=== PATIENT | male | born 1970 | race African-American/Black ===

== ENCOUNTER 2020-06-04 10:17 | Emergency (ER) | payer SELFPAY ==
[2020-06-04] MEDS ORDERED: MORPHINE 4 MG/ML SYR ONE (10:54)
[2020-06-04] MEDS ORDERED: ONDANSETRON 4 MG/2 ML VIAL ONE (10:54)
[2020-06-04 10:56] LABS: Basophils % 0.5 % (0-1.3); Hematocrit 46.5 % (39.6-49.0); Lymphocytes % 36.6 % (15.3-44.8); MPV 8.5 fL (7.6-11.3); RBC Red Blood Cell Count 5.41 M/uL (4.33-5.43)
--- NOTE | 2020-06-04 11:06 | RAD REPORT ---
EXAM DESCRIPTION: CT - Stone Protocol - 06/04/2020 10:55 am CLINICAL HISTORY: Flank pain. right flank/low back pain COMPARISON: No comparisons TECHNIQUE: Axial images were obtained without oral or IV contrast. Lack of contrast limits solid org an and vascular assessment. The [id number] spans the entirety of the system partially obscuring uppermost abdomen and lung bases. Coronal reformatted images were obtained and reviewed. All CT scans are performed using dose optimization technique as appropriate and may include automated exposure control or mA/KV adjustment according to patient size. FINDINGS: The lower lung leach are clear. Imaged portions of the liver and spleen show no suspicious findings on non-contrast imaging. The panc reas and adrenal glands are normal. No pathologic lymphadenopathy in the abdomen or pelvis. No urinary tract stones or obstructive uropathy. No bowel obstruction, free air, free fluid or abscess. Normal appendix noted. No significant bony abnormality. Small umbilical and left inguinal hernia containing fat. IMPRESSION: No urinary tract stones or obstructive uropathy.
[2020-06-04 11:12] LABS: Albumin 4.1 g/dL (3.4-5.0); Bilirubin Direct 0.2 mg/dL (0-0.2); Bilirubin Total 0.7 mg/dL (0.2-1.0); Potassium 4.2 mmol/L (3.5-5.1); Protein, Total 9.5 g/dL (6.4-8.2)
[2020-06-04 11:13] LABS: Urine Blood NEGATIVE (NEG); Urine Glucose NEGATIVE (NEG); Urine Protein 2+ (NEG); Urine Specific Gravity >1.030 (1.005-1.030); Urine pH 5.5 (5.0-7.0)
[2020-06-04 11:16] LABS: Urine Bacteria <20 /HPF (NONE SEEN); Urine Culture Reflex Order NOT NEEDED; Urine Mucus 3+ /HPF (NONE SEEN); Urine RBC <5 /HPF (NONE SEEN)
--- NOTE | 2020-06-04 11:27 | ER ---
Nurse's Notes [facility] Name: Noah Putnam Age: 49 yrs Sex: Male : 1970 Arrival Date: 06/04/2020 Time: 10:19 Bed 14 Private MD: Diagnosis: Low back pain;Muscle spasm of back Presentation: 06/04 10:30 Chief complaint: Patient states: right low back pain started this morning around 7 am, iw also had dark/orange colored urine, denies abd pain or n/v. Coronavirus screen: At this time, the client does not indicate any symptoms associated with coronavirus-19. Ebola Screen: Patient negative for fever greater than or equal to 101.5 degrees Fahrenheit, and additional compatible Ebola Virus Disease symptoms Patient denies exposure to infectious person. Patient denies travel to an Ebola-affected area in the 21 days before illness onset. No symptoms or risks identified at this time. Initial Sepsis Screen: Does the patient meet any 2 criteria? No. Patient's initial sepsis screen is negative. Does the patient have a suspected source of infection? No. Patient's initial sepsis screen is negative. Risk Assessment: Do you want to hurt yourself or someone else? Patient reports no desire to harm self or others. Onset of symptoms was June 04, 2020. 10:30 Method Of Arrival: Ambulatory iw 10:30 Acuity: BREEZY 3 iw Historical: - Allergies: 10:32 No Known Allergies; iw - Home Meds: 10:32 lisinopril 10 mg Oral tab 1 tab once daily [Active]; amlodipine 10 mg tab 1 tab once iw daily [Active]; - PMHx: 10:32 Hypertension; herniated disc; iw - PSHx: 10:32 wrist; iw - Immunization history:: Adult Immunizations up to date. - Social history:: Smoking status: . - Family history:: not pertinent. - Hospitalizations: : No recent hospitalization is reported. Screenin:39 Abuse screen: Denies threats or abuse. Denies injuries from another. Nutritional iw screening: No deficits noted. Tuberculosis screening: No symptoms or risk factors identified. Fall Risk None identified. Assessment: 10:30 General: Appears in no apparent distress. uncomfortable, Behavior is calm, cooperative, jl7 appropriate for age. Pain: Complains of pain in right low back Pain does not radiate. Pain currently is 10 out of 10 on a pain scale. Pain began suddenly, Is continuous. Neuro: Level of Consciousness is awake, alert, obeys commands, Oriented to person, place, time, situation. Cardiovascular: Patient's skin is warm and dry. Respiratory: Airway is patent Respiratory effort is even, unlabored, Respiratory pattern is regular, symmetrical. GI: Abdomen is non-distended. : No signs and/or symptoms were reported regarding the genitourinary system. Denies burning with urination, pain with urination. Derm: Skin is pink, warm \T\ dry. Musculoskeletal: Range of motion: intact in all extremities. 11:30 Reassessment: Patient appears in no apparent distress at this time. Patient and/or jl7 family updated on plan of care and expected duration. Pain level reassessed. Patient is alert, oriented x 3, equal unlabored respirations, skin warm/dry/pink. Patient states feeling better. Patient states symptoms have improved. 11:31 Reassessment: pt will be discharged after fluids are done infusing. jl7 Vital Signs: 10:30 BP 136 / 100; Pulse 126; Resp 15; Pulse Ox 100% ; Height 6 ft. 5 in. (195.58 cm) (R); jl7 Pain 10/10; 11:31 BP 121 / 83; Pulse 87; Resp 15; Pulse Ox 100% ; Pain 0/10; jl7 ED Course: 10:19 Patient arrived in ED. ds1 10:24 Davy Abebe MD is Attending Physician. rn 10:27 Taras Beverly RN is Primary Nurse. jl7 10:31 Triage completed. iw 10:32 Arm band placed on. iw 10:35 Patient has correct armband on for positive identification. Bed in low position. Call jl7 light in reach. Side rails up X 1. Pulse ox on. NIBP on. 10:54 Urine Microscopic Only Sent. dh3 10:55 CT Stone Protocol In Process Unspecified. EDMS 12:38 No provider procedures requiring assistance completed. IV discontinued, intact, iw bleeding controlled, No redness/swelling at site. Pressure dressing applied. Administered Medications: 10:43 Drug: Zofran (Ondansetron) 4 mg Route: IVP; Site: right antecubital; jl7 11:10 Follow up: Response: No adverse reaction jl7 10:45 Drug: morphine 4 mg Route: IVP; Site: right antecubital; jl7 11:00 Follow up: Response: No adverse reaction; Pain is decreased jl7 11:20 Drug: Decadron - Dexamethasone 10 mg Route: IVP; Site: right antecubital; jl7 11:50 Follow up: Response: No adverse reaction; Pain is decreased jl7 11:20 Drug: NS 0.9% 500 ml Route: IV; Rate: bolus; Site: right antecubital; jl7 11:50 Follow up: Response: No adverse reaction; IV Status: Completed infusion; IV Intake: jl7 500ml 11:23 Drug: TORadol - Ketorolac 15 mg Route: IVP; Site: right antecubital; jl7 11:45 Follow up: Response: No adverse reaction; Pain is decreased jl7 Outcome: 11:27 Discharge ordered by . rn 12:38 Discharged to home ambulatory. iw 12:38 Condition: good 12:38 Discharge instructions given to patient, Instructed on discharge instructions, follow up and referral plans. medication usage, Demonstrated understanding of instructions, follow-up care, medications, Prescriptions given X 3. 12:39 Patient left the ED. iw Signatures: Dispatcher [employer] EDAK Deedee Tyler ds1 Brook Siddiqui RN RN iw Nieto, Roman, MD MD rn Leal, Jahala, RN RN jl7 Stephany Membreno 3
--- NOTE | 2020-06-04 11:27 | EDPHYS ---
Physician Documentation [facility] Name: Noah Putnam Age: 49 yrs Sex: Male : 1970 Arrival Date: 06/04/2020 Time: 10:19 Bed 14 Private MD: ED Physician Davy Abebe HPI: 06/04 10:35 This 49 yrs old Black Male presents to ER via Ambulatory with complaints of Kidney rn Pain/back pain. 10:35 The patient complains of pain in the right low back. Onset: The symptoms/episode rn began/occurred this morning. Modifying factors: The symptoms are alleviated by nothing. the symptoms are aggravated by movement, palpation/percussion. Severity of pain: At its worst the pain was moderate in the emergency department the pain is unchanged. The patient has not experienced similar symptoms in the past. The patient has not recently seen a physician. Denies injury or heavy lifting. + sudden onset right lower back pain that began this morning, non-radiating, did notice urine looked "off". . Historical: - Allergies: 10:32 No Known Allergies; iw - Home Meds: 10:32 lisinopril 10 mg Oral tab 1 tab once daily [Active]; amlodipine 10 mg tab 1 tab once iw daily [Active]; - PMHx: 10:32 Hypertension; herniated disc; iw - PSHx: 10:32 wrist; iw - Immunization history:: Adult Immunizations up to date. - Social history:: Smoking status: . - Family history:: not pertinent. - Hospitalizations: : No recent hospitalization is reported. ROS: 10:35 Constitutional: Negative for fever, chills, and weight loss, Eyes: Negative for injury, rn pain, redness, and discharge, Cardiovascular: Negative for chest pain, palpitations, and edema, Respiratory: Negative for shortness of breath, cough, wheezing, and pleuritic chest pain, Abdomen/GI: Negative for abdominal pain, nausea, vomiting, diarrhea, and constipation, Back: + right lower back pain : Negative for injury, bleeding, discharge, and swelling, MS/Extremity: Negative for injury and deformity, Skin: Negative for injury, rash, and discoloration, Neuro: Negative for headache, weakness, numbness, tingling, and seizure. Exam: 10:35 Constitutional: This is a well developed, well nourished patient who is awake, alert, rn and in no acute distress. Head/Face: Normocephalic, atraumatic. Cardiovascular: Tachycardic, regular Respiratory: Speaking full sentences. No increased work of breathing, no retractions or nasal flaring. Abdomen/GI: soft, non-tender Back: No spinal tenderness. No costovertebral tenderness. Full range of motion. Skin: Warm, dry with normal turgor. Normal color with no rashes, no lesions, and no evidence of cellulitis. MS/ Extremity: Pulses equal, no cyanosis. Neurovascular intact. Full, normal range of motion. Equal circumference. Neuro: Awake and alert, GCS 15, oriented to person, place, time, and situation. Cranial nerves II-XII grossly intact. Motor strength 5/5 in all extremities. Sensory grossly intact. Cerebellar exam normal. Normal gait. Vital Signs: 10:30 BP 136 / 100; Pulse 126; Resp 15; Pulse Ox 100% ; Height 6 ft. 5 in. (195.58 cm) (R); jl7 Pain 10/10; 11:31 BP 121 / 83; Pulse 87; Resp 15; Pulse Ox 100% ; Pain 0/10; jl7 MDM: 10:24 Patient medically screened. rn 11:25 Differential diagnosis: nephrolithiasis, UTI, muscle strain, radiculopathy. Data rn reviewed: vital signs, nurses notes, lab test result(s), radiologic studies, CT scan, and as a result, I will discharge patient. Counseling: I had a detailed discussion with the patient and/or guardian regarding: the historical points, exam findings, and any diagnostic results supporting the discharge/admit diagnosis, lab results, radiology results, the need for outpatient follow up, to return to the emergency department if symptoms worsen or persist or if there are any questions or concerns that arise at home. Response to treatment: the patient's symptoms have mildly improved after treatment, and as a result, I will discharge patient. Special discussion: I discussed with the patient/guardian in detail that at this point there is no indication for admission to the hospital. It is understood, however, that if the symptoms persist or worsen the patient needs to return immediately for re-evaluation. ED course: CT stone protocol neg for acute finding, will dc home with pcp f/u, steroids and muscle relaxer. . 06/04 10:34 Order name: Basic Metabolic Panel; Complete Time: 11:25 rn 06/04 10:34 Order name: CBC with Diff; Complete Time: 11:11 rn 06/04 10:34 Order name: Hepatic Function; Complete Time: 11:25 rn 06/04 10:34 Order name: Lipase; Complete Time: 11:25 rn 06/04 10:34 Order name: Urine Microscopic Only; Complete Time: 11:25 rn 06/04 10:58 Order name: Urine Dipstick--Ancillary (enter results); Complete Time: 11:25 bd 06/04 10:34 Order name: IV Saline Lock; Complete Time: 10:50 rn 06/04 10:34 Order name: Labs collected and sent; Complete Time: 10:50 rn 06/04 10:34 Order name: CT Stone Protocol; Complete Time: 11: rn 06/04 10:34 Order name: Urine Dipstick-Ancillary (obtain specimen); Complete Time: 10:40 rn Administered Medications: 10:43 Drug: Zofran (Ondansetron) 4 mg Route: IVP; Site: right antecubital; jl7 11:10 Follow up: Response: No adverse reaction jl7 10:45 Drug: morphine 4 mg Route: IVP; Site: right antecubital; jl7 11:00 Follow up: Response: No adverse reaction; Pain is decreased jl7 11:20 Drug: Decadron - Dexamethasone 10 mg Route: IVP; Site: right antecubital; jl7 11:50 Follow up: Response: No adverse reaction; Pain is decreased jl7 11:20 Drug: NS 0.9% 500 ml Route: IV; Rate: bolus; Site: right antecubital; jl7 11:50 Follow up: Response: No adverse reaction; IV Status: Completed infusion; IV Intake: jl7 500ml 11:23 Drug: TORadol - Ketorolac 15 mg Route: IVP; Site: right antecubital; jl7 11:45 Follow up: Response: No adverse reaction; Pain is decreased jl7 Disposition: 06/04/20 11:27 Discharged to Home. Impression: Low back pain, Muscle spasm of back. - Condition is Stable. - Discharge Instructions: Back Pain, Adult, Muscle Cramps and Spasms, Musculoskeletal Pain, Back Exercises, [id number]. - Prescriptions for Ultram 50 mg Oral Tablet - take 1 tablet by ORAL route every 6 hours As needed; 12 tablet. Cyclobenzaprine 10 mg Oral Tablet - take 1 tablet by ORAL route every 8 hours As needed; 15 tablet. Medrol (Soto) 4 mg Oral Tablets, Dose Pack - take 1 tablet by ORAL route as directed - follow package instructions; 1 packet. - Work release form, Medication Reconciliation Form, Thank You Letter, Antibiotic Education, Prescription Opioid Use form. - Follow up: Private Physician; When: As needed; Reason: Recheck today's complaints, Re-evaluation by your physician. - Problem is new. - Symptoms have improved. Signatures: Dispatcher [employer] EDBrook Farris RN RN iw Nieto, Roman, MD MD rn Leal, Jahala, RN RN jl7 Corrections: (The following items were deleted from the chart) 12:39 11:27 06/04/2020 11:27 Discharged to Home. Impression: Low back pain; Muscle spasm of iw back. Condition is Stable. Forms are Medication Reconciliation Form, Thank You Letter, Antibiotic Education, Prescription Opioid Use. Follow up: Private Physician; When: As needed; Reason: Recheck today's complaints, Re-evaluation by your physician. Problem is new. Symptoms have improved. rn
[2020-06-04] MEDS ORDERED: KETOROLAC 30 MG/ML INJ ONE (11:33)
[2020-06-04] MEDS ORDERED: dexAMETHasone 10 MG/ML VIAL ONE (11:33)
[2020-06-04] MEDS ORDERED: NA CHLORIDE 0.9% 500 ML ONE (11:34)
[2020-06-04 12:44] VITALS: O2SAT 100
[2020-06-04 12:45] VITALS: BP 121/83
== END 2020-06-04 12:39 | disposition home or self-care (01) ==
LOC: ER 10:17
DX: M54.5 Low back pain (principal); M62.830 Muscle spasm of back; I10 Essential (primary) hypertension
CPT/HCPCS: 36415; 74176; 76377; 80048; 80076; 81003; 81015; 83690; 85025; 96374; 96375; 99284; J1100; J2405; J7040

== ENCOUNTER 2021-04-03 17:02 | Emergency (ER) | payer SELFPAY ==
--- OUTSIDE RECORDS SUMMARY | 2021-04-03 17:04 | XMS REPORT | Continuity of Care Document ---
:1970 Author Organization [facility] t Address [address] [place] [address] Care Team Providers Name Role Phone Harvinder WALDROP Attending Clinician Pcp, Does Not Have A Attending Clinician Isabela BARRIGA, T Attending Clinician Unavailable Edith Bustillo Attending Clinician Ember Siddiqui DO Attending Clinician Doctor Unassigned, Name Attending Clinician Unavailable Yenifer Valdivia Attending Clinician Problems This patient has no known problems. Allergies, Adverse Reactions, Alerts This patient has no known allergies or adverse reactions. Medications This patient has no known medications. Procedures This patient has no known procedures. Encounters Start End Encounter Admission Attending Care Care Encounter Source Date/Time Date/Time Type Type Clinicians Facility Department ID 2021-04-01 2021-04-01 Emergency [facility] [id number] 20:06:00 21:56:00 Kate Krueger [id number] [place] [id number] [place] [id number] 2021-03-17 2021-03-17 Emergency [facility] [id number] 20:09:00 22:19:00 Kate Krueger [id number] [place] [id number] [place] [id number] 2020-11-15 2020-11-15 Telephone Pcp[facility] [id number] 00:00:00 00:00:00 Patient EVE [id number] Does Not HOSPITAL [id number] Have A [id number] 2020-11-15 2020-11-15 Letter KARL Mar [id number] 00:00:00 00:00:00 (Out) Mirna PRADO [id number] [place] [id number] 2020-11-14 2020-11-14 Emergency [facility] [id number] 21:29:00 22:55:00 Stacey Krueger [id number] [place] [id number] [place] [id number] 2020-09-30 2020-09-30 Emergency [facility] [id number] 08:03:00 10:45:00 Jessy Krueger [id number] [place] [id number] 2020-09-30 2020-09-30 Orders Doctor KARL [id number] 00:00:00 00:00:00 Only Unassigned, EVE [id number] [place] [facility] [id number] 2020-07-01 2020-07-01 Emergency [facility] [id number] 21:58:00 23:54:00 Felipe Krueger [id number] [place] [id number] [place] [id number] Results This patient has no known results.
--- NOTE | 2021-04-03 19:16 | ER ---
Nurse's Notes [facility] Name: Noah Putnam Age: 50 yrs Sex: Male : 1970 Arrival Date: 04/03/2021 Time: 17:06 Bed 12 Private MD: Diagnosis: Acute sinusitis, unspecified Presentation: 04/03 17:13 Chief complaint: Patient states: Sinus congestion, cough x 8 days. Denies fever. Was at [address] on 04/01/2021, was tested negative for Strep, Flu and Covid. I am just having severe sinus infection and drainage. Denies fever. Coronavirus screen: The client reports previous COVID testing was negative. Date of collection: April 01, 2021. Ebola Screen: Patient negative for fever greater than or equal to 101.5 degrees Fahrenheit, and additional compatible Ebola Virus Disease symptoms Patient denies exposure to infectious person. Patient denies travel to an Ebola-affected area in the 21 days before illness onset. No symptoms or risks identified at this time. Initial Sepsis Screen: Does the patient meet any 2 criteria? No. Patient's initial sepsis screen is negative. Does the patient have a suspected source of infection? No. Patient's initial sepsis screen is negative. Risk Assessment: Do you want to hurt yourself or someone else? Patient reports no desire to harm self or others. Onset of symptoms was April 03, 2021. 17:13 Method Of Arrival: Ambulatory ca1 17:13 Acuity: BREEZY 4 ca1 Historical: - Allergies: 17:17 No Known Allergies; ca1 - Home Meds: 17:17 amlodipine 10 mg tab 1 tab once daily [Active]; lisinopril 10 mg Oral tab 1 tab once ca1 daily [Active]; - PMHx: 17:17 Herniated disc; Hypertension; ca1 - Immunization history:: Client reports having NOT received the Covid vaccine. Flu vaccine is up to date. - Social history:: Smoking status: Patient denies any tobacco usage or history of. Screenin:00 Abuse screen: Denies threats or abuse. Denies injuries from another. Nutritional ca1 screening: No deficits noted. Tuberculosis screening: No symptoms or risk factors identified. Fall Risk None identified. Assessment: 17:13 Reassessment: PT refused swabs at this time. ca1 19:00 General: Appears in no apparent distress. comfortable, Behavior is calm, cooperative, ca1 appropriate for age. Pain: Denies pain. Neuro: Level of Consciousness is awake, alert, obeys commands, Oriented to person, place, time, situation. Cardiovascular: Capillary refill < 3 seconds Patient's skin is warm and dry. Respiratory: Airway is patent Respiratory effort is even, unlabored, Respiratory pattern is regular, symmetrical, Breath sounds are clear bilaterally. EENT: Reports nasal congestion nasal discharge. Derm: Skin is intact, is healthy with good turgor, Skin is pink, warm \T\ dry. Musculoskeletal: Circulation, motion, and sensation intact. Capillary refill < 3 seconds. 19:58 Reassessment: Patient appears in no apparent distress at this time. Patient is alert, ca1 oriented x 3, equal unlabored respirations, skin warm/dry/pink. Vital Signs: 17:13 BP 102 / 58; Pulse 79; Resp 16 S; Temp 97.6(TE); Pulse Ox 99% on R/A; Weight 126.1 kg ca1 (R); Height 6 ft. 5 in. (195.58 cm) (R); Pain 6/10; 19:00 BP 111 / 68; Pulse 86; Resp 16 S; Pulse Ox 99% on R/A; ca1 17:13 Body Mass Index 32.97 (126.10 kg, 195.58 cm) ca1 ED Course: 17:06 Patient arrived in ED. ds1 17:16 Triage completed. ca1 17:17 Arm band placed on right wrist. ca1 18:58 Mary Kingston, LINUS is Primary Nurse. ca1 18:59 Jimbo Galvan PA is PHCP. cp 18:59 Davy Abebe MD is Attending Physician. cp 19:00 Patient has correct armband on for positive identification. Bed in low position. Call ca1 light in reach. 19:58 No provider procedures requiring assistance completed. Patient did not have IV access ca1 during this emergency room visit. Administered Medications: No medications were administered Outcome: 19:16 Discharge ordered by . cp 19:58 Discharged to home ambulatory. ca1 19:58 Condition: stable 19:58 Discharge instructions given to patient, Instructed on discharge instructions, follow up and referral plans. medication usage, Demonstrated understanding of instructions, follow-up care, medications, Prescriptions given X 3. 19:58 Patient left the ED. ca1 Signatures: Deedee Tyler ds1 Jimbo Galvan, PA PA cp Acob, Mary, RN RN ca1
--- NOTE | 2021-04-03 19:16 | EDPHYS ---
Physician Documentation [facility] Name: Noah Putnam Age: 50 yrs Sex: Male : 1970 Arrival Date: 04/03/2021 Time: 17:06 Bed 12 Private MD: ED Physician Davy Abebe HPI: 04/03 19:10 This 50 yrs old Black Male presents to ER via Ambulatory with complaints of Congestion, cp Cough, Sinus Congestion. 19:11 The patient or guardian reports sinus pressure/congestion. Onset: The symptoms/episode cp began/occurred 8 day(s) ago. Associated signs and symptoms: Pertinent positives: rhinorrhea, sore throat, productive cough, Pertinent negatives: diarrhea, ear ache, fever, vomiting. Severity of symptoms: in the emergency department the symptoms are unchanged despite home interventions. Historical: - Allergies: 17:17 No Known Allergies; ca1 - Home Meds: 17:17 amlodipine 10 mg tab 1 tab once daily [Active]; lisinopril 10 mg Oral tab 1 tab once ca1 daily [Active]; - PMHx: 17:17 Herniated disc; Hypertension; ca1 - Immunization history:: Client reports having NOT received the Covid vaccine. Flu vaccine is up to date. - Social history:: Smoking status: Patient denies any tobacco usage or history of. ROS: 19:12 Eyes: Negative for injury, pain, redness, and discharge. cp 19:12 Constitutional: Negative for body aches, chills, fever, poor PO intake. 19:12 ENT: Positive for rhinorrhea, sinus congestion, sinus pain, sore throat. 19:12 Respiratory: Positive for cough, "sounds productive", Negative for shortness of breath, wheezing. 19:12 Abdomen/GI: Negative for abdominal pain, vomiting, diarrhea, constipation. 19:12 Skin: Negative for rash. 19:12 All other systems are negative. Exam: 19:13 Constitutional: The patient appears in no acute distress, alert, awake, non-toxic, well cp developed, well nourished. 19:13 Head/face: Sinus tenderness, that is moderate, is located over the right frontal sinus, left frontal sinus, right maxillary sinus and left maxillary sinus. 19:13 Eyes: Periorbital structures: appear normal, Conjunctiva: normal, no exudate, no injection, Sclera: no appreciated abnormality, Lids and lashes: appear normal, bilaterally. 19:13 ENT: External ear(s): are unremarkable, Ear canal(s): are normal, clear, TM's: dullness, bilaterally, Nose: is normal, Mouth: Lips: moist, Oral mucosa: moist, Posterior pharynx: Airway: no evidence of obstruction, patent. 19:13 Neck: ROM/movement: is normal, is supple, no meningismus, no nuchal rigidity, Lymph nodes: no appreciated lymphadenopathy. 19:13 Chest/axilla: Inspection: normal. 19:13 Cardiovascular: Rate: normal. 19:13 Respiratory: the patient does not display signs of respiratory distress, Respirations: normal, no use of accessory muscles, no retractions, labored breathing, is not present, Breath sounds: decreased breath sounds, are not appreciated, stridor, is not appreciated, + upper airway congestion. wheezing: is not appreciated. Vital Signs: 17:13 BP 102 / 58; Pulse 79; Resp 16 S; Temp 97.6(TE); Pulse Ox 99% on R/A; Weight 126.1 kg ca1 (R); Height 6 ft. 5 in. (195.58 cm) (R); Pain 6/10; 19:00 BP 111 / 68; Pulse 86; Resp 16 S; Pulse Ox 99% on R/A; ca1 17:13 Body Mass Index 32.97 (126.10 kg, 195.58 cm) ca1 MDM: 19:10 Patient medically screened. cp 19:14 Differential diagnosis: bronchitis, flu, URI, sinusitis, bronchitis, pneumonia. Data cp reviewed: vital signs, nurses notes, and as a result, I will discharge patient. Counseling: I had a detailed discussion with the patient and/or guardian regarding: the historical points, exam findings, and any diagnostic results supporting the discharge/admit diagnosis, to return to the emergency department if symptoms worsen or persist or if there are any questions or concerns that arise at home. Administered Medications: No medications were administered Disposition: 19:20 Chart complete. cp 23:17 Co-signature as Attending Physician, Davy Abebe MD. rn Disposition Summary: 04/03/21 19:16 Discharge Ordered Location: Home cp Problem: new cp Symptoms: are unchanged cp Condition: Stable cp Diagnosis - Acute sinusitis, unspecified cp Followup: cp - With: Private Physician - When: 2 - 3 days - Reason: Worsening of condition Discharge Instructions: - Discharge Summary Sheet cp - Sinusitis, Adult cp Forms: - Medication Reconciliation Form cp - Thank You Letter cp - Antibiotic Education cp - Prescription Opioid Use cp Prescriptions: - Flonase Allergy Relief 50 mcg/actuation Nasal spray,suspension - spray 1 spray by INTRANASAL route once daily; 1 Applicator; Refills: 0, Product cp Selection Permitted - Augmentin 875-125 mg Oral Tablet - take 1 tablet by ORAL route every 12 hours for 10 days; 20 tablet; Refills: 0, cp Product Selection Permitted - Tessalon Perles 100 mg Oral Capsule - take 2 capsule by ORAL route every 8 hours As needed; 30 capsule; Refills: 0, cp Product Selection Permitted Signatures: Dvay Abebe MD MD rn Jimbo Galvan PA PA cp Acob, Cheryl RN RN ca1
[2021-04-03 20:03] VITALS: TEMP 97.6; O2SAT 99
[2021-04-03 20:04] VITALS: BP 111/68
== END 2021-04-03 19:58 | disposition home or self-care (01) ==
LOC: ER 17:02
DX: J01.90 Acute sinusitis, unspecified (principal); I10 Essential (primary) hypertension
CPT/HCPCS: 99282

== ENCOUNTER 2021-07-14 18:47 | Emergency (ER) | payer OTHER, SELFPAY ==
--- NOTE | 2021-07-14 20:48 | RAD REPORT ---
EXAM DESCRIPTION: RAD - Lumbar Spine 3 Views - 07/14/2021 8:20 pm CLINICAL HISTORY: Back pain FINDINGS: The alignment of the lumbar spine is satisfactory. No fracture or dislocation is seen. Mild to moderate disc space narrowing L5-S1 with mild subchondral sclerosis and osteophytes.
[2021-07-14] MEDS ORDERED: KETOROLAC 30 MG/ML INJ ONE (21:10)
--- NOTE | 2021-07-14 21:52 | EDPHYS ---
Physician Documentation [facility] Name: Noah Putnam Age: 50 yrs Sex: Male : 1970 Arrival Date: 07/14/2021 Time: 18:51 Bed 6 Private MD: ED Physician Anders Roman HPI: 07/14 20:06 This 50 yrs old Black Male presents to ER via Ambulatory with complaints of Back Pain, sp3 Leg Pain. 20:06 -year-old male with history of hypertension and prior lumbar disc herniation and left sp3 wrist fracture secondary to a fall in 2017 now presents with left lower leg radiculopathy and lumbar pain. Patient has not had any issues with this since 2017. Over the last 48 hours his pain is increased secondary to a mechanical fall he suffered 3 days ago after slipping on the floor. He denies changes in bowel or bladder patterns or any other secondary injury. There is no saddle paresthesia or lower extremity paresthesias. Patient is still able to ambulate though it is painful. On ROS patient denies headache, neck pain, chest pain, shortness breath, abdominal pain, nausea, vomiting, diarrhea, syncope, loss of pain or temperature, memory loss, any other neurological symptoms. He also denies fever and or URI symptoms, known sick contacts, or travel history. Patient is from [place] and has no local physician.. Historical: - Allergies: 19:11 No Known Allergies; lp1 - Home Meds: 19:11 amlodipine 10 mg tab 1 tab once daily [Active]; lisinopril 10 mg Oral tab 1 tab once lp1 daily [Active]; - PMHx: 19:11 Herniated disc; Hypertension; lp1 - PSHx: 19:11 Left arm surgery; lp1 - Immunization history:: Adult Immunizations up to date, Client reports receiving the 1st dose of the Covid vaccine. - Social history:: Smoking status: Patient denies any tobacco usage or history of. ROS: 20:11 Constitutional: Negative for fever, chills, and weight loss, Eyes: Negative for injury, sp3 pain, redness, and discharge, ENT: Negative for injury, pain, and discharge, Neck: Negative for injury, pain, and swelling, Cardiovascular: Negative for chest pain, palpitations, and edema, Respiratory: Negative for shortness of breath, cough, wheezing, and pleuritic chest pain, Abdomen/GI: Negative for abdominal pain, nausea, vomiting, diarrhea, and constipation, Skin: Negative for injury, rash, and discoloration, Allergy/Immunology: Negative for hives, rash, and allergies, Endocrine: Negative for neck swelling, polydipsia, polyuria, polyphagia, and marked weight changes, Hematologic/Lymphatic: Negative for swollen nodes, abnormal bleeding, and unusual bruising. 20:11 All other systems are negative. Exam: 20:12 Constitutional: This is a well developed, well nourished patient who is awake, alert, sp3 and in no acute distress. Head/Face: Normocephalic, atraumatic. Chest/axilla: Normal chest wall appearance and motion. Nontender with no deformity. No lesions are appreciated. Cardiovascular: Regular rate and rhythm with a normal S1 and S2. No gallops, murmurs, or rubs. Normal PMI, no JVD. No pulse deficits. Respiratory: Lungs have equal breath sounds bilaterally, clear to auscultation and percussion. No rales, rhonchi or wheezes noted. No increased work of breathing, no retractions or nasal flaring. Abdomen/GI: Soft, non-tender, with normal bowel sounds. No distension or tympany. No guarding or rebound. No evidence of tenderness throughout. Skin: Warm, dry with normal turgor. Normal color with no rashes, no lesions, and no evidence of cellulitis. MS/ Extremity: Pulses equal, no cyanosis. Neurovascular intact. Pain on straight leg raise on the left side at 25 degrees. Reflexes are normal as is Babinski's bilaterally. Neuro: Awake and alert, GCS 15, oriented to person, place, time, and situation. Cranial nerves II-XII grossly intact. Motor strength 5/5 in all extremities. Sensory grossly intact. Cerebellar exam normal. Antalgic gait secondary to pain. Psych: Awake, alert, with orientation to person, place and time. Behavior, mood, and affect are within normal limits. Vital Signs: 19:12 BP 131 / 85; Pulse 90; Resp 18; Temp 97.7(TE); Pulse Ox 97% on R/A; Weight 127.01 kg lp1 (R); Height 6 ft. 5 in. (195.58 cm); Pain 8/10; 20:39 BP 130 / 93; Pulse 81; Resp 18; Pulse Ox 98% on R/A; lh3 22:07 BP 126 / 72; Pulse 78; Resp 18; Pulse Ox 98% on R/A; lh3 19:12 Body Mass Index 33.20 (127.01 kg, 195.58 cm) lp1 MDM: 20:04 Patient medically screened. sp3 20:13 Data reviewed: vital signs, nurses notes. ED course: Patient will need lumbar x-rays sp3 secondary to his fall. MRI is not currently available and/or indicated emergently. Will need outpatient MRI to assess his discs. Will treat with ketorolac 60 mg intramuscularly and discharged on diclofenac and p.o. steroids. Will refer to local orthopedics for continued follow-up. Patient understands signs symptoms to look for to return including loss of bowel or bladder and inability to ambulate. We will also give patient light duty work note as he may continue to go to work.. 21:51 ED course: Lumbar x-rays are normal. Will discharge patient home on diclofenac and sp3 steroids orally.. 07/14 20:05 Order name: Lumbar Spine (3 Views) XRAY; Complete Time: 21:51 sp3 Administered Medications: 20:31 Drug: Ketorolac 60 mg Route: IM; Site: right deltoid; lh3 22:07 Follow up: Response: No adverse reaction lh3 Disposition Summary: 07/14/21 21:52 Discharge Ordered Location: Home sp3 Condition: Stable sp3 Diagnosis - Radiculopathy, lumbar region sp3 Followup: sp3 - With: Kennedy Dozier MD - When: Upon discharge from the Emergency Department - Reason: Recheck today's complaints Discharge Instructions: - Discharge Summary Sheet sp3 - Lumbosacral Radiculopathy sp3 - Radicular Pain sp3 - Form - Excuse from Work, School, or Physical Activity lh3 Forms: - Medication Reconciliation Form sp3 - Thank You Letter sp3 - Antibiotic Education sp3 - Prescription Opioid Use sp3 Prescriptions: - Diclofenac Sodium 75 mg Oral Tablet Sustained Release - take 1 tablet by ORAL route 2 times per day; 30 tablet; Refills: 0, Product sp3 Selection Permitted - Medrol (Soto) 4 mg Oral Tablets, Dose Pack - take 1 tablet by ORAL route as directed - follow package instructions; 1 sp3 packet; Refills: 0, Product Selection Permitted Signatures: Dispatcher [employer] Darlin Stark RN RN lp1 Anders Roman MD MD sp3 Renee Nassar RN RN lh3
--- NOTE | 2021-07-14 21:52 | ER ---
Nurse's Notes [facility] Name: Noah Putnam Age: 50 yrs Sex: Male : 1970 Arrival Date: 07/14/2021 Time: 18:51 Bed 6 Private MD: Diagnosis: Radiculopathy, lumbar region Presentation: 07/14 19:10 Chief complaint: Patient states: Low back pain x 2 days, reports today, pain radiating lp1 down left leg, tingling, shooting pain; Hx of old L7 injury with herniated discs; Denies any recent injury. Coronavirus screen: At this time, the client does not indicate any symptoms associated with coronavirus-19. Ebola Screen: No symptoms or risks identified at this time. Risk Assessment: Do you want to hurt yourself or someone else? Patient reports no desire to harm self or others. Onset of symptoms was July 14, 2021. 19:10 Method Of Arrival: Ambulatory lp1 19:10 Acuity: BREEZY 3 lp1 19:12 Initial Sepsis Screen: Does the patient meet any 2 criteria? No. Patient's initial lp1 sepsis screen is negative. Does the patient have a suspected source of infection? No. Patient's initial sepsis screen is negative. Triage Assessment: 22:08 General: Appears. lh3 Historical: - Allergies: 19:11 No Known Allergies; lp1 - Home Meds: 19:11 amlodipine 10 mg tab 1 tab once daily [Active]; lisinopril 10 mg Oral tab 1 tab once lp1 daily [Active]; - PMHx: 19:11 Herniated disc; Hypertension; lp1 - PSHx: 19:11 Left arm surgery; lp1 - Immunization history:: Adult Immunizations up to date, Client reports receiving the 1st dose of the Covid vaccine. - Social history:: Smoking status: Patient denies any tobacco usage or history of. Screenin:31 Abuse screen: Denies threats or abuse. Denies injuries from another. Nutritional lh3 screening: No deficits noted. Tuberculosis screening: No symptoms or risk factors identified. Fall Risk None identified. Assessment: 20:31 Pain: Complains of pain in low back area Pain radiates to left leg Pain level that lh3 patient reports is acceptable is 8 out of 10 on a pain scale. Neuro: Level of Consciousness is awake, alert, obeys commands. Vital Signs: 19:12 BP 131 / 85; Pulse 90; Resp 18; Temp 97.7(TE); Pulse Ox 97% on R/A; Weight 127.01 kg lp1 (R); Height 6 ft. 5 in. (195.58 cm); Pain 8/10; 20:39 BP 130 / 93; Pulse 81; Resp 18; Pulse Ox 98% on R/A; lh3 22:07 BP 126 / 72; Pulse 78; Resp 18; Pulse Ox 98% on R/A; lh3 19:12 Body Mass Index 33.20 (127.01 kg, 195.58 cm) lp1 ED Course: 18:51 Patient arrived in ED. as 19:11 Triage completed. lp1 19:11 Arm band placed on left wrist. lp1 19:44 Anders Roman MD is Attending Physician. sp3 20:00 Marybel Cerna, RN is Primary Nurse. bs2 20:20 Lumbar Spine (3 Views) XRAY In Process Unspecified. EDMS 20:31 Patient has correct armband on for positive identification. Bed in low position. Call lh3 light in reach. 20:31 No provider procedures requiring assistance completed. Patient did not have IV access lh3 during this emergency room visit. 21:52 Kennedy Dozier MD is Referral Physician. sp3 Administered Medications: 20:31 Drug: Ketorolac 60 mg Route: IM; Site: right deltoid; 3 22:07 Follow up: Response: No adverse reaction 3 Outcome: 21:52 Discharge ordered by . sp3 22:08 Discharged to home ambulatory. lh3 22:08 Condition: good 22:08 Discharge instructions given to patient, Instructed on discharge instructions, follow up and referral plans. Demonstrated understanding of instructions, follow-up care, medications, Prescriptions given X 2. 22:09 Patient left the ED. 3 Signatures: Dispatcher [employer] EDMS Nataly Petersen Laura, RN RN lp1 Anders Roman MD MD sp3 Marybel Cerna, RN RN bs2 Renee Nassar RN RN lh3 Corrections: (The following items were deleted from the chart) 19:15 19:12 Pulse 90bpm; Resp 18bpm; Pulse Ox 97% RA; Temp 97.7F Temporal; 127.01 kg lp1 Reported; Height 6 ft. 5 in.; BMI: 33.2; Pain 8/10; lp1
[2021-07-14 22:43] VITALS: TEMP 97.7
[2021-07-14 22:45] VITALS: O2SAT 98
[2021-07-14 22:46] VITALS: BP 126/72
== END 2021-07-14 22:09 | disposition home or self-care (01) ==
LOC: ER 18:47
DX: M54.12 Radiculopathy, cervical region (principal); I10 Essential (primary) hypertension
CPT/HCPCS: 72100; 96372; 99283

== ENCOUNTER 2021-08-19 22:05 | Emergency (ER) | payer OTHER ==
--- OUTSIDE RECORDS SUMMARY | 2021-08-19 22:10 | XMS REPORT | Continuity of Care Document ---
:1970 Author Organization [facility] t Address [address] [place] [address] Care Team Providers Name Role Phone Pcp, Does Not Have A Primary Care Physician Shannon WALDROP, B Attending Clinician Yenifer ORTEGA Attending Clinician Unavailable Elliot HICKS, G Attending Clinician Nurse, Pob Immunization Attending Clinician Unavailable Christopher Clarke DO Attending Clinician Elías WALDROP Attending Clinician ELÍAS Attending Clinician Unavailable Pcp, Does Not Have A Attending Clinician Isabela BARRIGA T Attending Clinician Unavailable Aleida BUSTAMANTE R Attending Clinician Ember Siddiqui DO Attending Clinician Doctor Unassigned, Name Attending Clinician Unavailable Payers Payer Name Policy Type Policy Number Effective Date Expiration Date S ource Problems Condition Condition Condition Status Onset Resolution Last Treating Co mments Source Name Details Category Date Date Treatment Clinician Date No known No known Disease Unive rs active active ity of problems problems [facility] Allergies, Adverse Reactions, Alerts Allergy Allergy Status Severity Reaction(s) Onset Inactive Treating Comm ents Source Name Type Date Date Clinician NO KNOWN Drug Active Univers ALLERGIE Class ity of S [facility] Social History Social Habit Start Date Stop Date Quantity Comments Source Exposure to Not sure [facility] SARS-CoV-2 (event) Medica l Branch Sex Ass[birth year] At [birth year] [facility] 00:00:00 00:00:00 Medical Branch Smoking Status Start Date Stop Date Source Unknown if ever smoked [facility] Medical Branch Medications Ordered Filled Start Stop Current Ordering Indication Dosage Frequency Signature Comments Components Source Medication Medication Date Date Medication? Clinician (SIG) Name Name NaCl 0.9% 2020-0 2020- No 1000mL at 999 Uni vers (NS) bolus 9-10 09-10 mL/hr, ity of infusion 03:45: 05:00 1,000 mL, Jim as 1,000 mL 00 :00 IV Medical Piggyback, Branch ONCE, 1 dose, Carrie 05/23/21 at 2245, STAT NaCl 0.9% 2020-0 2020- No 1000mL at 999 Uni vers (NS) bolus 9-10 09-10 mL/hr, ity of infusion 03:45: 05:00 1,000 mL, Jim as 1,000 mL 00 :00 IV Medical Piggyback, Branch ONCE, 1 dose, Carrie 05/23/21 at 2245, STAT NaCl 0.9% 2020-0 2020- No 1000mL at 999 Uni vers (NS) bolus 9-10 09-10 mL/hr, ity of infusion 03:00: 03:00 1,000 mL, Jim as 1,000 mL 00 :00 IV Medical Piggyback, Branch ONCE, 1 dose, Carrie 05/23/21 at 2200, STAT NaCl 0.9% 2020-0 2020- No 1000mL at 999 Uni vers (NS) bolus 9-10 09-10 mL/hr, ity of infusion 03:00: 03:00 1,000 mL, Jim as 1,000 mL 00 :00 IV Medical Piggyback, Branch ONCE, 1 dose, Carrie 05/23/21 at 2200, STAT NaCl 0.9% 2020-0 2020- Yes 500mL at 999 Univ ers (NS) bolus 9-09 09-09 mL/hr, 500 it y of infusion 03:15: 15:14 mL, IV [place] 500 mL 00 :00 Piggyback, Medical ONCE, 1 Branch dose, 05/22/21 at 2215, STAT NaCl 0.9% 2020- Yes 500mL at 999 Univ ers (NS) bolus 05-23- mL/hr, 500 it y of infusion 03:15: 15:14 mL, IV [place] 500 mL 00 :00 Piggyback, Medical ONCE, 1 Branch dose, 05/22/21 at 2215, STAT dexamethaso 2020- No 10mg 10 mg, Uni vers ne 04-02 Intramuscu ity of (DECADRON 03:30: 02:47 lar, ONCE, [place] PHOSPHATE) 00 :00 1 dose, Medica l injection Mon Branch 10 mg 04/01/21 at 2230, STAT ketorolac 2020- No 60mg 60 mg, Unive rs (TORADOL) 03-18 Intramuscu ity of injection 04:00: 02:56 lar, ONCE, [place] 60 mg 00 :00 1 dose, Medical 03/17/21 Branch at 2300, VASILIY
Fa culty member approving Restricted medication : EMERGENCY ROOM, ibuprofen Yes [id number] 800mg Take 1 Univers 800 mg 7-04 tablet by ity of tablet 00:00: mouth [place] 00 every 8 Medical (eight) Branch hours as needed for Pain (scale 4-6). ibuprofen Yes [id number] 800mg Take 1 Univers 800 mg 7-04 tablet by ity of tablet 00:00: mouth [place] 00 every 8 Medical (eight) Branch hours as needed for Pain (scale 4-6). ibuprofen Yes [id number] 800mg Take 1 Univers 800 mg 7-04 tablet by ity of tablet 00:00: mouth [place] 00 every 8 Medical (eight) Branch hours as needed for Pain (scale 4-6). ibuprofen Yes [id number] 800mg Take 1 Univers 800 mg 7-04 tablet by ity of tablet 00:00: mouth [place] 00 every 8 Medical (eight) Branch hours as needed for Pain (scale 4-6). ibuprofen 0 Yes [id number] 800mg Take 1 Univers 800 mg 7-04 tablet by ity of tablet 00:00: mouth [place] 00 every 8 Medical (eight) Branch hours as needed for Pain (scale 4-6). ibuprofen Yes [id number] 800mg Take 1 Univers 800 mg 7-04 tablet by ity of tablet 00:00: mouth [place] 00 every 8 Medical (eight) Branch hours as needed for Pain (scale 4-6). ibuprofen 2020- No [id number] 800mg Take 1 Univers 800 mg 7-12 21- tablet by ity of tablet 00:00: 00:00 mouth [place] 00 :00 every 8 Medical (eight) Branch hours as needed for Pain (scale 4-6). ibuprofen 2020- No [id number] 800mg Take 1 Univers 800 mg -12 21- tablet by ity of tablet 00:00: 00:00 mouth [place] 00 :00 every 8 Medical (eight) Branch hours as needed for Pain (scale 4-6). acetaminoph 2020- No 4647 1{tbl} Take 1 U nivers en-codeine -12 19-12 tablet by ity of 300-30 mg 00:00: 04:59 mouth [place] tablet 00 :00 every 6 Medical (six) Branch hours as needed for Pain (scale 7-10) for up to 7 days. Indication s: acute pain benzonatate 2020- No 200mg 200 mg, U nivers (TESSALON 3-04 03-04 Oral, ity of PERLES) 05:00: 04:51 ONCE, 1 [place] capsule 200 00 :00 dose, Wed Med ical mg 11/14/20 at Branch 2300, Routine benzonatate Yes [id number] 100mg Take 1 Univers 100 mg 3-03 capsule by ity of capsule 00:00: mouth 3 00 (three) Medical times Branch daily as needed for Cough. benzonatate Yes [id number] 100mg Take 1 Univers 100 mg 3-03 capsule by ity of capsule 00:00: mouth 3 [place] 00 (three) Medical times Branch daily as needed for Cough. benzonatate 2020-0 Yes [id number] 100mg Take 1 Univers 100 mg 3-03 capsule by ity of capsule 00:00: mouth 3 [place] 00 (three) Medical times Branch daily as needed for Cough. benzonatate 0 Yes [id number] 100mg Take 1 Univers 100 mg 3-03 capsule by ity of capsule 00:00: mouth 3 [place] 00 (three) Medical times Branch daily as needed for Cough. benzonatate Yes [id number] 100mg Take 1 Univers 100 mg 3-03 capsule by ity of capsule 00:00: mouth 3 [place] 00 (three) Medical times Branch daily as needed for Cough. benzonatate Yes [id number] 100mg Take 1 Univers 100 mg 3-03 capsule by ity of capsule 00:00: mouth 3 [place] 00 (three) Medical times Branch daily as needed for Cough. benzonatate 2020- No [id number] 100mg Take 1 Univers 100 mg 3-03 09-09 capsule by ity of capsule 00:00: 00:00 mouth 3 [place] 00 :00 (three) Medical times Branch daily as needed for Cough. benzonatate 2020- No [id number] 100mg Take 1 Univers 100 mg 3-03 09-09 capsule by ity of capsule 00:00: 00:00 mouth 3 [place] 00 :00 (three) Medical times Branch daily as needed for Cough. diphenhydrA 2020- No 25mg 25 mg, Uni vers MINE 09-30 Slow IV ity of (BENADRYL) 16:00: 15:17 Push, [place] injection 00 :00 ONCE, 1 Medical 25 mg dose, [place] Branch 09/30/20 at 1000, STAT metoclopram 2020- No 10mg 10 mg, Uni vers jerilyn HCl 09-30 Slow IV ity of (REGLAN) 16:00: 15:17 Push, [place] injection 00 :00 ONCE, 1 Medical 10 mg dose, [place] Branch 09/30/20 at 1000, VASILIY NaCl 0.9% 2020- No 1000mL at 999 Uni vers (NS) bolus 09-30 mL/hr, ity of infusion 15:00: 16:45 1,000 mL, Jim as 1,000 mL 00 :00 IV Medical Infusion, Branch ONCE, 1 dose, [place] 09/30/20 at 0900, VASILIY lisinopriL Yes [id number] 10mg Take 1 Univers 10 mg 1-17 tablet by ity of tablet 00:00: mouth at [place] 00 bedtime. Medical Branch amLODIPine Yes [id number] 10mg Take 1 Univers (NORVASC) 1-17 tablet by ity o f 10 mg 00:00: mouth [place] tablet 00 daily. Medical Branch lisinopriL Yes [id number] 10mg Take 1 Univers 10 mg 1-17 tablet by ity of tablet 00:00: mouth at [place] 00 bedtime. Medical Branch amLODIPine Yes [id number] 10mg Take 1 Univers (NORVASC) 1-17 tablet by ity o f 10 mg 00:00: mouth [place] tablet 00 daily. Medical Branch lisinopriL Yes [id number] 10mg Take 1 Univers 10 mg 1-17 tablet by ity of tablet 00:00: mouth at [place] 00 bedtime. Medical Branch amLODIPine Yes [id number] 10mg Take 1 Univers (NORVASC) 1-17 tablet by ity o f 10 mg 00:00: mouth [place] tablet 00 daily. Medical Branch lisinopriL Yes [id number] 10mg Take 1 Univers 10 mg 1-17 tablet by ity of tablet 00:00: mouth at [place] 00 bedtime. Medical Branch amLODIPine Yes [id number] 10mg Take 1 Univers (NORVASC) 1-17 tablet by ity o f 10 mg 00:00: mouth [place] tablet 00 daily. Medical Branch lisinopriL Yes [id number] 10mg Take 1 Univers 10 mg 1-17 tablet by ity of tablet 00:00: mouth at [place] 00 bedtime. Medical Branch amLODIPine Yes [id number] 10mg Take 1 Univers (NORVASC) 1-17 tablet by ity o f 10 mg 00:00: mouth [place] tablet 00 daily. Medical Branch lisinopriL Yes [id number] 10mg Take 1 Univers 10 mg 1-17 tablet by ity of tablet 00:00: mouth at [place] 00 bedtime. Medical Branch amLODIPine Yes [id number] 10mg Take 1 Univers (NORVASC) 1-17 tablet by ity o f 10 mg 00:00: mouth [place] tablet 00 daily. Medical Branch lisinopriL Yes [id number] 10mg Take 1 Univers 10 mg 1-17 tablet by ity of tablet 00:00: mouth at [place] 00 bedtime. Medical Branch amLODIPine 2021-0 Yes [id number] 10mg Take 1 Univers (NORVASC) 1-17 tablet by ity o f 10 mg 00:00: mouth [place] tablet 00 daily. Medical Branch lisinopriL 2020-0 Yes [id number] 10mg Take 1 Univers 10 mg 1-17 tablet by ity of tablet 00:00: mouth at [place] 00 bedtime. Medical Branch amLODIPine 0 Yes [id number] 10mg Take 1 Univers (NORVASC) 1-17 tablet by ity o f 10 mg 00:00: mouth [place] tablet 00 daily. Medical Branch lisinopriL 0 Yes [id number] 10mg Take 1 Univers 10 mg 1-17 tablet by ity of tablet 00:00: mouth at [place] 00 bedtime. Medical Branch amLODIPine 0 Yes [id number] 10mg Take 1 Univers (NORVASC) 1-17 tablet by ity o f 10 mg 00:00: mouth [place] tablet 00 daily. Medical Branch lisinopriL 0 Yes [id number] 10mg Take 1 Univers 10 mg 1-17 tablet by ity of tablet 00:00: mouth at [place] 00 bedtime. Medical Branch amLODIPine 0 Yes [id number] 10mg Take 1 Univers (NORVASC) 1-17 tablet by ity o f 10 mg 00:00: mouth [place] tablet 00 daily. Medical Branch lisinopriL 0 Yes [id number] 10mg Take 1 Univers 10 mg 1-17 tablet by ity of tablet 00:00: mouth at [place] 00 bedtime. Medical Branch amLODIPine 0 Yes [id number] 10mg Take 1 Univers (NORVASC) 1-17 tablet by ity o f 10 mg 00:00: mouth [place] tablet 00 daily. Medical Branch lisinopriL 0 Yes [id number] 10mg Take 1 Univers 10 mg 1-17 tablet by ity of tablet 00:00: mouth at [place] 00 bedtime. Medical Branch amLODIPine 0 Yes [id number] 10mg Take 1 Univers (NORVASC) 1-17 tablet by ity o f 10 mg 00:00: mouth [place] tablet 00 daily. Medical Branch maalox:diph 2020-1 2020- No 15mL 15 mL, Uni vers enhydrAMINE 0-19 10-19 Oral, ity of :lidocaine 03:30: 03:30 ONCE, 1 [place] 2 % viscous 00 :00 dose, Sun Med ical 1:1:1 07/01/20 Branch ([facility] 2230[facility] VASILIY oral suspension 15 mL sodium 2019-09 Yes 5mL 5 mL, Univers chloride 0-19 Intravenou ity o f (NS) 03:00: s, PRN, [place] injection 5 48 Starting [facility] 07/01/20 at 2200, Until Discontinu ed, Routine, IV line flushing sucralfate 2019-09 2020- No [id number] 1g Take 1 Univers 1 gram 0-18 11-02 tablet by ity of tablet 00:00: 05:59 mouth [place] 00 :00 before Medical meals and Branch at bedtime for 14 days. No known No Univers medications ity [facility] Immunizations Ordered Filled Immunization Date Status Comments [facility] e Immunization Name Name SARS-COV-2 COVID-19 2021-05-07 Completed Unive rsity of PFIZER VACCINE 00:00:00 [facility] SARS-COV-2 COVID-19 2021-05-07 Completed Unive rsity of PFIZER VACCINE 00:00:00 [facility] SARS-COV-2 COVID-19 2021-05-07 Completed Unive rsity of PFIZER VACCINE 00:00:00 [facility] SARS-COV-2 COVID-19 2021-05-07 Completed Unive rsity of PFIZER VACCINE 00:00:00 [facility] SARS-COV-2 COVID-19 2021-05-07 Completed Unive rsity of PFIZER VACCINE 00:00:00 [facility] Vital Signs Vital Name Observation Time Observation Value Comments Source Systolic blood 2021-05-24 06:00:00 135 mm[Hg] Univer sity of pressure [facility] Diastolic blood 2021-05-24 06:00:00 97 mm[Hg] Unive rsity of pressure [facility] Heart rate 2021-05-24 06:00:00 88 /[facility] Respiratory rate 2021-05-24 06:00:00 21 /min [facility] [place] [facility] in 2021-05-24 06:00:00 94 /min [facility] Arterial blood by [facility] Pulse oximetry Branch Body temperature 2021-05-24 01:47:00 37.28 Cindi Univ ersity [facility] [place] [facility] Body height 2021-05-24 01:47:00 195.6 cm Universi ty of [place] [facility] Body weight 2021-05-24 01:47:00 127.461 kg Universi ty of [place] [facility] BMI 2021-05-24 01:47:00 33.32 kg/m2 [facility]i ty [facility] [place] [facility] Systolic blood 2021-05-22 23:36:00 154 mm[Hg] Univer sity of pressure [place] [facility] Diastolic blood 2021-05-22 23:36:00 112 mm[Hg] Unive rsity of pressure [place] [facility] Heart rate 2021-05-22 23:36:00 97 /min Universi ty [facility] [place] [facility] Body temperature 2021-05-22 23:36:00 36 Cindi Univ ers[facility] [place] [facility] Respiratory rate 2021-05-22 23:36:00 19 /min Univ ersity of [place] [facility] Body height 2021-05-22 23:36:00 195.6 cm [facility]i ty [facility] [place] [facility] Body weight 2021-05-22 23:36:00 127.007 kg Universi ty of [place] [facility] BMI 2021-05-22 23:36:00 33.20 kg/m2 Universi ty [facility] [place] [facility] Oxygen saturation in 2021-05-22 23:36:00 96 /min University of Arterial blood by [facility] Pulse oximetry Branch Systolic blood 2021-05-02 00:01:00 157 mm[Hg] Univer sity of pressure [place] [facility] Diastolic blood 2021-05-02 00:01:00 93 mm[Hg] Unive rsity of pressure [place] [facility] Heart rate 2021-05-02 00:01:00 84 /min Universi ty of [place] [facility] Body temperature 2021-05-02 00:01:00 36.56 Cindi Univ ersity of [place] [facility] Respiratory rate 2021-05-02 00:01:00 18 /min Univ ersity of [place] [facility] Body weight 2021-05-02 00:01:00 126.554 kg Universi ty [facility] [place] [facility] BMI 2021-05-02 00:01:00 33.08 kg/m2 Universi ty [facility] [place] [facility] Oxygen saturation in 2021-05-02 00:01:00 97 /min University of Arterial blood by [place] Medi amy Pulse oximetry Branch Systolic blood 2021-04-02 01:01:00 144 mm[Hg] Univer sity of pressure [place] [facility] Diastolic blood 2021-04-02 01:01:00 94 mm[Hg] Unive rsity of pressure [place] [facility] Heart rate 2021-04-02 01:01:00 89 /min Universi ty of [place] [facility] Body temperature 2021-04-02 01:01:00 37.06 Cindi Univ ersity of [place] [facility] Respiratory rate 2021-04-02 01:01:00 18 /min Univ ersity of [place] [facility] Body weight 2021-04-02 01:01:00 129.729 kg Universi ty [facility] [place] [facility] BMI 2021-04-02 01:01:00 33.91 kg/m2 Universi ty [facility] [place] [facility] Oxygen saturation in 2021-04-02 01:01:00 100 /min University of Arterial blood by [facility] Pulse oximetry Branch Systolic blood 2021-04-02 01:01:00 144 mm[Hg] Univer sity of pressure [place] [facility] Diastolic blood 2021-04-02 01:01:00 94 mm[Hg] Unive rsity of pressure [place] [facility] Heart rate 2021-04-02 01:01:00 89 /min Universi ty of [place] [facility] Body temperature 2021-04-02 01:01:00 37.06 Cindi Univ ersity of [place] [facility] Respiratory rate 2021-04-02 01:01:00 18 /min Univ ersity of [place] [facility] Body weight 2021-04-02 01:01:00 129.729 kg Universi ty of [place] [facility] BMI 2021-04-02 01:01:00 33.91 kg/m2 Universi ty of [place] [facility] Oxygen saturation in 2021-04-02 01:01:00 100 /min University of Arterial blood by [facility] amy Pulse oximetry Branch Systolic blood 2021-03-18 03:16:13 140 mm[Hg] Univer sity of pressure [place] [facility] Diastolic blood 2021-03-18 03:16:13 80 mm[Hg] Unive rsity of pressure [place] [facility] Heart rate 2021-03-18 03:16:13 80 /min Universi ty of [place] [facility] Body temperature 2021-03-18 03:16:13 36.67 Cindi Univ ersity of [place] [facility] Respiratory rate 2021-03-18 03:16:13 19 /min Univ ersity of [place] [facility] Oxygen saturation in 2021-03-18 03:16:13 99 /min University of Arterial blood by [facility] Pulse oximetry Branch Body weight 2021-03-18 01:02:00 129.729 kg Universi ty of [place] [facility] BMI 2021-03-18 01:02:00 33.91 kg/m2 [facility]i ty [facility] [place] [facility] Systolic blood 2021-03-18 03:16:13 140 mm[Hg] Univer sity of pressure [place] [facility] Diastolic blood 2021-03-18 03:16:13 80 mm[Hg] Unive rsity of pressure [place] [facility] Heart rate 2021-03-18 03:16:13 80 /min [facility]i ty [facility] [place] [facility] Body temperature 2021-03-18 03:16:13 36.67 Cindi Univ ers[facility] [place] [facility] Respiratory rate 2021-03-18 03:16:13 19 /min Univ ersity of [place] [facility] Oxygen saturation in 2021-03-18 03:16:13 99 /min University of Arterial blood by [facility] Pulse oximetry Branch Body weight 2021-03-18 01:02:00 129.729 kg Universi ty [facility] [place] [facility] BMI 2021-03-18 01:02:00 33.91 kg/m2 Universi ty [facility] [place] [facility] Oxygen saturation in 2020-11-15 04:31:00 97 /min University of Arterial blood by [facility] Pulse oximetry Branch Systolic blood 2020-11-15 03:25:00 173 mm[Hg] Univer sity of pressure [place] [facility] Diastolic blood 2020-11-15 03:25:00 97 mm[Hg] Unive rsity of pressure [place] [facility] Heart rate 2020-11-15 03:25:00 84 /min Universi ty [facility] [place] [facility] Body temperature 2020-11-15 03:25:00 36.67 Cindi Univ ersity [facility] [place] [facility] Respiratory rate 2020-11-15 03:25:00 20 /min Univ ersity of [place] [facility] Body weight 2020-11-15 03:25:00 132.45 kg Universi ty of [place] [facility] BMI 2020-11-15 03:25:00 34.63 kg/m2 Universi ty of [place] [facility] Oxygen saturation in 2020-11-15 04:31:00 97 /min University of Arterial blood by [facility] Pulse oximetry Branch Systolic blood 2020-11-15 03:25:00 173 mm[Hg] Univer sity of pressure [place] [facility] Diastolic blood 2020-11-15 03:25:00 97 mm[Hg] Unive rsity of pressure [place] [facility] Heart rate 2020-11-15 03:25:00 84 /min Universi ty of [place] [facility] Body temperature 2020-11-15 03:25:00 36.67 Cindi Univ ers[facility] [place] [facility] Respiratory rate 2020-11-15 03:25:00 20 /min Univ ersity [facility] [place] [facility] Body weight 2020-11-15 03:25:00 132.45 kg [facility]i ty [facility] [place] [facility] BMI 2020-11-15 03:25:00 34.63 kg/m2 [facility] [place] [facility] Systolic blood 2020-09-30 16:30:00 121 mm[Hg] Univer sity of pressure [place] [facility] Diastolic blood 2020-09-30 16:30:00 66 mm[Hg] Unive rsity of pressure [place] [facility] Heart rate 2020-09-30 16:30:00 72 /min Universi ty of [place] [facility] Respiratory rate 2020-09-30 16:30:00 19 /min Univ ersity of [place] [facility] Oxygen saturation in 2020-09-30 16:30:00 94 /min University of Arterial blood by [facility] Pulse oximetry Branch Body weight 2020-09-30 14:20:00 136.079 kg Universi ty [facility] [place] [facility] BMI 2020-09-30 14:20:00 35.57 kg/m2 [facility]i ty [facility] [place] [facility] Body temperature 2020-09-30 14:10:00 37.06 Cindi Univ ersity [facility] [place] [facility] Systolic blood 2020-09-30 16:30:00 121 mm[Hg] Univer sity of pressure [place] [facility] Diastolic blood 2020-09-30 16:30:00 66 mm[Hg] Unive rsity of pressure [place] [facility] Heart rate 2020-09-30 16:30:00 72 /min Universi ty [facility] [place] [facility] Respiratory rate 2020-09-30 16:30:00 19 /min Univ ersity of [place] [facility] Oxygen saturation in 2020-09-30 16:30:00 94 /min University of Arterial blood by [place] [employer] amy Pulse oximetry Branch Body weight 2020-09-30 14:20:00 136.079 kg [facility]i ty [facility] [place] [facility] BMI 2020-09-30 14:20:00 35.57 kg/m2 [facility] [place] [facility] Body temperature 2020-09-30 14:10:00 37.06 Cindi Univ ers[facility] [place] [facility] Systolic blood 2020-07-02 04:00:00 132 mm[Hg] Univer sity of pressure [place] [facility] Diastolic blood 2020-07-02 04:00:00 84 mm[Hg] Unive rsity of pressure [place] [facility] Heart rate 2020-07-02 04:00:00 89 /min Universi ty [facility] [place] [facility] Oxygen saturation in 2020-07-02 04:00:00 95 /min University of Arterial blood by [facility] Pulse oximetry Branch Body temperature 2020-07-02 02:53:00 36.94 Cindi Univ ers[facility] [place] [facility] Respiratory rate 2020-07-02 02:53:00 18 /min Univ ersity [facility] [place] [facility] Body height 2020-07-02 02:53:00 195.6 cm [facility] [place] [facility] Body weight 2020-07-02 02:53:00 136.079 kg [facility] [place] [facility] BMI 2020-07-02 02:53:00 35.57 kg/m2 [facility] [place] [facility] Systolic blood 2020-07-02 04:00:00 132 mm[Hg] Univer sity of pressure [place] [facility] Diastolic blood 2020-07-02 04:00:00 84 mm[Hg] Unive rsity of pressure [place] [facility] Heart rate 2020-07-02 04:00:00 89 /min [facility]i ty [facility] [place] [facility] Oxygen saturation in 2020-07-02 04:00:00 95 /min University of Arterial blood by [facility] Pulse oximetry Branch Body temperature 2020-07-02 02:53:00 36.94 Cindi Univ [facility] [place] [facility] Respiratory rate 2020-07-02 02:53:00 18 /min [facility] Body height 2020-07-02 02:53:00 195.6 cm [facility] Body weight 2020-07-02 02:53:00 136.079 kg [facility] BMI 2020-07-02 02:53:00 35.57 kg/m2 [facility] Procedures Procedure Date / Time Performed Performing Clinician Meir e CREATINE KINASE 2021-05-24 04:40:00 Felipe Ortega [facility] BASIC METABOLIC PANEL 2021-05-24 04:40:00 Felipe Ortega [facility] (NA, K, CL, CO2, Medical Branch GLUCOSE, BUN, CREATININE, CA) URINALYSIS 2021-05-24 02:14:00 Felipe Ortega [facility] CREATINE KINASE 2021-05-24 01:53:00 Felipe Ortega [facility] TROPONIN I 2021-05-24 01:53:00 Felipe Ortega [facility] COMP. METABOLIC PANEL 2021-05-24 01:53:00 Felipe Ortega [facility] ([id number]) [facility] CBC WITH DIFF 2021-05-24 01:53:00 Felipe Ortega [facility] N-TERMINAL PRO-BNP 2021-05-24 01:53:00 Felipe Ortega [facility] ASSIGNMENT OF BENEFITS 2021-05-23 00:46:04 Doctor Unassigned, No [facility] Name [facility] Branch CONSENT/REFUSAL FOR 2021-05-22 23:31:57 Doctor Unassigned, No Un [facility] [place] DIAGNOSIS AND Name [facility] TREATMENT SARS-COV-2 COVID-19 2021-05-07 16:12:40 [facility],IM Name [facility] (PFIZER) RAPID STREP SCREEN FOR 2021-05-02 00:07:00 Julian Matos [facility] [place] [facility] GROUP A Medical Branch COVID-19 (ID NOW RAPID 2021-05-02 00:07:00 Julian Matos [facility] [place] [facility] TESTING) Medical Branch CONSENT/REFUSAL FOR 2021-05-01 23:56:07 Doctor Unassigned, No Un [facility] [place] DIAGNOSIS AND Name Medical Branch TREATMENT RAPID STREP SCREEN FOR 2021-04-02 01:05:00 Nikhil Mckinley [facility] GROUP A Medical Branch COVID-19 (ID NOW RAPID 2021-04-02 01:05:00 Nikhil Mckinley [facility] TESTING) Medical Branch NOTICE OF PRIVACY 2021-04-02 00:56:18 Doctor Unassigned, No [facility] PRACTICES Name Medical Branch CONSENT/REFUSAL FOR 2021-04-02 00:49:05 Doctor Unassigned, No [facility] [place] DIAGNOSIS AND Name Medical Branch TREATMENT XR WRIST 3+ VW LEFT 2021-03-18 01:19:[address] [facility] URINALYSIS 2021-03-18 01:12:00 Nikhil Mckinley [facility] CONSENT/REFUSAL FOR 2021-03-18 00:56:01 Doctor Unassigned, No [facility] [place] DIAGNOSIS AND Name Medical Branch TREATMENT XR CHEST 1 VW 2020-11-15 03:48:28 Darnell Hsu [facility] CONSENT/REFUSAL FOR 2020-11-15 03:11:27 Doctor Unassigned, No [facility] [place] DIAGNOSIS AND Name Medical [place] TREATMENT CT HEAD WO CONTRAST 2020-09-30 15:00:43 Jessy Siddiqui [facility] XR CHEST 1 VW 2020-09-30 14:37:13 Jessy Siddiqui [facility] LIPASE 2020-09-30 14:25:00 Jessy Siddiqui [facility] TROPONIN I 2020-09-30 14:25:00 Jessy Siddiqui [facility] COMP. METABOLIC PANEL 2020-09-30 14:25:00 Jessy Siddiqui [facility] ([id number]) [facility] CBC WITH DIFF 2020-09-30 14:25:00 Jessy Siddiqui [facility] N-TERMINAL PRO-BNP 2020-09-30 14:25:00 Jessy Siddiqui [facility] NOTICE OF PRIVACY 2020-09-30 13:57:13 Doctor Unassigned, No [facility] Name Medical Branch CONSENT/REFUSAL FOR 2020-09-30 13:55:57 Doctor Unassigned, No [facility] [place] DIAGNOSIS AND Name Medical Branch TREATMENT EKG-12 LEAD 2020-07-02 03:20:42 Felipe Ortega [facility] LIPASE 2020-07-02 03:05:00 Juan Orantes [facility] TROPONIN I 2020-07-02 03:05:00 Felipe Ortega [facility] COMP. METABOLIC PANEL 2020-07-02 03:05:00 Juan Orantes [facility] ([id number]) [facility] CBC WITH DIFF 2020-07-02 03:05:00 Juan Orantes [facility] NOTICE OF PRIVACY 2020-07-02 02:48:43 Doctor Unassigned, No [facility] CONSENT/REFUSAL FOR 2020-07-02 02:46:14 Doctor Unassigned, No [facility] [place] DIAGNOSIS AND Name [facility] Branch TREATMENT Encounters Start End Encounter Admission Attending Care Care Encounter Source Date/Time Date/Time Type Type Clinicians Facility Department ID 2021-07-14 Emergency X [facility] [id number] Univers 03:01:33 ity [facility] 2021-05-23 2021-05-24 Emergency [facility] [id number] Univers 20:42:00 01:42:00 Felipe Krueger [id number] i ty [facility] 4.2.7.2.686 [facility] [phone] [facility] 084 Branch 2021-05-23 2021-05-23 Emergency X SHANNON, [facility] ERT [id number] Univers 20:42:00 20:42:00 [facility] 2021-05-22 [facility] [id number] Univers 18:37:00 21:40:00 Gabriella Krueger 350.1.13.10 ity [facility] 4.2.7.2.686 [facility] [id number] [address] 2021-05-22 2021-05-22 Emergency X [facility] ERT [id number] Univers 18:31:00 18:31:00 ity [facility] 2021-05-07 2021-05-07 Imm/Inj Nurse, Adc Pob Immunization [facility] 1.2.840.114 [id number] Univers 11:11:35 11:11:42 Visit David Clarke 350.1.13 .10 ity [facility] 4.2.7[address] [place], [place] [address]essio [id number] [place] [address] 2021-05-01 2021-05-01 Emergency Mckinley, [facility] 1.2.840.114 [id number] Univers 19:09:00 20:46:00 Nikhil Krueger [id number] i ty of [place] 4.[address] [place] [id number] 2021-05-01 2021-05-01 Emergency X [facility] ERT [id number] Univers 18:53:00 18:53:00 ity [facility] 2021-04-01 2021-04-01 Emergency Mckinley, [facility] 1.2.840.114 [id number] 20:06:00 21:56:00 Nikhilberhane Krueger 350.1.13.10 [place] 4.2.7.2.686 [place] [id number] [facility] 2021-04-01 2021-04-01 Emergency Mckinley, [facility] 1.2.840.114 [id number] Univers 20:06:00 21:56:00 Nikhil [place] [id number] i ty of [place] [address] [place] [id number] 2021-04-01 2021-04-01 Emergency X MCKINLEY, [facility] ERT [id number] Univers 20:06:00 20:06:00 NIKHIL ity [facility] 2021-03-17 2021-03-17 Emergency Mckinley, [facility] 1.2.840.114 [id number] 20:09:00 22:19:00 Nikhil Krueger 350.1.13.10 [place] 4.2.7.2.686 [place] [id number] 084 2021-03-17 2021-03-17 Emergency [facility] 1.2.840.114 [id number] Univers 20:09:00 22:19:00 Nikhil Krueger 350.1.13.10 i ty of [place] 4.2.7.2.686 [facility] [id number] [facility] 084 Branch 2021-03-17 2021-03-17 Emergency X [facility] ERT [id number] Univers 19:56:00 19:56:00 ity of [facility] 2020-11-15 2020-11-15 Telephone PcpKARL [id number] 00:00:00 00:00:00 Patient EVE 350.1.13.10 Does [facility] 4.2.7.2.686 Have A [id number] 019 2020-11-15 2020-11-15 Letter KARL Mar 1.2.840.114 [id number] 00:00:00 00:00:00 (Out) Mirna PRADO 350.1.13.10 HOSPITAL 42.7.2.686 [id number] 2020-11-15 2020-11-15 Letter KARL Mar 1.2.840.114 [id number] Univers 00:00:00 00:00:00 (Out) Mirna HERNANDEZY 350.1.13.10 it y of HOSPITAL 4.2.7.2.686 [place] as [id number] [place] [address] Branch 2020-11-15 2020-11-15 Telephone PcpKARL 1.2.923.116 [id number] Univers 00:00:00 00:00:00 Patient EVE 350.1.13.10 it y of Does [facility] [place]2.[place] Have A [id number] [facility] 019 Branch 2020-11-14 2020-11-14 Emergency [facility] 1.2.500.841 [id number] 21:29:00 22:55:00 Darnell Krueger 350.1.13.10 [place] 4.2.7.2.686 [place] [phone] [facility] 2020-11-14 2020-11-14 Emergency [facility] 1.2.584.096 [id number] Univers 21:29:00 22:55:00 Darnell Krueger 350.1.13.10 i ty of [place] 4.2.7.2.686 [facility] [id number] [place] [address]78394 [place] 2020-09-30 2020-09-30 Emergency [facility] 1.2.840.114 [id number] Univers 08:03:00 10:45:00 Jessy Krueger 350.1.13.10 ity of [place] 4.2.7.2.686 [facility] [id number] [address] 2020-09-30 2020-09-30 Emergency [facility] 1.2.840.114 [id number] 08:03:00 10:45:00 Jessy Krueger 350.1.13.10 [place] 4.2.7.2.686 [place] [id number] [facility] 2020-09-30 2020-09-30 Emergency X [facility] ERT [id number] Univers 07:58:00 07:58:00 ity of [facility] 2020-09-30 2020-09-30 Orders Doctor BARAJAS 1.2.840.114 [id number] Univers 00:00:00 00:00:00 Only UnassignedEVE 350.1.13.10 ity of [place] [facility] 4.2.7.2.686 [place] [phone] [place] [address] Branch 2020-09-30 2020-09-30 Orders Doctor BARAJAS 1.2.840.114 [id number] 00:00:00 00:00:00 Only UnassignedEVE 350.1.13.10 [place] [facility] 4.2.7.2.686 [id number] 2020-07-01 2020-07-01 Emergency [facility] 1.2.840.114 [id number] Univers 21:58:00 23:54:00 Felipe Krueger 350.1.13.10 i ty of [place] 4.2.7.2.686 [facility] [id number] [place] [address] Branch 2020-07-01 2020-07-01 Emergency [facility] 1.2.840.114 [id number] 21:58:00 23:54:00 Felipe Krueger 350.1.13.10 [place] 4.2.7.2.686 [place] [id number] [facility] 2020-07-01 2020-07-01 Emergency X [facility] ERT [id number] Univers 21:58:00 21:58:00 FELIPE hester [facility] Results Test Description Test Time Test Comments Results Result Comments Source CREATINE KINASE 2021-05-24 05:55:54 Test Item Value Reference Range Interpretation Comme nts CK (test code = 2077039664) 3682 U/L 33-194 H Lab Interpretation (test code = 85242-9) Abnormal [facility] [id number] 05:55:54 Test Item Value Reference Range Interpretation Comments CK (test code = 7640612883) 3682 U/L 33-194 H Lab Interpretation (test code = Abnormal 23354-4) [facility]OLIC PANEL (NA, K, CL, CO2, GLUCOSE, BUN, CREATININE, CA)2021-05-24 05:02:27 Test Item Value Reference Range Interpretation Comments NA (test code = 137 mmol/L 135-145 4211340077) K (test code = 3.6 mmol/L 3.5-5.0 6796616944) CL (test code = 105 mmol/L 98-108 6552912731) CO2 TOTAL (test code = 23 mmol/L 23-31 7535955037) AGAP (test code = 2-16 0605349423) BUN (test code = 26 mg/dL 7-23 H 9088053443) GLUCOSE (test code = 95 mg/dL 70-110 5256737828) CREATININE (test code = 1.31 mg/dL 0.60-1.25 H 0642030707) CALCIUM (test code = 8.6 mg/dL 8.6-10.6 8791880175) eGFR (test code = mL/min/1.73m2 8343914708) KRYSTLE (test code = KRYSTLE) Association of Glomerular Filtration Rate (GFR) and Staging of Kidney Disease* + --+ --+ ------+| GFR (mL/min/1.73 m2) ?| With Kidney Damage ?| ?Without Kidney Damage+ --------+ --------+ +| ?>90 ?| ?Stage one ?| ? Normal ?+ ---+ ---+ -------+| ?60-89 ?| ?Stage two ?| ? Decreased GFR ? + --+ --+ ------+| ?30-59 ?| ?Stage three ?| ? Stage three ? + --+ --+ ------+| ?15-29 ?| ?Stage four ? | ? Stage four ?+ ---+ ---+ -------+| ?<15 (or dialysis) ? ?| ?Stage five ? | ? Stage five ?+ ---+ ---+ -------+ *Each stage assumes the associated GFR level has been in effect for at least three months. ?Stages 1 to 5, with or without kidney disease, indicate chronic kidney disease. Notes: Determination of stages one and two (with eGFR >59mL/min/1.73 m2) requires estimation of kidney damage for at least three months as defined by structural or functional abnormalities of the kidney, manifested by either:Pathological abnormalities or Markers of kidney damage (including abnormalities in the composition of the blood or urine or abnormalities in imaging tests). Lab Interpretation Abnormal (test code = 28698-5) [facility] METABOLIC PANEL (NA, K, CL, CO2, GLUCOSE, BUN, CREATININE, CA)2021-05-24 05:02:27 Test Item Value Reference Range Interpretation Comments NA (test code = 137 mmol/L 135-145 5523658977) K (test code = 3.6 mmol/L 3.5-5.0 7093520729) CL (test code = 105 mmol/L 98-108 0610369398) CO2 TOTAL (test code = 23 mmol/L 23-31 3284866201) AGAP (test code = 2-16 4254381146) BUN (test code = 26 mg/dL 7-23 H 7468923177) GLUCOSE (test code = 95 mg/dL 70-110 3496947498) CREATININE (test code = 1.31 mg/dL 0.60-1.25 H 4577043328) CALCIUM (test code = 8.6 mg/dL 8.6-10.6 4672339395) eGFR (test code = mL/min/1.73m2 9370536703) KRYSTLE (test code = KRYSTLE) Association of Glomerular Filtration Rate (GFR) and Staging of Kidney Disease* + --+ --+ ------+| GFR (mL/min/1.73 m2) ?| With Kidney Damage ?| ?Without Kidney Damage+ --------+ --------+ +| ?>90 ?| ?Stage one ?| ? Normal ?+ ---+ ---+ -------+| ?60-89 ?| ?Stage two ?| ? Decreased GFR ? + --+ --+ ------+| ?30-59 ?| ?Stage three ?| ? Stage three ? + --+ --+ ------+| ?15-29 ?| ?Stage four ? | ? Stage four ?+ ---+ ---+ -------+| ?<15 (or dialysis) ? ?| ?Stage five ? | ? Stage five ?+ ---+ ---+ -------+ *Each stage assumes the associated GFR level has been in effect for at least three months. ?Stages 1 to 5, with or without kidney disease, indicate chronic kidney disease. Notes: Determination of stages one and two (with eGFR >59mL/min/1.73 m2) requires estimation of kidney damage for at least three months as defined by structural or functional abnormalities of the kidney, manifested by either:Pathological abnormalities or Markers of kidney damage (including abnormalities in the composition of the blood or urine or abnormalities in imaging tests). Lab Interpretation Abnormal (test code = 78884-7) [facility] [id number] 02:56:10 Test Item Value Reference Interpretation Comments Range TROPONIN I (test 0.004 ng/mL See_Comment [Automated code = 1568515805) message] The system which generated this result transmitted reference range : <=0.034. The reference range was not used to interpret this result as normal/abnormal . KRYSTLE (test code = Reference (Normal) KRYSTLE) Range (defined by the 99th percentile reference limit): <= 0.034 ng/mL Note: Cardiac troponin begins to rise 3-4 hours after the onset of ischemia. Repeat in 4-6 hours if the sample was drawn within 3-4 hours of the onset of the symptom and found normal. Diagnosis of myocardial injury is made with acute changes in cTn concentrations with at least one serial sample above the 99th percentile upper reference limit (URL), taken together with the patient's clinical presentation. Biotin has been reported to cause a negative bias, interpret results relative to patient's use of biotin. Lab Interpretation Normal (test code = 83229-3) [facility] [id number] 02:56:10 Test Item Value Reference Interpretation Comments Range TROPONIN I (test 0.004 ng/mL See_Comment [Automated code = 3527986639) message] The system which generated this result transmitted reference range : <=0.034. The reference range was not used to interpret this result as normal/abnormal . KRYSTLE (test code = Reference (Normal) KRYSTLE) Range (defined by the 99th percentile reference limit): <= 0.034 ng/mL Note: Cardiac troponin begins to rise 3-4 hours after the onset of ischemia. Repeat in 4-6 hours if the sample was drawn within 3-4 hours of the onset of the symptom and found normal. Diagnosis of myocardial injury is made with acute changes in cTn concentrations with at least one serial sample above the 99th percentile upper reference limit (URL), taken together with the patient's clinical presentation. Biotin has been reported to cause a negative bias, interpret results relative to patient's use of biotin. Lab Interpretation Normal (test code = 06459-5) [facility] [id number] 02:41:54 Test Item Value Reference Range Interpretation Comments CK (test code = 1331810003) 4607 U/L 33-194 H Lab Interpretation (test code = Abnormal 67635-7) [id number] 02:41:54 Test Item Value Reference Range Interpretation Comments CK (test code = 4542902389) 4607 U/L 33-194 H Lab Interpretation (test code = Abnormal 19657-7) [facility] [id number] 02:33:28 Test Item Value Reference Range Interpretation Comments NT-proBNP (test code 14 pg/mL See_Comment [Autom ated = 8388842536) message] The system which generated this result transmitted reference range : <=125. The reference range was not used to interpret this result as normal/abnormal . KRYSTLE (test code = KRYSTLE) Biotin has been reported to cause a negative bias, interpret results relative to patient's use of biotin. Lab Interpretation Normal (test code = 76881-7) [facility] [id number] 02:33:28 Test Item Value Reference Range Interpretation Comments NT-proBNP (test code 14 pg/mL See_Comment [Autom ated = 5548307985) message] The system which generated this result transmitted reference range : <=125. The reference range was not used to interpret this result as normal/abnormal . KRYSTLE (test code = KRYSTLE) Biotin has been reported to cause a negative bias, interpret results relative to patient's use of biotin. Lab Interpretation Normal (test code = 92819-8) [facility]2021-09-10 02:29:35 Test Item Value Reference Range Interpretation Comments APPEARANCE (test code = Clear Clear 5740040257) COLOR (test code = Yellow Yellow 1274675611) PH (test code = 4.8-8.0 0394954205) SP GRAVITY (test code = 1.003-1.030 3795150388) GLU U QUAL (test code = Normal Normal 6312656037) BLOOD (test code = Negative Negative 6659961834) KETONES (test code = Negative Negative 6924529642) PROTEIN (test code = Negative Negative 2887-8) UROBILIN (test code = 2.0 mg/dL Normal A 6855057991) BILIRUBIN (test code = Negative Negative 9818816757) NITRITE (test code = Negative Negative 1451788882) LEUK MO (test code = Negative Negative 2313876226) RBC/HPF (test code = See_Comment [Autom ated message] 5409844461) The system [employer] generated this result transmit delvin reference range : 0 - 3 HPF. The refe rence range was not u sed to interpret th is result as normal/abnormal . WBC/HPF (test code = See_Comment [Autom ated message] 2796402591) The system [employer] generated this result transmit delvin reference range : 0 - 5 HPF. The refe rence range was not u sed to interpret th is result as normal/abnormal . BACTERIA (test code = Negative Negative 1652606158) MUCOUS (test code = Slight Negative LPF A 9791750797) SQ EPITH (test code = <1 HPF 4731893066) Lab Interpretation (test Abnormal code = 03957-0) [facility]2021-09-10 02:29:35 Test Item Value Reference Range Interpretation Comments APPEARANCE (test code = Clear Clear 3815736562) COLOR (test code = Yellow Yellow 6317636288) PH (test code = 4.8-8.0 0197144275) SP GRAVITY (test code = 1.003-1.030 4225035116) GLU U QUAL (test code = Normal Normal 0303149649) BLOOD (test code = Negative Negative 7576036435) KETONES (test code = Negative Negative 1329672532) PROTEIN (test code = Negative Negative 2887-8) UROBILIN (test code = 2.0 mg/dL Normal A 3885012421) BILIRUBIN (test code = Negative Negative 6942128088) NITRITE (test code = Negative Negative 4402032033) LEUK MO (test code = Negative Negative 0241728237) RBC/HPF (test code = See_Comment [Autom ated message] 0338031824) The system [employer] generated this result transmit delvin reference range : 0 - 3 HPF. The refe rence range was not u sed to interpret th is result as normal/abnormal . WBC/HPF (test code = See_Comment [Autom ated message] 2253088362) The system [employer] generated this result transmit delvin reference range : 0 - 5 HPF. The refe rence range was not u sed to interpret th is result as normal/abnormal . BACTERIA (test code = Negative Negative 7241064730) MUCOUS (test code = Slight Negative LPF A 9786730029) SQ EPITH (test code = <1 HPF 9270485496) Lab Interpretation (test Abnormal code = 25151-8) [facility]OLIC PANEL ([id number])2021-05-24 02:25:07 Test Item Value Reference Range Interpretation Comments NA (test code = 137 mmol/L 135-145 7489480415) K (test code = 3.1 mmol/L 3.5-5.0 L 5681234378) CL (test code = 102 mmol/L 98-108 6051467396) CO2 TOTAL (test code = 22 mmol/L 23-31 L 0772253173) AGAP (test code = 2-16 4623955879) BUN (test code = 28 mg/dL 7-23 H 1356724517) GLUCOSE (test code = 132 mg/dL 70-110 H 5941289731) CREATININE (test code = 1.77 mg/dL 0.60-1.25 H 5595336217) TOTAL BILI (test code = 1.0 mg/dL 0.1-1.1 8411808631) CALCIUM (test code = 9.4 mg/dL 8.6-10.6 6562482702) T PROTEIN (test code = 9.4 g/dL 6.3-8.2 H 4938966111) ALBUMIN (test code = 5.0 g/dL 3.5-5.0 0737162412) ALK PHOS (test code = 79 U/L 34-122 3125204426) ALTv (test code = 112 U/L 5-50 H 1742-6) AST(SGOT) (test code = 152 U/L 13-40 H 1181036982) eGFR (test code = mL/min/1.73m2 5365648834) KRYSTLE (test code = KRYSTLE) Association of Glomerular Filtration Rate (GFR) and Staging of Kidney Disease* + --+ --+ ------+| GFR (mL/min/1.73 m2) ?| With Kidney Damage ?| ?Without Kidney Damage+ --------+ --------+ +| ?>90 ?| ?Stage one ?| ? Normal ?+ ---+ ---+ -------+| ?60-89 ?| ?Stage two ?| ? Decreased GFR ? + --+ --+ ------+| ?30-59 ?| ?Stage three ?| ? Stage three ? + --+ --+ ------+| ?15-29 ?| ?Stage four ? | ? Stage four ?+ ---+ ---+ -------+| ?<15 (or dialysis) ? ?| ?Stage five ? | ? Stage five ?+ ---+ ---+ -------+ *Each stage assumes the associated GFR level has been in effect for at least three months. ?Stages 1 to 5, with or without kidney disease, indicate chronic kidney disease. Notes: Determination of stages one and two (with eGFR >59mL/min/1.73 m2) requires estimation of kidney damage for at least three months as defined by structural or functional abnormalities of the kidney, manifested by either:Pathological abnormalities or Markers of kidney damage (including abnormalities in the composition of the blood or urine or abnormalities in imaging tests). Lab Interpretation Abnormal (test code = 65342-4) [facility]. METABOLIC PANEL (29038)2021-05-24 02:25:07 Test Item Value Reference Range Interpretation Comments NA (test code = 137 mmol/L 135-145 4741473088) K (test code = 3.1 mmol/L 3.5-5.0 L 6158358765) CL (test code = 102 mmol/L 98-108 9849854876) CO2 TOTAL (test code = 22 mmol/L 23-31 L 9345581777) AGAP (test code = 2-16 8032229855) BUN (test code = 28 mg/dL 7-23 H 3335423716) GLUCOSE (test code = 132 mg/dL 70-110 H 5352681993) CREATININE (test code = 1.77 mg/dL 0.60-1.25 H 8027777296) TOTAL BILI (test code = 1.0 mg/dL 0.1-1.7 9647616563) CALCIUM (test code = 9.4 mg/dL 8.6-10.6 0859619180) T PROTEIN (test code = 9.4 g/dL 6.3-8.2 H 9450715851) ALBUMIN (test code = 5.0 g/dL 3.5-5.0 7231600698) ALK PHOS (test code = 79 U/L 34-122 4344987747) ALTv (test code = 112 U/L 5-50 H 1742-6) AST(SGOT) (test code = 152 U/L 13-40 H 1832380352) eGFR (test code = mL/min/1.73m2 1356012169) KRYSTLE (test code = KRYSTLE) Association of Glomerular Filtration Rate (GFR) and Staging of Kidney Disease* + --+ --+ ------+| GFR (mL/min/1.73 m2) ?| With Kidney Damage ?| ?Without Kidney Damage+ --------+ --------+ +| ?>90 ?| ?Stage one ?| ? Normal ?+ ---+ ---+ -------+| ?60-89 ?| ?Stage two ?| ? Decreased GFR ? + --+ --+ ------+| ?30-59 ?| ?Stage three ?| ? Stage three ? + --+ --+ ------+| ?15-29 ?| ?Stage four ? | ? Stage four ?+ ---+ ---+ -------+| ?<15 (or dialysis) ? ?| ?Stage five ? | ? Stage five ?+ ---+ ---+ -------+ *Each stage assumes the associated GFR level has been in effect for at least three months. ?Stages 1 to 5, with or without kidney disease, indicate chronic kidney disease. Notes: Determination of stages one and two (with eGFR >59mL/min/1.73 m2) requires estimation of kidney damage for at least three months as defined by structural or functional abnormalities of the kidney, manifested by either:Pathological abnormalities or Markers of kidney damage (including abnormalities in the composition of the blood or urine or abnormalities in imaging tests). Lab Interpretation Abnormal (test code = 87169-0) [facility] WITH [id number] 02:03:22 Test Item Value Reference Range Interpretation Comments WBC (test code = See_Comment [Automated 4616-2) message] The sy stem which generated this result transmitted reference range : 4.20 - 10.70 10*3/?L. The reference range was not used to interpret this result as normal/abnormal . RBC (test code = See_Comment [Automated 453-8) message] The sy stem which generated this result transmitted reference range : 4.26 - 5.52 10*6/?L. The reference range was not used to interpret this result as normal/abnormal . HGB (test code = 15.6 g/dL 12.2-16.4 718-7) HCT (test code = 43.7 % 38.4-49.3 4544-3) MCV (test code = 84.7 fL 81.7-95.6 787-2) MCH (test code = 30.2 pg 26.1-32.7 785-6) MCHC (test code = 35.7 g/dL 31.2-35.0 H 786-4) RDW-SD (test code = 39.7 fL 38.5-51.6 76648-9) RDW-CV (test code = 12.7 % 12.1-15.4 788-0) PLT (test code = See_Comment [Automated 777-3) message] The sy stem which generated this result transmitted reference range : 150 - 328 10*3/ ?L. The reference r andrea was not used to interpret this result as normal/abnormal . MPV (test code = 9.7 fL 9.8-13.0 L 34191-1) NRBC/100 WBC (test See_Comment [Automat ed code = 9985441872) message] The system which generated this result transmitted reference range : 0.0 - 10.0 /100 WBCs. The refer ence range was not u sed to interpret th is result as normal/abnormal . NRBC x10^3 (test code <0.01 See_Comment [Auto mated = 2629969757) message] The s ystem which generated this result transmitted reference range : 10*3/?L. The reference range was not used to interpret this result as normal/abnormal . GRAN MAT (NEUT) % 45.9 % (test code = 770-8) IMM GRAN % (test code 0.20 % = 0296523646) LYMPH % (test code = 41.7 % 736-9) MONO % (test code = 11.6 % 5905-5) EOS % (test code = 0.3 % 713-8) BASO % (test code = 0.3 % 706-2) GRAN MAT x10^3(ANC) 3.95 10*3/uL 1.99-6.95 (test code = 9413270992) IMM GRAN x10^3 (test <0.03 0.00-0.06 code = 1338493049) LYMPH x10^3 (test code 3.60 10*3/uL 1.09-3.23 H = 731-0) MONO x10^3 (test code 1.00 10*3/uL 0.36-1.02 = 742-7) EOS x10^3 (test code = 0.03 10*3/uL 0.06-0.53 L 711-2) BASO x10^3 (test code 0.03 10*3/uL 0.01-0.09 = 704-7) Lab Interpretation Abnormal (test code = 73552-7) [facility] WITH [id number] 02:03:22 Test Item Value Reference Range Interpretation Comments WBC (test code = See_Comment [Automated 6690-2) message] The sy stem which generated this result transmitted reference range : 4.20 - 10.70 10*3/?L. The reference range was not used to interpret this result as normal/abnormal . RBC (test code = See_Comment [Automated 789-8) message] The sy stem which generated this result transmitted reference range : 4.26 - 5.52 10*6/?L. The reference range was not used to interpret this result as normal/abnormal . HGB (test code = 15.6 g/dL 12.2-16.4 718-7) HCT (test code = 43.7 % 38.4-49.3 4544-3) MCV (test code = 84.7 fL 81.7-95.6 787-2) MCH (test code = 30.2 pg 26.1-32.7 785-6) MCHC (test code = 35.7 g/dL 31.2-35.0 H 786-4) RDW-SD (test code = 39.7 fL 38.5-51.6 62125-8) RDW-CV (test code = 12.7 % 12.1-15.4 788-0) PLT (test code = See_Comment [Automated 777-3) message] The sy stem which generated this result transmitted reference range : 150 - 328 10*3/ ?L. The reference r andrea was not used to interpret this result as normal/abnormal . MPV (test code = 9.7 fL 9.8-13.0 L 49341-0) NRBC/100 WBC (test See_Comment [Automat ed code = 1417325466) message] The system which generated this result transmitted reference range : 0.0 - 10.0 /100 WBCs. The refer ence range was not u sed to interpret th is result as normal/abnormal . NRBC x10^3 (test code <0.01 See_Comment [Auto mated = 2372557886) message] The s ystem which generated this result transmitted reference range : 10*3/?L. The reference range was not used to interpret this result as normal/abnormal . GRAN MAT (NEUT) % 45.9 % (test code = 770-8) IMM GRAN % (test code 0.20 % = 2740487352) LYMPH % (test code = 41.7 % 736-9) MONO % (test code = 11.6 % 5905-5) EOS % (test code = 0.3 % 713-8) BASO % (test code = 0.3 % 706-2) GRAN MAT x10^3(ANC) 3.95 10*3/uL 1.99-6.95 (test code = 7261527986) IMM GRAN x10^3 (test <0.03 0.00-0.06 code = 3016438689) LYMPH x10^3 (test code 3.60 10*3/uL 1.09-3.23 H = 731-0) MONO x10^3 (test code 1.00 10*3/uL 0.36-1.02 = 742-7) EOS x10^3 (test code = 0.03 10*3/uL 0.06-0.53 L 711-2) BASO x10^3 (test code 0.03 10*3/uL 0.01-0.09 = 704-7) Lab Interpretation Abnormal (test code = 92044-7) [facility]APID [facility]2021-05-02 00:31:00 Test Item Value Reference Range Interpretation Comments SARS-CoV-2 Rapid ID NOW Not Detected Not Detected (test code = 23978-1) KRYSTLE (test code = KRYSTLE) ID NOW COVID-19 Assay is an isothermal nucleic acid amplification test intended for the qualitative detection of nucleic acid from SARS-CoV-2 viral RNA in nasopharyngeal (COMMUNITY ORGANIZATION DIRECTOR) specimens. It is used under Emergency Use Authorization (EUA) by FDA. The limit of detection (LOD) of the assay is 125 Genome Equivalents/mL. A positive result is indicative of the presence of SARS-CoV-2 RNA. ?Clinical correlation with patient history and other diagnostic information is necessary to determine patient infection status. A negative (Not Detected) result does not preclude SARS-CoV-2 infection. In patients with clinical symptoms and other tests that are consistent with SARS-CoV-2 infection, negative results should be treated as presumptive negative and a new specimen should be tested with alternative PCR molecular test. Invalid: Please collect a new specimen for repeat patient testing if clinically indicated. Lab Interpretation Normal (test code = 15655-3) [facility] STREP SCREEN FOR GROUP [id number] 00:25:45 Test Item Value Reference Range Interpretation Comments Streptococcus pyogenes (group A) Negative Negative antigen (test code = 24104-8) Lab Interpretation (test code = Normal 72262-7) [facility] RAPID TESTING[facility]2021-04-02 01:41:42 Test Item Value Reference Range Interpretation Comments SARS-CoV-2 Rapid ID NOW Not Detected Not Detected (test code = 25058-1) KRYSTLE (test code = KRYSTLE) ID NOW COVID-19 Assay is an isothermal nucleic acid amplification test intended for the qualitative detection of nucleic acid from SARS-CoV-2 viral RNA in nasopharyngeal (COMMUNITY ORGANIZATION DIRECTOR) specimens. It is used under Emergency Use Authorization (EUA) by FDA. The limit of detection (LOD) of the assay is 125 Genome Equivalents/mL. A positive result is indicative of the presence of SARS-CoV-2 RNA. ?Clinical correlation with patient history and other diagnostic information is necessary to determine patient infection status. A negative (Not Detected) result does not preclude SARS-CoV-2 infection. In patients with clinical symptoms and other tests that are consistent with SARS-CoV-2 infection, negative results should be treated as presumptive negative and a new specimen should be tested with alternative PCR molecular test. Invalid: Please collect a new specimen for repeat patient testing if clinically indicated. Lab Interpretation Normal (test code = 68667-7) [facility] STREP SCREEN FOR GROUP [id number] 01:39:31 Test Item Value Reference Range Interpretation Comments Streptococcus pyogenes (group A) Negative Negative antigen (test code = 30654-8) Lab Interpretation (test code = Normal 83546-3) [facility] VW [id number] 02:41:03 Impression: No acute osseous abnormality. AFC: [id number] of Report Exam: XR WRIST 3+ VW LEFT, 03/17/2021 8:15 PM. Ordering Physician: NIKHIL MCKINLEY. History: Wrist pain, felt pop 6/29 . Technique: XR WRIST 3+ VW LEFT Comparison: None. Findings: No acute fracture or dislocation. Chronic fracture deformities of the fifthmetacarpal and the distal radius. There are 3 intact K wires overlappingthe distal radius. No dislocation. Mild diffuse soft tissue edema. [facility], Radiant Results Inft User - 03/17/2021 9:42 PM CDT Exam: XR WRIST 3+ VW LEFT, 03/17/2021 8:15 PM.Ordering Physician: NIKHIL MCKINLEY.History: Wrist pain, felt pop 6/29 .Technique: XR WRIST 3+ VW LEFTComparison: None.Findings: No acute fracture or dislocation. Chronic fracture deformities of the fifthmetacarpal and the distal radius. There are 3 intact K wires overlappingthe distal radius.No dislocation. Mild diffuse soft tissue edema.IMPRESSIONImpression: No acute osseous abnormality.AFC: [id number] of Report [facility]ysis[facility] 01:32:01 Test Item Value Reference Range Interpretation Comments APPEARANCE (test code = Clear Clear 2869318951) COLOR (test code = Yellow Yellow 6612235490) PH (test code = 4.8-8.0 3238305757) SP GRAVITY (test code = 1.003-1.030 3546767883) GLU U QUAL (test code = Normal Normal 7850954543) BLOOD (test code = Negative Negative 2596999963) KETONES (test code = Negative Negative 4508182656) PROTEIN (test code = Negative Negative 2887-8) UROBILIN (test code = 2.0 mg/dL Normal A 1269577242) BILIRUBIN (test code = Negative Negative 2769163347) NITRITE (test code = Negative Negative 4572950690) LEUK MO (test code = Negative Negative 2076499545) RBC/HPF (test code = See_Comment [Autom ated message] 1270036947) The system [employer] generated this result transmit delvin reference range : 0 - 3 HPF. The refe rence range was not u sed to interpret th is result as normal/abnormal . WBC/HPF (test code = See_Comment [Autom ated message] 8268945710) The system [employer] generated this result transmit delvin reference range : 0 - 5 HPF. The refe rence range was not u sed to interpret th is result as normal/abnormal . BACTERIA (test code = Few Negative A 6064542118) MUCOUS (test code = Slight Negative LPF A 4700334031) SQ EPITH (test code = <1 HPF 2395431253) Lab Interpretation (test Abnormal code = 30007-4) [facility] [id number] 04:09:05Impression: Mild thickening of the sol of the central airways, possibly reflectinginfectious or inflammatory bronchitis. RL: 460 AFC: [id number] Ordering physician: DARNELL HSU Indication: Cough and congestion Comparison: None Fin dings: Single AP view of the chest. The cardiopericardial silhouette iswithin normal limits. There is mild thickening of the sol of the centralairways. The visualized bony thorax is intact. [facility], Radiant Results Inft User - 11/14/2020 10:10 PM CSTOrdering physician: DARNELL GUERRERONAIndication: Cough and congestionComparison: NoneFindings: Single AP view of the chest. The cardiopericardial silhouette iswithin normal limits. There is mild thickening of the sol of the centralairways. The visualized bony thorax is intact.IMPRESSIONImpression:Mild thickening of the sol of the central airways, possibly reflectinginfectious or inflammatory bronchitis.RL: 460AFC: [id number] signed by MD Man, PhD at 11/14/2020 10:09 PM [facility]cosN-TERMINAL [id number] 15:43:00 Test Item Value Reference Range Interpretation Comments NT-proBNP (test code <11 See_Comment [Autom ated = 5017725455) message] The system which generated this result transmitted reference range : <=125 pg/mL. Th e reference range was not used to interpret this result as normal/abnormal . KRYSTLE (test code = KRYSTLE) Biotin has been reported to cause a negative bias, interpret results relative to patient's use of biotin. Lab Interpretation Normal (test code = 00814-3) [facility] WITH [id number] 15:27:00 Test Item Value Reference Range Interpretation Comments WBC (test code = See_Comment [Automated 1690-2) message] The sy stem which generated this result transmitted reference range : 4.20 - 10.70 10*3/?L. The reference range was not used to interpret this result as normal/abnormal . RBC (test code = See_Comment [Automated 789-8) message] The sy stem which generated this result transmitted reference range : 4.26 - 5.52 10*6/?L. The reference range was not used to interpret this result as normal/abnormal . HGB (test code = 15.9 g/dL 12.2-16.4 718-7) HCT (test code = 45.1 % 38.4-49.3 4544-3) MCV (test code = 86.2 fL 81.7-95.6 787-2) MCH (test code = 30.4 pg 26.1-32.7 785-6) MCHC (test code = 35.3 g/dL 31.2-35 H 786-4) RDW-SD (test code = 37.3 fL 38.5-51.6 L 17856-7) RDW-CV (test code = 11.9 % 12.1-15.4 L 788-0) PLT (test code = See_Comment [Automated 777-3) message] The sy stem which generated this result transmitted reference range : 150 - 328 10*3/ ?L. The reference r andrea was not used to interpret this result as normal/abnormal . MPV (test code = 9.7 fL 9.8-13 L 56549-6) NRBC/100 WBC (test See_Comment [Automat ed code = 2832653725) message] The system which generated this result transmitted reference range : 0.0 - 10.0 /100 WBCs. The refer ence range was not u sed to interpret th is result as normal/abnormal . NRBC x10^3 (test code <0.01 See_Comment [Auto mated = 7689607480) message] The s ystem which generated this result transmitted reference range : 10*3/?L. The reference range was not used to interpret this result as normal/abnormal . GRAN MAT (NEUT) % 29.2 % (test code = 770-8) IMM GRAN % (test code 0.20 % = 7044059727) LYMPH % (test code = 59.0 % 736-9) MONO % (test code = 10.1 % 5905-5) EOS % (test code = 1.1 % 713-8) BASO % (test code = 0.4 % 706-2) GRAN MAT x10^3(ANC) 1.57 10*3/uL 1.99-6.95 L (test code = 4504811800) IMM GRAN x10^3 (test <0.03 0-0.06 code = 3969584437) LYMPH x10^3 (test code 3.17 10*3/uL 1.09-3.23 = 731-0) MONO x10^3 (test code 0.54 10*3/uL 0.36-1.02 = 742-7) EOS x10^3 (test code = 0.06 10*3/uL 0.06-0.53 711-2) BASO x10^3 (test code <0.03 0.01-0.09 = 704-7) Lab Interpretation Abnormal (test code = 20967-0) [facility] [id number] 15:13:32 No acute cardiopulmonary process. Preliminary Report Dictated by Resident: Efraín Alcaraz MD., have reviewed this study and agree withthe above report.PROCEDURE: XR CHEST 1 VW CLINICAL INDICATION: dizzy TECHNIQUE: Frontal chest radiograph was obtained. COMPARISON: None FINDINGS: The lungs are clear. No pleural effusion or pneumothorax is seen. The heart is normal in siz e. No acute bony abnormality is noted. [facility], Radiant Results Inft User - 09/30/2020 9:14 AM CSTPROCEDURE: XR CHEST 1 VWCLINICAL INDICATION: dizzy TECHNIQUE: Frontal chest radiograph was obtained.COMPARISON: NoneFINDINGS:The lungs are clear. No pleural effusion or pneumothorax is seen. The heart is nor mal in size.No acute bony abnormality is noted.IMPRESSIONNo acute cardiopulmonary process.Preliminary Report Dictated by Resident: Luiz Ruiz MD., have reviewed this study and agree withthe above report.[facility]cosTROPONIN [id number] 14:59:00 Test Item Value Reference Range Interpretation Comments TROPONIN I (test <0.012 See_Comment [Automated code = 9006823734) message] The system which generated this result transmitted reference range : <=0.034 ng/mL. The reference range was not used to interpr et this result as normal/abnormal . KRYSTLE (test code = Equal or Less than KRYSTLE) 0.034 ng/ml---Normal ?Note: Cardiac troponin begins to rise 3-4 hours after the onset of ischemia. Repeat in 4-6 hours if the sample was drawn within 3-4 hours of the onset of the symptom and found normal. Between 0.035 and 0.120 ng/mL--- Borderline. Questionable myocardial injury or necrosis ? ?Note: Serial measurement may be necessary to confirm or exclude the diagnosis of myocardial injury or necrosis; Clinical correlation (symptoms, EKGs, imaging studies, and others) required; Repeat in 4-6 hours if clinically indicated. ? Equal or Higher than 0.121 ng/mL---Abnormal. Myocardial Injury or Necrosis Likely ? Biotin has been reported to cause a negative bias, interpret results relative to patient's use of biotin. ? Lab Interpretation Normal (test code = 14641-6) [facility]COMP. METABOLIC PANEL ([id number])2020-09-30 14:59:00 Test Item Value Reference Range Interpretation Comments NA (test code = 139 mmol/L 135-145 1030831073) K (test code = 3.8 mmol/L 3.5-5 6188838687) CL (test code = 103 mmol/L 98-108 4544329049) CO2 TOTAL (test code = 26 mmol/L 23-31 0827108822) AGAP (test code = 2-16 8733081521) BUN (test code = 11 mg/dL 7-23 4329219557) GLUCOSE (test code = 163 mg/dL 70-110 H 2491103963) CREATININE (test code = 0.85 mg/dL 0.6-1.25 3633752507) TOTAL BILI (test code = 0.6 mg/dL 0.1-1.0 9880847768) CALCIUM (test code = 9.0 mg/dL 8.6-10.6 3305808212) T PROTEIN (test code = 8.0 g/dL 6.3-8.2 2369131842) ALBUMIN (test code = 4.4 g/dL 3.5-5 6235460182) ALK PHOS (test code = 75 U/L 34-122 8825413099) ALTv (test code = 61 U/L 5-50 H 1742-6) AST(SGOT) (test code = 54 U/L 13-40 H 3601710900) eGFR Calculation mL/min/1.73m2 (Non-) (test code = 5112820749) eGFR Calculation mL/min/1.73m2 () (test code = 2232690263) KRYSTLE (test code = KRYSTLE) Association of Glomerular Filtration Rate (GFR) and Staging of Kidney Disease* + --+ --+ ------+| GFR (mL/min/1.73 m2) ?| With Kidney Damage ?| ?Without Kidney Damage+ --------+ --------+ +| ?>90 ?| ?Stage one ?| ? Normal ?+ ---+ ---+ -------+| ?60-89 ?| ?Stage two ?| ? Decreased GFR ? + --+ --+ ------+| ?30-59 ?| ?Stage three ?| ? Stage three ? + --+ --+ ------+| ?15-29 ?| ?Stage four ? | ? Stage four ?+ ---+ ---+ -------+| ?<15 (or dialysis) ? ?| ?Stage five ? | ? Stage five ?+ ---+ ---+ -------+ *Each stage assumes the associated GFR level has been in effect for at least three months. ?Stages 1 to 5, with or without kidney disease, indicate chronic kidney disease. Notes: Determination of stages one and two (with eGFR >59mL/min/1.73 m2) requires estimation of kidney damage for at least three months as defined by structural or functional abnormalities of the kidney, manifested by either:Pathological abnormalities or Markers of kidney damage (including abnormalities in the composition of the blood or urine or abnormalities in imaging tests). Lab Interpretation Abnormal (test code = 04311-7) [facility]cosLIPASE, [id number] 14:59:00 Test Item Value Reference Range Interpretation Comments LIPASE (test code = 1190460830) 116 U/L 0-220 Lab Interpretation (test code = Normal 19642-6) [facility]cosTroponin [id number] 04:30:00 Test Item Value Reference Range Interpretation Comments TROPONIN I (test <0.012 See_Comment [Automated code = 3599057170) message] The system which generated this result transmitted reference range : <=0.034 ng/mL. The reference range was not used to interpr et this result as normal/abnormal . KRYSTLE (test code = Equal or Less than KRYSTLE) 0.034 ng/ml---Normal ?Note: Cardiac troponin begins to rise 3-4 hours after the onset of ischemia. Repeat in 4-6 hours if the sample was drawn within 3-4 hours of the onset of the symptom and found normal. Between 0.035 and 0.120 ng/mL--- Borderline. Questionable myocardial injury or necrosis ? ?Note: Serial measurement may be necessary to confirm or exclude the diagnosis of myocardial injury or necrosis; Clinical correlation (symptoms, EKGs, imaging studies, and others) required; Repeat in 4-6 hours if clinically indicated. ? Equal or Higher than 0.121 ng/mL---Abnormal. Myocardial Injury or Necrosis Likely ? Biotin has been reported to cause a negative bias, interpret results relative to patient's use of biotin. ? Lab Interpretation Normal (test code = 73349-8) [facility]cosComplete Metabolic [id number] 03:24:00 Test Item Value Reference Range Interpretation Comments NA (test code = 137 mmol/L 135-145 8968910466) K (test code = 4.7 mmol/L 3.5-5 2063030154) CL (test code = 101 mmol/L 98-108 2141393351) CO2 TOTAL (test code = 27 mmol/L 23-31 2496790275) AGAP (test code = 2-16 3878653101) BUN (test code = 16 mg/dL 7-23 5847212230) GLUCOSE (test code = 226 mg/dL 70-110 H 5766328722) CREATININE (test code = 1.13 mg/dL 0.6-1.25 5119992539) TOTAL BILI (test code = 0.7 mg/dL 0.1-1.8 8564723092) CALCIUM (test code = 9.3 mg/dL 8.6-10.6 0286437576) T PROTEIN (test code = 7.8 g/dL 6.3-8.2 3915796622) ALBUMIN (test code = 3.9 g/dL 3.5-5 7490097497) ALK PHOS (test code = 79 U/L 34-122 6064149979) ALTv (test code = 62 U/L 5-50 H 1742-6) AST(SGOT) (test code = 49 U/L 13-40 H 4134438734) eGFR Calculation mL/min/1.73m2 (Non-) (test code = 5264970279) eGFR Calculation mL/min/1.73m2 () (test code = 9631868444) KRYSTLE (test code = KRYSTLE) Association of Glomerular Filtration Rate (GFR) and Staging of Kidney Disease* + --+ --+ ------+| GFR (mL/min/1.73 m2) ?| With Kidney Damage ?| ?Without Kidney Damage+ --------+ --------+ +| ?>90 ?| ?Stage one ?| ? Normal ?+ ---+ ---+ -------+| ?60-89 ?| ?Stage two ?| ? Decreased GFR ? + --+ --+ ------+| ?30-59 ?| ?Stage three ?| ? Stage three ? + --+ --+ ------+| ?15-29 ?| ?Stage four ? | ? Stage four ?+ ---+ ---+ -------+| ?<15 (or dialysis) ? ?| ?Stage five ? | ? Stage five ?+ ---+ ---+ -------+ *Each stage assumes the associated GFR level has been in effect for at least three months. ?Stages 1 to 5, with or without kidney disease, indicate chronic kidney disease. Notes: Determination of stages one and two (with eGFR >59mL/min/1.73 m2) requires estimation of kidney damage for at least three months as defined by structural or functional abnormalities of the kidney, manifested by either:Pathological abnormalities or Markers of kidney damage (including abnormalities in the composition of the blood or urine or abnormalities in imaging tests). Lab Interpretation Abnormal (test code = 09468-8) [facility]cosLip[facility], [id number] 03:23:00 Test Item Value Reference Range Interpretation Comments LIPASE (test code = 9645098718) 317 U/L 0-220 H Lab Interpretation (test code = Abnormal 37825-4) [facility]cosCB with [id number] 03:21:00 Test Item Value Reference Range Interpretation Comments WBC (test code = See_Comment [Automated 7725-2) message] The sy stem which generated this result transmitted reference range : 4.20 - 10.70 10*3/?L. The reference range was not used to interpret this result as normal/abnormal . RBC (test code = See_Comment [Automated 672-4) message] The sy stem which generated this result transmitted reference range : 4.26 - 5.52 10*6/?L. The reference range was not used to interpret this result as normal/abnormal . HGB (test code = 15.3 g/dL 12.2-16.4 718-7) HCT (test code = 42.9 % 38.4-49.3 4544-3) MCV (test code = 84.8 fL 81.7-95.6 787-2) MCH (test code = 30.2 pg 26.1-32.7 785-6) MCHC (test code = 35.7 g/dL 31.2-35 H 786-4) RDW-SD (test code = 37.9 fL 38.5-51.6 L 30902-2) RDW-CV (test code = 12.4 % 12.1-15.4 788-0) PLT (test code = See_Comment [Automated 777-3) message] The sy stem which generated this result transmitted reference range : 150 - 328 10*3/ ?L. The reference r andrea was not used to interpret this result as normal/abnormal . MPV (test code = 9.7 fL 9.8-13 L 55897-2) NRBC/100 WBC (test See_Comment [Automat ed code = 3348026352) message] The system which generated this result transmitted reference range : 0.0 - 10.0 /100 WBCs. The refer ence range was not u sed to interpret th is result as normal/abnormal . NRBC x10^3 (test code <0.01 See_Comment [Auto mated = 1227557183) message] The s ystem which generated this result transmitted reference range : 10*3/?L. The reference range was not used to interpret this result as normal/abnormal . GRAN MAT (NEUT) % 36.7 % (test code = 770-8) IMM GRAN % (test code 0.10 % = 7928685309) LYMPH % (test code = 50.9 % 736-9) MONO % (test code = 11.1 % 5905-5) EOS % (test code = 0.8 % 713-8) BASO % (test code = 0.4 % 706-2) GRAN MAT x10^3(ANC) 2.59 10*3/uL 1.99-6.95 (test code = 1842634448) IMM GRAN x10^3 (test <0.03 0-0.06 code = 4653895520) LYMPH x10^3 (test code 3.61 10*3/uL 1.09-3.23 H = 731-0) MONO x10^3 (test code 0.79 10*3/uL 0.36-1.02 = 742-7) EOS x10^3 (test code = 0.06 10*3/uL 0.06-0.53 711-2) BASO x10^3 (test code 0.03 10*3/uL 0.01-0.09 = 704-7) Lab Interpretation Abnormal (test code = 87912-3) [facility]"
[2021-08-19] MEDS ORDERED: NA CHLORIDE 0.9% 500 ML ONE (22:54)
[2021-08-19 23:01] LABS: Absolute Lymphocytes (CBC) 3.4 K/uL (0.7-4.9); Basophils % 0.5 % (0-1.3); Hematocrit 43.2 % (39.6-49.0); Lymphocytes % 52.7 % (15.3-44.8); MPV 7.5 fL (7.6-11.3); RBC Red Blood Cell Count 4.93 M/uL (4.33-5.43)
[2021-08-19 23:04] LABS: Protime INR 1.07
[2021-08-19 23:22] LABS: ALT/SGPT 61 U/L (12-78); AST/SGOT 33 U/L (15-37); Albumin 3.4 g/dL (3.4-5.0); Alkaline Phosphatase 63 U/L (45-117); BUN Blood Urea Nitrogen 8 mg/dL (7-18); Bicarbonate 28 mmol/L (21-32); Bilirubin Direct 0.1 mg/dL (0-0.2); Bilirubin Total 0.5 mg/dL (0.2-1.0); Glucose Level 127 mg/dL (74-106); Magnesium 1.9 mg/dL (1.8-2.4); NT PRO-BNP 10 pg/mL (<125); Potassium 3.5 mmol/L (3.5-5.1); Protein, Total 7.7 g/dL (6.4-8.2); Sodium Level 143 mmol/L (136-145); Troponin (Emerg Dept Use Only) < 0.02 ng/mL (0.0-0.045)
[2021-08-19 23:39] LABS: SARS-COV-2 RT PCR NEGATIVE (NEGATIVE)
[2021-08-19 23:41] LABS: Blood Morphology Comment NOT SEEN (NOT SEEN); Platelet Estimate ADEQ
--- NOTE | 2021-08-20 01:23 | EDPHYS ---
Physician Documentation [facility] Name: Noah Putnam Age: 50 yrs Sex: Male : 1970 Arrival Date: 08/19/2021 Time: 22:07 Bed 20 Private MD: ED Physician Parish Falk HPI: 08/19 22:35 This 50 yrs old Black Male presents to ER via Ambulatory with complaints of Cough, pkl Weakness, Chest Pain, Back Pain. 22:35 The patient or guardian reports chest pain that is located primarily in the substernal pkl area. Onset: 3 day(s) ago. The pain does not radiate. Associated signs and symptoms: Pertinent positives: cough, body aches , sorethroat. The chest pain is described as dull. - Immunization history:: Client reports receiving the 1st dose of the Covid vaccine. ROS: 22:35 Eyes: Negative for injury, pain, redness, and discharge. pkl 22:35 ENT: Positive for sore throat. 22:35 Neck: Negative for stiffness. 22:35 Cardiovascular: Positive for chest pain. 22:35 Respiratory: Positive for cough, with clear sputum. 22:35 Abdomen/GI: Negative for abdominal pain, nausea, vomiting, and diarrhea. 22:35 Back: Negative for acute changes. 22:35 : Negative for urinary symptoms. 22:35 MS/extremity: Negative for acute changes. 22:35 Skin: Negative for rash. 22:35 Neuro: Negative for altered mental status, loss of consciousness. Exam: 22:35 Head/Face: Normocephalic, atraumatic. Eyes: Pupils equal round and reactive to light, pkl extra-ocular motions intact. Lids and lashes normal. Conjunctiva and sclera are non-icteric and not injected. Cornea within normal limits. Periorbital areas with no swelling, redness, or edema. 22:35 ENT: Posterior pharynx: erythema, that is mild. 22:35 Neck: Exam negative for nuchal rigidity. 22:35 Chest/axilla: Exam negative for acute changes. 22:35 Cardiovascular: Rate: normal, Rhythm: regular. 22:35 Respiratory: the patient does not display signs of respiratory distress, Respirations: normal, Breath sounds: are clear throughout. 22:35 Abdomen/GI: Bowel sounds: normal, Palpation: abdomen is soft and non-tender, in all quadrants. 22:35 Back: Exam negative for acute changes. 22:35 : Exam negative for acute changes. 22:35 Musculoskeletal/extremity: Exam is negative for acute changes. 22:35 Skin: Exam negative for rash. 22:35 Neuro: Orientation: is normal, Mentation: is normal, Cranial nerves: grossly normal, Motor: is normal. Vital Signs: 22:12 BP 132 / 77; Pulse 79; Resp 20; Temp 97.8; Pulse Ox 98% on R/A; Weight 126.55 kg; da3 Height 6 ft. 5 in. (195.58 cm); 23:19 BP 110 / 68; Pulse 72; Resp 14 S; Pulse Ox 98% on R/A; as6 08/20 00:12 BP 129 / 84; Pulse 67; Resp 21 S; Pulse Ox 98% on R/A; as6 01:14 BP 112 / 72; Pulse 71; Resp 17 S; Pulse Ox 96% on R/A; as6 08/19 22:12 Body Mass Index 33.08 (126.55 kg, 195.58 cm) da3 MDM: 08/19 22:26 Patient medically screened. pkl 08/20 01:19 Data reviewed: vital signs, nurses notes, lab test result(s), EKG, radiologic studies, pkl plain films. ED course: Patient feeling better. Advised to follow up with Triage Licensed Practical Nurse in 2 to 3 days for further evaluations. To return if necessary. Patient understood instructions. 08/19 22:32 Order name: Basic Metabolic Panel; Complete Time: 23:23 pkl 08/19 22:32 Order name: CBC with Diff pkl 08/19 22:32 Order name: LFT's; Complete Time: 23:23 pkl 08/19 22:32 Order name: Magnesium; Complete Time: 23:23 pkl 08/19 22:32 Order name: NT PRO-BNP; Complete Time: 23:23 pkl 08/19 22:32 Order name: PT-INR; Complete Time: 23:23 pkl 08/19 22:32 Order name: Troponin (emerg Dept Use Only); Complete Time: 23:23 pkl 08/19 22:32 Order name: XRAY Chest (1 view) pkl 08/19 22:34 Order name: COVID-19/FLU A+B (Document "Date of Onset" if Symptomatic); Complete Time: pkl 23:40 08/19 22:34 Order name: Strep; Complete Time: 00:42 pkl 08/19 23:05 Order name: Manual Differential EDMS 08/19 23:42 Order name: Slides for Pathologist Review EDMS 08/19 23:57 Order name: Troponin (emerg Dept Use Only); Complete Time: 01:19 pkl 08/20 00:42 Order name: Throat Culture EDMS 08/19 22:32 Order name: EKG; Complete Time: 22:33 pkl 08/19 22:32 Order name: Cardiac monitoring; Complete Time: 23:03 pkl 08/19 22:32 Order name: EKG - Nurse/Tech; Complete Time: 23:03 pkl 08/19 22:32 Order name: IV Saline Lock; Complete Time: 23:03 pkl 08/19 22:32 Order name: Labs collected and sent; Complete Time: 23:03 pkl 08/19 22:32 Order name: O2 Per Protocol; Complete Time: 23:03 pkl 08/19 22:32 Order name: O2 Sat Monitoring; Complete Time: 23:03 pkl 08/19 23:57 Order name: EKG; Complete Time: 23:58 pkl Administered Medications: 08/19 23:02 Drug: NS 0.9% 1000 ml Route: IV; Rate: 125 ml/hr; Site: right antecubital; as6 07 01:32 Follow up: Response: No adverse reaction; IV Status: Completed infusion; IV Intake: as6 500ml Disposition Summary: 08/20/21 01:22 Discharge Ordered Location: Home pkl Problem: new pkl Symptoms: have improved pkl Condition: Stable pkl Diagnosis - Chest pain pkl - Chest pain. Upper respiratory infection pkl Followup: pkl - With: Fidel Villalta MD - When: 2 - 3 days - Reason: Re-evaluation by your physician Discharge Instructions: - Discharge Summary Sheet pkl Forms: - Work release form pkl - Medication Reconciliation Form pkl - Thank You Letter pkl - Antibiotic Education pkl - Prescription Opioid Use pkl Signatures: Dispatcher [employer] EDParish Solis MD MD pkl Hoang Ballesteros RN RN da3 [place], [place], RN RN as6
--- NOTE | 2021-08-20 01:23 | ER ---
Nurse's Notes [facility] Name: Noah Putnam Age: 50 yrs Sex: Male : 1970 Arrival Date: 08/19/2021 Time: 22:07 Bed 20 Private MD: Diagnosis: Chest pain;Chest pain. Upper respiratory infection Presentation: 08/19 22:12 Chief complaint: Patient states: Body pain , cough weakness. Coronavirus screen: da3 Vaccine status: Patient reports receiving the 1st dose of the Covid vaccine. Ebola Screen: No symptoms or risks identified at this time. Risk Assessment: Do you want to hurt yourself or someone else? Patient reports no desire to harm self or others. Onset of symptoms was August 19, 2021 at 17:00. 22:12 Method Of Arrival: Ambulatory da3 22:12 Acuity: BREEZY 4 da3 23:23 Initial Sepsis Screen: Does the patient meet any 2 criteria? No. Patient's initial as6 sepsis screen is negative. Does the patient have a suspected source of infection? No. Patient's initial sepsis screen is negative. Triage Assessment: 22:17 The onset of the patients symptoms was less than three hours ago. General: Appears in da3 no apparent distress. Behavior is calm, cooperative, appropriate for age. - Immunization history:: Client reports receiving the 1st dose of the Covid vaccine. Screenin:23 Abuse screen: Denies threats or abuse. Nutritional screening: No deficits noted. as6 Tuberculosis screening: No symptoms or risk factors identified. Fall Risk None identified. Assessment: 22:40 General: Appears in no apparent distress. Behavior is calm, cooperative. Pain: as6 Complains of pain in throat. Neuro: Level of Consciousness is awake, alert, obeys commands, Oriented to person, place, time, situation, Reports headache. Cardiovascular: Denies chest pain, Capillary refill < 3 seconds Patient's skin is warm and dry. Respiratory: Reports cough that is Airway is patent Trachea midline Respiratory effort is even, unlabored, Respiratory pattern is regular, symmetrical. EENT: Throat is reddened Reports sore throat . Derm: Skin is intact, is healthy with good turgor. Vital Signs: 22:12 BP 132 / 77; Pulse 79; Resp 20; Temp 97.8; Pulse Ox 98% on R/A; Weight 126.55 kg; da3 Height 6 ft. 5 in. (195.58 cm); 23:19 BP 110 / 68; Pulse 72; Resp 14 S; Pulse Ox 98% on R/A; as6 1207 00:12 BP 129 / 84; Pulse 67; Resp 21 S; Pulse Ox 98% on R/A; as6 01:14 BP 112 / 72; Pulse 71; Resp 17 S; Pulse Ox 96% on R/A; as6 08/19 22:12 Body Mass Index 33.08 (126.55 kg, 195.58 cm) da3 ED Course: 08/19 22:07 Patient arrived in ED. as 22:16 Triage completed. da3 22:26 Parish Falk MD is Attending Physician. pkl 22:36 Reza Muir, LINUS is Primary Nurse. as6 22:36 Arm band placed on. as6 22:57 XRAY Chest (1 view) In Process Unspecified. EDMS 23:23 Placed in gown. Bed in low position. Call light in reach. Side rails up X2. Cardiac as6 monitor on. Pulse ox on. NIBP on. Warm blanket given. 08/20 01:21 Fidel Villalta MD is Referral Physician. pkl 01:32 No provider procedures requiring assistance completed. IV discontinued, intact, as6 bleeding controlled, No redness/swelling at site. Pressure dressing applied. Administered Medications: 08/19 23:02 Drug: NS 0.9% 1000 ml Route: IV; Rate: 125 ml/hr; Site: right antecubital; as6 12 01:32 Follow up: Response: No adverse reaction; IV Status: Completed infusion; IV Intake: as6 500ml Intake: 01:32 IV: 500ml; Total: 500ml. as6 Outcome: 01:22 Discharge ordered by . pkl 01:32 Discharged to home ambulatory. as6 01:32 Condition: stable 01:32 Discharge instructions given to patient, Instructed on discharge instructions, follow up and referral plans. Demonstrated understanding of instructions, follow-up care. 01:33 Patient left the ED. as6 Signatures: Dispatcher [employer] EDMS Parish Falk MD MD pkNataly Mccullough David RN RN da3 Reza Muir, LINUS RN as6
[2021-08-20 01:38] VITALS: TEMP 97.8
[2021-08-20 01:42] VITALS: BP 112/72; O2SAT 96
--- NOTE | 2021-08-20 08:29 | RAD REPORT ---
EXAM DESCRIPTION: RAD - Chest Single View - 08/19/2021 10:56 pm CLINICAL HISTORY: Cough;Chest pain COMPARISON: No comparisons FINDINGS: Lines: None. Lungs: No evidence of edema or pneumonia. Pleural: No significant pleural effusions or pneumothorax. Cardiac: The heart size is within normal limits. Bones: No acute fractures. Other: IMPRESSION: No acute cardiopulmonary disease.
--- NOTE | 2021-08-20 13:03 | EKG ---
Test Date: 2021-08-19 Test Time: 22:58:43 Data Base Administrator: MEASUREMENT RESULTS: Intervals: Rate: 70 NC: 178 QRSD: 80 QT: 396 QTc: 427 [place]: P: 50 NC: 178 QRS: 24 T: 12 INTERPRETIVE STATEMENTS: Normal sinus rhythm Normal ECG No previous ECG available for comparison Electronically Signed On 08-20-21 13:02:29 CHIEF ENGINEER'S HELPER by Fidel Villalta
--- NOTE | 2021-08-20 13:03 | EKG ---
Test Date: 2021-08-20 Test Time: 00:38:55 Exchange Clerk: MEASUREMENT RESULTS: Intervals: Rate: 66 NE: 166 QRSD: 82 QT: 406 QTc: 425 [place]: P: 17 NE: 166 QRS: 30 T: 14 INTERPRETIVE STATEMENTS: Normal sinus rhythm Normal ECG Compared to ECG 08/19/2021 22:58:43 No significant changes Electronically Signed On 08-20-21 13:02:28 MILLWRIGHT INSTRUCTOR by Fidel Villalta
== END 2021-08-20 01:33 | disposition home or self-care (01) ==
LOC: ER 22:05
DX: J06.9 Acute upper respiratory infection, unspecified (principal); Z20.822 Contact with and (suspected) exposure to COVID-19
CPT/HCPCS: 96361; 93005 ×2; 87070; 85025; 80048; 36415; 83735; 85610; 80076; 87081; 84484 ×2; 83880; 0240U; 71045; 96360; 99284; J7040

== ENCOUNTER 2021-10-08 08:29 | Emergency (ER) | payer OTHER ==
--- OUTSIDE RECORDS SUMMARY | 2021-10-08 08:34 | XMS REPORT | Continuity of Care Document ---
:1970 Author Organization [facility] t Address [address] [place] [address] Care Team Providers Name Role Phone Pcp, [...] rs active active ity of problems problems [facility] Allergies, Adverse Reactions, Alerts Allergy Allergy Status Severity Reaction(s) Onset Inactive Treating Comm ents Source Name Type Date Date Clinician NO KNOWN Drug Active Univers ALLERGIE Class ity of S [facility] Social History Social Habit Start Date Stop Date Quantity Comments Source Exposure to Not sure [facility] SARS-CoV-2 (event) Medica l Branch Sex Ass[birth year] At [birth year] [facility] 00:00:00 00:00:00 Medical Branch Smoking Status Start Date Stop Date Source Unknown if ever smoked [facility] Medical Branch Medications Ordered Filled Start Stop Current Ordering Indication Dosage Frequency Signature Comments Components Source Medication Medication Date Date Medication? Clinician (SIG) Name Name NaCl 0.9% 2021-0 2021- No 1000mL at 999 Uni vers (NS) bolus 9-10 09-10 mL/hr, ity of infusion 03:45: 05:00 1,000 mL, Jim as 1,000 mL 00 :00 IV Medical Piggyback, Branch ONCE, 1 dose, Carrie 05/23/21 at 2245, STAT NaCl 0.9% 1-0 2021- No 1000mL at 999 Uni vers (NS) bolus 9-10 09-10 mL/hr, ity of infusion 03:45: 05:00 1,000 mL, Jim as 1,000 mL 00 :00 IV Medical Piggyback, Branch ONCE, 1 dose, Carrie 05/23/21 at 2245, STAT NaCl 0.9% 1-0 2021- No 1000mL at 999 Uni vers (NS) bolus 9-10 09-10 mL/hr, ity of infusion 03:00: 03:00 1,000 mL, Jim as 1,000 mL 00 :00 IV Medical Piggyback, Branch ONCE, 1 dose, Carrie 05/23/21 at 2200, STAT NaCl 0.9% 1-0 2021- No 1000mL at 999 Uni vers (NS) bolus 9-10 09-10 mL/hr, ity of infusion 03:00: 03:00 1,000 mL, Jim as 1,000 mL 00 :00 IV Medical Piggyback, Branch ONCE, 1 dose, Carrie 05/23/21 at 2200, STAT NaCl 0.9% 2020-0 2021- No 500mL at 999 Univ ers (NS) bolus 9-09 09-09 mL/hr, 500 it y of infusion 03:15: 15:14 mL, IV [place] 500 mL 00 :00 Piggyback, Medical ONCE, 1 Branch dose, 05/22/21 at 2215, STAT NaCl 0.9% 2021-0 2021- No 500mL at 999 Univ ers (NS) bolus [...] Restricted medication : EMERGENCY ROOM, ibuprofen Yes [id number] 800mg Take 1 Univers 800 mg 7-04 tablet by ity of tablet 00:00: mouth [place] 00 every 8 Medical (eight) Branch hours as needed for Pain (scale 4-6). ibuprofen Yes [id number] 800mg Take 1 Univers 800 mg 7-04 tablet by ity of tablet 00:00: mouth [place] 00 every 8 Medical (eight) Branch hours as needed for Pain (scale 4-6). ibuprofen Yes [id number] 800mg Take 1 Univers 800 mg 7-04 tablet by ity of tablet 00:00: mouth [place] 00 every 8 Medical (eight) Branch hours as needed for Pain (scale 4-6). ibuprofen Yes [id number] 800mg Take 1 Univers 800 mg 7-04 tablet by ity of tablet 00:00: mouth [place] 00 every 8 Medical (eight) Branch hours as needed for Pain (scale 4-6). ibuprofen Yes [id number] 800mg Take 1 Univers 800 mg 7-04 tablet by ity of tablet 00:00: mouth [place] 00 every 8 Medical (eight) Branch hours as needed for Pain (scale 4-6). ibuprofen Yes [id number] 800mg Take 1 Univers 800 mg 7-04 tablet by ity of tablet 00:00: mouth [place] 00 every 8 Medical (eight) Branch hours as needed for Pain (scale 4-6). ibuprofen 2020- No [id number] 800mg Take 1 Univers 800 mg 7-12 21- tablet by ity of tablet 00:00: 00:00 mouth [place] 00 :00 every 8 Medical (eight) Branch hours as needed for Pain (scale 4-6). ibuprofen 2020- No [id number] 800mg Take 1 Univers 800 mg -12 [...] 11/14/20 at Branch 2300, Routine benzonatate Yes [id number] 100mg Take 1 Univers 100 mg 3-03 capsule by ity of capsule 00:00: mouth 3 00 (three) Medical times Branch daily as needed for Cough. benzonatate Yes [id number] 100mg Take 1 Univers 100 mg 3-03 capsule by ity of capsule 00:00: mouth 3 [place] 00 (three) Medical times Branch daily as needed for Cough. benzonatate 2020-0 Yes [id number] 100mg Take 1 Univers 100 mg 3-03 capsule by ity of capsule 00:00: mouth 3 [place] 00 (three) Medical times Branch daily as needed for Cough. benzonatate 0 Yes [id number] 100mg Take 1 Univers 100 mg 3-03 capsule by ity of capsule 00:00: mouth 3 [place] 00 (three) Medical times Branch daily as needed for Cough. benzonatate Yes [id number] 100mg Take 1 Univers 100 mg 3-03 capsule by ity of capsule 00:00: mouth 3 [place] 00 (three) Medical times Branch daily as needed for Cough. benzonatate Yes [id number] 100mg Take 1 Univers 100 mg 3-03 capsule by ity of capsule 00:00: mouth 3 [place] 00 (three) Medical times Branch daily as needed for Cough. benzonatate 2020- No [id number] 100mg Take 1 Univers 100 mg 3-03 09-09 capsule by ity of capsule 00:00: 00:00 mouth 3 [place] 00 :00 (three) Medical times Branch daily as needed for Cough. benzonatate 2020- No [id number] 100mg Take 1 Univers 100 mg 3-03 09-09 capsule by ity of capsule 00:00: 00:00 mouth 3 [place] 00 :00 (three) Medical times Branch daily as needed for Cough. diphenhydrA 2020- No 25mg 25 mg, Uni vers MINE 09-30 Slow IV ity of (BENADRYL) 16:00: 15:17 Push, [place] injection 00 :00 ONCE, 1 Medical 25 mg dose, [place] Branch 09/30/20 at 1000, STAT metoclopram 2020- No 10mg 10 mg, Uni vers jerilyn HCl 09-30 Slow IV ity of (REGLAN) 16:00: 15:17 Push, [place] injection 00 :00 ONCE, 1 Medical 10 mg dose, [place] Branch 09/30/20 at 1000, VASILIY NaCl 0.9% 2020- No 1000mL at 999 Uni vers (NS) bolus 09-30 mL/hr, ity of infusion 15:00: 16:45 1,000 mL, Jim as 1,000 mL 00 :00 IV Medical Infusion, Branch ONCE, 1 dose, [place] 09/30/20 at 0900, VASILIY lisinopriL Yes [id number] 10mg Take 1 Univers 10 mg 1-17 tablet by ity of tablet 00:00: mouth at [place] 00 bedtime. Medical Branch amLODIPine Yes [id number] 10mg Take 1 Univers (NORVASC) 1-17 tablet by ity o f 10 mg 00:00: mouth [place] tablet 00 daily. Medical Branch lisinopriL Yes [id number] 10mg Take 1 Univers 10 mg 1-17 tablet by ity of tablet 00:00: mouth at [place] 00 bedtime. Medical Branch amLODIPine Yes [id number] 10mg Take 1 Univers (NORVASC) 1-17 tablet by ity o f 10 mg 00:00: mouth [place] tablet 00 daily. Medical Branch lisinopriL Yes [id number] 10mg Take 1 Univers 10 mg 1-17 tablet by ity of tablet 00:00: mouth at [place] 00 bedtime. Medical Branch amLODIPine Yes [id number] 10mg Take 1 Univers (NORVASC) 1-17 tablet by ity o f 10 mg 00:00: mouth [place] tablet 00 daily. Medical Branch lisinopriL Yes [id number] 10mg Take 1 Univers 10 mg 1-17 tablet by ity of tablet 00:00: mouth at [place] 00 bedtime. Medical Branch amLODIPine Yes [id number] 10mg Take 1 Univers (NORVASC) 1-17 tablet by ity o f 10 mg 00:00: mouth [place] tablet 00 daily. Medical Branch lisinopriL Yes [id number] 10mg Take 1 Univers 10 mg 1-17 tablet by ity of tablet 00:00: mouth at [place] 00 bedtime. Medical Branch amLODIPine Yes [id number] 10mg Take 1 Univers (NORVASC) 1-17 tablet by ity o f 10 mg 00:00: mouth [place] tablet 00 daily. Medical Branch lisinopriL Yes [id number] 10mg Take 1 Univers 10 mg 1-17 tablet by ity of tablet 00:00: mouth at [place] 00 bedtime. Medical Branch amLODIPine Yes [id number] 10mg Take 1 Univers (NORVASC) 1-17 tablet by ity o f 10 mg 00:00: mouth [place] tablet 00 daily. Medical Branch lisinopriL Yes [id number] 10mg Take 1 Univers 10 mg 1-17 tablet by ity of tablet 00:00: mouth at [place] 00 bedtime. Medical Branch amLODIPine 2021-0 Yes [id number] 10mg Take 1 Univers (NORVASC) 1-17 tablet by ity o f 10 mg 00:00: mouth [place] tablet 00 daily. Medical Branch lisinopriL 2020-0 Yes [id number] 10mg Take 1 Univers 10 mg 1-17 tablet by ity of tablet 00:00: mouth at [place] 00 bedtime. Medical Branch amLODIPine 0 Yes [id number] 10mg Take 1 Univers (NORVASC) 1-17 tablet by ity o f 10 mg 00:00: mouth [place] tablet 00 daily. Medical Branch lisinopriL 0 Yes [id number] 10mg Take 1 Univers 10 mg 1-17 tablet by ity of tablet 00:00: mouth at [place] 00 bedtime. Medical Branch amLODIPine 0 Yes [id number] 10mg Take 1 Univers (NORVASC) 1-17 tablet by ity o f 10 mg 00:00: mouth [place] tablet 00 daily. Medical Branch lisinopriL 0 Yes [id number] 10mg Take 1 Univers 10 mg 1-17 tablet by ity of tablet 00:00: mouth at [place] 00 bedtime. Medical Branch amLODIPine 0 Yes [id number] 10mg Take 1 Univers (NORVASC) 1-17 tablet by ity o f 10 mg 00:00: mouth [place] tablet 00 daily. Medical Branch lisinopriL 0 Yes [id number] 10mg Take 1 Univers 10 mg 1-17 tablet by ity of tablet 00:00: mouth at [place] 00 bedtime. Medical Branch amLODIPine 0 Yes [id number] 10mg Take 1 Univers (NORVASC) 1-17 tablet by ity o f 10 mg 00:00: mouth [place] tablet 00 daily. Medical Branch lisinopriL 0 Yes [id number] 10mg Take 1 Univers 10 mg 1-17 tablet by ity of tablet 00:00: mouth at [place] 00 bedtime. Medical Branch amLODIPine 0 Yes [id number] 10mg Take 1 Univers (NORVASC) 1-17 tablet by ity o f 10 mg 00:00: mouth [place] tablet 00 daily. Medical Branch maalox:diph 2020-1 2020- No 15mL 15 mL, Uni vers enhydrAMINE 0-19 10-19 Oral, ity of :lidocaine 03:30: 03:30 ONCE, 1 Jim as 2 % viscous 00 :00 dose, [place] Med ical 1:1:1 07/01/20 Branch ([facility] at 2230[facility] VASILIY oral suspension 15 mL sodium 2019-09 Yes 5mL 5 mL, Univers chloride 0-19 Intravenou ity o f (NS) 03:00: s, PRN, [place] injection 5 48 Starting [facility] 07/01/20 at 2200, Until Discontinu ed, Routine, IV line flushing sucralfate 2019-09 2020- No [id number] 1g Take 1 Univers 1 gram 0-18 11-02 tablet by ity of tablet 00:00: 05:59 mouth [place] 00 :00 before Medical meals and Branch at bedtime for 14 days. No known No Univers medications ity [facility] [place] [facility] Immunizations Ordered Filled Immunization Date Status Comments [facility] e Immunization Name Name SARS-COV-2 COVID-19 2021-05-07 Completed Unive rsity of PFIZER VACCINE 00:00:00 [facility] SARS-COV-2 COVID-19 2021-05-07 Completed Unive rsity of PFIZER VACCINE 00:00:00 [facility] SARS-COV-2 COVID-19 2021-05-07 Completed Unive rsity of PFIZER VACCINE 00:00:00 [facility] SARS-COV-2 COVID-19 2021-05-07 Completed Unive rsity of PFIZER VACCINE 00:00:00 [facility] SARS-COV-2 COVID-19 2021-05-07 Completed Unive rsity of PFIZER VACCINE 00:00:00 [facility] Vital Signs Vital Name Observation Time Observation Value Comments Source Systolic blood 2021-05-24 06:00:00 135 mm[Hg] Univer sity of pressure [facility] Diastolic blood 2021-05-24 06:00:00 97 mm[Hg] Unive rsity of pressure [facility] Heart rate 2021-05-24 06:00:00 88 /[facility] [place] [facility] Respiratory rate 2021-05-24 06:00:00 21 /min [facility] Oxygen saturation in 2021-05-24 06:00:00 94 /min [facility] Arterial blood by [facility] Pulse oximetry Branch Body temperature 2021-05-24 01:47:00 37.28 Cindi Univ ersity of [place] [facility] Body height 2021-05-24 01:47:00 195.6 cm Universi ty of [place] [facility] Body weight 2021-05-24 01:47:00 127.461 kg Universi ty of [place] [facility] BMI 2021-05-24 01:47:00 33.32 kg/m2 Universi ty of [place] [facility] Systolic blood 2021-05-22 23:36:00 154 mm[Hg] Univer sity of pressure [place] [facility] Diastolic blood 2021-05-22 23:36:00 112 mm[Hg] Unive rsity of pressure [place] [facility] Heart rate 2021-05-22 23:36:00 97 /min Universi ty [facility] [place] [facility] Body temperature 2021-05-22 23:36:00 36 Cindi Univ ersity of [place] [facility] Respiratory rate 2021-05-22 23:36:00 19 /min Univ ersity of [place] [facility] Body height 2021-05-22 23:36:00 195.6 cm Universi ty [facility] [place] [facility] Body weight 2021-05-22 23:36:00 127.007 kg Universi ty of [place] [facility] BMI 2021-05-22 23:36:00 33.20 kg/m2 Universi ty of [place] [facility] Oxygen saturation in 2021-05-22 23:36:00 96 /min University of Arterial blood by [facility] Pulse oximetry Branch Systolic blood 2021-05-02 00:01:00 157 mm[Hg] Univer sity of pressure [place] [facility] Diastolic blood 2021-05-02 00:01:00 93 mm[Hg] Unive rsity of pressure [place] [facility] Heart rate 2021-05-02 00:01:00 84 /min Universi ty of [place] [facility] Body temperature 2021-05-02 00:01:00 36.56 Cindi Univ ersity of [place] [facility] Respiratory rate 2021-05-02 00:01:00 18 /min Univ ersity of [place] [facility] Body weight 2021-05-02 00:01:00 126.554 kg Universi ty of [place] [facility] BMI 2021-05-02 00:01:00 33.08 kg/m2 Universi ty of [place] [facility] Oxygen saturation in 2021-05-02 00:01:00 97 /min University of Arterial blood by [place] Medi amy Pulse oximetry Branch Systolic blood 2021-04-02 01:01:00 144 mm[Hg] Univer sity of pressure [place] [facility] Diastolic blood 2021-04-02 01:01:00 94 mm[Hg] Unive rsity of pressure [place] [facility] Heart rate 2021-04-02 01:01:00 89 /min Universi ty of [place] [facility] Body temperature 2021-04-02 01:01:00 37.06 Cindi Univ ersity of [place] [facility] Respiratory rate 2021-04-02 01:01:00 18 /min Univ ersity of [place] [facility] Body weight 2021-04-02 01:01:00 129.729 kg Universi ty of [place] [facility] BMI 2021-04-02 01:01:00 33.91 kg/m2 Universi ty of [place] [facility] Oxygen saturation in 2021-04-02 01:01:00 100 /min University of Arterial blood by [facility] Pulse oximetry Branch Systolic blood 2021-04-02 01:01:00 144 mm[Hg] Univer sity of pressure [place] [facility] Diastolic blood 2021-04-02 01:01:00 94 mm[Hg] Unive rsity of pressure [place] [facility] Heart rate 2021-04-02 01:01:00 89 /min Universi ty of [place] [facility] Body temperature 2021-04-02 01:01:00 37.06 Cindi Univ ersity of [place] [facility] Respiratory rate 2021-04-02 01:01:00 18 /min Univ ersity of [place] [facility] Body weight 2021-04-02 01:01:00 129.729 kg Universi ty of [place] [facility] BMI 2021-04-02 01:01:00 33.91 kg/m2 Universi ty of [place] [facility] Oxygen saturation in 2021-04-02 01:01:00 100 /min University of Arterial blood by [place] [facility] amy Pulse oximetry Branch Systolic blood 2021-03-18 03:16:13 140 mm[Hg] Univer sity of pressure [place] [facility] Diastolic blood 2021-03-18 03:16:13 80 mm[Hg] Unive rsity of pressure [place] [facility] Heart rate 2021-03-18 03:16:13 80 /min Universi ty of [place] [facility] Body temperature 2021-03-18 03:16:13 36.67 Cindi Univ ersity of [place] [facility] Respiratory rate 2021-03-18 03:16:13 19 /min Univ ersity of [place] [facility] Oxygen saturation in 2021-03-18 03:16:13 99 /min University of Arterial blood by [facility] Pulse oximetry Branch Body weight 2021-03-18 01:02:00 129.729 kg Universi ty of [place] [facility] BMI 2021-03-18 01:02:00 33.91 kg/m2 Universi ty of [place] [facility] Systolic blood 2021-03-18 03:16:13 140 mm[Hg] Univer sity of pressure [place] [facility] Diastolic blood 2021-03-18 03:16:13 80 mm[Hg] Unive rsity of pressure [place] [facility] Heart rate 2021-03-18 03:16:13 80 /min Universi ty of [place] [facility] Body temperature 2021-03-18 03:16:13 36.67 Cindi Univ ersity of [place] [facility] Respiratory rate 2021-03-18 03:16:13 19 /min Univ ersity of [place] [facility] Oxygen saturation in 2021-03-18 03:16:13 99 /min University of Arterial blood by [facility] Pulse oximetry Branch Body weight 2021-03-18 01:02:00 129.729 kg Universi ty of [place] [facility] BMI 2021-03-18 01:02:00 33.91 kg/m2 Universi ty of [place] [facility] Oxygen saturation in 2020-11-15 04:31:00 97 /min University of Arterial blood by [facility] Pulse oximetry Branch Systolic blood 2020-11-15 03:25:00 173 mm[Hg] Univer sity of pressure [place] [facility] Diastolic blood 2020-11-15 03:25:00 97 mm[Hg] Unive rsity of pressure [place] [facility] Heart rate 2020-11-15 03:25:00 84 /min Universi ty of [place] [facility] Body temperature 2020-11-15 03:25:00 36.67 Cindi Univ ersity of [place] [facility] Respiratory rate 2020-11-15 03:25:00 20 /min Univ ersity of [place] [facility] Body weight 2020-11-15 03:25:00 132.45 kg Universi ty of [place] [facility] BMI 2020-11-15 03:25:00 34.63 kg/m2 Universi ty of [place] [facility] Oxygen saturation in 2020-11-15 04:31:00 97 /min University of Arterial blood by [facility] Pulse oximetry Branch Systolic blood 2020-11-15 03:25:00 173 mm[Hg] Univer sity of pressure [place] [facility] Diastolic blood 2020-11-15 03:25:00 97 mm[Hg] Unive rsity of pressure [place] [facility] Heart rate 2020-11-15 03:25:00 84 /min Universi ty of [place] [facility] Body temperature 2020-11-15 03:25:00 36.67 Cindi Univ ersity of [place] [facility] Respiratory rate 2020-11-15 03:25:00 20 /min Univ ersity of [place] [facility] Body weight 2020-11-15 03:25:00 132.45 kg Universi ty [facility] [place] [facility] BMI 2020-11-15 03:25:00 34.63 kg/m2 [facility]i ty [facility] [place] [facility] Systolic blood 2020-09-30 16:30:00 121 mm[Hg] Univer sity of pressure [place] [facility] Diastolic blood 2020-09-30 16:30:00 66 mm[Hg] Unive rsity of pressure [place] [facility] Heart rate 2020-09-30 16:30:00 72 /min Universi ty of [place] [facility] Respiratory rate 2020-09-30 16:30:00 19 /min Univ ersity of [place] [facility] Oxygen saturation in 2020-09-30 16:30:00 94 /min University of Arterial blood by [facility] Pulse oximetry Branch Body weight 2020-09-30 14:20:00 136.079 kg Universi ty of [place] [facility] BMI 2020-09-30 14:20:00 35.57 kg/m2 Universi ty [facility] [place] [facility] Body temperature 2020-09-30 14:10:00 37.06 Cindi Univ ersity of [place] [facility] Systolic blood 2020-09-30 16:30:00 121 mm[Hg] Univer sity of pressure [place] [facility] Diastolic blood 2020-09-30 16:30:00 66 mm[Hg] Unive rsity of pressure [place] [facility] Heart rate 2020-09-30 16:30:00 72 /min Universi ty of [place] [facility] Respiratory rate 2020-09-30 16:30:00 19 /min Univ ersity of [place] [facility] Oxygen saturation in 2020-09-30 16:30:00 94 /min University of Arterial blood by [place] [facility] amy Pulse oximetry Branch Body weight 2020-09-30 14:20:00 136.079 kg Universi ty of [place] [facility] BMI 2020-09-30 14:20:00 35.57 kg/m2 [facility]i ty [facility] [place] [facility] Body temperature 2020-09-30 14:10:00 37.06 Cindi Univ ers[facility] [place] [facility] Systolic blood 2020-07-02 04:00:00 132 mm[Hg] Univer sity of pressure [place] [facility] Diastolic blood 2020-07-02 04:00:00 84 mm[Hg] Unive rsity of pressure [place] [facility] Heart rate 2020-07-02 04:00:00 89 /min Universi ty of [place] [facility] Oxygen saturation in 2020-07-02 04:00:00 95 /min University of Arterial blood by [facility] Pulse oximetry Branch Body temperature 2020-07-02 02:53:00 36.94 Cindi Univ ers[facility] [place] [facility] Respiratory rate 2020-07-02 02:53:00 18 /min Univ ersity of [place] [facility] Body height 2020-07-02 02:53:00 195.6 cm [facility]i ty [facility] [place] [facility] Body weight 2020-07-02 02:53:00 136.079 kg [facility]i ty [facility] [place] [facility] BMI 2020-07-02 02:53:00 35.57 kg/m2 [facility]i ty [facility] [place] [facility] Systolic blood 2020-07-02 04:00:00 132 mm[Hg] Univer sity of pressure [place] [facility] Diastolic blood 2020-07-02 04:00:00 84 mm[Hg] Unive rsity of pressure [place] [facility] Heart rate 2020-07-02 04:00:00 89 /min [facility]i ty [facility] [place] [facility] Oxygen saturation in 2020-07-02 04:00:00 95 /min University of Arterial blood by [facility] Pulse oximetry Branch Body temperature 2020-07-02 02:53:00 36.94 Cindi Univ ers[facility] [place] [facility] Respiratory rate 2020-07-02 02:53:00 18 /min [facility] Body height 2020-07-02 02:53:00 195.6 cm [facility] Body weight 2020-07-02 02:53:00 136.079 kg [facility] BMI 2020-07-02 02:53:00 35.57 kg/m2 [facility] Procedures Procedure Date / Time Performed Performing Clinician Meir e CREATINE KINASE 2021-05-24 04:40:00 Felipe Ortega [facility] BASIC METABOLIC PANEL 2021-05-24 04:40:00 Felipe Ortega [facility] (NA, K, CL, CO2, Medical Branch GLUCOSE, BUN, CREATININE, CA) URINALYSIS 2021-05-24 02:14:00 Felipe Ortega [facility] CREATINE KINASE 2021-05-24 01:53:00 Felipe Ortega [facility] TROPONIN I 2021-05-24 01:53:00 Felipe Ortega [facility] COMP. METABOLIC PANEL 2021-05-24 01:53:00 Felipe Ortega [facility] ([id number]) [facility] CBC WITH DIFF 2021-05-24 01:53:00 Felipe Ortega [facility] N-TERMINAL PRO-BNP 2021-05-24 01:53:00 Felipe Ortega [facility] ASSIGNMENT OF BENEFITS 2021-05-23 00:46:04 Doctor Unassigned, No [facility] Name [facility] Branch CONSENT/REFUSAL FOR 2021-05-22 23:31:57 Doctor Unassigned, No Un [facility] [place] DIAGNOSIS AND Name [facility] TREATMENT SARS-COV-2 COVID-19 2021-05-07 16:12:40 [facility] Name [facility] (PFIZER) RAPID STREP SCREEN FOR 2021-05-02 00:07:00 [facility] GROUP A Medical Branch COVID-19 (ID NOW RAPID 2021-05-02 00:07:00 [facility] TESTING) Medical Branch CONSENT/REFUSAL FOR 2021-05-01 23:56:07 Doctor Unassigned, No [facility] [place] DIAGNOSIS AND Name Medical Branch TREATMENT RAPID STREP SCREEN FOR 2021-04-02 01:05:00 Nikhil Mckinley [facility] GROUP A Medical Branch COVID-19 (ID NOW RAPID 2021-04-02 01:05:00 Nikhil Mckinley [facility] TESTING) Medical Branch NOTICE OF PRIVACY 2021-04-02 00:56:18 Doctor Unassigned, No [facility] PRACTICES Name Medical Branch CONSENT/REFUSAL FOR 2021-04-02 00:49:05 Doctor Unassigned, No Un [facility] [place] DIAGNOSIS AND Name Medical Branch TREATMENT XR WRIST 3+ VW LEFT 2021-03-18 01:19:59 Nikhil Mckinley [facility] URINALYSIS 2021-03-18 01:12:00 Nikhil Mckinley [facility] CONSENT/REFUSAL FOR 2021-03-18 00:56:01 Doctor Unassigned, No Un [facility] [place] DIAGNOSIS AND Name Medical Branch TREATMENT XR CHEST 1 VW 2020-11-15 03:48:28 Darnell Hsu [facility] CONSENT/REFUSAL FOR 2020-11-15 03:11:27 Doctor Unassigned, No Un [facility] [place] DIAGNOSIS AND Name Medical [place] TREATMENT CT HEAD WO CONTRAST 2020-09-30 15:00:[address] [facility] XR CHEST 1 VW 2020-09-30 14:37:13 Jessy Siddiqui [facility] LIPASE 2020-09-30 14:25:00 Jessy Siddiqui [facility] TROPONIN I 2020-09-30 14:25:00 Jessy Siddiqui [facility] COMP. METABOLIC PANEL 2020-09-30 14:25:00 Jessy Siddiqui [facility] ([id number]) [facility] CBC WITH DIFF 2020-09-30 14:25:00 Jessy Siddiqui [facility] N-TERMINAL PRO-BNP 2020-09-30 14:25:00 Jessy Siddiqui [facility] NOTICE OF PRIVACY 2020-09-30 13:57:13 Doctor Unassigned, No [facility] Branch CONSENT/REFUSAL FOR 2020-09-30 13:55:57 Doctor Unassigned, No [facility] [place] DIAGNOSIS AND Name Medical Branch TREATMENT EKG-12 LEAD 2020-07-02 03:20:42 Felipe Ortega [facility] LIPASE 2020-07-02 03:05:00 Juan Orantes [facility] TROPONIN I 2020-07-02 03:05:00 Felipe Ortega [facility] COMP. METABOLIC PANEL 2020-07-02 03:05:00 Juan Orantes [facility] ([id number]) [facility] CBC WITH DIFF 2020-07-02 03:05:00 Jaun Orantes [facility] NOTICE OF PRIVACY 2020-07-02 02:48:43 Doctor Unassigned, No [facility] CONSENT/REFUSAL FOR 2020-07-02 02:46:14 Doctor Unassigned, No [facility] [place] [facility] AND Name [facility] TREATMENT Encounters Start End Encounter Admission Attending Care Care Encounter Source Date/Time Date/Time Type Type Clinicians Facility Department ID 2021-07-14 Emergency X [facility] [id number] Univers 03:01:33 ity [facility] 2021-05-23 2021-05-24 Emergency [facility] 1.2.840.114 [id number] Univers 20:42:00 01:42:00 Felipe Krueger 350.1.13.10 i ty [facility] 4.2.7.2.686 [facility] [id number] [facility] 084 Branch 2021-05-23 2021-05-23 Emergency X SHANNON, [facility] ERT [id number] Univers 20:42:00 20:42:00 [facility]-05-22 2021-05-22 [facility] [id number] Univers 18:37:00 21:40:00 Gabriella Krueger 350.1.13.10 ity [facility] 4.2.7.2.686 [facility] [id number] [address] 2021-05-22 2021-05-22 Emergency X [facility] ERT [id number] Univers 18:31:00 18:31:00 ity [facility] 2021-05-07 2021-05-07 Imm/Inj Nurse, Adc Pob Immunization [facility] 1.2.840.114 [id number] Univers 11:11:35 11:11:42 Visit David Clarke 350.1.13 .10 ity [facility] 4.2.7.[address] [place], [place] [address]essio [phone] De dical [address] 2021-05-01 2021-05-01 Emergency Mckinley, [facility] 1.2.840.114 [id number] Univers 19:09:00 20:46:00 Nikhil Krueger 350.1.13.10 i ty of [place] 4.[address] [place] [phone] 2021-05-01 2021-05-01 Emergency X [facility] ERT [id number] Univers 18:53:00 18:53:00 ity [facility] 2021-04-01 2021-04-01 Emergency Mckinley, [facility] 1.2.840.114 [id number] 20:06:00 21:56:00 Nikhilberhane Krueger 350.1.13.10 [place] 4.2.7.2.686 [place] [id number] [facility] 2021-04-01 2021-04-01 Emergency Mckinley, [facility] 1.2.840.114 [id number] Univers 20:06:00 21:56:00 Nikhil [place] 350.1.13.10 i ty of [place] 4.[address] [place] [id number] 2021-04-01 2021-04-01 Emergency X MCKINLEY, [facility] ERT [id number] Univers 20:06:00 20:06:00 NIKHIL ity [facility] 2021-03-17 2021-03-17 Emergency Mckin[place], [facility] 1.2.840.114 [id number] 20:09:00 22:19:00 Nikhil Krueger 350.1.13.10 [place] 4.2.7.2.686 [place] [id number] 084 2021-03-17 2021-03-17 Emergency [facility] 1.2.840.114 [id number] Univers 20:09:00 22:19:00 Nikhil Krueger 350.1.13.10 i ty of [place] 4.2.7.2.686 [facility] [phone] [facility] 084 Branch 2021-03-17 2021-03-17 Emergency X [facility] ERT [id number] Univers 19:56:00 19:56:00 ity of [facility] 2020-11-15 2020-11-15 Telephone PcpKARL [id number] 00:00:00 00:00:00 Patient EVE 350.1.13.10 Does [facility] 4.2.7.2.686 Have A [id number] 019 2020-11-15 2020-11-15 Letter KARL Mar 1.2.840.114 [id number] 00:00:00 00:00:00 (Out) Mirna PRADO 350.1.13.10 HOSPITAL 42.7.2.686 [id number] 019 2020-11-15 2020-11-15 Letter KARL Mar 1.2.840.114 [id number] Univers 00:00:00 00:00:00 (Out) Mirna HERNANDEZY 350.1.13.10 it y of HOSPITAL 4.2.7.2.686 Jim as [id number] [place] [address] Branch 2020-11-15 2020-11-15 Telephone PcpKARL [id number] [id number] Univers 00:00:00 00:00:00 Patient EVE 350.1.13.10 it y of Does [facility] [place] Have A [id number] [facility] 019 Branch 2020-11-14 2020-11-14 Emergency [facility] 1.2.927.124 [id number] 21:29:00 22:55:00 Darnell Krueger 350.1.13.10 [place] 4.2.7.2.686 [place] [phone] [facility] 2020-11-14 2020-11-14 Emergency [facility] 1.2.021.871 [id number] Univers 21:29:00 22:55:00 Darnell Krueger 350.1.13.10 i ty of [place] 4.2.7.2.686 [facility] [id number] [place] 832834 [place] 2020-09-30 2020-09-30 Emergency [facility] 1.2.840.114 [id number] Univers 08:03:00 10:45:00 Jessy Krueger 350.1.13.10 ity of [place] 4.2.7.2.686 [facility] [phone] [address] 2020-09-30 2020-09-30 Emergency [facility] 1.2.840.114 [id number] 08:03:00 10:45:00 Jessy Krueger 350.1.13.10 [place] 4.2.7.2.686 [place] [id number] [facility] 2020-09-30 2020-09-30 Emergency X [facility] ERT [id number] Univers 07:58:00 07:58:00 ity of [facility] 2020-09-30 2020-09-30 Orders Doctor BARAJAS 1.2.840.114 [id number] Univers 00:00:00 00:00:00 Only UnassignedEVE 350.1.13.10 ity of [place] [facility] 4.2.7.2.686 Jim [phone] [place] [address] Branch 2020-09-30 2020-09-30 Orders Doctor BARAJAS 1.2.840.114 [id number] 00:00:00 00:00:00 Only UnassignedEVE 350.1.13.10 [place] [facility] 4.2.7.2.686 [id number] 009 2020-07-01 2020-07-01 Emergency [facility] 1.2.840.114 [id number] Univers 21:58:00 23:54:00 Felipe Krueger 350.1.13.10 i ty of [place] 4.2.7.2.686 [facility] [id number] [place] [address] Branch 2020-07-01 2020-07-01 Emergency [facility] 1.2.840.114 [id number] 21:58:00 23:54:00 Felipe Krueger 350.1.13.10 [place] 4.2.7.2.686 [place] [id number] [facility] 2020-07-01 2020-07-01 Emergency X [facility] ERT [id number] Univers 21:58:00 21:58:00 FELIPE hester [facility] Results Test Description Test Time Test Comments Results Result Comments Source CREATINE KINASE 2021-05-24 05:55:54 Test Item Value Reference Range Interpretation Comme nts CK (test code = 5753248642) 3682 U/L 33-194 H Lab Interpretation (test code = 97748-7) [facility]normal [facility] [id number] 05:55:54 Test Item Value Reference Range Interpretation Comments CK (test code = 2408446478) 3682 U/L 33-194 H Lab Interpretation (test code = Abnormal 05982-4) [facility] (NA, K, CL, CO2, GLUCOSE, BUN, CREATININE, CA)2021-05-24 05:02:27 Test Item Value Reference Range Interpretation Comments NA (test code = 137 mmol/L 135-145 6854922033) K (test code = 3.6 mmol/L 3.5-5.0 3904259012) CL (test code = 105 mmol/L 98-108 4562490437) CO2 TOTAL (test code = 23 mmol/L 23-31 9617916658) AGAP (test code = 2-16 3623746537) BUN (test code = 26 mg/dL 7-23 H 4519376651) GLUCOSE (test code = 95 mg/dL 70-110 5122832958) CREATININE (test code = 1.31 mg/dL 0.60-1.25 H 1675663276) CALCIUM (test code = 8.6 mg/dL 8.6-10.6 6832931624) eGFR (test code = mL/min/1.73m2 1755067647) KRYSTLE (test code = KRYSTLE) Association of [...] tests). Lab Interpretation Abnormal (test code = 68033-5) [facility] METABOLIC PANEL (NA, K, CL, CO2, GLUCOSE, BUN, CREATININE, CA)2021-05-24 05:02:27 Test Item Value Reference Range Interpretation Comments NA (test code = 137 mmol/L 135-145 3768137656) K (test code = 3.6 mmol/L 3.5-5.0 8504726398) CL (test code = 105 mmol/L 98-108 5928013335) CO2 TOTAL (test code = 23 mmol/L 23-31 5473563272) AGAP (test code = 2-16 3294705092) BUN (test code = 26 mg/dL 7-23 H 6981259847) GLUCOSE (test code = 95 mg/dL 70-110 7767435495) CREATININE (test code = 1.31 mg/dL 0.60-1.25 H 8924770154) CALCIUM (test code = 8.6 mg/dL 8.6-10.6 1062192253) eGFR (test code = mL/min/1.73m2 7579596560) KRYSTLE (test code = KRYSTLE) Association of [...] tests). Lab Interpretation Abnormal (test code = 57809-8) [facility] CenterM[facility]ISSA [id number] 02:56:10 Test Item Value Reference Interpretation Comments Range TROPONIN I (test 0.004 ng/mL See_Comment [Automated code = 7282629360) message] The system which generated this result [...] biotin. Lab Interpretation Normal (test code = 71636-9) [facility] [id number] 02:56:10 Test Item Value Reference Interpretation Comments Range TROPONIN I (test 0.004 ng/mL See_Comment [Automated code = 9296829746) message] The system which generated this result [...] biotin. Lab Interpretation Normal (test code = 62101-6) [facility] [id number] 02:41:54 Test Item Value Reference Range Interpretation Comments CK (test code = 4521949183) 4607 U/L 33-194 H Lab Interpretation (test code = Abnormal 78598-1) [id number] 02:41:54 Test Item Value Reference Range Interpretation Comments CK (test code = 8088755844) 4607 U/L 33-194 H Lab Interpretation (test code = Abnormal 37011-0) [facility]AL [id number] 02:33:28 Test Item Value Reference Range Interpretation Comments NT-proBNP (test code 14 pg/mL See_Comment [Autom ated = 6756487352) message] The system which generated this result transmitted reference range : <=125. The reference range was not used to interpret this result as normal/abnormal . KRYSTLE (test code = KRYSTLE) Biotin has been reported to cause a negative bias, interpret results relative to patient's use of biotin. Lab Interpretation Normal (test code = 30095-9) [facility] [id number] 02:33:28 Test Item Value Reference Range Interpretation Comments NT-proBNP (test code 14 pg/mL See_Comment [Autom ated = 7160864014) message] The system which generated this result transmitted reference range : <=125. The reference range was not used to interpret this result as normal/abnormal . KRYSTLE (test code = KRYSTLE) Biotin has been reported to cause a negative bias, interpret results relative to patient's use of biotin. Lab Interpretation Normal (test code = 77654-9) [facility]IS2021-09-10 02:29:35 Test Item Value Reference Range Interpretation Comments APPEARANCE (test code = Clear Clear 9743550799) COLOR (test code = Yellow Yellow 3925363270) PH (test code = 4.8-8.0 4814768862) SP GRAVITY (test code = 1.003-1.030 0319386110) GLU U QUAL (test code = Normal Normal 8483460320) BLOOD (test code = Negative Negative 9154295681) KETONES (test code = Negative Negative 1113843120) PROTEIN (test code = Negative Negative 2887-8) UROBILIN (test code = 2.0 mg/dL Normal A 1732035468) BILIRUBIN (test code = Negative Negative 3616913053) NITRITE (test code = Negative Negative 3613387147) LEUK MO (test code = Negative Negative 3301840619) RBC/HPF (test code = See_Comment [Autom ated message] 2716152278) The system [employer] generated this result transmit delvin reference range : 0 - 3 HPF. The refe rence range was not u sed to interpret th is result as normal/abnormal . WBC/HPF (test code = See_Comment [Autom ated message] 7938664222) The system [employer] generated this result transmit delvin reference range : 0 - 5 HPF. The refe rence range was not u sed to interpret th is result as normal/abnormal . BACTERIA (test code = Negative Negative 9317770569) MUCOUS (test code = Slight Negative LPF A 9198015993) SQ EPITH (test code = <1 HPF 2171787069) Lab Interpretation (test Abnormal code = 57958-1) [facility]2021-[facility]-10 02:29:35 Test Item Value Reference Range Interpretation Comments APPEARANCE (test code = Clear Clear 9613635824) COLOR (test code = Yellow Yellow 6588505659) PH (test code = 4.8-8.0 4256768927) SP GRAVITY (test code = 1.003-1.030 3193885427) GLU U QUAL (test code = Normal Normal 4491282450) BLOOD (test code = Negative Negative 9772586020) KETONES (test code = Negative Negative 1429256016) PROTEIN (test code = Negative Negative 2887-8) UROBILIN (test code = 2.0 mg/dL Normal A 2889485747) BILIRUBIN (test code = Negative Negative 7675294981) NITRITE (test code = Negative Negative 9409572160) LEUK MO (test code = Negative Negative 9228326487) RBC/HPF (test code = See_Comment [Autom ated message] 8679125487) The system [employer] generated this result transmit delvin reference range : 0 - 3 HPF. The refe rence range was not u sed to interpret th is result as normal/abnormal . WBC/HPF (test code = See_Comment [Autom ated message] 3234851656) The system [employer] generated this result transmit delvin reference range : 0 - 5 HPF. The refe rence range was not u sed to interpret th is result as normal/abnormal . BACTERIA (test code = Negative Negative 5741980556) MUCOUS (test code = Slight Negative LPF A 4018198369) SQ EPITH (test code = <1 HPF 4124128719) Lab Interpretation (test Abnormal code = 26807-1) [facility] (25122)2021-05-24 02:25:07 Test Item Value Reference Range Interpretation Comments NA (test code = 137 mmol/L 135-145 6150443040) K (test code = 3.1 mmol/L 3.5-5.0 L 2151921926) CL (test code = 102 mmol/L 98-108 7366385863) CO2 TOTAL (test code = 22 mmol/L 23-31 L 4207502181) AGAP (test code = 2-16 8481507547) BUN (test code = 28 mg/dL 7-23 H 0485324705) GLUCOSE (test code = 132 mg/dL 70-110 H 0074800912) CREATININE (test code = 1.77 mg/dL 0.60-1.25 H 3528819057) TOTAL BILI (test code = 1.0 mg/dL 0.1-1.5 7640650882) CALCIUM (test code = 9.4 mg/dL 8.6-10.6 3317083075) T PROTEIN (test code = 9.4 g/dL 6.3-8.2 H 6181137001) ALBUMIN (test code = 5.0 g/dL 3.5-5.0 5962429908) ALK PHOS (test code = 79 U/L 34-122 0611240381) ALTv (test code = 112 U/L 5-50 H 1742-6) AST(SGOT) (test code = 152 U/L 13-40 H 3948953644) eGFR (test code = mL/min/1.73m2 4836951780) KRYSTLE (test code = KRYSTLE) Association of [...] tests). Lab Interpretation Abnormal (test code = 82179-8) [facility]. METABOLIC PANEL (81122)2021-05-24 02:25:07 Test Item Value Reference Range Interpretation Comments NA (test code = 137 mmol/L 135-145 5031777112) K (test code = 3.1 mmol/L 3.5-5.0 L 4638130086) CL (test code = 102 mmol/L 98-108 3454835009) CO2 TOTAL (test code = 22 mmol/L 23-31 L 1476976131) AGAP (test code = 2-16 5054211766) BUN (test code = 28 mg/dL 7-23 H 5059124954) GLUCOSE (test code = 132 mg/dL 70-110 H 7317233029) CREATININE (test code = 1.77 mg/dL 0.60-1.25 H 8507901478) TOTAL BILI (test code = 1.0 mg/dL 0.1-1.3 5130712661) CALCIUM (test code = 9.4 mg/dL 8.6-10.6 1568582876) T PROTEIN (test code = 9.4 g/dL 6.3-8.2 H 0330347475) ALBUMIN (test code = 5.0 g/dL 3.5-5.0 9945209492) ALK PHOS (test code = 79 U/L 34-122 3188105966) ALTv (test code = 112 U/L 5-50 H 1742-6) AST(SGOT) (test code = 152 U/L 13-40 H 3560682396) eGFR (test code = mL/min/1.73m2 1519196715) KRYSTLE (test code = KRYSTLE) Association of [...] tests). Lab Interpretation Abnormal (test code = 42427-5) [facility] WITH [id number] 02:03:22 Test Item Value Reference Range Interpretation Comments WBC (test code = See_Comment [Automated 5330-2) message] The sy stem which generated this result transmitted reference range : 4.20 - 10.70 10*3/?L. The reference range was not used to interpret this result as normal/abnormal . RBC (test code = See_Comment [Automated 397-8) message] The sy stem which generated this [...] RDW-SD (test code = 39.7 fL 38.5-51.6 28417-7) RDW-CV (test code = 12.7 % 12.1-15.4 788-0) PLT (test code = See_Comment [Automated 777-3) message] The sy stem which generated this result transmitted reference range : 150 - 328 10*3/ ?L. The reference r andrea was not used to interpret this result as normal/abnormal . MPV (test code = 9.7 fL 9.8-13.0 L 93936-0) NRBC/100 WBC (test See_Comment [Automat ed code = 6296427009) message] The system which generated this result transmitted reference range : 0.0 - 10.0 /100 WBCs. The refer ence range was not u sed to interpret th is result as normal/abnormal . NRBC x10^3 (test code <0.01 See_Comment [Auto mated = 7862563678) message] The s ystem which generated this result transmitted reference range : 10*3/?L. The reference range was not used to interpret this result as normal/abnormal . GRAN MAT (NEUT) % 45.9 % (test code = 770-8) IMM GRAN % (test code 0.20 % = 4547913505) LYMPH % (test code = 41.7 % 736-9) MONO % (test code = 11.6 % 5905-5) EOS % (test code = 0.3 % 713-8) BASO % (test code = 0.3 % 706-2) GRAN MAT x10^3(ANC) 3.95 10*3/uL 1.99-6.95 (test code = 3747965159) IMM GRAN x10^3 (test <0.03 0.00-0.06 code = 6672708640) LYMPH x10^3 (test code 3.60 10*3/uL 1.09-3.23 H = 731-0) MONO x10^3 (test code 1.00 10*3/uL 0.36-1.02 = 742-7) EOS x10^3 (test code = 0.03 10*3/uL 0.06-0.53 L 711-2) BASO x10^3 (test code 0.03 10*3/uL 0.01-0.09 = 704-7) Lab Interpretation Abnormal (test code = 71954-9) [facility] WITH [id number] 02:03:22 Test Item Value Reference Range Interpretation [...] RDW-SD (test code = 39.7 fL 38.5-51.6 74476-5) RDW-CV (test code = 12.7 % 12.1-15.4 788-0) PLT (test code = See_Comment [Automated 777-3) message] The sy stem which generated this result transmitted reference range : 150 - 328 10*3/ ?L. The reference r andrea was not used to interpret this result as normal/abnormal . MPV (test code = 9.7 fL 9.8-13.0 L 48530-0) NRBC/100 WBC (test See_Comment [Automat ed code = 1853874935) message] The system which generated this result transmitted reference range : 0.0 - 10.0 /100 WBCs. The refer ence range was not u sed to interpret th is result as normal/abnormal . NRBC x10^3 (test code <0.01 See_Comment [Auto mated = 7987569928) message] The s ystem which generated this result transmitted reference range : 10*3/?L. The reference range was not used to interpret this result as normal/abnormal . GRAN MAT (NEUT) % 45.9 % (test code = 770-8) IMM GRAN % (test code 0.20 % = 7646596684) LYMPH % (test code = 41.7 % 736-9) MONO % (test code = 11.6 % 5905-5) EOS % (test code = 0.3 % 713-8) BASO % (test code = 0.3 % 706-2) GRAN MAT x10^3(ANC) 3.95 10*3/uL 1.99-6.95 (test code = 9797408357) IMM GRAN x10^3 (test <0.03 0.00-0.06 code = 4816933898) LYMPH x10^3 (test code 3.60 10*3/uL 1.09-3.23 H = 731-0) MONO x10^3 (test code 1.00 10*3/uL 0.36-1.02 = 742-7) EOS x10^3 (test code = 0.03 10*3/uL 0.06-0.53 L 711-2) BASO x10^3 (test code 0.03 10*3/uL 0.01-0.09 = 704-7) Lab Interpretation Abnormal (test code = 99462-6) [facility]ID [facility])2021-05-02 00:31:00 Test Item Value Reference Range Interpretation Comments SARS-CoV-2 Rapid ID NOW Not Detected Not Detected (test code = 45634-5) KRYSTLE (test code = KRYSTLE) ID NOW COVID-19 Assay is an isothermal nucleic acid amplification test intended for the qualitative detection of nucleic acid from SARS-CoV-2 viral RNA in nasopharyngeal (CLINICAL ASSISTANT PROFESSOR) specimens. It is used under Emergency Use [...] indicated. Lab Interpretation Normal (test code = 93952-7) [facility] STREP SCREEN FOR GROUP [id number] 00:25:45 Test Item Value Reference Range Interpretation Comments Streptococcus pyogenes (group A) Negative Negative antigen (test code = 59685-1) Lab Interpretation (test code = Normal 69877-3) [facility] NOW RAPID TESTING)2021-04-02 01:41:42 Test Item Value Reference Range Interpretation Comments SARS-CoV-2 Rapid ID NOW Not Detected Not Detected (test code = 05647-0) KRYSTLE (test code = KRYSTLE) ID NOW COVID-19 Assay is an isothermal nucleic acid amplification test intended for the qualitative detection of nucleic acid from SARS-CoV-2 viral RNA in nasopharyngeal (CLINICAL ASSISTANT PROFESSOR) specimens. It is used under Emergency Use [...] indicated. Lab Interpretation Normal (test code = 79941-9) [facility] STREP SCREEN FOR GROUP [id number] 01:39:31 Test Item Value Reference Range Interpretation Comments Streptococcus pyogenes (group A) Negative Negative antigen (test code = 63146-7) Lab Interpretation (test code = Normal 68358-1) [facility] 3+ VW [id number] 02:41:03 Impression: No acute osseous abnormality. AFC: [id number] of Report Exam: XR WRIST 3+ [...] soft tissue edema.IMPRESSIONImpression: No acute osseous abnormality.AFC: [id number] of Report [facility]ysis[facility] 01:32:01 Test Item Value Reference Range Interpretation Comments APPEARANCE (test code = Clear Clear 6749722355) COLOR (test code = Yellow Yellow 3290635578) PH (test code = 4.8-8.0 4688390389) SP GRAVITY (test code = 1.003-1.030 0171520265) GLU U QUAL (test code = Normal Normal 1988769203) BLOOD (test code = Negative Negative 5683235371) KETONES (test code = Negative Negative 9061638467) PROTEIN (test code = Negative Negative 2887-8) UROBILIN (test code = 2.0 mg/dL Normal A 6818804136) BILIRUBIN (test code = Negative Negative 0804324326) NITRITE (test code = Negative Negative 1087825890) LEUK MO (test code = Negative Negative 3134830712) RBC/HPF (test code = See_Comment [Autom ated message] 6393961915) The system [employer] generated this result transmit delvin reference range : 0 - 3 HPF. The refe rence range was not u sed to interpret th is result as normal/abnormal . WBC/HPF (test code = See_Comment [Autom ated message] 5718017984) The system [employer] generated this result transmit delvin reference range : 0 - 5 HPF. The refe rence range was not u sed to interpret th is result as normal/abnormal . BACTERIA (test code = Few Negative A 9468612259) MUCOUS (test code = Slight Negative LPF A 5770488018) SQ EPITH (test code = <1 HPF 4174046242) Lab Interpretation (test Abnormal code = 65561-7) [facility] 1 [id number] 04:09:05Impression: Mild thickening of the sol of the central airways, possibly reflectinginfectious or inflammatory bronchitis. RL: 460 AFC: [id number] Ordering physician: DARNELL SHU Indication: Cough and congestion Comparison: None Fin [...] airways, possibly reflectinginfectious or inflammatory bronchitis.RL: 460AFC: [id number] signed by MD Man, PhD at 11/14/2020 10:09 PM [facility]AL [id number] 15:43:00 Test Item Value Reference Range Interpretation Comments NT-proBNP (test code <11 See_Comment [Autom ated = 9465743388) message] The system which generated this result transmitted reference range : <=125 pg/mL. Th e reference range was not used to interpret this result as normal/abnormal . KRYSTLE (test code = KRYSTLE) Biotin has been reported to cause a negative bias, interpret results relative to patient's use of biotin. Lab Interpretation Normal (test code = 40255-9) [facility] WITH [id number] 15:27:00 Test Item Value Reference Range Interpretation Comments WBC (test code = See_Comment [Automated 3090-2) message] The sy stem which generated this [...] (test code = 37.3 fL 38.5-51.6 L 31570-0) RDW-CV (test code = 11.9 % 12.1-15.4 L 788-0) PLT (test code = See_Comment [Automated 777-3) message] The sy stem which generated this result transmitted reference range : 150 - 328 10*3/ ?L. The reference r andrea was not used to interpret this result as normal/abnormal . MPV (test code = 9.7 fL 9.8-13 L 01297-2) NRBC/100 WBC (test See_Comment [Automat ed code = 2774788096) message] The system which generated this result transmitted reference range : 0.0 - 10.0 /100 WBCs. The refer ence range was not u sed to interpret th is result as normal/abnormal . NRBC x10^3 (test code <0.01 See_Comment [Auto mated = 8080819179) message] The s ystem which generated this result transmitted reference range : 10*3/?L. The reference range was not used to interpret this result as normal/abnormal . GRAN MAT (NEUT) % 29.2 % (test code = 770-8) IMM GRAN % (test code 0.20 % = 7098378640) LYMPH % (test code = 59.0 % 736-9) MONO % (test code = 10.1 % 5905-5) EOS % (test code = 1.1 % 713-8) BASO % (test code = 0.4 % 706-2) GRAN MAT x10^3(ANC) 1.57 10*3/uL 1.99-6.95 L (test code = 7519783643) IMM GRAN x10^3 (test <0.03 0-0.06 code = 6176608415) LYMPH x10^3 (test code 3.17 10*3/uL 1.09-3.23 = 731-0) MONO x10^3 (test code 0.54 10*3/uL 0.36-1.02 = 742-7) EOS x10^3 (test code = 0.06 10*3/uL 0.06-0.53 711-2) BASO x10^3 (test code <0.03 0.01-0.09 = 704-7) Lab Interpretation Abnormal (test code = 35369-2) [facility] [id number] 15:13:32 No acute cardiopulmonary process. Preliminary Report [...] reviewed this study and agree withthe above report.[facility] [id number] 14:59:00 Test Item Value Reference Range Interpretation Comments TROPONIN I (test <0.012 See_Comment [Automated code = 8009005299) message] The system which generated this result [...] ? Lab Interpretation Normal (test code = 66505-1) [facility]OL[facility] PAN[facility] ([id number])2020-09-30 14:59:00 Test Item Value Reference Range Interpretation Comments NA (test code = 139 mmol/L 135-145 0839628526) K (test code = 3.8 mmol/L 3.5-5 5502724610) CL (test code = 103 mmol/L 98-108 7801007998) CO2 TOTAL (test code = 26 mmol/L 23-31 6961149512) AGAP (test code = 2-16 9628670846) BUN (test code = 11 mg/dL 7-23 0781261299) GLUCOSE (test code = 163 mg/dL 70-110 H 2955591964) CREATININE (test code = 0.85 mg/dL 0.6-1.25 6664025421) TOTAL BILI (test code = 0.6 mg/dL 0.1-1.4 4081858136) CALCIUM (test code = 9.0 mg/dL 8.6-10.6 2497041074) T PROTEIN (test code = 8.0 g/dL 6.3-8.2 7113446539) ALBUMIN (test code = 4.4 g/dL 3.5-5 2915220067) ALK PHOS (test code = 75 U/L 34-122 3325824541) ALTv (test code = 61 U/L 5-50 H 1742-6) AST(SGOT) (test code = 54 U/L 13-40 H 9232240261) eGFR Calculation mL/min/1.73m2 (Non-) (test code = 3464252486) eGFR Calculation mL/min/1.73m2 () (test code = 5616947607) KRYSTLE (test code = KRYSLTE) Association of Glomerular Filtration Rate (GFR) and [...] tests). Lab Interpretation Abnormal (test code = 12894-6) [facility] CenterLIP[facility], [id number] 14:59:00 Test Item Value Reference Range Interpretation Comments LIPASE (test code = 2149252164) 116 U/L 0-220 Lab Interpretation (test code = Normal 15203-5) [facility] CenterTroponin [id number] 04:30:00 Test Item Value Reference Range Interpretation Comments TROPONIN I (test <0.012 See_Comment [Automated code = 6280440983) message] The system which generated this result [...] ? Lab Interpretation Normal (test code = 80501-9) [facility] CenterComplete Metabolic [id number] 03:24:00 Test Item Value Reference Range Interpretation Comments NA (test code = 137 mmol/L 135-145 3473627096) K (test code = 4.7 mmol/L 3.5-5 5606998140) CL (test code = 101 mmol/L 98-108 5107160693) CO2 TOTAL (test code = 27 mmol/L 23-31 5132122513) AGAP (test code = 2-16 1118920889) BUN (test code = 16 mg/dL 7-23 6661359148) GLUCOSE (test code = 226 mg/dL 70-110 H 3047687009) CREATININE (test code = 1.13 mg/dL 0.6-1.25 1499468741) TOTAL BILI (test code = 0.7 mg/dL 0.1-1.9 2119168845) CALCIUM (test code = 9.3 mg/dL 8.6-10.6 0179024181) T PROTEIN (test code = 7.8 g/dL 6.3-8.2 0745007578) ALBUMIN (test code = 3.9 g/dL 3.5-5 2774946657) ALK PHOS (test code = 79 U/L 34-122 3710775569) ALTv (test code = 62 U/L 5-50 H 1742-6) AST(SGOT) (test code = 49 U/L 13-40 H 4431565743) eGFR Calculation mL/min/1.73m2 (Non-) (test code = 6673381932) eGFR Calculation mL/min/1.73m2 () (test code = 9382476399) KRYSTLE (test code = KRYSTLE) Association of [...] tests). Lab Interpretation Abnormal (test code = 06229-9) [facility] CenterLipase, [id number] 03:23:00 Test Item Value Reference Range Interpretation Comments LIPASE (test code = 3427706097) 317 U/L 0-220 H Lab Interpretation (test code = Abnormal 51609-4) [facility] CenterCB with [id number] 03:21:00 Test Item Value Reference Range Interpretation Comments WBC (test code = See_Comment [Automated 0245-2) message] The sy stem which generated this result transmitted reference range : 4.20 - 10.70 10*3/?L. The reference range was not used to interpret this result as normal/abnormal . RBC (test code = See_Comment [Automated 268-4) message] The sy stem which generated this [...] (test code = 37.9 fL 38.5-51.6 L 78458-1) RDW-CV (test code = 12.4 % 12.1-15.4 788-0) PLT (test code = See_Comment [Automated 777-3) message] The sy stem which generated this result transmitted reference range : 150 - 328 10*3/ ?L. The reference r andrea was not used to interpret this result as normal/abnormal . MPV (test code = 9.7 fL 9.8-13 L 26944-8) NRBC/100 WBC (test See_Comment [Automat ed code = 5411747220) message] The system which generated this result transmitted reference range : 0.0 - 10.0 /100 WBCs. The refer ence range was not u sed to interpret th is result as normal/abnormal . NRBC x10^3 (test code <0.01 See_Comment [Auto mated = 7297491346) message] The s ystem which generated this result transmitted reference range : 10*3/?L. The reference range was not used to interpret this result as normal/abnormal . GRAN MAT (NEUT) % 36.7 % (test code = 770-8) IMM GRAN % (test code 0.10 % = 7186379264) LYMPH % (test code = 50.9 % 736-9) MONO % (test code = 11.1 % 5905-5) EOS % (test code = 0.8 % 713-8) BASO % (test code = 0.4 % 706-2) GRAN MAT x10^3(ANC) 2.59 10*3/uL 1.99-6.95 (test code = 6088653232) IMM GRAN x10^3 (test <0.03 0-0.06 code = 9816583444) LYMPH x10^3 (test code 3.61 10*3/uL 1.09-3.23 H = 731-0) MONO x10^3 (test code 0.79 10*3/uL 0.36-1.02 = 742-7) EOS x10^3 (test code = 0.06 10*3/uL 0.06-0.53 711-2) BASO x10^3 (test code 0.03 10*3/uL 0.01-0.09 = 704-7) Lab Interpretation Abnormal (test code = 62207-9) [facility]"
[2021-10-08] MEDS ORDERED: KETOROLAC 30 MG/ML INJ ONE (09:14)
--- NOTE | 2021-10-08 09:37 | RAD REPORT ---
EXAM DESCRIPTION: RAD - Chest Single View - 10/08/2021 9:27 am CLINICAL HISTORY: TRAUMA, heavy object contacting left shoulder and neck region COMPARISON: Portable 08/19/2021 TECHNIQUE: AP portable chest image was obtained 10/08/2021 9:27 am . FINDINGS: Lungs are clear. Heart and vasculature are normal. No measurable pleural effusion and no p neumothorax. No acute bone finding identified. Clavicle is intact. Left-side SC and AC joints are nor mal. Left shoulder is mostly obscured but is reported separately. No acute aortic findings suspected. IMPRESSION: No acute cardiopulmonary process.
--- NOTE | 2021-10-08 09:38 | RAD REPORT ---
EXAM DESCRIPTION: RAD - Shoulder Left 2 View - 10/08/2021 9:27 am CLINICAL HISTORY: SMASH INJURY, blunt force trauma to the left shoulder region COMPARISON: No comparisons TECHNIQUE: Internal and external rotation views of the left shoulder were obtained. FINDINGS: There is no fracture or dislocation. AC joint is normal in appearance except for very mini mal degenerative spurring superior margin of the acromion at the AC joint. Acromial humeral joint spa ce is normal. No soft tissue calcifications. Ribs and parenchyma of the left chest unremarkable as we ll. . No acute or suspicious findings. IMPRESSION: Negative two-view left shoulder examination for acute findings.
[2021-10-08 10:09] LABS: SARS-COV-2 RT PCR NEGATIVE (NEGATIVE)
--- NOTE | 2021-10-08 10:25 | ER ---
Nurse's Notes [facility] Name: Noah Putnam Age: 50 yrs Sex: Male : 1970 Arrival Date: 10/08/2021 Time: 08:33 Bed 27 Private MD: Diagnosis: Injury of other muscles, fascia and tendons at shoulder and upper arm level Presentation: 10/08 08:40 Chief complaint: Patient states: 3 days ago a "super sack" fell onto his head/L ll1 shoulder area. Pain since. Exposed to covid and now has congestion, no appetite, fatigue for 2 days. Coronavirus screen: Vaccine status: Patient reports receiving the 1st dose of the Covid vaccine. Client denies travel out of the [place] in the last 14 days. congestion, fatigue, headache, Client presents with at least one sign or symptom that may indicate coronavirus-19. Standard/surgical mask placed on the client. Ebola Screen: Patient denies travel to an Ebola-affected area in the 21 days before illness onset. Acute neurological deficit: none identified. Initial Sepsis Screen: Does the patient meet any 2 criteria? No. Patient's initial sepsis screen is negative. Does the patient have a suspected source of infection? Yes: Productive cough/pneumonia. Risk Assessment: Do you want to hurt yourself or someone else? Patient reports no desire to harm self or others. Onset of symptoms was October 06, 2021. 08:40 Method Of Arrival: Ambulatory ll1 08:40 Acuity: BREEZY 4 ll1 Triage Assessment: 08:42 General: Appears uncomfortable, Behavior is calm, cooperative, appropriate for age. ll1 Pain: Complains of pain in L neck.shoulder Quality of pain is described as aching. EENT: Reports nasal congestion. Musculoskeletal: Reports pain in L neck/shoulder. Historical: - Allergies: 08:40 No Known Allergies; ll1 - PMHx: 08:40 Herniated disc; Hypertension; chronic kidney disease; ll1 - PSHx: 08:40 left arm surgery; ll1 - Immunization history:: Client reports receiving the 1st dose of the Covid vaccine. - Social history:: Smoking status: Patient denies any tobacco usage or history of. Screenin:58 Abuse screen: Denies threats or abuse. Denies injuries from another. Nutritional eo2 screening: No deficits noted. Tuberculosis screening: No symptoms or risk factors identified. Fall Risk None identified. Assessment: 08:58 General: Appears in no apparent distress. Behavior is calm, cooperative. Pain: eo2 Complains of pain in left neck/shoulder/arm. Neuro: Level of Consciousness is awake, alert, obeys commands, Oriented to person, place, time, situation, Reports headache x2days. Cardiovascular: Reports chest pain, with deep breathing x 2 days Denies shortness of breath, Heart tones S1 S2 Capillary refill < 3 seconds. Respiratory: Airway is patent Breath sounds are clear bilaterally. Denies shortness of breath. GI: Abdomen is non-distended, Bowel sounds present X 4 quads. Reports diarrhea, nausea, vomiting. GI: pt reports +COVID-19 exposure at work, GI symptoms onset 2 days ago. Musculoskeletal: Reports pain in left neck, arm, and shoulder, s/p "800lb super pack" that fell on pt while at work. Vital Signs: 08:40 Weight 127.01 kg; Height 6 ft. 5 in. (195.58 cm); Pain 6/10; ll1 08:43 BP 155 / 94; Pulse 72; Resp 17; Temp 99.2; Pulse Ox 96% ; Pain 6/10; eo2 10:21 Pain 5/10; eo2 10:30 BP 144 / 95; Pulse 64; Resp 15; Pulse Ox 100% ; Pain 4/10; eo2 08:40 Body Mass Index 33.20 (127.01 kg, 195.58 cm) ll1 ED Course: 08:33 Patient arrived in ED. ds1 08:40 Anders Roman MD is Attending Physician. sp3 08:40 Arm band placed on Patient placed in an exam room, on a stretcher. ll1 08:42 Triage completed. ll1 08:54 Shanita Correa, LINUS is Primary Nurse. eo2 08:58 Patient has correct armband on for positive identification. eo2 08:58 No provider procedures requiring assistance completed. eo2 09:17 COVID-19/FLU A+B (Document "Date of Onset" if Symptomatic) Sent. eo2 09:27 Shoulder Left (2 View) XRAY In Process Unspecified. EDMS 09:27 CXR XRAY In Process Unspecified. EDMS 11:02 IV discontinued, intact. eo2 Administered Medications: 09:21 Drug: Ketorolac 60 mg Route: IM; Site: left deltoid; eo2 10:21 Follow up: Pain 01/21 Adult; Response: No adverse reaction; Pain is decreased eo2 Outcome: 10:24 Discharge ordered by . jorge 11:02 Discharged to home ambulatory. eo2 11:02 Condition: stable 11:02 Discharge instructions given to patient, Instructed on discharge instructions, follow up and referral plans. medication usage, Demonstrated understanding of instructions, follow-up care, medications, Prescriptions given X 1. 11:03 Patient left the ED. eo2 Signatures: Dispatcher [employer] EDIL Deedee Tyler ds1 Lonnie Mukherjee RN RN ll1 Anders Roman MD MD sp3 Shanita Correa RN RN eo2
--- NOTE | 2021-10-08 10:25 | EDPHYS ---
Physician Documentation [facility] Name: Noah Putnam Age: 50 yrs Sex: Male : 1970 Arrival Date: 10/08/2021 Time: 08:33 Bed 27 Private MD: ED Physician Anders Roman HPI: 10/08 09:08 This 50 yrs old Black Male presents to ER via Ambulatory with complaints of Doesn't sp3 Feel Right, Neck Pain, >24Hrs Old. 09:08 50-year-old male with history of hyper tension, chronic kidney disease, prior herniated sp3 disc presents to the ED for left shoulder and trapezius area pain secondary to a "super sac" which is a heavy cycle fell off a forklift by a coworker and landed on his left shoulder after which she "fell to the ground". Patient contacted his HR and Worker's Comp. folks and they referred him to the ED for evaluation. Patient also states that he had positive COVID-19 exposure 1 to 2 days ago and now today is having generalized body aches and mild GI symptoms including diarrhea. Patient denies cough, congestion, fever, loss of taste or smell, or any other routine COVID-19 symptoms. On ROS, patient denies headache, pain on movement of the neck, chest pain, back pain, loss of bowel or bladder, numbness or tingling/neuro symptoms, or any other symptoms at this time.. Historical: - Allergies: 08:40 No Known Allergies; ll1 - PMHx: 08:40 Herniated disc; Hypertension; chronic kidney disease; ll1 - PSHx: 08:40 left arm surgery; ll1 - Immunization history:: Client reports receiving the 1st dose of the Covid vaccine. - Social history:: Smoking status: Patient denies any tobacco usage or history of. ROS: 09:09 Constitutional: Negative for fever, chills, and weight loss, Eyes: Negative for injury, sp3 pain, redness, and discharge, ENT: Negative for injury, pain, and discharge, Neck: Negative for injury, pain, and swelling, Cardiovascular: Negative for chest pain, palpitations, and edema, Respiratory: Negative for shortness of breath, cough, wheezing, and pleuritic chest pain, Skin: Negative for injury, rash, and discoloration, Neuro: Negative for headache, weakness, numbness, tingling, and seizure, Psych: Negative for depression, anxiety, suicide ideation, homicidal ideation, and hallucinations. 09:09 All other systems are negative. Exam: 09:10 Constitutional: This is a well developed, well nourished patient who is awake, alert, sp3 and in no acute distress. Head/Face: Normocephalic, atraumatic. Eyes: Pupils equal round and reactive to light, extra-ocular motions intact. Lids and lashes normal. Conjunctiva and sclera are non-icteric and not injected. Cornea within normal limits. Periorbital areas with no swelling, redness, or edema. ENT: Nares patent. No nasal discharge, no septal abnormalities noted. External auditory canals are clear. Oropharynx with no redness, swelling, or masses, exudates, or evidence of obstruction, uvula midline. Mucous membranes moist. Neck: Trachea midline, no thyromegaly or masses palpated, and no cervical lymphadenopathy. Supple, full range of motion without nuchal rigidity, or vertebral point tenderness. No Meningismus. Chest/axilla: Normal chest wall appearance and motion. Nontender with no deformity. No lesions are appreciated. Cardiovascular: Regular rate and rhythm with a normal S1 and S2. No gallops, murmurs, or rubs. Normal PMI, no JVD. No pulse deficits. Respiratory: Lungs have equal breath sounds bilaterally, clear to auscultation and percussion. No rales, rhonchi or wheezes noted. No increased work of breathing, no retractions or nasal flaring. Abdomen/GI: Soft, non-tender, with normal bowel sounds. No distension or tympany. No guarding or rebound. No evidence of tenderness throughout. Back: No spinal tenderness. No costovertebral tenderness. Full range of motion. Skin: Warm, dry with normal turgor. Normal color with no rashes, no lesions, and no evidence of cellulitis. Neuro: Awake and alert, GCS 15, oriented to person, place, time, and situation. Cranial nerves II-XII grossly intact. Motor strength 5/5 in all extremities. Sensory grossly intact. Cerebellar exam normal. Normal gait. Psych: Awake, alert, with orientation to person, place and time. Behavior, mood, and affect are within normal limits. 09:10 Musculoskeletal/extremity: Patient has pain to palpation to the left trapezius muscle extending into the lateral clavicle area. Nexus criteria negative on his neck including pain on axial load, pain on flexion and extension, midline tenderness, or any other symptoms at this time. Cardiovascular and pulmonary exams are normal. Distal exam of pulses and neurovascular exam including sensory, motor, pain and temperature, proprioception, capillary refill are all normal.. Vital Signs: 08:40 Weight 127.01 kg; Height 6 ft. 5 in. (195.58 cm); Pain 6/10; ll1 08:43 BP 155 / 94; Pulse 72; Resp 17; Temp 99.2; Pulse Ox 96% ; Pain 6/10; eo2 10:21 Pain 5/10; eo2 10:30 BP 144 / 95; Pulse 64; Resp 15; Pulse Ox 100% ; Pain 4/10; eo2 08:40 Body Mass Index 33.20 (127.01 kg, 195.58 cm) ll1 MDM: 08:40 Patient medically screened. sp3 09:12 Data reviewed: vital signs, nurses notes. ED course: 50-year-old male with Worker's sp3 Comp. related left shoulder area injury. Will get x-rays of the left shoulder and chest. Will also obtain Covid test secondary to his exposure and/or mild symptoms. At this time I do not believe patient has a fracture likely does not have a herniated disc of his cervical area. Pain is likely musculoskeletal in etiology and we will treat with anti-inflammatory and simple x-rays. If symptoms do not improve, I will defer to the Worker's Comp. physician to evaluate for possible MRI.. 10:23 ED course: X-rays are negative and Covid and flu are negative as well. Will discharge sp3 patient on diclofenac and have him follow-up with his Worker's Comp. team.. 10/08 09:06 Order name: COVID-19/FLU A+B (Document "Date of Onset" if Symptomatic); Complete Time: sp3 10:10/08 09:06 Order name: Shoulder Left (2 View) XRAY; Complete Time: : sp3 10/08 09:06 Order name: CXR XRAY; Complete Time: : sp3 Administered Medications: 09: Drug: Ketorolac 60 mg Route: IM; Site: left deltoid; eo2 10:21 Follow up: Pain / Adult; Response: No adverse reaction; Pain is decreased eo2 Disposition Summary: 10/08/21 10:24 Discharge Ordered Location: Home sp3 Condition: Stable sp3 Diagnosis - Injury of other muscles, fascia and tendons at shoulder and upper arm level sp3 Followup: sp3 - With: Private Physician - When: Upon discharge from the Emergency Department - Reason: Recheck today's complaints Discharge Instructions: - Discharge Summary Sheet sp3 - Muscle Strain sp3 Forms: - Medication Reconciliation Form sp3 - Work release form iw - School release form iw - Thank You Letter sp3 - Antibiotic Education sp3 - Prescription Opioid Use sp3 Prescriptions: - Diclofenac Sodium 75 mg Oral Tablet Sustained Release - take 1 tablet by ORAL route 2 times per day; 30 tablet; Refills: 0, Product sp3 Selection Permitted Signatures: Dispatcher [employer] EDLonnie Tipton RN RN ll1 Anders Roman MD MD sp3 Shanita Correa RN RN eo2 Corrections: (The following items were deleted from the chart) 09:12 09:10 Musculoskeletal/extremity: Patient has pain to palpation to the left trapezius sp3 muscle extending into the lateral clavicle area. Nexus criteria negative on his neck including pain on axial load, pain on flexion and extension, midline tenderness, or any other symptoms at this time. Cardiovascular and pulmonary exams are normal.. sp3
[2021-10-08 11:28] VITALS: TEMP 99.2
[2021-10-08 11:31] VITALS: BP 144/95; O2SAT 100
== END 2021-10-08 11:03 | disposition home or self-care (01) ==
LOC: ER 08:29
DX: S46.892A Other injury of other muscles, fascia and tendons at shoulder and upper arm level, left arm, initial encounter (principal); W20.8XXA Other cause of strike by thrown, projected or falling object, initial encounter; Y92.89 Other specified places as the place of occurrence of the external cause; Y99.8 Other external cause status; Z20.822 Contact with and (suspected) exposure to COVID-19; I10 Essential (primary) hypertension
CPT/HCPCS: 0240U; 71045; 73030; 96372; 99284

== ENCOUNTER 2022-01-03 08:00 | Emergency (ER) | payer OTHER, SELFPAY ==
--- OUTSIDE RECORDS SUMMARY | 2022-01-03 08:06 | XMS REPORT | Continuity of Care Document ---
:1970 Author Organization [facility] t Address [address] [place] [address] Care Team Providers Name Role Phone PCP, DOES NOT HAVE A Primary Care Physician Unavailable Carly BARRIGA, M Attending Clinician JULIÁN Attending Clinician Unavailable Coco FRENCHP, F Attending Clinician Julián HEREDIA Attending Clinician Doctor Unassigned, Name Attending Clinician Unavailable Shannon WALDROP, B Attending Clinician Yenifer ORTEGA Attending Clinician Unavailable Elliot MANAGER AUTOMOTIVE, G Attending Clinician Nurse, Pob Immunization Attending Clinician Unavailable Christopher Clarke DO Attending Clinician Elías WALDROP Attending Clinician ELÍAS Attending Clinician Unavailable Isabela BARRIGA, T Attending Clinician Unavailable Pcp, Does Not Have A Attending Clinician Aleida BUSTAMANTE R Attending Clinician Ember Siddiqui DO Attending Clinician JULIÁN Admitting Clinician Unavailable Julián HEREDIA Admitting Clinician Payers Payer Name Policy Type Policy Number Effective Date Expiration Date S ource Problems Condition Condition Condition Status Onset Resolution Last Treating Co mments Source Name Details Category Date Date Treatment Clinician Date SBO (small SBO (small Disease Active U nivers bowel bowel 2-16 ity of obstructio obstructio 00:00: [facility] n) n) 00 [facility] Obesity Obesity Disease Active Univers (BMI (BMI 2-16 ity of 30-39.9) 30-39.9) 00:00: [address] No known No known Disease Unive rs active active ity of problems problems [facility] Allergies, Adverse Reactions, Alerts Allergy Allergy Status Severity Reaction(s) Onset Inactive Treating Comm ents Source Name Type Date Date Clinician BEE DRUG Active Swelling Univers VENOM INGREDI 2-16 ity of PROTEIN 00:00: [place] (HONEY 00 Medical BEE) Branch Bee Propensi Active Swelling Univer s Venom ty to 2-16 ity of Protein adverse 00:00: [place] (Honey reaction 00 Medical Bee) s Branch NO KNOWN Drug Active Univers ALLERGIE Class ity of [facility] Social History Social Habit Start Date Stop Date Quantity Comments Source Exposure to Not sure [facility] SARS-CoV-2 [facility] (event) [place] Alcohol intake 2021-10-31 2021-10-31 Ex-drinker [facility] 00:00:00 00:00:00 (finding) [facility] Tobacco use and 2021-10-30 2021-10-30 Never used Universit y of exposure 00:00:00 00:00:[address] [facility] Sex Assigned At [address] [facility] [facility] Smoking Status Start Date Stop Date Source Never smoker [facility] Unknown if ever smoked [facility] Medications Ordered Filled Start Stop Current Ordering Indication Dosage Frequency Signature Comments Components Source Medication Medication Date Date Medication? Clinician (SIG) Name Name lisinopriL Yes 20mg 20 mg, Unive rs (PRINIVIL,Z 2-18 Oral, QHS, it y of E[place]) 03:00[place] tablet 20 00 (after Medical mg last Branch modificati on) on [place] 10/31/21 at 2100, Until Discontinu ed, Routine lisinopriL 2021- Yes [id number] 20mg Take 1 Univers 20 mg 2-18 03-21 tablet by ity of tablet 00:00: 04:59 mouth at [place] 00 :00 bedtime Medical for 30 Branch days. lisinopriL 2021- Yes [id number] 20mg Take 1 Univers 20 mg 18 03-21 tablet by ity of tablet 00:00: 04:59 mouth at [place] 00 :00 bedtime Medical for 30 Branch days. lactated 0 Yes 1000mL at 75 Univer s ringers IV 2-17 mL/hr, ity of infusion 19:00: 1,000 mL, [place] 1,000 mL 00 IV Medical Infusion, Branch CONTINUOUS , Starting on Thu10/31/21 at 1300, Until Discontinu ed, Routine amLODIPine 0 Yes 10mg 10 mg, Unive rs (NORVASC) 2-17 Oral, ity of tablet 10 15:00: DAILY, [place] mg 00 First dose Medical on Thu10/31/21 at 0900, Until Discontinu ed, Routine enoxaparin Yes 40mg 40 mg, Unive rs (LOVENOX) 2-17 Subcutaneo ity of injection 15:00: [place], [place]ILY, [place] 40 mg 00 First dose Medical on Thu [place] 10/31/21 at 0900, Until Discontinu ed, Routine lactated 2021- No 1000mL at 150 Univ ers ringers IV 10-31 02-17 mL/hr, ity of infusion 07:00: 18:45 1,000 mL, [place] 1,000 mL 00 :24 IV Medical Infusion, Branch CONTINUOUS , Starting on Thu10/31/21 at 0100, Until Thu10/31/21 at 1245, Routine lactated 0 2021- No 1000mL at 75 Unive rs ringers IV -17 02-17 mL/hr, ity of infusion 01:00: 06:52 1,000 mL, [place] 1,000 mL 00 :16 IV Medical Infusion, Branch CONTINUOUS , Starting on Thu10/30/21 at 1900, Until Thu10/31/21 at 0052, Routine morpHINE 2021- No 4mg 4 mg, Slow Un veronica injection 4 10-31-18 IV Push, ity of mg 00:43: 00:42 Q4HPRN, [place] 35 :35 Starting Medical on Thu10/30/21 at 1843, Until [place] 10/31/21 at 1842, Routine, Pain (scale 7-10) HYDROcodone 2021- Yes 1{tbl} 1 tablet, Univers -acetaminop 10-31 Oral, ity of hen (NORCO 00:43: 00:42 Q6HPRN, [place] 5) 5-325 mg 32 :32 Starting Medi amy tablet 1 on Thu Branch tablet 10/30/21 at 1843, Until 11/01/21 at 1842, Routine, Pain (scale 4-6) acetaminoph Yes 650mg 650 mg, Un veronica en 10-31 Oral, ity of (TYLENOL) 00:43: Q6HPRN, [place] tablet 650 22 Starting Medic al mg on Thu Branch 10/30/21 at 1843, Until Discontinu ed, Routine, Pain (scale 1-3) ondansetron 2021- No 4mg 4 mg, Slow Univers (ZOFRAN 10-30 IV Push, ity of (PF)) 21:15: 20:28 ONCE, 1 [place] injection 4 00 :00 dose, On Medi amy mg Thu Branch 10/30/21 at 1515, VASILIY morpHINE 2021- No 4mg 4 mg, Slow Un veronica injection 4 10-30 IV Push, ity of mg 21:15: 20:29 ONCE, 1 [place] 00 :00 dose, On Medical [facility] Branch 10/30/21 at 1515, STAT NaCl 0.9% 2021- No 1000mL at 999 Uni vers (NS) bolus 10-30 mL/hr, ity of infusion 21:15: 20:29 1,000 mL, [place] 1,000 mL 00 :00 IV Medical Infusion, Branch ONCE, 1 dose, On 10/30/21 at 1515, VASILIY iopamidol 2021- No [id number] 100mL 100 mL, Univers (ISOVUE 10-30 Intravenou ity o f 370-500 mL) 20:37: 20:35 s, ONCE, 1 [place] injection 00 :00 dose, On Medica l 100 mL [facility] Branch 2/16/22 at 1445, Routine NaCl 0.9% 2021-0 2021- No 1000mL at 999 Uni vers (NS) bolus 9-10 09-10 mL/hr, ity of infusion 03:45: 05:00 1,000 mL, [place] 1,000 mL 00 :00 IV Medical Piggyback, Branch ONCE, 1 dose, [place] 05/23/21 at 2245, STAT NaCl 0.9% 2021-0 2021- No 1000mL at [...] 500mL at 999 Univ ers (NS) bolus 05-23-09 mL/hr, 500 it y of infusion 03:15: 15:14 mL, IV [place] 500 mL 00 :00 Piggyback, Medical ONCE, 1 Branch dose, 05/22/21 at 2215, STAT NaCl 0.9% 1-0 2021- No 500mL at 999 Univ ers (NS) bolus 9- 09-09 mL/hr, 500 it y of infusion 03:15: 15:14 mL, IV [place] 500 mL 00 :00 Piggyback, Medical ONCE, 1 Branch dose, 05/22/21 at 2215, STAT dexamethaso 2020-0 2020- No 10mg 10 mg, Uni vers ne 7- 07-20 Intramuscu ity of (DECADRON 03:30: 02:47 lar, ONCE, [place] PHOSPHATE) 00 :00 1 dose, Medica l injection Mon Branch 10 mg 04/01/21 at 2230, STAT ketorolac 2020- No 60mg 60 mg, Unive rs (TORADOL) 03-18 07 Intramuscu ity of injection 04:00: 02:56 lar, ONCE, [place] 60 mg 00 :00 1 dose, Medical 03/17/21 Branch at 2300, VASILIY
Fa culty member approving Restricted medication : EMERGENCY ROOM, ibuprofen Yes [id number] 800mg Take 1 Univers 800 mg 7-04 tablet by ity of tablet 00:00: mouth [place] 00 every 8 Medical (eight) Branch hours as needed for Pain (scale 4-6). ibuprofen Yes [id number] 800mg Take 1 Univers 800 mg 7-04 tablet by ity of tablet 00:00: mouth [place] 00 every 8 Medical (eight) Branch hours as needed for Pain (scale 4-6). ibuprofen Yes [id number] 800mg Take 1 Univers 800 mg 7-04 tablet by ity of tablet 00:00: mouth [place] 00 every 8 Medical (eight) Branch hours as needed for Pain (scale 4-6). ibuprofen 0 Yes [id number] 800mg Take 1 Univers 800 mg 7-04 tablet by ity of tablet 00:00: mouth [place] 00 every 8 Medical (eight) Branch hours as needed for Pain (scale 4-6). ibuprofen 0 Yes [id number] 800mg Take 1 Univers 800 mg 7-04 tablet by ity of tablet 00:00: mouth [place] 00 every 8 Medical (eight) Branch hours as needed for Pain (scale 4-6). ibuprofen 0 Yes [id number] 800mg Take 1 Univers 800 mg 7-04 tablet by ity of tablet 00:00: mouth [place] 00 every 8 Medical (eight) Branch hours as needed for Pain (scale 4-6). ibuprofen 0 202- No [id number] 800mg Take 1 Univers 800 mg 7-04 09-09 tablet by ity of tablet 00:00: 00:00 mouth [place] 00 :00 every 8 Medical (eight) Branch hours as needed for Pain (scale 4-6). ibuprofen 2020- No [id number] 800mg Take 1 Univers 800 mg 03-17 09-09 tablet by ity of tablet 00:00: 00:00 mouth [place] 00 :00 every 8 Medical (eight) Branch hours as needed for Pain (scale 4-6). acetaminoph 2020- No [id number] 1{tbl} Take 1 U nivers en-codeine 03-17-12 tablet by ity of 300-30 mg 00:00: 04:59 mouth [place] tablet 00 :00 every 6 Medical (six) Branch hours as needed for Pain (scale 7-10) for up to 7 days. Indication s: acute pain benzonatate 2020- No 200mg 200 mg, U nivers (TESSALON 11-15 03-04 Oral, ity of [place]) 05:00: 04:51 ONCE, 1 [place] capsule 200 00 :00 dose, Wed Med ical mg 11/14/20 at Branch 2300, Routine benzonatate 0 Yes [id number] 100mg Take 1 Univers 100 mg 3-03 capsule by ity of capsule 00:00: mouth 3 00 (three) Medical times Branch daily as needed for Cough. benzonatate 2020-0 Yes [id number] 100mg Take 1 Univers 100 mg 3-03 capsule by ity of capsule 00:00: mouth 3 00 (three) Medical times Branch daily as needed for Cough. benzonatate 2020-0 Yes [id number] 100mg Take 1 Univers 100 mg 3-03 capsule by ity of capsule 00:00: mouth 3 (three) Medical times Branch daily as needed for Cough. benzonatate 0 Yes [id number] 100mg Take 1 Univers 100 mg 3-03 capsule by ity of capsule 00:00: mouth 3 00 (three) Medical times Branch daily as needed for Cough. benzonatate 2020-0 Yes [id number] 100mg Take 1 Univers 100 mg 3-03 capsule by ity of capsule 00:00: mouth 3 00 (three) Medical times Branch daily as needed for Cough. benzonatate 2020-0 Yes [id number] 100mg Take 1 Univers 100 mg 3-03 capsule by ity of capsule 00:00: mouth 3 00 (three) Medical times Branch daily as needed for Cough. benzonatate 2020- No [id number] 100mg Take 1 Univers 100 mg 305-23 capsule by ity of capsule 00:00: 00:00 mouth 3 [place] 00 :00 (three) Medical times Branch daily as needed for Cough. benzonatate 0 2020- No [id number] 100mg Take 1 Univers 100 mg 3-11 20- capsule by ity of capsule 00:00: 00:00 mouth 3 [place] 00 :00 (three) Medical times Branch daily as needed for Cough. diphenhydrA 2020- No 25mg 25 mg, Uni vers MINE 09-30 Slow IV ity of (BENADRYL) 16:00: 15:17 Push, [place] injection 00 :00 ONCE, 1 Medical 25 mg dose, [place] Branch 09/30/20 at 1000, STAT metoclopram 2020- No 10mg 10 mg, Uni vers jerilyn HCl 09-30 Slow IV ity of (REGLAN) 16:00: 15:17 Push, [place] injection 00 :00 ONCE, 1 Medical 10 mg dose, [place] Branch 09/30/20 at 1000, VASILIY NaCl 0.9% 2020- No 1000mL at 999 Uni vers (NS) bolus 09-30 mL/hr, ity of infusion 15:00: 16:45 1,000 mL, [place] 1,000 mL 00 :00 IV Medical Infusion, Branch ONCE, 1 dose, [place] 09/30/20 at 0900, VASILIY lisinopriL Yes [id number] 10mg Take 1 Univers 10 mg 1-17 tablet by ity of tablet 00:00: mouth at [place] 00 bedtime. Medical Branch amLODIPine Yes [id number] 10mg Take 1 Univers (NORVASC) 1-17 tablet by ity o f 10 mg 00:00: mouth [place] tablet 00 daily. Medical Branch lisinopriL Yes [id number] 10mg Take 1 Univers 10 mg 1-17 tablet by ity of tablet 00:00: mouth at [place] 00 bedtime. Medical Branch amLODIPine Yes [id number] 10mg Take 1 Univers (NORVASC) 1-17 tablet by ity o f 10 mg 00:00: mouth [place] tablet 00 daily. Medical Branch lisinopriL Yes [id number] 10mg Take 1 Univers 10 mg 1-17 tablet by ity of tablet 00:00: mouth at [place] 00 bedtime. Medical Branch amLODIPine Yes [id number] 10mg Take 1 Univers (NORVASC) 1-17 tablet by ity o f 10 mg 00:00: mouth [place] tablet 00 daily. Medical Branch lisinopriL Yes [id number] 10mg Take 1 Univers 10 mg 1-17 tablet by ity of tablet 00:00: mouth at [place] 00 bedtime. Medical Branch amLODIPine Yes [id number] 10mg Take 1 Univers (NORVASC) 1-17 tablet by ity o f 10 mg 00:00: mouth [place] tablet 00 daily. Medical Branch lisinopriL Yes [id number] 10mg Take 1 Univers 10 mg 1-17 tablet by ity of tablet 00:00: mouth at [place] 00 bedtime. Medical Branch amLODIPine Yes [id number] 10mg Take 1 Univers (NORVASC) 1-17 tablet by ity o f 10 mg 00:00: mouth [place] tablet 00 daily. Medical Branch lisinopriL Yes [id number] 10mg Take 1 Univers 10 mg 1-17 tablet by ity of tablet 00:00: mouth at [place] 00 bedtime. Medical Branch amLODIPine Yes [id number] 10mg Take 1 Univers (NORVASC) 1-17 tablet by ity o f 10 mg 00:00: mouth [place] tablet 00 daily. Medical Branch lisinopriL Yes [id number] 10mg Take 1 Univers 10 mg 1-17 tablet by ity of tablet 00:00: mouth at [place] 00 bedtime. Medical Branch amLODIPine Yes [id number] 10mg Take 1 Univers (NORVASC) 1-17 tablet by ity o f 10 mg 00:00: mouth [place] tablet 00 daily. Medical Branch lisinopriL Yes [id number] 10mg Take 1 Univers 10 mg 1-17 tablet by ity of tablet 00:00: mouth at [place] 00 bedtime. Medical Branch amLODIPine 2021-0 Yes [id number] 10mg Take 1 Univers (NORVASC) 1-17 tablet by ity o f 10 mg 00:00: mouth [place] tablet 00 daily. Medical Branch lisinopriL 2020-0 Yes [id number] 10mg Take 1 Univers 10 mg 1-17 tablet by ity of tablet 00:00: mouth at [place] 00 bedtime. Medical Branch amLODIPine 0 Yes [id number] 10mg Take 1 Univers (NORVASC) 1-17 tablet by ity o f 10 mg 00:00: mouth [place] tablet 00 daily. Medical Branch lisinopriL 0 Yes [id number] 10mg Take 1 Univers 10 mg 1-17 tablet by ity of tablet 00:00: mouth at [place] 00 bedtime. Medical Branch amLODIPine 0 Yes [id number] 10mg Take 1 Univers (NORVASC) 1-17 tablet by ity o f 10 mg 00:00: mouth [place] tablet 00 daily. Medical Branch amLODIPine 0 Yes [id number] 10mg Take 1 Univers (NORVASC) 1-17 tablet by ity o f 10 mg 00:00: mouth [place] tablet 00 daily. Medical Branch amLODIPine Yes [id number] 10mg Take 1 Univers (NORVASC) 1-17 tablet by ity o f 10 mg 00:00: mouth [place] tablet 00 daily. Medical Branch lisinopriL 0 Yes [id number] 10mg Take 1 Univers 10 mg 1-17 tablet by ity of tablet 00:00: mouth at [place] 00 bedtime. Medical Branch amLODIPine 0 Yes [id number] 10mg Take 1 Univers (NORVASC) 1-17 tablet by ity o f 10 mg 00:00: mouth [place] tablet 00 daily. Medical Branch lisinopriL 0 Yes [id number] 10mg Take 1 Univers 10 mg 1-17 tablet by ity of tablet 00:00: mouth at [place] 00 bedtime. Medical Branch amLODIPine 2020-0 Yes [id number] 10mg Take 1 Univers (NORVASC) 1-17 tablet by ity o f 10 mg 00:00: mouth [place] tablet 00 daily. Medical Branch lisinopriL 2020-0 Yes [id number] 10mg Take 1 Univers 10 mg 1-17 tablet by ity of tablet 00:00: mouth at [place] 00 bedtime. Medical Branch amLODIPine Yes [id number] 10mg Take 1 Univers (NORVASC) 1-17 tablet by ity o f 10 mg 00:00: mouth [place] tablet 00 daily. Medical Branch lisinopriL 0 2021- No [id number] 10mg Take 1 Univers 10 mg 1-17 02-18 tablet by ity of tablet 00:00: 00:00 mouth at [place] 00 :00 bedtime. Medical Branch maalox:diph 2019-09- No 15mL 15 mL, Uni vers enhydrAMINE 0-19 - Oral, ity of :lidocaine 03:30: 03:30 ONCE, 1 [place] 2 % viscous 00 :00 dose, [place] Med ical 1:1:1 07/01/20 [place] (FIRST-MOUT at 2230, HWASH BLM) VASILIY oral suspension 15 mL sodium 2019-09 Yes 5mL 5 mL, Univers chloride 0-19 Intravenou ity o f (NS) 03:00: s, PRN, [place] injection 5 48 Starting Medi [facility] 07/01/20 at 2200, Until Discontinu ed, Routine, IV line flushing sucralfate 2019-09 2020- No [id number] 1g Take 1 Univers 1 gram 0-18 -02 tablet by ity of tablet 00:00: 05:59 mouth [place] 00 :00 before Medical meals and Branch at bedtime for 14 days. No known No Univers medications ity of [facility] Immunizations Ordered Filled Immunization Date Status Comments [facility] e Immunization Name Name SARS-COV-2 COVID-19 2021-05-07 Completed Unive rsity of PFIZER VACCINE 00:00:00 [facility] SARS-COV-2 COVID-19 2021-05-07 Completed Unive rsity of PFIZER VACCINE 00:00:00 [facility] SARS-COV-2 COVID-19 2021-05-07 Completed Unive rsity of PFIZER VACCINE 00:00:00 [facility] SARS-COV-2 COVID-19 2021-05-07 Completed Unive rsity of PFIZER VACCINE 00:00:00 [facility] SARS-COV-2 COVID-19 2021-05-07 Completed Unive rsity of PFIZER VACCINE 00:00:00 [facility] SARS-COV-2 COVID-19 2021-05-07 Completed Unive rsity of PFIZER VACCINE 00:00:00 [facility] SARS-COV-2 COVID-19 2021-05-07 Completed Unive rsity of PFIZER VACCINE 00:00:00 [facility] SARS-COV-2 COVID-19 2021-05-07 Completed Unive rsity of PFIZER VACCINE 00:00:00 [facility] Vital Signs Vital Name Observation Time Observation Value Comments Source Systolic blood 2021-11-01 17:12:00 152 mm[Hg] Univer sity of pressure [facility] Diastolic blood 2021-11-01 17:12:00 89 mm[Hg] Unive rsity of pressure [facility] Heart rate 2021-11-01 17:12:00 72 /min Universi ty [facility] [place] [facility] Body temperature 2021-11-01 17:12:00 36.17 Cindi Univ ersity of [facility] Branch Respiratory rate 2021-11-01 17:12:00 18 /min Univ ersity of [facility] Branch Oxygen saturation in 2021-11-01 17:12:00 94 /min University of Arterial blood by [facility] Pulse oximetry Branch Body height 2021-10-30 23:19:00 195.6 cm Universi ty [facility] [place] [facility] Body weight 2021-10-30 23:19:00 116.983 kg [facility] BMI 2021-10-30 23:19:00 30.58 kg/m2 [facility] ty [facility] [place] [facility] Systolic blood 2021-05-24 06:00:00 135 mm[Hg] Univer sity of pressure [facility] Branch Diastolic blood 2021-05-24 06:00:00 97 mm[Hg] Unive rsity of pressure [facility] Heart rate 2021-05-24 06:00:00 88 /min Universi ty of [facility] Branch Respiratory rate 2021-05-24 06:00:00 21 /min Univ ersity of [place] [facility] Oxygen saturation in 2021-05-24 06:00:00 94 /min University of Arterial blood by [facility] Pulse oximetry Branch Body temperature 2021-05-24 01:47:00 37.28 Cindi Univ ersity of [place] [facility] Body height 2021-05-24 01:47:00 195.6 cm Universi ty of [place] [facility] Body weight 2021-05-24 01:47:00 127.461 kg Universi ty of [place] [facility] BMI 2021-05-24 01:47:00 33.32 kg/m2 Universi ty of [place] [facility] Systolic blood 2021-05-22 23:36:00 154 mm[Hg] Univer sity of pressure [place] [facility] Diastolic blood 2021-05-22 23:36:00 112 mm[Hg] Unive rsity of pressure [place] [facility] Heart rate 2021-05-22 23:36:00 97 /min Universi ty of [place] [facility] Body temperature 2021-05-22 23:36:00 36 Cindi Univ ersity of [place] [facility] Respiratory rate 2021-05-22 23:36:00 19 /min Univ ersity of [place] [facility] Body height 2021-05-22 23:36:00 195.6 cm Universi ty of [place] [facility] Body weight 2021-05-22 23:36:00 127.007 kg Universi ty of [place] [facility] BMI 2021-05-22 23:36:00 33.20 kg/m2 Universi ty of [place] [facility] Oxygen saturation in 2021-05-22 23:36:00 96 /min University of Arterial blood by [employer] [facility] Pulse oximetry Branch Systolic blood 2021-05-02 00:01:00 157 mm[Hg] Univer sity of pressure [place] [facility] Diastolic blood 2021-05-02 00:01:00 93 mm[Hg] Unive rsity of pressure [place] [facility] Heart rate 2021-05-02 00:01:00 84 /min Universi ty of [place] [facility] Body temperature 2021-05-02 00:01:00 36.56 Cindi Univ ersity of [place] [facility] Respiratory rate 2021-05-02 00:01:00 18 /min Univ ersity of [place] [facility] Body weight 2021-05-02 00:01:00 126.554 kg Universi ty of [place] [facility] BMI 2021-05-02 00:01:00 33.08 kg/m2 Universi ty of [place] [facility] Oxygen saturation in 2021-05-02 00:01:00 97 /min University of Arterial blood by [employer] [facility] Pulse oximetry Branch Systolic blood 2021-04-02 01:01:00 144 mm[Hg] Univer sity of pressure [place] [facility] Diastolic blood 2021-04-02 01:01:00 94 mm[Hg] Unive rsity of pressure [place] [facility] Heart rate 2021-04-02 01:01:00 89 /min Universi ty of [place] [facility] Body temperature 2021-04-02 01:01:00 37.06 Cindi Univ ersity of [place] [facility] Respiratory rate 2021-04-02 01:01:00 18 /min Univ ersity of [place] [facility] Body weight 2021-04-02 01:01:00 129.729 kg Universi ty of [place] [facility] BMI 2021-04-02 01:01:00 33.91 kg/m2 Universi ty of [place] [facility] Oxygen saturation in 2021-04-02 01:01:00 100 /min University of Arterial blood by [facility] amy Pulse oximetry Branch Systolic blood 2021-04-02 01:01:00 144 mm[Hg] Univer sity of pressure [place] [facility] Diastolic blood 2021-04-02 01:01:00 94 mm[Hg] Unive rsity of pressure [place] [facility] Heart rate 2021-04-02 01:01:00 89 /min Universi ty of [place] [facility] Body temperature 2021-04-02 01:01:00 37.06 Cindi Univ ersity of [place] [facility] Respiratory rate 2021-04-02 01:01:00 18 /min Univ ersity of [place] [facility] Body weight 2021-04-02 01:01:00 129.729 kg Universi ty of [place] [facility] BMI 2021-04-02 01:01:00 33.91 kg/m2 Universi ty of [place] [facility] Oxygen saturation in 2021-04-02 01:01:00 100 /min University of Arterial blood by [facility] amy Pulse oximetry Branch Systolic blood 2021-03-18 03:16:13 140 mm[Hg] Univer sity of pressure [place] [facility] Diastolic blood 2021-03-18 03:16:13 80 mm[Hg] Unive rsity of pressure [place] [facility] Heart rate 2021-03-18 03:16:13 80 /min Universi ty of [place] [facility] Body temperature 2021-03-18 03:16:13 36.67 Cindi Univ ersity of [place] [facility] Respiratory rate 2021-03-18 03:16:13 19 /min Univ ersity of [place] [facility] Oxygen saturation in 2021-03-18 03:16:13 99 /min University of Arterial blood by [facility] Pulse oximetry Branch Body weight 2021-03-18 01:02:00 129.729 kg Universi ty of [place] [facility] BMI 2021-03-18 01:02:00 33.91 kg/m2 Universi ty of [place] [facility] Systolic blood 2021-03-18 03:16:13 140 mm[Hg] Univer sity of pressure [place] [facility] Diastolic blood 2021-03-18 03:16:13 80 mm[Hg] Unive rsity of pressure [place] [facility] Heart rate 2021-03-18 03:16:13 80 /min Universi ty of [place] [facility] Body temperature 2021-03-18 03:16:13 36.67 Cindi Univ ersity of [place] [facility] Respiratory rate 2021-03-18 03:16:13 19 /min Univ ersity of [place] [facility] Oxygen saturation in 2021-03-18 03:16:13 99 /min University of Arterial blood by [facility] Pulse oximetry Branch Body weight 2021-03-18 01:02:00 129.729 kg Universi ty of [place] [facility] BMI 2021-03-18 01:02:00 33.91 kg/m2 Universi ty of [place] [facility] Oxygen saturation in 2020-11-15 04:31:00 97 /min University of Arterial blood by [facility] Pulse oximetry Branch Systolic blood 2020-11-15 03:25:00 173 mm[Hg] Univer sity of pressure [place] [facility] Diastolic blood 2020-11-15 03:25:00 97 mm[Hg] Unive rsity of pressure [place] [facility] Heart rate 2020-11-15 03:25:00 84 /min Universi ty of [place] [facility] Body temperature 2020-11-15 03:25:00 36.67 Cindi Univ ersity of [place] [facility] Respiratory rate 2020-11-15 03:25:00 20 /min Univ ersity of [place] [facility] Body weight 2020-11-15 03:25:00 132.45 kg Universi ty of [place] [facility] BMI 2020-11-15 03:25:00 34.63 kg/m2 Universi ty of [place] [facility] Oxygen saturation in 2020-11-15 04:31:00 97 /min University of Arterial blood by [facility] amy Pulse oximetry Branch Systolic blood 2020-11-15 03:25:00 173 mm[Hg] Univer sity of pressure [place] [facility] Diastolic blood 2020-11-15 03:25:00 97 mm[Hg] Unive rsity of pressure [place] [facility] Heart rate 2020-11-15 03:25:00 84 /min Universi ty of [place] [facility] Body temperature 2020-11-15 03:25:00 36.67 Cindi [facility] Respiratory rate 2020-11-15 03:25:00 20 /min [facility] Body weight 2020-11-15 03:25:00 132.45 kg [facility] BMI 2020-11-15 03:25:00 34.63 kg/m2 [facility] Systolic blood 2020-09-30 16:30:00 121 mm[Hg] [facility] Diastolic blood 2020-09-30 16:30:00 66 mm[Hg] [facility] Heart rate 2020-09-30 16:30:00 72 /min [facility] Respiratory rate 2020-09-30 16:30:00 19 /min [facility] Oxygen saturation in 2020-09-30 16:30:00 94 /min [facility] Arterial blood by [facility] Pulse oximetry Branch Body weight 2020-09-30 14:20:00 136.079 kg [facility] BMI 2020-09-30 14:20:00 35.57 kg/m2 [facility] Body temperature 2020-09-30 14:10:00 37.06 Cindi [facility] Systolic blood 2020-09-30 16:30:00 121 mm[Hg] [facility] Diastolic blood 2020-09-30 16:30:00 66 mm[Hg] [facility] Heart rate 2020-09-30 16:30:00 72 /min [facility] Respiratory rate 2020-09-30 16:30:00 19 /min [facility] Oxygen saturation in 2020-09-30 16:30:00 94 /min [facility] Arterial blood by [facility] amy Pulse oximetry Branch Body weight 2020-09-30 14:20:00 136.079 kg [facility] BMI 2020-09-30 14:20:00 35.57 kg/m2 [facility] Body temperature 2020-09-30 14:10:00 37.06 Cindi [facility] Systolic blood 2020-07-02 04:00:00 132 mm[Hg] [facility] Diastolic blood 2020-07-02 04:00:00 84 mm[Hg] [facility] Heart rate 2020-07-02 04:00:00 89 /min [facility] Oxygen saturation in 2020-07-02 04:00:00 95 /min [facility] Arterial blood by [facility] Pulse oximetry Branch Body temperature 2020-07-02 02:53:00 36.94 Cindi [facility] Respiratory rate 2020-07-02 02:53:00 18 /min [facility] Body height 2020-07-02 02:53:00 195.6 cm [facility] Body weight 2020-07-02 02:53:00 136.079 kg [facility] BMI 2020-07-02 02:53:00 35.57 kg/m2 [facility] Systolic blood 2020-07-02 04:00:00 132 mm[Hg] [facility] Diastolic blood 2020-07-02 04:00:00 84 mm[Hg] [facility] Heart rate 2020-07-02 04:00:00 89 /min [facility] Oxygen saturation in 2020-07-02 04:00:00 95 /min [facility] Arterial blood by [facility] amy Pulse oximetry Branch Body temperature 2020-07-02 02:53:00 36.94 Cindi [facility] Respiratory rate 2020-07-02 02:53:00 18 /min [facility] Body height 2020-07-02 02:53:00 195.6 cm [facility] Body weight 2020-07-02 02:53:00 136.079 kg [facility] BMI 2020-07-02 02:53:00 35.57 kg/m2 [facility] Procedures Procedure Date / Time Performing Clinician Source Performed PHOSPHORUS 2021-11-01 09:55:00 Darshan [facility] MAGNESIUM 2021-11-01 09:55:00 Darshan [facility] BASIC METABOLIC PANEL 2021-11-01 09:55:00 Darshan [facility] (NA, K, CL, CO2, GLUCOSE, Medica l Branch BUN, CREATININE, CA) CBC WITH DIFF 2021-11-01 09:55:00 Darshan [facility] PHOSPHORUS 2021-10-31 08:45:00 [facility] CREATINE KINASE 2021-10-31 08:45:00 [facility] MAGNESIUM 2021-10-31 08:45:00 Julián [facility] TROPONIN I 2021-10-31 08:45:00 [facility] COMP. METABOLIC PANEL 2021-10-31 08:45:00 Leela greg [facility] ([id number]) [facility] CBC WITH DIFF 2021-10-31 08:45:00 Julián [facility] PROTHROMBIN TIME / INR 2021-10-31 08:45:00 Roxanne Swenson [facility] N-TERMINAL PRO-BNP 2021-10-31 08:45:00 Roxanne Swenson [facility] LACTIC ACID WHOLE BLOOD 2021-10-31 08:45:00 Roxanne Swenson [facility] FECES CULTURE 2021-10-30 22:27:00 Monica Hernandez [facility] OCCULT (GUAIAC) BLOOD 2021-10-30 22:27:00 Monica Hernandez [facility] CLOSTRIDIUM DIFFICILE 2021-10-30 22:27:00 Monica Hernandez [facility] COVID-19 (ID NOW RAPID 2021-10-30 21:24:00 [facility] Branch LAB ONLY COVID 2021-10-30 21:24:00 Madison Sepulveda [facility] INTERPRETATION [facility] CT ABDOMEN PELVIS W 2021-10-30 20:44:09 Madison Sepulveda [facility] CONTRAST Medical Branch LIPASE 2021-10-30 20:25:00 Madison Sepulveda [facility] TROPONIN I 2021-10-30 20:25:00 Roxanne Swenson [facility] COMP. METABOLIC PANEL 2021-10-30 20:25:00 Madison Sepulveda [facility] ([id number]) [facility] CBC WITH DIFF 2021-10-30 20:25:00 Madison Sepulveda [facility] URINALYSIS 2021-10-30 20:25:00 Madison Sepulevda [facility] N-TERMINAL PRO-BNP 2021-10-30 20:25:00 Roxanne Swenson [facility] CONSENT/REFUSAL FOR 2021-10-30 19:24:05 Doctor Unassigned, [facility] DIAGNOSIS AND TREATMENT [facility] CREATINE KINASE 2021-05-24 04:40:00 Felipe Ortega [facility] BASIC METABOLIC PANEL 2021-05-24 04:40:00 Felipe Ortega [facility] (NA, K, CL, CO2, GLUCOSE, Medica l Branch BUN, CREATININE, CA) URINALYSIS 2021-05-24 02:14:00 Felipe Ortega [facility] CREATINE KINASE 2021-05-24 01:53:00 Felipe Ortega [facility] TROPONIN I 2021-05-24 01:53:00 Felipe Ortega [facility] COMP. METABOLIC PANEL 2021-05-24 01:53:00 Felipe Ortega [facility] ([id number]) Medical Branch CBC WITH DIFF 2021-05-24 01:53:00 Felipe Ortega [facility] N-TERMINAL PRO-BNP 2021-05-24 01:53:00 Felipe Ortega [facility] Medical Branch ASSIGNMENT OF BENEFITS 2021-05-23 00:46:04 [facility] CONSENT/REFUSAL FOR 2021-05-22 23:31:57 Doctor Andrea, [facility] DIAGNOSIS AND TREATMENT [facility] SARS-COV-2 COVID-19 2021-05-07 16:12:40 Doctor Andrea [facility] VACCINE,0.3ML,IM (PFIZER) [facility] RAPID STREP SCREEN FOR 2021-05-02 00:07:00 Julian Matos [facility] GROUP A Medical Branch COVID-19 (ID NOW RAPID 2021-05-02 00:07:00 Julian Matos [facility] TESTING) Medical Branch CONSENT/REFUSAL FOR 2021-05-01 23:56:07 Doctor Andrea [facility] DIAGNOSIS AND TREATMENT [place] [place] RAPID STREP SCREEN FOR 2021-04-02 01:05:00 Nikhil Mckinley [facility] GROUP A Medical Branch COVID-19 (ID NOW RAPID 2021-04-02 01:05:00 Nikhil Mckinley [facility] TESTING) Medical Branch NOTICE OF PRIVACY 2021-04-02 00:56:18 Doctor Andrea [facility] PRACTICES [facility] CONSENT/REFUSAL FOR 2021-04-02 00:49:05 Doctor Andrea [facility] DIAGNOSIS AND TREATMENT [facility] XR WRIST 3+ VW LEFT 2021-03-18 01:19:59 Nikhil Mckinley [facility] URINALYSIS 2021-03-18 01:12:00 Nikhil Mckinley [facility] CONSENT/REFUSAL FOR 2021-03-18 00:56:01 Doctor Andrea [facility] DIAGNOSIS AND TREATMENT [facility] XR CHEST 1 VW 2020-11-15 03:48:28 Darnell Hsu [facility] CONSENT/REFUSAL FOR 2020-11-15 03:11:27 Doctor Andrea [facility] DIAGNOSIS AND TREATMENT [place] [facility] CT HEAD WO CONTRAST 2020-09-30 15:00:43 Jessy Siddiqui [facility] XR CHEST 1 VW 2020-09-30 14:37:13 Jessy Siddiqui [facility] LIPASE 2020-09-30 14:25:00 Jessy Siddiqui [facility] TROPONIN I 2020-09-30 14:25:00 Jessy Siddiqui [facility] COMP. METABOLIC PANEL 2020-09-30 14:25:00 Jessy Siddiqui [facility] ([id number]) [facility] CBC WITH DIFF 2020-09-30 14:25:00 Jessy Siddiqui [facility] N-TERMINAL PRO-BNP 2020-09-30 14:25:00 Jessy Siddiqui [facility] NOTICE OF PRIVACY 2020-09-30 13:57:13 Doctor Andrea, [facility] PRACTICES [place] [facility] CONSENT/REFUSAL FOR 2020-09-30 13:55:57 Doctor Mendez [facility] 2020-07-02 03:20:42 Felipe Ortega [facility] LIPASE 2020-07-02 03:05:00 Juan Orantes [facility] TROPONIN I 2020-07-02 03:05:00 Felipe Ortega [facility] COMP. METABOLIC PANEL 2020-07-02 03:05:00 Juan Orantes [facility] ([id number]) [facility] CBC WITH DIFF 2020-07-02 03:05:00 Juan Orantes [facility] NOTICE OF PRIVACY 2020-07-02 02:48:43 Doctor Andrea [facility] PRACTICES [place] [facility] CONSENT/REFUSAL FOR 2020-07-02 02:46:14 Doctor Mendez [facility]IS [facility] Encounters Start End Encounter Admission Attending Care Care Encounter Source Date/Time Date/Time Type Type Clinicians Facility Department ID 2021-07-14 Emergency X [facility] [id number] Univers 03:01:[address] [facility] 2021-11-04 2021-11-04 Transition Carly BRUNOChayo 1.2.840.114 [id number] Univers 00:00:00 00:00:00 of Care Ellen MOORE [id number] i [place] [id number] [facility] 403 Branch 2021-10-30 2021-11-01 Inpatient X JULIÁN [facility] MARTI [id number] Univers 13:39:00 13:45:[address] [facility] 2021-10-30 2021-11-01 [facility] Coco Madison Tripathi [facility] 1.2.8 40.114 [id number] Univers 13:39:00 13:45:00 Encounter Emelia Huizar [id number] [id number] [id number] [facility] 081 Branch 2021-10-30 2021-10-30 Orders Doctor KARL 1.2.840.114 [id number] Univers 00:00:00 00:00:00 Only Unassigned, EVE [id number] ity of [place] [facility] 4.2.7.2.686 [place] [id number] [facility] 009 Branch 2021-05-23 2021-05-24 Emergency [facility] 1.2.840.114 [id number] Univers 20:42:00 01:42:00 Felipe Krueger [id number] [place] [id number] [facility] 084 Branch 2021-05-23 2021-05-23 Emergency X [facility] ERT [id number] Univers 20:42:00 20:42:[address] [facility] 2021-05-22 2021-05-22 [facility] [id number] Univers 18:37:00 21:40:00 Gabriella Krueger [id number] ity of [place] 4.2.7.2.686 [facility] [id number] [address] 2021-05-22 2021-05-22 Emergency X [facility] ERT [id number] Univers 18:31:00 18:31:00 ity [facility] 2021-05-07 2021-05-07 Imm/Inj Nurse, Adc Pob Immunization [facility] 1.2.840.114 [id number] Univers 11:11:35 11:11:42 Visit David Clarke 350.1.13 .10 ity of [place] [address] [place] [address] Professio [id number] Ga dical [address] 2021-05-01 2021-05-01 Emergency Mckinley, [facility] 1.2.840.114 [id number] Univers 19:09:00 20:46:00 Nikhilberhane Krueger [id number] i ty of [place] 4.[address].7.[address] [place] [id number] 2021-05-01 2021-05-01 Emergency X [facility] ERT [id number] Univers 18:53:00 18:53:00 ity [facility] 2021-04-01 2021-04-01 Emergency Mckinley, [facility] 1.2.840.114 [id number] 20:06:00 21:56:00 Nikhil Pati [id number] [place] 4.2.7.2.686 [place] [id number] [facility] 2021-04-01 2021-04-01 Emergency Mckinley, [facility] 1.2.840.114 [id number] Univers 20:06:00 21:56:00 Nikhil [place] 350.1.13.10 i ty of [place] [address] [place] [id number] 2021-04-01 2021-04-01 Emergency X MCKINLEY, [facility] ERT [id number] Univers 20:06:00 20:06:00 NIKHIL ity [facility] 2021-03-17 2021-03-17 Emergency Mckinley, [facility] 1.2.840.114 [id number] 20:09:00 22:19:00 Nikhil Krueger 350.1.13.10 [place] 4.2.7.2.686 [place] [id number] 084 2021-03-17 2021-03-17 Emergency [facility] 1.2.840.114 [id number] Univers 20:09:00 22:19:00 Nikhil Krueger 350.1.13.10 i ty of [place] 4.2.7.2.686 [facility] [id number] [place] 554894 Branch 2021-03-17 2021-03-17 Emergency X [facility] ERT [id number] Univers 19:56:00 19:56:[address] [facility] 2020-11-15 2020-11-15 Letter KARL Mar 1.2.840.114 [id number] Univers 00:00:00 00:00:00 (Out) Mirna PRADO 350.1.13.10 it y of HOSPITAL 4.2.7.2.686 [place] [id number] [address] 2020-11-15 2020-11-15 Telephone KARL Laurent.[id number] Univers 00:00:00 00:00:00 Patient EVE 350.1.13.10 it y of [place] Not HOSP[place] [id number] [address] 2020-11-15 2020-11-15 Telephone KARL Laurent 1.2.814.042 [id number] 00:00:00 00:00:00 Patient EVE 350.1.13.10 Does Not HOSPITAL 4.2.7.2.686 Have A [id number] 2020-11-15 2020-11-15 KARL Vega 1.2.840.114 [id number] 00:00:00 00:00:00 (Out) Mirna PRADO 350.1.13.10 HOSPITAL 4.2.7.2.686 [id number] [id number] 2020-11-14 2020-11-14 Emergency [facility] 1.2.305.165 [id number] Univers 21:29:00 22:55:00 Darnell Krueger 350.1.13.10 i ty of [place] 4.2.7.2.686 [facility] [id number] [facility] 084 [place] 2020-11-14 2020-11-14 Emergency [facility] 1.2.465.509 [id number] 21:29:00 22:55:00 Darnell Krueger 350.1.13.10 [place] 4.2.7.2.686 [place] [id number] 2020-09-30 2020-09-30 Emergency [facility] 1.2.840.[id number] [facility] 08:03:00 10:45:00 Jessy Krueger 350.1.13.10 ity of [place] 4.2.7.2.686 [facility] [id number] [address] 2020-09-30 2020-09-30 Emergency [facility] 1.2.840.114 [id number] 08:03:00 10:45:00 Jessy Krueger 350.1.13.[address] [place] [address] [place] [address] [id number] [facility] 2020-09-30 2020-09-30 Emergency X [facility] ERT [id number] Univers 07:58:00 07:58:[address] [facility] 2020-09-30 2020-09-30 Orders Doctor BARAJAS 1.2.840.114 [id number] Univers 00:00:00 00:00:00 Only Unassigned, EVE 350.1.13.10 ity of [place] [facility] 4.2.7.2.686 [facility] [id number] [place] [address] Branch 2020-09-30 2020-09-30 Orders Doctor BARAJAS 1.2.840.114 [id number] 00:00:00 00:00:00 Only UnassignedEVE 350.1.13.10 [place] [facility] 4.2.7.2.686 [id number] 2020-07-01 2020-07-01 Emergency [facility] 1.2.840.[id number] [facility] 21:58:00 23:54:00 Felipechanda Krueger 350.1.13.10 i ty of [place] 4.2.7.2.686 [facility] [id number] [address] 2020-07-01 2020-07-01 Emergency Shannon, [facility] 1.2.840.114 [id number] 21:58:00 23:54:00 Felipe Krueger 350.1.13.10 [place] 4.2.7.2.686 [place] [id number] [facility] 2020-07-01 2020-07-01 Emergency X SHANNON, [facility] ERT [id number] Univers 21:58:00 21:58:00 FELIPE ity [facility] Results Test Description Test Time Test Comments Results Result Comments Source BASIC METABOLIC PANEL (NA, K, CL, CO2, GLUCOSE, BUN, 2021-10 10:40:12 CREATININE, CA) Test Item Value Reference Range Interpretation Comme nts NA (test code = 8567376683) 136 mmol/L 135-145 K (test code = 2630751126) 4.2 mmol/L 3.5-5.0 CL (test code = 0663901768) 104 mmol/L 98-108 CO2 TOTAL (test code = 0711905474) 31 mmol/L 23-31 AGAP (test code = 9432119921) 2-16 L BUN (test code = 3689913611) 15 mg/dL 7-23 GLUCOSE (test code = 7274122238) 91 mg/dL 70-110 CREATININE (test code = 0.96 mg/dL 0.60-1.25 1412745688) CALCIUM (test code = 9505103687) 8.5 mg/dL 8.6-10.6 L eGFR (test code = 7510089657) mL/min/1.73m2 KRYSTLE (test code = KRYSTLE) Association of Glomerular Filtration Rate (GFR) and Staging of Kidney Disease* + +-------- + ------+| GFR (mL/min/1.73 m2) ?| With Kidney Damage ?| ?Without Kidney Damage+ +-- + +| ?>90 ?| ?Stage one ?| ? Normal ?+ +------- + -------+| ?60-89 ?| ?Stage two ?| ? Decreased GFR ? + +-------- + ------+| ?30-59 ?| ?Stage three ?| ? Stage three ? + +-------- + ------+| ?15-29 ?| ?Stage four ? | ? Stage four ?+ +------- + -------+| ?<15 (or dialysis) ? ?| ?Stage five ? | ? Stage five ?+ +------- + -------+ *Each stage assumes the associated GFR [...] or abnormalities in imaging tests). Lab Interpretation (test code = Abnormal 47951-0) [facility] 10:40:12 Test Item Value Reference Range Interpretation Comments MAGNESIUM (test code = 0864986293) 1.7 mg/dL 1.7-2.4 Lab Interpretation (test code = Normal 56926-3) [facility] 10:39:52 Test Item Value Reference Range Interpretation Comments PHOSPHORUS (test code = 6446798333) 4.4 mg/dL 2.5-5.0 Lab Interpretation (test code = Normal 42048-4) [facility] [id number] 10:25:11 Test Item Value Reference Range Interpretation Comments WBC (test code = See_Comment [Automated 2890-2) message] The sy stem which generated this result transmitted reference range : 4.20 - 10.70 10*3/?L. The reference range was not used to interpret this result as normal/abnormal . RBC (test code = See_Comment [Automated 257-8) message] The sy stem which generated this result transmitted reference range : 4.26 - 5.52 10*6/?L. The reference range was not used to interpret this result as normal/abnormal . HGB (test code = 14.8 g/dL 12.2-16.4 718-7) HCT (test code = 43.1 % 38.4-49.3 4544-3) MCV (test code = 86.0 fL 81.7-95.6 787-2) MCH (test code = 29.5 pg 26.1-32.7 785-6) MCHC (test code = 34.3 g/dL 31.2-35.0 786-4) RDW-SD (test code = 38.5 fL 38.5-51.6 50214-1) RDW-CV (test code = 12.3 % 12.1-15.4 788-0) PLT (test code = See_Comment [Automated 777-3) message] The sy stem which generated this result transmitted reference range : 150 - 328 10*3/ ?L. The reference r andrea was not used to interpret this result as normal/abnormal . MPV (test code = 9.6 fL 9.8-13.0 L 42128-6) NRBC/100 WBC (test See_Comment [Automat ed code = 3410154912) message] The system which generated this result transmitted reference range : 0.0 - 10.0 /100 WBCs. The refer ence range was not u sed to interpret th is result as normal/abnormal . NRBC x10^3 (test code <0.01 See_Comment [Auto mated = 6443222378) message] The s ystem which generated this result transmitted reference range : 10*3/?L. The reference range was not used to interpret this result as normal/abnormal . GRAN MAT (NEUT) % 49.5 % (test code = 770-8) IMM GRAN % (test code 0.30 % = 2633520612) LYMPH % (test code = 39.4 % 736-9) MONO % (test code = 9.7 % 5905-5) EOS % (test code = 0.8 % 713-8) BASO % (test code = 0.3 % 706-2) GRAN MAT x10^3(ANC) 3.13 10*3/uL 1.99-6.95 (test code = 8932952941) IMM GRAN x10^3 (test <0.03 0.00-0.06 code = 8227825139) LYMPH x10^3 (test code 2.49 10*3/uL 1.09-3.23 = 731-0) MONO x10^3 (test code 0.61 10*3/uL 0.36-1.02 = 742-7) EOS x10^3 (test code = 0.05 10*3/uL 0.06-0.53 L 711-2) BASO x10^3 (test code <0.03 0.01-0.09 = 704-7) Lab Interpretation Abnormal (test code = 28848-4) [facility] [id number] 17:32:56 Test Item Value Reference Range Interpretation Comments NT-proBNP (test code 13 pg/mL See_Comment [Autom ated = 3823725851) message] The system which generated this result transmitted reference range : <=125. The reference range was not used to interpret this result as normal/abnormal . KRYSTLE (test code = KRYSTLE) Biotin has been reported to cause a negative bias, interpret results relative to patient's use of biotin. Lab Interpretation Normal (test code = 07926-2) [facility] [id number] 10:50:49 Test Item Value Reference Range Interpretation Comments NT-proBNP (test code <11 See_Comment [Autom ated = 3793661377) message] The system which generated this result transmitted reference range : <=125 pg/mL. Th e reference range was not used to interpret this result as normal/abnormal . KRYSTLE (test code = KRYSTLE) Biotin has been reported to cause a negative bias, interpret results relative to patient's use of biotin. Lab Interpretation Normal (test code = 87038-1) [facility] [id number] 10:36:56 Test Item Value Reference Interpretation Comments Range TROPONIN I (test 0.004 ng/mL See_Comment [Automated code = 0196601554) message] The system which generated this result [...] biotin. Lab Interpretation Normal (test code = 61876-9) [facility]. METABOLIC PANEL (38887)2021-10-31 10:33:50 Test Item Value Reference Range Interpretation Comments NA (test code = 139 mmol/L 135-145 0467115002) K (test code = 4.0 mmol/L 3.5-5.0 4810781177) CL (test code = 109 mmol/L 98-108 H 2106325500) CO2 TOTAL (test code = 27 mmol/L 23-31 7165357168) AGAP (test code = 2-16 0198041088) BUN (test code = 16 mg/dL 7-23 3832323247) GLUCOSE (test code = 97 mg/dL 70-110 6923201305) CREATININE (test code = 1.00 mg/dL 0.60-1.25 5601276251) TOTAL BILI (test code = 1.0 mg/dL 0.1-1.7 5196573167) CALCIUM (test code = 8.7 mg/dL 8.6-10.6 4175818386) T PROTEIN (test code = 7.9 g/dL 6.3-8.2 5485228243) ALBUMIN (test code = 4.4 g/dL 3.5-5.0 4344847317) ALK PHOS (test code = 60 U/L 34-122 0624000629) ALTv (test code = 56 U/L 5-50 H 1742-6) AST(SGOT) (test code = 49 U/L 13-40 H 1592597666) eGFR (test code = mL/min/1.73m2 1997401371) KRYSTLE (test code = KRYSTLE) Association of [...] tests). Lab Interpretation Abnormal (test code = 46687-2) [facility] Worth[facility] [id number] 10:25:32 Test Item Value Reference Range Interpretation Comments MAGNESIUM (test code = 1041546000) 1.8 mg/dL 1.7-2.4 Lab Interpretation (test code = Normal 77202-7) [facility]17 10:25:12 Test Item Value Reference Range Interpretation Comments PHOSPHORUS (test code = 2454328693) 3.9 mg/dL 2.5-5.0 Lab Interpretation (test code = Normal 46397-3) [facility] [id number] 10:24:52 Test Item Value Reference Range Interpretation Comments CK (test code = 1425671701) 215 U/L 33-194 H Lab Interpretation (test code = Abnormal 03870-2) [facility] [facility] [id number] 10:18:09 Test Item Value Reference Range Interpretation Comments [...] as normal/abnormal . HGB (test code = 15.4 g/dL 12.2-16.4 718-7) HCT (test code = 45.4 % 38.4-49.3 4544-3) MCV (test code = 87.5 fL 81.7-95.6 787-2) MCH (test code = 29.7 pg 26.1-32.7 785-6) MCHC (test code = 33.9 g/dL 31.2-35.0 786-4) RDW-SD (test code = 41.3 fL 38.5-51.6 06515-2) RDW-CV (test code = 13.0 % 12.1-15.4 788-0) PLT (test code = See_Comment [Automated 777-3) message] The sy stem which generated this result transmitted reference range : 150 - 328 10*3/ ?L. The reference r andrea was not used to interpret this result as normal/abnormal . MPV (test code = 10.0 fL 9.8-13.0 06103-6) NRBC/100 WBC (test See_Comment [Automat ed code = 0406673432) message] The system which generated this result transmitted reference range : 0.0 - 10.0 /100 WBCs. The refer ence range was not u sed to interpret th is result as normal/abnormal . NRBC x10^3 (test code <0.01 See_Comment [Auto mated = 3633442872) message] The s ystem which generated this result transmitted reference range : 10*3/?L. The reference range was not used to interpret this result as normal/abnormal . GRAN MAT (NEUT) % 46.4 % (test code = 770-8) IMM GRAN % (test code 0.20 % = 8677319179) LYMPH % (test code = 44.0 % 736-9) MONO % (test code = 8.3 % 5905-5) EOS % (test code = 0.7 % 713-8) BASO % (test code = 0.4 % 706-2) GRAN MAT x10^3(ANC) 3.73 10*3/uL 1.99-6.95 (test code = 8250172647) IMM GRAN x10^3 (test <0.03 0.00-0.06 code = 5060390366) LYMPH x10^3 (test code 3.55 10*3/uL 1.09-3.23 H = 731-0) MONO x10^3 (test code 0.67 10*3/uL 0.36-1.02 = 742-7) EOS x10^3 (test code = 0.06 10*3/uL 0.06-0.53 711-2) BASO x10^3 (test code 0.03 10*3/uL 0.01-0.09 = 704-7) Lab Interpretation Abnormal (test code = 55089-4) [facility] / [id number] 10:18:09 Test Item Value Reference Range Interpretation Comments PROTIME PATIENT (test See_Comment [Auto mated message] code = 5964-2) The system wh ich generated this result transmitted ref erence range: 12.0 - 1 4.7 Seconds. The re ference range was not u sed to interpret this result as normal/abnor mal. INR (test code = 6301-6) Nor mal INR <1.1; Warfarin Therap eutic range 2.0 to 3. 0 or 2.5 to 3.5, dep ending upon the indica tions. Lab Interpretation (test Normal code = 48880-7) [facility] Worth[facility] [id number] 07:43:50 Test Item Value Reference Interpretation Comments Range TROPONIN I (test 0.005 ng/mL See_Comment [Automated code = 6801971674) message] The system which generated this result [...] biotin. Lab Interpretation Normal (test code = 43054-8) [facility]. METABOLIC PANEL (17992)2021-10-30 20:56:25 Test Item Value Reference Range Interpretation Comments NA (test code = 139 mmol/L 135-145 4280060338) K (test code = 4.8 mmol/L 3.5-5.0 3177289283) CL (test code = 105 mmol/L 98-108 0615689106) CO2 TOTAL (test code = 26 mmol/L 23-31 4315227467) AGAP (test code = 2-16 7183326174) BUN (test code = 18 mg/dL 7-23 2423627144) GLUCOSE (test code = 135 mg/dL 70-110 H 8823128331) CREATININE (test code = 0.98 mg/dL 0.60-1.25 6010666892) TOTAL BILI (test code = 0.8 mg/dL 0.1-1.7 2589617709) CALCIUM (test code = 10.0 mg/dL 8.6-10.6 7374532321) T PROTEIN (test code = 10.3 g/dL 6.3-8.2 H 5488080368) ALBUMIN (test code = 5.5 g/dL 3.5-5.0 H 8947265588) ALK PHOS (test code = 74 U/L 34-122 6266629855) ALTv (test code = 69 U/L 5-50 H 1742-6) AST(SGOT) (test code = 59 U/L 13-40 H 9493183841) eGFR (test code = mL/min/1.73m2 1934476763) KRYSTLE (test code = KRYTSLE) Association of Glomerular Filtration Rate (GFR) and [...] tests). Lab Interpretation Abnormal (test code = 47119-2) [facility] Worth[facility]IPASE2022-02-16 20:56:05 Test Item Value Reference Range Interpretation Comments LIPASE (test code = 8215923591) 70 U/L 0-220 Lab Interpretation (test code = Normal 16357-9) [facility] WITH [id number] 20:34:20 Test Item Value Reference Range Interpretation Comments WBC (test code = See_Comment H [Automated 3890-2) message] The sy stem which generated this result transmitted reference range : 4.20 - 10.70 10*3/?L. The reference range was not used to interpret this result as normal/abnormal . RBC (test code = See_Comment H [Automated 399-8) message] The sy stem which generated this result transmitted reference range : 4.26 - 5.52 10*6/?L. The reference range was not used to interpret this result as normal/abnormal . HGB (test code = 18.2 g/dL 12.2-16.4 H 718-7) HCT (test code = 53.0 % 38.4-49.3 H 4544-3) MCV (test code = 86.7 fL 81.7-95.6 787-2) MCH (test code = 29.8 pg 26.1-32.7 785-6) MCHC (test code = 34.3 g/dL 31.2-35.0 786-4) RDW-SD (test code = 40.6 fL 38.5-51.6 07446-0) RDW-CV (test code = 12.8 % 12.1-15.4 788-0) PLT (test code = See_Comment [Automated 777-3) message] The sy stem which generated this result transmitted reference range : 150 - 328 10*3/ ?L. The reference r andrea was not used to interpret this result as normal/abnormal . MPV (test code = 9.2 fL 9.8-13.0 L 80388-8) NRBC/100 WBC (test See_Comment [Automat ed code = 9082518213) message] The system which generated this result transmitted reference range : 0.0 - 10.0 /100 WBCs. The refer ence range was not u sed to interpret th is result as normal/abnormal . NRBC x10^3 (test code <0.01 See_Comment [Auto mated = 7194618900) message] The s ystem which generated this result transmitted reference range : 10*3/?L. The reference range was not used to interpret this result as normal/abnormal . GRAN MAT (NEUT) % 67.1 % (test code = 770-8) IMM GRAN % (test code 0.40 % = 5944372906) LYMPH % (test code = 24.5 % 736-9) MONO % (test code = 7.6 % 5905-5) EOS % (test code = 0.1 % 713-8) BASO % (test code = 0.3 % 706-2) GRAN MAT x10^3(ANC) 7.34 10*3/uL 1.99-6.95 H (test code = 9050657376) IMM GRAN x10^3 (test 0.04 10*3/uL 0.00-0.06 code = 4411398702) LYMPH x10^3 (test code 2.67 10*3/uL 1.09-3.23 = 731-0) MONO x10^3 (test code 0.83 10*3/uL 0.36-1.02 = 742-7) EOS x10^3 (test code = <0.03 0.06-0.53 L 711-2) BASO x10^3 (test code 0.03 10*3/uL 0.01-0.09 = 704-7) Lab Interpretation Abnormal (test code = 70479-6) [facility] [id number] 05:55:54 Test Item Value Reference Range Interpretation Comments CK (test code = 9416585191) 3682 U/L 33-194 H Lab Interpretation (test code = Abnormal 20109-1) [facility] [id number] 05:55:54 Test Item Value Reference Range Interpretation Comments CK (test code = 4315459818) 3682 U/L 33-194 H Lab Interpretation (test code = Abnormal 78151-6) [facility] (NA, K, CL, CO2, GLUCOSE, BUN, CREATININE, CA)2021-05-24 05:02:27 Test Item Value Reference Range Interpretation Comments NA (test code = 137 mmol/L 135-145 8397936362) K (test code = 3.6 mmol/L 3.5-5.0 9423345156) CL (test code = 105 mmol/L 98-108 1470512008) CO2 TOTAL (test code = 23 mmol/L 23-31 3178624666) AGAP (test code = 2-16 1710512232) BUN (test code = 26 mg/dL 7-23 H 0022136751) GLUCOSE (test code = 95 mg/dL 70-110 2814553697) CREATININE (test code = 1.31 mg/dL 0.60-1.25 H 3195679380) CALCIUM (test code = 8.6 mg/dL 8.6-10.6 1707029071) eGFR (test code = mL/min/1.73m2 0900640450) KRYSTLE (test code = KRYSTLE) Association of [...] tests). Lab Interpretation Abnormal (test code = 95802-8) [facility] METABOLIC PANEL (NA, K, CL, CO2, GLUCOSE, BUN, CREATININE, CA)2021-05-24 05:02:27 Test Item Value Reference Range Interpretation Comments NA (test code = 137 mmol/L 135-145 7160765771) K (test code = 3.6 mmol/L 3.5-5.0 4934698778) CL (test code = 105 mmol/L 98-108 1340179033) CO2 TOTAL (test code = 23 mmol/L 23-31 5207048021) AGAP (test code = 2-16 4484540817) BUN (test code = 26 mg/dL 7-23 H 8671245828) GLUCOSE (test code = 95 mg/dL 70-110 9261840791) CREATININE (test code = 1.31 mg/dL 0.60-1.25 H 0374121200) CALCIUM (test code = 8.6 mg/dL 8.6-10.6 9013066731) eGFR (test code = mL/min/1.73m2 9662052239) KRYSTLE (test code = KRYSTLE) Association of [...] tests). Lab Interpretation Abnormal (test code = 48379-5) [facility] WorthMELISSA [id number] 02:56:10 Test Item Value Reference Interpretation Comments Range TROPONIN I (test 0.004 ng/mL See_Comment [Automated code = 9010534237) message] The system which generated this result [...] biotin. Lab Interpretation Normal (test code = 89540-6) [facility] WorthTROPONIN [id number] 02:56:10 Test Item Value Reference Interpretation Comments Range TROPONIN I (test 0.004 ng/mL See_Comment [Automated code = 6242272931) message] The system which generated this result [...] biotin. Lab Interpretation Normal (test code = 66089-6) [facility] WorthCREATINE [id number] 02:41:54 Test Item Value Reference Range Interpretation Comments CK (test code = 9459899813) 4607 U/L 33-194 H Lab Interpretation (test code = Abnormal 97378-3) [facility] WorthCREATINE [id number] 02:41:54 Test Item Value Reference Range Interpretation Comments CK (test code = 5728892919) 4607 U/L 33-194 H Lab Interpretation (test code = Abnormal 45415-1) [facility] WorthN-TERMINAL [id number] 02:33:28 Test Item Value Reference Range Interpretation Comments NT-proBNP (test code 14 pg/mL See_Comment [Autom ated = 1344552003) message] The system which generated this result transmitted reference range : <=125. The reference range was not used to interpret this result as normal/abnormal . KRYSTLE (test code = KRYSTLE) Biotin has been reported to cause a negative bias, interpret results relative to patient's use of biotin. Lab Interpretation Normal (test code = 56364-8) [facility] [id number] 02:33:28 Test Item Value Reference Range Interpretation Comments NT-proBNP (test code 14 pg/mL See_Comment [Autom ated = 0597865521) message] The system which generated this result transmitted reference range : <=125. The reference range was not used to interpret this result as normal/abnormal . KRYSTLE (test code = KRYSTLE) Biotin has been reported to cause a negative bias, interpret results relative to patient's use of biotin. Lab Interpretation Normal (test code = 55898-1) [facility] WorthURINALYSIS2021-09-10 02:29:35 Test Item Value Reference Range Interpretation Comments APPEARANCE (test code = Clear Clear 9837736685) COLOR (test code = Yellow Yellow 5622947112) PH (test code = 4.8-8.0 3632341748) SP GRAVITY (test code = 1.003-1.030 6790757700) GLU U QUAL (test code = Normal Normal 1752729250) BLOOD (test code = Negative Negative 9057262923) KETONES (test code = Negative Negative 8327115391) PROTEIN (test code = Negative Negative 2887-8) UROBILIN (test code = 2.0 mg/dL Normal A 4251116758) BILIRUBIN (test code = Negative Negative 1043799272) NITRITE (test code = Negative Negative 6551471103) LEUK MO (test code = Negative Negative 1233335925) RBC/HPF (test code = See_Comment [Autom ated message] 8934960224) The system [employer] generated this result transmit delvin reference range : 0 - 3 HPF. The refe rence range was not u sed to interpret th is result as normal/abnormal . WBC/HPF (test code = See_Comment [Autom ated message] 7951791061) The system [employer] generated this result transmit delvin reference range : 0 - 5 HPF. The refe rence range was not u sed to interpret th is result as normal/abnormal . BACTERIA (test code = Negative Negative 3846560380) MUCOUS (test code = Slight Negative LPF A 6099548889) SQ EPITH (test code = <1 HPF 5920057492) Lab Interpretation (test Abnormal code = 59805-3) [facility] Worth[facility]INALYSIS2021-09-10 02:29:35 Test Item Value Reference Range Interpretation Comments APPEARANCE (test code = Clear Clear 5431887624) COLOR (test code = Yellow Yellow 4681236407) PH (test code = 4.8-8.0 8640542313) SP GRAVITY (test code = 1.003-1.030 6108763967) GLU U QUAL (test code = Normal Normal 8144274590) BLOOD (test code = Negative Negative 5240397148) KETONES (test code = Negative Negative 9405891554) PROTEIN (test code = Negative Negative 2887-8) UROBILIN (test code = 2.0 mg/dL Normal A 6645628009) BILIRUBIN (test code = Negative Negative 8240218095) NITRITE (test code = Negative Negative 3440598920) LEUK MO (test code = Negative Negative 0196670858) RBC/HPF (test code = See_Comment [Autom ated message] 8228206184) The system [employer] generated this result transmit delvin reference range : 0 - 3 HPF. The refe rence range was not u sed to interpret th is result as normal/abnormal . WBC/HPF (test code = See_Comment [Autom ated message] 3237910500) The system [employer] generated this result transmit delvin reference range : 0 - 5 HPF. The refe rence range was not u sed to interpret th is result as normal/abnormal . BACTERIA (test code = Negative Negative 0747250095) MUCOUS (test code = Slight Negative LPF A 5548535831) SQ EPITH (test code = <1 HPF 7042308534) Lab Interpretation (test Abnormal code = 63125-7) [facility] Worth[facility] METABOLIC PANEL (66612)2021-05-24 02:25:07 Test Item Value Reference Range Interpretation Comments NA (test code = 137 mmol/L 135-145 4162656844) K (test code = 3.1 mmol/L 3.5-5.0 L 0734395032) CL (test code = 102 mmol/L 98-108 3612414788) CO2 TOTAL (test code = 22 mmol/L 23-31 L 3245929596) AGAP (test code = 2-16 0941343206) BUN (test code = 28 mg/dL 7-23 H 1464300103) GLUCOSE (test code = 132 mg/dL 70-110 H 8129392609) CREATININE (test code = 1.77 mg/dL 0.60-1.25 H 0275171169) TOTAL BILI (test code = 1.0 mg/dL 0.1-1.3 7178346951) CALCIUM (test code = 9.4 mg/dL 8.6-10.6 5936499219) T PROTEIN (test code = 9.4 g/dL 6.3-8.2 H 8592408883) ALBUMIN (test code = 5.0 g/dL 3.5-5.0 6806123144) ALK PHOS (test code = 79 U/L 34-122 6649152543) ALTv (test code = 112 U/L 5-50 H 1742-6) AST(SGOT) (test code = 152 U/L 13-40 H 0530263326) eGFR (test code = mL/min/1.73m2 3602745733) KRYSTLE (test code = KRYSTLE) Association of [...] tests). Lab Interpretation Abnormal (test code = 01668-8) [facility]. METABOLIC PANEL (01422)2021-05-24 02:25:07 Test Item Value Reference Range Interpretation Comments NA (test code = 137 mmol/L 135-145 1867575411) K (test code = 3.1 mmol/L 3.5-5.0 L 5398440828) CL (test code = 102 mmol/L 98-108 2881882940) CO2 TOTAL (test code = 22 mmol/L 23-31 L 4879264894) AGAP (test code = 2-16 2469288291) BUN (test code = 28 mg/dL 7-23 H 4347490435) GLUCOSE (test code = 132 mg/dL 70-110 H 2275618804) CREATININE (test code = 1.77 mg/dL 0.60-1.25 H 6862753261) TOTAL BILI (test code = 1.0 mg/dL 0.1-1.6 3887711187) CALCIUM (test code = 9.4 mg/dL 8.6-10.6 8575298613) T PROTEIN (test code = 9.4 g/dL 6.3-8.2 H 7463371946) ALBUMIN (test code = 5.0 g/dL 3.5-5.0 1921124829) ALK PHOS (test code = 79 U/L 34-122 6207364598) ALTv (test code = 112 U/L 5-50 H 1742-6) AST(SGOT) (test code = 152 U/L 13-40 H 7720767388) eGFR (test code = mL/min/1.73m2 7894553085) KRYSTLE (test code = KRYSTLE) Association of [...] tests). Lab Interpretation Abnormal (test code = 27363-5) [facility] WITH [id number] 02:03:22 Test Item Value Reference Range Interpretation Comments WBC (test code = See_Comment [Automated 3088-2) message] The sy stem which generated this result transmitted reference range : 4.20 - 10.70 10*3/?L. The reference range was not used to interpret this result as normal/abnormal . RBC (test code = See_Comment [Automated 960-8) message] The sy stem which generated this [...] RDW-SD (test code = 39.7 fL 38.5-51.6 65531-2) RDW-CV (test code = 12.7 % 12.1-15.4 788-0) PLT (test code = See_Comment [Automated 777-3) message] The sy stem which generated this result transmitted reference range : 150 - 328 10*3/ ?L. The reference r andrea was not used to interpret this result as normal/abnormal . MPV (test code = 9.7 fL 9.8-13.0 L 46144-6) NRBC/100 WBC (test See_Comment [Automat ed code = 4524456959) message] The system which generated this result transmitted reference range : 0.0 - 10.0 /100 WBCs. The refer ence range was not u sed to interpret th is result as normal/abnormal . NRBC x10^3 (test code <0.01 See_Comment [Auto mated = 4570030623) message] The s ystem which generated this result transmitted reference range : 10*3/?L. The reference range was not used to interpret this result as normal/abnormal . GRAN MAT (NEUT) % 45.9 % (test code = 770-8) IMM GRAN % (test code 0.20 % = 2772423255) LYMPH % (test code = 41.7 % 736-9) MONO % (test code = 11.6 % 5905-5) EOS % (test code = 0.3 % 713-8) BASO % (test code = 0.3 % 706-2) GRAN MAT x10^3(ANC) 3.95 10*3/uL 1.99-6.95 (test code = 3094113879) IMM GRAN x10^3 (test <0.03 0.00-0.06 code = 9137895492) LYMPH x10^3 (test code 3.60 10*3/uL 1.09-3.23 H = 731-0) MONO x10^3 (test code 1.00 10*3/uL 0.36-1.02 = 742-7) EOS x10^3 (test code = 0.03 10*3/uL 0.06-0.53 L 711-2) BASO x10^3 (test code 0.03 10*3/uL 0.01-0.09 = 704-7) Lab Interpretation Abnormal (test code = 36103-4) [facility] WITH [id number] 02:03:22 Test Item Value Reference Range Interpretation [...] RDW-SD (test code = 39.7 fL 38.5-51.6 17429-5) RDW-CV (test code = 12.7 % 12.1-15.4 788-0) PLT (test code = See_Comment [Automated 777-3) message] The sy stem which generated this result transmitted reference range : 150 - 328 10*3/ ?L. The reference r andrea was not used to interpret this result as normal/abnormal . MPV (test code = 9.7 fL 9.8-13.0 L 85233-3) NRBC/100 WBC (test See_Comment [Automat ed code = 7717484116) message] The system which generated this result transmitted reference range : 0.0 - 10.0 /100 WBCs. The refer ence range was not u sed to interpret th is result as normal/abnormal . NRBC x10^3 (test code <0.01 See_Comment [Auto mated = 6947215819) message] The s ystem which generated this result transmitted reference range : 10*3/?L. The reference range was not used to interpret this result as normal/abnormal . GRAN MAT (NEUT) % 45.9 % (test code = 770-8) IMM GRAN % (test code 0.20 % = 3420705873) LYMPH % (test code = 41.7 % 736-9) MONO % (test code = 11.6 % 5905-5) EOS % (test code = 0.3 % 713-8) BASO % (test code = 0.3 % 706-2) GRAN MAT x10^3(ANC) 3.95 10*3/uL 1.99-6.95 (test code = 3659027442) IMM GRAN x10^3 (test <0.03 0.00-0.06 code = 9856118105) LYMPH x10^3 (test code 3.60 10*3/uL 1.09-3.23 H = 731-0) MONO x10^3 (test code 1.00 10*3/uL 0.36-1.02 = 742-7) EOS x10^3 (test code = 0.03 10*3/uL 0.06-0.53 L 711-2) BASO x10^3 (test code 0.03 10*3/uL 0.01-0.09 = 704-7) Lab Interpretation Abnormal (test code = 74060-8) [facility] (ID NOW RAPID TESTING)2021-05-02 00:31:00 Test Item Value Reference Range Interpretation Comments SARS-CoV-2 Rapid ID NOW Not Detected Not Detected (test code = 17127-6) KRYSTLE (test code = KRYSTLE) ID NOW COVID-19 Assay is an isothermal nucleic acid amplification test intended for the qualitative detection of nucleic acid from SARS-CoV-2 viral RNA in nasopharyngeal (MANAGER [employer]) specimens. It is used under Emergency Use [...] indicated. Lab Interpretation Normal (test code = 02208-0) [facility] STREP SCREEN FOR GROUP [id number] 00:25:45 Test Item Value Reference Range Interpretation Comments Streptococcus pyogenes (group A) Negative Negative antigen (test code = 85844-6) Lab Interpretation (test code = Normal 55423-1) [facility] (ID NOW RAPID TESTING)2021-04-02 01:41:42 Test Item Value Reference Range Interpretation Comments SARS-CoV-2 Rapid ID NOW Not Detected Not Detected (test code = 47800-0) KRYSTLE (test code = KRYSTLE) ID NOW COVID-19 Assay is an isothermal nucleic acid amplification test intended for the qualitative detection of nucleic acid from SARS-CoV-2 viral RNA in nasopharyngeal (MANAGER AUTOMOTIVE) specimens. It is used under Emergency Use [...] indicated. Lab Interpretation Normal (test code = 26666-7) [facility] STREP SCREEN FOR GROUP [id number] 01:39:31 Test Item Value Reference Range Interpretation Comments Streptococcus pyogenes (group A) Negative Negative antigen (test code = 81774-1) Lab Interpretation (test code = Normal 42320-8) [facility] WorthXR WRIST 3+ VW [id number] 02:41:03 Impression: No acute osseous abnormality. AFC: [id number] of Report Exam: XR WRIST 3+ [...] soft tissue edema.IMPRESSIONImpression: No acute osseous abnormality.AFC: [id number] 460End of Report [facility]vineUrinalysis2021-07-05 01:32:01 Test Item Value Reference Range Interpretation Comments APPEARANCE (test code = Clear Clear 3819035692) COLOR (test code = Yellow Yellow 5423995262) PH (test code = 4.8-8.0 5794044951) SP GRAVITY (test code = 1.003-1.030 2965374553) GLU U QUAL (test code = Normal Normal 9139792730) BLOOD (test code = Negative Negative 2545193259) KETONES (test code = Negative Negative 2598375219) PROTEIN (test code = Negative Negative 2887-8) UROBILIN (test code = 2.0 mg/dL Normal A 2311780152) BILIRUBIN (test code = Negative Negative 8746200045) NITRITE (test code = Negative Negative 2634008470) LEUK MO (test code = Negative Negative 6919657450) RBC/HPF (test code = See_Comment [Autom ated message] 1472217137) The system [employer] generated this result transmit delvin reference range : 0 - 3 HPF. The refe rence range was not u sed to interpret th is result as normal/abnormal . WBC/HPF (test code = See_Comment [Autom ated message] 2065511677) The system [employer] generated this result transmit delvin reference range : 0 - 5 HPF. The refe rence range was not u sed to interpret th is result as normal/abnormal . BACTERIA (test code = Few Negative A 2036540803) MUCOUS (test code = Slight Negative LPF A 1779611408) SQ EPITH (test code = <1 HPF 6839213836) Lab Interpretation (test Abnormal code = 24200-0) [facility] Worth[facility] CHEST 1 [id number] 04:09:05Impression: Mild thickening of the sol of the central airways, possibly reflectinginfectious or inflammatory bronchitis. RL: 460 AFC: [id number] Ordering physician: DARNELL HSU Indication: Cough and [...] airways, possibly reflectinginfectious or inflammatory bronchitis.RL: 460AFC: [id number] signed by MD Man, PhD at 11/14/2020 10:09 PM [facility] WorthN-TERMINAL [id number] 15:43:00 Test Item Value Reference Range Interpretation Comments NT-proBNP (test code <11 See_Comment [Autom ated = 3086017083) message] The system which generated this result transmitted reference range : <=125 pg/mL. Th e reference range was not used to interpret this result as normal/abnormal . KRYSTLE (test code = KRYSTLE) Biotin has been reported to cause a negative bias, interpret results relative to patient's use of biotin. Lab Interpretation Normal (test code = 53161-9) [facility] WITH [id number] 15:27:00 Test Item Value Reference Range Interpretation Comments WBC (test code = See_Comment [Automated 8890-2) message] The sy stem which generated this [...] (test code = 37.3 fL 38.5-51.6 L 77400-6) RDW-CV (test code = 11.9 % 12.1-15.4 L 788-0) PLT (test code = See_Comment [Automated 777-3) message] The sy stem which generated this result transmitted reference range : 150 - 328 10*3/ ?L. The reference r andrea was not used to interpret this result as normal/abnormal . MPV (test code = 9.7 fL 9.8-13 L 09438-9) NRBC/100 WBC (test See_Comment [Automat ed code = 4331474264) message] The system which generated this result transmitted reference range : 0.0 - 10.0 /100 WBCs. The refer ence range was not u sed to interpret th is result as normal/abnormal . NRBC x10^3 (test code <0.01 See_Comment [Auto mated = 4394328678) message] The s ystem which generated this result transmitted reference range : 10*3/?L. The reference range was not used to interpret this result as normal/abnormal . GRAN MAT (NEUT) % 29.2 % (test code = 770-8) IMM GRAN % (test code 0.20 % = 9779712677) LYMPH % (test code = 59.0 % 736-9) MONO % (test code = 10.1 % 5905-5) EOS % (test code = 1.1 % 713-8) BASO % (test code = 0.4 % 706-2) GRAN MAT x10^3(ANC) 1.57 10*3/uL 1.99-6.95 L (test code = 4060903901) IMM GRAN x10^3 (test <0.03 0-0.06 code = 3786873372) LYMPH x10^3 (test code 3.17 10*3/uL 1.09-3.23 = 731-0) MONO x10^3 (test code 0.54 10*3/uL 0.36-1.02 = 742-7) EOS x10^3 (test code = 0.06 10*3/uL 0.06-0.53 711-2) BASO x10^3 (test code <0.03 0.01-0.09 = 704-7) Lab Interpretation Abnormal (test code = 46891-6) [facility] 1 [id number] 15:13:32 No acute cardiopulmonary process. Preliminary Report Dictated by Resident: Luiz Alcaraz?MD. Shubham, have reviewed this study and agree withthe [...] reviewed this study and agree withthe above report.[facility] Worth[facility]OPONIN [id number] 14:59:00 Test Item Value Reference Range Interpretation Comments TROPONIN I (test <0.012 See_Comment [Automated code = 2100137035) message] The system which generated this result [...] ? Lab Interpretation Normal (test code = 08731-5) [facility] METABOLIC PANEL ([id number])2020-09-30 14:59:00 Test Item Value Reference Range Interpretation Comments NA (test code = 139 mmol/L 135-145 2215604686) K (test code = 3.8 mmol/L 3.5-5 6611289061) CL (test code = 103 mmol/L 98-108 4007117567) CO2 TOTAL (test code = 26 mmol/L 23-31 4154491374) AGAP (test code = 2-16 7847849930) BUN (test code = 11 mg/dL 7-23 8436677478) GLUCOSE (test code = 163 mg/dL 70-110 H 4435343449) CREATININE (test code = 0.85 mg/dL 0.6-1.25 0910113459) TOTAL BILI (test code = 0.6 mg/dL 0.1-1.1 9039969896) CALCIUM (test code = 9.0 mg/dL 8.6-10.6 1415178829) T PROTEIN (test code = 8.0 g/dL 6.3-8.2 1935096293) ALBUMIN (test code = 4.4 g/dL 3.5-5 2854193282) ALK PHOS (test code = 75 U/L 34-122 8140819013) ALTv (test code = 61 U/L 5-50 H 1742-6) AST(SGOT) (test code = 54 U/L 13-40 H 3837344819) eGFR Calculation mL/min/1.73m2 (Non-) (test code = 7083356910) eGFR Calculation mL/min/1.73m2 () (test code = 9029964333) KRYSTLE (test code = KRYSTLE) Association of [...] tests). Lab Interpretation Abnormal (test code = 96655-2) [facility] Worth[facility]IP[facility], [id number] 14:59:00 Test Item Value Reference Range Interpretation Comments LIPASE (test code = 4327522192) 116 U/L 0-220 Lab Interpretation (test code = Normal 11464-6) [facility] WorthTroponin [id number] 04:30:00 Test Item Value Reference Range Interpretation Comments TROPONIN I (test <0.012 See_Comment [Automated code = 0054141382) message] The system which generated this result [...] ? Lab Interpretation Normal (test code = 02245-9) [facility] Worth[facility] Metabolic [id number] 03:24:00 Test Item Value Reference Range Interpretation Comments NA (test code = 137 mmol/L 135-145 0298528144) K (test code = 4.7 mmol/L 3.5-5 5327891325) CL (test code = 101 mmol/L 98-108 5276385213) CO2 TOTAL (test code = 27 mmol/L 23-31 5374827061) AGAP (test code = 2-16 5937178747) BUN (test code = 16 mg/dL 7-23 3646916542) GLUCOSE (test code = 226 mg/dL 70-110 H 4577321471) CREATININE (test code = 1.13 mg/dL 0.6-1.25 4153337938) TOTAL BILI (test code = 0.7 mg/dL 0.1-1.8 6908111284) CALCIUM (test code = 9.3 mg/dL 8.6-10.6 4827952302) T PROTEIN (test code = 7.8 g/dL 6.3-8.2 4405330467) ALBUMIN (test code = 3.9 g/dL 3.5-5 7260204484) ALK PHOS (test code = 79 U/L 34-122 2945559905) ALTv (test code = 62 U/L 5-50 H 1742-6) AST(SGOT) (test code = 49 U/L 13-40 H 9534640645) eGFR Calculation mL/min/1.73m2 (Non-) (test code = 6152560143) eGFR Calculation mL/min/1.73m2 () (test code = 6988047951) KRYSTLE (test code = KRYSTLE) Association of [...] tests). Lab Interpretation Abnormal (test code = 01733-9) [facility] WorthLipase, [id number] 03:23:00 Test Item Value Reference Range Interpretation Comments LIPASE (test code = 9298905925) 317 U/L 0-220 H Lab Interpretation (test code = Abnormal 32555-0) [facility] WorthCB with [id number] 03:21:00 Test Item Value Reference Range Interpretation Comments WBC (test code = See_Comment [Automated 5521-2) message] The sy stem which generated this result transmitted reference range : 4.20 - 10.70 10*3/?L. The reference range was not used to interpret this result as normal/abnormal . RBC (test code = See_Comment [Automated 728-5) message] The sy stem which generated this [...] (test code = 37.9 fL 38.5-51.6 L 42644-0) RDW-CV (test code = 12.4 % 12.1-15.4 788-0) PLT (test code = See_Comment [Automated 777-3) message] The sy stem which generated this result transmitted reference range : 150 - 328 10*3/ ?L. The reference r andrea was not used to interpret this result as normal/abnormal . MPV (test code = 9.7 fL 9.8-13 L 88109-9) NRBC/100 WBC (test See_Comment [Automat ed code = 6008013542) message] The system which generated this result transmitted reference range : 0.0 - 10.0 /100 WBCs. The refer ence range was not u sed to interpret th is result as normal/abnormal . NRBC x10^3 (test code <0.01 See_Comment [Auto mated = 6583328456) message] The s ystem which generated this result transmitted reference range : 10*3/?L. The reference range was not used to interpret this result as normal/abnormal . GRAN MAT (NEUT) % 36.7 % (test code = 770-8) IMM GRAN % (test code 0.10 % = 0224478525) LYMPH % (test code = 50.9 % 736-9) MONO % (test code = 11.1 % 5905-5) EOS % (test code = 0.8 % 713-8) BASO % (test code = 0.4 % 706-2) GRAN MAT x10^3(ANC) 2.59 10*3/uL 1.99-6.95 (test code = 1874472557) IMM GRAN x10^3 (test <0.03 0-0.06 code = 9659437363) LYMPH x10^3 (test code 3.61 10*3/uL 1.09-3.23 H = 731-0) MONO x10^3 (test code 0.79 10*3/uL 0.36-1.02 = 742-7) EOS x10^3 (test code = 0.06 10*3/uL 0.06-0.53 711-2) BASO x10^3 (test code 0.03 10*3/uL 0.01-0.09 = 704-7) Lab Interpretation Abnormal (test code = 34571-1) [facility]"
[2022-01-03 08:23] LABS: Urine Blood Negative (Negative); Urine Glucose Negative (Negative); Urine Protein Negative (Negative); Urine Specific Gravity >=1.030 (1.005-1.030); Urine pH 5.5 (5.0-7.0)
[2022-01-03] MEDS ORDERED: NA CHLORIDE 0.9% 1,000 ML ONE (08:44)
[2022-01-03 09:06] LABS: Absolute Lymphocytes (CBC) 3.2 K/uL (0.7-4.9); Hematocrit 44.5 % (39.6-49.0); Lymphocytes % 46.8 % (15.3-44.8); MPV 7.4 fL (7.6-11.3); RBC Red Blood Cell Count 5.25 M/uL (4.33-5.43)
[2022-01-03 09:10] LABS: Protime INR 1.11
[2022-01-03 09:29] LABS: ALT/SGPT 37 U/L (12-78); AST/SGOT 33 U/L (15-37); Albumin 3.9 g/dL (3.4-5.0); Alkaline Phosphatase 57 U/L (45-117); BUN Blood Urea Nitrogen 16 mg/dL (7-18); Bicarbonate 25 mmol/L (21-32); Bilirubin Direct 0.3 mg/dL (0-0.2); Bilirubin Total 1.2 mg/dL (0.2-1.0); Glucose Level 107 mg/dL (74-106); Lipase 397 U/L (73-393); Magnesium 2.2 mg/dL (1.8-2.4); Potassium 3.5 mmol/L (3.5-5.1); Protein, Total 8.3 g/dL (6.4-8.2); Sodium Level 136 mmol/L (136-145); Troponin High Sensitivity 3.2 pg/mL (<58.9)
[2022-01-03 09:31] LABS: NT PRO-BNP < 5 pg/mL (<125)
--- NOTE | 2022-01-03 10:00 | RAD REPORT ---
EXAM DESCRIPTION: RAD - Chest Single View - 01/03/2022 9:10 am CLINICAL HISTORY: COUGH COMPARISON: Portable 10/14/2021 TECHNIQUE: AP portable chest image was obtained 01/03/2022 9:10 am . FINDINGS: Lungs are clear. Heart and vasculature are normal. No measurable pleural effusion and no p neumothorax. No acute bony abnormality seen. No acute aortic findings suspected. IMPRESSION: No acute cardiopulmonary process. No significant change from comparison study.
--- NOTE | 2022-01-03 10:14 | RAD REPORT ---
EXAM DESCRIPTION: CT - Abdomen Pelvis W Contrast - 01/03/2022 9:52 am CLINICAL HISTORY: Abdominal pain, acute, nonlocalized COMPARISON: No comparisons TECHNIQUE: Biphasic, helical CT imaging of the abdomen and pelvis was performed following 100 ml non -ionic IV contrast. No oral contrast administered. All CT scans are performed using dose optimization technique as appropriate and may include automated exposure control or mA/KV adjustment according to patient size. FINDINGS: No suspicious findings in the lung bases. The liver, spleen, gallbladder and biliary tree show no suspicious findings. There is a generalized f ullness to the pancreatic head and uncinate process. This pancreatic tissue shows homogeneous attenua tion and enhancement that matches the remainder of the pancreatic parenchyma. This is believed to be normal variant and not a mass. There is no peripancreatic stranding, edema or lymphadenopathy. Symmetric renal function is seen with no hydronephrosis or suspicious renal mass. No pyelonephritis o r acute parenchymal process. At the base of the urinary bladder there is a 17 millimeter mass slightl y more dense than the prostate gland. This could be a true bladder base mass or prostate origin mass or hypertrophy. The remainder of the mostly contracted bladder shows no suspicious finding. Overall p rostate gland size is not enlarged. No adrenal abnormalities. No dilated bowel loops or bowel wall thickening. The appendix is 8 mm in maximum diameter. There is a ir present in the lumen of the appendix base an the appendix tapers down to 3 mm at the tip. No wall thickening or edema seen. No periappendiceal inflammatory stranding or edema. A few small 12 mm or le ss sized mesenteric lymph nodes are present. Small sub centimeter periaortic lymph nodes are present. No free air, free fluid or inflammatory stranding. No significant hernia, large mass or bulky lymph adenopathy. Patient has a very minimal fat only umbilical hernia. Disc and bone degenerative changes are present at L5-S1 advanced for age. This does not appear to cau se canal or significant foramen stenosis. IMPRESSION: No appendicitis, obstruction or other emergent CT abdomen or pelvis finding. There is a 17 millimeter mass of the base of the urinary bladder that could be bladder in origin or c ould represent mass or hypertrophy of the prostate gland. Correlation is needed with any UA abnormal ities. Follow-up outpatient urology consultation may be needed.
--- NOTE | 2022-01-03 10:42 | EDPHYS ---
Physician Documentation [facility] Name: Noah Putnam Age: 51 yrs Sex: Male : 1970 Arrival Date: 01/03/2022 Time: 08:05 Bed 6 Private MD: DINA Physician Jimbo Rivera HPI: 01/03 08:35 This 51 yrs old Black Male presents to ER via Ambulatory with complaints of Back Pain, abe Dizziness. 08:35 The patient presents with pain that is acute, with no known mechanism of injury. The abe symptoms are located in the low back. Onset: The symptoms/episode began/occurred 3 day(s) ago. The pain does not radiate. Associated signs and symptoms: The patient has no apparent associated signs or symptoms. The problem was sustained from unknown cause. Severity of symptoms: At their worst the symptoms were mild, in the emergency department the symptoms are unchanged. The patient has not experienced similar symptoms in the past. Historical: - Allergies: 08:21 Bee Venom; iw - Home Meds: 08:21 amlodipine 10 mg tab 1 tab once daily [Active]; lisinopril 10 mg Oral tab 1 tab once iw daily [Active]; - PMHx: 08:21 chronic kidney disease; Herniated disc; Hypertension; iw - PSHx: 08:21 left arm surgery; iw ROS: 08:36 Constitutional: Negative for fever, chills, and weight loss, Eyes: Negative for injury, abe pain, redness, and discharge, ENT: Negative for injury, pain, and discharge, Neck: Negative for injury, pain, and swelling, Cardiovascular: Negative for chest pain, palpitations, and edema, Respiratory: Negative for shortness of breath, cough, wheezing, and pleuritic chest pain, Back: Negative for injury and pain, : Negative for injury, bleeding, discharge, and swelling, MS/Extremity: Negative for injury and deformity, Skin: Negative for injury, rash, and discoloration, Neuro: Negative for headache, weakness, numbness, tingling, and seizure, Psych: Negative for depression, anxiety, suicide ideation, homicidal ideation, and hallucinations, Allergy/Immunology: Negative for hives, rash, and allergies, Endocrine: Negative for neck swelling, polydipsia, polyuria, polyphagia, and marked weight changes, Hematologic/Lymphatic: Negative for swollen nodes, abnormal bleeding, and unusual bruising. 08:36 Abdomen/GI: Positive for abdominal pain, nausea, constipation, of the right lower quadrant and left lower quadrant. Exam: 08:36 Constitutional: This is a well developed, well nourished patient who is awake, alert, abe and in no acute distress. Head/Face: Normocephalic, atraumatic. Eyes: Pupils equal round and reactive to light, extra-ocular motions intact. Lids and lashes normal. Conjunctiva and sclera are non-icteric and not injected. Cornea within normal limits. Periorbital areas with no swelling, redness, or edema. ENT: Nares patent. No nasal discharge, no septal abnormalities noted. Tympanic membranes are normal and external auditory canals are clear. Oropharynx with no redness, swelling, or masses, exudates, or evidence of obstruction, uvula midline. Mucous membranes moist. Neck: Trachea midline, no thyromegaly or masses palpated, and no cervical lymphadenopathy. Supple, full range of motion without nuchal rigidity, or vertebral point tenderness. No Meningismus. Chest/axilla: Normal chest wall appearance and motion. Nontender with no deformity. No lesions are appreciated. Cardiovascular: Regular rate and rhythm with a normal S1 and S2. No gallops, murmurs, or rubs. Normal PMI, no JVD. No pulse deficits. Respiratory: Lungs have equal breath sounds bilaterally, clear to auscultation and percussion. No rales, rhonchi or wheezes noted. No increased work of breathing, no retractions or nasal flaring. Back: No spinal tenderness. No costovertebral tenderness. Full range of motion. Male : Normal genitalia with no discharge or lesions. Skin: Warm, dry with normal turgor. Normal color with no rashes, no lesions, and no evidence of cellulitis. MS/ Extremity: Pulses equal, no cyanosis. Neurovascular intact. Full, normal range of motion. Neuro: Awake and alert, GCS 15, oriented to person, place, time, and situation. Cranial nerves II-XII grossly intact. Motor strength 5/5 in all extremities. Sensory grossly intact. Cerebellar exam normal. Normal gait. Psych: Awake, alert, with orientation to person, place and time. Behavior, mood, and affect are within normal limits. 08:36 Abdomen/GI: Inspection: distension, that is mild, Bowel sounds: normal, Palpation: mild abdominal tenderness, in the right lower quadrant and left lower quadrant, Liver: no appreciated palpable abnormalities, Hernia: not appreciated. 09:14 ECG was reviewed by the Attending Physician. abe Vital Signs: 08:22 BP 141 / 93; Pulse 85; Resp 16; Temp 97.3; Pulse Ox 95% on R/A; Weight 127.01 kg; iw Height 6 ft. 5 in. (195.58 cm); 09:01 BP 135 / 92; Pulse 75; Resp 15; Pulse Ox 100% on R/A; vg1 09:30 BP 145 / 94; Pulse 62; Resp 15; Pulse Ox 100% on R/A; vg1 10:30 BP 137 / 67; Pulse 60; Resp 16; Pulse Ox 99% on R/A; vg1 08:22 Body Mass Index 33.20 (127.01 kg, 195.58 cm) iw MDM: 08:22 Patient medically screened. abe 08:38 Differential diagnosis: chronic back pain, Fatigue Hydronephrosis Osteoporosis. Data abe reviewed: vital signs, nurses notes, lab test result(s), EKG, radiologic studies, CT scan, plain films. Data interpreted: monitor tech: rate is 85 beats/min, rhythm is regular, Pulse oximetry: on room air is 95 %. Test interpretation: by ED physician or midlevel provider: ECG, plain radiologic studies. Counseling: I had a detailed discussion with the patient and/or guardian regarding: the historical points, exam findings, and any diagnostic results supporting the discharge/admit diagnosis, lab results, radiology results, the need for outpatient follow up, for definitive care, a family practitioner, a franchise business consultant. 01/03 08:23 Order name: Urine Dipstick-Ancillary; Complete Time: 09:47 EDMS 01/03 08:33 Order name: Basic Metabolic Panel; Complete Time: 09:47 abe 01/03 08:33 Order name: CBC with Diff; Complete Time: 09:47 abe 01/03 08:33 Order name: LFT's; Complete Time: 09:47 abe 01/03 08:33 Order name: Magnesium; Complete Time: 09:47 abe 01/03 08:33 Order name: NT PRO-BNP; Complete Time: 09:47 abe 01/03 08:33 Order name: PT-INR; Complete Time: 09:47 [facility] 01/03 08:33 Order name: Troponin HS; Complete Time: 09:47 [facility] 01/03 08:33 Order name: XRAY Chest (1 view); Complete Time: 10:08 [facility] 01/03 08:33 Order name: EKG; Complete Time: 08:34 [facility] 01/03 08:33 Order name: Lipase; Complete Time: 09:47 [facility] 01/03 08:33 Order name: SARS-COV-2 RT PCR (Document "Date of Onset" if Symptomatic); Complete Time: [facility] 10:41 01/03 08:33 Order name: CT Abd/Pelvis - IV Contrast Only; Complete Time: 10:41 [facility] 01/03 08:33 Order name: Cardiac monitoring; Complete Time: 09:00 [facility] 01/03 08:33 Order name: EKG - Nurse/Tech; Complete Time: 09:00 [facility] 01/03 08:33 Order name: IV Saline Lock; Complete Time: 09:00 [facility] 01/03 08:33 Order name: Labs collected and sent; Complete Time: 09:01 [facility] 01/03 08:33 Order name: O2 Per Protocol; Complete Time: 09:01 [facility] 01/03 08:33 Order name: O2 Sat Monitoring; Complete Time: 09:01 [facility] EC:14 Rate is 69 beats/min. Rhythm is regular. QRS [place] is Normal. NH interval is normal. QRS abe interval is normal. QT interval is normal. No Q waves. T waves are Normal. No ST changes noted. Clinical impression: NSR w/ Non-specific ST/T Changes and No evidence of ischemia. Interpreted by me. Reviewed by me. Administered Medications: 08:56 Drug: NS 0.9% 1000 ml Route: IV; Rate: 1 bolus; Site: right antecubital; vg1 10:54 Follow up: IV Status: Completed infusion; IV Intake: 1000ml vg1 Disposition Summary: 01/03/22 10:42 Discharge Ordered Location: Home abe Problem: new aeb Symptoms: have improved abe Condition: Stable abe Diagnosis - Abdominal pain, Generalized abe - Constipation abe Followup: abe - With: Private Physician - When: 2 - 3 days - Reason: Recheck today's complaints, Re-evaluation by your physician Followup: abe - With: - When: 2 - 3 days - Reason: Recheck today's complaints, Re-evaluation by your physician Followup: abe - With: Jose Luis Lagunas MD - When: 5 - 6 days - Reason: Recheck today's complaints, Re-evaluation by your physician Discharge Instructions: - Discharge Summary Sheet abe - Abdominal Pain, Adult abe - Abdominal Pain, Adult, [id number] abe - Constipation, Adult abe - Constipation, Adult, [id number] [facility] Forms: - Medication Reconciliation Form [facility] - Thank You Letter abe - Antibiotic Education abe - Prescription Opioid Use [facility] Prescriptions: - Pepcid 20 mg Oral Tablet - take 1 tablet by ORAL route every 12 hours for 10 days; 20 tablet; Refills: 0, [facility] Product Selection Permitted - Zofran 4 mg Oral Tablet - take 1 tablet by ORAL route every 12 hours As needed; 20 tablet; Refills: 0, [facility] Product Selection Permitted - Lactulose 10 gram/15 mL Oral Solution - take 30 milliliters by ORAL route once daily; 300 milliliter; Refills: 0, [facility] Product Selection Permitted Signatures: Dispatcher [employer] Jimbo Fontenot MD MD cha Williams, Irene, RN Sherley Reid RN RN vg1
--- NOTE | 2022-01-03 10:42 | ER ---
Nurse's Notes [facility] Name: Noah Putnam Age: 51 yrs Sex: Male : 1970 Arrival Date: 01/03/2022 Time: 08:05 Bed 6 Private MD: Diagnosis: Abdominal pain, Generalized;Constipation Presentation: 01/03 08:16 Chief complaint: Patient states: for past week has been feeling bad , has had low abd iw pain and back pain , also his throat was feeling like it was closing up yesterday and he also felt dizzy, and he had not had a BM since Thursday but had one today which is not normal for him, he usually goes every day, also his muscles feel like they are locking up and his urine is not normal, he feels urgency but when he tries to go nothing comes out , denies pain with urination , also wants a COVID test in case someone at work gave it to him, you never know, that's how he got it last time. Coronavirus screen: At this time, the client does not indicate any symptoms associated with coronavirus-19. Ebola Screen: Patient negative for fever greater than or equal to 101.5 degrees Fahrenheit, and additional compatible Ebola Virus Disease symptoms Patient denies exposure to infectious person. Patient denies travel to an Ebola-affected area in the 21 days before illness onset. No symptoms or risks identified at this time. Initial Sepsis Screen: Does the patient meet any 2 criteria? No. Patient's initial sepsis screen is negative. Does the patient have a suspected source of infection? No. Patient's initial sepsis screen is negative. Risk Assessment: Do you want to hurt yourself or someone else? Patient reports no desire to harm self or others. Onset of symptoms was December 27, 2021. 08:16 Method Of Arrival: Ambulatory iw 08:16 Acuity: BREEZY 3 iw Historical: - Allergies: 08:21 Bee Venom; iw - Home Meds: 08:21 amlodipine 10 mg tab 1 tab once daily [Active]; lisinopril 10 mg Oral tab 1 tab once iw daily [Active]; - PMHx: 08:21 chronic kidney disease; Herniated disc; Hypertension; iw - PSHx: 08:21 left arm surgery; iw Screenin: Abuse screen: Denies threats or abuse. Nutritional screening: No deficits noted. vg1 Tuberculosis screening: No symptoms or risk factors identified. Fall Risk No fall in past 12 months (0 pts). No secondary diagnosis (0 pts). IV access (20 points). Ambulatory Aid- None/Bed Rest/Nurse Assist (0 pts). Gait- Normal/Bed Rest/Wheelchair (0 pts) Mental Status- Oriented to own ability (0 pts). Total Del Valle Fall Scale indicates No Risk (0-24 pts). Assessment: 08:20 General: Appears in no apparent distress. uncomfortable, Behavior is calm, cooperative. vg1 Pain: Complains of pain in back and pelvis Pain currently is 8 out of 10 on a pain scale. Pain began x 1 week; states 'has been getting worse for the past couple of days'. Neuro: Level of Consciousness is awake, alert, obeys commands, Oriented to person, place, time, situation. Cardiovascular: Patient's skin is warm and dry. Respiratory: Airway is patent Respiratory effort is even, unlabored. GI: Abdomen is round non-distended, Last BM was January 03, 2022. Reports constipation, nausea. : Reports urgency, Denies burning with urination. EENT: No signs and/or symptoms were reported regarding the EENT system. Derm: Skin is intact, is healthy with good turgor. Musculoskeletal: Circulation, motion, and sensation intact. 09:30 Reassessment: Patient appears in no apparent distress at this time. No changes from vg1 previously documented assessment. Patient and/or family updated on plan of care and expected duration. Pain level reassessed. Patient is alert, oriented x 3, equal unlabored respirations, skin warm/dry/pink. 10:30 Reassessment: Patient appears in no apparent distress at this time. Patient and/or vg1 family updated on plan of care and expected duration. Pain level reassessed. Patient is alert, oriented x 3, equal unlabored respirations, skin warm/dry/pink. Patient states feeling better. Vital Signs: 08:22 BP 141 / 93; Pulse 85; Resp 16; Temp 97.3; Pulse Ox 95% on R/A; Weight 127.01 kg; iw Height 6 ft. 5 in. (195.58 cm); 09:01 BP 135 / 92; Pulse 75; Resp 15; Pulse Ox 100% on R/A; vg1 09:30 BP 145 / 94; Pulse 62; Resp 15; Pulse Ox 100% on R/A; vg1 10:30 BP 137 / 67; Pulse 60; Resp 16; Pulse Ox 99% on R/A; vg1 08:22 Body Mass Index 33.20 (127.01 kg, 195.58 cm) ED Course: 08:05 Patient arrived in ED. ds1 08:08 Sherley Hogan, RN is Primary Nurse. vg1 08:21 Triage completed. iw 08:22 Jimbo Rivera MD is Attending Physician. [facility] 08:22 Arm band placed on. iw 08:22 Patient has correct armband on for positive identification. Bed in low position. Call vg1 light in reach. Side rails up X 1. 09:01 Initial lab(s) drawn, by me, sent to lab. EKG done, COVID swab sent to lab. Inserted vg1 saline lock: 20 gauge in right antecubital area, using aseptic technique. Blood collected. 09:12 XRAY Chest (1 view) In Process Unspecified. EDMS 09:54 CT Abd/Pelvis - IV Contrast Only In Process Unspecified. EDMS 10:41 Albina Patrick MD is Referral Physician. abe 10:42 Jose Luis Lagunas MD is Referral Physician. abe 10:53 No provider procedures requiring assistance completed. IV discontinued, intact, vg1 bleeding controlled, No redness/swelling at site. Pressure dressing applied. Administered Medications: 08:56 Drug: NS 0.9% 1000 ml Route: IV; Rate: 1 bolus; Site: right antecubital; vg1 10:54 Follow up: IV Status: Completed infusion; IV Intake: 1000ml vg1 Intake: 10:54 IV: 1000ml; Total: 1000ml. vg1 Outcome: 10:42 Discharge ordered by . abe 10:54 Discharged to home ambulatory. vg1 10:54 Condition: good 10:54 Discharge instructions given to patient, Instructed on discharge instructions, follow up and referral plans. medication usage, Demonstrated understanding of instructions, follow-up care, medications, Prescriptions given X 3. 10:54 Patient left the ED. vg1 Signatures: Dispatcher [employer] EDAL Jimbo Rivera MD MD cha Sanford, Demi ds1 Brook Siddiqui RN RN Edison, Sherley, RN RN vg1 Corrections: (The following items were deleted from the chart) :31 09:30 BP 145 / 94; Pulse 16bpm; Resp 15bpm; Pulse Ox 100% RA; vg1 vg1
[2022-01-03 11:09] VITALS: TEMP 97.3
[2022-01-03 11:14] VITALS: BP 137/67; O2SAT 99
== END 2022-01-03 10:54 | disposition home or self-care (01) ==
LOC: ER 08:00
DX: K59.00 Constipation, unspecified (principal); M54.50 Low back pain, unspecified; I12.9 Hypertensive chronic kidney disease with stage 1 through stage 4 chronic kidney disease, or unspecified chronic kidney disease; N18.9 Chronic kidney disease, unspecified; Z20.822 Contact with and (suspected) exposure to COVID-19; Z91.030 Bee allergy status
CPT/HCPCS: 36415; 71045; 74177; 80048; 80076; 81003; 83690; 83735; 83880; 84484; 85025; 85610; 93005; 96360; 96361; 99284; J7030; Q9967; U0003

== ENCOUNTER 2022-03-05 12:36 | Emergency (ER) | payer BC ==
--- OUTSIDE RECORDS SUMMARY | 2022-03-05 12:42 | XMS REPORT | Continuity of Care Document ---
:1970 Author Organization [facility] t Address [address] [place] [address] Care Team Providers Name Role Phone PCP, DOES NOT HAVE A Primary Care Physician Unavailable Carly BARRIGA, M Attending Clinician JULIÁN Attending Clinician Unavailable Coco BAKED GOODS STOCK CLERK, F Attending Clinician Julián HEREDIA Attending Clinician Doctor Unassigned, Name Attending Clinician Unavailable Shannon FRENCHP, B Attending Clinician Yenifer ORTEGA Attending Clinician Unavailable Elliot MANAGER ANALYTICAL, G Attending Clinician Nurse, Pob Immunization Attending Clinician Unavailable Christopher Clarke DO Attending Clinician Elías FRENCHP Attending Clinician ELÍAS Attending Clinician Unavailable Isabela [...] bowel 2-16 ity of obstructio obstructio 00:00: Krishna lema n) n) Medical [place] Obesity Obesity Disease Active Univers (BMI (BMI 2-16 ity of 30-39.9) 30-39.9) 00:00: [place] [address] Medical Branch No known No known Disease Unive rs active active ity of problems problems [facility] Allergies, Adverse Reactions, Alerts Allergy Allergy Status Severity Reaction(s) Onset Inactive Treating Comm ents Source Name Type Date Date Clinician BEE DRUG Active Swelling Univers VENOM INGREDI 2-16 ity of PROTEIN 00:00: [place] (HONEY 00 Medical BEE) Branch Bee Propensi Active Swelling Univer s Venom ty to 2-16 ity of Protein adverse 00:00: [place] (Honey reaction 00 Medical Bee) s Branch NO KNOWN Drug Active Univers ALLERGIE Class ity of S [facility] Social History Social Habit Start Date Stop Date Quantity Comments Source Exposure to Not sure [facility] SARS-CoV-2 [facility] (event) [place] Alcohol intake 2021-10-31 2021-10-31 Ex-drinker [facility] 00:00:00 00:00:00 (finding) [facility] Tobacco use and 2021-10-30 2021-10-30 Never used Universit y of exposure 00:00:00 00:00:00 [facility] Sex Ass[birth year] At [birth year] Universit y of 00:00:00 00:00:00 [facility] Smoking Status Start Date Stop Date Source Never smoker [facility] Unknown if ever smoked [facility] y [facility] Medications Ordered Filled Start Stop Current Ordering [...] 2100, Until Discontinu ed, Routine lisinopriL 2021- No [id number] 20mg Take 1 Univers 20 mg 2-18 03-21 tablet by ity of tablet 00:00: 04:59 mouth at [place] 00 :00 bedtime Medical for 30 Branch days. lisinopriL 2021- No [id number] 20mg Take 1 Univers 20 mg 11-01-21 tablet by ity of tablet 00:00: 04:59 mouth at [place] 00 :00 bedtime Medical for 30 Branch [...] [place] mg 00 First dose [facility] 10/31/21 at 0900, Until Discontinu ed, Routine enoxaparin Yes 40mg 40 mg, Unive rs (LOVENOX) 2-17 Subcutaneo ity of injection 15:00: [place], [place] 40 mg 00 First dose [facility] 10/31/21 at 0900, Until Discontinu ed, Routine lactated 2021- No 1000mL at 150 Univ ers ringers IV 10-31 02-17 mL/hr, ity of infusion 07:00: 18:45 1,000 mL, [place] 1,000 mL 00 :24 IV Medical Infusion, Branch CONTINUOUS , Starting on Thu10/31/21 at 0100, Until Thu10/31/21 at 1245, Routine lactated 0 2021- No 1000mL at 75 Unive rs ringers IV 10-31 02-17 mL/hr, ity of infusion 01:00: 06:52 1,000 mL, [place] 1,000 mL 00 :16 IV Medical Infusion, Branch CONTINUOUS , Starting on Thu10/30/21 at 1900, Until Thu10/31/21 at 0052, Routine morpHINE 2021-0 2021- No 4mg 4 mg, Slow Un veronica injection 4 10-31-18 IV Push, ity of mg 00:43: 00:42 Q4HPRN, [place] 35 :35 Starting Medical on Thu Branch 10/30/21 at 1843, Until [place] 10/31/21 at 1842, Routine, Pain (scale 7-10) HYDROcodone 0 2021- No 1{tbl} 1 tablet, Univers -acetaminop 10-31 Oral, [...] 1 [place] 00 :00 dose, On Medical Thu Branch 10/30/21 at 1515, STAT NaCl 0.9% 2021- No 1000mL at 999 Uni vers (NS) bolus 10-30 mL/hr, ity of infusion 21:15: 20:29 1,000 mL, [place] 1,000 mL 00 :00 IV Medical Infusion, Branch ONCE, 1 dose, On Thu10/30/21 at 1515, VASILIY iopamidol 2021- No [id number] 100mL 100 mL, Univers (ISOVUE 10-30 Intravenou ity o f 370-500 mL) 20:37: 20:35 s, ONCE, 1 [place] injection 00 :00 dose, On Medica l 100 mL [facility] Branch 10/30/21 at 1445, Routine NaCl 0.9% 2020-0 2021- No 1000mL at 999 Uni vers (NS) bolus 9-10 09-10 mL/hr, ity of infusion 03:45: 05:00 1,000 mL, [place] 1,000 mL 00 :00 IV Medical Piggyback, Branch ONCE, 1 dose, [place] 05/23/21 at 2245, STAT NaCl 0.9% 2020-0 2021- No 1000mL at 999 Uni vers (NS) bolus 9-10 09-10 mL/hr, ity of infusion 03:45: 05:00 1,000 mL, [place] 1,000 mL 00 :00 IV Medical Piggyback, Branch ONCE, 1 dose, [place] 05/23/21 at 2245, STAT NaCl 0.9% 2020-0 202- No 1000mL at 999 Uni vers (NS) bolus 9-10 09-10 mL/hr, ity of infusion 03:00: 03:00 1,000 mL, [place] 1,000 mL 00 :00 IV Medical Piggyback, Branch ONCE, 1 dose, [place] 05/23/21 at 2200, STAT NaCl 0.9% 2020-0 2021- No 1000mL at 999 Uni vers (NS) bolus 9-10 09-10 mL/hr, ity of infusion 03:00: 03:00 1,000 mL, [place] 1,000 mL 00 :00 IV Medical Piggyback, Branch ONCE, 1 dose, [place] 05/23/21 at 2200, STAT NaCl 0.9% 2020-0 2020- No 500mL at 999 Univ ers (NS) bolus 9- 09-09 mL/hr, 500 it y of infusion 03:15: 15:14 mL, IV [place] 500 mL 00 :00 Piggyback, Medical ONCE, 1 Branch dose, 05/22/21 at 2215, STAT NaCl 0.9% 2020-0 1- No 500mL at 999 Univ ers (NS) bolus 9- 09-09 mL/hr, 500 it y of infusion 03:15: 15:14 mL, IV [place] 500 mL 00 :00 Piggyback, Medical ONCE, 1 Branch dose, 05/22/21 at 2215, STAT dexamethaso 2020- No 10mg 10 mg, Uni vers ne 04-02 07- Intramuscu ity of (DECADRON 03:30: 02:47 lar, [...] Restricted medication : EMERGENCY ROOM, ibuprofen Yes [id number] 800mg Take 1 Univers 800 mg 7-04 tablet by ity of tablet 00:00: mouth [place] 00 every 8 Medical (eight) Branch hours as needed for Pain (scale 4-6). ibuprofen Yes [id number] 800mg Take 1 Univers 800 mg 7-04 tablet by ity of tablet 00:00: mouth [place] 00 every 8 Medical (eight) Branch hours as needed for Pain (scale 4-6). ibuprofen Yes [id number] 800mg Take 1 Univers 800 mg 7-04 tablet by ity of tablet 00:00: mouth [place] 00 every 8 Medical (eight) Branch hours as needed for Pain (scale 4-6). ibuprofen Yes [id number] 800mg Take 1 Univers 800 mg 7-04 tablet by ity of tablet 00:00: mouth [place] 00 every 8 Medical (eight) Branch hours as needed for Pain (scale 4-6). ibuprofen Yes [id number] 800mg Take 1 Univers 800 mg 7-04 tablet by ity of tablet 00:00: mouth [place] 00 every 8 Medical (eight) Branch hours as needed for Pain (scale 4-6). ibuprofen 0 Yes [id number] 800mg Take 1 Univers 800 mg 7-04 tablet by ity of tablet 00:00: mouth [place] 00 every 8 Medical (eight) Branch hours as needed for Pain (scale 4-6). ibuprofen 2020- No [id number] 800mg Take 1 Univers 800 mg 7-04 09-09 tablet by ity of tablet 00:00: 00:00 mouth [place] 00 :00 every 8 Medical (eight) Branch hours as needed for Pain (scale 4-6). ibuprofen 2020- No [id number] 800mg Take 1 Univers 800 mg 03-17 tablet by ity of tablet 00:00: 00:00 [...] No 200mg 200 mg, U nivers (TESSALON 3- 03-04 Oral, ity of PERLES) 05:00: 04:51 ONCE, 1 [place] capsule 200 00 :00 dose, Wed Med ical mg 11/14/20 at Branch 2300, Routine benzonatate 0 Yes [id number] 100mg Take 1 Univers 100 mg 3-03 capsule by ity of capsule 00:00: mouth 3 (three) Medical times Branch daily as needed for Cough. benzonatate Yes [id number] 100mg Take 1 Univers 100 mg 3-03 capsule by ity of capsule 00:00: mouth 3 00 (three) Medical times Branch daily as needed for Cough. benzonatate 2020-0 Yes [id number] 100mg Take 1 Univers 100 mg 3-03 capsule by ity of capsule 00:00: mouth 3 00 (three) Medical times Branch daily as needed for Cough. benzonatate 2020-0 Yes [id number] 100mg Take 1 Univers 100 mg 3-03 capsule by ity of capsule 00:00: mouth 3 00 (three) Medical times Branch daily as needed for Cough. benzonatate 2020-0 Yes [id number] 100mg Take 1 Univers 100 mg 3-03 capsule by ity of capsule 00:00: mouth 3 [place] 00 (three) Medical times Branch daily as needed for Cough. benzonatate 2020-0 Yes [id number] 100mg Take 1 Univers 100 mg 3-03 capsule by ity of capsule 00:00: mouth 3 [place] 00 (three) Medical times [place] daily as needed for Cough. benzonatate 2020- No [id number] 100mg Take 1 Univers 100 mg 11-14 capsule by ity of capsule 00:00: 00:00 mouth 3 [place] 00 :00 (three) Medical times [place] daily as needed for Cough. benzonatate 2020- No [id number] 100mg Take 1 Univers 100 mg 11-14 capsule by ity of capsule 00:00: 00:00 mouth 3 [place] 00 :00 (three) Medical times [place] daily as needed for Cough. diphenhydrA 2020- No 25mg 25 mg, Uni vers MINE 09-30 Slow IV ity of (BENADRYL) 16:00: 15:17 Push, [place] injection 00 :00 ONCE, 1 Medical 25 mg dose, [place] Branch 09/30/20 at 1000, STAT metoclopram 2020- No 10mg 10 mg, Uni vers jerilyn HCl 09-30 Slow IV ity of (REGLAN) 16:00: 15:17 Push, [place] injection 00 :00 ONCE, 1 Medical 10 mg dose, [place] Branch 09/30/20 at 1000, VASILIY NaCl 0.9% 2020- No 1000mL at 999 Uni vers (NS) bolus 09-30 mL/hr, ity of infusion 15:00: 16:45 1,000 mL, [place] 1,000 mL 00 :00 IV Medical Infusion, Branch ONCE, 1 dose, [place] 09/30/20 at 0900, VASILIY lisinopriL Yes [id number] 10mg Take 1 Univers 10 mg 1-17 tablet by ity of tablet 00:00: mouth at [place] [address] bedtime. Medical Branch amLODIPine Yes [id number] 10mg Take 1 Univers (NORVASC) 1-17 tablet by ity o f 10 mg 00:00: mouth [place] tablet 00 daily. Medical Branch lisinopriL Yes [id number] 10mg Take 1 Univers 10 mg 1-17 tablet by ity of tablet 00:00: mouth at [place] 00 bedtime. Medical Branch amLODIPine Yes [id number] 10mg Take 1 Univers (NORVASC) 1-17 tablet by ity o f 10 mg 00:00: mouth [place] tablet 00 daily. Medical Branch lisinopriL Yes [id number] 10mg Take 1 Univers 10 mg 1-17 tablet by ity of tablet 00:00: mouth at [place] 00 bedtime. Medical Branch amLODIPine Yes [id number] 10mg Take 1 Univers (NORVASC) 1-17 tablet by ity o f 10 mg 00:00: mouth [place] tablet 00 daily. Medical Branch lisinopriL Yes [id number] 10mg Take 1 Univers 10 mg 1-17 tablet by ity of tablet 00:00: mouth at [place] 00 bedtime. Medical Branch amLODIPine Yes [id number] 10mg Take 1 Univers (NORVASC) 1-17 tablet by ity o f 10 mg 00:00: mouth [place] tablet 00 daily. Medical Branch lisinopriL Yes [id number] 10mg Take 1 Univers 10 mg 1-17 tablet by ity of tablet 00:00: mouth at [place] 00 bedtime. Medical Branch amLODIPine Yes [id number] 10mg Take 1 Univers (NORVASC) 1-17 tablet by ity o f 10 mg 00:00: mouth [place] tablet 00 daily. Medical Branch lisinopriL Yes [id number] 10mg Take 1 Univers 10 mg 1-17 tablet by ity of tablet 00:00: mouth at [place] 00 bedtime. Medical Branch amLODIPine Yes [id number] 10mg Take 1 Univers (NORVASC) 1-17 tablet by ity o f 10 mg 00:00: mouth [place] tablet 00 daily. Medical Branch lisinopriL Yes [id number] 10mg Take 1 Univers 10 mg 1-17 tablet by ity of tablet 00:00: mouth at [place] 00 bedtime. Medical Branch amLODIPine Yes [id number] 10mg Take 1 Univers (NORVASC) 1-17 tablet by ity o f 10 mg 00:00: mouth [place] tablet 00 daily. Medical Branch lisinopriL Yes [id number] 10mg Take 1 Univers 10 mg 1-17 tablet by ity of tablet 00:00: mouth at [place] 00 bedtime. Medical Branch amLODIPine Yes [id number] 10mg Take 1 Univers (NORVASC) 1-17 tablet by ity o f 10 mg 00:00: mouth [place] tablet 00 daily. Medical Branch lisinopriL Yes [id number] 10mg Take 1 Univers 10 mg 1-17 tablet by ity of tablet 00:00: mouth at [place] 00 bedtime. Medical Branch amLODIPine Yes [id number] 10mg Take 1 Univers (NORVASC) 1-17 tablet by ity o f 10 mg 00:00: mouth [place] tablet 00 daily. Medical Branch lisinopriL Yes [id number] 10mg Take 1 Univers 10 mg 1-17 tablet by ity of tablet 00:00: mouth at [place] 00 bedtime. Medical Branch amLODIPine Yes [id number] 10mg Take 1 Univers (NORVASC) 1-17 tablet by ity o f 10 mg 00:00: mouth [place] tablet 00 daily. Medical Branch amLODIPine Yes [id number] 10mg Take 1 Univers (NORVASC) 1-17 tablet by ity o f 10 mg 00:00: mouth [place] tablet 00 daily. Medical Branch amLODIPine Yes [id number] 10mg Take 1 Univers (NORVASC) 1-17 tablet by ity o f 10 mg 00:00: mouth [place] tablet 00 daily. Medical Branch lisinopriL Yes [id number] 10mg Take 1 Univers 10 mg 1-17 tablet by ity of tablet 00:00: mouth at [place] 00 bedtime. Medical Branch amLODIPine Yes [id number] 10mg Take 1 Univers (NORVASC) 1-17 tablet by ity o f 10 mg 00:00: mouth [place] tablet 00 daily. Medical Branch lisinopriL Yes [id number] 10mg Take 1 Univers 10 mg 1-17 tablet by ity of tablet 00:00: mouth at [place] 00 bedtime. Medical Branch amLODIPine Yes [id number] 10mg Take 1 Univers (NORVASC) 1-17 tablet by ity o f 10 mg 00:00: mouth [place] tablet 00 daily. Medical Branch lisinopriL Yes [id number] 10mg Take 1 Univers 10 mg 1-17 tablet by ity of tablet 00:00: mouth at [place] 00 bedtime. Medical Branch amLODIPine Yes [id number] 10mg Take 1 Univers (NORVASC) 1-17 tablet by ity o f 10 mg 00:00: mouth [place] tablet 00 daily. Medical Branch lisinopriL 2021- No [id number] 10mg Take 1 Univers 10 mg 1-17 02-18 tablet by ity of tablet 00:00: 00:00 mouth at [place] 00 :00 bedtime. Medical Branch maalox:diph 2019-09 2020- No 15mL 15 mL, Uni vers enhydrAMINE 0-19 -19 Oral, ity of :lidocaine 03:30: 03:30 ONCE, 1 [place] 2 % viscous 00 :00 dose, [place] Med ical 1:1:1 07/01/20 Branch [facility] 2230[facility] VASILIY oral suspension 15 mL sodium 2019-09 Yes 5mL 5 mL, Univers chloride 0-19 Intravenou ity o f (NS) 03:00: s, PRN, [place] injection 5 48 Starting Medi amy mL [facility] 07/01/20 at 2200, Until Discontinu ed, Routine, IV line flushing sucralfate 2019-09 2020- No [id number] 1g Take 1 Univers 1 gram 0-18 -02 tablet by ity of tablet 00:00: 05:59 mouth [place] 00 :00 before Medical meals and Branch at bedtime for 14 days. No known No Univers medications ity of [facility] Immunizations Ordered Filled Immunization Date Status Comments Sour e Immunization Name Name SARS-COV-2 COVID-19 2021-05-07 Completed Unive rsity of PFIZER VACCINE 00:00:00 [facility] [place] SARS-COV-2 COVID-19 2021-05-07 Completed Unive rsity of PFIZER VACCINE 00:00:00 [facility] [place] SARS-COV-2 COVID-19 2021-05-07 Completed Unive rsity of PFIZER VACCINE 00:00:00 [facility] [place] SARS-COV-2 COVID-19 2021-05-07 Completed Unive rsity of PFIZER VACCINE 00:00:00 [facility] [place] SARS-COV-2 COVID-19 2021-05-07 Completed Unive rsity of PFIZER VACCINE 00:00:00 [facility] [place] SARS-COV-2 COVID-19 2021-05-07 Completed Unive rsity of PFIZER VACCINE 00:00:00 [facility] [place] SARS-COV-2 COVID-19 2021-05-07 Completed Unive rsity of PFIZER VACCINE 00:00:00 [facility] [place] SARS-COV-2 COVID-19 2021-05-07 Completed Unive rsity of PFIZER VACCINE 00:00:00 [facility] [place] Vital Signs Vital Name Observation Time Observation Value Comments Source Systolic blood 2021-11-01 17:12:00 152 mm[Hg] Univer sity of pressure [facility] Diastolic blood 2021-11-01 17:12:00 89 mm[Hg] Unive rsity of pressure [facility] Heart rate 2021-11-01 17:12:00 72 /min Universi ty [facility] Body temperature 2021-11-01 17:12:00 36.17 Cindi Univ ersity of [facility] Respiratory rate 2021-11-01 17:12:00 18 /min Univ ersity of [facility] Oxygen saturation in 2021-11-01 17:12:00 94 /min University of Arterial blood by [facility] [place] Pulse oximetry Branch Body height 2021-10-30 23:19:00 195.6 cm Universi ty [facility] Body weight 2021-10-30 23:19:00 116.983 kg [facility] BMI 2021-10-30 23:19:00 30.58 kg/m2 Univers ty [facility] Systolic blood 2021-05-24 06:00:00 135 mm[Hg] Univer sity of pressure [facility] Diastolic blood 2021-05-24 06:00:00 97 mm[Hg] Unive rsity of pressure [facility] Heart rate 2021-05-24 06:00:00 88 /min Universi ty of [facility] Respiratory rate 2021-05-24 06:00:00 21 /min Univ ersity of [facility] Branch Oxygen saturation in 2021-05-24 06:00:00 94 /min University of Arterial blood by [facility] [place] Pulse oximetry Branch Body temperature 2021-05-24 01:47:00 37.28 Cindi Univ ersity of [facility] Body height 2021-05-24 01:47:00 195.6 cm Universi ty of [place] [facility] Body weight 2021-05-24 01:47:00 127.461 kg Universi ty of [place] [facility] BMI 2021-05-24 01:47:00 33.32 kg/m2 Universi ty of [place] [facility] Systolic blood 2021-05-22 23:36:00 154 mm[Hg] Univer sity of pressure [place] [facility] Diastolic blood 2021-05-22 23:36:00 112 mm[Hg] Unive rsity of pressure [place] [facility] Heart rate 2021-05-22 23:36:00 97 /min Universi ty of [place] [facility] Body temperature 2021-05-22 23:36:00 36 Cindi Univ ersity of [place] [facility] Respiratory rate 2021-05-22 23:36:00 19 /min Univ ersity of [place] [facility] Body height 2021-05-22 23:36:00 195.6 cm Universi ty of [place] [facility] Body weight 2021-05-22 23:36:00 127.007 kg Universi ty of [place] [facility] BMI 2021-05-22 23:36:00 33.20 kg/m2 Universi ty of [place] [facility] Oxygen saturation in 2021-05-22 23:36:00 96 /min University of Arterial blood by [employer] Pulse oximetry Branch Systolic blood 2021-05-02 00:01:00 157 mm[Hg] Univer sity of pressure [place] [facility] Diastolic blood 2021-05-02 00:01:00 93 mm[Hg] Unive rsity of pressure [place] [facility] Heart rate 2021-05-02 00:01:00 84 /min Universi ty of [place] [facility] Body temperature 2021-05-02 00:01:00 36.56 Cindi Univ ersity of [place] [facility] Respiratory rate 2021-05-02 00:01:00 18 /min Univ ersity of [place] [facility] Body weight 2021-05-02 00:01:00 126.554 kg Universi ty of [place] [facility] BMI 2021-05-02 00:01:00 33.08 kg/m2 Universi ty of [place] [facility] Oxygen saturation in 2021-05-02 00:01:00 97 /min University of Arterial blood by [employer] Pulse oximetry Branch Systolic blood 2021-04-02 01:01:00 144 mm[Hg] Univer sity of pressure [place] [facility] Diastolic blood 2021-04-02 01:01:00 94 mm[Hg] Unive rsity of pressure [place] [facility] Heart rate 2021-04-02 01:01:00 89 /min Universi ty of [place] [facility] Body temperature 2021-04-02 01:01:00 37.06 Cindi Univ ersity of [place] [facility] Respiratory rate 2021-04-02 01:01:00 18 /min Univ ersity of [place] [facility] Body weight 2021-04-02 01:01:00 129.729 kg Universi ty of [place] [facility] BMI 2021-04-02 01:01:00 33.91 kg/m2 Universi ty of [place] [facility] Oxygen saturation in 2021-04-02 01:01:00 100 /min University of Arterial blood by [facility] amy Pulse oximetry Branch Systolic blood 2021-04-02 01:01:00 144 mm[Hg] Univer sity of pressure [place] [facility] Diastolic blood 2021-04-02 01:01:00 94 mm[Hg] Unive rsity of pressure [place] [facility] Heart rate 2021-04-02 01:01:00 89 /min Universi ty of [place] [facility] Body temperature 2021-04-02 01:01:00 37.06 Cindi Univ ersity of [place] [facility] Respiratory rate 2021-04-02 01:01:00 18 /min Univ ersity of [place] [facility] Body weight 2021-04-02 01:01:00 129.729 kg Universi ty of [place] [facility] BMI 2021-04-02 01:01:00 33.91 kg/m2 Universi ty of [place] [facility] Oxygen saturation in 2021-04-02 01:01:00 100 /min University of Arterial blood by [place] Medi amy Pulse oximetry Branch Systolic blood 2021-03-18 03:16:13 140 mm[Hg] Univer sity of pressure [place] [facility] Diastolic blood 2021-03-18 03:16:13 80 mm[Hg] Unive rsity of pressure [place] [facility] Heart rate 2021-03-18 03:16:13 80 /min Universi ty of [place] [facility] Body temperature 2021-03-18 03:16:13 36.67 Cindi Univ ersity of [place] [facility] Respiratory rate 2021-03-18 03:16:13 19 /min Univ ersity of [place] [facility] Oxygen saturation in 2021-03-18 03:16:13 99 /min University of Arterial blood by [facility] [place] Pulse oximetry Branch Body weight 2021-03-18 01:02:00 129.729 kg Universi ty of [place] [facility] BMI 2021-03-18 01:02:00 33.91 kg/m2 Universi ty of [place] [facility] Systolic blood 2021-03-18 03:16:13 140 mm[Hg] Univer sity of pressure [place] [facility] Diastolic blood 2021-03-18 03:16:13 80 mm[Hg] Unive rsity of pressure [place] [facility] Heart rate 2021-03-18 03:16:13 80 /min Universi ty of [place] [facility] Body temperature 2021-03-18 03:16:13 36.67 Cindi Univ ersity of [place] [facility] Respiratory rate 2021-03-18 03:16:13 19 /min Univ ersity of [place] [facility] Oxygen saturation in 2021-03-18 03:16:13 99 /min University of Arterial blood by [facility] [place] Pulse oximetry Branch Body weight 2021-03-18 01:02:00 129.729 kg Universi ty of [place] [facility] BMI 2021-03-18 01:02:00 33.91 kg/m2 Universi ty of [place] [facility] Oxygen saturation in 2020-11-15 04:31:00 97 /min University of Arterial blood by [facility] [place] Pulse oximetry Branch Systolic blood 2020-11-15 03:25:00 173 mm[Hg] Univer sity of pressure [place] [facility] Diastolic blood 2020-11-15 03:25:00 97 mm[Hg] Unive rsity of pressure [place] [facility] Heart rate 2020-11-15 03:25:00 84 /min Universi ty of [place] [facility] Body temperature 2020-11-15 03:25:00 36.67 Cindi Univ ersity of [place] [facility] Respiratory rate 2020-11-15 03:25:00 20 /min Univ ersity of [place] [facility] Body weight 2020-11-15 03:25:00 132.45 kg Universi ty of [place] [facility] BMI 2020-11-15 03:25:00 34.63 kg/m2 Universi ty of [place] [facility] Oxygen saturation in 2020-11-15 04:31:00 97 /min University of Arterial blood by [facility] amy Pulse oximetry Branch Systolic blood 2020-11-15 03:25:00 173 mm[Hg] Univer sity of pressure [place] [facility] Diastolic blood 2020-11-15 03:25:00 97 mm[Hg] Unive rsity of pressure [place] [facility] Heart rate 2020-11-15 03:25:00 84 /min Universi ty of [place] [facility] Body temperature 2020-11-15 03:25:00 36.67 Cindi Univ ersity of [place] [facility] Respiratory rate 2020-11-15 03:25:00 20 /min Univ ersity of [place] [facility] Body weight 2020-11-15 03:25:00 132.45 kg Universi ty of [place] [facility] BMI 2020-11-15 03:25:00 34.63 kg/m2 Universi ty of [place] [facility] Systolic blood 2020-09-30 16:30:00 121 mm[Hg] Univer sity of pressure [place] [facility] Diastolic blood 2020-09-30 16:30:00 66 mm[Hg] Unive rsity of pressure [place] [facility] Heart rate 2020-09-30 16:30:00 72 /min Universi ty of [place] [facility] Respiratory rate 2020-09-30 16:30:00 19 /min Univ ersity of [place] [facility] Oxygen saturation in 2020-09-30 16:30:00 94 /min University of Arterial blood by [facility] [place] Pulse oximetry Branch Body weight 2020-09-30 14:20:00 136.079 kg Universi ty of [place] [facility] BMI 2020-09-30 14:20:00 35.57 kg/m2 Universi ty of [place] [facility] Body temperature 2020-09-30 14:10:00 37.06 Cindi Univ ersity of [place] [facility] Systolic blood 2020-09-30 16:30:00 121 mm[Hg] Univer sity of pressure [place] [facility] Diastolic blood 2020-09-30 16:30:00 66 mm[Hg] Unive rsity of pressure [place] [facility] Heart rate 2020-09-30 16:30:00 72 /min Universi ty of [place] [facility] Respiratory rate 2020-09-30 16:30:00 19 /min Univ ersity of [place] Medical Branch Oxygen saturation in 2020-09-30 16:30:00 94 /min [facility] Arterial blood by [facility] Pulse oximetry Branch Body weight 2020-09-30 14:20:00 136.079 kg [facility] [place] [facility] BMI 2020-09-30 14:20:00 35.57 kg/m2 [facility] [place] [facility] Body temperature 2020-09-30 14:10:00 37.06 Cindi [facility] [place] [facility] Systolic blood 2020-07-02 04:00:00 132 mm[Hg] [facility] [place] [facility] Diastolic blood 2020-07-02 04:00:00 84 mm[Hg] [facility] [place] [facility] Heart rate 2020-07-02 04:00:00 89 /min [facility] [place] [facility] Oxygen saturation in 2020-07-02 04:00:00 95 /min [facility] Arterial blood by [facility] Pulse oximetry Branch Body temperature 2020-07-02 02:53:00 36.94 Cindi [facility] [place] [facility] Respiratory rate 2020-07-02 02:53:00 18 /min [facility] [place] [facility] Body height 2020-07-02 02:53:00 195.6 cm [facility] [place] [facility] Body weight 2020-07-02 02:53:00 136.079 kg [facility] [place] [facility] BMI 2020-07-02 02:53:00 35.57 kg/m2 [facility] [place] [facility] Systolic blood 2020-07-02 04:00:00 132 mm[Hg] [facility] [place] [facility] Diastolic blood 2020-07-02 04:00:00 84 mm[Hg] [facility] [place] [facility] Heart rate 2020-07-02 04:00:00 89 /min [facility] [place] [facility] Oxygen saturation in 2020-07-02 04:00:00 95 /min [facility] Arterial blood by [facility] Pulse oximetry Branch Body temperature 2020-07-02 02:53:00 36.94 Cindi [facility] [place] [facility] Respiratory rate 2020-07-02 02:53:00 18 /min [facility] [place] [facility] Body height 2020-07-02 02:53:00 195.6 cm [facility] Body weight 2020-07-02 02:53:00 136.079 kg [facility] BMI 2020-07-02 02:53:00 35.57 kg/m2 [facility] Procedures Procedure Date / Time Performing Clinician Source Performed PHOSPHORUS 2021-11-01 09:55:00 Darshan [facility] MAGNESIUM 2021-11-01 09:55:00 Darshan [facility] BASIC METABOLIC PANEL 2021-11-01 09:55:00 [facility] [place] (NA, K, CL, CO2, GLUCOSE, Medica l Branch BUN, CREATININE, CA) CBC WITH DIFF 2021-11-01 09:55:00 Darshan [facility] PHOSPHORUS 2021-10-31 08:45:00 Leela [facility] CREATINE KINASE 2021-10-31 08:45:00 Leela [facility] MAGNESIUM 2021-10-31 08:45:00 Julián [facility] TROPONIN I 2021-10-31 08:45:00 Leela [facility] COMP. METABOLIC PANEL 2021-10-31 08:45:00 Leela greg [facility] ([id number]) [facility] CBC WITH DIFF 2021-10-31 08:45:00 Julián [facility] PROTHROMBIN TIME / INR 2021-10-31 08:45:00 [facility] N-TERMINAL PRO-BNP 2021-10-31 08:45:00 Roxanne Swenson [facility] LACTIC ACID WHOLE BLOOD 2021-10-31 08:45:00 Roxanne Swenson [facility] FECES CULTURE 2021-10-30 22:27:00 Monica Hernandez [facility] OCCULT (GUAIAC) BLOOD 2021-10-30 22:27:00 [facility] CLOSTRIDIUM DIFFICILE 2021-10-30 22:27:00 Monica Hernandez [facility] TOXIN [facility] COVID-19 (ID NOW RAPID 2021-10-30 21:24:00 [facility] LAB ONLY COVID 2021-10-30 21:24:00 Madison Sepulveda [facility] INTERPRETATION [facility] CT ABDOMEN PELVIS W 2021-10-30 20:44:09 Madison Sepulveda [facility] CONTRAST [facility] Branch LIPASE 2021-10-30 20:25:00 Madison Sepulveda [facility] TROPONIN I 2021-10-30 20:25:00 Roxanne Swenson [facility] COMP. METABOLIC PANEL 2021-10-30 20:25:00 Madison Sepulveda [facility] ([id number]) [facility] CBC WITH DIFF 2021-10-30 20:25:00 Madison Sepulveda [facility] URINALYSIS 2021-10-30 20:25:00 Madison Sepulveda [facility] N-TERMINAL PRO-BNP 2021-10-30 20:25:00 Roxanne Swenson [facility] CONSENT/REFUSAL FOR 2021-10-30 19:24:05 Doctor Unassigned, [facility] DIAGNOSIS AND TREATMENT [place] [facility] CREATINE KINASE 2021-05-24 04:40:00 Felipe Ortega [facility] BASIC METABOLIC PANEL 2021-05-24 04:40:00 Felipe Ortega [facility] (NA, K, CL, CO2, GLUCOSE, Medica l Branch BUN, CREATININE, CA) URINALYSIS 2021-05-24 02:14:00 Felipe Ortega [facility] CREATINE KINASE 2021-05-24 01:53:00 Felipe Ortega [facility] TROPONIN I 2021-05-24 01:53:00 Felipe Ortega [facility] COMP. METABOLIC PANEL 2021-05-24 01:53:00 Felipe Ortega [facility] ([id number]) Medical Branch CBC WITH DIFF 2021-05-24 01:53:00 Felipe Ortega [facility] N-TERMINAL PRO-BNP 2021-05-24 01:53:00 Felipe Ortega [facility] Medical Branch ASSIGNMENT OF BENEFITS 2021-05-23 00:46:04 Doctor Unassigned, [facility] [place] [facility] CONSENT/REFUSAL FOR 2021-05-22 23:31:57 Doctor Andrea [facility] DIAGNOSIS AND TREATMENT [place] [facility] SARS-COV-2 COVID-19 2021-05-07 16:12:40 Doctor Andrea [facility] VACCINE,0.3ML,IM (PFIZER) [place] [facility] RAPID STREP SCREEN FOR 2021-05-02 00:07:00 Julian Matos [facility] GROUP A Medical Branch COVID-19 (ID NOW RAPID 2021-05-02 00:07:00 Julian Matos [facility] TESTING) Medical Branch CONSENT/REFUSAL FOR 2021-05-01 23:56:07 Doctor Andrea [facility] RAPID STREP SCREEN FOR 2021-04-02 01:05:00 Nikhil Mckinley [facility] GROUP A Medical Branch COVID-19 (ID NOW RAPID 2021-04-02 01:05:00 Nikhil Mckinley [facility] TESTING) Medical Branch NOTICE OF PRIVACY 2021-04-02 00:56:18 Doctor Andrea [facility] PRACTICES [place] [facility] CONSENT/REFUSAL FOR 2021-04-02 00:49:05 Doctor Andrea [facility] DIAGNOSIS AND TREATMENT [place] [facility] XR WRIST 3+ VW LEFT 2021-03-18 01:19:59 Nikhil Mckinley [facility] Medical Branch URINALYSIS 2021-03-18 01:12:00 Nikhil Mckinley [facility] CONSENT/REFUSAL FOR 2021-03-18 00:56:01 Doctor Andrea [facility] DIAGNOSIS AND TREATMENT [place] [facility] XR CHEST 1 VW 2020-11-15 03:48:28 Darnell Hsu [place] [facility] CONSENT/REFUSAL FOR 2020-11-15 03:11:27 Doctor Andrea [facility] DIAGNOSIS AND TREATMENT [place] [facility] [place] [facility] HEAD WO CONTRAST 2020-09-30 15:00:43 Jessy Siddiqui [facility] XR CHEST 1 VW 2020-09-30 14:37:13 Jessy Siddiqui [facility] LIPASE 2020-09-30 14:25:00 Jessy Siddiqui [facility] TROPONIN I 2020-09-30 14:25:00 Jessy Siddiqui [facility] COMP. METABOLIC PANEL 2020-09-30 14:25:00 Jessy Siddiqui [facility] ([id number]) [facility] CBC WITH DIFF 2020-09-30 14:25:00 Jessy Siddiqui [facility] N-TERMINAL PRO-BNP 2020-09-30 14:25:00 Jessy Siddiqui [facility] NOTICE OF PRIVACY 2020-09-30 13:57:13 Doctor Andrea, [facility] PRACTICES [place] [facility] CONSENT/REFUSAL FOR 2020-09-30 13:55:57 Doctor Andrea [facility] DIAGNOSIS AND TREATMENT [facility] EKG-12 LEAD 2020-07-02 03:20:42 Felipe Ortega [facility] LIPASE 2020-07-02 03:05:00 Juan Orantes [facility] TROPONIN I 2020-07-02 03:05:00 Felipe Ortega [facility] COMP. METABOLIC PANEL 2020-07-02 03:05:00 Juan Orantes [facility] ([id number]) [facility] CBC WITH DIFF 2020-07-02 03:05:00 Juan Orantes [facility] NOTICE OF PRIVACY 2020-07-02 02:48:43 Doctor Andrea, [facility] PRACTICES [place] [facility] [place] CONSENT/REFUSAL FOR 2020-07-02 02:46:14 Doctor Andrea [facility] DIAGNOSIS AND TREATMENT [place] [facility] [place] Encounters Start End Encounter Admission Attending Care Care Encounter Source Date/Time Date/Time Type Type Clinicians Facility Department ID 2021-07-14 Emergency X [facility] [id number] Univers 03:01:33 ity of [facility] 2021-11-04 2021-11-04 Transition CarrollBRUNOChayo 1.2.840.114 [id number] Univers 00:00:00 00:00:00 of Care Ellen MARTINEZY [id number] [place] [id number] [facility] 403 Branch 2021-10-30 2021-11-01 Inpatient X JULIÁN [facility] MARTI [id number] Univers 13:39:00 13:45:00 EMELIA ity of [facility] 2021-10-30 2021-11-01 [facility] Madison Sepulveda [facility] 1.2.8 40.114 [id number] Univers 13:39:00 13:45:00 Encounter Emelia Huizar [id number] [place] [id number] [facility] 081 Branch 2021-10-30 2021-10-30 Orders Doctor KARL 1.2.840.114 [id number] Univers 00:00:00 00:00:00 Only Unassigned, EVE [id number] ity of [place] [facility] 4.2.7.2.686 Jim as [id number] [facility] 009 Branch 2021-05-23 2021-05-24 Emergency [place], [facility] 1.2.840.114 [id number] Univers 20:42:00 01:42:00 Felipe Yenifer Krueger [id number] i ty [place] [id number] [facility] 084 Branch 2021-05-23 2021-05-23 Emergency [facility] E[facility] [id number] Univers 20:42:00 20:42:00 FELIPE ity of [facility] 2021-05-22 2021-05-22 Emergency Elliot [facility] 1.2.068.069 [id number] Univers 18:37:00 21:40:00 Gabriella Richard Pati [id number] ity of [place] 4.2.7.2.686 [facility] [id number] [address] 2021-05-22 2021-05-22 Emergency X [facility] ERT [id number] Univers 18:31:00 18:31:00 ity of [facility] 2021-05-07 2021-05-07 Imm/Inj Nurse, Adc Pob Immunization [facility] 1.2.840.114 [id number] Univers 11:11:35 11:11:42 Visit David Clarke 350.1.13 .10 ity of [place] 4.[address] [place] [address] Professio [id number] Mo dical [address] 2021-05-01 2021-05-01 Emergency Mckinley, [facility] 1.2.840.114 [id number] Univers 19:09:00 20:46:00 Nikhil Pati [id number] i ty of [place] [address] [place] [id number] 2021-05-01 2021-05-01 Emergency X [facility] ERT [id number] Univers 18:53:00 18:53:00 ity [facility] 2021-04-01 2021-04-01 Emergency Mckinley, [facility] 1.2.840.114 [id number] 20:06:00 21:56:00 Nikhil Pati 350.1.13.10 [place] [address] [place] [address] [phone] [facility] 2021-04-01 2021-04-01 Emergency Mckinley, [facility] 1.2.840.114 [id number] Univers 20:06:00 21:56:00 Nikhil Pati 350.1.13.10 i ty of [place] [address] [place] [id number] 2021-04-01 2021-04-01 Emergency X MCKINLEY, [facility] ERT [id number] Univers 20:06:00 20:06:00 NIKHIL ity [facility] 2021-03-17 2021-03-17 Emergency Mckinley, [facility] 1.2.840.114 [id number] 20:09:00 22:19:00 Nikhil Krueger 350.1.13.10 [place] 4.2.7.2.686 [place] [id number] 084 2021-03-17 2021-03-17 Emergency Mckinley, [facility] 1.2.840.114 [id number] Univers 20:09:00 22:19:00 Nikhil Krueger 350.1.13.10 i ty [place] [id number] [address] 2021-03-17 2021-03-17 Emergency X [facility] ERT [id number] Univers 19:56:00 19:56:00 ity [facility] 2020-11-15 2020-11-15 KARL Vega 1.2.840.114 [id number] Univers 00:00:00 00:00:00 (Out) Mirna PRADO 350.1.13.10 it y of HOSPITAL 4.2.7.2.686 [place] [id number] [address] 2020-11-15 2020-11-15 Telephone KARL Laurent2.287.815 [id number] Univers 00:00:00 00:00:00 Patient EVE 350.1.13.10 it y of [place] [id number] [address] 2020-11-15 2020-11-15 Telephone KARL Laurent2.974.669 [id number] 00:00:00 00:00:00 Patient EVE 350.1.13.10 Does Not HOSPITAL 4.2.7.2.686 Have A [id number] 2020-11-15 2020-11-15 KARL Vega 1Balta2.840.114 [id number] 00:00:00 00:00:00 (Out) Mirna PRADO 350.1.13.10 HOSPITAL 4.2.7.2.686 [id number] 2020-11-14 2020-11-14 Emergency [facility] 1.2.659.532 [id number] Univers 21:29:00 22:55:00 Darnlel Krueegr 350.1.13.10 i ty of [place] 4.2.7.2.686 [facility] [id number] [place] [address] [place] 2020-11-14 2020-11-14 Emergency [facility] 1.2.289.486 [id number] 21:29:00 22:55:00 Darnell Krueger 350.1.13.10 [place] 4.2.7.2.686 [place] [id number] 2020-09-30 2020-09-30 Emergency [facility] 1.2.840.114 [id number] [facility] 08:03:00 10:45:00 Jessy Krueger 350.1.13.10 ity of [place] 4.2.7.2.686 [facility] [id number] [address] 2020-09-30 2020-09-30 [facility] 1.2.840.114 [id number] 08:03:00 10:45:00 Jessy Krueger 350.1.13.10 [place] 4.2.7.2.686 [place] [id number] 2020-09-30 2020-09-30 Emergency X [facility] ERT [id number] Univers 07:58:00 07:58:00 ity of [facility] 2020-09-30 2020-09-30 Orders Doctor BARAJAS 1.2.840.114 [id number] Univers 00:00:00 00:00:00 Only Unassigned, EVE 350.1.13.10 ity of [place] [facility] 4.2.7.2.686 Jim [id number] [place] [address] Branch 2020-09-30 2020-09-30 Orders Doctor BARAJAS 1.2.840.114 [id number] 00:00:00 00:00:00 Only Unassigned, EVE 350.1.13.10 [place] [facility] 4.2.7.2.686 [id number] 2020-07-01 2020-07-01 Emergency [facility] 1.2.840.114 [id number] [facility] 21:58:00 23:54:00 Felipechanda Krueger 350.1.13.10 i ty of [place] 4.2.7.2.686 [facility] [id number] [place] [address] Branch 2020-07-01 2020-07-01 Emergency [place], [facility] 1.2.840.114 [id number] 21:58:00 23:54:00 Felipe Krueger 350.1.13.10 [place] 4.2.7.2.686 [place] [id number] [facility] 2020-07-01 2020-07-01 Emergency X P[place], [facility] ERT [id number] Univers 21:58:00 21:58:00 FELIPE ity [facility] Results Test Description Test Time Test Comments Results Result Comments Source BASIC METABOLIC PANEL (NA, K, CL, CO2, GLUCOSE, BUN, 2021-10 10:40:12 CREATININE, CA) Test Item Value Reference Range Interpretation Comme nts NA (test code = 9521149104) 136 mmol/L 135-145 K (test code = 5549862193) 4.2 mmol/L 3.5-5.0 CL (test code = 9307310344) 104 mmol/L 98-108 CO2 TOTAL (test code = 5811013642) 31 mmol/L 23-31 AGAP (test code = 8082817190) 2-16 L BUN (test code = 5668825222) 15 mg/dL 7-23 GLUCOSE (test code = 4360047133) 91 mg/dL 70-110 CREATININE (test code = 0.96 mg/dL 0.60-1.25 5295262460) CALCIUM (test code = 1539465736) 8.5 mg/dL 8.6-10.6 L eGFR (test code = 4509475566) mL/min/1.73m2 KRYSTLE (test code = KRYSTLE) Association [...] tests). Lab Interpretation (test code = Abnormal 47532-6) [facility]22-[facility] 10:40:12 Test Item Value Reference Range Interpretation Comments MAGNESIUM (test code = 2350548491) 1.7 mg/dL 1.7-2.4 Lab Interpretation (test code = Normal 72776-6) [facility]2022-02-18 10:39:52 Test Item Value Reference Range Interpretation Comments PHOSPHORUS (test code = 4191991583) 4.4 mg/dL 2.5-5.0 Lab Interpretation (test code = Normal 52722-2) [facility] WITH [id number] 10:25:11 Test Item Value Reference Range Interpretation Comments WBC (test code = See_Comment [Automated 2275-2) message] The sy stem which generated this result transmitted reference range : 4.20 - 10.70 10*3/?L. The reference range was not used to interpret this result as normal/abnormal . RBC (test code = See_Comment [Automated 986-8) message] The sy stem which generated this [...] RDW-SD (test code = 38.5 fL 38.5-51.6 55881-1) RDW-CV (test code = 12.3 % 12.1-15.4 788-0) PLT (test code = See_Comment [Automated 777-3) message] The sy stem which generated this result transmitted reference range : 150 - 328 10*3/ ?L. The reference r andrea was not used to interpret this result as normal/abnormal . MPV (test code = 9.6 fL 9.8-13.0 L 38922-7) NRBC/100 WBC (test See_Comment [Automat ed code = 7510622632) message] The system which generated this result transmitted reference range : 0.0 - 10.0 /100 WBCs. The refer ence range was not u sed to interpret th is result as normal/abnormal . NRBC x10^3 (test code <0.01 See_Comment [Auto mated = 7733986952) message] The s ystem which generated this result transmitted reference range : 10*3/?L. The reference range was not used to interpret this result as normal/abnormal . GRAN MAT (NEUT) % 49.5 % (test code = 770-8) IMM GRAN % (test code 0.30 % = 0275207173) LYMPH % (test code = 39.4 % 736-9) MONO % (test code = 9.7 % 5905-5) EOS % (test code = 0.8 % 713-8) BASO % (test code = 0.3 % 706-2) GRAN MAT x10^3(ANC) 3.13 10*3/uL 1.99-6.95 (test code = 4537691872) IMM GRAN x10^3 (test <0.03 0.00-0.06 code = 5191629892) LYMPH x10^3 (test code 2.49 10*3/uL 1.09-3.23 = 731-0) MONO x10^3 (test code 0.61 10*3/uL 0.36-1.02 = 742-7) EOS x10^3 (test code = 0.05 10*3/uL 0.06-0.53 L 711-2) BASO x10^3 (test code <0.03 0.01-0.09 = 704-7) Lab Interpretation Abnormal (test code = 38825-4) [facility] [id number] 17:32:56 Test Item Value Reference Range Interpretation Comments NT-proBNP (test code 13 pg/mL See_Comment [Autom ated = 5893500771) message] The system which generated this result transmitted reference range : <=125. The reference range was not used to interpret this result as normal/abnormal . KRYSTLE (test code = KRYSTLE) Biotin has been reported to cause a negative bias, interpret results relative to patient's use of biotin. Lab Interpretation Normal (test code = 52080-4) [facility] [id number] 10:50:49 Test Item Value Reference Range Interpretation Comments NT-proBNP (test code <11 See_Comment [Autom ated = 0214868971) message] The system which generated this result transmitted reference range : <=125 pg/mL. Th e reference range was not used to interpret this result as normal/abnormal . KRYSTLE (test code = KRYSTLE) Biotin has been reported to cause a negative bias, interpret results relative to patient's use of biotin. Lab Interpretation Normal (test code = 38924-4) [facility] [id number] 10:36:56 Test Item Value Reference Interpretation Comments Range TROPONIN I (test 0.004 ng/mL See_Comment [Automated code = 5082229331) message] The system which generated this result [...] biotin. Lab Interpretation Normal (test code = 14906-7) [facility]. METABOLIC PANEL (28581)2021-10-31 10:33:50 Test Item Value Reference Range Interpretation Comments NA (test code = 139 mmol/L 135-145 5166766307) K (test code = 4.0 mmol/L 3.5-5.0 8032368310) CL (test code = 109 mmol/L 98-108 H 4126626534) CO2 TOTAL (test code = 27 mmol/L 23-31 5216271876) AGAP (test code = 2-16 5873598887) BUN (test code = 16 mg/dL 7-23 0436840754) GLUCOSE (test code = 97 mg/dL 70-110 4400293708) CREATININE (test code = 1.00 mg/dL 0.60-1.25 6982370933) TOTAL BILI (test code = 1.0 mg/dL 0.1-1.3 1090843722) CALCIUM (test code = 8.7 mg/dL 8.6-10.6 6073611799) T PROTEIN (test code = 7.9 g/dL 6.3-8.2 7970240518) ALBUMIN (test code = 4.4 g/dL 3.5-5.0 8940189999) ALK PHOS (test code = 60 U/L 34-122 9878354156) ALTv (test code = 56 U/L 5-50 H 1742-6) AST(SGOT) (test code = 49 U/L 13-40 H 0362403345) eGFR (test code = mL/min/1.73m2 5050502267) KRYSTLE (test code = KRYSTLE) Association of [...] tests). Lab Interpretation Abnormal (test code = 76650-6) [facility]ney[facility] [id number] 10:25:32 Test Item Value Reference Range Interpretation Comments MAGNESIUM (test code = 7933505681) 1.8 mg/dL 1.7-2.4 Lab Interpretation (test code = Normal 00315-1) [facility]2022-02-17 10:25:12 Test Item Value Reference Range Interpretation Comments PHOSPHORUS (test code = 8923833394) 3.9 mg/dL 2.5-5.0 Lab Interpretation (test code = Normal 63973-4) [facility]ney[facility] [id number] 10:24:52 Test Item Value Reference Range Interpretation Comments CK (test code = 5997096910) 215 U/L 33-194 H Lab Interpretation (test code = Abnormal 09757-7) [facility] with [id number] 10:18:09 Test Item Value Reference Range Interpretation [...] RDW-SD (test code = 41.3 fL 38.5-51.6 82806-9) RDW-CV (test code = 13.0 % 12.1-15.4 788-0) PLT (test code = See_Comment [Automated 777-3) message] The sy stem which generated this result transmitted reference range : 150 - 328 10*3/ ?L. The reference r andrea was not used to interpret this result as normal/abnormal . MPV (test code = 10.0 fL 9.8-13.0 04828-9) NRBC/100 WBC (test See_Comment [Automat ed code = 2505967421) message] The system which generated this result transmitted reference range : 0.0 - 10.0 /100 WBCs. The refer ence range was not u sed to interpret th is result as normal/abnormal . NRBC x10^3 (test code <0.01 See_Comment [Auto mated = 1465756065) message] The s ystem which generated this result transmitted reference range : 10*3/?L. The reference range was not used to interpret this result as normal/abnormal . GRAN MAT (NEUT) % 46.4 % (test code = 770-8) IMM GRAN % (test code 0.20 % = 3164188581) LYMPH % (test code = 44.0 % 736-9) MONO % (test code = 8.3 % 5905-5) EOS % (test code = 0.7 % 713-8) BASO % (test code = 0.4 % 706-2) GRAN MAT x10^3(ANC) 3.73 10*3/uL 1.99-6.95 (test code = 7581011736) IMM GRAN x10^3 (test <0.03 0.00-0.06 code = 4108443620) LYMPH x10^3 (test code 3.55 10*3/uL 1.09-3.23 H = 731-0) MONO x10^3 (test code 0.67 10*3/uL 0.36-1.02 = 742-7) EOS x10^3 (test code = 0.06 10*3/uL 0.06-0.53 711-2) BASO x10^3 (test code 0.03 10*3/uL 0.01-0.09 = 704-7) Lab Interpretation Abnormal (test code = 87374-2) [facility]neyPROTHROMBIN TIME / [id number] 10:18:09 Test Item Value Reference Range Interpretation [...] tions. Lab Interpretation (test Normal code = 64257-8) [facility]neyTR[facility] [id number] 07:43:50 Test Item Value Reference Interpretation Comments Range TROPONIN I (test 0.005 ng/mL See_Comment [Automated code = 7634991662) message] The system which generated this result [...] biotin. Lab Interpretation Normal (test code = 90693-1) [facility] [place]. METABOLIC PANEL ([id number])2021-10-30 20:56:25 Test Item Value Reference Range Interpretation Comments NA (test code = 139 mmol/L 135-145 8217682896) K (test code = 4.8 mmol/L 3.5-5.0 3256896411) CL (test code = 105 mmol/L 98-108 9628478201) CO2 TOTAL (test code = 26 mmol/L 23-31 4166326464) AGAP (test code = 2-16 2959710279) BUN (test code = 18 mg/dL 7-23 2673719077) GLUCOSE (test code = 135 mg/dL 70-110 H 6362206738) CREATININE (test code = 0.98 mg/dL 0.60-1.25 3478845687) TOTAL BILI (test code = 0.8 mg/dL 0.1-1.3 0357352225) CALCIUM (test code = 10.0 mg/dL 8.6-10.6 7932056538) T PROTEIN (test code = 10.3 g/dL 6.3-8.2 H 5309985156) ALBUMIN (test code = 5.5 g/dL 3.5-5.0 H 1835734195) ALK PHOS (test code = 74 U/L 34-122 8742293544) ALTv (test code = 69 U/L 5-50 H 1742-6) AST(SGOT) (test code = 59 U/L 13-40 H 3915041358) eGFR (test code = mL/min/1.73m2 0274568546) KRYSTLE (test code = KRYSTLE) Association of [...] tests). Lab Interpretation Abnormal (test code = 89248-2) [facility] 20[facility]56:05 Test Item Value Reference Range Interpretation Comments LIPASE (test code = 5970595751) 70 U/L 0-220 Lab Interpretation (test code = Normal 27859-5) [facility] WITH [id number] 20:34:20 Test Item Value Reference Range Interpretation Comments WBC (test code = See_Comment H [Automated 9490-2) message] The sy stem which generated this result transmitted reference range : 4.20 - 10.70 10*3/?L. The reference range was not used to interpret this result as normal/abnormal . RBC (test code = See_Comment H [Automated 729-8) message] The sy stem which generated this [...] RDW-SD (test code = 40.6 fL 38.5-51.6 11195-4) RDW-CV (test code = 12.8 % 12.1-15.4 788-0) PLT (test code = See_Comment [Automated 777-3) message] The sy stem which generated this result transmitted reference range : 150 - 328 10*3/ ?L. The reference r andrea was not used to interpret this result as normal/abnormal . MPV (test code = 9.2 fL 9.8-13.0 L 96656-4) NRBC/100 WBC (test See_Comment [Automat ed code = 0085265421) message] The system which generated this result transmitted reference range : 0.0 - 10.0 /100 WBCs. The refer ence range was not u sed to interpret th is result as normal/abnormal . NRBC x10^3 (test code <0.01 See_Comment [Auto mated = 7303359981) message] The s ystem which generated this result transmitted reference range : 10*3/?L. The reference range was not used to interpret this result as normal/abnormal . GRAN MAT (NEUT) % 67.1 % (test code = 770-8) IMM GRAN % (test code 0.40 % = 2160139616) LYMPH % (test code = 24.5 % 736-9) MONO % (test code = 7.6 % 5905-5) EOS % (test code = 0.1 % 713-8) BASO % (test code = 0.3 % 706-2) GRAN MAT x10^3(ANC) 7.34 10*3/uL 1.99-6.95 H (test code = 8996789352) IMM GRAN x10^3 (test 0.04 10*3/uL 0.00-0.06 code = 7024980306) LYMPH x10^3 (test code 2.67 10*3/uL 1.09-3.23 = 731-0) MONO x10^3 (test code 0.83 10*3/uL 0.36-1.02 = 742-7) EOS x10^3 (test code = <0.03 0.06-0.53 L 711-2) BASO x10^3 (test code 0.03 10*3/uL 0.01-0.09 = 704-7) Lab Interpretation Abnormal (test code = 64593-9) [facility] [id number] 05:55:54 Test Item Value Reference Range Interpretation Comments CK (test code = 4083503378) 3682 U/L 33-194 H Lab Interpretation (test code = Abnormal 37412-6) [facility] [id number] 05:55:54 Test Item Value Reference Range Interpretation Comments CK (test code = 4283613591) 3682 U/L 33-194 H Lab Interpretation (test code = Abnormal 78969-0) [facility] (NA, K, CL, CO2, GLUCOSE, BUN, CREATININE, CA)2021-05-24 05:02:27 Test Item Value Reference Range Interpretation Comments NA (test code = 137 mmol/L 135-145 6469478764) K (test code = 3.6 mmol/L 3.5-5.0 9719470691) CL (test code = 105 mmol/L 98-108 5713388185) CO2 TOTAL (test code = 23 mmol/L 23-31 2038716274) AGAP (test code = 2-16 3638510335) BUN (test code = 26 mg/dL 7-23 H 7428765077) GLUCOSE (test code = 95 mg/dL 70-110 0676552355) CREATININE (test code = 1.31 mg/dL 0.60-1.25 H 5534059641) CALCIUM (test code = 8.6 mg/dL 8.6-10.6 4617479871) eGFR (test code = mL/min/1.73m2 5907400869) KRYSTLE (test code = KRYSTLE) Association of [...] tests). Lab Interpretation Abnormal (test code = 31384-1) [facility] METABOLIC PANEL (NA, K, CL, CO2, GLUCOSE, BUN, CREATININE, CA)2021-05-24 05:02:27 Test Item Value Reference Range Interpretation Comments NA (test code = 137 mmol/L 135-145 3154815613) K (test code = 3.6 mmol/L 3.5-5.0 1684498923) CL (test code = 105 mmol/L 98-108 2090973428) CO2 TOTAL (test code = 23 mmol/L 23-31 2293718082) AGAP (test code = 2-16 4708113039) BUN (test code = 26 mg/dL 7-23 H 9472827626) GLUCOSE (test code = 95 mg/dL 70-110 2939618214) CREATININE (test code = 1.31 mg/dL 0.60-1.25 H 0664206702) CALCIUM (test code = 8.6 mg/dL 8.6-10.6 1852131298) eGFR (test code = mL/min/1.73m2 8011428848) KRYSTLE (test code = KRYSTLE) Association of [...] tests). Lab Interpretation Abnormal (test code = 04118-6) [facility]neyTRLYNETTE [id number] 02:56:10 Test Item Value Reference Interpretation Comments Range TROPONIN I (test 0.004 ng/mL See_Comment [Automated code = 2814285505) message] The system which generated this result [...] biotin. Lab Interpretation Normal (test code = 57597-6) [facility] [id number] 02:56:10 Test Item Value Reference Interpretation Comments Range TROPONIN I (test 0.004 ng/mL See_Comment [Automated code = 8789721458) message] The system which generated this result [...] biotin. Lab Interpretation Normal (test code = 72539-9) [facility] [id number] 02:41:54 Test Item Value Reference Range Interpretation Comments CK (test code = 7445685751) 4607 U/L 33-194 H Lab Interpretation (test code = Abnormal 24717-8) [facility] [id number] 02:41:54 Test Item Value Reference Range Interpretation Comments CK (test code = 4573346858) 4607 U/L 33-194 H Lab Interpretation (test code = Abnormal 45205-5) [facility] [id number] 02:33:28 Test Item Value Reference Range Interpretation Comments NT-proBNP (test code 14 pg/mL See_Comment [Autom ated = 8287978046) message] The system which generated this result transmitted reference range : <=125. The reference range was not used to interpret this result as normal/abnormal . KRYSTLE (test code = KRYSTLE) Biotin has been reported to cause a negative bias, interpret results relative to patient's use of biotin. Lab Interpretation Normal (test code = 32229-4) [facility] [id number] 02:33:28 Test Item Value Reference Range Interpretation Comments NT-proBNP (test code 14 pg/mL See_Comment [Autom ated = 3730759597) message] The system which generated this result transmitted reference range : <=125. The reference range was not used to interpret this result as normal/abnormal . KRYSTLE (test code = KRYSTLE) Biotin has been reported to cause a negative bias, interpret results relative to patient's use of biotin. Lab Interpretation Normal (test code = 79526-7) [facility]ney[facility]2021-09-10 02:29:35 Test Item Value Reference Range Interpretation Comments APPEARANCE (test code = Clear Clear 4528057790) COLOR (test code = Yellow Yellow 3326221545) PH (test code = 4.8-8.0 2322212406) SP GRAVITY (test code = 1.003-1.030 9032564585) GLU U QUAL (test code = Normal Normal 2675682958) BLOOD (test code = Negative Negative 1723168882) KETONES (test code = Negative Negative 4890973591) PROTEIN (test code = Negative Negative 2887-8) UROBILIN (test code = 2.0 mg/dL Normal A 7127719622) BILIRUBIN (test code = Negative Negative 3885952850) NITRITE (test code = Negative Negative 3600407450) LEUK MO (test code = Negative Negative 5259229560) RBC/HPF (test code = See_Comment [Autom ated message] 3092984032) The system [employer] generated this result transmit delvin reference range : 0 - 3 HPF. The refe rence range was not u sed to interpret th is result as normal/abnormal . WBC/HPF (test code = See_Comment [Autom ated message] 7344321422) The system [employer] generated this result transmit delvin reference range : 0 - 5 HPF. The refe rence range was not u sed to interpret th is result as normal/abnormal . BACTERIA (test code = Negative Negative 0312740389) MUCOUS (test code = Slight Negative LPF A 2276292223) SQ EPITH (test code = <1 HPF 1193782659) Lab Interpretation (test Abnormal code = 21138-0) [facility]2021-09-10 02:29:35 Test Item Value Reference Range Interpretation Comments APPEARANCE (test code = Clear Clear 9152779636) COLOR (test code = Yellow Yellow 9297747362) PH (test code = 4.8-8.0 2666549500) SP GRAVITY (test code = 1.003-1.030 4558515879) GLU U QUAL (test code = Normal Normal 8217186088) BLOOD (test code = Negative Negative 4428820144) KETONES (test code = Negative Negative 8396310972) PROTEIN (test code = Negative Negative 2887-8) UROBILIN (test code = 2.0 mg/dL Normal A 8223665268) BILIRUBIN (test code = Negative Negative 2272965389) NITRITE (test code = Negative Negative 5295809622) LEUK MO (test code = Negative Negative 9379433609) RBC/HPF (test code = See_Comment [Autom ated message] 5784167804) The system [employer] generated this result transmit delvin reference range : 0 - 3 HPF. The refe rence range was not u sed to interpret th is result as normal/abnormal . WBC/HPF (test code = See_Comment [Autom ated message] 1843892777) The system [employer] generated this result transmit delvin reference range : 0 - 5 HPF. The refe rence range was not u sed to interpret th is result as normal/abnormal . BACTERIA (test code = Negative Negative 2939910621) MUCOUS (test code = Slight Negative LPF A 7481791287) SQ EPITH (test code = <1 HPF 8692671549) Lab Interpretation (test Abnormal code = 72976-4) [facility] METABOLIC PANEL (31972)2021-05-24 02:25:07 Test Item Value Reference Range Interpretation Comments NA (test code = 137 mmol/L 135-145 1252754020) K (test code = 3.1 mmol/L 3.5-5.0 L 7178147204) CL (test code = 102 mmol/L 98-108 0016914797) CO2 TOTAL (test code = 22 mmol/L 23-31 L 9462637547) AGAP (test code = 2-16 9553674953) BUN (test code = 28 mg/dL 7-23 H 2150834675) GLUCOSE (test code = 132 mg/dL 70-110 H 6578262691) CREATININE (test code = 1.77 mg/dL 0.60-1.25 H 4757691748) TOTAL BILI (test code = 1.0 mg/dL 0.1-1.8 8684183429) CALCIUM (test code = 9.4 mg/dL 8.6-10.6 4798686144) T PROTEIN (test code = 9.4 g/dL 6.3-8.2 H 6754182628) ALBUMIN (test code = 5.0 g/dL 3.5-5.0 8208736694) ALK PHOS (test code = 79 U/L 34-122 0839458531) ALTv (test code = 112 U/L 5-50 H 1742-6) AST(SGOT) (test code = 152 U/L 13-40 H 4086330884) eGFR (test code = mL/min/1.73m2 9726404456) KRYSTLE (test code = KRYSTLE) Association of [...] tests). Lab Interpretation Abnormal (test code = 21401-1) [facility]. METABOLIC PANEL (02630)2021-05-24 02:25:07 Test Item Value Reference Range Interpretation Comments NA (test code = 137 mmol/L 135-145 0919568727) K (test code = 3.1 mmol/L 3.5-5.0 L 9032038943) CL (test code = 102 mmol/L 98-108 7141241147) CO2 TOTAL (test code = 22 mmol/L 23-31 L 2344717017) AGAP (test code = 2-16 1463651552) BUN (test code = 28 mg/dL 7-23 H 8835725475) GLUCOSE (test code = 132 mg/dL 70-110 H 3206757170) CREATININE (test code = 1.77 mg/dL 0.60-1.25 H 3816108184) TOTAL BILI (test code = 1.0 mg/dL 0.1-1.0 9394394861) CALCIUM (test code = 9.4 mg/dL 8.6-10.6 2831912146) T PROTEIN (test code = 9.4 g/dL 6.3-8.2 H 6237973206) ALBUMIN (test code = 5.0 g/dL 3.5-5.0 7843534984) ALK PHOS (test code = 79 U/L 34-122 0530894669) ALTv (test code = 112 U/L 5-50 H 1742-6) AST(SGOT) (test code = 152 U/L 13-40 H 0035280626) eGFR (test code = mL/min/1.73m2 9050542813) KRYSTLE (test code = KRYSTLE) Association of [...] tests). Lab Interpretation Abnormal (test code = 59196-5) [facility] WITH [id number] 02:03:22 Test Item Value Reference Range Interpretation Comments WBC (test code = See_Comment [Automated 0262-2) message] The sy stem which generated this result transmitted reference range : 4.20 - 10.70 10*3/?L. The reference range was not used to interpret this result as normal/abnormal . RBC (test code = See_Comment [Automated 974-8) message] The sy stem which generated this [...] RDW-SD (test code = 39.7 fL 38.5-51.6 08630-7) RDW-CV (test code = 12.7 % 12.1-15.4 788-0) PLT (test code = See_Comment [Automated 777-3) message] The sy stem which generated this result transmitted reference range : 150 - 328 10*3/ ?L. The reference r andrea was not used to interpret this result as normal/abnormal . MPV (test code = 9.7 fL 9.8-13.0 L 75444-5) NRBC/100 WBC (test See_Comment [Automat ed code = 4833602988) message] The system which generated this result transmitted reference range : 0.0 - 10.0 /100 WBCs. The refer ence range was not u sed to interpret th is result as normal/abnormal . NRBC x10^3 (test code <0.01 See_Comment [Auto mated = 5611415321) message] The s ystem which generated this result transmitted reference range : 10*3/?L. The reference range was not used to interpret this result as normal/abnormal . GRAN MAT (NEUT) % 45.9 % (test code = 770-8) IMM GRAN % (test code 0.20 % = 6428568240) LYMPH % (test code = 41.7 % 736-9) MONO % (test code = 11.6 % 5905-5) EOS % (test code = 0.3 % 713-8) BASO % (test code = 0.3 % 706-2) GRAN MAT x10^3(ANC) 3.95 10*3/uL 1.99-6.95 (test code = 1947268986) IMM GRAN x10^3 (test <0.03 0.00-0.06 code = 9209281369) LYMPH x10^3 (test code 3.60 10*3/uL 1.09-3.23 H = 731-0) MONO x10^3 (test code 1.00 10*3/uL 0.36-1.02 = 742-7) EOS x10^3 (test code = 0.03 10*3/uL 0.06-0.53 L 711-2) BASO x10^3 (test code 0.03 10*3/uL 0.01-0.09 = 704-7) Lab Interpretation Abnormal (test code = 71307-1) [facility] WITH [id number] 02:03:22 Test Item Value Reference Range Interpretation [...] RDW-SD (test code = 39.7 fL 38.5-51.6 47219-7) RDW-CV (test code = 12.7 % 12.1-15.4 788-0) PLT (test code = See_Comment [Automated 777-3) message] The sy stem which generated this result transmitted reference range : 150 - 328 10*3/ ?L. The reference r andrea was not used to interpret this result as normal/abnormal . MPV (test code = 9.7 fL 9.8-13.0 L 25253-6) NRBC/100 WBC (test See_Comment [Automat ed code = 6793511185) message] The system which generated this result transmitted reference range : 0.0 - 10.0 /100 WBCs. The refer ence range was not u sed to interpret th is result as normal/abnormal . NRBC x10^3 (test code <0.01 See_Comment [Auto mated = 7819192748) message] The s ystem which generated this result transmitted reference range : 10*3/?L. The reference range was not used to interpret this result as normal/abnormal . GRAN MAT (NEUT) % 45.9 % (test code = 770-8) IMM GRAN % (test code 0.20 % = 3149160901) LYMPH % (test code = 41.7 % 736-9) MONO % (test code = 11.6 % 5905-5) EOS % (test code = 0.3 % 713-8) BASO % (test code = 0.3 % 706-2) GRAN MAT x10^3(ANC) 3.95 10*3/uL 1.99-6.95 (test code = 4733987164) IMM GRAN x10^3 (test <0.03 0.00-0.06 code = 9594874574) LYMPH x10^3 (test code 3.60 10*3/uL 1.09-3.23 H = 731-0) MONO x10^3 (test code 1.00 10*3/uL 0.36-1.02 = 742-7) EOS x10^3 (test code = 0.03 10*3/uL 0.06-0.53 L 711-2) BASO x10^3 (test code 0.03 10*3/uL 0.01-0.09 = 704-7) Lab Interpretation Abnormal (test code = 00858-6) [facility] (ID NOW RAPID TESTING)2021-05-02 00:31:00 Test Item Value Reference Range Interpretation Comments SARS-CoV-2 Rapid ID NOW Not Detected Not Detected (test code = 14869-4) KRYSTLE (test code = KRYSTLE) ID NOW COVID-19 Assay is an isothermal nucleic acid amplification test intended for the qualitative detection of nucleic acid from SARS-CoV-2 viral RNA in nasopharyngeal (MANAGER ANALYTICAL) specimens. It is used under Emergency Use [...] indicated. Lab Interpretation Normal (test code = 39361-6) [facility] STREP SCREEN FOR GROUP [id number] 00:25:45 Test Item Value Reference Range Interpretation Comments Streptococcus pyogenes (group A) Negative Negative antigen (test code = 38598-9) Lab Interpretation (test code = Normal 38165-9) [facility] (ID NOW RAPID TESTING)2021-04-02 01:41:42 Test Item Value Reference Range Interpretation Comments SARS-CoV-2 Rapid ID NOW Not Detected Not Detected (test code = 49985-1) KRYSTLE (test code = KRYSTLE) ID NOW COVID-19 Assay is an isothermal nucleic acid amplification test intended for the qualitative detection of nucleic acid from SARS-CoV-2 viral RNA in nasopharyngeal (MANAGER ANALYTICAL) specimens. It is used under Emergency Use [...] indicated. Lab Interpretation Normal (test code = 40587-4) [facility] STREP SCREEN FOR GROUP [id number] 01:39:31 Test Item Value Reference Range Interpretation Comments Streptococcus pyogenes (group A) Negative Negative antigen (test code = 44354-7) Lab Interpretation (test code = Normal 05952-3) [facility] 3+ VW [id number] 02:41:03 Impression: No acute osseous abnormality. AFC: [id number] of Report Exam: XR WRIST 3+ [...] soft tissue edema.IMPRESSIONImpression: No acute osseous abnormality.AFC: [id number] of Report [facility] 01:32:01 Test Item Value Reference Range Interpretation Comments APPEARANCE (test code = Clear Clear 6164617443) COLOR (test code = Yellow Yellow 1206388934) PH (test code = 4.8-8.0 5999191541) SP GRAVITY (test code = 1.003-1.030 4654039442) GLU U QUAL (test code = Normal Normal 2558023643) BLOOD (test code = Negative Negative 9204653181) KETONES (test code = Negative Negative 7952506009) PROTEIN (test code = Negative Negative 2887-8) UROBILIN (test code = 2.0 mg/dL Normal A 7596804701) BILIRUBIN (test code = Negative Negative 2433941128) NITRITE (test code = Negative Negative 8778562767) LEUK MO (test code = Negative Negative 8072562128) RBC/HPF (test code = See_Comment [Autom ated message] 8335137674) The system [employer] generated this result transmit delvin reference range : 0 - 3 HPF. The refe rence range was not u sed to interpret th is result as normal/abnormal . WBC/HPF (test code = See_Comment [Autom ated message] 4898263714) The system [employer] generated this result transmit delvin reference range : 0 - 5 HPF. The refe rence range was not u sed to interpret th is result as normal/abnormal . BACTERIA (test code = Few Negative A 6523770553) MUCOUS (test code = Slight Negative LPF A 6580399403) SQ EPITH (test code = <1 HPF 2786759073) Lab Interpretation (test Abnormal code = 21786-2) [facility] 1 [id number] 04:09:05Impression: Mild thickening of the sol of the central airways, possibly reflectinginfectious or inflammatory bronchitis. RL: 460 AFC: [id number] Ordering physician: DARNELL HSU Indication: Cough and [...] airways, possibly reflectinginfectious or inflammatory bronchitis.RL: 460AFC: [id number] signed by MD Man, PhD at 11/14/2020 10:09 PM [facility] [id number] 15:43:00 Test Item Value Reference Range Interpretation Comments NT-proBNP (test code <11 See_Comment [Autom ated = 2069849108) message] The system which generated this result transmitted reference range : <=125 pg/mL. Th e reference range was not used to interpret this result as normal/abnormal . KRYSTLE (test code = KRYSTLE) Biotin has been reported to cause a negative bias, interpret results relative to patient's use of biotin. Lab Interpretation Normal (test code = 30201-9) [facility] WITH [id number] 15:27:00 Test Item Value Reference Range Interpretation [...] (test code = 37.3 fL 38.5-51.6 L 09510-7) RDW-CV (test code = 11.9 % 12.1-15.4 L 788-0) PLT (test code = See_Comment [Automated 777-3) message] The sy stem which generated this result transmitted reference range : 150 - 328 10*3/ ?L. The reference r andrea was not used to interpret this result as normal/abnormal . MPV (test code = 9.7 fL 9.8-13 L 63588-1) NRBC/100 WBC (test See_Comment [Automat ed code = 3948458529) message] The system which generated this result transmitted reference range : 0.0 - 10.0 /100 WBCs. The refer ence range was not u sed to interpret th is result as normal/abnormal . NRBC x10^3 (test code <0.01 See_Comment [Auto mated = 3116152504) message] The s ystem which generated this result transmitted reference range : 10*3/?L. The reference range was not used to interpret this result as normal/abnormal . GRAN MAT (NEUT) % 29.2 % (test code = 770-8) IMM GRAN % (test code 0.20 % = 0706889935) LYMPH % (test code = 59.0 % 736-9) MONO % (test code = 10.1 % 5905-5) EOS % (test code = 1.1 % 713-8) BASO % (test code = 0.4 % 706-2) GRAN MAT x10^3(ANC) 1.57 10*3/uL 1.99-6.95 L (test code = 5604224191) IMM GRAN x10^3 (test <0.03 0-0.06 code = 2388350569) LYMPH x10^3 (test code 3.17 10*3/uL 1.09-3.23 = 731-0) MONO x10^3 (test code 0.54 10*3/uL 0.36-1.02 = 742-7) EOS x10^3 (test code = 0.06 10*3/uL 0.06-0.53 711-2) BASO x10^3 (test code <0.03 0.01-0.09 = 704-7) Lab Interpretation Abnormal (test code = 60168-2) [facility] [id number] 15:13:32 No acute cardiopulmonary process. Preliminary Report Dictated by Resident: Luiz Alcaraz?MD Shubham., have reviewed this study and agree withthe above report.PROCEDURE: XR CHEST 1 VW CLINICAL INDICATION: dizzy TECHNIQUE: Frontal chest radiograph was obtained. COMPARISON: None FINDINGS: The lungs are clear. No pleural effusion or pneumothorax is seen. The heart is normal in siz e. No acute bony abnormality is noted. [facility], Radiant Results Inft - 09/30/2020 9:14 AM CSTPROCEDURE: XR CHEST 1 VWCLINICAL INDICATION: dizzy TECHNIQUE: Frontal chest radiograph was obtained.COMPARISON: NoneFINDINGS:The lungs are clear. No pleural effusion or pneumothorax is seen. The heart is nor mal in size.No acute bony abnormality is noted.IMPRESSIONNo acute cardiopulmonary process.Preliminary Report Dictated by Resident: Luiz Ruiz MD., have reviewed this study and agree withthe above report.[facility]ney[facility]OP[facility] [id number] 14:59:00 Test Item Value Reference Range Interpretation Comments TROPONIN I (test <0.012 See_Comment [Automated code = 3160504806) message] The system which generated this result [...] ? Lab Interpretation Normal (test code = 59986-8) [facility] [place]. METABOLIC PANEL (27872)2020-09-30 14:59:00 Test Item Value Reference Range Interpretation Comments NA (test code = 139 mmol/L 135-145 2973534788) K (test code = 3.8 mmol/L 3.5-5 6632028084) CL (test code = 103 mmol/L 98-108 9049453202) CO2 TOTAL (test code = 26 mmol/L 23-31 3452088864) AGAP (test code = 2-16 1218380032) BUN (test code = 11 mg/dL 7-23 4536107298) GLUCOSE (test code = 163 mg/dL 70-110 H 3270739527) CREATININE (test code = 0.85 mg/dL 0.6-1.25 4494036698) TOTAL BILI (test code = 0.6 mg/dL 0.1-1.3 8634585474) CALCIUM (test code = 9.0 mg/dL 8.6-10.6 3808047669) T PROTEIN (test code = 8.0 g/dL 6.3-8.2 4370070438) ALBUMIN (test code = 4.4 g/dL 3.5-5 1674224401) ALK PHOS (test code = 75 U/L 34-122 7890299696) ALTv (test code = 61 U/L 5-50 H 1742-6) AST(SGOT) (test code = 54 U/L 13-40 H 2137794582) eGFR Calculation mL/min/1.73m2 (Non-) (test code = 8947691768) eGFR Calculation mL/min/1.73m2 () (test code = 5026141986) KRYSTLE (test code = KRYSTLE) Association of [...] tests). Lab Interpretation Abnormal (test code = 05765-4) [facility], [id number] 14:59:00 Test Item Value Reference Range Interpretation Comments LIPASE (test code = [id number]) 116 U/L 0-220 Lab Interpretation (test code = Normal 30647-5) [facility] [id number] 04:30:00 Test Item Value Reference Range Interpretation Comments TROPONIN I (test <0.012 See_Comment [Automated code = 7761110213) message] The system which generated this result [...] ? Lab Interpretation Normal (test code = 26704-4) [facility] Metabolic [id number] 03:24:00 Test Item Value Reference Range Interpretation Comments NA (test code = 137 mmol/L 135-145 9460613123) K (test code = 4.7 mmol/L 3.5-5 0608741264) CL (test code = 101 mmol/L 98-108 9216866204) CO2 TOTAL (test code = 27 mmol/L 23-31 1214535468) AGAP (test code = 2-16 0029586512) BUN (test code = 16 mg/dL 7-23 7847308857) GLUCOSE (test code = 226 mg/dL 70-110 H 1435714681) CREATININE (test code = 1.13 mg/dL 0.6-1.25 0695933954) TOTAL BILI (test code = 0.7 mg/dL 0.1-1.7 5566807674) CALCIUM (test code = 9.3 mg/dL 8.6-10.6 0806034558) T PROTEIN (test code = 7.8 g/dL 6.3-8.2 5925156239) ALBUMIN (test code = 3.9 g/dL 3.5-5 8149762264) ALK PHOS (test code = 79 U/L 34-122 8576809638) ALTv (test code = 62 U/L 5-50 H 1742-6) AST(SGOT) (test code = 49 U/L 13-40 H 3026779015) eGFR Calculation mL/min/1.73m2 (Non-) (test code = 1895542699) eGFR Calculation mL/min/1.73m2 () (test code = 0909714002) KRYSTLE (test code = KRYSTLE) Association of [...] tests). Lab Interpretation Abnormal (test code = 34116-6) [facility], [id number] 03:23:00 Test Item Value Reference Range Interpretation Comments LIPASE (test code = 6022505730) 317 U/L 0-220 H Lab Interpretation (test code = Abnormal 69439-7) [facility]CB with [id number] 03:21:00 Test Item Value Reference Range Interpretation Comments WBC (test code = See_Comment [Automated 6904-2) message] The sy stem which generated this result transmitted reference range : 4.20 - 10.70 10*3/?L. The reference range was not used to interpret this result as normal/abnormal . RBC (test code = See_Comment [Automated 663-4) message] The sy stem which generated this [...] (test code = 37.9 fL 38.5-51.6 L 31582-1) RDW-CV (test code = 12.4 % 12.1-15.4 788-0) PLT (test code = See_Comment [Automated 777-3) message] The sy stem which generated this result transmitted reference range : 150 - 328 10*3/ ?L. The reference r andrea was not used to interpret this result as normal/abnormal . MPV (test code = 9.7 fL 9.8-13 L 06006-2) NRBC/100 WBC (test See_Comment [Automat ed code = 3475957688) message] The system which generated this result transmitted reference range : 0.0 - 10.0 /100 WBCs. The refer ence range was not u sed to interpret th is result as normal/abnormal . NRBC x10^3 (test code <0.01 See_Comment [Auto mated = 4683202876) message] The s ystem which generated this result transmitted reference range : 10*3/?L. The reference range was not used to interpret this result as normal/abnormal . GRAN MAT (NEUT) % 36.7 % (test code = 770-8) IMM GRAN % (test code 0.10 % = 9949478244) LYMPH % (test code = 50.9 % 736-9) MONO % (test code = 11.1 % 5905-5) EOS % (test code = 0.8 % 713-8) BASO % (test code = 0.4 % 706-2) GRAN MAT x10^3(ANC) 2.59 10*3/uL 1.99-6.95 (test code = 9431574978) IMM GRAN x10^3 (test <0.03 0-0.06 code = 7213723871) LYMPH x10^3 (test code 3.61 10*3/uL 1.09-3.23 H = 731-0) MONO x10^3 (test code 0.79 10*3/uL 0.36-1.02 = 742-7) EOS x10^3 (test code = 0.06 10*3/uL 0.06-0.53 711-2) BASO x10^3 (test code 0.03 10*3/uL 0.01-0.09 = 704-7) Lab Interpretation Abnormal (test code = 92966-6) [facility]"
[2022-03-05] MEDS ORDERED: NA CHLORIDE 0.9% 1,000 ML ONE ×2 (13:48→15:10)
[2022-03-05] MEDS ORDERED: ACETAMINOPHEN 500 MG TAB ONE (13:48)
[2022-03-05 13:49] LABS: Urine Blood Negative (Negative); Urine Glucose Negative (Negative); Urine Protein Negative (Negative); Urine Specific Gravity >=1.030 (1.005-1.030); Urine pH 5.5 (5.0-7.0)
--- NOTE | 2022-03-05 14:07 | RAD REPORT ---
EXAM DESCRIPTION: CT - Head Brain Wo Cont - 03/05/2022 1:51 pm CLINICAL HISTORY: Headache COMPARISON: Head angio dated 10/14/2021; Ct Stroke Brain Wo Cont dated 10/14/2021 TECHNIQUE: All CT scans are performed using dose optimization technique as appropriate and may inclu de automated exposure control or mA/KV adjustment according to patient size. FINDINGS: No intracranial hemorrhage, hydrocephalus or extra-axial fluid collection.No areas of brai n edema or evidence of midline shift. The paranasal sinuses and mastoids are clear. The calvarium is intact. IMPRESSION: No acute intracranial abnormality.
[2022-03-05 14:10] LABS: Absolute Lymphocytes (CBC) 3.2 K/uL (0.7-4.9); Hematocrit 46.1 % (39.6-49.0); Lymphocytes % 44.3 % (15.3-44.8); MPV 7.4 fL (7.6-11.3); RBC Red Blood Cell Count 5.35 M/uL (4.33-5.43)
[2022-03-05 14:25] LABS: Albumin 4.1 g/dL (3.4-5.0); Bilirubin Total 0.4 mg/dL (0.2-1.0); Potassium 3.8 mmol/L (3.5-5.1); Protein, Total 8.5 g/dL (6.4-8.2)
--- NOTE | 2022-03-05 16:22 | ER ---
Nurse's Notes [facility] Name: Noah Putnam Age: 51 yrs Sex: Male : 1970 Arrival Date: 03/05/2022 Time: 12:38 Bed 26 Private MD: Diagnosis: Dehydration;Rhabdomyolysis Presentation: 03/05 12:50 Chief complaint:. Chief complaint: Patient states: Headache that began 4 days ago with ss dizziness. Pt states, "I think it's from the heat, but I'm not sure.". Coronavirus screen: Client denies travel out of the [place] in the last 14 days. Ebola Screen: Patient denies exposure to infectious person. Patient denies travel to an Ebola-affected area in the 21 days before illness onset. Initial Sepsis Screen: Does the patient meet any 2 criteria? No. Patient's initial sepsis screen is negative. Does the patient have a suspected source of infection? No. Patient's initial sepsis screen is negative. Risk Assessment: Do you want to hurt yourself or someone else? Patient reports no desire to harm self or others. Note Pt states he has had an episode similar in the past and it was a heat related issue. Onset of symptoms was March 01, 2022. 12:50 Method Of Arrival: Ambulatory ss 12:50 Acuity: BREEZY 3 ss Triage Assessment: 16:31 General: Appears in no apparent distress. distressed, Behavior is calm, cooperative, bh1 appropriate for age. 16:31 Headache History: Denies prior headaches. Pain: Also complains of. Pain: Pain currently bh1 is 5 out of 10 on a pain scale. Pain began suddenly. Historical: - Allergies: 12:52 Bee Venom; ss - Home Meds: 12:52 amlodipine 10 mg tab 1 tab once daily [Active]; lisinopril 10 mg Oral tab 1 tab once ss daily [Active]; - PMHx: 12:52 chronic kidney disease; Herniated disc; Hypertension; ss - PSHx: 12:52 left arm surgery; ss - Immunization history:: Adult Immunizations up to date. - Social history:: Smoking status: Patient denies any tobacco usage or history of. Screenin:59 Abuse screen: Denies threats or abuse. Nutritional screening: No deficits noted. bh1 Tuberculosis screening: No symptoms or risk factors identified. Fall Risk None identified. Assessment: 12:59 Pain: Complains of pain in face. Neuro: No deficits noted. [facility] Vital Signs: 12:50 BP 133 / 84; Pulse 84; Resp 16; Temp 97.6(TE); Pulse Ox 100% on R/A; Weight 127.01 kg; ss Height 6 ft. 5 in. (195.58 cm); Pain 8/10; 12:59 BP 129 / 88; Pulse 78; Resp 18; Pulse Ox 96% on R/A; bh1 14:07 BP 163 / 99; Pulse 92; Resp 18; Pulse Ox 96% on R/A; bh1 14:40 BP 169 / 97 LA Supine (auto/lg); Pulse 75; bh1 14:45 BP 157 / 100 LA Sitting (auto/lg); Pulse 75; bh1 14:50 BP 176 / 95 LA Standing (auto/lg); Pulse 79; bh1 14:50 BP 146 / 91; Pulse 79; Resp 18; Pulse Ox 98% on R/A; bh1 15:37 BP 153 / 95; Pulse 88; Resp 18; Pulse Ox 96% on R/A; bh1 16:30 BP 158 / 92; Pulse 68; Resp 18; Temp 98.3(O); Pulse Ox 100% on R/A; bh1 12:50 Body Mass Index 33.20 (127.01 kg, 195.58 cm) ED Course: 12:38 Patient arrived in ED. mr 12:52 Triage completed. 12:52 Arm band placed on right wrist. 12:59 Gisela Garcia, RN is Primary Nurse. 1 12:59 No apparent distress. Awaiting ED provider evaluation. 1 12:59 Patient has correct armband on for positive identification. Bed in low position. Call 1 light in reach. Pulse ox on. NIBP on. 12:59 No provider procedures requiring assistance completed. Patient did not have IV access [facility] during this emergency room visit. 13:06 Owen Driscoll NP is PHCP. pm1 13:06 Davy Abebe MD is Attending Physician. pm1 13:[address] via wheelchair. bh1 13:53 CT Head Brain wo Cont In Process Unspecified. EDMS 14:07 Inserted saline lock: 20 gauge in right antecubital area, using aseptic technique. bh1 Blood collected. 15:38 No apparent distress. Awaiting lab results, Awaiting re-evaluation by ER provider. [facility] 16:30 IV discontinued, intact, bleeding controlled, No redness/swelling at site. [facility] Administered Medications: 14:00 Drug: NS 0.9% 1000 ml Route: IV; Rate: 1000 ml; Site: right antecubital; [facility] 15:05 Follow up: IV Status: Completed infusion; IV Intake: 1000ml [facility] 14:06 Drug: Tylenol 1000 mg Route: PO; [facility] 14:06 Follow up: Response: No adverse reaction [facility] 15:03 Drug: NS 0.9% 1000 ml Route: IV; Rate: 1000 ml; Site: right antecubital; [facility] 16:19 Follow up: IV Status: Completed infusion; IV Intake: 1000ml [facility] Medication: 12:59 VIS not applicable for this client. [facility] Intake: 15:05 IV: 1000ml; Total: 1000ml. [facility] 16:19 IV: 1000ml; Total: 2000ml. [facility] Outcome: 16:21 Discharge ordered by MD. 1 16:30 Discharged to home ambulatory. [facility] 16:30 Condition: good 16:30 Discharge instructions given to patient, Instructed on discharge instructions, follow up and referral plans. Demonstrated understanding of instructions, follow-up care. 16:32 Patient left the ED. [facility] Signatures: Dispatcher [employer] EDE BirdLona Shelby, RN RN ss Owen Driscoll, LINK TRAINER MAINTENANCE MAN LINK TRAINER MAINTENANCE MAN pm1 Gisela Garcia RN RN [facility] Corrections: (The following items were deleted from the chart) 12:53 12:50 Acuity: BREEZY 4 ss ss
--- NOTE | 2022-03-05 16:22 | EDPHYS ---
Physician Documentation [facility] Name: Noah Putnam Age: 51 yrs Sex: Male : 1970 Arrival Date: 03/05/2022 Time: 12:38 Bed 26 Private MD: ED Physician Davy Abebe HPI: 03/05 13:29 This 51 yrs old Black Male presents to ER via Ambulatory with complaints of Headache. pm1 13:29 The patient complains of pain to the forehead. The patient describes the headache as pm1 aching. Onset: The symptoms/episode began/occurred 4 day(s) ago. Associated signs and symptoms: Pertinent positives: generalized weakness. Severity of symptoms: in the emergency department the pain is actually worse. Headache History: Other similar to prior headache many years ago when he was dehydrated. The symptoms are alleviated by nothing. the symptoms are aggravated by bright environment, in the sun, and heat while working. The patient has experienced a previous episode, many years ago, and the symptoms today are exactly the same, dehydration. The patient has not recently seen a physician. Historical: - Allergies: 12:52 Bee Venom; ss - Home Meds: 12:52 amlodipine 10 mg tab 1 tab once daily [Active]; lisinopril 10 mg Oral tab 1 tab once ss daily [Active]; - PMHx: 12:52 chronic kidney disease; Herniated disc; Hypertension; ss - PSHx: 12:52 left arm surgery; ss - Immunization history:: Adult Immunizations up to date. - Social history:: Smoking status: Patient denies any tobacco usage or history of. ROS: 13:29 Constitutional: Negative for fever, chills, and weight loss, Cardiovascular: Negative pm1 for chest pain, palpitations, and edema, Respiratory: Negative for shortness of breath, cough, wheezing, and pleuritic chest pain. 13:29 ENT: Negative for injury, pain, and discharge, Abdomen/GI: Negative for abdominal pain, nausea, vomiting, diarrhea, and constipation. 13:29 Skin: Negative for injury, rash, and discoloration. 13:29 Eyes: Positive for photophobia, Negative for blurry vision, pain. 13:29 Neuro: Positive for headache, weakness, Negative for numbness, tingling. 13:29 All other systems are negative. Exam: 13:29 Constitutional: This is a well developed, well nourished patient who is awake, alert, pm1 and in no acute distress. Head/Face: Normocephalic, atraumatic. 13:29 Back: No spinal tenderness. No costovertebral tenderness. Full range of motion. Skin: Warm, dry with normal turgor. Normal color with no rashes, no lesions, and no evidence of cellulitis. MS/ Extremity: Pulses equal, no cyanosis. Neurovascular intact. Full, normal range of motion. 13:29 Eyes: Exam is negative for acute changes, Periorbital structures: no acute changes, Extraocular movements: no acute changes, Conjunctiva: no acute changes, no injection. 13:29 ENT: Exam is negative for acute changes, Mouth: is normal, Lips: normal, moist, Oral mucosa: normal, pink and intact, moist. 13:29 Cardiovascular: Exam negative for acute changes, Rate: normal, Rhythm: regular, Pulses: no pulse deficits are appreciated, Heart sounds: normal. 13:29 Respiratory: Exam negative for acute changes, respiratory distress, shortness of breath, Breath sounds: are clear throughout. 13:29 Abdomen/GI: Inspection: abdomen appears normal, Palpation: abdomen is soft and non-tender, in all quadrants. 13:29 Neuro: Exam negative for acute changes, Orientation: is normal, Mentation: is normal, Motor: is normal, moves all fours. Vital Signs: 12:50 BP 133 / 84; Pulse 84; Resp 16; Temp 97.6(TE); Pulse Ox 100% on R/A; Weight 127.01 kg; ss Height 6 ft. 5 in. (195.58 cm); Pain 8/10; 12:59 BP 129 / 88; Pulse 78; Resp 18; Pulse Ox 96% on R/A; bh1 14:07 BP 163 / 99; Pulse 92; Resp 18; Pulse Ox 96% on R/A; bh1 14:40 BP 169 / 97 LA Supine (auto/lg); Pulse 75; bh1 14:45 BP 157 / 100 LA Sitting (auto/lg); Pulse 75; bh1 14:50 BP 176 / 95 LA Standing (auto/lg); Pulse 79; bh1 14:50 BP 146 / 91; Pulse 79; Resp 18; Pulse Ox 98% on R/A; 1 15:37 BP 153 / 95; Pulse 88; Resp 18; Pulse Ox 96% on R/A; bh1 16:30 BP 158 / 92; Pulse 68; Resp 18; Temp 98.3(O); Pulse Ox 100% on R/A; bh1 12:50 Body Mass Index 33.20 (127.01 kg, 195.58 cm) ss MDM: 13:06 Patient medically screened. pm1 15:00 Data reviewed: vital signs. Data interpreted: Pulse oximetry: on room air is 96 %. pm1 Interpretation: normal. 15:52 Counseling: I had a detailed discussion with the patient and/or guardian regarding: the pm1 historical points, exam findings, and any diagnostic results supporting the discharge/admit diagnosis, lab results, radiology results. 16:25 ED course: Discussed diagnosis with patient. Dehydration with mild case of pm1 rhabdomyolysis. Patient reports feeling better after fluids administered and refused a third bag of fluid because he is feeling better and wants to go home. Educated on rehydration and instructed to stay out of the heat. 03/05 13:28 Order name: CBC with Diff; Complete Time: 14:25 pm1 03/05 13:28 Order name: CMP; Complete Time: 14:26 pm1 03/05 13:28 Order name: CT Head Brain wo Cont; Complete Time: 14:08 pm1 03/05 13:28 Order name: CPK; Complete Time: 14:26 pm1 03/05 13:50 Order name: Urine Dipstick-Ancillary; Complete Time: 14:02 EDWA 03/05 13:28 Order name: Orthostatic Blood Pressure; Complete Time: 14:51 pm1 03/05 13:28 Order name: Urine Dipstick-Ancillary (obtain specimen); Complete Time: 13:48 pm1 Administered Medications: 14:00 Drug: NS 0.9% 1000 ml Route: IV; Rate: 1000 ml; Site: right antecubital; [facility] 15:05 Follow up: IV Status: Completed infusion; IV Intake: 1000ml [facility] 14:06 Drug: Tylenol 1000 mg Route: PO; [facility] 14:06 Follow up: Response: No adverse reaction [facility] 15:03 Drug: NS 0.9% 1000 ml Route: IV; Rate: 1000 ml; Site: right antecubital; [facility] 16:19 Follow up: IV Status: Completed infusion; IV Intake: 1000ml bh1 Disposition: 18:28 Co-signature as Attending Physician, Davy Abebe MD. rn Disposition Summary: 03/05/22 16:21 Discharge Ordered Location: Home pm1 Problem: new pm1 Symptoms: have improved pm1 Condition: Stable pm1 Diagnosis - Dehydration pm1 - Rhabdomyolysis pm1 Followup: pm1 - With: Emergency Department - When: As needed - Reason: Worsening of condition Followup: pm1 - With: Private Physician - When: 2 - 3 days - Reason: Recheck today's complaints, Continuance of care, Re-evaluation by your physician Discharge Instructions: - Discharge Summary Sheet pm1 - Dehydration, Adult pm1 - Rhabdomyolysis pm1 - Rehydration, Adult pm1 Forms: - Medication Reconciliation Form pm1 - Work release form pm1 - Thank You Letter pm1 - Antibiotic Education pm1 - Prescription Opioid Use pm1 Signatures: Dispatcher [employer] EDDavy Genao MD MD rn Smirch, Shelby, RN RN Owen Driscoll NP DISTRIBUTOR SALES CONSULTANT pm1 Gisela Garcia, LINUS RN [facility]
[2022-03-05 16:54] VITALS: BP 158/92; TEMP 98.3; O2SAT 100
== END 2022-03-05 16:32 | disposition home or self-care (01) ==
LOC: ER 12:36
DX: E86.0 Dehydration (principal); M62.82 Rhabdomyolysis; I12.9 Hypertensive chronic kidney disease with stage 1 through stage 4 chronic kidney disease, or unspecified chronic kidney disease; N18.9 Chronic kidney disease, unspecified; Z91.030 Bee allergy status
CPT/HCPCS: 96361; 85025; 36415; 82550; 81003; 80053; 70450; 96360; 99284; J7030 ×2

== ENCOUNTER 2022-03-24 12:38 | Emergency (ER) | payer BC ==
--- NOTE | 2022-03-24 13:54 | RAD REPORT ---
EXAM DESCRIPTION: RAD - Chest Single View - 03/24/2022 1:25 pm CLINICAL HISTORY: fever, cough COMPARISON: Chief TECHNIQUE: AP portable chest image was obtained 03/24/2022 1:25 pm . FINDINGS: No focal mass or consolidation. Interstitial pattern is mildly prominent, similar or less pronounced than on prior imaging. Heart and vasculature are normal. No measurable pleural effusion an d no pneumothorax. No acute bony abnormality seen. No acute aortic findings suspected. IMPRESSION: No acute cardiopulmonary process.
--- NOTE | 2022-03-24 16:33 | EDPHYS ---
Physician Documentation [facility] Name: Noah Putnam Age: 51 yrs Sex: Male : 1970 Arrival Date: 03/24/2022 Time: 12:40 Bed 9 Private MD: ED Physician Davy Abebe HPI: 03/24 13:04 This 51 yrs old Black Male presents to ER via Ambulatory with complaints of Headache, jmm neck pain, Breathing Difficulty. 13:04 The patient complains of pain to the right ear. Onset: The symptoms/episode jmm began/occurred gradually, last night. Associated signs and symptoms: Pertinent positives: fever. This is a 51 year old male with a history of ckd, htn that presents to the ED with complaints of sore throat, cough, fever, body aches beginning last night. Also complains of productive cough. . 13:04 Headache History: The patient has had previous headaches and this one is similar to jmm previous episodes. 13:04 The symptoms are alleviated by nothing. It is unknown whether or not the patient has jmm had similar symptoms in the past. Historical: - Allergies: 13:04 Bee Venom; ap3 - Home Meds: 13:04 amlodipine 10 mg tab 1 tab once daily [Active]; lisinopril 10 mg Oral tab 1 tab once ap3 daily [Active]; - PMHx: 13:04 chronic kidney disease; Herniated disc; Hypertension; ap3 - PSHx: 13:04 left arm surgery; ap3 - Immunization history:: Client reports receiving the 1st dose of the Covid vaccine. - Social history:: Smoking status: Patient denies any tobacco usage or history of. ROS: 13:04 Constitutional: Negative for fever, chills, and weight loss. jmm 13:04 Cardiovascular: Negative for chest pain, palpitations, and edema. 13:04 ENT: Positive for ear pain, sore throat. 13:04 Respiratory: Positive for cough, "sounds productive". 13:04 Neuro: Positive for headache. 13:04 All other systems are negative. Exam: 13:04 Head/Face: atraumatic. Eyes: EOMI, no conjunctival erythema appreciated jmm 13:04 Neck: Trachea midline, Supple Chest/axilla: Normal chest wall appearance and motion. Cardiovascular: Regular rate and rhythm. No edema appreciated Respiratory: Normal respirations, no respiratory distress appreciated Abdomen/GI: Non distended Back: Normal ROM 13:04 Skin: General appearance color normal MS/ Extremity: Moves all extremities, no obvious deformities appreciated, no edema noted to the lower extremities Neuro: Awake and alert Psych: Behavior is normal, Mood is normal, Patient is cooperative and pleasant 13:04 Constitutional: The patient appears in no acute distress, alert, awake. 13:04 ENT: TM's: erythema, that is moderate, on the right. 13:04 ENT: Posterior pharynx: erythema, that is mild. Vital Signs: 13:01 BP 137 / 85; Pulse 96; Resp 17; Temp 98.6; Pulse Ox 100% ; Weight 127.01 kg; Height 6 ap3 ft. 5 in. (195.58 cm); 13:01 Body Mass Index 33.20 (127.01 kg, 195.58 cm) ap3 MDM: 13:08 Patient medically screened. [facility] 16:30 Data reviewed: vital signs, nurses notes. Counseling: I had a detailed discussion with mohinder the patient and/or guardian regarding: the historical points, exam findings, and any diagnostic results supporting the discharge/admit diagnosis, lab results, the need for outpatient follow up, to return to the emergency department if symptoms worsen or persist or if there are any questions or concerns that arise at home. ED course: Patient is alert and non toxic in appearance in the ED. Neck is supple. Patient advised to follow up with pcp and otherwise given strict return precautions. Patient understood and agrees with the plan of care. . 03/24 13:03 Order name: SARS-COV-2 RT PCR (Document "Date of Onset" if Symptomatic); Complete Time: [facility] 14:43 03/24 13:03 Order name: Influenza Screen (a \\T\\ B); Complete Time: 14:26 [facility] 03/24 13:03 Order name: Strep; Complete Time: 14:13 [facility] 03/24 13:04 Order name: Chest Single View XRAY; Complete Time: 13:57 [facility] 03/24 14:14 Order name: Throat Culture EDMS Administered Medications: No medications were administered Disposition: 17:44 Co-signature as Attending Physician, Davy Abebe MD. rn Disposition Summary: 03/24/22 16:32 Discharge Ordered Location: Home [facility] Condition: Stable jmm Diagnosis - Headache jmm - Acute pharyngitis, unspecified jmm Followup: m - With: Private Physician - When: 2 - 3 days - Reason: Recheck today's complaints, Continuance of care, Re-evaluation by your physician Discharge Instructions: - Discharge Summary Sheet jmm - Pharyngitis jmm - Sore Throat jmm Forms: - Medication Reconciliation Form jm - Thank You Letter jm - Antibiotic Education jmm - Prescription Opioid Use [facility] Prescriptions: - Augmentin 875-125 mg Oral Tablet - take 1 tablet by ORAL route every 12 hours for 10 days; 20 tablet; Refills: 0, jm Product Selection Permitted Signatures: Dispatcher [employer] EDMS Aly Prasad PA PA m Davy Abebe MD MD rn Carol Barfield RN RN ap3 Corrections: (The following items were deleted from the chart) 16:29 13:04 This is a 51 year old male with a history of ckd, htn that presents to the ED jm with complaints of . jmm
--- NOTE | 2022-03-24 16:33 | ER ---
Nurse's Notes [facility] Name: Noah Putnam Age: 51 yrs Sex: Male : 1970 Arrival Date: 03/24/2022 Time: 12:40 Bed 9 Private MD: Diagnosis: Headache;Acute pharyngitis, unspecified Presentation: 03/24 13:01 Chief complaint: Patient states: he was seen a few weeks ago for headache and was told ap3 that if he felt that way again to come back. Patient states he currently has a headache with his right ear ache, his neck hurts, he has a cough, he feels like he is "breathing like darth saulo" and is having a hard time breathing. Patient states this has been going on for approx three days now. Coronavirus screen: Client presents with at least one sign or symptom that may indicate coronavirus-19. Ebola Screen: No symptoms or risks identified at this time. Initial Sepsis Screen: Does the patient meet any 2 criteria? No. Patient's initial sepsis screen is negative. Does the patient have a suspected source of infection? No. Patient's initial sepsis screen is negative. Risk Assessment: Do you want to hurt yourself or someone else? Patient reports no desire to harm self or others. Onset of symptoms was March 21, 2022. 13:01 Method Of Arrival: Ambulatory ap3 13:01 Acuity: BREEZY 3 ap3 Triage Assessment: 13:05 Headache History: The patient has had previous headaches and this one is similar to ap3 previous episodes. General: Appears uncomfortable, Behavior is calm, cooperative, appropriate for age. Pain: Complains of pain in head, right ear, neck Pain currently is 4 out of 10 on a pain scale. Pain began gradually, 2-3 days ago. Also complains of shortness of breath. Neuro: Level of Consciousness is awake, alert, obeys commands, Oriented to person, place, time, situation. Cardiovascular: Patient's skin is warm and dry. Respiratory: Airway is patent Respiratory effort is even, unlabored, Respiratory pattern is regular, symmetrical. Historical: - Allergies: 13:04 Bee Venom; ap3 - Home Meds: 13:04 amlodipine 10 mg tab 1 tab once daily [Active]; lisinopril 10 mg Oral tab 1 tab once ap3 daily [Active]; - PMHx: 13:04 chronic kidney disease; Herniated disc; Hypertension; ap3 - PSHx: 13:04 left arm surgery; ap3 - Immunization history:: Client reports receiving the 1st dose of the Covid vaccine. - Social history:: Smoking status: Patient denies any tobacco usage or history of. Screenin:06 Abuse screen: Denies threats or abuse. Nutritional screening: No deficits noted. ap3 Tuberculosis screening: No symptoms or risk factors identified. 16:49 Fall Risk None identified. ss Assessment: 16:49 General: Appears in no apparent distress. comfortable, Behavior is calm, cooperative. ss Pain:. Neuro: Level of Consciousness is awake, alert, obeys commands, Oriented to person, place, time, situation. Cardiovascular: Capillary refill < 3 seconds is brisk in bilateral fingers. Respiratory: Airway is patent Respiratory effort is even, unlabored, Respiratory pattern is regular, symmetrical, Denies cough, shortness of breath. Derm: Skin is intact, is healthy with good turgor, Skin is dry, Skin is pink, warm \\T\\ dry. normal. Musculoskeletal: Circulation, motion, and sensation intact. Range of motion: intact in all extremities, Swelling absent. Vital Signs: 13:01 BP 137 / 85; Pulse 96; Resp 17; Temp 98.6; Pulse Ox 100% ; Weight 127.01 kg; Height 6 ap3 ft. 5 in. (195.58 cm); 13:01 Body Mass Index 33.20 (127.01 kg, 195.58 cm) ap3 ED Course: 12:40 Patient arrived in ED. mr 13:02 Aly Prasad PA is PHCP. jmm 13:02 aDvy Abebe MD is Attending Physician. jmm 13:04 Triage completed. ap3 13:06 Arm band placed on right wrist. ap3 13:26 Chest Single View XRAY In Process Unspecified. EDMS 15:56 Lawanda Sampson, LINUS is Primary Nurse. ss 16:49 Patient has correct armband on for positive identification. Bed in low position. ss 16:49 No provider procedures requiring assistance completed. Patient did not have IV access ss during this emergency room visit. Administered Medications: No medications were administered Medication: 16:49 VIS not applicable for this client. ss Outcome: 16:32 Discharge ordered by . jmm 16:49 Discharged to home ambulatory. 16:49 Condition: good 16:49 Discharge instructions given to patient, Instructed on discharge instructions, follow up and referral plans. medication usage, Demonstrated understanding of instructions, follow-up care, medications, Prescriptions given X 1. 16:51 Patient left the ED. Signatures: Dispatcher [employer] EDMS Aly Prasad PA PA jmm Rivera, Mary mr Lawanda Sampson RN RN Carol Barfield RN RN ap3
[2022-03-24 17:01] VITALS: BP 137/85; TEMP 98.6; O2SAT 100
== END 2022-03-24 16:51 | disposition home or self-care (01) ==
LOC: ER 12:38
DX: R51.9 Headache, unspecified (principal); J02.9 Acute pharyngitis, unspecified; I12.9 Hypertensive chronic kidney disease with stage 1 through stage 4 chronic kidney disease, or unspecified chronic kidney disease; N18.9 Chronic kidney disease, unspecified; Z20.822 Contact with and (suspected) exposure to COVID-19; Z91.030 Bee allergy status
CPT/HCPCS: 87070; 87081; 87804 ×2; 71045; 99283; U0003

== ENCOUNTER 2022-10-20 13:32 | Emergency (ER) | payer OTHER ==
--- OUTSIDE RECORDS SUMMARY | 2022-10-20 13:43 | XMS REPORT | Continuity of Care Document ---
:1970 Author Organization [facility] t Address [address] [place] [address] Care Team Providers Name Role Phone Emily Gaines Primary Care Physician [phone] Mayuri James Attending Clinician Unavailable MARK HERNANDEZ Attending Clinician Unavailable Julian Matos MD Attending Clinician Mark Hernandez MD Attending Clinician ABRAHAM ORANTES Attending Clinician Unavailable Abraham Orantes MD Attending Clinician Doctor Unassigned, [place] Attending Clinician Unavailable Trevor PERKINS Attending Clinician Unavailable Trevor Worley Attending Clinician SOHAM PATTERSON Attending Clinician Unavailable Soham Patterson MD Attending Clinician Carly BARRIGA, Ellen Kilpatrick Attending Clinician EMELIA GALLEGO Attending Clinician Unavailable Madison Akers Attending Clinician Emelia Gallego DO Attending Clinician Felipe Valdivia Attending Clinician FELIPE ORTEGA Attending Clinician Unavailable Elliot HICKS, Gabriella Richard Attending Clinician Nurse, Adc Pob Immunization Attending Clinician Unavailable David Clarke DO Attending Clinician Harvinder WALDROP, Nikhil Attending Clinician NIKHIL BLANTON Attending Clinician Unavailable Pcp, Patient Does Not Have A Attending Clinician [phone] Isabela BARRIGA, Mirna Topete Attending Clinician Unavailable Darnell Bustillo Attending Clinician DARNELL HSU Attending Clinician Unavailable Jessy Siddiqui DO Attending Clinician MARK HERNANDEZ Admitting Clinician Unavailable Mark Hernandez MD Admitting Clinician ABRAHAM ORANTES Admitting Clinician Unavailable Trevor PERKINS Admitting Clinician Unavailable SOHAM PATTERSON Admitting Clinician Unavailable EMELIA GALLEGO Admitting Clinician Unavailable Emelia Gallego DO Admitting Clinician DARNELL HSU Admitting Clinician Unavailable Payers Payer Name Policy Type Policy Number Effective Date Expiration Date Birgit sr [employer] COMM[employer]CIAL [id number] 2022 OUT OF NETWORK 00:00:00 CIGNA GENERIC [id number] 2021 00:00:00 [employer] Blue 6 [id number] [facility] Problems Condition Condition Condition Status Onset Resolution Last Treating Co mments Source Name Details Category Date Date Treatment Clinician Date Epigastric Epigastric Disease Active 2022- U nivers pain pain 1-28 ity of 00:00: [address] SBO (small SBO (small Disease Active U nivers bowel bowel 2-16 [place] obstruct[place] [address] [place] [id number] Branch Obesity Obesity Disease Active Univers (BMI (BMI 2-16 ity of 30-39.9) 30-39.9) 00:00: [address] Branch [id number] Bladder Problem Commo n mass Spirit - [facility] [id number] Microscopi Problem Co mmon c Spirit hematuria - [facility] [id number] Suprapubic Problem Co mmon pain [facility] [id number] Lower Problem Common urinary Spirit tract - [facility] symptoms [facility] No known No known Disease Unive rs active active ity of problems problems [facility] Allergies, Adverse Reactions, Alerts Allergy Allergy Status Severity Reaction(s) Onset Inactive Treating Comm ents Source Name Type Date Date Clinician BEE DRUG Active Swelling Univers VENOM INGREDI 2-16 ity of PROTEIN 00:00: [place] (HONEY 00 Medical BEE) Branch Bee Propensi Active Swelling Univer s Venom ty to 2-16 ity of Protein adverse 00:00: [place] (Honey reaction 00 Medical Bee) s Branch NO KNOWN Drug Active Univers ALLERGIE Class ity of S [facility] Social History Social Habit Start Date Stop Date Quantity Comments Source History of Common Spirit - Tobacco Use [facility] Sex Assigned At Common Sp avinash - [facility] Exposure to 2022-10-01 2022-10-11 Not sure [facility] SARS-CoV-2 00:00:00 11:49:00 [facility] [place] (event) Jet Tobacco use and 2022-10-11 2022-10-11 Smokeless tobacco Un iversity of exposure 00:00:00 00:00:00 non-user [facility] Alcohol intake 2022-10-11 2022-10-11 Ex-drinker [facility] 00:00:00 00:00:00 (finding) [facility] Smoking Status Start Date Stop Date Source Never smoked tobacco [facility] Former Smoker 2022-07-11 00:00:00 2022-07-11 00:00:00 Common S pirit - [facility] Ce nter Unknown if ever smoked [facility] Medications Ordered Filled Start Stop Current Ordering Indication Dosage Frequency Signature Comments Components Source Medication Medication Date Date Medication? Clinician (SIG) Name Name lipase-prot Yes 2{capsu 2 capsule, Univers ease-amylas 1-29 le} Oral, TID ity of e (CREON) 23:00: MEALS, [place] 12,000-38,0 00 First dose Me dical 00 -60,000 on [place] Branch unit 10/12/22 at capsule 2 1700, capsule Until Discontinu ed, Routine lisinopriL Yes 10mg Take 10 mg U nivers 10 mg 10-12 by mouth ity of tablet 17:56: in the [place] 15 morning. Medical Branch meloxicam Yes 7.5mg 7.5 mg, Univ ers (MOBIC) 10-12 Oral, ity of tablet 7.5 17:15: DAILY, [place] mg 00 First dose Medical on [place] Branch 10/12/22 at 1115, Until Discontinu ed, Routine omeprazole Yes 20mg 20 mg, Unive rs (PRILOSEC) 10-12 Oral, ity of capsule 20 15:00: DAILY, [place] mg 00 First dose Medical on [place] Branch 10/12/22 at 0900, Until Discontinu ed, Routine pantoprazol 2022- Yes [id number] 40mg Take 1 Univers e 40 mg EC 10-12 tablet by ity of tablet 00:00: 04:59 mouth in [place] 00 :00 the Medical morning Branch for 90 days. lipase-prot 2022- Yes [id number] 2{capsu Take 2 Univers ease-amylas 10-12 le} capsules ity of e 00:00: 04:59 by mouth [place] 12,000-38,0 00 :[facility] Branch unit and 2 capsule capsules at noon and 2 capsules in the evening. Take with meals. Do all this for 90 days. Do not crush or chew. meloxicam 2022- Yes [id number] 7.5mg Take 1 Univers 7.5 mg 10-12 02-13 tablet by ity of tablet 00:00: 05:59 mouth [place] 00 :00 daily as Medical needed for Branch Pain (scale 7-10) for up to 14 days. HYDROcodone 2022- Yes [id number] 1{tbl} Take 1 U nivers -acetaminop 10-12 02-06 tablet by it y of hen 5-325 00:00: 05:59 mouth [place] mg tablet 00 :00 every 6 Medical (six) Branch hours as needed for Pain (scale 4-6) for up to 7 days. Indication s: acute pain amLODIPine Yes 10mg 10 mg, Unive rs (NORVASC) 10-11 Oral, ity of tablet 10 20:00: DAILY, [place] mg 00 First dose Medical on Sat Branch 10/11/22 at 1400, Until Discontinu ed, Routine lactated 2022- No 1000mL at 125 Univ ers ringers IV 10-11 mL/hr, ity of infusion 20:00: 14:03 1,000 mL, [place] 1,000 mL 00 :28 IV Medical Infusion, Branch CONTINUOUS , Starting on 10/11/22 at 1400, Until 10/12/22 at 0803, Routine HYDROcodone 2022- Yes 1{tbl} 1 tablet, Univers -acetaminop 10-11 Oral, ity of hen (NORCO 19:35: 19:34 Q6HPRN, [place] 5) 5-325 mg 19 :19 Starting Medi amy tablet 1 on Sat Branch tablet 10/11/22 at 1335, Until 10/13/22 at 1334, Routine, Pain (scale 4-6) acetaminoph Yes 650mg 650 mg, Un veronica en 10-11 Oral, ity of (TYLENOL) 19:35: Q6HPRN, [place] tablet 650 16 Starting Medic al mg on Sat Branch 10/11/22 at 1335, Until Discontinu ed, Routine, Pain (scale 1-3) NaCl 0.9% 2022- No 1000mL at 999 Uni vers (NS) bolus 10-11 mL/hr, ity of infusion 16:45: 16:02 1,000 mL, [place] 1,000 mL 00 :00 Intravenou Medic al s, ONCE, 1 Branch dose, On 10/11/22 at 1045, STAT ondansetron 2022- No 4mg 4 mg, Slow Univers (ZOFRAN 10-11 IV Push, ity of (PF)) 16:15: 16:15 ONCE, 1 [place] injection 4 00 :00 dose, On Medi amy mg Sat Branch 10/11/22 at 1015, VASILIY morpHINE (4 2023-0 2023- No 4mg 4 mg, Slow Univers mg/mL) 10-11 IV Push, ity of injection 4 16:15: 16:14 ONCE, 1 [place] mg 00 :00 dose, On Medical Sat Branch 10/11/22 at 1015, STAT iopamidol 2022- No [id number] 120mL 120 mL, Univers (ISOVUE 10-11 Intravenou ity o f 370-500 mL) 15:45: 14:43 s, ONCE, 1 [place] injection 00 :00 dose, On Medica l 120 mL Sat Branch 10/11/22 at 0945, Routine FENTanyl PF 2022- No 50ug 50 mcg, Un veronica (SUBLIMAZE 10-09 Slow IV ity o f (PF)) 08:30: 07:23 Push, [place] injection 00 :00 ONCE, 1 Medical 50 mcg dose, On Branch [place] 10/09/22 at 0230, Routine iopamidol 2022- No [id number] 100mL 100 mL, Univers (ISOVUE 10-09 Intravenou ity o f 370-500 mL) 07:15: 07:15 s, ONCE, 1 [place] injection 00 :00 dose, On Medica l 100 mL [place] Branch 10/09/22 at 0115, Routine ketorolac 2022- No 30mg 30 mg, Unive rs (TORADOL) 10-09 Slow IV ity of injection 06:15: 05:25 Push, [place] 30 mg 00 :00 ONCE, 1 Medical dose, On Branch [place] 10/09/22 at 0015, Routine ondansetron Yes [id number] 4mg Take 1 Univers (ZOFRAN) 4 1-26 tablet by ity of mg tablet 00:00: mouth [place] 00 every 8 Medical (eight) Branch hours as needed for Nausea and Vomiting (N/V). traMADoL Yes [id number] 50mg Take 1 Univers (ULTRAM) 50 1-26 tablet by ity of mg tablet 00:00: mouth [place] 00 every 6 Medical (six) Branch hours as needed for Pain (scale 7-10). Indication s: acute pain ondansetron 2022- No [id number] 4mg Take 1 Univers (ZOFRAN) 4 10-09 tablet by ity of mg tablet 00:00: 00:00 mouth [place] 00 :00 every 8 Medical (eight) Branch hours as needed for Nausea and Vomiting (N/V). traMADoL 2022- No [id number] 50mg Take 1 Univer s (ULTRAM) 50 10-09 tablet by it y of mg tablet 00:00: 00:00 mouth [place] 00 :00 every 6 Medical (six) Branch hours as needed for Pain (scale 7-10). Indication s: acute pain ketorolac 2021-09- No 30mg 30 mg, Unive rs (TORADOL) 10-21 12 Intramuscu ity of injection 17:15: 16:35 lar, ONCE, [place] 30 mg 00 :00 1 dose, On [facility] Branch 08/20/22 at 1115, VASILIY TAKE 1 2021-09 No TABLET 0-26 DAILY. 00:00: 00 morpHINE (4 No 4mg 4 mg, Slow Univers mg/mL) 06-09 IV Push, ity of injection 4 13:15: 12:54 ONCE, 1 [place] mg 00 :00 dose, On [facility] Branch 06/09/22 at 0815, VASILIY ketorolac 2021- No 30mg 30 mg, Unive rs (TORADOL) 06-09 Slow IV ity of injection 13:15: 12:55 Push, [place] 30 mg 00 :00 ONCE, 1 Medical dose, On Branch [facility] 06/09/22 at 0815, VASILIY iopamidol 2021- No [id number] 60mL 60 mL, Univers (ISOVUE 06-09 Intravenou ity o f 370-500 mL) 13:07: 13:08 s, ONCE, 1 [place] injection 00 :00 dose, On Medica l 60 mL [facility] Branch 06/09/22 at 0815, Routine ondansetron 2021- No 4mg 4 mg, Slow Univers (ZOFRAN 06-09 IV Push, ity of (PF)) 12:30: 12:54 ONCE, 1 [place] injection 4 00 :00 dose, On Medi amy mg Mon Branch 06/09/22 at 0730, VASILIY dexamethaso 2021-2021- No 10mg 10 mg, Uni vers ne sod phos 06-09 Slow IV ity of PF 12:30: 12:55 Push, [place] injection 00 :00 ONCE, 1 Medical 10 mg dose, On Branch 06/09/22 at 0730, 1 mL traMADoL 50 2021-0 Yes [id number] 50mg Take 1 Univ ers mg tablet 9-26 tablet by ity o f 00:00: mouth [place] 00 every 6 Medical (six) Branch hours as needed (pain). Indication s: acute pain lidocaine 5 2021-0 Yes [id number] Apply one Univers % (700 9-26 patch to ity of mg/patch) 00:00: most [place] patch 00 painful Medical area up to Branch 12 hours a day as needed for pain. PHARMACIST : dispense one box traMADoL 50 2021-0 Yes [id number] 50mg Take 1 Univ ers mg tablet 9-26 tablet by ity o f 00:00: mouth [place] 00 every 6 Medical (six) Branch hours as needed (pain). Indication s: acute pain lidocaine 5 2021-0 Yes [id number] Apply one Univers % (700 9-26 patch to ity of mg/patch) 00:00: most [place] patch 00 painful Medical area up to Branch 12 hours a day as needed for pain. PHARMACIST : dispense one box traMADoL 50 2021-0 Yes [id number] 50mg Take 1 Univ ers mg tablet 9-26 tablet by ity o f 00:00: mouth [place] 00 every 6 Medical (six) Branch hours as needed (pain). Indication s: acute pain lidocaine 5 2021-0 Yes [id number] Apply one Univers % (700 9-26 patch to ity of mg/patch) 00:00: most [place] patch 00 painful Medical area up to Branch 12 hours a day as needed for pain. PHARMACIST : dispense one box traMADoL 50 2021-0 Yes [id number] 50mg Take 1 Univ ers mg tablet 9-26 tablet by ity o f 00:00: mouth [place] 00 every 6 Medical (six) Branch hours as needed (pain). Indication s: acute pain lidocaine 5 2021-0 Yes [id number] Apply one Univers % (700 9-26 patch to ity of mg/patch) 00:00: most [place] patch 00 painful Medical area up to Branch 12 hours a day as needed for pain. PHARMACIST : dispense one box traMADoL 50 2022- No [id number] 50mg Take 1 Uni vers mg tablet 06-09 tablet by ity of 00:00: 00:00 mouth [place] 00 :00 every 6 Medical (six) Branch hours as needed (pain). Indication s: acute pain lidocaine 5 2022- No [id number] Apply one Univers % (700 06-09 patch to ity of mg/patch) 00:00: 00:00 most [place] patch 00 :00 painful Medical area up to Branch 12 hours a day as needed for pain. PHARMACIST : dispense one box predniSONE 2021- No [id number] 40mg Take 2 Univers 20 mg 06-09 tablets by ity of tablet 00:00: 04:59 mouth in [place] 00 :00 the Medical morning Branch for 7 days. Dose 0 No Unknown - 00:00: 00 Dose 2021-0 No Unknown -23 00:00: 00 lisinopriL 0 Yes 20mg 20 mg, Unive rs (PRINIVIL,Z 2-18 Oral, QHS, it y of ESTRIL) 03:00: First dose [place] tablet 20 00 (after Medical mg last Branch modificati on) on [place] 10/31/21 at 2100, Until Discontinu ed, Routine lisinopriL 2021-0 2021- No [id number] 20mg Take 1 Univers 20 mg 2-18 -21 tablet by ity of tablet 00:00: 04:59 mouth at [place] 00 :00 bedtime Medical for 30 Branch days. lisinopriL 2021-0 2- No [id number] 20mg Take 1 Univers 20 mg 2-18 03-21 tablet by ity of tablet 00:00: 04:59 mouth at [place] 00 :00 bedtime Medical for 30 Branch days. lactated 2021-0 Yes 1000mL at 75 Univer s ringers IV 2-17 mL/hr, ity of infusion 19:00: 1,000 mL, [place] 1,000 mL 00 IV Medical Infusion, Branch CONTINUOUS , Starting on [place] 10/31/21 at 1300, Until Discontinu ed, Routine amLODIPine Yes 10mg 10 mg, Unive rs (NORVASC) 2-17 Oral, ity of tablet 10 15:00: DAILY, [place] mg 00 First dose Medical on [place] Branch 10/31/21 at 0900, Until Discontinu ed, Routine enoxaparin Yes 40mg 40 mg, Unive rs (LOVENOX) 217 Subcutaneo ity of injection 15:00: us, DAILY, [place] 40 mg 00 First dose Medical on [place] Branch 10/31/21 at 0900, Until Discontinu ed, Routine lactated 2021- No 1000mL at 150 Univ ers ringers IV 10-31-17 mL/hr, ity of infusion 07:00: 18:45 1,000 mL, [place] 1,000 mL 00 :24 IV Medical Infusion, Branch CONTINUOUS , Starting on Thu10/31/21 at 0100, Until [place] 10/31/21 at 1245, Routine lactated No 1000mL at 75 Unive rs ringers IV 10-31 mL/hr, ity of infusion 01:00: 06:52 1,000 mL, [place] 1,000 mL 00 :16 IV Medical Infusion, Branch CONTINUOUS , Starting on Thu10/30/21 at 1900, Until Thu10/31/21 at 0052, Routine morpHINE No 4mg 4 mg, Slow Un veronica injection 4 10-3118 IV Push, ity of mg 00:43: 00:42 Q4HPRN, [place] 35 :35 Starting Medical on Thu Branch 10/30/21 at 1843, Until Thu10/31/21 at 1842, Routine, Pain (scale 7-10) HYDROcodone 2021- No 1{tbl} 1 tablet, Univers -acetaminop 10-31 Oral, ity of hen (NORCO 00:43: 00:42 Q6HPRN, [place] 5) 5-325 mg 32 :32 Starting Medi amy tablet 1 on Thu Branch tablet 10/30/21 at 1843, Until Thu11/01/21 at 1842, Routine, Pain (scale 4-6) acetaminoph 2022-0 Yes 650mg 650 mg, Un veronica en 2-17 Oral, ity of (TYLENOL) 00:43: Q6HPRN, [place] [...] Thu10/30/21 at 1515, VASILIY iopamidol 2021- No [id number] 100mL 100 mL, Univers (ISOVUE 10-30 Intravenou ity o f 370-500 mL) 20:37: 20:35 s, ONCE, 1 [place] injection 00 :00 dose, On Medica l 100 mL Thu Branch 10/30/21 at 1445, Routine lisinopril No 1mg 10 mg 2-03 tablet 00:00: 00 amlodipine 2021-0 No 1mg 10 mg 2-03 tablet 00:00: 00 lisinopril 2020-1 No 1mg 10 mg 0-13 tablet 00:00: 00 amlodipine 2020-1 No 1mg 10 mg 0-13 tablet 00:00: 00 NaCl 0.9% 0 2020- No 1000mL at 999 Uni vers [...] 05/22/21 at 2215, STAT NaCl 0.9% 2020-0 2020- No 500mL at 999 Univ ers (NS) bolus 9- 09-09 mL/hr, 500 it y of infusion 03:15: 15:14 mL, IV [place] 500 mL 00 :00 Piggyback, Medical ONCE, 1 Branch dose, 05/22/21 at 2215, STAT dexamethaso 2020-0 2020- No 10mg 10 mg, Uni vers ne 04-0220 Intramuscu ity of (DECADRON 03:30: 02:47 lar, ONCE, [place] PHOSPHATE) 00 :00 1 dose, Medica l injection Mon Branch 10 mg 7/19/21 at 2230, STAT ketorolac 2020- No 60mg 60 mg, Unive rs (TORADOL) 03-18 07-05 Intramuscu ity of injection 04:00: 02:56 lar, ONCE, [place] 60 mg 00 :00 1 dose, Medical 03/17/21 Branch at 2300, VASILIY
[facility] Restricted medication : EMERGENCY ROOM, ibuprofen 2020-0 Yes [id number] 800mg Take 1 Univers 800 mg 7-04 tablet by ity of tablet 00:00: mouth [place] 00 every 8 Medical (eight) Branch hours as needed for Pain (scale 4-6). ibuprofen 2020-0 Yes [id number] 800mg Take 1 Univers 800 mg 7-04 tablet by ity of tablet 00:00: mouth [place] 00 every 8 Medical (eight) Branch hours as needed for Pain (scale 4-6). ibuprofen 2020-0 Yes [id number] 800mg Take 1 Univers 800 mg 7-04 tablet by ity of tablet 00:00: mouth [place] 00 every 8 Medical (eight) Branch hours as needed for Pain (scale 4-6). ibuprofen 0 Yes [id number] 800mg Take 1 Univers 800 mg 7-04 tablet by ity of tablet 00:00: mouth [place] 00 every 8 Medical (eight) Branch hours as needed for Pain (scale 4-6). ibuprofen 2020-0 Yes [id number] 800mg Take 1 Univers 800 mg 7-04 tablet by ity of tablet 00:00: mouth [place] 00 every 8 Medical (eight) Branch hours as needed for Pain (scale 4-6). ibuprofen 2020-0 Yes [id number] 800mg Take 1 Univers 800 mg 7-04 tablet by ity of tablet 00:00: mouth [place] 00 every 8 Medical (eight) Branch hours as needed for Pain (scale 4-6). ibuprofen 2020-0 202- No [id number] 800mg Take 1 Univers 800 mg 7-04 09-09 tablet by ity of tablet 00:00: 00:00 mouth [place] 00 :00 every 8 Medical (eight) Branch hours as needed for Pain (scale 4-6). ibuprofen 2020-0 202- No [id number] 800mg Take 1 Univers 800 mg 7-04 [...] 11/14/20 at Branch 2300, Routine benzonatate Yes [id number] 100mg Take 1 Univers 100 mg 3-03 capsule by ity of capsule 00:00: mouth 3 (three) Medical times Branch daily as needed for Cough. benzonatate Yes [id number] 100mg Take 1 Univers 100 mg 3-03 capsule by ity of capsule 00:00: mouth (three) Medical times Branch daily as needed for Cough. benzonatate Yes [id number] 100mg Take 1 Univers 100 mg 3-03 capsule by ity of capsule 00:00: mouth 3 (three) Medical times Branch daily as needed for Cough. benzonatate 0 Yes [id number] 100mg Take 1 Univers 100 mg 3-03 capsule by ity of capsule 00:00: mouth 3 (three) Medical times Branch daily as needed for Cough. benzonatate 0 Yes [id number] 100mg Take 1 Univers 100 mg 3-03 capsule by ity of capsule 00:00: mouth 3 (three) Medical times Branch daily as needed for Cough. benzonatate 0 Yes [id number] 100mg Take 1 Univers 100 mg 3-03 capsule by ity of capsule 00:00: mouth 3 (three) Medical times Branch daily as needed for Cough. Dose 2020-0 No Unknown 3-03 00:00: 00 Dose 2020-0 No Unknown 3-03 00:00: 00 Dose 2020-0 No Unknown 3-03 00:00: 00 Dose 2020-0 No Unknown 11-14 00:00: 00 benzonatate 2020-0 2020- No [id number] 100mg Take 1 Univers 100 mg 11-14 capsule by ity of capsule 00:00: 00:00 mouth 3 [place] 00 :00 (three) Medical times Branch daily as needed for Cough. benzonatate 2020-0 2020- No [id number] 100mg Take 1 Univers 100 mg 11-14 capsule by ity of capsule 00:00: 00:00 mouth 3 [place] 00 :00 (three) Medical times Branch daily as needed for Cough. diphenhydrA 0 2020- No 25mg 25 mg, Uni vers MINE 09-30 Slow IV ity of (BENADRYL) 16:00: 15:17 Push, [place] injection 00 :00 ONCE, 1 Medical 25 mg dose, [place] Branch 09/30/20 at 1000, STAT metoclopram 2020- No 10mg 10 mg, Uni vers jerilyn HCl 09-30 Slow IV ity of (REGLAN) 16:00: 15:17 Push, [place] injection 00 :00 ONCE, 1 Medical 10 mg dose, [facility] 09/30/20 at 1000, VASILIY NaCl 0.9% 2020- No 1000mL at 999 Uni vers (NS) bolus 09-30 mL/hr, ity of infusion 15:00: 16:45 1,000 mL, [place] 1,000 mL 00 :00 IV Medical Infusion, Branch ONCE, 1 dose, [place] 09/30/20 at 0900, VASILIY lisinopriL Yes [id number] 10mg Take 1 Univers 10 mg 1-17 tablet by ity of tablet 00:00: mouth at [place] 00 bedtime. Medical Branch amLODIPine Yes [id number] 10mg Take 1 Univers (NORVASC) 1-17 tablet by ity o f 10 mg 00:00: mouth [place] tablet 00 daily. Medical Branch lisinopriL Yes [id number] 10mg Take 1 Univers 10 mg 1-17 tablet by ity of tablet 00:00: mouth at [place] 00 bedtime. Medical Branch amLODIPine Yes [id number] 10mg Take 1 Univers (NORVASC) 1-17 tablet by ity o f 10 mg 00:00: mouth [place] tablet 00 daily. Medical Branch lisinopriL 0 Yes [id number] 10mg Take 1 Univers 10 mg 1-17 tablet by ity of tablet 00:00: mouth at [place] 00 bedtime. Medical Branch amLODIPine Yes [id number] 10mg Take 1 Univers (NORVASC) 1-17 tablet by ity o f 10 mg 00:00: mouth [place] tablet 00 daily. Medical Branch lisinopriL Yes [id number] 10mg Take 1 Univers 10 mg 1-17 tablet by ity of tablet 00:00: mouth at [place] 00 bedtime. Medical Branch amLODIPine Yes [id number] 10mg Take 1 Univers (NORVASC) 1-17 tablet by ity o f 10 mg 00:00: mouth [place] tablet 00 daily. Medical Branch lisinopriL Yes [id number] 10mg Take 1 Univers 10 mg 1-17 tablet by ity of tablet 00:00: mouth at [place] 00 bedtime. Medical Branch amLODIPine Yes [id number] 10mg Take 1 Univers (NORVASC) 1-17 tablet by ity o f 10 mg 00:00: mouth [place] tablet 00 daily. Medical Branch lisinopriL Yes [id number] 10mg Take 1 Univers 10 mg 1-17 tablet by ity of tablet 00:00: mouth at [place] 00 bedtime. Medical Branch amLODIPine Yes [id number] 10mg Take 1 Univers (NORVASC) 1-17 tablet by ity o f 10 mg 00:00: mouth [place] tablet 00 daily. Medical Branch lisinopriL 0 Yes [id number] 10mg Take 1 Univers 10 mg 1-17 tablet by ity of tablet 00:00: mouth at [place] 00 bedtime. Medical Branch amLODIPine 0 Yes [id number] 10mg Take 1 Univers (NORVASC) 1-17 tablet by ity o f 10 mg 00:00: mouth [place] tablet 00 daily. Medical Branch lisinopriL Yes [id number] 10mg Take 1 Univers 10 mg 1-17 tablet by ity of tablet 00:00: mouth at [place] 00 bedtime. Medical Branch amLODIPine Yes [id number] 10mg Take 1 Univers (NORVASC) 1-17 tablet by ity o f 10 mg 00:00: mouth [place] tablet 00 daily. Medical Branch lisinopriL Yes [id number] 10mg Take 1 Univers 10 mg 1-17 tablet by ity of tablet 00:00: mouth at [place] 00 bedtime. Medical Branch amLODIPine Yes [id number] 10mg Take 1 Univers (NORVASC) 1-17 tablet by ity o f 10 mg 00:00: mouth [place] tablet 00 daily. Medical Branch lisinopriL Yes [id number] 10mg Take 1 Univers 10 mg 1-17 tablet by ity of tablet 00:00: mouth at [place] 00 bedtime. Medical Branch amLODIPine Yes [id number] 10mg Take 1 Univers (NORVASC) 1-17 tablet by ity o f 10 mg 00:00: mouth [place] tablet 00 daily. Medical Branch amLODIPine Yes [id number] 10mg Take 1 Univers (NORVASC) 1-17 tablet by ity o f 10 mg 00:00: mouth [place] tablet 00 daily. Medical Branch amLODIPine Yes [id number] 10mg Take 1 Univers (NORVASC) 1-17 tablet by ity o f 10 mg 00:00: mouth [place] tablet 00 daily. Medical Branch amLODIPine Yes [id number] 10mg Take 1 Univers (NORVASC) 1-17 tablet by ity o f 10 mg 00:00: mouth [place] tablet 00 daily. Medical Branch lisinopriL Yes [id number] 10mg Take 1 Univers 10 mg 1-17 tablet by ity of tablet 00:00: mouth at [place] 00 bedtime. Medical Branch amLODIPine Yes [id number] 10mg Take 1 Univers (NORVASC) 1-17 tablet by ity o f 10 mg 00:00: mouth [place] tablet 00 daily. Medical Branch amLODIPine Yes [id number] 10mg Take 1 Univers (NORVASC) 1-17 tablet by ity o f 10 mg 00:00: mouth [place] tablet 00 daily. Medical Branch amLODIPine Yes [id number] 10mg Take 1 Univers (NORVASC) 1-17 tablet by ity o f 10 mg 00:00: mouth [place] tablet 00 daily. Medical Branch amLODIPine Yes [id number] 10mg Take 1 Univers (NORVASC) 1-17 tablet by ity o f 10 mg 00:00: mouth [place] tablet 00 daily. Medical Branch amLODIPine Yes [id number] 10mg Take 1 Univers (NORVASC) 1-17 tablet by ity o f 10 mg 00:00: mouth [place] tablet 00 daily. Medical Branch amLODIPine Yes [id number] 10mg Take 1 Univers (NORVASC) 1-17 tablet by ity o f 10 mg 00:00: mouth [place] tablet 00 daily. Medical Branch lisinopriL Yes [id number] 10mg Take 1 Univers 10 mg 1-17 tablet by ity of tablet 00:00: mouth at [place] 00 bedtime. Medical Branch amLODIPine Yes [id number] 10mg Take 1 Univers (NORVASC) 1-17 tablet by ity o f 10 mg 00:00: mouth [place] tablet 00 daily. Medical Branch lisinopriL Yes [id number] 10mg Take 1 Univers 10 mg 1-17 tablet by ity of tablet 00:00: mouth at [place] 00 bedtime. Medical Branch amLODIPine Yes [id number] 10mg Take 1 Univers (NORVASC) 1-17 tablet by ity o f 10 mg 00:00: mouth [place] tablet 00 daily. Medical Branch lisinopriL 2021- No [id number] 10mg Take 1 Univers 10 mg 1-17 02-18 tablet by ity of tablet 00:00: 00:00 mouth at [place] 00 :00 bedtime. Medical Branch Dose 2019-09 No Unknown 0-30 00:00: 00 Dose 2019-1 No Unknown 0-30 00:00: 00 maalox:diph 2019- 2020- No 15mL 15 mL, Uni vers enhydrAMINE 0-19 07-02 Oral, ity of :lidocaine 03:30: 03:30 ONCE, 1 Jim as 2 % viscous 00 :00 dose, [facility] 1:1:1 07/01/20 Branch ([facility]OUT at 2230, [facility]) VASILIY oral suspension 15 mL sodium 2019-09 Yes 5mL 5 mL, Univers chloride 0-19 Intravenou ity o f (NS) 03:00: s, PRN, [place] injection 5 48 Starting [facility] 07/01/20 at 2200, Until Discontinu ed, Routine, IV line flushing sucralfate 2020-1 2020- No [id number] 1g Take 1 Univers 1 gram 0-18 11-02 tablet by ity of tablet 00:00: 05:59 mouth [place] 00 :00 before Medical meals and Branch at bedtime for 14 days. lisinopril 2020-0 No 1mg 10 mg 7-30 tablet 00:00: 00 amlodipine 2020-0 No 1mg 10 mg 7-30 tablet 00:00: 00 lisinopril 2020-0 No 1mg 10 mg 7-30 tablet 00:00: 00 amlodipine 2020-0 No 1mg 10 mg 7-30 tablet 00:00: 00 No known No Univers medications ity of [facility] Immunizations Ordered Filled Immunization Date Status Comments [facility] e Immunization Name Name SARS-COV-2 COVID-19 2021-05-07 Completed Unive rsity of PFIZER VACCINE 00:00:00 [facility] SARS-COV-2 COVID-19 2021-05-07 Completed Unive rsity of PFIZER VACCINE 00:00:00 [facility] SARS-COV-2 COVID-19 2021-05-07 Completed Unive rsity of PFIZER VACCINE 00:00:00 [facility] SARS-COV-2 COVID-19 2021-05-07 Completed Unive rsity of PFIZER VACCINE 00:00:00 [facility] SARS-COV-2 COVID-19 2021-05-07 Completed Unive rsity of PFIZER VACCINE 00:00:00 [facility] SARS-COV-2 COVID-19 2021-05-07 Completed Unive rsity of PFIZER VACCINE 00:00:00 [facility] SARS-COV-2 COVID-19 2021-05-07 Completed Unive rsity of PFIZER VACCINE 00:00:00 [facility] SARS-COV-2 COVID-19 2021-05-07 Completed Unive rsity of PFIZER VACCINE 00:00:00 [facility] SARS-COV-2 COVID-19 2021-05-07 Completed Unive rsity of PFIZER VACCINE 00:00:00 [facility] SARS-COV-2 COVID-19 2021-05-07 Completed Unive rsity of PFIZER VACCINE 00:00:00 [facility] SARS-COV-2 COVID-19 2021-05-07 Completed Unive rsity of PFIZER VACCINE 00:00:00 [facility] SARS-COV-2 COVID-19 2021-05-07 Completed Unive rsity of PFIZER VACCINE 00:00:00 [facility] SARS-COV-2 COVID-19 2021-05-07 Completed Unive rsity of PFIZER VACCINE 00:00:00 [facility] SARS-COV-2 COVID-19 2021-05-07 Completed Unive rsity of PFIZER VACCINE 00:00:00 [facility] Vital Signs Vital Name Observation Time Observation Value Comments Source Systolic blood 2022-10-12 21:48:00 152 mm[Hg] Univer sity of pressure [facility] Diastolic blood 2022-10-12 21:48:00 82 mm[Hg] Unive rsity of pressure [facility] Heart rate 2022-10-12 21:48:00 70 /min [facility] Body temperature 2022-10-12 21:48:00 36.89 Cindi [facility] ersity of [facility] Respiratory rate 2022-10-12 21:48:00 18 /min [facility] Oxygen saturation in 2022-10-12 21:48:00 94 /min [place] [facility] Arterial blood by [facility] Pulse oximetry Branch Body height 2022-10-11 17:50:00 193 cm [facility] Body weight 2022-10-11 17:50:00 113.399 kg [facility] BMI 2022-10-11 17:50:00 30.43 kg/m2 [facility] Systolic blood 2022-10-09 07:25:23 138 mm[Hg] Univer sity of pressure [facility] Diastolic blood 2022-10-09 07:25:23 86 mm[Hg] Unive rsity of pressure [facility] Heart rate 2022-10-09 07:25:23 73 /[facility] 2022-10-09 07:25:23 20 /min Univ ersity of [facility] Oxygen saturation in 2022-10-09 07:25:23 98 /min University of Arterial blood by [place] [facility] Pulse oximetry Jet Body temperature 2022-10-09 04:12:00 37.28 Cindi [facility] ersity of [facility] Body height 2022-10-09 04:12:00 193 cm Universi ty of [facility] Body weight 2022-10-09 04:12:00 113.399 kg Universi ty of [facility] BMI 2022-10-09 04:12:00 30.43 kg/m2 Universi ty of [facility] Systolic blood 2022-08-20 14:40:00 147 mm[Hg] Univer sity of pressure [facility] Diastolic blood 2022-08-20 14:40:00 95 mm[Hg] Unive rsity of [facility] Heart rate 2022-08-20 14:40:00 75 /min Universi ty of [facility] Body temperature 2022-08-20 14:40:00 36.89 Cindi [facility] ersity of [facility] Respiratory rate 2022-08-20 14:40:00 20 /min [facility] ersity of [facility] Body height 2022-08-20 14:40:00 190.5 cm Universi ty of [facility] Body weight 2022-08-20 14:40:00 115.667 kg Universi ty of [facility] BMI 2022-08-20 14:40:00 31.87 kg/m2 Universi ty of [facility] Oxygen saturation in 2022-08-20 14:40:00 98 /min University of Arterial blood by [facility] Pulse oximetry Branch height 2022-07-11 09:30:00 77 [in_i] Common [facility] weight 2022-07-11 09:30:00 253.6 [lb_av] Common [facility] temperature 2022-07-11 09:30:00 98.3 [degF] [facility] bmi 2022-07-11 09:30:00 30.07 kg/m2 [facility] oximetry 2022-07-11 09:30:00 99 % [facility] respiratory rate 2022-07-11 09:30:00 18 /min [facility] blood pressure 2022-07-11 09:30:00 135 mm[Hg] [facility] systolic [facility] blood pressure 2022-07-11 09:30:00 81 mm[Hg] [facility] diastolic [facility] Systolic blood 2022-06-09 15:00:00 141 mm[Hg] Univer sity of pressure [facility] Diastolic blood 2022-06-09 15:00:00 94 mm[Hg] Unive rsity of pressure [place] [facility] Heart rate 2022-06-09 15:00:00 59 /min Universi ty of [place] [facility] Respiratory rate 2022-06-09 15:00:00 16 /min Univ ersity of [place] [facility] Oxygen saturation in 2022-06-09 15:00:00 97 /min University of Arterial blood by [employer] [facility] Pulse oximetry Branch Body temperature 2022-06-09 11:56:00 36.17 Cindi Univ ersity of [place] [facility] Body height 2022-06-09 11:56:00 195.6 cm Universi ty of [place] [facility] Body weight 2022-06-09 11:56:00 127.007 kg Universi ty of [place] [facility] BMI 2022-06-09 11:56:00 33.20 kg/m2 Universi ty of [place] [facility] Systolic blood 2021-11-01 17:12:00 152 mm[Hg] Univer sity of pressure [place] [facility] Diastolic blood 2021-11-01 17:12:00 89 mm[Hg] Unive rsity of pressure [place] [facility] Heart rate 2021-11-01 17:12:00 72 /min Universi ty of [place] [facility] Body temperature 2021-11-01 17:12:00 36.17 Cindi Univ ersity of [place] [facility] Respiratory rate 2021-11-01 17:12:00 18 /min Univ ersity of [place] [facility] Oxygen saturation in 2021-11-01 17:12:00 94 /min University of Arterial blood by [employer] [facility] Pulse oximetry Branch Body height 2021-10-30 23:19:00 195.6 cm Universi ty of [place] [facility] Body weight 2021-10-30 23:19:00 116.983 kg Universi ty of [place] [facility] BMI 2021-10-30 23:19:00 30.58 kg/m2 Universi ty of [place] [facility] Systolic blood 2021-05-24 06:00:00 135 mm[Hg] Univer sity of pressure [place] [facility] Diastolic blood 2021-05-24 06:00:00 97 mm[Hg] Unive rsity of pressure [place] [facility] Heart rate 2021-05-24 06:00:00 88 /min Universi ty of [place] [facility] Respiratory rate 2021-05-24 06:00:00 21 /min Univ ersity of [place] [facility] Oxygen saturation in 2021-05-24 06:00:00 94 /min University of Arterial blood by [place] [facility] amy Pulse oximetry Branch Body temperature 2021-05-24 01:47:00 37.28 Cindi Univ ersity of [place] [facility] Body height 2021-05-24 01:47:00 195.6 cm Universi ty of [place] [facility] Body weight 2021-05-24 01:47:00 127.461 kg Universi ty of [place] [facility] BMI 2021-05-24 01:47:00 33.32 kg/m2 Universi ty of [place] [facility] Systolic blood 2021-05-22 23:36:00 154 mm[Hg] Univer sity of pressure [place] [facility] Diastolic blood 2021-05-22 23:36:00 112 mm[Hg] Unive rsity of pressure [place] [facility] Heart rate 2021-05-22 23:36:00 97 /min Universi ty of [place] [facility] Body temperature 2021-05-22 23:36:00 36 Cindi Univ ersity of [place] [facility] Respiratory rate 2021-05-22 23:36:00 19 /min Univ ersity of [place] [facility] Body height 2021-05-22 23:36:00 195.6 cm Universi ty of [place] [facility] Body weight 2021-05-22 23:36:00 127.007 kg Universi ty of [place] [facility] BMI 2021-05-22 23:36:00 33.20 kg/m2 Universi ty of [place] [facility] Oxygen saturation in 2021-05-22 23:36:00 96 /min University of Arterial blood by [employer] [facility] Pulse oximetry Branch Systolic blood 2021-05-02 00:01:00 157 mm[Hg] Univer sity of pressure [place] [facility] Diastolic blood 2021-05-02 00:01:00 93 mm[Hg] Unive rsity of pressure [place] [facility] Heart rate 2021-05-02 00:01:00 84 /min Universi ty of [place] [facility] Body temperature 2021-05-02 00:01:00 36.56 Cindi Univ ersity of [place] [facility] Respiratory rate 2021-05-02 00:01:00 18 /min Univ ersity of [place] [facility] Body weight 2021-05-02 00:01:00 126.554 kg Universi ty of [place] [facility] BMI 2021-05-02 00:01:00 33.08 kg/m2 Universi ty of [place] [facility] Oxygen saturation in 2021-05-02 00:01:00 97 /min University of Arterial blood by [facility] amy Pulse oximetry Branch Systolic blood 2021-04-02 01:01:00 144 mm[Hg] Univer sity of pressure [place] [facility] Diastolic blood 2021-04-02 01:01:00 94 mm[Hg] Unive rsity of pressure [place] [facility] Heart rate 2021-04-02 01:01:00 89 /min Universi ty of [place] [facility] Body temperature 2021-04-02 01:01:00 37.06 Cindi Univ ersity of [place] [facility] Respiratory rate 2021-04-02 01:01:00 18 /min Univ ersity of [place] [facility] Body weight 2021-04-02 01:01:00 129.729 kg Universi ty of [place] [facility] BMI 2021-04-02 01:01:00 33.91 kg/m2 Universi ty of [place] [facility] Oxygen saturation in 2021-04-02 01:01:00 100 /min University of Arterial blood by [facility] amy Pulse oximetry Branch Systolic blood 2021-04-02 01:01:00 144 mm[Hg] Univer sity of pressure [place] [facility] Diastolic blood 2021-04-02 01:01:00 94 mm[Hg] Unive rsity of pressure [place] [facility] Heart rate 2021-04-02 01:01:00 89 /min Universi ty of [place] [facility] Body temperature 2021-04-02 01:01:00 37.06 Cindi Univ ersity of [place] [facility] Respiratory rate 2021-04-02 01:01:00 18 /min Univ ersity of [place] [facility] Body weight 2021-04-02 01:01:00 129.729 kg Universi ty of [place] [facility] BMI 2021-04-02 01:01:00 33.91 kg/m2 Universi ty of [place] [facility] Oxygen saturation in 2021-04-02 01:01:00 100 /min University of Arterial blood by [facility] Pulse oximetry Branch Systolic blood 2021-03-18 03:16:13 [...] 99 /min University of Arterial blood by [facility] Pulse oximetry Branch Body weight 2021-03-18 01:02:00 129.729 kg Universi ty of [place] [facility] BMI 2021-03-18 01:02:00 33.91 kg/m2 Universi ty of [place] [facility] Systolic blood 2021-03-18 03:16:13 140 [...] 99 /min University of Arterial blood by [facility] Pulse oximetry Branch Body weight 2021-03-18 01:02:00 129.729 kg Universi ty of [place] [facility] BMI 2021-03-18 01:02:00 33.91 kg/m2 Universi ty of [place] [facility] Oxygen saturation in 2020-11-15 04:31:00 97 /min University of Arterial blood by [facility] amy Pulse oximetry Branch Systolic blood 2020-11-15 [...] /min [facility] of Arterial blood by [place] [facility] Pulse oximetry Branch Systolic blood 2020-11-15 03:25:00 [...] 2020-09-30 16:30:00 19 /min Univ ersity of [place] [facility] Oxygen saturation in 2020-09-30 16:30:00 94 /min University of Arterial blood by [place] [facility]y Pulse oximetry Branch Body weight 2020-09-30 14:20:00 136.079 kg Universi ty of [place] [facility] BMI 2020-09-30 14:20:00 35.57 kg/m2 Universi ty of [place] [facility] Body temperature 2020-09-30 14:10:00 37.06 Cindi Univ ersity of [place] [facility] Systolic blood 2020-09-30 16:30:00 121 mm[Hg] Univer sity of pressure [place] [facility] Diastolic blood 2020-09-30 16:30:00 66 mm[Hg] Unive rsity of pressure [place] [facility] Heart rate 2020-09-30 16:30:00 72 /min Universi ty of [place] [facility] Respiratory rate 2020-09-30 16:30:00 19 /min Univ ersity of [place] [facility] Oxygen saturation in 2020-09-30 16:30:00 94 /min [facility] of Arterial blood by [place] [facility] Pulse oximetry Branch Body weight 2020-09-30 14:20:00 136.079 kg Universi ty of [place] [facility] BMI 2020-09-30 14:20:00 35.57 kg/m2 Universi ty of [place] [facility] Body temperature 2020-09-30 14:10:00 37.06 Cindi Univ ersity of [place] [facility] Systolic blood 2020-07-02 04:00:00 132 mm[Hg] Univer sity of pressure [place] [facility] Diastolic blood 2020-07-02 04:00:00 84 mm[Hg] Unive rsity of pressure [place] [facility] Heart rate 2020-07-02 04:00:00 89 /min Universi ty of [place] [facility] Oxygen saturation in 2020-07-02 04:00:00 95 /min University of Arterial blood by [facility] amy Pulse oximetry Branch Body temperature 2020-07-02 02:53:00 36.94 Cindi Univ ersity of [place] [facility] Respiratory rate 2020-07-02 02:53:00 18 /min Univ ersity of [place] [facility] Body height 2020-07-02 02:53:00 195.6 cm Universi ty of [place] [facility] Body weight 2020-07-02 02:53:00 136.079 kg Universi ty of [place] [facility] BMI 2020-07-02 02:53:00 35.57 kg/m2 Universi ty [facility] Systolic blood 2020-07-02 04:00:00 132 mm[Hg] Univer sity of pressure [facility] Diastolic blood 2020-07-02 04:00:00 84 mm[Hg] Unive rsity of pressure [facility] Heart rate 2020-07-02 04:00:00 89 /min Universi [facility] Oxygen saturation in 2020-07-02 04:00:00 95 /min [facility] Arterial blood by [place] [facility] Pulse oximetry Branch Body temperature 2020-07-02 02:53:00 36.94 Cindi [facility] 2020-07-02 02:53:00 18 /min [facility] Body height 2020-07-02 02:53:00 195.6 cm Universi ty [facility] Body weight 2020-07-02 02:53:00 136.079 kg Universi [facility] BMI 2020-07-02 02:53:00 35.57 kg/m2 [facility] BP Systolic 2022-07-09 10:22:00 158 mm[Hg] BP Diastolic 2022-07-09 10:22:00 95 mm[Hg] Weight Measured 2022-07-09 10:22:00 261.40 pounds Height Measured 2022-07-09 10:22:00 77.00 inches Body Temperature 2022-07-09 10:22:00 98.00 degrees Heart Rate 2022-07-09 10:22:00 60.00 /min Respiratory Rate 2022-07-09 10:22:00 16.00 /min BP Systolic 2021-11-20 17:16:00 144 mm[Hg] BP Diastolic 2021-11-20 17:16:00 89 mm[Hg] Weight Measured 2021-11-20 17:16:00 276.40 pounds Height Measured 2021-11-20 17:16:00 77.00 inches Body Temperature 2021-11-20 17:16:00 98.30 degrees Heart Rate 2021-11-20 17:16:00 86.00 /min Respiratory Rate 2021-11-20 17:16:00 17.00 /min BP Systolic 2021-10-17 16:20:00 157 mm[Hg] BP Diastolic 2021-10-17 16:20:00 97 mm[Hg] Weight Measured 2021-10-17 16:20:00 266.80 pounds Height Measured 2021-10-17 16:20:00 77.00 inches Body Temperature 2021-10-17 16:20:00 98.70 degrees Heart Rate 2021-10-17 16:20:00 92.00 /min Respiratory Rate 2021-10-17 16:20:00 BP Systolic 2021-03-20 11:57:00 136 mm[Hg] BP Diastolic 2021-03-20 11:57:00 83 mm[Hg] Weight Measured 2021-03-20 11:57:00 280.40 pounds Height Measured 2021-03-20 11:57:00 77.00 inches Body Temperature 2021-03-20 11:57:00 97.70 degrees Heart Rate 2021-03-20 11:57:00 79.00 /min Respiratory Rate 2021-03-20 11:57:00 16.00 /min BP Systolic 2020-11-14 11:12:00 134 mm[Hg] BP Diastolic 2020-11-14 11:12:00 86 mm[Hg] Weight Measured 2020-11-14 11:12:00 292.20 pounds Height Measured 2020-11-14 11:12:00 77.00 inches Body Temperature 2020-11-14 11:12:00 98.50 degrees Heart Rate 2020-11-14 11:12:00 79.00 /min Respiratory Rate 2020-11-14 11:12:00 16.00 /min Height Measured 2020-04-12 16:15:00 77.00 inches Body Temperature 2020-04-12 16:15:00 97.80 degrees Heart Rate 2020-04-12 16:15:00 91.00 /min Respiratory Rate 2020-04-12 16:15:00 17.00 /min BP Systolic 2020-04-12 16:15:00 130 mm[Hg] BP Diastolic 2020-04-12 16:15:00 91 mm[Hg] Weight Measured 2020-04-12 16:15:00 293.20 pounds BP Systolic 2020-04-12 15:39:00 130 mm[Hg] BP Diastolic 2020-04-12 15:39:00 91 mm[Hg] Weight Measured 2020-04-12 15:39:00 293.20 pounds Height Measured 2020-04-12 15:39:00 77.00 inches Body Temperature 2020-04-12 15:39:00 97.80 degrees Heart Rate 2020-04-12 15:39:00 91.00 /min Respiratory Rate 2020-04-12 15:39:00 17.00 /min Procedures Procedure Date / Time Performing Clinician Source Performed CBC WITH DIFF 2022-10-12 21:26:00 Jana [facility] PROSTATIC SPECIFIC 2022-10-12 10:48:00 Jonh Roman Merged with [facility] HEPATIC FUNCTION PANEL 2022-10-12 10:48:00 Jana [facility] ([id number]) (ALB,T.PRO,[facility] Medical Branch T,BU/BC,ALT,AST,ALK PHOS) BASIC METABOLIC PANEL 2022-10-12 10:48:00 Jana [facility] (NA, K, CL, CO2, GLUCOSE, Medica l Branch BUN, CREATININE, CA) CBC WITH DIFF 2022-10-12 10:48[facility]11 [id number] Medical Branch T,BU/BC,ALT,AST,ALK PHOS) BASIC METABOLIC PANEL 2022-10-11 23:53:00 Jana [facility] (NA, K, CL, CO2, GLUCOSE, Medica l Branch BUN, CREATININE, CA) US GALL BLADDER 2022-10-11 22:28:[facility] (LAB 2022-10-11 21:24:00 Lb [facility] ONLY) Medical Jet URINALYSIS 2022-10-11 21:23:00 Jana [facility] HB ABO GROUPING 2022-10-11 20:41[facility] CBC WITH DIFF 2022-10-11 20:35:00 Jana [facility] CT ANGIOGRAM 2022-10-11 14:52:00 Julian Matos [facility] ABDOMEN/PELVIS [facility] HB ECG ROUTINE & RHYTHM 2022-10-11 13:48:04 Julian Matos [facility] STRIP [facility] Branch LIPASE 2022-10-11 13:42:[address] [facility] TROPONIN I 2022-10-11 13:42:[address] [facility] COMP. METABOLIC PANEL 2022-10-11 13:42:00 Julian Matos [facility] ([id number]) [facility] LIPID PANEL ([id number])(TOTAL 2022-10-11 13:42:00 Jana [facility] CHOLESTEROL, [facility] TRIGLYCERIDES, HDL) CBC WITH DIFF 2022-10-11 13:42:[address] [facility] PROTHROMBIN TIME / INR 2022-10-11 13:42:00 Julian Matos [facility] ACTIVATED PARTIAL 2022-10-11 13:42:00 Julian Matos [facility] THRMPLAS TAE [facility] N-TERMINAL PRO-BNP 2022-10-11 13:42:00 Julian Matos [facility] URINE DRUG (IMMUNOASSAY) 2022-10-11 13:42:00 Julian Matos [facility] DRUG Medical [facility] SCREEN W/O REFLEX CONSENT/REFUSAL FOR 2022-10-11 12:24:48 Doctor Unassigned, [facility] DIAGNOSIS AND TREATMENT [facility] ABDOMEN PELVIS W 2022-10-09 06:30:25 Abraham Orantes [facility] CONTRAST [facility] LIPASE 2022-10-09 05:24:00 Abraham Orantes [facility] COMP. METABOLIC PANEL 2022-10-09 05:24:00 [facility] ([id number]) [facility] CBC WITH DIFF 2022-10-09 05:24:00 Abraham Oratnes [facility] URINALYSIS 2022-10-09 05:24:00 Abraham Orantes [facility] CONSENT/REFUSAL FOR 2022-10-09 03:56:57 Doctor Andrea [facility] DIAGNOSIS AND TREATMENT [facility] COMP. METABOLIC PANEL 2022-08-20 15:11:00 Trevor Perkins [facility] ([id number]) Medical Branch CBC WITH DIFF 2022-08-20 15:11:[address] [facility] URINALYSIS 2022-08-20 15:11:00 Trevor Perkins [facility] CONSENT/REFUSAL FOR 2022-08-20 14:32:58 Doctor Andrea [facility]EL[facility] W 2022-06-09 13:12:35 Tricia [facility] CONTRAST Medical Branch LIPASE 2022-06-09 12:48:00 Soham Patterson [facility] COMP. METABOLIC PANEL 2022-06-09 12:48:00 Soham Patterson [facility] ([id number]) [facility] CBC WITH DIFF 2022-06-09 12:48:00 Soham Patterson [facility] URINALYSIS 2022-06-09 12:48:00 Soham Patterson [facility] NOTICE OF PRIVACY 2022-06-09 11:47:39 Doctor Andrea, [facility] PRACTICES [facility] CONSENT/REFUSAL FOR 2022-06-09 11:47:18 Doctor Andrea [facility] DIAGNOSIS AND TREATMENT [facility] PHOSPHORUS 2021-11-01 09:55:00 Darshan [facility] MAGNESIUM 2021-11-01 09:55:00 Darshan [facility] BASIC METABOLIC PANEL 2021-11-01 09:55:00 Darshan [facility] (NA, K, CL, CO2, GLUCOSE, Medica l Branch BUN, CREATININE, CA) CBC WITH DIFF 2021-11-01 09:55:00 Darshan [facility] PHOSPHORUS 2021-10-31 08:45:[address] [facility] CREATINE KINASE 2021-10-31 08:45:[address] [facility] [facility] MAGNESIUM 2021-10-31 08:45:00 Julián [facility] TROPONIN I 2021-10-31 08:45:[address] [facility] COMP. METABOLIC PANEL 2021-10-31 08:45:00 Roxanne Swenson [facility] ([id number]) [facility] CBC WITH DIFF 2021-10-31 08:45:00 Julián [facility] PROTHROMBIN TIME / INR 2021-10-31 08:45:00 [facility] N-TERMINAL PRO-BNP 2021-10-31 08:45:00 Roxanne Swenson [facility] LACTIC ACID WHOLE BLOOD 2021-10-31 08:45:00 Leela greg [facility] FECES CULTURE 2021-10-30 22:27:00 Monica Hernandez [facility] OCCULT (GUAIAC) BLOOD 2021-10-30 22:27:00 [facility] CLOSTRIDIUM DIFFICILE 2021-10-30 22:27:00 Monica Hernandez [facility] TOXIN [facility] COVID-19 (ID NOW RAPID 2021-10-30 21:24:00 Madison Sepulveda [facility] TESTING) Medical Branch LAB ONLY COVID 2021-10-30 21:24:00 Madison Sepulveda [facility] INTERPRETATION [facility] CT ABDOMEN PELVIS W 2021-10-30 20:44:09 Madison Sepulveda [facility] CONTRAST [facility] Branch LIPASE 2021-10-30 20:25:00 Madison Sepulveda [facility] Medical Jet TROPONIN I 2021-10-30 20:25:[address] [facility] COMP. METABOLIC PANEL 2021-10-30 20:25:00 Madison Sepulveda [facility] ([id number]) Medical Branch CBC WITH DIFF 2021-10-30 20:25:00 Madison Sepulveda [facility] URINALYSIS 2021-10-30 20:25:00 Madison Sepulveda [facility] N-TERMINAL PRO-BNP 2021-10-30 20:25:00 Roxanne Swenson [facility] CONSENT/REFUSAL FOR 2021-10-30 19:24:05 Doctor Unasschava, Solange [facility] DIAGNOSIS AND TREATMENT [facility] CREATINE KINASE 2021-05-24 04:40:00 Felipe Ortega [facility] BASIC METABOLIC PANEL 2021-05-24 04:40:00 Felipe [facility] (NA, K, CL, CO2, GLUCOSE, Medica l Branch BUN, CREATININE, CA) URINALYSIS 2021-05-24 02:14:00 Felipe Ortega [facility] CREATINE KINASE 2021-05-24 01:53:00 Felipe Ortega [facility] TROPONIN I 2021-05-24 01:53:00 Felipe Ortega [facility] COMP. METABOLIC PANEL 2021-05-24 01:53:00 Felipe Ortega [facility] ([id number]) [facility] CBC WITH DIFF 2021-05-24 01:53:00 Felipe Ortega [facility] N-TERMINAL PRO-BNP 2021-05-24 01:53:00 Felipe Ortega [facility] ASSIGNMENT OF BENEFITS 2021-05-23 00:46:04 [facility] CONSENT/REFUSAL FOR 2021-05-22 23:31:57 Doctor Solange Mendez [facility] DIAGNOSIS AND TREATMENT [facility] SARS-COV-2 COVID-19 2021-05-07 16:12:40 Doctor Andrea, [facility] VACCINE,0.3ML,IM (PFIZER) [facility] RAPID STREP SCREEN FOR 2021-05-02 00:07:00 Julian [facility] A Medical Branch COVID-19 (ID NOW RAPID 2021-05-02 00:07:00 Julian Matos [facility] TESTING) Medical Branch CONSENT/REFUSAL FOR 2021-05-01 23:56:07 Doctor [facility] DIAGNOSIS AND TREATMENT [place] [facility] RAPID STREP SCREEN FOR 2021-04-02 01:05:00 Nikhil [facility] GROUP A Medical Branch COVID-19 (ID NOW RAPID 2021-04-02 01:05:00 Nikhil Blanton [facility] TESTING) Medical Branch NOTICE OF PRIVACY 2021-04-02 00:56:18 Doctor Andrea [facility] PRACTICES [facility] CONSENT/REFUSAL FOR 2021-04-02 00:49:05 Doctor [facility] DIAGNOSIS AND TREATMENT [facility] XR WRIST 3+ VW LEFT 2021-03-18 01:19:59 Nikhil Blanton [facility] URINALYSIS 2021-03-18 01:12:00 Nikhil Blanton [facility] CONSENT/REFUSAL FOR 2021-03-18 00:56:01 Doctor Mendez [facility] DIAGNOSIS AND TREATMENT [facility] XR CHEST 1 VW 2020-11-15 03:48:28 Darnell Hsu [facility] CONSENT/REFUSAL FOR 2020-11-15 03:11:27 Doctor Mendez [facility] DIAGNOSIS AND TREATMENT [facility] HEAD WO CONTRAST 2020-09-30 15:00:43 Jessy Siddiqui [facility] XR CHEST 1 VW 2020-09-30 14:37:13 Jessy Siddiqui [facility] LIPASE 2020-09-30 14:25:00 Jessy Siddiqui [facility] TROPONIN I 2020-09-30 14:25:00 Jessy Siddiqui [facility] COMP. METABOLIC PANEL 2020-09-30 14:25:00 Jessy Siddiqui [facility] ([id number]) Medical Branch CBC WITH DIFF 2020-09-30 14:25:00 Jessy Siddiqui [facility] N-TERMINAL PRO-BNP 2020-09-30 14:25:00 Jessy Siddiqui [facility] NOTICE OF PRIVACY 2020-09-30 13:57:13 Doctor Unablessing, [facility] Name [facility] CONSENT/REFUSAL FOR 2020-09-30 13:55:57 Doctor Andrea [facility] 2020-07-02 03:20:42 Felipe Ortega [facility] LIPASE 2020-07-02 03:05:00 Abraham Orantes [facility] TROPONIN I 2020-07-02 03:05:00 Felipe Ortega [facility] COMP. METABOLIC PANEL 2020-07-02 03:05:00 Abraham Orantes [facility] ([id number]) [facility] CBC WITH DIFF 2020-07-02 03:05:00 Abraham Orantes [facility] NOTICE OF PRIVACY 2020-07-02 02:48:43 Doctor Andrea, [facility] CONSENT/REFUSAL FOR 2020-07-02 02:46:14 Doctor Andrea [facility] DIAGNOSIS AND TREATMENT [facility] Plan of Care Planned Activity Planned Date Details Comments Source Goal Plan of Care Note [code = 32493-4] Goal Plan of Care Note [code = 73469-2] Goal Plan of Care Note [code = 82305-3] Goal Plan of Care Note [code = 06851-3] Goal Plan of Care Note [code = 76913-2] Goal Plan of Care Note [code = 63060-8] Goal Plan of Care Note [code = 32123-9] Goal Plan of Care Note [code = 07188-2] Goal Plan of Care Note [code = 16259-3] Goal Plan of Care Note [code = 05173-2] Goal Plan of Care Note [code = 98226-5] Goal Plan of Care Note [code = 28729-8] Goal Plan of Care Note [code = 58958-5] Goal Plan of Care Note [code = 26547-6] Goal Plan of Care Note [code = 69918-8] Encounters Start End Encounter Admission Attending Care Care Encounter Source Date/Time Date/Time Type Type Clinicians Facility Department ID 2022-07-29 Outpatient ANAM James [facility] [id number] Common 14:17:02 Mayuri [id number] [facility] 2022-07-11 Outpatient ANAM James [facility] [id number] Common 08:20:03 Mayuri [id number] [facility] 2022-10-11 2022-10-12 Outpatient X DAVID [facility] MARTI [id number] Univers 06:41:00 17:56:00 MARK ity [facility] 2022-10-11 2022-10-12 Emergency Carlo Julian OROURKENIE 1.2.840. 114 [id number] Univers 06:41:00 17:56:00 Mark Hernandez 350.1.13.10 ity of [facility] 4.2.7.2.686 Jim as [id number] [facility] 093 Branch 2022-10-08 2022-10-09 Emergency X [facility] ERT [id number] Univers 22:15:00 01:39:00 HIKILI ity [facility] 2022-10-08 2022-10-09 [facility] 1.2.652.656 [id number] Univers 22:15:00 01:39:00 Abraham RODRIGUEZ 350.1.13.10 ity of [place] 4.2.7.2.686 [facility] [id number] [facility] 084 Branch 2022-10-08 2022-10-08 Orders Doctor KARL 1.2.840.114 [id number] Univers 00:00:00 00:00:00 Only Unassigned, EVE 350.1.13.10 ity of [place] [facility] 4.2.7.2.686 Jim as [id number] [facility] 009 Branch 2022-08-20 2022-08-20 Emergency X Trevor PERKINS [facility] ERT [id number] Univers 08:42:00 12:19:00 ity of [facility] 2022-08-20 2022-08-20 Emergency Trevor Perkins [facility] 1.2.840.114 [id number] Univers 08:42:00 12:19:00 Tiffanie SIMMONSCHINA 350.1.13.10 i ty of [facility] 4.2.7.2.[place] [id number] [place] [id number] Branch 2022-07-11 2022-07-11 OFFICE [facility] [id number] Co mmon 00:00:00 00:00:00 VISIT [facility] PT LEVEL 3 - [facility] 2022-07-09 2022-07-09 Outpatient [facility] [id number] Dewey 10:07:22 10:07:22 1026 F Kris 2022-07-09 2022-07-09 Outpatient [id number] 00:00:00 00:00:00 Visit [id number] 2022-06-09 2022-06-09 Emergency X [facility] ERT [id number] Univers 06:57:00 10:27:00 SOHAM hester of [facility] 2022-06-09 2022-06-09 Emergency [facility] [id number] Univers 06:57:00 10:27:00 [place]deep RODRIGUEZ 350.1.13.10 ity of [facility] 4.2.7.2.686 [facility] [id number] [address] 2022-06-09 2022-06-09 Orders Doctor KARL 1.2.840.114 [id number] Univers 00:00:00 00:00:00 Only Unassigned, EVE 350.1.13.10 ity of [place] [facility] 4.2.7.2.686 Jim as [id number] [facility] 009 Branch 2021-11-04 2021-11-04 Transition KAMLA Carroll 1.2.840.114 [id number] Univers 00:00:00 00:00:00 of Care Ellen MOORE 350.1.13.10 i ty of [place] [id number] [facility] 403 Branch 2021-10-30 2021-11-01 Inpatient X JULIÁN [facility] MARTI [id number] Univers 13:39:00 13:45:00 EMELIA ity of [facility] 2021-10-30 2021-11-01 Hospital Madison Sepulveda [facility] 1.2.8 40.114 [id number] Univers 13:39:00 13:45:00 Encounter Emelia Gallego MICHAEL 350.1.13.10 ity of [place] 4.2.7.2.686 [facility] [id number] [facility] 081 Branch 2021-10-30 2021-10-30 Orders Doctor KARL 1.2.840.114 [id number] Univers 00:00:00 00:00:00 Only Unassigned, EVE 350.1.13.10 ity of [place] [facility] 4.2.7.2.686 Jim [id number] [facility] 009 Branch 2021-05-23 2021-05-24 Emergency [facility] 1.2.840.114 [id number] Univers 20:42:00 01:42:00 Felipechanda Rodriguez 350.1.13.10 i ty of [place] 4.2.7.2.686 [facility] [id number] [facility] 084 Branch 2021-05-23 2021-05-23 Emergency X [place], [facility] ERT [id number] Univers 20:42:00 20:42:00 FELIPE ity of [facility] 2021-05-22 2021-05-22 Emergency [facility] 1.2.469.748 [id number] Univers 18:37:00 21:40:00 Gabriella Rodriguez 350.1.13.10 ity of [place] 4.2.7.2.686 [facility] [id number] [facility] 084 Branch 2021-05-22 2021-05-22 Emergency X [facility] ERT [id number] Univers 18:31:00 18:31:00 ity of [facility] 2021-05-07 2021-05-07 Imm/Inj Nurse, Adc Pob Immunization [facility] 1.2.840.114 [id number] Univers 11:11:35 11:11:42 Visit David Clarke Michael 350.1.13 .10 ity of [place] 4.2.7.2.[address] [place], [place] [address]essio [phone] Sd dic[address] 2021-05-01 2021-05-01 Emergency [place], [facility] 1.2.840.114 [id number] Univers 19:09:00 20:46:00 Nikhil [place] 350.1.13.10 i ty of [place] 4.2.7.2.[address] [place] [id number] 2021-05-01 2021-05-01 Emergency X [facility] ERT [id number] Univers 18:53:00 [facility]53[facility] 2021-04-01 2021-04-01 Emergency [place], [facility] 1.2.840.114 [id number] 20:06:00 21:56:00 Nikhil [place] 350.1.13.10 [place] [address] [place] [address] [id number] [facility] 2021-04-01 2021-04-01 Emergency [place], [facility] 1.2.840.114 [id number] Univers 20:06:00 21:56:00 Nikhil [place] 350.1.13.10 i ty of [place] 4.2.7.2.[address] [place] [id number] 2021-04-01 2021-04-01 Emergency X [place], [facility] ERT [id number] Univers 20:06:00 20:06:00 NIKHIL ity [facility] 2021-03-17 2021-03-17 Emergency [place], [facility] 1.2.840.114 [id number] 20:09:00 22:19:00 Nikhil [place] 350.1.13.10 [place] [address] [place] [address] [id number] 084 2021-03-17 2021-03-17 Emergency [place], [facility] 1.2.840.114 [id number] Univers 20:09:00 22:19:00 Nikhil [place] 350.1.13.10 i ty of [place] 4.2.7.2.686 [facility] [phone] [place] 080[address] Branch 2021-03-17 2021-03-17 Emergency X [facility] ERT [id number] Univers 19:56:00 19:56:00 ity of [facility] 2020-11-15 2020-11-15 Telephone PcpKARL [id number] 00:00:00 00:00:00 Patient EVE 350.1.13.10 Does Not HOSPITAL 4.2.7.2.686 Have A [id number] 019 2020-11-15 2020-11-15 Letter KARL Mar 1.2.840.114 [id number] 00:00:00 00:00:00 (Out) Mirna Topete EVE 350.1.13.10 [facility] 4.2.7.2.686 [id number] 019 2020-11-15 2020-11-15 Letter KARL Mar 1.2.840.114 [id number] Univers 00:00:00 00:00:00 (Out) Mirna Topete EVE 350.1.13.10 it y of HOSPITAL 4.2.7.2.686 [place] as [id number] [address] 2020-11-15 2020-11-15 Telephone PcpKARL 1.2.712.308 [id number] Univers 00:00:00 00:00:00 Patient EVE 350.1.13.10 it y of Does [facility] [place].2.[place] [id number] [place] [address] Branch 2020-11-14 2020-11-14 Emergency [facility] 1.2.058.516 [id number] 21:29:00 22:55:00 Darnell Rodriguez 350.1.13.10 [place] 4.2.7.2.686 [place] [id number] 084 2020-11-14 2020-11-14 Emergency [facility] 1.2.652.900 [id number] Univers 21:29:00 22:55:00 Darnell Rodriguez 350.1.13.10 i ty of [place] 4.2.7.2.686 [facility] [id number] [address] 2020-11-14 2020-11-14 Emergency X [facility] ERT [id number] Univers 21:29:00 22:55:00 DARNELL ity [facility] 2020-09-30 2020-09-[address] [facility] 1.2.840.114 [id number] 08:03:00 10:45:00 Jessy Rodriguez 350.1.13.10 [place] 4.2.7.2.686 [place] [id number] [facility] 2020-09-30 2020-09-30 Emergency [facility] 1.2.840.114 [id number] Univers 08:03:00 10:45:00 Jessy Rodriguez 350.1.13.10 ity [facility] 4.2.7.2.686 [facility] [id number] [address] 2020-09-30 2020-09-30 Emergency X [facility] ERT [id number] Univers 07:58:00 07:58:00 ity [facility] 2020-09-30 2020-09-30 Orders Doctor BARAJAS 1.2.840.114 [id number] 00:00:00 00:00:00 Only Unassigned, EVE 350.1.13.10 [place] [facility] 4.2.7.2.686 [id number] 009 2020-09-30 2020-09-30 Orders Doctor KARL 1.2.840.114 [id number] Univers 00:00:00 00:00:00 Only Unassigned, EVE 350.1.13.10 ity of [place] HOSPITAL 4.2.7.2.686 Jim [id number] [address] 2020-07-01 2020-07-01 Emergency [facility] 1.2.840.114 [id number] 21:58:00 23:54:00 Felipe Rodriguez 350.1.13.10 [place] 4.2.7.2.686 [place] [id number] [facility] 2020-07-01 2020-07-01 Emergency [facility] 1.2.840.114 [id number] Univers 21:58:00 23:54:00 Felipe Yenifer Rodriguez 350.1.13.10 i ty rosalee Estrada 4.2.7.2.686 [facility] [id number] [facility] 084 Branch 2020-07-01 2020-07-01 Emergency X SHANNON [facility] ERT [id number] Univers 21:58:00 21:58:00 FELIPE ity of [facility] Results Test Description Test Time Test Comments Results Result Comments Source CBC with Differential 2022-10-12 22:09:52 Test Item Value Reference Range Interpretation Comme nts WBC (test code = 6690-2) See_Comment [A utomated message] The system which ge nerated this result transmit delvin reference range: 4.20 - 1 0.70 10*3/?L. The reference r andrea was not used to interpr et this result as normal/abnor mal. RBC (test code = 789-8) See_Comment [Au tomated message] The system which ge nerated this result transmit delvin reference range: 4.26 - 5 .52 10*6/?L. The reference r andrea was not used to interpr et this result as normal/abnor mal. HGB (test code = 718-7) 13.9 g/dL 12.2-16.4 HCT (test code = 4544-3) 39.2 % 38.4-49.3 MCV (test code = 787-2) 84.3 fL 81.7-95.6 MCH (test code = 785-6) 29.9 pg 26.1-32.7 MCHC (test code = 786-4) 35.5 g/dL 31.2-35.0 H RDW-SD (test code = 57683-8) 39.2 fL 38.5-51.6 RDW-CV (test code = 788-0) 12.9 % 12.1-15.4 PLT (test code = 777-3) See_Comment [Au tomated message] The system which ge nerated this result transmit delvin reference range: 150 - 32 8 10*3/?L. The reference range was not used to interpret th is result as normal/abnormal . MPV (test code = 57224-2) 9.0 fL 9.8-13.0 L NRBC/100 WBC (test code = See_Comment [ Automated message] The 7782135279) system which [employer] nerated this result transmit delvin reference range: 0.0 - 10 .0 /100 WBCs. The reference r andrea was not used to interpr et this result as normal/abnor mal. NRBC x10^3 (test code = See_Comment [Au tomated message] The 9942239370) system which [employer] nerated this result transmit delvin reference range: 10*3/?L. The reference range was not u sed to interpret this result as normal/abnormal . GRAN MAT (NEUT) % (test code 35.3 % = 770-8) IMM GRAN % (test code = 0.00 % 3025639622) LYMPH % (test code = 736-9) 56.0 % MONO % (test code = 5905-5) 7.9 % EOS % (test code = 713-8) 0.4 % BASO % (test code = 706-2) 0.4 % GRAN MAT x10^3(ANC) (test 1.87 10*3/uL 1.99-6.95 L code = 1540881163) IMM GRAN x10^3 (test code = 0.00-0.06 0564841234) LYMPH x10^3 (test code = 2.97 10*3/uL 1.09-3.23 731-0) MONO x10^3 (test code = 0.42 10*3/uL 0.36-1.02 742-7) EOS x10^3 (test code = 0.06-0.53 L 711-2) BASO x10^3 (test code = 0.01-0.09 704-7) Lab Interpretation (test Abnormal code = 42517-2) [facility] METABOLIC PANEL (NA, K, CL, CO2, GLUCOSE, BUN, CREATININE, CA)2022-10-12 00:25:13 Test Item Value Reference Range Interpretation Comments NA (test code = 136 mmol/L 135-145 0691742575) K (test code = 3.5 mmol/L 3.5-5.0 1508878861) CL (test code = 103 mmol/L 98-108 4416639319) CO2 TOTAL (test code = 26 mmol/L 23-31 9863869861) AGAP (test code = 2-16 4027918884) BUN (test code = 14 mg/dL 7-23 6564801520) GLUCOSE (test code = 157 mg/dL 70-110 H 0760389664) CREATININE (test code = 0.80 mg/dL 0.60-1.25 1238834059) CALCIUM (test code = 8.4 mg/dL 8.6-10.6 L 2184617634) eGFR (test code = mL/min/1.73m2 3810334342) KRYSTLE (test code = KRYSTLE) Association of [...] tests). Lab Interpretation Abnormal (test code = 38096-3) [facility]43758[facility] (ALB,T.PRO,BILI T,BU/BC,ALT,AST,ALK PHOS)2022-10-12 00:25:13 Test Item Value Reference Range Interpretation Comments TOTAL BILI (test code = 2464268890) 1.2 mg/dL 0.1-1.1 H BILI UNCON (test code = 2005777612) 1.0 mg/dL 0.1-1.1 BILI CONJ (test code = 0814098313) 0.0 mg/dL 0.0-0.3 T PROTEIN (test code = 3345243095) 7.1 g/dL 6.3-8.2 ALBUMIN (test code = 0677490309) 4.0 g/dL 3.5-5.0 ALK PHOS (test code = 5253637840) 59 U/L 34-122 ALTv (test code = 1742-6) 38 U/L 5-50 AST(SGOT) (test code = 2850193561) 61 U/L 13-40 H Lab Interpretation (test code = Abnormal 55450-1) [facility] Conf[facility] (Lab Only)2022-10-11 21:35:47 Test Item Value Reference Range Interpretation Comments ABO & RH (test code O Positive Performe d at [facility] = 20) [facility] [place] [address] s [id number] Free: [phone] A No. [id number] [facility] Irving[facility] and Screen - ONCE [id number] 21:25:51 Test Item Value Reference Range Interpretation Comments ABO & RH (test code O POSITIVE Performe d at [place] = 20) [facility] [place] [address] s [id number] Free: [phone] A No. [id number] IAT (test code = Negative Performed a t [place] 1185) [facility] [place] [address] s [id number] Free: [phone] A No. [id number] [facility] WITH [id number] 20:47:43 Test Item Value Reference Range Interpretation Comments [...] as normal/abnormal . HGB (test code = 14.3 g/dL 12.2-16.4 718-7) HCT (test code = 40.7 % 38.4-49.3 4544-3) MCV (test code = 85.5 fL 81.7-95.6 787-2) MCH (test code = 30.0 pg 26.1-32.7 785-6) MCHC (test code = 35.1 g/dL 31.2-35.0 H 786-4) RDW-SD (test code = 41.1 fL 38.5-51.6 41840-1) RDW-CV (test code = 13.2 % 12.1-15.4 788-0) PLT (test code = See_Comment [Automated 777-3) message] The sy stem which generated this result transmitted reference range : 150 - 328 10*3/ ?L. The reference r andrea was not used to interpret this result as normal/abnormal . MPV (test code = 9.5 fL 9.8-13.0 L 71272-0) NRBC/100 WBC (test See_Comment [Automat ed code = 0508531901) message] The system which generated this result transmitted reference range : 0.0 - 10.0 /100 WBCs. The refer ence range was not u sed to interpret th is result as normal/abnormal . NRBC x10^3 (test code See_Comment [Auto mated = 7961529449) message] The s ystem which generated this result transmitted reference range : 10*3/?L. The reference range was not used to interpret this result as normal/abnormal . GRAN MAT (NEUT) % 38.2 % (test code = 770-8) IMM GRAN % (test code 0.00 % = 7893882409) LYMPH % (test code = 53.7 % 736-9) MONO % (test code = 7.5 % 5905-5) EOS % (test code = 0.3 % 713-8) BASO % (test code = 0.3 % 706-2) GRAN MAT x10^3(ANC) 2.46 10*3/uL 1.99-6.95 (test code = 4628357146) IMM GRAN x10^3 (test 0.00-0.06 code = 2490526437) LYMPH x10^3 (test code 3.46 10*3/uL 1.09-3.23 H = 731-0) MONO x10^3 (test code 0.48 10*3/uL 0.36-1.02 = 742-7) EOS x10^3 (test code = 0.06-0.53 L 711-2) BASO x10^3 (test code 0.01-0.09 = 704-7) Lab Interpretation Abnormal (test code = 97482-4) [facility] (98740)(TOTAL CHOLESTEROL, TRIGLYCERIDES, HDL)2022-10-11 20:32:44 Test Item Value Reference Range Interpretation Comments CHOL (test code = 195 mg/dL 120-200 6538644041) HDL (test code = 36 mg/dL See_Comment L [Automated message] 8886385945) The system [employer] generated this result transmit delvin reference range : >=40. The refer ence range was not u sed to interpret th is result as normal/abnormal . HDLC RATIO (test code = See_Comment H [Au tomated message] [id number]) The system [employer] generated this result transmit delvin reference range : <=5.0. The refe rence range was not u sed to interpret th is result as normal/abnormal . TRIG (test code = 84 mg/dL 30-170 [id number]) LDL CHOL (test code = 142 mg/dL See_Comment [Auto mated message] 72130-2) The system [employer] generated this result transmit delvin reference range : <=160. The refe rence range was not u sed to interpret th is result as normal/abnormal . VLDL (test code = 17 mg/dL 5-60 [id number]) Lab Interpretation (test Abnormal code = 93478-0) [facility]-[id number] 14:23:55 Test Item Value Reference Range Interpretation Comments NT-proBNP (test code See_Comment [Autom ated = [id number]) message] The system which generated this result transmitted reference range : <=125. The reference range was not used to interpret this result as normal/abnormal . KRYSTLE (test code = KRYSTLE) Biotin has been reported to cause a negative bias, interpret results relative to patient's use of biotin. Lab Interpretation Normal (test code = 26459-6) [facility] THRMPLAS [id number] 14:23:25 Test Item Value Reference Range Interpretation Comments APTT Patient (test See_Comment [Automat ed code = 3173-2) message] The system which generated this result transmitted reference range : 23 - 38 Seconds . The reference range was not used to interpr et this result as normal/abnormal . KRYSTLE (test code = KRYSTLE) The [facility] patient population mean normal value for aPTT is 30 seconds. Lab Interpretation Normal (test code = 06124-9) [facility] 14:23:05 Test Item Value Reference Range Interpretation Comments LIPASE (test code = 5270748044) 502 U/L 0-220 H Lab Interpretation (test code = Abnormal 74839-1) [id number] 14:23:05 Test Item Value Reference Range Interpretation Comments NA (test code = 139 mmol/L 135-145 1209882498) K (test code = 5.0 mmol/L 3.5-5.0 Slight 8768133395) hemolysis CL (test code = 103 mmol/L 98-108 2703809473) CO2 TOTAL (test code 28 mmol/L 23-31 = 3463244155) AGAP (test code = 2-16 1795477846) BUN (test code = 17 mg/dL 7-23 Slight 2114813055) hemolysis GLUCOSE (test code = 103 mg/dL 70-110 9615227868) CREATININE (test code 0.80 mg/dL 0.60-1.25 = 9912677582) TOTAL BILI (test code 1.6 mg/dL 0.1-1.1 H = 6681434935) CALCIUM (test code = 9.0 mg/dL 8.6-10.6 6559404033) T PROTEIN (test code 8.4 g/dL 6.3-8.2 H = 7639649971) ALBUMIN (test code = 4.8 g/dL 3.5-5.0 3737139672) ALK PHOS (test code = 57 U/L 34-122 Slight 4108671142) hemolysis ALTv (test code = 49 U/L 5-50 1742-6) AST(SGOT) (test code 77 U/L 13-40 H Slight = 7948442781) hemolysis eGFR (test code = mL/min/1.73m2 2332357391) KRYSTLE (test code = KRYSTLE) Association of Glomerular Filtration Rate (GFR) and Staging of Kidney Disease* + -----+ --------+ +| GFR (mL/min/1.73 m2) ?| With Kidney Damage ?| ?Without Kidney Damage+ +------- +---- --+| ?>90 ?| ?Stage one ?| ? Normal ?+ ------+ ---------+--------- +| ?60-89 ?| ?Stage two ?| ? Decreased GFR ? + -----+ --------+ +| ?30-59 ?| ?Stage three ?| ? Stage three ? + -----+ --------+ +| ?15-29 ?| ?Stage four ? | ? Stage four ?+ ------+ ---------+--------- +| ?<15 (or dialysis) ? ?| ?Stage five ? | ? Stage five ?+ ------+ ---------+--------- + *Each stage assumes the associated GFR level [...] tests). Lab Interpretation Abnormal (test code = 12447-1) [facility] IrvingMELISSA [id number] 14:23:05 Test Item Value Reference Interpretation Comments Range TROPONIN I (test 0.018 ng/mL See_Comment [Automated code = 7753217597) message] The system which generated this result [...] biotin. Lab Interpretation Normal (test code = 24809-8) [facility] IrvingPROTHROMBIN TIME / [id number] 14:20:24 Test Item Value Reference Range Interpretation Comments [...] tions. Lab Interpretation (test Normal code = 93223-6) [facility] WITH [id number] 13:55:05 Test Item Value Reference Range Interpretation Comments WBC (test code = See_Comment [Automated 7990-2) message] The sy stem which generated this result transmitted reference range : 4.20 - 10.70 10*3/?L. The reference range was not used to interpret this result as normal/abnormal . RBC (test code = See_Comment [Automated 149-8) message] The sy stem which generated this result transmitted reference range : 4.26 - 5.52 10*6/?L. The reference range was not used to interpret this result as normal/abnormal . HGB (test code = 15.7 g/dL 12.2-16.4 718-7) HCT (test code = 45.0 % 38.4-49.3 4544-3) MCV (test code = 85.2 fL 81.7-95.6 787-2) MCH (test code = 29.7 pg 26.1-32.7 785-6) MCHC (test code = 34.9 g/dL 31.2-35.0 786-4) RDW-SD (test code = 40.4 fL 38.5-51.6 35209-5) RDW-CV (test code = 13.0 % 12.1-15.4 788-0) PLT (test code = See_Comment [Automated 777-3) message] The sy stem which generated this result transmitted reference range : 150 - 328 10*3/ ?L. The reference r andrea was not used to interpret this result as normal/abnormal . MPV (test code = 9.1 fL 9.8-13.0 L 23278-4) NRBC/100 WBC (test See_Comment [Automat ed code = 0947868993) message] The system which generated this result transmitted reference range : 0.0 - 10.0 /100 WBCs. The refer ence range was not u sed to interpret th is result as normal/abnormal . NRBC x10^3 (test code See_Comment [Auto mated = 7272331362) message] The s ystem which generated this result transmitted reference range : 10*3/?L. The reference range was not used to interpret this result as normal/abnormal . GRAN MAT (NEUT) % 53.2 % (test code = 770-8) IMM GRAN % (test code 0.10 % = 8632907904) LYMPH % (test code = 36.6 % 736-9) MONO % (test code = 9.3 % 5905-5) EOS % (test code = 0.5 % 713-8) BASO % (test code = 0.3 % 706-2) GRAN MAT x10^3(ANC) 4.25 10*3/uL 1.99-6.95 (test code = 5677972120) IMM GRAN x10^3 (test 0.00-0.06 code = 5770441969) LYMPH x10^3 (test code 2.92 10*3/uL 1.09-3.23 = 731-0) MONO x10^3 (test code 0.74 10*3/uL 0.36-1.02 = 742-7) EOS x10^3 (test code = 0.04 10*3/uL 0.06-0.53 L 711-2) BASO x10^3 (test code 0.01-0.09 = 704-7) Lab Interpretation Abnormal (test code = 75011-5) [facility] METABOLIC PANEL ([id number])2022-06-09 13:23:22 Test Item Value Reference Range Interpretation Comments NA (test code = 138 mmol/L 135-145 3544173519) K (test code = 4.5 mmol/L 3.5-5 0280152091) CL (test code = 106 mmol/L 98-108 3055278286) CO2 TOTAL (test code 24 mmol/L 23-31 = 5564117258) AGAP (test code = 2-16 4988250165) BUN (test code = 18 mg/dL 7-23 3419229232) GLUCOSE (test code = 97 mg/dL 70-110 9931460616) CREATININE (test code 0.98 mg/dL 0.6-1.25 = 0358347347) TOTAL BILI (test code 0.5 mg/dL 0.1-1.1 = 7816796599) CALCIUM (test code = 9.3 mg/dL 8.6-10.6 3021774427) T PROTEIN (test code 7.3 g/dL 6.3-8.2 = 3912559667) ALBUMIN (test code = 4.5 g/dL 3.5-5 4550564310) ALK PHOS (test code = 65 U/L 34-122 6646373486) ALTv (test code = 27 U/L 5-50 1742-6) AST(SGOT) (test code 33 U/L 13-40 = 2701445981) eGFR (test code = mL/min/1.73m2 7722322359) KRYSTLE (test code = KRYSTLE) Association of Glomerular Filtration Rate (GFR) and Staging of Kidney Disease* + + +- +| GFR (mL/min/1.73 m2) ?| With Kidney Damage ?| ?Without Kidney Damage+ ------+ ----+ ------+| ?>90 ?| ?Stage one ?| ? Normal ?+ -+ + -+| ?60-89 ?| ?Stage two ?| ? Decreased GFR ? + + +- +| ?30-59 ?| ?Stage three ?| ? Stage three ? + + +- +| ?15-29 ?| ?Stage four ? | ? Stage four ?+ -+ + -+| ?<15 (or dialysis) ? ?| ?Stage five ? | ? Stage five ?+ -+ + -+ *Each stage assumes the associated GFR level [...] or urine or abnormalities in imaging tests). [facility] 13:23:01 Test Item Value Reference Range Interpretation Comments LIPASE (test code = 6346805966) 596 U/L 0-220 H Lab Interpretation (test code = Abnormal 69977-7) [facility] WITH [id number] 13:09:00 Test Item Value Reference Range Interpretation Comments WBC (test code = See_Comment [Automated 1621-2) message] The sy stem which generated this result transmitted reference range : 4.20 - 10.70 10*3/?L. The reference range was not used to interpret this result as normal/abnormal . RBC (test code = See_Comment [Automated 177-4) message] The sy stem which generated this result transmitted reference range : 4.26 - 5.52 10*6/?L. The reference range was not used to interpret this result as normal/abnormal . HGB (test code = 15.0 g/dL 12.2-16.4 228-7) HCT (test code = 42.1 % 38.4-49.3 4544-3) MCV (test code = 85.4 fL 81.7-95.6 787-2) MCH (test code = 30.4 pg 26.1-32.7 785-6) MCHC (test code = 35.6 g/dL 31.2-35 H 786-4) RDW-SD (test code = 38.3 fL 38.5-51.6 L 52234-7) RDW-CV (test code = 12.3 % 12.1-15.4 788-0) PLT (test code = See_Comment [Automated 777-3) message] The sy stem which generated this result transmitted reference range : 150 - 328 10*3/ ?L. The reference r andrea was not used to interpret this result as normal/abnormal . MPV (test code = 9.2 fL 9.8-13 L 07328-0) NRBC/100 WBC (test See_Comment [Automat ed code = 8802707556) message] The system which generated this result transmitted reference range : 0.0 - 10.0 /100 WBCs. The refer ence range was not u sed to interpret th is result as normal/abnormal . NRBC x10^3 (test code See_Comment [Auto mated = 6361576329) message] The s ystem which generated this result transmitted reference range : 10*3/?L. The reference range was not used to interpret this result as normal/abnormal . GRAN MAT (NEUT) % 47.3 % (test code = 770-8) IMM GRAN % (test code 0.30 % = 9272363999) LYMPH % (test code = 43.8 % 736-9) MONO % (test code = 7.8 % 5905-5) EOS % (test code = 0.5 % 713-8) BASO % (test code = 0.3 % 706-2) GRAN MAT x10^3(ANC) 3.04 10*3/uL 1.99-6.95 (test code = 3811490661) IMM GRAN x10^3 (test 0-0.06 code = 3801294224) LYMPH x10^3 (test code 2.81 10*3/uL 1.09-3.23 = 731-0) MONO x10^3 (test code 0.50 10*3/uL 0.36-1.02 = 742-7) EOS x10^3 (test code = 0.03 10*3/uL 0.06-0.53 L 711-2) BASO x10^3 (test code 0.01-0.09 = 704-7) Lab Interpretation Abnormal (test code = 18215-0) [facility] METABOLIC PANEL (NA, K, CL, CO2, GLUCOSE, BUN, CREATININE, CA)2021-11-01 10:40:12 Test Item Value Reference Range Interpretation Comments NA (test code = 136 mmol/L 135-145 1663530027) K (test code = 4.2 mmol/L 3.5-5.0 0852950417) CL (test code = 104 mmol/L 98-108 5813543598) CO2 TOTAL (test code = 31 mmol/L 23-31 0293159280) AGAP (test code = 2-16 L 9987093287) BUN (test code = 15 mg/dL 7-23 4337720605) GLUCOSE (test code = 91 mg/dL 70-110 8299494455) CREATININE (test code = 0.96 mg/dL 0.60-1.25 0001630210) CALCIUM (test code = 8.5 mg/dL 8.6-10.6 L 2440591532) eGFR (test code = mL/min/1.73m2 9463553064) KRYSTLE (test code = KRYSTLE) Association of [...] tests). Lab Interpretation Abnormal (test code = 36211-4) [facility]IUM2022-02-18 10:40:12 Test Item Value Reference Range Interpretation Comments MAGNESIUM (test code = 8633193637) 1.7 mg/dL 1.7-2.4 Lab Interpretation (test code = Normal 01588-5) [facility] IrvingPHOSPHORUS2022-02-18 10:39:52 Test Item Value Reference Range Interpretation Comments PHOSPHORUS (test code = 7690122896) 4.4 mg/dL 2.5-5.0 Lab Interpretation (test code = Normal 38926-8) [facility] WITH [id number] 10:25:11 Test Item Value Reference Range Interpretation Comments WBC (test code = See_Comment [Automated 7616-2) message] The sy stem which generated this result transmitted reference range : 4.20 - 10.70 10*3/?L. The reference range was not used to interpret this result as normal/abnormal . RBC (test code = See_Comment [Automated 429-8) message] The sy stem which generated this [...] RDW-SD (test code = 38.5 fL 38.5-51.6 16038-7) RDW-CV (test code = 12.3 % 12.1-15.4 788-0) PLT (test code = See_Comment [Automated 777-3) message] The sy stem which generated this result transmitted reference range : 150 - 328 10*3/ ?L. The reference r andrea was not used to interpret this result as normal/abnormal . MPV (test code = 9.6 fL 9.8-13.0 L 85473-3) NRBC/100 WBC (test See_Comment [Automat ed code = 1514787208) message] The system which generated this result transmitted reference range : 0.0 - 10.0 /100 WBCs. The refer ence range was not u sed to interpret th is result as normal/abnormal . NRBC x10^3 (test code <0.01 See_Comment [Auto mated = 4601964904) message] The s ystem which generated this result transmitted reference range : 10*3/?L. The reference range was not used to interpret this result as normal/abnormal . GRAN MAT (NEUT) % 49.5 % (test code = 770-8) IMM GRAN % (test code 0.30 % = 9211957288) LYMPH % (test code = 39.4 % 736-9) MONO % (test code = 9.7 % 5905-5) EOS % (test code = 0.8 % 713-8) BASO % (test code = 0.3 % 706-2) GRAN MAT x10^3(ANC) 3.13 10*3/uL 1.99-6.95 (test code = 1022365707) IMM GRAN x10^3 (test <0.03 0.00-0.06 code = 5485358538) LYMPH x10^3 (test code 2.49 10*3/uL 1.09-3.23 = 731-0) MONO x10^3 (test code 0.61 10*3/uL 0.36-1.02 = 742-7) EOS x10^3 (test code = 0.05 10*3/uL 0.06-0.53 L 711-2) BASO x10^3 (test code <0.03 0.01-0.09 = 704-7) Lab Interpretation Abnormal (test code = 95092-6) [facility] IrvingN-TERMINAL [id number] 17:32:56 Test Item Value Reference Range Interpretation Comments NT-proBNP (test code 13 pg/mL See_Comment [Autom ated = 0638990818) message] The system which generated this result transmitted reference range : <=125. The reference range was not used to interpret this result as normal/abnormal . KRYSTLE (test code = KRYSTLE) Biotin has been reported to cause a negative bias, interpret results relative to patient's use of biotin. Lab Interpretation Normal (test code = 73753-5) [facility] IrvingN-TERMINAL [id number] 10:50:49 Test Item Value Reference Range Interpretation Comments NT-proBNP (test code <11 See_Comment [Autom ated = 0360876356) message] The system which generated this result transmitted reference range : <=125 pg/mL. Th e reference range was not used to interpret this result as normal/abnormal . KRYSTLE (test code = KRYSTLE) Biotin has been reported to cause a negative bias, interpret results relative to patient's use of biotin. Lab Interpretation Normal (test code = 22647-5) [facility] IrvingTRVIMALALYSHAN [id number] 10:36:56 Test Item Value Reference Interpretation Comments Range TROPONIN I (test 0.004 ng/mL See_Comment [Automated code = 2896396853) message] The system which generated this result [...] biotin. Lab Interpretation Normal (test code = 66017-6) [facility]. METABOLIC PANEL ([id number])2021-10-31 10:33:50 Test Item Value Reference Range Interpretation Comments NA (test code = 139 mmol/L 135-145 6877483976) K (test code = 4.0 mmol/L 3.5-5.0 0302645957) CL (test code = 109 mmol/L 98-108 H 5029308525) CO2 TOTAL (test code = 27 mmol/L 23-31 8925510168) AGAP (test code = 2-16 4739025356) BUN (test code = 16 mg/dL 7-23 8031516093) GLUCOSE (test code = 97 mg/dL 70-110 6397636250) CREATININE (test code = 1.00 mg/dL 0.60-1.25 6107415123) TOTAL BILI (test code = 1.0 mg/dL 0.1-1.3 3007492090) CALCIUM (test code = 8.7 mg/dL 8.6-10.6 2194716970) T PROTEIN (test code = 7.9 g/dL 6.3-8.2 5321955586) ALBUMIN (test code = 4.4 g/dL 3.5-5.0 1527884899) ALK PHOS (test code = 60 U/L 34-122 1491631390) ALTv (test code = 56 U/L 5-50 H 1742-6) AST(SGOT) (test code = 49 U/L 13-40 H 2323305094) eGFR (test code = mL/min/1.73m2 5500167449) KRYSTLE (test code = KRYSTLE) Association of [...] tests). Lab Interpretation Abnormal (test code = 96768-8) [facility] IrvingMagnesium [id number] 10:25:32 Test Item Value Reference Range Interpretation Comments MAGNESIUM (test code = 1985047998) 1.8 mg/dL 1.7-2.4 Lab Interpretation (test code = Normal 17563-9) [facility] IrvingPHOSPHORUS2022-02-17 10:25:12 Test Item Value Reference Range Interpretation Comments PHOSPHORUS (test code = 9094295383) 3.9 mg/dL 2.5-5.0 Lab Interpretation (test code = Normal 30815-2) [facility] IrvingCREATINE [id number] 10:24:52 Test Item Value Reference Range Interpretation Comments CK (test code = 4180473552) 215 U/L 33-194 H Lab Interpretation (test code = Abnormal 49341-0) [facility] Irving[facility] with [id number] 10:18:09 Test Item Value Reference Range Interpretation Comments WBC (test code = See_Comment [Automated 8842-2) message] The sy stem which generated this result transmitted reference range : 4.20 - 10.70 10*3/?L. The reference range was not used to interpret this result as normal/abnormal . RBC (test code = See_Comment [Automated 982-8) message] The sy stem which generated this [...] RDW-SD (test code = 41.3 fL 38.5-51.6 87409-9) RDW-CV (test code = 13.0 % 12.1-15.4 788-0) PLT (test code = See_Comment [Automated 777-3) message] The sy stem which generated this result transmitted reference range : 150 - 328 10*3/ ?L. The reference r andrea was not used to interpret this result as normal/abnormal . MPV (test code = 10.0 fL 9.8-13.0 91578-9) NRBC/100 WBC (test See_Comment [Automat ed code = 5053622724) message] The system which generated this result transmitted reference range : 0.0 - 10.0 /100 WBCs. The refer ence range was not u sed to interpret th is result as normal/abnormal . NRBC x10^3 (test code <0.01 See_Comment [Auto mated = 1685913797) message] The s ystem which generated this result transmitted reference range : 10*3/?L. The reference range was not used to interpret this result as normal/abnormal . GRAN MAT (NEUT) % 46.4 % (test code = 770-8) IMM GRAN % (test code 0.20 % = 2948664880) LYMPH % (test code = 44.0 % 736-9) MONO % (test code = 8.3 % 5905-5) EOS % (test code = 0.7 % 713-8) BASO % (test code = 0.4 % 706-2) GRAN MAT x10^3(ANC) 3.73 10*3/uL 1.99-6.95 (test code = 9819551740) IMM GRAN x10^3 (test <0.03 0.00-0.06 code = 9092837238) LYMPH x10^3 (test code 3.55 10*3/uL 1.09-3.23 H = 731-0) MONO x10^3 (test code 0.67 10*3/uL 0.36-1.02 = 742-7) EOS x10^3 (test code = 0.06 10*3/uL 0.06-0.53 711-2) BASO x10^3 (test code 0.03 10*3/uL 0.01-0.09 = 704-7) Lab Interpretation Abnormal (test code = 04912-2) [facility] IrvingPROTHROMBIN TIME / [id number] 10:18:09 Test Item Value Reference Range Interpretation [...] tions. Lab Interpretation (test Normal code = 96016-3) [facility] IrvingTROPONIN [id number] 07:43:50 Test Item Value Reference Interpretation Comments Range TROPONIN I (test 0.005 ng/mL See_Comment [Automated code = 7762975400) message] The system which generated this result [...] biotin. Lab Interpretation Normal (test code = 38416-3) [facility]. METABOLIC PANEL ([id number])2021-10-30 20:56:25 Test Item Value Reference Range Interpretation Comments NA (test code = 139 mmol/L 135-145 6665602440) K (test code = 4.8 mmol/L 3.5-5.0 1995556431) CL (test code = 105 mmol/L 98-108 9423649366) CO2 TOTAL (test code = 26 mmol/L 23-31 6481305585) AGAP (test code = 2-16 9196201090) BUN (test code = 18 mg/dL 7-23 6528282268) GLUCOSE (test code = 135 mg/dL 70-110 H 1192216977) CREATININE (test code = 0.98 mg/dL 0.60-1.25 8940346553) TOTAL BILI (test code = 0.8 mg/dL 0.1-1.3 9393294382) CALCIUM (test code = 10.0 mg/dL 8.6-10.6 8631324632) T PROTEIN (test code = 10.3 g/dL 6.3-8.2 H 1521603498) ALBUMIN (test code = 5.5 g/dL 3.5-5.0 H 3537395885) ALK PHOS (test code = 74 U/L 34-122 6675822309) ALTv (test code = 69 U/L 5-50 H 1742-6) AST(SGOT) (test code = 59 U/L 13-40 H 6829401210) eGFR (test code = mL/min/1.73m2 7309959101) KRYSTLE (test code = KRYSTLE) Association of [...] tests). Lab Interpretation Abnormal (test code = 87964-7) [facility] IrvingL[facility]ASE[facility]16 20:56:05 Test Item Value Reference Range Interpretation Comments LIPASE (test code = 2524590104) 70 U/L 0-220 Lab Interpretation (test code = Normal 24192-9) [facility] WITH [id number] 20:34:20 Test Item Value Reference Range Interpretation Comments WBC (test code = See_Comment H [Automated 6690-2) message] The sy stem which generated this result transmitted reference range : 4.20 - 10.70 10*3/?L. The reference range was not used to interpret this result as normal/abnormal . RBC (test code = See_Comment H [Automated 789-8) message] The sy stem which [...] RDW-SD (test code = 40.6 fL 38.5-51.6 26500-8) RDW-CV (test code = 12.8 % 12.1-15.4 788-0) PLT (test code = See_Comment [Automated 777-3) message] The sy stem which generated this result transmitted reference range : 150 - 328 10*3/ ?L. The reference r andrea was not used to interpret this result as normal/abnormal . MPV (test code = 9.2 fL 9.8-13.0 L 22836-2) NRBC/100 WBC (test See_Comment [Automat ed code = 6881429853) message] The system which generated this result transmitted reference range : 0.0 - 10.0 /100 WBCs. The refer ence range was not u sed to interpret th is result as normal/abnormal . NRBC x10^3 (test code <0.01 See_Comment [Auto mated = 2360714718) message] The s ystem which generated this result transmitted reference range : 10*3/?L. The reference range was not used to interpret this result as normal/abnormal . GRAN MAT (NEUT) % 67.1 % (test code = 770-8) IMM GRAN % (test code 0.40 % = 8560074173) LYMPH % (test code = 24.5 % 736-9) MONO % (test code = 7.6 % 5905-5) EOS % (test code = 0.1 % 713-8) BASO % (test code = 0.3 % 706-2) GRAN MAT x10^3(ANC) 7.34 10*3/uL 1.99-6.95 H (test code = 7773082983) IMM GRAN x10^3 (test 0.04 10*3/uL 0.00-0.06 code = 0391274896) LYMPH x10^3 (test code 2.67 10*3/uL 1.09-3.23 = 731-0) MONO x10^3 (test code 0.83 10*3/uL 0.36-1.02 = 742-7) EOS x10^3 (test code = <0.03 0.06-0.53 L 711-2) BASO x10^3 (test code 0.03 10*3/uL 0.01-0.09 = 704-7) Lab Interpretation Abnormal (test code = 42938-2) [facility] IrvingCREATINE [id number] 05:55:54 Test Item Value Reference Range Interpretation Comments CK (test code = 1934737963) 3682 U/L 33-194 H Lab Interpretation (test code = Abnormal 40424-9) [facility] IrvingCREATINE [id number] 05:55:54 Test Item Value Reference Range Interpretation Comments CK (test code = 4184280371) 3682 U/L 33-194 H Lab Interpretation (test code = Abnormal 00920-6) [facility] METABOLIC PANEL (NA, K, CL, CO2, GLUCOSE, BUN, CREATININE, CA)2021-05-24 05:02:27 Test Item Value Reference Range Interpretation Comments NA (test code = 137 mmol/L 135-145 7337812063) K (test code = 3.6 mmol/L 3.5-5.0 5461136784) CL (test code = 105 mmol/L 98-108 4681339749) CO2 TOTAL (test code = 23 mmol/L 23-31 3838367672) AGAP (test code = 2-16 5397050953) BUN (test code = 26 mg/dL 7-23 H 7342751263) GLUCOSE (test code = 95 mg/dL 70-110 6854855255) CREATININE (test code = 1.31 mg/dL 0.60-1.25 H 0484314848) CALCIUM (test code = 8.6 mg/dL 8.6-10.6 4536921282) eGFR (test code = mL/min/1.73m2 0160481850) KRYSTLE (test code = KRYSTLE) Association of [...] tests). Lab Interpretation Abnormal (test code = 17932-7) [facility] METABOLIC PANEL (NA, K, CL, CO2, GLUCOSE, BUN, CREATININE, CA)2021-05-24 05:02:27 Test Item Value Reference Range Interpretation Comments NA (test code = 137 mmol/L 135-145 6621589466) K (test code = 3.6 mmol/L 3.5-5.0 8533908785) CL (test code = 105 mmol/L 98-108 7920204515) CO2 TOTAL (test code = 23 mmol/L 23-31 1812582340) AGAP (test code = 2-16 0086762616) BUN (test code = 26 mg/dL 7-23 H 5761692264) GLUCOSE (test code = 95 mg/dL 70-110 8270769227) CREATININE (test code = 1.31 mg/dL 0.60-1.25 H 6731663831) CALCIUM (test code = 8.6 mg/dL 8.6-10.6 5966231816) eGFR (test code = mL/min/1.73m2 2075404434) KRYSTLE (test code = KRYSTLE) Association of [...] tests). Lab Interpretation Abnormal (test code = 91549-0) [facility] [id number] 02:56:10 Test Item Value Reference Interpretation Comments Range TROPONIN I (test 0.004 ng/mL See_Comment [Automated code = [id number]) message] The system which generated this result [...] biotin. Lab Interpretation Normal (test code = 95991-8) [facility] [id number] 02:56:10 Test Item Value Reference Interpretation Comments Range TROPONIN I (test 0.004 ng/mL See_Comment [Automated code = [id number]) message] The system which generated this result [...] biotin. Lab Interpretation Normal (test code = 53907-4) [facility]CREAT[facility] [id number] 02:41:54 Test Item Value Reference Range Interpretation Comments CK (test code = [id number]) 4607 U/L 33-194 H Lab Interpretation (test code = Abnormal 88692-0) [facility] [id number] 02:41:54 Test Item Value Reference Range Interpretation Comments CK (test code = 0053115059) 4607 U/L 33-194 H Lab Interpretation (test code = Abnormal 42793-4) [facility] [id number] 02:33:28 Test Item Value Reference Range Interpretation Comments NT-proBNP (test code 14 pg/mL See_Comment [Autom ated = 7305991870) message] The system which generated this result transmitted reference range : <=125. The reference range was not used to interpret this result as normal/abnormal . KRYSTLE (test code = KRYSTLE) Biotin has been reported to cause a negative bias, interpret results relative to patient's use of biotin. Lab Interpretation Normal (test code = 45579-4) [facility] [id number] 02:33:28 Test Item Value Reference Range Interpretation Comments NT-proBNP (test code 14 pg/mL See_Comment [Autom ated = 8567653166) message] The system which generated this result transmitted reference range : <=125. The reference range was not used to interpret this result as normal/abnormal . KRYSTLE (test code = KRYSTLE) Biotin has been reported to cause a negative bias, interpret results relative to patient's use of biotin. Lab Interpretation Normal (test code = 41454-7) [facility]21-[facility]-10 02:29:35 Test Item Value Reference Range Interpretation Comments APPEARANCE (test code = Clear Clear 7727869814) COLOR (test code = Yellow Yellow 1458187547) PH (test code = 4.8-8.0 9507887307) SP GRAVITY (test code = 1.003-1.030 3251843230) GLU U QUAL (test code = Normal Normal 3238160861) BLOOD (test code = Negative Negative 3790865205) KETONES (test code = Negative Negative 7466367052) PROTEIN (test code = Negative Negative 2887-8) UROBILIN (test code = 2.0 mg/dL Normal A 6217285535) BILIRUBIN (test code = Negative Negative 0177466855) NITRITE (test code = Negative Negative 7483907464) LEUK MO (test code = Negative Negative 6952510886) RBC/HPF (test code = See_Comment [Autom ated message] 4219765502) The system [employer] generated this result transmit delvin reference range : 0 - 3 HPF. The refe rence range was not u sed to interpret th is result as normal/abnormal . WBC/HPF (test code = See_Comment [Autom ated message] 2144175898) The system [employer] generated this result transmit delvin reference range : 0 - 5 HPF. The refe rence range was not u sed to interpret th is result as normal/abnormal . BACTERIA (test code = Negative Negative 7021578750) MUCOUS (test code = Slight Negative LPF A 7707898611) SQ EPITH (test code = <1 HPF 7150621743) Lab Interpretation (test Abnormal code = 41286-9) [facility] 02:29:35 Test Item Value Reference Range Interpretation Comments APPEARANCE (test code = Clear Clear 9175791601) COLOR (test code = Yellow Yellow 6582536032) PH (test code = 4.8-8.0 8875361717) SP GRAVITY (test code = 1.003-1.030 0986080501) GLU U QUAL (test code = Normal Normal 0351309669) BLOOD (test code = Negative Negative 6244645079) KETONES (test code = Negative Negative 9130952878) PROTEIN (test code = Negative Negative 2887-8) UROBILIN (test code = 2.0 mg/dL Normal A 0715194451) BILIRUBIN (test code = Negative Negative 1834602753) NITRITE (test code = Negative Negative 9638626796) LEUK MO (test code = Negative Negative 5188815501) RBC/HPF (test code = See_Comment [Autom ated message] 6962547572) The system [employer] generated this result transmit delvin reference range : 0 - 3 HPF. The refe rence range was not u sed to interpret th is result as normal/abnormal . WBC/HPF (test code = See_Comment [Autom ated message] 4386159840) The system [employer] generated this result transmit delvin reference range : 0 - 5 HPF. The refe rence range was not u sed to interpret th is result as normal/abnormal . BACTERIA (test code = Negative Negative 5420182171) MUCOUS (test code = Slight Negative LPF A 2403946415) SQ EPITH (test code = <1 HPF 9897169675) Lab Interpretation (test Abnormal code = 75423-3) [facility]. METABOLIC PANEL ([id number])2021-05-24 02:25:07 Test Item Value Reference Range Interpretation Comments NA (test code = 137 mmol/L 135-145 1884088320) K (test code = 3.1 mmol/L 3.5-5.0 L 7269807928) CL (test code = 102 mmol/L 98-108 8928312360) CO2 TOTAL (test code = 22 mmol/L 23-31 L 0767534497) AGAP (test code = 2-16 1553090385) BUN (test code = 28 mg/dL 7-23 H 8257181805) GLUCOSE (test code = 132 mg/dL 70-110 H 6695219598) CREATININE (test code = 1.77 mg/dL 0.60-1.25 H 9850239177) TOTAL BILI (test code = 1.0 mg/dL 0.1-1.8 8513238826) CALCIUM (test code = 9.4 mg/dL 8.6-10.6 2318534970) T PROTEIN (test code = 9.4 g/dL 6.3-8.2 H 7640900477) ALBUMIN (test code = 5.0 g/dL 3.5-5.0 3489493581) ALK PHOS (test code = 79 U/L 34-122 2801201531) ALTv (test code = 112 U/L 5-50 H 1742-6) AST(SGOT) (test code = 152 U/L 13-40 H 6591383060) eGFR (test code = mL/min/1.73m2 0539178540) KRYSTLE (test code = KRYSTLE) Association of [...] tests). Lab Interpretation Abnormal (test code = 03684-6) [facility]. METABOLIC PANEL (23942)2021-05-24 02:25:07 Test Item Value Reference Range Interpretation Comments NA (test code = 137 mmol/L 135-145 4871826138) K (test code = 3.1 mmol/L 3.5-5.0 L 4058502771) CL (test code = 102 mmol/L 98-108 2694421375) CO2 TOTAL (test code = 22 mmol/L 23-31 L 9691460587) AGAP (test code = 2-16 6675078341) BUN (test code = 28 mg/dL 7-23 H 8410571945) GLUCOSE (test code = 132 mg/dL 70-110 H 1957182702) CREATININE (test code = 1.77 mg/dL 0.60-1.25 H 1485623278) TOTAL BILI (test code = 1.0 mg/dL 0.1-1.3 3553938695) CALCIUM (test code = 9.4 mg/dL 8.6-10.6 2847666038) T PROTEIN (test code = 9.4 g/dL 6.3-8.2 H 2533568322) ALBUMIN (test code = 5.0 g/dL 3.5-5.0 7910222071) ALK PHOS (test code = 79 U/L 34-122 2105874877) ALTv (test code = 112 U/L 5-50 H 1742-6) AST(SGOT) (test code = 152 U/L 13-40 H 8805933611) eGFR (test code = mL/min/1.73m2 7957812308) KRYSTLE (test code = KRYSTLE) Association of [...] tests). Lab Interpretation Abnormal (test code = 23299-7) [facility] WITH [id number] 02:03:22 Test Item Value Reference Range Interpretation Comments WBC (test code = See_Comment [Automated 9858-2) message] The sy stem which generated this result transmitted reference range : 4.20 - 10.70 10*3/?L. The reference range was not used to interpret this result as normal/abnormal . RBC (test code = See_Comment [Automated 033-8) message] The sy stem which generated this [...] RDW-SD (test code = 39.7 fL 38.5-51.6 44763-0) RDW-CV (test code = 12.7 % 12.1-15.4 788-0) PLT (test code = See_Comment [Automated 777-3) message] The sy stem which generated this result transmitted reference range : 150 - 328 10*3/ ?L. The reference r andrea was not used to interpret this result as normal/abnormal . MPV (test code = 9.7 fL 9.8-13.0 L 40592-3) NRBC/100 WBC (test See_Comment [Automat ed code = 2257703432) message] The system which generated this result transmitted reference range : 0.0 - 10.0 /100 WBCs. The refer ence range was not u sed to interpret th is result as normal/abnormal . NRBC x10^3 (test code <0.01 See_Comment [Auto mated = 9468072249) message] The s ystem which generated this result transmitted reference range : 10*3/?L. The reference range was not used to interpret this result as normal/abnormal . GRAN MAT (NEUT) % 45.9 % (test code = 770-8) IMM GRAN % (test code 0.20 % = 4388118775) LYMPH % (test code = 41.7 % 736-9) MONO % (test code = 11.6 % 5905-5) EOS % (test code = 0.3 % 713-8) BASO % (test code = 0.3 % 706-2) GRAN MAT x10^3(ANC) 3.95 10*3/uL 1.99-6.95 (test code = 8443020722) IMM GRAN x10^3 (test <0.03 0.00-0.06 code = 5240246145) LYMPH x10^3 (test code 3.60 10*3/uL 1.09-3.23 H = 731-0) MONO x10^3 (test code 1.00 10*3/uL 0.36-1.02 = 742-7) EOS x10^3 (test code = 0.03 10*3/uL 0.06-0.53 L 711-2) BASO x10^3 (test code 0.03 10*3/uL 0.01-0.09 = 704-7) Lab Interpretation Abnormal (test code = 95311-5) [facility] WITH [id number] 02:03:22 Test Item Value Reference Range Interpretation [...] RDW-SD (test code = 39.7 fL 38.5-51.6 36871-3) RDW-CV (test code = 12.7 % 12.1-15.4 788-0) PLT (test code = See_Comment [Automated 777-3) message] The sy stem which generated this result transmitted reference range : 150 - 328 10*3/ ?L. The reference r andrea was not used to interpret this result as normal/abnormal . MPV (test code = 9.7 fL 9.8-13.0 L 23973-4) NRBC/100 WBC (test See_Comment [Automat ed code = 9057630901) message] The system which generated this result transmitted reference range : 0.0 - 10.0 /100 WBCs. The refer ence range was not u sed to interpret th is result as normal/abnormal . NRBC x10^3 (test code <0.01 See_Comment [Auto mated = 8475231074) message] The s ystem which generated this result transmitted reference range : 10*3/?L. The reference range was not used to interpret this result as normal/abnormal . GRAN MAT (NEUT) % 45.9 % (test code = 770-8) IMM GRAN % (test code 0.20 % = 1272625043) LYMPH % (test code = 41.7 % 736-9) MONO % (test code = 11.6 % 5905-5) EOS % (test code = 0.3 % 713-8) BASO % (test code = 0.3 % 706-2) GRAN MAT x10^3(ANC) 3.95 10*3/uL 1.99-6.95 (test code = 6341196178) IMM GRAN x10^3 (test <0.03 0.00-0.06 code = 1806129779) LYMPH x10^3 (test code 3.60 10*3/uL 1.09-3.23 H = 731-0) MONO x10^3 (test code 1.00 10*3/uL 0.36-1.02 = 742-7) EOS x10^3 (test code = 0.03 10*3/uL 0.06-0.53 L 711-2) BASO x10^3 (test code 0.03 10*3/uL 0.01-0.09 = 704-7) Lab Interpretation Abnormal (test code = 02126-8) [facility] NOW RAPID TESTING)2021-05-02 00:31:00 Test Item Value Reference Range Interpretation Comments SARS-CoV-2 Rapid ID NOW Not Detected Not Detected (test code = 15020-7) KRYSTLE (test code = KRYSTLE) ID NOW COVID-19 Assay is an isothermal nucleic acid amplification test intended for the qualitative detection of nucleic acid from SARS-CoV-2 viral RNA in nasopharyngeal ([employer]) specimens. It is used under Emergency Use [...] indicated. Lab Interpretation Normal (test code = 72591-0) [facility] STREP SCREEN FOR GROUP [id number] 00:25:45 Test Item Value Reference Range Interpretation Comments Streptococcus pyogenes (group A) Negative Negative antigen (test code = 57264-5) Lab Interpretation (test code = Normal 72113-3) [facility] (ID NOW RAPID TESTING)2021-04-02 01:41:42 Test Item Value Reference Range Interpretation Comments SARS-CoV-2 Rapid ID NOW Not Detected Not Detected (test code = 25089-4) KRYSTLE (test code = KRYSTLE) ID NOW COVID-19 Assay is an isothermal nucleic acid amplification test intended for the qualitative detection of nucleic acid from SARS-CoV-2 viral RNA in nasopharyngeal ([employer]) specimens. It is used under Emergency Use [...] indicated. Lab Interpretation Normal (test code = 90508-7) [facility] STREP SCREEN FOR GROUP [id number] 01:39:31 Test Item Value Reference Range Interpretation Comments Streptococcus pyogenes (group A) Negative Negative antigen (test code = 25170-2) Lab Interpretation (test code = Normal 75814-4) [facility]+ VW [id number] 02:41:03 Impression: No acute osseous abnormality. AFC: [id number] of Report Exam: XR WRIST 3+ VW LEFT, 03/17/2021 8:15 PM. Ordering Physician: NIKHIL BLANTON. History: Wrist pain, felt pop 6/29 . [...] VW LEFT, 03/17/2021 8:15 PM.Ordering Physician: NIKHIL BLANTON.History: Wrist pain, felt pop 03/12 .Technique: XR WRIST 3+ VW LEFTComparison: None.Findings: No acute fracture or dislocation. Chronic fracture deformities of the fifthmetacarpal and the distal radius. There are 3 intact K wires overlappingthe distal radius.No dislocation. Mild diffuse soft tissue edema.IMPRESSIONImpression: No acute osseous abnormality.AF: [id number] of Report [facility]:01 Test Item Value Reference Range Interpretation Comments APPEARANCE (test code = Clear Clear 8574012944) COLOR (test code = Yellow Yellow 1621925135) PH (test code = 4.8-8.0 5200460481) SP GRAVITY (test code = 1.003-1.030 7986864001) GLU U QUAL (test code = Normal Normal 2696209595) BLOOD (test code = Negative Negative 8285759676) KETONES (test code = Negative Negative 4553684342) PROTEIN (test code = Negative Negative 2887-8) UROBILIN (test code = 2.0 mg/dL Normal A 0305455416) BILIRUBIN (test code = Negative Negative 4095458236) NITRITE (test code = Negative Negative 5992959346) LEUK MO (test code = Negative Negative 8613802011) RBC/HPF (test code = See_Comment [Autom ated message] 9780522494) The system [employer] generated this result transmit delvin reference range : 0 - 3 HPF. The refe rence range was not u sed to interpret th is result as normal/abnormal . WBC/HPF (test code = See_Comment [Autom ated message] 3296096565) The system [employer] generated this result transmit delvin reference range : 0 - 5 HPF. The refe rence range was not u sed to interpret th is result as normal/abnormal . BACTERIA (test code = Few Negative A 4169292498) MUCOUS (test code = Slight Negative LPF A 3339384063) SQ EPITH (test code = <1 HPF 4569915236) Lab Interpretation (test Abnormal code = 08262-3) [facility]ST 1 [id number] 04:09:05Impression: Mild thickening of the sol of the central airways, possibly reflectinginfectious or inflammatory bronchitis. RL: 460 AFC: [id number] Ordering physician: DARNELL HSU Indication: Cough and congestion Comparison: None Find ings: Single AP view of the chest. The cardiopericardial silhouette iswithin normal limits. There ismild thickening of the sol of the centralairways. [...] airways, possibly reflectinginfectious or inflammatory bronchitis.RL: 460AFC: [id number] signed by Marisol Manzo MD, PhD at 11/14/2020 10:09 PM [facility] IrvingCOMPREHENSIVE METABOLIC [id number] 00:00:00 Test Item Value Reference Range Interpretation Comments GLUCOSE (test code = 2217) 101 MG/DL BUN (test code = 2208) 11 MG/DL CREATININE (test code = 2214) 0.88 MG/DL eGFR AMER. (test code 118 ML/MIN/1.73 = 12722) eGFR NON- AMER. (test 102 ML/MIN/1.73 code = 44018) CALC BUN/CREAT (test code = 13 RATIO 2235) SODIUM (test code = 2231) 143 MEQ/L POTASSIUM (test code = 2228) 4.5 MEQ/L CHLORIDE (test code = 2215) 106 MEQ/L CARBON DIOXIDE (test code = 23 MEQ/L 2206) CALCIUM (test code = 2209) 9.5 MG/DL PROTEIN, TOTAL (test code = 8.2 G/DL 2229) ALBUMIN (test code = 2201) 4.5 G/DL CALC GLOBULIN (test code = 3.7 G/DL 2240) CALC A/G RATIO (test code = 1.2 RATIO 2234) BILIRUBIN, TOTAL (test code = 0.6 MG/DL 2206) ALKALINE PHOSPHATASE (test 69 U/L code = 2204) AST (test code = 2218) 54 U/L ALT (test code = 2219) 88 U/L COMPREHENSIVE METABOLIC [id number] 00:00:00 Test Item Value Reference Range Interpretation Comments GLUCOSE (test code = 2217) 101 MG/DL BUN (test code = 2208) 11 MG/DL CREATININE (test code = 2214) 0.88 MG/DL eGFR AMER. (test code 118 ML/MIN/1.73 = 52918) eGFR NON- AMER. (test 102 ML/MIN/1.73 code = 07777) CALC BUN/CREAT (test code = 13 RATIO 2235) SODIUM (test code = 2231) 143 MEQ/L POTASSIUM (test code = 2228) 4.5 MEQ/L CHLORIDE (test code = 2215) 106 MEQ/L CARBON DIOXIDE (test code = 23 MEQ/L 220) CALCIUM (test code = 2209) 9.5 MG/DL PROTEIN, TOTAL (test code = 8.2 G/DL 2229) ALBUMIN (test code = 2201) 4.5 G/DL CALC GLOBULIN (test code = 3.7 G/DL 2240) CALC A/G RATIO (test code = 1.2 RATIO 2234) BILIRUBIN, TOTAL (test code = 0.6 MG/DL 7) ALKALINE PHOSPHATASE (test 69 U/L code = 2204) AST (test code = 2218) 54 U/L ALT (test code = 2219) 88 U/L N-TERMINAL [id number] 15:43:00 Test Item Value Reference Range Interpretation Comments NT-proBNP (test code <11 See_Comment [Autom ated = 3292355886) message] The system which generated this result transmitted reference range : <=125 pg/mL. Th e reference range was not used to interpret this result as normal/abnormal . KRYSTLE (test code = KRYSTLE) Biotin has been reported to cause a negative bias, interpret results relative to patient's use of biotin. Lab Interpretation Normal (test code = 39375-7) [facility] WITH [id number] 15:27:00 Test Item Value Reference Range Interpretation [...] (test code = 37.3 fL 38.5-51.6 L 15600-8) RDW-CV (test code = 11.9 % 12.1-15.4 L 788-0) PLT (test code = See_Comment [Automated 777-3) message] The sy stem which generated this result transmitted reference range : 150 - 328 10*3/ ?L. The reference r andrea was not used to interpret this result as normal/abnormal . MPV (test code = 9.7 fL 9.8-13 L 21517-7) NRBC/100 WBC (test See_Comment [Automat ed code = 2024990214) message] The system which generated this result transmitted reference range : 0.0 - 10.0 /100 WBCs. The refer ence range was not u sed to interpret th is result as normal/abnormal . NRBC x10^3 (test code <0.01 See_Comment [Auto mated = 0583169061) message] The s ystem which generated this result transmitted reference range : 10*3/?L. The reference range was not used to interpret this result as normal/abnormal . GRAN MAT (NEUT) % 29.2 % (test code = 770-8) IMM GRAN % (test code 0.20 % = 9836474446) LYMPH % (test code = 59.0 % 736-9) MONO % (test code = 10.1 % 5905-5) EOS % (test code = 1.1 % 713-8) BASO % (test code = 0.4 % 706-2) GRAN MAT x10^3(ANC) 1.57 10*3/uL 1.99-6.95 L (test code = 1461359273) IMM GRAN x10^3 (test <0.03 0-0.06 code = 3388433706) LYMPH x10^3 (test code 3.17 10*3/uL 1.09-3.23 = 731-0) MONO x10^3 (test code 0.54 10*3/uL 0.36-1.02 = 742-7) EOS x10^3 (test code = 0.06 10*3/uL 0.06-0.53 711-2) BASO x10^3 (test code <0.03 0.01-0.09 = 704-7) Lab Interpretation Abnormal (test code = 45550-9) [facility] [id number] 15:13:32 No acute cardiopulmonary process. Preliminary Report Dictated by Resident: Efraín Alcaraz MD., have reviewed this study and agree withthe above report.PROCEDURE: XR CHEST 1 VW CLINICAL INDICATION: dizzy TECHNIQUE: Frontal chest radiograph was obtained. COMPARISON: None FINDINGS: The lungs are clear. No pleural effusion or pneumothorax is seen. The heart is normal in size. No acute bony abnormality is noted. [facility], Radiant Results Inft - 09/30/2020 9:14 AM CSTPROCEDURE: XR CHEST 1 VWCLINICAL INDICATION: dizzy TECHNIQUE: Frontal chest radiograph was obtained.COMPARISON: NoneFINDINGS:The lungs are clear. No pleural effusion or pneumothorax is seen. The heart is normal in size.No acute bony abnormality is noted.IMPRESSIONNo acute cardiopulmonary process.Preliminary Report Dictated by Resident: Luiz Ruiz MD., have reviewed this study and agree withthe above report.[facility] [id number] 14:59:00 Test Item Value Reference Range Interpretation Comments TROPONIN I (test <0.012 See_Comment [Automated code = 9980424531) message] The system which generated this result [...] ? Lab Interpretation Normal (test code = 83218-7) [facility]. METABOLIC PANEL ([id number])2020-09-30 14:59:00 Test Item Value Reference Range Interpretation Comments NA (test code = 139 mmol/L 135-145 7209844289) K (test code = 3.8 mmol/L 3.5-5 9869545973) CL (test code = 103 mmol/L 98-108 3600554022) CO2 TOTAL (test code = 26 mmol/L 23-31 2145586337) AGAP (test code = 2-16 8983353874) BUN (test code = 11 mg/dL 7-23 7914997463) GLUCOSE (test code = 163 mg/dL 70-110 H 1667601704) CREATININE (test code = 0.85 mg/dL 0.6-1.25 4132902991) TOTAL BILI (test code = 0.6 mg/dL 0.1-1.8 4608911142) CALCIUM (test code = 9.0 mg/dL 8.6-10.6 1584341450) T PROTEIN (test code = 8.0 g/dL 6.3-8.2 4567743218) ALBUMIN (test code = 4.4 g/dL 3.5-5 4268555377) ALK PHOS (test code = 75 U/L 34-122 5657663267) ALTv (test code = 61 U/L 5-50 H 1742-6) AST(SGOT) (test code = 54 U/L 13-40 H 7902230620) eGFR Calculation mL/min/1.73m2 (Non-) (test code = 9068285878) eGFR Calculation mL/min/1.73m2 () (test code = 5526397321) KRYSTLE (test code = KRYSTLE) Association of [...] tests). Lab Interpretation Abnormal (test code = 95578-1) [facility] IrvingLIPASE, [id number] 14:59:00 Test Item Value Reference Range Interpretation Comments LIPASE (test code = 0448622020) 116 U/L 0-220 Lab Interpretation (test code = Normal 87903-3) [facility] IrvingTroponin [id number] 04:30:00 Test Item Value Reference Range Interpretation Comments TROPONIN I (test <0.012 See_Comment [Automated code = 2551774989) message] The system which generated this result [...] ? Lab Interpretation Normal (test code = 39106-3) [facility] IrvingComplete Metabolic [id number] 03:24:00 Test Item Value Reference Range Interpretation Comments NA (test code = 137 mmol/L 135-145 9617860586) K (test code = 4.7 mmol/L 3.5-5 6902570678) CL (test code = 101 mmol/L 98-108 0834674255) CO2 TOTAL (test code = 27 mmol/L 23-31 2335277695) AGAP (test code = 2-16 1583072891) BUN (test code = 16 mg/dL 7-23 0548046526) GLUCOSE (test code = 226 mg/dL 70-110 H 1038919126) CREATININE (test code = 1.13 mg/dL 0.6-1.25 2827743965) TOTAL BILI (test code = 0.7 mg/dL 0.1-1.7 3376685321) CALCIUM (test code = 9.3 mg/dL 8.6-10.6 5361835397) T PROTEIN (test code = 7.8 g/dL 6.3-8.2 0589939775) ALBUMIN (test code = 3.9 g/dL 3.5-5 3983783502) ALK PHOS (test code = 79 U/L 34-122 2260582901) ALTv (test code = 62 U/L 5-50 H 1742-6) AST(SGOT) (test code = 49 U/L 13-40 H 5896400874) eGFR Calculation mL/min/1.73m2 (Non-) (test code = 9315378724) eGFR Calculation mL/min/1.73m2 () (test code = 5440664967) KRYSTLE (test code = KRYSTLE) Association of [...] tests). Lab Interpretation Abnormal (test code = 12563-5) [facility] IrvingLipase, [id number] 03:23:00 Test Item Value Reference Range Interpretation Comments LIPASE (test code = 2907787378) 317 U/L 0-220 H Lab Interpretation (test code = Abnormal 40063-6) [facility] IrvingCB with [id number] 03:21:00 Test Item Value Reference Range Interpretation Comments WBC (test code = See_Comment [Automated 4096-2) message] The sy stem which generated this result transmitted reference range : 4.20 - 10.70 10*3/?L. The reference range was not used to interpret this result as normal/abnormal . RBC (test code = See_Comment [Automated 624-9) message] The sy stem which generated this [...] (test code = 37.9 fL 38.5-51.6 L 12222-3) RDW-CV (test code = 12.4 % 12.1-15.4 788-0) PLT (test code = See_Comment [Automated 777-3) message] The sy stem which generated this result transmitted reference range : 150 - 328 10*3/ ?L. The reference r andrea was not used to interpret this result as normal/abnormal . MPV (test code = 9.7 fL 9.8-13 L 15301-8) NRBC/100 WBC (test See_Comment [Automat ed code = 9801594455) message] The system which generated this result transmitted reference range : 0.0 - 10.0 /100 WBCs. The refer ence range was not u sed to interpret th is result as normal/abnormal . NRBC x10^3 (test code <0.01 See_Comment [Auto mated = 3855337415) message] The s ystem which generated this result transmitted reference range : 10*3/?L. The reference range was not used to interpret this result as normal/abnormal . GRAN MAT (NEUT) % 36.7 % (test code = 770-8) IMM GRAN % (test code 0.10 % = 9400783784) LYMPH % (test code = 50.9 % 736-9) MONO % (test code = 11.1 % 5905-5) EOS % (test code = 0.8 % 713-8) BASO % (test code = 0.4 % 706-2) GRAN MAT x10^3(ANC) 2.59 10*3/uL 1.99-6.95 (test code = 3763365748) IMM GRAN x10^3 (test <0.03 0-0.06 code = 2492935349) LYMPH x10^3 (test code 3.61 10*3/uL 1.09-3.23 H = 731-0) MONO x10^3 (test code 0.79 10*3/uL 0.36-1.02 = 742-7) EOS x10^3 (test code = 0.06 10*3/uL 0.06-0.53 711-2) BASO x10^3 (test code 0.03 10*3/uL 0.01-0.09 = 704-7) Lab Interpretation Abnormal (test code = 35156-7) [facility]"
[2022-10-20 14:44] LABS: Hematocrit 43.4 % (39.6-49.0); Lymphocytes % 31.6 % (15.3-44.8); MCV 86.5 fL (80-100); MPV 7.6 fL (7.6-11.3); RBC Red Blood Cell Count 5.01 M/uL (4.33-5.43)
--- NOTE | 2022-10-20 15:03 | RAD REPORT ---
EXAM DESCRIPTION: Tana Single View10/20/2022 2:47 pm CLINICAL HISTORY: Chest pain COMPARISON: 2021 FINDINGS: The lungs appear clear of acute infiltrate. The heart is normal size IMPRESSION: No acute abnormalities displayed
[2022-10-20 15:06] LABS: Troponin High Sensitivity 4.9 pg/mL (<58.9)
[2022-10-20 15:07] LABS: Potassium 3.7 mmol/L (3.5-5.1)
[2022-10-20] MEDS ORDERED: NA CHLORIDE 0.9% 1,000 ML ONE (15:29)
--- NOTE | 2022-10-20 16:32 | EDPHYS ---
Physician Documentation [facility] Name: Noah Putnam Age: 52 yrs Sex: Male : 1970 Arrival Date: 10/20/2022 Time: 13:36 Bed DIS1 Private MD: ED Physician Pj Chambers HPI: 10/20 14:41 This 52 yrs old Black Male presents to ER via Wheelchair with complaints of Passed Out bs3 Prior To Arrival, Chest Pain, Shortness Of Breath. 14:41 52-year-old male history of chronic pancreatitis, CKD, hypertension presents with an bs3 episode of syncope today while at work he notes that he woke up and just did not feel himself he went to work at approximately 5 AM and had been on his feet since then he at 1 point in time prior to arrival felt lightheaded sweaty and then reportedly passed out he was found slumped over but did not hit his head he had no previous syncopal headache chest pain or shortness of breath but he did feel short of breath after the incident he denies leg swelling or current shortness of breath he notes being admitted to an outside hospital for chronic pancreatitis recently no current fevers or chills no presyncopal abdominal pain or back pain he notes another episode of syncope in the past and was told that it was related to his vagal nerve. Historical: - Allergies: 13:49 Bee Venom; ss - Home Meds: 13:49 amlodipine 10 mg tab 1 tab once daily [Active]; lisinopril 10 mg Oral tab 1 tab once ss daily [Active]; - PMHx: 13:49 chronic kidney disease; Herniated disc; Hypertension; ss 14:04 chronic pancreatitis; ss - PSHx: 13:49 left arm surgery; ss - Immunization history:: Client reports receiving the 2nd dose of the Covid vaccine. - Social history:: Smoking status: Patient denies any tobacco usage or history of. ROS: 14:41 Constitutional: Negative for fever, chills bs3 14:41 All other systems are negative. Exam: 14:41 Constitutional: This is a well developed, well nourished patient who is awake, alert, bs3 and in no acute distress. Head/Face: Normocephalic, atraumatic. Eyes: Pupils equal round and reactive to light, extra-ocular motions intact. Lids and lashes normal. ENT: mmm, no posterior phyarngeal erythema Neck: Trachea midline, no thyromegaly, no neck stiffness Chest/axilla: Normal chest wall appearance and motion. Nontender with no deformity. No lesions are appreciated. Cardiovascular: Regular rate and rhythm with a normal S1 and S2. symmetric pulses in upper extremities Respiratory: Lungs have equal breath sounds bilaterally, clear to auscultation, no respiratory distress Abdomen/GI: Soft, non-tender, no rebound or guarding Skin: Warm, dry with normal turgor. Normal color with no rashes, no lesions, and no evidence of cellulitis. MS/ Extremity: Pulses equal, no cyanosis. Neurovascular intact. Full, normal range of motion. Neuro: Awake and alert, GCS 15, oriented to person, place, time, and situation. Cranial nerves II-XII grossly intact. Motor strength 5/5 in all extremities. Sensory grossly intact. Psych: Awake, alert, with orientation to person, place and time. Behavior, mood, and affect are within normal limits. 14:41 EKG normal sinus rhythm at [address] elevations or depressions QTc 416 normal intervals bs3 no WPW no Brugada no hocm as interpreted by myself Vital Signs: 13:47 BP 128 / 77; Pulse 64; Resp 16; Temp 98.2(TE); Pulse Ox 99% on R/A; Weight 122.47 kg; ss Height 6 ft. 4 in. (193.04 cm); Pain 4/10; 13:47 Body Mass Index 32.87 (122.47 kg, 193.04 cm) MDM: 14:01 Patient medically screened. 3 14:41 Differential Diagnosis: cardiac arrhythmia, cerebrovascular accident, emotional bs3 response, idiopathic syncope, vasovagal episode. Data reviewed: vital signs, nurses notes. ED course: Possible multifactorial given his general malaise will evaluate for electrolyte abnormality will do serial exams and reassess. 15:45 ED course: Labs normal on reassessment he is feeling well in no acute distress he did bs3 complain of some congestion he may be be developing a viral illness patient counseled at length return precautions given. 15:47 I considered the following discharge prescriptions or medication management in the 3 emergency department Medications were administered in the Emergency Department. See MAR. Independent interpretation of the following test(s) in the Emergency Department EKG: See my EKG interpretation above. ED course: Patient reassessed feeling much better however does note that he is coughing more counseled on viral syndrome return precautions given. 10/20 14:08 Order name: Basic Metabolic Panel; Complete Time: 15:45 bs3 10/20 14:08 Order name: CBC with Diff; Complete Time: 15:45 bs3 10/20 13:49 Order name: EKG; Complete Time: 13:49 snw 10/20 14:08 Order name: Troponin HS; Complete Time: 15:45 bs3 10/20 14:08 Order name: XRAY Chest (1 view); Complete Time: 15:45 bs3 10/20 13:49 Order name: EKG - Nurse/Tech; Complete Time: 14:05 snw 10/20 14:08 Order name: IV Saline Lock; Complete Time: 15:36 bs3 10/20 14:08 Order name: Labs collected and sent; Complete Time: 14:37 bs3 10/20 14:08 Order name: O2 Per Protocol; Complete Time: 15:36 bs3 10/20 14:08 Order name: O2 Sat Monitoring; Complete Time: 15:36 bs3 Administered Medications: 15:36 Drug: NS 0.9% 1000 ml Route: IV; Rate: 1000 ml; Site: left hand; 16:30 Follow up: IV Status: Completed infusion ss Disposition Summary: 10/20/22 16:32 Discharge Ordered Location: Home bs3 Problem: new bs3 Symptoms: are resolved bs3 Condition: Stable bs3 Diagnosis - Syncope Near bs3 - Viral infection, unspecified bs3 Followup: bs3 - With: Private Physician - When: - Reason: Re-evaluation by your physician Discharge Instructions: - Discharge Summary Sheet eh3 Forms: - Work release form eh3 - Medication Reconciliation Form bs3 - Thank You Letter bs3 - Antibiotic Education bs3 - Prescription Opioid Use bs3 Signatures: Dispatcher [employer] Donna Choudhury FNP-C FNP-Lawanda Nance RN RN ss Pj Chambers MD MD bs3
--- NOTE | 2022-10-20 16:32 | ER ---
Nurse's Notes [facility] Name: Noah Putnam Age: 52 yrs Sex: Male : 1970 Arrival Date: 10/20/2022 Time: 13:36 Bed DIS1 Private MD: Diagnosis: Syncope Near;Viral infection, unspecified Presentation: 10/20 13:47 Chief complaint: Patient states: "I feel like I'm dying. I started feeling funny in my ss sleep early this morning, like 3 or 4 in the morning. I noticed the whites of my eyes turned red. I've been feeling weak and my breathing was bothering me. I passed out at work and a co worker picked me up off of the ground.". Coronavirus screen: Client denies travel out of the [place] in the last 14 days. Ebola Screen: Patient denies exposure to infectious person. Patient denies travel to an Ebola-affected area in the 21 days before illness onset. Initial Sepsis Screen: Does the patient meet any 2 criteria? No. Patient's initial sepsis screen is negative. Does the patient have a suspected source of infection? No. Patient's initial sepsis screen is negative. Risk Assessment: Do you want to hurt yourself or someone else? Patient reports no desire to harm self or others. Onset of symptoms was October 20, 2022. 13:47 Method Of Arrival: Wheelchair ss 13:47 Acuity: BREEZY 3 ss Triage Assessment: 14:04 General: Appears in no apparent distress. comfortable, Behavior is calm, cooperative. ss Neuro: Level of Consciousness is awake, alert, obeys commands. Respiratory: Airway is patent Respiratory effort is even, unlabored, Respiratory pattern is regular, symmetrical. Historical: - Allergies: 13:49 Bee Venom; ss - Home Meds: 13:49 amlodipine 10 mg tab 1 tab once daily [Active]; lisinopril 10 mg Oral tab 1 tab once ss daily [Active]; - PMHx: 13:49 chronic kidney disease; Herniated disc; Hypertension; ss 14:04 chronic pancreatitis; ss - PSHx: 13:49 left arm surgery; ss - Immunization history:: Client reports receiving the 2nd dose of the Covid vaccine. - Social history:: Smoking status: Patient denies any tobacco usage or history of. Screenin:05 [facility] ED Fall Risk Assessment (Adult) History of falling in the last 3 months, ss including since admission Yes- physiologic fall (2 pts). Abuse screen: Denies threats or abuse. Denies injuries from another. Nutritional screening: No deficits noted. Tuberculosis screening: Never had TB. Assessment: 14:04 Reassessment: EKG completed, shown to Dr. Chambers. ss 14:05 General: Appears in no apparent distress. comfortable, Behavior is calm, cooperative, ss Reports fatigue for that began this morning while at work. Denies fever, feeling ill. Pain:. Neuro: Level of Consciousness is awake, alert, obeys commands, Oriented to person, place, time, situation, Speech is normal, Facial symmetry appears normal. Respiratory: Airway is patent Respiratory effort is even, unlabored, Respiratory pattern is regular, symmetrical. GI: Patient currently denies diarrhea, nausea, vomiting. Derm: Skin is pink, warm \\T\\ dry. normal. Musculoskeletal: Circulation, motion, and sensation intact. Range of motion: intact in all extremities, Swelling absent. Vital Signs: 13:47 BP 128 / 77; Pulse 64; Resp 16; Temp 98.2(TE); Pulse Ox 99% on R/A; Weight 122.47 kg; ss Height 6 ft. 4 in. (193.04 cm); Pain 4/10; 13:47 Body Mass Index 32.87 (122.47 kg, 193.04 cm) ss ED Course: 13:36 Patient arrived in ED. rg4 13:49 Triage completed. ss 13:49 Arm band placed on right wrist. ss 14:01 Pj Chambers MD is Attending Physician. bs3 14:05 Patient has correct armband on for positive identification. ss 14:37 Basic Metabolic Panel Sent. bc6 14:37 CBC with Diff Sent. bc6 14:37 Troponin HS Sent. bc6 14:46 XRAY Chest (1 view) In Process Unspecified. EDMS 14:49 Missed attempt(s): 20 gauge in right antecubital area. bc6 15:36 Lawanda Sampson, LINUS is Primary Nurse. ss 15:36 Inserted saline lock: 22 gauge in left hand, using aseptic technique. Patient maintains ss SpO2 saturation greater than 95% on room air. 16:50 No provider procedures requiring assistance completed. IV discontinued, intact, ss bleeding controlled, No redness/swelling at site. Pressure dressing applied. Administered Medications: 15:36 Drug: NS 0.9% 1000 ml Route: IV; Rate: 1000 ml; Site: left hand; 16:30 Follow up: IV Status: Completed infusion Medication: 14:05 VIS not applicable for this client. Outcome: 16:32 Discharge ordered by bs3 16:50 Discharged to home 16:50 Condition: good 16:50 Discharge instructions given to patient, Instructed on discharge instructions, follow up and referral plans. medication usage, Demonstrated understanding of instructions, follow-up care, medications. 16:51 Patient left the ED. Signatures: Dispatcher [employer] EDMS Lawanda Smapson RN RN Gabriella Marshall rg4 Pj Chambers MD MD bs3 Meera Douglas bc6
[2022-10-20 17:14] VITALS: BP 128/77; TEMP 98.2; O2SAT 99
== END 2022-10-20 16:51 | disposition home or self-care (01) ==
LOC: ER 13:32
DX: R55 Syncope and collapse (principal); B34.9 Viral infection, unspecified; I12.9 Hypertensive chronic kidney disease with stage 1 through stage 4 chronic kidney disease, or unspecified chronic kidney disease; N18.9 Chronic kidney disease, unspecified; Z91.030 Bee allergy status
CPT/HCPCS: 93005; 85025; 80048; 36415; 84484; 71045; 96360; 99284; J7030

== ENCOUNTER 2023-07-20 04:36 | Emergency (ER) | payer SELFPAY ==
--- OUTSIDE RECORDS SUMMARY | 2023-07-20 04:45 | XMS REPORT | Continuity of Care Document ---
:1970 Author Organization [facility] t Address [address] [place] [place] [address] Care Team Providers Name Role Phone Deidra Emily WALDROP Primary Care Physician [phone] Mayuri James Attending Clinician Unavailable NANCY BRENNAN Attending Clinician Unavailable STEPHIE DUNCAN Attending Clinician Unavailable GRETEL HIDALGO Attending Clinician Unavailable Doctor Unassigned, [address] Attending Clinician Unavailable KIARA RICHARDSON Attending Clinician Unavailable MIRIAM LUDWIG Attending Clinician Unavailable MIRIAM LUDWIG Attending Clinician Unavailable Haresh Santamaria MD Attending Clinician [phone] Kristian Gleason Attending Clinician Unavailable Dieudonne Vallejo Attending Clinician Unavailable LAB56 Attending Clinician Unavailable MANFRED LANE Attending Clinician Unavailable AYDIN MATOS Attending Clinician Unavailable Aydin Matos MD Attending Clinician NATALI ALEXANDER Attending Clinician Unavailable Abraham Orantes MD Attending Clinician Natali Alexander DO Attending Clinician ADELAIDE GOOWDIN Attending Clinician Unavailable Christa ALLEN, Adelaide Attending Clinician HEMALATHA MORA Attending Clinician Unavailable Morgan TELEVISION SCRIPT WRITER, Hemalatha Attending Clinician JESSICA GONZALES Attending Clinician Unavailable Christian PAC, Jessica S Attending Clinician SOHAM CLARKE Attending Clinician Unavailable Tricia ALLEN, Soham Sethi Attending Clinician Azam FRENCHP, Lion Attending Clinician MARK HERNANDEZ Attending Clinician Unavailable Mark Hernandez MD Attending Clinician ABRAHAM ORANTES Attending Clinician Unavailable Trevor TAYLOR Attending Clinician Unavailable Trevor Worley Attending Clinician Ellen Carroll RN Attending Clinician EMELIA GALLEGO Attending Clinician Unavailable Coco WALDROP, Madison Tripathi Attending Clinician Emelia Gallego DO Attending Clinician Felipe Valdivia Attending Clinician FELIPE ORTEGA Attending Clinician Unavailable Elliot HICKS, Gabriella Richard Attending Clinician Nurse, Adc Pob Immunization Attending Clinician Unavailable David Clarke DO Attending Clinician Nikhil Trevizo Attending Clinician NIKHIL BLANTON Attending Clinician Unavailable Pcp, Patient Does Not Have A Attending Clinician [phone] Isabela BARRIGA, Mirna Topete Attending Clinician Unavailable Darnell Bustillo Attending Clinician DARNELL HSU Attending Clinician Unavailable Jessy Siddiqui DO Attending Clinician STEPHIE DUNCAN Admitting Clinician Unavailable HARESH SANTAMARIA Admitting Clinician Unavailable Dieudonne Vallejo Admitting Clinician Unavailable MANFRED LANE Admitting Clinician Unavailable NATALI ALEXANDER Admitting Clinician Unavailable ADELAIDE GOODWIN Admitting Clinician Unavailable HEMALATHA MORA Admitting Clinician Unavailable SOHAM CLARKE Admitting Clinician Unavailable LION RODRIGUEZ Admitting Clinician Unavailable MARK HERNANDEZ Admitting Clinician Unavailable Mark Hernandez MD Admitting Clinician ABRAHAM ORANTES Admitting Clinician Unavailable Trevor TAYLOR Admitting Clinician Unavailable EMELIA GALLEGO Admitting Clinician Unavailable Emelia Gallego DO Admitting Clinician DARNELL HSU Admitting Clinician Unavailable Payers Payer Name Policy Type Policy Number Effective Date Expiration Date S remberto AETNA MP CVS 9 [id number] 2022 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 Problems Condition Condition Condition Status Onset Resolution Last Treating Co mments Source Name Details Category Date Date Treatment Clinician Date Epigastric Epigastric Disease Active U nivers pain pain 1-28 ity of 00:00: [address] SBO (small SBO (small Disease Active U nivers bowel bowel 2-16 [place] obstruct[place] n[place] [address] [place] [address] Obesity Obesity Disease Active Univers (BMI (BMI 2-16 ity of 30-39.9) 30-39.9) 00:00: [address] No known No known Disease Unive rs active active ity of problems problems [facility] [id number] Bladder Problem Commo n mass [facility] [id number] Microscopi Problem Co mmon c Spirit hematuria [facility] [id number] Suprapubic Problem Co mmon pain [facility] [id number] Lower Problem Common urinary Spirit tract - [facility] symptoms [facility] Allergies, Adverse Reactions, Alerts Allergy Allergy Status Severity Reaction(s) Onset Inactive Treating Comm ents Source Name Type Date Date Clinician BEE DRUG Active Swelling Univers VENOM INGREDI 216 ity of PROTEIN 00:00: [place] (HONEY 00 Medical BEE) Branch Bee Propensi Active Swelling Luz Maria Venom ty to 16 Seybold adverse 00:00: - reaction 00 Externa s l No Known DA Active U [facility] Allergie 04-19 Corpus s 00:00: [address] NO KNOWN Drug Active Univers ALLERGIE Class ity of S [facility] Social History Social Habit Start Date Stop Date Quantity Comments Source Gender identity Luz Maria faith - External Sexual orientation Luz Maria Ng - External History of tobacco Cigarette Smoker Luz Maria Ng - use External Alcohol intake 2023-07-08 2023-07-08 Lifetime Luz Maria Garg bold - 00:00:00 00:00:00 non-drinker External (finding) History of Social 2023-06-01 2023-06-01 Luz Maria Ng - function 00:00:00 00:00:00 External Exposure to 2022-11-28 2022-12-08 Not sure University SARS-CoV-2 (event) 00:00:00 23:50:00 [facility] Tobacco use and 2022-10-11 2022-10-11 Smokeless Universit y of exposure 00:00:00 00:00:00 tobacco non-user [facility] Sex Ass[birth year] At [birth year] Luz Maria bentleyold - 00:00:00 00:00:00 External Smoking Status Start Date Stop Date Source Occasional tobacco 2023-05-20 00:00:00 Luz Maria bentleyfarooq - smoker External Never smoked tobacco [facility] Former Smoker 2022-07-11 00:00:00 2022-07-11 Common Spiri t [facility]00 [facility] nter Unknown if ever smoked [facility] Medications Ordered Filled Start Stop Current Ordering Indication Dosage Frequency Signature Comments Components Source Medication Medication Date Date Medication? Clinician (SIG) Name Name ketorolac 2022-09- No 15mg 15 mg, Unive rs (TORADOL) 007-12 Slow IV ity of injection 03:15: 02:32 Push, [place] 15 mg 00 :00 ONCE, 1 Medical dose, On Branch 07/11/23 at 2215, Routine methocarbam 2022-09- No 1000mg 1,000 mg, Univers oL 007-12 Oral, ity of (ROBAXIN) 02:30: 02:32 ONCE, 1 [place] tablet 00 :00 dose, On Medical 1,000 mg Sat Branch 07/11/23 at 2130, VASILIY famotidine 2022-09- No 20mg 20 mg, Univ ers (PEPCID 07-12 Slow IV ity of (PF)) 02:30: 02:32 Push, [place] injection 00 :00 ONCE, 1 Medical 20 mg dose, On Branch 07/11/23 at 2130, VASILIY aspirin 2022-09- No 324mg 324 mg, Unive rs chewable 07-12 Oral, ity of tablet 324 02:15: 02:31 ONCE, 1 [place] mg 00 :00 dose, On Medical Sat Branch 07/11/23 at 2115, STAT HYDROcodone 2022-09- Yes [id number] 1{tbl} Take 1 U nivers -acetaminop 0-28 - tablet by it y of hen 5-325 00:00: 04:59 mouth [place] mg tablet 00 :00 every 4 Medical (four) Branch hours as needed for Pain (scale 7-10) for up to 3 days. Indication s: acute pain omeprazole 2022-09 Yes [id number] 40mg Take 1 U nivers 40 mg 0-27 capsule by ity of capsule 00:00: mouth in [place] 00 the Medical morning Branch and 1 capsule in the evening. peg-electro 2022-09 Yes [id number] Take as Univers lyte soln 0-27 directed ity of 236-22.74-6 00:00: [place] .74 -5.86 00 colonoscop Medi amy gram y Branch solution omeprazole 2022-09 Yes [id number] 40mg Take 1 U nivers 40 mg 0-27 capsule by ity of capsule 00:00: mouth in [place] 00 the Medical morning Branch and 1 capsule in the evening. peg-electro 2022-09 Yes [id number] Take as Univers lyte soln 0-27 directed ity of 236-22.74-6 00:00: [place] .74 -5.86 00 colonoscop [facility] y Branch solution omeprazole 2022-09 Yes [id number] 40mg Take 1 U nivers 40 mg 0-27 capsule by ity of capsule 00:00: mouth in [place] 00 the Medical morning Branch and 1 capsule in the evening. peg-electro 2022-09 Yes [id number] Take as Univers lyte soln 0-27 directed ity of 236-22.74-6 00:00: [place] .74 -5.86 00 colonoscop [facility] y Branch solution omeprazole 2022-09 Yes [id number] 40mg Take 1 U nivers 40 mg 0-27 capsule by ity of capsule 00:00: mouth in [place] 00 the Medical morning Branch and 1 capsule in the evening. peg-electro 2022-09 Yes [id number] Take as Univers lyte soln 0-27 directed ity of 236-22.74-6 00:00: [place] .74 -5.86 00 colonoscop [facility] y Branch solution omeprazole 2022-09 Yes [id number] 40mg Take 1 U nivers 40 mg 0-27 capsule by ity of capsule 00:00: mouth in [place] 00 the Medical morning Branch and 1 capsule in the evening. peg-electro 2022-09 Yes [id number] Take as Univers lyte soln 0-27 directed ity of 236-22.74-6 00:00: [place] .74 -5.86 00 colonoscop [facility] y Branch solution Lisinopril 2022-09 Yes 10mg Take 1 Kelse y 10 MG oral 0-25 tablet (10 Sey bold Tablet 08:45: mg total) - 58 by mouth Externa daily. l Tamsulosin 2022-09 Yes .4mg Take 1 Kelse y HCl 0.4 MG 0-25 capsule Seybol d oral 00:00: (0.4 mg - Capsule 00 total) by Externa mouth l every night at bedtime. morpHINE (4 2022-09- No 4mg 4 mg, Slow Univers mg/mL) 0-20 10-20 IV Push, ity of injection 4 13:45: 12:49 ONCE, 1 [place] mg 00 :00 dose, On Medical Fri Branch 07/03/23 at 0845, VASILIY famotidine 2022-09- No 20mg 20 mg, Univ ers (PEPCID 0-20 10-20 Slow IV ity of (PF)) 13:00: 12:49 Push, [place] injection 00 :00 ONCE, 1 Medical 20 mg dose, On Branch 07/03/23 at 0800, VASILIY iohexol 2022-09- No [id number] 80mL 80 mL, Uni vers (OMNIPAQUE 0-20 10-20 Intravenou it y of 350 10:40: 10:40 s, ONCE, 1 [place] BULK-100 00 :00 dose, On Medical mL) Fri Branch injection 07/03/23 80 mL at 0545, Routine ondansetron 2022-09- No 4mg 4 mg, Slow Univers (ZOFRAN 0-20 10-20 IV Push, ity of (PF)) 10:15: 10:20 ONCE, 1 [place] injection 4 00 :00 dose, On Medi amy mg Fri Branch 07/03/23 at 0515, VASILIY morpHINE (4 2022-09- No 4mg 4 mg, Slow Univers mg/mL) 0-20 10-20 IV Push, ity of injection 4 10:15: 10:20 ONCE, 1 [place] mg 00 :00 dose, On Medical Fri Branch 07/03/23 at 0515, STAT Pantoprazol 2022-09 Yes 20mg Take 1 Kelsi ey e Sodium 20 0-20 tablet (20 Se ybold MG oral 00:00: mg total) - Tablet 00 by mouth Externa Delayed every l Response morning. HYDROcodone 2022-09 Yes TAKE 1 Kelsi ey -Acetaminop 0-20 TABLET BY Britany mac (NORCO) 00:00: MOUTH - 5-325 MG 00 EVERY 4 Externa oral Tablet HOURS l NEEDED FOR PAIN (SCALE 4-6) HYDROcodone 2022-09 Yes [id number] 1{tbl} Take 1 Un veronica -acetaminop 0-20 tablet by ity rosalee mac 5-325 00:00: mouth [place] mg tablet 00 every 4 Medical (four) Branch hours as needed for Pain (scale 4-6) for up to 10 doses. Indication s: acute pain famotidine 2022-09 Yes [id number] 20mg Take 1 Univers (PEPCID) 20 0-20 tablet by ity of mg tablet 00:00: [place] 00 the Medical morning Branch and 1 tablet in the evening. pantoprazol 2022-09 Yes [id number] 20mg Take 1 Univers e 0-20 tablet by ity of (PROTONIX) 00:00: mouth in [place] 20 mg EC 00 the Medical tablet morning. Branch HYDROcodone 2022-09 Yes [id number] 1{tbl} Take 1 Un veronica -acetaminop 0-20 tablet by ity of hen 5-325 00:00: mouth [place] mg tablet 00 every 4 Medical (four) Branch hours as needed for Pain (scale 4-6) for up to 10 doses. Indication s: acute pain HYDROcodone 2022-09 Yes [id number] 1{tbl} Take 1 Un veronica -acetaminop 0-20 tablet by ity of hen 5-325 00:00: mouth [place] mg tablet 00 every 4 Medical (four) Branch hours as needed for Pain (scale 4-6) for up to 10 doses. Indication s: acute pain HYDROcodone 2022-09 Yes [id number] 1{tbl} Take 1 Un veronica -acetaminop 0-20 tablet by ity of hen 5-325 00:00: mouth [place] mg tablet 00 every 4 Medical (four) Branch hours as needed for Pain (scale 4-6) for up to 10 doses. Indication s: acute pain HYDROcodone 2022-09 Yes [id number] 1{tbl} Take 1 Un veronica -acetaminop 0-20 tablet by ity of hen 5-325 00:00: mouth [place] mg tablet 00 every 4 Medical (four) Branch hours as needed for Pain (scale 4-6) for up to 10 doses. Indication s: acute pain HYDROcodone 2022-09 Yes [id number] 1{tbl} Take 1 Un veronica -acetaminop 0-20 tablet by ity of hen 5-325 00:00: mouth [place] mg tablet 00 every 4 Medical (four) Branch hours as needed for Pain (scale 4-6) for up to 10 doses. Indication s: acute pain famotidine 2022-09 No [id number] 20mg Take 1 Univers (PEPCID) 20 0-20 10-27 tablet by it y of mg tablet 00:00: 00:00 mouth in [place] 00 :00 the Medical morning Branch and 1 tablet in the evening. pantoprazol 2022-09- No [id number] 20mg Take 1 Univers e 0-20 10-27 tablet by ity of (PROTONIX) 00:00: 00:00 mouth in [place] 20 mg EC 00 :00 the Medical tablet morning. Branch famotidine 2022-09- No [id number] 20mg Take 1 Univers (PEPCID) 20 0-20 10-27 tablet by it y of mg tablet 00:00: 00:00 mouth in [place] 00 :00 the Medical morning Branch and 1 tablet in the evening. pantoprazol 2022-09- No [id number] 20mg Take 1 Univers e 0-20 10-27 tablet by ity of (PROTONIX) 00:00: 00:00 mouth in [place] 20 mg EC 00 :00 the Medical tablet morning. Branch famotidine 2022-09- No [id number] 20mg Take 1 Univers (PEPCID) 20 0-20 10-27 tablet by it y of mg tablet 00:00: 00:00 mouth in [place] 00 :00 the Medical morning Branch and 1 tablet in the evening. pantoprazol 2022-09- No [id number] 20mg Take 1 Univers e 0-20 10-27 tablet by ity of (PROTONIX) 00:00: 00:00 mouth in [place] 20 mg EC 00 :00 the Medical tablet morning. Branch Lisinopril 2022-0 Yes 10mg Take 1 Kelse y 10 MG oral 9-06 tablet (10 Sey bold Tablet 15:08: mg total) - 12 by mouth Externa daily. l Tamsulosin 3-0 Yes .4mg Take 1 Kelse y HCl 0.4 MG 9-06 capsule Seybol d oral 00:00: (0.4 mg - Capsule 00 total) by Externa mouth l every night at bedtime. Tamsulosin 3-0 3- No .4mg Take 1 Kelsi ey HCl 0.4 MG 9-06 10-25 capsule Seybo ld oral 00:00: 00:00 (0.4 mg - Capsule 00 :00 total) by Externa mouth l every night at bedtime. iopamidol 2022- No [id number] 80mL 80 mL, Univers (ISOVUE 05-08 Intravenou ity o f 370-500 mL) 03:15: 02:12 s, ONCE, 1 [place] injection 00 :00 dose, On Medica l 80 mL [place] Branch 05/07/23 at 2215, Routine morpHINE (4 2022- No 4mg 4 mg, Slow Univers mg/mL) 05-08 IV Push, ity of injection 4 01:00: 01:38 ONCE, 1 [place] mg 00 :00 dose, On Medical [place] Branch 05/07/23 at 1999, VASILIY NaCl 0.9% 2022- No 1000mL at 999 Uni vers (NS) bolus 05-08 mL/hr, ity of infusion 01:00: 04:22 1,000 mL, [place] 1,000 mL 00 :00 IV Medical Infusion, Branch ONCE, 1 dose, On [place] 05/07/23 at 1999, VASILIY NaCl 0.9% 2022- No 1000mL at 999 Uni vers (NS) bolus 05-02 mL/hr, ity of infusion 05:15: 05:29 1,000 mL, [place] 1,000 mL 00 :00 IV Medical Infusion, Branch ONCE, 1 dose, On 05/02/23 at 0015, STAT famotidine No 20mg 20 mg, Univ ers (PEPCID 05-02 Slow IV ity of (PF)) 04:15: 04:21 Push, [place] injection 00 :00 ONCE, 1 Medical 20 mg dose, On Branch 05/01/23 at 2315, VASILIY maalox:diph 2022- No 15mL 15 mL, Uni vers enhydrAMINE 05-02 Oral, ity of :lidocaine 04:15: 04:21 ONCE, 1 [place] 2 % viscous 00 :00 dose, On Medi amy 1:1:1 Fri Branch ([facility]OUT 05/01/23 at [facility]) 2315, VASILIY oral suspension 15 mL ondansetron 0 2022- No 4mg 4 mg, Slow Univers (ZOFRAN 05-02 IV Push, ity of (PF)) 04:15: 03:18 ONCE, 1 [place] injection 4 00 :00 dose, On Medi amy mg Fri Branch 05/01/23 at 2315, VASILIY NaCl 0.9% 0 2022- No 1000mL at 999 Uni vers (NS) bolus 05-02 mL/hr, ity of infusion 04:15: 04:15 1,000 mL, [place] 1,000 mL 00 :00 IV Medical Infusion, Branch ONCE, 1 dose, On 05/01/23 at 2315, STAT metoclopram 3-0 Yes [id number] 10mg Take 1 Univers jerilyn HCl 10 8-18 tablet by ity of mg tablet 00:00: mouth [place] 00 every 6 Medical (six) Branch hours. pantoprazol 2023-0 Yes [id number] 20mg Take 1 Univers e 8-18 tablet by ity of (PROTONIX) 00:00: mouth in [place] 20 mg EC 00 the Medical tablet morning. Branch metoclopram 3-0 Yes [id number] 10mg Take 1 Univers jerilyn HCl 10 8-18 tablet by ity of mg tablet 00:00: mouth [place] 00 every 6 Medical (six) Branch hours. pantoprazol 2023-0 Yes [id number] 20mg Take 1 Univers e 8-18 tablet by ity of (PROTONIX) 00:00: mouth in [place] 20 mg EC 00 the Medical tablet morning. Branch metoclopram 2023-0 Yes [id number] 10mg Take 1 Univers jerilyn HCl 10 8-18 tablet by ity of mg tablet 00:00: mouth [place] 00 every 6 Medical (six) Branch hours. metoclopram 2023-0 Yes [id number] 10mg Take 1 Univers jerilyn HCl 10 8-18 tablet by ity of mg tablet 00:00: mouth [place] 00 every 6 Medical (six) Branch hours. metoclopram 2023-0 Yes [id number] 10mg Take 1 Univers jerilyn HCl 10 8-18 tablet by ity of mg tablet 00:00: mouth [place] 00 every 6 Medical (six) Branch hours. metoclopram 2023-0 Yes [id number] 10mg Take 1 Univers jerilyn HCl 10 8-18 tablet by ity of mg tablet 00:00: mouth [place] 00 every 6 Medical (six) Branch hours. metoclopram 2022-0 Yes [id number] 10mg Take 1 Univers jerilyn HCl 10 8-18 tablet by ity of mg tablet 00:00: mouth [place] 00 every 6 Medical (six) Branch hours. metoclopram 3-0 Yes [id number] 10mg Take 1 Univers jerilyn HCl 10 8-18 tablet by ity of mg tablet 00:00: mouth [place] 00 every 6 Medical (six) Branch hours. pantoprazol 2022-0 2022- No [id number] 20mg Take 1 Univers e 8-18 10-20 tablet by ity of (PROTONIX) 00:00: 00:00 mouth in [place] 20 mg EC 00 :00 the Medical tablet morning. Branch iopamidol 2022- No [id number] 70mL 70 mL, U nivers (ISOVUE 04-22 Intravenou ity o f 370-500 mL) 16:21: 16:21 s, ONCE, 1 [place] injection 00 :00 dose, On Medica l [address] [facility] 04/22/23 Branch at 1145, Routine haloperidol 2022- No 2.5mg 2.5 mg, U nivers lactate 04-22 Intravenou ity o f (HALDOL) 16:00: 16:01 s, ONCE, 1 [place] injection 00 :00 dose, On Medica l 2.5 mg Thu04/22/23 Branch at 1100, STAT NaCl 0.9% 2022- No 500mL at 999 Univ ers (NS) bolus 04-22 mL/hr, 500 it y of infusion 14:45: 15:30 mL, IV [place] 500 mL 00 :00 Infusion, Medical ONCE, 1 Branch dose, On Thu04/22/23 at 0945, STAT maalox:diph 2022- No 15mL 15 mL, Uni vers enhydrAMINE 04-22 Oral, ity of :lidocaine 13:00: 12:55 ONCE, 1 [place] 2 % viscous 00 :00 dose, On Medi amy 1:1:1 Thu04/22/23 Branch (FIRST-MOUT at 0800, [facility]) Routine oral suspension 15 mL NaCl 0.9% 2022-0 Yes 1000mL at 999 Univ ers (NS) IV 8-09 mL/hr, ity of infusion 12:45: Intravenou [place] 1,000 mL 00 s, Medical CONTINUOUS Branch , Starting on Thu04/22/23 at 0745, Until Discontinu ed, Routine NaCl 0.9% 3-0 2022- No 1000mL at 999 Uni vers (NS) bolus 04-22- mL/hr, ity of infusion 10:30: 11:30 1,000 mL, [place] 1,000 mL 00 :00 IV Medical Infusion, Branch ONCE, 1 dose, On Thu04/22/23 at 0530, STAT ketorolac 2022-0 2022- No 30mg 30 mg, Unive rs (TORADOL) 04-22- Slow IV ity of injection 10:30: 09:21 Push, [place] 30 mg 00 :00 ONCE, 1 Medical dose, On Branch Thu04/22/23 at 0530, Routine diphenhydrA 2022-0 2022- No 25mg 25 mg, Uni vers MINE 04-22- Slow IV ity of (BENADRYL) 09:30: 09:21 Push, [place] injection 00 :00 ONCE, 1 Medical 25 mg dose, On Branch Thu04/22/23 at 0430, STAT metoclopram 2022-0 2022- No 10mg 10 mg, Uni vers jerilyn HCl 04-22 Slow IV ity of (REGLAN) 09:30: 09:21 Push, [place] injection 00 :00 ONCE, 1 Medical 10 mg dose, On Branch Thu04/22/23 at 0430, VASILIY NaCl 0.9% 2022-0 202- No 1000mL at 999 Uni vers (NS) bolus 04-22- mL/hr, ity of infusion 09:15: 10:28 1,000 mL, [place] 1,000 mL 00 :00 IV Medical Infusion, Branch ONCE, 1 dose, On Thu04/22/23 at 0415, STAT Promethazin 3-0 Yes 25mg Q.25D Take 1 Manoj sey e HCl 04-22 tablet (25 Seybold (PHENERGAN) 00:00: mg total) - 25 MG oral 00 by mouth Exter na Tablet every 6 l hours as needed. Tramadol 2022-0 Yes 50mg Q.25D Take 1 Luz Maria HCl 8-09 tablet (50 Seybold (ULTRAM) 50 00:00: mg total) - MG oral 00 by mouth Externa Tablet every 6 l hours as needed FOR PAIN. Ondansetron 2022-0 Yes TAKE 1 Kelsi ey HCl 4 MG 8-09 TABLET BY Seybol d oral Tablet 00:00: MOUTH - 00 EVERY 8 Externa HOURS l NEEDED FOR NAUSEA AND VOMITING Promethazin 2022-0 Yes 25mg Q.25D Take 1 Manoj sey e HCl 8-09 tablet (25 Seybold (PHENERGAN) 00:00: mg total) - 25 MG oral 00 by mouth Exter na Tablet every 6 l hours as needed. Tramadol 2022-0 Yes 50mg Q.25D Take 1 Luz Maria HCl 8-09 tablet (50 Seybold (ULTRAM) 50 00:00: mg total) - MG oral 00 by mouth Externa Tablet every 6 l hours as needed FOR PAIN. Ondansetron 0 Yes TAKE 1 Kelsi ey HCl 4 MG 8-09 TABLET BY Seybol d oral Tablet 00:00: MOUTH - 00 EVERY 8 Externa HOURS l NEEDED FOR NAUSEA AND VOMITING ondansetron 2022-0 Yes [id number] 4mg Take 1 Univers (ZOFRAN) 4 8-09 05 tablet by ity of mg tablet 00:00: mouth [place] 00 every 8 Medical (eight) Branch hours as needed for Nausea and Vomiting (N/V). proMETHazin 2022-0 Yes [id number] 25mg Take 1 Univers e 25 mg 8-09 tablet by ity of tablet 00:00: mouth [place] 00 every 6 Medical (six) Branch hours as needed for Nausea and Vomiting (N/V) or N/V unresponsi ve to Ondansetro n. ondansetron 2022-0 Yes [id number] 4mg Take 1 Univers (ZOFRAN) 4 8-09 05 tablet by ity of mg tablet 00:00: mouth [place] 00 every 8 Medical (eight) Branch hours as needed for Nausea and Vomiting (N/V). proMETHazin 2022-0 Yes [id number] 25mg Take 1 Univers e 25 mg 8-09 tablet by ity of tablet 00:00: mouth [place] 00 every 6 Medical (six) Branch hours as needed for Nausea and Vomiting (N/V) or N/V unresponsi ve to Ondansetro n. ondansetron 3-0 Yes [id number] 4mg Take 1 Univers (ZOFRAN) 4 8-09 05 tablet by ity of mg tablet 00:00: mouth [place] 00 every 8 Medical (eight) Branch hours as needed for Nausea and Vomiting (N/V). proMETHazin 2022-0 Yes [id number] 25mg Take 1 Univers e 25 mg 8-09 tablet by ity of tablet 00:00: mouth [place] 00 every 6 Medical (six) Branch hours as needed for Nausea and Vomiting (N/V) or N/V unresponsi ve to Ondansetro n. ondansetron 2022-0 Yes [id number] 4mg Take 1 Univers (ZOFRAN) 4 8-09 05 tablet by ity of mg tablet 00:00: mouth [place] 00 every 8 Medical (eight) Branch hours as needed for Nausea and Vomiting (N/V). proMETHazin 2022-0 Yes [id number] 25mg Take 1 Univers e 25 mg 8-09 tablet by ity of tablet 00:00: mouth [place] 00 every 6 Medical (six) Branch hours as needed for Nausea and Vomiting (N/V) or N/V unresponsi ve to Ondansetro n. ondansetron 2022-0 Yes [id number] 4mg Take 1 Univers (ZOFRAN) 4 8-09 05 tablet by ity of mg tablet 00:00: mouth [place] 00 every 8 Medical (eight) Branch hours as needed for Nausea and Vomiting (N/V). proMETHazin 3-0 Yes [id number] 25mg Take 1 Univers e 25 mg 8-09 tablet by ity of tablet 00:00: mouth [place] 00 every 6 Medical (six) Branch hours as needed for Nausea and Vomiting (N/V) or N/V unresponsi ve to Ondansetro n. ondansetron 2022-0 Yes [id number] 4mg Take 1 Univers (ZOFRAN) 4 8-09 05 tablet by ity of mg tablet 00:00: mouth [place] 00 every 8 Medical (eight) Branch hours as needed for Nausea and Vomiting (N/V). proMETHazin 2022-0 Yes [id number] 25mg Take 1 Univers e 25 mg 8-09 tablet by ity of tablet 00:00: mouth [place] 00 every 6 Medical (six) Branch hours as needed for Nausea and Vomiting (N/V) or N/V unresponsi ve to Ondansetro n. ondansetron 0 Yes [id number] 4mg Take 1 Univers (ZOFRAN) 4 8-09 05 tablet by ity of mg tablet 00:00: mouth [place] 00 every 8 Medical (eight) Branch hours as needed for Nausea and Vomiting (N/V). proMETHazin 0 Yes [id number] 25mg Take 1 Univers e 25 mg 8-09 tablet by ity of tablet 00:00: mouth [place] 00 every 6 Medical (six) Branch hours as needed for Nausea and Vomiting (N/V) or N/V unresponsi ve to Ondansetro n. ondansetron 2022-0 Yes [id number] 4mg Take 1 Univers (ZOFRAN) 4 8- 05 tablet by ity of mg tablet 00:00: mouth [place] 00 every 8 Medical (eight) Branch hours as needed for Nausea and Vomiting (N/V). proMETHazin 2022-0 Yes [id number] 25mg Take 1 Univers e 25 mg 8-09 tablet by ity of tablet 00:00: mouth [place] 00 every 6 Medical (six) Branch hours as needed for Nausea and Vomiting (N/V) or N/V unresponsi ve to Ondansetro n. ondansetron 0 Yes [id number] 4mg Take 1 [facility] (ZOFRAN) 4 8- 05 tablet by ity of mg tablet 00:00: mouth [place] 00 every 8 Medical (eight) Branch hours as needed for Nausea and Vomiting (N/V). proMETHazin 2022-0 Yes [id number] 25mg Take 1 [facility] e 25 mg 8-09 tablet by ity of tablet 00:00: mouth [place] 00 every 6 Medical (six) Branch hours as needed for Nausea and Vomiting (N/V) or N/V unresponsi ve to Ondansetro n. traMADoL 50 2022-0 2022- Yes [id number] 50mg Take 1 Uni vers mg tablet 04-22-17 tablet by ity of 00:00: 04:59 mouth [place] 00 :00 every 6 Medical (six) Branch hours as needed for Pain (scale 7-10) for up to 7 days. Indication s: acute pain lipase-prot 2022-0 Yes 2{capsu 2 capsule, [facility] ease-amylas 8-03 le} Oral, ity of e (CREON) 14:15: ONCE, 1 [place] 12,000-38,0 00 dose, On Medi amy 00 -60,000 [place] 04/16/23 [facility] at 0915, capsule 2 Routine capsule lipase-prot 2022-0 Yes 2{capsu 2 capsule, [facility] ease-amylas 8-03 le} Oral, ity of e (CREON) 14:15: ONCE, 1 [place] 12,000-38,0 00 dose, On Medi amy 00 -60,000 [place] 04/16/23 [facility] at 0915, capsule 2 Routine capsule famotidine 2022- No 20mg 20 mg, [facility] ers (PEPCID 04-16 Slow IV ity of (PF)) 13:30: 12:33 Push, ONCE [place] injection 00 :00 NOW, 1 Medical 20 mg dose, On Branch [place] 04/16/23 at 0830, VASILIY dicyclomine 2022-2022- No 20mg 20 mg, Uni vers (BENTYL) 04-16 Intramuscu ity of injection 13:30: 12:34 lar, ONCE [place] 20 mg 00 :00 NOW, 1 Medical dose, On Branch [place] 04/16/23 at 0830, Routine famotidine 2022-0 202- No 20mg 20 mg, [facility] ers (PEPCID 04-16 Slow IV ity of (PF)) 13:30: 12:33 Push, ONCE [place] injection 00 :00 NOW, 1 Medical 20 mg dose, On Branch [place] 04/16/23 at 0830, VASILIY dicyclomine 2022-0 202- No 20mg 20 mg, Uni vers (BENTYL) 04-16 Intramuscu ity of injection 13:30: 12:34 lar, ONCE [place] 20 mg 00 :00 NOW, 1 Medical dose, On Branch [place] 04/16/23 at 0830, Routine enalaprilat 2022-2022- No 1.25mg 1.25 mg, [facility] (VASOTEC 04-16 Slow IV ity of I.V.) 13:15: 13:17 Push, [place] injection 00 :00 ONCE, 1 Medical 1.25 mg dose, On Branch [facility] 04/16/23 at 0815, STAT lactulose 2022-0 2022- No 45mL 45 mL, Unive rs (CEPHULAC) 04-16 Oral, ity of solution 45 13:15: 13:18 ONCE, 1 [place] mL 00 :00 dose, On [facility] 04/16/23 Branch at 0815, VASILIY ketorolac 2022- No 30mg 30 mg, Unive rs (TORADOL) 04-16 Slow IV ity of injection 13:15: 12:32 Push, ONCE [place] 30 mg 00 :00 NOW, 1 Medical dose, On Branch [facility] 04/16/23 at 0815, VASILIY NaCl 0.9% 2022- No 1000mL at 999 Uni vers (NS) bolus 04-16 mL/hr, ity of infusion 13:15: 13:54 1,000 mL, [place] 1,000 mL 00 :00 IV Medical Piggyback, [place] ONCE, 1 dose, On [facility] 04/16/23 at 0815, STAT enalaprilat 2022- No 1.25mg 1.25 mg, [facility] (VASOTEC 04-16 Slow IV ity of I.V.) 13:15: 13:17 Push, [place] injection 00 :00 ONCE, 1 Medical 1.25 mg dose, On Branch [facility] 04/16/23 at 0815, STAT lactulose 2022-0 2022- No 45mL 45 mL, Unive rs (CEPHULAC) 04-16 Oral, ity of solution 45 13:15: 13:18 ONCE, 1 [place] mL 00 :00 dose, On [facility] 04/16/23 Branch at 0815, VASILIY ketorolac 2022-0 2022- No 30mg 30 mg, Unive rs (TORADOL) 04-16 Slow IV ity of injection 13:15: 12:32 Push, ONCE [place] 30 mg 00 :00 NOW, 1 Medical dose, On Branch [place] 04/16/23 at 0815, VASILIY NaCl 0.9% 2023-0 2023- No 1000mL at 999 Uni vers (NS) bolus 04-16 08-03 mL/hr, ity of infusion 13:15: 13:54 1,000 mL, [place] 1,000 mL 00 :00 IV Medical Piggyback, Branch ONCE, 1 dose, On [place] 04/16/23 at 0815, STAT Famotidine 2023-0 Yes 20mg Take 1 [facility] (PEPCID) 20 8-03 tablet (20 [facility] MG oral 00:00: mg total) - tablet 00 by mouth 2 Externa times l daily. Bisacodyl 2023-0 Yes 5mg QD Take 1 [facility] (DULCOLAX) 8-03 tablet (5 Seyb old 5 MG oral 00:00: mg total) - Tablet 00 by mouth Externa Delayed daily as l Response needed. Famotidine 2023-0 Yes 20mg Take 1 [facility] (PEPCID) 20 8- tablet (20 [facility] MG oral 00:00: mg total) - tablet 00 by mouth 2 Externa times l daily. Bisacodyl 2023-0 Yes 5mg QD Take 1 [facility] (DULCOLAX) 8-03 tablet (5 Seyb old 5 MG oral 00:00: mg total) - Tablet 00 by mouth Externa Delayed daily as l Response needed. lipase-prot 2023-0 Yes [id number] 3000U Take 1 [facility] ease-amylas 8-03 capsule by it y of e (CREON) 00:00: [place] 3,000-9,500 00 the Medical - 15,000 morning Branch unit and 1 capsule capsule at noon and 1 capsule in the evening. Take with meals. hyoscyamine 2023-[id number] 2 [facility] sulfate 8-03 tablets ity of (LEVSIN/SL) 00:00: under the [place] 0.125 mg 00 tongue Medical sublingual every 6 Branch tablet (six) hours as needed (Abdominal pain or cramping). famotidine 2023-0 Yes [id number] 20mg Take 1 [facility] (PEPCID) 20 8-03 tablet by ity of mg tablet 00:00: mouth [place] 00 the Medical morning Branch and 1 tablet in the evening. bisacodyL 5 2022-0 Yes [id number] 5mg Take 1 [facility] mg EC 8-03 tablet by ity of tablet 00:00: mouth once [place] 00 daily as Medical needed for Branch Constipati on. lipase-prot 2022-0 Yes [id number] 3000U Take 1 [facility] ease-amylas 8-03 capsule by it y of e (CREON) 00:00: mouth [place] 3,000-9,500 00 the Medical - 15,000 morning Branch unit and 1 capsule capsule at noon and 1 capsule in the evening. Take with meals. hyoscyamine 2022-[id number] 2 [facility] sulfate 8-03 tablets ity of (LEVSIN/SL) 00:00: under the [place] 0.125 mg 00 tongue Medical sublingual every 6 Branch tablet (six) hours as needed (Abdominal pain or cramping). famotidine 2022-0 Yes [id number] 20mg Take 1 [facility] (PEPCID) 20 8-03 tablet by ity of mg tablet 00:00: mouth [place] 00 the Medical morning Branch and 1 tablet in the evening. bisacodyL 5 2022-0 Yes [id number] 5mg Take 1 [facility] mg EC 8-03 tablet by ity of tablet 00:00: mouth once [place] 00 daily as Medical needed for Branch Constipati on. lipase-prot 2022-0 Yes [id number] 3000U Take 1 [facility] ease-amylas 8-03 capsule by it y of e (CREON) 00:00: mouth in [facility] s 3,000-9,500 00 the Medical - 15,000 morning Branch unit and 1 capsule capsule at noon and 1 capsule in the evening. Take with meals. hyoscyamine 2022-[id number] 2 [facility] sulfate 8-03 tablets ity of (LEVSIN/SL) 00:00: under the [place] 0.125 mg 00 tongue Medical sublingual every 6 Branch tablet (six) hours as needed (Abdominal pain or cramping). bisacodyL 5 2022-0 Yes [id number] 5mg Take 1 [facility] mg EC 8-03 tablet by ity of tablet 00:00: mouth once [place] 00 daily as Medical needed for Branch Constipati on. lipase-prot 3-0 Yes [id number] 3000U Take 1 [facility] ease-amylas 8-03 capsule by it y of e (CREON) 00:00: mouth [place] 3,000-9,500 00 the Medical - 15,000 morning Branch unit and 1 capsule capsule at noon and 1 capsule in the evening. Take with meals. hyoscyamine 2023-[id number] 2 [facility] sulfate 8-03 tablets ity of (LEVSIN/SL) 00:00: under the [place] 0.125 mg 00 tongue Medical sublingual every 6 Branch tablet (six) hours as needed (Abdominal pain or cramping). bisacodyL 5 2022-0 Yes [id number] 5mg Take 1 [facility] mg EC 8-03 tablet by ity of tablet 00:00: mouth once [place] 00 daily as Medical needed for Branch Constipati on. lipase-prot 2022-0 Yes [id number] 3000U Take 1 [facility] ease-amylas 8-03 capsule by it y of e (CREON) 00:00: [facility] 3,000-9,500 00 the Medical - 15,000 morning Branch unit and 1 capsule capsule at noon and 1 capsule in the evening. Take with meals. hyoscyamine 3-[id number] 2 [facility] sulfate 8-03 tablets ity of (LEVSIN/SL) 00:00: under the [place] 0.125 mg 00 tongue Medical sublingual every 6 Branch tablet (six) hours as needed (Abdominal pain or cramping). bisacodyL 5 2022-0 Yes [id number] 5mg Take 1 [facility] mg EC 8-03 tablet by ity of tablet 00:00: mouth once [place] 00 daily as Medical needed for Branch Constipati on. lipase-prot 3-0 Yes [id number] 3000U Take 1 [facility] ease-amylas 8-03 capsule by it y of e (CREON) 00:00: mouth [place] 3,000-9,500 00 the Medical - 15,000 morning Branch unit and 1 capsule capsule at noon and 1 capsule in the evening. Take with meals. hyoscyamine 2023-[id number] 2 [facility] sulfate 8-03 tablets ity of (LEVSIN/SL) 00:00: under the [place] 0.125 mg 00 tongue Medical sublingual every 6 Branch tablet (six) hours as needed (Abdominal pain or cramping). bisacodyL 5 2022-0 Yes [id number] 5mg Take 1 [facility] mg EC 8-03 tablet by ity of tablet 00:00: mouth once [place] 00 daily as Medical needed for Branch Constipati on. lipase-prot 2022-0 Yes [id number] 3000U Take 1 [facility] ease-amylas 8-03 capsule by it y of e (CREON) 00:00: mouth [place] 3,000-9,500 00 the Medical - 15,000 morning Branch unit and 1 capsule capsule at noon and 1 capsule in the evening. Take with meals. hyoscyamine 2022-[id number] 2 [facility] sulfate 8-03 tablets ity of (LEVSIN/SL) 00:00: under the [place] 0.125 mg 00 tongue Medical sublingual every 6 Branch tablet (six) hours as needed (Abdominal pain or cramping). bisacodyL 5 2022-0 Yes [id number] 5mg Take 1 [facility] mg EC 8-03 tablet by ity of tablet 00:00: mouth once [place] 00 daily as Medical needed for Branch Constipati on. lipase-prot 2022-0 Yes [id number] 3000U Take 1 [facility] ease-amylas 8-03 capsule by it y of e (CREON) 00:00: [facility] 3,[facility]-9,500 [facility] the Medical - 15,000 morning Branch unit and 1 capsule capsule at noon and 1 capsule in the evening. Take with meals. hyoscyamine 2022-[id number] 2 [facility] sulfate 8-03 tablets ity of (LEVSIN/SL) 00:00: under the [place] 0.125 mg 00 tongue Medical sublingual every 6 Branch tablet (six) hours as needed (Abdominal pain or cramping). bisacodyL 5 2022-0 Yes [id number] 5mg Take 1 [facility] mg EC 8-03 tablet by ity of tablet 00:00: mouth once [place] 00 daily as Medical needed for Branch Constipati on. lipase-prot 2023-0 Yes [id number] 3000U Take 1 [facility] ease-amylas 8-03 capsule by it y of e (CREON) 00:00: mouth [place] 3,000-9,500 00 the Medical - 15,000 morning Branch unit and 1 capsule capsule at noon and 1 capsule in the evening. Take with meals. hyoscyamine 2022-[id number] 2 [facility] sulfate 8-03 tablets ity of (LEVSIN/SL) 00:00: under the [place] 0.125 mg 00 tongue Medical sublingual every 6 Branch tablet (six) hours as needed (Abdominal pain or cramping). famotidine 2022-0 Yes [id number] 20mg Take 1 [facility] (PEPCID) 20 8-03 tablet by ity of mg tablet 00:00: mouth [place] 00 the Medical morning Branch and 1 tablet in the evening. bisacodyL 5 2022-0 Yes [id number] 5mg Take 1 [facility] mg EC 8-03 tablet by ity of tablet 00:00: mouth once [place] 00 daily as Medical needed for Branch Constipati on. lipase-prot 2022-0 Yes [id number] 3000U Take 1 [facility] ease-amylas 8-03 capsule by it y of e (CREON) 00:00: mouth [place] 3,000-9,500 00 the Medical - 15,000 morning Branch unit and 1 capsule capsule at noon and 1 capsule in the evening. Take with meals. hyoscyamine 2022-[id number] 2 [facility] sulfate 8-03 tablets ity of (LEVSIN/SL) 00:00: under the [place] 0.125 mg 00 tongue Medical sublingual every 6 Branch tablet (six) hours as needed (Abdominal pain or cramping). famotidine 2022-0 Yes [id number] 20mg Take 1 [facility] (PEPCID) 20 8-03 tablet by ity of mg tablet 00:00: mouth [place] 00 the Medical morning Branch and 1 tablet in the evening. bisacodyL 5 2022-0 Yes [id number] 5mg Take 1 [facility] mg EC 8-03 tablet by ity of tablet 00:00: mouth once [place] 00 daily as Medical needed for Branch Constipati on. lipase-prot 2023-0 Yes [id number] 3000U Take 1 [facility] ease-amylas 8-03 capsule by it y of e (CREON) 00:00: mouth [place] 3,000-9,500 00 the Medical - 15,000 morning Branch unit and 1 capsule capsule at noon and 1 capsule in the evening. Take with meals. hyoscyamine [id number] 2 [facility] sulfate 8-03 tablets ity of (LEVSIN/SL) 00:00: under the [place] 0.125 mg 00 tongue Medical sublingual every 6 Branch tablet (six) hours as needed (Abdominal pain or cramping). famotidine 0 Yes [id number] 20mg Take 1 [facility] (PEPCID) 20 8-03 tablet by ity of mg tablet 00:00: mouth [place] 00 the Medical morning Branch and 1 tablet in the evening. bisacodyL 5 2022-0 Yes [id number] 5mg Take 1 [facility] mg EC 8-03 tablet by ity of tablet 00:00: mouth once [place] 00 daily as Medical needed for Branch Constipati on. famotidine 2022- No [id number] 20mg Take 1 [facility] (PEPCID) 20 8-03 10-20 tablet by it y of mg tablet 00:00: 00:00 mouth in [place] 00 :00 the Medical morning Branch and 1 tablet in the evening. Lorazepam 1 0 Yes 1mg Q.[id number] Take 1 [facility] MG oral 7-23 [id number] tablet (1 [facility] Tablet 00:00: 3D mg total) - 00 by mouth Externa every 8 l hours as needed. Lorazepam 1 0 Yes 1mg Q.[id number] Take 1 [facility] MG oral 7-23 [id number] tablet (1 S [facility] Tablet 00:00: 3D mg total) - 00 by mouth Externa every 8 l hours as needed. iopamidol 2022- No [id number] 100mL 100 mL, [facility] (ISOVUE 04-01 Intravenou ity o f 370-500 mL) 07:45: 06:58 s, ONCE, 1 [place] injection 00 :00 dose, On Medica l 100 mL Wed Branch 04/01/23 at 0245, Routine famotidine 2022- No 20mg 20 mg, [facility] ers (PEPCID 04-01 Slow IV ity of (PF)) 05:45: 06:09 Push, [place] injection 00 :00 ONCE, 1 Medical 20 mg dose, On Branch Thu04/01/23 at 0045, VASILIY FENTanyl PF 2022- No 50ug 50 mcg, Un veronica (SUBLIMAZE 04-01 Slow IV ity o f (PF)) 05:38: 06:10 Push, [place] injection 00 :00 ONCE, 1 Medical 50 mcg dose, On Thu04/01/23 at 0045, VASILIY NaCl 0.9% 2022- No 1000mL at 999 Uni vers (NS) IV 04-01 mL/hr, ity of infusion 05:05: 06:30 Intravenou [place] 1,000 mL 00 :00 s, ONCE, 1 Medic al dose, On Thu04/01/23 at 0015, VASILIY ondansetron 2022- No 4mg 4 mg, Slow [facility] (ZOFRAN 04-01 IV Push, ity of (PF)) 05:05: 05:08 ONCE, 1 [place] injection 4 00 :00 dose, On Medi amy mg Thu04/01/23 at 0015, VASILIY sodium 2022-0 Yes 5mL 5 mL, Univers chloride 04-01 Intravenou ity o f (NS) 05:04: s, PRN, [place] injection 5 36 Starting Medi amy mL on Thu04/01/23 at 0004, Until Discontinu ed, Routine, IV line flushing ondansetron 3-0 Yes [id number] 4mg Take 1 [facility] 4 mg 7-19 tablet by ity of disintegrat 00:00: mouth [place] ing tablet 00 every 8 Medica l (eight) Branch hours as needed for Nausea and Vomiting (N/V). ondansetron 2023-0 Yes [id number] 4mg Take 1 [facility] 4 mg 7-19 tablet by ity of disintegrat 00:00: mouth [place] ing tablet 00 every 8 Medica l (eight) Branch hours as needed for Nausea and Vomiting (N/V). ondansetron 2023-0 Yes [id number] 4mg Take 1 [facility] 4 mg 7-19 tablet by ity of disintegrat 00:00: mouth [place] ing tablet 00 every 8 Medica l (eight) Branch hours as needed for Nausea and Vomiting (N/V). ondansetron 2023-0 Yes [id number] 4mg Take 1 [facility] 4 mg 7-19 tablet by ity of disintegrat 00:00: mouth [place] ing tablet 00 every 8 Medica l (eight) Branch hours as needed for Nausea and Vomiting (N/V). ondansetron 2023-0 Yes [id number] 4mg Take 1 [facility] 4 mg 7-19 tablet by ity of disintegrat 00:00: mouth [place] ing tablet 00 every 8 Medica l (eight) Branch hours as needed for Nausea and Vomiting (N/V). ondansetron 2023-0 Yes [id number] 4mg Take 1 [facility] 4 mg 7-19 tablet by ity of disintegrat 00:00: mouth [place] ing tablet 00 every 8 Medica l (eight) Branch hours as needed for Nausea and Vomiting (N/V). ondansetron 2023-0 Yes [id number] 4mg Take 1 [facility] 4 mg 7-19 tablet by ity of disintegrat 00:00: mouth [place] ing tablet 00 every 8 Medica l (eight) Branch hours as needed for Nausea and Vomiting (N/V). ondansetron 2023-0 Yes [id number] 4mg Take 1 [facility] 4 mg 7-19 tablet by ity of disintegrat 00:00: mouth [place] ing tablet 00 every 8 Medica l (eight) Branch hours as needed for Nausea and Vomiting (N/V). ondansetron 2023-0 Yes [id number] 4mg Take 1 [facility] 4 mg 7-19 tablet by ity of disintegrat 00:00: mouth [place] ing tablet 00 every 8 Medica l (eight) Branch hours as needed for Nausea and Vomiting (N/V). ondansetron 2023-0 Yes [id number] 4mg Take 1 [facility] 4 mg 7-19 tablet by ity of disintegrat 00:00: mouth [place] ing tablet 00 every 8 Medica l (eight) Branch hours as needed for Nausea and Vomiting (N/V). ondansetron 2023-0 Yes [id number] 4mg Take 1 [facility] 4 mg 7-19 tablet by ity of disintegrat 00:00: mouth [place] ing tablet 00 every 8 Medica l (eight) Branch hours as needed for Nausea and Vomiting (N/V). ondansetron Yes [id number] 4mg Take 1 [facility] 4 mg 7-19 tablet by ity of disintegrat 00:00: mouth [place] ing tablet 00 every 8 Medica l (eight) Branch hours as needed for Nausea and Vomiting (N/V). traMADoL 50 2022- No [id number] 50mg Take 1 Uni vers mg tablet 04-01 tablet by ity of 00:00: 04:59 mouth [place] 00 :00 every 8 Medical (eight) Branch hours as needed for Pain (scale 4-6) for up to 7 days. Indication s: acute pain predniSONE 2022- No 40mg 40 mg, Univ ers (DELTASONE) 12-09 Oral, ity of tablet 40 07:15: 06:33 ONCE, 1 [place] mg 00 :00 dose, On Medical [facility] Branch 12/09/22 at 0215, VASILIY traMADoL 2022- No 50mg 50 mg, Univer s (ULTRAM) 12-09 Oral, ity of tablet 50 07:15: 06:33 ONCE, 1 [place] mg 00 :00 dose, On Medical [facility] Branch 12/09/22 at 0215, VASILIY iopamidol 2022- No [id number] 100mL 100 mL, Univers (ISOVUE 12-09 Intravenou ity o f 370-500 mL) 06:15: 06:15 s, ONCE, 1 [place] injection 00 :00 dose, On Medica l 100 mL [facility] Branch 12/09/22 at 0115, Routine ketorolac 2022- No 30mg 30 mg, Unive rs (TORADOL) 12-09 Slow IV ity of injection 06:15: 05:30 Push, [place] 30 mg 00 :00 ONCE, 1 Medical dose, On Branch [facility] 12/09/22 at 0115, VASILIY morpHINE (4 2022- No 4mg 4 mg, Slow Univers mg/mL) 12-09 IV Push, ity of injection 4 06:15: 05:30 ONCE, 1 [place] mg 00 :00 dose, On Medical Thu Branch 12/09/22 at 0115, VASILIY NaCl 0.9% 2022- No 1000mL at 999 Uni vers (NS) bolus 12-09 mL/hr, ity of infusion 06:15: 06:33 1,000 mL, [place] 1,000 mL 00 :00 IV Medical Infusion, Branch ONCE, 1 dose, On e 12/09/22 at 0115, VASILIY ondansetron 2022- No 8mg 8 mg, Slow [facility] (ZOFRAN 12-09 IV Push, ity of (PF)) 05:30: 05:30 ONCE, 1 [place] injection 8 00 :00 dose, On Medi amy mg Thu Branch 12/09/22 at 0030, VASILIY traMADoL 50 2022-0 Yes [id number] 50mg Take 1 Univ ers mg tablet 3-28 tablet by ity o f 00:00: mouth [place] 00 every 6 Medical (six) Branch hours as needed (pain). Indication s: acute pain ondansetron 2022-0 Yes [id number] 1-2 Un veronica 4 mg tablet 3-28 tablets ity o f 00:00: every 8 [place] 00 hours as Medical needed for Branch nausea traMADoL 50 2022-0 Yes [id number] 50mg Take 1 Univ ers mg tablet 3-28 tablet by ity o f 00:00: mouth [place] 00 every 6 Medical (six) Branch hours as needed (pain). Indication s: acute pain ondansetron 2022-0 Yes [id number] 1-2 Un veronica 4 mg tablet 3-28 tablets ity o f 00:00: every 8 [place] 00 hours as Medical needed for Branch nausea traMADoL 50 2022-0 Yes [id number] 50mg Take 1 Univ ers mg tablet 3-28 tablet by ity o f 00:00: mouth [place] 00 every 6 Medical (six) Branch hours as needed (pain). Indication s: acute pain ondansetron 2022-0 Yes [id number] 1-2 Un veronica 4 mg tablet 3-28 tablets ity o f 00:00: every 8 [place] 00 hours as Medical needed for Branch nausea traMADoL 50 2022-0 Yes [id number] 50mg Take 1 Univ ers mg tablet 3-28 tablet by ity o f 00:00: mouth [place] 00 every 6 Medical (six) Branch hours as needed (pain). Indication s: acute pain ondansetron 2023-0 Yes [id number] 1-2 Un veronica 4 mg tablet 3-28 tablets ity o f 00:00: every 8 [place] 00 hours as Medical needed for Branch nausea traMADoL 50 3-0 Yes [id number] 50mg Take 1 Univ ers mg tablet 3-28 tablet by ity o f 00:00: mouth [place] 00 every 6 Medical (six) Branch hours as needed (pain). Indication s: acute pain ondansetron 3-0 Yes [id number] 1-2 Un veronica 4 mg tablet 3-28 tablets ity o f 00:00: every 8 [place] 00 hours as Medical needed for Branch nausea traMADoL 50 3-0 Yes [id number] 50mg Take 1 Univ ers mg tablet 3-28 tablet by ity o f 00:00: mouth [place] 00 every 6 Medical (six) Branch hours as needed (pain). Indication s: acute pain ondansetron 3-0 Yes [id number] 1-2 Un veronica 4 mg tablet 3-28 tablets ity o f 00:00: every 8 [place] 00 hours as Medical needed for Branch nausea traMADoL 50 3-0 Yes [id number] 50mg Take 1 Univ ers mg tablet 3-28 tablet by ity o f 00:00: mouth [place] 00 every 6 Medical (six) Branch hours as needed (pain). Indication s: acute pain ondansetron 3-0 Yes [id number] 1-2 Un veronica 4 mg tablet 3-28 tablets ity o f 00:00: every 8 [place] 00 hours as Medical needed for Branch nausea traMADoL 50 3-0 Yes [id number] 50mg Take 1 Univ ers mg tablet 3-28 tablet by ity o f 00:00: mouth [place] 00 every 6 Medical (six) Branch hours as needed (pain). Indication s: acute pain ondansetron 2023-0 Yes [id number] 1-2 Un veronica 4 mg tablet 3-28 tablets ity o f 00:00: every 8 [place] 00 hours as Medical needed for Branch nausea traMADoL 50 3-0 Yes [id number] 50mg Take 1 Univ ers mg tablet 3-28 tablet by ity o f 00:00: mouth [place] 00 every 6 Medical (six) Branch hours as needed (pain). Indication s: acute pain ondansetron 2023-0 Yes [id number] 1-2 Un veronica 4 mg tablet 3-28 tablets ity o f 00:00: every 8 [place] 00 hours as Medical needed for Branch nausea traMADoL 50 3-0 Yes [id number] 50mg Take 1 Univ ers mg tablet 3-28 tablet by ity o f 00:00: mouth [place] 00 every 6 Medical (six) Branch hours as needed (pain). Indication s: acute pain ondansetron 2023-0 Yes [id number] 1-2 Un veronica 4 mg tablet 3-28 tablets ity o f 00:00: every 8 [place] 00 hours as Medical needed for Branch nausea traMADoL 50 3-0 Yes [id number] 50mg Take 1 Univ ers mg tablet 3-28 tablet by ity o f 00:00: mouth [place] 00 every 6 Medical (six) Branch hours as needed (pain). Indication s: acute pain ondansetron 3-0 Yes [id number] 1-2 Un veronica 4 mg tablet 3-28 tablets ity o f 00:00: every 8 [place] 00 hours as Medical needed for Branch nausea traMADoL 50 3-0 Yes [id number] 50mg Take 1 Univ ers mg tablet 3-28 tablet by ity o f 00:00: mouth [place] 00 every 6 Medical (six) Branch hours as needed (pain). Indication s: acute pain ondansetron 2023-0 Yes [id number] 1-2 Un veronica 4 mg tablet 3-28 tablets ity o f 00:00: every 8 [place] 00 hours as Medical needed for Branch nausea traMADoL 50 3-0 Yes [id number] 50mg Take 1 Univ ers mg tablet 3-28 tablet by ity o f 00:00: mouth [place] 00 every 6 Medical (six) Branch hours as needed (pain). Indication s: acute pain ondansetron 2023-0 Yes [id number] 1-2 Un veronica 4 mg tablet 3-28 tablets ity o f 00:00: every 8 [place] 00 hours as Medical needed for Branch nausea traMADoL 50 3-0 Yes [id number] 50mg Take 1 Univ ers mg tablet 3-28 tablet by ity o f 00:00: mouth [place] 00 every 6 Medical (six) Branch hours as needed (pain). Indication s: acute pain ondansetron 2022-0 Yes [id number] 1-2 Un veronica 4 mg tablet 3-28 tablets ity o f 00:00: every 8 [place] 00 hours as Medical needed for Branch nausea traMADoL 50 2022-0 Yes [id number] 50mg Take 1 Univ ers mg tablet 3-28 tablet by ity o f 00:00: mouth [place] 00 every 6 Medical (six) Branch hours as needed (pain). Indication s: acute pain ondansetron 2022-0 Yes [id number] 1-2 Un veronica 4 mg tablet 3-28 tablets ity o f 00:00: every 8 [place] 00 hours as Medical needed for Branch nausea predniSONE 2022-0 2022- No [id number] 40mg Take 2 [facility] 20 mg 3-28 04-05 tablets by ity of tablet 00:00: 04:59 mouth in [place] 00 :00 the Medical morning Branch for 7 days. iopamidol 2022- No [id number] 100mL 100 mL, [facility] (ISOVUE 11-25 Intravenou ity o f 370-500 mL) 06:15: 06:15 s, ONCE, 1 [place] injection 00 :00 dose, On Medica l 100 mL [facility] 11/25/22 at 0115, Routine NaCl 0.9% No 1000mL at 999 Uni vers (NS) bolus 11-25 mL/hr, ity of infusion 06:00: 07:00 1,000 mL, [place] 1,000 mL 00 :00 IV Medical Infusion, Branch ONCE, 1 dose, On Thu11/25/22 at 0100, STAT FENTanyl PF No 50ug 50 mcg, Un veronica (SUBLIMAZE 11-25 Slow IV ity o f (PF)) 05:45: 05:03 Push, [place] injection 00 :00 ONCE, 1 Medical 50 mcg dose, On Branch Thu11/25/22 at 0045, Routine ondansetron 2022- No 4mg 4 mg, Slow [facility] (ZOFRAN 11-25 IV Push, ity of (PF)) 05:00: 05:04 ONCE, 1 [place] injection 4 00 :00 dose, On Medi amy mg 11/25/22 at 0000, VASILIY Pancrelipas Yes Luz Maria e, 1-30 [facility] Lip-Prot-Am 00:00: - yl, (Creon) 00 Externa [id number] l units oral Cap DR Particles Pancrelipas Yes Luz Maria e, 1-30 [facility] Lip-Prot-Am 00:00: - yl, (Creon) 00 Externa [id number] l units oral Cap DR Particles lipase-prot 2022- No [id number] 1{capsu Take 1 [facility] ease-amylas 1-30 05-01 le} capsule by i ty of e (CREON) 00:00: 04:59 mouth in [place] 12,000-38,0 00 :00 the Medical 00 -60,000 morning Branch unit and 1 capsule capsule at noon and 1 capsule in the evening. Take with meals. Do all this for 90 days. lipase-prot 2022- No [id number] 1{capsu Take 1 [facility] ease-amylas 1-30 05-01 le} capsule by i ty of e (CREON) 00:00: 04:59 mouth in [place] 12,000-38,0 00 :00 the Medical 00 -60,000 morning Branch unit and 1 capsule capsule at noon and 1 capsule in the evening. Take with meals. Do all this for 90 days. lipase-prot 2022- No [id number] 1{capsu Take 1 [facility] ease-amylas 1-30 05-01 le} capsule by i ty of e (CREON) 00:00: 04:59 mouth in [place] 12,000-38,0 00 :00 the Medical 00 -60,000 morning Branch unit and 1 capsule capsule at noon and 1 capsule in the evening. Take with meals. Do all this for 90 days. lipase-prot 2022- No [id number] 1{capsu Take 1 [facility] ease-amylas 1-30 05-01 le} capsule by i ty of e (CREON) 00:00: 04:59 mouth in [place] 12,000-38,0 00 :00 the Medical 00 -60,000 morning Branch unit and 1 capsule capsule at noon and 1 capsule in the evening. Take with meals. Do all this for 90 days. lipase-prot 2023-0 Yes 2{capsu 2 capsule, [facility] ease-amylas 1-29 le} Oral, TID ity of e (CREON) 23:00: MEALS, [place] 12,000-38,0 00 First dose Me dical 00 -60,000 on [place] Branch unit 10/12/22 at capsule 2 1700, capsule Until Discontinu ed, Routine lisinopriL 2023-0 Yes 10mg Take 10 mg U nivers 10 mg 1-29 by mouth ity of tablet 17:56: in the [place] [address] morning. Medical Branch lisinopriL 2023-0 Yes 10mg Take 10 mg U nivers 10 mg 1-29 by mouth ity of tablet 17:56: in the [place] [address] morning. Medical Branch lisinopriL 2023-0 Yes 10mg Take 10 mg U nivers 10 mg 1-29 by mouth ity of tablet 17:56: in the [place] [address] morning. Medical Branch lisinopriL 2023-0 Yes 10mg Take 10 mg U nivers 10 mg 1-29 by mouth ity of tablet 17:56: in the [place] [address] morning. Medical Branch lisinopriL 2023-0 Yes 10mg Take 10 mg U nivers 10 mg 1-29 by mouth ity of tablet 17:56: in the [place] [address] morning. Medical Branch lisinopriL 2023-0 Yes 10mg Take 10 mg U nivers 10 mg 1-29 by mouth ity of tablet 17:56: in the [place] [address] morning. Medical Branch lisinopriL 2023-0 Yes 10mg Take 10 mg U nivers 10 mg 1-29 by mouth ity of tablet 17:56: in the [place] [address] morning. Medical Branch lisinopriL 2023-0 Yes 10mg Take 10 mg U nivers 10 mg 1-29 by mouth ity of tablet 17:56: in the [place] [address] morning. Medical Branch lisinopriL 2023-0 Yes 10mg Take 10 mg U nivers 10 mg 1-29 by mouth ity of tablet 17:56: in the [place] [address] morning. Medical Branch lisinopriL 2023-0 Yes 10mg Take 10 mg U nivers 10 mg 1-29 by mouth ity of tablet 17:56: in the [place] [address] morning. Medical Branch lisinopriL 2023-0 Yes 10mg Take 10 mg U nivers 10 mg 1-29 by mouth ity of tablet 17:56: in the [place] 15 morning. Medical Branch lisinopriL 2023-0 Yes 10mg Take 10 mg U nivers 10 mg 1-29 by mouth ity of tablet 17:56: in the [place] 15 morning. Medical Branch lisinopriL 2023-0 Yes 10mg Take 10 mg U nivers 10 mg 1-29 by mouth ity of tablet 17:56: in the [place] 15 morning. Medical Branch lisinopriL 2023-0 Yes 10mg Take 10 mg U nivers 10 mg 1-29 by mouth ity of tablet 17:56: in the [place] 15 morning. Medical Branch lisinopriL 2023-0 Yes 10mg Take 10 mg U nivers 10 mg 1-29 by mouth ity of tablet 17:56: in the [place] 15 morning. Medical Branch lisinopriL 3-0 Yes 10mg Take 10 mg U nivers 10 mg 1-29 by mouth ity of tablet 17:56: in the [place] 15 morning. Medical Branch lisinopriL 3-0 Yes 10mg Take 10 mg U nivers 10 mg 1-29 by mouth ity of tablet 17:56: in the [place] 15 morning. Medical Branch lisinopriL 3-0 Yes 10mg Take 10 mg U nivers 10 mg 1-29 by mouth ity of tablet 17:56: in the [place] 15 morning. Medical Branch lisinopriL 3-0 Yes 10mg Take 10 mg U nivers 10 mg 1-29 by mouth ity of tablet 17:56: in the [place] 15 morning. Medical Branch meloxicam 2022-0 Yes 7.5mg 7.5 mg, Univ ers (MOBIC) 10-12 Oral, ity of tablet 7.5 17:15: DAILY, [place] mg 00 First dose Medical on [facility] 10/12/22 at 1115, Until Discontinu ed, Routine omeprazole 3-0 Yes 20mg 20 mg, Unive rs (PRILOSEC) 10-12 Oral, ity of capsule 20 15:00: DAILY, [place] mg 00 First dose Medical on [facility] 10/12/22 at 0900, Until Discontinu ed, Routine Pantoprazol 2022-0 Yes Luz Maria e Sodium 40 10-12 [facility] MG oral 00:00: - Tablet 00 Externa Delayed l Response Pantoprazol Yes Luz Maria e Sodium 40 10-12 [facility] MG oral 00:00: - Tablet 00 Externa Delayed l Response pantoprazol 2022- No [id number] 40mg Take 1 Univers e 40 mg EC 10-12 tablet by ity of tablet 00:00: 04:59 mouth in [place] 00 :00 [facility] for 90 days. lipase-prot No [id number] 2{capsu Take 2 [facility] ease-amylas 10-12 le} capsules ity of e 00:00: 04:59 by mouth [place] 12,000-38,0 00 :00 in the Medica l 00 -60,000 [facility] Branch unit and 2 capsule capsules at noon and 2 capsules in the evening. Take with meals. Do all this for 90 days. Do not crush or chew. pantoprazol 2022- No [id number] 40mg Take 1 Univers e 40 mg EC 10-12 tablet by ity of tablet 00:00: 04:59 mouth in [place] 00 :00 [facility] for 90 days. pantoprazol No [id number] 40mg Take 1 Univers e 40 mg EC 10-12 tablet by ity of tablet 00:00: 04:59 mouth in [place] 00 :00 [facility] for 90 days. pantoprazol 2022- No [id number] 40mg Take 1 Univers e 40 mg EC 10-12 tablet by ity of tablet 00:00: 04:59 mouth in [place] 00 :00 [facility] for 90 days. pantoprazol No [id number] 40mg Take 1 Univers e 40 mg EC 10-12 tablet by ity of tablet 00:00: 04:59 mouth in [place] 00 :00 [facility] for 90 days. meloxicam 2022- No [id number] 7.5mg Take 1 Univers 7.5 mg 10-12 02-13 tablet by ity of tablet 00:00: 05:59 mouth [place] 00 :00 daily as Medical needed for Branch Pain (scale 7-10) for up to 14 days. meloxicam 2022- No [id number] 7.5mg Take 1 [facility] 7.5 mg 10-12 tablet by ity of tablet 00:00: 05:59 mouth [place] 00 :00 daily as Medical needed for Branch Pain (scale 7-10) for up to 14 days. HYDROcodone 2022- No [id number] 1{tbl} Take 1 U nivers -acetaminop 10-1206 tablet by it y of hen 5-325 [...] Until 10/12/22 at 0803, Routine HYDROcodone 2022- No 1{tbl} 1 tablet, Univers -acetaminop 10-11 Oral, [...] 1000mL at 999 Uni vers (NS) bolus 1-28 01-28 mL/hr, ity of infusion 16:45: 16:02 1,000 [...] Branch 10/11/22 at 1015, VASILIY morpHINE (4 2022- No 4mg 4 mg, Slow Univers mg/mL) 10-11 IV Push, ity of injection 4 16:15: 16:14 ONCE, 1 [place] mg 00 :00 dose, On Medical Sat Branch 10/11/22 at 1015, STAT iopamidol 2022- No [id number] 120mL 120 mL, Univers (ISOVUE 10-11 Intravenou ity o f 370-500 mL) 15:45: 14:43 s, ONCE, 1 [place] injection 00 :00 dose, On Medica l 120 mL Sat Branch 10/11/22 at 0945, Routine FENTanyl PF No 50ug 50 mcg, Un veronica (SUBLIMAZE 10-09 Slow IV ity o f (PF)) 08:30: 07:23 Push, [place] injection 00 :00 ONCE, 1 Medical 50 mcg dose, On Branch [facility] 10/09/22 at 0230, Routine iopamidol 2022- No [id number] 100mL 100 mL, Univers (ISOVUE 10-09 Intravenou ity o f 370-500 mL) 07:15: 07:15 s, ONCE, 1 [place] injection 00 :00 dose, On Medica l 100 mL [place] Branch 10/09/22 at 0115, Routine ketorolac No 30mg 30 mg, Unive rs (TORADOL) 10-09 Slow IV ity of injection 06:15: 05:25 Push, [place] 30 mg 00 :00 ONCE, 1 Medical dose, On Branch [facility] 10/09/22 at 0015, Routine ondansetron Yes [id number] 4mg Take 1 Univers (ZOFRAN) 4 -26 tablet by ity of mg tablet 00:00: mouth [place] 00 every 8 Medical (eight) Branch hours as needed for Nausea and Vomiting (N/V). traMADoL Yes [id number] 50mg Take 1 Univers (ULTRAM) 50 1-26 tablet by ity of mg tablet 00:00: mouth [place] 00 every 6 Medical (six) Branch hours as needed for Pain (scale 7-10). Indication s: acute pain ondansetron 2022- No [id number] 4mg Take 1 Univers (ZOFRAN) 4 10-09 [...] 30mg 30 mg, Unive rs (TORADOL) 10-21 Intramuscu ity of injection 17:15: 16:35 lar, ONCE, [place] 30 mg 00 :00 1 dose, On [facility] Wed Branch 08/20/22 at 1115, VASILIY TAKE 1 2021-09 No TABLET 0-26 DAILY. 00:00: 00 Amlodipine 2021-09 Yes Luz Maria Besylate 10 0-26 [facility] MG oral 00:00: - Tablet 00 Externa l Amlodipine 2021-09 Yes Luz Maria Besylate 10 0-26 [facility] MG oral 00:00: - Tablet 00 Externa l morpHINE (4 2021- No 4mg 4 mg, Slow Univers mg/mL) 06-09 IV Push, ity of injection 4 13:15: 12:54 ONCE, 1 [place] mg 00 :00 dose, On [facility] Mon Branch 06/09/22 at 0815, VASILIY ketorolac 2021- No 30mg 30 mg, Unive rs (TORADOL) 06-09 Slow IV ity of injection 13:15: 12:55 Push, [place] 30 mg 00 :00 ONCE, 1 Medical dose, On Branch 06/09/22 at 0815, VASILIY iopamidol 2021- No [id number] 60mL 60 mL, Univers (ISOVUE 06-09 Intravenou ity o f 370-500 mL) 13:07: 13:08 s, ONCE, 1 [place] injection 00 :00 dose, On Medica l 60 mL Mon Branch 06/09/22 at 0815, Routine ondansetron 2021- No 4mg 4 mg, Slow Univers (ZOFRAN 06-09 IV Push, ity of (PF)) 12:30: 12:54 ONCE, 1 [place] injection 4 00 :00 dose, On Medi amy mg Mon Branch 06/09/22 at 0730, VASILIY dexamethaso 2021- No 10mg 10 mg, Uni vers ne sod phos 06-09 Slow IV ity of PF 12:30: 12:55 Push, [place] injection 00 :00 ONCE, 1 Medical 10 mg dose, On Branch 06/09/22 at 0730, 1 mL traMADoL 50 0 Yes [id number] 50mg Take 1 Univ ers mg tablet 9-26 tablet by ity o f 00:00: mouth [place] 00 every 6 Medical (six) Branch hours as needed (pain). Indication s: acute pain lidocaine 5 Yes [id number] Apply one Univers % (700 9-26 patch [...] s: acute pain lidocaine 5 2021-0 Yes [id number] Apply one Univers % (700 9-26 patch [...] s: acute pain lidocaine 5 2021-0 Yes [id number] Apply one Univers % (700 9-26 patch [...] (pain). Indication s: acute pain lidocaine 5 0 Yes [id number] Apply one [facility] % (700 9-26 patch to ity of mg/patch) 00:00: most [place] patch 00 painful Medical area up to Branch 12 hours a day as needed for pain. PHARMACIST : dispense one box traMADoL 50 2021-0 2022- No [id number] 50mg Take 1 Uni vers mg tablet 06-09- tablet by ity of 00:00: 00:00 mouth [place] 00 :00 every 6 Medical (six) Branch hours as needed (pain). Indication s: acute pain lidocaine 5 2021-0 2022- No [id number] Apply one Univers % (700 9-26 - patch to ity of mg/patch) 00:00: 00:00 most [place] patch 00 :00 painful Medical area up to Branch 12 hours a day as needed for pain. PHARMACIST : dispense one box predniSONE 2021-0 2021- No [id number] 40mg Take 2 Univers 20 mg - 10-04 tablets by ity of tablet 00:00: 04:59 mouth in [place] 00 :00 the Medical morning Branch for 7 days. Dose 2021-0 No Unknown 02-03 00:00: 00 Dose 2021-0 No Unknown - 00:00: 00 lisinopriL 2021-0 Yes 20mg 20 mg, Unive rs (PRINIVIL,Z 2-18 Oral, QHS, it y of ESTRIL) 03:00: First dose [place] tablet 20 00 (after Medical mg last Branch modificati on) on [place] 10/31/21 at 2100, Until Discontinu ed, Routine lisinopriL 2021-0 2021- No [id number] 20mg Take 1 Univers 20 mg 2-18 -21 tablet by ity of tablet 00:00: 04:59 mouth at [place] 00 :00 bedtime Medical for 30 Branch days. lisinopriL 2021-0 2021- No [id number] 20mg Take 1 Univers 20 mg 2-18 -21 tablet by ity of tablet 00:00: 04:59 mouth at [place] 00 :00 bedtime Medical for 30 Branch days. lactated 2021-0 Yes 1000mL at 75 Univer s ringers IV 2-17 mL/hr, ity of infusion 19:00: 1,000 mL, [place] 1,000 mL 00 IV Medical Infusion, Branch CONTINUOUS , Starting on [facility] 10/31/21 at 1300, Until Discontinu ed, Routine amLODIPine 0 Yes 10mg 10 mg, Unive rs (NORVASC) 2-17 Oral, ity of tablet 10 15:00: DAILY, [place] mg 00 First dose Medical on [place] 10/31/21 at 0900, Until Discontinu ed, Routine enoxaparin 0 Yes 40mg 40 mg, Unive rs (LOVENOX) 2-17 Subcutaneo ity of injection 15:00: us, DAILY, [place] 40 mg 00 First dose Medical on [facility] 10/31/21 at 0900, Until Discontinu ed, Routine lactated 2021-0 2021- No 1000mL at 150 Univ ers ringers IV -17 02-17 mL/hr, ity of infusion 07:00: 18:45 1,000 mL, [place] 1,000 mL 00 :24 IV Medical Infusion, Branch CONTINUOUS , Starting on [place] 10/31/21 at 0100, Until [place] 10/31/21 at 1245, Routine lactated 2021-0 202- No 1000mL at 75 Unive rs ringers IV 2-17 02-17 mL/hr, ity of infusion 01:00: 06:52 1,000 mL, [place] 1,000 mL 00 :16 IV Medical Infusion, Branch CONTINUOUS , Starting on [facility] 10/30/21 at 1900, Until [place] 10/31/21 at 0052, Routine morpHINE 2021- No 4mg 4 mg, Slow Un veronica injection 4 10-31 IV Push, ity of mg 00:43: 00:42 Q4HPRN, [place] 35 :35 Starting Medical on Wed Branch 10/30/21 at 1843, Until [place] 10/31/21 [...] ity of (PF)) 21:15: 20:28 ONCE, 1 [place] injection 4 00 :00 dose, On Medi amy mg Thu Branch 10/30/21 at 1515, VASILIY morpHINE 2021- No 4mg 4 mg, Slow Un veronica injection 4 10-30 IV Push, ity of mg 21:15: 20:29 ONCE, 1 [place] 00 :00 dose, On Medical Thu Branch 10/30/21 at 1515, STAT NaCl 0.9% 2021- No 1000mL at 999 Uni vers (NS) bolus 10-30 mL/hr, ity of infusion 21:15: 20:29 1,000 mL, [place] 1,000 mL 00 :00 IV Medical Infusion, Branch ONCE, 1 dose, On 10/30/21 at 1515, VASILIY iopamidol 0 2021- No [id number] 100mL 100 mL, Univers (ISOVUE 10-30 Intravenou ity o f 370-500 mL) 20:37: 20:35 s, ONCE, 1 [place] injection 00 :00 dose, On Medica l 100 mL Wed Branch 10/30/21 at 1445, Routine lisinopril 2021-0 No 1mg 10 mg 2-03 tablet 00:00: 00 amlodipine 2021-0 No 1mg 10 mg 2-03 tablet 00:00: 00 lisinopril 2020-1 No 1mg 10 mg 0-13 tablet 00:00: 00 amlodipine 2020-1 No 1mg 10 mg 0-13 tablet 00:00: 00 NaCl 0.9% 2021-0 2021- No 1000mL at [...] [place] 05/23/21 at 2200, STAT NaCl 0.9% 2021-0 2021- No 1000mL at 999 Uni vers (NS) bolus 9-10 09-10 mL/hr, ity of infusion 03:00: 03:00 1,000 mL, [place] 1,000 mL 00 :00 IV Medical Piggyback, Branch ONCE, 1 dose, [place] 05/23/21 at 2200, STAT NaCl 0.9% 2021-0 2021- No 500mL at 999 Univ ers (NS) bolus 9- 09-09 mL/hr, 500 it y of infusion 03:15: 15:14 mL, IV [place] 500 mL 00 :00 Piggyback, Medical ONCE, 1 Branch dose, 05/22/21 at 2215, STAT NaCl 0.9% 2020- No 500mL at 999 Univ ers (NS) bolus 05-23 09-09 mL/hr, 500 it y of infusion 03:15: 15:14 mL, IV [place] 500 mL 00 :00 Piggyback, Medical ONCE, 1 Branch dose, 05/22/21 at 2215, STAT dexamethaso 2020- No 10mg 10 mg, Uni vers ne 04-02- Intramuscu ity of (DECADRON 03:30: 02:47 lar, [...] Restricted medication : EMERGENCY ROOM, ibuprofen Yes [id number] 800mg Take 1 Univers 800 mg 7-04 tablet by ity of tablet 00:00: mouth [place] 00 every 8 Medical (eight) Branch hours as needed for Pain (scale 4-6). ibuprofen Yes [id number] 800mg Take 1 Univers 800 mg 7-04 tablet by ity of tablet 00:00: mouth [place] 00 every 8 Medical (eight) Branch hours as needed for Pain (scale 4-6). ibuprofen 0 Yes [id number] 800mg Take 1 Univers 800 mg 7-04 tablet by ity of tablet 00:00: mouth [place] 00 every 8 Medical (eight) Branch hours as needed for Pain (scale 4-6). ibuprofen 2020-0 Yes [id number] 800mg Take 1 Univers 800 mg 7-04 tablet by ity of tablet 00:00: mouth [place] 00 every 8 Medical (eight) Branch hours as needed for Pain (scale 4-6). ibuprofen 0 Yes [id number] 800mg Take 1 Univers 800 mg 7-04 tablet by ity of tablet 00:00: mouth [place] 00 every 8 Medical (eight) Branch hours as needed for Pain (scale 4-6). ibuprofen Yes [id number] 800mg Take 1 Univers 800 mg 7-04 tablet by ity of tablet 00:00: mouth [place] 00 every 8 Medical (eight) Branch hours as needed for Pain (scale 4-6). ibuprofen 2020- No [id number] 800mg Take 1 Univers 800 mg 7-12 21-09 tablet by ity of tablet 00:00: 00:00 mouth [place] 00 :00 every 8 Medical (eight) Branch hours as needed for Pain (scale 4-6). ibuprofen 2020- No [id number] 800mg Take 1 Univers 800 mg 7-12 21- tablet by ity of tablet 00:00: 00:00 mouth [place] 00 :00 every 8 Medical (eight) Branch hours as needed for Pain (scale 4-6). acetaminoph 2020- No [id number] 1{tbl} Take 1 U nivers en-codeine 7-12 19-12 tablet by ity of 300-30 mg [...] ical mg 11/14/20 at Branch 2300, Routine Dose 0 No Unknown 3-03 00:00: 00 Dose 2020-0 No Unknown 3-03 00:00: 00 Dose 2020-0 No Unknown 3-03 00:00: 00 Dose 2020-0 No Unknown 3-03 00:00: 00 benzonatate 2020-0 Yes [id number] 100mg Take 1 Univers 100 mg 3-03 capsule by ity of capsule 00:00: mouth 3 [place] 00 (three) Medical times Branch daily as needed for Cough. benzonatate 2020-0 Yes [id number] 100mg Take 1 Univers 100 mg 3-03 capsule by ity of capsule 00:00: mouth 3 [place] 00 (three) Medical times Branch daily as needed for Cough. benzonatate Yes [id number] 100mg Take 1 Univers 100 mg 3-03 capsule by ity of capsule 00:00: mouth 3 [place] 00 (three) Medical times Branch daily as needed for Cough. benzonatate Yes [id number] 100mg Take 1 Univers 100 mg 3-03 capsule by ity of capsule 00:00: mouth 3 [place] 00 (three) Medical times Branch daily as needed for Cough. benzonatate Yes [id number] 100mg Take 1 [facility] 100 mg 3-03 capsule by ity of capsule 00:00: mouth 3 [place] 00 (three) Medical times Branch daily as needed for Cough. benzonatate Yes [id number] 100mg Take 1 [facility] 100 mg 3-03 capsule by ity of capsule 00:00: mouth 3 [place] 00 (three) Medical times Branch daily as needed for Cough. benzonatate 2020- No [id number] 100mg Take 1 [facility] 100 mg 3-03 09-09 capsule by ity of capsule 00:00: 00:00 mouth 3 [place] 00 :00 (three) Medical times Branch daily as needed for Cough. benzonatate 2020- No [id number] 100mg Take 1 Univers 100 mg 3-03 09-09 capsule by ity of capsule 00:00: 00:00 mouth 3 [place] 00 :00 (three) Medical times Branch daily as needed for Cough. diphenhydrA 2020- No 25mg 25 mg, Uni vers MINE 09-30 Slow IV ity of (BENADRYL) 16:00: 15:17 Push, [place] injection 00 :00 ONCE, 1 Medical 25 mg dose, [place] Branch 09/30/20 at 1000, STAT metoclopram 2020- No 10mg 10 mg, Uni vers jerilyn HCl 09-30 Slow IV ity of (REGLAN) 16:00: 15:17 Push, [place] injection 00 :00 ONCE, 1 Medical 10 mg dose, [place] Branch 09/30/20 at 1000, VASILIY NaCl 0.9% 2020- No 1000mL at 999 Uni vers (NS) bolus 09-30 mL/hr, ity of infusion 15:00: 16:45 1,000 mL, [place] 1,000 mL 00 :00 IV Medical Infusion, Branch ONCE, 1 dose, 09/30/20 at 0900, VASILIY amLODIPine 2020-0 Yes [id number] 10mg Take 1 Univers (NORVASC) 1-17 tablet by ity o f 10 mg 00:00: mouth [place] tablet 00 daily. Medical Branch amLODIPine 2020-0 Yes [id number] 10mg Take 1 Univers (NORVASC) 1-17 tablet by ity o f 10 mg 00:00: mouth [place] tablet 00 daily. Medical Branch lisinopriL 2020-0 Yes [id number] 10mg Take 1 Univers 10 mg 1-17 tablet by ity of tablet 00:00: mouth at [place] 00 bedtime. Medical Branch amLODIPine 2020-0 Yes [id number] 10mg Take 1 Univers (NORVASC) 1-17 tablet by ity o f 10 mg 00:00: mouth [place] tablet 00 daily. Medical Branch lisinopriL 2020-0 Yes [id number] 10mg Take 1 Univers 10 mg 1-17 tablet by ity of tablet 00:00: mouth at [place] 00 bedtime. Medical Branch amLODIPine 2020-0 Yes [id number] 10mg Take 1 Univers (NORVASC) 1-17 tablet by ity o f 10 mg 00:00: mouth [place] tablet 00 daily. Medical Branch lisinopriL 2020-0 Yes [id number] 10mg Take 1 Univers 10 mg 1-17 tablet by ity of tablet 00:00: mouth at [place] 00 bedtime. Medical Branch amLODIPine 2020-0 Yes [id number] 10mg Take 1 Univers (NORVASC) 1-17 tablet by ity o f 10 mg 00:00: mouth [place] tablet 00 daily. Medical Branch lisinopriL 2020-0 Yes [id number] 10mg Take 1 Univers 10 mg 1-17 tablet by ity of tablet 00:00: mouth at [place] 00 bedtime. Medical Branch amLODIPine 2020-0 Yes [id number] 10mg Take 1 Univers (NORVASC) 1-17 tablet by ity o f 10 mg 00:00: mouth [place] tablet 00 daily. Medical Branch lisinopriL 2020-0 Yes [id number] 10mg Take 1 Univers 10 mg 1-17 tablet by ity of tablet 00:00: mouth at [place] 00 bedtime. Medical Branch amLODIPine Yes [id number] 10mg Take 1 Univers (NORVASC) 1-17 tablet by ity o f 10 mg 00:00: mouth [place] tablet 00 daily. Medical Branch lisinopriL 0 Yes [id number] 10mg Take 1 Univers 10 mg 1-17 tablet by ity of tablet 00:00: mouth at [place] 00 bedtime. Medical Branch amLODIPine 0 Yes [id number] 10mg Take 1 Univers (NORVASC) 1-17 tablet by ity o f 10 mg 00:00: mouth [place] tablet 00 daily. Medical Branch lisinopriL Yes [id number] 10mg Take 1 Univers 10 mg 1-17 tablet by ity of tablet 00:00: mouth at [place] 00 bedtime. Medical Branch amLODIPine Yes [id number] 10mg Take 1 Univers (NORVASC) 1-17 tablet by ity o f 10 mg 00:00: mouth [place] tablet 00 daily. Medical Branch lisinopriL Yes [id number] 10mg Take 1 Univers 10 mg 1-17 tablet by ity of tablet 00:00: mouth at [place] 00 bedtime. Medical Branch amLODIPine Yes [id number] 10mg Take 1 Univers (NORVASC) 1-17 tablet by ity o f 10 mg 00:00: mouth [place] tablet 00 daily. Medical Branch lisinopriL Yes [id number] 10mg Take 1 Univers 10 mg 1-17 tablet by ity of tablet 00:00: mouth at [place] 00 bedtime. Medical Branch amLODIPine Yes [id number] 10mg Take 1 Univers (NORVASC) 1-17 tablet by ity o f 10 mg 00:00: mouth [place] tablet 00 daily. Medical Branch lisinopriL 0 Yes [id number] 10mg Take 1 Univers 10 mg 1-17 tablet by ity of tablet 00:00: mouth at [place] 00 bedtime. Medical Branch amLODIPine Yes [id number] 10mg Take 1 Univers (NORVASC) 1-17 tablet by ity o f 10 mg 00:00: mouth [place] tablet 00 daily. Medical Branch amLODIPine Yes [id number] 10mg Take 1 Univers (NORVASC) 1-17 tablet by ity o f 10 mg 00:00: mouth [place] tablet 00 daily. Medical Branch amLODIPine Yes [id number] 10mg Take 1 Univers (NORVASC) 1-17 tablet by ity o f 10 mg 00:00: mouth [place] tablet 00 daily. Medical Branch amLODIPine Yes [id number] 10mg Take 1 Univers (NORVASC) 1-17 tablet by ity o f 10 mg 00:00: mouth [place] tablet 00 daily. Medical Branch lisinopriL Yes [id number] 10mg Take 1 [facility] 10 mg 1-17 tablet by ity of tablet 00:00: mouth at [place] 00 bedtime. Medical Branch amLODIPine Yes [id number] 10mg Take 1 Univers (NORVASC) 1-17 tablet by ity o f 10 mg 00:00: mouth [place] tablet 00 daily. Medical Branch amLODIPine Yes [id number] 10mg Take 1 Univers (NORVASC) 1-17 tablet by ity o f 10 mg 00:00: mouth [place] tablet 00 daily. Medical Branch amLODIPine Yes [id number] 10mg Take 1 Univers (NORVASC) 1-17 tablet by ity o f 10 mg 00:00: mouth [place] tablet 00 daily. Medical Branch amLODIPine Yes [id number] 10mg Take 1 Univers (NORVASC) 1-17 tablet by ity o f 10 mg 00:00: mouth [place] tablet 00 daily. Medical Branch amLODIPine Yes [id number] 10mg Take 1 Univers (NORVASC) 1-17 tablet by ity o f 10 mg 00:00: mouth [place] tablet 00 daily. Medical Branch amLODIPine Yes [id number] 10mg Take 1 Univers (NORVASC) 1-17 tablet by ity o f 10 mg 00:00: mouth [place] tablet 00 daily. Medical Branch lisinopriL Yes [id number] 10mg Take 1 Univers 10 mg 1-17 tablet by ity of tablet 00:00: mouth at [place] 00 bedtime. Medical Branch amLODIPine Yes [id number] 10mg Take 1 Univers (NORVASC) 1-17 tablet by ity o f 10 mg 00:00: mouth [place] tablet 00 daily. Medical Branch amLODIPine Yes [id number] 10mg Take 1 Univers (NORVASC) 1-17 tablet by ity o f 10 mg 00:00: mouth [place] tablet 00 daily. Medical Branch amLODIPine Yes [id number] 10mg Take 1 Univers (NORVASC) 1-17 tablet by ity o f 10 mg 00:00: mouth [place] tablet 00 daily. Medical Branch amLODIPine Yes [id number] 10mg Take 1 Univers (NORVASC) 1-17 tablet by ity o f 10 mg 00:00: mouth [place] tablet 00 daily. Medical Branch amLODIPine Yes [id number] 10mg Take 1 Univers (NORVASC) 1-17 tablet by ity o f 10 mg 00:00: mouth [place] tablet 00 daily. Medical Branch amLODIPine Yes [id number] 10mg Take 1 Univers (NORVASC) 1-17 tablet by ity o f 10 mg 00:00: mouth [place] tablet 00 daily. Medical Branch amLODIPine Yes [id number] 10mg Take 1 Univers (NORVASC) 1-17 tablet by ity o f 10 mg 00:00: mouth [place] tablet 00 daily. Medical Branch amLODIPine Yes [id number] 10mg Take 1 Univers (NORVASC) 1-17 tablet by ity o f 10 mg 00:00: mouth [place] tablet 00 daily. Medical Branch amLODIPine Yes [id number] 10mg Take 1 Univers (NORVASC) 1-17 tablet by ity o f 10 mg 00:00: mouth [place] tablet 00 daily. Medical Branch lisinopriL Yes [id number] 10mg Take 1 Univers 10 mg 1-17 tablet by ity of tablet 00:00: mouth at [place] 00 bedtime. [facility] amLODIPine Yes [id number] 10mg Take 1 Univers (NORVASC) 1-17 tablet by ity o f 10 mg 00:00: mouth [place] tablet 00 daily. [facility] amLODIPine Yes [id number] 10mg Take 1 Univers (NORVASC) 1-17 tablet by ity o f 10 mg 00:00: mouth [place] tablet 00 daily. [facility] amLODIPine Yes [id number] 10mg Take 1 Univers (NORVASC) 1-17 tablet by ity o f 10 mg 00:00: mouth [place] tablet 00 daily. [facility] amLODIPine Yes [id number] 10mg Take 1 Univers (NORVASC) 1-17 tablet by ity o f 10 mg 00:00: mouth [place] tablet 00 daily. [facility] amLODIPine Yes [id number] 10mg Take 1 Univers (NORVASC) 1-17 tablet by ity o f 10 mg 00:00: mouth [place] tablet 00 daily. [facility] amLODIPine Yes [id number] 10mg Take 1 Univers (NORVASC) 1-17 tablet by ity o f 10 mg 00:00: mouth [place] tablet 00 daily. [facility] amLODIPine Yes [id number] 10mg Take 1 Univers (NORVASC) 1-17 tablet by ity o f 10 mg 00:00: mouth [place] tablet 00 daily. [facility] amLODIPine Yes [id number] 10mg Take 1 Univers (NORVASC) 1-17 tablet by ity o f 10 mg 00:00: mouth [place] tablet 00 daily. [facility] amLODIPine Yes [id number] 10mg Take 1 Univers (NORVASC) 1-17 tablet by ity o f 10 mg 00:00: mouth [place] tablet 00 daily. [facility] lisinopriL 2021- No [id number] 10mg Take 1 Univers 10 mg 1-17 02-18 tablet by ity of tablet 00:00: 00:00 mouth at [place] 00 :00 bedtime. [facility] Dose 2019-09 No Unknown 0-30 00:00: 00 Dose 2019-09 No Unknown 0-30 00:00: 00 maalox:diph 2019-09 2020- No 15mL 15 mL, Uni vers enhydrAMINE 0-19 10-19 Oral, ity of :lidocaine 03:30: 03:30 ONCE, 1 Jim as 2 % viscous 00 :00 dose, [facility] 1:1:1 07/01/20 Branch ([facility] at 2230, [facility]) VASILIY oral suspension 15 mL sodium 2019-09 Yes 5mL 5 mL, Univers chloride 0-19 Intravenou ity o f (NS) 03:00: s, PRN, [place] injection 5 48 Starting [facility] 07/01/20 at 2200, Until Discontinu ed, Routine, IV line flushing sucralfate 2020-1 2020- No [id number] 1g Take 1 Univers 1 gram 0-18 07-16 tablet by ity of tablet 00:00: 05:59 [...] No known No Univers medications ity of [facility] Immunizations Ordered Filled Date Status Comments Source Immunization Name Immunization Name SARS-COV-2 COVID-19 2021-05-07 Completed Unive rsity of PFIZER VACCINE 00:00:00 [facility] SARS-COV-2 COVID-19 2021-05-07 Completed Unive rsity of PFIZER VACCINE 00:00:00 [facility] SARS-COV-2 COVID-19 2021-05-07 Completed Unive rsity of PFIZER VACCINE 00:00:00 [facility] SARS-COV-2 COVID-19 2021-05-07 Completed Unive rsity of PFIZER VACCINE 00:00:00 [facility] SARS-COV-2 COVID-19 2021-05-07 Completed Unive rsity of PFIZER VACCINE 00:00:00 [facility] SARS-COV-2 COVID-19 2021-05-07 Completed Unive rsity of PFIZER VACCINE 00:00:00 [facility] SARS-COV-2 COVID-19 2021-05-07 Completed Unive rsity of PFIZER VACCINE 00:00:00 [facility] SARS-COV-2 COVID-19 2021-05-07 Completed Unive rsity of PFIZER VACCINE 00:00:00 [facility] SARS-COV-2 COVID-19 2021-05-07 Completed Unive rsity of PFIZER VACCINE 00:00:00 [facility] SARS-COV-2 COVID-19 2021-05-07 Completed Unive rsity of PFIZER VACCINE 00:00:00 [facility] SARS-COV-2 COVID-19 2021-05-07 Completed Unive rsity of PFIZER VACCINE 00:00:00 [facility] SARS-COV-2 COVID-19 2021-05-07 Completed Unive rsity of PFIZER VACCINE 00:00:00 [facility] SARS-COV-2 COVID-19 2021-05-07 Completed Unive rsity of PFIZER VACCINE 00:00:00 [facility] SARS-COV-2 COVID-19 2021-05-07 Completed Unive rsity of PFIZER VACCINE 00:00:00 [facility] SARS-COV-2 COVID-19 2021-05-07 Completed Unive rsity of PFIZER VACCINE 00:00:00 [facility] SARS-COV-2 COVID-19 2021-05-07 Completed Unive rsity of PFIZER VACCINE 00:00:00 [facility] SARS-COV-2 COVID-19 2021-05-07 Completed Unive rsity of PFIZER VACCINE 00:00:00 [facility] SARS-COV-2 COVID-19 2021-05-07 Completed Unive rsity of PFIZER VACCINE 00:00:00 [facility] SARS-COV-2 COVID-19 2021-05-07 Completed Unive rsity of PFIZER VACCINE 00:00:00 [facility] SARS-COV-2 COVID-19 2021-05-07 Completed Unive rsity of PFIZER VACCINE 00:00:00 [facility] SARS-COV-2 COVID-19 2021-05-07 Completed Unive rsity of PFIZER VACCINE 00:00:00 [facility] SARS-COV-2 COVID-19 2021-05-07 Completed Unive rsity of PFIZER VACCINE 00:00:00 [facility] SARS-COV-2 COVID-19 2021-05-07 Completed Unive rsity of PFIZER VACCINE 00:00:00 [facility] SARS-COV-2 COVID-19 2021-05-07 Completed Unive rsity of PFIZER VACCINE 00:00:00 [facility] SARS-COV-2 COVID-19 2021-05-07 Completed Unive rsity of PFIZER VACCINE 00:00:00 [facility] SARS-COV-2 COVID-19 Unknown Completed Unive rsity of PFIZER VACCINE [facility] SARS-COV-2 COVID-19 Unknown Completed Unive rsity of PFIZER VACCINE [facility] SARS-COV-2 COVID-19 Unknown Completed Unive rsity of PFIZER VACCINE [facility] SARS-COV-2 COVID-19 Unknown Completed Unive rsity of PFIZER VACCINE [facility] SARS-COV-2 COVID-19 Unknown Completed Unive rsity of PFIZER VACCINE [facility] SARS-COV-2 COVID-19 Unknown Completed Unive rsity of PFIZER VACCINE [facility] SARS-COV-2 COVID-19 Unknown Completed Unive rsity of PFIZER VACCINE [facility] Vital Signs Vital Name Observation Time Observation Value Comments Source Systolic blood 2023-07-12 03:30:00 156 mm[Hg] Univer sity of pressure [facility] Diastolic blood 2023-07-12 03:30:00 101 mm[Hg] Unive rsity of [facility] Heart rate 2023-07-12 03:30:00 90 /min [facility] Respiratory rate 2023-07-12 03:30:00 20 /min [facility] O[facility] in 2023-07-12 03:30:00 94 /min [facility] Arterial blood by [facility] Pulse oximetry [place] Body temperature 2023-07-12 01:57:00 36.67 Cindi [facility] Body weight 2023-07-12 01:57:00 115.667 kg [facility] BMI 2023-07-12 01:57:00 30.24 kg/m2 [facility] Systolic blood 2023-07-10 13:34:00 140 mm[Hg] Univer sity of [facility] Diastolic blood 2023-07-10 13:34:00 95 mm[Hg] Unive rsity of pressure [facility] Heart rate 2023-07-10 13:34:00 76 /min [facility] Body temperature 2023-07-10 13:34:00 35.94 Cindi [facility] Body height 2023-07-10 13:34:00 195.6 cm [facility] Body weight 2023-07-10 13:34:00 118.298 kg [facility] [place] [facility] BMI 2023-07-10 13:34:00 30.93 kg/m2 [facility] [place] [facility] Oxygen saturation in 2023-07-10 13:34:00 97 /min University of Arterial blood by [facility] Pulse oximetry Branch Systolic blood 2023-07-08 13:43:00 140 mm[Hg] Luz Maria Seybold - pressure External Diastolic blood 2023-07-08 13:43:00 100 mm[Hg] Sallie y Seybold - pressure External Heart rate 2023-07-08 13:43:00 68 /min Luz Maria S eybold - External Body temperature 2023-07-08 13:43:00 36.67 Cindi Kelsi hampton Seybold - External Respiratory rate 2023-07-08 13:43:00 16 /min Kelsi hampton Seybold - External Body height 2023-07-08 13:43:00 195.6 cm Luz Maria S eybold - External Body weight 2023-07-08 13:43:00 116.121 kg Luz Maria S eybold - External BMI 2023-07-08 13:43:00 30.36 kg/m2 Luz Maria S eybold - External Systolic blood 2023-07-03 12:45:10 149 mm[Hg] Univer [facility]ity of [facility] [place] Diastolic blood 2023-07-03 12:45:10 88 mm[Hg] Unive rsity of pressure [facility] [place] Heart rate 2023-07-03 12:45:10 88 /min [facility]i ty [facility] [place] [facility] [place] Respiratory rate 2023-07-03 12:45:10 16 /min Univ ersity [facility] [place] [facility] Oxygen saturation in 2023-07-03 12:45:10 97 /min University of Arterial blood by [facility] Pulse oximetry Branch Body temperature 2023-07-03 09:47:00 36.78 Cindi Univ ersity [facility] [place] [facility] Body height 2023-07-03 09:47:00 195.6 cm [facility] [place] [facility] Body weight 2023-07-03 09:47:00 113.853 kg [facility] [place] [facility] BMI 2023-07-03 09:47:00 29.76 kg/m2 [facility] [place] [facility] Systolic blood 2023-05-20 20:08:00 132 mm[Hg] Luz Maria Ng - pressure External Diastolic blood 2023-05-20 20:08:00 84 mm[Hg] Sallie Ng - pressure External Heart rate 2023-05-20 20:08:00 76 /min Luz Maria hamptonbold - External Body temperature 2023-05-20 20:08:00 37 Cindi Kelsi hampton Seybfarooq - External Respiratory rate 2023-05-20 20:08:00 16 /min Kelsi Ng - External Body height 2023-05-20 20:08:00 195.6 cm Luz Maria hamptonbold - External Body weight 2023-05-20 20:08:00 116.121 kg Luz Maria hamptonbowin - External BMI 2023-05-20 20:08:00 30.36 kg/m2 Luz Maria hamptonbold - External Systolic blood 2023-05-08 03:30:00 133 mm[Hg] Univer sity of pressure [place] [facility] Diastolic blood 2023-05-08 03:30:00 87 mm[Hg] Unive rsity of pressure [facility] Heart rate 2023-05-08 03:30:00 70 /min [facility] [place] [facility] Respiratory rate 2023-05-08 03:30:00 18 /min Univ ersity [facility] [place] [facility] Oxygen saturation in 2023-05-08 03:30:00 97 /min University of Arterial blood by [facility] Pulse oximetry Branch Body temperature 2023-05-07 22:36:00 36.72 Cindi Univ ersity [facility] [place] [facility] Body weight 2023-05-07 22:36:00 113.853 kg [facility] [place] [facility] BMI 2023-05-07 22:36:00 30.55 kg/m2 [facility] [place] [facility] Systolic blood 2023-05-02 05:00:00 134 mm[Hg] Univer sity of pressure [facility] Diastolic blood 2023-05-02 05:00:00 85 mm[Hg] Unive rsity of pressure [facility] Heart rate 2023-05-02 05:00:00 72 /min [facility] [place] [facility] Oxygen saturation in 2023-05-02 05:00:00 98 /min [facility] Arterial blood by [place] [facility] Pulse oximetry Branch Body temperature 2023-05-02 02:28:00 37.28 Cindi Univ ersity of [place] [facility] Respiratory rate 2023-05-02 02:28:00 20 /min Univ ersity [facility] [place] [facility] Body height 2023-05-02 02:28:00 193 cm [facility] [place] [facility] Body weight 2023-05-02 02:28:00 113.399 kg [facility] [place] [facility] BMI 2023-05-02 02:28:00 30.43 kg/m2 [facility] [place] [facility] Systolic blood 2023-04-22 18:02:36 130 mm[Hg] Univer sity of pressure [facility] Diastolic blood 2023-04-22 18:02:36 80 mm[Hg] Unive rsity of pressure [facility] Heart rate 2023-04-22 18:02:36 68 /min [facility] [place] [facility] Body temperature 2023-04-22 18:02:36 36.78 Cindi Univ ersity [facility] [place] [facility] Respiratory rate 2023-04-22 18:02:36 17 /min Univ ersity of [place] [facility] Oxygen saturation in 2023-04-22 18:02:36 96 /min [facility] of Arterial blood by [facility] Pulse oximetry Branch Body height 2023-04-22 08:58:00 195.6 cm [facility] [place] [facility] Body weight 2023-04-22 08:58:00 113.944 kg [facility] [place] [facility] BMI 2023-04-22 08:58:00 29.79 kg/m2 [facility] [place] [facility] Systolic blood 2023-04-16 13:30:00 142 mm[Hg] Univer sity of pressure [facility] Diastolic blood 2023-04-16 13:30:00 98 mm[Hg] Unive rsity of pressure [facility] Heart rate 2023-04-16 13:30:00 65 /min [facility] [place] [facility] Respiratory rate 2023-04-16 13:30:00 17 /min Univ ersity of [place] [facility] Oxygen saturation in 2023-04-16 13:30:00 98 /min [facility] of Arterial blood by [facility] Pulse oximetry Branch Systolic blood 2023-04-16 12:32:00 155 mm[Hg] Univer sity of pressure [facility] Diastolic blood 2023-04-16 12:32:00 108 mm[Hg] Unive rsity of pressure [place] [facility] Heart rate 2023-04-16 12:32:00 61 /min [facility] [place] [facility] Respiratory rate 2023-04-16 12:32:00 18 /min Univ ersity of [place] [facility] Oxygen saturation in 2023-04-16 12:32:00 97 /min [facility] of Arterial blood by [facility] Pulse oximetry Branch Body temperature 2023-04-16 12:09:00 36.72 Cindi Univ ersity [facility] [place] [facility] Body weight 2023-04-16 12:09:00 118.842 kg [facility] [place] [facility] BMI 2023-04-16 12:09:00 31.89 kg/m2 [facility] [place] [facility] Systolic blood 2023-04-01 08:00:00 130 mm[Hg] Univer sity of pressure [place] [facility] Diastolic blood 2023-04-01 08:00:00 75 mm[Hg] Unive rsity of pressure [place] [facility] Heart rate 2023-04-01 08:00:00 75 /min [facility] [place] [facility] Respiratory rate 2023-04-01 08:00:00 19 /min Univ ersity of [place] [facility] Oxygen saturation in 2023-04-01 08:00:00 96 /min [facility] of Arterial blood by [facility] Pulse oximetry Branch Body temperature 2023-04-01 05:02:00 36.28 Cindi Univ ersity of [place] [facility] Body height 2023-04-01 05:02:00 193 cm [facility] [place] [facility] Body weight 2023-04-01 05:02:00 111.585 kg [facility] [place] [facility] BMI 2023-04-01 05:02:00 29.94 kg/m2 [facility] [place] [facility] Systolic blood 2023-02-13 21:00:00 157 mm[Hg] Univer sity of pressure [place] [facility] Diastolic blood 2023-02-13 21:00:00 89 mm[Hg] Unive rsity of pressure [facility] Heart rate 2023-02-13 21:00:00 102 /min [facility] [place] [facility] Body temperature 2023-02-13 21:00:00 37.89 Cidni Univ ersity of [place] [facility] Respiratory rate 2023-02-13 21:00:00 16 /min Univ ersity of [place] [facility] Body weight 2023-02-13 21:00:00 124.286 kg [facility] [place] [facility] BMI 2023-02-13 21:00:00 33.35 kg/m2 [facility] [place] [facility] Oxygen saturation in 2023-02-13 21:00:00 97 /min [facility] of Arterial blood by [facility] amy Pulse oximetry Branch Systolic blood 2022-12-09 06:33:00 152 mm[Hg] Univer sity of pressure [place] [facility] Diastolic blood 2022-12-09 06:33:00 96 mm[Hg] Unive rsity of pressure [facility] Heart rate 2022-12-09 06:33:00 60 /min [facility] [place] [facility] Respiratory rate 2022-12-09 06:33:00 11 /min Univ ersity of [place] [facility] Oxygen saturation in 2022-12-09 06:33:00 96 /min [facility] of Arterial blood by [facility] Pulse oximetry Branch Body temperature 2022-12-09 04:51:00 37 Icndi Univ ersity of [place] [facility] Body height 2022-12-09 04:51:00 193 cm [facility] [place] [facility] Body weight 2022-12-09 04:51:00 116.121 kg [facility] [place] [facility] BMI 2022-12-09 04:51:00 31.16 kg/m2 [facility] [place] [facility] Systolic blood 2022-11-25 04:51:00 148 mm[Hg] Univer sity of pressure [facility] Diastolic blood 2022-11-25 04:51:00 96 mm[Hg] Unive rsity of pressure [facility] Heart rate 2022-11-25 04:51:00 71 /min [facility] [place] [facility] Body temperature 2022-11-25 04:51:00 37 Cindi Univ ersity [facility] [place] [facility] Respiratory rate 2022-11-25 04:51:00 16 /min Univ ersity of [place] [facility] Body height 2022-11-25 04:51:00 193 cm [facility] [place] [facility] Body weight 2022-11-25 04:51:00 113.399 kg [facility] [place] [facility] BMI 2022-11-25 04:51:00 30.43 kg/m2 [facility] [place] [facility] Oxygen saturation in 2022-11-25 04:51:00 97 /min University of Arterial blood by [facility] Pulse oximetry Branch Systolic blood 2022-10-12 21:48:00 152 mm[Hg] Univer sity of pressure [facility] Diastolic blood 2022-10-12 21:48:00 82 mm[Hg] Unive rsity of pressure [facility] Heart rate 2022-10-12 21:48:00 70 /min [facility] [place] [facility] Body temperature 2022-10-12 21:48:00 36.89 Cindi Univ ersity [facility] [place] [facility] Respiratory rate 2022-10-12 21:48:00 18 /min Univ ersity of [place] [facility] Oxygen saturation in 2022-10-12 21:48:00 94 /min [facility] of Arterial blood by [facility] Pulse oximetry Branch Body height 2022-10-11 17:50:00 193 cm [facility] [place] [facility] Body weight 2022-10-11 17:50:00 113.399 kg [facility] [place] [facility] BMI 2022-10-11 17:50:00 30.43 kg/m2 [facility] [place] [facility] Systolic blood 2022-10-09 07:25:23 138 mm[Hg] Univer sity of pressure [facility] Diastolic blood 2022-10-09 07:25:23 86 mm[Hg] Unive rsity of pressure [facility] Heart rate 2022-10-09 07:25:23 73 /min [facility] [place] [facility] Respiratory rate 2022-10-09 07:25:23 20 /min Univ ersity of [place] [facility] Oxygen saturation in 2022-10-09 07:25:23 98 /min [facility] of Arterial blood by [facility] Pulse oximetry Branch Body temperature 2022-10-09 04:12:00 37.28 Cindi Univ ersity [facility] [place] [facility] Body height 2022-10-09 04:12:00 193 cm [facility] [place] [facility] Body weight 2022-10-09 04:12:00 113.399 kg [facility] [place] [facility] BMI 2022-10-09 04:12:00 30.43 kg/m2 [facility] [place] [facility] Systolic blood 2022-08-20 14:40:00 147 mm[Hg] Univer sity of pressure [facility] Diastolic blood 2022-08-20 14:40:00 95 mm[Hg] Unive rsity of [facility] Heart rate 2022-08-20 14:40:00 75 /min Universi ty of [facility] Body temperature 2022-08-20 14:40:00 36.89 Cindi Univ ersity of [facility] Respiratory rate 2022-08-20 14:40:00 20 /min [facility] Body height 2022-08-20 14:40:00 190.5 cm Universi ty of [facility] Body weight 2022-08-20 14:40:00 115.667 kg Universi ty [facility] BMI 2022-08-20 14:40:00 31.87 kg/m2 [facility] Oxygen saturation in 2022-08-20 14:40:00 98 /min [facility] Arterial blood by [facility] Pulse oximetry Branch height 2022-07-11 09:30:00 77 [in_i] [facility] weight 2022-07-11 09:30:00 253.6 [lb_av] Common [facility] temperature 2022-07-11 09:30:00 98.3 [degF] [facility] bmi 2022-07-11 09:30:00 30.07 kg/m2 [facility] oximetry 2022-07-11 09:30:00 99 % [facility] respiratory rate 2022-07-11 09:30:00 18 /min Comm on [facility] blood pressure 2022-07-11 09:30:00 135 mm[Hg] Common [facility] - systolic [facility] blood pressure 2022-07-11 09:30:00 81 mm[Hg] Common [facility] - diastolic [facility] Systolic blood 2022-06-09 15:00:00 141 mm[Hg] Univer sity of [facility] Diastolic blood 2022-06-09 15:00:00 94 mm[Hg] Unive rsity of [facility] Heart rate 2022-06-09 15:00:00 59 /min [facility] [place] [facility] Respiratory rate 2022-06-09 15:00:00 16 /min Univ ersity [facility] [place] [facility] Oxygen saturation in 2022-06-09 15:00:00 97 /min [facility] of Arterial blood by [facility] Pulse oximetry Branch Body temperature 2022-06-09 11:56:00 36.17 Cindi Univ ersity [facility] [place] [facility] Body height 2022-06-09 11:56:00 195.6 cm [facility] [place] [facility] Body weight 2022-06-09 11:56:00 127.007 kg [facility] [place] [facility] BMI 2022-06-09 11:56:00 33.20 kg/m2 [facility] [place] [facility] Systolic blood 2021-11-01 17:12:00 152 mm[Hg] Univer sity of pressure [facility] Diastolic blood 2021-11-01 17:12:00 89 mm[Hg] Unive rsity of pressure [facility] Heart rate 2021-11-01 17:12:00 72 /min [facility] [place] [facility] Body temperature 2021-11-01 17:12:00 36.17 Cindi Univ [facility]ity [facility] [place] [facility] Respiratory rate 2021-11-01 17:12:00 18 /min Univ ersity [facility] [place] [facility] Oxygen saturation in 2021-11-01 17:12:00 94 /min [facility] of Arterial blood by [facility] Pulse oximetry Branch Body height 2021-10-30 23:19:00 195.6 cm [facility] [place] [facility] Body weight 2021-10-30 23:19:00 116.983 kg [facility] [place] [facility] BMI 2021-10-30 23:19:00 30.58 kg/m2 [facility] Systolic blood 2021-05-24 06:00:00 135 mm[Hg] Univer sity of pressure [facility] Diastolic blood 2021-05-24 06:00:00 97 mm[Hg] Unive rsity of pressure [facility] Heart rate 2021-05-24 06:00:00 88 /min [facility] Respiratory rate 2021-05-24 06:00:00 21 /min Univ ersity [facility] [place] [facility] Oxygen saturation in 2021-05-24 06:00:00 94 /min [facility] of Arterial blood by [facility] Pulse oximetry Branch Body temperature 2021-05-24 01:47:00 37.28 Cindi Univ [facility]ity [facility] Body height 2021-05-24 01:47:00 195.6 cm [facility] Body weight 2021-05-24 01:47:00 127.461 kg [facility] BMI 2021-05-24 01:47:00 33.32 kg/m2 [facility] Systolic blood 2021-05-22 23:36:00 154 mm[Hg] Univer sity of pressure [facility] Diastolic blood 2021-05-22 23:36:00 112 mm[Hg] Unive rsity of pressure [facility] Heart rate 2021-05-22 23:36:00 97 /min [facility] Body temperature 2021-05-22 23:36:00 36 Cindi Univ [facility]ity [facility] Respiratory rate 2021-05-22 23:36:00 19 /min Univ ersity [facility] Body height 2021-05-22 23:36:00 195.6 cm [facility] Body weight 2021-05-22 23:36:00 127.007 kg [facility] [place] [facility] BMI 2021-05-22 23:36:00 33.20 kg/m2 [facility] Oxygen saturation in 2021-05-22 23:36:00 96 /min [facility] of Arterial blood by [facility] Pulse oximetry Branch Systolic blood 2021-05-02 00:01:00 157 mm[Hg] Univer sity of pressure [facility] Diastolic blood 2021-05-02 00:01:00 93 mm[Hg] Unive rsity of pressure [facility] Heart rate 2021-05-02 00:01:00 84 /min [facility] Body temperature 2021-05-02 00:01:00 36.56 Cindi Univ [facility] Respiratory rate 2021-05-02 00:01:00 18 /min Univ ersity [facility] Body weight 2021-05-02 00:01:00 126.554 kg [facility] BMI 2021-05-02 00:01:00 33.08 kg/m2 [facility] Oxygen saturation in 2021-05-02 00:01:00 97 /min [facility] Arterial blood by [place] [facility] Pulse oximetry [facility] Systolic blood 2021-04-02 01:01:00 144 mm[Hg] Univer sity of pressure [facility] Diastolic blood 2021-04-02 01:01:00 94 mm[Hg] Unive rsity of pressure [facility] Heart rate 2021-04-02 01:01:00 89 /min [facility] Body temperature 2021-04-02 01:01:00 37.06 Cindi Univ [facility] Respiratory rate 2021-04-02 01:01:00 18 /min Univ ersity [facility] Body weight 2021-04-02 01:01:00 129.729 kg [facility] BMI 2021-04-02 01:01:00 33.91 kg/m2 [facility] Oxygen saturation in 2021-04-02 01:01:00 100 /min [facility] Arterial blood by [facility] amy [facility] Systolic blood 2021-04-02 01:01:00 144 mm[Hg] [facility] Diastolic blood 2021-04-02 01:01:00 94 mm[Hg] [facility] Heart rate 2021-04-02 01:01:00 89 /min [facility] Body temperature 2021-04-02 01:01:00 37.06 Cindi [facility] Respiratory rate 2021-04-02 01:01:00 18 /min [facility] Body weight 2021-04-02 01:01:00 129.729 kg [facility] BMI 2021-04-02 01:01:00 33.91 kg/m2 [facility] Oxygen saturation in 2021-04-02 01:01:00 100 /min [facility] blood by [place] [facility] Systolic blood 2021-03-18 03:16:13 140 mm[Hg] [facility] Diastolic blood 2021-03-18 03:16:13 80 mm[Hg] [facility] Heart rate 2021-03-18 03:16:13 80 /min [facility] Body temperature 2021-03-18 03:16:13 36.67 Cindi [facility] Respiratory rate 2021-03-18 03:16:13 19 /min [facility] Oxygen saturation in 2021-03-18 03:16:13 99 /min [facility] Arterial blood by [facility] Pulse oxim[facility] Body weight 2021-03-18 01:02:00 129.729 kg [facility] BMI 2021-03-18 01:02:00 33.91 kg/m2 [facility] Systolic blood 2021-03-18 03:16:13 140 mm[Hg] [facility] Diastolic blood 2021-03-18 03:16:13 80 mm[Hg] [facility] Heart rate 2021-03-18 03:16:13 80 /min [facility] Body temperature 2021-03-18 03:16:13 36.67 Cindi [facility] Respiratory rate 2021-03-18 03:16:13 19 /min [facility] Oxygen saturation in 2021-03-18 03:16:13 99 /min [facility] Arterial blood by [facility] P[facility] o[facility] Body weight 2021-03-18 01:02:00 129.729 kg [facility] BMI 2021-03-18 01:02:00 33.91 kg/m2 [facility] Oxygen saturation in 2020-11-15 04:31:00 97 /min [facility] Arterial blood by [facility] Systolic blood 2020-11-15 03:25:00 173 mm[Hg] [facility] Diastolic blood 2020-11-15 03:25:00 97 mm[Hg] [facility] Heart rate 2020-11-15 03:25:00 84 /min [facility] Body temperature 2020-11-15 03:25:00 36.67 Cindi [facility] Respiratory rate 2020-11-15 03:25:00 20 /min [facility] Body weight 2020-11-15 03:25:00 132.45 kg [facility] BMI 2020-11-15 03:25:00 34.63 kg/m2 [facility] Oxygen saturation in 2020-11-15 04:31:00 97 /min [facility] blood by [place] [facility] Systolic blood 2020-11-15 03:25:00 173 mm[Hg] [facility] Diastolic blood 2020-11-15 03:25:00 97 mm[Hg] [facility] Heart rate 2020-11-15 03:25:00 84 /min [facility] Body temperature 2020-11-15 03:25:00 36.67 Cindi [facility] Respiratory rate 2020-11-15 03:25:00 20 /min [facility] Body weight 2020-11-15 03:25:00 132.45 kg [facility] BMI 2020-11-15 03:25:00 34.63 kg/m2 [facility] Systolic blood 2020-09-30 16:30:00 121 mm[Hg] [facility] Diastolic blood 2020-09-30 16:30:00 66 mm[Hg] [facility] Heart rate 2020-09-30 16:30:00 72 /min [facility] Respiratory rate 2020-09-30 16:30:00 19 /min [facility] Oxygen saturation in 2020-09-30 16:30:00 94 /min [facility] by [place] [facility] Body weight 2020-09-30 14:20:00 136.079 kg [facility] BMI 2020-09-30 14:20:00 35.57 kg/m2 [facility] Body temperature 2020-09-30 14:10:00 37.06 Cindi [facility] Systolic blood 2020-09-30 16:30:00 121 mm[Hg] [facility] Diastolic blood 2020-09-30 16:30:00 66 mm[Hg] [facility] Heart rate 2020-09-30 16:30:00 72 /min [facility] Respiratory rate 2020-09-30 16:30:00 19 /min [facility] Oxygen saturation in 2020-09-30 16:30:00 94 /min [facility] by [place] [facility] Body weight 2020-09-30 14:20:00 136.079 kg [facility] BMI 2020-09-30 14:20:00 35.57 kg/m2 [facility] Body temperature 2020-09-30 14:10:00 37.06 Cindi [facility] Systolic blood 2020-07-02 04:00:00 132 mm[Hg] [facility] Diastolic blood 2020-07-02 04:00:00 84 mm[Hg] [facility] Heart rate 2020-07-02 04:00:00 89 /min [facility] Oxygen saturation in 2020-07-02 04:00:00 95 /min [facility] blood by [place] [facility] [facility] Body temperature 2020-07-02 02:53:00 36.94 Cindi [facility] Respiratory rate 2020-07-02 02:53:00 18 /min [facility] Body height 2020-07-02 02:53:00 195.6 cm [facility] Body weight 2020-07-02 02:53:00 136.079 kg [facility] BMI 2020-07-02 02:53:00 35.57 kg/m2 [facility] Systolic blood 2020-07-02 04:00:00 132 mm[Hg] [facility] Diastolic blood 2020-07-02 04:00:00 84 mm[Hg] [facility] Heart rate 2020-07-02 04:00:00 89 /min [facility] Oxygen saturation in 2020-07-02 04:00:00 95 /min [facility] blood by [place] [facility] [facility] Body temperature 2020-07-02 02:53:00 36.94 Cindi [facility] Respiratory rate 2020-07-02 02:53:00 18 /min [facility] Body height 2020-07-02 02:53:00 195.6 cm [facility] Body weight 2020-07-02 02:53:00 136.079 kg [facility] BMI 2020-07-02 02:53:00 35.57 kg/m2 [facility] BP Systolic 2022-07-09 10:22:00 158 mm[Hg] BP [...] /min Respiratory Rate 2020-11-14 11:12:00 16.00 /min BP Systolic 2020-04-12 16:15:00 130 mm[Hg] BP Diastolic 2020-04-12 16:15:00 91 mm[Hg] Weight Measured 2020-04-12 16:15:00 293.20 pounds Height Measured 2020-04-12 16:15:00 77.00 inches Body Temperature 2020-04-12 16:15:00 97.80 degrees Heart Rate 2020-04-12 16:15:00 91.00 /min Respiratory Rate 2020-04-12 16:15:00 17.00 /min BP Systolic 2020-04-12 15:39:00 130 mm[Hg] BP Diastolic 2020-04-12 15:39:00 91 mm[Hg] Weight Measured 2020-04-12 15:39:00 293.20 pounds Height Measured 2020-04-12 15:39:00 77.00 inches Body Temperature 2020-04-12 15:39:00 97.80 degrees Heart Rate 2020-04-12 15:39:00 91.00 /min Respiratory Rate 2020-04-12 15:39:00 17.00 /min Procedures Procedure Date / Time Performing Clinician Source Performed XR CHEST 2 VW 2023-07-12 03:54:00 Asan Sathya, Stephie [facility] D-DIMER 2023-07-12 02:31:00 Debbie Suarez [facility] TROPONIN I 2023-07-12 02:14:00 Norm Saleh [facility] COMP. METABOLIC PANEL 2023-07-12 02:14:00 Norm Saleh [facility] ([id number]) [facility] CBC WITH DIFF 2023-07-12 02:14:00 Norm Saleh [facility] COVID-19 (ID NOW RAPID 2023-07-12 02:14:00 Norm Saleh [facility] TESTING) Medical Branch CONSENT/REFUSAL FOR 2023-07-12 01:47:09 Doctor Unablessing, [facility] DIAGNOSIS AND TREATMENT [address] Medical Branch CONSENT FOR MEDICAL 2023-07-10 05:01:00 Doctor Andrea [facility] TREATMENT OF A MINOR [address] Medical [facility] CT ABDOMEN PELVIS W 2023-07-03 10:43:57 Hina [facility] URINALYSIS 2023-07-03 10:23:00 Hina [facility] LIPASE 2023-07-03 10:11:00 Hina [facility] COMP. METABOLIC PANEL 2023-07-03 10:11:00 Hina [facility] ([id number]) [facility] CBC WITH DIFF 2023-07-03 10:11:00 Hina [facility] CONSENT/REFUSAL FOR 2023-07-03 09:36:41 Doctor Andrea [facility] DIAGNOSIS AND TREATMENT [address] [facility] [place] CT ABDOMEN PELVIS W 2023-05-08 02:15:59 Riya Joseph [facility] CONTRAST [facility] HB ABO GROUPING 2023-05-08 01:25:00 Riya Joseph [facility] LIPASE 2023-05-08 01:19:00 Riya Joseph [facility] COMP. METABOLIC PANEL 2023-05-08 01:19:00 Riya Joseph [facility] ([id number]) [facility] CBC WITH DIFF 2023-05-08 01:19:00 Riya Joseph [facility] COVID-19 (ID NOW RAPID 2023-05-08 01:19:00 Riya Joseph [facility] TESTING) [facility] CONSENT/REFUSAL FOR 2023-05-07 22:22:14 Doctor Unassigned, [facility] DIAGNOSIS AND TREATMENT [address] Medical Branch LIPASE 2023-05-02 03:01:00 Carlo [facility] COMP. METABOLIC PANEL 2023-05-02 03:01:00 Aydin Matos [facility] ([id number]) Medical Branch ETHANOL 2023-05-02 03:01:00 Carlo [facility] CBC WITH DIFF 2023-05-02 03:01:00 Carlo [facility] URINALYSIS 2023-05-02 03:01:00 Carlo [facility] URINE DRUG (IMMUNOASSAY) 2023-05-02 03:01:00 Aydin Matos [facility] DRUG Medical [facility] nch SCREEN W/O REFLEX CONSENT/REFUSAL FOR 2023-05-02 02:28:20 Doctor Unasschava, [facility] DIAGNOSIS AND TREATMENT [address] [facility] [place] BASIC METABOLIC PANEL 2023-04-22 16:47:00 Natali Alexander [facility] (NA, K, CL, CO2, GLUCOSE, Medica l Branch BUN, CREATININE, CA) LIPASE 2023-04-22 12:58:00 Natali Alexander [facility] BASIC METABOLIC PANEL 2023-04-22 12:58:00 Natali Alexander [facility] (NA, K, CL, CO2, GLUCOSE, Medica l Branch BUN, CREATININE, CA) URINALYSIS 2023-04-22 11:44:00 Abraham Orantes [facility] CREATINE KINASE 2023-04-22 09:06:00 Natali Alexander [facility] [place] LIPASE 2023-04-22 09:06:00 Natali Alexander [facility] COMP. METABOLIC PANEL 2023-04-22 09:06:00 Abraham Orantes [facility] ([id number]) [facility] Branch CBC WITH DIFF 2023-04-22 09:06:00 Abraham Orantes [facility] CONSENT/REFUSAL FOR 2023-04-22 08:52:58 Doctor Andrea [facility] DIAGNOSIS AND TREATMENT [address] Medical Branch LIPASE 2023-04-16 12:30:00 Christa [facility] TROPONIN I 2023-04-16 12:30:00 Christa [facility] COMP. METABOLIC PANEL 2023-04-16 12:30:00 Adelaide Goodwin [facility] ([id number]) [facility] CBC WITH DIFF 2023-04-16 12:30:00 Christa [facility] CONSENT/REFUSAL FOR 2023-04-16 11:48:23 Doctor Andrea [facility] DIAGNOSIS AND TREATMENT [facility] LIPASE 2023-04-01 05:08:00 Morgan [facility] TROPONIN I 2023-04-01 05:08:00 Morgan [facility] COMP. METABOLIC PANEL 2023-04-01 05:08:00 Hemalatha Mora [facility] ([id number]) [facility] CBC WITH DIFF 2023-04-01 05:08:00 Morgan [facility] URINALYSIS 2023-04-01 05:08:00 Morgan [facility] CONSENT/REFUSAL FOR 2023-04-01 04:51:45 Doctor Andrea [facility] DIAGNOSIS AND TREATMENT [facility] ASSIGNMENT OF BENEFITS 2023-02-13 21:19:49 [facility]AUT[facility] 2023-02-13 21:00:00 Jessica Gonzales [facility] CONSENT/REFUSAL FOR 2023-02-13 20:50:30 Doctor Andrea [facility] DIAGNOSIS AND TREATMENT [facility] REFERRAL- 2023-01-05 05:01:00 Doctor Andrea [facility] REQUEST/RESPONSE [address] Medical Branch LIPASE 2022-12-09 05:03:00 Soham Clarke [facility] COMP. METABOLIC PANEL 2022-12-09 05:03:00 Soham Clarke [facility] ([id number]) Medical Branch CBC WITH DIFF 2022-12-09 05:03:00 Soham Clarke [facility] URINALYSIS 2022-12-09 05:03:00 Soham Clarke [facility] NOTICE OF PRIVACY 2022-12-09 04:46:36 Doctor Andrea, [facility] PRACTICES [address] [facility] [place] CONSENT/REFUSAL FOR 2022-12-09 04:46:16 Doctor Andrea, [facility] DIAGNOSIS AND TREATMENT [address] [facility] CT ABDOMEN PELVIS W 2022-11-25 05:38:20 Azam [facility] CONTRAST Medical Branch LIPASE 2022-11-25 05:06:00 Azam [facility] HEPATIC FUNCTION PANEL 2022-11-25 05:06:00 [id number] (ALB,T.PRO,BILI Medical Branch T,BU/BC,ALT,AST,ALK PHOS) BASIC METABOLIC PANEL 2022-11-25 05:06:00 Azam [facility] (NA, K, CL, CO2, GLUCOSE, Medica l Branch BUN, CREATININE, CA) CBC WITH DIFF 2022-11-25 05:06:00 Azam [facility] URINALYSIS 2022-11-25 05:06[facility] 2022-11-25 04:35:51 Doctor Andrea [facility] DIAGNOSIS AND TREATMENT [address] [facility] [place] EXTERNAL PROVIDER RECORDS 2022-10-23 06:01:00 Doctor Andrea [facility] Name Medical Branch CBC WITH DIFF 2022-10-12 21:26:00 Lb Bates [facility] PROSTATIC SPECIFIC 2022-10-12 10:48:00 Jonh Roman [facility] ANTIGEN [facility] HEPATIC FUNCTION PANEL 2022-10-12 10:48:00 [facility] ([id number] (ALB,T.PRO,BIL Medical Branch T,BU/BC,ALT,AST,ALK PHOS) BASIC METABOLIC PANEL 2022-10-12 10:48:00 [facility] (NA, K, CL, CO2, GLUCOSE, Medica l Branch BUN, CREATININE, CA) CBC WITH DIFF 2022-10-12 10:48:00 [facility] 2022-10-11 23:53:00 [facility] ([id number]) (ALB,T.PRO,[facility] Medical Branch T,BU/BC,ALT,AST,ALK PHOS) BASIC METABOLIC PANEL 2022-10-11 23:53:00 [facility] (NA, K, CL, CO2, GLUCOSE, Medica l Branch BUN, CREATININE, CA) US GALL BLADDER 2022-10-11 22:28:58 [facility]LAB 2022-10-11 21:24:00 Lb Bates [facility] ONLY) [facility] URINALYSIS 2022-10-11 21:23:00 Jana [facility] HB ABO GROUPING 2022-10-11 20:41:[facility] CBC WITH DIFF 2022-10-11 20:35[facility] [facility]GIOGRAM 2022-10-11 14:52:00 Aydin Matos [facility] ABDOMEN/PELVIS [facility] HB ECG ROUTINE & RHYTHM 2022-10-11 13:48:04 Carlo Aydin [facility] STRIP [facility] LIPASE 2022-10-11 13:42:00 Carlo [facility] TROPONIN I 2022-10-11 13:42:00 Carlo [facility] COMP. METABOLIC PANEL 2022-10-11 13:42:00 Aydin Matos [facility] ([id number] LIPID PANEL ([id number])(TOTAL 2022-10-11 13:42:00 Lb [facility] CHOLESTEROL, [facility] TRIGLYCERIDES, HDL) CBC WITH DIFF 2022-10-11 13:42:00 Aydin Matos [place] [facility] PROTHROMBIN TIME / INR 2022-10-11 13:42:00 Aydin Matos [facility] ACTIVATED PARTIAL 2022-10-11 13:42:00 Aydin [facility]os [facility] THRMPLAS [facility] N-TERMINAL PRO-BNP 2022-10-11 13:42:00 Aydin Matos [facility] URINE DRUG (IMMUNOASSAY) 2022-10-11 13:42:00 Aydin Matos [facility] nch SCREEN W/O REFLEX CONSENT/REFUSAL FOR 2022-10-11 12:24:48 Doctor Andrea [facility] DIAGNOSIS AND TREATMENT [address] [facility] CT ABDOMEN PELVIS W 2022-10-09 06:30:25 Abraham Orantes [facility] CONTRAST [facility] LIPASE 2022-10-09 05:24:00 Abraham Orantes [facility] COMP. METABOLIC PANEL 2022-10-09 05:24:00 Abraham Orantes [facility] ([id number]) [facility] CBC WITH DIFF 2022-10-09 05:24:00 Abraham Orantes [facility] URINALYSIS 2022-10-09 05:24:00 Abraham Orantes [facility] CONSENT/REFUSAL FOR 2022-10-09 03:56:57 Doctor Andrea [facility]IC [facility] 2022-08-20 15:11:00 Trevor Taylor [facility] ([id number]) [facility] CBC WITH DIFF 2022-08-20 15:11:00 Trevor Taylor [facility] URINALYSIS 2022-08-20 15:11:00 Trevor Taylor [facility] CONSENT/REFUSAL FOR 2022-08-20 14:32:58 Doctor Unassigned, [facility] DIAGNOSIS AND TREATMENT [address] [facility] [place] CT ABDOMEN PELVIS W 2022-06-09 13:12:35 Tricia [facility] CONTRAST Medical Branch LIPASE 2022-06-09 12:48:00 Tricia [facility] COMP. METABOLIC PANEL 2022-06-09 12:48:00 Tricia [facility] ([id number]) [place] CBC WITH DIFF 2022-06-09 12:48:00 Tricia [facility] URINALYSIS 2022-06-09 12:48:00 Tricia [facility] NOTICE OF PRIVACY 2022-06-09 11:47:39 Doctor Unassigned, [facility] PRACTICES [address] [facility] [place] CONSENT/REFUSAL FOR 2022-06-09 11:47:18 Doctor Unasschava, [facility] DIAGNOSIS AND TREATMENT [address] [facility] [place] PHOSPHORUS 2021-11-01 09:55:00 Darshan [facility] MAGNESIUM 2021-11-01 09:55:00 Darshan [facility] BASIC METABOLIC PANEL 2021-11-01 09:55[facility] ([facility], K, CL, CO2, GLUCOSE, Medica l Branch BUN, CREATININE, CA) CBC WITH DIFF 2021-11-01 09:55:00 Darshan [facility] PHOSPHORUS 2021-10-31 08:45:00 Leela greg [facility] CREATINE KINASE 2021-10-31 08:45:00 Leela [facility] MAGNESIUM 2021-10-31 08:45:00 Emelia Gallego [facility] TROPONIN I 2021-10-31 08:45:00 Leela greg [facility] COMP. METABOLIC PANEL 2021-10-31 08:45:00 Roxanne Swenson [facility] ([id number]) Medical Branch CBC WITH DIFF 2021-10-31 08:45:00 Emelia Gallego [facility] PROTHROMBIN TIME / INR 2021-10-31 08:45:00 Roxanne Swenson [facility] N-TERMINAL PRO-BNP 2021-10-31 08:45:00 Roxanne Swenson [facility] LACTIC ACID WHOLE BLOOD 2021-10-31 08:45:00 Roxanne Swenson [facility] FECES CULTURE 2021-10-30 22:27:00 Monica Hernandez [facility] OCCULT (GUAIAC) BLOOD 2021-10-30 22:27:00 [facility] CLOSTRIDIUM DIFFICILE 2021-10-30 22:27:00 Monica Hernandez [facility] TOXIN [facility] COVID-19 (ID NOW RAPID 2021-10-30 21:24:00 Madison Sepulveda [facility] TESTING) [facility] LAB ONLY COVID 2021-10-30 21:24:00 Madison Sepulveda [facility] INTERPRETATION [facility] CT ABDOMEN PELVIS W 2021-10-30 20:44:09 Madison Sepulveda [facility] CONTRAST [facility] LIPASE 2021-10-30 20:25:00 Madison Sepulveda [facility] TROPONIN I 2021-10-30 20:25:00 Roxanne Swenson [facility] COMP. METABOLIC PANEL 2021-10-30 20:25:00 Madison Sepulveda [facility] ([id number]) [facility] CBC WITH DIFF 2021-10-30 20:25:00 Madison Sepulveda [facility] URINALYSIS 2021-10-30 20:25:00 Madison Sepulveda [facility] N-TERMINAL PRO-BNP 2021-10-30 20:25:00 Roxanne Swenson [facility] CONSENT/REFUSAL FOR 2021-10-30 19:24:05 Doctor Unassigned, [facility] DIAGNOSIS AND TREATMENT [address] Medical Branch CREATINE KINASE 2021-05-24 04:40:00 Felipe Ortega [facility] BASIC METABOLIC PANEL 2021-05-24 04:40:00 Felipe Ortega [facility] (NA, K, CL, CO2, GLUCOSE, Medica l Branch BUN, CREATININE, CA) URINALYSIS 2021-05-24 02:14:00 Felipe Ortega [facility] CREATINE KINASE 2021-05-24 01:53:00 Felipe Ortega [facility] TROPONIN I 2021-05-24 01:53:00 Felipe Ortega [facility] COMP. METABOLIC PANEL 2021-05-24 01:53:00 Felipe Ortega [facility] ([id number]) Medical Branch CBC WITH DIFF 2021-05-24 01:53:00 Felipe Ortega [facility] N-TERMINAL PRO-BNP 2021-05-24 01:53:00 Felipe Ortega [facility] [place] ASSIGNMENT OF BENEFITS 2021-05-23 00:46:04 Doctor Unassigned, [facility] [address] Medical Branch CONSENT/REFUSAL FOR 2021-05-22 23:31:57 Doctor Andrea, [facility] DIAGNOSIS AND TREATMENT [address] [facility] [place] SARS-COV-2 COVID-19 2021-05-07 16:12:40 Doctor Andrea, [facility] VACCINE,0.3ML,IM (PFIZER) [address] [facility] RAPID STREP SCREEN FOR 2021-05-02 00:07:00 Aydin Matos [facility] GROUP A Medical Branch COVID-19 (ID NOW RAPID 2021-05-02 00:07:00 Aydin Matos [facility] TESTING) Medical Branch CONSENT/REFUSAL FOR 2021-05-01 23:56:07 Doctor Andrea, [facility] DIAGNOSIS AND TREATMENT [address] [facility] [place] RAPID STREP SCREEN FOR 2021-04-02 01:05:00 Harvinder Nikhil [facility] GROUP A Medical Branch COVID-19 (ID NOW RAPID 2021-04-02 01:05:00 Blanton Nikhil [facility] TESTING) Medical Branch NOTICE OF PRIVACY 2021-04-02 00:56:18 Doctor Andrea, [facility] [address] [facility] [place] CONSENT/REFUSAL FOR 2021-04-02 00:49:05 Doctor [facility] DIAGNOSIS AND TREATMENT [address] [facility] [place] XR WRIST 3+ VW LEFT 2021-03-18 01:19:59 Nikhil Blanton [facility] URINALYSIS 2021-03-18 01:12:00 Nikhil Blanton [facility] CONSENT/REFUSAL FOR 2021-03-18 00:56:01 Doctor Andrea [facility] DIAGNOSIS AND TREATMENT [address] [facility] [place] XR CHEST 1 VW 2020-11-15 03:48:28 Darnell Hsu [facility] CONSENT/REFUSAL FOR 2020-11-15 03:11:27 Doctor Andrea [facility] DIAGNOSIS AND TREATMENT [address] [facility] [place] CT HEAD WO CONTRAST 2020-09-30 15:00:43 Jessy Siddiqui [facility] XR CHEST 1 VW 2020-09-30 14:37:13 Jessy Siddiqui [facility] LIPASE 2020-09-30 14:25:00 Jessy Siddiqui [facility] TROPONIN I 2020-09-30 14:25:00 Jessy Siddiqui [facility] COMP. METABOLIC PANEL 2020-09-30 14:25:00 Jessy Siddiqui [facility] ([id number]) [facility] CBC WITH DIFF 2020-09-30 14:25:00 Jessy Siddiqui [facility] N-TERMINAL PRO-BNP 2020-09-30 14:25:00 Jessy Siddiqui [facility] NOTICE OF PRIVACY 2020-09-30 13:57:13 Doctor Andrea [facility] PRACTICES [address] [facility] [place] CONSENT/REFUSAL FOR 2020-09-30 13:55:57 Doctor [facility] DIAGNOSIS AND TREATMENT [address] [facility] [place] EKG-12 LEAD 2020-07-02 03:20:42 Felipe Ortega [facility] LIPASE 2020-07-02 03:05:00 Abraham Orantes [facility] TROPONIN I 2020-07-02 03:05:00 Felipe Ortega [facility] COMP. METABOLIC PANEL 2020-07-02 03:05:00 Abraham Orantes [facility] ([id number]) [facility] CBC WITH DIFF 2020-07-02 03:05:00 Abraham Orantes [facility] NOTICE OF PRIVACY 2020-07-02 02:48:43 Doctor Unassigned, [facility] PRACTICES [address] [facility] CONSENT/REFUSAL FOR 2020-07-02 02:46:14 Doctor Unassigned, [facility] DIAGNOSIS AND TREATMENT [address] [facility] Plan of Care Planned Activity Planned Date Details Comments Source Goal Plan of Care Note [code = 15998-1] Goal Plan of Care Note [code = 66452-2] Goal Plan of Care Note [code = 71200-3] Goal Plan of Care Note [code = 03317-7] Goal Plan of Care Note [code = 20309-1] Goal Plan of Care Note [code = 85356-0] Goal Plan of Care Note [code = 80388-8] Goal Plan of Care Note [code = 94009-4] Goal Plan of Care Note [code = 03148-3] Goal Plan of Care Note [code = 80833-9] Goal Plan of Care Note [code = 73830-5] Goal Plan of Care Note [code = 85789-1] Goal Plan of Care Note [code = 77975-0] Goal Plan of Care Note [code = 78225-7] Goal Plan of Care Note [code = 48060-6] Encounters Start End Encounter Admission Attending Care Care Encounter Source Date/Time Date/Time Type Type Clinicians Facility Department ID 2022-07-29 Outpatient ANAM James [facility] [id number] 2 Common 14:17:02 Mayuri [facility] 2022-07-11 Outpatient ANAM James [facility] [id number] 2 Common 08:20:03 Mayuri [facility] 2023-07-17 2023-07-17 Outpatient LUZ MARIA BRENNAN [id number] Luz Maria 13:45:00 13:45:00 NANCY purdy 2023-07-11 2023-07-11 Emergency X DEBBIE SUAREZ, [facility] ERT [id number] Univers 20:53:00 23:38:00 STEPHIE ity of [facility] 2023-07-11 2023-07-11 Emergency Asamyra Suarez, TRAUMA 1.2.840.114 [id number] Univers 20:53:00 23:38:00 Stephie CENTER 350.1.13.10 [place] [id number] [facility] [address] [place] 2023-07-10 2023-07-10 Outpatient R ROCKY [facility] [id number] Univers 08:45:00 12:03:37 ADEL ity of [facility] 2023-07-10 2023-07-10 Office [facility] 1.2.840.114 [id number] Univers 08:45:00 12:03:37 Visit Taylor SPECIALTY 350.1.13.10 it[place] [phone] Hi remingotn ANTOINE 2 [facility] 2023-07-10 2023-07-10 Orders Doctor KARL 1.2.840.114 [id number] Univers 00:00:00 00:00:00 Only Unassigned, EVE 350.1.13.[address] [facility] 4.2.7.2.686 Jim as [id number] [facility] [address] [place] 2023-07-08 2023-07-08 Outpatient LUZ MARIA RICHARDSON [id number] Luz Maria 09:15:00 09:15:00 KIARA faith 2023-07-03 2023-07-03 Emergency X MIRIAM LUDWIG [facility] ERT [id number] Univers 04:49:00 09:47:00 MIRIAM LUDWIG ity of [facility] 2023-07-03 2023-07-03 Emergency AudickHaresh Darlin TRAUMA 1.2.840.114 [id number] Univers 04:49:00 09:47:00 Miriam Ludwig CENTER 350.1.13.10 [place] [id number] [address] 2023-07-01 2023-07-02 Emergency EM Rosibel, [facility] ER [id number] [facility] 22:56:00 01:00:00 Kristian blake [facility] 2023-05-20 2023-05-20 Outpatient LAB56 LUZ MARIA HOLLIDAY [id number] Luz Maria 15:50:00 15:50:00 Seelisa d 2023-05-20 2023-05-20 Outpatient LUZ MARIA RICHARDSON [id number] Luz Maria 15:15:00 15:15:00 KIARA faith 2023-05-07 2023-05-07 Emergency X STILGENBAUE [facility] ERT [id number] Univers 17:37:00 23:23:00 Edith [facility] 2023-05-07 2023-05-07 Emergency Stilgenbaue TRAUMA 1.2.840.114 [id number] Univers 17:37:00 23:23:00 edith [facility] 350.1.13.10 i ty of 4.2.7.2.686 [facility] [id number] [address] 2023-05-01 2023-05-02 Emergency X [facility] ERT [id number] Univers 21:39:00 00:35:00 AYDIN [facility] 2023-05-01 2023-05-02 Emergency [facility] 1.2.850.278 [id number] Univers 21:39:00 00:35:00 Aydin RODRIGUEZ 350.1.13.10 i ty [facility] 4.2.7.2.686 [facility] [id number] [address] 2023-04-22 2023-04-22 Emergency [facility] ERT [id number] Univers 03:51:00 13:11:00 NATALI hester [facility] 2023-04-22 2023-04-22 Emergency Abraham Orantes S [facility] 1.2.840 .114 [id number] Univers 03:51:00 13:11:00 Natali Alexander 350.1.13.1 [address] [facility] 4.2.7.2.686 [facility] [id number] [facility] [address] 2023-04-16 2023-04-16 Emergency X CHRISTA, [facility] ERT [id number] Univers 07:09:00 09:00:00 ADELAIDE ity of [facility] 2023-04-16 2023-04-16 Emergency Christa, TRAUMA 1.2.840.114 [id number] Univers 07:09:00 09:00:00 [facility] 350.1.13.10 it y of 4.2.7.2.686 [facility] [id number] [facility] [address] 2023-03-31 2023-04-01 Emergency [facility] [id number] Univers 23:59:00 03:24:00 SHINTA ity [facility] 2023-03-31 2023-04-01 Emergency [facility] 1.2.840.114 [id number] Univers 23:59:00 03:24:00 Hemalatha RODRIGUEZ 350.1.13.10 i ty of [place] 4.2.7.2.686 [facility] [phone] [place] [address] [place] 2023-02-13 2023-02-13 Emergency [facility] ERT [id number] Univers 16:02:00 17:25:00 JESSICA ity [facility] 2023-02-13 2023-02-13 Emergency [facility] 1.2.208.998 [id number] Univers 16:02:00 17:25:00 Jessica RODRIGUEZ 350.1.13.10 i ty of [place] 4.2.7.2.686 [facility] [id number] [facility] [address] 2023-01-05 2023-01-05 Orders Doctor KARL 1.2.840.114 [id number] Univers 00:00:00 00:00:00 Only Unassigned, EVE 350.1.13.[address] [facility] 4.2.7.2.686 Jim [id number] [facility] [address] 2022-12-29 2022-12-29 Outpatient SFA [facility] [id number] Dewey 17:25:40 17:25:40 0417 F Kris 2022-12-09 2022-12-09 Emergency [facility] [id number] Univers 00:01:00 01:39:00 SOHAM hester [facility] 2022-12-09 2022-12-09 Emergency [facility] 1.2.667.858 [id number] Univers 00:01:00 01:39:00 Soham RODRIGUEZ 350.1.13.10 ity of [place] 4.2.7.2.686 [facility] [id number] [place] [address] [place] 2022-11-24 2022-11-25 Emergency X [facility] ERT [id number] Univers 23:44:00 02:56:00 AYDIN [facility] 2022-11-24 2022-11-25 Emergency [facility] 1.2.693.674 [id number] Univers 23:44:00 02:56:00 Lion RODRIGUEZ 350.1.13.10 i ty of [place] 4.2.7.2.686 [facility] [id number] [facility] [address] [place] 2022-10-25 2022-10-25 Patient Doctor KARL 1.2.840.114 [id number] Univers 00:00:00 00:00:00 Secure Msg Unassigned, EVE 350.1.13.[address] [facility] 4.2.7.2.686 [place] [id number] [facility] [address] 2022-10-23 2022-10-23 Orders Doctor KARL 1.2.840.114 [id number] Univers 00:00:00 00:00:00 Only Unassigned, EVE 350.1.13.[address] HOSPITAL 4.2.7.2.686 [place] [id number] [facility] [address] 2022-10-11 2022-10-12 Outpatient X DAVID [facility] MARTI [id number] Univers 06:41:00 17:56:00 MARK hester [facility] 2022-10-11 2022-10-12 Emergency Aydin Matos 1.2.840. 114 [id number] Univers 06:41:00 17:56:00 David Mark Kilpatrick EVE 350.1.13.10 ity of [facility] 4.2.7.2.686 [place] [id number] [facility] [address] 2022-10-08 2022-10-09 Emergency X [facility] ERT [id number] Univers 22:15:00 01:39:00 WAKILI ity of [facility] 2022-10-08 2022-10-09 Emergency [facility] 1.2.288.317 [id number] Univers 22:15:00 01:39:00 Abraham RODRIGUEZ 350.1.13.10 ity of [place] 4.2.7.2.686 [facility] [id number] [address] 2022-10-08 2022-10-08 Orders Doctor KARL 1.2.840.114 [id number] Univers 00:00:00 00:00:00 Only Unassigned, EVE 350.1.13.[address] [facility] 4.2.7.2.686 [place] [id number] [facility] [address] 2022-08-20 2022-08-20 Emergency X MADDIE K [facility] ERT [id number] Univers 08:42:00 12:19:00 ity of [facility] 2022-08-20 2022-08-20 Emergency Trevor Taylor [facility] 1.2.840.114 [id number] Univers 08:42:00 12:19:00 Tiffanie RODRIGUEZ 350.1.13.10 i ty of [place] 4.2.7.2.686 [facility] [id number] [address] 2022-07-11 2022-07-11 OFFICE [facility] [id number] mmon 00:00:00 00:00:00 VISIT NEW Spir it PT LEVEL 3 - [facility] 2022-07-09 2022-07-09 Outpatient SFA SFA [id number] [place] 10:07:22 10:07:22 1026 F Kris 2022-07-09 2022-07-09 Outpatient 42781ttt- [id number] 159eeb-c 00:00:00 00:00:00 Visit [id number] 2022-06-09 2022-06-09 Emergency X TRICIA [facility] ERT [id number] Univers 06:57:00 10:27:00 SOHAM hester [facility] 2022-06-09 2022-06-09 Emergency [facility] 1.2.141.564 [id number] Univers 06:57:00 10:27:00 Soham RODRIGUEZ 350.1.13.10 ity [place] [id number] [facility] [address] 2022-06-09 2022-06-09 Orders Doctor AKRL 1.2.840.114 [id number] Univers 00:00:00 00:00:00 Only Unassigned, EVE 350.1.13.[address] [facility] 4.2.7.2.686 [place] [id number] [facility] [address] 2021-11-04 2021-11-04 Transition KAMLA Carroll 1.2.840.114 [id number] Univers 00:00:00 00:00:00 of Care Ellen MOORE 350.1.13.10 i ty of [place] [id number] [facility] [address] 2021-10-30 2021-11-01 Inpatient X JULIÁN [facility] MARTI [id number] Univers 13:39:00 13:45:00 EMELIA [facility] 2021-10-30 2021-11-01 [facility] Madison Sepulveda [facility] 1.2.8 40.114 [id number] Univers 13:39:00 13:45:00 Encounter Emelia Gallego 350.1.13.10 ity [facility] [place].2.7.2.[place] [id number] [facility] [address] 2021-10-30 2021-10-30 Orders Doctor BARAJAS 1.2.840.114 [id number] Univers 00:00:00 00:00:00 Only Unassigned, EVE 350.1.13.10 ity of [facility] 4.2.7.2.686 [place] [id number] [facility] [address] 2021-05-23 2021-05-24 Emergency [place], [facility] 1.2.840.114 [id number] Univers 20:42:00 01:42:00 Felipe Yenifer Rodriguez 350.1.13.10 i ty of [place] 4.2.7.2.686 [facility] [id number] [place] [address] [place] 2021-05-23 2021-05-23 Emergency X FREMONT, [facility] ERT [id number] Univers 20:42:00 20:42:00 FELIPE ity [facility] 2021-05-22 2021-05-22 Emergency [facility] 1.2.343.284 [id number] Univers 18:37:00 21:40:00 Gabriella Rodriguez 350.1.13.10 ity of [place] 4.2.7.2.686 [facility] [id number] [address] 2021-05-22 2021-05-22 Emergency X [facility] ERT [id number] Univers 18:31:00 18:31:00 ity of [facility] 2021-05-07 2021-05-07 Imm/Inj Nurse, Adc Pob Immunization [facility] 1.2.840.114 [id number] Univers 11:11:35 11:11:42 Visit David Clarke 350.1.13 .10 ity of [place] 4.2.7.2.686 [facility] Professio [id number] Hi dical [address] 2021-05-01 2021-05-01 Emergency [place], [facility] 1.2.840.114 [id number] Univers 19:09:00 20:46:00 Nikhil Rodriguez 350.1.13.10 i ty of [place] 4.2.7.2.686 [facility] [id number] [address] 2021-05-01 2021-05-01 Emergency X [facility] ERT [id number] Univers 18:53:00 18:53:00 ity of [facility] 2021-04-01 2021-04-01 Emergency [place], [facility] 1.2.840.114 [id number] Univers 20:06:00 21:56:00 Nikhil Rodriguez 350.1.13.10 i ty of [place] 4.2.7.2.686 [facility] [id number] [address] 2021-04-01 2021-04-01 Emergency [place], [facility] 1.2.840.114 [id number] 20:06:00 21:56:00 Nikhilberhane Rodriguez 350.1.13.10 [place] 4.2.7.2.686 [place] [id number] 084 2021-04-01 2021-04-01 Emergency X [place], [facility] ERT [id number] Univers 20:06:00 20:06:00 NIKHIL itchanda [facility] 2021-03-17 2021-03-17 Emergency [place], [facility] 1.2.840.114 [id number] Univers 20:09:00 22:19:00 Nikhilberhane Rodriguez 350.1.13.10 i ty of [place] 4.2.7.2.686 [facility] [id number] [address] 2021-03-17 2021-03-17 Emergency [place], [facility] 1.2.840.114 [id number] 20:09:00 22:19:00 Nikhil Rodriguez 350.1.13.10 [place] 4.2.7.2.686 [place] [id number] 084 2021-03-17 2021-03-17 Emergency X [facility] ERT [id number] Univers 19:56:00 19:56:00 ity [facility] 2020-11-15 2020-11-15 Telephone KARL Laurent 1.2.420.427 [id number] 00:00:00 00:00:00 Patient EVE 350.1.13.10 Does [facility] 4.2.7.2.686 Have A [id number] 019 2020-11-15 2020-11-15 Letter KARL Mar 1.2.840.114 [id number] 00:00:00 00:00:00 (Out) Mirna PRADO 350.1.13.10 HOSPITAL 4.2.7.2.686 [id number] 019 2020-11-15 2020-11-15 Letter KARL Mar 1.2.840.114 [id number] Univers 00:00:00 00:00:00 (Out) Mirna PRADO 350.1.13.10 it y of HOSPITAL 4.2.7.2.686 [place] [id number] [place] [address] [place] 2020-11-15 2020-11-15 Telephone PcpKARL 1.2.017.900 [id number] Univers 00:00:00 00:00:00 Patient EVE 350.1.13.10 it y of Does Not HOSPITAL [place].2.[place] [id number] [place] [address] [place] 2020-11-14 2020-11-14 Emergency [facility] 1.2.513.177 [id number] 21:29:00 22:55:00 Darnell Rodriguez 350.1.13.10 [place] 4.2.7.2.686 [place] [id number] 08 2020-11-14 2020-11-14 Emergency [facility] 1.2.161.556 [id number] [id number] Univers 21:29:00 22:55:00 Darnell Rodriguez 350.1.13.10 i ty [place] [id number] [place] [address] Branch 2020-11-14 2020-11-14 Emergency X [facility] ERT [id number] Univers 21:29:00 22:55:00 DARNELL mir of [facility] 2020-09-30 2020-09-30 Emergency [facility] 1.2.840.114 [id number] 08:03:00 10:45:00 Jessy Rodriguez 350.1.13.10 [place] 4.2.7.2.686 [place] [id number] 084 2020-09-30 2020-09-30 Emergency [facility] 1.2.840.114 [id number] Univers 08:03:00 10:45:00 Jessy Rodriguez 350.1.13.10 ity of [place] 4.2.7.2.686 [facility] [id number] [address] 2020-09-30 2020-09-30 Emergency X [facility] ERT [id number] Univers 07:58:00 07:58:00 ity [facility] 2020-09-30 2020-09-30 Orders Doctor KARL 1.2.840.114 [id number] 00:00:00 00:00:00 Only Unassigned, EVE 350.1.13.[address] [facility] 4.2.7.2.686 [id number] 009 2020-09-30 2020-09-30 Orders Doctor KARL 1.2.840.114 [id number] Univers 00:00:00 00:00:00 Only Unassigned, EVE 350.1.13.[address] [facility] 4.2.7.2.686 [facility] [id number] [address] 2020-07-01 2020-07-01 Emergency [facility] 1.2.840.114 [id number] 21:58:00 23:54:00 Felipe Yenifer CrockettJemison 350.1.13.10 [place] 4.2.7.2.686 [place] [id number] [facility] 2020-07-01 2020-07-01 Emergency [facility] 1.2.840.114 [id number] Univers 21:58:00 23:54:00 Felipe Yenifer CrockettJemison 350.1.13.10 i ty of [place] 4.2.7.2.686 [facility] [id number] [address] 2020-07-01 2020-07-01 Emergency X [place], [facility] ERT [id number] Univers 21:58:00 21:58:00 [facility] Test Description Test Time Test Comments Results Result Comments Source Troponin I 2023-07-12 02:46:51 Test Item Value Reference Range Interpretation Comme nts TROPONIN I (test code = 7088068168) 0.017 ng/mL <=0.034 KRYSTLE (test code = KRYSTLE) Reference (Normal) Range (defined by the 99th percentile reference [...] to patient's use of biotin. Lab Interpretation (test code = Normal 77993-6) [facility] 02[facility]35[facility]28 Test Item Value Reference Range Interpretation Comments NA (test code = 138 mmol/L 135-145 6573803607) K (test code = 3.7 mmol/L 3.5-5.0 3212417160) CL (test code = 106 mmol/L 98-108 5109480113) CO2 TOTAL (test code = 24 mmol/L 23-31 6032562296) AGAP (test code = 8 2-16 6596075856) BUN (test code = 11 mg/dL 7-23 3482412251) GLUCOSE (test code = 165 mg/dL 70-110 H 4213056191) CREATININE (test code = 0.89 mg/dL 0.60-1.25 3896083812) TOTAL BILI (test code = 0.2 mg/dL 0.1-1.7 7336018996) CALCIUM (test code = 9.3 mg/dL 8.6-10.6 6948855214) T PROTEIN (test code = 7.0 g/dL 6.3-8.2 5872737151) ALBUMIN (test code = 4.0 g/dL 3.5-5.0 9760132689) ALK PHOS (test code = 59 U/L 34-122 8093448227) ALTv (test code = 23 U/L 5-50 1742-6) AST(SGOT) (test code = 27 U/L 13-40 8084722871) eGFR (test code = 90.5 mL/min/1.73m2 3284004306) KRYSTLE (test code = KRYSTLE) Association of [...] tests). Lab Interpretation Abnormal (test code = 00422-8) [facility] with [id number] 02:26:10 Test Item Value Reference Range Interpretation Comments WBC (test code = 5.78 See_Comment [Automated 8966-2) message] The sy stem which generated this result transmitted reference range : 4.20 - 10.70 10*3/?L. The reference range was not used to interpret this result as normal/abnormal . RBC (test code = 4.59 See_Comment [Automated 206-6) message] The sy stem which generated this result transmitted reference range : 4.26 - 5.52 10*6/?L. The reference range was not used to interpret this result as normal/abnormal . HGB (test code = 13.8 g/dL 12.2-16.4 718-7) HCT (test code = 39.0 % 38.4-49.3 4544-3) MCV (test code = 85.0 fL 81.7-95.6 787-2) MCH (test code = 30.1 pg 26.1-32.7 785-6) MCHC (test code = 35.4 g/dL 31.2-35.0 H 786-4) RDW-SD (test code = 38.6 fL 38.5-51.6 46977-1) RDW-CV (test code = 12.6 % 12.1-15.4 788-0) PLT (test code = 200 See_Comment [Automated 777-3) message] The sy stem which generated this result transmitted reference range : 150 - 328 10*3/ ?L. The reference r andrea was not used to interpret this result as normal/abnormal . MPV (test code = 9.6 fL 9.8-13.0 L 16561-7) NRBC/100 WBC (test 0.0 See_Comment [Automat ed code = 9494136716) message] The system which generated this result transmitted reference range : 0.0 - 10.0 /100 WBCs. The refer ence range was not u sed to interpret th is result as normal/abnormal . NRBC x10^3 (test code See_Comment [Auto mated = 8687074483) message] The s ystem which generated this result transmitted reference range : 10*3/?L. The reference range was not used to interpret this result as normal/abnormal . GRAN MAT (NEUT) % 36.8 % (test code = 770-8) IMM GRAN % (test code 0.20 % = 0618598946) LYMPH % (test code = 54.7 % 736-9) MONO % (test code = 7.1 % 5905-5) EOS % (test code = 0.9 % 713-8) BASO % (test code = 0.3 % 706-2) GRAN MAT x10^3(ANC) 2.13 10*3/uL 1.99-6.95 (test code = 5882291371) IMM GRAN x10^3 (test 0.00-0.06 code = 2135803884) LYMPH x10^3 (test code 3.16 10*3/uL 1.09-3.23 = 731-0) MONO x10^3 (test code 0.41 10*3/uL 0.36-1.02 = 742-7) EOS x10^3 (test code = 0.05 10*3/uL 0.06-0.53 L 711-2) BASO x10^3 (test code 0.01-0.09 = 704-7) Lab Interpretation Abnormal (test code = 22393-3) [facility]. METABOLIC PANEL (81447)2023-07-03 10:47:01 Test Item Value Reference Range Interpretation Comments NA (test code = 138 mmol/L 135-145 1916352080) K (test code = 4.5 mmol/L 3.5-5.0 Slight 3887472829) hemolysis CL (test code = 103 mmol/L 98-108 0706139169) CO2 TOTAL (test code 23 mmol/L 23-31 = 6166127371) AGAP (test code = 12 2-16 8827712705) BUN (test code = 16 mg/dL 7-23 Slight 2653363378) hemolysis GLUCOSE (test code = 142 mg/dL 70-110 H 0082178641) CREATININE (test code 0.99 mg/dL 0.60-1.25 = 3463548319) TOTAL BILI (test code 1.2 mg/dL 0.1-1.1 H = 1244379995) CALCIUM (test code = 9.6 mg/dL 8.6-10.6 6327827143) T PROTEIN (test code 8.1 g/dL 6.3-8.2 = 3540169309) ALBUMIN (test code = 4.6 g/dL 3.5-5.0 4334999052) ALK PHOS (test code = 51 U/L 34-122 Slight 5940851096) hemolysis ALTv (test code = 26 U/L 5-50 1742-6) AST(SGOT) (test code 32 U/L 13-40 Slight = [id number]) hemolysis eGFR (test code = 80.0 mL/min/1.73m2 [id number]) KRYSTLE (test code = KRYSTLE) Association of [...] tests). Lab Interpretation Abnormal (test code = 24810-8) [facility] Test Item Value Reference Range Interpretation Comments LIPASE (test code = 7680702492) 955 U/L 0-220 H Lab Interpretation (test code = Abnormal 85308-4) [facility] [id number] 10:27:34 Test Item Value Reference Range Interpretation Comments WBC (test code = 6.60 See_Comment [Automated 0072-2) message] The sy stem which generated this result transmitted reference range : 4.20 - 10.70 10*3/?L. The reference range was not used to interpret this result as normal/abnormal . RBC (test code = 5.32 See_Comment [Automated 773-7) message] The sy stem which generated this result transmitted reference range : 4.26 - 5.52 10*6/?L. The reference range was not used to interpret this result as normal/abnormal . HGB (test code = 16.0 g/dL 12.2-16.4 638-7) HCT (test code = 46.4 % 38.4-49.3 4544-3) MCV (test code = 87.2 fL 81.7-95.6 787-2) MCH (test code = 30.1 pg 26.1-32.7 785-6) MCHC (test code = 34.5 g/dL 31.2-35.0 786-4) RDW-SD (test code = 39.4 fL 38.5-51.6 33190-1) RDW-CV (test code = 12.3 % 12.1-15.4 788-0) PLT (test code = 226 See_Comment [Automated 777-3) message] The sy stem which generated this result transmitted reference range : 150 - 328 10*3/ ?L. The reference r andrea was not used to interpret this result as normal/abnormal . MPV (test code = 9.6 fL 9.8-13.0 L 43805-4) NRBC/100 WBC (test 0.0 See_Comment [Automat ed code = [id number]) message] The system which generated this result transmitted reference range : 0.0 - 10.0 /100 WBCs. The refer ence range was not u sed to interpret th is result as normal/abnormal . NRBC x10^3 (test code See_Comment [Auto mated = [id number]) message] The s ystem which generated this result transmitted reference range : 10*3/?L. The reference range was not used to interpret this result as normal/abnormal . GRAN MAT (NEUT) % 54.9 % (test code = 770-8) IMM GRAN % (test code 0.20 % = 7147197886) LYMPH % (test code = 36.2 % 736-9) MONO % (test code = 7.9 % 5905-5) EOS % (test code = 0.5 % 713-8) BASO % (test code = 0.3 % 706-2) GRAN MAT x10^3(ANC) 3.63 10*3/uL 1.99-6.95 (test code = 3273020679) IMM GRAN x10^3 (test 0.00-0.06 code = 0466080538) LYMPH x10^3 (test code 2.39 10*3/uL 1.09-3.23 = 731-0) MONO x10^3 (test code 0.52 10*3/uL 0.36-1.02 = 742-7) EOS x10^3 (test code = 0.03 10*3/uL 0.06-0.53 L 711-2) BASO x10^3 (test code 0.01-0.09 = 704-7) Lab Interpretation Abnormal (test code = 38593-1) [facility] [id number] [facility]:06[facility] 1970 Sex: M Patient Name: MARTHA LOW Unit No: [id number] EXAMS: CPT CODE: [id number] CT ABD PELVIS W/CONT 09815 Reason: diffuse abd pain CT Scan of the Abdomen and Pelvis With Contrast Location Code M12 History: diffuse abd pain Technique: Axial and reconstructed coronal scans were performed on a helical scannerpost IV contrast. Unless stated otherwise, there are no suspicious findings in any incidental incompletely characterized cystic lesion based on the ACR White Papers that would require further follow up per consensus recommendations. However, follow up may be indicated to completely characterize thesecystic lesions based on patient risk factors. One or more of the following dose reduction techniqueswere used: Automated exposure control, adjustment of the mA and/or kV according to patient size, and/or utilization of iterative reconstruction technique. Findings: LIVER: Liver is hypodense consistentwith steatosis. There is a too small to characterize hypodense lesion in the anterior segment of theright hepatic lobe. GALLBLADDER/BILIARY: No significant findings. PANCREAS: No significant findings.SPLEEN: No significant findings. ADRENALS: No significant findings. KIDNEYS: No hydronephrosis. BLADDER: There is no bladder wall thickening. Prostate gland is mildly enlarged. There is a nodular component from the prostate gland measuring 1.7 cm protruding into the bladder base. GASTROINTESTINAL: No significant findings. The appendix is unremarkable. IMPRESSION: No acute findings in the abdomen or pelvis. Mildly enlarged prostate with a nodular component protruding into the bladder base. Correlation with PSA is recommended. at 0006 Reported and signed by: Jennifer Bass MD CC: Kristian Gleason DO; [facility] Technologist: Cory Romero CT Trscrpt Dt/ (000)[id number] Orig Print D/T: S: 07/02/2023 (0009) CTDI: DLP: [place] FSED NAME: MARTHA LOW [address] [place] [address] PHYS: MANOLO.[email or web address] - Kristian Gleason [address] : 1970 AGE: 52 SEX: M [place], [place] [address] LOC: D.PER PHONE #: [phone] EXAM DATE: 07/01/2023 STATUS: REG ER FAX #: RAD NO: DC Dt: PAGE 1 Signed ReportTROP-I HIGH [id number] 23:55:00 Test Item Value Reference Range Interpretation Comments TROP-I HIGH 5 ng/L < 76 Results above 51 for SENSITIVITY (test code femal es and 76 for males = TROPIHS) are consistent with IFCC Committee recom mendations to use the 99th percentile of a normal population as a reference decision-limit. - The use of serial sampl ing and testing protoco l is a recommended pra ctive.- An elevated high sensitiveity tr oponin level alone is often not sufficient for diagnosis of myocardial infarction.- In order to distinguish acu te elevations of h igh sensitivity tro ponin from other clinical conditions, the Fourth [place] Defin ition of Myocardial Infa rction stresses clinic al assessment and demonstration o f a rise and/or fall in serial troponin result s above the upper refer ence limit.Results o f this assay method ma y be falsely depress ed orelevated if p atient is taking high dos es of Biotin. BASIC METABOLIC [id number] 23:55:00 Test Item Value Reference Range Interpretation Comments SODIUM (test code = 136 MMOL/L 133-145 N NA) POTASSIUM (test code 3.3 MMOL/L 3.6-5.2 L = K) CHLORIDE (test code 100 MMOL/L 100-108 N = CL) CARBON DIOXIDE (test 23 MMOL/L 22-32 N code = CO2) GLUCOSE (test code = 167 MG/DL 65-99 H Results of this assay GLU) method may be f alsely depressed orele vated if patient is taki ng sulfasalazine. BLOOD UREA NITROGEN 14 MG/DL 6-20 N (test code = BUN) GLOMERULAR 80 56-130 N The Glomerular FILTRATION RATE Filtration R ate is a (test code = GFR) calculated parameterbased on serum Creatinine, pat ient age and sex. GFR va luesless than 60 mL/min/ 1.73 square meters a re indicative ofCh ronic Kidney Disease. Values less than 15 mL/min/1.73squa re meters indicate Kidney failure. The calculation for GFR is based on the CK D-EPI (2020) calculat ion. This formulais race indifferent and is the recommended for cosmo for GFRby the Natio nal Kidney Foundati on for Adults.The GFR will not calculate if th e sex is unknown or if thepatient's ag e is <18 years. CREATININE (test 1.12 MG/DL 0.60-1.00 H code = CREAT) CALCIUM (test code = 9.3 MG/DL 8.7-10.5 N CA) HEPATIC FUNCTION [id number] 23:55:00 Test Item Value Reference Range Interpretation Comments TOTAL PROTEIN (test 8.2 G/DL 6.4-8.2 N code = PROT) ALBUMIN (test code = 4.2 G/DL 3.4-5.0 N ALB) GLOBULIN (test code = 4.0 G/DL 1.5-3.8 H GLOB) ALBUMIN/GLOBULIN RATIO 1.1 1.1-2.2 N (test code = A/G) BILIRUBIN TOTAL (test 1.0 MG/DL 0.0-1.0 N code = BILT) BILIRUBIN DIRECT (test 0.2 MG/DL 0.0-0.3 N code = BILD) BILIRUBIN INDIRECT 0.8 MG/DL 0.0-0.7 H (test code = BILIND) SGOT/AST (test code = 18 Units/L 15-37 N Result s of this assay AST) method may be f alsely depressed orele vated if patient is t aking sulfasalazine. SGPT/ALT (test code = 25 Units/L 30-65 L Result s of this assay ALT) method may be f alsely depressed orele vated if patient is t aking sulfasalazine. ALKALINE PHOSPHATASE 60 Units/L 50-136 N TOTAL (test code = ALKP) [id number] 23:55:00 Test Item Value Reference Range Interpretation Comments LIPASE (test code = 259 U/L 16-77 H New R eference Ranges LIP) of 16-77 U/L pl ease review revised from 73-393 U/L on 06/30/2023 CBC W/AUTO [id number] 23:24:00 Test Item Value Reference Range Interpretation Comments WHITE BLOOD CELL (test code = 9.01 x10 3/uL 4.80-10.80 N WBC) RED BLOOD CELL (test code = 5.38 x10 6/uL 4.7-6.1 N RBC) HEMOGLOBIN (test code = HGB) 16.0 G/DL 14.0-17.0 N HEMATOCRIT (test code = HCT) 45.9 % 42-52 N MEAN CELL VOLUME (test code = 85.3 FL 80-94 N MCV) MEAN CELL HGB (test code = MCH) 29.7 PG 27-31 N MEAN CELL HGB CONCENTRATION 34.9 G/DL 33-37 N (test code = MCHC) RED CELL DISTRIBUTION WIDTH 12.7 % 11.5-14.5 N (test code = RDW) PLATELET COUNT (test code = 232 x10 3/uL 150-450 N PLT) MEAN PLATELET VOLUME (test code 9.3 FL 7.4-10.4 N = MPV) NEUTROPHIL % (test code = NT%) 51.0 % 42-86 N LYMPHOCYTE % (test code = LY%) 41.1 % 24-44 N MONOCYTE % (test code = MO%) 7.4 % 0.0-4.0 H EOSINOPHIL % (test code = EO%) 0.3 % 0.0-2.7 N BASOPHIL % (test code = BA%) 0.2 % 0.0-0.5 N NEUTROPHIL # (test code = NT#) 4.59 x10 3/uL 1.8-7.7 N LYMPHOCYTE # (test code = LY#) 3.70 x10 3/uL 1.0-4.8 N MONOCYTE # (test code = MO#) 0.67 x10 3/uL 0.0-0.8 N EOSINOPHIL # (test code = EO#) 0.03 x10 3/uL 0.0-0.5 N BASOPHIL # (test code = BA#) 0.02 x10 3/uL 0.0-0.2 N [id number] 12:29:00 Test Item Value Reference Range Interpretation Comments LIPASE (test code = LIP) 73 Units/L 73-393 N [id number] 17:24:56 Test Item Value Reference Range Interpretation Comments LIPASE (test code = 4213025603) 283 U/L 0-220 H Lab Interpretation (test code = Abnormal 90646-9) [facility] METABOLIC PANEL (NA, K, CL, CO2, GLUCOSE, BUN, CREATININE, CA)2023-04-22 17:24:35 Test Item Value Reference Range Interpretation Comments NA (test code = 139 mmol/L 135-145 2792048539) K (test code = 4.0 mmol/L 3.5-5.0 2010650774) CL (test code = 106 mmol/L 98-108 1413976265) CO2 TOTAL (test code = 25 mmol/L 23-31 3785039678) AGAP (test code = 8 2-16 9758843863) BUN (test code = 21 mg/dL 7-23 6661949911) GLUCOSE (test code = 110 mg/dL 70-110 0496681365) CREATININE (test code = 1.06 mg/dL 0.60-1.25 6178531806) CALCIUM (test code = 8.1 mg/dL 8.6-10.6 L 2451762053) eGFR (test code = 74.0 mL/min/1.73m2 0000310059) KRYSTLE (test code = KRYSTLE) Association of [...] tests). Lab Interpretation Abnormal (test code = 42131-8) [facility] [id number] 13:57:28 Test Item Value Reference Range Interpretation Comments CK (test code = 6845914081) 635 U/L 33-194 H Lab Interpretation (test code = Abnormal 48870-4) [facility] (NA, K, CL, CO2, GLUCOSE, BUN, CREATININE, CA)2023-04-22 13:23:02 Test Item Value Reference Range Interpretation Comments NA (test code = 141 mmol/L 135-145 1686113762) K (test code = 4.0 mmol/L 3.5-5.0 3991268825) CL (test code = 107 mmol/L 98-108 1348075964) CO2 TOTAL (test code = 27 mmol/L 23-31 6871930192) AGAP (test code = 7 2-16 0567782680) BUN (test code = 22 mg/dL 7-23 5879686006) GLUCOSE (test code = 94 mg/dL 70-110 0131120852) CREATININE (test code = 1.26 mg/dL 0.60-1.25 H 5528596055) CALCIUM (test code = 8.3 mg/dL 8.6-10.6 L 0144353135) eGFR (test code = 60.6 mL/min/1.73m2 4223973703) KRYSTLE (test code = KRYSTLE) Association of [...] tests). Lab Interpretation Abnormal (test code = 68901-8) [facility] 13:22:41 Test Item Value Reference Range Interpretation Comments LIPASE (test code = 7751892244) 897 U/L 0-220 H Lab Interpretation (test code = Abnormal 40063-7) [facility] PAN[facility] (09238)2023-04-22 09:43:42 Test Item Value Reference Range Interpretation Comments NA (test code = 140 mmol/L 135-145 8903225070) K (test code = 3.7 mmol/L 3.5-5.0 1086417629) CL (test code = 103 mmol/L 98-108 7031313216) CO2 TOTAL (test code = 24 mmol/L 23-31 8357186124) AGAP (test code = 13 2-16 7470124932) BUN (test code = 24 mg/dL 7-23 H 8992695159) GLUCOSE (test code = 114 mg/dL 70-110 H 3350560490) CREATININE (test code = 1.42 mg/dL 0.60-1.25 H 0041750883) TOTAL BILI (test code = 0.9 mg/dL 0.1-1.7 2190481055) CALCIUM (test code = 9.5 mg/dL 8.6-10.6 8991087350) T PROTEIN (test code = 9.2 g/dL 6.3-8.2 H 0768612229) ALBUMIN (test code = 4.9 g/dL 3.5-5.0 2346369331) ALK PHOS (test code = 66 U/L 34-122 2358586325) ALTv (test code = 25 U/L 5-50 1742-6) AST(SGOT) (test code = 37 U/L 13-40 6858672351) eGFR (test code = 52.8 mL/min/1.73m2 2739199093) KRYSTLE (test code = KRYSTLE) Association of [...] tests). Lab Interpretation Abnormal (test code = 31195-5) [facility] WITH [id number] 09:33:37 Test Item Value Reference Range Interpretation Comments WBC (test code = 8.53 See_Comment [Automated 4901-2) message] The sy stem which generated this result transmitted reference range : 4.20 - 10.70 10*3/?L. The reference range was not used to interpret this result as normal/abnormal . RBC (test code = 5.60 See_Comment H [Automated 034-8) message] The sy stem which generated this result transmitted reference range : 4.26 - 5.52 10*6/?L. The reference range was not used to interpret this result as normal/abnormal . HGB (test code = 17.2 g/dL 12.2-16.4 H 718-7) HCT (test code = 48.0 % 38.4-49.3 4544-3) MCV (test code = 85.7 fL 81.7-95.6 787-2) MCH (test code = 30.7 pg 26.1-32.7 785-6) MCHC (test code = 35.8 g/dL 31.2-35.0 H 786-4) RDW-SD (test code = 40.1 fL 38.5-51.6 69540-9) RDW-CV (test code = 13.0 % 12.1-15.4 788-0) PLT (test code = 267 See_Comment [Automated 304-3) message] The sy stem which generated this result transmitted reference range : 150 - 328 10*3/ ?L. The reference r andrea was not used to interpret this result as normal/abnormal . MPV (test code = 9.6 fL 9.8-13.0 L 72768-3) NRBC/100 WBC (test 0.0 See_Comment [Automat ed code = 4581683877) message] The system which generated this result transmitted reference range : 0.0 - 10.0 /100 WBCs. The refer ence range was not u sed to interpret th is result as normal/abnormal . NRBC x10^3 (test code See_Comment [Auto mated = 4055145658) message] The s ystem which generated this result transmitted reference range : 10*3/?L. The reference range was not used to interpret this result as normal/abnormal . GRAN MAT (NEUT) % 44.5 % (test code = 770-8) IMM GRAN % (test code 0.20 % = 7699334622) LYMPH % (test code = 43.4 % 736-9) MONO % (test code = 10.7 % 5905-5) EOS % (test code = 0.8 % 713-8) BASO % (test code = 0.4 % 706-2) GRAN MAT x10^3(ANC) 3.80 10*3/uL 1.99-6.95 (test code = 6459210139) IMM GRAN x10^3 (test 0.00-0.06 code = 2627718663) LYMPH x10^3 (test code 3.70 10*3/uL 1.09-3.23 H = 731-0) MONO x10^3 (test code 0.91 10*3/uL 0.36-1.02 = 742-7) EOS x10^3 (test code = 0.07 10*3/uL 0.06-0.53 711-2) BASO x10^3 (test code 0.03 10*3/uL 0.01-0.09 = 704-7) Lab Interpretation Abnormal (test code = 16381-1) [facility]ISSA [id number] 13:23:31 Test Item Value Reference Range Interpretation Comments TROPONIN I (test code = 0.020 ng/mL <=0.034 8637254127) KRYSTLE (test code = KRYSTLE) Reference (Normal) Range (defined by the 99th percentile reference [...] biotin. Lab Interpretation Normal (test code = 53726-1) [id number] 13:23[facility]31 Test Item Value Reference Range Interpretation Comments TROPONIN I (test code = 0.020 ng/mL <=0.034 5641567256) KRYSTLE (test code = KRYSTLE) Reference (Normal) Range (defined by the 99th percentile reference [...] biotin. Lab Interpretation Normal (test code = 86959-8) [facility] MET[facility]OLIC PANEL (42664)2023-04-16 12:58:04 Test Item Value Reference Range Interpretation Comments NA (test code = 142 mmol/L 135-145 0480160469) K (test code = 4.0 mmol/L 3.5-5.0 4782286325) CL (test code = 105 mmol/L 98-108 8837958249) CO2 TOTAL (test code = 28 mmol/L 23-31 9729028923) AGAP (test code = 9 2-16 7053743932) BUN (test code = 11 mg/dL 7-23 6042223174) GLUCOSE (test code = 115 mg/dL 70-110 H 4256098789) CREATININE (test code = 0.85 mg/dL 0.60-1.25 7321705570) TOTAL BILI (test code = 0.4 mg/dL 0.1-1.2 8516974008) CALCIUM (test code = 9.2 mg/dL 8.6-10.6 0954783816) T PROTEIN (test code = 7.6 g/dL 6.3-8.2 7581520869) ALBUMIN (test code = 4.4 g/dL 3.5-5.0 9281168146) ALK PHOS (test code = 52 U/L 34-122 2866609956) ALTv (test code = 23 U/L 5-50 2-6) AST(SGOT) (test code = 33 U/L 13-40 2226673265) eGFR (test code = 95.4 mL/min/1.73m2 3029232781) KRYSTLE (test code = KRYSTLE) Association of [...] tests). Lab Interpretation Abnormal (test code = 33862-4) [facility] 12:58:04 Test Item Value Reference Range Interpretation Comments LIPASE (test code = 3536455462) 492 U/L 0-220 H Lab Interpretation (test code = Abnormal 69800-8) [facility]OLIC PANEL (44908)2023-04-16 12:58:04 Test Item Value Reference Range Interpretation Comments NA (test code = 142 mmol/L 135-145 6812838543) K (test code = 4.0 mmol/L 3.5-5.0 0263122348) CL (test code = 105 mmol/L 98-108 6256753046) CO2 TOTAL (test code = 28 mmol/L 23-31 0096930909) AGAP (test code = 9 2-16 2381732596) BUN (test code = 11 mg/dL 7-23 0195514686) GLUCOSE (test code = 115 mg/dL 70-110 H 1768816016) CREATININE (test code = 0.85 mg/dL 0.60-1.25 3745343553) TOTAL BILI (test code = 0.4 mg/dL 0.1-1.5 8763606469) CALCIUM (test code = 9.2 mg/dL 8.6-10.6 8458769135) T PROTEIN (test code = 7.6 g/dL 6.3-8.2 7410143290) ALBUMIN (test code = 4.4 g/dL 3.5-5.0 3687813289) ALK PHOS (test code = 52 U/L 34-122 0719193118) ALTv (test code = 23 U/L 5-50 1742-6) AST(SGOT) (test code = 33 U/L 13-40 3149300089) eGFR (test code = 95.4 mL/min/1.73m2 8757810350) KRYSTLE (test code = KRYSTLE) Association of [...] tests). Lab Interpretation Abnormal (test code = 72304-9) [facility] 12:58:04 Test Item Value Reference Range Interpretation Comments LIPASE (test code = 0479807051) 492 U/L 0-220 H Lab Interpretation (test code = Abnormal 51459-2) [facility] WITH [id number] 12:50:01 Test Item Value Reference Range Interpretation Comments WBC (test code = 6.75 See_Comment [Automated 1581-2) message] The sy stem which generated this result transmitted reference range : 4.20 - 10.70 10*3/?L. The reference range was not used to interpret this result as normal/abnormal . RBC (test code = 5.08 See_Comment [Automated 706-0) message] The sy stem which generated this result transmitted reference range : 4.26 - 5.52 10*6/?L. The reference range was not used to interpret this result as normal/abnormal . HGB (test code = 15.2 g/dL 12.2-16.4 718-7) HCT (test code = 43.6 % 38.4-49.3 4544-3) MCV (test code = 85.8 fL 81.7-95.6 787-2) MCH (test code = 29.9 pg 26.1-32.7 785-6) MCHC (test code = 34.9 g/dL 31.2-35.0 786-4) RDW-SD (test code = 41.4 fL 38.5-51.6 16169-8) RDW-CV (test code = 13.2 % 12.1-15.4 788-0) PLT (test code = 219 See_Comment [Automated 777-3) message] The sy stem which generated this result transmitted reference range : 150 - 328 10*3/ ?L. The reference r andrea was not used to interpret this result as normal/abnormal . MPV (test code = 9.5 fL 9.8-13.0 L 14154-5) NRBC/100 WBC (test 0.0 See_Comment [Automat ed code = 3540863970) message] The system which generated this result transmitted reference range : 0.0 - 10.0 /100 WBCs. The refer ence range was not u sed to interpret th is result as normal/abnormal . NRBC x10^3 (test code See_Comment [Auto mated = 0517514898) message] The s ystem which generated this result transmitted reference range : 10*3/?L. The reference range was not used to interpret this result as normal/abnormal . GRAN MAT (NEUT) % 46.9 % (test code = 770-8) IMM GRAN % (test code 0.10 % = 8389474819) LYMPH % (test code = 43.4 % 736-9) MONO % (test code = 8.4 % 5905-5) EOS % (test code = 0.9 % 713-8) BASO % (test code = 0.3 % 706-2) GRAN MAT x10^3(ANC) 3.16 10*3/uL 1.99-6.95 (test code = 6218377214) IMM GRAN x10^3 (test 0.00-0.06 code = 6690709197) LYMPH x10^3 (test code 2.93 10*3/uL 1.09-3.23 = 731-0) MONO x10^3 (test code 0.57 10*3/uL 0.36-1.02 = 742-7) EOS x10^3 (test code = 0.06 10*3/uL 0.06-0.53 711-2) BASO x10^3 (test code 0.01-0.09 = 704-7) Lab Interpretation Abnormal (test code = 63790-4) [facility] WITH [id number] 12:50:01 Test Item Value Reference Range Interpretation Comments WBC (test code = 6.75 See_Comment [Automated 6690-2) message] The sy stem which generated this result transmitted reference range : 4.20 - 10.70 10*3/?L. The reference range was not used to interpret this result as normal/abnormal . RBC (test code = 5.08 See_Comment [Automated 789-8) message] The sy stem which generated this result transmitted reference range : 4.26 - 5.52 10*6/?L. The reference range was not used to interpret this result as normal/abnormal . HGB (test code = 15.2 g/dL 12.2-16.4 718-7) HCT (test code = 43.6 % 38.4-49.3 4544-3) MCV (test code = 85.8 fL 81.7-95.6 787-2) MCH (test code = 29.9 pg 26.1-32.7 785-6) MCHC (test code = 34.9 g/dL 31.2-35.0 786-4) RDW-SD (test code = 41.4 fL 38.5-51.6 45714-5) RDW-CV (test code = 13.2 % 12.1-15.4 788-0) PLT (test code = 219 See_Comment [Automated 777-3) message] The sy stem which generated this result transmitted reference range : 150 - 328 10*3/ ?L. The reference r andrea was not used to interpret this result as normal/abnormal . MPV (test code = 9.5 fL 9.8-13.0 L 21833-5) NRBC/100 WBC (test 0.0 See_Comment [Automat ed code = 0902493452) message] The system which generated this result transmitted reference range : 0.0 - 10.0 /100 WBCs. The refer ence range was not u sed to interpret th is result as normal/abnormal . NRBC x10^3 (test code See_Comment [Auto mated = 6602610259) message] The s ystem which generated this result transmitted reference range : 10*3/?L. The reference range was not used to interpret this result as normal/abnormal . GRAN MAT (NEUT) % 46.9 % (test code = 770-8) IMM GRAN % (test code 0.10 % = 0307267510) LYMPH % (test code = 43.4 % 736-9) MONO % (test code = 8.4 % 5905-5) EOS % (test code = 0.9 % 713-8) BASO % (test code = 0.3 % 706-2) GRAN MAT x10^3(ANC) 3.16 10*3/uL 1.99-6.95 (test code = 3917389591) IMM GRAN x10^3 (test 0.00-0.06 code = 8905400532) LYMPH x10^3 (test code 2.93 10*3/uL 1.09-3.23 = 731-0) MONO x10^3 (test code 0.57 10*3/uL 0.36-1.02 = 742-7) EOS x10^3 (test code = 0.06 10*3/uL 0.06-0.53 711-2) BASO x10^3 (test code 0.01-0.09 = 704-7) Lab Interpretation Abnormal (test code = 66742-0) [facility]ATED[facility]2023-02-13 21:02:35 Test Item Value Reference Range Interpretation Comments POCT GLU (test code = 1914043183) 118 mg/dL 70-110 H Lab Interpretation (test code = Abnormal 71440-4) [facility] WITH [id number] 05:51:48 Test Item Value Reference Range Interpretation Comments WBC (test code = 7.64 See_Comment [Automated 6690-2) message] The sy stem which generated this result transmitted reference range : 4.20 - 10.70 10*3/?L. The reference range was not used to interpret this result as normal/abnormal . RBC (test code = 5.07 See_Comment [Automated 789-8) message] The sy stem which generated this result transmitted reference range : 4.26 - 5.52 10*6/?L. The reference range was not used to interpret this result as normal/abnormal . HGB (test code = 14.9 g/dL 12.2-16.4 718-7) HCT (test code = 43.3 % 38.4-49.3 4544-3) MCV (test code = 85.4 fL 81.7-95.6 787-2) MCH (test code = 29.4 pg 26.1-32.7 785-6) MCHC (test code = 34.4 g/dL 31.2-35.0 786-4) RDW-SD (test code = 38.5 fL 38.5-51.6 26679-3) RDW-CV (test code = 12.5 % 12.1-15.4 788-0) PLT (test code = 216 See_Comment [Automated 777-3) message] The sy stem which generated this result transmitted reference range : 150 - 328 10*3/ ?L. The reference r andrea was not used to interpret this result as normal/abnormal . MPV (test code = 10.0 fL 9.8-13.0 84863-6) NRBC/100 WBC (test 0.0 See_Comment [Automat ed code = 9140261276) message] The system which generated this result transmitted reference range : 0.0 - 10.0 /100 WBCs. The refer ence range was not u sed to interpret th is result as normal/abnormal . NRBC x10^3 (test code See_Comment [Auto mated = 2283727665) message] The s ystem which generated this result transmitted reference range : 10*3/?L. The reference range was not used to interpret this result as normal/abnormal . SEG % (test code = 36 % 33-76 28142-6) LYMPH % (test code = 48 % 14-54 87057-3) MONO % (test code = 13 % 0-4 H 31257-2) EOS % (test code = 3 % 0-3 45832-0) ANC (test code = 2.75 10*3/uL 1.99-6.95 753-4) Lab Interpretation Abnormal (test code = 18010-8) [facility]. METABOLIC PANEL (87324)2022-12-09 05:24:19 Test Item Value Reference Range Interpretation Comments NA (test code = 139 mmol/L 135-145 7668484280) K (test code = 3.8 mmol/L 3.5-5.0 3416301585) CL (test code = 105 mmol/L 98-108 9235570238) CO2 TOTAL (test code = 24 mmol/L 23-31 5928102673) AGAP (test code = 10 2-16 4642708431) BUN (test code = 11 mg/dL 7-23 9854859937) GLUCOSE (test code = 115 mg/dL 70-110 H 4767602205) CREATININE (test code = 0.93 mg/dL 0.60-1.25 4004957369) TOTAL BILI (test code = 0.8 mg/dL 0.1-1.9 1354021729) CALCIUM (test code = 9.3 mg/dL 8.6-10.6 7668996123) T PROTEIN (test code = 8.0 g/dL 6.3-8.2 5560278448) ALBUMIN (test code = 4.5 g/dL 3.5-5.0 4152066596) ALK PHOS (test code = 50 U/L 34-122 2375414888) ALTv (test code = 22 U/L 5-50 1742-6) AST(SGOT) (test code = 36 U/L 13-40 1996517375) eGFR (test code = 86.0 mL/min/1.73m2 1081591191) KRYSTLE (test code = KRYSTLE) Association of [...] tests). Lab Interpretation Abnormal (test code = 92144-8) [facility] Test Item Value Reference Range Interpretation Comments LIPASE (test code = 1412615850) 271 U/L 0-220 H Lab Interpretation (test code = Abnormal 51588-4) [facility] with Vfebcldaxvaz5184-27-40 22:09:52 Test Item Value Reference Range Interpretation Comments WBC (test code = See_Comment [Automated 9566-2) message] The sy stem which generated this result transmitted reference range : 4.20 - 10.70 10*3/?L. The reference range was not used to interpret this result as normal/abnormal . RBC (test code = See_Comment [Automated 929-2) message] The sy stem which generated this result transmitted reference range : 4.26 - 5.52 10*6/?L. The reference range was not used to interpret this result as normal/abnormal . HGB (test code = 13.9 g/dL 12.2-16.4 718-7) HCT (test code = 39.2 % 38.4-49.3 4544-3) MCV (test code = 84.3 fL 81.7-95.6 787-2) MCH (test code = 29.9 pg 26.1-32.7 785-6) MCHC (test code = 35.5 g/dL 31.2-35.0 H 786-4) RDW-SD (test code = 39.2 fL 38.5-51.6 74473-8) RDW-CV (test code = 12.9 % 12.1-15.4 788-0) PLT (test code = See_Comment [Automated 777-3) message] The sy stem which generated this result transmitted reference range : 150 - 328 10*3/ ?L. The reference r andrea was not used to interpret this result as normal/abnormal . MPV (test code = 9.0 fL 9.8-13.0 L 09212-2) NRBC/100 WBC (test See_Comment [Automat ed code = 5591975371) message] The system which generated this result transmitted reference range : 0.0 - 10.0 /100 WBCs. The refer ence range was not u sed to interpret th is result as normal/abnormal . NRBC x10^3 (test code See_Comment [Auto mated = 2057510684) message] The s ystem which generated this result transmitted reference range : 10*3/?L. The reference range was not used to interpret this result as normal/abnormal . GRAN MAT (NEUT) % 35.3 % (test code = 770-8) IMM GRAN % (test code 0.00 % = 9559640910) LYMPH % (test code = 56.0 % 736-9) MONO % (test code = 7.9 % 5905-5) EOS % (test code = 0.4 % 713-8) BASO % (test code = 0.4 % 706-2) GRAN MAT x10^3(ANC) 1.87 10*3/uL 1.99-6.95 L (test code = 8206149712) IMM GRAN x10^3 (test 0.00-0.06 code = 4225647801) LYMPH x10^3 (test code 2.97 10*3/uL 1.09-3.23 = 731-0) MONO x10^3 (test code 0.42 10*3/uL 0.36-1.02 = 742-7) EOS x10^3 (test code = 0.06-0.53 L 711-2) BASO x10^3 (test code 0.01-0.09 = 704-7) Lab Interpretation Abnormal (test code = 25576-6) [facility] METABOLIC PANEL (NA, K, CL, CO2, GLUCOSE, BUN, CREATININE, CA)2022-10-12 00:25:13 Test Item Value Reference Range Interpretation Comments NA (test code = 136 mmol/L 135-145 8225914728) K (test code = 3.5 mmol/L 3.5-5.0 6729660698) CL (test code = 103 mmol/L 98-108 0361641220) CO2 TOTAL (test code = 26 mmol/L 23-31 5898346641) AGAP (test code = 2-16 8580510552) BUN (test code = 14 mg/dL 7-23 4618006678) GLUCOSE (test code = 157 mg/dL 70-110 H 4262467762) CREATININE (test code = 0.80 mg/dL 0.60-1.25 2606788175) CALCIUM (test code = 8.4 mg/dL 8.6-10.6 L 2825281219) eGFR (test code = mL/min/1.73m2 5536424817) KRYSTLE (test code = KRYSTLE) Association of [...] tests). Lab Interpretation Abnormal (test code = 11444-4) [facility] (79305[facility] (ALB,T.PRO,BILI T,BU/BC,ALT,AST,ALK PHOS)2022-10-12 00:25:13 Test Item Value Reference Range Interpretation Comments TOTAL BILI (test code = 1746700644) 1.2 mg/dL 0.1-1.1 H BILI UNCON (test code = 2462209054) 1.0 mg/dL 0.1-1.1 BILI CONJ (test code = 9445142234) 0.0 mg/dL 0.0-0.3 T PROTEIN (test code = 0304084172) 7.1 g/dL 6.3-8.2 ALBUMIN (test code = 9875298401) 4.0 g/dL 3.5-5.0 ALK PHOS (test code = 5076890316) 59 U/L 34-122 ALTv (test code = 1742-6) 38 U/L 5-50 AST(SGOT) (test code = 9507337734) 61 U/L 13-40 H Lab Interpretation (test code = Abnormal 89359-6) [facility] Rock[facility] Confirmation (Lab Only)2022-10-11 21:35:47 Test Item Value Reference Range Interpretation Comments ABO & RH (test code O Positive Performe d at [facility] = 20) Laboratory Serv [facility] s [id number] Free: [phone] A No. [id number] [facility] RockType and Screen - ONCE [id number] 21:25:51 Test Item Value Reference Range Interpretation Comments ABO & RH (test code O POSITIVE Performe d at [facility] = 20) Laboratory Serv [facility] s [address]Xhsg Free: [phone] A No. [id number] IAT (test code = Negative Performed a t [facility] 1185) Laboratory Serv [facility] [address] [place] [address] [place] [id number] Free: [phone] A No. [id number] [facility] WITH [id number] 20:47:43 Test Item Value Reference Range Interpretation [...] RDW-SD (test code = 41.1 fL 38.5-51.6 82319-7) RDW-CV (test code = 13.2 % 12.1-15.4 788-0) PLT (test code = See_Comment [Automated 777-3) message] The sy stem which generated this result transmitted reference range : 150 - 328 10*3/ ?L. The reference r andrea was not used to interpret this result as normal/abnormal . MPV (test code = 9.5 fL 9.8-13.0 L 37288-1) NRBC/100 WBC (test See_Comment [Automat ed code = 8863283983) message] The system which generated this result transmitted reference range : 0.0 - 10.0 /100 WBCs. The refer ence range was not u sed to interpret th is result as normal/abnormal . NRBC x10^3 (test code See_Comment [Auto mated = 6392738344) message] The s [employer] which generated this result transmitted reference range : 10*3/?L. The reference range was not used to interpret this result as normal/abnormal . GRAN MAT (NEUT) % 38.2 % (test code = 770-8) IMM GRAN % (test code 0.00 % = 8130062775) LYMPH % (test code = 53.7 % 736-9) MONO % (test code = 7.5 % 5905-5) EOS % (test code = 0.3 % 713-8) BASO % (test code = 0.3 % 706-2) GRAN MAT x10^3(ANC) 2.46 10*3/uL 1.99-6.95 (test code = 7078396014) IMM GRAN x10^3 (test 0.00-0.06 code = 3746318025) LYMPH x10^3 (test code 3.46 10*3/uL 1.09-3.23 H = 731-0) MONO x10^3 (test code 0.48 10*3/uL 0.36-1.02 = 742-7) EOS x10^3 (test code = 0.06-0.53 L 711-2) BASO x10^3 (test code 0.01-0.09 = 704-7) Lab Interpretation Abnormal (test code = 59951-0) [facility] RockLIPID PANEL (67530)(TOTAL CHOLESTEROL, TRIGLYCERIDES, HDL)2022-10-11 20:32:44 Test Item Value Reference Range Interpretation Comments CHOL (test code = 195 mg/dL 120-200 2067973790) HDL (test code = 36 mg/dL See_Comment L [Automated message] 4795242654) The system [employer] generated this result transmit delvin reference range : >=40. The refer ence range was not u sed to interpret th is result as normal/abnormal . HDLC RATIO (test code = See_Comment H [Au tomated message] 2536359957) The system [employer] generated this result transmit delvin reference range : <=5.0. The refe rence range was not u sed to interpret th is result as normal/abnormal . TRIG (test code = 84 mg/dL 30-170 0084011889) LDL CHOL (test code = 142 mg/dL See_Comment [Auto mated message] 70624-6) The system whic h generated this result transmit delvin reference range : <=160. The refe rence range was not u sed to interpret th is result as normal/abnormal . VLDL (test code = 17 mg/dL 5-60 2539384691) Lab Interpretation (test Abnormal code = 03753-3) [facility] RockN-TERMINAL [id number] 14:23:55 Test Item Value Reference Range Interpretation Comments NT-proBNP (test code See_Comment [Autom ated = 5046983530) message] The system which generated this result transmitted reference range : <=125. The reference range was not used to interpret this result as normal/abnormal . KRYSTLE (test code = KRYSTLE) Biotin has been reported to cause a negative bias, interpret results relative to patient's use of biotin. Lab Interpretation Normal (test code = 40766-2) [facility] RockACTIVATED PARTIAL THRMPLAS [id number] 14:23:25 Test Item Value Reference Range Interpretation Comments APTT Patient (test See_Comment [Automat ed code = 3173-2) message] The system which generated this result transmitted reference range : 23 - 38 Seconds . The reference range was not used to interpr et this result as normal/abnormal . KRYSTLE (test code = KRYSTLE) The [facility] patient population mean normal value for aPTT is 30 seconds. Lab Interpretation Normal (test code = 46808-0) [facility] RockLIPASE2023-01-28 14:23:05 Test Item Value Reference Range Interpretation Comments LIPASE (test code = 0992917347) 502 U/L 0-220 H Lab Interpretation (test code = Abnormal 94823-7[facility]55923[facility]11 14:23:05 Test Item Value Reference Range Interpretation Comments NA (test code = 139 mmol/L 135-145 9996413098) K (test code = 5.0 mmol/L 3.5-5.0 Slight 6708270885) hemolysis CL (test code = 103 mmol/L 98-108 0619355871) CO2 TOTAL (test code 28 mmol/L 23-31 = 1944926152) AGAP (test code = 2-16 5878737950) BUN (test code = 17 mg/dL 7-23 Slight 8105391379) hemolysis GLUCOSE (test code = 103 mg/dL 70-110 8864941576) CREATININE (test code 0.80 mg/dL 0.60-1.25 = 7668871329) TOTAL BILI (test code 1.6 mg/dL 0.1-1.1 H = 9997687743) CALCIUM (test code = 9.0 mg/dL 8.6-10.6 1273632643) T PROTEIN (test code 8.4 g/dL 6.3-8.2 H = 5270805742) ALBUMIN (test code = 4.8 g/dL 3.5-5.0 7186956395) ALK PHOS (test code = 57 U/L 34-122 Slight 8270340403) hemolysis ALTv (test code = 49 U/L 5-50 1742-6) AST(SGOT) (test code 77 U/L 13-40 H Slight = 4319763418) hemolysis eGFR (test code = mL/min/1.73m2 6808436130) KRYSTLE (test code = KRYSTLE) Association of [...] tests). Lab Interpretation Abnormal (test code = 48709-6) [facility] RockTROPONIN [id number] 14:23:05 Test Item Value Reference Interpretation Comments Range TROPONIN I (test 0.018 ng/mL See_Comment [Automated code = 4820434842) message] The system which generated this result [...] biotin. Lab Interpretation Normal (test code = 75416-2) [facility] RockPROTHROMBIN TIME / [id number] 14:20:24 Test Item Value Reference Range Interpretation [...] tions. Lab Interpretation (test Normal code = 00304-6) [facility] RockCB WITH [id number] 13:55:05 Test Item Value Reference Range Interpretation [...] RDW-SD (test code = 40.4 fL 38.5-51.6 79035-7) RDW-CV (test code = 13.0 % 12.1-15.4 788-0) PLT (test code = See_Comment [Automated 777-3) message] The sy stem which generated this result transmitted reference range : 150 - 328 10*3/ ?L. The reference r andrea was not used to interpret this result as normal/abnormal . MPV (test code = 9.1 fL 9.8-13.0 L 90392-5) NRBC/100 WBC (test See_Comment [Automat ed code = 9641338389) message] The system which generated this result transmitted reference range : 0.0 - 10.0 /100 WBCs. The refer ence range was not u sed to interpret th is result as normal/abnormal . NRBC x10^3 (test code See_Comment [Auto mated = 9063102751) message] The s ystem which generated this result transmitted reference range : 10*3/?L. The reference range was not used to interpret this result as normal/abnormal . GRAN MAT (NEUT) % 53.2 % (test code = 770-8) IMM GRAN % (test code 0.10 % = 8548675329) LYMPH % (test code = 36.6 % 736-9) MONO % (test code = 9.3 % 5905-5) EOS % (test code = 0.5 % 713-8) BASO % (test code = 0.3 % 706-2) GRAN MAT x10^3(ANC) 4.25 10*3/uL 1.99-6.95 (test code = 3960265436) IMM GRAN x10^3 (test 0.00-0.06 code = 9778295985) LYMPH x10^3 (test code 2.92 10*3/uL 1.09-3.23 = 731-0) MONO x10^3 (test code 0.74 10*3/uL 0.36-1.02 = 742-7) EOS x10^3 (test code = 0.04 10*3/uL 0.06-0.53 L 711-2) BASO x10^3 (test code 0.01-0.09 = 704-7) Lab Interpretation Abnormal (test code = 36488-1) [facility] RockCOMP. METABOLIC PANEL (63036)2022-06-09 13:23:22 Test Item Value Reference Range Interpretation Comments NA (test code = 138 mmol/L 135-145 0608616402) K (test code = 4.5 mmol/L 3.5-5 3108089878) CL (test code = 106 mmol/L 98-108 1212074965) CO2 TOTAL (test code 24 mmol/L 23-31 = 5930223346) AGAP (test code = 2-16 1637629709) BUN (test code = 18 mg/dL 7-23 9812763471) GLUCOSE (test code = 97 mg/dL 70-110 6894351551) CREATININE (test code 0.98 mg/dL 0.6-1.25 = 2647830266) TOTAL BILI (test code 0.5 mg/dL 0.1-1.1 = 3613696608) CALCIUM (test code = 9.3 mg/dL 8.6-10.6 4208834204) T PROTEIN (test code 7.3 g/dL 6.3-8.2 = 5102196579) ALBUMIN (test code = 4.5 g/dL 3.5-5 0659430083) ALK PHOS (test code = 65 U/L 34-122 3789783225) ALTv (test code = 27 U/L 5-50 1742-6) AST(SGOT) (test code 33 U/L 13-40 = 1793860394) eGFR (test code = mL/min/1.73m2 8992716512) KRYSTLE (test code = KRYSTLE) Association of [...] [facility] RockL[facility]2022[facility] 13:23:01 Test Item Value Reference Range Interpretation Comments LIPASE (test code = 2996311170) 596 U/L 0-220 H Lab Interpretation (test code = Abnormal 47449-2) [facility] RockCB WITH [id number] 13:09:00 Test Item Value Reference Range Interpretation [...] HGB (test code = 15.0 g/dL 12.2-16.4 718-7) HCT (test code = 42.1 % 38.4-49.3 4544-3) MCV (test code = 85.4 fL 81.7-95.6 787-2) MCH (test code = 30.4 pg 26.1-32.7 785-6) MCHC (test code = 35.6 g/dL 31.2-35 H 786-4) RDW-SD (test code = 38.3 fL 38.5-51.6 L 74657-0) RDW-CV (test code = 12.3 % 12.1-15.4 788-0) PLT (test code = See_Comment [Automated 777-3) message] The sy stem which generated this result transmitted reference range : 150 - 328 10*3/ ?L. The reference r andrea was not used to interpret this result as normal/abnormal . MPV (test code = 9.2 fL 9.8-13 L 46273-6) NRBC/100 WBC (test See_Comment [Automat ed code = 5290257249) message] The system which generated this result transmitted reference range : 0.0 - 10.0 /100 WBCs. The refer ence range was not u sed to interpret th is result as normal/abnormal . NRBC x10^3 (test code See_Comment [Auto mated = 3470638553) message] The s ystem which generated this result transmitted reference range : 10*3/?L. The reference range was not used to interpret this result as normal/abnormal . GRAN MAT (NEUT) % 47.3 % (test code = 770-8) IMM GRAN % (test code 0.30 % = 1671803358) LYMPH % (test code = 43.8 % 736-9) MONO % (test code = 7.8 % 5905-5) EOS % (test code = 0.5 % 713-8) BASO % (test code = 0.3 % 706-2) GRAN MAT x10^3(ANC) 3.04 10*3/uL 1.99-6.95 (test code = 4306604604) IMM GRAN x10^3 (test 0-0.06 code = 8096469045) LYMPH x10^3 (test code 2.81 10*3/uL 1.09-3.23 = 731-0) MONO x10^3 (test code 0.50 10*3/uL 0.36-1.02 = 742-7) EOS x10^3 (test code = 0.03 10*3/uL 0.06-0.53 L 711-2) BASO x10^3 (test code 0.01-0.09 = 704-7) Lab Interpretation Abnormal (test code = 96258-3) [facility] METABOLIC PANEL (NA, K, CL, CO2, GLUCOSE, BUN, CREATININE, CA)2021-11-01 10:40:12 Test Item Value Reference Range Interpretation Comments NA (test code = 136 mmol/L 135-145 0436908482) K (test code = 4.2 mmol/L 3.5-5.0 3156944718) CL (test code = 104 mmol/L 98-108 5014135723) CO2 TOTAL (test code = 31 mmol/L 23-31 3233795226) AGAP (test code = 2-16 L 0351080999) BUN (test code = 15 mg/dL 7-23 6795452570) GLUCOSE (test code = 91 mg/dL 70-110 7591057459) CREATININE (test code = 0.96 mg/dL 0.60-1.25 5248846734) CALCIUM (test code = 8.5 mg/dL 8.6-10.6 L 3768675064) eGFR (test code = mL/min/1.73m2 9359905178) KRYSTLE (test code = KRYSTLE) Association of [...] tests). Lab Interpretation Abnormal (test code = 51916-3) [facility] RockMAGNESIUM2022-02-18 10:40:12 Test Item Value Reference Range Interpretation Comments MAGNESIUM (test code = 0563287767) 1.7 mg/dL 1.7-2.4 Lab Interpretation (test code = Normal 07516-6) [facility] RockPHOSPHORUS2022-02-18 10:39:52 Test Item Value Reference Range Interpretation Comments PHOSPHORUS (test code = 4252047444) 4.4 mg/dL 2.5-5.0 Lab Interpretation (test code = Normal 12473-5) [facility] RockCB WITH [id number] 10:25:11 Test Item Value Reference Range Interpretation Comments WBC (test code = See_Comment [Automated 2821-2) message] The sy stem which generated this [...] RDW-SD (test code = 38.5 fL 38.5-51.6 26353-6) RDW-CV (test code = 12.3 % 12.1-15.4 788-0) PLT (test code = See_Comment [Automated 777-3) message] The sy stem which generated this result transmitted reference range : 150 - 328 10*3/ ?L. The reference r andrea was not used to interpret this result as normal/abnormal . MPV (test code = 9.6 fL 9.8-13.0 L 57988-0) NRBC/100 WBC (test See_Comment [Automat ed code = 4978946635) message] The system which generated this result transmitted reference range : 0.0 - 10.0 /100 WBCs. The refer ence range was not u sed to interpret th is result as normal/abnormal . NRBC x10^3 (test code <0.01 See_Comment [Auto mated = 7333149985) message] The s ystem which generated this result transmitted reference range : 10*3/?L. The reference range was not used to interpret this result as normal/abnormal . GRAN MAT (NEUT) % 49.5 % (test code = 770-8) IMM GRAN % (test code 0.30 % = 0501871043) LYMPH % (test code = 39.4 % 736-9) MONO % (test code = 9.7 % 5905-5) EOS % (test code = 0.8 % 713-8) BASO % (test code = 0.3 % 706-2) GRAN MAT x10^3(ANC) 3.13 10*3/uL 1.99-6.95 (test code = 1147664614) IMM GRAN x10^3 (test <0.03 0.00-0.06 code = 0832350512) LYMPH x10^3 (test code 2.49 10*3/uL 1.09-3.23 = 731-0) MONO x10^3 (test code 0.61 10*3/uL 0.36-1.02 = 742-7) EOS x10^3 (test code = 0.05 10*3/uL 0.06-0.53 L 711-2) BASO x10^3 (test code <0.03 0.01-0.09 = 704-7) Lab Interpretation Abnormal (test code = 44656-0) [facility] RockN-TERMINAL [id number] 17:32:56 Test Item Value Reference Range Interpretation Comments NT-proBNP (test code 13 pg/mL See_Comment [Autom ated = 4530895701) message] The system which generated this result transmitted reference range : <=125. The reference range was not used to interpret this result as normal/abnormal . KRYSTLE (test code = KRYSTLE) Biotin has been reported to cause a negative bias, interpret results relative to patient's use of biotin. Lab Interpretation Normal (test code = 08713-3) [facility] RockN-TERMINAL [id number] 10:50:49 Test Item Value Reference Range Interpretation Comments NT-proBNP (test code <11 See_Comment [Autom ated = 2061669122) message] The system which generated this result transmitted reference range : <=125 pg/mL. Th e reference range was not used to interpret this result as normal/abnormal . KRYSTLE (test code = KRYSTLE) Biotin has been reported to cause a negative bias, interpret results relative to patient's use of biotin. Lab Interpretation Normal (test code = 33986-9) [facility] RockTROPONIN [id number] 10:36:56 Test Item Value Reference Interpretation Comments Range TROPONIN I (test 0.004 ng/mL See_Comment [Automated code = 4656808167) message] The system which generated this result [...] biotin. Lab Interpretation Normal (test code = 41034-6) [facility]. METABOLIC PANEL (00165)2021-10-31 10:33:50 Test Item Value Reference Range Interpretation Comments NA (test code = 139 mmol/L 135-145 3930720447) K (test code = 4.0 mmol/L 3.5-5.0 0500645980) CL (test code = 109 mmol/L 98-108 H 7453655280) CO2 TOTAL (test code = 27 mmol/L 23-31 1750065597) AGAP (test code = 2-16 7589274506) BUN (test code = 16 mg/dL 7-23 0340321511) GLUCOSE (test code = 97 mg/dL 70-110 7778512824) CREATININE (test code = 1.00 mg/dL 0.60-1.25 6245314488) TOTAL BILI (test code = 1.0 mg/dL 0.1-1.7 7155595552) CALCIUM (test code = 8.7 mg/dL 8.6-10.6 9383260947) T PROTEIN (test code = 7.9 g/dL 6.3-8.2 6992842096) ALBUMIN (test code = 4.4 g/dL 3.5-5.0 2560161337) ALK PHOS (test code = 60 U/L 34-122 8706317662) ALTv (test code = 56 U/L 5-50 H 1742-6) AST(SGOT) (test code = 49 U/L 13-40 H 2494316375) eGFR (test code = mL/min/1.73m2 1428937200) KRYSTLE (test code = KRYSTLE) Association of [...] tests). Lab Interpretation Abnormal (test code = 28738-7) [facility] RockMagnesium [id number] 10:25:32 Test Item Value Reference Range Interpretation Comments MAGNESIUM (test code = 4742633371) 1.8 mg/dL 1.7-2.4 Lab Interpretation (test code = Normal 68389-8) [facility] RockPHOSPHORUS2022-02-17 10:25:12 Test Item Value Reference Range Interpretation Comments PHOSPHORUS (test code = 1833840300) 3.9 mg/dL 2.5-5.0 Lab Interpretation (test code = Normal 53599-8) [facility] RockCREATINE [id number] 10:24:52 Test Item Value Reference Range Interpretation Comments CK (test code = 1993526814) 215 U/L 33-194 H Lab Interpretation (test code = Abnormal 65255-5) [facility] with [id number] 10:18:09 Test Item Value Reference Range Interpretation [...] RDW-SD (test code = 41.3 fL 38.5-51.6 61123-3) RDW-CV (test code = 13.0 % 12.1-15.4 788-0) PLT (test code = See_Comment [Automated 777-3) message] The sy stem which generated this result transmitted reference range : 150 - 328 10*3/ ?L. The reference r andrea was not used to interpret this result as normal/abnormal . MPV (test code = 10.0 fL 9.8-13.0 68759-9) NRBC/100 WBC (test See_Comment [Automat ed code = 8013662986) message] The system which generated this result transmitted reference range : 0.0 - 10.0 /100 WBCs. The refer ence range was not u sed to interpret th is result as normal/abnormal . NRBC x10^3 (test code <0.01 See_Comment [Auto mated = 1193941391) message] The s ystem which generated this result transmitted reference range : 10*3/?L. The reference range was not used to interpret this result as normal/abnormal . GRAN MAT (NEUT) % 46.4 % (test code = 770-8) IMM GRAN % (test code 0.20 % = 4405753535) LYMPH % (test code = 44.0 % 736-9) MONO % (test code = 8.3 % 5905-5) EOS % (test code = 0.7 % 713-8) BASO % (test code = 0.4 % 706-2) GRAN MAT x10^3(ANC) 3.73 10*3/uL 1.99-6.95 (test code = 7024659060) IMM GRAN x10^3 (test <0.03 0.00-0.06 code = 6645144326) LYMPH x10^3 (test code 3.55 10*3/uL 1.09-3.23 H = 731-0) MONO x10^3 (test code 0.67 10*3/uL 0.36-1.02 = 742-7) EOS x10^3 (test code = 0.06 10*3/uL 0.06-0.53 711-2) BASO x10^3 (test code 0.03 10*3/uL 0.01-0.09 = 704-7) Lab Interpretation Abnormal (test code = 26917-0) [facility] RockPROTHROMBIN TIME / [id number] 10:18:09 Test Item Value Reference Range Interpretation Comments PROTIME PATIENT (test See_Comment [Auto mated message] code = 5964-2) The system ich generated this result transmitted ref erence range: 12.0 - 1 4.7 Seconds. The re ference range was not u sed to interpret this result as normal/abnor mal. INR (test code = 6301-6) Nor mal INR <1.1; Warfarin Therap eutic range 2.0 to 3. 0 or 2.5 to 3.5, dep ending upon the indica tions. Lab Interpretation (test Normal code = 63663-1) [facility] RockTROPONIN [id number] 07:43:50 Test Item Value Reference Interpretation Comments Range TROPONIN I (test 0.005 ng/mL See_Comment [Automated code = [id number]) message] The system which generated this result [...] biotin. Lab Interpretation Normal (test code = 45749-3) [facility]. METABOLIC PANEL (21607)2021-10-30 20:56:25 Test Item Value Reference Range Interpretation Comments NA (test code = 139 mmol/L 135-145 [id number]) K (test code = 4.8 mmol/L 3.5-5.0 9431312927) CL (test code = 105 mmol/L 98-108 7710547200) CO2 TOTAL (test code = 26 mmol/L 23-31 4438581830) AGAP (test code = 2-16 8872785502) BUN (test code = 18 mg/dL 7-23 5208991944) GLUCOSE (test code = 135 mg/dL 70-110 H [id number]) CREATININE (test code = 0.98 mg/dL 0.60-1.25 0218858857) TOTAL BILI (test code = 0.8 mg/dL 0.1-1.2 4929256191) CALCIUM (test code = 10.0 mg/dL 8.6-10.6 6355048070) T PROTEIN (test code = 10.3 g/dL 6.3-8.2 H 1026686967) ALBUMIN (test code = 5.5 g/dL 3.5-5.0 H 1251787937) ALK PHOS (test code = 74 U/L 34-122 8222514172) ALTv (test code = 69 U/L 5-50 H 1742-6) AST(SGOT) (test code = 59 U/L 13-40 H 1488299092) eGFR (test code = mL/min/1.73m2 4728765055) KRYSTLE (test code = KRYSTLE) Association of [...] tests). Lab Interpretation Abnormal (test code = 25237-8) [facility] 20[facility]56:05 Test Item Value Reference Range Interpretation Comments LIPASE (test code = 5043575979) 70 U/L 0-220 Lab Interpretation (test code = Normal 51069-5) [facility] RockCB WITH [id number] 20:34:20 Test Item Value Reference Range Interpretation [...] RDW-SD (test code = 40.6 fL 38.5-51.6 44658-6) RDW-CV (test code = 12.8 % 12.1-15.4 788-0) PLT (test code = See_Comment [Automated 777-3) message] The sy stem which generated this result transmitted reference range : 150 - 328 10*3/ ?L. The reference r andrea was not used to interpret this result as normal/abnormal . MPV (test code = 9.2 fL 9.8-13.0 L 76579-8) NRBC/100 WBC (test See_Comment [Automat ed code = 9044674662) message] The system which generated this result transmitted reference range : 0.0 - 10.0 /100 WBCs. The refer ence range was not u sed to interpret th is result as normal/abnormal . NRBC x10^3 (test code <0.01 See_Comment [Auto mated = 2303256992) message] The s ystem which generated this result transmitted reference range : 10*3/?L. The reference range was not used to interpret this result as normal/abnormal . GRAN MAT (NEUT) % 67.1 % (test code = 770-8) IMM GRAN % (test code 0.40 % = 4236326851) LYMPH % (test code = 24.5 % 736-9) MONO % (test code = 7.6 % 5905-5) EOS % (test code = 0.1 % 713-8) BASO % (test code = 0.3 % 706-2) GRAN MAT x10^3(ANC) 7.34 10*3/uL 1.99-6.95 H (test code = 7123492906) IMM GRAN x10^3 (test 0.04 10*3/uL 0.00-0.06 code = 1215771533) LYMPH x10^3 (test code 2.67 10*3/uL 1.09-3.23 = 731-0) MONO x10^3 (test code 0.83 10*3/uL 0.36-1.02 = 742-7) EOS x10^3 (test code = <0.03 0.06-0.53 L 711-2) BASO x10^3 (test code 0.03 10*3/uL 0.01-0.09 = 704-7) Lab Interpretation Abnormal (test code = 71320-4) [facility] [id number] 05:55:54 Test Item Value Reference Range Interpretation Comments CK (test code = 2077749894) 3682 U/L 33-194 H Lab Interpretation (test code = Abnormal 66306-6) [facility] [id number] 05:55:54 Test Item Value Reference Range Interpretation Comments CK (test code = 7435442670) 3682 U/L 33-194 H Lab Interpretation (test code = Abnormal 38403-9) [facility] (NA, K, CL, CO2, GLUCOSE, BUN, CREATININE, CA)2021-05-24 05:02:27 Test Item Value Reference Range Interpretation Comments NA (test code = 137 mmol/L 135-145 4517516139) K (test code = 3.6 mmol/L 3.5-5.0 2127813390) CL (test code = 105 mmol/L 98-108 4963926142) CO2 TOTAL (test code = 23 mmol/L 23-31 1877844631) AGAP (test code = 2-16 9884599472) BUN (test code = 26 mg/dL 7-23 H 4466861349) GLUCOSE (test code = 95 mg/dL 70-110 7277163075) CREATININE (test code = 1.31 mg/dL 0.60-1.25 H 3757887495) CALCIUM (test code = 8.6 mg/dL 8.6-10.6 9074170622) eGFR (test code = mL/min/1.73m2 9618618242) KRYSTLE (test code = KRYSTLE) Association of [...] tests). Lab Interpretation Abnormal (test code = 41540-8) [facility] METABOLIC PANEL (NA, K, CL, CO2, GLUCOSE, BUN, CREATININE, CA)2021-05-24 05:02:27 Test Item Value Reference Range Interpretation Comments NA (test code = 137 mmol/L 135-145 6877298406) K (test code = 3.6 mmol/L 3.5-5.0 1290125342) CL (test code = 105 mmol/L 98-108 4333889207) CO2 TOTAL (test code = 23 mmol/L 23-31 9389223185) AGAP (test code = 2-16 7823602181) BUN (test code = 26 mg/dL 7-23 H 8763625920) GLUCOSE (test code = 95 mg/dL 70-110 9677626321) CREATININE (test code = 1.31 mg/dL 0.60-1.25 H 0782321023) CALCIUM (test code = 8.6 mg/dL 8.6-10.6 0493928500) eGFR (test code = mL/min/1.73m2 1086834275) KRYSTLE (test code = KRYSTLE) Association of [...] tests). Lab Interpretation Abnormal (test code = 59932-8) [facility] RockMELISSA [id number] 02:56:10 Test Item Value Reference Interpretation Comments Range TROPONIN I (test 0.004 ng/mL See_Comment [Automated code = 2770090924) message] The system which generated this result [...] biotin. Lab Interpretation Normal (test code = 79535-8) [id number] 02:56:10 Test Item Value Reference Interpretation Comments Range TROPONIN I (test 0.004 ng/mL See_Comment [Automated code = 7216803929) message] The system which generated this result [...] biotin. Lab Interpretation Normal (test code = 72276-6) [facility] RockCREAT[facility] [id number] 02:41:54 Test Item Value Reference Range Interpretation Comments CK (test code = 4820845634) 4607 U/L 33-194 H Lab Interpretation (test code = Abnormal 67848-4) [facility] [id number] 02:41:54 Test Item Value Reference Range Interpretation Comments CK (test code = 2595446500) 4607 U/L 33-194 H Lab Interpretation (test code = Abnormal 54396-3) [facility] RockN-TERMINAL [id number] 02:33:28 Test Item Value Reference Range Interpretation Comments NT-proBNP (test code 14 pg/mL See_Comment [Autom ated = 0377157997) message] The system which generated this result transmitted reference range : <=125. The reference range was not used to interpret this result as normal/abnormal . KRYSTLE (test code = KRYSTLE) Biotin has been reported to cause a negative bias, interpret results relative to patient's use of biotin. Lab Interpretation Normal (test code = 10464-8) [facility] Rock[facility] [id number] 02:33:28 Test Item Value Reference Range Interpretation Comments NT-proBNP (test code 14 pg/mL See_Comment [Autom ated = 4634163464) message] The system which generated this result transmitted reference range : <=125. The reference range was not used to interpret this result as normal/abnormal . KRYSTLE (test code = KRYSTLE) Biotin has been reported to cause a negative bias, interpret results relative to patient's use of biotin. Lab Interpretation Normal (test code = 23257-6) [facility]URINALYSIS2021-09-10 02:29:35 Test Item Value Reference Range Interpretation Comments APPEARANCE (test code = Clear Clear 1384257265) COLOR (test code = Yellow Yellow 8478146404) PH (test code = 4.8-8.0 9246848348) SP GRAVITY (test code = 1.003-1.030 9033281116) GLU U QUAL (test code = Normal Normal 6493564165) BLOOD (test code = Negative Negative 3466559452) KETONES (test code = Negative Negative 9553284150) PROTEIN (test code = Negative Negative 2887-8) UROBILIN (test code = 2.0 mg/dL Normal A 1400350859) BILIRUBIN (test code = Negative Negative 0975729573) NITRITE (test code = Negative Negative 4282624054) LEUK MO (test code = Negative Negative 7818797284) RBC/HPF (test code = See_Comment [Autom ated message] 9839152054) The system whic h generated this result transmit delvin reference range : 0 - 3 HPF. The refe rence range was not u sed to interpret th is result as normal/abnormal . WBC/HPF (test code = See_Comment [Autom ated message] 6085289965) The system [employer] generated this result transmit delvin reference range : 0 - 5 HPF. The refe rence range was not u sed to interpret th is result as normal/abnormal . BACTERIA (test code = Negative Negative 5788817394) MUCOUS (test code = Slight Negative LPF A 1698310042) SQ EPITH (test code = <1 HPF 2995985210) Lab Interpretation (test Abnormal code = 06096-1) [facility]2021-09-10 02:29:35 Test Item Value Reference Range Interpretation Comments APPEARANCE (test code = Clear Clear 0541529115) COLOR (test code = Yellow Yellow 4145985824) PH (test code = 4.8-8.0 8823762917) SP GRAVITY (test code = 1.003-1.030 1575258491) GLU U QUAL (test code = Normal Normal 3857045330) BLOOD (test code = Negative Negative 6259616819) KETONES (test code = Negative Negative 3340924398) PROTEIN (test code = Negative Negative 2887-8) UROBILIN (test code = 2.0 mg/dL Normal A 2963905189) BILIRUBIN (test code = Negative Negative 8522268821) NITRITE (test code = Negative Negative 5858871791) LEUK MO (test code = Negative Negative 7875634646) RBC/HPF (test code = See_Comment [Autom ated message] 2998203345) The system [employer] generated this result transmit delvin reference range : 0 - 3 HPF. The refe rence range was not u sed to interpret th is result as normal/abnormal . WBC/HPF (test code = See_Comment [Autom ated message] 2634304319) The system [employer] generated this result transmit delvin reference range : 0 - 5 HPF. The refe rence range was not u sed to interpret th is result as normal/abnormal . BACTERIA (test code = Negative Negative 9581198886) MUCOUS (test code = Slight Negative LPF A 2998134912) SQ EPITH (test code = <1 HPF 8767141357) Lab Interpretation (test Abnormal code = 65661-2) [facility]COM[facility] METABOLIC PANEL (12875)2021-05-24 02:25:07 Test Item Value Reference Range Interpretation Comments NA (test code = 137 mmol/L 135-145 4653101748) K (test code = 3.1 mmol/L 3.5-5.0 L 6176101172) CL (test code = 102 mmol/L 98-108 1635862312) CO2 TOTAL (test code = 22 mmol/L 23-31 L 9647904496) AGAP (test code = 2-16 0328147577) BUN (test code = 28 mg/dL 7-23 H 6271768741) GLUCOSE (test code = 132 mg/dL 70-110 H 5128456060) CREATININE (test code = 1.77 mg/dL 0.60-1.25 H 3438161987) TOTAL BILI (test code = 1.0 mg/dL 0.1-1.4 6699693202) CALCIUM (test code = 9.4 mg/dL 8.6-10.6 1756605404) T PROTEIN (test code = 9.4 g/dL 6.3-8.2 H 3463878355) ALBUMIN (test code = 5.0 g/dL 3.5-5.0 2167273278) ALK PHOS (test code = 79 U/L 34-122 6360270865) ALTv (test code = 112 U/L 5-50 H 1742-6) AST(SGOT) (test code = 152 U/L 13-40 H 9883352960) eGFR (test code = mL/min/1.73m2 7838167370) KRYSTLE (test code = KRYSTLE) Association of [...] tests). Lab Interpretation Abnormal (test code = 81936-3) [facility]. METABOLIC PANEL (55060)2021-05-24 02:25:07 Test Item Value Reference Range Interpretation Comments NA (test code = 137 mmol/L 135-145 6101091620) K (test code = 3.1 mmol/L 3.5-5.0 L 2481149149) CL (test code = 102 mmol/L 98-108 4632354892) CO2 TOTAL (test code = 22 mmol/L 23-31 L 3911348334) AGAP (test code = 2-16 1646600194) BUN (test code = 28 mg/dL 7-23 H 0332923473) GLUCOSE (test code = 132 mg/dL 70-110 H 8464633423) CREATININE (test code = 1.77 mg/dL 0.60-1.25 H 9751923860) TOTAL BILI (test code = 1.0 mg/dL 0.1-1.5 2097924563) CALCIUM (test code = 9.4 mg/dL 8.6-10.6 0962722311) T PROTEIN (test code = 9.4 g/dL 6.3-8.2 H 2373507543) ALBUMIN (test code = 5.0 g/dL 3.5-5.0 6362411233) ALK PHOS (test code = 79 U/L 34-122 0512772835) ALTv (test code = 112 U/L 5-50 H 1742-6) AST(SGOT) (test code = 152 U/L 13-40 H 2834615167) eGFR (test code = mL/min/1.73m2 3293368865) KRYSTLE (test code = KRYSTLE) Association of [...] tests). Lab Interpretation Abnormal (test code = 81905-0) [facility] WITH [id number] 02:03:22 Test Item Value Reference Range Interpretation Comments WBC (test code = See_Comment [Automated 1147-2) message] The sy stem which generated this result transmitted reference range : 4.20 - 10.70 10*3/?L. The reference range was not used to interpret this result as normal/abnormal . RBC (test code = See_Comment [Automated 018-0) message] The sy stem which generated this [...] RDW-SD (test code = 39.7 fL 38.5-51.6 51841-4) RDW-CV (test code = 12.7 % 12.1-15.4 788-0) PLT (test code = See_Comment [Automated 777-3) message] The sy stem which generated this result transmitted reference range : 150 - 328 10*3/ ?L. The reference r andrea was not used to interpret this result as normal/abnormal . MPV (test code = 9.7 fL 9.8-13.0 L 96068-6) NRBC/100 WBC (test See_Comment [Automat ed code = 6173945813) message] The system which generated this result transmitted reference range : 0.0 - 10.0 /100 WBCs. The refer ence range was not u sed to interpret th is result as normal/abnormal . NRBC x10^3 (test code <0.01 See_Comment [Auto mated = 2703675507) message] The s ystem which generated this result transmitted reference range : 10*3/?L. The reference range was not used to interpret this result as normal/abnormal . GRAN MAT (NEUT) % 45.9 % (test code = 770-8) IMM GRAN % (test code 0.20 % = 3263352970) LYMPH % (test code = 41.7 % 736-9) MONO % (test code = 11.6 % 5905-5) EOS % (test code = 0.3 % 713-8) BASO % (test code = 0.3 % 706-2) GRAN MAT x10^3(ANC) 3.95 10*3/uL 1.99-6.95 (test code = 2314310236) IMM GRAN x10^3 (test <0.03 0.00-0.06 code = 3214742946) LYMPH x10^3 (test code 3.60 10*3/uL 1.09-3.23 H = 731-0) MONO x10^3 (test code 1.00 10*3/uL 0.36-1.02 = 742-7) EOS x10^3 (test code = 0.03 10*3/uL 0.06-0.53 L 711-2) BASO x10^3 (test code 0.03 10*3/uL 0.01-0.09 = 704-7) Lab Interpretation Abnormal (test code = 99749-2) [facility] WITH [id number] 02:03:22 Test Item Value Reference Range Interpretation Comments WBC (test code = See_Comment [Automated 3027-2) message] The sy stem which generated this result transmitted reference range : 4.20 - 10.70 10*3/?L. The reference range was not used to interpret this result as normal/abnormal . RBC (test code = See_Comment [Automated 219-8) message] The sy stem which generated this [...] RDW-SD (test code = 39.7 fL 38.5-51.6 03885-3) RDW-CV (test code = 12.7 % 12.1-15.4 788-0) PLT (test code = See_Comment [Automated 007-3) message] The sy stem which generated this result transmitted reference range : 150 - 328 10*3/ ?L. The reference r andrea was not used to interpret this result as normal/abnormal . MPV (test code = 9.7 fL 9.8-13.0 L 13931-0) NRBC/100 WBC (test See_Comment [Automat ed code = 6962472339) message] The system which generated this result transmitted reference range : 0.0 - 10.0 /100 WBCs. The refer ence range was not u sed to interpret th is result as normal/abnormal . NRBC x10^3 (test code <0.01 See_Comment [Auto mated = 6041935397) message] The s ystem which generated this result transmitted reference range : 10*3/?L. The reference range was not used to interpret this result as normal/abnormal . GRAN MAT (NEUT) % 45.9 % (test code = 770-8) IMM GRAN % (test code 0.20 % = 3554789446) LYMPH % (test code = 41.7 % 736-9) MONO % (test code = 11.6 % 5905-5) EOS % (test code = 0.3 % 713-8) BASO % (test code = 0.3 % 706-2) GRAN MAT x10^3(ANC) 3.95 10*3/uL 1.99-6.95 (test code = 6801727067) IMM GRAN x10^3 (test <0.03 0.00-0.06 code = 7512919861) LYMPH x10^3 (test code 3.60 10*3/uL 1.09-3.23 H = 731-0) MONO x10^3 (test code 1.00 10*3/uL 0.36-1.02 = 742-7) EOS x10^3 (test code = 0.03 10*3/uL 0.06-0.53 L 711-2) BASO x10^3 (test code 0.03 10*3/uL 0.01-0.09 = 704-7) Lab Interpretation Abnormal (test code = 07126-9) [facility] NOW RAPID TESTING)2021-05-02 00:31:00 Test Item Value Reference Range Interpretation Comments SARS-CoV-2 Rapid ID NOW Not Detected Not Detected (test code = 11510-0) KRYSTLE (test code = KRYSTLE) ID NOW COVID-19 Assay is an isothermal nucleic acid amplification test intended for the qualitative detection of nucleic acid from SARS-CoV-2 viral RNA in nasopharyngeal (PERSONALIZED LIVING ASSISTANT) specimens. It is used under Emergency Use [...] indicated. Lab Interpretation Normal (test code = 75578-9) [facility] STREP SCREEN FOR GROUP [id number] 00:25:45 Test Item Value Reference Range Interpretation Comments Streptococcus pyogenes (group A) Negative Negative antigen (test code = 64305-0) Lab Interpretation (test code = Normal 43199-7) [facility] (ID NOW RAPID TESTING)2021-04-02 01:41:42 Test Item Value Reference Range Interpretation Comments SARS-CoV-2 Rapid ID NOW Not Detected Not Detected (test code = 37429-8) KRYSTLE (test code = KRYSTLE) ID NOW COVID-19 Assay is an isothermal nucleic acid amplification test intended for the qualitative detection of nucleic acid from SARS-CoV-2 viral RNA in nasopharyngeal (PERSONALIZED LIVING ASSISTANT) specimens. It is used under Emergency Use [...] indicated. Lab Interpretation Normal (test code = 91798-7) [facility] STREP SCREEN FOR GROUP [id number] 01:39:31 Test Item Value Reference Range Interpretation Comments Streptococcus pyogenes (group A) Negative Negative antigen (test code = 93336-6) Lab Interpretation (test code = Normal 04551-4) [facility] W[facility]ST 3+ VW [id number] 02:41:03 Impression: No acute osseous abnormality. AFC: [id number] of Report Exam: XR WRIST 3+ [...] Physician: NIKHIL BLANTON.History: Wrist pain, felt pop 6/29 .Technique: XR WRIST 3+ VW LEFTComparison: None.Findings: No acute fracture or dislocation. Chronic fracture deformities of the fifthmetacarpal and the distal radius. There are 3 intact K wires overlappingthe distal radius.No dislocation. Mild diffuse soft tissue edema.IMPRESSIONImpression: No acute osseous abnormality.AFC: [id number] of Report UnCH[facility]Urinalysis2021-07-05 01:32:01 Test Item Value Reference Range Interpretation Comments APPEARANCE (test code = Clear Clear 7244495434) COLOR (test code = Yellow Yellow 8720639983) PH (test code = 4.8-8.0 2281144428) SP GRAVITY (test code = 1.003-1.030 9525194426) GLU U QUAL (test code = Normal Normal 2164514453) BLOOD (test code = Negative Negative 4417220475) KETONES (test code = Negative Negative 2481919859) PROTEIN (test code = Negative Negative 2887-8) UROBILIN (test code = 2.0 mg/dL Normal A 6220122869) BILIRUBIN (test code = Negative Negative 3119839879) NITRITE (test code = Negative Negative 4740066301) LEUK MO (test code = Negative Negative 2362276688) RBC/HPF (test code = See_Comment [Autom ated message] 5868466163) The system [employer] generated this result transmit delvin reference range : 0 - 3 HPF. The refe rence range was not u sed to interpret th is result as normal/abnormal . WBC/HPF (test code = See_Comment [Autom ated message] 3579913527) The system [employer] generated this result transmit delvin reference range : 0 - 5 HPF. The refe rence range was not u sed to interpret th is result as normal/abnormal . BACTERIA (test code = Few Negative A 1590786139) MUCOUS (test code = Slight Negative LPF A 4603751172) SQ EPITH (test code = <1 HPF 6669901392) Lab Interpretation (test Abnormal code = 89712-4) [facility] CHEST 1 [id number] 04:09:05Impression: Mild thickening of the sol of the central airways, possibly reflectinginfectious or inflammatory bronchitis. RL: 460 AFC: [id number] Ordering physician: DARNELL HSU Indication: Cough and congestion Comparison: None Find ings: Single AP view of the chest. The cardiopericardial silhouette iswithin normal limits. There ismild thickening of the sol of the centralairways. The visualized bony thorax is intact. [facility], Radiant Results Inft User - 11/14/2020 10:10 PM CSTOrdering physician: DARNELL GUERRERONAIlaryication: Cough and congestionComparison: NoneFindings: Single AP view of the chest. The cardiopericardial silhouette iswithin normal limits. There is mild thickening of the sol of the centralairways. The visualized bony thorax is intact.IMPRESSIONImpression:Mild thickening of the sol of the central airways, possibly reflectinginfectious or inflammatory bronchitis.RL: 460AFC: [id number] signed by Marisol Manzo MD, PhD at 11/14/2020 10:09 PM [facility] RockCOMPREHENSIVE METABOLIC [id number] 00:00:00 Test Item Value Reference Range Interpretation Comments GLUCOSE (test code = 2217) 101 MG/DL BUN (test code = 2208) 11 MG/DL CREATININE (test code = 2214) 0.88 MG/DL eGFR AMER. (test code 118 ML/MIN/1.73 = 04768) eGFR NON- AMER. (test 102 ML/MIN/1.73 code = 97661) CALC BUN/CREAT (test code = 13 RATIO 2235) SODIUM (test code = 2231) 143 MEQ/L POTASSIUM (test code = 2228) 4.5 MEQ/L CHLORIDE (test code = 2215) 106 MEQ/L CARBON DIOXIDE (test code = 23 MEQ/L 2206) CALCIUM (test code = 2209) 9.5 MG/DL PROTEIN, TOTAL (test code = 8.2 G/DL 2228) ALBUMIN (test code = 2201) 4.5 G/DL CALC GLOBULIN (test code = 3.7 G/DL 2240) CALC A/G RATIO (test code = 1.2 RATIO 2234) BILIRUBIN, TOTAL (test code = 0.6 MG/DL 2206) ALKALINE PHOSPHATASE (test 69 U/L code = 2204) AST (test code = 2218) 54 U/L ALT (test code = 2219) 88 U/L COMPREHENSIVE METABOLIC [id number] 00:00:00 Test Item Value Reference Range Interpretation Comments GLUCOSE (test code = 2217) 101 MG/DL BUN (test code = 2208) 11 MG/DL CREATININE (test code = 2214) 0.88 MG/DL eGFR AMER. (test code 118 ML/MIN/1.73 = 22698) eGFR NON- AMER. (test 102 ML/MIN/1.73 code = 22010) CALC BUN/CREAT (test code = 13 RATIO 2235) SODIUM (test code = 2231) 143 MEQ/L POTASSIUM (test code = 2228) 4.5 MEQ/L CHLORIDE (test code = 2215) 106 MEQ/L CARBON DIOXIDE (test code = 23 MEQ/L 2206) CALCIUM (test code = 2209) 9.5 MG/DL PROTEIN, TOTAL (test code = 8.2 G/DL 2228) ALBUMIN (test code = 2201) 4.5 G/DL CALC GLOBULIN (test code = 3.7 G/DL 0) CALC A/G RATIO (test code = 1.2 RATIO 4) BILIRUBIN, TOTAL (test code = 0.6 MG/DL 2206) ALKALINE PHOSPHATASE (test 69 U/L code = 2204) AST (test code = 2218) 54 U/L ALT (test code = 2219) 88 U/L N-TERMINAL [id number] 15:43:00 Test Item Value Reference Range Interpretation Comments NT-proBNP (test code <11 See_Comment [Autom ated = 9745749804) message] The system which generated this result transmitted reference range : <=125 pg/mL. Th e reference range was not used to interpret this result as normal/abnormal . KRYSTLE (test code = KRYSTLE) Biotin has been reported to cause a negative bias, interpret results relative to patient's use of biotin. Lab Interpretation Normal (test code = 37563-2) [facility] WITH [id number] 15:27:00 Test Item Value Reference Range Interpretation Comments WBC (test code = See_Comment [Automated 8247-2) message] The sy stem which generated this result transmitted reference range : 4.20 - 10.70 10*3/?L. The reference range was not used to interpret this result as normal/abnormal . RBC (test code = See_Comment [Automated 081-8) message] The sy stem which generated this [...] (test code = 37.3 fL 38.5-51.6 L 23585-8) RDW-CV (test code = 11.9 % 12.1-15.4 L 788-0) PLT (test code = See_Comment [Automated 777-3) message] The sy stem which generated this result transmitted reference range : 150 - 328 10*3/ ?L. The reference r andrea was not used to interpret this result as normal/abnormal . MPV (test code = 9.7 fL 9.8-13 L 01633-2) NRBC/100 WBC (test See_Comment [Automat ed code = 4521511357) message] The system which generated this result transmitted reference range : 0.0 - 10.0 /100 WBCs. The refer ence range was not u sed to interpret th is result as normal/abnormal . NRBC x10^3 (test code <0.01 See_Comment [Auto mated = 5016393071) message] The s ystem which generated this result transmitted reference range : 10*3/?L. The reference range was not used to interpret this result as normal/abnormal . GRAN MAT (NEUT) % 29.2 % (test code = 770-8) IMM GRAN % (test code 0.20 % = 9888031726) LYMPH % (test code = 59.0 % 736-9) MONO % (test code = 10.1 % 5905-5) EOS % (test code = 1.1 % 713-8) BASO % (test code = 0.4 % 706-2) GRAN MAT x10^3(ANC) 1.57 10*3/uL 1.99-6.95 L (test code = 0363527997) IMM GRAN x10^3 (test <0.03 0-0.06 code = 8487425087) LYMPH x10^3 (test code 3.17 10*3/uL 1.09-3.23 = 731-0) MONO x10^3 (test code 0.54 10*3/uL 0.36-1.02 = 742-7) EOS x10^3 (test code = 0.06 10*3/uL 0.06-0.53 711-2) BASO x10^3 (test code <0.03 0.01-0.09 = 704-7) Lab Interpretation Abnormal (test code = 36559-9) [facility] [id number] 15:13:32 No acute cardiopulmonary process. Preliminary Report Dictated by Resident: Efraín Alcaraz MD., have reviewed this study and agree withthe above report.PROCEDURE: XR CHEST 1 VW CLINICAL INDICATION: dizzy TECHNIQUE: Frontal chest radiograph was obtained. COMPARISON: None FINDINGS: The lungs are clear. No pleural effusion or pneumothorax is seen. The heart is normal in size. No acute bony abnormality is noted. [facility], Radiant Results Inft User - 09/30/2020 9:14 [...] report.[facility] [id number] 14:59:00 Test Item Value Reference Range Interpretation Comments TROPONIN I (test <0.012 See_Comment [Automated code = 8326535889) message] The system which generated this result [...] ? Lab Interpretation Normal (test code = 77354-0) [facility]. METABOLIC PANEL (80818)2020-09-30 14:59:00 Test Item Value Reference Range Interpretation Comments NA (test code = 139 mmol/L 135-145 1172249570) K (test code = 3.8 mmol/L 3.5-5 8724227219) CL (test code = 103 mmol/L 98-108 9056198769) CO2 TOTAL (test code = 26 mmol/L 23-31 4865157558) AGAP (test code = 2-16 6420686758) BUN (test code = 11 mg/dL 7-23 3802652338) GLUCOSE (test code = 163 mg/dL 70-110 H 9431297304) CREATININE (test code = 0.85 mg/dL 0.6-1.25 2521970012) TOTAL BILI (test code = 0.6 mg/dL 0.1-1.0 8106559609) CALCIUM (test code = 9.0 mg/dL 8.6-10.6 0717759715) T PROTEIN (test code = 8.0 g/dL 6.3-8.2 6612578662) ALBUMIN (test code = 4.4 g/dL 3.5-5 5038423790) ALK PHOS (test code = 75 U/L 34-122 0954709647) ALTv (test code = 61 U/L 5-50 H 1742-6) AST(SGOT) (test code = 54 U/L 13-40 H 0654377869) eGFR Calculation mL/min/1.73m2 (Non-) (test code = 9205710078) eGFR Calculation mL/min/1.73m2 () (test code = 8110381393) KRYSTLE (test code = KRYSTLE) Association of [...] tests). Lab Interpretation Abnormal (test code = 48120-6) [facility] Rock[facility]IP[facility], [id number] 14:59:00 Test Item Value Reference Range Interpretation Comments LIPASE (test code = 4607113883) 116 U/L 0-220 Lab Interpretation (test code = Normal 74402-6) [facility] RockTroponin [id number] 04:30:00 Test Item Value Reference Range Interpretation Comments TROPONIN I (test <0.012 See_Comment [Automated code = 7567269130) message] The system which generated this result [...] ? Lab Interpretation Normal (test code = 10177-6) [facility] RockComplete Metabolic [id number] 03:24:00 Test Item Value Reference Range Interpretation Comments NA (test code = 137 mmol/L 135-145 2569731813) K (test code = 4.7 mmol/L 3.5-5 2208985061) CL (test code = 101 mmol/L 98-108 2848518937) CO2 TOTAL (test code = 27 mmol/L 23-31 1545056684) AGAP (test code = 2-16 1801147296) BUN (test code = 16 mg/dL 7-23 3381416163) GLUCOSE (test code = 226 mg/dL 70-110 H 7389917754) CREATININE (test code = 1.13 mg/dL 0.6-1.25 8998316023) TOTAL BILI (test code = 0.7 mg/dL 0.1-1.9 8247056901) CALCIUM (test code = 9.3 mg/dL 8.6-10.6 6160153109) T PROTEIN (test code = 7.8 g/dL 6.3-8.2 6072189664) ALBUMIN (test code = 3.9 g/dL 3.5-5 2679953505) ALK PHOS (test code = 79 U/L 34-122 0296317412) ALTv (test code = 62 U/L 5-50 H 1742-6) AST(SGOT) (test code = 49 U/L 13-40 H 5927788856) eGFR Calculation mL/min/1.73m2 (Non-) (test code = 1757155331) eGFR Calculation mL/min/1.73m2 () (test code = 6962732685) KRYSTLE (test code = KRYSTLE) Association of [...] tests). Lab Interpretation Abnormal (test code = 93725-3) [facility] RockLipase, [id number] 03:23:00 Test Item Value Reference Range Interpretation Comments LIPASE (test code = 6812577564) 317 U/L 0-220 H Lab Interpretation (test code = Abnormal 34486-9) [facility] RockCBC with [id number] 03:21:00 Test Item Value Reference Range Interpretation Comments WBC (test code = See_Comment [Automated 0990-2) message] The sy stem which generated this [...] (test code = 37.9 fL 38.5-51.6 L 26174-5) RDW-CV (test code = 12.4 % 12.1-15.4 788-0) PLT (test code = See_Comment [Automated 777-3) message] The sy stem which generated this result transmitted reference range : 150 - 328 10*3/ ?L. The reference r andrea was not used to interpret this result as normal/abnormal . MPV (test code = 9.7 fL 9.8-13 L 76691-8) NRBC/100 WBC (test See_Comment [Automat ed code = 4136045988) message] The system which generated this result transmitted reference range : 0.0 - 10.0 /100 WBCs. The refer ence range was not u sed to interpret th is result as normal/abnormal . NRBC x10^3 (test code <0.01 See_Comment [Auto mated = 7022113484) message] The s ystem which generated this result transmitted reference range : 10*3/?L. The reference range was not used to interpret this result as normal/abnormal . GRAN MAT (NEUT) % 36.7 % (test code = 770-8) IMM GRAN % (test code 0.10 % = 0510733404) LYMPH % (test code = 50.9 % 736-9) MONO % (test code = 11.1 % 5905-5) EOS % (test code = 0.8 % 713-8) BASO % (test code = 0.4 % 706-2) GRAN MAT x10^3(ANC) 2.59 10*3/uL 1.99-6.95 (test code = 9423428209) IMM GRAN x10^3 (test <0.03 0-0.06 code = 8077076408) LYMPH x10^3 (test code 3.61 10*3/uL 1.09-3.23 H = 731-0) MONO x10^3 (test code 0.79 10*3/uL 0.36-1.02 = 742-7) EOS x10^3 (test code = 0.06 10*3/uL 0.06-0.53 711-2) BASO x10^3 (test code 0.03 10*3/uL 0.01-0.09 = 704-7) Lab Interpretation Abnormal (test code = 49940-6) [facility]"
[2023-07-20] MEDS ORDERED: ONDANSETRON 4 MG/2 ML VIAL ONE (05:28)
[2023-07-20] MEDS ORDERED: FAMOTIDINE 20 MG/2 ML VIAL IV ONE (05:28)
[2023-07-20] MEDS ORDERED: NA CHLORIDE 0.9% 1,000 ML ONE (05:28)
[2023-07-20 05:31] LABS: Absolute Lymphocytes (CBC) 2.4 K/uL (0.7-4.9); Hematocrit 44.4 % (39.6-49.0); Lymphocytes % 40.6 % (15.3-44.8); MCV 87.2 fL (80-100); MPV 7.8 fL (7.6-11.3); Platelets 241 thou/uL (152-406); RBC Red Blood Cell Count 5.09 M/uL (4.33-5.43)
[2023-07-20] MEDS ORDERED: PANTOPRAZOLE 40 MG INJ ONE ×2 (05:39→05:42)
[2023-07-20 05:58] LABS: Albumin 3.9 g/dL (3.4-5.0); Bilirubin Total 0.6 mg/dL (0.2-1.0); Potassium 3.8 mEq/L (3.5-5.1); Protein, Total 7.9 g/dL (6.4-8.2)
[2023-07-20 06:12] LABS: Protime INR 1.06
[2023-07-20] MEDS ORDERED: MORPHINE 4 MG/ML SYR ONE (06:21)
--- NOTE | 2023-07-20 06:44 | ER ---
Nurse's Notes [facility] Name: Noah Putnam Age: 52 yrs Sex: Male : 1970 Arrival Date: 07/20/2023 Time: 04:36 Bed 17 Private MD: Diagnosis: Abdominal pain, Generalized;Nausea with vomiting, unspecified;Dark stools Presentation: 07/20 04:49 Chief complaint: Patient states: BLACK TARRY STOOL SINCE THURSDAY. TALKED TO HIS jj7 SPECIALIST AND THEY TOLD HIM TO COME TO THE ER. ABD PAIN. HX OF PANCREATITIS. Coronavirus screen: At this time, the client does not indicate any symptoms associated with coronavirus-19. Ebola Screen: No symptoms or risks identified at this time. Initial Sepsis Screen: Does the patient meet any 2 criteria? No. Patient's initial sepsis screen is negative. Does the patient have a suspected source of infection? No. Patient's initial sepsis screen is negative. Risk Assessment: Do you want to hurt yourself or someone else? Patient reports no desire to harm self or others. 04:49 Method Of Arrival: Ambulatory [facility] 04:49 Acuity: BREEZY 3 jj7 Triage Assessment: 04:55 General: Appears in no apparent distress. comfortable, Behavior is calm, cooperative, jj7 appropriate for age. Pain: Complains of pain in abdomen Pain radiates to back Pain currently is 8 out of 10 on a pain scale. GI: Reports lower abdominal pain, upper abdominal pain, intolerance of food, nausea, vomiting. Historical: - Allergies: 04:55 Bee Venom; jj7 - PMHx: 04:55 chronic kidney disease; Chronic Pancreatitis; Herniated disc; Hypertension; jj7 - PSHx: 04:55 left arm surgery; jj7 - Immunization history:: Adult Immunizations up to date. - Social history:: Smoking status: Patient denies any tobacco usage or history of. Patient/guardian denies using alcohol, street drugs. Screenin:55 [facility] ED Fall Risk Assessment (Adult) History of falling in the last 3 months, lg3 including since admission No falls in past 3 months (0 pts). Abuse screen: Denies threats or abuse. Denies injuries from another. Nutritional screening: No deficits noted. Tuberculosis screening: No symptoms or risk factors identified. Assessment: 04:55 General: Appears in no apparent distress. comfortable, Behavior is calm, cooperative. lg3 Pain: Complains of pain in back and abdomen. Neuro: No deficits noted. Maier Agitation-Sedation Scale (RASS): 0 - Alert and Calm Level of Consciousness is awake, alert, obeys commands, Oriented to person, place, time, situation. Cardiovascular: No deficits noted. Denies diaphoresis, shortness of breath, Capillary refill < 3 seconds Clubbing of nail beds is absent JVD is absent Patient's skin is warm and dry. Respiratory: No deficits noted. Airway is patent Respiratory effort is even, unlabored, Respiratory pattern is regular, symmetrical. GI: No deficits noted. Bowel sounds present X 4 quads. Abd is soft and non tender X 4 quads. Reports bloating, rectal bleeding, bloody stool, nausea. : No deficits noted. No signs and/or symptoms were reported regarding the genitourinary system. EENT: No deficits noted. No signs and/or symptoms were reported regarding the EENT system. Derm: No deficits noted. No signs and/or symptoms reported regarding the dermatologic system. Skin is intact, is healthy with good turgor, Skin is dry, Skin is normal, Skin temperature is warm. Musculoskeletal: No deficits noted. No signs and/or symptoms reported regarding the musculoskeletal system. Circulation, motion, and sensation intact. Range of motion: intact in all extremities. 06:38 Reassessment: Patient appears in no apparent distress at this time. No changes from lg3 previously documented assessment. Patient and/or family updated on plan of care and expected duration. Pain level reassessed. Patient is alert, oriented x 3, equal unlabored respirations, skin warm/dry/pink. Patient states feeling better. Patient states symptoms have improved. Vital Signs: 04:49 BP 148 / 95; Pulse 74; Resp 18; Temp 98.2; Pulse Ox 98% ; Weight 117.03 kg; Height 6 jj7 ft. 4 in. ; Pain 8/10; 05:22 BP 154 / 102; Pulse 73; Resp 12; Pulse Ox 97% on R/A; Height 6 ft. 5 in. ; kmf 06:54 BP 148 / 91; Pulse 71; Resp 14 S; Pulse Ox 99% on R/A; lg3 04:49 Body Mass Index 31.40 (117.03 kg, 195.58 cm) jj7 04:49 Pain Scale: Adult jj7 ED Course: 04:40 Patient arrived in ED. jj6 04:55 Triage completed. jj7 04:55 Arm band placed on right wrist. jj7 04:55 Patient has correct armband on for positive identification. Placed in gown. Bed in low lg3 position. Call light in reach. Side rails up X 1. Client placed on continuous cardiac and pulse oximetry monitoring. NIBP monitoring applied. alarm security or surveillance monitor on. Door closed. Noise minimized. Warm blanket given. 04:55 Patient maintains SpO2 saturation greater than 95% on room air. lg3 05:12 Faith Nugent, LINUS is Primary Nurse. lg3 05:21 Andrew Hernandez MD is Attending Physician. sp4 05:21 Inserted saline lock: 20 gauge in right forearm, using aseptic technique. Blood rv1 collected. 05:21 CBC with Diff Sent. rv1 05:21 CMP Sent. rv1 05:21 Lipase Sent. rv1 05:38 PT-INR Sent. lg3 05:38 Type And Screen Sent. lg3 05:39 CBC with Diff Sent. rv1 05:39 CMP Sent. rv1 05:39 Lipase Sent. rv1 05:50 CT Abd/Pelvis - Without Contrast In Process Unspecified. EDMS 06:54 No provider procedures requiring assistance completed. IV discontinued, intact, lg3 bleeding controlled, No redness/swelling at site. Pressure dressing applied. Administered Medications: 05:24 Drug: Famotidine IVP 20 mg IVP once; dilute with 10 mL 0.9% NaCl; give over 2 minutes lg3 Route: IVP; Site: right forearm; 06:53 Follow up: Response: No adverse reaction lg3 05:25 Drug: NS 0.9% IV 1000 ml IV at 1 bolus Per protocol; 1000 mL bolus Route: IV; Rate: 1 lg3 bolus; Site: right forearm; 05:25 Drug: Ondansetron IVP 4 mg IVP once; over 2 minutes Route: IVP; Site: right forearm; lg3 06:53 Follow up: Response: No adverse reaction lg3 05:37 Drug: Pantoprazole IVP 40 mg IVP once Route: IVP; Site: right forearm; lg3 06:53 Follow up: Response: No adverse reaction lg3 05:38 Drug: Pantoprazole IVP 40 mg IVP once Route: IVP; Site: right forearm; lg3 06:53 Follow up: Response: No adverse reaction lg3 06:14 Drug: morphine IVP or IV 8 mg IVP once over 4 mins Route: IVP; Infused Over: 4 mins; lg3 Site: right forearm; 06:39 Follow up: Response: No adverse reaction; Marked relief of symptoms lg3 Medication: 06:54 VIS not applicable for this client. lg3 Outcome: 06:44 Discharge ordered by . braden 06:54 Discharged to home ambulatory, lg3 06:54 Condition: stable 06:54 Discharge instructions given to patient, Instructed on discharge instructions, follow up and referral plans. medication usage, Demonstrated understanding of instructions, follow-up care, medications, Prescriptions given X 2, 06:55 Patient left the ED. lg3 Signatures: Dispatcher [employer] EDMS Faith Nugent RN RN lg3 [place] jj6 Godwin Ibarra RN RN jj7 Yaneth Wong Sergey, MD MD sp4 Luz Maria Jesus [facility]
--- NOTE | 2023-07-20 06:44 | EDPHYS ---
Physician Documentation [facility] Name: Noah Putnam Age: 52 yrs Sex: Male : 1970 Arrival Date: 07/20/2023 Time: 04:36 Bed 17 Private MD: ED Physician Andrew Hernandez HPI: 07/20 05:21 This 52 yrs old Black Male presents to ER via Ambulatory with complaints of Abdominal sp4 Pain, Black/Tarry Stools, Nausea/Vomiting. 05:22 PMH - Historical: Allergies: Bee Venom Home Meds: amlodipine 10 mg tab 1 tab once sp4 daily; lisinopril 10 mg Oral tab 1 tab once daily; PMHx: chronic kidney disease; Chronic Pancreatitis; Herniated disc; Hypertension PSHx: left arm surgery;. 06:40 Very pleasant 62-year-old male presents with complaint of dark tarry stools nausea sp4 vomiting abdominal burning starting this morning . . Historical: - Allergies: 04:55 Bee Venom; jj7 - PMHx: 04:55 chronic kidney disease; Chronic Pancreatitis; Herniated disc; Hypertension; jj7 - PSHx: 04:55 left arm surgery; jj7 - Immunization history:: Adult Immunizations up to date. - Social history:: Smoking status: Patient denies any tobacco usage or history of. Patient/guardian denies using alcohol, street drugs. ROS: 06:40 Constitutional: Negative for fever, chills, and weight loss, Abdomen/GI: Positive black sp4 stools, positive abdominal burning positive nausea vomiting 06:40 All other systems are negative, Exam: 06:40 Constitutional: This is a well developed, well nourished patient who is awake, alert, sp4 and in no acute distress. Head/Face: Normocephalic, atraumatic. Eyes: Pupils equal round and reactive to light, extra-ocular motions intact. Lids and lashes normal. Conjunctiva and sclera are not injected. Cornea within normal limits. Periorbital areas with no swelling, redness, or edema. ENT: Nares patent. No nasal discharge, no septal abnormalities noted. Tympanic membranes are normal and external auditory canals are clear. Oropharynx with no redness, swelling, or masses, exudates, or evidence of obstruction, uvula midline. Mucous membranes moist. Neck: Trachea midline, no thyromegaly or masses palpated, and no cervical lymphadenopathy. Supple, full range of motion without nuchal rigidity, or vertebral point tenderness. Chest/axilla: Normal chest wall appearance and motion. Nontender with no deformity. No lesions are appreciated. Cardiovascular: Regular rate and rhythm with a normal S1 and S2. No gallops, murmurs, or rubs. Normal PMI, no JVD. No pulse deficits. Respiratory: Lungs have equal breath sounds bilaterally, clear to auscultation and percussion. No rales, rhonchi or wheezes noted. No increased work of breathing, no retractions or nasal flaring. Abdomen/GI: Soft, non-tender, with normal bowel sounds. No distension or tympany. No guarding or rebound. No evidence of tenderness throughout. Back: No spinal tenderness. No costovertebral tenderness. Skin: Warm, dry with normal turgor. Normal color with no rashes, no lesions, and no evidence of cellulitis. MS/ Extremity: Pulses equal, no cyanosis. Neurovascular intact. Full, normal range of motion. Neuro: Awake and alert, GCS 15, oriented to person, place, time, and situation. Cranial nerves II-XII grossly intact. Motor strength 5/5 in all extremities. Sensory grossly intact. Psych: Awake, alert, with orientation to person, place and time. Behavior, mood, and affect are within normal limits 06:40 Abdomen/GI: Digital rectal exam reveals no melena, no bright red blood no maroon stool sp4 no fissures no fistulas no signs of gastrointestinal bleeding, normal stool on exam, Vital Signs: 04:49 BP 148 / 95; Pulse 74; Resp 18; Temp 98.2; Pulse Ox 98% ; Weight 117.03 kg; Height 6 jj7 ft. 4 in. ; Pain 8/10; 05:22 BP 154 / 102; Pulse 73; Resp 12; Pulse Ox 97% on R/A; Height 6 ft. 5 in. ; kmf 06:54 BP 148 / 91; Pulse 71; Resp 14 S; Pulse Ox 99% on R/A; lg3 04:49 Body Mass Index 31.40 (117.03 kg, 195.58 cm) [facility] 04:49 Pain Scale: Adult [facility] MDM: 05:31 Patient medically screened. sp4 06:33 ED course: CT report - FINDINGS: Lung bases: Lung bases are clear. The heart is normal sp4 in size. Liver:The liver is normal in size and configuration. No focal hepatic abnormalities are appreciated on this unenhanced scan. Liver attenuation is within normal limits. Spleen:The spleen is normal in size, configuration and attenuation. No focal splenic abnormalities are appreciated on this unenhanced scan. Gallbladder and bile duct: The gallbladder is well distended and unremarkable. There is no biliary ductal dilatation. Pancreas: The pancreas is grossly normal in size and configuration. Adrenal Glands:The adrenal glands are normal in size and configuration. Kidneys:The kidneys are normal in size and configuration. There is no evidence of hydronephrosis. There is no evidence of nephrolithiasis. No focal renal abnormalities are identified. Stomach:The stomach is grossly normal. There is no definite hiatal hernia. Bowel:The bowel gas pattern is non specific and non obstructive. Appendix: The appendix is normal. Free air:There is no evidence of free air. Free fluid: There is no evidence of free fluid. Vasculature: The aorta is normal in caliber and contour. The inferior vena cava is grossly unremarkable. Lymphadenopathy: No pathologic lymphadenopathy is identified. Bladder: The bladder is mildly distended and smooth in contour. Reproductive: The prostate gland is grossly within normal limits. Bones: No acute osseous abnormalities are identified. There has been mild progressive degenerative changes involving the L5-S1 disc space. Soft tissues: No acute soft tissue abnormalities are identified. There is a small fat-containing ventral umbilical hernia. There is a small fat-containing left inguinal hernia. IMPRESSION: 1. No evidence of acute intra-abdominal or intrapelvic pathology. 2. Small fat-containing ventral umbilical hernia and small fat-containing left inguinal hernia. 3. Mild progressive degenerative changes involving the L5-S1 disc space. Electronically signed by: Manju Crowder DO 07/20/2023 6:08 AM. 06:40 Differential diagnosis: Nonspecific abd pain, gastritis, pancreatitis, appendicitis, sp4 diverticulitis, viral gastroenteritis, gastroenteritis. Data reviewed: vital signs, nurses notes, old medical records, lab test result(s), CBC, electrolytes, hepatic panel, radiologic studies, CT scan. Consideration of Admission/Observation Escalation of care including admission/observation considered. 06:40 ED course: Based on patient's work-up there is no sign of acute gastrointestinal sp4 bleeding. 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 Will prescribe Phenergan and Bentyl for nausea and abdominal discomfort. . 07/20 05:09 Order name: CBC with Diff; Complete Time: 06:05 bp 07/20 05:09 Order name: CMP; Complete Time: 06:05 bp 07/20 05:09 Order name: Lipase; Complete Time: 06:05 bp 07/20 05:23 Order name: Type And Screen sp4 07/20 05:23 Order name: PT-INR; Complete Time: 06:20 sp4 07/20 05:09 Order name: CT Abd/Pelvis - Without Contrast bp 07/20 05:09 Order name: IV Saline Lock; Complete Time: 05:21 bp 07/20 05:09 Order name: Labs collected and sent; Complete Time: 05:21 bp Administered Medications: 05:24 Drug: Famotidine IVP 20 mg IVP once; dilute with 10 mL 0.9% NaCl; give over 2 minutes lg3 Route: IVP; Site: right forearm; 06:53 Follow up: Response: No adverse reaction lg3 05:25 Drug: NS 0.9% IV 1000 ml IV at 1 bolus Per protocol; 1000 mL bolus Route: IV; Rate: 1 lg3 bolus; Site: right forearm; 05:25 Drug: Ondansetron IVP 4 mg IVP once; over 2 minutes Route: IVP; Site: right forearm; lg3 06:53 Follow up: Response: No adverse reaction lg3 05:37 Drug: Pantoprazole IVP 40 mg IVP once Route: IVP; Site: right forearm; lg3 06:53 Follow up: Response: No adverse reaction lg3 05:38 Drug: Pantoprazole IVP 40 mg IVP once Route: IVP; Site: right forearm; lg3 06:53 Follow up: Response: No adverse reaction lg3 06:14 Drug: morphine IVP or IV 8 mg IVP once over 4 mins Route: IVP; Infused Over: 4 mins; lg3 Site: right forearm; 06:39 Follow up: Response: No adverse reaction; Marked relief of symptoms lg3 Disposition Summary: 07/20/23 06:44 Discharge Ordered Notes: We advise visit with your GI specialist in the next 7 days Location: Home sp4 Problem: new sp4 Symptoms: have improved sp4 Condition: Stable sp4 Diagnosis - Abdominal pain, Generalized sp4 - Nausea with vomiting, unspecified sp4 - Dark stools sp4 Followup: sp4 - With: Private Physician - When: 7 - 10 days - Reason: Recheck today's complaints Discharge Instructions: - Discharge Summary Sheet sp4 - Abdominal Pain, Adult sp4 Forms: - Patient Portal Instructions sp4 Prescriptions: - dicyclomine 20 mg Oral tablet - take 1 tablet ORAL route every 6 hours PRN abdominal pain; 30 tablet; Refills: sp4 0, Product Selection Permitted - promethazine 25 mg Oral tablet - take 1 tablet ORAL route every 6 hours As needed PRN nausea; 30 tablet; sp4 Refills: 0, Product Selection Permitted Signatures: Dispatcher [employer] Donn Ratliff, RN RN Faith Jacome RN RN lg3 Godwin Ibarra RN RN jj7 Andrew Hernandez MD MD sp4
[2023-07-20 07:07] VITALS: TEMP 98.2
[2023-07-20 07:23] VITALS: BP 148/91; O2SAT 99
--- NOTE | 2023-07-20 10:24 | RAD REPORT ---
EXAM DESCRIPTION: CT abdomen and pelvis without intravenous contrast CLINICAL HISTORY: 52 years Male ABD PAIN TECHNIQUE: Axial CT imaging of the abdomen and pelvis was performed without oral or intravenous cont rast. Sagittal and coronal reconstructed images were then performed. The CT study is performed acco rding to ALARA (as low as reasonably achievable) or ALARA/IMAGE GENTLY, with automatic adjustment of mA and/or kV according to patient size. Performed on: 07/20/2023 at 5:46 AM COMPARISON: CT abdomen and pelvis without contrast performed on 06/23/2022. FINDINGS: Lung bases: Lung bases are clear. The heart is normal in size. Liver: The liver is normal in size and configuration. No focal hepatic abnormalities are appreciated on this unenhanced scan. Liver attenuation is within normal limits. Spleen: The spleen is normal in size, configuration and attenuation. No focal splenic abnormalities a re appreciated on this unenhanced scan. Gallbladder and bile duct: The gallbladder is well distended and unremarkable. There is no biliary ductal dilatation. Pancreas: The pancreas is grossly normal in size and configuration. Adrenal Glands: The adrenal glands are normal in size and configuration. Kidneys: The kidneys are normal in size and configuration. There is no evidence of hydronephrosis. Th ere is no evidence of nephrolithiasis. No focal renal abnormalities are identified. Stomach: The stomach is grossly normal. There is no definite hiatal hernia. Bowel: The bowel gas pattern is non specific and non obstructive. Appendix: The appendix is normal. Free air: There is no evidence of free air. Free fluid: There is no evidence of free fluid. Vasculature: The aorta is normal in caliber and contour. The inferior vena cava is grossly unremarkab le. Lymphadenopathy: No pathologic lymphadenopathy is identified. Bladder: The bladder is mildly distended and smooth in contour. Reproductive: The prostate gland is grossly within normal limits. Bones: No acute osseous abnormalities are identified. There has been mild progressive degenerative ch anges involving the L5-S1 disc space. Soft tissues: No acute soft tissue abnormalities are identified. There is a small fat-containing vent ral umbilical hernia. There is a small fat-containing left inguinal hernia. IMPRESSION: 1. No evidence of acute intra-abdominal or intrapelvic pathology. 2. Small fat-containing ventral umbilical hernia and small fat-containing left inguinal hernia. 3. Mild progressive degenerative changes involving the L5-S1 disc space. Electronically signed by: Manju Crowder DO 07/20/2023 6:08 AM COPIER TECHNICIAN Due to temporary technical issues with the PACS/Fluency reporting system, reports are being signed by the in house radiologist without review as a courtesy to ensure prompt reporting. The interpreting r adiologist is fully responsible for the content of the report.
== END 2023-07-20 06:55 | disposition home or self-care (01) ==
LOC: ER 04:36
DX: R10.84 Generalized abdominal pain (principal); R11.2 Nausea with vomiting, unspecified; K92.1 Melena
CPT/HCPCS: 36415; 74176; 80053; 83690; 85025; 85610; 86850; 86900; 86901; 96374; 96375; 99285; C9113; J2405; J7030

== ENCOUNTER 2023-07-25 21:38 | Emergency (ER) | payer OTHER, SELFPAY ==
--- OUTSIDE RECORDS SUMMARY | 2023-07-25 21:49 | XMS REPORT | Continuity of Care Document ---
:1970 Author Organization [facility] t Address [address] [place] [place] [address] Care Team Providers Name Role Phone Deidra Emily WALDROP Primary Care Physician [phone] Mayuri James Attending Clinician Unavailable ADAN CHESTER Attending Clinician Unavailable Trevor TAYLOR Attending Clinician Unavailable Trevor Worley Attending Clinician JOHNATHAN AVILA Attending Clinician Unavailable Johnathan Avila MD Attending Clinician Kristian Paul Attending Clinician Unavailable Merlyn Glez Attending Clinician NANCY BRENNAN Attending Clinician Unavailable STEPHIE DUNCAN Attending Clinician Unavailable Doctor Unassigned, Dequincy Attending Clinician Unavailable KIARA RICHARDSON Attending Clinician Unavailable MIRIAM LUDWIG Attending Clinician Unavailable MIRIAM LUDWIG Attending Clinician Unavailable Haresh Santamaria MD Attending Clinician [phone] Kristian Gleason Attending Clinician Unavailable Dieudonne Vallejo Attending Clinician Unavailable LAB56 Attending Clinician Unavailable JESSICA LANE Attending Clinician Unavailable AYDIN MATOS Attending Clinician Unavailable Aydin Matos MD Attending Clinician NATALI ALEXANDER Attending Clinician Unavailable Abraham Orantes MD Attending Clinician Natali Alexander DO Attending Clinician ADELAIDE GOODWIN Attending Clinician Unavailable Adelaide Goodwin MD Attending Clinician HEMALATHA MORA Attending Clinician Unavailable Morgan MEAT INSPECTOR, Hemalatha Attending Clinician JESSICA GONZALES Attending Clinician Unavailable Jessica Pradhan Attending Clinician SOHAM CLARKE Attending Clinician Unavailable Soham Clarke MD Attending Clinician AzamLion Arrington Attending Clinician MARK HERNANDEZ Attending Clinician Unavailable Mark Hernandez MD Attending Clinician ABRAHAM ORANTES Attending Clinician Unavailable Ellen Carroll RN Attending Clinician EMELIA GALLEGO Attending Clinician Unavailable Madison Akers F Attending Clinician Emelia Gallego DO Attending Clinician Felipe Valdivia Attending Clinician FELIPE ORTEGA Attending Clinician Unavailable Gabriella Zarate NP Attending Clinician Nurse, Adc Pob Immunization Attending Clinician Unavailable David Clarke DO Attending Clinician Nikhil Trevizo Attending Clinician NIKHIL BLANTON Attending Clinician Unavailable Pcp, Patient Does Not Have A Attending Clinician [phone] Mirna Mar RN Attending Clinician Unavailable Darnell Bustillo Attending Clinician DARNELL HSU Attending Clinician Unavailable Jessy Siddiqui DO Attending Clinician UNDEFINED Admitting Clinician Unavailable STEPHIE DUNCAN Admitting Clinician Unavailable HARESH SANTAMARIA Admitting Clinician Unavailable Dieudonne Vallejo Admitting Clinician Unavailable JESSICA LANE Admitting Clinician Unavailable NATALI ALEXANDER Admitting [...] Number Effective Date Expiration Date S remberto [facility] 9 [id number] 2022 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 [id number] 2023 00:00:00 CIGNA GENERIC [id number] 2021 00:00:00 [employer] 6 [id number] Common Spiri t [facility] Problems Condition Condition Condition Status Onset Resolution Last Treating Co mments Source Name Details Category Date Date Treatment Clinician Date Epigastric Epigastric Disease Active 2022- U nivers pain pain 1-28 ity of 00:00: [address] SBO (small SBO (small Disease Active U nivers bowel bowel 2-16 ity of obstructio obstructio 00:00: [place]) n) [address] [place] [address] Obesity Obesity Disease Active Univers (BMI (BMI 2-16 ity of 30-39.9) 30-39.9) 00:00: [address] No known No known Disease Unive rs active active ity of problems problems [facility] [id number] Bladder Problem Commo n mass Spirit - [facility] [id number] Microscopi Problem Co mmon c Spirit hematuria - [facility] [id number] Suprapubic Problem Co mmon pain Spirit - [facility] [id number] Lower Problem Common urinary [facility] tract - [facility] symptoms [facility] Allergies, Adverse Reactions, Alerts Allergy Allergy Status Severity Reaction(s) Onset Inactive Treating Comm ents Source Name Type Date Date Clinician bee DA Active SV THROAT SWELL 2022-09 [facility] venom 09-22 [place] protein 00:00: [place] ([facility] Medical bee) [place] BEE DRUG Active Swelling Univers VENOM INGREDI 10-30 ity of PROTEIN 00:00: [place] ([facility] Medical BEE) [place] Bee Propensi Active Swelling Luz Maria Venom ty to 16 Seybold adverse 00:00: - reaction 00 Externa s l No Known DA Active U [facility] Allergie 04-19 West s 00:00: [address] NO KNOWN Drug Active Univers ALLERGIE Class ity of S [facility] Social History Social Habit Start Date Stop Date Quantity Comments Source Gender identity Luz Maria faith - External Sexual orientation Luz Maria Ng - External History of tobacco Cigarette Smoker Luz Maria Ng - use External Alcohol intake 2023-07-08 2023-07-08 Lifetime Luz Maria gooden - 00:00:00 00:00:00 non-drinker External (finding) History of Social 2023-06-01 2023-06-01 Luz Maria Ng - function 00:00:00 00:00:00 External Exposure to 2022-11-28 2022-12-08 Not sure University of SARS-CoV-2 (event) 00:00:00 23:50:00 [facility] Tobacco use and 2022-10-11 2022-10-11 Smokeless Universit y of exposure 00:00:00 00:00:00 tobacco non-user [facility] Sex Assigned At [birth year] Luz Maria faith - 00:00:00 00:00:00 External Smoking Status Start Date Stop Date Source Occasional tobacco 2023-05-20 00:00:00 Luz Maria ybold - smoker External Never smoked tobacco [facility] Former Smoker 2022-07-11 00:00:00 2022-07-11 Common Spiri t [facility] 00[facility]00 [facility] Ce nter Unknown if ever smoked [facility] Medications Ordered Filled Start Stop Current Ordering Indication Dosage Frequency Signature Comments Components Source Medication Medication Date Date Medication? Clinician (SIG) Name Name diphenhydrA 2022-09 No 25mg 25 mg, Uni vers MINE 09-24 Slow IV ity of (BENADRYL) 19:30: 18:34 Push, [place] injection 00 :00 ONCE, 1 Medical 25 mg dose, On Branch 07/25/23 at 1330, STAT metoclopram 2022-09 No 10mg 10 mg, Uni vers jerilyn HCl 09-24 Slow IV ity of (REGLAN) 19:30: 18:34 Push, [place] injection 00 :00 ONCE, 1 Medical 10 mg dose, On Branch 07/25/23 at 1330, VASILIY morpHINE (4 2022-09 No 4mg 4 mg, Slow Univers mg/mL) 09-24 IV Push, ity of injection 4 17:30: 16:43 ONCE, 1 [place] mg 00 :00 dose, On Medical Sat Branch 07/25/23 at 1130, STAT ondansetron 2022-09 No 4mg 4 mg, Slow Univers (ZOFRAN 09-24 IV Push, ity of (PF)) 17:15: 16:43 ONCE, 1 [place] injection 4 00 :00 dose, On Medi amy mg Sat Branch 07/25/23 at 1115, VASILIY NaCl 0.9% 2022-09- No 1000mL at 999 Uni vers (NS) bolus 09-24 mL/hr, ity of infusion 17:15: 18:54 1,000 mL, [place] 1,000 mL 00 :00 IV Medical Infusion, Branch ONCE, 1 dose, On 07/25/23 at 1115, STAT metoclopram 2022-09 Yes [id number] 10mg Take 1 Univers jerilyn HCl 10 09-24 tablet by ity of mg tablet 00:00: mouth [place] 00 every 6 Medical (six) Branch hours. sodium 2022-09 Yes 5mL 5 mL, Univers chloride 1-10 Intravenou ity o f (NS) 19:45: s, PRN, [place] injection 5 30 Starting Medi amy mL on Thu Branch 07/24/23 at 1345, Until Discontinu ed, Routine, IV line flushing dicyclomine 2022-09 Yes [id number] 20mg Take 1 Univers 20 mg 1-10 tablet by ity of tablet 00:00: mouth 4 [place] 00 (four) Medical times Branch daily as needed for Abdominal pain. dicyclomine 2022-09 Yes [id number] 20mg Take 1 Univers 20 mg 1-10 tablet by ity of tablet 00:00: mouth 4 [place] 00 (four) Medical times Branch daily as needed for Abdominal pain. ketorolac 2022-09- No 15mg 15 mg, Unive rs (TORADOL) 0- Slow IV ity of injection 03:15: 02:32 Push, [place] 15 mg 00 :00 ONCE, 1 Medical dose, On Branch 07/11/23 at 2215, Routine methocarbam 2022-09- No 1000mg 1,000 mg, Univers oL 0-12 07- Oral, ity of (ROBAXIN) 02:30: 02:32 ONCE, 1 [place] tablet 00 :00 dose, On Medical 1,000 mg Sat Branch 07/11/23 at 2130, VASILIY famotidine 2022-09- No 20mg 20 mg, Univ ers (PEPCID 0- Slow IV ity of (PF)) 02:30: 02:32 Push, [place] injection 00 :00 ONCE, 1 Medical 20 mg dose, On Branch 07/11/23 at 2130, VASILIY aspirin 2022-09- No 324mg 324 mg, Unive rs chewable 0- Oral, ity of tablet 324 02:15: 02:31 ONCE, 1 [place] mg 00 :00 dose, On Medical Sat Branch 07/11/23 at 2115, STAT HYDROcodone 2022-09- Yes [id number] 1{tbl} Take 1 U nivers -acetaminop 07-15 tablet by it y of hen 5-325 00:00: 04:59 mouth [place] mg tablet 00 :00 every 4 Medical (four) Branch hours as needed for Pain (scale 7-10) for up to 3 days. Indication s: acute pain omeprazole 2022-09 Yes [id number] 40mg Take 1 U nivers 40 mg 0-27 capsule by ity of capsule 00:00: mouth in [place] 00 the Medical morning Branch and 1 capsule in the evening. peg-electro 2022-09 Yes [id number] Take as Univers lyte soln 0-27 directed ity of 236-22.74-6 00:00: before [place] .74 -5.86 00 colonoscop Medi amy gram y Branch solution omeprazole 2022-09 Yes [id number] 40mg Take 1 U nivers 40 mg 0-27 capsule by ity of capsule 00:00: mouth in [place] 00 the Medical morning Branch and 1 capsule in the evening. peg-electro 2022-09 Yes [id number] Take as Univers lyte soln 0-27 directed ity of 236-22.74-6 00:00: before [place] .74 -5.86 00 colonoscop Medi amy gram y Branch solution omeprazole 2022-09 Yes [id number] 40mg Take 1 U nivers 40 mg 0-27 capsule by ity of capsule 00:00: mouth in [place] 00 the Medical morning Branch and 1 capsule in the evening. peg-electro 2022-09 Yes [id number] Take as Univers lyte soln 0-27 directed ity of 236-22.74-6 00:00: [place] .74 -5.86 00 colonoscop [facility] amy gram y Branch solution omeprazole 2022-09 Yes [id number] 40mg Take 1 U nivers 40 mg 0-27 capsule by ity of capsule 00:00: mouth in [place] 00 the Medical morning Branch and 1 capsule in the evening. peg-electro 2022-09 Yes [id number] Take as Univers lyte soln 0-27 directed ity of 236-22.74-6 00:00: [place] .74 -5.86 00 colonoscop Medi amy gram y Branch solution omeprazole 2022-09 Yes [id number] 40mg Take 1 U nivers 40 mg 0-27 capsule by ity of capsule 00:00: mouth in [place] 00 the Medical morning Branch and 1 capsule in the evening. peg-electro 2022-09 Yes [id number] Take as Univers lyte soln 0-27 directed ity of 236-22.74-6 00:00: before [place] .74 -5.86 00 colonoscop Medi amy gram y Branch solution omeprazole 2022-09 Yes [id number] 40mg Take 1 U nivers 40 mg 0-27 capsule by ity of capsule 00:00: mouth in [place] 00 the Medical morning Branch and 1 capsule in the evening. peg-electro 2022-09 Yes [id number] Take as Univers lyte soln 0-27 directed ity of 236-22.74-6 00:00: before [place] .74 -5.86 00 colonoscop Medi amy gram y Branch solution omeprazole 2022-09 Yes [id number] 40mg Take 1 U nivers 40 mg 0-27 capsule by ity of capsule 00:00: mouth in [place] 00 the Medical morning Branch and 1 capsule in the evening. peg-electro 2022-09 Yes [id number] Take as Univers lyte soln 0-27 directed ity of 236-22.74-6 00:00: [place] .74 -5.86 00 colonoscop Medi amy gram y Branch solution omeprazole 2022-09 Yes [id number] 40mg Take 1 U nivers 40 mg 0-27 capsule by ity of capsule 00:00: mouth in [place] 00 the Medical morning Branch and 1 capsule in the evening. peg-electro 2022-09 Yes [id number] Take as Univers lyte soln 0-27 directed ity of 236-22.74-6 00:00: before [place] .74 -5.86 00 colonoscop Medi amy gram y Branch solution omeprazole 2022-09 Yes [id number] 40mg Take 1 U nivers 40 mg 0-27 capsule by ity of capsule 00:00: mouth in [place] 00 the Medical morning Branch and 1 capsule in the evening. peg-electro 2022-09 Yes [id number] Take as Univers lyte soln 0-27 directed ity of 236-22.74-6 00:00: before [place] .74 -5.86 00 colonoscop Medi amy gram y Branch solution Lisinopril 2022-09 Yes 10mg [...] 07/03/23 at 0800, VASILIY iohexol 2022-09- No [id number] 80mL 80 mL, Uni vers (OMNIPAQUE 0-20 [...] Fri Branch 07/03/23 at 0515, VASILIY morpHINE (2022-09- No 4mg 4 mg, Slow Univers mg/mL) [...] Kelsi ey -Acetaminop 0-20 TABLET BY Britany bold hen (NORCO) 00:00: MOUTH - 5-325 MG 00 [...] Indication s: acute pain famotidine 2022-09 Yes [id number] 20mg Take 1 Univers (PEPCID) 20 0-20 tablet by ity of mg tablet 00:00: [place] 00 the Medical morning Branch and 1 tablet in the evening. pantoprazol 2022-09 Yes [id number] 20mg Take 1 Univers e 0-20 tablet [...] 10 doses. Indication s: acute pain famotidine 2022-09- No [id number] 20mg Take 1 Univers (PEPCID) 20 0-20 10-27 tablet by it y of mg tablet 00:00: 00:00 mouth in [place] 00 :00 the Medical morning Branch and 1 tablet in the evening. pantoprazol 2022-09- No [id number] 20mg Take 1 Univers e 0-20 10-27 tablet by ity of (PROTONIX) 00:00: 00:00 mouth in [place] 20 mg EC 00 :00 the Medical tablet morning. Branch famotidine 2022-09- No [id number] 20mg Take 1 Univers (PEPCID) 20 0-20 10-27 tablet by it y of mg tablet 00:00: 00:00 mouth in [place] 00 :00 the Medical morning Branch and 1 tablet in the evening. pantoprazol 2022-09- No [id number] 20mg Take 1 Univers e 0-20 10-27 tablet by ity of (PROTONIX) 00:00: 00:00 mouth in [place] 20 mg EC 00 :00 the Medical tablet morning. Branch famotidine 2022-09- No [id number] 20mg Take 1 Univers (PEPCID) 20 0-20 10-27 tablet by it y of mg tablet 00:00: 00:00 mouth in [place] 00 :00 the Medical morning Branch and 1 tablet in the evening. pantoprazol 2022-09- No [id number] 20mg Take 1 Univers e 0-20 10-27 tablet by ity of (PROTONIX) 00:00: 00:00 mouth in [place] 20 mg EC 00 :00 the Medical tablet morning. Branch Lisinopril Yes 10mg Take 1 Kelse y 10 MG oral 9-06 tablet (10 Sey bold Tablet 15:08: mg total) - 12 by mouth Externa daily. l Tamsulosin 0 Yes .4mg Take 1 Kelse y HCl 0.4 MG 9-06 capsule Seybol d oral 00:00: (0.4 mg - Capsule 00 total) by Externa mouth l every night at bedtime. Tamsulosin 2022- No .4mg Take 1 Kelsi ey HCl 0.4 MG 9-06 10-25 capsule Seybo ld oral 00:00: 00:00 (0.4 mg - Capsule 00 :00 total) by Externa mouth l every night at bedtime. iopamidol 2022- No [id number] 80mL 80 mL, Univers (ISOVUE 05-08 08-25 Intravenou ity o f 370-500 mL) 03:15: 02:12 s, ONCE, 1 [place] injection 00 :00 dose, On Medica l 80 mL [place] Branch 05/07/23 at 2215, Routine morpHINE (4 2022- No 4mg 4 mg, Slow Univers mg/mL) 05-08- IV Push, ity of injection 4 01:00: 01:38 ONCE, 1 [place] mg 00 :00 dose, On Medical [place] Branch 05/07/23 at 2000, VASILIY NaCl 0.9% 2022-0 2022- No 1000mL at 999 Uni vers (NS) bolus 05-08 08-25 mL/hr, ity of infusion 01:00: 04:22 1,000 mL, [place] 1,000 mL 00 :00 IV Medical Infusion, Branch ONCE, 1 dose, On [place] 05/07/23 at 2000, VASILIY NaCl 0.9% 0 2022- No 1000mL at 999 Uni vers (NS) bolus 05-02- mL/hr, ity of infusion 05:15: 05:29 1,000 mL, [place] 1,000 mL 00 :00 IV Medical Infusion, Branch ONCE, 1 dose, On 05/02/23 at 0015, STAT famotidine 2022- No 20mg 20 mg, Univ [...] amy 1:1:1 Fri Branch ([facility] 05/01/23 at [facility]) 2315, VASILIY oral suspension 15 mL ondansetron 0 2022- No 4mg 4 mg, Slow Univers (ZOFRAN 05-02 IV Push, ity of (PF)) 04:15: 03:18 ONCE, 1 [place] injection 4 00 :00 dose, On Medi amy mg Fri Branch 05/01/23 at 2315, VASILIY NaCl 0.9% 2022-0 2022- No 1000mL at 999 Uni vers (NS) bolus 05-02 mL/hr, ity of infusion 04:15: 04:15 1,000 mL, [place] 1,000 mL 00 :00 IV Medical Infusion, Branch ONCE, 1 dose, On Thu05/01/23 at 2315, STAT metoclopram 2023-0 Yes [id number] 10mg Take 1 Univers jerilyn HCl 10 8-18 tablet by ity of mg tablet 00:00: mouth [place] 00 every 6 Medical (six) Branch hours. pantoprazol 2023-0 Yes [id number] 20mg Take 1 Univers e 8-18 tablet by ity of (PROTONIX) 00:00: mouth in [place] 20 mg EC 00 the Medical tablet morning. Branch metoclopram 2023-0 Yes [id number] 10mg Take 1 Univers jerilyn HCl 10 8-18 tablet by ity of mg tablet 00:00: mouth [place] 00 every 6 Medical (six) Branch hours. pantoprazol 2023-0 Yes [id number] 20mg Take 1 Univers e 8-18 tablet by ity of (PROTONIX) 00:00: mouth in [place] 20 mg EC 00 the Medical tablet morning. Branch metoclopram 2023-0 Yes [id number] 10mg Take 1 Univers jerilyn HCl 10 8-18 tablet by ity of mg tablet 00:00: mouth [place] 00 every 6 Medical (six) Branch hours. metoclopram 2023-0 Yes [id number] 10mg Take 1 Univers jerilyn HCl 10 8-18 tablet by ity of mg tablet 00:00: mouth [place] 00 every 6 Medical (six) Branch hours. metoclopram 2023-0 Yes [id number] 10mg Take 1 Univers jerilyn HCl 10 8-18 tablet by ity of mg tablet 00:00: mouth [place] 00 every 6 Medical (six) Branch hours. metoclopram 2023-0 Yes [id number] 10mg Take 1 Univers jerilyn HCl 10 8-18 tablet by ity of mg tablet 00:00: mouth [place] 00 every 6 Medical (six) Branch hours. metoclopram 2023-0 Yes [id number] 10mg Take 1 Univers jerilyn HCl 10 8-18 tablet by ity of mg tablet 00:00: mouth [place] 00 every 6 Medical (six) Branch hours. metoclopram 2023-0 Yes [id number] 10mg Take 1 Univers jerilyn HCl 10 8-18 tablet by ity of mg tablet 00:00: mouth [place] 00 every 6 Medical (six) Branch hours. metoclopram 2023-0 Yes [id number] 10mg Take 1 Univers jerilyn HCl 10 8-18 tablet by ity of mg tablet 00:00: mouth [place] 00 every 6 Medical (six) Branch hours. metoclopram 2023-0 Yes [id number] 10mg Take 1 Univers jerilyn HCl 10 8-18 tablet by ity of mg tablet 00:00: mouth [place] 00 every 6 Medical (six) Branch hours. metoclopram 2023-0 Yes [id number] 10mg Take 1 Univers jerilyn HCl 10 8-18 tablet by ity of mg tablet 00:00: mouth [place] 00 every 6 Medical (six) Branch hours. metoclopram 2023-0 Yes [id number] 10mg Take 1 Univers jerilyn HCl 10 8-18 tablet by ity of mg tablet 00:00: mouth [place] 00 every 6 Medical (six) Branch hours. pantoprazol 2022-0 2022- No [id number] 20mg Take 1 Univers e 8-18 10-20 tablet by ity of (PROTONIX) 00:00: 00:00 mouth in [place] 20 mg EC 00 :00 the Medical tablet morning. Branch iopamidol 2022-0 2022- No [id number] 70mL 70 mL, U nivers (ISOVUE 04-22 Intravenou ity o f 370-500 mL) 16:21: 16:21 s, ONCE, 1 [place] injection 00 :00 dose, On Medica l 70 mL 04/22/23 Branch at 1145, Routine haloperidol 2022- No 2.5mg 2.5 mg, U nivers lactate 04-22 Intravenou ity o f (HALDOL) 16:00: 16:01 s, ONCE, 1 [place] injection 00 :00 dose, On Medica l 2.5 mg Thu04/22/23 Branch at 1100, STAT NaCl 0.9% 2022-2022- No 500mL at 999 Univ ers (NS) bolus 04-22 mL/hr, 500 it y of infusion 14:45: 15:30 mL, IV [place] 500 mL 00 :00 Infusion, Medical ONCE, 1 Branch dose, On Thu04/22/23 at 0945, STAT maalox:diph 2022-2022- No 15mL 15 mL, Uni vers enhydrAMINE 04-22 Oral, ity of :lidocaine 13:00: 12:55 ONCE, 1 [place] 2 % viscous 00 :00 dose, On Medi amy 1:1:1 Thu04/22/23 Branch (FIRST-MOUT at 0800, [facility]) Routine oral suspension 15 mL NaCl 0.9% 0 Yes 1000mL at 999 Univ ers (NS) IV 8-09 mL/hr, ity of infusion 12:45: Intravenou [place] 1,000 mL 00 s, Medical CONTINUOUS Branch , Starting on Thu04/22/23 at 0745, Until Discontinu ed, Routine NaCl 0.9% 2022-0 2022- No 1000mL at 999 Uni vers (NS) bolus 04-22 mL/hr, ity of infusion 10:30: 11:30 1,000 mL, [place] 1,000 mL 00 :00 IV Medical Infusion, Branch ONCE, 1 dose, On Thu04/22/23 at 0530, STAT ketorolac 0 2022- No 30mg 30 mg, Unive rs (TORADOL) 04-22 Slow IV ity of injection 10:30: 09:21 Push, [place] 30 mg 00 :00 ONCE, 1 Medical dose, On Branch Thu04/22/23 at 0530, Routine diphenhydrA 0 2022- No 25mg 25 mg, Uni vers MINE 04-22 Slow IV ity of (BENADRYL) 09:30: 09:21 Push, [place] injection 00 :00 ONCE, 1 Medical 25 mg dose, On Branch Thu04/22/23 at 0430, STAT metoclopram 2022-0 2022- No 10mg 10 mg, Uni vers jerilyn HCl 04-22 Slow IV ity of (REGLAN) 09:30: 09:21 Push, [place] injection 00 :00 ONCE, 1 Medical 10 mg dose, On Branch Thu04/22/23 at 0430, VASILIY NaCl 0.9% 2022-0 2022- No 1000mL at 999 Uni vers (NS) bolus 04-22- mL/hr, ity of infusion 09:15: 10:28 1,000 mL, [place] 1,000 mL 00 :00 IV Medical Infusion, Branch ONCE, 1 dose, On Thu04/22/23 at 0415, STAT Promethazin 2022-0 Yes 25mg Q.25D Take 1 Manoj sey e HCl 8-09 tablet (25 Seybold (PHENERGAN) 00:00: mg total) - 25 MG oral 00 by mouth Exter na Tablet every 6 l hours as needed. ondansetron 2022-0 Yes [id number] 4mg Take 1 Univers (ZOFRAN) 4 8-09 05 tablet by ity of mg tablet 00:00: mouth [place] 00 every 8 Medical (eight) Branch hours as needed for Nausea and Vomiting (N/V). proMETHazin 2022-0 Yes [id number] 25mg Take 1 Univers e 25 mg 8-09 tablet by ity of tablet 00:00: mouth [place] 00 every 6 Medical (six) Branch hours as needed for Nausea and Vomiting (N/V) or N/V unresponsi ve to Ondansetro n. ondansetron 2022-0 Yes [id number] 4mg Take 1 Univers (ZOFRAN) 4 8- 05 tablet by ity of mg tablet 00:00: mouth [place] 00 every 8 Medical (eight) Branch hours as needed for Nausea and Vomiting (N/V). proMETHazin 2022-0 Yes [id number] 25mg Take 1 Univers e 25 mg 8-09 tablet by ity of tablet 00:00: mouth [place] 00 every 6 Medical (six) Branch hours as needed for Nausea and Vomiting (N/V) or N/V unresponsi ve to Ondansetro n. ondansetron 2022-0 Yes [id number] 4mg Take 1 Univers (ZOFRAN) 4 8-09 05 tablet by ity of mg tablet 00:00: mouth [place] 00 every 8 Medical (eight) Branch hours as needed for Nausea and Vomiting (N/V). proMETHazin 3-0 Yes [id number] 25mg Take 1 Univers e 25 mg 8-09 tablet by ity of tablet 00:00: mouth [place] 00 every 6 Medical (six) Branch hours as needed for Nausea and Vomiting (N/V) or N/V unresponsi ve to Ondansetro n. ondansetron 2022-0 Yes [id number] 4mg Take 1 Univers (ZOFRAN) 4 8-09 05 tablet by ity of mg tablet 00:00: mouth [place] 00 every 8 Medical (eight) Branch hours as needed for Nausea and Vomiting (N/V). proMETHazin 3-0 Yes [id number] 25mg Take 1 Univers e 25 mg 8-09 tablet by ity of tablet 00:00: mouth [place] 00 every 6 Medical (six) Branch hours as needed for Nausea and Vomiting (N/V) or N/V unresponsi ve to Ondansetro n. ondansetron 2022-0 Yes [id number] 4mg Take 1 Univers (ZOFRAN) 4 8-09 05 tablet by ity of mg tablet 00:00: mouth [place] 00 every 8 Medical (eight) Branch hours as needed for Nausea and Vomiting (N/V). proMETHazin 2022-0 Yes [id number] 25mg Take 1 Univers e 25 mg 8-09 tablet by ity of tablet 00:00: mouth [place] 00 every 6 Medical (six) Branch hours as needed for Nausea and Vomiting (N/V) or N/V unresponsi ve to Ondansetro n. ondansetron 2022-0 Yes [id number] 4mg Take 1 Univers (ZOFRAN) 4 8-09 05 tablet by ity of mg tablet 00:00: mouth [place] 00 every 8 Medical (eight) Branch hours as needed for Nausea and Vomiting (N/V). proMETHazin 2022-0 Yes [id number] 25mg Take 1 Univers e 25 mg 8-09 tablet by ity of tablet 00:00: mouth [place] 00 every 6 Medical (six) Branch hours as needed for Nausea and Vomiting (N/V) or N/V unresponsi ve to Ondansetro n. ondansetron 2022-0 Yes [id number] 4mg Take 1 Univers (ZOFRAN) 4 8-09 05 tablet by ity of mg tablet 00:00: mouth [place] 00 every 8 Medical (eight) Branch hours as needed for Nausea and Vomiting (N/V). proMETHazin 2022-0 Yes [id number] 25mg Take 1 Univers e 25 mg 8-09 tablet by ity of tablet 00:00: mouth [place] 00 every 6 Medical (six) Branch hours as needed for Nausea and Vomiting (N/V) or N/V unresponsi ve to Ondansetro n. ondansetron 2023-0 Yes [id number] 4mg Take 1 Univers (ZOFRAN) 4 8-09 05 tablet by ity of mg tablet 00:00: mouth [place] 00 every 8 Medical (eight) Branch hours as needed for Nausea and Vomiting (N/V). proMETHazin 2022-0 Yes [id number] 25mg Take 1 Univers e 25 mg 8-09 tablet by ity of tablet 00:00: mouth [place] 00 every 6 Medical (six) Branch hours as needed for Nausea and Vomiting (N/V) or N/V unresponsi ve to Ondansetro n. ondansetron 2022-0 Yes [id number] 4mg Take 1 Univers (ZOFRAN) 4 8-09 05 tablet by ity of mg tablet 00:00: mouth [place] 00 every 8 Medical (eight) Branch hours as needed for Nausea and Vomiting (N/V). proMETHazin 2022-0 Yes [id number] 25mg Take 1 Univers e 25 mg 8-09 tablet by ity of tablet 00:00: mouth [place] 00 every 6 Medical (six) Branch hours as needed for Nausea and Vomiting (N/V) or N/V unresponsi ve to Ondansetro n. ondansetron 2022-0 Yes [id number] 4mg Take 1 [facility] (ZOFRAN) 4 8-09 05 tablet by ity of mg tablet 00:00: mouth [place] 00 every 8 Medical (eight) Branch hours as needed for Nausea and Vomiting (N/V). proMETHazin 2022-0 Yes [id number] 25mg Take 1 [facility] e 25 mg 8-09 tablet by ity of tablet 00:00: mouth [place] 00 every 6 Medical (six) Branch hours as needed for Nausea and Vomiting (N/V) or N/V unresponsi ve to Ondansetro n. ondansetron 2022-0 Yes [id number] 4mg Take 1 [facility] (ZOFRAN) 4 8-09 05 tablet by ity of mg tablet 00:00: mouth [place] 00 every 8 Medical (eight) Branch hours as needed for Nausea and Vomiting (N/V). proMETHazin 3-0 Yes [id number] 25mg Take 1 [facility] e 25 mg 8-09 tablet by ity of tablet 00:00: mouth [place] 00 every 6 Medical (six) Branch hours as needed for Nausea and Vomiting (N/V) or N/V unresponsi ve to Ondansetro n. ondansetron 3-0 Yes [id number] 4mg Take 1 [facility] (ZOFRAN) 4 8-09 05 tablet by ity of mg tablet 00:00: mouth [place] 00 every 8 Medical (eight) Branch hours as needed for Nausea and Vomiting (N/V). proMETHazin 2022-0 Yes [id number] 25mg Take 1 [facility] e 25 mg 8-09 tablet by ity of tablet 00:00: mouth [place] 00 every 6 Medical (six) Branch hours as needed for Nausea and Vomiting (N/V) or N/V unresponsi ve to Ondansetro n. ondansetron 2022-0 Yes [id number] 4mg Take 1 [facility] (ZOFRAN) 4 8-09 05 tablet by ity of mg tablet 00:00: mouth [place] 00 every 8 Medical (eight) Branch hours as needed for Nausea and Vomiting (N/V). Tramadol 2022-0 Yes 50mg Q.25D Take 1 [facility] HCl 8-09 tablet (50 [facility] (ULTRAM) 50 00:00: mg total) - MG oral 00 by mouth Externa Tablet every 6 l hours as needed FOR PAIN. proMETHazin 2022-0 Yes [id number] 25mg Take 1 [facility] e 25 mg 8-09 tablet by ity of tablet 00:00: mouth [place] 00 every 6 Medical (six) Branch hours as needed for Nausea and Vomiting (N/V) or N/V unresponsi ve to Ondansetro n. Ondansetron 2022-0 Yes TAKE 1 Kelsi ey [...] every 6 l hours as needed. Tramadol 3-0 Yes 50mg Q.25D Take 1 [facility] HCl 8-09 tablet (50 [facility] (ULTRAM) 50 00:00: mg total) - MG oral 00 by mouth Externa Tablet every 6 l hours as needed FOR PAIN. Ondansetron Yes TAKE 1 Kelsi ey HCl 4 MG 04-22 TABLET BY Seybol d oral Tablet 00:00: MOUTH - 00 EVERY 8 Externa HOURS l NEEDED FOR NAUSEA AND VOMITING traMADoL 50 2022- No [id number] 50mg Take 1 Uni vers mg tablet 04-22 tablet by ity of 00:00: 04:59 mouth [place] 00 :00 every 6 Medical (six) Branch hours as needed for Pain (scale 7-10) for up to 7 days. Indication s: acute pain lipase-prot Yes 2{capsu 2 capsule, [facility] ease-amylas 8-03 le} Oral, ity of e (CREON) 14:15: ONCE, 1 [place] 12,000-38,0 00 dose, On Medi amy 00 -60,000 [place] 04/16/23 [facility] at 0915, capsule 2 Routine capsule lipase-prot Yes 2{capsu 2 capsule, [facility] ease-amylas 04-16 le} Oral, ity of e (CREON) 14:15: ONCE, 1 [place] 12,000-38,0 00 dose, On Medi amy 00 -60,000 [place] 04/16/23 [facility] at 0915, capsule 2 Routine capsule famotidine 2022- No 20mg 20 mg, Univ ers (PEPCID 04-16 Slow IV ity of (PF)) 13:30: 12:33 Push, ONCE [place] injection 00 :00 NOW, 1 Medical 20 mg dose, On Branch [place] 04/16/23 at 0830, VASILIY dicyclomine 2022- No 20mg 20 mg, Uni vers (BENTYL) 04-16 Intramuscu ity of injection 13:30: 12:34 lar, ONCE [place] 20 mg 00 :00 NOW, 1 Medical dose, On Branch [place] 04/16/23 at 0830, Routine famotidine 2022- No 20mg 20 mg, Univ ers (PEPCID 04-16 Slow IV ity of (PF)) 13:30: 12:33 Push, ONCE [place] injection 00 :00 NOW, 1 Medical 20 mg dose, On Branch [place] 04/16/23 at 0830, VASILIY dicyclomine 2022- No 20mg 20 mg, Uni vers (BENTYL) 04-16 Intramuscu ity of injection 13:30: 12:34 lar, ONCE [place] 20 mg 00 :00 NOW, 1 Medical dose, On Branch [facility] 04/16/23 at 0830, Routine enalaprilat 2022-0 2022- No 1.25mg 1.25 mg, [facility] (VASOTEC 04-16 Slow IV ity of I.V.) 13:15: 13:17 Push, [place] injection 00 :00 ONCE, 1 Medical 1.25 mg dose, On [facility] 04/16/23 at 0815, STAT lactulose 2022- No 45mL 45 mL, Unive rs (CEPHULAC) 04-16 Oral, ity of solution 45 13:15: 13:18 ONCE, 1 [place] mL 00 :00 dose, On Medical [facility] 04/16/23 Branch at 0815, VASILIY ketorolac 2022- No 30mg 30 mg, Unive rs (TORADOL) 04-16 Slow IV ity of injection 13:15: 12:32 Push, ONCE [place] 30 mg 00 :00 NOW, 1 Medical dose, On [facility] 04/16/23 at 0815, VASILIY NaCl 0.9% 2022- No 1000mL at 999 Uni vers (NS) bolus 04-16 mL/hr, ity of infusion 13:15: 13:54 1,000 mL, [place] 1,000 mL 00 :00 IV Medical Piggyback, Branch ONCE, 1 dose, On [facility] 04/16/23 at 0815, STAT enalaprilat 2022- No 1.25mg 1.25 mg, [facility] (VASOTEC 04-16 Slow IV ity of I.V.) 13:15: 13:17 Push, [place] injection 00 :00 ONCE, 1 Medical 1.25 mg dose, On Branch [facility] 04/16/23 at 0815, STAT lactulose 2022-0 2022- No 45mL 45 mL, Unive rs (CEPHULAC) 04-16 Oral, ity of solution 45 13:15: 13:18 ONCE, 1 [place] mL 00 :00 dose, On Medical [place] 04/16/23 Branch at 0815, VASILIY ketorolac 2022-0 2022- No 30mg 30 mg, Unive rs (TORADOL) 04-16 Slow IV ity of injection 13:15: 12:32 Push, ONCE [place] 30 mg 00 :00 NOW, 1 Medical dose, On Branch [place] 04/16/23 at 0815, VASILIY NaCl 0.9% 2022-2022- No 1000mL at 999 Uni vers (NS) bolus 04-16 mL/hr, ity of infusion 13:15: 13:54 1,000 mL, [place] 1,000 mL 00 :00 IV Medical Piggyback, Branch ONCE, 1 dose, On [place] 04/16/23 at 0815, STAT Bisacodyl 2023-0 Yes 5mg QD Take 1 [facility] (DULCOLAX) 04-16 tablet (5 Seyb old 5 MG oral 00:00: mg total) - Tablet 00 by mouth Externa Delayed daily as l Response needed. Famotidine 3-0 Yes 20mg Take 1 [facility] (PEPCID) 20 - tablet (20 Se [facility]bold MG oral 00:00: mg total) - tablet 00 by mouth 2 Externa times l daily. Bisacodyl 2023-0 Yes 5mg QD Take 1 [facility] (DULCOLAX) -03 tablet (5 Seyb old 5 MG oral 00:00: mg total) - Tablet 00 by mouth Externa Delayed daily as l Response needed. lipase-prot 2023-0 Yes [id number] 3000U Take 1 [facility] ease-amylas - capsule by it y of e (CREON) 00:00: mouth [place] 3,000-9,500 00 the Medical - 15,000 morning Branch unit and 1 capsule capsule at noon and 1 capsule in the evening. Take with meals. hyoscyamine 2023-[id number] 2 [facility] sulfate 8- tablets ity of (LEVSIN/SL) 00:00: under the [place] 0.125 mg 00 tongue Medical sublingual every 6 Branch tablet (six) hours as needed (Abdominal pain or cramping). famotidine 2022-0 Yes [id number] 20mg Take 1 [facility] (PEPCID) 20 8-03 tablet by ity of mg tablet 00:00: mouth [place] 00 the Medical morning Branch and 1 tablet in the evening. bisacodyL 5 2022-0 Yes [id number] 5mg Take 1 [facility] mg EC 8-03 tablet by ity of tablet 00:00: mouth once [place] 00 daily as Medical needed for Branch Constipati on. lipase-prot 2022-0 Yes [id number] 3000U Take 1 [facility] ease-amylas 8-03 capsule by it y of e (CREON) 00:00: mouth [place] 3,000-9,500 00 the Medical - 15,000 morning Branch unit and 1 capsule capsule at noon and 1 capsule in the evening. Take with meals. hyoscyamine 2022-[id number] 2 [facility] sulfate 8-03 tablets ity of (LEVSIN/SL) 00:00: under the [place] 0.125 mg 00 tongue Medical sublingual every 6 Branch tablet (six) hours as needed (Abdominal pain or cramping). famotidine 2022-0 Yes [id number] 20mg Take 1 [facility] (PEPCID) 20 8-03 tablet by ity of mg tablet 00:00: mouth [place] 00 the Medical morning Branch and 1 tablet in the evening. bisacodyL 5 2022-0 Yes [id number] 5mg Take 1 [facility] mg EC 8-03 tablet by ity of tablet 00:00: mouth once [place] 00 daily as Medical needed for Branch Constipati on. lipase-prot 2022-0 Yes [id number] 3000U Take 1 [facility] ease-amylas 8-03 capsule by it y of e (CREON) 00:00: mouth [place] 3,000-9,500 00 the Medical - 15,000 morning Branch unit and 1 capsule capsule at noon and 1 capsule in the evening. Take with meals. hyoscyamine 2022-[id number] 2 [facility] sulfate 8-03 tablets ity of (LEVSIN/SL) 00:00: under the [place] 0.125 mg 00 tongue Medical sublingual every 6 Branch tablet (six) hours as needed (Abdominal pain or cramping). bisacodyL 5 2022-0 Yes [id number] 5mg Take 1 [facility] mg EC 8-03 tablet by ity of tablet 00:00: mouth once [place] 00 daily as Medical needed for Branch Constipati on. lipase-prot 2022-0 Yes [id number] 3000U Take 1 [facility] ease-amylas 8-03 capsule by it y of e (CREON) 00:00: mouth [place] 3,000-9,500 00 the Medical - 15, morning Branch unit and 1 capsule capsule at noon and 1 capsule in the evening. Take with meals. hyoscyamine 2022-[id number] 2 [facility] sulfate 8-03 tablets ity of (LEVSIN/SL) 00:00: under the [place] 0.125 mg 00 tongue Medical sublingual every 6 Branch tablet (six) hours as needed (Abdominal pain or cramping). bisacodyL 5 2022-0 Yes [id number] 5mg Take 1 [facility] mg EC 8-03 tablet by ity of tablet 00:00: mouth once [place] 00 daily as Medical needed for Branch Constipati on. lipase-prot 2022-0 Yes [id number] 3000U Take 1 [facility] ease-amylas 8-03 capsule by it y of e (CREON) 00:00: mouth in [facility] s 3,000-9,500 00 the Medical - , morning Branch unit and 1 capsule capsule at noon and 1 capsule in the evening. Take with meals. hyoscyamine 2022-[id number] 2 [facility] sulfate 8-03 tablets ity of (LEVSIN/SL) 00:00: under the [place] 0.125 mg 00 tongue Medical sublingual every 6 Branch tablet (six) hours as needed (Abdominal pain or cramping). bisacodyL 5 2022-0 Yes [id number] 5mg Take 1 [facility] mg EC 8-03 tablet by ity of tablet 00:00: mouth once [place] 00 daily as Medical needed for Branch Constipati on. lipase-prot 2022-0 Yes [id number] 3000U Take 1 [facility] ease-amylas 8-03 capsule by it y of e (CREON) 00:00: mouth in [facility] s 3,000-9,500 00 the Medical - 15,000 morning Branch unit and 1 capsule capsule at noon and 1 capsule in the evening. Take with meals. hyoscyamine 2023-[id number] 2 [facility] sulfate 8-03 tablets ity of (LEVSIN/SL) 00:00: under the [place] 0.125 mg 00 tongue Medical sublingual every 6 Branch tablet (six) hours as needed (Abdominal pain or cramping). bisacodyL 5 2022-0 Yes [id number] 5mg Take 1 [facility] mg EC 8-03 tablet by ity of tablet 00:00: mouth once [place] 00 daily as Medical needed for Branch Constipati on. lipase-prot 2022-0 Yes [id number] 3000U Take 1 [facility] ease-amylas 8-03 capsule by it y of e (CREON) 00:00: mouth [place] 3,000-9,500 00 the Medical - 15,000 morning Branch unit and 1 capsule capsule at noon and 1 capsule in the evening. Take with meals. hyoscyamine 3-[id number] 2 [facility] sulfate 8-03 tablets ity of (LEVSIN/SL) 00:00: under the [place] 0.125 mg 00 tongue Medical sublingual every 6 Branch tablet (six) hours as needed (Abdominal pain or cramping). bisacodyL 5 2022-0 Yes [id number] 5mg Take 1 [facility] mg EC 8-03 tablet by ity of tablet 00:00: mouth once [place] 00 daily as Medical needed for Branch Constipati on. lipase-prot 3-0 Yes [id number] 3000U Take 1 [facility] ease-amylas 8-03 capsule by it y of e (CREON) 00:00: mouth [place] 3,000-9,500 00 the Medical - 15,000 morning Branch unit and 1 capsule capsule at noon and 1 capsule in the evening. Take with meals. hyoscyamine 2023-[id number] 2 [facility] sulfate 8-03 tablets ity of (LEVSIN/SL) 00:00: under the [place] 0.125 mg 00 tongue Medical sublingual every 6 Branch tablet (six) hours as needed (Abdominal pain or cramping). bisacodyL 5 2023-0 Yes [id number] 5mg Take 1 [facility] mg EC 8-03 tablet by ity of tablet 00:00: mouth once [place] 00 daily as Medical needed for Branch Constipati on. lipase-prot 2022-0 Yes [id number] 3000U Take 1 [facility] ease-amylas 8-03 capsule by it y of e (CREON) 00:00: mouth [place] 3,000-9,500 00 the Medical - 15,000 morning Branch unit and 1 capsule capsule at noon and 1 capsule in the evening. Take with meals. hyoscyamine 2022-[id number] 2 [facility] sulfate 8-03 tablets ity of (LEVSIN/SL) 00:00: under the [place] 0.125 mg 00 tongue Medical sublingual every 6 Branch tablet (six) hours as needed (Abdominal pain or cramping). bisacodyL 5 2022-0 Yes [id number] 5mg Take 1 [facility] mg EC 8-03 tablet by ity of tablet 00:00: mouth once [place] 00 daily as Medical needed for Branch Constipati on. lipase-prot 2022-0 Yes [id number] 3000U Take 1 [facility] ease-amylas 8-03 capsule by it y of e (CREON) 00:00: mouth [place] 3,000-9,500 00 the Medical - 15,000 morning Branch unit and 1 capsule capsule at noon and 1 capsule in the evening. Take with meals. hyoscyamine 3-[id number] 2 [facility] sulfate 8-03 tablets ity of (LEVSIN/SL) 00:00: under the [place] 0.125 mg 00 tongue Medical sublingual every 6 Branch tablet (six) hours as needed (Abdominal pain or cramping). bisacodyL 5 2022-0 Yes [id number] 5mg Take 1 [facility] mg EC 8-03 tablet by ity of tablet 00:00: mouth once [place] 00 daily as Medical needed for Branch Constipati on. lipase-prot 2022-0 Yes [id number] 3000U Take 1 [facility] ease-amylas 8-03 capsule by it y of e (CREON) 00:00: mouth [place] 3,000-9,500 00 the Medical - 15,000 morning Branch unit and 1 capsule capsule at noon and 1 capsule in the evening. Take with meals. hyoscyamine 3-[id number] 2 [facility] sulfate 8-03 tablets ity of (LEVSIN/SL) 00:00: under the [place] 0.125 mg 00 tongue Medical sublingual every 6 Branch tablet (six) hours as needed (Abdominal pain or cramping). bisacodyL 5 2022-0 Yes [id number] 5mg Take 1 [facility] mg EC 8-03 tablet by ity of tablet 00:00: mouth once [place] 00 daily as Medical needed for Branch Constipati on. lipase-prot 3-0 Yes [id number] 3000U Take 1 [facility] ease-amylas 8-03 capsule by it y of e (CREON) 00:00: mouth [place] 3,000-9,500 00 the Medical - 15,000 morning Branch unit and 1 capsule capsule at noon and 1 capsule in the evening. Take with meals. hyoscyamine 2022-[id number] 2 [facility] sulfate 8-03 tablets ity of (LEVSIN/SL) 00:00: under the [place] 0.125 mg 00 tongue Medical sublingual every 6 Branch tablet (six) hours as needed (Abdominal pain or cramping). bisacodyL 5 2022-0 Yes [id number] 5mg Take 1 [facility] mg EC 8-03 tablet by ity of tablet 00:00: mouth once [place] 00 daily as Medical needed for Branch Constipati on. lipase-prot 3-0 Yes [id number] 3000U Take 1 [facility] ease-amylas 8-03 capsule by it y of e (CREON) 00:00: mouth [place] 3,000-9,500 00 the Medical - 15,000 morning Branch unit and 1 capsule capsule at noon and 1 capsule in the evening. Take with meals. hyoscyamine 3-[id number] 2 [facility] sulfate 8-03 tablets ity of (LEVSIN/SL) 00:00: under the [place] 0.125 mg 00 tongue Medical sublingual every 6 Branch tablet (six) hours as needed (Abdominal pain or cramping). famotidine 2022-0 Yes [id number] 20mg Take 1 [facility] (PEPCID) 20 8-03 tablet by ity of mg tablet 00:00: mouth [place] 00 the Medical morning Branch and 1 tablet in the evening. bisacodyL 5 2022-0 Yes [id number] 5mg Take 1 [facility] mg EC 8-03 tablet by ity of tablet 00:00: mouth once [place] 00 daily as Medical needed for Branch Constipati on. lipase-prot 2022-0 Yes [id number] 3000U Take 1 [facility] ease-amylas 8-03 capsule by it y of e (CREON) 00:00: mouth [place] 3,000-9,500 00 the Medical - 15,000 morning Branch unit and 1 capsule capsule at noon and 1 capsule in the evening. Take with meals. hyoscyamine 2022-[id number] 2 [facility] sulfate 8-03 tablets ity of (LEVSIN/SL) 00:00: under the [place] 0.125 mg 00 tongue Medical sublingual every 6 Branch tablet (six) hours as needed (Abdominal pain or cramping). famotidine 2022-0 Yes [id number] 20mg Take 1 [facility] (PEPCID) 20 8-03 tablet by ity of mg tablet 00:00: mouth [place] 00 the Medical morning Branch and 1 tablet in the evening. bisacodyL 5 2022-0 Yes [id number] 5mg Take 1 [facility] mg EC 8-03 tablet by ity of tablet 00:00: mouth once [place] 00 daily as Medical needed for Branch Constipati on. lipase-prot 2022-0 Yes [id number] 3000U Take 1 [facility] ease-amylas 8-03 capsule by it y of e (CREON) 00:00: mouth [place] 3,000-9,500 00 the Medical - 15,000 morning Branch unit and 1 capsule capsule at noon and 1 capsule in the evening. Take with meals. hyoscyamine 3-[id number] 2 [facility] sulfate 8-03 tablets ity of (LEVSIN/SL) 00:00: under the [place] 0.125 mg 00 tongue Medical sublingual every 6 Branch tablet (six) hours as needed (Abdominal pain or cramping). famotidine 2022-0 Yes [id number] 20mg Take 1 [facility] (PEPCID) 20 8-03 tablet by ity of mg tablet 00:00: mouth [place] 00 the Medical morning Branch and 1 tablet in the evening. bisacodyL 5 2022-0 Yes [id number] 5mg Take 1 [facility] mg EC 8- tablet by ity of tablet 00:00: mouth once [place] 00 daily as Medical needed for Branch Constipati on. Famotidine 2022-0 Yes 20mg Take 1 Kelse [facility] (PEPCID) 20 8-03 tablet (20 Se [facility]bold MG oral 00:00: mg total) - tablet 00 by mouth 2 Externa times l daily. famotidine 2022-0 2022- No [id number] 20mg Take 1 [facility] (PEPCID) 20 8- 10-20 tablet by it y of mg tablet 00:00: 00:00 mouth in [place] 00 :00 the Medical morning Branch and 1 tablet in the evening. Lorazepam 1 2022-0 Yes 1mg Q.[id number] Take 1 [facility] MG oral 7-23 [id number] tablet (1 S eybold Tablet 00:00: 3D mg total) - 00 by mouth Externa every 8 l hours as needed. Lorazepam 1 2022-0 Yes 1mg Q.[id number] Take 1 Luz Maria MG oral 7-23 [id number] tablet (1 S eybold Tablet 00:00: 3D mg total) - 00 by mouth Externa every 8 l hours as needed. iopamidol 2022- No [id number] 100mL 100 mL, Univers (ISOVUE 04-01 Intravenou ity o f 370-500 mL) 07:45: 06:58 s, ONCE, 1 [place] injection 00 :00 dose, On Medica l 100 mL Wed [place] 04/01/23 at 0245, Routine famotidine 2022- No 20mg 20 mg, Univ ers (PEPCID 04-01 Slow IV ity of (PF)) 05:45: 06:09 Push, [place] injection 00 :00 ONCE, 1 Medical 20 mg dose, On Branch 04/01/23 at 0045, VASILIY FENTanyl PF 2022- No 50ug 50 mcg, Un veronica (SUBLIMAZE 04-01 Slow IV ity o f (PF)) 05:38: 06:10 Push, [place] injection 00 :00 ONCE, 1 Medical 50 mcg dose, On Branch Thu04/01/23 at 0045, VASILIY NaCl 0.9% 2022-0 2022- No 1000mL at 999 Uni vers (NS) IV 04-01 mL/hr, ity of infusion 05:05: 06:30 Intravenou [place] 1,000 mL 00 :00 s, ONCE, 1 Medic al dose, On Thu04/01/23 at 0015, VASILIY ondansetron 2022-0 2022- No 4mg 4 mg, Slow Univers [...] Routine, IV line flushing ondansetron 3-0 Yes [id number] 4mg Take 1 [facility] 4 mg 7-19 tablet by ity of disintegrat 00:00: mouth [place] ing tablet 00 every 8 Medica l (eight) Branch hours as needed for Nausea and Vomiting (N/V). ondansetron 3-0 Yes [id number] 4mg Take 1 [facility] 4 mg 7-19 tablet by ity of disintegrat 00:00: mouth [place] ing tablet 00 every 8 Medica l (eight) Branch hours as needed for Nausea and Vomiting (N/V). ondansetron 2023-0 Yes [id number] 4mg Take 1 [facility] 4 mg 7-19 tablet by ity of disintegrat 00:00: mouth [place] ing tablet 00 every 8 Medica l (eight) Branch hours as needed for Nausea and Vomiting (N/V). ondansetron 2023-0 Yes [id number] 4mg Take 1 [facility] 4 mg 7-19 tablet by ity of disintegrat 00:00: mouth [place] ing tablet 00 every 8 Medica l (eight) Branch hours as needed for Nausea and Vomiting (N/V). ondansetron 2023-0 Yes [id number] 4mg Take 1 [facility] 4 mg 7-19 tablet by ity of disintegrat 00:00: mouth [place] ing tablet 00 every 8 Medica l (eight) Branch hours as needed for Nausea and Vomiting (N/V). ondansetron 2023-0 Yes [id number] 4mg Take 1 [facility] 4 mg 7-19 tablet by ity of disintegrat 00:00: mouth [place] ing tablet 00 every 8 Medica l (eight) Branch hours as needed for Nausea and Vomiting (N/V). ondansetron 3-0 Yes [id number] 4mg Take 1 [facility] 4 mg 7-19 tablet by ity of disintegrat 00:00: mouth [place] ing tablet 00 every 8 Medica l (eight) Branch hours as needed for Nausea and Vomiting (N/V). ondansetron 3-0 Yes [id number] 4mg Take 1 [facility] 4 mg 7-19 tablet by ity of disintegrat 00:00: mouth [place] ing tablet 00 every 8 Medica l (eight) Branch hours as needed for Nausea and Vomiting (N/V). ondansetron 3-0 Yes [id number] 4mg Take 1 [facility] 4 mg 7-19 tablet by ity of disintegrat 00:00: mouth [place] ing tablet 00 every 8 Medica l (eight) Branch hours as needed for Nausea and Vomiting (N/V). ondansetron 3-0 Yes [id number] 4mg Take 1 [facility] 4 mg 7-19 tablet by ity of disintegrat 00:00: mouth [place] ing tablet 00 every 8 Medica l (eight) Branch hours as needed for Nausea and Vomiting (N/V). ondansetron 3-0 Yes [id number] 4mg Take 1 [facility] 4 mg 7-19 tablet by ity of disintegrat 00:00: mouth [place] ing tablet 00 every 8 Medica l (eight) Branch hours as needed for Nausea and Vomiting (N/V). ondansetron 2023-0 Yes [id number] 4mg Take 1 [facility] 4 mg 7-19 tablet by ity of disintegrat 00:00: mouth [place] ing tablet 00 every 8 Medica l (eight) Branch hours as needed for Nausea and Vomiting (N/V). ondansetron 2023-0 Yes [id number] 4mg Take 1 [facility] 4 mg 7-19 tablet by ity of disintegrat 00:00: mouth [place] ing tablet 00 every 8 Medica l (eight) Branch hours as needed for Nausea and Vomiting (N/V). ondansetron Yes [id number] 4mg Take 1 [facility] 4 mg 7-19 tablet by ity of disintegrat 00:00: mouth [place] ing tablet 00 every 8 Medica l (eight) Branch hours as needed for Nausea and Vomiting (N/V). ondansetron Yes [id number] 4mg Take 1 [facility] 4 mg 7-19 tablet by ity of disintegrat 00:00: mouth [place] ing tablet 00 every 8 Medica l (eight) Branch hours as needed for Nausea and Vomiting (N/V). ondansetron Yes [id number] 4mg Take 1 [facility] 4 mg 7-19 [...] s mg 00 :00 dose, On Medical [facility] Branch 12/09/22 at 0215, VASILIY traMADoL 2022- No 50mg 50 mg, Univer s (ULTRAM) 12-09 Oral, ity of tablet 50 07:15: 06:33 ONCE, 1 [place] mg 00 :00 dose, On Medical [facility] Branch 12/09/22 at 0215, VASILIY iopamidol 2022- No [id number] 100mL 100 mL, Univers (ISOVUE 12-09 Intravenou ity o f 370-500 mL) 06:15: 06:15 s, ONCE, 1 [place] injection 00 :00 dose, On Medica l 100 mL Branch 12/09/22 at 0115, Routine ketorolac 2022- No 30mg 30 mg, Unive rs (TORADOL) 12-09 Slow IV ity of injection 06:15: 05:30 Push, [place] 30 mg 00 :00 ONCE, 1 Medical dose, On Branch 12/09/22 at 0115, VASILIY morpHINE (4 2022- No 4mg 4 mg, Slow Univers mg/mL) 12-09 IV Push, ity of injection 4 06:15: 05:30 ONCE, 1 [place] mg 00 :00 dose, On Medical [facility] Branch 12/09/22 at 0115, VASILIY NaCl 0.9% 2022- No 1000mL at 999 Uni vers (NS) bolus 12-09 mL/hr, ity of infusion 06:15: 06:33 1,000 mL, [place] 1,000 mL 00 :00 IV Medical Infusion, Branch ONCE, 1 dose, On Thu12/09/22 at 0115, VASILIY ondansetron 2022- No 8mg 8 mg, Slow [facility] (ZOFRAN 12-09 IV Push, ity of (PF)) 05:30: 05:30 ONCE, 1 [place] injection 8 00 :00 dose, On Medi amy mg Branch 12/09/22 at 0030, VASILIY traMADoL 50 2022-0 Yes [id number] 50mg Take 1 Univ ers mg tablet 3-28 tablet by ity o f 00:00: mouth [place] 00 every 6 Medical (six) Branch hours as needed (pain). Indication s: acute pain ondansetron 2022-0 Yes [id number] 1-2 Un veronica 4 mg tablet 3-28 tablets ity o f 00:00: every 8 [place] 00 hours as Medical needed for Branch nausea traMADoL 50 2022-0 Yes [id number] 50mg Take 1 Univ ers mg tablet 3-28 tablet by ity o f 00:00: mouth [place] 00 every 6 Medical (six) Branch hours as needed (pain). Indication s: acute pain ondansetron 2022-0 Yes [id number] 1-2 Un veronica 4 mg tablet 3-28 tablets ity o f 00:00: every 8 [place] 00 hours as Medical needed for Branch nausea traMADoL 50 3-0 Yes [id number] 50mg Take 1 Univ ers mg tablet 3-28 tablet by ity o f 00:00: mouth [place] 00 every 6 Medical (six) Branch hours as needed (pain). Indication s: acute pain ondansetron 3-0 Yes [id number] 1-2 Un veronica 4 mg tablet 3-28 tablets ity o f 00:00: every 8 [place] 00 hours as Medical needed for Branch nausea traMADoL 50 3-0 Yes [id number] 50mg Take 1 Univ ers mg tablet 3-28 tablet by ity o f 00:00: mouth [place] 00 every 6 Medical (six) Branch hours as needed (pain). Indication s: acute pain ondansetron 3-0 Yes [id number] 1-2 Un veronica 4 mg tablet 3-28 tablets ity o f 00:00: every 8 [place] 00 hours as Medical needed for Branch nausea traMADoL 50 3-0 Yes [id number] 50mg Take 1 Univ ers mg tablet 3-28 tablet by ity o f 00:00: mouth [place] 00 every 6 Medical (six) Branch hours as needed (pain). Indication s: acute pain ondansetron 3-0 Yes [id number] 1-2 Un veronica 4 mg tablet 3-28 tablets ity o f 00:00: every 8 [place] 00 hours as Medical needed for Branch nausea traMADoL 50 3-0 Yes [id number] 50mg Take 1 [facility] ers mg tablet 3-28 tablet by ity o f 00:00: mouth [place] 00 every 6 Medical (six) Branch hours as needed (pain). Indication s: acute pain ondansetron 3-0 Yes [id number] 1-2 Un veronica 4 mg tablet 3-28 tablets ity o f 00:00: every 8 [place] 00 hours as Medical needed for Branch nausea traMADoL 50 3-0 Yes [id number] 50mg Take 1 [facility] ers mg tablet 3-28 tablet by ity o f 00:00: mouth [place] 00 every 6 Medical (six) Branch hours as needed (pain). Indication s: acute pain ondansetron 3-0 Yes [id number] 1-2 Un [facility] 4 mg tablet 3-28 tablets ity o f 00:00: every 8 [place] 00 hours as Medical needed for Branch nausea traMADoL 50 2023-0 Yes [id number] 50mg Take 1 [facility] ers mg tablet 3-28 tablet by ity o f 00:00: mouth [place] 00 every 6 Medical (six) Branch hours as needed (pain). Indication s: acute pain ondansetron 3-0 Yes [id number] 1-2 Un [facility] 4 mg tablet 3-28 tablets ity o f 00:00: every 8 [place] 00 hours as Medical needed for Branch nausea traMADoL 50 2022-0 Yes [id number] 50mg Take 1 [facility] mg tablet 3-28 tablet by ity o f 00:00: mouth [place] 00 every 6 Medical (six) Branch hours as needed (pain). Indication s: acute pain ondansetron 3-0 Yes [id number] 1-2 [facility] 4 mg tablet 3-28 tablets ity o f 00:00: every 8 [place] 00 hours as Medical needed for Branch nausea traMADoL 50 3-0 Yes [id number] 50mg Take 1 [facility] mg tablet 3-28 tablet by ity o f 00:00: mouth [place] 00 every 6 Medical (six) Branch hours as needed (pain). Indication s: acute pain ondansetron 3-0 Yes [id number] 1-2 Un [facility] 4 mg tablet 3-28 tablets ity o f 00:00: every 8 [place] 00 hours as Medical needed for Branch nausea traMADoL 50 3-0 Yes [id number] 50mg Take 1 [facility] mg tablet 3-28 tablet by ity o f 00:00: mouth [place] 00 every 6 Medical (six) Branch hours as needed (pain). Indication s: acute pain ondansetron 3-0 Yes [id number] 1-2 Un [facility] 4 mg tablet 3-28 tablets ity o f 00:00: every 8 [place] 00 hours as Medical needed for Branch nausea traMADoL 50 3-0 Yes [id number] 50mg Take 1 [facility] mg tablet 3-28 tablet by ity o f 00:00: mouth [place] 00 every 6 Medical (six) Branch hours as needed (pain). Indication s: acute pain ondansetron 3-0 Yes [id number] 1-2 Un [facility] 4 mg tablet 3-28 tablets ity o f 00:00: every 8 [place] 00 hours as Medical needed for Branch nausea traMADoL 50 3-0 Yes [id number] 50mg Take 1 [facility] mg tablet 3-28 tablet by ity o f 00:00: mouth [place] 00 every 6 Medical (six) Branch hours as needed (pain). Indication s: acute pain ondansetron 3-0 Yes [id number] 1-2 [facility] 4 mg tablet 3-28 tablets ity o f 00:00: every 8 [place] 00 hours as Medical needed for Branch nausea traMADoL 50 3-0 Yes [id number] 50mg Take 1 [facility] mg tablet 3-28 tablet by ity o f 00:00: mouth [place] 00 every 6 Medical (six) Branch hours as needed (pain). Indication s: acute pain ondansetron 3-0 Yes [id number] 1-2 Un [facility] 4 mg tablet 3-28 tablets ity o f 00:00: every 8 [place] 00 hours as Medical needed for Branch nausea traMADoL 50 3-0 Yes [id number] 50mg Take 1 [facility] mg tablet 3-28 tablet by ity o f 00:00: mouth [place] 00 every 6 Medical (six) Branch hours as needed (pain). Indication s: acute pain ondansetron 3-0 Yes [id number] 1-2 Un [facility] 4 mg tablet 3-28 tablets ity o f 00:00: every 8 [place] 00 hours as Medical needed for Branch nausea traMADoL 50 3-0 Yes [id number] 50mg Take 1 [facility] mg tablet 3-28 tablet by ity o f 00:00: mouth [place] 00 every 6 Medical (six) Branch hours as needed (pain). Indication s: acute pain ondansetron 3-0 Yes [id number] 1-2 Un [facility] 4 mg tablet 3-28 tablets ity o f 00:00: every 8 [place] 00 hours as Medical needed for Branch nausea traMADoL 50 3-0 Yes [id number] 50mg Take 1 [facility] ers mg tablet 3-28 tablet by ity o f 00:00: mouth [place] 00 every 6 Medical (six) Branch hours as needed (pain). Indication s: acute pain ondansetron 2023-0 Yes [id number] 1-2 [facility] 4 mg tablet 3-28 tablets ity o f 00:00: every 8 [place] 00 hours as Medical needed for Branch nausea traMADoL 50 3-0 Yes [id number] 50mg Take 1 [facility] ers mg tablet 3-28 tablet by ity o f 00:00: mouth [place] 00 every 6 Medical (six) Branch hours as needed (pain). Indication s: acute pain ondansetron 2022-0 Yes [id number] 1-2 [facility] 4 mg tablet 3-28 tablets ity o f 00:00: every 8 [place] 00 hours as Medical needed for Branch nausea traMADoL 50 2022-0 Yes [id number] 50mg Take 1 [facility] ers mg tablet 3-28 tablet by ity o f 00:00: mouth [place] 00 every 6 Medical (six) Branch hours as needed (pain). Indication s: acute pain ondansetron 2022-0 Yes [id number] 1-2 [facility] 4 mg tablet 3-28 tablets ity o f 00:00: every 8 [place] 00 hours as Medical needed for Branch nausea predniSONE 2022-0 2022- No [id number] 40mg Take 2 [facility] 20 mg 3-28 04-05 tablets by ity of tablet 00:00: 04:59 mouth in [place] 00 :00 the Medical morning Branch for 7 days. iopamidol 2022- No [id number] 100mL 100 mL, [facility] (ISOVUE 11-25 Intravenou ity o f 370-500 mL) 06:15: 06:15 s, ONCE, 1 [place] injection 00 :00 dose, On Medica l 100 mL Thu11/25/22 at 0115, Routine NaCl 0.9% 2022- No 1000mL at 999 Uni vers (NS) bolus 11-25 mL/hr, ity of infusion 06:00: 07:00 1,000 mL, [place] 1,000 mL 00 :00 IV Medical Infusion, Branch ONCE, 1 dose, On Thu11/25/22 at 0100, STAT FENTanyl PF 2022- No 50ug 50 mcg, [...] 00 :00 dose, On Medi amy mg Tue Branch 11/25/22 at 0000, VASILIY Pancrelipas 2022-0 Yes Luz Maria e, 1-30 [facility] Lip-Prot-Am 00:00: - yl, (Creon) 00 Externa [id number] l units oral Cap DR Particles Pancrelipas 2022-0 Yes Luz Maria e, 1-30 [facility] Lip-Prot-Am 00:00: - yl, (Creon) 00 Externa [id number] l units oral Cap [address] Particles lipase-prot 2022- No [id number] 1{capsu Take 1 [facility] ease-amylas 1-30 05-01 le} capsule by i ty of e (CREON) 00:00: 04:59 mouth in [place] 12,000-38,0 00 :00 the Medical 00 -60,000 morning Branch unit and 1 capsule capsule at noon and 1 capsule in the evening. Take with meals. Do all this for 90 days. lipase-prot 2022- No [id number] 1{capsu Take 1 [facility] ease-amylas 1-30 05-01 le} capsule by i ty of e (CREON) 00:00: 04:59 mouth in [place] 12,000-38,0 00 :00 the Medical 00 -60,000 morning Branch unit and 1 capsule capsule at noon and 1 capsule in the evening. Take with meals. Do all this for 90 days. lipase-prot 2022- No [id number] 1{capsu Take 1 [facility] ease-amylas 1-30 05-01 le} capsule by i ty of e (CREON) 00:00: 04:59 mouth in [place] 12,000-38,0 00 :00 the Medical 00 -60,000 morning Branch unit and 1 capsule capsule at noon and 1 capsule in the evening. Take with meals. Do all this for 90 days. lipase-prot 2022- No [id number] 1{capsu Take 1 [facility] ease-amylas 1-30 05-01 le} capsule by i ty of e (CREON) 00:00: 04:59 mouth in [place] 12,000-38,0 00 :00 the Medical 00 -60,000 morning Branch unit and 1 capsule capsule at noon and 1 capsule in the evening. Take with meals. Do all this for 90 days. lipase-prot 2023-0 Yes 2{capsu 2 capsule, [facility] ease-amylas 1- le} Oral, TID ity of e (CREON) 23:00: MEALS, [place] 12,000-38,0 00 First dose Me dical 00 -60,000 on [place] [facility] unit 10/12/22 at capsule 2 1700, capsule Until Discontinu ed, Routine lisinopriL 2023-0 Yes 10mg Take 10 mg U nivers 10 mg 1-29 by mouth ity of tablet 17:56: in the [place] 15 morning. Medical Branch lisinopriL 2023-0 Yes 10mg Take 10 mg U nivers 10 mg 1-29 by mouth ity of tablet 17:56: in the [place] 15 morning. Medical Branch lisinopriL 2023-0 Yes 10mg Take 10 mg U nivers 10 mg 1-29 by mouth ity of tablet 17:56: in the [place] 15 morning. Medical Branch lisinopriL 2023-0 Yes 10mg Take 10 mg U nivers 10 mg 1-29 by mouth ity of tablet 17:56: in the [place] 15 morning. Medical Branch lisinopriL 2023-0 Yes 10mg Take 10 mg U nivers 10 mg 1-29 by mouth ity of tablet 17:56: in the [place] [address] morning. Medical Branch lisinopriL 2023-0 Yes 10mg Take 10 mg U nivers 10 mg 1-29 by mouth ity of tablet 17:56: in the [place] 15 morning. Medical Branch lisinopriL 2023-0 Yes 10mg Take 10 mg U nivers 10 mg 1-29 by mouth ity of tablet 17:56: in the [place] 15 morning. Medical Branch lisinopriL 2023-0 Yes 10mg Take 10 mg U nivers 10 mg 1-29 by mouth ity of tablet 17:56: in the [place] 15 morning. Medical Branch lisinopriL 2023-0 Yes 10mg Take 10 mg U nivers 10 mg 1-29 by mouth ity of tablet 17:56: in the [place] 15 morning. Medical Branch lisinopriL 2023-0 Yes 10mg Take 10 mg U nivers 10 mg 1-29 by mouth ity of tablet 17:56: in the [place] 15 morning. Medical Branch lisinopriL 2023-0 Yes 10mg Take 10 mg U nivers 10 mg 1-29 by mouth ity of tablet 17:56: in the [place] 15 morning. Medical Branch lisinopriL 2023-0 Yes 10mg Take 10 mg U nivers 10 mg 1-29 by mouth ity of tablet 17:56: in the [place] 15 morning. Medical Branch lisinopriL 2023-0 Yes 10mg Take 10 mg U nivers 10 mg 1-29 by mouth ity of tablet 17:56: in the [place] 15 morning. Medical Branch lisinopriL 2023-0 Yes 10mg Take 10 mg U nivers 10 mg 1-29 by mouth ity of tablet 17:56: in the [place] 15 morning. Medical Branch lisinopriL 2023-0 Yes 10mg Take 10 mg U nivers 10 mg 1-29 by mouth ity of tablet 17:56: in the [place] 15 morning. Medical Branch lisinopriL 2023-0 Yes 10mg Take 10 mg U nivers 10 mg 1-29 by mouth ity of tablet 17:56: in the [place] 15 morning. Medical Branch lisinopriL 2023-0 Yes 10mg Take 10 mg U nivers 10 mg 1-29 by mouth ity of tablet 17:56: in the [place] 15 morning. Medical Branch lisinopriL 2023-0 Yes 10mg Take 10 mg U nivers 10 mg 1-29 by mouth ity of tablet 17:56: in the [place] 15 morning. Medical Branch lisinopriL 2023-0 Yes 10mg Take 10 mg U nivers 10 mg 1-29 by mouth ity of tablet 17:56: in the [place] 15 morning. Medical Branch lisinopriL 2023-0 Yes 10mg Take 10 mg U nivers 10 mg 1-29 by mouth ity of tablet 17:56: in the [place] 15 morning. Medical Branch lisinopriL 2023-0 Yes 10mg Take 10 mg U nivers 10 mg 1-29 by mouth ity of tablet 17:56: in the [place] 15 morning. Medical Branch lisinopriL 2023-0 Yes 10mg Take 10 mg U nivers 10 mg 1-29 by mouth ity of tablet 17:56: in the [place] 15 morning. Medical Branch lisinopriL 2023-0 Yes 10mg Take 10 mg U nivers 10 mg 1-29 by mouth ity of tablet 17:56: in the [place] 15 morning. Medical Branch meloxicam Yes 7.5mg 7.5 mg, Univ ers (MOBIC) 10-12 Oral, ity of tablet 7.5 17:15: DAILY, [place] mg 00 First dose Medical on [place] Branch 10/12/22 at 1115, Until Discontinu ed, Routine omeprazole Yes 20mg 20 mg, Unive rs (PRILOSEC) 10-12 Oral, ity of capsule 20 15:00: DAILY, [place] mg 00 First dose Medical on [facility] 10/12/22 at 0900, Until Discontinu ed, Routine Pantoprazol Yes Luz Maria e Sodium 40 -29 [facility] MG oral 00:00: - Tablet 00 Externa Delayed l Response Pantoprazol Yes Luz Maria e Sodium 40 -29 [facility] MG oral 00:00: - Tablet 00 Externa Delayed l Response pantoprazol 2022- No [id number] 40mg Take 1 Univers e 40 mg EC 10-1230 tablet by ity of tablet 00:00: 04:59 mouth in [place] 00 :00 the [facility] for 90 days. lipase-prot 2022- No [id number] 2{capsu Take 2 Univers ease-amylas 10-12 le} capsules ity of e 00:00: 04:59 by mouth [place] 12,000-38,0 00 :00 in the Medica l 00 -60,000 morning Branch unit and 2 capsule capsules at noon and 2 capsules in the evening. Take with meals. Do all this for 90 days. Do not crush or chew. pantoprazol 2022- No [id number] 40mg Take 1 Univers e 40 mg EC 10-12-30 tablet by ity of tablet 00:00: 04:59 mouth in [place] 00 :00 the [facility] for 90 days. pantoprazol 0 2022- No [id number] 40mg Take 1 Univers e 40 mg EC 10-12-30 tablet by ity of tablet 00:00: 04:59 mouth in [place] 00 :00 the [facility] for 90 days. pantoprazol 2022- No [id number] 40mg Take 1 Univers e 40 mg EC 10-12 tablet by ity of tablet 00:00: 04:59 mouth in [place] 00 :00 the Medical morning Branch for 90 days. pantoprazol 2022- No [id number] 40mg Take 1 Univers e 40 mg EC 10-12 tablet by ity of tablet 00:00: 04:59 mouth in [place] 00 :00 the Medical morning Branch for 90 days. meloxicam 2022- No [id number] 7.5mg Take 1 [facility] 7.5 mg 10-12 tablet by ity of tablet 00:00: 05:59 mouth [place] 00 :00 daily as Medical needed for Branch Pain (scale 7-10) for up to 14 days. meloxicam 2022- No [id number] 7.5mg Take 1 Univers 7.5 mg 10-12 [...] 2022- No 1{tbl} 1 tablet, Univers -acetaminop 1-28 01-30 Oral, ity of hen (NORCO 19:35: 19:34 [...] 00 :00 dose, On Medi amy mg [facility] Branch 10/11/22 at 1015, VASILIY morpHINE (4 2022- No 4mg 4 mg, Slow Univers mg/mL) 10-11 IV Push, ity of injection 4 16:15: 16:14 ONCE, 1 [place] mg 00 :00 dose, On Medical [facility] Branch 10/11/22 at 1015, STAT iopamidol 2022- No [id number] 120mL 120 mL, Univers (ISOVUE 10-11 Intravenou ity o f 370-500 mL) 15:45: 14:43 s, ONCE, 1 [place] injection 00 :00 dose, On Medica l 120 mL [facility] Branch 10/11/22 at 0945, Routine FENTanyl PF 2022- No 50ug 50 mcg, Un veronica (SUBLIMAZE 10-09 Slow IV ity o f (PF)) 08:30: 07:23 Push, [place] injection 00 :00 ONCE, 1 Medical 50 mcg dose, On Branch [place] 10/09/22 at 0230, Routine iopamidol 2022- No [id number] 100mL 100 mL, Univers (ISOVUE 10-09 Intravenou [...] [place] 10/09/22 at 0015, Routine ondansetron Yes [id number] 4mg Take 1 [facility] (ZOFRAN) 4 10-09 tablet by ity of mg tablet 00:00: mouth [place] 00 every 8 Medical (eight) Branch hours as needed for Nausea and Vomiting (N/V). traMADoL Yes [id number] 50mg Take 1 [facility] (ULTRAM) 50 10-09 tablet by ity of mg tablet 00:00: mouth [place] 00 every 6 Medical (six) Branch hours as needed for Pain (scale 7-10). Indication s: acute pain ondansetron No [id number] 4mg Take 1 [facility] (ZOFRAN) 4 10-09 [...] (scale 7-10). Indication s: acute pain ketorolac 2021-09 No 30mg 30 mg, Unive rs (TORADOL) 10-21 Intramuscu ity of injection 17:15: 16:35 lar, ONCE, [place] 30 mg 00 :00 1 dose, On Medical Wed Branch 08/20/22 at 1115, VASLIIY Amlodipine 2021-09 Yes Luz Maria Besylate 10 0-26 [facility] MG oral 00:00: - Tablet 00 Externa l Amlodipine 2021-09 Yes Luz Maria Besylate 10 0-26 [facility] MG oral 00:00: - Tablet 00 Externa l TAKE 1 2021-09 No TABLET 0-26 DAILY. 00:00: 00 morpHINE (4 2021- No 4mg 4 mg, Slow Univers mg/mL) 06-09 IV Push, ity of injection 4 13:15: 12:54 ONCE, 1 [place] mg 00 :00 dose, On Medical [facility] Branch 06/09/22 at 0815, VASILIY ketorolac 2021- No 30mg 30 mg, Unive rs (TORADOL) 06-09 Slow IV ity of injection 13:15: 12:55 Push, [place] 30 mg 00 :00 ONCE, 1 Medical dose, On Branch [facility] 06/09/22 at 0815, VASILIY iopamidol 2021- No [id number] 60mL 60 mL, Univers (ISOVUE 06-09 Intravenou ity o f 370-500 mL) 13:07: 13:08 s, ONCE, 1 [place] injection 00 :00 dose, On Medica l 60 mL [facility] 06/09/22 at 0815, Routine ondansetron 2021- No 4mg 4 mg, Slow Univers (ZOFRAN 06-09 IV Push, ity of (PF)) 12:30: 12:54 ONCE, 1 [place] injection 4 00 :00 dose, On Medi amy mg [facility] 06/09/22 at 0730, VASILIY dexamethaso 2021- No 10mg 10 mg, Uni vers ne sod phos 06-09 Slow IV ity of PF 12:30: 12:55 Push, [place] injection 00 :00 ONCE, 1 Medical 10 mg dose, On Branch [facility] 06/09/22 at 0730, 1 mL traMADoL 50 Yes [id number] 50mg Take 1 Univ ers mg tablet 06-09 tablet by ity o f 00:00: mouth [place] 00 every 6 Medical (six) Branch hours as needed (pain). Indication s: acute pain lidocaine 5 0 Yes [id number] Apply one Univers % (700 9-26 patch [...] s: acute pain lidocaine 5 2021-0 Yes [id number] Apply one Univers % (700 9-26 patch [...] needed (pain). Indication s: acute pain lidocaine 0 Yes [id number] Apply one [facility] % (700 9-26 patch [...] s: acute pain lidocaine 5 2021-0 Yes [id number] Apply one Univers % (700 9-26 patch to ity of mg/patch) 00:00: most [place] patch 00 painful Medical area up to Branch 12 hours a day as needed for pain. PHARMACIST : dispense one box traMADoL 50 2021-0 3- No [id number] 50mg Take 1 Uni vers mg tablet 9-09 10-28 tablet by ity of 00:00: 00:00 mouth [place] 00 :00 every 6 Medical (six) Branch hours as needed (pain). Indication s: acute pain lidocaine 5 2021-0 2022- No [id number] Apply one Univers % (700 9-26 -28 patch to ity of mg/patch) 00:00: 00:00 most [place] patch 00 :00 painful Medical area up to Branch 12 hours a day as needed for pain. PHARMACIST : dispense one box predniSONE 2021-0 2021- No [id number] 40mg Take 2 Univers 20 mg 9-26 10-04 tablets by ity of tablet 00:00: 04:59 mouth in [place] 00 :00 the Medical morning Branch for 7 days. Dose 2021-0 No Unknown 5-23 00:00: 00 Dose 2021-0 No Unknown 5-23 00:00: 00 lisinopriL 2021-0 Yes 20mg 20 mg, Unive rs (PRINIVIL,Z 2-18 Oral, QHS, it y of ESTRIL) 03:00: First dose [place] tablet 20 00 (after Medical mg last Branch modificati on) on [facility] 10/31/21 at 2100, Until Discontinu ed, Routine lisinopriL 2021-2021- No [id number] 20mg Take 1 [facility] 20 mg 2-18 03-21 tablet by ity of tablet 00:00: 04:59 mouth at [place] 00 :00 bedtime Medical for 30 Branch days. lisinopriL 2021-2021- No [id number] 20mg Take 1 [facility] 20 mg 2-18 03-21 tablet by ity of tablet 00:00: 04:59 mouth at [place] 00 :00 bedtime Medical for 30 Branch days. lactated 2021-0 Yes 1000mL at 75 Univer s ringers IV 2-17 mL/hr, ity of infusion 19:00: 1,000 mL, [place] 1,000 mL 00 IV Medical Infusion, Branch CONTINUOUS , Starting on [facility] 10/31/21 at 1300, Until Discontinu ed, Routine amLODIPine 0 Yes 10mg 10 mg, Unive rs (NORVASC) 2-17 Oral, ity of tablet 10 15:00: DAILY, [place] mg 00 First dose Medical on [facility] Branch 10/31/21 at 0900, Until Discontinu ed, Routine enoxaparin 2021-0 Yes 40mg 40 mg, Unive rs (LOVENOX) 2-17 Subcutaneo ity of injection 15:00: us, DAILY, [place] 40 mg 00 First dose Medical on [facility] Branch 10/31/21 at 0900, Until Discontinu ed, Routine lactated 2021- No 1000mL at 150 Univ ers ringers IV 10-31-17 mL/hr, ity of infusion 07:00: 18:45 1,000 mL, [place] 1,000 mL 00 :24 IV Medical Infusion, Branch CONTINUOUS , Starting on [place] 10/31/21 at 0100, Until [place] 10/31/21 at 1245, Routine lactated No 1000mL at 75 Unive rs ringers IV 10-3117 mL/hr, ity of infusion 01:00: 06:52 1,000 mL, [place] 1,000 mL 00 :16 IV Medical Infusion, Branch CONTINUOUS , Starting on Thu10/30/21 at 1900, Until [place] 10/31/21 at 0052, Routine morpHINE 2021- No 4mg 4 mg, Slow Un veronica injection 4 10-31 IV Push, ity of mg 00:43: 00:42 Q4HPRN, [place] 35 :35 Starting Medical on Thu Branch 10/30/21 at 1843, Until [place] 10/31/21 at 1842, Routine, Pain (scale 7-10) HYDROcodone 2021- No 1{tbl} 1 tablet, Univers -acetaminop 10-3119 Oral, ity of hen (NORCO 00:43: 00:42 Q6HPRN, [place] 5) 5-325 mg 32 :32 Starting Medi amy tablet 1 on Thu Branch tablet 10/30/21 at 1843, Until Thu11/01/21 at 1842, Routine, Pain (scale 4-6) acetaminoph Yes 650mg 650 mg, Un veronica en 17 Oral, ity of (TYLENOL) 00:43: Q6HPRN, [place] tablet 650 22 Starting Medic al mg on Thu Branch 10/30/21 at 1843, Until Discontinu ed, Routine, Pain (scale 1-3) ondansetron 2021- No 4mg 4 mg, Slow Univers (ZOFRAN 10-30 IV Push, ity of (PF)) 21:15: 20:28 ONCE, 1 [place] injection 4 00 :00 dose, On Medi amy mg Thu Branch 10/30/21 at 1515, VASILIY morpHINE 2- No 4mg 4 mg, Slow Un veronica injection 4 10-30 IV Push, ity of mg 21:15: 20:29 ONCE, 1 [place] 00 :00 dose, On Medical Wed Branch 10/30/21 at 1515, STAT NaCl 0.9% 2021- No 1000mL at 999 Uni vers (NS) bolus 10-30 mL/hr, ity of infusion 21:15: 20:29 1,000 mL, [place] 1,000 mL 00 :00 IV Medical Infusion, Branch ONCE, 1 dose, On 10/30/21 at 1515, VASILIY iopamidol 2021-0 2021- No [id number] 100mL 100 mL, Univers (ISOVUE 10-30 Intravenou [...] mg 0-13 tablet 00:00: 00 NaCl 0.9% 2020-0 2020- No 1000mL at [...] [place] 05/23/21 at 2200, STAT NaCl 0.9% 2020- No 1000mL at 999 Uni vers (NS) bolus 05-24 09-10 mL/hr, ity of infusion 03:00: 03:00 1,000 mL, [place] 1,000 mL 00 :00 IV Medical Piggyback, Branch ONCE, 1 dose, [place] 05/23/21 at 2200, STAT NaCl 0.9% 2020- No 500mL at [...] 10mg 10 mg, Uni vers ne 04-02 07-20 Intramuscu ity of (DECADRON 03:30: 02:47 [...] Restricted medication : EMERGENCY ROOM, ibuprofen Yes [id number] 800mg Take 1 [facility] 800 mg 7-04 tablet by ity of tablet 00:00: mouth [place] 00 every 8 Medical (eight) Branch hours as needed for Pain (scale 4-6). ibuprofen 2021-0 Yes [id number] 800mg Take 1 [facility] 800 mg 7-04 tablet by ity of tablet 00:00: mouth [place] 00 every 8 Medical (eight) Branch hours as needed for Pain (scale 4-6). ibuprofen 2020-0 Yes [id number] 800mg Take 1 [facility] 800 mg 7-04 tablet by ity of tablet 00:00: mouth [place] 00 every 8 Medical (eight) Branch hours as needed for Pain (scale 4-6). ibuprofen 2020-0 Yes [id number] 800mg Take 1 [facility] 800 mg 7-04 tablet by ity of tablet 00:00: mouth [place] 00 every 8 Medical (eight) Branch hours as needed for Pain (scale 4-6). ibuprofen 2020-0 Yes [id number] 800mg Take 1 [facility] 800 mg 7-04 tablet by ity of tablet 00:00: mouth [place] 00 every 8 Medical (eight) Branch hours as needed for Pain (scale 4-6). ibuprofen 2020-0 Yes [id number] 800mg Take 1 [facility] 800 mg 7-04 tablet by ity of tablet 00:00: mouth [place] 00 every 8 Medical (eight) Branch hours as needed for Pain (scale 4-6). ibuprofen 2020-0 202- No [id number] 800mg Take 1 [facility] 800 mg 7-04 09-09 tablet by ity of tablet 00:00: 00:00 mouth [place] 00 :00 every 8 Medical (eight) Branch hours as needed for Pain (scale 4-6). ibuprofen 2020-0 2021- No [id number] 800mg Take 1 [facility] 800 mg 7-04 09-09 tablet by ity of tablet 00:00: 00:00 mouth [place] 00 :00 every 8 Medical (eight) Branch hours as needed for Pain (scale 4-6). acetaminoph 2020- No [id number] 1{tbl} Take 1 U nivers en-codeine - 07-12 tablet by ity of 300-30 mg 00:00: [...] 11/14/20 at Branch 2300, Routine benzonatate Yes [id number] 100mg Take 1 [facility] 100 mg 3-03 capsule by ity of capsule 00:00: mouth 3 00 (three) Medical times Branch daily as needed for Cough. benzonatate Yes [id number] 100mg Take 1 [facility] 100 mg 3-03 capsule by ity of capsule 00:00: mouth 3 (three) Medical times Branch daily as needed for Cough. benzonatate Yes [id number] 100mg Take 1 [facility] 100 mg 3-03 capsule by ity of capsule 00:00: mouth 3 (three) Medical times Branch daily as needed for Cough. benzonatate Yes [id number] 100mg Take 1 [facility] 100 mg 3-03 capsule by ity of capsule 00:00: mouth 3 00 (three) Medical times Branch daily as needed for Cough. benzonatate Yes [id number] 100mg Take 1 [facility] 100 mg 3-03 capsule by ity of capsule 00:00: mouth 3 00 (three) Medical times Branch daily as needed for Cough. benzonatate 0 Yes [id number] 100mg Take 1 [facility] 100 mg 3-03 capsule by ity of capsule 00:00: mouth 3 00 (three) Medical times Branch daily as needed for Cough. Dose 2020-0 No Unknown 3-03 00:00: 00 Dose 2020-0 No Unknown 3-03 00:00: 00 Dose 2020-0 No Unknown 3-03 00:00: 00 Dose 2020-0 No Unknown 3-03 00:00: 00 benzonatate 2020-0 2020- No [id number] 100mg Take 1 [facility] 100 mg 3-03 09-09 capsule by ity of capsule 00:00: 00:00 mouth 3 [place] 00 :00 (three) Medical times Branch daily as needed for Cough. benzonatate 2020-0 2020- No [id number] 100mg Take 1 [facility] 100 mg 3-03 09-09 capsule by ity of capsule 00:00: 00:00 mouth 3 [place] 00 :00 (three) Medical times Branch daily as needed for Cough. diphenhydrA 2020- No 25mg 25 mg, Uni vers MINE 09-30 Slow IV ity of (BENADRYL) 16:00: 15:17 Push, [place] injection 00 :00 ONCE, 1 Medical 25 mg dose, [place] [facility] 09/30/20 at 1000, STAT metoclopram 2020- No 10mg 10 mg, Uni vers jerilyn HCl 09-30 Slow IV ity of (REGLAN) 16:00: 15:17 Push, [place] injection 00 :00 ONCE, 1 Medical 10 mg dose, [place] [facility] 09/30/20 at 1000, VASILIY NaCl 0.9% 2020- No 1000mL at 999 Uni vers (NS) bolus 09-30 mL/hr, ity of infusion 15:00: 16:45 1,000 mL, [place] 1,000 mL 00 :00 IV Medical Infusion, Branch ONCE, 1 dose, [place] 09/30/20 at 0900, VASILIY amLODIPine Yes [id number] 10mg Take 1 Univers (NORVASC) 1-17 tablet by ity o f 10 mg 00:00: mouth [place] tablet 00 daily. Medical Branch amLODIPine Yes [id number] 10mg Take 1 Univers (NORVASC) 1-17 tablet by ity o f 10 mg 00:00: mouth [place] tablet 00 daily. Medical Branch amLODIPine Yes [id number] 10mg Take 1 [facility] (NORVASC) 1-17 tablet by ity o f 10 mg 00:00: mouth [place] tablet 00 daily. Medical Branch amLODIPine Yes [id number] 10mg Take 1 [facility] (NORVASC) 1-17 tablet by ity o f 10 mg 00:00: mouth [place] tablet 00 daily. [facility] amLODIPine Yes [id number] 10mg Take 1 Univers (NORVASC) 1-17 tablet by ity o f 10 mg 00:00: mouth [place] tablet 00 daily. [facility] amLODIPine Yes [id number] 10mg Take 1 [facility] (NORVASC) 1-17 tablet by ity o f 10 mg 00:00: mouth [place] tablet 00 daily. [facility] amLODIPine Yes [id number] 10mg Take 1 [facility] (NORVASC) 1-17 tablet by ity o f 10 mg 00:00: mouth [place] tablet 00 daily. [facility] amLODIPine Yes [id number] 10mg Take 1 [facility] (NORVASC) 1-17 tablet by ity o f 10 mg 00:00: mouth [place] tablet 00 daily. [facility] amLODIPine Yes [id number] 10mg Take 1 [facility] (NORVASC) 1-17 tablet by ity o f 10 mg 00:00: mouth [place] tablet 00 daily. [facility] amLODIPine Yes [id number] 10mg Take 1 [facility] (NORVASC) 1-17 tablet by ity o f 10 mg 00:00: mouth [place] tablet 00 daily. [facility] amLODIPine Yes [id number] 10mg Take 1 [facility] (NORVASC) 1-17 tablet by ity o f 10 mg 00:00: mouth [place] tablet 00 daily. [facility] amLODIPine Yes [id number] 10mg Take 1 [facility] (NORVASC) 1-17 tablet by ity o f 10 mg 00:00: mouth [place] tablet 00 daily. [facility] lisinopriL Yes [id number] 10mg Take 1 [facility] 10 mg 1-17 tablet by ity of tablet 00:00: mouth at [place] 00 bedtime. [facility] amLODIPine Yes [id number] 10mg Take 1 [facility] (NORVASC) 1-17 tablet by ity o f 10 mg 00:00: mouth [place] tablet 00 daily. [facility] lisinopriL Yes [id number] 10mg Take 1 [facility] 10 mg 1-17 tablet by ity of tablet 00:00: mouth at [place] 00 bedtime. [facility] amLODIPine Yes [id number] 10mg Take 1 [facility] (NORVASC) 1-17 tablet by ity o f 10 mg 00:00: mouth [place] tablet 00 daily. [facility] lisinopriL Yes [id number] 10mg Take 1 [facility] 10 mg 1-17 tablet by ity of tablet 00:00: mouth at [place] 00 bedtime. [facility] amLODIPine Yes [id number] 10mg Take 1 [facility] (NORVASC) 1-17 tablet by ity o f 10 mg 00:00: mouth [place] tablet 00 daily. [facility] lisinopriL 0 Yes [id number] 10mg Take 1 [facility] 10 mg 1-17 tablet by ity of tablet 00:00: mouth at [place] 00 bedtime. [facility] amLODIPine 0 Yes [id number] 10mg Take 1 [facility] (NORVASC) 1-17 tablet by ity o f 10 mg 00:00: mouth [place] tablet 00 daily. [facility] lisinopriL 0 Yes [id number] 10mg Take 1 [facility] 10 mg 1-17 tablet by ity of tablet 00:00: mouth at [place] 00 bedtime. [facility] amLODIPine Yes [id number] 10mg Take 1 [facility] (NORVASC) 1-17 tablet by ity o f 10 mg 00:00: mouth [place] tablet 00 daily. [facility] lisinopriL Yes [id number] 10mg Take 1 [facility] 10 mg 1-17 tablet by ity of tablet 00:00: mouth at [place] 00 bedtime. [facility] amLODIPine Yes [id number] 10mg Take 1 [facility] (NORVASC) 1-17 tablet by ity o f 10 mg 00:00: mouth [place] tablet 00 daily. [facility] lisinopriL Yes [id number] 10mg Take 1 [facility] 10 mg 1-17 tablet by ity of tablet 00:00: mouth at [place] 00 bedtime. [facility] amLODIPine Yes [id number] 10mg Take 1 [facility] (NORVASC) 1-17 tablet by ity o f 10 mg 00:00: mouth [place] tablet 00 daily. [facility] lisinopriL Yes [id number] 10mg Take 1 [facility] 10 mg 1-17 tablet by ity of tablet 00:00: mouth at [place] 00 bedtime. [facility] amLODIPine Yes [id number] 10mg Take 1 [facility] (NORVASC) 1-17 tablet by ity o f 10 mg 00:00: mouth [place] tablet 00 daily. [facility] lisinopriL 0 Yes [id number] 10mg Take 1 [facility] 10 mg 1-17 tablet by ity of tablet 00:00: mouth at [place] 00 bedtime. [facility] amLODIPine Yes [id number] 10mg Take 1 [facility] (NORVASC) 1-17 tablet by ity o f 10 mg 00:00: mouth [place] tablet 00 daily. [facility] lisinopriL Yes [id number] 10mg Take 1 [facility] 10 mg 1-17 tablet by ity of tablet 00:00: mouth at [place] 00 bedtime. [facility] amLODIPine Yes [id number] 10mg Take 1 [facility] (NORVASC) 1-17 tablet by ity o f 10 mg 00:00: mouth [place] tablet 00 daily. [facility] amLODIPine Yes [id number] 10mg Take 1 [facility] (NORVASC) 1-17 tablet by ity o f 10 mg 00:00: mouth [place] tablet 00 daily. [facility] amLODIPine Yes [id number] 10mg Take 1 [facility] (NORVASC) 1-17 tablet by ity o f 10 mg 00:00: mouth [place] tablet 00 daily. [facility] amLODIPine Yes [id number] 10mg Take 1 [facility] (NORVASC) 1-17 tablet by ity o f 10 mg 00:00: mouth [place] tablet 00 daily. [facility] lisinopriL Yes [id number] 10mg Take 1 [facility] 10 mg 1-17 tablet by ity of tablet 00:00: mouth at [place] 00 bedtime. [facility] amLODIPine Yes [id number] 10mg Take 1 [facility] (NORVASC) 1-17 tablet by ity o f 10 mg 00:00: mouth [place] tablet 00 daily. [facility] amLODIPine Yes [id number] 10mg Take 1 [facility] (NORVASC) 1-17 tablet by ity o f 10 mg 00:00: mouth [place] tablet 00 daily. [facility] amLODIPine Yes [id number] 10mg Take 1 [facility] (NORVASC) 1-17 tablet by ity o f 10 mg 00:00: mouth [place] tablet 00 daily. [facility] amLODIPine Yes [id number] 10mg Take 1 [facility] (NORVASC) 1-17 tablet by ity o f 10 mg 00:00: mouth [place] tablet 00 daily. [facility] amLODIPine Yes [id number] 10mg Take 1 [facility] (NORVASC) 1-17 tablet by ity o f 10 mg 00:00: mouth [place] tablet 00 daily. [facility] amLODIPine Yes [id number] 10mg Take 1 [facility] (NORVASC) 1-17 tablet by ity o f 10 mg 00:00: mouth [place] tablet 00 daily. [facility] lisinopriL Yes [id number] 10mg Take 1 [facility] 10 mg 1-17 tablet by ity of tablet 00:00: mouth at [place] 00 bedtime. [facility] amLODIPine Yes [id number] 10mg Take 1 [facility] (NORVASC) 1-17 tablet by ity o f 10 mg 00:00: mouth [place] tablet 00 daily. [facility] amLODIPine Yes [id number] 10mg Take 1 [facility] (NORVASC) 1-17 tablet by ity o f 10 mg 00:00: mouth [place] tablet 00 daily. [facility] amLODIPine Yes [id number] 10mg Take 1 [facility] (NORVASC) 1-17 tablet by ity o f 10 mg 00:00: mouth [place] tablet 00 daily. [facility] amLODIPine Yes [id number] 10mg Take 1 [facility] (NORVASC) 1-17 tablet by ity o f 10 mg 00:00: mouth [place] tablet 00 daily. [facility] amLODIPine Yes [id number] 10mg Take 1 [facility] (NORVASC) 1-17 tablet by ity o f 10 mg 00:00: mouth [place] tablet 00 daily. [facility] amLODIPine Yes [id number] 10mg Take 1 [facility] (NORVASC) 1-17 tablet by ity o f 10 mg 00:00: mouth [place] tablet 00 daily. [facility] amLODIPine Yes [id number] 10mg Take 1 [facility] (NORVASC) 1-17 tablet by ity o f 10 mg 00:00: mouth [place] tablet 00 daily. [facility] amLODIPine Yes [id number] 10mg Take 1 [facility] (NORVASC) 1-17 tablet by ity o f 10 mg 00:00: mouth [place] tablet 00 daily. [facility] amLODIPine Yes [id number] 10mg Take 1 [facility] (NORVASC) 1-17 tablet by ity o f 10 mg 00:00: mouth [place] tablet 00 daily. [facility] lisinopriL Yes [id number] 10mg Take 1 [facility] 10 mg 1-17 tablet by ity of tablet 00:00: mouth at [place] 00 bedtime. [facility] amLODIPine Yes [id number] 10mg Take 1 [facility] (NORVASC) 1-17 tablet by ity o f 10 mg 00:00: mouth [place] tablet 00 daily. [facility] amLODIPine Yes [id number] 10mg Take 1 [facility] (NORVASC) 1-17 tablet by ity o f 10 mg 00:00: mouth [place] tablet 00 daily. [facility] amLODIPine Yes [id number] 10mg Take 1 [facility] (NORVASC) 1-17 tablet by ity o f 10 mg 00:00: mouth [place] tablet 00 daily. [facility] Branch lisinopriL 0 202- No [id number] 10mg Take 1 Univers 10 mg 1-17 02-18 tablet by ity of tablet 00:00: 00:00 mouth at [place] 00 :00 bedtime. [facility] Branch Dose 2019- No Unknown 0-30 00:00: 00 Dose 2019- No Unknown 0-30 00:00: 00 maalox:diph 2019- 2020- No 15mL 15 mL, Uni vers enhydrAMINE 0-19 10-19 Oral, ity of :lidocaine 03:30: 03:30 ONCE, 1 [facility] as 2 % viscous 00 :00 dose, [place] [facility] 1:1:1 07/01/20 [place] ([facility] at 2230, [facility]) VASILIY oral suspension 15 mL sodium 2019- Yes 5mL 5 mL, Univers chloride 0-19 Intravenou ity o f (NS) 03:00: s, PRN, [place] injection 5 48 Starting Medi amy mL [facility] 07/01/20 at 2200, Until Discontinu ed, Routine, IV line flushing sucralfate 2019- 2020- No [id number] 1g Take 1 Univers 1 gram 0-18 11-02 tablet by ity of tablet 00:00: 05:59 mouth [place] 00 :00 before Medical meals and Branch at bedtime for 14 days. lisinopril 2019-0 No 1mg 10 mg 7-30 tablet 00:00: 00 amlodipine 2020-0 No 1mg 10 mg 7-30 tablet 00:00: 00 lisinopril 2020-0 No 1mg 10 mg 7-30 tablet 00:00: 00 amlodipine 2020-0 No 1mg 10 mg 7-30 tablet 00:00: 00 No known No Univers medications ity of [facility] Immunizations Ordered Filled Date Status Comments Source Immunization Name Immunization Name SARS-COV-2 COVID-19 2021-05-07 Completed Unive rsity of PFIZER VACCINE 00:00:00 [facility] SARS-COV-2 COVID-19 2021-05-07 Completed Unive rsity of PFIZER VACCINE 00:00:00 [facility] SARS-COV-2 COVID-19 2021-05-07 Completed Unive rsity of PFIZER VACCINE 00:00:00 [facility] SARS-COV-2 COVID-19 2021-05-07 Completed Unive rsity of PFIZER VACCINE 00:00:00 [facility] SARS-COV-2 COVID-19 2021-05-07 Completed Unive rsity of PFIZER VACCINE 00:00:00 [facility] SARS-COV-2 COVID-19 2021-05-07 Completed Unive rsity of PFIZER VACCINE 00:00:00 [facility] SARS-COV-2 COVID-19 2021-05-07 Completed Unive rsity of PFIZER VACCINE 00:00:00 [facility] SARS-COV-2 COVID-19 2021-05-07 Completed Unive rsity of PFIZER VACCINE 00:00:00 [facility] SARS-COV-2 COVID-19 2021-05-07 Completed Unive rsity of PFIZER VACCINE 00:00:00 [facility] SARS-COV-2 COVID-19 2021-05-07 Completed Unive rsity of PFIZER VACCINE 00:00:00 [facility] SARS-COV-2 COVID-19 2021-05-07 Completed Unive rsity of PFIZER VACCINE 00:00:00 [facility] SARS-COV-2 COVID-19 2021-05-07 Completed Unive rsity of PFIZER VACCINE 00:00:00 [facility] SARS-COV-2 COVID-19 2021-05-07 Completed Unive rsity of PFIZER VACCINE 00:00:00 [facility] SARS-COV-2 COVID-19 2021-05-07 Completed Unive rsity of PFIZER VACCINE 00:00:00 [facility] SARS-COV-2 COVID-19 2021-05-07 Completed Unive rsity of PFIZER VACCINE 00:00:00 [facility] Branch SARS-COV-2 COVID-19 2021-05-07 Completed Unive rsity of PFIZER VACCINE 00:00:00 [facility] SARS-COV-2 COVID-19 2021-05-07 Completed Unive rsity of PFIZER VACCINE 00:00:00 [facility] Branch SARS-COV-2 COVID-19 2021-05-07 Completed Unive rsity of PFIZER VACCINE 00:00:00 [facility] SARS-COV-2 COVID-19 2021-05-07 Completed Unive rsity of PFIZER VACCINE 00:00:00 [facility] Branch SARS-COV-2 COVID-19 2021-05-07 Completed Unive rsity of PFIZER VACCINE 00:00:00 [facility] Branch SARS-COV-2 COVID-19 2021-05-07 Completed Unive rsity of PFIZER VACCINE 00:00:00 [facility] Branch SARS-COV-2 COVID-19 2021-05-07 Completed Unive rsity of PFIZER VACCINE 00:00:00 [facility] Branch SARS-COV-2 COVID-19 2021-05-07 Completed Unive rsity of PFIZER VACCINE 00:00:00 [facility] Branch SARS-COV-2 COVID-19 2021-05-07 Completed Unive rsity of PFIZER VACCINE 00:00:00 [facility] Branch SARS-COV-2 COVID-19 2021-05-07 Completed Unive rsity of PFIZER VACCINE 00:00:00 [facility] Branch SARS-COV-2 COVID-19 Unknown Completed Unive rsity of PFIZER VACCINE [facility] Branch SARS-COV-2 COVID-19 Unknown Completed Unive rsity of PFIZER VACCINE [facility] Branch SARS-COV-2 COVID-19 Unknown Completed Unive rsity of PFIZER VACCINE [facility] Branch SARS-COV-2 COVID-19 Unknown Completed Unive rsity of PFIZER VACCINE [facility] SARS-COV-2 COVID-19 Unknown Completed Unive rsity of PFIZER VACCINE [facility] Branch SARS-COV-2 COVID-19 Unknown Completed Unive rsity of PFIZER VACCINE [facility] Branch SARS-COV-2 COVID-19 Unknown Completed Unive rsity of PFIZER VACCINE [facility] Branch SARS-COV-2 COVID-19 Unknown Completed Unive rsity of PFIZER VACCINE [facility] SARS-COV-2 COVID-19 Unknown Completed Unive rsity of PFIZER VACCINE [facility] SARS-COV-2 COVID-19 Unknown Completed Unive rsity of PFIZER VACCINE [facility] SARS-COV-2 COVID-19 Unknown Completed Unive rsity of PFIZER VACCINE [facility] Vital Signs Vital Name Observation Time Observation Value Comments Source Systolic blood 2023-07-25 18:00:00 146 mm[Hg] Univer sity of pressure [facility] Branch Diastolic blood 2023-07-25 18:00:00 90 mm[Hg] Unive rsity of pressure [facility] Heart rate 2023-07-25 18:00:00 75 /min Universi ty of [facility] Respiratory rate 2023-07-25 18:00:00 18 /min Univ ersity of [facility] Oxygen saturation in 2023-07-25 18:00:00 95 /min University of Arterial blood by [facility] Pulse oximetry Branch Body temperature 2023-07-25 15:57:00 37.61 Cindi Univ ersity of [place] [facility] Body height 2023-07-25 15:57:00 195.6 cm [facility]i ty [facility] [place] [facility] Body weight 2023-07-25 15:57:00 118.842 kg Universi ty of [facility] BMI 2023-07-25 15:57:00 31.07 kg/m2 Universi ty of [facility] Branch Systolic blood 2023-07-24 21:05:00 140 mm[Hg] Univer sity of pressure [facility] Branch Diastolic blood 2023-07-24 21:05:00 94 mm[Hg] Unive rsity of pressure [facility] Heart rate 2023-07-24 21:05:00 71 /min [facility] [place] [facility] Body temperature 2023-07-24 21:05:00 36.67 Cindi Univ ersity of [place] [facility] Respiratory rate 2023-07-24 21:05:00 18 /min Univ ersity of [place] [facility] Oxygen saturation in 2023-07-24 21:05:00 97 /min University of Arterial blood by [facility] Pulse oximetry Branch Body weight 2023-07-24 18:35:00 115.667 kg [facility]i ty [facility] [place] [facility] BMI 2023-07-24 18:35:00 30.24 kg/m2 [facility] [place] [facility] Systolic blood 2023-07-12 03:30:00 156 mm[Hg] Univer sity of pressure [place] [facility] Diastolic blood 2023-07-12 03:30:00 101 mm[Hg] Unive rsity of pressure [place] [facility] Heart rate 2023-07-12 03:30:00 90 /min [facility]i ty [facility] [place] [facility] Respiratory rate 2023-07-12 03:30:00 20 /min Univ ersity of [place] [facility] Oxygen saturation in 2023-07-12 03:30:00 94 /min University of Arterial blood by [facility] Pulse oximetry Branch Body temperature 2023-07-12 01:57:00 36.67 Cindi Univ ersity of [place] [facility] Body weight 2023-07-12 01:57:00 115.667 kg [facility]i [facility] [place] [facility] BMI 2023-07-12 01:57:00 30.24 kg/m2 [facility] [place] [facility] Systolic blood 2023-07-10 13:34:00 140 mm[Hg] Univer sity of pressure [place] [facility] Diastolic blood 2023-07-10 13:34:00 95 mm[Hg] Unive rsity of pressure [place] [facility] Heart rate 2023-07-10 13:34:00 76 /min [facility]i [facility] [place] [facility] Body temperature 2023-07-10 13:34:00 35.94 Cindi Univ ersity of [place] [facility] Body height 2023-07-10 13:34:00 195.6 cm [facility] [place] [facility] Body weight 2023-07-10 13:34:00 118.298 kg [facility] [place] [facility] BMI 2023-07-10 13:34:00 30.93 kg/m2 [facility] [place] [facility] Oxygen saturation in 2023-07-10 13:34:00 97 /min University of Arterial blood by [facility] Pulse oximetry Branch Systolic blood 2023-07-08 13:43:00 140 mm[Hg] Luz Maria Ng - pressure External Diastolic blood 2023-07-08 13:43:00 100 mm[Hg] Sallie Ng - pressure External Heart rate 2023-07-08 13:43:00 68 /min Luz Maria S eybold - External Body temperature 2023-07-08 13:43:00 36.67 Cindi Kelsi ey Seybold - External Respiratory rate 2023-07-08 13:43:00 16 /min Kelsi ey [facility]bold - External Body height 2023-07-08 13:43:00 195.6 cm Luz Maria Blake [facility]bold - External Body weight 2023-07-08 13:43:00 116.121 kg Luz Maria Blake [facility] - External BMI 2023-07-08 13:43:00 30.36 kg/m2 Luz Maria Blake [facility] - External Systolic blood 2023-07-03 12:45:10 149 mm[Hg] Univer sity of pressure [facility] Diastolic blood 2023-07-03 12:45:10 88 mm[Hg] Unive rsity of [facility] Heart rate 2023-07-03 12:45:10 88 /min [facility] Respiratory rate 2023-07-03 12:45:10 16 /min [facility] Oxygen saturation in 2023-07-03 12:45:10 97 /min [facility] Arterial blood by [facility] Pulse oximetry Branch Body temperature 2023-07-03 09:47:00 36.78 Cindi [facility] 2023-07-03 09:47:00 195.6 cm [facility] Body weight 2023-07-03 09:47:00 113.853 kg [facility] BMI 2023-07-03 09:47:00 29.76 kg/m2 [facility] Systolic blood 2023-05-20 20:08:00 132 mm[Hg] Luz Maria Seybold - pressure External Diastolic blood 2023-05-20 20:08:00 84 mm[Hg] Manojse y Seybold - pressure External Heart rate 2023-05-20 20:08:00 76 /min Luz Maria Blake [facility] - External Body temperature 2023-05-20 20:08:00 37 Cindi Kelsi ey [facility] - External Respiratory rate 2023-05-20 20:08:00 16 /min Kelsi ey Sey[facility] - External Body height 2023-05-20 20:08:00 195.6 cm Luz Maria hamptonbold - External Body weight 2023-05-20 20:08:00 116.121 kg Luz Maria Blake [facility] - External BMI 2023-05-20 20:08:00 30.36 kg/m2 Luz Maria hamptonbold - External Systolic blood 2023-05-08 03:30:00 133 mm[Hg] Univer sity of pressure [place] [facility] Diastolic blood 2023-05-08 03:30:00 87 mm[Hg] Unive rsity of pressure [place] [facility] Heart rate 2023-05-08 03:30:00 70 /min [facility] [place] [facility] Respiratory rate 2023-05-08 03:30:00 18 /min Univ ersity of [place] [facility] Oxygen saturation in 2023-05-08 03:30:00 97 /min University of Arterial blood by [place] [employer] amy Pulse oximetry Branch Body temperature 2023-05-07 22:36:00 36.72 Cindi Univ ersity [facility] [place] [facility] Body weight 2023-05-07 22:36:00 113.853 kg [facility] [place] [facility] BMI 2023-05-07 22:36:00 30.55 kg/m2 [facility] [place] [facility] Systolic blood 2023-05-02 05:00:00 134 mm[Hg] Univer sity of pressure [place] [facility] Diastolic blood 2023-05-02 05:00:00 85 mm[Hg] Unive rsity of pressure [place] [facility] Heart rate 2023-05-02 05:00:00 72 /min [facility] [place] [facility] Oxygen saturation in 2023-05-02 05:00:00 98 /min [facility] of Arterial blood by [place] [employer] amy Pulse oximetry Branch Body temperature 2023-05-02 02:28:00 37.28 Cindi [facility] [place] [facility] Respiratory rate 2023-05-02 02:28:00 20 /min Univ ersity of [place] [facility] Body height 2023-05-02 02:28:00 193 cm [facility] [place] [facility] Body weight 2023-05-02 02:28:00 113.399 kg [facility] [place] [facility] BMI 2023-05-02 02:28:00 30.43 kg/m2 [facility] [place] [facility] Systolic blood 2023-04-22 18:02:36 130 mm[Hg] Univer sity of pressure [place] [facility] Diastolic blood 2023-04-22 18:02:36 80 mm[Hg] Unive rsity of pressure [place] [facility] Heart rate 2023-04-22 18:02:36 68 /min [facility] [place] [facility] Body temperature 2023-04-22 18:02:36 36.78 Cindi [facility] [place] [facility] Respiratory rate 2023-04-22 18:02:36 17 /min Univ ersity of [place] [facility] Oxygen saturation in 2023-04-22 18:02:36 96 /min [facility] of Arterial blood by [place] [employer] amy Pulse oximetry Branch Body height 2023-04-22 08:58:00 195.6 cm [facility] [place] [facility] Body weight 2023-04-22 08:58:00 113.944 kg [facility] [place] [facility] BMI 2023-04-22 08:58:00 29.79 kg/m2 [facility] [place] [facility] Systolic blood 2023-04-16 13:30:00 142 mm[Hg] Univer sity of pressure [place] [facility] Diastolic blood 2023-04-16 13:30:00 98 mm[Hg] Unive rsity of pressure [place] [facility] Heart rate 2023-04-16 13:30:00 65 /min [facility]i [facility] [place] [facility] Respiratory rate 2023-04-16 13:30:00 17 /min Univ ersity of [place] [facility] Oxygen saturation in 2023-04-16 13:30:00 98 /min [facility] of Arterial blood by [place] [employer] amy Pulse oximetry Branch Systolic blood 2023-04-16 12:32:00 155 mm[Hg] Univer sity of pressure [place] [facility] Diastolic blood 2023-04-16 12:32:00 108 mm[Hg] Unive rsity of pressure [place] [facility] Heart rate 2023-04-16 12:32:00 61 /min [facility]i ty [facility] [place] [facility] Respiratory rate 2023-04-16 12:32:00 18 /min Univ ersity of [place] [facility] Oxygen saturation in 2023-04-16 12:32:00 97 /min [facility] of Arterial blood by [place] [employer] amy Pulse oximetry Branch Body temperature 2023-04-16 12:09:00 36.72 Cindi Univ ersity of [place] [facility] Body weight 2023-04-16 12:09:00 118.842 kg [facility]i ty [facility] [place] [facility] BMI 2023-04-16 12:09:00 31.89 kg/m2 [facility] [place] [facility] Systolic blood 2023-04-01 08:00:00 130 mm[Hg] Univer sity of pressure [place] [facility] Diastolic blood 2023-04-01 08:00:00 75 mm[Hg] Unive rsity of pressure [place] [facility] Heart rate 2023-04-01 08:00:00 75 /min [facility]i [facility] [place] [facility] Respiratory rate 2023-04-01 08:00:00 19 /min Univ ersity of [place] [facility] Oxygen saturation in 2023-04-01 08:00:00 96 /min [facility] of Arterial blood by [place] [employer] Pulse oximetry Branch Body temperature 2023-04-01 05:02:00 36.28 Cindi [facility] ers[facility] [place] [facility] Body height 2023-04-01 05:02:00 193 cm [facility] [place] [facility] Body weight 2023-04-01 05:02:00 111.585 kg [facility] [place] [facility] BMI 2023-04-01 05:02:00 29.94 kg/m2 [facility] [place] [facility] Systolic blood 2023-02-13 21:00:00 157 mm[Hg] Univer sity of pressure [place] [facility] Diastolic blood 2023-02-13 21:00:00 89 mm[Hg] Unive rsity of pressure [place] [facility] Heart rate 2023-02-13 21:00:00 102 /min [facility] [place] [facility] Body temperature 2023-02-13 21:00:00 37.89 Cindi [facility] [place] [facility] Respiratory rate 2023-02-13 21:00:00 16 /min Univ ersity [facility] [place] [facility] Body weight 2023-02-13 21:00:00 124.286 kg [facility] [place] [facility] BMI 2023-02-13 21:00:00 33.35 kg/m2 [facility] [place] [facility] Oxygen saturation in 2023-02-13 21:00:00 97 /min [facility] of Arterial blood by [employer] [facility] Pulse oximetry Branch Systolic blood 2022-12-09 06:33:00 152 mm[Hg] Univer sity of pressure [place] [facility] Diastolic blood 2022-12-09 06:33:00 96 mm[Hg] Unive rsity of pressure [place] [facility] Heart rate 2022-12-09 06:33:00 60 /min [facility] [place] [facility] Respiratory rate 2022-12-09 06:33:00 11 /min Univ ersity of [place] [facility] Oxygen saturation in 2022-12-09 06:33:00 96 /min [facility] of Arterial blood by [place] [employer] amy Pulse oximetry Branch Body temperature 2022-12-09 04:51:00 37 Cindi [facility] [place] [facility] Body height 2022-12-09 04:51:00 193 cm [facility] [place] [facility] Body weight 2022-12-09 04:51:00 116.121 kg [facility] [place] [facility] BMI 2022-12-09 04:51:00 31.16 kg/m2 [facility] [place] [facility] Systolic blood 2022-11-25 04:51:00 148 mm[Hg] Univer sity of pressure [place] [facility] Diastolic blood 2022-11-25 04:51:00 96 mm[Hg] Unive rsity of pressure [place] [facility] Heart rate 2022-11-25 04:51:00 71 /min [facility] [place] [facility] Body temperature 2022-11-25 04:51:00 37 Cindi Univ ersity [facility] [place] [facility] Respiratory rate 2022-11-25 04:51:00 16 /min Univ ersity [facility] [place] [facility] Body height 2022-11-25 04:51:00 193 cm [facility] Body weight 2022-11-25 04:51:00 113.399 kg [facility] BMI 2022-11-25 04:51:00 30.43 kg/m2 [facility] Oxygen saturation in 2022-11-25 04:51:00 97 /min [facility] [place] [employer] [facility] P[facility]xim[facility] Systolic blood 2022-10-12 21:48:00 152 mm[Hg] [facility] Diastolic blood 2022-10-12 21:48:00 82 mm[Hg] [facility] Heart rate 2022-10-12 21:48:00 70 /min [facility] Body temperature 2022-10-12 21:48:00 36.89 Cindi [facility] Respiratory rate 2022-10-12 21:48:00 18 /min [facility] Oxygen saturation in 2022-10-12 21:48:00 94 /min [facility] Pulse oxim[facility] Branch Body height 2022-10-11 17:50:00 193 cm [facility] Body weight 2022-10-11 17:50:00 113.399 kg [facility] BMI 2022-10-11 17:50:00 30.43 kg/m2 [facility] Systolic blood 2022-10-09 07:25:23 138 mm[Hg] [facility] Diastolic blood 2022-10-09 07:25:23 86 mm[Hg] [facility] Heart rate 2022-10-09 07:25:23 73 /min [facility] Respiratory rate 2022-10-09 07:25:23 20 /min [facility] Oxygen saturation in 2022-10-09 07:25:23 98 /min [facility] Pulse oxim[facility] Body temperature 2022-10-09 04:12:00 37.28 Cindi [facility] Body height 2022-10-09 04:12:00 193 cm [facility] Body weight 2022-10-09 04:12:00 113.399 kg [facility] BMI 2022-10-09 04:12:00 30.43 kg/m2 [facility] Systolic blood 2022-08-20 14:40:00 147 mm[Hg] [facility] Diastolic blood 2022-08-20 14:40:00 95 mm[Hg] [facility] Heart rate 2022-08-20 14:40:00 75 /min [facility] Body temperature 2022-08-20 14:40:00 36.89 Cindi [facility] Respiratory rate 2022-08-20 14:40:00 20 /min [facility] Body height 2022-08-20 14:40:00 190.5 cm [facility] Body weight 2022-08-20 14:40:00 115.667 kg [facility] of [facility] BMI 2022-08-20 14:40:00 31.87 kg/m2 [facility] Oxygen saturation in 2022-08-20 14:40:00 98 /min [facility] Pulse oximetry Branch height 2022-07-11 09:30:00 77 [in_i] [facility] weight 2022-07-11 09:30:00 253.6 [lb_av] [facility] temperature 2022-07-11 09:30:00 98.3 [degF] [facility] bmi 2022-07-11 09:30:00 30.07 kg/m2 [facility] oximetry 2022-07-11 09:30:00 99 % [facility] respiratory rate 2022-07-11 09:30:00 18 /min [facility] on [facility] blood pressure 2022-07-11 09:30:00 135 mm[Hg] [facility] - systolic [facility] blood pressure 2022-07-11 09:30:00 81 mm[Hg] [facility] diastolic [facility] Systolic blood 2022-06-09 15:00:00 141 mm[Hg] Univer sity of pressure [facility] Diastolic blood 2022-06-09 15:00:00 94 mm[Hg] [facility]ive [facility]ity of [facility] Heart rate 2022-06-09 15:00:00 59 /min [facility] of [facility] Respiratory rate 2022-06-09 15:00:00 16 /min Univ ersity [facility] Oxygen saturation in 2022-06-09 15:00:00 97 /min [facility] Pulse oximetry Branch Body temperature 2022-06-09 11:56:00 36.17 Cindi [facility] Body height 2022-06-09 11:56:00 195.6 cm [facility] Body weight 2022-06-09 11:56:00 127.007 kg [facility] BMI 2022-06-09 11:56:00 33.20 kg/m2 [facility] Systolic blood 2021-11-01 17:12:00 152 mm[Hg] [facility] Diastolic blood 2021-11-01 17:12:00 89 mm[Hg] [facility] Heart rate 2021-11-01 17:12:00 72 /min [facility] Body temperature 2021-11-01 17:12:00 36.17 Cindi [facility] Respiratory rate 2021-11-01 17:12:00 18 /min [facility] Oxygen saturation in 2021-11-01 17:12:00 94 /min [facility] [place] [employer] [facility] Body height 2021-10-30 23:19:00 195.6 cm [facility] Body weight 2021-10-30 23:19:00 116.983 kg [facility] BMI 2021-10-30 23:19:00 30.58 kg/m2 [facility] Systolic blood 2021-05-24 06:00:00 135 mm[Hg] [facility] Diastolic blood 2021-05-24 06:00:00 97 mm[Hg] [facility] Heart rate 2021-05-24 06:00:00 88 /min [facility] Respiratory rate 2021-05-24 06:00:00 21 /min [facility] Oxygen saturation in 2021-05-24 06:00:00 94 /min [facility] [place] [facility] Body temperature 2021-05-24 01:47:00 37.28 Cindi [facility] Body height 2021-05-24 01:47:00 195.6 cm [facility] Body weight 2021-05-24 01:47:00 127.461 kg [facility] BMI 2021-05-24 01:47:00 33.32 kg/m2 [facility] Systolic blood 2021-05-22 23:36:00 154 mm[Hg] [facility] Diastolic blood 2021-05-22 23:36:00 112 mm[Hg] [facility] Heart rate 2021-05-22 23:36:00 97 /min [facility] Body temperature 2021-05-22 23:36:00 36 Cindi [facility] Respiratory rate 2021-05-22 23:36:00 19 /min [facility] Body height 2021-05-22 23:36:00 195.6 cm [facility] Body weight 2021-05-22 23:36:00 127.007 kg [facility] BMI 2021-05-22 23:36:00 33.20 kg/m2 [facility] Oxygen saturation in 2021-05-22 23:36:00 96 /min [facility] [place] [employer] [facility] Systolic blood 2021-05-02 00:01:00 157 mm[Hg] [facility] Diastolic blood 2021-05-02 00:01:00 93 mm[Hg] [facility] Heart rate 2021-05-02 00:01:00 84 /min [facility] Body temperature 2021-05-02 00:01:00 36.56 Cindi [facility] Respiratory rate 2021-05-02 00:01:00 18 /min [facility] Body weight 2021-05-02 00:01:00 126.554 kg [facility] BMI 2021-05-02 00:01:00 33.08 kg/m2 [facility] Oxygen saturation in 2021-05-02 00:01:00 97 /min [facility] [place] [employer] [facility] Systolic blood 2021-04-02 01:01:00 144 mm[Hg] [facility] Diastolic blood 2021-04-02 01:01:00 94 mm[Hg] [facility] Heart rate 2021-04-02 01:01:00 89 /min [facility] Body temperature 2021-04-02 01:01:00 37.06 Cindi [facility] Respiratory rate 2021-04-02 01:01:00 18 /min [facility] Body weight 2021-04-02 01:01:00 129.729 kg [facility] BMI 2021-04-02 01:01:00 33.91 kg/m2 [facility] Oxygen saturation in 2021-04-02 01:01:00 100 /min [facility] Pulse o[facility] Branch Systolic blood 2021-04-02 01:01:00 144 mm[Hg] [facility] Diastolic blood 2021-04-02 01:01:00 94 mm[Hg] [facility] Heart rate 2021-04-02 01:01:00 89 /min [facility] Body temperature 2021-04-02 01:01:00 37.06 Cindi [facility] Respiratory rate 2021-04-02 01:01:00 18 /min [facility] Body weight 2021-04-02 01:01:00 129.729 kg [facility] BMI 2021-04-02 01:01:00 33.91 kg/m2 [facility] Oxygen saturation in 2021-04-02 01:01:00 100 /min [facility] Pulse oxim[facility] Branch Systolic blood 2021-03-18 03:16:13 140 mm[Hg] [facility] Diastolic blood 2021-03-18 03:16:13 80 mm[Hg] [facility] Heart rate 2021-03-18 03:16:13 80 /min [facility] Body temperature 2021-03-18 03:16:13 36.67 Cindi [facility] Respiratory rate 2021-03-18 03:16:13 19 /min [facility] Oxygen saturation in 2021-03-18 03:16:13 99 /min [facility] P[facility] Branch Body weight 2021-03-18 01:02:00 129.729 kg [facility] BMI 2021-03-18 01:02:00 33.91 kg/m2 [facility] Systolic blood 2021-03-18 03:16:13 140 mm[Hg] [facility] Diastolic blood 2021-03-18 03:16:13 80 mm[Hg] [facility] Heart rate 2021-03-18 03:16:13 80 /min [facility] Body temperature 2021-03-18 03:16:13 36.67 Cindi [facility] Respiratory rate 2021-03-18 03:16:13 19 /min [facility] Oxygen saturation in 2021-03-18 03:16:13 99 /min [facility] [place] [employer] [facility] Body weight 2021-03-18 01:02:00 129.729 kg [facility] BMI 2021-03-18 01:02:00 33.91 kg/m2 [facility] Oxygen saturation in 2020-11-15 04:31:00 97 /min [facility] [place] [employer] [facility] Systolic blood 2020-11-15 03:25:00 173 mm[Hg] [facility] Diastolic blood 2020-11-15 03:25:00 97 mm[Hg] [facility] Heart rate 2020-11-15 03:25:00 84 /min [facility] Body temperature 2020-11-15 03:25:00 36.67 Cindi [facility] Respiratory rate 2020-11-15 03:25:00 20 /min [facility] Body weight 2020-11-15 03:25:00 132.45 kg [facility] BMI 2020-11-15 03:25:00 34.63 kg/m2 [facility] Oxygen saturation in 2020-11-15 04:31:00 97 /min [facility] [place] [employer] [facility] Systolic blood 2020-11-15 03:25:00 173 mm[Hg] [facility] Diastolic blood 2020-11-15 03:25:00 97 mm[Hg] [facility] Heart rate 2020-11-15 03:25:00 84 /min [facility] Body temperature 2020-11-15 03:25:00 36.67 Cindi [facility] Respiratory rate 2020-11-15 03:25:00 20 /min [facility] Body weight 2020-11-15 03:25:00 132.45 kg [facility] BMI 2020-11-15 03:25:00 34.63 kg/m2 [facility] Systolic blood 2020-09-30 16:30:00 121 mm[Hg] [facility] Diastolic blood 2020-09-30 16:30:00 66 mm[Hg] [facility] Heart rate 2020-09-30 16:30:00 72 /min [facility] Respiratory rate 2020-09-30 16:30:00 19 /min [facility] Oxygen saturation in 2020-09-30 16:30:00 94 /min [facility] [place] [employer] [facility] Body weight 2020-09-30 14:20:00 136.079 kg [facility] BMI 2020-09-30 14:20:00 35.57 kg/m2 [facility] Body temperature 2020-09-30 14:10:00 37.06 Cindi [facility] Systolic blood 2020-09-30 16:30:00 121 mm[Hg] [facility] Diastolic blood 2020-09-30 16:30:00 66 mm[Hg] [facility] Heart rate 2020-09-30 16:30:00 72 /min [facility] Respiratory rate 2020-09-30 16:30:00 19 /min [facility] Oxygen saturation in 2020-09-30 16:30:00 94 /min [facility] [employer] [facility] Body weight 2020-09-30 14:20:00 136.079 kg [facility] BMI 2020-09-30 14:20:00 35.57 kg/m2 [facility] Body temperature 2020-09-30 14:10:00 37.06 Cindi [facility] Systolic blood 2020-07-02 04:00:00 132 mm[Hg] [facility] Diastolic blood 2020-07-02 04:00:00 84 mm[Hg] [facility] Heart rate 2020-07-02 04:00:00 89 /min [facility] Oxygen saturation in 2020-07-02 04:00:00 95 /min [facility] [place] [employer] [facility] Body temperature 2020-07-02 02:53:00 36.94 Cindi [facility] Respiratory rate 2020-07-02 02:53:00 18 /min [facility] Body height 2020-07-02 02:53:00 195.6 cm [facility] Body weight 2020-07-02 02:53:00 136.079 kg [facility] BMI 2020-07-02 02:53:00 35.57 kg/m2 [facility] Systolic blood 2020-07-02 04:00:00 132 mm[Hg] [facility] Diastolic blood 2020-07-02 04:00:00 84 mm[Hg] [facility] Heart rate 2020-07-02 04:00:00 89 /min [facility] Oxygen saturation in 2020-07-02 04:00:00 95 /min [facility] [place] [facility] Body temperature 2020-07-02 02:53:00 36.94 Cindi [facility] Respiratory rate 2020-07-02 02:53:00 18 /min [facility] Body height 2020-07-02 02:53:00 195.6 cm [facility] Body weight 2020-07-02 02:53:00 136.079 kg [facility] BMI 2020-07-02 02:53:00 35.57 kg/m2 [facility] BP Systolic 2022-07-09 10:22:00 158 mm[Hg] BP [...] Date / Time Performing Clinician Source Performed LIPASE 2023-07-25 16:37:00 Trevor Taylor [facility] MAGNESIUM 2023-07-25 16:37:00 Trevor Taylor [facility] TROPONIN I 2023-07-25 16:37:00 Trevor Taylor Tiffanie [facility] COMP. METABOLIC PANEL 2023-07-25 16:37:00 Trevor Taylor [facility] ([id number]) [facility] CBC WITH DIFF 2023-07-25 16:37:00 Trevor Taylor [facility] URINALYSIS 2023-07-25 16:37:00 Trevor Taylor [facility] o f [facility] CONSENT/REFUSAL FOR 2023-07-25 15:41:41 Doctor Unablessing [facility] DIAGNOSIS AND TREATMENT [facility] US GALL BLADDER 2023-07-24 22:46:02 Johnathan Avila [facility] URINALYSIS 2023-07-24 20:10:00 Johnathan Avila [facility] EXTRA TUBE URINE CULTURE 2023-07-24 20:10:00 Johnathan Avila [facility] LIPASE 2023-07-24 20:09:00 Johnathan Avila [facility] COMP. METABOLIC PANEL 2023-07-24 20:09:00 Johnathan Avila [facility] ([id number]) Medical Branch LIPID PANEL ([id number])(TOTAL 2023-07-24 20:09:00 Johnathan Avila [facility] CHOLESTEROL, [facility] TRIGLYCERIDES, HDL) CBC WITH DIFF 2023-07-24 20:09:00 Johnathan Avila [facility] CONSENT/REFUSAL FOR 2023-07-24 18:31:11 Doctor Unablessing [facility] DIAGNOSIS AND TREATMENT [facility] XR CHEST 2 VW 2023-07-12 03:54:00 Debbie Suarez [facility] D-DIMER 2023-07-12 02:31:00 Debbie Suarez [facility] TROPONIN I 2023-07-12 02:14:00 Norm Saleh [facility] COMP. METABOLIC PANEL 2023-07-12 02:14:00 Norm Saleh [facility] ([id number]) Medical Branch CBC WITH DIFF 2023-07-12 02:14:00 Norm Saleh [facility] COVID-19 (ID NOW RAPID 2023-07-12 02:14:00 Norm Saleh [facility] TESTING) Medical Branch CONSENT/REFUSAL FOR 2023-07-12 01:47:09 Doctor Unablessing [facility] DIAGNOSIS AND TREATMENT [facility] CONSENT FOR MEDICAL 2023-07-10 05:01:00 Doctor Andrea, [facility] TREATMENT OF A MINOR [facility] ABDOMEN PELVIS W 2023-07-03 10:43:57 [facility] CONTRAST [facility] URINALYSIS 2023-07-03 10:23:00 [facility] LIPASE 2023-07-03 10:11:00 Hina [facility] COMP. METABOLIC PANEL 2023-07-03 10:11[id number] CBC WITH DIFF 2023-07-03 [facility] 2023-07-03 09:36:41 Doctor Andrea [facility] DIAGNOSIS AND TREATMENT [facility] CT ABDOMEN PELVIS W 2023-05-08 02:15:59 Riya Joseph [facility] CONTRAST [facility] HB ABO GROUPING 2023-05-08 01:25:00 Jake [facility] LIPASE 2023-05-08 01:19:00 Jake [facility] COMP. METABOLIC PANEL 2023-05-08 01:19:00 Riya Joseph [facility] ([id number]) [facility] CBC WITH DIFF 2023-05-08 01:19:00 Jake [facility] COVID-19 (ID NOW RAPID 2023-05-08 01:19:00 [facility] CONSENT/REFUSAL FOR 2023-05-07 22:22:14 Doctor Andrea [facility] DIAGNOSIS AND TREATMENT [facility] LIPASE 2023-05-02 03:01:00 Carlo Aydin [facility] COMP. METABOLIC PANEL 2023-05-02 03:01:00 Carlo Aydin [facility] ([id number]) Medical Branch ETHANOL 2023-05-02 03:01:00 Carlo Aydin [facility] CBC WITH DIFF 2023-05-02 03:01:00 Aydin [facility] URINALYSIS 2023-05-02 03:01:00 Carlo Aydin [facility] URINE DRUG (IMMUNOASSAY) 2023-05-02 03:01:00 Aydin Matos [facility] - COMPREHENSIVE DRUG Medical [facility] SCREEN W/O REFLEX CONSENT/REFUSAL FOR 2023-05-02 02:28:20 Doctor Unablessing, [facility] DIAGNOSIS AND TREATMENT [facility] BASIC METABOLIC PANEL 2023-04-22 16:47:00 Natali Alexander [facility] (NA, K, CL, CO2, GLUCOSE, Medica l Branch BUN, CREATININE, CA) LIPASE 2023-04-22 12:58:00 Benjamin [facility] BASIC METABOLIC PANEL 2023-04-22 12:58:00 Natali Alexander [facility] (NA, K, CL, CO2, GLUCOSE, Medica l Branch BUN, CREATININE, CA) URINALYSIS 2023-04-22 11:44:00 Abraham Orantes [facility] CREATINE KINASE 2023-04-22 09:06:00 Benjamin [facility] LIPASE 2023-04-22 09:06:00 Benjamin [facility] COMP. METABOLIC PANEL 2023-04-22 09:06:00 Abraham Orantes [facility] ([id number]) [facility] CBC WITH DIFF 2023-04-22 09:06:00 Abraham Orantes [facility] CONSENT/REFUSAL FOR 2023-04-22 08:52:58 Doctor Unablessing [facility] DIAGNOSIS AND TREATMENT [facility] LIPASE 2023-04-16 12:30:00 Adelaide Goodwin [facility] TROPONIN I 2023-04-16 12:30:00 Adelaide Goodwin [facility] COMP. METABOLIC PANEL 2023-04-16 12:30:00 Adelaide Goodwin [facility] ([id number]) [facility] CBC WITH DIFF 2023-04-16 12:30:00 Adelaide Goodwin [facility] CONSENT/REFUSAL FOR 2023-04-16 11:48:23 Doctor Unasschava, [facility] DIAGNOSIS AND TREATMENT [facility] LIPASE 2023-04-01 05:08:00 Morgan [facility] TROPONIN I 2023-04-01 05:08:00 Morgan [facility] COMP. METABOLIC PANEL 2023-04-01 05:08:00 Hemalatha Mora [facility] ([id number]) Medical Branch CBC WITH DIFF 2023-04-01 05:08:00 Morgan [facility] URINALYSIS 2023-04-01 05:08:00 Morgan [facility] CONSENT/REFUSAL FOR 2023-04-01 04:51:45 Doctor Andrea, [facility] DIAGNOSIS AND TREATMENT [facility] ASSIGNMENT OF BENEFITS 2023-02-13 21:19:49 Doctor Andrea, [facility] POCT GLUCOSE (AUTOMATED) 2023-02-13 21:00:00 Jessica Gonzales [facility] CONSENT/REFUSAL FOR 2023-02-13 20:50:30 Doctor Andrea, [facility] DIAGNOSIS AND TREATMENT [facility] REFERRAL- 2023-01-05 05:01:00 Doctor Andrea, [facility] REQUEST/RESPONSE [facility] LIPASE 2022-12-09 05:03:00 Soham Clarke [facility] COMP. METABOLIC PANEL 2022-12-09 05:03:00 Soham Clarke [facility] ([id number]) [facility] CBC WITH DIFF 2022-12-09 05:03:00 Soham Clarke [facility] URINALYSIS 2022-12-09 05:03:00 Soham Clarke [facility] NOTICE OF PRIVACY 2022-12-09 04:46:36 Doctor Andrea, [facility] PRACTICES [facility] CONSENT/REFUSAL FOR 2022-12-09 04:46:16 Doctor Andrea [facility] DIAGNOSIS AND TREATMENT [facility] ABDOMEN PELVIS W 2022-11-25 05:38:20 Lion Rodriguez [facility] CONTRAST Medical Branch LIPASE 2022-11-25 05:06:00 Azam [facility] HEPATIC FUNCTION PANEL 2022-11-25 05:06:00 Azam [facility] ([id number]) (ALB,T.PRO,BILI Medical Branch T,BU/BC,ALT,AST,ALK PHOS) BASIC METABOLIC PANEL 2022-11-25 05:06:00 Azam [facility] (NA, K, CL, CO2, GLUCOSE, Medica l Branch BUN, CREATININE, CA) CBC WITH DIFF 2022-11-25 05:06:00 Azam [facility] URINALYSIS 2022-11-25 [facility]:06[facility] FOR 2022-11-25 04:35:51 Doctor Unassigned, [facility] DIAGNOSIS AND TREATMENT [facility] EXTERNAL PROVIDER RECORDS 2022-10-23 06:01:00 Doctor Unassigned, [facility] CBC WITH DIFF 2022-10-12 21:26:00 Jana [facility] PROSTATIC SPECIFIC 2022-10-12 10:48:00 Jonh Roman [facility] HEPATIC FUNCTION PANEL 2022-10-12 10:48:00 Jana [facility] ([id number]) ([facility] T,BU/BC,ALT,AST,ALK PHOS) BASIC METABOLIC PANEL 2022-10-12 10:48:00 Emy [facility] (NA, K, CL, CO2, GLUCOSE, Medica l Branch BUN, CREATININE, CA) CBC WITH DIFF 2022-10-12 10:48:00 Jana [facility] HEPATIC FUNCTION PANEL 2022-10-11 23:53:00 [id number] (ALB,T.PRO,BILI Medical Branch T,BU/BC,ALT,AST,ALK PHOS) BASIC METABOLIC PANEL 2022-10-11 23:53:00 aJna [facility] (NA, K, CL, CO2, GLUCOSE, Medica l Branch BUN, CREATININE, CA) US GALL BLADDER 2022-10-11 22:28:58 Jana [facility] ABORH CONFIRMATION (LAB 2022-10-11 21:24:00 Lb Bates [facility] ONLY) Medical Branch URINALYSIS 2022-10-11 21:23:00 Jana [facility] HB ABO GROUPING 2022-10-11 20:41:00 Jana [facility] CBC WITH DIFF 2022-10-11 20:35[facility] [facility] 2022-10-11 14:52:00 Aydin Matos [facility] ABDOMEN/PELVIS [facility] HB ECG ROUTINE & RHYTHM 2022-10-11 13:48:04 Aydin Matos [facility] STRIP [facility] Branch LIPASE 2022-10-11 13:42:00 Aydin Matos [facility] TROPONIN I 2022-10-11 13:42:00 Carlo Aydin [facility] COMP. METABOLIC PANEL 2022-10-11 13:42:00 Aydin Matos [facility] ([id number]) [facility] LIPID PANEL (23017)(TOTAL 2022-10-11 13:42:00 [facility] CHOLE[facility], [facility] TRIGLYCERIDES, HDL) CBC WITH DIFF 2022-10-11 13:42:00 Aydin Matos [facility] PROTHROMBIN TIME / INR 2022-10-11 13:42:00 Aydin Matos [facility] ACTIVATED PARTIAL 2022-10-11 13:42:00 Carlo [facility] THRMPLAS TAE [facility] N-TERMINAL PRO-BNP 2022-10-11 13:42:00 Aydin Matos [facility] URINE DRUG (IMMUNOASSAY) 2022-10-11 13:42:00 Aydin Matos [facility] Medical [facility] nch SCREEN W/O REFLEX CONSENT/REFUSAL FOR 2022-10-11 12:24:48 Doctor Unassigned, [facility] DIAGNOSIS AND TREATMENT [facility] ABDOMEN PELVIS W 2022-10-09 06:30:25 Abraham Orantes [facility] CONTRAST Medical Branch LIPASE 2022-10-09 05:24:00 Abraham Orantes [facility] COMP. METABOLIC PANEL 2022-10-09 05:24:00 Abraham Orantes [facility] ([id number]) Medical Branch CBC WITH DIFF 2022-10-09 05:24:00 Abraham Orantes [facility] URINALYSIS 2022-10-09 05:24:00 Lamberto Mdromie [facility] CONSENT/REFUSAL FOR 2022-10-09 03:56:57 Doctor Andrea [facility] COMP. METABOLIC PANEL 2022-08-20 15:11:00 Claudia, [facility] ([id number]) Medical Branch CBC WITH DIFF 2022-08-20 15:11:00 [facility] URINALYSIS 2022-08-20 15:11:00 [facility] CONSENT/REFUSAL FOR 2022-08-20 14:32:58 Doctor Andrea [facility] ABDOMEN PELVIS W 2022-06-09 13:12:35 Tricia [facility] Branch LIPASE 2022-06-09 12:48:00 Soham Clarke [facility] COMP. METABOLIC PANEL 2022-06-09 12:48:00 Soham Clarke [facility] ([id number]) Medical Branch CBC WITH DIFF 2022-06-09 12:48:00 Tricia [facility] URINALYSIS 2022-06-09 12:48:00 Soham Clarke [facility] NOTICE OF PRIVACY 2022-06-09 11:47:39 Doctor Mendez [facility] PRACTICES [facility] CONSENT/REFUSAL FOR 2022-06-09 11:47:18 Doctor Andrea [facility] DIAGNOSIS AND TREATMENT [facility] PHOSPHORUS 2021-11-01 09:55:00 Darshan [facility] MAGNESIUM 2021-11-01 09:55:00 Darshan [facility] BASIC METABOLIC PANEL 2021-11-01 09:55:00 Darshan [facility] (NA, K, CL, CO2, GLUCOSE, Medica l Branch BUN, CREATININE, CA) CBC WITH DIFF 2021-11-01 09:55:00 Darshan [facility] PHOSPHORUS 2021-10-31 08:45:00 [facility] CREATINE KINASE 2021-10-31 08:45:00 [facility] MAGNESIUM 2021-10-31 08:45:00 Julián [facility] TROPONIN I 2021-10-31 08:45:00 [facility] COMP. METABOLIC PANEL 2021-10-31 08:45:00 Leela [facility] ([id number]) [facility] CBC WITH DIFF 2021-10-31 08:45:00 Emelia Gallego [facility] PROTHROMBIN TIME / INR 2021-10-31 08:45:00 Leela greg [facility] N-TERMINAL PRO-BNP 2021-10-31 08:45:00 Roxanne Swenson [facility] LACTIC ACID WHOLE BLOOD 2021-10-31 08:45:00 Roxanne Swenson [facility] FECES CULTURE 2021-10-30 22:27:00 Monica Hernandez [facility] OCCULT (GUAIAC) BLOOD 2021-10-30 22:27:00 Monica Hernandez [facility] CLOSTRIDIUM DIFFICILE 2021-10-30 22:27:00 Monica Hernandez [facility] TOXIN [facility] COVID-19 (ID NOW RAPID 2021-10-30 21:24:00 Madison Sepulveda [facility] TESTING) [facility] Branch LAB ONLY COVID 2021-10-30 21:24:00 Madison Sepulveda [facility] INTERPRETATION [facility] CT ABDOMEN PELVIS W 2021-10-30 20:44:09 Madison Sepulveda [facility] CONTRAST Medical Branch LIPASE 2021-10-30 20:25:00 Madison Sepulveda [facility] TROPONIN I 2021-10-30 20:25:00 Roxanne Swenson [facility] COMP. METABOLIC PANEL 2021-10-30 20:25:00 Madison Sepulveda [facility] ([id number]) [facility] CBC WITH DIFF 2021-10-30 20:25:00 Madison Sepulveda [facility] URINALYSIS 2021-10-30 20:25:00 Madison Sepulveda [facility] N-TERMINAL PRO-BNP 2021-10-30 20:25:00 Roxanne Swenson [facility] CONSENT/REFUSAL FOR 2021-10-30 19:24:05 Doctor Unassigned, [facility] DIAGNOSIS AND TREATMENT [facility] CREATINE KINASE 2021-05-24 04:40:00 Felipe Ortega [facility] BASIC METABOLIC PANEL 2021-05-24 04:40:00 Felipe Ortega [facility] (NA, K, CL, CO2, GLUCOSE, Medica l Branch BUN, CREATININE, CA) URINALYSIS 2021-05-24 02:14:00 Felipe Ortega [facility] CREATINE KINASE 2021-05-24 01:53:00 Felipe Ortega [facility] TROPONIN I 2021-05-24 01:53:00 Felipe Ortega [facility] COMP. METABOLIC PANEL 2021-05-24 01:53:00 Felipe Ortega [facility] ([id number]) [facility] CBC WITH DIFF 2021-05-24 01:53:00 Felipe Ortega [facility] N-TERMINAL PRO-BNP 2021-05-24 01:53:00 Felipe Ortega [facility] Medical Branch ASSIGNMENT OF BENEFITS 2021-05-23 00:46:04 Doctor Unassigned, [facility] CONSENT/REFUSAL FOR 2021-05-22 23:31:57 Doctor Unasschava, [facility] DIAGNOSIS AND TREATMENT [facility] SARS-COV-2 COVID-19 2021-05-07 16:12:40 Doctor Andrea [facility] VACCINE,0.3ML,IM (PFIZER) [facility] RAPID STREP SCREEN FOR 2021-05-02 00:07:00 Aydin Matos [facility] GROUP A Medical Branch COVID-19 (ID NOW RAPID 2021-05-02 00:07:00 Aydin Matos [facility] TESTING) Medical Branch CONSENT/REFUSAL FOR 2021-05-01 23:56:07 Doctor Andrea [facility] DIAGNOSIS AND TREATMENT [facility] RAPID STREP SCREEN FOR 2021-04-02 01:05:00 Nikhil Blanton [facility] GROUP A Medical Branch COVID-19 (ID NOW RAPID 2021-04-02 01:05:00 Nikhil Blanton [facility] TESTING) Medical Branch NOTICE OF PRIVACY 2021-04-02 00:56:18 Doctor Andrea [facility] PRACTICES [facility] CONSENT/REFUSAL FOR 2021-04-02 00:49:05 Doctor Andrea [facility] DIAGNOSIS AND TREATMENT [facility] XR WRIST 3+ VW LEFT 2021-03-18 01:19:59 Nikhil Blanton [facility] Medical Branch URINALYSIS 2021-03-18 01:12:00 Nikhil Blanton [facility] Medical Branch CONSENT/REFUSAL FOR 2021-03-18 00:56:01 Doctor Andrea [facility] DIAGNOSIS AND TREATMENT [facility] XR CHEST 1 VW 2020-11-15 03:48:28 Darnell Hsu [facility] o [facility] Medical Branch CONSENT/REFUSAL FOR 2020-11-15 03:11:27 Doctor Unasschava [facility] DIAGNOSIS AND TREATMENT [facility] HEAD WO CONTRAST 2020-09-30 15:00:43 Jessy Siddiqui [facility] XR CHEST 1 VW 2020-09-30 14:37:13 Jessy Siddiqui [facility] LIPASE 2020-09-30 14:25:00 Jessy Siddiqui [facility] TROPONIN I 2020-09-30 14:25:00 Jessy Siddiqui [facility] COMP. METABOLIC PANEL 2020-09-30 14:25:00 Jessy Siddiqui [id number] CBC WITH DIFF 2020-09-30 14:25:00 Jessy Siddiqui [facility] N-TERMINAL PRO-BNP 2020-09-30 14:25:00 Jessy Siddiqui [facility] NOTICE OF PRIVACY 2020-09-30 13:57:13 Doctor Andrea, [facility]ACTICES [facility] CONSENT/REFUSAL FOR 2020-09-30 13:55:57 Doctor Andrea [facility]NOSIS [facility] EKG-12 LEAD 2020-07-02 03:20:42 Felipe Ortega [facility] LIPASE 2020-07-02 03:05:00 Abraham Orantes [facility] TROPONIN I 2020-07-02 03:05:00 Felipe Ortega [facility] COMP. METABOLIC PANEL 2020-07-02 03:05:00 Abraham Orantes [facility] ([id number]) [facility] CBC WITH DIFF 2020-07-02 03:05:00 Abraham Orantes [facility] NOTICE OF PRIVACY 2020-07-02 02:48:43 Doctor Andrea, [facility] CONSENT/REFUSAL FOR 2020-07-02 02:46:14 Doctor Andrea [facility]NOSIS [facility] Plan of Care Planned Activity Planned Date Details Comments Source Goal Plan of Care Note [code = 19766-9] Goal Plan of Care Note [code = 26596-0] Goal Plan of Care Note [code = 22165-6] Goal Plan of Care Note [code = 03994-0] Goal Plan of Care Note [code = 02195-4] Goal Plan of Care Note [code = 07687-5] Goal Plan of Care Note [code = 46090-5] Goal Plan of Care Note [code = 52875-4] Goal Plan of Care Note [code = 22216-4] Goal Plan of Care Note [code = 20936-5] Goal Plan of Care Note [code = 34468-8] Goal Plan of Care Note [code = 86247-5] Goal Plan of Care Note [code = 16124-2] Goal Plan of Care Note [code = 03922-4] Goal Plan of Care Note [code = 96524-3] Encounters Start End Encounter Admission Attending Care Care Encounter Source Date/Time Date/Time Type Type Clinicians Facility Department ID 2022-07-29 [facility] [id number] 2 Common 14:17:02 [facility] [address] [facility] 2022-07-11 Outpatient ANAM James [facility] [id number] 2 Common 08:20:03 [facility] 10253 [facility] 2023-08-11 2023-08-11 Outpatient ANABELT LUZ MARIA HOLLIDAY [id number] Luz Maria 16:15:00 16:15:00 , Alden ARELLAON 2023-07-25 2023-07-25 Emergency X Trevor TAYLOR [facility] ERT [id number] Univers 09:58:00 12:56:00 [facility] 2023-07-25 2023-07-25 Emergency Trevor Taylor [facility] 1.2.840.114 [id number] Univers 09:58:00 12:56:00 Tiffanie RODRIGUEZ 350.1.13.10 i Day [facility] 4.2.7.2.686 [facility] [id number] [place] [address] Branch 2023-07-24 2023-07-24 Emergency X MARGARITA [facility] ERT [id number] Univers 12:36:00 17:49:[address] [facility] 2023-07-24 2023-07-24 Emergency Margarita [facility] [id number] Univers 12:36:00 17:49:00 [facility] 350.1.13.10 it y of [place]leg[place] ALBERT[place] [facility] [id number] [address] ([facility]) 2023-07-24 2023-07-24 Outpatient HENRIK HOLLIDAY [id number] Luz Maria 14:30:00 14:30:00 Alden 2023-07-23 2023-07-23 Emergency EM SANTOSH PaulWU [facility] [id number] [facility] 05:22:00 10:02:[address] [facility] 2023-07-22 2023-07-22 Telephone [facility] [id number] Univers 00:00:00 00:00:00 Leroy SPECIALTY 350.1.13.10 it[place] AT [id number] Ia remington [address] 2023-07-20 2023-07-20 [facility]phone [email or web address] [id number] Univers 00:00:00 00:00:00 [place] SPECIALTY 350.1.13.10 it[place] C[place] AT [id number] Ia harjit[address] 2023-07-17 2023-07-17 Outpatient LUZ MRAIA BRENNAN [id number] Luz Maria 13:45:00 13:45:00 NANCY purdy 2023-07-11 2023-07-11 Emergency X DEBBIE SUAREZ, [facility] ERT [id number] Univers 20:53:00 23:38:00 STEPHIE ity of [facility] 2023-07-11 2023-07-11 Emergency Asan Sathya, TRAUMA 1.2.840.114 [id number] Univers 20:53:00 23:38:00 [facility] 350.1.13.10 [id number] [address] 2023-07-10 2023-07-10 Outpatient [facility] [id number] Univers 08:45:00 12:03:37 ADEL ity of [facility] 2023-07-10 2023-07-10 Office Rocky [facility] 1.2.840.114 [id number] Univers 08:45:00 12:03:37 Visit Leroy SPECIALTY 350.1.13.10 it[place].2.[place] AT [id number] Ia remington ANTOINE 072 Branch [facility] 2023-07-10 2023-07-10 Orders Doctor KARL 1.2.840.114 [id number] Univers 00:00:00 00:00:00 Only Unassigned, EVE 350.1.13.10 ity of [facility] 4.2.7.2.686 Jim as [id number] [facility] 009 Branch 2023-07-08 2023-07-08 Outpatient LUZ MARIA RICHARDSON [id number] Luz Maria 09:15:00 09:15:00 KIARA Ingram farooq 2023-07-03 2023-07-03 Emergency X MIRIAM LUDWIG [facility] ERT [id number] Univers 04:49:00 09:47:[address] [facility] 2023-07-03 2023-07-03 Emergency Aufderhejerilyn, Haresh Saeed TRAU[place] 1.2.840.114 [id number] Univers 04:49:00 09:47:00 Miriam Ludwig CAR[place] 350.1.13.10 it[place] [id number] [facility] 014 Branch 2023-07-01 2023-07-02 Emergency EM Dancel, [facility] ER [id number] [facility] 22:56:00 01:00:00 Kristian blake [facility] 2023-05-20 2023-05-20 Outpatient LAB56 LUZ MARIA HOLLIDAY [id number] Luz Maria 15:50:00 15:50:00 Seybol d 2023-05-20 2023-05-20 Outpatient LUZ MARIA RICHARDSON [id number] Luz Maria 15:15:00 15:15:00 KIARA faith 2023-05-07 2023-05-07 Emergency X STILGENBAUE [facility] ERT [id number] Univers 17:37:00 23:23:00 Edith JESSICA faridachanda o f [facility] 2023-05-07 2023-05-07 Emergency Stilgenbaue TRAUMA 1.2.840.114 [id number] Univers 17:37:00 23:23:00 Jessica hensley [place] 350.1.13.10 [place] [id number] [address] 2023-05-01 2023-05-02 Emergency [facility] ERT [id number] Univers 21:39:00 00:35:00 AYDIN hester [facility] 2023-05-01 2023-05-02 Emergency [facility] [id number] [id number] Univers 21:39:00 00:35:00 Aydin RODRIGUEZ 350.1.13.10 i ty of [place] 4.2.7.2.686 [facility] [id number] [address] 2023-04-22 2023-04-22 Emergency [facility] ERT [id number] Univers 03:51:00 13:11:00 NATALI iqbaly [facility] 2023-04-22 2023-04-22 Emergency YohanariAman zuletali S [facility] 1.2.840 .114 [id number] Univers 03:51:00 13:11:00 Natali Alexander 350.1.13.1 0 ity [facility] 4.2.7.2.686 [facility] [id number] [address] 2023-04-16 2023-04-16 Emergency X CHRISTA, [facility] ERT [id number] Univers 07:09:00 09:00:00 ADELAIDE hester [facility] 2023-04-16 2023-04-16 Emergency Christa, TRAUMA 1.2.840.114 [id number] Univers 07:09:00 09:00:00 Adelaide CARSON 350.1.13.10 it [place]2.7.2.686 [place] [id number] [address] 2023-03-31 2023-04-01 Emergency X MORGAN [facility] ERT [id number] Univers 23:59:00 03:24:00 SHINTA ity [facility] 2023-03-31 2023-04-01 Emergency [facility] 1.2.840.114 [id number] Univers 23:59:00 03:24:00 Hemalatha RODRIGUEZ 350.1.13.10 i ty of [place] 4.2.7.2.686 [facility] [id number] [address] 2023-02-13 2023-02-13 Emergency [facility] ERT [id number] Univers 16:02:00 17:25:00 JESSICA ity [facility] 2023-02-13 2023-02-13 Emergency [facility] 1.2.259.920 [id number] Univers 16:02:00 17:25:00 Jessica RODRIGUEZ 350.1.13.10 i ty of [place] 4.2.7.2.686 [facility] [id number] [address] 2023-01-05 2023-01-05 Orders Doctor KARL 1.2.840.114 [id number] Univers 00:00:00 00:00:00 Only Unassigned, EVE 350.1.13.10 ity of [place] [facility] 4.2.7.2.686 Jim [id number] [facility] 009 Branch 2022-12-29 2022-12-29 Outpatient SFA [facility] [id number] Dewey 17:25:40 17:25:40 0417 F Kris 2022-12-09 2022-12-09 Emergency [facility] ERT [id number] Univers 00:01:00 01:39:00 SOHAM hester [facility] 2022-12-09 2022-12-09 Emergency [facility] 1.2.588.353 [id number] Univers 00:01:00 01:39:00 Soham RODRIGUEZ 350.1.13.10 ity of [place] 4.2.7.2.686 [facility] [id number] [address] 2022-11-24 2022-11-25 Emergency X CARLO [facility] ERT [id number] Univers 23:44:00 02:56:00 AYDIN faridachanda [facility] 2022-11-24 2022-11-25 Emergency Azam, [facility] 1.2.826.654 [id number] Univers 23:44:00 02:56:00 Lion RODRIGUEZ 350.1.13.10 i ty [facility] 4.2.7.2.686 [place] [facility] [id number] [facility] 084 Branch 2022-10-25 2022-10-25 Patient Doctor KARL 1.2.840.114 [id number] Univers 00:00:00 00:00:00 Secure Msg Unassigned, EVE 350.1.13.10 ity of [place] [facility] 4.2.7.2.686 Jim as [id number] [facility] 019 Branch 2022-10-23 2022-10-23 Orders Doctor KARL 1.2.840.114 [id number] Univers 00:00:00 00:00:00 Only Unassigned, EVE 350.1.13.10 ity of [place] [facility] 4.2.7.2.686 Jim as [id number] [facility] 009 Branch 2022-10-11 2022-10-12 Outpatient X DAVID [facility] MARTI [id number] Univers 06:41:00 17:56:00 MARK hester [facility] 2022-10-11 2022-10-12 Emergency Aydin Matos 1.2.840. 114 [id number] Univers 06:41:00 17:56:00 Mark Hernandez 350.1.13.10 ity of [facility] 4.2.7.2.686 Jmi as [id number] [facility] 093 Branch 2022-10-08 2022-10-09 Emergency X [facility] ERT [id number] Univers 22:15:00 01:39:00 ABRAHAM hester [facility] 2022-10-08 2022-10-09 Emergency [facility] 1.2.439.576 [id number] Univers 22:15:00 01:39:00 Abraham RODRIGUEZ 350.1.13.10 ity of [place] 4.2.7.2.686 [facility] [id number] [place] [id number] [place] 2022-10-08 2022-10-08 Orders Doctor KARL 1.2.840.114 [id number] Univers 00:00:00 00:00:00 Only Unassigned, EVE 350.1.13.10 ity of [place] [facility] 4.2.7.2.686 Jim [id number] [place] [address] Branch 2022-08-20 2022-08-20 Emergency X Trevor TAYLOR [facility] ERT [id number] Univers 08:42:00 12:19:00 ity of [facility] 2022-08-20 2022-08-20 Emergency Claudia, K [facility] 1.2.840.114 [id number] Univers 08:42:00 12:19:00 Tiffanie RODRIGUEZ 350.1.13.10 i ty of [place] 4.2.7.2.686 [facility] [id number] [address] 2022-07-11 2022-07-11 OFFICE [facility] [id number] Co mmon 00:00:00 00:00:00 VISIT [facility] it PT LEVEL 3 - [facility] 2022-07-09 2022-07-09 Outpatient [facility] SFA [id number] Dewey 10:07:22 10:07:22 1026 F Kris 2022-07-09 2022-07-09 Outpatient [id number] 00:00:00 00:00:00 Visit [id number] 2022-06-09 2022-06-09 Emergency [facility] ERT [id number] Univers 06:57:00 10:27:00 SOHAM hester of [facility] 2022-06-09 2022-06-09 Emergency Tricia [facility] 1.2.957.496 [id number] Univers 06:57:00 10:27:00 Soham RODRIGUEZ 350.1.13.10 ity [facility] 4.2.7.2.686 [facility] [id number] [facility] 084 Branch 2022-06-09 2022-06-09 Orders Doctor KARL 1.2.840.114 [id number] Univers 00:00:00 00:00:00 Only Unassigned, EVE 350.1.13.10 ity of [place] [facility] 4.2.7.2.686 Jim as [id number] [facility] 009 Branch 2021-11-04 2021-11-04 Transition KAMLA Carroll 1.2.840.114 [id number] Univers 00:00:00 00:00:00 of Care Ellen MOORE 350.1.13.10 i ty of [place] 4.2.7.2.686 [place] [id number] [facility] 403 Branch 2021-10-30 2021-11-01 Inpatient X JULIÁN [facility] [id number] Univers 13:39:00 13:45:00 EMELIA hester [facility] 2021-10-30 2021-11-01 [facility] Madison Sepulveda [facility] 1.2.8 40.114 [id number] Univers 13:39:00 13:45:00 Encounter Emelia Gallego [id number] ity of [place] 4.2.7.2.686 [facility] [phone] [place] [id number] [place] 2021-10-30 2021-10-30 Orders Doctor KARL [id number] Univers 00:00:00 00:00:00 Only Unassigned, EVE 350.1.13.10 ity of [place] [facility] 4.2.7.2.686 Jim as [id number] [facility] [address] 2021-05-23 2021-05-24 [facility] 1.2.840.114 [id number] Univers 20:42:00 01:42:00 Felipe Rodriguez 350.1.13.10 i ty of [place] 4.2.7.2.686 [facility] [id number] [facility] [address] 2021-05-23 2021-05-23 Emergency X SHANNON [facility] ERT [id number] Univers 20:42:00 20:42:00 FELIPE ity of [facility] 2021-05-22 2021-05-22 Emergency Drever, [facility] [id number] Univers 18:37:00 21:40:00 Gabriella Richard Pati 350.1.13.10 ity of [place] 4.2.7.2.[address] [place] [phone] 2021-05-22 2021-05-22 Emergency X [facility] ERT [id number] Univers 18:31:00 18:31:00 ity of [facility] 2021-05-07 2021-05-07 Imm/Inj Nurse, Adc Pob Immunization [facility] 1.2.840.114 [id number] Univers 11:11:35 11:11:42 Visit David Clarke 350.1.13 .10 ity of [place] 4.2.7..[address] [place] [address] Professio [phone] Ia dical nal [address] [place] [address] 2021-05-01 2021-05-01 Emergency [place], [facility] 1.2.840.114 [id number] Univers 19:09:00 20:46:00 Nikhil Rodriguez 350.1.13.10 i ty of [place] 4.2.7.2.[address] [place] [id number] 2021-05-01 2021-05-01 Emergency X [facility] ERT [id number] Univers 18:53:00 18:53:00 ity of [facility] 2021-04-01 2021-04-01 Emergency [place], [facility] 1.2.840.114 [id number] Univers 20:06:00 21:56:00 Nikhilberhane Rodriguez 350.1.13.10 i ty of [place] 4.2.7.2.[address] [place] [id number] 2021-04-01 2021-04-01 Emergency [place], [facility] 1.2.840.114 [id number] 20:06:00 21:56:00 Nikhil Rodriguez 350.1.13.10 [place] 4.2.7.2.686 Jane Lew [id number] 084 2021-04-01 2021-04-01 Emergency X BLANTON, [facility] ERT [id number] Univers 20:06:00 20:06:00 NIKHIL ity [facility] 2021-03-17 2021-03-17 Emergency [place], [facility] 1.2.840.114 [id number] 20:09:00 22:19:00 Nikhil Rodriguez 350.1.13.10 [place] 42.7.2.686 Jane Lew [id number] 084 2021-03-17 2021-03-17 Emergency [place], [facility] 1.2.840.114 [id number] Univers 20:09:00 22:19:00 Nikhil Rodriguez 350.1.13.10 i ty [address]7.2.686 [facility] Jane Lew [phone] [address] 2021-03-17 2021-03-17 Emergency X [facility] ERT [id number] Univers 19:56:00 19:56:00 ity [facility] 2020-11-15 2020-11-15 Telephone KARL Laurent.2.608.827 [id number] 00:00:00 00:00:00 Patient EVE 350.1.13.10 Does Not HOSPITAL [facility].7.2.686 Have A [id number] 019 2020-11-15 2020-11-15 Letter KARL Mar.2.840.114 [id number] 00:00:00 00:00:00 (Out) Mirna Topete EVE 350.1.13.10 HOSPITAL 2.7.2.68 [id number] 019 2020-11-15 2020-11-15 Letter KARL Mar.2.840.114 [id number] Univers 00:00:00 00:00:00 (Out) Mirna Topete EVE 350.1.13.10 it y of [facility] 42.7.2.686 Jim as [phone] [address] 2020-11-15 2020-11-15 Telephone PcpKARL2.126.142 [id number] 2267 Univers 00:00:00 00:00:00 Patient EVE 350.1.13.10 it y of [facility] [place] A [id number] [facility] [address] 2020-11-14 2020-11-14 Emergency [facility] 1.2.493.854 [id number] 21:29:00 22:55:00 Darnell Crock[place] 350.1.13.10 [place] 4.2.7.2.686 Jane Lew [id number] [id number] 2020-11-14 2020-11-14 Emergency [facility] 1.2.981.639 [id number] Univers 21:29:00 22:55:00 Darnell Edith [place] 350.1.13.10 i ty of [place] 4.2.7.2.686 [facility] [phone] [address] 2020-11-14 2020-11-14 Emergency X [facility] ERT [id number] Univers 21:29:00 22:55:00 DARNELL ity [facility] 2020-09-30 2020-09-30 Emergency [facility] 1.2.840.114 [id number] 08:03:00 10:45:00 Jessy Rodriguez 350.1.13.10 [place] 4.2.7.2.686 Jane Lew [id number] [facility] 2020-09-30 2020-09-30 Emergency [facility] 1.2.840.114 [id number] Univers 08:03:00 10:45:00 Jessy Rodriguez 350.1.13.10 ity [facility] 4.2.7.2.686 [facility] [phone] [address] 2020-09-30 2020-09-30 Emergency X [facility] ERT [id number] Univers 07:58:00 07:58:00 ity [facility] 2020-09-30 2020-09-30 Orders Doctor BARAJAS 1.2.840.114 [id number] 00:00:00 00:00:00 Only Unassigned, EVE 350.1.13.10 Dequincy [facility] 4.2.7.2.686 [id number] 009 2020-09-30 2020-09-30 Orders Doctor KARL 1.2.840.114 [id number] Univers 00:00:00 00:00:00 Only Unassigned, EVE 350.1.13.10 ity of [place] [facility] 4.2.7.2.686 Jim [id number] [address] 2020-07-01 2020-07-01 [facility] 1.2.840.114 [id number] 21:58:00 23:54:00 Felipe [place] 350.1.13.10 [place] 4.2.7.2.686 Jane Lew [id number] [facility] 2020-07-01 2020-07-[address] [facility] 1.2.840.114 [id number] Univers 21:58:00 23:54:00 Felipe B [place] 350.1.13.10 i ty of [place] 4.2.7.2.686 [facility] [phone] [address] 2020-07-01 2020-07-01 Emergency X HEISKELL, [facility] ERT [id number] Univers 21:58:00 21:58:00 [facility] Results Test Description Test Time Test Comments Results Result Comments Source TROPONIN I 2023-07-25 17:24:34 Test Item Value Reference Range Interpretation Comme nts TROPONIN I (test code = 1147559584) 0.018 ng/mL <=0.034 KRYSTLE (test code = KRYSTLE) [...] biotin. Lab Interpretation (test code = Normal 37152-9) [facility] 17:13:15 Test Item Value Reference Range Interpretation Comments MAGNESIUM (test code = 4431051435) 1.9 mg/dL 1.7-2.4 Lab Interpretation (test code = Normal 74704-7) [facility] METABOLIC PANEL (21342)2023-07-25 17:12:55 Test Item Value Reference Range Interpretation Comments NA (test code = 141 mmol/L 135-145 6585936179) K (test code = 3.8 mmol/L 3.5-5.0 4463139417) CL (test code = 106 mmol/L 98-108 1267596836) CO2 TOTAL (test code = 27 mmol/L 23-31 3158501958) AGAP (test code = 8 2-16 5157959300) BUN (test code = 14 mg/dL 7-23 1874135570) GLUCOSE (test code = 124 mg/dL 70-110 H 0183894876) CREATININE (test code = 0.93 mg/dL 0.60-1.25 2945836963) TOTAL BILI (test code = 0.8 mg/dL 0.1-1.6 0094351349) CALCIUM (test code = 9.3 mg/dL 8.6-10.6 1952337471) T PROTEIN (test code = 8.2 g/dL 6.3-8.2 9937046927) ALBUMIN (test code = 4.4 g/dL 3.5-5.0 6738470746) ALK PHOS (test code = 49 U/L 34-122 6934559532) ALTv (test code = 20 U/L 5-50 1742-6) AST(SGOT) (test code = 28 U/L 13-40 1663781880) eGFR (test code = 100.0 mL/min/1.73m2 CKD-EPI e GFR 77119-7) (2020). Assumin g creatinine has been stable day-to-d ay for at least th ree months, the eGF R indicates Categ ory G1 (>= 90 mL/min/1.73 m2) Lab Interpretation (test Abnormal code = 76748-1) [facility]2023-[facility]-11 17:12:35 Test Item Value Reference Range Interpretation Comments LIPASE (test code = 5276181608) 109 U/L 0-220 Lab Interpretation (test code = Normal 92557-7) [facility] WITH [id number] 16:59:59 Test Item Value Reference Range Interpretation Comments WBC (test code = 5.17 See_Comment [Automated 6690-2) message] The sy stem which generated this result transmitted reference range : 4.20 - 10.70 10*3/?L. The reference range was not used to interpret this result as normal/abnormal . RBC (test code = 5.04 See_Comment [Automated 789-8) message] The sy stem which generated this result transmitted reference range : 4.26 - 5.52 10*6/?L. The reference range was not used to interpret this result as normal/abnormal . HGB (test code = 15.6 g/dL 12.2-16.4 718-7) HCT (test code = 43.6 % 38.4-49.3 4544-3) MCV (test code = 86.5 fL 81.7-95.6 787-2) MCH (test code = 31.0 pg 26.1-32.7 785-6) MCHC (test code = 35.8 g/dL 31.2-35.0 H 786-4) RDW-SD (test code = 39.2 fL 38.5-51.6 90399-1) RDW-CV (test code = 12.5 % 12.1-15.4 788-0) PLT (test code = 207 See_Comment [Automated 777-3) message] The sy stem which generated this result transmitted reference range : 150 - 328 10*3/ ?L. The reference r andrea was not used to interpret this result as normal/abnormal . MPV (test code = 10.0 fL 9.8-13.0 27342-9) NRBC/100 WBC (test 0.0 See_Comment [Automat ed code = 3748348776) message] The system which generated this result transmitted reference range : 0.0 - 10.0 /100 WBCs. The refer ence range was not u sed to interpret th is result as normal/abnormal . NRBC x10^3 (test code See_Comment [Auto mated = 8202316169) message] The s ystem which generated this result transmitted reference range : 10*3/?L. The reference range was not used to interpret this result as normal/abnormal . GRAN MAT (NEUT) % 45.8 % (test code = 770-8) IMM GRAN % (test code 0.20 % = 1345861919) LYMPH % (test code = 42.9 % 736-9) MONO % (test code = 9.9 % 5905-5) EOS % (test code = 0.8 % 713-8) BASO % (test code = 0.4 % 706-2) GRAN MAT x10^3(ANC) 2.37 10*3/uL 1.99-6.95 (test code = 4438162062) IMM GRAN x10^3 (test 0.00-0.06 code = 4527799772) LYMPH x10^3 (test code 2.22 10*3/uL 1.09-3.23 = 731-0) MONO x10^3 (test code 0.51 10*3/uL 0.36-1.02 = 742-7) EOS x10^3 (test code = 0.04 10*3/uL 0.06-0.53 L 711-2) BASO x10^3 (test code 0.01-0.09 = 704-7) Lab Interpretation Abnormal (test code = 22463-4) [facility]IP[facility] PAN[facility] (43221)(TOTAL CHOLESTEROL, TRIGLYCERIDES, HDL)2023-07-24 21:48:18 Test Item Value Reference Range Interpretation Comments CHOL (test code = 3020565869) 220 mg/dL 120-200 H HDL (test code = 0117366637) 31 mg/dL >=40 L HDLC RATIO (test code = 1938736757) 7.1 <=5.0 H TRIG (test code = 0342768151) 134 mg/dL 30-170 LDL CHOL (test code = 59901-0) 162 mg/dL <=160 H VLDL (test code = 5904962077) 27 mg/dL 5-60 Lab Interpretation (test code = Abnormal 86459-4) [facility] Metabolic [id number] 20:48:07 Test Item Value Reference Range Interpretation Comments NA (test code = 141 mmol/L 135-145 9404400987) K (test code = 3.8 mmol/L 3.5-5.0 5382127108) CL (test code = 103 mmol/L 98-108 2971245288) CO2 TOTAL (test code = 29 mmol/L 23-31 9777323457) AGAP (test code = 9 2-16 2098766835) BUN (test code = 14 mg/dL 7-23 3245209300) GLUCOSE (test code = 102 mg/dL 70-110 3156216162) CREATININE (test code = 0.85 mg/dL 0.60-1.25 5233836359) TOTAL BILI (test code = 1.2 mg/dL 0.1-1.1 H 2776241968) CALCIUM (test code = 10.0 mg/dL 8.6-10.6 5062375621) T PROTEIN (test code = 8.9 g/dL 6.3-8.2 H 3056139432) ALBUMIN (test code = 5.0 g/dL 3.5-5.0 9071229665) ALK PHOS (test code = 52 U/L 34-122 3320987750) ALTv (test code = 22 U/L 5-50 1742-6) AST(SGOT) (test code = 45 U/L 13-40 H 1878153759) eGFR (test code = 105.9 mL/min/1.73m2 CKD-EPI e GFR 79530-0) (2020). Assumin g creatinine has been stable day-to-d ay for at least th ree months, the eGF R indicates Categ ory G1 (>= 90 mL/min/1.73 m2) Lab Interpretation (test Abnormal code = 60798-0) [facility], [id number] 20:48:07 Test Item Value Reference Range Interpretation Comments LIPASE (test code = 1146031617) 134 U/L 0-220 Lab Interpretation (test code = Normal 85162-4) [facility] with [id number] 20:20:02 Test Item Value Reference Range Interpretation Comments WBC (test code = 6.91 See_Comment [Automated 7951-2) message] The sy stem which generated this result transmitted reference range : 4.20 - 10.70 10*3/?L. The reference range was not used to interpret this result as normal/abnormal . RBC (test code = 5.49 See_Comment [Automated 789-8) message] The sy stem which generated this result transmitted reference range : 4.26 - 5.52 10*6/?L. The reference range was not used to interpret this result as normal/abnormal . HGB (test code = 16.5 g/dL 12.2-16.4 H 718-7) HCT (test code = 47.5 % 38.4-49.3 4544-3) MCV (test code = 86.5 fL 81.7-95.6 787-2) MCH (test code = 30.1 pg 26.1-32.7 785-6) MCHC (test code = 34.7 g/dL 31.2-35.0 786-4) RDW-SD (test code = 40.0 fL 38.5-51.6 23795-4) RDW-CV (test code = 12.7 % 12.1-15.4 788-0) PLT (test code = 228 See_Comment [Automated 777-3) message] The sy stem which generated this result transmitted reference range : 150 - 328 10*3/ ?L. The reference r andrea was not used to interpret this result as normal/abnormal . MPV (test code = 9.5 fL 9.8-13.0 L 25116-3) NRBC/100 WBC (test 0.0 See_Comment [Automat ed code = 5305512840) message] The system which generated this result transmitted reference range : 0.0 - 10.0 /100 WBCs. The refer ence range was not u sed to interpret th is result as normal/abnormal . NRBC x10^3 (test code See_Comment [Auto mated = 4830255586) message] The s ystem which generated this result transmitted reference range : 10*3/?L. The reference range was not used to interpret this result as normal/abnormal . GRAN MAT (NEUT) % 46.9 % (test code = 770-8) IMM GRAN % (test code 0.30 % = 0961005583) LYMPH % (test code = 42.3 % 736-9) MONO % (test code = 9.8 % 5905-5) EOS % (test code = 0.4 % 713-8) BASO % (test code = 0.3 % 706-2) GRAN MAT x10^3(ANC) 3.24 10*3/uL 1.99-6.95 (test code = 5335018568) IMM GRAN x10^3 (test 0.00-0.06 code = 3262245382) LYMPH x10^3 (test code 2.92 10*3/uL 1.09-3.23 = 731-0) MONO x10^3 (test code 0.68 10*3/uL 0.36-1.02 = 742-7) EOS x10^3 (test code = 0.03 10*3/uL 0.06-0.53 L 711-2) BASO x10^3 (test code 0.01-0.09 = 704-7) Lab Interpretation Abnormal (test code = 67467-6) [facility] W/[id number] 08:28:00 [facility] : 1970 Sex: M Patient Name: MARTHA PUTNAM Unit No: [id number] EXAMS: CPT CODE: [id number] CT ABD PELVIS W/CONT 10194 EXAM: - CT ABD PELVIS W/CONT INDICATION: pancreatitis Location code:C3 TECHNIQUE: No oral contrast was given Axial CT images of the abdomen and pelvis were obtained after the use of intravenous contrast. No delayed phase images were obtained. Reconstructions - coronal and sagittal planes Automated exposure reduction (Auto mA/Smart mA) was utilized in compliance with ACR Image Wisely. Unless otherwise specified, incidental findings do not require dedicated imaging follow-up. COMPARISON: 09/14/2010 FINDINGS: Statements: None. Thoracic: Included images of the lower chest demonstrate no abnormalities. Hepatobiliary: Simple cyst less than 1 cm in size in the right hepatic lobe is similar. The gallbladder is normal. No biliary dilation. Pancreas: Normal. Spleen: Normal. Adrenals: Normal. Genitourinary: The kidneys are normal. No evidence of hydronephrosis. Evaluation of the bladder is limited, but no obvious bladder abnormality is present. Gastrointestinal: No bowel obstruction or perienteric inflammation. The appendix is normal. Vascular: No evidence of aneurysm or dissection. Lymphatics: No enlarged lymphnodes by CT size criteria. Bones/Soft Tissues: No acute osseous findings. No ventral hernias. Peritoneum/Other: No extraluminal fluid. IMPRESSION: 1. No acute abnormality. [facility] Ji NAME: MARTHA PUTNAM PHYS: [place] [address] : 1970 AGE: 52 SEX: MACCT NO: [id number] LOC: [place] PHONE #: [phone] EXAM DATE: 07/23/2023 STATUS: REG ER FAX #: [phone] RAD #: D/C DT PAGE 1 Signed Report (CONTINUED) Patient Name: MARTHA PUTNAM Unit No: [id number] EXAMS: CPT CODE: [id number] CT ABD PELVIS W/CONT 42222 (Continued) at 0828 Reported and signed by: Kiara Meza MD CC: Kristian Paul MD Technologist: Jovanni GREEN CTDI: DLP: Trnscrpt: 07/23/2023 (0828) [email or web address] [facility] NAME: MARTHA PUTNAM PHYS: [place] [address] : 1970 AGE: 52 SEX: M LOC: [place] PHONE #: [phone] EXAM DATE: 07/23/2023 STATUS: REG ER FAX #: [phone] RAD #: D/C DT PAGE 2 Signed Report Patient Name: MARTHA PUTNAM Unit No: [id number] EXAMS: CPT CODE: [id number] CT ABD PELVIS W/CONT 83500 (Continued) Orig Print D/T: S: 07/23/2023 (0831) [facility] NAME: MARTHA PUTNAM [address] PHYS: [place] [address] : 1970 AGE: 52 SEX: M LOC: [place] PHONE #: [phone] EXAM DATE: 07/23/2023 STATUS: REG ER FAX #: [phone] RAD #: D/C DT PAGE 3 Signed ReportURINALYSIS [id number] 06:32:00 Test Item Value Reference Range Interpretation Comments UA COLOR (test code = COLU) YELLOW YELLOW UA APPEARANCE (test code = CLEAR CLEAR APPU) UA GLUCOSE DIPSTICK (test code NORMAL MG/DL NORMAL = DGLUU) UA BILIRUBIN DIPSTICK (test NEGATIVE MG/DL NEGATIVE code = BILU) UA KETONE DIPSTICK (test code 5 MG/DL NEGATIVE = KETU) UA SPECIFIC GRAVITY (test code 1.025 1.003-1.030 N = SGU) UA BLOOD DIPSTICK (test code = 10 Lc/mm3 NEGATIVE A MAMIE) UA PH DIPSTICK (test code = 6.0 5.0-9.0 N MARYJANE) UA PROTEIN DIPSTICK (test code 30 MG/DL NEGATIVE A = PROU) UA UROBILINIOGEN DIPSTICK 4 MG/DL NORMAL A (test code = URO) UA NITRITE DIPSTICK (test code NEGATIVE NEGATIVE = MODESTO) UA LEUKOCYTE ESTERASE DIPSTICK NEGATIVE /mm3 NEGATIVE (test code = LEUU) SOURCE OF URINE: CLEAN CATCHUA [id number] 06:32:00 Test Item Value Reference Range Interpretation Comments UA RBC (test code = RBCU) 3-5 RBC/HPF 0-3 A UA WBC (test code = XWBCU) 0-3 WBC/HPF 0-5 UA EPITHELIAL CELLS (test code RARE EPI/HPF FEW = EPIU) UA BACTERIA (test code = FEW NONE XBACU) UA MUCUS (test code = MUCU) MODERATE #/LPF NONE A SOURCE OF URINE: CLEAN CATCHBASIC METABOLIC [id number] 06:31:00 Test Item Value Reference Range Interpretation Comments SODIUM (test code = 141 MMOL/L 137-145 N NA) POTASSIUM (test code 3.6 MMOL/L 3.5-5.1 N = K) CHLORIDE (test code 106 MMOL/L 98-107 N = CL) CARBON DIOXIDE (test 24 MMOL/L 22-30 N code = CO2) GLUCOSE (test code = 111 MG/DL 74-106 H GLU) BLOOD UREA NITROGEN 15 MG/DL 9-20 N (test code = BUN) GLOMERULAR > 60 The Glomerular FILTRATION RATE Filtration R ate [...] ag e is <18 years. CREATININE (test 1.20 MG/DL 0.66-1.25 N code = CREAT) CALCIUM (test code = 9.5 MG/DL 8.4-10.2 N CA) HEPATIC FUNCTION [id number] 06:31:00 Test Item Value Reference Range Interpretation Comments TOTAL PROTEIN 9.0 G/DL 6.2-7.6 H [facility] Clinical Diagnostic (test code = has made us casey re of PROT) newinformation regarding the potential i nterference ofEltrombopag ( a bone marrow stimulan t used to treatthrombocyt onmenia and aplastic anemia ) with specific assays on the Vitros 5600 of which Total Protein is one of thoseassays per formed in our lab.Interfe rence testing perform ed at Ortho determined that Eltrombopag does interfere with Vitros Total Protein asfollowsEltrom bopag Interference fo r Vitros Product Total Protein:======= Eltrombopag Max Observed Av g. BiasConcentrati on Concentration Concentration== ==== 2.5 mg/dl 6.0 g/dl +0.41 +0.34 3.5 mg/dl 6.0 g /dl +0.50 +0.45 5 mg/dl 6 .0 g/dl +0.73 +0.65 2.5 mg/dl 8.0 g/dl +0.44 +0.4 1 3.5 mg/dl 8.0 g/dl +0.55 +0.52 5 mg/dl 8.0 g/dl +0.86 +0.77 ALBUMIN (test 4.8 G/DL 3.5-5.0 N code = ALB) BILIRUBIN TOTAL 0.9 MG/DL 0.2-1.3 N Eltrombopag Interference (test code = for Vitros Prod uct TBil, BILT) BuBc: Assa y Eltrombopag Mikaela lyte/ Max Observed Avg. B ias Concentration C oncentration Concentration== ====TBil 7mg/dl TBil/ 1. 2mg/dl +0.23mg.dl +0.2 0mg/dlBuBc 3.5mg/dl Bu/0.8 mg/dl +0.25mg/dl +0.2 4mg/dlBuBc 7 mg/dl Bu/14.2mg /dl +0.38mg/dl +0.2 5mg/dlBuBc 5mg/dl Bc/0mg/d l +0.25mg/dl +0.15mg/dlBuBc 3.5mg/dl Bc/2.8mg/dl +0. 25mg/dl +0.23mg/dl BILIRUBIN DIRECT 0.0 MG/DL 0.0-0.3 N Eltrombopag Interference (test code = for Vitros Prod uct TBil, BILD) BuBc: Assa y Eltrombopag Mikaela lyte/ Max Observed Avg. B ias Concentration C oncentration Concentration== ====TBil 7mg/dl TBil/ 1. 2mg/dl +0.23mg.dl +0.2 0mg/dlBuBc 3.5mg/dl Bu/0.8 mg/dl +0.25mg/dl +0.2 4mg/dlBuBc 7 mg/dl Bu/14.2mg /dl +0.38mg/dl +0.2 5mg/dlBuBc 5mg/dl Bc/0mg/d l +0.25mg/dl +0.15mg/dlBuBc 3.5mg/dl Bc/2.8mg/dl +0. 25mg/dl +0.23mg/dl SGOT/AST (test 29 UNITS/L 17-59 N code = AST) SGPT/ALT (test 23 UNITS/L 0-49 N code = ALT) ALKALINE 57 UNITS/L 38-126 N PHOSPHATASE (test code = ALKP) [id number] 06:31:00 Test Item Value Reference Range Interpretation Comments LIPASE (test code = LIP) 94 UNITS/L 23-300 N [id number] 06:31:00 Test Item Value Reference Range Interpretation Comments TROPONIN-I (test code = TROPI) 0.019 NG/ML 0.012-0.033 N PROTHROMBIN [id number] 06:07:00 Test Item Value Reference Range Interpretation Comments PROTHROMBIN TIME 12.5 SECONDS 10.1-12.6 N PATIENT (test code = PTP) INTERNATIONAL NORMAL 1.1 0.86-1.14 N The INR is to be RATIO (test code = used only for INR) monitoring oral anticoagulantth erap y. INDICATION INR VALUE ---- ---- ---- -------1. Prophylaxis, de ep venous thrombos is, including high risk surgery. 2.0 - 3.0 2. Prophylaxis , deep venous thrombosis, hip surgery, treatm ent for deep venous thrombosis or pulmonary prevention of systemic emboli sm in patients wit h valvular heart disease, atrial fibrillation, tissue heart va lve, or acute myocar dial infarction. 2.0 - 3.0 3. Wastewater Design Engineer al prosthesis hear t valves, recurre nt systemic emboli sm. 3.0 - 4.5 CBC W/O [id number] 06:00:00 Test Item Value Reference Range Interpretation Comments WHITE BLOOD CELL (test code = 6.3 K/MM3 3.8-9.8 N WBC) RED BLOOD CELL (test code = 5.30 M/MM3 3.95-5.67 N RBC) HEMOGLOBIN (test code = HGB) 16.0 G/DL 12.4-16.7 N HEMATOCRIT (test code = HCT) 45.7 % 35.9-49.5 N MEAN CELL VOLUME (test code = 86 fL 81.7-96.1 N MCV) MEAN CELL HGB (test code = MCH) 30.2 pg 27.6-33.2 N MEAN CELL HGB CONCETRATION 35.0 % 32.9-35.5 N (test code = MCHC) RED CELL DISTRIBUTION WIDTH 12.9 % 12.1-15.2 N (test code = RDW) PLATELET COUNT (test code = 233 K/MM3 129-368 N PLT) NEUTROPHIL # (test code = NT#) 2.90 K/mm3 2.0-7.6 N IMMATURE GRANULOCYTE # (test 0.02 x10 3/uL 0-0.03 N code = IG#) LYMPHOCYTE # (test code = LY#) 2.61 K/mm3 1.0-3.8 N MONOCYTE # (test code = MO#) 0.68 K/mm3 0.1-0.8 N EOSINOPHIL # (test code = EO#) 0.04 K/mm3 0.0-0.2 N BASOPHIL # (test code = BA#) 0.02 K/mm3 0.0-0.2 N NUCLEATED RBC # (test code = 0.00 K/mm3 0.0-0.1 N NRBC#) Troponin [id number] 02:46:51 Test Item Value Reference Range Interpretation Comments TROPONIN I (test code = 0.017 ng/mL <=0.034 [id number]) KRYSTLE (test code = KRYSTLE) Reference (Normal) [...] biotin. Lab Interpretation Normal (test code = 67710-8) [id number] Test Item Value Reference Range Interpretation Comments NA (test code = 138 mmol/L 135-145 5348816830) K (test code = 3.7 mmol/L 3.5-5.0 2507740976) CL (test code = 106 mmol/L 98-108 1996483913) CO2 TOTAL (test code = 24 mmol/L 23-31 2942216145) AGAP (test code = 8 2-16 3621435149) BUN (test code = 11 mg/dL 7-23 7796139858) GLUCOSE (test code = 165 mg/dL 70-110 H 3987959023) CREATININE (test code = 0.89 mg/dL 0.60-1.25 7619652861) TOTAL BILI (test code = 0.2 mg/dL 0.1-1.1 9331212499) CALCIUM (test code = 9.3 mg/dL 8.6-10.6 4909506511) T PROTEIN (test code = 7.0 g/dL 6.3-8.2 5552026598) ALBUMIN (test code = 4.0 g/dL 3.5-5.0 5793157766) ALK PHOS (test code = 59 U/L 34-122 1636368234) ALTv (test code = 23 U/L 5-50 2-6) AST(SGOT) (test code = 27 U/L 13-40 5598949802) eGFR (test code = 90.5 mL/min/1.73m2 7423412091) KRYSTLE (test code = KRYSTLE) Association of [...] tests). Lab Interpretation Abnormal (test code = 94418-5) [facility] with [id number] 02:26:10 Test Item Value Reference Range Interpretation Comments WBC (test code = 5.78 See_Comment [Automated 6690-2) message] The sy stem which generated this result transmitted reference range : 4.20 - 10.70 10*3/?L. The reference range was not used to interpret this result as normal/abnormal . RBC (test code = 4.59 See_Comment [Automated 789-8) message] The sy stem [...] RDW-SD (test code = 38.6 fL 38.5-51.6 56048-3) RDW-CV (test code = 12.6 % 12.1-15.4 788-0) PLT (test code = 200 See_Comment [Automated 777-3) message] The sy stem which generated this result transmitted reference range : 150 - 328 10*3/ ?L. The reference r andrea was not used to interpret this result as normal/abnormal . MPV (test code = 9.6 fL 9.8-13.0 L 41891-6) NRBC/100 WBC (test 0.0 See_Comment [Automat ed code = 6316535476) message] The system which generated this result transmitted reference range : 0.0 - 10.0 /100 WBCs. The refer ence range was not u sed to interpret th is result as normal/abnormal . NRBC x10^3 (test code See_Comment [Auto mated = 8150367239) message] The s [place] which generated this result transmitted reference range : 10*3/?L. The reference range was not used to interpret this result as normal/abnormal . GRAN MAT (NEUT) % 36.8 % (test code = 770-8) IMM GRAN % (test code 0.20 % = 4747606367) LYMPH % (test code = 54.7 % 736-9) MONO % (test code = 7.1 % 5905-5) EOS % (test code = 0.9 % 713-8) BASO % (test code = 0.3 % 706-2) GRAN MAT x10^3(ANC) 2.13 10*3/uL 1.99-6.95 (test code = 8295411274) IMM GRAN x10^3 (test 0.00-0.06 code = 4950599856) LYMPH x10^3 (test code 3.16 10*3/uL 1.09-3.23 = 731-0) MONO x10^3 (test code 0.41 10*3/uL 0.36-1.02 = 742-7) EOS x10^3 (test code = 0.05 10*3/uL 0.06-0.53 L 711-2) BASO x10^3 (test code 0.01-0.09 = 704-7) Lab Interpretation Abnormal (test code = 35601-0) [facility]. METABOLIC PANEL ([id number])2023-07-03 10:47:01 Test Item Value Reference Range Interpretation Comments NA (test code = 138 mmol/L 135-145 4813669102) K (test code = 4.5 mmol/L 3.5-5.0 Slight 7963174704) hemolysis CL (test code = 103 mmol/L 98-108 4964555301) CO2 TOTAL (test code 23 mmol/L 23-31 = 1127024414) AGAP (test code = 12 2-16 3565088778) BUN (test code = 16 mg/dL 7-23 Slight 1089618491) hemolysis GLUCOSE (test code = 142 mg/dL 70-110 H 8601594629) CREATININE (test code 0.99 mg/dL 0.60-1.25 = 9986428002) TOTAL BILI (test code 1.2 mg/dL 0.1-1.1 H = 2850377363) CALCIUM (test code = 9.6 mg/dL 8.6-10.6 2690412647) T PROTEIN (test code 8.1 g/dL 6.3-8.2 = 0623584131) ALBUMIN (test code = 4.6 g/dL 3.5-5.0 2815692648) ALK PHOS (test code = 51 U/L 34-122 Slight 5849307384) hemolysis ALTv (test code = 26 U/L 5-50 1742-6) AST(SGOT) (test code 32 U/L 13-40 Slight = 3570237159) hemolysis eGFR (test code = 80.0 mL/min/1.73m2 3650704921) KRYSTLE (test code = KRYSTLE) Association of [...] tests). Lab Interpretation Abnormal (test code = 12405-0) [facility]01 Test Item Value Reference Range Interpretation Comments LIPASE (test code = 8046560787) 955 U/L 0-220 H Lab Interpretation (test code = Abnormal 77964-8) [facility] WITH [id number] 10:27:34 Test Item Value Reference Range Interpretation Comments WBC (test code = 6.60 See_Comment [Automated 6690-2) message] The sy stem which generated this result transmitted reference range : 4.20 - 10.70 10*3/?L. The reference range was not used to interpret this result as normal/abnormal . RBC (test code = 5.32 See_Comment [Automated 789-8) message] The sy stem which generated this result transmitted reference range : 4.26 - 5.52 10*6/?L. The reference range was not used to interpret this result as normal/abnormal . HGB (test code = 16.0 g/dL 12.2-16.4 718-7) HCT (test code = 46.4 % 38.4-49.3 4544-3) MCV (test code = 87.2 fL 81.7-95.6 787-2) MCH (test code = 30.1 pg 26.1-32.7 785-6) MCHC (test code = 34.5 g/dL 31.2-35.0 786-4) RDW-SD (test code = 39.4 fL 38.5-51.6 63777-7) RDW-CV (test code = 12.3 % 12.1-15.4 788-0) PLT (test code = 226 See_Comment [Automated 777-3) message] The sy stem which generated this result transmitted reference range : 150 - 328 10*3/ ?L. The reference r andrea was not used to interpret this result as normal/abnormal . MPV (test code = 9.6 fL 9.8-13.0 L 58955-2) NRBC/100 WBC (test 0.0 See_Comment [Automat ed code = 9812985694) message] The system which generated this result transmitted reference range : 0.0 - 10.0 /100 WBCs. The refer ence range was not u sed to interpret th is result as normal/abnormal . NRBC x10^3 (test code See_Comment [Auto mated = 9562709387) message] The s ystem which generated this result transmitted reference range : 10*3/?L. The reference range was not used to interpret this result as normal/abnormal . GRAN MAT (NEUT) % 54.9 % (test code = 770-8) IMM GRAN % (test code 0.20 % = 7924548885) LYMPH % (test code = 36.2 % 736-9) MONO % (test code = 7.9 % 5905-5) EOS % (test code = 0.5 % 713-8) BASO % (test code = 0.3 % 706-2) GRAN MAT x10^3(ANC) 3.63 10*3/uL 1.99-6.95 (test code = 0426744079) IMM GRAN x10^3 (test 0.00-0.06 code = 9917975458) LYMPH x10^3 (test code 2.39 10*3/uL 1.09-3.23 = 731-0) MONO x10^3 (test code 0.52 10*3/uL 0.36-1.02 = 742-7) EOS x10^3 (test code = 0.03 10*3/uL 0.06-0.53 L 711-2) BASO x10^3 (test code 0.01-0.09 = 704-7) Lab Interpretation Abnormal (test code = 55255-9) [facility] [id number] 00:06:00 [facility] 1970 Sex: M Patient Name: MARTHA PUTNAM Unit No: [id number] EXAMS: CPT CODE: [id number] CT ABD PELVIS W/CONT [id number] Reason: diffuse abd pain CT Scan of the Abdomen and Pelvis With Contrast Location Code M12 History: diffuse abd pain Technique: Axial and reconstructed coronal scans were performed on a helical scanner post IV contrast. Unless stated otherwise, there are no suspicious findings in any incidental incompletely characterized cystic lesion based on the ACR White Papers that would require further follow up per consensus recommendations. However, follow up may be indicated to completely characterize these cystic lesions based on patient risk factors. One or more of the following dose reduction techniques were used: Automated exposure control, adjustment of the mA and/or kV according to patient size, and/or utilization of iterative reconstruction technique. Findings: LIVER: Liver is hypodense consistent with steatosis. There is a too small to characterize hypodense lesion in the anterior segment of the right hepatic lobe. GALLBLADDER/BILIARY: No significant findings. PANCREAS: No significant findings. SPLEEN: No significant findings. ADRENALS: No significant findings. [...] Jennifer Bass MD CC: Kristian Gleason DO; [facility] Technologist: Cory SCHOFIELD Trscrpt Dt/ (000)[id number] Orig Print D/T: S: 07/02/2023 (0009)CTDI: DLP: [place] FSED NAME: MARTHA PUTNAM [address] [place] [address] PHYS: MANOLO. - Kristian Gleason [address] : 1970 AGE: 52 SEX: M [place], [place] [address] LOC: GayePER PHONE #: [phone] EXAM DATE: 07/01/2023 STATUS: REG ER FAX #: RAD NO: DC Dt: PAGE 1 Signed ReportTROP-I HIGH [id number] 23:55:00 Test Item Value Reference Range Interpretation [...] ponin from other clinical conditions, the Fourth [place] Defin ition of Myocardial Infa rction stresses clinic al assessment and demonstration o f a rise and/or fall in serial troponin result s above the upper refer ence limit.Results o f this assay method ma y be falsely depress ed orelevated if p atient is taking high dos es of Biotin. BASIC METABOLIC [id number] 23:55:00 Test Item Value Reference Range Interpretation [...] the recommended for cosmo for GFRby the [facility] on for Adults.The GFR will not calculate if th e sex is unknown or if thepatient's ag e is <18 years. CREATININE (test 1.12 MG/DL 0.60-1.00 H code = CREAT) CALCIUM (test code = 9.3 MG/DL 8.7-10.5 N CA) HEPATIC FUNCTION [id number] 23:55:00 Test Item Value Reference Range Interpretation [...] 50-136 N TOTAL (test code = ALKP) [id number] 23:55:00 Test Item Value Reference Range Interpretation Comments LIPASE (test code = 259 U/L 16-77 H New R eference Ranges LIP) of 16-77 U/L pl ease review revised from 73-393 U/L on 06/30/2023 CBC W/AUTO [id number] 23:24:00 Test Item Value Reference Range Interpretation [...] = BA#) 0.02 x10 3/uL 0.0-0.2 N [id number] 12:29:00 Test Item Value Reference Range Interpretation Comments LIPASE (test code = LIP) 73 Units/L 73-393 N [id number] 17:24:56 Test Item Value Reference Range Interpretation Comments LIPASE (test code = 5060702737) 283 U/L 0-220 H Lab Interpretation (test code = Abnormal 80305-4) [facility] (NA, K, CL, CO2, GLUCOSE, BUN, CREATININE, CA)2023-04-22 17:24:35 Test Item Value Reference Range Interpretation Comments NA (test code = 139 mmol/L 135-145 0680915309) K (test code = 4.0 mmol/L 3.5-5.0 2095645805) CL (test code = 106 mmol/L 98-108 0865246270) CO2 TOTAL (test code = 25 mmol/L 23-31 9672697866) AGAP (test code = 8 2-16 2084857865) BUN (test code = 21 mg/dL 7-23 9091344069) GLUCOSE (test code = 110 mg/dL 70-110 9142986631) CREATININE (test code = 1.06 mg/dL 0.60-1.25 4641875087) CALCIUM (test code = 8.1 mg/dL 8.6-10.6 L 3406066489) eGFR (test code = 74.0 mL/min/1.73m2 0209141320) KRYSTLE (test code = KRYSTLE) Association of [...] tests). Lab Interpretation Abnormal (test code = 48846-3) [facility] [id number] 13:57:28 Test Item Value Reference Range Interpretation Comments CK (test code = 9684497071) 635 U/L 33-194 H Lab Interpretation (test code = Abnormal 43539-8) [facility] (NA, K, CL, CO2, GLUCOSE, BUN, CREATININE, CA)2023-04-22 13:23:02 Test Item Value Reference Range Interpretation Comments NA (test code = 141 mmol/L 135-145 7789534713) K (test code = 4.0 mmol/L 3.5-5.0 3238510308) CL (test code = 107 mmol/L 98-108 6924501293) CO2 TOTAL (test code = 27 mmol/L 23-31 3689282236) AGAP (test code = 7 2-16 6620368928) BUN (test code = 22 mg/dL 7-23 1040978596) GLUCOSE (test code = 94 mg/dL 70-110 5009481262) CREATININE (test code = 1.26 mg/dL 0.60-1.25 H 6015845238) CALCIUM (test code = 8.3 mg/dL 8.6-10.6 L 8902054407) eGFR (test code = 60.6 mL/min/1.73m2 9931184029) KRYSTLE (test code = KRYSTLE) Association of [...] tests). Lab Interpretation Abnormal (test code = 93538-9) [facility]23-[facility]09 13:22:41 Test Item Value Reference Range Interpretation Comments LIPASE (test code = 2924196527) 897 U/L 0-220 H Lab Interpretation (test code = Abnormal 05683-6) [facility] MET[facility]OLIC PANEL (84381)2023-04-22 09:43:42 Test Item Value Reference Range Interpretation Comments NA (test code = 140 mmol/L 135-145 0479962997) K (test code = 3.7 mmol/L 3.5-5.0 0700640840) CL (test code = 103 mmol/L 98-108 6829574031) CO2 TOTAL (test code = 24 mmol/L 23-31 8974167537) AGAP (test code = 13 2-16 7006034285) BUN (test code = 24 mg/dL 7-23 H 5354497436) GLUCOSE (test code = 114 mg/dL 70-110 H 8933329935) CREATININE (test code = 1.42 mg/dL 0.60-1.25 H 0707811563) TOTAL BILI (test code = 0.9 mg/dL 0.1-1.6 5044182292) CALCIUM (test code = 9.5 mg/dL 8.6-10.6 5961999263) T PROTEIN (test code = 9.2 g/dL 6.3-8.2 H 7979590528) ALBUMIN (test code = 4.9 g/dL 3.5-5.0 8845760875) ALK PHOS (test code = 66 U/L 34-122 7086409598) ALTv (test code = 25 U/L 550 2-6) AST(SGOT) (test code = 37 U/L 13-40 6591047933) eGFR (test code = 52.8 mL/min/1.73m2 4385397813) KRYSTLE (test code = KRYSTLE) Association of [...] tests). Lab Interpretation Abnormal (test code = 48024-5) [facility] WITH [id number] 09:33:37 Test Item Value Reference Range Interpretation Comments WBC (test code = 8.53 See_Comment [Automated 7290-2) message] The sy stem which generated this result transmitted reference range : 4.20 - 10.70 10*3/?L. The reference range was not used to interpret this result as normal/abnormal . RBC (test code = 5.60 See_Comment H [Automated 789-8) message] The sy [...] RDW-SD (test code = 40.1 fL 38.5-51.6 10340-2) RDW-CV (test code = 13.0 % 12.1-15.4 788-0) PLT (test code = 267 See_Comment [Automated 777-3) message] The sy stem which generated this result transmitted reference range : 150 - 328 10*3/ ?L. The reference r andrea was not used to interpret this result as normal/abnormal . MPV (test code = 9.6 fL 9.8-13.0 L 95755-4) NRBC/100 WBC (test 0.0 See_Comment [Automat ed code = 5513392861) message] The system which generated this result transmitted reference range : 0.0 - 10.0 /100 WBCs. The refer ence range was not u sed to interpret th is result as normal/abnormal . NRBC x10^3 (test code See_Comment [Auto mated = 1269182180) message] The s ystem which generated this result transmitted reference range : 10*3/?L. The reference range was not used to interpret this result as normal/abnormal . GRAN MAT (NEUT) % 44.5 % (test code = 770-8) IMM GRAN % (test code 0.20 % = 1606730628) LYMPH % (test code = 43.4 % 736-9) MONO % (test code = 10.7 % 5905-5) EOS % (test code = 0.8 % 713-8) BASO % (test code = 0.4 % 706-2) GRAN MAT x10^3(ANC) 3.80 10*3/uL 1.99-6.95 (test code = 7264434714) IMM GRAN x10^3 (test 0.00-0.06 code = 0188469038) LYMPH x10^3 (test code 3.70 10*3/uL 1.09-3.23 H = 731-0) MONO x10^3 (test code 0.91 10*3/uL 0.36-1.02 = 742-7) EOS x10^3 (test code = 0.07 10*3/uL 0.06-0.53 711-2) BASO x10^3 (test code 0.03 10*3/uL 0.01-0.09 = 704-7) Lab Interpretation Abnormal (test code = 77076-8) [facility] [id number] 13:23:31 Test Item Value Reference Range Interpretation Comments TROPONIN I (test code = 0.020 ng/mL <=0.034 9609032874) KRYSTLE (test code = KRYSTLE) Reference (Normal) [...] biotin. Lab Interpretation Normal (test code = 75030-8) [facility] [id number] 13:23:31 Test Item Value Reference Range Interpretation Comments TROPONIN I (test code = 0.020 ng/mL <=0.034 4463368876) KRYSTLE (test code = KRYSTLE) Reference (Normal) [...] biotin. Lab Interpretation Normal (test code = 21462-0) [facility]. METABOLIC PANEL ([id number])2023-04-16 12:58:04 Test Item Value Reference Range Interpretation Comments NA (test code = 142 mmol/L 135-145 5256447293) K (test code = 4.0 mmol/L 3.5-5.0 3072758024) CL (test code = 105 mmol/L 98-108 4124750578) CO2 TOTAL (test code = 28 mmol/L 23-31 5777946037) AGAP (test code = 9 2-16 4584572187) BUN (test code = 11 mg/dL 7-23 6260997684) GLUCOSE (test code = 115 mg/dL 70-110 H 7721947615) CREATININE (test code = 0.85 mg/dL 0.60-1.25 1886860142) TOTAL BILI (test code = 0.4 mg/dL 0.1-1.2 3832615687) CALCIUM (test code = 9.2 mg/dL 8.6-10.6 8850648355) T PROTEIN (test code = 7.6 g/dL 6.3-8.2 1047267322) ALBUMIN (test code = 4.4 g/dL 3.5-5.0 5944964574) ALK PHOS (test code = 52 U/L 34-122 8207662632) ALTv (test code = 23 U/L 5-50 1742-6) AST(SGOT) (test code = 33 U/L 13-40 2179571453) eGFR (test code = 95.4 mL/min/1.73m2 9195946150) KRYSTLE (test code = KRYSTLE) Association of [...] tests). Lab Interpretation Abnormal (test code = 27056-4) [facility] 12:58:04 Test Item Value Reference Range Interpretation Comments LIPASE (test code = 3039261492) 492 U/L 0-220 H Lab Interpretation (test code = Abnormal 04094-5) [facility]OL[facility] (64406)2023-04-16 12:58:04 Test Item Value Reference Range Interpretation Comments NA (test code = 142 mmol/L 135-145 2238466069) K (test code = 4.0 mmol/L 3.5-5.0 4550535900) CL (test code = 105 mmol/L 98-108 5597299077) CO2 TOTAL (test code = 28 mmol/L 23-31 5943358260) AGAP (test code = 9 2-16 5071639364) BUN (test code = 11 mg/dL 7-23 9075763599) GLUCOSE (test code = 115 mg/dL 70-110 H 9920914890) CREATININE (test code = 0.85 mg/dL 0.60-1.25 1830927017) TOTAL BILI (test code = 0.4 mg/dL 0.1-1.7 0176992797) CALCIUM (test code = 9.2 mg/dL 8.6-10.6 3719233742) T PROTEIN (test code = 7.6 g/dL 6.3-8.2 1228198022) ALBUMIN (test code = 4.4 g/dL 3.5-5.0 0288609196) ALK PHOS (test code = 52 U/L 34-122 9590722501) ALTv (test code = 23 U/L 5-50 1742-6) AST(SGOT) (test code = 33 U/L 13-40 0407658984) eGFR (test code = 95.4 mL/min/1.73m2 6535211648) KRYSTLE (test code = KRYSTLE) Association of [...] tests). Lab Interpretation Abnormal (test code = 03375-9) [facility] 12:58:04 Test Item Value Reference Range Interpretation Comments LIPASE (test code = 2792808040) 492 U/L 0-220 H Lab Interpretation (test code = Abnormal 74641-7) [facility] [id number] 12:50:01 Test Item Value Reference Range Interpretation Comments WBC (test code = 6.75 See_Comment [Automated 5490-2) message] The sy stem which generated this result transmitted reference range : 4.20 - 10.70 10*3/?L. The reference range was not used to interpret this result as normal/abnormal . RBC (test code = 5.08 See_Comment [Automated 549-8) message] The sy stem which generated this [...] RDW-SD (test code = 41.4 fL 38.5-51.6 02725-2) RDW-CV (test code = 13.2 % 12.1-15.4 788-0) PLT (test code = 219 See_Comment [Automated 777-3) message] The sy stem which generated this result transmitted reference range : 150 - 328 10*3/ ?L. The reference r andrea was not used to interpret this result as normal/abnormal . MPV (test code = 9.5 fL 9.8-13.0 L 87405-1) NRBC/100 WBC (test 0.0 See_Comment [Automat ed code = 9707883933) message] The system which generated this result transmitted reference range : 0.0 - 10.0 /100 WBCs. The refer ence range was not u sed to interpret th is result as normal/abnormal . NRBC x10^3 (test code See_Comment [Auto mated = 9834156731) message] The s ystem which generated this result transmitted reference range : 10*3/?L. The reference range was not used to interpret this result as normal/abnormal . GRAN MAT (NEUT) % 46.9 % (test code = 770-8) IMM GRAN % (test code 0.10 % = 2202211280) LYMPH % (test code = 43.4 % 736-9) MONO % (test code = 8.4 % 5905-5) EOS % (test code = 0.9 % 713-8) BASO % (test code = 0.3 % 706-2) GRAN MAT x10^3(ANC) 3.16 10*3/uL 1.99-6.95 (test code = 2878897426) IMM GRAN x10^3 (test 0.00-0.06 code = 3667943724) LYMPH x10^3 (test code 2.93 10*3/uL 1.09-3.23 = 731-0) MONO x10^3 (test code 0.57 10*3/uL 0.36-1.02 = 742-7) EOS x10^3 (test code = 0.06 10*3/uL 0.06-0.53 711-2) BASO x10^3 (test code 0.01-0.09 = 704-7) Lab Interpretation Abnormal (test code = 74357-1) [facility] WITH [id number] 12:50:01 Test Item Value Reference Range Interpretation Comments WBC (test code = 6.75 See_Comment [Automated 7590-2) message] The sy stem which generated this result transmitted reference range : 4.20 - 10.70 10*3/?L. The reference range was not used to interpret this result as normal/abnormal . RBC (test code = 5.08 See_Comment [Automated 669-8) message] The sy stem which generated this [...] RDW-SD (test code = 41.4 fL 38.5-51.6 70726-8) RDW-CV (test code = 13.2 % 12.1-15.4 788-0) PLT (test code = 219 See_Comment [Automated 777-3) message] The sy stem which generated this result transmitted reference range : 150 - 328 10*3/ ?L. The reference r andrea was not used to interpret this result as normal/abnormal . MPV (test code = 9.5 fL 9.8-13.0 L 05613-4) NRBC/100 WBC (test 0.0 See_Comment [Automat ed code = 7497230831) message] The system which generated this result transmitted reference range : 0.0 - 10.0 /100 WBCs. The refer ence range was not u sed to interpret th is result as normal/abnormal . NRBC x10^3 (test code See_Comment [Auto mated = 7233026124) message] The s ystem which generated this result transmitted reference range : 10*3/?L. The reference range was not used to interpret this result as normal/abnormal . GRAN MAT (NEUT) % 46.9 % (test code = 770-8) IMM GRAN % (test code 0.10 % = 4252907191) LYMPH % (test code = 43.4 % 736-9) MONO % (test code = 8.4 % 5905-5) EOS % (test code = 0.9 % 713-8) BASO % (test code = 0.3 % 706-2) GRAN MAT x10^3(ANC) 3.16 10*3/uL 1.99-6.95 (test code = 3299181033) IMM GRAN x10^3 (test 0.00-0.06 code = 5205073820) LYMPH x10^3 (test code 2.93 10*3/uL 1.09-3.23 = 731-0) MONO x10^3 (test code 0.57 10*3/uL 0.36-1.02 = 742-7) EOS x10^3 (test code = 0.06 10*3/uL 0.06-0.53 711-2) BASO x10^3 (test code 0.01-0.09 = 704-7) Lab Interpretation Abnormal (test code = 98609-3) [facility]2023-02-13 21:02:35 Test Item Value Reference Range Interpretation Comments POCT GLU (test code = 4057785101) 118 mg/dL 70-110 H Lab Interpretation (test code = Abnormal 48908-3) [facility] WITH [id number] 05:51:48 Test Item Value Reference Range Interpretation Comments WBC (test code = 7.64 See_Comment [Automated 3689-2) message] The sy stem which generated this result transmitted reference range : 4.20 - 10.70 10*3/?L. The reference range was not used to interpret this result as normal/abnormal . RBC (test code = 5.07 See_Comment [Automated 835-8) message] The sy stem which generated this [...] RDW-SD (test code = 38.5 fL 38.5-51.6 30543-8) RDW-CV (test code = 12.5 % 12.1-15.4 788-0) PLT (test code = 216 See_Comment [Automated 332-3) message] The sy stem which generated this result transmitted reference range : 150 - 328 10*3/ ?L. The reference r andrea was not used to interpret this result as normal/abnormal . MPV (test code = 10.0 fL 9.8-13.0 88994-4) NRBC/100 WBC (test 0.0 See_Comment [Automat ed code = 4960321427) message] The system which generated this result transmitted reference range : 0.0 - 10.0 /100 WBCs. The refer ence range was not u sed to interpret th is result as normal/abnormal . NRBC x10^3 (test code See_Comment [Auto mated = 6125965554) message] The s ystem which generated this result transmitted reference range : 10*3/?L. The reference range was not used to interpret this result as normal/abnormal . SEG % (test code = 36 % 33-76 74638-9) LYMPH % (test code = 48 % 14-54 89417-7) MONO % (test code = 13 % 0-4 H 16602-3) EOS % (test code = 3 % 0-3 53575-9) ANC (test code = 2.75 10*3/uL 1.99-6.95 753-4) Lab Interpretation Abnormal (test code = 83456-2) [facility]. METABOLIC PANEL (91083)2022-12-09 05:24:19 Test Item Value Reference Range Interpretation Comments NA (test code = 139 mmol/L 135-145 7987584323) K (test code = 3.8 mmol/L 3.5-5.0 9354638824) CL (test code = 105 mmol/L 98-108 2805813964) CO2 TOTAL (test code = 24 mmol/L 23-31 0586230137) AGAP (test code = 10 2-16 3505923301) BUN (test code = 11 mg/dL 7-23 8009955519) GLUCOSE (test code = 115 mg/dL 70-110 H 1710001327) CREATININE (test code = 0.93 mg/dL 0.60-1.25 2087586889) TOTAL BILI (test code = 0.8 mg/dL 0.1-1.7 2225930619) CALCIUM (test code = 9.3 mg/dL 8.6-10.6 2310034016) T PROTEIN (test code = 8.0 g/dL 6.3-8.2 3997141059) ALBUMIN (test code = 4.5 g/dL 3.5-5.0 7818696714) ALK PHOS (test code = 50 U/L 34-122 1372503715) ALTv (test code = 22 U/L 5-50 1742-6) AST(SGOT) (test code = 36 U/L 13-40 3713722957) eGFR (test code = 86.0 mL/min/1.73m2 0590826749) KRYSTLE (test code = KRYSTLE) Association of [...] tests). Lab Interpretation Abnormal (test code = 69295-0) [facility] Test Item Value Reference Range Interpretation Comments LIPASE (test code = 5226901069) 271 U/L 0-220 H Lab Interpretation (test code = Abnormal 53312-9) [facility] with [id number] 22:09:52 Test Item Value Reference Range Interpretation [...] RDW-SD (test code = 39.2 fL 38.5-51.6 97980-6) RDW-CV (test code = 12.9 % 12.1-15.4 788-0) PLT (test code = See_Comment [Automated 777-3) message] The sy stem which generated this result transmitted reference range : 150 - 328 10*3/ ?L. The reference r andrea was not used to interpret this result as normal/abnormal . MPV (test code = 9.0 fL 9.8-13.0 L 12317-6) NRBC/100 WBC (test See_Comment [Automat ed code = [id number]) message] The system which generated this result transmitted reference range : 0.0 - 10.0 /100 WBCs. The refer ence range was not u sed to interpret th is result as normal/abnormal . NRBC x10^3 (test code See_Comment [Auto mated = [id number]) message] The s ystem which generated this result transmitted reference range : 10*3/?L. The reference range was not used to interpret this result as normal/abnormal . GRAN MAT (NEUT) % 35.3 % (test code = 770-8) IMM GRAN % (test code 0.00 % = 4502241689) LYMPH % (test code = 56.0 % 736-9) MONO % (test code = 7.9 % 5905-5) EOS % (test code = 0.4 % 713-8) BASO % (test code = 0.4 % 706-2) GRAN MAT x10^3(ANC) 1.87 10*3/uL 1.99-6.95 L (test code = 7738772411) IMM GRAN x10^3 (test 0.00-0.06 code = 9215490557) LYMPH x10^3 (test code 2.97 10*3/uL 1.09-3.23 = 731-0) MONO x10^3 (test code 0.42 10*3/uL 0.36-1.02 = 742-7) EOS x10^3 (test code = 0.06-0.53 L 711-2) BASO x10^3 (test code 0.01-0.09 = 704-7) Lab Interpretation Abnormal (test code = 84621-1) [facility] METABOLIC PANEL (NA, K, CL, CO2, GLUCOSE, BUN, CREATININE, CA)2022-10-12 00:25:13 Test Item Value Reference Range Interpretation Comments NA (test code = 136 mmol/L 135-145 3297139854) K (test code = 3.5 mmol/L 3.5-5.0 2379394941) CL (test code = 103 mmol/L 98-108 9406624944) CO2 TOTAL (test code = 26 mmol/L 23-31 0775248985) AGAP (test code = 2-16 7266742274) BUN (test code = 14 mg/dL 7-23 8556120612) GLUCOSE (test code = 157 mg/dL 70-110 H 2314171436) CREATININE (test code = 0.80 mg/dL 0.60-1.25 1636769515) CALCIUM (test code = 8.4 mg/dL 8.6-10.6 L 2679244998) eGFR (test code = mL/min/1.73m2 5265436169) KRYSTLE (test code = KRYSTLE) Association of [...] tests). Lab Interpretation Abnormal (test code = 55478-2) [facility]37961[facility] (ALB,T.PRO,BILI T,BU/BC,ALT,AST,ALK PHOS)2022-10-12 00:25:13 Test Item Value Reference Range Interpretation Comments TOTAL BILI (test code = 8331163972) 1.2 mg/dL 0.1-1.1 H BILI UNCON (test code = 4736143737) 1.0 mg/dL 0.1-1.1 BILI CONJ (test code = 3175964596) 0.0 mg/dL 0.0-0.3 T PROTEIN (test code = 6533818082) 7.1 g/dL 6.3-8.2 ALBUMIN (test code = 0553111621) 4.0 g/dL 3.5-5.0 ALK PHOS (test code = 3061713969) 59 U/L 34-122 ALTv (test code = 1742-6) 38 U/L 5-50 AST(SGOT) (test code = 3986816819) 61 U/L 13-40 H Lab Interpretation (test code = Abnormal 14355-7) [facility] Conf[facility] (Lab Only)2022-10-11 21:35:47 Test Item Value Reference Range Interpretation Comments ABO & RH (test code O Positive Performe d at [facility] = 20) Laboratory Serv [facility] [place] [address] s [id number] Free: [phone] A No. [id number] [facility]vineType and Screen - ONCE [id number] 21:25:51 Test Item Value Reference Range Interpretation Comments ABO & RH (test code O POSITIVE Performe d at [facility] = 20) Laboratory Serv [facility] [address] [place] [address] s 28688Wnkx Free: [phone] A No. [id number] IAT (test code = Negative Performed a t [facility] 1185) Laboratory Serv [facility] [address] [place] [address] s 14064Ggty Free: [phone] A No. [id number] [facility]CBC WITH [id number] 20:47:43 Test Item Value Reference Range Interpretation Comments WBC (test code = See_Comment [Automated 6724-2) message] The sy stem which generated this result transmitted reference range : 4.20 - 10.70 10*3/?L. The reference range was not used to interpret this result as normal/abnormal . RBC (test code = See_Comment [Automated 640-3) message] The sy stem which generated this [...] RDW-SD (test code = 41.1 fL 38.5-51.6 13055-1) RDW-CV (test code = 13.2 % 12.1-15.4 788-0) PLT (test code = See_Comment [Automated 777-3) message] The sy stem which generated this result transmitted reference range : 150 - 328 10*3/ ?L. The reference r andrea was not used to interpret this result as normal/abnormal . MPV (test code = 9.5 fL 9.8-13.0 L 12730-0) NRBC/100 WBC (test See_Comment [Automat ed code = 4567462422) message] The system which generated this result transmitted reference range : 0.0 - 10.0 /100 WBCs. The refer ence range was not u sed to interpret th is result as normal/abnormal . NRBC x10^3 (test code See_Comment [Auto mated = 7203820000) message] The s ystem which generated this result transmitted reference range : 10*3/?L. The reference range was not used to interpret this result as normal/abnormal . GRAN MAT (NEUT) % 38.2 % (test code = 770-8) IMM GRAN % (test code 0.00 % = 6395923929) LYMPH % (test code = 53.7 % 736-9) MONO % (test code = 7.5 % 5905-5) EOS % (test code = 0.3 % 713-8) BASO % (test code = 0.3 % 706-2) GRAN MAT x10^3(ANC) 2.46 10*3/uL 1.99-6.95 (test code = 1999851308) IMM GRAN x10^3 (test 0.00-0.06 code = 5112017907) LYMPH x10^3 (test code 3.46 10*3/uL 1.09-3.23 H = 731-0) MONO x10^3 (test code 0.48 10*3/uL 0.36-1.02 = 742-7) EOS x10^3 (test code = 0.06-0.53 L 711-2) BASO x10^3 (test code 0.01-0.09 = 704-7) Lab Interpretation Abnormal (test code = 16164-1) [facility]vineLIPID PANEL (05162)(TOTAL CHOLESTEROL, TRIGLYCERIDES, HDL)2022-10-11 20:32:44 Test Item Value Reference Range Interpretation Comments CHOL (test code = 195 mg/dL 120-200 3172160289) HDL (test code = 36 mg/dL See_Comment L [Automated message] 0899269455) The system NoteWagon generated this result transmit delvin reference range : >=40. The refer ence range was not u sed to interpret th is result as normal/abnormal . HDLC RATIO (test code = See_Comment H [Au tomated message] 1037656277) The system [employer] generated this result transmit delvin reference range : <=5.0. The refe rence range was not u sed to interpret th is result as normal/abnormal . TRIG (test code = 84 mg/dL 30-170 0818080490) LDL CHOL (test code = 142 mg/dL See_Comment [Auto mated message] 55988-0) The system [employer] generated this result transmit delvin reference range : <=160. The refe rence range was not u sed to interpret th is result as normal/abnormal . VLDL (test code = 17 mg/dL 5-60 6977651340) Lab Interpretation (test Abnormal code = 18534-8) [facility]vineN-TERMINAL [id number] 14:23:55 Test Item Value Reference Range Interpretation Comments NT-proBNP (test code See_Comment [Autom ated = 2366908393) message] The system which generated this result transmitted reference range : <=125. The reference range was not used to interpret this result as normal/abnormal . KRYSTLE (test code = KRYSTLE) Biotin has been reported to cause a negative bias, interpret results relative to patient's use of biotin. Lab Interpretation Normal (test code = 05218-6) [facility]vineACTIVATED PARTIAL THRMPLAS [id number] 14:23:25 Test Item Value Reference Range Interpretation Comments APTT Patient (test See_Comment [Automat ed code = 3173-2) message] The system which generated this result transmitted reference range : 23 - 38 Seconds . The reference range was not used to interpr et this result as normal/abnormal . KRYSTLE (test code = KRYSTLE) The [facility] patient population mean normal value for aPTT is 30 seconds. Lab Interpretation Normal (test code = 98517-5) [facility]vineLIPASE2023-01-28 14:23:05 Test Item Value Reference Range Interpretation Comments LIPASE (test code = 8792226883) 502 U/L 0-220 H Lab Interpretation (test code = Abnormal 85509-2) [facility]. METABOLIC PANEL (07949)2022-10-11 14:23:05 Test Item Value Reference Range Interpretation Comments NA (test code = 139 mmol/L 135-145 9984504749) K (test code = 5.0 mmol/L 3.5-5.0 Slight 5234819612) hemolysis CL (test code = 103 mmol/L 98-108 5103593004) CO2 TOTAL (test code 28 mmol/L 23-31 = 7888438256) AGAP (test code = 2-16 9112953425) BUN (test code = 17 mg/dL 7-23 Slight 4324557841) hemolysis GLUCOSE (test code = 103 mg/dL 70-110 9934414029) CREATININE (test code 0.80 mg/dL 0.60-1.25 = 6990902231) TOTAL BILI (test code 1.6 mg/dL 0.1-1.1 H = 2655154583) CALCIUM (test code = 9.0 mg/dL 8.6-10.6 4313552896) T PROTEIN (test code 8.4 g/dL 6.3-8.2 H = 0817325402) ALBUMIN (test code = 4.8 g/dL 3.5-5.0 4355916938) ALK PHOS (test code = 57 U/L 34-122 Slight 2672555514) hemolysis ALTv (test code = 49 U/L 5-50 1742-6) AST(SGOT) (test code 77 U/L 13-40 H Slight = 6275570297) hemolysis eGFR (test code = mL/min/1.73m2 8263339965) KRYSTLE (test code = KRYSTLE) Association of [...] tests). Lab Interpretation Abnormal (test code = 22244-5) [facility]vineMELISSA [id number] 14:23:05 Test Item Value Reference Interpretation Comments Range TROPONIN I (test 0.018 ng/mL See_Comment [Automated code = 7765371455) message] The system which generated this result [...] biotin. Lab Interpretation Normal (test code = 47723-3) [facility]vinePROTHROMBIN TIME / [id number] 14:20:24 Test Item Value Reference Range Interpretation [...] tions. Lab Interpretation (test Normal code = 93466-1) [facility]vineCB WITH [id number] 13:55:05 Test Item Value Reference Range Interpretation Comments WBC (test code = See_Comment [Automated 0790-2) message] The sy stem which generated this result transmitted reference range : 4.20 - 10.70 10*3/?L. The reference range was not used to interpret this result as normal/abnormal . RBC (test code = See_Comment [Automated 159-8) message] The sy stem which generated this [...] RDW-SD (test code = 40.4 fL 38.5-51.6 92197-0) RDW-CV (test code = 13.0 % 12.1-15.4 788-0) PLT (test code = See_Comment [Automated 777-3) message] The sy stem which generated this result transmitted reference range : 150 - 328 10*3/ ?L. The reference r andrea was not used to interpret this result as normal/abnormal . MPV (test code = 9.1 fL 9.8-13.0 L 02548-7) NRBC/100 WBC (test See_Comment [Automat ed code = 5764956622) message] The system which generated this result transmitted reference range : 0.0 - 10.0 /100 WBCs. The refer ence range was not u sed to interpret th is result as normal/abnormal . NRBC x10^3 (test code See_Comment [Auto mated = 0293333433) message] The s ystem which generated this result transmitted reference range : 10*3/?L. The reference range was not used to interpret this result as normal/abnormal . GRAN MAT (NEUT) % 53.2 % (test code = 770-8) IMM GRAN % (test code 0.10 % = 7669729799) LYMPH % (test code = 36.6 % 736-9) MONO % (test code = 9.3 % 5905-5) EOS % (test code = 0.5 % 713-8) BASO % (test code = 0.3 % 706-2) GRAN MAT x10^3(ANC) 4.25 10*3/uL 1.99-6.95 (test code = 2310572362) IMM GRAN x10^3 (test 0.00-0.06 code = 7230325560) LYMPH x10^3 (test code 2.92 10*3/uL 1.09-3.23 = 731-0) MONO x10^3 (test code 0.74 10*3/uL 0.36-1.02 = 742-7) EOS x10^3 (test code = 0.04 10*3/uL 0.06-0.53 L 711-2) BASO x10^3 (test code 0.01-0.09 = 704-7) Lab Interpretation Abnormal (test code = 28670-3) [facility]. METABOLIC PANEL (38706)2022-06-09 13:23:22 Test Item Value Reference Range Interpretation Comments NA (test code = 138 mmol/L 135-145 8194008710) K (test code = 4.5 mmol/L 3.5-5 5013816638) CL (test code = 106 mmol/L 98-108 2095792418) CO2 TOTAL (test code 24 mmol/L 23-31 = 5065876172) AGAP (test code = 2-16 0420209000) BUN (test code = 18 mg/dL 7-23 5713968060) GLUCOSE (test code = 97 mg/dL 70-110 9412043137) CREATININE (test code 0.98 mg/dL 0.6-1.25 = 2025744322) TOTAL BILI (test code 0.5 mg/dL 0.1-1.1 = 1485102326) CALCIUM (test code = 9.3 mg/dL 8.6-10.6 3430907632) T PROTEIN (test code 7.3 g/dL 6.3-8.2 = 5045974120) ALBUMIN (test code = 4.5 g/dL 3.5-5 1664784987) ALK PHOS (test code = 65 U/L 34-122 8187981964) ALTv (test code = 27 U/L 5-50 1742-6) AST(SGOT) (test code 33 U/L 13-40 = 5327441027) eGFR (test code = mL/min/1.73m2 1591960217) KRYSTLE (test code = KRYSTLE) Association of [...] [facility] 13:23:01 Test Item Value Reference Range Interpretation Comments LIPASE (test code = 4147990300) 596 U/L 0-220 H Lab Interpretation (test code = Abnormal 60135-5) [facility] WITH [id number] 13:09:00 Test Item Value Reference Range Interpretation Comments WBC (test code = See_Comment [Automated 0726-2) message] The sy stem which generated this result transmitted reference range : 4.20 - 10.70 10*3/?L. The reference range was not used to interpret this result as normal/abnormal . RBC (test code = See_Comment [Automated 103-8) message] The sy stem which generated this [...] (test code = 38.3 fL 38.5-51.6 L 43854-0) RDW-CV (test code = 12.3 % 12.1-15.4 788-0) PLT (test code = See_Comment [Automated 777-3) message] The sy stem which generated this result transmitted reference range : 150 - 328 10*3/ ?L. The reference r andrea was not used to interpret this result as normal/abnormal . MPV (test code = 9.2 fL 9.8-13 L 37559-0) NRBC/100 WBC (test See_Comment [Automat ed code = 9177550250) message] The system which generated this result transmitted reference range : 0.0 - 10.0 /100 WBCs. The refer ence range was not u sed to interpret th is result as normal/abnormal . NRBC x10^3 (test code See_Comment [Auto mated = 0555537383) message] The s ystem which generated this result transmitted reference range : 10*3/?L. The reference range was not used to interpret this result as normal/abnormal . GRAN MAT (NEUT) % 47.3 % (test code = 770-8) IMM GRAN % (test code 0.30 % = 5846674156) LYMPH % (test code = 43.8 % 736-9) MONO % (test code = 7.8 % 5905-5) EOS % (test code = 0.5 % 713-8) BASO % (test code = 0.3 % 706-2) GRAN MAT x10^3(ANC) 3.04 10*3/uL 1.99-6.95 (test code = 0418539729) IMM GRAN x10^3 (test 0-0.06 code = 3461370203) LYMPH x10^3 (test code 2.81 10*3/uL 1.09-3.23 = 731-0) MONO x10^3 (test code 0.50 10*3/uL 0.36-1.02 = 742-7) EOS x10^3 (test code = 0.03 10*3/uL 0.06-0.53 L 711-2) BASO x10^3 (test code 0.01-0.09 = 704-7) Lab Interpretation Abnormal (test code = 07041-6) [facility] METABOLIC PANEL (NA, K, CL, CO2, GLUCOSE, BUN, CREATININE, CA)2021-11-01 10:40:12 Test Item Value Reference Range Interpretation Comments NA (test code = 136 mmol/L 135-145 6967986833) K (test code = 4.2 mmol/L 3.5-5.0 7565153537) CL (test code = 104 mmol/L 98-108 8276353235) CO2 TOTAL (test code = 31 mmol/L 23-31 6230234598) AGAP (test code = 2-16 L 4220557042) BUN (test code = 15 mg/dL 7-23 2932455462) GLUCOSE (test code = 91 mg/dL 70-110 7145494764) CREATININE (test code = 0.96 mg/dL 0.60-1.25 7127686301) CALCIUM (test code = 8.5 mg/dL 8.6-10.6 L 5643102022) eGFR (test code = mL/min/1.73m2 3162436687) KRYSTLE (test code = KRYSTLE) Association of [...] tests). Lab Interpretation Abnormal (test code = 01665-1) [facility]vineMAGNESIUM2022-02-18 10:40:12 Test Item Value Reference Range Interpretation Comments MAGNESIUM (test code = 9325528389) 1.7 mg/dL 1.7-2.4 Lab Interpretation (test code = Normal 80393-9) [facility]vinePHOSPHORUS2022-02-18 10:39:52 Test Item Value Reference Range Interpretation Comments PHOSPHORUS (test code = 7574737596) 4.4 mg/dL 2.5-5.0 Lab Interpretation (test code = Normal 39566-8) [facility]vineCB WITH [id number] 10:25:11 Test Item Value Reference Range Interpretation Comments WBC (test code = See_Comment [Automated 7490-2) message] The sy stem which generated this result transmitted reference range : 4.20 - 10.70 10*3/?L. The reference range was not used to interpret this result as normal/abnormal . RBC (test code = See_Comment [Automated 731-8) message] The sy stem which generated this [...] RDW-SD (test code = 38.5 fL 38.5-51.6 15062-0) RDW-CV (test code = 12.3 % 12.1-15.4 788-0) PLT (test code = See_Comment [Automated 147-3) message] The sy stem which generated this result transmitted reference range : 150 - 328 10*3/ ?L. The reference r andrea was not used to interpret this result as normal/abnormal . MPV (test code = 9.6 fL 9.8-13.0 L 69140-7) NRBC/100 WBC (test See_Comment [Automat ed code = 6920800561) message] The system which generated this result transmitted reference range : 0.0 - 10.0 /100 WBCs. The refer ence range was not u sed to interpret th is result as normal/abnormal . NRBC x10^3 (test code <0.01 See_Comment [Auto mated = 2979741944) message] The s ystem which generated this result transmitted reference range : 10*3/?L. The reference range was not used to interpret this result as normal/abnormal . GRAN MAT (NEUT) % 49.5 % (test code = 770-8) IMM GRAN % (test code 0.30 % = 5263328167) LYMPH % (test code = 39.4 % 736-9) MONO % (test code = 9.7 % 5905-5) EOS % (test code = 0.8 % 713-8) BASO % (test code = 0.3 % 706-2) GRAN MAT x10^3(ANC) 3.13 10*3/uL 1.99-6.95 (test code = 0727193437) IMM GRAN x10^3 (test <0.03 0.00-0.06 code = 8777200911) LYMPH x10^3 (test code 2.49 10*3/uL 1.09-3.23 = 731-0) MONO x10^3 (test code 0.61 10*3/uL 0.36-1.02 = 742-7) EOS x10^3 (test code = 0.05 10*3/uL 0.06-0.53 L 711-2) BASO x10^3 (test code <0.03 0.01-0.09 = 704-7) Lab Interpretation Abnormal (test code = 58567-8) [facility]vineN-TERMINAL [id number] 17:32:56 Test Item Value Reference Range Interpretation Comments NT-proBNP (test code 13 pg/mL See_Comment [Autom ated = 9908244776) message] The system which generated this result transmitted reference range : <=125. The reference range was not used to interpret this result as normal/abnormal . KRYSTLE (test code = KRYSTLE) Biotin has been reported to cause a negative bias, interpret results relative to patient's use of biotin. Lab Interpretation Normal (test code = 44515-5) [facility]vineN-TERMINAL [id number] 10:50:49 Test Item Value Reference Range Interpretation Comments NT-proBNP (test code <11 See_Comment [Autom ated = 7558295310) message] The system which generated this result transmitted reference range : <=125 pg/mL. Th e reference range was not used to interpret this result as normal/abnormal . KRYSTLE (test code = KRYSTLE) Biotin has been reported to cause a negative bias, interpret results relative to patient's use of biotin. Lab Interpretation Normal (test code = 35644-0) [facility]vineTROPONIN [id number] 10:36:56 Test Item Value Reference Interpretation Comments Range TROPONIN I (test 0.004 ng/mL See_Comment [Automated code = 6654240854) message] The system which generated this result [...] biotin. Lab Interpretation Normal (test code = 63836-2) [facility]. METABOLIC PANEL (77729)2021-10-31 10:33:50 Test Item Value Reference Range Interpretation Comments NA (test code = 139 mmol/L 135-145 0284479127) K (test code = 4.0 mmol/L 3.5-5.0 5818800804) CL (test code = 109 mmol/L 98-108 H 3208871996) CO2 TOTAL (test code = 27 mmol/L 23-31 7817213973) AGAP (test code = 2-16 8511737240) BUN (test code = 16 mg/dL 7-23 5747169778) GLUCOSE (test code = 97 mg/dL 70-110 5318014660) CREATININE (test code = 1.00 mg/dL 0.60-1.25 9390027202) TOTAL BILI (test code = 1.0 mg/dL 0.1-1.3 1506353965) CALCIUM (test code = 8.7 mg/dL 8.6-10.6 6475082245) T PROTEIN (test code = 7.9 g/dL 6.3-8.2 2685545114) ALBUMIN (test code = 4.4 g/dL 3.5-5.0 0720641713) ALK PHOS (test code = 60 U/L 34-122 7621190158) ALTv (test code = 56 U/L 5-50 H 1742-6) AST(SGOT) (test code = 49 U/L 13-40 H 8595459165) eGFR (test code = mL/min/1.73m2 8590652928) KRYSTLE (test code = KRYSTLE) Association of [...] tests). Lab Interpretation Abnormal (test code = 47522-8) [facility] GrapevineMagnesium [id number] 10:25:32 Test Item Value Reference Range Interpretation Comments MAGNESIUM (test code = 6357765442) 1.8 mg/dL 1.7-2.4 Lab Interpretation (test code = Normal 87719-3) [facility]vinePHOSPHORUS2022-02-17 10:25:12 Test Item Value Reference Range Interpretation Comments PHOSPHORUS (test code = 3579501938) 3.9 mg/dL 2.5-5.0 Lab Interpretation (test code = Normal 17603-0) [facility]vineCREATINE [id number] 10:24:52 Test Item Value Reference Range Interpretation Comments CK (test code = 0742139094) 215 U/L 33-194 H Lab Interpretation (test code = Abnormal 14838-6) [facility] G[facility]vineCBC with [id number] 10:18:09 Test Item Value Reference Range Interpretation Comments WBC (test code = See_Comment [Automated 8399-2) message] The sy stem which generated this result transmitted reference range : 4.20 - 10.70 10*3/?L. The reference range was not used to interpret this result as normal/abnormal . RBC (test code = See_Comment [Automated 511-8) message] The sy stem which generated this [...] RDW-SD (test code = 41.3 fL 38.5-51.6 00503-7) RDW-CV (test code = 13.0 % 12.1-15.4 788-0) PLT (test code = See_Comment [Automated 777-3) message] The sy stem which generated this result transmitted reference range : 150 - 328 10*3/ ?L. The reference r andrea was not used to interpret this result as normal/abnormal . MPV (test code = 10.0 fL 9.8-13.0 79355-6) NRBC/100 WBC (test See_Comment [Automat ed code = 5103147341) message] The system which generated this result transmitted reference range : 0.0 - 10.0 /100 WBCs. The refer ence range was not u sed to interpret th is result as normal/abnormal . NRBC x10^3 (test code <0.01 See_Comment [Auto mated = 3104572097) message] The s ystem which generated this result transmitted reference range : 10*3/?L. The reference range was not used to interpret this result as normal/abnormal . GRAN MAT (NEUT) % 46.4 % (test code = 770-8) IMM GRAN % (test code 0.20 % = 8855728625) LYMPH % (test code = 44.0 % 736-9) MONO % (test code = 8.3 % 5905-5) EOS % (test code = 0.7 % 713-8) BASO % (test code = 0.4 % 706-2) GRAN MAT x10^3(ANC) 3.73 10*3/uL 1.99-6.95 (test code = 8182400044) IMM GRAN x10^3 (test <0.03 0.00-0.06 code = 7615669733) LYMPH x10^3 (test code 3.55 10*3/uL 1.09-3.23 H = 731-0) MONO x10^3 (test code 0.67 10*3/uL 0.36-1.02 = 742-7) EOS x10^3 (test code = 0.06 10*3/uL 0.06-0.53 711-2) BASO x10^3 (test code 0.03 10*3/uL 0.01-0.09 = 704-7) Lab Interpretation Abnormal (test code = 08458-5) [facility]rapevinePROTHROMBIN TIME / [id number] 10:18:09 Test Item Value Reference Range Interpretation [...] tions. Lab Interpretation (test Normal code = 74661-6) [facility]vineTROPONIN [id number] 07:43:50 Test Item Value Reference Interpretation Comments Range TROPONIN I (test 0.005 ng/mL See_Comment [Automated code = 7363378452) message] The system which generated this result [...] biotin. Lab Interpretation Normal (test code = 13218-5) [facility]vineCOMP. METABOLIC PANEL (13806)2021-10-30 20:56:25 Test Item Value Reference Range Interpretation Comments NA (test code = 139 mmol/L 135-145 9698566973) K (test code = 4.8 mmol/L 3.5-5.0 8936318329) CL (test code = 105 mmol/L 98-108 5916480938) CO2 TOTAL (test code = 26 mmol/L 23-31 0595852013) AGAP (test code = 2-16 3446054169) BUN (test code = 18 mg/dL 7-23 1154960446) GLUCOSE (test code = 135 mg/dL 70-110 H 8083858294) CREATININE (test code = 0.98 mg/dL 0.60-1.25 6834046678) TOTAL BILI (test code = 0.8 mg/dL 0.1-1.0 1089544199) CALCIUM (test code = 10.0 mg/dL 8.6-10.6 3520211372) T PROTEIN (test code = 10.3 g/dL 6.3-8.2 H 4152574797) ALBUMIN (test code = 5.5 g/dL 3.5-5.0 H 8096905379) ALK PHOS (test code = 74 U/L 34-122 0194322381) ALTv (test code = 69 U/L 5-50 H 1742-6) AST(SGOT) (test code = 59 U/L 13-40 H 2419768427) eGFR (test code = mL/min/1.73m2 4489367310) KRYSTLE (test code = KRYSTLE) Association of [...] tests). Lab Interpretation Abnormal (test code = 79436-7) [facility]05 Test Item Value Reference Range Interpretation Comments LIPASE (test code = 4165945441) 70 U/L 0-220 Lab Interpretation (test code = Normal 88242-5) [facility] [id number] 20:34:20 Test Item Value Reference Range Interpretation [...] RDW-SD (test code = 40.6 fL 38.5-51.6 19980-2) RDW-CV (test code = 12.8 % 12.1-15.4 788-0) PLT (test code = See_Comment [Automated 777-3) message] The sy stem which generated this result transmitted reference range : 150 - 328 10*3/ ?L. The reference r andrea was not used to interpret this result as normal/abnormal . MPV (test code = 9.2 fL 9.8-13.0 L 26784-6) NRBC/100 WBC (test See_Comment [Automat ed code = 7654213723) message] The system which generated this result transmitted reference range : 0.0 - 10.0 /100 WBCs. The refer ence range was not u sed to interpret th is result as normal/abnormal . NRBC x10^3 (test code <0.01 See_Comment [Auto mated = 8431145108) message] The s ystem which generated this result transmitted reference range : 10*3/?L. The reference range was not used to interpret this result as normal/abnormal . GRAN MAT (NEUT) % 67.1 % (test code = 770-8) IMM GRAN % (test code 0.40 % = 0644337626) LYMPH % (test code = 24.5 % 736-9) MONO % (test code = 7.6 % 5905-5) EOS % (test code = 0.1 % 713-8) BASO % (test code = 0.3 % 706-2) GRAN MAT x10^3(ANC) 7.34 10*3/uL 1.99-6.95 H (test code = 6363092496) IMM GRAN x10^3 (test 0.04 10*3/uL 0.00-0.06 code = 0365578058) LYMPH x10^3 (test code 2.67 10*3/uL 1.09-3.23 = 731-0) MONO x10^3 (test code 0.83 10*3/uL 0.36-1.02 = 742-7) EOS x10^3 (test code = <0.03 0.06-0.53 L 711-2) BASO x10^3 (test code 0.03 10*3/uL 0.01-0.09 = 704-7) Lab Interpretation Abnormal (test code = 49689-7) [facility] [id number] 05:55:54 Test Item Value Reference Range Interpretation Comments CK (test code = 2099021446) 3682 U/L 33-194 H Lab Interpretation (test code = Abnormal 95051-2) [facility] [id number] 05:55:54 Test Item Value Reference Range Interpretation Comments CK (test code = 8246018703) 3682 U/L 33-194 H Lab Interpretation (test code = Abnormal 70912-4) [facility] (NA, K, CL, CO2, GLUCOSE, BUN, CREATININE, CA)2021-05-24 05:02:27 Test Item Value Reference Range Interpretation Comments NA (test code = 137 mmol/L 135-145 9039530938) K (test code = 3.6 mmol/L 3.5-5.0 7342478266) CL (test code = 105 mmol/L 98-108 0426526708) CO2 TOTAL (test code = 23 mmol/L 23-31 7642999880) AGAP (test code = 2-16 0522848361) BUN (test code = 26 mg/dL 7-23 H 4809329635) GLUCOSE (test code = 95 mg/dL 70-110 7448722262) CREATININE (test code = 1.31 mg/dL 0.60-1.25 H 7951220254) CALCIUM (test code = 8.6 mg/dL 8.6-10.6 1791311597) eGFR (test code = mL/min/1.73m2 5213339873) KRYSTLE (test code = KRYSTLE) Association of [...] tests). Lab Interpretation Abnormal (test code = 05767-2) [facility] METABOLIC PANEL (NA, K, CL, CO2, GLUCOSE, BUN, CREATININE, CA)2021-05-24 05:02:27 Test Item Value Reference Range Interpretation Comments NA (test code = 137 mmol/L 135-145 1015676812) K (test code = 3.6 mmol/L 3.5-5.0 9389513549) CL (test code = 105 mmol/L 98-108 9883168996) CO2 TOTAL (test code = 23 mmol/L 23-31 6410434242) AGAP (test code = 2-16 6370567256) BUN (test code = 26 mg/dL 7-23 H 5392354112) GLUCOSE (test code = 95 mg/dL 70-110 6934975265) CREATININE (test code = 1.31 mg/dL 0.60-1.25 H 4817573072) CALCIUM (test code = 8.6 mg/dL 8.6-10.6 9296184252) eGFR (test code = mL/min/1.73m2 6887922725) KRYSTLE (test code = KRYSTLE) Association of [...] tests). Lab Interpretation Abnormal (test code = 88016-8) [facility] [id number] 02:56:10 Test Item Value Reference Interpretation Comments Range TROPONIN I (test 0.004 ng/mL See_Comment [Automated code = 5183670960) message] The system which generated this result [...] biotin. Lab Interpretation Normal (test code = 63450-0) [facility] [id number] 02:56:10 Test Item Value Reference Interpretation Comments Range TROPONIN I (test 0.004 ng/mL See_Comment [Automated code = 8382142639) message] The system which generated this result [...] biotin. Lab Interpretation Normal (test code = 11220-7) [facility] [id number] 02:41:54 Test Item Value Reference Range Interpretation Comments CK (test code = 4024377979) 4607 U/L 33-194 H Lab Interpretation (test code = Abnormal 95356-1) [facility] [id number] 02:41:54 Test Item Value Reference Range Interpretation Comments CK (test code = 8269238131) 4607 U/L 33-194 H Lab Interpretation (test code = Abnormal 79732-0) [facility] [id number] 02:33:28 Test Item Value Reference Range Interpretation Comments NT-proBNP (test code 14 pg/mL See_Comment [Autom ated = 3977435729) message] The system which generated this result transmitted reference range : <=125. The reference range was not used to interpret this result as normal/abnormal . KYRSTLE (test code = KRYSTLE) Biotin has been reported to cause a negative bias, interpret results relative to patient's use of biotin. Lab Interpretation Normal (test code = 86489-6) [facility] [id number] 02:33:28 Test Item Value Reference Range Interpretation Comments NT-proBNP (test code 14 pg/mL See_Comment [Autom ated = 2686246936) message] The system which generated this result transmitted reference range : <=125. The reference range was not used to interpret this result as normal/abnormal . KRYSTLE (test code = KRYSTLE) Biotin has been reported to cause a negative bias, interpret results relative to patient's use of biotin. Lab Interpretation Normal (test code = 47730-9) [facility]2021-09-10 02:29:35 Test Item Value Reference Range Interpretation Comments APPEARANCE (test code = Clear Clear 6009658674) COLOR (test code = Yellow Yellow 5841307744) PH (test code = 4.8-8.0 5765821621) SP GRAVITY (test code = 1.003-1.030 6249748690) GLU U QUAL (test code = Normal Normal 2256035559) BLOOD (test code = Negative Negative 8508908940) KETONES (test code = Negative Negative 8096471934) PROTEIN (test code = Negative Negative 2887-8) UROBILIN (test code = 2.0 mg/dL Normal A 6933331405) BILIRUBIN (test code = Negative Negative 5189946095) NITRITE (test code = Negative Negative 2373242243) LEUK MO (test code = Negative Negative 2320301590) RBC/HPF (test code = See_Comment [Autom ated message] 0503147449) The system NoteWagon generated this result transmit delvin reference range : 0 - 3 HPF. The refe rence range was not u sed to interpret th is result as normal/abnormal . WBC/HPF (test code = See_Comment [Autom ated message] 1433143361) The system NoteWagon generated this result transmit delvin reference range : 0 - 5 HPF. The refe rence range was not u sed to interpret th is result as normal/abnormal . BACTERIA (test code = Negative Negative 2282300399) MUCOUS (test code = Slight Negative LPF A 4073745668) SQ EPITH (test code = <1 HPF 7405004188) Lab Interpretation (test Abnormal code = 32756-8) [facility]2021-09-10 02:29:35 Test Item Value Reference Range Interpretation Comments APPEARANCE (test code = Clear Clear 9877729637) COLOR (test code = Yellow Yellow 9835357727) PH (test code = 4.8-8.0 4062619921) SP GRAVITY (test code = 1.003-1.030 7316414448) GLU U QUAL (test code = Normal Normal 1909784156) BLOOD (test code = Negative Negative 0623310984) KETONES (test code = Negative Negative 8564468701) PROTEIN (test code = Negative Negative 2887-8) UROBILIN (test code = 2.0 mg/dL Normal A 3067525013) BILIRUBIN (test code = Negative Negative 6501592598) NITRITE (test code = Negative Negative 7327226857) LEUK MO (test code = Negative Negative 2053801338) RBC/HPF (test code = See_Comment [Autom ated message] 7323215441) The system NoteWagon generated this result transmit delvin reference range : 0 - 3 HPF. The refe rence range was not u sed to interpret th is result as normal/abnormal . WBC/HPF (test code = See_Comment [Autom ated message] 1171501870) The system NoteWagon generated this result transmit delvin reference range : 0 - 5 HPF. The refe rence range was not u sed to interpret th is result as normal/abnormal . BACTERIA (test code = Negative Negative 4784180816) MUCOUS (test code = Slight Negative LPF A 4150014315) SQ EPITH (test code = <1 HPF 6728239010) Lab Interpretation (test Abnormal code = 18355-2) [facility]. METABOLIC PANEL (18105)2021-05-24 02:25:07 Test Item Value Reference Range Interpretation Comments NA (test code = 137 mmol/L 135-145 6928921563) K (test code = 3.1 mmol/L 3.5-5.0 L 9298462748) CL (test code = 102 mmol/L 98-108 0403967556) CO2 TOTAL (test code = 22 mmol/L 23-31 L 9959737715) AGAP (test code = 2-16 1717199223) BUN (test code = 28 mg/dL 7-23 H 5254684684) GLUCOSE (test code = 132 mg/dL 70-110 H 3518123201) CREATININE (test code = 1.77 mg/dL 0.60-1.25 H 7786068255) TOTAL BILI (test code = 1.0 mg/dL 0.1-1.6 0097904371) CALCIUM (test code = 9.4 mg/dL 8.6-10.6 0248166146) T PROTEIN (test code = 9.4 g/dL 6.3-8.2 H 7785589768) ALBUMIN (test code = 5.0 g/dL 3.5-5.0 7561809479) ALK PHOS (test code = 79 U/L 34-122 8325405674) ALTv (test code = 112 U/L 5-50 H 1742-6) AST(SGOT) (test code = 152 U/L 13-40 H 2379649743) eGFR (test code = mL/min/1.73m2 0891075562) KRYSTLE (test code = KRYSTLE) Association of [...] tests). Lab Interpretation Abnormal (test code = 57766-9) [facility]. METABOLIC PANEL (77640)2021-05-24 02:25:07 Test Item Value Reference Range Interpretation Comments NA (test code = 137 mmol/L 135-145 0349062154) K (test code = 3.1 mmol/L 3.5-5.0 L 5510540044) CL (test code = 102 mmol/L 98-108 3449386356) CO2 TOTAL (test code = 22 mmol/L 23-31 L 0912744076) AGAP (test code = 2-16 7506952196) BUN (test code = 28 mg/dL 7-23 H 6205852241) GLUCOSE (test code = 132 mg/dL 70-110 H 1790608454) CREATININE (test code = 1.77 mg/dL 0.60-1.25 H 5094147875) TOTAL BILI (test code = 1.0 mg/dL 0.1-1.1 4209917395) CALCIUM (test code = 9.4 mg/dL 8.6-10.6 1456782968) T PROTEIN (test code = 9.4 g/dL 6.3-8.2 H 9779038553) ALBUMIN (test code = 5.0 g/dL 3.5-5.0 0900450359) ALK PHOS (test code = 79 U/L 34-122 9962851732) ALTv (test code = 112 U/L 5-50 H 1742-6) AST(SGOT) (test code = 152 U/L 13-40 H 6715613214) eGFR (test code = mL/min/1.73m2 0217165156) KRYSTLE (test code = KRYSTLE) Association of [...] tests). Lab Interpretation Abnormal (test code = 65331-8) [facility] WITH [id number] 02:03:22 Test Item Value Reference Range Interpretation Comments WBC (test code = See_Comment [Automated 2690-2) message] The sy stem which generated this [...] RDW-SD (test code = 39.7 fL 38.5-51.6 81091-6) RDW-CV (test code = 12.7 % 12.1-15.4 788-0) PLT (test code = See_Comment [Automated 777-3) message] The sy stem which generated this result transmitted reference range : 150 - 328 10*3/ ?L. The reference r andrea was not used to interpret this result as normal/abnormal . MPV (test code = 9.7 fL 9.8-13.0 L 15632-9) NRBC/100 WBC (test See_Comment [Automat ed code = 4988769082) message] The system which generated this result transmitted reference range : 0.0 - 10.0 /100 WBCs. The refer ence range was not u sed to interpret th is result as normal/abnormal . NRBC x10^3 (test code <0.01 See_Comment [Auto mated = 6367869397) message] The s ystem which generated this result transmitted reference range : 10*3/?L. The reference range was not used to interpret this result as normal/abnormal . GRAN MAT (NEUT) % 45.9 % (test code = 770-8) IMM GRAN % (test code 0.20 % = 1273847377) LYMPH % (test code = 41.7 % 736-9) MONO % (test code = 11.6 % 5905-5) EOS % (test code = 0.3 % 713-8) BASO % (test code = 0.3 % 706-2) GRAN MAT x10^3(ANC) 3.95 10*3/uL 1.99-6.95 (test code = 0207252297) IMM GRAN x10^3 (test <0.03 0.00-0.06 code = 1556689233) LYMPH x10^3 (test code 3.60 10*3/uL 1.09-3.23 H = 731-0) MONO x10^3 (test code 1.00 10*3/uL 0.36-1.02 = 742-7) EOS x10^3 (test code = 0.03 10*3/uL 0.06-0.53 L 711-2) BASO x10^3 (test code 0.03 10*3/uL 0.01-0.09 = 704-7) Lab Interpretation Abnormal (test code = 33826-3) [facility] WITH [id number] 02:03:22 Test Item Value Reference Range Interpretation Comments WBC (test code = See_Comment [Automated 7390-2) message] The sy stem which generated this result transmitted reference range : 4.20 - 10.70 10*3/?L. The reference range was not used to interpret this result as normal/abnormal . RBC (test code = See_Comment [Automated 869-8) message] The sy stem which generated this [...] RDW-SD (test code = 39.7 fL 38.5-51.6 03989-9) RDW-CV (test code = 12.7 % 12.1-15.4 788-0) PLT (test code = See_Comment [Automated 777-3) message] The sy stem which generated this result transmitted reference range : 150 - 328 10*3/ ?L. The reference r andrea was not used to interpret this result as normal/abnormal . MPV (test code = 9.7 fL 9.8-13.0 L 60970-7) NRBC/100 WBC (test See_Comment [Automat ed code = 9685651853) message] The system which generated this result transmitted reference range : 0.0 - 10.0 /100 WBCs. The refer ence range was not u sed to interpret th is result as normal/abnormal . NRBC x10^3 (test code <0.01 See_Comment [Auto mated = 4696603913) message] The s ystem which generated this result transmitted reference range : 10*3/?L. The reference range was not used to interpret this result as normal/abnormal . GRAN MAT (NEUT) % 45.9 % (test code = 770-8) IMM GRAN % (test code 0.20 % = 5990867509) LYMPH % (test code = 41.7 % 736-9) MONO % (test code = 11.6 % 5905-5) EOS % (test code = 0.3 % 713-8) BASO % (test code = 0.3 % 706-2) GRAN MAT x10^3(ANC) 3.95 10*3/uL 1.99-6.95 (test code = 4963071109) IMM GRAN x10^3 (test <0.03 0.00-0.06 code = 4541341167) LYMPH x10^3 (test code 3.60 10*3/uL 1.09-3.23 H = 731-0) MONO x10^3 (test code 1.00 10*3/uL 0.36-1.02 = 742-7) EOS x10^3 (test code = 0.03 10*3/uL 0.06-0.53 L 711-2) BASO x10^3 (test code 0.03 10*3/uL 0.01-0.09 = 704-7) Lab Interpretation Abnormal (test code = 73600-6) [facility] (ID NOW RAPID TESTING)2021-05-02 00:31:00 Test Item Value Reference Range Interpretation Comments SARS-CoV-2 Rapid ID NOW Not Detected Not Detected (test code = 53846-3) KRYSTLE (test code = KRYSTLE) ID NOW COVID-19 Assay is an isothermal nucleic acid amplification test intended for the qualitative detection of nucleic acid from SARS-CoV-2 viral RNA in nasopharyngeal (MECHANICAL [employer]CE [employer]SEM[employer]ER) specimens. It is used under Emergency Use [...] indicated. Lab Interpretation Normal (test code = 14550-9) [facility] STREP SCREEN FOR GROUP [id number] 00:25:45 Test Item Value Reference Range Interpretation Comments Streptococcus pyogenes (group A) Negative Negative antigen (test code = 31377-3) Lab Interpretation (test code = Normal 68346-6) [facility] (ID NOW RAPID TESTING)2021-04-02 01:41:42 Test Item Value Reference Range Interpretation Comments SARS-CoV-2 Rapid ID NOW Not Detected Not Detected (test code = 00144-3) KRYSTLE (test code = KRYSTLE) ID NOW COVID-19 Assay is an isothermal nucleic acid amplification test intended for the qualitative detection of nucleic acid from SARS-CoV-2 viral RNA in nasopharyngeal (MECHANICAL ORDNANCE ASSEMBLER) specimens. It is used under Emergency Use [...] indicated. Lab Interpretation Normal (test code = 64828-4) [facility] [id number] 01:39:31 Test Item Value Reference Range Interpretation Comments Streptococcus pyogenes (group A) Negative Negative antigen (test code = 43860-4) Lab Interpretation (test code = Normal 54228-8) [facility]+ VW [id number] 02:41:03 Impression: No acute osseous abnormality. AFC: [id number] of Report Exam: XR WRIST 3+ VW LEFT, 03/17/2021 8:15 PM. Ordering Physician: NIKHIL BLANTON. History: Wrist pain, felt pop 03/12 . Technique: XR WRIST 3+ VW LEFT [...] soft tissue edema.IMPRESSIONImpression: No acute osseous abnormality.AFC: [id number] 460End of Report [facility] 01:32:01 Test Item Value Reference Range Interpretation Comments APPEARANCE (test code = Clear Clear 2559933910) COLOR (test code = Yellow Yellow 3642312665) PH (test code = 4.8-8.0 1377523144) SP GRAVITY (test code = 1.003-1.030 4053468938) GLU U QUAL (test code = Normal Normal 6092315541) BLOOD (test code = Negative Negative 8439755086) KETONES (test code = Negative Negative 7535020549) PROTEIN (test code = Negative Negative 2887-8) UROBILIN (test code = 2.0 mg/dL Normal A 3940608438) BILIRUBIN (test code = Negative Negative 5072702876) NITRITE (test code = Negative Negative 4618400361) LEUK MO (test code = Negative Negative 9973578986) RBC/HPF (test code = See_Comment [Autom ated message] 1793019925) The system NoteWagon generated this result transmit delvin reference range : 0 - 3 HPF. The refe rence range was not u sed to interpret th is result as normal/abnormal . WBC/HPF (test code = See_Comment [Autom ated message] 2580450439) The system NoteWagon generated this result transmit delvin reference range : 0 - 5 HPF. The refe rence range was not u sed to interpret th is result as normal/abnormal . BACTERIA (test code = Few Negative A 8123866256) MUCOUS (test code = Slight Negative LPF A 5272088048) SQ EPITH (test code = <1 HPF 0254718601) Lab Interpretation (test Abnormal code = 44315-8) [facility] CHEST 1 [id number] 04:09:05Impression: Mild thickening of the sol of the central airways, possibly reflectinginfectious or inflammatory bronchitis. RL: 460 AFC: [id number] Ordering physician: DARNELL HSU Indication: Cough and congestion Comparison: None Fin dings: Single AP view of the chest. The cardiopericardial silhouette iswithin normal limits. There is mild thickening of the sol of the centralairways. The visualized bony thorax is intact. [facility], Radiant Results Inft User - 11/14/2020 10:10 PM CSTOrdering physician: DARNELL MUNIZndication: Cough and congestionComparison: NoneFindings: Single AP view of the chest. The cardiopericardial silhouette iswithin normal limits. There is mild thickening of the sol of the centralairways. The visualized bony thorax is intact.IMPRESSIONImpression:Mild thickening of the sol of the central airways, possibly reflectinginfectious or inflammatory bronchitis.RL: 460AFC: [id number] signed by MD Man, PhD at 11/14/2020 10:09 PM [facility]vineCOMPREHENSIVE METABOLIC [id number] 00:00:00 Test Item Value Reference Range Interpretation Comments GLUCOSE (test code = 2217) 101 MG/DL BUN (test code = 2208) 11 MG/DL CREATININE (test code = 2214) 0.88 MG/DL eGFR AMER. (test code 118 ML/MIN/1.73 = 22258) eGFR NON- AMER. (test 102 ML/MIN/1.73 code = 01502) CALC BUN/CREAT (test code = 13 RATIO [...] BILIRUBIN, TOTAL (test code = 0.6 MG/DL 2207) ALKALINE PHOSPHATASE (test 69 U/L code = 2204) AST (test code = 2218) 54 U/L ALT (test code = 2219) 88 U/L COMPREHENSIVE METABOLIC [id number] 00:00:00 Test Item Value Reference Range Interpretation Comments GLUCOSE (test code = 2217) 101 MG/DL BUN (test code = 2208) 11 MG/DL CREATININE (test code = 2214) 0.88 MG/DL eGFR AMER. (test code 118 ML/MIN/1.73 = 23279) eGFR NON- AMER. (test 102 ML/MIN/1.73 code = 64570) CALC BUN/CREAT (test code = 13 RATIO [...] BILIRUBIN, TOTAL (test code = 0.6 MG/DL 2207) ALKALINE PHOSPHATASE (test 69 U/L code = 2204) AST (test code = 2218) 54 U/L ALT (test code = 2219) 88 U/L N-TERMINAL [id number] 15:43:00 Test Item Value Reference Range Interpretation Comments NT-proBNP (test code <11 See_Comment [Autom ated = 9570550979) message] The system which generated this result transmitted reference range : <=125 pg/mL. Th e reference range was not used to interpret this result as normal/abnormal . KRYSTLE (test code = KRYSTLE) Biotin has been reported to cause a negative bias, interpret results relative to patient's use of biotin. Lab Interpretation Normal (test code = 24844-2) [facility] WITH [id number] 15:27:00 Test Item Value Reference Range Interpretation [...] (test code = 37.3 fL 38.5-51.6 L 86407-2) RDW-CV (test code = 11.9 % 12.1-15.4 L 788-0) PLT (test code = See_Comment [Automated 777-3) message] The sy stem which generated this result transmitted reference range : 150 - 328 10*3/ ?L. The reference r andrea was not used to interpret this result as normal/abnormal . MPV (test code = 9.7 fL 9.8-13 L 85900-0) NRBC/100 WBC (test See_Comment [Automat ed code = 1926291033) message] The system which generated this result transmitted reference range : 0.0 - 10.0 /100 WBCs. The refer ence range was not u sed to interpret th is result as normal/abnormal . NRBC x10^3 (test code <0.01 See_Comment [Auto mated = 6484506935) message] The s ystem which generated this result transmitted reference range : 10*3/?L. The reference range was not used to interpret this result as normal/abnormal . GRAN MAT (NEUT) % 29.2 % (test code = 770-8) IMM GRAN % (test code 0.20 % = 9191159365) LYMPH % (test code = 59.0 % 736-9) MONO % (test code = 10.1 % 5905-5) EOS % (test code = 1.1 % 713-8) BASO % (test code = 0.4 % 706-2) GRAN MAT x10^3(ANC) 1.57 10*3/uL 1.99-6.95 L (test code = 2569567399) IMM GRAN x10^3 (test <0.03 0-0.06 code = 9874140476) LYMPH x10^3 (test code 3.17 10*3/uL 1.09-3.23 = 731-0) MONO x10^3 (test code 0.54 10*3/uL 0.36-1.02 = 742-7) EOS x10^3 (test code = 0.06 10*3/uL 0.06-0.53 711-2) BASO x10^3 (test code <0.03 0.01-0.09 = 704-7) Lab Interpretation Abnormal (test code = 99516-8) [facility] [id number] 15:13:32 No acute cardiopulmonary process. Preliminary Report Dictated by Resident: Efraín Alcaraz MD., have reviewed this study and agree withthe above report.PROCEDURE: XR CHEST 1 VW CLINICAL INDICATION: dizzy TECHNIQUE: Frontal chest radiograph was obtained. COMPARISON: None FINDINGS: The lungs are clear. No pleural effusion or pneumothorax is seen. The heart is normal in size. No acute bony abnormality is noted. [facility], Radiant Results Inft User - 09/30/2020 9:14 [...] report.[facility] [id number] 14:59:00 Test Item Value Reference Range Interpretation Comments TROPONIN I (test <0.012 See_Comment [Automated code = 9646965513) message] The system which generated this result [...] ? Lab Interpretation Normal (test code = 99497-8) [facility] METABOLIC PANEL (68010)2020-09-30 14:59:00 Test Item Value Reference Range Interpretation Comments NA (test code = 139 mmol/L 135-145 4140012318) K (test code = 3.8 mmol/L 3.5-5 2405075692) CL (test code = 103 mmol/L 98-108 8445041196) CO2 TOTAL (test code = 26 mmol/L 23-31 0678618391) AGAP (test code = 2-16 9159284774) BUN (test code = 11 mg/dL 7-23 4316317099) GLUCOSE (test code = 163 mg/dL 70-110 H 5724122139) CREATININE (test code = 0.85 mg/dL 0.6-1.25 2266088987) TOTAL BILI (test code = 0.6 mg/dL 0.1-1.0 9595201863) CALCIUM (test code = 9.0 mg/dL 8.6-10.6 1862240505) T PROTEIN (test code = 8.0 g/dL 6.3-8.2 4108638703) ALBUMIN (test code = 4.4 g/dL 3.5-5 6990468613) ALK PHOS (test code = 75 U/L 34-122 4680677200) ALTv (test code = 61 U/L 5-50 H 1742-6) AST(SGOT) (test code = 54 U/L 13-40 H 1380475200) eGFR Calculation mL/min/1.73m2 (Non-) (test code = 7096890762) eGFR Calculation mL/min/1.73m2 () (test code = 1464838602) KRYSTLE (test code = KRYSTLE) Association of [...] tests). Lab Interpretation Abnormal (test code = 07942-6) [facility]vineLIP[facility], [id number] 14:59:00 Test Item Value Reference Range Interpretation Comments LIPASE (test code = 5992974198) 116 U/L 0-220 Lab Interpretation (test code = Normal 92861-5) [facility]vineTroponin [id number] 04:30:00 Test Item Value Reference Range Interpretation Comments TROPONIN I (test <0.012 See_Comment [Automated code = 8468486921) message] The system which generated this result [...] ? Lab Interpretation Normal (test code = 46331-0) [facility] Met[facility] [id number] 03:24:00 Test Item Value Reference Range Interpretation Comments NA (test code = 137 mmol/L 135-145 3758824415) K (test code = 4.7 mmol/L 3.5-5 3798464646) CL (test code = 101 mmol/L 98-108 7620610650) CO2 TOTAL (test code = 27 mmol/L 23-31 4171427119) AGAP (test code = 2-16 6430585335) BUN (test code = 16 mg/dL 7-23 4505766390) GLUCOSE (test code = 226 mg/dL 70-110 H 3156871123) CREATININE (test code = 1.13 mg/dL 0.6-1.25 7707039710) TOTAL BILI (test code = 0.7 mg/dL 0.1-1.3 2242616190) CALCIUM (test code = 9.3 mg/dL 8.6-10.6 7620307123) T PROTEIN (test code = 7.8 g/dL 6.3-8.2 8726565876) ALBUMIN (test code = 3.9 g/dL 3.5-5 0626713560) ALK PHOS (test code = 79 U/L 34-122 2575372443) ALTv (test code = 62 U/L 5-50 H 1742-6) AST(SGOT) (test code = 49 U/L 13-40 H 6768957401) eGFR Calculation mL/min/1.73m2 (Non-) (test code = 5450483172) eGFR Calculation mL/min/1.73m2 () (test code = 5388475870) KRYSTLE (test code = KRYSTLE) Association of [...] tests). Lab Interpretation Abnormal (test code = 83276-3) [facility], [id number] 03:23:00 Test Item Value Reference Range Interpretation Comments LIPASE (test code = 0169198838) 317 U/L 0-220 H Lab Interpretation (test code = Abnormal 02304-0) [facility] with [id number] 03:21:00 Test Item Value Reference Range Interpretation Comments WBC (test code = See_Comment [Automated 8290-2) message] The sy stem which generated this result transmitted reference range : 4.20 - 10.70 10*3/?L. The reference range was not used to interpret this result as normal/abnormal . RBC (test code = See_Comment [Automated 629-8) message] The sy stem which generated this [...] (test code = 37.9 fL 38.5-51.6 L 97461-8) RDW-CV (test code = 12.4 % 12.1-15.4 788-0) PLT (test code = See_Comment [Automated 7-3) message] The sy stem which generated this result transmitted reference range : 150 - 328 10*3/ ?L. The reference r andrea was not used to interpret this result as normal/abnormal . MPV (test code = 9.7 fL 9.8-13 L 95480-7) NRBC/100 WBC (test See_Comment [Automat ed code = 4378577510) message] The system which generated this result transmitted reference range : 0.0 - 10.0 /100 WBCs. The refer ence range was not u sed to interpret th is result as normal/abnormal . NRBC x10^3 (test code <0.01 See_Comment [Auto mated = 4564879306) message] The s ystem which generated this result transmitted reference range : 10*3/?L. The reference range was not used to interpret this result as normal/abnormal . GRAN MAT (NEUT) % 36.7 % (test code = 770-8) IMM GRAN % (test code 0.10 % = 1606170389) LYMPH % (test code = 50.9 % 736-9) MONO % (test code = 11.1 % 5905-5) EOS % (test code = 0.8 % 713-8) BASO % (test code = 0.4 % 706-2) GRAN MAT x10^3(ANC) 2.59 10*3/uL 1.99-6.95 (test code = 4347264983) IMM GRAN x10^3 (test <0.03 0-0.06 code = 9376795427) LYMPH x10^3 (test code 3.61 10*3/uL 1.09-3.23 H = 731-0) MONO x10^3 (test code 0.79 10*3/uL 0.36-1.02 = 742-7) EOS x10^3 (test code = 0.06 10*3/uL 0.06-0.53 711-2) BASO x10^3 (test code 0.03 10*3/uL 0.01-0.09 = 704-7) Lab Interpretation Abnormal (test code = 42413-8) [facility]"
[2023-07-25] MEDS ORDERED: FAMOTIDINE 20 MG/2 ML VIAL IV ONE (22:27)
[2023-07-25] MEDS ORDERED: MORPHINE 4 MG/ML SYR ONE (22:27)
[2023-07-25] MEDS ORDERED: NA CHLORIDE 0.9% 1,000 ML ONE (22:27)
[2023-07-25 22:49] LABS: Absolute Lymphocytes (CBC) 3.6 K/uL (0.7-4.9); Hematocrit 42.2 % (39.6-49.0); Lymphocytes % 49.9 % (15.3-44.8); MCV 87.2 fL (80-100); MPV 8.2 fL (7.6-11.3); Platelets 203 thou/uL (152-406); RBC Red Blood Cell Count 4.84 M/uL (4.33-5.43)
[2023-07-25] MEDS ORDERED: PANTOPRAZOLE 40 MG INJ ONE (23:04)
[2023-07-25 23:08] LABS: Albumin 3.7 g/dL (3.4-5.0); Bilirubin Total 0.4 mg/dL (0.2-1.0); Potassium 3.6 mEq/L (3.5-5.1); Protein, Total 7.6 g/dL (6.4-8.2)
[2023-07-26] MEDS ORDERED: HYOSCYAMINE SULF 0.125 MG TAB ONE (00:15)
[2023-07-26] MEDS ORDERED: cloNIDine HCL 0.1 MG TAB ONE (00:37)
--- NOTE | 2023-07-26 02:18 | EDPHYS ---
Physician Documentation [facility] Name: Noah Putnam Age: 52 yrs Sex: Male : 1970 Arrival Date: 07/25/2023 Time: 21:38 Bed 14 Private MD: ED Physician Cullen Trejo HPI: 07/25 23:28 This 52 yrs old Black Male presents to ER via Ambulatory with complaints of Abdominal snw Pain. 23:28 The patient presents with abdominal pain in the epigastric area, in the upper abdomen. snw Onset: The symptoms/episode began/occurred gradually, 1 week(s) ago, and became worse today, and became persistent. The symptoms radiate to back. Associated signs and symptoms: Pertinent positives: nausea and vomiting. The symptoms are described as burning, stabbing. Severity of pain: At its worst the pain was incapacitating in the emergency department the pain is unchanged. The patient has experienced similar episodes in the past. The patient has been recently seen by a physician: The patient has been recently seen at the [facility] Emergency Department, last week. looking at cell phone in room, pt does have exquisite tenderness to LUQ. Historical: - Allergies: 21:55 Bee Venom; cm10 - PMHx: 21:55 chronic kidney disease; Chronic Pancreatitis; Herniated disc; Hypertension; cm10 - PSHx: 21:55 left arm surgery; cm10 - Immunization history:: Adult Immunizations unknown. - Social history:: Smoking status: Patient denies any tobacco usage or history of. ROS: 23:27 Eyes: Negative for injury, pain, redness, and discharge, ENT: Negative for injury, snw pain, and discharge, Neck: Negative for injury, pain, and swelling, Cardiovascular: Negative for chest pain, palpitations, and edema, Respiratory: Negative for shortness of breath, cough, wheezing, and pleuritic chest pain, Back: Negative for injury and pain, : Negative for injury, bleeding, discharge, and swelling, MS/Extremity: Negative for injury and deformity, Skin: Negative for injury, rash, and discoloration, Neuro: Negative for headache, weakness, numbness, tingling, and seizure, Psych: Negative for depression, anxiety, suicide ideation, homicidal ideation, and hallucinations, 23:27 Constitutional: Positive for "I feel like I'm dying", 23:27 Abdomen/GI: Positive for abdominal pain, nausea, vomiting, Exam: 23:16 Constitutional: This is a well developed, well nourished patient who is awake, alert, snw and in no acute distress. Head/Face: Normocephalic, atraumatic. Eyes: Pupils equal round and reactive to light, extra-ocular motions intact. Lids and lashes normal. Conjunctiva and sclera are non-icteric and not injected. Cornea within normal limits. Periorbital areas with no swelling, redness, or edema. ENT: Nares patent. No nasal discharge, no septal abnormalities noted. Tympanic membranes are normal and external auditory canals are clear. Oropharynx with no redness, swelling, or masses, exudates, or evidence of obstruction, uvula midline. Mucous membranes moist. Neck: Trachea midline, no thyromegaly or masses palpated, and no cervical lymphadenopathy. Supple, full range of motion without nuchal rigidity, or vertebral point tenderness. No Meningismus. Chest/axilla: Normal chest wall appearance and motion. Nontender with no deformity. No lesions are appreciated. Cardiovascular: Regular rate and rhythm with a normal S1 and S2. No gallops, murmurs, or rubs. Normal PMI, no JVD. No pulse deficits. Respiratory: Lungs have equal breath sounds bilaterally, clear to auscultation and percussion. No rales, rhonchi or wheezes noted. No increased work of breathing, no retractions or nasal flaring. Back: No spinal tenderness. No costovertebral tenderness. Full range of motion. Skin: Warm, dry with normal turgor. Normal color with no rashes, no lesions, and no evidence of cellulitis. MS/ Extremity: Pulses equal, no cyanosis. Neurovascular intact. Full, normal range of motion. Neuro: Awake and alert, GCS 15, oriented to person, place, time, and situation. Cranial nerves II-XII grossly intact. Motor strength 5/5 in all extremities. Sensory grossly intact. Cerebellar exam normal. Normal gait. Psych: Awake, alert, with orientation to person, place and time. Behavior, mood, and affect are within normal limits. 23:16 Abdomen/GI: Inspection: abdomen appears normal, Bowel sounds: normal, Palpation: moderate abdominal tenderness, in the right upper quadrant, severe abdominal tenderness, in the left upper quadrant, Vital Signs: 21:53 BP 160 / 105; Pulse 79; Resp 18 S; Temp 98.2; Pulse Ox 99% on R/A; Weight 118.84 kg; cm10 Height 6 ft. 5 in. ; Pain 06/23; 23:55 BP 144 / 97; Pulse 65; Resp 16; Pulse Ox 99% on R/A; jb4 07/26 01:30 BP 165 / 95; Pulse 69; Resp 16; Pulse Ox 99% on R/A; jb4 07/25 21:53 Body Mass Index 31.07 (118.84 kg, 195.58 cm) cm10 07/25 21:53 Pain Scale: Adult cm10 MDM: 07/25 22:10 Patient medically screened. snw 23:17 Differential diagnosis: cholecystitis, Cholelithiasis. Data reviewed: vital signs, snw nurses notes, lab test result(s). I considered the following discharge prescriptions or medication management in the emergency department Medications were administered in the Emergency Department. See NOV. 07/26 02:03 ED course: Pt and are very verbal about their frustration and displeasure of snw "non-diagnosis of whatever is going on". started visit with demand for transfer to somewhere with GI. I discussed with both that pt would have to meet criteria for transfer, that EDs are not for treatment of chronic issues. is angry that pt is not treated for "whatever the problem is in the ER, they always put a bandaid on it and send him home." Discussed that pt does have a GI specialist that he has not seen. Encouraged to follow up with GI. Labs within normal, CT negative, area to left upper abd/rib with lipoma like consistency noted, area tender so ultrasound was performed over this painful area. Negative for any findings. I did give pt morphine for pain, his blood was borderline high so also gave clonidine in an effort to relax his abdomen and Levsin. Pt extremely angry that I offered clonidine as he looked it up and stated it is given for narcotic bowel syndrome. Pt yelled at me that he would not be taking anything I ordered and asked me to leave his room. Encouraged to f/u GI and General surgery, will give list of both on discharge papers.. 07/25 22:11 Order name: CBC with Diff; Complete Time: 22:57 snw 07/25 22:11 Order name: CMP; Complete Time: 23:08 snw 07/25 22:11 Order name: Lipase; Complete Time: 23:08 snw 07/25 22:11 Order name: CT Abd/Pelvis - IV Contrast Only snw 07/26 01:36 Order name: Extremity Nonvascular Complete EDMS 07/25 22:11 Order name: IV Saline Lock; Complete Time: 22:12 snw 07/25 22:11 Order name: Labs collected and sent; Complete Time: 22:12 snw Administered Medications: 07/25 22:28 Drug: NS 0.9% IV 1000 ml IV at 1 bolus Per protocol; 1000 mL bolus Route: IV; Rate: 1 cm10 bolus; Site: right forearm; 22:28 Drug: Famotidine IVP 20 mg IVP once; dilute with 10 mL 0.9% NaCl; give over 2 minutes cm10 Route: IVP; Site: right forearm; 22:28 Drug: morphine IVP or IV 4 mg IVP once over 4 mins Route: IVP; Infused Over: 4 mins; cm10 Site: right forearm; 22:54 Drug: Pantoprazole IVP 40 mg IVP once Route: IVP; Site: right forearm; jb4 07/26 00:16 Drug: Hyoscyamine Sublingual 0.125 mg 0.125 mg Sublingual once Route: Sublingual; jb4 01:13 Not Given (Patient Refused): clonidine0.1 mg PO once jb4 Disposition: 07/25 23:59 I was immediately available on-site in the Emergency Department for consultation in the ok3 care of the patient. Disposition Summary: 07/26/23 02:17 Discharge Ordered Notes: Location: Home snw Condition: Stable snw Diagnosis - Upper abdominal pain, unspecified - left snw Followup: snw - With: Emergency Department - When: As needed - Reason: Worsening of condition Followup: snw - With: Private Physician - When: 2 - 3 days - Reason: Recheck today's complaints, Continuance of care, Re-evaluation by your physician Discharge Instructions: - Discharge Summary Sheet snw - Abdominal Pain, Adult snw - Colic snw - Upper Endoscopy, Adult snw - Rehydration, Adult snw Forms: - Medication Reconciliation Form snw - Thank You Letter snw - Antibiotic Education snw - Prescription Opioid Use snw - Patient Portal Instructions snw - Leadership Thank You Letter snw Prescriptions: - Carafate 1 gram Oral Tablet - take 2 tablets ORAL route every 12 hours take on an empty stomach, beginning on snw waking and last dose at bedtime; 100 tablet; Refills: 0, Product Selection Permitted Signatures: Dispatcher [employer] EDMS Donna Young, DIRECTOR PAID MEDIA-C DIRECTOR PAID MEDIA-Csnw Peter Gao, RN RN jb4 Cullen Trejo DO DO ms3 Josephine Petersen, RN RN cm10 Corrections: (The following items were deleted from the chart) 07/26 01:36 00:50 Extrmty Nonvasular Limited+US.RAD.BRZ ordered. EDMS EDMS
--- NOTE | 2023-07-26 02:18 | ER ---
Nurse's Notes [facility] Name: Noah Putnam Age: 52 yrs Sex: Male : 1970 Arrival Date: 07/25/2023 Time: 21:38 Bed 14 Private MD: Diagnosis: Upper abdominal pain, unspecified-left Presentation: 07/25 21:53 Chief complaint: Patient states: LUQ that started a few days ago and got worse today. cm10 Pt states that the pain is a sharp pain and he's been vomiting. Pt states that the pain radiates to his back between his shoulders. Coronavirus screen: Vaccine status: Patient reports receiving the 2nd dose of the covid vaccine. Client denies travel out of the [place] in the last 14 days. Ebola Screen: Patient denies travel to an Ebola-affected area in the 21 days before illness onset. No symptoms or risks identified at this time. Initial Sepsis Screen: Does the patient meet any 2 criteria? No. Patient's initial sepsis screen is negative. Does the patient have a suspected source of infection? No. Patient's initial sepsis screen is negative. Risk Assessment: Do you want to hurt yourself or someone else? Patient reports no desire to harm self or others. Onset of symptoms was July 25, 2023. 21:53 Method Of Arrival: Ambulatory cm10 21:53 Acuity: BREEZY 3 cm10 Historical: - Allergies: 21:55 Bee Venom; cm10 - PMHx: 21:55 chronic kidney disease; Chronic Pancreatitis; Herniated disc; Hypertension; cm10 - PSHx: 21:55 left arm surgery; cm10 - Immunization history:: Adult Immunizations unknown. - Social history:: Smoking status: Patient denies any tobacco usage or history of. Screenin/12 02:36 [facility] ED Fall Risk Assessment (Adult) History of falling in the last 3 months, jb4 including since admission No falls in past 3 months (0 pts) Confusion or Disorientation No (0 pts) Score/Fall Risk Level 0 - 2 = Low Risk Oriented to surroundings, Maintained a safe environment. Abuse screen: Denies threats or abuse. Nutritional screening: No deficits noted. Tuberculosis screening: No symptoms or risk factors identified. Assessment: 07/25 22:00 General: Appears in no apparent distress. uncomfortable, Behavior is calm, cooperative, jb4 appropriate for age. Pain: Complains of pain in Left lower chest wall. Pain does not radiate. Pain currently is 10 out of 10 on a pain scale. Quality of pain is described as tender. Neuro: Level of Consciousness is awake, alert, obeys commands, Oriented to person, place, time, situation. Cardiovascular: Patient's skin is warm and dry. Respiratory: Airway is patent Respiratory effort is even, unlabored, Respiratory pattern is regular, symmetrical. GI: Abdomen is flat, non-distended. : No signs and/or symptoms were reported regarding the genitourinary system. EENT: No signs and/or symptoms were reported regarding the EENT system. Derm: Skin is intact, Skin is pink, warm \\T\\ dry. Musculoskeletal: Circulation, motion, and sensation intact. Range of motion: intact in all extremities. 23:00 Reassessment: Patient appears in no apparent distress at this time. Patient and/or jb4 family updated on plan of care and expected duration. Pain level reassessed. Patient is alert, oriented x 3, equal unlabored respirations, skin warm/dry/pink. 07/26 00:45 Reassessment: Patient appears in no apparent distress at this time. Patient and/or jb4 family updated on plan of care and expected duration. Pain level reassessed. Patient is alert, oriented x 3, equal unlabored respirations, skin warm/dry/pink. Pt continues to report pain. Palpated pt's lower left chest, a soft firm lump is noted that is tender to the touch. The tenderness is noted to follow the rib to the back. Provider notified. Ultrasound ordered. Pt continues to report pain and is more frustrated, is refusing further pain medications. stating " I am not a dope fiend. I am not trying to mask the problem. I just want answers and to know why I am hurting so bad.". 02:08 Reassessment: Patient appears in no apparent distress at this time. Patient and/or jb4 family updated on plan of care and expected duration. Pain level reassessed. Patient is alert, oriented x 3, equal unlabored respirations, skin warm/dry/pink. 02:10 Reassessment: Pt disconnected from VS monitoring and IV d/c'ed per request. jb4 Vital Signs: 07/25 21:53 BP 160 / 105; Pulse 79; Resp 18 S; Temp 98.2; Pulse Ox 99% on R/A; Weight 118.84 kg; cm10 Height 6 ft. 5 in. ; Pain 06/23; 23:55 BP 144 / 97; Pulse 65; Resp 16; Pulse Ox 99% on R/A; jb4 07/26 01:30 BP 165 / 95; Pulse 69; Resp 16; Pulse Ox 99% on R/A; jb4 07/25 21:53 Body Mass Index 31.07 (118.84 kg, 195.58 cm) cm10 07/25 21:53 Pain Scale: Adult cm10 ED Course: 07/25 21:45 Patient arrived in ED. gm2 21:52 Donna Young FNP-C is PHCP. snw 21:52 Cullen Trejo DO is Attending Physician. snw 21:54 Triage completed. cm10 21:55 Arm band placed on Patient placed in an exam room, on a stretcher. cm10 22:06 Initial lab(s) drawn, by me, sent to lab. Inserted saline lock: 18 gauge in right cm10 forearm, using aseptic technique. Blood collected. 22:28 CBC with Diff Sent. cm10 22:28 CMP Sent. cm10 22:28 Lipase Sent. cm10 23:56 CT Abd/Pelvis - IV Contrast Only In Process Unspecified. EDMS 07/26 01:36 Extremity Nonvascular Complete In Process Unspecified. EDMS 02:10 IV discontinued, intact, bleeding controlled, No redness/swelling at site. Pressure jb4 dressing applied. 02:36 Patient has correct armband on for positive identification. Bed in low position. Call jb4 light in reach. Side rails up X 1. Client placed on continuous cardiac and pulse oximetry monitoring. NIBP monitoring applied. 02:36 No provider procedures requiring assistance completed. IV discontinued, intact, jb4 bleeding controlled, No redness/swelling at site. Pressure dressing applied. Administered Medications: 07/25 22:28 Drug: NS 0.9% IV 1000 ml IV at 1 bolus Per protocol; 1000 mL bolus Route: IV; Rate: 1 cm10 bolus; Site: right forearm; 22:28 Drug: Famotidine IVP 20 mg IVP once; dilute with 10 mL 0.9% NaCl; give over 2 minutes cm10 Route: IVP; Site: right forearm; 22:28 Drug: morphine IVP or IV 4 mg IVP once over 4 mins Route: IVP; Infused Over: 4 mins; cm10 Site: right forearm; 22:54 Drug: Pantoprazole IVP 40 mg IVP once Route: IVP; Site: right forearm; jb4 12 00:16 Drug: Hyoscyamine Sublingual 0.125 mg 0.125 mg Sublingual once Route: Sublingual; jb4 01:13 Not Given (Patient Refused): clonidine0.1 mg PO once jb4 Outcome: 02:17 Discharge ordered by MD. gutierrez 02:36 Discharged to home ambulatory, with family, jb4 02:36 Condition: stable 02:36 Discharge instructions given to patient, Instructed on discharge instructions, follow up and referral plans. medication usage, Demonstrated understanding of instructions, follow-up care, medications, Prescriptions given X 1, 02:39 Patient left the ED. jb4 Signatures: Dispatcher [employer] EDMS Donna Young, SIGN OUT CLERK-C SIGN OUT CLERK-Csnw Peter Gao RN RN jb4 Josephine Petersen RN RN cm10 Rafia Smith 2 Corrections: (The following items were deleted from the chart) 02:39 11 22:00 Pain: Complains of pain in abdomen Pain does not radiate. Pain currently is jb4 10 out of 10 on a pain scale. Quality of pain is described as crampy, jb4
[2023-07-26 02:57] VITALS: TEMP 98.2; O2SAT 99
[2023-07-26 03:04] VITALS: BP 165/95
--- NOTE | 2023-07-28 11:10 | RAD REPORT ---
EXAM DESCRIPTION: CT - Abdomen Pelvis W Contrast - 07/26/2023 6:50 am CLINICAL HISTORY: 52 years Male; LUQ PAIN; IV ONLY Bed Name: 14 TECHNIQUE: CT of the abdomen and pelvis with intravenous contrast. All CT scans at this facility use dose modulation, iterative reconstruction, and/or weight based dosi ng when appropriate to reduce radiation dose to as low as reasonably achievable. COMPARISON: CT abdomen pelvis 07/20/2023 FINDINGS: Lower thorax: Mild bibasilar atelectasis. Abdomen: Stomach: Within normal limits Liver: Subcentimeter hypodensity in the right hepatic lobe, too small to characterize. No intrahepati c ductal distention. Gallbladder: Nondistended Pancreas: Within normal limits Spleen: Within normal limits Right kidney: No hydronephrosis. No focal lesion. Left kidney: No hydronephrosis. No focal lesion. Adrenal glands: Within normal limits Vascular structures: Within normal limits Nodes: No lymphadenopathy by size criteria Pelvis: Small bowel: No significant distention. Appendix: Within normal limits Colon: No distention or acute pericolonic edema. Moderate stool burden. Peritoneum: No free intraperitoneal fluid or air. Bones: No acute bone findings. Bladder: Unchanged ill-defined nodular soft tissue along the posterior aspect of the bladder, likely secondary to prostate hypertrophy. Reproductive organs: No acute findings. Mild prostatomegaly. Soft tissues: Small fat-containing left inguinal hernia. Small fat-containing umbilical hernia. IMPRESSION: 1. No acute abdominopelvic findings. 2. Small fat-containing left inguinal hernia. 3. Mild prostatomegaly. Correlate with PSA. Unchanged ill-defined nodular soft tissue along the pos terior aspect of the bladder, likely exophytic extension from prostatic hypertrophy. If clinical conc samina for underlying bladder lesion exists, recommend direct inspection. 4. Moderate stool burden. Electronically signed by: Coreen Goldberg MD 07/26/2023 12:31 AM VIDEO GAME DEVELOPER Due to temporary technical issues with the PACS/Fluency reporting system, reports are being signed by the in house radiologist without review as a courtesy to ensure prompt reporting. The interpreting r adiologist is fully responsible for the content of the report.
--- NOTE | 2023-07-28 11:22 | RAD REPORT ---
EXAM DESCRIPTION: US - Extremity Nonvascular Complete - 07/26/2023 1:35 am CLINICAL HISTORY: 52 years, Male, Pain;Swelling COMPARISON: None. FINDINGS: Multiple grayscale images of the left lateral chest were performed. No significant masses in/or abnormal fluid collections are identified. No evidence for abscess. No ev idence for significant lymphadenopathy. IMPRESSION: Unremarkable sonographic appearance of the left chest. Electronically signed by: Edward Barone MD 07/26/2023 02:17 AM MANAGER LIGHTING Due to temporary technical issues with the PACS/Fluency reporting system, reports are being signed by the in house radiologist without review as a courtesy to ensure prompt reporting. The interpreting r adiologist is fully responsible for the content of the report.
== END 2023-07-26 02:39 | disposition home or self-care (01) ==
LOC: ER 21:38
DX: R10.12 Left upper quadrant pain (principal); R11.2 Nausea with vomiting, unspecified; I12.9 Hypertensive chronic kidney disease with stage 1 through stage 4 chronic kidney disease, or unspecified chronic kidney disease; N18.9 Chronic kidney disease, unspecified; Z91.030 Bee allergy status
CPT/HCPCS: 85025; 36415; 83690; 80053; 74177; 76881; 96375; 96374; 99284; Q9967; C9113; J7030

== ENCOUNTER 2023-08-20 21:44 | Emergency (ER) | payer OTHER, SELFPAY ==
--- OUTSIDE RECORDS SUMMARY | 2023-08-20 21:55 | XMS REPORT | Continuity of Care Document ---
Author Name Unknown Address [address] [facility] [address] [place] [address] [facility] thconnect Address [address] [facility] [address] [place] [address] Care Team Providers Care Sales Enablement Consultant Name Role Phone Emily Gaines Primary Care Physician Mayuri James Attending Clinician UnavailMERLYN Ohara Attending Clinician Unavailable ADAN CHESTER Attending Clinician ABRAHAM Reyes Attending Clinician Unavailable Abraham Orantes MD Attending Clinician [phone] KIARA RICHARDSON Attending Clinician Unava iljennifer Doctor Unassigned, [place] Attending Clinician U Trevor Carlin Attending Clinician Unavailable Claudia PAC, Trevor Moreno Attending Clinician [phone] JOHNATHAN AVILA Attending Clinician Unavail able Sandra ALLEN, Johnathan Melvin Attending Clinician [phone] Jessie Paul Attending Clinician Unavaila NANCY Mayfield Attending Clinician Unavailabl STEPHIE Cortes Attending Clinician Unavailab MIRIAM Cervantes Attending Clinician Unavailable MIRIAM LDUWIG Attending Clinician Unavailable Hina ALLEN, Haresh Saeed Attending Clinician + Jessie Gleason Attending Clinician Unavailab Dieudonne Winters Attending Clinician Unavailab atilio LABTonie Attending Clinician Unavailable MANFRED LANE Attending Clinician Unavaila AYDIN Miller Attending Clinician Unavailable Aydin Matos MD Attending Clinician + NATALI ALEXANDER Attending Clinician Unavailab Natali Glass DO Attending Clinician +[phone] ADELAIDE GOODWIN Attending Clinician Unavailable Christa ALLEN, Adelaide Attending Clinician [phone] HEMALATHA MORA Attending Clinician Unavailable Hemalatha Womack Attending Clinician + [phone] JESSICA GONZALES Attending Clinician Unavailable Christian SINCLAIR, Jessica S Attending Clinician [phone] SOHAM CLARKE Attending Clinician Unavaillupillo Clarke MD, Soham Sethi Attending Clinician +[phone] Lion Eckert Attending Clinician +[phone] MARK HERNANDEZ Attending Clinician Unavailable Mark Hernandez MD Attending Clinician [phone] Carly BARRIGA, Ellen Kilpatrick Attending Clinician [phone] EMELIA GALLEGO Attending Clinician Unavailable Madison Akers Attending Clinician [phone] Emelia Gallego DO Attending Clinician [phone] Felipe Valdivia B Attending Clinician [phone] FELIPE ORTEGA Attending Clinician Unavailable Elliot HICKS, Gabriella Richard Attending Clinician [phone] Nurse, Adc Pob Immunization Attending Clinician Unavailable David Clarke DO Attending Clinician Harvinder WALDROP, Nikihl Attending Clinician [phone] NIKHIL BLANTON Attending Clinician Unavailable Isabela BARRIGA, Mirna Topete Attending Clinician Unavailab le Pcp, Patient Does Not Have A Attending Clinician Darnell Bustillo Attending Clinician [phone] DARNELL HSU Attending Clinician Unavailable Jessy Siddiqui DO Attending Clinician [phone] ABRAHAM ORANTES Admitting Clinician Unavailable JOHNATHAN AVILA Admitting Clinician Unavail able UNDEFINED Admitting Clinician Unavailable STEPHIE HEWITT Admitting Clinician Unavailab HARESH Sharma Admitting Clinician Unav Dieudonne Cosby Admitting Clinician Unavailab MANFRED Elizabeth Admitting Clinician Unavaila NATALI Roe Admitting Clinician Unavailab ADELAIDE Rader Admitting Clinician Unavailable HEMALATHA MORA Admitting Clinician Unavailable SOHAM CLARKE Admitting Clinician Unavailabl LION Jo Admitting Clinician Unavailable MARK HERNANDEZ Admitting Clinician Unavailable Mark Hernandez MD Admitting Clinician [phone] Trevor TAYLOR Admitting Clinician Unavailable EMELIA GALLEGO Admitting Clinician Unavailable Emelia Gallego DO Admitting Clinician [phone] DARNELL HSU Admitting Clinician Unavailable Payers Payer Name Policy Type Policy Number Effective Date Expirati on Date Source [facility] INS PROGRAM 2 [id number] 2023 00:00:00 [employer] RULE [id number] 2023 00:00:00 [employer] MP [employer] 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 Problems Condition Name Condition Details Condition Category Status Onset Date Resolution Date Last Treatment Date Treating Clinician Comments Source Epigastric pain Epigastric pain Disease Active 10-11 00:00: 00 [facility] SBO (small bowel obstructio n) SBO (small bowel obstructio n) Disease Active 10-30 00:00: 00 [facility] Obesity (BMI 30-39.9) Obesity (BMI 30-39.9) Disease Active 10-30 00:00: 00 [facility] No known active problems No known active problems Disease [facility] [id number] Bladder mass Problem [facility] [id number] Microscopi c hematuria Problem [facility] [id number] Suprapubic pain Problem [facility] [id number] Lower urinary tract symptoms Problem [facility] Allergies, Adverse Reactions, Alerts Allergy Name Allergy Type Status Severity Reaction(s) Onset Date Inactive Date Treating Clinician Comments Source bee venom protein (honey bee) DA Active SV THROAT SWELL 2022-09 00:00: 00 [facility] BEE VENOM PROTEIN (HONEY BEE) DRUG INGREDI Active Swelling 10-30 00:00: 00 [facility] Bee Venom Propensi ty to adverse reaction s Active Swelling 10-30 00:00: 00 [facility] - Externa l No Known Allergie s DA Active U 04-19 00:00: 00 [facility] NO KNOWN ALLERGIE S Drug Class Active [facility] Social History Social Habit Start Date Stop Date Quantity Comments Source Gender identity Kelsi Ng - External Sexual orientation Trevor Ng - External History of tobacco use Cigarette Smoker [facility] trivedi - External Alcohol intake 2023-07-08 00:00:00 2023-07-08 00:00:00 Lifetime non-drinker (finding) [facility] Ng - External History of Social function 2023-06-01 00:00:00 2023-06-01 00:00:00 [facility] Ng - External Exposure to SARS-CoV-2 (event) 2022-11-28 00:00:00 2022-12-08 23:50:00 Not sure [facility] Tobacco use and exposure 2022-10-11 00:00:00 2022-10-11 00:00:00 Smokeless tobacco non-user [facility] Sex Assigned At 1970 00:00:00 1970 00:00:00 [facility] - External Smoking Status Start Date Stop Date Source Occasional tobacco smoker 2023-05-20 00:00:00 [facility] Ng - External Never smoked tobacco [facility] Former Smoker 2022-07-11 00:00:00 2022-07-11 00:00:00 [facility] Unknown if ever smoked [facility] Medications Ordered Medication Name Filled Medication Name Start Date Stop Date Current Medication? Ordering Clinician Indication Dosage Frequency Signature (SIG) Comments Components Source HYDROcodone -acetaminop hen (NORCO) 10-325 mg tablet 1 tablet 2022-09 06:45: 00 08-04 05:38 :00 No 1{tbl} 1 tablet, Oral, ONCE NOW, 1 dose, On Thu08/04/23 at 0045, [facility] methocarbam oL (ROBAXIN) tablet 1,000 mg 2022-09 05:45: 00 08-04 05:38 :00 No 1000mg 1,000 mg, Oral, ONCE, 1 dose, [facility]08/03/23 [facility] 2345[facility] F[facility] (SUBLIMAZE (PF)) injection 75 mcg 2022-09 05:00: 00 08-04 04:14 :00 No 75ug 75 mcg, Slow IV Push, ONCE, 1 dose, On Thu08/03/23 at 2300, Routine [facility] NaCl 0.9% (NS) IV infusion 1,000 mL 2022-09 04:45: 00 08-04 05:39 :00 No 1000mL at 999 mL/hr, Intravenou s, ONCE, 1 dose, On 08/03/23 at 2245, Routine [facility] methocarbam oL 500 mg tablet 2022-09 00:00: 00 Yes [id number] 500mg Take 1 tablet by mouth every 6 (six) hours as needed (MUSCLE SPASM). [facility] HYDROcodone -acetaminop hen (NORCO) 10-325 mg tablet 2022-09 00:00: 00 08-11 05:59 :00 Yes [id number] 1{tbl} Take 1 tablet by mouth every 6 (six) hours as needed for Pain (scale 7-10) for up to 7 days. Indication s: acute pain [facility] diphenhydrA MINE (BENADRYL) injection 25 mg 2022-09 19:30: 00 07-25 18:34 :00 No 25mg 25 mg, Slow IV Push, ONCE, 1 dose, On 07/25/23 at 1330, STAT [facility] metoclopram jerilyn HCl (REGLAN) injection 10 mg 2022-09 19:30: 00 07-25 18:34 :00 No 10mg 10 mg, Slow IV Push, ONCE, 1 dose, On 07/25/23 at 1330, VASILIY [facility] morpHINE (4 mg/mL) injection 4 mg 2022-09 17:30: 00 07-25 16:43 :00 No 4mg 4 mg, Slow IV Push, ONCE, 1 dose, On 07/25/23 at 1130, STAT [facility] ondansetron (ZOFRAN (PF)) injection 4 mg 2022-09 17:15: 00 07-25 16:43 :00 No 4mg 4 mg, Slow IV Push, ONCE, 1 dose, On 07/25/23 at 1115, VASILIY [facility] NaCl 0.9% (NS) bolus infusion 1,000 mL 2022-09 17:15: 00 07-25 18:54 :00 No 1000mL at 999 mL/hr, 1,000 mL, IV Infusion, ONCE, 1 dose, On 07/25/23 at 1115, STAT [facility] metoclopram jerilyn HCl 10 mg tablet 2022-09 00:00: 00 Yes [id number] 10mg Take 1 tablet by mouth every 6 (six) hours. [facility] metoclopram jerilyn HCl 10 mg tablet 2022-09 00:00: 00 Yes [id number] 10mg Take 1 tablet by mouth every 6 (six) hours. [facility] metoclopram jerilyn HCl 10 mg tablet 2022-09 00:00: 00 Yes [id number] 10mg Take 1 tablet by mouth every 6 (six) hours. [facility] sodium chloride (NS) injection 5 mL 2022-09 19:45: 30 Yes 5mL 5 mL, Intravenou s, PRN, Starting on Thu07/24/23 at 1345, Until Discontinu ed, Routine, IV line flushing [facility] dicyclomine 20 mg tablet 2022-09 00:00: 00 Yes [id number] 20mg Take 1 tablet by mouth 4 (four) times daily as needed for Abdominal pain. [facility] dicyclomine 20 mg tablet 2022-09 00:00: 00 Yes [id number] 20mg Take 1 tablet by mouth 4 (four) times daily as needed for Abdominal pain. [facility] dicyclomine 20 mg tablet 2022-09 00:00: 00 Yes [id number] 20mg Take 1 tablet by mouth 4 (four) times daily as needed for Abdominal pain. [facility] dicyclomine 20 mg tablet 2022-09 00:00: 00 Yes [id number] 20mg Take 1 tablet by mouth 4 (four) times daily as needed for Abdominal pain. [facility] ketorolac (TORADOL) injection 15 mg 2022-09 0-29 03:15: 00 07-12 02:32 :00 No 15mg 15 mg, Slow IV Push, ONCE, 1 dose, On 07/11/23 at 2215, Routine [facility] methocarbam oL (ROBAXIN) tablet 1,000 mg 2022-09 02:30: 00 07-12 02:32 :00 No 1000mg 1,000 mg, Oral, ONCE, 1 dose, On 07/11/23 at 2130, [facility] famotidine (PEPCID (PF)) injection 20 mg 2022-09 02:30: 00 07-12 02:32 :00 No 20mg 20 mg, Slow IV Push, ONCE, 1 dose, On 07/11/23 at 2130, VASILIY [facility] aspirin chewable tablet 324 mg 2022-09 02:15: 00 07-12 02:31 :00 No 324mg 324 mg, Oral, ONCE, 1 dose, On 07/11/23 at 2115, STAT [facility] HYDROcodone -acetaminop hen 5-325 mg tablet 2022-09 00:00: 00 07-15 04:59 :00 Yes [id number] 1{tbl} Take 1 tablet by mouth every 4 (four) hours as needed for Pain (scale 7-10) for up to 3 days. Indication s: acute pain [facility] omeprazole 40 mg capsule 2022-09 00:00: 00 Yes [id number] 40mg Take 1 capsule by mouth in the morning and 1 capsule in the evening. [facility] peg-electro lyte soln 236-22.74-6 .74 -5.86 gram solution 2022-09 00:00: 00 Yes [id number] Take as directed before colonoscop y [facility] omeprazole 40 mg capsule 2022-09 00:00: 00 Yes [id number] 40mg Take 1 capsule by mouth in the morning and 1 capsule in the evening. [facility] peg-electro lyte soln 236-22.74-6 .74 -5.86 gram solution 2022-09 00:00: 00 Yes [id number] Take as directed before colonoscop y [facility] omeprazole 40 mg capsule 2022-09 00:00: 00 Yes [id number] 40mg Take 1 capsule by mouth in the morning and 1 capsule in the evening. [facility] peg-electro lyte soln 236-22.74-6 .74 -5.86 gram solution 2022-09 0 00:00: 00 Yes [id number] Take as directed before colonoscop y [facility] omeprazole 40 mg capsule 2022-09 0 00:00: 00 Yes [id number] 40mg Take 1 capsule by mouth in the morning and 1 capsule in the evening. [facility] peg-electro lyte soln 236-22.74-6 .74 -5.86 gram solution 2022-09 0 00:00: 00 Yes [id number] Take as directed [facility] 20[facility]09 0 00:00: 00 Yes [id number] 40mg Take 1 capsule by mouth in the morning and 1 capsule in the evening. [facility] peg-electro lyte soln 236-22.74-6 .74 -5.86 gram solution 2022-09 0 00:00: 00 Yes [id number] Take as directed before colonoscop y [facility] omeprazole 40 mg capsule 2022-09 0 00:00: 00 Yes [id number] 40mg Take 1 capsule by mouth in the morning and 1 capsule in the evening. [facility] peg-electro lyte soln 236-22.74-6 .74 -5.86 gram solution 2022-09 0 00:00: 00 Yes [id number] Take as directed before colonoscop y [facility] omeprazole 40 mg capsule 2022-09 0 00:00: 00 Yes [id number] 40mg Take 1 capsule by mouth in the morning and 1 capsule in the evening. [facility] peg-electro lyte soln 236-22.74-6 .74 -5.86 gram solution 2022-09 0 00:00: 00 Yes [id number] Take as directed before colonoscop y [facility] omeprazole 40 mg capsule 2022- 0 00:00: 00 Yes [id number] 40mg Take 1 capsule by mouth in the morning and 1 capsule in the evening. [facility] peg-electro lyte soln 236-22.74-6 .74 -5.86 gram solution 2022-09 0- 00:00: 00 Yes [id number] Take as directed before colonoscop y [facility] omeprazole 40 mg capsule 2022-09 0 00:00: 00 Yes [id number] 40mg Take 1 capsule by mouth in the morning and 1 capsule in the evening. [facility] peg-electro lyte soln 236-22.74-6 .74 -5.86 gram solution 2022-09 0 00:00: 00 Yes [id number] Take as directed [facility]op [facility] 2022-09 0 00:00: 00 Yes [id number] 40mg Take 1 capsule by mouth in the morning and 1 capsule in the evening. [facility] peg-electro lyte soln 236-22.74-6 .74 -5.86 gram solution 2022-09 0 00:00: 00 Yes [id number] Take as directed before [facility]oscop y [facility] capsule 2022-09 0 00:00: 00 Yes [id number] 40mg Take 1 capsule by mouth in the morning and 1 capsule in the evening. [facility] peg-electro lyte soln 236-22.74-6 .74 -5.86 gram solution 2022-09 0 00:00: 00 Yes [id number] Take as directed before colonoscop y [facility] omeprazole 40 mg capsule 2022-09 0 00:00: 00 Yes [id number] 40mg Take 1 capsule by mouth in the morning and 1 capsule in the evening. [facility] peg-electro lyte soln 236-22.74-6 .74 -5.86 gram solution 2022-09 0 00:00: 00 Yes [id number] Take as directed before colonoscop y [facility] Lisinopril 10 MG oral Tablet 2022-09 0 08:45: 58 Yes 10mg Take 1 tablet (10 mg total) by mouth daily. [facility] Tamsulosin HCl 0.4 MG oral Capsule 2022-09 0- 00:00: 00 Yes .4mg Take 1 capsule (0.4 mg total) by mouth every night at bedtime. [facility] morpHINE (4 mg/mL) injection 4 mg 2022-09 13:45: 00 07-03 12:49 :00 No 4mg 4 mg, Slow IV Push, ONCE, 1 dose, On Thu07/03/23 at 0845, VASILIY [facility] famotidine (PEPCID (PF)) injection 20 mg 2022-09 13:00: 00 07-03 12:49 :00 No 20mg 20 mg, Slow IV Push, ONCE, 1 dose, On Thu07/03/23 at 0800, VASILIY [facility] iohexol (OMNIPAQUE 350 BULK-100 mL) injection 80 mL 2022-09 10:40: 00 07-03 10:40 :00 No [id number] 80mL 80 mL, Intravenou s, ONCE, 1 dose, On Thu07/03/23 at 0545, Routine [facility] ondansetron (ZOFRAN (PF)) injection 4 mg 2022-09 10:15: 00 07-03 10:20 :00 No 4mg 4 mg, Slow IV Push, ONCE, 1 dose, On Thu07/03/23 at 0515, VASILIY [facility] morpHINE (4 mg/mL) injection 4 mg 2022-09 10:15: 00 07-03 10:20 :00 No 4mg 4 mg, Slow IV Push, ONCE, 1 dose, On Thu07/03/23 at 0515, STAT [facility] Pantoprazol e Sodium 20 MG oral Tablet Delayed Response 2022-09 00:00: 00 Yes 20mg Take 1 tablet (20 mg total) by mouth every morning. [facility] HYDROcodone -Acetaminop hen (NORCO) 5-325 MG oral Tablet 2022-09 00:00: 00 Yes TAKE 1 TABLET BY MOUTH EVERY 4 HOURS NEEDED FOR PAIN (SCALE 4-6) [facility] HYDROcodone -acetaminop hen 5-325 mg tablet 2022-09 00:00: 00 Yes [id number] 1{tbl} Take 1 tablet by mouth every 4 (four) hours as needed for Pain (scale 4-6) for up to 10 doses. Indication s: acute pain [facility] famotidine (PEPCID) 20 mg tablet 2022-09 00:00: 00 Yes [id number] 20mg Take 1 tablet by mouth in the morning and 1 tablet in the evening. [facility] pantoprazol e (PROTONIX) 20 mg EC tablet 2022-09 00:00: 00 Yes [id number] 20mg Take 1 tablet by mouth in the morning. [facility] HYDROcodone -acetaminop hen 5-325 mg tablet 2022-09 00:00: 00 Yes [id number] 1{tbl} Take 1 tablet by mouth every 4 (four) hours as needed for Pain (scale 4-6) for up to 10 doses. Indication s: acute pain [facility] HYDROcodone -acetaminop hen 5-325 mg tablet 2022-09 00:00: 00 Yes [id number] 1{tbl} Take 1 tablet by mouth every 4 (four) hours as needed for Pain (scale 4-6) for up to 10 doses. Indication s: acute pain [facility] HYDROcodone -acetaminop hen 5-325 mg tablet 2022-09 00:00: 00 Yes [id number] 1{tbl} Take 1 tablet by mouth every 4 (four) hours as needed for Pain (scale 4-6) for up to 10 doses. Indication s: acute pain [facility] HYDROcodone -acetaminop hen 5-325 mg tablet 2022-09 0 00:00: 00 Yes [id number] 1{tbl} Take 1 tablet by mouth every 4 (four) hours as needed for Pain (scale 4-6) for up to 10 doses. Indication s: acute pain [facility] HYDROcodone -acetaminop hen 5-325 mg tablet 2022-09 0 00:00: 00 Yes [id number] 1{tbl} Take 1 tablet by mouth every 4 (four) hours as needed for Pain (scale 4-6) for up to 10 doses. Indication s: acute pain [facility] HYDROcodone -acetaminop hen 5-325 mg tablet 2022-09 0-20 00:00: 00 Yes [id number] 1{tbl} Take 1 tablet by mouth every 4 (four) hours as needed for Pain (scale 4-6) for up to 10 doses. Indication s: acute pain [facility] HYDROcodone -acetaminop hen 5-325 mg tablet 2022-09 0-20 00:00: 00 Yes [id number] 1{tbl} Take 1 tablet by mouth every 4 (four) hours as needed for Pain (scale 4-6) for up to 10 doses. Indication s: acute pain [facility] HYDROcodone -acetaminop hen 5-325 mg tablet 2022-09 0 00:00: 00 Yes [id number] 1{tbl} Take 1 tablet by mouth every 4 (four) hours as needed for Pain (scale 4-6) for up to 10 doses. Indication s: acute pain [facility] HYDROcodone -acetaminop hen 5-325 mg tablet 2022-09 0 00:00: 00 Yes [id number] 1{tbl} Take 1 tablet by mouth every 4 (four) hours as needed for Pain (scale 4-6) for up to 10 doses. Indication s: acute pain [facility] HYDROcodone -acetaminop hen 5-325 mg tablet 2022-09 0 00:00: 00 Yes [id number] 1{tbl} Take 1 tablet by mouth every 4 (four) hours as needed for Pain (scale 4-6) for up to 10 doses. Indication s: acute pain [facility] HYDROcodone -acetaminop hen 5-325 mg tablet 2022-09 0-20 00:00: 00 Yes [id number] 1{tbl} Take 1 tablet by mouth every 4 (four) hours as needed for Pain (scale 4-6) for up to 10 doses. Indication s: acute pain [facility] HYDROcodone -acetaminop hen 5-325 mg tablet 2022-09 0-20 00:00: 00 Yes [id number] 1{tbl} Take 1 tablet by mouth every 4 (four) hours as needed for Pain (scale 4-6) for up to 10 doses. Indication s: acute pain [facility] famotidine (PEPCID) 20 mg tablet 2022-09 0-20 00:00: 00 07-10 00:00 :00 No [id number] 20mg Take 1 tablet by mouth in the morning and 1 tablet in the evening. [facility] pantoprazol e (PROTONIX) 20 mg EC tablet 2022-09 0 00:00: 00 07-10 00:00 :00 No [id number] 20mg Take 1 tablet by mouth in the morning. [facility] famotidine (PEPCID) 20 mg tablet 2022-09 00:00: 00 07-10 00:00 :00 No [id number] 20mg Take 1 tablet by mouth in the morning and 1 tablet in the evening. [facility] pantoprazol e (PROTONIX) 20 mg EC tablet 2022-09 00:00: 00 07-10 00:00 :00 No [id number] 20mg Take 1 tablet by mouth in the morning. [facility] famotidine (PEPCID) 20 mg tablet 2022-09 0 00:00: 00 07-10 00:00 :00 No [id number] 20mg Take 1 tablet by mouth in the morning and 1 tablet in the evening. [facility] pantoprazol e (PROTONIX) 20 mg EC tablet 2022-09 0 00:00: 00 07-10 00:00 :00 No [id number] 20mg Take 1 tablet by mouth in the morning. [facility] Lisinopril 10 MG oral Tablet 05-20 15:08: 12 Yes 10mg Take 1 tablet (10 mg total) by mouth daily. [facility] Tamsulosin HCl 0.4 MG oral Capsule 05-20 00:00: 00 Yes .4mg Take 1 capsule (0.4 mg total) by mouth every night at bedtime. [facility] Tamsulosin HCl 0.4 MG oral Capsule 9-06 00:00: 00 07-08 00:00 :00 No .4mg Take 1 capsule (0.4 mg total) by mouth every night at bedtime. [facility] iopamidol (ISOVUE 370-500 mL) injection 80 mL 05-08 03:15: 00 05-08 02:12 :00 No [id number] 80mL 80 mL, Intravenou s, ONCE, 1 dose, On Carrie 05/07/23 at 2215, Routine [facility] morpHINE (4 mg/mL) injection 4 mg 05-08 01:00: 00 05-08 01:38 :00 No 4mg 4 mg, Slow IV Push, ONCE, 1 dose, On Carrie 05/07/23 at 2000, [facility] NaCl 0.9% (NS) bolus infusion 1,000 mL 05-08 01:00: 00 05-08 04:22 :00 No 1000mL at 999 mL/hr, 1,000 mL, IV Infusion, ONCE, 1 dose, On Carrie 05/07/23 at 2000, [facility] NaCl 0.9% (NS) bolus infusion 1,000 mL 05-02 05:15: 00 05-02 05:29 :00 No 1000mL at 999 mL/hr, 1,000 mL, IV Infusion, ONCE, 1 dose, On 05/02/23 at 0015, STAT [facility] famotidine (PEPCID (PF)) injection 20 mg 05-02 04:15: 00 05-02 04:21 :00 No 20mg 20 mg, Slow IV Push, ONCE, 1 dose, On Thu05/01/23 at 2315, [facility] maalox:diph enhydrAMINE :lidocaine 2 % viscous 1:1:1 ([facility]) oral suspension 15 mL 05-02 04:15: 00 05-02 04:21 :00 No 15mL 15 mL, Oral, ONCE, 1 dose, On Thu05/01/23 at 2315, VASILIY [facility] ondansetron (ZOFRAN (PF)) injection 4 mg 05-02 04:15: 00 05-02 03:18 :00 No 4mg 4 mg, Slow IV Push, ONCE, 1 dose, On Thu05/01/23 at 2315, VASILIY [facility] NaCl 0.9% (NS) bolus infusion 1,000 mL 05-02 04:15: 00 05-02 04:15 :00 No 1000mL at 999 mL/hr, 1,000 mL, IV Infusion, ONCE, 1 dose, On Thu05/01/23 at 2315, STAT [facility] metoclopram jerilyn HCl 10 mg tablet 05-01 00:00: 00 Yes [id number] 10mg Take 1 tablet by mouth every 6 (six) hours. [facility] pantoprazol e (PROTONIX) 20 mg EC tablet 05-01 00:00: 00 Yes [id number] 20mg Take 1 tablet by mouth in the morning. [facility] metoclopram jerilyn HCl 10 mg tablet 05-01 00:00: 00 Yes [id number] 10mg Take 1 tablet by mouth every 6 (six) hours. [facility] pantoprazol e (PROTONIX) 20 mg EC tablet 05-01 00:00: 00 Yes [id number] 20mg Take 1 tablet by mouth in the morning. [facility] metoclopram jerilyn HCl 10 mg tablet 05-01 00:00: 00 Yes [id number] 10mg Take 1 tablet by mouth every 6 (six) hours. [facility] metoclopram jerilyn HCl 10 mg tablet 05-01 00:00: 00 Yes [id number] 10mg Take 1 tablet by mouth every 6 (six) hours. [facility] metoclopram jerilyn HCl 10 mg tablet 05-01 00:00: 00 Yes [id number] 10mg Take 1 tablet by mouth every 6 (six) hours. [facility] metoclopram jerilyn HCl 10 mg tablet 3-0 8-18 00:00: 00 Yes [id number] 10mg Take 1 tablet by mouth every 6 (six) hours. [facility] metoclopram jerilyn HCl 10 mg tablet 3-0 8-18 00:00: 00 Yes [id number] 10mg Take 1 tablet by mouth every 6 (six) hours. [facility] metoclopram jerilyn HCl 10 mg tablet 3-0 8-18 00:00: 00 Yes [id number] 10mg Take 1 tablet by mouth every 6 (six) hours. [facility] metoclopram jerilyn HCl 10 mg tablet 3-0 8-18 00:00: 00 Yes [id number] 10mg Take 1 tablet by mouth every 6 (six) hours. [facility] metoclopram jerilyn HCl 10 mg tablet 3-0 8-18 00:00: 00 Yes [id number] 10mg Take 1 tablet by mouth every 6 (six) hours. [facility] metoclopram jerilyn HCl 10 mg tablet 2022-0 8-18 00:00: 00 Yes [id number] 10mg Take 1 tablet by mouth every 6 (six) hours. [facility] metoclopram jerilyn HCl 10 mg tablet 2022-0 8-18 00:00: 00 Yes [id number] 10mg Take 1 tablet by mouth every 6 (six) hours. [facility] metoclopram jerilyn HCl 10 mg tablet 3-0 8-18 00:00: 00 Yes [id number] 10mg Take 1 tablet by mouth every 6 (six) hours. [facility] metoclopram jerilyn HCl 10 mg tablet 3-0 8-18 00:00: 00 Yes [id number] 10mg Take 1 tablet by mouth every 6 (six) hours. [facility] metoclopram jerilyn HCl 10 mg tablet 3-0 8-18 00:00: 00 Yes [id number] 10mg Take 1 tablet by mouth every 6 (six) hours. [facility] pantoprazol e (PROTONIX) 20 mg EC tablet 3-0 8-18 00:00: 00 3- 10-20 00:00 :00 No [id number] 20mg Take 1 tablet by mouth in the morning. [facility] iopamidol (ISOVUE 370-500 mL) injection 70 mL 04-22 16:21: 00 04-22 16:21 :00 No [id number] 70mL 70 mL, Intravenou s, ONCE, 1 dose, On Thu04/22/23 at 1145, Routine [facility] haloperidol lactate (HALDOL) injection 2.5 mg 04-22 16:00: 00 04-22 16:01 :00 No 2.5mg 2.5 mg, Intravenou s, ONCE, 1 dose, On Thu04/22/23 at 1100, STAT [facility] NaCl 0.9% (NS) bolus infusion 500 mL 04-22 14:45: 00 04-22 15:30 :00 No 500mL at 999 mL/hr, 500 mL, IV Infusion, ONCE, 1 dose, On Thu04/22/23 at 0945, STAT [facility] maalox:diph enhydrAMINE :lidocaine 2 % viscous 1:1:1 ([facility]) oral suspension 15 mL 04-22 13:00: 00 04-22 12:55 :00 No 15mL 15 mL, Oral, ONCE, 1 dose, On Thu04/22/23 at 0800, Routine [facility] NaCl 0.9% (NS) IV infusion 1,000 mL 04-22 12:45: 00 Yes 1000mL at 999 mL/hr, Intravenou s, CONTINUOUS , Starting on Thu04/22/23 at 0745, Until Discontinu ed, Routine [facility] NaCl 0.9% (NS) bolus infusion 1,000 mL 04-22 10:30: 00 04-22 11:30 :00 No 1000mL at 999 mL/hr, 1,000 mL, IV Infusion, ONCE, 1 dose, On Thu04/22/23 at 0530, STAT [facility] ketorolac (TORADOL) injection 30 mg 04-22 10:30: 00 04-22 09:21 :00 No 30mg 30 mg, Slow IV Push, ONCE, 1 dose, On Thu04/22/23 at 0530, Routine [facility] diphenhydrA MINE (BENADRYL) injection 25 mg 04-22 09:30: 00 04-22 09:21 :00 No 25mg 25 mg, Slow IV Push, ONCE, 1 dose, On Thu04/22/23 at 0430, STAT [facility] metoclopram jerilyn HCl (REGLAN) injection 10 mg 04-22 09:30: 00 04-22 09:21 :00 No 10mg 10 mg, Slow IV Push, ONCE, 1 dose, On Thu04/22/23 at 0430, VASILIY [facility] NaCl 0.9% (NS) bolus infusion 1,000 mL 04-22 09:15: 00 04-22 10:28 :00 No 1000mL at 999 mL/hr, 1,000 mL, IV Infusion, ONCE, 1 dose, On Thu04/22/23 at 0415, STAT [facility] Promethazin e HCl (PHENERGAN) 25 MG oral Tablet 04-22 00:00: 00 Yes 25mg Q.25D Take 1 tablet (25 mg total) by mouth every 6 hours as needed. [facility] Tramadol HCl (ULTRAM) 50 MG oral Tablet 04-22 00:00: 00 Yes 50mg Q.25D Take 1 tablet (50 mg total) by mouth every 6 hours as needed FOR PAIN. [facility] ondansetron (ZOFRAN) 4 mg tablet 04-22 00:00: 00 Yes [id number] 05 4mg Take 1 tablet by mouth every 8 (eight) hours as needed for Nausea and Vomiting (N/V). [facility] proMETHazin e 25 mg tablet 04-22 00:00: 00 Yes [id number] 25mg Take 1 tablet by mouth every 6 (six) hours as needed for Nausea and Vomiting (N/V) or N/V unresponsi ve to Ondansetro n. [facility] ondansetron (ZOFRAN) 4 mg tablet 04-22 00:00: 00 Yes [id number] 05 4mg Take 1 tablet by mouth every 8 (eight) hours as needed for Nausea and Vomiting (N/V). [facility] proMETHazin e 25 mg tablet 04-22 00:00: 00 Yes [id number] 25mg Take 1 tablet by mouth every 6 (six) hours as needed for Nausea and Vomiting (N/V) or N/V unresponsi ve to Ondansetro n. [facility] ondansetron (ZOFRAN) 4 mg tablet 04-22 00:00: 00 Yes [id number] 05 4mg Take 1 tablet by mouth every 8 (eight) hours as needed for Nausea and Vomiting (N/V). [facility] proMETHazin e 25 mg tablet 04-22 00:00: 00 Yes [id number] 25mg Take 1 tablet by mouth every 6 (six) hours as needed for Nausea and Vomiting (N/V) or N/V unresponsi ve to Ondansetro n. [facility] ondansetron (ZOFRAN) 4 mg tablet 04-22 00:00: 00 Yes [id number] 05 4mg Take 1 tablet by mouth every 8 (eight) hours as needed for Nausea and Vomiting (N/V). [facility] proMETHazin e 25 mg tablet 04-22 00:00: 00 Yes [id number] 25mg Take 1 tablet by mouth every 6 (six) hours as needed for Nausea and Vomiting (N/V) or N/V unresponsi ve to Ondansetro n. [facility] ondansetron (ZOFRAN) 4 mg tablet 04-22 00:00: 00 Yes [id number] 05 4mg Take 1 tablet by mouth every 8 (eight) hours as needed for Nausea and Vomiting (N/V). [facility] proMETHazin e 25 mg tablet 04-22 00:00: 00 Yes [id number] 25mg Take 1 tablet by mouth every 6 (six) hours as needed for Nausea and Vomiting (N/V) or N/V unresponsi ve to Ondansetro n. [facility] ondansetron (ZOFRAN) 4 mg tablet 04-22 00:00: 00 Yes [id number] 05 4mg Take 1 tablet by mouth every 8 (eight) hours as needed for Nausea and Vomiting (N/V). [facility] proMETHazin e 25 mg tablet 04-22 00:00: 00 Yes [id number] 25mg Take 1 tablet by mouth every 6 (six) hours as needed for Nausea and Vomiting (N/V) or N/V unresponsi ve to Ondansetro n. [facility] ondansetron (ZOFRAN) 4 mg tablet 04-22 00:00: 00 Yes [id number] 05 4mg Take 1 tablet by mouth every 8 (eight) hours as needed for Nausea and Vomiting (N/V). [facility] proMETHazin e 25 mg tablet 04-22 00:00: 00 Yes [id number] 25mg Take 1 tablet by mouth every 6 (six) hours as needed for Nausea and Vomiting (N/V) or N/V unresponsi ve to Ondansetro n. [facility] Ondansetron HCl 4 MG oral Tablet 04-22 00:00: 00 Yes TAKE 1 TABLET BY MOUTH EVERY 8 HOURS NEEDED FOR NAUSEA AND VOMITING [facility] ondansetron (ZOFRAN) 4 mg tablet 04-22 00:00: 00 Yes [id number] 05 4mg Take 1 tablet by mouth every 8 (eight) hours as needed for Nausea and Vomiting (N/V). [facility] proMETHazin e 25 mg tablet 04-22 00:00: 00 Yes [id number] 25mg Take 1 tablet by mouth every 6 (six) hours as needed for Nausea and Vomiting (N/V) or N/V unresponsi ve to Ondansetro n. [facility] ondansetron (ZOFRAN) 4 mg tablet 04-22 00:00: 00 Yes [id number] 05 4mg Take 1 tablet by mouth every 8 (eight) hours as needed for Nausea and Vomiting (N/V). [facility] proMETHazin e 25 mg tablet 04-22 00:00: 00 Yes [id number] 25mg Take 1 tablet by mouth every 6 (six) hours as needed for Nausea and Vomiting (N/V) or N/V unresponsi ve to Ondansetro n. [facility] ondansetron (ZOFRAN) 4 mg tablet 04-22 00:00: 00 Yes [id number] 05 4mg Take 1 tablet by mouth every 8 (eight) hours as needed for Nausea and Vomiting (N/V). [facility] proMETHazin e 25 mg tablet 04-22 00:00: 00 Yes [id number] 25mg Take 1 tablet by mouth every 6 (six) hours as needed for Nausea and Vomiting (N/V) or N/V unresponsi ve to Ondansetro n. [facility] ondansetron (ZOFRAN) 4 mg tablet 04-22 00:00: 00 Yes [id number] 05 4mg Take 1 tablet by mouth every 8 (eight) hours as needed for Nausea and Vomiting (N/V). [facility] proMETHazin e 25 mg tablet 04-22 00:00: 00 Yes [id number] 25mg Take 1 tablet by mouth every 6 (six) hours as needed for Nausea and Vomiting (N/V) or N/V unresponsi ve to Ondansetro n. [facility] ondansetron (ZOFRAN) 4 mg tablet 04-22 00:00: 00 Yes [id number] 05 4mg Take 1 tablet by mouth every 8 (eight) hours as needed for Nausea and Vomiting (N/V). [facility] proMETHazin e 25 mg tablet 04-22 00:00: 00 Yes [id number] 25mg Take 1 tablet by mouth every 6 (six) hours as needed for Nausea and Vomiting (N/V) or N/V unresponsi ve to Ondansetro n. [facility] ondansetron (ZOFRAN) 4 mg tablet 2022-0 04-22 00:00: 00 Yes [id number] 05 4mg Take 1 tablet by mouth every 8 (eight) hours as needed for Nausea and Vomiting (N/V). [facility] proMETHazin e 25 mg tablet 04-22 00:00: 00 Yes [id number] 25mg Take 1 tablet by mouth every 6 (six) hours as needed for Nausea and Vomiting (N/V) or N/V unresponsi ve to Ondansetro n. [facility] ondansetron (ZOFRAN) 4 mg tablet 04-22 00:00: 00 Yes [id number] 05 4mg Take 1 tablet by mouth every 8 (eight) hours as needed for Nausea and Vomiting (N/V). [facility] proMETHazin e 25 mg tablet 04-22 00:00: 00 Yes [id number] 25mg Take 1 tablet by mouth every 6 (six) hours as needed for Nausea and Vomiting (N/V) or N/V unresponsi ve to Ondansetro n. [facility] ondansetron (ZOFRAN) 4 mg tablet 04-22 00:00: 00 Yes [id number] 05 4mg Take 1 tablet by mouth every 8 (eight) hours as needed for Nausea and Vomiting (N/V). [facility] proMETHazin e 25 mg tablet 04-22 00:00: 00 Yes [id number] 25mg Take 1 tablet by mouth every 6 (six) hours as needed for Nausea and Vomiting (N/V) or N/V unresponsi ve to Ondansetro n. [facility] ondansetron (ZOFRAN) 4 mg tablet 0 04-22 00:00: 00 Yes [id number] 05 4mg Take 1 tablet by mouth every 8 (eight) hours as needed for Nausea and Vomiting (N/V). [facility] proMETHazin e 25 mg tablet 04-22 00:00: 00 Yes [id number] 25mg Take 1 tablet by mouth every 6 (six) hours as needed for Nausea and Vomiting (N/V) or N/V unresponsi ve to Ondansetro n. [facility] Promethazin e HCl (PHENERGAN) 25 MG oral Tablet 04-22 00:00: 00 Yes 25mg Q.25D Take 1 tablet (25 mg total) by mouth every 6 hours as needed. [facility] Tramadol HCl (ULTRAM) 50 MG oral Tablet 04-22 00:00: 00 Yes 50mg Q.25D Take 1 tablet (50 mg total) by mouth every 6 hours as needed FOR PAIN. [facility] Ondansetron HCl 4 MG oral Tablet 04-22 00:00: 00 Yes TAKE 1 TABLET BY MOUTH EVERY 8 HOURS NEEDED FOR NAUSEA AND VOMITING [facility] traMADoL 50 mg tablet 04-22 00:00: 00 04-30 04:59 :00 No [id number] 50mg Take 1 tablet by mouth every 6 (six) hours as needed for Pain (scale 7-10) for up to 7 days. Indication s: acute pain [facility] lipase-prot ease-amylas e (CREON) 12,000-38,0 00 -60,000 unit capsule 2 capsule 04-16 14:15: 00 Yes 2{capsu le} 2 capsule, Oral, ONCE, 1 dose, On Carrie 04/16/23 at 0915, Routine [facility] lipase-prot ease-amylas e (CREON) 12,000-38,0 00 -60,000 unit capsule 2 capsule 04-16 14:15: 00 Yes 2{capsu le} 2 capsule, Oral, ONCE, 1 dose, On Carrie 04/16/23 at 0915, Routine [facility] famotidine (PEPCID (PF)) injection 20 mg 04-16 13:30: 00 04-16 12:33 :00 No 20mg 20 mg, Slow IV Push, ONCE NOW, 1 dose, On Carrie 04/16/23 at 0830, VASILIY [facility] dicyclomine (BENTYL) injection 20 mg 04-16 13:30: 00 04-16 12:34 :00 No 20mg 20 mg, Intramuscu lar, ONCE NOW, 1 dose, On Carrie 04/16/23 at 0830, Routine [facility] famotidine (PEPCID (PF)) injection 20 mg 04-16 13:30: 00 04-16 12:33 :00 No 20mg 20 mg, Slow IV Push, ONCE NOW, 1 dose, On Carrie 04/16/23 at 0830, VASILIY [facility] dicyclomine (BENTYL) injection 20 mg 04-16 13:30: 00 04-16 12:34 :00 No 20mg 20 mg, Intramuscu lar, ONCE NOW, 1 dose, On Carrie 04/16/23 at 0830, Routine [facility] enalaprilat (VASOTEC I.V.) injection 1.25 mg 04-16 13:15: 04-16 13:17 :00 No 1.25mg 1.25 mg, Slow IV Push, ONCE, 1 dose, On Carrie 04/16/23 at 0815, STAT [facility] lactulose (CEPHULAC) solution 45 mL 04-16 13:15: 00 04-16 13:18 :00 No 45mL 45 mL, Oral, ONCE, 1 dose, On [facility] 30 mg 04-16 13:15: 04-16 12:32 :00 No 30mg 30 mg, Slow IV Push, ONCE NOW, 1 dose, On [place] [facility]16/23 [facility] 0815[facility] 0.9% (NS) bolus infusion 1,000 mL 04-16 13:15: 00 04-16 13:54 :00 No 1000mL at 999 mL/hr, 1,000 mL, IV Piggyback, ONCE, 1 dose, On Carrie 04/16/23 at 0815, STAT [facility] enalaprilat (VASOTEC I.V.) injection 1.25 mg 04-16 13:15: 00 04-16 13:17 :00 No 1.25mg 1.25 mg, Slow IV Push, ONCE, 1 dose, On Carrie 04/16/23 at 0815, STAT [facility] lactulose (CEPHULAC) solution 45 mL 04-16 13:15: 00 04-16 13:18 :00 No 45mL 45 mL, Oral, ONCE, 1 dose, On Carrie 04/16/23 at 0815, VASILIY [facility] ketorolac (TORADOL) injection 30 mg 04-16 13:15: 04-16 12:32 :00 No 30mg 30 mg, Slow IV Push, ONCE NOW, 1 dose, On Carrie 04/16/23 at 0815, VASILIY [facility] NaCl 0.9% (NS) bolus infusion 1,000 mL 04-16 13:15: 04-16 13:54 :00 No 1000mL at 999 mL/hr, 1,000 mL, IV Piggyback, ONCE, 1 dose, On Carrie 04/16/23 at 0815, STAT [facility] Famotidine (PEPCID) 20 MG oral tablet 04-16 00:00: 00 Yes 20mg Take 1 tablet (20 mg total) by mouth 2 times daily. [facility] Bisacodyl (DULCOLAX) 5 MG oral Tablet Delayed Response 04-16 00:00: 00 Yes 5mg QD Take 1 tablet (5 mg total) by mouth daily as needed. [facility] lipase-prot ease-amylas e (CREON) 3,000-9,500 - 15,000 unit capsule 04-16 00:00: 00 Yes [id number] 3000U Take 1 capsule by mouth in the morning and 1 capsule at noon and 1 capsule in the evening. Take with meals. [facility] hyoscyamine sulfate (LEVSIN/SL) 0.125 mg sublingual tablet 04-16 00:00: [id number] 2 tablets under the tongue every 6 (six) hours as needed (Abdominal pain or cramping). [facility] famotidine (PEPCID) 20 mg tablet 04-16 00:00: 00 Yes [id number] 20mg Take 1 tablet by mouth in the morning and 1 tablet in the evening. [facility] bisacodyL 5 mg EC tablet 04-16 00:00: 00 Yes [id number] 5mg Take 1 tablet by mouth once daily as needed for Constipati on. [facility] lipase-prot ease-amylas e (CREON) 3,000-9,500 - 15,000 unit capsule 04-16 00:00: 00 Yes [id number] 3000U Take 1 capsule by mouth in the morning and 1 capsule at noon and 1 capsule in the evening. Take with meals. [facility] hyoscyamine sulfate (LEVSIN/SL) 0.125 mg sublingual tablet 04-16 00:00: [id number] 2 tablets under the tongue every 6 (six) hours as needed (Abdominal pain or cramping). [facility] famotidine (PEPCID) 20 mg tablet 04-16 00:00: 00 Yes [id number] 20mg Take 1 tablet by mouth in the morning and 1 tablet in the evening. [facility] bisacodyL 5 mg EC tablet 04-16 00:00: 00 Yes [id number] 5mg Take 1 tablet by mouth once daily as needed for Constipati on. [facility] lipase-prot ease-amylas e (CREON) 3,000-9,500 - 15,000 unit capsule 04-16 00:00: 00 Yes [id number] 3000U Take 1 capsule by mouth in the morning and 1 capsule at noon and 1 capsule in the evening. Take with meals. [facility] hyoscyamine sulfate (LEVSIN/SL) 0.125 mg sublingual tablet 04-16 00:00: [id number] 2 tablets under the tongue every 6 (six) hours as needed (Abdominal pain or cramping). [facility] bisacodyL 5 mg EC tablet 04-16 00:00: 00 Yes [id number] 5mg Take 1 tablet by mouth once daily as needed for Constipati on. [facility] lipase-prot ease-amylas e (CREON) 3,000-9,500 - 15,000 unit capsule 04-16 00:00: 00 Yes [id number] 3000U Take 1 capsule by mouth in the morning and 1 capsule at noon and 1 capsule in the evening. Take with meals. [facility] hyoscyamine sulfate (LEVSIN/SL) 0.125 mg sublingual tablet 04-16 00:00: [id number] 2 tablets under the tongue every 6 (six) hours as needed (Abdominal pain or cramping). [facility] bisacodyL 5 mg EC tablet 04-16 00:00: 00 Yes [id number] 5mg Take 1 tablet by mouth once daily as needed for Constipati on. [facility] lipase-prot ease-amylas e (CREON) 3,000-9,500 - 15,000 unit capsule 04-16 00:00: 00 Yes [id number] 3000U Take 1 capsule by mouth in the morning and 1 capsule at noon and 1 capsule in the evening. Take with meals. [facility] hyoscyamine sulfate (LEVSIN/SL) 0.125 mg sublingual tablet 04-16 00:00: [id number] 2 tablets under the tongue every 6 (six) hours as needed (Abdominal pain or cramping). [facility] bisacodyL 5 mg EC tablet 04-16 00:00: 00 Yes [id number] 5mg Take 1 tablet by mouth once daily as needed for Constipati on. [facility] lipase-prot ease-amylas e (CREON) 3,000-9,500 - 15,000 unit capsule 04-16 00:00: 00 Yes [id number] 3000U Take 1 capsule by mouth in the morning and 1 capsule at noon and 1 capsule in the evening. Take with meals. [facility] hyoscyamine sulfate (LEVSIN/SL) 0.125 mg sublingual tablet 04-16 00:00: [id number] 2 tablets under the tongue every 6 (six) hours as needed (Abdominal pain or cramping). [facility] bisacodyL 5 mg EC tablet 04-16 00:00: 00 Yes [id number] 5mg Take 1 tablet by mouth once daily as needed for Constipati on. [facility] lipase-prot ease-amylas e (CREON) 3,000-9,500 - 15,000 unit capsule 04-16 00:00: 00 Yes [id number] 3000U Take 1 capsule by mouth in the morning and 1 capsule at noon and 1 capsule in the evening. Take with meals. [facility] hyoscyamine sulfate (LEVSIN/SL) 0.125 mg sublingual tablet 04-16 00:00: [id number] 2 tablets under the tongue every 6 (six) hours as needed (Abdominal pain or cramping). [facility] bisacodyL 5 mg EC tablet 04-16 00:00: 00 Yes [id number] 5mg Take 1 tablet by mouth once daily as needed for Constipati on. [facility] lipase-prot ease-amylas e (CREON) 3,000-9,500 - 15,000 unit capsule 04-16 00:00: 00 Yes [id number] 3000U Take 1 capsule by mouth in the morning and 1 capsule at noon and 1 capsule in the evening. Take with meals. [facility] hyoscyamine sulfate (LEVSIN/SL) 0.125 mg sublingual tablet 04-16 00:00: [id number] 2 tablets under the tongue every 6 (six) hours as needed (Abdominal pain or cramping). [facility] bisacodyL 5 mg EC tablet 04-16 00:00: 00 Yes [id number] 5mg Take 1 tablet by mouth once daily as needed for Constipati on. [facility] lipase-prot ease-amylas e (CREON) 3,000-9,500 - 15,000 unit capsule 2022-04-16 00:00: 00 Yes [id number] 3000U Take 1 capsule by mouth in the morning and 1 capsule at noon and 1 capsule in the evening. Take with meals. [facility] hyoscyamine sulfate (LEVSIN/SL) 0.125 mg sublingual tablet 04-16 00:00: [id number] 2 tablets under the tongue every 6 (six) hours as needed (Abdominal pain or cramping). [facility] bisacodyL 5 mg EC tablet 04-16 00:00: 00 Yes [id number] 5mg Take 1 tablet by mouth once daily as needed for Constipati on. [facility] lipase-prot ease-amylas e (CREON) 3,000-9,500 - 15,000 unit capsule 2022-04-16 00:00: 00 Yes [id number] 3000U Take 1 capsule by mouth in the morning and 1 capsule at noon and 1 capsule in the evening. Take with meals. [facility] hyoscyamine sulfate (LEVSIN/SL) 0.125 mg sublingual tablet 04-16 00:00: [id number] 2 tablets under the tongue every 6 (six) hours as needed (Abdominal pain or cramping). [facility] bisacodyL 5 mg EC tablet 04-16 00:00: 00 Yes [id number] 5mg Take 1 tablet by mouth once daily as needed for Constipati on. [facility] lipase-prot ease-amylas e (CREON) 3,000-9,500 - 15,000 unit capsule 2022-04-16 00:00: 00 Yes [id number] 3000U Take 1 capsule by mouth in the morning and 1 capsule at noon and 1 capsule in the evening. Take with meals. [facility] hyoscyamine sulfate (LEVSIN/SL) 0.125 mg sublingual tablet 04-16 00:00: [id number] 2 tablets under the tongue every 6 (six) hours as needed (Abdominal pain or cramping). [facility] bisacodyL 5 mg EC tablet 04-16 00:00: 00 Yes [id number] 5mg Take 1 tablet by mouth once daily as needed for Constipati on. [facility] lipase-prot ease-amylas e (CREON) 3,000-9,500 - 15,000 unit capsule 2022-04-16 00:00: 00 Yes [id number] 3000U Take 1 capsule by mouth in the morning and 1 capsule at noon and 1 capsule in the evening. Take with meals. [facility] hyoscyamine sulfate (LEVSIN/SL) 0.125 mg sublingual tablet 04-16 00:00: [id number] 2 tablets under the tongue every 6 (six) hours as needed (Abdominal pain or cramping). [facility] bisacodyL 5 mg EC tablet 04-16 00:00: 00 Yes [id number] 5mg Take 1 tablet by mouth once daily as needed for Constipati on. [facility] lipase-prot ease-amylas e (CREON) 3,000-9,500 - 15,000 unit capsule 04-16 00:00: 00 Yes [id number] 3000U Take 1 capsule by mouth in the morning and 1 capsule at noon and 1 capsule in the evening. Take with meals. [facility] hyoscyamine sulfate (LEVSIN/SL) 0.125 mg sublingual tablet 04-16 00:00: [id number] 2 tablets under the tongue every 6 (six) hours as needed (Abdominal pain or cramping). [facility] bisacodyL 5 mg EC tablet 0 04-16 00:00: 00 Yes [id number] 5mg Take 1 tablet by mouth once daily as needed for Constipati on. [facility] lipase-prot ease-amylas e (CREON) 3,000-9,500 - 15,000 unit capsule 04-16 00:00: 00 Yes [id number] 3000U Take 1 capsule by mouth in the morning and 1 capsule at noon and 1 capsule in the evening. Take with meals. [facility] hyoscyamine sulfate (LEVSIN/SL) 0.125 mg sublingual tablet 04-16 00:00: [id number] 2 tablets under the tongue every 6 (six) hours as needed (Abdominal pain or cramping). [facility] bisacodyL 5 mg EC tablet 04-16 00:00: 00 Yes [id number] 5mg Take 1 tablet by mouth once daily as needed for Constipati on. [facility] lipase-prot ease-amylas e (CREON) 3,000-9,500 - 15,000 unit capsule 04-16 00:00: 00 Yes [id number] 3000U Take 1 capsule by mouth in the morning and 1 capsule at noon and 1 capsule in the evening. Take with meals. [facility] hyoscyamine sulfate (LEVSIN/SL) 0.125 mg sublingual tablet 04-16 00:00: [id number] 2 tablets under the tongue every 6 (six) hours as needed (Abdominal pain or cramping). [facility] bisacodyL 5 mg EC tablet 04-16 00:00: 00 Yes [id number] 5mg Take 1 tablet by mouth once daily as needed for Constipati on. [facility] Famotidine (PEPCID) 20 MG oral tablet 04-16 00:00: 00 Yes 20mg Take 1 tablet (20 mg total) by mouth 2 times daily. [facility] lipase-prot ease-amylas e (CREON) 3,000-9,500 - 15,000 unit capsule 04-16 00:00: 00 Yes [id number] 3000U Take 1 capsule by mouth in the morning and 1 capsule at noon and 1 capsule in the evening. Take with meals. [facility] hyoscyamine sulfate (LEVSIN/SL) 0.125 mg sublingual tablet 04-16 00:00: [id number] 2 tablets under the tongue every 6 (six) hours as needed (Abdominal pain or cramping). [facility] famotidine (PEPCID) 20 mg tablet 04-16 00:00: 00 Yes [id number] 20mg Take 1 tablet by mouth in the morning and 1 tablet in the evening. [facility] bisacodyL 5 mg EC tablet 04-16 00:00: 00 Yes [id number] 5mg Take 1 tablet by mouth once daily as needed for Constipati on. [facility] lipase-prot ease-amylas e (CREON) 3,000-9,500 - 15,000 unit capsule 04-16 00:00: 00 Yes [id number] 3000U Take 1 capsule by mouth in the morning and 1 capsule at noon and 1 capsule in the evening. Take with meals. [facility] hyoscyamine sulfate (LEVSIN/SL) 0.125 mg sublingual tablet 04-16 00:00: [id number] 2 tablets under the tongue every 6 (six) hours as needed (Abdominal pain or cramping). [facility] famotidine (PEPCID) 20 mg tablet 04-16 00:00: 00 Yes [id number] 20mg Take 1 tablet by mouth in the morning and 1 tablet in the evening. [facility] bisacodyL 5 mg EC tablet 04-16 00:00: 00 Yes [id number] 5mg Take 1 tablet by mouth once daily as needed for Constipati on. [facility] lipase-prot ease-amylas e (CREON) 3,000-9,500 - 15,000 unit capsule 04-16 00:00: 00 Yes [id number] 3000U Take 1 capsule by mouth in the morning and 1 capsule at noon and 1 capsule in the evening. Take with meals. [facility] hyoscyamine sulfate (LEVSIN/SL) 0.125 mg sublingual tablet 04-16 00:00: [id number] 2 tablets under the tongue every 6 (six) hours as needed (Abdominal pain or cramping). [facility] famotidine (PEPCID) 20 mg tablet 04-16 00:00: 00 Yes [id number] 20mg Take 1 tablet by mouth in the morning and 1 tablet in the evening. [facility] bisacodyL 5 mg EC tablet 04-16 00:00: 00 Yes [id number] 5mg Take 1 tablet by mouth once daily as needed for Constipati on. [facility] Bisacodyl (DULCOLAX) 5 MG oral Tablet Delayed Response 04-16 00:00: 00 Yes 5mg QD Take 1 tablet (5 mg total) by mouth daily as needed. [facility] famotidine (PEPCID) 20 mg tablet 04-16 00:00: 00 07-03 00:00 :00 No [id number] 20mg Take 1 tablet by mouth in the morning and 1 tablet in the evening. [facility] Lorazepam 1 MG oral Tablet 04-05 00:00: 00 Yes 1mg Q.[id number] 3D Take 1 tablet (1 mg total) by mouth every 8 hours as needed. [facility] Lorazepam 1 MG oral Tablet 04-05 00:00: 00 Yes 1mg Q.[id number] 3D Take 1 tablet (1 mg total) by mouth every 8 hours as needed. [facility] iopamidol (ISOVUE 370-500 mL) injection 100 mL 04-01 07:45: 00 04-01 06:58 :00 No [id number] 100mL 100 mL, Intravenou s, ONCE, 1 dose, On Thu04/01/23 at 0245, Routine [facility] famotidine (PEPCID (PF)) injection 20 mg 04-01 05:45: 00 04-01 06:09 :00 No 20mg 20 mg, Slow IV Push, ONCE, 1 dose, On Thu04/01/23 at 0045, [facility] FENTanyl PF (SUBLIMAZE (PF)) injection 50 mcg 04-01 05:38: 00 04-01 06:10 :00 No 50ug 50 mcg, Slow IV Push, ONCE, 1 dose, On Thu04/01/23 at 0045, [facility] NaCl 0.9% (NS) IV infusion 1,000 mL 04-01 05:05: 00 04-01 06:30 :00 No 1000mL at 999 mL/hr, Intravenou s, ONCE, 1 dose, On Thu04/01/23 at 0015, [facility] ondansetron (ZOFRAN (PF)) injection 4 mg 04-01 05:05: 00 04-01 05:08 :00 No 4mg 4 mg, Slow IV Push, ONCE, 1 dose, On Thu04/01/23 at 0015, [facility] sodium chloride (NS) injection 5 mL 04-01 05:04: 36 Yes 5mL 5 mL, Intravenou s, PRN, Starting on Thu04/01/23 at 0004, Until Discontinu ed, Routine, IV line flushing [facility] ondansetron 4 mg disintegrat ing tablet 04-01 00:00: 00 Yes [id number] 4mg Take 1 tablet by mouth every 8 (eight) hours as needed for Nausea and Vomiting (N/V). [facility] ondansetron 4 mg disintegrat ing tablet 04-01 00:00: 00 Yes [id number] 4mg Take 1 tablet by mouth every 8 (eight) hours as needed for Nausea and Vomiting (N/V). [facility] ondansetron 4 mg disintegrat ing tablet 04-01 00:00: 00 Yes [id number] 4mg Take 1 tablet by mouth every 8 (eight) hours as needed for Nausea and Vomiting (N/V). [facility] ondansetron 4 mg disintegrat ing tablet 04-01 00:00: 00 Yes [id number] 4mg Take 1 tablet by mouth every 8 (eight) hours as needed for Nausea and Vomiting (N/V). [facility] ondansetron 4 mg disintegrat ing tablet 04-01 00:00: 00 Yes [id number] 4mg Take 1 tablet by mouth every 8 (eight) hours as needed for Nausea and Vomiting (N/V). [facility] ondansetron 4 mg disintegrat ing tablet 04-01 00:00: 00 Yes [id number] 4mg Take 1 tablet by mouth every 8 (eight) hours as needed for Nausea and Vomiting (N/V). [facility] ondansetron 4 mg disintegrat ing tablet 04-01 00:00: 00 Yes [id number] 4mg Take 1 tablet by mouth every 8 (eight) hours as needed for Nausea and Vomiting (N/V). [facility] ondansetron 4 mg disintegrat ing tablet 04-01 00:00: 00 Yes [id number] 4mg Take 1 tablet by mouth every 8 (eight) hours as needed for Nausea and Vomiting (N/V). [facility] ondansetron 4 mg disintegrat ing tablet 04-01 00:00: 00 Yes [id number] 4mg Take 1 tablet by mouth every 8 (eight) hours as needed for Nausea and Vomiting (N/V). [facility] ondansetron 4 mg disintegrat ing tablet 04-01 00:00: 00 Yes [id number] 4mg Take 1 tablet by mouth every 8 (eight) hours as needed for Nausea and Vomiting (N/V). [facility] ondansetron 4 mg disintegrat ing tablet 04-01 00:00: 00 Yes [id number] 4mg Take 1 tablet by mouth every 8 (eight) hours as needed for Nausea and Vomiting (N/V). [facility] ondansetron 4 mg disintegrat ing tablet 04-01 00:00: 00 Yes [id number] 4mg Take 1 tablet by mouth every 8 (eight) hours as needed for Nausea and Vomiting (N/V). [facility] ondansetron 4 mg disintegrat ing tablet 04-01 00:00: 00 Yes [id number] 4mg Take 1 tablet by mouth every 8 (eight) hours as needed for Nausea and Vomiting (N/V). [facility] ondansetron 4 mg disintegrat ing tablet 04-01 00:00: 00 Yes [id number] 4mg Take 1 tablet by mouth every 8 (eight) hours as needed for Nausea and Vomiting (N/V). [facility] ondansetron 4 mg disintegrat ing tablet 04-01 00:00: 00 Yes [id number] 4mg Take 1 tablet by mouth every 8 (eight) hours as needed for Nausea and Vomiting (N/V). [facility] ondansetron 4 mg disintegrat ing tablet 04-01 00:00: 00 Yes [id number] 4mg Take 1 tablet by mouth every 8 (eight) hours as needed for Nausea and Vomiting (N/V). [facility] ondansetron 4 mg disintegrat ing tablet 04-01 00:00: 00 Yes [id number] 4mg Take 1 tablet by mouth every 8 (eight) hours as needed for Nausea and Vomiting (N/V). [facility] ondansetron 4 mg disintegrat ing tablet 04-01 00:00: 00 Yes [id number] 4mg Take 1 tablet by mouth every 8 (eight) hours as needed for Nausea and Vomiting (N/V). [facility] ondansetron 4 mg disintegrat ing tablet 04-01 00:00: 00 Yes [id number] 4mg Take 1 tablet by mouth every 8 (eight) hours as needed for Nausea and Vomiting (N/V). [facility] traMADoL 50 mg tablet 04-01 00:00: 00 04-09 04:59 :00 No [id number] 50mg Take 1 tablet by mouth every 8 (eight) hours as needed for Pain (scale 4-6) for up to 7 days. Indication s: acute pain [facility] predniSONE (DELTASONE) tablet 40 mg 12-09 07:15: 00 12-09 06:33 :00 No 40mg 40 mg, Oral, ONCE, 1 dose, On Thu12/09/22 at 0215, [facility] traMADoL (ULTRAM) tablet 50 mg 12-09 07:15: 12-09 06:33 :00 No 50mg 50 mg, Oral, ONCE, 1 dose, On Thu12/09/22 at 0215, [facility] iopamidol (ISOVUE 370-500 mL) injection 100 mL 12-09 06:15: 12-09 06:15 :00 No [id number] 100mL 100 mL, Intravenou s, ONCE, 1 dose, On Thu12/09/22 at 0115, Routine [facility] ketorolac (TORADOL) injection 30 mg 12-09 06:15: 12-09 05:30 :00 No 30mg 30 mg, Slow IV Push, ONCE, 1 dose, On Thu12/09/22 at 0115, [facility] morpHINE (4 mg/mL) injection 4 mg 12-09 06:15: 12-09 05:30 :00 No 4mg 4 mg, Slow IV Push, ONCE, 1 dose, On Thu12/09/22 at 0115, [facility] NaCl 0.9% (NS) bolus infusion 1,000 mL 12-09 06:15: 12-09 06:33 :00 No 1000mL at 999 mL/hr, 1,000 mL, IV Infusion, ONCE, 1 dose, On Thu12/09/22 at 0115, [facility] ondansetron (ZOFRAN (PF)) injection 8 mg 12-09 05:30: 00 12-09 05:30 :00 No 8mg 8 mg, Slow IV Push, ONCE, 1 dose, On Thu12/09/22 at 0030, [facility] traMADoL 50 mg tablet 2022-0 12-09 00:00: 00 Yes [id number] 50mg Take 1 tablet by mouth every 6 (six) hours as needed (pain). Indication s: acute pain [facility] ondansetron 4 mg tablet 0 12-09 00:00: 00 Yes [id number] 1-2 tablets every 8 hours as needed for nausea [facility] traMADoL 50 mg tablet 2022-0 12-09 00:00: 00 Yes [id number] 50mg Take 1 tablet by mouth every 6 (six) hours as needed (pain). Indication s: acute pain [facility] ondansetron 4 mg tablet 0 12-09 00:00: 00 Yes [id number] 1-2 tablets every 8 hours as needed for nausea [facility] traMADoL 50 mg tablet 2022-0 12-09 00:00: 00 Yes [id number] 50mg Take 1 tablet by mouth every 6 (six) hours as needed (pain). Indication s: acute pain [facility] ondansetron 4 mg tablet 2022-0 12-09 00:00: 00 Yes [id number] 1-2 tablets every 8 hours as needed for nausea [facility] traMADoL 50 mg tablet 2022-0 12-09 00:00: 00 Yes [id number] 50mg Take 1 tablet by mouth every 6 (six) hours as needed (pain). Indication s: acute pain [facility] ondansetron 4 mg tablet 0 12-09 00:00: 00 Yes [id number] 1-2 tablets every 8 hours as needed for nausea [facility] traMADoL 50 mg tablet 3-0 12-09 00:00: 00 Yes [id number] 50mg Take 1 tablet by mouth every 6 (six) hours as needed (pain). Indication s: acute pain [facility] ondansetron 4 mg tablet 2022-0 12-09 00:00: 00 Yes [id number] 1-2 tablets every 8 hours as needed for nausea [facility] traMADoL 50 mg tablet 3-0 12-09 00:00: 00 Yes [id number] 50mg Take 1 tablet by mouth every 6 (six) hours as needed (pain). Indication s: acute pain [facility] ondansetron 4 mg tablet 2022-0 12-09 00:00: 00 Yes [id number] 1-2 tablets every 8 hours as needed for nausea [facility] traMADoL 50 mg tablet 2022-0 12-09 00:00: 00 Yes [id number] 50mg Take 1 tablet by mouth every 6 (six) hours as needed (pain). Indication s: acute pain [facility] ondansetron 4 mg tablet 2022-0 12-09 00:00: 00 Yes [id number] 1-2 tablets every 8 hours as needed for nausea [facility] traMADoL 50 mg tablet 2022-0 12-09 00:00: 00 Yes [id number] 50mg Take 1 tablet by mouth every 6 (six) hours as needed (pain). Indication s: acute pain [facility] ondansetron 4 mg tablet 2022-0 12-09 00:00: 00 Yes [id number] 1-2 tablets every 8 hours as needed for nausea [facility] traMADoL 50 mg tablet 2022-0 12-09 00:00: 00 Yes [id number] 50mg Take 1 tablet by mouth every 6 (six) hours as needed (pain). Indication s: acute pain [facility] ondansetron 4 mg tablet 2022-0 12-09 00:00: 00 Yes [id number] 1-2 tablets every 8 hours as needed for nausea [facility] traMADoL 50 mg tablet 2022-0 12-09 00:00: 00 Yes [id number] 50mg Take 1 tablet by mouth every 6 (six) hours as needed (pain). Indication s: acute pain [facility] ondansetron 4 mg tablet 2022-0 12-09 00:00: 00 Yes [id number] 1-2 tablets every 8 hours as needed for nausea [facility] traMADoL 50 mg tablet 3-0 28 00:00: 00 Yes [id number] 50mg Take 1 tablet by mouth every 6 (six) hours as needed (pain). Indication s: acute pain [facility] ondansetron 4 mg tablet 2022-0 12-09 00:00: 00 Yes [id number] 1-2 tablets every 8 hours as needed for nausea [facility] traMADoL 50 mg tablet 2022-0 12-09 00:00: 00 Yes [id number] 50mg Take 1 tablet by mouth every 6 (six) hours as needed (pain). Indication s: acute pain [facility] ondansetron 4 mg tablet 2022-0 12-09 00:00: 00 Yes [id number] 1-2 tablets every 8 hours as needed for nausea [facility] traMADoL 50 mg tablet 2022-0 12-09 00:00: 00 Yes [id number] 50mg Take 1 tablet by mouth every 6 (six) hours as needed (pain). Indication s: acute pain [facility] ondansetron 4 mg tablet 2022-0 12-09 00:00: 00 Yes [id number] 1-2 tablets every 8 hours as needed for nausea [facility] traMADoL 50 mg tablet 2022-0 12-09 00:00: 00 Yes [id number] 50mg Take 1 tablet by mouth every 6 (six) hours as needed (pain). Indication s: acute pain [facility] ondansetron 4 mg tablet 2022-0 12-09 00:00: 00 Yes [id number] 1-2 tablets every 8 hours as needed for nausea [facility] traMADoL 50 mg tablet 2022-0 12-09 00:00: 00 Yes [id number] 50mg Take 1 tablet by mouth every 6 (six) hours as needed (pain). Indication s: acute pain [facility] ondansetron 4 mg tablet 2022-0 12-09 00:00: 00 Yes [id number] 1-2 tablets every 8 hours as needed for nausea [facility] traMADoL 50 mg tablet 3-0 28 00:00: 00 Yes [id number] 50mg Take 1 tablet by mouth every 6 (six) hours as needed (pain). Indication s: acute pain [facility] ondansetron 4 mg tablet 3-0 28 00:00: 00 Yes [id number] 1-2 tablets every 8 hours as needed for nausea [facility] traMADoL 50 mg tablet 2022-0 12-09 00:00: 00 Yes [id number] 50mg Take 1 tablet by mouth every 6 (six) hours as needed (pain). Indication s: acute pain [facility] ondansetron 4 mg tablet 0 12-09 00:00: 00 Yes [id number] 1-2 tablets every 8 hours as needed for nausea [facility] traMADoL 50 mg tablet 2022-0 12-09 00:00: 00 Yes [id number] 50mg Take 1 tablet by mouth every 6 (six) hours as needed (pain). Indication s: acute pain [facility] ondansetron 4 mg tablet 2022-0 12-09 00:00: 00 Yes [id number] 1-2 tablets every 8 hours as needed for nausea [facility] traMADoL 50 mg tablet 2022-0 12-09 00:00: 00 Yes [id number] 50mg Take 1 tablet by mouth every 6 (six) hours as needed (pain). Indication s: acute pain [facility] ondansetron 4 mg tablet 0 12-09 00:00: 00 Yes [id number] 1-2 tablets every 8 hours as needed for nausea [facility] traMADoL 50 mg tablet 2022-0 12-09 00:00: 00 Yes [id number] 50mg Take 1 tablet by mouth every 6 (six) hours as needed (pain). Indication s: acute pain [facility] ondansetron 4 mg tablet 2022-0 12-09 00:00: 00 Yes [id number] 1-2 tablets every 8 hours as needed for nausea [facility] traMADoL 50 mg tablet 2022-0 12-09 00:00: 00 Yes [id number] 50mg Take 1 tablet by mouth every 6 (six) hours as needed (pain). Indication s: acute pain [facility] ondansetron 4 mg tablet 2022-0 12-09 00:00: 00 Yes [id number] 1-2 tablets every 8 hours as needed for nausea [facility] traMADoL 50 mg tablet 3-0 28 00:00: 00 Yes [id number] 50mg Take 1 tablet by mouth every 6 (six) hours as needed (pain). Indication s: acute pain [facility] ondansetron 4 mg tablet 12-09 00:00: 00 Yes [id number] 1-2 tablets every 8 hours as needed for nausea [facility] predniSONE 20 mg tablet 12-09 00:00: 00 12-17 04:59 :00 No [id number] 40mg Take 2 tablets by mouth in the morning for 7 days. [facility] iopamidol (ISOVUE 370-500 mL) injection 100 mL 11-25 06:15: 00 11-25 06:15 :00 No [id number] 100mL 100 mL, Intravenou s, ONCE, 1 dose, On Thu11/25/22 at 0115, Routine [facility] NaCl 0.9% (NS) bolus infusion 1,000 mL 11-25 06:00: 00 11-25 07:00 :00 No 1000mL at 999 mL/hr, 1,000 mL, IV Infusion, ONCE, 1 dose, On Thu11/25/22 at 0100, STAT [facility] FENTanyl PF (SUBLIMAZE (PF)) injection 50 mcg 11-25 05:45: 00 11-25 05:03 :00 No 50ug 50 mcg, Slow IV Push, ONCE, 1 dose, On Thu11/25/22 at 0045, Routine [facility] ondansetron (ZOFRAN (PF)) injection 4 mg 11-25 05:00: 00 11-25 05:04 :00 No 4mg 4 mg, Slow IV Push, ONCE, 1 dose, On Thu11/25/22 at 0000, VASILIY [facility] Pancrelipas e, Lip-Prot-Am yl, (Creon) [address] units [address] Particles 10-13 00:00: 00 Yes [facility] Pancrelipas e, Lip-Prot-Am yl, (Creon) [address]30[address]-[address] Particles 10-13 00:00: 00 Yes [facility] Seybold - Externa l lipase-prot ease-amylas e (CREON) 12,000-38,0 00 -60,000 unit capsule 2022-30 00:00: 00 01-12 04:59 :00 No [id number] 1{capsu le} Take 1 capsule by mouth in the morning and 1 capsule at noon and 1 capsule in the evening. Take with meals. Do all this for 90 days. [facility] lipase-prot ease-amylas e (CREON) 12,000-38,0 00 -60,000 unit capsule 2022-0 30 00:00: 00 01-12 04:59 :00 No [id number] 1{capsu le} Take 1 capsule by mouth in the morning and 1 capsule at noon and 1 capsule in the evening. Take with meals. Do all this for 90 days. [facility] lipase-prot ease-amylas e (CREON) 12,000-38,0 00 -60,000 unit capsule 2022-10-13 00:00: 00 01-12 04:59 :00 No [id number] 1{capsu le} Take 1 capsule by mouth in the morning and 1 capsule at noon and 1 capsule in the evening. Take with meals. Do all this for 90 days. [facility] lipase-prot ease-amylas e (CREON) 12,000-38,0 00 -60,000 unit capsule 2022-10-13 00:00: 00 01-12 04:59 :00 No [id number] 1{capsu le} Take 1 capsule by mouth in the morning and 1 capsule at noon and 1 capsule in the evening. Take with meals. Do all this for 90 days. [facility] lipase-prot ease-amylas e (CREON) 12,000-38,0 00 -60,000 unit capsule 2 capsule 10-12 23:00: 00 Yes 2{capsu le} 2 capsule, Oral, TID MEALS, First dose on 10/12/22 at 1700, Until Discontinu ed, Routine [facility] lisinopriL 10 mg tablet 10-12 17:56: 15 Yes 10mg Take 10 mg by mouth in the morning. [facility] lisinopriL 10 mg tablet 0 10-12 17:56: 15 Yes 10mg Take 10 mg by mouth in the morning. [facility] lisinopriL 10 mg tablet 10-12 17:56: 15 Yes 10mg Take 10 mg by mouth in the morning. [facility] lisinopriL 10 mg tablet 10-12 17:56: 15 Yes 10mg Take 10 mg by mouth in the morning. [facility] lisinopriL 10 mg tablet 10-12 17:56: 15 Yes 10mg Take 10 mg by mouth in the morning. [facility] lisinopriL 10 mg tablet 10-12 17:56: 15 Yes 10mg Take 10 mg by mouth in the morning. [facility] lisinopriL 10 mg tablet 10-12 17:56: 15 Yes 10mg Take 10 mg by mouth in the morning. [facility] lisinopriL 10 mg tablet 10-12 17:56: 15 Yes 10mg Take 10 mg by mouth in the morning. [facility] lisinopriL 10 mg tablet 10-12 17:56: 15 Yes 10mg Take 10 mg by mouth in the morning. [facility] lisinopriL 10 mg tablet 10-12 17:56: 15 Yes 10mg Take 10 mg by mouth in the morning. [facility] lisinopriL 10 mg tablet 0 10-12 17:56: 15 Yes 10mg Take 10 mg by mouth in the morning. [facility] lisinopriL 10 mg tablet 0 10-12 17:56: 15 Yes 10mg Take 10 mg by mouth in the morning. [facility] lisinopriL 10 mg tablet 0 10-12 17:56: 15 Yes 10mg Take 10 mg by mouth in the morning. [facility] lisinopriL 10 mg tablet 0 10-12 17:56: 15 Yes 10mg Take 10 mg by mouth in the morning. [facility] lisinopriL 10 mg tablet 10-12 17:56: 15 Yes 10mg Take 10 mg by mouth in the morning. [facility] lisinopriL 10 mg tablet 10-12 17:56: 15 Yes 10mg Take 10 mg by mouth in the morning. [facility] lisinopriL 10 mg tablet 10-12 17:56: 15 Yes 10mg Take 10 mg by mouth in the morning. [facility] lisinopriL 10 mg tablet 10-12 17:56: 15 Yes 10mg Take 10 mg by mouth in the morning. [facility] lisinopriL 10 mg tablet 10-12 17:56: 15 Yes 10mg Take 10 mg by mouth in the morning. [facility] lisinopriL 10 mg tablet 10-12 17:56: 15 Yes 10mg Take 10 mg by mouth in the morning. [facility] lisinopriL 10 mg tablet 10-12 17:56: 15 Yes 10mg Take 10 mg by mouth in the morning. [facility] lisinopriL 10 mg tablet 10-12 17:56: 15 Yes 10mg Take 10 mg by mouth in the morning. [facility] lisinopriL 10 mg tablet 10-12 17:56: 15 Yes 10mg Take 10 mg by mouth in the morning. [facility] lisinopriL 10 mg tablet 10-12 17:56: 15 Yes 10mg Take 10 mg by mouth in the morning. [facility] lisinopriL 10 mg tablet 10-12 17:56: 15 Yes 10mg Take 10 mg by mouth in the morning. [facility] lisinopriL 10 mg tablet 10-12 17:56: 15 Yes 10mg Take 10 mg by mouth in the morning. [facility] meloxicam (MOBIC) tablet 7.5 mg 10-12 17:15: 00 Yes 7.5mg 7.5 mg, Oral, DAILY, First dose on 10/12/22 at 1115, Until Discontinu ed, Routine [facility] omeprazole (PRILOSEC) capsule 20 mg 10-12 15:00: 00 Yes 20mg 20 mg, Oral, DAILY, First dose on 10/12/22 at 0900, Until Discontinu ed, Routine [facility] Pantoprazol e Sodium 40 MG oral Tablet Delayed Response 10-12 00:00: 00 Yes Luz Maria rea Pantoprazol e Sodium 40 MG oral Tablet Delayed Response 10-12 00:00: 00 Yes Luz Maria rea pantoprazol e 40 mg EC tablet 10-12 00:00: 00 01-11 04:59 :00 No [id number] 40mg Take 1 tablet by mouth in the morning for 90 days. [facility] lipase-prot ease-amylas e 12,000-38,0 00 -60,000 unit capsule 10-12 00:00: 00 01-11 04:59 :00 No [id number] 2{capsu le} Take 2 capsules by mouth in the morning and 2 capsules at noon and 2 capsules in the evening. Take with meals. Do all this for 90 days. Do not crush or chew. [facility] pantoprazol e 40 mg EC tablet 10-12 00:00: 00 01-11 04:59 :00 No [id number] 40mg Take 1 tablet by mouth in the morning for 90 days. [facility] pantoprazol e 40 mg EC tablet 10-12 00:00: 00 01-11 04:59 :00 No [id number] 40mg Take 1 tablet by mouth in the morning for 90 days. [facility] pantoprazol e 40 mg EC tablet 10-12 00:00: 00 01-11 04:59 :00 No [id number] 40mg Take 1 tablet by mouth in the morning for 90 days. [facility] pantoprazol e 40 mg EC tablet 10-12 00:00: 00 01-11 04:59 :00 No [id number] 40mg Take 1 tablet by mouth in the morning for 90 days. [facility] meloxicam 7.5 mg tablet 10-12 00:00: 00 10-27 05:59 :00 No [id number] 7.5mg Take 1 tablet by mouth once daily as needed for Pain (scale 7-10) for up to 14 days. [facility] meloxicam 7.5 mg tablet 10-12 00:00: 00 10-27 05:59 :00 No [id number] 7.5mg Take 1 tablet by mouth once daily as needed for Pain (scale 7-10) for up to 14 days. [facility] HYDROcodone -acetaminop hen 5-325 mg tablet 10-12 00:00: 00 10-20 05:59 :00 No [id number] 1{tbl} Take 1 tablet by mouth every 6 (six) hours as needed for Pain (scale 4-6) for up to 7 days. Indication s: acute pain [facility] amLODIPine (NORVASC) tablet 10 mg 10-11 20:00: 00 Yes 10mg 10 mg, Oral, DAILY, First dose on 10/11/22 at 1400, Until Discontinu ed, Routine [facility] lactated ringers IV infusion 1,000 mL 10-11 20:00: 00 10-12 14:03 :28 No 1000mL at 125 mL/hr, 1,000 mL, IV Infusion, CONTINUOUS , Starting on 10/11/22 at 1400, Until 10/12/22 at 0803, Routine [facility] HYDROcodone -acetaminop hen (NORCO 5) 5-325 mg tablet 1 tablet 10-11 19:35: 19 10-13 19:34 :19 No 1{tbl} 1 tablet, Oral, Q6HPRN, Starting on 10/11/22 at 1335, Until 10/13/22 at 1334, Routine, Pain (scale 4-6) [facility] acetaminoph en (TYLENOL) tablet 650 mg 10-11 19:35: 16 Yes 650mg 650 mg, Oral, Q6HPRN, Starting on 10/11/22 at 1335, Until Discontinu ed, Routine, Pain (scale 1-3) [facility] NaCl 0.9% (NS) bolus infusion 1,000 mL 10-11 16:45: 00 10-11 16:02 :00 No 1000mL at 999 mL/hr, 1,000 mL, Intravenou s, ONCE, 1 dose, On 10/11/22 at 1045, STAT [facility] ondansetron (ZOFRAN (PF)) injection 4 mg 10-11 16:15: 00 10-11 16:15 :00 No 4mg 4 mg, Slow IV Push, ONCE, 1 dose, On 10/11/22 at 1015, VASILIY [facility] morpHINE (4 mg/mL) injection 4 mg 10-11 16:15: 00 10-11 16:14 :00 No 4mg 4 mg, Slow IV Push, ONCE, 1 dose, On 10/11/22 at 1015, STAT [facility] iopamidol (ISOVUE 370-500 mL) injection 120 mL 10-11 15:45: 00 10-11 14:43 :00 No [id number] 120mL 120 mL, Intravenou s, ONCE, 1 dose, On 10/11/22 at 0945, Routine [facility] FENTanyl PF (SUBLIMAZE (PF)) injection 50 mcg 10-09 08:30: 00 10-09 07:23 :00 No 50ug 50 mcg, Slow IV Push, ONCE, 1 dose, On Carrie 10/09/22 at 0230, Routine [facility] iopamidol (ISOVUE 370-500 mL) injection 100 mL 10-09 07:15: 00 10-09 07:15 :00 No [id number] 100mL 100 mL, Intravenou s, ONCE, 1 dose, On [place] 10/09/22 at 0115, Routine [facility] ketorolac (TORADOL) injection 30 mg 10-09 06:15: 00 10-09 05:25 :00 No 30mg 30 mg, Slow IV Push, ONCE, 1 dose, On Carrie 10/09/22 at 0015, Routine [facility] ondansetron (ZOFRAN) 4 mg tablet 10-09 00:00: 00 Yes [id number] 4mg Take 1 tablet by mouth every 8 (eight) hours as needed for Nausea and Vomiting (N/V). [facility] traMADoL (ULTRAM) 50 mg tablet 10-09 00:00: 00 Yes [id number] 50mg Take 1 tablet by mouth every 6 (six) hours as needed for Pain (scale 7-10). Indication s: acute pain [facility] ondansetron (ZOFRAN) 4 mg tablet 10-09 00:00: 00 10-11 00:00 :00 No [id number] 4mg Take 1 tablet by mouth every 8 (eight) hours as needed for Nausea and Vomiting (N/V). [facility] traMADoL (ULTRAM) 50 mg tablet 10-09 00:00: 00 10-11 00:00 :00 No [id number] 50mg Take 1 tablet by mouth every 6 (six) hours as needed for Pain (scale 7-10). Indication s: acute pain [facility] ketorolac (TORADOL) injection 30 mg 2021-09 17:15: 00 08-20 16:35 :00 No 30mg 30 mg, Intramuscu lar, ONCE, 1 dose, On Thu08/20/22 at 1115, VASILIY [facility] TAKE 1 TABLET DAILY. 2021-09 00:00: 00 No Amlodipine Besylate 10 MG oral Tablet 2021-09 00:00: 00 Yes Luz Maria rea Amlodipine Besylate 10 MG oral Tablet 2021-09 00:00: 00 Yes Luz Maria rea morpHINE (4 mg/mL) injection 4 mg 06-09 13:15: 00 06-09 12:54 :00 No 4mg 4 mg, Slow IV Push, ONCE, 1 dose, On Thu06/09/22 at 0815, [facility] ketorolac (TORADOL) injection 30 mg 06-09 13:15: 00 06-09 12:55 :00 No 30mg 30 mg, Slow IV Push, ONCE, 1 dose, On Thu06/09/22 at 0815, [facility] iopamidol (ISOVUE 370-500 mL) injection 60 mL 06-09 13:07: 00 06-09 13:08 :00 No [id number] 60mL 60 mL, Intravenou s, ONCE, 1 dose, On Thu06/09/22 at 0815, Routine [facility] ondansetron (ZOFRAN (PF)) injection 4 mg 06-09 12:30: 00 06-09 12:54 :00 No 4mg 4 mg, Slow IV Push, ONCE, 1 dose, On Thu06/09/22 at 0730, [facility] dexamethaso ne sod phos PF injection 10 mg 06-09 12:30: 00 06-09 12:55 :00 No 10mg 10 mg, Slow IV Push, ONCE, 1 dose, On Thu06/09/22 at 0730, 1 mL [facility] traMADoL 50 mg tablet 06-09 00:00: 00 Yes [id number] 50mg Take 1 tablet by mouth every 6 (six) hours as needed (pain). Indication s: acute pain [facility] lidocaine 5 % (700 mg/patch) patch 06-09 00:00: 00 Yes [id number] Apply one patch to most painful area up to 12 hours a day as needed for pain. PHARMACIST : dispense one box [facility] traMADoL 50 mg tablet 06-09 00:00: 00 Yes [id number] 50mg Take 1 tablet by mouth every 6 (six) hours as needed (pain). Indication s: acute pain [facility] lidocaine 5 % (700 mg/patch) patch 06-09 00:00: 00 Yes [id number] Apply one patch to most painful area up to 12 hours a day as needed for pain. PHARMACIST : dispense one box [facility] traMADoL 50 mg tablet 06-09 00:00: 00 Yes [id number] 50mg Take 1 tablet by mouth every 6 (six) hours as needed (pain). Indication s: acute pain [facility] lidocaine 5 % (700 mg/patch) patch 06-09 00:00: 00 Yes [id number] Apply one patch to most painful area up to 12 hours a day as needed for pain. PHARMACIST : [facility] tra[facility] mg tablet 06-09 00:00: 00 Yes [id number] 50mg Take 1 tablet by mouth every 6 (six) hours as needed (pain). Indication s: acute pain [facility] lidocaine 5 % (700 mg/patch) patch 06-09 00:00: 00 Yes [id number] Apply one patch to most painful area up to 12 hours a day as needed for pain. PHARMACIST : dispense one box [facility] traMADoL 50 mg tablet 06-09 00:00: 00 10-11 00:00 :00 No [id number] 50mg Take 1 tablet by mouth every 6 (six) hours as needed (pain). Indication s: acute pain [facility] lidocaine 5 % (700 mg/patch) patch 06-09 00:00: 00 10-11 00:00 :00 No [id number] Apply one patch to most painful area up to 12 hours a day as needed for pain. PHARMACIST : dispense one box [facility] predniSONE 20 mg tablet 06-09 00:00: 00 06-17 04:59 :00 No [id number] 40mg Take 2 tablets by mouth in the morning for 7 days. [facility] Dose Unknown 02-03 00:00: 00 No Dose Unknown 02-03 00:00: 00 No lisinopriL (PRINIVIL,Z ESTRIL) tablet 20 mg 11-01 03:00: 00 Yes 20mg 20 mg, Oral, QHS, First dose (after last modificati on) on Thu10/31/21 at 2100, Until Discontinu ed, Routine [facility] lisinopriL 20 mg tablet 11-01 00:00: 00 12-02 04:59 :00 No [id number] 20mg Take 1 tablet by mouth at bedtime for 30 days. [facility] lisinopriL 20 mg tablet 11-01 00:00: 00 12-02 04:59 :00 No [id number] 20mg Take 1 tablet by mouth at bedtime for 30 days. [facility] lactated ringers IV infusion 1,000 mL 10-31 19:00: 00 Yes 1000mL at 75 mL/hr, 1,000 mL, IV Infusion, CONTINUOUS , Starting on Thu10/31/21 at 1300, Until Discontinu ed, Routine [facility] amLODIPine (NORVASC) tablet 10 mg 10-31 15:00: 00 Yes 10mg 10 mg, Oral, DAILY, First dose on Thu10/31/21 at 0900, Until Discontinu ed, Routine [facility] enoxaparin (LOVENOX) injection 40 mg 10-31 15:00: 00 Yes 40mg 40 mg, Subcutaneo us, DAILY, First dose on Thu10/31/21 at 0900, Until Discontinu ed, Routine [facility] lactated ringers IV infusion 1,000 mL 10-31 07:00: 00 10-31 18:45 :24 No 1000mL at 150 mL/hr, 1,000 mL, IV Infusion, CONTINUOUS , Starting on Thu10/31/21 at 0100, Until Thu10/31/21 at 1245, Routine [facility] lactated ringers IV infusion 1,000 mL 10-31 01:00: 00 10-31 06:52 :16 No 1000mL at 75 mL/hr, 1,000 mL, IV Infusion, CONTINUOUS , Starting on Thu10/30/21 at 1900, Until Carrie 10/31/21 at 0052, Routine [facility] morpHINE injection 4 mg 10-31 00:43: 35 11-01 00:42 :35 No 4mg 4 mg, Slow IV Push, Q4HPRN, Starting on Thu10/30/21 at 1843, Until Carrie 10/31/21 at 1842, Routine, Pain (scale 7-10) [facility] HYDROcodone -acetaminop hen (NORCO 5) 5-325 mg tablet 1 tablet 10-31 00:43: 32 11-02 00:42 :32 No 1{tbl} 1 tablet, Oral, Q6HPRN, Starting on Thu10/30/21 at 1843, Until Thu11/01/21 at 1842, Routine, Pain (scale 4-6) [facility] acetaminoph en (TYLENOL) tablet 650 mg 10-31 00:43: 22 Yes 650mg 650 mg, Oral, Q6HPRN, Starting on Thu10/30/21 at 1843, Until Discontinu ed, Routine, Pain (scale 1-3) [facility] ondansetron (ZOFRAN (PF)) injection 4 mg 10-30 21:15: 00 10-30 20:28 :00 No 4mg 4 mg, Slow IV Push, ONCE, 1 dose, On Thu10/30/21 at 1515, VASILIY [facility] morpHINE injection 4 mg 10-30 21:15: 00 10-30 20:29 :00 No 4mg 4 mg, Slow IV Push, ONCE, 1 dose, On Thu10/30/21 at 1515, STAT [facility] NaCl 0.9% (NS) bolus infusion 1,000 mL 10-30 21:15: 00 10-30 20:29 :00 No 1000mL at 999 mL/hr, 1,000 mL, IV Infusion, ONCE, 1 dose, On Thu10/30/21 at 1515, VASILIY [facility] iopamidol (ISOVUE 370-500 mL) injection 100 mL 2-16 20:37: 00 10-30 20:35 :00 No [id number] 100mL 100 mL, Intravenou s, ONCE, 1 dose, On Thu10/30/21 at 1445, Routine [facility] lisinopril 10 mg tablet 2-03 00:00: 00 No 1mg amlodipine 10 mg tablet 2-03 00:00: 00 No 1mg lisinopril 10 mg tablet 2020-09 0-13 00:00: 00 No 1mg amlodipine 10 mg tablet 2020-09 0-13 00:00: 00 No 1mg NaCl 0.9% (NS) bolus infusion 1,000 mL 05-24 03:45: 00 05-24 05:00 :00 No 1000mL at 999 mL/hr, 1,000 mL, IV Piggyback, ONCE, 1 dose, [place] 05/23/21 at 2245, STAT [facility] NaCl 0.9% (NS) bolus infusion 1,000 mL 05-24 03:45: 00 05-24 05:00 :00 No 1000mL at 999 mL/hr, 1,000 mL, IV Piggyback, ONCE, 1 dose, [place] 05/23/21 at 2245, STAT [facility] NaCl 0.9% (NS) bolus infusion 1,000 mL 05-24 03:00: 00 05-24 03:00 :00 No 1000mL at 999 mL/hr, 1,000 mL, IV Piggyback, ONCE, 1 dose, Carrie 05/23/21 at 2200, [facility] NaCl 0.9% (NS) bolus infusion 1,000 mL 05-24 03:00: 00 05-24 03:00 :00 No 1000mL at 999 mL/hr, 1,000 mL, IV Piggyback, ONCE, 1 dose, Carrie 05/23/21 at 2200, [facility] NaCl 0.9% (NS) bolus infusion 500 mL 05-23 03:15: 00 05-23 15:14 :00 No 500mL at 999 mL/hr, 500 mL, IV Piggyback, ONCE, 1 dose, Thu05/22/21 at 2215, STAT [facility] NaCl 0.9% (NS) bolus infusion 500 mL 05-23 03:15: 00 05-23 15:14 :00 No 500mL at 999 mL/hr, 500 mL, IV Piggyback, ONCE, 1 dose, Thu05/22/21 at 2215, STAT [facility] dexamethaso ne (DECADRON PHOSPHATE) injection 10 mg 04-02 03:30: 00 04-02 02:47 :00 No 10mg 10 mg, Intramuscu lar, ONCE, 1 dose, Thu04/01/21 at 2230, STAT [facility] ketorolac (TORADOL) injection 60 mg 03-18 04:00: 00 03-18 02:56 :00 No 60mg 60 mg, Intramuscu lar, ONCE, 1 dose, [place] 03/17/21 at 2300, [facility] EMERGENCY ROOM, [facility] ibuprofen 800 mg tablet 03-17 00:00: 00 Yes [id number] 800mg Take 1 tablet by mouth every 8 (eight) hours as needed for Pain (scale 4-6). [facility] ibuprofen 800 mg tablet 03-17 00:00: 00 Yes [id number] 800mg Take 1 tablet by mouth every 8 (eight) hours as needed for Pain (scale 4-6). [facility] ibuprofen 800 mg tablet 03-17 00:00: 00 Yes [id number] 800mg Take 1 tablet by mouth every 8 (eight) hours as needed for Pain (scale 4-6). [facility] ibuprofen 800 mg tablet 03-17 00:00: 00 Yes [id number] 800mg Take 1 tablet by mouth every 8 (eight) hours as needed for Pain (scale 4-6). [facility] ibuprofen 800 mg tablet 03-17 00:00: 00 Yes [id number] 800mg Take 1 tablet by mouth every 8 (eight) hours as needed for Pain (scale 4-6). [facility] ibuprofen 800 mg tablet 03-17 00:00: 00 Yes [id number] 800mg Take 1 tablet by mouth every 8 (eight) hours as needed for Pain (scale 4-6). [facility] mg tablet 03-17 00:00: 00 05-23 00:00 :00 No [id number] 800mg Take 1 tablet by mouth every 8 (eight) hours as needed for Pain (scale 4-6). [facility] ibuprofen 800 mg tablet 03-17 00:00: 00 05-23 00:00 :00 No [id number] 800mg Take 1 tablet by mouth every 8 (eight) hours as needed for Pain (scale 4-6). [facility] acetaminoph en-codeine 300-30 mg tablet 03-17 00:00: 00 03-25 04:59 :00 No [id number] 1{tbl} Take 1 tablet by mouth every 6 (six) hours as needed for Pain (scale 7-10) for up to 7 days. Indication s: acute pain [facility] benzonatate (TESSALON PERLES) capsule 200 mg 11-15 05:00: 00 11-15 04:51 :00 No 200mg 200 mg, Oral, ONCE, 1 dose, Thu11/14/20 at 2300, Routine [facility] benzonatate 100 mg capsule 11-14 00:00: 00 Yes [id number] 100mg Take 1 capsule by mouth 3 (three) times daily as needed for Cough. [facility] benzonatate 100 mg capsule 3-03 00:00: 00 Yes [id number] 100mg Take 1 capsule by mouth 3 (three) times daily as needed for Cough. [facility] ben[facility] 100 mg capsule 3- 00:00: 00 Yes [id number] 100mg Take 1 capsule by mouth 3 (three) times daily as needed [facility] Cough. [facility] mg capsule 3-03 00:00: 00 Yes [id number] 100mg Take 1 capsule by mouth 3 (three) times daily as needed for Cough. [facility] benzonatate 100 mg capsule 3-03 00:00: 00 Yes [id number] 100mg Take 1 capsule by mouth 3 (three) times daily as needed for Cough. [facility] benzonatate 100 mg capsule 3-03 00:00: 00 Yes [id number] 100mg Take 1 capsule by mouth 3 (three) times daily as needed for Cough. [facility] Dose Unknown 3- 00:00: 00 No Dose Unknown 3- 00:00: 00 No Dose Unknown - 00:00: 00 No Dose Unknown 3- 00:00: 00 No benzonatate 100 mg capsule 3- 00:00: 00 05-23 00:00 :00 No [id number] 100mg Take 1 capsule by mouth 3 (three) times daily as needed for Cough. [facility] benzonatate 100 mg capsule 3- 00:00: 00 05-23 00:00 :00 No [id number] 100mg Take 1 capsule by mouth 3 (three) times daily as needed for Cough. [facility] diphenhydrA MINE (BENADRYL) injection 25 mg 09-30 16:00: 00 09-30 15:17 :00 No 25mg 25 mg, Slow IV Push, ONCE, 1 dose, 09/30/20 at 1000, STAT [facility] metoclopram jerilyn HCl (REGLAN) injection 10 mg 09-30 16:00: 00 09-30 15:17 :00 No 10mg 10 mg, Slow IV Push, ONCE, 1 dose, 09/30/20 at 1000, VASILIY [facility] NaCl 0.9% (NS) bolus infusion 1,000 mL 09-30 15:00: 00 09-30 16:45 :00 No 1000mL at 999 mL/hr, 1,000 mL, IV Infusion, ONCE, 1 dose, 09/30/20 at 0900, VASILIY [facility] amLODIPine (NORVASC) 10 mg tablet 09-30 00:00: 00 Yes [id number] 10mg Take 1 tablet by mouth daily. [facility] amLODIPine (NORVASC) 10 mg tablet 0 09-30 00:00: 00 Yes [id number] 10mg Take 1 tablet by mouth daily. [facility] amLODIPine (NORVASC) 10 mg tablet 09-30 00:00: 00 Yes [id number] 10mg Take 1 tablet by mouth daily. [facility] amLODIPine (NORVASC) 10 mg tablet 09-30 00:00: 00 Yes [id number] 10mg Take 1 tablet by mouth daily. [facility] amLODIPine (NORVASC) 10 mg tablet 09-30 00:00: 00 Yes [id number] 10mg Take 1 tablet by mouth daily. [facility] amLODIPine (NORVASC) 10 mg tablet 09-30 00:00: 00 Yes [id number] 10mg Take 1 tablet by mouth daily. [facility] amLODIPine (NORVASC) 10 mg tablet 09-30 00:00: 00 Yes [id number] 10mg Take 1 tablet by mouth daily. [facility] amLODIPine (NORVASC) 10 mg tablet 0 09-30 00:00: 00 Yes [id number] 10mg Take 1 tablet by mouth daily. [facility] amLODIPine (NORVASC) 10 mg tablet 0 09-30 00:00: 00 Yes [id number] 10mg Take 1 tablet by mouth daily. [facility] amLODIPine (NORVASC) 10 mg tablet 0 09-30 00:00: 00 Yes [id number] 10mg Take 1 tablet by mouth daily. [facility] amLODIPine (NORVASC) 10 mg tablet 2020-0 09-30 00:00: 00 Yes [id number] 10mg Take 1 tablet by mouth daily. [facility] amLODIPine (NORVASC) 10 mg tablet 09-30 00:00: 00 Yes [id number] 10mg Take 1 tablet by mouth daily. [facility] amLODIPine (NORVASC) 10 mg tablet 09-30 00:00: 00 Yes [id number] 10mg Take 1 tablet by mouth daily. [facility] amLODIPine (NORVASC) 10 mg tablet 09-30 00:00: 00 Yes [id number] 10mg Take 1 tablet by mouth daily. [facility] amLODIPine (NORVASC) 10 mg tablet 09-30 00:00: 00 Yes [id number] 10mg Take 1 tablet by mouth daily. [facility] lisinopriL 10 mg tablet 09-30 00:00: 00 Yes [id number] 10mg Take 1 tablet by mouth at bedtime. [facility] amLODIPine (NORVASC) 10 mg tablet 09-30 00:00: 00 Yes [id number] 10mg Take 1 tablet by mouth daily. [facility] lisinopriL 10 mg tablet 09-30 00:00: 00 Yes [id number] 10mg Take 1 tablet by mouth at bedtime. [facility] amLODIPine (NORVASC) 10 mg tablet 09-30 00:00: 00 Yes [id number] 10mg Take 1 tablet by mouth daily. [facility] lisinopriL 10 mg tablet 09-30 00:00: 00 Yes [id number] 10mg Take 1 tablet by mouth at bedtime. [facility] amLODIPine (NORVASC) 10 mg tablet 09-30 00:00: 00 Yes [id number] 10mg Take 1 tablet by mouth daily. [facility] lisinopriL 10 mg tablet 09-30 00:00: 00 Yes [id number] 10mg Take 1 tablet by mouth at bedtime. [facility] amLODIPine (NORVASC) 10 mg tablet 09-30 00:00: 00 Yes [id number] 10mg Take 1 tablet by mouth daily. [facility] lisinopriL 10 mg tablet 09-30 00:00: 00 Yes [id number] 10mg Take 1 tablet by mouth at bedtime. [facility] amLODIPine (NORVASC) 10 mg tablet 09-30 00:00: 00 Yes [id number] 10mg Take 1 tablet by mouth daily. [facility] lisinopriL 10 mg tablet 09-30 00:00: 00 Yes [id number] 10mg Take 1 tablet by mouth at bedtime. [facility] amLODIPine (NORVASC) 10 mg tablet 09-30 00:00: 00 Yes [id number] 10mg Take 1 tablet by mouth daily. [facility] lisinopriL 10 mg tablet 09-30 00:00: 00 Yes [id number] 10mg Take 1 tablet by mouth at bedtime. [facility] amLODIPine (NORVASC) 10 mg tablet 09-30 00:00: 00 Yes [id number] 10mg Take 1 tablet by mouth daily. [facility] lisinopriL 10 mg tablet 09-30 00:00: 00 Yes [id number] 10mg Take 1 tablet by mouth at bedtime. [facility] amLODIPine (NORVASC) 10 mg tablet 09-30 00:00: 00 Yes [id number] 10mg Take 1 tablet by mouth daily. [facility] lisinopriL 10 mg tablet 09-30 00:00: 00 Yes [id number] 10mg Take 1 tablet by mouth at bedtime. [facility] amLODIPine (NORVASC) 10 mg tablet 09-30 00:00: 00 Yes [id number] 10mg Take 1 tablet by mouth daily. [facility] lisinopriL 10 mg tablet 09-30 00:00: 00 Yes [id number] 10mg Take 1 tablet by mouth at bedtime. [facility] amLODIPine (NORVASC) 10 mg tablet 09-30 00:00: 00 Yes [id number] 10mg Take 1 tablet by mouth daily. [facility] amLODIPine (NORVASC) 10 mg tablet 09-30 00:00: 00 Yes [id number] 10mg Take 1 tablet by mouth daily. [facility] amLODIPine (NORVASC) 10 mg tablet 0 09-30 00:00: 00 Yes [id number] 10mg Take 1 tablet by mouth daily. [facility] amLODIPine (NORVASC) 10 mg tablet 09-30 00:00: 00 Yes [id number] 10mg Take 1 tablet by mouth daily. [facility] lisinopriL 10 mg tablet 09-30 00:00: 00 Yes [id number] 10mg Take 1 tablet by mouth at bedtime. [facility] amLODIPine (NORVASC) 10 mg tablet 09-30 00:00: 00 Yes [id number] 10mg Take 1 tablet by mouth daily. [facility] amLODIPine (NORVASC) 10 mg tablet 09-30 00:00: 00 Yes [id number] 10mg Take 1 tablet by mouth daily. [facility] amLODIPine (NORVASC) 10 mg tablet 09-30 00:00: 00 Yes [id number] 10mg Take 1 tablet by mouth daily. [facility] amLODIPine (NORVASC) 10 mg tablet 09-30 00:00: 00 Yes [id number] 10mg Take 1 tablet by mouth daily. [facility] amLODIPine (NORVASC) 10 mg tablet 09-30 00:00: 00 Yes [id number] 10mg Take 1 tablet by mouth daily. [facility] amLODIPine (NORVASC) 10 mg tablet 09-30 00:00: 00 Yes [id number] 10mg Take 1 tablet by mouth daily. [facility] lisinopriL 10 mg tablet 0 09-30 00:00: 00 Yes [id number] 10mg Take 1 tablet by mouth at bedtime. [facility] amLODIPine (NORVASC) 10 mg tablet 09-30 00:00: 00 Yes [id number] 10mg Take 1 tablet by mouth daily. [facility] [facility] amLODIPine (NORVASC) 10 mg tablet 09-30 00:00: 00 Yes [id number] 10mg Take 1 tablet by mouth daily. [facility] amLODIPine (NORVASC) 10 mg tablet 09-30 00:00: 00 Yes [id number] 10mg Take 1 tablet by mouth daily. [facility] amLODIPine (NORVASC) 10 mg tablet 09-30 00:00: 00 Yes [id number] 10mg Take 1 tablet by mouth daily. [facility] amLODIPine (NORVASC) 10 mg tablet 09-30 00:00: 00 Yes [id number] 10mg Take 1 tablet by mouth daily. [facility] amLODIPine (NORVASC) 10 mg tablet 09-30 00:00: 00 Yes [id number] 10mg Take 1 tablet by mouth daily. [facility] amLODIPine (NORVASC) 10 mg tablet 09-30 00:00: 00 Yes [id number] 10mg Take 1 tablet by mouth daily. [facility] amLODIPine (NORVASC) 10 mg tablet 09-30 00:00: 00 Yes [id number] 10mg Take 1 tablet by mouth daily. [facility] amLODIPine (NORVASC) 10 mg tablet 09-30 00:00: 00 Yes [id number] 10mg Take 1 tablet by mouth daily. [facility] lisinopriL 10 mg tablet 09-30 00:00: 00 Yes [id number] 10mg Take 1 tablet by mouth at bedtime. [facility] amLODIPine (NORVASC) 10 mg tablet 09-30 00:00: 00 Yes [id number] 10mg Take 1 tablet by mouth daily. [facility] amLODIPine (NORVASC) 10 mg tablet 09-30 00:00: 00 Yes [id number] 10mg Take 1 tablet by mouth daily. [facility] amLODIPine (NORVASC) 10 mg tablet 09-30 00:00: 00 Yes [id number] 10mg Take 1 tablet by mouth daily. [facility] lisinopriL 10 mg tablet 09-30 00:00: 00 11-01 00:00 :00 No [id number] 10mg Take 1 tablet by mouth at bedtime. [facility] Dose Unknown 2019-09 00:00: 00 No Dose Unknown 2019-09 00:00: 00 No maalox:diph enhydrAMINE :lidocaine 2 % viscous 1:1:1 (FIRST-MOUT HWASH BLM) oral suspension 15 mL 2019-09 03:30: 00 07-02 03:30 :00 No 15mL 15 mL, Oral, ONCE, 1 dose, 07/01/20 at 2230, VASILIY [facility] sodium chloride (NS) injection 5 mL 2019-09 03:00: 48 Yes 5mL 5 mL, Intravenou s, PRN, Starting 07/01/20 at 2200, Until Discontinu ed, Routine, IV line flushing [facility] sucralfate 1 gram tablet 2019-09 00:00: 00 07-16 05:59 :00 No [id number] 1g Take 1 tablet by mouth before meals and at bedtime for 14 days. [facility] lisinopril 10 mg tablet 04-12 00:00: 00 No 1mg amlodipine 10 mg tablet 04-12 00:00: 00 No 1mg lisinopril 10 mg tablet 04-12 00:00: 00 No 1mg amlodipine 10 mg tablet 04-12 00:00: 00 No 1mg No known medications No [facility] Immunizations Ordered Immunization Name Filled Immunization Name Date Status Comments Source SARS-COV-2 COVID-19 PFIZER VACCINE 2021-05-07 00:00:00 Completed [facility] SARS-COV-2 COVID-19 PFIZER VACCINE 2021-05-07 00:00:00 Completed [facility] SARS-COV-2 COVID-19 PFIZER VACCINE 2021-05-07 00:00:00 Completed [facility] SARS-COV-2 COVID-19 PFIZER VACCINE 2021-05-07 00:00:00 Completed [facility] SARS-COV-2 COVID-19 PFIZER VACCINE 2021-05-07 00:00:00 Completed [facility] SARS-COV-2 COVID-19 PFIZER VACCINE 2021-05-07 00:00:00 Completed [facility] SARS-COV-2 COVID-19 PFIZER VACCINE 2021-05-07 00:00:00 Completed [facility] SARS-COV-2 COVID-19 PFIZER VACCINE 2021-05-07 00:00:00 Completed [facility] SARS-COV-2 COVID-19 PFIZER VACCINE 2021-05-07 00:00:00 Completed [facility] SARS-COV-2 COVID-19 PFIZER VACCINE 2021-05-07 00:00:00 Completed [facility] SARS-COV-2 COVID-19 PFIZER VACCINE 2021-05-07 00:00:00 Completed [facility] SARS-COV-2 COVID-19 PFIZER VACCINE 2021-05-07 00:00:00 Completed [facility] SARS-COV-2 COVID-19 PFIZER VACCINE 2021-05-07 00:00:00 Completed [facility] SARS-COV-2 COVID-19 PFIZER VACCINE 2021-05-07 00:00:00 Completed [facility] SARS-COV-2 COVID-19 PFIZER VACCINE 2021-05-07 00:00:00 Completed [facility] SARS-COV-2 COVID-19 PFIZER VACCINE 2021-05-07 00:00:00 Completed [facility] SARS-COV-2 COVID-19 PFIZER VACCINE 2021-05-07 00:00:00 Completed [facility] SARS-COV-2 COVID-19 PFIZER VACCINE 2021-05-07 00:00:00 Completed [facility] SARS-COV-2 COVID-19 PFIZER VACCINE 2021-05-07 00:00:00 Completed [facility] SARS-COV-2 COVID-19 PFIZER VACCINE 2021-05-07 00:00:00 Completed [facility] SARS-COV-2 COVID-19 PFIZER VACCINE 2021-05-07 00:00:00 Completed [facility] SARS-COV-2 COVID-19 PFIZER VACCINE 2021-05-07 00:00:00 Completed [facility] SARS-COV-2 COVID-19 PFIZER VACCINE 2021-05-07 00:00:00 Completed [facility] SARS-COV-2 COVID-19 PFIZER VACCINE 2021-05-07 00:00:00 Completed [facility] SARS-COV-2 COVID-19 PFIZER VACCINE 2021-05-07 00:00:00 Completed [facility] SARS-COV-2 COVID-19 PFIZER VACCINE Unknown Completed [facility] SARS-COV-2 COVID-19 PFIZER VACCINE Unknown Completed [facility] SARS-COV-2 COVID-19 PFIZER VACCINE Unknown Completed [facility] SARS-COV-2 COVID-19 PFIZER VACCINE Unknown Completed [facility] SARS-COV-2 COVID-19 PFIZER VACCINE Unknown Completed [facility] SARS-COV-2 COVID-19 PFIZER VACCINE Unknown Completed [facility] SARS-COV-2 COVID-19 PFIZER VACCINE Unknown Completed [facility] SARS-COV-2 COVID-19 PFIZER VACCINE Unknown Completed [facility] SARS-COV-2 COVID-19 PFIZER VACCINE Unknown Completed [facility] SARS-COV-2 COVID-19 PFIZER VACCINE Unknown Completed [facility] SARS-COV-2 COVID-19 PFIZER VACCINE Unknown Completed [facility] SARS-COV-2 COVID-19 PFIZER VACCINE Unknown Completed [facility] SARS-COV-2 COVID-19 PFIZER VACCINE Unknown Completed [facility] SARS-COV-2 COVID-19 PFIZER VACCINE Unknown Completed [facility] Vital Signs Vital Name Observation Time Observation Value Comments S ource Systolic blood pressure 2023-08-04 05:38:00 164 mm[Hg] [facility] Diastolic blood pressure 2023-08-04 05:38:00 99 mm[Hg] [facility] Heart rate 2023-08-04 05:38:00 70 /min [facility] 2023-08-04 05:38:00 37 Cindi [facility] Respiratory rate 2023-08-04 05:38:00 18 /min [facility] Oxygen saturation in Arterial blood by Pulse oximetry 2023-08-04 05:38:00 98 /min [facility] Body height 2023-08-04 02:22:00 195.6 cm [facility] Body weight 2023-08-04 02:22:00 118.389 kg [facility] BMI 2023-08-04 02:22:00 30.95 kg/m2 [facility] Systolic blood pressure 2023-07-25 18:00:00 146 mm[Hg] [facility] Diastolic blood pressure 2023-07-25 18:00:00 90 mm[Hg] [facility] Heart rate 2023-07-25 18:00:00 75 /min Unive [facility] Respiratory rate 2023-07-25 18:00:00 18 /min [facility] Oxygen saturation in Arterial blood by Pulse oximetry 2023-07-25 18:00:00 95 /min [facility] Body temperature 2023-07-25 15:57:00 37.61 Cindi [facility] Body height 2023-07-25 15:57:00 195.6 cm [facility] Body weight 2023-07-25 15:57:00 118.842 kg [facility] BMI 2023-07-25 15:57:00 31.07 kg/m2 [facility] Systolic blood pressure 2023-07-24 21:05:00 140 mm[Hg] [facility] Diastolic blood pressure 2023-07-24 21:05:00 94 mm[Hg] [facility] Heart rate 2023-07-24 21:05:00 71 /min [facility] Body temperature 2023-07-24 21:05:00 36.67 Cindi [facility] Respiratory rate 2023-07-24 21:05:00 18 /min [facility] Oxygen saturation in Arterial blood by Pulse oximetry 2023-07-24 21:05:00 97 /min [facility] Body weight 2023-07-24 18:35:00 115.667 kg [facility] BMI 2023-07-24 18:35:00 30.24 kg/m2 [facility] Systolic blood pressure 2023-07-12 03:30:00 156 mm[Hg] [facility] Diastolic blood pressure 2023-07-12 03:30:00 101 mm[Hg] [facility] Heart rate 2023-07-12 03:30:00 90 /min [facility] Respiratory rate 2023-07-12 03:30:00 20 /min [facility] Oxygen saturation in Arterial blood by Pulse oximetry 2023-07-12 03:30:00 94 /min [facility] Body temperature 2023-07-12 01:57:00 36.67 Cindi [facility] Body weight 2023-07-12 01:57:00 115.667 kg [facility] BMI 2023-07-12 01:57:00 30.24 kg/m2 [facility] Systolic blood pressure 2023-07-10 13:34:00 140 mm[Hg] [facility] Diastolic blood pressure 2023-07-10 13:34:00 95 mm[Hg] [facility] Heart rate 2023-07-10 13:34:00 76 /min [facility] Body temperature 2023-07-10 13:34:00 35.94 Cindi [facility] Body height 2023-07-10 13:34:00 195.6 cm [facility] Body weight 2023-07-10 13:34:00 118.298 kg [facility] BMI 2023-07-10 13:34:00 30.93 kg/m2 [facility] Oxygen saturation in Arterial blood by Pulse oximetry 2023-07-10 13:34:00 97 /min [facility] Systolic blood pressure 2023-07-08 13:43:00 140 mm[Hg] [facility] - External Diastolic blood pressure 2023-07-08 13:43:00 100 mm[Hg] [facility] - External Heart rate 2023-07-08 13:43:00 68 /min [facility]else [facility] - External Body temperature 2023-07-08 13:43:00 36.67 Cindi [facility] - External Respiratory rate 2023-07-08 13:43:00 16 /min [facility] - External Body height 2023-07-08 13:43:00 195.6 cm Kelsi ey Seybold - External Body weight 2023-07-08 13:43:00 116.121 kg [facility] - External BMI 2023-07-08 13:43:00 30.36 kg/m2 [facility] - External Systolic blood pressure 2023-07-03 12:45:10 149 mm[Hg] [facility] Diastolic blood pressure 2023-07-03 12:45:10 88 mm[Hg] [facility] Heart rate 2023-07-03 12:45:10 88 /min [facility] Respiratory rate 2023-07-03 12:45:10 16 /min [facility] Oxygen saturation in Arterial blood by Pulse oximetry 2023-07-03 12:45:10 97 /min [facility] Body temperature 2023-07-03 09:47:00 36.78 Cindi [facility] Body height 2023-07-03 09:47:00 195.6 cm [facility] Body weight 2023-07-03 09:47:00 113.853 kg [facility] BMI 2023-07-03 09:47:00 29.76 kg/m2 [facility] Systolic blood pressure 2023-05-20 20:08:00 132 mm[Hg] [facility] - External Diastolic blood pressure 2023-05-20 20:08:00 84 mm[Hg] [facility] - External Heart rate 2023-05-20 20:08:00 76 /min [facility] - External Body temperature 2023-05-20 20:08:00 37 Cindi [facility] - External Respiratory rate 2023-05-20 20:08:00 16 /min [facility] - External Body height 2023-05-20 20:08:00 195.6 cm [facility]elsi [facility] - External Body weight 2023-05-20 20:08:00 116.121 kg [facility] - External BMI 2023-05-20 20:08:00 30.36 kg/m2 [facility] - External Systolic blood pressure 2023-05-08 03:30:00 133 mm[Hg] [facility] Diastolic blood pressure 2023-05-08 03:30:00 87 mm[Hg] [facility] Heart rate 2023-05-08 03:30:00 70 /min [facility] Respiratory rate 2023-05-08 03:30:00 18 /min [facility] Oxygen saturation in Arterial blood by Pulse oximetry 2023-05-08 03:30:00 97 /min [facility] Body temperature 2023-05-07 22:36:00 36.72 Cindi [facility] Body weight 2023-05-07 22:36:00 113.853 kg [facility] BMI 2023-05-07 22:36:00 30.55 kg/m2 [facility] Systolic blood pressure 2023-05-02 05:00:00 134 mm[Hg] [facility] Diastolic blood pressure 2023-05-02 05:00:00 85 mm[Hg] [facility] Heart rate 2023-05-02 05:00:00 72 /min [facility] Oxygen saturation in Arterial blood by Pulse oximetry 2023-05-02 05:00:00 98 /min [facility] Body temperature 2023-05-02 02:28:00 37.28 Cindi [facility] Respiratory rate 2023-05-02 02:28:00 20 /min [facility] Body height 2023-05-02 02:28:00 193 cm [facility] Body weight 2023-05-02 02:28:00 113.399 kg [facility] BMI 2023-05-02 02:28:00 30.43 kg/m2 [facility] Systolic blood pressure 2023-04-22 18:02:36 130 mm[Hg] [facility] Diastolic blood pressure 2023-04-22 18:02:36 80 mm[Hg] [facility] Heart rate 2023-04-22 18:02:36 68 /min [facility] Body temperature 2023-04-22 18:02:36 36.78 Cindi [facility] Respiratory rate 2023-04-22 18:02:36 17 /min [facility] Oxygen saturation in Arterial blood by Pulse oximetry 2023-04-22 18:02:36 96 /min [facility] Body height 2023-04-22 08:58:00 195.6 cm [facility] Body weight 2023-04-22 08:58:00 113.944 kg [facility] BMI 2023-04-22 08:58:00 29.79 kg/m2 [facility] Systolic blood pressure 2023-04-16 13:30:00 142 mm[Hg] [facility] Diastolic blood pressure 2023-04-16 13:30:00 98 mm[Hg] [facility] Heart rate 2023-04-16 13:30:00 65 /min [facility] Respiratory rate 2023-04-16 13:30:00 17 /min [facility] Oxygen saturation in Arterial blood by Pulse oximetry 2023-04-16 13:30:00 98 /min [facility] Systolic blood pressure 2023-04-16 12:32:00 155 mm[Hg] [facility] Diastolic blood pressure 2023-04-16 12:32:00 108 mm[Hg] [facility] Heart rate 2023-04-16 12:32:00 61 /min Unive [facility] Respiratory rate 2023-04-16 12:32:00 18 /min [facility] Oxygen saturation in Arterial blood by Pulse oximetry 2023-04-16 12:32:00 97 /min [facility] Body temperature 2023-04-16 12:09:00 36.72 Cindi [facility] Body weight 2023-04-16 12:09:00 118.842 kg [facility] BMI 2023-04-16 12:09:00 31.89 kg/m2 [facility] Systolic blood pressure 2023-04-01 08:00:00 130 mm[Hg] [facility] Diastolic blood pressure 2023-04-01 08:00:00 75 mm[Hg] [facility] Heart rate 2023-04-01 08:00:00 75 /min [facility] Respiratory rate 2023-04-01 08:00:00 19 /min [facility] Oxygen saturation in Arterial blood by Pulse oximetry 2023-04-01 08:00:00 96 /min [facility] Body temperature 2023-04-01 05:02:00 36.28 Cindi [facility] Body height 2023-04-01 05:02:00 193 cm [facility] Body weight 2023-04-01 05:02:00 111.585 kg [facility] BMI 2023-04-01 05:02:00 29.94 kg/m2 [facility] Systolic blood pressure 2023-02-13 21:00:00 157 mm[Hg] [facility] Diastolic blood pressure 2023-02-13 21:00:00 89 mm[Hg] [facility] Heart rate 2023-02-13 21:00:00 102 /min Unive [facility] Body temperature 2023-02-13 21:00:00 37.89 Cindi [facility] Respiratory rate 2023-02-13 21:00:00 16 /min [facility] Body weight 2023-02-13 21:00:00 124.286 kg [facility] BMI 2023-02-13 21:00:00 33.35 kg/m2 [facility] Oxygen saturation in Arterial blood by Pulse oximetry 2023-02-13 21:00:00 97 /min [facility] Systolic blood pressure 2022-12-09 06:33:00 152 mm[Hg] [facility] Diastolic blood pressure 2022-12-09 06:33:00 96 mm[Hg] [facility] Heart rate 2022-12-09 06:33:00 60 /min [facility] Respiratory rate 2022-12-09 06:33:00 11 /min [facility] Oxygen saturation in Arterial blood by Pulse oximetry 2022-12-09 06:33:00 96 /min [facility] Body temperature 2022-12-09 04:51:00 37 Cindi [facility] Body height 2022-12-09 04:51:00 193 cm [facility] Body weight 2022-12-09 04:51:00 116.121 kg [facility] BMI 2022-12-09 04:51:00 31.16 kg/m2 [facility] Systolic blood pressure 2022-11-25 04:51:00 148 mm[Hg] [facility] Diastolic blood pressure 2022-11-25 04:51:00 96 mm[Hg] [facility] Heart rate 2022-11-25 04:51:00 71 /min [facility] Body temperature 2022-11-25 04:51:00 37 [facility] Respiratory rate 2022-11-25 04:51:00 16 /min [facility] Body height 2022-11-25 04:51:00 193 cm [facility] Body weight 2022-11-25 04:51:00 113.399 kg [facility] BMI 2022-11-25 04:51:00 30.43 kg/m2 [facility] Oxygen saturation in Arterial blood by Pulse oximetry 2022-11-25 04:51:00 97 /min [facility] Systolic blood pressure 2022-10-12 21:48:00 152 mm[Hg] [facility] Diastolic blood pressure 2022-10-12 21:48:00 82 mm[Hg] [facility] Heart rate 2022-10-12 21:48:00 70 /min [facility] Body temperature 2022-10-12 21:48:00 36.89 Cindi [facility] Respiratory rate 2022-10-12 21:48:00 18 /min [facility] Oxygen saturation in Arterial blood by Pulse oximetry 2022-10-12 21:48:00 94 /min [facility] Body height 2022-10-11 17:50:00 193 cm [facility] Body weight 2022-10-11 17:50:00 113.399 kg [facility] BMI 2022-10-11 17:50:00 30.43 kg/m2 [facility] Systolic blood pressure 2022-10-09 07:25:23 138 mm[Hg] [facility] Diastolic blood pressure 2022-10-09 07:25:23 86 mm[Hg] [facility] Heart rate 2022-10-09 07:25:23 73 /min Un[facility] Respiratory rate 2022-10-09 07:25:23 20 /min [facility] Oxygen saturation in Arterial blood by Pulse oximetry 2022-10-09 07:25:23 98 /min [facility] Body temperature 2022-10-09 04:12:00 37.28 Cindi [facility] Body height 2022-10-09 04:12:00 193 cm [facility] Body weight 2022-10-09 04:12:00 113.399 kg [facility] BMI 2022-10-09 04:12:00 30.43 kg/m2 [facility] Systolic blood pressure 2022-08-20 14:40:00 147 mm[Hg] [facility] Diastolic blood pressure 2022-08-20 14:40:00 95 mm[Hg] [facility] Heart rate 2022-08-20 14:40:00 75 /min Unive [facility] Body temperature 2022-08-20 14:40:00 36.89 Cindi [facility] Respiratory rate 2022-08-20 14:40:00 20 /min [facility] Body height 2022-08-20 14:40:00 190.5 cm [facility] Body weight 2022-08-20 14:40:00 115.667 kg [facility] BMI 2022-08-20 14:40:00 31.87 kg/m2 [facility] Oxygen saturation in Arterial blood by Pulse oximetry 2022-08-20 14:40:00 98 /min [facility] height 2022-07-11 09:30:00 77 [in_i] Commo n [facility] weight 2022-07-11 09:30:00 253.6 [lb_av] Co mmon [facility] temperature 2022-07-11 09:30:00 98.3 [degF] Com mon [facility] bmi 2022-07-11 09:30:00 30.07 kg/m2 Comm on [facility] oximetry 2022-07-11 09:30:00 99 % Commo n [facility] respiratory rate 2022-07-11 09:30:00 18 /min [facility] blood pressure systolic 2022-07-11 09:30:00 135 mm[Hg] [facility] blood pressure diastolic 2022-07-11 09:30:00 81 mm[Hg] [facility] Systolic blood pressure 2022-06-09 15:00:00 141 mm[Hg] [facility] Diastolic blood pressure 2022-06-09 15:00:00 94 mm[Hg] [facility] Heart rate 2022-06-09 15:00:00 59 /min [facility] Respiratory rate 2022-06-09 15:00:00 16 /min [facility] Oxygen saturation in Arterial blood by Pulse oximetry 2022-06-09 15:00:00 97 /min [facility] Body temperature 2022-06-09 11:56:00 36.17 Cindi [facility] Body height 2022-06-09 11:56:00 195.6 cm [facility] Body weight 2022-06-09 11:56:00 127.007 kg [facility] BMI 2022-06-09 11:56:00 33.20 kg/m2 [facility] Systolic blood pressure 2021-11-01 17:12:00 152 mm[Hg] [facility] Diastolic blood pressure 2021-11-01 17:12:00 89 mm[Hg] [facility] Heart rate 2021-11-01 17:12:00 72 /min Unive [facility] Body temperature 2021-11-01 17:12:00 36.17 Cindi [facility] Respiratory rate 2021-11-01 17:12:00 18 /min [facility] Oxygen saturation in Arterial blood by Pulse oximetry 2021-11-01 17:12:00 94 /min [facility] Body height 2021-10-30 23:19:00 195.6 cm [facility] Body weight 2021-10-30 23:19:00 116.983 kg [facility] BMI 2021-10-30 23:19:00 30.58 kg/m2 [facility] Systolic blood pressure 2021-05-24 06:00:00 135 mm[Hg] [facility] Diastolic blood pressure 2021-05-24 06:00:00 97 mm[Hg] [facility] Heart rate 2021-05-24 06:00:00 88 /min Un[facility] Respiratory rate 2021-05-24 06:00:00 21 /min [facility] Oxygen saturation in Arterial blood by Pulse oximetry 2021-05-24 06:00:00 94 /min [facility] Body temperature 2021-05-24 01:47:00 37.28 Cindi [facility] Body height 2021-05-24 01:47:00 195.6 cm [facility] Body weight 2021-05-24 01:47:00 127.461 kg [facility] acute [facility] BMI 2021-05-24 01:47:00 33.32 kg/m2 [facility] Systolic blood pressure 2021-05-22 23:36:00 154 mm[Hg] [facility] Diastolic blood pressure 2021-05-22 23:36:00 112 mm[Hg] [facility] Heart rate 2021-05-22 23:36:00 97 /min Un[facility] Body temperature 2021-05-22 23:36:00 36 Cindi [facility] Respiratory rate 2021-05-22 23:36:00 19 /min [facility] Body height 2021-05-22 23:36:00 195.6 cm [facility] Body weight 2021-05-22 23:36:00 127.007 kg [facility] BMI 2021-05-22 23:36:00 33.20 kg/m2 [facility] Oxygen saturation in Arterial blood by Pulse oximetry 2021-05-22 23:36:00 96 /min [facility] Systolic blood pressure 2021-05-02 00:01:00 157 mm[Hg] [facility] Diastolic blood pressure 2021-05-02 00:01:00 93 mm[Hg] [facility] Heart rate 2021-05-02 00:01:00 84 /min Un[facility] Body temperature 2021-05-02 00:01:00 36.56 Cindi [facility] Respiratory rate 2021-05-02 00:01:00 18 /min [facility] Body weight 2021-05-02 00:01:00 126.554 kg [facility] acute hospital BMI 2021-05-02 00:01:00 33.08 kg/m2 [facility] Oxygen saturation in Arterial blood by Pulse oximetry 2021-05-02 00:01:00 97 /min [facility] Systolic blood pressure 2021-04-02 01:01:00 144 mm[Hg] [facility] Diastolic blood pressure 2021-04-02 01:01:00 94 mm[Hg] [facility] Heart rate 2021-04-02 01:01:00 89 /min [facility] Body temperature 2021-04-02 01:01:00 37.06 Cindi [facility] Respiratory rate 2021-04-02 01:01:00 18 /min [facility] Body weight 2021-04-02 01:01:00 129.729 kg [facility] acute hospital BMI 2021-04-02 01:01:00 33.91 kg/m2 [facility] Oxygen saturation in Arterial blood by Pulse oximetry 2021-04-02 01:01:00 100 /min [facility] Systolic blood pressure 2021-04-02 01:01:00 144 mm[Hg] [facility] Diastolic blood pressure 2021-04-02 01:01:00 94 mm[Hg] [facility] Heart rate 2021-04-02 01:01:00 89 /min Un[facility] Body temperature 2021-04-02 01:01:00 37.06 Cindi [facility] Respiratory rate 2021-04-02 01:01:00 18 /min [facility] Body weight 2021-04-02 01:01:00 129.729 kg [facility] acute [facility] BMI 2021-04-02 01:01:00 33.91 kg/m2 [facility] acute hospital Oxygen saturation in Arterial blood by Pulse oximetry 2021-04-02 01:01:00 100 /min [facility] Systolic blood pressure 2021-03-18 03:16:13 140 mm[Hg] [facility] Diastolic blood pressure 2021-03-18 03:16:13 80 mm[Hg] [facility] Heart rate 2021-03-18 03:16:13 80 /min [facility] Body temperature 2021-03-18 03:16:13 36.67 Cindi [facility] Respiratory rate 2021-03-18 03:16:13 19 /min [facility] Oxygen saturation in Arterial blood by Pulse oximetry 2021-03-18 03:16:13 99 /min [facility] Body weight 2021-03-18 01:02:00 129.729 kg [facility] acute hospital BMI 2021-03-18 01:02:00 33.91 kg/m2 [facility] acute [facility] Systolic blood pressure 2021-03-18 03:16:13 140 mm[Hg] [facility] Diastolic blood pressure 2021-03-18 03:16:13 80 mm[Hg] [facility] Heart rate 2021-03-18 03:16:13 80 /min [facility] Body temperature 2021-03-18 03:16:13 36.67 Cindi [facility] Respiratory rate 2021-03-18 03:16:13 19 /min [facility] Oxygen saturation in Arterial blood by Pulse oximetry 2021-03-18 03:16:13 99 /min [facility] Body weight 2021-03-18 01:02:00 129.729 kg [facility] BMI 2021-03-18 01:02:00 33.91 kg/m2 [facility] Oxygen saturation in Arterial blood by Pulse oximetry 2020-11-15 04:31:00 97 /min [facility] Systolic blood pressure 2020-11-15 03:25:00 173 mm[Hg] [facility] Diastolic blood pressure 2020-11-15 03:25:00 97 mm[Hg] [facility] Heart rate 2020-11-15 03:25:00 84 /min [facility] Body temperature 2020-11-15 03:25:00 36.67 Cindi [facility] Respiratory rate 2020-11-15 03:25:00 20 /min [facility] Body weight 2020-11-15 03:25:00 132.45 kg [facility] BMI 2020-11-15 03:25:00 34.63 kg/m2 [facility] acute hospital Oxygen saturation in Arterial blood by Pulse oximetry 2020-11-15 04:31:00 97 /min [facility] Systolic blood pressure 2020-11-15 03:25:00 173 mm[Hg] [facility] Diastolic blood pressure 2020-11-15 03:25:00 97 mm[Hg] [facility] Heart rate 2020-11-15 03:25:00 84 /min [facility] Body temperature 2020-11-15 03:25:00 36.67 Cindi [facility] Respiratory rate 2020-11-15 03:25:00 20 /min [facility] Body weight 2020-11-15 03:25:00 132.45 kg [facility] BMI 2020-11-15 03:25:00 34.63 kg/m2 [facility] Systolic blood pressure 2020-09-30 16:30:00 121 mm[Hg] [facility] Diastolic blood pressure 2020-09-30 16:30:00 66 mm[Hg] [facility] Heart rate 2020-09-30 16:30:00 72 /min [facility] Respiratory rate 2020-09-30 16:30:00 19 /min [facility] Oxygen saturation in Arterial blood by Pulse oximetry 2020-09-30 16:30:00 94 /min [facility] Body weight 2020-09-30 14:20:00 136.079 kg [facility] acute hospital BMI 2020-09-30 14:20:00 35.57 kg/m2 [facility] acute hospital Body temperature 2020-09-30 14:10:00 37.06 Cindi [facility] Systolic blood pressure 2020-09-30 16:30:00 121 mm[Hg] [facility] Diastolic blood pressure 2020-09-30 16:30:00 66 mm[Hg] [facility] Heart rate 2020-09-30 16:30:00 72 /min [facility] Respiratory rate 2020-09-30 16:30:00 19 /min [facility] Oxygen saturation in Arterial blood by Pulse oximetry 2020-09-30 16:30:00 94 /min [facility] Body weight 2020-09-30 14:20:00 136.079 kg [facility] acute hospital BMI 2020-09-30 14:20:00 35.57 kg/m2 [facility] acute hospital Body temperature 2020-09-30 14:10:00 37.06 Cindi [facility] Systolic blood pressure 2020-07-02 04:00:00 132 mm[Hg] [facility] Diastolic blood pressure 2020-07-02 04:00:00 84 mm[Hg] [facility] Heart rate 2020-07-02 04:00:00 89 /min [facility] Oxygen saturation in Arterial blood by Pulse oximetry 2020-07-02 04:00:00 95 /min [facility] Body temperature 2020-07-02 02:53:00 36.94 Cindi [facility] Respiratory rate 2020-07-02 02:53:00 18 /min [facility] Body height 2020-07-02 02:53:00 195.6 cm [facility] acute [facility] Body weight 2020-07-02 02:53:00 136.079 kg [facility] acute hospital BMI 2020-07-02 02:53:00 35.57 kg/m2 [facility] acute hospital Systolic blood pressure 2020-07-02 04:00:00 132 mm[Hg] [facility] Diastolic blood pressure 2020-07-02 04:00:00 84 mm[Hg] [facility] Heart rate 2020-07-02 04:00:00 89 /min [facility] Oxygen saturation in Arterial blood by Pulse oximetry 2020-07-02 04:00:00 95 /min [facility] Body temperature 2020-07-02 02:53:00 36.94 Cindi [facility] Respiratory rate 2020-07-02 02:53:00 18 /min [facility] Body height 2020-07-02 02:53:00 195.6 cm [facility] acute hospital Body weight 2020-07-02 02:53:00 136.079 kg [facility] acute hospital BMI 2020-07-02 02:53:00 35.57 kg/m2 [facility] acute hospital BP Systolic 2022-07-09 10:22:00 158 mm[Hg] BP [...] 17.00 /min Procedures Procedure Date / Time Performed Performing Clinician Source CT ABDOMEN PELVIS WO CONTRAST 2023-08-04 04:23:15 Abraham Orantes [facility] BASIC METABOLIC PANEL (NA, K, CL, CO2, GLUCOSE, BUN, CREATININE, CA) 2023-08-04 02:57:00 Abraham Orantes [facility] CBC WITH DIFF 2023-08-04 02:57:00 [facility] 2023-08-04 02:57:00 Abraham Orantes [facility] NOTICE OF PRIVACY PRACTICES 2023-08-04 02:16:09 Doctor Unassigned, [place] [facility] CONSENT/REFUSAL FOR DIAGNOSIS AND TREATMENT 2023-08-04 02:15:41 Doctor Unassigned, [place] [facility] LIPASE 2023-07-25 16:37:00 [facility] MAGNESIUM 2023-07-25 16:37:00 [facility] TROPONIN I 2023-07-25 16:37:00 [facility] COMP. METABOLIC PANEL ([id number]) 2023-07-25 16:37:00 Trevor Taylor [facility] CBC WITH DIFF 2023-07-25 16:37:00 Trevor Taylor [facility] URINALYSIS 2023-07-25 16:37:00 Trevor Taylor [facility] CONSENT/REFUSAL FOR DIAGNOSIS AND TREATMENT 2023-07-25 15:41:41 Doctor Unassigned, [place] [facility] US GALL BLADDER 2023-07-24 22:46:02 Johnathan Avila er [facility] URINALYSIS 2023-07-24 20:10:00 Johnathan Avila [facility] EXTRA TUBE URINE CULTURE 2023-07-24 20:10:00 Ember Avila [facility] LIPASE 2023-07-24 20:09:00 Johnathan Avila [facility] COMP. METABOLIC PANEL ([id number]) 2023-07-24 20:09:00 Johnathan Avila [facility] LIPID PANEL ([id number])(TOTAL CHOLESTEROL, TRIGLYCERIDES, HDL) 2023-07-24 20:09:00 Johnathan Avila [facility] CBC WITH DIFF 2023-07-24 20:09:00 Johnathan Avila [facility] CONSENT/REFUSAL FOR DIAGNOSIS AND TREATMENT 2023-07-24 18:31:11 Doctor Unassigned, [place] [facility] XR CHEST 2 VW 2023-07-12 03:54:00 [facility] 2023-07-12 02:31:00 [facility] 2023-07-12 02:14:00 Norm Saleh [facility] COMP. METABOLIC PANEL ([id number]) 2023-07-12 02:14:00 Norm Saleh [facility] CBC WITH DIFF 2023-07-12 02:14:00 Norm Saleh [facility] COVID-19 (ID NOW RAPID TESTING) 2023-07-12 02:14:00 Norm Saleh [facility] CONSENT/REFUSAL FOR DIAGNOSIS AND TREATMENT 2023-07-12 01:47:09 Doctor Unassigned, [place] [facility] CONSENT FOR MEDICAL TREATMENT OF A MINOR 2023-07-10 05:01:00 Doctor Unassigned, [place] [facility] CT ABDOMEN PELVIS W CONTRAST 2023-07-03 10:43:57 DeedeefderHaresh chan [facility] URINALYSIS 2023-07-03 10:23:00 DeedeefderHaresh chan [facility] LIPASE 2023-07-03 10:11:00 LubnaerHaresh chan [facility] COMP. METABOLIC PANEL ([id number]) 2023-07-03 10:11:00 DeedeefderHaresh chan [facility] CBC WITH DIFF 2023-07-03 10:11:00 Haresh Santamaria [facility] CONSENT/REFUSAL FOR DIAGNOSIS AND TREATMENT 2023-07-03 09:36:41 Doctor Unassigned, [place] [facility] CT ABDOMEN PELVIS W CONTRAST 2023-05-08 02:15:59 Riya Joseph Connie [facility] HB ABO GROUPING 2023-05-08 01:25:00 Elvin Joseph [facility] LIPASE 2023-05-08 01:19:00 Elvin Joseph Marie [facility] COMP. METABOLIC PANEL ([id number]) 2023-05-08 01:19:00 Riya Joseph [facility] CBC WITH DIFF 2023-05-08 01:19:00 Elvin Joseph Marie [facility] COVID-19 (ID NOW RAPID TESTING) 2023-05-08 01:19:00 Riya Joseph Connie [facility] CONSENT/REFUSAL FOR DIAGNOSIS AND TREATMENT 2023-05-07 22:22:14 Doctor Unassigned, [place] [facility] LIPASE 2023-05-02 03:01:00 Aydin Matos [facility] COMP. METABOLIC PANEL ([id number]) 2023-05-02 03:01:00 Aydin Matos [facility] ETHANOL 2023-05-02 03:01:00 Aydin Matos [facility] CBC WITH DIFF 2023-05-02 03:01:00 Aydin Matos [facility] URINALYSIS 2023-05-02 03:01:00 Aydin Matos [facility] URINE DRUG (IMMUNOASSAY) - COMPREHENSIVE DRUG SCREEN W/O REFLEX 2023-05-02 03:01:00 Aydin Matos [facility] CONSENT/REFUSAL FOR DIAGNOSIS AND TREATMENT 2023-05-02 02:28:20 Doctor Unassigned, [place] [facility] BASIC METABOLIC PANEL (NA, K, CL, CO2, GLUCOSE, BUN, CREATININE, CA) 2023-04-22 16:47:00 Natali Alexander [facility] LIPASE 2023-04-22 12:58:00 Natali Alexander [facility] BASIC METABOLIC PANEL (NA, K, CL, CO2, GLUCOSE, BUN, CREATININE, CA) 2023-04-22 12:58:00 Natali Alexander [facility] URINALYSIS 2023-04-22 11:44:00 Abraham Orantes [facility] CREATINE KINASE 2023-04-22 09:06:00 Natali Alexander [facility] LIPASE 2023-04-22 09:06:00 Natali Alexander [facility] COMP. METABOLIC PANEL ([id number]) 2023-04-22 09:06:00 Abraham Orantes [facility] CBC WITH DIFF 2023-04-22 09:06:00 Abraham Orantes [facility] CONSENT/REFUSAL FOR DIAGNOSIS AND TREATMENT 2023-04-22 08:52:58 Doctor Unassigned, [place] [facility] LIPASE 2023-04-16 12:30:00 Christa Adelaide [facility] TROPONIN I 2023-04-16 12:30:[address] [facility] COMP. METABOLIC PANEL ([id number]) 2023-04-16 12:30:00 Adelaide Goodwin [facility] CBC WITH DIFF 2023-04-16 12:30:00 Adelaide Goodwin [facility] CONSENT/REFUSAL FOR DIAGNOSIS AND TREATMENT 2023-04-16 11:48:23 Doctor Unassigned, [place] [facility] LIPASE 2023-04-01 05:08:00 [facility] TROPONIN I 2023-04-01 05:08:00 Hemalatha Mor[facility] COMP. METABOLIC PANEL ([id number]) 2023-04-01 05:08:00 Hemalatha Mora [facility] CBC WITH DIFF 2023-04-01 05:08:00 Hemalatha Mora [facility] URINALYSIS 2023-04-01 05:08:00 Hemalatha Mor[facility] CONSENT/REFUSAL FOR DIAGNOSIS AND TREATMENT 2023-04-01 04:51:45 Doctor Unassigned, [place] [facility] ASSIGNMENT OF BENEFITS 2023-02-13 21:19:49 Docto r Unassigned, [place] [facility] POCT GLUCOSE (AUTOMATED) 2023-02-13 21:00:00 Alan Gonzales [facility] CONSENT/REFUSAL FOR DIAGNOSIS AND TREATMENT 2023-02-13 20:50:30 Doctor Unassigned, [place] [facility] REFERRAL- REQUEST/RESPONSE 2023-01-05 05:01:00 Doctor Unassigned, [place] [facility] LIPASE 2022-12-09 05:03:00 Soham Clarke [facility] COMP. METABOLIC PANEL ([id number]) 2022-12-09 05:03:00 Soham Clarke [facility] CBC WITH DIFF 2022-12-09 05:03:00 [facility] 2022-12-09 05:03:00 Soham Clarke [facility] NOTICE OF PRIVACY PRACTICES 2022-12-09 04:46:36 Doctor Unassigned, [place] [facility] CONSENT/REFUSAL FOR DIAGNOSIS AND TREATMENT 2022-12-09 04:46:16 Doctor Unassigned, [place] [facility] CT ABDOMEN PELVIS W CONTRAST 2022-11-25 05:38:20 Lion Nascimento [facility] LIPASE 2022-11-25 05:06:00 Lion Nascimento [facility] HEPATIC FUNCTION PANEL ([id number]) (ALB,T.PRO,BILI T,BU/BC,ALT,AST,ALK PHOS) 2022-11-25 05:06:00 Lion Nascimento [facility] BASIC METABOLIC PANEL (NA, K, CL, CO2, GLUCOSE, BUN, CREATININE, CA) 2022-11-25 05:06:00 Lion Nascimento [facility] CBC WITH DIFF 2022-11-25 05:06:00 Lion Nascimento [facility] URINALYSIS 2022-11-25 05:06:00 Lion Nascimento [facility] CONSENT/REFUSAL FOR DIAGNOSIS AND TREATMENT 2022-11-25 04:35:51 Doctor Unassigned, [place] [facility] EXTERNAL PROVIDER RECORDS 2022-10-23 06:01:00 Do ctor Unassigned, [place] [facility] CBC WITH DIFF 2022-10-12 21:26:00 Lb Bates [facility] PROSTATIC SPECIFIC ANTIGEN 2022-10-12 10:48:00 Jonh Roman [facility] HEPATIC FUNCTION PANEL ([id number]) (ALB,T.PRO,BILI T,BU/BC,ALT,AST,ALK PHOS) 2022-10-12 10:48:00 Lb Bates [facility] BASIC METABOLIC PANEL (NA, K, CL, CO2, GLUCOSE, BUN, CREATININE, CA) 2022-10-12 10:48:00 Lb Bates [facility] CBC WITH DIFF 2022-10-12 10:48:00 Lb Bates [facility] HEPATIC FUNCTION PANEL ([id number]) (ALB,T.PRO,BILI T,BU/BC,ALT,AST,ALK PHOS) 2022-10-11 23:53:00 Lb Bates [facility] BASIC METABOLIC PANEL (NA, K, CL, CO2, GLUCOSE, BUN, CREATININE, CA) 2022-10-11 23:53:00 Lb Bates [facility] US GALL BLADDER 2022-10-11 22:28:58 J[facility] ABORH CONFIRMATION (LAB ONLY) 2022-10-11 21:24:00 Lb Bates [facility] URINALYSIS 2022-10-11 21:23:00 Lb Bates [facility] HB ABO GROUPING 2022-10-11 20:41:00 Lb Bates [facility] CBC WITH DIFF 2022-10-11 20:35:00 [facility]PELVIS 2022-10-11 14:52:00 Aydin Matos [facility] HB ECG ROUTINE & RHYTHM STRIP 2022-10-11 13:48:04 Aydin Matos [facility] LIPASE 2022-10-11 13:42:00 Aydin Matos [facility] TROPONIN I 2022-10-11 13:42:00 Aydin Matos [facility] COMP. METABOLIC PANEL ([id number]) 2022-10-11 13:42:00 Aydin Matos [facility] LIPID PANEL ([id number])(TOTAL CHOLESTEROL, TRIGLYCERIDES, HDL) 2022-10-11 13:42:00 Lb Bates [facility] CBC WITH DIFF 2022-10-11 13:42:00 Aydin Matos [facility] PROTHROMBIN TIME / INR 2022-10-11 13:42:00 Nicholas Matos [facility] ACTIVATED PARTIAL THRMPLAS TAE 2022-10-11 13:42:00 Aydin Matos [facility] N-TERMINAL PRO-BNP 2022-10-11 13:42:00 Aydin Matos [facility] URINE DRUG (IMMUNOASSAY) - COMPREHENSIVE DRUG SCREEN W/O REFLEX 2022-10-11 13:42:00 Aydin Matos [facility] CONSENT/REFUSAL FOR DIAGNOSIS AND TREATMENT 2022-10-11 12:24:48 Doctor Unassigned, [place] [facility] CT ABDOMEN PELVIS W CONTRAST 2022-10-09 06:30:25 Abraham Orantes [facility] LIPASE 2022-10-09 05:24:00 Abraham Orantes [facility] COMP. METABOLIC PANEL ([id number]) 2022-10-09 05:24:00 Abraham Orantes [facility] CBC WITH DIFF 2022-10-09 05:24:00 Abraham Orantes [facility] URINALYSIS 2022-10-09 05:24:00 Abraham Orantes [facility] CONSENT/REFUSAL FOR DIAGNOSIS AND TREATMENT 2022-10-09 03:56:57 Doctor Unassigned, [place] [facility] COMP. METABOLIC PANEL ([id number]) 2022-08-20 15:11:00 Trevor Taylor Tiffanie [facility] CBC WITH DIFF 2022-08-20 15:11:00 Trevor Taylor [facility] URINALYSIS 2022-08-20 15:11:00 Trevor Taylor [facility] CONSENT/REFUSAL FOR DIAGNOSIS AND TREATMENT 2022-08-20 14:32:58 Doctor Unassigned, [place] [facility] CT ABDOMEN PELVIS W CONTRAST 2022-06-09 13:12:35 Soham Clarke [facility] LIPASE 2022-06-09 12:48:00 Soham Clarke [facility] COMP. METABOLIC PANEL ([id number]) 2022-06-09 12:48:00 Soham Clarke [facility] CBC WITH DIFF 2022-06-09 12:48:00 [facility] 2022-06-09 12:48:00 Soham Clarke [facility] NOTICE OF PRIVACY PRACTICES 2022-06-09 11:47:39 Doctor Unassigned, [place] [facility] CONSENT/REFUSAL FOR DIAGNOSIS AND TREATMENT 2022-06-09 11:47:18 Doctor Unassigned, [place] [facility] PHOSPHORUS 2021-11-01 09:55:00 Jerrica Sexton [facility] MAGNESIUM 2021-11-01 09:55:00 Jerrica Sexton [facility] BASIC METABOLIC PANEL (NA, K, CL, CO2, GLUCOSE, BUN, CREATININE, CA) 2021-11-01 09:55:00 Darshan [facility] CBC WITH DIFF 2021-11-01 09:55:00 Jessi Sextonthia [facility] PHOSPHORUS 2021-10-31 08:45:00 Leela [facility] CREATINE KINASE 2021-10-31 08:45:00 Roxanne Swenson [facility] MAGNESIUM 2021-10-31 08:45:00 Emelia Gallego [facility] TROPONIN I 2021-10-31 08:45:00 Leela [facility] COMP. METABOLIC PANEL ([id number]) 2021-10-31 08:45:00 Leela rgeg [facility] CBC WITH DIFF 2021-10-31 08:45:00 Emelia Gallego [facility] PROTHROMBIN TIME / INR 2021-10-31 08:45:00 Leela [facility] N-TERMINAL PRO-BNP 2021-10-31 08:45:00 Roxanne Swenson [facility] LACTIC ACID WHOLE BLOOD 2021-10-31 08:45:00 Erwin Swenson [facility] FECES CULTURE 2021-10-30 22:27:00 Monica Hernandez [facility] OCCULT (GUAIAC) BLOOD 2021-10-30 22:27:00 Juany Hernandez [facility] CLOSTRIDIUM DIFFICILE TOXIN 2021-10-30 22:27:00 Monica Hernandez [facility] COVID-19 (ID NOW RAPID TESTING) 2021-10-30 21:24:00 Madison Sepulveda [facility] LAB ONLY COVID INTERPRETATION 2021-10-30 21:24:00 Madison Sepulveda [facility] CT ABDOMEN PELVIS W CONTRAST 2021-10-30 20:44:09 Madison Sepulveda [facility] LIPASE 2021-10-30 20:25:00 [facility] 2021-10-30 20:25:00 Roxanne Swenson [facility] COMP. METABOLIC PANEL ([id number]) 2021-10-30 20:25:00 Madison Sepulveda [facility] CBC WITH DIFF 2021-10-30 20:25:00 Madison Sepulveda [facility] URINALYSIS 2021-10-30 20:25:[address] [facility] N-TERMINAL PRO-BNP 2021-10-30 20:25:00 Roxanne Swenson [facility] CONSENT/REFUSAL FOR DIAGNOSIS AND TREATMENT 2021-10-30 19:24:05 Doctor Unassigned, [place] [facility] CREATINE KINASE 2021-05-24 04:40:[address] [facility] BASIC METABOLIC PANEL (NA, K, CL, CO2, GLUCOSE, BUN, CREATININE, CA) 2021-05-24 04:40:00 Felipe Ortega [facility] URINALYSIS 2021-05-24 02:14:00 Felipe Ortega [facility] CREATINE KINASE 2021-05-24 01:53:[address] [facility] TROPONIN I 2021-05-24 01:53:00 Felipe Ortega [facility] COMP. METABOLIC PANEL ([id number]) 2021-05-24 01:53:00 Felipe Ortega [facility] CBC WITH DIFF 2021-05-24 01:53:00 Felipe Ortega [facility] N-TERMINAL PRO-BNP 2021-05-24 01:53:00 Felipe Ortega [facility] ASSIGNMENT OF BENEFITS 2021-05-23 00:46:04 Docto r Unassigned, [place] [facility] CONSENT/REFUSAL FOR DIAGNOSIS AND TREATMENT 2021-05-22 23:31:57 Doctor Unassigned, [place] [facility] SARS-COV-2 COVID-19 VACCINE,0.3ML,IM (PFIZER) 2021-05-07 16:12:40 Doctor Unassigned, [place] [facility] RAPID STREP SCREEN FOR GROUP A 2021-05-02 00:07:00 Aydin Matos [facility] COVID-19 (ID NOW RAPID TESTING) 2021-05-02 00:07:00 Aydin Matos [facility] CONSENT/REFUSAL FOR DIAGNOSIS AND TREATMENT 2021-05-01 23:56:07 Doctor Unassigned, [place] [facility] RAPID STREP SCREEN FOR GROUP A 2021-04-02 01:05:00 Nikhil Blanton [facility] COVID-19 (ID NOW RAPID TESTING) 2021-04-02 01:05:00 Nikhil Blanton [facility] NOTICE OF PRIVACY PRACTICES 2021-04-02 00:56:18 Doctor Unassigned, [place] [facility] CONSENT/REFUSAL FOR DIAGNOSIS AND TREATMENT 2021-04-02 00:49:05 Doctor Unassigned, [place] [facility] XR WRIST 3+ VW LEFT 2021-03-18 01:19:59 Destini Blanton [facility] URINALYSIS 2021-03-18 01:12:00 Nikhil Blanton [facility] CONSENT/REFUSAL FOR DIAGNOSIS AND TREATMENT 2021-03-18 00:56:01 Doctor Unassigned, [place] [facility] XR CHEST 1 VW 2020-11-15 03:48:28 Darnell Hsu [facility] CONSENT/REFUSAL FOR DIAGNOSIS AND TREATMENT 2020-11-15 03:11:27 Doctor Unassigned, [place] [facility] CT HEAD WO CONTRAST 2020-09-30 15:00:43 Jessica Siddiqui ra [facility] XR CHEST 1 VW 2020-09-30 14:37:13 [facility] 2020-09-30 14:25:00 Jessy Siddiqui Un [facility] TROPONIN I 2020-09-30 14:25:00 Jessy Siddiqui [facility] COMP. METABOLIC PANEL ([id number]) 2020-09-30 14:25:00 Jessy Siddiqui [facility] CBC WITH DIFF 2020-09-30 14:25:00 Jessy Siddiqui [facility] N-TERMINAL PRO-BNP 2020-09-30 14:25:00 Solitario Siddiqui [facility] NOTICE OF PRIVACY PRACTICES 2020-09-30 13:57:13 Doctor Unassigned, [place] [facility] CONSENT/REFUSAL FOR DIAGNOSIS AND TREATMENT 2020-09-30 13:55:57 Doctor Unassigned, [place] [facility] EKG-12 LEAD 2020-07-02 03:20:42 Felipe Ortega [facility] LIPASE 2020-07-02 03:05:00 Abraham Orantes [facility] TROPONIN I 2020-07-02 03:05:00 Felipe Ortega [facility] COMP. METABOLIC PANEL ([id number]) 2020-07-02 03:05:00 Arbaham Orantes [facility] CBC WITH DIFF 2020-07-02 03:05:00 Abraham Orantes [facility] NOTICE OF PRIVACY PRACTICES 2020-07-02 02:48:43 Doctor Unassigned, [place] [facility] CONSENT/REFUSAL FOR DIAGNOSIS AND TREATMENT 2020-07-02 02:46:14 Doctor Unassigned, [place] [facility] Plan of Care Planned Activity Planned Date Details Comments Source Goal Plan of Care Note [code = 02349-9] Goal Plan of Care Note [code = 88519-4] Goal Plan of Care Note [code = 07679-8] Goal Plan of Care Note [code = 79686-4] Goal Plan of Care Note [code = 12680-4] Goal Plan of Care Note [code = 00425-4] Goal Plan of Care Note [code = 64922-9] Goal Plan of Care Note [code = 00858-2] Goal Plan of Care Note [code = 70893-8] Goal Plan of Care Note [code = 90408-4] Goal Plan of Care Note [code = 96069-9] Goal Plan of Care Note [code = 44939-5] Goal Plan of Care Note [code = 01430-8] Goal Plan of Care Note [code = 81937-1] Goal Plan of Care Note [code = 85748-7] Encounters Start Date/Time End Date/Time Encounter Type Admission Type Attending [facility] Care Facility Care Department Encounter ID Source 2022-07-29 14:17:02 Outpatient Mayuri James [facility] [facility] [id number] [facility] 2022-07-11 08:20:03 Outpatient Mayuri [facility] [id number] [facility] 2023-08-14 00:00:00 2023-08-14 00:00:00 Outpatient MERLYN [facility] [id number] [facility] 2023-08-11 16:15:00 2023-08-11 16:15:00 Outpatient HENRIK YOBANYMARJ HOLLIDAY [id number] Luz Maria marcell 2023-08-03 20:26:00 2023-08-04 00:05:00 Emergency X ABRAHAM ORANTES [facility] E[facility] [id number] [facility] 2023-08-03 20:26:00 2023-08-04 00:05:00 Emergency Yohanakadenmerlyn Sammieromie Genao [facility] 1..840.114 350.1.13.10 4.2.7.2.686 [id number] [facility] 2023-08-03 00:00:00 2023-08-03 00:00:00 Outpatient KIARA RICHARDSON [id number] Luz Maria [facility] 2023-08-03 00:00:00 2023-08-03 00:00:00 Orders Only Doctor Unassigned, [place] [facility] 1..840.114 350.1.13.10 4.2.7.2.686 [id number] [id number] [facility] 2023-07-25 09:58:00 2023-07-25 12:56:00 Emergency X Trevor TAYLOR [facility] ERT [id number] [facility] 2023-07-25 09:58:00 2023-07-25 12:56:00 Emergency Trevor Taylor [facility] 1.2840.114 350.1.13.10 4.2.7.2.686 [id number] [id number] [facility] 2023-07-24 12:36:00 2023-07-24 17:49:00 Emergency X JOHNATHAN AVILA [facility] ERT [id number] [facility] 2023-07-24 12:36:00 2023-07-24 17:49:00 Emergency Johnathan Avila Olegario [facility] 1.2840.114 350.1.13.10 4.2.7.2.686 [id number] [id number] [facility] 2023-07-24 14:30:00 2023-07-24 14:30:00 Outpatient ADAN CHESTER [id number] Luz Maria Ng 2023-07-24 00:00:00 2023-07-24 00:00:00 Telephone [facility] [place] [facility] 1.2840.114 350.1.13.10 4.2.7.2.686 [id number] [facility] 2023-07-23 05:22:00 2023-07-23 10:02:00 Emergency Jessie Lion [facility] [id number] [address] [place] [address] 2023-07-22 00:00:00 2023-07-22 00:00:00 Telephone [facility] [place] [facility] 1.2840.114 350.1.13.10 4.2.7.2.686 [id number] [id number] [facility] 2023-07-20 00:00:00 2023-07-20 00:00:00 Telephone [facility] [place] [facility] 1.2840.114 350.1.13.10 4.2.7.2.686 [id number] 072 [id number] [facility] 2023-07-17 13:45:00 2023-07-17 13:45:00 Outpatient NANCY BRENNAN [id number] Luz Maria marcell 2023-07-11 20:53:00 2023-07-11 23:38:00 Emergency X STEPHIE HEWITT [facility] ERT [id number] [facility] 2023-07-11 20:53:00 2023-07-11 23:38:00 Emergency Stephie Hew[facility] 1..840.114 350.1.13.10 4.2.7.2.686 [id number] [facility] 2023-07-10 08:45:00 2023-07-10 12:03:37 Outpatient R MERLYN [facility]IDALGO [facility] [id number] [facility] 2023-07-10 08:45:00 2023-07-10 12:03:37 Office Visit Merlyn Hidalgo [facility] 1..840.114 350.1.13.10 4.2.7.2.686 [id number] [id number] [facility] 2023-07-10 00:00:00 2023-07-10 00:00:00 Orders Only Doctor Unassigned, [place] [facility] 1..840.114 350.1.13.10 4.2.7.2.686 [id number] [facility] 2023-07-08 09:15:00 2023-07-08 09:15:00 Outpatient KIARA RICHARDSON [id number] Luz Maria mcfarooq 2023-07-03 04:49:00 2023-07-03 09:47:00 Emergency X MIRIAM LUDWIG DIETRICH [facility] ERT [id number] [facility] 2023-07-03 04:49:00 2023-07-03 09:47:00 Emergency Hina Paoloalvaro Ludwig [place] [facility] 1.2.840.114 350.1.13.10 4.2.7.2.686 [id number] [facility] 2023-07-01 22:56:00 2023-07-02 01:00:00 Emergency EM Jessie Gleason [facility] ER [id number] [facility] 2023-05-20 15:50:00 2023-05-20 15:50:00 Outpatient LAB56 LUZ MARIA HOLLIDAY [id number] Luz Maria [facility] 2023-05-20 15:15:00 2023-05-20 15:15:00 Outpatient KIARA RICHARDSON [id number] Luz Maria [facility] 2023-05-07 17:37:00 2023-05-07 23:23:00 Emergency X MANFRED KAN [facility] E[facility] [id number] [facility] 2023-05-07 17:37:00 2023-05-07 23:23:00 Emergency Kelsi sharma [facility] 1.2.840.114 350.1.13.10 4.2.7.2.686 [id number] 014 [id number] [facility] 2023-05-01 21:39:00 2023-05-02 00:35:00 Emergency X AYDIN MATOS [facility] ERT [id number] [facility] 2023-05-01 21:39:00 2023-05-02 00:35:00 Emergency Aydin Matos [facility] 1.2.840.114 350.1.13.10 4.2.7.2.686 [id number] [facility] 2023-04-22 03:51:00 2023-04-22 13:11:00 Emergency X NATALI ALEXANDER [facility] ERT [id number] [facility] 2023-04-22 03:51:00 2023-04-22 13:11:00 Emergency Abraham Orantes Whitney [facility] 1.2840.114 350.1.13.10 4.2.7.2.686 [id number] [id number] [facility] 2023-04-16 07:09:00 2023-04-16 09:00:00 Emergency X ADELAIDE GOODWIN [facility] ERT [id number] [facility] 2023-04-16 07:09:00 2023-04-16 09:00:00 Emergency Adelaide Goodwin [facility] 1.2840.114 350.1.13.10 4.2.7.2.686 [id number] [facility] 2023-03-31 23:59:00 2023-04-01 03:24:00 Emergency [facility] [id number] [facility] 2023-03-31 23:59:00 2023-04-01 03:24:00 Emergency Hemalatha Mora [facility] 1.2840.114 350.1.13.10 4.2.7.2.686 [id number] [id number] [facility] 2023-02-13 16:02:00 2023-02-13 17:25:00 Emergency X CHRISTIAN JESSICA [facility] ERT [id number] [facility] 2023-02-13 16:02:00 2023-02-13 17:25:00 Emergency Jessica Gonzales [facility] 1.2840.114 350.1.13.10 4.2.7.2.686 [id number] 084 [id number] [facility] 2023-01-05 00:00:00 2023-01-05 00:00:00 Orders Only Doctor Unassigned, [place] [facility] 1.2840.114 350.1.13.10 4.2.7.2.686 [id number] [id number] [facility] 2022-12-29 17:25:40 2022-12-29 17:25:40 Outpatient SFA [id number] 0417 Dewey Ponce 2022-12-09 00:01:00 2022-12-09 01:39:00 Emergency X SOHAM CLARKE [facility] ERT [id number] [facility] 2022-12-09 00:01:00 2022-12-09 01:39:00 Emergency Soham Clarke Lee [facility] 1.2.840.114 350.1.13.10 4.2.7.2.686 [id number] [id number] [facility] 2022-11-24 23:44:00 2022-11-25 02:56:00 Emergency X AYDIN MATOS [facility] ERT [id number] [facility] 2022-11-24 23:44:00 2022-11-25 02:56:00 Emergency AzamLion [facility] 1.2.840.114 350.1.13.10 4.2.7.2.686 [id number] [id number] [facility] 2022-10-25 00:00:00 2022-10-25 00:00:00 Patient Secure Msg Doctor Unassigned, [place] [facility] 1.2.840.114 350.1.13.10 4.2.7.2.686 [id number] [facility] 2022-10-23 00:00:00 2022-10-23 00:00:00 Orders Only Doctor Unassigned, [place] [facility] 1.2840.114 350.1.13.10 4.2.7.2.686 [id number] [facility] 2022-10-11 06:41:00 2022-10-12 17:56:00 Outpatient X MARK HERNANDEZ [facility] MARTI [id number] [facility] 2022-10-11 06:41:00 2022-10-12 17:56:00 Emergency Carlo Aydin Hernandez Mark Kilpatrick [facility] 1.2.840.114 350.1.13.10 4.2.7.2.686 [id number] [facility] 2022-10-08 22:15:00 2022-10-09 01:39:00 Emergency X ABRAHAM ORANTES [facility] ERT [id number] [facility] 2022-10-08 22:15:00 2022-10-09 01:39:00 Emergency Abraham Orantes [facility] 1.2.840.114 350.1.13.10 4.2.7.2.686 [id number] [id number] [facility] 2022-10-08 00:00:00 2022-10-08 00:00:00 Orders Only Doctor Unassigned, [place] [facility] 1.2.840.114 350.1.13.10 4.2.7.2.686 [id number] 009 [id number] [facility] 2022-08-20 08:42:00 2022-08-20 12:19:00 Emergency X CLAUDIA, K [facility] ERT [id number] [facility] 2022-08-20 08:42:00 2022-08-20 12:19:00 Emergency Trevor Taylor [facility] 1.2.840.114 350.1.13.10 4.2.7.2.686 [id number] [id number] [facility] 2022-07-11 00:00:00 2022-07-11 00:00:00 OFFICE VISIT NEW PT LEVEL 3 STLMLC STLMLC [id number] [facility] 2022-07-09 10:07:22 2022-07-09 10:07:22 Outpatient SFA [id number] 1026 Dewey Ponce 2022-07-09 00:00:00 2022-07-09 00:00:00 Outpatient Visit [id number] 2022-06-09 06:57:00 2022-06-09 10:27:00 Emergency SOHAM BOLANOS [facility] [id number] [facility] 2022-06-09 06:57:00 2022-06-09 10:27:00 Emergency Soham lCarke [facility] 1.0.114 350.1.13.10 4.2.7.2.686 [id number] [id number] [facility] 2022-06-09 00:00:00 2022-06-09 00:00:00 Orders Only Doctor Unassigned, [place] [facility] 1..114 350.1.13.10 4.2.7.2.686 [id number] [id number] [facility] 2021-11-04 00:00:00 2021-11-04 00:00:00 Transition of Care Ellen Carroll 1..114 350.1.13.10 4.2.7.2.686 [id number] [facility] 2021-10-30 13:39:00 2021-11-01 13:45:00 Inpatient X EMELIA GALLEGO [facility] [id number] [facility] 2021-10-30 13:39:00 2021-11-01 13:45:00 Hospital Encounter Madison Sepulveda David [facility] 1..114 350.1.13.10 4.2.7.2.686 [id number] [id number] [facility] 2021-10-30 00:00:00 2021-10-30 00:00:00 Orders Only Doctor Unassigned, [place] [facility] 1.2.840.114 350.1.13.10 4.2.7.2.686 [id number] [id number] [facility] 2021-05-23 20:42:00 2021-05-24 01:42:00 Emergency Felipe Ortega [facility] 1.2.840.114 350.1.13.10 4.2.7.2.686 [id number] 084 [id number] [facility] 2021-05-23 20:42:00 2021-05-23 20:42:00 Emergency X FELIPE ORTEGA [facility] ERT [id number] [facility] 2021-05-22 18:37:00 2021-05-22 21:40:00 Emergency Gabriella Zarate [facility] 1.2.840.114 350.1.13.10 4.2.7.2.686 [id number] 084 [id number] [facility] 2021-05-22 18:31:00 2021-05-22 18:31:00 Emergency X [facility] E[facility] [id number] [facility] 2021-05-07 11:11:35 2021-05-07 11:11:42 Imm/Inj Visit Nurse, Adc Pob ImmunizDavid Nam [facility] 1.2840.114 350.1.13.10 4.2.7.2.686 [id number] [facility] 2021-05-01 19:09:00 2021-05-01 20:46:00 Emergency Nikhil Blanton [facility] 1.2840.114 350.1.13.10 4.2.7.2.686 [id number] [id number] [facility] 2021-05-01 18:53:00 2021-05-01 18:53:00 Emergency X [facility] E[facility] [id number] [facility] 2021-04-01 20:06:00 2021-04-01 21:56:00 Emergency BlantonNikhil ambrocio [facility] 1.2.840.114 350.1.13.10 4.2.7.2.686 [id number] [id number] [facility] 2021-04-01 20:06:00 2021-04-01 21:56:00 Emergency BlantonNikhil ambrocio [facility] 1.2.840.114 350.1.13.10 4.2.7.2.686 [id number] 084 [id number] 2021-04-01 20:06:00 2021-04-01 20:06:00 Emergency X NIKHIL BLANTON [facility] ERT [id number] [facility] 2021-03-17 20:09:00 2021-03-17 22:19:00 Emergency Blanton, Nikhil [facility] 1.2840.114 350.1.13.10 4.2.7.2.686 [id number] [id number] [facility] 2021-03-17 20:09:00 2021-03-17 22:19:00 Emergency Blanton, Nikhil [facility] 1.2840.114 350.1.13.10 4.2.7.2.686 [id number] [id number] 2021-03-17 19:56:00 2021-03-17 19:56:00 Emergency X [facility] E[facility] [id number] [facility] 2020-11-15 00:00:00 2020-11-15 00:00:00 Letter (Out) Mirna Mar [facility] 1.2840.114 350.1.13.10 4.2.7.2.686 [id number] 019 [id number] [facility] 2020-11-15 00:00:00 2020-11-15 00:00:00 Telephone Pcp, Patient Does Not Have A [facility] 1.2840.114 350.1.13.10 4.2.7.2.686 [id number] 019 [id number] [facility] 2020-11-15 00:00:00 2020-11-15 00:00:00 Telephone Pcp, Patient Does Not Have A [facility] 1.2.840.114 350.1.13.10 4.2.7.2.686 [id number] 019 [id number] 2020-11-15 00:00:00 2020-11-15 00:00:00 Letter (Out) Mirna Mar [facility] 1.2.840.114 350.1.13.10 4.2.7.2.686 [id number] 2020-11-14 21:29:00 2020-11-14 22:55:00 Emergency Darnell Hsu [facility] 1.2.840.114 350.1.13.10 4.2.7.2.686 [id number] [id number] [facility] 2020-11-14 21:29:00 2020-11-14 22:55:00 Emergency X ARACELIS DARNELL [facility] ERT [id number] [facility] 2020-11-14 21:29:00 2020-11-14 22:55:00 Emergency Darnell Hsu [facility] 1.2.840.114 350.1.13.10 4.2.7.2.686 [id number] 084 [id number] 2020-09-30 08:03:00 2020-09-30 10:45:00 Emergency Jessy Siddiqui [facility] 1.2.840.114 350.1.13.10 4.2.7.2.686 [id number] 084 [id number] [facility] 2020-09-30 08:03:00 2020-09-30 10:45:00 Emergency Jessy Siddiqui [facility] 1.2.840.114 350.1.13.10 4.2.7.2.686 [id number] 2020-09-30 07:58:00 2020-09-30 07:58:00 Emergency X [facility] ERT [id number] [facility] 2020-09-30 00:00:00 2020-09-30 00:00:00 Orders Only Doctor Unassigned, [place] [facility] 1.2.840.114 350.1.13.10 4.2.7.2.686 [id number] [id number] [facility] 2020-09-30 00:00:00 2020-09-30 00:00:00 Orders Only Doctor Unassigned, [place] [facility] 1.2.840.114 350.1.13.10 4.2.7.2.686 [id number] [id number] 2020-07-01 21:58:00 2020-07-01 23:54:00 [facility] 1.2.840.114 350.1.13.10 4.2.7.2.686 [id number] 084 [id number] [facility] 2020-07-01 21:58:00 2020-07-01 23:54:00 Emergency Dyana [facility] 1.2.840.114 350.1.13.10 4.2.7.2.686 [id number] 084 [id number] 2020-07-01 21:58:00 2020-07-01 21:58:00 Emergency X FELIPE ORTEGA [facility] ERT [id number] [facility] Results Test Description Test Time Test Comments Results Result Co mments Source [facility] WITH [id number] 03:12:39* Test Item Value Reference Range Interpretation Comme nts WBC (test code = 6690-2) 6.98 See_Comment [Automated messa ge] The system which generated this result transmitted reference range: 4.20 - 10.70 10*3/?L. The reference range was not used to interpret this result as normal/abnormal. RBC (test code = 789-8) 5.27 See_Comment [Automated Huckletreea ge] The system which generated this result transmitted reference range: 4.26 - 5.52 10*6/?L. The reference range was not used to interpret this result as normal/abnormal. HGB (test code = 718-7) 16.0 g/dL 12.2-16.4 HCT (test code = 4544-3) 45.0 % 38.4-49.3 MCV (test code = 787-2) 85.4 fL 81.7-95.6 MCH (test code = 785-6) 30.4 pg 26.1-32.7 MCHC (test code = 786-4) 35.6 g/dL 31.2-35.0 H RDW-SD (test code = 68906-3) 38.1 fL 38.5-51.6 L RDW-CV (test code = 788-0) 12.3 % 12.1-15.4 PLT (test code = 777-3) 238 See_Comment [Automated Huckletreea ge] The system which generated this result transmitted reference range: 150 - 328 10*3/?L. The reference range was not used to interpret this result as normal/abnormal. MPV (test code = 58833-0) 9.8 fL 9.8-13.0 NRBC/100 WBC (test code = 5438826360) 0.0 See_Comment [Automated Biglion ssage] The system which generated this result transmitted reference range: 0.0 - 10.0 /100 WBCs. The reference range was not used to interpret this result as normal/abnormal. NRBC x10^3 (test code = 2320114263) See_Comment [Automated Huckletreea ge] The system which generated this result transmitted reference range: 10*3/?L. The reference range was not used to interpret this result as normal/abnormal. GRAN MAT (NEUT) % (test code = 770-8) 37.8 % IMM GRAN % (test code = 5600295295) 0.30 % LYMPH % (test code = 736-9) 52.7 % MONO % (test code = 5905-5) 7.7 % EOS % (test code = 713-8) 1.1 % BASO % (test code = 706-2) 0.4 % GRAN MAT x10^3(ANC) (test code = 4774047251) 2.63 10*3/uL 1.99-6.95 IMM GRAN x10^3 (test code = 5539883317) 0.00-0.06 LYMPH x10^3 (test code = 731-0) 3.68 10*3/uL 1.09-3.23 H MONO x10^3 (test code = 742-7) 0.54 10*3/uL 0.36-1.02 EOS x10^3 (test code = 711-2) 0.08 10*3/uL 0.06-0.53 BASO x10^3 (test code = 704-7) 0.03 10*3/uL 0.01-0.09 Lab Interpretation (test code = 17379-2) [id number] 17:24:34* Test Item Value Reference Range Interpretation Comme nts TROPONIN I (test code = 8584376495) 0.018 ng/mL <=0.034 KRYSTLE (test code = [...] of biotin. Lab Interpretation (test code = 77863-0) [facility] 17:13:15* Test Item Value Reference Range Interpretation Comme nts MAGNESIUM (test code = 7981380888) 1.9 mg/dL 1.7-2.4 Lab Interpretation (test cod e = 22346-8) [facility] (81316)2023-07-25 17:12:55* Test Item Value Reference Range Interpretation Comme nts NA (test code = 1461957814) 141 mmol/L 135-145 K (test code = 6177499166) 3.8 mmol/L 3.5-5.0 CL (test code = 3036483558) 106 mmol/L 98-108 CO2 TOTAL (test code = 1677902121) 27 mmol/L 23-31 AGAP (test code = 9622664488) 8 2-16 BUN (test code = 8019759716) 14 mg/dL 7-23 GLUCOSE (test code = 7401179331) 124 mg/dL 70-110 H CREATININE (test code = 4270931608) 0.93 mg/dL 0.60-1.25 TOTAL BILI (test code = 9542938675) 0.8 mg/dL 0.1-1.1 CALCIUM (test code = 7432177651) 9.3 mg/dL 8.6-10.6 T PROTEIN (test code = 7393602562) 8.2 g/dL 6.3-8.2 ALBUMIN (test code = 3443104004) 4.4 g/dL 3.5-5.0 ALK PHOS (test code = 3766833780) 49 U/L 34-122 ALTv (test code = 1742-6) 20 U/L 5-50 AST(SGOT) (test code = 2691674634) 28 U/L 13-40 eGFR (test code = 89182-2) 100.0 mL/min/1.73m2 CKD-EPI eGFR (2020). Assuming creatinine has been stable day-to-day for at least three months, the eGFR indicates Category G1 (>= 90 mL/min/1.73 m2) Lab Interpretation (test code = 08498-4) [facility] 17:12:35* Test Item Value Reference Range Interpretation Comme nts LIPASE (test code = 8802712754) 109 U/L 0-220 Lab Interpretation (test cod e = 65356-1) Normal [facility] [id number] 16:59:59* Test Item Value Reference Range Interpretation Comme nts WBC (test code = 6690-2) 5.17 See_Comment [Automated Huckletreea ge] The system which generated this result transmitted reference range: 4.20 - 10.70 10*3/?L. The reference range was not used to interpret this result as normal/abnormal. RBC (test code = 789-8) 5.04 See_Comment [Automated Huckletreea ge] The system which generated this result transmitted reference range: 4.26 - 5.52 10*6/?L. The reference range was not used to interpret this result as normal/abnormal. HGB (test code = 718-7) 15.6 g/dL 12.2-16.4 HCT (test code = 4544-3) 43.6 % 38.4-49.3 MCV (test code = 787-2) 86.5 fL 81.7-95.6 MCH (test code = 785-6) 31.0 pg 26.1-32.7 MCHC (test code = 786-4) 35.8 g/dL 31.2-35.0 H RDW-SD (test code = 25253-3) 39.2 fL 38.5-51.6 RDW-CV (test code = 788-0) 12.5 % 12.1-15.4 PLT (test code = 777-3) 207 See_Comment [Automated Huckletreea ge] The system which generated this result transmitted reference range: 150 - 328 10*3/?L. The reference range was not used to interpret this result as normal/abnormal. MPV (test code = 88393-9) 10.0 fL 9.8-13.0 NRBC/100 WBC (test code = 5005182906) 0.0 See_Comment [Automated Biglion ssage] The system which generated this result transmitted reference range: 0.0 - 10.0 /100 WBCs. The reference range was not used to interpret this result as normal/abnormal. NRBC x10^3 (test code = 2788027400) See_Comment [Automated Huckletreea ge] The system which generated this result transmitted reference range: 10*3/?L. The reference range was not used to interpret this result as normal/abnormal. GRAN MAT (NEUT) % (test code = 770-8) 45.8 % IMM GRAN % (test code = 3978538996) 0.20 % LYMPH % (test code = 736-9) 42.9 % MONO % (test code = 5905-5) 9.9 % EOS % (test code = 713-8) 0.8 % BASO % (test code = 706-2) 0.4 % GRAN MAT x10^3(ANC) (test code = 2897016192) 2.37 10*3/uL 1.99-6.95 IMM GRAN x10^3 (test code = 3655946958) 0.00-0.06 LYMPH x10^3 (test code = 731-0) 2.22 10*3/uL 1.09-3.23 MONO x10^3 (test code = 742-7) 0.51 10*3/uL 0.36-1.02 EOS x10^3 (test code = 711-2) 0.04 10*3/uL 0.06-0.53 L BASO x10^3 (test code = 704-7) 0.01-0.09 Lab Interpretation (test code = 53462-2) [facility]TOTAL CHOLESTEROL, TRIGLYCERIDES, HDL)2023-07-24 21:48:18* Test Item Value Reference Range Interpretation Comme nts CHOL (test code = 9765130021) 220 mg/dL 120-200 H HDL (test code = 9847661091) 31 mg/dL >=40 L HDLC RATIO (test code = 1363938247) 7.1 <=5.0 H TRIG (test code = 8123674065) 134 mg/dL 30-170 LDL CHOL (test code = 99239-6) 162 mg/dL <=160 H VLDL (test code = 3219076534) 27 mg/dL 5-60 Lab Interpretation (test cod e = 82530-5) [facility] [id number] 20:48:07* Test Item Value Reference Range Interpretation Comme nts NA (test code = 4831096593) 141 mmol/L 135-145 K (test code = 5098242829) 3.8 mmol/L 3.5-5.0 CL (test code = 3099201631) 103 mmol/L 98-108 CO2 TOTAL (test code = 8250287947) 29 mmol/L 23-31 AGAP (test code = 8581669908) 9 2-16 BUN (test code = 0665780965) 14 mg/dL 7-23 GLUCOSE (test code = 0468161314) 102 mg/dL 70-110 CREATININE (test code = 7127013018) 0.85 mg/dL 0.60-1.25 TOTAL BILI (test code = 0485984688) 1.2 mg/dL 0.1-1.1 H CALCIUM (test code = 6665093175) 10.0 mg/dL 8.6-10.6 T PROTEIN (test code = 1468199142) 8.9 g/dL 6.3-8.2 H ALBUMIN (test code = 7105247708) 5.0 g/dL 3.5-5.0 ALK PHOS (test code = 7163052082) 52 U/L 34-122 ALTv (test code = 1742-6) 22 U/L 5-50 AST(SGOT) (test code = 7196769699) 45 U/L 13-40 H eGFR (test code = 68682-7) 105.9 mL/min/1.73m2 CKD-EPI eGFR (2020). Assuming creatinine has been stable day-to-day for at least three months, the eGFR indicates Category G1 (>= 90 mL/min/1.73 m2) Lab Interpretation (test code = 86014-8) [facility], [id number] 20:48:07* Test Item Value Reference Range Interpretation Comme nts LIPASE (test code = 3761017878) 134 U/L 0-220 Lab Interpretation (test cod e = 17521-2) Normal [facility] with Csikwcbdavra9701-96-08 20:20:02* Test Item Value Reference Range Interpretation Comme nts WBC (test code = 6690-2) 6.91 See_Comment [Automated [employer]] The system which generated this result transmitted reference range: 4.20 - 10.70 10*3/?L. The reference range was not used to interpret this result as normal/abnormal. RBC (test code = 789-8) 5.49 See_Comment [Automated [employer]] The system which generated this result transmitted reference range: 4.26 - 5.52 10*6/?L. The reference range was not used to interpret this result as normal/abnormal. HGB (test code = 718-7) 16.5 g/dL 12.2-16.4 H HCT (test code = 4544-3) 47.5 % 38.4-49.3 MCV (test code = 787-2) 86.5 fL 81.7-95.6 MCH (test code = 785-6) 30.1 pg 26.1-32.7 MCHC (test code = 786-4) 34.7 g/dL 31.2-35.0 RDW-SD (test code = 84801-3) 40.0 fL 38.5-51.6 RDW-CV (test code = 788-0) 12.7 % 12.1-15.4 PLT (test code = 777-3) 228 See_Comment [Automated [employer]] The system which generated this result transmitted reference range: 150 - 328 10*3/?L. The reference range was not used to interpret this result as normal/abnormal. MPV (test code = 78864-2) 9.5 fL 9.8-13.0 L NRBC/100 WBC (test code = 1061065949) 0.0 See_Comment [Automated [employer]] The system which generated this result transmitted reference range: 0.0 - 10.0 /100 WBCs. The reference range was not used to interpret this result as normal/abnormal. NRBC x10^3 (test code = 2266798534) See_Comment [Automated [employer] ge] The system which generated this result transmitted reference range: 10*3/?L. The reference range was not used to interpret this result as normal/abnormal. GRAN MAT (NEUT) % (test code = 770-8) 46.9 % IMM GRAN % (test code = 1905375637) 0.30 % LYMPH % (test code = 736-9) 42.3 % MONO % (test code = 5905-5) 9.8 % EOS % (test code = 713-8) 0.4 % BASO % (test code = 706-2) 0.3 % GRAN MAT x10^3(ANC) (test code = 9156429852) 3.24 10*3/uL 1.99-6.95 IMM GRAN x10^3 (test code = 0318373051) 0.00-0.06 LYMPH x10^3 (test code = 731-0) 2.92 10*3/uL 1.09-3.23 MONO x10^3 (test code = 742-7) 0.68 10*3/uL 0.36-1.02 EOS x10^3 (test code = 711-2) 0.03 10*3/uL 0.06-0.53 L BASO x10^3 (test code = 704-7) 0.01-0.09 Lab Interpretation (test code = 49402-2) Abnormal [facility] [id number] 08:28:00 [facility] 1970 Sex: M PatientName: NOAH PUTNAM Unit No: [id number] EXAMS: CPT CODE: [id number] CT ABD PELVIS W/CONT 70171 EXAM: - CT ABD PELVIS W/CONT INDICATION: [...] images of the lower chest demonstrate no abnormalities.Hepatobiliary: Simple cyst less than 1 cm in size in the right hepatic lobe is similar. The gallbladder is normal. No biliary dilation. Pancreas: Normal. Spleen: Normal. Adrenals: Normal. Genitourinary: The kidneys are normal. No evidence of hydronephrosis. Evaluation of the bladder is limited, but no obvious bladder abnormality is present. Gastrointestinal: No bowel obstruction or perienteric in flammation. The appendix is normal. Vascular: No evidence of aneurysm or dissection. Lymphatics: No enlarged lymph nodes by CT size criteria. Bones/Soft Tissues: No acute osseous findings. No ventral hernias. Peritoneum/Other: No extraluminal fluid. IMPRESSION: 1. No acute abnormality. [facility] NAME: NOAH PUTNAM PHYS: [place] [address] : 1970 AGE: 52 SEX: M LOC: GOGETMi / ?.?? PHONE #: [phone] EXAM DATE: 07/23/2023 STATUS: REG ER FAX #: [phone] RAD #: D/C DT PAGE 1 Signed Report (CONTINUED) Patient Name: NOAH PUTNAM Unit No: [id number] EXAMS: CPT CODE: [id number] CT ABD PELVIS W/CONT 68655 (Continued) at 0828 Reported and signed by: Kiara Meza MD CC: Jessie Paul MD Technologist: Jovanni GREEN CTDI: DLP: Trnscrpt: 07/23/2023 (0828) t.SDR.CB5 [facility] NAME: NOAH PUTNAM PHYS: [place] [address] : 1970 AGE: 52 SEX: M LOC: GOGETMi / ?.?? PHONE #: [phone] EXAM DATE: 07/23/2023 STATUS: REG ER FAX #: [phone] RAD #: D/C DT PAGE 2 Signed Report Patient Name: NOAH PUTNAM Unit No: [id number] EXAMS: CPT CODE: [id number] CT ABD PELVIS W/CONT 61492 (Continued) Orig Print D/T: S: 07/23/2023 (0831) [facility] NAME: NOAH PUTNAM PHYS: [place] [address] : 1970 AGE: 52 SEX: M LOC: ABDELRAHMAN PHONE #: [phone] EXAM DATE: 07/23/2023 STATUS: REG ER FAX #: [phone] RAD #: D/C DT PAGE 3 Signed ReportURINALYSIS [id number] 06:32:00* Test Item Value Reference Range Interpretation Comme nts UA COLOR (test code = COLU) YELLOW YELLOW UA APPEARANCE (test code = APPU) CLEAR CLEAR UA GLUCOSE DIPSTICK (test co de = DGLUU) NORMAL MG/DL NORMAL UA BILIRUBIN DIPSTICK (test code = BILU) NEGATIVE MG/DL NEGATIVE UA KETONE DIPSTICK (test cod e = KETU) 5 MG/DL NEGATIVE UA SPECIFIC GRAVITY (test co de = SGU) 1.025 1.003-1.030 N UA BLOOD DIPSTICK (test code = MAMIE) 10 Lc/mm3 NEGATIVE A UA PH DIPSTICK (test code = MARYJANE) 6.0 5.0-9.0 N UA PROTEIN DIPSTICK (test co de = PROU) 30 MG/DL NEGATIVE A UA UROBILINIOGEN DIPSTICK (test code = URO) 4 MG/DL NORMAL A UA NITRITE DIPSTICK (test co de = MODESTO) NEGATIVE NEGATIVE UA LEUKOCYTE ESTERASE DIPSTI CK (test code = LEUU) NEGATIVE /mm3 NEGATIVE SOURCE OF URINE: CLEAN CATCHUA [id number] 06:32:00* Test Item Value Reference Range Interpretation Comme nts UA RBC (test code = RBCU) 3-5 RBC/HPF 0-3 A UA WBC (test code = XWBCU) 0-3 WBC/HPF 0-5 UA EPITHELIAL CELLS (test co de = EPIU) RARE EPI/HPF FEW UA BACTERIA (test code = XBACU) FEW NONE UA MUCUS (test code = MUCU) MODERATE #/LPF NONE A SOURCE OF URINE: CLEAN CATCHBASIC METABOLIC [id number] 06:31:00* Test Item Value Reference Range Interpretation Comme nts SODIUM (test code = NA) 141 MMOL/L 137-145 N POTASSIUM (test code = K) 3.6 MMOL/L 3.5-5.1 N CHLORIDE (test code = CL) 106 MMOL/L 98-107 N CARBON DIOXIDE (test code = CO2) 24 MMOL/L 22-30 N GLUCOSE (test code = GLU) 111 MG/DL 74-106 H BLOOD UREA NITROGEN (test code = BUN) 15 MG/DL 9-20 N GLOMERULAR FILTRATION RATE (test code = GFR) > 60 The Glomerular Filtration Rate is a calculated parameterbased on serum Creatinine, patient age and sex. GFR valuesless than 60 mL/min/1.73 square meters are indicative ofChronic Kidney Disease. Values less than 15 mL/min/1.73square meters indicate Kidney failure. The calculation forGFR is based on the CKD-EPI (202) calculation. This formulais race indifferent and is the recommended formula for GFRby the National Kidney Foundation for Adults.The GFR will not calculate if the sex is unknown or if thepatient's age is <18 years. CREATININE (test code = CREAT) 1.20 MG/DL 0.66-1.25 N CALCIUM (test code = CA) 9.5 MG/DL 8.4-10.2 N HEPATIC FUNCTION [id number] 06:31:00* Test Item Value Reference Range Interpretation Comme nts TOTAL PROTEIN (test code = PROT) 9.0 G/DL 6.2-7.6 H Ortho Clinical D iagnostic has made us aware of newinformation regarding the potential interference ofEltrombopag (a bone marrow stimulant used to treatthrombocytonmenia and aplastic anemia) with specific assayson the [employer] of which Total Protein is one of thoseassays performed in our lab.Interference testing performed at [place] determined thatEltrombopag does interfere with Vitros Total Protein asfollowsEltrombopag Interference for Vitros Product Total Protein: Eltrombopag Max Observed Avg. BiasConcentration Concentration Concentration 2.5 mg/dl 6.0 g/dl +0.41 +0.34 3.5 mg/dl 6.0 g/dl +0.50 +0.45 5 mg/dl 6.0 g/dl +0.73 +0.65 2.5 mg/dl 8.0 g/dl +0.44 +0.41 3.5 mg/dl 8.0 g/dl +0.55 +0.52 5 mg/dl 8.0 g/dl +0.86 +0.77 ALBUMIN (test code = ALB) 4.8 G/DL 3.5-5.0 N BILIRUBIN TOTAL (test code = BILT) 0.9 MG/DL 0.2-1.3 N Eltrombopag Inte rference for Vitros Product TBil, BuBc: Assay Eltrombopag Analyte/ Max Observed Avg. Bias Concentration Concentration Concentration TBil 7mg/dl TBil/ 1.2mg/dl +0.23mg.dl +0.20mg/dlBuBc 3.5mg/dl Bu/0.8mg/dl +0.25mg/dl +0.24mg/dlBuBc 7 mg/dl Bu/14.2mg/dl +0.38mg/dl +0.25mg/dlBuBc 5mg/dl Bc/0mg/dl +0.25mg/dl +0.15mg/dlBuBc 3.5mg/dl Bc/2.8mg/dl +0.25mg/dl +0.23mg/dl BILIRUBIN DIRECT (test code = BILD) 0.0 MG/DL 0.0-0.3 N Eltrombopag Inte rference for Vitros Product TBil, BuBc: Assay Eltrombopag Analyte/ Max Observed Avg. Bias Concentration Concentration Concentration TBil 7mg/dl TBil/ 1.2mg/dl +0.23mg.dl +0.20mg/dlBuBc 3.5mg/dl Bu/0.8mg/dl +0.25mg/dl +0.24mg/dlBuBc 7 mg/dl Bu/14.2mg/dl +0.38mg/dl +0.25mg/dlBuBc 5mg/dl Bc/0mg/dl +0.25mg/dl +0.15mg/dlBuBc 3.5mg/dl Bc/2.8mg/dl +0.25mg/dl +0.23mg/dl SGOT/AST (test code = AST) 29 UNITS/L 17-59 N SGPT/ALT (test code = ALT) 23 UNITS/L 0-49 N ALKALINE PHOSPHATASE (test code = ALKP) 57 UNITS/L 38-126 N [id number] 06:31:00* Test Item Value Reference Range Interpretation Comme nts LIPASE (test code = LIP) 94 UNITS/L 23-300 N [id number] 06:31:00* Test Item Value Reference Range Interpretation Comme nts TROPONIN-I (test code = TROPI) 0.019 NG/ML 0.012-0.033 N PROTHROMBIN [id number] 06:07:00* Test Item Value Reference Range Interpretation Comme nts PROTHROMBIN TIME PATIENT (test code = PTP) 12.5 SECONDS 10.1-12.6 N INTERNATIONAL NORMAL RATIO (test code = INR) 1.1 0.86-1.14 N The INR is to be used only for monitoring oral anticoagulanttherap y. INDICATION INR VALUE -------1. Prophylaxis, deep venous thrombosis, including high risk surgery. 2.0 - 3.0 2. Prophylaxis, deep venous thrombosis, hip surgery, treatment for deep venous thrombosis or pulmonary prevention of systemic embolism in patients with valvular heart disease, atrial fibrillation, tissue heart valve, or acute myocardial infarction. 2.0 - 3.0 3. Mechanical prosthesis heart valves, recurrent systemic embolism. 3.0 - 4.5 CBC W/O [id number] 06:00:00* Test Item Value Reference Range Interpretation Comme nts WHITE BLOOD CELL (test code = WBC) 6.3 K/MM3 3.8-9.8 N RED BLOOD CELL (test code = RBC) 5.30 M/MM3 3.95-5.67 N HEMOGLOBIN (test code = HGB) 16.0 G/DL 12.4-16.7 N HEMATOCRIT (test code = HCT) 45.7 % 35.9-49.5 N MEAN CELL VOLUME (test code = MCV) 86 fL 81.7-96.1 N MEAN CELL HGB (test code = MCH) 30.2 pg 27.6-33.2 N MEAN CELL HGB CONCETRATION (test code = MCHC) 35.0 % 32.9-35.5 N RED CELL DISTRIBUTION WIDTH (test code = RDW) 12.9 % 12.1-15.2 N PLATELET COUNT (test code = PLT) 233 K/MM3 129-368 N NEUTROPHIL # (test code = NT#) 2.90 K/mm3 2.0-7.6 N IMMATURE GRANULOCYTE # (test code = IG#) 0.02 x10 3/uL 0-0.03 N LYMPHOCYTE # (test code = LY#) 2.61 K/mm3 1.0-3.8 N MONOCYTE # (test code = MO#) 0.68 K/mm3 0.1-0.8 N EOSINOPHIL # (test code = EO#) 0.04 K/mm3 0.0-0.2 N BASOPHIL # (test code = BA#) 0.02 K/mm3 0.0-0.2 N NUCLEATED RBC # (test code = NRBC#) 0.00 K/mm3 0.0-0.1 N Troponin [id number] 02:46:51* Test Item Value Reference Range Interpretation Comme nts TROPONIN I (test code = 9720474367) 0.017 ng/mL <=0.034 KRYSTLE (test code = [...] of biotin. Lab Interpretation (test code = 15834-9) [facility] 02:35:28* Test Item Value Reference Range Interpretation Comme nts NA (test code = 6758005457) 138 mmol/L 135-145 K (test code = 2956684520) 3.7 mmol/L 3.5-5.0 CL (test code = 4051492942) 106 mmol/L 98-108 CO2 TOTAL (test code = 9647430887) 24 mmol/L 23-31 AGAP (test code = 9383801271) 8 2-16 BUN (test code = 0024845897) 11 mg/dL 7-23 GLUCOSE (test code = 4559193867) 165 mg/dL 70-110 H CREATININE (test code = 1778929088) 0.89 mg/dL 0.60-1.25 TOTAL BILI (test code = 1758382469) 0.2 mg/dL 0.1-1.1 CALCIUM (test code = 9813776379) 9.3 mg/dL 8.6-10.6 T PROTEIN (test code = 3071260677) 7.0 g/dL 6.3-8.2 ALBUMIN (test code = 2244107639) 4.0 g/dL 3.5-5.0 ALK PHOS (test code = 2688821328) 59 U/L 34-122 ALTv (test code = 1742-6) 23 U/L 5-50 AST(SGOT) (test code = 5384644332) 27 U/L 13-40 eGFR (test code = 8402491073) 90.5 mL/min/1.73m2 KRYSTLE (test code = KRYSTLE) Association [...] imaging tests). Lab Interpretation (test code = 27109-0) Abnormal [facility] with [id number] 02:26:10* Test Item Value Reference Range Interpretation Comme nts WBC (test code = 6690-2) 5.78 See_Comment [[employer]ated [employer]] The system which generated this result transmitted reference range: 4.20 - 10.70 10*3/?L. The reference range was not used to interpret this result as normal/abnormal. RBC (test code = 789-8) 4.59 See_Comment [Automated [employer]] The system which generated this result transmitted reference range: 4.26 - 5.52 10*6/?L. The reference range was not used to interpret this result as normal/abnormal. HGB (test code = 718-7) 13.8 g/dL 12.2-16.4 HCT (test code = 4544-3) 39.0 % 38.4-49.3 MCV (test code = 787-2) 85.0 fL 81.7-95.6 MCH (test code = 785-6) 30.1 pg 26.1-32.7 MCHC (test code = 786-4) 35.4 g/dL 31.2-35.0 H RDW-SD (test code = 89368-3) 38.6 fL 38.5-51.6 RDW-CV (test code = 788-0) 12.6 % 12.1-15.4 PLT (test code = 777-3) 200 See_Comment [Automated [employer] ge] The system which generated this result transmitted reference range: 150 - 328 10*3/?L. The reference range was not used to interpret this result as normal/abnormal. MPV (test code = 13304-3) 9.6 fL 9.8-13.0 L NRBC/100 WBC (test code = 5932822968) 0.0 See_Comment [Automated [employer]] The system which generated this result transmitted reference range: 0.0 - 10.0 /100 WBCs. The reference range was not used to interpret this result as normal/abnormal. NRBC x10^3 (test code = 3349303563) See_Comment [Automated mess[employer] ge] The system which generated this result transmitted reference range: 10*3/?L. The reference range was not used to interpret this result as normal/abnormal. GRAN MAT (NEUT) % (test code = 770-8) 36.8 % IMM GRAN % (test code = 6791269150) 0.20 % LYMPH % (test code = 736-9) 54.7 % MONO % (test code = 5905-5) 7.1 % EOS % (test code = 713-8) 0.9 % BASO % (test code = 706-2) 0.3 % GRAN MAT x10^3(ANC) (test code = 8079283851) 2.13 10*3/uL 1.99-6.95 IMM GRAN x10^3 (test code = 6418887681) 0.00-0.06 LYMPH x10^3 (test code = 731-0) 3.16 10*3/uL 1.09-3.23 MONO x10^3 (test code = 742-7) 0.41 10*3/uL 0.36-1.02 EOS x10^3 (test code = 711-2) 0.05 10*3/uL 0.06-0.53 L BASO x10^3 (test code = 704-7) 0.01-0.09 Lab Interpretation (test code = 50261-1) [facility] 10:47:01* Test Item Value Reference Range Interpretation Comme nts NA (test code = 0416115218) 138 mmol/L 135-145 K (test code = 8112831701) 4.5 mmol/L 3.5-5.0 Slight hemolysis CL (test code = 3498349622) 103 mmol/L 98-108 CO2 TOTAL (test code = 3085875958) 23 mmol/L 23-31 AGAP (test code = 8165191685) 12 2-16 BUN (test code = 7922251268) 16 mg/dL 7-23 Slight hemolysis GLUCOSE (test code = 0939224999) 142 mg/dL 70-110 H CREATININE (test code = 7457462285) 0.99 mg/dL 0.60-1.25 TOTAL BILI (test code = 3307634322) 1.2 mg/dL 0.1-1.1 H CALCIUM (test code = 7201445390) 9.6 mg/dL 8.6-10.6 T PROTEIN (test code = 6770938628) 8.1 g/dL 6.3-8.2 ALBUMIN (test code = 5622137429) 4.6 g/dL 3.5-5.0 ALK PHOS (test code = 7425668642) 51 U/L 34-122 Slight hemolysis ALTv (test code = 1742-6) 26 U/L 5-50 AST(SGOT) (test code = 6419168987) 32 U/L 13-40 Slight hemolysis eGFR (test code = 9981378124) 80.0 mL/min/1.73m2 KRYSTLE (test code = KRYSTLE) Association [...] imaging tests). Lab Interpretation (test code = 89306-2) [facility] 10:47:01* Test Item Value Reference Range Interpretation Comme nts LIPASE (test code = 4689493462) 955 U/L 0-220 H Lab Interpretation (test cod e = 48834-9) [facility]normal [facility] [id number] 10:27:34* Test Item Value Reference Range Interpretation Comme nts WBC (test code = 6690-2) 6.60 See_Comment [[employer]] The system which generated this result transmitted reference range: 4.20 - 10.70 10*3/?L. The reference range was not used to interpret this result as normal/abnormal. RBC (test code = 789-8) 5.32 See_Comment [Automated messa ge] The system which generated this result transmitted reference range: 4.26 - 5.52 10*6/?L. The reference range was not used to interpret this result as normal/abnormal. HGB (test code = 718-7) 16.0 g/dL 12.2-16.4 HCT (test code = 4544-3) 46.4 % 38.4-49.3 MCV (test code = 787-2) 87.2 fL 81.7-95.6 MCH (test code = 785-6) 30.1 pg 26.1-32.7 MCHC (test code = 786-4) 34.5 g/dL 31.2-35.0 RDW-SD (test code = 84252-1) 39.4 fL 38.5-51.6 RDW-CV (test code = 788-0) 12.3 % 12.1-15.4 PLT (test code = 777-3) 226 See_Comment [Automated [employer]] The system which generated this result transmitted reference range: 150 - 328 10*3/?L. The reference range was not used to interpret this result as normal/abnormal. MPV (test code = 46885-1) 9.6 fL 9.8-13.0 L NRBC/100 WBC (test code = 5919303528) 0.0 See_Comment [Automated [employer]] The system which generated this result transmitted reference range: 0.0 - 10.0 /100 WBCs. The reference range was not used to interpret this result as normal/abnormal. NRBC x10^3 (test code = 7770910249) See_Comment [Automated [employer]] The system which generated this result transmitted reference range: 10*3/?L. The reference range was not used to interpret this result as normal/abnormal. GRAN MAT (NEUT) % (test code = 770-8) 54.9 % IMM GRAN % (test code = 0777932444) 0.20 % LYMPH % (test code = 736-9) 36.2 % MONO % (test code = 5905-5) 7.9 % EOS % (test code = 713-8) 0.5 % BASO % (test code = 706-2) 0.3 % GRAN MAT x10^3(ANC) (test code = 0370327602) 3.63 10*3/uL 1.99-6.95 IMM GRAN x10^3 (test code = 5656140990) 0.00-0.06 LYMPH x10^3 (test code = 731-0) 2.39 10*3/uL 1.09-3.23 MONO x10^3 (test code = 742-7) 0.52 10*3/uL 0.36-1.02 EOS x10^3 (test code = 711-2) 0.03 10*3/uL 0.06-0.53 L BASO x10^3 (test code = 704-7) 0.01-0.09 Lab Interpretation (test code = 33852-1) Abnormal [facility]ELVIS W/[id number] 00:06:00 [facility] 1970 Sex: M Patient Name: NOAH PUTNAM Unit No: [id number] EXAMS: CPT CODE: [id number] CT ABD PELVIS W/CONT 78622 Reason: diffuse abd pain CT Scan of [...] lobe. GALLBLADDER/BILIARY: No significant findings. PANCREAS: No significantfindings. SPLEEN: No significant findings. ADRENALS: No significant [...] bladder base. Correlation with PSA is recommended. Electronically Signed by Jennifer Bass MD on 1 at 0006 Reported and signed by: Jennifer Bass MD CC: Jessie Gleason DO; [facility] Technologist: Cory Romero CT Trscrpt Dt/ (000)t.SDR.MA50 Orig Print D/T: S: 07/02/2023 (0009) CTDI: DLP[facility] [address] [place] [address] PHYS: MANOLO. - Jessie Gleason [address] : 1970 AGE: 52 SEX: M [place], [place] [address] LOC: D.PER PHONE #: [phone] EXAM DATE: 07/01/2023 STATUS: REG ER FAX #: RAD NO: DCDt: PAGE 1 Signed ReportTROP-I HIGH [id number] 23:55:00* Test Item Value Reference Range Interpretation Comme nts TROP-I HIGH SENSITIVITY (test code = TROPIHS) 5 ng/L < 76 Results above 51 for females and 76 for males are consistent with IFCC Committee recommendations to use the 99th percentile of a normal population as a reference decision-limit. - The use of serial sampling and testing protocol is a recommended practive.- An elevated high sensitiveity troponin level alone is often not sufficient for diagnosis of myocardial infarction.- In order to distinguish acute elevations of high sensitivity troponin from other clinical conditions, the Fourth Caspar Definition of Myocardial Infarction stresses clinical assessment and demonstration of a rise and/or fall in serial troponin results above the upper reference limit.Results of this assay method may be falsely depressed orelevated if patient is taking high doses of Biotin. BASIC METABOLIC [id number] 23:55:00* Test Item Value Reference Range Interpretation Comme nts SODIUM (test code = NA) 136 MMOL/L 133-145 N POTASSIUM (test code = K) 3.3 MMOL/L 3.6-5.2 L CHLORIDE (test code = CL) 100 MMOL/L 100-108 N CARBON DIOXIDE (test code = CO2) 23 MMOL/L 22-32 N GLUCOSE (test code = GLU) 167 MG/DL 65-99 H Results of this assay method may be falsely depressed orelevated if patient is taking sulfasalazine. BLOOD UREA NITROGEN (test code = BUN) 14 MG/DL 6-20 N GLOMERULAR FILTRATION RATE (test code = GFR) 80 56-130 N The Glomerular Filtration Rate is a calculated parameterbased on serum Creatinine, patient age and sex. GFR valuesless than 60 mL/min/1.73 square meters are indicative ofChronic Kidney Disease. Values less than 15 mL/min/1.73square meters indicate Kidney failure. The calculation forGFR is based on the CKD-EPI (202) calculation. This formulais race indifferent and is the recommended formula for GFRby the National Kidney Foundation for Adults.The GFR will not calculate if the sex is unknown or if thepatient's age is <18 years. CREATININE (test code = CREAT) 1.12 MG/DL 0.60-1.00 H CALCIUM (test code = CA) 9.3 MG/DL 8.7-10.5 N HEPATIC FUNCTION [id number] 23:55:00* Test Item Value Reference Range Interpretation Comme nts TOTAL PROTEIN (test code = PROT) 8.2 G/DL 6.4-8.2 N ALBUMIN (test code = ALB) 4.2 G/DL 3.4-5.0 N GLOBULIN (test code = GLOB) 4.0 G/DL 1.5-3.8 H ALBUMIN/GLOBULIN RATIO (test code = A/G) 1.1 1.1-2.2 N BILIRUBIN TOTAL (test code = BILT) 1.0 MG/DL 0.0-1.0 N BILIRUBIN DIRECT (test code = BILD) 0.2 MG/DL 0.0-0.3 N BILIRUBIN INDIRECT (test code = BILIND) 0.8 MG/DL 0.0-0.7 H SGOT/AST (test code = AST) 18 Units/L 15-37 N Results of this assay method may be falsely depressed orelevated if patient is taking sulfasalazine. SGPT/ALT (test code = ALT) 25 Units/L 30-65 L Results of this assay method may be falsely depressed orelevated if patient is taking sulfasalazine. ALKALINE PHOSPHATASE TOTAL (test code = ALKP) 60 Units/L 50-136 N [id number] 23:55:00* Test Item Value Reference Range Interpretation Comme nts LIPASE (test code = LIP) 259 U/L 16-77 H New Reference Ranges of 16-77 U/L please reviewrevised from 73-393 U/L on 06/30/2023 CBC W/AUTO [id number] 23:24:00* Test Item Value Reference Range Interpretation Comme nts WHITE BLOOD CELL (test code = WBC) 9.01 x10 3/uL 4.80-10.80 N RED BLOOD CELL (test code = RBC) 5.38 x10 6/uL 4.7-6.1 N HEMOGLOBIN (test code = HGB) 16.0 G/DL 14.0-17.0 N HEMATOCRIT (test code = HCT) 45.9 % 42-52 N MEAN CELL VOLUME (test code = MCV) 85.3 FL 80-94 N MEAN CELL HGB (test code = MCH) 29.7 PG 27-31 N MEAN CELL HGB CONCENTRATION (test code = MCHC) 34.9 G/DL 33-37 N RED CELL DISTRIBUTION WIDTH (test code = RDW) 12.7 % 11.5-14.5 N PLATELET COUNT (test code = PLT) 232 x10 3/uL 150-450 N MEAN PLATELET VOLUME (test c ode = MPV) 9.3 FL 7.4-10.4 N NEUTROPHIL % (test code = NT%) 51.0 [...] = BA#) 0.02 x10 3/uL 0.0-0.2 N [id number] 12:29:00* Test Item Value Reference Range Interpretation Comme [facility] LIPASE (test code = LIP) 73 Units/L 73-393 N [id number] 17:24:56* Test Item Value Reference Range Interpretation Comme [facility] LIPASE (test code = 4812227603) 283 U/L 0-220 H Lab Interpretation (test cod e = 28532-9) Abnormal [facility] METABOLIC PANEL (NA, K, CL, CO2, GLUCOSE, BUN, CREATININE, CA)2023-04-22 17:24:35* Test Item Value Reference Range Interpretation Comme [facility] NA (test code = 2235662407) 139 mmol/L 135-145 K (test code = 2145007625) 4.0 mmol/L 3.5-5.0 CL (test code = 3750616315) 106 mmol/L 98-108 CO2 TOTAL (test code = 6429364291) 25 mmol/L 23-31 AGAP (test code = 2943855305) 8 2-16 BUN (test code = 7689315712) 21 mg/dL 7-23 GLUCOSE (test code = 0654329033) 110 mg/dL 70-110 CREATININE (test code = 5805028274) 1.06 mg/dL 0.60-1.25 CALCIUM (test code = 7829511411) 8.1 mg/dL 8.6-10.6 L eGFR (test code = 2713453253) 74.0 mL/min/1.73m2 KRYSTLE (test code = KRYSTLE) Association [...] imaging tests). Lab Interpretation (test code = 62636-2) [id number] 13:57:28* Test Item Value Reference Range Interpretation Comme nts CK (test code = 5914518697) 635 U/L 33-194 H Lab Interpretation (test cod e = 88015-2) [facility] (NA, K, CL, CO2, GLUCOSE, BUN, CREATININE, CA)2023-04-22 13:23:02* Test Item Value Reference Range Interpretation Comme nts NA (test code = 2079344967) 141 mmol/L 135-145 K (test code = 0807587506) 4.0 mmol/L 3.5-5.0 CL (test code = 3246420062) 107 mmol/L 98-108 CO2 TOTAL (test code = 7934674528) 27 mmol/L 23-31 AGAP (test code = 6359999639) 7 2-16 BUN (test code = 1187741312) 22 mg/dL 7-23 GLUCOSE (test code = 5637988591) 94 mg/dL 70-110 CREATININE (test code = 1217883892) 1.26 mg/dL 0.60-1.25 H CALCIUM (test code = 9848171957) 8.3 mg/dL 8.6-10.6 L eGFR (test code = 8015948797) 60.6 mL/min/1.73m2 KRYSTLE (test code = KRYSTLE) Association [...] imaging tests). Lab Interpretation (test code = 99100-8) [facility]22:41* Test Item Value Reference Range Interpretation Comme nts LIPASE (test code = 9959644263) 897 U/L 0-220 H Lab Interpretation (test cod e = 72456-1) [facility]OLIC PAN[facility] (24659)2023-04-22 09:43:42* Test Item Value Reference Range Interpretation Comme nts NA (test code = 6706550227) 140 mmol/L 135-145 K (test code = 9502161063) 3.7 mmol/L 3.5-5.0 CL (test code = 2615186564) 103 mmol/L 98-108 CO2 TOTAL (test code = 0462536455) 24 mmol/L 23-31 AGAP (test code = 1168262348) 13 2-16 BUN (test code = 0539822388) 24 mg/dL 7-23 H GLUCOSE (test code = 9727233192) 114 mg/dL 70-110 H CREATININE (test code = 8587226022) 1.42 mg/dL 0.60-1.25 H TOTAL BILI (test code = 1264212608) 0.9 mg/dL 0.1-1.1 CALCIUM (test code = 9430489171) 9.5 mg/dL 8.6-10.6 T PROTEIN (test code = 4560050660) 9.2 g/dL 6.3-8.2 H ALBUMIN (test code = 7394760858) 4.9 g/dL 3.5-5.0 ALK PHOS (test code = 0123958468) 66 U/L 34-122 ALTv (test code = 1742-6) 25 U/L 5-50 AST(SGOT) (test code = 9154989061) 37 U/L 13-40 eGFR (test code = 2961035164) 52.8 mL/min/1.73m2 KRYSTLE (test code = KRYSTLE) Association [...] imaging tests). Lab Interpretation (test code = 52235-9) Abnormal [facility] WITH [id number] 09:33:37* Test Item Value Reference Range Interpretation Comme nts WBC (test code = 6690-2) 8.53 See_Comment [Automated Mobile [employer]] The system which generated this result transmitted reference range: 4.20 - 10.70 10*3/?L. The reference range was not used to interpret this result as normal/abnormal. RBC (test code = 789-8) 5.60 See_Comment H [Automated Mobile [employer]] The system which generated this result transmitted reference range: 4.26 - 5.52 10*6/?L. The reference range was not used to interpret this result as normal/abnormal. HGB (test code = 718-7) 17.2 g/dL 12.2-16.4 H HCT (test code = 4544-3) 48.0 % 38.4-49.3 MCV (test code = 787-2) 85.7 fL 81.7-95.6 MCH (test code = 785-6) 30.7 pg 26.1-32.7 MCHC (test code = 786-4) 35.8 g/dL 31.2-35.0 H RDW-SD (test code = 16499-3) 40.1 fL 38.5-51.6 RDW-CV (test code = 788-0) 13.0 % 12.1-15.4 PLT (test code = 777-3) 267 See_Comment [Automated messa ge] The system which generated this result transmitted reference range: 150 - 328 10*3/?L. The reference range was not used to interpret this result as normal/abnormal. MPV (test code = 93805-6) 9.6 fL 9.8-13.0 L NRBC/100 WBC (test code = 5842971714) 0.0 See_Comment [Automated Biglion ssage] The system which generated this result transmitted reference range: 0.0 - 10.0 /100 WBCs. The reference range was not used to interpret this result as normal/abnormal. NRBC x10^3 (test code = 9949816425) See_Comment [Automated messa ge] The system which generated this result transmitted reference range: 10*3/?L. The reference range was not used to interpret this result as normal/abnormal. GRAN MAT (NEUT) % (test code = 770-8) 44.5 % IMM GRAN % (test code = 3894609804) 0.20 % LYMPH % (test code = 736-9) 43.4 % MONO % (test code = 5905-5) 10.7 % EOS % (test code = 713-8) 0.8 % BASO % (test code = 706-2) 0.4 % GRAN MAT x10^3(ANC) (test code = 6885844524) 3.80 10*3/uL 1.99-6.95 IMM GRAN x10^3 (test code = 2386145950) 0.00-0.06 LYMPH x10^3 (test code = 731-0) 3.70 10*3/uL 1.09-3.23 H MONO x10^3 (test code = 742-7) 0.91 10*3/uL 0.36-1.02 EOS x10^3 (test code = 711-2) 0.07 10*3/uL 0.06-0.53 BASO x10^3 (test code = 704-7) 0.03 10*3/uL 0.01-0.09 Lab Interpretation (test code = 81386-5) Abnormal [facility] [id number] 13:23:31* Test Item Value Reference Range Interpretation Comme nts TROPONIN I (test code = 3007489904) 0.020 ng/mL <=0.034 KRYSTLE (test code = KRYSTLE) [...] of biotin. Lab Interpretation (test code = 72099-9) Normal [facility] [id number] 13:23:31* Test Item Value Reference Range Interpretation Comme nts TROPONIN I (test code = 2703261381) 0.020 ng/mL <=0.034 KRYSTLE (test code = KRYSTLE) [...] of biotin. Lab Interpretation (test code = 19768-0) Normal [facility]. METABOLIC PANEL (84848)2023-04-16 12:58:04* Test Item Value Reference Range Interpretation Comme nts NA (test code = 3377965481) 142 mmol/L 135-145 K (test code = 6069186592) 4.0 mmol/L 3.5-5.0 CL (test code = 5612530870) 105 mmol/L 98-108 CO2 TOTAL (test code = 2077118196) 28 mmol/L 23-31 AGAP (test code = 7660810900) 9 2-16 BUN (test code = 5506404075) 11 mg/dL 7-23 GLUCOSE (test code = 2205367190) 115 mg/dL 70-110 H CREATININE (test code = 2489203776) 0.85 mg/dL 0.60-1.25 TOTAL BILI (test code = 9674958339) 0.4 mg/dL 0.1-1.1 CALCIUM (test code = 7377605659) 9.2 mg/dL 8.6-10.6 T PROTEIN (test code = 1653928788) 7.6 g/dL 6.3-8.2 ALBUMIN (test code = 3228865756) 4.4 g/dL 3.5-5.0 ALK PHOS (test code = 7990569860) 52 U/L 34-122 ALTv (test code = 1742-6) 23 U/L 5-50 AST(SGOT) (test code = 8432920069) 33 U/L 13-40 eGFR (test code = 6028856224) 95.4 mL/min/1.73m2 KRYSTLE (test code = KRYSTLE) Association [...] imaging tests). Lab Interpretation (test code = 32044-5) [facility] 12:58:04* Test Item Value Reference Range Interpretation Comme nts LIPASE (test code = 8289568955) 492 U/L 0-220 H Lab Interpretation (test cod e = 76772-1) [facility] (91977)2023-04-16 12:58:04* Test Item Value Reference Range Interpretation Comme nts NA (test code = 1389888697) 142 mmol/L 135-145 K (test code = 3497112699) 4.0 mmol/L 3.5-5.0 CL (test code = 9020729692) 105 mmol/L 98-108 CO2 TOTAL (test code = 2613346012) 28 mmol/L 23-31 AGAP (test code = 6239521146) 9 2-16 BUN (test code = 7244366176) 11 mg/dL 7-23 GLUCOSE (test code = 1007341575) 115 mg/dL 70-110 H CREATININE (test code = 0593937305) 0.85 mg/dL 0.60-1.25 TOTAL BILI (test code = 2132879268) 0.4 mg/dL 0.1-1.1 CALCIUM (test code = 4144865589) 9.2 mg/dL 8.6-10.6 T PROTEIN (test code = 5671720888) 7.6 g/dL 6.3-8.2 ALBUMIN (test code = 0246487274) 4.4 g/dL 3.5-5.0 ALK PHOS (test code = 9628234573) 52 U/L 34-122 ALTv (test code = 1742-6) 23 U/L 5-50 AST(SGOT) (test code = 3334810154) 33 U/L 13-40 eGFR (test code = 1611138542) 95.4 mL/min/1.73m2 KRYSTLE (test code = KRYSTLE) Association [...] imaging tests). Lab Interpretation (test code = 15113-8) [facility] 12:58:04* Test Item Value Reference Range Interpretation Comme nts LIPASE (test code = 8119413369) 492 U/L 0-220 H Lab Interpretation (test cod e = 97274-7) [facility] [id number] 12:50:01* Test Item Value Reference Range Interpretation Comme nts WBC (test code = 6690-2) 6.75 See_Comment [Automated Mobile [employer]] The system which generated this result transmitted reference range: 4.20 - 10.70 10*3/?L. The reference range was not used to interpret this result as normal/abnormal. RBC (test code = 789-8) 5.08 See_Comment [Automated messa ge] The system which generated this result transmitted reference range: 4.26 - 5.52 10*6/?L. The reference range was not used to interpret this result as normal/abnormal. HGB (test code = 718-7) 15.2 g/dL 12.2-16.4 HCT (test code = 4544-3) 43.6 % 38.4-49.3 MCV (test code = 787-2) 85.8 fL 81.7-95.6 MCH (test code = 785-6) 29.9 pg 26.1-32.7 MCHC (test code = 786-4) 34.9 g/dL 31.2-35.0 RDW-SD (test code = 94709-7) 41.4 fL 38.5-51.6 RDW-CV (test code = 788-0) 13.2 % 12.1-15.4 PLT (test code = 777-3) 219 See_Comment [Automated messa ge] The system which generated this result transmitted reference range: 150 - 328 10*3/?L. The reference range was not used to interpret this result as normal/abnormal. MPV (test code = 59759-1) 9.5 fL 9.8-13.0 L NRBC/100 WBC (test code = 6154815022) 0.0 See_Comment [Automated Biglion ssage] The system which generated this result transmitted reference range: 0.0 - 10.0 /100 WBCs. The reference range was not used to interpret this result as normal/abnormal. NRBC x10^3 (test code = 7130595772) See_Comment [Automated messa ge] The system which generated this result transmitted reference range: 10*3/?L. The reference range was not used to interpret this result as normal/abnormal. GRAN MAT (NEUT) % (test code = 770-8) 46.9 % IMM GRAN % (test code = 3798315304) 0.10 % LYMPH % (test code = 736-9) 43.4 % MONO % (test code = 5905-5) 8.4 % EOS % (test code = 713-8) 0.9 % BASO % (test code = 706-2) 0.3 % GRAN MAT x10^3(ANC) (test code = 5350469593) 3.16 10*3/uL 1.99-6.95 IMM GRAN x10^3 (test code = 1580144472) 0.00-0.06 LYMPH x10^3 (test code = 731-0) 2.93 10*3/uL 1.09-3.23 MONO x10^3 (test code = 742-7) 0.57 10*3/uL 0.36-1.02 EOS x10^3 (test code = 711-2) 0.06 10*3/uL 0.06-0.53 BASO x10^3 (test code = 704-7) 0.01-0.09 Lab Interpretation (test code = 76528-9) Abnormal [facility] WITH [id number] 12:50:01* Test Item Value Reference Range Interpretation Comme nts WBC (test code = 6690-2) 6.75 See_Comment [Automated Huckletreea ge] The system which generated this result transmitted reference range: 4.20 - 10.70 10*3/?L. The reference range was not used to interpret this result as normal/abnormal. RBC (test code = 789-8) 5.08 See_Comment [Automated Huckletreea ge] The system which generated this result transmitted reference range: 4.26 - 5.52 10*6/?L. The reference range was not used to interpret this result as normal/abnormal. HGB (test code = 718-7) 15.2 g/dL 12.2-16.4 HCT (test code = 4544-3) 43.6 % 38.4-49.3 MCV (test code = 787-2) 85.8 fL 81.7-95.6 MCH (test code = 785-6) 29.9 pg 26.1-32.7 MCHC (test code = 786-4) 34.9 g/dL 31.2-35.0 RDW-SD (test code = 32152-5) 41.4 fL 38.5-51.6 RDW-CV (test code = 788-0) 13.2 % 12.1-15.4 PLT (test code = 777-3) 219 See_Comment [Automated messa ge] The system which generated this result transmitted reference range: 150 - 328 10*3/?L. The reference range was not used to interpret this result as normal/abnormal. MPV (test code = 91486-7) 9.5 fL 9.8-13.0 L NRBC/100 WBC (test code = 8047440794) 0.0 See_Comment [Automated me ssage] The system which generated this result transmitted reference range: 0.0 - 10.0 /100 WBCs. The reference range was not used to interpret this result as normal/abnormal. NRBC x10^3 (test code = 9174683800) See_Comment [Automated messa ge] The system which generated this result transmitted reference range: 10*3/?L. The reference range was not used to interpret this result as normal/abnormal. GRAN MAT (NEUT) % (test code = 770-8) 46.9 % IMM GRAN % (test code = 6501250735) 0.10 % LYMPH % (test code = 736-9) 43.4 % MONO % (test code = 5905-5) 8.4 % EOS % (test code = 713-8) 0.9 % BASO % (test code = 706-2) 0.3 % GRAN MAT x10^3(ANC) (test code = 2055043291) 3.16 10*3/uL 1.99-6.95 IMM GRAN x10^3 (test code = 7210130654) 0.00-0.06 LYMPH x10^3 (test code = 731-0) 2.93 10*3/uL 1.09-3.23 MONO x10^3 (test code = 742-7) 0.57 10*3/uL 0.36-1.02 EOS x10^3 (test code = 711-2) 0.06 10*3/uL 0.06-0.53 BASO x10^3 (test code = 704-7) 0.01-0.09 Lab Interpretation (test code = 27599-5) Abnormal [facility] GLUCOSE (AUTOMATED)2023-02-13 21:02:35* Test Item Value Reference Range Interpretation Comme nts POCT GLU (test code = 5813423652) 118 mg/dL 70-110 H Lab Interpretation (test cod e = 91425-0) Abnormal [facility] WITH [id number] 05:51:48* Test Item Value Reference Range Interpretation Comme nts WBC (test code = 6690-2) 7.64 See_Comment [Automated messa ge] The system which generated this result transmitted reference range: 4.20 - 10.70 10*3/?L. The reference range was not used to interpret this result as normal/abnormal. RBC (test code = 789-8) 5.07 See_Comment [Automated messa ge] The system which generated this result transmitted reference range: 4.26 - 5.52 10*6/?L. The reference range was not used to interpret this result as normal/abnormal. HGB (test code = 718-7) 14.9 g/dL 12.2-16.4 HCT (test code = 4544-3) 43.3 % 38.4-49.3 MCV (test code = 787-2) 85.4 fL 81.7-95.6 MCH (test code = 785-6) 29.4 pg 26.1-32.7 MCHC (test code = 786-4) 34.4 g/dL 31.2-35.0 RDW-SD (test code = 98280-0) 38.5 fL 38.5-51.6 RDW-CV (test code = 788-0) 12.5 % 12.1-15.4 PLT (test code = 777-3) 216 See_Comment [Automated messa ge] The system which generated this result transmitted reference range: 150 - 328 10*3/?L. The reference range was not used to interpret this result as normal/abnormal. MPV (test code = 68714-7) 10.0 fL 9.8-13.0 NRBC/100 WBC (test code = 6622353847) 0.0 See_Comment [Automated Biglion ssage] The system which generated this result transmitted reference range: 0.0 - 10.0 /100 WBCs. The reference range was not used to interpret this result as normal/abnormal. NRBC x10^3 (test code = 1214034937) See_Comment [Automated messa ge] The system which generated this result transmitted reference range: 10*3/?L. The reference range was not used to interpret this result as normal/abnormal. SEG % (test code = 76080-7) 36 % 33-76 LYMPH % (test code = 28838-2) 48 % 14-54 MONO % (test code = 62864-9) 13 % 0-4 H EOS % (test code = 87747-6) 3 % 0-3 ANC (test code = 753-4) 2.75 10*3/uL 1.99-6.95 Lab Interpretation (test code = 04469-6) Abnormal [facility]. METABOLIC PANEL (31254)2022-12-09 05:24:19* Test Item Value Reference Range Interpretation Comme nts NA (test code = 2374399126) 139 mmol/L 135-145 K (test code = 0394618290) 3.8 mmol/L 3.5-5.0 CL (test code = 3232424900) 105 mmol/L 98-108 CO2 TOTAL (test code = 9703519718) 24 mmol/L 23-31 AGAP (test code = 3396188487) 10 2-16 BUN (test code = 0421093206) 11 mg/dL 7-23 GLUCOSE (test code = 2557642419) 115 mg/dL 70-110 H CREATININE (test code = 3414868351) 0.93 mg/dL 0.60-1.25 TOTAL BILI (test code = 8339745289) 0.8 mg/dL 0.1-1.1 CALCIUM (test code = 2658083752) 9.3 mg/dL 8.6-10.6 T PROTEIN (test code = 5231291746) 8.0 g/dL 6.3-8.2 ALBUMIN (test code = 9848929326) 4.5 g/dL 3.5-5.0 ALK PHOS (test code = 9590881631) 50 U/L 34-122 ALTv (test code = 1742-6) 22 U/L 5-50 AST(SGOT) (test code = 1086473964) 36 U/L 13-40 eGFR (test code = 3558759425) 86.0 mL/min/1.73m2 KRYSTLE (test code = KRYSTLE) Association [...] imaging tests). Lab Interpretation (test code = 35056-9) [facility] 05:24:18* Test Item Value Reference Range Interpretation Comme nts LIPASE (test code = 9979216818) 271 U/L 0-220 H Lab Interpretation (test cod e = 77210-9) [facility] [id number] 22:09:52* Test Item Value Reference Range Interpretation Comme nts WBC (test code = 6690-2) See_Comment [Automated [employer]] The system which generated this result transmitted reference range: 4.20 - 10.70 10*3/?L. The reference range was not used to interpret this result as normal/abnormal. RBC (test code = 789-8) See_Comment [Automated [employer]] The system which generated this result transmitted reference range: 4.26 - 5.52 10*6/?L. The reference range was not used to interpret this result as normal/abnormal. HGB (test code = 718-7) 13.9 g/dL 12.2-16.4 HCT (test code = 4544-3) 39.2 % 38.4-49.3 MCV (test code = 787-2) 84.3 fL 81.7-95.6 MCH (test code = 785-6) 29.9 pg 26.1-32.7 MCHC (test code = 786-4) 35.5 g/dL 31.2-35.0 H RDW-SD (test code = 02186-0) 39.2 fL 38.5-51.6 RDW-CV (test code = 788-0) 12.9 % 12.1-15.4 PLT (test code = 777-3) See_Comment [Automated messa ge] The system which generated this result transmitted reference range: 150 - 328 10*3/?L. The reference range was not used to interpret this result as normal/abnormal. MPV (test code = 82714-5) 9.0 fL 9.8-13.0 L NRBC/100 WBC (test code = 8235913471) See_Comment [Automated Biglion ssage] The system which generated this result transmitted reference range: 0.0 - 10.0 /100 WBCs. The reference range was not used to interpret this result as normal/abnormal. NRBC x10^3 (test code = 0745006251) See_Comment [Automated messa ge] The system which generated this result transmitted reference range: 10*3/?L. The reference range was not used to interpret this result as normal/abnormal. GRAN MAT (NEUT) % (test code = 770-8) 35.3 % IMM GRAN % (test code = 2582591229) 0.00 % LYMPH % (test code = 736-9) 56.0 % MONO % (test code = 5905-5) 7.9 % EOS % (test code = 713-8) 0.4 % BASO % (test code = 706-2) 0.4 % GRAN MAT x10^3(ANC) (test code = 3627581985) 1.87 10*3/uL 1.99-6.95 L IMM GRAN x10^3 (test code = 5751877018) 0.00-0.06 LYMPH x10^3 (test code = 731-0) 2.97 10*3/uL 1.09-3.23 MONO x10^3 (test code = 742-7) 0.42 10*3/uL 0.36-1.02 EOS x10^3 (test code = 711-2) 0.06-0.53 L BASO x10^3 (test code = 704-7) 0.01-0.09 Lab Interpretation (test code = 95861-2) Abnormal [facility] METABOLIC PANEL (NA, K, CL, CO2, GLUCOSE, BUN, CREATININE, CA)2022-10-12 00:25:13* Test Item Value Reference Range Interpretation Comme nts NA (test code = 0464524485) 136 mmol/L 135-145 K (test code = 9876422861) 3.5 mmol/L 3.5-5.0 CL (test code = 7206442689) 103 mmol/L 98-108 CO2 TOTAL (test code = 2532731524) 26 mmol/L 23-31 AGAP (test code = 2432663094) 2-16 BUN (test code = 1200686765) 14 mg/dL 7-23 GLUCOSE (test code = 0768482105) 157 mg/dL 70-110 H CREATININE (test code = 9592339726) 0.80 mg/dL 0.60-1.25 CALCIUM (test code = 9617192870) 8.4 mg/dL 8.6-10.6 L eGFR (test code = 5211077570) mL/min/1.73m2 KRYSTLE (test code = KRYSTLE) Association [...] imaging tests). Lab Interpretation (test code = 42460-4) [facility]07643[facility] (ALB,T.PRO,BILI T,BU/BC,ALT,AST,ALK PHOS)2022-10-12 00:25:13* Test Item Value Reference Range Interpretation Comme nts TOTAL BILI (test code = 6684131403) 1.2 mg/dL 0.1-1.1 H BILI UNCON (test code = 0668437700) 1.0 mg/dL 0.1-1.1 BILI CONJ (test code = 9163137398) 0.0 mg/dL 0.0-0.3 T PROTEIN (test code = 4173688570) 7.1 g/dL 6.3-8.2 ALBUMIN (test code = 4466344457) 4.0 g/dL 3.5-5.0 ALK PHOS (test code = 9528987742) 59 U/L 34-122 ALTv (test code = 1742-6) 38 U/L 5-50 AST(SGOT) (test code = 5341440927) 61 U/L 13-40 H Lab Interpretation (test cod e = 89665-6) [facility] Only)2022-10-11 21:35:47* Test Item Value Reference Range Interpretation Comme nts ABO & RH (test code = 20) O Positive Performed at [facility] Laboratory Services - [facility] Blood [address] Free: [phone] No. [id number] [facility] - ONCE Smsjyly6781-35-11 21:25:51* Test Item Value Reference Range Interpretation Comme nts ABO & RH (test code = 20) O POSITIVE Performed at [facility] Laboratory Services - [facility] Blood [place] [address]Toll Free: [phone] No. [id number] IAT (test code = 1185) Negative Performed at [facility] Laboratory Services - [address] Free: [phone] No. [id number] [facility] WITH [id number] 20:47:43* Test Item Value Reference Range Interpretation Comme nts WBC (test code = 6690-2) See_Comment [Automated messa ge] The system which generated this result transmitted reference range: 4.20 - 10.70 10*3/?L. The reference range was not used to interpret this result as normal/abnormal. RBC (test code = 789-8) See_Comment [Automated messa ge] The system which generated this result transmitted reference range: 4.26 - 5.52 10*6/?L. The reference range was not used to interpret this result as normal/abnormal. HGB (test code = 718-7) 14.3 g/dL 12.2-16.4 HCT (test code = 4544-3) 40.7 % 38.4-49.3 MCV (test code = 787-2) 85.5 fL 81.7-95.6 MCH (test code = 785-6) 30.0 pg 26.1-32.7 MCHC (test code = 786-4) 35.1 g/dL 31.2-35.0 H RDW-SD (test code = 89647-6) 41.1 fL 38.5-51.6 RDW-CV (test code = 788-0) 13.2 % 12.1-15.4 PLT (test code = 777-3) See_Comment [Automated messa ge] The system which generated this result transmitted reference range: 150 - 328 10*3/?L. The reference range was not used to interpret this result as normal/abnormal. MPV (test code = 64503-0) 9.5 fL 9.8-13.0 L NRBC/100 WBC (test code = 1780575037) See_Comment [Automated me ssage] The system which generated this result transmitted reference range: 0.0 - 10.0 /100 WBCs. The reference range was not used to interpret this result as normal/abnormal. NRBC x10^3 (test code = 5842142298) See_Comment [Automated messa ge] The system which generated this result transmitted reference range: 10*3/?L. The reference range was not used to interpret this result as normal/abnormal. GRAN MAT (NEUT) % (test code = 770-8) 38.2 % IMM GRAN % (test code = 9631303745) 0.00 % LYMPH % (test code = 736-9) 53.7 % MONO % (test code = 5905-5) 7.5 % EOS % (test code = 713-8) 0.3 % BASO % (test code = 706-2) 0.3 % GRAN MAT x10^3(ANC) (test code = 6132808696) 2.46 10*3/uL 1.99-6.95 IMM GRAN x10^3 (test code = 5824513525) 0.00-0.06 LYMPH x10^3 (test code = 731-0) 3.46 10*3/uL 1.09-3.23 H MONO x10^3 (test code = 742-7) 0.48 10*3/uL 0.36-1.02 EOS x10^3 (test code = 711-2) 0.06-0.53 L BASO x10^3 (test code = 704-7) 0.01-0.09 Lab Interpretation (test code = 96862-0) [facility] (96837)(TOTAL CHOLESTEROL, TRIGLYCERIDES, HDL)2022-10-11 20:32:44* Test Item Value Reference Range Interpretation Comme nts CHOL (test code = 8884195548) 195 mg/dL 120-200 HDL (test code = 0597831356) 36 mg/dL See_Comment L [Automated messa ge] The system which generated this result transmitted reference range: >=40. The reference range was not used to interpret this result as normal/abnormal. HDLC RATIO (test code = 6397465788) See_Comment H [Automated messa ge] The system which generated this result transmitted reference range: <=5.0. The reference range was not used to interpret this result as normal/abnormal. TRIG (test code = 0949397151) 84 mg/dL 30-170 LDL CHOL (test code = 52982-4) 142 mg/dL See_Comment [Automated messa ge] The system which generated this result transmitted reference range: <=160. The reference range was not used to interpret this result as normal/abnormal. VLDL (test code = 0693027944) 17 mg/dL 5-60 Lab Interpretation (test code = 22981-6) [facility] [id number] 14:23:55* Test Item Value Reference Range Interpretation Comme [facility] NT-proBNP (test code = 9615105468) See_Comment [Automated message] The system which generated this result transmitted reference range: <=125. The reference range was not used to interpret this result as normal/abnormal. KRYSTLE (test code = KRYSTLE) Biotin has been reported to cause a negative bias, interpret results relative to patient's use of biotin. Lab Interpretation (test code = 65928-1) [facility] [id number] 14:23:25* Test Item Value Reference Range Interpretation Comme nts APTT Patient (test code = 3173-2) See_Comment [Automated message] The system which generated this result transmitted reference range: 23 - 38 Seconds. The reference range was not used to interpret this result as normal/abnormal. KRYSTLE (test code = KRYSTLE) The [facility] patient population mean normal value for aPTT is 30 seconds. Lab Interpretation (test code = 31432-9) [facility] 14:23:05* Test Item Value Reference Range Interpretation Comme [facility] LIPASE (test code = 2721544694) 502 U/L 0-220 H Lab Interpretation (test cod e = 19621-0) [facility] (83311)2022-10-11 14:23:05* Test Item Value Reference Range Interpretation Comme nts NA (test code = 1302783471) 139 mmol/L 135-145 K (test code = 2283173838) 5.0 mmol/L 3.5-5.0 Slight hemolysis CL (test code = 2838764351) 103 mmol/L 98-108 CO2 TOTAL (test code = 8183597095) 28 mmol/L 23-31 AGAP (test code = 2178263542) 2-16 BUN (test code = 3699066284) 17 mg/dL 7-23 Slight hemolysis GLUCOSE (test code = 6337097911) 103 mg/dL 70-110 CREATININE (test code = 3022141403) 0.80 mg/dL 0.60-1.25 TOTAL BILI (test code = 1149800285) 1.6 mg/dL 0.1-1.1 H CALCIUM (test code = 9564793723) 9.0 mg/dL 8.6-10.6 T PROTEIN (test code = 4155684357) 8.4 g/dL 6.3-8.2 H ALBUMIN (test code = 8399768681) 4.8 g/dL 3.5-5.0 ALK PHOS (test code = 8882835998) 57 U/L 34-122 Slight hemolysis ALTv (test code = 1742-6) 49 U/L 5-50 AST(SGOT) (test code = 6400898874) 77 U/L 13-40 H Slight hemolysis eGFR (test code = 1793022760) mL/min/1.73m2 KRYSTLE (test code = KRYSTLE) Association [...] imaging tests). Lab Interpretation (test code = 33317-0) [facility] [id number] 14:23:05* Test Item Value Reference Range Interpretation Comments TROPONIN I (test code = 1422168382) 0.018 ng/mL See_Comment [Automated message] The system which generated this result transmitted reference range: <=0.034. The reference range was not used to interpret this result as normal/abnormal. KRYSTLE (test code = KRYSTLE) Reference (Normal) [...] of biotin. Lab Interpretation (test code = 94494-8) [facility] / [id number] 14:20:24* Test Item Value Reference Range Interpretation Comme nts PROTIME PATIENT (test code = 5964-2) See_Comment [Automated Mobile [employer]ord] The system which generated this result transmitted reference range: 12.0 - 14.7 Seconds. The reference range was not used to interpret this result as normal/abnormal. INR (test code = 6301-6) Normal INR <1.1; Warfarin Therapeutic range 2.0 to 3.0 or 2.5 to 3.5, depending upon the indications. Lab Interpretation (test code = 71397-2) Normal [facility] WITH [id number] 13:55:05* Test Item Value Reference Range Interpretation Comme nts WBC (test code = 6690-2) See_Comment [Automated Huckletreea ge] The system which generated this result transmitted reference range: 4.20 - 10.70 10*3/?L. The reference range was not used to interpret this result as normal/abnormal. RBC (test code = 789-8) See_Comment [Automated Huckletreea ge] The system which generated this result transmitted reference range: 4.26 - 5.52 10*6/?L. The reference range was not used to interpret this result as normal/abnormal. HGB (test code = 718-7) 15.7 g/dL 12.2-16.4 HCT (test code = 4544-3) 45.0 % 38.4-49.3 MCV (test code = 787-2) 85.2 fL 81.7-95.6 MCH (test code = 785-6) 29.7 pg 26.1-32.7 MCHC (test code = 786-4) 34.9 g/dL 31.2-35.0 RDW-SD (test code = 32434-6) 40.4 fL 38.5-51.6 RDW-CV (test code = 788-0) 13.0 % 12.1-15.4 PLT (test code = 777-3) See_Comment [Automated Huckletreea ge] The system which generated this result transmitted reference range: 150 - 328 10*3/?L. The reference range was not used to interpret this result as normal/abnormal. MPV (test code = 08977-4) 9.1 fL 9.8-13.0 L NRBC/100 WBC (test code = 2709308465) See_Comment [Automated Biglion ssage] The system which generated this result transmitted reference range: 0.0 - 10.0 /100 WBCs. The reference range was not used to interpret this result as normal/abnormal. NRBC x10^3 (test code = 8112530143) See_Comment [Automated messa ge] The system which generated this result transmitted reference range: 10*3/?L. The reference range was not used to interpret this result as normal/abnormal. GRAN MAT (NEUT) % (test code = 770-8) 53.2 % IMM GRAN % (test code = 0852302212) 0.10 % LYMPH % (test code = 736-9) 36.6 % MONO % (test code = 5905-5) 9.3 % EOS % (test code = 713-8) 0.5 % BASO % (test code = 706-2) 0.3 % GRAN MAT x10^3(ANC) (test code = 4761023246) 4.25 10*3/uL 1.99-6.95 IMM GRAN x10^3 (test code = 9034419337) 0.00-0.06 LYMPH x10^3 (test code = 731-0) 2.92 10*3/uL 1.09-3.23 MONO x10^3 (test code = 742-7) 0.74 10*3/uL 0.36-1.02 EOS x10^3 (test code = 711-2) 0.04 10*3/uL 0.06-0.53 L BASO x10^3 (test code = 704-7) 0.01-0.09 Lab Interpretation (test code = 32727-4) Abnormal [facility]. METABOLIC PANEL (76670)2022-06-09 13:23:22* Test Item Value Reference Range Interpretation Comme nts NA (test code = 4795393539) 138 mmol/L 135-145 K (test code = 2053946560) 4.5 mmol/L 3.5-5 CL (test code = 0683467075) 106 mmol/L 98-108 CO2 TOTAL (test code = 3126206819) 24 mmol/L 23-31 AGAP (test code = 5490166121) 2-16 BUN (test code = 4297100262) 18 mg/dL 7-23 GLUCOSE (test code = 0762103927) 97 mg/dL 70-110 CREATININE (test code = 9358063530) 0.98 mg/dL 0.6-1.25 TOTAL BILI (test code = 7149114492) 0.5 mg/dL 0.1-1.1 CALCIUM (test code = 8685863481) 9.3 mg/dL 8.6-10.6 T PROTEIN (test code = 9006961421) 7.3 g/dL 6.3-8.2 ALBUMIN (test code = 0470012251) 4.5 g/dL 3.5-5 ALK PHOS (test code = 0009927133) 65 U/L 34-122 ALTv (test code = 1742-6) 27 U/L 5-50 AST(SGOT) (test code = 7784156202) 33 U/L 13-40 eGFR (test code = 3984252925) mL/min/1.73m2 KRYSTLE (test code = KRYSTLE) Association [...] or urine or abnormalities in imaging tests). [facility] 13:23:01* Test Item Value Reference Range Interpretation Comme nts LIPASE (test code = 2448957229) 596 U/L 0-220 H Lab Interpretation (test cod e = 58428-1) Abnormal [facility] WITH [id number] 13:09:00* Test Item Value Reference Range Interpretation Comme nts WBC (test code = 6690-2) See_Comment [Automated messa ge] The system which generated this result transmitted reference range: 4.20 - 10.70 10*3/?L. The reference range was not used to interpret this result as normal/abnormal. RBC (test code = 789-8) See_Comment [Automated messa ge] The system which generated this result transmitted reference range: 4.26 - 5.52 10*6/?L. The reference range was not used to interpret this result as normal/abnormal. HGB (test code = 718-7) 15.0 g/dL 12.2-16.4 HCT (test code = 4544-3) 42.1 % 38.4-49.3 MCV (test code = 787-2) 85.4 fL 81.7-95.6 MCH (test code = 785-6) 30.4 pg 26.1-32.7 MCHC (test code = 786-4) 35.6 g/dL 31.2-35 H RDW-SD (test code = 85871-3) 38.3 fL 38.5-51.6 L RDW-CV (test code = 788-0) 12.3 % 12.1-15.4 PLT (test code = 777-3) See_Comment [Automated messa ge] The system which generated this result transmitted reference range: 150 - 328 10*3/?L. The reference range was not used to interpret this result as normal/abnormal. MPV (test code = 78578-0) 9.2 fL 9.8-13 L NRBC/100 WBC (test code = 6589524194) See_Comment [Automated Biglion ssage] The system which generated this result transmitted reference range: 0.0 - 10.0 /100 WBCs. The reference range was not used to interpret this result as normal/abnormal. NRBC x10^3 (test code = 0295519754) See_Comment [Automated messa ge] The system which generated this result transmitted reference range: 10*3/?L. The reference range was not used to interpret this result as normal/abnormal. GRAN MAT (NEUT) % (test code = 770-8) 47.3 % IMM GRAN % (test code = 7001235874) 0.30 % LYMPH % (test code = 736-9) 43.8 % MONO % (test code = 5905-5) 7.8 % EOS % (test code = 713-8) 0.5 % BASO % (test code = 706-2) 0.3 % GRAN MAT x10^3(ANC) (test code = 3365241780) 3.04 10*3/uL 1.99-6.95 IMM GRAN x10^3 (test code = 6479267224) 0-0.06 LYMPH x10^3 (test code = 731-0) 2.81 10*3/uL 1.09-3.23 MONO x10^3 (test code = 742-7) 0.50 10*3/uL 0.36-1.02 EOS x10^3 (test code = 711-2) 0.03 10*3/uL 0.06-0.53 L BASO x10^3 (test code = 704-7) 0.01-0.09 Lab Interpretation (test code = 65056-5) Abnormal [facility] METABOLIC PANEL (NA, K, CL, CO2, GLUCOSE, BUN, CREATININE, CA)2021-11-01 10:40:12* Test Item Value Reference Range Interpretation Comme nts NA (test code = 4704359609) 136 mmol/L 135-145 K (test code = 7721146795) 4.2 mmol/L 3.5-5.0 CL (test code = 0647667204) 104 mmol/L 98-108 CO2 TOTAL (test code = 3416566792) 31 mmol/L 23-31 AGAP (test code = 1658111214) 2-16 L BUN (test code = 6188349068) 15 mg/dL 7-23 GLUCOSE (test code = 0529591257) 91 mg/dL 70-110 CREATININE (test code = 0028395619) 0.96 mg/dL 0.60-1.25 CALCIUM (test code = 2155877054) 8.5 mg/dL 8.6-10.6 L eGFR (test code = 7720713559) mL/min/1.73m2 KRYSTLE (test code = KRYSTLE) Association [...] imaging tests). Lab Interpretation (test code = 51389-0) [facility] 10:40:12* Test Item Value Reference Range Interpretation Comme nts MAGNESIUM (test code = 9211055497) 1.7 mg/dL 1.7-2.4 Lab Interpretation (test cod e = 44943-9) [facility]22[facility]18 10:39:52* Test Item Value Reference Range Interpretation Comme nts PHOSPHORUS (test code = 7908839901) 4.4 mg/dL 2.5-5.0 Lab Interpretation (test cod e = 73278-7) Normal [facility] WITH [id number] 10:25:11* Test Item Value Reference Range Interpretation Comme nts WBC (test code = 6690-2) See_Comment [Automated messa ge] The system which generated this result transmitted reference range: 4.20 - 10.70 10*3/?L. The reference range was not used to interpret this result as normal/abnormal. RBC (test code = 789-8) See_Comment [Automated messa ge] The system which generated this result transmitted reference range: 4.26 - 5.52 10*6/?L. The reference range was not used to interpret this result as normal/abnormal. HGB (test code = 718-7) 14.8 g/dL 12.2-16.4 HCT (test code = 4544-3) 43.1 % 38.4-49.3 MCV (test code = 787-2) 86.0 fL 81.7-95.6 MCH (test code = 785-6) 29.5 pg 26.1-32.7 MCHC (test code = 786-4) 34.3 g/dL 31.2-35.0 RDW-SD (test code = 83671-8) 38.5 fL 38.5-51.6 RDW-CV (test code = 788-0) 12.3 % 12.1-15.4 PLT (test code = 777-3) See_Comment [Automated messa ge] The system which generated this result transmitted reference range: 150 - 328 10*3/?L. The reference range was not used to interpret this result as normal/abnormal. MPV (test code = 99230-3) 9.6 fL 9.8-13.0 L NRBC/100 WBC (test code = 2831371188) See_Comment [Automated Biglion ssage] The system which generated this result transmitted reference range: 0.0 - 10.0 /100 WBCs. The reference range was not used to interpret this result as normal/abnormal. NRBC x10^3 (test code = 8902329422) <0.01 See_Comment [Automated messa ge] The system which generated this result transmitted reference range: 10*3/?L. The reference range was not used to interpret this result as normal/abnormal. GRAN MAT (NEUT) % (test code = 770-8) 49.5 % IMM GRAN % (test code = 0398133920) 0.30 % LYMPH % (test code = 736-9) 39.4 % MONO % (test code = 5905-5) 9.7 % EOS % (test code = 713-8) 0.8 % BASO % (test code = 706-2) 0.3 % GRAN MAT x10^3(ANC) (test code = 8512818719) 3.13 10*3/uL 1.99-6.95 IMM GRAN x10^3 (test code = 2914750348) <0.03 0.00-0.06 LYMPH x10^3 (test code = 731-0) 2.49 10*3/uL 1.09-3.23 MONO x10^3 (test code = 742-7) 0.61 10*3/uL 0.36-1.02 EOS x10^3 (test code = 711-2) 0.05 10*3/uL 0.06-0.53 L BASO x10^3 (test code = 704-7) <0.03 0.01-0.09 Lab Interpretation (test code = 77241-4) [facility]normal [facility] [id number] 17:32:56* Test Item Value Reference Range Interpretation Comme nts NT-proBNP (test code = 7923099698) 13 pg/mL See_Comment [Automated message] The system which generated this result transmitted reference range: <=125. The reference range was not used to interpret this result as normal/abnormal. KRYSTLE (test code = KRYSTLE) Biotin has been reported to cause a negative bias, interpret results relative to patient's use of biotin. Lab Interpretation (test code = 69586-1) [facility] [id number] 10:50:49* Test Item Value Reference Range Interpretation Comme nts NT-proBNP (test code = 2254343404) <11 See_Comment [Automated message] The system which generated this result transmitted reference range: <=125 pg/mL. The reference range was not used to interpret this result as normal/abnormal. KRYSTLE (test code = KRYSTLE) Biotin has been reported to cause a negative bias, interpret results relative to patient's use of biotin. Lab Interpretation (test code = 12345-1) [facility] [id number] 10:36:56* Test Item Value Reference Range Interpretation Comments TROPONIN I (test code = 0463327413) 0.004 ng/mL See_Comment [Automated message] The system which generated this result transmitted reference range: <=0.034. The reference range was not used to interpret this result as normal/abnormal. KRYSTLE (test code = KRYSTLE) Reference (Normal) [...] of biotin. Lab Interpretation (test code = 30593-9) [facility] METABOLIC PANEL (82432)2021-10-31 10:33:50* Test Item Value Reference Range Interpretation Comme nts NA (test code = 6630941063) 139 mmol/L 135-145 K (test code = 6596170350) 4.0 mmol/L 3.5-5.0 CL (test code = 4932733696) 109 mmol/L 98-108 H CO2 TOTAL (test code = 6767317329) 27 mmol/L 23-31 AGAP (test code = 9388449373) 2-16 BUN (test code = 4740309284) 16 mg/dL 7-23 GLUCOSE (test code = 2898207738) 97 mg/dL 70-110 CREATININE (test code = 0642358181) 1.00 mg/dL 0.60-1.25 TOTAL BILI (test code = 1052775914) 1.0 mg/dL 0.1-1.1 CALCIUM (test code = 9566326340) 8.7 mg/dL 8.6-10.6 T PROTEIN (test code = 3589953548) 7.9 g/dL 6.3-8.2 ALBUMIN (test code = 5776551621) 4.4 g/dL 3.5-5.0 ALK PHOS (test code = 1808084763) 60 U/L 34-122 ALTv (test code = 1742-6) 56 U/L 5-50 H AST(SGOT) (test code = 3465873215) 49 U/L 13-40 H eGFR (test code = 9332209639) mL/min/1.73m2 KRYSTLE (test code = KRYSTLE) Association [...] imaging tests). Lab Interpretation (test code = 96676-2) [facility]normal [facility] ArlingtonMagn[facility] [id number] 10:25:32* Test Item Value Reference Range Interpretation Comme nts MAGNESIUM (test code = 4714383679) 1.8 mg/dL 1.7-2.4 Lab Interpretation (test cod e = 53191-6) [facility]2022-[facility]-17 10:25:12* Test Item Value Reference Range Interpretation Comme nts PHOSPHORUS (test code = 4050682808) 3.9 mg/dL 2.5-5.0 Lab Interpretation (test cod e = 73573-9) [facility] [id number] 10:24:52* Test Item Value Reference Range Interpretation Comme nts CK (test code = 9353596627) 215 U/L 33-194 H Lab Interpretation (test cod e = 26807-2) [facility]normal [facility] Arlington[facility] with [id number] 10:18:09* Test Item Value Reference Range Interpretation Comme nts WBC (test code = 6690-2) See_Comment [Automated messa ge] The system which generated this result transmitted reference range: 4.20 - 10.70 10*3/?L. The reference range was not used to interpret this result as normal/abnormal. RBC (test code = 789-8) See_Comment [Automated messa ge] The system which generated this result transmitted reference range: 4.26 - 5.52 10*6/?L. The reference range was not used to interpret this result as normal/abnormal. HGB (test code = 718-7) 15.4 g/dL 12.2-16.4 HCT (test code = 4544-3) 45.4 % 38.4-49.3 MCV (test code = 787-2) 87.5 fL 81.7-95.6 MCH (test code = 785-6) 29.7 pg 26.1-32.7 MCHC (test code = 786-4) 33.9 g/dL 31.2-35.0 RDW-SD (test code = 91673-4) 41.3 fL 38.5-51.6 RDW-CV (test code = 788-0) 13.0 % 12.1-15.4 PLT (test code = 777-3) See_Comment [Automated messa ge] The system which generated this result transmitted reference range: 150 - 328 10*3/?L. The reference range was not used to interpret this result as normal/abnormal. MPV (test code = 89488-2) 10.0 fL 9.8-13.0 NRBC/100 WBC (test code = 4321403902) See_Comment [Automated Biglion ssage] The system which generated this result transmitted reference range: 0.0 - 10.0 /100 WBCs. The reference range was not used to interpret this result as normal/abnormal. NRBC x10^3 (test code = 8034436700) <0.01 See_Comment [Automated messa ge] The system which generated this result transmitted reference range: 10*3/?L. The reference range was not used to interpret this result as normal/abnormal. GRAN MAT (NEUT) % (test code = 770-8) 46.4 % IMM GRAN % (test code = 4202961474) 0.20 % LYMPH % (test code = 736-9) 44.0 % MONO % (test code = 5905-5) 8.3 % EOS % (test code = 713-8) 0.7 % BASO % (test code = 706-2) 0.4 % GRAN MAT x10^3(ANC) (test code = 8663305233) 3.73 10*3/uL 1.99-6.95 IMM GRAN x10^3 (test code = 7964323363) <0.03 0.00-0.06 LYMPH x10^3 (test code = 731-0) 3.55 10*3/uL 1.09-3.23 H MONO x10^3 (test code = 742-7) 0.67 10*3/uL 0.36-1.02 EOS x10^3 (test code = 711-2) 0.06 10*3/uL 0.06-0.53 BASO x10^3 (test code = 704-7) 0.03 10*3/uL 0.01-0.09 Lab Interpretation (test code = 92114-0) [facility]normal [facility] / [id number] 10:18:09* Test Item Value Reference Range Interpretation Comme nts PROTIME PATIENT (test code = 5964-2) See_Comment [Automated messa ge] The system which generated this result transmitted reference range: 12.0 - 14.7 Seconds. The reference range was not used to interpret this result as normal/abnormal. INR (test code = 6301-6) Normal INR <1.1; Warfarin Therapeutic range 2.0 to 3.0 or 2.5 to 3.5, depending upon the indications. Lab Interpretation (test code = 21819-4) Normal [facility] ArlingtonSTEPHANYN [id number] 07:43:50* Test Item Value Reference Range Interpretation Comments TROPONIN I (test code = 9198100453) 0.005 ng/mL See_Comment [Automated message] The system which generated this result transmitted reference range: <=0.034. The reference range was not used to interpret this result as normal/abnormal. KRYSTLE (test code = KRYSTLE) Reference (Normal) [...] of biotin. Lab Interpretation (test code = 26818-1) Normal [facility]. METABOLIC PANEL (15111)2021-10-30 20:56:25* Test Item Value Reference Range Interpretation Comme nts NA (test code = 0339211218) 139 mmol/L 135-145 K (test code = 1950062467) 4.8 mmol/L 3.5-5.0 CL (test code = 1733180972) 105 mmol/L 98-108 CO2 TOTAL (test code = 0294932137) 26 mmol/L 23-31 AGAP (test code = 2333139093) 2-16 BUN (test code = 9523677662) 18 mg/dL 7-23 GLUCOSE (test code = 8872788820) 135 mg/dL 70-110 H CREATININE (test code = 6799371477) 0.98 mg/dL 0.60-1.25 TOTAL BILI (test code = 3237249847) 0.8 mg/dL 0.1-1.1 CALCIUM (test code = 5730507910) 10.0 mg/dL 8.6-10.6 T PROTEIN (test code = 8664009894) 10.3 g/dL 6.3-8.2 H ALBUMIN (test code = 4538343983) 5.5 g/dL 3.5-5.0 H ALK PHOS (test code = 9494061657) 74 U/L 34-122 ALTv (test code = 1742-6) 69 U/L 5-50 H AST(SGOT) (test code = 0241648637) 59 U/L 13-40 H eGFR (test code = 5774204803) mL/min/1.73m2 KRYSTLE (test code = KRYSTLE) Association [...] imaging tests). Lab Interpretation (test code = 63095-3) [facility] 20:56:05* Test Item Value Reference Range Interpretation Comme nts LIPASE (test code = 3721350143) 70 U/L 0-220 Lab Interpretation (test cod e = 84495-8) Normal [facility] WITH [id number] 20:34:20* Test Item Value Reference Range Interpretation Comme nts WBC (test code = 6690-2) See_Comment H [Automated messa ge] The system which generated this result transmitted reference range: 4.20 - 10.70 10*3/?L. The reference range was not used to interpret this result as normal/abnormal. RBC (test code = 789-8) See_Comment H [Automated messa ge] The system which generated this result transmitted reference range: 4.26 - 5.52 10*6/?L. The reference range was not used to interpret this result as normal/abnormal. HGB (test code = 718-7) 18.2 g/dL 12.2-16.4 H HCT (test code = 4544-3) 53.0 % 38.4-49.3 H MCV (test code = 787-2) 86.7 fL 81.7-95.6 MCH (test code = 785-6) 29.8 pg 26.1-32.7 MCHC (test code = 786-4) 34.3 g/dL 31.2-35.0 RDW-SD (test code = 59126-0) 40.6 fL 38.5-51.6 RDW-CV (test code = 788-0) 12.8 % 12.1-15.4 PLT (test code = 777-3) See_Comment [Automated messa ge] The system which generated this result transmitted reference range: 150 - 328 10*3/?L. The reference range was not used to interpret this result as normal/abnormal. MPV (test code = 06948-3) 9.2 fL 9.8-13.0 L NRBC/100 WBC (test code = 4321221938) See_Comment [Automated Biglion ssage] The system which generated this result transmitted reference range: 0.0 - 10.0 /100 WBCs. The reference range was not used to interpret this result as normal/abnormal. NRBC x10^3 (test code = 3898172792) <0.01 See_Comment [Automated messa ge] The system which generated this result transmitted reference range: 10*3/?L. The reference range was not used to interpret this result as normal/abnormal. GRAN MAT (NEUT) % (test code = 770-8) 67.1 % IMM GRAN % (test code = 6267930068) 0.40 % LYMPH % (test code = 736-9) 24.5 % MONO % (test code = 5905-5) 7.6 % EOS % (test code = 713-8) 0.1 % BASO % (test code = 706-2) 0.3 % GRAN MAT x10^3(ANC) (test code = 1211057361) 7.34 10*3/uL 1.99-6.95 H IMM GRAN x10^3 (test code = 7851105514) 0.04 10*3/uL 0.00-0.06 LYMPH x10^3 (test code = 731-0) 2.67 10*3/uL 1.09-3.23 MONO x10^3 (test code = 742-7) 0.83 10*3/uL 0.36-1.02 EOS x10^3 (test code = 711-2) <0.03 0.06-0.53 L BASO x10^3 (test code = 704-7) 0.03 10*3/uL 0.01-0.09 Lab Interpretation (test code = 43050-1) [facility] [id number] 05:55:54* Test Item Value Reference Range Interpretation Comme nts CK (test code = 1150989479) 3682 U/L 33-194 H Lab Interpretation (test cod e = 81389-5) [facility] [id number] 05:55:54* Test Item Value Reference Range Interpretation Comme nts CK (test code = 1167202576) 3682 U/L 33-194 H Lab Interpretation (test cod e = 65932-2) [facility] (NA, K, CL, CO2, GLUCOSE, BUN, CREATININE, CA)2021-05-24 05:02:27* Test Item Value Reference Range Interpretation Comme nts NA (test code = 0036688343) 137 mmol/L 135-145 K (test code = 1819156956) 3.6 mmol/L 3.5-5.0 CL (test code = 0622312124) 105 mmol/L 98-108 CO2 TOTAL (test code = 9038687771) 23 mmol/L 23-31 AGAP (test code = 8032284135) 2-16 BUN (test code = 1023784903) 26 mg/dL 7-23 H GLUCOSE (test code = 7541605561) 95 mg/dL 70-110 CREATININE (test code = 2274280497) 1.31 mg/dL 0.60-1.25 H CALCIUM (test code = 8922678489) 8.6 mg/dL 8.6-10.6 eGFR (test code = 0859470083) mL/min/1.73m2 KRYSTLE (test code = KRYSTLE) Association [...] imaging tests). Lab Interpretation (test code = 25687-2) [facility] (NA, K, CL, CO2, GLUCOSE, BUN, CREATININE, CA)2021-05-24 05:02:27* Test Item Value Reference Range Interpretation Comme nts NA (test code = 8244523407) 137 mmol/L 135-145 K (test code = 6239513959) 3.6 mmol/L 3.5-5.0 CL (test code = 6822279134) 105 mmol/L 98-108 CO2 TOTAL (test code = 9802358522) 23 mmol/L 23-31 AGAP (test code = 8867436152) 2-16 BUN (test code = 2476363955) 26 mg/dL 7-23 H GLUCOSE (test code = 9349465841) 95 mg/dL 70-110 CREATININE (test code = 5194525196) 1.31 mg/dL 0.60-1.25 H CALCIUM (test code = 9564073346) 8.6 mg/dL 8.6-10.6 eGFR (test code = 6049806312) mL/min/1.73m2 KRYSTLE (test code = KRYSTLE) Association [...] imaging tests). Lab Interpretation (test code = 18582-7) Abnormal [facility] [id number] 02:56:10* Test Item Value Reference Range Interpretation Comments TROPONIN I (test code = 2141752346) 0.004 ng/mL See_Comment [Automated message] The system which generated this result transmitted reference range: <=0.034. The reference range was not used to interpret this result as normal/abnormal. KRYSTLE (test code = KRYSTLE) Reference (Normal) [...] of biotin. Lab Interpretation (test code = 88737-5) Normal [facility] Z8852-04-11 02:56:10* Test Item Value Reference Range Interpretation Comments TROPONIN I (test code = 7690421683) 0.004 ng/mL See_Comment [Automated message] The system which generated this result transmitted reference range: <=0.034. The reference range was not used to interpret this result as normal/abnormal. KRYSTLE (test code = KRYSTLE) Reference (Normal) [...] of biotin. Lab Interpretation (test code = 06690-1) [facility]O5719-02-33 02:41:54* Test Item Value Reference Range Interpretation Comme nts CK (test code = 9456281799) 4607 U/L 33-194 H Lab Interpretation (test cod e = 36221-5) Abnormal [facility]AT[facility] [id number] 02:41:54* Test Item Value Reference Range Interpretation Comme nts CK (test code = 4233077104) 4607 U/L 33-194 H Lab Interpretation (test cod e = 22954-3) [facility]normal [facility] [id number] 02:33:28* Test Item Value Reference Range Interpretation Comme nts NT-proBNP (test code = 4047518095) 14 pg/mL See_Comment [Automated message] The system which generated this result transmitted reference range: <=125. The reference range was not used to interpret this result as normal/abnormal. KRYSTLE (test code = KRYSTLE) Biotin has been reported to cause a negative bias, interpret results relative to patient's use of biotin. Lab Interpretation (test code = 86083-1) Normal [facility] [id number] 02:33:28* Test Item Value Reference Range Interpretation Comme nts NT-proBNP (test code = 4421139372) 14 pg/mL See_Comment [Automated message] The system which generated this result transmitted reference range: <=125. The reference range was not used to interpret this result as normal/abnormal. KRYSTLE (test code = KRYSTLE) Biotin has been reported to cause a negative bias, interpret results relative to patient's use of biotin. Lab Interpretation (test code = 25477-2) Normal [facility] 02:29:35* Test Item Value Reference Range Interpretation Comme nts APPEARANCE (test code = 1711753671) Clear Clear COLOR (test code = 8039220818) Yellow Yellow PH (test code = 1620123281) 4.8-8.0 SP GRAVITY (test code = 0861365284) 1.003-1.030 GLU U QUAL (test code = 4737860350) Normal Normal BLOOD (test code = 9546097770) Negative Negative KETONES (test code = 4609954915) Negative Negative PROTEIN (test code = 2887-8) Negative Negative UROBILIN (test code = 8882990161) 2.0 mg/dL Normal A BILIRUBIN (test code = 9830798767) Negative Negative NITRITE (test code = 1575375043) Negative Negative LEUK MO (test code = 7058639484) Negative Negative RBC/HPF (test code = 8962163133) See_Comment [Automated messa ge] The system which generated this result transmitted reference range: 0 - 3 HPF. The reference range was not used to interpret this result as normal/abnormal. WBC/HPF (test code = 9133703231) See_Comment [Automated messa ge] The system which generated this result transmitted reference range: 0 - 5 HPF. The reference range was not used to interpret this result as normal/abnormal. BACTERIA (test code = 2575595208) Negative Negative MUCOUS (test code = 6038736943) Slight Negative LPF A SQ EPITH (test code = 8977728235) <1 HPF Lab Interpretation (test code = 79944-6) [facility] 02:29:35* Test Item Value Reference Range Interpretation Comme nts APPEARANCE (test code = 5195036800) Clear Clear COLOR (test code = 3369232193) Yellow Yellow PH (test code = 8069038923) 4.8-8.0 SP GRAVITY (test code = 1365695799) 1.003-1.030 GLU U QUAL (test code = 2153318577) Normal Normal BLOOD (test code = 4318809406) Negative Negative KETONES (test code = 5000048979) Negative Negative PROTEIN (test code = 2887-8) Negative Negative UROBILIN (test code = 4539675021) 2.0 mg/dL Normal A BILIRUBIN (test code = 8601495711) Negative Negative NITRITE (test code = 5887537702) Negative Negative LEUK MO (test code = 8094999417) Negative Negative RBC/HPF (test code = 2329813759) See_Comment [Automated Huckletreea ge] The system which generated this result transmitted reference range: 0 - 3 HPF. The reference range was not used to interpret this result as normal/abnormal. WBC/HPF (test code = 1179200801) See_Comment [Automated messa ge] The system which generated this result transmitted reference range: 0 - 5 HPF. The reference range was not used to interpret this result as normal/abnormal. BACTERIA (test code = 3814028979) Negative Negative MUCOUS (test code = 7756647123) Slight Negative LPF A SQ EPITH (test code = 3801542724) <1 HPF Lab Interpretation (test code = 03307-0) Abnormal [facility]. METABOLIC PANEL (88696)2021-05-24 02:25:07* Test Item Value Reference Range Interpretation Comme nts NA (test code = 8083857618) 137 mmol/L 135-145 K (test code = 7703428468) 3.1 mmol/L 3.5-5.0 L CL (test code = 5330009456) 102 mmol/L 98-108 CO2 TOTAL (test code = 9947559869) 22 mmol/L 23-31 L AGAP (test code = 5801642629) 2-16 BUN (test code = 9383870732) 28 mg/dL 7-23 H GLUCOSE (test code = 7521068663) 132 mg/dL 70-110 H CREATININE (test code = 1701483596) 1.77 mg/dL 0.60-1.25 H TOTAL BILI (test code = 2666731330) 1.0 mg/dL 0.1-1.1 CALCIUM (test code = 9930550594) 9.4 mg/dL 8.6-10.6 T PROTEIN (test code = 2124337538) 9.4 g/dL 6.3-8.2 H ALBUMIN (test code = 6843750396) 5.0 g/dL 3.5-5.0 ALK PHOS (test code = 4300041733) 79 U/L 34-122 ALTv (test code = 1742-6) 112 U/L 5-50 H AST(SGOT) (test code = 8024764781) 152 U/L 13-40 H eGFR (test code = 9683795539) mL/min/1.73m2 KRYSTLE (test code = KRYSTLE) Association [...] imaging tests). Lab Interpretation (test code = 94271-9) Abnormal [facility]. METABOLIC PANEL (98167)2021-05-24 02:25:07* Test Item Value Reference Range Interpretation Comme nts NA (test code = 4896793464) 137 mmol/L 135-145 K (test code = 0017886735) 3.1 mmol/L 3.5-5.0 L CL (test code = 1515945710) 102 mmol/L 98-108 CO2 TOTAL (test code = 4190656821) 22 mmol/L 23-31 L AGAP (test code = 8887653788) 2-16 BUN (test code = 1496288904) 28 mg/dL 7-23 H GLUCOSE (test code = 9389627342) 132 mg/dL 70-110 H CREATININE (test code = 4559410747) 1.77 mg/dL 0.60-1.25 H TOTAL BILI (test code = 7383853296) 1.0 mg/dL 0.1-1.1 CALCIUM (test code = 2686084961) 9.4 mg/dL 8.6-10.6 T PROTEIN (test code = 5823764698) 9.4 g/dL 6.3-8.2 H ALBUMIN (test code = 3050349019) 5.0 g/dL 3.5-5.0 ALK PHOS (test code = 3085880311) 79 U/L 34-122 ALTv (test code = 1742-6) 112 U/L 5-50 H AST(SGOT) (test code = 5200332934) 152 U/L 13-40 H eGFR (test code = 7672191971) mL/min/1.73m2 KRYSTLE (test code = KRYSTLE) Association [...] imaging tests). Lab Interpretation (test code = 36836-5) Abnormal [facility] WITH [id number] 02:03:22* Test Item Value Reference Range Interpretation Comme nts WBC (test code = 6690-2) See_Comment [Automated Huckletreea ge] The system which generated this result transmitted reference range: 4.20 - 10.70 10*3/?L. The reference range was not used to interpret this result as normal/abnormal. RBC (test code = 789-8) See_Comment [Automated Huckletreea ge] The system which generated this result transmitted reference range: 4.26 - 5.52 10*6/?L. The reference range was not used to interpret this result as normal/abnormal. HGB (test code = 718-7) 15.6 g/dL 12.2-16.4 HCT (test code = 4544-3) 43.7 % 38.4-49.3 MCV (test code = 787-2) 84.7 fL 81.7-95.6 MCH (test code = 785-6) 30.2 pg 26.1-32.7 MCHC (test code = 786-4) 35.7 g/dL 31.2-35.0 H RDW-SD (test code = 34138-6) 39.7 fL 38.5-51.6 RDW-CV (test code = 788-0) 12.7 % 12.1-15.4 PLT (test code = 777-3) See_Comment [Automated Huckletreea ge] The system which generated this result transmitted reference range: 150 - 328 10*3/?L. The reference range was not used to interpret this result as normal/abnormal. MPV (test code = 59204-9) 9.7 fL 9.8-13.0 L NRBC/100 WBC (test code = 3447428518) See_Comment [Automated Biglion ssage] The system which generated this result transmitted reference range: 0.0 - 10.0 /100 WBCs. The reference range was not used to interpret this result as normal/abnormal. NRBC x10^3 (test code = 6170219567) <0.01 See_Comment [Automated Huckletreea ge] The system which generated this result transmitted reference range: 10*3/?L. The reference range was not used to interpret this result as normal/abnormal. GRAN MAT (NEUT) % (test code = 770-8) 45.9 % IMM GRAN % (test code = 6446434519) 0.20 % LYMPH % (test code = 736-9) 41.7 % MONO % (test code = 5905-5) 11.6 % EOS % (test code = 713-8) 0.3 % BASO % (test code = 706-2) 0.3 % GRAN MAT x10^3(ANC) (test code = 3772106152) 3.95 10*3/uL 1.99-6.95 IMM GRAN x10^3 (test code = 1940157064) <0.03 0.00-0.06 LYMPH x10^3 (test code = 731-0) 3.60 10*3/uL 1.09-3.23 H MONO x10^3 (test code = 742-7) 1.00 10*3/uL 0.36-1.02 EOS x10^3 (test code = 711-2) 0.03 10*3/uL 0.06-0.53 L BASO x10^3 (test code = 704-7) 0.03 10*3/uL 0.01-0.09 Lab Interpretation (test code = 65070-0) Abnormal [facility] WITH [id number] 02:03:22* Test Item Value Reference Range Interpretation Comme nts WBC (test code = 6690-2) See_Comment [Automated Huckletreea ge] The system which generated this result transmitted reference range: 4.20 - 10.70 10*3/?L. The reference range was not used to interpret this result as normal/abnormal. RBC (test code = 789-8) See_Comment [Automated Huckletreea ge] The system which generated this result transmitted reference range: 4.26 - 5.52 10*6/?L. The reference range was not used to interpret this result as normal/abnormal. HGB (test code = 718-7) 15.6 g/dL 12.2-16.4 HCT (test code = 4544-3) 43.7 % 38.4-49.3 MCV (test code = 787-2) 84.7 fL 81.7-95.6 MCH (test code = 785-6) 30.2 pg 26.1-32.7 MCHC (test code = 786-4) 35.7 g/dL 31.2-35.0 H RDW-SD (test code = 34367-2) 39.7 fL 38.5-51.6 RDW-CV (test code = 788-0) 12.7 % 12.1-15.4 PLT (test code = 777-3) See_Comment [Automated messa ge] The system which generated this result transmitted reference range: 150 - 328 10*3/?L. The reference range was not used to interpret this result as normal/abnormal. MPV (test code = 97196-5) 9.7 fL 9.8-13.0 L NRBC/100 WBC (test code = 9225095720) See_Comment [Automated Biglion ssage] The system which generated this result transmitted reference range: 0.0 - 10.0 /100 WBCs. The reference range was not used to interpret this result as normal/abnormal. NRBC x10^3 (test code = 3895310211) <0.01 See_Comment [Automated messa ge] The system which generated this result transmitted reference range: 10*3/?L. The reference range was not used to interpret this result as normal/abnormal. GRAN MAT (NEUT) % (test code = 770-8) 45.9 % IMM GRAN % (test code = 5266607299) 0.20 % LYMPH % (test code = 736-9) 41.7 % MONO % (test code = 5905-5) 11.6 % EOS % (test code = 713-8) 0.3 % BASO % (test code = 706-2) 0.3 % GRAN MAT x10^3(ANC) (test code = 1169578905) 3.95 10*3/uL 1.99-6.95 IMM GRAN x10^3 (test code = 7105373873) <0.03 0.00-0.06 LYMPH x10^3 (test code = 731-0) 3.60 10*3/uL 1.09-3.23 H MONO x10^3 (test code = 742-7) 1.00 10*3/uL 0.36-1.02 EOS x10^3 (test code = 711-2) 0.03 10*3/uL 0.06-0.53 L BASO x10^3 (test code = 704-7) 0.03 10*3/uL 0.01-0.09 Lab Interpretation (test code = 18848-6) Abnormal [facility]- (ID NOW RAPID TESTING)2021-05-02 00:31:00* Test Item Value Reference Range Interpretation Comme nts SARS-CoV-2 Rapid ID NOW (test code = 13823-1) Not Detected Not Detected KRYSTLE (test code = KRYSTLE) ID NOW COVID-19 As say is an isothermal nucleic acid amplification test intended for the qualitative detection of nucleic acid from SARS-CoV-2 viral RNA in nasopharyngeal (JUDGE) specimens. It is used under Emergency Use [...] patient testing if clinically indicated. Lab Interpretation (test code = 21817-0) Normal [facility] STREP SCREEN FOR GROUP [id number] 00:25:45* Test Item Value Reference Range Interpretation Comme nts Streptococcus pyogenes (grou p A) antigen (test code = 56344-7) Negative Negative Lab Interpretation (test cod e = 53756-5) Normal [facility]- (ID NOW RAPID TESTING)2021-04-02 01:41:42* Test Item Value Reference Range Interpretation Comme nts SARS-CoV-2 Rapid ID NOW (test code = 57661-0) Not Detected Not Detected KRYSTLE (test code = KRYSTLE) ID NOW COVID-19 As say is an isothermal nucleic acid amplification test intended for the qualitative detection of nucleic acid from SARS-CoV-2 viral RNA in nasopharyngeal (JUDGE) specimens. It is used under Emergency Use [...] patient testing if clinically indicated. Lab Interpretation (test code = 28978-6) [facility] FOR GROUP [id number] 01:39:31* Test Item Value Reference Range Interpretation Comme nts Streptococcus pyogenes (grou p A) antigen (test code = 94312-0) Negative Negative Lab Interpretation (test cod e = 63554-4) Normal [facility] 3+ VW [id number] 02:41:03 Impression: No acute osseous abnormality. AFC: [id number] of Report Exam: XR WRIST 3+ VW LEFT, 03/17/2021 8:15 PM. Ordering Physician: NIKHIL BLANTON. History: Wrist pain, felt pop 6/ . Technique: XR WRIST 3+ VW LEFT [...] soft tissue edema.IMPRESSIONImpression: No acute osseous abnormality.AFC: [id number] 460End of Report [facility]ysis[facility] 01:32:01* Test Item Value Reference Range Interpretation Comme nts APPEARANCE (test code = 4799263530) Clear Clear COLOR (test code = 2493286607) Yellow Yellow PH (test code = 2187330031) 4.8-8.0 SP GRAVITY (test code = 2416258657) 1.003-1.030 GLU U QUAL (test code = 9886334041) Normal Normal BLOOD (test code = 1936785748) Negative Negative KETONES (test code = 3918802808) Negative Negative PROTEIN (test code = 2887-8) Negative Negative UROBILIN (test code = 7260897074) 2.0 mg/dL Normal A BILIRUBIN (test code = 5472704391) Negative Negative NITRITE (test code = 2510305685) Negative Negative LEUK MO (test code = 2330535348) Negative Negative RBC/HPF (test code = 4607620244) See_Comment [Automated Huckletreea ge] The system which generated this result transmitted reference range: 0 - 3 HPF. The reference range was not used to interpret this result as normal/abnormal. WBC/HPF (test code = 0992577819) See_Comment [Automated Huckletreea ge] The system which generated this result transmitted reference range: 0 - 5 HPF. The reference range was not used to interpret this result as normal/abnormal. BACTERIA (test code = 9546305077) Few Negative A MUCOUS (test code = 4039236582) Slight Negative LPF A SQ EPITH (test code = 0812427734) <1 HPF Lab Interpretation (test code = 63706-4) [facility] 1 [id number] 04:09:05Impression: Mild thickening of the sol of the central airways, possibly reflectinginfectious or inflammatory bronchitis. RL: 460 AFC: [id number] Ordering physician: DARNELL HSU Indication: Cough and congestion Comparison: None F indings: Single AP view of the chest. The cardiopericardial silhouette iswithin normal limits. There is mild thickening of the sol of the centralairways. The visualized bony thorax is intact. [facility],Radiant Results Inft User - 11/14/2020 10:10 PM CSTOrdering physician: DARNELL Sharma MEDINAIndication: Cough and congestionComparison: NoneFindings: Single AP view of the chest. The cardiopericardial silhouette iswithin normal limits. There is mild thickening of the sol of the centralairways. The visualized bony thorax is intact.IMPRESSIONImpression:Mild thickening of the sol of the central airways, possibly reflectinginfectious or inflammatory bronchitis.RL: 460AFC: [id number] signed byMarisol Manzo MD, PhD at 11/14/2020 10:09 PM [facility]COMPREHENSIVE METABOLIC [id number] 00:00:00* Test Item Value Reference Range Interpretation Comme nts GLUCOSE (test code = 2217) 101 MG/DL BUN (test code = 2208) 11 MG/DL CREATININE (test code = 2214) 0.88 MG/DL eGFR AMER. (test cod e = 84295) 118 ML/MIN/1.73 eGFR NON- AMER. (test code = 12738) 102 ML/MIN/1.73 CALC BUN/CREAT (test code = 2235) 13 RATIO SODIUM (test code = 2231) 143 MEQ/L POTASSIUM (test code = 2228) 4.5 MEQ/L CHLORIDE (test code = 2215) 106 MEQ/L CARBON DIOXIDE (test code = 2206) 23 MEQ/L CALCIUM (test code = 2209) 9.5 MG/DL PROTEIN, TOTAL (test code = 2229) 8.2 G/DL ALBUMIN (test code = 2201) 4.5 G/DL CALC GLOBULIN (test code = 2240) 3.7 G/DL CALC A/G RATIO (test code = 2234) 1.2 RATIO BILIRUBIN, TOTAL (test code = 2207) 0.6 MG/DL ALKALINE PHOSPHATASE (test code = 2204) 69 U/L AST (test code = 2218) 54 U/L ALT (test code = 2219) 88 U/L COMPREHENSIVE METABOLIC [id number] 00:00:00* Test Item Value Reference Range Interpretation Comme nts GLUCOSE (test code = 2217) 101 MG/DL BUN (test code = 2208) 11 MG/DL CREATININE (test code = 2214) 0.88 MG/DL eGFR AMER. (test cod e = 49840) 118 ML/MIN/1.73 eGFR NON- AMER. (test code = 33251) 102 ML/MIN/1.73 CALC BUN/CREAT (test code = 2235) 13 RATIO SODIUM (test code = 2231) 143 MEQ/L POTASSIUM (test code = 2228) 4.5 MEQ/L CHLORIDE (test code = 2215) 106 MEQ/L CARBON DIOXIDE (test code = 2206) 23 MEQ/L CALCIUM (test code = 2209) 9.5 MG/DL PROTEIN, TOTAL (test code = 2229) 8.2 G/DL ALBUMIN (test code = 2201) 4.5 G/DL CALC GLOBULIN (test code = 2240) 3.7 G/DL CALC A/G RATIO (test code = 2234) 1.2 RATIO BILIRUBIN, TOTAL (test code = 2207) 0.6 MG/DL ALKALINE PHOSPHATASE (test code = 4) 69 U/L AST (test code = 2218) 54 U/L ALT (test code = 2219) 88 U/L N-TERMINAL [id number] 15:43:00* Test Item Value Reference Range Interpretation Comme nts NT-proBNP (test code = 2595986448) <11 See_Comment [Automated message] The system which generated this result transmitted reference range: <=125 pg/mL. The reference range was not used to interpret this result as normal/abnormal. KRYSTLE (test code = KRYSTLE) Biotin has been reported to cause a negative bias, interpret results relative to patient's use of biotin. Lab Interpretation (test code = 51984-0) Normal [facility] WITH [id number] 15:27:00* Test Item Value Reference Range Interpretation Comme nts WBC (test code = 6690-2) See_Comment [Automated messa ge] The system which generated this result transmitted reference range: 4.20 - 10.70 10*3/?L. The reference range was not used to interpret this result as normal/abnormal. RBC (test code = 789-8) See_Comment [Automated messa ge] The system which generated this result transmitted reference range: 4.26 - 5.52 10*6/?L. The reference range was not used to interpret this result as normal/abnormal. HGB (test code = 718-7) 15.9 g/dL 12.2-16.4 HCT (test code = 4544-3) 45.1 % 38.4-49.3 MCV (test code = 787-2) 86.2 fL 81.7-95.6 MCH (test code = 785-6) 30.4 pg 26.1-32.7 MCHC (test code = 786-4) 35.3 g/dL 31.2-35 H RDW-SD (test code = 82268-3) 37.3 fL 38.5-51.6 L RDW-CV (test code = 788-0) 11.9 % 12.1-15.4 L PLT (test code = 777-3) See_Comment [Automated messa ge] The system which generated this result transmitted reference range: 150 - 328 10*3/?L. The reference range was not used to interpret this result as normal/abnormal. MPV (test code = 87996-3) 9.7 fL 9.8-13 L NRBC/100 WBC (test code = 8126911800) See_Comment [Automated Biglion ssage] The system which generated this result transmitted reference range: 0.0 - 10.0 /100 WBCs. The reference range was not used to interpret this result as normal/abnormal. NRBC x10^3 (test code = 5561496460) <0.01 See_Comment [Automated Huckletreea ge] The system which generated this result transmitted reference range: 10*3/?L. The reference range was not used to interpret this result as normal/abnormal. GRAN MAT (NEUT) % (test code = 770-8) 29.2 % IMM GRAN % (test code = 0109886729) 0.20 % LYMPH % (test code = 736-9) 59.0 % MONO % (test code = 5905-5) 10.1 % EOS % (test code = 713-8) 1.1 % BASO % (test code = 706-2) 0.4 % GRAN MAT x10^3(ANC) (test code = 1723627089) 1.57 10*3/uL 1.99-6.95 L IMM GRAN x10^3 (test code = 6575355371) <0.03 0-0.06 LYMPH x10^3 (test code = 731-0) 3.17 10*3/uL 1.09-3.23 MONO x10^3 (test code = 742-7) 0.54 10*3/uL 0.36-1.02 EOS x10^3 (test code = 711-2) 0.06 10*3/uL 0.06-0.53 BASO x10^3 (test code = 704-7) <0.03 0.01-0.09 Lab Interpretation (test code = 07850-2) [facility] 1 [id number] 15:13:32No acute cardiopulmonary process. Preliminary Report Dictated by Resident: Efraín Alcaraz MD., have reviewed this study and agree withthe above report.PROCEDURE: XR CHEST1 VW CLINICAL INDICATION: dizzy TECHNIQUE: Frontal chest radiograph was obtained. COMPARISON: None FINDINGS: The lungs are clear. No pleural effusion or pneumothorax is seen. The heart is normal in size. No acute bony abnormality is noted. [facility], Radiant Results Inft User - 09/30/2020 9:14 AM CSTPROCEDURE: XR CHEST 1 VWCLINICAL INDICATION: dizzy TECHNIQUE: Frontal chest radiograph was obtained.COMPARISON: NoneFINDINGS:The lungs are clear. No pleural effusion or pneumothorax is seen. The heart isnormal in size.No acute bony abnormality is noted.IMPRESSIONNo acute cardiopulmonary process.Preliminary Report Dictated by Resident: uLiz Ruiz MD., have reviewed thisstudy and agree withthe above report.[facility] ArlingtonTROPONIN [id number] 14:59:00* Test Item Value Reference Range Interpretation Comme nts TROPONIN I (test code = 3738188654) <0.012 See_Comment [Automated message] The system which generated this result transmitted reference range: <=0.034 ng/mL. The reference range was not used to interpret this result as normal/abnormal. KRYSTLE (test code = KRYSTLE) Equal or Less than 0.034 ng/ml---Normal ?Note: Cardiac troponin begins to [...] patient's use of biotin. ? Lab Interpretation (test code = 15865-9) Normal [facility] METABOLIC PANEL (54767)2020-09-30 14:59:00* Test Item Value Reference Range Interpretation Comme nts NA (test code = 3090572636) 139 mmol/L 135-145 K (test code = 6670940072) 3.8 mmol/L 3.5-5 CL (test code = 7502660057) 103 mmol/L 98-108 CO2 TOTAL (test code = 9143862978) 26 mmol/L 23-31 AGAP (test code = 4766171422) 2-16 BUN (test code = 6289029232) 11 mg/dL 7-23 GLUCOSE (test code = 0449136681) 163 mg/dL 70-110 H CREATININE (test code = 5933920454) 0.85 mg/dL 0.6-1.25 TOTAL BILI (test code = 4295525192) 0.6 mg/dL 0.1-1.1 CALCIUM (test code = 1810462987) 9.0 mg/dL 8.6-10.6 T PROTEIN (test code = 5195226067) 8.0 g/dL 6.3-8.2 ALBUMIN (test code = 5618071657) 4.4 g/dL 3.5-5 ALK PHOS (test code = 0528150104) 75 U/L 34-122 ALTv (test code = 1742-6) 61 U/L 5-50 H AST(SGOT) (test code = 3552800912) 54 U/L 13-40 H eGFR Calculation (Non-) (test code = 8849820006) mL/min/1.73m2 eGFR Calculation () (test code = 0398696204) mL/min/1.73m2 KRYSTLE (test code = KRYSTLE) Association [...] imaging tests). Lab Interpretation (test code = 00990-9) Abnormal [facility]LIP[facility], [id number] 14:59:00* Test Item Value Reference Range Interpretation Comme nts LIPASE (test code = 6836261107) 116 U/L 0-220 Lab Interpretation (test cod e = 32326-9) Normal [facility] Arlington[facility]roponin [id number] 04:30:00* Test Item Value Reference Range Interpretation Comme nts TROPONIN I (test code = 9517852341) <0.012 See_Comment [Automated message] The system which generated this result transmitted reference range: <=0.034 ng/mL. The reference range was not used to interpret this result as normal/abnormal. KRYSTLE (test code = KRYSTLE) Equal or Less than 0.034 ng/ml---Normal ?Note: Cardiac troponin begins to [...] patient's use of biotin. ? Lab Interpretation (test code = 39507-6) Normal [facility] Metabolic [id number] 03:24:00* Test Item Value Reference Range Interpretation Comme nts NA (test code = 3427827783) 137 mmol/L 135-145 K (test code = 3620217410) 4.7 mmol/L 3.5-5 CL (test code = 1870448265) 101 mmol/L 98-108 CO2 TOTAL (test code = 7234553262) 27 mmol/L 23-31 AGAP (test code = 7451969716) 2-16 BUN (test code = 2470699254) 16 mg/dL 7-23 GLUCOSE (test code = 8254928254) 226 mg/dL 70-110 H CREATININE (test code = 3946838295) 1.13 mg/dL 0.6-1.25 TOTAL BILI (test code = 3492718475) 0.7 mg/dL 0.1-1.1 CALCIUM (test code = 6085829800) 9.3 mg/dL 8.6-10.6 T PROTEIN (test code = 6861838724) 7.8 g/dL 6.3-8.2 ALBUMIN (test code = 5475789087) 3.9 g/dL 3.5-5 ALK PHOS (test code = 4698959033) 79 U/L 34-122 ALTv (test code = 1742-6) 62 U/L 5-50 H AST(SGOT) (test code = 9268394653) 49 U/L 13-40 H eGFR Calculation (Non-) (test code = 8390945378) mL/min/1.73m2 eGFR Calculation () (test code = 8424174657) mL/min/1.73m2 KRYSTLE (test code = KRYSTLE) Association [...] imaging tests). Lab Interpretation (test code = 33496-4) [facility] [id number] 03:23:00* Test Item Value Reference Range Interpretation Comme nts LIPASE (test code = [id number]) 317 U/L 0-220 H Lab Interpretation (test cod e = 22167-5) Abnormal [facility] with Mqvakjuakneu5597-46-98 03:21:00* Test Item Value Reference Range Interpretation Comme nts WBC (test code = 6690-2) See_Comment [Automated messa ge] The system which generated this result transmitted reference range: 4.20 - 10.70 10*3/?L. The reference range was not used to interpret this result as normal/abnormal. RBC (test code = 789-8) See_Comment [Automated messa ge] The system which generated this result transmitted reference range: 4.26 - 5.52 10*6/?L. The reference range was not used to interpret this result as normal/abnormal. HGB (test code = 718-7) 15.3 g/dL 12.2-16.4 HCT (test code = 4544-3) 42.9 % 38.4-49.3 MCV (test code = 787-2) 84.8 fL 81.7-95.6 MCH (test code = 785-6) 30.2 pg 26.1-32.7 MCHC (test code = 786-4) 35.7 g/dL 31.2-35 H RDW-SD (test code = 16467-9) 37.9 fL 38.5-51.6 L RDW-CV (test code = 788-0) 12.4 % 12.1-15.4 PLT (test code = 777-3) See_Comment [Automated messa ge] The system which generated this result transmitted reference range: 150 - 328 10*3/?L. The reference range was not used to interpret this result as normal/abnormal. MPV (test code = 02251-2) 9.7 fL 9.8-13 L NRBC/100 WBC (test code = 5789853681) See_Comment [Automated Biglion ssage] The system which generated this result transmitted reference range: 0.0 - 10.0 /100 WBCs. The reference range was not used to interpret this result as normal/abnormal. NRBC x10^3 (test code = 9392864336) <0.01 See_Comment [Automated messa ge] The system which generated this result transmitted reference range: 10*3/?L. The reference range was not used to interpret this result as normal/abnormal. GRAN MAT (NEUT) % (test code = 770-8) 36.7 % IMM GRAN % (test code = 4515733654) 0.10 % LYMPH % (test code = 736-9) 50.9 % MONO % (test code = 5905-5) 11.1 % EOS % (test code = 713-8) 0.8 % BASO % (test code = 706-2) 0.4 % GRAN MAT x10^3(ANC) (test code = 1464168793) 2.59 10*3/uL 1.99-6.95 IMM GRAN x10^3 (test code = 6625031720) <0.03 0-0.06 LYMPH x10^3 (test code = 731-0) 3.61 10*3/uL 1.09-3.23 H MONO x10^3 (test code = 742-7) 0.79 10*3/uL 0.36-1.02 EOS x10^3 (test code = 711-2) 0.06 10*3/uL 0.06-0.53 BASO x10^3 (test code = 704-7) 0.03 10*3/uL 0.01-0.09 Lab Interpretation (test code = 06309-2) Abnormal [facility] Notes Date/Time Note Provider Source 2023-07-23 07:15:00 [id number]:15:00 [facility] ([facility])EMERGENCY PROVIDER REPORTREPORT#:[id number] REPORT STATUS: SignedDATE:07/23/23 TIME: 714 PATIENT: NOAH PUTNAM UNIT #: [id number]#: [id number] ROOM/BED:AGE: 52 SEX: M PCP PHYS: DOES_NOT KNOWSERVICE AUTHOR: Tracy Hall MD R1 LOCATION: [facility] * ALL edits or amendments must be made on the electronic/computer document * Tracy Hall 07/23/23 0715:HPI-Abd Pain M 40 and Over Free Text HPI NotesFree Text HPI Notes52 year old male with reported PMH of chronic pancreatitis and PUD presents to the ED with a complaint of diffuse epigastric pain and burning sensation, postprandial nausea and vomiting for the last 3 days. Chart review showed that the patient was seen in [place] ED on 07/[address] AP was negative for gallbladder, biliary, pancreatic and GI disease. Patient sees a GI doctor at [facility] and is in the process of getting a c-scope and EGD. Denies chest pain, SOB, hematemesis, melena and hematochezia. GeneralInitial Greet Date/Time 07/23/23 05 Provider in TriageHPI Chief Complaint Abdominal pain, Nausea/vomiting/diarrheaPE General/Const No acute distress Respiratory/Chest No respiratory distress PresentationChief Complaint Abdominal pain, NauseaSudden in Onset? No Risk-Abd Pain M 40 and Over)( Abdominal Aortic Aneurysm No risk factors Review of Systems ROS StatementsAll systems rev neg except as marked. Focused Review of SystemsGIReports: Abdominal pain, Nausea, Vomiting. Past Medical History - AdultStated Complaint ABD PAIN, N/VAllergiesCoded Allergies:bee venom protein (honey bee) (Severe, THROAT SWELL 07/23/23) Home MedicationsActive ScriptsoxyCODONE/APAP (PERCOCET 5/325 MG) 1 TAB PO Q6H PRN PRN PAIN SCALE 7-10, SECOND LINE oxyCODONE/APAP (PERCOCET 5/325 MG) 1 TAB PO Q6H PRN PRN PAIN SCALE 7-10, SECOND LINE #24 TABS Prov: 07/02/23 Reported Medications[NORVASC] [AMLODIPINE] Calculated Suicide Risk (nurs) No riskAdditional Medical HistoryChronic pancreatitis Peptic ulcer diseaseAdditional Surgical HistoryLeft wrist surgerySmoking status for patients 13 years old or older: Never Smoker Physical Exam Vital SignsVital SignsFirst Documented: Result Date Time Pulse Ox 97 07/23 529 B/P 158/111 07/23 529 B/P Mean 126 07/23 529 O2 Delivery Room air 07/23 529 Temp 98.7 07/23 529 Pulse 86 07/23 529 Resp 20 07/23 529 Last Documented: Result Date Time Pulse Ox 98 07/23 945 B/P 146/89 07/23 945 B/P Mean 108 07/23 945 O2 Delivery Room air 07/23 945 Temp 98.6 07/23 945 Pulse 84 07/23 945 Resp 18 07/23 945 Review of Vital Signs Reviewed, Vital signs abnormal (htn) Focused PEGeneral/Const General/Const Awake, Alert, Well appearing, Cooperative, Not toxic appearing Distress/Hydration Distress mild. MS Head Head NormocephalicEyes Eyes Atraumatic, PERRLEars/Nose/Throat Ears/Nose/Throat Airway patent, Mucous membranes moist, Pharynx NLResp/Chest Respiratory/Chest Breath sounds NL, Breath sounds = bilat, No respiratory distress, No rales, No rhonchi, No wheezingCardiovascular Cardiovascular Heart rate NL, Regular rhythm, Heart sounds NL, Peripheral circulation NLAbdomen/GI Abdomen/GI Atraumatic, BS normoactive, No distention, No hernia, No palpable mass, No pulsatile mass Tenderness/Guarding/Rebound Tender epigastric, Tender diffuse. MS Back Back Inspection NL, Non-tender, No CVA tendernessNeurologic Neurologic Oriented X3, Speech NL, No motor deficits, No sensory deficits Interpretation Diagnostics Lab Results InterpretationResultsLaboratory Tests 07/23/23535:[Embedded Image Not Available]Laboratory Tests: 07/23 536 Chemistry Sodium (137 - 145 MMOL/L) 141 Potassium (3.5 - 5.1 MMOL/L) 3.6 Chloride (98 - 107 MMOL/L) 106 Carbon Dioxide (22 - 30 MMOL/L) 24 BUN (9 - 20 MG/DL) 15 Creatinine (0.66 - 1.25 MG/DL) 1.20 Glomerular Filtr Rate > 60 Glucose (74 - 106 MG/DL) 111 H Calcium (8.4 - 10.2 MG/DL) 9.5 Total Bilirubin (0.2 - 1.3 MG/DL) 0.9 Direct Bilirubin (0.0 - 0.3 MG/DL) 0.0 AST (17 - 59 UNITS/L) 29 ALT (0 - 49 UNITS/L) 23 Total Alk Phosphatase (38 - 126 UNITS/L) 57 Troponin I (0.012 - 0.033 NG/ML) 0.019 Total Protein (6.2 - 7.6 G/DL) 9.0 H Albumin (3.5 - 5.0 G/DL) 4.8 Lipase (23 - 300 UNITS/L) 94 Coagulation INR (0.86 - 1.14) 1.1 PT Patient/Control Mix (10.1 - 12.6 SECONDS) 12.5 Hematology WBC (3.8 - 9.8 K/MM3) 6.3 RBC (3.95 - 5.67 M/MM3) 5.30 Hgb (12.4 - 16.7 G/DL) 16.0 Hct (35.9 - 49.5 %) 45.7 MCV (81.7 - 96.1 fL) 86 MCH (27.6 - 33.2 pg) 30.2 MCHC (32.9 - 35.5 %) 35.0 RDW (12.1 - 15.2 %) 12.9 Plt Count (129 - 368 K/MM3) 233 Neut # (Auto) (2.0 - 7.6 K/mm3) 2.90 Lymph # (Auto) (1.0 - 3.8 K/mm3) 2.61 Beaver # (Auto) (0.1 - 0.8 K/mm3) 0.68 Eos # (Auto) (0.0 - 0.2 K/mm3) 0.04 Baso # (Auto) (0.0 - 0.2 K/mm3) 0.02 Nucleated RBCs # (Man) (0.0 - 0.1 K/mm3) 0.00 Urines Urine Color (YELLOW) YELLOW Urine Appearance (CLEAR) CLEAR Urine pH (5.0 - 9.0) 6.0 Ur Specific [place] (1.003 - 1.030) 1.025 Urine Protein (NEGATIVE MG/DL) 30 H Urine Glucose (UA) (NORMAL MG/DL) NORMAL Urine Ketones (NEGATIVE MG/DL) 5 Urine Blood (NEGATIVE Lc/mm3) 10 H Urine Nitrite (NEGATIVE) NEGATIVE Urine Bilirubin (NEGATIVE MG/DL) NEGATIVE Urine Urobilinogen (NORMAL MG/DL) 4 H Ur Leukocyte Esterase (NEGATIVE /mm3) NEGATIVE Urine RBC (0 - 3 RBC/HPF) 3-5 H Urine WBC (0 - 5 WBC/HPF) 0-3 Ur Epithelial Cells (FEW EPI/HPF) RARE Urine Bacteria (NONE) FEW Urine Mucus (NONE #/LPF) MODERATE H Recent Impressions:CAT SCAN - CT ABD PELVIS W/CONT 07/23 0750 Report Impression - Status: SIGNED Entered: 07/23/202331 IMPRESSION: 1. No acute abnormality. Impression By: [email or web address] - Kiara Meza MD Re-Evaluation MDM Free Text MDM NotesFree Text MDM NotesPatient appears to be in moderate distress, nontoxic in appearance. No leukocytosis, no transaminitis, lipase within normal limits. UA was negativefor UTI. CT AP with contrast showed normal pancreas, normal gallbladder with no dilation, no SBO or appendicitis. )( Re-Evaluation/Progress #1Text/Dict NotePatient received IV fluids, Zofran, morphine for pain relief. Patient reports noimprovement in pain after morphine.Patient is hemodynamically stable at this time, with no evidence of acute disease. Patient is clear for discharge at this time, instructed to follow-up with his PCP, GI doctor and urologist. Patient reports talking with his GI doctor's office while in the ED, and will go see [facility] in [place] after discharge. We will send Norflex, Bentyl, and Toradol to his home pharmacy. Instructed to return to the ED if symptoms worsen. Patient reports understandingand agrees with the treatment plan.Time of Re-Eval 09)( Re-Eval Status Unchanged ED CourseMedication(s) OrderedMedication(s) Ordered:Central Nervous System Agents Sig/Shirin Start time Last Medication Dose Route Stop Time Status Admin Morphine Sulfate 4 MG X1ED STA 07/23 531 DC 07/23 IV 07/23 0532 0546 Diagnostic Agents Sig/Shirin Start time Last Medication Dose Route Stop Time Status Admin Iopamidol 0 .STK-MED ONE 07/23 0737 DC 07/23 IV 0812 Electrolytic, Caloric, And Daryn Sig/Shirin Start time Last Medication Dose Route Stop Time Status Admin Sodium Chloride 1,000 ML X1ED ONE 07/23 535 DC 07/23 IV 07/23 0635 0550 Gastrointestinal Drugs Sig/Shirin Start time Last Medication Dose Route Stop Time Status Admin Ondansetron HCl 4 MG X1ED PRN PRN 07/23 535 DC 07/23 IV 07/24 0536 0546 Differential Diagnosis)( Differential Diagnosis Abscess, Acute abdominal pain, Appendicitis, Bladder outlet obstruct, Bowel obstruction, Cholangitis, Cholecystitis, Cholelithiasis, Diverticular disease, GERD, Inflam bowel disease, Pancreatitis, Peptic ulcer disease, Trauma abdominal, Urinary retention, Urinary tract infection Patient Discharge Departure Vital Signs/ConditionVital SignsFirst Documented: Result Date Time Pulse Ox 97 07/23 529 B/P 158/111 07/23 529 B/P Mean 126 07/23 529 O2 Delivery Room air 07/23 529 Temp 98.7 07/23 529 Pulse 86 07/23 529 Resp 20 07/23 529 Last Documented: Result Date Time Pulse Ox 98 07/23 945 B/P 146/89 07/23 945 B/P Mean 108 07/23 945 O2 Delivery Room air 07/23 945 Temp 98.6 07/23 945 Pulse 84 07/23 945 Resp 18 07/23 945 All vital signs available at the time of this entry have been reviewed. Clinical ImpressionClinical ImpressionPrimary Impression: Abdominal pain Disposition DecisionDischarge )( Discharged to Home Yes )( Time 09 )( Date 07/23/23 Discharge/Care PlanCounseled Regarding Diagnosis, Lab results, Imaging studies, Prescriptions, Needfor follow-up, When to return to ED(Auto) PrescriptionsCurrent Visit ScriptsORPHENADRINE ER (NORFLEX) 100 MG PO BID 10 Days #20 TABS DICYCLOMINE (BENTYL) 10 MG PO Q6H PRN PRN ABDOMINAL PAIN/CRAMPING DICYCLOMINE (BENTYL) 10 MG PO Q6H PRN PRN ABDOMINAL PAIN/CRAMPING #30 CAPS KETOROLAC (TORADOL) 10 MG PO Q6H PRN PRN PAIN KETOROLAC (TORADOL) 10 MG PO Q6H PRN PRN PAIN #20 TABS Prescriptions Reviewed Risks, Benefits, Alternative treatmentPatient Instructions Abdominal PainDeparture FormsWORK/SCHOOL EXCUSE VARIABLEWORK/SCHOOL EXCUSE-CAREGIVER Jessie Paul 07/23/23916:Patient Discharge Departure Discharge/Care PlanReferralsProvider Referral: Karina Nascimento MD Address: [address] [place] [address] Provider Referral: Peter Pérez MD Address: [address] [place] [address] Provider Referral: Adebayo Bagley NP Address: [address] [place] [address] Provider Referral: Carola Brooks JUDGE Address: [address] [place] [address] Provider Referral: Mary Ibarra MD Address: [address] [place] [address] Provider Referral: Woody Roman JUDGE Address: [address] [facility] [address] [place] [address] Supervising Physician Note Resident Saw PtThis patient was seen by a resident. I have personally seen the patient, performed the critical or rodriguez portions of the service, and participated in the management of the patient. I have reviewed and agree with the resident's note, and I have reviewed all labs, ECGs, and imaging studies or reports. I agree withthis resident's findings, exam and plan.This a 52-year-old male history of chronic pancreatitis comes in complaining of epigastric abdominal pain burning in nature nonradiating nonmigrating with nausea for 4 days. Review of systems otherwise negative. Physical exam significant for tenderness to epigastrium otherwise within normal limits. CBC CMP CT scan abdomen pelvis independently to reviewed visualized by me no acute findings to account for patient's abdominal pain. Patient called his water rights specialist for which she is going to another hospital but the GI works at to be admitted for further care and evaluation. Discussed no indication for admission at this facility which patient understands and agrees with plan. Patient is discharged home with analgesia antiemetics at 1039 at 1048RPT #:[id number] OF REPORTEDEmergency department cqozja0977-49-91N84:15:00Z.[id number] for patient pkxnYKEEYGXSJECGCN4860-65-61Z52:39:44 [facility] 2023-07-23 05:32:00 [id number]:32:00 [facility] ([facility])EMERGENCY PROVIDER REPORTREPORT#:[id number] REPORT STATUS: SignedDATE:07/23/23 TIME: 0532 PATIENT: NOAH PUTNAM UNIT #: [id number]#: [id number] ROOM/BED:AGE: 52 SEX: M PCP PHYS:SERVICE DT: AUTHOR: Rita Ashford LOCATION: [facility] * ALL edits or amendments must be made on the electronic/computer document * Provider in Triage - Adult Provider in TriageInitial Greet Date/Time 07/23/23 05 Austin FunesI have greeted and performed a focused rapid initial assessment of this patient.A comprehensive ED assessment and evaluation of the patient, analysis of all test results, and completion of the medical decision-making process will be conducted by additional ED providers. HPI Chief Complaint Abdominal pain, Nausea/vomiting/diarrheaPE General/Const No acute distress Respiratory/Chest No respiratory distress MSE CompleteThe medical screening examination is complete. The patient does not need immediate medical attention. There are no acute symptoms of sufficient severity that the patient could reasonably be expected to develop serious impairment or dysfunction of body functions or organs. Free Text PIT NotesFree Text PIT Jciwe80-tlgn-rew male with a past medical history of chronic pancreatitis presents the emergency room with diffuse abdominal pain and burning that started a few days ago. PMH-Provider in TriageStated Complaint ABD PAIN, N/VAllergiesCoded Allergies:bee venom protein (honey bee) (Severe, THROAT SWELL 07/23/23) Home MedicationsActive ScriptsoxyCODONE/APAP (PERCOCET 5/325 MG) 1 TAB PO Q6H PRN PRN PAIN SCALE 7-10, SECOND LINE oxyCODONE/APAP (PERCOCET 5/325 MG) 1 TAB PO Q6H PRN PRN PAIN SCALE 7-10, SECOND LINE #24 TABS Prov: 07/02/23 Reported Medications[NORVASC] [AMLODIPINE] Additional Medical HistoryChronic pancreatitis Peptic ulcer diseaseAdditional Surgical HistoryLeft wrist surgery at 0533RPT #:[id number] OF REPORTEDEmergency department ilozyy1513-25-16Z93:32:00Z.[id number] for patient [id number]:33:39 [facility] 2023-07-01 23:26:00 [id number] 1 [place], [place] PATIENT NAME: ONAH PUTNAM ADMIT DATE: 07/01/23ACCOUNT NO: [id number] ROOM NO: AGE: 52 REPORT TYPE: ELECTROCARDIOGRAM SEX: M : 74ADMITTING PHYSICIAN: ATTENDING PHYSICIAN:Jessie Gleason DO Order:[id number] Reason : abdominal pain Test Date/Time Stamp:ThuJul 01 2023 23:26:35Blood Pressure : / mmHGVent. Rate : 088 BPM Atrial Rate : 088 BPM P-R Int : 166 ms QRS Dur : 076 ms QT Int : 346 ms P-R-T Axes : 062 032 018 degrees QTc Int : 418 ms Sinus rhythm with frequent premature ventricular complexesNonspecific T wave abnormalityAbnormal ECGNo previous ECGs availableConfirmed by JESSIE GLEASON DO ([id number]), associate entertainment editor MARCIA GALVEZ ([id number]) on07/20/2023 3:03:25 PM Referred By: Self Referred Confirmed by:JESSIE GLEASON DO at 1503 PATIENT NAME: NOAH PUTNAM .[id number] for patient [id number]:04:05 [facility] 2023-07-01 23:22:00 [id number]:22:00 [facility] ([facility] PROVIDER REPORTREPORT#:[id number] REPORT STATUS: SignedDATE:07/01/23 TIME: 2321 PATIENT: NOAH PUTNAM UNIT #: [id number]#: [id number] ROOM/BED:AGE: 52 SEX: M PCP PHYS: Undefined ProviderSERVICE AUTHOR: Jessie Gleason DO * ALL edits or amendments must be made on the electronic/computer document * HPI-Abd Pain M 40 and Over GeneralConfirmed Patient YesPatient Type New patientInitial Greet Date/Time 07/01/232301 PresentationChief Complaint Abdominal painSudden in Onset? No Free Text HPI NotesFree Text HPI Bvtoe52-ibku-ftb male presents with complaint of abdominal pain. Patient states thathe has been having abdominal pain since January. Patient states that at that time he was diagnosed with chronic pancreatitis. Patient states that he has been referred to a specialist and states that he has a follow-up appointment on the . Patient states that for the past 2 days his abdominal pain has been worsening. Patient states that [facility] with tramadol after some IV fluids. Patient states that he was contacted again from primary RN directed to this emergency room as he might require admission. Patient indicates his abdominal pain is across his entire abdomen. Patient reports having loose oily stools. Patient states that his abdominal pain is worse with sitting up and improved with lying on his side. Patient states that he had a decrease in appetite and he went anything due to the pain. Patient does report being able to tolerate p.o. hydration and states that he is drinking water, apple juice or orange juice. Patient states that drinking fluids does not cause any pain. Review of Systems ROS StatementsAll systems rev neg except as marked. Focused Review of SystemsGIReports: Abdominal pain, Anorexia, Diarrhea. Past Medical History - AdultStated Complaint ABDOMINAL PAIN DIARRHEA WEAK DIZZYAllergiesCoded Allergies:No Known Allergies (04/19/18) Home MedicationsReported Medications[NORVASC] [AMLODIPINE] Review of Nursing Notes Rev avail, and agreeAdditional Medical HistoryChronic pancreatitisPeptic ulcer diseaseAdditional Surgical HistoryLeft wrist surgerySmoking status for patients 13 years old or older: Never Smoker Physical Exam Vital SignsVital SignsFirst Documented: Result Date Time Pulse Ox 98 07/01 2256 B/P 140/110 07/01 2256 B/P Mean 120 07/01 2256 O2 Delivery Room air 07/01 2256 Temp 98.1 07/01 2256 Pulse 89 07/01 2256 Resp 18 07/01 2256 Last Documented: Result Date Time Pulse Ox 98 07/01 2256 B/P 140/110 07/01 2256 B/P Mean 120 07/01 2256 O2 Delivery Room air 07/01 2256 Temp 98.1 07/01 2256 Pulse 89 07/01 2256 Resp 18 07/01 2256 Review of Vital Signs Reviewed Focused PEGeneral/Const General/Const Awake, AlertMS Head Head Atraumatic, NormocephalicEyes Eyes PERRL, EOMIEars/Nose/Throat Ears/Nose/Throat Airway patent, Mucous membranes moistResp/Chest Respiratory/Chest Breath sounds = bilat, No respiratory distressCardiovascular Cardiovascular Regular rhythm, Heart sounds NLAbdomen/GI Abdomen/GI Soft, No guarding, No rebound Text/Dict NotesVoluntary guarding, diffuse tenderness to palpationMS Back Back AtraumaticNeurologic Neurologic Oriented X3, Speech NL, No motor deficits, No sensory deficits, CNII - XII intact, Cerebellar NL, Memory NL, Gait NL Interpretation Diagnostics Lab Results InterpretationResultsLaboratory Tests 07/01/232302:[Embedded Image Not Available]Laboratory Tests: 07/01 2303 Chemistry Sodium (133 - 145 MMOL/L) 136 Potassium (3.6 - 5.2 MMOL/L) 3.3 L Chloride (100 - 108 MMOL/L) 100 Carbon Dioxide (22 - 32 MMOL/L) 23 BUN (6 - 20 MG/DL) 14 Creatinine (0.60 - 1.00 MG/DL) 1.12 H Estimated GFR (MDRD) (56 - 130) 80 Glucose (65 - 99 MG/DL) 167 H Calcium (8.7 - 10.5 MG/DL) 9.3 Total Bilirubin (0.0 - 1.0 MG/DL) 1.0 Direct Bilirubin (0.0 - 0.3 MG/DL) 0.2 Indirect Bilirubin (0.0 - 0.7 MG/DL) 0.8 H AST (15 - 37 Units/L) 18 ALT (30 - 65 Units/L) 25 L Alkaline Phosphatase (50 - 136 Units/L) 60 Troponin I High Sens (< 76 ng/L) 5 Total Protein (6.4 - 8.2 G/DL) 8.2 Albumin (3.4 - 5.0 G/DL) 4.2 Globulin (1.5 - 3.8 G/DL) 4.0 H Albumin/Globulin Ratio (1.1 - 2.2) 1.1 Lipase (16 - 77 U/L) 259 H Hematology WBC (4.80 - 10.80 x10 3/uL) 9.01 RBC (4.7 - 6.1 x10 6/uL) 5.38 Hgb (14.0 - 17.0 G/DL) 16.0 Hct (42 - 52 %) 45.9 MCV (80 - 94 FL) 85.3 MCH (27 - 31 PG) 29.7 MCHC (33 - 37 G/DL) 34.9 RDW Coeff of Shelbi (11.5 - 14.5 %) 12.7 Plt Count (150 - 450 x10 3/uL) 232 MPV (7.4 - 10.4 FL) 9.3 Neut % (Auto) (42 - 86 %) 51.0 Lymph % (Auto) (24 - 44 %) 41.1 Beaver % (Auto) (0.0 - 4.0 %) 7.4 H Eos % (Auto) (0.0 - 2.7 %) 0.3 Baso % (Auto) (0.0 - 0.5 %) 0.2 Eos # (Auto) (0.0 - 0.5 x10 3/uL) 0.03 Baso # (Auto) (0.0 - 0.2 x10 3/uL) 0.02 Absolute Neuts (auto) (1.8 - 7.7 x10 3/uL) 4.59 Absolute Lymphs (auto) (1.0 - 4.8 x10 3/uL) 3.70 Absolute Monos (auto) (0.0 - 0.8 x10 3/uL) 0.67 Recent Impressions:CAT SCAN - CT ABD PELVIS W/CONT 07/01 2340 Report Impression - Status: SIGNED Entered: 07/02/2023 0009 IMPRESSION: No acute findings in the abdomen or pelvis. Mildly enlarged prostate with a nodular component protruding into thebladder base. Correlation with PSA is recommended.Impression By: [email or web address] - Jennifer Bass MD ECG #1 InterpretationText/Dict NoteSinus rhythm with frequent PVCsNonspecific T wave abnormalityDate 07/01/23Time 2330Interpreted by ED physicianNL ECG Interpretation Normal rate, Normal sinus rhythm, No acute ischemic changes, No STEMI, Normal QRS, Normal ST waves, Normal axis, Normal intervalsRate 88 Re-Evaluation [facility] )( Re-Evaluation/Progress #1Text/Dict NotePatient is reporting improvement of his abdominal pain after treatment in the ED. Patient's labs are relatively unremarkable other than a mildly elevated lipase. Patient CT unremarkable other than enlarged prostate. Patient's reports a known history of enlarged prostate. Patient currently has a repeat follow-up with a specialist regarding his pancreatitis on the of this month. At this time patient does not appear torequire inpatient treatment as his pain is not out of proportion to exam. Patient is tolerating p.o. hydration. Additionally patient reports improvement of his symptoms after treatment in the ED. Patient is currently taking Protonix for his history of peptic ulcer disease andhe has a prescription for antiemetics. Patient was recently prescribed tramadoland states that does not help with his pain. Patient directed to stop taking the tramadol and will prescribe stronger analgesics. Patient encouraged to keephis follow-up appointment next week. Patient verbalized understand directions.)( Re-Eval Status Improved ED CourseMedication(s) OrderedMedication(s) Ordered:Central Nervous System Agents Sig/Shirin Start time Last Medication Dose Route Stop Time Status Admin Morphine Sulfate 4 MG X1ED STA 07/01 2322 DC 07/01 IV 07/01 2323 2327 Diagnostic Agents Sig/Shirin Start time Last Medication Dose Route Stop Time Status Admin Iopamidol 0 .STK-MED ONE 07/01 233 DC 07/01 IV 2343 Iopamidol 0 .STK-MED ONE 07/01 2330 DCr 07/01 IV 2344 Iopamidol 0 .STK-MED ONE 07/01 2330 DCr 07/01 IV 2344 Electrolytic, Caloric, And Daryn Sig/Shirin Start time Last Medication Dose Route Stop Time Status Admin Potassium Chloride 40 MEQ X1ED STA 07/02 0018 DC 07/02 PO 07/02 0019 0032 Gastrointestinal Drugs Sig/Shirin Start time Last Medication Dose Route Stop Time Status Admin Ondansetron HCl 4 MG ONCE PRN 07/01 2325 DC 07/01 IV 232 Differential Diagnosis)( Differential Diagnosis Appendicitis, Constipation, GERD, Pancreatitis Patient Discharge Departure Vital Signs/ConditionVital SignsFirst Documented: Result Date Time Pulse Ox 98 07/01 2256 B/P 140/110 07/01 2256 B/P Mean 120 07/01 2256 O2 Delivery Room air 07/01 2256 Temp 98.1 07/01 2256 Pulse 89 07/01 2256 Resp 18 07/01 2256 Last Documented: Result Date Time Pulse Ox 98 07/01 2256 B/P 140/110 07/01 2256 B/P Mean 120 07/01 2256 O2 Delivery Room air 07/01 2256 Temp 98.1 07/01 2256 Pulse 89 07/01 2256 Resp 18 07/01 2256 All vital signs available at the time of this entry have been reviewed. Clinical ImpressionClinical ImpressionPrimary Impression: Chronic pancreatitis Disposition DecisionDischarge )( Discharged to Home Yes )( Time 0054 )( Date 07/02/23 Discharge/Care PlanCounseled Regarding Diagnosis, Lab results, Imaging studies, Prescriptions, Needfor follow-up, When to return to [facility] Drug Database Reviewed Yes(Auto) PrescriptionsCurrent Visit ScriptsHYDROcodone/APAP (HYDROcodone/APAP 10/325) 1 TAB PO Q8H PRN PRN PAIN SCALE 7-10,SECOND LINE HYDROcodone/APAP (HYDROcodone/APAP 10/325) 1 TAB PO Q8H PRN PRN PAIN SCALE 7-10, SECOND LINE #21 TABS Prescriptions Reviewed Risks, Benefits, Alternative treatmentPatient Instructions ED Pancreatitis Discharge NoteI have spoken with the patient and/or caregivers. I have explained the patient'scondition, diagnoses and treatment plan based on the information available to meat this time. I have answered the patient's and/or caregiver's questions and addressed any concerns. The patient and/or caregivers have as good an understanding of the patient's diagnosis, condition and treatment plan as can beexpected at this point. The vital signs have been stable. The patient's condition is stable and appropriate for discharge from the emergency department. The patient will pursue further outpatient evaluation with the primary care physician or other designated or consulting physician as outlined in the discharge instructions. The patient and/or caregivers are agreeable to this planof care and follow-up instructions have been explained in detail. The patient and/or caregivers have received these instructions in written format and have expressed an understanding of the discharge instructions. The patient and/or caregivers are aware that any significant change in condition or worsening of symptoms should prompt an immediate return to this or the closest emergency department or a call to 911. Quality MeasuresBP F/U for HTN F/u with PCP/other docTobacco Screening/Cessation Denies tobacco use at 0109RPT #:[id number] OF REPORTBrownfield [facility] department pzvixs5565-82-10Y77:22:00D.[id number] -0941AVAvailable for patient ynhvGMIASLAHJLRBAN6966-28-11M62:09:42 [facility] 2023-05-20 15:08:22 8072-01-62F82:08:22 Chief Complaint Patient presents with Consult[place] [address]-1Ghbln OjjeME2856-48-27L63:10:32Nurse NoteTXT1.2.840.834194.1.13.131.2.7.2.72 7879|[id number] for patient nttv73903-3Heykp NoteLNAurora [facility]27[facility] NorthwestQFETZVWGOMFSKIIVRD9809505421DJXJ97 06-06-06T15:10:321.2.840.032343.1.72.3. 15|1.2.840.148605.1.13.131.2.7.2.585201 _[id number] [facility] 2023-05-07 23:22:46 4263-92-16U63:22:46 Discharge instructions reviewed with patient. Follow up care discussed. All questions answered by RN. Patient ambulatory to [facility]. Patient in possession of all belongings. RR even and unlabored, VSS, NAD noted. 75778-1Gikccimmp department UfqcAQ0067-45-17C76:23:02[facility] NoteTXT1.2.840.971982.1.13.104.2.7.2.72 7879|[id number] for patient [id number] Gay RN[id number] TLSNRFPIAYBDRAESWRS0711-26-03M90:23:021 .2.840.838523.1.72.3.15|1.2.840.073816. 1.13.104.2.7.2.727879_[id number] Steffanie Easley RN [facility] 2023-05-07 23:01:52 1427-42-44U40:01:52 DC hold for fluid admin. 48230-7Nkvrzjjco[address] [place] [address] JttfZJ2310-69-85Z85:02:00[facility] NoteTXT1.2.840.448352.1.13.104.2.7.2.72 7879|[id number] for patient egar15757-2BoawUNZCTFSEXC[id number] UEMSEPLBFEPYQNZAWWZ2091-59-07P57:02:001 .2.840.101179.1.72.3.15|1.2.840.039956. 1.13.104.2.7.2.727879_[id number] [facility] 2023-05-07 22:51:08 2235-24-99Q88:51:08 This RN chaperoned DO for rectal exam. 24713-3Fywmyrdue[address] [place] [address] PdgkXI9098-91-70E55:51:22[facility] department NoteTXT1.2.840.688823.1.13.104.2.7.2.72 7879|[id number] for patient mcbf13375-5ItcfAONRVRYKNQ[address] Zu[id number] ACTALAFLJQDBOANCKDK0597-14-18P36:51:221 .2.840.019596.1.72.3.15|1.2.840.377304. 1.13.104.2.7.2.727879_[id number] [facility] 2023-05-07 20:30:00 7154-57-92M74:30:00 Noah Putnam is a 52 year old male who presents to the ER with a cc of abdominal pain and blood in stool. Patient reports he has been not feeling well for the past week to two. Patient reports abdominal pain started a few days ago and he had some nausea yesterday. Patient reports the blood in stool started today. Patient denies previous constipation or diarrhea. Patient reports blood is bright red and transitioned to slightly maroon throughout the day today. Patient reports he was seen at the [facility] a few days ago and treated for dehydration. Patient reports PMH of hep c, states last test was negative, HTN and takes amlodipine and lisinopril, states compliance. Patient states he also takes asprin but denies additional blood thinner use. Patient states he was recently diagnosed with an "18mm mass in between his bladder and prostate." Patient reports he has an appointment with a specialist but has not gone to it yet. Patient resting in bed. Provided with blanket. Denies additional needs at this time. Bed locked and in lowest position. Call light within reach. RR even and unlabored. VSS. NAD noted. 25928-9Vaavujzmx department SwyrCC5362-57-00T69:50:18[facility] department NoteTXT1.2.840.546043.1.13.104.2.7.2.72 7879|[id number] for patient ospy52544-2OgqvQZIGDYZLER[id number] XPXLUWNTDWNDBDEARBX6037-08-60B50:50:181 .2.840.975673.1.72.3.15|1.2.840.119878. 1.13.104.2.7.2.727879_[id number] [facility] 2023-05-07 17:35:38 5010-93-86W96:35:38 Noah Putnam is a 52 year old male presenting to ED with c/o abd pain. Patient reports hx of pancreatitis. Patient reports began having blood in stool today. Patient to green chairs due to ED saturation 23565-1Exiisizgo department Triage jgxqHW2267-64-40T11:36:16[facility] department Triage noteTXT1.2.840.872994.1.13.104.2.7.2.72 7879|[id number] for patient fviq09095-5Ntsxjrhjy department [id number] L Holmes RN[id number] TRALFMQJZBNLEXXIJKZ3881-46-55O16:36:161 .2.840.067358.1.72.3.15|1.2.840.723741. 1.13.104.2.7.2.727879_[id number] Helene Newell RN [facility] 2023-05-02 00:32:03 6249-14-28O07:32:03 DC instructions and prescriptions for protonix and reglan reviewed with patient. He will fill prescriptions and take them as directed. He will follow up with his PCP as directed. He will increase his oral intake of fluids to maintain hydration. He will return to the ED if his symptoms persist or worsen. He was Dc'd ambulatory-alert and in no distress. 66541-4Inyzjqhww department VtvuKT0649-19-82W54:34:46[facility] NoteTXT1.2.840.690853.1.13.104.2.7.2.72 7879|[id number] for patient [id number] M Owens RN[id number] AGPLIQUWTVZBSLUQHUK9121-20-87L89:34:461 .2.840.326298.1.72.3.15|1.2.840.915073. 1.13.104.2.7.2.727879_[id number] Marcelo Tsai RN [facility] 2023-05-01 21:28:00 3603-13-60O85:28:00 Patient states: "I came here last week for dehydration and I think it's the same thing now. I'm drinking fluids and keeping myself hydrated but since 3 days I feel weak, sweating more, and my body is cramping. I also vomited 8x today. I worked all day out in the sun today." 65865-7Wgvszvhfu department Triage fgybRL6263-98-36K85:38:40[facility] Triage noteTXT1.2.840.186913.1.13.104.2.7.2.72 7879|[id number] for patient iexk01374-5Rbmduyvto department [id number] C Heredia RNUT[id number] WMEZWBGKCLMIJSAGMKL4587-94-57L97:38:401 .2.840.515757.1.72.3.15|1.2.840.581921. 1.13.104.2.7.2.727879_[id number] Lelo Carbajal RN [facility] 2023-04-22 13:03:22 0723-84-92M89:03:22 Pt given printed and verbal discharge instructions regarding abd pain, encouraged hydration,Prescriptions providedDiscussed ibuprofen and to take with food to avoid GI distress, alternate with Tylenol to help with pain and/or feverDiscussed nedication side affects and to avoid driving/operating machinery/or engaging in activities requiring alertness while taking.Pt verbalized understanding of instructions,pt encouraged to follow up with pcp and or specialistAdvised to seek medical attention for new/prolonged/worsening of symptoms,No adverse reaction to meds given in ER noted upon dischargePIV d'cd, dressing to site, catheter in tact.Awake, alert oriented, resp reg unlabored, skin w/d, pt leaving in no apparent distress, 69667-5Ahktgzgdj department MzocDB6692-17-82V48:04:12Emergency department NoteTXT1.2.840.814026.1.13.104.2.7.2.72 7879|[id number] for patient [id number] M Crawford RNUT[address] BivfAumffstdiSqkrbxhntBVMV6212327905TFY GAMLLRURICWOBISEXDM5545-93-86I26:04:121 .2.840.880122.1.72.3.15|1.2.840.384771. 1.13.104.2.7.2.727879_[id number] Jacki Rodriguez RN [facility] 2023-04-22 10:35:21 8406-69-50K83:35:21 Patient ate some potatoes from meal tray, states stomach began to cramp. Patient provided juice, states that his boss is going to being him some food that he will also try but states stomach is cramping. 23447-4Msjbbiakj department ZwtjEU9818-01-71G38:36:25[facility] NoteTXT1.2.840.889423.1.13.104.2.7.2.72 7879|[id number] for patient [id number] M Rivera [id number] OHMDCCCWXHYRENOZUGH7050-64-54M72:36:251 .2.840.813410.1.72.3.15|1.2.840.798871. 1.13.104.2.7.2.727879_[id number] Caty Pang [facility] 2023-04-22 10:28:09 8534-59-07Y44:28:09 Patient provided meal tray. [address]641-9Hpnixlszz[address] DqkoOP1050-97-11D31:28:20[facility] NoteTXT1.2.840.286971.1.13.104.2.7.2.72 7879|[id number] for patient yhjn34677-5RpsxTZJEMHAMER[id number] VOIDCEUEHXYLCVONBIP2369-53-52R20:28:201 .2.840.702644.1.72.3.15|1.2.840.306764. 1.13.104.2.7.2.727879_[id number] [facility] 2023-04-22 10:18:30 0802-07-97A87:18:30 Patient encouraged to eat, advised of plan of care. 62456-6Nxgehidkk[address] DgkmUH5717-34-92J15:19:08[facility] NoteTXT1.2.840.574454.1.13.104.2.7.2.72 7879|[id number] for patient qkaf11404-4FysaJNVOXVLMRX[id number] BNEGMVTZQKGEQSVPPIF5623-71-95T59:19:081 .2.840.406757.1.72.3.15|1.2.840.392142. 1.13.104.2.7.2.727879_[id number] [facility] 2023-04-22 06:30:24 6008-73-40I02:30:24 Second liter of fluids completed, pt states he is still unable to urinate, RN gave pt a urinal and encouraged pt to try, pt stated that he will but he does not feel like going yet. [address]45-3Aossvasgm[address] IaoxVZ0912-56-91O27:38:32[facility] NoteTXT1.2.840.832914.1.13.104.2.7.2.72 7879|[id number] for patient zbdg17399-4ZphyVY689383358Aubish L Williams [id number] LXGSUPCHBQECGSSJKBS0469-92-94E88:38:321 .2.840.573737.1.72.3.15|1.2.840.456186. 1.13.104.2.7.2.727879_[id number] Carol Siddiqui RN [facility] 2023-04-22 05:20:00 7225-56-13C81:20:00 Pt walked to the bathroom, cannot void. Provider informed, orders received 13962-4Xltbelqgs department JamnLP5587-69-78P31:54:56[facility] NoteTXT1.2.840.758363.1.13.104.2.7.2.72 7879|[id number] for patient xxhp68531-5YzztGLJCNIXODK[address] Nu[id number] UMLMDWQCQLSPZKXATKZ5677-00-42U35:54:561 .2.840.179806.1.72.3.15|1.2.840.445795. 1.13.104.2.7.2.727879_[id number] [facility] 2023-04-22 03:56:00 0047-18-21D29:56:00 CC: Pt states he was working in the heat yesterday and started feeling dizzy, nauseated, having cramps. He states that he has vomited clear liquid several times since yesterday morning, having abdominal cramping, and having headache. x since 1000 yesterday. He states he hasn't been able to urinate since 1000 despite drinking water. PMHx: HTN, chronic pancreatitisAwake, alert, oriented, resp reg unlabored, skin warm, color appropriate for race, moves all ext without difficulty, amb with steady gait 74336-4Qkmpbzdle department Triage mvpnMH5920-79-85K65:58:39Emergency department Triage noteTXT1.2.840.225973.1.13.104.2.7.2.72 7879|[id number] for patient bjaf71749-7Ydrzuwyne department [id number] R Shehadeh RNUT[address] Iafv[id number] LJBONXAURIDTVHAVVJB1759-33-38U28:58:391 .2.840.332930.1.72.3.15|1.2.840.797768. 1.13.104.2.7.2.727879_[id number] Carol Wu RN [facility] 2023-04-22 03:50:00 3166-75-63F46:50:00 Patient Care assumed at shift change. Off-going Physician: Dioneime of Transfer of Care: 7:46 AMSummary: Noah Putnam is a 52 year old male presenting with chief complaint of cramping, headaches, not urinating.He was found to have significant JAQUELINE suspected to be very dehydrated. Given 3L bolus of fluids and only now urinated. Pending prior to disposition: Labs (urine)Current interventions:Medications NaCl 0.9% (NS) IV infusion 1,000 mL (0 mL Intravenous Stopped 04/22/23 0754) NaCl 0.9% (NS) bolus infusion 1,000 mL (0 mL IV Infusion Stopped 04/22/23 0528) metoclopramide HCl (REGLAN) injection 10 mg (10 mg Slow IV Push Given 04/22/23420) ketorolac (TORADOL) injection 30 mg (30 mg Slow IV Push Given 04/22/23420) diphenhydrAMINE (BENADRYL) injection 25 mg (25 mg Slow IV Push Given 04/22/23420) NaCl 0.9% (NS) bolus infusion 1,000 mL (0 mL IV Infusion Stopped 04/22/23 0630) maalox:diphenhydrAMINE:lidocaine 2 % viscous 1:1:1 (FIRST-MOUTHWASH BLM) oral suspension 15 mL (15 mL Oral Given 04/22/23 3377) NaCl 0.9% (NS) bolus infusion 500 mL (500 mL IV Infusion New Bag 04/22/23 8507) haloperidol lactate (HALDOL) injection 2.5 mg (2.5 mg Intravenous Given 04/22/23 1101) iopamidol (ISOVUE 370-500 mL) injection 70 mL (70 mL Intravenous Given 04/22/23 1121) Results:Labs Reviewed CBC WITH DIFF - Abnormal; Notable for the following components: Result Value RBC 5.60 (*) HGB 17.2 (*) MCHC 35.8 (*) MPV 9.6 (*) LYMPH x10^3 3.70 (*) All other components within normal limits COMP. METABOLIC PANEL (34843) - Abnormal; Notable for the following components: BUN 24 (*) GLUCOSE 114 (*) CREATININE 1.42 (*) T PROTEIN 9.2 (*) All other components within normal limits Narrative: Association of Glomerular Filtration Rate (GFR) and Staging of Kidney Disease*+ +------ + --+| GFR (mL/min/1.73 m2) | With Kidney Damage | Without Kidney Damage+ +-------- + +| >90 | Stage one | Normal + + -------+ +| 60-89 | Stage two | Decreased GFR + + -------+ +| 30-59 | Stage three | Stage three + + -------+ +| 15-29 | Stage four | Stage four + + -------+ +| <15 (or dialysis) | Stage five | Stage five + + -------+ +*Each stage assumes the associated GFR level has been in effect for at least three months. Stages 1 to 5, with or without kidney disease, indicate chronic kidney disease.Notes: Determination of stages one and two (with eGFR >59mL/min/1.73 m2) requires estimation of kidney damage for at least three months as defined by structural or functional abnormalities of the kidney, manifested by either:Pathological abnormalities or Markers of kidney damage (including abnormalities in the composition of the blood or urine or abnormalities in imaging tests). URINALYSIS - Abnormal; Notable for the following components: APPEARANCE Hazy (*) SP GRAVITY 1.031 (*) MUCOUS Marked (*) All other components within normal limits BASIC METABOLIC PANEL (NA, K, CL, CO2, GLUCOSE, BUN, CREATININE, CA) - Abnormal; Notable for the following components: CREATININE 1.26 (*) CALCIUM 8.3 (*) All other components within normal limits Narrative: Association of Glomerular Filtration Rate (GFR) and Staging of Kidney Disease*+ +------ + --+| GFR (mL/min/1.73 m2) | With Kidney Damage | Without Kidney Damage+ +-------- + +| >90 | Stage one | Normal + + -------+ +| 60-89 | Stage two | Decreased GFR + + -------+ +| 30-59 | Stage three | Stage three + + -------+ +| 15-29 | Stage four | Stage four + + -------+ +| <15 (or dialysis) | Stage five | Stage five + + -------+ +*Each stage assumes the associated GFR level has been in effect for at least three months. Stages 1 to 5, with or without kidney disease, indicate chronic kidney disease.Notes: Determination of stages one and two (with eGFR >59mL/min/1.73 m2) requires estimation of kidney damage for at least three months as defined by structural or functional abnormalities of the kidney, manifested by either:Pathological abnormalities or Markers of kidney damage (including abnormalities in the composition of the blood or urine or abnormalities in imaging tests). CREATINE KINASE - Abnormal; Notable for the following components: CK 635 (*) All other components within normal limits LIPASE - Abnormal; Notable for the following components: LIPASE 897 (*) All other components within normal limits BASIC METABOLIC PANEL (NA, K, CL, CO2, GLUCOSE, BUN, CREATININE, CA) - Abnormal; Notable for the following components: CALCIUM 8.1 (*) All other components within normal limits Narrative: Association of Glomerular Filtration Rate (GFR) and Staging of Kidney Disease*+ +------ + --+| GFR (mL/min/1.73 m2) | With Kidney Damage | Without Kidney Damage+ +-------- + +| >90 | Stage one | Normal + + -------+ +| 60-89 | Stage two | Decreased GFR + + -------+ +| 30-59 | Stage three | Stage three + + -------+ +| 15-29 | Stage four | Stage four + + -------+ +| <15 (or dialysis) | Stage five | Stage five + + -------+ +*Each stage assumes the associated GFR level has been in effect for at least three months. Stages 1 to 5, with or without kidney disease, indicate chronic kidney disease.Notes: Determination of stages one and two (with eGFR >59mL/min/1.73 m2) requires estimation of kidney damage for at least three months as defined by structural or functional abnormalities of the kidney, manifested by either:Pathological abnormalities or Markers of kidney damage (including abnormalities in the composition of the blood or urine or abnormalities in imaging tests). LIPASE - Abnormal; Notable for the following components: LIPASE 283 (*) All other components within normal limits CT ABDOMEN PELVIS W CONTRAST Preliminary Result 1. Subtle peripancreatic fat stranding is nonspecific but could be seen in the setting of early pancreatitis. 2. Colonic diverticulosis. 3. Prostatomegaly with median lobe hypertrophy protruding into the bladder. Preliminary Report Dictated by Resident: Peter Lagunas Additional Notes:ED Course as of 04/22/23 1239 ThuApr 22, [address] confirms some pancreatitis. Given tramadol script and phenergan as well as zofran. Recommended to allow bowel rest and return as needed. [WF] 1006 Due to capacity, internal recommends transfer. However, Dr Reyna reports trying another IV bolus and food. [WF] ED Course User Index[WF] Natali Alexander DO Diagnosis/Impression as of 04/22/23 1239 Heat exhaustion, initial encounter Dehydration, moderate JAQUELINE (acute kidney injury) Abdominal pain, unspecified abdominal location Acute pancreatitis, unspecified complication status, unspecified pancreatitis type Medical Decision MakingAKi is significant. Urine shows no infectionHowever patient is still complaining of abdominal cramping and nausea. H/o chronic pancreatitis. Given Gi cocktailWill repeat Cr and include CK and lipase levels. Problems Addressed:Abdominal pain, unspecified abdominal location: acute illness or injuryAcute pancreatitis, unspecified complication status, unspecified pancreatitis type: chronic illness or injury with exacerbation, progression, or side effects of treatmentAKI (acute kidney injury): acute illness or injuryDehydration, moderate: acute illness or injuryHeat exhaustion, initial encounter: acute illness or injuryAmount and/or Complexity of Data ReviewedLabs: ordered.Radiology: ordered.RiskPrescription drug management.Parenteral controlled substances.Disposition: Discharged HomeDiagnoses that have been ruled out: None Diagnoses that are still under consideration: None Final diagnoses: Heat exhaustion, initial encounter Dehydration, moderate JAQUELINE (acute kidney injury) Abdominal pain, unspecified abdominal location Acute pancreatitis, unspecified complication status, unspecified pancreatitis type Natali Alexander DO04/22/23 1238 06278-1Yzjsqnpcb Emergency department FxnoNO7232-65-88C24:38:07Physician Emergency department NoteTXT1.2.840.004213.1.13.104.2.7.2.72 7879|[id number] for patient dtbo00690-9Ylqyledaj department NoteLN[id number] RDSCSBCZXENFXGZOUYY3127-40-60E32:38:071 .2.840.378499.1.72.3.15|1.2.840.974627. 1.13.104.2.7.2.727879_[id number] [facility] 2023-04-16 08:49:36 1034-05-93B79:49:36 Pt requesting more medication, provider informed. Attempted to explain to the pt that he is constipated and we wanted to wait on more pain medication because it causes constipation. Pt stated " I am sick of this shit I am leaving." I let him know I would take the PIV out but I would get the AMA paperwork for him. He stated "I will get it out myself." Pt pulled out PIV and refused a Band-Aid. Provider informed and provider asked if the pt wants the prescriptions. I found the pt in the hallway and asked if he wanted the prescriptions. He came back to the room. Provider and this RN in room with discharge paperwork. Pt took prescription but not discharge papers complaining about the service. 12105-6Licsvvgnv department QkuvCJ4601-74-16I46:54:17[facility] NoteTXT1.2.840.695169.1.13.104.2.7.2.72 7879|[id number] for patient [id number] H Wark RNUT[id number] LSDLRYJTXQISZPNSODN2212-22-32E66:54:171 .2.840.664532.1.72.3.15|1.2.840.350910. 1.13.104.2.7.2.727879_[id number] Rachana Pratt RN [facility] 2023-04-16 08:17:00 3936-17-61Y16:17:00 This RN and Provider at bedside. Provider explaining to pt that some of his pain could be due to being constipated, images showed pt is constipated. 35854-7Ipeijielg department YjkvFD8156-32-49P28:57:40[facility] NoteTXT1.2.840.176438.1.13.104.2.7.2.72 7879|[id number] for patient ddeu46392-7LwptYTHJOPNNTK[address] [place], [place] [id number] QGTPUQAVBWJGWDKXMIE4320-23-47P30:57:401 .2.840.946215.1.72.3.15|1.2.840.237266. 1.13.104.2.7.2.727879_[id number] [facility] 2023-04-16 07:56:11 4024-83-04H70:56:11 Pt returns from X-ray, NAD noted, family remains at bedside. 84907-1Utughoflf department VcfjKC4535-53-72A88:56:33[facility] NoteTXT1.2.840.176293.1.13.104.2.7.2.72 7879|[id number] for patient xuvu35461-7VoeqQAUZOVYIBG[id number] OKWUCNGAJTBARGVEVSZ5520-83-04K86:56:331 .2.840.507064.1.72.3.15|1.2.840.560163. [id number] [facility] 2023-04-16 07:41:37 4110-08-33T59:41:37 Pt transported to X-ray via [facility] transport. 13994-2Huhouannq department DackEN3562-99-61A42:42:02Emergen department NoteTXT1.2.840.660385.1.13.104.2.7.2.72 7879|[id number] for patient atmn38694-1JszyXWKFDZLQNO[address] CitlJ[id number] AEHDYLOKVYPQEHQRBLJ6674-79-35X20:42:021 .2.840.093569.1.72.3.15|1.2.840.145795. [id number] [facility] 2023-04-16 07:20:37 3341-61-81Y66:20:37 Noah Putnam is a 52 year old male Patient arrives via personal means with complaint of abdominal pain, N/V/D. History of present illness includes Hep C, Pancreatitis. Patient is alert and oriented times X 4, PERRLA, speech clear, no facial droop or slurred speech noted, Trachea midline with no JVD. Respiration even and unlabored visualized. Lung sounds bilaterally clear. Heart tones S1S2 with strong distal pulses and capillary refill less than 2 seconds . Abdomen with bowel sounds X 4 quadrants, soft and nontender, last BM 0646. Patient resting in stretcher. Patient rates pain 8/10. Bed at lowest level, side rail up X 2, call light within reach. Placed on monitors and given warm blanket. Will continue with plan of care. at bedside. Provider and this RN at bedside. 31184-3Pamjpptwi department AvflED2527-32-46Q74:44:34[facility] department NoteTXT1.2.840.202654.1.13.104.2.7.2.72 7879|[id number] for patient dvsg32303-0EbcnIVGMIUVSTB[id number] HBWAULNKUENCCFBJCQO2937-16-36Z46:44:341 .2.840.422101.1.72.3.15|1.2.840.286592. [id number] [facility] 2023-04-16 07:08:22 2834-02-74X36:08:22 Noah Putnam is a 52 year old male presenting to ED with c/o abd pain. Patient reports pain for a few weeks. Patient reports was recently seen and diagnosed with pancreatitis. Patient endorses pain to abd and radiates to back. Patient to room for further eval 64450-6Puyoiqlwt department Triage lfdyKB4765-72-63L07:09:02[facility] department Triage noteTXT1.2.840.988612.1.13.104.2.7.2.72 7879|[id number] for patient avae68317-6Thqdpifjz department [id number] L Holmes [id number] MFLPVPRIKYWTZXJZQBU1235-15-84K76:09:021 .2.840.486067.1.72.3.15|1.2.840.337805. [id number] Helene Newell RN [facility] - Health 2023-04-16 06:46:00 0211-20-13K84:46:00 [facility] Emergency Department NotePatient Name: Noah Madden of : 1970 52 year old maleTreatment Room: [address] [place] [address] Record Number: [id number] Care Physician: PATIENT DOES NOT HAVE A PCPPatient Escorted by: Family [5]Mode of Arrival: Personal means [1]EMS Treatment Prior to ED Arrival: EMERGENCY DEPARTMENT treatment comments: Morning medicationsTravel and Exposure Screening:SymptomsDoes patient have any of these symptoms?: (not recorded)Exposure ScreeningHas patient had contact with someone with a communicable disease in the last month?: (not recorded)Diseases exposed to:: (not recorded)Is Patient ?: (not recorded)Exposure Date: (not recorded)Chief Complaint:Chief Complaint Patient presents with Abdominal Pain History of Present Illness:Noah Putnam is a 52 year old male presenting to ED with c/o abd pain. Patient reports pain for a few weeks. Patient reports was recently seen and diagnosed with pancreatitis. Patient endorses pain to abd and radiates to backHistory provided by: PatientLanguage svp used: No Abdominal PainPain location: Generalized (More severe in the epigastric area)Pain quality: aching, bloating, cramping and gnawing Pain radiates to: BackPain severity: ModerateOnset quality: GradualDuration: Several.Progression: Waxing and waningChronicity: ChronicContext: diet changes and eating Context: not alcohol use, not awakening from sleep, not laxative use, not medication withdrawal, not previous surgeries, not recent illness, not recent sexual activity, not recent travel, not retching, not sick contacts, not suspicious food intake and not trauma Context comment: Recently diagnosed with chronic pancreatitisRelieved by: None triedWorsened by: EatingIneffective treatments: None triedAssociated symptoms: anorexia and fatigue Associated symptoms: no chest pain, no chills, no constipation, no cough, no dysuria, no fever, no hematuria, no nausea, no shortness of breath, no sore throat and no vomiting Risk factors: no alcohol abuse, no aspirin use, not elderly, has not had multiple surgeries, no NSAID use, not obese, not and no recent hospitalization Past Medical History/Immunizations:Past Medical History: Diagnosis Date Gastric ulcer GERD (gastroesophageal reflux disease) Hepatitis C HTN (hypertension) Tetanus received in last 5 years: YesChildhood immunizations: Up-to-date Allergies:Allergies Allergen Reactions Bee Venom Protein (Honey Bee) Swelling Past Social History:Tobacco Use Never smoked or used smokeless tobacco. Alcohol Use Not Currently. Drug Use Not Currently; Marijuana. Comments: former Past Surgical History:Past Surgical History: Procedure Laterality Date NE FOREARM OR WRIST SURGERY Left Review of Systems: Review of Systems Constitutional: Positive for fatigue. Negative for chills, diaphoresis and fever. HENT: Negative for congestion, rhinorrhea, sore throat and trouble swallowing. Eyes: Negative for photophobia, pain, discharge and redness. Respiratory: Negative for cough, chest tightness, shortness of breath and wheezing. Cardiovascular: Negative for chest pain, palpitations and leg swelling. Gastrointestinal: Positive for abdominal pain and anorexia. Negative for abdominal distention, blood in stool, constipation, nausea and vomiting. Genitourinary: Negative for dysuria, urgency, polyuria, frequency, hematuria and flank pain. Musculoskeletal: Negative for arthralgias, joint swelling, myalgias and neck stiffness. Skin: Negative for color change, rash and wound. Neurological: Negative for dizziness, seizures, syncope, facial asymmetry, weakness, light-headedness, numbness and headaches. Psychiatric/Behavioral: Negative for agitation, confusion, hallucinations and self-injury. The patient is not nervous/anxious. Hematological: Negative for adenopathy and cold intolerance. Does not bruise/bleed easily. Endocrine: Negative for cold intolerance, polydipsia and polyuria. Physical Exam: ED Triage Vitals [04/16/23 0709] Weight 118.8 kg (262 lb) Actual or estimated Height BP (!) 169/106 Pulse 66 Resp 16 Temp 36.7 ?C (98.1 ?F) Temp source Oral SpO2 96 % Measured on Room air Physical ExamVitals and nursing note reviewed. Constitutional: General: He is awake. Appearance: Normal appearance. He is well-developed and well-groomed. He is not ill-appearing, toxic-appearing or diaphoretic. HENT: Head: Normocephalic and atraumatic. Right Ear: External ear normal. Left Ear: External ear normal. Nose: Nose normal. Eyes: General: No scleral icterus. Right eye: No discharge. Left eye: No discharge. Conjunctiva/sclera: Conjunctivae normal. Right eye: Right conjunctiva is not injected. Left eye: Left conjunctiva is not injected. Pupils: Pupils are equal, round, and reactive to light. Neck: Thyroid: No thyromegaly. Vascular: No carotid bruit or JVD. Trachea: No tracheal deviation. Meningeal: Brudzinski's sign and Kernig's sign absent. Cardiovascular: Rate and Rhythm: Normal rate and regular rhythm. Pulses: Normal pulses. Heart sounds: Normal heart sounds. No murmur heard. No friction rub. Pulmonary: Effort: Pulmonary effort is normal. No respiratory distress. Breath sounds: Normal breath sounds. Stridor present. No wheezing or rales. Chest: Chest wall: No tenderness. Abdominal: General: Bowel sounds are normal. There is no distension or abdominal bruit. Palpations: Abdomen is soft. There is no mass. Tenderness: There is generalized abdominal tenderness. There is no right CVA tenderness, left CVA tenderness, guarding or rebound. Negative signs include Gomez's sign and McBurney's sign. Positive psoas sign: More severe pain whem palpating the epigastrium.. Hernia: No hernia is present. There is no hernia in the left inguinal area. Genitourinary: Penis: Normal. Testes: Normal. Right: Mass, tenderness or swelling not present. Left: Mass, tenderness or swelling not present. Rectum: Normal. Musculoskeletal: General: No tenderness or deformity. Normal range of motion. Cervical back: Normal range of motion and neck supple. Lymphadenopathy: Cervical: No cervical adenopathy. Skin: General: Skin is warm and dry. Coloration: Skin is not pale. Findings: No erythema or rash. Neurological: Mental Status: He is alert and oriented to person, place, and time. Cranial Nerves: No cranial nerve deficit. Sensory: No sensory deficit. Motor: No tremor, abnormal muscle tone or seizure activity. Coordination: Coordination normal. Deep Tendon Reflexes: Reflexes are normal and symmetric. Psychiatric: Mood and Affect: Mood is not anxious or depressed. Affect is not angry. Behavior: Behavior normal. Thought Content: Thought content normal. Judgment: Judgment normal. Radiology:XR ABDOMEN 2 VW Preliminary Result EXAM: XR ABDOMEN 2 VW HISTORY: 52 years-old Male; Provided indication: diffuse abdominal pain . TECHNIQUE: Frontal views of the abdomen and pelvis COMPARISON: None FINDINGS: Moderate volume stool is seen in the ascending colon. Nonspecific bowel gas pattern. No acute osseous abnormality. IMPRESSION Moderate constipation with a nonspecific bowel gas pattern. Preliminary Report Dictated by Resident: Peter Lagunas Lab Results:Lab Results CBC WITH DIFF - Abnormal Result Value Ref Range WBC 6.75 4.20 - 10.70 10*3/?L RBC 5.08 4.26 - 5.52 10*6/?L HGB 15.2 12.2 - 16.4 g/dL HCT 43.6 38.4 - 49.3 % MCV 85.8 81.7 - 95.6 fL MCH 29.9 26.1 - 32.7 pg MCHC 34.9 31.2 - 35.0 g/dL RDW-SD 41.4 38.5 - 51.6 fL RDW-CV 13.2 12.1 - 15.4 % PLT 219 150 - 328 10*3/?L MPV 9.5 (*) 9.8 - 13.0 fL NRBC/100 WBC 0.0 0.0 - 10.0 /100 WBCs NRBC x10^3 <0.01 10*3/?L GRAN MAT (NEUT) % 46.9 % IMM GRAN % 0.10 % LYMPH % 43.4 % MONO % 8.4 % EOS % 0.9 % BASO % 0.3 % GRAN MAT x10^3(ANC) 3.16 1.99 - 6.95 10*3/uL IMM GRAN x10^3 <0.03 0.00 - 0.06 10*3/uL LYMPH x10^3 2.93 1.09 - 3.23 10*3/uL MONO x10^3 0.57 0.36 - 1.02 10*3/uL EOS x10^3 0.06 0.06 - 0.53 10*3/uL BASO x10^3 <0.03 0.01 - 0.09 10*3/uL COMP. METABOLIC PANEL (73565) - Abnormal NA 142 135 - 145 mmol/L K 4.0 3.5 - 5.0 mmol/L CL 105 98 - 108 mmol/L CO2 TOTAL 28 23 - 31 mmol/L AGAP 9 2 - 16 BUN 11 7 - 23 mg/dL GLUCOSE 115 (*) 70 - 110 mg/dL CREATININE 0.85 0.60 - 1.25 mg/dL TOTAL BILI 0.4 0.1 - 1.1 mg/dL CALCIUM 9.2 8.6 - 10.6 mg/dL T PROTEIN 7.6 6.3 - 8.2 g/dL ALBUMIN 4.4 3.5 - 5.0 g/dL ALK PHOS 52 34 - 122 U/L ALTv 23 5 - 50 U/L AST(SGOT) 33 13 - 40 U/L eGFR 95.4 mL/min/1.73m2 LIPASE - Abnormal LIPASE 492 (*) 0 - 220 U/L TROPONIN I - Normal TROPONIN I 0.020 <=0.034 ng/mL EKG:If EKG completed, see Procedure Note. Orders and Treatments:Orders Placed This Encounter Procedures XR ABDOMEN 2 VW CBC WITH DIFF COMP. METABOLIC PANEL (49511) LIPASE TROPONIN I Orders Placed This Encounter Medications NaCl 0.9% (NS) bolus infusion 1,000 mL ketorolac (TORADOL) injection 30 mg dicyclomine (BENTYL) injection 20 mg famotidine (PEPCID (PF)) injection 20 mg lactulose (CEPHULAC) solution 45 mL towlqq-rgbmivwf-prxbslo (CREON) 12,000-38,000 -60,000 unit capsule 2 capsule enalaprilat (VASOTEC I.V.) injection 1.25 mg qbhuov-nprmheam-ourawkg (CREON) 3,000-9,500- 15,000 unit capsule hyoscyamine sulfate (LEVSIN/SL) 0.125 mg sublingual tablet famotidine (PEPCID) 20 mg tablet bisacodyL 5 mg EC tablet First Provider Eval:ED Events Date/Time Event User Comments 04/16/23703 Medical Screening Begins BLOSSOM CANALES -- 04/16/23703 First Provider Evaluation BLOSSOM CANALES -- No notes of EC Admission Criteria type on file.ED COURSEDiagnosis/Impression as of 04/16/23 0849 Chronic pancreatitis, unspecified pancreatitis type Constipation by delayed colonic transit Chronic hypertension Procedures: ProceduresMDM:Medical Decision MakingProblems Addressed:Chronic hypertension: chronic illness or injuryChronic pancreatitis, unspecified pancreatitis type: chronic illness or injury with exacerbation, progression, or side effects of treatmentConstipation by delayed colonic transit: complicated acute illness or injury with systemic symptomsAmount and/or Complexity of Data ReviewedExternal Data Reviewed: labs, radiology and notes. Details: From his previous visit reviewedLabs: ordered. Decision-making details documented in ED Course.Radiology: ordered and independent interpretation performed. Decision-making details documented in ED Course.RiskOTC drugs.Prescription drug management. Flowsheet Documentation: Scoring Tools: No data recorded Disposition/Condition:ED Disposition ED Disposition Disch - Home Condition Stable Comment -- Discharge Medications:Patient's Medications START taking these medications BISACODYL 5 MG EC TABLET Take 1 tablet by mouth once daily as needed for Constipation. FAMOTIDINE (PEPCID) 20 MG TABLET Take 1 tablet by mouth in the morning and 1 tablet in the evening. HYOSCYAMINE SULFATE (LEVSIN/SL) 0.[address] 2 tablets under the tongue every 6 (six) hours as needed (Abdominal pain or cramping). YWYOVE-HPMYKCHN-WSQHXFJ (CREON) 3,000-9,500- 15,000 UNIT CAPSULE Take 1 capsule by mouth in the morning and 1 capsule at noon and 1 capsule in the evening. Take with meals. CONTINUE taking these medications which have NOT CHANGED AMLODIPINE (NORVASC) 10 MG TABLET Take 1 tablet by mouth daily. LISINOPRIL 10 MG TABLET Take 10 mg by mouth in the morning. ONDANSETRON 4 MG DISINTEGRATING TABLET Take 1 tablet by mouth every 8 (eight) hours as needed for Nausea and Vomiting (N/V). ONDANSETRON 4 MG TABLET 1-2 tablets every 8 hours as needed for nausea TRAMADOL 50 MG TABLET Take 1 tablet by mouth every 6 (six) hours as needed (pain). Indications: acute pain START taking Modified Medications as Prescribed No medications on file STOP taking these medications No medications on file Follow-up:Electronically signed by: Adelaide Goodwin MD04/16/23 0850 76211-8Pojdbuufg Emergency department OqivZU7942-32-41B92:50:55Physician Emergency department NoteTXT1.2.840.567104.1.13.104.2.7.2.72 7879|[id number] for patient ollq48817-0Cembkolfi department NoteLN[id number] IBLMIVYZSAHTMPYHECA0790-58-09Z38:50:551 .2.840.768373.1.72.3.15|1.2.840.947620. [id number] [facility] 2023-04-01 03:22:04 8671-20-19C17:22:04 Pt given printed and verbal discharge instructions regarding generalized abdominal pain, n/v, chronic pancreatitis, enlarged prostate, encouraged hydration.Prescriptions provided.Discussed antibiotic therapy and to take until all completed unless adverse reaction occurs - if occurs, discontinue medication and follow up with pcp/seek medical attentionDiscussed tramadol side affects and to avoid driving/operating machinery/or engaging in activities requiring alertness while taking.Pt verbalized understanding of instructions, pt awake alert oriented, resp reg unlabored, skin w/d, color appropriate for race, moves all ext well,pt encouraged to follow up with pcp.Advised to seek medical attention for new/prolonged/worsening of symptoms.No adverse reaction to meds given in ER noted upon discharge.PIV d'cd, dressing to site, catheter in tact.Awake, alert oriented, resp reg unlabored, skin w/d, pt leaving amb with steady gait, in no apparent distress. 25518-7Gqnreaqwh department HfteAW6663-10-26W92:24:21[facility] NoteTXT1.2.840.703039.1.13.104.2.7.2.72 7879|[id number] for patient [id number] C Heredia RNUT[address] [id number] AJARWTWECYWWMGVGJYJ7336-24-92U93:24:211 .2.840.043875.1.72.3.15|1.2.840.632570. [id number] Lelo Carbajal RN [facility] 2023-04-01 00:02:06 7877-39-35S86:02:06 History of chronic pancreatitis. Mid upper abdominal pain for 4 days. Complaining of oily stool. Vomited x2. 11478-4Btzvjqona department Triage ffujTQ0933-40-08V48:02:52Emergency department Triage noteTXT1.2.840.614929.1.13.104.2.7.2.72 7879|[id number] for patient [id number] Nolen RN[address] CmmlLfqyiwezsRmzbntqqhYSFK6624944447AUX KLBZZOCWOXNMEQUUXNB6555-06-51X78:02:521 .2.840.421236.1.72.3.15|1.2.840.173572. [id number] Anuradha Nolen RN [facility]
[2023-08-20 22:33] LABS: SARS-CoV-2 Antigen Rapid Res Negative (Negative)
--- NOTE | 2023-08-20 22:37 | RAD REPORT ---
EXAM DESCRIPTION: RAD - Chest Pa And Lat (2 Views) - 08/20/2023 10:23 pm CLINICAL HISTORY: COUGH COMPARISON: Chest Single View dated 04/05/2023; Chest Single View dated 10/20/2022; Chest Single View d ated 03/24/2022; Chest Single View dated 01/03/2022 TECHNIQUE: PA and lateral views of the chest were obtained. FINDINGS: The lungs are clear. Heart size is normal and central vasculature is within normal limits. No pleural effusion or pneumothorax seen. No acute bony finding noted. IMPRESSION: No acute cardiopulmonary process.
[2023-08-20] MEDS ORDERED: AZITHROMYCIN 250 MG TAB ONE (23:16)
--- NOTE | 2023-08-21 | ER ---
Nurse's Notes [facility] Name: Noah Putnam Age: 52 yrs Sex: Male : 1970 Arrival Date: 08/20/2023 Time: 21:44 Bed 12 Private MD: Diagnosis: Acute upper respiratory infection, unspecified;Cough;Acute pharyngitis, unspecified Presentation: 08/20 21:56 Chief complaint: Patient states: flu like symptoms x2 days. Coronavirus screen: At this as6 time, the client does not indicate any symptoms associated with coronavirus-19. Ebola Screen: No symptoms or risks identified at this time. Initial Sepsis Screen: Does the patient meet any 2 criteria? No. Patient's initial sepsis screen is negative. Does the patient have a suspected source of infection? No. Patient's initial sepsis screen is negative. Risk Assessment: Do you want to hurt yourself or someone else? Patient reports no desire to harm self or others. Onset of symptoms was August 18, 2023. 21:56 Acuity: BREEZY 4 as6 21:56 Method Of Arrival: Ambulatory as6 Triage Assessment: 22:09 General: Appears in no apparent distress. Behavior is calm, cooperative. General: as6 Reports feeling ill for fatigue for. Pain: Complains of pain in generalized Quality of pain is described as aching. EENT: Reports sore throat . Neuro: Level of Consciousness is awake, alert, obeys commands, Oriented to person, place, time, situation. Neuro: Reports headache. Cardiovascular: Capillary refill < 3 seconds Patient's skin is warm and dry. Respiratory: Reports cough that is Respiratory effort is even, unlabored, Respiratory pattern is regular, symmetrical. GI: No deficits noted. No signs and/or symptoms were reported involving the gastrointestinal system. : No deficits noted. No signs and/or symptoms were reported regarding the genitourinary system. Derm: Skin is intact, is healthy with good turgor. Musculoskeletal: Circulation, motion, and sensation intact. Historical: - Allergies: 21:53 Bee Venom; as6 - PMHx: 21:53 Chronic Pancreatitis; Herniated disc; Hypertension; chronic kidney disease; as - PSHx: 21:53 left arm surgery; as6 - Immunization history:: Adult Immunizations not up to date. - Social history:: Smoking status: Patient denies any tobacco usage or history of. Screenin:10 [facility] ED Fall Risk Assessment (Adult) Score/Fall Risk Level 0 - 2 = Low Risk. Abuse as6 screen: Denies threats or abuse. Denies injuries from another. Nutritional screening: No deficits noted. Tuberculosis screening: No symptoms or risk factors identified. Assessment: 22:13 General: see triage assessment . as6 Vital Signs: 21:55 BP 140 / 99; Pulse 92; Resp 18 S; Temp 98.7(O); Pulse Ox 97% on R/A; Weight 117.93 kg as6 (R); Height 6 ft. 5 in. (R); Pain 7/10; 23:23 BP 132 / 82; Pulse 88; Resp 18; Pulse Ox 98% on R/A; me1 21:55 Body Mass Index 30.83 (117.93 kg, 195.58 cm) as6 21:55 Pain Scale: Adult as6 ED Course: 21:48 Patient arrived in ED. jj6 21:54 Arm band placed on. as6 21:56 Triage completed. as6 22:06 Jimbo Rivera MD is Attending Physician. abe 22:09 Reza Muir, LINUS is Primary Nurse. as6 22:10 Bed in low position. as6 22:25 Chest Pa And Lat (2 Views) XRAY In Process Unspecified. EDMS 23:25 No provider procedures requiring assistance completed. Patient did not have IV access me1 during this emergency room visit. 08 00:13 Provided Education on: POC. Verbalized understanding. . me1 Administered Medications: 08/20 23:04 Drug: AZITHromycin PO 500 mg PO once Route: PO; me1 23:23 Follow up: Response: No adverse reaction me1 23:54 Drug: predniSONE PO 40 mg PO once Route: PO; me1 08/21 00:13 Follow up: Response: No adverse reaction me1 Medication: 08/20 22:11 VIS not applicable for this client. as6 Outcome: 08/21 00:00 Discharge ordered by . abe 00:13 Discharged to home ambulatory, with family, me1 00:13 Condition: stable 00:13 Discharge instructions given to patient, family, Instructed on discharge instructions, follow up and referral plans. medication usage, Demonstrated understanding of instructions, follow-up care, medications, Prescriptions given X 3, 00:13 Patient left the ED. me1 Signatures: Dispatcher [employer] Jimbo Fontenot MD MD cha Jeffries, Jennifer jj6 Reza Muir RN RN as6 Helene Oro RN RN me1
--- NOTE | 2023-08-21 | EDPHYS ---
Physician Documentation [facility] Name: Noah Putnam Age: 52 yrs Sex: Male : 1970 Arrival Date: 08/20/2023 Time: 21:44 Bed 12 Private MD: DINA Physician Jimbo Rivera HPI: 08/20 23:51 This 52 yrs old Black Male presents to ER via Ambulatory with complaints of Sore abe Throat, Cough, Congestion. 23:51 The patient presents with sore throat. The patient describes throat pain as abe intermittent. Onset: The symptoms/episode began/occurred 2 day(s) ago. Severity of symptoms: At their worst the symptoms were mild, in the emergency department the symptoms are unchanged. Modifying factors: The symptoms are alleviated by nothing, the symptoms are aggravated by nothing. Associated signs and symptoms: Pertinent positives: cough, flu-like symptoms, rhinorrhea. The patient has experienced similar episodes in the past, a few times. Historical: - Allergies: 21:53 Bee Venom; as6 - PMHx: 21:53 Chronic Pancreatitis; Herniated disc; Hypertension; chronic kidney disease; as6 - PSHx: 21:53 left arm surgery; as6 - Immunization history:: Adult Immunizations not up to date. - Social history:: Smoking status: Patient denies any tobacco usage or history of. ROS: 23:52 Constitutional: Negative for fever, chills, and weight loss, Eyes: Negative for injury, abe pain, redness, and discharge, ENT: Negative for injury, pain, and discharge, Neck: Negative for injury, pain, and swelling, Cardiovascular: Negative for chest pain, palpitations, and edema, Abdomen/GI: Negative for abdominal pain, nausea, vomiting, diarrhea, and constipation, Back: Negative for injury and pain, : Negative for injury, bleeding, discharge, and swelling, MS/Extremity: Negative for injury and deformity, Skin: Negative for injury, rash, and discoloration, Neuro: Negative for headache, weakness, numbness, tingling, and seizure, Psych: Negative for depression, anxiety, suicide ideation, homicidal ideation, and hallucinations, Allergy/Immunology: Negative for hives, rash, and allergies, Endocrine: Negative for neck swelling, polydipsia, polyuria, polyphagia, and marked weight changes, Hematologic/Lymphatic: Negative for swollen nodes, abnormal bleeding, and unusual bruising, 23:52 Respiratory: Positive for cough, shortness of breath, at rest. Exam: 23:52 Constitutional: This is a well developed, well nourished patient who is awake, alert, abe and in no acute distress. Head/Face: Normocephalic, atraumatic. Eyes: Pupils equal round and reactive to light, extra-ocular motions intact. Lids and lashes normal. Conjunctiva and sclera are non-icteric and not injected. Cornea within normal limits. Periorbital areas with no swelling, redness, or edema. Neck: Trachea midline, no thyromegaly or masses palpated, and no cervical lymphadenopathy. Supple, full range of motion without nuchal rigidity, or vertebral point tenderness. No Meningismus. Chest/axilla: Normal chest wall appearance and motion. Nontender with no deformity. No lesions are appreciated. Cardiovascular: Regular rate and rhythm with a normal S1 and S2. No gallops, murmurs, or rubs. Normal PMI, no JVD. No pulse deficits. Respiratory: Lungs have equal breath sounds bilaterally, clear to auscultation and percussion. No rales, rhonchi or wheezes noted. No increased work of breathing, no retractions or nasal flaring. Abdomen/GI: Soft, non-tender, with normal bowel sounds. No distension or tympany. No guarding or rebound. No evidence of tenderness throughout. Back: No spinal tenderness. No costovertebral tenderness. Full range of motion. Male : Normal genitalia with no discharge or lesions. Skin: Warm, dry with normal turgor. Normal color with no rashes, no lesions, and no evidence of cellulitis. MS/ Extremity: Pulses equal, no cyanosis. Neurovascular intact. Full, normal range of motion. Neuro: Awake and alert, GCS 15, oriented to person, place, time, and situation. Cranial nerves II-XII grossly intact. Motor strength 5/5 in all extremities. Sensory grossly intact. Cerebellar exam normal. Normal gait. Psych: Awake, alert, with orientation to person, place and time. Behavior, mood, and affect are within normal limits. 23:52 ENT: Posterior pharynx: Airway: normal, no evidence of obstruction, Tonsils: are normal in appearance, with erythema, Uvula: normal, midline, non-edematous, no erythema, swelling, that is mild, erythema, that is mild, exudate, is not appreciated, peritonsillar mass, is not appreciated, pooling of secretions, is not appreciated, Vital Signs: 21:55 BP 140 / 99; Pulse 92; Resp 18 S; Temp 98.7(O); Pulse Ox 97% on R/A; Weight 117.93 kg as6 (R); Height 6 ft. 5 in. (R); Pain 7/10; 23:23 BP 132 / 82; Pulse 88; Resp 18; Pulse Ox 98% on R/A; me1 21:55 Body Mass Index 30.83 (117.93 kg, 195.58 cm) as6 21:55 Pain Scale: Adult as6 MDM: 22:06 Patient medically screened. abe 23:54 Differential diagnosis: group A strep tonsillitis, influenza, laryngitis, pharyngitis, abe tonsillitis, upper respiratory infection, uvulitis. Differential Diagnosis: Obstructed Airway Bronchitis Influenza Upper Respiratory Infection Sinusitis Pharyngitis Viral Syndrome Pneumonia. Data reviewed: vital signs, nurses notes, lab test result(s), Flu: negative radiologic studies. Consideration of Admission/Observation Escalation of care including admission/observation considered. I considered the following discharge prescriptions or medication management in the emergency department Medications were administered in the Emergency Department. See MAR. Independent interpretation of the following test(s) in the Emergency Department X-Ray: My interpretation is CXR NEGATIVE. Test considered but Not performed: EKG: NO EKG. Historians other than the Patient: Family Member: SON , WELL INFORMED. Care significantly affected by the following chronic conditions: Hypertension, Chronic Kidney Disease, CHRONIC PANCREATITIS. Counseling: I had a detailed discussion with the patient and/or guardian regarding the historical points, exam findings, and any diagnostic results supporting the discharge/admit diagnosis, lab results, radiology results, the need for outpatient follow up, for definitive care, 08/20 21:55 Order name: Strep; Complete Time: 22:52 as6 08/20 21:55 Order name: SARS RAPID; Complete Time: 22:52 as6 08/20 21:55 Order name: Influenza Screen (a \T\ B); Complete Time: 23:19 as6 08/20 22:41 Order name: Throat Culture EDCT 08/20 22:07 Order name: Chest Pa And Lat (2 Views) XRAY; Complete Time: 22:52 [facility] Administered Medications: 23:04 Drug: AZITHromycin PO 500 mg PO once Route: PO; me1 23:23 Follow up: Response: No adverse reaction me1 23:54 Drug: predniSONE PO 40 mg PO once Route: PO; me1 08/21 00:13 Follow up: Response: No adverse reaction me1 Disposition Summary: 08/21/23 00:00 Discharge Ordered Notes: Location: Home [facility] Problem: new [facility] Symptoms: have improved [facility] Condition: Stable abe Diagnosis - Acute upper respiratory infection, unspecified abe - Cough abe - Acute pharyngitis, unspecified abe Followup: [facility] - With: Private Physician - When: 2 - 3 days - Reason: Recheck today's complaints, Continuance of care, Re-evaluation by your physician Discharge Instructions: - Discharge Summary Sheet abe - Pharyngitis abe - Sore Throat abe - Upper Respiratory Infection, Adult [facility] - Cool Mist Vaporizer abe - Upper Respiratory Infection, Adult, [id number] abe - Pharyngitis, [id number] abe - Cough, Adult, [id number] abe - Cough, Adult abe - Sore Throat, [id number] [facility] Forms: - Medication Reconciliation Form [facility] - Thank You Letter [facility] - Antibiotic Education [facility] - Prescription Opioid Use [facility] - Patient Portal Instructions [facility] - Leadership Thank You Letter [facility] Prescriptions: - Tessalon Perles 100 mg Oral capsule - take 2 capsule ORAL route every 8 hours As needed; 30 capsule; Refills: 0, abe Product Selection Permitted - Zithromax Z-Soto 250 mg Oral Tablet - take 1 tablet ORAL route as directed for 5 days Day 1 - take two (2) tablets [facility] one time. Day 2, 3, 4 , 5 take one (1) tablet once daily.; 6 tablet; Refills: 0, Product Selection Permitted - Medrol (Soto) 4 mg Oral Tablets, Dose Pack - take 1 tablet ORAL route as directed - follow package instructions; 1 packet; [facility] Refills: 0, Product Selection Permitted Signatures: Dispatcher [employer] Jimbo Fontenot MD MD cha Slawson, Ashby, RN RN as6 Helene Oro RN RN me1
[2023-08-21] MEDS ORDERED: predniSONE 20 MG TAB ONE (00:07)
[2023-08-21 00:32] VITALS: TEMP 98.7
[2023-08-21 00:33] VITALS: BP 132/82; O2SAT 98
== END 2023-08-21 00:13 | disposition home or self-care (01) ==
LOC: ER 21:44
DX: J06.9 Acute upper respiratory infection, unspecified (principal); J02.9 Acute pharyngitis, unspecified; Z11.52 Encounter for screening for COVID-19
CPT/HCPCS: 36415; 71046; 87070; 87081; 87804; 87811; 99283; J7512

== ENCOUNTER 2024-02-08 23:06 | Emergency (ER) | payer OTHER, SELFPAY ==
--- OUTSIDE RECORDS SUMMARY | 2024-02-08 23:19 | XMS REPORT | Continuity of Care Document ---
Author Name Unknown Address [address] [facility] [address] [place] [address] [facility] thconnect Address [address] [facility] [address] [place] [address] Care Team Providers Care Licensed Acupuncturist Name Role Phone Emily Gaines Primary Care Physician Mayuri James Attending Clinician GIBRAN Arnold Attending Clinician Unavailable HAYDEN ORTIZ Attending Clinician Unavailable ABRAHAM ORANTES Attending Clinician Unavailable Abraham Orantes MD Attending Clinician + [phone] Chavez Turner DO Attending Clinician [phone] CALLIE MUNOZ Attending Clinician Unavailable CALLIE MUNOZ Attending Clinician Unavailable MERLYN HIDALGO Attending Clinician Unavailable Doctor Unassigned, [place] Attending Clinician U navailADAN Gunter Attending Clinician Unav KIARA Rosenbaum Attending Clinician Unava ilTrevor Acevedo Attending Clinician Unavailable Trevor Worley Attending Clinician [phone] JOHNATHAN AVILA Attending Clinician Unavail able Johnathan Avila MD Attending Clinician [phone] Jessie Paul Attending Clinician Unavaila JIMMY Mayfield Attending Clinician Unavailabl STEPHIE Cortes Attending Clinician Unavailab MIRIAM Cervantes Attending Clinician Unavailable MIRIAM LUDWIG Attending Clinician Unavailable Haresh Santamaria MD Attending Clinician + Jessie Gleason Attending Clinician Unavailab Dieudonne Winters Attending Clinician Unavailab atilio BANGURA Attending Clinician Unavailable MANFRED LANE Attending Clinician Unavaila AYDIN Miller Attending Clinician Unavailable Aydin Matos MD Attending Clinician + NATALI ALEXANDER Attending Clinician Unavailab Natali Glass DO Attending Clinician +[phone] ADELAIDE GOODWIN Attending Clinician Unavailable Adelaide Goodwin MD Attending Clinician [phone] HEMALATHA MORA Attending Clinician Unavailable Hemalatha Womack Attending Clinician +[phone] JESSICA GONAZLES Attending Clinician Unavailable Jessica Pradhan Attending Clinician [phone] SOHAM CLARKE Attending Clinician Unavailabl Soham Lynch MD Attending Clinician +[phone] Lion Eckert Attending Clinician + MARK HERNANDEZ Attending Clinician Unavailable Mark Hernandez MD Attending Clinician +[phone] Ellen Carroll RN Attending Clinician + [phone] EMELIA GALLEGO Attending Clinician Unavailable Coco FRENCHP, Madison Tripathi Attending Clinician [phone] Bhupendra HEREDIA, Emelia Attending Clinician [phone] Felipe Valdivia Attending Clinician + [phone] FELIPE ORTEGA Attending Clinician Unavailable Elliot HICKS, Gabriella Richard Attending Clinician + [phone] Nurse, Adc Pob Immunization Attending Clinician Unavailable David Clarke DO Attending Clinician [phone] Harvinder WALDROP, Nikhil Attending Clinician [phone] NIKHIL BLANTON Attending Clinician Unavailable Pcp, Patient Does Not Have A Attending Clinician Isabela BARRIGA, Mirna Topete Attending Clinician Unavailab Darnell Denny Attending Clinician + [phone] DARNELL HSU Attending Clinician Unavailable Jessy Siddiqui DO Attending Clinician [phone] ABRAHAM ORANTES Admitting Clinician Unavailable JOHNATHAN AVILA Admitting Clinician Unavail able UNDEFINED Admitting Clinician Unavailable STEPHIE HEWITT Admitting Clinician Unavailab HARESH Sharma Admitting Clinician Unav ailable Dieudonne Vallejo Admitting Clinician Unavailab MANFRED Elizabeth Admitting Clinician Unavaila NATALI Roe Admitting Clinician Unavailab ADELAIDE Rader Admitting Clinician Unavailable HEMALATHA MORA Admitting Clinician Unavailable SOHAM CLARKE Admitting Clinician UnavailLION Minaya Admitting Clinician Unavailable MARK HERNANDEZ Admitting Clinician Unavailable Mark Hernandez MD Admitting Clinician [phone] Trevor TAYLOR Admitting Clinician Unavailable EMELIA GALLEGO Admitting Clinician Unavailable Emelia Gallego DO Admitting Clinician [phone] DARNELL HSU Admitting Clinician Unavailable Payers Payer Name Policy Type Policy Number Effective Date Expirati on Date Source [employer] MP [employer] 5 HMO [employer]ER 94 [place] 9 [id number] 2023 00:00:00 [employer] 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 [id number] 2022 00:00:00 2023 00:00:00 [facility] INS PROGRAM 2 [id number] 2023 00:00:00 [employer] GENERIC [id number] 2021 00:00:00 [facility] 6 [id number] [facility] Problems Condition Name Condition Details Condition Category Status Onset Date Resolution Date Last Treatment Date Treating Clinician Comments Source Well adult exam Well adult exam Disease Active 12-16 00:00: 00 Luz Maria Semcold - Externa l Class 1 obesity due to excess calories with serious comorbidit y and body mass index (BMI) of 32.0 to 32.9 in adult Class 1 obesity due to excess calories with serious comorbidit y and body mass index (BMI) of 32.0 to 32.9 in adult Disease Active 12-16 00:00: 00 [facility] Maria Semcold - Externa l Chronic pancreatit is (multi HCC) Chronic pancreatit is (multi HCC) Disease Active 10-06 00:00: 00 Luz Maria Seybold - Externa l Chronic hepatitis C (multi HCC) Chronic hepatitis C (multi HCC) Disease Active 10-06 00:00: 00 [facility] Maria Semcold - Externa l Hypertensi on Hypertensi on Disease Active 10-06 00:00: 00 Luz Maria Seybold - Externa l GERD (gastroeso phageal reflux disease) GERD (gastroeso phageal reflux disease) Disease Active 10-06 00:00: 00 Luz Maria Seybold - Externa l BPH (benign prostatic hyperplasi a) BPH (benign prostatic hyperplasi a) Disease Active 10-06 00:00: 00 Luz Maria Seybold - Externa l Chronic back pain Chronic back pain Disease Active 10-06 00:00: 00 Luz Maria Rivreaold - Externa l Spondylosi s of lumbar spine Spondylosi s of lumbar spine Disease Active 10-06 00:00: 00 Luz Maria Espinosa Externa l Epigastric pain Epigastric pain Disease Active 10-11 00:00: 00 [facility] SBO (small bowel obstructio n) SBO (small bowel obstructio n) Disease Active 10-30 00:00: 00 [facility] Obesity (BMI 30-39.9) Obesity (BMI 30-39.9) Disease Active 10-30 00:00: 00 [facility] No known active problems No known active problems Disease [facility] [id number] Bladder mass Problem [facility] [id number] Microscopi c hematuria Problem [facility] [id number] Suprapubic pain Problem [facility] [id number] Lower urinary tract symptoms Problem [facility] Allergies, Adverse Reactions, Alerts Allergy Name Allergy Type Status Severity Reaction(s) Onset Date Inactive Date Treating Clinician Comments Source bee venom protein (honey bee) DA Active SV THROAT SWELL 2022-09 1 00:00: 00 [facility] Bee Venom Propensi ty to adverse reaction s Active Swelling 10-30 00:00: 00 Luz Maria rea BEE VENOM PROTEIN (HONEY BEE) DRUG INGREDI Active Swelling 10-30 00:00: 00 [facility] No Known Allergie s DA Active U - 00:00: 00 [facility] NO KNOWN ALLERGIE S Drug Class Active [facility] Social History Social Habit Start Date Stop Date Quantity Comments Source Gender identity Kelsi Ng - External Sexual orientation Trevor Ng - External History of tobacco use Cigarette Smoker Luz Maria trivedi - External Alcohol intake 2023-12-17 00:00:00 2023-12-17 00:00:00 Ex-drinker (finding) Luz Maria Ng - External Cigarettes smoked current (pack per day) - Reported 2023-10-06 00:00:00 2023-10-06 00:00:00 Luz Maria Ng - External Cigarette pack-years 2023-10-06 00:00:00 2023-10-06 00:00:00 Luz Maria [place] Education - What is the highest level of school you have completed or the highest degree you have received? 2023-10-06 00:00:00 2023-10-06 00:00:00 Associate degree: academic program Luz Maria [place]en[place] Alcohol Comment 2023-10-06 00:00:00 2023-10-06 00:00:00 sober since 2016 Luz Maria Espinosa External Tobacco use and exposure 2023-10-06 00:00:00 2023-10-06 00:00:00 Smokeless tobacco non-user Luz Maria [place] History of Social function 2023-06-01 00:00:00 2023-06-01 00:00:00 Luz Maria Monten[place]ro Exposure to SARS-CoV-2 (event) 2022-11-28 00:00:00 2022-12-08 23:50:00 Not sure [facility] Sex Assigned At 1970 00:00:00 1970 00:00:00 Luz Maria Monten[place]ro Smoking Status Start Date Stop Date Source Ex-smoker 2023-10-06 00:00:00 2023-10-06 00:00:00 Luz Maria Monten[place]ro Occasional tobacco smoker 2023-05-20 00:00:00 Luz Maria Montenegro Never smoked tobacco [facility] Unknown if ever smoked [facility] Medications Ordered Medication Name Filled Medication Name Start Date Stop Date Current Medication? Ordering Clinician Indication Dosage Frequency Signature (SIG) Comments Components Source Ketorolac Tromethamin e 10 MG oral Tablet 12-16 15:16: 47 12-16 00:00 :00 No 10mg Q.25D Take 1 tablet (10 mg total) by mouth every 6 hours as needed for pain FOR PAIN. [facility] rea Cyclobenzap rine HCl 10 MG oral Tablet 12-16 00:00: 00 Yes [id number] 10mg QD Take 1 tablet (10 mg total) by mouth nightly as needed for muscle spasms. [facility] Maria re[facility] HYDROcodone -acetaminop hen (NORCO) 10-325 mg tablet 1 tablet 12-09 04:45: 00 12-09 03:57 :00 No 1{tbl} 1 tablet, Oral, ONCE NOW, 1 dose, On Thu12/09/23 at 2345, Routine [facility] iopamidol (ISOVUE 370-500 mL) injection 100 mL 12-09 03:30: 00 12-09 03:30 :00 No [id number] 100mL 100 mL, Intravenou s, ONCE, 1 dose, On Thu12/09/23 at 2230, Routine [facility] ketorolac (TORADOL) injection 30 mg 12-09 03:00: 00 12-09 02:04 :00 No 30mg 30 mg, Slow IV Push, ONCE, 1 dose, On Thu12/09/23 at 2200, Routine [facility] Methocarbam ol 750 MG oral Tablet 12-09 00:00: 00 12-16 00:00 :00 No 750mg Q.25D Take 1 tablet (750 mg total) by mouth every 6 hours as needed FOR PAIN. Luz Maria rea ketorolac 10 mg tablet 12-08 00:00: 00 Yes [id number] 10mg Take 1 tablet by mouth every 6 (six) hours as needed for Pain (scale 7-10). [facility] methocarbam oL 750 mg tablet 12-08 00:00: 00 Yes [id number] 750mg Take 1 tablet by mouth every 6 (six) hours as needed for Pain (scale 7-10) (MUSCLE SPASM). [facility] Ketorolac Tromethamin e (TORADOL IM) 12-05 00:00: 00 12-16 00:00 :00 No Luz Maria rea Lisinopril 10 MG oral Tablet 10-06 14:45: 28 10-06 00:00 :00 No 10mg Take 1 tablet (10 mg total) by mouth daily. [facility] Maria re[facility] Pancrelipas e, Lip-Prot-Am yl, (Creon) 16186-95042 units oral Cap DR Particles 10-06 00:00: 00 Yes [id number] 1{capsu le} Take 1 capsule by mouth 3 times daily (with meals). [facility] Maria rea Amlodipine Besylate 10 MG oral Tablet 10-06 00:00: 00 Yes [id number] 10mg Take 1 tablet (10 mg total) by mouth daily. [facility] re[facility] Lisinopril 10 MG oral Tablet 10-06 00:00: 00 Yes [id number] 10mg Take 1 tablet (10 mg total) by mouth daily. [facility] Maria rea Famotidine (PEPCID) 20 MG oral tablet 10-06 00:00: 00 Yes [id number] 20mg Take 1 tablet (20 mg total) by mouth 2 times daily. [facility] Maria rea Gabapentin 300 MG oral Capsule 10-06 00:00: 00 Yes [id number] 300mg Q.5D Take 1 capsule (300 mg total) by mouth 2 times daily as needed. [facility] Maria re[facility] Pantoprazol e Sodium 20 MG oral Tablet Delayed Response 10-06 00:00: 00 Yes [id number] 20mg Take 1 tablet (20 mg total) by mouth every morning. [facility] re[facility] HYDROcodone -acetaminop hen (NORCO) 10-325 mg tablet 1 tablet 2022-09 06:45: 00 08-04 05:38 :00 No 1{tbl} 1 tablet, Oral, ONCE NOW, 1 dose, [facility]08/04/23 [facility] 0045[facility] 1,000 mg 2022-09 05:45: 00 08-04 05:38 :00 No 1000mg 1,000 mg, Oral, ONCE, 1 dose, On Thu08/03/23 at 2345, VASILIY [facility] FENTanyl PF (SUBLIMAZE (PF)) injection 75 mcg 2022-09 05:00: 00 08-04 04:14 :00 No 75ug 75 mcg, Slow IV Push, ONCE, 1 dose, On 08/03/23 at 2300, Routine [facility] NaCl 0.9% (NS) IV infusion 1,000 mL 2022-09 04:45: 00 08-04 05:39 :00 No 1000mL at 999 mL/hr, Intravenou s, ONCE, 1 dose, On Thu08/03/23 at 2245, Routine [facility] methocarbam oL 500 mg tablet 2022-09 00:00: 00 Yes [id number] 500mg Take 1 tablet by mouth every 6 (six) hours as needed (MUSCLE SPASM). [facility] HYDROcodone -acetaminop hen (NORCO) 10-325 mg tablet 2022-09 00:00: 00 08-11 05:59 :00 No [id number] 1{tbl} Take 1 tablet by mouth every 6 (six) hours as needed for Pain (scale 7-10) for up to 7 days. Indication s: acute pain [facility] diphenhydrA MINE (BENADRYL) injection 25 mg 2022-09 19:30: 00 07-25 18:34 :00 No 25mg 25 mg, Slow IV Push, ONCE, 1 dose, On 07/25/23 at 1330, STAT [facility] metoclopram jerilyn HCl (REGLAN) injection 10 mg 2022-09 19:30: 00 07-25 18:34 :00 No 10mg 10 mg, Slow IV Push, ONCE, 1 dose, On 07/25/23 at 1330, VASILIY [facility] morpHINE (4 mg/mL) injection 4 mg 2022-09 17:30: 00 07-25 16:43 :00 No 4mg 4 mg, Slow IV Push, ONCE, 1 dose, On 07/25/23 at 1130, STAT [facility] ondansetron (ZOFRAN (PF)) injection 4 mg 2022-09 17:15: 00 07-25 16:43 :00 No 4mg 4 mg, Slow IV Push, ONCE, 1 dose, On 07/25/23 at 1115, VASILIY [facility] NaCl 0.9% (NS) bolus infusion 1,000 mL 2022-09 17:15: 00 07-25 18:54 :00 No 1000mL at 999 mL/hr, 1,000 mL, IV Infusion, ONCE, 1 dose, On 07/25/23 at 1115, STAT [facility] metoclopram jerilyn HCl 10 mg tablet 2022-09 00:00: 00 Yes [id number] 10mg Take 1 tablet by mouth every 6 (six) hours. [facility] sodium chloride (NS) injection 5 mL 2022-09 19:45: 30 Yes 5mL 5 mL, Intravenou s, PRN, Starting on Thu07/24/23 at 1345, Until Discontinu ed, Routine, IV line flushing [facility] dicyclomine 20 mg tablet 2022-09 00:00: 00 Yes [id number] 20mg Take 1 tablet by mouth 4 (four) times daily as needed for Abdominal pain. [facility] ketorolac (TORADOL) injection 15 mg 2022-09 03:15: 00 07-12 02:32 :00 No 15mg 15 mg, Slow IV Push, ONCE, 1 dose, On 07/11/23 at 2215, Routine [facility] methocarbam oL (ROBAXIN) tablet 1,000 mg 2022-09 02:30: 00 07-12 02:32 :00 No 1000mg 1,000 mg, Oral, ONCE, 1 dose, On 07/11/23 at 2130, VASILIY [facility] famotidine (PEPCID (PF)) injection 20 mg 2022-09 02:30: 00 07-12 02:32 :00 No 20mg 20 mg, Slow IV Push, ONCE, 1 dose, On 07/11/23 at 2130, VASILIY [facility] aspirin chewable tablet 324 mg 2022-09 02:15: 00 07-12 02:31 :00 No 324mg 324 mg, Oral, ONCE, 1 dose, On Thu07/11/23 at 2115, STAT [facility] HYDROcodone -acetaminop hen 5-325 mg tablet 2022-09 00:00: 00 07-15 04:59 :00 No [id number] 1{tbl} Take 1 tablet by mouth every 4 (four) hours as needed for Pain (scale 7-10) for up to 3 days. Indication s: acute pain [facility] omeprazole 40 mg capsule 2022-09 00:00: 00 Yes [id number] 40mg Take 1 capsule by mouth in the morning and 1 capsule in the evening. [facility] peg-electro lyte soln 236-22.74-6 .74 -5.86 gram solution 2022-09 00:00: 00 Yes [id number] Take as directed before colonoscop y [facility] Lisinopril 10 MG oral Tablet 2022-09 08:45: 58 Yes 10mg Take 1 tablet (10 mg total) by mouth daily. [facility] re[facility] Tamsulosin HCl 0.4 MG oral Capsule 2022-09 00:00: 00 Yes .4mg Take 1 capsule (0.4 mg total) by mouth every night at bedtime. [facility] re[facility] morpHINE (4 mg/mL) injection 4 mg 2022-09 13:45: 00 07-03 12:49 :00 No 4mg 4 mg, Slow IV Push, ONCE, 1 dose, On Thu07/03/23 at 0845, [facility] famotidine (PEPCID (PF)) injection 20 mg 2022-09 13:00: 00 07-03 12:49 :00 No 20mg 20 mg, Slow IV Push, ONCE, 1 dose, On Thu07/03/23 at 0800, [facility] iohexol (OMNIPAQUE 350 BULK-100 mL) injection 80 mL 2022-09 10:40: 00 07-03 10:40 :00 No [id number] 80mL 80 mL, Intravenou s, ONCE, 1 dose, On Thu07/03/23 at 0545, Routine [facility] ondansetron (ZOFRAN (PF)) injection 4 mg 2022-09 10:15: 00 07-03 10:20 :00 No 4mg 4 mg, Slow IV Push, ONCE, 1 dose, On Thu07/03/23 at 0515, VASILIY [facility] morpHINE (4 mg/mL) injection 4 mg 2022-09 10:15: 07-03 10:20 :00 No 4mg 4 mg, Slow IV Push, ONCE, 1 dose, On Thu07/03/23 at 0515, STAT [facility] Pantoprazol e Sodium 20 MG oral Tablet Delayed Response 2022-09 00:00: 00 10-06 00:00 :00 No 20mg Take 1 tablet (20 mg total) by mouth every morning. [facility] Maria rea HYDROcodone -Acetaminop hen (NORCO) 5-325 MG oral Tablet 2022-09 00:00: 00 10-06 00:00 :00 No TAKE 1 TABLET BY MOUTH EVERY 4 HOURS NEEDED FOR PAIN (SCALE 4-6) [facility] re[facility] famotidine (PEPCID) 20 mg tablet 2022-09 00:00: 00 07-10 00:00 :00 No [id number] 20mg Take 1 tablet by mouth in the morning and 1 tablet in the evening. [facility] Lisinopril 10 MG oral Tablet 05-20 15:08: 12 Yes 10mg Take 1 tablet (10 mg total) by mouth daily. [facility] re[facility] Tamsulosin HCl 0.4 MG oral Capsule 05-20 00:00: 00 Yes .4mg Take 1 capsule (0.4 mg total) by mouth every night at bedtime. [facility] iopamidol (ISOVUE 370-500 mL) injection 80 mL 05-08 03:15: 00 05-08 02:12 :00 No [id number] 80mL 80 mL, Intravenou s, ONCE, 1 dose, On Carrie 05/07/23 at 2215, Routine [facility] morpHINE (4 mg/mL) injection 4 mg 05-08 01:00: 00 05-08 01:38 :00 No 4mg 4 mg, Slow IV Push, ONCE, 1 dose, On Carrie 05/07/23 at 2000, [facility] NaCl 0.9% (NS) bolus infusion 1,000 mL 05-08 01:00: 00 05-08 04:22 :00 No 1000mL at 999 mL/hr, 1,000 mL, IV Infusion, ONCE, 1 dose, On Carrie 05/07/23 at 2000, [facility] NaCl 0.9% (NS) bolus infusion 1,000 mL 05-02 05:15: 00 05-02 05:29 :00 No 1000mL at 999 mL/hr, 1,000 mL, IV Infusion, ONCE, 1 dose, On 05/02/23 at 0015, STAT [facility] famotidine (PEPCID (PF)) injection 20 mg 05-02 04:15: 00 05-02 04:21 :00 No 20mg 20 mg, Slow IV Push, ONCE, 1 dose, On Thu05/01/23 at 2315, [facility] maalox:diph enhydrAMINE :lidocaine 2 % viscous 1:1:1 ([facility] oral suspension 15 mL 05-02 04:15: 00 05-02 04:21 :00 No 15mL 15 mL, Oral, ONCE, 1 dose, On Thu05/01/23 at 2315, [facility] ondansetron (ZOFRAN (PF)) injection 4 mg 05-02 04:15: 00 05-02 03:18 :00 No 4mg 4 mg, Slow IV Push, ONCE, 1 dose, On Thu05/01/23 at 2315, [facility] NaCl 0.9% (NS) bolus infusion 1,000 mL 05-02 04:15: 00 05-02 04:15 :00 No 1000mL at 999 mL/hr, 1,000 mL, IV Infusion, ONCE, 1 dose, On Thu05/01/23 at 2315, STAT [facility] metoclopram jerilyn HCl 10 mg tablet 05-01 00:00: 00 Yes [id number] 10mg Take 1 tablet by mouth every 6 (six) hours. [facility] pantoprazol e (PROTONIX) 20 mg EC tablet 05-01 00:00: 00 07-03 00:00 :00 No [id number] 20mg Take 1 tablet by mouth in the morning. [facility] iopamidol (ISOVUE 370-500 mL) injection 70 mL 04-22 16:21: 00 04-22 16:21 :00 No [id number] 70mL 70 mL, Intravenou s, ONCE, 1 dose, On Thu04/22/23 at 1145, Routine [facility] haloperidol lactate (HALDOL) injection 2.5 mg 04-22 16:00: 00 04-22 16:01 :00 No 2.5mg 2.5 mg, Intravenou s, ONCE, 1 dose, On Thu04/22/23 at 1100, STAT [facility] NaCl 0.9% (NS) bolus infusion 500 mL 04-22 14:45: 00 04-22 15:30 :00 No 500mL at 999 mL/hr, 500 mL, IV Infusion, ONCE, 1 dose, On Thu04/22/23 at 0945, STAT [facility] maalox:diph enhydrAMINE :lidocaine 2 % viscous 1:1:1 ([facility]) oral suspension 15 mL 04-22 13:00: 00 04-22 12:55 :00 No 15mL 15 mL, Oral, ONCE, 1 dose, On Thu04/22/23 at 0800, Routine [facility] NaCl 0.9% (NS) IV infusion 1,000 mL 04-22 12:45: 00 Yes 1000mL at 999 mL/hr, Intravenou s, CONTINUOUS , Starting on Thu04/22/23 at 0745, Until Discontinu ed, Routine [facility] NaCl 0.9% (NS) bolus infusion 1,000 mL 04-22 10:30: 00 04-22 11:30 :00 No 1000mL at 999 mL/hr, 1,000 mL, IV Infusion, ONCE, 1 dose, On Thu04/22/23 at 0530, STAT [facility] ketorolac (TORADOL) injection 30 mg 04-22 10:30: 00 04-22 09:21 :00 No 30mg 30 mg, Slow IV Push, ONCE, 1 dose, On Thu04/22/23 at 0530, Routine [facility] diphenhydrA MINE (BENADRYL) injection 25 mg 04-22 09:30: 00 04-22 09:21 :00 No 25mg 25 mg, Slow IV Push, ONCE, 1 dose, On Thu04/22/23 at 0430, STAT [facility] metoclopram jerilyn HCl (REGLAN) injection 10 mg 04-22 09:30: 00 04-22 09:21 :00 No 10mg 10 mg, Slow IV Push, ONCE, 1 dose, On Thu04/22/23 at 0430, VASILIY [facility] NaCl 0.9% (NS) bolus infusion 1,000 mL 04-22 09:15: 00 04-22 10:28 :00 No 1000mL at 999 mL/hr, 1,000 mL, IV Infusion, ONCE, 1 dose, On Thu04/22/23 at 0415, STAT [facility] Tramadol HCl (ULTRAM) 50 MG oral Tablet 04-22 00:00: 00 10-06 00:00 :00 No 50mg Q.25D Take 1 tablet (50 mg total) by mouth every 6 hours as needed FOR PAIN. [facility] Ondansetron HCl 4 MG oral Tablet 04-22 00:00: 00 10-06 00:00 :00 No TAKE 1 TABLET BY MOUTH EVERY 8 HOURS NEEDED FOR NAUSEA AND VOMITING [facility] Promethazin e HCl (PHENERGAN) 25 MG oral Tablet 04-22 00:00: 00 10-06 00:00 :00 No 25mg Q.25D Take 1 tablet (25 mg total) by mouth every 6 hours as needed. [facility] lipase-prot ease-amylas e (CREON) 12,000-38,0 00 -60,000 unit capsule 2 capsule 04-16 14:15: 00 Yes 2{capsu le} 2 capsule, Oral, ONCE, 1 dose, On Carrie 04/16/23 at 0915, Routine [facility] famotidine (PEPCID (PF)) injection 20 mg 04-16 13:30: 00 04-16 12:33 :00 No 20mg 20 mg, Slow IV Push, ONCE NOW, 1 dose, On Carrie 04/16/23 at 0830, VASILIY [facility] dicyclomine (BENTYL) injection 20 mg 04-16 13:30: 00 04-16 12:34 :00 No 20mg 20 mg, Intramuscu lar, ONCE NOW, 1 dose, On Carrie 04/16/23 at 0830, Routine [facility] enalaprilat (VASOTEC I.V.) injection 1.25 mg 04-16 13:15: 00 04-16 13:17 :00 No 1.25mg 1.25 mg, Slow IV Push, ONCE, 1 dose, On Carrie 04/16/23 at 0815, STAT [facility] lactulose (CEPHULAC) solution 45 mL 04-16 13:15: 00 04-16 13:18 :00 No 45mL 45 mL, Oral, ONCE, 1 dose, On Carrie 04/16/23 at 0815, VASILIY [facility] ketorolac (TORADOL) injection 30 mg 04-16 13:15: 00 04-16 12:32 :00 No 30mg 30 mg, Slow IV Push, ONCE NOW, 1 dose, On Carrie 04/16/23 at 0815, VASILIY [facility] NaCl 0.9% (NS) bolus infusion 1,000 mL 04-16 13:15: 00 04-16 13:54 :00 No 1000mL at 999 mL/hr, 1,000 mL, IV Piggyback, ONCE, 1 dose, On Carrie 04/16/23 at 0815, STAT [facility] lipase-prot ease-amylas e (CREON) 3,000-9,500 - 15,000 unit capsule 04-16 00:00: 00 Yes [id number] 3000U Take 1 capsule by mouth in the morning and 1 capsule at noon and 1 capsule in the evening. Take with meals. [facility] hyoscyamine sulfate (LEVSIN/SL) 0.125 mg sublingual tablet 04-16 00:00: [id number] 2 tablets under the tongue every 6 (six) hours as needed (Abdominal pain or cramping). [facility] Famotidine (PEPCID) 20 MG oral tablet 04-16 00:00: 00 10-06 00:00 :00 No 20mg Take 1 tablet (20 mg total) by mouth 2 times daily. [facility] Bisacodyl (DULCOLAX) 5 MG oral Tablet Delayed Response 04-16 00:00: 00 10-06 00:00 :00 No 5mg QD Take 1 tablet (5 mg total) by mouth daily as needed. [facility] Lorazepam 1 MG oral Tablet 04-05 00:00: 00 10-06 00:00 :00 No 1mg Q.[id number] 3D Take 1 tablet (1 mg total) by mouth every 8 hours as needed. [facility] iopamidol (ISOVUE 370-500 mL) injection 100 mL 04-01 07:45: 00 04-01 06:58 :00 No [id number] 100mL 100 mL, Intravenou s, ONCE, 1 dose, On Thu04/01/23 at 0245, Routine [facility] famotidine (PEPCID (PF)) injection 20 mg 04-01 05:45: 00 04-01 06:09 :00 No 20mg 20 mg, Slow IV Push, ONCE, 1 dose, [facility]04/01/23 [facility] 0045[facility] F[facility] (SUBLIMAZE (PF)) injection 50 mcg 04-01 05:38: 00 04-01 06:10 :00 No 50ug 50 mcg, Slow IV Push, ONCE, 1 dose, On Thu04/01/23 at 0045, [facility] NaCl 0.9% (NS) IV infusion 1,000 mL 04-01 05:05: 00 04-01 06:30 :00 No 1000mL at 999 mL/hr, Intravenou s, ONCE, 1 dose, [facility]04/01/23 [facility] 0015[facility]ZOFRAN (PF[facility] 4 mg 04-01 05:05: 00 04-01 05:08 :00 No 4mg 4 mg, Slow IV Push, ONCE, 1 dose, On Thu04/01/23 at 0015, [facility] sodium chloride (NS) injection 5 mL 04-01 05:04: 36 Yes 5mL 5 mL, Intravenou s, PRN, Starting on Thu04/01/23 at 0004, Until Discontinu ed, Routine, IV line flushing [facility] ondansetron 4 mg disintegrat ing tablet 04-01 00:00: 00 Yes [id number] 4mg Take 1 tablet by mouth every 8 (eight) hours as needed for Nausea and Vomiting (N/V). [facility] traMADoL 50 mg tablet 04-01 00:00: 00 04-09 04:59 :00 No [id number] 50mg Take 1 tablet by mouth every 8 (eight) hours as needed for Pain (scale 4-6) for up to 7 days. Indication s: acute pain [facility] predniSONE (DELTASONE) tablet 40 mg 12-09 07:15: 00 12-09 06:33 :00 No 40mg 40 mg, Oral, ONCE, 1 dose, On Thu12/09/22 at 0215, [facility] traMADoL (ULTRAM) tablet 50 mg 12-09 07:15: 00 12-09 06:33 :00 No 50mg 50 mg, Oral, ONCE, 1 dose, On Thu12/09/22 at 0215, [facility] iopamidol (ISOVUE 370-500 mL) injection 100 mL 12-09 06:15: 12-09 06:15 :00 No [id number] 100mL 100 mL, Intravenou s, ONCE, 1 dose, On Thu12/09/22 at 0115, Routine [facility] ketorolac (TORADOL) injection 30 mg 12-09 06:15: 12-09 05:30 :00 No 30mg 30 mg, Slow IV Push, ONCE, 1 dose, On Thu12/09/22 at 0115, [facility] morpHINE (4 mg/mL) injection 4 mg 12-09 06:15: 12-09 05:30 :00 No 4mg 4 mg, Slow IV Push, ONCE, 1 dose, On Thu12/09/22 at 0115, [facility] NaCl 0.9% (NS) bolus infusion 1,000 mL 12-09 06:15: 00 12-09 06:33 :00 No 1000mL at 999 mL/hr, 1,000 mL, IV Infusion, ONCE, 1 dose, On Thu12/09/22 at 0115, [facility] ondansetron (ZOFRAN (PF)) injection 8 mg 12-09 05:30: 00 12-09 05:30 :00 No 8mg 8 mg, Slow IV Push, ONCE, 1 dose, On Thu12/09/22 at 0030, VASILIY [facility] traMADoL 50 mg tablet 12-09 00:00: 00 Yes [id number] 50mg Take 1 tablet by mouth every 6 (six) hours as needed (pain). Indication s: acute pain [facility] ondansetron 4 mg tablet 12-09 00:00: 00 Yes [id number] 1-2 tablets every 8 hours as needed for nausea [facility] predniSONE 20 mg tablet 12-09 00:00: 00 12-17 04:59 :00 No [id number] 40mg Take 2 tablets by mouth in the morning for 7 days. [facility] iopamidol (ISOVUE 370-500 mL) injection 100 mL 11-25 06:15: 00 11-25 06:15 :00 No [id number] 100mL 100 mL, Intravenou s, ONCE, 1 dose, On Thu11/25/22 at 0115, Routine [facility] NaCl 0.9% (NS) bolus infusion 1,000 mL 11-25 06:00: 00 11-25 07:00 :00 No 1000mL at 999 mL/hr, 1,000 mL, IV Infusion, ONCE, 1 dose, On Thu11/25/22 at 0100, STAT [facility] FENTanyl PF (SUBLIMAZE (PF)) injection 50 mcg 11-25 05:45: 00 11-25 05:03 :00 No 50ug 50 mcg, Slow IV Push, ONCE, 1 dose, On Thu11/25/22 at 0045, Routine [facility] ondansetron (ZOFRAN (PF)) injection 4 mg 11-25 05:00: 00 11-25 05:04 :00 No 4mg 4 mg, Slow IV Push, ONCE, 1 dose, On Thu11/25/22 at 0000, VASILIY [facility] Pancrelipas e, Lip-Prot-Am yl, (Creon) [id number] units oral Cap [address] Particles 10-13 00:00: 00 10-06 00:00 :00 No Luz Maria Callahana l lipase-prot ease-amylas e (CREON) 12,000-38,0 00 -60,000 unit capsule 2 capsule 10-12 23:00: 00 Yes 2{capsu le} 2 capsule, Oral, TID MEALS, First dose on 10/12/22 at 1700, Until Discontinu ed, Routine [facility] lisinopriL 10 mg tablet 10-12 17:56: 15 Yes 10mg Take 10 mg by mouth in the morning. [facility] meloxicam (MOBIC) tablet 7.5 mg 10-12 17:15: 00 Yes 7.5mg 7.5 mg, Oral, DAILY, First dose on 10/12/22 at 1115, Until Discontinu ed, Routine [facility] omeprazole (PRILOSEC) capsule 20 mg 10-12 15:00: 00 Yes 20mg 20 mg, Oral, DAILY, First dose on 10/12/22 at 0900, Until Discontinu ed, Routine [facility] Pantoprazol e Sodium 40 MG oral Tablet Delayed Response 10-12 00:00: 00 10-06 00:00 :00 No Luz Maria rea lipase-prot ease-amylas e 12,000-38,0 00 -60,000 unit capsule 10-12 00:00: 00 01-11 04:59 :00 No [id number] 2{capsu le} Take 2 capsules by mouth in the morning and 2 capsules at noon and 2 capsules in the evening. Take with meals. Do all this for 90 days. Do not crush or chew. [facility] meloxicam 7.5 mg tablet 10-12 00:00: 00 10-27 05:59 :00 No [id number] 7.5mg Take 1 tablet by mouth once daily as needed for Pain (scale 7-10) for up to 14 days. [facility] HYDROcodone -acetaminop hen 5-325 mg tablet 10-12 00:00: 00 10-20 05:59 :00 No [id number] 1{tbl} Take 1 tablet by mouth every 6 (six) hours as needed for Pain (scale 4-6) for up to 7 days. Indication s: acute pain [facility] amLODIPine (NORVASC) tablet 10 mg 10-11 20:00: 00 Yes 10mg 10 mg, Oral, DAILY, First dose on 10/11/22 at 1400, Until Discontinu ed, Routine [facility] lactated ringers IV infusion 1,000 mL 10-11 20:00: 00 10-12 14:03 :28 No 1000mL at 125 mL/hr, 1,000 mL, IV Infusion, CONTINUOUS , Starting on 10/11/22 at 1400, Until 10/12/22 at 0803, Routine [facility] HYDROcodone -acetaminop hen (NORCO 5) 5-325 mg tablet 1 tablet 10-11 19:35: 19 10-13 19:34 :19 No 1{tbl} 1 tablet, Oral, Q6HPRN, Starting on 10/11/22 at 1335, Until 10/13/22 at 1334, Routine, Pain (scale 4-6) [facility] acetaminoph en (TYLENOL) tablet 650 mg 10-11 19:35: 16 Yes 650mg 650 mg, Oral, Q6HPRN, Starting on 10/11/22 at 1335, Until Discontinu ed, Routine, Pain (scale 1-3) [facility] NaCl 0.9% (NS) bolus infusion 1,000 mL 10-11 16:45: 00 10-11 16:02 :00 No 1000mL at 999 mL/hr, 1,000 mL, Intravenou s, ONCE, 1 dose, On 10/11/22 at 1045, STAT [facility] ondansetron (ZOFRAN (PF)) injection 4 mg 10-11 16:15: 00 10-11 16:15 :00 No 4mg 4 mg, Slow IV Push, ONCE, 1 dose, On 10/11/22 at 1015, VASILIY [facility] morpHINE (4 mg/mL) injection 4 mg 10-11 16:15: 00 10-11 16:14 :00 No 4mg 4 mg, Slow IV Push, ONCE, 1 dose, On 10/11/22 at 1015, STAT [facility] iopamidol (ISOVUE 370-500 mL) injection 120 mL 10-11 15:45: 00 10-11 14:43 :00 No [id number] 120mL 120 mL, Intravenou s, ONCE, 1 dose, On 10/11/22 at 0945, Routine [facility] FENTanyl PF (SUBLIMAZE (PF)) injection 50 mcg 10-09 08:30: 00 10-09 07:23 :00 No 50ug 50 mcg, Slow IV Push, ONCE, 1 dose, On Carrie 10/09/22 at 0230, Routine [facility] iopamidol (ISOVUE 370-500 mL) injection 100 mL 10-09 07:15: 00 10-09 07:15 :00 No [id number] 100mL 100 mL, Intravenou s, ONCE, 1 dose, On Carrie 10/09/22 at 0115, Routine [facility] ketorolac (TORADOL) injection 30 mg 10-09 06:15: 00 10-09 05:25 :00 No 30mg 30 mg, Slow IV Push, ONCE, 1 dose, On Carrie 10/09/22 at 0015, Routine [facility] ondansetron (ZOFRAN) 4 mg tablet 10-09 00:00: 00 Yes [id number] 4mg Take 1 tablet by mouth every 8 (eight) hours as needed for Nausea and Vomiting (N/V). [facility] traMADoL (ULTRAM) 50 mg tablet 10-09 00:00: 00 Yes [id number] 50mg Take 1 tablet by mouth every 6 (six) hours as needed for Pain (scale 7-10). Indication s: acute pain [facility] ketorolac (TORADOL) injection 30 mg 2021-09 2-07 17:15: 00 08-20 16:35 :00 No 30mg 30 mg, Intramuscu lar, ONCE, 1 dose, On Thu08/20/22 at 1115, [facility] Amlodipine Besylate 10 MG oral Tablet 2021-09 00:00: 00 10-06 00:00 :00 No Luz Maria Ingramybfarooq - Externa rona morpHINE (4 mg/mL) injection 4 mg 06-09 13:15: 00 06-09 12:54 :00 No 4mg 4 mg, Slow IV Push, ONCE, 1 dose, On Thu06/09/22 at 0815, [facility] ketorolac (TORADOL) injection 30 mg 06-09 13:15: 00 06-09 12:55 :00 No 30mg 30 mg, Slow IV Push, ONCE, 1 dose, On Thu06/09/22 at 0815[facility] (ISOVUE 370-500 mL) injection 60 mL 06-09 13:07: 00 06-09 13:08 :00 No [id number] 60mL 60 mL, Intravenou s, ONCE, 1 dose, On Thu06/09/22 at 0815, Routine [facility] ondansetron (ZOFRAN (PF)) injection 4 mg 06-09 12:30: 00 06-09 12:54 :00 No 4mg 4 mg, Slow IV Push, ONCE, 1 dose, On Thu06/09/22 at 0730, [facility] dexamethaso ne sod phos PF injection 10 mg 06-09 12:30: 00 06-09 12:55 :00 No 10mg 10 mg, Slow IV Push, ONCE, 1 dose, On Thu06/09/22 at 0730, 1 mL [facility] traMADoL 50 mg tablet 06-09 00:00: 00 10-11 00:00 :00 No [id number] 50mg Take 1 tablet by mouth every 6 (six) hours as needed (pain). Indication s: acute pain [facility] lidocaine 5 % (700 mg/patch) patch 06-09 00:00: 00 10-11 00:00 :00 No [id number] Apply one patch to most painful area up to 12 hours a day as needed for pain. PHARMACIST : dispense one box [facility] predniSONE 20 mg tablet 06-09 00:00: 00 06-17 04:59 :00 No [id number] 40mg Take 2 tablets by mouth in the morning for 7 days. [facility] Dose Unknown 02-03 00:00: 00 No Dose Unknown 02-03 00:00: 00 No lisinopriL (PRINIVIL,Z ESTRIL) tablet 20 mg 11-01 03:00: 00 Yes 20mg 20 mg, Oral, QHS, First dose (after last modificati on) on Thu10/31/21 at 2100, Until Discontinu ed, Routine [facility] lisinopriL 20 mg tablet 11-01 00:00: 00 12-02 04:59 :00 No [id number] 20mg Take 1 tablet by mouth at bedtime for 30 days. [facility] lactated ringers IV infusion 1,000 mL 10-31 19:00: 00 Yes 1000mL at 75 mL/hr, 1,000 mL, IV Infusion, CONTINUOUS , Starting on Thu10/31/21 at 1300, Until Discontinu ed, Routine [facility] amLODIPine (NORVASC) tablet 10 mg 10-31 15:00: 00 Yes 10mg 10 mg, Oral, DAILY, First dose on Thu10/31/21 at 0900, Until Discontinu ed, Routine [facility] enoxaparin (LOVENOX) injection 40 mg 10-31 15:00: 00 Yes 40mg 40 mg, Subcutaneo us, DAILY, First dose on Thu10/31/21 at 0900, Until Discontinu ed, Routine [facility] lactated ringers IV infusion 1,000 mL 10-31 07:00: 00 10-31 18:45 :24 No 1000mL at 150 mL/hr, 1,000 mL, IV Infusion, CONTINUOUS , Starting on Thu10/31/21 at 0100, Until Thu10/31/21 at 1245, Routine [facility] lactated ringers IV infusion 1,000 mL 10-31 01:00: 00 10-31 06:52 :16 No 1000mL at 75 mL/hr, 1,000 mL, IV Infusion, CONTINUOUS , Starting on Thu10/30/21 at 1900, Until Thu10/31/21 at 0052, Routine [facility] morpHINE injection 4 mg 10-31 00:43: 35 11-01 00:42 :35 No 4mg 4 mg, Slow IV Push, Q4HPRN, Starting on Thu10/30/21 at 1843, Until Thu10/31/21 at 1842, Routine, Pain (scale 7-10) [facility] HYDROcodone -acetaminop hen (NORCO 5) 5-325 mg tablet 1 tablet 10-31 00:43: 32 11-02 00:42 :32 No 1{tbl} 1 tablet, Oral, Q6HPRN, Starting on Thu10/30/21 at 1843, Until Thu11/01/21 at 1842, Routine, Pain (scale 4-6) [facility] acetaminoph en (TYLENOL) tablet 650 mg 10-31 00:43: 22 Yes 650mg 650 mg, Oral, Q6HPRN, Starting on Thu10/30/21 at 1843, Until Discontinu ed, Routine, Pain (scale 1-3) [facility] ondansetron (ZOFRAN (PF)) injection 4 mg 10-30 21:15: 00 10-30 20:28 :00 No 4mg 4 mg, Slow IV Push, ONCE, 1 dose, On Thu10/30/21 at 1515, [facility] 4 mg 10-30 21:15: 00 10-30 20:29 :00 No 4mg 4 mg, Slow IV Push, ONCE, 1 dose, On Thu10/30/21 at 1515, STAT [facility] NaCl 0.9% (NS) bolus infusion 1,000 mL 10-30 21:15: 00 10-30 20:29 :00 No 1000mL at 999 mL/hr, 1,000 mL, IV Infusion, ONCE, 1 dose, On Thu10/30/21 at 1515, [facility] iopamidol (ISOVUE 370-500 mL) injection 100 mL 10-30 20:37: 00 10-30 20:35 :00 No [id number] 100mL 100 mL, Intravenou s, ONCE, 1 dose, On Thu10/30/21 at 1445, Routine [facility] lisinopril 10 mg tablet 2-03 00:00: 00 [...] 1 dose, Carrie 05/23/21 at 2245, STAT [facility] NaCl 0.9% (NS) bolus infusion 1,000 mL 05-24 03:00: 00 05-24 03:00 :00 No 1000mL at 999 mL/hr, 1,000 mL, IV Piggyback, ONCE, 1 dose, Carrie 05/23/21 at 2200, STAT [facility] NaCl 0.9% (NS) bolus infusion 500 mL 05-23 03:15: 00 05-23 15:14 :00 No 500mL at 999 mL/hr, 500 mL, IV Piggyback, ONCE, 1 dose, Thu05/22/21 at 2215, STAT [facility] dexamethaso ne (DECADRON PHOSPHATE) injection 10 mg 04-02 03:30: 00 04-02 02:47 :00 No 10mg 10 mg, Intramuscu lar, ONCE, 1 dose, 04/01/21 at 2230, STAT [facility] ketorolac (TORADOL) injection 60 mg 03-18 04:00: 00 03-18 02:56 :00 No 60mg 60 mg, Intramuscu lar, ONCE, 1 dose, Thu03/17/21 at 2300, [facility] : EMERGENCY ROOM, [facility] ibuprofen 800 mg tablet 03-17 00:00: 00 05-23 00:00 :00 No [id number] 800mg Take 1 tablet by mouth every 8 (eight) hours as needed for Pain (scale 4-6). [facility] acetaminoph en-codeine 300-30 mg tablet 03-17 00:00: 00 03-25 04:59 :00 No [id number] 1{tbl} Take 1 tablet by mouth every 6 (six) hours as needed for Pain (scale 7-10) for up to 7 days. Indication s: acute pain [facility] benzonatate (TESSALON PERLES) capsule 200 mg 11-15 05:00: 00 11-15 04:51 :00 No 200mg 200 mg, Oral, ONCE, 1 dose, Thu11/14/20 at 2300, Routine [facility] Dose Unknown 11-14 00:00: 00 No Dose Unknown - 00:00: 00 No benzonatate 100 mg capsule - 00:00: 00 05-23 00:00 :00 No [id number] 100mg Take 1 capsule by mouth 3 (three) times daily as needed for Cough. [facility] diphenhydrA MINE (BENADRYL) injection 25 mg 09-30 16:00: 00 09-30 15:17 :00 No 25mg 25 mg, Slow IV Push, ONCE, 1 dose, 09/30/20 at 1000, STAT [facility] metoclopram jerilyn HCl (REGLAN) injection 10 mg 09-30 16:00: 00 09-30 15:17 :00 No 10mg 10 mg, Slow IV Push, ONCE, 1 dose, 09/30/20 at 1000, VASILIY [facility] NaCl 0.9% (NS) bolus infusion 1,000 mL 09-30 15:00: 00 09-30 16:45 :00 No 1000mL at 999 mL/hr, 1,000 mL, IV Infusion, ONCE, 1 dose, 09[facility]30/20 at 0900[facility] amLOD[facility] (NORVASC) 10 mg tablet 09-30 00:00: 00 Yes [id number] 10mg Take 1 tablet by mouth daily. [facility] lisinopriL 10 mg tablet 09-30 00:00: 00 11-01 00:00 :00 No [id number] 10mg Take 1 tablet by mouth at bedtime. [facility] Dose Unknown 2019-09 0 00:00: 00 No Dose Unknown 2019-09 0 00:00: 00 No maalox:diph enhydrAMINE :lidocaine 2 % viscous 1:1:1 (FIRST-MOUT HWASH BLM) oral suspension 15 mL 2019-09 03:30: 00 07-02 03:30 :00 No 15mL 15 mL, Oral, ONCE, 1 dose, 07/01/20 at 2230, [facility] sodium chloride (NS) injection 5 mL 2019-09 03:00: 48 Yes 5mL 5 mL, Intravenou s, PRN, Starting 07/01/20 at 2200, Until Discontinu ed, Routine, IV line flushing [facility] sucralfate 1 gram tablet 2019-09 00:00: 00 07-16 05:59 :00 No [id number] 1g Take 1 tablet by mouth before meals and at bedtime for 14 days. [facility] lisinopril 10 mg tablet 04-12 00:00: 00 No 1mg amlodipine 10 mg tablet 04-12 00:00: 00 No 1mg No known medications No Un [facility] Immunizations Ordered Immunization Name Filled Immunization Name Date Status Comments Source SARS-COV-2 COVID-19 PFIZER VACCINE 2021-05-07 00:00:00 Completed [facility] SARS-COV-2 COVID-19 PFIZER VACCINE 2021-05-07 00:00:00 Completed [facility] SARS-COV-2 COVID-19 PFIZER VACCINE 2021-05-07 00:00:00 Completed [facility] SARS-COV-2 COVID-19 PFIZER VACCINE 2021-05-07 00:00:00 Completed [facility] SARS-COV-2 COVID-19 PFIZER VACCINE 2021-05-07 00:00:00 Completed [facility] SARS-COV-2 COVID-19 PFIZER VACCINE 2021-05-07 00:00:00 Completed [facility] SARS-COV-2 COVID-19 PFIZER VACCINE 2021-05-07 00:00:00 Completed [facility] SARS-COV-2 COVID-19 PFIZER VACCINE 2021-05-07 00:00:00 Completed [facility] SARS-COV-2 COVID-19 PFIZER VACCINE 2021-05-07 00:00:00 Completed [facility] SARS-COV-2 COVID-19 PFIZER VACCINE 2021-05-07 00:00:00 Completed [facility] SARS-COV-2 COVID-19 PFIZER VACCINE 2021-05-07 00:00:00 Completed [facility] SARS-COV-2 COVID-19 PFIZER VACCINE 2021-05-07 00:00:00 Completed [facility] SARS-COV-2 COVID-19 PFIZER VACCINE 2021-05-07 00:00:00 Completed [facility] SARS-COV-2 COVID-19 PFIZER VACCINE 2021-05-07 00:00:00 Completed [facility] SARS-COV-2 COVID-19 PFIZER VACCINE 2021-05-07 00:00:00 Completed [facility] SARS-COV-2 COVID-19 PFIZER VACCINE 2021-05-07 00:00:00 Completed [facility] SARS-COV-2 COVID-19 PFIZER VACCINE 2021-05-07 00:00:00 Completed [facility] SARS-COV-2 COVID-19 PFIZER VACCINE 2021-05-07 00:00:00 Completed [facility] SARS-COV-2 COVID-19 PFIZER VACCINE 2021-05-07 00:00:00 Completed [facility] SARS-COV-2 COVID-19 PFIZER VACCINE 2021-05-07 00:00:00 Completed [facility] SARS-COV-2 COVID-19 PFIZER VACCINE 2021-05-07 00:00:00 Completed [facility] SARS-COV-2 COVID-19 PFIZER VACCINE 2021-05-07 00:00:00 Completed [facility] SARS-COV-2 COVID-19 PFIZER VACCINE 2021-05-07 00:00:00 Completed [facility] SARS-COV-2 COVID-19 PFIZER VACCINE 2021-05-07 00:00:00 Completed [facility] SARS-COV-2 COVID-19 PFIZER VACCINE 2021-05-07 00:00:00 Completed [facility] SARS-COV-2 COVID-19 PFIZER VACCINE Unknown Completed [facility] SARS-COV-2 COVID-19 PFIZER VACCINE Unknown Completed [facility] SARS-COV-2 COVID-19 PFIZER VACCINE Unknown Completed [facility] SARS-COV-2 COVID-19 PFIZER VACCINE Unknown Completed [facility] SARS-COV-2 COVID-19 PFIZER VACCINE Unknown Completed [facility] SARS-COV-2 COVID-19 PFIZER VACCINE Unknown Completed [facility] SARS-COV-2 COVID-19 PFIZER VACCINE Unknown Completed [facility] SARS-COV-2 COVID-19 PFIZER VACCINE Unknown Completed [facility] SARS-COV-2 COVID-19 PFIZER VACCINE Unknown Completed [facility] SARS-COV-2 COVID-19 PFIZER VACCINE Unknown Completed [facility] SARS-COV-2 COVID-19 PFIZER VACCINE Unknown Completed [facility] SARS-COV-2 COVID-19 PFIZER VACCINE Unknown Completed [facility] SARS-COV-2 COVID-19 PFIZER VACCINE Unknown Completed [facility] SARS-COV-2 COVID-19 PFIZER VACCINE Unknown Completed [facility] SARS-COV-2 COVID-19 PFIZER VACCINE Unknown Completed [facility] SARS-COV-2 COVID-19 PFIZER VACCINE Unknown Completed [facility] SARS-COV-2 COVID-19 PFIZER VACCINE Unknown Completed [facility] SARS-COV-2 COVID-19 PFIZER VACCINE Unknown Completed [facility] Vital Signs Vital Name Observation Time Observation Value Comments S ource Systolic blood pressure 2023-12-17 20:32:00 112 mm[Hg] Luz Maria Seybo ld - External Diastolic blood pressure 2023-12-17 20:32:00 80 mm[Hg] Luz Maria Ingramybo ld - External Heart rate 2023-12-17 20:07:00 96 /min Kel y Seybold - External Body temperature 2023-12-17 20:07:00 36.44 Cindi Luz Maria Seybold - External Respiratory rate 2023-12-17 20:07:00 15 /min Luz Maria Ingramybold - External Body height 2023-12-17 20:07:00 195.6 cm Kelsi hampton Seybold - External Body weight 2023-12-17 20:07:00 125.193 kg Kelsi ey Seybold - External BMI 2023-12-17 20:07:00 32.73 kg/m2 Kelsi hampton Seybold - External Oxygen saturation in Arterial blood by Pulse oximetry 2023-12-17 20:07:00 100 /min Luz Maria Riverao ld - External Heart rate 2023-12-10 03:57:00 70 /min [facility] Respiratory rate 2023-12-10 03:57:00 16 /min [facility] Oxygen saturation in Arterial blood by Pulse oximetry 2023-12-10 03:57:00 99 /min [facility] Systolic blood pressure 2023-12-10 03:57:00 157 mm[Hg] [facility] Diastolic blood pressure 2023-12-10 03:57:00 83 mm[Hg] [facility] Body temperature 2023-12-10 01:12:00 36.83 Cindi [facility] Body height 2023-12-10 01:12:00 195.6 cm [facility] Body weight 2023-12-10 01:12:00 122.471 kg [facility] BMI 2023-12-10 01:12:00 32.02 kg/m2 [facility] Systolic blood pressure 2023-10-06 20:55:00 130 mm[Hg] Luz Maria Seybo ld - External Diastolic blood pressure 2023-10-06 20:55:00 80 mm[Hg] Luz Maria Seybo ld - External Heart rate 2023-10-06 20:14:00 98 /min Sallie y ybold - External Body temperature 2023-10-06 20:14:00 36.56 Cindi Luz Maria Ingramybold - External Respiratory rate 2023-10-06 20:14:00 18 /min Luz Maria Ingramybold - External Body height 2023-10-06 20:14:00 195.6 cm Kelsi ey Seybold - External Body weight 2023-10-06 20:14:00 127.007 kg Kelsi ey Seybold - External BMI 2023-10-06 20:14:00 33.20 kg/m2 Kelsi hampton Seybold - External Oxygen saturation in Arterial blood by Pulse oximetry 2023-10-06 20:14:00 94 /min Luz Maria Ingramybo ld - External Systolic blood pressure 2023-08-04 05:38:00 164 mm[Hg] [facility] Diastolic blood pressure 2023-08-04 05:38:00 99 mm[Hg] [facility] Heart rate 2023-08-04 05:38:00 70 /min [facility] Body temperature 2023-08-04 05:38:00 37 Cindi [facility] Respiratory rate 2023-08-04 05:38:00 18 /min [facility] Oxygen saturation in Arterial blood by Pulse oximetry 2023-08-04 05:38:00 98 /min [facility] Body height 2023-08-04 02:22:00 195.6 cm [facility] Body weight 2023-08-04 02:22:00 118.389 kg [facility] BMI 2023-08-04 02:22:00 30.95 kg/m2 [facility] Systolic blood pressure 2023-07-25 18:00:00 146 mm[Hg] [facility] Diastolic blood pressure 2023-07-25 18:00:00 90 mm[Hg] [facility] Heart rate 2023-07-25 18:00:00 75 /min [facility] Respiratory rate 2023-07-25 18:00:00 18 /min [facility] Oxygen saturation in Arterial blood by Pulse oximetry 2023-07-25 18:00:00 95 /min [facility] Body temperature 2023-07-25 15:57:00 37.61 Cindi [facility] Body height 2023-07-25 15:57:00 195.6 cm [facility] Body weight 2023-07-25 15:57:00 118.842 kg [facility] BMI 2023-07-25 15:57:00 31.07 kg/m2 [facility] Systolic blood pressure 2023-07-24 21:05:00 140 mm[Hg] [facility] Diastolic blood pressure 2023-07-24 21:05:00 94 mm[Hg] [facility] Heart rate 2023-07-24 21:05:00 71 /min [facility] Body temperature 2023-07-24 21:05:00 36.67 Cindi [facility] Respiratory rate 2023-07-24 21:05:00 18 /min [facility] Oxygen saturation in Arterial blood by Pulse oximetry 2023-07-24 21:05:00 97 /min [facility] Body weight 2023-07-24 18:35:00 115.667 kg [facility] BMI 2023-07-24 18:35:00 30.24 kg/m2 [facility] Systolic blood pressure 2023-07-12 03:30:00 156 mm[Hg] [facility] Diastolic blood pressure 2023-07-12 03:30:00 101 mm[Hg] [facility] Heart rate 2023-07-12 03:30:00 90 /min [facility] Respiratory rate 2023-07-12 03:30:00 20 /min [facility] Oxygen saturation in Arterial blood by Pulse oximetry 2023-07-12 03:30:00 94 /min [facility] Body temperature 2023-07-12 01:57:00 36.67 Cindi [facility] Body weight 2023-07-12 01:57:00 115.667 kg [facility] BMI 2023-07-12 01:57:00 30.24 kg/m2 [facility] Systolic blood pressure 2023-07-10 13:34:00 140 mm[Hg] [facility] Diastolic blood pressure 2023-07-10 13:34:00 95 mm[Hg] [facility] Heart rate 2023-07-10 13:34:00 76 /min [facility] Body temperature 2023-07-10 13:34:00 35.94 Cindi [facility] Body height 2023-07-10 13:34:00 195.6 cm [facility] Body weight 2023-07-10 13:34:00 118.298 kg [facility] BMI 2023-07-10 13:34:00 30.93 kg/m2 [facility] Oxygen saturation in Arterial blood by Pulse oximetry 2023-07-10 13:34:00 97 /min [facility] Systolic blood pressure 2023-07-08 13:43:00 140 mm[Hg] Luz Maria Seybo ld - External Diastolic blood pressure 2023-07-08 13:43:00 100 mm[Hg] Luz Maria Seybo [facility] - External Heart rate 2023-07-08 13:43:00 68 /min Kel y Seybold - External Body temperature 2023-07-08 [...] Systolic blood pressure 2023-07-03 12:45:10 149 mm[Hg] [facility] Diastolic blood pressure 2023-07-03 12:45:10 88 mm[Hg] [facility] Heart rate 2023-07-03 12:45:10 88 /min [facility] Respiratory rate 2023-07-03 12:45:10 16 /min [facility] Oxygen saturation in Arterial blood by Pulse oximetry 2023-07-03 12:45:10 97 /min [facility] Body temperature 2023-07-03 09:47:00 36.78 Cindi [facility] Body height 2023-07-03 09:47:00 195.6 cm [facility] Body weight 2023-07-03 09:47:00 113.853 kg [facility] BMI 2023-07-03 09:47:00 29.76 kg/m2 [facility] Systolic blood pressure 2023-05-20 20:08:00 132 mm[Hg] [...] Systolic blood pressure 2023-05-08 03:30:00 133 mm[Hg] [facility] Diastolic blood pressure 2023-05-08 03:30:00 87 mm[Hg] [facility] Heart rate 2023-05-08 03:30:00 70 /min [facility] Respiratory rate 2023-05-08 03:30:00 18 /min [facility] Oxygen saturation in Arterial blood by Pulse oximetry 2023-05-08 03:30:00 97 /min [facility] Body temperature 2023-05-07 22:36:00 36.72 Cindi [facility] Body weight 2023-05-07 22:36:00 113.853 kg [facility] BMI 2023-05-07 22:36:00 30.55 kg/m2 [facility] Systolic blood pressure 2023-05-02 05:00:00 134 mm[Hg] [facility] Diastolic blood pressure 2023-05-02 05:00:00 85 mm[Hg] [facility] Heart rate 2023-05-02 05:00:00 72 /min [facility] Oxygen saturation in Arterial blood by Pulse oximetry 2023-05-02 05:00:00 98 /min [facility] Body temperature 2023-05-02 02:28:00 37.28 Cindi [facility] Respiratory rate 2023-05-02 02:28:00 20 /min [facility] Body height 2023-05-02 02:28:00 193 cm [facility] Body weight 2023-05-02 02:28:00 113.399 kg [facility] BMI 2023-05-02 02:28:00 30.43 kg/m2 [facility] Systolic blood pressure 2023-04-22 18:02:36 130 mm[Hg] [facility] Diastolic blood pressure 2023-04-22 18:02:36 80 mm[Hg] [facility] Heart rate 2023-04-22 18:02:36 68 /min [facility] Body temperature 2023-04-22 18:02:36 36.78 Cindi [facility] Respiratory rate 2023-04-22 18:02:36 17 /min [facility] Oxygen saturation in Arterial blood by Pulse oximetry 2023-04-22 18:02:36 96 /min [facility] Body height 2023-04-22 08:58:00 195.6 cm [facility] Body weight 2023-04-22 08:58:00 113.944 kg [facility] BMI 2023-04-22 08:58:00 29.79 kg/m2 [facility] Systolic blood pressure 2023-04-16 13:30:00 142 mm[Hg] [facility] Diastolic blood pressure 2023-04-16 13:30:00 98 mm[Hg] [facility] Heart rate 2023-04-16 13:30:00 65 /min [facility] Respiratory rate 2023-04-16 13:30:00 17 /min [facility] Oxygen saturation in Arterial blood by Pulse oximetry 2023-04-16 13:30:00 98 /min [facility] Systolic blood pressure 2023-04-16 12:32:00 155 mm[Hg] [facility] Diastolic blood pressure 2023-04-16 12:32:00 108 mm[Hg] [facility] Heart rate 2023-04-16 12:32:00 61 /min [facility] Respiratory rate 2023-04-16 12:32:00 18 /min [facility] Oxygen saturation in Arterial blood by Pulse oximetry 2023-04-16 12:32:00 97 /min [facility] Body temperature 2023-04-16 12:09:00 36.72 Cindi [facility] Body weight 2023-04-16 12:09:00 118.842 kg [facility] BMI 2023-04-16 12:09:00 31.89 kg/m2 [facility] Systolic blood pressure 2023-04-01 08:00:00 130 mm[Hg] [facility] Diastolic blood pressure 2023-04-01 08:00:00 75 mm[Hg] [facility] Heart rate 2023-04-01 08:00:00 75 /min [facility] Respiratory rate 2023-04-01 08:00:00 19 /min [facility] Oxygen saturation in Arterial blood by Pulse oximetry 2023-04-01 08:00:00 96 /min [facility] Body temperature 2023-04-01 05:02:00 36.28 Cindi [facility] Body height 2023-04-01 05:02:00 193 cm [facility] Body weight 2023-04-01 05:02:00 111.585 kg [facility] BMI 2023-04-01 05:02:00 29.94 kg/m2 [facility] Systolic blood pressure 2023-02-13 21:00:00 157 mm[Hg] [facility] Diastolic blood pressure 2023-02-13 21:00:00 89 mm[Hg] [facility] Heart rate 2023-02-13 21:00:00 102 /min [facility] Body temperature 2023-02-13 21:00:00 37.89 Cindi [facility] Respiratory rate 2023-02-13 21:00:00 16 /min [facility] Body weight 2023-02-13 21:00:00 124.286 kg [facility] BMI 2023-02-13 21:00:00 33.35 kg/m2 [facility] Oxygen saturation in Arterial blood by Pulse oximetry 2023-02-13 21:00:00 97 /min [facility] Systolic blood pressure 2022-12-09 06:33:00 152 mm[Hg] [facility] Diastolic blood pressure 2022-12-09 06:33:00 96 mm[Hg] [facility] Heart rate 2022-12-09 06:33:00 60 /min [facility] Respiratory rate 2022-12-09 06:33:00 11 /min [facility] Oxygen saturation in Arterial blood by Pulse oximetry 2022-12-09 06:33:00 96 /min [facility] Body temperature 2022-12-09 04:51:00 37 Cindi [facility] Body height 2022-12-09 04:51:00 193 cm [facility] Body weight 2022-12-09 04:51:00 116.121 kg [facility] BMI 2022-12-09 04:51:00 31.16 kg/m2 [facility] Systolic blood pressure 2022-11-25 04:51:00 148 mm[Hg] [facility] Diastolic blood pressure 2022-11-25 04:51:00 96 mm[Hg] [facility] Heart rate 2022-11-25 04:51:00 71 /min [facility] Body temperature 2022-11-25 04:51:00 37 Cindi [facility] Respiratory rate 2022-11-25 04:51:00 16 /min [facility] Body height 2022-11-25 04:51:00 193 cm [facility] Body weight 2022-11-25 04:51:00 113.399 kg [facility] BMI 2022-11-25 04:51:00 30.43 kg/m2 [facility] Oxygen saturation in Arterial blood by Pulse oximetry 2022-11-25 04:51:00 97 /min [facility] Systolic blood pressure 2022-10-12 21:48:00 152 mm[Hg] [facility] Diastolic blood pressure 2022-10-12 21:48:00 82 mm[Hg] [facility] Heart rate 2022-10-12 21:48:00 70 /min [facility] Body temperature 2022-10-12 21:48:00 36.89 Cindi [facility] Respiratory rate 2022-10-12 21:48:00 18 /min [facility] Oxygen saturation in Arterial blood by Pulse oximetry 2022-10-12 21:48:00 94 /min [facility] Body height 2022-10-11 17:50:00 193 cm [facility] Body weight 2022-10-11 17:50:00 113.399 kg [facility] BMI 2022-10-11 17:50:00 30.43 kg/m2 [facility] Systolic blood pressure 2022-10-09 07:25:23 138 mm[Hg] [facility] Diastolic blood pressure 2022-10-09 07:25:23 86 mm[Hg] [facility] Heart rate 2022-10-09 07:25:23 73 /min [facility] Respiratory rate 2022-10-09 07:25:23 20 /min [facility] Oxygen saturation in Arterial blood by Pulse oximetry 2022-10-09 07:25:23 98 /min [facility] Body temperature 2022-10-09 04:12:00 37.28 Cindi [facility] Body height 2022-10-09 04:12:00 193 cm [facility] Body weight 2022-10-09 04:12:00 113.399 kg [facility] BMI 2022-10-09 04:12:00 30.43 kg/m2 [facility] Systolic blood pressure 2022-08-20 14:40:00 147 mm[Hg] [facility] Diastolic blood pressure 2022-08-20 14:40:00 95 mm[Hg] [facility] Heart rate 2022-08-20 14:40:00 75 /min [facility] Body temperature 2022-08-20 14:40:00 36.89 Cindi [facility] Respiratory rate 2022-08-20 14:40:00 20 /min [facility] Body height 2022-08-20 14:40:00 190.5 cm [facility] Body weight 2022-08-20 14:40:00 115.667 kg [facility] BMI 2022-08-20 14:40:00 31.87 kg/m2 [facility] Oxygen saturation in Arterial blood by Pulse oximetry 2022-08-20 14:40:00 98 /min [facility] height 2022-07-11 09:30:00 77 [in_i] [facility] weight 2022-07-11 09:30:00 253.6 [lb_av] Co [facility] temperature 2022-07-11 09:30:00 98.3 [degF] Com mon [facility] bmi 2022-07-11 09:30:00 30.07 kg/m2 [facility] oximetry 2022-07-11 09:30:00 99 % [facility] respiratory rate 2022-07-11 09:30:00 18 /min [facility] blood pressure systolic 2022-07-11 09:30:00 135 mm[Hg] [facility] blood pressure diastolic 2022-07-11 09:30:00 81 mm[Hg] [facility] Systolic blood pressure 2022-06-09 15:00:00 141 mm[Hg] [facility] Diastolic blood pressure 2022-06-09 15:00:00 94 mm[Hg] [facility] Heart rate 2022-06-09 15:00:00 59 /min [facility] Respiratory rate 2022-06-09 15:00:00 16 /min [facility] Oxygen saturation in Arterial blood by Pulse oximetry 2022-06-09 15:00:00 97 /min [facility] Body temperature 2022-06-09 11:56:00 36.17 [facility] Body height 2022-06-09 11:56:00 195.6 cm [facility] Body weight 2022-06-09 11:56:00 127.007 kg [facility] BMI 2022-06-09 11:56:00 33.20 kg/m2 [facility] Systolic blood pressure 2021-11-01 17:12:00 152 mm[Hg] [facility] Diastolic blood pressure 2021-11-01 17:12:00 89 mm[Hg] [facility] Heart rate 2021-11-01 17:12:00 72 /min [facility] Body temperature 2021-11-01 17:12:00 36.17 Cindi [facility] Respiratory rate 2021-11-01 17:12:00 18 /min [facility] Oxygen saturation in Arterial blood by Pulse oximetry 2021-11-01 17:12:00 94 /min [facility] Body height 2021-10-30 23:19:00 195.6 cm [facility] Body weight 2021-10-30 23:19:00 116.983 kg [facility] BMI 2021-10-30 23:19:00 30.58 kg/m2 [facility] Systolic blood pressure 2021-05-24 06:00:00 135 mm[Hg] [facility] Diastolic blood pressure 2021-05-24 06:00:00 97 mm[Hg] [facility] Heart rate 2021-05-24 06:00:00 88 /min [facility] Respiratory rate 2021-05-24 06:00:00 21 /min [facility] Oxygen saturation in Arterial blood by Pulse oximetry 2021-05-24 06:00:00 94 /min [facility] Body temperature 2021-05-24 01:47:00 37.28 Cindi [facility] Body height 2021-05-24 01:47:00 195.6 cm [facility] Body weight 2021-05-24 01:47:00 127.461 kg [facility] BMI 2021-05-24 01:47:00 33.32 kg/m2 [facility] Systolic blood pressure 2021-05-22 23:36:00 154 mm[Hg] [facility] Diastolic blood pressure 2021-05-22 23:36:00 112 mm[Hg] [facility] Heart rate 2021-05-22 23:36:00 97 /min [facility] Body temperature 2021-05-22 23:36:00 36 Cindi [facility] Respiratory rate 2021-05-22 23:36:00 19 /min [facility] Body height 2021-05-22 23:36:00 195.6 cm [facility] Body weight 2021-05-22 23:36:00 127.007 kg [facility] BMI 2021-05-22 23:36:00 33.20 kg/m2 [facility] Oxygen saturation in Arterial blood by Pulse oximetry 2021-05-22 23:36:00 96 /min [facility] Systolic blood pressure 2021-05-02 00:01:00 157 mm[Hg] [facility] Diastolic blood pressure 2021-05-02 00:01:00 93 mm[Hg] [facility] Heart rate 2021-05-02 00:01:00 84 /min [facility] Body temperature 2021-05-02 00:01:00 36.56 Cindi [facility] Respiratory rate 2021-05-02 00:01:00 18 /min [facility] Body weight 2021-05-02 00:01:00 126.554 kg [facility] BMI 2021-05-02 00:01:00 33.08 kg/m2 [facility] Oxygen saturation in Arterial blood by Pulse oximetry 2021-05-02 00:01:00 97 /min [facility] Systolic blood pressure 2021-04-02 01:01:00 144 mm[Hg] [facility] Diastolic blood pressure 2021-04-02 01:01:00 94 mm[Hg] [facility] Heart rate 2021-04-02 01:01:00 89 /min [facility] Body temperature 2021-04-02 01:01:00 37.06 Cindi [facility] Respiratory rate 2021-04-02 01:01:00 18 /min [facility] Body weight 2021-04-02 01:01:00 129.729 kg [facility] BMI 2021-04-02 01:01:00 33.91 kg/m2 [facility] Oxygen saturation in Arterial blood by Pulse oximetry 2021-04-02 01:01:00 100 /min [facility] Systolic blood pressure 2021-04-02 01:01:00 144 mm[Hg] [facility] Diastolic blood pressure 2021-04-02 01:01:00 94 mm[Hg] [facility] Heart rate 2021-04-02 01:01:00 89 /min [facility] Body temperature 2021-04-02 01:01:00 37.06 Cindi [facility] Respiratory rate 2021-04-02 01:01:00 18 /min [facility] Body weight 2021-04-02 01:01:00 129.729 kg [facility] BMI 2021-04-02 01:01:00 33.91 kg/m2 [facility] Oxygen saturation in Arterial blood by Pulse oximetry 2021-04-02 01:01:00 100 /min [facility] Systolic blood pressure 2021-03-18 03:16:13 140 mm[Hg] [facility] Diastolic blood pressure 2021-03-18 03:16:13 80 mm[Hg] [facility] Heart rate 2021-03-18 03:16:13 80 /min [facility] Body temperature 2021-03-18 03:16:13 36.67 [facility] Respiratory rate 2021-03-18 03:16:13 19 /min [facility] Oxygen saturation in Arterial blood by Pulse oximetry 2021-03-18 03:16:13 99 /min [facility] Body weight 2021-03-18 01:02:00 129.729 kg [facility] BMI 2021-03-18 01:02:00 33.91 kg/m2 [facility] Systolic blood pressure 2021-03-18 03:16:13 140 mm[Hg] [facility] Diastolic blood pressure 2021-03-18 03:16:13 80 mm[Hg] [facility] Heart rate 2021-03-18 03:16:13 80 /min [facility] Body temperature 2021-03-18 03:16:13 36.67 [facility] Respiratory rate 2021-03-18 03:16:13 19 /min [facility] Oxygen saturation in Arterial blood by Pulse oximetry 2021-03-18 03:16:13 99 /min [facility] Body weight 2021-03-18 01:02:00 129.729 kg [facility] BMI 2021-03-18 01:02:00 33.91 kg/m2 [facility] Oxygen saturation in Arterial blood by Pulse oximetry 2020-11-15 04:31:00 97 /min [facility] Systolic blood pressure 2020-11-15 03:25:00 173 mm[Hg] [facility] Diastolic blood pressure 2020-11-15 03:25:00 97 mm[Hg] [facility] Heart rate 2020-11-15 03:25:00 84 /min [facility] Body temperature 2020-11-15 03:25:00 36.67 Cindi [facility] Respiratory rate 2020-11-15 03:25:00 20 /min [facility] Body weight 2020-11-15 03:25:00 132.45 kg [facility] BMI 2020-11-15 03:25:00 34.63 kg/m2 [facility] Oxygen saturation in Arterial blood by Pulse oximetry 2020-11-15 04:31:00 97 /min [facility] Systolic blood pressure 2020-11-15 03:25:00 173 mm[Hg] [facility] Diastolic blood pressure 2020-11-15 03:25:00 97 mm[Hg] [facility] Heart rate 2020-11-15 03:25:00 84 /min [facility] Body temperature 2020-11-15 03:25:00 36.67 Cindi [facility] Respiratory rate 2020-11-15 03:25:00 20 /min [facility] Body weight 2020-11-15 03:25:00 132.45 kg [facility] BMI 2020-11-15 03:25:00 34.63 kg/m2 [facility] Systolic blood pressure 2020-09-30 16:30:00 121 mm[Hg] [facility] Diastolic blood pressure 2020-09-30 16:30:00 66 mm[Hg] [facility] Heart rate 2020-09-30 16:30:00 72 /min [facility] Respiratory rate 2020-09-30 16:30:00 19 /min [facility] Oxygen saturation in Arterial blood by Pulse oximetry 2020-09-30 16:30:00 94 /min [facility] Body weight 2020-09-30 14:20:00 136.079 kg [facility] BMI 2020-09-30 14:20:00 35.57 kg/m2 [facility] Body temperature 2020-09-30 14:10:00 37.06 Cindi [facility] Systolic blood pressure 2020-09-30 16:30:00 121 mm[Hg] [facility] Diastolic blood pressure 2020-09-30 16:30:00 66 mm[Hg] [facility] Heart rate 2020-09-30 16:30:00 72 /min [facility] Respiratory rate 2020-09-30 16:30:00 19 /min [facility] Oxygen saturation in Arterial blood by Pulse oximetry 2020-09-30 16:30:00 94 /min [facility] Body weight 2020-09-30 14:20:00 136.079 kg [facility] BMI 2020-09-30 14:20:00 35.57 kg/m2 [facility] Body temperature 2020-09-30 14:10:00 37.06 Cindi [facility] Systolic blood pressure 2020-07-02 04:00:00 132 mm[Hg] [facility] Diastolic blood pressure 2020-07-02 04:00:00 84 mm[Hg] [facility] Heart rate 2020-07-02 04:00:00 89 /min [facility] Oxygen saturation in Arterial blood by Pulse oximetry 2020-07-02 04:00:00 95 /min [facility] Body temperature 2020-07-02 02:53:00 36.94 Cindi [facility] Respiratory rate 2020-07-02 02:53:00 18 /min [facility] Body height 2020-07-02 02:53:00 195.6 cm [facility] Body weight 2020-07-02 02:53:00 136.079 kg [facility] BMI 2020-07-02 02:53:00 35.57 kg/m2 [facility] Systolic blood pressure 2020-07-02 04:00:00 132 mm[Hg] [facility] Diastolic blood pressure 2020-07-02 04:00:00 84 mm[Hg] [facility] Heart rate 2020-07-02 04:00:00 89 /min [facility] Oxygen saturation in Arterial blood by Pulse oximetry 2020-07-02 04:00:00 95 /min [facility] Body temperature 2020-07-02 02:53:00 36.94 Cindi [facility] Respiratory rate 2020-07-02 02:53:00 18 /min [facility] Body height 2020-07-02 02:53:00 195.6 cm [facility] Body weight 2020-07-02 02:53:00 136.079 kg [facility] BMI 2020-07-02 02:53:00 35.57 kg/m2 [facility] BP Systolic 2022-07-09 10:22:00 158 mm[Hg] BP [...] /min Respiratory Rate 2021-11-20 17:16:00 17.00 /min Respiratory Rate 2021-10-17 16:20:00 BP Systolic 2021-10-17 16:20:00 157 mm[Hg] BP Diastolic 2021-10-17 16:20:00 97 mm[Hg] Weight Measured 2021-10-17 16:20:00 266.80 pounds Height Measured 2021-10-17 16:20:00 77.00 inches Body Temperature 2021-10-17 16:20:00 98.70 degrees Heart Rate 2021-10-17 16:20:00 92.00 /min BP Systolic 2021-03-20 11:57:00 136 mm[Hg] BP [...] Performed Performing Clinician Source CT ABDOMEN PELVIS W CONTRAST 2023-12-10 02:36:24 Abraham Orantes [facility] COMP. METABOLIC PANEL ([id number]) 2023-12-10 02:05:00 Abraham Orantes [facility] CBC WITH DIFF 2023-12-10 02:05:00 Abraham Orantes [facility] URINALYSIS 2023-12-10 02:05:00 Abraham Orantes [facility] CT ABDOMEN PELVIS WO CONTRAST 2023-08-04 04:23:15 Abraham Orantes [facility] BASIC METABOLIC PANEL (NA, K, CL, CO2, GLUCOSE, BUN, CREATININE, CA) 2023-08-04 02:57:00 Abraham Orantes [facility] CBC WITH DIFF 2023-08-04 02:57:00 Abraham Orantes [facility] URINALYSIS 2023-08-04 02:57:00 Abraham Orantes [facility] NOTICE OF PRIVACY PRACTICES 2023-08-04 02:16:09 Doctor Unassigned, [place] [facility] CONSENT/REFUSAL FOR DIAGNOSIS AND TREATMENT 2023-08-04 02:15:41 Doctor Unassigned, [place] [facility] LIPASE 2023-07-25 16:37:00 Trevor Taylor [facility] MAGNESIUM 2023-07-25 16:37:00 Trevor Taylor [facility] TROPONIN I 2023-07-25 16:37:00 Trevor Taylor [facility] COMP. METABOLIC PANEL ([id number]) 2023-07-25 16:37:00 Trevor Taylor [facility] CBC WITH DIFF 2023-07-25 16:37:00 Trevor Taylor [facility] URINALYSIS 2023-07-25 16:37:00 Trevor Taylor [facility] CONSENT/REFUSAL FOR DIAGNOSIS AND TREATMENT 2023-07-25 15:41:41 Doctor Unassigned, [place] [facility] US GALL BLADDER 2023-07-24 22:46:02 Johnathan Avila Pet er [facility] URINALYSIS 2023-07-24 20:10:00 Johnathan Avila [facility] EXTRA TUBE URINE CULTURE 2023-07-24 20:10:00 Ember Avila [facility] LIPASE 2023-07-24 20:09:00 Johnathan Avila [facility] COMP. METABOLIC PANEL ([id number]) 2023-07-24 20:09:00 Johnathan Avila [facility] LIPID PANEL ([id number])(TOTAL CHOLESTEROL, TRIGLYCERIDES, HDL) 2023-07-24 20:09:00 Johnathan Avila [facility] CBC WITH DIFF 2023-07-24 20:09:00 Johnathan Avila [facility] CONSENT/REFUSAL FOR DIAGNOSIS AND TREATMENT 2023-07-24 18:31:11 Doctor [place]ass[place], [place] [facility] XR CHEST 2 VW 2023-07-12 03:54:00 [facility] 2023-07-12 02:31:00 [facility] TR[facility] 2023-07-12 02:14:00 Norm Saleh [facility] COMP. METABOLIC PANEL ([id number]) 2023-07-12 02:14:00 Norm Saleh [facility] CBC WITH DIFF 2023-07-12 02:14:00 Norm Saleh [facility] COVID-19 (ID NOW RAPID TESTING) 2023-07-12 02:14:00 Norm Saleh [facility] CONSENT/REFUSAL FOR DIAGNOSIS AND TREATMENT 2023-07-12 01:47:09 Doctor [place]ass[place] [facility] CONSENT FOR MEDICAL TREATMENT OF A MINOR 2023-07-10 05:01:00 Doctor [place]ass[place] [facility] CT ABDOMEN PELVIS W CONTRAST 2023-07-03 10:43:57 LubnaerHaresh chan [facility] URINALYSIS 2023-07-03 10:23:00 DeedeefderHaresh chan [facility] LIPASE 2023-07-03 10:11:00 DeedeefderHaresh chan [facility] COMP. METABOLIC PANEL ([id number]) 2023-07-03 10:11:00 Haresh Santamaria [facility] CBC WITH DIFF 2023-07-03 10:11:00 Haresh Santamaria Darlin [facility] CONSENT/REFUSAL FOR DIAGNOSIS AND TREATMENT 2023-07-03 09:36:41 Doctor [place]ass[place] [facility] CT ABDOMEN PELVIS W CONTRAST 2023-05-08 02:15:59 Riya Joseph Connie [facility] HB ABO GROUPING 2023-05-08 01:25:00 Elvin Joseph [facility] LIPASE 2023-05-08 01:19:00 Elvin Joseph Marie [facility] COMP. METABOLIC PANEL ([id number]) 2023-05-08 01:19:00 Riya Joseph Connie [facility] CBC WITH DIFF 2023-05-08 01:19:00 Elvin Joseph [facility] COVID-19 (ID NOW RAPID TESTING) 2023-05-08 01:19:00 Riya Joseph [facility] CONSENT/REFUSAL FOR DIAGNOSIS AND TREATMENT 2023-05-07 22:22:14 Doctor [place]ass[place] [facility] LIPASE 2023-05-02 03:01:00 Aydin Matos [facility] COMP. METABOLIC PANEL ([id number]) 2023-05-02 03:01:00 Aydin Matos [facility] ETHANOL 2023-05-02 03:01:00 Aydin Matos [facility] CBC WITH DIFF 2023-05-02 03:01:00 Aydin Matos [facility] URINALYSIS 2023-05-02 03:01:00 Aydin Matos [facility] URINE DRUG (IMMUNOASSAY) - COMPREHENSIVE DRUG SCREEN W/O REFLEX 2023-05-02 03:01:00 Aydin Matos [facility] CONSENT/REFUSAL FOR DIAGNOSIS AND TREATMENT 2023-05-02 02:28:20 Doctor [place]ass[place] [facility] BASIC METABOLIC PANEL (NA, K, CL, CO2, GLUCOSE, BUN, CREATININE, CA) 2023-04-22 16:47:00 Natali Alexander [facility] LIPASE 2023-04-22 12:58:00 Natali Alexander [facility] BASIC METABOLIC PANEL (NA, K, CL, CO2, GLUCOSE, BUN, CREATININE, CA) 2023-04-22 12:58:00 Natali Alexander [facility] URINALYSIS 2023-04-22 11:44:00 Abraham Orantes [facility] CREATINE KINASE 2023-04-22 09:06:00 Natali Alexandre [facility] LIPASE 2023-04-22 09:06:00 Natali Alexander [facility] COMP. METABOLIC PANEL ([id number]) 2023-04-22 09:06:00 Abraham Orantes [facility] CBC WITH DIFF 2023-04-22 09:06:00 Abraham Orantes [facility] CONSENT/REFUSAL FOR DIAGNOSIS AND TREATMENT 2023-04-22 08:52:58 Doctor [place]ass[place], [place] [facility] LIPASE 2023-04-16 12:30:00 Adelaide Goodwin [facility] TROPONIN I 2023-04-16 12:30:00 Adelaide Goodwin [facility] COMP. METABOLIC PANEL ([id number]) 2023-04-16 12:30:00 Adelaide Goodwin [facility] CBC WITH DIFF 2023-04-16 12:30:00 Adelaide Goodwin [facility] CONSENT/REFUSAL FOR DIAGNOSIS AND TREATMENT 2023-04-16 11:48:23 Doctor [place]assigned, [place] [facility] LIPASE 2023-04-01 05:08:00 Hemalatha [facility] TROPONIN I 2023-04-01 05:08:00 Hemalatha Mora [facility] COMP. METABOLIC PANEL ([id number]) 2023-04-01 05:08:00 Hemalatha Mora [facility] CBC WITH DIFF 2023-04-01 05:08:00 Hemalatha [facility] URINALYSIS 2023-04-01 05:08:00 Hemalatha Mora [facility] CONSENT/REFUSAL FOR DIAGNOSIS AND TREATMENT 2023-04-01 04:51:45 Doctor [place]assigned, [place] [facility] ASSIGNMENT OF BENEFITS 2023-02-13 21:19:49 Docto r Unassigned, [place] [facility] POCT GLUCOSE (AUTOMATED) 2023-02-13 21:00:00 Alan Gonzales [facility] CONSENT/REFUSAL FOR DIAGNOSIS AND TREATMENT 2023-02-13 20:50:30 Doctor Unassigned, [place] [facility] REFERRAL- REQUEST/RESPONSE 2023-01-05 05:01:00 Doctor [place]assigned, [place] [facility] LIPASE 2022-12-09 05:03:00 Soham Clarke [facility] COMP. METABOLIC PANEL ([id number]) 2022-12-09 05:03:00 Soham Clarke [facility] CBC WITH DIFF 2022-12-09 05:03:00 [facility] 2022-12-09 05:03:00 Soham Clarke [facility] NOTICE OF PRIVACY PRACTICES 2022-12-09 04:46:36 Doctor Unassigned, [place] [facility] CONSENT/REFUSAL FOR DIAGNOSIS AND TREATMENT 2022-12-09 04:46:16 Doctor [place]assigned, [place] [facility] CT ABDOMEN PELVIS W CONTRAST 2022-11-25 05:38:20 Lion Nascimento [facility] LIPASE 2022-11-25 05:06:00 Lion Nascimento [facility] HEPATIC FUNCTION PANEL ([id number]) (ALB,T.PRO,BILI T,BU/BC,ALT,AST,ALK PHOS) 2022-11-25 05:06:00 Azam [facility] BASIC METABOLIC PANEL (NA, K, CL, CO2, GLUCOSE, BUN, CREATININE, CA) 2022-11-25 05:06:00 Azam [facility] CBC WITH DIFF 2022-11-25 05:06:00 [facility] URIN[facility]YSIS 2022-11-25 05:06:00 Azam [facility] CONSENT/REFUSAL FOR DIAGNOSIS AND TREATMENT 2022-11-25 04:35:51 Doctor [place]ass[place], [place] [facility] EXTERNAL PROVIDER RECORDS 2022-10-23 06:01:00 Do ctor Unassigned, [place] [facility] CBC WITH DIFF 2022-10-12 21:26:00 Lb Bates [facility] PROSTATIC SPECIFIC ANTIGEN 2022-10-12 10:48:00 Jonh Roman [facility] HEPATIC FUNCTION PANEL ([id number]) (ALB,T.PRO,BILI T,BU/BC,ALT,AST,ALK PHOS) 2022-10-12 10:48:00 Lb Bates [facility] BASIC METABOLIC PANEL (NA, K, CL, CO2, GLUCOSE, BUN, CREATININE, CA) 2022-10-12 10:48:00 Lb Bates [facility] CBC WITH DIFF 2022-10-12 10:48:00 Lb Bates Un [facility] HEPATIC FUNCTION PANEL ([id number]) (ALB,T.PRO,BILI T,BU/BC,ALT,AST,ALK PHOS) 2022-10-11 23:53:00 Lb Bates [facility] BASIC METABOLIC PANEL (NA, K, CL, CO2, GLUCOSE, BUN, CREATININE, CA) 2022-10-11 23:53:00 Lb Bates [facility] US GALL BLADDER 2022-10-11 22:28:58 Jana [facility] ABORH CONFIRMATION (LAB ONLY) 2022-10-11 21:24:00 Jana [facility] URINALYSIS 2022-10-11 21:23:00 Lb Bates Uni [facility] HB ABO GROUPING 2022-10-11 20:41:00 Jana [facility] CBC WITH DIFF 2022-10-11 20:35:00 [facility]/PELVIS 2022-10-11 14:52:00 Aydin Matos [facility] HB ECG ROUTINE & RHYTHM STRIP 2022-10-11 13:48:04 Aydin Matos [facility] LIPASE 2022-10-11 13:42:00 Aydin Matos [facility] TROPONIN I 2022-10-11 13:42:00 Aydin Matos [facility] COMP. METABOLIC PANEL ([id number]) 2022-10-11 13:42:00 Aydin Matos [facility] LIPID PANEL ([id number])(TOTAL CHOLESTEROL, TRIGLYCERIDES, HDL) 2022-10-11 13:42:00 Jana [facility] CBC WITH DIFF 2022-10-11 13:42:00 Aydin Matos [facility] PROTHROMBIN TIME / INR 2022-10-11 13:42:00 Nicholas Matos [facility] ACTIVATED PARTIAL THRMPLAS TAE 2022-10-11 13:42:00 Aydin Matos [facility] N-TERMINAL PRO-BNP 2022-10-11 13:42:00 Aydin Matos [facility] URINE DRUG (IMMUNOASSAY) - COMPREHENSIVE DRUG SCREEN W/O REFLEX 2022-10-11 13:42:00 Aydin Matos [facility] CONSENT/REFUSAL FOR DIAGNOSIS AND TREATMENT 2022-10-11 12:24:48 Doctor [place]ass[place] [facility] CT ABDOMEN PELVIS W CONTRAST 2022-10-09 06:30:25 Abraham Orantes [facility] LIPASE 2022-10-09 05:24:00 Abraham Orantes [facility] COMP. METABOLIC PANEL ([id number]) 2022-10-09 05:24:00 Abraham Orantes [facility] CBC WITH DIFF 2022-10-09 05:24:00 Abraham Orantes [facility] URINALYSIS 2022-10-09 05:24:00 Abraham Orantes [facility] CONSENT/REFUSAL FOR DIAGNOSIS AND TREATMENT 2022-10-09 03:56:57 Doctor Unassigned, [place] [facility] COMP. METABOLIC PANEL ([id number]) 2022-08-20 15:11:00 Trevor Taylor [facility] CBC WITH DIFF 2022-08-20 15:11:00 Trevor Taylor [facility] URINALYSIS 2022-08-20 15:11:00 Trevor [facility] CONSENT/REFUSAL FOR DIAGNOSIS AND TREATMENT 2022-08-20 14:32:58 Doctor [place]ass[place], [place] [facility] CT ABDOMEN PELVIS W CONTRAST 2022-06-09 13:12:35 Soham Clarke [facility] LIPASE 2022-06-09 12:48:00 Soham Clarke [facility] COMP. METABOLIC PANEL ([id number]) 2022-06-09 12:48:00 Soham Clarke [facility] CBC WITH DIFF 2022-06-09 12:48:00 [facility] 2022-06-09 12:48:00 Soham Clarke [facility] NOTICE OF PRIVACY PRACTICES 2022-06-09 11:47:39 Doctor [place]assigned, [place] [facility] CONSENT/REFUSAL FOR DIAGNOSIS AND TREATMENT 2022-06-09 11:47:18 Doctor [place]assigned, [place] [facility] PHOSPHORUS 2021-11-01 09:55:00 Jerrica [facility] MAGNESIUM 2021-11-01 09:55:00 Jerrica [facility]xton [facility] BASIC METABOLIC PANEL (NA, K, CL, CO2, GLUCOSE, BUN, CREATININE, CA) 2021-11-01 09:55:00 Darshan [facility] CBC WITH DIFF 2021-11-01 09:55:00 [facility] 2021-10-31 08:45:00 Leela [facility] CREATINE KINASE 2021-10-31 08:45:00 Roxanne Swenosn [facility] MAGNESIUM 2021-10-31 08:45:00 Emelia Gallego [facility] TROPONIN I 2021-10-31 08:45:00 Leela [facility] COMP. METABOLIC PANEL (01536) 2021-10-31 08:45:00 Leela [facility] CBC WITH DIFF 2021-10-31 08:45:00 Emelia Gallego [facility] PROTHROMBIN TIME / INR 2021-10-31 08:45:00 Leela [facility] N-TERMINAL PRO-BNP 2021-10-31 08:45:00 Leela [facility] LACTIC ACID WHOLE BLOOD 2021-10-31 08:45:00 Erwin Swenson [facility] FECES CULTURE 2021-10-30 22:27:00 Monica Hernandez [facility] OCCULT (GUAIAC) BLOOD 2021-10-30 22:27:00 Juany Hernandez [facility] CLOSTRIDIUM DIFFICILE TOXIN 2021-10-30 22:27:00 Monica Hernandez [facility] COVID-19 (ID NOW RAPID TESTING) 2021-10-30 21:24:00 Madison Sepulveda [facility] LAB ONLY COVID INTERPRETATION 2021-10-30 21:24:00 Madison Sepulveda [facility] CT ABDOMEN PELVIS W CONTRAST 2021-10-30 20:44:09 Madison Sepulveda [facility] LIPASE 2021-10-30 20:25:00 Madison Sepulveda U [facility] TROPONIN I 2021-10-30 20:25:00 Roxanne Swenson [facility] COMP. METABOLIC PANEL ([id number]) 2021-10-30 20:25:00 Madison Sepulveda [facility] CBC WITH DIFF 2021-10-30 20:25:00 Madison Sepulveda [facility] URINALYSIS 2021-10-30 20:25:00 Madison Sepulveda [facility] N-TERMINAL PRO-BNP 2021-10-30 20:25:00 Roxanne Swenson [facility] CONSENT/REFUSAL FOR DIAGNOSIS AND TREATMENT 2021-10-30 19:24:05 Doctor [place]ass[place], [place] [facility] CREATINE KINASE 2021-05-24 04:40:00 Felipe Ortega [facility] BASIC METABOLIC PANEL (NA, K, CL, CO2, GLUCOSE, BUN, CREATININE, CA) 2021-05-24 04:40:00 Felipe Ortega [facility] URINALYSIS 2021-05-24 02:14:00 Felipe Ortega [facility] CREATINE KINASE 2021-05-24 01:53:00 Felipe Ortega [facility] TROPONIN I 2021-05-24 01:53:00 Felipe Ortega [facility] COMP. METABOLIC PANEL ([id number]) 2021-05-24 01:53:00 Felipe Ortega [facility] CBC WITH DIFF 2021-05-24 01:53:00 Felipe Ortega [facility] N-TERMINAL PRO-BNP 2021-05-24 01:53:00 Felipe Ortega [facility] ASSIGNMENT OF BENEFITS 2021-05-23 00:46:04 Docto r Unassigned, [place] [facility] CONSENT/REFUSAL FOR DIAGNOSIS AND TREATMENT 2021-05-22 23:31:57 Doctor Unassigned, [place] [facility] SARS-COV-2 COVID-19 VACCINE,0.3ML,IM (PFIZER) 2021-05-07 16:12:40 Doctor [place]assigned, [place] [facility] RAPID STREP SCREEN FOR GROUP A 2021-05-02 00:07:00 Aydin Matos [facility] COVID-19 (ID NOW RAPID TESTING) 2021-05-02 00:07:00 Aydin Matos [facility] CONSENT/REFUSAL FOR DIAGNOSIS AND TREATMENT 2021-05-01 23:56:07 Doctor [place]assigned, [place] [facility] RAPID STREP SCREEN FOR GROUP A 2021-04-02 01:05:00 [facility] (ID NOW RAPID TESTING) 2021-04-02 01:05:00 Nikhil Blanton [facility] NOTICE OF PRIVACY PRACTICES 2021-04-02 00:56:18 Doctor Unassigned, [place] [facility] CONSENT/REFUSAL FOR DIAGNOSIS AND TREATMENT 2021-04-02 00:49:05 Doctor Unassigned, [place] [facility] XR WRIST 3+ VW LEFT 2021-03-18 01:19:59 Destini Blanton [facility] URINALYSIS 2021-03-18 01:12:00 Nikhil Blanton [facility] CONSENT/REFUSAL FOR DIAGNOSIS AND TREATMENT 2021-03-18 00:56:01 Doctor [place]assigned, [place] [facility] XR CHEST 1 VW 2020-11-15 03:48:28 Darnell Hsu [facility] CONSENT/REFUSAL FOR DIAGNOSIS AND TREATMENT 2020-11-15 03:11:27 Doctor Unassigned, [place] [facility] CT HEAD WO CONTRAST 2020-09-30 15:00:43 Jessica Siddiqui ra [facility] XR CHEST 1 VW 2020-09-30 14:37:13 [facility] 2020-09-30 14:25:00 Jessy Siddiqui [facility] TROPONIN I 2020-09-30 14:25:00 Jessy Siddiqui [facility] COMP. METABOLIC PANEL ([id number]) 2020-09-30 14:25:00 Jessy Siddiqui [facility] CBC WITH DIFF 2020-09-30 14:25:00 Jessy Siddiqui U [facility] N-TERMINAL PRO-BNP 2020-09-30 14:25:00 Solitario Siddiqui [facility] NOTICE OF PRIVACY PRACTICES 2020-09-30 13:57:13 Doctor [place]ass[place], [place] [facility] CONSENT/REFUSAL FOR DIAGNOSIS AND TREATMENT 2020-09-30 13:55:57 Doctor [place]ass[place], [place] [facility] EKG-12 LEAD 2020-07-02 03:20:42 Felipe Ortega [facility] LIPASE 2020-07-02 03:05:00 Abraham Orantes [facility] TROPONIN I 2020-07-02 03:05:00 Felipe Ortega [facility] COMP. METABOLIC PANEL ([id number]) 2020-07-02 03:05:00 Abraham Orantes [facility] CBC WITH DIFF 2020-07-02 03:05:00 Abraham Orantes [facility] NOTICE OF PRIVACY PRACTICES 2020-07-02 02:48:43 Doctor Unassigned, [place] [facility] CONSENT/REFUSAL FOR DIAGNOSIS AND TREATMENT 2020-07-02 02:46:14 Doctor [place]assigned, [place] [facility] Plan of Care Planned Activity Planned Date Details Comments Source Goal Plan of Care Note [code = 03893-1] Goal Plan of Care Note [code = 96286-4] Goal Plan of Care Note [code = 28091-7] Goal Plan of Care Note [code = 93451-6] Goal Plan of Care Note [code = 38859-0] Goal Plan of Care Note [code = 10817-5] Goal Plan of Care Note [code = 95827-8] Goal Plan of Care Note [code = 49368-6] Goal Plan of Care Note [code = 50853-6] Goal Plan of Care Note [code = 55957-2] Goal Plan of Care Note [code = 04429-7] Goal Plan of Care Note [code = 58132-1] Goal Plan of Care Note [code = 70264-2] Goal Plan of Care Note [code = 77521-0] Goal Plan of Care Note [code = 68551-8] Encounters Start Date/Time End Date/Time Encounter Type Admission Type Attending [facility] Facility Care Department Encounter ID Source 2022-07-29 14:17:02 Outpatient Mayuri James [facility] [id number] [facility] 2022-07-11 08:20:03 Outpatient Mayuri James [facility] [id number] [facility] 2024-03-30 08:30:00 2024-03-30 08:30:00 Outpatient GIBRAN VILLALBA [id number] [facility] 2024-01-26 00:00:00 2024-01-26 00:00:00 Outpatient HAYDEN ORTIZ [id number] [facility] 2024-01-15 00:00:00 2024-01-15 00:00:00 Outpatient HAYDEN ORTIZ [id number] [facility] 2023-12-28 00:00:00 2023-12-28 00:00:00 Outpatient HAYDEN ORTIZ [id number] [facility] 2023-12-18 00:00:00 2023-12-18 00:00:00 Outpatient LUZ MARIA HOLLIDAY [id number] [facility] 2023-12-17 15:30:00 2023-12-17 15:30:00 Outpatient HAYDEN ORTIZ [id number] [facility] 2023-12-11 00:00:00 2023-12-11 00:00:00 Outpatient HAYDEN ORTIZ [id number] [facility] 2023-12-09 20:14:00 2023-12-09 23:50:00 Emergency X ABRAHAM ORANTES [facility] [id number] [facility] 2023-12-09 20:14:00 2023-12-09 23:50:00 Emergency Abraham Orantes [facility] [id number] 350.1.13.10 4.2.7.2.686 [id number] [facility] 2023-11-24 00:00:00 2023-11-24 00:00:00 Outpatient PREYUDY MILNERHERACLIO HOLLIDAY [id number] [facility] 2023-11-18 00:00:00 2023-11-18 00:00:00 Letter (Out) Chavez Turner [facility] 1.2.840.114 350.1.13.10 4.2.7.2.686 [id number] [facility] 2023-11-10 14:00:00 2023-11-10 14:00:00 Outpatient PREZAS, HAYDENHERACLIO HOLLIDAY [id number] [facility] 2023-11-09 00:00:00 2023-11-09 00:00:00 Outpatient PREZAS, HAYDENHERACLIO HOLLIDAY [id number] [facility] 2023-11-06 00:00:00 2023-11-06 00:00:00 Outpatient PREZAS, HAYDEN HOLLIDAY [id number] [facility] 2023 11:30:00 2023 11:30:00 Outpatient CALLIE THORNE [facility] [id number] [facility] 2023-10-16 00:00:00 2023-10-16 00:00:00 Outpatient PREZASYUDYHAYDENHERACLIO HOLLIDAY [id number] [facility] 2023-10-13 00:00:00 2023-10-13 00:00:00 Outpatient LUZ MARIA HOLLIDAY [id number] [facility] 2023-10-06 14:30:00 2023-10-06 14:30:00 Outpatient PREZAS HAYDEN HOLLIDAY [id number] [facility] 2023-08-14 00:00:00 2023-08-14 00:00:00 Outpatient MERLYN WORTHINGTON [facility] [id number] [facility] 2023-08-13 00:00:00 2023-08-13 00:00:00 Patient Secure Msg Doctor Unassigned, [place] [facility] 1.840.114 350.1.13.10 4.2.7.2.686 [id number] [facility] 2023-08-11 16:15:00 2023-08-11 16:15:00 Outpatient ADAN CHESTER [facility] [id number] [facility] 2023-08-03 20:26:00 2023-08-04 00:05:00 Emergency X YOHANACHANDRAKANTRUDY BAKERMAGDIEL [facility] ERT [id number] [facility] 2023-08-03 20:26:00 2023-08-04 00:05:00 Emergency Abraham Orantes Birgit [facility] 1.84.114 350.1.13.10 4.2.7.2.686 [id number] [facility] 2023-08-03 00:00:00 2023-08-03 00:00:00 Outpatient KIARA RICHARDSON [facility] [id number] [facility] 2023-08-03 00:00:00 2023-08-03 00:00:00 Orders Only Doctor Unassigned, [place] [facility] 1.84.114 350.1.13.10 4.2.7.2.686 [id number] [facility] 2023-07-25 09:58:00 2023-07-25 12:56:00 Emergency X Trevor TAYLOR [facility] ERT [id number] [facility] 2023-07-25 09:58:00 2023-07-25 12:56:00 Emergency Trevor Taylor [facility] 1.840.114 350.1.13.10 4.2.7.2.686 [id number] [facility] 2023-07-24 12:36:00 2023-07-24 17:49:00 Emergency X JOHNATHAN AVILA [facility] ERT [id number] [facility] 2023-07-24 12:36:00 2023-07-24 17:49:00 Emergency Johnathan Avila Olegario [facility] 1..840.114 350.1.13.10 4.2.7.2.686 [id number] [facility] 2023-07-24 14:30:00 2023-07-24 14:30:00 Outpatient ADAN CHESTER [id number] Luz Maria Ng 2023-07-24 00:00:00 2023-07-24 00:00:00 Telephone Merlyn Hidalgo [facility] .840.114 350.1.13.10 4.2.7.2.686 [id number] [facility] 2023-07-23 05:22:00 2023-07-23 10:02:00 Emergency EM Jessie Paul [facility] [id number] 66 [facility] 2023-07-22 00:00:00 2023-07-22 00:00:00 Telephone Merlyn Hidalgo [facility] ..840.114 350.1.13.10 4.2.7.2.686 [id number] [facility] 2023-07-22 00:00:00 2023-07-22 00:00:00 Patient Secure Msg Doctor Unassigned, [place] [facility] [employer] 1..840.114 350.1.13.10 4.2.7.2.686 [id number] [facility] 2023-07-20 00:00:00 2023-07-20 00:00:00 Telephone Merlyn Hidalgo [facility] 1.2.840.114 350.1.13.10 4.2.7.2.686 [id number] [facility] 2023-07-17 13:45:00 2023-07-17 13:45:00 Outpatient JIMMY BRENNAN [id number] Luz Maria Ng 2023-07-11 20:53:00 2023-07-11 23:38:00 Emergency X STEPHIE HEWITT [facility] ERT [id number] [facility] 2023-07-11 20:53:00 2023-07-11 23:38:00 Emergency Erna Hewitta [facility] 1.840.114 350.1.13.10 4.2.7.2.686 [id number] [facility] 2023-07-10 08:45:00 2023-07-10 12:03:37 Outpatient R MERLYN HIDALGO [facility] [id number] [facility] 2023-07-10 08:45:00 2023-07-10 12:03:37 Office Visit Emerald [facility] 1..840.114 350.1.13.10 4.2.7.2.686 [id number] [facility] 2023-07-10 00:00:00 2023-07-10 00:00:00 Orders Only Doctor Unassigned, [place] [facility] 1.2.840.114 350.1.13.10 4.2.7.2.686 [id number] [facility] 2023-07-08 09:15:00 2023-07-08 09:15:00 Outpatient KIARA RICHARDSON [id number] Luz Maria Ng 2023-07-03 04:49:00 2023-07-03 09:47:00 Emergency MIRIAM LIN DIETRICH [facility] ERT [id number] [facility] 2023-07-03 04:49:00 2023-07-03 09:47:00 Emergency Haresh Santamaria Darlin Ludwig Ellis [facility] 1..840.114 350.1.13.10 4.2.7.2.686 [id number] [id number] [facility] 2023-07-01 22:56:00 2023-07-02 01:00:00 Emergency Jessie Billingsley [facility] ER [id number] [facility] 2023-05-20 15:50:00 2023-05-20 15:50:00 Outpatient LAB56 LUZ MARIA HOLLIDAY [id number] Luz Maria [facility] 2023-05-20 15:15:00 2023-05-20 15:15:00 Outpatient KIARA RICHARDSON [id number] [facility]23-[facility]-07 17:37:00 2023-05-07 23:23:00 [facility] ERT [id number] [facility] 2023-05-07 17:37:00 2023-05-07 23:23:00 Emergency Kelsi sharma [facility] [place] 1..840.114 350.1.13.10 4.2.7.2.686 [id number] [facility] 2023-05-01 21:39:00 2023-05-02 00:35:00 Emergency X AYDIN MATOS [facility] ERT [id number] [facility] 2023-05-01 21:39:00 2023-05-02 00:35:00 Emergency Aydin Matos [facility] 1..840.114 350.1.13.10 4.2.7.2.686 [id number] [id number] [facility] 2023-04-22 03:51:00 2023-04-22 13:11:00 Emergency X NATALI ALEXANDER [facility] ERT [id number] [facility] 2023-04-22 03:51:00 2023-04-22 13:11:00 Emergency Abraham Orantes Jaymieminnie [facility] 1.840.114 350.1.13.10 4.2.7.2.686 [id number] [facility] 2023-04-16 07:09:00 2023-04-16 09:00:00 Emergency X ADELAIDE GOODWIN [facility] ERT [id number] [facility] 2023-04-16 07:09:00 2023-04-16 09:00:00 Emergency Christa Adelaide [facility] 1.840.114 350.1.13.10 4.2.7.2.686 [id number] [facility] 2023-03-31 23:59:00 2023-04-01 03:24:00 Emergency X HEMALATHA MORA [facility] ERT [id number] [facility] 2023-03-31 23:59:00 2023-04-01 03:24:00 Emergency Hemalatha Mora [facility] 1.840.114 350.1.13.10 4.2.7.2.686 [id number] [facility] 2023-02-13 16:02:00 2023-02-13 17:25:00 Emergency X GONZALESJESSICA [facility] ERT [id number] [facility] 2023-02-13 16:02:00 2023-02-13 17:25:00 Emergency Jessica Gonzales [facility] 1.840.114 350.1.13.10 4.2.7.2.686 [id number] [facility] 2023-01-05 00:00:00 2023-01-05 00:00:00 Orders Only Doctor Unassigned, [place] [facility] 1.2.840.114 350.1.13.10 4.2.7.2.686 [id number] [id number] [facility] 2022-12-29 17:25:40 2022-12-29 17:25:40 Outpatient SFA [id number] 0417 Dewey Ponce 2022-12-09 00:01:00 2022-12-09 01:39:00 Emergency X SOHAM CLARKE [facility] ERT [id number] [facility] 2022-12-09 00:01:00 2022-12-09 01:39:00 Emergency Soham Clarke [facility] 1.2.840.114 350.1.13.10 4.2.7.2.686 [id number] 084 [id number] [facility] 2022-11-24 23:44:00 2022-11-25 02:56:00 Emergency X AYDIN MATOS [facility] ERT [id number] [facility] 2022-11-24 23:44:00 2022-11-25 02:56:00 Emergency AzamLion [facility] 1.2.840.114 350.1.13.10 4.2.7.2.686 [id number] 084 [id number] [facility] 2022-10-25 00:00:00 2022-10-25 00:00:00 Patient Secure Msg Doctor Unassigned, [place] [facility] 1.2.840.114 350.1.13.10 4.2.7.2.686 [id number] [facility] 2022-10-23 00:00:00 2022-10-23 00:00:00 Orders Only Doctor Unassigned, [place] [facility] 1.2.840.114 350.1.13.10 4.2.7.2.686 [id number] [facility] 2022-10-11 06:41:00 2022-10-12 17:56:00 Outpatient X MARK HERNANDEZ [facility] MARTI [id number] [facility] 2022-10-11 06:41:00 2022-10-12 17:56:00 Emergency Aydin Matos Norman M [facility] 1.2.840.114 350.1.13.10 4.2.7.2.686 [id number] [facility] 2022-10-08 22:15:00 2022-10-09 01:39:00 Emergency X ABRAHAM ORANTES [facility] ERT [id number] [facility] 2022-10-08 22:15:00 2022-10-09 01:39:00 Emergency Abraham Orantes [facility] 1.2.840.114 350.1.13.10 4.2.7.2.686 [id number] 084 [id number] [facility] 2022-10-08 00:00:00 2022-10-08 00:00:00 Orders Only Doctor Unassigned, [place] [facility] 1.2.840.114 350.1.13.10 4.2.7.2.686 [id number] [facility] 2022-08-20 08:42:00 2022-08-20 12:19:00 Emergency X Trevor TAYLOR [facility] ERT [id number] [facility] 2022-08-20 08:42:00 2022-08-20 12:19:00 Emergency Trevor Taylor [facility] 1.2.840.114 350.1.13.10 4.2.7.2.686 [id number] 084 [id number] [facility] 2022-07-11 00:00:00 2022-07-11 00:00:00 OFFICE VISIT NEW PT LEVEL 3 STLMLC STLMLC [id number] [facility] 2022-07-09 10:07:22 2022-07-09 10:07:22 Outpatient SFA SFA [id number] 1026 Dewey Ponce 2022-07-09 00:00:00 2022-07-09 00:00:00 Outpatient Visit [id number] 2022-06-09 06:57:00 2022-06-09 10:27:00 Emergency X SOHAM CLARKE [facility] ERT [id number] [facility] 2022-06-09 06:57:00 2022-06-09 10:27:00 Emergency Soham Clarke [facility] 1.840.114 350.1.13.10 4.2.7.2.686 [id number] [id number] [facility] 2022-06-09 00:00:00 2022-06-09 00:00:00 Orders Only Doctor Unassigned, [place] [facility] 1.2840.114 350.1.13.10 4.2.7.2.686 [id number] [facility] 2021-11-04 00:00:00 2021-11-04 00:00:00 Transition of Care Ellen Carroll [facility] 1.2840.114 350.1.13.10 4.2.7.2.686 [id number] [facility] 2021-10-30 13:39:00 2021-11-01 13:45:00 Inpatient X EMELIA GALLEGO [facility] [id number] [facility] 2021-10-30 13:39:00 2021-11-01 13:45:00 Hospital Encounter Madison Sepulveda David [facility] 1.840.114 350.1.13.10 4.2.7.2.686 [id number] [facility] 2021-10-30 00:00:00 2021-10-30 00:00:00 Orders Only Doctor Unassigned, [place] [facility] 1..114 350.1.13.10 4.2.7.2.686 [id number] [facility] 2021-05-23 20:42:00 2021-05-24 01:42:00 Emergency Felipe Ortega [facility] 1.2.114 350.1.13.10 4.2.7.2.686 [id number] 084 [id number] [facility] 2021-05-23 20:42:00 2021-05-23 20:42:00 Emergency X FELIPE ORTEGA [facility] ERT [id number] [facility] 2021-05-22 18:37:00 2021-05-22 21:40:00 Emergency Gabriella Zarate [facility] 1..114 350.1.13.10 4.2.7.2.686 [id number] [id number] [facility] 2021-05-22 18:31:00 2021-05-22 18:31:00 Emergency X [facility] ERT [id number] [facility] 2021-05-07 11:11:35 2021-05-07 11:11:42 Imm/Inj Visit Nurse, Malika Mallory ImmunizatiDavid Handy [facility] 1..114 350.1.13.10 4.2.7.2.686 [id number] [facility] 2021-05-01 19:09:00 2021-05-01 20:46:00 Emergency Nikhil Blanton [facility] 1..114 350.1.13.10 4.2.7.2.686 [id number] 084 [id number] [facility] 2021-05-01 18:53:00 2021-05-01 18:53:00 Emergency X [facility] ERT [id number] [facility] 2021-04-01 20:06:00 2021-04-01 21:56:00 Emergency Blanton, [facility] 1.2.840.114 350.1.13.10 4.2.7.2.686 [id number] [id number] 2021-04-01 20:06:00 2021-04-01 21:56:00 Emergency Blanton, [facility] 1.2.840.114 350.1.13.10 4.2.7.2.686 [id number] 084 [id number] [facility] 2021-04-01 20:06:00 2021-04-01 20:06:00 Emergency X NIKHIL BLANTON [facility] ERT [id number] [facility] 2021-03-17 20:09:00 2021-03-17 22:19:00 Emergency Blanton, Nikhil [facility] 1.2.840.114 350.1.13.10 4.2.7.2.686 [id number] [id number] 2021-03-17 20:09:00 2021-03-17 22:19:00 Emergency Blanton, [facility] 1.2.840.114 350.1.13.10 4.2.7.2.686 [id number] [id number] [facility] 2021-03-17 19:56:00 2021-03-17 19:56:00 Emergency X [facility] ERT [id number] [facility] 2020-11-15 00:00:00 2020-11-15 00:00:00 Telephone Pcp, Patient Does Not Have A [facility] 1.2.840.114 350.1.13.10 4.2.7.2.686 [id number] 2020-11-15 00:00:00 2020-11-15 00:00:00 Letter (Out) [facility] 1.2.840.114 350.1.13.10 4.2.7.2.686 [id number] 2020-11-15 00:00:00 2020-11-15 00:00:00 Letter (Out) [facility] 1.2.840.114 350.1.13.10 4.2.7.2.686 [id number] [facility] 2020-11-15 00:00:00 2020-11-15 00:00:00 Telephone Pcp, Patient Does Not Have A [facility] 1.2.840.114 350.1.13.10 4.2.7.2.686 [id number] [facility] 2020-11-14 21:29:00 2020-11-14 22:55:00 Emergency Tez Hsumyra Sharma [facility] 1.2.840.114 350.1.13.10 4.2.7.2.686 [id number] 084 [id number] 2020-11-14 21:29:00 2020-11-14 22:55:00 Emergency Tez Hsumyra Sharma [facility] 1.2.840.114 350.1.13.10 4.2.7.2.686 [id number] [facility] 2020-11-14 21:29:00 2020-11-14 22:55:00 Emergency X DARNELL HSU [facility] ERT [id number] [facility] 2020-09-30 08:03:00 2020-09-30 10:45:00 Emergency Jessy Siddiqui [facility] 1.2.840.114 350.1.13.10 4.2.7.2.686 [id number] 084 [id number] 2020-09-30 08:03:00 2020-09-30 10:45:00 Emergency Jessy Siddiqui [facility] 1.2.840.114 350.1.13.10 4.2.7.2.686 [id number] [facility] 2020-09-30 07:58:00 2020-09-30 07:58:00 Emergency X [facility] ERT [id number] [facility] 2020-09-30 00:00:00 2020-09-30 00:00:00 Orders Only Doctor Unassigned, [place] [facility] 1.2.840.114 350.1.13.10 4.2.7.2.686 [id number] 2020-09-30 00:00:00 2020-09-30 00:00:00 Orders Only Doctor Unassigned, [place] [facility] 1.2.840.114 350.1.13.10 4.2.7.2.686 [id number] [facility] 2020-07-01 21:58:00 2020-07-01 23:54:00 Emergency ShannonFelipe [facility] 1.2.840.114 350.1.13.10 4.2.7.2.686 [id number] 084 [id number] 2020-07-01 21:58:00 2020-07-01 23:54:00 Emergency ShannonFelipe [facility] 1.2.840.114 350.1.13.10 4.2.7.2.686 [id number] [facility] 2020-07-01 21:58:00 2020-07-01 21:58:00 Emergency X SHANNONFELIPE [facility] ERT [id number] [facility] Results Test Description Test Time Test Comments Results Result Co mments Source [facility] (15733)2023-12-10 03:13:49* Test Item Value Reference Range Interpretation Comme nts NA (test code = 5044948880) 141 mmol/L 135-145 K (test code = 5508384584) 4.3 mmol/L 3.5-5.0 CL (test code = 7368219722) 107 mmol/L 98-108 CO2 TOTAL (test code = 9086221264) 26 mmol/L 23-31 AGAP (test code = 8005415544) 8 2-16 BUN (test code = 5350718865) 20 mg/dL 7-23 GLUCOSE (test code = 4734666257) 123 mg/dL 70-110 H CREATININE (test code = 2160-0) 0.95 mg/dL 0.60-1.25 TOTAL BILI (test code = 1021839421) 0.8 mg/dL 0.1-1.1 CALCIUM (test code = 1143411344) 9.0 mg/dL 8.6-10.6 T PROTEIN (test code = 4335123629) 8.4 g/dL 6.3-8.2 H ALBUMIN (test code = 7769349906) 4.3 g/dL 3.5-5.0 ALK PHOS (test code = 7570671432) 58 U/L 34-122 ALTv (test code = 1742-6) 33 U/L 5-50 AST(SGOT) (test code = 1432874228) 52 U/L 13-40 H eGFR (test code = 43129-5) 96.9 mL/min/1.73m2 CKD-EPI eGFR (2020). Assuming creatinine has been stable day-to-day for at least three months, the eGFR indicates Category G1 (>= 90 mL/min/1.73 m2) Lab Interpretation (test code = 95661-8) Abnormal [facility] W [id number] 03:12:08CT ABDOMEN PELVIS W CONTRAST HISTORY: 53 years-old; Male; Hematuria, unknown cause COMPARISON: CT abdomen pelvis without contrast dated 08/03/2023. TECHNIQUE AND FINDINGS: Contiguous axial imaging from the level of the lungbases through the pubic symphysis was performed after the uncomplicatedadministration of intravenous Omnipaque contrast. Coronal and sagittalreconstructions were obtained. ?Auto mA and/or iterative reconstructionwere used to reduce radiation dose. FINDINGS: LOWER THORAX: The lung bases are clear. No cardiomegaly. LIVER: 6 mm segment V cyst is noted. Normal contour. GALLBLADDER AND BILIARY TREE: No intra or extrahepatic biliary ductaldilation. SPLEEN: Unremarkable. PANCREAS: No ductal dilatation or masses ADRENAL GLANDS: No adrenal lesions. KIDNEYS: No hydronephrosis, stones, or masses. Homogeneous and symmetricalenhancement. GI TRACT: No dilation or bowel wall thickening.The appendix is normal.. PERITONEUM AND RETROPERITONEUM: No free air or fluid collection. LYMPH NODES: No intra- abdominal or pelvic lymph node enlargement. PELVIS/BLADDER: Bladder is partially distended with no wall thickening. VESSELS: Patent. BONES AND SOFT TISSUES: No suspicious lytic or sclerotic bony lesions.[facility] BASIC METABOLIC PANEL (NA, K, CL, CO2, GLUCOSE, BUN, CREATININE, CA)2023-08-04 03:27:21* Test Item Value Reference Range Interpretation Comme nts NA (test code = 5657581577) 140 mmol/L 135-145 K (test code = 0804301278) 3.9 mmol/L 3.5-5.0 CL (test code = 0776658582) 104 mmol/L 98-108 CO2 TOTAL (test code = 5423335230) 28 mmol/L 23-31 AGAP (test code = 7016592003) 8 2-16 BUN (test code = 8877681277) 15 mg/dL 7-23 GLUCOSE (test code = 3201397224) 155 mg/dL 70-110 H CREATININE (test code = 4784594586) 1.37 mg/dL 0.60-1.25 H CALCIUM (test code = 3673115524) 9.5 mg/dL 8.6-10.6 eGFR (test code = 10515-7) 62.8 mL/min/1.73m2 CKD-EPI eGFR (2020). Assuming creatinine has been stable day-to-day for at least three months, the eGFR indicates Category G2 (60 - 89 mL/min/1.73 m2) Lab Interpretation (test code = 10946-3) Abnormal [facility] WITH [id number] 03:12:39* Test Item Value Reference Range Interpretation Comme nts WBC (test code = 6690-2) 6.98 See_Comment [Automated [employer]] The system which generated this result transmitted reference range: 4.20 - 10.70 10*3/?L. The reference range was not used to interpret this result as normal/abnormal. RBC (test code = 789-8) 5.27 See_Comment [Automated [employer]] The system which generated this result [...] g/dL 31.2-35.0 H RDW-SD (test code = 22456-5) 38.1 fL 38.5-51.6 L RDW-CV (test code = 788-0) 12.3 % 12.1-15.4 PLT (test code = 777-3) 238 See_Comment [Automated [employer]] The system which generated this result transmitted reference range: 150 - 328 10*3/?L. The reference range was not used to interpret this result as normal/abnormal. MPV (test code = 56636-6) 9.8 fL 9.8-13.0 NRBC/100 WBC (test code = 9792783311) 0.0 See_Comment [Automated [email or web address] ssage] The system which generated this result transmitted reference range: 0.0 - 10.0 /100 WBCs. The reference range was not used to interpret this result as normal/abnormal. NRBC x10^3 (test code = 7560299343) See_Comment [Automated [employer]] The system which generated this result transmitted reference range: 10*3/?L. The reference range was not used to interpret this result as normal/abnormal. GRAN MAT (NEUT) % (test code = 770-8) 37.8 % IMM GRAN % (test code = 1401381099) 0.30 % LYMPH % (test code = 736-9) 52.7 % MONO % (test code = 5905-5) 7.7 % EOS % (test code = 713-8) 1.1 % BASO % (test code = 706-2) 0.4 % GRAN MAT x10^3(ANC) (test code = 1721218296) 2.63 10*3/uL 1.99-6.95 IMM GRAN x10^3 (test code = 1271680663) 0.00-0.06 LYMPH x10^3 (test code = 731-0) 3.68 10*3/uL 1.09-3.23 H MONO x10^3 (test code = 742-7) 0.54 10*3/uL 0.36-1.02 EOS x10^3 (test code = 711-2) 0.08 10*3/uL 0.06-0.53 BASO x10^3 (test code = 704-7) 0.03 10*3/uL 0.01-0.09 Lab Interpretation (test code = 74899-2) Abnormal [facility] [id number] 17:24:34* Test Item Value Reference Range Interpretation Comme nts TROPONIN I (test code = 4076308313) 0.018 ng/mL <=0.034 KRYSTLE (test code = [...] of biotin. Lab Interpretation (test code = 75295-4) Normal [facility]2023-11-11 17:13:15* Test Item Value Reference Range Interpretation Comme nts MAGNESIUM (test code = 7595627074) 1.9 mg/dL 1.7-2.4 Lab Interpretation (test cod e = 02730-6) Normal [facility] METABOLIC PANEL (43626)2023-07-25 17:12:55* Test Item Value Reference Range Interpretation Comme nts NA (test code = 8172847038) 141 mmol/L 135-145 K (test code = 5664523917) 3.8 mmol/L 3.5-5.0 CL (test code = 0764563979) 106 mmol/L 98-108 CO2 TOTAL (test code = 6266758817) 27 mmol/L 23-31 AGAP (test code = 0190714205) 8 2-16 BUN (test code = 8467502889) 14 mg/dL 7-23 GLUCOSE (test code = 0028953260) 124 mg/dL 70-110 H CREATININE (test code = 7323394335) 0.93 mg/dL 0.60-1.25 TOTAL BILI (test code = 4249968068) 0.8 mg/dL 0.1-1.1 CALCIUM (test code = 6424430327) 9.3 mg/dL 8.6-10.6 T PROTEIN (test code = 7833462175) 8.2 g/dL 6.3-8.2 ALBUMIN (test code = 4430085869) 4.4 g/dL 3.5-5.0 ALK PHOS (test code = 1882105083) 49 U/L 34-122 ALTv (test code = 1742-6) 20 U/L 5-50 AST(SGOT) (test code = 5132996875) 28 U/L 13-40 eGFR (test code = 12077-2) 100.0 mL/min/1.73m2 CKD-EPI eGFR (2020). Assuming creatinine has been stable day-to-day for at least three months, the eGFR indicates Category G1 (>= 90 mL/min/1.73 m2) Lab Interpretation (test code = 58596-1) Abnormal [facility]2023-11-11 17:12:35* Test Item Value Reference Range Interpretation Comme nts LIPASE (test code = 0686705203) 109 U/L 0-220 Lab Interpretation (test cod e = 72530-6) Normal [facility] WITH [id number] 16:59:59* Test Item Value Reference Range Interpretation Comme nts WBC (test code = 6690-2) 5.17 See_Comment [Automated [employer]] The system which generated this result transmitted reference range: 4.20 - 10.70 10*3/?L. The reference range was not used to interpret this result as normal/abnormal. RBC (test code = 789-8) 5.04 See_Comment [Automated [employer] ge] The system which [...] g/dL 31.2-35.0 H RDW-SD (test code = 21872-6) 39.2 fL 38.5-51.6 RDW-CV (test code = 788-0) 12.5 % 12.1-15.4 PLT (test code = 777-3) 207 See_Comment [[employer]ated [employer]] The system which generated this result transmitted reference range: 150 - 328 10*3/?L. The reference range was not used to interpret this result as normal/abnormal. MPV (test code = 41986-3) 10.0 fL 9.8-13.0 NRBC/100 WBC (test code = 4516648095) 0.0 See_Comment [Automated [employer] ssage] The system which generated this result transmitted reference range: 0.0 - 10.0 /100 WBCs. The reference range was not used to interpret this result as normal/abnormal. NRBC x10^3 (test code = 1393809844) See_Comment [Automated [employer]] The system which generated this result transmitted reference range: 10*3/?L. The reference range was not used to interpret this result as normal/abnormal. GRAN MAT (NEUT) % (test code = 770-8) 45.8 % IMM GRAN % (test code = 8976760530) 0.20 % LYMPH % (test code = 736-9) 42.9 % MONO % (test code = 5905-5) 9.9 % EOS % (test code = 713-8) 0.8 % BASO % (test code = 706-2) 0.4 % GRAN MAT x10^3(ANC) (test code = 2736936978) 2.37 10*3/uL 1.99-6.95 IMM GRAN x10^3 (test code = 0880618972) 0.00-0.06 LYMPH x10^3 (test code = 731-0) 2.22 10*3/uL 1.09-3.23 MONO x10^3 (test code = 742-7) 0.51 10*3/uL 0.36-1.02 EOS x10^3 (test code = 711-2) 0.04 10*3/uL 0.06-0.53 L BASO x10^3 (test code = 704-7) 0.01-0.09 Lab Interpretation (test code = 37239-4) [id number]TOTAL CHOLESTEROL, TRIGLYCERIDES, HDL)2023-07-24 21:48:18* Test Item Value Reference Range Interpretation Comme nts CHOL (test code = 3724555777) 220 mg/dL 120-200 H HDL (test code = 2645845058) 31 mg/dL >=40 L HDLC RATIO (test code = 7184696701) 7.1 <=5.0 H TRIG (test code = 6221837320) 134 mg/dL 30-170 LDL CHOL (test code = 83203-7) 162 mg/dL <=160 H VLDL (test code = 5293669167) 27 mg/dL 5-60 Lab Interpretation (test cod e = 16483-8) [facility]normal [facility] [id number] 20:48:07* Test Item Value Reference Range Interpretation Comme nts NA (test code = 4689133043) 141 mmol/L 135-145 K (test code = 9320288120) 3.8 mmol/L 3.5-5.0 CL (test code = 7048255195) 103 mmol/L 98-108 CO2 TOTAL (test code = 1443495438) 29 mmol/L 23-31 AGAP (test code = 9907813517) 9 2-16 BUN (test code = 8150818952) 14 mg/dL 7-23 GLUCOSE (test code = 9616684500) 102 mg/dL 70-110 CREATININE (test code = 4969757349) 0.85 mg/dL 0.60-1.25 TOTAL BILI (test code = 9639911260) 1.2 mg/dL 0.1-1.1 H CALCIUM (test code = 9074473312) 10.0 mg/dL 8.6-10.6 T PROTEIN (test code = 4287153803) 8.9 g/dL 6.3-8.2 H ALBUMIN (test code = 2510627146) 5.0 g/dL 3.5-5.0 ALK PHOS (test code = 7695893842) 52 U/L 34-122 ALTv (test code = 1742-6) 22 U/L 5-50 AST(SGOT) (test code = 0346738601) 45 U/L 13-40 H eGFR (test code = 35811-4) 105.9 mL/min/1.73m2 CKD-EPI eGFR (2020). Assuming creatinine has been stable day-to-day for at least three months, the eGFR indicates Category G1 (>= 90 mL/min/1.73 m2) Lab Interpretation (test code = 57441-9) [facility]normal [facility], [id number] 20:48:07* Test Item Value Reference Range Interpretation Comme nts LIPASE (test code = 4579207510) 134 U/L 0-220 Lab Interpretation (test cod e = 16972-9) Normal [facility] with Znggryeoaotv1105-75-18 20:20:02* Test Item Value Reference Range Interpretation Comme nts WBC (test code = 6690-2) 6.91 See_Comment [Automated [employer]] The system which generated this result transmitted reference range: 4.20 - 10.70 10*3/?L. The reference range was not used to interpret this result as normal/abnormal. RBC (test code = 789-8) 5.49 See_Comment [Automated [employer]] The system which generated this result [...] 34.7 g/dL 31.2-35.0 RDW-SD (test code = 48744-0) 40.0 fL 38.5-51.6 RDW-CV (test code = 788-0) 12.7 % 12.1-15.4 PLT (test code = 777-3) 228 See_Comment [Automated messa ge] The system which generated this result transmitted reference range: 150 - 328 10*3/?L. The reference range was not used to interpret this result as normal/abnormal. MPV (test code = 86566-4) 9.5 fL 9.8-13.0 L NRBC/100 WBC (test code = 1889588662) 0.0 See_Comment [Automated [employer]age] The system which generated this result transmitted reference range: 0.0 - 10.0 /100 WBCs. The reference range was not used to interpret this result as normal/abnormal. NRBC x10^3 (test code = 5526703348) See_Comment [Automated messa ge] The system which generated this result transmitted reference range: 10*3/?L. The reference range was not used to interpret this result as normal/abnormal. GRAN MAT (NEUT) % (test code = 770-8) 46.9 % IMM GRAN % (test code = 5974699166) 0.30 % LYMPH % (test code = 736-9) 42.3 % MONO % (test code = 5905-5) 9.8 % EOS % (test code = 713-8) 0.4 % BASO % (test code = 706-2) 0.3 % GRAN MAT x10^3(ANC) (test code = 2766252843) 3.24 10*3/uL 1.99-6.95 IMM GRAN x10^3 (test code = 9497582232) 0.00-0.06 LYMPH x10^3 (test code = 731-0) 2.92 10*3/uL 1.09-3.23 MONO x10^3 (test code = 742-7) 0.68 10*3/uL 0.36-1.02 EOS x10^3 (test code = 711-2) 0.03 10*3/uL 0.06-0.53 L BASO x10^3 (test code = 704-7) 0.01-0.09 Lab Interpretation (test code = 58642-3) Abnormal [facility]ELVIS W/[id number] 08:28:00 [facility] 1970 Sex: M PatientName: NOAH PUTNAM Unit No: [id number] EXAMS: CPT CODE: [id number] CT ABD PELVIS W/CONT 34413 EXAM: - CT ABD PELVIS W/CONT INDICATION: pancreatitis Location code:C3 TECHNIQUE: No oral contrast was given Axial CT images of the abdomen and pelvis were obtained after the use of intravenous contrast.No delayed phase images were obtained. Reconstructions - coronal and sagittal planes Automated exposure reduction (Auto mA/Smart mA) was utilized in compliance with ACR Image Wisely. Unless otherwisespecified, incidental findings do not require dedicated imaging [...] No evidence of aneurysm or dissection. Lymphatics: Noenlarged lymph nodes by CT size criteria. Bones/Soft Tissues: No acute osseous findings. No ventralhernias. Peritoneum/Other: No extraluminal fluid. IMPRESSION: 1. No acute abnormality. [facility] Ji NAME: NOAH PUTNAM PHYS: [place] [address] : 1970 AGE: 52 SEX: M LOC: Z.ERS PHONE #: [phone] EXAM DATE: 07/23/2023 STATUS: REG ER FAX #: [phone] RAD #: D/C DT PAGE 1 Signed Report (CONTINUED) Patient Name: NOAH PUTNAM Unit No: [id number] EXAMS: CPT CODE: [id number] CT ABD PELVIS W/CONT 47196 (Continued) at 0828 Reported and signed by: Kiara Meza MD CC: Jessie Paul MD Technologist: Jovanni GREEN CTDI: DLP: Trnscrpt: 07/23/2023 (0828) t.SDR.CB5 [facility] Ji NAME: NOAH PUTNAM PHYS: [place] [address] : 1970 AGE: 52 SEX: M LOC: MyWaveERS PHONE #: [phone] EXAM DATE: 07/23/2023 STATUS: REG ER FAX #: [phone] RAD #: D/C DT PAGE 2 Signed Report Patient Name: NOAH PUTNAM Unit No: [id number] EXAMS: CPT CODE: [id number] CT ABD PELVISW/CONT 21401 (Continued) Orig Print D/T: S: 07/23/2023 (0831) [facility] Ji NAME: NOAH PUTNAM PHYS: SAN[place] [address] : 1970 AGE: 52 SEX: M LOC: ABDELRAHMAN PHONE #: [phone] EXAM DATE: 07/23/2023 STATUS: REG ER FAX #: [phone] RAD #: D/C DT PAGE 3 Signed ReportURINALYSIS [id number] 06:32:00* Test Item Value Reference Range Interpretation [...] /mm3 NEGATIVE SOURCE OF URINE: CLEAN CATCHUA [id number] 06:32:00* Test Item Value Reference Range Interpretation Comme nts UA RBC (test code = RBCU) 3-5 RBC/HPF 0-3 A UA WBC (test code = XWBCU) 0-3 WBC/HPF 0-5 UA EPITHELIAL CELLS (test co de = EPIU) RARE EPI/HPF FEW UA BACTERIA (test code = XBACU) FEW NONE UA MUCUS (test code = MUCU) MODERATE #/LPF NONE A SOURCE OF URINE: CLEAN CATCHBASIC METABOLIC [id number] 06:31:00* Test Item Value Reference Range Interpretation [...] CA) 9.5 MG/DL 8.4-10.2 N HEPATIC FUNCTION [id number] 06:31:00* Test Item Value Reference Range Interpretation Comme nts TOTAL PROTEIN (test code = PROT) 9.0 G/DL 6.2-7.6 H [facility]o Clinical D iagnostic has made us aware of newinformation regarding the potential interference ofEltrombopag (a bone marrow stimulant used to treatthrombocytonmenia and aplastic anemia) with specific assayson the [place] 5600 of which Total Protein is one of thoseassays performed in our lab.Interference testing performed at Ortho determined thatEltrombopag does interfere with Vitros Total [...] code = ALKP) 57 UNITS/L 38-126 N [id number] 06:31:00* Test Item Value Reference Range Interpretation Comme nts LIPASE (test code = LIP) 94 UNITS/L 23-300 N [id number] 06:31:00* Test Item Value Reference Range Interpretation Comme nts TROPONIN-I (test code = TROPI) 0.019 NG/ML 0.012-0.033 N PROTHROMBIN [id number] 06:07:00* Test Item Value Reference Range Interpretation [...] systemic embolism. 3.0 - 4.5 CBC W/O [id number] 06:00:00* Test Item Value Reference Range Interpretation [...] = NRBC#) 0.00 K/mm3 0.0-0.1 N Troponin [id number] 02:46:51* Test Item Value Reference Range Interpretation Comme nts TROPONIN I (test code = 4637048504) 0.017 ng/mL <=0.034 KRYSTLE (test code = [...] of biotin. Lab Interpretation (test code = 91909-0) [facility] 02:35:28* Test Item Value Reference Range Interpretation Comme nts NA (test code = 9436027065) 138 mmol/L 135-145 K (test code = 7202238339) 3.7 mmol/L 3.5-5.0 CL (test code = 3565488446) 106 mmol/L 98-108 CO2 TOTAL (test code = 2105337134) 24 mmol/L 23-31 AGAP (test code = 9432834726) 8 2-16 BUN (test code = 8682303757) 11 mg/dL 7-23 GLUCOSE (test code = 9779436130) 165 mg/dL 70-110 H CREATININE (test code = 7176720579) 0.89 mg/dL 0.60-1.25 TOTAL BILI (test code = 0461638686) 0.2 mg/dL 0.1-1.1 CALCIUM (test code = 2894075142) 9.3 mg/dL 8.6-10.6 T PROTEIN (test code = 6202572426) 7.0 g/dL 6.3-8.2 ALBUMIN (test code = 1691082781) 4.0 g/dL 3.5-5.0 ALK PHOS (test code = 5528387184) 59 U/L 34-122 ALTv (test code = 1742-6) 23 U/L 5-50 AST(SGOT) (test code = 5193231491) 27 U/L 13-40 eGFR (test code = 7290150846) 90.5 mL/min/1.73m2 KRYSTLE (test code = KRYSTLE) [...] imaging tests). Lab Interpretation (test code = 96888-9) Abnormal [facility] with [id number] 02:26:10* Test Item Value Reference Range Interpretation Comme nts WBC (test code = 6690-2) 5.78 See_Comment [Automated [employer]] The system which generated this result transmitted reference range: 4.20 - 10.70 10*3/?L. The reference range was not used to interpret this result as normal/abnormal. RBC (test code = 789-8) 4.59 See_Comment [Automated [employer]] The system which generated this result [...] g/dL 31.2-35.0 H RDW-SD (test code = 63867-4) 38.6 fL 38.5-51.6 RDW-CV (test code = 788-0) 12.6 % 12.1-15.4 PLT (test code = 777-3) 200 See_Comment [Automated [employer]] The system which generated this result transmitted reference range: 150 - 328 10*3/?L. The reference range was not used to interpret this result as normal/abnormal. MPV (test code = 78207-7) 9.6 fL 9.8-13.0 L NRBC/100 WBC (test code = 7559780377) 0.0 See_Comment [Automated [employer]] The system which generated this result transmitted reference range: 0.0 - 10.0 /100 WBCs. The reference range was not used to interpret this result as normal/abnormal. NRBC x10^3 (test code = 2845108636) See_Comment [Automated [employer]] The system which generated this result transmitted reference range: 10*3/?L. The reference range was not used to interpret this result as normal/abnormal. GRAN MAT (NEUT) % (test code = 770-8) 36.8 % IMM GRAN % (test code = 2467484676) 0.20 % LYMPH % (test code = 736-9) 54.7 % MONO % (test code = 5905-5) 7.1 % EOS % (test code = 713-8) 0.9 % BASO % (test code = 706-2) 0.3 % GRAN MAT x10^3(ANC) (test code = 1172922485) 2.13 10*3/uL 1.99-6.95 IMM GRAN x10^3 (test code = 2020020473) 0.00-0.06 LYMPH x10^3 (test code = 731-0) 3.16 10*3/uL 1.09-3.23 MONO x10^3 (test code = 742-7) 0.41 10*3/uL 0.36-1.02 EOS x10^3 (test code = 711-2) 0.05 10*3/uL 0.06-0.53 L BASO x10^3 (test code = 704-7) 0.01-0.09 Lab Interpretation (test code = 93493-9) [facility] (90204)2023-07-03 10:47:01* Test Item Value Reference Range Interpretation Comme nts NA (test code = 9118258716) 138 mmol/L 135-145 K (test code = 5914410197) 4.5 mmol/L 3.5-5.0 Slight hemolysis CL (test code = 9604406879) 103 mmol/L 98-108 CO2 TOTAL (test code = 5096869507) 23 mmol/L 23-31 AGAP (test code = 1825724752) 12 2-16 BUN (test code = 3086076869) 16 mg/dL 7-23 Slight hemolysis GLUCOSE (test code = 6934247489) 142 mg/dL 70-110 H CREATININE (test code = 9025182714) 0.99 mg/dL 0.60-1.25 TOTAL BILI (test code = 9110791552) 1.2 mg/dL 0.1-1.1 H CALCIUM (test code = 9082449082) 9.6 mg/dL 8.6-10.6 T PROTEIN (test code = 2595400933) 8.1 g/dL 6.3-8.2 ALBUMIN (test code = 0992555971) 4.6 g/dL 3.5-5.0 ALK PHOS (test code = 1291967098) 51 U/L 34-122 Slight hemolysis ALTv (test code = 1742-6) 26 U/L 5-50 AST(SGOT) (test code = 8079584799) 32 U/L 13-40 Slight hemolysis eGFR (test code = 0626735523) 80.0 mL/min/1.73m2 KRYSTLE (test code = KRYSTLE) [...] imaging tests). Lab Interpretation (test code = 23757-6) [facility] 10:47:01* Test Item Value Reference Range Interpretation Comme nts LIPASE (test code = 8425083909) 955 U/L 0-220 H Lab Interpretation (test cod e = 79260-4) Abnormal [facility] WITH [id number] 10:27:34* Test Item Value Reference Range Interpretation Comme nts WBC (test code = 6690-2) 6.60 See_Comment [Automated messa ge] The system which generated this result transmitted reference range: 4.20 - 10.70 10*3/?L. The reference range was not used to interpret this result as normal/abnormal. RBC (test code = 789-8) 5.32 See_Comment [Automated [employer]] The system which generated this result [...] 34.5 g/dL 31.2-35.0 RDW-SD (test code = 71843-0) 39.4 fL 38.5-51.6 RDW-CV (test code = 788-0) 12.3 % 12.1-15.4 PLT (test code = 777-3) 226 See_Comment [Automated [employer]] The system which generated this result transmitted reference range: 150 - 328 10*3/?L. The reference range was not used to interpret this result as normal/abnormal. MPV (test code = 53811-1) 9.6 fL 9.8-13.0 L NRBC/100 WBC (test code = 4993789592) 0.0 See_Comment [Automated [employer]] The system which generated this result transmitted reference range: 0.0 - 10.0 /100 WBCs. The reference range was not used to interpret this result as normal/abnormal. NRBC x10^3 (test code = 1108129408) See_Comment [Automated [employer]] The system which generated this result transmitted reference range: 10*3/?L. The reference range was not used to interpret this result as normal/abnormal. GRAN MAT (NEUT) % (test code = 770-8) 54.9 % IMM GRAN % (test code = 4579273426) 0.20 % LYMPH % (test code = 736-9) 36.2 % MONO % (test code = 5905-5) 7.9 % EOS % (test code = 713-8) 0.5 % BASO % (test code = 706-2) 0.3 % GRAN MAT x10^3(ANC) (test code = 2743510225) 3.63 10*3/uL 1.99-6.95 IMM GRAN x10^3 (test code = 9974116880) 0.00-0.06 LYMPH x10^3 (test code = 731-0) 2.39 10*3/uL 1.09-3.23 MONO x10^3 (test code = 742-7) 0.52 10*3/uL 0.36-1.02 EOS x10^3 (test code = 711-2) 0.03 10*3/uL 0.06-0.53 L BASO x10^3 (test code = 704-7) 0.01-0.09 Lab Interpretation (test code = 79007-1) Abnormal [facility] ABD PELVIS W/[id number] 00:06:00 [facility] 1970 Sex: M Patient Name: NOAH PUTNAM Unit No: [id number] EXAMS: CPT CODE: [id number] CT ABD PELVIS W/CONT 18784 Reason: diffuse abd pain CT Scan of [...] Jennifer Bass MD CC: Jessie Gleason DO; [facility] Technologist: Cory Romero CT Trscrpt Dt/ (000)t.SDR.MA50 Orig Print D/T: S: 07/02/2023 (0009) CTDI: DLP: [facility] NAME: NOAH PUTNAM [address] [place] [address] PHYS: MANOLO. Jessie Glesaon [address] : 1970 AGE: 52 SEX: M [place], [place] [address] LOC: D.PER PHONE #: [phone] EXAM DATE: 07/01/2023 STATUS: REG ER FAX #: RAD NO: DC Dt: PAGE 1 Signed ReportTROP-I HIGH [id number] 23:55:00* Test Item Value Reference Range Interpretation [...] troponin from other clinical conditions, the Fourth [employer] Definition of Myocardial Infarction stresses clinical assessment and demonstration of a rise and/or fall in serial troponin results above the upper reference limit.Results of this assay method may be falsely depressed orelevated if patient is taking high doses of Biotin. BASIC METABOLIC [id number] 23:55:00* Test Item Value Reference Range Interpretation [...] CA) 9.3 MG/DL 8.7-10.5 N HEPATIC FUNCTION [id number] 23:55:00* Test Item Value Reference Range Interpretation [...] code = ALKP) 60 Units/L 50-136 N [id number] 23:55:00* Test Item Value Reference Range Interpretation Comme nts LIPASE (test code = LIP) 259 U/L 16-77 H New Reference Ranges of 16-77 U/L please reviewrevised from 73-393 U/L on 06/30/2023 CBC W/AUTO [id number] 23:24:00* Test Item Value Reference Range Interpretation [...] = BA#) 0.02 x10 3/uL 0.0-0.2 N [id number] 12:29:00* Test Item Value Reference Range Interpretation Comme [facility] LIPASE (test code = LIP) 73 Units/L 73-393 N [id number] 17:24:56* Test Item Value Reference Range Interpretation Comme [facility] LIPASE (test code = 5032939258) 283 U/L 0-220 H Lab Interpretation (test cod e = 24633-8) Abnormal [facility] METABOLIC PANEL (NA, K, CL, CO2, GLUCOSE, BUN, CREATININE, CA)2023-04-22 17:24:35* Test Item Value Reference Range Interpretation Comme [facility] NA (test code = 0914640767) 139 mmol/L 135-145 K (test code = 4229361065) 4.0 mmol/L 3.5-5.0 CL (test code = 3547769401) 106 mmol/L 98-108 CO2 TOTAL (test code = 8321504785) 25 mmol/L 23-31 AGAP (test code = 9967288337) 8 2-16 BUN (test code = 6181555534) 21 mg/dL 7-23 GLUCOSE (test code = 8684643097) 110 mg/dL 70-110 CREATININE (test code = 1699181534) 1.06 mg/dL 0.60-1.25 CALCIUM (test code = 6503443817) 8.1 mg/dL 8.6-10.6 L eGFR (test code = 3285728722) 74.0 mL/min/1.73m2 KRYSTLE (test code = KRYSTLE) [...] imaging tests). Lab Interpretation (test code = 19976-1) [facility]normal [facility] [id number] 13:57:28* Test Item Value Reference Range Interpretation Comme nts CK (test code = 0322162494) 635 U/L 33-194 H Lab Interpretation (test cod e = 76276-4) [facility]OL[facility] (NA, K, CL, CO2, GLUCOSE, BUN, CREATININE, CA)2023-04-22 13:23:02* Test Item Value Reference Range Interpretation Comme nts NA (test code = 7924781835) 141 mmol/L 135-145 K (test code = 3919687552) 4.0 mmol/L 3.5-5.0 CL (test code = 8572289430) 107 mmol/L 98-108 CO2 TOTAL (test code = 2248385417) 27 mmol/L 23-31 AGAP (test code = 3313915937) 7 2-16 BUN (test code = 7104738619) 22 mg/dL 7-23 GLUCOSE (test code = 0577031152) 94 mg/dL 70-110 CREATININE (test code = 9029451989) 1.26 mg/dL 0.60-1.25 H CALCIUM (test code = 4569337100) 8.3 mg/dL 8.6-10.6 L eGFR (test code = 1352370928) 60.6 mL/min/1.73m2 KRYSTLE (test code = KRYSTLE) [...] imaging tests). Lab Interpretation (test code = 98259-6) [facility]normal [facility]2023-[facility]-09 13:22:41* Test Item Value Reference Range Interpretation Comme nts LIPASE (test code = 4281693328) 897 U/L 0-220 H Lab Interpretation (test cod e = 36354-1) [facility]normal [facility] MET[facility]OLIC PANEL (42333)2023-04-22 09:43:42* Test Item Value Reference Range Interpretation Comme nts NA (test code = 3308528006) 140 mmol/L 135-145 K (test code = 1002502916) 3.7 mmol/L 3.5-5.0 CL (test code = 7948180731) 103 mmol/L 98-108 CO2 TOTAL (test code = 1039596708) 24 mmol/L 23-31 AGAP (test code = 8337471535) 13 2-16 BUN (test code = 9785152408) 24 mg/dL 7-23 H GLUCOSE (test code = 5945566442) 114 mg/dL 70-110 H CREATININE (test code = 1796896463) 1.42 mg/dL 0.60-1.25 H TOTAL BILI (test code = 8979176348) 0.9 mg/dL 0.1-1.1 CALCIUM (test code = 0667004771) 9.5 mg/dL 8.6-10.6 T PROTEIN (test code = 9737913178) 9.2 g/dL 6.3-8.2 H ALBUMIN (test code = 2336237179) 4.9 g/dL 3.5-5.0 ALK PHOS (test code = 7170676096) 66 U/L 34-122 ALTv (test code = 1742-6) 25 U/L 5-50 AST(SGOT) (test code = 5219277983) 37 U/L 13-40 eGFR (test code = 7830300989) 52.8 mL/min/1.73m2 KRYSTLE (test code = KRYSTLE) [...] imaging tests). Lab Interpretation (test code = 33196-5) Abnormal [facility] WITH [id number] 09:33:37* Test Item Value Reference Range Interpretation Comme nts WBC (test code = 6690-2) 8.53 See_Comment [Automated [employer]] The system which generated this result transmitted reference range: 4.20 - 10.70 10*3/?L. The reference range was not used to interpret this result as normal/abnormal. RBC (test code = 789-8) 5.60 See_Comment H [Automated [employer]] The system which generated this result transmitted [...] g/dL 31.2-35.0 H RDW-SD (test code = 04135-6) 40.1 fL 38.5-51.6 RDW-CV (test code = 788-0) 13.0 % 12.1-15.4 PLT (test code = 777-3) 267 See_Comment [Automated [employer]] The system which generated this result transmitted reference range: 150 - 328 10*3/?L. The reference range was not used to interpret this result as normal/abnormal. MPV (test code = 01532-9) 9.6 fL 9.8-13.0 L NRBC/100 WBC (test code = 3919610416) 0.0 See_Comment [Automated [employer]] The system which generated this result transmitted reference range: 0.0 - 10.0 /100 WBCs. The reference range was not used to interpret this result as normal/abnormal. NRBC x10^3 (test code = 6528306579) See_Comment [Automated [employer]] The system which generated this result transmitted reference range: 10*3/?L. The reference range was not used to interpret this result as normal/abnormal. GRAN MAT (NEUT) % (test code = 770-8) 44.5 % IMM GRAN % (test code = 9911517405) 0.20 % LYMPH % (test code = 736-9) 43.4 % MONO % (test code = 5905-5) 10.7 % EOS % (test code = 713-8) 0.8 % BASO % (test code = 706-2) 0.4 % GRAN MAT x10^3(ANC) (test code = 3189306998) 3.80 10*3/uL 1.99-6.95 IMM GRAN x10^3 (test code = 6258991073) 0.00-0.06 LYMPH x10^3 (test code = 731-0) 3.70 10*3/uL 1.09-3.23 H MONO x10^3 (test code = 742-7) 0.91 10*3/uL 0.36-1.02 EOS x10^3 (test code = 711-2) 0.07 10*3/uL 0.06-0.53 BASO x10^3 (test code = 704-7) 0.03 10*3/uL 0.01-0.09 Lab Interpretation (test code = 58323-5) Abnormal [facility] [place] [id number] 13:23:31* Test Item Value Reference Range Interpretation Comme nts TROPONIN I (test code = 7259514857) 0.020 ng/mL <=0.034 KRYSTLE (test code = [...] of biotin. Lab Interpretation (test code = 15831-6) Normal [facility] [place] [id number] 13:23:31* Test Item Value Reference Range Interpretation Comme nts TROPONIN I (test code = 6376265008) 0.020 ng/mL <=0.034 KRYSTLE (test code = [...] of biotin. Lab Interpretation (test code = 88008-4) Normal [facility] MET[facility]OLIC PANEL (83113)2023-04-16 12:58:04* Test Item Value Reference Range Interpretation Comme nts NA (test code = 1839798113) 142 mmol/L 135-145 K (test code = 7220995835) 4.0 mmol/L 3.5-5.0 CL (test code = 3825129021) 105 mmol/L 98-108 CO2 TOTAL (test code = 4273859638) 28 mmol/L 23-31 AGAP (test code = 4145460406) 9 2-16 BUN (test code = 5599952751) 11 mg/dL 7-23 GLUCOSE (test code = 8234839061) 115 mg/dL 70-110 H CREATININE (test code = 3599972534) 0.85 mg/dL 0.60-1.25 TOTAL BILI (test code = 7834939126) 0.4 mg/dL 0.1-1.1 CALCIUM (test code = 2636030471) 9.2 mg/dL 8.6-10.6 T PROTEIN (test code = 8979331942) 7.6 g/dL 6.3-8.2 ALBUMIN (test code = 5867237970) 4.4 g/dL 3.5-5.0 ALK PHOS (test code = 3821254377) 52 U/L 34-122 ALTv (test code = 1742-6) 23 U/L 5-50 AST(SGOT) (test code = 6346068752) 33 U/L 13-40 eGFR (test code = 5517665827) 95.4 mL/min/1.73m2 KRYSTLE (test code = KRYSTLE) [...] imaging tests). Lab Interpretation (test code = 19563-0) [facility] 12:58:04* Test Item Value Reference Range Interpretation Comme nts LIPASE (test code = 6351025458) 492 U/L 0-220 H Lab Interpretation (test cod e = 44901-8) [facility]normal [facility] MET[facility]OLIC PANEL (79572)2023-04-16 12:58:04* Test Item Value Reference Range Interpretation Comme nts NA (test code = 1658652154) 142 mmol/L 135-145 K (test code = 9830301147) 4.0 mmol/L 3.5-5.0 CL (test code = 2842867752) 105 mmol/L 98-108 CO2 TOTAL (test code = 1679289256) 28 mmol/L 23-31 AGAP (test code = 6665205975) 9 2-16 BUN (test code = 8684165605) 11 mg/dL 7-23 GLUCOSE (test code = 9330225897) 115 mg/dL 70-110 H CREATININE (test code = 2912111336) 0.85 mg/dL 0.60-1.25 TOTAL BILI (test code = 2213442878) 0.4 mg/dL 0.1-1.1 CALCIUM (test code = 6409041992) 9.2 mg/dL 8.6-10.6 T PROTEIN (test code = 4393164307) 7.6 g/dL 6.3-8.2 ALBUMIN (test code = 9948793658) 4.4 g/dL 3.5-5.0 ALK PHOS (test code = 1317132901) 52 U/L 34-122 ALTv (test code = 1742-6) 23 U/L 5-50 AST(SGOT) (test code = 3609298304) 33 U/L 13-40 eGFR (test code = 7468566269) 95.4 mL/min/1.73m2 KRYSTLE (test code = KRYSTLE) [...] imaging tests). Lab Interpretation (test code = 85646-7) [facility]normal [facility] 12:58:04* Test Item Value Reference Range Interpretation Comme nts LIPASE (test code = 2638599053) 492 U/L 0-220 H Lab Interpretation (test cod e = 47147-0) [facility] [id number] 12:50:01* Test Item Value Reference Range Interpretation Comme nts WBC (test code = 6690-2) 6.75 See_Comment [Automated [employer]] The system which generated this result transmitted [...] 34.9 g/dL 31.2-35.0 RDW-SD (test code = 42912-2) 41.4 fL 38.5-51.6 RDW-CV (test code = 788-0) 13.2 % 12.1-15.4 PLT (test code = 777-3) 219 See_Comment [Automated messa ge] The system which generated this result transmitted reference range: 150 - 328 10*3/?L. The reference range was not used to interpret this result as normal/abnormal. MPV (test code = 81938-3) 9.5 fL 9.8-13.0 L NRBC/100 WBC (test code = 3655346409) 0.0 See_Comment [Automated [email or web address] ssage] The system which generated this result transmitted reference range: 0.0 - 10.0 /100 WBCs. The reference range was not used to interpret this result as normal/abnormal. NRBC x10^3 (test code = 9220414322) See_Comment [Automated messa ge] The system which generated this result transmitted reference range: 10*3/?L. The reference range was not used to interpret this result as normal/abnormal. GRAN MAT (NEUT) % (test code = 770-8) 46.9 % IMM GRAN % (test code = 1592059868) 0.10 % LYMPH % (test code = 736-9) 43.4 % MONO % (test code = 5905-5) 8.4 % EOS % (test code = 713-8) 0.9 % BASO % (test code = 706-2) 0.3 % GRAN MAT x10^3(ANC) (test code = 6372928076) 3.16 10*3/uL 1.99-6.95 IMM GRAN x10^3 (test code = 7500570299) 0.00-0.06 LYMPH x10^3 (test code = 731-0) 2.93 10*3/uL 1.09-3.23 MONO x10^3 (test code = 742-7) 0.57 10*3/uL 0.36-1.02 EOS x10^3 (test code = 711-2) 0.06 10*3/uL 0.06-0.53 BASO x10^3 (test code = 704-7) 0.01-0.09 Lab Interpretation (test code = 64275-3) Abnormal [facility] WITH [id number] 12:50:01* Test Item Value Reference Range Interpretation Comme nts WBC (test code = 6690-2) 6.75 See_Comment [Automated [employer] ge] The system which generated this result transmitted reference range: 4.20 - 10.70 10*3/?L. The reference range was not used to interpret this result as normal/abnormal. RBC (test code = 789-8) 5.08 See_Comment [Automated [employer]] The system which generated this result [...] 34.9 g/dL 31.2-35.0 RDW-SD (test code = 69200-5) 41.4 fL 38.5-51.6 RDW-CV (test code = 788-0) 13.2 % 12.1-15.4 PLT (test code = 777-3) 219 See_Comment [Automated messa ge] The system which generated this result transmitted reference range: 150 - 328 10*3/?L. The reference range was not used to interpret this result as normal/abnormal. MPV (test code = 70062-8) 9.5 fL 9.8-13.0 L NRBC/100 WBC (test code = 2689175421) 0.0 See_Comment [Automated me ssage] The system which generated this result transmitted reference range: 0.0 - 10.0 /100 WBCs. The reference range was not used to interpret this result as normal/abnormal. NRBC x10^3 (test code = 2489442657) See_Comment [Automated messa ge] The system which generated this result transmitted reference range: 10*3/?L. The reference range was not used to interpret this result as normal/abnormal. GRAN MAT (NEUT) % (test code = 770-8) 46.9 % IMM GRAN % (test code = 9435347202) 0.10 % LYMPH % (test code = 736-9) 43.4 % MONO % (test code = 5905-5) 8.4 % EOS % (test code = 713-8) 0.9 % BASO % (test code = 706-2) 0.3 % GRAN MAT x10^3(ANC) (test code = 9927087078) 3.16 10*3/uL 1.99-6.95 IMM GRAN x10^3 (test code = 8908132642) 0.00-0.06 LYMPH x10^3 (test code = 731-0) 2.93 10*3/uL 1.09-3.23 MONO x10^3 (test code = 742-7) 0.57 10*3/uL 0.36-1.02 EOS x10^3 (test code = 711-2) 0.06 10*3/uL 0.06-0.53 BASO x10^3 (test code = 704-7) 0.01-0.09 Lab Interpretation (test code = 11341-0) Abnormal [facility] GLUCOSE (AUTOMATED)2023-02-13 21:02:35* Test Item Value Reference Range Interpretation Comme [facility] POCT GLU (test code = 3415590170) 118 mg/dL 70-110 H Lab Interpretation (test cod e = 74246-0) Abnormal [facility] WITH [id number] 05:51:48* Test Item Value Reference Range Interpretation Comme [facility] WBC (test code = 6690-2) 7.64 See_Comment [Automated [employer]] The system which generated this result transmitted reference range: 4.20 - 10.70 10*3/?L. The reference range was not used to interpret this result as normal/abnormal. RBC (test code = 789-8) 5.07 See_Comment [Automated [employer] ge] The system which generated this result [...] 34.4 g/dL 31.2-35.0 RDW-SD (test code = 29737-1) 38.5 fL 38.5-51.6 RDW-CV (test code = 788-0) 12.5 % 12.1-15.4 PLT (test code = 777-3) 216 See_Comment [Automated [employer]] The system which generated this result transmitted reference range: 150 - 328 10*3/?L. The reference range was not used to interpret this result as normal/abnormal. MPV (test code = 54680-0) 10.0 fL 9.8-13.0 NRBC/100 WBC (test code = 2895881927) 0.0 See_Comment [Automated [email or web address] ssage] The system which generated this result transmitted reference range: 0.0 - 10.0 /100 WBCs. The reference range was not used to interpret this result as normal/abnormal. NRBC x10^3 (test code = 9548994077) See_Comment [Automated [employer]] The system which generated this result transmitted reference range: 10*3/?L. The reference range was not used to interpret this result as normal/abnormal. SEG % (test code = 23022-2) 36 % 33-76 LYMPH % (test code = 32018-9) 48 % 14-54 MONO % (test code = 75474-1) 13 % 0-4 H EOS % (test code = 37651-9) 3 % 0-3 ANC (test code = 753-4) 2.75 10*3/uL 1.99-6.95 Lab Interpretation (test code = 83956-6) Abnormal [facility] METABOLIC PANEL (94867)2022-12-09 05:24:19* Test Item Value Reference Range Interpretation Comme nts NA (test code = 6434445896) 139 mmol/L 135-145 K (test code = 2549280674) 3.8 mmol/L 3.5-5.0 CL (test code = 5727510827) 105 mmol/L 98-108 CO2 TOTAL (test code = 9189457981) 24 mmol/L 23-31 AGAP (test code = 0943205931) 10 2-16 BUN (test code = 6907236126) 11 mg/dL 7-23 GLUCOSE (test code = 6192051216) 115 mg/dL 70-110 H CREATININE (test code = 3022137580) 0.93 mg/dL 0.60-1.25 TOTAL BILI (test code = 2196404374) 0.8 mg/dL 0.1-1.1 CALCIUM (test code = 3085905536) 9.3 mg/dL 8.6-10.6 T PROTEIN (test code = 9867884846) 8.0 g/dL 6.3-8.2 ALBUMIN (test code = 5898801093) 4.5 g/dL 3.5-5.0 ALK PHOS (test code = 0028119394) 50 U/L 34-122 ALTv (test code = 1742-6) 22 U/L 5-50 AST(SGOT) (test code = 0961475651) 36 U/L 13-40 eGFR (test code = 1799177035) 86.0 mL/min/1.73m2 KRYSTLE (test code = KRYSTLE) [...] imaging tests). Lab Interpretation (test code = 26335-3) [facility] 05:24:18* Test Item Value Reference Range Interpretation Comme nts LIPASE (test code = 2110076416) 271 U/L 0-220 H Lab Interpretation (test cod e = 17226-4) Abnormal [facility] with [id number] 22:09:52* Test Item Value Reference Range Interpretation Comme nts WBC (test code = 6690-2) See_Comment [Automated [employer]] The system which generated this result transmitted reference range: 4.20 - 10.70 10*3/?L. The reference range was not used to interpret this result as normal/abnormal. RBC (test code = 789-8) See_Comment [Automated [employer]] The system which generated this result [...] g/dL 31.2-35.0 H RDW-SD (test code = 79577-4) 39.2 fL 38.5-51.6 RDW-CV (test code = 788-0) 12.9 % 12.1-15.4 PLT (test code = 777-3) See_Comment [Automated [employer]] The system which generated this result transmitted reference range: 150 - 328 10*3/?L. The reference range was not used to interpret this result as normal/abnormal. MPV (test code = 67703-8) 9.0 fL 9.8-13.0 L NRBC/100 WBC (test code = 0762584017) See_Comment [Automated [email or web address] ssage] The system which generated this result transmitted reference range: 0.0 - 10.0 /100 WBCs. The reference range was not used to interpret this result as normal/abnormal. NRBC x10^3 (test code = 3122976816) See_Comment [Automated [employer]] The system which generated this result transmitted reference range: 10*3/?L. The reference range was not used to interpret this result as normal/abnormal. GRAN MAT (NEUT) % (test code = 770-8) 35.3 % IMM GRAN % (test code = 9577784305) 0.00 % LYMPH % (test code = 736-9) 56.0 % MONO % (test code = 5905-5) 7.9 % EOS % (test code = 713-8) 0.4 % BASO % (test code = 706-2) 0.4 % GRAN MAT x10^3(ANC) (test code = 3352439483) 1.87 10*3/uL 1.99-6.95 L IMM GRAN x10^3 (test code = 8648696557) 0.00-0.06 LYMPH x10^3 (test code = 731-0) 2.97 10*3/uL 1.09-3.23 MONO x10^3 (test code = 742-7) 0.42 10*3/uL 0.36-1.02 EOS x10^3 (test code = 711-2) 0.06-0.53 L BASO x10^3 (test code = 704-7) 0.01-0.09 Lab Interpretation (test code = 21021-0) Abnormal [facility] METABOLIC PANEL (NA, K, CL, CO2, GLUCOSE, BUN, CREATININE, CA)2022-10-12 00:25:13* Test Item Value Reference Range Interpretation Comme nts NA (test code = 4389098146) 136 mmol/L 135-145 K (test code = 1646726819) 3.5 mmol/L 3.5-5.0 CL (test code = 4277283136) 103 mmol/L 98-108 CO2 TOTAL (test code = 1302237392) 26 mmol/L 23-31 AGAP (test code = 5973058217) 2-16 BUN (test code = 4988999163) 14 mg/dL 7-23 GLUCOSE (test code = 5925845722) 157 mg/dL 70-110 H CREATININE (test code = 2750963563) 0.80 mg/dL 0.60-1.25 CALCIUM (test code = 8398911761) 8.4 mg/dL 8.6-10.6 L eGFR (test code = 1042910686) mL/min/1.73m2 KRYSTLE (test code = KRYSTLE) Association [...] imaging tests). Lab Interpretation (test code = 34374-5) [facility]normal [facility]20128[facility] (ALB,T.PRO,BILI T,BU/BC,ALT,AST,ALK PHOS)2022-10-12 00:25:13* Test Item Value Reference Range Interpretation Comme nts TOTAL BILI (test code = 1816829263) 1.2 mg/dL 0.1-1.1 H BILI UNCON (test code = 3500617825) 1.0 mg/dL 0.1-1.1 BILI CONJ (test code = 1120143406) 0.0 mg/dL 0.0-0.3 T PROTEIN (test code = 6026625854) 7.1 g/dL 6.3-8.2 ALBUMIN (test code = 0399268175) 4.0 g/dL 3.5-5.0 ALK PHOS (test code = 7658546980) 59 U/L 34-122 ALTv (test code = 1742-6) 38 U/L 5-50 AST(SGOT) (test code = 3149895431) 61 U/L 13-40 H Lab Interpretation (test cod e = 82766-2) Abnormal [facility] Confirmation (Lab Only)2022-10-11 21:35:47* Test Item Value Reference Range Interpretation Comme nts ABO & RH (test code = 20) O Positive Performed at [facility] Laboratory Services - [facility] Blood [address] Free: [phone] No. [id number] [facility]way[facility] and Screen - ONCE [id number] 21:25:51* Test Item Value Reference Range Interpretation Comme nts ABO & RH (test code = 20) O POSITIVE Performed at [facility] Laboratory Services - [address] Free: [phone] No. [id number] IAT (test code = 1185) Negative Performed at [facility] Laboratory Services - [address] Free: [phone] No. [id number] [facility]way[facility] WITH [id number] 20:47:43* Test Item Value Reference Range Interpretation Comme nts WBC (test code = 6690-2) See_Comment [Automated messa ge] The system which generated this result transmitted reference range: 4.20 - 10.70 10*3/?L. The reference range was not used to interpret this result as normal/abnormal. RBC (test code = 789-8) See_Comment [Automated [employer]] The system which generated this result [...] g/dL 31.2-35.0 H RDW-SD (test code = 39520-5) 41.1 fL 38.5-51.6 RDW-CV (test code = 788-0) 13.2 % 12.1-15.4 PLT (test code = 777-3) See_Comment [Automated messa ge] The system which generated this result transmitted reference range: 150 - 328 10*3/?L. The reference range was not used to interpret this result as normal/abnormal. MPV (test code = 47546-4) 9.5 fL 9.8-13.0 L NRBC/100 WBC (test code = 7734078833) See_Comment [Automated [email or web address] ssage] The system which generated this result transmitted reference range: 0.0 - 10.0 /100 WBCs. The reference range was not used to interpret this result as normal/abnormal. NRBC x10^3 (test code = 0495644827) See_Comment [Automated [employer]] The system which generated this result transmitted reference range: 10*3/?L. The reference range was not used to interpret this result as normal/abnormal. GRAN MAT (NEUT) % (test code = 770-8) 38.2 % IMM GRAN % (test code = 6170794019) 0.00 % LYMPH % (test code = 736-9) 53.7 % MONO % (test code = 5905-5) 7.5 % EOS % (test code = 713-8) 0.3 % BASO % (test code = 706-2) 0.3 % GRAN MAT x10^3(ANC) (test code = 2277844219) 2.46 10*3/uL 1.99-6.95 IMM GRAN x10^3 (test code = 2248366026) 0.00-0.06 LYMPH x10^3 (test code = 731-0) 3.46 10*3/uL 1.09-3.23 H MONO x10^3 (test code = 742-7) 0.48 10*3/uL 0.36-1.02 EOS x10^3 (test code = 711-2) 0.06-0.53 L BASO x10^3 (test code = 704-7) 0.01-0.09 Lab Interpretation (test code = 39961-8) Abnormal [facility] ParkwayLIPID PANEL (30234)(TOTAL CHOLESTEROL, TRIGLYCERIDES, HDL)2022-10-11 20:32:44* Test Item Value Reference Range Interpretation Comme nts CHOL (test code = 1438421844) 195 mg/dL 120-200 HDL (test code = 7408457607) 36 mg/dL See_Comment L [Automated [employer]] The system which generated this result transmitted reference range: >=40. The reference range was not used to interpret this result as normal/abnormal. HDLC RATIO (test code = 5395487745) See_Comment H [Automated [employer]] The system which generated this result transmitted reference range: <=5.0. The reference range was not used to interpret this result as normal/abnormal. TRIG (test code = 0435005977) 84 mg/dL 30-170 LDL CHOL (test code = 10523-7) 142 mg/dL See_Comment [Automated [employer]] The system which generated this result transmitted reference range: <=160. The reference range was not used to interpret this result as normal/abnormal. VLDL (test code = 1930785323) 17 mg/dL 5-60 Lab Interpretation (test code = 34077-9) Abnormal [facility] ParkwayN-TERMINAL [id number] 14:23:55* Test Item Value Reference Range Interpretation Comme nts NT-proBNP (test code = 6044648359) See_Comment [Automated message] The system which generated this result transmitted reference range: <=125. The reference range was not used to interpret this result as normal/abnormal. KRYSTLE (test code = KRYSTLE) Biotin has been reported to cause a negative bias, interpret results relative to patient's use of biotin. Lab Interpretation (test code = 89313-5) Normal [facility]wayACTIVATED PARTIAL THRMPLAS [id number] 14:23:25* Test Item Value Reference Range Interpretation Comme nts APTT Patient (test code = 3173-2) See_Comment [Automated message] The system which generated this result transmitted reference range: 23 - 38 Seconds. The reference range was not used to interpret this result as normal/abnormal. KRYSTLE (test code = KRYSTLE) The [facility] patient population mean normal value for aPTT is 30 seconds. Lab Interpretation (test code = 54507-5) Normal [facility]way[facility]ASE2023-01-28 14:23:05* Test Item Value Reference Range Interpretation Comme [facility] LIPASE (test code = 8408340924) 502 U/L 0-220 H Lab Interpretation (test cod e = 31913-2) Abnormal [facility]way[facility]. METABOLIC PANEL (50666)2022-10-11 14:23:05* Test Item Value Reference Range Interpretation Comme nts NA (test code = 9132543394) 139 mmol/L 135-145 K (test code = 6917871745) 5.0 mmol/L 3.5-5.0 Slight hemolysis CL (test code = 7241377212) 103 mmol/L 98-108 CO2 TOTAL (test code = 4433600323) 28 mmol/L 23-31 AGAP (test code = 9877341051) 2-16 BUN (test code = 0476938214) 17 mg/dL 7-23 Slight hemolysis GLUCOSE (test code = 8022408498) 103 mg/dL 70-110 CREATININE (test code = 1882263712) 0.80 mg/dL 0.60-1.25 TOTAL BILI (test code = 8768105922) 1.6 mg/dL 0.1-1.1 H CALCIUM (test code = 0289228457) 9.0 mg/dL 8.6-10.6 T PROTEIN (test code = 0306064784) 8.4 g/dL 6.3-8.2 H ALBUMIN (test code = 2363227935) 4.8 g/dL 3.5-5.0 ALK PHOS (test code = 5746388161) 57 U/L 34-122 Slight hemolysis ALTv (test code = 1742-6) 49 U/L 5-50 AST(SGOT) (test code = 7716126704) 77 U/L 13-40 H Slight hemolysis eGFR (test code = 0592181179) mL/min/1.73m2 KRYSTLE (test code = KRYSTLE) Association [...] imaging tests). Lab Interpretation (test code = 22656-2) Abnormal [facility] ParkwayTROPONIN [id number] 14:23:05* Test Item Value Reference Range Interpretation Comments TROPONIN I (test code = 8856713116) 0.018 ng/mL See_Comment [Automated message] The system [...] of biotin. Lab Interpretation (test code = 22349-3) Normal [facility] ParkwayPROTHROMBIN TIME / [id number] 14:20:24* Test Item Value Reference Range Interpretation Comme nts PROTIME PATIENT (test code = 5964-2) See_Comment [Automated [employer]] The system which generated this result transmitted reference range: 12.0 - 14.7 Seconds. The reference range was not used to interpret this result as normal/abnormal. INR (test code = 6301-6) Normal INR <1.1; Warfarin Therapeutic range 2.0 to 3.0 or 2.5 to 3.5, depending upon the indications. Lab Interpretation (test code = 69692-9) Normal [facility] WITH [id number] 13:55:05* Test Item Value Reference Range Interpretation Comme nts WBC (test code = 6690-2) See_Comment [Automated [employer]] The system which generated this result transmitted reference range: 4.20 - 10.70 10*3/?L. The reference range was not used to interpret this result as normal/abnormal. RBC (test code = 789-8) See_Comment [Automated [employer]] The system which generated this result [...] 34.9 g/dL 31.2-35.0 RDW-SD (test code = 92440-4) 40.4 fL 38.5-51.6 RDW-CV (test code = 788-0) 13.0 % 12.1-15.4 PLT (test code = 777-3) See_Comment [Automated [employer]] The system which generated this result transmitted reference range: 150 - 328 10*3/?L. The reference range was not used to interpret this result as normal/abnormal. MPV (test code = 74431-8) 9.1 fL 9.8-13.0 L NRBC/100 WBC (test code = 7522270169) See_Comment [Automated [email or web address]] The system which generated this result transmitted reference range: 0.0 - 10.0 /100 WBCs. The reference range was not used to interpret this result as normal/abnormal. NRBC x10^3 (test code = 7654583358) See_Comment [Automated messa ge] The system which generated this result transmitted reference range: 10*3/?L. The reference range was not used to interpret this result as normal/abnormal. GRAN MAT (NEUT) % (test code = 770-8) 53.2 % IMM GRAN % (test code = 0481184978) 0.10 % LYMPH % (test code = 736-9) 36.6 % MONO % (test code = 5905-5) 9.3 % EOS % (test code = 713-8) 0.5 % BASO % (test code = 706-2) 0.3 % GRAN MAT x10^3(ANC) (test code = 7878051019) 4.25 10*3/uL 1.99-6.95 IMM GRAN x10^3 (test code = 2450987883) 0.00-0.06 LYMPH x10^3 (test code = 731-0) 2.92 10*3/uL 1.09-3.23 MONO x10^3 (test code = 742-7) 0.74 10*3/uL 0.36-1.02 EOS x10^3 (test code = 711-2) 0.04 10*3/uL 0.06-0.53 L BASO x10^3 (test code = 704-7) 0.01-0.09 Lab Interpretation (test code = 35708-5) Abnormal [facility]way[facility]. METABOLIC PANEL (69686)2022-06-09 13:23:22* Test Item Value Reference Range Interpretation Comme nts NA (test code = 8440632055) 138 mmol/L 135-145 K (test code = 5150023436) 4.5 mmol/L 3.5-5 CL (test code = 7022884695) 106 mmol/L 98-108 CO2 TOTAL (test code = 5294810232) 24 mmol/L 23-31 AGAP (test code = 8183337648) 2-16 BUN (test code = 7253722386) 18 mg/dL 7-23 GLUCOSE (test code = 4594690819) 97 mg/dL 70-110 CREATININE (test code = 3185915910) 0.98 mg/dL 0.6-1.25 TOTAL BILI (test code = 7160590409) 0.5 mg/dL 0.1-1.1 CALCIUM (test code = 3486744617) 9.3 mg/dL 8.6-10.6 T PROTEIN (test code = 3143022179) 7.3 g/dL 6.3-8.2 ALBUMIN (test code = 3424823673) 4.5 g/dL 3.5-5 ALK PHOS (test code = 4822047978) 65 U/L 34-122 ALTv (test code = 1742-6) 27 U/L 5-50 AST(SGOT) (test code = 4031542392) 33 U/L 13-40 eGFR (test code = 4876018095) mL/min/1.73m2 KRYSTLE (test code = KRYSTLE) Association [...] or urine or abnormalities in imaging tests). [facility]way[facility] 13:23:01* Test Item Value Reference Range Interpretation Comme nts LIPASE (test code = 2013868732) 596 U/L 0-220 H Lab Interpretation (test cod e = 36270-7) Abnormal [facility] WITH [id number] 13:09:00* Test Item Value Reference Range Interpretation [...] g/dL 31.2-35 H RDW-SD (test code = 40612-1) 38.3 fL 38.5-51.6 L RDW-CV (test code = 788-0) 12.3 % 12.1-15.4 PLT (test code = 777-3) See_Comment [Automated messa ge] The system which generated this result transmitted reference range: 150 - 328 10*3/?L. The reference range was not used to interpret this result as normal/abnormal. MPV (test code = 42314-0) 9.2 fL 9.8-13 L NRBC/100 WBC (test code = 6942855458) See_Comment [Automated [email or web address]age] The system which generated this result transmitted reference range: 0.0 - 10.0 /100 WBCs. The reference range was not used to interpret this result as normal/abnormal. NRBC x10^3 (test code = 4401253189) See_Comment [Automated messa ge] The system which generated this result transmitted reference range: 10*3/?L. The reference range was not used to interpret this result as normal/abnormal. GRAN MAT (NEUT) % (test code = 770-8) 47.3 % IMM GRAN % (test code = 8006860814) 0.30 % LYMPH % (test code = 736-9) 43.8 % MONO % (test code = 5905-5) 7.8 % EOS % (test code = 713-8) 0.5 % BASO % (test code = 706-2) 0.3 % GRAN MAT x10^3(ANC) (test code = 4324584333) 3.04 10*3/uL 1.99-6.95 IMM GRAN x10^3 (test code = 7394960521) 0-0.06 LYMPH x10^3 (test code = 731-0) 2.81 10*3/uL 1.09-3.23 MONO x10^3 (test code = 742-7) 0.50 10*3/uL 0.36-1.02 EOS x10^3 (test code = 711-2) 0.03 10*3/uL 0.06-0.53 L BASO x10^3 (test code = 704-7) 0.01-0.09 Lab Interpretation (test code = 53159-3) Abnormal [facility] METABOLIC PANEL (NA, K, CL, CO2, GLUCOSE, BUN, CREATININE, CA)2021-11-01 10:40:12* Test Item Value Reference Range Interpretation Comme nts NA (test code = 3711831297) 136 mmol/L 135-145 K (test code = 5848598841) 4.2 mmol/L 3.5-5.0 CL (test code = 5912503298) 104 mmol/L 98-108 CO2 TOTAL (test code = 8489261435) 31 mmol/L 23-31 AGAP (test code = 5659177479) 2-16 L BUN (test code = 0349280109) 15 mg/dL 7-23 GLUCOSE (test code = 1109479498) 91 mg/dL 70-110 CREATININE (test code = 7230355841) 0.96 mg/dL 0.60-1.25 CALCIUM (test code = 4577964489) 8.5 mg/dL 8.6-10.6 L eGFR (test code = 5273794171) mL/min/1.73m2 KRYSTLE (test code = KRYSTLE) Association [...] imaging tests). Lab Interpretation (test code = 29528-1) Abnormal [facility]wayMAGNESIUM2022-02-18 10:40:12* Test Item Value Reference Range Interpretation Comme nts MAGNESIUM (test code = 2912879822) 1.7 mg/dL 1.7-2.4 Lab Interpretation (test cod e = 08121-4) Normal [facility]wayPHOSPHORUS2022-02-18 10:39:52* Test Item Value Reference Range Interpretation Comme nts PHOSPHORUS (test code = 4836037476) 4.4 mg/dL 2.5-5.0 Lab Interpretation (test cod e = 49295-4) Normal [facility] WITH [id number] 10:25:11* Test Item Value Reference Range Interpretation [...] 34.3 g/dL 31.2-35.0 RDW-SD (test code = 65936-7) 38.5 fL 38.5-51.6 RDW-CV (test code = 788-0) 12.3 % 12.1-15.4 PLT (test code = 777-3) See_Comment [Automated messa ge] The system which generated this result transmitted reference range: 150 - 328 10*3/?L. The reference range was not used to interpret this result as normal/abnormal. MPV (test code = 48875-7) 9.6 fL 9.8-13.0 L NRBC/100 WBC (test code = 2087050959) See_Comment [Automated [email or web address]] The system which generated this result transmitted reference range: 0.0 - 10.0 /100 WBCs. The reference range was not used to interpret this result as normal/abnormal. NRBC x10^3 (test code = 6808235976) <0.01 See_Comment [Automated messa ge] The system which generated this result transmitted reference range: 10*3/?L. The reference range was not used to interpret this result as normal/abnormal. GRAN MAT (NEUT) % (test code = 770-8) 49.5 % IMM GRAN % (test code = 0282944525) 0.30 % LYMPH % (test code = 736-9) 39.4 % MONO % (test code = 5905-5) 9.7 % EOS % (test code = 713-8) 0.8 % BASO % (test code = 706-2) 0.3 % GRAN MAT x10^3(ANC) (test code = 9067914615) 3.13 10*3/uL 1.99-6.95 IMM GRAN x10^3 (test code = 8611905194) <0.03 0.00-0.06 LYMPH x10^3 (test code = 731-0) 2.49 10*3/uL 1.09-3.23 MONO x10^3 (test code = 742-7) 0.61 10*3/uL 0.36-1.02 EOS x10^3 (test code = 711-2) 0.05 10*3/uL 0.06-0.53 L BASO x10^3 (test code = 704-7) <0.03 0.01-0.09 Lab Interpretation (test code = 67870-9) Abnormal [facility]way[facility] [id number] 17:32:56* Test Item Value Reference Range Interpretation Comme nts NT-proBNP (test code = 1797514310) 13 pg/mL See_Comment [Automated message] The system which generated this result transmitted reference range: <=125. The reference range was not used to interpret this result as normal/abnormal. KRYSTLE (test code = KRYSTLE) Biotin has been reported to cause a negative bias, interpret results relative to patient's use of biotin. Lab Interpretation (test code = 14374-0) [facility] [id number] 10:50:49* Test Item Value Reference Range Interpretation Comme nts NT-proBNP (test code = 3833967257) <11 See_Comment [Automated message] The system which generated this result transmitted reference range: <=125 pg/mL. The reference range was not used to interpret this result as normal/abnormal. KRYSTLE (test code = KRYSTLE) Biotin has been reported to cause a negative bias, interpret results relative to patient's use of biotin. Lab Interpretation (test code = 87248-2) Normal [facility] [id number] 10:36:56* Test Item Value Reference Range Interpretation Comments TROPONIN I (test code = 8373550810) 0.004 ng/mL See_Comment [Automated message] The system [...] of biotin. Lab Interpretation (test code = 02786-4) Normal [facility]. METABOLIC PANEL (97437)2021-10-31 10:33:50* Test Item Value Reference Range Interpretation Comme nts NA (test code = 8063985610) 139 mmol/L 135-145 K (test code = 8416942861) 4.0 mmol/L 3.5-5.0 CL (test code = 1689227417) 109 mmol/L 98-108 H CO2 TOTAL (test code = 5004754554) 27 mmol/L 23-31 AGAP (test code = 8630759065) 2-16 BUN (test code = 2428635386) 16 mg/dL 7-23 GLUCOSE (test code = 0447402237) 97 mg/dL 70-110 CREATININE (test code = 8719390758) 1.00 mg/dL 0.60-1.25 TOTAL BILI (test code = 2060088215) 1.0 mg/dL 0.1-1.1 CALCIUM (test code = 2780463504) 8.7 mg/dL 8.6-10.6 T PROTEIN (test code = 2738697112) 7.9 g/dL 6.3-8.2 ALBUMIN (test code = 7305010000) 4.4 g/dL 3.5-5.0 ALK PHOS (test code = 9453107259) 60 U/L 34-122 ALTv (test code = 1742-6) 56 U/L 5-50 H AST(SGOT) (test code = 6872474717) 49 U/L 13-40 H eGFR (test code = 7562698015) mL/min/1.73m2 KRYSTLE (test code = KRYSTLE) Association [...] imaging tests). Lab Interpretation (test code = 10672-3) [facility] [id number] 10:25:32* Test Item Value Reference Range Interpretation Comme nts MAGNESIUM (test code = 4389376761) 1.8 mg/dL 1.7-2.4 Lab Interpretation (test cod e = 86851-6) Normal [facility]2022-02-17 10:25:12* Test Item Value Reference Range Interpretation Comme nts PHOSPHORUS (test code = 4177435436) 3.9 mg/dL 2.5-5.0 Lab Interpretation (test cod e = 36036-1) Normal [facility]wayCREAT[facility] [id number] 10:24:52* Test Item Value Reference Range Interpretation Comme nts CK (test code = 4359178949) 215 U/L 33-194 H Lab Interpretation (test cod e = 03648-2) Abnormal [facility]wayCBC with Rsiwipkypfit4563-09-83 10:18:09* Test Item Value Reference Range Interpretation Comme nts WBC (test code = 6690-2) See_Comment [Automated [employer]] The system which generated this result transmitted reference range: 4.20 - 10.70 10*3/?L. The reference range was not used to interpret this result as normal/abnormal. RBC (test code = 789-8) See_Comment [Automated [employer]] The system which generated this result [...] 33.9 g/dL 31.2-35.0 RDW-SD (test code = 54040-9) 41.3 fL 38.5-51.6 RDW-CV (test code = 788-0) 13.0 % 12.1-15.4 PLT (test code = 777-3) See_Comment [Automated [employer]] The system which generated this result transmitted reference range: 150 - 328 10*3/?L. The reference range was not used to interpret this result as normal/abnormal. MPV (test code = 32515-5) 10.0 fL 9.8-13.0 NRBC/100 WBC (test code = 1623972932) See_Comment [Automated [employer] ssage] The system which generated this result transmitted reference range: 0.0 - 10.0 /100 WBCs. The reference range was not used to interpret this result as normal/abnormal. NRBC x10^3 (test code = 2569244612) <0.01 See_Comment [Automated messa ge] The system which generated this result transmitted reference range: 10*3/?L. The reference range was not used to interpret this result as normal/abnormal. GRAN MAT (NEUT) % (test code = 770-8) 46.4 % IMM GRAN % (test code = 0244259082) 0.20 % LYMPH % (test code = 736-9) 44.0 % MONO % (test code = 5905-5) 8.3 % EOS % (test code = 713-8) 0.7 % BASO % (test code = 706-2) 0.4 % GRAN MAT x10^3(ANC) (test code = 6838450117) 3.73 10*3/uL 1.99-6.95 IMM GRAN x10^3 (test code = 5148895585) <0.03 0.00-0.06 LYMPH x10^3 (test code = 731-0) 3.55 10*3/uL 1.09-3.23 H MONO x10^3 (test code = 742-7) 0.67 10*3/uL 0.36-1.02 EOS x10^3 (test code = 711-2) 0.06 10*3/uL 0.06-0.53 BASO x10^3 (test code = 704-7) 0.03 10*3/uL 0.01-0.09 Lab Interpretation (test code = 89899-3) Abnormal [facility] ParkwayPROTHROMBIN TIME / [id number] 10:18:09* Test Item Value Reference Range Interpretation [...] the indications. Lab Interpretation (test code = 05032-6) Normal [facility] ParkwayTRVIMALNIN [id number] 07:43:50* Test Item Value Reference Range Interpretation Comments TROPONIN I (test code = 1339219573) 0.005 ng/mL See_Comment [Automated message] The system [...] of biotin. Lab Interpretation (test code = 38364-6) Normal [facility]wayCOMP. METABOLIC PANEL (44788)2021-10-30 20:56:25* Test Item Value Reference Range Interpretation Comme nts NA (test code = 7327076407) 139 mmol/L 135-145 K (test code = 6219230981) 4.8 mmol/L 3.5-5.0 CL (test code = 0978315221) 105 mmol/L 98-108 CO2 TOTAL (test code = 9095578324) 26 mmol/L 23-31 AGAP (test code = 6326187945) 2-16 BUN (test code = 5070332171) 18 mg/dL 7-23 GLUCOSE (test code = 2811575813) 135 mg/dL 70-110 H CREATININE (test code = 6855393857) 0.98 mg/dL 0.60-1.25 TOTAL BILI (test code = 0427435335) 0.8 mg/dL 0.1-1.1 CALCIUM (test code = 5950029138) 10.0 mg/dL 8.6-10.6 T PROTEIN (test code = 8709311106) 10.3 g/dL 6.3-8.2 H ALBUMIN (test code = 8380661614) 5.5 g/dL 3.5-5.0 H ALK PHOS (test code = 3281887934) 74 U/L 34-122 ALTv (test code = 1742-6) 69 U/L 5-50 H AST(SGOT) (test code = 0829132188) 59 U/L 13-40 H eGFR (test code = 8668156989) mL/min/1.73m2 KRYSTLE (test code = KRYSTLE) Association [...] imaging tests). Lab Interpretation (test code = 63118-2) Abnormal [facility]wayLIPASE2022-02-16 20:56:05* Test Item Value Reference Range Interpretation Comme nts LIPASE (test code = 7312608065) 70 U/L 0-220 Lab Interpretation (test cod e = 12024-7) Normal [facility] WITH [id number] 20:34:20* Test Item Value Reference Range Interpretation [...] 34.3 g/dL 31.2-35.0 RDW-SD (test code = 58677-7) 40.6 fL 38.5-51.6 RDW-CV (test code = 788-0) 12.8 % 12.1-15.4 PLT (test code = 777-3) See_Comment [Automated messa ge] The system which generated this result transmitted reference range: 150 - 328 10*3/?L. The reference range was not used to interpret this result as normal/abnormal. MPV (test code = 94432-4) 9.2 fL 9.8-13.0 L NRBC/100 WBC (test code = 1285501403) See_Comment [Automated [employer] ssage] The system which generated this result transmitted reference range: 0.0 - 10.0 /100 WBCs. The reference range was not used to interpret this result as normal/abnormal. NRBC x10^3 (test code = 2416605360) <0.01 See_Comment [Automated messa ge] The system which generated this result transmitted reference range: 10*3/?L. The reference range was not used to interpret this result as normal/abnormal. GRAN MAT (NEUT) % (test code = 770-8) 67.1 % IMM GRAN % (test code = 2273096240) 0.40 % LYMPH % (test code = 736-9) 24.5 % MONO % (test code = 5905-5) 7.6 % EOS % (test code = 713-8) 0.1 % BASO % (test code = 706-2) 0.3 % GRAN MAT x10^3(ANC) (test code = 4322934322) 7.34 10*3/uL 1.99-6.95 H IMM GRAN x10^3 (test code = 2466911051) 0.04 10*3/uL 0.00-0.06 LYMPH x10^3 (test code = 731-0) 2.67 10*3/uL 1.09-3.23 MONO x10^3 (test code = 742-7) 0.83 10*3/uL 0.36-1.02 EOS x10^3 (test code = 711-2) <0.03 0.06-0.53 L BASO x10^3 (test code = 704-7) 0.03 10*3/uL 0.01-0.09 Lab Interpretation (test code = 15309-5) Abnormal [facility]wayCREATINE [id number] 05:55:54* Test Item Value Reference Range Interpretation Comme nts CK (test code = 6880004826) 3682 U/L 33-194 H Lab Interpretation (test cod e = 75214-8) Abnormal [facility]wayCREATINE [id number] 05:55:54* Test Item Value Reference Range Interpretation Comme nts CK (test code = 0438970340) 3682 U/L 33-194 H Lab Interpretation (test cod e = 45096-7) [facility]normal [facility] (NA, K, CL, CO2, GLUCOSE, BUN, CREATININE, CA)2021-05-24 05:02:27* Test Item Value Reference Range Interpretation Comme nts NA (test code = 8919677094) 137 mmol/L 135-145 K (test code = 2067193135) 3.6 mmol/L 3.5-5.0 CL (test code = 0721600541) 105 mmol/L 98-108 CO2 TOTAL (test code = 1281794670) 23 mmol/L 23-31 AGAP (test code = 6098428157) 2-16 BUN (test code = 3796797536) 26 mg/dL 7-23 H GLUCOSE (test code = 4978888725) 95 mg/dL 70-110 CREATININE (test code = 2921620255) 1.31 mg/dL 0.60-1.25 H CALCIUM (test code = 5946131397) 8.6 mg/dL 8.6-10.6 eGFR (test code = 5268192321) mL/min/1.73m2 KRYSTLE (test code = KRYSTLE) Association [...] imaging tests). Lab Interpretation (test code = 41195-4) [facility]normal [facility] (NA, K, CL, CO2, GLUCOSE, BUN, CREATININE, CA)2021-05-24 05:02:27* Test Item Value Reference Range Interpretation Comme nts NA (test code = 0132084403) 137 mmol/L 135-145 K (test code = 7051878314) 3.6 mmol/L 3.5-5.0 CL (test code = 6736718133) 105 mmol/L 98-108 CO2 TOTAL (test code = 1790996304) 23 mmol/L 23-31 AGAP (test code = 1760409123) 2-16 BUN (test code = 5679193127) 26 mg/dL 7-23 H GLUCOSE (test code = 3846163523) 95 mg/dL 70-110 CREATININE (test code = 5377795349) 1.31 mg/dL 0.60-1.25 H CALCIUM (test code = 4020970935) 8.6 mg/dL 8.6-10.6 eGFR (test code = 6287228383) mL/min/1.73m2 KRYSTLE (test code = KRYSTLE) Association [...] imaging tests). Lab Interpretation (test code = 30773-0) Abnormal [facility] [id number] 02:56:10* Test Item Value Reference Range Interpretation Comments TROPONIN I (test code = 1576793158) 0.004 ng/mL See_Comment [Automated message] The system [...] of biotin. Lab Interpretation (test code = 64845-8) Normal [facility] [id number] 02:56:10* Test Item Value Reference Range Interpretation Comments TROPONIN I (test code = 6176980987) 0.004 ng/mL See_Comment [Automated message] The system [...] of biotin. Lab Interpretation (test code = 21293-0) Normal [facility]CRE[facility] [id number] 02:41:54* Test Item Value Reference Range Interpretation Comme nts CK (test code = 3402135263) 4607 U/L 33-194 H Lab Interpretation (test cod e = 48375-7) Abnormal [facility]CREAT[facility] [id number] 02:41:54* Test Item Value Reference Range Interpretation Comme nts CK (test code = 2579056031) 4607 U/L 33-194 H Lab Interpretation (test cod e = 62390-9) Abnormal [facility]wayN-TERMINAL [id number] 02:33:28* Test Item Value Reference Range Interpretation Comme nts NT-proBNP (test code = 1066776591) 14 pg/mL See_Comment [Automated message] The system which generated this result transmitted reference range: <=125. The reference range was not used to interpret this result as normal/abnormal. KRYSTLE (test code = KRYSTLE) Biotin has been reported to cause a negative bias, interpret results relative to patient's use of biotin. Lab Interpretation (test code = 21192-4) Normal [facility]wayN-TERMINAL [id number] 02:33:28* Test Item Value Reference Range Interpretation Comme nts NT-proBNP (test code = 3994945512) 14 pg/mL See_Comment [Automated message] The system which generated this result transmitted reference range: <=125. The reference range was not used to interpret this result as normal/abnormal. KRYSTLE (test code = KRYSTLE) Biotin has been reported to cause a negative bias, interpret results relative to patient's use of biotin. Lab Interpretation (test code = 26049-3) Normal [facility]wayURINALYSIS2021-09-10 02:29:35* Test Item Value Reference Range Interpretation Comme nts APPEARANCE (test code = 0066385500) Clear Clear COLOR (test code = 6467555236) Yellow Yellow PH (test code = 8197332479) 4.8-8.0 SP GRAVITY (test code = 2824409158) 1.003-1.030 GLU U QUAL (test code = 1305087046) Normal Normal BLOOD (test code = 8227354006) Negative Negative KETONES (test code = 5519254283) Negative Negative PROTEIN (test code = 2887-8) Negative Negative UROBILIN (test code = 2959791679) 2.0 mg/dL Normal A BILIRUBIN (test code = 3521706078) Negative Negative NITRITE (test code = 3703782139) Negative Negative LEUK MO (test code = 4816745804) Negative Negative RBC/HPF (test code = 0291508994) See_Comment [Automated [employer]] The system which generated this result transmitted reference range: 0 - 3 HPF. The reference range was not used to interpret this result as normal/abnormal. WBC/HPF (test code = 5681620505) See_Comment [Automated [employer]] The system which generated this result transmitted reference range: 0 - 5 HPF. The reference range was not used to interpret this result as normal/abnormal. BACTERIA (test code = 0100193814) Negative Negative MUCOUS (test code = 9701238366) Slight Negative LPF A SQ EPITH (test code = 9847557625) <1 HPF Lab Interpretation (test code = 52364-2) [facility]normal [facility]way[facility]AL[facility]IS2021-09-10 02:29:35* Test Item Value Reference Range Interpretation Comme nts APPEARANCE (test code = 9182577494) Clear Clear COLOR (test code = 4676641364) Yellow Yellow PH (test code = 4250487719) 4.8-8.0 SP GRAVITY (test code = 6131124290) 1.003-1.030 GLU U QUAL (test code = 8285838635) Normal Normal BLOOD (test code = 1597856149) Negative Negative KETONES (test code = 7775668358) Negative Negative PROTEIN (test code = 2887-8) Negative Negative UROBILIN (test code = 6283661154) 2.0 mg/dL Normal A BILIRUBIN (test code = 8307938610) Negative Negative NITRITE (test code = 8766653032) Negative Negative LEUK MO (test code = 1455402275) Negative Negative RBC/HPF (test code = 4552306629) See_Comment [Automated [employer]] The system which generated this result transmitted reference range: 0 - 3 HPF. The reference range was not used to interpret this result as normal/abnormal. WBC/HPF (test code = 2093385923) See_Comment [Automated [employer]] The system which generated this result transmitted reference range: 0 - 5 HPF. The reference range was not used to interpret this result as normal/abnormal. BACTERIA (test code = 5091853469) Negative Negative MUCOUS (test code = 4520560490) Slight Negative LPF A SQ EPITH (test code = 1514437462) <1 HPF Lab Interpretation (test code = 13225-1) Abnormal [facility]. METABOLIC PANEL (49226)2021-05-24 02:25:07* Test Item Value Reference Range Interpretation Comme nts NA (test code = 5741663858) 137 mmol/L 135-145 K (test code = 1551397268) 3.1 mmol/L 3.5-5.0 L CL (test code = 6487038868) 102 mmol/L 98-108 CO2 TOTAL (test code = 9412343796) 22 mmol/L 23-31 L AGAP (test code = 8025681418) 2-16 BUN (test code = 0834124778) 28 mg/dL 7-23 H GLUCOSE (test code = 4215702490) 132 mg/dL 70-110 H CREATININE (test code = 1152061127) 1.77 mg/dL 0.60-1.25 H TOTAL BILI (test code = 7159830123) 1.0 mg/dL 0.1-1.1 CALCIUM (test code = 8846007212) 9.4 mg/dL 8.6-10.6 T PROTEIN (test code = 1190351981) 9.4 g/dL 6.3-8.2 H ALBUMIN (test code = 3540116114) 5.0 g/dL 3.5-5.0 ALK PHOS (test code = 6434943380) 79 U/L 34-122 ALTv (test code = 1742-6) 112 U/L 5-50 H AST(SGOT) (test code = 1937818889) 152 U/L 13-40 H eGFR (test code = 5789084757) mL/min/1.73m2 KRYSTLE (test code = KRYSTLE) Association [...] imaging tests). Lab Interpretation (test code = 58786-9) Abnormal [facility]. METABOLIC PANEL (85559)2021-05-24 02:25:07* Test Item Value Reference Range Interpretation Comme nts NA (test code = 1737394676) 137 mmol/L 135-145 K (test code = 1964145647) 3.1 mmol/L 3.5-5.0 L CL (test code = 9337389850) 102 mmol/L 98-108 CO2 TOTAL (test code = 0272842999) 22 mmol/L 23-31 L AGAP (test code = 2121590031) 2-16 BUN (test code = 2886870086) 28 mg/dL 7-23 H GLUCOSE (test code = 1410816183) 132 mg/dL 70-110 H CREATININE (test code = 0247209421) 1.77 mg/dL 0.60-1.25 H TOTAL BILI (test code = 3564336136) 1.0 mg/dL 0.1-1.1 CALCIUM (test code = 4494964733) 9.4 mg/dL 8.6-10.6 T PROTEIN (test code = 9973024241) 9.4 g/dL 6.3-8.2 H ALBUMIN (test code = 3084343564) 5.0 g/dL 3.5-5.0 ALK PHOS (test code = 9574425529) 79 U/L 34-122 ALTv (test code = 1742-6) 112 U/L 5-50 H AST(SGOT) (test code = 3683764383) 152 U/L 13-40 H eGFR (test code = 6068958638) mL/min/1.73m2 KRYSTLE (test code = KRYSTLE) Association [...] imaging tests). Lab Interpretation (test code = 43039-4) Abnormal [facility] WITH [id number] 02:03:22* Test Item Value Reference Range Interpretation [...] g/dL 31.2-35.0 H RDW-SD (test code = 00404-0) 39.7 fL 38.5-51.6 RDW-CV (test code = 788-0) 12.7 % 12.1-15.4 PLT (test code = 777-3) See_Comment [Automated messa ge] The system which generated this result transmitted reference range: 150 - 328 10*3/?L. The reference range was not used to interpret this result as normal/abnormal. MPV (test code = 22027-3) 9.7 fL 9.8-13.0 L NRBC/100 WBC (test code = 2240975417) See_Comment [Automated [employer]] The system which generated this result transmitted reference range: 0.0 - 10.0 /100 WBCs. The reference range was not used to interpret this result as normal/abnormal. NRBC x10^3 (test code = 1542001834) <0.01 See_Comment [Automated messa ge] The system which generated this result transmitted reference range: 10*3/?L. The reference range was not used to interpret this result as normal/abnormal. GRAN MAT (NEUT) % (test code = 770-8) 45.9 % IMM GRAN % (test code = 6237293843) 0.20 % LYMPH % (test code = 736-9) 41.7 % MONO % (test code = 5905-5) 11.6 % EOS % (test code = 713-8) 0.3 % BASO % (test code = 706-2) 0.3 % GRAN MAT x10^3(ANC) (test code = 8864541599) 3.95 10*3/uL 1.99-6.95 IMM GRAN x10^3 (test code = 5004395120) <0.03 0.00-0.06 LYMPH x10^3 (test code = 731-0) 3.60 10*3/uL 1.09-3.23 H MONO x10^3 (test code = 742-7) 1.00 10*3/uL 0.36-1.02 EOS x10^3 (test code = 711-2) 0.03 10*3/uL 0.06-0.53 L BASO x10^3 (test code = 704-7) 0.03 10*3/uL 0.01-0.09 Lab Interpretation (test code = 20466-2) Abnormal [facility] WITH [id number] 02:03:22* Test Item Value Reference Range Interpretation Comme nts WBC (test code = 6690-2) See_Comment [Automated [employer]] The system which generated this result transmitted reference range: 4.20 - 10.70 10*3/?L. The reference range was not used to interpret this result as normal/abnormal. RBC (test code = 789-8) See_Comment [Automated [employer]] The system which generated this result [...] g/dL 31.2-35.0 H RDW-SD (test code = 05223-5) 39.7 fL 38.5-51.6 RDW-CV (test code = 788-0) 12.7 % 12.1-15.4 PLT (test code = 777-3) See_Comment [Automated messa ge] The system which generated this result transmitted reference range: 150 - 328 10*3/?L. The reference range was not used to interpret this result as normal/abnormal. MPV (test code = 64461-2) 9.7 fL 9.8-13.0 L NRBC/100 WBC (test code = 9473070661) See_Comment [Automated [employer]] The system which generated this result transmitted reference range: 0.0 - 10.0 /100 WBCs. The reference range was not used to interpret this result as normal/abnormal. NRBC x10^3 (test code = 4606421751) <0.01 See_Comment [Automated [employer]] The system which generated this result transmitted reference range: 10*3/?L. The reference range was not used to interpret this result as normal/abnormal. GRAN MAT (NEUT) % (test code = 770-8) 45.9 % IMM GRAN % (test code = 0513635791) 0.20 % LYMPH % (test code = 736-9) 41.7 % MONO % (test code = 5905-5) 11.6 % EOS % (test code = 713-8) 0.3 % BASO % (test code = 706-2) 0.3 % GRAN MAT x10^3(ANC) (test code = 5254481853) 3.95 10*3/uL 1.99-6.95 IMM GRAN x10^3 (test code = 9944536427) <0.03 0.00-0.06 LYMPH x10^3 (test code = 731-0) 3.60 10*3/uL 1.09-3.23 H MONO x10^3 (test code = 742-7) 1.00 10*3/uL 0.36-1.02 EOS x10^3 (test code = 711-2) 0.03 10*3/uL 0.06-0.53 L BASO x10^3 (test code = 704-7) 0.03 10*3/uL 0.01-0.09 Lab Interpretation (test code = 28444-2) Abnormal [facility] (ID NOW RAPID TESTING)2021-05-02 00:31:00* Test Item Value Reference Range Interpretation Comme nts SARS-CoV-2 Rapid ID NOW (test code = 64353-1) Not Detected Not Detected KRYSTLE (test code = KRYSTLE) ID NOW COVID-19 As say is an isothermal nucleic acid amplification test intended for the qualitative detection of nucleic acid from SARS-CoV-2 viral RNA in nasopharyngeal (WHITTLING ROOM OPERATOR) specimens. It is used under Emergency Use [...] clinically indicated. Lab Interpretation (test code = 52295-4) Normal [facility] STREP SCREEN FOR GROUP [id number] 00:25:45* Test Item Value Reference Range Interpretation Comme nts Streptococcus pyogenes (grou p A) antigen (test code = 18189-1) Negative Negative Lab Interpretation (test cod e = 43640-5) Normal [facility] (ID NOW RAPID TESTING)2021-04-02 01:41:42* Test Item Value Reference Range Interpretation Comme nts SARS-CoV-2 Rapid ID NOW (test code = 24368-8) Not Detected Not Detected KRYSTLE (test code = KRYSTLE) ID NOW COVID-19 As say is an isothermal nucleic acid amplification test intended for the qualitative detection of nucleic acid from SARS-CoV-2 viral RNA in nasopharyngeal (WHITTLING ROOM OPERATOR) specimens. It is used under Emergency Use [...] clinically indicated. Lab Interpretation (test code = 07734-3) [facility] FOR GROUP [id number] 01:39:31* Test Item Value Reference Range Interpretation Comme nts Streptococcus pyogenes (grou p A) antigen (test code = 63313-8) Negative Negative Lab Interpretation (test cod e = 41915-2) Normal [facility]wayXR WRIST 3+ VW [id number] 02:41:03 Impression: No acute osseous abnormality. AFC: [id number] of Report Exam: XR WRIST 3+ [...] soft tissue edema.IMPRESSIONImpression: No acute osseous abnormality.AFC: [id number] 460End of Report [facility]inalysis[facility]05 01:32:01* Test Item Value Reference Range Interpretation Comme nts APPEARANCE (test code = 4637223058) Clear Clear COLOR (test code = 7385094134) Yellow Yellow PH (test code = 6269862145) 4.8-8.0 SP GRAVITY (test code = 2065006812) 1.003-1.030 GLU U QUAL (test code = 7717260388) Normal Normal BLOOD (test code = 2715436653) Negative Negative KETONES (test code = 7548209651) Negative Negative PROTEIN (test code = 2887-8) Negative Negative UROBILIN (test code = 6468687175) 2.0 mg/dL Normal A BILIRUBIN (test code = 6273762242) Negative Negative NITRITE (test code = 2338985829) Negative Negative LEUK MO (test code = 9500665725) Negative Negative RBC/HPF (test code = 9693866683) See_Comment [Automated [employer]] The system which generated this result transmitted reference range: 0 - 3 HPF. The reference range was not used to interpret this result as normal/abnormal. WBC/HPF (test code = 5721833616) See_Comment [Automated [employer]] The system which generated this result transmitted reference range: 0 - 5 HPF. The reference range was not used to interpret this result as normal/abnormal. BACTERIA (test code = 4962524887) Few Negative A MUCOUS (test code = 8111352209) Slight Negative LPF A SQ EPITH (test code = 0108437935) <1 HPF Lab Interpretation (test code = 17304-3) [facility]normal [facility] CHEST 1 [id number] 04:09:05Impression: Mild thickening of the sol of the central airways, possibly reflectinginfectious or inflammatory bronchitis. RL: 460 AFC: [id number] Ordering physician: DARNELL HSU Indication: Cough and [...] airways, possibly reflectinginfectious or inflammatory bronchitis.RL: 460AFC: [id number] signed byMarisol Manzo MD, PhD at 11/14/2020 10:09 PM [facility]wayCOMPREHENSIVE METABOLIC [id number] 00:00:00* Test Item Value Reference Range Interpretation Comme nts GLUCOSE (test code = 2217) 101 MG/DL BUN (test code = 2208) 11 MG/DL CREATININE (test code = 2214) 0.88 MG/DL eGFR AMER. (test cod e = 32462) 118 ML/MIN/1.73 eGFR NON- AMER. (test code = 83567) 102 ML/MIN/1.73 CALC BUN/CREAT (test code = [...] code = 2219) 88 U/L COMPREHENSIVE METABOLIC [id number] 00:00:00* Test Item Value Reference Range Interpretation Comme nts GLUCOSE (test code = 2217) 101 MG/DL BUN (test code = 2208) 11 MG/DL CREATININE (test code = 2214) 0.88 MG/DL eGFR AMER. (test cod e = 68506) 118 ML/MIN/1.73 eGFR NON- AMER. (test code = 07886) 102 ML/MIN/1.73 CALC BUN/CREAT (test code = [...] (test code = 2219) 88 U/L N-TERMINAL GYQ-SCL1707-08-17 15:43:00* Test Item Value Reference Range Interpretation Comme nts NT-proBNP (test code = 8175369098) <11 See_Comment [Automated message] The system which generated this result transmitted reference range: <=125 pg/mL. The reference range was not used to interpret this result as normal/abnormal. KRYSTLE (test code = KRYSTLE) Biotin has been reported to cause a negative bias, interpret results relative to patient's use of biotin. Lab Interpretation (test code = 00505-1) Normal [facility] WITH TNOE3943-45-07 15:27:00* Test Item Value Reference Range Interpretation Comme nts WBC (test code = 6690-2) See_Comment [Automated [employer]] The system which generated this result transmitted reference range: 4.20 - 10.70 10*3/?L. The reference range was not used to interpret this result as normal/abnormal. RBC (test code = 789-8) See_Comment [Automated [employer]] The system which generated this result [...] g/dL 31.2-35 H RDW-SD (test code = 20317-6) 37.3 fL 38.5-51.6 L RDW-CV (test code = 788-0) 11.9 % 12.1-15.4 L PLT (test code = 777-3) See_Comment [Automated messa ge] The system which generated this result transmitted reference range: 150 - 328 10*3/?L. The reference range was not used to interpret this result as normal/abnormal. MPV (test code = 85081-4) 9.7 fL 9.8-13 L NRBC/100 WBC (test code = 4083715899) See_Comment [Automated [email or web address] ssage] The system which generated this result transmitted reference range: 0.0 - 10.0 /100 WBCs. The reference range was not used to interpret this result as normal/abnormal. NRBC x10^3 (test code = 1769508154) <0.01 See_Comment [Automated [employer]] The system which generated this result transmitted reference range: 10*3/?L. The reference range was not used to interpret this result as normal/abnormal. GRAN MAT (NEUT) % (test code = 770-8) 29.2 % IMM GRAN % (test code = 4296971418) 0.20 % LYMPH % (test code = 736-9) 59.0 % MONO % (test code = 5905-5) 10.1 % EOS % (test code = 713-8) 1.1 % BASO % (test code = 706-2) 0.4 % GRAN MAT x10^3(ANC) (test code = 5527117115) 1.57 10*3/uL 1.99-6.95 L IMM GRAN x10^3 (test code = 5668358490) <0.03 0-0.06 LYMPH x10^3 (test code = 731-0) 3.17 10*3/uL 1.09-3.23 MONO x10^3 (test code = 742-7) 0.54 10*3/uL 0.36-1.02 EOS x10^3 (test code = 711-2) 0.06 10*3/uL 0.06-0.53 BASO x10^3 (test code = 704-7) <0.03 0.01-0.09 Lab Interpretation (test code = 50596-3) [facility]normal [facility] 1 LQ9096-39-59 15:13:32No acute cardiopulmonary process. Preliminary Report Dictated by Resident: Efraín Alcaraz MD., have reviewed this study and agree withthe above report.PROCEDURE: XR CHEST1 VW CLINICAL INDICATION: dizzy TECHNIQUE: Frontal chest radiograph was obtained. COMPARISON: None FINDINGS: The lungs are clear. No pleural effusion or pneumothorax is seen. The heart is normal in size. No acute bony abnormality is noted. Wamb, Radiant Results Inft User - 09/30/2020 9:14 AM CSTPROCEDURE: XR CHEST 1 VWCLINICAL INDICATION: dizzy TECHNIQUE: Frontal chest radiograph was obtained.COMPARISON: NoneFINDINGS:The lungs are clear. No pleural effusion or pneumothorax is seen. The heart isnormal in size.No acute bony abnormality is noted.IMPRESSIONNo acute cardiopulmonary process.Preliminary Report Dictated by Resident: Luiz Ruiz MD., have reviewed thisstudy and agree withthe above report.[facility] ParkwayTROPONIN B2274-57-52 14:59:00* Test Item Value Reference Range Interpretation Comme nts TROPONIN I (test code = 2911756676) <0.012 See_Comment [Automated message] The system which [...] biotin. ? Lab Interpretation (test code = 85441-8) Normal [facility]wayCOMP. METABOLIC PANEL (50989)2020-09-30 14:59:00* Test Item Value Reference Range Interpretation Comme nts NA (test code = 5895468830) 139 mmol/L 135-145 K (test code = 4896081797) 3.8 mmol/L 3.5-5 CL (test code = 3609995999) 103 mmol/L 98-108 CO2 TOTAL (test code = 2258527964) 26 mmol/L 23-31 AGAP (test code = 4834577664) 2-16 BUN (test code = 4239757388) 11 mg/dL 7-23 GLUCOSE (test code = 4112262458) 163 mg/dL 70-110 H CREATININE (test code = 3287315818) 0.85 mg/dL 0.6-1.25 TOTAL BILI (test code = 3430614158) 0.6 mg/dL 0.1-1.1 CALCIUM (test code = 1563406705) 9.0 mg/dL 8.6-10.6 T PROTEIN (test code = 1849638781) 8.0 g/dL 6.3-8.2 ALBUMIN (test code = 0714865620) 4.4 g/dL 3.5-5 ALK PHOS (test code = 3897634420) 75 U/L 34-122 ALTv (test code = 1742-6) 61 U/L 5-50 H AST(SGOT) (test code = 5659037078) 54 U/L 13-40 H eGFR Calculation (Non-) (test code = 5920096518) mL/min/1.73m2 eGFR Calculation () (test code = 4788475961) mL/min/1.73m2 KRYSTLE (test code = KRYSTLE) Association [...] imaging tests). Lab Interpretation (test code = 57828-4) Abnormal [facility] ParkwayLIPASE, SGWES3137-83-71 14:59:00* Test Item Value Reference Range Interpretation Comme nts LIPASE (test code = 1006028192) 116 U/L 0-220 Lab Interpretation (test cod e = 55025-8) Normal [facility] ParkwayTroponin M9792-22-12 04:30:00* Test Item Value Reference Range Interpretation Comme nts TROPONIN I (test code = 7969567552) <0.012 See_Comment [Automated message] The system which [...] biotin. ? Lab Interpretation (test code = 64457-8) Normal [facility]wayComplete Metabolic Vksfr6208-75-98 03:24:00* Test Item Value Reference Range Interpretation Comme nts NA (test code = 4279441771) 137 mmol/L 135-145 K (test code = 5481230242) 4.7 mmol/L 3.5-5 CL (test code = 3065566205) 101 mmol/L 98-108 CO2 TOTAL (test code = 2528174217) 27 mmol/L 23-31 AGAP (test code = 1051141700) 2-16 BUN (test code = 0201757081) 16 mg/dL 7-23 GLUCOSE (test code = 6487219332) 226 mg/dL 70-110 H CREATININE (test code = 6990751717) 1.13 mg/dL 0.6-1.25 TOTAL BILI (test code = 2115114915) 0.7 mg/dL 0.1-1.1 CALCIUM (test code = 8549247411) 9.3 mg/dL 8.6-10.6 T PROTEIN (test code = 1304970967) 7.8 g/dL 6.3-8.2 ALBUMIN (test code = 5364493661) 3.9 g/dL 3.5-5 ALK PHOS (test code = 4846002892) 79 U/L 34-122 ALTv (test code = 1742-6) 62 U/L 5-50 H AST(SGOT) (test code = 7244328618) 49 U/L 13-40 H eGFR Calculation (Non-) (test code = 9129747760) mL/min/1.73m2 eGFR Calculation () (test code = 2073070466) mL/min/1.73m2 KRYSTLE (test code = KRYSTLE) Association [...] imaging tests). Lab Interpretation (test code = 05903-0) Abnormal [facility] ParkwayLipase, Jdlgi4971-19-92 03:23:00* Test Item Value Reference Range Interpretation Comme nts LIPASE (test code = 9645655981) 317 U/L 0-220 H Lab Interpretation (test cod e = 82047-8) Abnormal [facility] ParkwayCBC with Chkxhgbgflfu8726-96-65 03:21:00* Test Item Value Reference Range Interpretation [...] g/dL 31.2-35 H RDW-SD (test code = 04528-3) 37.9 fL 38.5-51.6 L RDW-CV (test code = 788-0) 12.4 % 12.1-15.4 PLT (test code = 777-3) See_Comment [Automated messa ge] The system which generated this result transmitted reference range: 150 - 328 10*3/?L. The reference range was not used to interpret this result as normal/abnormal. MPV (test code = 66993-0) 9.7 fL 9.8-13 L NRBC/100 WBC (test code = 3259969280) See_Comment [Automated [email or web address] ssage] The system which generated this result transmitted reference range: 0.0 - 10.0 /100 WBCs. The reference range was not used to interpret this result as normal/abnormal. NRBC x10^3 (test code = 8536089135) <0.01 See_Comment [Automated messa ge] The system which generated this result transmitted reference range: 10*3/?L. The reference range was not used to interpret this result as normal/abnormal. GRAN MAT (NEUT) % (test code = 770-8) 36.7 % IMM GRAN % (test code = 9173742992) 0.10 % LYMPH % (test code = 736-9) 50.9 % MONO % (test code = 5905-5) 11.1 % EOS % (test code = 713-8) 0.8 % BASO % (test code = 706-2) 0.4 % GRAN MAT x10^3(ANC) (test code = 0752245769) 2.59 10*3/uL 1.99-6.95 IMM GRAN x10^3 (test code = 2108345856) <0.03 0-0.06 LYMPH x10^3 (test code = 731-0) 3.61 10*3/uL 1.09-3.23 H MONO x10^3 (test code = 742-7) 0.79 10*3/uL 0.36-1.02 EOS x10^3 (test code = 711-2) 0.06 10*3/uL 0.06-0.53 BASO x10^3 (test code = 704-7) 0.03 10*3/uL 0.01-0.09 Lab Interpretation (test code = 86778-0) Abnormal [facility] Notes Date/Time Note Provider Source 2023-12-09 23:47:26 XsscR4ZbR4WX1OyxOCCJX8sjs72UcX7JmHCKunF 7CwizSmbEvVAGmXaGUhltXBOd3176-00-79S34: 47:26 Pt discharged with diagnosis of lumbar radiculopathy. Printed and verbal instructions reviewed with and given to pt. Prescriptions given x 2. Pt verbalized understanding of teaching, medication, and recommended follow-up. Denies questions or concerns at this time. Pt ambulatory at discharge. Appears in no apparent distress. No ataxia noted. Accompanied by family. 35096-0Eneimjzsu department GykrZV3091-25-19M05:47:42[facility] NoteTXT1.2.840.275459.1.13.104.2.7.2.72 7879|[id number] for patient aqmo48240-0JozuPMFTHURESBIGtetqelch C-CDA narrative [id number] R Goodrich RN[address] Av[id number] YRHFWTJOKLNYNPOFTBZ6090-12-77N41:47:421 .2.840.129046.1.72.3.15|1.2.840.191983. 1.13.104.2.7.2.727879_[id number] Shira Brumfield RN [facility] 2023-12-09 20:10:35 nMatRNp9LcDLXOBKyl7X1D8/CkduWQZ0tfS2TNO dMDOh/vE3llQ4UuSuShJ42Eup9109-70-76B18: 10:35 CC: Pt reports left sided low back pain going down left leg since Thursday. Today he felt the urge to void but could not, then had 2 episodes of voiding blood.PMHx: chronic pancreatitis, hep C (resolved), sciaticaAwake, alert, oriented, resp reg unlabored, skin warm, color appropriate for race, moves all ext without difficulty, amb with steady gait 57145-9Idmoldpou department Triage nkodPI2745-18-04Q56:11:54[facility] Triage noteTXT1.2.840.979018.1.13.104.2.7.2.72 7879|[id number] for patient yqsd69756-5Fvejbnaqr department NoteLNNARRATIVEFormatted C-CDA narrative [id number] R Shehadeh RN[address] Ysn[id number] WCTYCEWATFFCLTWIOUM3378-53-51N13:11:541 .2.840.743690.1.72.3.15|1.2.840.836943. 1.13.104.2.7.2.727879_[id number] Carol Wu RN [facility] 2023-12-09 19:46:00 9P3dkjjeBmNsaNvUjsXsxtAdAtJIcBHKOQFyDbx 2TopJKzIpPvobiaPxwV0JIgHs0130-15-93X26: 46:00 [facility] Emergency Department NotePatient Name: Noah PutnamDate of : 1970 53 year old maleTreatment Room: 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 Hematuria has since resolved. No N//V. No flank pain although pt reports that he has been having LEFT-SIDED lower back pain that radiates to the calf for past several months worsening in the past 4 days. Denies any new trauma but recalls a remote history of a fall from in roof several years ago while he was living in [place]. As a result of said fall, pt developed chronic recurrent low back pain. No fever or chills. No cauda equina symptomsHistory provided by: Patient and medical recordsLanguage medical interpreter used: NoDifficulty UrinatingPresenting symptoms: no dysuria, no penile discharge and no penile painContext: spontaneouslyRelieved by: NothingWorsened by: NothingIneffective treatments: None triedAssociated symptoms: hematuriaAssociated symptoms: no abdominal pain, no diarrhea, no fever, no flank pain, no genital itching, no genital lesions, no groin pain, no nausea, no penile swelling, no priapism, no scrotal swelling, no urinary frequency, no urinary hesitation, no urinary incontinence, no urinary retention and no vomitingRisk factors: no bladder surgery, no change in medication, no erectile dysfunction, no foreign body, no kidney stones, no recent infection, no sickle cell disease, no STI exposure and no urinary catheterPast Medical History/Immunizations:Past Medical History:Diagnosis DateGastric ulcerGERD (gastroesophageal reflux disease)Hepatitis CHTN (hypertension)Marijuana useSciaticaChronic PancreatitisTetanus received in last 5 years: YesAllergies:AllergiesAllergen ReactionsBee Venom Protein (Honey Bee) SwellingPast Social History:Tobacco UseNever smoked or used smokeless tobacco.Alcohol UseNot Currently.Drug UseNot Currently; Marijuana.Comments: formerPast Surgical History:Past Surgical History:Procedure Laterality DatePR FOREARM OR WRIST SURGERY LeftReview of Systems:Review of SystemsConstitutional: Negative. Negative for fever.HENT: Negative.Eyes: Negative.Respiratory: Negative.Breasts: Negative.Cardiovascular: Negative.Gastrointestinal: Negative. Negative for abdominal pain, diarrhea, nausea and vomiting.Genitourinary: Positive for hematuria, decreased urine volume and difficulty urinating. Negative for bladder incontinence, dysuria, hesitancy, urgency, frequency, flank pain, discharge, penile swelling, scrotal swelling, genital sores, penile pain, testicular pain and nocturia.Musculoskeletal: Positive for arthralgias and back pain. Negative for gait problem, joint swelling and myalgias.Skin: Negative.Neurological: Negative.Psychiatric/Behavioral: Negative.All other systems reviewed and are negative.Endocrine: Endocrine negativePhysical Exam:ED Triage Vitals [12/09/232011]Weight 122.5 kg (270 lb)Actual or estimated Estimated by patient/family reportHeight 1.956 m (6' 5")BP (!) 150/86Pulse 76Resp 18Temp 36.8 ?C (98.3 ?F)Temp source OralSpO2 96 %Measured on Room airPhysical ExamVitals and nursing note reviewed.Constitutional:General: He is not in acute distress.Appearance: Normal appearance. He is well-developed. He is obese. He is not ill-appearing, toxic-appearing or diaphoretic.HENT:Head: Normocephalic and atraumatic.Nose: Nose normal. No congestion or rhinorrhea.Mouth/Throat:Mouth: Mucous membranes are moist.Pharynx: Oropharynx is clear.Eyes:General: No scleral icterus.Right eye: No discharge.Left eye: No discharge.Extraocular Movements: Extraocular movements intact.Conjunctiva/sclera: Conjunctivae normal.Pupils: Pupils are equal, round, and reactive to light.Cardiovascular:Rate and Rhythm: Normal rate and regular rhythm.Pulses: Normal pulses.Heart sounds: Normal heart sounds. No murmur heard.Pulmonary:Effort: Pulmonary effort is normal. No respiratory distress.Breath sounds: Normal breath sounds. No stridor. No wheezing, rhonchi or rales.Chest:Chest wall: No tenderness.Abdominal:General: Bowel sounds are normal. There is no distension.Palpations: Abdomen is soft. There is no mass.Tenderness: There is no abdominal tenderness. There is no right CVA tenderness, left CVA tenderness, guarding or rebound.Hernia: No hernia is present.Musculoskeletal:General: No swelling, tenderness, deformity or signs of injury. Normal range of motion.Cervical back: Normal range of motion and neck supple. No rigidity or tenderness.Lymphadenopathy:Cervical: No cervical adenopathy.Skin:General: Skin is warm and dry.Capillary Refill: Capillary refill takes less than 2 seconds.Coloration: Skin is not jaundiced or pale.Findings: No bruising, erythema, lesion or rash.Neurological:General: No focal deficit present.Mental Status: He is alert and oriented to person, place, and time.Cranial Nerves: No cranial nerve deficit.Sensory: No sensory deficit.Motor: No weakness.Coordination: Coordination normal.Gait: Gait normal.Deep Tendon Reflexes: Reflexes normal.Psychiatric:Behavior: Behavior normal.Thought Content: Thought content normal.Judgment: Judgment normal.Radiology:CT ABDOMEN PELVIS W CONTRASTFinal ResultCT ABDOMEN PELVIS W CONTRASTHISTORY: 53 years-old; Male; Hematuria, unknown causeCOMPARISON: CT abdomen pelvis without contrast dated 08/03/2023.TECHNIQUE AND FINDINGS: Contiguous axial imaging from the level of thelungbases through the pubic symphysis was performed after the uncomplicatedadministration of intravenous Omnipaque contrast. Coronal and sagittalreconstructions were obtained. Auto mA and/or iterative reconstructionwere used to reduce radiation dose.FINDINGS:LOWER THORAX: The lung bases are clear. No cardiomegaly.LIVER: 6 mm segment V cyst is noted. Normal contour.GALLBLADDER AND BILIARY TREE: No intra or extrahepatic biliary ductaldilation.SPLEEN: Unremarkable.PANCREAS: No ductal dilatation or massesADRENAL GLANDS: No adrenal lesions.KIDNEYS: No hydronephrosis, stones, or masses. Homogeneous and symmetricalenhancement.GI TRACT: No dilation or bowel wall thickening.The appendix is normal..PERITONEUM AND RETROPERITONEUM: No free air or fluid collection.LYMPH NODES: No intra-abdominal or pelvic lymph node enlargement.PELVIS/BLADDER: Bladder is partially distended with no wall thickening.VESSELS: Patent.BONES AND SOFT TISSUES: No suspicious lytic or sclerotic bony lesions.IMPRESSIONNo acute intra-abdominal or pelvic abnormality.Preliminary Report Dictated by Resident: Azam Nelson MD., have reviewed this study and agree with the abovereport.Lab Results:Lab ResultsCBC WITH DIFF - AbnormalResult Value Ref RangeWBC 6.21 4.20 - 10.70 10*3/?LRBC 4.89 4.26 - 5.52 10*6/?LHGB 14.8 12.2 - 16.4 g/dLHCT 42.5 38.4 - 49.3 %MCV 86.9 81.7 - 95.6 fLMCH 30.3 26.1 - 32.7 pgMCHC 34.8 31.2 - 35.0 g/dLRDW-SD 39.9 38.5 - 51.6 fLRDW-CV 12.7 12.1 - 15.4 %PLT 240 150 - 328 10*3/?LMPV 9.8 9.8 - 13.0 fLNRBC/100 WBC 0.0 0.0 - 10.0 /100 WBCsNRBC x10^3 <0.01 10*3/?LGRAN MAT (NEUT) % 31.3 %IMM GRAN % 0.00 %LYMPH % 57.3 %MONO % 9.3 %EOS % 1.6 %BASO % 0.5 %GRAN MAT x10^3(ANC) 1.94 (*) 1.99 - 6.95 10*3/uLIMM GRAN x10^3 <0.03 0.00 - 0.06 10*3/uLLYMPH x10^3 3.56 (*) 1.09 - 3.23 10*3/uLMONO x10^3 0.58 0.36 - 1.02 10*3/uLEOS x10^3 0.10 0.06 - 0.53 10*3/uLBASO x10^3 0.03 0.01 - 0.09 10*3/uLCOMP. METABOLIC PANEL (93777) - AbnormalNA 141 135 - 145 mmol/LK 4.3 3.5 - 5.0 mmol/LCL 107 98 - 108 mmol/LCO2 TOTAL 26 23 - 31 mmol/LAGAP 8 2 - 16BUN 20 7 - 23 mg/dLGLUCOSE 123 (*) 70 - 110 mg/dLCREATININE 0.95 0.60 - 1.25 mg/dLTOTAL BILI 0.8 0.1 - 1.1 mg/dLCALCIUM 9.0 8.6 - 10.6 mg/Arsen PROTEIN 8.4 (*) 6.3 - 8.2 g/dLALBUMIN 4.3 3.5 - 5.0 g/dLALK PHOS 58 34 - 122 U/LALTv 33 5 - 50 U/LAST(SGOT) 52 (*) 13 - 40 U/LeGFR 96.9 mL/min/1.01y5UGLEBULNTN - AbnormalAPPEARANCE Clear ClearCOLOR Yellow YellowPH 5.0 4.8 - 8.0SP GRAVITY 1.030 1.003 - 1.030GLU U QUAL Normal NormalBLOOD Negative NegativeKETONES 5 mg/dL (*) NegativePROTEIN Negative NegativeUROBILIN 2.0 mg/dL (*) NormalBILIRUBIN Negative NegativeNITRITE Negative NegativeLEUK MO Negative NegativeRBC/HPF 1 0 - 3 HPFWBC/HPF 3 0 - 5 HPFBACTERIA Negative NegativeMUCOUS Slight (*) Negative LPFOrders and Treatments:Orders Placed This EncounterProceduresCT ABDOMEN PELVIS W CONTRASTCbc with DiffComp. Metabolic Panel (59952)UrinalysisOrders Placed This EncounterMedicationsketorolac (TORADOL) injection 30 mgiopamidol (ISOVUE 370-500 mL) injection 100 mLHYDROcodone-acetaminophen (NORCO) 10-325 mg tablet 1 tabletketorolac 10 mg tabletmethocarbamoL 750 mg tabletFirst Provider Eval:ED EventsDate/Time Event User Dhghsewn05/27/242019 Medical Screening Begins ABRAHAM ORANTES MD --12/09/232019 First Provider Evaluation ABRAHAM ORANTES MD --ED COURSEDiagnosis/Impression as of 12/09/232305Hematuria of unknown causeLumbar radiculopathyProcedures:ProceduresMDM:M edical Decision MakingRonfermin Putnam is a 53 year old male who presents to the ED with LBP with radiation to left calf and hematuriaProblems Addressed:Hematuria of unknown cause: acute illness or injuryDetails: ED evaluation laboratory and Imaging study results as documented in chartNo evidence of urethral calculus on work-upEtiology of said hematuria unclear. UA is negative fir blood.Pt denies any urethra;l discharge or painWill referLumbar radiculopathy: chronic illness or injuryDetails: ED management as documentedHas hx of chronic back pain//sciaticaPt was scheduled for an MRI but DNKA due to financial reasonsHas another appointment scheduled for an MRI in one week. Encouraged pt to keep said appt.Pt asking for work excuse and wants lifting resctrictionsAmount and/or Complexity of Data ReviewedExternal Data Reviewed: labs, radiology and notes.Labs: ordered. Decision-making details documented in ED Course.Radiology: ordered. Decision-making details documented in ED Course.RiskOTC drugs.Prescription drug management.Flowsheet Documentation:Scoring Tools:No data recordedDisposition/Condition:ED DispositionED DispositionDisch - HomeConditionStableComment--Discharge Medications:Patient's MedicationsSTART taking these medicationsKETOROLAC 10 MG TABLET Take 1 tablet by mouth every 6 (six) hours as needed for Pain (scale 7-10).METHOCARBAMOL 750 MG TABLET Take 1 tablet by mouth every 6 (six) hours as needed for Pain (scale 7-10) (MUSCLE SPASM).CONTINUE taking these medications which have NOT CHANGEDAMLODIPINE (NORVASC) 10 MG TABLET Take 1 tablet by mouth daily.BISACODYL 5 MG EC TABLET Take 1 tablet by mouth once daily as needed for Constipation.DICYCLOMINE 20 MG TABLET Take 1 tablet by mouth 4 (four) times daily as needed for Abdominal pain.HYDROCODONE-ACETAMINOPHEN 5-325 MG TABLET Take 1 tablet by mouth every 4 (four) hours as needed for Pain (scale 4-6) for up to 10 doses. Indications: acute painHYOSCYAMINE SULFATE (LEVSIN/SL) 0.[address] 2 tablets under the tongue every 6 (six) hours as needed (Abdominal pain or cramping).LDMDUF-ICEIGHLI-FCFHZCR (CREON) 3,000-9,500- 15,000 UNIT CAPSULE Take 1 capsule by mouth in the morning and 1 capsule at noon and 1 capsule in the evening. Take with meals.LISINOPRIL 10 MG TABLET Take 10 mg by mouth in the morning.METHOCARBAMOL 500 MG TABLET Take 1 tablet by mouth every 6 (six) hours as needed (MUSCLE SPASM).METOCLOPRAMIDE HCL 10 MG TABLET Take 1 tablet by mouth every 6 (six) hours.METOCLOPRAMIDE HCL 10 MG TABLET Take 1 tablet by mouth every 6 (six) hours.OMEPRAZOLE 40 MG CAPSULE Take 1 capsule by mouth in the morning and 1 capsule in the evening.ONDANSETRON (ZOFRAN) 4 MG TABLET Take 1 tablet by mouth every 8 (eight) hours as needed for Nausea and Vomiting (N/V).ONDANSETRON 4 MG DISINTEGRATING TABLET Take 1 tablet by mouth every 8 (eight) hours as needed for Nausea and Vomiting (N/V).ONDANSETRON 4 MG TABLET 1-2 tablets every 8 hours as needed for nauseaPEG-ELECTROLYTE SOLN 236-22.74-6.74 -5.86 GRAM SOLUTION Take as directed before colonoscopyPROMETHAZINE 25 MG TABLET Take 1 tablet by mouth every 6 (six) hours as needed for Nausea and Vomiting (N/V) or N/V unresponsive to Ondansetron.TRAMADOL 50 MG TABLET Take 1 tablet by mouth every 6 (six) hours as needed (pain). Indications: acute painSTART taking Modified Medications as PrescribedNo medications on fileSTOP taking these medicationsNo medications on fileFollow-up:Contact information for follow-upJimmy Brennan MDRelationship: [place] [address]Prxbl: [phone] Graham MDSpecialty: ORT-ORTHOPAEDIC [id number] [facility] [address]Mzixc: [phone] signed by:Abraham Orantes MD12/09/23 2307 24213-0Awprqvizq Emergency department JodrEJ0739-02-69G18:07:32Physician Emergency department NoteTXT1.2.840.440829.1.13.104.2.7.2.72 7879|[id number] for patient lawq43318-6Nhupbzcct department NoteLNNARRATIVEFormatted C-CDA narrative textUT60 Evans StreetJezqSoxjixhcbGibuvnhnkCOMJ2042830082DHF IVFGNEPDFEOPROBGRGY7315-30-65H11:07:321 .2.840.312176.1.72.3.15|1.2.840.964336. 1.13.104.2.7.2.727879_[id number] [facility] 2023-10-06 14:20:14 KGl1CjtYtrxk3ize9LxgUrxCXCnV8FzUZn2oadT RVMNIgTeCIIr6hfqYispjuWHn4857-51-19K41: 20:14 Chief ComplaintPatient presents withNew PatientBlood Pressurethe patientStates he [place] [address]-6Ggiux FqlzWD0046-03-68T83:20:47Nurse NoteTXT1.2.840.414214.1.13.131.2.7.2.72 7879|[id number] for patient lywn33470-2Njuaf NoteLNNARRATIVEFormatted C-CDA narrative textKELJ.W. Ruby [facility] Hospital2727 [facility] SouthMNFASWYDQFABIKIHKR7357331044XHMG55 07-10-224:20:471.2.840.802891.1.72.3. 15|1.2.840.862770.1.13.131.2.7.2.124944 _[id number] Luz Maria-Semc rajwinder [facility] 2023-07-23 07:15:00 B21088324553OjHtATyV9iGiePg7ohJosq6lQq6 065gH5wCcGt/GxejgqcEmueBjEfhZhJVWg+4a20 06-08-09T07:15:00 [facility] ([facility] PROVIDER REPORTREPORT#:[id number] REPORT STATUS: SignedDATE:07/23/23 TIME: 714 PATIENT: NOAH PUTNAM UNIT #: [id number]#: [id number] ROOM/BED:AGE: 52 SEX: M PCP PHYS: DOES_NOT KNOWSERVICE AUTHOR: Tracy Hall MD R1 LOCATION: [facility] * ALL edits or amendments must be [...] showed that the patient was seen in [facility] ED on 07/[address] AP was negative for gallbladder, biliary, pancreatic and GI disease. Patient sees a GI doctor at [facility] and is in the process of getting a c-scope and EGD. Denies chest pain, SOB, hematemesis, melena and hematochezia. GeneralInitial Greet Date/Time 07/23/23521 Provider in TriageHPI Chief Complaint Abdominal pain, [...] deficits Interpretation Diagnostics Lab Results InterpretationResultsLaboratory Tests 07/23/23 0536:[Embedded Image Not Available]Laboratory Tests: 07/23 536 Chemistry [...] # (Auto) (1.0 - 3.8 K/mm3) 2.61 [place] # (Auto) (0.1 - 0.8 K/mm3) 0.68 Eos # (Auto) (0.0 - 0.2 K/mm3) 0.04 Baso # (Auto) (0.0 - 0.2 K/mm3) 0.02 Nucleated RBCs # (Man) (0.0 - 0.1 K/mm3) 0.00 Urines Urine Color (YELLOW) YELLOW Urine Appearance (CLEAR) CLEAR Urine pH (5.0 - 9.0) 6.0 Ur Specific [place] (1.003 - 1.030) 1.025 Urine Protein (NEGATIVE [...] 0750 Report Impression - Status: SIGNED Entered: 07/23/202304 IMPRESSION: 1. No acute abnormality. Impression By: [...] in the ED, and will go see [facility] in [place] after discharge. We will send Norflex, Bentyl, and Toradol to his home pharmacy. Instructed to return to the ED if symptoms worsen. Patient reports understandingand agrees with the treatment plan.Time of Re-Eval 906)( Re-Eval Status Unchanged ED CourseMedication(s) OrderedMedication(s) Ordered:Central [...] Sodium Chloride 1,000 ML X1ED ONE 07/23 0535 DC 07/23 IV 07/23 0635 0550 Gastrointestinal [...] Delivery Room air 07/23 529 Temp 98.7 11/09 0529 Pulse 86 07/23 529 Resp 20 07/23 [...] )( Discharged to Home Yes )( Time 912 )( Date 07/23/23 Discharge/Care PlanCounseled Regarding Diagnosis, [...] PainDeparture FormsWORK/SCHOOL EXCUSE VARIABLEWORK/SCHOOL EXCUSE-CAREGIVER Jessie Paul 07/23/2317:Patient Discharge Departure Discharge/Care PlanReferralsProvider Referral: Karina Nascimento MD Address: [address] [place] [address] Provider Referral: Peter Pérez MD Address: [address] [place] [address] Provider Referral: Adebayo Bagley WHITTLING ROOM OPERATOR Address: [address] [place] [address] Provider Referral: Carola Brooks WHITTLING ROOM OPERATOR Address: [address] [place] [address] Provider Referral: Mary Ibarra MD Address: [address] [place] [address] Provider Referral: Woody Roman WHITTLING ROOM OPERATOR Address: [address] [place] [address]. [address] [place] [address] Supervising Physician Note Resident Saw PtThis patient [...] for patient's abdominal pain. Patient called his histologic technician for which she is going to another hospital but the GI works at to be admitted for further care and evaluation. Discussed no indication for admission at this facility which patient understands and agrees with plan. Patient is discharged home with analgesia antiemetics at 1039 at 1048RPT #:[id number] OF REPORTEDEmergency department mixugg3185-06-30A61:15:00Z.HJZI65642106 -0166AVAvailable for patient iwbzZBZLRCVALCGFLP3226-94-61M09:39:44 [facility] 2023-07-23 05:32:00 [id number]/YvZIX5VwbPF0jvK7uM0D7CWKOR wyo2FcVC7baL7GjAM6T5NRXHgKVDZtCQHGeNA19 06-08-09T05:32:00 [facility] ([facility])EMERGENCY PROVIDER REPORTREPORT#:[id number] REPORT STATUS: SignedDATE:07/23/23 TIME: 531 PATIENT: NOAH PUTNAM UNIT #: [id number]#: [id number] ROOM/BED:AGE: 52 SEX: M PCP PHYS:SERVICE DT: AUTHOR: Rita Ashford LOCATION: [facility] * ALL edits or amendments must be made on the electronic/computer document * Provider in Triage - Adult Provider in TriageInitial Greet Date/Time 07/23/23 0522 Austin Martinez have greeted and performed a focused rapid [...] organs. Free Text PIT NotesFree Text PIT Pecqm81-ptup-vbk male with a past medical history of [...] diseaseAdditional Surgical HistoryLeft wrist surgery at 0533RPT #:[id number] OF REPORTEDEmergency department bgmcbj8350-75-87W27:32:00Z.UWSR02801016 -0063AVAvailable for patient lfdbCTFLNEJRWNZLKY2853-71-46P08:33:39 [facility] 2023-07-01 23:26:00 [id number]JPW pD4bbo+gTyfzz09+WN9htLZXyqXZnWB9fDb2w96 06-07-18T23:26:233139-8883 [place], [place] PATIENT NAME: NOAH PUTNAM ADMIT DATE: 07/01/23ACCOUNT NO: [id number] ROOM NO: AGE: 52 REPORT TYPE: ELECTROCARDIOGRAM SEX: M : 74ADMITTING PHYSICIAN: ATTENDING PHYSICIAN:Jessie Gleason DO Order:[id number] Reason : abdominal pain Test Date/Time Stamp:ThuJul [...] ECGs availableConfirmed by JESSIE GLEASON DO ([id number]), editorial manager MARCIA GALVEZ ([id number]) on07/20/2023 3:03:25 PM Referred By: Self Referred Confirmed by:JESSIE GLEASON DO at 1503 PATIENT NAME: NOAH PUTNAM .SZQ312 [id number] for patient jovlVYBLUKPBDMFRUP3433-89-09E26:04:05 [facility] 2023-07-01 23:22:00 WB8866461368rxLCazwP1XgMcC6mz+G3+et2o+6 4KuAPuNFCzX93yrPM1pAq/QCoHQ0ND95jat0G78 06-07-18T23:22:00 [facility] ([facility] PROVIDER REPORTREPORT#:[id number] REPORT STATUS: SignedDATE:07/01/23 TIME: 2321 PATIENT: NOAH PUTNAM UNIT #: [id number]#: [id number] ROOM/BED:AGE: 52 SEX: M PCP PHYS: Undefined ProviderSERVICE AUTHOR: Jessie Gleason DO * ALL edits or amendments must be made on the electronic/computer document * HPI-Abd Pain M 40 and Over GeneralConfirmed Patient YesPatient Type New patientInitial Greet Date/Time 07/01/232301 PresentationChief Complaint Abdominal painSudden in Onset? No Free Text HPI NotesFree Text HPI Myxfn52-mvtb-mfe male presents with complaint of abdominal pain. [...] Access care [facility] Patient states that [facility] and was discharged with tramadol after [...] 07/01 2256 Pulse 89 07/01 2256 Resp 07/01 Last Documented: Result Date Time Pulse Ox 98 07/01 2256 B/P 140/110 07/01 2256 B/P Mean 120 07/01 2256 O2 Delivery Room air 07/01 2256 Temp 98.1 07/01 2256 Pulse 89 07/01 2256 Resp 07/01 Review of Vital Signs Reviewed Focused PEGeneral/Const [...] % (Auto) (24 - 44 %) 41.1 [place] % (Auto) (0.0 - 4.0 %) 7.4 [...] SCAN - CT ABD PELVIS W/CONT 07/01 8000 Report Impression - Status: SIGNED Entered: 07/02/2023 [...] waves, Normal axis, Normal intervalsRate 88 Re-Evaluation [facility] )( Re-Evaluation/Progress #1Text/Dict NotePatient is reporting [...] 07/01 2322 DC 07/01 IV 07/01 2323 232 Diagnostic Agents Sig/Shirin Start time Last Medication Dose Route Stop Time Status Admin Iopamidol 0 .STK-MED ONE 07/01 2330 DC 07/01 IV 2343 Iopamidol 0 .STK-MED ONE 07/01 2330 DCr 07/01 IV 2344 Iopamidol 0 .STK-MED ONE 07/01 2330 DCr 07/01 IV 2344 Electrolytic, Caloric, And Daryn Sig/Shirin Start time Last Medication Dose Route Stop Time Status Admin Potassium Chloride 40 MEQ X1ED STA 07/02 0018 DC 07/02 PO 07/02 001 0032 Gastrointestinal Drugs Sig/Shirin Start time Last [...] docTobacco Screening/Cessation Denies tobacco use at 0109RPT #:[id number] OF REPORTEDWh[facility] department hooppy3906-16-22I68:22:00D.DMOU22643140 -0941AVAvailable for patient mzdbMHEEKTFNEEYVVL9802-47-26B15:09:42 [facility] 2023-05-20 15:08:22 eV8K0gRVBYZbYHZ9t46MC5RSaBxPpdSoDEssPVD vHquoAu565I88Qr2GHukbrDwO1585-43-01E86: 08:22 Chief Complaint Patient presents with Consult[place] [address]-0Frjnl JvpoEE3980-12-86Q10:10:32Nurse NoteTXT1.2.840.845442.1.13.131.2.7.2.72 7879|[id number] for patient hlfu41320-2Gttmg NoteMARTIN LUTHER KING JR. - HARBOR HOSPITALEPTrinity Health System Twin City Medical Centerbertafarooq Jfppmv1910 [facility] SouthIJVIWEFCHTKTOREIQB7707381849JWPZ20 06-06-065:10:321.2.840.723104.1.72.3. 15|1.2.840.371382.1.13.131.2.7.2.334137 _[id number] Simona purdy [facility] 2023-05-07 23:22:46 MRMLg2c2ymH7Y28vsSZo9JapoCyJyILlJvpZDWW tZnuf6DoTwiqmoJPG2g6OLsEM6331-49-11A40: 22:46 Discharge instructions reviewed with patient. Follow up care discussed. All questions answered by RN. Patient ambulatory to [facility]. Patient in possession of all belongings. RR even and unlabored, VSS, NAD noted. [address]-[address] OmlyQA1098-22-08K23:23:02[facility] NoteTXT1.2.840.782585.1.13.104.2.7.2.72 7879|[id number] for patient qqro91110-4BqtaIQ917841668Xddunh Gay [address] [id number] RLVTJZRVFVJSMIEDNEQ6733-54-54Z28:23:021 .2.840.797175.1.72.3.15|1.2.840.763661. 1.13.104.2.7.2.727879_[id number] Steffanie Easley [facility] 2023-05-07 23:01:52 3dC8NiUnbREn41poCG3MRHqAe6YBYTXp3d6h9DP DxsuC8oYWrLjPnWL4xOI8Ohj85368-66-47P60: 01:52 DC hold for fluid admin. [address]-9Akcfvhtxa[address] KtweDF4104-62-15C67:02:00[facility] NoteTXT1.2.840.864308.1.13.104.2.7.2.72 7879|[id number] for patient kkqo27541-1EkjaVUMRGKYJOE[id number] APAEDGGIIIUHCWLQTKQ4946-61-23F67:02:001 .2.840.700938.1.72.3.15|1.2.840.178199. 1.13.104.2.7.2.727879_[id number] [facility] 2023-05-07 22:51:08 +bdjJYCSTH4F9l3dlRnsHXytvM5+KEvFi4vHdu9 r3z5ckJT3UBtSpTeuvKmHWNJD2119-76-26O28: 51:08 This RN chaperoned DO for rectal exam. 58111-2Jszqaybhv department PfwgMA3036-72-41P79:51:22Emergen department NoteTXT1.2.840.055906.1.13.104.2.7.2.72 7879|[id number] for patient jjug38769-6TwuyFABTZKBZWR[address] TdftHwtrtxcteTiwquihotPFGE7649990899CKP NUESLJPMGDLUGHRILJZ1394-60-07Y74:51:221 .2.840.426466.1.72.3.15|1.2.840.553921. 1.13.104.2.7.2.727879_[id number] [facility] 2023-05-07 20:30:00 /v0XomVAaThu2HG8BnTsvQqKTCjEe8zkwt+e+Oleg zZrcTnGLIpAnaSk5MwbX9gr/Q2250-00-89A16: 30:00 Noah Putnam is a 52 year old [...] Patient reports he was seen at the [facility] a few days ago and treated for [...] RR even and unlabored. VSS. NAD noted. 09076-1Uajcwiwqw department NpbsZH9876-44-67V66:50:18[facility] department NoteTXT1.2.840.581647.1.13.104.2.7.2.72 7879|[id number] for patient iymd20931-5QklzEIBGBUZPNX[address] MdxeWdospdbpnHejlsnrivGWKU8812901451AVD VGBWNYBHIXCRFAYDADM0068-16-10F24:50:181 .2.840.232471.1.72.3.15|1.2.840.700811. 1.13.104.2.7.2.727879_[id number] [facility] 2023-05-07 17:35:38 jBEgrayN8oohIwp0Idbat9CYBcDm+Wvo0DtmXLa z5TONiSrqbcGlBwDO9GoOS9pg4920-54-99V01: 35:38 Noah Putnam is a 52 year old male presenting to ED with c/o abd pain. Patient reports hx of pancreatitis. Patient reports began having blood in stool today. Patient to green chairs due to ED saturation 20941-7Bcaahnsxt department Triage udhrSN4510-76-62Q14:36:16[facility] department Triage noteTXT1.2.840.632236.1.13.104.2.7.2.72 7879|[id number] for patient djmc72968-2Qwpftfomj department XgfdEQ504827247Tautqiue L Osiris RN[id number] ZSOQWQUECESDGKOTCOS1155-39-78Z02:36:161 .2.840.746609.1.72.3.15|1.2.840.302164. 1.13.104.2.7.2.727879_[id number] Helene Rea Osiris RN [facility] 2023-05-02 00:32:03 D92C008debLtaJrcERAgPwdjBeAHybApEixdpJ9 S4cDhhCRvMqZZ73Nz4cwNSLZg7151-22-07Q09: 32:03 DC instructions and prescriptions for protonix and reglan reviewed with patient. He will fill prescriptions and take them as directed. He will follow up with his PCP as directed. He will increase his oral intake of fluids to maintain hydration. He will return to the ED if his symptoms persist or worsen. He was Dc'd ambulatory-alert and in no distress. 79617-7Pypcdaiey department JayqLM0062-29-09I99:34:46[facility] department NoteTXT1.2.840.704950.1.13.104.2.7.2.72 7879|[id number] for patient gkef30903-1AcqoUP514694635Flpqtge M Owens RNUT[address] [id number] UVPUPJNBLLGSPSGNVWB3036-77-02P89:34:461 .2.840.963539.1.72.3.15|1.2.840.292229. 1.13.104.2.7.2.727879_[id number] Marcelo Shonna Quin BARRIGA [facility] 2023-05-01 21:28:00 VV4hLaPxfcJm6SrVUa2b6LlCflnlPYCNeA3C8he dXJ/drDtANAWqZ7tWkv4jKbyu0516-34-40I69: 28:00 Patient states: "I came here last week for dehydration and I think it's the same thing now. I'm drinking fluids and keeping myself hydrated but since 3 days I feel weak, sweating more, and my body is cramping. I also vomited 8x today. I worked all day out in the sun today." 41857-6Wmdouzdnc department Triage uoqmLP3515-49-02G36:38:40[facility] department Triage noteTXT1.2.840.281585.1.13.104.2.7.2.72 7879|[id number] for patient yclk34612-0Rjzadqced department ZqhdSU603847388Asdizfdy C Heredia RN[address] VzlfKqiqlghqqXresmpljnWYAQ3476897110FUE MKPIMVJBUSVFHOIMGAS2885-01-47N26:38:401 .2.840.018407.1.72.3.15|1.2.840.139606. 1.13.104.2.7.2.727879_[id number] Lelo Carbajal RN [facility] 2023-04-22 13:03:22 6+hyaYiwZ+IosBt+5E18XBua8w1qPRHkbeLNpaV IZgSIzAQTpMd8G+5tkbazcn3K4167-51-99Y55: 03:22 Pt given printed and verbal discharge instructions [...] w/d, pt leaving in no apparent distress, 04329-5Kuacwsqrj department SojoHK0512-05-20O73:04:12Emergen department NoteTXT1.2.840.355700.1.13.104.2.7.2.72 7879|[id number] for patient krou50815-4RdpjKQ343623342Jtaox M Crawford RNUT[address] PswbIvlhynxgdQrgmexwsfNCNE2910350029RTS TUXXLMEAKVQYGZVZYZO4221-36-59A49:04:121 .2.840.464460.1.72.3.15|1.2.840.250243. 1.13.104.2.7.2.727879_[id number] Jacki Rodriguez RN [facility] 2023-04-22 10:35:21 KNAV2MCnlDvWbR2GyjJXSmvI5hJaK38c0BLQ471 aDRygyop2Aoy+l8RAVP+4yLkZ3889-19-09X63: 35:21 Patient ate some potatoes from meal tray, states stomach began to cramp. Patient provided juice, states that his boss is going to being him some food that he will also try but states stomach is cramping. 54677-6Byqndimnf department EljqYW0307-80-24M19:36:25[facility] NoteTXT1.2.840.648390.1.13.104.2.7.2.72 7879|[id number] for patient dppo47793-4QdtkAP098202586Zakwtfbp M Rivera RN[id number] YWBIOJIYOXCTCKIPZAD0282-97-76C71:36:251 .2.840.529613.1.72.3.15|1.2.840.152571. 1.13.104.2.7.2.727879_[id number] Caty Pang RN [facility] 2023-04-22 10:28:09 JlSH6+BxmKjJx5ubloQdBl9XIXNp/Eg6DkUoL26 1RAS1+IZYgZFAiBLHH3LJKsoF9487-58-38E28: 28:09 Patient provided meal tray. 58677-3Rrrcdmpxt department UcihZV1907-90-92N80:28:20[facility] NoteTXT1.2.840.645421.1.13.104.2.7.2.72 7879|[id number] for patient fwpw05067-0FlacAEJQOEBAPE[address] [id number] SLCHDAILZZZDDAIXNAZ9532-40-50W88:28:201 .2.840.723722.1.72.3.15|1.2.840.861089. 1.13.104.2.7.2.727879_[id number] [facility] 2023-04-22 10:18:30 sUMAcQD8/5PaqQNJWbCfEXMMsrRQXy1wzcXc8Z1 gy5+McVnzecqzNOtpK5FdI7fW1407-52-70Z11: 18:30 Patient encouraged to eat, advised of plan of care. 33887-9Vcrkxjnco department EitlQX1504-84-97K89:19:08[facility] department NoteTXT1.2.840.889845.1.13.104.2.7.2.72 7879|[id number] for patient utms13620-3QnggGBWPYTAJGP[address] PbeyUtwnfvixtLmrhihbatIZNZ8778322906SAA LUKBRTVEANAUAAKWEXH4973-78-75B29:19:081 .2.840.670984.1.72.3.15|1.2.840.312556. 1.13.104.2.7.2.727879_[id number] [facility] 2023-04-22 06:30:24 MNIfK6TFopOAkes6eL2DLa8MOrgEsB88pT7piKW XOV9M2wFsmdV+0s31a41E3FUD7351-92-75Y44: 30:24 Second liter of fluids completed, pt states he is still unable to urinate, RN gave pt a urinal and encouraged pt to try, pt stated that he will but he does not feel like going yet. 64724-6Jclbvhflr department TjucAP8243-44-62T32:38:32[facility] department NoteTXT1.2.840.000653.1.13.104.2.7.2.72 7879|[id number] for patient uyov01839-1GonsYK730667110Qvbqaa L Williams RN[address]TXTX7755577555USU GGMBDDXQCWHNNATSGSD4446-72-79S93:38:321 .2.840.824048.1.72.3.15|1.2.840.789594. 1.13.104.2.7.2.727879_[id number] Carol Siddiqui RN [facility] 2023-04-22 05:20:00 Jb9eMM4o8XY3lh/NfCse/m2RBBtjsMhVx52OTHx dG76eButUIR7Q/H0pyAgYtVjo4092-62-53O88: 20:00 Pt walked to the bathroom, cannot void. Provider informed, orders received 72386-4Xjhlwfwsk department LnmpJF8072-85-73U21:54:56[facility] NoteTXT1.2.840.988788.1.13.104.2.7.2.72 7879|[id number] for patient ouvj70051-0WkpoQESDEGRAGD[address]TXTX7755577555USU ZQLUOXKLDXQEVRDVIZO3412-54-55Q79:54:561 .2.840.442415.1.72.3.15|1.2.840.604776. 1.13.104.2.7.2.727879_[id number] [facility] 2023-04-22 03:56:00 mYSqPqn9REnH7uHkwqaOZPa4+c2sNb3Lu2Dl5uW TzGbK0oc3h4D4DUK7exGce1GL8908-10-78V66: 56:00 CC: Pt states he was working in [...] ext without difficulty, amb with steady gait 19513-3Ssejppzoy department Triage nwkuFG8376-36-56G16:58:39[facility] Triage noteTXT1.2.840.803568.1.13.104.2.7.2.72 7879|1360604091OBAcpicatia for patient fdpu06542-9Wvnazvsxi department PtqsZS947194638Oiuqil R Shehadeh RNUT[address] FutkZixknouisAqepxlqgiLPEI2489875269TZT CYIPFIKYBVHZUCGKNYC9690-68-30K67:58:391 .2.840.639743.1.72.3.15|1.2.840.340901. 1.13.104.2.7.2.727879_[id number] Carol Wu RN [facility] 2023-04-22 03:50:00 caabOZ8X7F9jotfqdNZbb8VJms1aj7B7A6JRfyt //vuebTPT5rjravufDod8rUye9476-16-96S89: 50:00 Patient Care assumed at shift change. Off-going Physician: YohanarmiaTime of Transfer of Care: 7:46 AMSummary: Noah [...] 15 mL (15 mL Oral Given 04/22/23 0755) NaCl 0.9% (NS) bolus infusion 500 mL (500 mL IV Infusion New Bag 04/22/23 0944) haloperidol lactate (HALDOL) injection 2.5 mg (2.5 [...] components within normal limits COMP. METABOLIC PANEL (77377) - Abnormal; Notable for the following components: [...] Additional Notes:ED Course as of 04/22/23 1239 Wed Apr 22, [address] [...] unspecified pancreatitis type Natali Alexander DO04/22/23 1238 73686-4Mgqfytiyn Emergency department XmmlRA7010-91-62O76:38:07[facility]ian Emergency department NoteTXT1.2.840.075993.1.13.104.2.7.2.72 7879|[id number] for patient azgu28139-3Rgtmdpkhe department Note[address] WfdnOnvlakausGeqikpykzWGPX8977826427LKI YVIMYHRZQCVBRLAXDZS4229-42-48O51:38:071 .2.840.773363.1.72.3.15|1.2.840.102007. 1.13.104.2.7.2.727879_[id number] [facility] 2023-04-16 08:49:36 twgE+/OdUFOUKtBBdTTu5DGTYlAWcqjBkvZZpoY wXelZgy/l+63hfi2mYKES0v+84818-50-14J08: 49:36 Pt requesting more medication, provider informed. Attempted [...] not discharge papers complaining about the service. 02414-2Olwkaqsyz department PsvsEI5552-89-38J02:54:17[facility] NoteTXT1.2.840.243446.1.13.104.2.7.2.72 7879|[id number] for patient ctup15163-9BysjPU171326742Eyql H Wark [address]TXTX7755577555USU TEXTHGMQPQGTTNYBORM5014-84-31W37:54:171 .2.840.918250.1.72.3.15|1.2.840.542145. 1.13.104.2.7.2.727879_[id number] Rachana Pratt RN [facility] 2023-04-16 08:17:00 fyMkrKkK6w+1MmZj+DYnp5NdwPbksBJH9HuKjXn Hq85rReRP3D1SiCCUOZDRTIx98577-58-00G39: 17:00 This RN and Provider at bedside. Provider explaining to pt that some of his pain could be due to being constipated, images showed pt is constipated. [address]706-8Jmfhcvg[address] UpbaIS1050-30-56K66:57:40[facility] NoteTXT1.2.840.331043.1.13.104.2.7.2.72 7879|[id number] for patient jorb67470-8BeeuNDHKYVJMHP[id number] JGCGDQHEOOJJORJPRZC1085-22-05H70:57:401 .2.840.709221.1.72.3.15|1.2.840.816291. 1.13.104.2.7.2.727879_[id number] [facility] 2023-04-16 07:56:11 1VEVQWTWYDeIdUqeeXp5OVkzZxke2OUoo7SQ/nI AhZGo0+qnBvdOmqFRekriHs1Y3659-39-04Q14: 56:11 Pt returns from X-ray, NAD noted, family remains at bedside. 93261-9Tqcdsaido department MbfdHH6179-95-85D38:56:33[facility] NoteTXT1.2.840.153931.1.13.104.2.7.2.72 7879|[id number] for patient skkb69314-8ExqcUNHAYPNKTZ[address] GtpsZcfwfwbqkOrlkxqrgwPPMP8691764622DBJ KZBBBMLONKMDMPHBOPA8770-48-94E00:56:331 .2.840.135528.1.72.3.15|1.2.840.163908. 1.13.104.2.7.2.727879_[id number] [facility] 2023-04-16 07:41:37 frHRGN/0CzvFKd85Wfggq4iF1x0k4E3V5JTg/H+ bkgKSM41wP3B+lKYPb+hSRone8530-14-65T59: 41:37 Pt transported to X-ray via [facility] transport. 99564-6Uikewcpls department YwkzNK9706-63-27U16:42:02[facility] NoteTXT1.2.840.526144.1.13.104.2.7.2.72 7879|[id number] for patient gawx66398-8DjivQOXKCXBCDP[address] Lf[id number] RCUJSEOTIAERNIDVCUQ5246-48-31S45:42:021 .2.840.163106.1.72.3.15|1.2.840.600929. 1.13.104.2.7.2.727879_[id number] [facility] 2023-04-16 07:20:37 CLAPVw+5L9Uu8mS8xlwufmUykUlwJrJkl7g33j1 9f1X0sT5N/Rx9AM8pbF3PpyHY6143-37-96V61: 20:37 Noah Putnam is a 52 year old [...] bedside. Provider and this RN at bedside. 84731-0Ogynisiga department XnsxRX9654-60-89V59:44:34[facility] NoteTXT1.2.840.969180.1.13.104.2.7.2.72 7879|[id number] for patient kaoz59655-1HddlWEPNIGTZXH[id number] BRXWLAKNZJDIYUYBETM0698-50-85F33:44:341 .2.840.778463.1.72.3.15|1.2.840.517554. 1.13.104.2.7.2.727879_[id number] [facility] 2023-04-16 07:08:22 ZW6VIJp1SbtzYkFcVkEni1OKn74TUdKDDlCW+Gj 1rU8sea4Z7P3QQ99bXqfcD0VA0332-33-08Y82: 08:22 Noah Putnam is a 52 year old male presenting to ED with c/o abd pain. Patient reports pain for a few weeks. Patient reports was recently seen and diagnosed with pancreatitis. Patient endorses pain to abd and radiates to back. Patient to room for further eval 22705-5Hcmyfbfxe department Triage lltvGN4803-99-30A72:09:02[facility] Triage noteTXT1.2.840.713478.1.13.104.2.7.2.72 7879|[id number] for patient vaia04038-7Ztjxsyspn department [id number] L Holmes RN[id number] QSTSMHCGWTYPSIKLRII0914-46-50R65:09:021 .2.840.401526.1.72.3.15|1.2.840.235084. 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 METABOLIC PANEL (60900) - Abnormal NA 142 135 - 145 [...] VW CBC WITH DIFF COMP. METABOLIC PANEL (74750) LIPASE TROPONIN I Orders Placed This Encounter Medications NaCl 0.9% (NS) bolus infusion 1,000 mL ketorolac (TORADOL) injection 30 mg dicyclomine (BENTYL) injection 20 mg famotidine (PEPCID (PF)) injection 20 mg lactulose (CEPHULAC) solution 45 mL fninzp-xccujubq-tqhrhkx (CREON) 12,000-38,000 -60,000 unit capsule 2 capsule enalaprilat (VASOTEC I.V.) injection 1.25 mg utfujc-flozakiw-klhwwnc (CREON) 3,000-9,500- 15,000 unit capsule hyoscyamine sulfate (LEVSIN/SL) 0.125 mg sublingual tablet famotidine (PEPCID) 20 mg tablet bisacodyL 5 mg EC tablet First Provider Eval:ED Events Date/Time Event User Comments 04/16/23 07 Medical Screening Begins BLOSSOM CANALES -- 04/16/23 07 First Provider Evaluation BLOSSOM CANALES -- No [...] hours as needed (Abdominal pain or cramping). PMTKHW-WCQWTEMG-FGSKJRB (CREON) 3,000-9,500- 15,000 UNIT CAPSULE Take 1 [...] Follow-up:Electronically signed by: Adelaide Goodwin MD04/16/23 0850 [id number] Emergency department TwamRV7415-15-43M36:50:55Physician Emergency department [id number] for patient szhj24303-5Bblflqklo department NoteLN[address] Dx[id number] THSESARXLYBPIHWOQTN8913-89-16U79:50:551 .2.840.825650.1.72.3.15|1.2.840.121267. [id number] [facility] 2023-04-01 03:22:04 bw5xoUJC5M/jXuryiTj8ZbXu9PZMrsUSHlWAGYy +4SUBqZwjxA3YK4jUDY9/2Isd1678-23-63G74: 22:04 Pt given printed and verbal discharge instructions [...] with steady gait, in no apparent distress. 16476-8Mgvixclau department EvrcLP2635-41-79H07:24:21[facility] [id number] [id number] for patient [id number] CHARLES[id number] BYHPJIHQXPOTCRBJEXR3489-82-66N01:24:211 .2.840.058194.1.72.3.15|1.2.840.023765. [id number] Lelo Freeman Carbajal LINUS [facility] 2023-04-01 00:02:06 3sxO8C54OC+8AWA5N+jNJLGFfuofU1nZLr6BzMp yQnfVf7of4tzwrDBvU1SQdkky4240-30-68X85: 02:06 History of chronic pancreatitis. Mid upper abdominal pain for 4 days. Complaining of oily stool. Vomited x2. 26543-0Ipksljauf department Triage wvqiBJ7546-02-54O13:02:52Emergency department Triage [id number] 7879|[id number] for patient [id number] Nolen RNUT[id number] IYAWWVOYCCLLWIDFZND3036-64-78Z80:02:521 .2.840.511332.1.72.3.15|1.2.840.438354. [id number] Anuradha Nolen RN [facility]
[2024-02-08] MEDS ORDERED: methocarbamoL 500 MG TAB ONE (23:48)
[2024-02-08] MEDS ORDERED: ACETAMINOPHEN 500 MG TAB ONE (23:48)
[2024-02-08] MEDS ORDERED: IBUPROFEN 400 MG TAB ONE (23:48)
--- NOTE | 2024-02-09 01:47 | ER ---
Nurse's Notes [facility] Name: Noah Putnam Age: 53 yrs Sex: Male : 1970 Arrival Date: 02/08/2024 Time: 23:06 Bed 12 Private MD: Anselmo Genao Diagnosis: Sprain of shoulder joint Presentation: 02/07 23:30 Chief complaint: Patient states: GOT HIS RIGHT ARM TWISTED BY A MACHINE AT WORK. NOW jj7 HAVING PAIN IN HIS HAND AND ARM. Coronavirus screen: At this time, the client does not indicate any symptoms associated with coronavirus-19. Ebola Screen: No symptoms or risks identified at this time. Initial Sepsis Screen: Does the patient meet any 2 criteria? No. Patient's initial sepsis screen is negative. Does the patient have a suspected source of infection? No. Patient's initial sepsis screen is negative. Risk Assessment: Do you want to hurt yourself or someone else? Patient reports no desire to harm self or others. Onset of symptoms was February 08, 2024. 23:30 Method Of Arrival: Ambulatory [facility] 23:30 Acuity: BREEZY 4 jj7 Triage Assessment: 23:33 General: Appears in no apparent distress. comfortable, Behavior is calm, cooperative, jj7 appropriate for age. Pain: Complains of pain in right arm. Musculoskeletal: Reports pain in right arm. Injury Description: TWISTED BY A MACHINE AT WORK. Historical: - Allergies: 23:33 Bee Venom; jj7 - PMHx: 23:33 chronic kidney disease; Chronic Pancreatitis; Herniated disc; Hypertension; jj7 - PSHx: 23:33 left arm surgery; jj7 - Immunization history:: Adult Immunizations up to date, Client reports receiving the 2nd dose of the Covid vaccine, Flu vaccine is up to date. - Infectious Disease History:: Denies. - Social history:: Smoking status: Patient denies any tobacco usage or history of. Patient/guardian denies using alcohol, street drugs, IV drugs. Screenin:35 [facility] ED Fall Risk Assessment (Adult) History of falling in the last 3 months, jj7 including since admission No falls in past 3 months (0 pts) Confusion or Disorientation No (0 pts) Intoxicated or Sedated No (0 pts) Impaired Gait No (0 pts) Mobility Assist Device Used No (0 pt) Altered Elimination No (0 pt) Score/Fall Risk Level 0 - 2 = Low Risk Oriented to surroundings, Maintained a safe environment, Educated pt \T\ family on fall prevention, incl call for assistance when getting out of bed. Abuse screen: Denies threats or abuse. Nutritional screening: No deficits noted. Tuberculosis screening: No symptoms or risk factors identified. Assessment: 02/08 02:19 Reassessment: Patient appears in no apparent distress at this time. Patient and/or jb4 family updated on plan of care and expected duration. Pain level reassessed. Patient is alert, oriented x 3, equal unlabored respirations, skin warm/dry/pink. Patient states feeling better. Vital Signs: 02/07 23:30 BP 146 / 100; Pulse 85; Resp 17; Temp 97.1; Pulse Ox 97% ; Weight 113.4 kg; Height 6 jj7 ft. 5 in. ; Pain 10/10; 23:30 Body Mass Index 29.65 (113.40 kg, 195.58 cm) 7 23:30 Pain Scale: Adult j7 ED Course: 23:12 Patient arrived in ED. gm2 23:12 Anselmo Genao DO is Private Physician. gm2 23:20 Aram Bianchi MD is Attending Physician. ec2 23:33 Triage completed. j7 23:33 Arm band placed on left wrist. j7 02/08 01:04 Shoulder Right (2 View) XRAY In Process Unspecified. EDMS 01:04 Humerus Right XRAY In Process Unspecified. EDMS 01:04 Elbow Right 3 View XRAY In Process Unspecified. EDMS 01:05 Forearm Right XRAY In Process Unspecified. EDMS 01:05 Hand Right 3 View XRAY In Process Unspecified. EDMS 02:19 Patient has correct armband on for positive identification. Bed in low position. Call jb4 light in reach. Side rails up X 1. Provided Education on: discharge instruction. 02:19 No provider procedures requiring assistance completed. Patient did not have IV access jb4 during this emergency room visit. Administered Medications: 02/07 23:56 Drug: Methocarbamol PO 500 mg PO once Route: PO; jj7 23:56 Not Given (Patient Refused): otuvylrnqiily1847 mg PO once jj7 23:56 Drug: Ibuprofen PO 800 mg PO once Route: PO; jj7 Medication: 23:35 VIS not applicable for this client. jj7 Outcome: 02/08 01:46 Discharge ordered by . ec2 02:19 Discharged to home ambulatory, jb4 02:19 Condition: stable 02:19 Discharge instructions given to patient, Instructed on discharge instructions, follow up and referral plans. medication usage, Demonstrated understanding of instructions, follow-up care, medications, Prescriptions given X 1, 02:20 Patient left the ED. jb4 Signatures: Dispatcher [employer] EDPeter Berry RN RN jb4 Godwin Ibarra RN RN jj7 Aram Bianchi MD MD ec2 Rafia Smith 2 Corrections: (The following items were deleted from the chart) 02:20 02:19 Discharged to home ambulatory, jb4 jb4 02:20 02:19 Discharge instructions given to patient, Instructed on discharge instructions, jb4 follow up and referral plans. Demonstrated understanding of instructions, follow-up care, jb4
--- NOTE | 2024-02-09 01:47 | EDPHYS ---
Physician Documentation [facility] Name: Noah Putnam Age: 53 yrs Sex: Male : 1970 Arrival Date: 02/08/2024 Time: 23:06 Bed 12 Private MD: Anselmo Genao ED Physician Aram Bianchi HPI: 02/07 23:38 This 53 yrs old Black Male presents to ER via Ambulatory with complaints of Arm Injury. ec2 23:38 Patient arrives today for evaluation of her right upper extremity injury. States that ec2 he injured himself while at work. Patient reports he is having pain radiating from the right shoulder into the hand. . Historical: - Allergies: 23:33 Bee Venom; jj7 - PMHx: 23:33 chronic kidney disease; Chronic Pancreatitis; Herniated disc; Hypertension; jj7 - PSHx: 23:33 left arm surgery; jj7 - Immunization history:: Adult Immunizations up to date, Client reports receiving the 2nd dose of the Covid vaccine, Flu vaccine is up to date. - Infectious Disease History:: Denies. - Social history:: Smoking status: Patient denies any tobacco usage or history of. Patient/guardian denies using alcohol, street drugs, IV drugs. ROS: 23:38 Constitutional: as per hpi ec2 Exam: 23:38 Constitutional: GEN: NAD Head: atraumatic Eyes: EOMI Ears: External ears are ec2 normal. CV: regular rate LUNGS: no respiratory distress ABD: non-distended SKIN: no evidence of rashes MSK: Right upper extremity with tenderness palpation from the shoulder down to the hand, no obvious deformity, intact neurovascular status. NEURO: moves all extremities equally Vital Signs: 23:30 BP 146 / 100; Pulse 85; Resp 17; Temp 97.1; Pulse Ox 97% ; Weight 113.4 kg; Height 6 jj7 ft. 5 in. ; Pain 10/10; 23:30 Body Mass Index 29.65 (113.40 kg, 195.58 cm) jj7 23:30 Pain Scale: Adult jj7 MDM: 23:22 Patient medically screened. ec2 23:38 Data reviewed: vital signs. ED course: Patient arrives today for evaluation of right ec2 upper extremity injury. Examination remarkable for MSK findings as above. Will obtain radiographs, place patient in a sling and treat the patient with Robaxin, Toradol and Tylenol. Differential diagnose include shoulder sprain, cervical radiculopathy, muscular sprain.. 02/08 01:44 ED course: Right shoulder, humerus, elbow, forearm and right hand x-rays independently ec2 reviewed and interpreted by me, show no evidence of bony fracture. Will discharge home, suspect sprain. Return precautions given.. 02/07 23:37 Order name: Shoulder Right (2 View) XRAY ec2 02/07 23:37 Order name: Humerus Right XRAY ec2 02/07 23:37 Order name: Elbow Right 3 View XRAY ec2 02/07 23:37 Order name: Forearm Right XRAY ec2 02/07 23:37 Order name: Hand Right 3 View XRAY ec2 02/07 23:38 Order name: Sling; Complete Time: 23:59 ec2 Administered Medications: 02/07 23:56 Drug: Methocarbamol PO 500 mg PO once Route: PO; jj7 23:56 Not Given (Patient Refused): shquvuxdxejpk4328 mg PO once jj7 23:56 Drug: Ibuprofen PO 800 mg PO once Route: PO; jj7 Disposition Summary: 02/09/24 01:46 Discharge Ordered Notes: Location: Home ec2 Condition: Stable ec2 Diagnosis - Sprain of shoulder joint ec2 Followup: ec2 - With: Private Physician - When: - Reason: Recheck today's complaints Discharge Instructions: - Discharge Summary Sheet ec2 - Shoulder Sprain ec2 Forms: - Medication Reconciliation Form ec2 - Antibiotic Education ec2 - Prescription Opioid Use ec2 - Patient Portal Instructions ec2 - Leadership Thank You Letter ec2 Prescriptions: - methocarbamol 500 mg Oral tablet - take 2 tablets ORAL route 4 times per day; 30 tablet; Refills: 0, Product ec2 Selection Permitted Signatures: Dispatcher [employer] Godwin Jackson RN RN jj7 Aram Bianchi MD MD ec2 Corrections: (The following items were deleted from the chart) 23:37 23:37 Humerus Right+RAD.RAD.BRZ ordered. EDMS EDMS 23:38 23:38 Elbow Right 3 View+RAD.RAD.BRZ ordered. EDMS EDMS 23:38 23:38 Forearm Right+RAD.RAD.BRZ ordered. EDMS EDMS 23:38 23:38 Hand Right 3 View+RAD.RAD.BRZ ordered. EDMS EDMS
[2024-02-09 03:14] VITALS: BP 146/100; TEMP 97.1; O2SAT 97
--- NOTE | 2024-02-09 13:50 | RAD REPORT ---
EXAM DESCRIPTION: RAD - Hand Right 3 View - 02/09/2024 1:03 am CLINICAL HISTORY: PAIN TECHNIQUE: Two views of the right shoulder. COMPARISON: No relevant prior studies available. FINDINGS: Bones/joints: Unremarkable. No acute fracture. No dislocation. Soft tissues: Unremarkable. * A single impression for all exams can be found at the end of this report EXAM DESCRIPTION: XR Right Humerus, 2 Views CLINICAL HISTORY: PAIN TECHNIQUE: Frontal and lateral views of the right humerus. COMPARISON: No relevant prior studies available. FINDINGS: Bones/joints: Unremarkable. No acute fracture. No dislocation. Soft tissues: Unremarkable. * A single impression for all exams can be found at the end of this report EXAM DESCRIPTION: XR Right Elbow Complete, 3 Views CLINICAL HISTORY: PAIN TECHNIQUE: Frontal, lateral and oblique views of the right elbow. COMPARISON: No relevant prior studies available. FINDINGS: Bones/joints: Unremarkable. No acute fracture. No dislocation. Soft tissues: Unremarkable. * A single impression for all exams can be found at the end of this report EXAM DESCRIPTION: XR Right Forearm, 2 Views CLINICAL HISTORY: PAIN TECHNIQUE: Frontal and lateral views of the right forearm. COMPARISON: No relevant prior studies available. FINDINGS: Bones/joints: Unremarkable. No acute fracture. No dislocation. Soft tissues: Unremarkable. * A single impression for all exams can be found at the end of this report EXAM DESCRIPTION: XR Right Hand Complete, 3 Views CLINICAL HISTORY: PAIN TECHNIQUE: Frontal, lateral and oblique views of the right hand. COMPARISON: No relevant prior studies available. FINDINGS: Bones/joints: Unremarkable. No acute fracture. No dislocation. Soft tissues: Unremarkable. No radiopaque foreign body. * A single impression for all exams can be found at the end of this report IMPRESSION: XR Right Shoulder Complete, 2 Views: No acute injury. XR Right Humerus, 2 Views: No acute injury. XR Right Elbow Complete, 3 Views: No acute injury. XR Right Forearm, 2 Views: No acute injury. XR Right Hand Complete, 3 Views: No acute injury. Electronically signed by: Monroe Barrett MD 02/09/2024 01:31 AM CDT RP Due to temporary technical issues with the PACS/Fluency reporting system, reports are being signed by the in house radiologists without review as a courtesy to insure prompt reporting. The interpreting radiologist is fully responsible for the content of the report
--- NOTE | 2024-02-09 14:25 | RAD REPORT ---
EXAM DESCRIPTION: RAD - Elbow Right 3 View - 02/09/2024 1:02 am CLINICAL HISTORY: PAIN TECHNIQUE: Two views of the right shoulder. COMPARISON: No relevant prior studies available. FINDINGS: Bones/joints: Unremarkable. No acute fracture. No dislocation. Soft tissues: Unremarkable. * A single impression for all exams can be found at the end of this report EXAM DESCRIPTION: XR Right Humerus, 2 Views CLINICAL HISTORY: PAIN TECHNIQUE: Frontal and lateral views of the right humerus. COMPARISON: No relevant prior studies available. FINDINGS: Bones/joints: Unremarkable. No acute fracture. No dislocation. Soft tissues: Unremarkable. * A single impression for all exams can be found at the end of this report EXAM DESCRIPTION: XR Right Elbow Complete, 3 Views CLINICAL HISTORY: PAIN TECHNIQUE: Frontal, lateral and oblique views of the right elbow. COMPARISON: No relevant prior studies available. FINDINGS: Bones/joints: Unremarkable. No acute fracture. No dislocation. Soft tissues: Unremarkable. * A single impression for all exams can be found at the end of this report EXAM DESCRIPTION: XR Right Forearm, 2 Views CLINICAL HISTORY: PAIN TECHNIQUE: Frontal and lateral views of the right forearm. COMPARISON: No relevant prior studies available. FINDINGS: Bones/joints: Unremarkable. No acute fracture. No dislocation. Soft tissues: Unremarkable. * A single impression for all exams can be found at the end of this report EXAM DESCRIPTION: XR Right Hand Complete, 3 Views CLINICAL HISTORY: PAIN TECHNIQUE: Frontal, lateral and oblique views of the right hand. COMPARISON: No relevant prior studies available. FINDINGS: Bones/joints: Unremarkable. No acute fracture. No dislocation. Soft tissues: Unremarkable. No radiopaque foreign body. * A single impression for all exams can be found at the end of this report IMPRESSION: XR Right Shoulder Complete, 2 Views: No acute injury. XR Right Humerus, 2 Views: No acute injury. XR Right Elbow Complete, 3 Views: No acute injury. XR Right Forearm, 2 Views: No acute injury. XR Right Hand Complete, 3 Views: No acute injury. Electronically signed by: Monroe Barrett MD 02/09/2024 01:31 AM CDT RP Due to temporary technical issues with the PACS/Fluency reporting system, reports are being signed by the in house radiologists without review as a courtesy to insure prompt reporting. The interpreting radiologist is fully responsible for the content of the report
--- NOTE | 2024-02-09 14:37 | RAD REPORT ---
EXAM DESCRIPTION: RAD - Forearm Right - 02/09/2024 1:02 am XR Right Shoulder Complete, 2 Views CLINICAL HISTORY: PAIN TECHNIQUE: Two views of the right shoulder. COMPARISON: No relevant prior studies available. FINDINGS: Bones/joints: Unremarkable. No acute fracture. No dislocation. Soft tissues: Unremarkable. * A single impression for all exams can be found at the end of this report EXAM DESCRIPTION: XR Right Humerus, 2 Views CLINICAL HISTORY: PAIN TECHNIQUE: Frontal and lateral views of the right humerus. COMPARISON: No relevant prior studies available. FINDINGS: Bones/joints: Unremarkable. No acute fracture. No dislocation. Soft tissues: Unremarkable. * A single impression for all exams can be found at the end of this report EXAM DESCRIPTION: XR Right Elbow Complete, 3 Views CLINICAL HISTORY: PAIN TECHNIQUE: Frontal, lateral and oblique views of the right elbow. COMPARISON: No relevant prior studies available. FINDINGS: Bones/joints: Unremarkable. No acute fracture. No dislocation. Soft tissues: Unremarkable. * A single impression for all exams can be found at the end of this report EXAM DESCRIPTION: XR Right Forearm, 2 Views CLINICAL HISTORY: PAIN TECHNIQUE: Frontal and lateral views of the right forearm. COMPARISON: No relevant prior studies available. FINDINGS: Bones/joints: Unremarkable. No acute fracture. No dislocation. Soft tissues: Unremarkable. * A single impression for all exams can be found at the end of this report EXAM DESCRIPTION: XR Right Hand Complete, 3 Views CLINICAL HISTORY: PAIN TECHNIQUE: Frontal, lateral and oblique views of the right hand. COMPARISON: No relevant prior studies available. FINDINGS: Bones/joints: Unremarkable. No acute fracture. No dislocation. Soft tissues: Unremarkable. No radiopaque foreign body. * A single impression for all exams can be found at the end of this report IMPRESSION: XR Right Shoulder Complete, 2 Views: No acute injury. XR Right Humerus, 2 Views: No acute injury. XR Right Elbow Complete, 3 Views: No acute injury. XR Right Forearm, 2 Views: No acute injury. XR Right Hand Complete, 3 Views: No acute injury. Electronically signed by: Monroe Barrett MD 02/09/2024 01:31 AM CDT RP Due to temporary technical issues with the PACS/Fluency reporting system, reports are being signed by the in house radiologists without review as a courtesy to insure prompt reporting. The interpreting radiologist is fully responsible for the content of the report
--- NOTE | 2024-02-09 14:39 | RAD REPORT ---
EXAM DESCRIPTION: RAD - Shoulder Right 2 View - 02/09/2024 1:02 am XR Right Shoulder Complete, 2 Views CLINICAL HISTORY: PAIN TECHNIQUE: Two views of the right shoulder. COMPARISON: No relevant prior studies available. FINDINGS: Bones/joints: Unremarkable. No acute fracture. No dislocation. Soft tissues: Unremarkable. * A single impression for all exams can be found at the end of this report EXAM DESCRIPTION: XR Right Humerus, 2 Views CLINICAL HISTORY: PAIN TECHNIQUE: Frontal and lateral views of the right humerus. COMPARISON: No relevant prior studies available. FINDINGS: Bones/joints: Unremarkable. No acute fracture. No dislocation. Soft tissues: Unremarkable. * A single impression for all exams can be found at the end of this report EXAM DESCRIPTION: XR Right Elbow Complete, 3 Views CLINICAL HISTORY: PAIN TECHNIQUE: Frontal, lateral and oblique views of the right elbow. COMPARISON: No relevant prior studies available. FINDINGS: Bones/joints: Unremarkable. No acute fracture. No dislocation. Soft tissues: Unremarkable. * A single impression for all exams can be found at the end of this report EXAM DESCRIPTION: XR Right Forearm, 2 Views CLINICAL HISTORY: PAIN TECHNIQUE: Frontal and lateral views of the right forearm. COMPARISON: No relevant prior studies available. FINDINGS: Bones/joints: Unremarkable. No acute fracture. No dislocation. Soft tissues: Unremarkable. * A single impression for all exams can be found at the end of this report EXAM DESCRIPTION: XR Right Hand Complete, 3 Views CLINICAL HISTORY: PAIN TECHNIQUE: Frontal, lateral and oblique views of the right hand. COMPARISON: No relevant prior studies available. FINDINGS: Bones/joints: Unremarkable. No acute fracture. No dislocation. Soft tissues: Unremarkable. No radiopaque foreign body. * A single impression for all exams can be found at the end of this report IMPRESSION: XR Right Shoulder Complete, 2 Views: No acute injury. XR Right Humerus, 2 Views: No acute injury. XR Right Elbow Complete, 3 Views: No acute injury. XR Right Forearm, 2 Views: No acute injury. XR Right Hand Complete, 3 Views: No acute injury. Electronically signed by: Monroe Barrett MD 02/09/2024 01:31 AM CDT RP Due to temporary technical issues with the PACS/Fluency reporting system, reports are being signed by the in house radiologists without review as a courtesy to insure prompt reporting. The interpreting radiologist is fully responsible for the content of the report
--- NOTE | 2024-02-09 15:05 | RAD REPORT ---
EXAM DESCRIPTION: RAD - Humerus Right - 02/09/2024 1:02 am XR Right Shoulder Complete, 2 Views CLINICAL HISTORY: PAIN TECHNIQUE: Two views of the right shoulder. COMPARISON: No relevant prior studies available. FINDINGS: Bones/joints: Unremarkable. No acute fracture. No dislocation. Soft tissues: Unremarkable. * A single impression for all exams can be found at the end of this report EXAM DESCRIPTION: XR Right Humerus, 2 Views CLINICAL HISTORY: PAIN TECHNIQUE: Frontal and lateral views of the right humerus. COMPARISON: No relevant prior studies available. FINDINGS: Bones/joints: Unremarkable. No acute fracture. No dislocation. Soft tissues: Unremarkable. * A single impression for all exams can be found at the end of this report EXAM DESCRIPTION: XR Right Elbow Complete, 3 Views CLINICAL HISTORY: PAIN TECHNIQUE: Frontal, lateral and oblique views of the right elbow. COMPARISON: No relevant prior studies available. FINDINGS: Bones/joints: Unremarkable. No acute fracture. No dislocation. Soft tissues: Unremarkable. * A single impression for all exams can be found at the end of this report EXAM DESCRIPTION: XR Right Forearm, 2 Views CLINICAL HISTORY: PAIN TECHNIQUE: Frontal and lateral views of the right forearm. COMPARISON: No relevant prior studies available. FINDINGS: Bones/joints: Unremarkable. No acute fracture. No dislocation. Soft tissues: Unremarkable. * A single impression for all exams can be found at the end of this report EXAM DESCRIPTION: XR Right Hand Complete, 3 Views CLINICAL HISTORY: PAIN TECHNIQUE: Frontal, lateral and oblique views of the right hand. COMPARISON: No relevant prior studies available. FINDINGS: Bones/joints: Unremarkable. No acute fracture. No dislocation. Soft tissues: Unremarkable. No radiopaque foreign body. * A single impression for all exams can be found at the end of this report IMPRESSION: XR Right Shoulder Complete, 2 Views: No acute injury. XR Right Humerus, 2 Views: No acute injury. XR Right Elbow Complete, 3 Views: No acute injury. XR Right Forearm, 2 Views: No acute injury. XR Right Hand Complete, 3 Views: No acute injury. Electronically signed by: Monroe Barrett MD 02/09/2024 01:31 AM CDT RP Due to temporary technical issues with the PACS/Fluency reporting system, reports are being signed by the in house radiologists without review as a courtesy to insure prompt reporting. The interpreting radiologist is fully responsible for the content of the report
== END 2024-02-09 02:20 | disposition home or self-care (01) ==
LOC: ER 23:06
DX: S43.401A Unspecified sprain of right shoulder joint, initial encounter (principal)
CPT/HCPCS: 99283

== ENCOUNTER 2024-03-08 12:35 | Emergency (ER) | payer OTHER ==
--- OUTSIDE RECORDS SUMMARY | 2024-03-08 12:49 | XMS REPORT | Continuity of Care Document ---
Author Name Unknown Address [address] [facility] [address] [place] [address] [facility] thconnect Address [address] [facility] [address] [place] [address] Care Team Providers Care Social Problems Specialist Name Role Phone Emily Gaines Primary Care Physician [phone] Mayuri James Attending Clinician Unavailabl GIBRAN Abernathy Attending Clinician Unavailable Karl Ferguson MD Attending Clinician [phone] OUTSIDE, REPORTED Attending Clinician UnavailHAYDEN Park Attending Clinician Unavailable Elida Lewis MD Attending Clinician [phone] LETI RIVAS Attending Clinician Unavailable Leti Cohn Attending Clinician [phone] ABRAHAM ORANTES Attending Clinician Unavailable Abraham Orantes MD Attending Clinician [phone] Chavez Turner DO Attending Clinician [phone] CALLIE MUNOZ Attending Clinician Unavailable CALLIE MUNOZ Attending Clinician Unavailable MERLYN HIDALGO Attending Clinician Unavailable Doctor Unassigned, [place] Attending Clinician U navailable ADAN CHESTER Attending Clinician Unav ailable KIARA RICHARDSON Attending Clinician Unava ilable Trevor TAYLOR Attending Clinician Unavailable ClaudiaTrevor Arevalo Attending Clinician [phone] JOHNATHAN AVILA Attending Clinician Unavail able Johnathan Avila MD Attending Clinician [phone] Jessie Paul Attending Clinician Unavaila JIMMY Mayfield Attending Clinician Unavailabl STEPHIE Cortes Attending Clinician Unavailab MIRIAM Cervantes Attending Clinician Unavailable MIRIAM LUDWIG Attending Clinician Unavailable Haresh Santamaria MD Attending Clinician + Jessie Gleason Attending Clinician Unavailab Dieudonne Winters Attending Clinician Unavailab le LAB56 Attending Clinician Unavailable MANFRED LANE Attending Clinician Unavaila AYDIN Miller Attending Clinician Unavailable Aydin Matos MD Attending Clinician [phone] NATALI ALEXANDER Attending Clinician Unavailab Natali Glass DO Attending Clinician [phone] ADELAIDE GOODWIN Attending Clinician Unavailable Adelaide Goodwin MD Attending Clinician [phone] HEMALATHA MORA Attending Clinician Unavailable Brayan Womackta Attending Clinician + [phone] JESSICA GONZALES S Attending Clinician Unavailable Christian SINCLAIR, Jessica S Attending Clinician [phone] SOHAM CLARKE Attending Clinician Unavaillupillo Clarke MD, Soham Sethi Attending Clinician + [phone] Azam MICE RAISER, Lion Attending Clinician [phone] MARK HERNANDEZ Attending Clinician Unavailable Mark Hernandez MD Attending Clinician +[phone] Ellen Carroll RN Attending Clinician + [phone] EMELIA GALLEGO Attending Clinician Unavailable Iberaunle MICE RAISER, Madison F Attending Clinician [phone] Emelia Gallego DO Attending Clinician [phone] Dyana FRENCHP, Felipe Street Attending Clinician + [phone] FELIPE ORTEGA Attending Clinician Unavailable Elliot HICKS, Gabriella iRchard Attending Clinician + [phone] Nurse, Adc Pob Immunization Attending Clinician Unavailable David Clarke DO Attending Clinician [phone] Nikhil Trevizo Attending Clinician [phone] NIKHIL BLANTON Attending Clinician Unavailable Pcp, Patient Does Not Have A Attending Clinician Isabela BARRIGA, Mirna Topete Attending Clinician Unavailab Darnell Denny Attending Clinician +[phone] DARNELL HSU Attending Clinician Unavailable Jessy Siddiqui DO Attending Clinician [phone] ABRAHAM ORANTES Admitting Clinician Unavailable JOHNATHAN AVILA [...] Clinician Unavailable Mark Hernandez MD Admitting Clinician [phone] Trevor TAYLOR Admitting Clinician Unavailable EMELIA GALLEGO Admitting Clinician Unavailable Emelia Gallego DO Admitting Clinician DARNELL HSU Admitting Clinician Unavailable Payers Payer Name Policy Type Policy Number Effective Date Expirati on Date Source AETNA MP [facility] SILVER 5 O STEM SIZER 94 ON 9 [id number] 2023 00:00:00 [facility] 2 [id number] 2023 00:00:00 [employer] GENERIC [id number] 2021 00:00:00 [facility] 6 [id number] [facility] Problems Condition Name Condition Details Condition Category Status Onset Date Resolution Date Last Treatment Date Treating Clinician Comments Source Well adult exam Well adult exam Disease Active 12-16 00:00: 00 Luz Maria Seybold - Externa l Class 1 obesity due to excess calories with serious comorbidit y and body mass index (BMI) of 32.0 to 32.9 in adult Class 1 obesity due to excess calories with serious comorbidit y and body mass index (BMI) of 32.0 to 32.9 in adult Disease Active 12-16 00:00: 00 Luz Maria Seybold - Externa l Chronic pancreatit is (multi HCC) Chronic pancreatit is (multi HCC) Disease Active 10-06 00:00: 00 Luz Maria Seybold - Externa l Chronic hepatitis C (multi HCC) Chronic hepatitis C (multi HCC) Disease Active 10-06 00:00: 00 Luz Maria Seybold - Externa l Hypertensi on Hypertensi on Disease Active 10-06 00:00: 00 Luz Maria Seybold - Externa l GERD (gastroeso phageal reflux disease) GERD (gastroeso phageal reflux disease) Disease Active 10-06 00:00: 00 Luz Maria Seybold - Externa l BPH (benign prostatic hyperplasi a) BPH (benign prostatic hyperplasi a) Disease Active 10-06 00:00: 00 Luz Maria Ng - Externa l Chronic back pain Chronic back pain Disease Active 10-06 00:00: 00 Luz Maria Callahana rona Spondylosi s of lumbar spine Spondylosi s of lumbar spine Disease Active 10-06 00:00: 00 Luz Maria Espinosa Externa l Epigastric pain Epigastric pain Disease Active 10-11 00:00: 00 [facility] SBO (small bowel obstructio n) SBO (small bowel obstructio n) Disease Active 10-30 00:00: 00 [facility] Obesity (BMI 30-39.9) Obesity (BMI 30-39.9) Disease Active 10-30 00:00: 00 [facility] No known active problems No known active problems Disease [facility] [id number] Bladder mass Problem [facility] [id number] Microscopi c hematuria Problem [facility] [id number] Suprapubic pain Problem [facility] [id number] Lower urinary tract symptoms Problem [facility] Allergies, Adverse Reactions, Alerts Allergy Name Allergy Type Status Severity Reaction(s) Onset Date Inactive Date Treating Clinician Comments Source bee venom protein (honey bee) DA Active SV THROAT SWELL 2022-09 00:00: 00 [facility] Bee Venom Propensi ty to adverse reaction s Active Swelling 10-30 00:00: 00 Luz Maria rea BEE VENOM PROTEIN (HONEY BEE) DRUG INGREDI Active Swelling 10-30 00:00: 00 [facility] No Known Allergie s DA Active U 04-19 00:00: 00 [facility] NO KNOWN ALLERGIE S Drug Class Active [facility] Social History Social Habit Start Date Stop Date Quantity Comments Source Gender identity Kelsi Ng - External Sexual orientation Trevor Ng - External History of tobacco use Cigarette Smoker Luz Maria trivedi - External Alcohol intake 2023-12-17 00:00:00 2023-12-17 00:00:00 Ex-drinker (finding) Luz Maria Ng - External Alcoholic beverage intake 2023-12-10 00:00:00 2023-12-10 00:00:00 Ex-drinker (finding) [facility] Cigarettes smoked current (pack per day) - Reported 2023-10-06 00:00:00 2023-10-06 00:00:00 Luz Maria Montenegro Cigarette pack-years 2023-10-06 00:00:00 2023-10-06 00:00:00 Luz Maria [place] Education - What is the highest level of school you have completed or the highest degree you have received? 2023-10-06 00:00:00 2023-10-06 00:00:00 Associate degree: academic program Luz Maria [place]en[place] Alcohol Comment 2023-10-06 00:00:00 2023-10-06 00:00:00 sober since 2016 Luz Maria Ng - External Tobacco use and exposure 2023-10-06 00:00:00 2023-10-06 00:00:00 Smokeless tobacco non-user Luz Maria [place] History of Social function 2023-06-01 00:00:00 2023-06-01 00:00:00 Luz Maria Espinosa External Exposure to SARS-CoV-2 (event) 2022-11-28 00:00:00 2022-12-08 23:50:[address] [facility] Sex Assigned At 1970 00:00:00 1970 00:00:00 Luz Maria [place] Smoking Status Start Date Stop Date Source Ex-smoker 2023-10-06 00:00:00 2023-10-06 00:00:00 Luz Maria Espinosa External Occasional tobacco smoker 2023-05-20 00:00:00 Luz Maria Monten[place]ro Never smoked tobacco [facility] Unknown if ever smoked [facility] Medications Ordered Medication Name Filled Medication Name Start Date Stop Date Current Medication? Ordering Clinician Indication Dosage Frequency Signature (SIG) Comments Components Source NaCl 0.9% (NS) bolus infusion 1,000 mL 02-20 03:45: 00 02-20 04:50 :00 No 1000mL at 999 mL/hr, 1,000 mL, IV Infusion, ONCE, 1 dose, On 02/20/24 at 2245, VASILIY [facility] FENTanyl PF (SUBLIMAZE (PF)) injection 50 mcg 02-20 03:00: 00 02-20 03:07 :00 No 50ug 50 mcg, Slow IV Push, ONCE, 1 dose, On 02/20/24 at 2200, Routine [facility] metoclopram jerilyn HCl (REGLAN) injection 10 mg 02-20 03:00: 00 02-20 03:07 :00 No 10mg 10 mg, Slow IV Push, ONCE, 1 dose, On 02/20/24 at 2200, [facility] bisacodyL (DULCOLAX) tablet 5 mg 02-20 03:00: 00 02-20 03:07 :00 No 5mg 5 mg, Oral, ONCE NOW, 1 dose, On 02/20/24 at 2200, Routine [facility] bisacodyL (DULCOLAX, BISACODYL,) 5 mg EC tablet 02-19 00:00: 00 Yes [id number] 5mg Take 1 tablet by mouth once daily as needed for Constipati on. [facility] dicyclomine 20 mg tablet 02-19 00:00: 00 Yes [id number] 20mg Take 1 tablet by mouth 4 (four) times daily as needed for Abdominal pain. [facility] Ketorolac Tromethamin e 10 MG oral Tablet 12-16 15:16: 47 12-16 00:00 :00 No 10mg Q.25D Take 1 tablet (10 mg total) by mouth every 6 hours as needed for pain FOR PAIN. Luz Maria rea Cyclobenzap rine HCl 10 MG oral Tablet 12-16 00:00: 00 Yes [id number] 10mg QD Take 1 tablet (10 mg total) by mouth nightly as needed for muscle spasms. Luz Maria rea HYDROcodone -acetaminop hen (NORCO) 10-325 mg tablet 1 tablet 12-09 04:45: 00 12-09 03:57 :00 No 1{tbl} 1 tablet, Oral, ONCE NOW, 1 dose, On Thu12/09/23 at 2345, Routine [facility] iopamidol (ISOVUE 370-500 mL) injection 100 mL 12-09 03:30: 00 12-09 03:30 :00 No [id number] 100mL 100 mL, Intravenou s, ONCE, 1 dose, On Thu12/09/23 at 2230, Routine [facility] ketorolac (TORADOL) injection 30 mg 12-09 03:00: 00 12-09 02:04 :00 No 30mg 30 mg, Slow IV Push, ONCE, 1 dose, On Thu12/09/23 at 2200, Routine [facility] Methocarbam ol 750 MG oral Tablet 12-09 00:00: 00 12-16 00:00 :00 No 750mg Q.25D Take 1 tablet (750 mg total) by mouth every 6 hours as needed FOR PAIN. Luz Maria rea ketorolac 10 mg tablet 12-08 00:00: 00 Yes [id number] 10mg Take 1 tablet by mouth every 6 (six) hours as needed for Pain (scale 7-10). [facility] methocarbam oL 750 mg tablet 12-08 00:00: 00 Yes [id number] 750mg Take 1 tablet by mouth every 6 (six) hours as needed for Pain (scale 7-10) (MUSCLE SPASM). [facility] Ketorolac Tromethamin e (TORADOL IM) 12-05 00:00: 00 12-16 00:00 :00 No Luz Maria rea Lisinopril 10 MG oral Tablet 10-06 14:45: 28 10-06 00:00 :00 No 10mg Take 1 tablet (10 mg total) by mouth daily. Luz Maria rea Pancrelipas e, Lip-Prot-Am yl, (Creon) [id number] units [address] Particles 10-06 00:00: 00 Yes [id number] 1{capsu le} Take 1 capsule by mouth 3 times daily (with meals). Luz Maria rea Amlodipine Besylate 10 MG oral Tablet 10-06 00:00: 00 Yes [id number] 10mg Take 1 tablet (10 mg total) by mouth daily. Luz Maria rea Lisinopril 10 MG oral Tablet 10-06 00:00: 00 Yes [id number] 10mg Take 1 tablet (10 mg total) by mouth daily. Luz Maria rea Famotidine (PEPCID) 20 MG oral tablet 10-06 00:00: 00 Yes [id number] 20mg Take 1 tablet (20 mg total) by mouth 2 times daily. Luz Maria rea Gabapentin 300 MG oral Capsule 10-06 00:00: 00 Yes [id number] 300mg Q.5D Take 1 capsule (300 mg total) by mouth 2 times daily as needed. Luz Maria rea Pantoprazol e Sodium 20 MG oral Tablet Delayed Response 10-06 00:00: 00 Yes [id number] 20mg Take 1 tablet (20 mg total) by mouth every morning. Luz Maria rea HYDROcodone -acetaminop hen (NORCO) 10-325 mg tablet 1 tablet 2022-09 06:45: 00 08-04 05:38 :00 No 1{tbl} 1 tablet, Oral, ONCE NOW, 1 dose, [facility]08/04/23 [facility] 0045[facility] (ROBAXIN) tablet 1,000 mg 2022-09 05:45: 00 08-04 05:38 :00 No 1000mg 1,000 mg, Oral, ONCE, 1 dose, On Thu08/03/23 at 2345, [facility] FENTanyl PF (SUBLIMAZE (PF)) injection 75 mcg 2022-09 05:00: 00 08-04 04:14 :00 No 75ug 75 mcg, Slow IV Push, ONCE, 1 dose, On Thu08/03/23 at 2300, Routine [facility] NaCl 0.9% (NS) IV infusion 1,000 mL 2022-09 04:45: 00 08-04 05:39 :00 No 1000mL at 999 mL/hr, Intravenou s, ONCE, 1 dose, On Thu08/03/23 at 2245, Routine [facility] methocarbam oL 500 mg tablet 2022-09 00:00: 00 Yes [id number] 500mg Take 1 tablet by mouth every 6 (six) hours as needed (MUSCLE SPASM). [facility] HYDROcodone -acetaminop hen (NORCO) 10-325 mg tablet 2022-09 00:00: 00 08-11 05:59 :00 No [id number] 1{tbl} Take 1 tablet by mouth every 6 (six) hours as needed for Pain (scale 7-10) for up to 7 days. Indication s: acute pain [facility] diphenhydrA MINE (BENADRYL) injection 25 mg 2022-09 19:30: 00 07-25 18:34 :00 No 25mg 25 mg, Slow IV Push, ONCE, 1 dose, On 07/25/23 at 1330, STAT [facility] metoclopram jerilyn HCl (REGLAN) injection 10 mg 2022-09 19:30: 00 07-25 18:34 :00 No 10mg 10 mg, Slow IV Push, ONCE, 1 dose, On 07/25/23 at 1330, VASILIY [facility] morpHINE (4 mg/mL) injection 4 mg 2022-09 17:30: 00 07-25 16:43 :00 No 4mg 4 mg, Slow IV Push, ONCE, 1 dose, On 07/25/23 at 1130, STAT [facility] ondansetron (ZOFRAN (PF)) injection 4 mg 2022-09 17:15: 00 07-25 16:43 :00 No 4mg 4 mg, Slow IV Push, ONCE, 1 dose, On 07/25/23 at 1115, VASILIY [facility] NaCl 0.9% (NS) bolus infusion 1,000 mL 2022-09 17:15: 00 07-25 18:54 :00 No 1000mL at 999 mL/hr, 1,000 mL, IV Infusion, ONCE, 1 dose, On 07/25/23 at 1115, STAT [facility] metoclopram jerilyn HCl 10 mg tablet 2022-09 00:00: 00 Yes [id number] 10mg Take 1 tablet by mouth every 6 (six) hours. [facility] sodium chloride (NS) injection 5 mL 2022-09 19:45: 30 Yes 5mL 5 mL, Intravenou s, PRN, Starting on Thu07/24/23 at 1345, Until Discontinu ed, Routine, IV line flushing [facility] dicyclomine 20 mg tablet 2022-09 00:00: 00 02-19 00:00 :00 No [id number] 20mg Take 1 tablet by mouth 4 (four) times daily as needed for Abdominal pain. [facility] ketorolac (TORADOL) injection 15 mg 2022-09 03:15: 00 07-12 02:32 :00 No 15mg 15 mg, Slow IV Push, ONCE, 1 dose, On 07/11/23 at 2215, Routine [facility] methocarbam oL (ROBAXIN) tablet 1,000 mg 2022-09 02:30: 00 07-12 02:32 :00 No 1000mg 1,000 mg, Oral, ONCE, 1 dose, On 07/11/23 at 2130, VASILIY [facility] famotidine (PEPCID (PF)) injection 20 mg 2022-09 02:30: 00 07-12 02:32 :00 No 20mg 20 mg, Slow IV Push, ONCE, 1 dose, On 07/11/23 at 2130, VASILIY [facility] aspirin chewable tablet 324 mg 2022-09 02:15: 00 07-12 02:31 :00 No 324mg 324 mg, Oral, ONCE, 1 dose, On 07/11/23 at 2115, STAT [facility] HYDROcodone -acetaminop hen 5-325 mg tablet 2022-09 00:00: 00 07-15 04:59 :00 No [id number] 1{tbl} Take 1 tablet by mouth every 4 (four) hours as needed for Pain (scale 7-10) for up to 3 days. Indication s: acute pain [facility] omeprazole 40 mg capsule 2022-09 00:00: 00 Yes [id number] 40mg Take 1 capsule by mouth in the morning and 1 capsule in the evening. [facility] peg-electro lyte soln 236-22.74-6 .74 -5.86 gram solution 2022-09 00:00: 00 Yes [id number] Take as directed before colonoscop y [facility] Lisinopril 10 MG oral Tablet 2022-09 08:45: [...] ONCE, 1 dose, On Thu07/03/23 at 0845, [facility] famotidine (PEPCID (PF)) injection 20 mg 2022-09 13:00: 00 07-03 12:49 :00 No 20mg 20 mg, Slow IV Push, ONCE, 1 dose, On Thu07/03/23 at 0800, [facility] iohexol (OMNIPAQUE 350 BULK-100 mL) injection 80 mL 2022-09 10:40: 00 07-03 10:40 :00 No [id number] 80mL 80 mL, Intravenou s, ONCE, 1 dose, On Thu07/03/23 at 0545, Routine [facility] ondansetron (ZOFRAN (PF)) injection 4 mg 2022-09 10:15: 00 07-03 10:20 :00 No 4mg 4 mg, Slow IV Push, ONCE, 1 dose, On Thu07/03/23 at 0515, VASILIY [facility] morpHINE (4 mg/mL) injection 4 mg 2022-09 10:15: 07-03 10:20 :00 No 4mg 4 mg, Slow IV Push, ONCE, 1 dose, On Thu07/03/23 at 0515, STAT [facility] Pantoprazol e Sodium 20 MG oral Tablet [...] 2022-09 00:00: 00 07-10 00:00 :00 No [id number] 20mg Take 1 tablet by mouth in the morning and 1 tablet in the evening. [facility] Lisinopril 10 MG oral Tablet 05-20 15:08: 12 Yes 10mg Take 1 tablet (10 mg total) by mouth daily. Luz Maria rea Tamsulosin HCl 0.4 MG oral Capsule 05-20 00:00: 00 Yes .4mg Take 1 capsule (0.4 mg total) by mouth every night at bedtime. Luz Maria rea iopamidol (ISOVUE 370-500 mL) injection 80 mL 05-08 03:15: 00 05-08 02:12 :00 No [id number] 80mL 80 mL, Intravenou s, ONCE, 1 dose, On Carrie 05/07/23 at 2215, Routine [facility] morpHINE (4 mg/mL) injection 4 mg 05-08 01:00: 00 05-08 01:38 :00 No 4mg 4 mg, Slow IV Push, ONCE, 1 dose, On Carrie 05/07/23 at 2000, [facility] NaCl 0.9% (NS) bolus infusion 1,000 mL 05-08 01:00: 00 05-08 04:22 :00 No 1000mL at 999 mL/hr, 1,000 mL, IV Infusion, ONCE, 1 dose, On Carrie 05/07/23 at 2000, [facility] NaCl 0.9% (NS) bolus infusion 1,000 mL 05-02 05:15: 00 05-02 05:29 :00 No 1000mL at 999 mL/hr, 1,000 mL, IV Infusion, ONCE, 1 dose, On 05/02/23 at 0015, [facility] famotidine (PEPCID (PF)) injection 20 mg 05-02 04:15: 00 05-02 04:21 :00 No 20mg 20 mg, Slow IV Push, ONCE, 1 dose, On Thu05/01/23 at 2315, [facility] maalox:diph enhydrAMINE :lidocaine 2 % viscous 1:1:1 ([facility]) oral suspension 15 mL 05-02 04:15: 00 05-02 04:21 :00 No 15mL 15 mL, Oral, ONCE, 1 dose, On Thu05/01/23 at 2315, [facility] ondansetron (ZOFRAN (PF)) injection 4 mg 05-02 04:15: 00 05-02 03:18 :00 No 4mg 4 mg, Slow IV Push, ONCE, 1 dose, On Thu05/01/23 at 2315, [facility] NaCl 0.9% (NS) bolus infusion 1,000 mL 05-02 04:15: 00 05-02 04:15 :00 No 1000mL at 999 mL/hr, 1,000 mL, IV Infusion, ONCE, 1 dose, On Thu05/01/23 at 2315, STAT [facility] metoclopram jerilyn HCl 10 mg tablet 05-01 00:00: 00 Yes [id number] 10mg Take 1 tablet by mouth every 6 (six) hours. [facility] pantoprazol e (PROTONIX) 20 mg EC tablet 05-01 00:00: 00 07-03 00:00 :00 No [id number] 20mg Take 1 tablet by mouth in the morning. [facility] iopamidol (ISOVUE 370-500 mL) injection 70 mL 04-22 16:21: 00 04-22 16:21 :00 No [id number] 70mL 70 mL, Intravenou s, ONCE, 1 dose, On Thu04/22/23 at 1145, Routine [facility] haloperidol lactate (HALDOL) injection 2.5 mg 04-22 16:00: 00 04-22 16:01 :00 No 2.5mg 2.5 mg, Intravenou s, ONCE, 1 dose, On Thu04/22/23 at 1100, STAT [facility] NaCl 0.9% (NS) bolus infusion 500 mL 04-22 14:45: 00 04-22 15:30 :00 No 500mL at 999 mL/hr, 500 mL, IV Infusion, ONCE, 1 dose, On Thu04/22/23 at 0945, STAT [facility] maalox:diph enhydrAMINE :lidocaine 2 % viscous 1:1:1 ([facility]) oral suspension 15 mL 04-22 13:00: 00 04-22 12:55 :00 No 15mL 15 mL, Oral, ONCE, 1 dose, On Thu04/22/23 at 0800, Routine [facility] NaCl 0.9% (NS) IV infusion 1,000 mL 04-22 12:45: 00 Yes 1000mL at 999 mL/hr, Intravenou s, CONTINUOUS , Starting on Thu04/22/23 at 0745, Until Discontinu ed, Routine [facility] NaCl 0.9% (NS) bolus infusion 1,000 mL 04-22 10:30: 00 04-22 11:30 :00 No 1000mL at 999 mL/hr, 1,000 mL, IV Infusion, ONCE, 1 dose, On Thu04/22/23 at 0530, STAT [facility] ketorolac (TORADOL) injection 30 mg 04-22 10:30: 00 04-22 09:21 :00 No 30mg 30 mg, Slow IV Push, ONCE, 1 dose, On Thu04/22/23 at 0530, Routine [facility] diphenhydrA MINE (BENADRYL) injection 25 mg 04-22 09:30: 00 04-22 09:21 :00 No 25mg 25 mg, Slow IV Push, ONCE, 1 dose, On Thu04/22/23 at 0430, STAT [facility] metoclopram jerilyn HCl (REGLAN) injection 10 mg 04-22 09:30: 00 04-22 09:21 :00 No 10mg 10 mg, Slow IV Push, ONCE, 1 dose, On Thu04/22/23 at 0430, VASILIY [facility] NaCl 0.9% (NS) bolus infusion 1,000 mL 04-22 09:15: 00 04-22 10:28 :00 No 1000mL at 999 mL/hr, 1,000 mL, IV Infusion, ONCE, 1 dose, On Thu04/22/23 at 0415, STAT [facility] Tramadol HCl (ULTRAM) 50 MG oral Tablet [...] On Carrie 04/16/23 at 0915, Routine [facility] famotidine (PEPCID (PF)) injection 20 mg 04-16 13:30: 00 04-16 12:33 :00 No 20mg 20 mg, Slow IV Push, ONCE NOW, 1 dose, On Carrie 04/16/23 at 0830, VASILIY [facility] dicyclomine (BENTYL) injection 20 mg 04-16 13:30: 00 04-16 12:34 :00 No 20mg 20 mg, Intramuscu lar, ONCE NOW, 1 dose, On Carrie 04/16/23 at 0830, Routine [facility] enalaprilat (VASOTEC I.V.) injection 1.25 mg 04-16 13:15: 00 04-16 13:17 :00 No 1.25mg 1.25 mg, Slow IV Push, ONCE, 1 dose, On Carrie 04/16/23 at 0815, STAT [facility] lactulose (CEPHULAC) solution 45 mL 04-16 13:15: 00 04-16 13:18 :00 No 45mL 45 mL, Oral, ONCE, 1 dose, On Carrie 04/16/23 at 0815, VASILIY [facility] ketorolac (TORADOL) injection 30 mg 04-16 13:15: 00 04-16 12:32 :00 No 30mg 30 mg, Slow IV Push, ONCE NOW, 1 dose, On Carrie 04/16/23 at 0815, VASILIY [facility] NaCl 0.9% (NS) bolus infusion 1,000 mL 04-16 13:15: 00 04-16 13:54 :00 No 1000mL at 999 mL/hr, 1,000 mL, IV Piggyback, ONCE, 1 dose, On Carrie 04/16/23 at 0815, STAT [facility] lipase-prot ease-amylas e (CREON) 3,000-9,500 - 15,000 unit capsule 04-16 00:00: 00 Yes [id number] 3000U Take 1 capsule by mouth in the morning and 1 capsule at noon and 1 capsule in the evening. Take with meals. [facility] hyoscyamine sulfate (LEVSIN/SL) 0.125 mg sublingual tablet 04-16 00:00: [id number] 2 tablets under the tongue every 6 (six) hours as needed (Abdominal pain or cramping). [facility] bisacodyL 5 mg EC tablet 04-16 00:00: 00 Yes [id number] 5mg Take 1 tablet by mouth once daily as needed for Constipati on. [facility] Famotidine (PEPCID) 20 MG oral tablet 04-16 00:00: 00 10-06 00:00 :00 No 20mg Take 1 tablet (20 mg total) by mouth 2 times daily. [facility] Wallace l Lorazepam 1 MG oral Tablet 04-05 00:00: 00 10-06 00:00 :00 No 1mg [id number] 3D Take 1 tablet (1 mg total) by mouth every 8 hours as needed. [facility] Wallace l iopamidol (ISOVUE 370-500 mL) injection 100 mL 04-01 07:45: 00 04-01 06:58 :00 No [id number] 100mL 100 mL, Intravenou s, ONCE, 1 dose, On Thu04/01/23 at 0245, Routine [facility] famotidine (PEPCID (PF)) injection 20 mg 04-01 05:45: 00 04-01 06:09 :00 No 20mg 20 mg, Slow IV Push, ONCE, 1 dose, On Thu04/01/23 at 0045, [facility] F[facility] (SUBLIMAZE (PF)) injection 50 mcg 04-01 05:38: 00 04-01 06:10 :00 No 50ug 50 mcg, Slow IV Push, ONCE, 1 dose, On Thu04/01/23 at 0045, [facility] NaCl 0.9% (NS) IV infusion 1,000 mL 04-01 05:05: 00 04-01 06:30 :00 No 1000mL at 999 mL/hr, Intravenou s, ONCE, 1 dose, On Thu04/01/23 at 0015, [facility] ondansetron (ZOFRAN (PF)) injection 4 mg 04-01 05:05: 00 04-01 05:08 :00 No 4mg 4 mg, Slow IV Push, ONCE, 1 dose, On Thu04/01/23 at 0015, [facility] sodium chloride (NS) injection 5 mL 04-01 05:04: 36 Yes 5mL 5 mL, Intravenou s, PRN, Starting on Thu04/01/23 at 0004, Until Discontinu ed, Routine, IV line flushing [facility] ondansetron 4 mg disintegrat ing tablet 04-01 00:00: 00 Yes [id number] 4mg Take 1 tablet by mouth every 8 (eight) hours as needed for Nausea and Vomiting (N/V). [facility] traMADoL 50 mg tablet 04-01 00:00: 00 04-09 04:59 :00 No [id number] 50mg Take 1 tablet by mouth every 8 (eight) hours as needed for Pain (scale 4-6) for up to 7 days. Indication s: acute pain [facility] predniSONE (DELTASONE) tablet 40 mg 12-09 07:15: 12-09 06:33 :00 No 40mg 40 mg, Oral, ONCE, 1 dose, On Thu12/09/22 at 0215, [facility] traMADoL (ULTRAM) tablet 50 mg 12-09 07:15: 12-09 06:33 :00 No 50mg 50 mg, Oral, ONCE, 1 dose, On Thu12/09/22 at 0215, [facility] iopamidol (ISOVUE 370-500 mL) injection 100 mL 12-09 06:15: 00 12-09 06:15 :00 No [id number] 100mL 100 mL, Intravenou s, ONCE, 1 dose, On Thu12/09/22 at 0115, Routine [facility] ketorolac (TORADOL) injection 30 mg 12-09 06:15: 12-09 05:30 :00 No 30mg 30 mg, Slow IV Push, ONCE, 1 dose, On Thu12/09/22 at 0115, [facility] morpHINE (4 mg/mL) injection 4 mg 12-09 06:15: 12-09 05:30 :00 No 4mg 4 mg, Slow IV Push, ONCE, 1 dose, On Thu12/09/22 at 0115, [facility] NaCl 0.9% (NS) bolus infusion 1,000 mL 12-09 06:15: 00 12-09 06:33 :00 No 1000mL at 999 mL/hr, 1,000 mL, IV Infusion, ONCE, 1 dose, On Thu12/09/22 at 0115, [facility] ondansetron (ZOFRAN (PF)) injection 8 mg 12-09 05:30: 00 12-09 05:30 :00 No 8mg 8 mg, Slow IV Push, ONCE, 1 dose, On Thu12/09/22 at 0030, VASILIY [facility] traMADoL 50 mg tablet 12-09 00:00: 00 Yes [id number] 50mg Take 1 tablet by mouth every 6 (six) hours as needed (pain). Indication s: acute pain [facility] ondansetron 4 mg tablet 12-09 00:00: 00 Yes [id number] 1-2 tablets every 8 hours as needed for nausea [facility] predniSONE 20 mg tablet 12-09 00:00: 00 12-17 04:59 :00 No [id number] 40mg Take 2 tablets by mouth in the morning for 7 days. [facility] iopamidol (ISOVUE 370-500 mL) injection 100 mL 11-25 06:15: 00 11-25 06:15 :00 No [id number] 100mL 100 mL, Intravenou s, ONCE, 1 dose, On Thu11/25/22 at 0115, Routine [facility] NaCl 0.9% (NS) bolus infusion 1,000 mL 11-25 06:00: 00 11-25 07:00 :00 No 1000mL at 999 mL/hr, 1,000 mL, IV Infusion, ONCE, 1 dose, On Thu11/25/22 at 0100, STAT [facility] FENTanyl PF (SUBLIMAZE (PF)) injection 50 mcg 11-25 05:45: 00 11-25 05:03 :00 No 50ug 50 mcg, Slow IV Push, ONCE, 1 dose, On Thu11/25/22 at 0045, Routine [facility] ondansetron (ZOFRAN (PF)) injection 4 mg 11-25 05:00: 00 11-25 05:04 :00 No 4mg 4 mg, Slow IV Push, ONCE, 1 dose, On Thu11/25/22 at 0000, VASILIY [facility] Pancrelipas e, Lip-Prot-Am yl, (Creon) [id number] units [address] Particles 10-13 00:00: 00 10-06 00:00 :00 No Luz Maria Ng - [place] l lipase-prot ease-amylas e (CREON) 12,000-38,0 00 -60,000 unit capsule 2 capsule 10-12 23:00: 00 Yes 2{capsu le} 2 capsule, Oral, TID MEALS, First dose on 10/12/22 at 1700, Until Discontinu ed, [facility] l[facility] 10 mg tablet 10-12 17:56: 15 Yes 10mg Take 10 mg by mouth in the morning. [facility] meloxicam (MOBIC) tablet 7.5 mg 10-12 17:15: 00 Yes 7.5mg 7.5 mg, Oral, DAILY, First dose on Thu10/12/22 at 1115, Until Discontinu ed, Routine [facility] omeprazole (PRILOSEC) capsule 20 mg 10-12 15:00: 00 Yes 20mg 20 mg, Oral, DAILY, First dose on 10/12/22 at 0900, Until Discontinu ed, Routine [facility] Pantoprazol e Sodium 40 MG oral Tablet Delayed Response 10-12 00:00: 00 10-06 00:00 :00 No Luz Maria Wallace l lipase-prot ease-amylas e 12,000-38,0 00 -60,000 unit capsule 10-12 00:00: 00 01-11 04:59 :00 No [id number] 2{capsu le} Take 2 capsules by mouth in the morning and 2 capsules at noon and 2 capsules in the evening. Take with meals. Do all this for 90 days. Do not crush or chew. [facility] meloxicam 7.5 mg tablet 10-12 00:00: 00 10-27 05:59 :00 No [id number] 7.5mg Take 1 tablet by mouth once daily as needed for Pain (scale 7-10) for up to 14 days. [facility] HYDROcodone -acetaminop hen 5-325 mg tablet 10-12 00:00: 00 10-20 05:59 :00 No [id number] 1{tbl} Take 1 tablet by mouth every 6 (six) hours as needed for Pain (scale 4-6) for up to 7 days. Indication s: acute pain [facility] amLODIPine (NORVASC) tablet 10 mg 10-11 20:00: 00 Yes 10mg 10 mg, Oral, DAILY, First dose on 10/11/22 at 1400, Until Discontinu ed, Routine [facility] lactated ringers IV infusion 1,000 mL 10-11 20:00: 00 10-12 14:03 :28 No 1000mL at 125 mL/hr, 1,000 mL, IV Infusion, CONTINUOUS , Starting on 10/11/22 at 1400, Until 10/12/22 at 0803, Routine [facility] HYDROcodone -acetaminop hen (NORCO 5) 5-325 mg tablet 1 tablet 10-11 19:35: 19 10-13 19:34 :19 No 1{tbl} 1 tablet, Oral, Q6HPRN, Starting on 10/11/22 at 1335, Until 10/13/22 at 1334, Routine, Pain (scale 4-6) [facility] acetaminoph en (TYLENOL) tablet 650 mg 10-11 19:35: 16 Yes 650mg 650 mg, Oral, Q6HPRN, Starting on 10/11/22 at 1335, Until Discontinu ed, Routine, Pain (scale 1-3) [facility] NaCl 0.9% (NS) bolus infusion 1,000 mL 10-11 16:45: 00 10-11 16:02 :00 No 1000mL at 999 mL/hr, 1,000 mL, Intravenou s, ONCE, 1 dose, On 10/11/22 at 1045, STAT [facility] ondansetron (ZOFRAN (PF)) injection 4 mg 10-11 16:15: 00 10-11 16:15 :00 No 4mg 4 mg, Slow IV Push, ONCE, 1 dose, On 10/11/22 at 1015, VASILIY [facility] morpHINE (4 mg/mL) injection 4 mg 10-11 16:15: 00 10-11 16:14 :00 No 4mg 4 mg, Slow IV Push, ONCE, 1 dose, On 10/11/22 at 1015, STAT [facility] iopamidol (ISOVUE 370-500 mL) injection 120 mL 10-11 15:45: 00 10-11 14:43 :00 No [id number] 120mL 120 mL, Intravenou s, ONCE, 1 dose, On 10/11/22 at 0945, Routine [facility] FENTanyl PF (SUBLIMAZE (PF)) injection 50 mcg 10-09 08:30: 00 10-09 07:23 :00 No 50ug 50 mcg, Slow IV Push, ONCE, 1 dose, On Carrie 10/09/22 at 0230, Routine [facility] iopamidol (ISOVUE 370-500 mL) injection 100 mL 10-09 07:15: 00 10-09 07:15 :00 No [id number] 100mL 100 mL, Intravenou s, ONCE, 1 dose, On Carrie 10/09/22 at 0115, Routine [facility] ketorolac (TORADOL) injection 30 mg 10-09 06:15: 00 10-09 05:25 :00 No 30mg 30 mg, Slow IV Push, ONCE, 1 dose, On Carrie 10/09/22 at 0015, Routine [facility] ondansetron (ZOFRAN) 4 mg tablet 10-09 00:00: 00 Yes [id number] 4mg Take 1 tablet by mouth every 8 (eight) hours as needed for Nausea and Vomiting (N/V). [facility] tra[facility] (ULTRAM) 50 mg tablet 10-09 00:00: 00 Yes [id number] 50mg Take 1 tablet by mouth every 6 (six) hours as needed for Pain (scale 7-10). Indication s: acute pain [facility] ketorolac (TORADOL) injection 30 mg 2021-09 2-07 17:15: 00 08-20 16:35 :00 No 30mg 30 mg, Intramuscu lar, ONCE, 1 dose, On Thu08/20/22 at 1115, [facility] Amlodipine Besylate 10 MG oral Tablet 2021-09 00:00: 00 10-06 00:00 :00 No Luz Maria Ng - [place] rona morpHINE (4 mg/mL) injection 4 mg 06-09 13:15: 00 06-09 12:54 :00 No 4mg 4 mg, Slow IV Push, ONCE, 1 dose, On Thu06/09/22 at 0815, [facility] ketorolac (TORADOL) injection 30 mg 06-09 13:15: 00 06-09 12:55 :00 No 30mg 30 mg, Slow IV Push, ONCE, 1 dose, On Thu06/09/22 at 0815, [facility] iopamidol (ISOVUE 370-500 mL) injection 60 mL 06-09 13:07: 00 06-09 13:08 :00 No [id number] 60mL 60 mL, Intravenou s, ONCE, 1 dose, On Thu06/09/22 at 0815, Routine [facility] ondansetron (ZOFRAN (PF)) injection 4 mg 06-09 12:30: 00 06-09 12:54 :00 No 4mg 4 mg, Slow IV Push, ONCE, 1 dose, On Thu06/09/22 at 0730, [facility] dexamethaso ne sod phos PF injection 10 mg 06-09 12:30: 00 06-09 12:55 :00 No 10mg 10 mg, Slow IV Push, ONCE, 1 dose, On Thu06/09/22 at 0730, 1 mL [facility] traMADoL 50 mg tablet 06-09 00:00: 00 10-11 00:00 :00 No [id number] 50mg Take 1 tablet by mouth every 6 (six) hours as needed (pain). Indication s: acute pain [facility] lidocaine 5 % (700 mg/patch) patch 06-09 00:00: 00 10-11 00:00 :00 No [id number] Apply one patch to most painful area up to 12 hours a day as needed for pain. PHARMACIST : dispense one box [facility] predniSONE 20 mg tablet 06-09 00:00: 00 06-17 04:59 :00 No [id number] 40mg Take 2 tablets by mouth in the morning for 7 days. [facility] Dose Unknown 02-03 00:00: 00 No Dose Unknown 02-03 00:00: 00 No lisinopriL (PRINIVIL,Z ESTRIL) tablet 20 mg 11-01 03:00: 00 Yes 20mg 20 mg, Oral, QHS, First dose (after last modificati on) on Thu10/31/21 at 2100, Until Discontinu ed, Routine [facility] lisinopriL 20 mg tablet 11-01 00:00: 00 12-02 04:59 :00 No [id number] 20mg Take 1 tablet by mouth at bedtime for 30 days. [facility] lactated ringers IV infusion 1,000 mL 10-31 19:00: 00 Yes 1000mL at 75 mL/hr, 1,000 mL, IV Infusion, CONTINUOUS , Starting on Thu10/31/21 at 1300, Until Discontinu ed, Routine [facility] amLODIPine (NORVASC) tablet 10 mg 10-31 15:00: 00 Yes 10mg 10 mg, Oral, DAILY, First dose on Thu10/31/21 at 0900, Until Discontinu ed, Routine [facility] enoxaparin (LOVENOX) injection 40 mg 10-31 15:00: 00 Yes 40mg 40 mg, Subcutaneo us, DAILY, First dose on Thu10/31/21 at 0900, Until Discontinu ed, Routine [facility] lactated ringers IV infusion 1,000 mL 10-31 07:00: 00 10-31 18:45 :24 No 1000mL at 150 mL/hr, 1,000 mL, IV Infusion, CONTINUOUS , Starting on Thu10/31/21 at 0100, Until Thu10/31/21 at 1245, Routine [facility] lactated ringers IV infusion 1,000 mL 10-31 01:00: 00 10-31 06:52 :16 No 1000mL at 75 mL/hr, 1,000 mL, IV Infusion, CONTINUOUS , Starting on Thu10/30/21 at 1900, Until Thu10/31/21 at 0052, Routine [facility] morpHINE injection 4 mg 10-31 00:43: 35 11-01 00:42 :35 No 4mg 4 mg, Slow IV Push, Q4HPRN, Starting on Thu10/30/21 at 1843, Until Carrie 10/31/21 at 1842, Routine, Pain (scale 7-10) [facility] HYDROcodone -acetaminop hen (NORCO 5) 5-325 mg tablet 1 tablet 10-31 00:43: 32 11-02 00:42 :32 No 1{tbl} 1 tablet, Oral, Q6HPRN, Starting on Thu10/30/21 at 1843, Until Thu11/01/21 at 1842, Routine, Pain (scale 4-6) [facility] acetaminoph en (TYLENOL) tablet 650 mg 10-31 00:43: 22 Yes 650mg 650 mg, Oral, Q6HPRN, Starting on Thu10/30/21 at 1843, Until Discontinu ed, Routine, Pain (scale 1-3) [facility] ondansetron (ZOFRAN (PF)) injection 4 mg 10-30 21:15: 00 10-30 20:28 :00 No 4mg 4 mg, Slow IV Push, ONCE, 1 dose, On Thu10/30/21 at 1515, [facility]ILIY [facility] morpHINE injection 4 mg 10-30 21:15: 00 10-30 20:29 :00 No 4mg 4 mg, Slow IV Push, ONCE, 1 dose, On Thu10/30/21 at 1515, STAT [facility] NaCl 0.9% (NS) bolus infusion 1,000 mL 10-30 21:15: 00 10-30 20:29 :00 No 1000mL at 999 mL/hr, 1,000 mL, IV Infusion, ONCE, 1 dose, On Thu10/30/21 at 1515, [facility]IY [facility] iopamidol (ISOVUE 370-500 mL) injection 100 mL 10-30 20:37: 00 10-30 20:35 :00 No [id number] 100mL 100 mL, Intravenou s, ONCE, 1 dose, On Thu10/30/21 at 1445, Routine [facility] lisinopril 10 mg tablet 2-03 00:00: 00 No 1mg amlodipine 10 mg tablet 2-03 00:00: 00 No 1mg lisinopril 10 mg tablet 2020-09 0-13 00:00: 00 No 1mg amlodipine 10 mg tablet 2020-09 0-13 00:00: 00 No 1mg NaCl 0.9% (NS) bolus infusion 1,000 mL 05-24 03:45: 00 05-24 05:00 :00 No 1000mL at 999 mL/hr, 1,000 mL, IV Piggyback, ONCE, 1 dose, [facility] 05/23/21 at 2245, STAT [facility] NaCl 0.9% (NS) bolus infusion 1,000 mL 05-24 03:00: 00 05-24 03:00 :00 No 1000mL at 999 mL/hr, 1,000 mL, IV Piggyback, ONCE, 1 dose, [facility] 05/23/21 at 2200, STAT [facility] NaCl 0.9% (NS) bolus infusion 500 mL 05-23 03:15: 00 05-23 15:14 :00 No 500mL at 999 mL/hr, 500 mL, IV Piggyback, ONCE, 1 dose, 05/22/21 at 2215, STAT [facility] dexamethaso ne (DECADRON PHOSPHATE) injection 10 mg 04-02 03:30: 00 04-02 02:47 :00 No 10mg 10 mg, Intramuscu lar, ONCE, 1 dose, 04/01/21 at 2230, STAT [facility] ketorolac (TORADOL) injection 60 mg 03-18 04:00: 00 03-18 02:56 :00 No 60mg 60 mg, Intramuscu lar, ONCE, 1 dose, 03/17/21 at 2300, VASILIY
Fa culty member approving Restricted medication : EMERGENCY ROOM, [facility] ibuprofen 800 mg tablet 03-17 00:00: 00 05-23 00:00 :00 No [id number] 800mg Take 1 tablet by mouth every 8 (eight) hours as needed for Pain (scale 4-6). [facility] acetaminoph en-codeine 300-30 mg tablet 03-17 00:00: 00 03-25 04:59 :00 No [id number] 1{tbl} Take 1 tablet by mouth every 6 (six) hours as needed for Pain (scale 7-10) for up to 7 days. Indication s: acute pain [facility] benzonatate (TESSALON PERLES) capsule 200 mg 11-15 05:00: 00 11-15 04:51 :00 No 200mg 200 mg, Oral, ONCE, 1 dose, Thu11/14/20 at 2300, Routine [facility] Dose Unknown 11-14 00:00: 00 No Dose Unknown 11-14 00:00: 00 No benzonatate 100 mg capsule 11-14 00:00: 00 05-23 00:00 :00 No [id number] 100mg Take 1 capsule by mouth 3 (three) times daily as needed for Cough. [facility] diphenhydrA MINE (BENADRYL) injection 25 mg 09-30 16:00: 00 09-30 15:17 :00 No 25mg 25 mg, Slow IV Push, ONCE, 1 dose, 09/30/20 at 1000, STAT [facility] metoclopram jerilyn HCl (REGLAN) injection 10 mg 09-30 16:00: 00 09-30 15:17 :00 No 10mg 10 mg, Slow IV Push, ONCE, 1 dose, 09/30/20 at 1000[facility] NaCl 0.9% (NS) bolus infusion 1,000 mL 09-30 15:00: 00 09-30 16:45 :00 No 1000mL at 999 mL/hr, 1,000 mL, IV Infusion, ONCE, 1 dose, 09/30/20 at 0900, [facility] amLODIPine (NORVASC) 10 mg tablet 09-30 00:00: 00 Yes [id number] 10mg Take 1 tablet by mouth daily. [facility] lisinopriL 10 mg tablet 09-30 00:00: 00 11-01 00:00 :00 No [id number] 10mg Take 1 tablet by mouth at bedtime. [facility] Dose Unknown 2019-09 00:00: 00 No Dose Unknown 2019-09 00:00: 00 No maalox:diph enhydrAMINE :lidocaine 2 % viscous 1:1:1 ([facility]) oral suspension 15 mL 2019-09 03:30: 00 07-02 03:30 :00 No 15mL 15 mL, Oral, ONCE, 1 dose, 07/01/20 at 2230, [facility] sodium chloride (NS) injection 5 mL 2019-09 03:00: 48 Yes 5mL 5 mL, Intravenou s, PRN, Starting 07/01/20 at 2200, Until Discontinu ed, Routine, IV line flushing [facility] sucralfate 1 gram tablet 2019-09 00:00: 00 07-16 05:59 :00 No [id number] 1g Take 1 tablet by mouth before meals and at bedtime for 14 days. [facility] lisinopril 10 mg tablet 04-12 00:00: 00 No 1mg amlodipine 10 mg tablet 04-12 00:00: 00 No 1mg No known medications No Un veronica [facility] Immunizations Ordered Immunization Name Filled Immunization Name Date Status Comments Source SARS-COV-2 COVID-19 PFIZER VACCINE 2021-05-07 00:00:[address] [facility] SARS-COV-2 COVID-19 PFIZER VACCINE 2021-05-07 00:00:[address] [facility] SARS-COV-2 COVID-19 PFIZER VACCINE 2021-05-07 00:00:[address] [facility] SARS-COV-2 COVID-19 PFIZER VACCINE 2021-05-07 00:00:[address] [facility] SARS-COV-2 COVID-19 PFIZER VACCINE 2021-05-07 00:00:[address] [facility] SARS-COV-2 COVID-19 PFIZER VACCINE 2021-05-07 00:00:[address] [facility] SARS-COV-2 COVID-19 PFIZER VACCINE 2021-05-07 00:00:[address] [facility] SARS-COV-2 COVID-19 PFIZER VACCINE 2021-05-07 00:00:[address] [facility] SARS-COV-2 COVID-19 PFIZER VACCINE 2021-05-07 00:00:[address] [facility] SARS-COV-2 COVID-19 PFIZER VACCINE 2021-05-07 00:00:[address] [facility] SARS-COV-2 COVID-19 PFIZER VACCINE 2021-05-07 00:00:[address] [facility] SARS-COV-2 COVID-19 PFIZER VACCINE 2021-05-07 00:00:[address] [facility] SARS-COV-2 COVID-19 PFIZER VACCINE 2021-05-07 00:00:[address] [facility] SARS-COV-2 COVID-19 PFIZER VACCINE 2021-05-07 00:00:[address] [facility] SARS-COV-2 COVID-19 PFIZER VACCINE 2021-05-07 00:00:[address] [facility] SARS-COV-2 COVID-19 PFIZER VACCINE 2021-05-07 00:00:[address] [facility] SARS-COV-2 COVID-19 PFIZER VACCINE 2021-05-07 00:00:[address] [facility] SARS-COV-2 COVID-19 PFIZER VACCINE 2021-05-07 00:00:[address] [facility] SARS-COV-2 COVID-19 PFIZER VACCINE 2021-05-07 00:00:[address] [facility] SARS-COV-2 COVID-19 PFIZER VACCINE 2021-05-07 00:00:[address] [facility] SARS-COV-2 COVID-19 PFIZER VACCINE 2021-05-07 00:00:[address] [facility] SARS-COV-2 COVID-19 PFIZER VACCINE 2021-05-07 00:00:[address] [facility] SARS-COV-2 COVID-19 PFIZER VACCINE 2021-05-07 00:00:[address] [facility] SARS-COV-2 COVID-19 PFIZER VACCINE 2021-05-07 00:00:[address] [facility] SARS-COV-2 COVID-19 PFIZER VACCINE 2021-05-07 00:00:[address] [facility] SARS-COV-2 COVID-19 PFIZER VACCINE Unknown Completed [facility] SARS-COV-2 COVID-19 PFIZER VACCINE Unknown Completed [facility] SARS-COV-2 COVID-19 PFIZER VACCINE Unknown Completed [facility] SARS-COV-2 COVID-19 PFIZER VACCINE Unknown Completed [facility] SARS-COV-2 COVID-19 PFIZER VACCINE Unknown Completed [facility] SARS-COV-2 COVID-19 PFIZER VACCINE Unknown Completed [facility] SARS-COV-2 COVID-19 PFIZER VACCINE Unknown Completed [facility] SARS-COV-2 COVID-19 PFIZER VACCINE Unknown Completed [facility] SARS-COV-2 COVID-19 PFIZER VACCINE Unknown Completed [facility] SARS-COV-2 COVID-19 PFIZER VACCINE Unknown Completed [facility] SARS-COV-2 COVID-19 PFIZER VACCINE Unknown Completed [facility] SARS-COV-2 COVID-19 PFIZER VACCINE Unknown Completed [facility] SARS-COV-2 COVID-19 PFIZER VACCINE Unknown Completed [facility] SARS-COV-2 COVID-19 PFIZER VACCINE Unknown Completed [facility] SARS-COV-2 COVID-19 PFIZER VACCINE Unknown Completed [facility] SARS-COV-2 COVID-19 PFIZER VACCINE Unknown Completed [facility] SARS-COV-2 COVID-19 PFIZER VACCINE Unknown Completed [facility] SARS-COV-2 COVID-19 PFIZER VACCINE Unknown Completed [facility] SARS-COV-2 COVID-19 PFIZER VACCINE Unknown Completed [facility] SARS-COV-2 COVID-19 PFIZER VACCINE Unknown Completed [facility] SARS-COV-2 COVID-19 P[address] VACCINE Unknown Completed [facility] Vital Signs Vital Name Observation Time Observation Value Comments S ource Systolic blood pressure 2024-02-21 04:48:00 132 mm[Hg] [facility] Diastolic blood pressure 2024-02-21 04:48:00 82 mm[Hg] [facility] Heart rate 2024-02-21 04:48:00 74 /min [facility] Body temperature 2024-02-21 04:48:[address] [facility] Respiratory rate 2024-02-21 04:48:00 15 /min [facility] Oxygen saturation in Arterial blood by Pulse oximetry 2024-02-21 04:48:00 98 /min [facility] Body height 2024-02-21 02:43:00 195.6 cm [facility] Body weight 2024-02-21 02:43:00 115.667 kg [facility] BMI 2024-02-21 02:43:00 30.24 kg/m2 [facility] Systolic blood pressure 2023-12-17 20:32:00 112 mm[Hg] Luz Maria walden - External Diastolic blood pressure 2023-12-17 20:32:00 80 mm[Hg] Luz Maria walden - External Heart rate 2023-12-17 20:07:00 96 /min Sallie Ng - External Body temperature 2023-12-17 20:07:00 36.44 Cindi Luz Maria Seybold - External Respiratory rate 2023-12-17 20:07:00 15 /min Luz Maria Ingramybold - External Body height 2023-12-17 20:07:00 195.6 cm Kelsi hampton Seybold - External Body weight 2023-12-17 20:07:00 125.193 kg Kelsi hampton Seybold - External BMI 2023-12-17 20:07:00 32.73 kg/m2 Kelsi hampton Seybold - External Oxygen saturation in Arterial blood by Pulse oximetry 2023-12-17 20:07:00 100 /min Luz Maria Ingramybo ld - External Systolic blood pressure 2023-12-10 03:57:00 157 mm[Hg] [facility] Diastolic blood pressure 2023-12-10 03:57:00 83 mm[Hg] [facility] Heart rate 2023-12-10 03:57:00 70 /min [facility] Respiratory rate 2023-12-10 03:57:00 16 /min [facility] Oxygen saturation in Arterial blood by Pulse oximetry 2023-12-10 03:57:00 99 /min [facility] Body temperature 2023-12-10 01:12:[address] [facility] Body height 2023-12-10 01:12:00 195.6 cm [facility] Body weight 2023-12-10 01:12:00 122.471 kg [facility] BMI 2023-12-10 01:12:00 32.02 kg/m2 [facility] Systolic blood pressure 2023-10-06 20:55:00 130 mm[Hg] Luz Maria Ingramybo ld - External Diastolic blood pressure 2023-10-06 20:55:00 80 mm[Hg] Luz Maria Ingramybo ld - External Heart rate 2023-10-06 20:14:00 98 /min Sallie armas Seybold - External Body temperature 2023-10-06 20:14:00 36.56 Cindi Luz Maria Ingramybold - External Respiratory rate 2023-10-06 20:14:00 18 /min Luz Maria Ingramybold - External Body height 2023-10-06 20:14:00 195.6 cm Kelsi ey Seybold - External Body weight 2023-10-06 20:14:00 127.007 kg Kelsi ey Seybold - External BMI 2023-10-06 20:14:00 33.20 kg/m2 Kelsi ey Seybold - External Oxygen saturation in Arterial blood by Pulse oximetry 2023-10-06 20:14:00 94 /min Luz Maria Semcjesus ld - External Systolic blood pressure 2023-08-04 05:38:00 164 mm[Hg] [facility] Diastolic blood pressure 2023-08-04 05:38:00 99 mm[Hg] [facility] Heart rate 2023-08-04 05:38:00 70 /min [facility] Body temperature 2023-08-04 05:38:[address] [facility] Respiratory rate 2023-08-04 05:38:00 18 /min [facility] Oxygen saturation in Arterial blood by Pulse oximetry 2023-08-04 05:38:00 98 /min [facility] Body height 2023-08-04 02:22:00 195.6 cm [facility] Body weight 2023-08-04 02:22:00 118.389 kg [facility] BMI 2023-08-04 02:22:00 30.95 kg/m2 [facility] Systolic blood pressure 2023-07-25 18:00:00 146 mm[Hg] [facility] Diastolic blood pressure 2023-07-25 18:00:00 90 mm[Hg] [facility] Heart rate 2023-07-25 18:00:00 75 /min [facility] Respiratory rate 2023-07-25 18:00:00 18 /min [facility] Oxygen saturation in Arterial blood by Pulse oximetry 2023-07-25 18:00:00 95 /min [facility] Body temperature 2023-07-25 15:57:[address] [facility] Body height 2023-07-25 15:57:00 195.6 cm [facility] Body weight 2023-07-25 15:57:00 118.842 kg [facility] BMI 2023-07-25 15:57:00 31.07 kg/m2 [facility] Systolic blood pressure 2023-07-24 21:05:00 140 mm[Hg] [facility] Diastolic blood pressure 2023-07-24 21:05:00 94 mm[Hg] [facility] Heart rate 2023-07-24 21:05:00 71 /min [facility] Body temperature 2023-07-24 21:05:[address] [facility] Respiratory rate 2023-07-24 21:05:00 18 /min [facility] Oxygen saturation in Arterial blood by Pulse oximetry 2023-07-24 21:05:00 97 /min [facility] Body weight 2023-07-24 18:35:00 115.667 kg [facility] BMI 2023-07-24 18:35:00 30.24 kg/m2 [facility] Systolic blood pressure 2023-07-12 03:30:00 156 mm[Hg] [facility] Diastolic blood pressure 2023-07-12 03:30:00 101 mm[Hg] [facility] Heart rate 2023-07-12 03:30:00 90 /min [facility] Respiratory rate 2023-07-12 03:30:00 20 /min [facility] Oxygen saturation in Arterial blood by Pulse oximetry 2023-07-12 03:30:00 94 /min [facility] Body temperature 2023-07-12 01:57:[address] [facility] Body weight 2023-07-12 01:57:00 115.667 kg [facility] BMI 2023-07-12 01:57:00 30.24 kg/m2 [facility] Systolic blood pressure 2023-07-10 13:34:00 140 mm[Hg] [facility] Diastolic blood pressure 2023-07-10 13:34:00 95 mm[Hg] [facility] Heart rate 2023-07-10 13:34:00 76 /min [facility] Body temperature 2023-07-10 13:34:[address] [facility] Body height 2023-07-10 13:34:00 195.6 cm [facility] Body weight 2023-07-10 13:34:00 118.298 kg [facility] BMI 2023-07-10 13:34:00 30.93 kg/m2 [facility] Oxygen saturation in Arterial blood by Pulse oximetry 2023-07-10 13:34:00 97 /min [facility] Systolic blood pressure 2023-07-08 13:43:00 140 [...] Systolic blood pressure 2023-07-03 12:45:10 149 mm[Hg] [facility] Diastolic blood pressure 2023-07-03 12:45:10 88 mm[Hg] [facility] Heart rate 2023-07-03 12:45:10 88 /min [facility] Respiratory rate 2023-07-03 12:45:10 16 /min [facility] Oxygen saturation in Arterial blood by Pulse oximetry 2023-07-03 12:45:10 97 /min [facility] Body temperature 2023-07-03 09:47:[address] [facility] Body height 2023-07-03 09:47:00 195.6 cm [facility] Body weight 2023-07-03 09:47:00 113.853 kg [facility] BMI 2023-07-03 09:47:00 29.76 kg/m2 [facility] Systolic blood pressure 2023-05-20 20:08:00 132 mm[Hg] Luz [facility] Riverao [facility] - External Diastolic blood pressure 2023-05-20 20:08:00 84 mm[Hg] [facility] - External Heart rate 2023-05-20 20:08:00 76 /min Sallie y ybold - External Body temperature 2023-05-20 20:08:00 37 Cindi Luz Maria Ingramybold - External Respiratory rate 2023-05-20 20:08:00 16 /min Luz Maria Ingramybold - External Body height 2023-05-20 20:08:00 195.6 cm Kelsi hampton Seybfarooq - External Body weight 2023-05-20 20:08:00 116.121 kg Kelsi hampton Seybold - External BMI 2023-05-20 20:08:00 30.36 kg/m2 Kelsi hampton Seybold - External Systolic blood pressure 2023-05-08 03:30:00 133 mm[Hg] [facility] Diastolic blood pressure 2023-05-08 03:30:00 87 mm[Hg] [facility] Heart rate 2023-05-08 03:30:00 70 /min [facility] Respiratory rate 2023-05-08 03:30:00 18 /min [facility] Oxygen saturation in Arterial blood by Pulse oximetry 2023-05-08 03:30:00 97 /min [facility] Body temperature 2023-05-07 22:36:[address] [facility] Body weight 2023-05-07 22:36:00 113.853 kg [facility] BMI 2023-05-07 22:36:00 30.55 kg/m2 [facility] Systolic blood pressure 2023-05-02 05:00:00 134 mm[Hg] [facility] Diastolic blood pressure 2023-05-02 05:00:00 85 mm[Hg] [facility] Heart rate 2023-05-02 05:00:00 72 /min [facility] Oxygen saturation in Arterial blood by Pulse oximetry 2023-05-02 05:00:00 98 /min [facility] Body temperature 2023-05-02 02:28:[address] [facility] Respiratory rate 2023-05-02 02:28:00 20 /min [facility] Body height 2023-05-02 02:28:00 193 cm [facility] Body weight 2023-05-02 02:28:00 113.399 kg [facility] BMI 2023-05-02 02:28:00 30.43 kg/m2 [facility] Systolic blood pressure 2023-04-22 18:02:36 130 mm[Hg] [facility] Diastolic blood pressure 2023-04-22 18:02:36 80 mm[Hg] [facility] Heart rate 2023-04-22 18:02:36 68 /min [facility] Body temperature 2023-04-22 18:02:[address] [facility] Respiratory rate 2023-04-22 18:02:36 17 /min [facility] Oxygen saturation in Arterial blood by Pulse oximetry 2023-04-22 18:02:36 96 /min [facility] Body height 2023-04-22 08:58:00 195.6 cm [facility] Body weight 2023-04-22 08:58:00 113.944 kg [facility] BMI 2023-04-22 08:58:00 29.79 kg/m2 [facility] Systolic blood pressure 2023-04-16 13:30:00 142 mm[Hg] [facility] Diastolic blood pressure 2023-04-16 13:30:00 98 mm[Hg] [facility] Heart rate 2023-04-16 13:30:00 65 /min [facility] Respiratory rate 2023-04-16 13:30:00 17 /min [facility] Oxygen saturation in Arterial blood by Pulse oximetry 2023-04-16 13:30:00 98 /min [facility] Systolic blood pressure 2023-04-16 12:32:00 155 mm[Hg] [facility] Diastolic blood pressure 2023-04-16 12:32:00 108 mm[Hg] [facility] Heart rate 2023-04-16 12:32:00 61 /min [facility] Respiratory rate 2023-04-16 12:32:00 18 /min [facility] Oxygen saturation in Arterial blood by Pulse oximetry 2023-04-16 12:32:00 97 /min [facility] Body temperature 2023-04-16 12:09:[address] [facility] Body weight 2023-04-16 12:09:00 118.842 kg [facility] BMI 2023-04-16 12:09:00 31.89 kg/m2 [facility] Systolic blood pressure 2023-04-01 08:00:00 130 mm[Hg] [facility] Diastolic blood pressure 2023-04-01 08:00:00 75 mm[Hg] [facility] Heart rate 2023-04-01 08:00:00 75 /min [facility] Respiratory rate 2023-04-01 08:00:00 19 /min [facility] Oxygen saturation in Arterial blood by Pulse oximetry 2023-04-01 08:00:00 96 /min [facility] Body temperature 2023-04-01 05:02:[address] [facility] Body height 2023-04-01 05:02:00 193 cm [facility] Body weight 2023-04-01 05:02:00 111.585 kg [facility] BMI 2023-04-01 05:02:00 29.94 kg/m2 [facility] Systolic blood pressure 2023-02-13 21:00:00 157 mm[Hg] [facility] Diastolic blood pressure 2023-02-13 21:00:00 89 mm[Hg] [facility] Heart rate 2023-02-13 21:00:00 102 /min [facility] Body temperature 2023-02-13 21:00:[address] [facility] Respiratory rate 2023-02-13 21:00:00 16 /min [facility] Body weight 2023-02-13 21:00:00 124.286 kg [facility] BMI 2023-02-13 21:00:00 33.35 kg/m2 [facility] Oxygen saturation in Arterial blood by Pulse oximetry 2023-02-13 21:00:00 97 /min [facility] Systolic blood pressure 2022-12-09 06:33:00 152 mm[Hg] [facility] Diastolic blood pressure 2022-12-09 06:33:00 96 mm[Hg] [facility] Heart rate 2022-12-09 06:33:00 60 /min [facility] Respiratory rate 2022-12-09 06:33:00 11 /min [facility] Oxygen saturation in Arterial blood by Pulse oximetry 2022-12-09 06:33:00 96 /min [facility] Body temperature 2022-12-09 04:51:[address] [facility] Body height 2022-12-09 04:51:00 193 cm [facility] Body weight 2022-12-09 04:51:00 116.121 kg [facility] BMI 2022-12-09 04:51:00 31.16 kg/m2 [facility] Systolic blood pressure 2022-11-25 04:51:00 148 mm[Hg] [facility] Diastolic blood pressure 2022-11-25 04:51:00 96 mm[Hg] [facility] Heart rate 2022-11-25 04:51:00 71 /min [facility] Body temperature 2022-11-25 04:51:[address] [facility] Respiratory rate 2022-11-25 04:51:00 16 /min [facility] Body height 2022-11-25 04:51:00 193 cm [facility] Body weight 2022-11-25 04:51:00 113.399 kg [facility] BMI 2022-11-25 04:51:00 30.43 kg/m2 [facility] Oxygen saturation in Arterial blood by Pulse oximetry 2022-11-25 04:51:00 97 /min [facility] Systolic blood pressure 2022-10-12 21:48:00 152 mm[Hg] [facility] Diastolic blood pressure 2022-10-12 21:48:00 82 mm[Hg] [facility] Heart rate 2022-10-12 21:48:00 70 /min [facility] Body temperature 2022-10-12 21:48:[address] [facility] Respiratory rate 2022-10-12 21:48:00 18 /min [facility] Oxygen saturation in Arterial blood by Pulse oximetry 2022-10-12 21:48:00 94 /min [facility] Body height 2022-10-11 17:50:00 193 cm [facility] Body weight 2022-10-11 17:50:00 113.399 kg [facility] BMI 2022-10-11 17:50:00 30.43 kg/m2 [facility] Systolic blood pressure 2022-10-09 07:25:23 138 mm[Hg] [facility] Diastolic blood pressure 2022-10-09 07:25:23 86 mm[Hg] [facility] Heart rate 2022-10-09 07:25:23 73 /min [facility] Respiratory rate 2022-10-09 07:25:23 20 /min [facility] Oxygen saturation in Arterial blood by Pulse oximetry 2022-10-09 07:25:23 98 /min [facility] Body temperature 2022-10-09 04:12:[address] [facility] Body height 2022-10-09 04:12:00 193 cm [facility] Body weight 2022-10-09 04:12:00 113.399 kg [facility] BMI 2022-10-09 04:12:00 30.43 kg/m2 [facility] Systolic blood pressure 2022-08-20 14:40:00 147 mm[Hg] [facility] Diastolic blood pressure 2022-08-20 14:40:00 95 mm[Hg] [facility] Heart rate 2022-08-20 14:40:00 75 /min [facility] Body temperature 2022-08-20 14:40:[address] [facility] Respiratory rate 2022-08-20 14:40:00 20 /min [facility] Body height 2022-08-20 14:40:00 190.5 cm [facility] Body weight 2022-08-20 14:40:00 115.667 kg [facility] BMI 2022-08-20 14:40:00 31.87 kg/m2 [facility] Oxygen saturation in Arterial blood by Pulse oximetry 2022-08-20 14:40:00 98 /min [facility] height 2022-07-11 09:30:00 77 [in_i] Commo n [facility] weight 2022-07-11 09:30:00 253.6 [lb_av] Co mmon [facility] temperature 2022-07-11 09:30:00 98.3 [degF] Com mon [facility] bmi 2022-07-11 09:30:00 30.07 kg/m2 Comm on [facility] oximetry 2022-07-11 09:30:00 99 % Commo n [facility] respiratory rate 2022-07-11 09:30:00 18 /min [facility] blood pressure systolic 2022-07-11 09:30:00 135 mm[Hg] [facility] blood pressure diastolic 2022-07-11 09:30:00 81 mm[Hg] [facility] Systolic blood pressure 2022-06-09 15:00:00 141 mm[Hg] [facility] Diastolic blood pressure 2022-06-09 15:00:00 94 mm[Hg] [facility] Heart rate 2022-06-09 15:00:00 59 /min [facility] Respiratory rate 2022-06-09 15:00:00 16 /min [facility] Oxygen saturation in Arterial blood by Pulse oximetry 2022-06-09 15:00:00 97 /min [facility] Body temperature 2022-06-09 11:56:[address] [facility] Body height 2022-06-09 11:56:00 195.6 cm [facility] Body weight 2022-06-09 11:56:00 127.007 kg [facility] BMI 2022-06-09 11:56:00 33.20 kg/m2 [facility] Systolic blood pressure 2021-11-01 17:12:00 152 mm[Hg] [facility] Diastolic blood pressure 2021-11-01 17:12:00 89 mm[Hg] [facility] Heart rate 2021-11-01 17:12:00 72 /min [facility] Body temperature 2021-11-01 17:12:[address] [facility] Respiratory rate 2021-11-01 17:12:00 18 /min [facility] Oxygen saturation in Arterial blood by Pulse oximetry 2021-11-01 17:12:00 94 /min [facility] Body height 2021-10-30 23:19:00 195.6 cm [facility] Body weight 2021-10-30 23:19:00 116.983 kg [facility] BMI 2021-10-30 23:19:00 30.58 kg/m2 [facility] Systolic blood pressure 2021-05-24 06:00:00 135 mm[Hg] [facility] Diastolic blood pressure 2021-05-24 06:00:00 97 mm[Hg] [facility] Heart rate 2021-05-24 06:00:00 88 [facility] Respiratory rate 2021-05-24 06:00:00 21 /min [facility] Oxygen saturation in Arterial blood by Pulse oximetry 2021-05-24 06:00:00 94 /min [facility] Body temperature 2021-05-24 01:47:[address] [facility] Body height 2021-05-24 01:47:00 195.6 cm [facility] Body weight 2021-05-24 01:47:00 127.461 kg [facility] BMI 2021-05-24 01:47:00 33.32 kg/m2 [facility] Systolic blood pressure 2021-05-22 23:36:00 154 mm[Hg] [facility] Diastolic blood pressure 2021-05-22 23:36:00 112 mm[Hg] [facility] Heart rate 2021-05-22 23:36:00 97 /min [facility] Body temperature 2021-05-22 23:36:[address] [facility] Respiratory rate 2021-05-22 23:36:00 19 /min [facility] Body height 2021-05-22 23:36:00 195.6 cm [facility] Body weight 2021-05-22 23:36:00 127.007 kg [facility] BMI 2021-05-22 23:36:00 33.20 kg/m2 [facility] Oxygen saturation in Arterial blood by Pulse oximetry 2021-05-22 23:36:00 96 /min [facility] Systolic blood pressure 2021-05-02 00:01:00 157 mm[Hg] [facility] Diastolic blood pressure 2021-05-02 00:01:00 93 mm[Hg] [facility] Heart rate 2021-05-02 00:01:00 84 /min [facility] Body temperature 2021-05-02 00:01:[address] [facility] Respiratory rate 2021-05-02 00:01:00 18 /min [facility] Body weight 2021-05-02 00:01:00 126.554 kg [facility] BMI 2021-05-02 00:01:00 33.08 kg/m2 [facility] Oxygen saturation in Arterial blood by Pulse oximetry 2021-05-02 00:01:00 97 /min [facility] Systolic blood pressure 2021-04-02 01:01:00 144 mm[Hg] [facility] Diastolic blood pressure 2021-04-02 01:01:00 94 mm[Hg] [facility] Heart rate 2021-04-02 01:01:00 89 /min [facility] Body temperature 2021-04-02 01:01:[address] [facility] Respiratory rate 2021-04-02 01:01:00 18 /min [facility] Body weight 2021-04-02 01:01:00 129.729 kg [facility] BMI 2021-04-02 01:01:00 33.91 kg/m2 [facility] Oxygen saturation in Arterial blood by Pulse oximetry 2021-04-02 01:01:00 100 /min [facility] Systolic blood pressure 2021-04-02 01:01:00 144 mm[Hg] [facility] Diastolic blood pressure 2021-04-02 01:01:00 94 mm[Hg] [facility] Heart rate 2021-04-02 01:01:00 89 /min [facility] Body temperature 2021-04-02 01:01:[address] [facility] Respiratory rate 2021-04-02 01:01:00 18 /min [facility] Body weight 2021-04-02 01:01:00 129.729 kg [facility] BMI 2021-04-02 01:01:00 33.91 kg/m2 [facility] Oxygen saturation in Arterial blood by Pulse oximetry 2021-04-02 01:01:00 100 /min [facility] Systolic blood pressure 2021-03-18 03:16:13 140 mm[Hg] [facility] Diastolic blood pressure 2021-03-18 03:16:13 80 mm[Hg] [facility] Heart rate 2021-03-18 03:16:13 80 /min [facility] Body temperature 2021-03-18 03:16:[address] [facility] Respiratory rate 2021-03-18 03:16:13 19 /min [facility] Oxygen saturation in Arterial blood by Pulse oximetry 2021-03-18 03:16:13 99 /min [facility] Body weight 2021-03-18 01:02:00 129.729 kg [facility] BMI 2021-03-18 01:02:00 33.91 kg/m2 [facility] Systolic blood pressure 2021-03-18 03:16:13 140 mm[Hg] [facility] Diastolic blood pressure 2021-03-18 03:16:13 80 mm[Hg] [facility] Heart rate 2021-03-18 03:16:13 80 /min [facility] Body temperature 2021-03-18 03:16:[address] [facility] Respiratory rate 2021-03-18 03:16:13 19 /min [facility] Oxygen saturation in Arterial blood by Pulse oximetry 2021-03-18 03:16:13 99 /min [facility] Body weight 2021-03-18 01:02:00 129.729 kg [facility] BMI 2021-03-18 01:02:00 33.91 kg/m2 [facility] Oxygen saturation in Arterial blood by Pulse oximetry 2020-11-15 04:31:00 97 /min [facility] Systolic blood pressure 2020-11-15 03:25:00 173 mm[Hg] [facility] Diastolic blood pressure 2020-11-15 03:25:00 97 mm[Hg] [facility] Heart rate 2020-11-15 03:25:00 84 /min [facility] Body temperature 2020-11-15 03:25:[address] [facility] Respiratory rate 2020-11-15 03:25:00 20 /min [facility] Body weight 2020-11-15 03:25:00 132.45 kg [facility] BMI 2020-11-15 03:25:00 34.63 kg/m2 [facility] Oxygen saturation in Arterial blood by Pulse oximetry 2020-11-15 04:31:00 97 /min [facility] Systolic blood pressure 2020-11-15 03:25:00 173 mm[Hg] [facility] Diastolic blood pressure 2020-11-15 03:25:00 97 mm[Hg] [facility] Heart rate 2020-11-15 03:25:00 84 /min [facility] Body temperature 2020-11-15 03:25:[address] [facility] Respiratory rate 2020-11-15 03:25:00 20 /min [facility] Body weight 2020-11-15 03:25:00 132.45 kg [facility] BMI 2020-11-15 03:25:00 34.63 kg/m2 [facility] Systolic blood pressure 2020-09-30 16:30:00 121 mm[Hg] [facility] Diastolic blood pressure 2020-09-30 16:30:00 66 mm[Hg] [facility] Heart rate 2020-09-30 16:30:00 72 /min [facility] Respiratory rate 2020-09-30 16:30:00 19 /min [facility] Oxygen saturation in Arterial blood by Pulse oximetry 2020-09-30 16:30:00 94 /min [facility] Body weight 2020-09-30 14:20:00 136.079 kg [facility] BMI 2020-09-30 14:20:00 35.57 kg/m2 [facility] Body temperature 2020-09-30 14:10:[address] [facility] Systolic blood pressure 2020-09-30 16:30:00 121 mm[Hg] [facility] Diastolic blood pressure 2020-09-30 16:30:00 66 mm[Hg] [facility] Heart rate 2020-09-30 16:30:00 72 /min [facility] Respiratory rate 2020-09-30 16:30:00 19 /min [facility] Oxygen saturation in Arterial blood by Pulse oximetry 2020-09-30 16:30:00 94 /min [facility] Body weight 2020-09-30 14:20:00 136.079 kg [facility] BMI 2020-09-30 14:20:00 35.57 kg/m2 [facility] Body temperature 2020-09-30 14:10:[address] [facility] Systolic blood pressure 2020-07-02 04:00:00 132 mm[Hg] [facility] Diastolic blood pressure 2020-07-02 04:00:00 84 mm[Hg] [facility] Heart rate 2020-07-02 04:00:00 89 /min [facility] Oxygen saturation in Arterial blood by Pulse oximetry 2020-07-02 04:00:00 95 /min [facility] Body temperature 2020-07-02 02:53:[address] [facility] Respiratory rate 2020-07-02 02:53:00 18 /min [facility] Body height 2020-07-02 02:53:00 195.6 cm [facility] Body weight 2020-07-02 02:53:00 136.079 kg [facility] BMI 2020-07-02 02:53:00 35.57 kg/m2 [facility] Systolic blood pressure 2020-07-02 04:00:00 132 mm[Hg] [facility] Diastolic blood pressure 2020-07-02 04:00:00 84 mm[Hg] [facility] Heart rate 2020-07-02 04:00:00 89 [facility]terial blood by Pulse oximetry 2020-07-02 04:00:00 95 /min [facility] Body temperature 2020-07-02 02:53:[address] [facility] Respiratory rate 2020-07-02 02:53:00 18 /min [facility] Body height 2020-07-02 02:53:00 195.6 cm [facility] Body weight 2020-07-02 02:53:00 136.079 kg [facility] BMI 2020-07-02 02:53:00 35.57 kg/m2 [facility] BP Systolic 2022-07-09 10:22:00 158 mm[Hg] BP Diastolic 2022-07-09 10:22:00 95 mm[Hg] Weight Measured 2022-07-09 10:22:00 261.40 pounds Height Measured 2022-07-09 10:22:00 77.00 inches Body Temperature 2022-07-09 10:22:00 98.00 degrees Heart Rate 2022-07-09 10:22:00 60.00 /min Respiratory Rate 2022-07-09 10:22:00 16.00 /min Respiratory Rate 2021-11-20 17:16:00 17.00 /min BP Systolic 2021-11-20 17:16:00 144 mm[Hg] BP Diastolic 2021-11-20 17:16:00 89 mm[Hg] Weight Measured 2021-11-20 17:16:00 276.40 pounds Height Measured 2021-11-20 17:16:00 77.00 inches Body Temperature 2021-11-20 17:16:00 98.30 degrees Heart Rate 2021-11-20 17:16:00 86.00 /min BP Systolic 2021-10-17 16:20:00 157 mm[Hg] [...] Date / Time Performed Performing Clinician Source LIPASE 2024-02-21 03:08:00 Leti Rivas [facility] COMP. METABOLIC PANEL ([id number]) 2024-02-21 03:08:[address] [facility] CBC WITH DIFF 2024-02-21 03:08:00 Leti Rivas [facility] URINALYSIS 2024-02-21 03:08:00 eLti Rivas [facility] CT ABDOMEN PELVIS W CONTRAST 2023-12-10 02:36:[address] [facility] COMP. METABOLIC PANEL ([id number]) 2023-12-10 02:05:[address] [facility] CBC WITH DIFF 2023-12-10 02:05:00 Abraham Orantes [facility] URINALYSIS 2023-12-10 02:05:00 Abraham Orantes [facility] CT ABDOMEN PELVIS WO CONTRAST 2023-08-04 04:23:[address] [facility] BASIC METABOLIC PANEL (NA, K, CL, CO2, GLUCOSE, BUN, CREATININE, CA) 2023-08-04 02:57:[address] [facility] CBC WITH DIFF 2023-08-04 02:57:00 Abraham Orantes [facility] URINALYSIS 2023-08-04 02:57:00 Abraham Orantes [facility] NOTICE OF PRIVACY PRACTICES 2023-08-04 02:16:09 Doctor Unassigned, [place] [facility] CONSENT/REFUSAL FOR DIAGNOSIS AND TREATMENT 2023-08-04 02:15:41 Doctor Unassigned, [place] [facility] LIPASE 2023-07-25 16:37:00 Trevor Taylor [facility] MAGNESIUM 2023-07-25 16:37:00 Trevor Taylor [facility] TROPONIN I 2023-07-25 16:37:00 Trevor Taylor [facility] COMP. METABOLIC PANEL ([id number]) 2023-07-25 16:37:[address] [facility] CBC WITH DIFF 2023-07-25 16:37:00 Trevor Taylor [facility] URINALYSIS 2023-07-25 16:37:00 [facility] CONSENT/REFUSAL FOR DIAGNOSIS AND TREATMENT 2023-07-25 15:41:41 Doctor Unassigned, [place] [facility] US GALL BLADDER 2023-07-24 22:46:02 Johnathan Avila [facility] URINALYSIS 2023-07-24 20:10:[address] [facility] EXTRA TUBE URINE CULTURE 2023-07-24 20:10:[address] [facility] LIPASE 2023-07-24 20:09:[address] [facility] COMP. METABOLIC PANEL ([id number]) 2023-07-24 20:09:[address] [facility] LIPID PANEL ([id number])(TOTAL CHOLESTEROL, TRIGLYCERIDES, HDL) 2023-07-24 20:09:[address] [facility] CBC WITH DIFF 2023-07-24 20:09:[address] [facility] CONSENT/REFUSAL FOR DIAGNOSIS AND TREATMENT 2023-07-24 18:31:11 Doctor Unassigned, [place] [facility] XR CHEST 2 VW 2023-07-12 03:54:00 [facility]23-07-12 02:31:00 [facility] 2023-07-12 02:14:00 Norm Saleh [facility] COMP. METABOLIC PANEL ([id number]) 2023-07-12 02:14:[address] [facility] CBC WITH DIFF 2023-07-12 02:14:00 Norm Saleh [facility] COVID-19 (ID NOW RAPID TESTING) 2023-07-12 02:14:[address] [facility] CONSENT/REFUSAL FOR DIAGNOSIS AND TREATMENT 2023-07-12 01:47:09 Doctor Unassigned, [place] [facility] CONSENT FOR MEDICAL TREATMENT OF A MINOR 2023-07-10 05:01:00 Doctor Unassigned, [place] [facility] CT ABDOMEN PELVIS W CONTRAST 2023-07-03 10:43:[address] [facility] URINALYSIS 2023-07-03 10:23:[address] [facility] LIPASE 2023-07-03 10:11:[address] [facility] COMP. METABOLIC PANEL ([id number]) 2023-07-03 10:11:[address] [facility] CBC WITH DIFF 2023-07-03 10:11:[address] [facility] CONSENT/REFUSAL FOR DIAGNOSIS AND TREATMENT 2023-07-03 09:36:41 Doctor Unassigned, [place] [facility] CT ABDOMEN PELVIS W CONTRAST 2023-05-08 02:15:59 Riya Joseph [facility] HB ABO GROUPING 2023-05-08 01:25:00 Elvin Joseph [facility] LIPASE 2023-05-08 01:19:00 Elvin Joseph [facility] COMP. METABOLIC PANEL ([id number]) 2023-05-08 01:19:00 Jake Riya [facility] CBC WITH DIFF 2023-05-08 01:19:00 Elvin Joseph [facility] COVID-19 (ID NOW RAPID TESTING) 2023-05-08 01:19:00 Jake Riya [facility] CONSENT/REFUSAL FOR DIAGNOSIS AND TREATMENT 2023-05-07 22:22:14 Doctor Unassigned, [place] [facility] LIPASE 2023-05-02 03:01:00 [facility] COMP. METABOLIC PANEL ([id number]) 2023-05-02 03:01:[address] [facility] ETHANOL 2023-05-02 03:01:00 Aydin Matos [facility] CBC WITH DIFF 2023-05-02 03:01:00 Aydin Matos [facility] URINALYSIS 2023-05-02 03:01:00 [facility] URINE DRUG (IMMUNOASSAY) - COMPREHENSIVE DRUG SCREEN W/O REFLEX 2023-05-02 03:01:[address] [facility] CONSENT/REFUSAL FOR DIAGNOSIS AND TREATMENT 2023-05-02 02:28:20 Doctor Unassigned, [place] [facility] BASIC METABOLIC PANEL (NA, K, CL, CO2, GLUCOSE, BUN, CREATININE, CA) 2023-04-22 16:47:[address] [facility] LIPASE 2023-04-22 12:58:00 Natali Alexander [facility] BASIC METABOLIC PANEL (NA, K, CL, CO2, GLUCOSE, BUN, CREATININE, CA) 2023-04-22 12:58:[address] [facility] URINALYSIS 2023-04-22 11:44:00 Abraham Oratnes [facility] CREATINE KINASE 2023-04-22 09:06:00 Benjamin [facility] LIPASE 2023-04-22 09:06:00 Natali Alexander [facility] COMP. METABOLIC PANEL ([id number]) 2023-04-22 09:06:[address] [facility] CBC WITH DIFF 2023-04-22 09:06:00 Abraham Orantes [facility] CONSENT/REFUSAL FOR DIAGNOSIS AND TREATMENT 2023-04-22 08:52:58 Doctor Unassigned, [place] [facility] LIPASE 2023-04-16 12:30:00 Christa [facility] TROPONIN I 2023-04-16 12:30:00 Christa [facility] COMP. METABOLIC PANEL ([id number]) 2023-04-16 12:30[facility] 2023-04-16 12:30:00 Adelaide Goodwin [facility] CONSENT/REFUSAL FOR DIAGNOSIS AND TREATMENT 2023-04-16 11:48:23 Doctor Unassigned, [place] [facility] LIPASE 2023-04-01 05:08:00 [facility] TROPONIN I 2023-04-01 05:08:00 Hemalatha [facility] COMP. METABOLIC PANEL ([id number]) 2023-04-01 05:08:[address] [facility] CBC WITH DIFF 2023-04-01 05:08:00 Hemalatha Mora [facility] URINALYSIS 2023-04-01 05:08:00 Hemalatha Morae [facility] CONSENT/REFUSAL FOR DIAGNOSIS AND TREATMENT 2023-04-01 04:51:45 Doctor Unassigned, [place] [facility] ASSIGNMENT OF BENEFITS 2023-02-13 21:19:49 Docto r Unassigned, [place] [facility] POCT GLUCOSE (AUTOMATED) 2023-02-13 21:00:[address] [facility] CONSENT/REFUSAL FOR DIAGNOSIS AND TREATMENT 2023-02-13 20:50:30 Doctor Unassigned, [place] [facility] REFERRAL- REQUEST/RESPONSE 2023-01-05 05:01:00 Doctor Unassigned, [place] [facility] LIPASE 2022-12-09 05:03:00 Soham Clarke [facility] COMP. METABOLIC PANEL ([id number]) 2022-12-09 05:03:[address] [facility] CBC WITH DIFF 2022-12-09 05:03:00 [facility] 2022-12-09 05:03:00 Soham Clarke [facility] NOTICE OF PRIVACY PRACTICES 2022-12-09 04:46:36 Doctor Unassigned, [place] [facility] CONSENT/REFUSAL FOR DIAGNOSIS AND TREATMENT 2022-12-09 04:46:16 Doctor Unassigned, [place] [facility] CT ABDOMEN PELVIS W CONTRAST 2022-11-25 05:38:[address] [facility] LIPASE 2022-11-25 05:06:00 [facility]EL ([id number]) (ALB,T.PRO,BILI T,BU/BC,ALT,AST,ALK PHOS) 2022-11-25 05:06:[address] [facility] BASIC METABOLIC PANEL (NA, K, CL, CO2, GLUCOSE, BUN, CREATININE, CA) 2022-11-25 05:06:[address] [facility] CBC WITH DIFF 2022-11-25 05:06:00 Lion [facility] URINALYSIS 2022-11-25 05:06:00 [facility] CONSENT/REFUSAL FOR DIAGNOSIS AND TREATMENT 2022-11-25 04:35:51 Doctor Unassigned, [place] [facility] EXTERNAL PROVIDER RECORDS 2022-10-23 06:01:00 Do ctor Unassigned, [place] [facility] CBC WITH DIFF 2022-10-12 21:26:00 Lb Bates [facility] PROSTATIC SPECIFIC ANTIGEN 2022-10-12 10:48:[address] [facility] HEPATIC FUNCTION PANEL ([id number]) (ALB,T.PRO,BILI T,BU/BC,ALT,AST,ALK PHOS) 2022-10-12 10:48:00 Jana [facility] BASIC METABOLIC PANEL (NA, K, CL, CO2, GLUCOSE, BUN, CREATININE, CA) 2022-10-12 10:48:[address] [facility] CBC WITH DIFF 2022-10-12 10:48:00 Lb Bates [facility] HEPATIC FUNCTION PANEL ([id number]) (ALB,T.PRO,BILI T,BU/BC,ALT,AST,ALK PHOS) 2022-10-11 23:53:[address] [facility] BASIC METABOLIC PANEL (NA, K, CL, CO2, GLUCOSE, BUN, CREATININE, CA) 2022-10-11 23:53:[address] [facility] US GALL BLADDER 2022-10-11 22:28:58 Jaan [facility] ABORH CONFIRMATION (LAB ONLY) 2022-10-11 21:24:00 Jana [facility] URINALYSIS 2022-10-11 21:23:00 Lb Bates [facility] HB ABO GROUPING 2022-10-11 20:41:00 Jana [facility] CBC WITH DIFF 2022-10-11 20:35:00 [facility]PELVIS 2022-10-11 14:52:[address] [facility] HB ECG ROUTINE & RHYTHM STRIP 2022-10-11 13:48:[address] [facility] LIPASE 2022-10-11 13:42:00 [facility] TROPONIN I 2022-10-11 13:42:00 Aydin Matos [facility] COMP. METABOLIC PANEL ([id number]) 2022-10-11 13:42:[address] [facility] LIPID PANEL ([id number])(TOTAL CHOLESTEROL, TRIGLYCERIDES, HDL) 2022-10-11 13:42:[address] [facility] CBC WITH DIFF 2022-10-11 13:42:00 Aydin Matos [facility] PROTHROMBIN TIME / INR 2022-10-11 13:42:[address] [facility] ACTIVATED PARTIAL THRMPLAS TAE 2022-10-11 13:42:[address] [facility] N-TERMINAL PRO-BNP 2022-10-11 13:42:[address] [facility] URINE DRUG (IMMUNOASSAY) - COMPREHENSIVE DRUG SCREEN W/O REFLEX 2022-10-11 13:42:[address] [facility] CONSENT/REFUSAL FOR DIAGNOSIS AND TREATMENT 2022-10-11 12:24:48 Doctor Unassigned, [place] [facility] CT ABDOMEN PELVIS W CONTRAST 2022-10-09 06:30:[address] [facility] LIPASE 2022-10-09 05:24:00 Abraham Orantes [facility] COMP. METABOLIC PANEL ([id number]) 2022-10-09 05:24:[address] [facility] CBC WITH DIFF 2022-10-09 05:24:00 Abraham Orantes [facility] URINALYSIS 2022-10-09 05:24:00 Abraham Orantes [facility] CONSENT/REFUSAL FOR DIAGNOSIS AND TREATMENT 2022-10-09 03:56:57 Doctor Unassigned, [place] [facility] COMP. METABOLIC PANEL ([id number]) 2022-08-20 15:11:[address] [facility] CBC WITH DIFF 2022-08-20 15:11:00 Trevor Taylor [facility] URINALYSIS 2022-08-20 15:11:00 [facility] CONSENT/REFUSAL FOR DIAGNOSIS AND TREATMENT 2022-08-20 14:32:58 Doctor Unassigned, [place] [facility] CT ABDOMEN PELVIS W CONTRAST 2022-06-09 13:12:[address] [facility] LIPASE 2022-06-09 12:48:00 Soham Clarke [facility] COMP. METABOLIC PANEL ([id number]) 2022-06-09 12:48:[address] [facility] CBC WITH DIFF 2022-06-09 12:48:00 [facility] 2022-06-09 12:48:00 Soham Clarke [facility] NOTICE OF PRIVACY PRACTICES 2022-06-09 11:47:39 Doctor Unassigned, [place] [facility] CONSENT/REFUSAL FOR DIAGNOSIS AND TREATMENT 2022-06-09 11:47:18 Doctor Unassigned, [place] [facility] PHOSPHORUS 2021-11-01 09:55:00 Jerrica Sexton [facility] MAGNESIUM 2021-11-01 09:55:00 Jer[facility] BASIC METABOLIC PANEL (NA, K, CL, CO2, GLUCOSE, BUN, CREATININE, CA) 2021-11-01 09:55:[address] [facility] CBC WITH DIFF 2021-11-01 09:55:00 Jerrica Sexton [facility] PHOSPHORUS 2021-10-31 08:45:00 [facility]IN[facility] 2021-10-31 08:45:00 Roxanne Swenson [facility] MAGNESIUM 2021-10-31 08:45:00 Emelia Glalego [facility] TROPONIN I 2021-10-31 08:45:00 Roxanne Swenson [facility] COMP. METABOLIC PANEL ([id number]) 2021-10-31 08:45:[address] [facility] CBC WITH DIFF 2021-10-31 08:45:00 Emelia Gallego [facility] PROTHROMBIN TIME / INR 2021-10-31 08:45:[address] [facility] N-TERMINAL PRO-BNP 2021-10-31 08:45:[address] [facility] LACTIC ACID WHOLE BLOOD 2021-10-31 08:45:[address] [facility] FECES CULTURE 2021-10-30 22:27:00 Monica Hernandez [facility] OCCULT (GUAIAC) BLOOD 2021-10-30 22:27:[address] [facility] CLOSTRIDIUM DIFFICILE TOXIN 2021-10-30 22:27:[address] [facility] COVID-19 (ID NOW RAPID TESTING) 2021-10-30 21:24:[address] [facility] LAB ONLY COVID INTERPRETATION 2021-10-30 21:24:[address] [facility] CT ABDOMEN PELVIS W CONTRAST 2021-10-30 20:44:[address] [facility] LIPASE 2021-10-30 20:25:00 Madison [facility] 2021-10-30 20:25:00 Roxanne Swenson [facility] COMP. METABOLIC PANEL ([id number]) 2021-10-30 20:25:[address] [facility] CBC WITH DIFF 2021-10-30 20:25:[address] [facility] URINALYSIS 2021-10-30 20:25:00 Madison Sepulveda [facility] N-TERMINAL PRO-BNP 2021-10-30 20:25:[address] [facility] CONSENT/REFUSAL FOR DIAGNOSIS AND TREATMENT 2021-10-30 19:24:05 Doctor Unassigned, [place] [facility] CREATINE KINASE 2021-05-24 04:40:00 Felipe Ortega [facility] BASIC METABOLIC PANEL (NA, K, CL, CO2, GLUCOSE, BUN, CREATININE, CA) 2021-05-24 04:40:[address] [facility] URINALYSIS 2021-05-24 02:14:00 Felipe Ortega [facility] CREATINE KINASE 2021-05-24 01:53:00 Felipe Ortega [facility] TROPONIN I 2021-05-24 01:53:00 Felipe Ortega [facility] COMP. METABOLIC PANEL ([id number]) 2021-05-24 01:53:[address] [facility] CBC WITH DIFF 2021-05-24 01:53:00 Felipe Ortega [facility] N-TERMINAL PRO-BNP 2021-05-24 01:53:[address] [facility] ASSIGNMENT OF BENEFITS 2021-05-23 00:46:04 Docto r Unassigned, [place] [facility] CONSENT/REFUSAL FOR DIAGNOSIS AND TREATMENT 2021-05-22 23:31:57 Doctor Unassigned, [place] [facility] SARS-COV-2 COVID-19 VACCINE,0.3ML,IM (PFIZER) 2021-05-07 16:12:40 Doctor Unassigned, [place] [facility] RAPID STREP SCREEN FOR GROUP A 2021-05-02 00:07:[address] [facility] COVID-19 (ID NOW RAPID TESTING) 2021-05-02 00:07:[address] [facility] CONSENT/REFUSAL FOR DIAGNOSIS AND TREATMENT 2021-05-01 23:56:07 Doctor Unassigned, [place] [facility] RAPID STREP SCREEN FOR GROUP A 2021-04-02 01:05:[address] [facility] COVID-19 (ID NOW RAPID TESTING) 2021-04-02 01:05:[address] [facility] NOTICE OF PRIVACY PRACTICES 2021-04-02 00:56:18 Doctor Unassigned, [place] [facility] CONSENT/REFUSAL FOR DIAGNOSIS AND TREATMENT 2021-04-02 00:49:05 Doctor Unassigned, [place] [facility] XR WRIST 3+ VW LEFT 2021-03-18 01:19:59 Destini Blanton [facility] URINALYSIS 2021-03-18 01:12:00 Nikhil Blanton [facility] CONSENT/REFUSAL FOR DIAGNOSIS AND TREATMENT 2021-03-18 00:56:01 Doctor Unassigned, [place] [facility] XR CHEST 1 VW 2020-11-15 03:48:28 Darnell Hsu [facility] CONSENT/REFUSAL FOR DIAGNOSIS AND TREATMENT 2020-11-15 03:11:27 Doctor Unassigned, [place] [facility] CT HEAD WO CONTRAST 2020-09-30 15:00:[address] [facility] XR CHEST 1 VW 2020-09-30 14:37:13 Jessy Siddiqui [facility] LIPASE 2020-09-30 14:25:00 Jessy Siddiqui [facility] TROPONIN I 2020-09-30 14:25:00 Jessy Siddiqui [facility] COMP. METABOLIC PANEL ([id number]) 2020-09-30 14:25:[address] [facility] CBC WITH DIFF 2020-09-30 14:25:00 Jessy Siddiqui U [facility] N-TERMINAL PRO-BNP 2020-09-30 14:25:[address] [facility] NOTICE OF PRIVACY PRACTICES 2020-09-30 13:57:13 Doctor Unassigned, [place] [facility] CONSENT/REFUSAL FOR DIAGNOSIS AND TREATMENT 2020-09-30 13:55:57 Doctor Unassigned, [place] [facility] EKG-12 LEAD 2020-07-02 03:20:42 Felipe Ortega [facility] LIPASE 2020-07-02 03:05:00 Abraham Orantes [facility] TROPONIN I 2020-07-02 03:05:00 Felipe Ortega [facility] COMP. METABOLIC PANEL ([id number]) 2020-07-02 03:05:[address] [facility] CBC WITH DIFF 2020-07-02 03:05:00 Abraham Orantes [facility] NOTICE OF PRIVACY PRACTICES 2020-07-02 02:48:43 Doctor Unassigned, [place] [facility] CONSENT/REFUSAL FOR DIAGNOSIS AND TREATMENT 2020-07-02 02:46:14 Doctor Unassigned, [place] [facility] Plan of Care Planned Activity Planned Date Details Comments Source Goal Plan of Care Note [code = 78600-6] Goal Plan of Care Note [code = 74043-3] Goal Plan of Care Note [code = 48386-7] Goal Plan of Care Note [code = 41068-3] Goal Plan of Care Note [code = 76414-7] Goal Plan of Care Note [code = 63550-7] Goal Plan of Care Note [code = 55266-3] Goal Plan of Care Note [code = 59432-4] Goal Plan of Care Note [code = 87434-9] Goal Plan of Care Note [code = 28381-8] Goal Plan of Care Note [code = 63143-3] Goal Plan of Care Note [code = 99424-7] Goal Plan of Care Note [code = 56508-2] Goal Plan of Care Note [code = 31570-7] Goal Plan of Care Note [code = 43101-7] Encounters Start Date/Time End Date/Time Encounter Type Admission Type Attending Clinicians Care Facility Care Department Encounter ID Source 2022-07-29 14:17:02 Outpatient Mayuri James [facility] [id number] [facility] 2022-07-11 08:20:03 Outpatient Mayuri James [facility] [id number] [facility] 2024-03-30 08:30:00 2024-03-30 08:30:00 Outpatient DEEJAY GIBRAN LUZ [facility] [id number] [facility] 2024-02-29 00:00:00 2024-02-29 13:30:22 Letter (Out) Karl Ferguson [facility] 1..840.114 [id number] [facility] 2024-02-24 00:00:00 2024-02-24 00:00:00 Outpatient MELINA GOLDBERG [id number] Luz Maria [facility] 2024-02-24 00:00:00 2024-02-24 00:00:00 Outpatient HAYDEN ORTIZ [id number] Luz Maria [facility] 2024-02-22 00:00:00 2024-02-22 14:50:01 Letter (Out) Elida Lewis [facility] 1..840.114 [id number] [id number] [facility] 2024-02-22 00:00:00 2024-02-22 00:00:00 Outpatient HAYDEN ORTIZ [id number] Luz Maria [facility] 2024-02-20 21:47:00 2024-02-20 23:54:00 Emergency X LETI RIVAS [facility] ERT [id number] [facility] 2024-02-20 21:47:00 2024-02-20 23:54:00 Emergency Leti Rivas [facility] ..840.114 [id number] [id number] [facility] 2024-01-26 00:00:00 2024-01-26 00:00:00 Outpatient HAYDEN ORTIZ [id number] [facility] 2024-01-15 00:00:00 2024-01-15 00:00:00 Outpatient HAYDEN ORTIZ [id number] [facility] 2023-12-28 00:00:00 2023-12-28 00:00:00 Outpatient HAYDEN ORTIZ [id number] [facility] 2023-12-18 00:00:00 2023-12-18 00:00:00 Outpatient LUZ MARIA HOLLIDAY [id number] [facility] 2023-12-17 15:30:00 2023-12-17 15:30:00 Outpatient HAYDEN ORTIZ LUZ MARIA [id number] [facility] 2023-12-11 00:00:00 2023-12-11 00:00:00 Outpatient HAYDEN ORTIZ [id number] Luz Maria [facility] 2023-12-09 20:14:00 2023-12-09 23:50:00 Emergency X ABRAHAM ORANTES [facility] ERT [id number] [facility] 2023-12-09 20:14:00 2023-12-09 23:50:00 Emergency Abraham Orantes S [facility] .[id number] [id number] [id number] [id number] [facility] 2023-11-24 00:00:00 2023-11-24 00:00:00 Outpatient HAYDEN ORTIZ [id number] Luz Maria [facility] 2023-11-18 00:00:00 2023-11-18 00:00:00 Letter (Out) Chavez Turner [facility] [id number] 350.1.13.10 [id number] [facility] 2023-11-10 14:00:00 2023-11-10 14:00:00 Outpatient PREHAYDEN MILNER LUZ MARIA [id number] [facility] 2023-11-09 00:00:00 2023-11-09 00:00:00 Outpatient HAYDEN ORTIZ [facility] [id number] [facility] 2023-11-06 00:00:00 2023-11-06 00:00:00 Outpatient ANGEL HAYDEN HOLLIDAY [id number] [facility] 2023 11:30:00 2023 11:30:00 Outpatient CALLIE THORNE [facility] [id number] [facility] 2023-10-16 00:00:00 2023-10-16 00:00:00 Outpatient HAYDEN ORTIZ LUZ MARIA HOLLIDAY [id number] Luz Maria [facility] 2023-10-13 00:00:00 2023-10-13 00:00:00 Outpatient LUZ MARIA HOLLIDAY [id number] Luz Maria [facility] 2023-10-06 14:30:00 2023-10-06 14:30:00 Outpatient HAYDEN ORTIZ LUZ MARIA HOLLIDAY [id number] [facility] 2023-08-14 00:00:00 2023-08-14 00:00:00 Outpatient MERLYN WORTHINGTON [facility] [id number] [facility] 2023-08-13 00:00:00 2023-08-13 00:00:00 Patient Secure Msg Doctor Unassigned, [place] [facility] 1.2.840.114 350.1.13.10 4.2.7.2.686 [id number] [facility] 2023-08-11 16:15:00 2023-08-11 16:15:00 Outpatient ADAN CHESTER [id number] [facility] 2023-08-03 20:26:00 2023-08-04 00:05:00 Emergency X BAILEYSAMUELABRAHAM [facility] ERT [id number] [facility] 2023-08-03 20:26:00 2023-08-04 00:05:00 Emergency Abraham Orantes [facility] 1.2.840.114 350.1.13.10 4.2.7.2.686 [id number] [facility] 2023-08-03 00:00:00 2023-08-03 00:00:00 Outpatient KIARA RICHARDSON [id number] Luz Maria Ng 2023-08-03 00:00:00 2023-08-03 00:00:00 Orders Only Doctor Unassigned, [place] [facility] 1.2.840.114 350.1.13.10 4.2.7.2.686 [id number] [facility] 2023-07-25 09:58:00 2023-07-25 12:56:00 Emergency X CLAUDIATrevor [facility] ERT [id number] [facility] 2023-07-25 09:58:00 2023-07-25 12:56:00 Emergency Claudia, Trevor Tiffanie [facility] 1.2.840.114 350.1.13.10 4.2.7.2.686 [id number] [facility] 2023-07-24 12:36:00 2023-07-24 17:49:00 Emergency X JOHNATHAN AVILA [facility] ERT [id number] [facility] 2023-07-24 12:36:00 2023-07-24 17:49:00 Emergency Johnathan Avila [facility] 1.2.840.114 350.1.13.10 4.2.7.2.686 [id number] [facility] 2023-07-24 14:30:00 2023-07-24 14:30:00 Outpatient ADAN CHESTER [id number] Luz Maria Ng 2023-07-24 00:00:00 2023-07-24 00:00:00 Telephone Nasser, [place] [facility] 1.840.114 350.1.13.10 4.2.7.2.686 [id number] [facility] 2023-07-23 05:22:00 2023-07-23 10:02:00 Emergency EM Jessie Paul [facility] [id number] 2023-07-22 00:00:00 2023-07-22 00:00:00 Telephone [facility] 1.2840.114 350.1.13.10 4.2.7.2.686 [id number] [facility] 2023-07-22 00:00:00 2023-07-22 00:00:00 Patient Secure Msg Doctor Unassigned, [place] [facility] 1.840.114 350.1.13.10 4.2.7.2.686 [id number] [facility] 2023-07-20 00:00:00 2023-07-20 00:00:00 Telephone [facility] 1.840.114 350.1.13.10 4.2.7.2.686 [id number] [facility] 2023-07-17 13:45:00 2023-07-17 13:45:00 Outpatient JIMMY BRENNAN [id number] Luz Maria Ng 2023-07-11 20:53:00 2023-07-11 23:38:00 Emergency X STEPHIE HEWITT [facility] ERT [id number] [facility] 2023-07-11 20:53:00 2023-07-11 23:38:00 Emergency Stephie Hewitt [facility] 1.840.114 350.1.13.10 4.2.7.2.686 [id number] [facility] 2023-07-10 08:45:00 2023-07-10 12:03:37 Outpatient R MERLYN HIDALGO [facility] [id number] [facility] 2023-07-10 08:45:00 2023-07-10 12:03:37 Office Visit Merlyn Hidalgo [facility] 1..840.114 350.1.13.10 4.2.7.2.686 [id number] [facility] 2023-07-10 00:00:00 2023-07-10 00:00:00 Orders Only Doctor Unassigned, [place] [facility] 1..840.114 350.1.13.10 4.2.7.2.686 [id number] [facility] 2023-07-08 09:15:00 2023-07-08 09:15:00 Outpatient KIARA RICHARDSON [id number] [facility] 04:49:00 2023-07-03 09:47:00 Emergency MIRIAM LIN [facility] [id number] [facility] 2023-07-03 04:49:00 2023-07-03 09:47:00 Emergency Haresh Santamaria [facility] 1..840.114 350.1.13.10 4.2.7.2.686 [id number] [facility] 2023-07-01 22:56:00 2023-07-02 01:00:00 Emergency Jessie Billingsley [facility] ER [id number] [facility] 2023-05-20 15:50:00 2023-05-20 15:50:00 Outpatient LAB56 LUZ MARIA HOLLIDAY [id number] [facility]23-[facility]-20 15:15:00 2023-05-20 15:15:00 Outpatient KIARA RICHARDSON LUZ MARIA HOLLIDAY [id number] Luz Maria Ng 2023-05-07 17:37:00 2023-05-07 23:23:00 Emergency X MANFRED KAN [facility] ERT [id number] [facility] 2023-05-07 17:37:00 2023-05-07 23:23:00 Emergency Kelsi hensley [facility] 1.840.114 350.1.13.10 4.2.7.2.686 [id number] [facility] 2023-05-01 21:39:00 2023-05-02 00:35:00 Emergency X AYDIN MATOS [facility] ERT [id number] [facility] 2023-05-01 21:39:00 2023-05-02 00:35:00 Emergency Aydin Matos [facility] 1..840.114 350.1.13.10 4.2.7.2.686 [id number] [facility] 2023-04-22 03:51:00 2023-04-22 13:11:00 Emergency X NATALI ALEXANDER [facility] ERT [id number] [facility] 2023-04-22 03:51:00 2023-04-22 13:11:00 Emergency Abraham Orantes [facility] 1..840.114 350.1.13.10 4.2.7.2.686 [id number] [facility] 2023-04-16 07:09:00 2023-04-16 09:00:00 Emergency X ADELAIDE GOODWIN [facility] ERT [id number] [facility] 2023-04-16 07:09:00 2023-04-16 09:00:00 Emergency Adelaide Goodwin [facility] 1..840.114 350.1.13.10 4.2.7.2.686 [id number] [facility] 2023-03-31 23:59:00 2023-04-01 03:24:00 Emergency X HEMALATHA MORA [facility] ERT [id number] [facility] 2023-03-31 23:59:00 2023-04-01 03:24:00 Emergency Hemalatha Mora [facility] 1.2.840.114 350.1.13.10 4.2.7.2.686 [id number] [facility] 2023-02-13 16:02:00 2023-02-13 17:25:00 Emergency X JESSICA GONZALES [facility] ERT [id number] [facility] 2023-02-13 16:02:00 2023-02-13 17:25:00 Emergency Jessica Gonzales [facility] 1.2.840.114 350.1.13.10 4.2.7.2.686 [id number] [id number] [facility] 2023-01-05 00:00:00 2023-01-05 00:00:00 Orders Only Doctor Unassigned, [place] [facility] 1.2.840.114 350.1.13.10 4.2.7.2.686 [id number] [facility] 2022-12-29 17:25:40 2022-12-29 17:25:40 Outpatient [facility] [id number] Dewey Ponce 2022-12-09 00:01:00 2022-12-09 01:39:00 Emergency X YESENIASOHAM [facility] ERT [id number] [facility] 2022-12-09 00:01:00 2022-12-09 01:39:00 Emergency Soham Clarke [facility] 1.2.840.114 350.1.13.10 4.2.7.2.686 [id number] [facility] 2022-11-24 23:44:00 2022-11-25 02:56:00 Emergency X AYDIN MATOS [facility] ERT [id number] [facility] 2022-11-24 23:44:00 2022-11-25 02:56:00 Emergency Lion Nascimento [facility] 1.2840.114 350.1.13.10 4.2.7.2.686 [id number] 084 [id number] [facility] 2022-10-25 00:00:00 2022-10-25 00:00:00 Patient Secure Msg Doctor Unassigned, [place] [facility] 1.2840.114 350.1.13.10 4.2.7.2.686 [id number] [facility] 2022-10-23 00:00:00 2022-10-23 00:00:00 Orders Only Doctor Unassigned, [place] [facility] 1.20.114 350.1.13.10 4.2.7.2.686 [id number] [facility] 2022-10-11 06:41:00 2022-10-12 17:56:00 Outpatient X MARK HERNANDEZ [facility] MARTI [id number] [facility] 2022-10-11 06:41:00 2022-10-12 17:56:00 Emergency Aydin Matos [facility] 1.20.114 350.1.13.10 4.2.7.2.686 [id number] [facility] 2022-10-08 22:15:00 2022-10-09 01:39:00 Emergency X ABRAHAM ORANTES [facility] ERT [id number] [facility] 2022-10-08 22:15:00 2022-10-09 01:39:00 Emergency Abraham Orantes [facility] 1.2840.114 350.1.13.10 4.2.7.2.686 [id number] [id number] [facility] 2022-10-08 00:00:00 2022-10-08 00:00:00 Orders Only Doctor Unassigned, [place] [facility] 1.2.840.114 350.1.13.10 4.2.7.2.686 [id number] [facility] 2022-08-20 08:42:00 2022-08-20 12:19:00 Emergency X Trevor TAYLOR [facility] ERT [id number] [facility] 2022-08-20 08:42:00 2022-08-20 12:19:00 Emergency Trevor Taylor [facility] 1.2.840.114 350.1.13.10 4.2.7.2.686 [id number] [facility] 2022-07-11 00:00:00 2022-07-11 00:00:00 OFFICE VISIT NEW PT LEVEL 3 STLMLC STLMLC [id number] [facility] 2022-07-09 10:07:22 2022-07-09 10:07:[address] [facility] [id number] Dewey Ponce 2022-07-09 00:00:00 2022-07-09 00:00:00 Outpatient Visit [id number] 2022-06-09 06:57:00 2022-06-09 10:27:00 Emergency X SOHAM CLARKE [facility] ERT [id number] [facility] 2022-06-09 06:57:00 2022-06-09 10:27:00 Emergency Soham Clarke [facility] 1.2.840.114 350.1.13.10 4.2.7.2.686 [id number] [facility] 2022-06-09 00:00:00 2022-06-09 00:00:00 Orders Only Doctor Unassigned, [place] [facility] 1.2.840.114 350.1.13.10 4.2.7.2.686 [id number] [id number] [facility] 2021-11-04 00:00:00 2021-11-04 00:00:00 Transition of Care Carly Ellen Shonna REN 1.2.840.114 350.1.13.10 4.2.7.2.686 [id number] [facility] 2021-10-30 13:39:00 2021-11-01 13:45:00 Inpatient X EMELIA GALLE[facility] [id number] [facility] 2021-10-30 13:39:00 2021-11-01 13:45:00 Hospital Encounter Madison Sepulveda David [facility] 1.2.840.114 350.1.13.10 4.2.7.2.686 [id number] [facility] 2021-10-30 00:00:00 2021-10-30 00:00:00 Orders Only Doctor Unassigned, [place] [facility] 1.2.840.114 350.1.13.10 4.2.7.2.686 [id number] [facility] 2021-05-23 20:42:00 2021-05-24 01:42:00 Emergency Felipe Ortega [facility] 1.2.840.114 350.1.13.10 4.2.7.2.686 [id number] [facility] 2021-05-23 20:42:00 2021-05-23 20:42:00 Emergency X FELIPE ORTEGA [facility] ERT [id number] [facility] 2021-05-22 18:37:00 2021-05-22 21:40:00 Emergency Drever, Gabriella G [facility] 1.2840.114 350.1.13.10 4.2.7.2.686 [id number] [id number] [facility] 2021-05-22 18:31:00 2021-05-22 18:31:00 Emergency X [facility] ERT [id number] [facility] 2021-05-07 11:11:35 2021-05-07 11:11:42 Imm/Inj Visit Nurse, Adc Pob Immunizatio David Godinez [facility] 1.2840.114 350.1.13.10 4.2.7.2.686 [id number] [facility] 2021-05-01 19:09:00 2021-05-01 20:46:00 Emergency Nikhil Blanton [facility] 1.2840.114 350.1.13.10 4.2.7.2.686 [id number] [facility] 2021-05-01 18:53:00 2021-05-01 18:53:00 Emergency X [facility] ERT [id number] [facility] 2021-04-01 20:06:00 2021-04-01 21:56:00 Emergency Nikihl Blanton [facility] 1.2840.114 350.1.13.10 4.2.7.2.686 [id number] [id number] 2021-04-01 20:06:00 2021-04-01 21:56:00 Emergency BlantonNikhil ambrocio [facility] 1.2840.114 350.1.13.10 4.2.7.2.686 [id number] [facility] 2021-04-01 20:06:00 2021-04-01 20:06:00 Emergency X NIKHIL BLANTON [facility] ERT [id number] [facility] 2021-03-17 20:09:00 2021-03-17 22:19:00 Emergency Hortencia Blantonanne [facility] 1.2.840.114 350.1.13.10 4.2.7.2.686 [id number] 2021-03-17 20:09:00 2021-03-17 22:19:00 Emergency Hortencia Blantonanne [facility] 1.2.840.114 350.1.13.10 4.2.7.2.686 [id number] [facility] 2021-03-17 19:56:00 2021-03-17 19:56:00 Emergency X [facility] ERT [id number] [facility] 2020-11-15 00:00:00 2020-11-15 00:00:00 Telephone Pcp, Patient Does Not Have A [facility] 1.2.840.114 350.1.13.10 4.2.7.2.686 [id number] 2020-11-15 00:00:00 2020-11-15 00:00:00 Letter (Out) [facility] 1.2.840.114 350.1.13.10 4.2.7.2.686 [id number] 2020-11-15 00:00:00 2020-11-15 00:00:00 Letter (Out) [facility] 1.2.840.114 350.1.13.10 4.2.7.2.686 [id number] [id number] [facility] 2020-11-15 00:00:00 2020-11-15 00:00:00 Telephone Pcp, Patient Does Not Have A [facility] 1.2.840.114 350.1.13.10 4.2.7.2.686 [id number] [facility] 2020-11-14 21:29:00 2020-11-14 22:55:00 Emergency Darnell Hsu [facility] 1.2.840.114 350.1.13.10 4.2.7.2.686 [id number] [id number] 2020-11-14 21:29:00 2020-11-14 22:55:00 Emergency Darnell Hsu [facility] 1.2.840.114 350.1.13.10 4.2.7.2.686 [id number] [facility] 2020-11-14 21:29:00 2020-11-14 22:55:00 Emergency X DARNELL HSU [facility] ERT [id number] [facility] 2020-09-30 08:03:00 2020-09-30 10:45:00 Emergency Jessica Siddiquira Pa [facility] 1.2.840.114 350.1.13.10 4.2.7.2.686 [id number] [id number] 2020-09-30 08:03:00 2020-09-30 10:45:00 Emergency Jessica Siddiquira Pa [facility] 1.2.840.114 350.1.13.10 4.2.7.2.686 [id number] [facility] 2020-09-30 07:58:00 2020-09-30 07:58:00 Emergency X [facility] ERT [id number] [facility] 2020-09-30 00:00:00 2020-09-30 00:00:00 Orders Only Doctor Unassigned, [place] [facility] 1.2.840.114 350.1.13.10 4.2.7.2.686 [id number] 2020-09-30 00:00:00 2020-09-30 00:00:00 Orders Only Doctor Unassigned, [place] [facility] 1.2.840.114 350.1.13.10 4.2.7.2.686 [id number] [facility] 2020-07-01 21:58:00 2020-07-01 23:54:00 Emergency Felipe Ortega [facility] 1.2.840.114 350.1.13.10 4.2.7.2.686 [id number] 2020-07-01 21:58:00 2020-07-01 23:54:00 Emergency Felipe Ortega [facility] 1.2.840.114 350.1.13.10 4.2.7.2.686 [id number] [facility] 2020-07-01 21:58:00 2020-07-01 21:58:00 Emergency X FELIPE ORTEGA [facility] ERT [id number] [facility] Results Test Description Test Time Test Comments Results Result Co mments Source [facility]40* Test Item Value Reference Range Interpretation Comme nts LIPASE (test code = 7792313607) 117 U/L 0-220 Lab Interpretation (test cod e = 31941-1) Normal [facility] [id number] 03:39:58* Test Item Value Reference Range Interpretation Comme nts WBC (test code = 6690-2) 5.91 4.20-10.70 RBC (test code = 789-8) 4.79 4.26-5.52 HGB (test code = 718-7) 14.5 g/dL 12.2-16.4 HCT (test code = 4544-3) 41.7 % 38.4-49.3 MCV (test code = 787-2) 87.1 fL 81.7-95.6 MCH (test code = 785-6) 30.3 pg 26.1-32.7 MCHC (test code = 786-4) 34.8 g/dL 31.2-35.0 RDW-SD (test code = 18172-6) 40.3 fL 38.5-51.6 RDW-CV (test code = 788-0) 12.7 % 12.1-15.4 PLT (test code = 777-3) 216 150-328 MPV (test code = 92798-0) 9.6 fL 9.8-13.0 L NRBC/100 WBC (test code = 9690240113) 0.0 0.0-10.0 NRBC x10^3 (test code = 2905203681) See_Comment [Automated messa ge] The system which generated this result transmitted reference range: 10*3/?L. The reference range was not used to interpret this result as normal/abnormal. GRAN MAT (NEUT) % (test code = 770-8) 32.8 % IMM GRAN % (test code = 1902768577) 0.20 % LYMPH % (test code = 736-9) 58.5 % MONO % (test code = 5905-5) 6.6 % EOS % (test code = 713-8) 1.4 % BASO % (test code = 706-2) 0.5 % GRAN MAT x10^3(ANC) (test code = 0350299661) 1.94 10*3/uL 1.99-6.95 L IMM GRAN x10^3 (test code = 3328313983) 0.00-0.06 LYMPH x10^3 (test code = 731-0) 3.46 10*3/uL 1.09-3.23 H MONO x10^3 (test code = 742-7) 0.39 10*3/uL 0.36-1.02 EOS x10^3 (test code = 711-2) 0.08 10*3/uL 0.06-0.53 BASO x10^3 (test code = 704-7) 0.03 10*3/uL 0.01-0.09 Lab Interpretation (test code = 09877-4) Abnormal [facility] with [id number] 03:17:11* Test Item Value Reference Range Interpretation Comme nts WBC (test code = 6690-2) 6.21 4.20-10.70 RBC (test code = 789-8) 4.89 4.26-5.52 HGB (test code = 718-7) 14.8 g/dL 12.2-16.4 HCT (test code = 4544-3) 42.5 % 38.4-49.3 MCV (test code = 787-2) 86.9 fL 81.7-95.6 MCH (test code = 785-6) 30.3 pg 26.1-32.7 MCHC (test code = 786-4) 34.8 g/dL 31.2-35.0 RDW-SD (test code = 71167-0) 39.9 fL 38.5-51.6 RDW-CV (test code = 788-0) 12.7 % 12.1-15.4 PLT (test code = 777-3) 240 150-328 MPV (test code = 85957-0) 9.8 fL 9.8-13.0 NRBC/100 WBC (test code = 5422564086) 0.0 0.0-10.0 NRBC x10^3 (test code = 6209105268) See_Comment [Automated Footbalistica ge] The system which generated this result transmitted reference range: 10*3/?L. The reference range was not used to interpret this result as normal/abnormal. GRAN MAT (NEUT) % (test code = 770-8) 31.3 % IMM GRAN % (test code = 1707954687) 0.00 % LYMPH % (test code = 736-9) 57.3 % MONO % (test code = 5905-5) 9.3 % EOS % (test code = 713-8) 1.6 % BASO % (test code = 706-2) 0.5 % GRAN MAT x10^3(ANC) (test code = 6738029521) 1.94 10*3/uL 1.99-6.95 L IMM GRAN x10^3 (test code = 2457525225) 0.00-0.06 LYMPH x10^3 (test code = 731-0) 3.56 10*3/uL 1.09-3.23 H MONO x10^3 (test code = 742-7) 0.58 10*3/uL 0.36-1.02 EOS x10^3 (test code = 711-2) 0.10 10*3/uL 0.06-0.53 BASO x10^3 (test code = 704-7) 0.03 10*3/uL 0.01-0.09 Lab Interpretation (test code = 73761-7) Abnormal [facility] (46174)2023-12-10 03:13:49* Test Item Value Reference Range Interpretation Comme nts NA (test code = 9287905821) 141 mmol/L 135-145 K (test code = 4258692253) 4.3 mmol/L 3.5-5.0 CL (test code = 5757877671) 107 mmol/L 98-108 CO2 TOTAL (test code = 5062725407) 26 mmol/L 23-31 AGAP (test code = 3203815948) 8 2-16 BUN (test code = 5248255775) 20 mg/dL 7-23 GLUCOSE (test code = 5319536462) 123 mg/dL 70-110 H CREATININE (test code = 2160-0) 0.95 mg/dL 0.60-1.25 TOTAL BILI (test code = 7443971694) 0.8 mg/dL 0.1-1.1 CALCIUM (test code = 9102678916) 9.0 mg/dL 8.6-10.6 T PROTEIN (test code = 9967575025) 8.4 g/dL 6.3-8.2 H ALBUMIN (test code = 7295708656) 4.3 g/dL 3.5-5.0 ALK PHOS (test code = 3283750308) 58 U/L 34-122 ALTv (test code = 1742-6) 33 U/L 5-50 AST(SGOT) (test code = 2877325704) 52 U/L 13-40 H eGFR (test code = 83039-9) 96.9 mL/min/1.73m2 CKD-EPI eGFR (2020). Assuming creatinine has been stable day-to-day for at least three months, the eGFR indicates Category G1 (>= 90 mL/min/1.73 m2) Lab Interpretation (test code = 33243-7) [facility] [id number] 03:12:08CT ABDOMEN PELVIS W CONTRAST HISTORY: 53 [...] TISSUES: No suspicious lytic or sclerotic bony lesions.[facility] BASIC METABOLIC PANEL (NA, K, CL, CO2, GLUCOSE, BUN, CREATININE, CA)2023-08-04 03:27:21* Test Item Value Reference Range Interpretation Comme nts NA (test code = 2941628812) 140 mmol/L 135-145 K (test code = 3884444643) 3.9 mmol/L 3.5-5.0 CL (test code = 2124174797) 104 mmol/L 98-108 CO2 TOTAL (test code = 8746485994) 28 mmol/L 23-31 AGAP (test code = 8867322732) 8 2-16 BUN (test code = 5272849328) 15 mg/dL 7-23 GLUCOSE (test code = 7211483635) 155 mg/dL 70-110 H CREATININE (test code = 9334707302) 1.37 mg/dL 0.60-1.25 H CALCIUM (test code = 9611494544) 9.5 mg/dL 8.6-10.6 eGFR (test code = 71398-9) 62.8 mL/min/1.73m2 CKD-EPI eGFR (2020). Assuming creatinine has been stable day-to-day for at least three months, the eGFR indicates Category G2 (60 - 89 mL/min/1.73 m2) Lab Interpretation (test code = 54242-9) Abnormal [facility] WITH [id number] 03:12:39* Test Item Value Reference Range Interpretation Comme nts WBC (test code = 6690-2) 6.98 See_Comment [Automated messa ge] The system which generated this result transmitted reference range: 4.20 - 10.70 10*3/?L. The reference range was not used to interpret this result as normal/abnormal. RBC (test code = 789-8) 5.27 See_Comment [Automated messa ge] The system which [...] g/dL 31.2-35.0 H RDW-SD (test code = 85807-9) 38.1 fL 38.5-51.6 L RDW-CV (test code = 788-0) 12.3 % 12.1-15.4 PLT (test code = 777-3) 238 See_Comment [Automated messa ge] The system which generated this result transmitted reference range: 150 - 328 10*3/?L. The reference range was not used to interpret this result as normal/abnormal. MPV (test code = 36232-7) 9.8 fL 9.8-13.0 NRBC/100 WBC (test code = 4773312143) 0.0 See_Comment [Automated [facility] ssage] The system which generated this result transmitted reference range: 0.0 - 10.0 /100 WBCs. The reference range was not used to interpret this result as normal/abnormal. NRBC x10^3 (test code = 0671606618) See_Comment [Automated messa ge] The system which generated this result transmitted reference range: 10*3/?L. The reference range was not used to interpret this result as normal/abnormal. GRAN MAT (NEUT) % (test code = 770-8) 37.8 % IMM GRAN % (test code = 3547391924) 0.30 % LYMPH % (test code = 736-9) 52.7 % MONO % (test code = 5905-5) 7.7 % EOS % (test code = 713-8) 1.1 % BASO % (test code = 706-2) 0.4 % GRAN MAT x10^3(ANC) (test code = 8585536298) 2.63 10*3/uL 1.99-6.95 IMM GRAN x10^3 (test code = 5292464934) 0.00-0.06 LYMPH x10^3 (test code = 731-0) 3.68 10*3/uL 1.09-3.23 H MONO x10^3 (test code = 742-7) 0.54 10*3/uL 0.36-1.02 EOS x10^3 (test code = 711-2) 0.08 10*3/uL 0.06-0.53 BASO x10^3 (test code = 704-7) 0.03 10*3/uL 0.01-0.09 Lab Interpretation (test code = 54594-2) [facility]normal [id number] 17:24:34* Test Item Value Reference Range Interpretation Comme nts TROPONIN I (test code = 1138769804) 0.018 ng/mL <=0.034 KRYSTLE (test code = [...] of biotin. Lab Interpretation (test code = 94314-3) Normal [facility] 17:13:15* Test Item Value Reference Range Interpretation Comme nts MAGNESIUM (test code = 2270985733) 1.9 mg/dL 1.7-2.4 Lab Interpretation (test cod e = 59597-6) Normal [facility] (47404)2023-07-25 17:12:55* Test Item Value Reference Range Interpretation Comme nts NA (test code = 9585964600) 141 mmol/L 135-145 K (test code = 0547463638) 3.8 mmol/L 3.5-5.0 CL (test code = 2881603745) 106 mmol/L 98-108 CO2 TOTAL (test code = 7342390116) 27 mmol/L 23-31 AGAP (test code = 8983875818) 8 2-16 BUN (test code = 2520009300) 14 mg/dL 7-23 GLUCOSE (test code = 5013712157) 124 mg/dL 70-110 H CREATININE (test code = 2835633788) 0.93 mg/dL 0.60-1.25 TOTAL BILI (test code = 4694193539) 0.8 mg/dL 0.1-1.1 CALCIUM (test code = 3590364833) 9.3 mg/dL 8.6-10.6 T PROTEIN (test code = 2405331966) 8.2 g/dL 6.3-8.2 ALBUMIN (test code = 7135693813) 4.4 g/dL 3.5-5.0 ALK PHOS (test code = 1298294866) 49 U/L 34-122 ALTv (test code = 1742-6) 20 U/L 5-50 AST(SGOT) (test code = 7487971585) 28 U/L 13-40 eGFR (test code = 12093-6) 100.0 mL/min/1.73m2 CKD-EPI eGFR (2020). Assuming creatinine has been stable day-to-day for at least three months, the eGFR indicates Category G1 (>= 90 mL/min/1.73 m2) Lab Interpretation (test code = 01560-8) [facility]normal [facility] 17:12:35* Test Item Value Reference Range Interpretation Comme nts LIPASE (test code = 7431494047) 109 U/L 0-220 Lab Interpretation (test cod e = 86001-5) Normal [facility] WITH [id number] 16:59:59* Test Item Value Reference Range Interpretation Comme nts WBC (test code = 6690-2) 5.17 See_Comment [Automated messa ge] The system which [...] g/dL 31.2-35.0 H RDW-SD (test code = 05171-6) 39.2 fL 38.5-51.6 RDW-CV (test code = 788-0) 12.5 % 12.1-15.4 PLT (test code = 777-3) 207 See_Comment [Automated messa ge] The system which generated this result transmitted reference range: 150 - 328 10*3/?L. The reference range was not used to interpret this result as normal/abnormal. MPV (test code = 89581-8) 10.0 fL 9.8-13.0 NRBC/100 WBC (test code = 1474347094) 0.0 See_Comment [Automated me ssage] The system which generated this result transmitted reference range: 0.0 - 10.0 /100 WBCs. The reference range was not used to interpret this result as normal/abnormal. NRBC x10^3 (test code = 0947140258) See_Comment [Automated messa ge] The system which generated this result transmitted reference range: 10*3/?L. The reference range was not used to interpret this result as normal/abnormal. GRAN MAT (NEUT) % (test code = 770-8) 45.8 % IMM GRAN % (test code = 5077776507) 0.20 % LYMPH % (test code = 736-9) 42.9 % MONO % (test code = 5905-5) 9.9 % EOS % (test code = 713-8) 0.8 % BASO % (test code = 706-2) 0.4 % GRAN MAT x10^3(ANC) (test code = 6231122825) 2.37 10*3/uL 1.99-6.95 IMM GRAN x10^3 (test code = 2768101814) 0.00-0.06 LYMPH x10^3 (test code = 731-0) 2.22 10*3/uL 1.09-3.23 MONO x10^3 (test code = 742-7) 0.51 10*3/uL 0.36-1.02 EOS x10^3 (test code = 711-2) 0.04 10*3/uL 0.06-0.53 L BASO x10^3 (test code = 704-7) 0.01-0.09 Lab Interpretation (test code = 96665-5) [facility]normal [facility] (93531)(TOTAL CHOLESTEROL, TRIGLYCERIDES, HDL)2023-07-24 21:48:18* Test Item Value Reference Range Interpretation Comme nts CHOL (test code = 0614339552) 220 mg/dL 120-200 H HDL (test code = 0411717671) 31 mg/dL >=40 L HDLC RATIO (test code = 7615385823) 7.1 <=5.0 H TRIG (test code = 6296904866) 134 mg/dL 30-170 LDL CHOL (test code = 99569-0) 162 mg/dL <=160 H VLDL (test code = 0978138338) 27 mg/dL 5-60 Lab Interpretation (test cod e = 13775-0) [facility]normal [facility] Metabolic [id number] 20:48:07* Test Item Value Reference Range Interpretation Comme nts NA (test code = 5882711481) 141 mmol/L 135-145 K (test code = 5517213410) 3.8 mmol/L 3.5-5.0 CL (test code = 7226117390) 103 mmol/L 98-108 CO2 TOTAL (test code = 5236603966) 29 mmol/L 23-31 AGAP (test code = 9972702845) 9 2-16 BUN (test code = 6870864206) 14 mg/dL 7-23 GLUCOSE (test code = 4312962868) 102 mg/dL 70-110 CREATININE (test code = 1126397716) 0.85 mg/dL 0.60-1.25 TOTAL BILI (test code = 8259265960) 1.2 mg/dL 0.1-1.1 H CALCIUM (test code = 9678530363) 10.0 mg/dL 8.6-10.6 T PROTEIN (test code = 8634656209) 8.9 g/dL 6.3-8.2 H ALBUMIN (test code = 6823508681) 5.0 g/dL 3.5-5.0 ALK PHOS (test code = 0056103395) 52 U/L 34-122 ALTv (test code = 1742-6) 22 U/L 5-50 AST(SGOT) (test code = 9609466415) 45 U/L 13-40 H eGFR (test code = 64965-6) 105.9 mL/min/1.73m2 CKD-EPI eGFR (2020). Assuming creatinine has been stable day-to-day for at least three months, the eGFR indicates Category G1 (>= 90 mL/min/1.73 m2) Lab Interpretation (test code = 79933-5) [facility]normal [facility] Hospital[facility], [id number] 20:48:07* Test Item Value Reference Range Interpretation Comme nts LIPASE (test code = 6159002193) 134 U/L 0-220 Lab Interpretation (test cod e = 52736-8) Normal [facility] with Tpqhsyiagsds3834-43-41 20:20:02* Test Item Value Reference Range Interpretation Comme nts WBC (test code = 6690-2) 6.91 See_Comment [Automated Footbalistica ge] The system which generated this result transmitted reference range: 4.20 - 10.70 10*3/?L. The reference range was not used to interpret this result as normal/abnormal. RBC (test code = 789-8) 5.49 See_Comment [Automated Footbalistica ge] The system which generated this result [...] 34.7 g/dL 31.2-35.0 RDW-SD (test code = 83769-6) 40.0 fL 38.5-51.6 RDW-CV (test code = 788-0) 12.7 % 12.1-15.4 PLT (test code = 777-3) 228 See_Comment [Automated Footbalistica ge] The system which generated this result transmitted reference range: 150 - 328 10*3/?L. The reference range was not used to interpret this result as normal/abnormal. MPV (test code = 92005-8) 9.5 fL 9.8-13.0 L NRBC/100 WBC (test code = 2187201757) 0.0 See_Comment [Automated [facility] ssage] The system which generated this result transmitted reference range: 0.0 - 10.0 /100 WBCs. The reference range was not used to interpret this result as normal/abnormal. NRBC x10^3 (test code = 2188393641) See_Comment [Automated Footbalistica ge] The system which generated this result transmitted reference range: 10*3/?L. The reference range was not used to interpret this result as normal/abnormal. GRAN MAT (NEUT) % (test code = 770-8) 46.9 % IMM GRAN % (test code = 8125550226) 0.30 % LYMPH % (test code = 736-9) 42.3 % MONO % (test code = 5905-5) 9.8 % EOS % (test code = 713-8) 0.4 % BASO % (test code = 706-2) 0.3 % GRAN MAT x10^3(ANC) (test code = 4529603488) 3.24 10*3/uL 1.99-6.95 IMM GRAN x10^3 (test code = 9134731494) 0.00-0.06 LYMPH x10^3 (test code = 731-0) 2.92 10*3/uL 1.09-3.23 MONO x10^3 (test code = 742-7) 0.68 10*3/uL 0.36-1.02 EOS x10^3 (test code = 711-2) 0.03 10*3/uL 0.06-0.53 L BASO x10^3 (test code = 704-7) 0.01-0.09 Lab Interpretation (test code = 26436-2) [facility] W/[id number] 08:28:00 [facility] 1970 Sex: M PatientName: NOAH PUTNAM Unit No: [id number] EXAMS: CPT CODE: [id number] CT ABD PELVIS W/CONT 54855 EXAM: - CT ABD PELVIS W/CONT INDICATION: [...] hydronephrosis. Evaluation of the bladder is limited, butno obvious bladder abnormality is present. Gastrointestinal: No bowel obstruction or perienteric inflammation. The appendix is normal. Vascular: No evidence of aneurysm or dissection. Lymphatics: Noenlarged lymph nodes by CT size criteria. Bones/Soft Tissues: No acute osseous findings. No ventralhernias. Peritoneum/Other: No extraluminal fluid. IMPRESSION: 1. No acute abnormality. [facility] Ji NAME: NOAH PUTNAM PHYS: [place] [address] : 1970 AGE: 52 SEX: M LOC: [employer] PHONE #: [phone] EXAM DATE: 07/23/2023 STATUS: REG ER FAX #: [phone] RAD #: D/C DT PAGE 1 Signed Report (CONTINUED) Patient Name: NOAH PUTNAM Unit No: [id number] EXAMS: CPT CODE: [id number] CT ABD PELVIS W/CONT 21640 (Continued) at 0828 Reported and signed by: Kiara Meza MD CC: Jessie Paul MD Technologist: Jovanni GREEN CTDI: DLP: Trnscrpt: 07/23/2023 (0828) [facility] NAME: NOAH PUTNAM PHYS: - [place] [address] : 1970 AGE: 52 SEX: M LOC: [employer] PHONE #: [phone] EXAM DATE: 07/23/2023 STATUS: REG ER FAX #: [phone] RAD #: D/C DT PAGE 2 Signed Report Patient Name: NOAH PUTNAM Unit No: [id number] EXAMS: CPT CODE: [id number] CT ABD PELVISW/CONT 72449 (Continued) Orig Print D/T: S: 07/23/2023 (0831) [facility] NAME: NOAH PUTNAM [address] PHYS: [place] [address] : 1970 AGE: 52 SEX: M LOC: ABDELRAHMAN PHONE #: [phone] EXAM DATE: 07/23/2023 STATUS: REG ER FAX #: [phone] RAD #: D/C DT PAGE 3 Signed ReportURINALYSIS [id number] 06:32:00* Test Item Value Reference Range Interpretation [...] BLOOD DIPSTICK (test code = MAMIE) 10 Cl/mm3 NEGATIVE A UA PH DIPSTICK (test code = MARYJANE) 6.0 5.0-9.0 N UA PROTEIN DIPSTICK (test co de = PROU) 30 MG/DL NEGATIVE A UA UROBILINIOGEN DIPSTICK (test code = URO) 4 MG/DL NORMAL A UA NITRITE DIPSTICK (test co de = MODESTO) NEGATIVE NEGATIVE UA LEUKOCYTE ESTERASE DIPSTI CK (test code = LEUU) NEGATIVE /mm3 NEGATIVE SOURCE OF URINE: CLEAN CATCHUA [id number] 06:32:00* Test Item Value Reference Range Interpretation Comme nts UA RBC (test code = RBCU) 3-5 RBC/HPF 0-3 A UA WBC (test code = XWBCU) 0-3 WBC/HPF 0-5 UA EPITHELIAL CELLS (test co de = EPIU) RARE EPI/HPF FEW UA BACTERIA (test code = XBACU) FEW NONE UA MUCUS (test code = MUCU) MODERATE #/LPF NONE A SOURCE OF URINE: CLEAN [id number] 06:31:00* Test Item Value Reference Range Interpretation Comme nts LIPASE (test code = LIP) 94 UNITS/L 23-300 N [id number] 06:31:00* Test Item Value Reference Range Interpretation Comme nts TROPONIN-I (test code = TROPI) 0.019 NG/ML 0.012-0.033 N BASIC METABOLIC [id number] 06:31:00* Test Item Value Reference Range Interpretation [...] calculation forGFR is based on the CKD-EPI (2020) calculation. This formulais race indifferent and is the recommended formula for GFRby the National Kidney Foundation for Adults.The GFR will not calculate if the sex is unknown or if thepatient's age is <18 years. CREATININE (test code = CREAT) 1.20 MG/DL 0.66-1.25 N CALCIUM (test code = CA) 9.5 MG/DL 8.4-10.2 N HEPATIC FUNCTION [id number] 06:31:00* Test Item Value Reference Range Interpretation Comme nts TOTAL PROTEIN (test code = PROT) 9.0 G/DL 6.2-7.6 H Ortho Clinical D iagnostic has made us aware of newinformation regarding the potential interference ofEltrombopag (a bone marrow stimulant used to treatthrombocytonmenia and aplastic anemia) with specific assayson the Vitros 5600 of which Total Protein [...] code = ALKP) 57 UNITS/L 38-126 N PROTHROMBIN [id number] 06:07:00* Test Item Value Reference Range Interpretation [...] systemic embolism. 3.0 - 4.5 CBC W/O [id number] 06:00:00* Test Item Value Reference Range Interpretation [...] = NRBC#) 0.00 K/mm3 0.0-0.1 N Troponin [id number] 02:46:51* Test Item Value Reference Range Interpretation Comme nts TROPONIN I (test code = 9823673155) 0.017 ng/mL <=0.034 KRYSTLE (test code = [...] of biotin. Lab Interpretation (test code = 88315-9) Normal [facility]MP[facility] 02:35:28* Test Item Value Reference Range Interpretation Comme nts NA (test code = 1474071347) 138 mmol/L 135-145 K (test code = 0948565352) 3.7 mmol/L 3.5-5.0 CL (test code = 7078622175) 106 mmol/L 98-108 CO2 TOTAL (test code = 2889599431) 24 mmol/L 23-31 AGAP (test code = 9449921869) 8 2-16 BUN (test code = 3243986721) 11 mg/dL 7-23 GLUCOSE (test code = 2127919737) 165 mg/dL 70-110 H CREATININE (test code = 6526174680) 0.89 mg/dL 0.60-1.25 TOTAL BILI (test code = 2892457300) 0.2 mg/dL 0.1-1.1 CALCIUM (test code = 9417195807) 9.3 mg/dL 8.6-10.6 T PROTEIN (test code = 0979502105) 7.0 g/dL 6.3-8.2 ALBUMIN (test code = 3116003505) 4.0 g/dL 3.5-5.0 ALK PHOS (test code = 4897033273) 59 U/L 34-122 ALTv (test code = 1742-6) 23 U/L 5-50 AST(SGOT) (test code = 2834601882) 27 U/L 13-40 eGFR (test code = 4180254371) 90.5 mL/min/1.73m2 KRYSTLE (test code = KRYSTLE) [...] imaging tests). Lab Interpretation (test code = 66973-1) Abnormal [facility] with [id number] 02:26:10* Test Item Value Reference Range Interpretation Comme nts WBC (test code = 6690-2) 5.78 See_Comment [Automated messa ge] The system which [...] g/dL 31.2-35.0 H RDW-SD (test code = 67460-0) 38.6 fL 38.5-51.6 RDW-CV (test code = 788-0) 12.6 % 12.1-15.4 PLT (test code = 777-3) 200 See_Comment [Automated messa ge] The system which generated this result transmitted reference range: 150 - 328 10*3/?L. The reference range was not used to interpret this result as normal/abnormal. MPV (test code = 96940-9) 9.6 fL 9.8-13.0 L NRBC/100 WBC (test code = 1203484485) 0.0 See_Comment [Automated [facility] ssage] The system which generated this result transmitted reference range: 0.0 - 10.0 /100 WBCs. The reference range was not used to interpret this result as normal/abnormal. NRBC x10^3 (test code = 3823966588) See_Comment [Automated messa ge] The system which generated this result transmitted reference range: 10*3/?L. The reference range was not used to interpret this result as normal/abnormal. GRAN MAT (NEUT) % (test code = 770-8) 36.8 % IMM GRAN % (test code = 5865155458) 0.20 % LYMPH % (test code = 736-9) 54.7 % MONO % (test code = 5905-5) 7.1 % EOS % (test code = 713-8) 0.9 % BASO % (test code = 706-2) 0.3 % GRAN MAT x10^3(ANC) (test code = 6574049506) 2.13 10*3/uL 1.99-6.95 IMM GRAN x10^3 (test code = 3859527895) 0.00-0.06 LYMPH x10^3 (test code = 731-0) 3.16 10*3/uL 1.09-3.23 MONO x10^3 (test code = 742-7) 0.41 10*3/uL 0.36-1.02 EOS x10^3 (test code = 711-2) 0.05 10*3/uL 0.06-0.53 L BASO x10^3 (test code = 704-7) 0.01-0.09 Lab Interpretation (test code = 18486-7) Abnormal [facility]. METABOLIC PANEL (19026)2023-07-03 10:47:01* Test Item Value Reference Range Interpretation Comme nts NA (test code = 5321029772) 138 mmol/L 135-145 K (test code = 2569418869) 4.5 mmol/L 3.5-5.0 Slight hemolysis CL (test code = 6484675460) 103 mmol/L 98-108 CO2 TOTAL (test code = 8755337655) 23 mmol/L 23-31 AGAP (test code = 0754989494) 12 2-16 BUN (test code = 9528796025) 16 mg/dL 7-23 Slight hemolysis GLUCOSE (test code = 4727703801) 142 mg/dL 70-110 H CREATININE (test code = 3775808116) 0.99 mg/dL 0.60-1.25 TOTAL BILI (test code = 0622581604) 1.2 mg/dL 0.1-1.1 H CALCIUM (test code = 7503140838) 9.6 mg/dL 8.6-10.6 T PROTEIN (test code = 2779461440) 8.1 g/dL 6.3-8.2 ALBUMIN (test code = 0828222678) 4.6 g/dL 3.5-5.0 ALK PHOS (test code = 0426097224) 51 U/L 34-122 Slight hemolysis ALTv (test code = 1742-6) 26 U/L 5-50 AST(SGOT) (test code = 5848894077) 32 U/L 13-40 Slight hemolysis eGFR (test code = 7933684096) 80.0 mL/min/1.73m2 KRYSTLE (test code = KRYSTLE) [...] imaging tests). Lab Interpretation (test code = 89108-8) [facility]normal [facility] 10:47:01* Test Item Value Reference Range Interpretation Comme nts LIPASE (test code = 4217001785) 955 U/L 0-220 H Lab Interpretation (test cod e = 39416-1) Abnormal [facility] WITH [id number] 10:27:34* Test Item Value Reference Range Interpretation [...] 34.5 g/dL 31.2-35.0 RDW-SD (test code = 00256-8) 39.4 fL 38.5-51.6 RDW-CV (test code = 788-0) 12.3 % 12.1-15.4 PLT (test code = 777-3) 226 See_Comment [Automated messa ge] The system which generated this result transmitted reference range: 150 - 328 10*3/?L. The reference range was not used to interpret this result as normal/abnormal. MPV (test code = 12713-0) 9.6 fL 9.8-13.0 L NRBC/100 WBC (test code = 3974608880) 0.0 See_Comment [Automated [facility] ssage] The system which generated this result transmitted reference range: 0.0 - 10.0 /100 WBCs. The reference range was not used to interpret this result as normal/abnormal. NRBC x10^3 (test code = 4123096071) See_Comment [Automated messa ge] The system which generated this result transmitted reference range: 10*3/?L. The reference range was not used to interpret this result as normal/abnormal. GRAN MAT (NEUT) % (test code = 770-8) 54.9 % IMM GRAN % (test code = 2111410983) 0.20 % LYMPH % (test code = 736-9) 36.2 % MONO % (test code = 5905-5) 7.9 % EOS % (test code = 713-8) 0.5 % BASO % (test code = 706-2) 0.3 % GRAN MAT x10^3(ANC) (test code = 8679662294) 3.63 10*3/uL 1.99-6.95 IMM GRAN x10^3 (test code = 3969692035) 0.00-0.06 LYMPH x10^3 (test code = 731-0) 2.39 10*3/uL 1.09-3.23 MONO x10^3 (test code = 742-7) 0.52 10*3/uL 0.36-1.02 EOS x10^3 (test code = 711-2) 0.03 10*3/uL 0.06-0.53 L BASO x10^3 (test code = 704-7) 0.01-0.09 Lab Interpretation (test code = 53090-1) Abnormal [facility]ELVIS W/[id number] 00:06:00 [facility] 1970 Sex: M Patient Name: NOAH PUTNAM Unit No: [id number] EXAMS: CPT CODE: [id number] CT ABD PELVIS W/CONT 85381 Reason: diffuse abd pain CT Scan of [...] thickening. Prostate gland is mildly enlarged. There waldo nodular component from the prostate gland measuring 1.7 cm protruding into the bladder base. GASTR OINTESTINAL: No significant findings. The appendix is unremarkable. IMPRESSION: No acute findings in the abdomen or pelvis. Mildly enlarged prostate with a nodular component protruding into the bladder base. Correlation with PSA is recommended. at 0006 Reported and signed by: Jennifer Bass MD CC: Jessie Gleason DO; [facility] Technologist: Cory Romero CT Trscrpt Dt/ (000)t.SDR.MA50 Orig Print D/T: S: 07/02/2023 (0009) CTDI: DLP: [facility] NAME: NOAH PUTNAM [address] [place] [address] PHYS: Jessie Fay [address] : 1970 AGE: 52 SEX: M [place], [place] [address] LOC: D.PER PHONE #: [phone] EXAM DATE: 07/01/2023 STATUS: REG ER FAX #: DCA NO: DC Dt: PAGE 1 Signed ReportTROP-I HIGH [id number] 23:55:00* Test Item Value Reference Range Interpretation [...] troponin from other clinical conditions, the Fourth Anderson Definition of Myocardial Infarction stresses clinical assessment and demonstration of a rise and/or fall in serial troponin results above the upper reference limit.Results of this assay method may be falsely depressed orelevated if patient is taking high doses of Biotin. BASIC METABOLIC [id number] 23:55:00* Test Item Value Reference Range Interpretation [...] calculation forGFR is based on the CKD-EPI (2020) calculation. This formulais race indifferent and is the recommended formula for GFRby the National Kidney Foundation for Adults.The GFR will not calculate if the sex is unknown or if thepatient's age is <18 years. CREATININE (test code = CREAT) 1.12 MG/DL 0.60-1.00 H CALCIUM (test code = CA) 9.3 MG/DL 8.7-10.5 N HEPATIC FUNCTION [id number] 23:55:00* Test Item Value Reference Range Interpretation [...] code = ALKP) 60 Units/L 50-136 N [id number] 23:55:00* Test Item Value Reference Range Interpretation Comme nts LIPASE (test code = LIP) 259 U/L 16-77 H New Reference Ranges of 16-77 U/L please reviewrevised from 73-393 U/L on 06/30/2023 CBC W/AUTO [id number] 23:24:00* Test Item Value Reference Range Interpretation [...] = BA#) 0.02 x10 3/uL 0.0-0.2 N [id number] 12:29:00* Test Item Value Reference Range Interpretation Comme [facility] LIPASE (test code = LIP) 73 Units/L 73-393 N [id number] 17:24:56* Test Item Value Reference Range Interpretation Comme [facility] LIPASE (test code = 1133662003) 283 U/L 0-220 H Lab Interpretation (test cod e = 89547-6) Abnormal [facility] METABOLIC PANEL (NA, K, CL, CO2, GLUCOSE, BUN, CREATININE, CA)2023-04-22 17:24:35* Test Item Value Reference Range Interpretation Comme [facility] NA (test code = 9454295427) 139 mmol/L 135-145 K (test code = 1344933114) 4.0 mmol/L 3.5-5.0 CL (test code = 9936942688) 106 mmol/L 98-108 CO2 TOTAL (test code = 1224866216) 25 mmol/L 23-31 AGAP (test code = 3335767938) 8 2-16 BUN (test code = 0510956090) 21 mg/dL 7-23 GLUCOSE (test code = 0105767468) 110 mg/dL 70-110 CREATININE (test code = 1087212785) 1.06 mg/dL 0.60-1.25 CALCIUM (test code = 3974399580) 8.1 mg/dL 8.6-10.6 L eGFR (test code = 2927655566) 74.0 mL/min/1.73m2 KRYSTLE (test code = KRYSTLE) [...] imaging tests). Lab Interpretation (test code = 49933-8) [facility]normal [facility] [id number] 13:57:28* Test Item Value Reference Range Interpretation Comme nts CK (test code = 8948972638) 635 U/L 33-194 H Lab Interpretation (test cod e = 81942-3) Abnormal [facility] METABOLIC PANEL (NA, K, CL, CO2, GLUCOSE, BUN, CREATININE, CA)2023-04-22 13:23:02* Test Item Value Reference Range Interpretation Comme nts NA (test code = 4824823585) 141 mmol/L 135-145 K (test code = 9851943319) 4.0 mmol/L 3.5-5.0 CL (test code = 4749010176) 107 mmol/L 98-108 CO2 TOTAL (test code = 4110195294) 27 mmol/L 23-31 AGAP (test code = 7357630164) 7 2-16 BUN (test code = 8074711816) 22 mg/dL 7-23 GLUCOSE (test code = 9662616647) 94 mg/dL 70-110 CREATININE (test code = 6367704926) 1.26 mg/dL 0.60-1.25 H CALCIUM (test code = 5281973065) 8.3 mg/dL 8.6-10.6 L eGFR (test code = 7336189629) 60.6 mL/min/1.73m2 KRYSTLE (test code = KRYSTLE) [...] imaging tests). Lab Interpretation (test code = 86770-7) [facility]normal [facility] 13:22:41* Test Item Value Reference Range Interpretation Comme nts LIPASE (test code = 6161365904) 897 U/L 0-220 H Lab Interpretation (test cod e = 29596-6) [facility]normal [facility] METABOLIC PANEL (14280)2023-04-22 09:43:42* Test Item Value Reference Range Interpretation Comme nts NA (test code = 2157222407) 140 mmol/L 135-145 K (test code = 6861264615) 3.7 mmol/L 3.5-5.0 CL (test code = 5019822992) 103 mmol/L 98-108 CO2 TOTAL (test code = 2565228852) 24 mmol/L 23-31 AGAP (test code = 6232461479) 13 2-16 BUN (test code = 6367901360) 24 mg/dL 7-23 H GLUCOSE (test code = 5199057687) 114 mg/dL 70-110 H CREATININE (test code = 6508183509) 1.42 mg/dL 0.60-1.25 H TOTAL BILI (test code = 5001560081) 0.9 mg/dL 0.1-1.1 CALCIUM (test code = 7845436758) 9.5 mg/dL 8.6-10.6 T PROTEIN (test code = 0267284085) 9.2 g/dL 6.3-8.2 H ALBUMIN (test code = 4115618361) 4.9 g/dL 3.5-5.0 ALK PHOS (test code = 1990419699) 66 U/L 34-122 ALTv (test code = 1742-6) 25 U/L 5-50 AST(SGOT) (test code = 4923239962) 37 U/L 13-40 eGFR (test code = 8552714488) 52.8 mL/min/1.73m2 KRYSTLE (test code = KRYSTLE) [...] imaging tests). Lab Interpretation (test code = 96748-7) Abnormal [facility] WITH [id number] 09:33:37* Test Item Value Reference Range Interpretation Comme nts WBC (test code = 6690-2) 8.53 See_Comment [Automated Rallyware] The system which generated this result transmitted reference range: 4.20 - 10.70 10*3/?L. The reference range was not used to interpret this result as normal/abnormal. RBC (test code = 789-8) 5.60 See_Comment H [Automated Rallyware] The system which generated this result transmitted [...] g/dL 31.2-35.0 H RDW-SD (test code = 18671-6) 40.1 fL 38.5-51.6 RDW-CV (test code = 788-0) 13.0 % 12.1-15.4 PLT (test code = 777-3) 267 See_Comment [Automated messa ge] The system which generated this result transmitted reference range: 150 - 328 10*3/?L. The reference range was not used to interpret this result as normal/abnormal. MPV (test code = 97006-5) 9.6 fL 9.8-13.0 L NRBC/100 WBC (test code = 1664874494) 0.0 See_Comment [Automated [facility] ssage] The system which generated this result transmitted reference range: 0.0 - 10.0 /100 WBCs. The reference range was not used to interpret this result as normal/abnormal. NRBC x10^3 (test code = 4529725183) See_Comment [Automated messa ge] The system which generated this result transmitted reference range: 10*3/?L. The reference range was not used to interpret this result as normal/abnormal. GRAN MAT (NEUT) % (test code = 770-8) 44.5 % IMM GRAN % (test code = 0944086149) 0.20 % LYMPH % (test code = 736-9) 43.4 % MONO % (test code = 5905-5) 10.7 % EOS % (test code = 713-8) 0.8 % BASO % (test code = 706-2) 0.4 % GRAN MAT x10^3(ANC) (test code = 2077744097) 3.80 10*3/uL 1.99-6.95 IMM GRAN x10^3 (test code = 2951167165) 0.00-0.06 LYMPH x10^3 (test code = 731-0) 3.70 10*3/uL 1.09-3.23 H MONO x10^3 (test code = 742-7) 0.91 10*3/uL 0.36-1.02 EOS x10^3 (test code = 711-2) 0.07 10*3/uL 0.06-0.53 BASO x10^3 (test code = 704-7) 0.03 10*3/uL 0.01-0.09 Lab Interpretation (test code = 05492-3) Abnormal [facility] [id number] 13:23:31* Test Item Value Reference Range Interpretation Comme nts TROPONIN I (test code = 4349990663) 0.020 ng/mL <=0.034 KRYSTLE (test code = [...] of biotin. Lab Interpretation (test code = 92606-4) Normal [facility] [id number] 13:23:31* Test Item Value Reference Range Interpretation Comme nts TROPONIN I (test code = 7127889474) 0.020 ng/mL <=0.034 KRYSTLE (test code = [...] of biotin. Lab Interpretation (test code = 90798-5) Normal [facility] (09768)2023-[facility]-16 12:58:04* Test Item Value Reference Range Interpretation Comme nts NA (test code = 0477758627) 142 mmol/L 135-145 K (test code = 5018295716) 4.0 mmol/L 3.5-5.0 CL (test code = 3942294028) 105 mmol/L 98-108 CO2 TOTAL (test code = 9194592481) 28 mmol/L 23-31 AGAP (test code = 9625256499) 9 2-16 BUN (test code = 4950332333) 11 mg/dL 7-23 GLUCOSE (test code = 5033470790) 115 mg/dL 70-110 H CREATININE (test code = 9749136916) 0.85 mg/dL 0.60-1.25 TOTAL BILI (test code = 9309303429) 0.4 mg/dL 0.1-1.1 CALCIUM (test code = 9294152712) 9.2 mg/dL 8.6-10.6 T PROTEIN (test code = 0874689690) 7.6 g/dL 6.3-8.2 ALBUMIN (test code = 5692784586) 4.4 g/dL 3.5-5.0 ALK PHOS (test code = 9384493010) 52 U/L 34-122 ALTv (test code = 1742-6) 23 U/L 5-50 AST(SGOT) (test code = 5087916132) 33 U/L 13-40 eGFR (test code = 4989563458) 95.4 mL/min/1.73m2 KRYSTLE (test code = KRYSTLE) [...] imaging tests). Lab Interpretation (test code = 23716-4) [facility]normal [facility] 12:58:04* Test Item Value Reference Range Interpretation Comme nts LIPASE (test code = 3994437336) 492 U/L 0-220 H Lab Interpretation (test cod e = 66879-4) [facility]normal [facility] (37638)2023-04-16 12:58:04* Test Item Value Reference Range Interpretation Comme nts NA (test code = 0089976219) 142 mmol/L 135-145 K (test code = 3540067915) 4.0 mmol/L 3.5-5.0 CL (test code = 9709690517) 105 mmol/L 98-108 CO2 TOTAL (test code = 8098313019) 28 mmol/L 23-31 AGAP (test code = 8438592466) 9 2-16 BUN (test code = 0820496466) 11 mg/dL 7-23 GLUCOSE (test code = 3461874960) 115 mg/dL 70-110 H CREATININE (test code = 0976613863) 0.85 mg/dL 0.60-1.25 TOTAL BILI (test code = 5364594425) 0.4 mg/dL 0.1-1.1 CALCIUM (test code = 4050130239) 9.2 mg/dL 8.6-10.6 T PROTEIN (test code = 5837509836) 7.6 g/dL 6.3-8.2 ALBUMIN (test code = 7187444795) 4.4 g/dL 3.5-5.0 ALK PHOS (test code = 9988471604) 52 U/L 34-122 ALTv (test code = 1742-6) 23 U/L 5-50 AST(SGOT) (test code = 9244503626) 33 U/L 13-40 eGFR (test code = 4404699798) 95.4 mL/min/1.73m2 KRYSTLE (test code = KRYSTLE) [...] imaging tests). Lab Interpretation (test code = 63736-4) [facility]normal [facility] 12:58:04* Test Item Value Reference Range Interpretation Comme nts LIPASE (test code = 5455988743) 492 U/L 0-220 H Lab Interpretation (test cod e = 23506-9) Abnormal [facility] WITH [id number] 12:50:01* Test Item Value Reference Range Interpretation Comme nts WBC (test code = 6690-2) 6.75 See_Comment [Automated messa ge] The system which [...] 34.9 g/dL 31.2-35.0 RDW-SD (test code = 98416-8) 41.4 fL 38.5-51.6 RDW-CV (test code = 788-0) 13.2 % 12.1-15.4 PLT (test code = 777-3) 219 See_Comment [Automated messa ge] The system which generated this result transmitted reference range: 150 - 328 10*3/?L. The reference range was not used to interpret this result as normal/abnormal. MPV (test code = 89829-4) 9.5 fL 9.8-13.0 L NRBC/100 WBC (test code = 6062377542) 0.0 See_Comment [Automated [facility] ssage] The system which generated this result transmitted reference range: 0.0 - 10.0 /100 WBCs. The reference range was not used to interpret this result as normal/abnormal. NRBC x10^3 (test code = 5457835515) See_Comment [Automated messa ge] The system which generated this result transmitted reference range: 10*3/?L. The reference range was not used to interpret this result as normal/abnormal. GRAN MAT (NEUT) % (test code = 770-8) 46.9 % IMM GRAN % (test code = 0827722673) 0.10 % LYMPH % (test code = 736-9) 43.4 % MONO % (test code = 5905-5) 8.4 % EOS % (test code = 713-8) 0.9 % BASO % (test code = 706-2) 0.3 % GRAN MAT x10^3(ANC) (test code = 8241698400) 3.16 10*3/uL 1.99-6.95 IMM GRAN x10^3 (test code = 1171978186) 0.00-0.06 LYMPH x10^3 (test code = 731-0) 2.93 10*3/uL 1.09-3.23 MONO x10^3 (test code = 742-7) 0.57 10*3/uL 0.36-1.02 EOS x10^3 (test code = 711-2) 0.06 10*3/uL 0.06-0.53 BASO x10^3 (test code = 704-7) 0.01-0.09 Lab Interpretation (test code = 77981-4) Abnormal [facility] WITH [id number] 12:50:01* Test Item Value Reference Range Interpretation Comme nts WBC (test code = 6690-2) 6.75 See_Comment [Automated messa ge] The system which generated this result transmitted reference range: 4.20 - 10.70 10*3/?L. The reference range was not used to interpret this result as normal/abnormal. RBC (test code = 789-8) 5.08 See_Comment [Automated [employer] ge] The system which generated this result [...] 34.9 g/dL 31.2-35.0 RDW-SD (test code = 12728-4) 41.4 fL 38.5-51.6 RDW-CV (test code = 788-0) 13.2 % 12.1-15.4 PLT (test code = 777-3) 219 See_Comment [Automated messa ge] The system which generated this result transmitted reference range: 150 - 328 10*3/?L. The reference range was not used to interpret this result as normal/abnormal. MPV (test code = 05244-0) 9.5 fL 9.8-13.0 L NRBC/100 WBC (test code = 2927843951) 0.0 See_Comment [Automated [facility] ssage] The system which generated this result transmitted reference range: 0.0 - 10.0 /100 WBCs. The reference range was not used to interpret this result as normal/abnormal. NRBC x10^3 (test code = 0880002043) See_Comment [Automated Footbal[employer] ge] The system which generated this result transmitted reference range: 10*3/?L. The reference range was not used to interpret this result as normal/abnormal. GRAN MAT (NEUT) % (test code = 770-8) 46.9 % IMM GRAN % (test code = 1917678411) 0.10 % LYMPH % (test code = 736-9) 43.4 % MONO % (test code = 5905-5) 8.4 % EOS % (test code = 713-8) 0.9 % BASO % (test code = 706-2) 0.3 % GRAN MAT x10^3(ANC) (test code = 9310306975) 3.16 10*3/uL 1.99-6.95 IMM GRAN x10^3 (test code = 6013286474) 0.00-0.06 LYMPH x10^3 (test code = 731-0) 2.93 10*3/uL 1.09-3.23 MONO x10^3 (test code = 742-7) 0.57 10*3/uL 0.36-1.02 EOS x10^3 (test code = 711-2) 0.06 10*3/uL 0.06-0.53 BASO x10^3 (test code = 704-7) 0.01-0.09 Lab Interpretation (test code = 20286-5) [facility]normal [facility]2023-02-13 21:02:35* Test Item Value Reference Range Interpretation Comme [facility] POCT GLU (test code = 8039227301) 118 mg/dL 70-110 H Lab Interpretation (test cod e = 03610-4) [facility]normal [facility] [id number] 05:51:48* Test Item Value Reference Range Interpretation Comme [facility] WBC (test code = 6690-2) 7.64 [...] 34.4 g/dL 31.2-35.0 RDW-SD (test code = 37313-2) 38.5 fL 38.5-51.6 RDW-CV (test code = 788-0) 12.5 % 12.1-15.4 PLT (test code = 777-3) 216 See_Comment [Automated messa ge] The system which generated this result transmitted reference range: 150 - 328 10*3/?L. The reference range was not used to interpret this result as normal/abnormal. MPV (test code = 49416-1) 10.0 fL 9.8-13.0 NRBC/100 WBC (test code = 6846298439) 0.0 See_Comment [Automated me ssage] The system which generated this result transmitted reference range: 0.0 - 10.0 /100 WBCs. The reference range was not used to interpret this result as normal/abnormal. NRBC x10^3 (test code = 8241880069) See_Comment [Automated messa ge] The system which generated this result transmitted reference range: 10*3/?L. The reference range was not used to interpret this result as normal/abnormal. SEG % (test code = 82634-0) 36 % 33-76 LYMPH % (test code = 99836-0) 48 % 14-54 MONO % (test code = 50683-3) 13 % 0-4 H EOS % (test code = 84235-6) 3 % 0-3 ANC (test code = 753-4) 2.75 10*3/uL 1.99-6.95 Lab Interpretation (test code = 87643-9) Abnormal [facility]. METABOLIC PANEL (34909)2022-12-09 05:24:19* Test Item Value Reference Range Interpretation Comme nts NA (test code = 2302835650) 139 mmol/L 135-145 K (test code = 6881906408) 3.8 mmol/L 3.5-5.0 CL (test code = 3141575529) 105 mmol/L 98-108 CO2 TOTAL (test code = 0219764983) 24 mmol/L 23-31 AGAP (test code = 4652794035) 10 2-16 BUN (test code = 2872592193) 11 mg/dL 7-23 GLUCOSE (test code = 9481093446) 115 mg/dL 70-110 H CREATININE (test code = 0794950794) 0.93 mg/dL 0.60-1.25 TOTAL BILI (test code = 2420889317) 0.8 mg/dL 0.1-1.1 CALCIUM (test code = 7115028683) 9.3 mg/dL 8.6-10.6 T PROTEIN (test code = 9430517470) 8.0 g/dL 6.3-8.2 ALBUMIN (test code = 0588818961) 4.5 g/dL 3.5-5.0 ALK PHOS (test code = 3082044074) 50 U/L 34-122 ALTv (test code = 1742-6) 22 U/L 5-50 AST(SGOT) (test code = 5767250887) 36 U/L 13-40 eGFR (test code = 6646796540) 86.0 mL/min/1.73m2 KRYSTLE (test code = KRYSTLE) [...] imaging tests). Lab Interpretation (test code = 83553-9) [facility] 05:24:18* Test Item Value Reference Range Interpretation Comme nts LIPASE (test code = 4606194400) 271 U/L 0-220 H Lab Interpretation (test cod e = 04835-9) Abnormal [facility] with [id number] 22:09:52* Test Item Value Reference Range Interpretation [...] g/dL 31.2-35.0 H RDW-SD (test code = 73189-5) 39.2 fL 38.5-51.6 RDW-CV (test code = 788-0) 12.9 % 12.1-15.4 PLT (test code = 777-3) See_Comment [Automated messa ge] The system which generated this result transmitted reference range: 150 - 328 10*3/?L. The reference range was not used to interpret this result as normal/abnormal. MPV (test code = 01865-5) 9.0 fL 9.8-13.0 L NRBC/100 WBC (test code = 2453347709) See_Comment [Automated [facility] ssage] The system which generated this result transmitted reference range: 0.0 - 10.0 /100 WBCs. The reference range was not used to interpret this result as normal/abnormal. NRBC x10^3 (test code = 3210319706) See_Comment [Automated messa ge] The system which generated this result transmitted reference range: 10*3/?L. The reference range was not used to interpret this result as normal/abnormal. GRAN MAT (NEUT) % (test code = 770-8) 35.3 % IMM GRAN % (test code = 0558932630) 0.00 % LYMPH % (test code = 736-9) 56.0 % MONO % (test code = 5905-5) 7.9 % EOS % (test code = 713-8) 0.4 % BASO % (test code = 706-2) 0.4 % GRAN MAT x10^3(ANC) (test code = 0606906562) 1.87 10*3/uL 1.99-6.95 L IMM GRAN x10^3 (test code = 6800292610) 0.00-0.06 LYMPH x10^3 (test code = 731-0) 2.97 10*3/uL 1.09-3.23 MONO x10^3 (test code = 742-7) 0.42 10*3/uL 0.36-1.02 EOS x10^3 (test code = 711-2) 0.06-0.53 L BASO x10^3 (test code = 704-7) 0.01-0.09 Lab Interpretation (test code = 31942-2) Abnormal [facility] METABOLIC PANEL (NA, K, CL, CO2, GLUCOSE, BUN, CREATININE, CA)2022-10-12 00:25:13* Test Item Value Reference Range Interpretation Comme nts NA (test code = 1469765857) 136 mmol/L 135-145 K (test code = 6730483151) 3.5 mmol/L 3.5-5.0 CL (test code = 8185272917) 103 mmol/L 98-108 CO2 TOTAL (test code = 9620118845) 26 mmol/L 23-31 AGAP (test code = 9084109225) 2-16 BUN (test code = 3176660014) 14 mg/dL 7-23 GLUCOSE (test code = 1285002654) 157 mg/dL 70-110 H CREATININE (test code = 7563179051) 0.80 mg/dL 0.60-1.25 CALCIUM (test code = 6839506641) 8.4 mg/dL 8.6-10.6 L eGFR (test code = 6872158858) mL/min/1.73m2 KRYSTLE (test code = KRYSTLE) Association [...] imaging tests). Lab Interpretation (test code = 09702-9) Abnormal [facility] (94227) (ALB,T.PRO,BILI T,BU/BC,ALT,AST,ALK PHOS)2022-10-12 00:25:13* Test Item Value Reference Range Interpretation Comme nts TOTAL BILI (test code = 7915950499) 1.2 mg/dL 0.1-1.1 H BILI UNCON (test code = 0036457879) 1.0 mg/dL 0.1-1.1 BILI CONJ (test code = 6811511951) 0.0 mg/dL 0.0-0.3 T PROTEIN (test code = 0364224126) 7.1 g/dL 6.3-8.2 ALBUMIN (test code = 1870045447) 4.0 g/dL 3.5-5.0 ALK PHOS (test code = 9960420090) 59 U/L 34-122 ALTv (test code = 1742-6) 38 U/L 5-50 AST(SGOT) (test code = 3538966510) 61 U/L 13-40 H Lab Interpretation (test cod e = 06223-3) [facility]normal [facility] Confirmation (Lab Only)2022-10-11 21:35:47* Test Item Value Reference Range Interpretation Comme nts ABO & RH (test code = 20) O Positive Performed at [facility] Laboratory Services - [facility] Blood [address] Free: [phone] No. [id number] [facility] and Screen - ONCE [id number] 21:25:51* Test Item Value Reference Range Interpretation Comme nts ABO & RH (test code = 20) O POSITIVE Performed at [facility] Laboratory Services - [place] [address]Toll Free: [phone] No. [id number] IAT (test code = 1185) Negative Performed at [facility] Laboratory Services - [place] [address]Toll Free: [phone] No. [id number] [facility] WITH [id number] 20:47:43* Test Item Value Reference Range Interpretation [...] g/dL 31.2-35.0 H RDW-SD (test code = 09009-1) 41.1 fL 38.5-51.6 RDW-CV (test code = 788-0) 13.2 % 12.1-15.4 PLT (test code = 777-3) See_Comment [Automated messa ge] The system which generated this result transmitted reference range: 150 - 328 10*3/?L. The reference range was not used to interpret this result as normal/abnormal. MPV (test code = 08137-3) 9.5 fL 9.8-13.0 L NRBC/100 WBC (test code = 9137847717) See_Comment [Automated [facility] ssage] The system which generated this result transmitted reference range: 0.0 - 10.0 /100 WBCs. The reference range was not used to interpret this result as normal/abnormal. NRBC x10^3 (test code = 3315067049) See_Comment [Automated messa ge] The system which generated this result transmitted reference range: 10*3/?L. The reference range was not used to interpret this result as normal/abnormal. GRAN MAT (NEUT) % (test code = 770-8) 38.2 % IMM GRAN % (test code = 1220273896) 0.00 % LYMPH % (test code = 736-9) 53.7 % MONO % (test code = 5905-5) 7.5 % EOS % (test code = 713-8) 0.3 % BASO % (test code = 706-2) 0.3 % GRAN MAT x10^3(ANC) (test code = 3261310693) 2.46 10*3/uL 1.99-6.95 IMM GRAN x10^3 (test code = 6715168365) 0.00-0.06 LYMPH x10^3 (test code = 731-0) 3.46 10*3/uL 1.09-3.23 H MONO x10^3 (test code = 742-7) 0.48 10*3/uL 0.36-1.02 EOS x10^3 (test code = 711-2) 0.06-0.53 L BASO x10^3 (test code = 704-7) 0.01-0.09 Lab Interpretation (test code = 24567-3) Abnormal [facility] Hospital[facility]IPID PANEL (73095)(TOTAL CHOLESTEROL, TRIGLYCERIDES, HDL)2022-10-11 20:32:44* Test Item Value Reference Range Interpretation Comme nts CHOL (test code = 6523889476) 195 mg/dL 120-200 HDL (test code = 9589877937) 36 mg/dL See_Comment L [Automated messa ge] The system which generated this result transmitted reference range: >=40. The reference range was not used to interpret this result as normal/abnormal. HDLC RATIO (test code = 0498447119) See_Comment H [Automated [employer] ge] The system which generated this result transmitted reference range: <=5.0. The reference range was not used to interpret this result as normal/abnormal. TRIG (test code = 6907589957) 84 mg/dL 30-170 LDL CHOL (test code = 63765-5) 142 mg/dL See_Comment [Automated messa ge] The system which generated this result transmitted reference range: <=160. The reference range was not used to interpret this result as normal/abnormal. VLDL (test code = 1581168331) 17 mg/dL 5-60 Lab Interpretation (test code = 25687-1) Abnormal [facility]MINAL [id number] 14:23:55* Test Item Value Reference Range Interpretation Comme nts NT-proBNP (test code = 2904211245) See_Comment [Automated message] The system which generated this result transmitted reference range: <=125. The reference range was not used to interpret this result as normal/abnormal. KRYSTLE (test code = KRYSTLE) Biotin has been reported to cause a negative bias, interpret results relative to patient's use of biotin. Lab Interpretation (test code = 83487-5) Normal [facility] THRMPLAS [id number] 14:23:25* Test Item Value Reference Range Interpretation Comme nts APTT Patient (test code = 3173-2) See_Comment [Automated message] The system which generated this result transmitted reference range: 23 - 38 Seconds. The reference range was not used to interpret this result as normal/abnormal. KRYSTLE (test code = KRYSTLE) The [facility] patient population mean normal value for aPTT is 30 seconds. Lab Interpretation (test code = 31420-8) Normal [facility]2023-[facility]-28 14:23:05* Test Item Value Reference Range Interpretation Comme nts LIPASE (test code = 4377735910) 502 U/L 0-220 H Lab Interpretation (test cod e = 49147-5) [facility]normal [facility]OLIC PAN[facility] (43916)2022-10-11 14:23:05* Test Item Value Reference Range Interpretation Comme nts NA (test code = 9099450042) 139 mmol/L 135-145 K (test code = 9159918729) 5.0 mmol/L 3.5-5.0 Slight hemolysis CL (test code = 2416758251) 103 mmol/L 98-108 CO2 TOTAL (test code = 7727460223) 28 mmol/L 23-31 AGAP (test code = 6399030494) 2-16 BUN (test code = 9590312800) 17 mg/dL 7-23 Slight hemolysis GLUCOSE (test code = 5066034519) 103 mg/dL 70-110 CREATININE (test code = 8233188180) 0.80 mg/dL 0.60-1.25 TOTAL BILI (test code = 1182010910) 1.6 mg/dL 0.1-1.1 H CALCIUM (test code = 2348700699) 9.0 mg/dL 8.6-10.6 T PROTEIN (test code = 5294804688) 8.4 g/dL 6.3-8.2 H ALBUMIN (test code = 2012236792) 4.8 g/dL 3.5-5.0 ALK PHOS (test code = 9244830393) 57 U/L 34-122 Slight hemolysis ALTv (test code = 1742-6) 49 U/L 5-50 AST(SGOT) (test code = 3528471678) 77 U/L 13-40 H Slight hemolysis eGFR (test code = 8474477336) mL/min/1.73m2 KRYSTLE (test code = KRYSTLE) Association [...] imaging tests). Lab Interpretation (test code = 34003-3) Abnormal [facility] [id number] 14:23:05* Test Item Value Reference Range Interpretation Comments TROPONIN I (test code = 7993731892) 0.018 ng/mL See_Comment [Automated message] The system [...] of biotin. Lab Interpretation (test code = 93852-2) Normal [facility] HospitalPROTHROMBIN TIME / [id number] 14:20:24* Test Item Value Reference Range Interpretation [...] the indications. Lab Interpretation (test code = 10592-3) Normal [facility] WITH [id number] 13:55:05* Test Item Value Reference Range Interpretation [...] 34.9 g/dL 31.2-35.0 RDW-SD (test code = 55927-7) 40.4 fL 38.5-51.6 RDW-CV (test code = 788-0) 13.0 % 12.1-15.4 PLT (test code = 777-3) See_Comment [Automated messa ge] The system which generated this result transmitted reference range: 150 - 328 10*3/?L. The reference range was not used to interpret this result as normal/abnormal. MPV (test code = 35239-3) 9.1 fL 9.8-13.0 L NRBC/100 WBC (test code = 5939617473) See_Comment [Automated me ssage] The system which generated this result transmitted reference range: 0.0 - 10.0 /100 WBCs. The reference range was not used to interpret this result as normal/abnormal. NRBC x10^3 (test code = 2919685653) See_Comment [Automated messa ge] The system which generated this result transmitted reference range: 10*3/?L. The reference range was not used to interpret this result as normal/abnormal. GRAN MAT (NEUT) % (test code = 770-8) 53.2 % IMM GRAN % (test code = 3398737891) 0.10 % LYMPH % (test code = 736-9) 36.6 % MONO % (test code = 5905-5) 9.3 % EOS % (test code = 713-8) 0.5 % BASO % (test code = 706-2) 0.3 % GRAN MAT x10^3(ANC) (test code = 2934022757) 4.25 10*3/uL 1.99-6.95 IMM GRAN x10^3 (test code = 1061116368) 0.00-0.06 LYMPH x10^3 (test code = 731-0) 2.92 10*3/uL 1.09-3.23 MONO x10^3 (test code = 742-7) 0.74 10*3/uL 0.36-1.02 EOS x10^3 (test code = 711-2) 0.04 10*3/uL 0.06-0.53 L BASO x10^3 (test code = 704-7) 0.01-0.09 Lab Interpretation (test code = 14039-5) [facility]normal [facility]OLIC PAN[facility] (34286)2022-06-09 13:23:22* Test Item Value Reference Range Interpretation Comme nts NA (test code = 5209434358) 138 mmol/L 135-145 K (test code = 2872558675) 4.5 mmol/L 3.5-5 CL (test code = 4877001901) 106 mmol/L 98-108 CO2 TOTAL (test code = 6010705482) 24 mmol/L 23-31 AGAP (test code = 8590121496) 2-16 BUN (test code = 8605676069) 18 mg/dL 7-23 GLUCOSE (test code = 0377980477) 97 mg/dL 70-110 CREATININE (test code = 2381601388) 0.98 mg/dL 0.6-1.25 TOTAL BILI (test code = 6718126469) 0.5 mg/dL 0.1-1.1 CALCIUM (test code = 9232363914) 9.3 mg/dL 8.6-10.6 T PROTEIN (test code = 4368458600) 7.3 g/dL 6.3-8.2 ALBUMIN (test code = 1372639525) 4.5 g/dL 3.5-5 ALK PHOS (test code = 1030138620) 65 U/L 34-122 ALTv (test code = 1742-6) 27 U/L 5-50 AST(SGOT) (test code = 6394511358) 33 U/L 13-40 eGFR (test code = 7208553716) mL/min/1.73m2 KRYSTLE (test code = KRYSTLE) Association [...] or urine or abnormalities in imaging tests). [facility] 13:23:01* Test Item Value Reference Range Interpretation Comme nts LIPASE (test code = 3716803604) 596 U/L 0-220 H Lab Interpretation (test cod e = 19830-1) [facility]normal [facility] WITH [id number] 13:09:00* Test Item Value Reference Range Interpretation Comme nts WBC (test code = 6690-2) See_Comment [Automated [employer] The system which generated this result transmitted reference range: 4.20 - 10.70 10*3/?L. The reference range was not used to interpret this result as normal/abnormal. RBC (test code = 789-8) See_Comment [Automated [employer] The system which generated this result transmitted [...] g/dL 31.2-35 H RDW-SD (test code = 17660-3) 38.3 fL 38.5-51.6 L RDW-CV (test code = 788-0) 12.3 % 12.1-15.4 PLT (test code = 777-3) See_Comment [Automated [employer] The system which generated this result transmitted reference range: 150 - 328 10*3/?L. The reference range was not used to interpret this result as normal/abnormal. MPV (test code = 54725-0) 9.2 fL 9.8-13 L NRBC/100 WBC (test code = 7342868224) See_Comment [Automated me ssage] The system which generated this result transmitted reference range: 0.0 - 10.0 /100 WBCs. The reference range was not used to interpret this result as normal/abnormal. NRBC x10^3 (test code = 3760884405) See_Comment [Automated messa ge] The system which generated this result transmitted reference range: 10*3/?L. The reference range was not used to interpret this result as normal/abnormal. GRAN MAT (NEUT) % (test code = 770-8) 47.3 % IMM GRAN % (test code = 8365382961) 0.30 % LYMPH % (test code = 736-9) 43.8 % MONO % (test code = 5905-5) 7.8 % EOS % (test code = 713-8) 0.5 % BASO % (test code = 706-2) 0.3 % GRAN MAT x10^3(ANC) (test code = 7013300454) 3.04 10*3/uL 1.99-6.95 IMM GRAN x10^3 (test code = 5837402630) 0-0.06 LYMPH x10^3 (test code = 731-0) 2.81 10*3/uL 1.09-3.23 MONO x10^3 (test code = 742-7) 0.50 10*3/uL 0.36-1.02 EOS x10^3 (test code = 711-2) 0.03 10*3/uL 0.06-0.53 L BASO x10^3 (test code = 704-7) 0.01-0.09 Lab Interpretation (test code = 96182-7) Abnormal [facility] METABOLIC PANEL (NA, K, CL, CO2, GLUCOSE, BUN, CREATININE, CA)2021-11-01 10:40:12* Test Item Value Reference Range Interpretation Comme nts NA (test code = 4244239196) 136 mmol/L 135-145 K (test code = 1044453103) 4.2 mmol/L 3.5-5.0 CL (test code = 2777188603) 104 mmol/L 98-108 CO2 TOTAL (test code = 1742821210) 31 mmol/L 23-31 AGAP (test code = 0307186461) 2-16 L BUN (test code = 4645669925) 15 mg/dL 7-23 GLUCOSE (test code = 0568790825) 91 mg/dL 70-110 CREATININE (test code = 1294650643) 0.96 mg/dL 0.60-1.25 CALCIUM (test code = 4581224677) 8.5 mg/dL 8.6-10.6 L eGFR (test code = 1850009938) mL/min/1.73m2 KRYSTLE (test code = KRYSTLE) Association [...] imaging tests). Lab Interpretation (test code = 69231-3) [facility] Test Item Value Reference Range Interpretation Comme nts MAGNESIUM (test code = 7630759299) 1.7 mg/dL 1.7-2.4 Lab Interpretation (test cod e = 04526-5) Normal [facility]:39:52* Test Item Value Reference Range Interpretation Comme nts PHOSPHORUS (test code = 6094205003) 4.4 mg/dL 2.5-5.0 Lab Interpretation (test cod e = 85987-9) Normal [facility] [id number] 10:25:11* Test Item Value Reference Range Interpretation [...] 34.3 g/dL 31.2-35.0 RDW-SD (test code = 21245-6) 38.5 fL 38.5-51.6 RDW-CV (test code = 788-0) 12.3 % 12.1-15.4 PLT (test code = 777-3) See_Comment [Automated messa ge] The system which generated this result transmitted reference range: 150 - 328 10*3/?L. The reference range was not used to interpret this result as normal/abnormal. MPV (test code = 05633-7) 9.6 fL 9.8-13.0 L NRBC/100 WBC (test code = 3764077814) See_Comment [Automated me ssage] The system which generated this result transmitted reference range: 0.0 - 10.0 /100 WBCs. The reference range was not used to interpret this result as normal/abnormal. NRBC x10^3 (test code = 8701252776) <0.01 See_Comment [Automated messa ge] The system which generated this result transmitted reference range: 10*3/?L. The reference range was not used to interpret this result as normal/abnormal. GRAN MAT (NEUT) % (test code = 770-8) 49.5 % IMM GRAN % (test code = 6295659430) 0.30 % LYMPH % (test code = 736-9) 39.4 % MONO % (test code = 5905-5) 9.7 % EOS % (test code = 713-8) 0.8 % BASO % (test code = 706-2) 0.3 % GRAN MAT x10^3(ANC) (test code = 3618167779) 3.13 10*3/uL 1.99-6.95 IMM GRAN x10^3 (test code = 0653429729) <0.03 0.00-0.06 LYMPH x10^3 (test code = 731-0) 2.49 10*3/uL 1.09-3.23 MONO x10^3 (test code = 742-7) 0.61 10*3/uL 0.36-1.02 EOS x10^3 (test code = 711-2) 0.05 10*3/uL 0.06-0.53 L BASO x10^3 (test code = 704-7) <0.03 0.01-0.09 Lab Interpretation (test code = 98887-1) [facility]normal [facility] [id number] 17:32:56* Test Item Value Reference Range Interpretation Comme nts NT-proBNP (test code = 7513745972) 13 pg/mL See_Comment [Automated message] The system which generated this result transmitted reference range: <=125. The reference range was not used to interpret this result as normal/abnormal. KRYSTLE (test code = KRYSTLE) Biotin has been reported to cause a negative bias, interpret results relative to patient's use of biotin. Lab Interpretation (test code = 64652-6) Normal [facility] [id number] 10:50:49* Test Item Value Reference Range Interpretation Comme nts NT-proBNP (test code = 8824169601) <11 See_Comment [Automated message] The system which generated this result transmitted reference range: <=125 pg/mL. The reference range was not used to interpret this result as normal/abnormal. KRYSTLE (test code = KRYSTLE) Biotin has been reported to cause a negative bias, interpret results relative to patient's use of biotin. Lab Interpretation (test code = 12353-3) Normal [facility] [id number] 10:36:56* Test Item Value Reference Range Interpretation Comments TROPONIN I (test code = 8406031995) 0.004 ng/mL See_Comment [Automated message] The system [...] of biotin. Lab Interpretation (test code = 41910-8) Normal [facility]OL[facility] (36613)2021-10-31 10:33:50* Test Item Value Reference Range Interpretation Comme nts NA (test code = 7213911185) 139 mmol/L 135-145 K (test code = 2973206475) 4.0 mmol/L 3.5-5.0 CL (test code = 6420539012) 109 mmol/L 98-108 H CO2 TOTAL (test code = 5061147775) 27 mmol/L 23-31 AGAP (test code = 8237099640) 2-16 BUN (test code = 3786755622) 16 mg/dL 7-23 GLUCOSE (test code = 6326206151) 97 mg/dL 70-110 CREATININE (test code = 9083431721) 1.00 mg/dL 0.60-1.25 TOTAL BILI (test code = 2609392400) 1.0 mg/dL 0.1-1.1 CALCIUM (test code = 3231608328) 8.7 mg/dL 8.6-10.6 T PROTEIN (test code = 4644989284) 7.9 g/dL 6.3-8.2 ALBUMIN (test code = 2459020150) 4.4 g/dL 3.5-5.0 ALK PHOS (test code = 5618904443) 60 U/L 34-122 ALTv (test code = 1742-6) 56 U/L 5-50 H AST(SGOT) (test code = 0206712464) 49 U/L 13-40 H eGFR (test code = 8797175027) mL/min/1.73m2 KRYSTLE (test code = KRYSTLE) Association [...] imaging tests). Lab Interpretation (test code = 76655-4) [facility]normal [facility] HospitalMagnesium [id number] 10:25:32* Test Item Value Reference Range Interpretation Comme nts MAGNESIUM (test code = 5759936939) 1.8 mg/dL 1.7-2.4 Lab Interpretation (test cod e = 03874-9) Normal [facility] 10:25:12* Test Item Value Reference Range Interpretation Comme nts PHOSPHORUS (test code = 8809736341) 3.9 mg/dL 2.5-5.0 Lab Interpretation (test cod e = 40409-7) Normal [facility]CRE[facility] [id number] 10:24:52* Test Item Value Reference Range Interpretation Comme nts CK (test code = 0183058067) 215 U/L 33-194 H Lab Interpretation (test cod e = 15002-7) [facility]normal [facility] with [id number] 10:18:09* Test Item Value Reference Range Interpretation Comme nts WBC (test code = 6690-2) See_Comment [Automated [employer]] The system which generated this result transmitted reference range: 4.20 - 10.70 10*3/?L. The reference range was not used to interpret this result as normal/abnormal. RBC (test code = 789-8) See_Comment [Automated [employer]] The system which generated this result transmitted [...] 33.9 g/dL 31.2-35.0 RDW-SD (test code = 12771-6) 41.3 fL 38.5-51.6 RDW-CV (test code = 788-0) 13.0 % 12.1-15.4 PLT (test code = 777-3) See_Comment [Automated messa ge] The system which generated this result transmitted reference range: 150 - 328 10*3/?L. The reference range was not used to interpret this result as normal/abnormal. MPV (test code = 84401-1) 10.0 fL 9.8-13.0 NRBC/100 WBC (test code = 3403143049) See_Comment [Automated [facility] ssage] The system which generated this result transmitted reference range: 0.0 - 10.0 /100 WBCs. The reference range was not used to interpret this result as normal/abnormal. NRBC x10^3 (test code = 9454847413) <0.01 See_Comment [Automated messa ge] The system which generated this result transmitted reference range: 10*3/?L. The reference range was not used to interpret this result as normal/abnormal. GRAN MAT (NEUT) % (test code = 770-8) 46.4 % IMM GRAN % (test code = 7098345862) 0.20 % LYMPH % (test code = 736-9) 44.0 % MONO % (test code = 5905-5) 8.3 % EOS % (test code = 713-8) 0.7 % BASO % (test code = 706-2) 0.4 % GRAN MAT x10^3(ANC) (test code = 6237049845) 3.73 10*3/uL 1.99-6.95 IMM GRAN x10^3 (test code = 7912403193) <0.03 0.00-0.06 LYMPH x10^3 (test code = 731-0) 3.55 10*3/uL 1.09-3.23 H MONO x10^3 (test code = 742-7) 0.67 10*3/uL 0.36-1.02 EOS x10^3 (test code = 711-2) 0.06 10*3/uL 0.06-0.53 BASO x10^3 (test code = 704-7) 0.03 10*3/uL 0.01-0.09 Lab Interpretation (test code = 05887-2) [facility]normal [facility] HospitalPROTHROMBIN TIME / [id number] 10:18:09* Test Item Value Reference Range Interpretation [...] the indications. Lab Interpretation (test code = 47611-2) Normal [facility] [id number] 07:43:50* Test Item Value Reference Range Interpretation Comments TROPONIN I (test code = 6125739546) 0.005 ng/mL See_Comment [Automated message] The system [...] of biotin. Lab Interpretation (test code = 68801-7) Normal [facility]OLIC [facility]EL (36235)2021-10-30 20:56:25* Test Item Value Reference Range Interpretation Comme nts NA (test code = 6021538960) 139 mmol/L 135-145 K (test code = 8481317340) 4.8 mmol/L 3.5-5.0 CL (test code = 7034355754) 105 mmol/L 98-108 CO2 TOTAL (test code = 8372634945) 26 mmol/L 23-31 AGAP (test code = 8287180210) 2-16 BUN (test code = 5476196485) 18 mg/dL 7-23 GLUCOSE (test code = 3692985410) 135 mg/dL 70-110 H CREATININE (test code = 0469558913) 0.98 mg/dL 0.60-1.25 TOTAL BILI (test code = 3442177629) 0.8 mg/dL 0.1-1.1 CALCIUM (test code = 9837378697) 10.0 mg/dL 8.6-10.6 T PROTEIN (test code = 6503505219) 10.3 g/dL 6.3-8.2 H ALBUMIN (test code = 3566907038) 5.5 g/dL 3.5-5.0 H ALK PHOS (test code = 2033792413) 74 U/L 34-122 ALTv (test code = 1742-6) 69 U/L 5-50 H AST(SGOT) (test code = 6111683170) 59 U/L 13-40 H eGFR (test code = 3071011088) mL/min/1.73m2 KRYSTLE (test code = KRYSTLE) Association [...] imaging tests). Lab Interpretation (test code = 32929-9) [facility]normal [facility]LIPASE2022-[facility] 20:56:05* Test Item Value Reference Range Interpretation Comme nts LIPASE (test code = 3476612910) 70 U/L 0-220 Lab Interpretation (test cod e = 16018-0) Normal [facility] WITH [id number] 20:34:20* Test Item Value Reference Range Interpretation Comme nts WBC (test code = 6690-2) See_Comment H [Automated Footbalistica ge] The system which generated this result [...] 34.3 g/dL 31.2-35.0 RDW-SD (test code = 19752-5) 40.6 fL 38.5-51.6 RDW-CV (test code = 788-0) 12.8 % 12.1-15.4 PLT (test code = 777-3) See_Comment [Automated messa ge] The system which generated this result transmitted reference range: 150 - 328 10*3/?L. The reference range was not used to interpret this result as normal/abnormal. MPV (test code = 15550-8) 9.2 fL 9.8-13.0 L NRBC/100 WBC (test code = 0368150794) See_Comment [Automated me ssage] The system which generated this result transmitted reference range: 0.0 - 10.0 /100 WBCs. The reference range was not used to interpret this result as normal/abnormal. NRBC x10^3 (test code = 5915690462) <0.01 See_Comment [Automated messa ge] The system which generated this result transmitted reference range: 10*3/?L. The reference range was not used to interpret this result as normal/abnormal. GRAN MAT (NEUT) % (test code = 770-8) 67.1 % IMM GRAN % (test code = 7861641391) 0.40 % LYMPH % (test code = 736-9) 24.5 % MONO % (test code = 5905-5) 7.6 % EOS % (test code = 713-8) 0.1 % BASO % (test code = 706-2) 0.3 % GRAN MAT x10^3(ANC) (test code = 9866231518) 7.34 10*3/uL 1.99-6.95 H IMM GRAN x10^3 (test code = 6092680314) 0.04 10*3/uL 0.00-0.06 LYMPH x10^3 (test code = 731-0) 2.67 10*3/uL 1.09-3.23 MONO x10^3 (test code = 742-7) 0.83 10*3/uL 0.36-1.02 EOS x10^3 (test code = 711-2) <0.03 0.06-0.53 L BASO x10^3 (test code = 704-7) 0.03 10*3/uL 0.01-0.09 Lab Interpretation (test code = 97185-6) [facility]normal [facility] [id number] 05:55:54* Test Item Value Reference Range Interpretation Comme nts CK (test code = 2935423689) 3682 U/L 33-194 H Lab Interpretation (test cod e = 01373-3) [facility]normal [facility] [id number] 05:55:54* Test Item Value Reference Range Interpretation Comme nts CK (test code = 2966968937) 3682 U/L 33-194 H Lab Interpretation (test cod e = 34626-8) Abnormal [facility] METABOLIC PANEL (NA, K, CL, CO2, GLUCOSE, BUN, CREATININE, CA)2021-05-24 05:02:27* Test Item Value Reference Range Interpretation Comme nts NA (test code = 3846116605) 137 mmol/L 135-145 K (test code = 2181861664) 3.6 mmol/L 3.5-5.0 CL (test code = 7672899429) 105 mmol/L 98-108 CO2 TOTAL (test code = 3435839137) 23 mmol/L 23-31 AGAP (test code = 7669094345) 2-16 BUN (test code = 6549542177) 26 mg/dL 7-23 H GLUCOSE (test code = 4005010706) 95 mg/dL 70-110 CREATININE (test code = 7519024429) 1.31 mg/dL 0.60-1.25 H CALCIUM (test code = 6946034773) 8.6 mg/dL 8.6-10.6 eGFR (test code = 3485444083) mL/min/1.73m2 KRYSTLE (test code = KRYSTLE) Association [...] imaging tests). Lab Interpretation (test code = 87604-9) Abnormal [facility] METABOLIC PANEL (NA, K, CL, CO2, GLUCOSE, BUN, CREATININE, CA)2021-05-24 05:02:27* Test Item Value Reference Range Interpretation Comme nts NA (test code = 0910345654) 137 mmol/L 135-145 K (test code = 6087671612) 3.6 mmol/L 3.5-5.0 CL (test code = 0895928438) 105 mmol/L 98-108 CO2 TOTAL (test code = 7691593534) 23 mmol/L 23-31 AGAP (test code = 7799048651) 2-16 BUN (test code = 8379744869) 26 mg/dL 7-23 H GLUCOSE (test code = 9217804845) 95 mg/dL 70-110 CREATININE (test code = 8362374290) 1.31 mg/dL 0.60-1.25 H CALCIUM (test code = 5964135164) 8.6 mg/dL 8.6-10.6 eGFR (test code = 6736334934) mL/min/1.73m2 KRYSTLE (test code = KRYSTLE) Association [...] imaging tests). Lab Interpretation (test code = 41673-1) Abnormal [facility] [id number] 02:56:10* Test Item Value Reference Range Interpretation Comments TROPONIN I (test code = 9632067474) 0.004 ng/mL See_Comment [Automated message] The system [...] of biotin. Lab Interpretation (test code = 60118-5) Normal [facility] [id number] 02:56:10* Test Item Value Reference Range Interpretation Comments TROPONIN I (test code = 0500933934) 0.004 ng/mL See_Comment [Automated message] The system [...] of biotin. Lab Interpretation (test code = 36065-0) Normal [facility] [id number] 02:41:54* Test Item Value Reference Range Interpretation Comme nts CK (test code = 2146235435) 4607 U/L 33-194 H Lab Interpretation (test cod e = 29220-6) Abnormal [facility] [id number] 02:41:54* Test Item Value Reference Range Interpretation Comme nts CK (test code = 0298529898) 4607 U/L 33-194 H Lab Interpretation (test cod e = 07180-5) [facility]normal [facility] [id number] 02:33:28* Test Item Value Reference Range Interpretation Comme nts NT-proBNP (test code = 5323657472) 14 pg/mL See_Comment [Automated message] The system which generated this result transmitted reference range: <=125. The reference range was not used to interpret this result as normal/abnormal. KRYSTLE (test code = KRYSTLE) Biotin has been reported to cause a negative bias, interpret results relative to patient's use of biotin. Lab Interpretation (test code = 40546-9) Normal [facility] [id number] 02:33:28* Test Item Value Reference Range Interpretation Comme nts NT-proBNP (test code = 5096084116) 14 pg/mL See_Comment [Automated message] The system which generated this result transmitted reference range: <=125. The reference range was not used to interpret this result as normal/abnormal. KRYSTLE (test code = KRYSTLE) Biotin has been reported to cause a negative bias, interpret results relative to patient's use of biotin. Lab Interpretation (test code = 22905-7) Normal [facility]21[facility] 02:29:35* Test Item Value Reference Range Interpretation Comme nts APPEARANCE (test code = 8253765581) Clear Clear COLOR (test code = 3556028870) Yellow Yellow PH (test code = 8137547367) 4.8-8.0 SP GRAVITY (test code = 4505640632) 1.003-1.030 GLU U QUAL (test code = 5770958343) Normal Normal BLOOD (test code = 2212418715) Negative Negative KETONES (test code = 1569878027) Negative Negative PROTEIN (test code = 2887-8) Negative Negative UROBILIN (test code = 2024083512) 2.0 mg/dL Normal A BILIRUBIN (test code = 5851661908) Negative Negative NITRITE (test code = 9226760502) Negative Negative LEUK MO (test code = 7708016537) Negative Negative RBC/HPF (test code = 6024370625) See_Comment [Automated Footbalistica ge] The system which generated this result transmitted reference range: 0 - 3 HPF. The reference range was not used to interpret this result as normal/abnormal. WBC/HPF (test code = 2678111727) See_Comment [Automated Footbalistica ge] The system which generated this result transmitted reference range: 0 - 5 HPF. The reference range was not used to interpret this result as normal/abnormal. BACTERIA (test code = 8403410040) Negative Negative MUCOUS (test code = 8294359481) Slight Negative LPF A SQ EPITH (test code = 9657172537) <1 HPF Lab Interpretation (test code = 15558-0) [facility]normal [facility]21[facility] 02:29:35* Test Item Value Reference Range Interpretation Comme nts APPEARANCE (test code = 4223547734) Clear Clear COLOR (test code = 4655564488) Yellow Yellow PH (test code = 1814714739) 4.8-8.0 SP GRAVITY (test code = 4938558786) 1.003-1.030 GLU U QUAL (test code = 1416562979) Normal Normal BLOOD (test code = 4845570028) Negative Negative KETONES (test code = 8970115457) Negative Negative PROTEIN (test code = 2887-8) Negative Negative UROBILIN (test code = 5932978573) 2.0 mg/dL Normal A BILIRUBIN (test code = 2969566102) Negative Negative NITRITE (test code = 0819252195) Negative Negative LEUK MO (test code = 3985488383) Negative Negative RBC/HPF (test code = 9605307701) See_Comment [Automated Footbalistica ge] The system which generated this result transmitted reference range: 0 - 3 HPF. The reference range was not used to interpret this result as normal/abnormal. WBC/HPF (test code = 0952132163) See_Comment [Automated Footbalistica ge] The system which generated this result transmitted reference range: 0 - 5 HPF. The reference range was not used to interpret this result as normal/abnormal. BACTERIA (test code = 7638461327) Negative Negative MUCOUS (test code = 8388172025) Slight Negative LPF A SQ EPITH (test code = 9820636482) <1 HPF Lab Interpretation (test code = 75568-4) Abnormal [facility]. METABOLIC PANEL (20554)2021-05-24 02:25:07* Test Item Value Reference Range Interpretation Comme nts NA (test code = 0223070020) 137 mmol/L 135-145 K (test code = 9083617041) 3.1 mmol/L 3.5-5.0 L CL (test code = 0602163562) 102 mmol/L 98-108 CO2 TOTAL (test code = 6365516306) 22 mmol/L 23-31 L AGAP (test code = 1017039312) 2-16 BUN (test code = 7048184869) 28 mg/dL 7-23 H GLUCOSE (test code = 6867622787) 132 mg/dL 70-110 H CREATININE (test code = 4389348177) 1.77 mg/dL 0.60-1.25 H TOTAL BILI (test code = 0098154125) 1.0 mg/dL 0.1-1.1 CALCIUM (test code = 5218666808) 9.4 mg/dL 8.6-10.6 T PROTEIN (test code = 9370832314) 9.4 g/dL 6.3-8.2 H ALBUMIN (test code = 3813456425) 5.0 g/dL 3.5-5.0 ALK PHOS (test code = 5417950698) 79 U/L 34-122 ALTv (test code = 1742-6) 112 U/L 5-50 H AST(SGOT) (test code = 0774942012) 152 U/L 13-40 H eGFR (test code = 4096167873) mL/min/1.73m2 KRYSTLE (test code = KRYSTLE) Association [...] imaging tests). Lab Interpretation (test code = 09671-6) Abnormal [facility]. METABOLIC PANEL (73418)2021-05-24 02:25:07* Test Item Value Reference Range Interpretation Comme nts NA (test code = 7137942735) 137 mmol/L 135-145 K (test code = 0366422205) 3.1 mmol/L 3.5-5.0 L CL (test code = 9112184432) 102 mmol/L 98-108 CO2 TOTAL (test code = 4312709704) 22 mmol/L 23-31 L AGAP (test code = 5906125008) 2-16 BUN (test code = 5820197458) 28 mg/dL 7-23 H GLUCOSE (test code = 3736864979) 132 mg/dL 70-110 H CREATININE (test code = 5663278140) 1.77 mg/dL 0.60-1.25 H TOTAL BILI (test code = 1904215675) 1.0 mg/dL 0.1-1.1 CALCIUM (test code = 1477116069) 9.4 mg/dL 8.6-10.6 T PROTEIN (test code = 8213730359) 9.4 g/dL 6.3-8.2 H ALBUMIN (test code = 1292653989) 5.0 g/dL 3.5-5.0 ALK PHOS (test code = 9562860024) 79 U/L 34-122 ALTv (test code = 1742-6) 112 U/L 5-50 H AST(SGOT) (test code = 9877479844) 152 U/L 13-40 H eGFR (test code = 6045322081) mL/min/1.73m2 KRYSTLE (test code = KRYSTLE) Association [...] imaging tests). Lab Interpretation (test code = 91005-5) Abnormal [facility] WITH [id number] 02:03:22* Test Item Value Reference Range Interpretation Comme nts WBC (test code = 6690-2) See_Comment [Automated [employer] The system which generated this result transmitted reference range: 4.20 - 10.70 10*3/?L. The reference range was not used to interpret this result as normal/abnormal. RBC (test code = 789-8) See_Comment [Automated Foot[employer]a [employer] The system which generated this result transmitted [...] g/dL 31.2-35.0 H RDW-SD (test code = 89418-7) 39.7 fL 38.5-51.6 RDW-CV (test code = 788-0) 12.7 % 12.1-15.4 PLT (test code = 777-3) See_Comment [Automated Footbalistica ge] The system which generated this result transmitted reference range: 150 - 328 10*3/?L. The reference range was not used to interpret this result as normal/abnormal. MPV (test code = 33604-7) 9.7 fL 9.8-13.0 L NRBC/100 WBC (test code = 6655308436) See_Comment [Automated [employer] [facility] ssage] The system which generated this result transmitted reference range: 0.0 - 10.0 /100 WBCs. The reference range was not used to interpret this result as normal/abnormal. NRBC x10^3 (test code = 7990709172) <0.01 See_Comment [Automated messa ge] The system which generated this result transmitted reference range: 10*3/?L. The reference range was not used to interpret this result as normal/abnormal. GRAN MAT (NEUT) % (test code = 770-8) 45.9 % IMM GRAN % (test code = 0774008794) 0.20 % LYMPH % (test code = 736-9) 41.7 % MONO % (test code = 5905-5) 11.6 % EOS % (test code = 713-8) 0.3 % BASO % (test code = 706-2) 0.3 % GRAN MAT x10^3(ANC) (test code = 9370088315) 3.95 10*3/uL 1.99-6.95 IMM GRAN x10^3 (test code = 1606683852) <0.03 0.00-0.06 LYMPH x10^3 (test code = 731-0) 3.60 10*3/uL 1.09-3.23 H MONO x10^3 (test code = 742-7) 1.00 10*3/uL 0.36-1.02 EOS x10^3 (test code = 711-2) 0.03 10*3/uL 0.06-0.53 L BASO x10^3 (test code = 704-7) 0.03 10*3/uL 0.01-0.09 Lab Interpretation (test code = 08861-9) Abnormal [facility] WITH [id number] 02:03:22* Test Item Value Reference Range Interpretation [...] g/dL 31.2-35.0 H RDW-SD (test code = 40275-6) 39.7 fL 38.5-51.6 RDW-CV (test code = 788-0) 12.7 % 12.1-15.4 PLT (test code = 777-3) See_Comment [Automated Footbalistica ge] The system which generated this result transmitted reference range: 150 - 328 10*3/?L. The reference range was not used to interpret this result as normal/abnormal. MPV (test code = 17035-7) 9.7 fL 9.8-13.0 L NRBC/100 WBC (test code = 0871759167) See_Comment [Automated [facility] ssage] The system which generated this result transmitted reference range: 0.0 - 10.0 /100 WBCs. The reference range was not used to interpret this result as normal/abnormal. NRBC x10^3 (test code = 5231704620) <0.01 See_Comment [Automated Footbalistica ge] The system which generated this result transmitted reference range: 10*3/?L. The reference range was not used to interpret this result as normal/abnormal. GRAN MAT (NEUT) % (test code = 770-8) 45.9 % IMM GRAN % (test code = 7974341955) 0.20 % LYMPH % (test code = 736-9) 41.7 % MONO % (test code = 5905-5) 11.6 % EOS % (test code = 713-8) 0.3 % BASO % (test code = 706-2) 0.3 % GRAN MAT x10^3(ANC) (test code = 5406009463) 3.95 10*3/uL 1.99-6.95 IMM GRAN x10^3 (test code = 0787518741) <0.03 0.00-0.06 LYMPH x10^3 (test code = 731-0) 3.60 10*3/uL 1.09-3.23 H MONO x10^3 (test code = 742-7) 1.00 10*3/uL 0.36-1.02 EOS x10^3 (test code = 711-2) 0.03 10*3/uL 0.06-0.53 L BASO x10^3 (test code = 704-7) 0.03 10*3/uL 0.01-0.09 Lab Interpretation (test code = 72328-6) Abnormal [facility]-19 (ID NOW RAPID TESTING)2021-05-02 00:31:00* Test Item Value Reference Range Interpretation Comme nts SARS-CoV-2 Rapid ID NOW (test code = 92813-4) Not Detected Not Detected KRYSTLE (test code = KRYSTLE) ID NOW COVID-19 As say is an isothermal nucleic acid amplification test intended for the qualitative detection of nucleic acid from SARS-CoV-2 viral RNA in nasopharyngeal ([employer] OR [employer]) specimens. It is used under Emergency Use [...] clinically indicated. Lab Interpretation (test code = 48592-6) Normal [facility] STREP SCREEN FOR GROUP [id number] 00:25:45* Test Item Value Reference Range Interpretation Comme nts Streptococcus pyogenes (grou p A) antigen (test code = 84653-6) Negative Negative Lab Interpretation (test cod e = 85287-2) Normal [facility]-19 (ID NOW RAPID TESTING)2021-04-02 01:41:42* Test Item Value Reference Range Interpretation Comme nts SARS-CoV-2 Rapid ID NOW (test code = 78968-9) Not Detected Not Detected KRYSTLE (test code = KRYSTLE) ID NOW COVID-19 As say is an isothermal nucleic acid amplification test intended for the qualitative detection of nucleic acid from SARS-CoV-2 viral RNA in nasopharyngeal ([employer]) specimens. It is used under Emergency Use [...] clinically indicated. Lab Interpretation (test code = 04324-2) Normal [facility]ID STREP SCREEN FOR GROUP L1456-23-16 01:39:31* Test Item Value Reference Range Interpretation Comme nts Streptococcus pyogenes (grou p A) antigen (test code = 74033-9) Negative Negative Lab Interpretation (test cod e = 51706-3) Normal [facility]XR WRIST 3+ VW NRHE1251-96-83 02:41:03 Impression: No acute osseous abnormality. AFC: [id number] 460End of Report Exam: XR WRIST 3+ [...] soft tissue edema.IMPRESSIONImpression: No acute osseous abnormality.AFC: [id number] 460End of Report UnSouth [facility] HospitalUrinalysis2021-07-05 01:32:01* Test Item Value Reference Range Interpretation Comme nts APPEARANCE (test code = 9361342770) Clear Clear COLOR (test code = 1972066322) Yellow Yellow PH (test code = 6520199593) 4.8-8.0 SP GRAVITY (test code = 6118441800) 1.003-1.030 GLU U QUAL (test code = 2911236559) Normal Normal BLOOD (test code = 9508624450) Negative Negative KETONES (test code = 0598879758) Negative Negative PROTEIN (test code = 2887-8) Negative Negative UROBILIN (test code = 8726513723) 2.0 mg/dL Normal A BILIRUBIN (test code = 2436282254) Negative Negative NITRITE (test code = 5035683114) Negative Negative LEUK MO (test code = 9892774222) Negative Negative RBC/HPF (test code = 4071821452) See_Comment [Automated [employer]] The system which generated this result transmitted reference range: 0 - 3 HPF. The reference range was not used to interpret this result as normal/abnormal. WBC/HPF (test code = 8035071187) See_Comment [Automated [employer]] The system which generated this result transmitted reference range: 0 - 5 HPF. The reference range was not used to interpret this result as normal/abnormal. BACTERIA (test code = 3320846277) Few Negative A MUCOUS (test code = 1092539199) Slight Negative LPF A SQ EPITH (test code = 5768139679) <1 HPF Lab Interpretation (test code = 14921-2) Abnormal [facility] CHEST 1 MW9336-04-57 04:09:05Impression: Mild thickening of the sol of the central airways, possibly reflectinginfectious or inflammatory bronchitis. RL: 460 AFC: 24618 Ordering physician: DARNELL HSU Indication: Cough and [...] airways, possibly reflectinginfectious or inflammatory bronchitis.RL: 460AFC: 34678Qfmzonsriwdyfi signed byMarisol Manzo MD, PhD at 11/14/2020 10:[address] [facility] HospitalCOMPREHENSIVE METABOLIC HFXCM6865-11-08 00:00:00* Test Item Value Reference Range Interpretation Comme nts GLUCOSE (test code = 2217) 101 MG/DL BUN (test code = 2208) 11 MG/DL CREATININE (test code = 2214) 0.88 MG/DL eGFR AMER. (test cod e = 95357) 118 ML/MIN/1.73 eGFR NON- AMER. (test code = 97117) 102 ML/MIN/1.73 CALC BUN/CREAT (test code = [...] code = 2219) 88 U/L COMPREHENSIVE METABOLIC KFSRE4656-79-58 00:00:00* Test Item Value Reference Range Interpretation Comme nts GLUCOSE (test code = 2217) 101 MG/DL BUN (test code = 2208) 11 MG/DL CREATININE (test code = 2214) 0.88 MG/DL eGFR AMER. (test cod e = 80998) 118 ML/MIN/1.73 eGFR NON- AMER. (test code = 92147) 102 ML/MIN/1.73 CALC BUN/CREAT (test code = [...] (test code = 2219) 88 U/L N-TERMINAL CQL-KHK4088-08-17 15:43:00* Test Item Value Reference Range Interpretation Comme nts NT-proBNP (test code = 7773893888) <11 See_Comment [Automated message] The system which generated this result transmitted reference range: <=125 pg/mL. The reference range was not used to interpret this result as normal/abnormal. KRYSTLE (test code = KRYSTLE) Biotin has been reported to cause a negative bias, interpret results relative to patient's use of biotin. Lab Interpretation (test code = 56065-8) Normal [facility] WITH LMHR2091-70-66 15:27:00* Test Item Value Reference Range Interpretation [...] g/dL 31.2-35 H RDW-SD (test code = 12528-3) 37.3 fL 38.5-51.6 L RDW-CV (test code = 788-0) 11.9 % 12.1-15.4 L PLT (test code = 777-3) See_Comment [Automated Footbalistica ge] The system which generated this result transmitted reference range: 150 - 328 10*3/?L. The reference range was not used to interpret this result as normal/abnormal. MPV (test code = 96132-3) 9.7 fL 9.8-13 L NRBC/100 WBC (test code = 1625638024) See_Comment [Automated [employer] ssage] The system which generated this result transmitted reference range: 0.0 - 10.0 /100 WBCs. The reference range was not used to interpret this result as normal/abnormal. NRBC x10^3 (test code = 1720913677) <0.01 See_Comment [Automated Footbalistica ge] The system which generated this result transmitted reference range: 10*3/?L. The reference range was not used to interpret this result as normal/abnormal. GRAN MAT (NEUT) % (test code = 770-8) 29.2 % IMM GRAN % (test code = 9456508995) 0.20 % LYMPH % (test code = 736-9) 59.0 % MONO % (test code = 5905-5) 10.1 % EOS % (test code = 713-8) 1.1 % BASO % (test code = 706-2) 0.4 % GRAN MAT x10^3(ANC) (test code = 7196743835) 1.57 10*3/uL 1.99-6.95 L IMM GRAN x10^3 (test code = 2734173370) <0.03 0-0.06 LYMPH x10^3 (test code = 731-0) 3.17 10*3/uL 1.09-3.23 MONO x10^3 (test code = 742-7) 0.54 10*3/uL 0.36-1.02 EOS x10^3 (test code = 711-2) 0.06 10*3/uL 0.06-0.53 BASO x10^3 (test code = 704-7) <0.03 0.01-0.09 Lab Interpretation (test code = 36245-1) Abnormal [facility] 1 TH1174-17-89 15:13:32No acute cardiopulmonary process. Preliminary Report Dictated by Resident: Efraín Alcaraz MD., have reviewed this study and agree withthe above report.PROCEDURE: XR CHEST1 VW CLINICAL INDICATION: dizzy TECHNIQUE: Frontal chest radiograph was obtained. COMPARISON: NoneFINDINGS: The lungs are clear. No pleural effusion [...] reviewed this study and agree withthe above report.[facility] HospitalTROPONIN Y2239-92-39 14:59:00* Test Item Value Reference Range Interpretation Comme nts TROPONIN I (test code = 7501537317) <0.012 See_Comment [Automated message] The system which [...] biotin. ? Lab Interpretation (test code = 54899-5) [facility] (36975)2020-09-30 14:59:00* Test Item Value Reference Range Interpretation Comme nts NA (test code = 8845607082) 139 mmol/L 135-145 K (test code = 5787071502) 3.8 mmol/L 3.5-5 CL (test code = 9112933274) 103 mmol/L 98-108 CO2 TOTAL (test code = 6226143640) 26 mmol/L 23-31 AGAP (test code = 4971493852) 2-16 BUN (test code = 2300515977) 11 mg/dL 7-23 GLUCOSE (test code = 6860642831) 163 mg/dL 70-110 H CREATININE (test code = 6816605534) 0.85 mg/dL 0.6-1.25 TOTAL BILI (test code = 3035238692) 0.6 mg/dL 0.1-1.1 CALCIUM (test code = 8289760892) 9.0 mg/dL 8.6-10.6 T PROTEIN (test code = 3937648513) 8.0 g/dL 6.3-8.2 ALBUMIN (test code = 5283356397) 4.4 g/dL 3.5-5 ALK PHOS (test code = 0765578705) 75 U/L 34-122 ALTv (test code = 1742-6) 61 U/L 5-50 H AST(SGOT) (test code = 3515008375) 54 U/L 13-40 H eGFR Calculation (Non-) (test code = 0303106269) mL/min/1.73m2 eGFR Calculation () (test code = 9933553047) mL/min/1.73m2 KRYSTLE (test code = KRYSTLE) Association [...] imaging tests). Lab Interpretation (test code = 33305-1) Abnormal [facility] HospitalLIPASE, BGHEF9389-50-01 14:59:00* Test Item Value Reference Range Interpretation Comme nts LIPASE (test code = 8909765428) 116 U/L 0-220 Lab Interpretation (test cod e = 93449-8) Normal [facility] HospitalTroponin Q2860-85-23 04:30:00* Test Item Value Reference Range Interpretation Comme nts TROPONIN I (test code = 1745509822) <0.012 See_Comment [Automated message] The system which [...] biotin. ? Lab Interpretation (test code = 65632-4) Normal [facility] HospitalComplete Metabolic Lsdqr7919-38-41 03:24:00* Test Item Value Reference Range Interpretation Comme nts NA (test code = 6105128976) 137 mmol/L 135-145 K (test code = 9817868915) 4.7 mmol/L 3.5-5 CL (test code = 0959797310) 101 mmol/L 98-108 CO2 TOTAL (test code = 3435797705) 27 mmol/L 23-31 AGAP (test code = 5094491035) 2-16 BUN (test code = 5419127036) 16 mg/dL 7-23 GLUCOSE (test code = 4739533358) 226 mg/dL 70-110 H CREATININE (test code = 4979250205) 1.13 mg/dL 0.6-1.25 TOTAL BILI (test code = 6787774361) 0.7 mg/dL 0.1-1.1 CALCIUM (test code = 4972462367) 9.3 mg/dL 8.6-10.6 T PROTEIN (test code = 9867493403) 7.8 g/dL 6.3-8.2 ALBUMIN (test code = 4264637819) 3.9 g/dL 3.5-5 ALK PHOS (test code = 7629740868) 79 U/L 34-122 ALTv (test code = 1742-6) 62 U/L 5-50 H AST(SGOT) (test code = 8733572961) 49 U/L 13-40 H eGFR Calculation (Non-) (test code = 2525056950) mL/min/1.73m2 eGFR Calculation () (test code = 5665034778) mL/min/1.73m2 KRYSTLE (test code = KRYSTLE) Association [...] imaging tests). Lab Interpretation (test code = 01228-8) Abnormal [facility] HospitalLipase, Qahhs2044-06-66 03:23:00* Test Item Value Reference Range Interpretation Comme nts LIPASE (test code = 3983603634) 317 U/L 0-220 H Lab Interpretation (test cod e = 63744-5) Abnormal [facility] HospitalCBC with Peycoeataazf5378-13-94 03:21:00* Test Item Value Reference Range Interpretation Comme nts WBC (test code = 6690-2) See_Comment [Automated Footbalistica [employer])] The system which generated this result transmitted reference range: 4.20 - 10.70 10*3/?L. The reference range was not used to interpret this result as normal/abnormal. RBC (test code = 789-8) See_Comment [Automated Foot[employer]a [employer] The system which generated this result transmitted [...] g/dL 31.2-35 H RDW-SD (test code = 88500-6) 37.9 fL 38.5-51.6 L RDW-CV (test code = 788-0) 12.4 % 12.1-15.4 PLT (test code = 777-3) See_Comment [Automated [employer]a [employer] The system which generated this result transmitted reference range: 150 - 328 10*3/?L. The reference range was not used to interpret this result as normal/abnormal. MPV (test code = 66019-6) 9.7 fL 9.8-13 L NRBC/100 WBC (test code = 7749272535) See_Comment [Automated me ssage] The system which generated this result transmitted reference range: 0.0 - 10.0 /100 WBCs. The reference range was not used to interpret this result as normal/abnormal. NRBC x10^3 (test code = 1099274317) <0.01 See_Comment [Automated messa ge] The system which generated this result transmitted reference range: 10*3/?L. The reference range was not used to interpret this result as normal/abnormal. GRAN MAT (NEUT) % (test code = 770-8) 36.7 % IMM GRAN % (test code = 5304084080) 0.10 % LYMPH % (test code = 736-9) 50.9 % MONO % (test code = 5905-5) 11.1 % EOS % (test code = 713-8) 0.8 % BASO % (test code = 706-2) 0.4 % GRAN MAT x10^3(ANC) (test code = 1817518365) 2.59 10*3/uL 1.99-6.95 IMM GRAN x10^3 (test code = 3558773679) <0.03 0-0.06 LYMPH x10^3 (test code = 731-0) 3.61 10*3/uL 1.09-3.23 H MONO x10^3 (test code = 742-7) 0.79 10*3/uL 0.36-1.02 EOS x10^3 (test code = 711-2) 0.06 10*3/uL 0.06-0.53 BASO x10^3 (test code = 704-7) 0.03 10*3/uL 0.01-0.09 Lab Interpretation (test code = 92195-7) Abnormal [facility] Notes Date/Time Note Provider Source 2024-02-20 23:53:18 4720-76-49T38:53:18 Pt given printed and verbal discharge instructions regarding abd pain, & constipation, encouraged hydration.Prescriptions provided.Pt verbalized understanding of instructions, pt awake alert oriented, resp reg unlabored, skin w/d, color appropriate for race, moves all ext well,pt encouraged to follow up with pcp and GI.Advised to seek medical attention for new/prolonged/worsening of symptoms.No adverse reaction to meds given in ER noted upon discharge.PIV d'cd, dressing to site, catheter in tact.Awake, alert oriented, resp reg unlabored, skin w/d, pt leaving amb with steady gait, in no apparent distress. 28673-1Kgkerhjsj department VugcZY5665-56-89L14:54:00[facility] department NoteTXT1.2.840.818049.1.13.104.2.7.2.72 7879|[id number] for patient kuhp86068-1PjnzBSQDYLOGBSLUhmrruedw C-CDA narrative xnfr342578784Krsfip L Williams RN[address] MhbeCagvtujbzPbrgmnforIJDP1277281368WPX FTDTAJMTAPACUYYEWRS9930-23-61O50:54:001 .2.840.043014.1.72.3.15|1.2.840.225043. 1.13.104.2.7.2.727879_[id number] Carol Siddiqui RN [facility] 2024-02-20 21:42:07 1767-49-20O91:42:07 Pt arrived ambulatory with complaints of abdominal pain and constipation x4 days. Pt reports hx of pancreatitis but has been out of Creon prescription for a while. 20422-7Zthjqjenf department Triage vzqkYO2374-52-33D20:45:15[facility] department Triage noteTXT1.2.840.893125.1.13.104.2.7.2.72 7879|[id number] for patient folm17008-0Ruhmqrrcw department NoteLNNARRATIVEFormatted C-CDA narrative mctt782849297Opyzto D Roman RN[address] [id number] PQLTEIFCBEAGEOYMIWK3434-30-68A08:45:151 .2.840.970297.1.72.3.15|1.2.840.704176. 1.13.104.2.7.2.727879_[id number] Debora Bhatti RN [facility] 2023-12-09 23:47:26 8021-72-62E30:47:26 Pt discharged with diagnosis of lumbar radiculopathy. Printed and verbal instructions reviewed with and given to pt. Prescriptions given x 2. Pt verbalized understanding of teaching, medication, and recommended follow-up. Denies questions or concerns at this time. Pt ambulatory at discharge. Appears in no apparent distress. No ataxia noted. Accompanied by family. 77057-1Treugslir department EraoNY2369-51-88H74:47:42[facility] department NoteTXT1.2.840.401552.1.13.104.2.7.2.72 7879|[id number] for patient bwzj56072-5BvosZIGZIDMVACCQamnegspi C-CDA narrative vzqi613259109HuivfpShira Brumfield RN[id number] OCCROEOZBJHWAZWWHOS2966-32-41N04:47:421 .2.840.671930.1.72.3.15|1.2.840.794374. 1.13.104.2.7.2.727879_[id number] Shira Brumfield RN [facility] 2023-12-09 20:10:35 2406-19-21M01:10:35 CC: Pt reports left sided low back pain going down left leg since Thursday. Today he felt the urge to void but could not, then had 2 episodes of voiding blood.PMHx: chronic pancreatitis, hep C (resolved), sciaticaAwake, alert, oriented, resp reg unlabored, skin warm, color appropriate for race, moves all ext without difficulty, amb with steady gait 48283-4Nlxvnkzzf department Triage juxwRH4852-05-76H99:11:54[facility] Triage noteTXT1.2.840.514295.1.13.104.2.7.2.72 7879|[id number] for patient cgjx12608-7Hjkriedlp department NoteLNNARRATIVEFormatted C-CDA narrative edin066434233Wyqplv R Shehadeh RN[address] PdrkKcbymytljSlkardhfmTAWY7326163836XEJ IMXVJZOUPNTBQHNNOMZ0362-86-57P28:11:541 .2.840.662984.1.72.3.15|1.2.840.998331. 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 As a result of said fall, pt developed chronic recurrent low back pain. No fever or chills. No cauda equina symptomsHistory provided by: Patient and medical recordsLanguage interpreter for the deaf used: NoDifficulty UrinatingPresenting symptoms: no dysuria, no [...] 0.03 0.01 - 0.09 10*3/uLCOMP. METABOLIC PANEL (97475) - AbnormalNA 141 135 - 145 mmol/LK [...] 52 (*) 13 - 40 U/LeGFR 96.9 mL/min/1.82q9AIIHULPDAW - AbnormalAPPEARANCE Clear ClearCOLOR Yellow YellowPH 5.0 [...] PELVIS W CONTRASTCbc with DiffComp. Metabolic Panel (10042)UrinalysisOrders Placed This EncounterMedicationsketorolac (TORADOL) injection 30 mgiopamidol (ISOVUE 370-500 mL) injection 100 mLHYDROcodone-acetaminophen (NORCO) 10-325 mg tablet 1 tabletketorolac 10 mg tabletmethocarbamoL 750 mg tabletFirst Provider Eval:ED EventsDate/Time Event User Yvtvpujp97/27/242019 Medical Screening Begins ABRAHAM ORANTES MD --12/09/232019 First Provider Evaluation ABRAHAM ORANTES MD --ED COURSEDiagnosis/Impression as of 12/09/23 2306Hematuria of unknown causeLumbar radiculopathyProcedures:ProceduresMDM:M edical Decision MakingNoah Putnam is a 53 year old male [...] (six) hours as needed (Abdominal pain or cramping).GIHZBL-WWUGZGWE-MPZPWKA (CREON) 3,000-9,500- 15,000 UNIT CAPSULE Take 1 [...] these medicationsNo medications on fileFollow-up:Contact information for follow-upBeJimmy farooq MDRelationship: PCP - Brandon[address] [place] [phone]: [phone], Craig L, MDSpecialty: ORT-ORTHOPAEDIC QWVIDSW[address] [facility] [address]Kslmy: [phone] signed by:Abraham Orantes MD12/09/23 8632 27627-8Ftnurieup Emergency department CzvjLM7477-19-38F95:07:32Physician Emergency department NoteTXT1.2.840.155402.1.13.104.2.7.2.72 7879|[id number] for patient dxfm92053-5Kxbgwduen department NoteLNNARRATIVEFormatted C-CDA narrative textUTMBUT - [address] MptkItbtjgncgCxgglyysdNZKH1898125412XSH QWQMRDINXPXDUBLITZB6175-66-81I99:07:321 .2.840.626091.1.72.3.15|1.2.840.834386. 1.13.104.2.7.2.727879_[id number] [facility] 2023-10-06 14:20:14 9059-46-34I33:20:14 Chief ComplaintPatient presents withNew PatientBlood Pressurethe patientStates he [place] [address]-1Csutl FvmsZN6913-22-93R88:20:47Nurse NoteTXT1.2.840.330925.1.13.131.2.7.2.72 7879|[id number] for patient ghxv29669-4Laokg NoteLNNARRATIVEFormatted C-CDA narrative [facility] [facility] HospitalZZJDCSNMHJXUSSCWQZ5137737083FOYI91 07-10-22T14:20:471.2.840.763646.1.72.3. 15|1.2.840.290849.1.13.131.2.7.2.901197 _[id number] [facility] 2023-07-23 07:15:00 [id number]s9lQf2 793oR2uJkZi/GxejgqcEmueBjEfhZhJVWg+4a20 06-08-09T07:15:00 [facility] ([facility])EMERGENCY PROVIDER REPORTREPORT#:[id number] REPORT STATUS: SignedDATE:07/23/23 TIME: 714 PATIENT: NOAH PUTNAM UNIT #: [id number]#: [id number] ROOM/BED:AGE: 52 SEX: M PCP PHYS: DOES_NOT KNOWSERVICE AUTHOR: Tracy Hall MD R1 LOCATION: [facility] * ALL edits or amendments must [...] showed that the patient was seen in [place] ED on 07/[address] AP was negative for gallbladder, biliary, pancreatic and GI disease. Patient sees a GI doctor at [facility] and is in the process of getting [...] # (Auto) (1.0 - 3.8 K/mm3) 2.61 Denali # (Auto) (0.1 - 0.8 K/mm3) 0.68 Eos # (Auto) (0.0 - 0.2 K/mm3) 0.04 Baso # (Auto) (0.0 - 0.2 K/mm3) 0.02 Nucleated RBCs # (Man) (0.0 - 0.1 K/mm3) 0.00 Urines Urine Color (YELLOW) YELLOW Urine Appearance (CLEAR) CLEAR Urine pH (5.0 - 9.0) 6.0 Ur Specific Upson (1.003 - 1.030) 1.025 Urine Protein (NEGATIVE [...] 0750 Report Impression - Status: SIGNED Entered: 07/23/2023830 IMPRESSION: 1. No acute abnormality. Impression By: [...] in the ED, and will go see [facility] in [place] after discharge. We will send Norflex, Bentyl, [...] Instructions Abdominal PainDeparture FormsWORK/SCHOOL EXCUSE VARIABLEWORK/SCHOOL EXCUSE-CAREGIVER HumbertoJessie A 07/23/2317:Patient Discharge Departure Discharge/Care PlanReferralsProvider Referral: Karina Nascimento MD Address: [address] [place] [address] Provider Referral: Peter Pérez MD Address: [address] [place] [address] Provider Referral: Adebayo Bagley NP Address: [address] [place] [address] Provider Referral: Carola Brooks [employer] Address: [address] [id number] Provider Referral: Mary Ibarra MD Address: [address] [phone] Provider Referral: Woody Roman [employer] [facility] [address] [address] Supervising Physician Note Resident Saw PtThis patient [...] for patient's abdominal pain. Patient called his estate agent for which she is going to another hospital but the GI works at to be admitted for further care and evaluation. Discussed no indication for admission at this facility which patient understands and agrees with plan. Patient is discharged home with analgesia antiemetics at 1039 at 1048RPT #:[id number] OF REPORTEDEmergency department nxqsgv3612-85-30P39:15:00Z.BFGF41234930 -0166AVAvailable for patient kijxGRFPFTGAAPSKMD8397-12-76W82:39:44 [facility] 2023-07-23 05:32:00 [id number]/WhGQK7EbySB9whC3uM2M2MLFAG cam8TkLS2ygU0TaGJ3P2DNEOmRRJZfLHMJeMA42 06-08-09T05:32:00 [facility] ([facility])EMERGENCY PROVIDER REPORTREPORT#:[id number] REPORT STATUS: SignedDATE:07/23/23 TIME: 0532 PATIENT: NOAH PUTNAM UNIT #: [id number]#: [id number] ROOM/BED:AGE: 52 SEX: M PCP PHYS:SERVICE DT: AUTHOR: Rita Ashford LOCATION: [facility] * ALL edits or amendments must be made on the electronic/computer document * Provider in Triage - Adult Provider in TriageInitial Greet Date/Time 07/23/23 05 Greet NoteI have greeted and performed a focused rapid [...] organs. Free Text PIT NotesFree Text PIT Cqryy18-isil-lhz male with a past medical history of [...] diseaseAdditional Surgical HistoryLeft wrist surgery at 0533RPT #:[id number] OF REPORTEDEmersouth [facility] department fvjaun2284-33-56O06:32:00Z.FGYX02912480 -0063AVAvailable for patient awgwRIEHRIIFXVNSMU4870-06-16S40:33:39 [facility] 2023-07-01 23:26:00 EW6094504212UBT3CQNCxYT5YgXYWydtEZ5MHRE pD4bbo+rVdbre30+HJ4qdGZUugMOsBP9gLi3h91 06-07-18T23:26:476792-0876 [place], [place] PATIENT NAME: NOAH PUTNAM ADMIT DATE: 07/01/23ACCOUNT NO: [id number] ROOM NO: AGE: 52 REPORT TYPE: ELECTROCARDIOGRAM SEX: M : 74ADMITTING PHYSICIAN: ATTENDING PHYSICIAN:Jessie Gleason DO Order:[id number] Reason : abdominal pain Test Date/Time Stamp:ThuJul [...] ECGs availableConfirmed by JESSIE GLEASON DO ([id number]), online content editor MARCIA GALVEZ (78) on07/20/2023 3:03:25 PM Referred By: Self Referred Confirmed by:JESSIE GLEASON DO at 1503 PATIENT NAME: NOAH PUTNAM .[id number] for patient btuhKMRVKKXPOEYYJR6011-33-95T56:04:05 [facility] 2023-07-01 23:22:00 [id number]+G3+et2o+6 3AlZVhAXStS72kiML2sEh/ANfDI6UO57gxf5T63 06-07-18T23:22:00 [facility] ([facility])OR [facility] PROVIDER REPORTREPORT#:[id number] REPORT STATUS: SignedDATE:07/01/23 TIME: 2321 PATIENT: NOAH PUTNAM UNIT #: [id number]#: [id number] ROOM/BED:AGE: 52 SEX: M PCP PHYS: Undefined ProviderSERVICE AUTHOR: Jessie Gleason DO * ALL edits or amendments must be made on the electronic/computer document * HPI-Abd Pain M 40 and Over GeneralConfirmed Patient YesPatient Type New patientInitial Greet Date/Time 07/01/232301 PresentationChief Complaint Abdominal painSudden in Onset? No Free Text HPI NotesFree Text HPI [id number] male presents with complaint of abdominal pain. [...] [facility] and was discharged with tramadol after [...] % (Auto) (24 - 44 %) 41.1 [place] % (Auto) (0.0 - 4.0 %) 7.4 [...] base. Correlation with PSA is recommended.Impression By: [email or web address] - Jennifer Bass MD ECG #1 InterpretationText/Dict NoteSinus rhythm with frequent PVCsNonspecific T wave abnormalityDate 07/01/23Time 2330Interpreted by ED physicianNL ECG Interpretation Normal rate, Normal sinus rhythm, No acute ischemic changes, No STEMI, Normal QRS, Normal ST waves, Normal axis, Normal intervalsRate 88 Re-Evaluation MDM )( Re-Evaluation/Progress #1Text/Dict NotePatient is reporting improvement [...] STA 07/01 2322 DC 07/01 IV 07/01 Diagnostic Agents Sig/Shirin Start time Last Medication Dose Route Stop Time Status Admin Iopamidol 0 .STK-MED ONE 07/01 2330 DC 07/01 IV 2342 Iopamidol 0 .STK-MED ONE 07/01 2330 DCr 07/01 IV 234 Iopamidol 0 .STK-MED ONE 07/01 2330 DCr 07/01 IV 2344 Electrolytic, Caloric, And Daryn Sig/Shirin Start time Last Medication Dose Route Stop Time Status Admin Potassium Chloride 40 MEQ X1ED STA 07/028 DC 07/02 PO 07/02 19 0032 Gastrointestinal Drugs Sig/Shirin Start time Last Medication Dose Route Stop Time Status Admin Ondansetron HCl 4 MG ONCE PRN 07/01 2325 DC 07/01 IV 2327 Differential Diagnosis)( Differential Diagnosis Appendicitis, Constipation, GERD, [...] 2256 Pulse 89 07/01 2256 Resp 07/01 All vital signs available at the time [...] docTobacco Screening/Cessation Denies tobacco use at 0109RPT #:[id number] OF REPORTSt[facility] iliqfj5539-48-71I20:22:00D.RIRH23076717 -0941AVAvailable for patient nfepPEKWKGEDASUALR3074-69-30D22:09:42 [facility] 2023-05-20 15:08:22 3936-94-21Y44:08:22 Chief Complaint Patient presents with Consultation [place] [address]-8Apqjx MewtOV9659-96-35Z92:10:32Nurse NoteTXT1.2.840.818849.1.13.131.2.7.2.72 7879|[id number] for patient whxe59390-5Rvlfb NoteLNKELTr[facility] [facility].SNHNQHFDQIXQMGDDBI8262092930HEPM14 06-06-065:10:321.2.840.690703.1.72.3. 15|1.2.840.475636.1.13.131.2.7.2.996112 _[id number] Luz Maria-Alden [facility] 2023-05-07 23:22:46 5192-13-74Z14:22:46 Discharge instructions reviewed with patient. Follow up care discussed. All questions answered by RN. [facility] Patient in possession of all belongings. RR even and unlabored, VSS, NAD noted. [address]30-9Tiqtllmft[address] VnddHR8930-22-79I97:23:02[facility] NoteTXT1.2.840.158026.1.13.104.2.7.2.72 7879|[id number] for patient furn09732-8QoaoMZ403175665Ylgmgh Gay [id number] YATUUWGTGDUHZRKKCNY1729-09-03Y54:23:021 .2.840.082801.1.72.3.15|1.2.840.513341. 1.13.104.2.7.2.727879_[id number] Steffanie Easley RN [facility] 2023-05-07 23:01:52 6689-02-55X49:01:52 DC hold for fluid admin. 36390-0Egwrmfhlv[address] PcdoHI3508-67-95Z21:02:00[facility] NoteTXT1.2.840.601639.1.13.104.2.7.2.72 7879|[id number] for patient jiqc11009-9HldwJDPDDVZEBF28 [id number] FEKVNXLQJLCAPILLVET8549-46-70C44:02:001 .2.840.162601.1.72.3.15|1.2.840.233341. 1.13.104.2.7.2.727879_[id number] [facility] 2023-05-07 22:51:08 0084-34-50P82:51:08 This RN chaperoned DO for rectal exam. 93270-7Bvcxcddcf department EalhEW5540-00-57K02:51:22[facility] NoteTXT1.2.840.256890.1.13.104.2.7.2.72 7879|[id number] for patient yugs72887-4HgdhTELPDAAFTR[address] KxydUtayronjoClxntqpqxCMYX2192679904EOX FBZXLKWTYBDUKNRNTDQ2792-77-06D06:51:221 .2.840.864967.1.72.3.15|1.2.840.971246. 1.13.104.2.7.2.727879_[id number] [facility] 2023-05-07 20:30:00 5932-05-36O33:30:00 Noah Putnam is a 52 year old [...] Patient reports he was seen at the [facility] a few days ago and treated [...] RR even and unlabored. VSS. NAD noted. 33014-6Hrxdctngc department QfqxSP4676-45-51C90:50:18[facility] NoteTXT1.2.840.489092.1.13.104.2.7.2.72 7879|[id number] for patient tjzn40155-9JkduPGFRFNCWMU28 [id number] EZOXSYRIRQDKZKUGTZS0728-23-38A96:50:181 .2.840.451007.1.72.3.15|1.2.840.614739. 1.13.104.2.7.2.727879_[id number] [facility] 2023-05-07 17:35:38 5135-21-93M59:35:38 Noah Putnam is a 52 year old male presenting to ED with c/o abd pain. Patient reports hx of pancreatitis. Patient reports began having blood in stool today. Patient to green chairs due to ED saturation 93796-7Tfoxmwrfi department Triage cmytIH3843-45-49B51:36:16[facility] department Triage noteTXT1.2.840.812236.1.13.104.2.7.2.72 7879|[id number] for patient wbud26764-5Rabdzgeca department CtfzHE682259329Tyawisjh L Holmes RN[id number] LQFLDPWXOCDHSONCQMX3919-25-41T54:36:161 .2.840.573390.1.72.3.15|1.2.840.973103. 1.13.104.2.7.2.727879_[id number] Helene Newell RN [facility] 2023-05-02 00:32:03 0523-20-90D80:32:03 DC instructions and prescriptions for protonix and reglan reviewed with patient. He will fill prescriptions and take them as directed. He will follow up with his PCP as directed. He will increase his oral intake of fluids to maintain hydration. He will return to the ED if his symptoms persist or worsen. He was Dc'd ambulatory-alert and in no distress. 07661-8Vbhylfnuw department RzgnRM3830-55-70D87:34:46Emergency department NoteTXT1.2.840.140442.1.13.104.2.7.2.72 7879|[id number] for patient sdlv66144-1HfmdAW280890802Gafhzhs M Owens RN[address] TdadVgvifedeyVsomqzcbpNJJN3611215347TOJ AIGPAFQRFXDVVBMMUKV6800-16-03K08:34:461 .2.840.023321.1.72.3.15|1.2.840.021566. 1.13.104.2.7.2.727879_[id number] Marcelo Tsai RN [facility] 2023-05-01 21:28:00 1809-94-96G65:28:00 Patient states: "I came here last week for dehydration and I think it's the same thing now. I'm drinking fluids and keeping myself hydrated but since 3 days I feel weak, sweating more, and my body is cramping. I also vomited 8x today. I worked all day out in the sun today." 35216-5Vzwchhzgl department Triage adxqJB7077-64-89I20:38:40[facility] department Triage noteTXT1.2.840.784558.1.13.104.2.7.2.72 7879|[id number] for patient ratn89158-4Mtmqsrmpb department [id number] C Heredia RN[address] RpinMmkcagusfKapubvewnBLRQ8891570305EEJ FKRLZKPDTMEHLFQWBKI9156-72-85V89:38:401 .2.840.380444.1.72.3.15|1.2.840.133728. 1.13.104.2.7.2.727879_[id number] Lelo Carbajal RN [facility] 2023-04-22 13:03:22 4385-57-87O14:03:22 Pt given printed and verbal discharge instructions [...] w/d, pt leaving in no apparent distress, 64037-7Tmbtrbmux department OfvdJX0908-20-22J81:04:12[facility] NoteTXT1.2.840.354726.1.13.104.2.7.2.72 7879|[id number] for patient jlqo06093-3YhqxOX869256714Otowd M Crawford RNUT[id number] LRGRSKDZHXWQNUOUPPA8365-25-42T04:04:121 .2.840.854824.1.72.3.15|1.2.840.844306. 1.13.104.2.7.2.727879_[id number] Jacki Kilpatrick Michael BARRIGA [facility] 2023-04-22 10:35:21 4158-11-75W96:35:21 Patient ate some potatoes from meal tray, states stomach began to cramp. Patient provided juice, states that his boss is going to being him some food that he will also try but states stomach is cramping. 82167-8Iwxtmizbk department EsnrCF6590-27-08N74:36:25[facility] department NoteTXT1.2.840.560409.1.13.104.2.7.2.72 7879|[id number] for patient dbeo15517-2CxdnTW336566303Yssurevr M Bird UT[id number] DUMCSKDIRFLDYWMQDGO4629-32-94A26:36:251 .2.840.702669.1.72.3.15|1.2.840.426490. 1.13.104.2.7.2.727879_[id number] Caty Pang RN [facility] 2023-04-22 10:28:09 9936-37-07R92:28:09 Patient provided meal tray. 06408-9Qbrkrhvfz department ZzjmKM5805-66-46V13:28:20Emergency department NoteTXT1.2.840.782497.1.13.104.2.7.2.72 7879|[id number] for patient iapc27376-4IhtoGJEHJLBHYB[id number] SHNVZCJCHLDSOMHYAAX8653-59-05Q11:28:201 .2.840.252857.1.72.3.15|1.2.840.902445. 1.13.104.2.7.2.727879_[id number] [facility] 2023-04-22 10:18:30 4533-20-35T90:18:30 Patient encouraged to eat, advised of plan of care. 22298-1Ibypcpeam department SoifKL6527-23-99B32:19:08[facility] NoteTXT1.2.840.073210.1.13.104.2.7.2.72 7879|[id number] for patient flsm85058-7IttrXRXOGLJNXU28 [id number] AUPSPVPGYYSTEKDEXZK5684-76-77A30:19:081 .2.840.515711.1.72.3.15|1.2.840.027180. 1.13.104.2.7.2.727879_[id number] [facility] 2023-04-22 06:30:24 4061-15-28I66:30:24 Second liter of fluids completed, pt states he is still unable to urinate, RN gave pt a urinal and encouraged pt to try, pt stated that he will but he does not feel like going yet. 66235-7Yvdmjjszj department ThenLY0209-59-79Z42:38:32[facility] department NoteTXT1.2.840.918224.1.13.104.2.7.2.72 7879|[id number] for patient dedl51595-6IoumVY327240796Goagra L Williams RNUT[address] [id number] BBUMDABYNZPHVXAPNWW6044-59-17Z88:38:321 .2.840.181981.1.72.3.15|1.2.840.682588. 1.13.104.2.7.2.727879_[id number] Carol Siddiqui RN [facility] 2023-04-22 05:20:00 1078-18-00M98:20:00 Pt walked to the bathroom, cannot void. Provider informed, orders received 71109-3Xbejpxudy department EjciLP8962-18-49E23:54:56[facility] NoteTXT1.2.840.980876.1.13.104.2.7.2.72 7879|[id number] for patient wfof97500-1EazlYMHVIHRFQO86 [id number] KBPKXITNTJEARIAEZSZ0834-59-62X08:54:561 .2.840.109454.1.72.3.15|1.2.840.705483. 1.13.104.2.7.2.727879_[id number] [facility] 2023-04-22 03:56:00 0271-00-20R91:56:00 CC: Pt states he was working in [...] ext without difficulty, amb with steady gait 10043-4Yronplwiz department Triage zwziVT2724-35-92Y16:58:39[facility] department Triage noteTXT1.2.840.592529.1.13.104.2.7.2.72 7879|[id number] for patient thdu59720-1Htrizpmyj department GpnnWV574687362Fkzfhp R Shehadeh RNUT[address] LmajPugjefbylLqhdpivypABRV0197183819JZE MDOJFHZXIDMZWFXQHGT9060-49-52T84:58:391 .2.840.423285.1.72.3.15|1.2.840.274836. 1.13.104.2.7.2.727879_[id number] Carol Wu RN [facility] 2023-04-22 03:50:00 8754-97-24Y02:50:00 Patient Care assumed at shift change. Off-going Physician: YohanarmGeetaime of Transfer of Care: 7:46 AMSummary: Noah [...] mL (0 mL IV Infusion Stopped 04/22/23 2728) metoclopramide HCl (REGLAN) injection 10 mg (10 [...] components within normal limits COMP. METABOLIC PANEL (76085) - Abnormal; Notable for the following components: [...] unspecified pancreatitis type Natali Alexander DO04/22/23 1238 08028-1Yufmdbwoe Emergency department QrfsJE1772-82-61V80:38:07[facility] NoteTXT1.2.840.482516.1.13.104.2.7.2.72 7879|[id number] for patient uvhy42875-5Lrpmearhs department [address] KnaeD[id number] ZWZYQHDSBVTHFSPZDSC2787-26-28M60:38:071 .2.840.835334.1.72.3.15|1.2.840.066410. 1.13.104.2.7.2.727879_[id number] [facility] 2023-04-16 08:49:36 7946-37-07F19:49:36 Pt requesting more medication, provider informed. Attempted [...] not discharge papers complaining about the service. 61496-6Knimggmke department KgvxZA2166-10-20O28:54:17[facility] NoteTXT1.2.840.620682.1.13.104.2.7.2.72 7879|[id number] for patient fnyi29679-6CmyvIP756211730Mpkw H Wark RNUT[address] StreetTXTX7755577555USU LAEFTOTESJWUQVZUFUX7244-73-10B96:54:171 .2.840.465722.1.72.3.15|1.2.840.961685. 1.13.104.2.7.2.727879_[id number] Rachana Pratt RN [facility] 2023-04-16 08:17:00 4221-81-79O35:17:00 This RN and Provider at bedside. Provider explaining to pt that some of his pain could be due to being constipated, images showed pt is constipated. 18565-8Jaaemkkba department BjztVK2914-61-95B46:57:40[facility] NoteTXT1.2.840.307175.1.13.104.2.7.2.72 7879|[id number] for patient djuh65311-5ZavoYGGPZETULK[address]TXTX7755577555USU WJXGQESSFQCUXNUXDUW8443-97-53A23:57:401 .2.840.613091.1.72.3.15|1.2.840.584942. 1.13.104.2.7.2.727879_[id number] [facility] 2023-04-16 07:56:11 3383-90-27D45:56:11 Pt returns from X-ray, NAD noted, family remains at bedside. 93294-6Htllsfijr department VlhvBI1180-34-13T25:56:33[facility] NoteTXT1.2.840.763891.1.13.104.2.7.2.72 7879|[id number] for patient cxix54793-2YyuwOVCFHGZHKD28 [id number] LHROJKMWDIEAQFLXEOI1963-15-37Q10:56:331 .2.840.364099.1.72.3.15|1.2.840.672123. 1.13.104.2.7.2.727879_[id number] [facility] 2023-04-16 07:41:37 7107-04-85Q90:41:37 Pt transported to X-ray via [facility] transport. 29399-3Niorizcst department AxwjHJ6697-54-85O75:42:02[facility] NoteTXT1.2.840.204357.1.13.104.2.7.2.72 7879|[id number] for patient ccou42360-8EhgiDGUGHTUVFN28 [id number] FQXZLXZFJCPIMQKOYMD1248-57-09F57:42:021 .2.840.487420.1.72.3.15|1.2.840.152555. 1.13.104.2.7.2.727879_[id number] [facility] 2023-04-16 07:20:37 3040-42-98N98:20:37 Noah Putnam is a 52 year old [...] bedside. Provider and this RN at bedside. 38186-4Dyhkopqyt department FclyVP1635-49-51E99:44:34[facility] department NoteTXT1.2.840.239043.1.13.104.2.7.2.72 7879|[id number] for patient wsha49280-6KgmeRNQGQMVBKB[address] SuodJsganfsecTpjpqsuxlPPVA7344595507MEC RXIVJWJVAXPTEYLUMPT6548-01-30V83:44:341 .2.840.963365.1.72.3.15|1.2.840.882316. 1.13.104.2.7.2.727879_[id number] [facility] 2023-04-16 07:08:22 2352-01-11F19:08:22 Noah Putnam is a 52 year old male presenting to ED with c/o abd pain. Patient reports pain for a few weeks. Patient reports was recently seen and diagnosed with pancreatitis. Patient endorses pain to abd and radiates to back. Patient to room for further eval 78906-9Iqhrpxvyu department Triage byzdNL0984-81-99F68:09:02[facility] department Triage noteTXT1.2.840.816266.1.13.104.2.7.2.72 7879|[id number] for patient pmlx03494-4Pntpxrduh department IslpIY290178121Kajssywf L Holmes RN[address] JdzcAxypbxrdeNmfynqqxmACDH9974213205JNF MCABIWYLULPIJHSLCUM7850-16-63Y46:09:021 .2.840.773677.1.72.3.15|1.2.840.844765. 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 METABOLIC PANEL (34259) - Abnormal NA 142 135 - 145 [...] VW CBC WITH DIFF COMP. METABOLIC PANEL (68732) LIPASE TROPONIN I Orders Placed This Encounter Medications NaCl 0.9% (NS) bolus infusion 1,000 mL ketorolac (TORADOL) injection 30 mg dicyclomine (BENTYL) injection 20 mg famotidine (PEPCID (PF)) injection 20 mg lactulose (CEPHULAC) solution 45 mL padfft-bjozpeom-kfwxghz (CREON) 12,000-38,000 -60,000 unit capsule 2 capsule enalaprilat (VASOTEC I.V.) injection 1.25 mg hfenpe-fitpqgei-uzodlex (CREON) 3,000-9,500- 15,000 unit capsule hyoscyamine sulfate (LEVSIN/SL) 0.125 mg sublingual tablet famotidine (PEPCID) 20 mg tablet bisacodyL 5 mg EC tablet First Provider Eval:ED Events Date/Time Event User Comments 04/16/23703 Medical Screening Begins DAISY CANALESIAN -- 04/16/23703 First Provider Evaluation BLOSSOM CANALES [...] hours as needed (Abdominal pain or cramping). UFUGWO-RFVRFZNW-BXVIQCU (CREON) 3,000-9,500- 15,000 UNIT CAPSULE Take 1 [...] Follow-up:Electronically signed by: Adelaide Goodwin MD04/16/23 0850 92351-4Sfzggqmbn Emergency department HosmSU4401-80-96Z88:50:55Physician Emergency department NoteTXT1.2.840.548870.1.13.104.2.7.2.72 7879|[id number] for patient rijc70372-2Uatkbbwhr department Note[address] FjryX[id number] ERBXCVUAFSZBNSPELHW8451-64-32L97:50:551 .2.840.229198.1.72.3.15|1.2.840.018010. 1.13.104.2.7.2.727879_[id number] [facility] 2023-04-01 03:22:04 8222-06-07E47:22:04 Pt given printed and verbal discharge instructions [...] with steady gait, in no apparent distress. 50579-3Uoqkoayol department KprcEP6436-44-20D39:24:21[facility] department NoteTXT1.2.840.940077.1.13.104.2.7.2.72 7879|[id number] for patient basa588705752Mbpuyibf C Heredia RN[id number] HSKAQKHRSIAAILBVGBO4900-75-90D04:24:211 .2.840.311405.1.72.3.15|1.2.840.965725. 1.13.104.2.7.2.727879_[id number] Lelo Carbajal RN [facility] 2023-04-01 00:02:06 1224-09-33B43:02:06 History of chronic pancreatitis. Mid upper abdominal pain for 4 days. Complaining of oily stool. Vomited x2. 39213-3Gvkyzdsty department Triage msrnQD4207-10-32Z67:02:52[facility] department Triage noteTXT1.2.840.342092.1.13.104.2.7.2.72 7879|[id number] for patient dubm959635438DcjcbAnuradha Nolen RN[id number] XGESZSGMJTNNYUMMQEW6948-85-67S11:02:521 .2.840.734190.1.72.3.15|1.2.840.133972. 1.13.104.2.7.2.727879_[id number] Anuradha Nolen RN [facility]
[2024-03-08] MEDS ORDERED: NA CHLORIDE 0.9% 1,000 ML ONE (13:05)
[2024-03-08 13:32] LABS: Absolute Eosinophils 0.1 K/uL (0-0.5); Absolute Lymphocytes (CBC) 2.6 K/uL (0.7-4.9); Absolute Monocytes 0.5 K/uL (0.1-1.3); Absolute Neutrophil 2.3 K/uL (1.8-8.0); Basophils % 0.5 % (0-1.3); Eosinophils % 1.2 % (0-4.4); Hematocrit 43.6 % (39.6-49.0); Lymphocytes % 47.8 % (15.3-44.8); MCH 29.9 pg (27.0-35.0); MCHC 34.5 g/dL (32.0-36.0); MCV 86.6 fL (80-100); MPV 7.9 fL (7.6-11.3); Monocytes % 8.4 % (3.3-12.3); Neutrophils % 42.1 % (41.7-73.7); Platelets 214 thou/uL (152-406); RBC Red Blood Cell Count 5.03 M/uL (4.33-5.43); Red Cell Distribution Width 13.3 % (12.1-15.2)
[2024-03-08 13:36] LABS: PT Prothrombin Time 12.4 SECONDS (9.4-12.5); Protime INR 1.13
[2024-03-08 13:55] LABS: ALT/SGPT 36 U/L (16-61); AST/SGOT 21 U/L (15-37); Albumin 3.9 g/dL (3.4-5.0); Alkaline Phosphatase 60 U/L (45-117); Anion Gap 6.7 mEq/L (5.0-15.0); BUN Blood Urea Nitrogen 17 mg/dL (7-18); Bicarbonate 29 mEq/L (21-32); Bilirubin Total 0.5 mg/dL (0.2-1.0); Glomerular Filtration Rate 74 ml/min (=/>90); Glucose Level 99 mg/dL (74-106); Lipase 28 U/L (13-75); Magnesium 1.9 mg/dL (1.6-2.4); NT PRO-BNP 27 pg/mL (<125); Potassium 3.7 mEq/L (3.5-5.1); Protein, Total 7.9 g/dL (6.4-8.2); Sodium Level 140 mEq/L (136-145); Troponin High Sensitivity 3.2 pg/mL (<58.9)
[2024-03-08 13:56] LABS: Bilirubin Direct < 0.2 mg/dL (0-0.2); Bilirubin Indirect, Calculated 0.3 mg/dL (0.2-0.8)
--- NOTE | 2024-03-08 14:08 | RAD REPORT ---
EXAM DESCRIPTION: Tana Single View03/08/2024 1:36 pm CLINICAL HISTORY: Chest pain COMPARISON: 2022 FINDINGS: The lungs appear clear of acute infiltrate. The heart is normal size IMPRESSION: No acute abnormalities displayed
[2024-03-08 15:20] LABS: Specific Gravity > 1.030 (1.005-1.030); Sqamous Epithelial None Seen /HPF (None Seen); Urine Bacteria None Seen /HPF (<20); Urine Bilirubin NEGATIVE (Negative); Urine Blood Negative (Negative); Urine Clarity Clear (Clear); Urine Color Light-Yellow (Yellow); Urine Culture Reflex Order NOT NEEDED; Urine Glucose NEGATIVE (Negative); Urine Ketones NEGATIVE (Negative); Urine Microscopic Reflex YN ORDER UMIC; Urine Mucus Slight /HPF (None Seen); Urine Nitrite NEGATIVE (Negative); Urine Protein TRACE (Negative); Urine RBC <5 /HPF (None Seen); Urine Urobilinogen Normal (Normal); Urine WBC <5 /HPF (<5); Urine pH 5.5 (5.0-7.0)
[2024-03-08] MEDS ORDERED: ASPIRIN 81 MG CHEWABLE TABLET ONE (15:42)
--- NOTE | 2024-03-08 16:20 | EDPHYS ---
Physician Documentation [facility] Name: Noah Putnam Age: 53 yrs Sex: Male : 1970 Arrival Date: 03/08/2024 Time: 12:35 Bed 16 Private MD: ED Physician Jimbo Rivera HPI: 03/08 15:35 This 53 yrs old Black Male presents to ER via Ambulatory with complaints of Chest Pain, abe Shortness Of Breath. 15:35 The patient or guardian reports chest pain that is located primarily in the anterior abe chest wall. Historical: - Allergies: 12:46 Bee Venom; mb9 - Home Meds: 12:46 amlodipine 10 mg tab 1 tab once daily [Active]; lisinopril 10 mg Oral tab 1 tab once mb9 daily [Active]; - PMHx: 12:46 chronic kidney disease; Chronic Pancreatitis; Herniated disc; Hypertension; mb9 - PSHx: 12:46 left arm surgery; mb9 - Immunization history:: Adult Immunizations up to date. - Infectious Disease History:: Denies. - Social history:: Smoking status: Patient denies any tobacco usage or history of. ROS: 15:36 Constitutional: Negative for fever, chills, and weight loss, Eyes: Negative for injury, abe pain, redness, and discharge, ENT: Negative for injury, pain, and discharge, Neck: Negative for injury, pain, and swelling, Abdomen/GI: Negative for abdominal pain, nausea, vomiting, diarrhea, and constipation, Back: Negative for injury and pain, : Negative for injury, bleeding, discharge, and swelling, MS/Extremity: Negative for injury and deformity, Skin: Negative for injury, rash, and discoloration, Neuro: Negative for headache, weakness, numbness, tingling, and seizure, Psych: Negative for depression, anxiety, suicide ideation, homicidal ideation, and hallucinations, Allergy/Immunology: Negative for hives, rash, and allergies, Endocrine: Negative for neck swelling, polydipsia, polyuria, polyphagia, and marked weight changes, Hematologic/Lymphatic: Negative for swollen nodes, abnormal bleeding, and unusual bruising, 15:36 Cardiovascular: Positive for chest pain, of the chest, 15:36 Respiratory: Positive for cough, shortness of breath, Exam: 15:36 Constitutional: This is a well developed, well nourished patient who is awake, alert, abe and in no acute distress. Head/Face: Normocephalic, atraumatic. Eyes: Pupils equal round and reactive to light, extra-ocular motions intact. Lids and lashes normal. Conjunctiva and sclera are non-icteric and not injected. Cornea within normal limits. Periorbital areas with no swelling, redness, or edema. ENT: Nares patent. No nasal discharge, no septal abnormalities noted. Tympanic membranes are normal and external auditory canals are clear. Oropharynx with no redness, swelling, or masses, exudates, or evidence of obstruction, uvula midline. Mucous membranes moist. Neck: Trachea midline, no thyromegaly or masses palpated, and no cervical lymphadenopathy. Supple, full range of motion without nuchal rigidity, or vertebral point tenderness. No Meningismus. Chest/axilla: Normal chest wall appearance and motion. Nontender with no deformity. No lesions are appreciated. Cardiovascular: Regular rate and rhythm with a normal S1 and S2. No gallops, murmurs, or rubs. Normal PMI, no JVD. No pulse deficits. Respiratory: Lungs have equal breath sounds bilaterally, clear to auscultation and percussion. No rales, rhonchi or wheezes noted. No increased work of breathing, no retractions or nasal flaring. Abdomen/GI: Soft, non-tender, with normal bowel sounds. No distension or tympany. No guarding or rebound. No evidence of tenderness throughout. Back: No spinal tenderness. No costovertebral tenderness. Full range of motion. Male : Normal genitalia with no discharge or lesions. Skin: Warm, dry with normal turgor. Normal color with no rashes, no lesions, and no evidence of cellulitis. MS/ Extremity: Pulses equal, no cyanosis. Neurovascular intact. Full, normal range of motion. Neuro: Awake and alert, GCS 15, oriented to person, place, time, and situation. Cranial nerves II-XII grossly intact. Motor strength 5/5 in all extremities. Sensory grossly intact. Cerebellar exam normal. Normal gait. Psych: Awake, alert, with orientation to person, place and time. Behavior, mood, and affect are within normal limits. 15:36 ECG was reviewed by the Attending Physician. 15:42 Musculoskeletal/extremity: ROM: no acute changes, Circulation is intact in all abe extremities. Sensation intact. Compartment Syndrome exam of affected extremity: is normal. Joints: All joints appear normal with full range of motion. Weight bearing: able to fully bear weight, DVT Exam: No signs of deep vein thrombosis. no pain, no swelling, no tenderness, negative Homans' sign noted on exam, no appreciated bluish discoloration, no erythema, no increased warmth, 16:18 ECG was reviewed by the Attending Physician. [facility] Vital Signs: 12:45 BP 154 / 87; Pulse 89; Resp 18; Temp 98; Pulse Ox 100% ; Weight 112.04 kg; Height 6 ft. mb9 5 in. ; Pain 7/10; 14:37 BP 142 / 95; Pulse 70; Resp 17; Pulse Ox 98% on R/A; Pain 6/10; nj1 15:20 BP 142 / 98; Pulse 64; Resp 18; Pulse Ox 98% on R/A; kj2 16:07 BP 139 / 97; Resp 18; Pulse Ox 99% on R/A; kj2 12:45 Body Mass Index 29.29 (112.04 kg, 195.58 cm) mb9 12:45 Pain Scale: Adult mb9 14:37 Pain Scale: Adult nj1 MDM: 12:41 Patient medically screened. [facility] 15:37 Differential diagnosis: abnormal EKG, acute myocardial infarction, acute pericarditis, abe anxiety, chest wall pain, costochondritis, esophagitis, gastroesophageal reflux disease (GERD), hiatal hernia, pancreatitis, pleurisy, pneumonia, pneumothorax, pulmonary embolus, stable angina, thoracic aortic disection, unstable angina. HEART Score: History: Slightly Suspicious (0), ECG: Non specific repolarization disturbance / LBTB / PM (1), Age: > 45 and < 65 years (1), Risk Factors: > or = 3 Risk factors for atherosclerotic disease (2), [Hypertension] [+ Family HX] [Obesity] Troponin: < or = 1 x Normal Limit (0). The patient was given aspirin in the Emergency Department. MICHELLE Risk Score: 1 - Three or more CAD risk factors, TOTAL SCORE = 1. Data reviewed: vital signs, nurses notes, EMS record, lab test result(s), EKG, radiologic studies, plain films. Consideration of Admission/Observation Escalation of care including admission/observation considered. I considered the following discharge prescriptions or medication management in the emergency department Medications were administered in the Emergency Department. See MAR. Independent interpretation of the following test(s) in the Emergency Department EKG: See my EKG interpretation above. Test considered but Not performed: Ultrasound 2 DECHO. Historians other than the Patient: EMS: EMS AND PT WELL INFORMED. Care significantly affected by the following chronic conditions: Hypertension, Chronic Kidney Disease. 03/08 12:43 Order name: Basic Metabolic Panel; Complete Time: 15:27 [facility] 03/08 12:43 Order name: CBC with Diff; Complete Time: 15:27 [facility] 03/08 12:43 Order name: LFT's; Complete Time: 15:27 [facility] 03/08 12:43 Order name: Magnesium; Complete Time: 15:27 [facility] 03/08 12:43 Order name: NT PRO-BNP; Complete Time: 15:27 [facility] 03/08 12:43 Order name: PT-INR; Complete Time: 15:27 [facility] 03/08 12:43 Order name: Troponin HS; Complete Time: 15:27 [facility] 03/08 12:43 Order name: Blood Culture Adult (2) [facility] 03/08 12:43 Order name: Lipase; Complete Time: 15:27 [facility] 03/08 12:43 Order name: Urinalysis w/ reflexes; Complete Time: 15:27 [facility] 03/08 15:35 Order name: Troponin High Sensitivity: 400 PM; Complete Time: 16:18 [facility] 03/08 12:43 Order name: XRAY Chest (1 view); Complete Time: 15:27 [facility] 03/08 15:35 Order name: EKG; Complete Time: 15:35 [facility] 03/08 12:43 Order name: Cardiac monitoring; Complete Time: 13:16 [facility] 03/08 12:43 Order name: EKG - Nurse/Tech; Complete Time: 12:47 [facility] 03/08 12:43 Order name: IV Saline Lock; Complete Time: 13:18 [facility] 03/08 12:43 Order name: Labs collected and sent; Complete Time: 13:18 [facility] 03/08 12:43 Order name: O2 Per Protocol; Complete Time: 13:16 [facility] 03/08 12:43 Order name: O2 Sat Monitoring; Complete Time: 13:16 [facility] 03/08 15:35 Order name: EKG - Nurse/Tech; Complete Time: 15:57 [facility] EC:36 Rate is 86 beats/min. Rhythm is regular. QRS [place] is Normal. CT interval is normal. QRS abe interval is normal. QT interval is normal. No Q waves. T waves are Normal. No ST changes noted. Clinical impression: Normal ECG and No evidence of ischemia. Interpreted by me. Reviewed by me. 16:18 Rate is 61 beats/min. Rhythm is regular. QRS [place] is Normal. CT interval is normal. QRS abe interval is normal. QT interval is normal. No Q waves. T waves are Normal. No ST changes noted. Clinical impression: Normal ECG and No evidence of ischemia. Interpreted by me. Reviewed by me. Administered Medications: 13:15 Drug: NS 0.9% IV 1000 ml IV at 125 ml/hr continuous Route: IV; Rate: 125 ml/hr; [facility]; 17:00 Follow up: Response: No adverse reaction; IV Status: Order to discontinue infusion; IV as6 Intake: 300ml 15:38 Drug: NS 0.9% IV 1000 ml IV at 1 bolus Per protocol; 1000 mL bolus Route: IV; Rate: 1 nj1 bolus; Site: right antecubital; 17:00 Follow up: Response: No adverse reaction; IV Status: Completed infusion; IV Intake: as6 1000ml 15:45 Drug: Aspirin PO Chewable Tablet 162 mg PO once Route: PO; nj1 17:00 Follow up: Response: No adverse reaction as6 Disposition Summary: 03/08/24 16:19 Discharge Ordered Notes: Location: Home abe Problem: new abe Symptoms: have improved abe Condition: Stable abe Diagnosis - Chest pain, unspecified abe - Heat exhaustion, unspecified abe - Dyspnea abe Followup: abe - With: Private Physician - When: 2 - 3 days - Reason: Recheck today's complaints, Continuance of care, Re-evaluation by your physician Followup: abe - With: Nitish Diego MD - When: 2 - 3 days - Reason: Recheck today's complaints, Re-evaluation by your physician Discharge Instructions: - Discharge Summary Sheet abe - Nonspecific Chest Pain, Adult abe - Nonspecific Chest Pain, Adult, [id number]-Hpia abe - Hypertension, Adult, [id number] abe - Heat Exhaustion abe - Aspirin and Your Heart abe - Preventing Heat Exhaustion, Adult abe Forms: - Medication Reconciliation Form abe - Antibiotic Education abe - Prescription Opioid Use abe - Patient Portal Instructions abe - Leadership Thank You Letter abe Signatures: Dispatcher [employer] EDMS Jimbo Rivera MD MD cha Breneman, Lona Akbar, RN RN mb9 Reena Armijo RN RN nj1 Reza Muir RN as6 Corrections: (The following items were deleted from the chart) 12:44 12:43 BASIC METABOLIC PANEL+C.LAB.BRZ ordered. EDMS EDMS 12:44 12:43 CBC+H.LAB.BRZ ordered. EDMS EDMS 12:44 12:43 HEPATIC FUNCTION+C.LAB.BRZ ordered. EDMS EDMS 12:44 12:43 MAGNESIUM+C.LAB.BRZ ordered. EDMS EDMS 12:44 12:43 PROBNP+C.LAB.BRZ ordered. EDMS EDMS 12:44 12:43 PROTIME (+INR)+COAG.LAB.BRZ ordered. EDMS EDMS 12:44 12:43 Troponin High Sensitivity+C.LAB.BRZ ordered. EDMS EDMS 12:44 12:43 BLOOD CULTURE*+BA.LAB.BRZ ordered. EDMS EDMS 12:44 12:43 LIPASE+C.LAB.BRZ ordered. EDMS EDMS 12:44 12:43 Urinalysis+U.LAB.BRZ ordered. EDMS EDMS 12:44 12:43 SARS-COV-2 Antigen Rapid+I.LAB.BRZ ordered. EDMS EDMS 12:44 12:43 Influenza Screen (A \T\ B)+BA.LAB.BRZ ordered. EDMS EDMS
--- NOTE | 2024-03-08 16:20 | ER ---
Nurse's Notes [facility] Name: Noah Putnam Age: 53 yrs Sex: Male : 1970 Arrival Date: 03/08/2024 Time: 12:35 Bed 16 Private MD: Diagnosis: Chest pain, unspecified;Heat exhaustion, unspecified;Dyspnea Presentation: 03/08 12:45 Chief complaint: Patient states: "I was at work and started having left sided chest mb9 pain and SOB. It feels like a sharp and throbbing pain that isn't going away.". Coronavirus screen: At this time, the client does not indicate any symptoms associated with coronavirus-19. Ebola Screen: No symptoms or risks identified at this time. Initial Sepsis Screen: Does the patient meet any 2 criteria? No. Patient's initial sepsis screen is negative. Does the patient have a suspected source of infection? No. Patient's initial sepsis screen is negative. Risk Assessment: Do you want to hurt yourself or someone else? Patient reports no desire to harm self or others. Onset of symptoms was March 08, 2024. 12:45 Method Of Arrival: Ambulatory mb9 12:45 Acuity: BREEZY 2 mb9 Triage Assessment: 12:46 General: Appears uncomfortable, Behavior is cooperative. Pain: Complains of pain in mb9 chest Pain does not radiate. Pain currently is 7 out of 10 on a pain scale. Quality of pain is described as heavy, pressure, Pain began suddenly, Is continuous. EENT: No signs and/or symptoms were reported regarding the EENT system. Neuro: Maier Agitation-Sedation Scale (RASS): 0 - Alert and Calm Level of Consciousness is awake, alert, obeys commands, Oriented to person, place, time, situation, Appropriate for age. Cardiovascular: Reports chest pain, Patient's skin is warm and dry. Respiratory: Reports shortness of breath Airway is patent Respiratory effort is even, unlabored, Respiratory pattern is regular, symmetrical. GI: Reports nausea. : No signs and/or symptoms were reported regarding the genitourinary system. Derm: Skin is intact, Skin is clammy, diaphoretic, Skin is normal, Skin temperature is warm. Musculoskeletal: Range of motion: intact in all extremities. Historical: - Allergies: 12:46 Bee Venom; mb9 - Home Meds: 12:46 amlodipine 10 mg tab 1 tab once daily [Active]; lisinopril 10 mg Oral tab 1 tab once mb9 daily [Active]; - PMHx: 12:46 chronic kidney disease; Chronic Pancreatitis; Herniated disc; Hypertension; mb9 - PSHx: 12:46 left arm surgery; mb9 - Immunization history:: Adult Immunizations up to date. - Infectious Disease History:: Denies. - Social history:: Smoking status: Patient denies any tobacco usage or history of. Screenin:22 [facility] ED Fall Risk Assessment (Adult) History of falling in the last 3 months, nj1 including since admission No falls in past 3 months (0 pts) Confusion or Disorientation No (0 pts) Intoxicated or Sedated No (0 pts) Impaired Gait No (0 pts) Mobility Assist Device Used No (0 pt) Altered Elimination No (0 pt) Score/Fall Risk Level 0 - 2 = Low Risk Oriented to surroundings, Maintained a safe environment, Hourly rounding (assess needs \\T\\ fall precautionary measures) done. Abuse screen: Denies threats or abuse. Denies injuries from another. Nutritional screening: No deficits noted. Tuberculosis screening: No symptoms or risk factors identified. Assessment: 13:10 General: Appears in no apparent distress. comfortable, Behavior is calm, cooperative, nj1 agitated. Pain: Complains of pain in chest Pain currently is 7 out of 10 on a pain scale. 13:10 Neuro: Level of Consciousness is awake, alert, obeys commands, Oriented to person, nj1 place, time, situation. Cardiovascular: Patient's skin is warm and dry. Respiratory: Airway is patent Respiratory effort is even, unlabored. 13:21 Reassessment: Refused nasal swabs. Education provided, pt still refuses. nj1 13:30 Reassessment: Patient appears in no apparent distress at this time. nj1 14:37 Reassessment: Patient appears in no apparent distress at this time. Patient and/or nj1 family updated on plan of care and expected duration. Pain level reassessed. Patient is alert, oriented x 3, equal unlabored respirations, skin warm/dry/pink. 15:19 Reassessment: Patient appears in no apparent distress at this time. Patient and/or kj2 family updated on plan of care and expected duration. Pain level reassessed. Patient is alert, oriented x 3, equal unlabored respirations, skin warm/dry/pink. 16:05 Reassessment: Patient appears in no apparent distress at this time. Patient and/or kj2 family updated on plan of care and expected duration. Pain level reassessed. Patient is alert, oriented x 3, equal unlabored respirations, skin warm/dry/pink. Patient states symptoms have improved. Vital Signs: 12:45 BP 154 / 87; Pulse 89; Resp 18; Temp 98; Pulse Ox 100% ; Weight 112.04 kg; Height 6 ft. mb9 5 in. ; Pain 7/10; 14:37 BP 142 / 95; Pulse 70; Resp 17; Pulse Ox 98% on R/A; Pain 6/10; nj1 15:20 BP 142 / 98; Pulse 64; Resp 18; Pulse Ox 98% on R/A; kj2 16:07 BP 139 / 97; Resp 18; Pulse Ox 99% on R/A; kj2 12:45 Body Mass Index 29.29 (112.04 kg, 195.58 cm) mb9 12:45 Pain Scale: Adult mb9 14:37 Pain Scale: Adult ct1 ED Course: 12:37 Patient arrived in ED. mr 12:40 EKG done, by ED staff, reviewed by Jimbo Rivera MD. mb9 12:41 Jimbo Rivera MD is Attending Physician. [facility] 12:46 Triage completed. mb9 12:46 Arm band placed on. mb9 13:00 Missed attempt(s): 20 gauge in right antecubital area. bc6 13:01 Reena Armijo, RN is Primary Nurse. nj1 13:10 Patient has correct armband on for positive identification. Bed in low position. Call nj1 light in reach. Side rails up X 1. Provided Education on: call light, fall precautions. 13:10 Client placed on continuous cardiac and pulse oximetry monitoring. NIBP monitoring nj1 applied. telemetry monitor on. 13:18 Lipase Sent. bc6 13:18 Blood Culture Adult (2) Sent. bc6 13:18 Basic Metabolic Panel Sent. bc6 13:18 CBC with Diff Sent. bc6 13:18 NT PRO-BNP Sent. bc6 13:18 LFT's Sent. bc6 13:18 Magnesium Sent. bc6 13:18 PT-INR Sent. bc6 13:19 Troponin HS Sent. bc6 13:19 Initial lab(s) drawn, by sc, sent to lab. Inserted saline lock: 20 gauge in right bc6 antecubital area, using aseptic technique. Blood collected. 13:38 XRAY Chest (1 view) In Process Unspecified. EDMO 16:10 EKG done, by ED staff. kj2 16:18 Nitish Diego MD is Referral Physician. [facility] 16:59 No provider procedures requiring assistance completed. IV discontinued, intact, as6 bleeding controlled, No redness/swelling at site. Pressure dressing applied. Administered Medications: 13:15 Drug: NS 0.9% IV 1000 ml IV at 125 ml/hr continuous Route: IV; Rate: 125 ml/hr; Site: nj1 right antecubital; 17:00 Follow up: Response: No adverse reaction; IV Status: Order to discontinue infusion; IV as6 Intake: 300ml 15:38 Drug: NS 0.9% IV 1000 ml IV at 1 bolus Per protocol; 1000 mL bolus Route: IV; Rate: 1 nj1 bolus; Site: right antecubital; 17:00 Follow up: Response: No adverse reaction; IV Status: Completed infusion; IV Intake: as6 1000ml 15:45 Drug: Aspirin PO Chewable Tablet 162 mg PO once Route: PO; nj1 17:00 Follow up: Response: No adverse reaction as6 Medication: 16:59 VIS not applicable for this client. as6 Intake: 17:00 IV: 300ml; Total: 300ml. as6 17:00 IV: 1000ml; Total: 1300ml. as6 Outcome: 16:19 Discharge ordered by . [facility] 16:59 Discharged to home ambulatory, with significant other, as6 16:59 Condition: stable 16:59 Discharge instructions given to patient, Instructed on discharge instructions, follow up and referral plans. Demonstrated understanding of instructions, follow-up care, 17:01 Patient left the ED. as6 Signatures: Dispatcher [employer] EDMS Jimbo Rivera MD MD cha Rivera, Mary, Reg Reg Reza Muir, RN RN as6 Lona Cedeño, RN RN mb9 Meera Douglas bc6 Reena Armijo RN RN nj1 Heather Parisi RN RN kj2
[2024-03-08 17:06] VITALS: TEMP 98
[2024-03-08 17:25] VITALS: BP 139/97; O2SAT 99
--- NOTE | 2024-03-09 13:50 | EKG ---
Test Date: 2024-03-08 Test Time: 15:51:08 Instructor Dramatic [employer]: KAROL MEASUREMENT RESULTS: Intervals: Rate: 61 GA: 178 QRSD: 88 QT: 396 QTc: 398 [place]: P: 52 GA: 178 QRS: 40 T: 15 INTERPRETIVE STATEMENTS: Normal sinus rhythm Normal ECG Compared to ECG 04/05/2023 11:37:51 No significant changes Electronically Signed On 03-09-24 13:48:10 CDT by Nitish Diego
--- NOTE | 2024-03-09 13:52 | EKG ---
Test Date: 2024-03-08 Test Time: 12:43:08 Smoking Pipe Coater: MB MEASUREMENT RESULTS: Intervals: Rate: 86 DC: 162 QRSD: 62 QT: 354 QTc: 423 [place]: P: 61 DC: 162 QRS: 36 T: 42 INTERPRETIVE STATEMENTS: Sinus rhythm with occasional premature ventricular complexes Otherwise normal ECG Compared to ECG 04/05/2023 11:37:51 Ventricular premature complex(es) now present Electronically Signed On 03-09-24 13:49:12 CDT by Nitish Diego
== END 2024-03-08 17:01 | disposition home or self-care (01) ==
LOC: ER 12:35
DX: T67.5XXA Heat exhaustion, unspecified, initial encounter (principal); R06.00 Dyspnea, unspecified; I10 Essential (primary) hypertension; Z91.030 Bee allergy status
CPT/HCPCS: 87040 ×2; 85025; 81001; 80048; 36415; 83735; 85610; 80076; 84484 ×2; 83690; 83880; 71045; J7030; 93005

== ENCOUNTER 2024-04-21 22:25 | Emergency (ER) | payer OTHER ==
--- OUTSIDE RECORDS SUMMARY | 2024-04-21 22:36 | XMS REPORT | Continuity of Care Document ---
Author Name Unknown Address [address] [facility] [address] [place] [address] [facility] thconnect Address [address] [facility] [address] [place] [address] Care Team Providers Care Transmitter Engineer In Charge Name Role Phone Emily Gaines Primary Care Physician Mayuri James Attending Clinician UnavailHAYDEN Park Attending Clinician Unavailable ADRI TAYLOR Attending Clinician Unavailable BROOK ALLEN Attending Clinician Unav ailable GIBRAN MCADAMS Attending Clinician Unavailable LEANDRO MANN Attending Clinician Unava ilable LAB90 Attending Clinician Unavailable Trevor TAYLOR Attending Clinician Unavailable Trevor TAYLOR Attending Clinician Unavailable GERALD VIDAL Attending Clinician Unavailable LAB47 Attending Clinician Unavailable Karl Ferguson MD Attending Clinician + [phone] OUTSIDE, REPORTED Attending Clinician UnavailElida Patrick MD Attending Clinician [phone] LETI RIVAS Attending Clinician Unavailable LETI RIVAS Attending Clinician Unavailable ABRAHAM ORANTES Attending Clinician Unavailable Abraham Orantes MD Attending Clinician + [phone] Chavez Turner DO Attending Clinician + [phone] CALLIE MUNOZ Attending Clinician Unavailable CALLIE MUNOZ Attending Clinician Unavailable MERLYN HIDALGO Attending Clinician Unavailable Doctor Unassigned, [place] Attending Clinician U navailable ADAN CHESTER Attending Clinician Unav ailable KIARA RICHARDSON Attending Clinician Unava ilable JOHNATHAN AVILA Attending Clinician Unavail able Johnathan Avila MD Attending Clinician [phone] Jessie Paul Attending Clinician Unavaila JIMMY Mayfield Attending Clinician Unavailabl STEPHIE Cortes Attending Clinician Unavailab MIRIAM Cervantes Attending Clinician Unavailable MIRIAM LUDWIG Attending Clinician Unavailable Haresh Santamaria MD Attending Clinician + Jsesie Gleason Attending Clinician Unavailab Dieudonne Winters Attending Clinician Unavailab le LAB56 Attending Clinician Unavailable MANFRED LANE Attending Clinician Unavaila AYDIN Miller Attending Clinician Unavailable Aydin Matos MD Attending Clinician +[phone] NATALI ALEXANDER Attending Clinician Unavailab Natali Glass DO Attending Clinician +[phone] ADELAIDE GOODWIN Attending Clinician Unavailable Adelaide Goodwin MD Attending Clinician HEMALATHA MORA Attending Clinician Unavailable Morgan CORNCOB PIPES ASSEMBLER, Hemalatha Attending Clinician +[phone] JESSICA GONZALES S Attending Clinician Unavailable Jessica Pradhan S Attending Clinician [phone] SOHAM CLARKE Attending Clinician Unavailluplilo Clarke MD, Soham Sethi Attending Clinician + [phone] Azam CORNCOB PIPES ASSEMBLER, Cynbrian Attending Clinician [phone] MARK HERNANDEZ Attending Clinician Unavailable Mark Hernandez MD Attending Clinician [phone] Carly RN, Ellen Kilpatrick Attending Clinician +[phone] EMELIA GALLEGO Attending Clinician Unavailable Coco FRENCHP, Madison Tripathi Attending Clinician [phone] Emelia Gallego DO Attending Clinician [phone] Dyana WALDROP, Felipe Street Attending Clinician + [phone] FELIPE ORTEGA Attending Clinician Unavailable Elliot HICKS, Gabriella Richard Attending Clinician [phone] Nurse, Adc Pob Immunization Attending Clinician Unavailable David Clarke DO Attending Clinician [phone] Nikhil Trevizo Attending Clinician [phone] NIKHIL BLANTON Attending Clinician Unavailable Isabela BARRIGA, Mirna Topete Attending Clinician Unavailab le Pcp, Patient Does Not Have A Attending Clinician Darnell Bustillo Attending Clinician + [phone] Jessy Siddiqui DO Attending Clinician [phone] Trevor TAYLOR Admitting Clinician Unavailable ABRAHAM ORANTES Admitting Clinician Unavailable JOHNATHAN AVILA Admitting Clinician Unavail able UNDEFINED Admitting Clinician Unavailable STEPHIE HEWITT Admitting Clinician Unavailab HARESH Sharma Admitting Clinician Unav ailDieudonne Trinidad Admitting Clinician Unavailab le MANFRDE LANE Admitting Clinician Unavaila NATALI Roe Admitting Clinician Unavailab le ADELAIDE GOODWIN Admitting Clinician Unavailable HEMALATHA MORA Admitting Clinician Unavailable SOHAM CLARKE Admitting Clinician UnavailLION Minaya Admitting Clinician Unavailable MARK HERNANDEZ Admitting Clinician Unavailable Mark Hernandez MD Admitting Clinician [phone] Trevor TAYLOR Admitting Clinician Unavailable EMELIA GALLEGO Admitting Clinician Unavailable Emelia Gallego DO Admitting Clinician [phone] DARNELL HSU Admitting Clinician Unavailable Payers Payer Name Policy Type Policy Number Effective Date Expirati on Date Source AETNA MP [employer] [employer] 5 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 94 ON 9 [id number] 2023 00:00:00 AESTEPHAN Reynoso/ LUZ MARIA NG [id number] 2023 00:00:00 [facility] INS PROGRAM 2 [id number] 2023 00:00:00 [employer]IG[employer] GENERIC [id number] 2021 00:00:00 [employer] [facility] 6 [id number] [facility] Problems Condition Name Condition Details Condition Category Status Onset Date Resolution Date Last Treatment Date Treating Clinician Comments Source Well adult exam Well adult exam Disease Active 12-16 00:00: 00 Luz Maria Ng - Externa rona Class 1 obesity due to excess calories with serious comorbidit y and body mass index (BMI) of 32.0 to 32.9 in adult Class 1 obesity due to excess calories with serious comorbidit y and body mass index (BMI) of 32.0 to 32.9 in adult Disease Active 12-16 00:00: 00 Luz Maria Ng - Externa l Chronic pancreatit is (multi HCC) Chronic pancreatit is (multi HCC) Disease Active 10-06 00:00: 00 Luz Maria Ng - Externa rona Chronic hepatitis C (multi HCC) Chronic hepatitis C (multi HCC) Disease Active 10-06 00:00: 00 Luz Maria Ng - Externa l Hypertensi on Hypertensi on Disease Active 10-06 00:00: 00 Luz Maria Ng - Externa l GERD (gastroeso phageal reflux disease) GERD (gastroeso phageal reflux disease) Disease Active 10-06 00:00: 00 Luz Maria rea BPH (benign prostatic hyperplasi a) BPH (benign prostatic hyperplasi a) Disease Active 10-06 00:00: 00 Luz Maria Callahana rona Chronic back pain Chronic back pain Disease Active 10-06 00:00: 00 Luz Maria Callahana rona Spondylosi s of lumbar spine Spondylosi s of lumbar spine Disease Active 10-06 00:00: 00 Luz Maria Callahana rona Epigastric pain Epigastric pain Disease Active 10-11 00:00: 00 [facility] SBO (small bowel obstructio n) SBO (small bowel obstructio n) Disease Active 10-30 00:00: 00 [facility] Obesity (BMI 30-39.9) Obesity (BMI 30-39.9) Disease Active 10-30 00:00: 00 [facility] No known active problems No known active problems Disease [facility] [id number] Bladder mass Problem [facility] [id number] Microscopi c hematuria Problem [facility] [id number] Suprapubic pain Problem [facility] [id number] Lower urinary tract symptoms Problem [facility] Allergies, Adverse Reactions, Alerts Allergy Name Allergy Type Status Severity Reaction(s) Onset Date Inactive Date Treating Clinician Comments Source bee venom protein (honey bee) DA Active SV THROAT SWELL 2022-09 00:00: 00 [facility] Bee Venom Propensi ty to adverse reaction s Active Swelling 10-30 00:00: 00 Luz Maria rea BEE VENOM PROTEIN (HONEY BEE) DRUG INGREDI Active Swelling 10-30 00:00: 00 [facility] No Known Allergie s DA Active U 8- 00:00: 00 [facility] NO KNOWN ALLERGIE S Drug Class Active [facility] Social History Social Habit Start Date Stop Date Quantity Comments Source Gender identity Kelsi Ng - External Sexual orientation Trevor Ng - External History of tobacco use Cigarette Smoker Luz Maria trivedi - External Alcoholic beverage intake 2024-04-08 00:00:00 2024-04-08 00:00:00 Ex-drinker (finding) Luz Maria Ng - External Cigarettes smoked current (pack per day) - Reported 2024-03-30 00:00:00 2024-03-30 00:00:00 Luz Maria Ng - External Cigarette pack-years 2024-03-30 00:00:00 2024-03-30 00:00:00 Luz Maria Ng - External Tobacco use and exposure 2024-03-30 00:00:00 2024-03-30 00:00:00 Smokeless tobacco non-user Luz Maria Ng - External Alcohol intake 2023-12-17 00:00:00 2023-12-17 00:00:00 Ex-drinker (finding) Luz Maria Ng - External Education 2023-10-06 00:00:00 2023-10-06 00:00:00 16 Luz Maria Ng - External Alcohol Comment 2023-10-06 00:00:00 2023-10-06 00:00:00 sober since 2016 Luz Maria Ng - External History of Social function 2023-06-01 00:00:00 2023-06-01 00:00:00 Luz Maria Ng - External Exposure to SARS-CoV-2 (event) 2022-11-28 00:00:00 2022-12-08 23:50:00 Not sure [facility] Sex assigned at 1970 00:00:00 1970 00:00:00 Luz Maria Ng - External Smoking Status Start Date Stop Date Source Ex-smoker 2024-03-30 00:00:00 2024-03-30 00:00:00 Luz Maria Ng - External Occasional tobacco smoker 2023-05-20 00:00:00 Luz Maria Espinosa External Never smoked tobacco [facility] Unknown if ever smoked [facility] Medications Ordered Medication Name Filled Medication Name Start Date Stop Date Current Medication? Ordering Clinician Indication Dosage Frequency Signature (SIG) Comments Components Source diphenhydrA MINE:lidoca ine 2% viscous:maa lox 1:1:1 (FIRST-MOUT HWASH BLM) oral suspension 15 mL 04-02 16:30: 00 04-02 15:34 :00 No 15mL 15 mL, Oral (Swish & Swallow), ONCE, 1 dose, On 04/02/24 at 1130, Routine [facility] famotidine (PEPCID (PF)) injection 20 mg 04-02 15:30: 00 04-02 15:34 :00 No 20mg 20 mg, Slow IV Push, ONCE, 1 dose, On 04/02/24 at 1030, VASILIY [facility] NaCl 0.9% (NS) bolus infusion 2,000 mL 04-02 15:15: 00 04-02 17:55 :00 No 2000mL at 999 mL/hr, 2,000 mL, IV Infusion, ONCE, 1 dose, On 04/02/24 at 1015, STAT [facility] ondansetron (ZOFRAN (PF)) injection 4 mg 04-02 15:15: 00 04-02 14:27 :00 No 4mg 4 mg, Slow IV Push, ONCE, 1 dose, On 04/02/24 at 1015, VASILIY [facility] iopamidol (ISOVUE 370-500 mL) injection 90 mL 04-02 14:45: 00 04-02 15:00 :00 No [id number] 90mL 90 mL, Intravenou s, ONCE, 1 dose, On 04/02/24 at 1000, Routine [facility] morpHINE (4 mg/mL) injection 4 mg 04-02 14:15: 00 04-02 14:27 :00 No 4mg 4 mg, Slow IV Push, ONCE, 1 dose, On 04/02/24 at 0915, STAT [facility] Sucralfate 1 g oral Tablet 04-02 00:00: 00 Yes 1g Take 1 tablet (1 g total) by mouth before meals and at bedtime. Luz Maria Ng - Madison l Sod Picosulfate -Mag Ox-Cit Acd (Clenpiq) 10-3.5-12 MG-GM -GM/175ML oral Solution 03-30 00:00: 00 Yes [id number] Instructio ns provided to patient. Follow instructio ns provided by provider.. Luz Maria rea Omeprazole 40 MG oral Delayed Release Capsule 03-30 00:00: 00 Yes [id number] 40mg QD Take 1 capsule (40 mg total) by mouth daily. Luz Maria rea NaCl 0.9% (NS) bolus infusion 1,000 mL 02-20 03:45: 00 02-20 04:50 :00 No 1000mL at 999 mL/hr, 1,000 mL, IV Infusion, ONCE, 1 dose, On 02/20/24 at 2245, [facility] FENTanyl PF (SUBLIMAZE (PF)) injection 50 mcg 02-20 03:00: 00 02-20 03:07 :00 No 50ug 50 mcg, Slow IV Push, ONCE, 1 dose, On 02/20/24 at 2200, Routine [facility] metoclopram jerilyn HCl (REGLAN) injection 10 mg 02-20 03:00: 00 02-20 03:07 :00 No 10mg 10 mg, Slow IV Push, ONCE, 1 dose, On 02/20/24 at 2200, [facility] bisacodyL (DULCOLAX) tablet 5 mg 02-20 03:00: 00 02-20 03:07 :00 No 5mg 5 mg, Oral, ONCE NOW, 1 dose, On 02/20/24 at 2200, Routine [facility] Bisacodyl (DULCOLAX) 5 MG oral Tablet Delayed Response 02-19 00:00: 00 Yes 5mg QD Take 1 tablet (5 mg total) by mouth daily as needed. Luz Maria rea dicyclomine 20 mg tablet 02-19 00:00: 00 Yes [id number] 20mg Take 1 tablet by mouth 4 (four) times daily as needed for Abdominal pain. [facility] Ketorolac Tromethamin e 10 MG oral Tablet 12-16 15:16: 47 12-16 00:00 :00 No 10mg Q.25D Take 1 tablet (10 mg total) by mouth every 6 hours as needed for pain FOR PAIN. [facility]z Maria re[facility] Cyclobenzap rine HCl 10 MG oral Tablet 12-16 00:00: 00 Yes [id number] 10mg QD Take 1 tablet (10 mg total) by mouth nightly as needed for muscle spasms. Luz Maria rea HYDROcodone -acetaminop hen (NORCO) 10-325 mg tablet 1 tablet 12-09 04:45: 00 12-09 03:57 :00 No 1{tbl} 1 tablet, Oral, ONCE NOW, 1 dose, On Thu12/09/23 at 2345, Routine [facility] iopamidol (ISOVUE 370-500 mL) injection 100 mL 12-09 03:30: 00 12-09 03:30 :00 No [id number] 100mL 100 mL, Intravenou s, ONCE, 1 dose, On Thu12/09/23 at 2230, Routine [facility] ketorolac (TORADOL) injection 30 mg 12-09 03:00: 00 12-09 02:04 :00 No 30mg 30 mg, Slow IV Push, ONCE, 1 dose, On Thu12/09/23 at 2200, Routine [facility] Methocarbam ol 750 MG oral Tablet 12-09 00:00: 00 12-16 00:00 :00 No 750mg Q.25D Take 1 tablet (750 mg total) by mouth every 6 hours as needed FOR PAIN. Luz Maria rea ketorolac 10 mg tablet 12-08 00:00: 00 Yes [id number] 10mg Take 1 tablet by mouth every 6 (six) hours as needed for Pain (scale 7-10). [facility] methocarbam oL 750 mg tablet 12-08 00:00: 00 Yes [id number] 750mg Take 1 tablet by mouth every 6 (six) hours as needed for Pain (scale 7-10) (MUSCLE SPASM). [facility] Ketorolac Tromethamin e (TORADOL IM) 12-05 00:00: 00 12-16 00:00 :00 No Luz Maria rea Lisinopril 10 MG oral Tablet 10-06 14:45: 28 10-06 00:00 :00 No 10mg Take 1 tablet (10 mg total) by mouth daily. Luz Maria rea Gabapentin 300 MG oral Capsule 10-06 00:00: 00 Yes [id number] 300mg Q.5D Take 1 capsule (300 mg total) by mouth 2 times daily as needed. [facility] Maria rea Pancrelipas e, Lip-Prot-Am yl, (Creon) [id number] units [address] Particles 10-06 00:00: 00 Yes [id number] 1{capsu le} Take 1 capsule by mouth 3 times daily (with meals). Luz Maria rea Amlodipine Besylate 10 MG oral Tablet 10-06 00:00: 00 Yes [id number] 10mg QD Take 1 tablet (10 mg total) by mouth daily. Luz Maria rea Lisinopril 10 MG oral Tablet 10-06 00:00: 00 Yes [id number] 10mg QD Take 1 tablet (10 mg total) by mouth daily. Luz Maria rea Famotidine (PEPCID) 20 MG oral tablet 10-06 00:00: 00 Yes [id number] 20mg Q.5D Take 1 tablet (20 mg total) by mouth 2 times daily. Luz Maria rea Pantoprazol e Sodium 20 MG oral Tablet Delayed Response 10-06 00:00: 00 03-30 00:00 :00 No [id number] 20mg Take 1 tablet (20 mg total) by mouth every morning. Luz Maria rea HYDROcodone -acetaminop hen (NORCO) 10-325 mg tablet 1 tablet 2022-09 06:45: 00 08-04 05:38 :00 No 1{tbl} 1 tablet, Oral, ONCE NOW, 1 dose, On Thu08/04/23 at 0045, VASILIY [facility] methocarbam oL (ROBAXIN) tablet 1,000 mg 2022-09 05:45: 00 08-04 05:38 :00 No 1000mg 1,000 mg, Oral, ONCE, 1 dose, On Thu08/03/23 at 2345, VASILIY [facility] FENTanyl PF (SUBLIMAZE (PF)) injection 75 mcg 2022-09 05:00: 00 08-04 04:14 :00 No 75ug 75 mcg, Slow IV Push, ONCE, 1 dose, On Thu08/03/23 at 2300, Routine [facility] NaCl 0.9% (NS) IV infusion 1,000 mL 2022-09 04:45: 00 08-04 05:39 :00 No 1000mL at 999 mL/hr, Intravenou s, ONCE, 1 dose, On Thu08/03/23 at 2245, Routine [facility] methocarbam oL 500 mg tablet 2022-09 00:00: 00 Yes [id number] 500mg Take 1 tablet by mouth every 6 (six) hours as needed (MUSCLE SPASM). [facility] HYDROcodone -acetaminop hen (NORCO) 10-325 mg tablet 2022-09 00:00: 00 08-11 05:59 :00 No [id number] 1{tbl} Take 1 tablet by mouth every 6 (six) hours as needed for Pain (scale 7-10) for up to 7 days. Indication s: acute pain [facility] diphenhydrA MINE (BENADRYL) injection 25 mg 2022-09 19:30: 00 07-25 18:34 :00 No 25mg 25 mg, Slow IV Push, ONCE, 1 dose, On 07/25/23 at 1330, STAT [facility] metoclopram jerilyn HCl (REGLAN) injection 10 mg 2022-09 19:30: 00 07-25 18:34 :00 No 10mg 10 mg, Slow IV Push, ONCE, 1 dose, On 07/25/23 at 1330, VASILIY [facility] morpHINE (4 mg/mL) injection 4 mg 2022-09 17:30: 00 07-25 16:43 :00 No 4mg 4 mg, Slow IV Push, ONCE, 1 dose, On 07/25/23 at 1130, STAT [facility] ondansetron (ZOFRAN (PF)) injection 4 mg 2022-09 17:15: 00 07-25 16:43 :00 No 4mg 4 mg, Slow IV Push, ONCE, 1 dose, On 07/25/23 at 1115, VASILIY [facility] NaCl 0.9% (NS) bolus infusion 1,000 mL 2022-09 17:15: 00 07-25 18:54 :00 No 1000mL at 999 mL/hr, 1,000 mL, IV Infusion, ONCE, 1 dose, On 07/25/23 at 1115, STAT [facility] metoclopram jerilyn HCl 10 mg tablet 2022-09 00:00: 00 Yes [id number] 10mg Take 1 tablet by mouth every 6 (six) hours. [facility] sodium chloride (NS) injection 5 mL 2022-09 19:45: 30 Yes 5mL 5 mL, Intravenou s, PRN, Starting on Thu07/24/23 at 1345, Until Discontinu ed, Routine, IV line flushing [facility] dicyclomine 20 mg tablet 2022-09 00:00: 00 02-19 00:00 :00 No [id number] 20mg Take 1 tablet by mouth 4 (four) times daily as needed for Abdominal pain. [facility] ketorolac (TORADOL) injection 15 mg 2022-09 029 03:15: 00 07-12 02:32 :00 No 15mg 15 mg, Slow IV Push, ONCE, 1 dose, On 07/11/23 at 2215, Routine [facility] methocarbam oL (ROBAXIN) tablet 1,000 mg 2022-09 02:30: 00 07-12 02:32 :00 No 1000mg 1,000 mg, Oral, ONCE, 1 dose, [facility] 07[facility]11/23 [facility] 2130[facility] famot[facility] (PEPCID (PF)) injection 20 mg 2022-09 02:30: 00 07-12 02:32 :00 No 20mg 20 mg, Slow IV Push, ONCE, 1 dose, On 07/11/23 at 2130, [facility] aspirin chewable tablet 324 mg 2022-09 02:15: 00 07-12 02:31 :00 No 324mg 324 mg, Oral, ONCE, 1 dose, On 07/11/23 at 2115, STAT [facility] HYDROcodone -acetaminop hen 5-325 mg tablet 2022-09 00:00: 00 07-15 04:59 :00 No [id number] 1{tbl} Take 1 tablet by mouth every 4 (four) hours as needed for Pain (scale 7-10) for up to 3 days. Indication s: acute pain [facility] omeprazole 40 mg capsule 2022-09 00:00: 00 Yes [id number] 40mg Take 1 capsule by mouth in the morning and 1 capsule in the evening. [facility] peg-electro lyte soln 236-22.74-6 .74 -5.86 gram solution 2022-09 00:00: 00 Yes [id number] Take as directed before colonoscop y [facility] Lisinopril 10 MG oral Tablet 2022-09 [...] ONCE, 1 dose, On Thu07/03/23 at 0845, [facility] famotidine (PEPCID (PF)) injection 20 mg 2022-09 13:00: 00 07-03 12:49 :00 No 20mg 20 mg, Slow IV Push, ONCE, 1 dose, On Thu07/03/23 at 0800, [facility] iohexol (OMNIPAQUE 350 BULK-100 mL) injection 80 mL 2022-09 10:40: 00 07-03 10:40 :00 No [id number] 80mL 80 mL, Intravenou s, ONCE, 1 dose, On Thu07/03/23 at 0545, Routine [facility] ondansetron (ZOFRAN (PF)) injection 4 mg 2022-09 10:15: 00 07-03 10:20 :00 No 4mg 4 mg, Slow IV Push, ONCE, 1 dose, On Thu07/03/23 at 0515, [facility] morpHINE (4 mg/mL) injection 4 mg 2022-09 10:15: 00 07-03 10:20 :00 No 4mg 4 mg, Slow IV Push, ONCE, 1 dose, On Thu07/03/23 at 0515, STAT [facility] Pantoprazol e Sodium 20 MG oral [...] (PEPCID) 20 mg tablet 2022-09 00:00: 00 2023- 10-27 00:00 :00 No [id number] 20mg Take 1 tablet by mouth in the morning and 1 tablet in the evening. [facility] Lisinopril 10 MG oral Tablet 05-20 15:08: 12 Yes 10mg Take 1 tablet (10 mg total) by mouth daily. [facility] Maria rea Tamsulosin HCl 0.4 MG oral Capsule 05-20 00:00: 00 Yes .4mg Take 1 capsule (0.4 mg total) by mouth every night at bedtime. [facility] re[facility] iopamidol (ISOVUE 370-500 mL) injection 80 mL 05-08 03:15: 00 05-08 02:12 :00 No [id number] 80mL 80 mL, Intravenou s, ONCE, 1 dose, On Carrie 05/07/23 at 2215, Routine [facility] morpHINE (4 mg/mL) injection 4 mg 05-08 01:00: 00 05-08 01:38 :00 No 4mg 4 mg, Slow IV Push, ONCE, 1 dose, On Carrie 05/07/23 at 1999, [facility] NaCl 0.9% (NS) bolus infusion 1,000 mL 05-08 01:00: 00 05-08 04:22 :00 No 1000mL at 999 mL/hr, 1,000 mL, IV Infusion, ONCE, 1 dose, On Carrie 05/07/23 at 1999, [facility] NaCl 0.9% (NS) bolus infusion 1,000 mL 05-02 05:15: 00 05-02 05:29 :00 No 1000mL at 999 mL/hr, 1,000 mL, IV Infusion, ONCE, 1 dose, On 05/02/23 at 0015, STAT [facility] famotidine (PEPCID (PF)) injection 20 mg 05-02 04:15: 00 05-02 04:21 :00 No 20mg 20 mg, Slow IV Push, ONCE, 1 dose, On Thu05/01/23 at 2315, [facility] maalox:diph enhydrAMINE :lidocaine 2 % viscous 1:1:1 (FIRST-MOUT HWASH BLM) oral suspension 15 mL 05-02 04:15: 00 05-02 04:21 :00 No 15mL 15 mL, Oral, ONCE, 1 dose, On Thu05/01/23 at 2315, VASILIY [facility] ondansetron (ZOFRAN (PF)) injection 4 mg 05-02 04:15: 00 05-02 03:18 :00 No 4mg 4 mg, Slow IV Push, ONCE, 1 dose, On Thu05/01/23 at 2315, VASILIY [facility] NaCl 0.9% (NS) bolus infusion 1,000 mL 05-02 04:15: 00 05-02 04:15 :00 No 1000mL at 999 mL/hr, 1,000 mL, IV Infusion, ONCE, 1 dose, On Thu05/01/23 at 2315, STAT [facility] metoclopram jerilyn HCl 10 mg tablet 05-01 00:00: 00 Yes [id number] 10mg Take 1 tablet by mouth every 6 (six) hours. [facility] pantoprazol e (PROTONIX) 20 mg EC tablet 05-01 00:00: 00 07-03 00:00 :00 No [id number] 20mg Take 1 tablet by mouth in the morning. [facility] iopamidol (ISOVUE 370-500 mL) injection 70 mL 04-22 16:21: 00 04-22 16:21 :00 No [id number] 70mL 70 mL, Intravenou s, ONCE, 1 dose, On Thu04/22/23 at 1145, Routine [facility] haloperidol lactate (HALDOL) injection 2.5 mg 04-22 16:00: 00 04-22 16:01 :00 No 2.5mg 2.5 mg, Intravenou s, ONCE, 1 dose, On Thu04/22/23 at 1100, STAT [facility] NaCl 0.9% (NS) bolus infusion 500 mL 04-22 14:45: 00 04-22 15:30 :00 No 500mL at 999 mL/hr, 500 mL, IV Infusion, ONCE, 1 dose, On Thu04/22/23 at 0945, STAT [facility] maalox:diph enhydrAMINE :lidocaine 2 % viscous 1:1:1 (FIRST-MOUT HWASH BLM) oral suspension 15 mL 04-22 13:00: 00 04-22 12:55 :00 No 15mL 15 mL, Oral, ONCE, 1 dose, On Thu04/22/23 at 0800, Routine [facility] NaCl 0.9% (NS) IV infusion 1,000 mL 04-22 12:45: 00 Yes 1000mL at 999 mL/hr, Intravenou s, CONTINUOUS , Starting on Thu04/22/23 at 0745, Until Discontinu ed, Routine [facility] NaCl 0.9% (NS) bolus infusion 1,000 mL 04-22 10:30: 00 04-22 11:30 :00 No 1000mL at 999 mL/hr, 1,000 mL, IV Infusion, ONCE, 1 dose, On Thu04/22/23 at 0530, STAT [facility] ketorolac (TORADOL) injection 30 mg 04-22 10:30: 00 04-22 09:21 :00 No 30mg 30 mg, Slow IV Push, ONCE, 1 dose, On Thu04/22/23 at 0530, Routine [facility] diphenhydrA MINE (BENADRYL) injection 25 mg 04-22 09:30: 00 04-22 09:21 :00 No 25mg 25 mg, Slow IV Push, ONCE, 1 dose, On Thu04/22/23 at 0430, STAT [facility] metoclopram jerilyn HCl (REGLAN) injection 10 mg 04-22 09:30: 00 04-22 09:21 :00 No 10mg 10 mg, Slow IV Push, ONCE, 1 dose, On 8/9/23 at 0430, VASILIY [facility] NaCl 0.9% (NS) bolus infusion 1,000 mL 04-22 09:15: 00 04-22 10:28 :00 No 1000mL at 999 mL/hr, 1,000 mL, IV Infusion, ONCE, 1 dose, On Thu04/22/23 at 0415, STAT [facility] Tramadol HCl (ULTRAM) 50 MG oral [...] 2 capsule, Oral, ONCE, 1 dose, On Thu04/16/23 at 0915, Routine [facility] famotidine (PEPCID (PF)) injection 20 mg 04-16 13:30: 00 04-16 12:33 :00 No 20mg 20 mg, Slow IV Push, ONCE NOW, 1 dose, On Thu04/16/23 at 0830, [facility] dicyclomine (BENTYL) injection 20 mg 04-16 13:30: 00 04-16 12:34 :00 No 20mg 20 mg, Intramuscu lar, ONCE NOW, 1 dose, On Thu04/16/23 at 0830, Routine [facility] enalaprilat (VASOTEC I.V.) injection 1.25 mg 04-16 13:15: 00 04-16 13:17 :00 No 1.25mg 1.25 mg, Slow IV Push, ONCE, 1 dose, On [facility] 04/16/23 at 0815, STAT [facility] [facility] lactulose (CEPHULAC) solution 45 mL 04-16 13:15: 00 04-16 13:18 :00 No 45mL 45 mL, Oral, ONCE, 1 dose, On [facility] 04/16/23 at 0815, VASILIY [facility] ketorolac (TORADOL) injection 30 mg 04-16 13:15: 00 04-16 12:32 :00 No 30mg 30 mg, Slow IV Push, ONCE NOW, 1 dose, On [facility] 04/16/23 at 0815, [facility]ILIY [facility] NaCl 0.9% (NS) bolus infusion 1,000 mL 04-16 13:15: 00 04-16 13:54 :00 No 1000mL at 999 mL/hr, 1,000 mL, IV Piggyback, ONCE, 1 dose, On [facility] 04/16/23 at 0815, STAT [facility] lipase-prot ease-amylas e (CREON) 3,000-9,500 - 15,000 unit capsule 04-16 00:00: 00 Yes [id number] 3000U Take 1 capsule by mouth in the morning and 1 capsule at noon and 1 capsule in the evening. Take with meals. [facility] hyoscyamine sulfate (LEVSIN/SL) 0.125 mg sublingual tablet 04-16 00:00: [id number] 2 tablets under the tongue every 6 (six) hours as needed (Abdominal pain or cramping). [facility] bisacodyL 5 mg EC tablet 04-16 00:00: 00 Yes [id number] 5mg Take 1 tablet by mouth once daily as needed for Constipati on. [facility] Famotidine (PEPCID) 20 MG oral tablet 8-03 00:00: 00 10-06 00:00 :00 No 20mg Take 1 tablet (20 mg total) by mouth 2 times daily. [facility] Lorazepam 1 MG oral Tablet 04-05 00:00: 00 10-06 00:00 :00 No 1mg [id number] 3D Take 1 tablet (1 mg total) by mouth every 8 hours as needed. [facility] iopamidol (ISOVUE 370-500 mL) injection 100 mL 04-01 07:45: 00 04-01 06:58 :00 No [id number] 100mL 100 mL, Intravenou s, ONCE, 1 dose, On Thu04/01/23 at 0245, Routine [facility] famotidine (PEPCID (PF)) injection 20 mg 04-01 05:45: 00 04-01 06:09 :00 No 20mg 20 mg, Slow IV Push, ONCE, 1 dose, On Thu04/01/23 at 0045, [facility] FENTanyl PF (SUBLIMAZE (PF)) injection 50 mcg 04-01 05:38: 00 04-01 06:10 :00 No 50ug 50 mcg, Slow IV Push, ONCE, 1 dose, On Thu04/01/23 at 0045, [facility] NaCl 0.9% (NS) IV infusion 1,000 mL 04-01 05:05: 00 04-01 06:30 :00 No 1000mL at 999 mL/hr, Intravenou s, ONCE, 1 dose, On Thu04/01/23 at 0015, [facility] ondansetron (ZOFRAN (PF)) injection 4 mg 04-01 05:05: 00 04-01 05:08 :00 No 4mg 4 mg, Slow IV Push, ONCE, 1 dose, On Thu04/01/23 at 0015, [facility] sodium chloride (NS) injection 5 mL 04-01 05:04: 36 Yes 5mL 5 mL, Intravenou s, PRN, Starting on Thu04/01/23 at 0004, Until Discontinu ed, Routine, IV line flushing [facility] ondansetron 4 mg disintegrat ing tablet 04-01 00:00: 00 Yes [id number] 4mg Take 1 tablet by mouth every 8 (eight) hours as needed for Nausea and Vomiting (N/V). [facility] traMADoL 50 mg tablet 04-01 00:00: 00 04-09 04:59 :00 No [id number] 50mg Take 1 tablet by mouth every 8 (eight) hours as needed for Pain (scale 4-6) for up to 7 days. Indication s: acute pain [facility] predniSONE (DELTASONE) tablet 40 mg 12-09 07:15: 00 12-09 06:33 :00 No 40mg 40 mg, Oral, ONCE, 1 dose, On Thu12/09/22 at 0215, [facility]ILIY [facility] traMADoL (ULTRAM) tablet 50 mg 12-09 07:15: 00 12-09 06:33 :00 No 50mg 50 mg, Oral, ONCE, 1 dose, On Thu12/09/22 at 0215, [facility] iopamidol (ISOVUE 370-500 mL) injection 100 mL 12-09 06:15: 00 12-09 06:15 :00 No [id number] 100mL 100 mL, Intravenou s, ONCE, 1 dose, On Thu12/09/22 at 0115, Routine [facility] ketorolac (TORADOL) injection 30 mg 12-09 06:15: 00 12-09 05:30 :00 No 30mg 30 mg, Slow IV Push, ONCE, 1 dose, On Thu12/09/22 at 0115, [facility] morpHINE (4 mg/mL) injection 4 mg 12-09 06:15: 00 12-09 05:30 :00 No 4mg 4 mg, Slow IV Push, ONCE, 1 dose, On Thu12/09/22 at 0115, [facility]Y [facility] NaCl 0.9% (NS) bolus infusion 1,000 mL 12-09 06:15: 00 12-09 06:33 :00 No 1000mL at 999 mL/hr, 1,000 mL, IV Infusion, ONCE, 1 dose, On Thu12/09/22 at 0115, [facility]ILIY [facility] ondansetron (ZOFRAN (PF)) injection 8 mg 12-09 05:30: 00 12-09 05:30 :00 No 8mg 8 mg, Slow IV Push, ONCE, 1 dose, On Thu12/09/22 at 0030, [facility] traMADoL 50 mg tablet 12-09 00:00: 00 Yes [id number] 50mg Take 1 tablet by mouth every 6 (six) hours as needed (pain). Indication s: acute pain [facility] ondansetron 4 mg tablet 12-09 00:00: 00 Yes [id number] 1-2 tablets every 8 hours as needed for nausea [facility] predniSONE 20 mg tablet 12-09 00:00: 00 12-17 04:59 :00 No [id number] 40mg Take 2 tablets by mouth in the morning for 7 days. [facility] iopamidol (ISOVUE 370-500 mL) injection 100 mL 11-25 06:15: 00 11-25 06:15 :00 No [id number] 100mL 100 mL, Intravenou s, ONCE, 1 dose, On Thu11/25/22 at 0115, Routine [facility] NaCl 0.9% (NS) bolus infusion 1,000 mL 11-25 06:00: 00 11-25 07:00 :00 No 1000mL at 999 mL/hr, 1,000 mL, IV Infusion, ONCE, 1 dose, On Thu11/25/22 at 0100, STAT [facility] FENTanyl PF (SUBLIMAZE (PF)) injection 50 mcg 11-25 05:45: 00 11-25 05:03 :00 No 50ug 50 mcg, Slow IV Push, ONCE, 1 dose, On Thu11/25/22 at 0045, Routine [facility] ondansetron (ZOFRAN (PF)) injection 4 mg 11-25 05:00: 00 11-25 05:04 :00 No 4mg 4 mg, Slow IV Push, ONCE, 1 dose, On Thu11/25/22 at 0000, VASILIY [facility] Pancrelipas e, Lip-Prot-Am yl, (Creon) [address] units oral Cap DR Particles 10-13 00:00: 00 10-06 00:00 :00 No [facility] lipase-prot ease-amylas e (CREON) 12,000-38,0 00 -60,000 unit capsule 2 capsule 10-12 23:00: 00 Yes 2{capsu le} 2 capsule, Oral, TID MEALS, First dose on Thu10/12/22 at 1700, Until Discontinu ed, Routine [facility] lisinopriL 10 mg tablet 10-12 17:56: 15 Yes 10mg Take 10 mg by mouth in the morning. [facility] meloxicam (MOBIC) tablet 7.5 mg 10-12 17:15: 00 Yes 7.5mg 7.5 mg, Oral, DAILY, First dose on Thu10/12/22 at 1115, Until Discontinu ed, Routine [facility] omeprazole (PRILOSEC) capsule 20 mg 10-12 15:00: 00 Yes 20mg 20 mg, Oral, DAILY, First dose on Thu10/12/22 at 0900, Until Discontinu ed, Routine [facility] Pantoprazol e Sodium 40 MG oral Tablet Delayed Response 10-12 00:00: 00 10-06 00:00 :00 No [facility] Callahana l lipase-prot ease-amylas e 12,000-38,0 00 -60,000 unit capsule 10-12 00:00: 00 01-11 04:59 :00 No [id number] 2{capsu le} Take 2 capsules by mouth in the morning and 2 capsules at noon and 2 capsules in the evening. Take with meals. Do all this for 90 days. Do not crush or chew. [facility] meloxicam 7.5 mg tablet 10-12 00:00: 00 10-27 05:59 :00 No [id number] 7.5mg Take 1 tablet by mouth once daily as needed for Pain (scale 7-10) for up to 14 days. [facility] HYDROcodone -acetaminop hen 5-325 mg tablet 10-12 00:00: 00 10-20 05:59 :00 No [id number] 1{tbl} Take 1 tablet by mouth every 6 (six) hours as needed for Pain (scale 4-6) for up to 7 days. Indication s: acute pain [facility] amLODIPine (NORVASC) tablet 10 mg 10-11 20:00: 00 Yes 10mg 10 mg, Oral, DAILY, First dose on 10/11/22 at 1400, Until Discontinu ed, Routine [facility] lactated ringers IV infusion 1,000 mL 10-11 20:00: 00 10-12 14:03 :28 No 1000mL at 125 mL/hr, 1,000 mL, IV Infusion, CONTINUOUS , Starting on 10/11/22 at 1400, Until 10/12/22 at 0803, Routine [facility] HYDROcodone -acetaminop hen (NORCO 5) 5-325 mg tablet 1 tablet 10-11 19:35: 19 10-13 19:34 :19 No 1{tbl} 1 tablet, Oral, Q6HPRN, Starting on 10/11/22 at 1335, Until 10/13/22 at 1334, Routine, Pain (scale 4-6) [facility] acetaminoph en (TYLENOL) tablet 650 mg 10-11 19:35: 16 Yes 650mg 650 mg, Oral, Q6HPRN, Starting on 10/11/22 at 1335, Until Discontinu ed, Routine, Pain (scale 1-3) [facility] NaCl 0.9% (NS) bolus infusion 1,000 mL 10-11 16:45: 00 10-11 16:02 :00 No 1000mL at 999 mL/hr, 1,000 mL, Intravenou s, ONCE, 1 dose, On 10/11/22 at 1045, STAT [facility] ondansetron (ZOFRAN (PF)) injection 4 mg 10-11 16:15: 00 10-11 16:15 :00 No 4mg 4 mg, Slow IV Push, ONCE, 1 dose, On 10/11/22 at 1015, VASILIY [facility] morpHINE (4 mg/mL) injection 4 mg 10-11 16:15: 00 10-11 16:14 :00 No 4mg 4 mg, Slow IV Push, ONCE, 1 dose, On 10/11/22 at 1015, STAT [facility] iopamidol (ISOVUE 370-500 mL) injection 120 mL 10-11 15:45: 00 10-11 14:43 :00 No [id number] 120mL 120 mL, Intravenou s, ONCE, 1 dose, On 10/11/22 at 0945, Routine [facility] FENTanyl PF (SUBLIMAZE (PF)) injection 50 mcg 10-09 08:30: 00 10-09 07:23 :00 No 50ug 50 mcg, Slow IV Push, ONCE, 1 dose, On Carrie 10/09/22 at 0230, Routine [facility] iopamidol (ISOVUE 370-500 mL) injection 100 mL 10-09 07:15: 00 10-09 07:15 :00 No [id number] 100mL 100 mL, Intravenou s, ONCE, 1 dose, On [place] 10/09/22 at 0115, Routine [facility] ketorolac (TORADOL) injection 30 mg 10-09 06:15: 00 10-09 05:25 :00 No 30mg 30 mg, Slow IV Push, ONCE, 1 dose, On [place] 10/09/22 at 0015, Routine [facility] ondansetron (ZOFRAN) 4 mg tablet 10-09 00:00: 00 Yes [id number] 4mg Take 1 tablet by mouth every 8 (eight) hours as needed for Nausea and Vomiting (N/V). [facility] traMADoL (ULTRAM) 50 mg tablet 10-09 00:00: 00 Yes [id number] 50mg Take 1 tablet by mouth every 6 (six) hours as needed for Pain (scale 7-10). Indication s: acute pain [facility] ketorolac (TORADOL) injection 30 mg 2021-09 17:15: 00 08-20 16:35 :00 No 30mg 30 mg, Intramuscu lar, ONCE, 1 dose, [facility]08[facility]20/22 [facility] 1115[facility] Bes[facility] oral Tablet 2021-09 00:00: 00 10-06 00:00 :00 No [facility] rea morpHINE (4 mg/mL) injection 4 mg 06-09 13:15: 00 06-09 12:54 :00 No 4mg 4 mg, Slow IV Push, ONCE, 1 dose, On Thu06/09/22 at 0815, [facility]ADOL[facility] 30 mg 06-09 13:15: 00 06-09 12:55 :00 No 30mg 30 mg, Slow IV Push, ONCE, 1 dose, On Thu06/09/22 at 0815, [facility] iop[facility] (ISOVUE 370-500 mL) injection 60 mL 06-09 13:07: 00 06-09 13:08 :00 No [id number] 60mL 60 mL, Intravenou s, ONCE, 1 dose, On Thu06/09/22 at 0815, Routine [facility] ondansetron (ZOFRAN (PF)) injection 4 mg 06-09 12:30: 00 06-09 12:54 :00 No 4mg 4 mg, Slow IV Push, ONCE, 1 dose, On Thu06/09/22 at 0730, VASILIY [facility] dexamethaso ne sod phos PF injection 10 mg 06-09 12:30: 00 06-09 12:55 :00 No 10mg 10 mg, Slow IV Push, ONCE, 1 dose, On Thu06/09/22 at 0730, 1 mL [facility] traMADoL 50 mg tablet 06-09 00:00: 00 10-11 00:00 :00 No [id number] 50mg Take 1 tablet by mouth every 6 (six) hours as needed (pain). Indication s: acute pain [facility] lidocaine 5 % (700 mg/patch) patch 06-09 00:00: 00 10-11 00:00 :00 No [id number] Apply one patch to most painful area up to 12 hours a day as needed for pain. PHARMACIST : dispense one box [facility] predniSONE 20 mg tablet 06-09 00:00: 00 06-17 04:59 :00 No [id number] 40mg Take 2 tablets by mouth in the morning for 7 days. [facility] Dose Unknown 02-03 00:00: 00 No Dose Unknown 02-03 00:00: 00 No lisinopriL (PRINIVIL,Z ESTRIL) tablet 20 mg 11-01 03:00: 00 Yes 20mg 20 mg, Oral, QHS, First dose (after last modificati on) on Carrie 10/31/21 at 2100, Until Discontinu ed, Routine [facility] lisinopriL 20 mg tablet 11-01 00:00: 00 12-02 04:59 :00 No [id number] 20mg Take 1 tablet by mouth at bedtime for 30 days. [facility] lactated ringers IV infusion 1,000 mL 10-31 19:00: 00 Yes 1000mL at 75 mL/hr, 1,000 mL, IV Infusion, CONTINUOUS , Starting on Thu10/31/21 at 1300, Until Discontinu ed, Routine [facility] amLODIPine (NORVASC) tablet 10 mg 10-31 15:00: 00 Yes 10mg 10 mg, Oral, DAILY, First dose on Carrie 10/31/21 at 0900, Until Discontinu ed, Routine [facility] enoxaparin (LOVENOX) injection 40 mg 10-31 15:00: 00 Yes 40mg 40 mg, Subcutaneo us, DAILY, First dose on Thu10/31/21 at 0900, Until Discontinu ed, Routine [facility] lactated ringers IV infusion 1,000 mL 10-31 07:00: 00 10-31 18:45 :24 No 1000mL at 150 mL/hr, 1,000 mL, IV Infusion, CONTINUOUS , Starting on Thu10/31/21 at 0100, Until Thu10/31/21 at 1245, Routine [facility] lactated ringers IV infusion 1,000 mL 10-31 01:00: 00 10-31 06:52 :16 No 1000mL at 75 mL/hr, 1,000 mL, IV Infusion, CONTINUOUS , Starting on Thu10/30/21 at 1900, Until Thu10/31/21 at 0052, Routine [facility] morpHINE injection 4 mg 10-31 00:43: 35 11-01 00:42 :35 No 4mg 4 mg, Slow IV Push, Q4HPRN, Starting on Thu10/30/21 at 1843, Until Thu10/31/21 at 1842, Routine, Pain (scale 7-10) [facility] HYDROcodone -acetaminop hen (NORCO 5) 5-325 mg tablet 1 tablet 10-31 00:43: 32 11-02 00:42 :32 No 1{tbl} 1 tablet, Oral, Q6HPRN, Starting on Thu10/30/21 at 1843, Until Thu11/01/21 at 1842, Routine, Pain (scale 4-6) [facility] acetaminoph en (TYLENOL) tablet 650 mg 10-31 00:43: 22 Yes 650mg 650 mg, Oral, Q6HPRN, Starting on Thu10/30/21 at 1843, Until Discontinu ed, Routine, Pain (scale 1-3) [facility] ondansetron (ZOFRAN (PF)) injection 4 mg 10-30 21:15: 00 10-30 20:28 :00 No 4mg 4 mg, Slow IV Push, ONCE, 1 dose, On Thu10/30/21 at 1515, VASILIY [facility] morpHINE injection 4 mg 10-30 21:15: 00 10-30 20:29 :00 No 4mg 4 mg, Slow IV Push, ONCE, 1 dose, On Thu10/30/21 at 1515, STAT [facility] NaCl 0.9% (NS) bolus infusion 1,000 mL 10-30 21:15: 00 10-30 20:29 :00 No 1000mL at 999 mL/hr, 1,000 mL, IV Infusion, ONCE, 1 dose, On Thu10/30/21 at 1515, VASILIY [facility] iopamidol (ISOVUE 370-500 mL) injection 100 mL 10-30 20:37: 00 10-30 20:35 :00 No [id number] 100mL 100 mL, Intravenou s, ONCE, 1 dose, On Thu10/30/21 at 1445, Routine [facility] lisinopril 10 mg tablet 2 00:00: 00 No 1mg amlodipine 10 mg tablet 2- 00:00: 00 No 1mg lisinopril 10 mg tablet 2020-09 0-13 00:00: 00 No 1mg amlodipine 10 mg tablet 2020-09 0-13 00:00: 00 No 1mg NaCl 0.9% (NS) bolus infusion 1,000 mL -10 03:45: 00 2021- 09-10 05:00 :00 No 1000mL at 999 mL/hr, 1,000 mL, IV Piggyback, ONCE, 1 dose, [facility] 05/23/21 at 2245, STAT [facility] NaCl 0.9% (NS) bolus infusion 1,000 mL 05-24 03:00: 00 05-24 03:00 :00 No 1000mL at 999 mL/hr, 1,000 mL, IV Piggyback, ONCE, 1 dose, [facility] 05/23/21 at 2200, STAT [facility] NaCl 0.9% (NS) bolus infusion 500 mL 05-23 03:15: 00 05-23 15:14 :00 No 500mL at 999 mL/hr, 500 mL, IV Piggyback, ONCE, 1 dose, 05/22/21 at 2215, [facility] dexamethaso ne (DECADRON PHOSPHATE) injection 10 mg 04-02 03:30: 00 04-02 02:47 :00 No 10mg 10 mg, Intramuscu lar, ONCE, 1 dose, 04/01/21 at 2230, [facility] ketorolac (TORADOL) injection 60 mg 03-18 04:00: 00 03-18 02:56 :00 No 60mg 60 mg, Intramuscu lar, ONCE, 1 dose, [place] 03/17/21 at 2300, VASILIY
Fa culty member approving Restricted medication : EMERGENCY ROOM, [facility] ibuprofen 800 mg tablet 03-17 00:00: 00 05-23 00:00 :00 No [id number] 800mg Take 1 tablet by mouth every 8 (eight) hours as needed for Pain (scale 4-6). [facility] acetaminoph en-codeine 300-30 mg tablet 03-17 00:00: 00 03-25 04:59 :00 No [id number] 1{tbl} Take 1 tablet by mouth every 6 (six) hours as needed for Pain (scale 7-10) for up to 7 days. Indication s: acute pain [facility] benzonatate (TESSALON PERLES) capsule 200 mg 3-04 05:00: 00 11-15 04:51 :00 No 200mg 200 mg, Oral, ONCE, 1 dose, 11/14/20 at 2300, Routine [facility] Dose Unknown 11-14 00:00: 00 No Dose Unknown 11-14 00:00: 00 No benzonatate 100 mg capsule - 00:00: 00 05-23 00:00 :00 No [id number] 100mg Take 1 capsule by mouth 3 (three) times daily as needed for Cough. [facility] diphenhydrA MINE (BENADRYL) injection 25 mg 09-30 16:00: 00 09-30 15:17 :00 No 25mg 25 mg, Slow IV Push, ONCE, 1 dose, 09/30/20 at 1000, STAT [facility] metoclopram jerilyn HCl (REGLAN) injection 10 mg 09-30 16:00: 00 09-30 15:17 :00 No 10mg 10 mg, Slow IV Push, ONCE, 1 dose, 09/30/20 at 1000, VASILIY [facility] NaCl 0.9% (NS) bolus infusion 1,000 mL 09-30 15:00: 00 09-30 16:45 :00 No 1000mL at 999 mL/hr, 1,000 mL, IV Infusion, ONCE, 1 dose, 09/30/20 at 0900, VASILIY [facility] amLODIPine (NORVASC) 10 mg tablet 09-30 00:00: 00 Yes [id number] 10mg Take 1 tablet by mouth daily. [facility] lisinopriL 10 mg tablet 09-30 00:00: 00 11-01 00:00 :00 No [id number] 10mg Take 1 tablet by mouth at bedtime. [facility] Dose Unknown 2019-09 0 00:00: 00 No Dose Unknown 2019-09 0 00:00: 00 No maalox:diph enhydrAMINE :lidocaine 2 % viscous 1:1:1 (FIRST-MOUT HWASH BLM) oral suspension 15 mL 2019-09 03:30: 00 07-02 03:30 :00 No 15mL 15 mL, Oral, ONCE, 1 dose, 07/01/20 at 2230, VASILIY [facility] sodium chloride (NS) injection 5 mL 2019-09 03:00: 48 Yes 5mL 5 mL, Intravenou s, PRN, Starting 07/01/20 at 2200, Until Discontinu ed, Routine, IV line flushing [facility] sucralfate 1 gram tablet 2019-09 00:00: 00 07-16 05:59 :00 No [id number] 1g Take 1 tablet by mouth before meals and at bedtime for 14 days. [facility] lisinopril 10 mg tablet 04-12 00:00: 00 No 1mg amlodipine 10 mg tablet 04-12 00:00: 00 No 1mg No known medications No [facility] Immunizations Ordered Immunization Name Filled Immunization Name Date Status Comments Source SARS-COV-2 COVID-19 PFIZER VACCINE 2021-05-07 00:00:00 Completed [facility] SARS-COV-2 COVID-19 PFIZER VACCINE 2021-05-07 00:00:00 Completed [facility] SARS-COV-2 COVID-19 PFIZER VACCINE 2021-05-07 00:00:00 Completed [facility] SARS-COV-2 COVID-19 PFIZER VACCINE 2021-05-07 00:00:00 Completed [facility] SARS-COV-2 COVID-19 PFIZER VACCINE 2021-05-07 00:00:00 Completed [facility] SARS-COV-2 COVID-19 PFIZER VACCINE 2021-05-07 00:00:00 Completed [facility] SARS-COV-2 COVID-19 PFIZER VACCINE 2021-05-07 00:00:00 Completed [facility] SARS-COV-2 COVID-19 PFIZER VACCINE 2021-05-07 00:00:00 Completed [facility] SARS-COV-2 COVID-19 PFIZER VACCINE 2021-05-07 00:00:00 Completed [facility] SARS-COV-2 COVID-19 PFIZER VACCINE 2021-05-07 00:00:00 Completed [facility] SARS-COV-2 COVID-19 PFIZER VACCINE 2021-05-07 00:00:00 Completed [facility] SARS-COV-2 COVID-19 PFIZER VACCINE 2021-05-07 00:00:00 Completed [facility] SARS-COV-2 COVID-19 PFIZER VACCINE 2021-05-07 00:00:00 Completed [facility] SARS-COV-2 COVID-19 PFIZER VACCINE 2021-05-07 00:00:00 Completed [facility] SARS-COV-2 COVID-19 PFIZER VACCINE 2021-05-07 00:00:00 Completed [facility] SARS-COV-2 COVID-19 PFIZER VACCINE 2021-05-07 00:00:00 Completed [facility] SARS-COV-2 COVID-19 PFIZER VACCINE 2021-05-07 00:00:00 Completed [facility] SARS-COV-2 COVID-19 PFIZER VACCINE 2021-05-07 00:00:00 Completed [facility] SARS-COV-2 COVID-19 PFIZER VACCINE 2021-05-07 00:00:00 Completed [facility] SARS-COV-2 COVID-19 PFIZER VACCINE 2021-05-07 00:00:00 Completed [facility] SARS-COV-2 COVID-19 PFIZER VACCINE 2021-05-07 00:00:00 Completed [facility] SARS-COV-2 COVID-19 PFIZER VACCINE 2021-05-07 00:00:00 Completed [facility] SARS-COV-2 COVID-19 PFIZER VACCINE 2021-05-07 00:00:00 Completed [facility] SARS-COV-2 COVID-19 PFIZER VACCINE 2021-05-07 00:00:00 Completed [facility] SARS-COV-2 COVID-19 PFIZER VACCINE 2021-05-07 00:00:00 Completed [facility] SARS-COV-2 COVID-19 PFIZER VACCINE Unknown Completed [facility] SARS-COV-2 COVID-19 PFIZER VACCINE Unknown Completed [facility] SARS-COV-2 COVID-19 PFIZER VACCINE Unknown Completed [facility] SARS-COV-2 COVID-19 PFIZER VACCINE Unknown Completed [facility] SARS-COV-2 COVID-19 PFIZER VACCINE Unknown Completed [facility] SARS-COV-2 COVID-19 PFIZER VACCINE Unknown Completed [facility] SARS-COV-2 COVID-19 PFIZER VACCINE Unknown Completed [facility] SARS-COV-2 COVID-19 PFIZER VACCINE Unknown Completed [facility] SARS-COV-2 COVID-19 PFIZER VACCINE Unknown Completed [facility] SARS-COV-2 COVID-19 PFIZER VACCINE Unknown Completed [facility] SARS-COV-2 COVID-19 PFIZER VACCINE Unknown Completed [facility] SARS-COV-2 COVID-19 PFIZER VACCINE Unknown Completed [facility] SARS-COV-2 COVID-19 PFIZER VACCINE Unknown Completed [facility] SARS-COV-2 COVID-19 PFIZER VACCINE Unknown Completed [facility] SARS-COV-2 COVID-19 PFIZER VACCINE Unknown Completed [facility] SARS-COV-2 COVID-19 PFIZER VACCINE Unknown Completed [facility] SARS-COV-2 COVID-19 PFIZER VACCINE Unknown Completed [facility] SARS-COV-2 COVID-19 PFIZER VACCINE Unknown Completed [facility] SARS-COV-2 COVID-19 PFIZER VACCINE Unknown Completed [facility] SARS-COV-2 COVID-19 PFIZER VACCINE Unknown Completed [facility] SARS-COV-2 COVID-19 PFIZER VACCINE Unknown Completed [facility] SARS-COV-2 COVID-19 PFIZER VACCINE Unknown Completed [facility] Vital Signs Vital Name Observation Time Observation Value Comments S ource Systolic blood pressure 2024-04-08 21:13:00 143 mm[Hg] Luz Maria walden - External Diastolic blood pressure 2024-04-08 21:13:00 87 mm[Hg] Luz Maria walden - External Heart rate 2024-04-08 21:13:00 79 /min Sallie Ng - External Body temperature 2024-04-08 21:13:00 36.78 Cindi Luz Maria Ng - External Respiratory rate 2024-04-08 21:13:00 16 /min Luz Maria Ng - External Body height 2024-04-08 21:13:00 195.6 cm Kelsi ey Seybold - External Body weight 2024-04-08 21:13:00 118.389 kg Kelsi ey Seybold - External BMI 2024-04-08 21:13:00 30.95 kg/m2 Kelsi ey Seybold - External Oxygen saturation in Arterial blood by Pulse oximetry 2024-04-08 21:13:00 100 /min Luz Maria Ingramybo ld - External Systolic blood pressure 2024-04-02 17:52:00 140 mm[Hg[facility] Di[facility] blood [facility] 2024-04-02 17:52:00 93 mm[Hg] [facility] Heart rate 2024-04-02 17:52:00 80 /min [facility] Body temperature 2024-04-02 17:52:00 37 Cindi [facility] Respiratory rate 2024-04-02 17:52:00 20 /min [facility] Oxygen saturation in Arterial blood by Pulse oximetry 2024-04-02 17:52:00 98 /min [facility] Body height 2024-04-02 13:32:00 195.6 cm [facility] Body weight 2024-04-02 13:32:00 120.3 kg [facility] BMI 2024-04-02 13:32:00 31.45 kg/m2 [facility] Systolic blood pressure 2024-03-30 13:10:00 119 mm[Hg] Luz Maria ybo ld - External Diastolic blood pressure 2024-03-30 13:10:00 77 mm[Hg] Luz Maria Seybo ld - External Heart rate 2024-03-30 13:10:00 83 /min Kelse y Seybold - External Body temperature 2024-03-30 13:10:00 36.67 Cindi Luz Maria Seybold - External Respiratory rate 2024-03-30 13:10:00 18 /min Luz Maria Seybold - External Body height 2024-03-30 13:10:00 195.6 cm Kelsi ey Seybold - External Body weight 2024-03-30 13:10:00 115.667 kg Kelsi ey Seybold - External BMI 2024-03-30 13:10:00 30.24 kg/m2 Kelsi ey Seybold - External Oxygen saturation in Arterial blood by Pulse oximetry 2024-03-30 13:10:00 100 /min Luz Maria Ingramybo ld - External Systolic blood pressure 2024-02-21 04:48:00 132 mm[facility] Di[facility] blood [facility] 2024-02-21 04:48:00 82 mm[Hg] [facility] Heart rate 2024-02-21 04:48:00 74 /min [facility] Body temperature 2024-02-21 04:48:00 36.72 Cindi [facility] Respiratory rate 2024-02-21 04:48:00 15 /min [facility] Oxygen saturation in Arterial blood by Pulse oximetry 2024-02-21 04:48:00 98 /min [facility] Body height 2024-02-21 02:43:00 195.6 cm [facility] Body weight 2024-02-21 02:43:00 115.667 kg [facility] BMI 2024-02-21 02:43:00 30.24 kg/m2 [facility] Systolic blood pressure 2023-12-17 20:32:00 112 mm[Hg] Luz Maria Seybo ld - External Diastolic blood pressure 2023-12-17 20:32:00 80 mm[Hg] Luz Maria Seybo ld - External Heart rate 2023-12-17 20:07:00 96 /min Kelse y Seybold - External Body temperature 2023-12-17 20:07:00 36.44 Cindi Luz Maria Seybold - External Respiratory rate 2023-12-17 20:07:00 15 /min Luz Maria Seybold - External Body height 2023-12-17 20:07:00 195.6 cm Kelsi ey Seybold - External Body weight 2023-12-17 20:07:00 125.193 kg Kelsi ey Seybold - External BMI 2023-12-17 20:07:00 32.73 kg/m2 Kelsi ey Seybold - External Oxygen saturation in Arterial blood by Pulse oximetry 2023-12-17 20:07:00 100 /min Luz Maria Seybo ld - External Systolic blood pressure 2023-12-10 03:57:00 157 mm[Hg] [facility] Di[facility] blood pressure 2023-12-10 03:57:00 83 mm[Hg] [facility] Heart rate 2023-12-10 03:57:00 70 /min [facility] Respiratory rate 2023-12-10 03:57:00 16 /min [facility] Oxygen saturation in Arterial blood by Pulse oximetry 2023-12-10 03:57:00 99 /min [facility] Body temperature 2023-12-10 01:12:00 36.83 Cindi [facility] Body height 2023-12-10 01:12:00 195.6 cm [facility] Body weight 2023-12-10 01:12:00 122.471 kg [facility] BMI 2023-12-10 01:12:00 32.02 kg/m2 [facility] Systolic blood pressure 2023-10-06 20:55:00 130 mm[Hg] Luz Maria Ingramybo ld - External Diastolic blood pressure 2023-10-06 20:55:00 80 mm[Hg] Luz Maria Ingramybo ld - External Heart rate 2023-10-06 20:14:00 98 /min Kel y Seybold - External Body temperature 2023-10-06 20:14:00 36.56 Cindi Luz Maria Ingramybold - External Respiratory rate 2023-10-06 20:14:00 18 /min Luz Maria Ingramybold - External Body height 2023-10-06 20:14:00 195.6 cm Kelsi hampton Seybold - External Body weight 2023-10-06 20:14:00 127.007 kg Kelsi ey Seybold - External BMI 2023-10-06 20:14:00 33.20 kg/m2 Kelsi ey Seybold - External Oxygen saturation in Arterial blood by Pulse oximetry 2023-10-06 20:14:00 94 /min Luz Maria Ingramybo ld - External Systolic blood pressure 2023-08-04 05:38:00 164 mm[Hg] [facility] Di[facility] blood pressure 2023-08-04 05:38:00 99 mm[Hg] [facility] Heart rate 2023-08-04 05:38:00 70 /min [facility] Body temperature 2023-08-04 05:38:00 37 Cindi [facility] Respiratory rate 2023-08-04 05:38:00 18 /min [facility] Oxygen saturation in Arterial blood by Pulse oximetry 2023-08-04 05:38:00 98 /min [facility] Body height 2023-08-04 02:22:00 195.6 cm [facility] Body weight 2023-08-04 02:22:00 118.389 kg [facility] BMI 2023-08-04 02:22:00 30.95 kg/m2 [facility] Systolic blood pressure 2023-07-25 18:00:00 146 mm[Hg] [facility] Diastolic blood pressure 2023-07-25 18:00:00 90 mm[Hg] [facility] Heart rate 2023-07-25 18:00:00 75 /min [facility] Respiratory rate 2023-07-25 18:00:00 18 /min [facility] Oxygen saturation in Arterial blood by Pulse oximetry 2023-07-25 18:00:00 95 /min [facility] Body temperature 2023-07-25 15:57:00 37.61 Cindi [facility] Body height 2023-07-25 15:57:00 195.6 cm [facility] Body weight 2023-07-25 15:57:00 118.842 kg [facility] BMI 2023-07-25 15:57:00 31.07 kg/m2 [facility] Systolic blood pressure 2023-07-24 21:05:00 140 mm[Hg] [facility] Diastolic blood pressure 2023-07-24 21:05:00 94 mm[Hg] [facility] Heart rate 2023-07-24 21:05:00 71 /min [facility] Body temperature 2023-07-24 21:05:00 36.67 Cindi [facility] Respiratory rate 2023-07-24 21:05:00 18 /min [facility] Oxygen saturation in Arterial blood by Pulse oximetry 2023-07-24 21:05:00 97 /min [facility] Body weight 2023-07-24 18:35:00 115.667 kg [facility] BMI 2023-07-24 18:35:00 30.24 kg/m2 [facility] Systolic blood pressure 2023-07-12 03:30:00 156 mm[Hg] [facility] Diastolic blood pressure 2023-07-12 03:30:00 101 mm[Hg] [facility] Heart rate 2023-07-12 03:30:00 90 /min [facility] Respiratory rate 2023-07-12 03:30:00 20 /min [facility] Oxygen saturation in Arterial blood by Pulse oximetry 2023-07-12 03:30:00 94 /min [facility] Body temperature 2023-07-12 01:57:00 36.67 Cindi [facility] Body weight 2023-07-12 01:57:00 115.667 kg [facility] BMI 2023-07-12 01:57:00 30.24 kg/m2 [facility] Systolic blood pressure 2023-07-10 13:34:00 140 mm[Hg] [facility] Diastolic blood pressure 2023-07-10 13:34:00 95 mm[Hg] [facility] Heart rate 2023-07-10 13:34:00 76 /min [facility] Body temperature 2023-07-10 13:34:00 35.94 Cindi [facility] Body height 2023-07-10 13:34:00 195.6 cm [facility] Body weight 2023-07-10 13:34:00 118.298 kg [facility] BMI 2023-07-10 13:34:00 30.93 kg/m2 [facility] Oxygen saturation in Arterial blood by Pulse oximetry 2023-07-10 13:34:00 97 /min [facility] Systolic blood pressure 2023-07-08 13:43:00 140 mm[Hg] Luz Maria Seybo ld - External Diastolic blood pressure 2023-07-08 13:43:00 100 mm[Hg] Luz Maria Ingramybo ld - External Heart rate 2023-07-08 13:43:00 68 /min Kelse y Seybold - External Body temperature 2023-07-08 13:43:00 36.67 Cindi Luz Maria Seybold - External Respiratory rate 2023-07-08 13:43:00 16 /min Luz Maria Ingramybold - External Body height 2023-07-08 13:43:00 195.6 cm Kelsi ey Seybold - External Body weight 2023-07-08 13:43:00 116.121 kg Kelsi ey Seybold - External BMI 2023-07-08 13:43:00 30.36 kg/m2 Klesi ey Seybold - External Systolic blood pressure 2023-07-03 12:45:10 149 mm[Hg] [facility] Di[facility] blood pressure 2023-07-03 12:45:10 88 mm[Hg] [facility] Heart rate 2023-07-03 12:45:10 88 /min [facility] Respiratory rate 2023-07-03 12:45:10 16 /min [facility] Oxygen saturation in Arterial blood by Pulse oximetry 2023-07-03 12:45:10 97 /min [facility] Body temperature 2023-07-03 09:47:00 36.78 Cindi [facility] Body height 2023-07-03 09:47:00 195.6 cm [facility] Body weight 2023-07-03 09:47:00 113.853 kg [facility] BMI 2023-07-03 09:47:00 29.76 kg/m2 [facility] Systolic blood pressure 2023-05-20 20:08:00 132 mm[Hg] Luz Maria Ingramybo ld - External Diastolic blood pressure 2023-05-20 20:08:00 84 mm[Hg] Luz Maria Ingramybo ld - External Heart rate 2023-05-20 20:08:00 76 /min Kelse y Seybold - External Body temperature 2023-05-20 20:08:00 37 Cindi Luz Maria Seybold - External Respiratory rate 2023-05-20 20:08:00 16 /min Luz Maria Ng - External Body height 2023-05-20 20:08:00 195.6 cm Kelsi Ng - External Body weight 2023-05-20 20:08:00 116.121 kg Kelsi Ng - External BMI 2023-05-20 20:08:00 30.36 kg/m2 Kelsi Ng - External Systolic blood pressure 2023-05-08 03:30:00 133 mm[Hg] [facility] Di[facility] blood pressure 2023-05-08 03:30:00 87 mm[Hg] [facility] Heart rate 2023-05-08 03:30:00 70 /min [facility] Respiratory rate 2023-05-08 03:30:00 18 /min [facility] Oxygen saturation in Arterial blood by Pulse oximetry 2023-05-08 03:30:00 97 /min [facility] Body temperature 2023-05-07 22:36:00 36.72 Cindi [facility] Body weight 2023-05-07 22:36:00 113.853 kg [facility] BMI 2023-05-07 22:36:00 30.55 kg/m2 [facility] Systolic blood pressure 2023-05-02 05:00:00 134 mm[Hg] [facility] Diastolic blood pressure 2023-05-02 05:00:00 85 mm[Hg] [facility] Heart rate 2023-05-02 05:00:00 72 /min [facility] Oxygen saturation in Arterial blood by Pulse oximetry 2023-05-02 05:00:00 98 /min [facility] Body temperature 2023-05-02 02:28:00 37.28 Cindi [facility] Respiratory rate 2023-05-02 02:28:00 20 /min [facility] Body height 2023-05-02 02:28:00 193 cm [facility] Body weight 2023-05-02 02:28:00 113.399 kg [facility] BMI 2023-05-02 02:28:00 30.43 kg/m2 [facility] Systolic blood pressure 2023-04-22 18:02:36 130 mm[Hg] [facility] Diastolic blood pressure 2023-04-22 18:02:36 80 mm[Hg] [facility] Heart rate 2023-04-22 18:02:36 68 /min [facility] Body temperature 2023-04-22 18:02:36 36.78 Cindi [facility] Respiratory rate 2023-04-22 18:02:36 17 /min [facility] Oxygen saturation in Arterial blood by Pulse oximetry 2023-04-22 18:02:36 96 /min [facility] Body height 2023-04-22 08:58:00 195.6 cm [facility] Body weight 2023-04-22 08:58:00 113.944 kg [facility] BMI 2023-04-22 08:58:00 29.79 kg/m2 [facility] Systolic blood pressure 2023-04-16 13:30:00 142 mm[Hg] [facility] Diastolic blood pressure 2023-04-16 13:30:00 98 mm[Hg] [facility] Heart rate 2023-04-16 13:30:00 65 /min [facility] Respiratory rate 2023-04-16 13:30:00 17 /min [facility] Oxygen saturation in Arterial blood by Pulse oximetry 2023-04-16 13:30:00 98 /min [facility] Systolic blood pressure 2023-04-16 12:32:00 155 mm[Hg] [facility] Diastolic blood pressure 2023-04-16 12:32:00 108 mm[Hg] [facility] Heart rate 2023-04-16 12:32:00 61 /min [facility] Respiratory rate 2023-04-16 12:32:00 18 /min [facility] Oxygen saturation in Arterial blood by Pulse oximetry 2023-04-16 12:32:00 97 /min [facility] Body temperature 2023-04-16 12:09:00 36.72 Cindi [facility] Body weight 2023-04-16 12:09:00 118.842 kg [facility] BMI 2023-04-16 12:09:00 31.89 kg/m2 [facility] Systolic blood pressure 2023-04-01 08:00:00 130 mm[Hg] [facility] Diastolic blood pressure 2023-04-01 08:00:00 75 mm[Hg] [facility] Heart rate 2023-04-01 08:00:00 75 /min [facility] Respiratory rate 2023-04-01 08:00:00 19 /min [facility] Oxygen saturation in Arterial blood by Pulse oximetry 2023-04-01 08:00:00 96 /min [facility] Body temperature 2023-04-01 05:02:00 36.28 Cindi [facility] Body height 2023-04-01 05:02:00 193 cm [facility] Body weight 2023-04-01 05:02:00 111.585 kg [facility] BMI 2023-04-01 05:02:00 29.94 kg/m2 [facility] Systolic blood pressure 2023-02-13 21:00:00 157 mm[Hg] [facility] Diastolic blood pressure 2023-02-13 21:00:00 89 mm[Hg] [facility] Heart rate 2023-02-13 21:00:00 102 /min [facility] Body temperature 2023-02-13 21:00:00 37.89 Cindi [facility] Respiratory rate 2023-02-13 21:00:00 16 /min [facility] Body weight 2023-02-13 21:00:00 124.286 kg [facility] BMI 2023-02-13 21:00:00 33.35 kg/m2 [facility] Oxygen saturation in Arterial blood by Pulse oximetry 2023-02-13 21:00:00 97 /min [facility] Systolic blood pressure 2022-12-09 06:33:00 152 mm[Hg] [facility] Diastolic blood pressure 2022-12-09 06:33:00 96 mm[Hg] [facility] Heart rate 2022-12-09 06:33:00 60 /min [facility] Respiratory rate 2022-12-09 06:33:00 11 /min [facility] Oxygen saturation in Arterial blood by Pulse oximetry 2022-12-09 06:33:00 96 /min [facility] Body temperature 2022-12-09 04:51:00 37 Cindi [facility] Body height 2022-12-09 04:51:00 193 cm [facility] Body weight 2022-12-09 04:51:00 116.121 kg [facility] BMI 2022-12-09 04:51:00 31.16 kg/m2 [facility] Systolic blood pressure 2022-11-25 04:51:00 148 mm[Hg] [facility] Diastolic blood pressure 2022-11-25 04:51:00 96 mm[Hg] [facility] Heart rate 2022-11-25 04:51:00 71 /min [facility] Body temperature 2022-11-25 04:51:00 37 Cindi [facility] Respiratory rate 2022-11-25 04:51:00 16 /min [facility] Body height 2022-11-25 04:51:00 193 cm [facility] Body weight 2022-11-25 04:51:00 113.399 kg [facility] BMI 2022-11-25 04:51:00 30.43 kg/m2 [facility] Oxygen saturation in Arterial blood by Pulse oximetry 2022-11-25 04:51:00 97 /min [facility] Systolic blood pressure 2022-10-12 21:48:00 152 mm[Hg] [facility] Diastolic blood pressure 2022-10-12 21:48:00 82 mm[Hg] [facility] Heart rate 2022-10-12 21:48:00 70 /min [facility] Body temperature 2022-10-12 21:48:00 36.89 Cindi [facility] Respiratory rate 2022-10-12 21:48:00 18 /min [facility] Oxygen saturation in Arterial blood by Pulse oximetry 2022-10-12 21:48:00 94 /min [facility] Body height 2022-10-11 17:50:00 193 cm [facility] Body weight 2022-10-11 17:50:00 113.399 kg [facility] BMI 2022-10-11 17:50:00 30.43 kg/m2 [facility] Systolic blood pressure 2022-10-09 07:25:23 138 mm[Hg] [facility] Diastolic blood pressure 2022-10-09 07:25:23 86 mm[Hg] [facility] Heart rate 2022-10-09 07:25:23 73 /min [facility] Respiratory rate 2022-10-09 07:25:23 20 /min [facility] Oxygen saturation in Arterial blood by Pulse oximetry 2022-10-09 07:25:23 98 /min [facility] Body temperature 2022-10-09 04:12:00 37.28 Cindi [facility] Body height 2022-10-09 04:12:00 193 cm [facility] Body weight 2022-10-09 04:12:00 113.399 kg [facility] BMI 2022-10-09 04:12:00 30.43 kg/m2 [facility] Systolic blood pressure 2022-08-20 14:40:00 147 mm[Hg] [facility] Diastolic blood pressure 2022-08-20 14:40:00 95 mm[Hg] [facility] Heart rate 2022-08-20 14:40:00 75 /min [facility] Body temperature 2022-08-20 14:40:00 36.89 Cindi [facility] Respiratory rate 2022-08-20 14:40:00 20 /min [facility] Body height 2022-08-20 14:40:00 190.5 cm [facility] Body weight 2022-08-20 14:40:00 115.667 kg [facility] BMI 2022-08-20 14:40:00 31.87 kg/m2 [facility] Oxygen saturation in Arterial blood by Pulse oximetry 2022-08-20 14:40:00 98 /min [facility] height 2022-07-11 09:30:00 77 [in_i] Commo n [facility] weight 2022-07-11 09:30:00 253.6 [lb_av] Co mmon [facility] temperature 2022-07-11 09:30:00 98.3 [degF] Com mon [facility] bmi 2022-07-11 09:30:00 30.07 kg/m2 [facility] oximetry 2022-07-11 09:30:00 99 % [facility] respiratory rate 2022-07-11 09:30:00 18 /min [facility] blood pressure systolic 2022-07-11 09:30:00 135 mm[Hg] [facility] blood pressure diastolic 2022-07-11 09:30:00 81 mm[Hg] [facility] Systolic blood pressure 2022-06-09 15:00:00 141 mm[Hg] [facility] Di[facility] blood pressure 2022-06-09 15:00:00 94 mm[Hg] [facility] Heart rate 2022-06-09 15:00:00 59 /min [facility] 2022-06-09 15:00:00 16 /min [facility] Oxygen saturation in Arterial blood by Pulse oximetry 2022-06-09 15:00:00 97 /min [facility] Body temperature 2022-06-09 11:56:00 36.17 Cindi [facility] Body height 2022-06-09 11:56:00 195.6 cm [facility] Body weight 2022-06-09 11:56:00 127.007 kg [facility] BMI 2022-06-09 11:56:00 33.20 kg/m2 [facility] Systolic blood pressure 2021-11-01 17:12:00 152 mm[Hg] [facility] Diastolic blood pressure 2021-11-01 17:12:00 89 mm[Hg] [facility] Heart rate 2021-11-01 17:12:00 72 /min [facility] Body temperature 2021-11-01 17:12:00 36.17 Cindi [facility] Respiratory rate 2021-11-01 17:12:00 18 /min [facility] Oxygen saturation in Arterial blood by Pulse oximetry 2021-11-01 17:12:00 94 /min [facility] Body height 2021-10-30 23:19:00 195.6 cm [facility] Body weight 2021-10-30 23:19:00 116.983 kg [facility] BMI 2021-10-30 23:19:00 30.58 kg/m2 [facility] Systolic blood pressure 2021-05-24 06:00:00 135 mm[Hg] [facility] Di[facility] blood pressure 2021-05-24 06:00:00 97 mm[Hg] [facility] Heart rate 2021-05-24 06:00:00 88 /min [facility] Respiratory rate 2021-05-24 06:00:00 21 /min [facility] Oxygen saturation in Arterial blood by Pulse oximetry 2021-05-24 06:00:00 94 /min [facility] Body temperature 2021-05-24 01:47:00 37.28 Cindi [facility] Body height 2021-05-24 01:47:00 195.6 cm [facility] Body weight 2021-05-24 01:47:00 127.461 kg [facility] BMI 2021-05-24 01:47:00 33.32 kg/m2 [facility] Systolic blood pressure 2021-05-22 23:36:00 154 mm[Hg] [facility] Diastolic blood pressure 2021-05-22 23:36:00 112 mm[Hg] [facility] Heart rate 2021-05-22 23:36:00 97 /min [facility] Body temperature 2021-05-22 23:36:00 36 Cindi [facility] Respiratory rate 2021-05-22 23:36:00 19 /min [facility] Body height 2021-05-22 23:36:00 195.6 cm [facility] Body weight 2021-05-22 23:36:00 127.007 kg [facility] BMI 2021-05-22 23:36:00 33.20 kg/m2 [facility] Oxygen saturation in Arterial blood by Pulse oximetry 2021-05-22 23:36:00 96 /min [facility] Systolic blood pressure 2021-05-02 00:01:00 157 mm[Hg] [facility] Diastolic blood pressure 2021-05-02 00:01:00 93 mm[Hg] [facility] Heart rate 2021-05-02 00:01:00 84 /min [facility] Body temperature 2021-05-02 00:01:00 36.56 Cindi [facility] Respiratory rate 2021-05-02 00:01:00 18 /min [facility] Body weight 2021-05-02 00:01:00 126.554 kg [facility] BMI 2021-05-02 00:01:00 33.08 kg/m2 [facility] Oxygen saturation in Arterial blood by Pulse oximetry 2021-05-02 00:01:00 97 /min [facility] Systolic blood pressure 2021-04-02 01:01:00 144 mm[Hg] [facility] Diastolic blood pressure 2021-04-02 01:01:00 94 mm[Hg] [facility] Heart rate 2021-04-02 01:01:00 89 /min [facility] Body temperature 2021-04-02 01:01:00 37.06 Cindi [facility] Respiratory rate 2021-04-02 01:01:00 18 /min [facility] Body weight 2021-04-02 01:01:00 129.729 kg [facility] BMI 2021-04-02 01:01:00 33.91 kg/m2 [facility] Oxygen saturation in Arterial blood by Pulse oximetry 2021-04-02 01:01:00 100 /min [facility] Systolic blood pressure 2021-04-02 01:01:00 144 mm[Hg] [facility] Diastolic blood pressure 2021-04-02 01:01:00 94 mm[Hg] [facility] Heart rate 2021-04-02 01:01:00 89 /min [facility] Body temperature 2021-04-02 01:01:00 37.06 Cindi [facility] Respiratory rate 2021-04-02 01:01:00 18 /min [facility] Body weight 2021-04-02 01:01:00 129.729 kg [facility] BMI 2021-04-02 01:01:00 33.91 kg/m2 [facility] Oxygen saturation in Arterial blood by Pulse oximetry 2021-04-02 01:01:00 100 /min [facility] Systolic blood pressure 2021-03-18 03:16:13 140 mm[Hg] [facility] Di[facility] blood pressure 2021-03-18 03:16:13 80 mm[Hg] [facility] Heart rate 2021-03-18 03:16:13 80 /min [facility] Body temperature 2021-03-18 03:16:13 36.67 Cindi [facility] Respiratory rate 2021-03-18 03:16:13 19 /min [facility] Oxygen saturation in Arterial blood by Pulse oximetry 2021-03-18 03:16:13 99 /min [facility] Body weight 2021-03-18 01:02:00 129.729 kg [facility] BMI 2021-03-18 01:02:00 33.91 kg/m2 [facility] Systolic blood pressure 2021-03-18 03:16:13 140 mm[Hg] [facility] Diastolic blood pressure 2021-03-18 03:16:13 80 mm[Hg] [facility] Heart rate 2021-03-18 03:16:13 80 /min [facility] Body temperature 2021-03-18 03:16:13 36.67 Cindi [facility] Respiratory rate 2021-03-18 03:16:13 19 /min [facility] Oxygen saturation in Arterial blood by Pulse oximetry 2021-03-18 03:16:13 99 /min [facility] Body weight 2021-03-18 01:02:00 129.729 kg [facility] BMI 2021-03-18 01:02:00 33.91 kg/m2 [facility] Oxygen saturation in Arterial blood by Pulse oximetry 2020-11-15 04:31:00 97 /min [facility] Systolic blood pressure 2020-11-15 03:25:00 173 mm[Hg] [facility] Di[facility] blood pressure 2020-11-15 03:25:00 97 mm[Hg] [facility] Heart rate 2020-11-15 03:25:00 84 /min [facility] Body temperature 2020-11-15 03:25:00 36.67 Cindi [facility] Respiratory rate 2020-11-15 03:25:00 20 /min [facility] Body weight 2020-11-15 03:25:00 132.45 kg [facility] BMI 2020-11-15 03:25:00 34.63 kg/m2 [facility] Oxygen saturation in Arterial blood by Pulse oximetry 2020-11-15 04:31:00 97 /min [facility] Systolic blood pressure 2020-11-15 03:25:00 173 mm[Hg] [facility] Di[facility] blood pressure 2020-11-15 03:25:00 97 mm[Hg] [facility] Heart rate 2020-11-15 03:25:00 84 /min [facility] Body temperature 2020-11-15 03:25:00 36.67 Cindi [facility] Respiratory rate 2020-11-15 03:25:00 20 /min [facility] Body weight 2020-11-15 03:25:00 132.45 kg [facility] BMI 2020-11-15 03:25:00 34.63 kg/m2 [facility] Systolic blood pressure 2020-09-30 16:30:00 121 mm[facility]Hg[facility] Diastolic blood pressure 2020-09-30 16:30:00 66 mm[Hg[facility] Heart rate 2020-09-30 16:30:00 72 /min [facility] Respiratory rate 2020-09-30 16:30:00 19 /min [facility] Oxygen saturation in Arterial blood by Pulse oximetry 2020-09-30 16:30:00 94 /min [facility] Body weight 2020-09-30 14:20:00 136.079 kg [facility] BMI 2020-09-30 14:20:00 35.57 kg/m2 [facility] Body temperature 2020-09-30 14:10:00 37.06 Cindi [facility] Systolic blood pressure 2020-09-30 16:30:00 121 mm[Hg] [facility] Diastolic blood pressure 2020-09-30 16:30:00 66 mm[Hg] [facility] Heart rate 2020-09-30 16:30:00 72 /min [facility] Respiratory rate 2020-09-30 16:30:00 19 /min [facility] Oxygen saturation in Arterial blood by Pulse oximetry 2020-09-30 16:30:00 94 /min [facility] Body weight 2020-09-30 14:20:00 136.079 kg [facility] BMI 2020-09-30 14:20:00 35.57 kg/m2 [facility] Body temperature 2020-09-30 14:10:00 37.06 Cindi [facility] Systolic blood pressure 2020-07-02 04:00:00 132 mm[Hg] [facility] Diastolic blood pressure 2020-07-02 04:00:00 84 mm[Hg] [facility] Heart rate 2020-07-02 04:00:00 89 /min [facility] Oxygen saturation in Arterial blood by Pulse oximetry 2020-07-02 04:00:00 95 /min [facility] Body temperature 2020-07-02 02:53:00 36.94 Cindi [facility] Respiratory rate 2020-07-02 02:53:00 18 /min [facility] Body height 2020-07-02 02:53:00 195.6 cm [facility] Body weight 2020-07-02 02:53:00 136.079 kg [facility] BMI 2020-07-02 02:53:00 35.57 kg/m2 [facility] Systolic blood pressure 2020-07-02 04:00:00 132 mm[Hg] [facility] Diastolic blood pressure 2020-07-02 04:00:00 84 mm[Hg] [facility] Heart rate 2020-07-02 04:00:00 89 /min [facility] Oxygen saturation in Arterial blood by Pulse oximetry 2020-07-02 04:00:00 95 /min [facility] Body temperature 2020-07-02 02:53:00 36.94 Cindi [facility] Respiratory rate 2020-07-02 02:53:00 18 /min [facility] Body height 2020-07-02 02:53:00 195.6 cm [facility] Body weight 2020-07-02 02:53:00 136.079 kg [facility] BMI 2020-07-02 02:53:00 35.57 kg/m2 [facility] BP Systolic 2022-07-09 10:22:00 158 mm[Hg] BP Diastolic 2022-07-09 10:22:00 95 mm[Hg] Weight Measured 2022-07-09 10:22:00 261.40 pounds Height Measured 2022-07-09 10:22:00 77.00 inches Body Temperature 2022-07-09 10:22:00 98.00 degrees Heart Rate 2022-07-09 10:22:00 60.00 /min Respiratory Rate 2022-07-09 10:22:00 16.00 /min Weight Measured 2021-11-20 17:16:00 276.40 pounds Height Measured 2021-11-20 17:16:00 77.00 inches Body Temperature 2021-11-20 17:16:00 98.30 degrees Heart Rate 2021-11-20 17:16:00 86.00 /min Respiratory Rate 2021-11-20 17:16:00 17.00 /min BP Systolic 2021-11-20 17:16:00 144 mm[Hg] BP Diastolic 2021-11-20 17:16:00 89 mm[Hg] BP Systolic 2021-10-17 16:20:00 157 mm[Hg] BP [...] Clinician Source CT ABDOMEN PELVIS W CONTRAST 2024-04-02 14:49:11 Trevor Taylor Tiffanie [facility] URINALYSIS 2024-04-02 14:18:00 Trevor Taylor [facility] LIPASE 2024-04-02 14:12:00 Trevor Taylor [facility] MAGNESIUM 2024-04-02 14:12:00 Trevor Taylor [facility] TROPONIN I 2024-04-02 14:12:00 Trevor Taylor [facility] COMP. METABOLIC PANEL ([id number]) 2024-04-02 14:12:00 Trevor Taylor [facility] LIPID PANEL ([id number])(TOTAL CHOLESTEROL, TRIGLYCERIDES, HDL) 2024-04-02 14:12:00 Trevor Taylor Tiffanie [facility] CBC WITH DIFF 2024-04-02 14:12:00 Trevor Taylor [facility] LIPASE 2024-02-21 03:08:00 Leti Rivas [facility] COMP. METABOLIC PANEL ([id number]) 2024-02-21 03:08:00 Leti Rivas [facility] CBC WITH DIFF 2024-02-21 03:08:00 Leti Rivas [facility] URINALYSIS 2024-02-21 03:08:00 Leti Rivas [facility] CT ABDOMEN PELVIS W CONTRAST 2023-12-10 02:36:24 Abraham Orantes [facility] COMP. METABOLIC PANEL ([id number]) 2023-12-10 02:05:00 Abraham Orantes [facility] CBC WITH DIFF 2023-12-10 02:05:00 Abraham Orantes [facility] URINALYSIS 2023-12-10 02:05:00 Abraham Orantes [facility] CT ABDOMEN PELVIS WO CONTRAST 2023-08-04 04:23:15 Abraham Orantes [facility] BASIC METABOLIC PANEL (NA, K, CL, CO2, GLUCOSE, BUN, CREATININE, CA) 2023-08-04 02:57:00 Abraham Orantes [facility] CBC WITH DIFF 2023-08-04 02:57:00 Abraham Orantes [facility] URINALYSIS 2023-08-04 02:57:00 Abraham Orantes [facility] NOTICE OF PRIVACY PRACTICES 2023-08-04 02:16:09 Doctor Unassigned, [place] [facility] CONSENT/REFUSAL FOR DIAGNOSIS AND TREATMENT 2023-08-04 02:15:41 Doctor Unassigned, [place] [facility] LIPASE 2023-07-25 16:37:00 Trevor Taylor [facility] MAGNESIUM 2023-07-25 16:37:00 [facility] TROPONIN I 2023-07-25 16:37:00 Trevor [facility] COMP. METABOLIC PANEL ([id number]) 2023-07-25 16:37:00 Trevor Taylor [facility] CBC WITH DIFF 2023-07-25 16:37:00 Trevor Taylor [facility] URINALYSIS 2023-07-25 16:37:00 Trevor Taylor [facility] CONSENT/REFUSAL FOR DIAGNOSIS AND TREATMENT 2023-07-25 15:41:41 Doctor Unassigned, [place] [facility] US GALL BLADDER 2023-07-24 22:46:02 Johnathan Avila [facility] URINALYSIS 2023-07-24 20:10:00 Johnathan Avila [facility] EXTRA TUBE URINE CULTURE 2023-07-24 20:10:00 Ember Avila [facility] LIPASE 2023-07-24 20:09:00 Johnathan Avila [facility] COMP. METABOLIC PANEL ([id number]) 2023-07-24 20:09:00 Johnathan Avila [facility] LIPID PANEL ([id number])(TOTAL CHOLESTEROL, TRIGLYCERIDES, HDL) 2023-07-24 20:09:00 Johnathan Avila [facility] CBC WITH DIFF 2023-07-24 20:09:00 Johnathan Avila [facility] CONSENT/REFUSAL FOR DIAGNOSIS AND TREATMENT 2023-07-24 18:31:11 Doctor Unassigned, [place] [facility] XR CHEST 2 VW 2023-07-12 03:54:00 [facility] 2023-07-12 02:31:00 [facility] 2023-07-12 02:14:00 Norm Saleh [facility] COMP. METABOLIC PANEL ([id number]) 2023-07-12 02:14:00 Norm Saleh [facility] CBC WITH DIFF 2023-07-12 02:14:00 Norm Saleh [facility] COVID-19 (ID NOW RAPID TESTING) 2023-07-12 02:14:00 Norm Saleh [facility] CONSENT/REFUSAL FOR DIAGNOSIS AND TREATMENT 2023-07-12 01:47:09 Doctor Unassigned, [place] [facility] CONSENT FOR MEDICAL TREATMENT OF A MINOR 2023-07-10 05:01:00 Doctor Unassigned, [place] [facility] CT ABDOMEN PELVIS W CONTRAST 2023-07-03 10:43:57 Haresh Santamaria [facility] URINALYSIS 2023-07-03 10:23:00 LubnaerHaresh chan [facility] LIPASE 2023-07-03 10:11:00 Haresh Santamaria [facility] COMP. METABOLIC PANEL ([id number]) 2023-07-03 10:11:00 Haresh Santamaria [facility] CBC WITH DIFF 2023-07-03 10:11:00 Haresh Santamaria [facility] CONSENT/REFUSAL FOR DIAGNOSIS AND TREATMENT 2023-07-03 09:36:41 Doctor Unassigned, [place] [facility] CT ABDOMEN PELVIS W CONTRAST 2023-05-08 02:15:59 Riya Joseph Connie [facility] HB ABO GROUPING 2023-05-08 01:25:00 Elvin Joseph [facility] LIPASE 2023-05-08 01:19:00 Elvin Joseph Marie [facility] COMP. METABOLIC PANEL ([id number]) 2023-05-08 01:19:00 Riya Joseph Connie [facility] CBC WITH DIFF 2023-05-08 01:19:00 Elvin Joseph [facility] COVID-19 (ID NOW RAPID TESTING) 2023-05-08 01:19:00 Riya Joseph [facility] CONSENT/REFUSAL FOR DIAGNOSIS AND TREATMENT 2023-05-07 22:22:14 Doctor Unassigned, [place] [facility] LIPASE 2023-05-02 03:01:00 Aydin Matos [facility] COMP. METABOLIC PANEL ([id number]) 2023-05-02 03:01:00 Aydin Matos [facility] ETHANOL 2023-05-02 03:01:00 Aydin Matos [facility] CBC WITH DIFF 2023-05-02 03:01:00 Matos, Aydin [facility] URINALYSIS 2023-05-02 03:01:00 Aydin Matos [facility] URINE DRUG (IMMUNOASSAY) - COMPREHENSIVE DRUG SCREEN W/O REFLEX 2023-05-02 03:01:00 Aydin Matos [facility] CONSENT/REFUSAL FOR DIAGNOSIS AND TREATMENT 2023-05-02 02:28:20 Doctor Unassigned, [place] [facility] BASIC METABOLIC PANEL (NA, K, CL, CO2, GLUCOSE, BUN, CREATININE, CA) 2023-04-22 16:47:00 Natali Alexander [facility] LIPASE 2023-04-22 12:58:00 Natali Alexander Un [facility] BASIC METABOLIC PANEL (NA, K, CL, CO2, GLUCOSE, BUN, CREATININE, CA) 2023-04-22 12:58:[address] [facility] URINALYSIS 2023-04-22 11:44:00 Abraham Orantes [facility] CREATINE KINASE 2023-04-22 09:06:00 Natali Alexander [facility] LIPASE 2023-04-22 09:06:00 Natali Alexnader [facility] COMP. METABOLIC PANEL ([id number]) 2023-04-22 09:06:00 Abraham Orantes [facility] CBC WITH DIFF 2023-04-22 09:06:00 Abraham Orantes [facility] CONSENT/REFUSAL FOR DIAGNOSIS AND TREATMENT 2023-04-22 08:52:58 Doctor Unassigned, [place] [facility] LIPASE 2023-04-16 12:30:00 Adelaide Goodwin [facility] TROPONIN I 2023-04-16 12:30:00 Adelaide Goodwin [facility] COMP. METABOLIC PANEL ([id number]) 2023-04-16 12:30:00 Adelaide Goodwin [facility] CBC WITH DIFF 2023-04-16 12:30:00 Adelaide Goodwin [facility] CONSENT/REFUSAL FOR DIAGNOSIS AND TREATMENT 2023-04-16 11:48:23 Doctor Unassigned, [place] [facility] LIPASE 2023-04-01 05:08:00 Hemalatha Mora [facility] TROPONIN I 2023-04-01 05:08:00 Hemalatha Mor[facility] COMP. METABOLIC PANEL ([id number]) 2023-04-01 05:08:00 Hemalatha Mora [facility] CBC WITH DIFF 2023-04-01 05:08:00 Hemalatha Mora [facility] URINALYSIS 2023-04-01 05:08:00 Hemalatha Mora [facility] CONSENT/REFUSAL FOR DIAGNOSIS AND TREATMENT 2023-04-01 04:51:45 Doctor Unassigned, [place] [facility] ASSIGNMENT OF BENEFITS 2023-02-13 21:19:49 Docto r Unassigned, [place] [facility] POCT GLUCOSE (AUTOMATED) 2023-02-13 21:00:00 Alan Gonzales [facility] CONSENT/REFUSAL FOR DIAGNOSIS AND TREATMENT 2023-02-13 20:50:30 Doctor Unassigned, [place] [facility] REFERRAL- REQUEST/RESPONSE 2023-01-05 05:01:00 Doctor Unassigned, [place] [facility] LIPASE 2022-12-09 05:03:00 Soham Clarke [facility] COMP. METABOLIC PANEL ([id number]) 2022-12-09 05:03:00 Soham Clarke [facility] CBC WITH DIFF 2022-12-09 05:03:00 [facility] 2022-12-09 05:03:00 Soham Clarke [facility] NOTICE OF PRIVACY PRACTICES 2022-12-09 04:46:36 Doctor Unassigned, [place] [facility] CONSENT/REFUSAL FOR DIAGNOSIS AND TREATMENT 2022-12-09 04:46:16 Doctor Unassigned, [place] [facility] CT ABDOMEN PELVIS W CONTRAST 2022-11-25 05:38:20 Lion Nascimento [facility] LIPASE 2022-11-25 05:06:00 Azam, Cynise [facility] HEPATIC FUNCTION PANEL ([id number]) (ALB,T.PRO,BILI T,BU/BC,ALT,AST,ALK PHOS) 2022-11-25 05:06:00 Lion Nascimento [facility] BASIC METABOLIC PANEL (NA, K, CL, CO2, GLUCOSE, BUN, CREATININE, CA) 2022-11-25 05:06:00 Lion Nascimento [facility] CBC WITH DIFF 2022-11-25 05:06:00 Lion Nascimento [facility] URINALYSIS 2022-11-25 05:06:00 [facility] CONSENT/REFUSAL FOR DIAGNOSIS AND TREATMENT 2022-11-25 04:35:51 Doctor Unassigned, [place] [facility] EXTERNAL PROVIDER RECORDS 2022-10-23 06:01:00 Do ctor Unassigned, [place] [facility] CBC WITH DIFF 2022-10-12 21:26:00 Lb Bates [facility] PROSTATIC SPECIFIC ANTIGEN 2022-10-12 10:48:00 Jonh Roman [facility] HEPATIC FUNCTION PANEL ([id number]) (ALB,T.PRO,BILI T,BU/BC,ALT,AST,ALK PHOS) 2022-10-12 10:48:00 Lb Bates [facility] BASIC METABOLIC PANEL (NA, K, CL, CO2, GLUCOSE, BUN, CREATININE, CA) 2022-10-12 10:48:00 Lb Bates [facility] CBC WITH DIFF 2022-10-12 10:48:00 Lb Bates [facility] HEPATIC FUNCTION PANEL ([id number]) (ALB,T.PRO,BILI T,BU/BC,ALT,AST,ALK PHOS) 2022-10-11 23:53:00 Lb Bates [facility] BASIC METABOLIC PANEL (NA, K, CL, CO2, GLUCOSE, BUN, CREATININE, CA) 2022-10-11 23:53:00 Lb Bates [facility] US GALL BLADDER 2022-10-11 22:28:58 Alruwaili, [facility] ABORH CONFIRMATION (LAB ONLY) 2022-10-11 21:24[facility]11 21:23:00 Lb Bates [facility] HB ABO GROUPING 2022-10-11 20:41[facility]00 [facility] 2022-10-11 20:35:00 [facility]PELVIS 2022-10-11 14:52:00 Aydin Matos [facility] HB ECG ROUTINE & RHYTHM STRIP 2022-10-11 13:48:04 Aydin Matos [facility] LIPASE 2022-10-11 13:42:00 Aydin Matos [facility] TROPONIN I 2022-10-11 13:42:00 Aydin Matos [facility] COMP. METABOLIC PANEL ([id number]) 2022-10-11 13:42[facility]00 [facility][id number])(TOTAL CHOLESTEROL, TRIGLYCERIDES, HDL) 2022-10-11 13:42:00 Lb Bates [facility] CBC WITH DIFF 2022-10-11 13:42:00 Aydin Matos [facility] PROTHROMBIN TIME / INR 2022-10-11 13:42:00 Nicholas Matos [facility] ACTIVATED PARTIAL THRMPLAS TAE 2022-10-11 13:42:00 [facility]-BNP 2022-10-11 13:42:00 [facility] (IMMUNOASSAY) - COMPREHENSIVE DRUG SCREEN W/O REFLEX 2022-10-11 13:42:00 Carlo [facility] CONSENT/REFUSAL FOR DIAGNOSIS AND TREATMENT 2022-10-11 12:24:48 Doctor Unassigned, [place] [facility] CT ABDOMEN PELVIS W CONTRAST 2022-10-09 06:30:25 Abraham Orantes [facility] LIPASE 2022-10-09 05:24:00 Abraham Orantes [facility] COMP. METABOLIC PANEL ([id number]) 2022-10-09 05:24:00 Abraham Orantes [facility] CBC WITH DIFF 2022-10-09 05:24:00 Abraham Orantes [facility] URINALYSIS 2022-10-09 05:24:00 Abraham Orantes [facility] CONSENT/REFUSAL FOR DIAGNOSIS AND TREATMENT 2022-10-09 03:56:57 Doctor Unassigned, [place] [facility] COMP. METABOLIC PANEL ([id number]) 2022-08-20 15:11:00 Trevor Taylor Tiffanie [facility] CBC WITH DIFF 2022-08-20 15:11:00 Trevor Taylor [facility] URINALYSIS 2022-08-20 15:11:00 Trevor Taylor [facility] CONSENT/REFUSAL FOR DIAGNOSIS AND TREATMENT 2022-08-20 14:32:58 Doctor Unassigned, [place] [facility] CT ABDOMEN PELVIS W CONTRAST 2022-06-09 13:12:35 Soham Clarke [facility] LIPASE 2022-06-09 12:48:00 Soham Clarke [facility] COMP. METABOLIC PANEL ([id number]) 2022-06-09 12:48:00 Soham Clarke [facility] CBC WITH DIFF 2022-06-09 12:48:00 [facility] 2022-06-09 12:48:00 Soham Clarke [facility] NOTICE OF PRIVACY PRACTICES 2022-06-09 11:47:39 Doctor Unassigned, [place] [facility] CONSENT/REFUSAL FOR DIAGNOSIS AND TREATMENT 2022-06-09 11:47:18 Doctor Unassigned, [place] [facility] PHOSPHORUS 2021-11-01 09:55:00 Jerrica Sexton [facility] MAGNESIUM 2021-11-01 09:55:00 Jerrica Sexton [facility] BASIC METABOLIC PANEL (NA, K, CL, CO2, GLUCOSE, BUN, CREATININE, CA) 2021-11-01 09:55:00 Darshan [facility] CBC WITH DIFF 2021-11-01 09:55:00 Jerrica Sexton [facility] PHOSPHORUS 2021-10-31 08:45:00 Leela greg [facility] CREATINE KINASE 2021-10-31 08:45:00 Roxanne Swenson [facility] MAGNESIUM 2021-10-31 08:45:00 Emelia Gallego [facility] TROPONIN I 2021-10-31 08:45:00 [facility] COMP. METABOLIC PANEL ([id number]) 2021-10-31 08:45:00 [facility] CBC WITH DIFF 2021-10-31 08:45:00 Emelia Gallego [facility] PROTHROMBIN TIME / INR 2021-10-31 08:45:00 Leela [facility] N-TERMINAL PRO-BNP 2021-10-31 08:45:00 Roxanne Swenson [facility] LACTIC ACID WHOLE BLOOD 2021-10-31 08:45:00 Erwin Swenson [facility] FECES CULTURE 2021-10-30 22:27:00 Monica Hernandez [facility] OCCULT (GUAIAC) BLOOD 2021-10-30 22:27:00 Juany Hernandez [facility] CLOSTRIDIUM DIFFICILE TOXIN 2021-10-30 22:27:00 Monica Hernandez [facility] COVID-19 (ID NOW RAPID TESTING) 2021-10-30 21:24:00 Madison Sepulveda [facility] LAB ONLY COVID INTERPRETATION 2021-10-30 21:24:00 Madison Sepulveda [facility] CT ABDOMEN PELVIS W CONTRAST 2021-10-30 20:44:09 Madison Sepulveda [facility] LIPASE 2021-10-30 20:25:00 Madison Sepulveda [facility] TROPONIN I 2021-10-30 20:25:00 Roxanne Swenson [facility] COMP. METABOLIC PANEL ([id number]) 2021-10-30 20:25:00 Madison Sepulveda [facility] CBC WITH DIFF 2021-10-30 20:25:00 Madison Sepulveda [facility] URINALYSIS 2021-10-30 20:25:00 Madison Sepulveda [facility] N-TERMINAL PRO-BNP 2021-10-30 20:25:00 Roxanne Swenson [facility] CONSENT/REFUSAL FOR DIAGNOSIS AND TREATMENT 2021-10-30 19:24:05 Doctor Unassigned, [place] [facility] CREATINE KINASE 2021-05-24 04:40:00 Felipe Ortega [facility] BASIC METABOLIC PANEL (NA, K, CL, CO2, GLUCOSE, BUN, CREATININE, CA) 2021-05-24 04:40:00 Felipe Ortega [facility] URINALYSIS 2021-05-24 02:14:00 Felipe Ortega [facility] CREATINE KINASE 2021-05-24 01:53:00 Felipe Ortega [facility] TROPONIN I 2021-05-24 01:53:00 Felipe Ortega [facility] COMP. METABOLIC PANEL ([id number]) 2021-05-24 01:53:00 Felipe Ortega [facility] CBC WITH DIFF 2021-05-24 01:53:00 Felipe Ortega [facility] N-TERMINAL PRO-BNP 2021-05-24 01:53:00 Felipe Ortega [facility] ASSIGNMENT OF BENEFITS 2021-05-23 00:46:04 Docto r Unassigned, [place] [facility] CONSENT/REFUSAL FOR DIAGNOSIS AND TREATMENT 2021-05-22 23:31:57 Doctor Unassigned, [place] [facility] SARS-COV-2 COVID-19 VACCINE,0.3ML,IM (PFIZER) 2021-05-07 16:12:40 Doctor Unassigned, [place] [facility] RAPID STREP SCREEN FOR GROUP A 2021-05-02 00:07:00 Aydin Matos [facility] COVID-19 (ID NOW RAPID TESTING) 2021-05-02 00:07:00 Aydin Matos [facility] CONSENT/REFUSAL FOR DIAGNOSIS AND TREATMENT 2021-05-01 23:56:07 Doctor Unassigned, [place] [facility] RAPID STREP SCREEN FOR GROUP A 2021-04-02 01:05:00 Nikhil Blanton [facility] COVID-19 (ID NOW RAPID TESTING) 2021-04-02 01:05:00 Nikhil Blanton [facility] NOTICE OF PRIVACY PRACTICES 2021-04-02 00:56:18 Doctor Unassigned, [place] [facility] CONSENT/REFUSAL FOR DIAGNOSIS AND TREATMENT 2021-04-02 00:49:05 Doctor Unassigned, [place] [facility] XR WRIST 3+ VW LEFT 2021-03-18 01:19:59 Destini Blanton [facility] URINALYSIS 2021-03-18 01:12:00 Nikhil Blanton [facility] CONSENT/REFUSAL FOR DIAGNOSIS AND TREATMENT 2021-03-18 00:56:01 Doctor Unassigned, [place] [facility] XR CHEST 1 VW 2020-11-15 03:48:28 Darnell Hsu [facility] CONSENT/REFUSAL FOR DIAGNOSIS AND TREATMENT 2020-11-15 03:11:27 Doctor Unassigned, [place] [facility] CT HEAD WO CONTRAST 2020-09-30 15:00:43 Jessica Siddiqui ra [facility] XR CHEST 1 VW 2020-09-30 14:37:13 [facility] 2020-09-30 14:25:00 Jessy Siddiqui [facility] TROPONIN I 2020-09-30 14:25:00 Jessy Siddiqui [facility] COMP. METABOLIC PANEL ([id number]) 2020-09-30 14:25:00 Jessy Siddiqui [facility] CBC WITH DIFF 2020-09-30 14:25:00 Jessy Siddiqui U [facility] N-TERMINAL PRO-BNP 2020-09-30 14:25:00 Solitario Siddiqui [facility] NOTICE OF PRIVACY PRACTICES 2020-09-30 13:57:13 Doctor Unassigned, [place] [facility] CONSENT/REFUSAL FOR DIAGNOSIS AND TREATMENT 2020-09-30 13:55:57 Doctor Unassigned, [place] [facility] EKG-12 LEAD 2020-07-02 03:20:42 Felipe Ortega [facility] LIPASE 2020-07-02 03:05:00 Abraham Orantes [facility] TROPONIN I 2020-07-02 03:05:00 Dyana Felipe [facility] COMP. METABOLIC PANEL ([id number]) 2020-07-02 03:05:00 Abraham Orantes [facility] CBC WITH DIFF 2020-07-02 03:05:00 Abraham Orantes [facility] NOTICE OF PRIVACY PRACTICES 2020-07-02 02:48:43 Doctor Unassigned, [place] [facility] CONSENT/REFUSAL FOR DIAGNOSIS AND TREATMENT 2020-07-02 02:46:14 Doctor Unassigned, [place] [facility] Plan of Care Planned Activity Planned Date Details Comments Source Goal Plan of Care Note [code = 13924-8] Goal Plan of Care Note [code = 56628-9] Goal Plan of Care Note [code = 94656-2] Goal Plan of Care Note [code = 91901-9] Goal Plan of Care Note [code = 04303-0] Goal Plan of Care Note [code = 73048-6] Goal Plan of Care Note [code = 11172-4] Goal Plan of Care Note [code = 59324-9] Goal Plan of Care Note [code = 04469-1] Goal Plan of Care Note [code = 84583-2] Goal Plan of Care Note [code = 91891-8] Goal Plan of Care Note [code = 84322-4] Goal Plan of Care Note [code = 97196-7] Goal Plan of Care Note [code = 64074-7] Goal Plan of Care Note [code = 79484-0] Encounters Start Date/Time End Date/Time Encounter Type Admission Type Attending [facility] Care Facility Care Department Encounter ID Source 2022-07-29 14:17:02 [id number] [facility] 2022-07-11 08:20:03 Outpatient Mayuri James [facility] [id number] [facility] 2024-05-30 09:45:00 2024-05-30 09:45:00 Outpatient HAYDEN ORTIZ [id number] [facility] 2024-05-27 09:30:00 2024-05-27 09:30:00 Outpatient ELIZABETHYANADRI [id number] [facility] 2024-05-24 15:00:00 2024-05-24 15:00:00 Outpatient HAYDEN ORTIZ [id number] [facility] 2024-04-22 08:00:00 2024-04-22 08:00:00 Outpatient LUZ MARIA HOLLIDAY [id number] [facility] 2024-04-12 09:40:00 2024-04-12 09:40:00 Outpatient BROOK ALLEN [id number] [facility] 2024-04-11 08:00:00 2024-04-11 08:00:00 Outpatient LUZ MARIA HOLLIDAY [id number] [facility] 2024-04-11 00:00:00 2024-04-11 00:00:00 Outpatient GIBRAN MCADAMS [id number] [facility] 2024-04-08 16:30:00 2024-04-08 16:30:00 Outpatient LEANDRO MANN [id number] [facility] 2024-04-04 08:10:00 2024-04-04 08:10:00 Outpatient LAB90 LUZ MAR[facility] [id number] [facility]02 08:39:00 2024-04-02 12:55:00 Emergency X Trevor TAYLOR MADDIETrevor [facility] [id number] [facility] 2024-04-02 08:39:00 2024-04-02 12:55:00 Emergency Trevor Taylor Tiffanie [facility] ..840.114 350.1.13.10 4.2.7.2.686 [id number] [facility] 2024-04-02 00:00:00 2024-04-02 00:00:00 Outpatient GERALD VIDAL [id number] [facility] 2024-03-30 09:00:00 2024-03-30 09:00:00 Outpatient HELLEN HOLLIDAY [id number] [facility] 2024-03-30 08:30:00 2024-03-30 08:30:00 Outpatient GIBRAN MCADAMS [id number] [facility] 2024-03-30 00:00:00 2024-03-30 00:00:00 Outpatient GIBRAN MCADAMS [id number] [facility] 2024-03-30 00:00:00 2024-03-30 00:00:00 Outpatient HAYDEN ORTIZ [id number] [facility] 2024-03-28 00:00:00 2024-03-28 00:00:00 Outpatient HAYDEN ORTIZ [id number] [facility] 2024-03-23 00:00:00 2024-03-23 00:00:00 Outpatient HAYDEN ORTIZ [id number] [facility] 2024-02-29 00:00:00 2024-02-29 13:30:22 Letter (Out) Karl Ferguson [facility] 1..840.114 350.1.13.10 4.2.7.2.686 [id number] [facility] 2024-02-24 00:00:00 2024-02-24 00:00:00 Outpatient OUTSIDE, REPORTED LUZ MARIA HOLLIDAY [id number] Luz Maria Ng 2024-02-24 00:00:00 2024-02-24 00:00:00 Outpatient PREZABirgit, HAYDEN LUZ MARIA HOLLIDAY [id number] Luz Maria [facility] 2024-02-22 00:00:00 2024-02-22 14:50:01 Letter (Out) Elida Lewis [facility] 1.2.840.114 350.1.13.10 4.2.7.2.686 [id number] [facility] 2024-02-22 00:00:00 2024-02-22 00:00:00 Outpatient ANGEL, HAYDEN LUZ MARIA HOLLIDAY [id number] [facility] 2024-02-20 21:47:00 2024-02-20 23:54:00 Emergency X LETI RIVAS ERICCA [facility] [id number] [facility] 2024-02-20 21:47:00 2024-02-20 23:54:00 Emergency Leti Rivas [facility] 1.2.840.114 350.1.13.10 4.2.7.2.686 [id number] [facility] 2024-01-26 00:00:00 2024-01-26 00:00:00 Outpatient PREANNIA, HAYDEN HOLLIDAY [id number] Luz Maria Ng 2024-01-15 00:00:00 2024-01-15 00:00:00 Outpatient PREZAHAYDEN Genao [id number] [facility] 2023-12-28 00:00:00 2023-12-28 00:00:00 Outpatient ANGIEZAHAYDEN Genao [id number] Luz Maria Ng 2023-12-18 00:00:00 2023-12-18 00:00:00 Outpatient LUZ MARIA HOLLIDAY [id number] Luz Maria Ng 2023-12-17 15:30:00 2023-12-17 15:30:00 Outpatient PREZAHAYDEN GenaoSEY [id number] [facility] 2023-12-11 00:00:00 2023-12-11 00:00:00 Outpatient HAYDEN ORITZ LU[facility] MARIA [facility]ID[facility] [id number] [facility] 2023-12-09 20:14:00 2023-12-09 23:50:00 Emergency X ABRAHAM ORANTES [facility] [id number] [facility] 2023-12-09 20:14:00 2023-12-09 23:50:00 Emergency Abraham Orantes S [facility] 1.2.840.114 350.1.13.10 4.2.7.2.686 [id number] [facility] 2023-11-24 00:00:00 2023-11-24 00:00:00 Outpatient REYESBirgit HAYDEN HOLLIDAY [id number] [facility] 2023-11-18 00:00:00 2023-11-18 00:00:00 Letter (Out) Chavez Turner [facility] 1.2.840.114 350.1.13.10 4.2.7.2.686 [id number] [facility] 2023-11-10 14:00:00 2023-11-10 14:00:00 Outpatient ANGEL HAYDEN HOLLIDAY [id number] [facility] 2023-11-09 00:00:00 2023-11-09 00:00:00 Outpatient ANGEL HAYDEN HOLLIDAY [id number] [facility] 2023-11-06 00:00:00 2023-11-06 00:00:00 Outpatient HAYDEN ORTIZ [id number] [facility] 2023 11:30:00 2023 11:30:00 Outpatient CALLIE THORNE JULIANA [facility] [id number] [facility] 2023-10-16 00:00:2023-10-16 00:00:00 Outpatient HAYDEN ORTIZ LUZ MARIA HOLLIDAY [id number] [facility] 2023-10-13 00:00:00 2023-10-13 00:00:00 Outpatient LUZ MARIA HOLLIDAY [id number] [facility] 2023-10-06 14:30:00 2023-10-06 14:30:00 Outpatient ANGEL HAYDEN LUZ MARIA HOLLIDAY [id number] [facility] 2023-08-14 00:00:00 2023-08-14 00:00:00 Outpatient MERLYN [facility] [id number] [facility] 2023-08-13 00:00:00 2023-08-13 00:00:00 Patient Secure Msg Doctor Unassigned, [place] [facility] 1.840.114 350.1.13.10 4.2.7.2.686 [id number] [facility] 2023-08-11 16:15:00 2023-08-11 16:15:00 Outpatient HARJINDERINOADAN Topete LUZ MARIA HOLLIDAY [id number] [facility] 2023-08-03 20:26:00 2023-08-04 00:05:00 Emergency X OSMAR ORANTESONESIMO [facility] [id number] [facility] 2023-08-03 20:26:00 2023-08-04 00:05:00 Emergency Abraham Orantes S [facility] 1..840.114 350.1.13.10 4.2.7.2.686 [id number] [facility] 2023-08-03 00:00:00 2023-08-03 00:00:00 Outpatient KIARA RICHARDSON [id number] [facility] 2023-08-03 00:00:00 2023-08-03 00:00:00 Orders Only Doctor Unassigned, [place] [facility] 1..840.114 350.1.13.10 4.2.7.2.686 [id number] [facility] 2023-07-25 09:58:00 2023-07-25 12:56:00 Emergency X Trevor TAYLOR [facility] [id number] [facility] 2023-07-25 09:58:00 2023-07-25 12:56:00 Emergency Trevor Taylor Tiffanie [facility] .840.114 350.1.13.10 4.2.7.2.686 [id number] [facility] 2023-07-24 12:36:00 2023-07-24 17:49:00 Emergency X MARGARITA JOHNATHAN [facility] [id number] [facility] 2023-07-24 12:36:00 2023-07-24 17:49:00 Emergency Johnathan Avila [facility] .840.114 350.1.13.10 4.2.7.2.686 [id number] [facility] 2023-07-24 14:30:00 2023-07-24 14:30:00 Outpatient ADAN CHESTER [id number] Luz Maria Ng 2023-07-24 00:00:00 2023-07-24 00:00:00 Telephone Merlyn Hidalgo [facility] [place] [facility] .840.114 350.1.13.10 4.2.7.2.686 [id number] [facility] 2023-07-23 05:22:00 2023-07-23 10:02:00 Emergency Jessie Lion [id number] [address] [place] [address] 2023-07-22 00:00:00 2023-07-22 00:00:00 Telephone Emerald Martindale [facility] [place] [facility] 840.114 350.1.13.10 4.2.7.2.686 [id number] [facility] 2023-07-22 00:00:00 2023-07-22 00:00:00 Patient Secure Msg Doctor Unassigned, [place] [facility] 1.284.114 350.1.13.10 4.2.7.2.686 [id number] [facility] 2023-07-20 00:00:00 2023-07-20 00:00:00 Telephone Merlyn Hidalgo [facility] 1.84.114 350.1.13.10 4.2.7.2.686 [id number] [facility] 2023-07-17 13:45:00 2023-07-17 13:45:00 Outpatient JIMMY BRENNAN [id number] Luz Maria Ng 2023-07-11 20:53:00 2023-07-11 23:38:00 Emergency X STEPHIE HEWITT [facility] [id number] [facility] 2023-07-11 20:53:00 2023-07-11 23:38:00 Emergency [facility] Stephie Mcdonnell [facility] 1.84.114 350.1.13.10 4.2.7.2.686 [id number] [facility] 2023-07-10 08:45:00 2023-07-10 12:03:37 Outpatient R MERLYN HIDALGO [facility] [id number] [facility] 2023-07-10 08:45:00 2023-07-10 12:03:37 Office Visit Merlyn Hidalgo [facility] [place] [facility] 1.84.114 350.1.13.10 4.2.7.2.686 [id number] [facility] 2023-07-10 00:00:00 2023-07-10 00:00:00 Orders Only Doctor Unassigned, [place] [facility] 1.840.114 350.1.13.10 4.2.7.2.686 [id number] [facility] 2023-07-08 09:15:00 2023-07-08 09:15:00 Outpatient KIARA RICHARDSON [id number] [facility] 2023-07-03 04:49:00 2023-07-03 09:47:00 Emergency X MIRIAM LUDWIG, [facility] E[facility] [id number] [facility] 2023-07-03 04:49:00 2023-07-03 09:47:00 [facility] [place] 1..840.114 350.1.13.10 4.2.7.2.686 [id number] [facility] 2023-07-01 22:56:00 2023-07-02 01:00:00 Emergency EM Jessie Gleason [facility] ER [id number] [facility] 2023-05-20 15:50:00 2023-05-20 15:50:00 Outpatient LAB56 LUZ MARIA HOLLIDAY [id number] [facility] 2023-05-20 15:15:00 2023-05-20 15:15:00 Outpatient KIARA RICHARDSON [id number] [facility] 2023-05-07 17:37:00 2023-05-07 23:23:00 Emergency X MANFRED CHAMBERLAIN [facility] [id number] [facility] 2023-05-07 17:37:00 2023-05-07 23:23:00 Emergency Jarvis Chamberlain [facility] 1.840.114 350.1.13.10 4.2.7.2.686 [id number] [facility] 2023-05-01 21:39:00 2023-05-02 00:35:00 Emergency X AYDIN MATOS [facility] ERT [id number] [facility] 2023-05-01 21:39:00 2023-05-02 00:35:00 Emergency Aydin Matos [facility] 1.2.840.114 350.1.13.10 4.2.7.2.686 [id number] [facility] 2023-04-22 03:51:00 2023-04-22 13:11:00 Emergency X [facility] E[facility] [id number] [facility] 2023-04-22 03:51:00 2023-04-22 13:11:00 Emergency Lamberto Osmaronesimo [facility] 1.2.840.114 350.1.13.10 4.2.7.2.686 [id number] [facility] 2023-04-16 07:09:00 2023-04-16 09:00:00 Emergency X KATIANAADELAIDE VALENTIN [facility] ERT [id number] [facility] 2023-04-16 07:09:00 2023-04-16 09:00:00 Emergency Adelaide Goodwin [facility] 1.2.840.114 350.1.13.10 4.2.7.2.686 [id number] [facility] 2023-03-31 23:59:00 2023-04-01 03:24:00 Emergency X HEMALATHA MORA [facility] ERT [id number] [facility] 2023-03-31 23:59:00 2023-04-01 03:24:00 Emergency Morgan Hemalatha [facility] 1.2.840.114 350.1.13.10 4.2.7.2.686 [id number] [facility] 2023-02-13 16:02:00 2023-02-13 17:25:00 Emergency X JESSICA GONZALES [facility] ERT [id number] [facility] 2023-02-13 16:02:00 2023-02-13 17:25:00 Emergency Jessica Gonzales [facility] 1.2840.114 350.1.13.10 4.2.7.2.686 [id number] [facility] 2023-01-05 00:00:00 2023-01-05 00:00:00 Orders Only Doctor Unassigned, [place] [facility] 1.20.114 350.1.13.10 4.2.7.2.686 [id number] [facility] 2022-12-29 17:25:40 2022-12-29 17:25:40 Outpatient [facility] [id number] 0417 Dewey Ponce 2022-12-09 00:01:00 2022-12-09 01:39:00 Emergency X SOHAM CLARKE [facility] [id number] [facility] 2022-12-09 00:01:00 2022-12-09 01:39:00 Emergency Soham Clarke [facility] 1.0.114 350.1.13.10 4.2.7.2.686 [id number] [facility] 2022-11-24 23:44:00 2022-11-25 02:56:00 Emergency AYDIN CALLAWAY [facility] [id number] [facility] 2022-11-24 23:44:00 2022-11-25 02:56:00 Emergency Lion Nascimento [facility] 1.0.114 350.1.13.10 4.2.7.2.686 [id number] [facility] 2022-10-25 00:00:00 2022-10-25 00:00:00 Patient Secure Msg Doctor Unassigned, [place] [facility] 1.2.114 350.1.13.10 4.2.7.2.686 [id number] [facility] 2022-10-23 00:00:00 2022-10-23 00:00:00 Orders Only Doctor Unassigned, [place] [facility] 1.2840.114 350.1.13.10 4.2.7.2.686 [id number] [facility] 2022-10-11 06:41:00 2022-10-12 17:56:00 Outpatient X MARK HERNANDEZ [facility] MARTI [id number] [facility] 2022-10-11 06:41:00 2022-10-12 17:56:00 Emergency Aydin Matos Norman [facility] 1.2840.114 350.1.13.10 4.2.7.2.686 [id number] [facility] 2022-10-08 22:15:00 2022-10-09 01:39:00 Emergency X OSMAR ORANTESONESIOM [facility] [id number] [facility] 2022-10-08 22:15:00 2022-10-09 01:39:00 Emergency Abraham Orantes Birgit [facility] 1.2840.114 350.1.13.10 4.2.7.2.686 [id number] [id number] [facility] 2022-10-08 00:00:00 2022-10-08 00:00:00 Orders Only Doctor Unassigned, [place] [facility] 1.2840.114 350.1.13.10 4.2.7.2.686 [id number] [facility] 2022-08-20 08:42:00 2022-08-20 12:19:00 Emergency X Trevor TAYLOR [facility] [id number] [facility] 2022-08-20 08:42:00 2022-08-20 12:19:00 Emergency Trevor Taylor [facility] 1.2.840.114 350.1.13.10 4.2.7.2.686 [id number] [id number] [facility] 2022-07-11 00:00:00 2022-07-11 00:00:00 OFFICE VISIT NEW PT LEVEL 3 STLMLC STLMLC [id number] [facility] 2022-07-09 10:07:22 2022-07-09 10:07:22 Outpatient SFA [facility] [id number] 1026 Dewey Ponce 2022-07-09 00:00:00 2022-07-09 00:00:00 Outpatient Visit [id number] 2022-06-09 06:57:00 2022-06-09 10:27:00 Emergency X SOHAM CLARKE [facility] [id number] [facility] 2022-06-09 06:57:00 2022-06-09 10:27:00 Emergency Soham Clarke [facility] 1.2.840.114 350.1.13.10 4.2.7.2.686 [id number] [facility] 2022-06-09 00:00:00 2022-06-09 00:00:00 Orders Only Doctor Unassigned, [place] [facility] 1.2.840.114 350.1.13.10 4.2.7.2.686 [id number] [facility] 2021-11-04 00:00:00 2021-11-04 00:00:00 Transition of Care Ellen Carroll 1.2.840.114 350.1.13.10 4.2.7.2.686 [id number] [facility] 2021-10-30 13:39:00 2021-11-01 13:45:00 Inpatient X EMELIA GALLEGO [facility] M[facility]I [id number] [facility] 2021-10-30 13:39:00 2021-11-01 13:45:00 Hospital Encounter Madison Sepulveda David [facility] 1.0.114 350.1.13.10 4.2.7.2.686 [id number] [facility] 2021-10-30 00:00:00 2021-10-30 00:00:00 Orders Only Doctor Unassigned, [place] [facility] 1..114 350.1.13.10 4.2.7.2.686 [id number] [facility] 2021-05-23 20:42:00 2021-05-24 01:42:00 Emergency Felipe Ortega [facility] 1..114 350.1.13.10 4.2.7.2.686 [id number] [id number] [facility] 2021-05-23 20:42:00 2021-05-23 20:42:00 Emergency Josr ORTEGA FEILPE [facility] ERT [id number] [facility] 2021-05-22 18:37:00 2021-05-22 21:40:00 Emergency Gabriella Zarate [facility] 1..114 350.1.13.10 4.2.7.2.686 [id number] [id number] [facility] 2021-05-22 18:31:00 2021-05-22 18:31:00 Emergency X [facility] [id number] [facility] 2021-05-07 11:11:35 2021-05-07 11:11:42 Imm/Inj Visit Nurse, Malika Pogay ImmunizDavid Nam [facility] 1..114 350.1.13.10 4.2.7.2.686 [id number] [facility] 2021-05-01 19:09:00 2021-05-01 20:46:00 [facility] 1.2.840.114 350.1.13.10 4.2.7.2.686 [id number] [facility] 2021-05-01 18:53:00 2021-05-01 18:53:00 Emergency X [facility] [id number] [facility] 2021-04-01 20:06:00 2021-04-01 21:56:00 Emergency [place], [place] 1.2.840.114 350.1.13.10 4.2.7.2.686 [id number] [id number] [facility] 2021-04-01 20:06:00 2021-04-01 21:56:00 Emergency [place], [place] 1.2.840.114 350.1.13.10 4.2.7.2.686 [id number] [id number] 2021-04-01 20:06:00 2021-04-01 20:06:00 Emergency X BLANTONNIKHIL JERRY [facility] ERT [id number] [facility] 2021-03-17 20:09:00 2021-03-17 22:19:00 Emergency [place], [place] 1.2.840.114 350.1.13.10 4.2.7.2.686 [id number] [id number] [facility] 2021-03-17 20:09:00 2021-03-17 22:19:00 Emergency [place], [place] 1.2.840.114 350.1.13.10 4.2.7.2.686 [id number] 2021-03-17 19:56:00 2021-03-17 19:56:00 Emergency X [facility] E[facility] [id number] [facility] 2020-11-15 00:00:00 2020-11-15 00:00:00 Letter (Out) Mirna Mar [facility] 1.2.840.114 350.1.13.10 4.2.7.2.686 [id number] [facility] 2020-11-15 00:00:00 2020-11-15 00:00:00 Telephone Pcp, Patient Does Not Have A [facility] 1.2.840.114 350.1.13.10 4.2.7.2.686 [id number] [id number] [facility] 2020-11-15 00:00:00 2020-11-15 00:00:00 Telephone Pcp, Patient Does Not Have A [facility] 1.2.840.114 350.1.13.10 4.2.7.2.686 [id number] 2020-11-15 00:00:00 2020-11-15 00:00:00 [facility] 1.2.840.114 350.1.13.10 4.2.7.2.686 [id number] 2020-11-14 21:29:00 2020-11-14 22:55:00 Emergency Darnell Hsu [facility] 1.2.840.114 350.1.13.10 4.2.7.2.686 [id number] [facility] 2020-11-14 21:29:00 2020-11-14 22:55:00 Emergency X DARNELL HSU [facility] ERT [id number] [facility] 2020-11-14 21:29:00 2020-11-14 22:55:00 Emergency Darnell Hsu [facility] 1.2.840.114 350.1.13.10 4.2.7.2.686 [id number] 2020-09-30 08:03:00 2020-09-30 10:45:00 Emergency Jessy Siddiqui [facility] 1.2.840.114 350.1.13.10 4.2.7.2.686 [id number] [facility] 2020-09-30 08:03:00 2020-09-30 10:45:00 Emergency Jessy Siddiqui [facility] 1.2.840.114 350.1.13.10 4.2.7.2.686 [id number] 2020-09-30 07:58:00 2020-09-30 07:58:00 Emergency X [facility] ERT [id number] [facility] 2020-09-30 00:00:00 2020-09-30 00:00:00 Orders Only Doctor Unassigned, [place] [facility] 1.2.840.114 350.1.13.10 4.2.7.2.686 [id number] [facility] 2020-09-30 00:00:00 2020-09-30 00:00:00 Orders Only Doctor Unassigned, [place] [facility] 1.2.840.114 350.1.13.10 4.2.7.2.686 [id number] 2020-07-01 21:58:00 2020-07-01 23:54:00 Emergency Felipe Ortega [facility] 1.2.840.114 350.1.13.10 4.2.7.2.686 [id number] [facility] 2020-07-01 21:58:00 2020-07-01 23:54:00 [facility] 1.2.840.114 350.1.13.10 4.2.7.2.686 [id number] 2020-07-01 21:58:00 2020-07-01 21:58:00 Emergency X FELIPE ORTEGA [facility] ERT [id number] [facility] Results Test Description Test Time Test Comments Results Result Co m[facility] [id number] 15:06:25CT ABDOMEN PELVIS W CONTRAST HISTORY: 53 years-old; Male; Abdominal abscess/infection suspected COMPARISON: CT dated 12/09/2023. TECHNIQUE AND FINDINGS: Contiguous axial imaging from the level of the lungbases through the pubic symphysis was performed after the uncomplicatedadministration of intraven ous Omnipaque contrast. Coronal and sagittalreconstructions were obtained. ?Auto mA and/or iterative reconstructionwere used to reduce radiation dose. FINDINGS: LOWER THORAX: The lung bases are clear. No cardiomegaly. LIVER: Right hepatic lobe hypoattenuating lesion, too small tocharacterize. Normal contour. GALLBLADDER AND BILIARY TREE: No intra or extrahepatic biliary ductaldilation. SPLEEN: Unremarkable. PANCREAS: No ductal dilatation or masses ADRENAL GLANDS: No adrenal lesions. KIDNEYS: Nohydronephrosis, stones, or masses. Homogeneous and symmetricalenhancement. GI TRACT: No dilation orbowel wall thickening. Diverticulosis withoutevidence of acute diverticulitis.The appendix is normal.. PERITONEUM AND RETROPERITONEUM: No free air or fluid collection. LYMPH NODES: No intra-abdominalor pelvic lymph node enlargement. PELVIS/BLADDER: Bladder is fully distended with no wall thickening. VESSELS: Unremarkable. BONES AND SOFT TISSUES: No suspicious lytic or sclerotic bony lesions.Small fat-containing umbilical hernia is seen. Degenerative changes atL5-S1 level noted.[facility] ([id number])2024-04-02 14:58:53* Test Item Value Reference Range Interpretation Comme nts NA (test code = 8632344030) 138 mmol/L 135-145 K (test code = 2817794491) 4.6 mmol/L 3.5-5.0 CL (test code = 6317592947) 105 mmol/L 98-108 CO2 TOTAL (test code = 6201019505) 28 mmol/L 23-31 AGAP (test code = 6884150066) 5 2-16 BUN (test code = 3930387895) 19 mg/dL 7-23 GLUCOSE (test code = 1848462669) 117 mg/dL 70-110 H CREATININE (test code = 2160-0) 0.91 mg/dL 0.60-1.25 TOTAL BILI (test code = 0120777616) 0.8 mg/dL 0.1-1.1 CALCIUM (test code = 7054493470) 9.2 mg/dL 8.6-10.6 T PROTEIN (test code = 4252842732) 8.4 g/dL 6.3-8.2 H ALBUMIN (test code = 1039375549) 4.4 g/dL 3.5-5.0 ALK PHOS (test code = 4543373570) 58 U/L 34-122 ALTv (test code = 1742-6) 28 U/L 5-50 AST(SGOT) (test code = 6433978262) 33 U/L 13-40 eGFR (test code = 56187-2) 102.0 mL/min/1.73m2 CKD-EPI eGFR (2020). Assuming creatinine has been stable day-to-day for at least three months, the eGFR indicates Category G1 (>= 90 mL/min/1.73 m2) Lab Interpretation (test code = 95476-2) [facility] ([facility]Total Cholesterol, Triglycerides, HDL)2024-04-02 14:58:53* Test Item Value Reference Range Interpretation Comme nts CHOL (test code = 7723378079) 190 mg/dL 120-200 HDL (test code = 0703445353) 37 mg/dL >=40 L HDLC RATIO (test code = 7493702827) 5.1 <=5.0 H TRIG (test code = 6516079432) 107 mg/dL 30-170 LDL CHOL (test code = 85368-7) 132 mg/dL <=160 VLDL (test code = 6952527848) 21 mg/dL 5-60 Lab Interpretation (test cod e = 42573-0) [facility]normal [facility] 14:58:32* Test Item Value Reference Range Interpretation Comme nts MAGNESIUM (test code = 2904748961) 1.9 mg/dL 1.7-2.4 Lab Interpretation (test cod e = 31289-1) Normal [facility] 14:58:12* Test Item Value Reference Range Interpretation Comme nts LIPASE (test code = 5307696795) 384 U/L 0-220 H Lab Interpretation (test cod e = 98707-8) [facility]normal [facility] with [id number] 14:40:51* Test Item Value Reference Range Interpretation Comme nts WBC (test code = 6690-2) 5.24 4.20-10.70 RBC (test code = 789-8) 5.06 4.26-5.52 HGB (test code = 718-7) 15.4 g/dL 12.2-16.4 HCT (test code = 4544-3) 44.0 % 38.4-49.3 MCV (test code = 787-2) 87.0 fL 81.7-95.6 MCH (test code = 785-6) 30.4 pg 26.1-32.7 MCHC (test code = 786-4) 35.0 g/dL 31.2-35.0 RDW-SD (test code = 66536-5) 41.7 fL 38.5-51.6 RDW-CV (test code = 788-0) 13.3 % 12.1-15.4 PLT (test code = 777-3) 216 150-328 MPV (test code = 87656-9) 9.9 fL 9.8-13.0 NRBC/100 WBC (test code = 5187013491) 0.0 0.0-10.0 NRBC x10^3 (test code = 3074106723) See_Comment [Automated me ssage] The system which generated this result transmitted reference range: 10*3/?L. The reference range was not used to interpret this result as normal/abnormal. GRAN MAT (NEUT) % (test code = 770-8) 44.1 % IMM GRAN % (test code = 1170250071) 0.40 % LYMPH % (test code = 736-9) 45.4 % MONO % (test code = 5905-5) 8.4 % EOS % (test code = 713-8) 1.1 % BASO % (test code = 706-2) 0.6 % GRAN MAT x10^3(ANC) (test code = 1173948342) 2.31 10*3/uL 1.99-6.95 IMM GRAN x10^3 (test code = 9635602922) 0.00-0.06 LYMPH x10^3 (test code = 731-0) 2.38 10*3/uL 1.09-3.23 MONO x10^3 (test code = 742-7) 0.44 10*3/uL 0.36-1.02 EOS x10^3 (test code = 711-2) 0.06 10*3/uL 0.06-0.53 BASO x10^3 (test code = 704-7) 0.03 10*3/uL 0.01-0.09 [facility] (35885)2024-02-21 03:54:20* Test Item Value Reference Range Interpretation Comme nts NA (test code = 5200229232) 137 mmol/L 135-145 K (test code = 0154845315) 3.9 mmol/L 3.5-5.0 CL (test code = 4362855548) 106 mmol/L 98-108 CO2 TOTAL (test code = 7790896807) 26 mmol/L 23-31 AGAP (test code = 6343359604) 5 2-16 BUN (test code = 4753290412) 14 mg/dL 7-23 GLUCOSE (test code = 2468615608) 128 mg/dL 70-110 H CREATININE (test code = 2160-0) 0.98 mg/dL 0.60-1.25 TOTAL BILI (test code = 2096008242) 0.5 mg/dL 0.1-1.1 CALCIUM (test code = 1285778850) 8.6 mg/dL 8.6-10.6 T PROTEIN (test code = 6129754655) 7.4 g/dL 6.3-8.2 ALBUMIN (test code = 4013460730) 4.1 g/dL 3.5-5.0 ALK PHOS (test code = 5098230592) 66 U/L 34-122 ALTv (test code = 1742-6) 25 U/L 5-50 AST(SGOT) (test code = 6455417828) 39 U/L 13-40 eGFR (test code = 32425-2) 93.4 mL/min/1.73m2 CKD-EPI eGFR (2020). Assuming creatinine has been stable day-to-day for at least three months, the eGFR indicates Category G1 (>= 90 mL/min/1.73 m2) Lab Interpretation (test code = 05039-9) [facility]normal [facility]24[facility] 03:53:40* Test Item Value Reference Range Interpretation Comme nts LIPASE (test code = 2320031582) 117 U/L 0-220 Lab Interpretation (test cod e = 62268-8) Normal [facility] WITH [id number] 03:39:58* Test Item Value Reference Range Interpretation [...] 34.8 g/dL 31.2-35.0 RDW-SD (test code = 97871-4) 40.3 fL 38.5-51.6 RDW-CV (test code = 788-0) 12.7 % 12.1-15.4 PLT (test code = 777-3) 216 150-328 MPV (test code = 76263-2) 9.6 fL 9.8-13.0 L NRBC/100 WBC (test code = 7414414728) 0.0 0.0-10.0 NRBC x10^3 (test code = 7998336787) See_Comment [Automated messa ge] The system which generated this result transmitted reference range: 10*3/?L. The reference range was not used to interpret this result as normal/abnormal. GRAN MAT (NEUT) % (test code = 770-8) 32.8 % IMM GRAN % (test code = 2076848865) 0.20 % LYMPH % (test code = 736-9) 58.5 % MONO % (test code = 5905-5) 6.6 % EOS % (test code = 713-8) 1.4 % BASO % (test code = 706-2) 0.5 % GRAN MAT x10^3(ANC) (test code = 5235389418) 1.94 10*3/uL 1.99-6.95 L IMM GRAN x10^3 (test code = 0731469497) 0.00-0.06 LYMPH x10^3 (test code = 731-0) 3.46 10*3/uL 1.09-3.23 H MONO x10^3 (test code = 742-7) 0.39 10*3/uL 0.36-1.02 EOS x10^3 (test code = 711-2) 0.08 10*3/uL 0.06-0.53 BASO x10^3 (test code = 704-7) 0.03 10*3/uL 0.01-0.09 Lab Interpretation (test code = 25173-4) Abnormal [facility] with [id number] 03:17:11* Test Item Value Reference Range Interpretation [...] 34.8 g/dL 31.2-35.0 RDW-SD (test code = 57597-8) 39.9 fL 38.5-51.6 RDW-CV (test code = 788-0) 12.7 % 12.1-15.4 PLT (test code = 777-3) 240 150-328 MPV (test code = 46835-9) 9.8 fL 9.8-13.0 NRBC/100 WBC (test code = 4833511293) 0.0 0.0-10.0 NRBC x10^3 (test code = 2197091028) See_Comment [Automated messa ge] The system which generated this result transmitted reference range: 10*3/?L. The reference range was not used to interpret this result as normal/abnormal. GRAN MAT (NEUT) % (test code = 770-8) 31.3 % IMM GRAN % (test code = 0136764506) 0.00 % LYMPH % (test code = 736-9) 57.3 % MONO % (test code = 5905-5) 9.3 % EOS % (test code = 713-8) 1.6 % BASO % (test code = 706-2) 0.5 % GRAN MAT x10^3(ANC) (test code = 4353800621) 1.94 10*3/uL 1.99-6.95 L IMM GRAN x10^3 (test code = 1063642132) 0.00-0.06 LYMPH x10^3 (test code = 731-0) 3.56 10*3/uL 1.09-3.23 H MONO x10^3 (test code = 742-7) 0.58 10*3/uL 0.36-1.02 EOS x10^3 (test code = 711-2) 0.10 10*3/uL 0.06-0.53 BASO x10^3 (test code = 704-7) 0.03 10*3/uL 0.01-0.09 Lab Interpretation (test code = 25886-0) [facility]normal [facility] (19491)2023-12-10 03:13:49* Test Item Value Reference Range Interpretation Comme nts NA (test code = 5526620094) 141 mmol/L 135-145 K (test code = 3801317589) 4.3 mmol/L 3.5-5.0 CL (test code = 4887854388) 107 mmol/L 98-108 CO2 TOTAL (test code = 7374427627) 26 mmol/L 23-31 AGAP (test code = 4965713462) 8 2-16 BUN (test code = 6144048021) 20 mg/dL 7-23 GLUCOSE (test code = 5015431029) 123 mg/dL 70-110 H CREATININE (test code = 2160-0) 0.95 mg/dL 0.60-1.25 TOTAL BILI (test code = 2782033761) 0.8 mg/dL 0.1-1.1 CALCIUM (test code = 4942894269) 9.0 mg/dL 8.6-10.6 T PROTEIN (test code = 7089879169) 8.4 g/dL 6.3-8.2 H ALBUMIN (test code = 2759452243) 4.3 g/dL 3.5-5.0 ALK PHOS (test code = 2394800739) 58 U/L 34-122 ALTv (test code = 1742-6) 33 U/L 5-50 AST(SGOT) (test code = 7979272463) 52 U/L 13-40 H eGFR (test code = 70415-3) 96.9 mL/min/1.73m2 CKD-EPI eGFR (2020). Assuming creatinine has been stable day-to-day for at least three months, the eGFR indicates Category G1 (>= 90 mL/min/1.73 m2) Lab Interpretation (test code = 29589-6) [facility]normal [facility] [id number] 03:12:08CT ABDOMEN PELVIS W CONTRAST HISTORY: 53 [...] TISSUES: No suspicious lytic or sclerotic bony lesions.[facility] BASIC METABOLIC PANEL (NA, K, CL, CO2, GLUCOSE, BUN, CREATININE, CA)2023-08-04 03:27:21* Test Item Value Reference Range Interpretation Comme nts NA (test code = 5215769492) 140 mmol/L 135-145 K (test code = 8775429892) 3.9 mmol/L 3.5-5.0 CL (test code = 8702635087) 104 mmol/L 98-108 CO2 TOTAL (test code = 0242713746) 28 mmol/L 23-31 AGAP (test code = 0371681121) 8 2-16 BUN (test code = 6431583434) 15 mg/dL 7-23 GLUCOSE (test code = 2720596542) 155 mg/dL 70-110 H CREATININE (test code = 5971405972) 1.37 mg/dL 0.60-1.25 H CALCIUM (test code = 0555066080) 9.5 mg/dL 8.6-10.6 eGFR (test code = 38713-2) 62.8 mL/min/1.73m2 CKD-EPI eGFR (2020). Assuming creatinine has been stable day-to-day for at least three months, the eGFR indicates Category G2 (60 - 89 mL/min/1.73 m2) Lab Interpretation (test code = 59353-8) [facility]normal [facility] WITH [id number] 03:12:39* Test Item Value Reference Range Interpretation Comme nts WBC (test code = 6690-2) 6.98 See_Comment [Automated Contractuallya Talenz] The system which generated this result transmitted reference range: 4.20 - 10.70 10*3/?L. The reference range was not used to interpret this result as normal/abnormal. RBC (test code = 789-8) 5.27 See_Comment [Automated Contractuallya Talenz] The system which generated this result transmitted [...] g/dL 31.2-35.0 H RDW-SD (test code = 51273-1) 38.1 fL 38.5-51.6 L RDW-CV (test code = 788-0) 12.3 % 12.1-15.4 PLT (test code = 777-3) 238 See_Comment [Automated messa ge] The system which generated this result transmitted reference range: 150 - 328 10*3/?L. The reference range was not used to interpret this result as normal/abnormal. MPV (test code = 37235-8) 9.8 fL 9.8-13.0 NRBC/100 WBC (test code = 5209134595) 0.0 See_Comment [Automated [employer] ssage] The system which generated this result transmitted reference range: 0.0 - 10.0 /100 WBCs. The reference range was not used to interpret this result as normal/abnormal. NRBC x10^3 (test code = 6670102081) See_Comment [Automated Contractuallya ge] The system which generated this result transmitted reference range: 10*3/?L. The reference range was not used to interpret this result as normal/abnormal. GRAN MAT (NEUT) % (test code = 770-8) 37.8 % IMM GRAN % (test code = 0545319150) 0.30 % LYMPH % (test code = 736-9) 52.7 % MONO % (test code = 5905-5) 7.7 % EOS % (test code = 713-8) 1.1 % BASO % (test code = 706-2) 0.4 % GRAN MAT x10^3(ANC) (test code = 1250407959) 2.63 10*3/uL 1.99-6.95 IMM GRAN x10^3 (test code = 4370981602) 0.00-0.06 LYMPH x10^3 (test code = 731-0) 3.68 10*3/uL 1.09-3.23 H MONO x10^3 (test code = 742-7) 0.54 10*3/uL 0.36-1.02 EOS x10^3 (test code = 711-2) 0.08 10*3/uL 0.06-0.53 BASO x10^3 (test code = 704-7) 0.03 10*3/uL 0.01-0.09 Lab Interpretation (test code = 61645-5) Abnormal [facility] Worth[facility]IN [id number] 17:24:34* Test Item Value Reference Range Interpretation Comme nts TROPONIN I (test code = 0071430995) 0.018 ng/mL <=0.034 KRYSTLE (test code = [...] of biotin. Lab Interpretation (test code = 55865-5) Normal [facility]2023-11-11 17:13:15* Test Item Value Reference Range Interpretation Comme nts MAGNESIUM (test code = 6035311262) 1.9 mg/dL 1.7-2.4 Lab Interpretation (test cod e = 65202-2) Normal [facility] MET[facility]OLIC PANEL (52111)2023-07-25 17:12:55* Test Item Value Reference Range Interpretation Comme nts NA (test code = 1441330745) 141 mmol/L 135-145 K (test code = 6998915068) 3.8 mmol/L 3.5-5.0 CL (test code = 4571250449) 106 mmol/L 98-108 CO2 TOTAL (test code = 0141036107) 27 mmol/L 23-31 AGAP (test code = 1619029594) 8 2-16 BUN (test code = 3756345241) 14 mg/dL 7-23 GLUCOSE (test code = 0441517745) 124 mg/dL 70-110 H CREATININE (test code = 2413522683) 0.93 mg/dL 0.60-1.25 TOTAL BILI (test code = 5299917081) 0.8 mg/dL 0.1-1.1 CALCIUM (test code = 4246052636) 9.3 mg/dL 8.6-10.6 T PROTEIN (test code = 0656795610) 8.2 g/dL 6.3-8.2 ALBUMIN (test code = 6010622983) 4.4 g/dL 3.5-5.0 ALK PHOS (test code = 9235872524) 49 U/L 34-122 ALTv (test code = 1742-6) 20 U/L 5-50 AST(SGOT) (test code = 7481985246) 28 U/L 13-40 eGFR (test code = 13243-5) 100.0 mL/min/1.73m2 CKD-EPI eGFR (2020). Assuming creatinine has been stable day-to-day for at least three months, the eGFR indicates Category G1 (>= 90 mL/min/1.73 m2) Lab Interpretation (test code = 45628-6) [facility]normal [facility]2023-[facility]-11 17:12:35* Test Item Value Reference Range Interpretation Comme nts LIPASE (test code = 7018176381) 109 U/L 0-220 Lab Interpretation (test cod e = 91944-9) Normal [facility] WITH [id number] 16:59:59* Test Item Value Reference Range Interpretation Comme nts WBC (test code = 6690-2) 5.17 See_Comment [Automated Contractuallya Talenz] The system which generated this result transmitted reference range: 4.20 - 10.70 10*3/?L. The reference range was not used to interpret this result as normal/abnormal. RBC (test code = 789-8) 5.04 See_Comment [Automated Contractuallya ge] The system which generated this result [...] g/dL 31.2-35.0 H RDW-SD (test code = 66237-0) 39.2 fL 38.5-51.6 RDW-CV (test code = 788-0) 12.5 % 12.1-15.4 PLT (test code = 777-3) 207 See_Comment [Automated Contractuallya ge] The system which generated this result transmitted reference range: 150 - 328 10*3/?L. The reference range was not used to interpret this result as normal/abnormal. MPV (test code = 40297-9) 10.0 fL 9.8-13.0 NRBC/100 WBC (test code = 4884504812) 0.0 See_Comment [Automated Nuserv ssage] The system which generated this result transmitted reference range: 0.0 - 10.0 /100 WBCs. The reference range was not used to interpret this result as normal/abnormal. NRBC x10^3 (test code = 4580908065) See_Comment [Automated Contractuallya ge] The system which generated this result transmitted reference range: 10*3/?L. The reference range was not used to interpret this result as normal/abnormal. GRAN MAT (NEUT) % (test code = 770-8) 45.8 % IMM GRAN % (test code = 6365518455) 0.20 % LYMPH % (test code = 736-9) 42.9 % MONO % (test code = 5905-5) 9.9 % EOS % (test code = 713-8) 0.8 % BASO % (test code = 706-2) 0.4 % GRAN MAT x10^3(ANC) (test code = 5891453329) 2.37 10*3/uL 1.99-6.95 IMM GRAN x10^3 (test code = 1414822524) 0.00-0.06 LYMPH x10^3 (test code = 731-0) 2.22 10*3/uL 1.09-3.23 MONO x10^3 (test code = 742-7) 0.51 10*3/uL 0.36-1.02 EOS x10^3 (test code = 711-2) 0.04 10*3/uL 0.06-0.53 L BASO x10^3 (test code = 704-7) 0.01-0.09 Lab Interpretation (test code = 47485-5) Abnormal [facility] WorthLIPID PANEL (58233)(TOTAL CHOLESTEROL, TRIGLYCERIDES, HDL)2023-07-24 21:48:18* Test Item Value Reference Range Interpretation Comme nts CHOL (test code = 9725666717) 220 mg/dL 120-200 H HDL (test code = 7309246626) 31 mg/dL >=40 L HDLC RATIO (test code = 0687211952) 7.1 <=5.0 H TRIG (test code = 2218401084) 134 mg/dL 30-170 LDL CHOL (test code = 50728-5) 162 mg/dL <=160 H VLDL (test code = 8278808533) 27 mg/dL 5-60 Lab Interpretation (test cod e = 87823-6) Abnormal [facility] Worth[facility] Metabolic [id number] 20:48:07* Test Item Value Reference Range Interpretation Comme nts NA (test code = 7684170875) 141 mmol/L 135-145 K (test code = 0946605203) 3.8 mmol/L 3.5-5.0 CL (test code = 8636393996) 103 mmol/L 98-108 CO2 TOTAL (test code = 7627447636) 29 mmol/L 23-31 AGAP (test code = 0268651320) 9 2-16 BUN (test code = 6452969822) 14 mg/dL 7-23 GLUCOSE (test code = 6820902734) 102 mg/dL 70-110 CREATININE (test code = 4293906907) 0.85 mg/dL 0.60-1.25 TOTAL BILI (test code = 0269984623) 1.2 mg/dL 0.1-1.1 H CALCIUM (test code = 9127979192) 10.0 mg/dL 8.6-10.6 T PROTEIN (test code = 1315796386) 8.9 g/dL 6.3-8.2 H ALBUMIN (test code = 3931895728) 5.0 g/dL 3.5-5.0 ALK PHOS (test code = 3815182329) 52 U/L 34-122 ALTv (test code = 1742-6) 22 U/L 5-50 AST(SGOT) (test code = 3887940970) 45 U/L 13-40 H eGFR (test code = 02039-7) 105.9 mL/min/1.73m2 CKD-EPI eGFR (2020). Assuming creatinine has been stable day-to-day for at least three months, the eGFR indicates Category G1 (>= 90 mL/min/1.73 m2) Lab Interpretation (test code = 50266-9) Abnormal [facility] Worth[facility], [id number] 20:48:07* Test Item Value Reference Range Interpretation Comme nts LIPASE (test code = 0375661714) 134 U/L 0-220 Lab Interpretation (test cod e = 49914-4) Normal [facility] with Grvjnfkgacsn6598-27-07 20:20:02* Test Item Value Reference Range Interpretation Comme nts WBC (test code = 6690-2) 6.91 See_Comment [Automated Lucky Pai] The system which generated this result transmitted reference range: 4.20 - 10.70 10*3/?L. The reference range was not used to interpret this result as normal/abnormal. RBC (test code = 789-8) 5.49 See_Comment [Automated Contractuallya Talenz] The system which generated this result transmitted [...] 34.7 g/dL 31.2-35.0 RDW-SD (test code = 39782-6) 40.0 fL 38.5-51.6 RDW-CV (test code = 788-0) 12.7 % 12.1-15.4 PLT (test code = 777-3) 228 See_Comment [Automated messa ge] The system which generated this result transmitted reference range: 150 - 328 10*3/?L. The reference range was not used to interpret this result as normal/abnormal. MPV (test code = 86765-1) 9.5 fL 9.8-13.0 L NRBC/100 WBC (test code = 6347250227) 0.0 See_Comment [Automated [employer]erv ssage] The system which generated this result transmitted reference range: 0.0 - 10.0 /100 WBCs. The reference range was not used to interpret this result as normal/abnormal. NRBC x10^3 (test code = 8022371759) See_Comment [Automated messa ge] The system which generated this result transmitted reference range: 10*3/?L. The reference range was not used to interpret this result as normal/abnormal. GRAN MAT (NEUT) % (test code = 770-8) 46.9 % IMM GRAN % (test code = 8493545760) 0.30 % LYMPH % (test code = 736-9) 42.3 % MONO % (test code = 5905-5) 9.8 % EOS % (test code = 713-8) 0.4 % BASO % (test code = 706-2) 0.3 % GRAN MAT x10^3(ANC) (test code = 5454862169) 3.24 10*3/uL 1.99-6.95 IMM GRAN x10^3 (test code = 8824632086) 0.00-0.06 LYMPH x10^3 (test code = 731-0) 2.92 10*3/uL 1.09-3.23 MONO x10^3 (test code = 742-7) 0.68 10*3/uL 0.36-1.02 EOS x10^3 (test code = 711-2) 0.03 10*3/uL 0.06-0.53 L BASO x10^3 (test code = 704-7) 0.01-0.09 Lab Interpretation (test code = 17848-1) Abnormal [facility] W/SYXY6960-31-44 08:28:00 [facility] 1970 Sex: M PatientName: NOAH PUTNAM Unit No: [id number] EXAMS: CPT CODE: [id number] CT ABD PELVIS W/CONT 29230 EXAM: - CT ABD PELVIS W/CONT INDICATION: [...] extraluminal fluid. IMPRESSION: 1. No acute abnormality. [facility] NAME: NOAH PUTNAM PHYS: [place] [address] : 1970 AGE: 52 SEX: M LOC: MiniERS PHONE #: [phone] EXAM DATE: 07/23/2023 STATUS: REG ER FAX #: [phone] RAD #: D/C DT PAGE 1 Signed Report (CONTINUED) Patient Name: NOAH PUTNAM Unit No: [id number] EXAMS: CPT CODE: [id number] CT ABD PELVIS W/CONT 93826 (Continued) at 0828 Reported and signed by: Kiara Meza MD CC: Jessie Paul MD Technologist: Jovanni GREEN CTDI: DLP: Trnscrpt: 07/23/2023 (0828) t.[id number].[id number] [facility] NAME: NOAH PUTNAM PHYS: [place] [address] : 1970 AGE: 52 SEX: M LOC: MiniERS PHONE #: [phone] EXAM DATE: 07/23/2023 STATUS: [facility] ER FAX #: [phone] RAD #: D/C DT PAGE 2 Signed Report Patient Name: NOAH PUTNAM Unit No: [id number] EXAMS: CPT CODE: [id number] CT ABD PELVIS W/CONT 54060 (Continued) Orig Print D/T: S: 07/23/2023 (0831) [facility] NAME: NOAH PUTNAM PHYS: [place] [address] : 1970 AGE: 52 SEX: M LOC: Z.ERS PHONE #: [phone] EXAM DATE: 07/23/2023 STATUS: REG ER FAX #: [phone] RAD #: D/C DT PAGE 3 Signed ReportURINALYSIS [id number] 06:32:00* Test Item Value Reference Range Interpretation [...] UA NITRITE DIPSTICK (test co de = [place]) NEGATIVE NEGATIVE UA LEUKOCYTE ESTERASE DIPSTI CK (test code = LEUU) NEGATIVE /mm3 NEGATIVE SOURCE OF URINE: CLEAN CATCHUA [id number] 06:32:00* Test Item Value Reference Range Interpretation Comme nts UA RBC (test code = RBCU) 3-5 RBC/HPF 0-3 A UA WBC (test code = XWBCU) 0-3 WBC/HPF 0-5 UA EPITHELIAL CELLS (test co de = EPIU) RARE EPI/HPF FEW UA BACTERIA (test code = XBACU) FEW NONE UA MUCUS (test code = MUCU) MODERATE #/LPF NONE A SOURCE OF URINE: CLEAN CATCHBASIC METABOLIC [id number] 06:31:00* Test Item Value Reference Range Interpretation [...] CA) 9.5 MG/DL 8.4-10.2 N HEPATIC FUNCTION [id number] 06:31:00* Test Item Value Reference Range Interpretation Comme nts TOTAL PROTEIN (test code = PROT) 9.0 G/DL 6.2-7.6 H Ortho Clinical D iagnFirst Class EV Conversions has made us aware of newinformation regarding the potential interference ofEltrombopag (a bone marrow stimulant used to treatthrombocytonmenia and aplastic anemia) with specific assayson the [place] [employer] of which Total Protein is one of thoseassays performed in our lab.Interference testing performed at [facility] determined thatEltrombopag does interfere with Vitros Total [...] code = ALKP) 57 UNITS/L 38-126 N [id number] 06:31:00* Test Item Value Reference Range Interpretation Comme [facility] LIPASE (test code = LIP) 94 UNITS/L 23-300 N [id number] 06:31:00* Test Item Value Reference Range Interpretation Comme [facility] TROPONIN-I (test code = TROPI) 0.019 NG/ML 0.012-0.033 N PROTHROMBIN [id number] 06:07:00* Test Item Value Reference Range Interpretation Comme [facility] PROTHROMBIN TIME PATIENT (test code = PTP) [...] systemic embolism. 3.0 - 4.5 CBC W/O [id number] 06:00:00* Test Item Value Reference Range Interpretation [...] = NRBC#) 0.00 K/mm3 0.0-0.1 N Troponin [id number] 02:46:51* Test Item Value Reference Range Interpretation Comme nts TROPONIN I (test code = 9902869935) 0.017 ng/mL <=0.034 KRYSTLE (test code = [...] of biotin. Lab Interpretation (test code = 09128-2) [id number]28* Test Item Value Reference Range Interpretation Comme nts NA (test code = 9135032491) 138 mmol/L 135-145 K (test code = 7467640041) 3.7 mmol/L 3.5-5.0 CL (test code = 2593424478) 106 mmol/L 98-108 CO2 TOTAL (test code = 9976480861) 24 mmol/L 23-31 AGAP (test code = 3061070833) 8 2-16 BUN (test code = 3209471895) 11 mg/dL 7-23 GLUCOSE (test code = 7088322485) 165 mg/dL 70-110 H CREATININE (test code = 8022048724) 0.89 mg/dL 0.60-1.25 TOTAL BILI (test code = 3263769806) 0.2 mg/dL 0.1-1.1 CALCIUM (test code = 2648234720) 9.3 mg/dL 8.6-10.6 T PROTEIN (test code = 1024946550) 7.0 g/dL 6.3-8.2 ALBUMIN (test code = 8190338078) 4.0 g/dL 3.5-5.0 ALK PHOS (test code = 3130523956) 59 U/L 34-122 ALTv (test code = 1742-6) 23 U/L 5-50 AST(SGOT) (test code = 8295864750) 27 U/L 13-40 eGFR (test code = 0915992176) 90.5 mL/min/1.73m2 KRYSTLE (test code = KRYSTLE) [...] imaging tests). Lab Interpretation (test code = 89097-5) Abnormal [facility] with [id number] 02:26:10* Test Item Value Reference Range Interpretation Comme nts WBC (test code = 6690-2) 5.78 See_Comment [Automated [employer]] The system which generated this result transmitted reference range: 4.20 - 10.70 10*3/?L. The reference range was not used to interpret this result as normal/abnormal. RBC (test code = 789-8) 4.59 See_Comment [Automated [employer]] The system which generated this result transmitted [...] g/dL 31.2-35.0 H RDW-SD (test code = 98530-3) 38.6 fL 38.5-51.6 RDW-CV (test code = 788-0) 12.6 % 12.1-15.4 PLT (test code = 777-3) 200 See_Comment [Automated [employer]] The system which generated this result transmitted reference range: 150 - 328 10*3/?L. The reference range was not used to interpret this result as normal/abnormal. MPV (test code = 88783-9) 9.6 fL 9.8-13.0 L NRBC/100 WBC (test code = 7156430957) 0.0 See_Comment [Automated [employer]] The system which generated this result transmitted reference range: 0.0 - 10.0 /100 WBCs. The reference range was not used to interpret this result as normal/abnormal. NRBC x10^3 (test code = 1457532707) See_Comment [Automated [employer]] The system which generated this result transmitted reference range: 10*3/?L. The reference range was not used to interpret this result as normal/abnormal. GRAN MAT (NEUT) % (test code = 770-8) 36.8 % IMM GRAN % (test code = 2467658368) 0.20 % LYMPH % (test code = 736-9) 54.7 % MONO % (test code = 5905-5) 7.1 % EOS % (test code = 713-8) 0.9 % BASO % (test code = 706-2) 0.3 % GRAN MAT x10^3(ANC) (test code = 5381998573) 2.13 10*3/uL 1.99-6.95 IMM GRAN x10^3 (test code = 8417688343) 0.00-0.06 LYMPH x10^3 (test code = 731-0) 3.16 10*3/uL 1.09-3.23 MONO x10^3 (test code = 742-7) 0.41 10*3/uL 0.36-1.02 EOS x10^3 (test code = 711-2) 0.05 10*3/uL 0.06-0.53 L BASO x10^3 (test code = 704-7) 0.01-0.09 Lab Interpretation (test code = 12647-4) [facility] (86109[facility]2023-07-03 10:47:01* Test Item Value Reference Range Interpretation Comme nts NA (test code = 1162352054) 138 mmol/L 135-145 K (test code = 8316666514) 4.5 mmol/L 3.5-5.0 Slight hemolysis CL (test code = 5072085610) 103 mmol/L 98-108 CO2 TOTAL (test code = 4336363561) 23 mmol/L 23-31 AGAP (test code = 0522201910) 12 2-16 BUN (test code = 3063710465) 16 mg/dL 7-23 Slight hemolysis GLUCOSE (test code = 7926931007) 142 mg/dL 70-110 H CREATININE (test code = 0654156415) 0.99 mg/dL 0.60-1.25 TOTAL BILI (test code = 7132085130) 1.2 mg/dL 0.1-1.1 H CALCIUM (test code = 6146889908) 9.6 mg/dL 8.6-10.6 T PROTEIN (test code = 7074300064) 8.1 g/dL 6.3-8.2 ALBUMIN (test code = 9687232004) 4.6 g/dL 3.5-5.0 ALK PHOS (test code = 7378907750) 51 U/L 34-122 Slight hemolysis ALTv (test code = 1742-6) 26 U/L 5-50 AST(SGOT) (test code = 1551283337) 32 U/L 13-40 Slight hemolysis eGFR (test code = 9654994384) 80.0 mL/min/1.73m2 KRYSTLE (test code = KRYSTLE) [...] imaging tests). Lab Interpretation (test code = 70189-9) [facility] 10:47:01* Test Item Value Reference Range Interpretation Comme nts LIPASE (test code = 1046468339) 955 U/L 0-220 H Lab Interpretation (test cod e = 93824-2) [facility]normal [facility] [id number] 10:27:34* Test Item Value Reference Range Interpretation Comme nts WBC (test code = 6690-2) 6.60 See_Comment [Automated Lucky Pai] The system which generated this result transmitted [...] 34.5 g/dL 31.2-35.0 RDW-SD (test code = 48431-9) 39.4 fL 38.5-51.6 RDW-CV (test code = 788-0) 12.3 % 12.1-15.4 PLT (test code = 777-3) 226 See_Comment [Automated messa ge] The system which generated this result transmitted reference range: 150 - 328 10*3/?L. The reference range was not used to interpret this result as normal/abnormal. MPV (test code = 77560-5) 9.6 fL 9.8-13.0 L NRBC/100 WBC (test code = 1302851620) 0.0 See_Comment [Automated [employer]us[employer] ssage] The system which generated this result transmitted reference range: 0.0 - 10.0 /100 WBCs. The reference range was not used to interpret this result as normal/abnormal. NRBC x10^3 (test code = 5071593843) See_Comment [Automated Contractuallya ge] The system which generated this result transmitted reference range: 10*3/?L. The reference range was not used to interpret this result as normal/abnormal. GRAN MAT (NEUT) % (test code = 770-8) 54.9 % IMM GRAN % (test code = 5619062564) 0.20 % LYMPH % (test code = 736-9) 36.2 % MONO % (test code = 5905-5) 7.9 % EOS % (test code = 713-8) 0.5 % BASO % (test code = 706-2) 0.3 % GRAN MAT x10^3(ANC) (test code = 5090354635) 3.63 10*3/uL 1.99-6.95 IMM GRAN x10^3 (test code = 3436906908) 0.00-0.06 LYMPH x10^3 (test code = 731-0) 2.39 10*3/uL 1.09-3.23 MONO x10^3 (test code = 742-7) 0.52 10*3/uL 0.36-1.02 EOS x10^3 (test code = 711-2) 0.03 10*3/uL 0.06-0.53 L BASO x10^3 (test code = 704-7) 0.01-0.09 Lab Interpretation (test code = 83408-1) Abnormal [facility] W/[id number] 00:06:00 [facility] : 1970 Sex: M Patient Name: NOAH PUTNAM Unit No: [id number] EXAMS: CPT CODE: [id number] CT ABD PELVIS W/CONT 82345 Reason: diffuse abd pain CT Scan of [...] Jennifer Bass MD CC: Jessie Gleason DO; [facility] Technologist: Cory Romero CT Trscrpt Dt/ ([id number] Orig Print D/T: S: 07/02/2023 (0009) CTDI: DLP: [place] FSED NAME: NOAH PUTNAM [address] [place] [address] PHYS: MANOLO. - Jessie Gleason [address] : 1970 AGE: 52 SEX: M [place], [place] [address] LOC: D.PER PHONE #: [phone] EXAM DATE: 07/01/2023 STATUS: REG ER FAX #: RAD NO: DC Dt: PAGE 1 Signed ReportTROP-I HIGH [id number] 23:55:00* Test Item Value Reference Range Interpretation [...] troponin from other clinical conditions, the Fourth Sharon Definition of Myocardial Infarction stresses clinical assessment and demonstration of a rise and/or fall in serial troponin results above the upper reference limit.Results of this assay method may be falsely depressed orelevated if patient is taking high doses of Biotin. BASIC METABOLIC [id number] 23:55:00* Test Item Value Reference Range Interpretation [...] CA) 9.3 MG/DL 8.7-10.5 N HEPATIC FUNCTION [id number] 23:55:00* Test Item Value Reference Range Interpretation [...] code = ALKP) 60 Units/L 50-136 N [id number] 23:55:00* Test Item Value Reference Range Interpretation Comme nts LIPASE (test code = LIP) 259 U/L 16-77 H New Reference Ranges of 16-77 U/L please reviewrevised from 73-393 U/L on 06/30/2023 CBC W/AUTO [id number] 23:24:00* Test Item Value Reference Range Interpretation [...] = BA#) 0.02 x10 3/uL 0.0-0.2 N [id number] 12:29:00* Test Item Value Reference Range Interpretation Comme [facility] LIPASE (test code = LIP) 73 Units/L 73-393 N [id number] 17:24:56* Test Item Value Reference Range Interpretation Comme [facility] LIPASE (test code = 4270280494) 283 U/L 0-220 H Lab Interpretation (test cod e = 28099-3) Abnormal [facility] METABOLIC PANEL (NA, K, CL, CO2, GLUCOSE, BUN, CREATININE, CA)2023-04-22 17:24:35* Test Item Value Reference Range Interpretation Comme [facility] NA (test code = 6259972858) 139 mmol/L 135-145 K (test code = 2789931320) 4.0 mmol/L 3.5-5.0 CL (test code = 2920500202) 106 mmol/L 98-108 CO2 TOTAL (test code = 1746921551) 25 mmol/L 23-31 AGAP (test code = 9445340562) 8 2-16 BUN (test code = 2187471061) 21 mg/dL 7-23 GLUCOSE (test code = 1156524448) 110 mg/dL 70-110 CREATININE (test code = 5517918213) 1.06 mg/dL 0.60-1.25 CALCIUM (test code = 2123462513) 8.1 mg/dL 8.6-10.6 L eGFR (test code = 4977029946) 74.0 mL/min/1.73m2 KRYSTLE (test code = KRYSTLE) [...] imaging tests). Lab Interpretation (test code = 56959-8) [facility]normal [facility] [id number] 13:57:28* Test Item Value Reference Range Interpretation Comme nts CK (test code = 8029093304) 635 U/L 33-194 H Lab Interpretation (test cod e = 82721-3) [facility]normal [facility] (NA, K, CL, CO2, GLUCOSE, BUN, CREATININE, CA)2023-04-22 13:23:02* Test Item Value Reference Range Interpretation Comme nts NA (test code = 6996007688) 141 mmol/L 135-145 K (test code = 2275424483) 4.0 mmol/L 3.5-5.0 CL (test code = 5857050948) 107 mmol/L 98-108 CO2 TOTAL (test code = 7060798864) 27 mmol/L 23-31 AGAP (test code = 1310305849) 7 2-16 BUN (test code = 4877341532) 22 mg/dL 7-23 GLUCOSE (test code = 9440851319) 94 mg/dL 70-110 CREATININE (test code = 8898940973) 1.26 mg/dL 0.60-1.25 H CALCIUM (test code = 5966413720) 8.3 mg/dL 8.6-10.6 L eGFR (test code = 7690605736) 60.6 mL/min/1.73m2 KRYSTLE (test code = KRYSTLE) [...] imaging tests). Lab Interpretation (test code = 91706-2) [facility]normal [facility] 13:22:41* Test Item Value Reference Range Interpretation Comme nts LIPASE (test code = 7116791226) 897 U/L 0-220 H Lab Interpretation (test cod e = 29327-2) Abnormal [facility]. METABOLIC PANEL (64612)2023-04-22 09:43:42* Test Item Value Reference Range Interpretation Comme nts NA (test code = 1068648519) 140 mmol/L 135-145 K (test code = 3841322794) 3.7 mmol/L 3.5-5.0 CL (test code = 1817677385) 103 mmol/L 98-108 CO2 TOTAL (test code = 9198765634) 24 mmol/L 23-31 AGAP (test code = 6777897722) 13 2-16 BUN (test code = 8890579070) 24 mg/dL 7-23 H GLUCOSE (test code = 0139948545) 114 mg/dL 70-110 H CREATININE (test code = 6673811468) 1.42 mg/dL 0.60-1.25 H TOTAL BILI (test code = 6184456941) 0.9 mg/dL 0.1-1.1 CALCIUM (test code = 4176042410) 9.5 mg/dL 8.6-10.6 T PROTEIN (test code = 3993964774) 9.2 g/dL 6.3-8.2 H ALBUMIN (test code = 5307031928) 4.9 g/dL 3.5-5.0 ALK PHOS (test code = 4079935152) 66 U/L 34-122 ALTv (test code = 1742-6) 25 U/L 5-50 AST(SGOT) (test code = 1960831788) 37 U/L 13-40 eGFR (test code = 3849188630) 52.8 mL/min/1.73m2 KRYSTLE (test code = KRYSTLE) [...] imaging tests). Lab Interpretation (test code = 42836-8) Abnormal [facility] WITH [id number] 09:33:37* Test Item Value Reference Range Interpretation Comme nts WBC (test code = 6690-2) 8.53 See_Comment [Automated Lucky Pai] The system which generated this result transmitted reference range: 4.20 - 10.70 10*3/?L. The reference range was not used to interpret this result as normal/abnormal. RBC (test code = 789-8) 5.60 See_Comment H [UiTV] The system which generated this result transmitted [...] g/dL 31.2-35.0 H RDW-SD (test code = 59152-7) 40.1 fL 38.5-51.6 RDW-CV (test code = 788-0) 13.0 % 12.1-15.4 PLT (test code = 777-3) 267 See_Comment [Automated messa ge] The system which generated this result transmitted reference range: 150 - 328 10*3/?L. The reference range was not used to interpret this result as normal/abnormal. MPV (test code = 91755-1) 9.6 fL 9.8-13.0 L NRBC/100 WBC (test code = 2477067852) 0.0 See_Comment [Automated me ssage] The system which generated this result transmitted reference range: 0.0 - 10.0 /100 WBCs. The reference range was not used to interpret this result as normal/abnormal. NRBC x10^3 (test code = 0808596092) See_Comment [Automated messa ge] The system which generated this result transmitted reference range: 10*3/?L. The reference range was not used to interpret this result as normal/abnormal. GRAN MAT (NEUT) % (test code = 770-8) 44.5 % IMM GRAN % (test code = 8887189132) 0.20 % LYMPH % (test code = 736-9) 43.4 % MONO % (test code = 5905-5) 10.7 % EOS % (test code = 713-8) 0.8 % BASO % (test code = 706-2) 0.4 % GRAN MAT x10^3(ANC) (test code = 8183300903) 3.80 10*3/uL 1.99-6.95 IMM GRAN x10^3 (test code = 5169856328) 0.00-0.06 LYMPH x10^3 (test code = 731-0) 3.70 10*3/uL 1.09-3.23 H MONO x10^3 (test code = 742-7) 0.91 10*3/uL 0.36-1.02 EOS x10^3 (test code = 711-2) 0.07 10*3/uL 0.06-0.53 BASO x10^3 (test code = 704-7) 0.03 10*3/uL 0.01-0.09 Lab Interpretation (test code = 47466-3) Abnormal [facility] [id number] 13:23:31* Test Item Value Reference Range Interpretation Comme nts TROPONIN I (test code = 6196192133) 0.020 ng/mL <=0.034 KRYSTLE (test code = [...] of biotin. Lab Interpretation (test code = 13609-8) Normal [facility] [id number] 13:23:31* Test Item Value Reference Range Interpretation Comme nts TROPONIN I (test code = 5140009269) 0.020 ng/mL <=0.034 KRYSTLE (test code = [...] of biotin. Lab Interpretation (test code = 06732-6) Normal [facility]. METABOLIC PANEL (67020)2023-04-16 12:58:04* Test Item Value Reference Range Interpretation Comme nts NA (test code = 9408998179) 142 mmol/L 135-145 K (test code = 0178677888) 4.0 mmol/L 3.5-5.0 CL (test code = 1949383394) 105 mmol/L 98-108 CO2 TOTAL (test code = 7263861336) 28 mmol/L 23-31 AGAP (test code = 9673163575) 9 2-16 BUN (test code = 1067175883) 11 mg/dL 7-23 GLUCOSE (test code = 6399562618) 115 mg/dL 70-110 H CREATININE (test code = 3241297746) 0.85 mg/dL 0.60-1.25 TOTAL BILI (test code = 0694512655) 0.4 mg/dL 0.1-1.1 CALCIUM (test code = 8637606207) 9.2 mg/dL 8.6-10.6 T PROTEIN (test code = 6988677373) 7.6 g/dL 6.3-8.2 ALBUMIN (test code = 5166445590) 4.4 g/dL 3.5-5.0 ALK PHOS (test code = 0249166547) 52 U/L 34-122 ALTv (test code = 1742-6) 23 U/L 5-50 AST(SGOT) (test code = 3416079799) 33 U/L 13-40 eGFR (test code = 0516448064) 95.4 mL/min/1.73m2 KRYSTLE (test code = KRYSTLE) [...] imaging tests). Lab Interpretation (test code = 84569-5) [facility] 12:58:04* Test Item Value Reference Range Interpretation Comme nts LIPASE (test code = 1855184752) 492 U/L 0-220 H Lab Interpretation (test cod e = 84030-6) [facility]normal [facility] (70186)2023-04-16 12:58:04* Test Item Value Reference Range Interpretation Comme nts NA (test code = 6062638914) 142 mmol/L 135-145 K (test code = 8804223890) 4.0 mmol/L 3.5-5.0 CL (test code = 5052282321) 105 mmol/L 98-108 CO2 TOTAL (test code = 8824405744) 28 mmol/L 23-31 AGAP (test code = 8492541706) 9 2-16 BUN (test code = 1877723079) 11 mg/dL 7-23 GLUCOSE (test code = 8808426242) 115 mg/dL 70-110 H CREATININE (test code = 8940716961) 0.85 mg/dL 0.60-1.25 TOTAL BILI (test code = 1108199635) 0.4 mg/dL 0.1-1.1 CALCIUM (test code = 6094535306) 9.2 mg/dL 8.6-10.6 T PROTEIN (test code = 3430520295) 7.6 g/dL 6.3-8.2 ALBUMIN (test code = 0064219804) 4.4 g/dL 3.5-5.0 ALK PHOS (test code = 3704195221) 52 U/L 34-122 ALTv (test code = 1742-6) 23 U/L 5-50 AST(SGOT) (test code = 5302994385) 33 U/L 13-40 eGFR (test code = 5928930089) 95.4 mL/min/1.73m2 KRYSTLE (test code = KRYSTLE) [...] imaging tests). Lab Interpretation (test code = 79325-1) [facility] 12:58:04* Test Item Value Reference Range Interpretation Comme nts LIPASE (test code = 1583858792) 492 U/L 0-220 H Lab Interpretation (test cod e = 46308-0) [facility]normal [facility] [id number] 12:50:01* Test Item Value Reference Range Interpretation Comme nts WBC (test code = 6690-2) 6.75 See_Comment [Automated Lucky Pai] The system which generated this result transmitted reference range: 4.20 - 10.70 10*3/?L. The reference range was not used to interpret this result as normal/abnormal. RBC (test code = 789-8) 5.08 See_Comment [Automated Contractuallya ge] The system which generated this result [...] 34.9 g/dL 31.2-35.0 RDW-SD (test code = 26455-2) 41.4 fL 38.5-51.6 RDW-CV (test code = 788-0) 13.2 % 12.1-15.4 PLT (test code = 777-3) 219 See_Comment [Automated Contractuallya ge] The system which generated this result transmitted reference range: 150 - 328 10*3/?L. The reference range was not used to interpret this result as normal/abnormal. MPV (test code = 87315-9) 9.5 fL 9.8-13.0 L NRBC/100 WBC (test code = 2666350832) 0.0 See_Comment [Automated [employer]userv ssage] The system which generated this result transmitted reference range: 0.0 - 10.0 /100 WBCs. The reference range was not used to interpret this result as normal/abnormal. NRBC x10^3 (test code = 6045838468) See_Comment [Automated Contractuallya ge] The system which generated this result transmitted reference range: 10*3/?L. The reference range was not used to interpret this result as normal/abnormal. GRAN MAT (NEUT) % (test code = 770-8) 46.9 % IMM GRAN % (test code = 8298728026) 0.10 % LYMPH % (test code = 736-9) 43.4 % MONO % (test code = 5905-5) 8.4 % EOS % (test code = 713-8) 0.9 % BASO % (test code = 706-2) 0.3 % GRAN MAT x10^3(ANC) (test code = 0498868117) 3.16 10*3/uL 1.99-6.95 IMM GRAN x10^3 (test code = 7898548140) 0.00-0.06 LYMPH x10^3 (test code = 731-0) 2.93 10*3/uL 1.09-3.23 MONO x10^3 (test code = 742-7) 0.57 10*3/uL 0.36-1.02 EOS x10^3 (test code = 711-2) 0.06 10*3/uL 0.06-0.53 BASO x10^3 (test code = 704-7) 0.01-0.09 Lab Interpretation (test code = 29435-9) Abnormal [facility] WITH [id number] 12:50:01* Test Item Value Reference Range Interpretation [...] 34.9 g/dL 31.2-35.0 RDW-SD (test code = 81495-7) 41.4 fL 38.5-51.6 RDW-CV (test code = 788-0) 13.2 % 12.1-15.4 PLT (test code = 777-3) 219 See_Comment [Automated messa ge] The system which generated this result transmitted reference range: 150 - 328 10*3/?L. The reference range was not used to interpret this result as normal/abnormal. MPV (test code = 46470-8) 9.5 fL 9.8-13.0 L NRBC/100 WBC (test code = 0125217439) 0.0 See_Comment [Automated me ssage] The system which generated this result transmitted reference range: 0.0 - 10.0 /100 WBCs. The reference range was not used to interpret this result as normal/abnormal. NRBC x10^3 (test code = 5763517640) See_Comment [Automated messa ge] The system which generated this result transmitted reference range: 10*3/?L. The reference range was not used to interpret this result as normal/abnormal. GRAN MAT (NEUT) % (test code = 770-8) 46.9 % IMM GRAN % (test code = 8246622768) 0.10 % LYMPH % (test code = 736-9) 43.4 % MONO % (test code = 5905-5) 8.4 % EOS % (test code = 713-8) 0.9 % BASO % (test code = 706-2) 0.3 % GRAN MAT x10^3(ANC) (test code = 5065598534) 3.16 10*3/uL 1.99-6.95 IMM GRAN x10^3 (test code = 0990282595) 0.00-0.06 LYMPH x10^3 (test code = 731-0) 2.93 10*3/uL 1.09-3.23 MONO x10^3 (test code = 742-7) 0.57 10*3/uL 0.36-1.02 EOS x10^3 (test code = 711-2) 0.06 10*3/uL 0.06-0.53 BASO x10^3 (test code = 704-7) 0.01-0.09 Lab Interpretation (test code = 93722-2) Abnormal [facility] GLUCOSE (AUTOMATED)2023-02-13 21:02:35* Test Item Value Reference Range Interpretation Comme nts POCT GLU (test code = 0558750019) 118 mg/dL 70-110 H Lab Interpretation (test cod e = 39952-4) Abnormal [facility] WITH [id number] 05:51:48* Test Item Value Reference Range Interpretation [...] 34.4 g/dL 31.2-35.0 RDW-SD (test code = 76970-0) 38.5 fL 38.5-51.6 RDW-CV (test code = 788-0) 12.5 % 12.1-15.4 PLT (test code = 777-3) 216 See_Comment [Automated messa ge] The system which generated this result transmitted reference range: 150 - 328 10*3/?L. The reference range was not used to interpret this result as normal/abnormal. MPV (test code = 69302-3) 10.0 fL 9.8-13.0 NRBC/100 WBC (test code = 0184826829) 0.0 See_Comment [Automated Nuserv ssage] The system which generated this result transmitted reference range: 0.0 - 10.0 /100 WBCs. The reference range was not used to interpret this result as normal/abnormal. NRBC x10^3 (test code = 9214935111) See_Comment [Automated messa ge] The system which generated this result transmitted reference range: 10*3/?L. The reference range was not used to interpret this result as normal/abnormal. SEG % (test code = 68281-4) 36 % 33-76 LYMPH % (test code = 54491-2) 48 % 14-54 MONO % (test code = 85980-6) 13 % 0-4 H EOS % (test code = 28901-1) 3 % 0-3 ANC (test code = 753-4) 2.75 10*3/uL 1.99-6.95 Lab Interpretation (test code = 95089-9) [facility] (31642)2022-12-09 05:24:19* Test Item Value Reference Range Interpretation Comme nts NA (test code = 3787749314) 139 mmol/L 135-145 K (test code = 0780779733) 3.8 mmol/L 3.5-5.0 CL (test code = 4968381892) 105 mmol/L 98-108 CO2 TOTAL (test code = 6647331548) 24 mmol/L 23-31 AGAP (test code = 4169664278) 10 2-16 BUN (test code = 5511313865) 11 mg/dL 7-23 GLUCOSE (test code = 5454732572) 115 mg/dL 70-110 H CREATININE (test code = 1048567818) 0.93 mg/dL 0.60-1.25 TOTAL BILI (test code = 5534897620) 0.8 mg/dL 0.1-1.1 CALCIUM (test code = 3170605654) 9.3 mg/dL 8.6-10.6 T PROTEIN (test code = 8786916013) 8.0 g/dL 6.3-8.2 ALBUMIN (test code = 3063063708) 4.5 g/dL 3.5-5.0 ALK PHOS (test code = 1028768703) 50 U/L 34-122 ALTv (test code = 1742-6) 22 U/L 5-50 AST(SGOT) (test code = 4499800501) 36 U/L 13-40 eGFR (test code = 1928054098) 86.0 mL/min/1.73m2 KRYSTLE (test code = KRYSTLE) [...] imaging tests). Lab Interpretation (test code = 48107-7) [facility] 05:24:18* Test Item Value Reference Range Interpretation Comme nts LIPASE (test code = 2686926695) 271 U/L 0-220 H Lab Interpretation (test cod e = 23956-3) [facility]normal [facility] with Mnkywzamabii0159-04-68 22:09:52* Test Item Value Reference Range Interpretation Comme nts WBC (test code = 6690-2) See_Comment [Automated Lucky Pai] The system which generated this result transmitted reference range: 4.20 - 10.70 10*3/?L. The reference range was not used to interpret this result as normal/abnormal. RBC (test code = 789-8) See_Comment [Automated Lucky Pai] The system which generated this result transmitted [...] g/dL 31.2-35.0 H RDW-SD (test code = 36225-4) 39.2 fL 38.5-51.6 RDW-CV (test code = 788-0) 12.9 % 12.1-15.4 PLT (test code = 777-3) See_Comment [Automated messa ge] The system which generated this result transmitted reference range: 150 - 328 10*3/?L. The reference range was not used to interpret this result as normal/abnormal. MPV (test code = 16993-4) 9.0 fL 9.8-13.0 L NRBC/100 WBC (test code = 2309013921) See_Comment [Automated Nuserv ssage] The system which generated this result transmitted reference range: 0.0 - 10.0 /100 WBCs. The reference range was not used to interpret this result as normal/abnormal. NRBC x10^3 (test code = 8241315713) See_Comment [Automated Contractuallya ge] The system which generated this result transmitted reference range: 10*3/?L. The reference range was not used to interpret this result as normal/abnormal. GRAN MAT (NEUT) % (test code = 770-8) 35.3 % IMM GRAN % (test code = 7814630652) 0.00 % LYMPH % (test code = 736-9) 56.0 % MONO % (test code = 5905-5) 7.9 % EOS % (test code = 713-8) 0.4 % BASO % (test code = 706-2) 0.4 % GRAN MAT x10^3(ANC) (test code = 6535210186) 1.87 10*3/uL 1.99-6.95 L IMM GRAN x10^3 (test code = 3580424948) 0.00-0.06 LYMPH x10^3 (test code = 731-0) 2.97 10*3/uL 1.09-3.23 MONO x10^3 (test code = 742-7) 0.42 10*3/uL 0.36-1.02 EOS x10^3 (test code = 711-2) 0.06-0.53 L BASO x10^3 (test code = 704-7) 0.01-0.09 Lab Interpretation (test code = 28568-1) Abnormal [facility] METABOLIC PANEL (NA, K, CL, CO2, GLUCOSE, BUN, CREATININE, CA)2022-10-12 00:25:13* Test Item Value Reference Range Interpretation Comme nts NA (test code = 4972809965) 136 mmol/L 135-145 K (test code = 0315403432) 3.5 mmol/L 3.5-5.0 CL (test code = 2170829242) 103 mmol/L 98-108 CO2 TOTAL (test code = 1100730557) 26 mmol/L 23-31 AGAP (test code = 6151596734) 2-16 BUN (test code = 3449834210) 14 mg/dL 7-23 GLUCOSE (test code = 8205427763) 157 mg/dL 70-110 H CREATININE (test code = 6617026722) 0.80 mg/dL 0.60-1.25 CALCIUM (test code = 3091309196) 8.4 mg/dL 8.6-10.6 L eGFR (test code = 4758979513) mL/min/1.73m2 KRYSTLE (test code = KRYSTLE) Association [...] imaging tests). Lab Interpretation (test code = 65327-0) [facility] (ALB,T.PRO,BILI T,BU/BC,ALT,AST,ALK PHOS)2022-10-12 00:25:13* Test Item Value Reference Range Interpretation Comme nts TOTAL BILI (test code = 3223314058) 1.2 mg/dL 0.1-1.1 H BILI UNCON (test code = 0859312487) 1.0 mg/dL 0.1-1.1 BILI CONJ (test code = 0245385200) 0.0 mg/dL 0.0-0.3 T PROTEIN (test code = 5875822801) 7.1 g/dL 6.3-8.2 ALBUMIN (test code = 5748096507) 4.0 g/dL 3.5-5.0 ALK PHOS (test code = 3110151804) 59 U/L 34-122 ALTv (test code = 1742-6) 38 U/L 5-50 AST(SGOT) (test code = 1576720804) 61 U/L 13-40 H Lab Interpretation (test cod e = 39314-9) [facility]normal [facility] ([facility] Only)2022-10-11 21:35:47* Test Item Value Reference Range Interpretation Comme nts ABO & RH (test code = 20) O Positive Performed at [facility] B Laboratory Services - [facility] Blood [address] [id number] Free: [phone] No. [id number] [facility] WorthType and Screen - ONCE [id number] 21:25:51* Test Item Value Reference Range Interpretation Comme nts ABO & RH (test code = 20) O POSITIVE Performed at [facility] Laboratory Services - [facility] Blood [address] [id number] Free: [phone] No. [id number] IAT (test code = 1185) Negative Performed at [facility] Laboratory Services - [facility] Blood [address] [address]Jvou Free: [phone] No. [id number] [facility] WorthCBC WITH [id number] 20:47:43* Test Item Value Reference Range Interpretation [...] g/dL 31.2-35.0 H RDW-SD (test code = 38422-6) 41.1 fL 38.5-51.6 RDW-CV (test code = 788-0) 13.2 % 12.1-15.4 PLT (test code = 777-3) See_Comment [Automated messa ge] The system which generated this result transmitted reference range: 150 - 328 10*3/?L. The reference range was not used to interpret this result as normal/abnormal. MPV (test code = 92741-2) 9.5 fL 9.8-13.0 L NRBC/100 WBC (test code = 5372273573) See_Comment [Automated [employer] ssage] The system which generated this result transmitted reference range: 0.0 - 10.0 /100 WBCs. The reference range was not used to interpret this result as normal/abnormal. NRBC x10^3 (test code = 7648810333) See_Comment [Automated Contractuallya ge] The system which generated this result transmitted reference range: 10*3/?L. The reference range was not used to interpret this result as normal/abnormal. GRAN MAT (NEUT) % (test code = 770-8) 38.2 % IMM GRAN % (test code = 8798558930) 0.00 % LYMPH % (test code = 736-9) 53.7 % MONO % (test code = 5905-5) 7.5 % EOS % (test code = 713-8) 0.3 % BASO % (test code = 706-2) 0.3 % GRAN MAT x10^3(ANC) (test code = 4361306798) 2.46 10*3/uL 1.99-6.95 IMM GRAN x10^3 (test code = 6145464454) 0.00-0.06 LYMPH x10^3 (test code = 731-0) 3.46 10*3/uL 1.09-3.23 H MONO x10^3 (test code = 742-7) 0.48 10*3/uL 0.36-1.02 EOS x10^3 (test code = 711-2) 0.06-0.53 L BASO x10^3 (test code = 704-7) 0.01-0.09 Lab Interpretation (test code = 87775-1) [facility]TOTAL CHOLESTEROL, TRIGLYCERIDES, HDL)2022-10-11 20:32:44* Test Item Value Reference Range Interpretation Comme nts CHOL (test code = 7901602239) 195 mg/dL 120-200 HDL (test code = 5515074131) 36 mg/dL See_Comment L [Automated messa ge] The system which generated this result transmitted reference range: >=40. The reference range was not used to interpret this result as normal/abnormal. HDLC RATIO (test code = 6118122981) See_Comment H [Automated Lucky Pai] The system which generated this result transmitted reference range: <=5.0. The reference range was not used to interpret this result as normal/abnormal. TRIG (test code = 8414747017) 84 mg/dL 30-170 LDL CHOL (test code = 48729-3) 142 mg/dL See_Comment [Automated Lucky Pai] The system which generated this result transmitted reference range: <=160. The reference range was not used to interpret this result as normal/abnormal. VLDL (test code = 9503331476) 17 mg/dL 5-60 Lab Interpretation (test code = 85892-5) [facility]normal [facility] [id number] 14:23:55* Test Item Value Reference Range Interpretation Comme nts NT-proBNP (test code = 9480133153) See_Comment [Automated message] The system which generated this result transmitted reference range: <=125. The reference range was not used to interpret this result as normal/abnormal. KRYSTLE (test code = KRYSTLE) Biotin has been reported to cause a negative bias, interpret results relative to patient's use of biotin. Lab Interpretation (test code = 61921-4) Normal [facility]ACT[facility] PARTIAL THRMPLAS [id number] 14:23:25* Test Item Value Reference Range Interpretation Comme nts APTT Patient (test code = 3173-2) See_Comment [Automated message] The system which generated this result transmitted reference range: 23 - 38 Seconds. The reference range was not used to interpret this result as normal/abnormal. KRYSTLE (test code = KRYSTLE) The [facility] patient population mean normal value for aPTT is 30 seconds. Lab Interpretation (test code = 99834-8) Normal [facility]2023-[facility]28 14:23:05* Test Item Value Reference Range Interpretation Comme nts LIPASE (test code = 7761578188) 502 U/L 0-220 H Lab Interpretation (test cod e = 56189-2) [facility]normal [facility] Worth[facility] METABOLIC PANEL (38934)2022-10-11 14:23:05* Test Item Value Reference Range Interpretation Comme nts NA (test code = 6605489757) 139 mmol/L 135-145 K (test code = 3912413453) 5.0 mmol/L 3.5-5.0 Slight hemolysis CL (test code = 4740525190) 103 mmol/L 98-108 CO2 TOTAL (test code = 3710232636) 28 mmol/L 23-31 AGAP (test code = 7030790085) 2-16 BUN (test code = 0951384828) 17 mg/dL 7-23 Slight hemolysis GLUCOSE (test code = 4920086679) 103 mg/dL 70-110 CREATININE (test code = 3540771232) 0.80 mg/dL 0.60-1.25 TOTAL BILI (test code = 2437664205) 1.6 mg/dL 0.1-1.1 H CALCIUM (test code = 5955018145) 9.0 mg/dL 8.6-10.6 T PROTEIN (test code = 6448824324) 8.4 g/dL 6.3-8.2 H ALBUMIN (test code = 5843630143) 4.8 g/dL 3.5-5.0 ALK PHOS (test code = 8428159518) 57 U/L 34-122 Slight hemolysis ALTv (test code = 1742-6) 49 U/L 5-50 AST(SGOT) (test code = 3581379531) 77 U/L 13-40 H Slight hemolysis eGFR (test code = 6901660928) mL/min/1.73m2 KRYSTLE (test code = KRYSTLE) Association [...] imaging tests). Lab Interpretation (test code = 49480-7) [facility]normal [facility] WorthTR[facility] [id number] 14:23:05* Test Item Value Reference Range Interpretation Comments TROPONIN I (test code = 0060294448) 0.018 ng/mL See_Comment [Automated message] The system [...] of biotin. Lab Interpretation (test code = 34669-9) Normal [facility] WorthPROTHROMBIN TIME / [id number] 14:20:24* Test Item Value Reference Range Interpretation Comme nts PROTIME PATIENT (test code = 5964-2) See_Comment [Automated Lucky Pai] The system which generated this result transmitted reference range: 12.0 - 14.7 Seconds. The reference range was not used to interpret this result as normal/abnormal. INR (test code = 6301-6) Normal INR <1.1; Warfarin Therapeutic range 2.0 to 3.0 or 2.5 to 3.5, depending upon the indications. Lab Interpretation (test code = 89768-9) Normal [facility] WITH [id number] 13:55:05* Test Item Value Reference Range Interpretation [...] 34.9 g/dL 31.2-35.0 RDW-SD (test code = 80190-2) 40.4 fL 38.5-51.6 RDW-CV (test code = 788-0) 13.0 % 12.1-15.4 PLT (test code = 777-3) See_Comment [Automated messa ge] The system which generated this result transmitted reference range: 150 - 328 10*3/?L. The reference range was not used to interpret this result as normal/abnormal. MPV (test code = 41835-7) 9.1 fL 9.8-13.0 L NRBC/100 WBC (test code = 6525380322) See_Comment [Automated Nus[employer] ssage] The system which generated this result transmitted reference range: 0.0 - 10.0 /100 WBCs. The reference range was not used to interpret this result as normal/abnormal. NRBC x10^3 (test code = 3958978612) See_Comment [Automated messa ge] The system which generated this result transmitted reference range: 10*3/?L. The reference range was not used to interpret this result as normal/abnormal. GRAN MAT (NEUT) % (test code = 770-8) 53.2 % IMM GRAN % (test code = 1792066767) 0.10 % LYMPH % (test code = 736-9) 36.6 % MONO % (test code = 5905-5) 9.3 % EOS % (test code = 713-8) 0.5 % BASO % (test code = 706-2) 0.3 % GRAN MAT x10^3(ANC) (test code = 1652789823) 4.25 10*3/uL 1.99-6.95 IMM GRAN x10^3 (test code = 8785092159) 0.00-0.06 LYMPH x10^3 (test code = 731-0) 2.92 10*3/uL 1.09-3.23 MONO x10^3 (test code = 742-7) 0.74 10*3/uL 0.36-1.02 EOS x10^3 (test code = 711-2) 0.04 10*3/uL 0.06-0.53 L BASO x10^3 (test code = 704-7) 0.01-0.09 Lab Interpretation (test code = 42219-5) [facility]normal [facility] WorthCOMP. METABOLIC PANEL (78275)2022-06-09 13:23:22* Test Item Value Reference Range Interpretation Comme nts NA (test code = 7858881028) 138 mmol/L 135-145 K (test code = 6937275375) 4.5 mmol/L 3.5-5 CL (test code = 9785602330) 106 mmol/L 98-108 CO2 TOTAL (test code = 4332526613) 24 mmol/L 23-31 AGAP (test code = 8245410537) 2-16 BUN (test code = 4653230395) 18 mg/dL 7-23 GLUCOSE (test code = 2770085768) 97 mg/dL 70-110 CREATININE (test code = 7236196362) 0.98 mg/dL 0.6-1.25 TOTAL BILI (test code = 0039596665) 0.5 mg/dL 0.1-1.1 CALCIUM (test code = 0404149812) 9.3 mg/dL 8.6-10.6 T PROTEIN (test code = 3990782371) 7.3 g/dL 6.3-8.2 ALBUMIN (test code = 5768978456) 4.5 g/dL 3.5-5 ALK PHOS (test code = 7601382879) 65 U/L 34-122 ALTv (test code = 1742-6) 27 U/L 5-50 AST(SGOT) (test code = 4945793316) 33 U/L 13-40 eGFR (test code = 2581410729) mL/min/1.73m2 KRYSTLE (test code = KRYSTLE) Association [...] or urine or abnormalities in imaging tests). [facility] 13:23:01* Test Item Value Reference Range Interpretation Comme nts LIPASE (test code = 7434439841) 596 U/L 0-220 H Lab Interpretation (test cod e = 85909-3) Abnormal [facility] WITH [id number] 13:09:00* Test Item Value Reference Range Interpretation [...] g/dL 31.2-35 H RDW-SD (test code = 31567-7) 38.3 fL 38.5-51.6 L RDW-CV (test code = 788-0) 12.3 % 12.1-15.4 PLT (test code = 777-3) See_Comment [Automated messa ge] The system which generated this result transmitted reference range: 150 - 328 10*3/?L. The reference range was not used to interpret this result as normal/abnormal. MPV (test code = 49167-0) 9.2 fL 9.8-13 L NRBC/100 WBC (test code = 8395029994) See_Comment [Automated [employer] ssage] The system which generated this result transmitted reference range: 0.0 - 10.0 /100 WBCs. The reference range was not used to interpret this result as normal/abnormal. NRBC x10^3 (test code = 4458596244) See_Comment [Automated messa ge] The system which generated this result transmitted reference range: 10*3/?L. The reference range was not used to interpret this result as normal/abnormal. GRAN MAT (NEUT) % (test code = 770-8) 47.3 % IMM GRAN % (test code = 0452533617) 0.30 % LYMPH % (test code = 736-9) 43.8 % MONO % (test code = 5905-5) 7.8 % EOS % (test code = 713-8) 0.5 % BASO % (test code = 706-2) 0.3 % GRAN MAT x10^3(ANC) (test code = 3777131649) 3.04 10*3/uL 1.99-6.95 IMM GRAN x10^3 (test code = 4166181423) 0-0.06 LYMPH x10^3 (test code = 731-0) 2.81 10*3/uL 1.09-3.23 MONO x10^3 (test code = 742-7) 0.50 10*3/uL 0.36-1.02 EOS x10^3 (test code = 711-2) 0.03 10*3/uL 0.06-0.53 L BASO x10^3 (test code = 704-7) 0.01-0.09 Lab Interpretation (test code = 16850-9) Abnormal [facility] METABOLIC PANEL (NA, K, CL, CO2, GLUCOSE, BUN, CREATININE, CA)2021-11-01 10:40:12* Test Item Value Reference Range Interpretation Comme nts NA (test code = 1944118186) 136 mmol/L 135-145 K (test code = 2447049791) 4.2 mmol/L 3.5-5.0 CL (test code = 5851521136) 104 mmol/L 98-108 CO2 TOTAL (test code = 9759769507) 31 mmol/L 23-31 AGAP (test code = 7606782877) 2-16 L BUN (test code = 6030633548) 15 mg/dL 7-23 GLUCOSE (test code = 4323298384) 91 mg/dL 70-110 CREATININE (test code = 8633483843) 0.96 mg/dL 0.60-1.25 CALCIUM (test code = 4611252863) 8.5 mg/dL 8.6-10.6 L eGFR (test code = 5362855489) mL/min/1.73m2 KRYSTLE (test code = KRYSTLE) Association [...] imaging tests). Lab Interpretation (test code = 52206-7) [facility]normal [facility]20[facility]-18 10:40:12* Test Item Value Reference Range Interpretation Comme nts MAGNESIUM (test code = 0326297404) 1.7 mg/dL 1.7-2.4 Lab Interpretation (test cod e = 82460-0) Normal [facility]2022-[facility]-18 10:39:52* Test Item Value Reference Range Interpretation Comme nts PHOSPHORUS (test code = 3623197231) 4.4 mg/dL 2.5-5.0 Lab Interpretation (test cod e = 66956-8) Normal [facility] WorthCB WITH [id number] 10:25:11* Test Item Value Reference Range Interpretation [...] 34.3 g/dL 31.2-35.0 RDW-SD (test code = 76804-8) 38.5 fL 38.5-51.6 RDW-CV (test code = 788-0) 12.3 % 12.1-15.4 PLT (test code = 777-3) See_Comment [Automated messa ge] The system which generated this result transmitted reference range: 150 - 328 10*3/?L. The reference range was not used to interpret this result as normal/abnormal. MPV (test code = 82665-8) 9.6 fL 9.8-13.0 L NRBC/100 WBC (test code = 1957692124) See_Comment [Automated [employer] ssage] The system which generated this result transmitted reference range: 0.0 - 10.0 /100 WBCs. The reference range was not used to interpret this result as normal/abnormal. NRBC x10^3 (test code = 5896027128) <0.01 See_Comment [Automated messa ge] The system which generated this result transmitted reference range: 10*3/?L. The reference range was not used to interpret this result as normal/abnormal. GRAN MAT (NEUT) % (test code = 770-8) 49.5 % IMM GRAN % (test code = 0037650148) 0.30 % LYMPH % (test code = 736-9) 39.4 % MONO % (test code = 5905-5) 9.7 % EOS % (test code = 713-8) 0.8 % BASO % (test code = 706-2) 0.3 % GRAN MAT x10^3(ANC) (test code = 0960876651) 3.13 10*3/uL 1.99-6.95 IMM GRAN x10^3 (test code = 1369908121) <0.03 0.00-0.06 LYMPH x10^3 (test code = 731-0) 2.49 10*3/uL 1.09-3.23 MONO x10^3 (test code = 742-7) 0.61 10*3/uL 0.36-1.02 EOS x10^3 (test code = 711-2) 0.05 10*3/uL 0.06-0.53 L BASO x10^3 (test code = 704-7) <0.03 0.01-0.09 Lab Interpretation (test code = 90758-6) Abnormal [facility]-TERMINAL [id number] 17:32:56* Test Item Value Reference Range Interpretation Comme nts NT-proBNP (test code = 2731014491) 13 pg/mL See_Comment [Automated message] The system which generated this result transmitted reference range: <=125. The reference range was not used to interpret this result as normal/abnormal. KRYSTLE (test code = KRYSTLE) Biotin has been reported to cause a negative bias, interpret results relative to patient's use of biotin. Lab Interpretation (test code = 12117-2) Normal [facility] [id number] 10:50:49* Test Item Value Reference Range Interpretation Comme nts NT-proBNP (test code = 1346019617) <11 See_Comment [Automated message] The system which generated this result transmitted reference range: <=125 pg/mL. The reference range was not used to interpret this result as normal/abnormal. KRYSTLE (test code = KRYSTLE) Biotin has been reported to cause a negative bias, interpret results relative to patient's use of biotin. Lab Interpretation (test code = 29999-1) Normal [facility] [id number] 10:36:56* Test Item Value Reference Range Interpretation Comments TROPONIN I (test code = 4860168817) 0.004 ng/mL See_Comment [Automated message] The system [...] of biotin. Lab Interpretation (test code = 24898-7) Normal [facility] WorthCOMP. METABOLIC PANEL (52427)2021-10-31 10:33:50* Test Item Value Reference Range Interpretation Comme nts NA (test code = 1378875705) 139 mmol/L 135-145 K (test code = 7431608066) 4.0 mmol/L 3.5-5.0 CL (test code = 1972552822) 109 mmol/L 98-108 H CO2 TOTAL (test code = 1571091605) 27 mmol/L 23-31 AGAP (test code = 5829583456) 2-16 BUN (test code = 1887774859) 16 mg/dL 7-23 GLUCOSE (test code = 2015741883) 97 mg/dL 70-110 CREATININE (test code = 5500205755) 1.00 mg/dL 0.60-1.25 TOTAL BILI (test code = 7838547310) 1.0 mg/dL 0.1-1.1 CALCIUM (test code = 8361297631) 8.7 mg/dL 8.6-10.6 T PROTEIN (test code = 0646064966) 7.9 g/dL 6.3-8.2 ALBUMIN (test code = 0988749352) 4.4 g/dL 3.5-5.0 ALK PHOS (test code = 4222411693) 60 U/L 34-122 ALTv (test code = 1742-6) 56 U/L 5-50 H AST(SGOT) (test code = 8488271488) 49 U/L 13-40 H eGFR (test code = 5423433519) mL/min/1.73m2 KRYSTLE (test code = RKYSTLE) Association of Glomerular Filtration Rate (GFR) and [...] imaging tests). Lab Interpretation (test code = 11462-9) Abnormal [facility] WorthMagnesium [id number] 10:25:32* Test Item Value Reference Range Interpretation Comme nts MAGNESIUM (test code = 4796787322) 1.8 mg/dL 1.7-2.4 Lab Interpretation (test cod e = 53858-0) Normal [facility]ORUS2022-02-17 10:25:12* Test Item Value Reference Range Interpretation Comme nts PHOSPHORUS (test code = 4589234497) 3.9 mg/dL 2.5-5.0 Lab Interpretation (test cod e = 05238-8) Normal [facility] WorthCREATINE [id number] 10:24:52* Test Item Value Reference Range Interpretation Comme nts CK (test code = 2089639729) 215 U/L 33-194 H Lab Interpretation (test cod e = 84994-0) Abnormal [facility] WorthCBC with [id number] 10:18:09* Test Item Value Reference Range Interpretation [...] 33.9 g/dL 31.2-35.0 RDW-SD (test code = 86413-4) 41.3 fL 38.5-51.6 RDW-CV (test code = 788-0) 13.0 % 12.1-15.4 PLT (test code = 777-3) See_Comment [Automated messa ge] The system which generated this result transmitted reference range: 150 - 328 10*3/?L. The reference range was not used to interpret this result as normal/abnormal. MPV (test code = 45634-5) 10.0 fL 9.8-13.0 NRBC/100 WBC (test code = 6099734382) See_Comment [Automated [employer] ssage] The system which generated this result transmitted reference range: 0.0 - 10.0 /100 WBCs. The reference range was not used to interpret this result as normal/abnormal. NRBC x10^3 (test code = 7450511147) <0.01 See_Comment [Automated Contractuallya ge] The system which generated this result transmitted reference range: 10*3/?L. The reference range was not used to interpret this result as normal/abnormal. GRAN MAT (NEUT) % (test code = 770-8) 46.4 % IMM GRAN % (test code = 0744466143) 0.20 % LYMPH % (test code = 736-9) 44.0 % MONO % (test code = 5905-5) 8.3 % EOS % (test code = 713-8) 0.7 % BASO % (test code = 706-2) 0.4 % GRAN MAT x10^3(ANC) (test code = 0199939105) 3.73 10*3/uL 1.99-6.95 IMM GRAN x10^3 (test code = 8123502504) <0.03 0.00-0.06 LYMPH x10^3 (test code = 731-0) 3.55 10*3/uL 1.09-3.23 H MONO x10^3 (test code = 742-7) 0.67 10*3/uL 0.36-1.02 EOS x10^3 (test code = 711-2) 0.06 10*3/uL 0.06-0.53 BASO x10^3 (test code = 704-7) 0.03 10*3/uL 0.01-0.09 Lab Interpretation (test code = 43894-6) Abnormal [facility] WorthPROTHROMBIN TIME / [id number] 10:18:09* Test Item Value Reference Range Interpretation Comme nts PROTIME PATIENT (test code = 5964-2) See_Comment [Automated Contractuallya ge] The system which generated this result transmitted reference range: 12.0 - 14.7 Seconds. The reference range was not used to interpret this result as normal/abnormal. INR (test code = 6301-6) Normal INR <1.1; Warfarin Therapeutic range 2.0 to 3.0 or 2.5 to 3.5, depending upon the indications. Lab Interpretation (test code = 61787-3) Normal [facility] WorthTROPONIN [id number] 07:43:50* Test Item Value Reference Range Interpretation Comments TROPONIN I (test code = 7546849014) 0.005 ng/mL See_Comment [Automated message] The system [...] of biotin. Lab Interpretation (test code = 49989-7) Normal [facility] WorthCOM. METABOLIC PANEL (34690)2021-10-30 20:56:25* Test Item Value Reference Range Interpretation Comme nts NA (test code = 5420438494) 139 mmol/L 135-145 K (test code = 6584884745) 4.8 mmol/L 3.5-5.0 CL (test code = 6181733176) 105 mmol/L 98-108 CO2 TOTAL (test code = 4524881678) 26 mmol/L 23-31 AGAP (test code = 5385093018) 2-16 BUN (test code = 4308898994) 18 mg/dL 7-23 GLUCOSE (test code = 4876584572) 135 mg/dL 70-110 H CREATININE (test code = 5965682830) 0.98 mg/dL 0.60-1.25 TOTAL BILI (test code = 7999583447) 0.8 mg/dL 0.1-1.1 CALCIUM (test code = 3891037166) 10.0 mg/dL 8.6-10.6 T PROTEIN (test code = 4107219116) 10.3 g/dL 6.3-8.2 H ALBUMIN (test code = 7184685927) 5.5 g/dL 3.5-5.0 H ALK PHOS (test code = 6187194656) 74 U/L 34-122 ALTv (test code = 1742-6) 69 U/L 5-50 H AST(SGOT) (test code = 8079322068) 59 U/L 13-40 H eGFR (test code = 6313069227) mL/min/1.73m2 KRYSTLE (test code = KRYSTLE) Association [...] imaging tests). Lab Interpretation (test code = 87920-5) [facility]normal [facility] WorthL[facility]ASE2022-[facility]-16 20:56:05* Test Item Value Reference Range Interpretation Comme nts LIPASE (test code = 6104870425) 70 U/L 0-220 Lab Interpretation (test cod e = 61922-5) Normal [facility] WITH [id number] 20:34:20* Test Item Value Reference Range Interpretation [...] 34.3 g/dL 31.2-35.0 RDW-SD (test code = 16395-9) 40.6 fL 38.5-51.6 RDW-CV (test code = 788-0) 12.8 % 12.1-15.4 PLT (test code = 777-3) See_Comment [Automated messa ge] The system which generated this result transmitted reference range: 150 - 328 10*3/?L. The reference range was not used to interpret this result as normal/abnormal. MPV (test code = 67589-6) 9.2 fL 9.8-13.0 L NRBC/100 WBC (test code = 2076762446) See_Comment [Automated me ssage] The system which generated this result transmitted reference range: 0.0 - 10.0 /100 WBCs. The reference range was not used to interpret this result as normal/abnormal. NRBC x10^3 (test code = 8367990136) <0.01 See_Comment [Automated messa ge] The system which generated this result transmitted reference range: 10*3/?L. The reference range was not used to interpret this result as normal/abnormal. GRAN MAT (NEUT) % (test code = 770-8) 67.1 % IMM GRAN % (test code = 5566778707) 0.40 % LYMPH % (test code = 736-9) 24.5 % MONO % (test code = 5905-5) 7.6 % EOS % (test code = 713-8) 0.1 % BASO % (test code = 706-2) 0.3 % GRAN MAT x10^3(ANC) (test code = 8932594471) 7.34 10*3/uL 1.99-6.95 H IMM GRAN x10^3 (test code = 1903400040) 0.04 10*3/uL 0.00-0.06 LYMPH x10^3 (test code = 731-0) 2.67 10*3/uL 1.09-3.23 MONO x10^3 (test code = 742-7) 0.83 10*3/uL 0.36-1.02 EOS x10^3 (test code = 711-2) <0.03 0.06-0.53 L BASO x10^3 (test code = 704-7) 0.03 10*3/uL 0.01-0.09 Lab Interpretation (test code = 73335-2) [facility]normal [facility] WorthCREATINE [id number] 05:55:54* Test Item Value Reference Range Interpretation Comme nts CK (test code = 0199942803) 3682 U/L 33-194 H Lab Interpretation (test cod e = 40346-4) Abnormal [facility]CREV[facility] [id number] 05:55:54* Test Item Value Reference Range Interpretation Comme nts CK (test code = 4127062726) 3682 U/L 33-194 H Lab Interpretation (test cod e = 46586-1) [facility]normal [facility] WorthBASI METABOLIC PANEL (NA, K, CL, CO2, GLUCOSE, BUN, CREATININE, CA)2021-05-24 05:02:27* Test Item Value Reference Range Interpretation Comme nts NA (test code = 6940069516) 137 mmol/L 135-145 K (test code = 0487041964) 3.6 mmol/L 3.5-5.0 CL (test code = 2103601413) 105 mmol/L 98-108 CO2 TOTAL (test code = 7577241709) 23 mmol/L 23-31 AGAP (test code = 4037027714) 2-16 BUN (test code = 6025050126) 26 mg/dL 7-23 H GLUCOSE (test code = 6825545703) 95 mg/dL 70-110 CREATININE (test code = 7269781772) 1.31 mg/dL 0.60-1.25 H CALCIUM (test code = 9849442373) 8.6 mg/dL 8.6-10.6 eGFR (test code = 3009285350) mL/min/1.73m2 KRYSTLE (test code = KRYSTLE) Association [...] imaging tests). Lab Interpretation (test code = 03769-2) Abnormal [facility] METABOLIC PANEL (NA, K, CL, CO2, GLUCOSE, BUN, CREATININE, CA)2021-05-24 05:02:27* Test Item Value Reference Range Interpretation Comme nts NA (test code = 0293604240) 137 mmol/L 135-145 K (test code = 7321993746) 3.6 mmol/L 3.5-5.0 CL (test code = 5905403282) 105 mmol/L 98-108 CO2 TOTAL (test code = 2452573325) 23 mmol/L 23-31 AGAP (test code = 1357687131) 2-16 BUN (test code = 6232990894) 26 mg/dL 7-23 H GLUCOSE (test code = 9358803663) 95 mg/dL 70-110 CREATININE (test code = 2104884562) 1.31 mg/dL 0.60-1.25 H CALCIUM (test code = 9925454598) 8.6 mg/dL 8.6-10.6 eGFR (test code = 9079248185) mL/min/1.73m2 KRYSTLE (test code = KRYSTLE) Association [...] imaging tests). Lab Interpretation (test code = 32615-0) Abnormal [facility] [id number] 02:56:10* Test Item Value Reference Range Interpretation Comments TROPONIN I (test code = 9326247014) 0.004 ng/mL See_Comment [Automated message] The system [...] of biotin. Lab Interpretation (test code = 71113-4) Normal [facility] [id number] 02:56:10* Test Item Value Reference Range Interpretation Comments TROPONIN I (test code = 2063634392) 0.004 ng/mL See_Comment [Automated message] The system [...] of biotin. Lab Interpretation (test code = 19142-7) [id number] 02:41:54* Test Item Value Reference Range Interpretation Comme nts CK (test code = 8595942144) 4607 U/L 33-194 H Lab Interpretation (test cod e = 64741-5) [facility] [id number] 02:41:54* Test Item Value Reference Range Interpretation Comme nts CK (test code = 1242044905) 4607 U/L 33-194 H Lab Interpretation (test cod e = 77188-9) [id number] 02:33:28* Test Item Value Reference Range Interpretation Comme nts NT-proBNP (test code = 5873065529) 14 pg/mL See_Comment [Automated message] The system which generated this result transmitted reference range: <=125. The reference range was not used to interpret this result as normal/abnormal. KRYSTLE (test code = KRYSTLE) Biotin has been reported to cause a negative bias, interpret results relative to patient's use of biotin. Lab Interpretation (test code = 73038-2) Normal [facility] [id number] 02:33:28* Test Item Value Reference Range Interpretation Comme nts NT-proBNP (test code = 2368265864) 14 pg/mL See_Comment [Automated message] The system which generated this result transmitted reference range: <=125. The reference range was not used to interpret this result as normal/abnormal. KRYSTLE (test code = KRYSTLE) Biotin has been reported to cause a negative bias, interpret results relative to patient's use of biotin. Lab Interpretation (test code = 65553-0) Normal [facility] 02:29:35* Test Item Value Reference Range Interpretation Comme nts APPEARANCE (test code = 6877266567) Clear Clear COLOR (test code = 0249349250) Yellow Yellow PH (test code = 8521008750) 4.8-8.0 SP GRAVITY (test code = 5830336101) 1.003-1.030 GLU U QUAL (test code = 9726740136) Normal Normal BLOOD (test code = 4739182940) Negative Negative KETONES (test code = 8445969556) Negative Negative PROTEIN (test code = 2887-8) Negative Negative UROBILIN (test code = 8339370578) 2.0 mg/dL Normal A BILIRUBIN (test code = 7009701368) Negative Negative NITRITE (test code = 1556722781) Negative Negative LEUK MO (test code = 4985121594) Negative Negative RBC/HPF (test code = 2596716420) See_Comment [Automated Contractuallya ge] The system which generated this result transmitted reference range: 0 - 3 HPF. The reference range was not used to interpret this result as normal/abnormal. WBC/HPF (test code = 1012966823) See_Comment [Automated Contractuallya ge] The system which generated this result transmitted reference range: 0 - 5 HPF. The reference range was not used to interpret this result as normal/abnormal. BACTERIA (test code = 8538568917) Negative Negative MUCOUS (test code = 2985105464) Slight Negative LPF A SQ EPITH (test code = 9419762545) <1 HPF Lab Interpretation (test code = 50782-7) [facility] 02:29:35* Test Item Value Reference Range Interpretation Comme nts APPEARANCE (test code = 9231644507) Clear Clear COLOR (test code = 1177866555) Yellow Yellow PH (test code = 0916988142) 4.8-8.0 SP GRAVITY (test code = 8946261164) 1.003-1.030 GLU U QUAL (test code = 3371466375) Normal Normal BLOOD (test code = 5364588323) Negative Negative KETONES (test code = 4666373968) Negative Negative PROTEIN (test code = 2887-8) Negative Negative UROBILIN (test code = 5945270186) 2.0 mg/dL Normal A BILIRUBIN (test code = 6658093681) Negative Negative NITRITE (test code = 0262405425) Negative Negative LEUK MO (test code = 6751830928) Negative Negative RBC/HPF (test code = 8751641213) See_Comment [Automated Contractuallya ge] The system which generated this result transmitted reference range: 0 - 3 HPF. The reference range was not used to interpret this result as normal/abnormal. WBC/HPF (test code = 2235438561) See_Comment [Automated Contractuallya ge] The system which generated this result transmitted reference range: 0 - 5 HPF. The reference range was not used to interpret this result as normal/abnormal. BACTERIA (test code = 9663063300) Negative Negative MUCOUS (test code = 2061101336) Slight Negative LPF A SQ EPITH (test code = 9132123854) <1 HPF Lab Interpretation (test code = 31731-5) Abnormal [facility]. METABOLIC PANEL (47376)2021-05-24 02:25:07* Test Item Value Reference Range Interpretation Comme nts NA (test code = 6582885761) 137 mmol/L 135-145 K (test code = 0830955413) 3.1 mmol/L 3.5-5.0 L CL (test code = 7938931878) 102 mmol/L 98-108 CO2 TOTAL (test code = 5903198944) 22 mmol/L 23-31 L AGAP (test code = 7349348390) 2-16 BUN (test code = 9121404167) 28 mg/dL 7-23 H GLUCOSE (test code = 0902020161) 132 mg/dL 70-110 H CREATININE (test code = 2169201182) 1.77 mg/dL 0.60-1.25 H TOTAL BILI (test code = 0945016316) 1.0 mg/dL 0.1-1.1 CALCIUM (test code = 9603990108) 9.4 mg/dL 8.6-10.6 T PROTEIN (test code = 2829944097) 9.4 g/dL 6.3-8.2 H ALBUMIN (test code = 7719396353) 5.0 g/dL 3.5-5.0 ALK PHOS (test code = 6292180678) 79 U/L 34-122 ALTv (test code = 1742-6) 112 U/L 5-50 H AST(SGOT) (test code = 5791857843) 152 U/L 13-40 H eGFR (test code = 6790005652) mL/min/1.73m2 KRYSTLE (test code = KRYSTLE) Association [...] imaging tests). Lab Interpretation (test code = 39408-6) [facility]normal [facility] MET[facility]OLIC PANEL (94429)2021-05-24 02:25:07* Test Item Value Reference Range Interpretation Comme nts NA (test code = 3452156270) 137 mmol/L 135-145 K (test code = 5691586050) 3.1 mmol/L 3.5-5.0 L CL (test code = 0671407251) 102 mmol/L 98-108 CO2 TOTAL (test code = 5628030481) 22 mmol/L 23-31 L AGAP (test code = 9739715105) 2-16 BUN (test code = 3953185707) 28 mg/dL 7-23 H GLUCOSE (test code = 8362874922) 132 mg/dL 70-110 H CREATININE (test code = 7222002535) 1.77 mg/dL 0.60-1.25 H TOTAL BILI (test code = 0421965733) 1.0 mg/dL 0.1-1.1 CALCIUM (test code = 5414513739) 9.4 mg/dL 8.6-10.6 T PROTEIN (test code = 0351321191) 9.4 g/dL 6.3-8.2 H ALBUMIN (test code = 5186349447) 5.0 g/dL 3.5-5.0 ALK PHOS (test code = 3451865004) 79 U/L 34-122 ALTv (test code = 1742-6) 112 U/L 5-50 H AST(SGOT) (test code = 3490517864) 152 U/L 13-40 H eGFR (test code = 0325470052) mL/min/1.73m2 KRYSTLE (test code = KRYSTLE) Association [...] imaging tests). Lab Interpretation (test code = 33748-3) Abnormal [facility] WITH [id number] 02:03:22* Test Item Value Reference Range Interpretation Comme nts WBC (test code = 6690-2) See_Comment [Automated Lucky Pai] The system which generated this result transmitted reference range: 4.20 - 10.70 10*3/?L. The reference range was not used to interpret this result as normal/abnormal. RBC (test code = 789-8) See_Comment [Automated Contractuallya ge] The system which generated this result [...] g/dL 31.2-35.0 H RDW-SD (test code = 23879-1) 39.7 fL 38.5-51.6 RDW-CV (test code = 788-0) 12.7 % 12.1-15.4 PLT (test code = 777-3) See_Comment [Automated Contractuallya ge] The system which generated this result transmitted reference range: 150 - 328 10*3/?L. The reference range was not used to interpret this result as normal/abnormal. MPV (test code = 43930-8) 9.7 fL 9.8-13.0 L NRBC/100 WBC (test code = 9335533131) See_Comment [Automated Nuserv ssage] The system which generated this result transmitted reference range: 0.0 - 10.0 /100 WBCs. The reference range was not used to interpret this result as normal/abnormal. NRBC x10^3 (test code = 9047931987) <0.01 See_Comment [Automated Contractuallya ge] The system which generated this result transmitted reference range: 10*3/?L. The reference range was not used to interpret this result as normal/abnormal. GRAN MAT (NEUT) % (test code = 770-8) 45.9 % IMM GRAN % (test code = 1201613464) 0.20 % LYMPH % (test code = 736-9) 41.7 % MONO % (test code = 5905-5) 11.6 % EOS % (test code = 713-8) 0.3 % BASO % (test code = 706-2) 0.3 % GRAN MAT x10^3(ANC) (test code = 6388721474) 3.95 10*3/uL 1.99-6.95 IMM GRAN x10^3 (test code = 9574096473) <0.03 0.00-0.06 LYMPH x10^3 (test code = 731-0) 3.60 10*3/uL 1.09-3.23 H MONO x10^3 (test code = 742-7) 1.00 10*3/uL 0.36-1.02 EOS x10^3 (test code = 711-2) 0.03 10*3/uL 0.06-0.53 L BASO x10^3 (test code = 704-7) 0.03 10*3/uL 0.01-0.09 Lab Interpretation (test code = 09725-5) Abnormal [facility] WITH [id number] 02:03:22* Test Item Value Reference Range Interpretation Comme nts WBC (test code = 6690-2) See_Comment [Automated Contractuallya ge] The system which generated this result transmitted reference range: 4.20 - 10.70 10*3/?L. The reference range was not used to interpret this result as normal/abnormal. RBC (test code = 789-8) See_Comment [Automated Contractuallya ge] The system which generated this result [...] g/dL 31.2-35.0 H RDW-SD (test code = 72952-5) 39.7 fL 38.5-51.6 RDW-CV (test code = 788-0) 12.7 % 12.1-15.4 PLT (test code = 777-3) See_Comment [Automated messa ge] The system which generated this result transmitted reference range: 150 - 328 10*3/?L. The reference range was not used to interpret this result as normal/abnormal. MPV (test code = 69094-7) 9.7 fL 9.8-13.0 L NRBC/100 WBC (test code = 2969103594) See_Comment [Automated Nuserv ssage] The system which generated this result transmitted reference range: 0.0 - 10.0 /100 WBCs. The reference range was not used to interpret this result as normal/abnormal. NRBC x10^3 (test code = 9195394904) <0.01 See_Comment [Automated messa ge] The system which generated this result transmitted reference range: 10*3/?L. The reference range was not used to interpret this result as normal/abnormal. GRAN MAT (NEUT) % (test code = 770-8) 45.9 % IMM GRAN % (test code = 7057082350) 0.20 % LYMPH % (test code = 736-9) 41.7 % MONO % (test code = 5905-5) 11.6 % EOS % (test code = 713-8) 0.3 % BASO % (test code = 706-2) 0.3 % GRAN MAT x10^3(ANC) (test code = 6716901891) 3.95 10*3/uL 1.99-6.95 IMM GRAN x10^3 (test code = 0099884491) <0.03 0.00-0.06 LYMPH x10^3 (test code = 731-0) 3.60 10*3/uL 1.09-3.23 H MONO x10^3 (test code = 742-7) 1.00 10*3/uL 0.36-1.02 EOS x10^3 (test code = 711-2) 0.03 10*3/uL 0.06-0.53 L BASO x10^3 (test code = 704-7) 0.03 10*3/uL 0.01-0.09 Lab Interpretation (test code = 64911-4) [facility] NOW RAPID TESTING)2021-05-02 00:31:00* Test Item Value Reference Range Interpretation Comme nts SARS-CoV-2 Rapid ID NOW (test code = 86952-5) Not Detected Not Detected KRYSTLE (test code = KRYSTLE) ID NOW COVID-19 As say is an isothermal nucleic acid amplification test intended for the qualitative detection of nucleic acid from SARS-CoV-2 viral RNA in nasopharyngeal ([employer]) specimens. It is used under Emergency [...] clinically indicated. Lab Interpretation (test code = 77281-8) Normal [facility] STREP SCREEN FOR GROUP [id number] 00:25:45* Test Item Value Reference Range Interpretation Comme nts Streptococcus pyogenes (grou p A) antigen (test code = 50550-8) Negative Negative Lab Interpretation (test cod e = 59880-3) [facility]21-[facility]-02 01:41:42* Test Item Value Reference Range Interpretation Comme nts SARS-CoV-2 Rapid ID NOW (test code = 52690-2) Not Detected Not Detected KRYSTLE (test code = KRYSTLE) ID NOW COVID-19 As say is an isothermal nucleic acid amplification test intended for the qualitative detection of nucleic acid from SARS-CoV-2 viral RNA in nasopharyngeal (B[employer] CH[employer]PERATOR) specimens. It is used under Emergency [...] clinically indicated. Lab Interpretation (test code = 87118-9) Normal [facility] GROUP [id number] 01:39:31* Test Item Value Reference Range Interpretation Comme nts Streptococcus pyogenes (grou p A) antigen (test code = 30870-5) Negative Negative Lab Interpretation (test cod e = 18515-7) Normal [facility] W[facility] 3+ VW [id number] 02:41:03 Impression: No acute osseous abnormality. AFC: [id number] of Report Exam: XR WRIST 3+ [...] soft tissue edema.IMPRESSIONImpression: No acute osseous abnormality.AFC: [id number] of Report [facility] Worth[facility]inalysis2021-07-05 01:32:01* Test Item Value Reference Range Interpretation Comme nts APPEARANCE (test code = 3149655142) Clear Clear COLOR (test code = 5162183133) Yellow Yellow PH (test code = 6197275102) 4.8-8.0 SP GRAVITY (test code = 0130955931) 1.003-1.030 GLU U QUAL (test code = 5686481741) Normal Normal BLOOD (test code = 6946487358) Negative Negative KETONES (test code = 0412998501) Negative Negative PROTEIN (test code = 2887-8) Negative Negative UROBILIN (test code = 9365750912) 2.0 mg/dL Normal A BILIRUBIN (test code = 1040286457) Negative Negative NITRITE (test code = 5356538332) Negative Negative LEUK MO (test code = 2646877228) Negative Negative RBC/HPF (test code = 4337143543) See_Comment [Automated Contractuallya ge] The system which generated this result transmitted reference range: 0 - 3 HPF. The reference range was not used to interpret this result as normal/abnormal. WBC/HPF (test code = 6306112675) See_Comment [Automated Contractuallya ge] The system which generated this result transmitted reference range: 0 - 5 HPF. The reference range was not used to interpret this result as normal/abnormal. BACTERIA (test code = 2219667608) Few Negative A MUCOUS (test code = 2300055392) Slight Negative LPF A SQ EPITH (test code = 2991369106) <1 HPF Lab Interpretation (test code = 66008-5) [facility]normal [facility]ST 1 [id number] 04:09:05Impression: Mild thickening of the sol of the central airways, possibly reflectinginfectious or inflammatory bronchitis. RL: 460 AFC: [id number] Ordering physician: DARNELL HSU Indication: Cough and [...] airways, possibly reflectinginfectious or inflammatory bronchitis.RL: 460AFC: [id number] signed byMarisol Manzo MD, PhD at 11/14/2020 10:09 PM [facility] WorthCOMPREHENSIVE METABOLIC [id number] 00:00:00* Test Item Value Reference Range Interpretation Comme nts GLUCOSE (test code = 2217) 101 MG/DL BUN (test code = 2208) 11 MG/DL CREATININE (test code = 2214) 0.88 MG/DL eGFR AMER. (test cod e = 65100) 118 ML/MIN/1.73 eGFR NON- AMER. (test code = 00610) 102 ML/MIN/1.73 CALC BUN/CREAT (test code = [...] code = 2219) 88 U/L COMPREHENSIVE METABOLIC [id number] 00:00:00* Test Item Value Reference Range Interpretation Comme nts GLUCOSE (test code = 2217) 101 MG/DL BUN (test code = 2208) 11 MG/DL CREATININE (test code = 2214) 0.88 MG/DL eGFR AMER. (test cod e = 23089) 118 ML/MIN/1.73 eGFR NON- AMER. (test code = 17106) 102 ML/MIN/1.73 CALC BUN/CREAT (test code = 2235) 13 RATIO SODIUM (test code = 223) 143 MEQ/L POTASSIUM (test code = 2228) 4.5 MEQ/L CHLORIDE (test code = 2215) 106 MEQ/L CARBON DIOXIDE (test code = 6) 23 MEQ/L CALCIUM (test code = 2209) 9.5 MG/DL PROTEIN, TOTAL (test code = 222) 8.2 G/DL ALBUMIN (test code = 2200) 4.5 G/DL CALC GLOBULIN (test code = 2240) 3.7 G/DL CALC A/G RATIO (test code = 2234) 1.2 RATIO BILIRUBIN, TOTAL (test code = 2206) 0.6 MG/DL ALKALINE PHOSPHATASE (test code = 2203) 69 U/L AST (test code = 2217) 54 U/L ALT (test code = 2218) 88 U/L N-TERMINAL [id number] 15:43:00* Test Item Value Reference Range Interpretation Comme nts NT-proBNP (test code = 6846607347) <11 See_Comment [Automated message] The system which generated this result transmitted reference range: <=125 pg/mL. The reference range was not used to interpret this result as normal/abnormal. KRYSTLE (test code = KRYSTLE) Biotin has been reported to cause a negative bias, interpret results relative to patient's use of biotin. Lab Interpretation (test code = 13608-8) Normal [facility] WITH [id number] 15:27:00* Test Item Value Reference Range Interpretation Comme nts WBC (test code = 6690-2) See_Comment [Automated Contractuallya ge] The system which generated this result transmitted reference range: 4.20 - 10.70 10*3/?L. The reference range was not used to interpret this result as normal/abnormal. RBC (test code = 789-8) See_Comment [Automated Contractuallya ge] The system which generated this result [...] g/dL 31.2-35 H RDW-SD (test code = 61269-6) 37.3 fL 38.5-51.6 L RDW-CV (test code = 788-0) 11.9 % 12.1-15.4 L PLT (test code = 777-3) See_Comment [Automated Contractuallya ge] The system which generated this result transmitted reference range: 150 - 328 10*3/?L. The reference range was not used to interpret this result as normal/abnormal. MPV (test code = 20985-5) 9.7 fL 9.8-13 L NRBC/100 WBC (test code = 9200466206) See_Comment [Automated [employer] ssage] The system which generated this result transmitted reference range: 0.0 - 10.0 /100 WBCs. The reference range was not used to interpret this result as normal/abnormal. NRBC x10^3 (test code = 9029523890) <0.01 See_Comment [Automated Contractuallya ge] The system which generated this result transmitted reference range: 10*3/?L. The reference range was not used to interpret this result as normal/abnormal. GRAN MAT (NEUT) % (test code = 770-8) 29.2 % IMM GRAN % (test code = 2400352178) 0.20 % LYMPH % (test code = 736-9) 59.0 % MONO % (test code = 5905-5) 10.1 % EOS % (test code = 713-8) 1.1 % BASO % (test code = 706-2) 0.4 % GRAN MAT x10^3(ANC) (test code = 0516151810) 1.57 10*3/uL 1.99-6.95 L IMM GRAN x10^3 (test code = 6048024990) <0.03 0-0.06 LYMPH x10^3 (test code = 731-0) 3.17 10*3/uL 1.09-3.23 MONO x10^3 (test code = 742-7) 0.54 10*3/uL 0.36-1.02 EOS x10^3 (test code = 711-2) 0.06 10*3/uL 0.06-0.53 BASO x10^3 (test code = 704-7) <0.03 0.01-0.09 Lab Interpretation (test code = 36589-4) [facility] 1 [id number] 15:13:32No acute cardiopulmonary process. Preliminary Report Dictated by Resident: Efraín Alcaraz MD., have reviewed this study and agree withthe above report.PROCEDURE: XR CHEST1 VW CLINICAL INDICATION: dizzy TECHNIQUE: Frontal chest radiograph was obtained. COMPARISON: None FINDINGS: The lungs are clear. No pleural effusion or pneumothorax is seen. The heart is normal in size. No acute bony abnormality is noted. [facility], Radiant Results Inft User - 09/30/2020 9:14 AM CSTPROCEDURE: XR CHEST 1 VWCLINICAL INDICATION: dizzy TECHNIQUE: Frontal chest radiograph was obtained.COMPARISON: NoneFINDINGS:The lungs are clear. No pleural effusion or pneumothorax is seen. The heart isnormal in size.No acute bony abnormality is noted.IMPRESSIONNo acute cardiopulmonary process.Preliminary Report Dictated by Resident: Luiz Ruiz MD., have reviewed thisstudy and agree withthe above report.[facility] WorthTROPONIN [id number] 14:59:00* Test Item Value Reference Range Interpretation Comme nts TROPONIN I (test code = 7425392900) <0.012 See_Comment [Automated message] The system which [...] biotin. ? Lab Interpretation (test code = 11152-3) [facility]30[facility]2020-[facility] 14:59:00* Test Item Value Reference Range Interpretation Comme nts NA (test code = 2242793522) 139 mmol/L 135-145 K (test code = 6936300968) 3.8 mmol/L 3.5-5 CL (test code = 6042465646) 103 mmol/L 98-108 CO2 TOTAL (test code = 8590795545) 26 mmol/L 23-31 AGAP (test code = 9755849422) 2-16 BUN (test code = 8685913815) 11 mg/dL 7-23 GLUCOSE (test code = 4104152369) 163 mg/dL 70-110 H CREATININE (test code = 6534444221) 0.85 mg/dL 0.6-1.25 TOTAL BILI (test code = 4825371581) 0.6 mg/dL 0.1-1.1 CALCIUM (test code = 5477305887) 9.0 mg/dL 8.6-10.6 T PROTEIN (test code = 2345646455) 8.0 g/dL 6.3-8.2 ALBUMIN (test code = 1386706942) 4.4 g/dL 3.5-5 ALK PHOS (test code = 4173808702) 75 U/L 34-122 ALTv (test code = 1742-6) 61 U/L 5-50 H AST(SGOT) (test code = 1471708071) 54 U/L 13-40 H eGFR Calculation (Non-) (test code = 7955237891) mL/min/1.73m2 eGFR Calculation () (test code = 3230809060) mL/min/1.73m2 KRYSTLE (test code = KRYSTLE) Association [...] imaging tests). Lab Interpretation (test code = 57035-8) [facility]normal [facility] Worth[facility]IPASE, [id number] 14:59:00* Test Item Value Reference Range Interpretation Comme nts LIPASE (test code = 7802879748) 116 U/L 0-220 Lab Interpretation (test cod e = 30175-2) Normal [facility] WorthTroponin [id number] 04:30:00* Test Item Value Reference Range Interpretation Comme nts TROPONIN I (test code = 6823534609) <0.012 See_Comment [Automated message] The system which [...] biotin. ? Lab Interpretation (test code = 64694-1) Normal [facility] Worth[facility] Metabolic [id number] 03:24:00* Test Item Value Reference Range Interpretation Comme nts NA (test code = 6545960316) 137 mmol/L 135-145 K (test code = 6971742959) 4.7 mmol/L 3.5-5 CL (test code = 1723258553) 101 mmol/L 98-108 CO2 TOTAL (test code = 6326609385) 27 mmol/L 23-31 AGAP (test code = 7275880550) 2-16 BUN (test code = 4129765836) 16 mg/dL 7-23 GLUCOSE (test code = 5433740066) 226 mg/dL 70-110 H CREATININE (test code = 5066780604) 1.13 mg/dL 0.6-1.25 TOTAL BILI (test code = 7154979293) 0.7 mg/dL 0.1-1.1 CALCIUM (test code = 6092960007) 9.3 mg/dL 8.6-10.6 T PROTEIN (test code = 7558482380) 7.8 g/dL 6.3-8.2 ALBUMIN (test code = 7316966158) 3.9 g/dL 3.5-5 ALK PHOS (test code = 2231229695) 79 U/L 34-122 ALTv (test code = 1742-6) 62 U/L 5-50 H AST(SGOT) (test code = 2012346028) 49 U/L 13-40 H eGFR Calculation (Non-) (test code = 0033733758) mL/min/1.73m2 eGFR Calculation () (test code = 6754372776) mL/min/1.73m2 KRYSTLE (test code = KRYSTLE) Association [...] imaging tests). Lab Interpretation (test code = 07313-2) [facility]normal [facility] BranchLipase, [id number] 03:23:00* Test Item Value Reference Range Interpretation Comme nts LIPASE (test code = 5957547404) 317 U/L 0-220 H Lab Interpretation (test cod e = 40734-7) Abnormal [facility] with Nsbptsjfkhzt8923-64-07 03:21:00* Test Item Value Reference Range Interpretation [...] g/dL 31.2-35 H RDW-SD (test code = 03412-4) 37.9 fL 38.5-51.6 L RDW-CV (test code = 788-0) 12.4 % 12.1-15.4 PLT (test code = 777-3) See_Comment [Automated Contractuallya ge] The system which generated this result transmitted reference range: 150 - 328 10*3/?L. The reference range was not used to interpret this result as normal/abnormal. MPV (test code = 62619-3) 9.7 fL 9.8-13 L NRBC/100 WBC (test code = 0213254527) See_Comment [Automated [employer] ssage] The system which generated this result transmitted reference range: 0.0 - 10.0 /100 WBCs. The reference range was not used to interpret this result as normal/abnormal. NRBC x10^3 (test code = 3351088512) <0.01 See_Comment [Automated messa ge] The system which generated this result transmitted reference range: 10*3/?L. The reference range was not used to interpret this result as normal/abnormal. GRAN MAT (NEUT) % (test code = 770-8) 36.7 % IMM GRAN % (test code = 6216145543) 0.10 % LYMPH % (test code = 736-9) 50.9 % MONO % (test code = 5905-5) 11.1 % EOS % (test code = 713-8) 0.8 % BASO % (test code = 706-2) 0.4 % GRAN MAT x10^3(ANC) (test code = 4714889082) 2.59 10*3/uL 1.99-6.95 IMM GRAN x10^3 (test code = 4196658589) <0.03 0-0.06 LYMPH x10^3 (test code = 731-0) 3.61 10*3/uL 1.09-3.23 H MONO x10^3 (test code = 742-7) 0.79 10*3/uL 0.36-1.02 EOS x10^3 (test code = 711-2) 0.06 10*3/uL 0.06-0.53 BASO x10^3 (test code = 704-7) 0.03 10*3/uL 0.01-0.09 Lab Interpretation (test code = 66813-1) Abnormal [facility] History and Physical Notes Date/Time Note Provider Source 2024-03-30 09:12:24 GI New Patient Visit Chief Complaint Patient presents with Consultation Colon cancer screening, Epigastric pain, nausea/vomiting, diarrhea, history of pancreatitis History of hepatitis C HPI: Noah Putnam is a 53 year old male who presents to discuss numerous issues. He has a complicated history. Since 2018, he has a difficulty with fairly significant epigastric abdominal pain, nausea, vomiting. This has been occurring on a regular basis. He describes his pain as a burning or pressure-like sensation. It can occur with eating or often with changes in position as well. Along with this, he has also had intermittent difficulty with diarrhea. He has had numerous ER visits and even hospital stay in 12/2022 for the symptoms. I have reviewed his extensive workup. His most recent workup has included the followin09/2022 ultrasound: No cholelithiasis 11/2022 CT: No acute abnormalities. Unremarkable pancreas. 07/2023 CT: No acute abnormalities. 11/2023 CT: No acute abnormalities. Unremarkable pancreas. Review of his chart also shows an intermittently elevated lipase with a peak of 623 and 04/2023 (ULN 220). On a 12/2022 hospital stay at [facility], he was diagnosed with an idiopathic chronic pancreatitis and was placed on Creon for his diarrhea. He has been using Creon, but does not feel that it helps much with his intermittent loose stools. He tells me that he is been completely sober since about 2015, but does have a previous heavy alcohol use. He denies any fevers, chills, or unintentional weight loss. As above, he does have difficulty with fairly constant nausea and also intermittent nonbloody/nonbilious emesis. His emesis can consist of food that he has eaten many hours prior. He does not use any marijuana. He has never had an upper endoscopy or an MRCP before. Additionally, he also is a previous history of hepatitis C which was diagnosed many years ago. He tells me that he underwent Harvoni treatment several years ago. Reportedly, he had an SVR following this. Lastly, he is also due for colon cancer screening. He has never had a colonoscopy before. Past Medical History: Diagnosis Date BPH (benign prostatic hyperplasia) Chronic back pain Chronic hepatitis C (multi HCC) 2020 Treated with Harvoni in 2020 Chronic pancreatitis (multi HCC) GERD (gastroesophageal reflux disease) Hypertension Spondylosis of lumbar spine Past Surgical History: Procedure Laterality Date WRIST ENDOSCOPY/SURGERY Left due to fall from roof Current Outpatient Medications on File Prior to Visit Medication Sig Dispense Refill Amlodipine Besylate 10 MG oral Tablet Take 1 tablet (10 mg total) by mouth daily. 90 tablet 0 Bisacodyl (DULCOLAX) 5 MG oral Tablet Delayed Response Take 1 tablet (5 mg total) by mouth daily as needed. Cyclobenzaprine HCl 10 MG oral Tablet Take 1 tablet (10 mg total) by mouth nightly as needed for muscle spasms. 30 tablet 1 Famotidine (PEPCID) 20 MG oral tablet Take 1 tablet (20 mg total) by mouth 2 times daily. 60 tablet 3 Lisinopril 10 MG oral Tablet Take 1 tablet (10 mg total) by mouth daily. 90 tablet 1 Pancrelipase, Ble-Fnjr-Axio, (Creon) 67[address]-[address] units [address] Particles Take 1 capsule by mouth 3 times daily (with meals). 90 capsule 2 Tamsulosin HCl 0.4 MG oral Capsule Take 1 capsule (0.4 mg total) by mouth every night at bedtime. 90 capsule 3 No current facility-administered medications on file prior to visit. Allergies Allergen Reactions Bee Venom Swelling Family History Problem Relation Name Age of Onset Diabetes Mellitus Mother Hypertension Mother Diabetes Mellitus Father Hypertension Father Cancer Father Diabetes Mellitus Maternal Grandmother Cancer Maternal Grandmother Diabetes Mellitus Paternal Grandmother Social History Socioeconomic History Marital status: Single Number of children: 3 Highest education level: Associate degree: academic program Occupational History Occupation: none Tobacco Use Smoking status: Former Current packs/day: 0.00 Average packs/day: 0.5 packs/day for 1 year (0.5 ttl pk-yrs) Types: Cigarettes Start date: 2021 Quit date: 2022 Years since quittin.5 Smokeless tobacco: Never Vaping Use Vaping status: Never Used Substance and Sexual Activity Alcohol use: Not Currently Comment: sober since 2016 Drug use: Not Currently Comment: He was getting medicinal marijuana while in [place] Sexual activity: Yes Partners: Male ROS: 06/27 systems reviewed, negative except for as mentioned in HPI. PE: BP 119/77 (Side: Right Arm, Position: SITTING, Cuff Size: Large Adult) | Pulse 83 | Temp 98 ?F (36.7 ?C) (Tympanic) | Resp 18 | Ht 6' 5" (1.956 m) | Wt 255 lb (115.7 kg) | SpO2 100% | BMI 30.24 kg/m? Gen: NAD, AO x 3 HEENT: PERRLA EOMI, MMM, No icterus Ab: soft, ttp in epig, nd, +bs, no rebound/guarding, no HSM CV: No ext c/c/e, wwp Skin: No rashes, jaundice, petechiae Psych: Appropriate mood and affect Neuro: CN II-XII grossly intact : Deferred Pertinent Lab and Diagnostic Tests: Reviewed in EMR. A/P: 53 year old male who presents with multiple issues. 1. Epigastric abdominal pain, nausea/vomiting, diarrhea: He carries a diagnosis of chronic pancreatitis, although, his numerous CT scans have not revealed any pancreatic abnormalities whatsoever. His biochemical testing has only revealed a lipase 3 times ULN on 1 occasion in 04/2023. Additionally, he has not had much benefit with Creon and I am not entirely sure that he has a true exocrine pancreatic insufficiency. I recommended a full workup for his symptoms. Recommendations are as follows: --MRCP for pancreatic structural evaluation --Amylase/lipase --EGD, TIVA - bx HP --Start Omeprazole 40 mg daily --Infectious studies --Celiac serologies, thyroid studies --Fecal elastase (instructed patient to be off of Creon for this) --Consider GES and gallbladder workup if above workup is negative --ER precautions 2. History of hepatitis C: Status post Harvoni. --HCV-RNA 3. Colon cancer screening: Currently due. --Colonoscopy, TIVA RV 6 mos. Thank you for this interesting consultation. The above instructions were reviewed with the patient during the clinic visit. All questions were answered. Gibran Mcadams MD [facility] Notes Date/Time Note Provider Source 2024-04-02 12:54:12 Pt given printed and verbal discharge instructions regarding abdominal pain, encouraged hydration. Prescriptions provided. Pt verbalized understanding of instructions, pt awake alert oriented, resp reg unlabored, skin w/d, color appropriate for race, moves all ext well, pt encouraged to follow up with pcp. Advised to seek medical attention for new/prolonged/worsening of symptoms. Symptoms addressed. No adverse reaction to meds given in ER noted upon discharge. PIV d'cd, dressing to site, catheter intact. Pt leaving amb with steady gait, in no apparent distress. Left with . Caty Pang RN [facility] 2024-04-02 08:35:20 Pt arrives with c/o upper abd pain, pt states known hx pancreatitis, had recent labs and lipase elevated. Pain present for one week, worsening last 2 days. 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 Pt has been hospitalized for this. Aminta Novoa RN [facility] 2024-03-30 08:10:34 Chief Complaint Patient presents with Consultation Yosi Dos Santos LVN [facility] 2024-02-20 23:53:18 Pt given printed and verbal discharge instructions regarding abd pain, & constipation, encouraged hydration. Prescriptions provided. Pt verbalized understanding of instructions, pt awake alert oriented, resp reg unlabored, skin w/d, color appropriate for race, moves all ext well,pt encouraged to follow up with pcp and GI. Advised to seek medical attention for new/prolonged/worsening of symptoms. No adverse reaction to meds given in ER noted upon discharge. PIV d'cd, dressing to site, catheter in tact. Awake, alert oriented, resp reg unlabored, skin w/d, pt leaving amb with steady gait, in no apparent distress. Carol Siddiqui RN [facility] 2024-02-20 21:42:07 Pt arrived ambulatory with complaints of abdominal pain and constipation x4 days. Pt reports hx of pancreatitis but has been out of Creon prescription for a while. Debora Bhatti RN [facility] 2023-12-09 23:47:26 Pt discharged with diagnosis of lumbar radiculopathy. Printed and verbal instructions reviewed with and given to pt. Prescriptions given x 2. Pt verbalized understanding of teaching, medication, and recommended follow-up. Denies questions or concerns at this time. Pt ambulatory at discharge. Appears in no apparent distress. No ataxia noted. Accompanied by family. Shira Brumfield RN [facility] 2023-12-09 20:10:35 CC: Pt reports left sided low back pain going down left leg since Thursday. Today he felt the urge to void but could not, then had 2 episodes of voiding blood. PMHx: chronic pancreatitis, hep C (resolved), sciatica Awake, alert, oriented, resp reg unlabored, skin warm, color appropriate for race, moves all ext without difficulty, amb with steady gait Carol Wu RN 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 As a result of said fall, pt developed chronic recurrent low back pain. No fever or chills. 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 Difficulty Urinating Presenting symptoms: no dysuria, no penile discharge and no penile pain Context: spontaneously Relieved by: Nothing Worsened by: Nothing Ineffective treatments: None tried Associated symptoms: hematuria Associated symptoms: no abdominal pain, no diarrhea, no fever, no flank pain, no genital itching, no genital lesions, no groin pain, no nausea, no penile swelling, no priapism, no scrotal swelling, no urinary frequency, no urinary hesitation, no urinary incontinence, no urinary retention and no vomiting Risk factors: no bladder surgery, no change in medication, no erectile dysfunction, no foreign body, no kidney stones, no recent infection, no sickle cell disease, no STI exposure and no urinary catheter Past Medical History/Immunizations: Past Medical History: Diagnosis Date Gastric ulcer GERD (gastroesophageal reflux disease) Hepatitis C HTN (hypertension) Marijuana use Sciatica Chronic Pancreatitis Tetanus received in last 5 years: Yes Allergies: Allergies Allergen Reactions Bee Venom Protein (Honey Bee) Swelling Past Social History: Tobacco Use Never smoked or used smokeless tobacco. Alcohol Use Not Currently. Drug Use Not Currently; Marijuana. Comments: former Past Surgical History: Past Surgical History: Procedure Laterality Date ND FOREARM OR WRIST SURGERY Left Review of Systems: Review of Systems Constitutional: Negative. Negative for fever. HENT: Negative. Eyes: Negative. Respiratory: Negative. Breasts: Negative. Cardiovascular: Negative. Gastrointestinal: Negative. Negative for abdominal pain, diarrhea, nausea and vomiting. Genitourinary: Positive for hematuria, decreased urine volume and difficulty urinating. Negative for bladder incontinence, dysuria, hesitancy, urgency, frequency, flank pain, discharge, penile swelling, scrotal swelling, genital sores, penile pain, testicular pain and nocturia. Musculoskeletal: Positive for arthralgias and back pain. Negative for gait problem, joint swelling and myalgias. Skin: Negative. Neurological: Negative. Psychiatric/Behavioral: Negative. All other systems reviewed and are negative. Endocrine: Endocrine negative Physical Exam: ED Triage Vitals [12/09/232011] Weight 122.5 kg (270 lb) Actual or estimated Estimated by patient/family report Height 1.956 m (6' 5") BP (!) 150/86 Pulse 76 Resp 18 Temp 36.8 ?C (98.3 ?F) Temp source Oral SpO2 96 % Measured on Room air Physical Exam Vitals and nursing note reviewed. Constitutional: General: He is not in acute distress. Appearance: Normal appearance. He is well-developed. He is obese. He is not ill-appearing, toxic-appearing or diaphoretic. HENT: Head: Normocephalic and atraumatic. Nose: Nose normal. No congestion or rhinorrhea. Mouth/Throat: Mouth: Mucous membranes are moist. Pharynx: Oropharynx is clear. Eyes: General: No scleral icterus. Right eye: No discharge. Left eye: No discharge. Extraocular Movements: Extraocular movements intact. Conjunctiva/sclera: Conjunctivae normal. Pupils: Pupils are equal, round, and reactive to light. Cardiovascular: Rate and Rhythm: Normal rate and regular rhythm. Pulses: Normal pulses. Heart sounds: Normal heart sounds. No murmur heard. Pulmonary: Effort: Pulmonary effort is normal. No respiratory distress. Breath sounds: Normal breath sounds. No stridor. No wheezing, rhonchi or rales. Chest: Chest wall: No tenderness. Abdominal: General: Bowel sounds are normal. There is no distension. Palpations: Abdomen is soft. There is no mass. Tenderness: There is no abdominal tenderness. There is no right CVA tenderness, left CVA tenderness, guarding or rebound. Hernia: No hernia is present. Musculoskeletal: General: No swelling, tenderness, deformity or signs of injury. Normal range of motion. Cervical back: Normal range of motion and neck supple. No rigidity or tenderness. Lymphadenopathy: Cervical: No cervical adenopathy. Skin: General: Skin is warm and dry. Capillary Refill: Capillary refill takes less than 2 seconds. Coloration: Skin is not jaundiced or pale. Findings: No bruising, erythema, lesion or rash. Neurological: General: No focal deficit present. Mental Status: He is alert and oriented to person, place, and time. Cranial Nerves: No cranial nerve deficit. Sensory: No sensory deficit. Motor: No weakness. Coordination: Coordination normal. Gait: Gait normal. Deep Tendon Reflexes: Reflexes normal. Psychiatric: Behavior: Behavior normal. Thought Content: Thought content normal. Judgment: Judgment normal. Radiology: CT ABDOMEN PELVIS W CONTRAST Final Result CT ABDOMEN PELVIS W CONTRAST HISTORY: 53 years-old; Male; Hematuria, unknown cause COMPARISON: CT abdomen pelvis without contrast dated 08/03/2023. TECHNIQUE AND FINDINGS: Contiguous axial imaging from the level of the lung bases through the pubic symphysis was performed after the uncomplicated administration of intravenous Omnipaque contrast. Coronal and sagittal reconstructions were obtained. Auto mA and/or iterative reconstruction were used to reduce radiation dose. FINDINGS: LOWER THORAX: The lung bases are clear. No cardiomegaly. LIVER: 6 mm segment V cyst is noted. Normal contour. GALLBLADDER AND BILIARY TREE: No intra or extrahepatic biliary ductal dilation. SPLEEN: Unremarkable. PANCREAS: No ductal dilatation or masses ADRENAL GLANDS: No adrenal lesions. KIDNEYS: No hydronephrosis, stones, or masses. Homogeneous and symmetrical enhancement. GI TRACT: No dilation or bowel wall thickening. The appendix is normal.. PERITONEUM AND RETROPERITONEUM: No free air or fluid collection. LYMPH NODES: No intra-abdominal or pelvic lymph node enlargement. PELVIS/BLADDER: Bladder is partially distended with no wall thickening. VESSELS: Patent. BONES AND SOFT TISSUES: No suspicious lytic or sclerotic bony lesions. IMPRESSION No acute intra-abdominal or pelvic abnormality. Preliminary Report Dictated by Resident: Azam Pfeiffer MD., have reviewed this study and agree with the above report. Lab Results: Lab Results CBC WITH DIFF - Abnormal Result Value Ref Range WBC 6.21 4.20 - 10.70 10*3/?L RBC 4.89 4.26 - 5.52 10*6/?L HGB 14.8 12.2 - 16.4 g/dL HCT 42.5 38.4 - 49.3 % MCV 86.9 81.7 - 95.6 fL MCH 30.3 26.1 - 32.7 pg MCHC 34.8 31.2 - 35.0 g/dL RDW-SD 39.9 38.5 - 51.6 fL RDW-CV 12.7 12.1 - 15.4 % PLT 240 150 - 328 10*3/?L MPV 9.8 9.8 - 13.0 fL NRBC/100 WBC 0.0 0.0 - 10.0 /100 WBCs NRBC x10 3 <0.01 10*3/?L GRAN MAT (NEUT) % 31.3 % IMM GRAN % 0.00 % LYMPH % 57.3 % MONO % 9.3 % EOS % 1.6 % BASO % 0.5 % GRAN MAT x10 3 (ANC) 1.94 (*) 1.99 - 6.95 10*3/uL IMM GRAN x10 3 <0.03 0.00 - 0.06 10*3/uL LYMPH x10 3 3.56 (*) 1.09 - 3.23 10*3/uL MONO x10 3 0.58 0.36 - 1.02 10*3/uL EOS x10 3 0.10 0.06 - 0.53 10*3/uL BASO x10 3 0.03 0.01 - 0.09 10*3/uL COMP. METABOLIC PANEL (42485) - Abnormal NA 141 135 - 145 mmol/L K 4.3 3.5 - 5.0 mmol/L CL 107 98 - 108 mmol/L CO2 TOTAL 26 23 - 31 mmol/L AGAP 8 2 - 16 BUN 20 7 - 23 mg/dL GLUCOSE 123 (*) 70 - 110 mg/dL CREATININE 0.95 0.60 - 1.25 mg/dL TOTAL BILI 0.8 0.1 - 1.1 mg/dL CALCIUM 9.0 8.6 - 10.6 mg/dL T PROTEIN 8.4 (*) 6.3 - 8.2 g/dL ALBUMIN 4.3 3.5 - 5.0 g/dL ALK PHOS 58 34 - 122 U/L ALTv 33 5 - 50 U/L AST(SGOT) 52 (*) 13 - 40 U/L eGFR 96.9 mL/min/1.73m2 URINALYSIS - Abnormal APPEARANCE Clear Clear COLOR Yellow Yellow PH 5.0 4.8 - 8.0 SP GRAVITY 1.030 1.003 - 1.030 GLU U QUAL Normal Normal BLOOD Negative Negative KETONES 5 mg/dL (*) Negative PROTEIN Negative Negative UROBILIN 2.0 mg/dL (*) Normal BILIRUBIN Negative Negative NITRITE Negative Negative LEUK MO Negative Negative RBC/HPF 1 0 - 3 HPF WBC/HPF 3 0 - 5 HPF BACTERIA Negative Negative MUCOUS Slight (*) Negative LPF Orders and Treatments: Orders Placed This Encounter Procedures CT ABDOMEN PELVIS W CONTRAST Cbc with Diff Comp. Metabolic Panel (58431) Urinalysis Orders Placed This Encounter Medications ketorolac (TORADOL) injection 30 mg iopamidol (ISOVUE 370-500 mL) injection 100 mL HYDROcodone-acetaminophen (NORCO) 10-325 mg tablet 1 tablet ketorolac 10 mg tablet methocarbamoL 750 mg tablet First Provider Eval: ED Events Date/Time Event User Comments 12/09/232019 Medical Screening Begins ABRAHAM ORANTES MD -- 12/09/232019 First Provider Evaluation ABRAHAM ORANTES MD -- ED COURSE Diagnosis/Impression as of 12/09/23 2306 Hematuria of unknown cause Lumbar radiculopathy Procedures: Procedures MDM: Medical Decision Making Noah Putnam is a 53 year old male who presents to the ED with LBP with radiation to left calf and hematuria Problems Addressed: Hematuria of unknown cause: acute illness or injury Details: ED evaluation laboratory and Imaging study results as documented in chart No evidence of urethral calculus on work-up Etiology of said hematuria unclear. UA is negative fir blood.Pt denies any urethra;l discharge or pain Will refer Lumbar radiculopathy: chronic illness or injury Details: ED management as documented Has hx of chronic back pain//sciatica Pt was scheduled for an MRI but DNKA due to financial reasons Has another appointment scheduled for an MRI in one week. Encouraged pt to keep said appt. Pt asking for work excuse and wants lifting resctrictions Amount and/or Complexity of Data Reviewed External Data Reviewed: labs, radiology and notes. Labs: ordered. Decision-making details documented in ED Course. Radiology: ordered. Decision-making details documented in ED Course. Risk OTC drugs. Prescription drug management. Flowsheet Documentation: Scoring Tools: No data recorded Disposition/Condition: ED Disposition ED Disposition Disch - Home Condition Stable Comment -- Discharge Medications: Patient's Medications START taking these medications KETOROLAC 10 MG TABLET Take 1 tablet by mouth every 6 (six) hours as needed for Pain (scale 7-10). METHOCARBAMOL 750 MG TABLET Take 1 tablet by mouth every 6 (six) hours as needed for Pain (scale 7-10) (MUSCLE SPASM). CONTINUE taking these medications which have NOT CHANGED AMLODIPINE (NORVASC) 10 MG TABLET Take 1 tablet by mouth daily. BISACODYL 5 MG EC TABLET Take 1 tablet by mouth once daily as needed for Constipation. DICYCLOMINE 20 MG TABLET Take 1 tablet by mouth 4 (four) times daily as needed for Abdominal pain. HYDROCODONE-ACETAMINOPHEN 5-325 MG TABLET Take 1 tablet by mouth every 4 (four) hours as needed for Pain (scale 4-6) for up to 10 doses. Indications: acute pain HYOSCYAMINE SULFATE (LEVSIN/SL) 0.[address] 2 tablets under the tongue every 6 (six) hours as needed (Abdominal pain or cramping). LQGCOT-FTSNKSNF-FAXBRUT (CREON) 3,000-9,500- 15,000 UNIT CAPSULE Take 1 capsule by mouth in the morning and 1 capsule at noon and 1 capsule in the evening. Take with meals. LISINOPRIL 10 MG TABLET Take 10 mg by mouth in the morning. METHOCARBAMOL 500 MG TABLET Take 1 tablet by mouth every 6 (six) hours as needed (MUSCLE SPASM). METOCLOPRAMIDE HCL 10 MG TABLET Take 1 tablet by mouth every 6 (six) hours. METOCLOPRAMIDE HCL 10 MG TABLET Take 1 tablet by mouth every 6 (six) hours. OMEPRAZOLE 40 MG CAPSULE Take 1 capsule by mouth in the morning and 1 capsule in the evening. ONDANSETRON (ZOFRAN) 4 MG TABLET Take 1 tablet by mouth every 8 (eight) hours as needed for Nausea and Vomiting (N/V). ONDANSETRON 4 MG DISINTEGRATING TABLET Take 1 tablet by mouth every 8 (eight) hours as needed for Nausea and Vomiting (N/V). ONDANSETRON 4 MG TABLET 1-2 tablets every 8 hours as needed for nausea PEG-ELECTROLYTE SOLN 236-22.74-6.74 -5.86 GRAM SOLUTION Take as directed before colonoscopy PROMETHAZINE 25 MG TABLET Take 1 tablet by mouth every 6 (six) hours as needed for Nausea and Vomiting (N/V) or N/V unresponsive to Ondansetron. TRAMADOL 50 MG TABLET Take 1 tablet by mouth every 6 (six) hours as needed (pain). Indications: acute pain START taking Modified Medications as Prescribed No medications on file STOP taking these medications No medications on file Follow-up: Contact information for follow-up Jimmy Brennan MD Relationship: PCP - General [facility] [address] [place] [address] [place] [address] Amrik Graham MD Specialty: ORT-ORTHOPAEDIC SURGERY [address] [facility] [id number] Electronically signed by: Abraham Orantes MD 12/09/[address] [facility] 2023-10-06 14:20:14 Chief Complaint Patient presents with New Patient Blood Pressure the patient States he will bring in all his meds the next ov [facility] 2023-07-23 07:15:00 [facility] ([facility]) EMERGENCY PROVIDER REPORT REPORT#:[id number] REPORT STATUS: Signed DATE:07/23/23 TIME: 714 PATIENT: NOAH PUTNAM UNIT #: [id number] ROOM/BED: AGE: 52 SEX: M PCP PHYS: DOES_NOT KNOW SERVICE AUTHOR: Tracy Hall MD R1 LOCATION: [facility] * ALL edits or amendments must be made on the electronic/computer document * Tracy Hall 07/23/23 0715: HPI-Abd Pain M 40 and Over Free Text HPI Notes Free Text HPI Notes 52 year old male with reported PMH of chronic pancreatitis and PUD presents to the ED with a complaint of diffuse epigastric pain and burning sensation, postprandial nausea and vomiting for the last 3 days. Chart review showed that the patient was seen in [place] ED on 07/[address] AP was negative for gallbladder, biliary, pancreatic and GI disease. Patient sees a GI doctor at [facility] and is in the process of getting a c-scope and EGD. Denies chest pain, SOB, hematemesis, melena and hematochezia. General Initial Greet Date/Time 07/23/23 0522 Provider in Triage HPI Chief Complaint Abdominal pain, Nausea/vomiting/diarrhea PE General/Const No acute distress Respiratory/Chest No respiratory distress Presentation Chief Complaint Abdominal pain, Nausea Sudden in Onset? No Risk-Abd Pain M 40 and Over )( Abdominal Aortic Aneurysm No risk factors Review of Systems ROS Statements All systems rev neg except as marked. Focused Review of Systems GI Reports: Abdominal pain, Nausea, Vomiting. Past Medical History - Adult Stated Complaint ABD PAIN, N/V Allergies Coded Allergies: bee venom protein (honey bee) (Severe, THROAT SWELL 07/23/23) Home Medications Active Scripts oxyCODONE/APAP (PERCOCET 5/325 MG) 1 TAB PO Q6H PRN PRN PAIN SCALE 7-10, SECOND LINE oxyCODONE/APAP (PERCOCET 5/325 MG) 1 TAB PO Q6H PRN PRN PAIN SCALE 7-10, SECOND LINE #24 TABS Prov: 07/02/23 Reported Medications [NORVASC] [AMLODIPINE] Calculated Suicide Risk (nurs) No risk Additional Medical History Chronic pancreatitis Peptic ulcer disease Additional Surgical History Left wrist surgery Smoking status for patients 13 years old or older: Never Smoker Physical Exam Vital Signs Vital Signs First Documented: Result Date Time Pulse Ox 97 [...] Signs Reviewed, Vital signs abnormal (htn) Focused PE General/Const General/Const Awake, Alert, Well appearing, Cooperative, Not toxic appearing Distress/Hydration Distress mild. MS Head Head Normocephalic Eyes Eyes Atraumatic, PERRL Ears/Nose/Throat Ears/Nose/Throat Airway patent, Mucous membranes moist, Pharynx NL Resp/Chest Respiratory/Chest Breath sounds NL, Breath sounds = bilat, No respiratory distress, No rales, No rhonchi, No wheezing Cardiovascular Cardiovascular Heart rate NL, Regular rhythm, Heart sounds NL, Peripheral circulation NL Abdomen/GI Abdomen/GI Atraumatic, BS normoactive, No distention, No hernia, No palpable mass, No pulsatile mass Tenderness/Guarding/Rebound Tender epigastric, Tender diffuse. MS Back Back Inspection NL, Non-tender, No CVA tenderness Neurologic Neurologic Oriented X3, Speech NL, No motor deficits, No sensory deficits Interpretation Diagnostics Lab Results Interpretation Results Laboratory Tests 07/23/2336: [Embedded Image Not Available] Laboratory Tests: 11/09 0536 Chemistry Sodium (137 - 145 MMOL/L) 141 [...] # (Auto) (1.0 - 3.8 K/mm3) 2.61 Early # (Auto) (0.1 - 0.8 K/mm3) 0.68 Eos # (Auto) (0.0 - 0.2 K/mm3) 0.04 Baso # (Auto) (0.0 - 0.2 K/mm3) 0.02 Nucleated RBCs # (Man) (0.0 - 0.1 K/mm3) 0.00 Urines Urine Color (YELLOW) YELLOW Urine Appearance (CLEAR) CLEAR Urine pH (5.0 - 9.0) 6.0 Ur Specific [place] (1.003 - 1.030) 1.025 Urine Protein (NEGATIVE [...] Urine Mucus (NONE #/LPF) MODERATE H Recent Impressions: CAT SCAN - CT ABD PELVIS W/CONT 07/23 0750 Report Impression - Status: SIGNED Entered: 07/23/2023 0831 IMPRESSION: 1. No acute abnormality. Impression By: [email or web address] - Kiara Meza MD Re-Evaluation MDM Free Text MDM Notes Free Text MDM Notes Patient appears to be in moderate distress, nontoxic in appearance. No leukocytosis, no transaminitis, lipase within normal limits. UA was negative for UTI. CT AP with contrast showed normal pancreas, normal gallbladder with no dilation, no SBO or appendicitis. )( Re-Evaluation/Progress #1 Text/Dict Note Patient received IV fluids, Zofran, morphine for pain relief. Patient reports no improvement in pain after morphine. Patient is hemodynamically stable at this time, with no evidence of acute disease. Patient is clear for discharge at this time, instructed to follow-up with his PCP, GI doctor and urologist. Patient reports talking with his GI doctor's office while in the ED, and will go see [facility] in [place] after discharge. We will send Norflex, Bentyl, and Toradol to his home pharmacy. Instructed to return to the ED if symptoms worsen. Patient reports understanding and agrees with the treatment plan. Time of Re-Eval 0907 )( Re-Eval Status Unchanged ED Course Medication(s) Ordered Medication(s) Ordered: Central Nervous System Agents Sig/Shirin Start time Last [...] DC 07/23 IV 07/24 0536 0546 Differential Diagnosis )( Differential Diagnosis Abscess, Acute abdominal pain, Appendicitis, Bladder outlet obstruct, Bowel obstruction, Cholangitis, Cholecystitis, Cholelithiasis, Diverticular disease, GERD, Inflam bowel disease, Pancreatitis, Peptic ulcer disease, Trauma abdominal, Urinary retention, Urinary tract infection Patient Discharge Departure Vital Signs/Condition Vital Signs First Documented: Result Date Time Pulse Ox 97 [...] of this entry have been reviewed. Clinical Impression Clinical Impression Primary Impression: Abdominal pain Disposition Decision Discharge )( Discharged to Home Yes )( Time 912 )( Date 07/23/23 Discharge/Care Plan Counseled Regarding Diagnosis, Lab results, Imaging studies, Prescriptions, Need for follow-up, When to return to ED (Auto) Prescriptions Current Visit Scripts ORPHENADRINE ER (NORFLEX) 100 MG PO BID 10 Days #20 TABS DICYCLOMINE (BENTYL) 10 MG PO Q6H PRN PRN ABDOMINAL PAIN/CRAMPING DICYCLOMINE (BENTYL) 10 MG PO Q6H PRN PRN ABDOMINAL PAIN/CRAMPING #30 CAPS KETOROLAC (TORADOL) 10 MG PO Q6H PRN PRN PAIN KETOROLAC (TORADOL) 10 MG PO Q6H PRN PRN PAIN #20 TABS Prescriptions Reviewed Risks, Benefits, Alternative treatment Patient Instructions Abdominal Pain Departure Forms WORK/SCHOOL EXCUSE VARIABLE WORK/SCHOOL EXCUSE-CAREGIVER Jessie Paul 07/23/23 0917: Patient Discharge Departure Discharge/Care Plan Referrals Provider Referral: Karina Nascimento MD Address: [address] [place] [address] Provider Referral: Peter Pérez MD Address: [address] [place] [address] Provider Referral: Adebayo Bagley BULL CHAIN OPERATOR Address: [address] [place] [address] Provider Referral: Carola Brooks BULL CHAIN OPERATOR Address: [address] [place] [address] Provider Referral: Mary Ibarra MD Address: [address] [place] [address] Provider Referral: Woody Roman BULL CHAIN OPERATOR Address: [address] [place] [address] [address] [place] [address] Supervising Physician Note Resident Saw Pt This patient was seen by a resident. I have personally seen the patient, performed the critical or rodriguez portions of the service, and participated in the management of the patient. I have reviewed and agree with the resident's note, and I have reviewed all labs, ECGs, and imaging studies or reports. I agree with this resident's findings, exam and plan. This a 52-year-old male history of chronic pancreatitis [...] for patient's abdominal pain. 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 Discussed no indication for admission at this facility which patient understands and agrees with plan. Patient is discharged home with analgesia antiemetics at 1039 at 1048 RPT #:[id number] END OF REPORT [facility] 2023-07-23 05:32:00 [facility] ([facility]) EMERGENCY PROVIDER REPORT REPORT#:[id number] REPORT STATUS: Signed DATE:07/23/23 TIME: 0532 PATIENT: NOAH PUTNAM UNIT #: [id number] ROOM/BED: AGE: 52 SEX: M PCP PHYS: SERVICE DT: AUTHOR: Rita Ashford LOCATION: [facility] * ALL edits or amendments must be made on the electronic/computer document * Provider in Triage - Adult Provider in Triage Initial Greet Date/Time 07/23/23 05 Greet Note I have greeted and performed a focused rapid initial assessment of this patient. A comprehensive ED assessment and evaluation of the patient, analysis of all test results, and completion of the medical decision-making process will be conducted by additional ED providers. HPI Chief Complaint Abdominal pain, Nausea/vomiting/diarrhea PE General/Const No acute distress Respiratory/Chest No respiratory distress MSE Complete The medical screening examination is complete. The patient does not need immediate medical attention. There are no acute symptoms of sufficient severity that the patient could reasonably be expected to develop serious impairment or dysfunction of body functions or organs. Free Text PIT Notes Free Text PIT Notes 52-year-old male with a past medical history of chronic pancreatitis presents the emergency room with diffuse abdominal pain and burning that started a few days ago. PMH-Provider in Triage Stated Complaint ABD PAIN, N/V Allergies Coded Allergies: bee venom protein (honey bee) (Severe, THROAT SWELL 07/23/23) Home Medications Active Scripts oxyCODONE/APAP (PERCOCET 5/325 MG) 1 TAB PO Q6H PRN PRN PAIN SCALE 7-10, SECOND LINE oxyCODONE/APAP (PERCOCET 5/325 MG) 1 TAB PO Q6H PRN PRN PAIN SCALE 7-10, SECOND LINE #24 TABS Prov: 07/02/23 Reported Medications [NORVASC] [AMLODIPINE] Additional Medical History Chronic pancreatitis Peptic ulcer disease Additional Surgical History Left wrist surgery at 0533 RPT #[id number] END OF REPORT [facility] 2023-07-01 23:26:00 [id number] [place], [place] PATIENT NAME: NOAH PUTNAM ADMIT DATE: 07/01/23 ACCOUNT NO: [id number] ROOM NO: AGE: 52 REPORT TYPE: ELECTROCARDIOGRAM SEX: M : 74 ADMITTING PHYSICIAN: ATTENDING PHYSICIAN:Jessie Gleason DO Order: [id number] Test Reason : abdominal pain Test Date/Time Stamp: ThuJul 01 2023 23:26:35 Blood Pressure : / mmHG Vent. Rate : 088 BPM Atrial Rate : 088 BPM P-R Int : 166 ms QRS Dur : 076 ms QT Int : 346 ms P-R-T Axes : 062 032 018 degrees QTc Int : 418 ms Sinus rhythm with frequent premature ventricular complexes Nonspecific T wave abnormality Abnormal ECG No previous ECGs available Confirmed by JESSIE GLEASON DO ([id number]), pictures editor MARCIA GALVEZ ([id number]) on 07/20/2023 3:03:25 PM Referred By: Self Referred Confirmed by:JESSIE GLEASON DO at 1503 PATIENT NAME: NOAH PUTNAM [facility] 2023-07-01 23:22:00 [facility] ([facility] OR [facility] EMERGENCY PROVIDER REPORT REPORT#:[id number] REPORT STATUS: Signed DATE:07/01/23 TIME: 2321 PATIENT: NOAH PUTNAM UNIT #: [id number] ROOM/BED: AGE: 52 SEX: M PCP PHYS: Undefined Provider SERVICE AUTHOR: Jessie Gleason DO * ALL edits or amendments must be made on the electronic/computer document * HPI-Abd Pain M 40 and Over General Confirmed Patient Yes Patient Type New patient Initial Greet Date/Time 07/01/23 2302 Presentation Chief Complaint Abdominal pain Sudden in Onset? No Free Text HPI Notes Free Text HPI Notes 52-year-old male presents with complaint of abdominal pain. Patient states that he has been having abdominal pain since January. [...] [facility] and was referred to [facility]. Patient states that he went to [facility] and was discharged with tramadol after [...] cause any pain. Review of Systems ROS Statements All systems rev neg except as marked. Focused Review of Systems GI Reports: Abdominal pain, Anorexia, Diarrhea. Past Medical History - Adult Stated Complaint ABDOMINAL PAIN DIARRHEA WEAK DIZZY Allergies Coded Allergies: No Known Allergies (04/19/18) Home Medications Reported Medications [NORVASC] [AMLODIPINE] Review of Nursing Notes Rev avail, and agree Additional Medical History Chronic pancreatitis Peptic ulcer disease Additional Surgical History Left wrist surgery Smoking status for patients 13 years old or older: Never Smoker Physical Exam Vital Signs Vital Signs First Documented: Result Date Time Pulse Ox 98 [...] 2256 Review of Vital Signs Reviewed Focused PE General/Const General/Const Awake, Alert MS Head Head Atraumatic, Normocephalic Eyes Eyes PERRL, EOMI Ears/Nose/Throat Ears/Nose/Throat Airway patent, Mucous membranes moist Resp/Chest Respiratory/Chest Breath sounds = bilat, No respiratory distress Cardiovascular Cardiovascular Regular rhythm, Heart sounds NL Abdomen/GI Abdomen/GI Soft, No guarding, No rebound Text/Dict Notes Voluntary guarding, diffuse tenderness to palpation MS Back Back Atraumatic Neurologic Neurologic Oriented X3, Speech NL, No motor deficits, No sensory deficits, CN II - XII intact, Cerebellar NL, Memory NL, Gait NL Interpretation Diagnostics Lab Results Interpretation Results Laboratory Tests 07/01/232302: [Embedded Image Not Available] Laboratory Tests: 07/01 2303 Chemistry Sodium (133 - [...] % (Auto) (24 - 44 %) 41.1 Early % (Auto) (0.0 - 4.0 %) 7.4 [...] (0.0 - 0.8 x10 3/uL) 0.67 Recent Impressions: CAT SCAN - CT ABD PELVIS W/CONT 07/01 2340 Report Impression - Status: SIGNED Entered: 07/02/2023 0009 IMPRESSION: No acute findings in the abdomen or pelvis. Mildly enlarged prostate with a nodular component protruding into the bladder base. Correlation with PSA is recommended. Impression By: [email or web address] - Jennifer Bass MD ECG #1 Interpretation Text/Dict Note Sinus rhythm with frequent PVCs Nonspecific T wave abnormality Date 07/01/23 Time 2330 Interpreted by ED physician NL ECG Interpretation Normal rate, Normal sinus rhythm, No acute ischemic changes, No STEMI, Normal QRS, Normal ST waves, Normal axis, Normal intervals Rate 88 Re-Evaluation MDM )( Re-Evaluation/Progress #1 Text/Dict Note Patient is reporting improvement of his abdominal pain after treatment in the ED. Patient's labs are relatively unremarkable other than a mildly elevated lipase. Patient CT unremarkable other than enlarged prostate. Patient's reports a known history of enlarged prostate. Patient currently has a repeat follow-up with a specialist regarding his pancreatitis on the of this month. At this time patient does not appear to require inpatient treatment as his pain is not out of proportion to exam. Patient is tolerating p.o. hydration. Additionally patient reports improvement of his symptoms after treatment in the ED. Patient is currently taking Protonix for his history of peptic ulcer disease and he has a prescription for antiemetics. Patient was recently prescribed tramadol and states that does not help with his pain. Patient directed to stop taking the tramadol and will prescribe stronger analgesics. Patient encouraged to keep his follow-up appointment next week. Patient verbalized understand directions. )( Re-Eval Status Improved ED Course Medication(s) Ordered Medication(s) Ordered: Central Nervous System Agents Sig/Shirin Start time Last [...] 07/01 2325 DC 07/01 IV 232 Differential Diagnosis )( Differential Diagnosis Appendicitis, Constipation, GERD, Pancreatitis Patient Discharge Departure Vital Signs/Condition Vital Signs First Documented: Result Date Time Pulse Ox 98 [...] of this entry have been reviewed. Clinical Impression Clinical Impression Primary Impression: Chronic pancreatitis Disposition Decision Discharge )( Discharged to Home Yes )( Time 0054 )( Date 07/02/23 Discharge/Care Plan Counseled Regarding Diagnosis, Lab results, Imaging studies, Prescriptions, Need for follow-up, When to return to ED Rx Drug Database Reviewed Yes (Auto) Prescriptions Current Visit Scripts HYDROcodone/APAP (HYDROcodone/APAP 10/325) 1 TAB PO Q8H PRN PRN PAIN SCALE 7-10, SECOND LINE HYDROcodone/APAP (HYDROcodone/APAP 10/325) 1 TAB PO Q8H PRN PRN PAIN SCALE 7-10, SECOND LINE #21 TABS Prescriptions Reviewed Risks, Benefits, Alternative treatment Patient Instructions ED Pancreatitis Discharge Note I have spoken with the patient and/or caregivers. I have explained the patient's condition, diagnoses and treatment plan based on the information available to me at this time. I have answered the patient's and/or caregiver's questions and addressed any concerns. The patient and/or caregivers have as good an understanding of the patient's diagnosis, condition and treatment plan as can be expected at this point. The vital signs have been stable. The patient's condition is stable and appropriate for discharge from the emergency department. The patient will pursue further outpatient evaluation with the primary care physician or other designated or consulting physician as outlined in the discharge instructions. The patient and/or caregivers are agreeable to this plan of care and follow-up instructions have been explained in detail. The patient and/or caregivers have received these instructions in written format and have expressed an understanding of the discharge instructions. The patient and/or caregivers are aware that any significant change in condition or worsening of symptoms should prompt an immediate return to this or the closest emergency department or a call to 911. Quality Measures BP F/U for HTN F/u with PCP/other doc Tobacco Screening/Cessation Denies tobacco use at 0109 RPT #[id number] END OF REPORT [facility] 2023-05-20 15:08:22 Formatting of this n ote is different from the original. Chief Complaint Patient presents with Consultation Andreia Regalado CMA I [facility] 2023-05-07 23:22:46 Formatting of this n ote might be different from the original. Discharge instructions reviewed with patient. Follow up care discussed. All questions answered by RN. Patient ambulatory to [facility]. Patient in possession of all belongings. RR even and unlabored, VSS, NAD noted. Steffanie Easley RN [facility] 2023-05-07 23:01:52 Formatting of this n ote might be different from the original. DC hold for fluid admin. [facility] 2023-05-07 22:51:08 Formatting of this n ote might be different from the original. This RN chaperoned DO for rectal exam. [facility] 2023-05-07 20:30:00 Formatting of this n ote might be different from the original. Noah Putnam is a 52 year old [...] Patient reports he was seen at the [facility] a few days ago and [...] RR even and unlabored. VSS. NAD noted. [facility] 2023-05-07 17:35:38 Formatting of this n ote might be different from the original. Noah Putnam is a 52 year old male presenting to ED with c/o abd pain. Patient reports hx of pancreatitis. Patient reports began having blood in stool today. Patient to green chairs due to ED saturation Helene Newell RN [facility] 2023-05-02 00:32:03 Formatting of this n ote might be different from the original. DC instructions and prescriptions for protonix and reglan reviewed with patient. He will fill prescriptions and take them as directed. He will follow up with his PCP as directed. He will increase his oral intake of fluids to maintain hydration. He will return to the ED if his symptoms persist or worsen. He was Dc'd ambulatory-alert and in no distress. Marcelo Tsai RN [facility] 2023-05-01 21:28:00 Formatting of this n ote might be different from the original. Patient states: "I came here last week for dehydration and I think it's the same thing now. I'm drinking fluids and keeping myself hydrated but since 3 days I feel weak, sweating more, and my body is cramping. I also vomited 8x today. I worked all day out in the sun today." Lelo Carbajal RN [facility] 2023-04-22 13:03:22 Formatting of this n ote might be different from the original. Pt given printed and verbal discharge instructions regarding abd pain, encouraged hydration, Prescriptions provided Discussed ibuprofen and to take with food to avoid GI distress, alternate with Tylenol to help with pain and/or fever Discussed nedication side affects and to avoid driving/operating machinery/or engaging in activities requiring alertness while taking. Pt verbalized understanding of instructions,pt encouraged to follow up with pcp and or specialist Advised to seek medical attention for new/prolonged/worsening of symptoms, No adverse reaction to meds given in ER noted upon discharge PIV d'cd, dressing to site, catheter in tact. Awake, alert oriented, resp reg unlabored, skin w/d, pt leaving in no apparent distress, Jacki Rodriguez RN [facility] 2023-04-22 10:35:21 Formatting of this n ote might be different from the original. Patient ate some potatoes from meal tray, states stomach began to cramp. Patient provided juice, states that his boss is going to being him some food that he will also try but states stomach is cramping. Caty Pang RN [facility] 2023-04-22 10:28:09 Formatting of this n ote might be different from the original. Patient provided meal tray. T [facility] 2023-04-22 10:18:30 Formatting of this n ote might be different from the original. Patient encouraged to eat, advised of plan of care. [facility] 2023-04-22 06:30:24 Formatting of this n ote might be different from the original. Second liter of fluids completed, pt states he is still unable to urinate, RN gave pt a urinal and encouraged pt to try, pt stated that he will but he does not feel like going yet. Carol Siddiqui RN [facility] 2023-04-22 05:20:00 Formatting of this n ote might be different from the original. Pt walked to the bathroom, cannot void. Provider informed, orders received [facility] 2023-04-22 03:56:00 Formatting of this n ote might be different from the original. CC: Pt states he was working in the heat yesterday and started feeling dizzy, nauseated, having cramps. He states that he has vomited clear liquid several times since yesterday morning, having abdominal cramping, and having headache. x since 1000 yesterday. He states he hasn't been able to urinate since 1000 despite drinking water. PMHx: HTN, chronic pancreatitis Awake, alert, oriented, resp reg unlabored, skin warm, color appropriate for race, moves all ext without difficulty, amb with steady gait Carol Wu RN [facility] 2023-04-22 03:50:00 Formatting of this n ote is different from the original. Patient Care assumed at shift change. Off-going Physician: Ayesha Time of Transfer of Care: 7:46 AM Summary: Noah Putnam is a 52 year old male presenting with chief complaint of cramping, headaches, not urinating. He was found to have significant EARNEST suspected to be very dehydrated. Given 3L bolus of fluids and only now urinated. Pending prior to disposition: Labs (urine) Current interventions: Medications NaCl 0.9% (NS) IV infusion 1,000 mL (0 mL Intravenous Stopped 04/22/23 0754) NaCl 0.9% (NS) bolus infusion 1,000 mL (0 mL IV Infusion Stopped 04/22/23 0528) metoclopramide HCl (REGLAN) injection 10 mg (10 mg Slow IV Push Given 04/22/23 042) ketorolac (TORADOL) injection 30 mg (30 mg Slow IV Push Given 04/22/23 042) diphenhydrAMINE (BENADRYL) injection 25 mg (25 mg Slow IV Push Given 04/22/23420) NaCl 0.9% (NS) bolus infusion 1,000 mL (0 mL IV Infusion Stopped 04/22/23 0630) maalox:diphenhydrAMINE:lidoca ine 2 % viscous 1:1:1 (FIRST-MOUTHWASH BLM) oral suspension 15 mL (15 mL Oral Given 04/22/23 2874) NaCl 0.9% (NS) bolus infusion 500 mL (500 mL IV Infusion New Bag 04/22/23 5690) haloperidol lactate (HALDOL) injection 2.5 mg (2.5 mg Intravenous Given 04/22/23 1101) iopamidol (ISOVUE 370-500 mL) injection 70 mL (70 mL Intravenous Given 04/22/23 1121) Results: Labs Reviewed CBC WITH DIFF - Abnormal; Notable for the following components: Result Value RBC 5.60 (*) HGB 17.2 (*) MCHC 35.8 (*) MPV 9.6 (*) LYMPH x10^3 3.70 (*) All other components within normal limits COMP. METABOLIC PANEL (74253) - Abnormal; Notable for the following components: BUN 24 (*) GLUCOSE 114 (*) CREATININE 1.42 (*) T PROTEIN 9.2 (*) All other components within normal limits Narrative: Association of Glomerular Filtration Rate (GFR) and Staging of Kidney Disease* + +---- + + | GFR (mL/min/1.73 m2) | With Kidney Damage | Without Kidney Damage + +---- + + | >90 | Stage one | Normal + +---- + + | 60-89 | Stage two | Decreased GFR + +---- + + | 30-59 | Stage three | Stage three + +---- + + | 15-29 | Stage four | Stage four + +---- + + | <15 (or dialysis) | Stage five | Stage five + +---- + + *Each stage assumes the associated GFR level has been in effect for at least three months. Stages 1 to 5, with or without kidney disease, indicate chronic kidney disease. Notes: Determination of stages one and two (with eGFR >59mL/min/1.73 m2) requires estimation of kidney damage for at least three months as defined by structural or functional abnormalities of the kidney, manifested by either: Pathological abnormalities or Markers of kidney damage (including [...] (GFR) and Staging of Kidney Disease* + +---- + + | GFR (mL/min/1.73 m2) | With Kidney Damage | Without Kidney Damage + +---- + + | >90 | Stage one | Normal + +---- + + | 60-89 | Stage two | Decreased GFR + +---- + + | 30-59 | Stage three | Stage three + +---- + + | 15-29 | Stage four | Stage four + +---- + + | <15 (or dialysis) | Stage five | Stage five + +---- + + *Each stage assumes the associated GFR level has been in effect for at least three months. Stages 1 to 5, with or without kidney disease, indicate chronic kidney disease. Notes: Determination of stages one and two (with eGFR >59mL/min/1.73 m2) requires estimation of kidney damage for at least three months as defined by structural or functional abnormalities of the kidney, manifested by either: Pathological abnormalities or Markers of kidney damage (including [...] (GFR) and Staging of Kidney Disease* + +---- + + | GFR (mL/min/1.73 m2) | With Kidney Damage | Without Kidney Damage + +---- + + | >90 | Stage one | Normal + +---- + + | 60-89 | Stage two | Decreased GFR + +---- + + | 30-59 | Stage three | Stage three + +---- + + | 15-29 | Stage four | Stage four + +---- + + | <15 (or dialysis) | Stage five | Stage five + +---- + + *Each stage assumes the associated GFR level has been in effect for at least three months. Stages 1 to 5, with or without kidney disease, indicate chronic kidney disease. Notes: Determination of stages one and two (with eGFR >59mL/min/1.73 m2) requires estimation of kidney damage for at least three months as defined by structural or functional abnormalities of the kidney, manifested by either: Pathological abnormalities or Markers of kidney damage (including [...] Report Dictated by Resident: Peter Lagunas Additional Notes: ED Course as of 04/22/23 1239 ThuApr 22, [address] confirms some pancreatitis. Given tramadol script and phenergan as well as zofran. Recommended to allow bowel rest and return as needed. [WF] 1006 Due to capacity, internal recommends transfer. However, Dr Reyna reports trying another IV bolus and food. [WF] ED Course User Index [WF] Natali Alexander DO Diagnosis/Impression as of 04/22/23 1239 Heat exhaustion, initial encounter Dehydration, moderate EARNEST (acute kidney injury) Abdominal pain, unspecified abdominal location Acute pancreatitis, unspecified complication status, unspecified pancreatitis type Medical Decision Making Earnest is significant. Urine shows no infection However patient is still complaining of abdominal cramping and nausea. H/o chronic pancreatitis. Given Gi cocktail Will repeat Cr and include CK and lipase levels. Problems Addressed: Abdominal pain, unspecified abdominal location: acute illness or injury Acute pancreatitis, unspecified complication status, unspecified pancreatitis type: chronic illness or injury with exacerbation, progression, or side effects of treatment EARNEST (acute kidney injury): acute illness or injury Dehydration, moderate: acute illness or injury Heat exhaustion, initial encounter: acute illness or injury Amount and/or Complexity of Data Reviewed Labs: ordered. Radiology: ordered. Risk Prescription drug management. Parenteral controlled substances. Disposition: Discharged Home Diagnoses that have been ruled out: None Diagnoses that are still under consideration: None Final diagnoses: Heat exhaustion, initial encounter Dehydration, moderate EARNEST (acute kidney injury) Abdominal pain, unspecified abdominal location Acute pancreatitis, unspecified complication status, unspecified pancreatitis type Natali Alexander DO 04/22/[address] [facility] 2023-04-16 08:49:36 Formatting of this n ote might be different from the original. Pt requesting more medication, provider informed. Attempted [...] not discharge papers complaining about the service. Rachana Pratt RN [facility] 2023-04-16 08:17:00 Formatting of this n ote might be different from the original. This RN and Provider at bedside. Provider explaining to pt that some of his pain could be due to being constipated, images showed pt is constipated. T [facility] 2023-04-16 07:56:11 Formatting of this n ote might be different from the original. Pt returns from X-ray, NAD noted, family remains at bedside. T [facility] 2023-04-16 07:41:37 Formatting of this n ote might be different from the original. Pt transported to X-ray via [facility] transport. T [facility] 2023-04-16 07:20:37 Formatting of this n ote might be different from the original. Noah Putnam is a 52 year old [...] bedside. Provider and this RN at bedside. [facility] 2023-04-16 07:08:22 Formatting of this n ote might be different from the original. Noah Putnam is a 52 year old male presenting to ED with c/o abd pain. Patient reports pain for a few weeks. Patient reports was recently seen and diagnosed with pancreatitis. Patient endorses pain to abd and radiates to back. Patient to room for further eval Helene Newell RN [facility] 2023-04-16 06:46:00 Formatting of this n ote is different from the original. 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 Patient reports pain for a few weeks. Patient reports was recently seen and diagnosed with pancreatitis. 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 Progression: Waxing and waning Chronicity: Chronic Context: diet changes and eating Context: not alcohol use, not awakening from sleep, not laxative use, not medication withdrawal, not previous surgeries, not recent illness, not recent sexual activity, not recent travel, not retching, not sick contacts, not suspicious food intake and not trauma Context comment: Recently diagnosed with chronic pancreatitis Relieved by: None tried Worsened by: Eating Ineffective treatments: None tried Associated symptoms: anorexia and fatigue Associated symptoms: no chest pain, no chills, no constipation, no cough, no dysuria, no fever, no hematuria, no nausea, no shortness of breath, no sore throat and no vomiting Risk factors: no alcohol abuse, no aspirin use, not elderly, has not had multiple surgeries, no NSAID use, not obese, not and no recent hospitalization Past Medical History/Immunizations: Past Medical History: Diagnosis Date Gastric ulcer GERD (gastroesophageal reflux disease) Hepatitis C HTN (hypertension) Tetanus received in last 5 years: Yes Childhood immunizations: Up-to-date Allergies: Allergies Allergen Reactions Bee Venom Protein (Honey Bee) Swelling Past Social History: Tobacco Use Never smoked or used smokeless tobacco. Alcohol Use Not Currently. Drug Use Not Currently; Marijuana. Comments: former Past Surgical History: Past Surgical History: Procedure Laterality Date ND FOREARM OR WRIST SURGERY Left Review of [...] 96 % Measured on Room air Physical Exam Vitals and nursing note reviewed. Constitutional: General: He [...] Content: Thought content normal. Judgment: Judgment normal. Radiology: XR ABDOMEN 2 VW Preliminary Result EXAM: XR [...] Report Dictated by Resident: Peter Lagunas Lab Results: Lab Results CBC WITH DIFF - Abnormal Result [...] 0.01 - 0.09 10*3/uL COMP. METABOLIC PANEL (98288) - Abnormal NA 142 135 - 145 [...] - Normal TROPONIN I 0.020 <=0.034 ng/mL EKG: If EKG completed, see Procedure Note. Orders and Treatments: Orders Placed This Encounter Procedures XR ABDOMEN 2 VW CBC WITH DIFF COMP. METABOLIC PANEL (78585) LIPASE TROPONIN I Orders Placed This Encounter Medications NaCl 0.9% (NS) bolus infusion 1,000 mL ketorolac (TORADOL) injection 30 mg dicyclomine (BENTYL) injection 20 mg famotidine (PEPCID (PF)) injection 20 mg lactulose (CEPHULAC) solution 45 mL prtmrr-qmtlmjtd-vnayvrg (CREON) 12,000-38,000 -60,000 unit capsule 2 capsule enalaprilat (VASOTEC I.V.) injection 1.25 mg meqyrk-xykjvebm-hfnhuop (CREON) 3,000-9,500- 15,000 unit capsule hyoscyamine sulfate (LEVSIN/SL) 0.125 mg sublingual tablet famotidine (PEPCID) 20 mg tablet bisacodyL 5 mg EC tablet First Provider Eval: ED Events Date/Time Event User Comments 04/16/23703 Medical Screening Begins BLOSSOM CANALES -- 04/16/23703 First Provider Evaluation BLOSSOM CANALES -- No notes of EC Admission Criteria type on file. ED COURSE Diagnosis/Impression as of 04/16/23 0849 Chronic pancreatitis, unspecified pancreatitis type Constipation by delayed colonic transit Chronic hypertension Procedures: Procedures MDM: Medical Decision Making Problems Addressed: Chronic hypertension: chronic illness or injury Chronic pancreatitis, unspecified pancreatitis type: chronic illness or injury with exacerbation, progression, or side effects of treatment Constipation by delayed colonic transit: complicated acute illness or injury with systemic symptoms Amount and/or Complexity of Data Reviewed External Data Reviewed: labs, radiology and notes. Details: From his previous visit reviewed Labs: ordered. Decision-making details documented in ED Course. Radiology: ordered and independent interpretation performed. Decision-making details documented in ED Course. Risk OTC drugs. Prescription drug management. Flowsheet Documentation: Scoring Tools: No data recorded Disposition/Condition: ED Disposition ED Disposition Disch - Home Condition Stable Comment -- Discharge Medications: Patient's Medications START taking these medications BISACODYL 5 MG EC TABLET Take 1 tablet by mouth once daily as needed for Constipation. FAMOTIDINE (PEPCID) 20 MG TABLET Take 1 tablet by mouth in the morning and 1 tablet in the evening. HYOSCYAMINE SULFATE (LEVSIN/SL) 0.[address] 2 tablets under the tongue every 6 (six) hours as needed (Abdominal pain or cramping). YTFXMG-WNMNLAGB-VLBIPME (CREON) 3,000-9,500- 15,000 UNIT CAPSULE Take 1 [...] taking these medications No medications on file Follow-up: Electronically signed by: Adelaide Goodwin MD 04/16/[address] [facility] 2023-04-01 03:22:04 Formatting of this n ote might be different from the original. Pt given printed and verbal discharge instructions regarding generalized abdominal pain, n/v, chronic pancreatitis, enlarged prostate, encouraged hydration. Prescriptions provided. Discussed antibiotic therapy and to take until all completed unless adverse reaction occurs - if occurs, discontinue medication and follow up with pcp/seek medical attention Discussed tramadol side affects and to avoid driving/operating machinery/or engaging in activities requiring alertness while taking. Pt verbalized understanding of instructions, pt awake alert oriented, resp reg unlabored, skin w/d, color appropriate for race, moves all ext well,pt encouraged to follow up with pcp. Advised to seek medical attention for new/prolonged/worsening of symptoms. No adverse reaction to meds given in ER noted upon discharge. PIV d'cd, dressing to site, catheter in tact. Awake, alert oriented, resp reg unlabored, skin w/d, pt leaving amb with steady gait, in no apparent distress. Lelo Carbajal RN [facility] 2023-04-01 00:02:06 Formatting of this n ote might be different from the original. History of chronic pancreatitis. Mid upper abdominal pain for 4 days. Complaining of oily stool. Vomited x2. ROT Anuradha Nolen RN [facility]
[2024-04-21] MEDS ORDERED: ONDANSETRON 4 MG/2 ML VIAL ONE (23:33)
[2024-04-21] MEDS ORDERED: NA CHLORIDE 0.9% 1,000 ML ONE (23:33)
[2024-04-21] MEDS ORDERED: METHOCARBAMOL 1,000 MG/10 ML VIAL ONE (23:43)
[2024-04-21] MEDS ORDERED: NA CHLORIDE 0.9% 100 ML ONE (23:43)
[2024-04-21 23:54] LABS: Absolute Lymphocytes (CBC) 2.3 K/uL (0.7-4.9); Absolute Neutrophil 7.8 K/uL (1.8-8.0); Basophils % 0.4 % (0-1.3); Eosinophils % 0.3 % (0-4.4); Hematocrit 41.8 % (39.6-49.0); Hemoglobin 14.4 g/dL (13.6-17.9); Lymphocytes % 20.7 % (15.3-44.8); MCH 30.2 pg (27.0-35.0); MCHC 34.5 g/dL (32.0-36.0); MCV 87.7 fL (80-100); Monocytes % 9.2 % (3.3-12.3); Neutrophils % 69.4 % (41.7-73.7); Nucleated Red Blood Cells % 0.2 % (0-0); Platelets 193 thou/uL (152-406); RBC Red Blood Cell Count 4.77 M/uL (4.33-5.43); Red Cell Distribution Width 13.9 % (12.1-15.2)
[2024-04-22 00:15] LABS: ALT/SGPT 29 U/L (16-61); AST/SGOT 28 U/L (15-37); Albumin 3.9 g/dL (3.4-5.0); Albumin/Globulin Ratio 0.9 (1.1-1.8); Alkaline Phosphatase 72 U/L (45-117); Anion Gap 12.2 mEq/L (5.0-15.0); BUN Blood Urea Nitrogen 32 mg/dL (7-18); Bicarbonate 23 mEq/L (21-32); Bilirubin Total 0.5 mg/dL (0.2-1.0); Creatine Phosphokinase 583 U/L (39-308); Globulin 4.4 g/dL (2.3-3.5); Glomerular Filtration Rate 44 ml/min (=/>90); Glucose Level 148 mg/dL (74-106); Magnesium 2.4 mg/dL (1.6-2.4); Potassium 4.2 mEq/L (3.5-5.1); Protein, Total 8.3 g/dL (6.4-8.2); Sodium Level 134 mEq/L (136-145); Troponin High Sensitivity 3.3 pg/mL (<58.9)
[2024-04-22 00:19] LABS: Bilirubin Direct < 0.2 mg/dL (0-0.2); Bilirubin Indirect, Calculated 0.3 mg/dL (0.2-0.8)
[2024-04-22 00:49] LABS: Calcium Oxalate Crystals- Ur Few /HPF (None Seen); Renal Epithelial <5 /HPF (None Seen); Specific Gravity 1.024 (1.005-1.030); Sqamous Epithelial <5 /HPF (None Seen); Urine Bacteria None Seen /HPF (<20); Urine Bilirubin NEGATIVE (Negative); Urine Blood Negative (Negative); Urine Clarity Turbid (Clear); Urine Color Yellow (Yellow); Urine Culture Reflex Order NOT NEEDED; Urine Glucose NEGATIVE (Negative); Urine Ketones NEGATIVE (Negative); Urine Microscopic Reflex YN ORDER UMIC; Urine Mucus Slight /HPF (None Seen); Urine Nitrite NEGATIVE (Negative); Urine Protein TRACE (Negative); Urine RBC None Seen /HPF (None Seen); Urine Urobilinogen Normal (Normal); Urine pH 5.5 (5.0-7.0)
[2024-04-22] MEDS ORDERED: NA CHLORIDE 0.9% 1,000 ML ONE (00:55)
--- NOTE | 2024-04-22 01:51 | ER ---
Nurse's Notes [facility] Name: Noah Putnam Age: 53 yrs Sex: Male : 1970 Arrival Date: 04/21/2024 Time: 22:25 Bed 7 Private MD: Diagnosis: Dehydration;Unspecified injury of unspecified kidney, initial encounter;Heat cramp Presentation: 04/21 22:39 Chief complaint: EMS states: earlier at work, patient got dizzy and vomited. Patient tm6 complaining of muscle spasms on chest, back, abdomen, and legs. Not making much urine. 22:39 Method Of Arrival: EMS: [facility] tm6 22:39 Acuity: BREEZY 3 tm6 22:39 Coronavirus screen: Vaccine status: Patient reports receiving the 2nd dose of the covid tm6 vaccine. Ebola Screen: Patient negative for fever greater than or equal to 101.5 degrees Fahrenheit, and additional compatible Ebola Virus Disease symptoms Patient denies exposure to infectious person. Patient denies travel to an Ebola-affected area in the 21 days before illness onset. No symptoms or risks identified at this time. Initial Sepsis Screen: Does the patient meet any 2 criteria? No. Patient's initial sepsis screen is negative. Does the patient have a suspected source of infection? No. Patient's initial sepsis screen is negative. Risk Assessment: Do you want to hurt yourself or someone else? Patient reports no desire to harm self or others. Onset of symptoms was April 22, 2024. 22:39 Care prior to arrival: Medication(s) given: Normal saline infusion, 1000 mL. tm6 Triage Assessment: 23:28 General: Appears uncomfortable, Behavior is calm, cooperative. Pain: Complains of pain tm6 in body cramps. EENT: No signs and/or symptoms were reported regarding the EENT system. Neuro: Level of Consciousness is awake, alert, obeys commands, Oriented to person, place, time, situation. Cardiovascular: Patient's skin is warm and dry. Rhythm is regular. Respiratory: Airway is patent Respiratory effort is even, unlabored, Respiratory pattern is regular, symmetrical. GI: Abdomen is flat, non-distended, Reports cramping. : Reports lowered frequency. Derm: No signs and/or symptoms reported regarding the dermatologic system. Musculoskeletal: Reports cramping in chest, back, abdomen, and legs. Historical: - Allergies: 23:28 Bee Venom; tm6 23:28 Lisinopril; tm6 23:28 amlodipine; tm6 - PMHx: 23:28 chronic kidney disease; Chronic Pancreatitis; Herniated disc; Hypertension; tm6 - PSHx: 23:28 left arm surgery; tm6 - Immunization history:: Client reports receiving the 2nd dose of the Covid vaccine. - Infectious Disease History:: Denies. - Social history:: Smoking status: Patient denies any tobacco usage or history of. Patient/guardian denies using alcohol, street drugs. Screenin:57 [facility] ED Fall Risk Assessment (Adult) History of falling in the last 3 months, tm6 including since admission No falls in past 3 months (0 pts) Confusion or Disorientation No (0 pts) Intoxicated or Sedated No (0 pts) Impaired Gait No (0 pts) Mobility Assist Device Used No (0 pt) Altered Elimination No (0 pt) Score/Fall Risk Level 0 - 2 = Low Risk Oriented to surroundings, Maintained a safe environment, Educated pt \T\ family on fall prevention, incl call for assistance when getting out of bed. Abuse screen: Denies threats or abuse. Denies injuries from another. Nutritional screening: No deficits noted. Tuberculosis screening: No symptoms or risk factors identified. Assessment: 23:30 Reassessment: see triage assesment. tm6 04/22 01:34 Reassessment: Patient appears in no apparent distress at this time. Patient and/or tm6 family updated on plan of care and expected duration. Pain level reassessed. Patient is alert, oriented x 3, equal unlabored respirations, skin warm/dry/pink. Patient states feeling better. 02:19 Reassessment: Patient appears in no apparent distress at this time. Patient and/or tm6 family updated on plan of care and expected duration. Pain level reassessed. Patient is alert, oriented x 3, equal unlabored respirations, skin warm/dry/pink. Vital Signs: 04/21 23:28 BP 157 / 82; Pulse 95; Resp 19; Temp 98.5(O); Pulse Ox 99% on R/A; Weight 121.11 kg; tm6 Height 6 ft. 5 in. ; Pain 4/10; 23:58 BP 143 / 76; Pulse 94; Pulse Ox 97% on R/A; Pain 0/10; tm6 04/22 01:34 BP 138 / 90; Pulse 78; Pulse Ox 97% on R/A; Pain 0/10; tm6 02:18 BP 139 / 80; Pulse 77; Resp 19; Temp 98.4(O); Pulse Ox 99% on R/A; Pain 0/10; tm6 04/21 23:28 Body Mass Index 31.66 (121.11 kg, 195.58 cm) tm6 04/21 23:28 Pain Scale: Adult tm6 23:58 Pain Scale: Adult tm6 04/22 01:34 Pain Scale: Adult tm6 02:18 Pain Scale: Adult tm6 ED Course: 04/21 22:29 Patient arrived in ED. gm2 22:29 Maintain EMS IV. Dressing intact. Good blood return noted. Site clean \T\ dry. Gauge \T\ tm 6 site: 20g r wrist. Flushed with 10 mL NS. 22:33 Jimbo Galvan PA is PHCP. cp 22:33 Aram Bianchi MD is Attending Physician. cp 22:39 Patient has correct armband on for positive identification. Bed in low position. Call tm6 light in reach. Side rails up X2. Provided Education on: use of call greenberg. Client placed on continuous cardiac and pulse oximetry monitoring. NIBP monitoring applied. delivery tech on. Pulse ox on. NIBP on. Door closed. Noise minimized. Lights dimmed. Warm blanket given. Pillow given. 22:39 Arm band placed on right wrist. tm6 22:55 XRAY Chest (1 view) In Process Unspecified. EDMS 23:12 Adrienne Ryan, RN is Primary Nurse. tm6 23:41 Basic Metabolic Panel Sent. tm6 23:41 CBC with Diff Sent. tm6 23:41 LFT's Sent. tm6 23:41 Magnesium Sent. tm6 23:41 Troponin HS Sent. tm6 23:41 CK Sent. tm6 23:41 Urinalysis w/ reflexes Sent. tm6 23:58 EKG done, by ED staff, reviewed by Jimbo ANDERSON. tm6 04/22 01:23 Troponin HS Sent. tm6 02:20 Triage completed. tm6 02:20 No provider procedures requiring assistance completed. IV discontinued, intact, tm6 bleeding controlled, No redness/swelling at site. Pressure dressing applied. Administered Medications: 04/21 23:35 CANCELLED (Physician Discretion): diazepam5 mg IVP once cp 23:35 CANCELLED (Physician Discretion): ativan1 mg IVP once cp 23:41 Drug: NS 0.9% IV 1000 ml IV at 1 bolus Per protocol; 1000 mL bolus Route: IV; Rate: 1 tm6 bolus; Site: right wrist; 04/22 00:16 Follow up: Response: No adverse reaction; IV Status: Completed infusion; IV Intake: tm6 1000ml 04/21 23:56 Drug: Methocarbamol IVPB 1 grams IVPB once over 1 hrs; (mix in NS 100 mL) Route: IVPB; tm6 Infused Over: 1 hrs; Site: right wrist; 04/22 00:25 Follow up: Response: No adverse reaction; IV Status: Completed infusion; IV Intake: tm6 100ml 01:15 Drug: NS 0.9% IV 1000 ml IV at 1 bolus Per protocol; 1000 mL bolus Route: IV; Rate: 1 tm6 bolus; Site: right wrist; 02:17 Follow up: Response: No adverse reaction; IV Status: Completed infusion; IV Intake: tm6 1000ml 01:23 Not Given (Patient Refused): ondansetron 4 mg IVP once; over 2 minutes tm6 Medication: 02:21 VIS not applicable for this client. tm6 Intake: 00:16 IV: 1000ml; Total: 1000ml. tm6 00:25 IV: 100ml; Total: 1100ml. tm6 02:17 IV: 1000ml; Total: 2100ml. tm6 Outcome: 01:50 Discharge ordered by MD. cp 02:20 Discharged to home ambulatory, with family, tm6 02:20 Condition: stable 02:20 Discharge instructions given to patient, family, Instructed on discharge instructions, follow up and referral plans. medication usage, Demonstrated understanding of instructions, follow-up care, medications, Prescriptions given X 1, 02:21 Patient left the ED. tm6 Signatures: Dispatcher [employer] EDMS Jimbo Galvan PA PA cp Mitchell, Ginger gm2 Adrienne Ryan RN RN tm6
--- NOTE | 2024-04-22 01:51 | EDPHYS ---
Physician Documentation [facility] Name: Noah Putnam Age: 53 yrs Sex: Male : 1970 Arrival Date: 04/21/2024 Time: 22:25 Bed 7 Private MD: ED Physician Aram Bianchi HPI: 04/21 22:45 This 53 yrs old Black Male presents to ER via EMS with complaints of Abdominal Cramping cp - whole body cramping/muscle spasms. 22:45 The patient or guardian reports chest pain that is located primarily in the anterior cp chest wall, left. 22:45 Onset: today. Associated signs and symptoms: Pertinent positives: nausea, vomiting, cp generalized cramping. The chest pain is described as cramping. 22:45 Duration: The patient or guardian reports a single episode, that is still ongoing, and cp worsening. Patient reports symptoms started tonight after work. Historical: - Allergies: 23:28 Bee Venom; tm6 23:28 Lisinopril; tm6 23:28 amlodipine; tm6 - PMHx: 23:28 chronic kidney disease; Chronic Pancreatitis; Herniated disc; Hypertension; tm6 - PSHx: 23:28 left arm surgery; tm6 - Immunization history:: Client reports receiving the 2nd dose of the Covid vaccine. - Infectious Disease History:: Denies. - Social history:: Smoking status: Patient denies any tobacco usage or history of. Patient/guardian denies using alcohol, street drugs. ROS: 22:50 Constitutional: Positive for body aches, generalized muscle cramps, Negative for cp chills, fever, poor PO intake, 22:50 Eyes: Negative for injury, pain, redness, and discharge, cp 22:50 Cardiovascular: Positive for chest pain, of the left side of chest, Negative for edema, palpitations, 22:50 Respiratory: Negative for cough, shortness of breath, wheezing, 22:50 Abdomen/GI: Positive for nausea, vomiting, Negative for diarrhea, constipation, 22:50 Neuro: Negative for altered mental status, cp 22:50 All other systems are negative, Exam: 22:55 Constitutional: The patient appears in no acute distress, alert, awake, cp non-diaphoretic, non-toxic, well developed, well nourished, uncomfortable, 22:55 Head/Face: Normocephalic, atraumatic. cp 22:55 Eyes: Periorbital structures: appear normal, Conjunctiva: normal, no exudate, no injection, Sclera: no appreciated abnormality, Lids and lashes: appear normal, bilaterally, 22:55 ENT: External ear(s): are unremarkable, Nose: is normal, Mouth: Lips: moist, Oral mucosa: pink and intact, moist, Posterior pharynx: Airway: no evidence of obstruction, patent, 22:55 Neck: ROM/movement: is normal, is supple, without pain, no range of motions limitations, 22:55 Chest/axilla: Inspection: normal, Palpation: crepitus, is not appreciated, tenderness, that is moderate, of the anterior aspect of left upper chest and left breast, 22:55 Cardiovascular: Rate: normal, Rhythm: regular, Edema: is not appreciated, JVD: is not appreciated, 22:55 Respiratory: the patient does not display signs of respiratory distress, Respirations: normal, no use of accessory muscles, no retractions, labored breathing, is not present, Breath sounds: are clear throughout, no decreased breath sounds, no stridor, no wheezing, 22:55 Abdomen/GI: Inspection: abdomen appears normal, Bowel sounds: active, all quadrants, Palpation: soft, in all quadrants, moderate abdominal tenderness, in all quadrants, 22:55 Back: pain, that is moderate, ROM is painful, with all movement, 22:55 Neuro: Orientation: to person, place \T\ time. Mentation: is normal, Motor: moves all fours, Sensation: no obvious gross deficits, 23:50 ECG was reviewed by the Attending Physician. cp Vital Signs: 23:28 BP 157 / 82; Pulse 95; Resp 19; Temp 98.5(O); Pulse Ox 99% on R/A; Weight 121.11 kg; tm6 Height 6 ft. 5 in. ; Pain 4/10; 23:58 BP 143 / 76; Pulse 94; Pulse Ox 97% on R/A; Pain 0/10; tm6 08/09 01:34 BP 138 / 90; Pulse 78; Pulse Ox 97% on R/A; Pain 0/10; tm6 02:18 BP 139 / 80; Pulse 77; Resp 19; Temp 98.4(O); Pulse Ox 99% on R/A; Pain 0/10; tm6 04/21 23:28 Body Mass Index 31.66 (121.11 kg, 195.58 cm) tm6 04/21 23:28 Pain Scale: Adult tm6 23:58 Pain Scale: Adult tm6 04/22 01:34 Pain Scale: Adult tm6 02:18 Pain Scale: Adult tm6 MDM: 04/21 22:33 Patient medically screened. 04/22 00:00 Differential diagnosis: abnormal EKG, acute myocardial infarction, pericarditis, cp pleurisy, acute kidney failure, rhabdomyolysis, dehydration, electrolyte abnormality. 01:50 Data reviewed: vital signs, nurses notes, lab test result(s), EKG, radiologic studies, cp plain films, and as a result, I will discharge patient. 01:50 Consideration of Admission/Observation Escalation of care including cp admission/observation considered. I considered the following discharge prescriptions or medication management in the emergency department Medications were administered in the Emergency Department. See MAR. Independent interpretation of the following test(s) in the Emergency Department EKG: See my EKG interpretation above. Care significantly affected by the following chronic conditions: Hypertension, Chronic Kidney Disease. Counseling: I had a detailed discussion with the patient and/or guardian regarding the historical points, exam findings, and any diagnostic results supporting the discharge/admit diagnosis, lab results, radiology results, to return to the emergency department if symptoms worsen or persist or if there are any questions or concerns that arise at home. Response to treatment: the patient's symptoms have markedly improved after treatment, and as a result, I will discharge patient. 04/21 22:42 Order name: Basic Metabolic Panel; Complete Time: 00:36 cp 04/22 00:37 Interpretation: Normal except: NA 134; GLUC 148; BUN 32; CRE 1.83; GFR 44. 04/21 22:42 Order name: CBC with Diff; Complete Time: 00:36 cp 04/22 00:37 Interpretation: Normal except: WBC 11.20. 04/21 22:42 Order name: LFT's; Complete Time: 00:36 cp 04/22 00:37 Interpretation: Normal except: TP 8.3; GLOB 4.4; A/G 0.9. 04/21 22:42 Order name: Magnesium; Complete Time: 00:36 cp 04/21 22:42 Order name: Troponin HS; Complete Time: 00:36 cp / 00:39 Interpretation: Reviewed. cp 04/21 22:42 Order name: Urinalysis w/ reflexes; Complete Time: 00:50 cp / 00:50 Interpretation: Normal except: UCLA Turbid; UPROT TRACE; HYAL >20. cp / 22:42 Order name: CK; Complete Time: 00:36 cp / 00:39 Interpretation: Abnormal: CPK 583. cp 04/22 00:52 Order name: Troponin HS; Complete Time: 01:50 cp / 01:50 Interpretation: Reviewed. cp 04/21 22:42 Order name: XRAY Chest (1 view) cp 04/21 22:42 Order name: EKG; Complete Time: 22:43 cp 04/21 22:42 Order name: Cardiac monitoring; Complete Time: 23:32 cp / 22:42 Order name: EKG - Nurse/Tech; Complete Time: 23:41 cp 04/21 22:42 Order name: IV Saline Lock; Complete Time: 23:41 cp 04/21 22:42 Order name: Labs collected and sent; Complete Time: 23:41 cp / 22:42 Order name: O2 Per Protocol; Complete Time: 23:41 cp / 22:42 Order name: O2 Sat Monitoring; Complete Time: 23:41 cp / 00:51 Order name: PO challenge; Complete Time: 01:14 cp EC/08 23:50 Rate is 81 beats/min. Rhythm is regular. NV interval is normal. QRS interval is normal. cp QT interval is normal. T waves are Inverted in lead aVR. Interpreted by me. Reviewed by me. Administered Medications: 23:35 CANCELLED (Physician Discretion): diazepam5 mg IVP once cp 23:35 CANCELLED (Physician Discretion): ativan1 mg IVP once cp 23:41 Drug: NS 0.9% IV 1000 ml IV at 1 bolus Per protocol; 1000 mL bolus Route: IV; Rate: 1 tm6 bolus; Site: right wrist; 04/22 00:16 Follow up: Response: No adverse reaction; IV Status: Completed infusion; IV Intake: tm6 1000ml 04/21 23:56 Drug: Methocarbamol IVPB 1 grams IVPB once over 1 hrs; (mix in NS 100 mL) Route: IVPB; tm6 Infused Over: 1 hrs; Site: right wrist; 04/22 00:25 Follow up: Response: No adverse reaction; IV Status: Completed infusion; IV Intake: tm6 100ml 01:15 Drug: NS 0.9% IV 1000 ml IV at 1 bolus Per protocol; 1000 mL bolus Route: IV; Rate: 1 tm6 bolus; Site: right wrist; 02:17 Follow up: Response: No adverse reaction; IV Status: Completed infusion; IV Intake: tm6 1000ml 01:23 Not Given (Patient Refused): ondansetron 4 mg IVP once; over 2 minutes tm6 Disposition Summary: 04/22/24 01:50 Discharge Ordered Notes: Location: Home cp Problem: new cp Symptoms: have improved cp Condition: Stable cp Diagnosis - Dehydration cp - Unspecified injury of unspecified kidney, initial encounter cp - Heat cramp cp Followup: cp - With: Private Physician - When: 2 - 3 days - Reason: Worsening of condition Discharge Instructions: - Discharge Summary Sheet cp - Dehydration, Adult cp - Acute Kidney Injury, Adult cp - Heat Exhaustion cp - Rehydration, Adult cp - Preventing Heat Exhaustion, Adult cp Forms: - Medication Reconciliation Form cp - Antibiotic Education cp - Prescription Opioid Use cp - Patient Portal Instructions cp - Leadership Thank You Letter cp Prescriptions: - Zofran 4 mg Oral Tablet - take 1 tablet ORAL route every 12 hours As needed; 20 tablet; Refills: 0, cp Product Selection Permitted Signatures: Dispatcher [employer] EDMS Jimbo Galvan PA PA cp Adrienne Ryan RN RN tm6 Corrections: (The following items were deleted from the chart) 04/21 22:43 22:42 BASIC METABOLIC PANEL+C.LAB.BRZ ordered. EDMS EDMS 22:43 22:42 CBC+H.LAB.BRZ ordered. EDMS EDMS 22:43 22:42 HEPATIC FUNCTION+C.LAB.BRZ ordered. EDMS EDMS 22:43 22:42 MAGNESIUM+C.LAB.BRZ ordered. EDMS EDMS 22:43 22:42 Troponin High Sensitivity+C.LAB.BRZ ordered. EDMS EDMS 22:43 22:42 Urinalysis+U.LAB.BRZ ordered. EDMS EDMS 22:43 22:42 CREATINE PHOSPHOKINASE+C.LAB.BRZ ordered. EDMS EDMS 23:35 22:42 Diazepam IVP 5 mg IVP once ordered. cp cp :35 23:35 Ativan IVP 1 mg IVP once ordered. cp cp 04/23 01:30 04/21 22:50 Constitutional: Negative for body aches, chills, fever, poor PO intake, cp cp
[2024-04-22 02:30] VITALS: BP 139/80; TEMP 98.4; O2SAT 99
--- NOTE | 2024-04-22 14:06 | EKG ---
Test Date: 2024-04-21 Test Time: 23:43:48 Medical Recruiter: ADRIAN MEASUREMENT RESULTS: Intervals: Rate: 81 MN: 168 QRSD: 66 QT: 370 QTc: 429 [place]: P: 60 MN: 168 QRS: 33 T: 10 INTERPRETIVE STATEMENTS: Normal sinus rhythm Normal ECG Compared to ECG 04/08/2024 19:25:40 No significant changes Electronically Signed On 04-22-24 14:05:17 CDT by Nitish Diego
--- NOTE | 2024-04-23 19:04 | RAD REPORT ---
EXAM DESCRIPTION: RAD - Chest Single View - 04/21/2024 10:53 pm CLINICAL HISTORY: Chest pain. Patient extremely sensitive to the touch. TECHNIQUE: Frontal view of the chest. COMPARISON: No relevant prior studies available. FINDINGS: Lungs: Unremarkable. No consolidation. Pleural space: Unremarkable. No pneumothorax. Heart: Unremarkable. No cardiomegaly. Mediastinum: Unremarkable. Normal mediastinal contour. Bones/joints: Unremarkable. No acute fracture. IMPRESSION: No acute disease. Electronically signed by: Monroe Barrett MD 04/21/2024 11:29 PM CDT Due to temporary technical issues with the PACS/Fluency reporting system, reports are being signed by the in house radiologists without review as a courtesy to insure prompt reporting. The interpreting radiologist is fully responsible for the content of the report.
== END 2024-04-22 02:21 | disposition home or self-care (01) ==
LOC: ER 22:25
DX: T67.2XXA Heat cramp, initial encounter (principal); E86.0 Dehydration; S37.009A Unspecified injury of unspecified kidney, initial encounter; R11.2 Nausea with vomiting, unspecified; R07.9 Chest pain, unspecified; I10 Essential (primary) hypertension
CPT/HCPCS: 96365; 96361; 93005; 85025; 81001; 80048; 36415; 83735; 82550; 80076; 84484 ×2; 71045; 99285; J2405; J2800; J7030 ×2

== ENCOUNTER 2024-05-13 21:05 | Emergency (ER) | payer OTHER ==
--- OUTSIDE RECORDS SUMMARY | 2024-05-13 21:18 | XMS REPORT | Continuity of Care Document ---
Author Name Unknown Address [address] [facility] [address] [place] [address] [facility] thconnect Address [address] [facility] 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 Name Role Phone Emily Gaines Primary Care Physician Mayuri James Attending Clinician Unavailabl HAYDEN Montemayor Attending Clinician Unavailable ADRI TAYLOR Attending Clinician Unavailable FOUZIA GUNDERSON Attending Clinician Unavailable GIBRAN MCADAMS Attending Clinician Unavailable BROOK ALLEN Attending Clinician Unav ailable LEANDRO MANN Attending Clinician Unava ilable LAB90 Attending Clinician Unavailable Trevor TAYLOR Attending Clinician Unavailable Trevor TAYLOR Attending Clinician Unavailable GERALD VIDAL Attending Clinician Unavailable LAB47 Attending Clinician Unavailable Karl Ferguson MD Attending Clinician + [phone] OUTSIDE, REPORTED Attending Clinician UnavailElida Patrick MD Attending Clinician [phone] LETI RIVAS Attending Clinician Unavailable LETI RIVAS Attending Clinician Unavailable ABRAHAM ORANTES Attending Clinician Unavailable Abraham Orantes MD Attending Clinician [phone] Chavez Turner DO Attending Clinician [phone] CALLIE MUNOZ Attending Clinician Unavailable CALLIE MUNOZ Attending Clinician Unavailable MERLYN HIDALGO Attending Clinician Unavailable Doctor Unassigned, [place] Attending Clinician U navailable ADAN CHESTER Attending Clinician Unav ailable KIARA RICHARDSON Attending Clinician Unava ilable JOHNATHAN AVILA Attending Clinician Unavail able Johnathan Avila MD Attending Clinician Jessie Paul Attending Clinician Unavaila JIMMY Mayfield Attending Clinician Unavailabl STEPHIE Cortes Attending Clinician Unavailab MIRIAM Cervantes Attending Clinician Unavailable MIRIAM LUDWIG Attending Clinician Unavailable Haresh Santamaria MD Attending Clinician + Jessie Gleason Attending Clinician Unavailab Dieudonne Winters Attending Clinician Unavailab le LAB56 Attending Clinician Unavailable MANFRED L[address] Attending Clinician Unavaila AYDIN Miller Attending Clinician Unavailable Aydin Matos MD Attending Clinician [phone] NATALI ALEXANDER Attending Clinician Unavailab Natali Glass DO Attending Clinician + [phone] ADELAIDE GOODWIN Attending Clinician Unavailable Christa ALLEN Adelaide Attending Clinician [phone] HEMALATHA MORA Attending Clinician Unavailable Morgan PHOTOGRAPHIC EQUIPMENT TECHNICIAN, Hemalatha Attending Clinician +[phone] JESSICA GONZALES S Attending Clinician Unavailable Christian PAC, Jessica S Attending Clinician [phone] SOHAM CLARKE Attending Clinician Unavaillupillo Clarke MD, Soham Sethi Attending Clinician + [phone] Azam PHOTOGRAPHIC EQUIPMENT TECHNICIAN, Lion Attending Clinician +[phone] MARK HERNANDEZ Attending Clinician Unavailable Venessa ALLEN, Mark Kilpatrick Attending Clinician [phone] Carly RNEllen Attending Clinician + [phone] EMELIA GALLEGO Attending Clinician Unavailable Coco PHOTOGRAPHIC EQUIPMENT TECHNICIAN, Mdaison F Attending Clinician [phone] Emelia Gallego DO Attending Clinician [phone] Dyana WALDROP, Felipe Street Attending Clinician +[phone] FELIPE ORTEGA Attending Clinician Unavailable Elliot TIME RECORDER, Gabriella Richard Attending Clinician + [phone] Nurse, Adc Pob Immunization Attending Clinician Unavailable David Clarke DO Attending Clinician [phone] Harvinder FRENCHP, Nikhil Attending Clinician [phone] NIKHIL BLANTON Attending Clinician Unavailable Isabela BARRIGA, Mirna Topete Attending Clinician Unavailab le Pcp, Patient Does Not Have A Attending Clinician Darnell Bustillo Attending Clinician + [phone] Jessy Siddiqui DO Attending Clinician [phone] Trevor TAYLOR Admitting Clinician Unavailable ABRAHAM ORNATES Admitting Clinician Unavailable JOHNATHAN AVILA Admitting Clinician Unavail able UNDEFINED Admitting Clinician Unavailable STEPHIE HEWITT Admitting Clinician Unavailab HARESH Sharma Admitting Clinician Unav Dieudonne Cosby Admitting Clinician Unavailab le MANFRED LANE Admitting Clinician Unavaila NATALI Roe Admitting Clinician Unavailab le CHRISTA ADELAIDE Admitting Clinician Unavailable HEMALATHA MORA Admitting Clinician Unavailable SOHAM CLARKE Admitting Clinician UnavailLION Minaya Admitting Clinician Unavailable MARK HERNANDEZ Admitting Clinician Unavailable Mark Hernandez MD Admitting Clinician [phone] Trevor TAYLOR Admitting Clinician Unavailable EMELIA GALLEGO Admitting Clinician Unavailable Emelia Gallego DO Admitting Clinician [phone] DARNELL HSU Admitting Clinician Unavailable Payers Payer Name Policy Type Policy Number Effective Date Expirati on Date Source AET[employer] K[place]IE [employer] SILVER 5 O [place] 94 ON 9 [id number] 2023 00:00:00 NAVNEET Reynoso/ LUZ MARIA NG [id number] 2023 00:00:00 [facility] INS PROGRAM 2 [id number] 2023 00:00:00 CIG[employer] GENERIC [id number] 2021 00:00:00 [facility] 6 [id number] [facility] Problems Condition Name Condition Details Condition Category Status Onset Date Resolution Date Last Treatment Date Treating Clinician Comments Source Well adult exam Well adult exam Disease Active 12-16 00:00: 00 Luz Maria Ng - [place] rona Class 1 obesity due to excess calories with serious comorbidit y and body mass index (BMI) of 32.0 to 32.9 in adult Class 1 obesity due to excess calories with serious comorbidit y and body mass index (BMI) of 32.0 to 32.9 in adult Disease Active 12-16 00:00: 00 Luz Maria Ng - Externa rona Chronic pancreatit is (multi HCC) Chronic pancreatit is (multi HCC) Disease Active 10-06 00:00: 00 Luz Maria Ng - Externa l Chronic hepatitis C (multi [...] Active 10-06 00:00: 00 Luz Maria rea Chronic back pain Chronic back pain Disease Active 10-06 00:00: 00 Luz Maria Callahana rona Spondylosi s of lumbar spine Spondylosi s of lumbar spine Disease Active 10-06 00:00: 00 Luz Maria rea Epigastric pain Epigastric pain Disease Active 10-11 00:00: 00 [facility] SBO (small bowel obstructio n) SBO (small bowel obstructio n) Disease Active 10-30 00:00: 00 [facility] Obesity (BMI 30-39.9) Obesity (BMI 30-39.9) Disease Active 10-30 00:00: 00 [facility] No known active problems No known active problems Disease [facility] [id number] Bladder mass Problem [facility] [id number] Microscopi c hematuria Problem [facility] [id number] Suprapubic pain Problem [facility] [id number] Lower urinary tract symptoms Problem [facility] Allergies, Adverse Reactions, Alerts Allergy Name Allergy Type Status Severity Reaction(s) Onset Date Inactive Date Treating Clinician Comments Source bee venom protein (honey bee) DA Active SV THROAT SWELL 2022-09 1- 00:00: 00 [facility] Bee Venom Propensi ty to adverse reaction s Active Swelling 10-30 00:00: 00 Luz Maria rea BEE VENOM PROTEIN (HONEY BEE) DRUG INGREDI Active Swelling 10-30 00:00: 00 [facility] No Known Allergie s DA Active U 8-06 00:00: 00 [facility] NO KNOWN ALLERGIE S Drug Class Active [facility] Social History Social Habit Start Date Stop Date Quantity Comments Source Gender identity Kelsi hampton Seybold - External Sexual orientation Trevor rdz Hernandez - External History of tobacco use Cigarette Smoker Luz Maira trivedi - External Alcoholic beverage intake 2024-04-08 [...] (event) 2022-11-28 00:00:00 2022-12-08 23:50:00 Not sure [facility] Sex assigned at 1970 00:00:00 1970 00:00:00 Luz Maria Ng - External Smoking Status Start Date Stop Date Source Ex-smoker 2024-03-30 00:00:00 2024-03-30 00:00:00 Luz Maria Ng - External Occasional tobacco smoker 2023-05-20 00:00:00 Luz Maria Espinosa External Never smoked tobacco [facility] Unknown if ever smoked [facility] Medications Ordered Medication Name Filled Medication Name Start Date Stop Date Current Medication? Ordering Clinician Indication Dosage Frequency Signature (SIG) Comments Components Source diphenhydrA MINE:lidoca ine 2% viscous:maa lox 1:1:1 ([facility]) oral suspension 15 mL 04-02 16:30: 00 04-02 15:34 :00 No 15mL 15 mL, Oral (Swish & Swallow), ONCE, 1 dose, On 04/02/24 at 1130, Routine [facility] famotidine (PEPCID (PF)) injection 20 mg 04-02 15:30: 00 04-02 15:34 :00 No 20mg 20 mg, Slow IV Push, ONCE, 1 dose, On 04/02/24 at 1030, VASILIY [facility] NaCl 0.9% (NS) bolus infusion 2,000 mL 04-02 15:15: 00 04-02 17:55 :00 No 2000mL at 999 mL/hr, 2,000 mL, IV Infusion, ONCE, 1 dose, On 04/02/24 at 1015, STAT [facility] ondansetron (ZOFRAN (PF)) injection 4 mg 04-02 15:15: 00 04-02 14:27 :00 No 4mg 4 mg, Slow IV Push, ONCE, 1 dose, On 04/02/24 at 1015, VASILIY [facility] iopamidol (ISOVUE 370-500 mL) injection 90 mL 04-02 14:45: 00 04-02 15:00 :00 No [id number] 90mL 90 mL, Intravenou s, ONCE, 1 dose, On 04/02/24 at 1000, Routine [facility] morpHINE (4 mg/mL) injection 4 mg 04-02 14:15: 00 04-02 14:27 :00 No 4mg 4 mg, Slow IV Push, ONCE, 1 dose, On 04/02/24 at 0915, STAT [facility] Sucralfate 1 g oral Tablet 04-02 00:00: 00 Yes 1g Take 1 tablet (1 g total) by mouth before meals and at bedtime. [facility] Maria rea Sod Picosulfate -Mag Ox-Cit Acd (Clenpiq) 10-3.5-12 MG-GM -GM/175ML oral Solution 03-30 00:00: 00 Yes [id number] Instructio ns provided to patient. Follow instructio ns provided by provider.. [facility] Omeprazole 40 MG oral Delayed Release Capsule 03-30 00:00: 00 Yes [id number] 40mg QD Take 1 capsule (40 mg total) by mouth daily. [facility] NaCl 0.9% (NS) bolus infusion 1,000 mL 02-20 03:45: 00 02-20 04:50 :00 No 1000mL at 999 mL/hr, 1,000 mL, IV Infusion, ONCE, 1 dose, On 02/20/24 at 2245, [facility] FENTanyl PF (SUBLIMAZE (PF)) injection 50 mcg 02-20 03:00: 00 02-20 03:07 :00 No 50ug 50 mcg, Slow IV Push, ONCE, 1 dose, On 02/20/24 at 2200, Routine [facility] metoclopram jerilyn HCl (REGLAN) injection 10 mg 02-20 03:00: 00 02-20 03:07 :00 No 10mg 10 mg, Slow IV Push, ONCE, 1 dose, On 02/20/24 at 2200, [facility] bisacodyL (DULCOLAX) tablet 5 mg 02-20 03:00: 00 02-20 03:07 :00 No 5mg 5 mg, Oral, ONCE NOW, 1 dose, On 02/20/24 at 2200, Routine [facility] Bisacodyl (DULCOLAX) 5 MG oral Tablet Delayed Response 02-19 00:00: 00 Yes 5mg QD Take 1 tablet (5 mg total) by mouth daily as needed. [facility] dicyclomine 20 mg tablet 02-19 00:00: 00 Yes [id number] 20mg Take 1 tablet by mouth 4 (four) times daily as needed for Abdominal pain. [facility] Ketorolac Tromethamin e 10 MG oral Tablet 12-16 15:16: 47 12-16 00:00 :00 No 10mg Q.25D Take 1 tablet (10 mg total) by mouth every 6 hours as needed for pain FOR PAIN. [facility] Cyclobenzap rine HCl 10 MG oral Tablet 12-16 00:00: 00 Yes [id number] 10mg QD Take 1 tablet (10 mg [...] 12-09 03:30: 00 12-09 03:30 :00 No [id number] 100mL 100 mL, Intravenou s, ONCE, 1 [...] 10 mg tablet 12-08 00:00: 00 Yes [id number] 10mg Take 1 tablet by mouth every 6 (six) hours as needed for Pain (scale 7-10). [facility] methocarbam oL 750 mg tablet 12-08 00:00: 00 Yes [id number] 750mg Take 1 tablet by mouth every [...] MG oral Capsule 10-06 00:00: 00 Yes [id number] 300mg Q.5D Take 1 capsule (300 mg total) by mouth 2 times daily as needed. [facility] Pancrelipas e, Lip-Prot-Am yl, (Creon) 75[address]-[address] units [address] Particles 10-06 00:00: 00 Yes [id number] 1{capsu le} Take 1 capsule by mouth 3 times daily (with meals). [facility] Amlodipine Besylate 10 MG oral Tablet 10-06 00:00: 00 Yes [id number] 10mg QD Take 1 tablet (10 mg total) by mouth daily. [facility] Lisinopril 10 MG oral Tablet 10-06 00:00: 00 Yes [id number] 10mg QD Take 1 tablet (10 mg total) by mouth daily. [facility] Famotidine (PEPCID) 20 MG oral tablet 10-06 00:00: 00 Yes [id number] 20mg Q.5D Take 1 tablet (20 mg total) by mouth 2 times daily. [facility] Pantoprazol e Sodium 20 MG oral Tablet Delayed Response 10-06 00:00: 00 03-30 00:00 :00 No [id number] 20mg Take 1 tablet (20 mg total) by mouth every morning. [facility] HYDROcodone -acetaminop hen (NORCO) 10-325 mg tablet 1 tablet 2022-09 06:45: 00 08-04 05:38 :00 No 1{tbl} 1 tablet, Oral, ONCE NOW, 1 dose, On Thu08/04/23 at 0045, VASILIY [facility] methocarbam oL (ROBAXIN) tablet 1,000 mg 2022-09 05:45: 00 08-04 05:38 :00 No 1000mg 1,000 mg, Oral, ONCE, 1 dose, On Thu08/03/23 at 2345, VASILIY [facility] FENTanyl PF (SUBLIMAZE (PF)) injection 75 mcg 2022-09 05:00: 00 08-04 04:14 :00 No 75ug 75 mcg, Slow IV Push, ONCE, 1 dose, On Thu08/03/23 at 2300, Routine [facility] NaCl 0.9% (NS) IV infusion 1,000 mL 2022-09 04:45: 00 08-04 05:39 :00 No 1000mL at 999 mL/hr, Intravenou s, ONCE, 1 dose, On Thu08/03/23 at 2245, Routine [facility] methocarbam oL 500 mg tablet 2022-09 00:00: 00 Yes [id number] 500mg Take 1 tablet by mouth every [...] Slow IV Push, ONCE, 1 dose, On Thu07/25/23 at 1330, STAT [facility] metoclopram [...] 10 mg tablet 2022-09 00:00: 00 Yes [id number] 10mg Take 1 tablet by mouth every 6 (six) hours. [facility] sodium chloride (NS) injection 5 mL 2022-09 19:45: 30 Yes 5mL 5 mL, Intravenou s, PRN, Starting on Thu07/24/23 at 1345, Until Discontinu ed, Routine, IV line flushing [facility] dicyclomine 20 mg tablet 2022-09 00:00: 00 02-19 00:00 :00 No [id number] 20mg Take 1 tablet by mouth 4 (four) times daily as needed for Abdominal pain. [facility] ketorolac (TORADOL) injection 15 mg 2022-09 0-29 03:15: 00 07-12 02:32 :00 No 15mg 15 mg, Slow IV Push, ONCE, 1 dose, On 07/11/23 at 2215, Routine [facility] famotidine (PEPCID (PF)) injection 20 mg 2022-09 02:30: 00 07-12 02:32 :00 No 20mg 20 mg, Slow IV Push, ONCE, 1 dose, On 07/11/23 at 2130, VASILIY [facility] methocarbam oL (ROBAXIN) tablet 1,000 mg 2022-09 02:30: 00 07-12 02:32 :00 No 1000mg 1,000 mg, Oral, ONCE, 1 dose, On 07/11/23 at 2130, VASILIY [facility] aspirin chewable tablet 324 mg 2022-09 02:15: 00 07-12 02:31 :00 No 324mg 324 mg, Oral, ONCE, 1 dose, On 07/11/23 at 2115, STAT [facility] HYDROcodone -acetaminop hen 5-325 mg tablet 2022-09 00:00: 00 07-15 04:59 :00 No [id number] 1{tbl} Take 1 tablet by mouth every 4 (four) hours as needed for Pain (scale 7-10) for up to 3 days. Indication s: acute pain [facility] omeprazole 40 mg capsule 2022-09 00:00: 00 Yes [id number] 40mg Take 1 capsule by mouth in the morning and 1 capsule in the evening. [facility] peg-electro lyte soln 236-22.74-6 .74 -5.86 gram solution 2022-09 00:00: 00 Yes [id number] Take as directed before colonoscop y [facility] [...] morpHINE (4 mg/mL) injection 4 mg 2022-09 020 13:45: 00 07-03 12:49 :00 No 4mg 4 mg, Slow IV Push, ONCE, 1 dose, On Thu07/03/23 at 0845, VASILIY [facility] famotidine (PEPCID (PF)) injection 20 mg 2022-09 13:00: 00 07-03 12:49 :00 No 20mg 20 mg, Slow IV Push, ONCE, 1 dose, On Thu07/03/23 at 0800[facility] iohexol (OMNIPAQUE 350 BULK-100 mL) injection 80 mL 2022-09 10:40: 00 07-03 10:40 :00 No [id number] 80mL 80 mL, Intravenou s, ONCE, 1 dose, On Thu07/03/23 at 0545, Routine [facility] ondansetron (ZOFRAN (PF)) injection 4 mg 2022-09 10:15: 00 07-03 10:20 :00 No 4mg 4 mg, Slow IV Push, ONCE, 1 dose, On Thu07/03/23 at 0515, [facility] morpHINE (4 mg/mL) injection 4 mg [...] 2022-09 00:00: 00 07-10 00:00 :00 No [id number] 20mg Take 1 tablet by mouth in [...] 05-08 03:15: 00 05-08 02:12 :00 No [id number] 80mL 80 mL, Intravenou s, ONCE, 1 dose, On Carrie 05/07/23 at 2215, Routine [facility] morpHINE (4 mg/mL) injection 4 mg 05-08 01:00: 05-08 01:38 :00 No 4mg 4 mg, Slow IV Push, ONCE, 1 dose, On Carrie 05/07/23 at 1999, [facility] NaCl 0.9% (NS) bolus infusion 1,000 mL 05-08 01:00: 00 05-08 04:22 :00 No 1000mL at 999 mL/hr, 1,000 mL, IV Infusion, ONCE, 1 dose, On Carrie 05/07/23 at 2000, [facility] NaCl 0.9% (NS) bolus infusion 1,000 mL 05-02 05:15: 00 05-02 05:29 :00 No 1000mL at 999 mL/hr, 1,000 mL, IV Infusion, ONCE, 1 dose, On Thu05/02/23 at 0015, STAT [facility] famotidine (PEPCID (PF)) injection 20 mg 05-02 04:15: 00 05-02 04:21 :00 No 20mg 20 mg, Slow IV Push, ONCE, 1 dose, On Thu05/01/23 at 2315, [facility] maalox:diph enhydrAMINE :lidocaine 2 % viscous 1:1:1 ([facility]) oral suspension 15 mL 05-02 04:15: 00 05-02 04:21 :00 No 15mL 15 mL, Oral, ONCE, 1 dose, On Thu05/01/23 at 2315, [facility] ondansetron (ZOFRAN (PF)) injection 4 mg 05-02 04:15: 00 05-02 03:18 :00 No 4mg 4 mg, Slow IV Push, ONCE, 1 dose, On Thu05/01/23 at 2315, [facility] NaCl 0.9% (NS) bolus infusion 1,000 mL 05-02 04:15: 00 05-02 04:15 :00 No 1000mL at 999 mL/hr, 1,000 mL, IV Infusion, ONCE, 1 dose, On Thu05/01/23 at 2315, STAT [facility] metoclopram jerilyn HCl 10 mg tablet 05-01 00:00: 00 Yes [id number] 10mg Take 1 tablet by mouth every 6 (six) hours. [facility] pantoprazol e (PROTONIX) 20 mg EC tablet 05-01 00:00: 00 07-03 00:00 :00 No [id number] 20mg Take 1 tablet by mouth in the morning. [facility] iopamidol (ISOVUE 370-500 mL) injection 70 mL 04-22 16:21: 00 04-22 16:21 :00 No [id number] 70mL 70 mL, Intravenou s, ONCE, 1 [...] :lidocaine 2 % viscous 1:1:1 ([facility]) oral suspension 15 mL 04-22 13:00: 00 04-22 12:55 :00 No 15mL 15 mL, Oral, ONCE, 1 dose, On Thu04/22/23 at 0800, Routine [facility] NaCl 0.9% (NS) IV infusion 1,000 mL 04-22 12:45: 00 Yes 1000mL at 999 mL/hr, Intravenou s, CONTINUOUS , Starting on Thu04/22/23 at 0745, Until Discontinu ed, [facility] NaCl 0.9% (NS) bolus infusion 1,000 mL 04-22 10:30: 00 04-22 11:30 :00 No 1000mL at 999 mL/hr, 1,000 mL, IV Infusion, ONCE, 1 dose, On Thu04/22/23 at 0530, STAT [facility] ketorolac (TORADOL) injection 30 mg 04-22 [...] 1 dose, On Thu04/22/23 at 0430, VASILIY [facility] NaCl 0.9% (NS) [...] 1 dose, On Thu04/16/23 at 0915, Routine [facility] famotidine (PEPCID (PF)) injection 20 mg 04-16 13:30: 00 04-16 12:33 :00 No 20mg 20 mg, Slow IV Push, ONCE NOW, 1 dose, On Thu04/16/23 at 0830, VASILIY [facility] dicyclomine (BENTYL) injection 20 mg 04-16 13:30: 00 04-16 12:34 :00 No 20mg 20 mg, Intramuscu lar, ONCE NOW, 1 dose, On Thu04/16/23 at 0830, Routine [facility] enalaprilat (VASOTEC I.V.) injection 1.25 mg 04-16 13:15: 00 04-16 13:17 :00 No 1.25mg 1.25 mg, Slow IV Push, ONCE, 1 dose, On [facility] 04/16/23 at 0815, STAT [facility] lactulose (CEPHULAC) solution 45 mL 04-16 13:15: 00 04-16 13:18 :00 No 45mL 45 mL, Oral, ONCE, 1 dose, On [facility] 04/16/23 at 0815, VASILIY [facility] ketorolac (TORADOL) injection 30 mg 04-16 13:15: 04-16 12:32 :00 No 30mg 30 mg, Slow IV Push, ONCE NOW, 1 dose, On [facility] 04/16/23 at 0815, VASILIY [facility] NaCl 0.9% (NS) bolus infusion 1,000 mL 04-16 13:15: 00 04-16 13:54 :00 No 1000mL at 999 mL/hr, 1,000 mL, IV Piggyback, ONCE, 1 dose, On [facility] 04/16/23 at 0815, STAT [facility] lipase-prot ease-amylas e (CREON) 3,000-9,500 - 15,000 unit capsule 04-16 00:00: 00 Yes [id number] 3000U Take 1 capsule by mouth in the morning and 1 capsule at noon and 1 capsule in the evening. Take with meals. [facility] hyoscyamine sulfate (LEVSIN/SL) 0.125 mg sublingual tablet 04-16 00:00: [id number] 2 tablets under the tongue every 6 (six) hours as needed (Abdominal pain or cramping). [facility] bisacodyL 5 mg EC tablet 04-16 00:00: 00 Yes [id number] 5mg Take 1 tablet by mouth once daily as needed for Constipati on. [facility] Famotidine (PEPCID) 20 MG oral tablet 8-03 00:00: 00 10-06 00:00 :00 No 20mg Take 1 tablet (20 mg total) by mouth 2 times daily. [facility] Lorazepam 1 MG oral Tablet 04-05 00:00: 00 10-06 00:00 :00 No 1mg [id number] 3D Take 1 tablet (1 mg total) by mouth every 8 hours as needed. [facility] iopamidol (ISOVUE 370-500 mL) injection 100 mL 04-01 07:45: 00 04-01 06:58 :00 No [id number] 100mL 100 mL, Intravenou s, ONCE, 1 dose, On Thu04/01/23 at 0245, Routine [facility] famotidine (PEPCID (PF)) injection 20 mg 04-01 05:45: 00 04-01 06:09 :00 No 20mg 20 mg, Slow IV Push, ONCE, 1 dose, On Thu04/01/23 at 0045, [facility] FENTanyl PF (SUBLIMAZE (PF)) injection 50 mcg 04-01 05:38: 00 04-01 06:10 :00 No 50ug 50 mcg, Slow IV Push, ONCE, 1 dose, On Thu04/01/23 at 0045, [facility] NaCl 0.9% (NS) IV infusion 1,000 mL 04-01 05:05: 00 04-01 06:30 :00 No 1000mL at 999 mL/hr, Intravenou s, ONCE, 1 dose, On Thu04/01/23 at 0015, [facility] ondansetron (ZOFRAN (PF)) injection 4 mg 04-01 05:05: 00 04-01 05:08 :00 No 4mg 4 mg, Slow IV Push, ONCE, 1 dose, On Thu04/01/23 at 0015, [facility] sodium chloride (NS) injection 5 mL 04-01 05:04: 36 Yes 5mL 5 mL, Intravenou s, PRN, Starting on Thu04/01/23 at 0004, Until Discontinu ed, Routine, IV line flushing [facility] ondansetron 4 mg disintegrat ing tablet 04-01 00:00: 00 Yes [id number] 4mg Take 1 tablet by mouth every [...] ONCE, 1 dose, On Thu12/09/22 at 0215, [facility] traMADoL (ULTRAM) tablet 50 mg 12-09 07:15: 00 12-09 06:33 :00 No 50mg 50 mg, Oral, ONCE, 1 dose, On Thu12/09/22 at 0215, VASILIY [facility] iopamidol (ISOVUE 370-500 mL) injection 100 mL 12-09 06:15: 00 12-09 06:15 :00 No [id number] 100mL 100 mL, Intravenou s, ONCE, 1 dose, On Thu12/09/22 at 0115, Routine [facility] ketorolac (TORADOL) injection 30 mg 12-09 06:15: 00 12-09 05:30 :00 No 30mg 30 mg, Slow IV Push, ONCE, 1 dose, On Thu12/09/22 at 0115, [facility] morpHINE (4 mg/mL) injection 4 mg 12-09 06:15: 00 12-09 05:30 :00 No 4mg 4 mg, Slow IV Push, ONCE, 1 dose, On Thu12/09/22 at 0115, VASILIY [facility] NaCl 0.9% (NS) bolus infusion 1,000 mL 12-09 06:15: 00 12-09 06:33 :00 No 1000mL at 999 mL/hr, 1,000 mL, IV Infusion, ONCE, 1 dose, On Thu12/09/22 at 0115, VASILIY [facility] ondansetron (ZOFRAN (PF)) injection 8 mg 12-09 05:30: 00 12-09 05:30 :00 No 8mg 8 mg, Slow IV Push, ONCE, 1 dose, On Thu12/09/22 at 0030, [facility] traMADoL 50 mg tablet 12-09 00:00: 00 Yes [id number] 50mg Take 1 tablet by mouth every 6 (six) hours as needed (pain). Indication s: acute pain [facility] ondansetron 4 mg tablet 12-09 00:00: 00 Yes [id number] 1-2 tablets every 8 hours as needed for nausea [facility] predniSONE 20 mg tablet 12-09 00:00: 00 12-17 04:59 :00 No [id number] 40mg Take 2 tablets by mouth in the morning for 7 days. [facility] iopamidol (ISOVUE 370-500 mL) injection 100 mL 11-25 06:15: 00 11-25 06:15 :00 No [id number] 100mL 100 mL, Intravenou s, ONCE, 1 [...] ONCE, 1 dose, On Thu11/25/22 at 0000, VASIILY [facility] Pancrelipas e, Lip-Prot-Am yl, (Creon) 92038-[address] units oral Cap [address] Particles 10-13 00:00: 00 10-06 00:00 :00 No [facility] lipase-prot ease-amylas e (CREON) 12,000-38,0 00 -60,000 unit capsule 2 capsule 10-12 23:00: 00 Yes 2{capsu le} 2 capsule, Oral, TID MEALS, First dose on Thu10/12/22 at 1700, Until Discontinu ed, Routine [facility] lisinopriL 10 mg tablet 10-12 17:56: 15 Yes 10mg Take 10 mg by mouth in the morning. [facility] meloxicam (MOBIC) tablet 7.5 mg 10-12 17:15: 00 Yes 7.5mg 7.5 mg, Oral, DAILY, First dose on Thu10/12/22 at 1115, Until Discontinu ed, Routine [facility] omeprazole (PRILOSEC) capsule 20 mg 10-12 15:00: 00 Yes 20mg 20 mg, Oral, DAILY, First dose on Thu10/12/22 at 0900, Until Discontinu ed, Routine [facility] Pantoprazol e Sodium 40 MG oral Tablet Delayed Response 10-12 00:00: 00 10-06 00:00 :00 No Luz Maria Wallace l lipase-prot ease-amylas e 12,000-38,0 00 -60,000 unit capsule 10-12 00:00: 00 01-11 04:59 :00 No [id number] 2{capsu le} Take 2 capsules by mouth in the morning and 2 capsules at noon and 2 capsules in the evening. Take with meals. Do all this for 90 days. Do not crush or chew. [facility] meloxicam 7.5 mg tablet 10-12 00:00: 00 10-27 05:59 :00 No [id number] 7.5mg Take 1 tablet by mouth once daily as needed for Pain (scale 7-10) for up to 14 days. [facility] HYDROcodone -acetaminop hen 5-325 mg tablet 10-12 00:00: 00 10-20 05:59 :00 No [id number] 1{tbl} Take 1 tablet by mouth every 6 (six) hours as needed for Pain (scale 4-6) for up to 7 days. Indication s: acute pain [facility] amLODIPine (NORVASC) tablet 10 mg 10-11 20:00: 00 Yes 10mg 10 mg, Oral, DAILY, First dose on 10/11/22 at 1400, Until Discontinu ed, Routine [facility] lactated ringers IV infusion 1,000 mL 10-11 20:00: 00 10-12 14:03 :28 No 1000mL at 125 mL/hr, 1,000 mL, IV Infusion, CONTINUOUS , Starting on 10/11/22 at 1400, Until 10/12/22 at 0803, Routine [facility] HYDROcodone -acetaminop hen (NORCO 5) 5-325 mg tablet 1 tablet 10-11 19:35: 19 10-13 19:34 :19 No 1{tbl} 1 tablet, Oral, Q6HPRN, Starting on 10/11/22 at 1335, Until 10/13/22 at 1334, Routine, Pain (scale 4-6) [facility] acetaminoph en (TYLENOL) tablet 650 mg 10-11 19:35: 16 Yes 650mg 650 mg, Oral, Q6HPRN, Starting on 10/11/22 at 1335, Until Discontinu ed, Routine, Pain (scale 1-3) [facility] NaCl 0.9% (NS) bolus infusion 1,000 mL 10-11 16:45: 00 10-11 16:02 :00 No 1000mL at 999 mL/hr, 1,000 mL, Intravenou s, ONCE, 1 dose, On 10/11/22 at 1045, STAT [facility] ondansetron (ZOFRAN (PF)) injection 4 mg 10-11 16:15: 00 10-11 16:15 :00 No 4mg 4 mg, Slow IV Push, ONCE, 1 dose, On 10/11/22 at 1015, VASILIY [facility] morpHINE (4 mg/mL) injection 4 mg 10-11 16:15: 00 10-11 16:14 :00 No 4mg 4 mg, Slow IV Push, ONCE, 1 dose, On 10/11/22 at 1015, STAT [facility] iopamidol (ISOVUE 370-500 mL) injection 120 mL 10-11 15:45: 00 10-11 14:43 :00 No [id number] 120mL 120 mL, Intravenou s, ONCE, 1 dose, On 10/11/22 at 0945, Routine [facility] FENTanyl PF (SUBLIMAZE (PF)) injection 50 mcg 10-09 08:30: 00 10-09 07:23 :00 No 50ug 50 mcg, Slow IV Push, ONCE, 1 dose, On Carrie 10/09/22 at 0230, Routine [facility] iopamidol (ISOVUE 370-500 mL) injection 100 mL 10-09 07:15: 00 10-09 07:15 :00 No [id number] 100mL 100 mL, Intravenou s, ONCE, 1 dose, On Carrie 10/09/22 at 0115, Routine [facility] ketorolac (TORADOL) injection 30 mg 10-09 06:15: 00 10-09 05:25 :00 No 30mg 30 mg, Slow IV Push, ONCE, 1 dose, On Thu10/09/22 at 0015, Routine [facility] ondansetron (ZOFRAN) 4 mg tablet 10-09 00:00: 00 Yes [id number] 4mg Take 1 tablet by mouth every [...] ONCE, 1 dose, On Thu08/20/22 at 1115, [facility] Amlodipine Besylate 10 MG oral Tablet 2021-09 00:00: 00 10-06 00:00 :00 Camille rea morpHINE (4 mg/mL) injection 4 mg 06-09 13:15: 00 06-09 12:54 :00 No 4mg 4 mg, Slow IV Push, ONCE, 1 dose, On Thu06/09/22 at 0815, [facility] ketorolac (TORADOL) injection 30 mg 06-09 13:15: 00 06-09 12:55 :00 No 30mg 30 mg, Slow IV Push, ONCE, 1 dose, On Thu06/09/22 at 0815, [facility] iopamidol (ISOVUE 370-500 mL) injection 60 mL 06-09 13:07: 00 06-09 13:08 :00 No [id number] 60mL 60 mL, Intravenou s, ONCE, 1 dose, On Thu06/09/22 at 0815, Routine [facility] ondansetron (ZOFRAN (PF)) injection 4 mg 06-09 12:30: 00 06-09 12:54 :00 No 4mg 4 mg, Slow IV Push, ONCE, 1 dose, On Thu06/09/22 at 0730, [facility] dexamethaso ne sod phos PF [...] 06-09 00:00: 00 10-11 00:00 :00 No [id number] Apply one patch to most painful area up to 12 hours a day as needed for pain. PHARMACIST : dispense one box [facility] predniSONE 20 mg tablet 06-09 00:00: 00 06-17 04:59 :00 No [id number] 40mg Take 2 tablets by mouth in the morning for 7 days. [facility] Dose Unknown 02-03 00:00: 00 No Dose Unknown 02-03 00:00: 00 No lisinopriL (PRINIVIL,Z ESTRIL) tablet 20 mg 11-01 03:00: 00 Yes 20mg 20 mg, Oral, QHS, First dose (after last modificati on) on Carrie 10/31/21 at 2100, Until Discontinu ed, Routine [facility] lisinopriL 20 mg tablet 11-01 00:00: 00 12-02 04:59 :00 No [id number] 20mg Take 1 tablet by mouth at bedtime for 30 days. [facility] lactated ringers IV infusion 1,000 mL 10-31 19:00: 00 Yes 1000mL at 75 mL/hr, 1,000 mL, IV Infusion, CONTINUOUS , Starting on Thu10/31/21 at 1300, Until Discontinu ed, Routine [facility] amLODIPine (NORVASC) tablet 10 mg 10-31 15:00: 00 Yes 10mg 10 mg, Oral, DAILY, First dose on Thu10/31/21 at 0900, Until Discontinu ed, Routine [facility] enoxaparin (LOVENOX) injection 40 mg 10-31 15:00: 00 Yes 40mg 40 mg, Subcutaneo us, DAILY, First dose on Thu10/31/21 at 0900, Until Discontinu ed, Routine [facility] lactated ringers IV infusion 1,000 mL 10-31 07:00: 00 10-31 18:45 :24 No 1000mL at 150 mL/hr, 1,000 mL, IV Infusion, CONTINUOUS , Starting on Thu10/31/21 at 0100, Until Thu10/31/21 at 1245, Routine [facility] lactated ringers IV infusion 1,000 mL 10-31 01:00: 00 10-31 06:52 :16 No 1000mL at 75 mL/hr, 1,000 mL, IV Infusion, CONTINUOUS , Starting on Thu10/30/21 at 1900, Until Thu10/31/21 at 0052, Routine [facility] morpHINE injection 4 mg 10-31 00:43: [...] Discontinu ed, Routine, Pain (scale 1-3) [facility] ondansetron (ZOFRAN (PF)) injection 4 mg 10-30 21:15: 00 10-30 20:28 :00 No 4mg 4 mg, Slow IV Push, ONCE, 1 dose, On Thu10/30/21 at 1515, VASILIY [facility] morpHINE injection 4 mg 10-30 21:15: 00 10-30 20:29 :00 No 4mg 4 mg, Slow IV Push, ONCE, 1 dose, On Thu10/30/21 at 1515, STAT [facility] NaCl 0.9% (NS) bolus infusion 1,000 mL 10-30 21:15: 00 10-30 20:29 :00 No 1000mL at 999 mL/hr, 1,000 mL, IV Infusion, ONCE, 1 dose, On Thu10/30/21 at 1515, VASILIY [facility] iopamidol (ISOVUE 370-500 mL) injection 100 mL 10-30 20:37: 00 10-30 20:35 :00 No [id number] 100mL 100 mL, Intravenou s, ONCE, 1 dose, On Thu10/30/21 at 1445, Routine [facility] lisinopril 10 mg tablet 2- 00:00: 00 No 1mg amlodipine 10 mg tablet 2- 00:00: 00 No 1mg lisinopril 10 mg tablet 2020-09 0-13 00:00: 00 No 1mg amlodipine 10 mg tablet 2020-09 0-13 00:00: 00 No 1mg NaCl 0.9% (NS) bolus infusion 1,000 mL 10 03:45: 00 05-24 05:00 :00 No 1000mL at 999 mL/hr, 1,000 mL, IV Piggyback, ONCE, 1 dose, [facility] 05/23/21 at 2245, STAT [facility] NaCl 0.9% (NS) bolus infusion 1,000 mL 05-24 03:00: 00 05-24 03:00 :00 No 1000mL at 999 mL/hr, 1,000 mL, IV Piggyback, ONCE, 1 dose, [facility] 05/23/21 at 2200, STAT [facility] NaCl 0.9% (NS) bolus infusion 500 mL 05-23 03:15: 00 05-23 15:14 :00 No 500mL at 999 mL/hr, 500 mL, IV Piggyback, ONCE, 1 dose, 05/22/21 at 2215, STAT [facility] dexamethaso ne (DECADRON PHOSPHATE) injection 10 mg 04-02 03:30: 00 04-02 02:47 :00 No 10mg 10 mg, Intramuscu lar, ONCE, 1 dose, 04/01/21 at 2230, STAT [facility] ketorolac (TORADOL) injection 60 mg 03-18 04:00: 00 03-18 02:56 :00 No 60mg 60 mg, Intramuscu lar, ONCE, 1 dose, [place] 03/17/21 at 2300, VASILIY
Fa culty member approving Restricted medication : EMERGENCY ROOM, [facility] ibuprofen 800 mg tablet 03-17 00:00: 00 05-23 00:00 :00 No [id number] 800mg Take 1 tablet by mouth every [...] Hospital benzonatate (TESSALON PERLES) capsule 200 mg -04 05:00: 00 11-15 04:51 :00 No 200mg 200 mg, Oral, ONCE, 1 dose, 11/14/20 at 2300, Routine [facility] Dose Unknown 11-14 00:00: 00 No Dose Unknown 11-14 00:00: 00 No benzonatate 100 mg capsule 11-14 00:00: 00 05-23 00:00 :00 No [id number] 100mg Take 1 capsule by mouth 3 [...] ONCE, 1 dose, 09/30/20 at 0900, VASILIY [facility] amLODIPine (NORVASC) 10 mg tablet 09-30 00:00: 00 Yes [id number] 10mg Take 1 tablet by mouth daily. [facility] lisinopriL 10 mg tablet 09-30 00:00: 00 11-01 00:00 :00 No [id number] 10mg Take 1 tablet by mouth at bedtime. [facility] Dose Unknown 2019-09 0 00:00: 00 No Dose Unknown 2019-09 00:00: 00 No maalox:diph enhydrAMINE :lidocaine 2 % viscous 1:1:1 (FIRST-MOUT HWASH BLM) oral suspension 15 mL 2019-09 03:30: 00 07-02 03:30 :00 No 15mL 15 mL, Oral, ONCE, 1 dose, 07/01/20 at 2230, VASILIY [facility] sodium chloride (NS) injection 5 mL 2019-09 03:00: 48 Yes 5mL 5 mL, Intravenou s, PRN, Starting 07/01/20 at 2200, Until Discontinu ed, Routine, IV line flushing [facility] sucralfate 1 gram tablet 2019-09 00:00: 00 07-16 05:59 :00 No [id number] 1g Take 1 tablet by mouth before meals and at bedtime for 14 days. [facility] lisinopril 10 mg tablet 04-12 00:00: 00 No 1mg amlodipine 10 mg tablet 04-12 00:00: 00 No 1mg No known medications No [facility] Immunizations Ordered Immunization Name Filled Immunization Name Date Status Comments Source SARS-COV-2 COVID-19 PFIZER VACCINE 2021-05-07 00:00:00 Completed [facility] SARS-COV-2 COVID-19 PFIZER VACCINE 2021-05-07 00:00:00 Completed [facility] SARS-COV-2 COVID-19 PFIZER VACCINE 2021-05-07 00:00:00 Completed [facility] SARS-COV-2 COVID-19 PFIZER VACCINE 2021-05-07 00:00:00 Completed [facility] SARS-COV-2 COVID-19 PFIZER VACCINE 2021-05-07 00:00:00 Completed [facility] SARS-COV-2 COVID-19 PFIZER VACCINE 2021-05-07 00:00:00 Completed [facility] SARS-COV-2 COVID-19 PFIZER VACCINE 2021-05-07 00:00:00 Completed [facility] SARS-COV-2 COVID-19 PFIZER VACCINE 2021-05-07 00:00:00 Completed [facility] SARS-COV-2 COVID-19 PFIZER VACCINE 2021-05-07 00:00:00 Completed [facility] SARS-COV-2 COVID-19 PFIZER VACCINE 2021-05-07 00:00:00 Completed [facility] SARS-COV-2 COVID-19 PFIZER VACCINE 2021-05-07 00:00:00 Completed [facility] SARS-COV-2 COVID-19 PFIZER VACCINE 2021-05-07 00:00:00 Completed [facility] SARS-COV-2 COVID-19 PFIZER VACCINE 2021-05-07 00:00:00 Completed [facility] SARS-COV-2 COVID-19 PFIZER VACCINE 2021-05-07 00:00:00 Completed [facility] SARS-COV-2 COVID-19 PFIZER VACCINE 2021-05-07 00:00:00 Completed [facility] SARS-COV-2 COVID-19 PFIZER VACCINE 2021-05-07 00:00:00 Completed [facility] SARS-COV-2 COVID-19 PFIZER VACCINE 2021-05-07 00:00:00 Completed [facility] SARS-COV-2 COVID-19 PFIZER VACCINE 2021-05-07 00:00:00 Completed [facility] SARS-COV-2 COVID-19 PFIZER VACCINE 2021-05-07 00:00:00 Completed [facility] SARS-COV-2 COVID-19 PFIZER VACCINE 2021-05-07 00:00:00 Completed [facility] SARS-COV-2 COVID-19 PFIZER VACCINE 2021-05-07 00:00:00 Completed [facility] SARS-COV-2 COVID-19 PFIZER VACCINE 2021-05-07 00:00:00 Completed [facility] SARS-COV-2 COVID-19 PFIZER VACCINE 2021-05-07 00:00:00 Completed [facility] SARS-COV-2 COVID-19 PFIZER VACCINE 2021-05-07 00:00:00 Completed [facility] SARS-COV-2 COVID-19 PFIZER VACCINE 2021-05-07 00:00:00 Completed [facility] SARS-COV-2 COVID-19 PFIZER VACCINE Unknown Completed [facility] SARS-COV-2 COVID-19 PFIZER VACCINE Unknown Completed [facility] SARS-COV-2 COVID-19 PFIZER VACCINE Unknown Completed [facility] SARS-COV-2 COVID-19 PFIZER VACCINE Unknown Completed [facility] SARS-COV-2 COVID-19 PFIZER VACCINE Unknown Completed [facility] SARS-COV-2 COVID-19 PFIZER VACCINE Unknown Completed [facility] SARS-COV-2 COVID-19 PFIZER VACCINE Unknown Completed [facility] SARS-COV-2 COVID-19 PFIZER VACCINE Unknown Completed [facility] SARS-COV-2 COVID-19 PFIZER VACCINE Unknown Completed [facility] SARS-COV-2 COVID-19 PFIZER VACCINE Unknown Completed [facility] SARS-COV-2 COVID-19 PFIZER VACCINE Unknown Completed [facility] SARS-COV-2 COVID-19 PFIZER VACCINE Unknown Completed [facility] SARS-COV-2 COVID-19 PFIZER VACCINE Unknown Completed [facility] SARS-COV-2 COVID-19 PFIZER VACCINE Unknown Completed [facility] SARS-COV-2 COVID-19 PFIZER VACCINE Unknown Completed [facility] SARS-COV-2 COVID-19 PFIZER VACCINE Unknown Completed [facility] SARS-COV-2 COVID-19 PFIZER VACCINE Unknown Completed [facility] SARS-COV-2 COVID-19 PFIZER VACCINE Unknown Completed [facility] SARS-COV-2 COVID-19 PFIZER VACCINE Unknown Completed [facility] SARS-COV-2 COVID-19 PFIZER VACCINE Unknown Completed [facility] SARS-COV-2 COVID-19 PFIZER VACCINE Unknown Completed [facility] SARS-COV-2 COVID-19 PFIZER VACCINE Unknown Completed [facility] Vital Signs Vital Name Observation Time Observation Value Comments S ource Systolic blood pressure 2024-04-08 21:13:00 143 mm[Hg] Luz Maria Saucedo ld - External Diastolic blood pressure 2024-04-08 21:13:00 87 mm[Hg] Luz Maria walden - External Heart rate 2024-04-08 21:13:00 79 /min Sallie Ng - External Body temperature 2024-04-08 21:13:00 36.78 Cindi Luz Maria Ng - External Respiratory rate 2024-04-08 21:13:00 16 /min Luz Maria Seybold - External Body height 2024-04-08 21:13:00 195.6 cm Kelsi ey Seybold - External Body weight 2024-04-08 21:13:00 118.389 kg Kelsi ey Seybold - External BMI 2024-04-08 21:13:00 30.95 kg/m2 Kelsi ey Seybold - External Oxygen saturation in Arterial blood by Pulse oximetry 2024-04-08 21:13:00 100 /min Luz Maria Ingramybo ld - External Systolic blood pressure 2024-04-02 17:52:00 140 mm[Hg] [facility] Diastolic blood pressure 2024-04-02 17:52:00 93 mm[Hg] [facility] Heart rate 2024-04-02 17:52:00 80 /min [facility] Body temperature 2024-04-02 17:52:00 37 Cindi [facility] Respiratory rate 2024-04-02 17:52:00 20 /min [facility] Oxygen saturation in Arterial blood by Pulse oximetry 2024-04-02 17:52:00 98 /min [facility] Body height 2024-04-02 13:32:00 195.6 cm [facility] Body weight 2024-04-02 13:32:00 120.3 kg [facility] BMI 2024-04-02 13:32:00 31.45 kg/m2 [facility] Systolic blood pressure 2024-03-30 13:10:00 119 mm[Hg] Luz Maria Ingramybo ld - External Diastolic blood pressure 2024-03-30 [...] oximetry 2024-03-30 13:10:00 100 /min Luz Maria Riverao ld - External Systolic blood pressure 2024-02-21 04:48:00 132 mm[Hg] [facility] Diastolic blood pressure 2024-02-21 04:48:00 82 mm[Hg] [facility] Heart rate 2024-02-21 04:48:00 74 /min [facility] Body temperature 2024-02-21 04:48:00 36.72 Cindi [facility] Respiratory rate 2024-02-21 04:48:00 15 /min [facility] Oxygen saturation in Arterial blood by Pulse oximetry 2024-02-21 04:48:00 98 /min [facility] Body height 2024-02-21 02:43:00 195.6 cm [facility] Body weight 2024-02-21 02:43:00 115.667 kg [facility] BMI 2024-02-21 02:43:00 30.24 kg/m2 [facility] Systolic blood pressure 2023-12-17 20:32:00 112 mm[Hg] Luz Maria Riverao ld - External Diastolic blood pressure 2023-12-17 20:32:00 80 mm[Hg] Luz Maria ybo ld - External Heart rate 2023-12-17 20:07:00 [...] /min Luz Maria Riverao ld - External Systolic blood pressure 2023-12-10 03:57:00 157 mm[Hg] [facility] Diastolic blood pressure 2023-12-10 03:57:00 83 mm[Hg] [facility] Heart rate 2023-12-10 03:57:00 70 /min [facility] Respiratory rate 2023-12-10 03:57:00 16 /min [facility] Oxygen saturation in Arterial blood by Pulse oximetry 2023-12-10 03:57:00 99 /min [facility] Body temperature 2023-12-10 01:12:00 36.83 Cindi [facility] Body height 2023-12-10 01:12:00 195.6 cm [facility] Body weight 2023-12-10 01:12:00 122.471 kg [facility] BMI 2023-12-10 01:12:00 32.02 kg/m2 [facility] Systolic blood pressure 2023-10-06 20:55:00 130 mm[Hg] Luz Maria Seybo ld - External Diastolic blood pressure 2023-10-06 20:55:00 80 mm[Hg] Luz Maria Seybo ld - External Heart rate 2023-10-06 20:14:00 98 /min Kelse y Seybold - External Body temperature 2023-10-06 20:14:00 36.56 Cindi Luz Maria Seybold - External Respiratory rate 2023-10-06 20:14:00 18 /min Luz Maria Seybold - External Body height 2023-10-06 20:14:00 195.6 cm Kelsi ey Seybold - External Body weight 2023-10-06 20:14:00 127.007 kg Kelsi ey Seybold - External BMI 2023-10-06 20:14:00 33.20 kg/m2 Kelsi ey Seybold - External Oxygen saturation in Arterial blood by Pulse oximetry 2023-10-06 20:14:00 94 /min Luz Maria Seybo ld - External Systolic blood pressure 2023-08-04 05:38:00 164 mm[Hg] [facility] Diastolic blood pressure 2023-08-04 05:38:00 99 mm[Hg] [facility] Heart rate 2023-08-04 05:38:00 70 /min [facility] Body temperature 2023-08-04 05:38:00 37 Cindi [facility] Respiratory rate 2023-08-04 05:38:00 18 /min [facility] Oxygen saturation in Arterial blood by Pulse oximetry 2023-08-04 05:38:00 98 /min [facility] Body height 2023-08-04 02:22:00 195.6 cm [facility] Body weight 2023-08-04 02:22:00 118.389 kg [facility] BMI 2023-08-04 02:22:00 30.95 kg/m2 [facility] Systolic blood pressure 2023-07-25 18:00:00 146 mm[Hg] [facility] Diastolic blood pressure 2023-07-25 18:00:00 90 mm[Hg] [facility] Heart rate 2023-07-25 18:00:00 75 /min [facility] Respiratory rate 2023-07-25 18:00:00 18 /min [facility] Oxygen saturation in Arterial blood by Pulse oximetry 2023-07-25 18:00:00 95 /min [facility] Body temperature 2023-07-25 15:57:00 37.61 Cindi [facility] Body height 2023-07-25 15:57:00 195.6 cm [facility] Body weight 2023-07-25 15:57:00 118.842 kg [facility] BMI 2023-07-25 15:57:00 31.07 kg/m2 [facility] Systolic blood pressure 2023-07-24 21:05:00 140 mm[Hg] [facility] Diastolic blood pressure 2023-07-24 21:05:00 94 mm[Hg] [facility] Heart rate 2023-07-24 21:05:00 71 /min [facility] Body temperature 2023-07-24 21:05:00 36.67 Cindi [facility] Respiratory rate 2023-07-24 21:05:00 18 /min [facility] Oxygen saturation in Arterial blood by Pulse oximetry 2023-07-24 21:05:00 97 /min [facility] Body weight 2023-07-24 18:35:00 115.667 kg [facility] BMI 2023-07-24 18:35:00 30.24 kg/m2 [facility] Systolic blood pressure 2023-07-12 03:30:00 156 mm[Hg] [facility] Diastolic blood pressure 2023-07-12 03:30:00 101 mm[Hg] [facility] Heart rate 2023-07-12 03:30:00 90 /min [facility] Respiratory rate 2023-07-12 03:30:00 20 /min [facility] Oxygen saturation in Arterial blood by Pulse oximetry 2023-07-12 03:30:00 94 /min [facility] Body temperature 2023-07-12 01:57:00 36.67 Cindi [facility] Body weight 2023-07-12 01:57:00 115.667 kg [facility] BMI 2023-07-12 01:57:00 30.24 kg/m2 [facility] Systolic blood pressure 2023-07-10 13:34:00 140 mm[Hg] [facility] Diastolic blood pressure 2023-07-10 13:34:00 95 mm[Hg] [facility] Heart rate 2023-07-10 13:34:00 76 /min [facility] Body temperature 2023-07-10 13:34:00 35.94 Cindi [facility] Body height 2023-07-10 13:34:00 195.6 cm [facility] Body weight 2023-07-10 13:34:00 118.298 kg [facility] BMI 2023-07-10 13:34:00 30.93 kg/m2 [facility] Oxygen saturation in Arterial blood by Pulse oximetry 2023-07-10 13:34:00 97 /min [facility] Systolic blood pressure 2023-07-08 13:43:00 140 mm[Hg] Luz Maria Ingramybo ld - External Diastolic blood pressure 2023-07-08 13:43:00 100 mm[Hg] Luz Maria ybo ld - External Heart rate 2023-07-08 13:43:00 [...] Systolic blood pressure 2023-07-03 12:45:10 149 mm[Hg] [facility] Diastolic blood pressure 2023-07-03 12:45:10 88 mm[Hg] [facility] Heart rate 2023-07-03 12:45:10 88 /min [facility] Respiratory rate 2023-07-03 12:45:10 16 /min [facility] Oxygen saturation in Arterial blood by Pulse oximetry 2023-07-03 12:45:10 97 /min [facility] Body temperature 2023-07-03 09:47:00 36.78 Cindi [facility] Body height 2023-07-03 09:47:00 195.6 cm [facility] Body weight 2023-07-03 09:47:00 113.853 kg [facility] BMI 2023-07-03 09:47:00 29.76 kg/m2 [facility] Systolic blood pressure 2023-05-20 20:08:00 132 mm[Hg] Luz Maria Ingramybo ld - External Diastolic blood pressure 2023-05-20 20:08:00 84 mm[Hg] Luz Maria Ingramybo ld - External Heart rate 2023-05-20 20:08:00 76 /min Kelse y Seybold - External Body temperature 2023-05-20 20:08:00 37 Cindi Luz Maria Ng - External Respiratory rate 2023-05-20 20:08:00 16 /min Luz Maria Ng - External Body height 2023-05-20 20:08:00 195.6 cm Kelsi Ng - External Body weight 2023-05-20 20:08:00 116.121 kg Kelsi Ng - External BMI 2023-05-20 20:08:00 30.36 kg/m2 Kelsi Ng - External Systolic blood pressure 2023-05-08 03:30:00 133 mm[Hg] [facility] Diastolic blood pressure 2023-05-08 03:30:00 87 mm[Hg] [facility] Heart rate 2023-05-08 03:30:00 70 /min [facility] Respiratory rate 2023-05-08 03:30:00 18 /min [facility] Oxygen saturation in Arterial blood by Pulse oximetry 2023-05-08 03:30:00 97 /min [facility] Body temperature 2023-05-07 22:36:00 36.72 Cindi [facility] Body weight 2023-05-07 22:36:00 113.853 kg [facility] BMI 2023-05-07 22:36:00 30.55 kg/m2 [facility] Systolic blood pressure 2023-05-02 05:00:00 134 mm[Hg] [facility] Diastolic blood pressure 2023-05-02 05:00:00 85 mm[Hg] [facility] Heart rate 2023-05-02 05:00:00 72 /min [facility] Oxygen saturation in Arterial blood by Pulse oximetry 2023-05-02 05:00:00 98 /min [facility] Body temperature 2023-05-02 02:28:00 37.28 Cindi [facility] Respiratory rate 2023-05-02 02:28:00 20 /min [facility] Body height 2023-05-02 02:28:00 193 cm [facility] Body weight 2023-05-02 02:28:00 113.399 kg [facility] BMI 2023-05-02 02:28:00 30.43 kg/m2 [facility] Systolic blood pressure 2023-04-22 18:02:36 130 mm[Hg] [facility] Diastolic blood pressure 2023-04-22 18:02:36 80 mm[Hg] [facility] Heart rate 2023-04-22 18:02:36 68 /min [facility] Body temperature 2023-04-22 18:02:36 36.78 Cindi [facility] Respiratory rate 2023-04-22 18:02:36 17 /min [facility] Oxygen saturation in Arterial blood by Pulse oximetry 2023-04-22 18:02:36 96 /min [facility] Body height 2023-04-22 08:58:00 195.6 cm [facility] Body weight 2023-04-22 08:58:00 113.944 kg [facility] BMI 2023-04-22 08:58:00 29.79 kg/m2 [facility] Systolic blood pressure 2023-04-16 13:30:00 142 mm[Hg] [facility] Diastolic blood pressure 2023-04-16 13:30:00 98 mm[Hg] [facility] Heart rate 2023-04-16 13:30:00 65 /min [facility] Respiratory rate 2023-04-16 13:30:00 17 /min [facility] Oxygen saturation in Arterial blood by Pulse oximetry 2023-04-16 13:30:00 98 /min [facility] Systolic blood pressure 2023-04-16 12:32:00 155 mm[Hg] [facility] Diastolic blood pressure 2023-04-16 12:32:00 108 mm[Hg] [facility] Heart rate 2023-04-16 12:32:00 61 /min [facility] Respiratory rate 2023-04-16 12:32:00 18 /min [facility] Oxygen saturation in Arterial blood by Pulse oximetry 2023-04-16 12:32:00 97 /min [facility] Body temperature 2023-04-16 12:09:00 36.72 Cindi [facility] Body weight 2023-04-16 12:09:00 118.842 kg [facility] BMI 2023-04-16 12:09:00 31.89 kg/m2 [facility] Systolic blood pressure 2023-04-01 08:00:00 130 mm[Hg] [facility] Diastolic blood pressure 2023-04-01 08:00:00 75 mm[Hg] [facility] Heart rate 2023-04-01 08:00:00 75 /min [facility] Respiratory rate 2023-04-01 08:00:00 19 /min [facility] Oxygen saturation in Arterial blood by Pulse oximetry 2023-04-01 08:00:00 96 /min [facility] Body temperature 2023-04-01 05:02:00 36.28 Cindi [facility] Body height 2023-04-01 05:02:00 193 cm [facility] Body weight 2023-04-01 05:02:00 111.585 kg [facility] BMI 2023-04-01 05:02:00 29.94 kg/m2 [facility] Systolic blood pressure 2023-02-13 21:00:00 157 mm[Hg] [facility] Diastolic blood pressure 2023-02-13 21:00:00 89 mm[Hg] [facility] Heart rate 2023-02-13 21:00:00 102 /min [facility] Body temperature 2023-02-13 21:00:00 37.89 Cindi [facility] Respiratory rate 2023-02-13 21:00:00 16 /min [facility] Body weight 2023-02-13 21:00:00 124.286 kg [facility] BMI 2023-02-13 21:00:00 33.35 kg/m2 [facility] Oxygen saturation in Arterial blood by Pulse oximetry 2023-02-13 21:00:00 97 /min [facility] Systolic blood pressure 2022-12-09 06:33:00 152 mm[Hg] [facility] Diastolic blood pressure 2022-12-09 06:33:00 96 mm[Hg] [facility] Heart rate 2022-12-09 06:33:00 60 /min [facility] Respiratory rate 2022-12-09 06:33:00 11 /min [facility] Oxygen saturation in Arterial blood by Pulse oximetry 2022-12-09 06:33:00 96 /min [facility] Body temperature 2022-12-09 04:51:00 37 Cindi [facility] Body height 2022-12-09 04:51:00 193 cm [facility] Body weight 2022-12-09 04:51:00 116.121 kg [facility] BMI 2022-12-09 04:51:00 31.16 kg/m2 [facility] Systolic blood pressure 2022-11-25 04:51:00 148 mm[Hg] [facility] Diastolic blood pressure 2022-11-25 04:51:00 96 mm[Hg] [facility] Heart rate 2022-11-25 04:51:00 71 /min [facility] Body temperature 2022-11-25 04:51:00 37 Cindi [facility] Respiratory rate 2022-11-25 04:51:00 16 /min [facility] Body height 2022-11-25 04:51:00 193 cm [facility] Body weight 2022-11-25 04:51:00 113.399 kg [facility] BMI 2022-11-25 04:51:00 30.43 kg/m2 [facility] Oxygen saturation in Arterial blood by Pulse oximetry 2022-11-25 04:51:00 97 /min [facility] Systolic blood pressure 2022-10-12 21:48:00 152 mm[Hg] [facility] Diastolic blood pressure 2022-10-12 21:48:00 82 mm[Hg] [facility] Heart rate 2022-10-12 21:48:00 70 /min [facility] Body temperature 2022-10-12 21:48:00 36.89 Cindi [facility] Respiratory rate 2022-10-12 21:48:00 18 /min [facility] Oxygen saturation in Arterial blood by Pulse oximetry 2022-10-12 21:48:00 94 /min [facility] Body height 2022-10-11 17:50:00 193 cm [facility] Body weight 2022-10-11 17:50:00 113.399 kg [facility] BMI 2022-10-11 17:50:00 30.43 kg/m2 [facility] Systolic blood pressure 2022-10-09 07:25:23 138 mm[Hg] [facility] Diastolic blood pressure 2022-10-09 07:25:23 86 mm[Hg] [facility] Heart rate 2022-10-09 07:25:23 73 /min [facility] Respiratory rate 2022-10-09 07:25:23 20 /min [facility] Oxygen saturation in Arterial blood by Pulse oximetry 2022-10-09 07:25:23 98 /min [facility] Body temperature 2022-10-09 04:12:00 37.28 Cindi [facility] Body height 2022-10-09 04:12:00 193 cm [facility] Body weight 2022-10-09 04:12:00 113.399 kg [facility] BMI 2022-10-09 04:12:00 30.43 kg/m2 [facility] Systolic blood pressure 2022-08-20 14:40:00 147 mm[Hg] [facility] Diastolic blood pressure 2022-08-20 14:40:00 95 mm[Hg] [facility] Heart rate 2022-08-20 14:40:00 75 /min [facility] Body temperature 2022-08-20 14:40:00 36.89 Cindi [facility] Respiratory rate 2022-08-20 14:40:00 20 /min [facility] Body height 2022-08-20 14:40:00 190.5 cm [facility] Body weight 2022-08-20 14:40:00 115.667 kg [facility] BMI 2022-08-20 14:40:00 31.87 kg/m2 [facility] Oxygen saturation in Arterial blood by Pulse oximetry 2022-08-20 14:40:00 98 /min [facility] height 2022-07-11 09:30:00 77 [in_i] Commo n [facility] weight 2022-07-11 09:30:00 253.6 [lb_av] Co mmon [facility] temperature 2022-07-11 09:30:00 98.3 [degF] Com mon [facility] bmi 2022-07-11 09:30:00 30.07 kg/m2 Comm on [facility] oximetry 2022-07-11 09:30:00 99 % Commo n [facility] respiratory rate 2022-07-11 09:30:00 18 /min [facility] blood pressure systolic 2022-07-11 09:30:00 135 mm[Hg] [facility] blood pressure diastolic 2022-07-11 09:30:00 81 mm[Hg] [facility] Systolic blood pressure 2022-06-09 15:00:00 141 mm[Hg] [facility] Diastolic blood pressure 2022-06-09 15:00:00 94 mm[Hg] [facility] Heart rate 2022-06-09 15:00:00 59 /min [facility] Respiratory rate 2022-06-09 15:00:00 16 /min [facility] Oxygen saturation in Arterial blood by Pulse oximetry 2022-06-09 15:00:00 97 /min [facility] Body temperature 2022-06-09 11:56:00 36.17 Cindi [facility] Body height 2022-06-09 11:56:00 195.6 cm [facility] Body weight 2022-06-09 11:56:00 127.007 kg [facility] BMI 2022-06-09 11:56:00 33.20 kg/m2 [facility] Systolic blood pressure 2021-11-01 17:12:00 152 mm[Hg] [facility] Diastolic blood pressure 2021-11-01 17:12:00 89 mm[Hg] [facility] Heart rate 2021-11-01 17:12:00 72 /min [facility] Body temperature 2021-11-01 17:12:00 36.17 Cindi [facility] Respiratory rate 2021-11-01 17:12:00 18 /min [facility] Oxygen saturation in Arterial blood by Pulse oximetry 2021-11-01 17:12:00 94 /min [facility] Body height 2021-10-30 23:19:00 195.6 cm [facility] Body weight 2021-10-30 23:19:00 116.983 kg [facility] BMI 2021-10-30 23:19:00 30.58 kg/m2 [facility] Systolic blood pressure 2021-05-24 06:00:00 135 mm[Hg] [facility] Diastolic blood pressure 2021-05-24 06:00:00 97 mm[Hg] [facility] Heart rate 2021-05-24 06:00:00 88 /min [facility] Respiratory rate 2021-05-24 06:00:00 21 /min [facility] Oxygen saturation in Arterial blood by Pulse oximetry 2021-05-24 06:00:00 94 /min [facility] Body temperature 2021-05-24 01:47:00 37.28 Cindi [facility] Body height 2021-05-24 01:47:00 195.6 cm [facility] Body weight 2021-05-24 01:47:00 127.461 kg [facility] BMI 2021-05-24 01:47:00 33.32 kg/m2 [facility] Systolic blood pressure 2021-05-22 23:36:00 154 mm[Hg] [facility] Diastolic blood pressure 2021-05-22 23:36:00 112 mm[Hg] [facility] Heart rate 2021-05-22 23:36:00 97 /min [facility] Body temperature 2021-05-22 23:36:00 36 Cindi [facility] Respiratory rate 2021-05-22 23:36:00 19 /min [facility] Body height 2021-05-22 23:36:00 195.6 cm [facility] Body weight 2021-05-22 23:36:00 127.007 kg [facility] BMI 2021-05-22 23:36:00 33.20 kg/m2 [facility] Oxygen saturation in Arterial blood by Pulse oximetry 2021-05-22 23:36:00 96 /min [facility] Systolic blood pressure 2021-05-02 00:01:00 157 mm[Hg] [facility] Diastolic blood pressure 2021-05-02 00:01:00 93 mm[Hg] [facility] Heart rate 2021-05-02 00:01:00 84 /min [facility] Body temperature 2021-05-02 00:01:00 36.56 Cindi [facility] Respiratory rate 2021-05-02 00:01:00 18 /min [facility] Body weight 2021-05-02 00:01:00 126.554 kg [facility] BMI 2021-05-02 00:01:00 33.08 kg/m2 [facility] Oxygen saturation in Arterial blood by Pulse oximetry 2021-05-02 00:01:00 97 /min [facility] Systolic blood pressure 2021-04-02 01:01:00 144 mm[Hg] [facility] Diastolic blood pressure 2021-04-02 01:01:00 94 mm[Hg] [facility] Heart rate 2021-04-02 01:01:00 89 /min [facility] Body temperature 2021-04-02 01:01:00 37.06 Cindi [facility] Respiratory rate 2021-04-02 01:01:00 18 /min [facility] Body weight 2021-04-02 01:01:00 129.729 kg [facility] BMI 2021-04-02 01:01:00 33.91 kg/m2 [facility] Oxygen saturation in Arterial blood by Pulse oximetry 2021-04-02 01:01:00 100 /min [facility] Systolic blood pressure 2021-04-02 01:01:00 144 mm[Hg] [facility] Diastolic blood pressure 2021-04-02 01:01:00 94 mm[Hg] [facility] Heart rate 2021-04-02 01:01:00 89 /min [facility] Body temperature 2021-04-02 01:01:00 37.06 Cindi [facility] Respiratory rate 2021-04-02 01:01:00 18 /min [facility] Body weight 2021-04-02 01:01:00 129.729 kg [facility] BMI 2021-04-02 01:01:00 33.91 kg/m2 [facility] Oxygen saturation in Arterial blood by Pulse oximetry 2021-04-02 01:01:00 100 /min [facility] Systolic blood pressure 2021-03-18 03:16:13 140 mm[Hg] [facility] Diastolic blood pressure 2021-03-18 03:16:13 80 mm[Hg] [facility] Heart rate 2021-03-18 03:16:13 80 /min [facility] Body temperature 2021-03-18 03:16:13 36.67 Cindi [facility] Respiratory rate 2021-03-18 03:16:13 19 /min [facility] Oxygen saturation in Arterial blood by Pulse oximetry 2021-03-18 03:16:13 99 /min [facility] Body weight 2021-03-18 01:02:00 129.729 kg [facility] BMI 2021-03-18 01:02:00 33.91 kg/m2 [facility] Systolic blood pressure 2021-03-18 03:16:13 140 mm[Hg] [facility] Diastolic blood pressure 2021-03-18 03:16:13 80 mm[Hg] [facility] Heart rate 2021-03-18 03:16:13 80 /min [facility] Body temperature 2021-03-18 03:16:13 36.67 Cindi [facility] Respiratory rate 2021-03-18 03:16:13 19 /min [facility] Oxygen saturation in Arterial blood by Pulse oximetry 2021-03-18 03:16:13 99 /min [facility] Body weight 2021-03-18 01:02:00 129.729 kg [facility] BMI 2021-03-18 01:02:00 33.91 kg/m2 [facility] Oxygen saturation in Arterial blood by Pulse oximetry 2020-11-15 04:31:00 97 /min [facility] Systolic blood pressure 2020-11-15 03:25:00 173 mm[Hg] [facility] Diastolic blood pressure 2020-11-15 03:25:00 97 mm[Hg] [facility] Heart rate 2020-11-15 03:25:00 84 /min [facility] Body temperature 2020-11-15 03:25:00 36.67 Cindi [facility] Respiratory rate 2020-11-15 03:25:00 20 /min [facility] Body weight 2020-11-15 03:25:00 132.45 kg [facility] BMI 2020-11-15 03:25:00 34.63 kg/m2 [facility] Oxygen saturation in Arterial blood by Pulse oximetry 2020-11-15 04:31:00 97 /min [facility] Systolic blood pressure 2020-11-15 03:25:00 173 mm[Hg] [facility] Diastolic blood pressure 2020-11-15 03:25:00 97 mm[Hg] [facility] Heart rate 2020-11-15 03:25:00 84 /min [facility] Body temperature 2020-11-15 03:25:00 36.67 Cindi [facility] Respiratory rate 2020-11-15 03:25:00 20 /min [facility] Body weight 2020-11-15 03:25:00 132.45 kg [facility] BMI 2020-11-15 03:25:00 34.63 kg/m2 [facility] Systolic blood pressure 2020-09-30 16:30:00 121 mm[Hg] [facility] Diastolic blood pressure 2020-09-30 16:30:00 66 mm[Hg] [facility] Heart rate 2020-09-30 16:30:00 72 /min [facility] Respiratory rate 2020-09-30 16:30:00 19 /min [facility] Oxygen saturation in Arterial blood by Pulse oximetry 2020-09-30 16:30:00 94 /min [facility] Body weight 2020-09-30 14:20:00 136.079 kg [facility] BMI 2020-09-30 14:20:00 35.57 kg/m2 [facility] Body temperature 2020-09-30 14:10:00 37.06 Cindi [facility] Systolic blood pressure 2020-09-30 16:30:00 121 mm[Hg] [facility] Diastolic blood pressure 2020-09-30 16:30:00 66 mm[Hg] [facility] Heart rate 2020-09-30 16:30:00 72 /min [facility] Respiratory rate 2020-09-30 16:30:00 19 /min [facility] Oxygen saturation in Arterial blood by Pulse oximetry 2020-09-30 16:30:00 94 /min [facility] Body weight 2020-09-30 14:20:00 136.079 kg [facility] BMI 2020-09-30 14:20:00 35.57 kg/m2 [facility] Body temperature 2020-09-30 14:10:00 37.06 Cindi [facility] Systolic blood pressure 2020-07-02 04:00:00 132 mm[Hg] [facility] Diastolic blood pressure 2020-07-02 04:00:00 84 mm[Hg] [facility] Heart rate 2020-07-02 04:00:00 89 /min [facility] Oxygen saturation in Arterial blood by Pulse oximetry 2020-07-02 04:00:00 95 /min [facility] Body temperature 2020-07-02 02:53:00 36.94 Cindi [facility] Respiratory rate 2020-07-02 02:53:00 18 /min [facility] Body height 2020-07-02 02:53:00 195.6 cm [facility] Body weight 2020-07-02 02:53:00 136.079 kg [facility] BMI 2020-07-02 02:53:00 35.57 kg/m2 [facility] Systolic blood pressure 2020-07-02 04:00:00 132 mm[Hg] [facility] Diastolic blood pressure 2020-07-02 04:00:00 84 mm[Hg] [facility] Heart rate 2020-07-02 04:00:00 89 /min [facility] Oxygen saturation in Arterial blood by Pulse oximetry 2020-07-02 04:00:00 95 /min [facility] Body temperature 2020-07-02 02:53:00 36.94 Cindi [facility] Respiratory rate 2020-07-02 02:53:00 18 /min [facility] Body height 2020-07-02 02:53:00 195.6 cm [facility] Body weight 2020-07-02 02:53:00 136.079 kg [facility] BMI 2020-07-02 02:53:00 35.57 kg/m2 [facility] BP Systolic 2022-07-09 10:22:00 158 mm[Hg] BP Diastolic 2022-07-09 10:22:00 95 mm[Hg] Weight Measured 2022-07-09 10:22:00 261.40 pounds Height Measured 2022-07-09 10:22:00 77.00 inches Body Temperature 2022-07-09 10:22:00 98.00 degrees Heart Rate 2022-07-09 10:22:00 60.00 /min Respiratory Rate 2022-07-09 10:22:00 16.00 /min Height Measured 2021-11-20 17:16:00 77.00 inches Body Temperature 2021-11-20 17:16:00 98.30 degrees Heart Rate 2021-11-20 17:16:00 86.00 /min Respiratory Rate 2021-11-20 17:16:00 17.00 /min BP Systolic 2021-11-20 17:16:00 144 mm[Hg] BP Diastolic 2021-11-20 17:16:00 89 mm[Hg] Weight Measured 2021-11-20 17:16:00 276.40 pounds BP Systolic 2021-10-17 16:20:00 157 mm[Hg] BP [...] W CONTRAST 2024-04-02 14:49:11 Trevor Taylor Tiffanie [facility] URINALYSIS 2024-04-02 14:18:00 Trevor Taylor [facility] LIPASE 2024-04-02 14:12:00 Trevor Taylor [facility] MAGNESIUM 2024-04-02 14:12:00 Trevor Taylor [facility] TROPONIN I 2024-04-02 14:12:00 Trevor Taylor Tiffanie [facility] COMP. METABOLIC PANEL (78320) 2024-04-02 14:12:00 Trevor Taylor [facility] LIPID PANEL ([id number])(TOTAL CHOLESTEROL, TRIGLYCERIDES, HDL) 2024-04-02 14:12:00 Trevor Taylor [facility] CBC WITH DIFF 2024-04-02 14:12:00 Trevor Taylor [facility] LIPASE 2024-02-21 03:08:00 Leti Rivas [facility] COMP. METABOLIC PANEL ([id number]) 2024-02-21 03:08:00 Leti Rivas [facility] CBC WITH DIFF 2024-02-21 03:08:00 Leti Rivas [facility] URINALYSIS 2024-02-21 03:08:00 Leti Rivas [facility] CT ABDOMEN PELVIS W CONTRAST 2023-12-10 02:36:24 Abraham Orantes [facility] COMP. METABOLIC PANEL ([id number]) 2023-12-10 02:05:00 Abraham Orantes [facility] CBC WITH DIFF 2023-12-10 02:05:00 Abraham Orantes [facility] URINALYSIS 2023-12-10 02:05:00 Abraham Orantes [facility] CT ABDOMEN PELVIS WO CONTRAST 2023-08-04 04:23:15 Abraham Orantes [facility] BASIC METABOLIC PANEL (NA, K, CL, CO2, GLUCOSE, BUN, CREATININE, CA) 2023-08-04 02:57:00 Abraham Orantes [facility] CBC WITH DIFF 2023-08-04 02:57:00 Abraham Orantes [facility] URINALYSIS 2023-08-04 02:57:00 Abraham Orantes [facility] NOTICE OF PRIVACY PRACTICES 2023-08-04 02:16:09 Doctor Unassigned, [place] [facility] CONSENT/REFUSAL FOR DIAGNOSIS AND TREATMENT 2023-08-04 02:15:41 Doctor Unassigned, [place] [facility] LIPASE 2023-07-25 16:37:[address] [facility] MAGNESIUM 2023-07-25 16:37:[address] [facility] TROPONIN I 2023-07-25 16:37:[address] [facility] COMP. METABOLIC PANEL ([id number]) 2023-07-25 16:37:00 Trevor Taylor [facility] CBC WITH DIFF 2023-07-25 16:37:00 Trevor Taylor [facility] URINALYSIS 2023-07-25 16:37:00 Trevor Taylor [facility] CONSENT/REFUSAL FOR DIAGNOSIS AND TREATMENT 2023-07-25 15:41:41 Doctor Unassigned, [place] [facility] US GALL BLADDER 2023-07-24 22:46:02 Johnathan Avila Pet er [facility] URINALYSIS 2023-07-24 20:10:00 Johnathan Avila [facility] EXTRA TUBE URINE CULTURE 2023-07-24 20:10:00 Ember Avila [facility] LIPASE 2023-07-24 20:09:00 Johnathan Avila [facility] COMP. METABOLIC PANEL ([id number]) 2023-07-24 20:09:00 Johnathan Avila [facility] LIPID PANEL ([id number])(TOTAL CHOLESTEROL, TRIGLYCERIDES, HDL) 2023-07-24 20:09:00 Johnathan Avila [facility] CBC WITH DIFF 2023-07-24 20:09:00 Johnathan Avila [facility] CONSENT/REFUSAL FOR DIAGNOSIS AND TREATMENT 2023-07-24 18:31:11 Doctor Unassigned, [place] [facility] XR CHEST 2 VW 2023-07-12 03:54:00 [facility] 2023-07-12 02:31:00 [facility] TROPONIN I 2023-07-12 02:14:00 Norm Saleh [facility] COMP. METABOLIC PANEL (96169) 2023-07-12 02:14:00 Norm Saleh [facility] CBC WITH DIFF 2023-07-12 02:14:00 Norm Saleh [facility] COVID-19 (ID NOW RAPID TESTING) 2023-07-12 02:14:00 Norm Saleh [facility] CONSENT/REFUSAL FOR DIAGNOSIS AND TREATMENT 2023-07-12 01:47:09 Doctor Unassigned, [place] [facility] CONSENT FOR MEDICAL TREATMENT OF A MINOR 2023-07-10 05:01:00 Doctor Unassigned, [place] [facility] CT ABDOMEN PELVIS W CONTRAST 2023-07-03 10:43:57 Haresh Santamaria [facility] URINALYSIS 2023-07-03 10:23:00 DeedeefderHaresh chan [facility] LIPASE 2023-07-03 10:11:00 DeedeefderHaresh chan [facility] COMP. METABOLIC PANEL ([id number]) 2023-07-03 10:11:00 DeedeefderHaresh chan [facility] CBC WITH DIFF 2023-07-03 10:11:00 Haresh Santamaria [facility] CONSENT/REFUSAL FOR DIAGNOSIS AND TREATMENT 2023-07-03 09:36:41 Doctor Unassigned, [place] [facility] CT ABDOMEN PELVIS W CONTRAST 2023-05-08 02:15:59 Riya Joseph Connie [facility] HB ABO GROUPING 2023-05-08 01:25:00 Elvin Joseph [facility] LIPASE 2023-05-08 01:19:00 Elvin Joseph Marie [facility] COMP. METABOLIC PANEL ([id number]) 2023-05-08 01:19:00 Riya Joseph Connie [facility] CBC WITH DIFF 2023-05-08 01:19:00 Elvin Joseph Marie [facility] COVID-19 (ID NOW RAPID TESTING) 2023-05-08 01:19:00 Riya Joseph [facility] CONSENT/REFUSAL FOR DIAGNOSIS AND TREATMENT 2023-05-07 22:22:14 Doctor Unassigned, [place] [facility] LIPASE 2023-05-02 03:01:00 [facility] COMP. METABOLIC PANEL ([id number]) 2023-05-02 03:01:00 Aydin Matos [facility] ETHANOL 2023-05-02 03:01:[address] [facility] CBC WITH DIFF 2023-05-02 03:01:00 Aydin Matos [facility] URINALYSIS 2023-05-02 03:01:00 Aydin Matos [facility] URINE DRUG (IMMUNOASSAY) - COMPREHENSIVE DRUG SCREEN W/O REFLEX 2023-05-02 03:01:00 Aydin Matos [facility] CONSENT/REFUSAL FOR DIAGNOSIS AND TREATMENT 2023-05-02 02:28:20 Doctor Unassigned, [place] [facility] BASIC METABOLIC PANEL (NA, K, CL, CO2, GLUCOSE, BUN, CREATININE, CA) 2023-04-22 16:47:00 Natali Alexander [facility] LIPASE 2023-04-22 12:58:00 Natali Alexander [facility] BASIC METABOLIC PANEL (NA, K, CL, CO2, GLUCOSE, BUN, CREATININE, CA) 2023-04-22 12:58:00 Benjamin Diley [facility] URINALYSIS 2023-04-22 11:44:00 Abraham Orantes [facility] CREATINE KINASE 2023-04-22 09:06:00 Benjamin Diley [facility] LIPASE 2023-04-22 09:06:00 Natali Alexander [facility] COMP. METABOLIC PANEL ([id number]) 2023-04-22 09:06:00 Abraham Orantes [facility] CBC WITH DIFF 2023-04-22 09:06:00 Abraham Orantes [facility] CONSENT/REFUSAL FOR DIAGNOSIS AND TREATMENT 2023-04-22 08:52:58 Doctor Unassigned, [place] [facility] LIPASE 2023-04-16 12:30:00 Christa Adelaide [facility] TROPONIN I 2023-04-16 12:30:00 Christa Adelaide [facility] COMP. METABOLIC PANEL ([id number]) 2023-04-16 12:30:00 Adelaide Goodwin [facility] CBC WITH DIFF 2023-04-16 12:30:00 Adelaide Goodwin [facility] CONSENT/REFUSAL FOR DIAGNOSIS AND TREATMENT 2023-04-16 11:48:23 Doctor Unassigned, [place] [facility] LIPASE 2023-04-01 05:08:00 [facility]atha [facility] TROPONIN I 2023-04-01 05:08:00 Hemalatha [facility] COMP. METABOLIC PANEL ([id number]) 2023-04-01 05:08:00 Hemalatha Mora [facility] CBC WITH DIFF 2023-04-01 05:08:00 Hemalatha Mora [facility] URINALYSIS 2023-04-01 05:08:00 Hemalatha [facility] CONSENT/REFUSAL FOR DIAGNOSIS AND TREATMENT 2023-04-01 04:51:45 Doctor Unassigned, [place] [facility] ASSIGNMENT OF BENEFITS 2023-02-13 21:19:49 Docto r Unassigned, [place] [facility] POCT GLUCOSE (AUTOMATED) 2023-02-13 21:00:00 Alan Gonzales [facility] CONSENT/REFUSAL FOR DIAGNOSIS AND TREATMENT 2023-02-13 20:50:30 Doctor Unassigned, [place] [facility] REFERRAL- REQUEST/RESPONSE 2023-01-05 05:01:00 Doctor Unassigned, [place] [facility] LIPASE 2022-12-09 05:03:00 Soham Clarke [facility] COMP. METABOLIC PANEL ([id number]) 2022-12-09 05:03:00 Soham Clarke [facility] CBC WITH DIFF 2022-12-09 05:03:00 [facility]oham [facility]IS 2022-12-09 05:03:00 Soham Clarke [facility] NOTICE OF PRIVACY PRACTICES 2022-12-09 04:46:36 Doctor Unassigned, [place] [facility] CONSENT/REFUSAL FOR DIAGNOSIS AND TREATMENT 2022-12-09 04:46:16 Doctor Unassigned, [place] [facility] CT ABDOMEN PELVIS W CONTRAST 2022-11-25 05:38:20 Lion Nascimento [facility] LIPASE 2022-11-25 05:06:[address] [facility] HEPATIC FUNCTION PANEL ([id number]) (ALB,T.PRO,BILI T,BU/BC,ALT,AST,ALK PHOS) 2022-11-25 05:06:00 Lion Nascimento [facility] BASIC METABOLIC PANEL (NA, K, CL, CO2, GLUCOSE, BUN, CREATININE, CA) 2022-11-25 05:06:00 [facility] CBC WITH DIFF 2022-11-25 05:06:00 Lion Nascimento [facility] URINALYSIS 2022-11-25 05:06:[address] [facility] CONSENT/REFUSAL FOR DIAGNOSIS AND TREATMENT 2022-11-25 04:35:51 Doctor Unassigned, [place] [facility] EXTERNAL PROVIDER RECORDS 2022-10-23 06:01:00 Do ctor Unassigned, [place] [facility] CBC WITH DIFF 2022-10-12 21:26:00 Lb Bates [facility] PROSTATIC SPECIFIC ANTIGEN 2022-10-12 10:48:00 Jonh Roman [facility] HEPATIC FUNCTION PANEL ([id number]) (ALB,T.PRO,BILI T,BU/BC,ALT,AST,ALK PHOS) 2022-10-12 10:48:00 Lb Bates [facility] BASIC METABOLIC PANEL (NA, K, CL, CO2, GLUCOSE, BUN, CREATININE, CA) 2022-10-12 10:48:00 Lb Bates [facility] CBC WITH DIFF 2022-10-12 10:48:00 Lb Bates [facility] HEPATIC FUNCTION PANEL ([id number]) (ALB,T.PRO,BILI T,BU/BC,ALT,AST,ALK PHOS) 2022-10-11 23:53:00 Lb Bates [facility] BASIC METABOLIC PANEL (NA, K, CL, CO2, GLUCOSE, BUN, CREATININE, CA) 2022-10-11 23:53:00 Lb Bates [facility] US GALL BLADDER 2022-10-11 22:28:58 Lb Bates [facility] ABORH CONFIRMATION (LAB ONLY) 2022-10-11 21:24:00 Lb Bates [facility] URINALYSIS 2022-10-11 21:23:00 Lb Bates [facility] HB ABO GROUPING 2022-10-11 20:41:00 Lb Bates [facility] CBC WITH DIFF 2022-10-11 20:35:00 [facility]PELVIS 2022-10-11 14:52:00 Aydin Matos [facility] HB ECG ROUTINE & RHYTHM STRIP 2022-10-11 13:48:04 Aydin Matos [facility] LIPASE 2022-10-11 13:42:00 [facility] TROPONIN I 2022-10-11 13:42:00 Aydin Matos [facility] COMP. METABOLIC PANEL ([id number]) 2022-10-11 13:42:00 Aydin Matos [facility] LIPID PANEL (45356)(TOTAL CHOLESTEROL, TRIGLYCERIDES, HDL) 2022-10-11 13:42:00 Lb Bates [facility] CBC WITH DIFF 2022-10-11 13:42:00 Aydin Matos [facility] PROTHROMBIN TIME / INR 2022-10-11 13:42:00 Mahnaz Matos [facility] ACTIVATED PARTIAL THRMPLAS TAE 2022-10-11 13:42:00 Aydin Matos [facility] N-TERMINAL PRO-BNP 2022-10-11 13:42:00 Aydin Matos [facility] URINE DRUG (IMMUNOASSAY) - COMPREHENSIVE DRUG SCREEN W/O REFLEX 2022-10-11 13:42:00 Aydin Matos [facility] CONSENT/REFUSAL FOR DIAGNOSIS AND TREATMENT 2022-10-11 12:24:48 Doctor Unassigned, [place] [facility] CT ABDOMEN PELVIS W CONTRAST 2022-10-09 06:30:25 Abraham Orantes [facility] LIPASE 2022-10-09 05:24:00 Abraham Orantes [facility] COMP. METABOLIC PANEL ([id number]) 2022-10-09 05:24:00 Abraham Orantes [facility] CBC WITH DIFF 2022-10-09 05:24:00 Abraham Orantes [facility] URINALYSIS 2022-10-09 05:24:00 Abraham Orantes [facility] CONSENT/REFUSAL FOR DIAGNOSIS AND TREATMENT 2022-10-09 03:56:57 Doctor Unassigned, [place] [facility] COMP. METABOLIC PANEL ([id number]) 2022-08-20 15:11:00 Trevor Taylor [facility] CBC WITH DIFF 2022-08-20 15:11:00 Trevor Taylor [facility] URINALYSIS 2022-08-20 15:11:00 Trevor Taylor [facility] CONSENT/REFUSAL FOR DIAGNOSIS AND TREATMENT 2022-08-20 14:32:58 Doctor Unassigned, [place] [facility] CT ABDOMEN PELVIS W CONTRAST 2022-06-09 13:12:35 Soham Clarke [facility] LIPASE 2022-06-09 12:48:00 Soham Clarke [facility] COMP. METABOLIC PANEL ([id number]) 2022-06-09 12:48:00 Soham Clarke [facility] CBC WITH DIFF 2022-06-09 12:48:00 [facility] 2022-06-09 12:48:00 Soham Clarke [facility] NOTICE OF PRIVACY PRACTICES 2022-06-09 11:47:39 Doctor Unassigned, [place] [facility] CONSENT/REFUSAL FOR DIAGNOSIS AND TREATMENT 2022-06-09 11:47:18 Doctor Unassigned, [place] [facility] PHOSPHORUS 2021-11-01 09:55:[address] [facility] MAGNESIUM 2021-11-01 09:55:00 Darshan, Jerrica [facility] BASIC METABOLIC PANEL (NA, K, CL, CO2, GLUCOSE, BUN, CREATININE, CA) 2021-11-01 09:55:00 Darshan [facility] CBC WITH DIFF 2021-11-01 09:55:00 Darshan [facility] PHOSPHORUS 2021-10-31 08:45:[address] [facility] CREATINE KINASE 2021-10-31 08:45:00 Roxanne Swenson [facility] MAGNESIUM 2021-10-31 08:45:00 Emelia Gallego [facility] TROPONIN I 2021-10-31 08:45:00 Leela [facility] COMP. METABOLIC PANEL ([id number]) 2021-10-31 08:45:00 [facility] 2021-10-31 08:45:[address] [facility] PROTHROMBIN TIME / INR 2021-10-31 08:45:[address] [facility] N-TERMINAL PRO-BNP 2021-10-31 08:45:00 Roxanne Swenson [facility] LACTIC ACID WHOLE BLOOD 2021-10-31 08:45:00 Erwin Swenson [facility] FECES CULTURE 2021-10-30 22:27:00 Monica Hernandez [facility] OCCULT (GUAIAC) BLOOD 2021-10-30 22:27:00 Juany Hernandez [facility] CLOSTRIDIUM DIFFICILE TOXIN 2021-10-30 22:27:00 Monica Hernandez [facility] COVID-19 (ID NOW RAPID TESTING) 2021-10-30 21:24:00 Madison Sepulveda [facility] LAB ONLY COVID INTERPRETATION 2021-10-30 21:24:00 Madison Sepulveda [facility] CT ABDOMEN PELVIS W CONTRAST 2021-10-30 20:44:09 Madison Sepulveda [facility] LIPASE 2021-10-30 20:25:00 Madison Sepulveda U [facility] TROPONIN I 2021-10-30 20:25:[address] [facility] COMP. METABOLIC PANEL ([id number]) 2021-10-30 20:25:00 Madison Sepulveda [facility] CBC WITH DIFF 2021-10-30 20:25:00 Madison Sepulveda [facility] URINALYSIS 2021-10-30 20:25:00 Madison Sepulveda U [facility] N-TERMINAL PRO-BNP 2021-10-30 20:25:00 Roxanne Swenson [facility] CONSENT/REFUSAL FOR DIAGNOSIS AND TREATMENT 2021-10-30 19:24:05 Doctor Unassigned, [place] [facility] CREATINE KINASE 2021-05-24 04:40:00 Felipe Ortega [facility] BASIC METABOLIC PANEL (NA, K, CL, CO2, GLUCOSE, BUN, CREATININE, CA) 2021-05-24 04:40:00 Felipe Ortega [facility] URINALYSIS 2021-05-24 02:14:00 Felipe Ortega [facility] CREATINE KINASE 2021-05-24 01:53:00 Felipe Ortega U [facility] TROPONIN I 2021-05-24 01:53:00 Felipe Ortega [facility] COMP. METABOLIC PANEL ([id number]) 2021-05-24 01:53:00 Felipe Ortega [facility] CBC WITH DIFF 2021-05-24 01:53:00 Felipe Ortega [facility] N-TERMINAL PRO-BNP 2021-05-24 01:53:00 Felipe Ortega [facility] ASSIGNMENT OF BENEFITS 2021-05-23 00:46:04 Docto r Unassigned, [place] [facility] CONSENT/REFUSAL FOR DIAGNOSIS AND TREATMENT 2021-05-22 23:31:57 Doctor Unassigned, [place] [facility] SARS-COV-2 COVID-19 VACCINE,0.3ML,IM (PFIZER) 2021-05-07 16:12:40 Doctor Unassigned, [place] [facility] RAPID STREP SCREEN FOR GROUP A 2021-05-02 00:07:00 Aydin Matos [facility] COVID-19 (ID NOW RAPID TESTING) 2021-05-02 00:07:00 Aydin Matos [facility] CONSENT/REFUSAL FOR DIAGNOSIS AND TREATMENT 2021-05-01 23:56:07 Doctor Unassigned, [place] [facility] RAPID STREP SCREEN FOR GROUP A 2021-04-02 01:05:00 Nikhil Blanton [facility] COVID-19 (ID NOW RAPID TESTING) 2021-04-02 01:05:00 Nikhil Blanton [facility] NOTICE OF PRIVACY PRACTICES 2021-04-02 00:56:18 Doctor Unassigned, [place] [facility] CONSENT/REFUSAL FOR DIAGNOSIS AND TREATMENT 2021-04-02 00:49:05 Doctor Unassigned, [place] [facility] XR WRIST 3+ VW LEFT 2021-03-18 01:19:59 Destini Blanton [facility] URINALYSIS 2021-03-18 01:12:00 Nikhil Blanton [facility] CONSENT/REFUSAL FOR DIAGNOSIS AND TREATMENT 2021-03-18 00:56:01 Doctor Unassigned, [place] [facility] XR CHEST 1 VW 2020-11-15 03:48:28 Darnell Hsu [facility] CONSENT/REFUSAL FOR DIAGNOSIS AND TREATMENT 2020-11-15 03:11:27 Doctor Unassigned, [place] [facility] CT HEAD WO CONTRAST 2020-09-30 15:00:43 Jessica Siddiqui ra [facility] XR CHEST 1 VW 2020-09-30 14:37:13 [facility] 2020-09-30 14:25:00 Jessy Siddiqui [facility] TROPONIN I 2020-09-30 14:25:00 Jessy Siddiqui [facility] COMP. METABOLIC PANEL ([id number]) 2020-09-30 14:25:00 Jessy Siddiqui [facility] CBC WITH DIFF 2020-09-30 14:25:00 Jessy Siddiqui U [facility] N-TERMINAL PRO-BNP 2020-09-30 14:25:00 Solitario Siddiqui [facility] NOTICE OF PRIVACY PRACTICES 2020-09-30 13:57:13 Doctor Unassigned, [place] [facility] CONSENT/REFUSAL FOR DIAGNOSIS AND TREATMENT 2020-09-30 13:55:57 Doctor Unassigned, [place] [facility] EKG-12 LEAD 2020-07-02 03:20:42 Dyana Felipe [facility] LIPASE 2020-07-02 03:05:00 Abraham Orantes [facility] TROPONIN I 2020-07-02 03:05:00 Dyana Felipe [facility] COMP. METABOLIC PANEL ([id number]) 2020-07-02 03:05:00 Abraham Orantes [facility] CBC WITH DIFF 2020-07-02 03:05:00 Abraham Ornates [facility] NOTICE OF PRIVACY PRACTICES 2020-07-02 02:48:43 Doctor Unassigned, [place] [facility] CONSENT/REFUSAL FOR DIAGNOSIS AND TREATMENT 2020-07-02 02:46:14 Doctor Unassigned, [place] [facility] Plan of Care Planned Activity Planned Date Details Comments Source Goal Plan of Care Note [code = 97050-2] Goal Plan of Care Note [code = 52797-5] Goal Plan of Care Note [code = 94160-2] Goal Plan of Care Note [code = 47912-6] Goal Plan of Care Note [code = 65586-1] Goal Plan of Care Note [code = 91273-9] Goal Plan of Care Note [code = 25790-9] Goal Plan of Care Note [code = 74800-8] Goal Plan of Care Note [code = 29818-3] Goal Plan of Care Note [code = 86655-9] Goal Plan of Care Note [code = 54935-4] Goal Plan of Care Note [code = 37028-2] Goal Plan of Care Note [code = 12510-5] Goal Plan of Care Note [code = 82149-2] Goal Plan of Care Note [code = 33453-3] Encounters Start Date/Time End Date/Time Encounter Type Admission Type Attending [facility] Care Department Encounter ID Source 2022-07-29 14:17:02 [facility] [id number] [facility] 2022-07-11 08:20:03 Outpatient Mauyri James [facility] [id number] [facility] 2024-05-30 09:45:00 2024-05-30 09:45:00 Outpatient HAYDEN ORTIZ [id number] [facility] 2024-05-27 09:30:00 2024-05-27 09:30:00 Outpatient ADRI TAYLOR [id number] [facility] 2024-05-24 15:00:00 2024-05-24 15:00:00 Outpatient HAYDEN ORTIZ [id number] [facility] 2024-05-18 11:10:00 2024-05-18 11:10:00 Outpatient NEPTALIARIELLEThomas HOLLIDAY [id number] [facility] 2024-05-12 00:00:00 2024-05-12 00:00:00 Outpatient LUZ MARIA HOLLIDAY [id number] [facility] 2024-05-09 00:00:00 2024-05-09 00:00:00 Outpatient HAYDEN ORTIZ [id number] [facility] 2024-05-05 00:00:00 2024-05-05 00:00:00 Outpatient GIBRAN MCADAMS [id number] [facility] 2024-05-04 08:30:00 2024-05-04 08:30:00 Outpatient LUZ MARIA HOLLIDAY [id number] [facility] 2024-04-29 00:00:00 2024-04-29 00:00:00 Outpatient HAYDEN ORTIZ [id number] [facility] 2024-04-22 08:00:00 2024-04-22 08:00:00 Outpatient LUZ MARIA HOLLIDAY [id number] [facility] 2024-04-12 09:40:00 2024-04-12 09:40:00 Outpatient BROOK ALLEN LUZ MARIA HOLLIDAY [id number] [facility] 2024-04-11 08:00:00 2024-04-11 08:00:00 Outpatient LUZ MARIA HOLLIDAY [id number] [facility] 2024-04-11 00:00:00 2024-04-11 00:00:00 Outpatient GIBRAN MCADAMS [id number] [facility] 2024-04-08 16:30:00 2024-04-08 16:30:00 Outpatient RAKESH MANNAN LUZ MARIA HOLLIDAY [id number] [facility] 2024-04-04 08:10:00 2024-04-04 08:10:00 Outpatient LAB90 LUZ MARIA HOLLIDAY [id number] [facility] 2024-04-02 08:39:00 2024-04-02 12:55:00 Emergency X Trevor TAYLOR K [facility] ERT [id number] [facility] 2024-04-02 08:39:00 2024-04-02 12:55:00 Emergency Trevor Taylor Tiffanie [facility] [id number] [facility] 2024-04-02 00:00:00 2024-04-02 00:00:00 Outpatient YOUNG, ELVA LUZ MARIA HOLLIDAY [id number] [facility] 2024-03-30 09:00:00 2024-03-30 09:00:00 Outpatient LAB47 LUZ MARIA HOLLIDAY [id number] [facility] 2024-03-30 08:30:00 2024-03-30 08:30:00 Outpatient GIBRAN MCADAMS [id number] [facility] 2024-03-30 00:00:00 2024-03-30 00:00:00 Outpatient DEEJAY, GIBRAN LUZ MARIA LUZ MAR[facility] [id number] [facility] 2024-03-30 00:00:00 2024-03-30 00:00:00 Outpatient PREZABirgit, HAYDEN HOLLIDAY [id number] [facility] 2024-03-28 00:00:00 2024-03-28 00:00:00 Outpatient PREZAS, HAYDEN HOLLIDAY [id number] [facility] 2024-03-23 00:00:00 2024-03-23 00:00:00 Outpatient PREZAS, HAYDEN HOLLIDAY [id number] [facility] 2024-02-29 00:00:00 2024-02-29 13:30:22 Letter (Out) Karl Ferguson [facility] [place] [id number] [facility] 2024-02-24 00:00:00 2024-02-24 00:00:00 Outpatient OUTSIDEMELINA [id number] [facility] 2024-02-24 00:00:00 2024-02-24 00:00:00 Outpatient HAYDEN ORTIZ [id number] [facility] 2024-02-22 00:00:00 2024-02-22 14:50:01 Letter (Out) Elida Lewis [facility] [id number] [facility] 2024-02-22 00:00:00 2024-02-22 00:00:00 Outpatient HAYDEN ORTIZ LUZ MARIA [id number] Luz Maria [facility] 2024-02-20 21:47:00 2024-02-20 23:54:00 Emergency X LETI RIVAS ERICCA [facility] ERT [id number] [facility] 2024-02-20 21:47:00 2024-02-20 23:54:00 Emergency Leti Rivas [facility] [id number] [facility] 2024-01-26 00:00:00 2024-01-26 00:00:00 Outpatient PREZASHAYDEN LUZ MARIA HOLLIDAY [id number] [facility] 2024-01-15 00:00:00 2024-01-15 00:00:00 Outpatient PREZAS HAYDEN HOLLIDAY [id number] [facility]z Maria [facility] 2023-12-28 00:00:00 2023-12-28 00:00:00 Outpatient PREZAYUDY GenaoHERACLIO HOLLIDAY [id number] [facility]z Maria [facility] 2023-12-18 00:00:00 2023-12-18 00:00:00 Outpatient LUZ MARIA HOLLIDAY [id number] [facility] 2023-12-17 15:30:00 2023-12-17 15:30:00 Outpatient PREZAHAYDEN Genao LUZ MARIA HOLLIDAY [id number] [facility] 2023-12-11 00:00:00 2023-12-11 00:00:00 Outpatient PREZAHAYDEN Genao LUZ MARIA HOLLIDAY [id number] [facility] 2023-12-09 20:14:00 2023-12-09 23:50:00 Emergency X OSMAR ORANTESONESIMO [facility] ERT [id number] [facility] 2023-12-09 20:14:00 2023-12-09 23:50:00 Emergency Abraham Orantes S [facility] 1.2.840.114 350.1.13.10 4.2.7.2.686 [id number] [facility] 2023-11-24 00:00:00 2023-11-24 00:00:00 Outpatient PREHAYDEN MILNER LUZ MARIA HOLLIDAY [id number] [facility] 2023-11-18 00:00:00 2023-11-18 00:00:00 Letter (Out) Chavez Turner [facility] ..840.114 350.1.13.10 4.2.7.2.686 [id number] [facility] 2023-11-10 14:00:00 2023-11-10 14:00:00 Outpatient PREZAS, HAYDEN HOLLIDAY [id number] Luz Maria [facility] 2023-11-09 00:00:00 2023-11-09 00:00:00 Outpatient PREZABirgit HAYDEN HOLLIDAY [id number] Luz Maria [facility] 2023-11-06 00:00:00 2023-11-06 00:00:00 Outpatient PREZABirgit HAYDEN HOLLIDAY [id number] [facility] 2023 11:30:00 2023 11:30:00 Outpatient CALLIE THORNE JULIANA [facility] [id number] [facility] 2023-10-16 00:00:00 2023-10-16 00:00:00 Outpatient PREZASHAYDEN [id number] [facility] 2023-10-13 00:00:00 2023-10-13 00:00:00 Outpatient LUZ MARIA HOLLIDAY [id number] [facility] 2023-10-06 14:30:00 2023-10-06 14:30:00 Outpatient PREZAHAYDEN Genao [id number] [facility] 2023-08-14 00:00:00 2023-08-14 00:00:00 Outpatient MERLYN WORTHINGTON [facility] [id number] [facility] 2023-08-13 00:00:00 2023-08-13 00:00:00 Patient Secure Msg Doctor Unassigned, [place] [facility] 1..840.114 350.1.13.10 4.2.7.2.686 [id number] [facility] 2023-08-11 16:15:00 2023-08-11 16:15:00 Outpatient ADAN CHESTER LUZ MARIA [id number] Luz Maria Ng 2023-08-03 20:26:00 2023-08-04 00:05:00 Emergency X ABRAHAM ORANTES [facility] ERT [id number] [facility] 2023-08-03 20:26:00 2023-08-04 00:05:00 Emergency Abraham Orantes [facility] 1.840.114 350.1.13.10 4.2.7.2.686 [id number] [facility] 2023-08-03 00:00:00 2023-08-03 00:00:00 Outpatient KIARA RICHARDSON LUZ MARIA HOLLIDAY [id number] [facility] 2023-08-03 00:00:00 2023-08-03 00:00:00 Orders Only Doctor Unassigned, [place] [facility] 1.84.114 350.1.13.10 4.2.7.2.686 [id number] [facility] 2023-07-25 09:58:00 2023-07-25 12:56:00 Emergency X MADDIE Trevor [facility] ERT [id number] [facility] 2023-07-25 09:58:00 2023-07-25 12:56:00 Emergency Trevor Taylor [facility] 1.840.114 350.1.13.10 4.2.7.2.686 [id number] [id number] [facility] 2023-07-24 12:36:00 2023-07-24 17:49:00 Emergency X JOHNATHAN AVILA [facility] ERT [id number] [facility] 2023-07-24 12:36:00 2023-07-24 17:49:00 Emergency Johnathan Avila [facility] 1.84.114 350.1.13.10 4.2.7.2.686 [id number] [facility] 2023-07-24 14:30:00 2023-07-24 14:30:00 Outpatient ANABELADAN Topete LUZ MARIA HOLLIDAY [id number] Luz Maria marcell 2023-07-24 00:00:00 2023-07-24 00:00:00 Telephone [facility] .2.840.114 350.1.13.10 4.2.7.2.686 [id number] [id number] [facility] 2023-07-23 05:22:00 2023-07-23 10:02:00 Emergency EM Jessie Paul [facility] [id number] [facility] 2023-07-22 00:00:00 2023-07-22 00:00:[facility] 1..840.114 350.1.13.10 4.2.7.2.686 [id number] [facility] 2023-07-22 00:00:00 2023-07-22 00:00:00 Patient Secure Msg Doctor Unassigned, [place] [facility] 1.2.840.114 350.1.13.10 4.2.7.2.686 [id number] [facility] 2023-07-20 00:00:00 2023-07-20 00:00:00 Telephone [facility] ..840.114 350.1.13.10 4.2.7.2.686 [id number] [facility] 2023-07-17 13:45:00 2023-07-17 13:45:00 Outpatient JIMMY BRENNAN [id number] Luz [facility] 2023-07-11 20:53:00 2023-07-11 23:38:00 Emergency X ALEJANDRO HEWITTANCA [facility] ERT [id number] [facility] 2023-07-11 20:53:00 2023-07-11 23:38:00 Emergency Stephie Hew[facility] 1.840.114 350.1.13.10 4.2.7.2.686 [id number] [facility] 2023-07-10 08:45:00 2023-07-10 12:03:37 Outpatient R MERLYN HIDALGO [facility] [id number] [facility] 2023-07-10 08:45:00 2023-07-10 12:03:37 Office Visit Merlyn Hidalgo [facility] 1.840.114 350.1.13.10 4.2.7.2.686 [id number] [facility] 2023-07-10 00:00:00 2023-07-10 00:00:00 Orders Only Doctor Unassigned, [place] [facility] 1.840.114 350.1.13.10 4.2.7.2.686 [id number] [facility] 2023-07-08 09:15:00 2023-07-08 09:15:00 Outpatient KIARA RICHARDSON [id number] Luz Maria Ng 2023-07-03 04:49:00 2023-07-03 09:47:00 Emergency X MIRIAM LUDWIG DIETRICH [facility] ERT [id number] [facility] 2023-07-03 04:49:00 2023-07-03 09:47:00 Emergency Haresh Santamaria Dietrich [facility] 1.840.114 350.1.13.10 4.2.7.2.686 [id number] [facility] 2023-07-01 22:56:00 2023-07-02 01:00:00 Emergency EM Jessie Gleason [facility] ER [id number] 61 [facility] 2023-05-20 15:50:00 2023-05-20 15:50:00 Outpatient LAB56 LUZ MARIA LUZ MARIA [id number] Luz Maria Ng 2023-05-20 15:15:00 2023-05-20 15:15:00 Outpatient ENIOKATHYA KIARA LUZ MARIA HOLLIDAY [id number] Luz Maria [facility] 2023-05-07 17:37:00 2023-05-07 23:23:00 Emergency X KELSI Sharma [facility] ERT [id number] [facility] 2023-05-07 17:37:00 2023-05-07 23:23:00 Emergency [facility] sharma [facility] 1..840.114 350.1.13.10 4.2.7.2.686 [id number] [facility] 2023-05-01 21:39:00 2023-05-02 00:35:00 Emergency X MAHNAZ MATOSNELL [facility] ERT [id number] [facility] 2023-05-01 21:39:00 2023-05-02 00:35:00 Emergency Aydin Matos [facility] 1.2.840.114 350.1.13.10 4.2.7.2.686 [id number] [facility] 2023-04-22 03:51:00 2023-04-22 13:11:00 Emergency X NATALI ALEXANDER [facility] ERT [id number] [facility] 2023-04-22 03:51:00 2023-04-22 13:11:00 Emergency Abraham Orantes Whitney [facility] 1..840.114 350.1.13.10 4.2.7.2.686 [id number] [id number] [facility] 2023-04-16 07:09:00 2023-04-16 09:00:00 Emergency X ADELAIDE GOODWIN [facility] ERT [id number] [facility] 2023-04-16 07:09:00 2023-04-16 09:00:00 Emergency Adelaide Goodwin [facility] 1.2.840.114 350.1.13.10 4.2.7.2.686 [id number] [facility] 2023-03-31 23:59:00 2023-04-01 03:24:00 Emergency X HEMALATHA MORA [facility] ERT [id number] [facility] 2023-03-31 23:59:00 2023-04-01 03:24:00 Emergency Hemalatha Mora [facility] 1.2.840.114 350.1.13.10 4.2.7.2.686 [id number] 084 [id number] [facility] 2023-02-13 16:02:00 2023-02-13 17:25:00 Emergency X JESSICA GONZALES [facility] ERT [id number] [facility] 2023-02-13 16:02:00 2023-02-13 17:25:00 Emergency Jessica Gonzales Birgit [facility] 1.2.840.114 350.1.13.10 4.2.7.2.686 [id number] [id number] [facility] 2023-01-05 00:00:00 2023-01-05 00:00:00 Orders Only Doctor Unassigned, [place] [facility] 1.2.840.114 350.1.13.10 4.2.7.2.686 [id number] [facility] 2022-12-29 17:25:40 2022-12-29 17:25:40 Outpatient [facility] [id number] 0417 Dewey Tripathi Kris 2022-12-09 00:01:00 2022-12-09 01:39:00 Emergency X SOHAM CLARKE [facility] ERT [id number] [facility] 2022-12-09 00:01:00 2022-12-09 01:39:00 Emergency Soham Clarke [facility] 1.2.840.114 350.1.13.10 4.2.7.2.686 [id number] [facility] 2022-11-24 23:44:00 2022-11-25 02:56:00 Emergency X AYDIN MATOS [facility] ERT [id number] [facility] 2022-11-24 23:44:00 2022-11-25 02:56:00 Emergency Lion Nascimento [facility] 1.2.840.114 350.1.13.10 4.2.7.2.686 [id number] [facility] 2022-10-25 00:00:00 2022-10-25 00:00:00 Patient Secure Msg Doctor Unassigned, [place] [facility] 1.2.840.114 350.1.13.10 4.2.7.2.686 [id number] [facility] 2022-10-23 00:00:00 2022-10-23 00:00:00 Orders Only Doctor Unassigned, [place] [facility] 1.2.840.114 350.1.13.10 4.2.7.2.686 [id number] [facility] 2022-10-11 06:41:00 2022-10-12 17:56:00 Outpatient MARK MCKENZIE [facility] MARTI [id number] [facility] 2022-10-11 06:41:00 2022-10-12 17:56:00 Emergency Aydin Matos Norman M [facility] 1.2.840.114 350.1.13.10 4.2.7.2.686 [id number] [facility] 2022-10-08 22:15:00 2022-10-09 01:39:00 Emergency X ABRAHAM ORANTES [facility] ERT [id number] [facility] 2022-10-08 22:15:00 2022-10-09 01:39:00 Emergency Abraham Orantes [facility] 1.2.840.114 350.1.13.10 4.2.7.2.686 [id number] [id number] [facility] 2022-10-08 00:00:00 2022-10-08 00:00:00 Orders Only Doctor Unassigned, [place] [facility] 1.2.840.114 350.1.13.10 4.2.7.2.686 [id number] [facility] 2022-08-20 08:42:00 2022-08-20 12:19:00 Emergency X Trevor TAYLOR [facility] ERT [id number] [facility] 2022-08-20 08:42:00 2022-08-20 12:19:00 Emergency Trevor Taylor Tiffanie [facility] 1.2.840.114 350.1.13.10 4.2.7.2.686 [id number] 084 [id number] [facility] 2022-07-11 00:00:00 2022-07-11 00:00:00 OFFICE VISIT NEW PT LEVEL 3 STLMLC STLMLC [id number] [facility] 2022-07-09 10:07:22 2022-07-09 10:07:22 Outpatient [facility] [id number] 1026 Dewey Tripathi Kris 2022-07-09 00:00:00 2022-07-09 00:00:00 Outpatient Visit [id number] 2022-06-09 06:57:00 2022-06-09 10:27:00 Emergency X SOHAM CLARKE [facility] ERT [id number] [facility] 2022-06-09 06:57:00 2022-06-09 10:27:00 Emergency Soham Clarke [facility] 1.2.840.114 350.1.13.10 4.2.7.2.686 [id number] [facility] 2022-06-09 00:00:00 2022-06-09 00:00:00 Orders Only Doctor Unassigned, [place] [facility] 1.2840.114 350.1.13.10 4.2.7.2.686 [id number] [facility] 2021-11-04 00:00:00 2021-11-04 00:00:00 Transition of Care Ellen Carroll [facility] 1.840.114 350.1.13.10 4.2.7.2.686 [id number] [facility] 2021-10-30 13:39:00 2021-11-01 13:45:00 Inpatient X EMELIA GALLEGO [facility] [id number] [facility] 2021-10-30 13:39:00 2021-11-01 13:45:00 Hospital Encounter Madison Sepulveda David [facility] 1.840.114 350.1.13.10 4.2.7.2.686 [id number] [facility] 2021-10-30 00:00:00 2021-10-30 00:00:00 Orders Only Doctor Unassigned, [place] [facility] 1.840.114 350.1.13.10 4.2.7.2.686 [id number] [facility] 2021-05-23 20:42:00 2021-05-24 01:42:00 Emergency Felipe Ortega [place] 1.2840.114 350.1.13.10 4.2.7.2.686 [id number] 084 [id number] [facility] 2021-05-23 20:42:00 2021-05-23 20:42:00 Emergency X FELIPE ORTEGA [facility] ERT [id number] [facility] 2021-05-22 18:37:00 2021-05-22 21:40:00 Emergency Gabriella Zarate [place] 1.2.840.114 350.1.13.10 4.2.7.2.686 [id number] [facility] 2021-05-22 18:31:00 2021-05-22 18:31:00 Emergency X [facility] ERT [id number] [facility] 2021-05-07 11:11:35 2021-05-07 11:11:42 Imm/Inj Visit Nurse, Adc Pob Immunizatio David God[facility] 1.2840.114 350.1.13.10 4.2.7.2.686 [id number] [facility] 2021-05-01 19:09:00 2021-05-01 20:46:00 Emergency Blanton, Nikhil [place] 1.2840.114 350.1.13.10 4.2.7.2.686 [id number] [id number] [facility] 2021-05-01 18:53:00 2021-05-01 18:53:00 Emergency X [facility] ERT [id number] [facility] 2021-04-01 20:06:00 2021-04-01 21:56:00 Emergency Blanton, [facility] 1.2840.114 350.1.13.10 4.2.7.2.686 [id number] 084 [id number] [facility] 2021-04-01 20:06:00 2021-04-01 21:56:00 Emergency BlantonNikhil ambrocio [place] 1.2.840.114 350.1.13.10 4.2.7.2.686 [id number] 084 [id number] 2021-04-01 20:06:00 2021-04-01 20:06:00 Emergency X NIKHIL BLANTON [facility] ERT [id number] [facility] 2021-03-17 20:09:00 2021-03-17 22:19:00 Emergency Hortencia Blantonanne [place] 1.2.840.114 350.1.13.10 4.2.7.2.686 [id number] [id number] [facility] 2021-03-17 20:09:00 2021-03-17 22:19:00 Emergency Harvinder [facility] 1.2.840.114 350.1.13.10 4.2.7.2.686 [id number] 084 [id number] 2021-03-17 19:56:00 2021-03-17 19:56:00 Emergency X [facility] ERT [id number] [facility] 2020-11-15 00:00:00 2020-11-15 00:00:00 Letter (Out) Mirna Mar [facility] 1.2.840.114 350.1.13.10 4.2.7.2.686 [id number] 019 [id number] [facility] 2020-11-15 00:00:00 2020-11-15 00:00:00 Telephone Pcp, Patient Does Not Have A [facility] 1.2.840.114 350.1.13.10 4.2.7.2.686 [id number] [facility] 2020-11-15 00:00:00 2020-11-15 00:00:00 Telephone Pcp, Patient Does Not Have A [facility] 1.2.840.114 350.1.13.10 4.2.7.2.686 [id number] 2020-11-15 00:00:00 2020-11-15 00:00:00 Letter (Out) Isabela Mirna Efrem [facility] 1.2.840.114 350.1.13.10 4.2.7.2.686 [id number] [id number] 2020-11-14 21:29:00 2020-11-14 22:55:00 Emergency Hsu Darnell Sharma [place] 1.2.840.114 350.1.13.10 4.2.7.2.686 [id number] 084 [id number] [facility] 2020-11-14 21:29:00 2020-11-14 22:55:00 Emergency X HSUDARNELL STYLES [facility] ERT [id number] [facility] 2020-11-14 21:29:00 2020-11-14 22:55:00 Emergency Tez Hsumyra Sharma [place] 1.2.840.114 350.1.13.10 4.2.7.2.686 [id number] 2020-09-30 08:03:00 2020-09-30 10:45:00 Emergency Artur Jessy Pa [place] 1.2.840.114 350.1.13.10 4.2.7.2.686 [id number] 084 [id number] [facility] 2020-09-30 08:03:00 2020-09-30 10:45:00 Emergency Artur Jessy Pa [place] 1.2.840.114 350.1.13.10 4.2.7.2.686 [id number] 2020-09-30 07:58:00 2020-09-30 07:58:00 Emergency X [facility] ERT [id number] [facility] 2020-09-30 00:00:00 2020-09-30 00:00:00 Orders Only Doctor Unassigned, [place] [facility] 1.2.840.114 350.1.13.10 4.2.7.2.686 [id number] [facility] 2020-09-30 00:00:00 2020-09-30 00:00:00 Orders Only Doctor Unassigned, [place] [facility] 1.2.840.114 350.1.13.10 4.2.7.2.686 [id number] [id number] 2020-07-01 21:58:00 2020-07-01 23:54:00 Emergency DyanaFelipe [facility] 1.2.840.114 350.1.13.10 4.2.7.2.686 [id number] 084 [id number] [facility] 2020-07-01 21:58:00 2020-07-01 23:54:00 Emergency Kulm, [facility] 1.2.840.114 350.1.13.10 4.2.7.2.686 [id number] [id number] 2020-07-01 21:58:00 2020-07-01 21:58:00 Emergency X FELIPE ORTEGA [facility] ERT [id number] [facility] Results Test Description Test Time Test Comments Results Result Co mments Source [facility] W [id number] 15:06:25CT ABDOMEN PELVIS W CONTRAST HISTORY: 53 [...] hernia is seen. Degenerative changes atL5-S1 level noted.[facility]. Metabolic Panel (83945)2024-04-02 14:58:53* Test Item Value Reference Range Interpretation Comme nts NA (test code = 5061616212) 138 mmol/L 135-145 K (test code = 6189108657) 4.6 mmol/L 3.5-5.0 CL (test code = 8108032306) 105 mmol/L 98-108 CO2 TOTAL (test code = 2422700802) 28 mmol/L 23-31 AGAP (test code = 3764278157) 5 2-16 BUN (test code = 4574591313) 19 mg/dL 7-23 GLUCOSE (test code = 2559376249) 117 mg/dL 70-110 H CREATININE (test code = 2160-0) 0.91 mg/dL 0.60-1.25 TOTAL BILI (test code = 2718024385) 0.8 mg/dL 0.1-1.1 CALCIUM (test code = 7854126578) 9.2 mg/dL 8.6-10.6 T PROTEIN (test code = 6997735126) 8.4 g/dL 6.3-8.2 H ALBUMIN (test code = 2685678847) 4.4 g/dL 3.5-5.0 ALK PHOS (test code = 4967064969) 58 U/L 34-122 ALTv (test code = 1742-6) 28 U/L 5-50 AST(SGOT) (test code = 5302699611) 33 U/L 13-40 eGFR (test code = 32930-6) 102.0 mL/min/1.73m2 CKD-EPI eGFR (2020). Assuming creatinine has been stable day-to-day for at least three months, the eGFR indicates Category G1 (>= 90 mL/min/1.73 m2) Lab Interpretation (test code = 33488-5) Abnormal [facility] (70032)(Total Cholesterol, Triglycerides, HDL)2024-04-02 14:58:53* Test Item Value Reference Range Interpretation Comme nts CHOL (test code = 7570708687) 190 mg/dL 120-200 HDL (test code = 1681389230) 37 mg/dL >=40 L HDLC RATIO (test code = 3597929208) 5.1 <=5.0 H TRIG (test code = 7465760212) 107 mg/dL 30-170 LDL CHOL (test code = 46325-6) 132 mg/dL <=160 VLDL (test code = 6751005203) 21 mg/dL 5-60 Lab Interpretation (test cod e = 88200-4) Abnormal [facility]24-07-20 14:58:32* Test Item Value Reference Range Interpretation Comme nts MAGNESIUM (test code = 0209919337) 1.9 mg/dL 1.7-2.4 Lab Interpretation (test cod e = 98151-3) Normal [facility]2024-07-20 14:58:12* Test Item Value Reference Range Interpretation Comme nts LIPASE (test code = 2283092702) 384 U/L 0-220 H Lab Interpretation (test cod e = 20536-0) Abnormal [facility] with Luws1662-19-13 14:40:51* Test Item Value Reference Range Interpretation [...] 35.0 g/dL 31.2-35.0 RDW-SD (test code = 61495-8) 41.7 fL 38.5-51.6 RDW-CV (test code = 788-0) 13.3 % 12.1-15.4 PLT (test code = 777-3) 216 150-328 MPV (test code = 20371-7) 9.9 fL 9.8-13.0 NRBC/100 WBC (test code = 2040096862) 0.0 0.0-10.0 NRBC x10^3 (test code = 1321863215) See_Comment [Automated me ssage] The system which generated this result transmitted reference range: 10*3/?L. The reference range was not used to interpret this result as normal/abnormal. GRAN MAT (NEUT) % (test code = 770-8) 44.1 % IMM GRAN % (test code = 1752846104) 0.40 % LYMPH % (test code = 736-9) 45.4 % MONO % (test code = 5905-5) 8.4 % EOS % (test code = 713-8) 1.1 % BASO % (test code = 706-2) 0.6 % GRAN MAT x10^3(ANC) (test code = 5137230408) 2.31 10*3/uL 1.99-6.95 IMM GRAN x10^3 (test code = 3568534828) 0.00-0.06 LYMPH x10^3 (test code = 731-0) 2.38 10*3/uL 1.09-3.23 MONO x10^3 (test code = 742-7) 0.44 10*3/uL 0.36-1.02 EOS x10^3 (test code = 711-2) 0.06 10*3/uL 0.06-0.53 BASO x10^3 (test code = 704-7) 0.03 10*3/uL 0.01-0.09 [facility] (74251)2024-02-21 03:54:20* Test Item Value Reference Range Interpretation Comme nts NA (test code = 8862901173) 137 mmol/L 135-145 K (test code = 8320755463) 3.9 mmol/L 3.5-5.0 CL (test code = 6205025378) 106 mmol/L 98-108 CO2 TOTAL (test code = 9365025711) 26 mmol/L 23-31 AGAP (test code = 0269610036) 5 2-16 BUN (test code = 7443558877) 14 mg/dL 7-23 GLUCOSE (test code = 4300277855) 128 mg/dL 70-110 H CREATININE (test code = 2160-0) 0.98 mg/dL 0.60-1.25 TOTAL BILI (test code = 6771403903) 0.5 mg/dL 0.1-1.1 CALCIUM (test code = 4316544570) 8.6 mg/dL 8.6-10.6 T PROTEIN (test code = 3376512495) 7.4 g/dL 6.3-8.2 ALBUMIN (test code = 2133581668) 4.1 g/dL 3.5-5.0 ALK PHOS (test code = 7738345389) 66 U/L 34-122 ALTv (test code = 1742-6) 25 U/L 5-50 AST(SGOT) (test code = 1922826799) 39 U/L 13-40 eGFR (test code = 72128-7) 93.4 mL/min/1.73m2 CKD-EPI eGFR (2020). Assuming creatinine has been stable day-to-day for at least three months, the eGFR indicates Category G1 (>= 90 mL/min/1.73 m2) Lab Interpretation (test code = 20901-0) [facility]normal [facility]:53:40* Test Item Value Reference Range Interpretation Comme nts LIPASE (test code = 6721122331) 117 U/L 0-220 Lab Interpretation (test cod e = 52102-3) Normal [facility] [id number] 03:39:58* Test Item Value Reference Range Interpretation [...] 34.8 g/dL 31.2-35.0 RDW-SD (test code = 81099-9) 40.3 fL 38.5-51.6 RDW-CV (test code = 788-0) 12.7 % 12.1-15.4 PLT (test code = 777-3) 216 150-328 MPV (test code = 21631-9) 9.6 fL 9.8-13.0 L NRBC/100 WBC (test code = 7399812745) 0.0 0.0-10.0 NRBC x10^3 (test code = 5644188376) See_Comment [Automated messa ge] The system which generated this result transmitted reference range: 10*3/?L. The reference range was not used to interpret this result as normal/abnormal. GRAN MAT (NEUT) % (test code = 770-8) 32.8 % IMM GRAN % (test code = 2026054628) 0.20 % LYMPH % (test code = 736-9) 58.5 % MONO % (test code = 5905-5) 6.6 % EOS % (test code = 713-8) 1.4 % BASO % (test code = 706-2) 0.5 % GRAN MAT x10^3(ANC) (test code = 9036362211) 1.94 10*3/uL 1.99-6.95 L IMM GRAN x10^3 (test code = 9868152701) 0.00-0.06 LYMPH x10^3 (test code = 731-0) 3.46 10*3/uL 1.09-3.23 H MONO x10^3 (test code = 742-7) 0.39 10*3/uL 0.36-1.02 EOS x10^3 (test code = 711-2) 0.08 10*3/uL 0.06-0.53 BASO x10^3 (test code = 704-7) 0.03 10*3/uL 0.01-0.09 Lab Interpretation (test code = 63107-9) Abnormal [facility] with [id number] 03:17:11* Test Item Value Reference Range Interpretation [...] 34.8 g/dL 31.2-35.0 RDW-SD (test code = 40621-6) 39.9 fL 38.5-51.6 RDW-CV (test code = 788-0) 12.7 % 12.1-15.4 PLT (test code = 777-3) 240 150-328 MPV (test code = 83135-9) 9.8 fL 9.8-13.0 NRBC/100 WBC (test code = 0949359515) 0.0 0.0-10.0 NRBC x10^3 (test code = 1898660186) See_Comment [Automated messa ge] The system which generated this result transmitted reference range: 10*3/?L. The reference range was not used to interpret this result as normal/abnormal. GRAN MAT (NEUT) % (test code = 770-8) 31.3 % IMM GRAN % (test code = 0084660811) 0.00 % LYMPH % (test code = 736-9) 57.3 % MONO % (test code = 5905-5) 9.3 % EOS % (test code = 713-8) 1.6 % BASO % (test code = 706-2) 0.5 % GRAN MAT x10^3(ANC) (test code = 4605441537) 1.94 10*3/uL 1.99-6.95 L IMM GRAN x10^3 (test code = 3944093830) 0.00-0.06 LYMPH x10^3 (test code = 731-0) 3.56 10*3/uL 1.09-3.23 H MONO x10^3 (test code = 742-7) 0.58 10*3/uL 0.36-1.02 EOS x10^3 (test code = 711-2) 0.10 10*3/uL 0.06-0.53 BASO x10^3 (test code = 704-7) 0.03 10*3/uL 0.01-0.09 Lab Interpretation (test code = 35119-7) [facility] (49747)2023-12-10 03:13:49* Test Item Value Reference Range Interpretation Comme nts NA (test code = 9318251358) 141 mmol/L 135-145 K (test code = 2030635246) 4.3 mmol/L 3.5-5.0 CL (test code = 4184111738) 107 mmol/L 98-108 CO2 TOTAL (test code = 8601506173) 26 mmol/L 23-31 AGAP (test code = 2234317918) 8 2-16 BUN (test code = 4832401659) 20 mg/dL 7-23 GLUCOSE (test code = 5513841161) 123 mg/dL 70-110 H CREATININE (test code = 2160-0) 0.95 mg/dL 0.60-1.25 TOTAL BILI (test code = 3247287800) 0.8 mg/dL 0.1-1.1 CALCIUM (test code = 1609703035) 9.0 mg/dL 8.6-10.6 T PROTEIN (test code = 0507055932) 8.4 g/dL 6.3-8.2 H ALBUMIN (test code = 7533993588) 4.3 g/dL 3.5-5.0 ALK PHOS (test code = 8869433684) 58 U/L 34-122 ALTv (test code = 1742-6) 33 U/L 5-50 AST(SGOT) (test code = 1959133182) 52 U/L 13-40 H eGFR (test code = 05441-3) 96.9 mL/min/1.73m2 CKD-EPI eGFR (2020). Assuming creatinine has been stable day-to-day for at least three months, the eGFR indicates Category G1 (>= 90 mL/min/1.73 m2) Lab Interpretation (test code = 05630-8) [facility] W [id number] 03:12:08CT ABDOMEN PELVIS W CONTRAST HISTORY: 53 [...] TISSUES: No suspicious lytic or sclerotic bony lesions.[facility] BASIC METABOLIC PANEL (NA, K, CL, CO2, GLUCOSE, BUN, CREATININE, CA)2023-08-04 03:27:21* Test Item Value Reference Range Interpretation Comme nts NA (test code = 2600788441) 140 mmol/L 135-145 K (test code = 2747110124) 3.9 mmol/L 3.5-5.0 CL (test code = 5872933165) 104 mmol/L 98-108 CO2 TOTAL (test code = 0443604121) 28 mmol/L 23-31 AGAP (test code = 9363192198) 8 2-16 BUN (test code = 2327527030) 15 mg/dL 7-23 GLUCOSE (test code = 4180894903) 155 mg/dL 70-110 H CREATININE (test code = 9994635952) 1.37 mg/dL 0.60-1.25 H CALCIUM (test code = 2961149751) 9.5 mg/dL 8.6-10.6 eGFR (test code = 37772-0) 62.8 mL/min/1.73m2 CKD-EPI eGFR (2020). Assuming creatinine has been stable day-to-day for at least three months, the eGFR indicates Category G2 (60 - 89 mL/min/1.73 m2) Lab Interpretation (test code = 54822-6) Abnormal [facility] WITH [id number] 03:12:39* Test Item Value Reference Range Interpretation Comme nts WBC (test code = 6690-2) 6.98 See_Comment [Automated [employer]] The system which generated this result transmitted reference range: 4.20 - 10.70 10*3/?L. The reference range was not used to interpret this result as normal/abnormal. RBC (test code = 789-8) 5.27 See_Comment [Automated [employer]] The system which generated this result transmitted [...] g/dL 31.2-35.0 H RDW-SD (test code = 88809-5) 38.1 fL 38.5-51.6 L RDW-CV (test code = 788-0) 12.3 % 12.1-15.4 PLT (test code = 777-3) 238 See_Comment [Automated OKKAM] The system which generated this result transmitted reference range: 150 - 328 10*3/?L. The reference range was not used to interpret this result as normal/abnormal. MPV (test code = 69477-1) 9.8 fL 9.8-13.0 NRBC/100 WBC (test code = 0788777815) 0.0 See_Comment [Automated me ssage] The system which generated this result transmitted reference range: 0.0 - 10.0 /100 WBCs. The reference range was not used to interpret this result as normal/abnormal. NRBC x10^3 (test code = 7432716388) See_Comment [Automated messa ge] The system which generated this result transmitted reference range: 10*3/?L. The reference range was not used to interpret this result as normal/abnormal. GRAN MAT (NEUT) % (test code = 770-8) 37.8 % IMM GRAN % (test code = 2345486360) 0.30 % LYMPH % (test code = 736-9) 52.7 % MONO % (test code = 5905-5) 7.7 % EOS % (test code = 713-8) 1.1 % BASO % (test code = 706-2) 0.4 % GRAN MAT x10^3(ANC) (test code = 6805840387) 2.63 10*3/uL 1.99-6.95 IMM GRAN x10^3 (test code = 6768157902) 0.00-0.06 LYMPH x10^3 (test code = 731-0) 3.68 10*3/uL 1.09-3.23 H MONO x10^3 (test code = 742-7) 0.54 10*3/uL 0.36-1.02 EOS x10^3 (test code = 711-2) 0.08 10*3/uL 0.06-0.53 BASO x10^3 (test code = 704-7) 0.03 10*3/uL 0.01-0.09 Lab Interpretation (test code = 75802-7) Abnormal [facility] [id number] 17:24:34* Test Item Value Reference Range Interpretation Comme nts TROPONIN I (test code = 7301905791) 0.018 ng/mL <=0.034 KRYSTLE (test code = [...] of biotin. Lab Interpretation (test code = 62424-7) Normal [facility]2023-11-11 17:13:15* Test Item Value Reference Range Interpretation Comme nts MAGNESIUM (test code = 5499840359) 1.9 mg/dL 1.7-2.4 Lab Interpretation (test cod e = 97589-0) Normal [facility]OL[facility] (00656)2023-07-25 17:12:55* Test Item Value Reference Range Interpretation Comme nts NA (test code = 1268755302) 141 mmol/L 135-145 K (test code = 0666612178) 3.8 mmol/L 3.5-5.0 CL (test code = 9118877409) 106 mmol/L 98-108 CO2 TOTAL (test code = 6238013252) 27 mmol/L 23-31 AGAP (test code = 2160511953) 8 2-16 BUN (test code = 1146908496) 14 mg/dL 7-23 GLUCOSE (test code = 0017541079) 124 mg/dL 70-110 H CREATININE (test code = 7466071420) 0.93 mg/dL 0.60-1.25 TOTAL BILI (test code = 2852402894) 0.8 mg/dL 0.1-1.1 CALCIUM (test code = 2931204752) 9.3 mg/dL 8.6-10.6 T PROTEIN (test code = 1413583357) 8.2 g/dL 6.3-8.2 ALBUMIN (test code = 8000835054) 4.4 g/dL 3.5-5.0 ALK PHOS (test code = 0596142955) 49 U/L 34-122 ALTv (test code = 1742-6) 20 U/L 5-50 AST(SGOT) (test code = 2445269843) 28 U/L 13-40 eGFR (test code = 10171-4) 100.0 mL/min/1.73m2 CKD-EPI eGFR (2020). Assuming creatinine has been stable day-to-day for at least three months, the eGFR indicates Category G1 (>= 90 mL/min/1.73 m2) Lab Interpretation (test code = 24570-0) [facility]normal [facility]2023-[facility]-11 17:12:35* Test Item Value Reference Range Interpretation Comme nts LIPASE (test code = 5151880698) 109 U/L 0-220 Lab Interpretation (test cod e = 85604-1) Normal [facility] WITH MFFL2073-21-92 16:59:59* Test Item Value Reference Range Interpretation Comme nts WBC (test code = 6690-2) 5.17 See_Comment [Automated AIRTAMEa ge] The system which generated this result [...] g/dL 31.2-35.0 H RDW-SD (test code = 01416-1) 39.2 fL 38.5-51.6 RDW-CV (test code = 788-0) 12.5 % 12.1-15.4 PLT (test code = 777-3) 207 See_Comment [Automated AIRTAMEa ge] The system which generated this result transmitted reference range: 150 - 328 10*3/?L. The reference range was not used to interpret this result as normal/abnormal. MPV (test code = 35371-6) 10.0 fL 9.8-13.0 NRBC/100 WBC (test code = 5864199125) 0.0 See_Comment [Automated me ssage] The system which generated this result transmitted reference range: 0.0 - 10.0 /100 WBCs. The reference range was not used to interpret this result as normal/abnormal. NRBC x10^3 (test code = 7651132982) See_Comment [Automated messa ge] The system which generated this result transmitted reference range: 10*3/?L. The reference range was not used to interpret this result as normal/abnormal. GRAN MAT (NEUT) % (test code = 770-8) 45.8 % IMM GRAN % (test code = 7721262527) 0.20 % LYMPH % (test code = 736-9) 42.9 % MONO % (test code = 5905-5) 9.9 % EOS % (test code = 713-8) 0.8 % BASO % (test code = 706-2) 0.4 % GRAN MAT x10^3(ANC) (test code = 1716306276) 2.37 10*3/uL 1.99-6.95 IMM GRAN x10^3 (test code = 6468854366) 0.00-0.06 LYMPH x10^3 (test code = 731-0) 2.22 10*3/uL 1.09-3.23 MONO x10^3 (test code = 742-7) 0.51 10*3/uL 0.36-1.02 EOS x10^3 (test code = 711-2) 0.04 10*3/uL 0.06-0.53 L BASO x10^3 (test code = 704-7) 0.01-0.09 Lab Interpretation (test code = 05677-1) [facility]normal [facility]neyLIPID PAN[facility] (27849)(TOTAL CHOLESTEROL, TRIGLYCERIDES, HDL)2023-07-24 21:48:18* Test Item Value Reference Range Interpretation Comme nts CHOL (test code = 4064632708) 220 mg/dL 120-200 H HDL (test code = 5227035071) 31 mg/dL >=40 L HDLC RATIO (test code = 0958487560) 7.1 <=5.0 H TRIG (test code = 2714601831) 134 mg/dL 30-170 LDL CHOL (test code = 75958-7) 162 mg/dL <=160 H VLDL (test code = 1588373489) 27 mg/dL 5-60 Lab Interpretation (test cod e = 66927-9) [facility]normal [facility] Metabolic Ocatf5450-17-72 20:48:07* Test Item Value Reference Range Interpretation Comme nts NA (test code = 6569123971) 141 mmol/L 135-145 K (test code = 3882966997) 3.8 mmol/L 3.5-5.0 CL (test code = 0683236715) 103 mmol/L 98-108 CO2 TOTAL (test code = 9561662345) 29 mmol/L 23-31 AGAP (test code = 1549172271) 9 2-16 BUN (test code = 5316999801) 14 mg/dL 7-23 GLUCOSE (test code = 1460816490) 102 mg/dL 70-110 CREATININE (test code = 4628786110) 0.85 mg/dL 0.60-1.25 TOTAL BILI (test code = 8322066759) 1.2 mg/dL 0.1-1.1 H CALCIUM (test code = 1059533226) 10.0 mg/dL 8.6-10.6 T PROTEIN (test code = 0858839185) 8.9 g/dL 6.3-8.2 H ALBUMIN (test code = 7115519043) 5.0 g/dL 3.5-5.0 ALK PHOS (test code = 7394663226) 52 U/L 34-122 ALTv (test code = 1742-6) 22 U/L 5-50 AST(SGOT) (test code = 4264296909) 45 U/L 13-40 H eGFR (test code = 54893-1) 105.9 mL/min/1.73m2 CKD-EPI eGFR (2020). Assuming creatinine has been stable day-to-day for at least three months, the eGFR indicates Category G1 (>= 90 mL/min/1.73 m2) Lab Interpretation (test code = 58418-2) [facility]normal [facility]ney[facility], Ewcke4771-99-40 20:48:07* Test Item Value Reference Range Interpretation Comme nts LIPASE (test code = 5423319280) 134 U/L 0-220 Lab Interpretation (test cod e = 89206-1) Normal [facility] with Pruxdnygqdvh4597-10-88 20:20:02* Test Item Value Reference Range Interpretation Comme nts WBC (test code = 6690-2) 6.91 See_Comment [Automated AIRTAMEa ge] The system which generated this result transmitted reference range: 4.20 - 10.70 10*3/?L. The reference range was not used to interpret this result as normal/abnormal. RBC (test code = 789-8) 5.49 See_Comment [Automated AIRTAMEa ge] The system which generated this result [...] 34.7 g/dL 31.2-35.0 RDW-SD (test code = 29718-6) 40.0 fL 38.5-51.6 RDW-CV (test code = 788-0) 12.7 % 12.1-15.4 PLT (test code = 777-3) 228 See_Comment [Automated AIRTAMEa ge] The system which generated this result transmitted reference range: 150 - 328 10*3/?L. The reference range was not used to interpret this result as normal/abnormal. MPV (test code = 44469-7) 9.5 fL 9.8-13.0 L NRBC/100 WBC (test code = 1764012330) 0.0 See_Comment [Automated Cat Amania ssage] The system which generated this result transmitted reference range: 0.0 - 10.0 /100 WBCs. The reference range was not used to interpret this result as normal/abnormal. NRBC x10^3 (test code = 9223560696) See_Comment [Automated messa ge] The system which generated this result transmitted reference range: 10*3/?L. The reference range was not used to interpret this result as normal/abnormal. GRAN MAT (NEUT) % (test code = 770-8) 46.9 % IMM GRAN % (test code = 2127465181) 0.30 % LYMPH % (test code = 736-9) 42.3 % MONO % (test code = 5905-5) 9.8 % EOS % (test code = 713-8) 0.4 % BASO % (test code = 706-2) 0.3 % GRAN MAT x10^3(ANC) (test code = 6174917642) 3.24 10*3/uL 1.99-6.95 IMM GRAN x10^3 (test code = 6579652782) 0.00-0.06 LYMPH x10^3 (test code = 731-0) 2.92 10*3/uL 1.09-3.23 MONO x10^3 (test code = 742-7) 0.68 10*3/uL 0.36-1.02 EOS x10^3 (test code = 711-2) 0.03 10*3/uL 0.06-0.53 L BASO x10^3 (test code = 704-7) 0.01-0.09 Lab Interpretation (test code = 68590-1) Abnormal [facility] PELVIS W/ZFPT4900-54-38 08:28:00 [facility] 1970 Sex: M PatientName: NOAH PUTNAM Unit No: [id number] EXAMS: CPT CODE: [id number] CT ABD PELVIS W/CONT 48718 EXAM: - CT ABD PELVIS W/CONT INDICATION: [...] extraluminal fluid. IMPRESSION: 1. No acute abnormality. [facility] NAME: NOAH PUTNAM [id number] PHYS: [place] [address] : 1970 AGE: 52 SEX: M LOC: [facility] PHONE #: [phone] EXAM DATE: 07/23/2023 STATUS: REG ER FAX #: [phone] RAD #: D/C DT PAGE 1 Signed Report (CONTINUED) Patient Name: NOAH PUTNAM Unit No: [id number] EXAMS: CPT CODE: [id number] CT ABD PELVIS W/CONT 95109 (Continued) at 0828 Reported and signedby: Kiara Meza MD CC: Jessie Paul MD Technologist: Jovanni GREEN CTDI: DLP: Trnscrpt: 07/23/2023 (827) ValerioCB5 [facility] NAME: NOAH PUTNAM [address] PHYS: [place] [address] : 1970 AGE: 52 SEX: M LOC: [facility] PHONE #: [phone] EXAM DATE: 07/23/2023 STATUS: REG ER FAX #: [phone] RAD #: D/C DT PAGE 2 Signed Report Patient Name: NOAH PUTNAM Unit No: [id number] EXAMS: CPT CODE: [id number] CT ABD PELVIS W/CONT 43757 (Continued) Orig Print D/T: S: 07/23/2023 (830) [facility] Ji NAME: NOAH PUTNAM [address] PHYS: [place] [address] : 1970 AGE: 52 SEX: M LOC: [facility] PHONE #: [phone] EXAM DATE: 07/23/2023 STATUS: REG ER FAX #: [phone] RAD #: D/C DT PAGE 3 Signed ReportURINALYSIS [id number] 06:32:00* Test Item Value Reference Range Interpretation [...] /mm3 NEGATIVE SOURCE OF URINE: CLEAN CATCHUA LWPJGMGNXDW2071-49-91 06:32:00* Test Item Value Reference Range Interpretation Comme nts UA RBC (test code = RBCU) 3-5 RBC/HPF 0-3 A UA WBC (test code = XWBCU) 0-3 WBC/HPF 0-5 UA EPITHELIAL CELLS (test co de = EPIU) RARE EPI/HPF FEW UA BACTERIA (test code = XBACU) FEW NONE UA MUCUS (test code = MUCU) MODERATE #/LPF NONE A SOURCE OF URINE: CLEAN CATCHBASIC METABOLIC [id number] 06:31:00* Test Item Value Reference Range Interpretation [...] calculation forGFR is based on the CKD-EPI (2021) calculation. This formulais race indifferent and is the recommended formula for GFRby the National Kidney Foundation for Adults.The GFR will not calculate if the sex is unknown or if thepatient's age is <18 years. CREATININE (test code = CREAT) 1.20 MG/DL 0.66-1.25 N CALCIUM (test code = CA) 9.5 MG/DL 8.4-10.2 N HEPATIC FUNCTION [id number] 06:31:00* Test Item Value Reference Range Interpretation [...] code = ALKP) 57 UNITS/L 38-126 N [id number] 06:31:00* Test Item Value Reference Range Interpretation [facility] (test code = LIP) 94 UNITS/L 23-300 N [id number] 06:31:00* Test Item Value Reference Range Interpretation [facility] TROPONIN-I (test code = TROPI) 0.019 NG/ML 0.012-0.033 N PROTHROMBIN [id number] 06:07:00* Test Item Value Reference Range Interpretation Comme [facility] PROTHROMBIN TIME PATIENT (test code = PTP) [...] systemic embolism. 3.0 - 4.5 CBC W/O [id number] 06:00:00* Test Item Value Reference Range Interpretation Comme [facility] WHITE BLOOD CELL (test code = WBC) [...] = NRBC#) 0.00 K/mm3 0.0-0.1 N Troponin [id number] 02:46:51* Test Item Value Reference Range Interpretation Comme nts TROPONIN I (test code = 1474915021) 0.017 ng/mL <=0.034 KRYSTLE (test code = [...] of biotin. Lab Interpretation (test code = 86475-8) [facility]ney[facility]MP2023-[facility]-29 02:35:28* Test Item Value Reference Range Interpretation Comme nts NA (test code = 6453683411) 138 mmol/L 135-145 K (test code = 1819660991) 3.7 mmol/L 3.5-5.0 CL (test code = 0648731531) 106 mmol/L 98-108 CO2 TOTAL (test code = 6174535989) 24 mmol/L 23-31 AGAP (test code = 5696295880) 8 2-16 BUN (test code = 2311387511) 11 mg/dL 7-23 GLUCOSE (test code = 7281020775) 165 mg/dL 70-110 H CREATININE (test code = 5486280256) 0.89 mg/dL 0.60-1.25 TOTAL BILI (test code = 8580188910) 0.2 mg/dL 0.1-1.1 CALCIUM (test code = 4033438315) 9.3 mg/dL 8.6-10.6 T PROTEIN (test code = 2751117126) 7.0 g/dL 6.3-8.2 ALBUMIN (test code = 4499134113) 4.0 g/dL 3.5-5.0 ALK PHOS (test code = 8479646858) 59 U/L 34-122 ALTv (test code = 1742-6) 23 U/L 5-50 AST(SGOT) (test code = 4715811209) 27 U/L 13-40 eGFR (test code = 7251683941) 90.5 mL/min/1.73m2 KRYSTLE (test code = KRYSTLE) [...] imaging tests). Lab Interpretation (test code = 39068-9) Abnormal [facility] with Zyty5322-28-37 02:26:10* Test Item Value Reference Range Interpretation Comme nts WBC (test code = 6690-2) 5.78 See_Comment [Automated A[employer] Custom [employer]oup] The system which generated this result transmitted reference range: 4.20 - 10.70 10*3/?L. The reference range was not used to interpret this result as normal/abnormal. RBC (test code = 789-8) 4.59 See_Comment [Automated [employer]] The system which generated this result transmitted [...] g/dL 31.2-35.0 H RDW-SD (test code = 02018-9) 38.6 fL 38.5-51.6 RDW-CV (test code = 788-0) 12.6 % 12.1-15.4 PLT (test code = 777-3) 200 See_Comment [Automated [employer]] The system which generated this result transmitted reference range: 150 - 328 10*3/?L. The reference range was not used to interpret this result as normal/abnormal. MPV (test code = 33167-9) 9.6 fL 9.8-13.0 L NRBC/100 WBC (test code = 2833600201) 0.0 See_Comment [Automated me ssage] The system which generated this result transmitted reference range: 0.0 - 10.0 /100 WBCs. The reference range was not used to interpret this result as normal/abnormal. NRBC x10^3 (test code = 9473851368) See_Comment [Automated messa ge] The system which generated this result transmitted reference range: 10*3/?L. The reference range was not used to interpret this result as normal/abnormal. GRAN MAT (NEUT) % (test code = 770-8) 36.8 % IMM GRAN % (test code = 3404343623) 0.20 % LYMPH % (test code = 736-9) 54.7 % MONO % (test code = 5905-5) 7.1 % EOS % (test code = 713-8) 0.9 % BASO % (test code = 706-2) 0.3 % GRAN MAT x10^3(ANC) (test code = 0223308154) 2.13 10*3/uL 1.99-6.95 IMM GRAN x10^3 (test code = 0918956675) 0.00-0.06 LYMPH x10^3 (test code = 731-0) 3.16 10*3/uL 1.09-3.23 MONO x10^3 (test code = 742-7) 0.41 10*3/uL 0.36-1.02 EOS x10^3 (test code = 711-2) 0.05 10*3/uL 0.06-0.53 L BASO x10^3 (test code = 704-7) 0.01-0.09 Lab Interpretation (test code = 18685-0) [facility] (73127[facility]2023-[facility]-03 10:47:01* Test Item Value Reference Range Interpretation Comme nts NA (test code = 1488013188) 138 mmol/L 135-145 K (test code = 1992299183) 4.5 mmol/L 3.5-5.0 Slight hemolysis CL (test code = 1905331125) 103 mmol/L 98-108 CO2 TOTAL (test code = 1161983008) 23 mmol/L 23-31 AGAP (test code = 8512371009) 12 2-16 BUN (test code = 6563860858) 16 mg/dL 7-23 Slight hemolysis GLUCOSE (test code = 8054370504) 142 mg/dL 70-110 H CREATININE (test code = 6917331822) 0.99 mg/dL 0.60-1.25 TOTAL BILI (test code = 2520093768) 1.2 mg/dL 0.1-1.1 H CALCIUM (test code = 2916439608) 9.6 mg/dL 8.6-10.6 T PROTEIN (test code = 5698814916) 8.1 g/dL 6.3-8.2 ALBUMIN (test code = 3043658618) 4.6 g/dL 3.5-5.0 ALK PHOS (test code = 2292909414) 51 U/L 34-122 Slight hemolysis ALTv (test code = 1742-6) 26 U/L 5-50 AST(SGOT) (test code = 5340216655) 32 U/L 13-40 Slight hemolysis eGFR (test code = 0685625159) 80.0 mL/min/1.73m2 KRYSTLE (test code = KRYSTLE) [...] imaging tests). Lab Interpretation (test code = 84795-0) [facility] 10:47:01* Test Item Value Reference Range Interpretation Comme nts LIPASE (test code = 8965550322) 955 U/L 0-220 H Lab Interpretation (test cod e = 64367-9) [facility]normal [facility] WITH [id number] 10:27:34* Test Item Value Reference Range Interpretation Comme nts WBC (test code = 6690-2) 6.60 See_Comment [Automated [employer]] The system which generated this result transmitted reference range: 4.20 - 10.70 10*3/?L. The reference range was not used to interpret this result as normal/abnormal. RBC (test code = 789-8) 5.32 See_Comment [Automated [employer]] The system which generated this result transmitted [...] 34.5 g/dL 31.2-35.0 RDW-SD (test code = 07876-3) 39.4 fL 38.5-51.6 RDW-CV (test code = 788-0) 12.3 % 12.1-15.4 PLT (test code = 777-3) 226 See_Comment [Automated [employer]] The system which generated this result transmitted reference range: 150 - 328 10*3/?L. The reference range was not used to interpret this result as normal/abnormal. MPV (test code = 09216-3) 9.6 fL 9.8-13.0 L NRBC/100 WBC (test code = 8449221013) 0.0 See_Comment [Automated me ssage] The system which generated this result transmitted reference range: 0.0 - 10.0 /100 WBCs. The reference range was not used to interpret this result as normal/abnormal. NRBC x10^3 (test code = 9867505807) See_Comment [Automated messa ge] The system which generated this result transmitted reference range: 10*3/?L. The reference range was not used to interpret this result as normal/abnormal. GRAN MAT (NEUT) % (test code = 770-8) 54.9 % IMM GRAN % (test code = 2292488975) 0.20 % LYMPH % (test code = 736-9) 36.2 % MONO % (test code = 5905-5) 7.9 % EOS % (test code = 713-8) 0.5 % BASO % (test code = 706-2) 0.3 % GRAN MAT x10^3(ANC) (test code = 5520561100) 3.63 10*3/uL 1.99-6.95 IMM GRAN x10^3 (test code = 9012609272) 0.00-0.06 LYMPH x10^3 (test code = 731-0) 2.39 10*3/uL 1.09-3.23 MONO x10^3 (test code = 742-7) 0.52 10*3/uL 0.36-1.02 EOS x10^3 (test code = 711-2) 0.03 10*3/uL 0.06-0.53 L BASO x10^3 (test code = 704-7) 0.01-0.09 Lab Interpretation (test code = 37544-4) Abnormal [facility] ABD PELVIS [id number] 00:06:00 [facility] : 1970 Sex: M Patient Name: NOAH PUTNAM Unit No: [id number] EXAMS: CPT CODE: [id number] CT ABD PELVIS W/CONT 93792 Reason: diffuse abd pain CT Scan of [...] Electronically Signed by Jennifer Bass MD on at 0006 Reported and signed by: Jennifer Bass MD CC: Jessie Gleason DO; [facility] Technologist: Cory SCHOFIELD Trscrpt Dt/ ([id number].[id number] Orig Print D/T: S: 07/02/2023 (0009) CTDI: DLP: [place] FSED NAME: NOAH PUTNAM [facility] [address] [place] [address] PHYS: [email or web address] - Jessie Gleason [address] : 1970 AGE: 52 SEX: M [place], [place] [address] LOC: D.PER PHONE #: [phone] EXAM DATE: 07/01/2023 STATUS: REG ER FAX #: RAD NO: DCDt: PAGE 1 Signed ReportTROP-I HIGH [id number] 23:55:00* Test Item Value Reference Range Interpretation [...] troponin from other clinical conditions, the Fourth [place] Definition of Myocardial Infarction stresses clinical assessment and demonstration of a rise and/or fall in serial troponin results above the upper reference limit.Results of this assay method may be falsely depressed orelevated if patient is taking high doses of Biotin. BASIC METABOLIC [id number] 23:55:00* Test Item Value Reference Range Interpretation [...] CA) 9.3 MG/DL 8.7-10.5 N HEPATIC FUNCTION [id number] 23:55:00* Test Item Value Reference Range Interpretation [...] code = ALKP) 60 Units/L 50-136 N [id number] 23:55:00* Test Item Value Reference Range Interpretation Comme nts LIPASE (test code = LIP) 259 U/L 16-77 H New Reference Ranges of 16-77 U/L please reviewrevised from 73-393 U/L on 06/30/2023 CBC W/AUTO [id number] 23:24:00* Test Item Value Reference Range Interpretation [...] = BA#) 0.02 x10 3/uL 0.0-0.2 N [id number] 12:29:00* Test Item Value Reference Range Interpretation Comme nts LIPASE (test code = LIP) 73 Units/L 73-393 N [id number] 17:24:56* Test Item Value Reference Range Interpretation Comme nts LIPASE (test code = 9826053579) 283 U/L 0-220 H Lab Interpretation (test cod e = 09985-0) [facility] (NA, K, CL, CO2, GLUCOSE, BUN, CREATININE, CA)2023-04-22 17:24:35* Test Item Value Reference Range Interpretation Comme nts NA (test code = 3696238673) 139 mmol/L 135-145 K (test code = 1237784249) 4.0 mmol/L 3.5-5.0 CL (test code = 1610114832) 106 mmol/L 98-108 CO2 TOTAL (test code = 5415742121) 25 mmol/L 23-31 AGAP (test code = 4876943165) 8 2-16 BUN (test code = 0843482565) 21 mg/dL 7-23 GLUCOSE (test code = 3861207159) 110 mg/dL 70-110 CREATININE (test code = 6250403516) 1.06 mg/dL 0.60-1.25 CALCIUM (test code = 4551850608) 8.1 mg/dL 8.6-10.6 L eGFR (test code = 2697535926) 74.0 mL/min/1.73m2 KRYSTLE (test code = KRYSTLE) [...] imaging tests). Lab Interpretation (test code = 70392-1) [facility] [id number] 13:57:28* Test Item Value Reference Range Interpretation Comme nts CK (test code = 4296159201) 635 U/L 33-194 H Lab Interpretation (test cod e = 10282-0) [facility] (NA, K, CL, CO2, GLUCOSE, BUN, CREATININE, CA)2023-04-22 13:23:02* Test Item Value Reference Range Interpretation Comme nts NA (test code = 0220918791) 141 mmol/L 135-145 K (test code = 2126599393) 4.0 mmol/L 3.5-5.0 CL (test code = 0539835540) 107 mmol/L 98-108 CO2 TOTAL (test code = 2130132557) 27 mmol/L 23-31 AGAP (test code = 4089186636) 7 2-16 BUN (test code = 8228074564) 22 mg/dL 7-23 GLUCOSE (test code = 6837949652) 94 mg/dL 70-110 CREATININE (test code = 2981776595) 1.26 mg/dL 0.60-1.25 H CALCIUM (test code = 8356800808) 8.3 mg/dL 8.6-10.6 L eGFR (test code = 1765747504) 60.6 mL/min/1.73m2 KRYSTLE (test code = KRYSTLE) [...] imaging tests). Lab Interpretation (test code = 11284-3) [facility] 13:22:41* Test Item Value Reference Range Interpretation Comme nts LIPASE (test code = 9935821865) 897 U/L 0-220 H Lab Interpretation (test cod e = 76742-8) [facility] (47229)2023-04-22 09:43:42* Test Item Value Reference Range Interpretation Comme nts NA (test code = 0876441543) 140 mmol/L 135-145 K (test code = 3431349001) 3.7 mmol/L 3.5-5.0 CL (test code = 0303885578) 103 mmol/L 98-108 CO2 TOTAL (test code = 8353417992) 24 mmol/L 23-31 AGAP (test code = 3219893058) 13 2-16 BUN (test code = 8159172501) 24 mg/dL 7-23 H GLUCOSE (test code = 5378619744) 114 mg/dL 70-110 H CREATININE (test code = 9569707398) 1.42 mg/dL 0.60-1.25 H TOTAL BILI (test code = 8213470539) 0.9 mg/dL 0.1-1.1 CALCIUM (test code = 5171186988) 9.5 mg/dL 8.6-10.6 T PROTEIN (test code = 0516426877) 9.2 g/dL 6.3-8.2 H ALBUMIN (test code = 2042638311) 4.9 g/dL 3.5-5.0 ALK PHOS (test code = 3517132161) 66 U/L 34-122 ALTv (test code = 1742-6) 25 U/L 5-50 AST(SGOT) (test code = 8005768997) 37 U/L 13-40 eGFR (test code = 1136906707) 52.8 mL/min/1.73m2 KRYSTLE (test code = KRYSTLE) [...] imaging tests). Lab Interpretation (test code = 86351-3) Abnormal [facility] WITH [id number] 09:33:37* Test Item Value Reference Range Interpretation Comme nts WBC (test code = 6690-2) 8.53 See_Comment [Automated messa ge] The system which generated this result transmitted reference range: 4.20 - 10.70 10*3/?L. The reference range was not used to interpret this result as normal/abnormal. RBC (test code = 789-8) 5.60 See_Comment H [Automated messa ge] The system [...] g/dL 31.2-35.0 H RDW-SD (test code = 63124-8) 40.1 fL 38.5-51.6 RDW-CV (test code = 788-0) 13.0 % 12.1-15.4 PLT (test code = 777-3) 267 See_Comment [Automated messa ge] The system which generated this result transmitted reference range: 150 - 328 10*3/?L. The reference range was not used to interpret this result as normal/abnormal. MPV (test code = 07747-9) 9.6 fL 9.8-13.0 L NRBC/100 WBC (test code = 9702872882) 0.0 See_Comment [Automated Cat Amania ssage] The system which generated this result transmitted reference range: 0.0 - 10.0 /100 WBCs. The reference range was not used to interpret this result as normal/abnormal. NRBC x10^3 (test code = 0937955038) See_Comment [Automated messa ge] The system which generated this result transmitted reference range: 10*3/?L. The reference range was not used to interpret this result as normal/abnormal. GRAN MAT (NEUT) % (test code = 770-8) 44.5 % IMM GRAN % (test code = 7887153048) 0.20 % LYMPH % (test code = 736-9) 43.4 % MONO % (test code = 5905-5) 10.7 % EOS % (test code = 713-8) 0.8 % BASO % (test code = 706-2) 0.4 % GRAN MAT x10^3(ANC) (test code = 0759936820) 3.80 10*3/uL 1.99-6.95 IMM GRAN x10^3 (test code = 2320032836) 0.00-0.06 LYMPH x10^3 (test code = 731-0) 3.70 10*3/uL 1.09-3.23 H MONO x10^3 (test code = 742-7) 0.91 10*3/uL 0.36-1.02 EOS x10^3 (test code = 711-2) 0.07 10*3/uL 0.06-0.53 BASO x10^3 (test code = 704-7) 0.03 10*3/uL 0.01-0.09 Lab Interpretation (test code = 44198-9) Abnormal [facility] [id number] 13:23:31* Test Item Value Reference Range Interpretation Comme nts TROPONIN I (test code = 8598790544) 0.020 ng/mL <=0.034 KRYSTLE (test code = [...] of biotin. Lab Interpretation (test code = 65777-1) Normal [facility] [id number] 13:23:31* Test Item Value Reference Range Interpretation Comme nts TROPONIN I (test code = 5348682951) 0.020 ng/mL <=0.034 KRYSTLE (test code = [...] of biotin. Lab Interpretation (test code = 88778-6) Normal [facility] METABOLIC PANEL (78928)2023-04-16 12:58:04* Test Item Value Reference Range Interpretation Comme nts NA (test code = 8686588259) 142 mmol/L 135-145 K (test code = 6939046865) 4.0 mmol/L 3.5-5.0 CL (test code = 0026352936) 105 mmol/L 98-108 CO2 TOTAL (test code = 2899082003) 28 mmol/L 23-31 AGAP (test code = 4963192425) 9 2-16 BUN (test code = 1703836489) 11 mg/dL 7-23 GLUCOSE (test code = 4252285223) 115 mg/dL 70-110 H CREATININE (test code = 0427637919) 0.85 mg/dL 0.60-1.25 TOTAL BILI (test code = 4147361298) 0.4 mg/dL 0.1-1.1 CALCIUM (test code = 4391268034) 9.2 mg/dL 8.6-10.6 T PROTEIN (test code = 7550577239) 7.6 g/dL 6.3-8.2 ALBUMIN (test code = 4283553288) 4.4 g/dL 3.5-5.0 ALK PHOS (test code = 0492233794) 52 U/L 34-122 ALTv (test code = 1742-6) 23 U/L 5-50 AST(SGOT) (test code = 8634175065) 33 U/L 13-40 eGFR (test code = 8825644462) 95.4 mL/min/1.73m2 KRYSTLE (test code = KRYSTLE) [...] imaging tests). Lab Interpretation (test code = 93135-2) [facility] 12:58:04* Test Item Value Reference Range Interpretation Comme nts LIPASE (test code = 2143265596) 492 U/L 0-220 H Lab Interpretation (test cod e = 82670-8) [facility] (80475)2023-04-16 12:58:04* Test Item Value Reference Range Interpretation Comme nts NA (test code = 1108791583) 142 mmol/L 135-145 K (test code = 2637563905) 4.0 mmol/L 3.5-5.0 CL (test code = 3696998283) 105 mmol/L 98-108 CO2 TOTAL (test code = 2616504271) 28 mmol/L 23-31 AGAP (test code = 8712326913) 9 2-16 BUN (test code = 8751268480) 11 mg/dL 7-23 GLUCOSE (test code = 6751283424) 115 mg/dL 70-110 H CREATININE (test code = 9123159158) 0.85 mg/dL 0.60-1.25 TOTAL BILI (test code = 4960835985) 0.4 mg/dL 0.1-1.1 CALCIUM (test code = 7962748379) 9.2 mg/dL 8.6-10.6 T PROTEIN (test code = 8793013452) 7.6 g/dL 6.3-8.2 ALBUMIN (test code = 7206700313) 4.4 g/dL 3.5-5.0 ALK PHOS (test code = 7322251189) 52 U/L 34-122 ALTv (test code = 1742-6) 23 U/L 5-50 AST(SGOT) (test code = 5197145820) 33 U/L 13-40 eGFR (test code = 7096755987) 95.4 mL/min/1.73m2 KRYSTLE (test code = KRYSTLE) [...] imaging tests). Lab Interpretation (test code = 84607-2) [facility] 12:58:04* Test Item Value Reference Range Interpretation Comme nts LIPASE (test code = 0404672750) 492 U/L 0-220 H Lab Interpretation (test cod e = 41667-3) [facility] WITH [id number] 12:50:01* Test Item Value Reference Range Interpretation Comme nts WBC (test code = 6690-2) 6.75 See_Comment [Automated [employer]] The system which generated this result transmitted reference range: 4.20 - 10.70 10*3/?L. The reference range was not used to interpret this result as normal/abnormal. RBC (test code = 789-8) 5.08 See_Comment [Automated [employer]] The system which generated this result transmitted [...] 34.9 g/dL 31.2-35.0 RDW-SD (test code = 80713-5) 41.4 fL 38.5-51.6 RDW-CV (test code = 788-0) 13.2 % 12.1-15.4 PLT (test code = 777-3) 219 See_Comment [Automated [employer]] The system which generated this result transmitted reference range: 150 - 328 10*3/?L. The reference range was not used to interpret this result as normal/abnormal. MPV (test code = 55300-4) 9.5 fL 9.8-13.0 L NRBC/100 WBC (test code = 7284934035) 0.0 See_Comment [Automated me ssage] The system which generated this result transmitted reference range: 0.0 - 10.0 /100 WBCs. The reference range was not used to interpret this result as normal/abnormal. NRBC x10^3 (test code = 5968479333) See_Comment [Automated messa ge] The system which generated this result transmitted reference range: 10*3/?L. The reference range was not used to interpret this result as normal/abnormal. GRAN MAT (NEUT) % (test code = 770-8) 46.9 % IMM GRAN % (test code = 3551963847) 0.10 % LYMPH % (test code = 736-9) 43.4 % MONO % (test code = 5905-5) 8.4 % EOS % (test code = 713-8) 0.9 % BASO % (test code = 706-2) 0.3 % GRAN MAT x10^3(ANC) (test code = 4747268469) 3.16 10*3/uL 1.99-6.95 IMM GRAN x10^3 (test code = 6999556005) 0.00-0.06 LYMPH x10^3 (test code = 731-0) 2.93 10*3/uL 1.09-3.23 MONO x10^3 (test code = 742-7) 0.57 10*3/uL 0.36-1.02 EOS x10^3 (test code = 711-2) 0.06 10*3/uL 0.06-0.53 BASO x10^3 (test code = 704-7) 0.01-0.09 Lab Interpretation (test code = 37541-8) Abnormal [facility] WITH [id number] 12:50:01* Test Item Value Reference Range Interpretation [...] 34.9 g/dL 31.2-35.0 RDW-SD (test code = 92105-0) 41.4 fL 38.5-51.6 RDW-CV (test code = 788-0) 13.2 % 12.1-15.4 PLT (test code = 777-3) 219 See_Comment [Automated messa ge] The system which generated this result transmitted reference range: 150 - 328 10*3/?L. The reference range was not used to interpret this result as normal/abnormal. MPV (test code = 08640-2) 9.5 fL 9.8-13.0 L NRBC/100 WBC (test code = 6243286417) 0.0 See_Comment [Automated Cat Amania ssage] The system which generated this result transmitted reference range: 0.0 - 10.0 /100 WBCs. The reference range was not used to interpret this result as normal/abnormal. NRBC x10^3 (test code = 8374577357) See_Comment [Automated messa ge] The system which generated this result transmitted reference range: 10*3/?L. The reference range was not used to interpret this result as normal/abnormal. GRAN MAT (NEUT) % (test code = 770-8) 46.9 % IMM GRAN % (test code = 9543728360) 0.10 % LYMPH % (test code = 736-9) 43.4 % MONO % (test code = 5905-5) 8.4 % EOS % (test code = 713-8) 0.9 % BASO % (test code = 706-2) 0.3 % GRAN MAT x10^3(ANC) (test code = 8139293257) 3.16 10*3/uL 1.99-6.95 IMM GRAN x10^3 (test code = 5715199182) 0.00-0.06 LYMPH x10^3 (test code = 731-0) 2.93 10*3/uL 1.09-3.23 MONO x10^3 (test code = 742-7) 0.57 10*3/uL 0.36-1.02 EOS x10^3 (test code = 711-2) 0.06 10*3/uL 0.06-0.53 BASO x10^3 (test code = 704-7) 0.01-0.09 Lab Interpretation (test code = 36091-6) [facility]2023-02-13 21:02:35* Test Item Value Reference Range Interpretation Comme [facility] POCT GLU (test code = 6335980257) 118 mg/dL 70-110 H Lab Interpretation (test cod e = 56699-1) Abnormal [facility] WITH [id number] 05:51:48* Test Item Value Reference Range Interpretation Comme [facility] WBC (test code = 6690-2) 7.64 See_Comment [Automated AIRTAMEa ge] The system which generated this result [...] 34.4 g/dL 31.2-35.0 RDW-SD (test code = 44678-1) 38.5 fL 38.5-51.6 RDW-CV (test code = 788-0) 12.5 % 12.1-15.4 PLT (test code = 777-3) 216 See_Comment [Automated AIRTAMEa ge] The system which generated this result transmitted reference range: 150 - 328 10*3/?L. The reference range was not used to interpret this result as normal/abnormal. MPV (test code = 95502-6) 10.0 fL 9.8-13.0 NRBC/100 WBC (test code = 5194863843) 0.0 See_Comment [Automated Cat Amania ssage] The system which generated this result transmitted reference range: 0.0 - 10.0 /100 WBCs. The reference range was not used to interpret this result as normal/abnormal. NRBC x10^3 (test code = 3181344754) See_Comment [Automated AIRTAMEa ge] The system which generated this result transmitted reference range: 10*3/?L. The reference range was not used to interpret this result as normal/abnormal. SEG % (test code = 11097-8) 36 % 33-76 LYMPH % (test code = 71634-1) 48 % 14-54 MONO % (test code = 60551-5) 13 % 0-4 H EOS % (test code = 98945-2) 3 % 0-3 ANC (test code = 753-4) 2.75 10*3/uL 1.99-6.95 Lab Interpretation (test code = 73427-7) [facility] (01220)2022-12-09 05:24:19* Test Item Value Reference Range Interpretation Comme nts NA (test code = 2155398358) 139 mmol/L 135-145 K (test code = 7019113634) 3.8 mmol/L 3.5-5.0 CL (test code = 1203807395) 105 mmol/L 98-108 CO2 TOTAL (test code = 8652373510) 24 mmol/L 23-31 AGAP (test code = 4945590744) 10 2-16 BUN (test code = 6810363565) 11 mg/dL 7-23 GLUCOSE (test code = 3684217290) 115 mg/dL 70-110 H CREATININE (test code = 4453071728) 0.93 mg/dL 0.60-1.25 TOTAL BILI (test code = 8408067735) 0.8 mg/dL 0.1-1.1 CALCIUM (test code = 7988853598) 9.3 mg/dL 8.6-10.6 T PROTEIN (test code = 5185672196) 8.0 g/dL 6.3-8.2 ALBUMIN (test code = 5863572366) 4.5 g/dL 3.5-5.0 ALK PHOS (test code = 2736516296) 50 U/L 34-122 ALTv (test code = 1742-6) 22 U/L 5-50 AST(SGOT) (test code = 1300307354) 36 U/L 13-40 eGFR (test code = 5376412315) 86.0 mL/min/1.73m2 KRYSTLE (test code = KRYSTLE) [...] imaging tests). Lab Interpretation (test code = 33561-2) [facility] 05:24:18* Test Item Value Reference Range Interpretation Comme nts LIPASE (test code = 5641890215) 271 U/L 0-220 H Lab Interpretation (test cod e = 78144-2) [facility] with [id number] 22:09:52* Test Item Value Reference Range Interpretation Comme nts WBC (test code = 6690-2) See_Comment [Automated [employer]] The system which generated this result transmitted reference range: 4.20 - 10.70 10*3/?L. The reference range was not used to interpret this result as normal/abnormal. RBC (test code = 789-8) See_Comment [Automated [employer]] The system which generated this result transmitted [...] g/dL 31.2-35.0 H RDW-SD (test code = 22828-9) 39.2 fL 38.5-51.6 RDW-CV (test code = 788-0) 12.9 % 12.1-15.4 PLT (test code = 777-3) See_Comment [Automated [employer]] The system which generated this result transmitted reference range: 150 - 328 10*3/?L. The reference range was not used to interpret this result as normal/abnormal. MPV (test code = 03846-2) 9.0 fL 9.8-13.0 L NRBC/100 WBC (test code = 6742076592) See_Comment [Automated me ssage] The system which generated this result transmitted reference range: 0.0 - 10.0 /100 WBCs. The reference range was not used to interpret this result as normal/abnormal. NRBC x10^3 (test code = 4348201692) See_Comment [Automated messa ge] The system which generated this result transmitted reference range: 10*3/?L. The reference range was not used to interpret this result as normal/abnormal. GRAN MAT (NEUT) % (test code = 770-8) 35.3 % IMM GRAN % (test code = 6862557807) 0.00 % LYMPH % (test code = 736-9) 56.0 % MONO % (test code = 5905-5) 7.9 % EOS % (test code = 713-8) 0.4 % BASO % (test code = 706-2) 0.4 % GRAN MAT x10^3(ANC) (test code = 5172446802) 1.87 10*3/uL 1.99-6.95 L IMM GRAN x10^3 (test code = 5505205318) 0.00-0.06 LYMPH x10^3 (test code = 731-0) 2.97 10*3/uL 1.09-3.23 MONO x10^3 (test code = 742-7) 0.42 10*3/uL 0.36-1.02 EOS x10^3 (test code = 711-2) 0.06-0.53 L BASO x10^3 (test code = 704-7) 0.01-0.09 Lab Interpretation (test code = 04252-1) [facility] (NA, K, CL, CO2, GLUCOSE, BUN, CREATININE, CA)2022-10-12 00:25:13* Test Item Value Reference Range Interpretation Comme nts NA (test code = 2332018645) 136 mmol/L 135-145 K (test code = 3700564253) 3.5 mmol/L 3.5-5.0 CL (test code = 3489971897) 103 mmol/L 98-108 CO2 TOTAL (test code = 2207522213) 26 mmol/L 23-31 AGAP (test code = 4068472320) 2-16 BUN (test code = 3774734547) 14 mg/dL 7-23 GLUCOSE (test code = 2692229718) 157 mg/dL 70-110 H CREATININE (test code = 8537485479) 0.80 mg/dL 0.60-1.25 CALCIUM (test code = 9705691861) 8.4 mg/dL 8.6-10.6 L eGFR (test code = 3989406704) mL/min/1.73m2 KRYSTLE (test code = KRYSTLE) Association [...] imaging tests). Lab Interpretation (test code = 38517-9) [facility]normal [facility] (02842) (ALB,T.PRO,BILI T,BU/BC,ALT,AST,ALK PHOS)2022-10-12 00:25:13* Test Item Value Reference Range Interpretation Comme nts TOTAL BILI (test code = 2893241704) 1.2 mg/dL 0.1-1.1 H BILI UNCON (test code = 7226787116) 1.0 mg/dL 0.1-1.1 BILI CONJ (test code = 7907068251) 0.0 mg/dL 0.0-0.3 T PROTEIN (test code = 1416866218) 7.1 g/dL 6.3-8.2 ALBUMIN (test code = 0636546996) 4.0 g/dL 3.5-5.0 ALK PHOS (test code = 2290065888) 59 U/L 34-122 ALTv (test code = 1742-6) 38 U/L 5-50 AST(SGOT) (test code = 6973561340) 61 U/L 13-40 H Lab Interpretation (test cod e = 18054-9) [facility]normal [facility] Confirmation (Lab Only)2022-10-11 21:35:47* Test Item Value Reference Range Interpretation Comme nts ABO & RH (test code = 20) O Positive Performed at [facility] Laboratory Services - [facility] Blood [address] Free: [phone] No. [id number] [facility]neyType and Screen - ONCE [id number] 21:25:51* Test Item Value Reference Range Interpretation Comme nts ABO & RH (test code = 20) O POSITIVE Performed at [facility] Laboratory Services - [address] Free: [phone] No. [id number] IAT (test code = 1185) Negative Performed at [facility] Laboratory Services - [address] Free: [phone] No. [id number] [facility] WITH [id number] 20:47:43* Test Item Value Reference Range Interpretation [...] g/dL 31.2-35.0 H RDW-SD (test code = 93184-8) 41.1 fL 38.5-51.6 RDW-CV (test code = 788-0) 13.2 % 12.1-15.4 PLT (test code = 777-3) See_Comment [Automated AIRTAMEa ge] The system which generated this result transmitted reference range: 150 - 328 10*3/?L. The reference range was not used to interpret this result as normal/abnormal. MPV (test code = 75734-2) 9.5 fL 9.8-13.0 L NRBC/100 WBC (test code = 9387283262) See_Comment [Automated Cat Amania ssage] The system which generated this result transmitted reference range: 0.0 - 10.0 /100 WBCs. The reference range was not used to interpret this result as normal/abnormal. NRBC x10^3 (test code = 6438144574) See_Comment [Automated AIRTAMEa ge] The system which generated this result transmitted reference range: 10*3/?L. The reference range was not used to interpret this result as normal/abnormal. GRAN MAT (NEUT) % (test code = 770-8) 38.2 % IMM GRAN % (test code = 6693523160) 0.00 % LYMPH % (test code = 736-9) 53.7 % MONO % (test code = 5905-5) 7.5 % EOS % (test code = 713-8) 0.3 % BASO % (test code = 706-2) 0.3 % GRAN MAT x10^3(ANC) (test code = 3303963845) 2.46 10*3/uL 1.99-6.95 IMM GRAN x10^3 (test code = 9131940097) 0.00-0.06 LYMPH x10^3 (test code = 731-0) 3.46 10*3/uL 1.09-3.23 H MONO x10^3 (test code = 742-7) 0.48 10*3/uL 0.36-1.02 EOS x10^3 (test code = 711-2) 0.06-0.53 L BASO x10^3 (test code = 704-7) 0.01-0.09 Lab Interpretation (test code = 44392-7) [facility]neyLIPID PAN[facility] (12972)(TOTAL CHOLESTEROL, TRIGLYCERIDES, HDL)2022-10-11 20:32:44* Test Item Value Reference Range Interpretation Comme nts CHOL (test code = 7594710953) 195 mg/dL 120-200 HDL (test code = 2708379303) 36 mg/dL See_Comment L [Automated messa ge] The system which generated this result transmitted reference range: >=40. The reference range was not used to interpret this result as normal/abnormal. HDLC RATIO (test code = 4068864804) See_Comment H [Automated messa ge] The system which generated this result transmitted reference range: <=5.0. The reference range was not used to interpret this result as normal/abnormal. TRIG (test code = 3516908894) 84 mg/dL 30-170 LDL CHOL (test code = 13405-4) 142 mg/dL See_Comment [Automated messa ge] The system which generated this result transmitted reference range: <=160. The reference range was not used to interpret this result as normal/abnormal. VLDL (test code = 6405314605) 17 mg/dL 5-60 Lab Interpretation (test code = 95468-5) [facility]normal [facility]neyN-[facility]MINAL [id number] 14:23:55* Test Item Value Reference Range Interpretation Comme nts NT-proBNP (test code = 4628358499) See_Comment [Automated message] The system which generated this result transmitted reference range: <=125. The reference range was not used to interpret this result as normal/abnormal. KRYSTLE (test code = KRYSTLE) Biotin has been reported to cause a negative bias, interpret results relative to patient's use of biotin. Lab Interpretation (test code = 02251-9) Normal [facility] THRMPLAS [id number] 14:23:25* Test Item Value Reference Range Interpretation Comme [facility] APTT Patient (test code = 3173-2) See_Comment [Automated message] The system which generated this result transmitted reference range: 23 - 38 Seconds. The reference range was not used to interpret this result as normal/abnormal. KRYSTLE (test code = KRYSTLE) The [facility] patient population mean normal value for aPTT is 30 seconds. Lab Interpretation (test code = 18188-1) [facility] 14:23:05* Test Item Value Reference Range Interpretation Comme [facility] LIPASE (test code = 5969589470) 502 U/L 0-220 H Lab Interpretation (test cod e = 61288-3) [facility]normal [facility]OLIC PANEL (33595)2022-10-11 14:23:05* Test Item Value Reference Range Interpretation Comme [facility] NA (test code = 2688285450) 139 mmol/L 135-145 K (test code = 9211309651) 5.0 mmol/L 3.5-5.0 Slight hemolysis CL (test code = 6802144862) 103 mmol/L 98-108 CO2 TOTAL (test code = 1983430970) 28 mmol/L 23-31 AGAP (test code = 8540203279) 2-16 BUN (test code = 3937551285) 17 mg/dL 7-23 Slight hemolysis GLUCOSE (test code = 1741066669) 103 mg/dL 70-110 CREATININE (test code = 7105106658) 0.80 mg/dL 0.60-1.25 TOTAL BILI (test code = 2292822168) 1.6 mg/dL 0.1-1.1 H CALCIUM (test code = 1894011789) 9.0 mg/dL 8.6-10.6 T PROTEIN (test code = 1960800963) 8.4 g/dL 6.3-8.2 H ALBUMIN (test code = 6366710793) 4.8 g/dL 3.5-5.0 ALK PHOS (test code = 4733444532) 57 U/L 34-122 Slight hemolysis ALTv (test code = 1742-6) 49 U/L 5-50 AST(SGOT) (test code = 6993220164) 77 U/L 13-40 H Slight hemolysis eGFR (test code = 1820642205) mL/min/1.73m2 KRYSTLE (test code = KRYSTLE) Association [...] imaging tests). Lab Interpretation (test code = 04821-4) [facility] [id number] 14:23:05* Test Item Value Reference Range Interpretation Comments TROPONIN I (test code = 6940099686) 0.018 ng/mL See_Comment [Automated message] The system [...] of biotin. Lab Interpretation (test code = 50129-8) Normal [facility] / [id number] 14:20:24* Test Item Value Reference Range Interpretation Comme nts PROTIME PATIENT (test code = 5964-2) See_Comment [Automated AIRT[employer]] The system which generated this result transmitted reference range: 12.0 - 14.7 Seconds. The reference range was not used to interpret this result as normal/abnormal. INR (test code = 6301-6) Normal INR <1.1; Warfarin Therapeutic range 2.0 to 3.0 or 2.5 to 3.5, depending upon the indications. Lab Interpretation (test code = 48557-3) [facility] [id number] 13:55:05* Test Item Value Reference Range Interpretation Comme nts WBC (test code = 6690-2) See_Comment [Automated [employer]] The system which generated this result transmitted reference range: 4.20 - 10.70 10*3/?L. The reference range was not used to interpret this result as normal/abnormal. RBC (test code = 789-8) See_Comment [Automated [employer]] The system which generated this result transmitted [...] 34.9 g/dL 31.2-35.0 RDW-SD (test code = 29281-9) 40.4 fL 38.5-51.6 RDW-CV (test code = 788-0) 13.0 % 12.1-15.4 PLT (test code = 777-3) See_Comment [Automated messa ge] The system which generated this result transmitted reference range: 150 - 328 10*3/?L. The reference range was not used to interpret this result as normal/abnormal. MPV (test code = 54508-7) 9.1 fL 9.8-13.0 L NRBC/100 WBC (test code = 0731457577) See_Comment [Automated Cat Amania ssage] The system which generated this result transmitted reference range: 0.0 - 10.0 /100 WBCs. The reference range was not used to interpret this result as normal/abnormal. NRBC x10^3 (test code = 7576532884) See_Comment [Automated messa ge] The system which generated this result transmitted reference range: 10*3/?L. The reference range was not used to interpret this result as normal/abnormal. GRAN MAT (NEUT) % (test code = 770-8) 53.2 % IMM GRAN % (test code = 2427659908) 0.10 % LYMPH % (test code = 736-9) 36.6 % MONO % (test code = 5905-5) 9.3 % EOS % (test code = 713-8) 0.5 % BASO % (test code = 706-2) 0.3 % GRAN MAT x10^3(ANC) (test code = 6123367402) 4.25 10*3/uL 1.99-6.95 IMM GRAN x10^3 (test code = 8717355747) 0.00-0.06 LYMPH x10^3 (test code = 731-0) 2.92 10*3/uL 1.09-3.23 MONO x10^3 (test code = 742-7) 0.74 10*3/uL 0.36-1.02 EOS x10^3 (test code = 711-2) 0.04 10*3/uL 0.06-0.53 L BASO x10^3 (test code = 704-7) 0.01-0.09 Lab Interpretation (test code = 45353-4) [facility]OLIC PANEL (80531)2022-06-09 13:23:22* Test Item Value Reference Range Interpretation Comme nts NA (test code = 4595274414) 138 mmol/L 135-145 K (test code = 1925680683) 4.5 mmol/L 3.5-5 CL (test code = 0338066439) 106 mmol/L 98-108 CO2 TOTAL (test code = 9591614942) 24 mmol/L 23-31 AGAP (test code = 1450982890) 2-16 BUN (test code = 4500242495) 18 mg/dL 7-23 GLUCOSE (test code = 7536009708) 97 mg/dL 70-110 CREATININE (test code = 9440101978) 0.98 mg/dL 0.6-1.25 TOTAL BILI (test code = 0454449360) 0.5 mg/dL 0.1-1.1 CALCIUM (test code = 9282256617) 9.3 mg/dL 8.6-10.6 T PROTEIN (test code = 3473579506) 7.3 g/dL 6.3-8.2 ALBUMIN (test code = 1343986416) 4.5 g/dL 3.5-5 ALK PHOS (test code = 6754143470) 65 U/L 34-122 ALTv (test code = 1742-6) 27 U/L 5-50 AST(SGOT) (test code = 1046385675) 33 U/L 13-40 eGFR (test code = 8876152050) mL/min/1.73m2 KRYSTLE (test code = KRYSTLE) Association [...] [facility] 13:23:01* Test Item Value Reference Range Interpretation Comme nts LIPASE (test code = 4760065670) 596 U/L 0-220 H Lab Interpretation (test cod e = 30383-9) Abnormal [facility] WITH [id number] 13:09:00* Test Item Value Reference Range Interpretation Comme nts WBC (test code = 6690-2) See_Comment [Automated OKKAM] The system which generated this result transmitted reference range: 4.20 - 10.70 10*3/?L. The reference range was not used to interpret this result as normal/abnormal. RBC (test code = 789-8) See_Comment [Automated OKKAM] The system which generated this result transmitted [...] g/dL 31.2-35 H RDW-SD (test code = 12987-1) 38.3 fL 38.5-51.6 L RDW-CV (test code = 788-0) 12.3 % 12.1-15.4 PLT (test code = 777-3) See_Comment [Automated AIRTAMEa ge] The system which generated this result transmitted reference range: 150 - 328 10*3/?L. The reference range was not used to interpret this result as normal/abnormal. MPV (test code = 18445-0) 9.2 fL 9.8-13 L NRBC/100 WBC (test code = 1422693227) See_Comment [Automated Cat Amania ssage] The system which generated this result transmitted reference range: 0.0 - 10.0 /100 WBCs. The reference range was not used to interpret this result as normal/abnormal. NRBC x10^3 (test code = 6947329979) See_Comment [Automated AIRTAMEa ge] The system which generated this result transmitted reference range: 10*3/?L. The reference range was not used to interpret this result as normal/abnormal. GRAN MAT (NEUT) % (test code = 770-8) 47.3 % IMM GRAN % (test code = 9828367596) 0.30 % LYMPH % (test code = 736-9) 43.8 % MONO % (test code = 5905-5) 7.8 % EOS % (test code = 713-8) 0.5 % BASO % (test code = 706-2) 0.3 % GRAN MAT x10^3(ANC) (test code = 9631294896) 3.04 10*3/uL 1.99-6.95 IMM GRAN x10^3 (test code = 8282987070) 0-0.06 LYMPH x10^3 (test code = 731-0) 2.81 10*3/uL 1.09-3.23 MONO x10^3 (test code = 742-7) 0.50 10*3/uL 0.36-1.02 EOS x10^3 (test code = 711-2) 0.03 10*3/uL 0.06-0.53 L BASO x10^3 (test code = 704-7) 0.01-0.09 Lab Interpretation (test code = 55692-2) Abnormal [facility] METABOLIC PANEL (NA, K, CL, CO2, GLUCOSE, BUN, CREATININE, CA)2021-11-01 10:40:12* Test Item Value Reference Range Interpretation Comme nts NA (test code = 8149160910) 136 mmol/L 135-145 K (test code = 9395572966) 4.2 mmol/L 3.5-5.0 CL (test code = 4422600720) 104 mmol/L 98-108 CO2 TOTAL (test code = 9483784468) 31 mmol/L 23-31 AGAP (test code = 6631340340) 2-16 L BUN (test code = 3464950433) 15 mg/dL 7-23 GLUCOSE (test code = 7025384795) 91 mg/dL 70-110 CREATININE (test code = 1883029367) 0.96 mg/dL 0.60-1.25 CALCIUM (test code = 9074103116) 8.5 mg/dL 8.6-10.6 L eGFR (test code = 2697204169) mL/min/1.73m2 KRYSTLE (test code = KRYSTLE) Association [...] imaging tests). Lab Interpretation (test code = 46593-5) [facility]2022-02-18 10:40:12* Test Item Value Reference Range Interpretation Comme nts MAGNESIUM (test code = 6934851607) 1.7 mg/dL 1.7-2.4 Lab Interpretation (test cod e = 91854-5) Normal [facility]PHOSPH[facility]2022-02-18 10:39:52* Test Item Value Reference Range Interpretation Comme nts PHOSPHORUS (test code = 3698512867) 4.4 mg/dL 2.5-5.0 Lab Interpretation (test cod e = 88329-8) [facility] WITH [id number] 10:25:11* Test Item Value Reference Range Interpretation Comme nts WBC (test code = 6690-2) See_Comment [Automated OKKAM] The system which generated this result transmitted reference range: 4.20 - 10.70 10*3/?L. The reference range was not used to interpret this result as normal/abnormal. RBC (test code = 789-8) See_Comment [Automated [employer]] The system which generated this result transmitted [...] 34.3 g/dL 31.2-35.0 RDW-SD (test code = 84639-1) 38.5 fL 38.5-51.6 RDW-CV (test code = 788-0) 12.3 % 12.1-15.4 PLT (test code = 777-3) See_Comment [Automated messa ge] The system which generated this result transmitted reference range: 150 - 328 10*3/?L. The reference range was not used to interpret this result as normal/abnormal. MPV (test code = 23079-6) 9.6 fL 9.8-13.0 L NRBC/100 WBC (test code = 1291622941) See_Comment [Automated Cat Amania ssage] The system which generated this result transmitted reference range: 0.0 - 10.0 /100 WBCs. The reference range was not used to interpret this result as normal/abnormal. NRBC x10^3 (test code = 1527215154) <0.01 See_Comment [Automated messa ge] The system which generated this result transmitted reference range: 10*3/?L. The reference range was not used to interpret this result as normal/abnormal. GRAN MAT (NEUT) % (test code = 770-8) 49.5 % IMM GRAN % (test code = 7130260273) 0.30 % LYMPH % (test code = 736-9) 39.4 % MONO % (test code = 5905-5) 9.7 % EOS % (test code = 713-8) 0.8 % BASO % (test code = 706-2) 0.3 % GRAN MAT x10^3(ANC) (test code = 6244208275) 3.13 10*3/uL 1.99-6.95 IMM GRAN x10^3 (test code = 8038581659) <0.03 0.00-0.06 LYMPH x10^3 (test code = 731-0) 2.49 10*3/uL 1.09-3.23 MONO x10^3 (test code = 742-7) 0.61 10*3/uL 0.36-1.02 EOS x10^3 (test code = 711-2) 0.05 10*3/uL 0.06-0.53 L BASO x10^3 (test code = 704-7) <0.03 0.01-0.09 Lab Interpretation (test code = 43565-7) [facility]neyN-TERMINAL [id number] 17:32:56* Test Item Value Reference Range Interpretation Comme nts NT-proBNP (test code = 7008757311) 13 pg/mL See_Comment [Automated message] The system which generated this result transmitted reference range: <=125. The reference range was not used to interpret this result as normal/abnormal. KRYSTLE (test code = KRYSTLE) Biotin has been reported to cause a negative bias, interpret results relative to patient's use of biotin. Lab Interpretation (test code = 92262-4) [facility]neyN-[facility]MINAL [id number] 10:50:49* Test Item Value Reference Range Interpretation Comme nts NT-proBNP (test code = 4271156843) <11 See_Comment [Automated message] The system which generated this result transmitted reference range: <=125 pg/mL. The reference range was not used to interpret this result as normal/abnormal. KRYSTLE (test code = KRYSTLE) Biotin has been reported to cause a negative bias, interpret results relative to patient's use of biotin. Lab Interpretation (test code = 69782-8) [facility]neyTR[facility] [id number] 10:36:56* Test Item Value Reference Range Interpretation Comments TROPONIN I (test code = 8278833226) 0.004 ng/mL See_Comment [Automated message] The system [...] of biotin. Lab Interpretation (test code = 00702-0) Normal [facility]. METABOLIC PANEL (92922)2021-10-31 10:33:50* Test Item Value Reference Range Interpretation Comme nts NA (test code = 6658664495) 139 mmol/L 135-145 K (test code = 9147901836) 4.0 mmol/L 3.5-5.0 CL (test code = 6721267875) 109 mmol/L 98-108 H CO2 TOTAL (test code = 1938312405) 27 mmol/L 23-31 AGAP (test code = 4228481445) 2-16 BUN (test code = 6606812634) 16 mg/dL 7-23 GLUCOSE (test code = 8383599849) 97 mg/dL 70-110 CREATININE (test code = 0460392887) 1.00 mg/dL 0.60-1.25 TOTAL BILI (test code = 0357001069) 1.0 mg/dL 0.1-1.1 CALCIUM (test code = 8950281324) 8.7 mg/dL 8.6-10.6 T PROTEIN (test code = 8929359735) 7.9 g/dL 6.3-8.2 ALBUMIN (test code = 9878775742) 4.4 g/dL 3.5-5.0 ALK PHOS (test code = 5844971319) 60 U/L 34-122 ALTv (test code = 1742-6) 56 U/L 5-50 H AST(SGOT) (test code = 8621231680) 49 U/L 13-40 H eGFR (test code = 2877577084) mL/min/1.73m2 KRYSTLE (test code = KRYSTLE) Association [...] imaging tests). Lab Interpretation (test code = 95315-4) [facility]normal [facility] McKinneyMagnesium [id number] 10:25:32* Test Item Value Reference Range Interpretation Comme nts MAGNESIUM (test code = 9475262067) 1.8 mg/dL 1.7-2.4 Lab Interpretation (test cod e = 35324-5) [facility]2022-02-17 10:25:12* Test Item Value Reference Range Interpretation Comme nts PHOSPHORUS (test code = 1149997225) 3.9 mg/dL 2.5-5.0 Lab Interpretation (test cod e = 25191-2) Normal [facility]CREATINE [id number] 10:24:52* Test Item Value Reference Range Interpretation Comme nts CK (test code = 9748401406) 215 U/L 33-194 H Lab Interpretation (test cod e = 73377-2) [facility]normal [facility]neyCBC with [id number] 10:18:09* Test Item Value Reference Range Interpretation Comme nts WBC (test code = 6690-2) See_Comment [Automated OKKAM] The system which generated this result transmitted reference range: 4.20 - 10.70 10*3/?L. The reference range was not used to interpret this result as normal/abnormal. RBC (test code = 789-8) See_Comment [Automated AIRT[employer]] The system which generated this result transmitted [...] 33.9 g/dL 31.2-35.0 RDW-SD (test code = 19257-7) 41.3 fL 38.5-51.6 RDW-CV (test code = 788-0) 13.0 % 12.1-15.4 PLT (test code = 777-3) See_Comment [Automated messa ge] The system which generated this result transmitted reference range: 150 - 328 10*3/?L. The reference range was not used to interpret this result as normal/abnormal. MPV (test code = 65498-3) 10.0 fL 9.8-13.0 NRBC/100 WBC (test code = 6792819365) See_Comment [Automated Cat Amania ssage] The system which generated this result transmitted reference range: 0.0 - 10.0 /100 WBCs. The reference range was not used to interpret this result as normal/abnormal. NRBC x10^3 (test code = 4091322214) <0.01 See_Comment [Automated messa ge] The system which generated this result transmitted reference range: 10*3/?L. The reference range was not used to interpret this result as normal/abnormal. GRAN MAT (NEUT) % (test code = 770-8) 46.4 % IMM GRAN % (test code = 0698853000) 0.20 % LYMPH % (test code = 736-9) 44.0 % MONO % (test code = 5905-5) 8.3 % EOS % (test code = 713-8) 0.7 % BASO % (test code = 706-2) 0.4 % GRAN MAT x10^3(ANC) (test code = 9323732648) 3.73 10*3/uL 1.99-6.95 IMM GRAN x10^3 (test code = 2595769086) <0.03 0.00-0.06 LYMPH x10^3 (test code = 731-0) 3.55 10*3/uL 1.09-3.23 H MONO x10^3 (test code = 742-7) 0.67 10*3/uL 0.36-1.02 EOS x10^3 (test code = 711-2) 0.06 10*3/uL 0.06-0.53 BASO x10^3 (test code = 704-7) 0.03 10*3/uL 0.01-0.09 Lab Interpretation (test code = 01745-7) [facility]normal [facility]neyPROTHROMBIN TIME / [id number] 10:18:09* Test Item Value Reference Range Interpretation [...] the indications. Lab Interpretation (test code = 91324-6) [facility]neyTROP[facility]IN [id number] 07:43:50* Test Item Value Reference Range Interpretation Comments TROPONIN I (test code = 0066605322) 0.005 ng/mL See_Comment [Automated message] The system [...] of biotin. Lab Interpretation (test code = 20264-6) [facility]COMP[facility] METABOLIC PANEL (34514)2021-10-30 20:56:25* Test Item Value Reference Range Interpretation Comme nts NA (test code = 5405177054) 139 mmol/L 135-145 K (test code = 1749690228) 4.8 mmol/L 3.5-5.0 CL (test code = 8235854002) 105 mmol/L 98-108 CO2 TOTAL (test code = 2635853841) 26 mmol/L 23-31 AGAP (test code = 9242927746) 2-16 BUN (test code = 3606635266) 18 mg/dL 7-23 GLUCOSE (test code = 6164261416) 135 mg/dL 70-110 H CREATININE (test code = 6084627079) 0.98 mg/dL 0.60-1.25 TOTAL BILI (test code = 5787043923) 0.8 mg/dL 0.1-1.1 CALCIUM (test code = 7265260032) 10.0 mg/dL 8.6-10.6 T PROTEIN (test code = 4350821397) 10.3 g/dL 6.3-8.2 H ALBUMIN (test code = 5345873159) 5.5 g/dL 3.5-5.0 H ALK PHOS (test code = 8119674866) 74 U/L 34-122 ALTv (test code = 1742-6) 69 U/L 5-50 H AST(SGOT) (test code = 1662665228) 59 U/L 13-40 H eGFR (test code = 4214796391) mL/min/1.73m2 KRYSTLE (test code = KRYSTLE) Association [...] imaging tests). Lab Interpretation (test code = 66267-4) [facility]neyL[facility] 20:56:05* Test Item Value Reference Range Interpretation Comme nts LIPASE (test code = 1420740234) 70 U/L 0-220 Lab Interpretation (test cod e = 56915-9) Normal [facility] WITH [id number] 20:34:20* Test Item Value Reference Range Interpretation Comme nts WBC (test code = 6690-2) See_Comment H [Automated OKKAM] The system which generated this result transmitted reference range: 4.20 - 10.70 10*3/?L. The reference range was not used to interpret this result as normal/abnormal. RBC (test code = 789-8) See_Comment H [Automated OKKAM] The system which generated this result transmitted [...] 34.3 g/dL 31.2-35.0 RDW-SD (test code = 87625-4) 40.6 fL 38.5-51.6 RDW-CV (test code = 788-0) 12.8 % 12.1-15.4 PLT (test code = 777-3) See_Comment [Automated messa ge] The system which generated this result transmitted reference range: 150 - 328 10*3/?L. The reference range was not used to interpret this result as normal/abnormal. MPV (test code = 82702-8) 9.2 fL 9.8-13.0 L NRBC/100 WBC (test code = 5544394940) See_Comment [Automated Cat Amania ssage] The system which generated this result transmitted reference range: 0.0 - 10.0 /100 WBCs. The reference range was not used to interpret this result as normal/abnormal. NRBC x10^3 (test code = 0631730715) <0.01 See_Comment [Automated AIRTAMEa ge] The system which generated this result transmitted reference range: 10*3/?L. The reference range was not used to interpret this result as normal/abnormal. GRAN MAT (NEUT) % (test code = 770-8) 67.1 % IMM GRAN % (test code = 7251831468) 0.40 % LYMPH % (test code = 736-9) 24.5 % MONO % (test code = 5905-5) 7.6 % EOS % (test code = 713-8) 0.1 % BASO % (test code = 706-2) 0.3 % GRAN MAT x10^3(ANC) (test code = 7813593625) 7.34 10*3/uL 1.99-6.95 H IMM GRAN x10^3 (test code = 1096430830) 0.04 10*3/uL 0.00-0.06 LYMPH x10^3 (test code = 731-0) 2.67 10*3/uL 1.09-3.23 MONO x10^3 (test code = 742-7) 0.83 10*3/uL 0.36-1.02 EOS x10^3 (test code = 711-2) <0.03 0.06-0.53 L BASO x10^3 (test code = 704-7) 0.03 10*3/uL 0.01-0.09 Lab Interpretation (test code = 14660-5) [facility]normal [facility]neyCREATINE [id number] 05:55:54* Test Item Value Reference Range Interpretation Comme nts CK (test code = 4757875540) 3682 U/L 33-194 H Lab Interpretation (test cod e = 93241-1) [facility]normal [facility]neyCREATINE [id number] 05:55:54* Test Item Value Reference Range Interpretation Comme nts CK (test code = 1618260467) 3682 U/L 33-194 H Lab Interpretation (test cod e = 57466-7) [facility] (NA, K, CL, CO2, GLUCOSE, BUN, CREATININE, CA)2021-05-24 05:02:27* Test Item Value Reference Range Interpretation Comme nts NA (test code = 6806017196) 137 mmol/L 135-145 K (test code = 0526655844) 3.6 mmol/L 3.5-5.0 CL (test code = 6915196258) 105 mmol/L 98-108 CO2 TOTAL (test code = 6996198450) 23 mmol/L 23-31 AGAP (test code = 1792212321) 2-16 BUN (test code = 5225525683) 26 mg/dL 7-23 H GLUCOSE (test code = 2595566635) 95 mg/dL 70-110 CREATININE (test code = 5163461471) 1.31 mg/dL 0.60-1.25 H CALCIUM (test code = 5978684466) 8.6 mg/dL 8.6-10.6 eGFR (test code = 4313830215) mL/min/1.73m2 KRYSTLE (test code = KRYSTLE) Association [...] imaging tests). Lab Interpretation (test code = 49098-1) [facility] (NA, K, CL, CO2, GLUCOSE, BUN, CREATININE, CA)2021-05-24 05:02:27* Test Item Value Reference Range Interpretation Comme nts NA (test code = 7067105024) 137 mmol/L 135-145 K (test code = 1645018852) 3.6 mmol/L 3.5-5.0 CL (test code = 9730033778) 105 mmol/L 98-108 CO2 TOTAL (test code = 1942051177) 23 mmol/L 23-31 AGAP (test code = 8933445507) 2-16 BUN (test code = 0065312625) 26 mg/dL 7-23 H GLUCOSE (test code = 1922718612) 95 mg/dL 70-110 CREATININE (test code = 8546180167) 1.31 mg/dL 0.60-1.25 H CALCIUM (test code = 8262710372) 8.6 mg/dL 8.6-10.6 eGFR (test code = 4621448263) mL/min/1.73m2 KRYSTLE (test code = KRYSTLE) Association [...] imaging tests). Lab Interpretation (test code = 38201-1) [facility]normal [facility]neyTRVIMALALYSHAN [id number] 02:56:10* Test Item Value Reference Range Interpretation Comments TROPONIN I (test code = 6881205189) 0.004 ng/mL See_Comment [Automated message] The system [...] of biotin. Lab Interpretation (test code = 82334-3) [facility]neyTR[facility] [id number] 02:56:10* Test Item Value Reference Range Interpretation Comments TROPONIN I (test code = 5121736235) 0.004 ng/mL See_Comment [Automated message] The system [...] of biotin. Lab Interpretation (test code = 15806-4) Normal [facility]CREAT[facility] GSBNBY3338-09-09 02:41:54* Test Item Value Reference Range Interpretation Comme nts CK (test code = 6436617662) 4607 U/L 33-194 H Lab Interpretation (test cod e = 99450-6) [facility]normal [facility]CREATINE [id number] 02:41:54* Test Item Value Reference Range Interpretation Comme nts CK (test code = 3514365750) 4607 U/L 33-194 H Lab Interpretation (test cod e = 77972-7) [facility]normal [facility]neyN-[facility]MINAL [id number] 02:33:28* Test Item Value Reference Range Interpretation Comme nts NT-proBNP (test code = 2306799095) 14 pg/mL See_Comment [Automated message] The system which generated this result transmitted reference range: <=125. The reference range was not used to interpret this result as normal/abnormal. KRYSTLE (test code = KRYSTLE) Biotin has been reported to cause a negative bias, interpret results relative to patient's use of biotin. Lab Interpretation (test code = 52982-8) [facility] [id number] 02:33:28* Test Item Value Reference Range Interpretation Comme nts NT-proBNP (test code = 2370470284) 14 pg/mL See_Comment [Automated message] The system which generated this result transmitted reference range: <=125. The reference range was not used to interpret this result as normal/abnormal. KRYSTLE (test code = KRYSTLE) Biotin has been reported to cause a negative bias, interpret results relative to patient's use of biotin. Lab Interpretation (test code = 70915-8) [facility]neyURINALYSIS2021-09-10 02:29:35* Test Item Value Reference Range Interpretation Comme nts APPEARANCE (test code = 2971866532) Clear Clear COLOR (test code = 8391311343) Yellow Yellow PH (test code = 8935038889) 4.8-8.0 SP GRAVITY (test code = 9732270491) 1.003-1.030 GLU U QUAL (test code = 2582203751) Normal Normal BLOOD (test code = 7352038583) Negative Negative KETONES (test code = 9799003083) Negative Negative PROTEIN (test code = 2887-8) Negative Negative UROBILIN (test code = 1596589922) 2.0 mg/dL Normal A BILIRUBIN (test code = 7323551292) Negative Negative NITRITE (test code = 9065195248) Negative Negative LEUK MO (test code = 9276112113) Negative Negative RBC/HPF (test code = 3718637551) See_Comment [Automated [employer]] The system which generated this result transmitted reference range: 0 - 3 HPF. The reference range was not used to interpret this result as normal/abnormal. WBC/HPF (test code = 7634553230) See_Comment [Automated [employer] ge] The system which generated this result transmitted reference range: 0 - 5 HPF. The reference range was not used to interpret this result as normal/abnormal. BACTERIA (test code = 1645063189) Negative Negative MUCOUS (test code = 9459388167) Slight Negative LPF A SQ EPITH (test code = 5024092677) <1 HPF Lab Interpretation (test code = 24776-2) [facility]35* Test Item Value Reference Range Interpretation Comme nts APPEARANCE (test code = 3687891277) Clear Clear COLOR (test code = 4334881246) Yellow Yellow PH (test code = 4420808347) 4.8-8.0 SP GRAVITY (test code = 3403698892) 1.003-1.030 GLU U QUAL (test code = 8572634166) Normal Normal BLOOD (test code = 3492788282) Negative Negative KETONES (test code = 0170387627) Negative Negative PROTEIN (test code = 2887-8) Negative Negative UROBILIN (test code = 2922217800) 2.0 mg/dL Normal A BILIRUBIN (test code = 3230255385) Negative Negative NITRITE (test code = 1550489372) Negative Negative LEUK MO (test code = 4478052746) Negative Negative RBC/HPF (test code = 2635672046) See_Comment [Automated AIRTAMEa ge] The system which generated this result transmitted reference range: 0 - 3 HPF. The reference range was not used to interpret this result as normal/abnormal. WBC/HPF (test code = 0057426875) See_Comment [Automated AIRTAMEa ge] The system which generated this result transmitted reference range: 0 - 5 HPF. The reference range was not used to interpret this result as normal/abnormal. BACTERIA (test code = 9751856028) Negative Negative MUCOUS (test code = 4022971267) Slight Negative LPF A SQ EPITH (test code = 9803241197) <1 HPF Lab Interpretation (test code = 10167-6) Abnormal [facility]. METABOLIC PANEL (33251)2021-05-24 02:25:07* Test Item Value Reference Range Interpretation Comme nts NA (test code = 2386223387) 137 mmol/L 135-145 K (test code = 9624041769) 3.1 mmol/L 3.5-5.0 L CL (test code = 0174686637) 102 mmol/L 98-108 CO2 TOTAL (test code = 6822616208) 22 mmol/L 23-31 L AGAP (test code = 2484424593) 2-16 BUN (test code = 8310712777) 28 mg/dL 7-23 H GLUCOSE (test code = 0186689581) 132 mg/dL 70-110 H CREATININE (test code = 6144606312) 1.77 mg/dL 0.60-1.25 H TOTAL BILI (test code = 5633576013) 1.0 mg/dL 0.1-1.1 CALCIUM (test code = 5198919446) 9.4 mg/dL 8.6-10.6 T PROTEIN (test code = 3920999285) 9.4 g/dL 6.3-8.2 H ALBUMIN (test code = 9045565550) 5.0 g/dL 3.5-5.0 ALK PHOS (test code = 0615069488) 79 U/L 34-122 ALTv (test code = 1742-6) 112 U/L 5-50 H AST(SGOT) (test code = 0753812856) 152 U/L 13-40 H eGFR (test code = 8703358110) mL/min/1.73m2 KRYSTLE (test code = KRYSTLE) Association [...] imaging tests). Lab Interpretation (test code = 14020-5) Abnormal [facility] METABOLIC PANEL (84154)2021-05-24 02:25:07* Test Item Value Reference Range Interpretation Comme nts NA (test code = 5266244922) 137 mmol/L 135-145 K (test code = 0067134808) 3.1 mmol/L 3.5-5.0 L CL (test code = 8719882218) 102 mmol/L 98-108 CO2 TOTAL (test code = 2317176689) 22 mmol/L 23-31 L AGAP (test code = 0835476893) 2-16 BUN (test code = 4438135323) 28 mg/dL 7-23 H GLUCOSE (test code = 3402279570) 132 mg/dL 70-110 H CREATININE (test code = 9069719252) 1.77 mg/dL 0.60-1.25 H TOTAL BILI (test code = 9162317636) 1.0 mg/dL 0.1-1.1 CALCIUM (test code = 7152228943) 9.4 mg/dL 8.6-10.6 T PROTEIN (test code = 1762888974) 9.4 g/dL 6.3-8.2 H ALBUMIN (test code = 2386181156) 5.0 g/dL 3.5-5.0 ALK PHOS (test code = 7811695967) 79 U/L 34-122 ALTv (test code = 1742-6) 112 U/L 5-50 H AST(SGOT) (test code = 8660094347) 152 U/L 13-40 H eGFR (test code = 2974812560) mL/min/1.73m2 KRYSTLE (test code = KRYSTLE) Association [...] imaging tests). Lab Interpretation (test code = 05198-7) Abnormal [facility] WITH [id number] 02:03:22* Test Item Value Reference Range Interpretation Comme nts WBC (test code = 6690-2) See_Comment [Mirimus] The system which generated this result transmitted reference range: 4.20 - 10.70 10*3/?L. The reference range was not used to interpret this result as normal/abnormal. RBC (test code = 789-8) See_Comment [Mirimus] The system which generated this result transmitted [...] g/dL 31.2-35.0 H RDW-SD (test code = 12630-4) 39.7 fL 38.5-51.6 RDW-CV (test code = 788-0) 12.7 % 12.1-15.4 PLT (test code = 777-3) See_Comment [Automated messa ge] The system which generated this result transmitted reference range: 150 - 328 10*3/?L. The reference range was not used to interpret this result as normal/abnormal. MPV (test code = 25253-5) 9.7 fL 9.8-13.0 L NRBC/100 WBC (test code = 0787256405) See_Comment [Automated Cat Amania ssage] The system which generated this result transmitted reference range: 0.0 - 10.0 /100 WBCs. The reference range was not used to interpret this result as normal/abnormal. NRBC x10^3 (test code = 1022857694) <0.01 See_Comment [Automated messa ge] The system which generated this result transmitted reference range: 10*3/?L. The reference range was not used to interpret this result as normal/abnormal. GRAN MAT (NEUT) % (test code = 770-8) 45.9 % IMM GRAN % (test code = 6932248315) 0.20 % LYMPH % (test code = 736-9) 41.7 % MONO % (test code = 5905-5) 11.6 % EOS % (test code = 713-8) 0.3 % BASO % (test code = 706-2) 0.3 % GRAN MAT x10^3(ANC) (test code = 6638781754) 3.95 10*3/uL 1.99-6.95 IMM GRAN x10^3 (test code = 2668915496) <0.03 0.00-0.06 LYMPH x10^3 (test code = 731-0) 3.60 10*3/uL 1.09-3.23 H MONO x10^3 (test code = 742-7) 1.00 10*3/uL 0.36-1.02 EOS x10^3 (test code = 711-2) 0.03 10*3/uL 0.06-0.53 L BASO x10^3 (test code = 704-7) 0.03 10*3/uL 0.01-0.09 Lab Interpretation (test code = 26948-5) Abnormal [facility] WITH [id number] 02:03:22* Test Item Value Reference Range Interpretation Comme nts WBC (test code = 6690-2) See_Comment [Automated AIRTAMEa ge] The system which generated this result transmitted reference range: 4.20 - 10.70 10*3/?L. The reference range was not used to interpret this result as normal/abnormal. RBC (test code = 789-8) See_Comment [Automated AIRTAMEa ge] The system which generated this result [...] g/dL 31.2-35.0 H RDW-SD (test code = 09202-2) 39.7 fL 38.5-51.6 RDW-CV (test code = 788-0) 12.7 % 12.1-15.4 PLT (test code = 777-3) See_Comment [Automated AIRTAMEa ge] The system which generated this result transmitted reference range: 150 - 328 10*3/?L. The reference range was not used to interpret this result as normal/abnormal. MPV (test code = 03470-9) 9.7 fL 9.8-13.0 L NRBC/100 WBC (test code = 8246675313) See_Comment [Automated Cat Amania ssage] The system which generated this result transmitted reference range: 0.0 - 10.0 /100 WBCs. The reference range was not used to interpret this result as normal/abnormal. NRBC x10^3 (test code = 3932746514) <0.01 See_Comment [Automated AIRTAMEa ge] The system which generated this result transmitted reference range: 10*3/?L. The reference range was not used to interpret this result as normal/abnormal. GRAN MAT (NEUT) % (test code = 770-8) 45.9 % IMM GRAN % (test code = 8398829039) 0.20 % LYMPH % (test code = 736-9) 41.7 % MONO % (test code = 5905-5) 11.6 % EOS % (test code = 713-8) 0.3 % BASO % (test code = 706-2) 0.3 % GRAN MAT x10^3(ANC) (test code = 9030186915) 3.95 10*3/uL 1.99-6.95 IMM GRAN x10^3 (test code = 2124862540) <0.03 0.00-0.06 LYMPH x10^3 (test code = 731-0) 3.60 10*3/uL 1.09-3.23 H MONO x10^3 (test code = 742-7) 1.00 10*3/uL 0.36-1.02 EOS x10^3 (test code = 711-2) 0.03 10*3/uL 0.06-0.53 L BASO x10^3 (test code = 704-7) 0.03 10*3/uL 0.01-0.09 Lab Interpretation (test code = 71125-2) [facility] NOW RAPID TESTING[facility]2021-05-02 00:31:00* Test Item Value Reference Range Interpretation Comme nts SARS-CoV-2 Rapid ID NOW (test code = 79374-8) Not Detected Not Detected KRYSTLE (test code = KRYSTLE) ID NOW COVID-19 As say is an isothermal nucleic acid amplification test intended for the qualitative detection of nucleic acid from SARS-CoV-2 viral RNA in nasopharyngeal (TIME RECORDER) specimens. It is used under Emergency Use [...] clinically indicated. Lab Interpretation (test code = 21861-0) Normal [facility] STREP SCREEN FOR GROUP [id number] 00:25:45* Test Item Value Reference Range Interpretation Comme nts Streptococcus pyogenes (grou p A) antigen (test code = 04170-4) Negative Negative Lab Interpretation (test cod e = 65727-2) [facility] NOW RAPID TESTING)2021-04-02 01:41:42* Test Item Value Reference Range Interpretation Comme nts SARS-CoV-2 Rapid ID NOW (test code = 18523-8) Not Detected Not Detected KRYSTLE (test code = KRYSTLE) ID NOW COVID-19 As say is an isothermal nucleic acid amplification test intended for the qualitative detection of nucleic acid from SARS-CoV-2 viral RNA in nasopharyngeal (TIME RECORDER) specimens. It is used under Emergency Use [...] clinically indicated. Lab Interpretation (test code = 82926-1) Normal [facility] STREP SCREEN FOR GROUP [id number] 01:39:31* Test Item Value Reference Range Interpretation Comme nts Streptococcus pyogenes (grou p A) antigen (test code = 81793-3) Negative Negative Lab Interpretation (test cod e = 60611-6) Normal [facility] 3+ VW [id number] 02:41:03 Impression: No acute osseous abnormality. AFC: [id number] of Report Exam: XR WRIST 3+ [...] soft tissue edema.IMPRESSIONImpression: No acute osseous abnormality.AF: [id number] 460End of Report [facility]ney[facility]inalysis2021-07-05 01:32:01* Test Item Value Reference Range Interpretation Comme nts APPEARANCE (test code = 1196056053) Clear Clear COLOR (test code = 4849860160) Yellow Yellow PH (test code = 3194658163) 4.8-8.0 SP GRAVITY (test code = 0327216441) 1.003-1.030 GLU U QUAL (test code = 8048160294) Normal Normal BLOOD (test code = 7199129197) Negative Negative KETONES (test code = 7051143273) Negative Negative PROTEIN (test code = 2887-8) Negative Negative UROBILIN (test code = 8219135369) 2.0 mg/dL Normal A BILIRUBIN (test code = 7778987318) Negative Negative NITRITE (test code = 1630149586) Negative Negative LEUK MO (test code = 6256574689) Negative Negative RBC/HPF (test code = 9700773566) See_Comment [Automated OKKAM] The system which generated this result transmitted reference range: 0 - 3 HPF. The reference range was not used to interpret this result as normal/abnormal. WBC/HPF (test code = 7474915619) See_Comment [Automated [place]] The system which generated this result transmitted reference range: 0 - 5 HPF. The reference range was not used to interpret this result as normal/abnormal. BACTERIA (test code = 3813745338) Few Negative A MUCOUS (test code = 0432050904) Slight Negative LPF A SQ EPITH (test code = 6646178875) <1 HPF Lab Interpretation (test code = 06956-4) [facility]normal [facility]ST 1 [id number] 04:09:05Impression: Mild thickening of the sol of the central airways, possibly reflectinginfectious or inflammatory bronchitis. RL: 460 AFC: 31808 Ordering physician: DARNELL HSU Indication: Cough and [...] airways, possibly reflectinginfectious or inflammatory bronchitis.RL: 460AFC: 10575Akrtrjbozgmamq signed byMarisol Manzo MD, PhD at 11/14/2020 10:09 PM [facility]neyCOMPREHENS[facility] METABOLIC [id number] 00:00:00* Test Item Value Reference Range Interpretation Comme nts GLUCOSE (test code = 2217) 101 MG/DL BUN (test code = 2208) 11 MG/DL CREATININE (test code = 2214) 0.88 MG/DL eGFR AMER. (test cod e = 00038) 118 ML/MIN/1.73 eGFR NON- AMER. (test code = 05493) 102 ML/MIN/1.73 CALC BUN/CREAT (test code = [...] 1.2 RATIO BILIRUBIN, TOTAL (test code = 7) 0.6 MG/DL ALKALINE PHOSPHATASE (test code = 4) 69 U/L AST (test code = 8) 54 U/L ALT (test code = 9) 88 U/L N-TERMINAL [id number] 15:43:00* Test Item Value Reference Range Interpretation Comme nts NT-proBNP (test code = 3726715278) <11 See_Comment [Automated message] The system which generated this result transmitted reference range: <=125 pg/mL. The reference range was not used to interpret this result as normal/abnormal. KRYSTLE (test code = KRYSTLE) Biotin has been reported to cause a negative bias, interpret results relative to patient's use of biotin. Lab Interpretation (test code = 81069-7) Normal [facility] WITH [id number] 15:27:00* Test Item Value Reference Range Interpretation Comme nts WBC (test code = 6690-2) See_Comment [Automated AIRTAMEa ge] The system which generated this result transmitted reference range: 4.20 - 10.70 10*3/?L. The reference range was not used to interpret this result as normal/abnormal. RBC (test code = 789-8) See_Comment [Automated AIRTAMEa Custom Coup] The system which generated this result transmitted [...] g/dL 31.2-35 H RDW-SD (test code = 74699-6) 37.3 fL 38.5-51.6 L RDW-CV (test code = 788-0) 11.9 % 12.1-15.4 L PLT (test code = 777-3) See_Comment [Automated AIRTAMEa ge] The system which generated this result transmitted reference range: 150 - 328 10*3/?L. The reference range was not used to interpret this result as normal/abnormal. MPV (test code = 22138-0) 9.7 fL 9.8-13 L NRBC/100 WBC (test code = 8228266122) See_Comment [Automated Cat Amania ssage] The system which generated this result transmitted reference range: 0.0 - 10.0 /100 WBCs. The reference range was not used to interpret this result as normal/abnormal. NRBC x10^3 (test code = 0255472713) <0.01 See_Comment [Automated AIRTAMEa ge] The system which generated this result transmitted reference range: 10*3/?L. The reference range was not used to interpret this result as normal/abnormal. GRAN MAT (NEUT) % (test code = 770-8) 29.2 % IMM GRAN % (test code = 4086654904) 0.20 % LYMPH % (test code = 736-9) 59.0 % MONO % (test code = 5905-5) 10.1 % EOS % (test code = 713-8) 1.1 % BASO % (test code = 706-2) 0.4 % GRAN MAT x10^3(ANC) (test code = 3673536787) 1.57 10*3/uL 1.99-6.95 L IMM GRAN x10^3 (test code = 9109708182) <0.03 0-0.06 LYMPH x10^3 (test code = 731-0) 3.17 10*3/uL 1.09-3.23 MONO x10^3 (test code = 742-7) 0.54 10*3/uL 0.36-1.02 EOS x10^3 (test code = 711-2) 0.06 10*3/uL 0.06-0.53 BASO x10^3 (test code = 704-7) <0.03 0.01-0.09 Lab Interpretation (test code = 55931-8) Abnormal [facility] 1 [id number] 15:13:32No acute cardiopulmonary process. Preliminary Report Dictated by Resident: Efraín Alcaraz MD., have reviewed this study and agree withthe above report.PROCEDURE: XR CHEST1 VW CLINICAL INDICATION: dizzy TECHNIQUE: Frontal chest radiograph was obtained. COMPARISON: None FINDINGS: The lungs are clear. No pleural effusion or pneumothorax is seen. The heart is normal in size. No acute bony abnormality is noted. [facility], Radiant Results Inft User - 09/30/2020 9:14 AM CSTPROCEDURE: XR CHEST 1 VWCLINICAL INDICATION: dizzy TECHNIQUE: Frontal chest radiograph was obtained.COMPARISON: NoneFINDINGS:The lungs are clear. No pleural effusion or pneumothorax is seen. The heart isnormal in size.No acute bony abnormality is noted.IMPRESSIONNo acute cardiopulmonary process.Preliminary Report Dictated by Resident: Luiz Ruiz MD., have reviewed thisstudy and agree withthe above report.[facility]neyTROPONIN [id number] 14:59:00* Test Item Value Reference Range Interpretation Comme nts TROPONIN I (test code = 2382906253) <0.012 See_Comment [Automated message] The system which [...] biotin. ? Lab Interpretation (test code = 22509-1) Normal [facility]neyCOMP. METABOLIC PANEL (04153)2020-09-30 14:59:00* Test Item Value Reference Range Interpretation Comme nts NA (test code = 9793399824) 139 mmol/L 135-145 K (test code = 9073500783) 3.8 mmol/L 3.5-5 CL (test code = 2818347884) 103 mmol/L 98-108 CO2 TOTAL (test code = 6965886550) 26 mmol/L 23-31 AGAP (test code = 3758023189) 2-16 BUN (test code = 5814727908) 11 mg/dL 7-23 GLUCOSE (test code = 7274557338) 163 mg/dL 70-110 H CREATININE (test code = 8860523537) 0.85 mg/dL 0.6-1.25 TOTAL BILI (test code = 9915272461) 0.6 mg/dL 0.1-1.1 CALCIUM (test code = 0973529534) 9.0 mg/dL 8.6-10.6 T PROTEIN (test code = 4305487626) 8.0 g/dL 6.3-8.2 ALBUMIN (test code = 1397645234) 4.4 g/dL 3.5-5 ALK PHOS (test code = 0175887778) 75 U/L 34-122 ALTv (test code = 1742-6) 61 U/L 5-50 H AST(SGOT) (test code = 0004561984) 54 U/L 13-40 H eGFR Calculation (Non-) (test code = 8372250597) mL/min/1.73m2 eGFR Calculation () (test code = 5121296240) mL/min/1.73m2 KRYSTLE (test code = KRYSTLE) Association [...] imaging tests). Lab Interpretation (test code = 59736-4) Abnormal [facility] McKinneyLIPASE, [id number] 14:59:00* Test Item Value Reference Range Interpretation Comme nts LIPASE (test code = 3603308644) 116 U/L 0-220 Lab Interpretation (test cod e = 58600-7) Normal [facility] McKinneyTroponin [id number] 04:30:00* Test Item Value Reference Range Interpretation Comme nts TROPONIN I (test code = 9684472000) <0.012 See_Comment [Automated message] The system which [...] biotin. ? Lab Interpretation (test code = 65830-4) Normal [facility] McKinneyComplete Metabolic [id number] 03:24:00* Test Item Value Reference Range Interpretation Comme nts NA (test code = 7601219341) 137 mmol/L 135-145 K (test code = 9454327099) 4.7 mmol/L 3.5-5 CL (test code = 6289650930) 101 mmol/L 98-108 CO2 TOTAL (test code = 3364184604) 27 mmol/L 23-31 AGAP (test code = 9935170969) 2-16 BUN (test code = 0991443561) 16 mg/dL 7-23 GLUCOSE (test code = 5082735386) 226 mg/dL 70-110 H CREATININE (test code = 1408046865) 1.13 mg/dL 0.6-1.25 TOTAL BILI (test code = 6435696804) 0.7 mg/dL 0.1-1.1 CALCIUM (test code = 7202744749) 9.3 mg/dL 8.6-10.6 T PROTEIN (test code = 8398890991) 7.8 g/dL 6.3-8.2 ALBUMIN (test code = 0928734298) 3.9 g/dL 3.5-5 ALK PHOS (test code = 9709339767) 79 U/L 34-122 ALTv (test code = 1742-6) 62 U/L 5-50 H AST(SGOT) (test code = 8691426907) 49 U/L 13-40 H eGFR Calculation (Non-) (test code = 6417553166) mL/min/1.73m2 eGFR Calculation () (test code = 2825047559) mL/min/1.73m2 KRYSTLE (test code = KRYSTLE) Association [...] imaging tests). Lab Interpretation (test code = 22149-1) Abnormal [facility] McKinneyLipase, [id number] 03:23:00* Test Item Value Reference Range Interpretation Comme nts LIPASE (test code = 9264386387) 317 U/L 0-220 H Lab Interpretation (test cod e = 39814-6) Abnormal [facility] McKinneyCBC with [id number] 03:21:00* Test Item Value Reference Range Interpretation [...] g/dL 31.2-35 H RDW-SD (test code = 95505-3) 37.9 fL 38.5-51.6 L RDW-CV (test code = 788-0) 12.4 % 12.1-15.4 PLT (test code = 777-3) See_Comment [Automated messa ge] The system which generated this result transmitted reference range: 150 - 328 10*3/?L. The reference range was not used to interpret this result as normal/abnormal. MPV (test code = 72955-7) 9.7 fL 9.8-13 L NRBC/100 WBC (test code = 2628383851) See_Comment [Automated Cat Amania ssage] The system which generated this result transmitted reference range: 0.0 - 10.0 /100 WBCs. The reference range was not used to interpret this result as normal/abnormal. NRBC x10^3 (test code = 9510272529) <0.01 See_Comment [Automated messa ge] The system which generated this result transmitted reference range: 10*3/?L. The reference range was not used to interpret this result as normal/abnormal. GRAN MAT (NEUT) % (test code = 770-8) 36.7 % IMM GRAN % (test code = 8464193280) 0.10 % LYMPH % (test code = 736-9) 50.9 % MONO % (test code = 5905-5) 11.1 % EOS % (test code = 713-8) 0.8 % BASO % (test code = 706-2) 0.4 % GRAN MAT x10^3(ANC) (test code = 4878738095) 2.59 10*3/uL 1.99-6.95 IMM GRAN x10^3 (test code = 1629769875) <0.03 0-0.06 LYMPH x10^3 (test code = 731-0) 3.61 10*3/uL 1.09-3.23 H MONO x10^3 (test code = 742-7) 0.79 10*3/uL 0.36-1.02 EOS x10^3 (test code = 711-2) 0.06 10*3/uL 0.06-0.53 BASO x10^3 (test code = 704-7) 0.03 10*3/uL 0.01-0.09 Lab Interpretation (test code = 37054-5) Abnormal [facility] History and Physical Notes Date/Time Note Provider [...] 220). On a 12/2022 hospital stay at [facility], he was diagnosed with an idiopathic chronic pancreatitis and was placed on Creon for his diarrhea. He has been using Creon, but does not feel that it helps much with his intermittent loose stools. He tells me that he is been completely sober since about 2016, but does have a previous heavy alcohol [...] by mouth daily. 90 tablet 1 Pancrelipase, Nmv-Gpss-Yfrg, (Creon) 54[address]-[address] Particles Take 1 [...] He was getting medicinal marijuana while in [place] Sexual activity: Yes Partners: Male ROS: 06/27 [...] All questions were answered. Gibran Mcadams MD [facility] Notes Date/Time Note Provider Source [...] distress. Left with . Caty Pang RN [facility] 2024-04-02 08:35:20 Pt arrives with c/o upper abd pain, pt states known hx pancreatitis, had recent labs and lipase elevated. Pain present for one week, worsening last 2 days. Phone punch operator recommended coming to ER. Pt has been hospitalized for this. NTINOT Aminta Novoa RN [facility] 2024-03-30 08:10:34 Chief Complaint Patient presents with Consultation Yosi Dos Santos LVN [facility] 2024-02-20 23:53:18 Pt given printed and [...] in no apparent distress. Carol Siddiqui RN [facility] 2024-02-20 21:42:07 Pt arrived ambulatory with complaints of abdominal pain and constipation x4 days. Pt reports hx of pancreatitis but has been out of Creon prescription for a while. Debora Bhatti RN [facility] 2023-12-09 23:47:26 Pt discharged with diagnosis of lumbar radiculopathy. Printed and verbal instructions reviewed with and given to pt. Prescriptions given x 2. Pt verbalized understanding of teaching, medication, and recommended follow-up. Denies questions or concerns at this time. Pt ambulatory at discharge. Appears in no apparent distress. No ataxia noted. Accompanied by family. Shira Brumfield RN [facility] 2023-12-09 20:10:35 CC: Pt reports left sided [...] amb with steady gait Carol Wu RN [facility] 2023-12-09 19:46:00 [facility] Emergency Department Note Patient Name: Noah Putnam Date of : 1970 53 year old male Treatment Room: 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 As a result of said fall, pt developed chronic recurrent low back pain. No fever or chills. No cauda equina symptoms History provided by: Patient and medical records analytical scientist used: No Difficulty Urinating Presenting symptoms: no [...] History: Past Surgical History: Procedure Laterality Date OK FOREARM OR WRIST SURGERY Left Review of [...] 0.01 - 0.09 10*3/uL COMP. METABOLIC PANEL (25869) - Abnormal NA 141 135 - 145 [...] CONTRAST Cbc with Diff Comp. Metabolic Panel (72708) Urinalysis Orders Placed This Encounter Medications ketorolac [...] -- ED COURSE Diagnosis/Impression as of 12/09/23 9853 Hematuria of unknown cause Lumbar radiculopathy Procedures: [...] hours as needed (Abdominal pain or cramping). [id number] (CREON) 3,000-9,500- 15,000 UNIT CAPSULE Take 1 [...] Brennan MD Relationship: PCP - General Fabienne [address] [place] [phone] Amrik Graham MD Specialty: ORT-ORTHOPAEDIC SURGERY [address] [facility] [phone] Electronically signed by: Abraham Orantes MD 12/09/232306 [facility] 2023-10-06 14:20:14 Chief Complaint Patient presents with New Patient Blood Pressure the patient States he will bring in all his meds the next ov [facility] 2023-07-23 07:15:00 [facility] ([facility]) EMERGENCY PROVIDER REPORT REPORT#:[id number] REPORT STATUS: Signed DATE:07/23/23 TIME: 714 PATIENT: NOAH PUTNAM UNIT #: [id number] ROOM/BED: AGE: 52 SEX: M PCP PHYS: DOES_NOT KNOW SERVICE AUTHOR: Tracy Hall MD R1 LOCATION: [facility] * ALL edits or amendments must be [...] showed that the patient was seen in [place] ED on 07/11 where CT AP was negative for gallbladder, biliary, pancreatic and GI disease. Patient sees a GI doctor at [facility] and is in the process of [...] Diagnostics Lab Results Interpretation Results Laboratory Tests 07/23/23535: [Embedded Image Not Available] Laboratory Tests: 07/23 536 Chemistry Sodium (137 - [...] # (Auto) (1.0 - 3.8 K/mm3) 2.61 [place] # (Auto) (0.1 - 0.8 K/mm3) 0.68 Eos # (Auto) (0.0 - 0.2 K/mm3) 0.04 Baso # (Auto) (0.0 - 0.2 K/mm3) 0.02 Nucleated RBCs # (Man) (0.0 - 0.1 K/mm3) 0.00 Urines Urine Color (YELLOW) YELLOW Urine Appearance (CLEAR) CLEAR Urine pH (5.0 - 9.0) 6.0 Ur Specific [place] (1.003 - 1.030) 1.025 Urine Protein (NEGATIVE [...] in the ED, and will go see [facility] in [place] after discharge. We will send Norflex, Bentyl, and Toradol to his home pharmacy. Instructed to return to the ED if symptoms worsen. Patient reports understanding and agrees with the treatment plan. Time of Re-Eval 906 )( Re-Eval Status Unchanged ED Course Medication(s) [...] Referrals Provider Referral: Karina Nascimento MD Address: [id number] [place] [address] Provider Referral: Peter Pérez MD Address: [address] [place] [address] Provider Referral: Adebayo Bagley TIME RECORDER Address: [address] [place] [address] Provider Referral: Carola Brooks TIME RECORDER Address: [address] [place] [address] Provider Referral: Mary Ibarra MD Address: [address] [place] [address] Provider Referral: Woody Roman TIME RECORDER Address: [address] [place] [address]. [address] [place] [address] Supervising Physician Note Resident Saw Pt This [...] for patient's abdominal pain. Patient called his lead material handler for which she is going to another hospital but the GI works at to be admitted for further care and evaluation. Discussed no indication for admission at this facility which patient understands and agrees with plan. Patient is discharged home with analgesia antiemetics at 1039 at 1048 RPT #:[id number] END OF REPORT [facility] 2023-07-23 05:32:00 [facility] ([facility]) EMERGENCY PROVIDER REPORT REPORT#:[id number] REPORT STATUS: Signed DATE:07/23/23 TIME: 0532 PATIENT: NOAH PUTNAM UNIT #: [id number] ROOM/BED: AGE: 52 SEX: M PCP PHYS: SERVICE DT: AUTHOR: Rita Ashford LOCATION: [facility] * ALL edits or amendments must be [...] History Left wrist surgery at 0533 RPT #:[id number] END OF REPORT [facility] 2023-07-01 23:26:00 [id number] [place], [place] PATIENT NAME: NOAH PUTNAM ADMIT DATE: 07/01/23 ACCOUNT NO: [id number] ROOM NO: AGE: 52 REPORT TYPE: ELECTROCARDIOGRAM SEX: M : 74 ADMITTING PHYSICIAN: ATTENDING PHYSICIAN:Jessie Gleason DO Order: [id number] Test Reason : abdominal pain Test Date/Time [...] available Confirmed by JESSIE GLEASON DO ([id number]), marketing editor MARCIA GALVEZ ([id number]) on 07/20/2023 3:03:25 PM Referred By: Self Referred Confirmed by:JESSIE GLEASON DO at 1503 PATIENT NAME: NOAH PUTNAM [facility] 2023-07-01 23:22:00 [facility] ([facility]) OR A [facility] EMERGENCY PROVIDER REPORT REPORT#:[id number] REPORT STATUS: Signed DATE:07/01/23 TIME: 2321 PATIENT: NOAH PUTNAM UNIT #: [id number] ROOM/BED: AGE: 52 SEX: M PCP PHYS: Undefined Provider SERVICE AUTHOR: Jessie Gleason DO * ALL edits or amendments must be made on the electronic/computer document * HPI-Abd Pain M 40 and Over General Confirmed Patient Yes Patient Type New patient Initial Greet Date/Time 07/01/232301 Presentation Chief Complaint Abdominal pain Sudden in [...] care urgent care and was referred to [facility]. Patient states that he went to [facility] and was discharged with tramadol after [...] % (Auto) (24 - 44 %) 41.1 [place] % (Auto) (0.0 - 4.0 %) 7.4 [...] .STK-MED ONE 07/01 2330 DC 07/01 IV 234 Iopamidol 0 .STK-MED ONE [...] )( Discharged to Home Yes )( Time 4 )( Date 07/02/23 Discharge/Care Plan Counseled Regarding [...] Tobacco Screening/Cessation Denies tobacco use at 0109 [facility] #:[id number] END OF REPORT [facility] 2023-05-20 15:08:22 Formatting of this n ote is different from the original. Chief Complaint Patient presents with Consultation Andreia Regalado CMA I [facility] 2023-05-07 23:22:46 Formatting of this n ote might be different from the original. Discharge instructions reviewed with patient. Follow up care discussed. All questions answered by RN. Patient ambulatory to [facility]. Patient in possession of all belongings. RR even and unlabored, VSS, NAD noted. Steffanie Easley RN [facility] 2023-05-07 23:01:52 Formatting of this n ote might be different from the original. DC hold for fluid admin. T [facility] 2023-05-07 22:51:08 Formatting of this n ote might be different from the original. This RN chaperoned DO for rectal exam. T [facility] 2023-05-07 20:30:00 Formatting of this n ote [...] Patient reports he was seen at the [facility] a few days ago and [...] RR even and unlabored. VSS. NAD noted. [facility] 2023-05-07 17:35:38 Formatting of this n ote might be different from the original. Noah Putnam is a 52 year old male presenting to ED with c/o abd pain. Patient reports hx of pancreatitis. Patient reports began having blood in stool today. Patient to green chairs due to ED saturation Helene Newell RN [facility] 2023-05-02 00:32:03 Formatting of this n ote [...] and in no distress. Marcelo Tsai RN [facility] 2023-05-01 21:28:00 Formatting of this n ote [...] in the sun today." Lelo Carbajal RN [facility] 2023-04-22 13:03:22 Formatting of this n ote [...] given in ER noted upon discharge PIV thomas'valentino dressing to site, catheter in tact. Awake, alert oriented, resp reg unlabored, skin w/d, pt leaving in no apparent distress, Jacki Rodriguez RN [facility] 2023-04-22 10:35:21 Formatting of this n ote might be different from the original. Patient ate some potatoes from meal tray, states stomach began to cramp. Patient provided juice, states that his boss is going to being him some food that he will also try but states stomach is cramping. Caty Pang RN [facility] 2023-04-22 10:28:09 Formatting of this n ote might be different from the original. Patient provided meal tray. [facility] 2023-04-22 10:18:30 Formatting of this n ote might be different from the original. Patient encouraged to eat, advised of plan of care. [facility] 2023-04-22 06:30:24 Formatting of this n ote might be different from the original. Second liter of fluids completed, pt states he is still unable to urinate, RN gave pt a urinal and encouraged pt to try, pt stated that he will but he does not feel like going yet. Carol Siddiqui RN [facility] 2023-04-22 05:20:00 Formatting of this n ote might be different from the original. Pt walked to the bathroom, cannot void. Provider informed, orders received T [facility] 2023-04-22 03:56:00 Formatting of this n ote [...] amb with steady gait Carol Wu RN [facility] 2023-04-22 03:50:00 Formatting of this n ote [...] infusion 1,000 mL (0 mL Intravenous Stopped 04/22/234) NaCl 0.9% (NS) bolus infusion 1,000 mL (0 mL IV Infusion Stopped 04/22/23 0528) metoclopramide HCl (REGLAN) injection 10 mg (10 mg Slow IV Push Given 04/22/23420) ketorolac (TORADOL) injection 30 mg (30 mg Slow IV Push Given 04/22/23420) diphenhydrAMINE (BENADRYL) injection 25 mg (25 mg Slow IV Push Given 04/22/23420) NaCl 0.9% (NS) bolus infusion 1,000 mL (0 mL IV Infusion Stopped 04/22/2330) maalox:diphenhydrAMINE:lidoca ine 2 % viscous 1:1:1 (FIRST-MOUTHWASH BLM) oral suspension 15 mL (15 mL Oral Given 04/22/23 0755) NaCl 0.9% (NS) bolus infusion 500 mL (500 mL IV Infusion New Bag 04/22/2344) haloperidol lactate (HALDOL) injection 2.5 mg (2.5 [...] components within normal limits COMP. METABOLIC PANEL (71309) - Abnormal; Notable for the following components: [...] pancreatitis type Natali Alexander DO 04/22/23 1238 T [facility] 2023-04-16 08:49:36 Formatting of this n ote [...] complaining about the service. Rachana Pratt RN [facility] 2023-04-16 08:17:00 Formatting of this n ote might be different from the original. This RN and Provider at bedside. Provider explaining to pt that some of his pain could be due to being constipated, images showed pt is constipated. [facility] 2023-04-16 07:56:11 Formatting of this n ote might be different from the original. Pt returns from X-ray, NAD noted, family remains at bedside. T [facility] 2023-04-16 07:41:37 Formatting of this n ote might be different from the original. Pt transported to X-ray via [facility] transport. T [facility] 2023-04-16 07:20:37 Formatting of this n ote [...] bedside. Provider and this RN at bedside. [facility] 2023-04-16 07:08:22 Formatting of this n ote might be different from the original. Noah Putnam is a 52 year old male presenting to ED with c/o abd pain. Patient reports pain for a few weeks. Patient reports was recently seen and diagnosed with pancreatitis. Patient endorses pain to abd and radiates to back. Patient to room for further eval Helene Newell RN [facility] 2023-04-16 06:46:00 Formatting of this n ote is different from the original. 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 METABOLIC PANEL (54897) - Abnormal NA 142 135 - 145 [...] VW CBC WITH DIFF COMP. METABOLIC PANEL (98292) LIPASE TROPONIN I Orders Placed This Encounter Medications NaCl 0.9% (NS) bolus infusion 1,000 mL ketorolac (TORADOL) injection 30 mg dicyclomine (BENTYL) injection 20 mg famotidine (PEPCID (PF)) injection 20 mg lactulose (CEPHULAC) solution 45 mL jhptod-ggvdrjmv-siwuknn (CREON) 12,000-38,000 -60,000 unit capsule 2 capsule enalaprilat (VASOTEC I.V.) injection 1.25 mg yljkks-nadomtjv-qdpjyrj (CREON) 3,000-9,500- 15,000 unit capsule hyoscyamine sulfate [...] hours as needed (Abdominal pain or cramping). FHLOCF-ZXOZBVJT-VPIFKKE (CREON) 3,000-9,500- 15,000 UNIT CAPSULE Take 1 [...] signed by: Adelaide Goodwin MD 04/16/23 0850 [facility] 2023-04-01 03:22:04 Formatting of this n ote [...] in no apparent distress. Lelo Carbajal RN [facility] 2023-04-01 00:02:06 Formatting of this n ote might be different from the original. History of chronic pancreatitis. Mid upper abdominal pain for 4 days. Complaining of oily stool. Vomited x2. Anuradha Nolen RN [facility]
--- NOTE | 2024-05-13 22:37 | RAD REPORT ---
EXAM DESCRIPTION: RAD - Chest Single View - 05/13/2024 10:31 pm CLINICAL HISTORY: upper abdomen pain Chest pain. COMPARISON: Chest Single View dated 04/21/2024; Chest Single View dated 03/08/2024; Chest Pa And Lat (2 Views) dated 08/20/2023; Chest Single View dated 04/05/2023; Chest Single View dated 10/20/2022 FINDINGS: Portable technique limits examination quality. The lungs are grossly clear. The heart is normal in size. No displaced fractures. IMPRESSION: No acute intrathoracic process suspected.
[2024-05-13] MEDS ORDERED: ONDANSETRON 4 MG/2 ML VIAL ONE (22:59)
[2024-05-13] MEDS ORDERED: MORPHINE 4 MG/ML SYR ONE (22:59)
[2024-05-13] MEDS ORDERED: NA CHLORIDE 0.9% 1,000 ML ONE (23:00)
[2024-05-14 00:02] LABS: Absolute Eosinophils 0.1 K/uL (0-0.5); Absolute Lymphocytes (CBC) 2.5 K/uL (0.7-4.9); Absolute Monocytes 0.6 K/uL (0.1-1.3); Absolute Neutrophil 2.9 K/uL (1.8-8.0); Basophils % 0.8 % (0-1.3); Eosinophils % 1.5 % (0-4.4); Hematocrit 42.9 % (39.6-49.0); Hemoglobin 14.2 g/dL (13.6-17.9); Lymphocytes % 40.3 % (15.3-44.8); MCH 29.5 pg (27.0-35.0); MCHC 33.2 g/dL (32.0-36.0); MCV 88.8 fL (80-100); MPV 8.2 fL (7.6-11.3); Monocytes % 10.3 % (3.3-12.3); Neutrophils % 47.1 % (41.7-73.7); Platelets 239 thou/uL (152-406); RBC Red Blood Cell Count 4.83 M/uL (4.33-5.43); Red Cell Distribution Width 13.8 % (12.1-15.2)
[2024-05-14 00:21] LABS: ALT/SGPT 32 U/L (16-61); Albumin 3.8 g/dL (3.4-5.0); Albumin/Globulin Ratio 0.8 (1.1-1.8); Alkaline Phosphatase 62 U/L (45-117); Anion Gap 7.2 mEq/L (5.0-15.0); BUN Blood Urea Nitrogen 18 mg/dL (7-18); Bicarbonate 28 mEq/L (21-32); Bilirubin Total 0.4 mg/dL (0.2-1.0); Globulin 4.5 g/dL (2.3-3.5); Glomerular Filtration Rate 73 ml/min (=/>90); Glucose Level 122 mg/dL (74-106); Lipase 44 U/L (13-75); Protein, Total 8.3 g/dL (6.4-8.2); Sodium Level 138 mEq/L (136-145); Troponin High Sensitivity 4.2 pg/mL (<58.9)
[2024-05-14 00:26] LABS: AST/SGOT 24 U/L (15-37); Bilirubin Direct < 0.2 mg/dL (0-0.2); Bilirubin Indirect, Calculated 0.2 mg/dL (0.2-0.8); Magnesium 1.9 mg/dL (1.6-2.4); Potassium 4.2 mEq/L (3.5-5.1)
--- NOTE | 2024-05-14 01:51 | ER ---
Nurse's Notes [facility] Name: Noah Putnam Age: 53 yrs Sex: Male : 1970 Arrival Date: 05/13/2024 Time: 21:05 Bed 7 Private MD: Diagnosis: Cough;Nausea with vomiting, unspecified;Upper abdominal pain, unspecified Presentation: 05/13 22:17 Chief complaint: Patient states: throwing up for two days. LUQ pain. Chest congestion. tm6 Coronavirus screen: Vaccine status: Patient reports receiving the 2nd dose of the covid vaccine. Ebola Screen: Patient negative for fever greater than or equal to 101.5 degrees Fahrenheit, and additional compatible Ebola Virus Disease symptoms Patient denies exposure to infectious person. Patient denies travel to an Ebola-affected area in the 21 days before illness onset. No symptoms or risks identified at this time. Initial Sepsis Screen: Does the patient meet any 2 criteria? No. Patient's initial sepsis screen is negative. Does the patient have a suspected source of infection? No. Patient's initial sepsis screen is negative. Risk Assessment: Do you want to hurt yourself or someone else? Patient reports no desire to harm self or others. Onset of symptoms was May 11, 2024. 22:17 Method Of Arrival: Ambulatory tm6 22:17 Acuity: BREEZY 3 tm6 Triage Assessment: 22:18 General: Appears in no apparent distress. uncomfortable, Behavior is calm, cooperative. tm6 Pain: Complains of pain in body aches. EENT: Reports nasal congestion nasal discharge. Neuro: Level of Consciousness is awake, alert, obeys commands, Oriented to person, place, time, situation. Cardiovascular: Patient's skin is warm and dry. Respiratory: Reports cough that is Airway is patent Respiratory effort is even, unlabored. GI: Abdomen is flat, non-distended, Reports lower abdominal pain, upper abdominal pain, diarrhea, nausea, vomiting. : No signs and/or symptoms were reported regarding the genitourinary system. Derm: No signs and/or symptoms reported regarding the dermatologic system. Musculoskeletal: No signs and/or symptoms reported regarding the musculoskeletal system. Historical: - Allergies: 22:18 amlodipine; tm6 22:18 Bee Venom; tm6 22:18 Lisinopril; tm6 - PMHx: 22:18 chronic kidney disease; Chronic Pancreatitis; Herniated disc; Hypertension; tm6 - PSHx: 22:18 left arm surgery; tm6 - Immunization history:: Client reports receiving the 2nd dose of the Covid vaccine. - Infectious Disease History:: Denies. - Social history:: Smoking status: Patient denies any tobacco usage or history of. Patient/guardian denies using. Screenin:15 [facility] ED Fall Risk Assessment (Adult) History of falling in the last 3 months, mt4 including since admission No falls in past 3 months (0 pts) Confusion or Disorientation No (0 pts) Intoxicated or Sedated No (0 pts) Impaired Gait No (0 pts) Mobility Assist Device Used No (0 pt) Altered Elimination No (0 pt) Score/Fall Risk Level 0 - 2 = Low Risk. Abuse screen: Denies injuries from another. Nutritional screening: No deficits noted. Tuberculosis screening: No symptoms or risk factors identified. Exposure risk/Travel Screening: None identified. 05/14 02:50 [facility] ED Fall Risk Assessment (Adult). mt4 Assessment: 05/13 23:15 General: Appears in no apparent distress. comfortable, Behavior is calm, cooperative, mt4 appropriate for age. Pain: Complains of pain in abdomen Pain does not radiate. Pain currently is 7 out of 10 on a pain scale. Quality of pain is described as burning, aching, tender, Pain began 2-3 days ago. Is intermittent. Neuro: Level of Consciousness is awake, alert, obeys commands, Oriented to person, place, time, situation. Cardiovascular: Capillary refill < 3 seconds. Respiratory: Airway is patent. GI: Abdomen is round Abdomen is tender to palpation. : Denies burning with urination. Derm: Skin is intact, Skin is dry, Skin is pink, warm \T\ dry. Skin temperature is warm. Musculoskeletal: Capillary refill < 3 seconds, Range of motion: intact in all extremities. 05/14 02:50 General: Appears in no apparent distress. comfortable, Behavior is calm, cooperative, mt4 appropriate for age. Pain: Denies pain. Neuro: Level of Consciousness is awake, alert, obeys commands, Oriented to Planning Specialist are equal bilaterally Gait is steady, Speech is normal, Facial symmetry appears normal. Cardiovascular: Capillary refill < 3 seconds. Respiratory: Airway is patent. GI: Abdomen is round Abdomen is tender to palpation. : Denies burning with urination. Musculoskeletal: No deficits noted. Capillary refill < 3 seconds, Range of motion: intact in all extremities. 03:16 Reassessment: Patient and/or family updated on plan of care and expected duration. Pain mt4 level reassessed. Patient is alert, oriented x 3, equal unlabored respirations, skin warm/dry/pink. General: Appears in no apparent distress. comfortable, Behavior is calm, cooperative, appropriate for age. Neuro: Level of Consciousness is awake, alert, obeys commands, Oriented to person, place, time, situation. Vital Signs: 05/13 22:16 Pulse 78; Resp 20; Temp 98.3; Pulse Ox 100% on R/A; Weight 121.11 kg; Height 6 ft. 5 tm6 in. ; Pain 6/10; 22:17 BP 142 / 94; tm6 23:14 BP 138 / 88; Pulse 69; Resp 20 S; Temp 97.8(O); Pulse Ox 99% on R/A; Pain 7/10; mt4 05/14 00:00 BP 145 / 97; Pulse 79; Resp 18 S; Pulse Ox 97% on R/A; mt4 01:00 BP 128 / 88; Pulse 71; Resp 16; Pulse Ox 98% ; mt4 02:00 BP 131 / 90; Pulse 73; Resp 18; Pulse Ox 98% on R/A; mt4 02:14 BP 131 / 90; Pulse 86; Resp 22 S; Temp 98.6; Pulse Ox 99% on R/A; Height 8 ft. 0 in. ; mt4 02:50 BP 149 / 99; Pulse 79; Resp 16 S; Temp 97.8(O); Pulse Ox 98% on R/A; mt4 05/13 22:16 Body Mass Index 31.66 (121.11 kg, 243.84 cm) tm6 05/13 22:16 Pain Scale: Adult tm6 23:14 Pain Scale: Adult mt4 Mary Coma Score: 05/13 23:15 Eye Response: spontaneous(4). Motor Response: obeys commands(6). Verbal Response: mt4 oriented(5). Total: 15. 05/14 02:50 Eye Response: spontaneous(4). Motor Response: obeys commands(6). Verbal Response: mt4 oriented(5). Total: 15. 03:16 Eye Response: spontaneous(4). Motor Response: obeys commands(6). Verbal Response: mt4 oriented(5). Total: 15. ED Course: 05/13 21:09 Patient arrived in ED. gm2 21:12 Jimbo Galvan PA is PHCP. cp 21:12 Andrew Hernandez MD is Attending Physician. cp 22:18 Triage completed. tm6 22:19 Arm band placed on right wrist. tm6 22:33 XRAY Chest (1 view) In Process Unspecified. EDMS 23:08 Chelo Lira, RN is Primary Nurse. mt4 23:15 No apparent distress. Resting quietly. Awaiting lab results. mt4 23:15 Allergy band placed. Bed in low position. Call light in reach. Side rails up X 1. mt4 Provided Education on: fall education, pain medication education . Client placed on continuous cardiac and pulse oximetry monitoring. NIBP monitoring applied. patient monitor on. Pulse ox on. Door closed. Lights dimmed. Warm blanket given. Pillow given. Head of bed elevated. Assisted with urinal. 23:15 No provider procedures requiring assistance completed. Inserted saline lock: 20 gauge mt4 in right antecubital area, using aseptic technique. Blood collected. Flushed with 10 mL NS. Patient maintains SpO2 saturation greater than 95% on room air. 23:23 EKG done, by ED staff. af3 05/14 00:54 CT Abd/Pelvis - IV Contrast Only In Process Unspecified. EDMS 02:50 IV discontinued, intact, bleeding controlled, No redness/swelling at site. Pressure mt4 dressing applied. Patient maintains SpO2 saturation greater than 95% on room air. 03:16 No apparent distress. Resting quietly. mt4 03:16 Allergy band placed. Bed in low position. Call light in reach. Side rails up X 1. mt4 Client placed on continuous cardiac and pulse oximetry monitoring. NIBP monitoring applied. patient monitor on. Pulse ox on. Door closed. Lights dimmed. Warm blanket given. Pillow given. Verbal reassurance given. Head of bed elevated. Administered Medications: 05/13 23:37 Drug: morphine IVP or IV 4 mg IVP once over 4 mins Route: IVP; Infused Over: 4 mins; mt4 Site: right antecubital; 05/14 00:39 Follow up: Response: No adverse reaction mt4 05/13 23:37 Drug: Ondansetron IVP 4 mg IVP once; over 2 minutes Route: IVP; Site: right antecubital;mt4 05/14 00:39 Follow up: Response: No adverse reaction mt4 00:39 Follow up: Response: No adverse reaction mt4 05/13 23:37 Drug: NS 0.9% IV 1000 ml IV at 1 bolus Per protocol; 1000 mL bolus Route: IV; Rate: 1 mt4 bolus; Site: right antecubital; 05/14 00:38 Follow up: IV Status: Completed infusion; IV Intake: 1000ml mt4 00:39 Follow up: Response: No adverse reaction mt4 02:13 Drug: GI Cocktail without - (Maalox PO 30 ml, Lidocaine Mucous Membrane 2 % 15 mt4 ml) PO once Route: PO; 03:00 Follow up: Response: No adverse reaction mt4 02:13 Drug: morphine IVP or IV 4 mg IVP once over 4 mins Route: IVP; Infused Over: 4 mins; mt4 Site: right antecubital; 03:00 Follow up: Response: No adverse reaction mt4 Medication: 05/13 23:15 VIS not applicable for this client. mt4 Intake: 05/14 00:38 IV: 1000ml; Total: 1000ml. mt4 Outcome: 01:50 Discharge ordered by . cp 03:09 Condition: stable mt4 03:09 Discharge instructions given to patient, Instructed on discharge instructions, follow up and referral plans. safety practices, Demonstrated understanding of instructions, follow-up care, medications, Prescriptions given X 2, 03:09 Discharged to home ambulatory, mt4 03:10 Patient left the ED. mt4 Signatures: Dispatcher [employer] EDMS Jimbo Galvan PA PA cp Mitchell, Ginger gm2 Adrienne Ryan RN RN tm6 Chelo Lira RN RN mt4 Rabia Vera3 Corrections: (The following items were deleted from the chart) 05/13 22:20 22:17 Acuity: BREEZY 4 tm6 tm6
--- NOTE | 2024-05-14 01:52 | EDPHYS ---
Physician Documentation [facility] Name: Noah Putnam Age: 53 yrs Sex: Male : 1970 Arrival Date: 05/13/2024 Time: 21:05 Bed 7 Private MD: ED Physician Andrew Hernandez HPI: 05/14 01:41 This 53 yrs old Black Male presents to ER via Ambulatory with complaints of Flu cp Symptoms, Chest Congestion, Fever, Pain All Over. Historical: - Allergies: 05/13 22:18 amlodipine; tm6 22:18 Bee Venom; tm6 22:18 Lisinopril; tm6 - PMHx: 22:18 chronic kidney disease; Chronic Pancreatitis; Herniated disc; Hypertension; tm6 - PSHx: 22:18 left arm surgery; tm6 - Immunization history:: Client reports receiving the 2nd dose of the Covid vaccine. - Infectious Disease History:: Denies. - Social history:: Smoking status: Patient denies any tobacco usage or history of. Patient/guardian denies using. Vital Signs: 22:16 Pulse 78; Resp 20; Temp 98.3; Pulse Ox 100% on R/A; Weight 121.11 kg; Height 6 ft. 5 tm6 in. ; Pain 6/10; 22:17 BP 142 / 94; tm6 23:14 BP 138 / 88; Pulse 69; Resp 20 S; Temp 97.8(O); Pulse Ox 99% on R/A; Pain 7/10; mt4 05/14 00:00 BP 145 / 97; Pulse 79; Resp 18 S; Pulse Ox 97% on R/A; mt4 01:00 BP 128 / 88; Pulse 71; Resp 16; Pulse Ox 98% ; mt4 02:00 BP 131 / 90; Pulse 73; Resp 18; Pulse Ox 98% on R/A; mt4 02:14 BP 131 / 90; Pulse 86; Resp 22 S; Temp 98.6; Pulse Ox 99% on R/A; Height 8 ft. 0 in. ; mt4 02:50 BP 149 / 99; Pulse 79; Resp 16 S; Temp 97.8(O); Pulse Ox 98% on R/A; mt4 05/13 22:16 Body Mass Index 31.66 (121.11 kg, 243.84 cm) tm6 05/13 22:16 Pain Scale: Adult tm6 23:14 Pain Scale: Adult mt4 Mary Coma Score: 05/13 23:15 Eye Response: spontaneous(4). Motor Response: obeys commands(6). Verbal Response: mt4 oriented(5). Total: 15. 05/14 02:50 Eye Response: spontaneous(4). Motor Response: obeys commands(6). Verbal Response: mt4 oriented(5). Total: 15. 03:16 Eye Response: spontaneous(4). Motor Response: obeys commands(6). Verbal Response: mt4 oriented(5). Total: 15. MDM: 05/13 22:20 Patient medically screened. 05/13 22:22 Order name: Basic Metabolic Panel; Complete Time: 00:50 cp 05/14 00:50 Interpretation: Normal except: GLUC 122; GFR 73. 05/13 22:22 Order name: CBC with Diff; Complete Time: 00:50 05/14 00:51 Interpretation: Reviewed. 05/13 22:22 Order name: LFT's; Complete Time: 00:50 cp 05/14 00:50 Interpretation: Normal except: TP 8.3; GLOB 4.5; A/G 0.8. 05/13 22:22 Order name: Magnesium; Complete Time: 00:50 05/13 22:22 Order name: Troponin HS; Complete Time: 00:50 cp 05/13 22:22 Order name: Lipase; Complete Time: 00:50 cp 05/13 22:22 Order name: XRAY Chest (1 view); Complete Time: 23:27 cp 05/13 23:27 Interpretation: Report review. 05/13 23:28 Order name: CT Abd/Pelvis - IV Contrast Only 05/13 22:22 Order name: EKG; Complete Time: 22:22 cp 05/13 22:22 Order name: Cardiac monitoring; Complete Time: 00:22 cp 05/13 22:22 Order name: EKG - Nurse/Tech; Complete Time: 23:23 cp 05/13 22:22 Order name: IV Saline Lock; Complete Time: 00:22 cp 05/13 22:22 Order name: Labs collected and sent; Complete Time: 00:22 cp 05/13 22:22 Order name: O2 Per Protocol; Complete Time: 00:22 cp 05/13 22:22 Order name: O2 Sat Monitoring; Complete Time: 00:22 cp 05/14 01:40 Order name: PO challenge; Complete Time: 02:13 cp Administered Medications: 23:37 Drug: morphine IVP or IV 4 mg IVP once over 4 mins Route: IVP; Infused Over: 4 mins; mt4 Site: right antecubital; 05/14 00:39 Follow up: Response: No adverse reaction mt4 05/13 23:37 Drug: Ondansetron IVP 4 mg IVP once; over 2 minutes Route: IVP; Site: right antecubital;mt4 05/14 00:39 Follow up: Response: No adverse reaction mt4 00:39 Follow up: Response: No adverse reaction mt4 05/13 23:37 Drug: NS 0.9% IV 1000 ml IV at 1 bolus Per protocol; 1000 mL bolus Route: IV; Rate: 1 mt4 bolus; Site: right antecubital; 05/14 00:38 Follow up: IV Status: Completed infusion; IV Intake: 1000ml mt4 00:39 Follow up: Response: No adverse reaction mt4 02:13 Drug: GI Cocktail without - (Maalox PO 30 ml, Lidocaine Mucous Membrane 2 % 15 mt4 ml) PO once Route: PO; 03:00 Follow up: Response: No adverse reaction mt4 02:13 Drug: morphine IVP or IV 4 mg IVP once over 4 mins Route: IVP; Infused Over: 4 mins; mt4 Site: right antecubital; 03:00 Follow up: Response: No adverse reaction mt4 Disposition: 05:47 Co-signature as Attending Physician, Andrew Hernandez MD I agree with the assessment sp4 and plan of care. I reviewed the patient's care provided by the Advanced Practice Provider and agree with the diagnosis and treatment plan. Disposition Summary: 05/14/24 01:50 Discharge Ordered Notes: Location: Home cp Problem: new cp Symptoms: have improved cp Condition: Stable cp Diagnosis - Cough cp - Nausea with vomiting, unspecified cp - Upper abdominal pain, unspecified cp Followup: cp - With: Private Physician - When: 2 - 3 days - Reason: Recheck today's complaints Discharge Instructions: - Discharge Summary Sheet cp - Abdominal Pain, Adult cp - Nausea and Vomiting, Adult cp - Cough, Adult cp Forms: - Medication Reconciliation Form cp - Antibiotic Education cp - Prescription Opioid Use cp - Patient Portal Instructions cp - Leadership Thank You Letter cp Prescriptions: - Protonix 40 mg Oral Tablet - take 1 tablet ORAL route once daily; 30 tablet; Refills: 0, Product Selection cp Permitted - ondansetron 8 mg Oral Tablet,disintegrating - take 1 tablet ORAL route every 12 hours; 20 tablet; Refills: 0, Product cp Selection Permitted Signatures: Dispatcher [employer] EDID Jimbo Galvan PA PA cp Potepalov, Sergey, MD MD sp4 Adrienne Ryan RN RN tm6 Chelo Lira RN RN mt4
[2024-05-14] MEDS ORDERED: MAGNES/ALUMIN/SIMET 30ML UCUP ONE (02:02)
[2024-05-14] MEDS ORDERED: MORPHINE 4 MG/ML SYR ONE (02:03)
[2024-05-14] MEDS ORDERED: LIDOCAINE VISCOUS 2% 10ML ORAL SOLN ONE (02:03)
[2024-05-14 03:25] VITALS: BP 149/99; TEMP 97.8; O2SAT 98
--- NOTE | 2024-05-14 13:58 | EKG ---
Test Date: 2024-05-13 Test Time: 23:13:54 Multifocal Button Inspector: AF MEASUREMENT RESULTS: Intervals: Rate: 65 MO: 178 QRSD: 72 QT: 378 QTc: 393 Inlet: P: 59 MO: 178 QRS: 30 T: 25 INTERPRETIVE STATEMENTS: Normal sinus rhythm Normal ECG Compared to ECG 04/21/2024 23:43:48 No significant changes Electronically Signed On 05-14-24 13:57:30 CDT by Elias Lee
--- NOTE | 2024-05-16 11:14 | RAD REPORT ---
EXAM DESCRIPTION: CT - Abdomen Pelvis W Contrast - 05/14/2024 6:39 am CLINICAL HISTORY: Left upper abdominal pain. COMPARISON: CT Abdomen Pelvis 04/08/2024. TECHNIQUE: CT ABDOMEN PELVIS WITH IV CONTRAST on 05/13/2024 11:28 PM CDT This exam was performed according to our departmental dose-optimization program, which includes autom ated exposure control, adjustment of the mA and/or kV according to patient size and/or use of iterati ve reconstruction technique. FINDINGS: Lower lungs are clear. Abdomen: The liver is normal in appearance. There is no biliary dilatation. Gallbladder is normal in appearance. The pancreas and spleen are normal in appearance. The adrenal glands and kidneys are unre markable. Abdominal aorta is normal in course and caliber without aneurysm. There is no free air. There is no r etroperitoneal adenopathy. Pelvis: There is no bowel obstruction. Urinary bladder is unremarkable. There is no free fluid. Appen gee is normal. Skeleton: There are no acute osseous findings. No suspicious bony lesions. IMPRESSION: No acute process. Electronically signed by: David Cunningham MD 05/14/2024 01:17 AM CDT RP Due to temporary technical issues with the PACS/Fluency reporting system, reports are being signed by the in house radiologist without review as a courtesy to ensure prompt reporting. The interpreting r adiologist is fully responsible for the content of the report.
== END 2024-05-14 03:10 | disposition home or self-care (01) ==
LOC: ER 21:05
DX: R05.9 Cough, unspecified (principal); R11.2 Nausea with vomiting, unspecified; R10.10 Upper abdominal pain, unspecified
CPT/HCPCS: 96361; 93005; 85025; 80048; 36415; 83735; 80076; 84484; 83690; 74177; 71045; 96375; 96374; 99285; Q9967; J2405; J7030

== ENCOUNTER 2024-05-25 15:02 | Emergency (ER) | payer OTHER ==
--- OUTSIDE RECORDS SUMMARY | 2024-05-25 15:13 | XMS REPORT | Continuity of Care Document ---
Author Name Unknown Address [address] [facility] [place] [place] [address] [facility] thconnect Address [address] [facility] 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 Role Phone Emily Gaines Primary Care Physician Mayuri James Attending Clinician Unavailabl HAYDEN Montemayor Attending Clinician Unavailable ADRI TAYLOR Attending Clinician Unavailable HARSHIL STYLES Attending Clinician Unavaillupillo ROBISON MD Attending Clinician Unavailab FOUZIA Ferrer Attending Clinician Unavailable GIBRAN MCADAMS Attending Clinician Unavailable BROOK ALLEN Attending Clinician Unav ailable LEANDRO MANN Attending Clinician Unava ilable LAB90 Attending Clinician Unavailable Trevor TAYLOR Attending Clinician Unavailable Trevor TAYLOR Attending Clinician Unavailable GERALD VIDAL Attending Clinician Unavailable LAB47 Attending Clinician Unavailable Karl Ferguson MD Attending Clinician + [phone] OUTSIDE, REPORTED Attending Clinician UnavailElida Patrick MD Attending Clinician [phone] LETI RIVAS Attending Clinician Unavailable LETI RIVAS Attending Clinician Unavailable ABRAHAM ORANTES Attending Clinician Unavailable Abraham Orantes MD Attending Clinician [phone] Chavez Turner DO Attending Clinician [phone] CALLIE MUNOZ Attending Clinician Unavailable CALLIE MUNOZ Attending Clinician Unavailable MERLYN HIDALGO Attending Clinician Unavailable Doctor Unassigned, [employer] Attending Clinician U navailable ADAN CHESTER Attending Clinician Unav ailable KIARA RICHARDSON Attending Clinician Unava ilable JOHNATHAN AVILA Attending Clinician Unavail able Johnathna Avila MD Attending Clinician Jessie Paul Attending [...] Clinician Unavailab Natali Glass DO Attending Clinician +[phone] ADELAIDE GOODWIN Attending Clinician Unavailable Christa ALLEN, Adelaide Attending Clinician [phone] HEMALATHA MORA Attending Clinician Unavailable Morgan COUNTRY DIRECTOR, Shinalan Attending Clinician + [phone] JESSICA GONZALES S Attending Clinician Unavailable Christian PAC, Jessica S Attending Clinician [phone] SOHAM CLARKE Attending Clinician Unavaillupillo Clarke MD, Soham Sethi Attending Clinician +[phone] Azammicah FRENCHP, Lion Attending Clinician +[phone] MARK HERNANDEZ Attending Clinician Unavailable Mark Hernandez MD Attending Clinician [phone] Ellen Carroll RN Attending Clinician + [phone] EMELIA GALLEGO Attending Clinician Unavailable Coco WALDROP, Madison Tripathi Attending Clinician [phone] Emelia Gallego DO Attending Clinician [phone] Felipe Valdivia Attending Clinician +[phone] FELIPE ORTEGA Attending Clinician Unavailable Elliot HICKS, Gabriella Richard Attending Clinician + [phone] Nurse, Adc Pob Immunization Attending Clinician Unavailable David Clarke DO Attending Clinician [phone] Nikhil Trevizo Attending Clinician [phone] NIKHIL BLANTON Attending Clinician Unavailable Pcp, Patient Does Not Have A Attending Clinician Mirna Mar RN Attending Clinician Unavailab Darnell Denny Attending Clinician + [phone] Jessy Siddiqui DO Attending Clinician +[phone] Trevor TAYLOR Admitting Clinician Unavailable ABRAHAM ORANTES [...] Clinician Unavailable Mark Hernandez MD Admitting Clinician [phone] Trevor TAYLOR Admitting Clinician Unavailable EMELIA GALLEGO Admitting Clinician Unavailable Emelia Gallego DO Admitting Clinician DARNELL HSU Admitting Clinician Unavailable Payers Payer Name Policy Type Policy Number Effective Date Expirati on Date Source NAVNEET ARREGUIN [employer] 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 Problems Condition Name Condition Details Condition Category Status Onset Date Resolution Date Last Treatment Date Treating Clinician Comments Source Well adult exam Well adult exam Disease Active 12-16 00:00: 00 Luz Maria rea Class 1 obesity due to excess calories with serious comorbidit y and body mass index (BMI) of 32.0 to 32.9 in adult Class 1 obesity due to excess calories with serious comorbidit y and body mass index (BMI) of 32.0 to 32.9 in adult Disease Active 12-16 00:00: 00 Luz Maria rea Chronic pancreatit is (multi HCC) Chronic pancreatit is (multi HCC) Disease Active 10-06 00:00: 00 [facility] Maria rea Chronic hepatitis C (multi HCC) Chronic hepatitis C (multi HCC) Disease Active 10-06 00:00: 00 Luz Maria rae Hypertensi on Hypertensi on Disease Active 10-06 00:00: 00 Luz Maria Callahana rona GERD (gastroeso phageal reflux disease) GERD (gastroeso phageal reflux disease) Disease Active 10-06 00:00: 00 Luz Maria Callahana rona BPH (benign prostatic hyperplasi a) BPH (benign prostatic hyperplasi a) Disease Active 10-06 00:00: 00 Luz Maria Callahana rona Chronic back pain Chronic back pain Disease Active 10-06 00:00: 00 Luz Maria Callahana rona Spondylosi s of lumbar spine Spondylosi s of lumbar spine Disease Active 10-06 00:00: 00 Luz Maria Callahana rona Epigastric pain Epigastric pain Disease Active 10-11 00:00: 00 [facility] SBO (small bowel obstructio n) SBO (small bowel obstructio n) Disease Active 10-30 00:00: 00 [facility] Obesity (BMI 30-39.9) Obesity (BMI 30-39.9) Disease Active 10-30 00:00: 00 [facility] No known active problems No known active problems Disease [facility] [id number] Bladder mass Problem [facility] [id number] Microscopi c hematuria Problem [facility] [id number] Suprapubic pain Problem [facility] [id number] Lower urinary tract symptoms Problem [facility] Allergies, Adverse Reactions, Alerts Allergy Name Allergy Type Status Severity Reaction(s) Onset Date Inactive Date Treating Clinician Comments Source bee venom protein (honey bee) DA Active SV THROAT SWELL 2022-09 00:00: 00 [facility] Bee Venom Propensi ty to adverse reaction s Active Swelling 10-30 00:00: 00 [facility]z Maria rea BEE VENOM PROTEIN (HONEY BEE) DRUG INGREDI Active Swelling 10-30 00:00: 00 [facility] No Known Allergie s DA Active U 04-19 00:00: 00 [facility] NO KNOWN ALLERGIE S Drug Class Active [facility] Social History Social Habit Start Date Stop Date Quantity Comments Source Gender identity Kelsi Ng - External Sexual orientation Trevor hernandezchanda Hernandez - External History of tobacco use [...] (event) 2022-11-28 00:00:00 2022-12-08 23:50:00 Not sure [facility] Sex assigned at 1970 00:00:00 1970 00:00:00 Luz Maria Ng - External Smoking Status Start Date Stop Date Source Ex-smoker 2024-03-30 00:00:00 2024-03-30 00:00:00 Luz Maria Ng - External Occasional tobacco smoker 2023-05-20 00:00:00 Luz Maria Ng - External Never smoked tobacco [facility] Unknown if ever smoked [facility] Medications Ordered Medication Name Filled Medication Name Start Date Stop Date Current Medication? Ordering Clinician Indication Dosage Frequency Signature (SIG) Comments Components Source diphenhydrA MINE:lidoca ine 2% viscous:maa lox 1:1:1 (FIRST-MOUT HWASH BLM) oral suspension 15 mL 04-02 16:30: 00 04-02 15:34 :00 No 15mL 15 mL, Oral (Swish & Swallow), ONCE, 1 dose, On 04/02/24 at 1130, Routine [facility] famotidine (PEPCID (PF)) injection 20 mg 04-02 15:30: 00 04-02 15:34 :00 No 20mg 20 mg, Slow IV Push, ONCE, 1 dose, On 04/02/24 at 1030, [facility] NaCl 0.9% (NS) bolus infusion 2,000 mL 04-02 15:15: 00 04-02 17:55 :00 No 2000mL at 999 mL/hr, 2,000 mL, IV Infusion, ONCE, 1 dose, On 04/02/24 at 1015, STAT [facility] ondansetron (ZOFRAN (PF)) injection 4 mg 04-02 15:15: 00 04-02 14:27 :00 No 4mg 4 mg, Slow IV Push, ONCE, 1 dose, On 04/02/24 at 1015, [facility] iopamidol (ISOVUE 370-500 mL) injection 90 mL 04-02 14:45: 00 04-02 15:00 :00 No [id number] 90mL 90 mL, Intravenou s, ONCE, 1 dose, On 04/02/24 at 1000, [facility] morpHINE (4 mg/mL) injection 4 mg 04-02 14:15: 00 04-02 14:27 :00 No 4mg 4 mg, Slow IV Push, ONCE, 1 dose, On 04/02/24 at 0915, STAT [facility] Sucralfate 1 g oral Tablet 7-20 00:00: 00 Yes 1g Take 1 tablet (1 g total) by mouth before meals and at bedtime. [facility] Sod Picosulfate -Mag Ox-Cit Acd (Clenpiq) 10-3.5-12 MG-GM -GM/175ML oral Solution 03-30 00:00: 00 Yes [id number] Instructio ns provided to patient. Follow instructio ns provided by provider.. [facility] Omeprazole 40 MG oral Delayed Release Capsule 03-30 00:00: 00 Yes [id number] 40mg QD Take 1 capsule (40 mg total) by mouth daily. [facility] NaCl 0.9% (NS) bolus infusion 1,000 mL 02-20 03:45: 00 02-20 04:50 :00 No 1000mL at 999 mL/hr, 1,000 mL, IV Infusion, ONCE, 1 dose, On 02/20/24 at 2245, [facility] FENTanyl PF (SUBLIMAZE (PF)) injection 50 mcg 02-20 03:00: 00 02-20 03:07 :00 No 50ug 50 mcg, Slow IV Push, ONCE, 1 dose, On 02/20/24 at 2200, Routine [facility] metoclopram jerilyn HCl (REGLAN) injection 10 mg 02-20 03:00: 00 02-20 03:07 :00 No 10mg 10 mg, Slow IV Push, ONCE, 1 dose, On 02/20/24 at 2200, [facility] bisacodyL (DULCOLAX) tablet 5 mg 02-20 03:00: 00 02-20 03:07 :00 No 5mg 5 mg, Oral, ONCE NOW, 1 dose, On 02/20/24 at 2200, Routine [facility] Bisacodyl (DULCOLAX) 5 MG oral Tablet Delayed Response 02-19 00:00: 00 Yes 5mg QD Take 1 tablet (5 mg total) by mouth daily as needed. [facility] dicyclomine 20 mg tablet 08 00:00: 00 Yes [id number] 20mg Take 1 tablet by mouth 4 (four) times daily as needed for Abdominal pain. [facility] Ketorolac Tromethamin e 10 MG oral Tablet 12-16 15:16: 47 12-16 00:00 :00 No 10mg Q.25D Take 1 tablet (10 mg total) by mouth every 6 hours as needed for pain FOR PAIN. [facility] Cyclobenzap rine HCl 10 MG oral Tablet 12-16 00:00: 00 Yes [id number] 10mg QD Take 1 tablet (10 mg total) by mouth nightly as needed for muscle spasms. [facility] HYDROcodone -acetaminop hen (NORCO) 10-325 mg tablet 1 tablet 12-09 04:45: 00 12-09 03:57 :00 No 1{tbl} 1 tablet, Oral, ONCE NOW, 1 dose, On Thu12/09/23 at 2345, Routine [facility] iopamidol (ISOVUE 370-500 mL) injection 100 mL 12-09 03:30: 00 12-09 03:30 :00 No [id number] 100mL 100 mL, Intravenou s, ONCE, 1 dose, On Thu12/09/23 at 2230, Routine [facility] ketorolac (TORADOL) injection 30 mg 12-09 03:00: 00 12-09 02:04 :00 No 30mg 30 mg, Slow IV Push, ONCE, 1 dose, On Thu12/09/23 at 2200, Routine [facility] Methocarbam ol 750 MG oral Tablet 12-09 00:00: 00 12-16 00:00 :00 No 750mg Q.25D Take 1 tablet (750 mg total) by mouth every 6 hours as needed FOR PAIN. [facility] ketorolac 10 mg tablet 12-08 00:00: 00 Yes [id number] 10mg Take 1 tablet by mouth every 6 (six) hours as needed for Pain (scale 7-10). [facility] methocarbam oL 750 mg tablet 12-08 00:00: 00 Yes [id number] 750mg Take 1 tablet by mouth every 6 (six) hours as needed for Pain (scale 7-10) (MUSCLE SPASM). [facility] Ketorolac Tromethamin e (TORADOL IM) 12-05 00:00: 00 12-16 00:00 :00 No [facility] Lisinopril 10 MG oral Tablet 10-06 14:45: 28 10-06 00:00 :00 No 10mg Take 1 tablet (10 mg total) by mouth daily. [facility] Gabapentin 300 MG oral Capsule 10-06 00:00: 00 Yes [id number] 300mg Q.5D Take 1 capsule (300 mg total) by mouth 2 times daily as needed. [facility] Pancrelipas e, Lip-Prot-Am yl, (Creon) [id number] units [address] Cap [address] Particles 10-06 00:00: 00 Yes [id number] 1{capsu le} Take 1 capsule by mouth 3 times daily (with meals). [facility] Amlodipine Besylate 10 MG oral Tablet 10-06 00:00: 00 Yes [id number] 10mg QD Take 1 tablet (10 mg total) by mouth daily. [facility] Lisinopril 10 MG oral Tablet 10-06 00:00: 00 Yes [id number] 10mg QD Take 1 tablet (10 mg total) by mouth daily. [facility] Famotidine (PEPCID) 20 MG oral tablet 10-06 00:00: 00 Yes [id number] 20mg Q.5D Take 1 tablet (20 mg total) by mouth 2 times daily. [facility] Pantoprazol e Sodium 20 MG oral Tablet Delayed Response 10-06 00:00: 00 03-30 00:00 :00 No [id number] 20mg Take 1 tablet (20 mg total) by mouth every morning. [facility]z Maria Hernandez rea HYDROcodone -acetaminop hen (NORCO) 10-325 mg tablet 1 tablet 2022-09 06:45: 00 08-04 05:38 :00 No 1{tbl} 1 tablet, Oral, ONCE NOW, 1 dose, On Thu08/04/23 [facility] 0045[facility] (ROBAXIN) tablet 1,000 mg 2022-09 05:45: 00 08-04 05:38 :00 No 1000mg 1,000 mg, Oral, ONCE, 1 dose, On Thu08/03/23 at 2345, [facility] FENTanyl PF (SUBLIMAZE (PF)) injection 75 mcg 2022-09 05:00: 00 08-04 04:14 :00 No 75ug 75 mcg, Slow IV Push, ONCE, 1 dose, On Thu08/03/23 at 2300, Routine [facility] NaCl 0.9% (NS) IV infusion 1,000 mL 2022-09 04:45: 00 08-04 05:39 :00 No 1000mL at 999 mL/hr, Intravenou s, ONCE, 1 dose, On Thu08/03/23 at 2245, Routine [facility] methocarbam oL 500 mg tablet 2022-09 00:00: 00 Yes [id number] 500mg Take 1 tablet by mouth every 6 (six) hours as needed (MUSCLE SPASM). [facility] HYDROcodone -acetaminop hen (NORCO) 10-325 mg tablet 2022-09 00:00: 00 08-11 05:59 :00 No [id number] 1{tbl} Take 1 tablet by mouth every 6 (six) hours as needed for Pain (scale 7-10) for up to 7 days. Indication s: acute pain [facility] diphenhydrA MINE (BENADRYL) injection 25 mg 2022-09 19:30: 00 07-25 18:34 :00 No 25mg 25 mg, Slow IV Push, ONCE, 1 dose, On 07/25/23 at 1330, STAT [facility] metoclopram jerilyn HCl (REGLAN) injection 10 mg 2022-09 19:30: 00 07-25 18:34 :00 No 10mg 10 mg, Slow IV Push, ONCE, 1 dose, On 07/25/23 at 1330, [facility] morpHINE (4 mg/mL) injection 4 mg 2022-09 17:30: 00 07-25 16:43 :00 No 4mg 4 mg, Slow IV Push, ONCE, 1 dose, On 07/25/23 at 1130, STAT [facility] ondansetron (ZOFRAN (PF)) injection 4 mg 2022-09 17:15: 00 07-25 16:43 :00 No 4mg 4 mg, Slow IV Push, ONCE, 1 dose, On 07/25/23 at 1115, [facility] NaCl 0.9% (NS) bolus infusion 1,000 mL 2022-09 17:15: 00 07-25 18:54 :00 No 1000mL at 999 mL/hr, 1,000 mL, IV Infusion, ONCE, 1 dose, On 07/25/23 at 1115, STAT [facility] metoclopram jerilyn HCl 10 mg tablet 2022-09 00:00: 00 Yes [id number] 10mg Take 1 tablet by mouth every 6 (six) hours. [facility] sodium chloride (NS) injection 5 mL 2022-09 19:45: 30 Yes 5mL 5 mL, Intravenou s, PRN, Starting on Thu07/24/23 at 1345, Until Discontinu ed, Routine, IV line flushing [facility] dicyclomine 20 mg tablet 2022-09 00:00: 00 02-19 00:00 :00 No [id number] 20mg Take 1 tablet by mouth 4 (four) times daily as needed for Abdominal pain. [facility] ketorolac (TORADOL) injection 15 mg 2022-09 03:15: 00 07-12 02:32 :00 No 15mg 15 mg, Slow IV Push, ONCE, 1 dose, On 07/11/23 at 2215, Routine [facility] methocarbam oL (ROBAXIN) tablet 1,000 mg 2022-09 02:30: 00 07-12 02:32 :00 No 1000mg 1,000 mg, Oral, ONCE, 1 dose, On 07/11/23 at 2130, [facility] famotidine (PEPCID (PF)) injection 20 mg 2022-09 02:30: 00 07-12 02:32 :00 No 20mg 20 mg, Slow IV Push, ONCE, 1 dose, On 07/11/23 at 2130, [facility] aspirin chewable tablet 324 mg 2022-09 02:15: 00 07-12 02:31 :00 No 324mg 324 mg, Oral, ONCE, 1 dose, On 07/11/23 at 2115, STAT [facility] HYDROcodone -acetaminop hen 5-325 mg tablet 2022-09 00:00: 00 07-15 04:59 :00 No [id number] 1{tbl} Take 1 tablet by mouth every 4 (four) hours as needed for Pain (scale 7-10) for up to 3 days. Indication s: acute pain [facility] omeprazole 40 mg capsule 2022-09 00:00: 00 Yes [id number] 40mg Take 1 capsule by mouth in the morning and 1 capsule in the evening. [facility] peg-electro lyte soln 236-22.74-6 .74 -5.86 gram solution 2022-09 00:00: 00 Yes [id number] Take as directed before colonoscop y [facility] Lisinopril 10 MG oral Tablet 2022-09 08:45: 58 Yes 10mg Take 1 tablet (10 mg total) by mouth daily. [facility] Tamsulosin HCl 0.4 MG oral Capsule 2023-1 0-25 00:00: 00 Yes .4mg Take 1 capsule (0.4 mg total) by mouth every night at bedtime. [facility] morpHINE (4 mg/mL) injection 4 mg 2022-09 0 13:45: 00 07-03 12:49 :00 No 4mg 4 mg, Slow IV Push, ONCE, 1 dose, On Thu07/03/23 at 0845, [facility]ILIY [facility] famotidine (PEPCID (PF)) injection 20 mg 2022-09 13:00: 00 07-03 12:49 :00 No 20mg 20 mg, Slow IV Push, ONCE, 1 dose, On Thu07/03/23 at 0800, [facility] iohexol (OMNIPAQUE 350 BULK-100 mL) injection 80 mL 2022-09 10:40: 00 07-03 10:40 :00 No [id number] 80mL 80 mL, Intravenou s, ONCE, 1 dose, On Thu07/03/23 at 0545, Routine [facility] ondansetron (ZOFRAN (PF)) injection 4 mg 2022-09 10:15: 00 07-03 10:20 :00 No 4mg 4 mg, Slow IV Push, ONCE, 1 dose, On Thu07/03/23 at 0515, [facility] mor[facility]INE (4 mg/mL) injection 4 mg 2022-09 10:15: 00 07-03 10:20 :00 No 4mg 4 mg, Slow IV Push, ONCE, 1 dose, On Thu07/03/23 at 0515, STAT [facility] Pantoprazol e Sodium 20 MG [...] rea famotidine (PEPCID) 20 mg tablet 2022-09 0 00:00: 00 07-10 00:00 :00 No [id number] 20mg Take 1 tablet by mouth in the morning and 1 tablet in the evening. [facility] Lisinopril 10 MG oral Tablet [...] 05-08 03:15: 00 05-08 02:12 :00 No [id number] 80mL 80 mL, Intravenou s, ONCE, 1 dose, On Carrie 05/07/23 at 2215, Routine [facility] morpHINE (4 mg/mL) injection 4 mg 05-08 01:00: 00 05-08 01:38 :00 No 4mg 4 mg, Slow IV Push, ONCE, 1 dose, On Carrie 05/07/23 at 1999, [facility] NaCl 0.9% (NS) bolus infusion 1,000 mL 05-08 01:00: 00 05-08 04:22 :00 No 1000mL at 999 mL/hr, 1,000 mL, IV Infusion, ONCE, 1 dose, On Carrie 05/07/23 at 2000, [facility] NaCl 0.9% (NS) bolus infusion 1,000 mL 05-02 05:15: 00 05-02 05:29 :00 No 1000mL at 999 mL/hr, 1,000 mL, IV Infusion, ONCE, 1 dose, On [facility] 05/02/23 at 0015, STAT [facility] famotidine (PEPCID (PF)) injection 20 mg 05-02 04:15: 00 05-02 04:21 :00 No 20mg 20 mg, Slow IV Push, ONCE, 1 dose, On Thu05/01/23 at 2315, [facility] maalox:diph enhydrAMINE :lidocaine 2 % viscous 1:1:1 (FIRST-MOUT [facility]) oral suspension 15 mL 05-02 04:15: 00 05-02 04:21 :00 No 15mL 15 mL, Oral, ONCE, 1 dose, On Thu05/01/23 at 2315, [facility] ondansetron (ZOFRAN (PF)) injection 4 mg 05-02 04:15: 00 05-02 03:18 :00 No 4mg 4 mg, Slow IV Push, ONCE, 1 dose, On Thu05/01/23 at 2315, [facility] NaCl 0.9% (NS) bolus infusion 1,000 mL 05-02 04:15: 00 05-02 04:15 :00 No 1000mL at 999 mL/hr, 1,000 mL, IV Infusion, ONCE, 1 dose, On Thu05/01/23 at 2315, STAT [facility] metoclopram jerilyn HCl 10 mg tablet 05-01 00:00: 00 Yes [id number] 10mg Take 1 tablet by mouth every 6 (six) hours. [facility] pantoprazol e (PROTONIX) 20 mg EC tablet 05-01 00:00: 00 07-03 00:00 :00 No [id number] 20mg Take 1 tablet by mouth in the morning. [facility] iopamidol (ISOVUE 370-500 mL) injection 70 mL 04-22 16:21: 00 04-22 16:21 :00 No [id number] 70mL 70 mL, Intravenou s, ONCE, 1 dose, On Thu04/22/23 at 1145, Routine [facility] haloperidol lactate (HALDOL) injection 2.5 mg 04-22 16:00: 00 04-22 16:01 :00 No 2.5mg 2.5 mg, Intravenou s, ONCE, 1 dose, On Thu04/22/23 at 1100, STAT [facility] NaCl 0.9% (NS) bolus infusion 500 mL 04-22 14:45: 00 04-22 15:30 :00 No 500mL at 999 mL/hr, 500 mL, IV Infusion, ONCE, 1 dose, On Thu04/22/23 at 0945, STAT [facility] maalox:diph enhydrAMINE :lidocaine 2 % viscous 1:1:1 (FIRST-MOUT HWASH BLM) oral suspension 15 mL 04-22 13:00: 00 04-22 12:55 :00 No 15mL 15 mL, Oral, ONCE, 1 dose, On Thu04/22/23 at 0800, Routine [facility] NaCl 0.9% (NS) IV infusion 1,000 mL 04-22 12:45: 00 Yes 1000mL at 999 mL/hr, Intravenou s, CONTINUOUS , Starting on Thu04/22/23 at 0745, Until Discontinu ed, [facility] NaCl 0.9% (NS) bolus infusion 1,000 mL 04-22 10:30: 00 04-22 11:30 :00 No 1000mL at 999 mL/hr, 1,000 mL, IV Infusion, ONCE, 1 dose, On Thu04/22/23 at 0530, STAT [facility] ketorolac (TORADOL) injection 30 mg 04-22 10:30: 00 04-22 09:21 :00 No 30mg 30 mg, Slow IV Push, ONCE, 1 dose, On Thu04/22/23 at 0530, Routine [facility] diphenhydrA MINE (BENADRYL) injection 25 mg 04-22 09:30: 00 04-22 09:21 :00 No 25mg 25 mg, Slow IV Push, ONCE, 1 dose, On Thu04/22/23 at 0430, STAT [facility] metoclopram jerilyn HCl (REGLAN) injection 10 mg 04-22 09:30: 00 04-22 09:21 :00 No 10mg 10 mg, Slow IV Push, ONCE, 1 dose, On Thu04/22/23 at 0430, [facility]ILIY [facility] NaCl 0.9% (NS) bolus infusion 1,000 mL 04-22 09:15: 00 04-22 10:28 :00 No 1000mL at 999 mL/hr, 1,000 mL, IV Infusion, ONCE, 1 dose, On Thu04/22/23 at 0415, STAT [facility] Tramadol HCl (ULTRAM) 50 MG [...] 1 dose, On Thu04/16/23 at 0915, Routine [facility] famotidine (PEPCID (PF)) injection 20 mg 04-16 13:30: 00 04-16 12:33 :00 No 20mg 20 mg, Slow IV Push, ONCE NOW, 1 dose, On Thu04/16/23 at 0830, [facility] dicyclomine (BENTYL) injection 20 mg 04-16 13:30: 00 04-16 12:34 :00 No 20mg 20 mg, Intramuscu lar, ONCE NOW, 1 dose, On Carrie 04/16/23 at 0830, Routine [facility] enalaprilat (VASOTEC I.V.) injection 1.25 mg 04-16 13:15: 00 04-16 13:17 :00 No 1.25mg 1.25 mg, Slow IV Push, ONCE, 1 dose, On Carrie 04/16/23 at 0815, STAT [facility] lactulose (CEPHULAC) solution 45 mL 04-16 13:15: 00 04-16 13:18 :00 No 45mL 45 mL, Oral, ONCE, 1 dose, On Carrie 04/16/23 at 0815, [facility]ILI[facility] ketorolac (TORADOL) injection 30 mg 04-16 13:15: 00 04-16 12:32 :00 No 30mg 30 mg, Slow IV Push, ONCE NOW, 1 dose, On Carrie 04/16/23 at 0815, [facility] NaCl 0.9% (NS) bolus infusion 1,000 mL 04-16 13:15: 00 04-16 13:54 :00 No 1000mL at 999 mL/hr, 1,000 mL, IV Piggyback, ONCE, 1 dose, On [facility] 04/16/23 at 0815, STAT [facility] lipase-prot ease-amylas e (CREON) 3,000-9,500 - 15,000 unit capsule 04-16 00:00: 00 Yes [id number] 3000U Take 1 capsule by mouth in the morning and 1 capsule at noon and 1 capsule in the evening. Take with meals. [facility] hyoscyamine sulfate (LEVSIN/SL) 0.125 mg sublingual tablet 04-16 00:00: [id number] 2 tablets under the tongue every 6 (six) hours as needed (Abdominal pain or cramping). [facility] bisacodyL 5 mg EC tablet 04-16 00:00: 00 Yes [id number] 5mg Take 1 tablet by mouth once daily as needed for Constipati on. [facility] Famotidine (PEPCID) 20 MG oral tablet 04-16 00:00: 00 10-06 00:00 :00 No 20mg Take 1 tablet (20 mg total) by mouth 2 times daily. [facility] Lorazepam 1 MG oral Tablet 04-05 00:00: 00 10-06 00:00 :00 No 1mg Q.[id number] 3D Take 1 tablet (1 mg total) by mouth every 8 hours as needed. [facility] iopamidol (ISOVUE 370-500 mL) injection 100 mL 04-01 07:45: 00 04-01 06:58 :00 No [id number] 100mL 100 mL, Intravenou s, ONCE, 1 dose, On Thu04/01/23 at 0245, Routine [facility] famotidine (PEPCID (PF)) injection 20 mg 04-01 05:45: 00 04-01 06:09 :00 No 20mg 20 mg, Slow IV Push, ONCE, 1 dose, On Thu04/01/23 at 0045, [facility] FENTanyl PF (SUBLIMAZE (PF)) injection 50 mcg 04-01 05:38: 00 04-01 06:10 :00 No 50ug 50 mcg, Slow IV Push, ONCE, 1 dose, On Thu04/01/23 at 0045, [facility] NaCl 0.9% (NS) IV infusion 1,000 mL 04-01 05:05: 00 04-01 06:30 :00 No 1000mL at 999 mL/hr, Intravenou s, ONCE, 1 dose, On Thu04/01/23 at 0015, [facility] ondansetron (ZOFRAN (PF)) injection 4 mg 04-01 05:05: 00 04-01 05:08 :00 No 4mg 4 mg, Slow IV Push, ONCE, 1 dose, On Thu04/01/23 at 0015, [facility] sodium chloride (NS) injection 5 mL 04-01 05:04: 36 Yes 5mL 5 mL, Intravenou s, PRN, Starting on Thu04/01/23 at 0004, Until Discontinu ed, Routine, IV line flushing [facility] ondansetron 4 mg disintegrat ing tablet 04-01 00:00: 00 Yes [id number] 4mg Take 1 tablet by mouth every 8 (eight) hours as needed for Nausea and Vomiting (N/V). [facility] traMADoL 50 mg tablet 04-01 00:00: 00 04-09 04:59 :00 No [id number] 50mg Take 1 tablet by mouth every 8 (eight) hours as needed for Pain (scale 4-6) for up to 7 days. Indication s: acute pain [facility] predniSONE (DELTASONE) tablet 40 mg 12-09 07:15: 00 12-09 06:33 :00 No 40mg 40 mg, Oral, ONCE, 1 dose, On Thu12/09/22 at 0215, [facility] traMADoL (ULTRAM) tablet 50 mg 12-09 07:15: 00 12-09 06:33 :00 No 50mg 50 mg, Oral, ONCE, 1 dose, On Thu12/09/22 at 0215, [facility] iopamidol (ISOVUE 370-500 mL) injection 100 mL 12-09 06:15: 00 12-09 06:15 :00 No [id number] 100mL 100 mL, Intravenou s, ONCE, 1 dose, On Thu12/09/22 at 0115, Routine [facility] ketorolac (TORADOL) injection 30 mg 12-09 06:15: 00 12-09 05:30 :00 No 30mg 30 mg, Slow IV Push, ONCE, 1 dose, On Thu12/09/22 at 0115, [facility] morpHINE (4 mg/mL) injection 4 mg 12-09 06:15: 00 12-09 05:30 :00 No 4mg 4 mg, Slow IV Push, ONCE, 1 dose, On Thu12/09/22 at 0115, [facility] NaCl 0.9% (NS) bolus infusion 1,000 mL 12-09 06:15: 00 12-09 06:33 :00 No 1000mL at 999 mL/hr, 1,000 mL, IV Infusion, ONCE, 1 dose, On Thu12/09/22 at 0115, [facility] ondansetron (ZOFRAN (PF)) injection 8 mg 12-09 05:30: 00 12-09 05:30 :00 No 8mg 8 mg, Slow IV Push, ONCE, 1 dose, On Thu12/09/22 at 0030, [facility] traMADoL 50 mg tablet 12-09 00:00: 00 Yes [id number] 50mg Take 1 tablet by mouth every 6 (six) hours as needed (pain). Indication s: acute pain [facility] ondansetron 4 mg tablet 12-09 00:00: 00 Yes [id number] 1-2 tablets every 8 hours as needed for nausea [facility] predniSONE 20 mg tablet 12-09 00:00: 00 12-17 04:59 :00 No [id number] 40mg Take 2 tablets by mouth in the morning for 7 days. [facility] iopamidol (ISOVUE 370-500 mL) injection 100 mL 11-25 06:15: 00 11-25 06:15 :00 No [id number] 100mL 100 mL, Intravenou s, ONCE, 1 dose, On Thu11/25/22 at 0115, Routine [facility] NaCl 0.9% (NS) bolus infusion 1,000 mL 11-25 06:00: 00 11-25 07:00 :00 No 1000mL at 999 mL/hr, 1,000 mL, IV Infusion, ONCE, 1 dose, On Thu11/25/22 at 0100, STAT [facility] FENTanyl PF (SUBLIMAZE (PF)) injection 50 mcg 11-25 05:45: 00 11-25 05:03 :00 No 50ug 50 mcg, Slow IV Push, ONCE, 1 dose, On Thu11/25/22 at 0045, Routine [facility] ondansetron (ZOFRAN (PF)) injection 4 mg 11-25 05:00: 00 11-25 05:04 :00 No 4mg 4 mg, Slow IV Push, ONCE, 1 dose, On Thu11/25/22 at 0000, VASILIY [facility] Pancrelipas e, Lip-Prot-Am yl, (Creon) [address]82-490[address] units oral Cap DR Particles 10-13 00:00: 00 10-06 00:00 :00 No Luz Maria Seybold - Externa l lipase-prot ease-amylas e (CREON) 12,000-38,0 00 -60,000 unit capsule 2 capsule 10-12 23:00: 00 Yes 2{capsu le} 2 capsule, Oral, TID MEALS, First dose on Thu10/12/22 at 1700, Until Discontinu ed, Routine [facility] lisinopriL 10 mg tablet 10-12 17:56: 15 Yes 10mg Take 10 mg by mouth in the morning. [facility] meloxicam (MOBIC) tablet 7.5 mg 10-12 17:15: 00 Yes 7.5mg 7.5 mg, Oral, DAILY, First dose on Thu10/12/22 at 1115, Until Discontinu ed, Routine [facility] omeprazole (PRILOSEC) capsule 20 mg 10-12 15:00: 00 Yes 20mg 20 mg, Oral, DAILY, First dose on Thu10/12/22 at 0900, Until Discontinu ed, Routine [facility] Pantoprazol e Sodium 40 MG oral Tablet Delayed Response 10-12 00:00: 00 10-06 00:00 :00 No Luz Maria Ng - Externerwin l lipase-prot ease-amylas e 12,000-38,0 00 -60,000 unit capsule 10-12 00:00: 00 01-11 04:59 :00 No [id number] 2{capsu le} Take 2 capsules by mouth in the morning and 2 capsules at noon and 2 capsules in the evening. Take with meals. Do all this for 90 days. Do not crush or chew. [facility] meloxicam 7.5 mg tablet 10-12 00:00: 00 10-27 05:59 :00 No [id number] 7.5mg Take 1 tablet by mouth once daily as needed for Pain (scale 7-10) for up to 14 days. [facility] HYDROcodone -acetaminop hen 5-325 mg tablet 10-12 00:00: 00 10-20 05:59 :00 No [id number] 1{tbl} Take 1 tablet by mouth every 6 (six) hours as needed for Pain (scale 4-6) for up to 7 days. Indication s: acute pain [facility] amLODIPine (NORVASC) tablet 10 mg 10-11 20:00: 00 Yes 10mg 10 mg, Oral, DAILY, First dose on 10/11/22 at 1400, Until Discontinu ed, Routine [facility] lactated ringers IV infusion 1,000 mL 10-11 20:00: 00 10-12 14:03 :28 No 1000mL at 125 mL/hr, 1,000 mL, IV Infusion, CONTINUOUS , Starting on 10/11/22 at 1400, Until 10/12/22 at 0803, Routine [facility] HYDROcodone -acetaminop hen (NORCO 5) 5-325 mg tablet 1 tablet 10-11 19:35: 19 10-13 19:34 :19 No 1{tbl} 1 tablet, Oral, Q6HPRN, Starting on 1/28/23 at 1335, Until 10/13/22 at 1334, Routine, Pain (scale 4-6) [facility] acetaminoph en (TYLENOL) tablet 650 mg 10-11 19:35: 16 Yes 650mg 650 mg, Oral, Q6HPRN, Starting on 10/11/22 at 1335, Until Discontinu ed, Routine, Pain (scale 1-3) [facility] NaCl 0.9% (NS) bolus infusion 1,000 mL 10-11 16:45: 00 10-11 16:02 :00 No 1000mL at 999 mL/hr, 1,000 mL, Intravenou s, ONCE, 1 dose, On 10/11/22 at 1045, STAT [facility] ondansetron (ZOFRAN (PF)) injection 4 mg 10-11 16:15: 00 10-11 16:15 :00 No 4mg 4 mg, Slow IV Push, ONCE, 1 dose, On 10/11/22 at 1015, VASILIY [facility] morpHINE (4 mg/mL) injection 4 mg 10-11 16:15: 00 10-11 16:14 :00 No 4mg 4 mg, Slow IV Push, ONCE, 1 dose, On 10/11/22 at 1015, STAT [facility] iopamidol (ISOVUE 370-500 mL) injection 120 mL 10-11 15:45: 00 10-11 14:43 :00 No [id number] 120mL 120 mL, Intravenou s, ONCE, 1 dose, On 10/11/22 at 0945, Routine [facility] FENTanyl PF (SUBLIMAZE (PF)) injection 50 mcg 10-09 08:30: 00 10-09 07:23 :00 No 50ug 50 mcg, Slow IV Push, ONCE, 1 dose, On Carrie 10/09/22 at 0230, Routine [facility] iopamidol (ISOVUE 370-500 mL) injection 100 mL 10-09 07:15: 00 10-09 07:15 :00 No [id number] 100mL 100 mL, Intravenou s, ONCE, 1 dose, On Carrie 10/09/22 at 0115, Routine [facility] ketorolac (TORADOL) injection 30 mg 10-09 06:15: 00 10-09 05:25 :00 No 30mg 30 mg, Slow IV Push, ONCE, 1 dose, On Carrie 10/09/22 at 0015, Routine [facility] ondansetron (ZOFRAN) 4 mg tablet 10-09 00:00: 00 Yes [id number] 4mg Take 1 tablet by mouth every 8 (eight) hours as needed for Nausea and Vomiting (N/V). [facility] traMADoL (ULTRAM) 50 mg tablet 10-09 00:00: 00 Yes [id number] 50mg Take 1 tablet by mouth every 6 (six) hours as needed for Pain (scale 7-10). Indication s: acute pain [facility] ketorolac (TORADOL) injection 30 mg 2021-09 17:15: 00 08-20 16:35 :00 No 30mg 30 mg, Intramuscu lar, ONCE, 1 dose, On Thu08/20/22 at 1115, [facility] Amlodipine Besylate 10 MG oral Tablet 2021-09 00:00: 00 10-06 00:00 :00 No Luz Maria rea morpHINE (4 mg/mL) injection 4 mg 06-09 13:15: 00 06-09 12:54 :00 No 4mg 4 mg, Slow IV Push, ONCE, 1 dose, On Thu06/09/22 at 0815, [facility] ketorolac (TORADOL) injection 30 mg 06-09 13:15: 00 06-09 12:55 :00 No 30mg 30 mg, Slow IV Push, ONCE, 1 dose, On 06/09/22 at 0815, [facility] iopamidol (ISOVUE 370-500 mL) injection 60 mL 06-09 13:07: 00 06-09 13:08 :00 No [id number] 60mL 60 mL, Intravenou s, ONCE, 1 dose, On Thu06/09/22 at 0815, Routine [facility] ondansetron (ZOFRAN (PF)) injection 4 mg 06-09 12:30: 00 06-09 12:54 :00 No 4mg 4 mg, Slow IV Push, ONCE, 1 dose, On Thu06/09/22 at 0730, VASILIY [facility] dexamethaso ne sod phos PF injection 10 mg 06-09 12:30: 00 06-09 12:55 :00 No 10mg 10 mg, Slow IV Push, ONCE, 1 dose, On Thu06/09/22 at 0730, 1 mL [facility] traMADoL 50 mg tablet 06-09 00:00: 00 10-11 00:00 :00 No [id number] 50mg Take 1 tablet by mouth every 6 (six) hours as needed (pain). Indication s: acute pain [facility] lidocaine 5 % (700 mg/patch) patch 06-09 00:00: 00 10-11 00:00 :00 No [id number] Apply one patch to most painful area up to 12 hours a day as needed for pain. PHARMACIST : dispense one box [facility] predniSONE 20 mg tablet 06-09 00:00: 00 06-17 04:59 :00 No [id number] 40mg Take 2 tablets by mouth in the morning for 7 days. [facility] Dose Unknown 02-03 00:00: 00 No Dose Unknown 02-03 00:00: 00 No lisinopriL (PRINIVIL,Z ESTRIL) tablet 20 mg 11-01 03:00: 00 Yes 20mg 20 mg, Oral, QHS, First dose (after last modificati on) on Carrie 10/31/21 at 2100, Until Discontinu ed, Routine [facility] lisinopriL 20 mg tablet 11-01 00:00: 00 12-02 04:59 :00 No [id number] 20mg Take 1 tablet by mouth at bedtime for 30 days. [facility] lactated ringers IV infusion 1,000 mL 10-31 19:00: 00 Yes 1000mL at 75 mL/hr, 1,000 mL, IV Infusion, CONTINUOUS , Starting on Thu10/31/21 at 1300, Until Discontinu ed, Routine [facility] amLODIPine (NORVASC) tablet 10 mg 10-31 15:00: 00 Yes 10mg 10 mg, Oral, DAILY, First dose on Thu10/31/21 at 0900, Until Discontinu ed, Routine [facility] enoxaparin (LOVENOX) injection 40 mg 10-31 15:00: 00 Yes 40mg 40 mg, Subcutaneo us, DAILY, First dose on Thu10/31/21 at 0900, Until Discontinu ed, Routine [facility] lactated ringers IV infusion 1,000 mL 10-31 07:00: 00 10-31 18:45 :24 No 1000mL at 150 mL/hr, 1,000 mL, IV Infusion, CONTINUOUS , Starting on Thu10/31/21 at 0100, Until Thu10/31/21 at 1245, Routine [facility] lactated ringers IV infusion 1,000 mL 10-31 01:00: 00 10-31 06:52 :16 No 1000mL at 75 mL/hr, 1,000 mL, IV Infusion, CONTINUOUS , Starting on Thu10/30/21 at 1900, Until Thu10/31/21 at 0052, Routine [facility] morpHINE injection 4 mg 10-31 00:43: 35 11-01 00:42 :35 No 4mg 4 mg, Slow IV Push, Q4HPRN, Starting on Thu10/30/21 at 1843, Until Thu10/31/21 at 1842, Routine, Pain (scale 7-10) [facility] HYDROcodone -acetaminop hen (NORCO 5) 5-325 mg tablet 1 tablet 10-31 00:43: 32 11-02 00:42 :32 No 1{tbl} 1 tablet, Oral, Q6HPRN, Starting on Thu10/30/21 at 1843, Until Thu11/01/21 at 1842, Routine, Pain (scale 4-6) [facility] acetaminoph en (TYLENOL) tablet 650 mg 10-31 00:43: 22 Yes 650mg 650 mg, Oral, Q6HPRN, Starting on Thu10/30/21 at 1843, Until Discontinu ed, Routine, Pain (scale 1-3) [facility] ondansetron (ZOFRAN (PF)) injection 4 mg 10-30 21:15: 00 10-30 20:28 :00 No 4mg 4 mg, Slow IV Push, ONCE, 1 dose, On Thu10/30/21 at 1515, VASILIY [facility] morpHINE injection 4 mg 10-30 21:15: 00 10-30 20:29 :00 No 4mg 4 mg, Slow IV Push, ONCE, 1 dose, On Thu10/30/21 at 1515, STAT [facility] NaCl 0.9% (NS) bolus infusion 1,000 mL 10-30 21:15: 00 10-30 20:29 :00 No 1000mL at 999 mL/hr, 1,000 mL, IV Infusion, ONCE, 1 dose, On Thu10/30/21 at 1515, VASILIY [facility] iopamidol (ISOVUE 370-500 mL) injection 100 mL 10-30 20:37: 00 10-30 20:35 :00 No [id number] 100mL 100 mL, Intravenou s, ONCE, 1 dose, On Thu10/30/21 at 1445, Routine [facility] lisinopril 10 mg tablet 10-17 00:00: 00 No 1mg amlodipine 10 mg tablet 2 00:00: 00 No 1mg lisinopril 10 mg tablet 2020-09 0-13 00:00: 00 No 1mg amlodipine 10 mg tablet 2020-09 0-13 00:00: 00 No 1mg NaCl 0.9% (NS) bolus infusion 1,000 mL 05-24 03:45: 00 05-24 05:00 :00 No 1000mL at 999 mL/hr, 1,000 mL, IV Piggyback, ONCE, 1 dose, [facility] 05/23/21 at 2245, STAT [facility] NaCl 0.9% (NS) bolus infusion 1,000 mL 05-24 03:00: 00 05-24 03:00 :00 No 1000mL at 999 mL/hr, 1,000 mL, IV Piggyback, ONCE, 1 dose, [facility] 05/23/21 at 2200, STAT [facility] NaCl 0.9% (NS) bolus infusion 500 mL 05-23 03:15: 00 05-23 15:14 :00 No 500mL at 999 mL/hr, 500 mL, IV Piggyback, ONCE, 1 dose, [facility] 05/22/21 at 2215, STAT [facility] dexamethaso ne (DECADRON PHOSPHATE) injection 10 mg 04-02 03:30: 00 04-02 02:47 :00 No 10mg 10 mg, Intramuscu lar, ONCE, 1 dose, 04/01/21 at 2230, STAT [facility] ketorolac (TORADOL) injection 60 mg 03-18 04:00: 00 03-18 02:56 :00 No 60mg 60 mg, Intramuscu lar, ONCE, 1 dose, [place] 03/17/21 at 2300, VASILYI
Fa culty member approving Restricted medication : EMERGENCY ROOM, [facility] ibuprofen 800 mg tablet 03-17 00:00: 00 05-23 00:00 :00 No [id number] 800mg Take 1 tablet by mouth every 8 (eight) hours as needed for Pain (scale 4-6). [facility] acetaminoph en-codeine 300-30 mg tablet 03-17 00:00: 00 03-25 04:59 :00 No [id number] 1{tbl} Take 1 tablet by mouth every 6 (six) hours as needed for Pain (scale 7-10) for up to 7 days. Indication s: acute pain [facility] benzonatate (TESSALON PERLES) capsule 200 mg 3-04 05:00: 00 11-15 04:51 :00 No 200mg 200 mg, Oral, ONCE, 1 dose, 11/14/20 at 2300, Routine [facility] Dose Unknown 11-14 00:00: 00 No Dose Unknown 11-14 00:00: 00 No benzonatate 100 mg capsule 11-14 00:00: 00 05-23 00:00 :00 No [id number] 100mg Take 1 capsule by mouth 3 (three) times daily as needed for Cough. [facility] diphenhydrA MINE (BENADRYL) injection 25 mg 09-30 16:00: 00 09-30 15:17 :00 No 25mg 25 mg, Slow IV Push, ONCE, 1 dose, 09/30/20 at 1000, STAT [facility] metoclopram jerilyn HCl (REGLAN) injection 10 mg 09-30 16:00: 00 09-30 15:17 :00 No 10mg 10 mg, Slow IV Push, ONCE, 1 dose, 09/30/20 at 1000, VASILIY [facility] NaCl 0.9% (NS) bolus infusion 1,000 mL 09-30 15:00: 00 09-30 16:45 :00 No 1000mL at 999 mL/hr, 1,000 mL, IV Infusion, ONCE, 1 dose, 09/30/20 at 0900, VASILIY [facility] amLODIPine (NORVASC) 10 mg tablet 09-30 00:00: 00 Yes [id number] 10mg Take 1 tablet by mouth daily. [facility] lisinopriL 10 mg tablet 09-30 00:00: 00 11-01 00:00 :00 No [id number] 10mg Take 1 tablet by mouth at bedtime. [facility] Dose Unknown 2019-09 00:00: 00 No Dose Unknown 2019-09 00:00: 00 No maalox:diph enhydrAMINE :lidocaine 2 % viscous 1:1:1 (FIRST-MOUT HWASH BLM) oral suspension 15 mL 2019-09 03:30: 00 07-02 03:30 :00 No 15mL 15 mL, Oral, ONCE, 1 dose, 07/01/20 at 2230, VASILIY [facility] sodium chloride (NS) injection 5 mL 2019-09 03:00: 48 Yes 5mL 5 mL, Intravenou s, PRN, Starting 07/01/20 at 2200, Until Discontinu ed, Routine, IV line flushing [facility] sucralfate 1 gram tablet 2019-09 00:00: 00 07-16 05:59 :00 No [id number] 1g Take 1 tablet by mouth before meals and at bedtime for 14 days. [facility] lisinopril 10 mg tablet 04-12 00:00: 00 No 1mg amlodipine 10 mg tablet 04-12 00:00: 00 No 1mg No known medications No [facility] Immunizations Ordered Immunization Name Filled Immunization Name Date Status Comments Source SARS-COV-2 COVID-19 PFIZER VACCINE 2021-05-07 00:00:00 Completed [facility] SARS-COV-2 COVID-19 PFIZER VACCINE 2021-05-07 00:00:00 Completed [facility] SARS-COV-2 COVID-19 PFIZER VACCINE 2021-05-07 00:00:00 Completed [facility] SARS-COV-2 COVID-19 PFIZER VACCINE 2021-05-07 00:00:00 Completed [facility] SARS-COV-2 COVID-19 PFIZER VACCINE 2021-05-07 00:00:00 Completed [facility] SARS-COV-2 COVID-19 PFIZER VACCINE 2021-05-07 00:00:00 Completed [facility] SARS-COV-2 COVID-19 PFIZER VACCINE 2021-05-07 00:00:00 Completed [facility] SARS-COV-2 COVID-19 PFIZER VACCINE 2021-05-07 00:00:00 Completed [facility] SARS-COV-2 COVID-19 PFIZER VACCINE 2021-05-07 00:00:00 Completed [facility] SARS-COV-2 COVID-19 PFIZER VACCINE 2021-05-07 00:00:00 Completed [facility] SARS-COV-2 COVID-19 PFIZER VACCINE 2021-05-07 00:00:00 Completed [facility] SARS-COV-2 COVID-19 PFIZER VACCINE 2021-05-07 00:00:00 Completed [facility] SARS-COV-2 COVID-19 PFIZER VACCINE 2021-05-07 00:00:00 Completed [facility] SARS-COV-2 COVID-19 PFIZER VACCINE 2021-05-07 00:00:00 Completed [facility] SARS-COV-2 COVID-19 PFIZER VACCINE 2021-05-07 00:00:00 Completed [facility] SARS-COV-2 COVID-19 PFIZER VACCINE 2021-05-07 00:00:00 Completed [facility] SARS-COV-2 COVID-19 PFIZER VACCINE 2021-05-07 00:00:00 Completed [facility] SARS-COV-2 COVID-19 PFIZER VACCINE 2021-05-07 00:00:00 Completed [facility] SARS-COV-2 COVID-19 PFIZER VACCINE 2021-05-07 00:00:00 Completed [facility] SARS-COV-2 COVID-19 PFIZER VACCINE 2021-05-07 00:00:00 Completed [facility] SARS-COV-2 COVID-19 PFIZER VACCINE 2021-05-07 00:00:00 Completed [facility] SARS-COV-2 COVID-19 PFIZER VACCINE 2021-05-07 00:00:00 Completed [facility] SARS-COV-2 COVID-19 PFIZER VACCINE 2021-05-07 00:00:00 Completed [facility] SARS-COV-2 COVID-19 PFIZER VACCINE 2021-05-07 00:00:00 Completed [facility] SARS-COV-2 COVID-19 PFIZER VACCINE 2021-05-07 00:00:00 Completed [facility] SARS-COV-2 COVID-19 PFIZER VACCINE Unknown Completed [facility] SARS-COV-2 COVID-19 PFIZER VACCINE Unknown Completed [facility] SARS-COV-2 COVID-19 PFIZER VACCINE Unknown Completed [facility] SARS-COV-2 COVID-19 PFIZER VACCINE Unknown Completed [facility] SARS-COV-2 COVID-19 PFIZER VACCINE Unknown Completed [facility] SARS-COV-2 COVID-19 PFIZER VACCINE Unknown Completed [facility] SARS-COV-2 COVID-19 PFIZER VACCINE Unknown Completed [facility] SARS-COV-2 COVID-19 PFIZER VACCINE Unknown Completed [facility] SARS-COV-2 COVID-19 PFIZER VACCINE Unknown Completed [facility] SARS-COV-2 COVID-19 PFIZER VACCINE Unknown Completed [facility] SARS-COV-2 COVID-19 PFIZER VACCINE Unknown Completed [facility] SARS-COV-2 COVID-19 PFIZER VACCINE Unknown Completed [facility] SARS-COV-2 COVID-19 PFIZER VACCINE Unknown Completed [facility] SARS-COV-2 COVID-19 PFIZER VACCINE Unknown Completed [facility] SARS-COV-2 COVID-19 PFIZER VACCINE Unknown Completed [facility] SARS-COV-2 COVID-19 PFIZER VACCINE Unknown Completed [facility] SARS-COV-2 COVID-19 PFIZER VACCINE Unknown Completed [facility] SARS-COV-2 COVID-19 PFIZER VACCINE Unknown Completed [facility] SARS-COV-2 COVID-19 PFIZER VACCINE Unknown Completed [facility] SARS-COV-2 COVID-19 PFIZER VACCINE Unknown Completed [facility] SARS-COV-2 COVID-19 PFIZER VACCINE Unknown Completed [facility] SARS-COV-2 COVID-19 PFIZER VACCINE Unknown Completed [facility] Vital Signs Vital Name Observation Time Observation Value Comments S ource Systolic blood pressure 2024-04-08 21:13:00 143 mm[Hg] Luz Maria walden - External Diastolic blood pressure 2024-04-08 21:13:00 87 mm[Hg] Luz Maria walden - External Heart rate 2024-04-08 21:13:00 79 /min Kelse y Seybold - External Body temperature 2024-04-08 21:13:00 36.78 Cindi Luz Maria Seybold - External Respiratory rate 2024-04-08 21:13:00 16 /min Luz Maria Seybold - External Body height 2024-04-08 21:13:00 195.6 cm Kelsi hampton Seybold - External Body weight 2024-04-08 21:13:00 118.389 kg Kelsi ey Seybold - External BMI 2024-04-08 21:13:00 30.95 kg/m2 Kelsi hampton Seybold - External Oxygen saturation in Arterial blood by Pulse oximetry 2024-04-08 21:13:00 100 /min Luz Maria Ingramybo ld - External Systolic blood pressure 2024-04-02 17:52:00 140 mm[Hg] [facility] Diastolic blood pressure 2024-04-02 17:52:00 93 mm[Hg] [facility] Heart rate 2024-04-02 17:52:00 80 /min [facility] Body temperature 2024-04-02 17:52:00 37 Cindi [facility] Respiratory rate 2024-04-02 17:52:00 20 /min [facility] Oxygen saturation in Arterial blood by Pulse oximetry 2024-04-02 17:52:00 98 /min [facility] Body height 2024-04-02 13:32:00 195.6 cm [facility] Body weight 2024-04-02 13:32:00 120.3 kg [facility] BMI 2024-04-02 13:32:00 31.45 kg/m2 [facility] Systolic blood pressure 2024-03-30 13:10:00 119 mm[Hg] Luz Maria Seybo ld - External Diastolic blood pressure 2024-03-30 13:10:00 77 mm[Hg] Luz Maria Seybo ld - External Heart rate 2024-03-30 13:10:00 83 /min Manojse y Seybold - External Body temperature 2024-03-30 [...] Systolic blood pressure 2024-02-21 04:48:00 132 mm[Hg] [facility] Diastolic blood pressure 2024-02-21 04:48:00 82 mm[Hg] [facility] Heart rate 2024-02-21 04:48:00 74 /min [facility] Body temperature 2024-02-21 04:48:00 36.72 Cindi [facility] Respiratory rate 2024-02-21 04:48:00 15 /min [facility] Oxygen saturation in Arterial blood by Pulse oximetry 2024-02-21 04:48:00 98 /min [facility] Body height 2024-02-21 02:43:00 195.6 cm [facility] Body weight 2024-02-21 02:43:00 115.667 kg [facility] BMI 2024-02-21 02:43:00 30.24 kg/m2 [facility] Systolic blood pressure 2023-12-17 20:32:00 112 mm[Hg] Luz Maria Ingramybo ld - External Diastolic blood pressure 2023-12-17 [...] Systolic blood pressure 2023-12-10 03:57:00 157 mm[Hg] [facility] Diastolic blood pressure 2023-12-10 03:57:00 83 mm[Hg] [facility] Heart rate 2023-12-10 03:57:00 70 /min [facility] Respiratory rate 2023-12-10 03:57:00 16 /min [facility] Oxygen saturation in Arterial blood by Pulse oximetry 2023-12-10 03:57:00 99 /min [facility] Body temperature 2023-12-10 01:12:00 36.83 Cindi [facility] Body height 2023-12-10 01:12:00 195.6 cm [facility] Body weight 2023-12-10 01:12:00 122.471 kg [facility] BMI 2023-12-10 01:12:00 32.02 kg/m2 [facility] Systolic blood pressure 2023-10-06 20:55:00 130 mm[Hg] Luz Maria Riverao ld - External Diastolic blood pressure 2023-10-06 [...] oximetry 2023-10-06 20:14:00 94 /min Luz Maria Saucedo ld - External Systolic blood pressure 2023-08-04 05:38:00 164 mm[Hg] [facility] Diastolic blood pressure 2023-08-04 05:38:00 99 mm[Hg] [facility] Heart rate 2023-08-04 05:38:00 70 /min [facility] Body temperature 2023-08-04 05:38:00 37 Cindi [facility] Respiratory rate 2023-08-04 05:38:00 18 /min [facility] Oxygen saturation in Arterial blood by Pulse oximetry 2023-08-04 05:38:00 98 /min [facility] Body height 2023-08-04 02:22:00 195.6 cm [facility] Body weight 2023-08-04 02:22:00 118.389 kg [facility] BMI 2023-08-04 02:22:00 30.95 kg/m2 [facility] Systolic blood pressure 2023-07-25 18:00:00 146 mm[Hg] [facility] Diastolic blood pressure 2023-07-25 18:00:00 90 mm[Hg] [facility] Heart rate 2023-07-25 18:00:00 75 /min [facility] Respiratory rate 2023-07-25 18:00:00 18 /min [facility] Oxygen saturation in Arterial blood by Pulse oximetry 2023-07-25 18:00:00 95 /min [facility] Body temperature 2023-07-25 15:57:00 37.61 Cindi [facility] Body height 2023-07-25 15:57:00 195.6 cm [facility] Body weight 2023-07-25 15:57:00 118.842 kg [facility] BMI 2023-07-25 15:57:00 31.07 kg/m2 [facility] Systolic blood pressure 2023-07-24 21:05:00 140 mm[Hg] [facility] Diastolic blood pressure 2023-07-24 21:05:00 94 mm[Hg] [facility] Heart rate 2023-07-24 21:05:00 71 /min [facility] Body temperature 2023-07-24 21:05:00 36.67 Cindi [facility] Respiratory rate 2023-07-24 21:05:00 18 /min [facility] Oxygen saturation in Arterial blood by Pulse oximetry 2023-07-24 21:05:00 97 /min [facility] Body weight 2023-07-24 18:35:00 115.667 kg [facility] BMI 2023-07-24 18:35:00 30.24 kg/m2 [facility] Systolic blood pressure 2023-07-12 03:30:00 156 mm[Hg] [facility] Diastolic blood pressure 2023-07-12 03:30:00 101 mm[Hg] [facility] Heart rate 2023-07-12 03:30:00 90 /min [facility] Respiratory rate 2023-07-12 03:30:00 20 /min [facility] Oxygen saturation in Arterial blood by Pulse oximetry 2023-07-12 03:30:00 94 /min [facility] Body temperature 2023-07-12 01:57:00 36.67 Cindi [facility] Body weight 2023-07-12 01:57:00 115.667 kg [facility] BMI 2023-07-12 01:57:00 30.24 kg/m2 [facility] Systolic blood pressure 2023-07-10 13:34:00 140 mm[Hg] [facility] Diastolic blood pressure 2023-07-10 13:34:00 95 mm[Hg] [facility] Heart rate 2023-07-10 13:34:00 76 /min [facility] Body temperature 2023-07-10 13:34:00 35.94 Cindi [facility] Body height 2023-07-10 13:34:00 195.6 cm [facility] Body weight 2023-07-10 13:34:00 118.298 kg [facility] BMI 2023-07-10 13:34:00 30.93 kg/m2 [facility] Oxygen saturation in Arterial blood by Pulse oximetry 2023-07-10 13:34:00 97 /min [facility] Systolic blood pressure 2023-07-08 13:43:00 140 mm[Hg] Luz Maria Seybo ld - External Diastolic blood pressure 2023-07-08 13:43:00 100 mm[Hg] Luz Maria Seybo ld - External Heart rate 2023-07-08 13:43:00 68 /min Kel y Seybold - External Body temperature 2023-07-08 13:43:00 36.67 Cindi Luz Maria Ingramybold - External Respiratory rate 2023-07-08 13:43:00 16 /min Luz Maria Ingramybold - External Body height 2023-07-08 13:43:00 195.6 cm Kelsi hampton Seybold - External Body weight 2023-07-08 13:43:00 116.121 kg Kelsi ey Seybold - External BMI 2023-07-08 13:43:00 30.36 kg/m2 Kelsi ey Seybold - External Systolic blood pressure 2023-07-03 12:45:10 149 mm[Hg] [facility] Diastolic blood pressure 2023-07-03 12:45:10 88 mm[Hg] [facility] Heart rate 2023-07-03 12:45:10 88 /min [facility] Respiratory rate 2023-07-03 12:45:10 16 /min [facility] Oxygen saturation in Arterial blood by Pulse oximetry 2023-07-03 12:45:10 97 /min [facility] Body temperature 2023-07-03 09:47:00 36.78 Cindi [facility] Body height 2023-07-03 09:47:00 195.6 cm [facility] Body weight 2023-07-03 09:47:00 113.853 kg [facility] BMI 2023-07-03 09:47:00 29.76 kg/m2 [facility] Systolic blood pressure 2023-05-20 20:08:00 132 mm[Hg] Luz Maria Ingramybo ld - External Diastolic blood pressure 2023-05-20 20:08:00 84 mm[Hg] Luz Maria Saucedo ld - External Heart rate 2023-05-20 20:08:00 76 /min Sallie Ng - External Body temperature 2023-05-20 20:08:00 37 Cindi Luz Maria Ng - External Respiratory rate 2023-05-20 20:08:00 16 /min Luz Maria Ng - External Body height 2023-05-20 20:08:00 195.6 cm Kelsi Ng - External Body weight 2023-05-20 20:08:00 116.121 kg Kelsi Riveraold - External BMI 2023-05-20 20:08:00 30.36 kg/m2 Kelsi hampton Seybold - External Systolic blood pressure 2023-05-08 03:30:00 133 mm[Hg] [facility] Diastolic blood pressure 2023-05-08 03:30:00 87 mm[Hg] [facility] Heart rate 2023-05-08 03:30:00 70 /min [facility] Respiratory rate 2023-05-08 03:30:00 18 /min [facility] Oxygen saturation in Arterial blood by Pulse oximetry 2023-05-08 03:30:00 97 /min [facility] Body temperature 2023-05-07 22:36:00 36.72 Cindi [facility] Body weight 2023-05-07 22:36:00 113.853 kg [facility] BMI 2023-05-07 22:36:00 30.55 kg/m2 [facility] Systolic blood pressure 2023-05-02 05:00:00 134 mm[Hg] [facility] Diastolic blood pressure 2023-05-02 05:00:00 85 mm[Hg] [facility] Heart rate 2023-05-02 05:00:00 72 /min [facility] Oxygen saturation in Arterial blood by Pulse oximetry 2023-05-02 05:00:00 98 /min [facility] Body temperature 2023-05-02 02:28:00 37.28 Cindi [facility] Respiratory rate 2023-05-02 02:28:00 20 /min [facility] Body height 2023-05-02 02:28:00 193 cm [facility] Body weight 2023-05-02 02:28:00 113.399 kg [facility] BMI 2023-05-02 02:28:00 30.43 kg/m2 [facility] Systolic blood pressure 2023-04-22 18:02:36 130 mm[Hg] [facility] Diastolic blood pressure 2023-04-22 18:02:36 80 mm[Hg] [facility] Heart rate 2023-04-22 18:02:36 68 /min [facility] Body temperature 2023-04-22 18:02:36 36.78 Cindi [facility] Respiratory rate 2023-04-22 18:02:36 17 /min [facility] Oxygen saturation in Arterial blood by Pulse oximetry 2023-04-22 18:02:36 96 /min [facility] Body height 2023-04-22 08:58:00 195.6 cm [facility] Body weight 2023-04-22 08:58:00 113.944 kg [facility] BMI 2023-04-22 08:58:00 29.79 kg/m2 [facility] Systolic blood pressure 2023-04-16 13:30:00 142 mm[Hg] [facility] Diastolic blood pressure 2023-04-16 13:30:00 98 mm[Hg] [facility] Heart rate 2023-04-16 13:30:00 65 /min [facility] Respiratory rate 2023-04-16 13:30:00 17 /min [facility] Oxygen saturation in Arterial blood by Pulse oximetry 2023-04-16 13:30:00 98 /min [facility] Systolic blood pressure 2023-04-16 12:32:00 155 mm[Hg] [facility] Diastolic blood pressure 2023-04-16 12:32:00 108 mm[Hg] [facility] Heart rate 2023-04-16 12:32:00 61 /min [facility] Respiratory rate 2023-04-16 12:32:00 18 /min [facility] Oxygen saturation in Arterial blood by Pulse oximetry 2023-04-16 12:32:00 97 /min [facility] Body temperature 2023-04-16 12:09:00 36.72 Cindi [facility] Body weight 2023-04-16 12:09:00 118.842 kg [facility] BMI 2023-04-16 12:09:00 31.89 kg/m2 [facility] Systolic blood pressure 2023-04-01 08:00:00 130 mm[Hg] [facility] Diastolic blood pressure 2023-04-01 08:00:00 75 mm[Hg] [facility] Heart rate 2023-04-01 08:00:00 75 /min [facility] Respiratory rate 2023-04-01 08:00:00 19 /min [facility] Oxygen saturation in Arterial blood by Pulse oximetry 2023-04-01 08:00:00 96 /min [facility] Body temperature 2023-04-01 05:02:00 36.28 Cindi [facility] Body height 2023-04-01 05:02:00 193 cm [facility] Body weight 2023-04-01 05:02:00 111.585 kg [facility] BMI 2023-04-01 05:02:00 29.94 kg/m2 [facility] Systolic blood pressure 2023-02-13 21:00:00 157 mm[Hg] [facility] Diastolic blood pressure 2023-02-13 21:00:00 89 mm[Hg] [facility] Heart rate 2023-02-13 21:00:00 102 /min [facility] Body temperature 2023-02-13 21:00:00 37.89 Icndi [facility] Respiratory rate 2023-02-13 21:00:00 16 /min [facility] Body weight 2023-02-13 21:00:00 124.286 kg [facility] BMI 2023-02-13 21:00:00 33.35 kg/m2 [facility] Oxygen saturation in Arterial blood by Pulse oximetry 2023-02-13 21:00:00 97 /min [facility] Systolic blood pressure 2022-12-09 06:33:00 152 mm[Hg] [facility] Diastolic blood pressure 2022-12-09 06:33:00 96 mm[Hg] [facility] Heart rate 2022-12-09 06:33:00 60 /min [facility] Respiratory rate 2022-12-09 06:33:00 11 /min [facility] Oxygen saturation in Arterial blood by Pulse oximetry 2022-12-09 06:33:00 96 /min [facility] Body temperature 2022-12-09 04:51:00 37 Cindi [facility] Body height 2022-12-09 04:51:00 193 cm [facility] Body weight 2022-12-09 04:51:00 116.121 kg [facility] BMI 2022-12-09 04:51:00 31.16 kg/m2 [facility] Systolic blood pressure 2022-11-25 04:51:00 148 mm[Hg] [facility] Diastolic blood pressure 2022-11-25 04:51:00 96 mm[Hg] [facility] Heart rate 2022-11-25 04:51:00 71 /min [facility] Body temperature 2022-11-25 04:51:00 37 Cindi [facility] Respiratory rate 2022-11-25 04:51:00 16 /min [facility] Body height 2022-11-25 04:51:00 193 cm [facility] Body weight 2022-11-25 04:51:00 113.399 kg [facility] BMI 2022-11-25 04:51:00 30.43 kg/m2 [facility] Oxygen saturation in Arterial blood by Pulse oximetry 2022-11-25 04:51:00 97 /min [facility] Systolic blood pressure 2022-10-12 21:48:00 152 mm[Hg] [facility] Diastolic blood pressure 2022-10-12 21:48:00 82 mm[Hg] [facility] Heart rate 2022-10-12 21:48:00 70 /min [facility] Body temperature 2022-10-12 21:48:00 36.89 Cindi [facility] Respiratory rate 2022-10-12 21:48:00 18 /min [facility] Oxygen saturation in Arterial blood by Pulse oximetry 2022-10-12 21:48:00 94 /min [facility] Body height 2022-10-11 17:50:00 193 cm [facility] Body weight 2022-10-11 17:50:00 113.399 kg [facility] BMI 2022-10-11 17:50:00 30.43 kg/m2 [facility] Systolic blood pressure 2022-10-09 07:25:23 138 mm[Hg] [facility] Diastolic blood pressure 2022-10-09 07:25:23 86 mm[Hg] [facility] Heart rate 2022-10-09 07:25:23 73 /min [facility] Respiratory rate 2022-10-09 07:25:23 20 /min [facility] Oxygen saturation in Arterial blood by Pulse oximetry 2022-10-09 07:25:23 98 /min [facility] Body temperature 2022-10-09 04:12:00 37.28 Cindi [facility] Body height 2022-10-09 04:12:00 193 cm [facility] Body weight 2022-10-09 04:12:00 113.399 kg [facility] BMI 2022-10-09 04:12:00 30.43 kg/m2 [facility] Systolic blood pressure 2022-08-20 14:40:00 147 mm[Hg] [facility] Diastolic blood pressure 2022-08-20 14:40:00 95 mm[Hg] [facility] Heart rate 2022-08-20 14:40:00 75 /min [facility] Body temperature 2022-08-20 14:40:00 36.89 Cindi [facility] Respiratory rate 2022-08-20 14:40:00 20 /min [facility] Body height 2022-08-20 14:40:00 190.5 cm [facility] Body weight 2022-08-20 14:40:00 115.667 kg [facility] BMI 2022-08-20 14:40:00 31.87 kg/m2 [facility] Oxygen saturation in Arterial blood by Pulse oximetry 2022-08-20 14:40:00 98 /min [facility] height 2022-07-11 09:30:00 77 [in_i] Commo n [facility] weight 2022-07-11 09:30:00 253.6 [lb_av] Co mmon [facility] temperature 2022-07-11 09:30:00 98.3 [degF] Com mon [facility] bmi 2022-07-11 09:30:00 30.07 kg/m2 Comm on [facility] oximetry 2022-07-11 09:30:00 99 % Commo n [facility] respiratory rate 2022-07-11 09:30:00 18 /min [facility] blood pressure systolic 2022-07-11 09:30:00 135 mm[Hg] [facility] blood pressure diastolic 2022-07-11 09:30:00 81 mm[Hg] [facility] Systolic blood pressure 2022-06-09 15:00:00 141 mm[Hg] [facility] Diastolic blood pressure 2022-06-09 15:00:00 94 mm[Hg] [facility] Heart rate 2022-06-09 15:00:00 59 /min [facility] Respiratory rate 2022-06-09 15:00:00 16 /min [facility] Oxygen saturation in Arterial blood by Pulse oximetry 2022-06-09 15:00:00 97 /min [facility] Body temperature 2022-06-09 11:56:00 36.17 Cindi [facility] Body height 2022-06-09 11:56:00 195.6 cm [facility] Body weight 2022-06-09 11:56:00 127.007 kg [facility] BMI 2022-06-09 11:56:00 33.20 kg/m2 [facility] Systolic blood pressure 2021-11-01 17:12:00 152 mm[Hg] [facility] Diastolic blood pressure 2021-11-01 17:12:00 89 mm[Hg] [facility] Heart rate 2021-11-01 17:12:00 72 /min [facility] Body temperature 2021-11-01 17:12:00 36.17 Cindi [facility] Respiratory rate 2021-11-01 17:12:00 18 /min [facility] Oxygen saturation in Arterial blood by Pulse oximetry 2021-11-01 17:12:00 94 /min [facility] Body height 2021-10-30 23:19:00 195.6 cm [facility] Body weight 2021-10-30 23:19:00 116.983 kg [facility] BMI 2021-10-30 23:19:00 30.58 kg/m2 [facility] Systolic blood pressure 2021-05-24 06:00:00 135 mm[Hg] [facility] Diastolic blood pressure 2021-05-24 06:00:00 97 mm[Hg] [facility] Heart rate 2021-05-24 06:00:00 88 /min [facility] Respiratory rate 2021-05-24 06:00:00 21 /min [facility] Oxygen saturation in Arterial blood by Pulse oximetry 2021-05-24 06:00:00 94 /min [facility] Body temperature 2021-05-24 01:47:00 37.28 Cindi [facility] Body height 2021-05-24 01:47:00 195.6 cm [facility] Body weight 2021-05-24 01:47:00 127.461 kg [facility] BMI 2021-05-24 01:47:00 33.32 kg/m2 [facility] Systolic blood pressure 2021-05-22 23:36:00 154 mm[Hg] [facility] Diastolic blood pressure 2021-05-22 23:36:00 112 mm[Hg] [facility] Heart rate 2021-05-22 23:36:00 97 /min [facility] Body temperature 2021-05-22 23:36:00 36 Cindi [facility] Respiratory rate 2021-05-22 23:36:00 19 /min [facility] Body height 2021-05-22 23:36:00 195.6 cm [facility] Body weight 2021-05-22 23:36:00 127.007 kg [facility] BMI 2021-05-22 23:36:00 33.20 kg/m2 [facility] Oxygen saturation in Arterial blood by Pulse oximetry 2021-05-22 23:36:00 96 /min [facility] Systolic blood pressure 2021-05-02 00:01:00 157 mm[Hg] [facility] Diastolic blood pressure 2021-05-02 00:01:00 93 mm[Hg] [facility] Heart rate 2021-05-02 00:01:00 84 /min [facility] Body temperature 2021-05-02 00:01:00 36.56 Cindi [facility] Respiratory rate 2021-05-02 00:01:00 18 /min [facility] Body weight 2021-05-02 00:01:00 126.554 kg [facility] BMI 2021-05-02 00:01:00 33.08 kg/m2 [facility] Oxygen saturation in Arterial blood by Pulse oximetry 2021-05-02 00:01:00 97 /min [facility] Systolic blood pressure 2021-04-02 01:01:00 144 mm[Hg] [facility] Diastolic blood pressure 2021-04-02 01:01:00 94 mm[Hg] [facility] Heart rate 2021-04-02 01:01:00 89 /min [facility] Body temperature 2021-04-02 01:01:00 37.06 Cindi [facility] Respiratory rate 2021-04-02 01:01:00 18 /min [facility] Body weight 2021-04-02 01:01:00 129.729 kg [facility] BMI 2021-04-02 01:01:00 33.91 kg/m2 [facility] Oxygen saturation in Arterial blood by Pulse oximetry 2021-04-02 01:01:00 100 /min [facility] Systolic blood pressure 2021-04-02 01:01:00 144 mm[Hg] [facility] Diastolic blood pressure 2021-04-02 01:01:00 94 mm[Hg] [facility] Heart rate 2021-04-02 01:01:00 89 /min [facility] Body temperature 2021-04-02 01:01:00 37.06 Cindi [facility] Respiratory rate 2021-04-02 01:01:00 18 /min [facility] Body weight 2021-04-02 01:01:00 129.729 kg [facility] 2021-04-02 01:01:00 33.91 kg/m2 [facility] Oxygen saturation in Arterial blood by Pulse oximetry 2021-04-02 01:01:00 100 /min [facility] Systolic blood pressure 2021-03-18 03:16:13 140 mm[Hg] [facility] Diastolic blood pressure 2021-03-18 03:16:13 80 mm[Hg] [facility] Heart rate 2021-03-18 03:16:13 80 /min [facility] Body temperature 2021-03-18 03:16:13 36.67 Cindi [facility] Respiratory rate 2021-03-18 03:16:13 19 /min [facility] Oxygen saturation in Arterial blood by Pulse oximetry 2021-03-18 03:16:13 99 /min [facility] Body weight 2021-03-18 01:02:00 129.729 kg [facility] BMI 2021-03-18 01:02:00 33.91 kg/m2 [facility] Systolic blood pressure 2021-03-18 03:16:13 140 mm[Hg] [facility] Diastolic blood pressure 2021-03-18 03:16:13 80 mm[Hg] [facility] Heart rate 2021-03-18 03:16:13 80 /min [facility] Body temperature 2021-03-18 03:16:13 36.67 Cindi [facility] Respiratory rate 2021-03-18 03:16:13 19 /min [facility] Oxygen saturation in Arterial blood by Pulse oximetry 2021-03-18 03:16:13 99 /min [facility] Body weight 2021-03-18 01:02:00 129.729 kg [facility] BMI 2021-03-18 01:02:00 33.91 kg/m2 [facility] Oxygen saturation in Arterial blood by Pulse oximetry 2020-11-15 04:31:00 97 /min [facility] Systolic blood pressure 2020-11-15 03:25:00 173 mm[Hg] [facility] Diastolic blood pressure 2020-11-15 03:25:00 97 mm[Hg] [facility] Heart rate 2020-11-15 03:25:00 84 /min [facility] Body temperature 2020-11-15 03:25:00 36.67 Cindi [facility] Respiratory rate 2020-11-15 03:25:00 20 /min [facility] Body weight 2020-11-15 03:25:00 132.45 kg [facility] BMI 2020-11-15 03:25:00 34.63 kg/m2 [facility] Oxygen saturation in Arterial blood by Pulse oximetry 2020-11-15 04:31:00 97 /min [facility] Systolic blood pressure 2020-11-15 03:25:00 173 mm[Hg] [facility] Diastolic blood pressure 2020-11-15 03:25:00 97 mm[Hg] [facility] Heart rate 2020-11-15 03:25:00 84 /min [facility] Body temperature 2020-11-15 03:25:00 36.67 Cindi [facility] Respiratory rate 2020-11-15 03:25:00 20 /min [facility] Body weight 2020-11-15 03:25:00 132.45 kg [facility] BMI 2020-11-15 03:25:00 34.63 kg/m2 [facility] Systolic blood pressure 2020-09-30 16:30:00 121 mm[Hg] [facility] Diastolic blood pressure 2020-09-30 16:30:00 66 mm[Hg] [facility] Heart rate 2020-09-30 16:30:00 72 /[facility] Res[facility] 2020-09-30 16:30:00 19 /min [facility] Oxygen saturation in Arterial blood by Pulse oximetry 2020-09-30 16:30:00 94 /min [facility] Body weight 2020-09-30 14:20:00 136.079 kg [facility] BMI 2020-09-30 14:20:00 35.57 kg/m2 [facility] Body temperature 2020-09-30 14:10:00 37.06 Cindi [facility] Systolic blood pressure 2020-09-30 16:30:00 121 mm[Hg] [facility] Diastolic blood pressure 2020-09-30 16:30:00 66 mm[Hg] [facility] Heart rate 2020-09-30 16:30:00 72 /min [facility] Respiratory rate 2020-09-30 16:30:00 19 /min [facility] Oxygen saturation in Arterial blood by Pulse oximetry 2020-09-30 16:30:00 94 /min [facility] Body weight 2020-09-30 14:20:00 136.079 kg [facility] BMI 2020-09-30 14:20:00 35.57 kg/m2 [facility] Body temperature 2020-09-30 14:10:00 37.06 Cindi [facility] Systolic blood pressure 2020-07-02 04:00:00 132 mm[Hg] [facility] Diastolic blood pressure 2020-07-02 04:00:00 84 mm[Hg] [facility] Heart rate 2020-07-02 04:00:00 89 /[facility] in Arterial blood by Pulse oximetry 2020-07-02 04:00:00 95 /min [facility] Body temperature 2020-07-02 02:53:00 36.94 Cindi [facility] Respiratory rate 2020-07-02 02:53:00 18 /min [facility] Body height 2020-07-02 02:53:00 195.6 cm [facility] Body weight 2020-07-02 02:53:00 136.079 kg [facility] BMI 2020-07-02 02:53:00 35.57 kg/m2 [facility] Systolic blood pressure 2020-07-02 04:00:00 132 mm[Hg] [facility] Diastolic blood pressure 2020-07-02 04:00:00 84 mm[Hg] [facility] Heart rate 2020-07-02 04:00:00 89 /min [facility] in Arterial blood by Pulse oximetry 2020-07-02 04:00:00 95 /min [facility] Body temperature 2020-07-02 02:53:00 36.94 Cindi [facility] Respiratory rate 2020-07-02 02:53:00 18 /min [facility] Body height 2020-07-02 02:53:00 195.6 cm [facility] Body weight 2020-07-02 02:53:00 136.079 kg [facility] BMI 2020-07-02 02:53:00 35.57 kg/m2 [facility] BP Systolic 2022-07-09 10:22:00 158 [...] PELVIS W CONTRAST 2024-04-02 14:49:11 Trevor Taylor [facility] URINALYSIS 2024-04-02 14:18:00 Trevor Taylor [facility] LIPASE 2024-04-02 14:12:00 Trevor Talyor [facility] MAGNESIUM 2024-04-02 14:12:00 [facility] TROPONIN I 2024-04-02 14:12:00 Trevor [facility] COMP. METABOLIC PANEL ([id number]) 2024-04-02 14:12:00 Trevor Taylor [facility] LIPID PANEL (02116)(TOTAL CHOLESTEROL, TRIGLYCERIDES, HDL) 2024-04-02 14:12:00 Trevor Taylor [facility] CBC WITH DIFF 2024-04-02 14:12:00 Claudia, K Tiffanie [facility] LIPASE 2024-02-21 03:08:00 Leti Rivas [facility] COMP. METABOLIC PANEL ([id number]) 2024-02-21 03:08:00 Leti Rivas [facility] CBC WITH DIFF 2024-02-21 03:08:00 Leti Rivas [facility] URINALYSIS 2024-02-21 03:08:00 Leti Rivas [facility] CT ABDOMEN PELVIS W CONTRAST 2023-12-10 02:36:24 Abraham Orantes [facility] COMP. METABOLIC PANEL ([id number]) 2023-12-10 02:05:00 Abraham Orantes [facility] CBC WITH DIFF 2023-12-10 02:05:00 Abraham Orantes [facility] URINALYSIS 2023-12-10 02:05:00 Abraham Orantes [facility] CT ABDOMEN PELVIS WO CONTRAST 2023-08-04 04:23:15 Abraham Orantes [facility] BASIC METABOLIC PANEL (NA, K, CL, CO2, GLUCOSE, BUN, CREATININE, CA) 2023-08-04 02:57:00 Abraham Orantes [facility] CBC WITH DIFF 2023-08-04 02:57:00 Abraham Orantes [facility] URINALYSIS 2023-08-04 02:57:00 Abraham Orantes [facility] NOTICE OF PRIVACY PRACTICES 2023-08-04 02:16:09 Doctor Unassigned, [employer] [facility] CONSENT/REFUSAL FOR DIAGNOSIS AND TREATMENT 2023-08-04 02:15:41 Doctor Unassigned, [employer] [facility] LIPASE 2023-07-25 16:37:00 Trevor Taylor [facility] MAGNESIUM 2023-07-25 16:37:00 Trevor Taylor [facility] TROPONIN I 2023-07-25 16:37:00 Trevor Taylor [facility] COMP. METABOLIC PANEL ([id number]) 2023-07-25 16:37:00 Trevor Taylor [facility] CBC WITH DIFF 2023-07-25 16:37:00 Trevor Taylor [facility] URINALYSIS 2023-07-25 16:37:00 Trevor Taylor Tiffanie [facility] CONSENT/REFUSAL FOR DIAGNOSIS AND TREATMENT 2023-07-25 15:41:41 Doctor Unassigned, [employer] [facility] US GALL BLADDER 2023-07-24 22:46:02 Johnathan Avila [facility] URINALYSIS 2023-07-24 20:10:00 Johnathan Avila [facility] EXTRA TUBE URINE CULTURE 2023-07-24 20:10:00 Ember Avila [facility] LIPASE 2023-07-24 20:09:00 Johnathan Avila [facility] COMP. METABOLIC PANEL ([id number]) 2023-07-24 20:09:00 Johnathan Avila [facility] LIPID PANEL ([id number])(TOTAL CHOLESTEROL, TRIGLYCERIDES, HDL) 2023-07-24 20:09:00 Johnathan Avila [facility] CBC WITH DIFF 2023-07-24 20:09:00 Johnathan Avila [facility] CONSENT/REFUSAL FOR DIAGNOSIS AND TREATMENT 2023-07-24 18:31:11 Doctor Unassigned, [employer] [facility] XR CHEST 2 VW 2023-07-12 03:54:00 [facility] 2023-07-12 02:31:00 [facility] 2023-07-12 02:14:00 Norm Saleh [facility] COMP. METABOLIC PANEL ([id number]) 2023-07-12 02:14:00 Norm Saleh [facility] CBC WITH DIFF 2023-07-12 02:14:00 Norm Saleh [facility] COVID-19 (ID NOW RAPID TESTING) 2023-07-12 02:14:00 Norm Saleh Marlee [facility] CONSENT/REFUSAL FOR DIAGNOSIS AND TREATMENT 2023-07-12 01:47:09 Doctor Unassigned, [employer] [facility] CONSENT FOR MEDICAL TREATMENT OF A MINOR 2023-07-10 05:01:00 Doctor Unassigned, [employer] [facility] CT ABDOMEN PELVIS W CONTRAST 2023-07-03 10:43:57 AufderHaresh chan Darlin [facility] URINALYSIS 2023-07-03 10:23:00 AufderHaresh chan [facility] LIPASE 2023-07-03 10:11:00 LubnaerHaresh chan [facility] COMP. METABOLIC PANEL ([id number]) 2023-07-03 10:11:00 DeedeefderHaresh chan Darlin [facility] CBC WITH DIFF 2023-07-03 10:11:00 Haresh Santamaria Darlin [facility] CONSENT/REFUSAL FOR DIAGNOSIS AND TREATMENT 2023-07-03 09:36:41 Doctor Unassigned, [employer] [facility] CT ABDOMEN PELVIS W CONTRAST 2023-05-08 02:15:59 Riya Joseph [facility] HB ABO GROUPING 2023-05-08 01:25:00 Elvin Joseph Marie [facility] LIPASE 2023-05-08 01:19:00 Elvin Joseph [facility] COMP. METABOLIC PANEL ([id number]) 2023-05-08 01:19:00 Riya Joseph Connie [facility] CBC WITH DIFF 2023-05-08 01:19:00 Elvin Joseph Marie [facility] COVID-19 (ID NOW RAPID TESTING) 2023-05-08 01:19:00 Riya Joseph Connie [facility] CONSENT/REFUSAL FOR DIAGNOSIS AND TREATMENT 2023-05-07 22:22:14 Doctor Unassigned, [employer] [facility] LIPASE 2023-05-02 03:01:00 Aydin Matos [facility] COMP. METABOLIC PANEL ([id number]) 2023-05-02 03:01:00 Aydin Matos [facility] ETHANOL 2023-05-02 03:01:00 Aydin Matos [facility] CBC WITH DIFF 2023-05-02 03:01:00 Aydin Matos [facility] URINALYSIS 2023-05-02 03:01:00 Aydin Matos [facility] URINE DRUG (IMMUNOASSAY) - COMPREHENSIVE DRUG SCREEN W/O REFLEX 2023-05-02 03:01:00 Aydin Matos [facility] CONSENT/REFUSAL FOR DIAGNOSIS AND TREATMENT 2023-05-02 02:28:20 Doctor Unassigned, [employer] [facility] BASIC METABOLIC PANEL (NA, K, CL, CO2, GLUCOSE, BUN, CREATININE, CA) 2023-04-22 16:47:00 Natali Alexander [facility] LIPASE 2023-04-22 12:58:00 Natali Alexander [facility] BASIC METABOLIC PANEL (NA, K, CL, CO2, GLUCOSE, BUN, CREATININE, CA) 2023-04-22 12:58:00 Benjamin [facility] URINALYSIS 2023-04-22 11:44:00 Abraham Orantes [facility] CREATINE KINASE 2023-04-22 09:06:00 Benjamin [facility] LIPASE 2023-04-22 09:06:00 Natali Alexander [facility] COMP. METABOLIC PANEL ([id number]) 2023-04-22 09:06:00 Abraham Orantes [facility] CBC WITH DIFF 2023-04-22 09:06:00 Abraham Orantes [facility] CONSENT/REFUSAL FOR DIAGNOSIS AND TREATMENT 2023-04-22 08:52:58 Doctor Unassigned, [employer] [facility] LIPASE 2023-04-16 12:30:00 Adelaide Goodwin [facility] TROPONIN I 2023-04-16 12:30:00 Christa Adelaide [facility] COMP. METABOLIC PANEL ([id number]) 2023-04-16 12:30:00 Adelaide Goodwin [facility] CBC WITH DIFF 2023-04-16 12:30:00 Adelaide Goodwin [facility] CONSENT/REFUSAL FOR DIAGNOSIS AND TREATMENT 2023-04-16 11:48:23 Doctor Unassigned, [employer] [facility] LIPASE 2023-04-01 05:08:00 [facility] TROPONIN I 2023-04-01 05:08:00 Hemalatha Mor[facility] COMP. METABOLIC PANEL ([id number]) 2023-04-01 05:08:00 Hemalatha Mora [facility] CBC WITH DIFF 2023-04-01 05:08:00 Hemalatha Mora [facility] URINALYSIS 2023-04-01 05:08:00 Hemalatha Mor[facility] CONSENT/REFUSAL FOR DIAGNOSIS AND TREATMENT 2023-04-01 04:51:45 Doctor Unassigned, [employer] [facility] ASSIGNMENT OF BENEFITS 2023-02-13 21:19:49 Docto r Unassigned, [employer] [facility] POCT GLUCOSE (AUTOMATED) 2023-02-13 21:00:00 Alan Gonzales [facility] CONSENT/REFUSAL FOR DIAGNOSIS AND TREATMENT 2023-02-13 20:50:30 Doctor Unassigned, [employer] [facility] REFERRAL- REQUEST/RESPONSE 2023-01-05 05:01:00 Doctor Unassigned, [employer] [facility] LIPASE 2022-12-09 05:03:00 Soham Clarke [facility] COMP. METABOLIC PANEL ([id number]) 2022-12-09 05:03:00 Soham Clarke [facility] CBC WITH DIFF 2022-12-09 05:03:00 [facility]22-12-09 05:03:00 Soham Clarke [facility] NOTICE OF PRIVACY PRACTICES 2022-12-09 04:46:36 Doctor Unassigned, [employer] [facility] CONSENT/REFUSAL FOR DIAGNOSIS AND TREATMENT 2022-12-09 04:46:16 Doctor Unassigned, [employer] [facility] CT ABDOMEN PELVIS W CONTRAST 2022-11-25 05:38:20 Lion Nascimento [facility] LIPASE 2022-11-25 05:06:00 Lion Nascimento [facility] HEPATIC FUNCTION PANEL ([id number]) (ALB,T.PRO,BILI T,BU/BC,ALT,AST,ALK PHOS) 2022-11-25 05:06:00 Lion Nascimento [facility] BASIC METABOLIC PANEL (NA, K, CL, CO2, GLUCOSE, BUN, CREATININE, CA) 2022-11-25 05:06:00 [facility] CBC WITH DIFF 2022-11-25 05:06:00 Lion Nascimento [facility] URINALYSIS 2022-11-25 05:06:00 [facility] CONSENT/REFUSAL FOR DIAGNOSIS AND TREATMENT 2022-11-25 04:35:51 Doctor Unassigned, [employer] [facility] EXTERNAL PROVIDER RECORDS 2022-10-23 06:01:00 Do ctor Unassigned, [employer] [facility] CBC WITH DIFF 2022-10-12 21:26:00 Lb Bates [facility] PROSTATIC SPECIFIC ANTIGEN 2022-10-12 10:48:00 Jonh Roman [facility] HEPATIC FUNCTION PANEL ([id number]) (ALB,T.PRO,BILI T,BU/BC,ALT,AST,ALK PHOS) 2022-10-12 10:48:00 Lb Bates [facility] BASIC METABOLIC PANEL (NA, K, CL, CO2, GLUCOSE, BUN, CREATININE, CA) 2022-10-12 10:48:00 Lb Bates [facility] CBC WITH DIFF 2022-10-12 10:48:00 Lb Bates [facility] HEPATIC FUNCTION PANEL ([id number]) (ALB,T.PRO,BILI T,BU/BC,ALT,AST,ALK PHOS) 2022-10-11 23:53:00 Lb Bates [facility] BASIC METABOLIC PANEL (NA, K, CL, CO2, GLUCOSE, BUN, CREATININE, CA) 2022-10-11 23:53:00 Lb Bates [facility] US GALL BLADDER 2022-10-11 22:28:58 Jana [facility] ABORH CONFIRMATION (LAB ONLY) 2022-10-11 [facility]:24[facility]-11 21:23:00 Lb Bates [facility] HB ABO GROUPING 2022-10-11 20:41:00 Jana [facility] CBC WITH DIFF 2022-10-11 20:35:00 [facility]PELVIS 2022-10-11 14:52:00 Aydin Matos [facility] HB ECG ROUTINE & RHYTHM STRIP 2022-10-11 13:48:04 Aydin Matos [facility] LIPASE 2022-10-11 13:42:00 Aydin Matos [facility] TROPONIN I 2022-10-11 13:42:00 Aydin Matos [facility] COMP. METABOLIC PANEL ([id number]) 2022-10-11 13:42:00 Aydin Matos [facility] LIPID PANEL (20202)(TOTAL CHOLESTEROL, TRIGLYCERIDES, HDL) 2022-10-11 13:42:00 Jana Lb [facility] CBC WITH DIFF 2022-10-11 13:42:00 Aydin Matos [facility] PROTHROMBIN TIME / INR 2022-10-11 13:42:00 Mahnaz Matos [facility] ACTIVATED PARTIAL THRMPLAS TAE 2022-10-11 13:42:00 Aydin Matos [facility] N-TERMINAL PRO-BNP 2022-10-11 13:42:00 Aydni Matos [facility] URINE DRUG (IMMUNOASSAY) - COMPREHENSIVE DRUG SCREEN W/O REFLEX 2022-10-11 13:42:00 [facility]US[facility] FOR [facility]AGNOSIS AND TREATMENT 2022-10-11 12:24:48 Doctor Unassigned, [employer] [facility] CT ABDOMEN PELVIS W CONTRAST 2022-10-09 06:30:25 Abraham Orantes [facility] LIPASE 2022-10-09 05:24:00 Abraham Orantes [facility] COMP. METABOLIC PANEL ([id number]) 2022-10-09 05:24:00 Abraham Orantes [facility] CBC WITH DIFF 2022-10-09 05:24:00 Abraham Orantes [facility] URINALYSIS 2022-10-09 05:24:00 [facility]to [facility] CONSENT/REFUSAL FOR DIAGNOSIS AND TREATMENT 2022-10-09 03:56:57 Doctor Unassigned, [employer] [facility] COMP. METABOLIC PANEL ([id number]) 2022-08-20 15:11:00 Trevor Taylor Tiffanie [facility] CBC WITH DIFF 2022-08-20 15:11:00 Trevor Talyor [facility] URINALYSIS 2022-08-20 15:11:00 Trevor Taylor [facility] CONSENT/REFUSAL FOR DIAGNOSIS AND TREATMENT 2022-08-20 14:32:58 Doctor Unassigned, [employer] [facility] CT ABDOMEN PELVIS W CONTRAST 2022-06-09 13:12:35 Soham Clarke [facility] LIPASE 2022-06-09 12:48:00 Soham Clarke [facility] COMP. METABOLIC PANEL ([id number]) 2022-06-09 12:48:00 Soham Clarke [facility] CBC WITH DIFF 2022-06-09 12:48:00 [facility] 2022-06-09 12:48:00 Soham Clarke [facility] NOTICE OF PRIVACY PRACTICES 2022-06-09 11:47:39 Doctor Unassigned, [employer] [facility] CONSENT/REFUSAL FOR DIAGNOSIS AND TREATMENT 2022-06-09 11:47:18 Doctor Unassigned, [employer] [facility] PHOSPHORUS 2021-11-01 09:55:00 Darshan [facility] MAGNESIUM 2021-11-01 09:55:00 Darshan [facility] BASIC METABOLIC PANEL (NA, K, CL, CO2, GLUCOSE, BUN, CREATININE, CA) 2021-11-01 09:55:00 Darshan [facility] CBC WITH DIFF 2021-11-01 09:55:00 [facility] 2021-10-31 08:45:00 Leela [facility] CREATINE KINASE 2021-10-31 08:45:00 Roxanne Swenson [facility] MAGNESIUM 2021-10-31 08:45:00 Emelia Gallego [facility] TROPONIN I 2021-10-31 08:45:00 Leela greg [facility] COMP. METABOLIC PANEL ([id number]) 2021-10-31 08:45:00 Roxanne Swenson [facility] CBC WITH DIFF 2021-10-31 08:45:00 Emelia Gallego [facility] PROTHROMBIN TIME / INR 2021-10-31 08:45:00 Leela greg [facility] N-TERMINAL PRO-BNP 2021-10-31 08:45:00 Roxanne Swenson [facility] LACTIC ACID WHOLE BLOOD 2021-10-31 08:45:00 Erwin Swenson [facility] FECES CULTURE 2021-10-30 22:27:00 Monica Hernandez [facility] OCCULT (GUAIAC) BLOOD 2021-10-30 22:27:00 Juany Hernandez [facility] CLOSTRIDIUM DIFFICILE TOXIN 2021-10-30 22:27:00 Monica Hernandez [facility] COVID-19 (ID NOW RAPID TESTING) 2021-10-30 21:24:00 Madison Sepulveda [facility] LAB ONLY COVID INTERPRETATION 2021-10-30 21:24:00 Madison Sepulveda [facility] CT ABDOMEN PELVIS W CONTRAST 2021-10-30 20:44:09 Madison Sepulveda [facility] LIPASE 2021-10-30 20:25:00 Madison Sepulveda U [facility] TROPONIN I 2021-10-30 20:25:00 Roxanne Swenson [facility] COMP. METABOLIC PANEL ([id number]) 2021-10-30 20:25:00 Madison Sepulveda [facility] CBC WITH DIFF 2021-10-30 20:25:00 Madison Sepulveda [facility] URINALYSIS 2021-10-30 20:25:00 Madison Sepulveda U [facility] N-TERMINAL PRO-BNP 2021-10-30 20:25:00 Leela greg [facility] CONSENT/REFUSAL FOR DIAGNOSIS AND TREATMENT 2021-10-30 19:24:05 Doctor Unassigned, [employer] [facility] CREATINE KINASE 2021-05-24 04:40:00 Felipe Ortega [facility] BASIC METABOLIC PANEL (NA, K, CL, CO2, GLUCOSE, BUN, CREATININE, CA) 2021-05-24 04:40:00 Felipe Ortega [facility] URINALYSIS 2021-05-24 02:14:00 Felipe Ortega [facility] CREATINE KINASE 2021-05-24 01:53:00 Felipe Ortega U [facility] TROPONIN I 2021-05-24 01:53:00 Felipe Ortega [facility] COMP. METABOLIC PANEL ([id number]) 2021-05-24 01:53:00 Felipe Ortega [facility] CBC WITH DIFF 2021-05-24 01:53:00 Felipe Ortega [facility] N-TERMINAL PRO-BNP 2021-05-24 01:53:00 Felipe Ortega [facility] ASSIGNMENT OF BENEFITS 2021-05-23 00:46:04 Docto r Unassigned, [employer] [facility] CONSENT/REFUSAL FOR DIAGNOSIS AND TREATMENT 2021-05-22 23:31:57 Doctor Unassigned, [employer] [facility] SARS-COV-2 COVID-19 VACCINE,0.3ML,IM (PFIZER) 2021-05-07 16:12:40 Doctor Unassigned, [employer] [facility] RAPID STREP SCREEN FOR GROUP A 2021-05-02 00:07:00 Aydin Matos [facility] COVID-19 (ID NOW RAPID TESTING) 2021-05-02 00:07:00 [facility]US[facility] FOR DIAGNOSIS AND TREATMENT 2021-05-01 23:56:07 Doctor Unassigned, [employer] [facility] RAPID STREP SCREEN FOR GROUP A 2021-04-02 01:05:00 Nikhil Blanton [facility] COVID-19 (ID NOW RAPID TESTING) 2021-04-02 01:05:00 Nikhil Blanton [facility] NOTICE OF PRIVACY PRACTICES 2021-04-02 00:56:18 Doctor Unassigned, [employer] [facility] CONSENT/REFUSAL FOR DIAGNOSIS AND TREATMENT 2021-04-02 00:49:05 Doctor Unassigned, [employer] [facility] XR WRIST 3+ VW LEFT 2021-03-18 01:19:59 Destini Blanton [facility] URINALYSIS 2021-03-18 01:12:00 Nikhil Blanton [facility] CONSENT/REFUSAL FOR DIAGNOSIS AND TREATMENT 2021-03-18 00:56:01 Doctor Unassigned, [employer] [facility] XR CHEST 1 VW 2020-11-15 03:48:28 Darnell Hsu [facility] CONSENT/REFUSAL FOR DIAGNOSIS AND TREATMENT 2020-11-15 03:11:27 Doctor Unassigned, [employer] [facility] CT HEAD WO CONTRAST 2020-09-30 15:00:43 Jessica Siddiqui ra [facility] XR CHEST 1 VW 2020-09-30 14:37:13 [facility] 2020-09-30 14:25:00 Jessy Siddiqui Un [facility] TROPONIN I 2020-09-30 14:25:00 Jessy Siddiqui [facility] COMP. METABOLIC PANEL ([id number]) 2020-09-30 14:25:00 Jessy Siddiqui [facility] CBC WITH DIFF 2020-09-30 14:25:00 Jessy Siddiqui U [facility] N-TERMINAL PRO-BNP 2020-09-30 14:25:00 Solitario Siddiqui [facility] NOTICE OF PRIVACY PRACTICES 2020-09-30 13:57:13 Doctor Unassigned, [employer] [facility] CONSENT/REFUSAL FOR DIAGNOSIS AND TREATMENT 2020-09-30 13:55:57 Doctor Unassigned, [employer] [facility] EKG-12 LEAD 2020-07-02 03:20:42 Shannon Felipe [facility] LIPASE 2020-07-02 03:05:00 Abraham Orantes [facility] TROPONIN I 2020-07-02 03:05:00 Shannon Felipe [facility] COMP. METABOLIC PANEL ([id number]) 2020-07-02 03:05:00 Abraham Orantes [facility] CBC WITH DIFF 2020-07-02 03:05:00 Abraham Orantes [facility] NOTICE OF PRIVACY PRACTICES 2020-07-02 02:48:43 Doctor Unassigned, [employer] [facility] CONSENT/REFUSAL FOR DIAGNOSIS AND TREATMENT 2020-07-02 02:46:14 Doctor Unassigned, [employer] [facility] Plan of Care Planned Activity Planned Date Details Comments Source Goal Plan of Care Note [code = 82539-3] Goal Plan of Care Note [code = 59102-0] Goal Plan of Care Note [code = 70601-9] Goal Plan of Care Note [code = 59886-5] Goal Plan of Care Note [code = 66179-6] Goal Plan of Care Note [code = 85260-4] Goal Plan of Care Note [code = 20569-9] Goal Plan of Care Note [code = 82572-9] Goal Plan of Care Note [code = 82068-6] Goal Plan of Care Note [code = 64707-5] Goal Plan of Care Note [code = 32693-0] Goal Plan of Care Note [code = 18373-3] Goal Plan of Care Note [code = 86383-2] Goal Plan of Care Note [code = 22510-1] Goal Plan of Care Note [code = 64129-2] Encounters Start Date/Time End Date/Time Encounter Type Admission Type Attending [facility] Facility Care Department Encounter ID Source 2022-07-29 14:17:02 Outpatient Mayuri James [facility] [id number] [facility] 2022-07-11 08:20:03 Outpatient Mayuri James [facility] [id number] [facility] 2024-05-30 09:45:00 2024-05-30 09:45:00 [id number] 09:30:00 2024-05-27 09:30:00 Outpatient ADRI TAYLOR [id number] [facility] 2024-05-26 08:30:00 2024-05-26 08:30:00 Outpatient HARSHIL STYLES [id number] [facility] 2024-05-25 00:00:00 2024-05-25 00:00:00 Outpatient HAYDEN ORTIZ [id number] Lu[facility] 2024-05-24 15:00:00 2024-05-24 15:00:00 Outpatient HAYDEN ORTIZ [id number] Lu[facility] Maria [facility] 2024-05-23 00:00:00 2024-05-23 00:00:00 Outpatient MD LUZ MARIA AN [id number] Luz Maria [facility] 2024-05-18 11:10:00 2024-05-18 11:10:00 Outpatient FOUZIA GUNDERSON [id number] Luz Maria [facility] 2024-05-12 00:00:00 2024-05-12 00:00:00 Outpatient LUZ MARIA HOLLIDAY [id number] Luz Maria [facility] 2024-05-09 00:00:00 2024-05-09 00:00:00 Outpatient HAYDEN ORTIZ LUZ MARIA HOLLIDAY [id number] [facility] 2024-05-05 00:00:00 2024-05-05 00:00:00 Outpatient GIBRAN MCADAMS LUZ MARIA HOLLIDAY [id number] [facility] 2024-05-04 08:30:00 2024-05-04 08:30:00 Outpatient LUZ MARIA HOLLIDAY [id number] [facility] 2024-04-29 00:00:00 2024-04-29 00:00:00 Outpatient HAYDEN ORTIZ LUZ MARIA HOLLIDAY [id number] [facility] 2024-04-22 08:00:00 2024-04-22 08:00:00 Outpatient LUZ MARIA HOLLIDAY [id number] [facility] 2024-04-12 09:40:00 2024-04-12 09:40:00 Outpatient BROOK ALLEN [id number] [facility] 2024-04-11 08:00:00 2024-04-11 08:00:00 Outpatient LUZ MARIA HOLLIDAY [id number] [facility] 2024-04-11 00:00:00 2024-04-11 00:00:00 Outpatient GIBRAN MCADAMS LUZ MARIA HOLLIDAY [id number] Lu[facility] 2024-04-08 16:30:00 2024-04-08 16:30:00 Outpatient LEANDRO MANN [id number] [facility] 2024-04-04 08:10:00 2024-04-04 08:10:00 Outpatient LAB90 LUZ MARIA HOLLIDAY [id number] [facility] 2024-04-02 08:39:00 2024-04-02 12:55:00 Emergency X Tervor TAYLOR K [facility] [[email or web address]] ERT [id number] [facility] 2024-04-02 08:39:00 2024-04-02 12:55:00 Emergency Trevor Taylor [facility] 1.2.840.114 350.1.13.10 4.2.7.2.686 [id number] [facility] 2024-04-02 00:00:00 2024-04-02 00:00:00 Outpatient GERALD VIDAL LUZ MARIA HOLLIDAY [id number] Luz Maria [facility] 2024-03-30 09:00:00 2024-03-30 09:00:00 Outpatient HELLEN LUZ MARIA HOLLIDAY [id number] Luz Maria [facility] 2024-03-30 08:30:00 2024-03-30 08:30:00 Outpatient GIBRAN MCADAMS [id number] Luz Maria Ng 2024-03-30 00:00:00 2024-03-30 00:00:00 Outpatient GIBRAN MCADAMS [id number] Luz Maria [facility] 2024-03-30 00:00:00 2024-03-30 00:00:00 Outpatient PREANNIA, HAYDEN HOLLIDAY [id number] [facility] 2024-03-28 00:00:00 2024-03-28 00:00:00 Outpatient PREZABirgit, HAYDEN HOLLIDAY [id number] Luz Maria [facility] 2024-03-23 00:00:00 2024-03-23 00:00:00 Outpatient PREZABirgit, HAYDEN HOLLIDAY [id number] [facility] 2024-02-29 00:00:00 2024-02-29 13:30:22 Letter (Out) Karl Ferguson [email or web address] 1.2.840.114 350.1.13.10 4.2.7.2.686 [id number] [facility] 2024-02-24 00:00:00 2024-02-24 00:00:00 Outpatient MELINA GOLDBERG [id number] Luz Maria [facility] 2024-02-24 00:00:00 2024-02-24 00:00:00 Outpatient PREZAHAYDEN Genao [id number] [facility] 2024-02-22 00:00:00 2024-02-22 14:50:01 Letter (Out) Elida Lewis [facility] [[email or web address]] [facility] 1.2.840.114 350.1.13.10 4.2.7.2.686 [id number] [facility] 2024-02-22 00:00:00 2024-02-22 00:00:00 Outpatient HAYDEN ORTIZ [id number] Luz Maria marcell 2024-02-20 21:47:00 2024-02-20 23:54:00 Emergency X LETI RIVAS ERICCA [facility] [[email or web address]] ERT [id number] [facility] 2024-02-20 21:47:00 2024-02-20 23:54:00 Emergency Leti Rivas [facility] 1.2.840.114 350.1.13.10 4.2.7.2.686 [id number] [facility] 2024-01-26 00:00:00 2024-01-26 00:00:00 Outpatient HAYDEN ORTIZ [id number] Luz Maria [facility] 2024-01-15 00:00:00 2024-01-15 00:00:00 Outpatient HAYDEN ORTIZ [id number] Lu[facility] 2023-12-28 00:00:00 2023-12-28 00:00:00 Outpatient HAYDEN ORTIZ [id number] Luz Maria [facility] 2023-12-18 00:00:00 2023-12-18 00:00:00 Outpatient LUZ MARIA HOLLIDAY [id number] Luz Maria marcell 2023-12-17 15:30:00 2023-12-17 15:30:00 Outpatient HAYDEN ORTIZ [id number] [facility] 2023-12-11 00:00:00 2023-12-11 00:00:00 Outpatient HAYDEN ORTIZ [id number] Luz Maria Ng 2023-12-09 20:14:00 2023-12-09 23:50:00 Emergency X ABRAHAM ORANTES [facility] [[email or web address]] ERT [id number] [facility] 2023-12-09 20:14:00 2023-12-09 23:50:00 Emergency Abraham Orantes S [facility] 1.2.840.114 350.1.13.10 4.2.7.2.686 [id number] [facility] 2023-11-24 00:00:00 2023-11-24 00:00:00 Outpatient HAYDEN ORTIZ [id number] Luz Maria [facility] 2023-11-18 00:00:00 2023-11-18 00:00:00 Letter (Out) Chavez Turner [facility] [[email or web address] [employer] 1.2.840.114 350.1.13.10 4.2.7.2.686 [id number] [facility] 2023-11-10 14:00:00 2023-11-10 14:00:00 Outpatient HAYDEN ORTIZ [id number] Luz Maria [facility] 2023-11-09 00:00:00 2023-11-09 00:00:00 Outpatient HAYDEN ORTIZ [id number] Luz Maria [facility] 2023-11-06 00:00:00 2023-11-06 00:00:00 Outpatient HAYDEN ORTIZ [id number] Luz Maria [facility] 2023 11:30:00 2023 11:30:00 Outpatient CALLIE THORNE JULIANA [facility] [id number] [facility] 2023-10-16 00:00:00 2023-10-16 00:00:00 Outpatient HAYDEN ORTIZ [id number] Luz Maria [facility] 2023-10-13 00:00:00 2023-10-13 00:00:00 Outpatient LUZ MARIA HOLLIDAY [id number] Luz Maria [facility] 2023-10-06 14:30:00 2023-10-06 14:30:00 Outpatient HAYDEN ORTIZ LUZ MARIA HOLLIDAY [id number] [facility] 2023-08-14 00:00:00 2023-08-14 00:00:00 Outpatient Edith MERLYN HIDALGO [facility] [id number] [facility] 2023-08-13 00:00:00 2023-08-13 00:00:00 Patient Secure Msg Doctor Unassigned, [employer] [facility] 1.2.840.114 350.1.13.10 4.2.7.2.686 [id number] [facility] 2023-08-11 16:15:00 2023-08-11 16:15:00 Outpatient COLLEENLUIZAADAN Topete LUZ MARIA HOLLIDAY [id number] [facility] 2023-08-03 20:26:00 2023-08-04 00:05:00 Emergency X ABRAHAM ORANTES [facility] [[email or web address]] ERT [id number] [facility] 2023-08-03 20:26:00 2023-08-04 00:05:00 Emergency Aman Orantesclemente Genao [facility] 1..840.114 350.1.13.10 4.2.7.2.686 [id number] [facility] 2023-08-03 00:00:00 2023-08-03 00:00:00 Outpatient KIARA RICHARDSON [id number] [facility] 2023-08-03 00:00:00 2023-08-03 00:00:00 Orders Only Doctor Unassigned, [employer] [facility] 1..840.114 350.1.13.10 4.2.7.2.686 [id number] [facility] 2023-07-25 09:58:00 2023-07-25 12:56:00 Emergency X Trevor TAYLOR [facility] [[email or web address]] ERT [id number] [facility] 2023-07-25 09:58:00 2023-07-25 12:56:00 Emergency Trevor Taylor [facility] 1.114 350.1.13.10 4.2.7.2.686 [id number] [facility] 2023-07-24 12:36:00 2023-07-24 17:49:00 Emergency X JOHNATHAN AVILA [facility] [[email or web address]] ERT [id number] [facility] 2023-07-24 12:36:00 2023-07-24 17:49:00 Emergency Johnathan Avila Olegario [facility] 1.114 350.1.13.10 4.2.7.2.686 [id number] [facility] 2023-07-24 14:30:00 2023-07-24 14:30:00 Outpatient ADAN CHESTER [id number] Luz Maria Ng 2023-07-24 00:00:00 2023-07-24 00:00:00 Telephone Emerald [place] [facility] 1..114 350.113.10 4.2.7.2.686 [id number] [id number] [facility] 2023-07-23 05:22:00 2023-07-23 10:02:00 Emergency Jessie Lion [facility] [id number] [address] [place] [address] 2023-07-22 00:00:00 2023-07-22 00:00:[address] [facility] 1..114 350.1.13.10 4.2.7.2.686 [id number] [facility] 2023-07-22 00:00:00 2023-07-22 00:00:00 Patient Secure Msg Doctor Unassigned, [employer] [facility] [[email or web address] 1.2.840.114 350.1.13.10 4.2.7.2.686 [id number] [facility] 2023-07-20 00:00:00 2023-07-20 00:00:00 Telephone Merlyn Hidalgo [facility] [[email or web address]] [facility] 1.2.840.114 350.1.13.10 4.2.7.2.686 [id number] [facility] 2023-07-17 13:45:00 2023-07-17 13:45:00 Outpatient JIMMY BRENNAN [id number] Luz Maria Ng 2023-07-11 20:53:00 2023-07-11 23:38:00 Emergency X STEPHIE HEWITT [facility] [[email or web address]] ERT [id number] [facility] 2023-07-11 20:53:00 2023-07-11 23:38:00 Emergency Stephie Hewitt [facility] 1.84.114 350.1.13.10 4.2.7.2.686 [id number] [facility] 2023-07-10 08:45:00 2023-07-10 12:03:37 Outpatient R MERLYN HIDALGO [facility] [id number] [facility] 2023-07-10 08:45:00 2023-07-10 12:03:37 Office Visit Merlyn Hidalgo [facility] [[email or web address]] [facility] 1.2840.114 350.1.13.10 4.2.7.2.686 [id number] [facility] 2023-07-10 00:00:00 2023-07-10 00:00:00 Orders Only Doctor Unassigned, [employer] [facility] 1.2840.114 350.1.13.10 4.2.7.2.686 [id number] [facility] 2023-07-08 09:15:00 2023-07-08 09:15:00 Outpatient KIARA RICHARDSON [id number] Luz Maria [facility] 2023-07-03 04:49:00 2023-07-03 09:47:00 Emergency X MIRIAM LUDWIG DIETRICH [facility] [[email or web address]] ERT [id number] [facility] 2023-07-03 04:49:00 2023-07-03 09:47:00 Emergency Haresh Santamaria [place] [facility] [place] 1..840.114 350.1.13.10 4.2.7.2.686 [id number] [facility] 2023-07-01 22:56:00 2023-07-02 01:00:00 Emergency EM Jessie Gleason [facility] ER [id number] [facility] 2023-05-20 15:50:00 2023-05-20 15:50:00 Outpatient LAB56 LUZ MARIA HOLLIDAY [id number] Luz Maria [facility] 2023-05-20 15:15:00 2023-05-20 15:15:00 Outpatient KIARA RICHARDSON [id number] Luz Maria [facility] 2023-05-07 17:37:00 2023-05-07 23:23:00 Emergency X MANFRED KAN [facility] [[email or web address]] ERT [id number] [facility] 2023-05-07 17:37:00 2023-05-07 23:23:00 Emergency Kelsi [facility]ley [facility] 1.840.114 350.1.13.10 4.2.7.2.686 [id number] [facility] 2023-05-01 21:39:00 2023-05-02 00:35:00 Emergency X AYDIN MATOS [facility] [[email or web address]] ERT [id number] [facility] 2023-05-01 21:39:00 2023-05-02 00:35:00 Emergency Aydin Matos [facility] ..840.114 350.1.13.10 4.2.7.2.686 [id number] [facility] 2023-04-22 03:51:00 2023-04-22 13:11:00 Emergency X BENJAMIN [facility] ERT [id number] [facility] 2023-04-22 03:51:00 2023-04-22 13:11:00 Emergency Abraham Orantes Jaymi[facility] 1.2.840.114 350.1.13.10 4.2.7.2.686 [id number] [facility] 2023-04-16 07:09:00 2023-04-16 09:00:00 Emergency X CHRISTA, ADELAIDE [facility] [[email or web address]] ERT [id number] [facility] 2023-04-16 07:09:00 2023-04-16 09:00:00 Emergency Adelaide Goodwin [facility] 1..840.114 350.1.13.10 4.2.7.2.686 [id number] [facility] 2023-03-31 23:59:00 2023-04-01 03:24:00 Emergency X HEMALATHA MORA [facility] [[email or web address]] ERT [id number] [facility] 2023-03-31 23:59:00 2023-04-01 03:24:00 [facility] 1.2.840.114 350.1.13.10 4.2.7.2.686 [id number] [facility] 2023-02-13 16:02:00 2023-02-13 17:25:00 Emergency X JESSICA GONZALES [facility] [[email or web address]] ERT [id number] [facility] 2023-02-13 16:02:00 2023-02-13 17:25:00 Emergency Jessica Gonzales [facility] 1..840.114 350.1.13.10 4.2.7.2.686 [id number] [id number] [facility] 2023-01-05 00:00:00 2023-01-05 00:00:00 Orders Only Doctor Unassigned, [employer] [facility] 1.2840.114 350.1.13.10 4.2.7.2.686 [id number] [facility] 2022-12-29 17:25:40 2022-12-29 17:25:40 Outpatient [facility] [id number] Dewey Ponce 2022-12-09 00:01:00 2022-12-09 01:39:00 Emergency X SOHAM CLARKE [facility] [[email or web address]] ERT [id number] [facility] 2022-12-09 00:01:00 2022-12-09 01:39:00 Emergency Soham Clarke [facility] 1.840.114 350.1.13.10 4.2.7.2.686 [id number] [facility] 2022-11-24 23:44:00 2022-11-25 02:56:00 Emergency X MATOSMAHNAZAYDIN [facility] [[email or web address]] ERT [id number] [facility] 2022-11-24 23:44:00 2022-11-25 02:56:00 Emergency Azam, Jessibrian [facility] 1.0.114 350.1.13.10 4.2.7.2.686 [id number] [id number] [facility] 2022-10-25 00:00:00 2022-10-25 00:00:00 Patient Secure Msg Doctor Unassigned, [employer] [facility] 1..114 350.1.13.10 4.2.7.2.686 [id number] [facility] 2022-10-23 00:00:00 2022-10-23 00:00:00 Orders Only Doctor Unassigned, [employer] [facility] 1.20.114 350.1.13.10 4.2.7.2.686 [id number] [facility] 2022-10-11 06:41:00 2022-10-12 17:56:00 Outpatient X DAVID MARK [email or web address]] MARTI [id number] [facility] 2022-10-11 06:41:00 2022-10-12 17:56:00 Emergency Aydin Matos Norman M [facility] 1.2.840.114 350.1.13.10 4.2.7.2.686 [id number] [facility] 2022-10-08 22:15:00 2022-10-09 01:39:00 Emergency X YOHANAKADENRUDY BAKERMAGDIEL [facility] [[email or web address]] ERT [id number] [facility] 2022-10-08 22:15:00 2022-10-09 01:39:00 Emergency Yohanakadenmerlyn Rudymagdiel Genao [facility] 1.2.840.114 350.1.13.10 4.2.7.2.686 [id number] [facility] 2022-10-08 00:00:00 2022-10-08 00:00:00 Orders Only Doctor Unassigned, [employer] [facility] 1.2.840.114 350.1.13.10 4.2.7.2.686 [id number] [facility] 2022-08-20 08:42:00 2022-08-20 12:19:00 Emergency X Trevor TAYLOR [facility] [[email or web address]] ERT [id number] [facility] 2022-08-20 08:42:00 2022-08-20 12:19:00 Emergency Trevor Taylor [facility] 1.2.840.114 350.1.13.10 4.2.7.2.686 [id number] [facility] 2022-07-11 00:00:00 2022-07-11 00:00:00 OFFICE VISIT NEW PT LEVEL 3 STLMLC STLMLC [id number] [facility] 2022-07-09 10:07:22 2022-07-09 10:07:22 Outpatient [facility] [id number] 1026 Dewey Ponce 2022-07-09 00:00:00 2022-07-09 00:00:00 Outpatient Visit [id number] 2022-06-09 06:57:00 2022-06-09 10:27:00 Emergency X SOHAM CLARKE [facility] [id number] [facility] 2022-06-09 06:57:00 2022-06-09 10:27:00 Emergency Soham Clarke [facility] 1..840.114 350.1.13.10 4.2.7.2.686 [id number] [facility] 2022-06-09 00:00:00 2022-06-09 00:00:00 Orders Only Doctor Unassigned, [employer] [facility] 1.840.114 350.1.13.10 4.2.7.2.686 [id number] [id number] [facility] 2021-11-04 00:00:00 2021-11-04 00:00:00 Transition of Care Ellen Carroll 1..840.114 350.1.13.10 4.2.7.2.686 [id number] [facility] 2021-10-30 13:39:00 2021-11-01 13:45:00 Inpatient X EMELIA GALLEGO [facility] [id number] [facility] 2021-10-30 13:39:00 2021-11-01 13:45:00 Hospital Encounter Madison Sepulveda David [facility] 1.2840.114 350.1.13.10 4.2.7.2.686 [id number] [facility] 2021-10-30 00:00:00 2021-10-30 00:00:00 Orders Only Doctor Unassigned, [employer] [facility] 1.2840.114 350.1.13.10 4.2.7.2.686 [id number] [facility] 2021-05-23 20:42:00 2021-05-24 01:42:00 Emergency Felipe Ortega Gay [facility] 1.0.114 350.1.13.10 4.2.7.2.686 [id number] [facility] 2021-05-23 20:42:00 2021-05-23 20:42:00 Emergency X SHANNONFELIPE [email or web address]] ERT [id number] [facility] 2021-05-22 18:37:00 2021-05-22 21:40:00 Emergency Gabriella Zarate [facility] 1..114 350.1.13.10 4.2.7.2.686 [id number] [id number] [facility] 2021-05-22 18:31:00 2021-05-22 18:31:00 Emergency X [email or web address]] ERT [id number] [facility] 2021-05-07 11:11:35 2021-05-07 11:11:42 Imm/Inj Visit Nurse, Malika Pogay ImmunizDavid Nam [facility] 1..114 350.1.13.10 4.2.7.2.686 [id number] [facility] 2021-05-01 19:09:00 2021-05-01 20:46:00 Emergency Nikhil Blanton [facility] 1.2.840.114 350.1.13.10 4.2.7.2.686 [id number] [facility] 2021-05-01 18:53:00 2021-05-01 18:53:00 Emergency X [email or web address]] ERT [id number] [facility] 2021-04-01 20:06:00 2021-04-01 21:56:00 Emergency [place], [facility] 1.2.840.114 350.1.13.10 4.2.7.2.686 [id number] [id number] 2021-04-01 20:06:00 2021-04-01 21:56:00 Emergency [place], [facility] 1.2.840.114 350.1.13.10 4.2.7.2.686 [id number] [id number] [facility] 2021-04-01 20:06:00 2021-04-01 20:06:00 Emergency X NIKHIL BLANTON [email or web address]] ERT [id number] [facility] 2021-03-17 20:09:00 2021-03-17 22:19:00 Emergency [place], [facility] 1.2.840.114 350.1.13.10 4.2.7.2.686 [id number] [id number] 2021-03-17 20:09:00 2021-03-17 22:19:00 Emergency [place] [facility] 1.2.840.114 350.1.13.10 4.2.7.2.686 [id number] [id number] [facility] 2021-03-17 19:56:00 2021-03-17 19:56:00 Emergency X [email or web address]] ERT [id number] [facility] 2020-11-15 00:00:00 2020-11-15 00:00:00 Telephone Pcp, Patient Does Not Have A [facility] 1.2.840.114 350.1.13.10 4.2.7.2.686 [id number] 2020-11-15 00:00:00 2020-11-15 00:00:00 Letter (Out) [facility] 1.2.840.114 350.1.13.10 4.2.7.2.686 [id number] 2020-11-15 00:00:00 2020-11-15 00:00:00 Letter (Out) [facility] 1.2.840.114 350.1.13.10 4.2.7.2.686 [id number] [facility] 2020-11-15 00:00:00 2020-11-15 00:00:00 Telephone Pcp, Patient Does Not Have A [facility] 1.2.840.114 350.1.13.10 4.2.7.2.686 [id number] [facility] 2020-11-14 21:29:00 2020-11-14 22:55:00 Emergency Darnell Hsu [facility] 1.2.840.114 350.1.13.10 4.2.7.2.686 [id number] 2020-11-14 21:29:00 2020-11-14 22:55:00 Emergency Darnell Hsu [facility] 1.2.840.114 350.1.13.10 4.2.7.2.686 [id number] [facility] 2020-11-14 21:29:00 2020-11-14 22:55:00 Emergency X DARNELL HSU [facility] [[email or web address]] ERT [id number] [facility] 2020-09-30 08:03:00 2020-09-30 10:45:00 Emergency Jessy Siddiqui [facility] 1.2.840.114 350.1.13.10 4.2.7.2.686 [id number] 2020-09-30 08:03:00 2020-09-30 10:45:00 Emergency Artur Jessy Ember [facility] 1.2.840.114 350.1.13.10 4.2.7.2.686 [id number] [facility] 2020-09-30 07:58:00 2020-09-30 07:58:00 Emergency X [facility] [[email or web address]] ERT [id number] [facility] 2020-09-30 00:00:00 2020-09-30 00:00:00 Orders Only Doctor Unassigned, [place] [facility] 1.2.840.114 350.1.13.10 4.2.7.2.686 [id number] 2020-09-30 00:00:00 2020-09-30 00:00:00 Orders Only Doctor Unassigned, [place] [facility] 1.2.840.114 350.1.13.10 4.2.7.2.686 [id number] [id number] [facility] 2020-07-01 21:58:00 2020-07-01 23:54:00 Emergency Felipe Ortega [facility] 1.2.840.114 350.1.13.10 4.2.7.2.686 [id number] [id number] 2020-07-01 21:58:00 2020-07-01 23:54:00 Emergency Shannon, Felipe [facility] 1.2.840.114 350.1.13.10 4.2.7.2.686 [id number] [id number] [facility] 2020-07-01 21:58:00 2020-07-01 21:58:00 Emergency X SHANNON, FELIPE [facility] [[email or web address]] ERT [id number] [facility] Results Test Description Test Time Test Comments Results Result Co mments Source [facility] [id number] 15:06:25CT ABDOMEN PELVIS W CONTRAST HISTORY: 53 [...] hernia is seen. Degenerative changes atL5-S1 level noted.[facility]. Metabolic Panel (37266)2024-04-02 14:58:53* Test Item Value Reference Range Interpretation Comme nts NA (test code = 4904705757) 138 mmol/L 135-145 K (test code = 0743734561) 4.6 mmol/L 3.5-5.0 CL (test code = 1564369284) 105 mmol/L 98-108 CO2 TOTAL (test code = 9793036586) 28 mmol/L 23-31 AGAP (test code = 5646133302) 5 2-16 BUN (test code = 3036466531) 19 mg/dL 7-23 GLUCOSE (test code = 6220151289) 117 mg/dL 70-110 H CREATININE (test code = 2160-0) 0.91 mg/dL 0.60-1.25 TOTAL BILI (test code = 7894635425) 0.8 mg/dL 0.1-1.1 CALCIUM (test code = 5072577428) 9.2 mg/dL 8.6-10.6 T PROTEIN (test code = 9571413166) 8.4 g/dL 6.3-8.2 H ALBUMIN (test code = 9991844183) 4.4 g/dL 3.5-5.0 ALK PHOS (test code = 1514835896) 58 U/L 34-122 ALTv (test code = 1742-6) 28 U/L 5-50 AST(SGOT) (test code = 5750301175) 33 U/L 13-40 eGFR (test code = 40434-1) 102.0 mL/min/1.73m2 CKD-EPI eGFR (2020). Assuming creatinine has been stable day-to-day for at least three months, the eGFR indicates Category G1 (>= 90 mL/min/1.73 m2) Lab Interpretation (test code = 30630-1) Abnormal [facility] (44253)(Total Cholesterol, Triglycerides, HDL)2024-04-02 14:58:53* Test Item Value Reference Range Interpretation Comme nts CHOL (test code = 7014482109) 190 mg/dL 120-200 HDL (test code = 1399389554) 37 mg/dL >=40 L HDLC RATIO (test code = 4585713341) 5.1 <=5.0 H TRIG (test code = 7877681094) 107 mg/dL 30-170 LDL CHOL (test code = 82430-2) 132 mg/dL <=160 VLDL (test code = 9784111656) 21 mg/dL 5-60 Lab Interpretation (test cod e = 54206-4) [facility] 14:58:32* Test Item Value Reference Range Interpretation Comme nts MAGNESIUM (test code = 9897644663) 1.9 mg/dL 1.7-2.4 Lab Interpretation (test cod e = 45920-2) Normal [facility]24[facility] 14:58:12* Test Item Value Reference Range Interpretation Comme nts LIPASE (test code = 1667445606) 384 U/L 0-220 H Lab Interpretation (test cod e = 45468-7) Abnormal [facility] with [id number] 14:40:51* Test Item Value Reference Range Interpretation [...] 35.0 g/dL 31.2-35.0 RDW-SD (test code = 16440-6) 41.7 fL 38.5-51.6 RDW-CV (test code = 788-0) 13.3 % 12.1-15.4 PLT (test code = 777-3) 216 150-328 MPV (test code = 55924-7) 9.9 fL 9.8-13.0 NRBC/100 WBC (test code = 3993870943) 0.0 0.0-10.0 NRBC x10^3 (test code = 9208373738) See_Comment [Automated me ssage] The system which generated this result transmitted reference range: 10*3/?L. The reference range was not used to interpret this result as normal/abnormal. GRAN MAT (NEUT) % (test code = 770-8) 44.1 % IMM GRAN % (test code = 8031897561) 0.40 % LYMPH % (test code = 736-9) 45.4 % MONO % (test code = 5905-5) 8.4 % EOS % (test code = 713-8) 1.1 % BASO % (test code = 706-2) 0.6 % GRAN MAT x10^3(ANC) (test code = 0495721299) 2.31 10*3/uL 1.99-6.95 IMM GRAN x10^3 (test code = 5582944237) 0.00-0.06 LYMPH x10^3 (test code = 731-0) 2.38 10*3/uL 1.09-3.23 MONO x10^3 (test code = 742-7) 0.44 10*3/uL 0.36-1.02 EOS x10^3 (test code = 711-2) 0.06 10*3/uL 0.06-0.53 BASO x10^3 (test code = 704-7) 0.03 10*3/uL 0.01-0.09 [facility]OLIC PANEL (05561)2024-02-21 03:54:20* Test Item Value Reference Range Interpretation Comme nts NA (test code = 8722922976) 137 mmol/L 135-145 K (test code = 5626171596) 3.9 mmol/L 3.5-5.0 CL (test code = 4699685760) 106 mmol/L 98-108 CO2 TOTAL (test code = 1063382069) 26 mmol/L 23-31 AGAP (test code = 9640832471) 5 2-16 BUN (test code = 5340406924) 14 mg/dL 7-23 GLUCOSE (test code = 9433893769) 128 mg/dL 70-110 H CREATININE (test code = 2160-0) 0.98 mg/dL 0.60-1.25 TOTAL BILI (test code = 0091800326) 0.5 mg/dL 0.1-1.1 CALCIUM (test code = 3150338515) 8.6 mg/dL 8.6-10.6 T PROTEIN (test code = 5329830683) 7.4 g/dL 6.3-8.2 ALBUMIN (test code = 8263546772) 4.1 g/dL 3.5-5.0 ALK PHOS (test code = 0966550420) 66 U/L 34-122 ALTv (test code = 1742-6) 25 U/L 5-50 AST(SGOT) (test code = 6806310168) 39 U/L 13-40 eGFR (test code = 57263-5) 93.4 mL/min/1.73m2 CKD-EPI eGFR (2020). Assuming creatinine has been stable day-to-day for at least three months, the eGFR indicates Category G1 (>= 90 mL/min/1.73 m2) Lab Interpretation (test code = 79808-3) [facility]24[facility] 03:53:40* Test Item Value Reference Range Interpretation Comme nts LIPASE (test code = 3579151204) 117 U/L 0-220 Lab Interpretation (test cod e = 40370-7) Normal [facility] WITH [id number] 03:39:58* Test Item Value Reference Range Interpretation [...] 34.8 g/dL 31.2-35.0 RDW-SD (test code = 70507-5) 40.3 fL 38.5-51.6 RDW-CV (test code = 788-0) 12.7 % 12.1-15.4 PLT (test code = 777-3) 216 150-328 MPV (test code = 90205-3) 9.6 fL 9.8-13.0 L NRBC/100 WBC (test code = 7255116691) 0.0 0.0-10.0 NRBC x10^3 (test code = 9177563783) See_Comment [Automated messa ge] The system which generated this result transmitted reference range: 10*3/?L. The reference range was not used to interpret this result as normal/abnormal. GRAN MAT (NEUT) % (test code = 770-8) 32.8 % IMM GRAN % (test code = 0512174833) 0.20 % LYMPH % (test code = 736-9) 58.5 % MONO % (test code = 5905-5) 6.6 % EOS % (test code = 713-8) 1.4 % BASO % (test code = 706-2) 0.5 % GRAN MAT x10^3(ANC) (test code = 5836154393) 1.94 10*3/uL 1.99-6.95 L IMM GRAN x10^3 (test code = 6743119509) 0.00-0.06 LYMPH x10^3 (test code = 731-0) 3.46 10*3/uL 1.09-3.23 H MONO x10^3 (test code = 742-7) 0.39 10*3/uL 0.36-1.02 EOS x10^3 (test code = 711-2) 0.08 10*3/uL 0.06-0.53 BASO x10^3 (test code = 704-7) 0.03 10*3/uL 0.01-0.09 Lab Interpretation (test code = 95425-7) Abnormal [facility] with [id number] 03:17:11* Test Item Value Reference Range Interpretation [...] 34.8 g/dL 31.2-35.0 RDW-SD (test code = 49334-9) 39.9 fL 38.5-51.6 RDW-CV (test code = 788-0) 12.7 % 12.1-15.4 PLT (test code = 777-3) 240 150-328 MPV (test code = 82864-4) 9.8 fL 9.8-13.0 NRBC/100 WBC (test code = 1395227412) 0.0 0.0-10.0 NRBC x10^3 (test code = 8052628380) See_Comment [Automated messa ge] The system which generated this result transmitted reference range: 10*3/?L. The reference range was not used to interpret this result as normal/abnormal. GRAN MAT (NEUT) % (test code = 770-8) 31.3 % IMM GRAN % (test code = 3385001767) 0.00 % LYMPH % (test code = 736-9) 57.3 % MONO % (test code = 5905-5) 9.3 % EOS % (test code = 713-8) 1.6 % BASO % (test code = 706-2) 0.5 % GRAN MAT x10^3(ANC) (test code = 5107604834) 1.94 10*3/uL 1.99-6.95 L IMM GRAN x10^3 (test code = 2435184823) 0.00-0.06 LYMPH x10^3 (test code = 731-0) 3.56 10*3/uL 1.09-3.23 H MONO x10^3 (test code = 742-7) 0.58 10*3/uL 0.36-1.02 EOS x10^3 (test code = 711-2) 0.10 10*3/uL 0.06-0.53 BASO x10^3 (test code = 704-7) 0.03 10*3/uL 0.01-0.09 Lab Interpretation (test code = 11421-0) Abnormal [facility]ville[facility] Metabolic Panel (43225)2023-12-10 03:13:49* Test Item Value Reference Range Interpretation Comme nts NA (test code = 8711036766) 141 mmol/L 135-145 K (test code = 6883540674) 4.3 mmol/L 3.5-5.0 CL (test code = 9759762171) 107 mmol/L 98-108 CO2 TOTAL (test code = 7366969349) 26 mmol/L 23-31 AGAP (test code = 4341094658) 8 2-16 BUN (test code = 6935185294) 20 mg/dL 7-23 GLUCOSE (test code = 8690895311) 123 mg/dL 70-110 H CREATININE (test code = 2160-0) 0.95 mg/dL 0.60-1.25 TOTAL BILI (test code = 8112529166) 0.8 mg/dL 0.1-1.1 CALCIUM (test code = 1656418692) 9.0 mg/dL 8.6-10.6 T PROTEIN (test code = 5106177944) 8.4 g/dL 6.3-8.2 H ALBUMIN (test code = 6151105827) 4.3 g/dL 3.5-5.0 ALK PHOS (test code = 0412860344) 58 U/L 34-122 ALTv (test code = 1742-6) 33 U/L 5-50 AST(SGOT) (test code = 6187678615) 52 U/L 13-40 H eGFR (test code = 31786-5) 96.9 mL/min/1.73m2 CKD-EPI eGFR (2020). Assuming creatinine has been stable day-to-day for at least three months, the eGFR indicates Category G1 (>= 90 mL/min/1.73 m2) Lab Interpretation (test code = 90705-6) [facility]normal [facility]ville[facility] W [id number] 03:12:08CT ABDOMEN PELVIS W CONTRAST HISTORY: 53 [...] TISSUES: No suspicious lytic or sclerotic bony lesions.[facility] BASIC METABOLIC PANEL (NA, K, CL, CO2, GLUCOSE, BUN, CREATININE, CA)2023-08-04 03:27:21* Test Item Value Reference Range Interpretation Comme nts NA (test code = 2952682861) 140 mmol/L 135-145 K (test code = 7130755052) 3.9 mmol/L 3.5-5.0 CL (test code = 3192129137) 104 mmol/L 98-108 CO2 TOTAL (test code = 0874710130) 28 mmol/L 23-31 AGAP (test code = 6998943868) 8 2-16 BUN (test code = 0535548054) 15 mg/dL 7-23 GLUCOSE (test code = 7065097576) 155 mg/dL 70-110 H CREATININE (test code = 6489524632) 1.37 mg/dL 0.60-1.25 H CALCIUM (test code = 0006474789) 9.5 mg/dL 8.6-10.6 eGFR (test code = 84955-1) 62.8 mL/min/1.73m2 CKD-EPI eGFR (2020). Assuming creatinine has been stable day-to-day for at least three months, the eGFR indicates Category G2 (60 - 89 mL/min/1.73 m2) Lab Interpretation (test code = 10999-7) Abnormal [facility] WITH [id number] 03:12:39* Test Item Value Reference Range Interpretation Comme nts WBC (test code = 6690-2) 6.98 See_Comment [Automated [employer]] The system which generated this result transmitted reference range: 4.20 - 10.70 10*3/?L. The reference range was not used to interpret this result as normal/abnormal. RBC (test code = 789-8) 5.27 See_Comment [Automated [employer]] The system which generated this result transmitted [...] g/dL 31.2-35.0 H RDW-SD (test code = 28755-4) 38.1 fL 38.5-51.6 L RDW-CV (test code = 788-0) 12.3 % 12.1-15.4 PLT (test code = 777-3) 238 See_Comment [Automated messa ge] The system which generated this result transmitted reference range: 150 - 328 10*3/?L. The reference range was not used to interpret this result as normal/abnormal. MPV (test code = 37609-0) 9.8 fL 9.8-13.0 NRBC/100 WBC (test code = 8489674666) 0.0 See_Comment [Automated [employer] ssage] The system which generated this result transmitted reference range: 0.0 - 10.0 /100 WBCs. The reference range was not used to interpret this result as normal/abnormal. NRBC x10^3 (test code = 9308603042) See_Comment [Automated messa ge] The system which generated this result transmitted reference range: 10*3/?L. The reference range was not used to interpret this result as normal/abnormal. GRAN MAT (NEUT) % (test code = 770-8) 37.8 % IMM GRAN % (test code = 5935024350) 0.30 % LYMPH % (test code = 736-9) 52.7 % MONO % (test code = 5905-5) 7.7 % EOS % (test code = 713-8) 1.1 % BASO % (test code = 706-2) 0.4 % GRAN MAT x10^3(ANC) (test code = 4158435174) 2.63 10*3/uL 1.99-6.95 IMM GRAN x10^3 (test code = 7738245370) 0.00-0.06 LYMPH x10^3 (test code = 731-0) 3.68 10*3/uL 1.09-3.23 H MONO x10^3 (test code = 742-7) 0.54 10*3/uL 0.36-1.02 EOS x10^3 (test code = 711-2) 0.08 10*3/uL 0.06-0.53 BASO x10^3 (test code = 704-7) 0.03 10*3/uL 0.01-0.09 Lab Interpretation (test code = 81806-1) Abnormal [facility]villeTROPONIN [id number] 17:24:34* Test Item Value Reference Range Interpretation Comme nts TROPONIN I (test code = 6377318008) 0.018 ng/mL <=0.034 KRYSTLE (test code = [...] of biotin. Lab Interpretation (test code = 50648-6) Normal [facility]villeMAGNESIUM2023-11-11 17:13:15* Test Item Value Reference Range Interpretation Comme nts MAGNESIUM (test code = 4689490412) 1.9 mg/dL 1.7-2.4 Lab Interpretation (test cod e = 69537-0) Normal [facility]villeCOMP. METABOLIC PANEL (09258)2023-07-25 17:12:55* Test Item Value Reference Range Interpretation Comme nts NA (test code = 0775253461) 141 mmol/L 135-145 K (test code = 1532043395) 3.8 mmol/L 3.5-5.0 CL (test code = 3588274743) 106 mmol/L 98-108 CO2 TOTAL (test code = 8361996602) 27 mmol/L 23-31 AGAP (test code = 9785856757) 8 2-16 BUN (test code = 6175058573) 14 mg/dL 7-23 GLUCOSE (test code = 3873570814) 124 mg/dL 70-110 H CREATININE (test code = 6374294817) 0.93 mg/dL 0.60-1.25 TOTAL BILI (test code = 7628395797) 0.8 mg/dL 0.1-1.1 CALCIUM (test code = 6187322387) 9.3 mg/dL 8.6-10.6 T PROTEIN (test code = 2472924099) 8.2 g/dL 6.3-8.2 ALBUMIN (test code = 4273705161) 4.4 g/dL 3.5-5.0 ALK PHOS (test code = 7642398891) 49 U/L 34-122 ALTv (test code = 1742-6) 20 U/L 5-50 AST(SGOT) (test code = 5516523707) 28 U/L 13-40 eGFR (test code = 21107-9) 100.0 mL/min/1.73m2 CKD-EPI eGFR (2020). Assuming creatinine has been stable day-to-day for at least three months, the eGFR indicates Category G1 (>= 90 mL/min/1.73 m2) Lab Interpretation (test code = 11553-8) [facility]normal [facility]ville[facility]2023-11-11 17:12:35* Test Item Value Reference Range Interpretation Comme nts LIPASE (test code = 3509606430) 109 U/L 0-220 Lab Interpretation (test cod e = 47476-2) Normal [facility] WITH [id number] 16:59:59* Test Item Value Reference Range Interpretation Comme nts WBC (test code = 6690-2) 5.17 See_Comment [Automated [employer]] The system which generated this result transmitted reference range: 4.20 - 10.70 10*3/?L. The reference range was not used to interpret this result as normal/abnormal. RBC (test code = 789-8) 5.04 See_Comment [Automated [employer]] The system which generated this result transmitted [...] g/dL 31.2-35.0 H RDW-SD (test code = 73198-0) 39.2 fL 38.5-51.6 RDW-CV (test code = 788-0) 12.5 % 12.1-15.4 PLT (test code = 777-3) 207 See_Comment [Automated [employer] Laba ge] The system which generated this result transmitted reference range: 150 - 328 10*3/?L. The reference range was not used to interpret this result as normal/abnormal. MPV (test code = 16883-3) 10.0 fL 9.8-13.0 NRBC/100 WBC (test code = 5470896903) 0.0 See_Comment [Automated [employer] ssage] The system which generated this result transmitted reference range: 0.0 - 10.0 /100 WBCs. The reference range was not used to interpret this result as normal/abnormal. NRBC x10^3 (test code = 8417787491) See_Comment [Automated [employer] Lab[employer] ge] The system which generated this result transmitted reference range: 10*3/?L. The reference range was not used to interpret this result as normal/abnormal. GRAN MAT (NEUT) % (test code = 770-8) 45.8 % IMM GRAN % (test code = 8236499016) 0.20 % LYMPH % (test code = 736-9) 42.9 % MONO % (test code = 5905-5) 9.9 % EOS % (test code = 713-8) 0.8 % BASO % (test code = 706-2) 0.4 % GRAN MAT x10^3(ANC) (test code = 6368891725) 2.37 10*3/uL 1.99-6.95 IMM GRAN x10^3 (test code = 0448083755) 0.00-0.06 LYMPH x10^3 (test code = 731-0) 2.22 10*3/uL 1.09-3.23 MONO x10^3 (test code = 742-7) 0.51 10*3/uL 0.36-1.02 EOS x10^3 (test code = 711-2) 0.04 10*3/uL 0.06-0.53 L BASO x10^3 (test code = 704-7) 0.01-0.09 Lab Interpretation (test code = 54826-9) Abnormal [facility]villeLIPID PANEL (99330)(TOTAL CHOLESTEROL, TRIGLYCERIDES, HDL)2023-07-24 21:48:18* Test Item Value Reference Range Interpretation Comme nts CHOL (test code = 8823589040) 220 mg/dL 120-200 H HDL (test code = 3931874050) 31 mg/dL >=40 L HDLC RATIO (test code = 7503021834) 7.1 <=5.0 H TRIG (test code = 6909752129) 134 mg/dL 30-170 LDL CHOL (test code = 10422-5) 162 mg/dL <=160 H VLDL (test code = 9965654535) 27 mg/dL 5-60 Lab Interpretation (test cod e = 67199-2) Abnormal [facility]ville[facility] Metabolic Xchjs7582-18-02 20:48:07* Test Item Value Reference Range Interpretation Comme nts NA (test code = 3139077025) 141 mmol/L 135-145 K (test code = 3789770064) 3.8 mmol/L 3.5-5.0 CL (test code = 1396405465) 103 mmol/L 98-108 CO2 TOTAL (test code = 9988443051) 29 mmol/L 23-31 AGAP (test code = 6776672762) 9 2-16 BUN (test code = 7824386940) 14 mg/dL 7-23 GLUCOSE (test code = 0881062781) 102 mg/dL 70-110 CREATININE (test code = 1859772491) 0.85 mg/dL 0.60-1.25 TOTAL BILI (test code = 7783813822) 1.2 mg/dL 0.1-1.1 H CALCIUM (test code = 1040105519) 10.0 mg/dL 8.6-10.6 T PROTEIN (test code = 7063838937) 8.9 g/dL 6.3-8.2 H ALBUMIN (test code = 3168962139) 5.0 g/dL 3.5-5.0 ALK PHOS (test code = 4865328889) 52 U/L 34-122 ALTv (test code = 1742-6) 22 U/L 5-50 AST(SGOT) (test code = 3748047642) 45 U/L 13-40 H eGFR (test code = 71031-2) 105.9 mL/min/1.73m2 CKD-EPI eGFR (2020). Assuming creatinine has been stable day-to-day for at least three months, the eGFR indicates Category G1 (>= 90 mL/min/1.73 m2) Lab Interpretation (test code = 25010-3) Abnormal [facility]villeLip[facility], Etpkf4413-72-94 20:48:07* Test Item Value Reference Range Interpretation Comme nts LIPASE (test code = 5704805016) 134 U/L 0-220 Lab Interpretation (test cod e = 36523-4) Normal [facility] with Ejpabkixrsek7785-69-98 20:20:02* Test Item Value Reference Range Interpretation Comme nts WBC (test code = 6690-2) 6.91 See_Comment [Automated Fragegg] The system which generated this result transmitted reference range: 4.20 - 10.70 10*3/?L. The reference range was not used to interpret this result as normal/abnormal. RBC (test code = 789-8) 5.49 See_Comment [Automated [employer]] The system which generated this result transmitted [...] 34.7 g/dL 31.2-35.0 RDW-SD (test code = 68939-3) 40.0 fL 38.5-51.6 RDW-CV (test code = 788-0) 12.7 % 12.1-15.4 PLT (test code = 777-3) 228 See_Comment [Automated messa ge] The system which generated this result transmitted reference range: 150 - 328 10*3/?L. The reference range was not used to interpret this result as normal/abnormal. MPV (test code = 65883-1) 9.5 fL 9.8-13.0 L NRBC/100 WBC (test code = 9765382250) 0.0 See_Comment [Automated me ssage] The system which generated this result transmitted reference range: 0.0 - 10.0 /100 WBCs. The reference range was not used to interpret this result as normal/abnormal. NRBC x10^3 (test code = 0396893983) See_Comment [Automated messa ge] The system which generated this result transmitted reference range: 10*3/?L. The reference range was not used to interpret this result as normal/abnormal. GRAN MAT (NEUT) % (test code = 770-8) 46.9 % IMM GRAN % (test code = 6671236882) 0.30 % LYMPH % (test code = 736-9) 42.3 % MONO % (test code = 5905-5) 9.8 % EOS % (test code = 713-8) 0.4 % BASO % (test code = 706-2) 0.3 % GRAN MAT x10^3(ANC) (test code = 4066507935) 3.24 10*3/uL 1.99-6.95 IMM GRAN x10^3 (test code = 4424686105) 0.00-0.06 LYMPH x10^3 (test code = 731-0) 2.92 10*3/uL 1.09-3.23 MONO x10^3 (test code = 742-7) 0.68 10*3/uL 0.36-1.02 EOS x10^3 (test code = 711-2) 0.03 10*3/uL 0.06-0.53 L BASO x10^3 (test code = 704-7) 0.01-0.09 Lab Interpretation (test code = 77641-9) [facility]normal [facility] W/WQXU2906-73-99 08:28:00 [facility] 1970 Sex: M PatientName: NOAH PUTNAM Unit No: [id number] EXAMS: CPT CODE: [id number] CT ABD PELVIS W/CONT 16843 EXAM: - CT ABD PELVIS W/CONT INDICATION: [...] extraluminal fluid. IMPRESSION: 1. No acute abnormality. [facility] NAME: NOAH PUTNAM [address] PHYS: [address] [place] [address] : 1970 AGE: 52 SEX: M LOC: Z.ERS PHONE #: [phone] EXAM DATE: 07/23/2023 STATUS: REG ER FAX #: [phone] RAD #: D/C DT PAGE 1 Signed Report (CONTINUED) Patient Name: NOAH PUTNAM Unit No: [id number] EXAMS: CPT CODE: [id number] CT ABD PELVIS W/CONT 90265 (Continued) at 0828 Reported and signed by: Kiara Meza MD CC: Jessie Paul MD Technologist: Jovanni GREEN CTDI: DLP: Trnscrpt: 07/23/2023 (827) YessicaR.CB5 [facility] NAME: NOAH PUTNAM [address] [place] [address] PHYS: [place] [address] : 1970 AGE: 52 SEX: M LOC: MiniERS PHONE #: [phone] EXAM DATE: 07/23/2023 STATUS: REG ER FAX #: [phone] RAD #: D/C DT PAGE 2 Signed Report Patient Name: NOAH PUTNAM Unit No: [id number] EXAMS: CPT CODE: [id number] CT ABD PELVISW/CONT 90382 (Continued) Orig Print D/T: S: 07/23/2023 (830) [facility] NAME: NOAH PUTNAM [address] PHYS: Fabi [place] [address] : 1970 AGE: 52 SEX: M LOC: Z.ERS PHONE #: [phone] EXAM DATE: 07/23/2023 STATUS: REG ER FAX #: [phone] RAD #: D/C DT PAGE 3 Signed ReportURINALYSIS EKDOJVSP4168-44-03 06:32:00* Test Item Value Reference Range Interpretation [...] /mm3 NEGATIVE SOURCE OF URINE: CLEAN CATCHUA FVMUIODIITU8011-84-13 06:32:00* Test Item Value Reference Range Interpretation Comme nts UA RBC (test code = RBCU) 3-5 RBC/HPF 0-3 A UA WBC (test code = XWBCU) 0-3 WBC/HPF 0-5 UA EPITHELIAL CELLS (test co de = EPIU) RARE EPI/HPF FEW UA BACTERIA (test code = XBACU) FEW NONE UA MUCUS (test code = MUCU) MODERATE #/LPF NONE A SOURCE OF URINE: CLEAN [id number] 06:31:00* Test Item Value Reference Range Interpretation Comme nts LIPASE (test code = LIP) 94 UNITS/L 23-300 N [id number]-D9722-25-09 06:31:00* Test Item Value Reference Range Interpretation Comme nts TROPONIN-I (test code = TROPI) 0.019 NG/ML 0.012-0.033 N BASIC METABOLIC [id number] 06:31:00* Test Item Value Reference Range Interpretation [...] CA) 9.5 MG/DL 8.4-10.2 N HEPATIC FUNCTION [id number] 06:31:00* Test Item Value Reference Range Interpretation Comme nts TOTAL PROTEIN (test code = PROT) 9.0 G/DL 6.2-7.6 H Ortho Clinical D iagnostic has made us aware of newinformation regarding the potential interference ofEltrombopag (a bone marrow stimulant used to treatthrombocytonmenia and aplastic anemia) with specific assayson the AVOBs 5600 of which Total Protein is one [...] = ALKP) 57 UNITS/L 38-126 N PROTHROMBIN [id number] 06:07:00* Test Item Value Reference Range Interpretation [...] systemic embolism. 3.0 - 4.5 CBC W/O [id number] 06:00:00* Test Item Value Reference Range Interpretation [...] = NRBC#) 0.00 K/mm3 0.0-0.1 N Troponin [id number] 02:46:51* Test Item Value Reference Range Interpretation Comme nts TROPONIN I (test code = 5844070825) 0.017 ng/mL <=0.034 KRYSTLE (test code = [...] of biotin. Lab Interpretation (test code = 33634-4) Normal [facility]ville[facility]MP2023-10-29 02:35:28* Test Item Value Reference Range Interpretation Comme nts NA (test code = 2259004337) 138 mmol/L 135-145 K (test code = 3754766496) 3.7 mmol/L 3.5-5.0 CL (test code = 2040793145) 106 mmol/L 98-108 CO2 TOTAL (test code = 1615342066) 24 mmol/L 23-31 AGAP (test code = 2157987459) 8 2-16 BUN (test code = 7155445933) 11 mg/dL 7-23 GLUCOSE (test code = 1942809695) 165 mg/dL 70-110 H CREATININE (test code = 9783809938) 0.89 mg/dL 0.60-1.25 TOTAL BILI (test code = 3857631122) 0.2 mg/dL 0.1-1.1 CALCIUM (test code = 7254962081) 9.3 mg/dL 8.6-10.6 T PROTEIN (test code = 9411424166) 7.0 g/dL 6.3-8.2 ALBUMIN (test code = 2969120151) 4.0 g/dL 3.5-5.0 ALK PHOS (test code = 2733185970) 59 U/L 34-122 ALTv (test code = 1742-6) 23 U/L 5-50 AST(SGOT) (test code = 8146965911) 27 U/L 13-40 eGFR (test code = 1951428953) 90.5 mL/min/1.73m2 KRYSTLE (test code = KRYSTLE) [...] imaging tests). Lab Interpretation (test code = 56885-9) Abnormal [facility] with [id number] 02:26:10* Test Item Value Reference Range Interpretation Comme nts WBC (test code = 6690-2) 5.78 See_Comment [Automated Fragegg] The system which generated this result transmitted reference range: 4.20 - 10.70 10*3/?L. The reference range was not used to interpret this result as normal/abnormal. RBC (test code = 789-8) 4.59 See_Comment [Automated [employer]] The system which generated this result transmitted [...] g/dL 31.2-35.0 H RDW-SD (test code = 26650-0) 38.6 fL 38.5-51.6 RDW-CV (test code = 788-0) 12.6 % 12.1-15.4 PLT (test code = 777-3) 200 See_Comment [Automated messa ge] The system which generated this result transmitted reference range: 150 - 328 10*3/?L. The reference range was not used to interpret this result as normal/abnormal. MPV (test code = 97927-6) 9.6 fL 9.8-13.0 L NRBC/100 WBC (test code = 0818521435) 0.0 See_Comment [Automated [employer] ssage] The system which generated this result transmitted reference range: 0.0 - 10.0 /100 WBCs. The reference range was not used to interpret this result as normal/abnormal. NRBC x10^3 (test code = 1768026938) See_Comment [Automated [employer]] The system which generated this result transmitted reference range: 10*3/?L. The reference range was not used to interpret this result as normal/abnormal. GRAN MAT (NEUT) % (test code = 770-8) 36.8 % IMM GRAN % (test code = 7843114926) 0.20 % LYMPH % (test code = 736-9) 54.7 % MONO % (test code = 5905-5) 7.1 % EOS % (test code = 713-8) 0.9 % BASO % (test code = 706-2) 0.3 % GRAN MAT x10^3(ANC) (test code = 6342273838) 2.13 10*3/uL 1.99-6.95 IMM GRAN x10^3 (test code = 8977632179) 0.00-0.06 LYMPH x10^3 (test code = 731-0) 3.16 10*3/uL 1.09-3.23 MONO x10^3 (test code = 742-7) 0.41 10*3/uL 0.36-1.02 EOS x10^3 (test code = 711-2) 0.05 10*3/uL 0.06-0.53 L BASO x10^3 (test code = 704-7) 0.01-0.09 Lab Interpretation (test code = 21056-8) Abnormal [facility]. METABOLIC PANEL (24341)2023-07-03 10:47:01* Test Item Value Reference Range Interpretation Comme nts NA (test code = 8333021336) 138 mmol/L 135-145 K (test code = 5985856784) 4.5 mmol/L 3.5-5.0 Slight hemolysis CL (test code = 4368675687) 103 mmol/L 98-108 CO2 TOTAL (test code = 4053921405) 23 mmol/L 23-31 AGAP (test code = 9352114539) 12 2-16 BUN (test code = 7707117837) 16 mg/dL 7-23 Slight hemolysis GLUCOSE (test code = 4112022759) 142 mg/dL 70-110 H CREATININE (test code = 0216784891) 0.99 mg/dL 0.60-1.25 TOTAL BILI (test code = 7104798497) 1.2 mg/dL 0.1-1.1 H CALCIUM (test code = 8145038315) 9.6 mg/dL 8.6-10.6 T PROTEIN (test code = 5565951357) 8.1 g/dL 6.3-8.2 ALBUMIN (test code = 8779824123) 4.6 g/dL 3.5-5.0 ALK PHOS (test code = 3752271872) 51 U/L 34-122 Slight hemolysis ALTv (test code = 1742-6) 26 U/L 5-50 AST(SGOT) (test code = 9271564729) 32 U/L 13-40 Slight hemolysis eGFR (test code = 2958929796) 80.0 mL/min/1.73m2 KRYSTLE (test code = KRYSTLE) [...] imaging tests). Lab Interpretation (test code = 22108-0) [facility]* Test Item Value Reference Range Interpretation Comme nts LIPASE (test code = 2967047667) 955 U/L 0-220 H Lab Interpretation (test cod e = 08442-7) [facility]normal [facility] WITH [id number] 10:27:34* Test Item Value Reference Range Interpretation Comme nts WBC (test code = 6690-2) 6.60 See_Comment [Automated Fragegg] The system which generated this result transmitted reference range: 4.20 - 10.70 10*3/?L. The reference range was not used to interpret this result as normal/abnormal. RBC (test code = 789-8) 5.32 See_Comment [Automated Fragegg] The system which generated this result transmitted [...] 34.5 g/dL 31.2-35.0 RDW-SD (test code = 45789-2) 39.4 fL 38.5-51.6 RDW-CV (test code = 788-0) 12.3 % 12.1-15.4 PLT (test code = 777-3) 226 See_Comment [Automated [employer]] The system which generated this result transmitted reference range: 150 - 328 10*3/?L. The reference range was not used to interpret this result as normal/abnormal. MPV (test code = 10263-7) 9.6 fL 9.8-13.0 L NRBC/100 WBC (test code = 2440500850) 0.0 See_Comment [Automated [employer] ssage] The system which generated this result transmitted reference range: 0.0 - 10.0 /100 WBCs. The reference range was not used to interpret this result as normal/abnormal. NRBC x10^3 (test code = 5134370415) See_Comment [Automated [employer]] The system which generated this result transmitted reference range: 10*3/?L. The reference range was not used to interpret this result as normal/abnormal. GRAN MAT (NEUT) % (test code = 770-8) 54.9 % IMM GRAN % (test code = 5108752865) 0.20 % LYMPH % (test code = 736-9) 36.2 % MONO % (test code = 5905-5) 7.9 % EOS % (test code = 713-8) 0.5 % BASO % (test code = 706-2) 0.3 % GRAN MAT x10^3(ANC) (test code = 9269805775) 3.63 10*3/uL 1.99-6.95 IMM GRAN x10^3 (test code = 0076995538) 0.00-0.06 LYMPH x10^3 (test code = 731-0) 2.39 10*3/uL 1.09-3.23 MONO x10^3 (test code = 742-7) 0.52 10*3/uL 0.36-1.02 EOS x10^3 (test code = 711-2) 0.03 10*3/uL 0.06-0.53 L BASO x10^3 (test code = 704-7) 0.01-0.09 Lab Interpretation (test code = 17056-6) [facility] W/[id number] 00:06:00 [facility] : 1970 Sex: M Patient Name: NOAH PUTNAM Unit No: [id number] EXAMS: CPT CODE: [id number] CT ABD PELVIS W/CONT 01661 Reason: diffuse abd pain CT Scan of [...] Jennifer Bass MD CC: Jessie Gleason DO; [facility] Technologist: Cory Romero CT Trscrpt Dt/ ([id number] Orig Print D/T: S: 07/02/2023 (000) CTDI: DLP: [place] FSED NAME: NOAH PUTNAM [address] [place] [address] PHYS: MANOLO. - Jessie Gleason [address] : 1970 AGE: 52 SEX: M [place], [place] [address] LOC: D.PER PHONE #: [phone] EXAM DATE: 07/01/2023 STATUS: REG ER FAX #: RAD NO: DC Dt: PAGE 1 Signed ReportTROP-I HIGH [id number] 23:55:00* Test Item Value Reference Range Interpretation [...] troponin from other clinical conditions, the Fourth [place] Definition of Myocardial Infarction stresses clinical assessment and demonstration of a rise and/or fall in serial troponin results above the upper reference limit.Results of this assay method may be falsely depressed orelevated if patient is taking high doses of Biotin. BASIC METABOLIC [id number] 23:55:00* Test Item Value Reference Range Interpretation [...] CA) 9.3 MG/DL 8.7-10.5 N HEPATIC FUNCTION [id number] 23:55:00* Test Item Value Reference Range Interpretation [...] code = ALKP) 60 Units/L 50-136 N [id number] 23:55:00* Test Item Value Reference Range Interpretation Comme nts LIPASE (test code = LIP) 259 U/L 16-77 H New Reference Ranges of 16-77 U/L please reviewrevised from 73-393 U/L on 06/30/2023 CBC W/AUTO [id number] 23:24:00* Test Item Value Reference Range Interpretation [...] = BA#) 0.02 x10 3/uL 0.0-0.2 N [id number] 12:29:00* Test Item Value Reference Range Interpretation Comme nts LIPASE (test code = LIP) 73 Units/L 73-393 N [id number] 17:24:56* Test Item Value Reference Range Interpretation Comme nts LIPASE (test code = 8576943649) 283 U/L 0-220 H Lab Interpretation (test cod e = 83858-2) Abnormal [facility] METABOLIC PANEL (NA, K, CL, CO2, GLUCOSE, BUN, CREATININE, CA)2023-04-22 17:24:35* Test Item Value Reference Range Interpretation Comme nts NA (test code = 1623902966) 139 mmol/L 135-145 K (test code = 3285249729) 4.0 mmol/L 3.5-5.0 CL (test code = 5652813826) 106 mmol/L 98-108 CO2 TOTAL (test code = 7322599193) 25 mmol/L 23-31 AGAP (test code = 2863650095) 8 2-16 BUN (test code = 7278793244) 21 mg/dL 7-23 GLUCOSE (test code = 0621768638) 110 mg/dL 70-110 CREATININE (test code = 5050198827) 1.06 mg/dL 0.60-1.25 CALCIUM (test code = 5930997819) 8.1 mg/dL 8.6-10.6 L eGFR (test code = 1373387420) 74.0 mL/min/1.73m2 KRYSTLE (test code = KRYSTLE) [...] imaging tests). Lab Interpretation (test code = 39488-8) [facility]normal [facility]AT[facility] [id number] 13:57:28* Test Item Value Reference Range Interpretation Comme nts CK (test code = 3283640097) 635 U/L 33-194 H Lab Interpretation (test cod e = 08827-3) [facility] (NA, K, CL, CO2, GLUCOSE, BUN, CREATININE, CA)2023-04-22 13:23:02* Test Item Value Reference Range Interpretation Comme nts NA (test code = 9650562144) 141 mmol/L 135-145 K (test code = 9933912684) 4.0 mmol/L 3.5-5.0 CL (test code = 7730528733) 107 mmol/L 98-108 CO2 TOTAL (test code = 3283365439) 27 mmol/L 23-31 AGAP (test code = 1716241119) 7 2-16 BUN (test code = 9734862991) 22 mg/dL 7-23 GLUCOSE (test code = 1746605714) 94 mg/dL 70-110 CREATININE (test code = 6174230360) 1.26 mg/dL 0.60-1.25 H CALCIUM (test code = 7907319348) 8.3 mg/dL 8.6-10.6 L eGFR (test code = 9632815118) 60.6 mL/min/1.73m2 KRYSTLE (test code = KRYSTLE) [...] imaging tests). Lab Interpretation (test code = 39591-0) [facility] 13:22:41* Test Item Value Reference Range Interpretation Comme nts LIPASE (test code = 5061220599) 897 U/L 0-220 H Lab Interpretation (test cod e = 24181-9) [facility]normal [facility] MET[facility]OLIC PANEL (09049)2023-04-22 09:43:42* Test Item Value Reference Range Interpretation Comme nts NA (test code = 0066976208) 140 mmol/L 135-145 K (test code = 9703860488) 3.7 mmol/L 3.5-5.0 CL (test code = 4346858574) 103 mmol/L 98-108 CO2 TOTAL (test code = 9264224668) 24 mmol/L 23-31 AGAP (test code = 0448211930) 13 2-16 BUN (test code = 1845122644) 24 mg/dL 7-23 H GLUCOSE (test code = 5772243228) 114 mg/dL 70-110 H CREATININE (test code = 9708277401) 1.42 mg/dL 0.60-1.25 H TOTAL BILI (test code = 3745107110) 0.9 mg/dL 0.1-1.1 CALCIUM (test code = 5812918179) 9.5 mg/dL 8.6-10.6 T PROTEIN (test code = 3120135609) 9.2 g/dL 6.3-8.2 H ALBUMIN (test code = 4022750866) 4.9 g/dL 3.5-5.0 ALK PHOS (test code = 6166341299) 66 U/L 34-122 ALTv (test code = 1742-6) 25 U/L 5-50 AST(SGOT) (test code = 3281361899) 37 U/L 13-40 eGFR (test code = 2691135287) 52.8 mL/min/1.73m2 KRYSTLE (test code = KRYSTLE) [...] imaging tests). Lab Interpretation (test code = 49409-6) Abnormal [facility] WITH [id number] 09:33:37* Test Item Value Reference Range Interpretation Comme nts WBC (test code = 6690-2) 8.53 See_Comment [Automated Fr[employer]gg] The system which generated this result transmitted reference range: 4.20 - 10.70 10*3/?L. The reference range was not used to interpret this result as normal/abnormal. RBC (test code = 789-8) 5.60 See_Comment H [Automated [employer]] The system which generated this result transmitted [...] g/dL 31.2-35.0 H RDW-SD (test code = 23054-5) 40.1 fL 38.5-51.6 RDW-CV (test code = 788-0) 13.0 % 12.1-15.4 PLT (test code = 777-3) 267 See_Comment [Automated [employer]] The system which generated this result transmitted reference range: 150 - 328 10*3/?L. The reference range was not used to interpret this result as normal/abnormal. MPV (test code = 43322-3) 9.6 fL 9.8-13.0 L NRBC/100 WBC (test code = 5776925505) 0.0 See_Comment [Automated me ssage] The system which generated this result transmitted reference range: 0.0 - 10.0 /100 WBCs. The reference range was not used to interpret this result as normal/abnormal. NRBC x10^3 (test code = 6297758822) See_Comment [Automated messa ge] The system which generated this result transmitted reference range: 10*3/?L. The reference range was not used to interpret this result as normal/abnormal. GRAN MAT (NEUT) % (test code = 770-8) 44.5 % IMM GRAN % (test code = 5207216300) 0.20 % LYMPH % (test code = 736-9) 43.4 % MONO % (test code = 5905-5) 10.7 % EOS % (test code = 713-8) 0.8 % BASO % (test code = 706-2) 0.4 % GRAN MAT x10^3(ANC) (test code = 3904867957) 3.80 10*3/uL 1.99-6.95 IMM GRAN x10^3 (test code = 3333185965) 0.00-0.06 LYMPH x10^3 (test code = 731-0) 3.70 10*3/uL 1.09-3.23 H MONO x10^3 (test code = 742-7) 0.91 10*3/uL 0.36-1.02 EOS x10^3 (test code = 711-2) 0.07 10*3/uL 0.06-0.53 BASO x10^3 (test code = 704-7) 0.03 10*3/uL 0.01-0.09 Lab Interpretation (test code = 18232-4) [facility] [id number] 13:23:31* Test Item Value Reference Range Interpretation Comme nts TROPONIN I (test code = 6618824329) 0.020 ng/mL <=0.034 KRYSTLE (test code = [...] of biotin. Lab Interpretation (test code = 68230-1) Normal [facility]villeTR[facility] [id number] 13:23:31* Test Item Value Reference Range Interpretation Comme nts TROPONIN I (test code = 6274198183) 0.020 ng/mL <=0.034 KRYSTLE (test code = [...] of biotin. Lab Interpretation (test code = 75113-9) Normal [facility] MET[facility]OLIC PANEL (02836)2023-04-16 12:58:04* Test Item Value Reference Range Interpretation Comme nts NA (test code = 3643831434) 142 mmol/L 135-145 K (test code = 0296243477) 4.0 mmol/L 3.5-5.0 CL (test code = 5044843269) 105 mmol/L 98-108 CO2 TOTAL (test code = 7852505723) 28 mmol/L 23-31 AGAP (test code = 0974074500) 9 2-16 BUN (test code = 5822453650) 11 mg/dL 7-23 GLUCOSE (test code = 9928684117) 115 mg/dL 70-110 H CREATININE (test code = 4317968400) 0.85 mg/dL 0.60-1.25 TOTAL BILI (test code = 3326763388) 0.4 mg/dL 0.1-1.1 CALCIUM (test code = 3038956930) 9.2 mg/dL 8.6-10.6 T PROTEIN (test code = 5128018151) 7.6 g/dL 6.3-8.2 ALBUMIN (test code = 6548074145) 4.4 g/dL 3.5-5.0 ALK PHOS (test code = 4347770435) 52 U/L 34-122 ALTv (test code = 1742-6) 23 U/L 5-50 AST(SGOT) (test code = 8145185966) 33 U/L 13-40 eGFR (test code = 0975744849) 95.4 mL/min/1.73m2 KRYSTLE (test code = KRYSTLE) [...] imaging tests). Lab Interpretation (test code = 07096-1) [facility] 12:58:04* Test Item Value Reference Range Interpretation Comme nts LIPASE (test code = 4633702566) 492 U/L 0-220 H Lab Interpretation (test cod e = 38619-6) [facility]OLIC [facility] (21658)2023-04-16 12:58:04* Test Item Value Reference Range Interpretation Comme nts NA (test code = 0572839696) 142 mmol/L 135-145 K (test code = 4007706449) 4.0 mmol/L 3.5-5.0 CL (test code = 8593011945) 105 mmol/L 98-108 CO2 TOTAL (test code = 0090922177) 28 mmol/L 23-31 AGAP (test code = 5735221870) 9 2-16 BUN (test code = 8200409675) 11 mg/dL 7-23 GLUCOSE (test code = 5244754996) 115 mg/dL 70-110 H CREATININE (test code = 0215954793) 0.85 mg/dL 0.60-1.25 TOTAL BILI (test code = 1525672220) 0.4 mg/dL 0.1-1.1 CALCIUM (test code = 6602030038) 9.2 mg/dL 8.6-10.6 T PROTEIN (test code = 6315929636) 7.6 g/dL 6.3-8.2 ALBUMIN (test code = 5586693017) 4.4 g/dL 3.5-5.0 ALK PHOS (test code = 4619280147) 52 U/L 34-122 ALTv (test code = 1742-6) 23 U/L 5-50 AST(SGOT) (test code = 5733415573) 33 U/L 13-40 eGFR (test code = 8958128230) 95.4 mL/min/1.73m2 KRYSTLE (test code = KRYSTLE) [...] imaging tests). Lab Interpretation (test code = 40708-5) [facility] 12:58:04* Test Item Value Reference Range Interpretation Comme nts LIPASE (test code = 4426903146) 492 U/L 0-220 H Lab Interpretation (test cod e = 13942-2) [facility]normal [facility] WITH [id number] 12:50:01* Test Item Value Reference Range Interpretation Comme nts WBC (test code = 6690-2) 6.75 See_Comment [Automated [employer]] The system which generated this result transmitted reference range: 4.20 - 10.70 10*3/?L. The reference range was not used to interpret this result as normal/abnormal. RBC (test code = 789-8) 5.08 See_Comment [Automated [employer]] The system which generated this result transmitted [...] 34.9 g/dL 31.2-35.0 RDW-SD (test code = 44790-0) 41.4 fL 38.5-51.6 RDW-CV (test code = 788-0) 13.2 % 12.1-15.4 PLT (test code = 777-3) 219 See_Comment [Automated [employer]] The system which generated this result transmitted reference range: 150 - 328 10*3/?L. The reference range was not used to interpret this result as normal/abnormal. MPV (test code = 87354-4) 9.5 fL 9.8-13.0 L NRBC/100 WBC (test code = 3909938152) 0.0 See_Comment [Automated [employer] ssage] The system which generated this result transmitted reference range: 0.0 - 10.0 /100 WBCs. The reference range was not used to interpret this result as normal/abnormal. NRBC x10^3 (test code = 7157744666) See_Comment [Automated [employer]] The system which generated this result transmitted reference range: 10*3/?L. The reference range was not used to interpret this result as normal/abnormal. GRAN MAT (NEUT) % (test code = 770-8) 46.9 % IMM GRAN % (test code = 4425194352) 0.10 % LYMPH % (test code = 736-9) 43.4 % MONO % (test code = 5905-5) 8.4 % EOS % (test code = 713-8) 0.9 % BASO % (test code = 706-2) 0.3 % GRAN MAT x10^3(ANC) (test code = 5786540698) 3.16 10*3/uL 1.99-6.95 IMM GRAN x10^3 (test code = 9470260977) 0.00-0.06 LYMPH x10^3 (test code = 731-0) 2.93 10*3/uL 1.09-3.23 MONO x10^3 (test code = 742-7) 0.57 10*3/uL 0.36-1.02 EOS x10^3 (test code = 711-2) 0.06 10*3/uL 0.06-0.53 BASO x10^3 (test code = 704-7) 0.01-0.09 Lab Interpretation (test code = 09962-2) Abnormal [facility] WITH [id number] 12:50:01* Test Item Value Reference Range Interpretation Comme nts WBC (test code = 6690-2) 6.75 See_Comment [Automated [employer]] The system which generated this result [...] 34.9 g/dL 31.2-35.0 RDW-SD (test code = 97137-0) 41.4 fL 38.5-51.6 RDW-CV (test code = 788-0) 13.2 % 12.1-15.4 PLT (test code = 777-3) 219 See_Comment [Automated [employer]] The system which generated this result transmitted reference range: 150 - 328 10*3/?L. The reference range was not used to interpret this result as normal/abnormal. MPV (test code = 13354-3) 9.5 fL 9.8-13.0 L NRBC/100 WBC (test code = 4112281287) 0.0 See_Comment [Automated me ssage] The system which generated this result transmitted reference range: 0.0 - 10.0 /100 WBCs. The reference range was not used to interpret this result as normal/abnormal. NRBC x10^3 (test code = 3211675406) See_Comment [Automated messa ge] The system which generated this result transmitted reference range: 10*3/?L. The reference range was not used to interpret this result as normal/abnormal. GRAN MAT (NEUT) % (test code = 770-8) 46.9 % IMM GRAN % (test code = 5731571029) 0.10 % LYMPH % (test code = 736-9) 43.4 % MONO % (test code = 5905-5) 8.4 % EOS % (test code = 713-8) 0.9 % BASO % (test code = 706-2) 0.3 % GRAN MAT x10^3(ANC) (test code = 7319778754) 3.16 10*3/uL 1.99-6.95 IMM GRAN x10^3 (test code = 0890356396) 0.00-0.06 LYMPH x10^3 (test code = 731-0) 2.93 10*3/uL 1.09-3.23 MONO x10^3 (test code = 742-7) 0.57 10*3/uL 0.36-1.02 EOS x10^3 (test code = 711-2) 0.06 10*3/uL 0.06-0.53 BASO x10^3 (test code = 704-7) 0.01-0.09 Lab Interpretation (test code = 39752-3) [facility] ([facility]OMATED)2023-02-13 21:02:35* Test Item Value Reference Range Interpretation Comme nts POCT GLU (test code = 1693835815) 118 mg/dL 70-110 H Lab Interpretation (test cod e = 48028-7) Abnormal [facility] WITH [id number] 05:51:48* Test Item Value Reference Range Interpretation [...] 34.4 g/dL 31.2-35.0 RDW-SD (test code = 48376-2) 38.5 fL 38.5-51.6 RDW-CV (test code = 788-0) 12.5 % 12.1-15.4 PLT (test code = 777-3) 216 See_Comment [Automated messa ge] The system which generated this result transmitted reference range: 150 - 328 10*3/?L. The reference range was not used to interpret this result as normal/abnormal. MPV (test code = 61150-5) 10.0 fL 9.8-13.0 NRBC/100 WBC (test code = 9470508807) 0.0 See_Comment [Automated [employer] ssage] The system which generated this result transmitted reference range: 0.0 - 10.0 /100 WBCs. The reference range was not used to interpret this result as normal/abnormal. NRBC x10^3 (test code = 5901208829) See_Comment [Automated messa ge] The system which generated this result transmitted reference range: 10*3/?L. The reference range was not used to interpret this result as normal/abnormal. SEG % (test code = 56275-2) 36 % 33-76 LYMPH % (test code = 42601-0) 48 % 14-54 MONO % (test code = 19908-4) 13 % 0-4 H EOS % (test code = 81290-7) 3 % 0-3 ANC (test code = 753-4) 2.75 10*3/uL 1.99-6.95 Lab Interpretation (test code = 19414-0) Abnormal [facility]. METABOLIC PANEL (51694)2022-12-09 05:24:19* Test Item Value Reference Range Interpretation Comme nts NA (test code = 7305957983) 139 mmol/L 135-145 K (test code = 2608397193) 3.8 mmol/L 3.5-5.0 CL (test code = 6871574216) 105 mmol/L 98-108 CO2 TOTAL (test code = 6432465290) 24 mmol/L 23-31 AGAP (test code = 4388037454) 10 2-16 BUN (test code = 6288048409) 11 mg/dL 7-23 GLUCOSE (test code = 9239918429) 115 mg/dL 70-110 H CREATININE (test code = 6536554046) 0.93 mg/dL 0.60-1.25 TOTAL BILI (test code = 3201003781) 0.8 mg/dL 0.1-1.1 CALCIUM (test code = 7815159709) 9.3 mg/dL 8.6-10.6 T PROTEIN (test code = 4956816422) 8.0 g/dL 6.3-8.2 ALBUMIN (test code = 1233343554) 4.5 g/dL 3.5-5.0 ALK PHOS (test code = 6577294008) 50 U/L 34-122 ALTv (test code = 1742-6) 22 U/L 5-50 AST(SGOT) (test code = 1503304768) 36 U/L 13-40 eGFR (test code = 1102723342) 86.0 mL/min/1.73m2 KRYSTLE (test code = KRYSTLE) [...] imaging tests). Lab Interpretation (test code = 80327-0) [facility] 05:24:18* Test Item Value Reference Range Interpretation Comme nts LIPASE (test code = 4310262949) 271 U/L 0-220 H Lab Interpretation (test cod e = 00145-1) [facility] with Kwumbgsgzsfb5495-49-90 22:09:52* Test Item Value Reference Range Interpretation Comme nts WBC (test code = 6690-2) See_Comment [Automated Fr[employer]gg] The system which generated this result transmitted reference range: 4.20 - 10.70 10*3/?L. The reference range was not used to interpret this result as normal/abnormal. RBC (test code = 789-8) See_Comment [Automated Fr[employer]gg] The system which generated this result transmitted [...] g/dL 31.2-35.0 H RDW-SD (test code = 23149-0) 39.2 fL 38.5-51.6 RDW-CV (test code = 788-0) 12.9 % 12.1-15.4 PLT (test code = 777-3) See_Comment [Automated messa ge] The system which generated this result transmitted reference range: 150 - 328 10*3/?L. The reference range was not used to interpret this result as normal/abnormal. MPV (test code = 63875-6) 9.0 fL 9.8-13.0 L NRBC/100 WBC (test code = 5974465893) See_Comment [Automated [employer] ssage] The system which generated this result transmitted reference range: 0.0 - 10.0 /100 WBCs. The reference range was not used to interpret this result as normal/abnormal. NRBC x10^3 (test code = 5667333552) See_Comment [Automated messa ge] The system which generated this result transmitted reference range: 10*3/?L. The reference range was not used to interpret this result as normal/abnormal. GRAN MAT (NEUT) % (test code = 770-8) 35.3 % IMM GRAN % (test code = 2372026367) 0.00 % LYMPH % (test code = 736-9) 56.0 % MONO % (test code = 5905-5) 7.9 % EOS % (test code = 713-8) 0.4 % BASO % (test code = 706-2) 0.4 % GRAN MAT x10^3(ANC) (test code = 3854611099) 1.87 10*3/uL 1.99-6.95 L IMM GRAN x10^3 (test code = 7787890492) 0.00-0.06 LYMPH x10^3 (test code = 731-0) 2.97 10*3/uL 1.09-3.23 MONO x10^3 (test code = 742-7) 0.42 10*3/uL 0.36-1.02 EOS x10^3 (test code = 711-2) 0.06-0.53 L BASO x10^3 (test code = 704-7) 0.01-0.09 Lab Interpretation (test code = 42999-1) Abnormal [facility] METABOLIC PANEL (NA, K, CL, CO2, GLUCOSE, BUN, CREATININE, CA)2022-10-12 00:25:13* Test Item Value Reference Range Interpretation Comme nts NA (test code = 3312971486) 136 mmol/L 135-145 K (test code = 3399998484) 3.5 mmol/L 3.5-5.0 CL (test code = 6080102180) 103 mmol/L 98-108 CO2 TOTAL (test code = 2913602993) 26 mmol/L 23-31 AGAP (test code = 5332070763) 2-16 BUN (test code = 5388793961) 14 mg/dL 7-23 GLUCOSE (test code = 4657603956) 157 mg/dL 70-110 H CREATININE (test code = 9809266257) 0.80 mg/dL 0.60-1.25 CALCIUM (test code = 8407403189) 8.4 mg/dL 8.6-10.6 L eGFR (test code = 8429159323) mL/min/1.73m2 KRYSTLE (test code = KRYSTLE) Association [...] imaging tests). Lab Interpretation (test code = 38382-9) [id number] (ALB,T.PRO,BILI T,BU/BC,ALT,AST,ALK PHOS)2022-10-12 00:25:13* Test Item Value Reference Range Interpretation Comme nts TOTAL BILI (test code = 1947571717) 1.2 mg/dL 0.1-1.1 H BILI UNCON (test code = 7488170193) 1.0 mg/dL 0.1-1.1 BILI CONJ (test code = 0354037921) 0.0 mg/dL 0.0-0.3 T PROTEIN (test code = 7684434762) 7.1 g/dL 6.3-8.2 ALBUMIN (test code = 9817886805) 4.0 g/dL 3.5-5.0 ALK PHOS (test code = 0616944380) 59 U/L 34-122 ALTv (test code = 1742-6) 38 U/L 5-50 AST(SGOT) (test code = 8414263932) 61 U/L 13-40 H Lab Interpretation (test cod e = 13066-6) [facility]normal [facility] Conf[facility] (Lab Only)2022-10-11 21:35:47* Test Item Value Reference Range Interpretation Comme nts ABO & RH (test code = 20) O Positive Performed at [facility] Laboratory Services - [facility] Blood [address] [address]Cfti Free: [phone] No. [id number] [facility]Type and Screen - ONCE [id number] 21:25:51* Test Item Value Reference Range Interpretation Comme nts ABO & RH (test code = 20) O POSITIVE Performed at [facility] Laboratory Services - [facility] Blood [address] [address]Uvsm Free: [phone] No. [id number] IAT (test code = 1185) Negative Performed at [facility] B Laboratory Services - [facility] Blood [address] [address]Tryw Free: [phone] No. [id number] [facility] WITH [id number] 20:47:43* Test Item Value Reference Range Interpretation [...] g/dL 31.2-35.0 H RDW-SD (test code = 91698-4) 41.1 fL 38.5-51.6 RDW-CV (test code = 788-0) 13.2 % 12.1-15.4 PLT (test code = 777-3) See_Comment [Automated messa ge] The system which generated this result transmitted reference range: 150 - 328 10*3/?L. The reference range was not used to interpret this result as normal/abnormal. MPV (test code = 28699-2) 9.5 fL 9.8-13.0 L NRBC/100 WBC (test code = 3175320071) See_Comment [Automated me ssage] The system which generated this result transmitted reference range: 0.0 - 10.0 /100 WBCs. The reference range was not used to interpret this result as normal/abnormal. NRBC x10^3 (test code = 9182477813) See_Comment [Automated messa ge] The system which generated this result transmitted reference range: 10*3/?L. The reference range was not used to interpret this result as normal/abnormal. GRAN MAT (NEUT) % (test code = 770-8) 38.2 % IMM GRAN % (test code = 7736562779) 0.00 % LYMPH % (test code = 736-9) 53.7 % MONO % (test code = 5905-5) 7.5 % EOS % (test code = 713-8) 0.3 % BASO % (test code = 706-2) 0.3 % GRAN MAT x10^3(ANC) (test code = 5588471655) 2.46 10*3/uL 1.99-6.95 IMM GRAN x10^3 (test code = 2594041626) 0.00-0.06 LYMPH x10^3 (test code = 731-0) 3.46 10*3/uL 1.09-3.23 H MONO x10^3 (test code = 742-7) 0.48 10*3/uL 0.36-1.02 EOS x10^3 (test code = 711-2) 0.06-0.53 L BASO x10^3 (test code = 704-7) 0.01-0.09 Lab Interpretation (test code = 32946-7) [id number]TOTAL CHOLESTEROL, TRIGLYCERIDES, HDL)2022-10-11 20:32:44* Test Item Value Reference Range Interpretation Comme nts CHOL (test code = 3766515884) 195 mg/dL 120-200 HDL (test code = 9083628014) 36 mg/dL See_Comment L [Automated messa ge] The system which generated this result transmitted reference range: >=40. The reference range was not used to interpret this result as normal/abnormal. HDLC RATIO (test code = 1078552030) See_Comment H [Automated messa ge] The system which generated this result transmitted reference range: <=5.0. The reference range was not used to interpret this result as normal/abnormal. TRIG (test code = 2240233956) 84 mg/dL 30-170 LDL CHOL (test code = 90104-5) 142 mg/dL See_Comment [Automated messa ge] The system which generated this result transmitted reference range: <=160. The reference range was not used to interpret this result as normal/abnormal. VLDL (test code = 3084479609) 17 mg/dL 5-60 Lab Interpretation (test code = 58343-1) [facility]normal [facility] [id number] 14:23:55* Test Item Value Reference Range Interpretation Comme nts NT-proBNP (test code = 9112564097) See_Comment [Automated message] The system which generated this result transmitted reference range: <=125. The reference range was not used to interpret this result as normal/abnormal. KRYSTLE (test code = KRYSTLE) Biotin has been reported to cause a negative bias, interpret results relative to patient's use of biotin. Lab Interpretation (test code = 44091-3) Normal [facility]villeACTIV[facility] PARTIAL THRMPLAS [id number] 14:23:25* Test Item Value Reference Range Interpretation Comme nts APTT Patient (test code = 3173-2) See_Comment [Automated message] The system which generated this result transmitted reference range: 23 - 38 Seconds. The reference range was not used to interpret this result as normal/abnormal. KRYSTLE (test code = KRYSTLE) The [email or web address] patient population mean normal value for aPTT is 30 seconds. Lab Interpretation (test code = 67184-9) Normal [facility]2023-[facility]28 14:23:05* Test Item Value Reference Range Interpretation Comme nts LIPASE (test code = 3409807977) 502 U/L 0-220 H Lab Interpretation (test cod e = 54014-3) [facility]44005[facility]11 14:23:05* Test Item Value Reference Range Interpretation Comme nts NA (test code = 4679744957) 139 mmol/L 135-145 K (test code = 8973896212) 5.0 mmol/L 3.5-5.0 Slight hemolysis CL (test code = 7624005549) 103 mmol/L 98-108 CO2 TOTAL (test code = 9253700893) 28 mmol/L 23-31 AGAP (test code = 5769689356) 2-16 BUN (test code = 6471572951) 17 mg/dL 7-23 Slight hemolysis GLUCOSE (test code = 9814104944) 103 mg/dL 70-110 CREATININE (test code = 6246462881) 0.80 mg/dL 0.60-1.25 TOTAL BILI (test code = 4874504353) 1.6 mg/dL 0.1-1.1 H CALCIUM (test code = 5007424603) 9.0 mg/dL 8.6-10.6 T PROTEIN (test code = 4903552891) 8.4 g/dL 6.3-8.2 H ALBUMIN (test code = 9455798712) 4.8 g/dL 3.5-5.0 ALK PHOS (test code = 0620927888) 57 U/L 34-122 Slight hemolysis ALTv (test code = 1742-6) 49 U/L 5-50 AST(SGOT) (test code = 1149783156) 77 U/L 13-40 H Slight hemolysis eGFR (test code = 0936544666) mL/min/1.73m2 KRYSTLE (test code = KRYSTLE) Association [...] imaging tests). Lab Interpretation (test code = 23919-8) [facility]normal [facility]TR[facility] [id number] 14:23:05* Test Item Value Reference Range Interpretation Comments TROPONIN I (test code = 9877146147) 0.018 ng/mL See_Comment [Automated message] The system [...] of biotin. Lab Interpretation (test code = 27725-7) Normal [facility]villePROT[facility]BIN [facility] / [id number] 14:20:24* Test Item Value Reference Range Interpretation [...] the indications. Lab Interpretation (test code = 85237-4) Normal [facility]villeCBC WITH [id number] 13:55:05* Test Item Value Reference Range Interpretation [...] 34.9 g/dL 31.2-35.0 RDW-SD (test code = 63002-0) 40.4 fL 38.5-51.6 RDW-CV (test code = 788-0) 13.0 % 12.1-15.4 PLT (test code = 777-3) See_Comment [Automated [employer] Laba ge] The system which generated this result transmitted reference range: 150 - 328 10*3/?L. The reference range was not used to interpret this result as normal/abnormal. MPV (test code = 21842-9) 9.1 fL 9.8-13.0 L NRBC/100 WBC (test code = 0174693261) See_Comment [Automated [employer] ssage] The system which generated this result transmitted reference range: 0.0 - 10.0 /100 WBCs. The reference range was not used to interpret this result as normal/abnormal. NRBC x10^3 (test code = 4977739544) See_Comment [Automated messa ge] The system which generated this result transmitted reference range: 10*3/?L. The reference range was not used to interpret this result as normal/abnormal. GRAN MAT (NEUT) % (test code = 770-8) 53.2 % IMM GRAN % (test code = 1425938572) 0.10 % LYMPH % (test code = 736-9) 36.6 % MONO % (test code = 5905-5) 9.3 % EOS % (test code = 713-8) 0.5 % BASO % (test code = 706-2) 0.3 % GRAN MAT x10^3(ANC) (test code = 9113097770) 4.25 10*3/uL 1.99-6.95 IMM GRAN x10^3 (test code = 3505277915) 0.00-0.06 LYMPH x10^3 (test code = 731-0) 2.92 10*3/uL 1.09-3.23 MONO x10^3 (test code = 742-7) 0.74 10*3/uL 0.36-1.02 EOS x10^3 (test code = 711-2) 0.04 10*3/uL 0.06-0.53 L BASO x10^3 (test code = 704-7) 0.01-0.09 Lab Interpretation (test code = 00470-7) Abnormal [facility]villeCOMP[facility] METABOLIC PANEL (28454)2022-06-09 13:23:22* Test Item Value Reference Range Interpretation Comme nts NA (test code = 2607915994) 138 mmol/L 135-145 K (test code = 9305553772) 4.5 mmol/L 3.5-5 CL (test code = 5800614429) 106 mmol/L 98-108 CO2 TOTAL (test code = 4097495014) 24 mmol/L 23-31 AGAP (test code = 9253293633) 2-16 BUN (test code = 2031210628) 18 mg/dL 7-23 GLUCOSE (test code = 2895479229) 97 mg/dL 70-110 CREATININE (test code = 6911255312) 0.98 mg/dL 0.6-1.25 TOTAL BILI (test code = 9516091001) 0.5 mg/dL 0.1-1.1 CALCIUM (test code = 5961969221) 9.3 mg/dL 8.6-10.6 T PROTEIN (test code = 5512351738) 7.3 g/dL 6.3-8.2 ALBUMIN (test code = 0330263576) 4.5 g/dL 3.5-5 ALK PHOS (test code = 4549290110) 65 U/L 34-122 ALTv (test code = 1742-6) 27 U/L 5-50 AST(SGOT) (test code = 4838483080) 33 U/L 13-40 eGFR (test code = 7559870301) mL/min/1.73m2 KRYSTLE (test code = KRYSTLE) Association [...] or urine or abnormalities in imaging tests). [facility] 13:23:01* Test Item Value Reference Range Interpretation Comme nts LIPASE (test code = 2988307144) 596 U/L 0-220 H Lab Interpretation (test cod e = 70143-6) Abnormal [facility] WITH [id number] 13:09:00* Test Item Value Reference Range Interpretation Comme nts WBC (test code = 6690-2) See_Comment [Automated messa ge] The system which generated this result transmitted reference range: 4.20 - 10.70 10*3/?L. The reference range was not used to interpret this result as normal/abnormal. RBC (test code = 789-8) See_Comment [Automated [employer] Laba ge] The system which generated this result [...] g/dL 31.2-35 H RDW-SD (test code = 61999-3) 38.3 fL 38.5-51.6 L RDW-CV (test code = 788-0) 12.3 % 12.1-15.4 PLT (test code = 777-3) See_Comment [Automated [employer] Laba ge] The system which generated this result transmitted reference range: 150 - 328 10*3/?L. The reference range was not used to interpret this result as normal/abnormal. MPV (test code = 39121-9) 9.2 fL 9.8-13 L NRBC/100 WBC (test code = 9220059335) See_Comment [Automated [employer] ssage] The system which generated this result transmitted reference range: 0.0 - 10.0 /100 WBCs. The reference range was not used to interpret this result as normal/abnormal. NRBC x10^3 (test code = 9878454448) See_Comment [Automated [employer] Laba ge] The system which generated this result transmitted reference range: 10*3/?L. The reference range was not used to interpret this result as normal/abnormal. GRAN MAT (NEUT) % (test code = 770-8) 47.3 % IMM GRAN % (test code = 1541532540) 0.30 % LYMPH % (test code = 736-9) 43.8 % MONO % (test code = 5905-5) 7.8 % EOS % (test code = 713-8) 0.5 % BASO % (test code = 706-2) 0.3 % GRAN MAT x10^3(ANC) (test code = 7127912192) 3.04 10*3/uL 1.99-6.95 IMM GRAN x10^3 (test code = 2170057997) 0-0.06 LYMPH x10^3 (test code = 731-0) 2.81 10*3/uL 1.09-3.23 MONO x10^3 (test code = 742-7) 0.50 10*3/uL 0.36-1.02 EOS x10^3 (test code = 711-2) 0.03 10*3/uL 0.06-0.53 L BASO x10^3 (test code = 704-7) 0.01-0.09 Lab Interpretation (test code = 08817-4) Abnormal [facility] METABOLIC PANEL (NA, K, CL, CO2, GLUCOSE, BUN, CREATININE, CA)2021-11-01 10:40:12* Test Item Value Reference Range Interpretation Comme nts NA (test code = 0921768166) 136 mmol/L 135-145 K (test code = 1889071593) 4.2 mmol/L 3.5-5.0 CL (test code = 4433618266) 104 mmol/L 98-108 CO2 TOTAL (test code = 1091654830) 31 mmol/L 23-31 AGAP (test code = 7208001202) 2-16 L BUN (test code = 3244955982) 15 mg/dL 7-23 GLUCOSE (test code = 7318920476) 91 mg/dL 70-110 CREATININE (test code = 7205682421) 0.96 mg/dL 0.60-1.25 CALCIUM (test code = 1795160983) 8.5 mg/dL 8.6-10.6 L eGFR (test code = 5066104870) mL/min/1.73m2 KRYSTLE (test code = KRYSTLE) Association [...] imaging tests). Lab Interpretation (test code = 06375-3) [facility]2022-[facility]-18 10:40:12* Test Item Value Reference Range Interpretation Comme nts MAGNESIUM (test code = 8256896648) 1.7 mg/dL 1.7-2.4 Lab Interpretation (test cod e = 79421-3) Normal [facility]PH[facility]2022-02-18 10:39:52* Test Item Value Reference Range Interpretation Comme nts PHOSPHORUS (test code = 1165149419) 4.4 mg/dL 2.5-5.0 Lab Interpretation (test cod e = 90920-1) Normal [facility]villeCBC WITH [id number] 10:25:11* Test Item Value Reference Range Interpretation Comme nts WBC (test code = 6690-2) See_Comment [Automated [employer] Laba [employer]Guide] The system which generated this result transmitted [...] 34.3 g/dL 31.2-35.0 RDW-SD (test code = 01649-2) 38.5 fL 38.5-51.6 RDW-CV (test code = 788-0) 12.3 % 12.1-15.4 PLT (test code = 777-3) See_Comment [Automated [employer] Laba ge] The system which generated this result transmitted reference range: 150 - 328 10*3/?L. The reference range was not used to interpret this result as normal/abnormal. MPV (test code = 46518-3) 9.6 fL 9.8-13.0 L NRBC/100 WBC (test code = 0809174465) See_Comment [Automated [employer] ssage] The system which generated this result transmitted reference range: 0.0 - 10.0 /100 WBCs. The reference range was not used to interpret this result as normal/abnormal. NRBC x10^3 (test code = 0463379077) <0.01 See_Comment [Automated [employer] Laba ge] The system which generated this result transmitted reference range: 10*3/?L. The reference range was not used to interpret this result as normal/abnormal. GRAN MAT (NEUT) % (test code = 770-8) 49.5 % IMM GRAN % (test code = 9759957657) 0.30 % LYMPH % (test code = 736-9) 39.4 % MONO % (test code = 5905-5) 9.7 % EOS % (test code = 713-8) 0.8 % BASO % (test code = 706-2) 0.3 % GRAN MAT x10^3(ANC) (test code = 1674862045) 3.13 10*3/uL 1.99-6.95 IMM GRAN x10^3 (test code = 4236084357) <0.03 0.00-0.06 LYMPH x10^3 (test code = 731-0) 2.49 10*3/uL 1.09-3.23 MONO x10^3 (test code = 742-7) 0.61 10*3/uL 0.36-1.02 EOS x10^3 (test code = 711-2) 0.05 10*3/uL 0.06-0.53 L BASO x10^3 (test code = 704-7) <0.03 0.01-0.09 Lab Interpretation (test code = 54341-4) [facility]normal [facility]villeN-[facility]MIN[facility] [id number] 17:32:56* Test Item Value Reference Range Interpretation Comme nts NT-proBNP (test code = 2429621193) 13 pg/mL See_Comment [Automated message] The system which generated this result transmitted reference range: <=125. The reference range was not used to interpret this result as normal/abnormal. KRYSTLE (test code = KRYSTLE) Biotin has been reported to cause a negative bias, interpret results relative to patient's use of biotin. Lab Interpretation (test code = 08737-7) Normal [facility] [id number] 10:50:49* Test Item Value Reference Range Interpretation Comme nts NT-proBNP (test code = 1238648567) <11 See_Comment [Automated message] The system which generated this result transmitted reference range: <=125 pg/mL. The reference range was not used to interpret this result as normal/abnormal. KRYSTLE (test code = KRYSTLE) Biotin has been reported to cause a negative bias, interpret results relative to patient's use of biotin. Lab Interpretation (test code = 40051-6) Normal [facility]villeTROPONIN [id number] 10:36:56* Test Item Value Reference Range Interpretation Comments TROPONIN I (test code = 5133648017) 0.004 ng/mL See_Comment [Automated message] The system [...] of biotin. Lab Interpretation (test code = 09406-7) Normal [facility]. METABOLIC PANEL (98168)2021-10-31 10:33:50* Test Item Value Reference Range Interpretation Comme nts NA (test code = 6559466317) 139 mmol/L 135-145 K (test code = 7181607492) 4.0 mmol/L 3.5-5.0 CL (test code = 7539678043) 109 mmol/L 98-108 H CO2 TOTAL (test code = 2890693506) 27 mmol/L 23-31 AGAP (test code = 8293648522) 2-16 BUN (test code = 1122625750) 16 mg/dL 7-23 GLUCOSE (test code = 3816018270) 97 mg/dL 70-110 CREATININE (test code = 1298214424) 1.00 mg/dL 0.60-1.25 TOTAL BILI (test code = 3344021728) 1.0 mg/dL 0.1-1.1 CALCIUM (test code = 9737451443) 8.7 mg/dL 8.6-10.6 T PROTEIN (test code = 2622592321) 7.9 g/dL 6.3-8.2 ALBUMIN (test code = 7776783794) 4.4 g/dL 3.5-5.0 ALK PHOS (test code = 8612949662) 60 U/L 34-122 ALTv (test code = 1742-6) 56 U/L 5-50 H AST(SGOT) (test code = 2285363342) 49 U/L 13-40 H eGFR (test code = 2239069640) mL/min/1.73m2 KRYSTLE (test code = KRYSTLE) Association [...] imaging tests). Lab Interpretation (test code = 89845-2) [facility]normal [facility]villeMagnesium [id number] 10:25:32* Test Item Value Reference Range Interpretation Comme nts MAGNESIUM (test code = 0466834969) 1.8 mg/dL 1.7-2.4 Lab Interpretation (test cod e = 69820-2) Normal [facility]2022-02-17 10:25:12* Test Item Value Reference Range Interpretation Comme nts PHOSPHORUS (test code = 7986102760) 3.9 mg/dL 2.5-5.0 Lab Interpretation (test cod e = 83368-5) Normal [facility]villeCREATINE [id number] 10:24:52* Test Item Value Reference Range Interpretation Comme nts CK (test code = 2281191697) 215 U/L 33-194 H Lab Interpretation (test cod e = 91148-3) Abnormal [facility] with Vkkzcvhznexj4872-89-80 10:18:09* Test Item Value Reference Range Interpretation [...] 33.9 g/dL 31.2-35.0 RDW-SD (test code = 37770-5) 41.3 fL 38.5-51.6 RDW-CV (test code = 788-0) 13.0 % 12.1-15.4 PLT (test code = 777-3) See_Comment [Automated messa ge] The system which generated this result transmitted reference range: 150 - 328 10*3/?L. The reference range was not used to interpret this result as normal/abnormal. MPV (test code = 18025-5) 10.0 fL 9.8-13.0 NRBC/100 WBC (test code = 0887184113) See_Comment [Automated [employer] ssage] The system which generated this result transmitted reference range: 0.0 - 10.0 /100 WBCs. The reference range was not used to interpret this result as normal/abnormal. NRBC x10^3 (test code = 0520537019) <0.01 See_Comment [Automated messa ge] The system which generated this result transmitted reference range: 10*3/?L. The reference range was not used to interpret this result as normal/abnormal. GRAN MAT (NEUT) % (test code = 770-8) 46.4 % IMM GRAN % (test code = 8492443647) 0.20 % LYMPH % (test code = 736-9) 44.0 % MONO % (test code = 5905-5) 8.3 % EOS % (test code = 713-8) 0.7 % BASO % (test code = 706-2) 0.4 % GRAN MAT x10^3(ANC) (test code = 6311641811) 3.73 10*3/uL 1.99-6.95 IMM GRAN x10^3 (test code = 5858889999) <0.03 0.00-0.06 LYMPH x10^3 (test code = 731-0) 3.55 10*3/uL 1.09-3.23 H MONO x10^3 (test code = 742-7) 0.67 10*3/uL 0.36-1.02 EOS x10^3 (test code = 711-2) 0.06 10*3/uL 0.06-0.53 BASO x10^3 (test code = 704-7) 0.03 10*3/uL 0.01-0.09 Lab Interpretation (test code = 87778-0) Abnormal [facility]villePROTHROMBIN TIME / [id number] 10:18:09* Test Item Value Reference Range Interpretation Comme nts PROTIME PATIENT (test code = 5964-2) See_Comment [Automated [employer] Laba ge] The system which generated this result transmitted reference range: 12.0 - 14.7 Seconds. The reference range was not used to interpret this result as normal/abnormal. INR (test code = 6301-6) Normal INR <1.1; Warfarin Therapeutic range 2.0 to 3.0 or 2.5 to 3.5, depending upon the indications. Lab Interpretation (test code = 44203-8) Normal [facility]villeTROPONIN [id number] 07:43:50* Test Item Value Reference Range Interpretation Comments TROPONIN I (test code = 1411888369) 0.005 ng/mL See_Comment [Automated message] The system [...] of biotin. Lab Interpretation (test code = 40585-5) Normal [facility]. METABOLIC PANEL (72972)2021-10-30 20:56:25* Test Item Value Reference Range Interpretation Comme nts NA (test code = 0124361591) 139 mmol/L 135-145 K (test code = 6974562494) 4.8 mmol/L 3.5-5.0 CL (test code = 4672050024) 105 mmol/L 98-108 CO2 TOTAL (test code = 6452722186) 26 mmol/L 23-31 AGAP (test code = 9576564743) 2-16 BUN (test code = 5944451791) 18 mg/dL 7-23 GLUCOSE (test code = 2214885218) 135 mg/dL 70-110 H CREATININE (test code = 4164045826) 0.98 mg/dL 0.60-1.25 TOTAL BILI (test code = 4848837333) 0.8 mg/dL 0.1-1.1 CALCIUM (test code = 4810429356) 10.0 mg/dL 8.6-10.6 T PROTEIN (test code = 7622106820) 10.3 g/dL 6.3-8.2 H ALBUMIN (test code = 3187893119) 5.5 g/dL 3.5-5.0 H ALK PHOS (test code = 5079612110) 74 U/L 34-122 ALTv (test code = 1742-6) 69 U/L 5-50 H AST(SGOT) (test code = 4807630932) 59 U/L 13-40 H eGFR (test code = 3002036738) mL/min/1.73m2 KRYSTLE (test code = KRYSTLE) Association [...] imaging tests). Lab Interpretation (test code = 81883-5) [facility] 20:56:05* Test Item Value Reference Range Interpretation Comme nts LIPASE (test code = 2318142899) 70 U/L 0-220 Lab Interpretation (test cod e = 46233-4) Normal [facility]ville[facility] WITH [id number] 20:34:20* Test Item Value Reference Range Interpretation Comme nts WBC (test code = 6690-2) See_Comment H [Automated Fragegg] The system which generated this result transmitted [...] 34.3 g/dL 31.2-35.0 RDW-SD (test code = 34809-5) 40.6 fL 38.5-51.6 RDW-CV (test code = 788-0) 12.8 % 12.1-15.4 PLT (test code = 777-3) See_Comment [Automated messa ge] The system which generated this result transmitted reference range: 150 - 328 10*3/?L. The reference range was not used to interpret this result as normal/abnormal. MPV (test code = 65954-5) 9.2 fL 9.8-13.0 L NRBC/100 WBC (test code = 1395321768) See_Comment [Automated [employer] ssage] The system which generated this result transmitted reference range: 0.0 - 10.0 /100 WBCs. The reference range was not used to interpret this result as normal/abnormal. NRBC x10^3 (test code = 0467435614) <0.01 See_Comment [Automated messa ge] The system which generated this result transmitted reference range: 10*3/?L. The reference range was not used to interpret this result as normal/abnormal. GRAN MAT (NEUT) % (test code = 770-8) 67.1 % IMM GRAN % (test code = 5843257394) 0.40 % LYMPH % (test code = 736-9) 24.5 % MONO % (test code = 5905-5) 7.6 % EOS % (test code = 713-8) 0.1 % BASO % (test code = 706-2) 0.3 % GRAN MAT x10^3(ANC) (test code = 1688559261) 7.34 10*3/uL 1.99-6.95 H IMM GRAN x10^3 (test code = 0901742783) 0.04 10*3/uL 0.00-0.06 LYMPH x10^3 (test code = 731-0) 2.67 10*3/uL 1.09-3.23 MONO x10^3 (test code = 742-7) 0.83 10*3/uL 0.36-1.02 EOS x10^3 (test code = 711-2) <0.03 0.06-0.53 L BASO x10^3 (test code = 704-7) 0.03 10*3/uL 0.01-0.09 Lab Interpretation (test code = 93873-8) [facility]normal [facility]villeCREATINE [id number] 05:55:54* Test Item Value Reference Range Interpretation Comme nts CK (test code = 3917155725) 3682 U/L 33-194 H Lab Interpretation (test cod e = 02482-7) Abnormal [facility]villeCREATINE [id number] 05:55:54* Test Item Value Reference Range Interpretation Comme nts CK (test code = 2907577416) 3682 U/L 33-194 H Lab Interpretation (test cod e = 27174-0) [facility] (NA, K, CL, CO2, GLUCOSE, BUN, CREATININE, CA)2021-05-24 05:02:27* Test Item Value Reference Range Interpretation Comme nts NA (test code = 7893938842) 137 mmol/L 135-145 K (test code = 6933758181) 3.6 mmol/L 3.5-5.0 CL (test code = 8236088389) 105 mmol/L 98-108 CO2 TOTAL (test code = 2465380147) 23 mmol/L 23-31 AGAP (test code = 2366927919) 2-16 BUN (test code = 5997550237) 26 mg/dL 7-23 H GLUCOSE (test code = 9908838491) 95 mg/dL 70-110 CREATININE (test code = 5464796115) 1.31 mg/dL 0.60-1.25 H CALCIUM (test code = 6925080973) 8.6 mg/dL 8.6-10.6 eGFR (test code = 9547089659) mL/min/1.73m2 KRYSTLE (test code = KRYSTLE) Association [...] imaging tests). Lab Interpretation (test code = 77182-0) [facility] (NA, K, CL, CO2, GLUCOSE, BUN, CREATININE, CA)2021-05-24 05:02:27* Test Item Value Reference Range Interpretation Comme nts NA (test code = 7246171535) 137 mmol/L 135-145 K (test code = 2091524235) 3.6 mmol/L 3.5-5.0 CL (test code = 4704714790) 105 mmol/L 98-108 CO2 TOTAL (test code = 1103965402) 23 mmol/L 23-31 AGAP (test code = 2155916591) 2-16 BUN (test code = 5836157503) 26 mg/dL 7-23 H GLUCOSE (test code = 7022117166) 95 mg/dL 70-110 CREATININE (test code = 9913939181) 1.31 mg/dL 0.60-1.25 H CALCIUM (test code = 6500630911) 8.6 mg/dL 8.6-10.6 eGFR (test code = 9176295664) mL/min/1.73m2 KRYSTLE (test code = KRYSTLE) Association [...] imaging tests). Lab Interpretation (test code = 36484-8) [facility] [id number] 02:56:10* Test Item Value Reference Range Interpretation Comments TROPONIN I (test code = 8347705933) 0.004 ng/mL See_Comment [Automated message] The system [...] of biotin. Lab Interpretation (test code = 83383-0) Normal [facility] [id number] 02:56:10* Test Item Value Reference Range Interpretation Comments TROPONIN I (test code = 8188673577) 0.004 ng/mL See_Comment [Automated message] The system [...] of biotin. Lab Interpretation (test code = 20541-2) Normal [facility] [id number] 02:41:54* Test Item Value Reference Range Interpretation Comme nts CK (test code = 1784665892) 4607 U/L 33-194 H Lab Interpretation (test cod e = 14574-1) [facility]normal [facility] [place] [id number] 02:41:54* Test Item Value Reference Range Interpretation Comme nts CK (test code = 1411665588) 4607 U/L 33-194 H Lab Interpretation (test cod e = 68463-7) Abnormal [facility] [place]N-[facility]MINAL [id number] 02:33:28* Test Item Value Reference Range Interpretation Comme nts NT-proBNP (test code = 4986193217) 14 pg/mL See_Comment [Automated message] The system which generated this result transmitted reference range: <=125. The reference range was not used to interpret this result as normal/abnormal. KRYSTLE (test code = KRYSTLE) Biotin has been reported to cause a negative bias, interpret results relative to patient's use of biotin. Lab Interpretation (test code = 76268-3) Normal [facility] [place] [id number] 02:33:28* Test Item Value Reference Range Interpretation Comme [facility] NT-proBNP (test code = 7238123128) 14 pg/mL See_Comment [Automated message] The system which generated this result transmitted reference range: <=125. The reference range was not used to interpret this result as normal/abnormal. KRYSTLE (test code = KRYSTLE) Biotin has been reported to cause a negative bias, interpret results relative to patient's use of biotin. Lab Interpretation (test code = 45806-2) Normal [facility] [place]2021-[facility]-10 02:29:35* Test Item Value Reference Range Interpretation Comme nts APPEARANCE (test code = 0872214871) Clear Clear COLOR (test code = 1868182354) Yellow Yellow PH (test code = 9516423880) 4.8-8.0 SP GRAVITY (test code = 7816568083) 1.003-1.030 GLU U QUAL (test code = 2465921906) Normal Normal BLOOD (test code = 1841218743) Negative Negative KETONES (test code = 2384822830) Negative Negative PROTEIN (test code = 2887-8) Negative Negative UROBILIN (test code = 7682707790) 2.0 mg/dL Normal A BILIRUBIN (test code = 6734089701) Negative Negative NITRITE (test code = 9866193000) Negative Negative LEUK MO (test code = 8997551097) Negative Negative RBC/HPF (test code = 0721756973) See_Comment [Automated messa ge] The system which generated this result transmitted reference range: 0 - 3 HPF. The reference range was not used to interpret this result as normal/abnormal. WBC/HPF (test code = 5064730352) See_Comment [Automated [employer]] The system which generated this result transmitted reference range: 0 - 5 HPF. The reference range was not used to interpret this result as normal/abnormal. BACTERIA (test code = 9494750993) Negative Negative MUCOUS (test code = 6776365165) Slight Negative LPF A SQ EPITH (test code = 7059772994) <1 HPF Lab Interpretation (test code = 02117-9) [facility] [place] 02:29:35* Test Item Value Reference Range Interpretation Comme nts APPEARANCE (test code = 9760046652) Clear Clear COLOR (test code = 8741169471) Yellow Yellow PH (test code = 3885123962) 4.8-8.0 SP GRAVITY (test code = 4889241320) 1.003-1.030 GLU U QUAL (test code = 9271299507) Normal Normal BLOOD (test code = 4677980183) Negative Negative KETONES (test code = 6551031010) Negative Negative PROTEIN (test code = 2887-8) Negative Negative UROBILIN (test code = 9679598688) 2.0 mg/dL Normal A BILIRUBIN (test code = 9742077373) Negative Negative NITRITE (test code = 0106347908) Negative Negative LEUK MO (test code = 8865581691) Negative Negative RBC/HPF (test code = 4837639721) See_Comment [Automated [employer]] The system which generated this result transmitted reference range: 0 - 3 HPF. The reference range was not used to interpret this result as normal/abnormal. WBC/HPF (test code = 1642645609) See_Comment [Automated [employer]] The system which generated this result transmitted reference range: 0 - 5 HPF. The reference range was not used to interpret this result as normal/abnormal. BACTERIA (test code = 3793256692) Negative Negative MUCOUS (test code = 2079313411) Slight Negative LPF A SQ EPITH (test code = 4237349527) <1 HPF Lab Interpretation (test code = 94250-5) [facility]normal [facility] [place] METABOLIC PANEL (20539)2021-05-24 02:25:07* Test Item Value Reference Range Interpretation Comme nts NA (test code = 7973718527) 137 mmol/L 135-145 K (test code = 5037300515) 3.1 mmol/L 3.5-5.0 L CL (test code = 7820740867) 102 mmol/L 98-108 CO2 TOTAL (test code = 5958288248) 22 mmol/L 23-31 L AGAP (test code = 0434126139) 2-16 BUN (test code = 3879945260) 28 mg/dL 7-23 H GLUCOSE (test code = 4991144246) 132 mg/dL 70-110 H CREATININE (test code = 8274964432) 1.77 mg/dL 0.60-1.25 H TOTAL BILI (test code = 2897770280) 1.0 mg/dL 0.1-1.1 CALCIUM (test code = 2922716063) 9.4 mg/dL 8.6-10.6 T PROTEIN (test code = 9024248326) 9.4 g/dL 6.3-8.2 H ALBUMIN (test code = 9778360532) 5.0 g/dL 3.5-5.0 ALK PHOS (test code = 4891687178) 79 U/L 34-122 ALTv (test code = 1742-6) 112 U/L 5-50 H AST(SGOT) (test code = 5486914816) 152 U/L 13-40 H eGFR (test code = 9384112366) mL/min/1.73m2 KRYSTLE (test code = KRYSTLE) Association [...] imaging tests). Lab Interpretation (test code = 17088-8) Abnormal [facility]. METABOLIC PANEL (71182)2021-05-24 02:25:07* Test Item Value Reference Range Interpretation Comme nts NA (test code = 0413561932) 137 mmol/L 135-145 K (test code = 1250919026) 3.1 mmol/L 3.5-5.0 L CL (test code = 2621214543) 102 mmol/L 98-108 CO2 TOTAL (test code = 9742518012) 22 mmol/L 23-31 L AGAP (test code = 6483547204) 2-16 BUN (test code = 4017411521) 28 mg/dL 7-23 H GLUCOSE (test code = 5046331026) 132 mg/dL 70-110 H CREATININE (test code = 2837948696) 1.77 mg/dL 0.60-1.25 H TOTAL BILI (test code = 9564081593) 1.0 mg/dL 0.1-1.1 CALCIUM (test code = 3212157079) 9.4 mg/dL 8.6-10.6 T PROTEIN (test code = 6083754577) 9.4 g/dL 6.3-8.2 H ALBUMIN (test code = 6454662266) 5.0 g/dL 3.5-5.0 ALK PHOS (test code = 8460718640) 79 U/L 34-122 ALTv (test code = 1742-6) 112 U/L 5-50 H AST(SGOT) (test code = 8435903656) 152 U/L 13-40 H eGFR (test code = 8612105076) mL/min/1.73m2 KRYSTLE (test code = KRYSTLE) Association [...] imaging tests). Lab Interpretation (test code = 11607-9) Abnormal [facility] WITH [id number] 02:03:22* Test Item Value Reference Range Interpretation Comme nts WBC (test code = 6690-2) See_Comment [Automated Fragegg] The system which generated this result transmitted reference range: 4.20 - 10.70 10*3/?L. The reference range was not used to interpret this result as normal/abnormal. RBC (test code = 789-8) See_Comment [Automated Fragegg] The system which generated this result transmitted [...] g/dL 31.2-35.0 H RDW-SD (test code = 27264-8) 39.7 fL 38.5-51.6 RDW-CV (test code = 788-0) 12.7 % 12.1-15.4 PLT (test code = 777-3) See_Comment [Automated messa ge] The system which generated this result transmitted reference range: 150 - 328 10*3/?L. The reference range was not used to interpret this result as normal/abnormal. MPV (test code = 31015-0) 9.7 fL 9.8-13.0 L NRBC/100 WBC (test code = 1341440622) See_Comment [Automated [employer] ssage] The system which generated this result transmitted reference range: 0.0 - 10.0 /100 WBCs. The reference range was not used to interpret this result as normal/abnormal. NRBC x10^3 (test code = 7025632754) <0.01 See_Comment [Automated messa ge] The system which generated this result transmitted reference range: 10*3/?L. The reference range was not used to interpret this result as normal/abnormal. GRAN MAT (NEUT) % (test code = 770-8) 45.9 % IMM GRAN % (test code = 1352059065) 0.20 % LYMPH % (test code = 736-9) 41.7 % MONO % (test code = 5905-5) 11.6 % EOS % (test code = 713-8) 0.3 % BASO % (test code = 706-2) 0.3 % GRAN MAT x10^3(ANC) (test code = 0960073086) 3.95 10*3/uL 1.99-6.95 IMM GRAN x10^3 (test code = 8920239371) <0.03 0.00-0.06 LYMPH x10^3 (test code = 731-0) 3.60 10*3/uL 1.09-3.23 H MONO x10^3 (test code = 742-7) 1.00 10*3/uL 0.36-1.02 EOS x10^3 (test code = 711-2) 0.03 10*3/uL 0.06-0.53 L BASO x10^3 (test code = 704-7) 0.03 10*3/uL 0.01-0.09 Lab Interpretation (test code = 61261-3) Abnormal [facility] WITH [id number] 02:03:22* Test Item Value Reference Range Interpretation Comme nts WBC (test code = 6690-2) See_Comment [Automated [employer] Laba ge] The system which generated this result transmitted reference range: 4.20 - 10.70 10*3/?L. The reference range was not used to interpret this result as normal/abnormal. RBC (test code = 789-8) See_Comment [Automated [employer] Laba ge] The system which generated this result [...] g/dL 31.2-35.0 H RDW-SD (test code = 25821-6) 39.7 fL 38.5-51.6 RDW-CV (test code = 788-0) 12.7 % 12.1-15.4 PLT (test code = 777-3) See_Comment [Automated [employer] Laba ge] The system which generated this result transmitted reference range: 150 - 328 10*3/?L. The reference range was not used to interpret this result as normal/abnormal. MPV (test code = 66129-6) 9.7 fL 9.8-13.0 L NRBC/100 WBC (test code = 7166560740) See_Comment [Automated me ssage] The system which generated this result transmitted reference range: 0.0 - 10.0 /100 WBCs. The reference range was not used to interpret this result as normal/abnormal. NRBC x10^3 (test code = 0973966038) <0.01 See_Comment [Automated messa ge] The system which generated this result transmitted reference range: 10*3/?L. The reference range was not used to interpret this result as normal/abnormal. GRAN MAT (NEUT) % (test code = 770-8) 45.9 % IMM GRAN % (test code = 2731287394) 0.20 % LYMPH % (test code = 736-9) 41.7 % MONO % (test code = 5905-5) 11.6 % EOS % (test code = 713-8) 0.3 % BASO % (test code = 706-2) 0.3 % GRAN MAT x10^3(ANC) (test code = 5725847126) 3.95 10*3/uL 1.99-6.95 IMM GRAN x10^3 (test code = 9866019873) <0.03 0.00-0.06 LYMPH x10^3 (test code = 731-0) 3.60 10*3/uL 1.09-3.23 H MONO x10^3 (test code = 742-7) 1.00 10*3/uL 0.36-1.02 EOS x10^3 (test code = 711-2) 0.03 10*3/uL 0.06-0.53 L BASO x10^3 (test code = 704-7) 0.03 10*3/uL 0.01-0.09 Lab Interpretation (test code = 51097-7) [facility] NOW RAPID TESTING)2021-05-02 00:31:00* Test Item Value Reference Range Interpretation Comme nts SARS-CoV-2 Rapid ID NOW (test code = 56361-9) Not Detected Not Detected KRYSTLE (test code = KRYSTLE) ID NOW COVID-19 As say is an isothermal nucleic acid amplification test intended for the qualitative detection of nucleic acid from SARS-CoV-2 viral RNA in nasopharyngeal (CUTTER HAND) specimens. It is used under Emergency Use [...] clinically indicated. Lab Interpretation (test code = 81449-5) Normal [facility] STREP SCREEN FOR GROUP [id number] 00:25:45* Test Item Value Reference Range Interpretation Comme nts Streptococcus pyogenes (grou p A) antigen (test code = 00112-6) Negative Negative Lab Interpretation (test cod e = 75658-7) Normal [facility]-19 (ID NOW RAPID TESTING)2021-04-02 01:41:42* Test Item Value Reference Range Interpretation Comme nts SARS-CoV-2 Rapid ID NOW (test code = 19103-0) Not Detected Not Detected KRYSTLE (test code = KRYSTLE) ID NOW COVID-19 As say is an isothermal nucleic acid amplification test intended for the qualitative detection of nucleic acid from SARS-CoV-2 viral RNA in nasopharyngeal (CUTTER HAND) specimens. It is used under Emergency Use [...] clinically indicated. Lab Interpretation (test code = 88923-0) Normal [facility] STREP SCREEN FOR GROUP [id number] 01:39:31* Test Item Value Reference Range Interpretation Comme nts Streptococcus pyogenes (grou p A) antigen (test code = 70509-9) Negative Negative Lab Interpretation (test cod e = 49998-2) Normal [facility] [place]XR W[facility]ST 3+ VW [id number] 02:41:03 Impression: No acute osseous abnormality. AFC: [id number] of Report Exam: XR WRIST 3+ VW LEFT, 03/17/2021 8:15 PM. Ordering Physician: NIKHIL BLANTNO. History: Wrist pain, felt pop / . Technique: XR WRIST 3+ VW LEFT [...] soft tissue edema.IMPRESSIONImpression: No acute osseous abnormality.AFC: [id number] 460End of Report [facility] 01:32:01* Test Item Value Reference Range Interpretation Comme nts APPEARANCE (test code = 5566870632) Clear Clear COLOR (test code = 6000977140) Yellow Yellow PH (test code = 9829026040) 4.8-8.0 SP GRAVITY (test code = 6223229979) 1.003-1.030 GLU U QUAL (test code = 0332569001) Normal Normal BLOOD (test code = 6896077327) Negative Negative KETONES (test code = 5469521194) Negative Negative PROTEIN (test code = 2887-8) Negative Negative UROBILIN (test code = 3679599626) 2.0 mg/dL Normal A BILIRUBIN (test code = 9097170303) Negative Negative NITRITE (test code = 4856127081) Negative Negative LEUK MO (test code = 3544734284) Negative Negative RBC/HPF (test code = 3303735902) See_Comment [Automated [employer] Laba ge] The system which generated this result transmitted reference range: 0 - 3 HPF. The reference range was not used to interpret this result as normal/abnormal. WBC/HPF (test code = 7951119094) See_Comment [Automated [employer] Laba ge] The system which generated this result transmitted reference range: 0 - 5 HPF. The reference range was not used to interpret this result as normal/abnormal. BACTERIA (test code = 5156110940) Few Negative A MUCOUS (test code = 5560118353) Slight Negative LPF A SQ EPITH (test code = 7724735104) <1 HPF Lab Interpretation (test code = 09720-5) Abnormal [facility] [place] CHEST 1 [id number] 04:09:05Impression: Mild thickening of the sol of the central airways, possibly reflectinginfectious or inflammatory bronchitis. RL: 460 AFC: [id number] Ordering physician: DARNELL HSU Indication: Cough and congestion Comparison: None F indings: Single AP view of the chest. The cardiopericardial silhouette iswithin normal limits. There is mild thickening of the sol of the centralairways. The visualized bony thorax is intact. [facility],Radiant Results Inft User - 11/14/2020 10:10 PM CSTOrdering physician: DARNELL GUERRERONAIndication: Cough and congestionComparison: NoneFindings: Single AP view of the chest. The cardiopericardial silhouette iswithin normal limits. There is mild thickening of the sol of the centralairways. The visualized bony thorax is intact.IMPRESSIONImpression:Mild thickening of the sol of the central airways, possibly reflectinginfectious or inflammatory bronchitis.RL: 460AFC: [id number] signed byMarisol Manzo MD, PhD at 11/14/2020 10:09 PM [facility]villeCOMPREHENSIVE METABOLIC [id number] 00:00:00* Test Item Value Reference Range Interpretation Comme nts GLUCOSE (test code = 2217) 101 MG/DL BUN (test code = 2208) 11 MG/DL CREATININE (test code = 2214) 0.88 MG/DL eGFR AMER. (test cod e = 70445) 118 ML/MIN/1.73 eGFR NON- AMER. (test code = 81156) 102 ML/MIN/1.73 CALC BUN/CREAT (test code = [...] (test code = 2219) 88 U/L N-TERMINAL [id number] 15:43:00* Test Item Value Reference Range Interpretation Comme nts NT-proBNP (test code = 1078393738) <11 See_Comment [Automated message] The system which generated this result transmitted reference range: <=125 pg/mL. The reference range was not used to interpret this result as normal/abnormal. KRYSTLE (test code = KRYSTLE) Biotin has been reported to cause a negative bias, interpret results relative to patient's use of biotin. Lab Interpretation (test code = 31597-8) Normal [facility] [place]CB WITH [id number] 15:27:00* Test Item Value Reference Range Interpretation Comme nts WBC (test code = 6690-2) See_Comment [Automated [employer] Laba ge] The system which generated this result transmitted reference range: 4.20 - 10.70 10*3/?L. The reference range was not used to interpret this result as normal/abnormal. RBC (test code = 789-8) See_Comment [Automated [employer] Laba ge] The system which generated this result [...] g/dL 31.2-35 H RDW-SD (test code = 43579-4) 37.3 fL 38.5-51.6 L RDW-CV (test code = 788-0) 11.9 % 12.1-15.4 L PLT (test code = 777-3) See_Comment [Automated [employer] Laba ge] The system which generated this result transmitted reference range: 150 - 328 10*3/?L. The reference range was not used to interpret this result as normal/abnormal. MPV (test code = 97305-1) 9.7 fL 9.8-13 L NRBC/100 WBC (test code = 7371088769) See_Comment [Automated [employer] ssage] The system which generated this result transmitted reference range: 0.0 - 10.0 /100 WBCs. The reference range was not used to interpret this result as normal/abnormal. NRBC x10^3 (test code = 1303714409) <0.01 See_Comment [Automated [employer] Laba ge] The system which generated this result transmitted reference range: 10*3/?L. The reference range was not used to interpret this result as normal/abnormal. GRAN MAT (NEUT) % (test code = 770-8) 29.2 % IMM GRAN % (test code = 7275052375) 0.20 % LYMPH % (test code = 736-9) 59.0 % MONO % (test code = 5905-5) 10.1 % EOS % (test code = 713-8) 1.1 % BASO % (test code = 706-2) 0.4 % GRAN MAT x10^3(ANC) (test code = 0719931452) 1.57 10*3/uL 1.99-6.95 L IMM GRAN x10^3 (test code = 7285268064) <0.03 0-0.06 LYMPH x10^3 (test code = 731-0) 3.17 10*3/uL 1.09-3.23 MONO x10^3 (test code = 742-7) 0.54 10*3/uL 0.36-1.02 EOS x10^3 (test code = 711-2) 0.06 10*3/uL 0.06-0.53 BASO x10^3 (test code = 704-7) <0.03 0.01-0.09 Lab Interpretation (test code = 13089-5) [facility]normal [facility] [place] CHEST 1 [id number] 15:13:32No acute cardiopulmonary process. Preliminary Report Dictated [...] have reviewed thisstudy and agree withthe above report.[facility] [place]villeTROPONIN [id number] 14:59:00* Test Item Value Reference Range Interpretation Comme nts TROPONIN I (test code = 2680568313) <0.012 See_Comment [Automated message] The system which [...] biotin. ? Lab Interpretation (test code = 06382-6) Normal [facility]. METABOLIC PANEL (55103)2020-09-30 14:59:00* Test Item Value Reference Range Interpretation Comme nts NA (test code = 7497953160) 139 mmol/L 135-145 K (test code = 5771764441) 3.8 mmol/L 3.5-5 CL (test code = 8016611697) 103 mmol/L 98-108 CO2 TOTAL (test code = 7403579889) 26 mmol/L 23-31 AGAP (test code = 2030665792) 2-16 BUN (test code = 1590063526) 11 mg/dL 7-23 GLUCOSE (test code = 9560038651) 163 mg/dL 70-110 H CREATININE (test code = 5303455831) 0.85 mg/dL 0.6-1.25 TOTAL BILI (test code = 5950265098) 0.6 mg/dL 0.1-1.1 CALCIUM (test code = 0866658536) 9.0 mg/dL 8.6-10.6 T PROTEIN (test code = 8287850059) 8.0 g/dL 6.3-8.2 ALBUMIN (test code = 5581054258) 4.4 g/dL 3.5-5 ALK PHOS (test code = 1020787273) 75 U/L 34-122 ALTv (test code = 1742-6) 61 U/L 5-50 H AST(SGOT) (test code = 1836940518) 54 U/L 13-40 H eGFR Calculation (Non-) (test code = 8850616013) mL/min/1.73m2 eGFR Calculation () (test code = 3084805641) mL/min/1.73m2 KRYSTLE (test code = KRYSTLE) Association [...] imaging tests). Lab Interpretation (test code = 02513-2) Abnormal [facility] [place]villeLIPASE, [id number] 14:59:00* Test Item Value Reference Range Interpretation Comme nts LIPASE (test code = 1548337066) 116 U/L 0-220 Lab Interpretation (test cod e = 64006-6) Normal [facility] GreenvilleTroponin [id number] 04:30:00* Test Item Value Reference Range Interpretation Comme nts TROPONIN I (test code = 7463459184) <0.012 See_Comment [Automated message] The system which [...] biotin. ? Lab Interpretation (test code = 12424-5) Normal [facility] GreenvilleComplete Metabolic [id number] 03:24:00* Test Item Value Reference Range Interpretation Comme nts NA (test code = 1436437740) 137 mmol/L 135-145 K (test code = 4777893631) 4.7 mmol/L 3.5-5 CL (test code = 2030283750) 101 mmol/L 98-108 CO2 TOTAL (test code = 4788576251) 27 mmol/L 23-31 AGAP (test code = 4971670443) 2-16 BUN (test code = 4913068184) 16 mg/dL 7-23 GLUCOSE (test code = 3684945692) 226 mg/dL 70-110 H CREATININE (test code = 2777028659) 1.13 mg/dL 0.6-1.25 TOTAL BILI (test code = 2485599757) 0.7 mg/dL 0.1-1.1 CALCIUM (test code = 3126826447) 9.3 mg/dL 8.6-10.6 T PROTEIN (test code = 1999356043) 7.8 g/dL 6.3-8.2 ALBUMIN (test code = 5655064674) 3.9 g/dL 3.5-5 ALK PHOS (test code = 1489963604) 79 U/L 34-122 ALTv (test code = 1742-6) 62 U/L 5-50 H AST(SGOT) (test code = 6238209843) 49 U/L 13-40 H eGFR Calculation (Non-) (test code = 5386790929) mL/min/1.73m2 eGFR Calculation () (test code = 0711509992) mL/min/1.73m2 KRYSTLE (test code = KRYSTLE) Association [...] imaging tests). Lab Interpretation (test code = 18057-3) Abnormal [facility] GreenvilleLipase, [id number] 03:23:00* Test Item Value Reference Range Interpretation Comme nts LIPASE (test code = 7231457427) 317 U/L 0-220 H Lab Interpretation (test cod e = 64665-4) Abnormal [facility]villeCBC with [id number] 03:21:00* Test Item Value Reference Range Interpretation Comme nts WBC (test code = 6690-2) See_Comment [Automated [employer]] The system which generated this result transmitted reference range: 4.20 - 10.70 10*3/?L. The reference range was not used to interpret this result as normal/abnormal. RBC (test code = 789-8) See_Comment [Automated [employer] Laba ge] The system which generated this result [...] g/dL 31.2-35 H RDW-SD (test code = 77714-1) 37.9 fL 38.5-51.6 L RDW-CV (test code = 788-0) 12.4 % 12.1-15.4 PLT (test code = 777-3) See_Comment [Automated [employer]] The system which generated this result transmitted reference range: 150 - 328 10*3/?L. The reference range was not used to interpret this result as normal/abnormal. MPV (test code = 25536-1) 9.7 fL 9.8-13 L NRBC/100 WBC (test code = 7427318874) See_Comment [Automated me ssage] The system which generated this result transmitted reference range: 0.0 - 10.0 /100 WBCs. The reference range was not used to interpret this result as normal/abnormal. NRBC x10^3 (test code = 2012588897) <0.01 See_Comment [Automated messa ge] The system which generated this result transmitted reference range: 10*3/?L. The reference range was not used to interpret this result as normal/abnormal. GRAN MAT (NEUT) % (test code = 770-8) 36.7 % IMM GRAN % (test code = 0312971540) 0.10 % LYMPH % (test code = 736-9) 50.9 % MONO % (test code = 5905-5) 11.1 % EOS % (test code = 713-8) 0.8 % BASO % (test code = 706-2) 0.4 % GRAN MAT x10^3(ANC) (test code = 9098224581) 2.59 10*3/uL 1.99-6.95 IMM GRAN x10^3 (test code = 2672244591) <0.03 0-0.06 LYMPH x10^3 (test code = 731-0) 3.61 10*3/uL 1.09-3.23 H MONO x10^3 (test code = 742-7) 0.79 10*3/uL 0.36-1.02 EOS x10^3 (test code = 711-2) 0.06 10*3/uL 0.06-0.53 BASO x10^3 (test code = 704-7) 0.03 10*3/uL 0.01-0.09 Lab Interpretation (test code = 19326-4) Abnormal [facility] [place] History and Physical Notes Date/Time Note Provider [...] 220). On a 12/2022 hospital stay at [email or web address] he was diagnosed with an idiopathic chronic [...] by mouth daily. 90 tablet 1 Pancrelipase, Vat-Pvnm-Kyih, (Creon) 26357-[address] units [address] Cap [address] Particles Take 1 [...] He was getting medicinal marijuana while in [place] Sexual activity: Yes Partners: Male ROS: 06/27 [...] All questions were answered. Gibran Mcadams MD [facility] Notes Date/Time Note Provider Source 2024-04-02 12:54:12 [...] distress. Left with . Caty Pang RN [facility] 2024-04-02 08:35:20 Pt arrives with c/o upper abd pain, pt states known hx pancreatitis, had recent labs and lipase elevated. Pain present for one week, worsening last 2 days. Phone core analyst recommended coming to ER. Pt has been hospitalized for this. Aminta Novoa RN [facility] 2024-03-30 08:10:34 Chief Complaint Patient presents with Consultation Yosi Dos Santos LVN [facility] 2024-02-20 23:53:18 Pt given printed and verbal [...] in no apparent distress. Carol Siddiqui RN [facility] 2024-02-20 21:42:07 Pt arrived ambulatory with complaints of abdominal pain and constipation x4 days. Pt reports hx of pancreatitis but has been out of Creon prescription for a while. Debora Bhatti RN [facility] 2023-12-09 23:47:26 Pt discharged with diagnosis of lumbar radiculopathy. Printed and verbal instructions reviewed with and given to pt. Prescriptions given x 2. Pt verbalized understanding of teaching, medication, and recommended follow-up. Denies questions or concerns at this time. Pt ambulatory at discharge. Appears in no apparent distress. No ataxia noted. Accompanied by family. Shira Brumfield RN [facility] 2023-12-09 20:10:35 CC: Pt reports left [...] amb with steady gait Carol Wu RN [facility] 2023-12-09 19:46:00 [facility] [[email or web address]] Emergency Department Note Patient Name: Noah Putnam Date of : 1970 53 year old male Treatment Room: [facility] ED [facility] Primary Care Physician: Jimmy Brennan Patient Escorted by: Self [9] Mode of Arrival: Personal means [1] EMS Treatment Prior to ED Arrival: [employer] treatment: None Travel and Exposure Screening: Symptoms [...] years ago while he was living in [place]. As a result of said fall, pt developed chronic recurrent low back pain. No fever or chills. No cauda equina symptoms History provided by: Patient and medical records saw repairer used: No Difficulty Urinating Presenting symptoms: no [...] History: Past Surgical History: Procedure Laterality Date [place] FOREARM OR WRIST SURGERY Left Review of [...] 0.01 - 0.09 10*3/uL COMP. METABOLIC PANEL (17976) - Abnormal NA 141 135 - 145 [...] CONTRAST Cbc with Diff Comp. Metabolic Panel (74197) Urinalysis Orders Placed This Encounter Medications ketorolac (TORADOL) injection 30 mg iopamidol (ISOVUE 370-500 mL) injection 100 mL HYDROcodone-acetaminophen (NORCO) 10-325 mg tablet 1 tablet ketorolac 10 mg tablet methocarbamoL 750 mg tablet First Provider Eval: ED Events Date/Time Event User Comments 12/09/232019 Medical Screening Begins ABRAHAM ORANTES MD -- 12/09/232019 First Provider Evaluation ABRAHAM ORANTES MD -- ED COURSE Diagnosis/Impression as of 12/09/232305 Hematuria of unknown cause Lumbar radiculopathy Procedures: [...] hours as needed (Abdominal pain or cramping). EOKGHS-IZUNANTJ-UDHNYNN (CREON) 3,000-9,500- 15,000 UNIT CAPSULE Take 1 [...] Jimmy Brennan MD Relationship: PCP - General [facility] [address] [place] [id number] Amrik Graham MD Specialty: ORT-ORTHOPAEDIC SURGERY [address] [place] [id number] Electronically signed by: Abraham Orantes MD 12/09/232306 [facility] [[email or web address]] N(i)² 2023-10-06 14:20:14 Chief Complaint Patient presents with New Patient Blood Pressure the patient States he will bring in all his meds the next ov [facility] 2023-07-23 07:15:00 [facility] ([facility]) EMERGENCY PROVIDER REPORT REPORT#:[id number] REPORT STATUS: Signed DATE:07/23/23 TIME: 714 PATIENT: NOAH PUTNAM UNIT #: [id number] ROOM/BED: AGE: 52 SEX: M PCP PHYS: DOES_NOT KNOW SERVICE AUTHOR: Tracy Hall MD R1 LOCATION: [facility] * ALL edits or amendments must be [...] showed that the patient was seen in [place] ED on 07/[address] AP was negative for gallbladder, biliary, pancreatic and GI disease. Patient sees a GI doctor at [facility] and is in the process of [...] Diagnostics Lab Results Interpretation Results Laboratory Tests 07/23/23 0536: [Embedded Image Not Available] Laboratory Tests: 07/23 [...] # (Auto) (1.0 - 3.8 K/mm3) 2.61 [place] # (Auto) (0.1 - 0.8 K/mm3) 0.68 Eos # (Auto) (0.0 - 0.2 K/mm3) 0.04 Baso # (Auto) (0.0 - 0.2 K/mm3) 0.02 Nucleated RBCs # (Man) (0.0 - 0.1 K/mm3) 0.00 Urines Urine Color (YELLOW) YELLOW Urine Appearance (CLEAR) CLEAR Urine pH (5.0 - 9.0) 6.0 Ur Specific Olar (1.003 - 1.030) 1.025 Urine Protein (NEGATIVE [...] in the ED, and will go see [facility] [[email or web address] GI in [place] after discharge. We will send Norflex, Bentyl, [...] Referrals Provider Referral: Karina Nascimento MD Address: [address] [place] [address] Provider Referral: Peter Pérez MD Address: [address] [place] [address] Provider Referral: Adebayo Bagley [employer] Address: [address] [place] [address] Provider Referral: Carola Brooks [employer] Address: [address] [place] [address] Provider Referral: Mary Ibarra MD Address: [address] [place] [address] Provider Referral: Woody Roman [employer] Address: [address] [place] [address] [address] [place] [address] Supervising Physician Note Resident Saw Pt This [...] for patient's abdominal pain. 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 Discussed no indication for admission at this facility which patient understands and agrees with plan. Patient is discharged home with analgesia antiemetics at 1039 at 1048 RPT #:[id number] END OF REPORT [facility] 2023-07-23 05:32:00 [facility] ([facility]) EMERGENCY PROVIDER REPORT REPORT#:[id number] REPORT STATUS: Signed DATE:07/23/23 TIME: 05 PATIENT: NOAH PUTNAM UNIT #: [id number] ROOM/BED: AGE: 52 SEX: M PCP PHYS: SERVICE DT: AUTHOR: Rita Ashford LOCATION: [facility] * ALL edits or amendments must be made on the electronic/computer document * Provider in Triage - Adult Provider in Triage Initial Greet Date/Time 07/23/23 0522 Greet Note I have greeted and performed [...] Surgical History Left wrist surgery at 0533 [facility] #:[id number] END OF REPORT [facility] 2023-07-01 23:26:00 [id number] [place], [place] PATIENT NAME: NOAH PUTNAM ADMIT DATE: 07/01/23 ACCOUNT NO: [id number] ROOM NO: AGE: 52 REPORT TYPE: ELECTROCARDIOGRAM SEX: M : 74 ADMITTING PHYSICIAN: ATTENDING PHYSICIAN:Jessie Gleason DO Order: [id number] Test Reason : abdominal pain Test Date/Time [...] available Confirmed by JESSIE GLEASON DO ([id number]), assignment editor MARCIA GALVEZ ([id number]) on 07/20/2023 3:03:25 PM Referred By: Self Referred Confirmed by:JESSIE GLEASON DO at 1503 PATIENT NAME: NOAH PUTNAM [facility] 2023-07-01 23:22:00 [facility] ([facility] OR A [facility] EMERGENCY PROVIDER REPORT REPORT#:[id number] REPORT STATUS: Signed DATE:07/01/23 TIME: 2321 PATIENT: NOAH PUTNAM UNIT #: [id number] ROOM/BED: AGE: 52 SEX: M PCP PHYS: [...] care urgent care and [facility]. Patient states that he went to [facility] and was discharged with tramadol after [...] % (Auto) (24 - 44 %) 41.1 [place] % (Auto) (0.0 - 4.0 %) 7.4 [...] )( Discharged to Home Yes )( Time 005 )( Date 07/02/23 Discharge/Care Plan Counseled Regarding [...] Tobacco Screening/Cessation Denies tobacco use at 0109 [facility] #:[id number] END OF REPORT [facility] 2023-05-20 15:08:22 Formatting of this n ote is different from the original. Chief Complaint Patient presents with Consultation Andreia Regalado CMA I T [facility] 2023-05-07 23:22:46 Formatting of this n ote might be different from the original. Discharge instructions reviewed with patient. Follow up care discussed. All questions answered by RN. Patient ambulatory to [facility]. Patient in possession of all belongings. RR even and unlabored, VSS, NAD noted. T Steffanie Easley RN [facility] 2023-05-07 23:01:52 Formatting of this n ote might be different from the original. DC hold for fluid admin. [facility] 2023-05-07 22:51:08 Formatting of this n ote might be different from the original. This RN chaperoned DO for rectal exam. [facility] 2023-05-07 20:30:00 Formatting of this n [...] Patient reports he was seen at the [facility] a few days ago and [...] RR even and unlabored. VSS. NAD noted. [facility] 2023-05-07 17:35:38 Formatting of this n ote might be different from the original. Noah Putnam is a 52 year old male presenting to ED with c/o abd pain. Patient reports hx of pancreatitis. Patient reports began having blood in stool today. Patient to green chairs due to ED saturation Helene Newell RN [facility] 2023-05-02 00:32:03 Formatting of this n [...] and in no distress. Marcelo Tsai RN [facility] 2023-05-01 21:28:00 Formatting of this n [...] in the sun today." Lelo Carbajal RN [facility] 2023-04-22 13:03:22 Formatting of this n [...] in no apparent distress, Jacki Rodriguez RN [facility] 2023-04-22 10:35:21 Formatting of this n ote might be different from the original. Patient ate some potatoes from meal tray, states stomach began to cramp. Patient provided juice, states that his boss is going to being him some food that he will also try but states stomach is cramping. Caty Pang RN [facility] 2023-04-22 10:28:09 Formatting of this n ote might be different from the original. Patient provided meal tray. T [facility] 2023-04-22 10:18:30 Formatting of this n ote might be different from the original. Patient encouraged to eat, advised of plan of care. T [facility] 2023-04-22 06:30:24 Formatting of this n ote might be different from the original. Second liter of fluids completed, pt states he is still unable to urinate, RN gave pt a urinal and encouraged pt to try, pt stated that he will but he does not feel like going yet. Carol Siddiqui RN [facility] 2023-04-22 05:20:00 Formatting of this n ote might be different from the original. Pt walked to the bathroom, cannot void. Provider informed, orders received [facility] 2023-04-22 03:56:00 Formatting of this n [...] amb with steady gait Carol Wu RN [facility] 2023-04-22 03:50:00 Formatting of this n [...] components within normal limits COMP. METABOLIC PANEL (38257) - Abnormal; Notable for the following components: [...] pancreatitis type Natali Alexander DO 04/22/23 1238 [facility] 2023-04-16 08:49:36 Formatting of this n [...] complaining about the service. Rachana Pratt RN [facility] 2023-04-16 08:17:00 Formatting of this n ote might be different from the original. This RN and Provider at bedside. Provider explaining to pt that some of his pain could be due to being constipated, images showed pt is constipated. T [facility] 2023-04-16 07:56:11 Formatting of this n ote might be different from the original. Pt returns from X-ray, NAD noted, family remains at bedside. T [facility] 2023-04-16 07:41:37 Formatting of this n ote might be different from the original. Pt transported to X-ray via [facility] [[email or web address]] transport. T [facility] 2023-04-16 07:20:37 Formatting of this n [...] bedside. Provider and this RN at bedside. [facility] 2023-04-16 07:08:22 Formatting of this n ote might be different from the original. Noah Putnam is a 52 year old male presenting to ED with c/o abd pain. Patient reports pain for a few weeks. Patient reports was recently seen and diagnosed with pancreatitis. Patient endorses pain to abd and radiates to back. Patient to room for further eval [facility] Helene Newell RN [facility] 2023-04-16 06:46:00 Formatting of this n ote is different from the original. [facility] [[email or web address]] Emergency Department Note Patient Name: Noah Putnam Date of : 1970 52 year old male Treatment Room: 108/[facility] Primary Care Physician: PATIENT DOES NOT HAVE A PCP Patient Escorted by: Family [5] Mode of Arrival: Personal means [1] EMS Treatment Prior to ED Arrival: [employer] treatment comments: Morning medications Travel and Exposure [...] radiates to back History provided by: Patient saw repairer used: No Abdominal Pain Pain location: Generalized [...] History: Past Surgical History: Procedure Laterality Date AZ FOREARM OR WRIST SURGERY Left Review of [...] 0.01 - 0.09 10*3/uL COMP. METABOLIC PANEL (93086) - Abnormal NA 142 135 - 145 [...] VW CBC WITH DIFF COMP. METABOLIC PANEL (85904) LIPASE TROPONIN I Orders Placed This Encounter Medications NaCl 0.9% (NS) bolus infusion 1,000 mL ketorolac (TORADOL) injection 30 mg dicyclomine (BENTYL) injection 20 mg famotidine (PEPCID (PF)) injection 20 mg lactulose (CEPHULAC) solution 45 mL teejdf-hshygoxc-xipvqes (CREON) 12,000-38,000 -60,000 unit capsule 2 capsule enalaprilat (VASOTEC I.V.) injection 1.25 mg taznij-uusekfia-zqmcxma (CREON) 3,000-9,500- 15,000 unit capsule hyoscyamine sulfate [...] hours as needed (Abdominal pain or cramping). YWBVYX-NPKBUXKQ-IOCYZUD (CREON) 3,000-9,500- 15,000 UNIT CAPSULE Take 1 [...] signed by: Adelaide Goodwin MD 04/16/23 0850 [facility] 2023-04-01 03:22:04 Formatting of this n [...] with steady gait, in no apparent distress. eLlo Carbajal RN [facility] 2023-04-01 00:02:06 Formatting of this n ote might be different from the original. History of chronic pancreatitis. Mid upper abdominal pain for 4 days. Complaining of oily stool. Vomited x2. Anuradha Nolen RN [facility]
[2024-05-25 16:03] LABS: Absolute Eosinophils 0.1 K/uL (0-0.5); Absolute Lymphocytes (CBC) 2.4 K/uL (0.7-4.9); Absolute Monocytes 0.5 K/uL (0.1-1.3); Absolute Neutrophil 3.4 K/uL (1.8-8.0); Basophils % 0.5 % (0-1.3); Eosinophils % 0.9 % (0-4.4); Hematocrit 41.7 % (39.6-49.0); Hemoglobin 14.6 g/dL (13.6-17.9); Lymphocytes % 37.9 % (15.3-44.8); MCH 30.2 pg (27.0-35.0); MCV 86.4 fL (80-100); MPV 7.8 fL (7.6-11.3); Monocytes % 8.1 % (3.3-12.3); Neutrophils % 52.6 % (41.7-73.7); Nucleated Red Blood Cells % 0.2 % (0-0); Platelets 215 thou/uL (152-406); RBC Red Blood Cell Count 4.83 M/uL (4.33-5.43); Red Cell Distribution Width 13.8 % (12.1-15.2)
[2024-05-25 16:17] LABS: Anion Gap 9.5 mEq/L (5.0-15.0); Potassium 3.5 mEq/L (3.5-5.1)
[2024-05-25] MEDS ORDERED: NA CHLORIDE 0.9% 1,000 ML ONE (17:27)
--- NOTE | 2024-05-25 17:41 | RAD REPORT ---
EXAM DESCRIPTION: CT - Soft Tissue Neck W/Contr - 05/25/2024 5:02 pm CLINICAL HISTORY: Neck pain with sore throat COMPARISON: None. TECHNIQUE: Computed axial tomography of the neck was obtained. 50 cc Isovue 300 was administered in travenously. Coronal and sagittal reconstruction was performed. All CT scans are performed using dose optimization technique as appropriate and may include automated exposure control or mA/KV adjustment according to patient size. FINDINGS: Mild prominence of the adenoids and tonsils bilaterally. No abscess The remainder of the pharynx, tongue base, larynx and subglottic trachea appear unremarkable Normal epiglottis The parotid, submandibular and thyroid glands appear unremarkable. No lymphadenopathy is seen No fluid within the sinuses/mastoids IMPRESSION: Mild prominence of the adenoids and tonsils bilaterally
--- NOTE | 2024-05-25 17:44 | ER ---
Nurse's Notes [facility] Name: Noah Putnam Age: 53 yrs Sex: Male : 1970 Arrival Date: 05/25/2024 Time: 15:02 Bed 10 Private MD: Diagnosis: Streptococcal tonsillitis Presentation: 05/25 15:25 Chief complaint: Patient states: throat swollen, came from [facility] , I'm choking iw in my sleep and I'm gargling ,hard for me to swallow , started two weeks ago and now it's worse. Coronavirus screen: At this time, the client does not indicate any symptoms associated with coronavirus-19. Ebola Screen: No symptoms or risks identified at this time. Initial Sepsis Screen: Does the patient meet any 2 criteria? No. Patient's initial sepsis screen is negative. Does the patient have a suspected source of infection? No. Patient's initial sepsis screen is negative. Risk Assessment: Do you want to hurt yourself or someone else? Patient reports no desire to harm self or others. Onset of symptoms was May 11, 2024. 15:25 Method Of Arrival: Ambulatory iw 15:25 Acuity: BREEZY 3 iw Historical: - Allergies: 15:25 Bee Venom; iw - Home Meds: 15:25 amlodipine 10 mg tab 1 tab once daily [Active]; lisinopril 10 mg Oral tab 1 tab once iw daily [Active]; - PMHx: 15:25 Chronic Pancreatitis; Herniated disc; chronic kidney disease; Hypertension; iw - PSHx: 15:25 left arm surgery; iw - Immunization history:: Adult Immunizations not up to date. - Infectious Disease History:: Denies. - Social history:: Smoking status: Patient denies any tobacco usage or history of. Screenin:[address] [facility] ED Fall Risk Assessment (Adult) History of falling in the last 3 months, ap3 including since admission No falls in past 3 months (0 pts) Confusion or Disorientation No (0 pts) Intoxicated or Sedated No (0 pts) Impaired Gait No (0 pts) Mobility Assist Device Used No (0 pt) Altered Elimination No (0 pt) Score/Fall Risk Level 0 - 2 = Low Risk Oriented to surroundings, Maintained a safe environment, Educated pt \T\ family on fall prevention, incl call for assistance when getting out of bed, Assessed \T\ reinforced patient's understanding of fall precautions, Hourly rounding (assess needs \T\ fall precautionary measures) done, Used ambulatory aids as needed (educated on \T\ assisted with), Used gait belt as appropriate. Abuse screen: Denies threats or abuse. Nutritional screening: No deficits noted. Tuberculosis screening: No symptoms or risk factors identified. Assessment: 17:34 General: Appears uncomfortable, Behavior is calm, cooperative, appropriate for age. ap3 Pain: Complains of pain in neck Pain began gradually. Neuro: Level of Consciousness is awake, alert, obeys commands, Oriented to person, place, time, situation. Cardiovascular: Patient's skin is warm and dry. Respiratory: Airway is patent Respiratory effort is even, unlabored, Respiratory pattern is regular, symmetrical. EENT: Throat with gag reflex present, Reports difficulty swallowing pain in throat when swallowing. 17:55 Respiratory: ap3 Vital Signs: 15:25 BP 116 / 79; Pulse 82; Resp 16; Temp 96.9; Pulse Ox 97% on R/A; Weight 121.11 kg; iw Height 6 ft. 5 in. ; 18:02 BP 145 / 90; Pulse 76; Resp 17; Temp 97.6; Pulse Ox 99% on R/A; ap3 15:25 Body Mass Index 31.66 (121.11 kg, 195.58 cm) ED Course: 15:07 Patient arrived in ED. sj2 15:09 [facility] kb 15:09 Jimbo Rivera MD is Attending Physician. kb 15:27 Triage completed. iw 15:27 Arm band placed on. iw 15:48 BMP Sent. bc6 15:48 CBC with Diff Sent. bc6 15:48 Strep Sent. bc6 15:48 Initial lab(s) drawn, by me, sent to lab. Strep swab sent to lab. Inserted saline lock: bc6 20 gauge in right antecubital area, using aseptic technique. Blood collected. Flushed with 10 mL NS. 17:02 CT Soft Tissue Neck W/contr In Process Unspecified. EDMS 17:07 Patient placed in an exam room, on a stretcher. ap3 17:11 Carol Barfield, RN is Primary Nurse. ap3 17:36 Patient has correct armband on for positive identification. Bed in low position. Call ap3 light in reach. Side rails up X 1. 17:55 Provided Education on: medications prior to administration . ap3 17:55 No provider procedures requiring assistance completed. ap3 18:02 IV discontinued, intact, bleeding controlled, No redness/swelling at site. Pressure ap3 dressing applied. Administered Medications: 17:34 Drug: NS 0.9% IV 1000 ml IV at 1000 ml once Route: IV; Rate: 1000 ml; Site: right ap3 antecubital; 18:02 Follow up: IV Status: Completed infusion; IV Intake: 300ml ap3 Medication: 17:36 VIS not applicable for this client. ap3 Intake: 18:02 IV: 300ml; Total: 300ml. ap3 Outcome: 17:43 Discharge ordered by . kb 18:01 Discharged to home ambulatory, ap3 18:01 Condition: good 18:01 Discharge instructions given to patient, Instructed on discharge instructions, follow up and referral plans. medication usage, Demonstrated understanding of instructions, follow-up care, medications, Prescriptions given X 1, 18:02 Patient left the ED. ap3 Signatures: Dispatcher [employer] EDMS Freida Salinas, IT TEACHER-C IT TEACHER-Ckb Brook Siddiqui RN RN Carol Parr RN RN ap3 Meera Douglas6 Francisco Dodson sj2 Corrections: (The following items were deleted from the chart) 15:25 15:25 Allergies: amlodipine; iw iw 15:25 15:25 Allergies: Lisinopril; iw iw 15:28 15:25 BP 116 / 79; Pulse 82bpm; Resp 16bpm; Pulse Ox 97% RA; Temp 96.9F; iw iw
--- NOTE | 2024-05-25 17:44 | EDPHYS ---
Physician Documentation [facility] Name: Noah Putnam Age: 53 yrs Sex: Male : 1970 Arrival Date: 05/25/2024 Time: 15:02 Bed 10 Private MD: ED Physician Jimbo Rivera HPI: 05/25 17:20 This 53 yrs old Black Male presents to ER via Ambulatory with complaints of Sore kb Throat, SWOLLEN THROAT. 17:20 Pt is a 53 year old male who presents for pain to throat that started a week ago. kb States he has had similar pain in the past and had to have something in his throat drained. States he went to [facility] today and was told to come to ER for evaluation. Historical: - Allergies: 15:25 Bee Venom; iw - Home Meds: 15:25 amlodipine 10 mg tab 1 tab once daily [Active]; lisinopril 10 mg Oral tab 1 tab once iw daily [Active]; - PMHx: 15:25 Chronic Pancreatitis; Herniated disc; chronic kidney disease; Hypertension; iw - PSHx: 15:25 left arm surgery; iw - Immunization history:: Adult Immunizations not up to date. - Infectious Disease History:: Denies. - Social history:: Smoking status: Patient denies any tobacco usage or history of. ROS: 17:19 Constitutional: As per HPI kb Exam: 17:19 Constitutional: This is a well developed, well nourished patient who is awake, alert, kb and in no acute distress. Head/Face: Normocephalic, atraumatic. Cardiovascular: Regular rate Respiratory: Respirations even and unlabored. No increased work of breathing. Talking in full sentences Abdomen/GI: Soft, non-tender. No distention Skin: Warm, dry with normal turgor. Normal color. MS/ Extremity: Pulses equal, no cyanosis. Neurovascular intact. Full, normal range of motion. Neuro: Awake and alert, GCS 15, oriented to person, place, time, and situation. Moves all extremities. Normal gait. 17:19 ENT: Posterior pharynx: Airway: normal, Tonsils: bilaterally enlarged, with erythema, Uvula: normal, midline, swelling, that is mild, erythema, that is moderate, exudate, is not appreciated, Vital Signs: 15:25 BP 116 / 79; Pulse 82; Resp 16; Temp 96.9; Pulse Ox 97% on R/A; Weight 121.11 kg; iw Height 6 ft. 5 in. ; 18:02 BP 145 / 90; Pulse 76; Resp 17; Temp 97.6; Pulse Ox 99% on R/A; ap3 15:25 Body Mass Index 31.66 (121.11 kg, 195.58 cm) iw MDM: 15:09 Patient medically screened. kb 17:19 Differential diagnosis: strep, pharyngitis, METEOROLOGIST IN CHARGE. Data reviewed: vital signs, nurses kb notes. 17:43 Counseling: I had a detailed discussion with the patient and/or guardian regarding the kb historical points, exam findings, and any diagnostic results supporting the discharge/admit diagnosis, lab results, radiology results, the need for outpatient follow up, a family practitioner, to return to the emergency department if symptoms worsen or persist or if there are any questions or concerns that arise at home. 05/25 15:31 Order name: Strep; Complete Time: 16:21 kb 05/25 15:38 Order name: CBC with Diff; Complete Time: 16:40 kb 05/25 15:38 Order name: BMP; Complete Time: 16:18 kb 05/25 15:38 Order name: CT Soft Tissue Neck W/contr; Complete Time: 17:43 kb 05/25 15:38 Order name: IV Start; Complete Time: 15:48 kb Administered Medications: 17:34 Drug: NS 0.9% IV 1000 ml IV at 1000 ml once Route: IV; Rate: 1000 ml; Site: right ap3 antecubital; 18:02 Follow up: IV Status: Completed infusion; IV Intake: 300ml ap3 Disposition Summary: 05/25/24 17:43 Discharge Ordered Notes: Location: Home kb Condition: Stable kb Diagnosis - Streptococcal tonsillitis kb Followup: kb - With: Emergency Department - When: As needed - Reason: Worsening of condition Followup: kb - With: Private Physician - When: 2 - 3 days - Reason: Recheck today's complaints, Continuance of care, Re-evaluation by your physician Discharge Instructions: - Discharge Summary Sheet kb - Strep Throat, Adult, [id number] kb Forms: - Medication Reconciliation Form kb - Antibiotic Education kb - Prescription Opioid Use kb - Patient Portal Instructions kb - Leadership Thank You Letter kb Prescriptions: - Augmentin 875-125 mg Oral Tablet - take 1 tablet ORAL route every 12 hours for 10 days; 20 tablet; Refills: 0, kb Product Selection Permitted Addendum: 05/28/2024 15:50 Co-signature as Attending Physician, Jimbo Rivera MD I agree with the assessment and c cain plan of care. Signatures: Dispatcher [employer] Freida Souza, MECHANICAL ENGINEERING INTERN-Pete FRENCHP-Jimbo Carrillo MD MD cha Williams, Irene, RN RN Carol Parr RN RN ap3 Corrections: (The following items were deleted from the chart) 05/25 15:25 15:25 Allergies: amlodipine; [facility] 15:25 15:25 Allergies: Lisinopril; [facility]
[2024-05-25 18:48] VITALS: BP 145/90; TEMP 97.6; O2SAT 99
== END 2024-05-25 18:02 | disposition home or self-care (01) ==
LOC: ER 15:02
DX: J03.00 Acute streptococcal tonsillitis, unspecified (principal)
CPT/HCPCS: 85025; 80048; 36415; 87081; 70491; 99284; Q9967; J7030

== ENCOUNTER 2024-08-05 16:25 | Emergency (ER) | payer OTHER ==
--- OUTSIDE RECORDS SUMMARY | 2024-08-05 16:35 | XMS REPORT | Continuity of Care Document ---
Author Name Unknown Address [address] [facility] [address] [place] [address] [facility] thconnect Address [address] [facility] 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 Name Role Phone Emily Gaines Primary Care Physician [phone] Mayuri James Attending Clinician UnavailOMARI Morales Attending Clinician Unavailable ADRI TAYLOR Attending Clinician Unavailable MD RICKI Attending Clinician Unavailab HAYDEN Choi Attending Clinician Unavailable LEANDRO MANN Attending Clinician Unava ilable LUKE CLARKE Attending Clinician Unavailable LUKE CLARKE Attending Clinician Unavailable Luke Clarke PA-C Attending Clinician [phone] [facility] Attending Clinician Unavailabl FOUZIA Bang Attending Clinician Unavailable GIBRAN MCADAMS Attending Clinician Unavailable BROOK ALLEN Attending Clinician Unav ailable LAB90 Attending Clinician Unavailable Trevor TAYLOR Attending Clinician Unavailable Trevor TAYLOR Attending Clinician Unavailable GERALD VIDAL Attending Clinician Unavailable LAB47 Attending Clinician Unavailable Karl Ferguson MD Attending Clinician [phone] OUTSIDE, REPORTED Attending Clinician UnavailElida Patrick MD Attending Clinician [phone] LETI RIVAS Attending Clinician Unavailable LETI RIVAS Attending Clinician Unavailable ABRAHAM ORANTES Attending Clinician Unavailable Abraham Orantes MD Attending Clinician [phone] Chavez Turner DO Attending Clinician [phone] CALLIE MUNOZ Attending Clinician Unavailable CALLIE MUNOZ Attending Clinician Unavailable ROCKY, MERLYN Attending Clinician Unavailable Doctor Unassigned, [place] Attending Clinician U navailable ADAN CHESTER Attending Clinician Unav ailable KIARA RICHARDSON Attending Clinician Unava ilable JOHNATHAN AVILA Attending Clinician Unavail able Johnathan Avila MD Attending Clinician Jessie Paul Attending Clinician Unavaila JIMMY Mayfield Attending Clinician UnavailSTEPHIE Damian Attending Clinician Unavailab MIRIAM Cervantes Attending Clinician Unavailable MIRIAM LUDWIG Attending Clinician Unavailable Haresh Santamaria MD Attending Clinician + Jessie Gleason Attending Clinician Unavailab le Avery, PhysPrem Attending Clinician Unavailab atilio LAB56 Attending Clinician Unavailable MANFRED LANE Attending Clinician UnavailADYIN Peralta Attending Clinician Unavailable Carlo ALLEN, Aydin Attending Clinician + NATALI ALEXANDER Attending Clinician Unavailab Natali Glass DO Attending Clinician + ADELAIDE GOODWIN Attending Clinician Unavailable Christa ALLEN, Adelaide Attending Clinician [phone] HEMALATHA MORA Attending Clinician Unavailable Vinclul [employer], Hemalatha Attending Clinician +[phone] JESSICA GONZALES S Attending Clinician Unavailable Jessica Pradhan S Attending Clinician [phone] SOHAM CLARKE Attending Clinician Unavaillupillo Clarke MD, Soham Sethi Attending Clinician +[phone] Azam [employer], Lion Attending Clinician + MARK HERNANDEZ Attending Clinician Unavailable Mark Hernandez MD Attending Clinician [phone] Ellen Carroll RN Attending Clinician + [phone] EMELIA GALLEGO Attending Clinician Unavailable Ibcat FRENCHP, Madison F Attending Clinician [phone] Emelia Gallego DO Attending Clinician [phone] Felipe Valdivia Attending Clinician +[phone] FELIPE ORTEGA Attending Clinician Unavailable Elliot HICKS, Gabriella Richard Attending Clinician +10 Nurse, Adc Pob Immunization Attending Clinician Unavailable David Clarke DO Attending Clinician [phone] Nikhil Trevizo Attending Clinician + [phone] NIKHIL BLANTON Attending Clinician Unavailable Pcp, Patient Does Not Have A Attending Clinician Isabela BARRIGA, Mirna Topete Attending Clinician Unavailab Darnell Denny Attending Clinician + [phone] Jessy Siddiuqi DO Attending Clinician +[phone] LUKE CLARKE Admitting Clinician Unavailable Trevor TAYLOR Admitting Clinician Unavailable ABRAHAM ORANTES [...] Clinician Unavailable Mark Hernandez MD Admitting Clinician [phone] Trevor TAYLOR Admitting Clinician Unavailable EMELIA GALLEGO Admitting Clinician Unavailable Emelia Gallego DO Admitting Clinician [phone] DARNELL HSU Admitting Clinician Unavailable Payers Payer Name Policy Type Policy Number Effective Date Expirati on Date Source AET[employer] MP [employer] 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 94 ON 9 [id number] 2023 00:00:00 [employer]ET[employer] W/ LUZ MARIA NG OOO [id number] 2023 00:00:00 [facility] PRO[facility] 2 [id number] 2023 00:00:00 [employer] GENERIC [id number] 2021 00:00:00 [place] [address] [id number] [facility] Problems Condition Name Condition Details Condition Category Status Onset Date Resolution Date Last Treatment Date Treating Clinician Comments Source Bilateral renal cysts Bilateral renal cysts Disease Active 2023-09 00:00: 00 Luz Maria Ng - Externa l Liver hemangioma Liver hemangioma Disease Active 2023-09 00:00: 00 Luz Maria Riveraold - Externa l Well adult exam Well adult exam Disease Active 12-16 00:00: 00 Luz Maria Riveraold - Externa l Class 1 obesity due to excess calories with serious comorbidit y and body mass index (BMI) of 32.0 to 32.9 in adult Class 1 obesity due to excess calories with serious comorbidit y and body mass index (BMI) of 32.0 to 32.9 in adult Disease Active 4-04 00:00: 00 Luz Maria Riveraold - Externa l Chronic pancreatit is (multi HCC) Chronic pancreatit is (multi HCC) Disease Active 10-06 00:00: 00 Luz Maria Semcold - Externa l Chronic hepatitis C (multi HCC) Chronic hepatitis C (multi HCC) Disease Active 10-06 00:00: 00 Luz Maria Ng - Externa l Hypertensi on Hypertensi on Disease Active 10-06 00:00: 00 Luz Maria Riveraold - Externa l GERD (gastroeso phageal reflux disease) GERD (gastroeso phageal reflux disease) Disease Active 10-06 00:00: 00 Luz Maria Riveraold - Externa l BPH (benign prostatic hyperplasi a) BPH (benign prostatic hyperplasi a) Disease Active 10-06 00:00: 00 Luz Maria Riveraold - Externa l Chronic back pain Chronic back pain Disease Active 10-06 00:00: 00 Luz Maria Ng - Externa l Spondylosi s of lumbar spine Spondylosi s of lumbar spine Disease Active 10-06 00:00: 00 Luz Maria Ng - Externa l Epigastric pain Epigastric pain Disease Active 10-11 00:00: 00 [facility] SBO (small bowel obstructio n) SBO (small bowel obstructio n) Disease Active 10-30 00:00: 00 [facility] Obesity (BMI 30-39.9) Obesity (BMI 30-39.9) Disease Active 16 00:00: 00 [facility] No known active problems No known active problems Disease [facility] [id number] Bladder mass Problem [facility] [id number] Microscopi c hematuria Problem [facility] [id number] Suprapubic pain Problem [facility] [id number] Lower urinary tract symptoms Problem [facility] Allergies, Adverse Reactions, Alerts Allergy Name Allergy Type Status Severity Reaction(s) Onset Date Inactive Date Treating Clinician Comments Source bee venom protein (honey bee) DA Active SV THROAT SWELL 2022-09 00:00: 00 [facility] Bee Venom Propensi ty to adverse reaction s Active Swelling 10-30 00:00: 00 Luz Maria Ng - Externa l BEE VENOM PROTEIN (HONEY BEE) DRUG INGREDI Active Swelling 10-30 00:00: 00 [facility] No Known Allergie s DA Active U 04-19 00:00: 00 [facility] NO KNOWN ALLERGIE S Drug Class Active [facility] Social History Social Habit Start Date Stop Date Quantity Comments Source Gender identity Kelsi Ng - External Sexual orientation Trevor Ng - External History of Occupation Luz Maria Ng - External History of tobacco use Cigarette Smoker Luz Maria trivedi - External Alcoholic beverage intake 2024-05-26 00:00:00 2024-05-26 00:00:00 Ex-drinker (finding) Luz Maria Ng - External Cigarettes smoked current (pack per day) - Reported 2024-03-30 00:00:00 2024-03-30 00:00:00 Luz Maria Ng - External Cigarette pack-years 2024-03-30 00:00:00 2024-03-30 00:00:00 Luz Maria Ng - External Alcohol intake [...] 00:00:00 2022-12-08 23:50:00 Not sure [facility] Tobacco use and exposure 2022-10-11 00:00:00 2022-10-11 00:00:00 Smokeless tobacco non-user [facility] Sex 2022-09-11 16:00:01 2022-09-11 16:00:01 Male (finding) Luz Maria Ng - External Sex assigned at 1970 00:00:00 1970 00:00:00 Luz Maria Monten[place]ro Smoking Status Start Date Stop Date Source Ex-smoker 2024-03-30 00:00:00 2024-03-30 00:00:00 Luz Maria Ng - Lan Occasional tobacco smoker 2023-05-20 00:00:00 Luz Maria Monten[place] Never smoked tobacco [facility] Unknown if ever smoked [facility] Medications Ordered Medication Name Filled Medication Name Start Date Stop Date Current Medication? Ordering Clinician Indication Dosage Frequency Signature (SIG) Comments Components Source ketorolac (TORADOL) injection 15 mg 06-08 01:00: 00 06-08 00:42 :00 No 15mg 15 mg, Slow IV Push, ONCE, 1 dose, On Thu06/07/24 at 2000, Routine [facility] HYDROcodone -acetaminop hen (NORCO 5) tablet 1 tablet 06-08 00:15: 00 06-08 00:41 :00 No 1{tbl} 1 tablet, Oral, ONCE, 1 dose, On Thu06/07/24 at 1915, [facility] aspirin chewable tablet 324 mg 06-07 23:30: 00 06-07 22:42 :00 No 324mg 324 mg, Oral, ONCE, 1 dose, On Thu06/07/24 at 1830, Routine [facility] NaCl 0.9% (NS) bolus infusion 1,000 mL 06-07 22:45: 00 06-08 00:45 :00 No 1000mL at 999 mL/hr, 1,000 mL, IV Infusion, ONCE, 1 dose, On Thu06/07/24 at 1745, [facility] nitroglycer in (NITROSTAT) sublingual tablet 0.4 mg 06-07 21:58: 38 Yes .4mg 0.4 mg, Sublingual , Q5MIN PRN, 3 doses, Starting on Thu06/07/24 at 1658, Until Discontinu ed, VASILIY, Chest pain [facility] diclofenac 50 mg tablet 06-07 00:00: 00 06-18 04:59 :00 Yes [id number] 50mg Take 1 tablet by mouth in the morning and 1 tablet at noon and 1 tablet in the evening. Do all this for 10 days. [facility] acetaminoph en-codeine 300-30 mg tablet 06-07 00:00: 00 06-13 04:59 :00 Yes [id number] 1{tbl} Take 1 tablet by mouth every 6 (six) hours as needed for Pain (scale 7-10) for up to 5 days. Indication s: acute pain [facility] Lisinopril 10 MG oral Tablet 05-09 00:00: 00 Yes [id number] 10mg QD Take 1 tablet (10 mg total) by mouth daily. Luz Maria rea Alprazolam (Xanax) 0.25 MG oral Tablet 04-11 00:00: 00 07-20 00:00 :00 No [id number] 107 Take 1 table 45 mins before MRI and 1 tablet just before MRI. Luz Maria rea diphenhydrA MINE:lidoca ine 2% viscous:maa lox 1:1:1 ([facility]) oral suspension 15 mL 04-02 16:30: 00 04-02 15:34 :00 No 15mL 15 mL, Oral (Swish & Swallow), ONCE, 1 dose, On 04/02/24 at 1130, Routine [facility] famotidine (PEPCID (PF)) injection 20 mg 04-02 15:30: 00 04-02 15:34 :00 No 20mg 20 mg, Slow IV Push, ONCE, 1 dose, On 04/02/24 at 1030, VASILIY [facility] NaCl 0.9% (NS) bolus infusion 2,000 mL 04-02 15:15: 00 04-02 17:55 :00 No 2000mL at 999 mL/hr, 2,000 mL, IV Infusion, ONCE, 1 dose, On 04/02/24 at 1015, STAT [facility] ondansetron (ZOFRAN (PF)) injection 4 mg 04-02 15:15: 00 04-02 14:27 :00 No 4mg 4 mg, Slow IV Push, ONCE, 1 dose, On 04/02/24 at 1015, VASILIY [facility] iopamidol (ISOVUE 370-500 mL) injection 90 mL 04-02 14:45: 00 04-02 15:00 :00 No [id number] 90mL 90 mL, Intravenou s, ONCE, 1 dose, On 04/02/24 at 1000, Routine [facility] morpHINE (4 mg/mL) injection 4 mg 04-02 14:15: 00 04-02 14:27 :00 No 4mg 4 mg, Slow IV Push, ONCE, 1 dose, On 04/02/24 at 0915, STAT [facility] Sucralfate 1 g oral Tablet 04-02 00:00: 00 Yes 1g Take 1 tablet (1 g total) by mouth before meals and at bedtime. Luz Maria rea Sod Picosulfate -Mag Ox-Cit Acd (Clenpiq) 10-3.5-12 MG-GM -GM/175ML oral Solution 03-30 00:00: 00 Yes [id number] Instructio ns provided to patient. Follow instructio ns provided by provider.. Luz Maria rea Omeprazole 40 MG oral Delayed Release Capsule 03-30 00:00: 00 Yes [id number] 40mg QD Take 1 capsule (40 mg total) by mouth daily. [facility]z Maria rea NaCl 0.9% (NS) bolus infusion 1,000 mL 02-20 03:45: 00 02-20 04:50 :00 No 1000mL at 999 mL/hr, 1,000 mL, IV Infusion, ONCE, 1 dose, On 02/20/24 [facility] 2245[facility] (SUBLIMAZE (PF)) injection 50 mcg 02-20 03:00: 00 02-20 03:07 :00 No 50ug 50 mcg, Slow IV Push, ONCE, 1 dose, On 02/20/24 at 2200, Routine [facility] metoclopram jerilyn HCl (REGLAN) injection 10 mg 02-20 03:00: 00 02-20 03:07 :00 No 10mg 10 mg, Slow IV Push, ONCE, 1 dose, On 02/20/24 at 2200, [facility] bisacodyL (DULCOLAX) tablet 5 mg 02-20 03:00: 00 02-20 03:07 :00 No 5mg 5 mg, Oral, ONCE NOW, 1 dose, On 02/20/24 at 2200, Routine [facility] dicyclomine 20 mg tablet 02-19 00:00: 00 Yes [id number] 20mg Take 1 tablet by mouth 4 (four) times daily as needed for Abdominal pain. [facility] Bisacodyl (DULCOLAX) 5 MG oral Tablet Delayed Response 02-19 00:00: 00 Yes 5mg QD Take 1 tablet (5 mg total) by mouth daily as needed. Luz Maria rea Ketorolac Tromethamin e 10 MG oral Tablet 12-16 15:16: 47 12-16 00:00 :00 No 10mg Q.25D Take 1 tablet (10 mg total) by mouth every 6 hours as needed for pain FOR PAIN. [facility]z Maria rea Cyclobenzap rine HCl 10 MG oral Tablet 12-16 00:00: 00 Yes [id number] 10mg QD Take 1 tablet (10 mg total) by mouth nightly as needed for muscle spasms. [facility]z Maria rea HYDROcodone -acetaminop hen (NORCO) 10-325 mg tablet 1 tablet 12-09 04:45: 00 12-09 03:57 :00 No 1{tbl} 1 tablet, Oral, ONCE NOW, 1 dose, On Thu12/09/23 at 2345, Routine [facility] iopamidol (ISOVUE 370-500 mL) injection 100 mL 12-09 03:30: 00 12-09 03:30 :00 No [id number] 100mL 100 mL, Intravenou s, ONCE, 1 dose, On Thu12/09/23 at 2230, Routine [facility] ketorolac (TORADOL) injection 30 mg 12-09 03:00: 00 12-09 02:04 :00 No 30mg 30 mg, Slow IV Push, ONCE, 1 dose, On Thu12/09/23 at 2200, Routine [facility] Methocarbam ol 750 MG oral Tablet 12-09 00:00: 00 12-16 00:00 :00 No 750mg Q.25D Take 1 tablet (750 mg total) by mouth every 6 hours as needed FOR PAIN. Luz Maria rea ketorolac 10 mg tablet 12-08 00:00: 00 Yes [id number] 10mg Take 1 tablet by mouth every 6 (six) hours as needed for Pain (scale 7-10). [facility] methocarbam oL 750 mg tablet 12-08 00:00: 00 Yes [id number] 750mg Take 1 tablet by mouth every 6 (six) hours as needed for Pain (scale 7-10) (MUSCLE SPASM). [facility] Ketorolac Tromethamin e (TORADOL IM) 12-05 00:00: 00 12-16 00:00 :00 No Luz Maria rea Lisinopril 10 MG oral Tablet 10-06 14:45: 28 10-06 00:00 :00 No 10mg Take 1 tablet (10 mg total) by mouth daily. Luz Maria rea Gabapentin 300 MG oral Capsule 10-06 00:00: 00 Yes [id number] 300mg Q.5D Take 1 capsule (300 mg total) by mouth 2 times daily as needed. [facility] Maria re[facility] Lisinopril 10 MG oral Tablet 10-06 00:00: 00 Yes [id number] 10mg QD Take 1 tablet (10 mg total) by mouth daily. [facility] Maria re[facility] Pancrelipas e, Lip-Prot-Am yl, (Creon) [id number] units [address] Particles 10-06 00:00: 00 Yes [id number] 1{capsu le} Take 1 capsule by mouth 3 times daily (with meals). Luz Maria rea Amlodipine Besylate 10 MG oral Tablet 10-06 00:00: 00 Yes [id number] 10mg QD Take 1 tablet (10 mg total) by mouth daily. Luz Maria rea Famotidine (PEPCID) 20 MG oral tablet 10-06 00:00: 00 Yes [id number] 20mg Q.5D Take 1 tablet (20 mg total) by mouth 2 times daily. Luz Maria rea Pantoprazol e Sodium 20 MG oral Tablet Delayed Response 10-06 00:00: 00 03-30 00:00 :00 No [id number] 20mg Take 1 tablet (20 mg total) by mouth every morning. [facility] re[facility] HYDROcodone -acetaminop hen (NORCO) 10-325 mg tablet 1 tablet 2022-09 06:45: 00 08-04 05:38 :00 No 1{tbl} 1 tablet, Oral, ONCE NOW, 1 dose, On Thu08/04/23 at 0045, [facility] (ROBAXIN) tablet 1,000 mg 2022-09 05:45: 00 08-04 05:38 :00 No 1000mg 1,000 mg, Oral, ONCE, 1 dose, On Thu08/03/23 at 2345, [facility] FENTanyl PF (SUBLIMAZE (PF)) injection 75 mcg 2022-09 05:00: 00 08-04 04:14 :00 No 75ug 75 mcg, Slow IV Push, ONCE, 1 dose, On 08/03/23 at 2300, Routine [facility] NaCl 0.9% (NS) IV infusion 1,000 mL 2022-09 04:45: 00 08-04 05:39 :00 No 1000mL at 999 mL/hr, Intravenou s, ONCE, 1 dose, On 08/03/23 at 2245, Routine [facility] methocarbam oL 500 mg tablet 2022-09 00:00: 00 Yes [id number] 500mg Take 1 tablet by mouth every 6 (six) hours as needed (MUSCLE SPASM). [facility] HYDROcodone -acetaminop hen (NORCO) 10-325 mg tablet 2022-09 00:00: 00 08-11 05:59 :00 No [id number] 1{tbl} Take 1 tablet by mouth every 6 (six) hours as needed for Pain (scale 7-10) for up to 7 days. Indication s: acute pain [facility] diphenhydrA MINE (BENADRYL) injection 25 mg 2022-09 19:30: 00 07-25 18:34 :00 No 25mg 25 mg, Slow IV Push, ONCE, 1 dose, On 07/25/23 at 1330, STAT [facility] metoclopram jerilyn HCl (REGLAN) injection 10 mg 2022-09 19:30: 00 07-25 18:34 :00 No 10mg 10 mg, Slow IV Push, ONCE, 1 dose, On 07/25/23 at 1330, VASILIY [facility] morpHINE (4 mg/mL) injection 4 mg 2022-09 17:30: 00 07-25 16:43 :00 No 4mg 4 mg, Slow IV Push, ONCE, 1 dose, On 07/25/23 at 1130, STAT [facility] ondansetron (ZOFRAN (PF)) injection 4 mg 2022-09 17:15: 00 07-25 16:43 :00 No 4mg 4 mg, Slow IV Push, ONCE, 1 dose, On 07/25/23 at 1115, VASILIY [facility] NaCl 0.9% (NS) bolus infusion 1,000 mL 2022-09 17:15: 00 07-25 18:54 :00 No 1000mL at 999 mL/hr, 1,000 mL, IV Infusion, ONCE, 1 dose, On 07/25/23 at 1115, STAT [facility] metoclopram jerilyn HCl 10 mg tablet 2022-09 00:00: 00 Yes [id number] 10mg Take 1 tablet by mouth every 6 (six) hours. [facility] sodium chloride (NS) injection 5 mL 2022-09 19:45: 30 Yes 5mL 5 mL, Intravenou s, PRN, Starting on Thu07/24/23 at 1345, Until Discontinu ed, Routine, IV line flushing [facility] dicyclomine 20 mg tablet 2022-09 00:00: 00 02-19 00:00 :00 No [id number] 20mg Take 1 tablet by mouth 4 (four) times daily as needed for Abdominal pain. [facility] ketorolac (TORADOL) injection 15 mg 2022-09 03:15: 00 07-12 02:32 :00 No 15mg 15 mg, Slow IV Push, ONCE, 1 dose, On 07/11/23 at 2215, Routine [facility] methocarbam oL (ROBAXIN) tablet 1,000 mg 2022-09 02:30: 00 07-12 02:32 :00 No 1000mg 1,000 mg, Oral, ONCE, 1 dose, On 07/11/23 at 2130, VASILIY [facility] famotidine (PEPCID (PF)) injection 20 mg 2022-09 02:30: 00 07-12 02:32 :00 No 20mg 20 mg, Slow IV Push, ONCE, 1 dose, On 07/11/23 at 2130, VASILIY [facility] aspirin chewable tablet 324 mg 2022-09 02:15: 00 07-12 02:31 :00 No 324mg 324 mg, Oral, ONCE, 1 dose, On Thu07/11/23 at 2115, STAT [facility] HYDROcodone -acetaminop hen 5-325 mg tablet 2022-09 00:00: 00 07-15 04:59 :00 No [id number] 1{tbl} Take 1 tablet by mouth every 4 (four) hours as needed for Pain (scale 7-10) for up to 3 days. Indication s: acute pain [facility] omeprazole 40 mg capsule 2022-09 00:00: 00 Yes [id number] 40mg Take 1 capsule by mouth in the morning and 1 capsule in the evening. [facility] peg-electro lyte soln 236-22.74-6 .74 -5.86 gram solution 2022-09 00:00: 00 Yes [id number] Take as directed before colonoscop y [facility] Lisinopril 10 MG oral Tablet 2022-09 [...] ONCE, 1 dose, On Thu07/03/23 at 0845, [facility] famotidine (PEPCID (PF)) injection 20 mg 2022-09 13:00: 00 07-03 12:49 :00 No 20mg 20 mg, Slow IV Push, ONCE, 1 dose, On Thu07/03/23 at 0800, [facility] iohexol (OMNIPAQUE 350 BULK-100 mL) injection 80 mL 2022-09 10:40: 00 07-03 10:40 :00 No [id number] 80mL 80 mL, Intravenou s, ONCE, 1 dose, On Thu07/03/23 at 0545, Routine [facility] ondansetron (ZOFRAN (PF)) injection 4 mg 2022-09 10:15: 00 07-03 10:20 :00 No 4mg 4 mg, Slow IV Push, ONCE, 1 dose, On Thu07/03/23 at 0515, VASILIY [facility] morpHINE (4 mg/mL) injection 4 mg 2022-09 10:15: 07-03 10:20 :00 No 4mg 4 mg, Slow IV Push, ONCE, 1 dose, On Thu07/03/23 at 0515, STAT [facility] Pantoprazol e Sodium 20 MG oral [...] 2022-09 00:00: 00 07-10 00:00 :00 No [id number] 20mg Take 1 tablet by mouth in the morning and 1 tablet in the evening. [facility] Lisinopril 10 MG oral Tablet 05-20 15:08: 12 Yes 10mg Take 1 tablet (10 mg total) by mouth daily. [facility]z Maria rea Tamsulosin HCl 0.4 MG oral Capsule 05-20 00:00: 00 Yes .4mg Take 1 capsule (0.4 mg total) by mouth every night at bedtime. [facility] iopamidol (ISOVUE 370-500 mL) injection 80 mL 05-08 03:15: 00 05-08 02:12 :00 No [id number] 80mL 80 mL, Intravenou s, ONCE, 1 dose, On Carrie 05/07/23 at 2215, Routine [facility] morpHINE (4 mg/mL) injection 4 mg 05-08 01:00: 00 05-08 01:38 :00 No 4mg 4 mg, Slow IV Push, ONCE, 1 dose, On Carrie 05/07/23 at 2000, [facility] NaCl 0.9% (NS) bolus infusion 1,000 mL 05-08 01:00: 00 05-08 04:22 :00 No 1000mL at 999 mL/hr, 1,000 mL, IV Infusion, ONCE, 1 dose, On Carrie 05/07/23 at 2000, [facility] NaCl 0.9% (NS) bolus infusion 1,000 mL 05-02 05:15: 00 05-02 05:29 :00 No 1000mL at 999 mL/hr, 1,000 mL, IV Infusion, ONCE, 1 dose, On 05/02/23 at 0015, [facility] famotidine (PEPCID (PF)) injection 20 mg 05-02 04:15: 00 05-02 04:21 :00 No 20mg 20 mg, Slow IV Push, ONCE, 1 dose, On Thu05/01/23 at 2315, [facility] maalox:diph enhydrAMINE :lidocaine 2 % viscous 1:1:1 ([facility]) oral suspension 15 mL 05-02 04:15: 00 05-02 04:21 :00 No 15mL 15 mL, Oral, ONCE, 1 dose, On Thu05/01/23 at 2315, [facility] ondansetron (ZOFRAN (PF)) injection 4 mg 05-02 04:15: 00 05-02 03:18 :00 No 4mg 4 mg, Slow IV Push, ONCE, 1 dose, On Thu05/01/23 at 2315, [facility] NaCl 0.9% (NS) bolus infusion 1,000 mL 05-02 04:15: 00 05-02 04:15 :00 No 1000mL at 999 mL/hr, 1,000 mL, IV Infusion, ONCE, 1 dose, On Thu05/01/23 at 2315, STAT [facility] metoclopram jerilyn HCl 10 mg tablet 05-01 00:00: 00 Yes [id number] 10mg Take 1 tablet by mouth every 6 (six) hours. [facility] pantoprazol e (PROTONIX) 20 mg EC tablet 05-01 00:00: 00 07-03 00:00 :00 No [id number] 20mg Take 1 tablet by mouth in the morning. [facility] iopamidol (ISOVUE 370-500 mL) injection 70 mL 04-22 16:21: 00 04-22 16:21 :00 No [id number] 70mL 70 mL, Intravenou s, ONCE, 1 dose, On Thu04/22/23 at 1145, Routine [facility] haloperidol lactate (HALDOL) injection 2.5 mg 04-22 16:00: 00 04-22 16:01 :00 No 2.5mg 2.5 mg, Intravenou s, ONCE, 1 dose, On Thu04/22/23 at 1100, STAT [facility] NaCl 0.9% (NS) bolus infusion 500 mL 04-22 14:45: 00 04-22 15:30 :00 No 500mL at 999 mL/hr, 500 mL, IV Infusion, ONCE, 1 dose, On Thu04/22/23 at 0945, STAT [facility] maalox:diph enhydrAMINE :lidocaine 2 % viscous 1:1:1 ([facility]) oral suspension 15 mL 04-22 13:00: 00 04-22 12:55 :00 No 15mL 15 mL, Oral, ONCE, 1 dose, On Thu04/22/23 at 0800, Routine [facility] NaCl 0.9% (NS) IV infusion 1,000 mL 04-22 12:45: 00 Yes 1000mL at 999 mL/hr, Intravenou s, CONTINUOUS , Starting on Thu04/22/23 at 0745, Until Discontinu ed, Routine [facility] NaCl 0.9% (NS) bolus infusion 1,000 mL 04-22 10:30: 00 04-22 11:30 :00 No 1000mL at 999 mL/hr, 1,000 mL, IV Infusion, ONCE, 1 dose, On Thu04/22/23 at 0530, STAT [facility] ketorolac (TORADOL) injection 30 mg 04-22 10:30: 00 04-22 09:21 :00 No 30mg 30 mg, Slow IV Push, ONCE, 1 dose, On Thu04/22/23 at 0530, Routine [facility] diphenhydrA MINE (BENADRYL) injection 25 mg 04-22 09:30: 00 04-22 09:21 :00 No 25mg 25 mg, Slow IV Push, ONCE, 1 dose, On Thu04/22/23 at 0430, STAT [facility] metoclopram jerilyn HCl (REGLAN) injection 10 mg 04-22 09:30: 00 04-22 09:21 :00 No 10mg 10 mg, Slow IV Push, ONCE, 1 dose, On Thu04/22/23 at 0430, [facility] NaCl 0.9% (NS) bolus infusion 1,000 mL 04-22 09:15: 00 04-22 10:28 :00 No 1000mL at 999 mL/hr, 1,000 mL, IV Infusion, ONCE, 1 dose, On Thu04/22/23 at 0415, STAT [facility] Tramadol HCl (ULTRAM) 50 MG oral [...] On Carrie 04/16/23 at 0915, Routine [facility] famotidine (PEPCID (PF)) injection 20 mg 04-16 13:30: 00 04-16 12:33 :00 No 20mg 20 mg, Slow IV Push, ONCE NOW, 1 dose, On Carrie 04/16/23 at 0830, [facility]ASILIY [facility] dicyclomine (BENTYL) injection 20 mg 04-16 13:30: 00 04-16 12:34 :00 No 20mg 20 mg, Intramuscu lar, ONCE NOW, 1 dose, On Carrie 04/16/23 at 0830, Routine [facility] enalaprilat (VASOTEC I.V.) injection 1.25 mg 04-16 13:15: 00 04-16 13:17 :00 No 1.25mg 1.25 mg, Slow IV Push, ONCE, 1 dose, On Carrie 04/16/23 at 0815, STAT [facility] lactulose (CEPHULAC) solution 45 mL 04-16 13:15: 00 04-16 13:18 :00 No 45mL 45 mL, Oral, ONCE, 1 dose, On Carrie 04/16/23 at 0815, [facility] ketorolac (TORADOL) injection 30 mg 04-16 13:15: 00 04-16 12:32 :00 No 30mg 30 mg, Slow IV Push, ONCE NOW, 1 dose, On Carrie 04/16/23 at 0815, [facility] NaCl 0.9% (NS) bolus infusion 1,000 mL 04-16 13:15: 00 04-16 13:54 :00 No 1000mL at 999 mL/hr, 1,000 mL, IV Piggyback, ONCE, 1 dose, On Carrie 04/16/23 at 0815, STAT [facility] lipase-prot ease-amylas e (CREON) 3,000-9,500 - 15,000 unit capsule 04-16 00:00: 00 Yes [id number] 3000U Take 1 capsule by mouth in the morning and 1 capsule at noon and 1 capsule in the evening. Take with meals. [facility] hyoscyamine sulfate (LEVSIN/SL) 0.125 mg sublingual tablet 04-16 00:00: [id number] 2 tablets under the tongue every 6 (six) hours as needed (Abdominal pain or cramping). [facility] bisacodyL 5 mg EC tablet 04-16 00:00: 00 Yes [id number] 5mg Take 1 tablet by mouth once daily as needed for Constipati on. [facility] Famotidine (PEPCID) 20 MG oral tablet 04-16 00:00: 00 10-06 00:00 :00 No 20mg Take 1 tablet (20 mg total) by mouth 2 times daily. Luz Maria rea Lorazepam 1 MG oral Tablet 04-05 00:00: 00 10-06 00:00 :00 No 1mg [id number] 3D Take 1 tablet (1 mg total) by mouth every 8 hours as needed. Luz Maria Wallace l iopamidol (ISOVUE 370-500 mL) injection 100 mL 04-01 07:45: 00 04-01 06:58 :00 No [id number] 100mL 100 mL, Intravenou s, ONCE, 1 dose, On Thu04/01/23 at 0245, Routine [facility] famotidine (PEPCID (PF)) injection 20 mg 04-01 05:45: 00 04-01 06:09 :00 No 20mg 20 mg, Slow IV Push, ONCE, 1 dose, On Thu04/01/23 at 0045, [facility] FENTanyl PF (SUBLIMAZE (PF)) injection 50 mcg 04-01 05:38: 00 04-01 06:10 :00 No 50ug 50 mcg, Slow IV Push, ONCE, 1 dose, On Thu04/01/23 at 0045, [facility] NaCl 0.9% (NS) IV infusion 1,000 mL 04-01 05:05: 00 04-01 06:30 :00 No 1000mL at 999 mL/hr, Intravenou s, ONCE, 1 dose, On Thu04/01/23 at 0015, [facility] ondansetron (ZOFRAN (PF)) injection 4 mg 04-01 05:05: 00 04-01 05:08 :00 No 4mg 4 mg, Slow IV Push, ONCE, 1 dose, On Thu04/01/23 at 0015, [facility] sodium chloride (NS) injection 5 mL 04-01 05:04: 36 Yes 5mL 5 mL, Intravenou s, PRN, Starting on Thu04/01/23 at 0004, Until Discontinu ed, Routine, IV line flushing [facility] ondansetron 4 mg disintegrat ing tablet 04-01 00:00: 00 Yes [id number] 4mg Take 1 tablet by mouth every 8 (eight) hours as needed for Nausea and Vomiting (N/V). [facility] traMADoL 50 mg tablet 04-01 00:00: 00 04-09 04:59 :00 No [id number] 50mg Take 1 tablet by mouth every 8 (eight) hours as needed for Pain (scale 4-6) for up to 7 days. Indication s: acute pain [facility] predniSONE (DELTASONE) tablet 40 mg 12-09 07:15: 00 12-09 06:33 :00 No 40mg 40 mg, Oral, ONCE, 1 dose, On Thu12/09/22 at 0215, [facility] traMADoL (ULTRAM) tablet 50 mg 12-09 07:15: 00 12-09 06:33 :00 No 50mg 50 mg, Oral, ONCE, 1 dose, On Thu12/09/22 at 0215, [facility] iopamidol (ISOVUE 370-500 mL) injection 100 mL 12-09 06:15: 12-09 06:15 :00 No [id number] 100mL 100 mL, Intravenou s, ONCE, 1 dose, On Thu12/09/22 at 0115, Routine [facility] ketorolac (TORADOL) injection 30 mg 12-09 06:15: 12-09 05:30 :00 No 30mg 30 mg, Slow IV Push, ONCE, 1 dose, On Thu12/09/22 at 0115, [facility] morpHINE (4 mg/mL) injection 4 mg 12-09 06:15: 12-09 05:30 :00 No 4mg 4 mg, Slow IV Push, ONCE, 1 dose, On Thu12/09/22 at 0115, [facility] NaCl 0.9% (NS) bolus infusion 1,000 mL 12-09 06:15: 12-09 06:33 :00 No 1000mL at 999 mL/hr, 1,000 mL, IV Infusion, ONCE, 1 dose, On Thu12/09/22 at 0115, [facility] ondansetron (ZOFRAN (PF)) injection 8 mg 12-09 05:30: 00 12-09 05:30 :00 No 8mg 8 mg, Slow IV Push, ONCE, 1 dose, On Thu12/09/22 at 0030, [facility] traMADoL 50 mg tablet 12-09 00:00: 00 Yes [id number] 50mg Take 1 tablet by mouth every 6 (six) hours as needed (pain). Indication s: acute pain [facility] ondansetron 4 mg tablet 12-09 00:00: 00 Yes [id number] 1-2 tablets every 8 hours as needed for nausea [facility] predniSONE 20 mg tablet 12-09 00:00: 00 12-17 04:59 :00 No [id number] 40mg Take 2 tablets by mouth in the morning for 7 days. [facility] iopamidol (ISOVUE 370-500 mL) injection 100 mL 11-25 06:15: 00 11-25 06:15 :00 No [id number] 100mL 100 mL, Intravenou s, ONCE, 1 dose, On Thu11/25/22 at 0115, Routine [facility] NaCl 0.9% (NS) bolus infusion 1,000 mL 11-25 06:00: 00 11-25 07:00 :00 No 1000mL at 999 mL/hr, 1,000 mL, IV Infusion, ONCE, 1 dose, On Thu11/25/22 at 0100, STAT [facility] FENTanyl PF (SUBLIMAZE (PF)) injection 50 mcg 11-25 05:45: 00 11-25 05:03 :00 No 50ug 50 mcg, Slow IV Push, ONCE, 1 dose, On Thu11/25/22 at 0045, Routine [facility] ondansetron (ZOFRAN (PF)) injection 4 mg 11-25 05:00: 00 11-25 05:04 :00 No 4mg 4 mg, Slow IV Push, ONCE, 1 dose, On Thu11/25/22 at 0000, V[facility]Y [facility] Pancrelipas e, Lip-Prot-Am yl, (Creon) 11861-[address] units [address] Particles 10-13 00:00: 00 10-06 00:00 :00 No Luz Maria Wallace l lipase-prot ease-amylas e (CREON) 12,000-38,0 00 -60,000 unit capsule 2 capsule 10-12 23:00: 00 Yes 2{capsu le} 2 capsule, Oral, TID MEALS, First dose on 10/12/22 at 1700, Until Discontinu ed, Routine [facility] lisinopriL 10 mg tablet 10-12 17:56: 15 Yes 10mg Take 10 mg by mouth in the morning. [facility] meloxicam (MOBIC) tablet 7.5 mg 10-12 17:15: 00 Yes 7.5mg 7.5 mg, Oral, DAILY, First dose on 10/12/22 at 1115, Until Discontinu ed, Routine [facility] omeprazole (PRILOSEC) capsule 20 mg 10-12 15:00: 00 Yes 20mg 20 mg, Oral, DAILY, First dose on 10/12/22 at 0900, Until Discontinu ed, Routine [facility] Pantoprazol e Sodium 40 MG oral Tablet Delayed Response 10-12 00:00: 00 10-06 00:00 :00 No Luz Maria rea lipase-prot ease-amylas e 12,000-38,0 00 -60,000 unit capsule 10-12 00:00: 00 01-11 04:59 :00 No [id number] 2{capsu le} Take 2 capsules by mouth in the morning and 2 capsules at noon and 2 capsules in the evening. Take with meals. Do all this for 90 days. Do not crush or chew. [facility] meloxicam 7.5 mg tablet 10-12 00:00: 00 10-27 05:59 :00 No [id number] 7.5mg Take 1 tablet by mouth once daily as needed for Pain (scale 7-10) for up to 14 days. [facility] HYDROcodone -acetaminop hen 5-325 mg tablet 10-12 00:00: 00 10-20 05:59 :00 No [id number] 1{tbl} Take 1 tablet by mouth every 6 (six) hours as needed for Pain (scale 4-6) for up to 7 days. Indication s: acute pain [facility] amLODIPine (NORVASC) tablet 10 mg 10-11 20:00: 00 Yes 10mg 10 mg, Oral, DAILY, First dose on 10/11/22 at 1400, Until Discontinu ed, Routine [facility] lactated ringers IV infusion 1,000 mL 10-11 20:00: 00 10-12 14:03 :28 No 1000mL at 125 mL/hr, 1,000 mL, IV Infusion, CONTINUOUS , Starting on 10/11/22 at 1400, Until 10/12/22 at 0803, Routine [facility] HYDROcodone -acetaminop hen (NORCO 5) 5-325 mg tablet 1 tablet 10-11 19:35: 19 10-13 19:34 :19 No 1{tbl} 1 tablet, Oral, Q6HPRN, Starting on 10/11/22 at 1335, Until 10/13/22 at 1334, Routine, Pain (scale 4-6) [facility] acetaminoph en (TYLENOL) tablet 650 mg 10-11 19:35: 16 Yes 650mg 650 mg, Oral, Q6HPRN, Starting on 10/11/22 at 1335, Until Discontinu ed, Routine, Pain (scale 1-3) [facility] NaCl 0.9% (NS) bolus infusion 1,000 mL 10-11 16:45: 00 10-11 16:02 :00 No 1000mL at 999 mL/hr, 1,000 mL, Intravenou s, ONCE, 1 dose, On 10/11/22 at 1045, STAT [facility] ondansetron (ZOFRAN (PF)) injection 4 mg 10-11 16:15: 00 10-11 16:15 :00 No 4mg 4 mg, Slow IV Push, ONCE, 1 dose, On 10/11/22 at 1015, [facility] morpHINE (4 mg/mL) injection 4 mg 10-11 16:15: 00 10-11 16:14 :00 No 4mg 4 mg, Slow IV Push, ONCE, 1 dose, On 10/11/22 at 1015, STAT [facility] iopamidol (ISOVUE 370-500 mL) injection 120 mL 10-11 15:45: 00 10-11 14:43 :00 No [id number] 120mL 120 mL, Intravenou s, ONCE, 1 dose, On 10/11/22 at 0945, Routine [facility] FENTanyl PF (SUBLIMAZE (PF)) injection 50 mcg 10-09 08:30: 00 10-09 07:23 :00 No 50ug 50 mcg, Slow IV Push, ONCE, 1 dose, On Carrie 10/09/22 at 0230, Routine [facility] iopamidol (ISOVUE 370-500 mL) injection 100 mL 10-09 07:15: 00 10-09 07:15 :00 No [id number] 100mL 100 mL, Intravenou s, ONCE, 1 dose, On Carrie 10/09/22 at 0115, Routine [facility] ketorolac (TORADOL) injection 30 mg 10-09 06:15: 00 10-09 05:25 :00 No 30mg 30 mg, Slow IV Push, ONCE, 1 dose, On Carrie 10/09/22 at 0015, Routine [facility] ondansetron (ZOFRAN) 4 mg tablet 10-09 00:00: 00 Yes [id number] 4mg Take 1 tablet by mouth every 8 (eight) hours as needed for Nausea and Vomiting (N/V). [facility] traMADoL (ULTRAM) 50 mg tablet 10-09 00:00: 00 Yes [id number] 50mg Take 1 tablet by mouth every 6 (six) hours as needed for Pain (scale 7-10). Indication s: acute pain [facility] ketorolac (TORADOL) injection 30 mg 2021-09 2-07 17:15: 00 08-20 16:35 :00 No 30mg 30 mg, Intramuscu lar, ONCE, 1 dose, On Thu08/20/22 at 1115, [facility] Amlodipine Besylate 10 MG oral Tablet 2021-09 00:00: 00 10-06 00:00 :00 No Luz Maria Ng - [place] rea morpHINE (4 mg/mL) injection 4 mg 06-09 13:15: 00 06-09 12:54 :00 No 4mg 4 mg, Slow IV Push, ONCE, 1 dose, On Thu06/09/22 at 0815, [facility] ketorolac (TORADOL) injection 30 mg 06-09 13:15: 00 06-09 12:55 :00 No 30mg 30 mg, Slow IV Push, ONCE, 1 dose, On Thu06/09/22 at 0815, [facility] (ISOVUE 370-500 mL) injection 60 mL 06-09 13:07: 00 06-09 13:08 :00 No [id number] 60mL 60 mL, Intravenou s, ONCE, 1 dose, On Thu06/09/22 at 0815, Routine [facility] ondansetron (ZOFRAN (PF)) injection 4 mg 06-09 12:30: 00 06-09 12:54 :00 No 4mg 4 mg, Slow IV Push, ONCE, 1 dose, On Thu06/09/22 at 0730, [facility] dexamethaso ne sod phos PF injection 10 mg 06-09 12:30: 00 06-09 12:55 :00 No 10mg 10 mg, Slow IV Push, ONCE, 1 dose, On Thu06/09/22 at 0730, 1 mL [facility] traMADoL 50 mg tablet 06-09 00:00: 00 10-11 00:00 :00 No [id number] 50mg Take 1 tablet by mouth every 6 (six) hours as needed (pain). Indication s: acute pain [facility] lidocaine 5 % (700 mg/patch) patch 06-09 00:00: 00 10-11 00:00 :00 No [id number] Apply one patch to most painful area up to 12 hours a day as needed for pain. PHARMACIST : dispense one box [facility] predniSONE 20 mg tablet 06-09 00:00: 00 06-17 04:59 :00 No [id number] 40mg Take 2 tablets by mouth in the morning for 7 days. [facility] Dose Unknown 02-03 00:00: 00 No Dose Unknown 02-03 00:00: 00 No lisinopriL (PRINIVIL,Z ESTRIL) tablet 20 mg 11-01 03:00: 00 Yes 20mg 20 mg, Oral, QHS, First dose (after last modificati on) on Thu10/31/21 at 2100, Until Discontinu ed, Routine [facility] lisinopriL 20 mg tablet 11-01 00:00: 00 12-02 04:59 :00 No [id number] 20mg Take 1 tablet by mouth at bedtime for 30 days. [facility] lactated ringers IV infusion 1,000 mL 10-31 19:00: 00 Yes 1000mL at 75 mL/hr, 1,000 mL, IV Infusion, CONTINUOUS , Starting on Thu10/31/21 at 1300, Until Discontinu ed, Routine [facility] amLODIPine (NORVASC) tablet 10 mg 10-31 15:00: 00 Yes 10mg 10 mg, Oral, DAILY, First dose on Thu10/31/21 at 0900, Until Discontinu ed, [facility]LOVENOX[facility] 40 mg 10-31 15:00: 00 Yes 40mg 40 mg, Subcutaneo us, DAILY, First dose on Thu10/31/21 at 0900, Until Discontinu ed, Routine [facility] lactated ringers IV infusion 1,000 mL 10-31 07:00: 00 10-31 18:45 :24 No 1000mL at 150 mL/hr, 1,000 mL, IV Infusion, CONTINUOUS , Starting on Thu10/31/21 at 0100, Until Thu10/31/21 at 1245, Routine [facility] lactated ringers IV infusion 1,000 mL 10-31 01:00: 00 10-31 06:52 :16 No 1000mL at 75 mL/hr, 1,000 mL, IV Infusion, CONTINUOUS , Starting on Thu10/30/21 at 1900, Until Thu10/31/21 at 0052, Routine [facility] morpHINE injection 4 mg 10-31 00:43: 35 11-01 00:42 :35 No 4mg 4 mg, Slow IV Push, Q4HPRN, Starting on Thu10/30/21 at 1843, Until Thu10/31/21 at 1842, Routine, Pain (scale 7-10) [facility] HYDROcodone -acetaminop hen (NORCO 5) 5-325 mg tablet 1 tablet 10-31 00:43: 32 11-02 00:42 :32 No 1{tbl} 1 tablet, Oral, Q6HPRN, Starting on Thu10/30/21 at 1843, Until Thu11/01/21 at 1842, Routine, Pain (scale 4-6) [facility] acetaminoph en (TYLENOL) tablet 650 mg 10-31 00:43: 22 Yes 650mg 650 mg, Oral, Q6HPRN, Starting on Thu10/30/21 at 1843, Until Discontinu ed, Routine, Pain (scale 1-3) [facility] ondansetron (ZOFRAN (PF)) injection 4 mg 10-30 21:15: 00 10-30 20:28 :00 No 4mg 4 mg, Slow IV Push, ONCE, 1 dose, On Thu10/30/21 at 1515, [facility]ILIY [facility] morpHINE injection 4 mg 10-30 21:15: 00 10-30 20:29 :00 No 4mg 4 mg, Slow IV Push, ONCE, 1 dose, On Thu10/30/21 at 1515, STAT [facility] NaCl 0.9% (NS) bolus infusion 1,000 mL 10-30 21:15: 00 10-30 20:29 :00 No 1000mL at 999 mL/hr, 1,000 mL, IV Infusion, ONCE, 1 dose, On Thu10/30/21 at 1515, [facility]Y [facility] iopamidol (ISOVUE 370-500 mL) injection 100 mL 10-30 20:37: 00 10-30 20:35 :00 No [id number] 100mL 100 mL, Intravenou s, ONCE, 1 dose, On Thu10/30/21 at 1445, Routine [facility] lisinopril 10 mg tablet 2-03 00:00: 00 No 1mg amlodipine 10 mg tablet 2-03 00:00: 00 No 1mg lisinopril 10 mg tablet 2020-09 0-13 00:00: 00 No 1mg amlodipine 10 mg tablet 1 0-13 00:00: 00 No 1mg NaCl 0.9% (NS) bolus infusion 1,000 mL 10 03:45: 00 05-24 05:00 :00 No 1000mL at 999 mL/hr, 1,000 mL, IV Piggyback, ONCE, 1 dose, Carrie 05/23/21 at 2245, STAT [facility] NaCl 0.9% (NS) bolus infusion 1,000 mL 0 10 03:00: 00 05-24 03:00 :00 No 1000mL at 999 mL/hr, 1,000 mL, IV Piggyback, ONCE, 1 dose, Carrie 05/23/21 at 2200, STAT [facility] NaCl 0.9% (NS) bolus infusion 500 mL 05-23 03:15: 00 05-23 15:14 :00 No 500mL at 999 mL/hr, 500 mL, IV Piggyback, ONCE, 1 dose, 05/22/21 at 2215, STAT [facility] dexamethaso ne (DECADRON PHOSPHATE) injection 10 mg 04-02 03:30: 00 04-02 02:47 :00 No 10mg 10 mg, Intramuscu lar, ONCE, 1 dose, 04/01/21 at 2230, STAT [facility] ketorolac (TORADOL) injection 60 mg 03-18 04:00: 00 03-18 02:56 :00 No 60mg 60 mg, Intramuscu lar, ONCE, 1 dose, 03/17/21 at 2300, VASILIY
Fa culty member approving Restricted medication : EMERGENCY ROOM, [facility] ibuprofen 800 mg tablet 03-17 00:00: 00 05-23 00:00 :00 No [id number] 800mg Take 1 tablet by mouth every 8 (eight) hours as needed for Pain (scale 4-6). [facility] acetaminoph en-codeine 300-30 mg tablet 03-17 00:00: 00 03-25 04:59 :00 No [id number] 1{tbl} Take 1 tablet by mouth every 6 (six) hours as needed for Pain (scale 7-10) for up to 7 days. Indication s: acute pain [facility] benzonatate (TESSALON PERLES) capsule 200 mg 11-15 05:00: 00 11-15 04:51 :00 No 200mg 200 mg, Oral, ONCE, 1 dose, Thu11/14/20 at 2300, Routine [facility] Dose Unknown 11-14 00:00: 00 No Dose Unknown 11-14 00:00: 00 No benzonatate 100 mg capsule - 00:00: 00 05-23 00:00 :00 No [id number] 100mg Take 1 capsule by mouth 3 (three) times daily as needed for Cough. [facility] diphenhydrA MINE (BENADRYL) injection 25 mg 09-30 16:00: 00 09-30 15:17 :00 No 25mg 25 mg, Slow IV Push, ONCE, 1 dose, 09/30/20 at 1000, STAT [facility] metoclopram jerilyn HCl (REGLAN) injection 10 mg 09-30 16:00: 00 09-30 15:17 :00 No 10mg 10 mg, Slow IV Push, ONCE, 1 dose, 09/30/20 at 1000[facility] 0.9% (NS) bolus infusion 1,000 mL 09-30 15:00: 00 09-30 16:45 :00 No 1000mL at 999 mL/hr, 1,000 mL, IV Infusion, ONCE, 1 dose, 09/30/20 at 0900, [facility] amLODIPine (NORVASC) 10 mg tablet 09-30 00:00: 00 Yes [id number] 10mg Take 1 tablet by mouth daily. [facility] lisinopriL 10 mg tablet 09-30 00:00: 00 11-01 00:00 :00 No [id number] 10mg Take 1 tablet by mouth at bedtime. [facility] Dose Unknown 2019-09 00:00: 00 No Dose Unknown 2019-09 0 00:00: 00 No maalox:diph enhydrAMINE :lidocaine 2 % viscous 1:1:1 (FIRST-MOUT HWASH BLM) oral suspension 15 mL 2019-09 03:30: 00 07-02 03:30 :00 No 15mL 15 mL, Oral, ONCE, 1 dose, 07/01/20 at 2230, [facility] sodium chloride (NS) injection 5 mL 2019-09 03:00: 48 Yes 5mL 5 mL, Intravenou s, PRN, Starting 07/01/20 at 2200, Until Discontinu ed, Routine, IV line flushing [facility] sucralfate 1 gram tablet 2019-09 00:00: 00 07-16 05:59 :00 No [id number] 1g Take 1 tablet by mouth before meals and at bedtime for 14 days. [facility] lisinopril 10 mg tablet 04-12 00:00: 00 No 1mg amlodipine 10 mg tablet 04-12 00:00: 00 No 1mg No known medications No Un [facility] Immunizations Ordered Immunization Name Filled Immunization Name Date Status Comments Source SARS-COV-2 COVID-19 PFIZER VACCINE 2021-05-07 00:00:00 Completed [facility] SARS-COV-2 COVID-19 PFIZER VACCINE 2021-05-07 00:00:00 Completed [facility] SARS-COV-2 COVID-19 PFIZER VACCINE 2021-05-07 00:00:00 Completed [facility] SARS-COV-2 COVID-19 PFIZER VACCINE 2021-05-07 00:00:00 Completed [facility] SARS-COV-2 COVID-19 PFIZER VACCINE 2021-05-07 00:00:00 Completed [facility] SARS-COV-2 COVID-19 PFIZER VACCINE 2021-05-07 00:00:00 Completed [facility] SARS-COV-2 COVID-19 PFIZER VACCINE 2021-05-07 00:00:00 Completed [facility] SARS-COV-2 COVID-19 PFIZER VACCINE 2021-05-07 00:00:00 Completed [facility] SARS-COV-2 COVID-19 PFIZER VACCINE 2021-05-07 00:00:00 Completed [facility] SARS-COV-2 COVID-19 PFIZER VACCINE 2021-05-07 00:00:00 Completed [facility] SARS-COV-2 COVID-19 PFIZER VACCINE 2021-05-07 00:00:00 Completed [facility] SARS-COV-2 COVID-19 PFIZER VACCINE 2021-05-07 00:00:00 Completed [facility] SARS-COV-2 COVID-19 PFIZER VACCINE 2021-05-07 00:00:00 Completed [facility] SARS-COV-2 COVID-19 PFIZER VACCINE 2021-05-07 00:00:00 Completed [facility] SARS-COV-2 COVID-19 PFIZER VACCINE 2021-05-07 00:00:00 Completed [facility] SARS-COV-2 COVID-19 PFIZER VACCINE 2021-05-07 00:00:00 Completed [facility] SARS-COV-2 COVID-19 PFIZER VACCINE 2021-05-07 00:00:00 Completed [facility] SARS-COV-2 COVID-19 PFIZER VACCINE 2021-05-07 00:00:00 Completed [facility] SARS-COV-2 COVID-19 PFIZER VACCINE 2021-05-07 00:00:00 Completed [facility] SARS-COV-2 COVID-19 PFIZER VACCINE 2021-05-07 00:00:00 Completed [facility] SARS-COV-2 COVID-19 PFIZER VACCINE 2021-05-07 00:00:00 Completed [facility] SARS-COV-2 COVID-19 PFIZER VACCINE 2021-05-07 00:00:00 Completed [facility] SARS-COV-2 COVID-19 PFIZER VACCINE Unknown Completed [facility] SARS-COV-2 COVID-19 PFIZER VACCINE Unknown Completed [facility] SARS-COV-2 COVID-19 PFIZER VACCINE Unknown Completed [facility] SARS-COV-2 COVID-19 PFIZER VACCINE Unknown Completed [facility] SARS-COV-2 COVID-19 PFIZER VACCINE Unknown Completed [facility] SARS-COV-2 COVID-19 PFIZER VACCINE Unknown Completed [facility] SARS-COV-2 COVID-19 PFIZER VACCINE Unknown Completed [facility] SARS-COV-2 COVID-19 PFIZER VACCINE Unknown Completed [facility] SARS-COV-2 COVID-19 PFIZER VACCINE Unknown Completed [facility] SARS-COV-2 COVID-19 PFIZER VACCINE Unknown Completed [facility] SARS-COV-2 COVID-19 PFIZER VACCINE Unknown Completed [facility] SARS-COV-2 COVID-19 PFIZER VACCINE Unknown Completed [facility] SARS-COV-2 COVID-19 PFIZER VACCINE Unknown Completed [facility] SARS-COV-2 COVID-19 PFIZER VACCINE Unknown Completed [facility] SARS-COV-2 COVID-19 PFIZER VACCINE Unknown Completed [facility] SARS-COV-2 COVID-19 PFIZER VACCINE Unknown Completed [facility] SARS-COV-2 COVID-19 PFIZER VACCINE Unknown Completed [facility] SARS-COV-2 COVID-19 PFIZER VACCINE Unknown Completed [facility] SARS-COV-2 COVID-19 PFIZER VACCINE Unknown Completed [facility] SARS-COV-2 COVID-19 PFIZER VACCINE Unknown Completed [facility] SARS-COV-2 COVID-19 PFIZER VACCINE Unknown Completed [facility] Vital Signs Vital Name Observation Time Observation Value Comments S ource Heart rate 2024-06-08 00:59:00 80 /min [facility] Respiratory rate 2024-06-08 00:59:00 15 /min [facility] Oxygen saturation in Arterial blood by Pulse oximetry 2024-06-08 00:59:00 97 /min [facility] Systolic blood pressure 2024-06-08 00:30:00 149 mm[Hg] [facility] Diastolic blood pressure 2024-06-08 00:30:00 98 mm[Hg] [facility] Body temperature 2024-06-07 21:55:00 36.5 Cindi [facility] Body height 2024-06-07 21:55:00 195.6 cm [facility] acute hospital Body weight 2024-06-07 21:55:00 121.11 kg [facility] acute hospital BMI 2024-06-07 21:55:00 31.66 kg/m2 [facility] hospital Systolic blood pressure 2024-04-08 21:13:00 143 mm[Hg] Luz Maria ybo ld - External Diastolic blood pressure 2024-04-08 21:13:00 87 mm[Hg] Luz Maria Seybo ld - External Heart rate 2024-04-08 21:13:00 79 [...] oximetry 2024-04-08 21:13:00 100 /min Luz Maria ybo ld - External Systolic blood pressure 2024-04-02 17:52:00 140 mm[Hg] [facility] Diastolic blood pressure 2024-04-02 17:52:00 93 mm[Hg] [facility] Heart rate 2024-04-02 17:52:00 80 /min [facility] Body temperature 2024-04-02 17:52:00 37 Cindi [facility] Respiratory rate 2024-04-02 17:52:00 20 /min [facility] Oxygen saturation in Arterial blood by Pulse oximetry 2024-04-02 17:52:00 98 /min [facility] Body height 2024-04-02 13:32:00 195.6 cm [facility] acute hospital Body weight 2024-04-02 13:32:00 120.3 kg [facility] acute hospital BMI 2024-04-02 13:32:00 31.45 kg/m2 General acute hospital Systolic blood pressure 2024-03-30 13:10:00 119 mm[Hg] [...] oximetry 2024-03-30 13:10:00 100 /min Luz Maria Seybo ld - External Systolic blood pressure 2024-02-21 04:48:00 132 mm[Hg] [facility] Diastolic blood pressure 2024-02-21 04:48:00 82 mm[Hg] [facility] Heart rate 2024-02-21 04:48:00 74 /min [facility] Body temperature 2024-02-21 04:48:00 36.72 Cindi [facility] Respiratory rate 2024-02-21 04:48:00 15 /min [facility] Oxygen saturation in Arterial blood by Pulse oximetry 2024-02-21 04:48:00 98 /min [facility] Body height 2024-02-21 02:43:00 195.6 cm [facility] acute hospital Body weight 2024-02-21 02:43:00 115.667 kg General acute hospital BMI 2024-02-21 02:43:00 30.24 kg/m2 General acute hospital Systolic blood pressure 2023-12-17 20:32:00 112 mm[Hg] Luz Maria Seybo ld - External Diastolic blood pressure 2023-12-17 20:32:00 80 mm[Hg] Luz Maria Seybo ld - External Heart rate 2023-12-17 20:07:00 96 /min Kel y Seybold - External Body temperature 2023-12-17 20:07:00 36.44 Cindi Luz Maria Ingramybold - External Respiratory rate 2023-12-17 20:07:00 15 [...] Systolic blood pressure 2023-12-10 03:57:00 157 mm[Hg] [facility] Diastolic blood pressure 2023-12-10 03:57:00 83 mm[Hg] [facility] Heart rate 2023-12-10 03:57:00 70 /min Unive [facility] Respiratory rate 2023-12-10 03:57:00 16 /min [facility] Oxygen saturation in Arterial blood by Pulse oximetry 2023-12-10 03:57:00 99 /min [facility] Body temperature 2023-12-10 01:12:00 36.83 Cindi [facility] Body height 2023-12-10 01:12:00 195.6 cm [facility] 2023-12-10 01:12:00 122.471 kg General acute hospital BMI 2023-12-10 01:12:00 32.02 kg/m2 General acute hospital Systolic blood pressure 2023-10-06 20:55:00 130 mm[Hg] [...] Systolic blood pressure 2023-08-04 05:38:00 164 mm[Hg] [facility] Diastolic blood pressure 2023-08-04 05:38:00 99 mm[Hg] [facility] Heart rate 2023-08-04 05:38:00 70 /min [facility] Body temperature 2023-08-04 05:38:00 37 Cindi [facility] Respiratory rate 2023-08-04 05:38:00 18 /min [facility] Oxygen saturation in Arterial blood by Pulse oximetry 2023-08-04 05:38:00 98 /min [facility] Body height 2023-08-04 02:22:00 195.6 cm General acute hospital Body weight 2023-08-04 02:22:00 118.389 kg Univ [facility] BMI 2023-08-04 02:22:00 30.95 kg/m2 [facility] Systolic blood pressure 2023-07-25 18:00:00 146 mm[Hg] [facility] Diastolic blood pressure 2023-07-25 18:00:00 90 mm[Hg] [facility] Heart rate 2023-07-25 18:00:00 75 /min [facility] Respiratory rate 2023-07-25 18:00:00 18 /min [facility] Oxygen saturation in Arterial blood by Pulse oximetry 2023-07-25 18:00:00 95 /min [facility] Body temperature 2023-07-25 15:57:00 37.61 Cindi [facility] Body height 2023-07-25 15:57:00 195.6 cm [facility] acute hospital Body weight 2023-07-25 15:57:00 118.842 kg General acute hospital BMI 2023-07-25 15:57:00 31.07 kg/m2 General acute hospital Systolic blood pressure 2023-07-24 21:05:00 140 mm[Hg] [facility] Diastolic blood pressure 2023-07-24 21:05:00 94 mm[Hg] [facility] Heart rate 2023-07-24 21:05:00 71 /min [facility] Body temperature 2023-07-24 21:05:00 36.67 Cindi [facility] Respiratory rate 2023-07-24 21:05:00 18 /min [facility] Oxygen saturation in Arterial blood by Pulse oximetry 2023-07-24 21:05:00 97 /min [facility] Body weight 2023-07-24 18:35:00 115.667 kg General acute hospital BMI 2023-07-24 18:35:00 30.24 kg/m2 General acute hospital Systolic blood pressure 2023-07-12 03:30:00 156 mm[Hg] [facility] Diastolic blood pressure 2023-07-12 03:30:00 101 mm[Hg] [facility] Heart rate 2023-07-12 03:30:00 90 /min [facility] Respiratory rate 2023-07-12 03:30:00 20 /min [facility] Oxygen saturation in Arterial blood by Pulse oximetry 2023-07-12 03:30:00 94 /min [facility] Body temperature 2023-07-12 01:57:00 36.67 Cindi [facility] Body weight 2023-07-12 01:57:00 115.667 kg General acute hospital BMI 2023-07-12 01:57:00 30.24 kg/m2 General acute hospital Systolic blood pressure 2023-07-10 13:34:00 140 mm[Hg] [facility] Diastolic blood pressure 2023-07-10 13:34:00 95 mm[Hg] [facility] Heart rate 2023-07-10 13:34:00 76 /min [facility] Body temperature 2023-07-10 13:34:00 35.94 Cindi [facility] Body height 2023-07-10 13:34:00 195.6 cm [facility] acute hospital Body weight 2023-07-10 13:34:00 118.298 kg General acute hospital BMI 2023-07-10 13:34:00 30.93 kg/m2 General acute hospital Oxygen saturation in Arterial blood by Pulse oximetry 2023-07-10 13:34:00 97 /min [facility] Systolic blood pressure 2023-07-08 13:43:00 140 mm[Hg] Luz Maria Saucedo ld - External Diastolic blood pressure 2023-07-08 [...] Systolic blood pressure 2023-07-03 12:45:10 149 mm[Hg] [facility] Diastolic blood pressure 2023-07-03 12:45:10 88 mm[Hg] [facility] Heart rate 2023-07-03 12:45:10 88 /min [facility] Respiratory rate 2023-07-03 12:45:10 16 /min [facility] Oxygen saturation in Arterial blood by Pulse oximetry 2023-07-03 12:45:10 97 /min [facility] Body temperature 2023-07-03 09:47:00 36.78 Cindi [facility] Body height 2023-07-03 09:47:00 195.6 cm General [...] Systolic blood pressure 2023-05-08 03:30:00 133 mm[Hg] [facility] Diastolic blood pressure 2023-05-08 03:30:00 87 mm[Hg] [facility] Heart rate 2023-05-08 03:30:00 70 /min [facility] Respiratory rate 2023-05-08 03:30:00 18 /min [facility] Oxygen saturation in Arterial blood by Pulse oximetry 2023-05-08 03:30:00 97 /min [facility] Body temperature 2023-05-07 22:36:00 36.72 Cindi [facility] Body weight 2023-05-07 22:36:00 113.853 kg General acute hospital BMI 2023-05-07 22:36:00 30.55 kg/m2 General acute hospital Systolic blood pressure 2023-05-02 05:00:00 134 mm[Hg] [facility] Diastolic blood pressure 2023-05-02 05:00:00 85 mm[Hg] [facility] Heart rate 2023-05-02 05:00:00 72 /min [facility] Oxygen saturation in Arterial blood by Pulse oximetry 2023-05-02 05:00:00 98 /min [facility] Body temperature 2023-05-02 02:28:00 37.28 Cindi [facility] Respiratory rate 2023-05-02 02:28:00 20 /min [facility] Body height 2023-05-02 02:28:00 193 cm [facility] acute hospital Body weight 2023-05-02 02:28:00 113.399 kg General acute hospital BMI 2023-05-02 02:28:00 30.43 kg/m2 General acute hospital Systolic blood pressure 2023-04-22 18:02:36 130 mm[Hg] [facility] Diastolic blood pressure 2023-04-22 18:02:36 80 mm[Hg] [facility] Heart rate 2023-04-22 18:02:36 68 /min [facility] Body temperature 2023-04-22 18:02:36 36.78 Cindi [facility] Respiratory rate 2023-04-22 18:02:36 17 /min [facility] Oxygen saturation in Arterial blood by Pulse oximetry 2023-04-22 18:02:36 96 /min [facility] Body height 2023-04-22 08:58:00 195.6 cm [facility] acute hospital Body weight 2023-04-22 08:58:00 113.944 kg General acute hospital BMI 2023-04-22 08:58:00 29.79 kg/m2 General acute hospital Systolic blood pressure 2023-04-16 13:30:00 142 mm[Hg] [facility] Diastolic blood pressure 2023-04-16 13:30:00 98 mm[Hg] [facility] Heart rate 2023-04-16 13:30:00 65 /min [facility] Respiratory rate 2023-04-16 13:30:00 17 /min [facility] Oxygen saturation in Arterial blood by Pulse oximetry 2023-04-16 13:30:00 98 /min [facility] Systolic blood pressure 2023-04-16 12:32:00 155 mm[Hg] [facility] Diastolic blood pressure 2023-04-16 12:32:00 108 mm[Hg] [facility] Heart rate 2023-04-16 12:32:00 61 /min [facility] Respiratory rate 2023-04-16 12:32:00 18 /min [facility] Oxygen saturation in Arterial blood by Pulse oximetry 2023-04-16 12:32:00 97 /min [facility] Body temperature 2023-04-16 12:09:00 36.72 Cindi [facility] Body weight 2023-04-16 12:09:00 118.842 kg General acute hospital BMI 2023-04-16 12:09:00 31.89 kg/m2 General acute hospital Systolic blood pressure 2023-04-01 08:00:00 130 mm[Hg] [facility] Diastolic blood pressure 2023-04-01 08:00:00 75 mm[Hg] [facility] Heart rate 2023-04-01 08:00:00 75 /min Un[facility] Respiratory rate 2023-04-01 08:00:00 19 /min [facility] Oxygen saturation in Arterial blood by Pulse oximetry 2023-04-01 08:00:00 96 /min [facility] Body temperature 2023-04-01 05:02:00 36.28 Cindi [facility] Body height 2023-04-01 05:02:00 193 cm [facility] acute hospital Body weight 2023-04-01 05:02:00 111.585 kg General acute hospital BMI 2023-04-01 05:02:00 29.94 kg/m2 General acute hospital Systolic blood pressure 2023-02-13 21:00:00 157 mm[Hg] [facility] Diastolic blood pressure 2023-02-13 21:00:00 89 mm[Hg] [facility] Heart rate 2023-02-13 21:00:00 102 /min Un[facility] Body temperature 2023-02-13 21:00:00 37.89 Cindi [facility] Respiratory rate 2023-02-13 21:00:00 16 /min [facility] Body weight 2023-02-13 21:00:00 124.286 kg General acute hospital BMI 2023-02-13 21:00:00 33.35 kg/m2 General acute hospital Oxygen saturation in Arterial blood by Pulse oximetry 2023-02-13 21:00:00 97 /min [facility] Systolic blood pressure 2022-12-09 06:33:00 152 mm[Hg] [facility] Diastolic blood pressure 2022-12-09 06:33:00 96 mm[Hg] [facility] Heart rate 2022-12-09 06:33:00 60 /min Unive [facility] Respiratory rate 2022-12-09 06:33:00 11 /min [facility] Oxygen saturation in Arterial blood by Pulse oximetry 2022-12-09 06:33:00 96 /min [facility] Body temperature 2022-12-09 04:51:00 37 Cindi [facility] Body height 2022-12-09 04:51:00 193 cm General acute hospital Body weight 2022-12-09 04:51:00 116.121 kg General acute hospital BMI 2022-12-09 04:51:00 31.16 kg/m2 General acute hospital Systolic blood pressure 2022-11-25 04:51:00 148 mm[Hg] [facility] Diastolic blood pressure 2022-11-25 04:51:00 96 mm[Hg] [facility] Heart rate 2022-11-25 04:51:00 71 /min Un[facility] Body temperature 2022-11-25 04:51:00 37 Cindi [facility] Respiratory rate 2022-11-25 04:51:00 16 /min [facility] Body height 2022-11-25 04:51:00 193 cm General acute hospital Body weight 2022-11-25 04:51:00 113.399 kg General acute hospital BMI 2022-11-25 04:51:00 30.43 kg/m2 General acute hospital Oxygen saturation in Arterial blood by Pulse oximetry 2022-11-25 04:51:00 97 /min [facility] Systolic blood pressure 2022-10-12 21:48:00 152 mm[Hg] [facility] Diastolic blood pressure 2022-10-12 21:48:00 82 mm[Hg] [facility] Heart rate 2022-10-12 21:48:00 70 [facility] Body temperature 2022-10-12 21:48:00 36.89 Cindi [facility] Respiratory rate 2022-10-12 21:48:00 18 /min [facility] Oxygen saturation in Arterial blood by Pulse oximetry 2022-10-12 21:48:00 94 /min [facility] Body height 2022-10-11 17:50:00 193 cm Univ [facility] Body weight 2022-10-11 17:50:00 113.399 kg Univ [facility] BMI 2022-10-11 17:50:00 30.43 kg/m2 General acute hospital Systolic blood pressure 2022-10-09 07:25:23 138 mm[Hg] [facility] Diastolic blood pressure 2022-10-09 07:25:23 86 mm[Hg] [facility] Heart rate 2022-10-09 07:25:23 73 /min [facility] Respiratory rate 2022-10-09 07:25:23 20 /min [facility] Oxygen saturation in Arterial blood by Pulse oximetry 2022-10-09 07:25:23 98 /min [facility] Body temperature 2022-10-09 04:12:00 37.28 Cindi [facility] Body height 2022-10-09 04:12:00 193 cm [facility] acute hospital Body weight 2022-10-09 04:12:00 113.399 kg General acute hospital BMI 2022-10-09 04:12:00 30.43 kg/m2 General acute hospital Systolic blood pressure 2022-08-20 14:40:00 147 mm[Hg] [facility] Diastolic blood pressure 2022-08-20 14:40:00 95 mm[Hg] [facility] Heart rate 2022-08-20 14:40:00 75 /min Unive [facility] Body temperature 2022-08-20 14:40:00 36.89 Cindi [facility] Respiratory rate 2022-08-20 14:40:00 20 /min [facility] Body height 2022-08-20 14:40:00 190.5 cm General acute hospital Body weight 2022-08-20 14:40:00 115.667 kg General acute hospital BMI 2022-08-20 14:40:00 31.87 kg/m2 General acute hospital Oxygen saturation in Arterial blood by Pulse oximetry 2022-08-20 14:40:00 98 /min [facility] height 2022-07-11 09:30:00 77 [in_i] Commo n [facility] weight 2022-07-11 09:30:00 253.6 [lb_av] Co mmon [facility] temperature 2022-07-11 09:30:00 98.3 [degF] Com mon [facility] bmi 2022-07-11 09:30:00 30.07 kg/m2 Comm on [facility] oximetry 2022-07-11 09:30:00 99 % Commo n [facility] respiratory rate 2022-07-11 09:30:00 18 /min Common [facility] blood pressure systolic 2022-07-11 09:30:00 135 mm[Hg] [facility] blood pressure diastolic 2022-07-11 09:30:00 81 mm[Hg] [facility] Systolic blood pressure 2022-06-09 15:00:00 141 mm[Hg] [facility] Diastolic blood pressure 2022-06-09 15:00:00 94 mm[Hg] [facility] Heart rate 2022-06-09 15:00:00 59 /min [facility] Respiratory rate 2022-06-09 15:00:00 16 /min [facility] Oxygen saturation in Arterial blood by Pulse oximetry 2022-06-09 15:00:00 97 /min [facility] Body temperature 2022-06-09 11:56:00 36.17 Cindi [facility] Body height 2022-06-09 11:56:00 195.6 cm General acute hospital Body weight 2022-06-09 11:56:00 127.007 kg General acute hospital BMI 2022-06-09 11:56:00 33.20 kg/m2 General acute hospital Systolic blood pressure 2021-11-01 17:12:00 152 mm[Hg] [facility] Diastolic blood pressure 2021-11-01 17:12:00 89 mm[Hg] [facility] Heart rate 2021-11-01 17:12:00 72 /min Unive [facility] Body temperature 2021-11-01 17:12:00 36.17 Cindi [facility] Respiratory rate 2021-11-01 17:12:00 18 /min [facility] Oxygen saturation in Arterial blood by Pulse oximetry 2021-11-01 17:12:00 94 /min [facility] Body height 2021-10-30 23:19:00 195.6 cm General acute hospital Body weight 2021-10-30 23:19:00 116.983 kg General acute hospital BMI 2021-10-30 23:19:00 30.58 kg/m2 General acute hospital Systolic blood pressure 2021-05-24 06:00:00 135 mm[Hg] [facility] Diastolic blood pressure 2021-05-24 06:00:00 97 mm[Hg] [facility] Heart rate 2021-05-24 06:00:00 88 /min Un[facility] Respiratory rate 2021-05-24 06:00:00 21 /min [facility] Oxygen saturation in Arterial blood by Pulse oximetry 2021-05-24 06:00:00 94 /min [facility] Body temperature 2021-05-24 01:47:00 37.28 Cindi [facility] Body height 2021-05-24 01:47:00 195.6 cm General acute hospital Body weight 2021-05-24 01:47:00 127.461 kg General acute hospital BMI 2021-05-24 01:47:00 33.32 kg/m2 General acute hospital Systolic blood pressure 2021-05-22 23:36:00 154 mm[Hg] [facility] Diastolic blood pressure 2021-05-22 23:36:00 112 mm[Hg] [facility] Heart rate 2021-05-22 23:36:00 97 /min Unive [facility] Body temperature 2021-05-22 23:36:00 36 Cindi [facility] Respiratory rate 2021-05-22 23:36:00 19 /min [facility] Body height 2021-05-22 23:36:00 195.6 cm General acute hospital Body weight 2021-05-22 23:36:00 127.007 kg [facility] BMI 2021-05-22 23:36:00 33.20 kg/m2 [facility] Oxygen saturation in Arterial blood by Pulse oximetry 2021-05-22 23:36:00 96 /min [facility] Systolic blood pressure 2021-05-02 00:01:00 157 mm[Hg] [facility] Diastolic blood pressure 2021-05-02 00:01:00 93 mm[Hg] [facility] Heart rate 2021-05-02 00:01:00 84 /min Unive [facility] Body temperature 2021-05-02 00:01:00 36.56 Cindi [facility] Respiratory rate 2021-05-02 00:01:00 18 /min [facility] Body weight 2021-05-02 00:01:00 126.554 kg General acute hospital BMI 2021-05-02 00:01:00 33.08 kg/m2 General acute hospital Oxygen saturation in Arterial blood by Pulse oximetry 2021-05-02 00:01:00 97 /min [facility] Systolic blood pressure 2021-04-02 01:01:00 144 mm[Hg] [facility] Diastolic blood pressure 2021-04-02 01:01:00 94 mm[Hg] [facility] Heart rate 2021-04-02 01:01:00 89 /min Un[facility] Body temperature 2021-04-02 01:01:00 37.06 Cindi [facility] Respiratory rate 2021-04-02 01:01:00 18 /min [facility] Body weight 2021-04-02 01:01:00 129.729 kg General acute hospital BMI 2021-04-02 01:01:00 33.91 kg/m2 General acute hospital Oxygen saturation in Arterial blood by Pulse oximetry 2021-04-02 01:01:00 100 /min [facility] Systolic blood pressure 2021-04-02 01:01:00 144 mm[Hg] [facility] Diastolic blood pressure 2021-04-02 01:01:00 94 mm[Hg] [facility] Heart rate 2021-04-02 01:01:00 89 /min [facility] Body temperature 2021-04-02 01:01:00 37.06 Cindi [facility] Respiratory rate 2021-04-02 01:01:00 18 /min [facility] Body weight 2021-04-02 01:01:00 129.729 kg General acute hospital BMI 2021-04-02 01:01:00 33.91 kg/m2 General acute hospital Oxygen saturation in Arterial blood by Pulse oximetry 2021-04-02 01:01:00 100 /min [facility] Systolic blood pressure 2021-03-18 03:16:13 140 mm[Hg] [facility] Diastolic blood pressure 2021-03-18 03:16:13 80 mm[Hg] [facility] Heart rate 2021-03-18 03:16:13 80 /min [facility] Body temperature 2021-03-18 03:16:13 36.67 Cindi [facility] Respiratory rate 2021-03-18 03:16:13 19 /min [facility] Oxygen saturation in Arterial blood by Pulse oximetry 2021-03-18 03:16:13 99 /min [facility] Body weight 2021-03-18 01:02:00 129.729 kg General acute hospital BMI 2021-03-18 01:02:00 33.91 kg/m2 General acute hospital Systolic blood pressure 2021-03-18 03:16:13 140 mm[Hg] [facility] Diastolic blood pressure 2021-03-18 03:16:13 80 mm[Hg] [facility] Heart rate 2021-03-18 03:16:13 80 /min [facility] Body temperature 2021-03-18 03:16:13 36.67 Cindi [facility] Respiratory rate 2021-03-18 03:16:13 19 /min [facility] Oxygen saturation in Arterial blood by Pulse oximetry 2021-03-18 03:16:13 99 /min [facility] Body weight 2021-03-18 01:02:00 129.729 kg General acute hospital BMI 2021-03-18 01:02:00 33.91 kg/m2 [facility] Oxygen saturation in Arterial blood by Pulse oximetry 2020-11-15 04:31:00 97 /min [facility] Systolic blood pressure 2020-11-15 03:25:00 173 mm[Hg] [facility] Diastolic blood pressure 2020-11-15 03:25:00 97 mm[Hg] [facility] Heart rate 2020-11-15 03:25:00 84 /min Un[facility] Body temperature 2020-11-15 03:25:00 36.67 Cindi [facility] Respiratory rate 2020-11-15 03:25:00 20 /min [facility] Body weight 2020-11-15 03:25:00 132.45 kg [facility] BMI 2020-11-15 03:25:00 34.63 kg/m2 General acute hospital Oxygen saturation in Arterial blood by Pulse oximetry 2020-11-15 04:31:00 97 /min [facility] Systolic blood pressure 2020-11-15 03:25:00 173 mm[Hg] [facility] Diastolic blood pressure 2020-11-15 03:25:00 97 mm[Hg] [facility] Heart rate 2020-11-15 03:25:00 84 /min [facility] Body temperature 2020-11-15 03:25:00 36.67 Cindi [facility] Respiratory rate 2020-11-15 03:25:00 20 /min [facility] Body weight 2020-11-15 03:25:00 132.45 kg [facility] BMI 2020-11-15 03:25:00 34.63 kg/m2 [facility] Systolic blood pressure 2020-09-30 16:30:00 121 mm[Hg] [facility] Diastolic blood pressure 2020-09-30 16:30:00 66 mm[Hg] [facility] Heart rate 2020-09-30 16:30:00 72 /min [facility] Respiratory rate 2020-09-30 16:30:00 19 /min [facility] Oxygen saturation in Arterial blood by Pulse oximetry 2020-09-30 16:30:00 94 /min [facility] Body weight 2020-09-30 14:20:00 136.079 kg General acute hospital BMI 2020-09-30 14:20:00 35.57 kg/m2 General acute hospital Body temperature 2020-09-30 14:10:00 37.06 Cindi [facility] Systolic blood pressure 2020-09-30 16:30:00 121 mm[Hg] [facility] Diastolic blood pressure 2020-09-30 16:30:00 66 mm[Hg] [facility] Heart rate 2020-09-30 16:30:00 72 /min [facility] Respiratory rate 2020-09-30 16:30:00 19 /min [facility] Oxygen saturation in Arterial blood by Pulse oximetry 2020-09-30 16:30:00 94 /min [facility] Body weight 2020-09-30 14:20:00 136.079 kg General acute hospital BMI 2020-09-30 14:20:00 35.57 kg/m2 General acute hospital Body temperature 2020-09-30 14:10:00 37.06 Cindi [facility] Systolic blood pressure 2020-07-02 04:00:00 132 mm[Hg] [facility] Diastolic blood pressure 2020-07-02 04:00:00 84 mm[Hg] [facility] Heart rate 2020-07-02 04:00:00 89 /min Un[facility] Oxygen saturation in Arterial blood by Pulse oximetry 2020-07-02 04:00:00 95 /min [facility] Body temperature 2020-07-02 02:53:00 36.94 Cindi [facility] Respiratory rate 2020-07-02 02:53:00 18 /min [facility] Body height 2020-07-02 02:53:00 195.6 cm General acute hospital Body weight 2020-07-02 02:53:00 136.079 kg General acute hospital BMI 2020-07-02 02:53:00 35.57 kg/m2 General acute hospital Systolic blood pressure 2020-07-02 04:00:00 132 mm[Hg] [facility] Diastolic blood pressure 2020-07-02 04:00:00 84 mm[Hg] [facility] Heart rate 2020-07-02 04:00:00 89 /min [facility] Oxygen saturation in Arterial blood by Pulse oximetry 2020-07-02 04:00:00 95 /min [facility] Body temperature 2020-07-02 02:53:00 36.94 Cindi [facility] Respiratory rate 2020-07-02 02:53:00 18 /min [facility] Body height 2020-07-02 02:53:00 195.6 cm General [...] Date / Time Performed Performing Clinician Source EKG-12 LEAD 2024-06-08 00:53:38 Luek Clarke [facility] XR CHEST 2 VW 2024-06-07 22:33:08 Luke Clrake [facility] CREATINE KINASE 2024-06-07 22:26:00 Luke Clarke [facility] LIPASE 2024-06-07 22:26:00 Luke Clarke [facility] MAGNESIUM 2024-06-07 22:26:00 Luke Clarke [facility] TROPONIN I 2024-06-07 22:26:00 Luke Clarke [facility] COMP. METABOLIC PANEL ([id number]) 2024-06-07 22:26:00 Luke Clarke [facility] CBC WITH DIFF 2024-06-07 22:26:00 Luke Clarke [facility] D-DIMER 2024-06-07 22:26:00 Luke Clarke [facility] INFLUENZA A/B RSV COVID NAAT 2024-06-07 22:26:00 Luke Clarke [facility] N-TERMINAL PRO-BNP 2024-06-07 22:26:00 Luke Clarke [facility] CT ABDOMEN PELVIS W CONTRAST 2024-04-02 14:49:11 Trevor Taylor [facility] URINALYSIS 2024-04-02 14:18:00 Trevor Taylor [facility] LIPASE 2024-04-02 14:12:00 [facility] MAGNESIUM 2024-04-02 14:12:00 [facility] TROPONIN I 2024-04-02 14:12:00 [facility] COMP. METABOLIC PANEL ([id number]) 2024-04-02 14:12:00 Trevor Taylor Tiffanie [facility] LIPID PANEL ([id number])(TOTAL CHOLESTEROL, TRIGLYCERIDES, HDL) 2024-04-02 14:12:00 Trevor Taylor Tiffanie [facility] CBC WITH DIFF 2024-04-02 14:12:00 Trevor Taylor [facility] LIPASE 2024-02-21 03:08:00 Leti Rivas [facility] acute hospital COMP. METABOLIC PANEL ([id number]) 2024-02-21 03:08:00 Leti Rivas [facility] CBC WITH DIFF 2024-02-21 03:08:[address] [facility] URINALYSIS 2024-02-21 03:08:00 Leti Rivas [facility] CT ABDOMEN PELVIS W CONTRAST 2023-12-10 02:36:24 Abraham Orantes [facility] COMP. METABOLIC PANEL ([id number]) 2023-12-10 02:05:00 Abraham Orantes [facility] CBC WITH DIFF 2023-12-10 02:05:[address] [facility] URINALYSIS 2023-12-10 02:05:00 Abraham Orantes [facility] CT ABDOMEN PELVIS WO CONTRAST 2023-08-04 04:23:15 Abraham Orantes [facility] BASIC METABOLIC PANEL (NA, K, CL, CO2, GLUCOSE, BUN, CREATININE, CA) 2023-08-04 02:57:00 Abraham Orantes [facility] CBC WITH DIFF 2023-08-04 02:57:[address] [facility] URINALYSIS 2023-08-04 02:57:00 Abraham Orantes [facility] hospital NOTICE OF PRIVACY PRACTICES 2023-08-04 02:16:09 Doctor Unassigned, [place] [facility] CONSENT/REFUSAL FOR DIAGNOSIS AND TREATMENT 2023-08-04 02:15:41 Doctor Unassigned, [place] [facility] LIPASE 2023-07-25 16:37:00 [facility] MAGNESIUM 2023-07-25 16:37:00 [facility] TROPONIN I 2023-07-25 16:37:00 [facility] COMP. METABOLIC PANEL ([id number]) 2023-07-25 16:37:00 Trevor Taylor [facility] CBC WITH DIFF 2023-07-25 16:37:00 Trevor Taylor [facility] URINALYSIS 2023-07-25 16:37:00 [facility] CONSENT/REFUSAL FOR DIAGNOSIS AND TREATMENT 2023-07-25 15:41:41 Doctor Unassigned, [place] [facility] US GALL BLADDER 2023-07-24 22:46:02 Johnathan Avila [facility] URINALYSIS 2023-07-24 20:10:00 Johnathan Avila [facility] EXTRA TUBE URINE CULTURE 2023-07-24 20:10:00 Ember Avila [facility] LIPASE 2023-07-24 20:09:00 Johnathan Avila [facility] COMP. METABOLIC PANEL ([id number]) 2023-07-24 20:09:00 Johnathan Avila [facility] LIPID PANEL ([id number])(TOTAL CHOLESTEROL, TRIGLYCERIDES, HDL) 2023-07-24 20:09:00 Johnathan Avila [facility] CBC WITH DIFF 2023-07-24 20:09:00 Johnathan Avila [facility] CONSENT/REFUSAL FOR DIAGNOSIS AND TREATMENT 2023-07-24 18:31:11 Doctor Unassigned, [place] [facility] XR CHEST 2 VW 2023-07-12 03:54:00 [facility]23-07-12 02:31:00 [facility] 2023-07-12 02:14:00 Norm Saleh [facility] hospital COMP. METABOLIC PANEL ([id number]) 2023-07-12 02:14:00 Norm Saleh [facility] CBC WITH DIFF 2023-07-12 02:14:[address] [facility] COVID-19 (ID NOW RAPID TESTING) 2023-07-12 02:14:00 Norm Saleh [facility] CONSENT/REFUSAL FOR DIAGNOSIS AND TREATMENT 2023-07-12 01:47:09 Doctor Unassigned, [place] [facility] CONSENT FOR MEDICAL TREATMENT OF A MINOR 2023-07-10 05:01:00 Doctor Unassigned, [place] [facility] CT ABDOMEN PELVIS W CONTRAST 2023-07-03 10:43:57 Haresh Santamaria [facility] URINALYSIS 2023-07-03 10:23:00 Haresh Santamaria [facility] LIPASE 2023-07-03 10:11:00 Haresh Santamaria [facility] COMP. METABOLIC PANEL ([id number]) 2023-07-03 10:11:00 Haresh Santamaria [facility] CBC WITH DIFF 2023-07-03 10:11:00 Haresh Santamaria [facility] CONSENT/REFUSAL FOR DIAGNOSIS AND TREATMENT 2023-07-03 09:36:41 Doctor Unassigned, [place] [facility] CT ABDOMEN PELVIS W CONTRAST 2023-05-08 02:15:59 Riya Joseph [facility] HB ABO GROUPING 2023-05-08 01:25:00 Elvin Joseph [facility] LIPASE 2023-05-08 01:19:00 Elvin Joseph Marie [facility] COMP. METABOLIC PANEL ([id number]) 2023-05-08 01:19:00 Riya Joseph Connie [facility] CBC WITH DIFF 2023-05-08 01:19:00 Elvin Joseph Marie [facility] COVID-19 (ID NOW RAPID TESTING) 2023-05-08 01:19:00 Riya Joseph [facility] CONSENT/REFUSAL FOR DIAGNOSIS AND TREATMENT 2023-05-07 22:22:14 Doctor Unassigned, [place] [facility] LIPASE 2023-05-02 03:01:[address] [facility] COMP. METABOLIC PANEL ([id number]) 2023-05-02 03:01:00 Aydin Matos [facility] ETHANOL 2023-05-02 03:01:[address] [facility] CBC WITH DIFF 2023-05-02 03:01:00 Aydin Matos [facility] acute hospital URINALYSIS 2023-05-02 03:01:[address] [facility] URINE DRUG (IMMUNOASSAY) - COMPREHENSIVE DRUG SCREEN W/O REFLEX 2023-05-02 03:01:00 [facility] FOR [facility]AG[facility]IS AND TREATMENT 2023-05-02 02:28:20 Doctor Unassigned, [place] [facility] BASIC METABOLIC PANEL (NA, K, CL, CO2, GLUCOSE, BUN, CREATININE, CA) 2023-04-22 16:47:00 Natali Alexander [facility] LIPASE 2023-04-22 12:58:00 Natali Alexander [facility] BASIC METABOLIC PANEL (NA, K, CL, CO2, GLUCOSE, BUN, CREATININE, CA) 2023-04-22 12:58:00 Natali Alexander [facility] URINALYSIS 2023-04-22 11:44:00 Abraham Orantes [facility] CREATINE KINASE 2023-04-22 09:06:00 Natali Alexander [facility] LIPASE 2023-04-22 09:06:00 Natali Alexander [facility] COMP. METABOLIC PANEL ([id number]) 2023-04-22 09:06:00 Abraham Orantes [facility] CBC WITH DIFF 2023-04-22 09:06:[address] [facility] CONSENT/REFUSAL FOR DIAGNOSIS AND TREATMENT 2023-04-22 08:52:58 Doctor Unassigned, [place] [facility] LIPASE 2023-04-16 12:30:00 Christa [facility] TROPONIN I 2023-04-16 12:30:00 Christa [facility] COMP. METABOLIC PANEL ([id number]) 2023-04-16 12:30:00 [facility] 2023-04-16 12:30:[address] [facility] CONSENT/REFUSAL FOR DIAGNOSIS AND TREATMENT 2023-04-16 11:48:23 Doctor Unassigned, [place] [facility] LIPASE 2023-04-01 05:08:00 [facility] TROPONIN I 2023-04-01 05:08:00 Hemalatha [facility] COMP. METABOLIC PANEL ([id number]) 2023-04-01 05:08:00 Hemalatha Mora [facility] CBC WITH DIFF 2023-04-01 05:08:00 Hemalatha Mora [facility] acute hospital URINALYSIS 2023-04-01 05:08:00 Hemalatha [facility] CONSENT/REFUSAL FOR DIAGNOSIS AND TREATMENT 2023-04-01 04:51:45 Doctor Unassigned, [place] [facility] ASSIGNMENT OF BENEFITS 2023-02-13 21:19:49 Docto r Unassigned, [place] [facility] POCT GLUCOSE (AUTOMATED) 2023-02-13 21:00:00 Alan Gonzales [facility] CONSENT/REFUSAL FOR DIAGNOSIS AND TREATMENT 2023-02-13 20:50:30 Doctor Unassigned, [place] [facility] REFERRAL- REQUEST/RESPONSE 2023-01-05 05:01:00 Doctor Unassigned, [place] [facility] LIPASE 2022-12-09 05:03:[address] [facility] COMP. METABOLIC PANEL ([id number]) 2022-12-09 05:03:00 Soham Clarke [facility] CBC WITH DIFF 2022-12-09 05:03:00 [facility] 2022-12-09 05:03:[address] [facility] NOTICE OF PRIVACY PRACTICES 2022-12-09 04:46:36 Doctor Unassigned, [place] [facility] CONSENT/REFUSAL FOR DIAGNOSIS AND TREATMENT 2022-12-09 04:46:16 Doctor Unassigned, [place] [facility] CT ABDOMEN PELVIS W CONTRAST 2022-11-25 05:38:20 Lion Nascimento [facility] LIPASE 2022-11-25 05:06:00 Lion Nascimento [facility] HEPATIC FUNCTION PANEL ([id number]) (ALB,T.PRO,BILI T,BU/BC,ALT,AST,ALK PHOS) 2022-11-25 05:06:00 [facility] BASIC METABOLIC PANEL (NA, K, CL, CO2, GLUCOSE, BUN, CREATININE, CA) 2022-11-25 05:06:00 Lion Nascimento [facility] CBC WITH DIFF 2022-11-25 05:06:[address] [facility] URINALYSIS 2022-11-25 05:06:00 Lion Nascimento [facility] CONSENT/REFUSAL FOR DIAGNOSIS AND TREATMENT 2022-11-25 04:35:51 Doctor Unassigned, [place] [facility] EXTERNAL PROVIDER RECORDS 2022-10-23 06:01:00 Do ctor Unassigned, [place] [facility] CBC WITH DIFF 2022-10-12 21:26:00 [facility] SPECIFIC [facility]TIGEN 2022-10-12 10:48:00 Jonh Roman [facility] HEPATIC FUNCTION PANEL ([id number]) (ALB,T.PRO,BILI T,BU/BC,ALT,AST,ALK PHOS) 2022-10-12 10:48:00 Jana [facility] BASIC METABOLIC PANEL (NA, K, CL, CO2, GLUCOSE, BUN, CREATININE, CA) 2022-10-12 10:48:00 Jana [facility] CBC WITH DIFF 2022-10-12 10:48:00 Lb Bates [facility] HEPATIC FUNCTION PANEL ([id number]) (ALB,T.PRO,BILI T,BU/BC,ALT,AST,ALK PHOS) 2022-10-11 23:53:00 Jana [facility] BASIC METABOLIC PANEL (NA, K, CL, CO2, GLUCOSE, BUN, CREATININE, CA) 2022-10-11 23:53:00 Jana [facility] US GALL BLADDER 2022-10-11 22:28:58 Jana [facility] ABORH CONFIRMATION (LAB ONLY) 2022-10-11 21:24:00 Jana [facility] URINALYSIS 2022-10-11 21:23:[address] [facility] HB ABO GROUPING 2022-10-11 20:41:00 Jana [facility] CBC WITH DIFF 2022-10-11 20:35:00 Lb Bates [facility] CT ANGIOGRAM ABDOMEN/PELVIS 2022-10-11 14:52:00 Aydin Matos [facility] HB ECG ROUTINE & RHYTHM STRIP 2022-10-11 13:48:04 Aydin Matos [facility] LIPASE 2022-10-11 13:42:00 [facility] TROPONIN I 2022-10-11 13:42:00 A[facility]in [facility] COMP. METABOLIC PANEL ([id number]) 2022-10-11 13:42:00 Aydin Matos [facility] LIPID PANEL ([id number])(TOTAL CHOLESTEROL, TRIGLYCERIDES, HDL) 2022-10-11 13:42:00 Lb Bates [facility] CBC WITH DIFF 2022-10-11 13:42:00 Aydin Matos [facility] PROTHROMBIN TIME / INR 2022-10-11 13:42:00 Nicholas Matos [facility] ACTIVATED PARTIAL THRMPLAS TAE 2022-10-11 13:42:00 Aydin Matos [facility] N-TERMINAL PRO-BNP 2022-10-11 13:42:00 Aydin Matos [facility] URINE DRUG (IMMUNOASSAY) - COMPREHENSIVE DRUG SCREEN W/O REFLEX 2022-10-11 13:42:00 Aydin Matos [facility] CONSENT/REFUSAL FOR DIAGNOSIS AND TREATMENT 2022-10-11 12:24:48 Doctor Unassigned, [place] [facility] CT ABDOMEN PELVIS W CONTRAST 2022-10-09 06:30:25 Abraham Ornates [facility] LIPASE 2022-10-09 05:24:00 Abraham Orantes [facility] COMP. METABOLIC PANEL ([id number]) 2022-10-09 05:24:00 Abraham Orantes [facility] CBC WITH DIFF 2022-10-09 05:24:[address] [facility] URINALYSIS 2022-10-09 05:24:00 Abraham Orantes [facility] CONSENT/REFUSAL FOR DIAGNOSIS AND TREATMENT 2022-10-09 03:56:57 Doctor Unassigned, [place] [facility] COMP. METABOLIC PANEL ([id number]) 2022-08-20 15:11:00 Trevor Taylor [facility] CBC WITH DIFF 2022-08-20 15:11:00 Trevor Taylor [facility] URINALYSIS 2022-08-20 15:11:[address] [facility] CONSENT/REFUSAL FOR DIAGNOSIS AND TREATMENT 2022-08-20 14:32:58 Doctor Unassigned, [place] [facility] CT ABDOMEN PELVIS W CONTRAST 2022-06-09 13:12:35 Soham Clarke [facility] LIPASE 2022-06-09 12:48:[address] [facility] COMP. METABOLIC PANEL ([id number]) 2022-06-09 12:48:00 Soham Clarke [facility] CBC WITH DIFF 2022-06-09 12:48:00 [facility] 2022-06-09 12:48:[address] [facility] NOTICE OF PRIVACY PRACTICES 2022-06-09 11:47:39 Doctor Unassigned, [place] [facility] CONSENT/REFUSAL FOR DIAGNOSIS AND TREATMENT 2022-06-09 11:47:18 Doctor Unassigned, [place] [facility] PHOSPHORUS 2021-11-01 09:55:[address] [facility] MAGNESIUM 2021-11-01 09:55:00 Darshan [facility] BASIC METABOLIC PANEL (NA, K, CL, CO2, GLUCOSE, BUN, CREATININE, CA) 2021-11-01 09:55[facility] 2021-11-01 09:55:00 Jessi Sextonthia [facility] PHOSPHORUS 2021-10-31 08:45:00 Roxanne Swenson [facility] CREATINE KINASE 2021-10-31 08:45:[address] [facility] MAGNESIUM 2021-10-31 08:45:00 Emelia Gallego [facility] TROPONIN I 2021-10-31 08:45:00 Roxanne Swenson [facility] COMP. METABOLIC PANEL ([id number]) 2021-10-31 08:45:00 Roxanne Swenson [facility] CBC WITH DIFF 2021-10-31 08:45:00 Emelia Gallego [facility] PROTHROMBIN TIME / INR 2021-10-31 08:45:00 Ramos Swenson [facility] N-TERMINAL PRO-BNP 2021-10-31 08:45:00 Roxanne Swenson [facility] LACTIC ACID WHOLE BLOOD 2021-10-31 08:45:00 Erwin Swenson [facility] FECES CULTURE 2021-10-30 22:27:[address] [facility] OCCULT (GUAIAC) BLOOD 2021-10-30 22:27:00 Juany Hernandez [facility] CLOSTRIDIUM DIFFICILE TOXIN 2021-10-30 22:27:00 Monica Hernandez [facility] COVID-19 (ID NOW RAPID TESTING) 2021-10-30 21:24:00 Madison Sepulveda [facility] LAB ONLY COVID INTERPRETATION 2021-10-30 21:24:00 Madison Sepulveda [facility] CT ABDOMEN PELVIS W CONTRAST 2021-10-30 20:44:09 Madison Sepulveda [facility] LIPASE 2021-10-30 20:25:00 Madison Sepulveda [facility] TROPONIN I 2021-10-30 20:25:00 Roxanne Swenson [facility] COMP. METABOLIC PANEL ([id number]) 2021-10-30 20:25:00 Madison Sepulveda [facility] CBC WITH DIFF 2021-10-30 20:25:00 Madison Sepulveda [facility] URINALYSIS 2021-10-30 20:25:00 Madison Sepulveda [facility] N-TERMINAL PRO-BNP 2021-10-30 20:25:00 Roxanne Swenson [facility] CONSENT/REFUSAL FOR DIAGNOSIS AND TREATMENT 2021-10-30 19:24:05 Doctor Unassigned, [place] [facility] CREATINE KINASE 2021-05-24 04:40:00 Felipe Ortega [facility] BASIC METABOLIC PANEL (NA, K, CL, CO2, GLUCOSE, BUN, CREATININE, CA) 2021-05-24 04:40:00 Felipe Ortega [facility] URINALYSIS 2021-05-24 02:14:00 Felipe Ortega [facility] CREATINE KINASE 2021-05-24 01:53:00 [facility] 2021-05-24 01:53:00 Felipe Ortega [facility] COMP. METABOLIC PANEL ([id number]) 2021-05-24 01:53:00 Felipe Ortega [facility] CBC WITH DIFF 2021-05-24 01:53:00 Felipe Ortega Uni [facility] N-TERMINAL PRO-BNP 2021-05-24 01:53:00 Felipe Ortega [facility] ASSIGNMENT OF BENEFITS 2021-05-23 00:46:04 Docto r Unassigned, [place] [facility] CONSENT/REFUSAL FOR DIAGNOSIS AND TREATMENT 2021-05-22 23:31:57 Doctor Unassigned, [place] [facility] SARS-COV-2 COVID-19 VACCINE,0.3ML,IM (PFIZER) 2021-05-07 16:12:40 Doctor Unassigned, [place] [facility] RAPID STREP SCREEN FOR GROUP A 2021-05-02 00:07:00 Aydin Matos [facility] COVID-19 (ID NOW RAPID TESTING) 2021-05-02 00:07:00 Aydin Matos [facility] CONSENT/REFUSAL FOR DIAGNOSIS AND TREATMENT 2021-05-01 23:56:07 Doctor Unassigned, [place] [facility] RAPID STREP SCREEN FOR GROUP A 2021-04-02 01:05:00 Nikhil lBanton [facility] COVID-19 (ID NOW RAPID TESTING) 2021-04-02 01:05:00 Nikhil Blanton [facility] NOTICE OF PRIVACY PRACTICES 2021-04-02 00:56:18 Doctor Unassigned, [place] [facility] CONSENT/REFUSAL FOR DIAGNOSIS AND TREATMENT 2021-04-02 00:49:05 Doctor Unassigned, [place] [facility] XR WRIST 3+ VW LEFT 2021-03-18 01:19:59 Destini Blanton [facility] URINALYSIS 2021-03-18 01:12:00 Nikhil Blanton [facility] CONSENT/REFUSAL FOR DIAGNOSIS AND TREATMENT 2021-03-18 00:56:01 Doctor Unassigned, [place] [facility] XR CHEST 1 VW 2020-11-15 03:48:28 Hsu Darnell R [facility] acute hospital CONSENT/REFUSAL FOR DIAGNOSIS AND TREATMENT 2020-11-15 03:11:27 Doctor Unassigned, [place] [facility] CT HEAD WO CONTRAST 2020-09-30 15:00:43 Jessica Siddiqui ra [facility] XR CHEST 1 VW 2020-09-30 14:37:13 Jessy Siddiqui [facility] LIPASE 2020-09-30 14:25:00 Jessy Siddiqui Un [facility] TROPONIN I 2020-09-30 14:25:00 Jessy Siddiqui [facility] COMP. METABOLIC PANEL ([id number]) 2020-09-30 14:25:00 Jessy Siddiqui [facility] CBC WITH DIFF 2020-09-30 14:25:00 Jessy Siddiqui [facility] N-TERMINAL PRO-BNP 2020-09-30 14:25:00 Solitario Siddiqui [facility] NOTICE OF PRIVACY PRACTICES 2020-09-30 13:57:13 Doctor Unassigned, [place] [facility] CONSENT/REFUSAL FOR DIAGNOSIS AND TREATMENT 2020-09-30 13:55:57 Doctor Unassigned, [place] [facility] EKG-12 LEAD 2020-07-02 03:20:42 Felipe Ortega [facility] LIPASE 2020-07-02 03:05:00 Abraham Orantes [facility] TROPONIN I 2020-07-02 03:05:00 Felipe Ortega [facility] COMP. METABOLIC PANEL ([id number]) 2020-07-02 03:05:00 Abraham Orantes [facility] CBC WITH DIFF 2020-07-02 03:05:[address] [facility] NOTICE OF PRIVACY PRACTICES 2020-07-02 02:48:43 Doctor Unassigned, [place] [facility] CONSENT/REFUSAL FOR DIAGNOSIS AND TREATMENT 2020-07-02 02:46:14 Doctor Unassigned, [place] [facility] Plan of Care Planned Activity Planned Date Details Comments Source Goal Plan of Care Note [code = 77798-1] Goal Plan of Care Note [code = 03720-5] Goal Plan of Care Note [code = 27142-4] Goal Plan of Care Note [code = 06995-8] Goal Plan of Care Note [code = 22195-5] Goal Plan of Care Note [code = 52211-2] Goal Plan of Care Note [code = 11253-9] Goal Plan of Care Note [code = 66994-3] Goal Plan of Care Note [code = 65166-9] Goal Plan of Care Note [code = 14607-5] Goal Plan of Care Note [code = 09528-2] Goal Plan of Care Note [code = 45766-2] Goal Plan of Care Note [code = 73655-5] Goal Plan of Care Note [code = 63017-2] Goal Plan of Care Note [code = 94983-8] Encounters Start Date/Time End Date/Time Encounter Type Admission Type Attending Clinicians Care Facility Care Department Encounter ID Source 2022-07-29 14:17:02 Outpatient Mayuri James [facility] [id number] [facility] 2022-07-11 08:20:03 Outpatient Mayuri James [facility] [id number] [facility] 2024-08-29 09:30:00 2024-08-29 09:30:00 Outpatient OMARI RAZA [id number] [facility] 2024-08-05 08:30:00 2024-08-05 08:30:00 Outpatient ADRI TAYLOR [id number] [facility] 2024-08-03 00:00:00 2024-08-03 00:00:00 Outpatient MD LUZ MARIA AN [id number] [facility] 2024-07-29 00:00:00 2024-07-29 00:00:00 Outpatient PREZASHAYDEN LUZ MARIA [id number] [facility] 2024-07-28 00:00:00 2024-07-28 00:00:00 Outpatient PREZASHAYDEN LUZ MARIA [id number] [facility] 2024-07-28 00:00:00 2024-07-28 00:00:00 Outpatient LEANDRO MANN LUZ MARIA HOLLIDAY [id number] [facility] 2024-07-20 08:45:00 2024-07-20 08:45:00 Outpatient PREZAS, HAYDEN LUZ MARIA HOLLIDAY [id number] [facility] 2024-07-07 00:00:00 2024-07-07 00:00:00 Outpatient PREZAS, HAYDEN LUZ MARIA HOLLIDAY [id number] [facility] 2024-06-16 00:00:00 2024-06-16 00:00:00 Outpatient PREZAS, HAYDEN LUZ MARIA HOLLIDAY [id number] [facility] 2024-06-07 16:57:00 2024-06-07 20:05:00 Emergency X LUKE CLARKE JOSHUA [facility] [id number] [facility] 2024-06-07 16:57:00 2024-06-07 20:05:00 Emergency Luke Clarke [facility] 1.2.840.114 350.1.13.10 4.2.7.2.686 [id number] [facility] 2024-05-30 09:45:00 2024-05-30 09:45:00 Outpatient PREZAS, HAYDEN LUZ MARIA HOLLIDAY [id number] [facility] 2024-05-26 08:30:00 2024-05-26 08:30:00 Outpatient HARSHIL STYLES LUZ MARIA HOLLIDAY [id number] [facility] 2024-05-26 00:00:00 2024-05-26 00:00:00 Outpatient SIDADRI HEREDIA LUZ MARIA HOLLIDAY [id number] [facility] 2024-05-25 00:00:00 2024-05-25 00:00:00 Outpatient HAYDEN ORTIZ LUZ MARIA HOLLIDAY [id number] [facility] 2024-05-24 15:00:00 2024-05-24 15:00:00 Outpatient HAYDEN ORTIZ LUZ MARIA HOLLIDAY [id number] [facility] 2024-05-23 00:00:00 2024-05-23 00:00:00 Outpatient MD LUZ MARIA AN [id number] [facility] 2024-05-18 11:10:00 2024-05-18 11:10:00 Outpatient FOUZIA GUNDERSON [id number] [facility] 2024-05-12 00:00:00 2024-05-12 00:00:00 Outpatient LUZ MARIA HOLLIDAY [id number] [facility] 2024-05-09 00:00:00 2024-05-09 00:00:00 Outpatient HAYDEN ORTIZ LUZ MARIA HOLLIDAY [id number] [facility] 2024-05-05 00:00:00 2024-05-05 00:00:00 Outpatient GIBRAN MCADAMS [id number] [facility] 2024-05-04 08:30:00 2024-05-04 08:30:00 Outpatient LUZ MARIA HOLLIDAY [id number] [facility] 2024-04-29 00:00:00 2024-04-29 00:00:00 Outpatient HAYDEN ORTIZ LUZ MARIA HOLLIDAY [id number] [facility] 2024-04-22 08:00:00 2024-04-22 08:00:00 Outpatient LUZ MARIA HOLLIDAY [id number] [facility] 2024-04-12 09:40:00 2024-04-12 09:40:00 Outpatient BROOK ALLEN [id number] [facility] 2024-04-11 08:00:00 2024-04-11 08:00:00 Outpatient LUZ MARIA HOLLIDAY [id number] [facility] 2024-04-11 00:00:00 2024-04-11 00:00:00 Outpatient AMIE MCADAMSEL LUZ MARIA HOLLIDAY [id number] [facility] 2024-04-08 16:30:00 2024-04-08 16:30:00 Outpatient LEANDRO MANN LUZ MARIA HOLLIDAY [id number] [facility] 2024-04-04 08:10:00 2024-04-04 08:10:00 Outpatient LAB90 LUZ MARIA HOLLIDAY [id number] [facility] 2024-04-02 08:39:00 2024-04-02 12:55:00 Emergency X Trevor TYALOR K [facility] ERT [id number] [facility] 2024-04-02 08:39:00 2024-04-02 12:55:00 Emergency Trevor Taylor [facility] 1.2.840.114 350.1.13.10 4.2.7.2.686 [id number] [facility] 2024-04-02 00:00:00 2024-04-02 00:00:00 Outpatient YOUNG, ELVA LUZ MARIA HOLLIDAY [id number] [facility] 2024-03-30 09:00:00 2024-03-30 09:00:00 Outpatient LAB47 LUZ MARIA HOLLIDAY [id number] [facility] 2024-03-30 08:30:00 2024-03-30 08:30:00 Outpatient GIBRAN MCADAMS [id number] [facility] 2024-03-30 00:00:00 2024-03-30 00:00:00 Outpatient DEEJAY GIBRANLAMONTE HOLLIDAY [id number] [facility] 2024-03-30 00:00:00 2024-03-30 00:00:00 Outpatient HAYDEN ORTIZ [id number] [facility] 2024-03-28 00:00:00 2024-03-28 00:00:00 Outpatient HAYDEN ORTIZ [id number] [facility] 2024-03-23 00:00:00 2024-03-23 00:00:00 Outpatient HAYDEN ORTIZ [id number] [facility]z Maria Ng 2024-02-29 00:00:00 2024-02-29 13:30:22 Letter (Out) Karl Ferguson [facility] [place] [facility] 1.2.840.114 350.1.13.10 4.2.7.2.686 [id number] [facility] 2024-02-24 00:00:00 2024-02-24 00:00:00 Outpatient MELINA GOLDBERG [id number] [facility] 2024-02-24 00:00:00 2024-02-24 00:00:00 Outpatient HAYDEN ORTIZ [id number] [facility] 2024-02-22 00:00:00 2024-02-22 14:50:01 Letter (Out) Elida Lewis [facility] [place] [facility] 1..840.114 350.1.13.10 4.2.7.2.686 [id number] [facility] 2024-02-22 00:00:00 2024-02-22 00:00:00 Outpatient HAYDEN ORTIZ [id number] [facility] 2024-02-20 21:47:00 2024-02-20 23:54:00 Emergency LETI ROGERS ERICCA [facility] ERT [id number] [facility] 2024-02-20 21:47:00 2024-02-20 23:54:00 Emergency Leti Rivas [facility] 1..840.114 350.1.13.10 4.2.7.2.686 [id number] [facility] 2024-01-26 00:00:00 2024-01-26 00:00:00 Outpatient HAYDEN ORTIZ [id number] [facility] 2024-01-15 00:00:00 2024-01-15 00:00:00 Outpatient HAYDEN ORTIZ LUZ MARIA [id number] [facility] 2023-12-28 00:00:00 2023-12-28 00:00:00 Outpatient PREZAHAYDEN Genao LUZ MARIA [id number] [facility]z Maria Ng 2023-12-18 00:00:00 2023-12-18 00:00:00 Outpatient LUZ MARIA LUZ MARIA [id number] [facility] 2023-12-17 15:30:00 2023-12-17 15:30:00 Outpatient PREZAHAYDEN Genao LUZ MARIA [id number] [facility] 2023-12-11 00:00:00 2023-12-11 00:00:00 Outpatient PREZAHAYDEN Genao LUZ MARIA [id number] [facility] 2023-12-09 20:14:00 2023-12-09 23:50:00 Emergency X RACHEALCHANDRAKANTSAMUELABRAHAM [facility] ERT [id number] [facility] 2023-12-09 20:14:00 2023-12-09 23:50:00 Emergency mAan Orantesclemente S [facility] 1.2.840.114 350.1.13.10 4.2.7.2.686 [id number] [facility] 2023-11-24 00:00:00 2023-11-24 00:00:00 Outpatient HAYDEN ORTIZ LUZ MARIA HOLLIDAY [id number] [facility] 2023-11-18 00:00:00 2023-11-18 00:00:00 Letter (Out) Chavez Turner [facility] 1.2.840.114 350.1.13.10 4.2.7.2.686 [id number] [facility] 2023-11-10 14:00:00 2023-11-10 14:00:00 Outpatient PREZAHAYDEN Genao LUZ MARIA HOLLIDAY [id number] [facility] 2023-11-09 00:00:00 2023-11-09 00:00:00 Outpatient PREZABirgit HAYDEN HOLLIDAY LUZ MARIA [id number] [facility] 2023-11-06 00:00:00 2023-11-06 00:00:00 Outpatient HAYDEN ORTIZ LUZ MARIA HOLLIDAY [id number] [facility] 2023 11:30:00 2023 11:30:00 Outpatient CALLIE THORNE [facility]ULIANA [facility] [id number] [facility] 2023-10-16 00:00:00 2023-10-16 00:00:00 Outpatient HAYDEN ORTIZ LUZ MARIA HOLLIDAY [id number] [facility] 2023-10-13 00:00:00 2023-10-13 00:00:00 Outpatient LUZ MARIA HOLLIDAY [id number] [facility] 2023-10-06 14:30:00 2023-10-06 14:30:00 Outpatient HAYDEN ORTIZ LUZ MARIA HOLLIDAY [id number] [facility] 2023-08-14 00:00:00 2023-08-14 00:00:00 Outpatient MERLYN WORTHINGTON [facility] [id number] [facility] 2023-08-13 00:00:00 2023-08-13 00:00:00 Patient Secure Msg Doctor Unassigned, [place] [facility] 1..840.114 350.1.13.10 4.2.7.2.686 [id number] [facility] 2023-08-11 16:15:00 2023-08-11 16:15:00 Outpatient HENRIK ADAN LUZ MARIA HOLLIDAY [id number] [facility] 2023-08-03 20:26:00 2023-08-04 00:05:00 Emergency X ABRAHAM ORANTES [facility] ERT [id number] [facility] 2023-08-03 20:26:00 2023-08-04 00:05:00 Emergency Abraham Orantes [facility] 1..840.114 350.1.13.10 4.2.7.2.686 [id number] [facility] 2023-08-03 00:00:00 2023-08-03 00:00:00 Outpatient KIARA RICHARDSON [id number] Luz Maria Ng 2023-08-03 00:00:00 2023-08-03 00:00:00 Orders Only Doctor Unassigned, [place] [facility] 1..114 350.1.13.10 4.2.7.2.686 [id number] [facility] 2023-07-25 09:58:00 2023-07-25 12:56:00 Emergency X Trevor TAYLOR [facility] ERT [id number] [facility] 2023-07-25 09:58:00 2023-07-25 12:56:00 Emergency Trevor Taylor [facility] 1.114 350.1.13.10 4.2.7.2.686 [id number] [facility] 2023-07-24 12:36:00 2023-07-24 17:49:00 Emergency X JOHNATHAN AVILA [facility] ERT [id number] [facility] 2023-07-24 12:36:00 2023-07-24 17:49:00 Emergency Johnathan Avila [facility] 1..114 350.1.13.10 4.2.7.2.686 [id number] [facility] 2023-07-24 14:30:00 2023-07-24 14:30:00 Outpatient ADAN CHESTER [id number] Luz Maria marcell 2023-07-24 00:00:00 2023-07-24 00:00:00 Telephone Merlyn Corbin [facility] 1.840.114 350.1.13.10 4.2.7.2.686 [id number] [facility] 2023-07-23 05:22:00 2023-07-23 10:02:00 Emergency EM Jessie PaulWU RAMO [id number] [address] [facility] 2023-07-22 00:00:00 2023-07-22 00:00:00 [facility] 1.840.114 350.1.13.10 4.2.7.2.686 [id number] [facility] 2023-07-22 00:00:00 2023-07-22 00:00:00 Patient Secure Msg Doctor Unassigned, [place] [facility] 1..840.114 350.1.13.10 4.2.7.2.686 [id number] [facility] 2023-07-20 00:00:00 2023-07-20 00:00:00 Telephone Nasser, [facility] CARE [place] [facility] 1.840.114 350.1.13.10 4.2.7.2.686 [id number] [facility] 2023-07-17 13:45:00 2023-07-17 13:45:00 Outpatient JIMMY BRENNAN [id number] Luz Maria Ng 2023-07-11 20:53:00 2023-07-11 23:38:00 Emergency X STEPHIE HEWITT [facility] ERT [id number] [facility] 2023-07-11 20:53:00 2023-07-11 23:38:00 Emergency Stephie Hewitt [facility] 1.840.114 350.1.13.10 4.2.7.2.686 [id number] [facility] 2023-07-10 08:45:00 2023-07-10 12:03:37 [facility] [id number] 2023-07-10 08:45:00 2023-07-10 12:03:37 Office Visit Merlyn Corbin [facility] 1.2.840.114 350.1.13.10 4.2.7.2.686 [id number] [facility] 2023-07-10 00:00:00 2023-07-10 00:00:00 Orders Only Doctor Unassigned, [place] [facility] 1.2.840.114 350.1.13.10 4.2.7.2.686 [id number] [facility] 2023-07-08 09:15:00 2023-07-08 09:15:00 Outpatient KIARA RICHARDSON [id number] [facility]z Maria Ng 2023-07-03 04:49:00 2023-07-03 09:47:00 Emergency X [facility] [id number] [facility] 2023-07-03 04:49:00 2023-07-03 09:47:00 [facility] [place] 1..840.114 350.1.13.10 4.2.7.2.686 [id number] [facility] 2023-07-01 22:56:00 2023-07-02 01:00:00 Emergency Jessie Billingsley [facility] ER [id number] [facility] 2023-05-20 15:50:00 2023-05-20 15:50:00 Outpatient LAB56 LUZ MARIA HOLLIDAY [id number] Luz Maria Ng 2023-05-20 15:15:00 2023-05-20 15:15:00 Outpatient KIARA RICHARDSON [id number] Luz Maria Ng 2023-05-07 17:37:00 2023-05-07 23:23:00 Emergency X STILGENBAUE R, MANFRED [facility] ERT [id number] [facility] 2023-05-07 17:37:00 2023-05-07 23:23:00 Emergency Kelsi sharma [facility] 1.2.840.114 350.1.13.10 4.2.7.2.686 [id number] [facility] 2023-05-01 21:39:00 2023-05-02 00:35:00 Emergency X AYDIN MATOS [facility] ERT [id number] [facility] 2023-05-01 21:39:00 2023-05-02 00:35:00 Emergency Aydin Matos [facility] 1.2.840.114 350.1.13.10 4.2.7.2.686 [id number] [facility] 2023-04-22 03:51:00 2023-04-22 13:11:00 Emergency X NATALI ALEXANDER [facility] ERT [id number] [facility] 2023-04-22 03:51:00 2023-04-22 13:11:00 Emergency Abraham Orantes [facility] 1.2.840.114 350.1.13.10 4.2.7.2.686 [id number] [facility] 2023-04-16 07:09:00 2023-04-16 09:00:00 Emergency X ADELAIDE GOODWIN [facility] ERT [id number] [facility] 2023-04-16 07:09:00 2023-04-16 09:00:00 Emergency Adelaide Goodwin [facility] 1.2.840.114 350.1.13.10 4.2.7.2.686 [id number] [facility] 2023-03-31 23:59:00 2023-04-01 03:24:00 Emergency X HEMALATHA MORA [facility] ERT [id number] [facility] 2023-03-31 23:59:00 2023-04-01 03:24:00 Emergency Hemalatha Mora [facility] 1.2.840.114 350.1.13.10 4.2.7.2.686 [id number] [facility] 2023-02-13 16:02:00 2023-02-13 17:25:00 Emergency X JESSICA GONZALES [facility] ERT [id number] [facility] 2023-02-13 16:02:00 2023-02-13 17:25:00 Emergency Jessica Gonzales [facility] 1.2.840.114 350.1.13.10 4.2.7.2.686 [id number] [facility] 2023-01-05 00:00:00 2023-01-05 00:00:00 Orders Only Doctor Unassigned, [place] [facility] 1.2.840.114 350.1.13.10 4.2.7.2.686 [id number] [facility] 2022-12-29 17:25:40 2022-12-29 17:25:40 Outpatient [facility] [id number] Dewey Tripathi Kris 2022-12-09 00:01:00 2022-12-09 01:39:00 Emergency X SOHAM CLARKE [facility] ERT [id number] [facility] 2022-12-09 00:01:00 2022-12-09 01:39:00 Emergency Soham Clarke [facility] 1.2.840.114 350.1.13.10 4.2.7.2.686 [id number] [facility] 2022-11-24 23:44:00 2022-11-25 02:56:00 Emergency X AYDIN MATOS [facility] ERT [id number] [facility] 2022-11-24 23:44:00 2022-11-25 02:56:00 Emergency Lion Nascimento [facility] 1.2.840.114 350.1.13.10 4.2.7.2.686 [id number] [facility] 2022-10-25 00:00:00 2022-10-25 00:00:00 Patient Secure Msg Doctor Unassigned, [place] [facility] 1.2.840.114 350.1.13.10 4.2.7.2.686 [id number] [facility] 2022-10-23 00:00:00 2022-10-23 00:00:00 Orders Only Doctor Unassigned, [place] [facility] 1.2840.114 350.1.13.10 4.2.7.2.686 [id number] [facility] 2022-10-11 06:41:00 2022-10-12 17:56:00 Outpatient X MARK HERNANDEZ [facility] MARTI [id number] [facility] 2022-10-11 06:41:00 2022-10-12 17:56:00 Emergency Aydin Matos Norman [facility] 1.2840.114 350.1.13.10 4.2.7.2.686 [id number] [facility] 2022-10-08 22:15:00 2022-10-09 01:39:00 Emergency X RACHEALCHANDRAKANTSAMUELABRHAAM [facility] ERT [id number] [facility] 2022-10-08 22:15:00 2022-10-09 01:39:00 Emergency Abraham Orantes [facility] 1.2.840.114 350.1.13.10 4.2.7.2.686 [id number] [facility] 2022-10-08 00:00:00 2022-10-08 00:00:00 Orders Only Doctor Unassigned, [place] [facility] 1.2840.114 350.1.13.10 4.2.7.2.686 [id number] [facility] 2022-08-20 08:42:00 2022-08-20 12:19:00 Emergency X Trevor TAYLOR [facility] ERT [id number] [facility] 2022-08-20 08:42:00 2022-08-20 12:19:00 Emergency Trevor Talyor [facility] 1.2840.114 350.1.13.10 4.2.7.2.686 [id number] [facility] 2022-07-11 00:00:00 2022-07-11 00:00:00 OFFICE VISIT NEW PT LEVEL 3 STLMLC STLMLC [id number] [facility] 2022-07-09 10:07:22 2022-07-09 10:07:22 Outpatient [facility] [id number] 1026 Dewey Ponce 2022-07-09 00:00:00 2022-07-09 00:00:00 Outpatient Visit [id number] 2022-06-09 06:57:00 2022-06-09 10:27:00 Emergency SOHAM BOLANOS [facility] ERT [id number] [facility] 2022-06-09 06:57:00 2022-06-09 10:27:00 Emergency Soham Clarke [facility] 1.2840.114 350.1.13.10 4.2.7.2.686 [id number] [facility] 2022-06-09 00:00:00 2022-06-09 00:00:00 Orders Only Doctor Unassigned, [place] [facility] 1.2840.114 350.1.13.10 4.2.7.2.686 [id number] [facility] 2021-11-04 00:00:00 2021-11-04 00:00:00 Transition of Care Ellen Carroll 1.2.840.114 350.1.13.10 4.2.7.2.686 [id number] [facility] 2021-10-30 13:39:00 2021-11-01 13:45:00 Inpatient X EMELIA GALLEGO [facility] MARTI [id number] [facility] 2021-10-30 13:39:00 2021-11-01 13:45:00 Hospital Encounter Madison Sepulveda David [facility] 1.2.840.114 350.1.13.10 4.2.7.2.686 [id number] [facility] 2021-10-30 00:00:00 2021-10-30 00:00:00 Orders Only Doctor Unassigned, [place] [facility] 1.2.840.114 350.1.13.10 4.2.7.2.686 [id number] [facility] 2021-05-23 20:42:00 2021-05-24 01:42:00 Emergency Felipe Ortega [facility] 1.2.840.114 350.1.13.10 4.2.7.2.686 [id number] [facility] 2021-05-23 20:42:00 2021-05-23 20:42:00 Emergency X FELIPE ORTEGA [facility] ERT [id number] [facility] 2021-05-22 18:37:00 2021-05-22 21:40:00 Emergency Gabriella Zarate [facility] 1.2.840.114 350.1.13.10 4.2.7.2.686 [id number] [facility] 2021-05-22 18:31:00 2021-05-22 18:31:00 Emergency X [facility] ERT [id number] [facility] 2021-05-07 11:11:35 2021-05-07 11:11:42 Imm/Inj Visit Nurse, Malika Mallory ImmunizatiDavid Handy [facility] 1.2.840.114 350.1.13.10 4.2.7.2.686 [id number] [facility] 2021-05-01 19:09:00 2021-05-01 20:46:00 [facility] 1.2.840.114 350.1.13.10 4.2.7.2.686 [id number] [facility] 2021-05-01 18:53:00 2021-05-01 18:53:00 Emergency X [facility] ERT [id number] [facility] 2021-04-01 20:06:00 2021-04-01 21:56:00 [facility] 1.2840.114 350.1.13.10 4.2.7.2.686 [id number] [id number] 2021-04-01 20:06:00 2021-04-01 21:56:00 [facility] 1.2840.114 350.1.13.10 4.2.7.2.686 [id number] [facility] 2021-04-01 20:06:00 2021-04-01 20:06:00 Emergency X [place], [facility] ERT [id number] [facility] 2021-03-17 20:09:00 2021-03-17 22:19:00 [facility] 1.2.840.114 350.1.13.10 4.2.7.2.686 [id number] 2021-03-17 20:09:00 2021-03-17 22:19:00 Emergency Nikhil Blanton [facility] 1.2.840.114 350.1.13.10 4.2.7.2.686 [id number] [facility] 2021-03-17 19:56:00 2021-03-17 19:56:00 Emergency X [facility] ERT [id number] [facility] 2020-11-15 00:00:00 2020-11-15 00:00:00 Telephone Pcp, Patient Does Not Have A [facility] 1.2.840.114 350.1.13.10 4.2.7.2.686 [id number] 2020-11-15 00:00:00 2020-11-15 00:00:00 Letter (Out) [facility] 1.2.840.114 350.1.13.10 4.2.7.2.686 [id number] 2020-11-15 00:00:00 2020-11-15 00:00:00 Letter (Out) [facility] 1.2.840.114 350.1.13.10 4.2.7.2.686 [id number] [facility] 2020-11-15 00:00:00 2020-11-15 00:00:00 Telephone Pcp, Patient Does Not Have A [facility] 1.2.840.114 350.1.13.10 4.2.7.2.686 [id number] [facility] 2020-11-14 21:29:00 2020-11-14 22:55:00 Emergency Darnell Hsu [facility] 1.2.840.114 350.1.13.10 4.2.7.2.686 [id number] 2020-11-14 21:29:00 2020-11-14 22:55:00 Emergency Darnell Hsu [facility] 1.2.840.114 350.1.13.10 4.2.7.2.686 [id number] [id number] [facility] 2020-11-14 21:29:00 2020-11-14 22:55:00 Emergency X DARNELL HSU [facility] ERT [id number] [facility] 2020-09-30 08:03:00 2020-09-30 10:45:00 Emergency Jessy Siddiqui [facility] 1.2.840.114 350.1.13.10 4.2.7.2.686 [id number] 2020-09-30 08:03:00 2020-09-30 10:45:00 Emergency Jessy Siddiqui [facility] 1.2.840.114 350.1.13.10 4.2.7.2.686 [id number] [facility] 2020-09-30 07:58:00 2020-09-30 07:58:00 Emergency X [facility] ERT [id number] [facility] 2020-09-30 00:00:00 2020-09-30 00:00:00 Orders Only Doctor Unassigned, [place] [facility] 1.2.840.114 350.1.13.10 4.2.7.2.686 [id number] 2020-09-30 00:00:00 2020-09-30 00:00:00 Orders Only Doctor Unassigned, [place] [facility] 1.2.840.114 350.1.13.10 4.2.7.2.686 [id number] [facility] 2020-07-01 21:58:00 2020-07-01 23:54:00 Emergency Felipe Ortega [facility] 1.2.840.114 350.1.13.10 4.2.7.2.686 [id number] 2020-07-01 21:58:00 2020-07-01 23:54:00 Emergency Felipe Ortega [facility] 1.2.840.114 350.1.13.10 4.2.7.2.686 [id number] [facility] 2020-07-01 21:58:00 2020-07-01 21:58:00 Emergency X FELIPE ORTEGA [facility] ERT [id number] [facility] Results Test Description Test Time Test Comments Results Result Co mments Source [facility] FriscoTROPONIN [id number] 23:38:46* Test Item Value Reference Range Interpretation Comme nts TROPONIN I (test code = 5960268533) 0.004 ng/mL <=0.034 KRYSTLE (test code = KRYSTLE) [...] of biotin. Lab Interpretation (test code = 01643-6) Normal [facility]XR CHEST 2 [id number] 23:34:49Exam: Chest (2 Views), 06/07/2024 5:00 PM. Ordering Physician: LUKE CLARKE. History: sob . Technique: Two views of the chest. Comparison: Chest radiograph 07/11/2023. Findings: No focal consolidation. No pneumothorax or effusion. Normal size of thecardiac silhouette. No acute osseous finding.[facility] FriscoD-[id number] 23:30:44* Test Item Value Reference Range Interpretation Comments D-DIMER (test code = 0906798901) 0.22 See_Comment [Automated message] The system which generated this result transmitted reference range: <0.50 ?g/mL (FEU). The reference range was not used to interpret this result as normal/abnormal. KRYSTLE (test code = KRYSTLE) This test may be used in conjunction with a clinical pretest probability (PTP) assessment model to exclude venous thromboembolism (VTE) in patients suspected of deep venous thrombosis (DVT) and pulmonary embolism (PE) A D-Dimer value less than 0.50 ?g/ml (FEU) has a negative predicative value of 96 to 100% (95% CI)and 97 to 100% (95% CI) as an aid in the diagnosis of deep vein thrombosis (DVT) and pulmonary embolism when there is low or moderate pretest probability of PE or DVT. D-Dimer values are expressed in initial fibrinogen equivalent units (FEU)" The assay results should be used with other information, including the clinical context, in forming a diagnosis. Lab Interpretation (test code = 21607-0) Normal [facility]iscoCOMP. METABOLIC PANEL (00314)2024-06-07 23:28:22* Test Item Value Reference Range Interpretation Comme nts NA (test code = 5810299527) 136 mmol/L 135-145 K (test code = 7317382667) 4.1 mmol/L 3.5-5.0 CL (test code = 5901894933) 103 mmol/L 98-108 CO2 TOTAL (test code = 4088656425) 25 mmol/L 23-31 AGAP (test code = 0223410885) 8 2-16 BUN (test code = 9568970613) 19 mg/dL 7-23 GLUCOSE (test code = 9409119200) 89 mg/dL 70-110 CREATININE (test code = 2160-0) 0.99 mg/dL 0.60-1.25 TOTAL BILI (test code = 7339996060) 1.1 mg/dL 0.1-1.1 CALCIUM (test code = 2665101536) 9.3 mg/dL 8.6-10.6 T PROTEIN (test code = 8733387548) 8.8 g/dL 6.3-8.2 H ALBUMIN (test code = 2823928516) 4.8 g/dL 3.5-5.0 ALK PHOS (test code = 4935756078) 51 U/L 34-122 ALTv (test code = 1742-6) 27 U/L 5-50 AST(SGOT) (test code = 9851387809) 35 U/L 13-40 eGFR (test code = 51699-3) 92.2 mL/min/1.73m2 CKD-EPI eGFR (2020). Assuming creatinine has been stable day-to-day for at least three months, the eGFR indicates Category G1 (>= 90 mL/min/1.73 m2) Lab Interpretation (test code = 56674-3) Abnormal [facility] FriscoMagnesium2024-09-24 23:28:02* Test Item Value Reference Range Interpretation Comme nts MAGNESIUM (test code = 2896629368) 1.8 mg/dL 1.7-2.4 Lab Interpretation (test cod e = 06333-0) Normal [facility] FriscoLIPASE2024-09-24 23:28:02* Test Item Value Reference Range Interpretation Comme nts LIPASE (test code = 1591846135) 67 U/L 0-220 Lab Interpretation (test cod e = 14952-9) Normal [facility] FriscoCreatine [id number] 23:27:41* Test Item Value Reference Range Interpretation Comme nts CK (test code = 5422919487) 475 U/L 33-194 H Lab Interpretation (test cod e = 68678-3) Abnormal [facility]iscoCBC WITH [id number] 23:13:43* Test Item Value Reference Range Interpretation Comme nts WBC (test code = 6690-2) 7.55 4.20-10.70 RBC (test code = 789-8) 5.12 4.26-5.52 HGB (test code = 718-7) 15.5 g/dL 12.2-16.4 HCT (test code = 4544-3) 45.3 % 38.4-49.3 MCV (test code = 787-2) 88.5 fL 81.7-95.6 MCH (test code = 785-6) 30.3 pg 26.1-32.7 MCHC (test code = 786-4) 34.2 g/dL 31.2-35.0 RDW-SD (test code = 93332-5) 42.2 fL 38.5-51.6 RDW-CV (test code = 788-0) 13.0 % 12.1-15.4 PLT (test code = 777-3) 219 150-328 MPV (test code = 44216-0) 9.9 fL 9.8-13.0 NRBC/100 WBC (test code = 6675504456) 0.0 0.0-10.0 NRBC x10^3 (test code = 1004163736) See_Comment [Automated messa ge] The system which generated this result transmitted reference range: 10*3/?L. The reference range was not used to interpret this result as normal/abnormal. GRAN MAT (NEUT) % (test code = 770-8) 77.8 % IMM GRAN % (test code = 2417341884) 0.30 % LYMPH % (test code = 736-9) 15.6 % MONO % (test code = 5905-5) 5.7 % EOS % (test code = 713-8) 0.5 % BASO % (test code = 706-2) 0.1 % GRAN MAT x10^3(ANC) (test code = 1707489718) 5.87 10*3/uL 1.99-6.95 IMM GRAN x10^3 (test code = 9881139255) 0.00-0.06 LYMPH x10^3 (test code = 731-0) 1.18 10*3/uL 1.09-3.23 MONO x10^3 (test code = 742-7) 0.43 10*3/uL 0.36-1.02 EOS x10^3 (test code = 711-2) 0.04 10*3/uL 0.06-0.53 L BASO x10^3 (test code = 704-7) 0.01-0.09 Lab Interpretation (test code = 11926-2) Abnormal [facility] FriscoKiesha [id number] 15:49:54* Test Item Value Reference Range Interpretation Comme nts TROPONIN I (test code = 6556088216) <=0.034 KRYSTLE (test code = KRYSTLE) Reference [...] of biotin. Lab Interpretation (test code = 50229-4) Normal [facility]iscoCT ABDOMEN PELVIS W [id number] 15:06:25CT ABDOMEN PELVIS W CONTRAST HISTORY: 53 [...] hernia is seen. Degenerative changes atL5-S1 level noted.[facility]. Metabolic Panel (04148)2024-04-02 14:58:53* Test Item Value Reference Range Interpretation Comme nts NA (test code = 6666915392) 138 mmol/L 135-145 K (test code = 0837812702) 4.6 mmol/L 3.5-5.0 CL (test code = 3155882322) 105 mmol/L 98-108 CO2 TOTAL (test code = 9284117148) 28 mmol/L 23-31 AGAP (test code = 1218369399) 5 2-16 BUN (test code = 8598293157) 19 mg/dL 7-23 GLUCOSE (test code = 0195903325) 117 mg/dL 70-110 H CREATININE (test code = 2160-0) 0.91 mg/dL 0.60-1.25 TOTAL BILI (test code = 1973582032) 0.8 mg/dL 0.1-1.1 CALCIUM (test code = 0727155484) 9.2 mg/dL 8.6-10.6 T PROTEIN (test code = 8519459027) 8.4 g/dL 6.3-8.2 H ALBUMIN (test code = 4435303706) 4.4 g/dL 3.5-5.0 ALK PHOS (test code = 9678207223) 58 U/L 34-122 ALTv (test code = 1742-6) 28 U/L 5-50 AST(SGOT) (test code = 4080031031) 33 U/L 13-40 eGFR (test code = 83640-4) 102.0 mL/min/1.73m2 CKD-EPI eGFR (2020). Assuming creatinine has been stable day-to-day for at least three months, the eGFR indicates Category G1 (>= 90 mL/min/1.73 m2) Lab Interpretation (test code = 85346-1) [facility] BranchLipid [facility] (79132)(Total Cholesterol, Triglycerides, HDL)2024-04-02 14:58:53* Test Item Value Reference Range Interpretation Comme nts CHOL (test code = 3700214726) 190 mg/dL 120-200 HDL (test code = 1652031423) 37 mg/dL >=40 L HDLC RATIO (test code = 2183640596) 5.1 <=5.0 H TRIG (test code = 5599414436) 107 mg/dL 30-170 LDL CHOL (test code = 84346-1) 132 mg/dL <=160 VLDL (test code = 1205899696) 21 mg/dL 5-60 Lab Interpretation (test cod e = 95183-3) Abnormal [facility] FriscoMagnesium2024-07-20 14:58:32* Test Item Value Reference Range Interpretation Comme nts MAGNESIUM (test code = 9349383458) 1.9 mg/dL 1.7-2.4 Lab Interpretation (test cod e = 34390-4) Normal [facility] FriscoLipase2024-07-20 14:58:12* Test Item Value Reference Range Interpretation Comme nts LIPASE (test code = 5125626375) 384 U/L 0-220 H Lab Interpretation (test cod e = 20104-9) Abnormal [facility] FriscoCbc with [id number] 14:40:51* Test Item Value Reference Range Interpretation [...] 35.0 g/dL 31.2-35.0 RDW-SD (test code = 91740-6) 41.7 fL 38.5-51.6 RDW-CV (test code = 788-0) 13.3 % 12.1-15.4 PLT (test code = 777-3) 216 150-328 MPV (test code = 34714-6) 9.9 fL 9.8-13.0 NRBC/100 WBC (test code = 4775842778) 0.0 0.0-10.0 NRBC x10^3 (test code = 8356186243) See_Comment [Automated me ssage] The system which generated this result transmitted reference range: 10*3/?L. The reference range was not used to interpret this result as normal/abnormal. GRAN MAT (NEUT) % (test code = 770-8) 44.1 % IMM GRAN % (test code = 1616367554) 0.40 % LYMPH % (test code = 736-9) 45.4 % MONO % (test code = 5905-5) 8.4 % EOS % (test code = 713-8) 1.1 % BASO % (test code = 706-2) 0.6 % GRAN MAT x10^3(ANC) (test code = 6535563197) 2.31 10*3/uL 1.99-6.95 IMM GRAN x10^3 (test code = 9714710688) 0.00-0.06 LYMPH x10^3 (test code = 731-0) 2.38 10*3/uL 1.09-3.23 MONO x10^3 (test code = 742-7) 0.44 10*3/uL 0.36-1.02 EOS x10^3 (test code = 711-2) 0.06 10*3/uL 0.06-0.53 BASO x10^3 (test code = 704-7) 0.03 10*3/uL 0.01-0.09 [facility]iscoCOMP. METABOLIC PANEL (14654)2024-02-21 03:54:20* Test Item Value Reference Range Interpretation Comme nts NA (test code = 8664764937) 137 mmol/L 135-145 K (test code = 0956217485) 3.9 mmol/L 3.5-5.0 CL (test code = 2325843743) 106 mmol/L 98-108 CO2 TOTAL (test code = 8599209638) 26 mmol/L 23-31 AGAP (test code = 5379082093) 5 2-16 BUN (test code = 8901894116) 14 mg/dL 7-23 GLUCOSE (test code = 0951287122) 128 mg/dL 70-110 H CREATININE (test code = 2160-0) 0.98 mg/dL 0.60-1.25 TOTAL BILI (test code = 3257089358) 0.5 mg/dL 0.1-1.1 CALCIUM (test code = 6383072296) 8.6 mg/dL 8.6-10.6 T PROTEIN (test code = 2086598647) 7.4 g/dL 6.3-8.2 ALBUMIN (test code = 5789209995) 4.1 g/dL 3.5-5.0 ALK PHOS (test code = 0904460944) 66 U/L 34-122 ALTv (test code = 1742-6) 25 U/L 5-50 AST(SGOT) (test code = 5114657988) 39 U/L 13-40 eGFR (test code = 64071-9) 93.4 mL/min/1.73m2 CKD-EPI eGFR (2020). Assuming creatinine has been stable day-to-day for at least three months, the eGFR indicates Category G1 (>= 90 mL/min/1.73 m2) Lab Interpretation (test code = 81668-2) Abnormal [facility]iscoLIPASE2024-06-09 03:53:40* Test Item Value Reference Range Interpretation Comme nts LIPASE (test code = 8556195452) 117 U/L 0-220 Lab Interpretation (test cod e = 02010-8) Normal [facility] WITH [id number] 03:39:58* Test Item Value Reference Range Interpretation [...] 34.8 g/dL 31.2-35.0 RDW-SD (test code = 46433-0) 40.3 fL 38.5-51.6 RDW-CV (test code = 788-0) 12.7 % 12.1-15.4 PLT (test code = 777-3) 216 150-328 MPV (test code = 15938-2) 9.6 fL 9.8-13.0 L NRBC/100 WBC (test code = 7154330359) 0.0 0.0-10.0 NRBC x10^3 (test code = 2452512887) See_Comment [Automated messa ge] The system which generated this result transmitted reference range: 10*3/?L. The reference range was not used to interpret this result as normal/abnormal. GRAN MAT (NEUT) % (test code = 770-8) 32.8 % IMM GRAN % (test code = 3127286377) 0.20 % LYMPH % (test code = 736-9) 58.5 % MONO % (test code = 5905-5) 6.6 % EOS % (test code = 713-8) 1.4 % BASO % (test code = 706-2) 0.5 % GRAN MAT x10^3(ANC) (test code = 8050096267) 1.94 10*3/uL 1.99-6.95 L IMM GRAN x10^3 (test code = 2968550951) 0.00-0.06 LYMPH x10^3 (test code = 731-0) 3.46 10*3/uL 1.09-3.23 H MONO x10^3 (test code = 742-7) 0.39 10*3/uL 0.36-1.02 EOS x10^3 (test code = 711-2) 0.08 10*3/uL 0.06-0.53 BASO x10^3 (test code = 704-7) 0.03 10*3/uL 0.01-0.09 Lab Interpretation (test code = 09915-8) Abnormal [facility] with [id number] 03:17:11* Test Item Value Reference Range Interpretation [...] 34.8 g/dL 31.2-35.0 RDW-SD (test code = 23201-7) 39.9 fL 38.5-51.6 RDW-CV (test code = 788-0) 12.7 % 12.1-15.4 PLT (test code = 777-3) 240 150-328 MPV (test code = 82776-7) 9.8 fL 9.8-13.0 NRBC/100 WBC (test code = 8339610639) 0.0 0.0-10.0 NRBC x10^3 (test code = 1683921103) See_Comment [Automated messa ge] The system which generated this result transmitted reference range: 10*3/?L. The reference range was not used to interpret this result as normal/abnormal. GRAN MAT (NEUT) % (test code = 770-8) 31.3 % IMM GRAN % (test code = 1736800148) 0.00 % LYMPH % (test code = 736-9) 57.3 % MONO % (test code = 5905-5) 9.3 % EOS % (test code = 713-8) 1.6 % BASO % (test code = 706-2) 0.5 % GRAN MAT x10^3(ANC) (test code = 3363484609) 1.94 10*3/uL 1.99-6.95 L IMM GRAN x10^3 (test code = 5961830553) 0.00-0.06 LYMPH x10^3 (test code = 731-0) 3.56 10*3/uL 1.09-3.23 H MONO x10^3 (test code = 742-7) 0.58 10*3/uL 0.36-1.02 EOS x10^3 (test code = 711-2) 0.10 10*3/uL 0.06-0.53 BASO x10^3 (test code = 704-7) 0.03 10*3/uL 0.01-0.09 Lab Interpretation (test code = 45645-3) Abnormal [facility]. Metabolic Panel (93448)2023-12-10 03:13:49* Test Item Value Reference Range Interpretation Comme nts NA (test code = 8642142829) 141 mmol/L 135-145 K (test code = 0187047227) 4.3 mmol/L 3.5-5.0 CL (test code = 5407260726) 107 mmol/L 98-108 CO2 TOTAL (test code = 9747412173) 26 mmol/L 23-31 AGAP (test code = 1558575859) 8 2-16 BUN (test code = 4206437049) 20 mg/dL 7-23 GLUCOSE (test code = 0553528790) 123 mg/dL 70-110 H CREATININE (test code = 2160-0) 0.95 mg/dL 0.60-1.25 TOTAL BILI (test code = 3153718420) 0.8 mg/dL 0.1-1.1 CALCIUM (test code = 2414082028) 9.0 mg/dL 8.6-10.6 T PROTEIN (test code = 7566484880) 8.4 g/dL 6.3-8.2 H ALBUMIN (test code = 8758442008) 4.3 g/dL 3.5-5.0 ALK PHOS (test code = 2390084004) 58 U/L 34-122 ALTv (test code = 1742-6) 33 U/L 5-50 AST(SGOT) (test code = 5250833053) 52 U/L 13-40 H eGFR (test code = 61410-9) 96.9 mL/min/1.73m2 CKD-EPI eGFR (2020). Assuming creatinine has been stable day-to-day for at least three months, the eGFR indicates Category G1 (>= 90 mL/min/1.73 m2) Lab Interpretation (test code = 56777-8) [facility]normal [facility]CT ABD[facility] PELVIS W [id number] 03:12:08CT ABDOMEN PELVIS W CONTRAST HISTORY: 53 [...] suspicious lytic or sclerotic bony lesions.[facility] BASIC METABOLIC PANEL (NA, K, CL, CO2, GLUCOSE, BUN, CREATININE, CA)2023-08-04 03:27:21* Test Item Value Reference Range Interpretation Comme nts NA (test code = 8819462540) 140 mmol/L 135-145 K (test code = 4947600809) 3.9 mmol/L 3.5-5.0 CL (test code = 2809062627) 104 mmol/L 98-108 CO2 TOTAL (test code = 2661376923) 28 mmol/L 23-31 AGAP (test code = 8137105897) 8 2-16 BUN (test code = 5996683818) 15 mg/dL 7-23 GLUCOSE (test code = 3186693029) 155 mg/dL 70-110 H CREATININE (test code = 9455733422) 1.37 mg/dL 0.60-1.25 H CALCIUM (test code = 8972449824) 9.5 mg/dL 8.6-10.6 eGFR (test code = 55144-6) 62.8 mL/min/1.73m2 CKD-EPI eGFR (2020). Assuming creatinine has been stable day-to-day for at least three months, the eGFR indicates Category G2 (60 - 89 mL/min/1.73 m2) Lab Interpretation (test code = 59195-5) Abnormal [facility]iscoCB WITH [id number] 03:12:39* Test Item Value Reference Range Interpretation Comme nts WBC (test code = 6690-2) 6.98 See_Comment [Automated messa ge] The system which generated this result transmitted reference range: 4.20 - 10.70 10*3/?L. The reference range was not used to interpret this result as normal/abnormal. RBC (test code = 789-8) 5.27 See_Comment [Automated [employer] ge] The system which generated this result [...] g/dL 31.2-35.0 H RDW-SD (test code = 47483-8) 38.1 fL 38.5-51.6 L RDW-CV (test code = 788-0) 12.3 % 12.1-15.4 PLT (test code = 777-3) 238 See_Comment [Automated [employer] ge] The system which generated this result transmitted reference range: 150 - 328 10*3/?L. The reference range was not used to interpret this result as normal/abnormal. MPV (test code = 75498-9) 9.8 fL 9.8-13.0 NRBC/100 WBC (test code = 6494167624) 0.0 See_Comment [Automated [employer] ssage] The system which generated this result transmitted reference range: 0.0 - 10.0 /100 WBCs. The reference range was not used to interpret this result as normal/abnormal. NRBC x10^3 (test code = 7582184981) See_Comment [Automated [employer] ge] The system which generated this result transmitted reference range: 10*3/?L. The reference range was not used to interpret this result as normal/abnormal. GRAN MAT (NEUT) % (test code = 770-8) 37.8 % IMM GRAN % (test code = 4557020783) 0.30 % LYMPH % (test code = 736-9) 52.7 % MONO % (test code = 5905-5) 7.7 % EOS % (test code = 713-8) 1.1 % BASO % (test code = 706-2) 0.4 % GRAN MAT x10^3(ANC) (test code = 9604304320) 2.63 10*3/uL 1.99-6.95 IMM GRAN x10^3 (test code = 0304669400) 0.00-0.06 LYMPH x10^3 (test code = 731-0) 3.68 10*3/uL 1.09-3.23 H MONO x10^3 (test code = 742-7) 0.54 10*3/uL 0.36-1.02 EOS x10^3 (test code = 711-2) 0.08 10*3/uL 0.06-0.53 BASO x10^3 (test code = 704-7) 0.03 10*3/uL 0.01-0.09 Lab Interpretation (test code = 44099-6) Abnormal [facility]iscoTROP[facility]IN [id number] 17:24:34* Test Item Value Reference Range Interpretation Comme nts TROPONIN I (test code = 2114748667) 0.018 ng/mL <=0.034 KRYSTLE (test code = [...] of biotin. Lab Interpretation (test code = 00571-5) Normal [facility]iscoMAGNESIUM2023-11-11 17:13:15* Test Item Value Reference Range Interpretation Comme nts MAGNESIUM (test code = 2291472338) 1.9 mg/dL 1.7-2.4 Lab Interpretation (test cod e = 38692-7) Normal [facility]iscoCOM. METABOLIC PANEL (29469)2023-07-25 17:12:55* Test Item Value Reference Range Interpretation Comme nts NA (test code = 4427492012) 141 mmol/L 135-145 K (test code = 9156159726) 3.8 mmol/L 3.5-5.0 CL (test code = 1237935686) 106 mmol/L 98-108 CO2 TOTAL (test code = 4073166487) 27 mmol/L 23-31 AGAP (test code = 6061738820) 8 2-16 BUN (test code = 5608416646) 14 mg/dL 7-23 GLUCOSE (test code = 2735582316) 124 mg/dL 70-110 H CREATININE (test code = 8554026724) 0.93 mg/dL 0.60-1.25 TOTAL BILI (test code = 3077696589) 0.8 mg/dL 0.1-1.1 CALCIUM (test code = 7388336345) 9.3 mg/dL 8.6-10.6 T PROTEIN (test code = 5342593039) 8.2 g/dL 6.3-8.2 ALBUMIN (test code = 1150481729) 4.4 g/dL 3.5-5.0 ALK PHOS (test code = 8990967964) 49 U/L 34-122 ALTv (test code = 1742-6) 20 U/L 5-50 AST(SGOT) (test code = 9351869272) 28 U/L 13-40 eGFR (test code = 91813-2) 100.0 mL/min/1.73m2 CKD-EPI eGFR (2020). Assuming creatinine has been stable day-to-day for at least three months, the eGFR indicates Category G1 (>= 90 mL/min/1.73 m2) Lab Interpretation (test code = 18639-4) Abnormal [facility]iscoLIPASE2023-11-11 17:12:35* Test Item Value Reference Range Interpretation Comme nts LIPASE (test code = 5517255616) 109 U/L 0-220 Lab Interpretation (test cod e = 51109-0) Normal [facility]CB WITH [id number] 16:59:59* Test Item Value Reference Range Interpretation [...] g/dL 31.2-35.0 H RDW-SD (test code = 00946-6) 39.2 fL 38.5-51.6 RDW-CV (test code = 788-0) 12.5 % 12.1-15.4 PLT (test code = 777-3) 207 See_Comment [Automated [employer] ge] The system which generated this result transmitted reference range: 150 - 328 10*3/?L. The reference range was not used to interpret this result as normal/abnormal. MPV (test code = 49166-9) 10.0 fL 9.8-13.0 NRBC/100 WBC (test code = 8040884942) 0.0 See_Comment [Automated [employer] ssage] The system which generated this result transmitted reference range: 0.0 - 10.0 /100 WBCs. The reference range was not used to interpret this result as normal/abnormal. NRBC x10^3 (test code = 1493524183) See_Comment [Automated [employer]] The system which generated this result transmitted reference range: 10*3/?L. The reference range was not used to interpret this result as normal/abnormal. GRAN MAT (NEUT) % (test code = 770-8) 45.8 % IMM GRAN % (test code = 9613236566) 0.20 % LYMPH % (test code = 736-9) 42.9 % MONO % (test code = 5905-5) 9.9 % EOS % (test code = 713-8) 0.8 % BASO % (test code = 706-2) 0.4 % GRAN MAT x10^3(ANC) (test code = 9156712251) 2.37 10*3/uL 1.99-6.95 IMM GRAN x10^3 (test code = 3505122103) 0.00-0.06 LYMPH x10^3 (test code = 731-0) 2.22 10*3/uL 1.09-3.23 MONO x10^3 (test code = 742-7) 0.51 10*3/uL 0.36-1.02 EOS x10^3 (test code = 711-2) 0.04 10*3/uL 0.06-0.53 L BASO x10^3 (test code = 704-7) 0.01-0.09 Lab Interpretation (test code = 04120-8) Abnormal [facility] FriscoLIPID PANEL (39841)(TOTAL CHOLESTEROL, TRIGLYCERIDES, HDL)2023-07-24 21:48:18* Test Item Value Reference Range Interpretation Comme nts CHOL (test code = 7860188196) 220 mg/dL 120-200 H HDL (test code = 6714229171) 31 mg/dL >=40 L HDLC RATIO (test code = 7427834308) 7.1 <=5.0 H TRIG (test code = 1489517866) 134 mg/dL 30-170 LDL CHOL (test code = 45419-5) 162 mg/dL <=160 H VLDL (test code = 5852374817) 27 mg/dL 5-60 Lab Interpretation (test cod e = 70432-0) Abnormal [facility]iscoComplete Metabolic Kxaed4090-65-54 20:48:07* Test Item Value Reference Range Interpretation Comme nts NA (test code = 2963691681) 141 mmol/L 135-145 K (test code = 9891112254) 3.8 mmol/L 3.5-5.0 CL (test code = 1341273107) 103 mmol/L 98-108 CO2 TOTAL (test code = 5147052592) 29 mmol/L 23-31 AGAP (test code = 9449787626) 9 2-16 BUN (test code = 2115311261) 14 mg/dL 7-23 GLUCOSE (test code = 5950549464) 102 mg/dL 70-110 CREATININE (test code = 9321776997) 0.85 mg/dL 0.60-1.25 TOTAL BILI (test code = 4343716537) 1.2 mg/dL 0.1-1.1 H CALCIUM (test code = 4799422414) 10.0 mg/dL 8.6-10.6 T PROTEIN (test code = 9272173990) 8.9 g/dL 6.3-8.2 H ALBUMIN (test code = 1023785357) 5.0 g/dL 3.5-5.0 ALK PHOS (test code = 3700013995) 52 U/L 34-122 ALTv (test code = 1742-6) 22 U/L 5-50 AST(SGOT) (test code = 2323683901) 45 U/L 13-40 H eGFR (test code = 10805-1) 105.9 mL/min/1.73m2 CKD-EPI eGFR (2020). Assuming creatinine has been stable day-to-day for at least three months, the eGFR indicates Category G1 (>= 90 mL/min/1.73 m2) Lab Interpretation (test code = 13687-6) [facility] [id number] 20:48:07* Test Item Value Reference Range Interpretation Comme nts LIPASE (test code = 8674779219) 134 U/L 0-220 Lab Interpretation (test cod e = 46665-9) Normal [facility] [place] with [id number] 20:20:02* Test Item Value Reference Range Interpretation Comme nts WBC (test code = 6690-2) 6.91 See_Comment [Automated [employer]] The system which generated this result transmitted reference range: 4.20 - 10.70 10*3/?L. The reference range was not used to interpret this result as normal/abnormal. RBC (test code = 789-8) 5.49 See_Comment [Automated [employer]] The system which generated this result transmitted [...] 34.7 g/dL 31.2-35.0 RDW-SD (test code = 38208-9) 40.0 fL 38.5-51.6 RDW-CV (test code = 788-0) 12.7 % 12.1-15.4 PLT (test code = 777-3) 228 See_Comment [Automated [employer]] The system which generated this result transmitted reference range: 150 - 328 10*3/?L. The reference range was not used to interpret this result as normal/abnormal. MPV (test code = 99154-7) 9.5 fL 9.8-13.0 L NRBC/100 WBC (test code = 3856081644) 0.0 See_Comment [Automated [employer]] The system which generated this result transmitted reference range: 0.0 - 10.0 /100 WBCs. The reference range was not used to interpret this result as normal/abnormal. NRBC x10^3 (test code = 3496729379) See_Comment [Automated [employer]] The system which generated this result transmitted reference range: 10*3/?L. The reference range was not used to interpret this result as normal/abnormal. GRAN MAT (NEUT) % (test code = 770-8) 46.9 % IMM GRAN % (test code = 9645371444) 0.30 % LYMPH % (test code = 736-9) 42.3 % MONO % (test code = 5905-5) 9.8 % EOS % (test code = 713-8) 0.4 % BASO % (test code = 706-2) 0.3 % GRAN MAT x10^3(ANC) (test code = 3065735170) 3.24 10*3/uL 1.99-6.95 IMM GRAN x10^3 (test code = 9087295429) 0.00-0.06 LYMPH x10^3 (test code = 731-0) 2.92 10*3/uL 1.09-3.23 MONO x10^3 (test code = 742-7) 0.68 10*3/uL 0.36-1.02 EOS x10^3 (test code = 711-2) 0.03 10*3/uL 0.06-0.53 L BASO x10^3 (test code = 704-7) 0.01-0.09 Lab Interpretation (test code = 55207-1) Abnormal [facility] [place] ABD PELVIS [id number] 08:28:00 [facility] [facility] : 1970 Sex: M PatientName: NOAH PUTNAM Unit No: [id number] EXAMS: CPT CODE: [id number] CT ABD PELVIS W/CONT 60841 EXAM: - CT ABD PELVIS W/CONT INDICATION: pancreatitis Location code:C3 TECHNIQUE: No oral contrast wasgiven Axial CT images of the abdomen and [...] extraluminal fluid. IMPRESSION: 1. No acute abnormality. [facility] NAME: NOAH PUTNAM PHYS: [place] [address] : 1970 AGE: 52 SEX: M LOC: [email or web address] PHONE #: [phone] EXAM DATE: 07/23/2023 STATUS: REG ER FAX #: [phone] RAD #: D/C DT PAGE 1 Signed Report (CONTINUED) Patient Name: NOAH PUTNAM Unit No: [id number] EXAMS: CPT CODE: [id number] CT ABD PELVIS W/CONT 03755 (Continued) at 0828 Reported and signed by: Kiara Meza MD CC: Jessie Paul MD Technologist: Jovanni GREEN CTDI: DLP: Trnscrpt: 07/23/2023 (0828) t.SDR.CB5 [facility] NAME: NOAH PUTNAM PHYS: INGA. [place] [address] : 1970 AGE: 52 SEX: M LOC: [email or web address] PHONE #:[phone] EXAM DATE: 07/23/2023 STATUS: REG ER FAX #: [phone] RAD #: D/C DT PAGE 2 Signed Report Patient Name: NOAH PUTNAM Unit No: [id number] EXAMS: CPT CODE: [id number] CT ABD PELVIS W/CONT 51696 (Continued) Orig Print D/T: S: 07/23/2023 (0831) [facility] NAME: NOAH PUTNAM [address] PHYS: [place] [address] : 1970 AGE: 52 SEX: M LOC: [employer] PHONE #: [phone] EXAM DATE: 07/23/2023 STATUS: REG ER FAX #: [phone] RAD #: D/C DT PAGE 3 Signed ReportURINALYSIS [id number] 06:32:00* Test Item Value Reference Range Interpretation [...] /mm3 NEGATIVE SOURCE OF URINE: CLEAN CATCHUA [id number] 06:32:00* Test Item Value Reference Range Interpretation Comme nts UA RBC (test code = RBCU) 3-5 RBC/HPF 0-3 A UA WBC (test code = XWBCU) 0-3 WBC/HPF 0-5 UA EPITHELIAL CELLS (test co de = EPIU) RARE EPI/HPF FEW UA BACTERIA (test code = XBACU) FEW NONE UA MUCUS (test code = MUCU) MODERATE #/LPF NONE A SOURCE OF URINE: CLEAN CATCHBASIC METABOLIC [id number] 06:31:00* Test Item Value Reference Range Interpretation [...] CA) 9.5 MG/DL 8.4-10.2 N HEPATIC FUNCTION [id number] 06:31:00* Test Item Value Reference Range Interpretation Comme nts TOTAL PROTEIN (test code = PROT) 9.0 G/DL 6.2-7.6 H Ortho Clinical D iagnostic has made us aware of newinformation regarding the potential interference ofEltrombopag (a bone marrow stimulant used to treatthrombocytonmenia and aplastic anemia) with specific assayson the [employer] 5600 of which Total Protein is one [...] code = ALKP) 57 UNITS/L 38-126 N [id number] 06:31:00* Test Item Value Reference Range Interpretation Comme nts LIPASE (test code = LIP) 94 UNITS/L 23-300 N [id number] 06:31:00* Test Item Value Reference Range Interpretation Comme nts TROPONIN-I (test code = TROPI) 0.019 NG/ML 0.012-0.033 N PROTHROMBIN [id number] 06:07:00* Test Item Value Reference Range Interpretation [...] systemic embolism. 3.0 - 4.5 CBC W/O [id number] 06:00:00* Test Item Value Reference Range Interpretation [...] = NRBC#) 0.00 K/mm3 0.0-0.1 N Troponin [id number] 02:46:51* Test Item Value Reference Range Interpretation Comme nts TROPONIN I (test code = 6102060781) 0.017 ng/mL <=0.034 KRYSTLE (test code = [...] of biotin. Lab Interpretation (test code = 66869-2) [facility] 02:35:28* Test Item Value Reference Range Interpretation Comme nts NA (test code = 8529198741) 138 mmol/L 135-145 K (test code = 1739753282) 3.7 mmol/L 3.5-5.0 CL (test code = 7722849263) 106 mmol/L 98-108 CO2 TOTAL (test code = 4040429552) 24 mmol/L 23-31 AGAP (test code = 6616274114) 8 2-16 BUN (test code = 8962044454) 11 mg/dL 7-23 GLUCOSE (test code = 3598949605) 165 mg/dL 70-110 H CREATININE (test code = 7773042042) 0.89 mg/dL 0.60-1.25 TOTAL BILI (test code = 0064119591) 0.2 mg/dL 0.1-1.1 CALCIUM (test code = 1075057622) 9.3 mg/dL 8.6-10.6 T PROTEIN (test code = 8878767930) 7.0 g/dL 6.3-8.2 ALBUMIN (test code = 1525444413) 4.0 g/dL 3.5-5.0 ALK PHOS (test code = 8109796925) 59 U/L 34-122 ALTv (test code = 1742-6) 23 U/L 5-50 AST(SGOT) (test code = 6344816616) 27 U/L 13-40 eGFR (test code = 0922165503) 90.5 mL/min/1.73m2 KRYSTLE (test code = KRYSTLE) [...] imaging tests). Lab Interpretation (test code = 21061-1) Abnormal [facility] with [id number] 02:26:10* Test Item Value Reference Range Interpretation Comme nts WBC (test code = 6690-2) 5.78 See_Comment [Automated messa ge] The system which generated this result transmitted reference range: 4.20 - 10.70 10*3/?L. The reference range was not used to interpret this result as normal/abnormal. RBC (test code = 789-8) 4.59 See_Comment [Automated [employer] ge] The system which generated this result [...] g/dL 31.2-35.0 H RDW-SD (test code = 32408-0) 38.6 fL 38.5-51.6 RDW-CV (test code = 788-0) 12.6 % 12.1-15.4 PLT (test code = 777-3) 200 See_Comment [Automated [employer] ge] The system which generated this result transmitted reference range: 150 - 328 10*3/?L. The reference range was not used to interpret this result as normal/abnormal. MPV (test code = 45264-5) 9.6 fL 9.8-13.0 L NRBC/100 WBC (test code = 4225167172) 0.0 See_Comment [Automated [employer] ssage] The system which generated this result transmitted reference range: 0.0 - 10.0 /100 WBCs. The reference range was not used to interpret this result as normal/abnormal. NRBC x10^3 (test code = 8599802030) See_Comment [Automated [employer] ge] The system which generated this result transmitted reference range: 10*3/?L. The reference range was not used to interpret this result as normal/abnormal. GRAN MAT (NEUT) % (test code = 770-8) 36.8 % IMM GRAN % (test code = 6020850668) 0.20 % LYMPH % (test code = 736-9) 54.7 % MONO % (test code = 5905-5) 7.1 % EOS % (test code = 713-8) 0.9 % BASO % (test code = 706-2) 0.3 % GRAN MAT x10^3(ANC) (test code = 3128450276) 2.13 10*3/uL 1.99-6.95 IMM GRAN x10^3 (test code = 9751952758) 0.00-0.06 LYMPH x10^3 (test code = 731-0) 3.16 10*3/uL 1.09-3.23 MONO x10^3 (test code = 742-7) 0.41 10*3/uL 0.36-1.02 EOS x10^3 (test code = 711-2) 0.05 10*3/uL 0.06-0.53 L BASO x10^3 (test code = 704-7) 0.01-0.09 Lab Interpretation (test code = 47200-1) [facility] (67942)2023-07-03 10:47:01* Test Item Value Reference Range Interpretation Comme nts NA (test code = 2010654092) 138 mmol/L 135-145 K (test code = 1667227298) 4.5 mmol/L 3.5-5.0 Slight hemolysis CL (test code = 3979514103) 103 mmol/L 98-108 CO2 TOTAL (test code = 9224239964) 23 mmol/L 23-31 AGAP (test code = 3312548009) 12 2-16 BUN (test code = 4017260035) 16 mg/dL 7-23 Slight hemolysis GLUCOSE (test code = 1790000413) 142 mg/dL 70-110 H CREATININE (test code = 7038861316) 0.99 mg/dL 0.60-1.25 TOTAL BILI (test code = 7393846957) 1.2 mg/dL 0.1-1.1 H CALCIUM (test code = 1698274018) 9.6 mg/dL 8.6-10.6 T PROTEIN (test code = 7573454541) 8.1 g/dL 6.3-8.2 ALBUMIN (test code = 6930209671) 4.6 g/dL 3.5-5.0 ALK PHOS (test code = 5470245010) 51 U/L 34-122 Slight hemolysis ALTv (test code = 1742-6) 26 U/L 5-50 AST(SGOT) (test code = 2703580937) 32 U/L 13-40 Slight hemolysis eGFR (test code = 8191772040) 80.0 mL/min/1.73m2 KRYSTLE (test code = KRYSTLE) [...] imaging tests). Lab Interpretation (test code = 38834-3) [facility]23-[facility]-20 10:47:01* Test Item Value Reference Range Interpretation Comme nts LIPASE (test code = 1339900634) 955 U/L 0-220 H Lab Interpretation (test cod e = 94193-5) Abnormal [facility] WITH [id number] 10:27:34* Test Item Value Reference Range Interpretation [...] 34.5 g/dL 31.2-35.0 RDW-SD (test code = 54038-9) 39.4 fL 38.5-51.6 RDW-CV (test code = 788-0) 12.3 % 12.1-15.4 PLT (test code = 777-3) 226 See_Comment [Automated messa ge] The system which generated this result transmitted reference range: 150 - 328 10*3/?L. The reference range was not used to interpret this result as normal/abnormal. MPV (test code = 99179-9) 9.6 fL 9.8-13.0 L NRBC/100 WBC (test code = 0697255007) 0.0 See_Comment [Automated [employer] ssage] The system which generated this result transmitted reference range: 0.0 - 10.0 /100 WBCs. The reference range was not used to interpret this result as normal/abnormal. NRBC x10^3 (test code = 4569226936) See_Comment [Automated messa ge] The system which generated this result transmitted reference range: 10*3/?L. The reference range was not used to interpret this result as normal/abnormal. GRAN MAT (NEUT) % (test code = 770-8) 54.9 % IMM GRAN % (test code = 5267368919) 0.20 % LYMPH % (test code = 736-9) 36.2 % MONO % (test code = 5905-5) 7.9 % EOS % (test code = 713-8) 0.5 % BASO % (test code = 706-2) 0.3 % GRAN MAT x10^3(ANC) (test code = 7410305211) 3.63 10*3/uL 1.99-6.95 IMM GRAN x10^3 (test code = 4964916147) 0.00-0.06 LYMPH x10^3 (test code = 731-0) 2.39 10*3/uL 1.09-3.23 MONO x10^3 (test code = 742-7) 0.52 10*3/uL 0.36-1.02 EOS x10^3 (test code = 711-2) 0.03 10*3/uL 0.06-0.53 L BASO x10^3 (test code = 704-7) 0.01-0.09 Lab Interpretation (test code = 95400-3) Abnormal [facility] PELVIS W/[id number] 00:06:00 [facility] 1970 Sex: M Patient Name: NOAH PUTNAM Unit No: [id number] EXAMS: CPT CODE: [id number] CT ABD PELVIS W/CONT 12727 Reason: diffuse abd pain CT Scan of [...] follow up may be indicated to completely characterizethese cystic lesions based on patient risk factors. [...] Prostate gland is mildly enlarged. There is anodular component from the prostate gland measuring 1.7 cm protruding into the bladder base. GASTROINTESTINAL: No significant findings. The appendix is unremarkable. IMPRESSION: No acute findings in the abdomen or pelvis. Mildly enlarged prostate with a nodular component protruding into the bladderbase. Correlation with PSA is recommended. at 0006 Reported and signed by: Jennifer Bass MD CC: Jessie Gleason DO; [facility] Technologist: Cory Romero CT Trscrpt Dt/ (0006)t.SDR.MA50 Orig Print D/T: S: 07/02/2023 (0009) CTDI: DLP: [facility] FSED NAME: NOAH PUTNAM [address] [place] [address] PHYS: MANOLO.Naomi - Jessie Gleason [address] : 1970 AGE: 52 SEX: M [place], [place] [address] LOC: D.PER PHONE #: [phone] EXAM DATE: 07/01/2023 STATUS: REG ER FAX #: RAD NO: DCDt: PAGE 1 Signed ReportTROP-I HIGH [id number] 23:55:00* Test Item Value Reference Range Interpretation [...] troponin from other clinical conditions, the Fourth [place] Definition of Myocardial Infarction stresses clinical assessment and demonstration of a rise and/or fall in serial troponin results above the upper reference limit.Results of this assay method may be falsely depressed orelevated if patient is taking high doses of Biotin. BASIC METABOLIC [id number] 23:55:00* Test Item Value Reference Range Interpretation [...] CA) 9.3 MG/DL 8.7-10.5 N HEPATIC FUNCTION [id number] 23:55:00* Test Item Value Reference Range Interpretation [...] code = ALKP) 60 Units/L 50-136 N [id number] 23:55:00* Test Item Value Reference Range Interpretation Comme nts LIPASE (test code = LIP) 259 U/L 16-77 H New Reference Ranges of 16-77 U/L please reviewrevised from 73-393 U/L on 06/30/2023 CBC W/AUTO [id number] 23:24:00* Test Item Value Reference Range Interpretation [...] = BA#) 0.02 x10 3/uL 0.0-0.2 N [id number] 12:29:00* Test Item Value Reference Range Interpretation Comme [facility] LIPASE (test code = LIP) 73 Units/L 73-393 N [id number] 17:24:56* Test Item Value Reference Range Interpretation Comme [facility] LIPASE (test code = 0472047010) 283 U/L 0-220 H Lab Interpretation (test cod e = 53347-6) Abnormal [facility] METABOLIC PANEL (NA, K, CL, CO2, GLUCOSE, BUN, CREATININE, CA)2023-04-22 17:24:35* Test Item Value Reference Range Interpretation Comme [facility] NA (test code = 2792059258) 139 mmol/L 135-145 K (test code = 5167479976) 4.0 mmol/L 3.5-5.0 CL (test code = 6788287134) 106 mmol/L 98-108 CO2 TOTAL (test code = 7451475312) 25 mmol/L 23-31 AGAP (test code = 3848113980) 8 2-16 BUN (test code = 0867739820) 21 mg/dL 7-23 GLUCOSE (test code = 0317981760) 110 mg/dL 70-110 CREATININE (test code = 5097260214) 1.06 mg/dL 0.60-1.25 CALCIUM (test code = 8793130905) 8.1 mg/dL 8.6-10.6 L eGFR (test code = 6451943212) 74.0 mL/min/1.73m2 KRYSTLE (test code = KRYSTLE) [...] imaging tests). Lab Interpretation (test code = 09012-8) Abnormal [facility] [id number] 13:57:28* Test Item Value Reference Range Interpretation Comme nts CK (test code = 7688977952) 635 U/L 33-194 H Lab Interpretation (test cod e = 15304-3) Abnormal [facility] METABOLIC PANEL (NA, K, CL, CO2, GLUCOSE, BUN, CREATININE, CA)2023-04-22 13:23:02* Test Item Value Reference Range Interpretation Comme nts NA (test code = 3372374250) 141 mmol/L 135-145 K (test code = 9555660591) 4.0 mmol/L 3.5-5.0 CL (test code = 6157737565) 107 mmol/L 98-108 CO2 TOTAL (test code = 4130867845) 27 mmol/L 23-31 AGAP (test code = 6438654504) 7 2-16 BUN (test code = 8328461161) 22 mg/dL 7-23 GLUCOSE (test code = 2201409607) 94 mg/dL 70-110 CREATININE (test code = 7919434180) 1.26 mg/dL 0.60-1.25 H CALCIUM (test code = 6107209972) 8.3 mg/dL 8.6-10.6 L eGFR (test code = 4970283236) 60.6 mL/min/1.73m2 KRYSTLE (test code = KRYSTLE) [...] imaging tests). Lab Interpretation (test code = 77268-8) Abnormal [facility]2023-08-09 13:22:41* Test Item Value Reference Range Interpretation Comme nts LIPASE (test code = 9302996619) 897 U/L 0-220 H Lab Interpretation (test cod e = 81046-2) Abnormal [facility] MET[facility]OLIC PANEL (66534)2023-04-22 09:43:42* Test Item Value Reference Range Interpretation Comme nts NA (test code = 1394258111) 140 mmol/L 135-145 K (test code = 6265328440) 3.7 mmol/L 3.5-5.0 CL (test code = 9671952941) 103 mmol/L 98-108 CO2 TOTAL (test code = 5013069605) 24 mmol/L 23-31 AGAP (test code = 8359385329) 13 2-16 BUN (test code = 9665301814) 24 mg/dL 7-23 H GLUCOSE (test code = 3293140717) 114 mg/dL 70-110 H CREATININE (test code = 8567721769) 1.42 mg/dL 0.60-1.25 H TOTAL BILI (test code = 4807750726) 0.9 mg/dL 0.1-1.1 CALCIUM (test code = 0216581978) 9.5 mg/dL 8.6-10.6 T PROTEIN (test code = 2083204225) 9.2 g/dL 6.3-8.2 H ALBUMIN (test code = 6141946712) 4.9 g/dL 3.5-5.0 ALK PHOS (test code = 6141931800) 66 U/L 34-122 ALTv (test code = 1742-6) 25 U/L 5-50 AST(SGOT) (test code = 3430740559) 37 U/L 13-40 eGFR (test code = 6753050722) 52.8 mL/min/1.73m2 KRYSTLE (test code = KRYSTLE) [...] imaging tests). Lab Interpretation (test code = 25314-3) Abnormal [facility] WITH [id number] 09:33:37* Test Item Value Reference Range Interpretation Comme nts WBC (test code = 6690-2) 8.53 See_Comment [Automated [employer]] The system which generated this result transmitted reference range: 4.20 - 10.70 10*3/?L. The reference range was not used to interpret this result as normal/abnormal. RBC (test code = 789-8) 5.60 See_Comment H [Automated [employer]] The system which generated this result transmitted [...] g/dL 31.2-35.0 H RDW-SD (test code = 15315-3) 40.1 fL 38.5-51.6 RDW-CV (test code = 788-0) 13.0 % 12.1-15.4 PLT (test code = 777-3) 267 See_Comment [Automated messa ge] The system which generated this result transmitted reference range: 150 - 328 10*3/?L. The reference range was not used to interpret this result as normal/abnormal. MPV (test code = 26380-7) 9.6 fL 9.8-13.0 L NRBC/100 WBC (test code = 3148329268) 0.0 See_Comment [Automated [employer] ssage] The system which generated this result transmitted reference range: 0.0 - 10.0 /100 WBCs. The reference range was not used to interpret this result as normal/abnormal. NRBC x10^3 (test code = 6497102902) See_Comment [Automated messa ge] The system which generated this result transmitted reference range: 10*3/?L. The reference range was not used to interpret this result as normal/abnormal. GRAN MAT (NEUT) % (test code = 770-8) 44.5 % IMM GRAN % (test code = 6800312782) 0.20 % LYMPH % (test code = 736-9) 43.4 % MONO % (test code = 5905-5) 10.7 % EOS % (test code = 713-8) 0.8 % BASO % (test code = 706-2) 0.4 % GRAN MAT x10^3(ANC) (test code = 2651515962) 3.80 10*3/uL 1.99-6.95 IMM GRAN x10^3 (test code = 0552874637) 0.00-0.06 LYMPH x10^3 (test code = 731-0) 3.70 10*3/uL 1.09-3.23 H MONO x10^3 (test code = 742-7) 0.91 10*3/uL 0.36-1.02 EOS x10^3 (test code = 711-2) 0.07 10*3/uL 0.06-0.53 BASO x10^3 (test code = 704-7) 0.03 10*3/uL 0.01-0.09 Lab Interpretation (test code = 85631-9) Abnormal [facility] [id number] 13:23:31* Test Item Value Reference Range Interpretation Comme nts TROPONIN I (test code = 8291134682) 0.020 ng/mL <=0.034 KRYSTLE (test code = [...] of biotin. Lab Interpretation (test code = 29920-2) Normal [facility] [id number] 13:23:31* Test Item Value Reference Range Interpretation Comme nts TROPONIN I (test code = 8797747421) 0.020 ng/mL <=0.034 KRYSTLE (test code = [...] of biotin. Lab Interpretation (test code = 23539-1) Normal [facility] METABOLIC PANEL (38762)2023-04-16 12:58:04* Test Item Value Reference Range Interpretation Comme nts NA (test code = 4501159521) 142 mmol/L 135-145 K (test code = 4812037954) 4.0 mmol/L 3.5-5.0 CL (test code = 1534245843) 105 mmol/L 98-108 CO2 TOTAL (test code = 7789240554) 28 mmol/L 23-31 AGAP (test code = 2321930592) 9 2-16 BUN (test code = 3595058964) 11 mg/dL 7-23 GLUCOSE (test code = 7050765881) 115 mg/dL 70-110 H CREATININE (test code = 5767783344) 0.85 mg/dL 0.60-1.25 TOTAL BILI (test code = 1219768857) 0.4 mg/dL 0.1-1.1 CALCIUM (test code = 4532191293) 9.2 mg/dL 8.6-10.6 T PROTEIN (test code = 7448048711) 7.6 g/dL 6.3-8.2 ALBUMIN (test code = 0012133558) 4.4 g/dL 3.5-5.0 ALK PHOS (test code = 4427879557) 52 U/L 34-122 ALTv (test code = 1742-6) 23 U/L 5-50 AST(SGOT) (test code = 8286633268) 33 U/L 13-40 eGFR (test code = 1216443207) 95.4 mL/min/1.73m2 KRYSTLE (test code = KRYSTLE) [...] imaging tests). Lab Interpretation (test code = 71125-5) [facility] 12:58:04* Test Item Value Reference Range Interpretation Comme nts LIPASE (test code = 0574318059) 492 U/L 0-220 H Lab Interpretation (test cod e = 18081-6) [facility]normal [facility]OL[facility] PAN[facility] (92006)2023-04-16 12:58:04* Test Item Value Reference Range Interpretation Comme nts NA (test code = 5211547227) 142 mmol/L 135-145 K (test code = 6768506098) 4.0 mmol/L 3.5-5.0 CL (test code = 1975493954) 105 mmol/L 98-108 CO2 TOTAL (test code = 4583713303) 28 mmol/L 23-31 AGAP (test code = 4327211101) 9 2-16 BUN (test code = 2417628588) 11 mg/dL 7-23 GLUCOSE (test code = 6901409865) 115 mg/dL 70-110 H CREATININE (test code = 0335699706) 0.85 mg/dL 0.60-1.25 TOTAL BILI (test code = 2626480177) 0.4 mg/dL 0.1-1.1 CALCIUM (test code = 5110974168) 9.2 mg/dL 8.6-10.6 T PROTEIN (test code = 8274747976) 7.6 g/dL 6.3-8.2 ALBUMIN (test code = 2078470282) 4.4 g/dL 3.5-5.0 ALK PHOS (test code = 3052698292) 52 U/L 34-122 ALTv (test code = 1742-6) 23 U/L 5-50 AST(SGOT) (test code = 4624554289) 33 U/L 13-40 eGFR (test code = 3952078536) 95.4 mL/min/1.73m2 KRYSTLE (test code = KRYSTLE) [...] imaging tests). Lab Interpretation (test code = 95187-0) [facility]normal [facility] 12:58:04* Test Item Value Reference Range Interpretation Comme nts LIPASE (test code = 5280816369) 492 U/L 0-220 H Lab Interpretation (test cod e = 33794-8) Abnormal [facility] WITH [id number] 12:50:01* Test Item Value Reference Range Interpretation [...] 34.9 g/dL 31.2-35.0 RDW-SD (test code = 36773-1) 41.4 fL 38.5-51.6 RDW-CV (test code = 788-0) 13.2 % 12.1-15.4 PLT (test code = 777-3) 219 See_Comment [Automated messa ge] The system which generated this result transmitted reference range: 150 - 328 10*3/?L. The reference range was not used to interpret this result as normal/abnormal. MPV (test code = 44307-8) 9.5 fL 9.8-13.0 L NRBC/100 WBC (test code = 3550921811) 0.0 See_Comment [Automated [employer] ssage] The system which generated this result transmitted reference range: 0.0 - 10.0 /100 WBCs. The reference range was not used to interpret this result as normal/abnormal. NRBC x10^3 (test code = 0945019854) See_Comment [Automated messa ge] The system which generated this result transmitted reference range: 10*3/?L. The reference range was not used to interpret this result as normal/abnormal. GRAN MAT (NEUT) % (test code = 770-8) 46.9 % IMM GRAN % (test code = 5641525839) 0.10 % LYMPH % (test code = 736-9) 43.4 % MONO % (test code = 5905-5) 8.4 % EOS % (test code = 713-8) 0.9 % BASO % (test code = 706-2) 0.3 % GRAN MAT x10^3(ANC) (test code = 3461794323) 3.16 10*3/uL 1.99-6.95 IMM GRAN x10^3 (test code = 0841484180) 0.00-0.06 LYMPH x10^3 (test code = 731-0) 2.93 10*3/uL 1.09-3.23 MONO x10^3 (test code = 742-7) 0.57 10*3/uL 0.36-1.02 EOS x10^3 (test code = 711-2) 0.06 10*3/uL 0.06-0.53 BASO x10^3 (test code = 704-7) 0.01-0.09 Lab Interpretation (test code = 98584-9) Abnormal [facility] WITH [id number] 12:50:01* Test Item Value Reference Range Interpretation Comme nts WBC (test code = 6690-2) 6.75 See_Comment [Automated [employer]] The system which generated this result transmitted reference range: 4.20 - 10.70 10*3/?L. The reference range was not used to interpret this result as normal/abnormal. RBC (test code = 789-8) 5.08 See_Comment [Automated [employer]] The system which generated this result [...] 34.9 g/dL 31.2-35.0 RDW-SD (test code = 56182-4) 41.4 fL 38.5-51.6 RDW-CV (test code = 788-0) 13.2 % 12.1-15.4 PLT (test code = 777-3) 219 See_Comment [Automated messa ge] The system which generated this result transmitted reference range: 150 - 328 10*3/?L. The reference range was not used to interpret this result as normal/abnormal. MPV (test code = 39920-9) 9.5 fL 9.8-13.0 L NRBC/100 WBC (test code = 8571199938) 0.0 See_Comment [Automated [employer] ssage] The system which generated this result transmitted reference range: 0.0 - 10.0 /100 WBCs. The reference range was not used to interpret this result as normal/abnormal. NRBC x10^3 (test code = 0721165613) See_Comment [Automated messa ge] The system which generated this result transmitted reference range: 10*3/?L. The reference range was not used to interpret this result as normal/abnormal. GRAN MAT (NEUT) % (test code = 770-8) 46.9 % IMM GRAN % (test code = 0039602784) 0.10 % LYMPH % (test code = 736-9) 43.4 % MONO % (test code = 5905-5) 8.4 % EOS % (test code = 713-8) 0.9 % BASO % (test code = 706-2) 0.3 % GRAN MAT x10^3(ANC) (test code = 1230100027) 3.16 10*3/uL 1.99-6.95 IMM GRAN x10^3 (test code = 5962995966) 0.00-0.06 LYMPH x10^3 (test code = 731-0) 2.93 10*3/uL 1.09-3.23 MONO x10^3 (test code = 742-7) 0.57 10*3/uL 0.36-1.02 EOS x10^3 (test code = 711-2) 0.06 10*3/uL 0.06-0.53 BASO x10^3 (test code = 704-7) 0.01-0.09 Lab Interpretation (test code = 11926-4) [facility]13 21:02:35* Test Item Value Reference Range Interpretation Comme [facility] POCT GLU (test code = 3681339622) 118 mg/dL 70-110 H Lab Interpretation (test cod e = 62674-2) Abnormal [facility] WITH [id number] 05:51:48* Test Item Value Reference Range Interpretation [...] 34.4 g/dL 31.2-35.0 RDW-SD (test code = 34827-8) 38.5 fL 38.5-51.6 RDW-CV (test code = 788-0) 12.5 % 12.1-15.4 PLT (test code = 777-3) 216 See_Comment [Automated messa ge] The system which generated this result transmitted reference range: 150 - 328 10*3/?L. The reference range was not used to interpret this result as normal/abnormal. MPV (test code = 97478-1) 10.0 fL 9.8-13.0 NRBC/100 WBC (test code = 7350451414) 0.0 See_Comment [Automated me ssage] The system which generated this result transmitted reference range: 0.0 - 10.0 /100 WBCs. The reference range was not used to interpret this result as normal/abnormal. NRBC x10^3 (test code = 5614568588) See_Comment [Automated messa ge] The system which generated this result transmitted reference range: 10*3/?L. The reference range was not used to interpret this result as normal/abnormal. SEG % (test code = 13135-3) 36 % 33-76 LYMPH % (test code = 52592-8) 48 % 14-54 MONO % (test code = 46164-3) 13 % 0-4 H EOS % (test code = 69090-8) 3 % 0-3 ANC (test code = 753-4) 2.75 10*3/uL 1.99-6.95 Lab Interpretation (test code = 31090-6) [facility] (16961)2022-12-09 05:24:19* Test Item Value Reference Range Interpretation Comme nts NA (test code = 9910344605) 139 mmol/L 135-145 K (test code = 6374261589) 3.8 mmol/L 3.5-5.0 CL (test code = 7441118990) 105 mmol/L 98-108 CO2 TOTAL (test code = 9570125695) 24 mmol/L 23-31 AGAP (test code = 3996522964) 10 2-16 BUN (test code = 9971570248) 11 mg/dL 7-23 GLUCOSE (test code = 9512238560) 115 mg/dL 70-110 H CREATININE (test code = 0745145238) 0.93 mg/dL 0.60-1.25 TOTAL BILI (test code = 9063983107) 0.8 mg/dL 0.1-1.1 CALCIUM (test code = 8523707799) 9.3 mg/dL 8.6-10.6 T PROTEIN (test code = 1995113885) 8.0 g/dL 6.3-8.2 ALBUMIN (test code = 3195469125) 4.5 g/dL 3.5-5.0 ALK PHOS (test code = 7199917951) 50 U/L 34-122 ALTv (test code = 1742-6) 22 U/L 5-50 AST(SGOT) (test code = 7801017557) 36 U/L 13-40 eGFR (test code = 7799460775) 86.0 mL/min/1.73m2 KRYSTLE (test code = KRYSTLE) [...] imaging tests). Lab Interpretation (test code = 95441-4) [facility] 05:24:18* Test Item Value Reference Range Interpretation Comme nts LIPASE (test code = 7487533736) 271 U/L 0-220 H Lab Interpretation (test cod e = 58335-6) [facility]normal [facility] with Ivcspuhbxdey2310-70-17 22:09:52* Test Item Value Reference Range Interpretation Comme nts WBC (test code = 6690-2) See_Comment [Automated [employer]] The system which generated this result transmitted [...] g/dL 31.2-35.0 H RDW-SD (test code = 41521-3) 39.2 fL 38.5-51.6 RDW-CV (test code = 788-0) 12.9 % 12.1-15.4 PLT (test code = 777-3) See_Comment [Automated [employer] ge] The system which generated this result transmitted reference range: 150 - 328 10*3/?L. The reference range was not used to interpret this result as normal/abnormal. MPV (test code = 28653-7) 9.0 fL 9.8-13.0 L NRBC/100 WBC (test code = 3725592096) See_Comment [Automated [employer] ssage] The system which generated this result transmitted reference range: 0.0 - 10.0 /100 WBCs. The reference range was not used to interpret this result as normal/abnormal. NRBC x10^3 (test code = 6833065550) See_Comment [Automated messa ge] The system which generated this result transmitted reference range: 10*3/?L. The reference range was not used to interpret this result as normal/abnormal. GRAN MAT (NEUT) % (test code = 770-8) 35.3 % IMM GRAN % (test code = 0222576772) 0.00 % LYMPH % (test code = 736-9) 56.0 % MONO % (test code = 5905-5) 7.9 % EOS % (test code = 713-8) 0.4 % BASO % (test code = 706-2) 0.4 % GRAN MAT x10^3(ANC) (test code = 9890970394) 1.87 10*3/uL 1.99-6.95 L IMM GRAN x10^3 (test code = 2743948484) 0.00-0.06 LYMPH x10^3 (test code = 731-0) 2.97 10*3/uL 1.09-3.23 MONO x10^3 (test code = 742-7) 0.42 10*3/uL 0.36-1.02 EOS x10^3 (test code = 711-2) 0.06-0.53 L BASO x10^3 (test code = 704-7) 0.01-0.09 Lab Interpretation (test code = 03012-9) Abnormal [facility] METABOLIC PANEL (NA, K, CL, CO2, GLUCOSE, BUN, CREATININE, CA)2022-10-12 00:25:13* Test Item Value Reference Range Interpretation Comme nts NA (test code = 0299623881) 136 mmol/L 135-145 K (test code = 1197211137) 3.5 mmol/L 3.5-5.0 CL (test code = 6371009657) 103 mmol/L 98-108 CO2 TOTAL (test code = 2599650996) 26 mmol/L 23-31 AGAP (test code = 4816494310) 2-16 BUN (test code = 2891560185) 14 mg/dL 7-23 GLUCOSE (test code = 6179362996) 157 mg/dL 70-110 H CREATININE (test code = 5825725356) 0.80 mg/dL 0.60-1.25 CALCIUM (test code = 4343507973) 8.4 mg/dL 8.6-10.6 L eGFR (test code = 1625622874) mL/min/1.73m2 KRYSTLE (test code = KRYSTEL) Association of Glomerular Filtration Rate (GFR) and [...] imaging tests). Lab Interpretation (test code = 89856-2) [facility]normal [facility] (69524) (ALB,T.PRO,BILI T,BU/BC,ALT,AST,ALK PHOS)2022-10-12 00:25:13* Test Item Value Reference Range Interpretation Comme nts TOTAL BILI (test code = 0879891461) 1.2 mg/dL 0.1-1.1 H BILI UNCON (test code = 9108181316) 1.0 mg/dL 0.1-1.1 BILI CONJ (test code = 9115337546) 0.0 mg/dL 0.0-0.3 T PROTEIN (test code = 6922724356) 7.1 g/dL 6.3-8.2 ALBUMIN (test code = 4428222921) 4.0 g/dL 3.5-5.0 ALK PHOS (test code = 9486741592) 59 U/L 34-122 ALTv (test code = 1742-6) 38 U/L 5-50 AST(SGOT) (test code = 1883675280) 61 U/L 13-40 H Lab Interpretation (test cod e = 38096-0) [facility]normal [facility] Confirmation (Lab Only)2022-10-11 21:35:47* Test Item Value Reference Range Interpretation Comme nts ABO & RH (test code = 20) O Positive Performed at [facility] Laboratory Services - [facility] Blood [address] Free: [phone] No. [id number] [facility]Type and Screen - ONCE Jerkssy8283-41-98 21:25:51* Test Item Value Reference Range Interpretation Comme nts ABO & RH (test code = 20) O POSITIVE Performed at [facility] Laboratory Services - [place] [address]Toll Free: [phone] No. [id number] IAT (test code = 1185) Negative Performed at [facility] Laboratory Services - [place] [id number] Free: [phone] No. [id number] [facility] WITH [id number] 20:47:43* Test Item Value Reference Range Interpretation [...] g/dL 31.2-35.0 H RDW-SD (test code = 16878-8) 41.1 fL 38.5-51.6 RDW-CV (test code = 788-0) 13.2 % 12.1-15.4 PLT (test code = 777-3) See_Comment [Automated messa ge] The system which generated this result transmitted reference range: 150 - 328 10*3/?L. The reference range was not used to interpret this result as normal/abnormal. MPV (test code = 37962-9) 9.5 fL 9.8-13.0 L NRBC/100 WBC (test code = 4705350332) See_Comment [Automated [employer] ssage] The system which generated this result transmitted reference range: 0.0 - 10.0 /100 WBCs. The reference range was not used to interpret this result as normal/abnormal. NRBC x10^3 (test code = 2510581953) See_Comment [Automated [employer]] The system which generated this result transmitted reference range: 10*3/?L. The reference range was not used to interpret this result as normal/abnormal. GRAN MAT (NEUT) % (test code = 770-8) 38.2 % IMM GRAN % (test code = 4299243848) 0.00 % LYMPH % (test code = 736-9) 53.7 % MONO % (test code = 5905-5) 7.5 % EOS % (test code = 713-8) 0.3 % BASO % (test code = 706-2) 0.3 % GRAN MAT x10^3(ANC) (test code = 5970258821) 2.46 10*3/uL 1.99-6.95 IMM GRAN x10^3 (test code = 6088549182) 0.00-0.06 LYMPH x10^3 (test code = 731-0) 3.46 10*3/uL 1.09-3.23 H MONO x10^3 (test code = 742-7) 0.48 10*3/uL 0.36-1.02 EOS x10^3 (test code = 711-2) 0.06-0.53 L BASO x10^3 (test code = 704-7) 0.01-0.09 Lab Interpretation (test code = 42366-2) [facility]normal [facility]iscoLIPID PANEL (40736)(TOTAL CHOLESTEROL, TRIGLYCERIDES, HDL)2022-10-11 20:32:44* Test Item Value Reference Range Interpretation Comme nts CHOL (test code = 4691812577) 195 mg/dL 120-200 HDL (test code = 0205447614) 36 mg/dL See_Comment L [Automated messa ge] The system which generated this result transmitted reference range: >=40. The reference range was not used to interpret this result as normal/abnormal. HDLC RATIO (test code = 7096999398) See_Comment H [Automated messa ge] The system which generated this result transmitted reference range: <=5.0. The reference range was not used to interpret this result as normal/abnormal. TRIG (test code = 9713252616) 84 mg/dL 30-170 LDL CHOL (test code = 53576-8) 142 mg/dL See_Comment [Automated messa ge] The system which generated this result transmitted reference range: <=160. The reference range was not used to interpret this result as normal/abnormal. VLDL (test code = 7583155055) 17 mg/dL 5-60 Lab Interpretation (test code = 98414-1) [facility]normal [facility]N-TERMINAL [id number] 14:23:55* Test Item Value Reference Range Interpretation Comme nts NT-proBNP (test code = 9689770430) See_Comment [Automated message] The system which generated this result transmitted reference range: <=125. The reference range was not used to interpret this result as normal/abnormal. KRYSTLE (test code = KRYSTLE) Biotin has been reported to cause a negative bias, interpret results relative to patient's use of biotin. Lab Interpretation (test code = 69051-0) Normal [facility] FriscoACTIVATED PARTIAL THRMPLAS [id number] 14:23:25* Test Item Value Reference Range Interpretation Comme nts APTT Patient (test code = 3173-2) See_Comment [Automated message] The system which generated this result transmitted reference range: 23 - 38 Seconds. The reference range was not used to interpret this result as normal/abnormal. KRYSTLE (test code = KRYSTLE) The [facility] patient population mean normal value for aPTT is 30 seconds. Lab Interpretation (test code = 53157-2) Normal [facility]2023-01-28 14:23:05* Test Item Value Reference Range Interpretation Comme nts LIPASE (test code = 4173718178) 502 U/L 0-220 H Lab Interpretation (test cod e = 72916-5) [facility]. METABOLIC PANEL (33108)2022-10-11 14:23:05* Test Item Value Reference Range Interpretation Comme nts NA (test code = 3420319638) 139 mmol/L 135-145 K (test code = 1317238703) 5.0 mmol/L 3.5-5.0 Slight hemolysis CL (test code = 4893405763) 103 mmol/L 98-108 CO2 TOTAL (test code = 2462007767) 28 mmol/L 23-31 AGAP (test code = 1274048022) 2-16 BUN (test code = 8173160184) 17 mg/dL 7-23 Slight hemolysis GLUCOSE (test code = 8555425144) 103 mg/dL 70-110 CREATININE (test code = 1374195089) 0.80 mg/dL 0.60-1.25 TOTAL BILI (test code = 3145799194) 1.6 mg/dL 0.1-1.1 H CALCIUM (test code = 5157107270) 9.0 mg/dL 8.6-10.6 T PROTEIN (test code = 7850197644) 8.4 g/dL 6.3-8.2 H ALBUMIN (test code = 9385941786) 4.8 g/dL 3.5-5.0 ALK PHOS (test code = 1049856290) 57 U/L 34-122 Slight hemolysis ALTv (test code = 1742-6) 49 U/L 5-50 AST(SGOT) (test code = 6869077453) 77 U/L 13-40 H Slight hemolysis eGFR (test code = 0757074089) mL/min/1.73m2 KRYSTLE (test code = KRYSTLE) Association [...] imaging tests). Lab Interpretation (test code = 81111-3) [facility]normal [facility]iscoTROPONIN [id number] 14:23:05* Test Item Value Reference Range Interpretation Comments TROPONIN I (test code = 8394473495) 0.018 ng/mL See_Comment [Automated message] The system [...] of biotin. Lab Interpretation (test code = 94995-5) Normal [facility] FriscoPROTHROMBIN TIME / [id number] 14:20:24* Test Item Value Reference Range Interpretation [...] the indications. Lab Interpretation (test code = 74126-8) Normal [facility] WITH [id number] 13:55:05* Test Item Value Reference Range Interpretation Comme nts WBC (test code = 6690-2) See_Comment [Automated messa ge] The system which generated this result transmitted reference range: 4.20 - 10.70 10*3/?L. The reference range was not used to interpret this result as normal/abnormal. RBC (test code = 789-8) See_Comment [Automated [employer]] The system which generated this result [...] 34.9 g/dL 31.2-35.0 RDW-SD (test code = 17712-8) 40.4 fL 38.5-51.6 RDW-CV (test code = 788-0) 13.0 % 12.1-15.4 PLT (test code = 777-3) See_Comment [Automated messa ge] The system which generated this result transmitted reference range: 150 - 328 10*3/?L. The reference range was not used to interpret this result as normal/abnormal. MPV (test code = 69074-1) 9.1 fL 9.8-13.0 L NRBC/100 WBC (test code = 5525211533) See_Comment [Automated me ssage] The system which generated this result transmitted reference range: 0.0 - 10.0 /100 WBCs. The reference range was not used to interpret this result as normal/abnormal. NRBC x10^3 (test code = 3074543598) See_Comment [Automated messa ge] The system which generated this result transmitted reference range: 10*3/?L. The reference range was not used to interpret this result as normal/abnormal. GRAN MAT (NEUT) % (test code = 770-8) 53.2 % IMM GRAN % (test code = 4233301170) 0.10 % LYMPH % (test code = 736-9) 36.6 % MONO % (test code = 5905-5) 9.3 % EOS % (test code = 713-8) 0.5 % BASO % (test code = 706-2) 0.3 % GRAN MAT x10^3(ANC) (test code = 1246670246) 4.25 10*3/uL 1.99-6.95 IMM GRAN x10^3 (test code = 9468943934) 0.00-0.06 LYMPH x10^3 (test code = 731-0) 2.92 10*3/uL 1.09-3.23 MONO x10^3 (test code = 742-7) 0.74 10*3/uL 0.36-1.02 EOS x10^3 (test code = 711-2) 0.04 10*3/uL 0.06-0.53 L BASO x10^3 (test code = 704-7) 0.01-0.09 Lab Interpretation (test code = 20391-2) [facility]normal [facility]. METABOLIC PANEL (73634)2022-06-09 13:23:22* Test Item Value Reference Range Interpretation Comme nts NA (test code = 0589717557) 138 mmol/L 135-145 K (test code = 3300344553) 4.5 mmol/L 3.5-5 CL (test code = 9065809600) 106 mmol/L 98-108 CO2 TOTAL (test code = 0052179210) 24 mmol/L 23-31 AGAP (test code = 3078022553) 2-16 BUN (test code = 4678814254) 18 mg/dL 7-23 GLUCOSE (test code = 0036127462) 97 mg/dL 70-110 CREATININE (test code = 7875024500) 0.98 mg/dL 0.6-1.25 TOTAL BILI (test code = 6116128613) 0.5 mg/dL 0.1-1.1 CALCIUM (test code = 3978649925) 9.3 mg/dL 8.6-10.6 T PROTEIN (test code = 0841267028) 7.3 g/dL 6.3-8.2 ALBUMIN (test code = 1585487390) 4.5 g/dL 3.5-5 ALK PHOS (test code = 1443706493) 65 U/L 34-122 ALTv (test code = 1742-6) 27 U/L 5-50 AST(SGOT) (test code = 1108775030) 33 U/L 13-40 eGFR (test code = 7050006955) mL/min/1.73m2 KRYSTLE (test code = KRYSTLE) Association [...] or abnormalities in imaging tests). [facility]-26 13:23:01* Test Item Value Reference Range Interpretation Comme nts LIPASE (test code = 2779818569) 596 U/L 0-220 H Lab Interpretation (test cod e = 30137-1) Abnormal [facility] WITH [id number] 13:09:00* Test Item Value Reference Range Interpretation Comme nts WBC (test code = 6690-2) See_Comment [Automated [employer]] The system which generated this result transmitted reference range: 4.20 - 10.70 10*3/?L. The reference range was not used to interpret this result as normal/abnormal. RBC (test code = 789-8) See_Comment [Automated [employer]] The system which generated this result [...] g/dL 31.2-35 H RDW-SD (test code = 92024-7) 38.3 fL 38.5-51.6 L RDW-CV (test code = 788-0) 12.3 % 12.1-15.4 PLT (test code = 777-3) See_Comment [Automated [employer]] The system which generated this result transmitted reference range: 150 - 328 10*3/?L. The reference range was not used to interpret this result as normal/abnormal. MPV (test code = 15578-4) 9.2 fL 9.8-13 L NRBC/100 WBC (test code = 1558191139) See_Comment [Automated me ssage] The system which generated this result transmitted reference range: 0.0 - 10.0 /100 WBCs. The reference range was not used to interpret this result as normal/abnormal. NRBC x10^3 (test code = 0568750776) See_Comment [Automated messa ge] The system which generated this result transmitted reference range: 10*3/?L. The reference range was not used to interpret this result as normal/abnormal. GRAN MAT (NEUT) % (test code = 770-8) 47.3 % IMM GRAN % (test code = 4013284496) 0.30 % LYMPH % (test code = 736-9) 43.8 % MONO % (test code = 5905-5) 7.8 % EOS % (test code = 713-8) 0.5 % BASO % (test code = 706-2) 0.3 % GRAN MAT x10^3(ANC) (test code = 4271737848) 3.04 10*3/uL 1.99-6.95 IMM GRAN x10^3 (test code = 4657906801) 0-0.06 LYMPH x10^3 (test code = 731-0) 2.81 10*3/uL 1.09-3.23 MONO x10^3 (test code = 742-7) 0.50 10*3/uL 0.36-1.02 EOS x10^3 (test code = 711-2) 0.03 10*3/uL 0.06-0.53 L BASO x10^3 (test code = 704-7) 0.01-0.09 Lab Interpretation (test code = 23052-1) Abnormal [facility] METABOLIC PANEL (NA, K, CL, CO2, GLUCOSE, BUN, CREATININE, CA)2021-11-01 10:40:12* Test Item Value Reference Range Interpretation Comme nts NA (test code = 6080974070) 136 mmol/L 135-145 K (test code = 5279746657) 4.2 mmol/L 3.5-5.0 CL (test code = 6445795465) 104 mmol/L 98-108 CO2 TOTAL (test code = 9297054775) 31 mmol/L 23-31 AGAP (test code = 9498409463) 2-16 L BUN (test code = 8895249282) 15 mg/dL 7-23 GLUCOSE (test code = 0884082380) 91 mg/dL 70-110 CREATININE (test code = 1124393595) 0.96 mg/dL 0.60-1.25 CALCIUM (test code = 0869096028) 8.5 mg/dL 8.6-10.6 L eGFR (test code = 6821233950) mL/min/1.73m2 KRYSTLE (test code = KRYSTLE) Association [...] imaging tests). Lab Interpretation (test code = 84490-0) [facility]normal [facility]MAG[facility]2022-02-18 10:40:12* Test Item Value Reference Range Interpretation Comme nts MAGNESIUM (test code = 7927682712) 1.7 mg/dL 1.7-2.4 Lab Interpretation (test cod e = 07161-6) Normal [facility]PHOSPHORUS2022-02-18 10:39:52* Test Item Value Reference Range Interpretation Comme nts PHOSPHORUS (test code = 2919263673) 4.4 mg/dL 2.5-5.0 Lab Interpretation (test cod e = 17639-4) Normal [facility] WITH [id number] 10:25:11* Test Item Value Reference Range Interpretation [...] 34.3 g/dL 31.2-35.0 RDW-SD (test code = 14796-0) 38.5 fL 38.5-51.6 RDW-CV (test code = 788-0) 12.3 % 12.1-15.4 PLT (test code = 777-3) See_Comment [Automated messa ge] The system which generated this result transmitted reference range: 150 - 328 10*3/?L. The reference range was not used to interpret this result as normal/abnormal. MPV (test code = 81195-2) 9.6 fL 9.8-13.0 L NRBC/100 WBC (test code = 3367277222) See_Comment [Automated [employer] ssage] The system which generated this result transmitted reference range: 0.0 - 10.0 /100 WBCs. The reference range was not used to interpret this result as normal/abnormal. NRBC x10^3 (test code = 4436808911) <0.01 See_Comment [Automated messa ge] The system which generated this result transmitted reference range: 10*3/?L. The reference range was not used to interpret this result as normal/abnormal. GRAN MAT (NEUT) % (test code = 770-8) 49.5 % IMM GRAN % (test code = 3371147352) 0.30 % LYMPH % (test code = 736-9) 39.4 % MONO % (test code = 5905-5) 9.7 % EOS % (test code = 713-8) 0.8 % BASO % (test code = 706-2) 0.3 % GRAN MAT x10^3(ANC) (test code = 0672827882) 3.13 10*3/uL 1.99-6.95 IMM GRAN x10^3 (test code = 5226876597) <0.03 0.00-0.06 LYMPH x10^3 (test code = 731-0) 2.49 10*3/uL 1.09-3.23 MONO x10^3 (test code = 742-7) 0.61 10*3/uL 0.36-1.02 EOS x10^3 (test code = 711-2) 0.05 10*3/uL 0.06-0.53 L BASO x10^3 (test code = 704-7) <0.03 0.01-0.09 Lab Interpretation (test code = 28013-8) Abnormal [facility] [id number] 17:32:56* Test Item Value Reference Range Interpretation Comme nts NT-proBNP (test code = 3317329230) 13 pg/mL See_Comment [Automated message] The system which generated this result transmitted reference range: <=125. The reference range was not used to interpret this result as normal/abnormal. KRYSTLE (test code = KRYSTLE) Biotin has been reported to cause a negative bias, interpret results relative to patient's use of biotin. Lab Interpretation (test code = 48295-2) Normal [facility]-TERMINAL [id number] 10:50:49* Test Item Value Reference Range Interpretation Comme nts NT-proBNP (test code = 1609148404) <11 See_Comment [Automated message] The system which generated this result transmitted reference range: <=125 pg/mL. The reference range was not used to interpret this result as normal/abnormal. KRYSTLE (test code = KRYSTLE) Biotin has been reported to cause a negative bias, interpret results relative to patient's use of biotin. Lab Interpretation (test code = 68259-2) Normal [facility]iscoTROP[facility] [id number] 10:36:56* Test Item Value Reference Range Interpretation Comments TROPONIN I (test code = 9505315213) 0.004 ng/mL See_Comment [Automated message] The system [...] of biotin. Lab Interpretation (test code = 44553-9) Normal [facility]. METABOLIC PANEL (95065)2021-10-31 10:33:50* Test Item Value Reference Range Interpretation Comme nts NA (test code = 6104516307) 139 mmol/L 135-145 K (test code = 9798507402) 4.0 mmol/L 3.5-5.0 CL (test code = 8659147712) 109 mmol/L 98-108 H CO2 TOTAL (test code = 1277610904) 27 mmol/L 23-31 AGAP (test code = 1777141302) 2-16 BUN (test code = 1259334431) 16 mg/dL 7-23 GLUCOSE (test code = 6535147433) 97 mg/dL 70-110 CREATININE (test code = 1392087018) 1.00 mg/dL 0.60-1.25 TOTAL BILI (test code = 2265274981) 1.0 mg/dL 0.1-1.1 CALCIUM (test code = 3463832523) 8.7 mg/dL 8.6-10.6 T PROTEIN (test code = 0940114647) 7.9 g/dL 6.3-8.2 ALBUMIN (test code = 0736154257) 4.4 g/dL 3.5-5.0 ALK PHOS (test code = 7304887815) 60 U/L 34-122 ALTv (test code = 1742-6) 56 U/L 5-50 H AST(SGOT) (test code = 4303988905) 49 U/L 13-40 H eGFR (test code = 1819403906) mL/min/1.73m2 KRYSTLE (test code = KRYSTLE) Association [...] imaging tests). Lab Interpretation (test code = 68173-3) Abnormal [facility] [id number] 10:25:32* Test Item Value Reference Range Interpretation Comme nts MAGNESIUM (test code = 3475824265) 1.8 mg/dL 1.7-2.4 Lab Interpretation (test cod e = 54952-6) [facility]2022-02-17 10:25:12* Test Item Value Reference Range Interpretation Comme nts PHOSPHORUS (test code = 9591777467) 3.9 mg/dL 2.5-5.0 Lab Interpretation (test cod e = 07187-3) Normal [facility]iscoCREATINE [id number] 10:24:52* Test Item Value Reference Range Interpretation Comme nts CK (test code = 9097801361) 215 U/L 33-194 H Lab Interpretation (test cod e = 56933-2) [facility]normal [facility] FriscoCB with Oxochqncwctw1212-82-24 10:18:09* Test Item Value Reference Range Interpretation Comme nts WBC (test code = 6690-2) See_Comment [Automated messa ge] The system which generated this result transmitted reference range: 4.20 - 10.70 10*3/?L. The reference range was not used to interpret this result as normal/abnormal. RBC (test code = 789-8) See_Comment [Automated [employer]] The system which generated this result [...] 33.9 g/dL 31.2-35.0 RDW-SD (test code = 95798-6) 41.3 fL 38.5-51.6 RDW-CV (test code = 788-0) 13.0 % 12.1-15.4 PLT (test code = 777-3) See_Comment [Automated messa ge] The system which generated this result transmitted reference range: 150 - 328 10*3/?L. The reference range was not used to interpret this result as normal/abnormal. MPV (test code = 92246-3) 10.0 fL 9.8-13.0 NRBC/100 WBC (test code = [id number]) See_Comment [Automated me ssage] The system which generated this result transmitted reference range: 0.0 - 10.0 /100 WBCs. The reference range was not used to interpret this result as normal/abnormal. NRBC x10^3 (test code = [id number]) <0.01 See_Comment [Automated messa ge] The system which generated this result transmitted reference range: 10*3/?L. The reference range was not used to interpret this result as normal/abnormal. GRAN MAT (NEUT) % (test code = 770-8) 46.4 % IMM GRAN % (test code = 5868096947) 0.20 % LYMPH % (test code = 736-9) 44.0 % MONO % (test code = 5905-5) 8.3 % EOS % (test code = 713-8) 0.7 % BASO % (test code = 706-2) 0.4 % GRAN MAT x10^3(ANC) (test code = 9806266332) 3.73 10*3/uL 1.99-6.95 IMM GRAN x10^3 (test code = [id number]) <0.03 0.00-0.06 LYMPH x10^3 (test code = 731-0) 3.55 10*3/uL 1.09-3.23 H MONO x10^3 (test code = 742-7) 0.67 10*3/uL 0.36-1.02 EOS x10^3 (test code = 711-2) 0.06 10*3/uL 0.06-0.53 BASO x10^3 (test code = 704-7) 0.03 10*3/uL 0.01-0.09 Lab Interpretation (test code = 03283-3) [facility]normal [facility] / [id number] 10:18:09* Test Item Value Reference Range Interpretation Comme nts PROTIME PATIENT (test code = 5964-2) See_Comment [Automated [employer]] The system which generated this result transmitted reference range: 12.0 - 14.7 Seconds. The reference range was not used to interpret this result as normal/abnormal. INR (test code = 6301-6) Normal INR <1.1; Warfarin Therapeutic range 2.0 to 3.0 or 2.5 to 3.5, depending upon the indications. Lab Interpretation (test code = 69191-7) Normal [facility]OP[facility] [id number] 07:43:50* Test Item Value Reference Range Interpretation Comments TROPONIN I (test code = 0599951674) 0.005 ng/mL See_Comment [Automated message] The system which generated this result transmitted reference range: <=0.034. The reference range was not used to interpret this result as normal/abnormal. KRYSTLE (test code = KRSYTLE) Reference (Normal) Range (defined by the 99th [...] of biotin. Lab Interpretation (test code = 38444-4) Normal [facility] METABOLIC PANEL (72710)2021-10-30 20:56:25* Test Item Value Reference Range Interpretation Comme nts NA (test code = 1347738468) 139 mmol/L 135-145 K (test code = 3627811378) 4.8 mmol/L 3.5-5.0 CL (test code = 3152217367) 105 mmol/L 98-108 CO2 TOTAL (test code = 9809602255) 26 mmol/L 23-31 AGAP (test code = 5976441697) 2-16 BUN (test code = 2129237525) 18 mg/dL 7-23 GLUCOSE (test code = 5589202667) 135 mg/dL 70-110 H CREATININE (test code = 8098600802) 0.98 mg/dL 0.60-1.25 TOTAL BILI (test code = 3106232921) 0.8 mg/dL 0.1-1.1 CALCIUM (test code = 1843689005) 10.0 mg/dL 8.6-10.6 T PROTEIN (test code = 6045518118) 10.3 g/dL 6.3-8.2 H ALBUMIN (test code = 1499127868) 5.5 g/dL 3.5-5.0 H ALK PHOS (test code = 4924497853) 74 U/L 34-122 ALTv (test code = 1742-6) 69 U/L 5-50 H AST(SGOT) (test code = 7498387533) 59 U/L 13-40 H eGFR (test code = 0932524471) mL/min/1.73m2 KRYSTLE (test code = KRYSTLE) Association [...] imaging tests). Lab Interpretation (test code = 27163-7) [facility]normal [facility]LIPASE2022-02-16 20:56:05* Test Item Value Reference Range Interpretation Comme nts LIPASE (test code = 4472643287) 70 U/L 0-220 Lab Interpretation (test cod e = 24137-8) Normal [facility]CB WITH [id number] 20:34:20* Test Item Value Reference Range Interpretation [...] 34.3 g/dL 31.2-35.0 RDW-SD (test code = 89205-6) 40.6 fL 38.5-51.6 RDW-CV (test code = 788-0) 12.8 % 12.1-15.4 PLT (test code = 777-3) See_Comment [Automated messa ge] The system which generated this result transmitted reference range: 150 - 328 10*3/?L. The reference range was not used to interpret this result as normal/abnormal. MPV (test code = 05720-5) 9.2 fL 9.8-13.0 L NRBC/100 WBC (test code = 3483904631) See_Comment [Automated [employer] ssage] The system which generated this result transmitted reference range: 0.0 - 10.0 /100 WBCs. The reference range was not used to interpret this result as normal/abnormal. NRBC x10^3 (test code = 7330731633) <0.01 See_Comment [Automated messa ge] The system which generated this result transmitted reference range: 10*3/?L. The reference range was not used to interpret this result as normal/abnormal. GRAN MAT (NEUT) % (test code = 770-8) 67.1 % IMM GRAN % (test code = 1005496838) 0.40 % LYMPH % (test code = 736-9) 24.5 % MONO % (test code = 5905-5) 7.6 % EOS % (test code = 713-8) 0.1 % BASO % (test code = 706-2) 0.3 % GRAN MAT x10^3(ANC) (test code = 9244421126) 7.34 10*3/uL 1.99-6.95 H IMM GRAN x10^3 (test code = 7966990818) 0.04 10*3/uL 0.00-0.06 LYMPH x10^3 (test code = 731-0) 2.67 10*3/uL 1.09-3.23 MONO x10^3 (test code = 742-7) 0.83 10*3/uL 0.36-1.02 EOS x10^3 (test code = 711-2) <0.03 0.06-0.53 L BASO x10^3 (test code = 704-7) 0.03 10*3/uL 0.01-0.09 Lab Interpretation (test code = 50070-6) Abnormal [facility]CREATINE [id number] 05:55:54* Test Item Value Reference Range Interpretation Comme nts CK (test code = 6115792949) 3682 U/L 33-194 H Lab Interpretation (test cod e = 78219-7) Abnormal [facility]iscoCREATINE [id number] 05:55:54* Test Item Value Reference Range Interpretation Comme nts CK (test code = 8900647019) 3682 U/L 33-194 H Lab Interpretation (test cod e = 70287-1) Abnormal [facility] (NA, K, CL, CO2, GLUCOSE, BUN, CREATININE, CA)2021-05-24 05:02:27* Test Item Value Reference Range Interpretation Comme nts NA (test code = 9231412470) 137 mmol/L 135-145 K (test code = 9017150373) 3.6 mmol/L 3.5-5.0 CL (test code = 6686053062) 105 mmol/L 98-108 CO2 TOTAL (test code = 6389656316) 23 mmol/L 23-31 AGAP (test code = 5237921105) 2-16 BUN (test code = 3599429510) 26 mg/dL 7-23 H GLUCOSE (test code = 3181123118) 95 mg/dL 70-110 CREATININE (test code = 0538982429) 1.31 mg/dL 0.60-1.25 H CALCIUM (test code = 3770330964) 8.6 mg/dL 8.6-10.6 eGFR (test code = 0072140915) mL/min/1.73m2 KRYSTLE (test code = KRYSTLE) Association [...] imaging tests). Lab Interpretation (test code = 02510-0) Abnormal [facility] METABOLIC PANEL (NA, K, CL, CO2, GLUCOSE, BUN, CREATININE, CA)2021-05-24 05:02:27* Test Item Value Reference Range Interpretation Comme nts NA (test code = 6383940454) 137 mmol/L 135-145 K (test code = 8037874840) 3.6 mmol/L 3.5-5.0 CL (test code = 6219139547) 105 mmol/L 98-108 CO2 TOTAL (test code = 7593151585) 23 mmol/L 23-31 AGAP (test code = 7686222470) 2-16 BUN (test code = 2295532660) 26 mg/dL 7-23 H GLUCOSE (test code = 4252472171) 95 mg/dL 70-110 CREATININE (test code = 2602594829) 1.31 mg/dL 0.60-1.25 H CALCIUM (test code = 1359849403) 8.6 mg/dL 8.6-10.6 eGFR (test code = 2994954891) mL/min/1.73m2 KRYSTLE (test code = KRYSTLE) Association [...] imaging tests). Lab Interpretation (test code = 19573-4) Abnormal [facility] [id number] 02:56:10* Test Item Value Reference Range Interpretation Comments TROPONIN I (test code = 3985602628) 0.004 ng/mL See_Comment [Automated message] The system [...] of biotin. Lab Interpretation (test code = 76382-1) Normal [facility] [id number] 02:56:10* Test Item Value Reference Range Interpretation Comments TROPONIN I (test code = 7147857830) 0.004 ng/mL See_Comment [Automated message] The system [...] of biotin. Lab Interpretation (test code = 49054-9) Normal [facility] [id number] 02:41:54* Test Item Value Reference Range Interpretation Comme nts CK (test code = 7508971457) 4607 U/L 33-194 H Lab Interpretation (test cod e = 21500-7) Abnormal [facility] [id number] 02:41:54* Test Item Value Reference Range Interpretation Comme nts CK (test code = 1902211998) 4607 U/L 33-194 H Lab Interpretation (test cod e = 98687-9) Abnormal [facility]iscoN-TERMINAL [id number] 02:33:28* Test Item Value Reference Range Interpretation Comme nts NT-proBNP (test code = 1489149603) 14 pg/mL See_Comment [Automated message] The system which generated this result transmitted reference range: <=125. The reference range was not used to interpret this result as normal/abnormal. KRYSTLE (test code = KRYSTLE) Biotin has been reported to cause a negative bias, interpret results relative to patient's use of biotin. Lab Interpretation (test code = 41715-6) Normal [facility] [id number] 02:33:28* Test Item Value Reference Range Interpretation Comme nts NT-proBNP (test code = 6445058326) 14 pg/mL See_Comment [Automated message] The system which generated this result transmitted reference range: <=125. The reference range was not used to interpret this result as normal/abnormal. KRYSTLE (test code = KRYSTLE) Biotin has been reported to cause a negative bias, interpret results relative to patient's use of biotin. Lab Interpretation (test code = 50653-3) Normal [facility]iscoURINALYSIS2021-09-10 02:29:35* Test Item Value Reference Range Interpretation Comme nts APPEARANCE (test code = 4827212848) Clear Clear COLOR (test code = 1899916839) Yellow Yellow PH (test code = 6812694225) 4.8-8.0 SP GRAVITY (test code = 9609323343) 1.003-1.030 GLU U QUAL (test code = 7101231237) Normal Normal BLOOD (test code = 8858316634) Negative Negative KETONES (test code = 9749513350) Negative Negative PROTEIN (test code = 2887-8) Negative Negative UROBILIN (test code = 4366313741) 2.0 mg/dL Normal A BILIRUBIN (test code = 8510159762) Negative Negative NITRITE (test code = 7400555370) Negative Negative LEUK MO (test code = 9498807429) Negative Negative RBC/HPF (test code = 6578013887) See_Comment [Automated [employer] ge] The system which generated this result transmitted reference range: 0 - 3 HPF. The reference range was not used to interpret this result as normal/abnormal. WBC/HPF (test code = 2208864051) See_Comment [Automated [employer]] The system which generated this result transmitted reference range: 0 - 5 HPF. The reference range was not used to interpret this result as normal/abnormal. BACTERIA (test code = 3867199460) Negative Negative MUCOUS (test code = 6452038251) Slight Negative LPF A SQ EPITH (test code = 9781574540) <1 HPF Lab Interpretation (test code = 92965-4) [facility]normal [facility]2021-09-10 02:29:35* Test Item Value Reference Range Interpretation Comme nts APPEARANCE (test code = 2212332252) Clear Clear COLOR (test code = 2188024039) Yellow Yellow PH (test code = 0112660873) 4.8-8.0 SP GRAVITY (test code = 1201611194) 1.003-1.030 GLU U QUAL (test code = 4196722791) Normal Normal BLOOD (test code = 5612073094) Negative Negative KETONES (test code = 0863237390) Negative Negative PROTEIN (test code = 2887-8) Negative Negative UROBILIN (test code = 0880010212) 2.0 mg/dL Normal A BILIRUBIN (test code = 2462825787) Negative Negative NITRITE (test code = 3334175944) Negative Negative LEUK MO (test code = 8552407144) Negative Negative RBC/HPF (test code = 8265661673) See_Comment [Automated messa ge] The system which generated this result transmitted reference range: 0 - 3 HPF. The reference range was not used to interpret this result as normal/abnormal. WBC/HPF (test code = 9353585387) See_Comment [Automated [employer]] The system which generated this result transmitted reference range: 0 - 5 HPF. The reference range was not used to interpret this result as normal/abnormal. BACTERIA (test code = 5222114127) Negative Negative MUCOUS (test code = 0762921063) Slight Negative LPF A SQ EPITH (test code = 9052239449) <1 HPF Lab Interpretation (test code = 66049-3) Abnormal [facility]. METABOLIC PANEL (45807)2021-05-24 02:25:07* Test Item Value Reference Range Interpretation Comme nts NA (test code = 2521815052) 137 mmol/L 135-145 K (test code = 0560878434) 3.1 mmol/L 3.5-5.0 L CL (test code = 2604147865) 102 mmol/L 98-108 CO2 TOTAL (test code = 7407400738) 22 mmol/L 23-31 L AGAP (test code = 6246226192) 2-16 BUN (test code = 1290514357) 28 mg/dL 7-23 H GLUCOSE (test code = 9648535119) 132 mg/dL 70-110 H CREATININE (test code = 5291487203) 1.77 mg/dL 0.60-1.25 H TOTAL BILI (test code = 9160262120) 1.0 mg/dL 0.1-1.1 CALCIUM (test code = 2261692060) 9.4 mg/dL 8.6-10.6 T PROTEIN (test code = 2010456061) 9.4 g/dL 6.3-8.2 H ALBUMIN (test code = 4143257565) 5.0 g/dL 3.5-5.0 ALK PHOS (test code = 0045422807) 79 U/L 34-122 ALTv (test code = 1742-6) 112 U/L 5-50 H AST(SGOT) (test code = 1974472198) 152 U/L 13-40 H eGFR (test code = 6583115781) mL/min/1.73m2 KRYSTLE (test code = RKYSTLE) Association [...] imaging tests). Lab Interpretation (test code = 00562-0) Abnormal [facility]. METABOLIC PANEL (43800)2021-05-24 02:25:07* Test Item Value Reference Range Interpretation Comme nts NA (test code = 7219825231) 137 mmol/L 135-145 K (test code = 9294876641) 3.1 mmol/L 3.5-5.0 L CL (test code = 1295441617) 102 mmol/L 98-108 CO2 TOTAL (test code = 5438904889) 22 mmol/L 23-31 L AGAP (test code = 1352460413) 2-16 BUN (test code = 7765081679) 28 mg/dL 7-23 H GLUCOSE (test code = 7757112267) 132 mg/dL 70-110 H CREATININE (test code = 0951365881) 1.77 mg/dL 0.60-1.25 H TOTAL BILI (test code = 4531238690) 1.0 mg/dL 0.1-1.1 CALCIUM (test code = 7858304898) 9.4 mg/dL 8.6-10.6 T PROTEIN (test code = 3313506712) 9.4 g/dL 6.3-8.2 H ALBUMIN (test code = 1577181681) 5.0 g/dL 3.5-5.0 ALK PHOS (test code = 0960653991) 79 U/L 34-122 ALTv (test code = 1742-6) 112 U/L 5-50 H AST(SGOT) (test code = 5882687636) 152 U/L 13-40 H eGFR (test code = 0012139219) mL/min/1.73m2 KRYSTLE (test code = KRYSTLE) Association [...] imaging tests). Lab Interpretation (test code = 88167-2) Abnormal [facility] WITH [id number] 02:03:22* Test Item Value Reference Range Interpretation [...] g/dL 31.2-35.0 H RDW-SD (test code = 10114-2) 39.7 fL 38.5-51.6 RDW-CV (test code = 788-0) 12.7 % 12.1-15.4 PLT (test code = 777-3) See_Comment [Automated messa ge] The system which generated this result transmitted reference range: 150 - 328 10*3/?L. The reference range was not used to interpret this result as normal/abnormal. MPV (test code = 09815-7) 9.7 fL 9.8-13.0 L NRBC/100 WBC (test code = 1498483774) See_Comment [Automated [employer] ssage] The system which generated this result transmitted reference range: 0.0 - 10.0 /100 WBCs. The reference range was not used to interpret this result as normal/abnormal. NRBC x10^3 (test code = 7843478069) <0.01 See_Comment [Automated messa ge] The system which generated this result transmitted reference range: 10*3/?L. The reference range was not used to interpret this result as normal/abnormal. GRAN MAT (NEUT) % (test code = 770-8) 45.9 % IMM GRAN % (test code = 6199015069) 0.20 % LYMPH % (test code = 736-9) 41.7 % MONO % (test code = 5905-5) 11.6 % EOS % (test code = 713-8) 0.3 % BASO % (test code = 706-2) 0.3 % GRAN MAT x10^3(ANC) (test code = 4688263849) 3.95 10*3/uL 1.99-6.95 IMM GRAN x10^3 (test code = 4259563255) <0.03 0.00-0.06 LYMPH x10^3 (test code = 731-0) 3.60 10*3/uL 1.09-3.23 H MONO x10^3 (test code = 742-7) 1.00 10*3/uL 0.36-1.02 EOS x10^3 (test code = 711-2) 0.03 10*3/uL 0.06-0.53 L BASO x10^3 (test code = 704-7) 0.03 10*3/uL 0.01-0.09 Lab Interpretation (test code = 72459-9) Abnormal [facility] WITH [id number] 02:03:22* Test Item Value Reference Range Interpretation Comme nts WBC (test code = 6690-2) See_Comment [Automated [employer]] The system which generated this result transmitted reference range: 4.20 - 10.70 10*3/?L. The reference range was not used to interpret this result as normal/abnormal. RBC (test code = 789-8) See_Comment [Automated [employer]] The system which generated this result [...] g/dL 31.2-35.0 H RDW-SD (test code = 40363-2) 39.7 fL 38.5-51.6 RDW-CV (test code = 788-0) 12.7 % 12.1-15.4 PLT (test code = 777-3) See_Comment [Automated messa ge] The system which generated this result transmitted reference range: 150 - 328 10*3/?L. The reference range was not used to interpret this result as normal/abnormal. MPV (test code = 93590-6) 9.7 fL 9.8-13.0 L NRBC/100 WBC (test code = 4729619873) See_Comment [Automated [employer] ssage] The system which generated this result transmitted reference range: 0.0 - 10.0 /100 WBCs. The reference range was not used to interpret this result as normal/abnormal. NRBC x10^3 (test code = 2710192122) <0.01 See_Comment [Automated [employer]] The system which generated this result transmitted reference range: 10*3/?L. The reference range was not used to interpret this result as normal/abnormal. GRAN MAT (NEUT) % (test code = 770-8) 45.9 % IMM GRAN % (test code = 7126694250) 0.20 % LYMPH % (test code = 736-9) 41.7 % MONO % (test code = 5905-5) 11.6 % EOS % (test code = 713-8) 0.3 % BASO % (test code = 706-2) 0.3 % GRAN MAT x10^3(ANC) (test code = 1727432661) 3.95 10*3/uL 1.99-6.95 IMM GRAN x10^3 (test code = 3276756027) <0.03 0.00-0.06 LYMPH x10^3 (test code = 731-0) 3.60 10*3/uL 1.09-3.23 H MONO x10^3 (test code = 742-7) 1.00 10*3/uL 0.36-1.02 EOS x10^3 (test code = 711-2) 0.03 10*3/uL 0.06-0.53 L BASO x10^3 (test code = 704-7) 0.03 10*3/uL 0.01-0.09 Lab Interpretation (test code = 21701-9) Abnormal [facility]-19 (ID NOW RAPID TESTING)2021-05-02 00:31:00* Test Item Value Reference Range Interpretation Comme nts SARS-CoV-2 Rapid ID NOW (test code = 95163-8) Not Detected Not Detected KRYSTLE (test code = KRYSTLE) ID NOW COVID-19 As say is an isothermal nucleic acid amplification test intended for the qualitative detection of nucleic acid from SARS-CoV-2 viral RNA in nasopharyngeal (COBBL[employer] APPRENTICE) specimens. It is used under Emergency Use [...] clinically indicated. Lab Interpretation (test code = 94859-2) Normal [facility] STREP SCREEN FOR GROUP [id number] 00:25:45* Test Item Value Reference Range Interpretation Comme nts Streptococcus pyogenes (grou p A) antigen (test code = 71943-3) Negative Negative Lab Interpretation (test cod e = 03125-2) Normal [facility]- (ID NOW RAPID TESTING)2021-04-02 01:41:42* Test Item Value Reference Range Interpretation Comme nts SARS-CoV-2 Rapid ID NOW (test code = 40565-4) Not Detected Not Detected KRYSTLE (test code = KRYSTLE) ID NOW COVID-19 As say is an isothermal nucleic acid amplification test intended for the qualitative detection of nucleic acid from SARS-CoV-2 viral RNA in nasopharyngeal (COBBLER APPRENTICE) specimens. It is used under Emergency Use [...] clinically indicated. Lab Interpretation (test code = 08924-6) [facility] GROUP [id number] 01:39:31* Test Item Value Reference Range Interpretation Comme nts Streptococcus pyogenes (grou p A) antigen (test code = 43107-7) Negative Negative Lab Interpretation (test cod e = 32038-4) Normal [facility]iscoXR WRIST 3+ VW [id number] 02:41:03 Impression: No acute osseous abnormality. AFC: [id number] of Report Exam: XR WRIST 3+ [...] soft tissue edema.IMPRESSIONImpression: No acute osseous abnormality.AFC: [id number] of Report [facility]ysis[facility] 01:32:01* Test Item Value Reference Range Interpretation Comme nts APPEARANCE (test code = 6619038793) Clear Clear COLOR (test code = 2831477871) Yellow Yellow PH (test code = 2746524458) 4.8-8.0 SP GRAVITY (test code = 3388646177) 1.003-1.030 GLU U QUAL (test code = 3665731894) Normal Normal BLOOD (test code = 1988765544) Negative Negative KETONES (test code = 9959414959) Negative Negative PROTEIN (test code = 2887-8) Negative Negative UROBILIN (test code = 2522115482) 2.0 mg/dL Normal A BILIRUBIN (test code = 9924890151) Negative Negative NITRITE (test code = 3486515753) Negative Negative LEUK MO (test code = 9045865121) Negative Negative RBC/HPF (test code = 6048806252) See_Comment [Automated [employer]] The system which generated this result transmitted reference range: 0 - 3 HPF. The reference range was not used to interpret this result as normal/abnormal. WBC/HPF (test code = 2237362769) See_Comment [Automated [employer]] The system which generated this result transmitted reference range: 0 - 5 HPF. The reference range was not used to interpret this result as normal/abnormal. BACTERIA (test code = 7930714260) Few Negative A MUCOUS (test code = 3264546478) Slight Negative LPF A SQ EPITH (test code = 4635684512) <1 HPF Lab Interpretation (test code = 43247-2) [facility]normal [facility]XR CHEST 1 [id number] 04:09:05Impression: Mild thickening of the sol of the central airways, possibly reflectinginfectious or inflammatory bronchitis. RL: 460 AFC: [id number] Ordering physician: DARNELL HSU Indication: Cough and [...] central airways, possibly reflectinginfectious or inflammatory bronchitis.RL: 460AF: [id number] signed byMarisol Manzo MD, PhD at 11/14/2020 10:09 PM [facility]iscoCOMPREHENSIVE METABOLIC [id number] 00:00:00* Test Item Value Reference Range Interpretation Comme nts GLUCOSE (test code = 2217) 101 MG/DL BUN (test code = 2208) 11 MG/DL CREATININE (test code = 2214) 0.88 MG/DL eGFR AMER. (test cod e = 64170) 118 ML/MIN/1.73 eGFR NON- AMER. (test code = 32595) 102 ML/MIN/1.73 CALC BUN/CREAT (test code = [...] (test code = 2219) 88 U/L N-TERMINAL [id number] 15:43:00* Test Item Value Reference Range Interpretation Comme nts NT-proBNP (test code = 0384450477) <11 See_Comment [Automated message] The system which generated this result transmitted reference range: <=125 pg/mL. The reference range was not used to interpret this result as normal/abnormal. KRYSTLE (test code = KRYSTLE) Biotin has been reported to cause a negative bias, interpret results relative to patient's use of biotin. Lab Interpretation (test code = 91811-3) Normal [facility] WITH [id number] 15:27:00* Test Item Value Reference Range Interpretation Comme nts WBC (test code = 6690-2) See_Comment [Automated [employer]] The system which generated this result transmitted reference range: 4.20 - 10.70 10*3/?L. The reference range was not used to interpret this result as normal/abnormal. RBC (test code = 789-8) See_Comment [Automated [employer]] The system which generated this result [...] g/dL 31.2-35 H RDW-SD (test code = 17417-8) 37.3 fL 38.5-51.6 L RDW-CV (test code = 788-0) 11.9 % 12.1-15.4 L PLT (test code = 777-3) See_Comment [Automated messa ge] The system which generated this result transmitted reference range: 150 - 328 10*3/?L. The reference range was not used to interpret this result as normal/abnormal. MPV (test code = 20648-7) 9.7 fL 9.8-13 L NRBC/100 WBC (test code = 1318119195) See_Comment [Automated me ssage] The system which generated this result transmitted reference range: 0.0 - 10.0 /100 WBCs. The reference range was not used to interpret this result as normal/abnormal. NRBC x10^3 (test code = 7689846711) <0.01 See_Comment [Automated messa ge] The system which generated this result transmitted reference range: 10*3/?L. The reference range was not used to interpret this result as normal/abnormal. GRAN MAT (NEUT) % (test code = 770-8) 29.2 % IMM GRAN % (test code = 5697886363) 0.20 % LYMPH % (test code = 736-9) 59.0 % MONO % (test code = 5905-5) 10.1 % EOS % (test code = 713-8) 1.1 % BASO % (test code = 706-2) 0.4 % GRAN MAT x10^3(ANC) (test code = 0055737297) 1.57 10*3/uL 1.99-6.95 L IMM GRAN x10^3 (test code = 9752663159) <0.03 0-0.06 LYMPH x10^3 (test code = 731-0) 3.17 10*3/uL 1.09-3.23 MONO x10^3 (test code = 742-7) 0.54 10*3/uL 0.36-1.02 EOS x10^3 (test code = 711-2) 0.06 10*3/uL 0.06-0.53 BASO x10^3 (test code = 704-7) <0.03 0.01-0.09 Lab Interpretation (test code = 88186-2) [facility] 1 [id number] 15:13:32No acute cardiopulmonary process. Preliminary Report Dictated [...] thisstudy and agree withthe above report.[facility]iscoTROP[facility] [id number] 14:59:00* Test Item Value Reference Range Interpretation Comme nts TROPONIN I (test code = 7968384807) <0.012 See_Comment [Automated message] The system which [...] biotin. ? Lab Interpretation (test code = 91085-2) Normal [facility]. METABOLIC PANEL (62328)2020-09-30 14:59:00* Test Item Value Reference Range Interpretation Comme nts NA (test code = 2715552271) 139 mmol/L 135-145 K (test code = 5710768056) 3.8 mmol/L 3.5-5 CL (test code = 7134140634) 103 mmol/L 98-108 CO2 TOTAL (test code = 6363881552) 26 mmol/L 23-31 AGAP (test code = 4334868264) 2-16 BUN (test code = 0480898021) 11 mg/dL 7-23 GLUCOSE (test code = 3513812971) 163 mg/dL 70-110 H CREATININE (test code = 8443020016) 0.85 mg/dL 0.6-1.25 TOTAL BILI (test code = 3834543629) 0.6 mg/dL 0.1-1.1 CALCIUM (test code = 7103989342) 9.0 mg/dL 8.6-10.6 T PROTEIN (test code = 5775275674) 8.0 g/dL 6.3-8.2 ALBUMIN (test code = 9489324079) 4.4 g/dL 3.5-5 ALK PHOS (test code = 6753190346) 75 U/L 34-122 ALTv (test code = 1742-6) 61 U/L 5-50 H AST(SGOT) (test code = 4227095097) 54 U/L 13-40 H eGFR Calculation (Non-) (test code = 8141041801) mL/min/1.73m2 eGFR Calculation () (test code = 7490343352) mL/min/1.73m2 KRYSTLE (test code = KRYSTLE) Association [...] imaging tests). Lab Interpretation (test code = 47410-0) [facility]normal [facility] [id number] 14:59:00* Test Item Value Reference Range Interpretation Comme [facility] LIPASE (test code = 1900923044) 116 U/L 0-220 Lab Interpretation (test cod e = 21310-1) Normal [facility]roponin [id number] 04:30:00* Test Item Value Reference Range Interpretation Comme nts TROPONIN I (test code = 0042918575) <0.012 See_Comment [Automated message] The system which [...] biotin. ? Lab Interpretation (test code = 14840-7) Normal [facility] Metabolic [id number] 03:24:00* Test Item Value Reference Range Interpretation Comme nts NA (test code = 5546336387) 137 mmol/L 135-145 K (test code = 1065000332) 4.7 mmol/L 3.5-5 CL (test code = 0698903277) 101 mmol/L 98-108 CO2 TOTAL (test code = 1479167884) 27 mmol/L 23-31 AGAP (test code = 7512869459) 2-16 BUN (test code = 6526297340) 16 mg/dL 7-23 GLUCOSE (test code = 5759651556) 226 mg/dL 70-110 H CREATININE (test code = 9386703923) 1.13 mg/dL 0.6-1.25 TOTAL BILI (test code = 8199703518) 0.7 mg/dL 0.1-1.1 CALCIUM (test code = 8428498693) 9.3 mg/dL 8.6-10.6 T PROTEIN (test code = 3141999185) 7.8 g/dL 6.3-8.2 ALBUMIN (test code = 8999681811) 3.9 g/dL 3.5-5 ALK PHOS (test code = 5073096066) 79 U/L 34-122 ALTv (test code = 1742-6) 62 U/L 5-50 H AST(SGOT) (test code = 1609409944) 49 U/L 13-40 H eGFR Calculation (Non-) (test code = 3342510019) mL/min/1.73m2 eGFR Calculation () (test code = 5118495391) mL/min/1.73m2 KRYSTLE (test code = KRYSTLE) Association [...] imaging tests). Lab Interpretation (test code = 12469-5) Abnormal [facility]isco[facility], [id number] 03:23:00* Test Item Value Reference Range Interpretation Comme nts LIPASE (test code = 6157617430) 317 U/L 0-220 H Lab Interpretation (test cod e = 36201-6) Abnormal [facility] with [id number] 03:21:00* Test Item Value Reference Range Interpretation Comme nts WBC (test code = 6690-2) See_Comment [[employer]] The system which generated this result transmitted reference range: 4.20 - 10.70 10*3/?L. The reference range was not used to interpret this result as normal/abnormal. RBC (test code = 789-8) See_Comment [Automated [employer]] The system which generated this result transmitted [...] g/dL 31.2-35 H RDW-SD (test code = 91897-5) 37.9 fL 38.5-51.6 L RDW-CV (test code = 788-0) 12.4 % 12.1-15.4 PLT (test code = 777-3) See_Comment [Automated messa ge] The system which generated this result transmitted reference range: 150 - 328 10*3/?L. The reference range was not used to interpret this result as normal/abnormal. MPV (test code = 92077-0) 9.7 fL 9.8-13 L NRBC/100 WBC (test code = 5111926349) See_Comment [Automated [employer] ssage] The system which generated this result transmitted reference range: 0.0 - 10.0 /100 WBCs. The reference range was not used to interpret this result as normal/abnormal. NRBC x10^3 (test code = 3111220585) <0.01 See_Comment [Automated [employer] ge] The system which generated this result transmitted reference range: 10*3/?L. The reference range was not used to interpret this result as normal/abnormal. GRAN MAT (NEUT) % (test code = 770-8) 36.7 % IMM GRAN % (test code = 5321721069) 0.10 % LYMPH % (test code = 736-9) 50.9 % MONO % (test code = 5905-5) 11.1 % EOS % (test code = 713-8) 0.8 % BASO % (test code = 706-2) 0.4 % GRAN MAT x10^3(ANC) (test code = 3422018233) 2.59 10*3/uL 1.99-6.95 IMM GRAN x10^3 (test code = 2927306524) <0.03 0-0.06 LYMPH x10^3 (test code = 731-0) 3.61 10*3/uL 1.09-3.23 H MONO x10^3 (test code = 742-7) 0.79 10*3/uL 0.36-1.02 EOS x10^3 (test code = 711-2) 0.06 10*3/uL 0.06-0.53 BASO x10^3 (test code = 704-7) 0.03 10*3/uL 0.01-0.09 Lab Interpretation (test code = 98492-9) Abnormal [facility] History and Physical Notes Date/Time Note Provider [...] 220). On a 12/2022 hospital stay at [facility], he was diagnosed with an idiopathic [...] by mouth daily. 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 Gibran Mcadams MD [facility] Notes Date/Time Note Provider Source 2024-06-07 20:01:54 Pt given printed and verbal discharge instructions regarding chest pain unspecified, encouraged hydration. 2 Prescriptions sent to pharmacy. Discussed diclofenac and to take with food to avoid GI distress. Discussed Tylenol # 3 side affects and to avoid driving/operating machinery/or engaging in activities requiring alertness while taking. Pt verbalized understanding of instructions, pt awake alert oriented, resp reg unlabored, skin w/d, color appropriate for race, moves all ext well,pt encouraged to follow up with pcp and cardiology. Advised to seek medical attention for new/prolonged/worsening of symptoms, Symptoms improved. No adverse reaction to meds given in ER noted upon discharge. PIV d'cd, dressing to site, catheter in tact. Awake, alert oriented, resp reg unlabored, skin w/d, pt leaving amb with steady gait, in no apparent distress. Stephany Membreno RN [facility] 2024-06-07 17:51:04 Patient does not want another dose of nitro. [facility] 2024-06-07 16:53:18 Patient reports getting flu shot about 2 hours ago and now developing shortness of breath. Also has some chest pressure. Yosi Garcia RN [facility] 2024-04-02 12:54:12 Pt given printed and verbal [...] distress. Left with . Caty Pang RN [facility] 2024-04-02 08:35:20 Pt arrives with c/o upper abd pain, pt states known hx pancreatitis, had recent labs and lipase elevated. Pain present for one week, worsening last 2 days. Phone insolvency practitioner recommended coming to ER. Pt has been hospitalized for this. Aminta Novoa RN [facility] 2024-03-30 08:10:34 Chief Complaint Patient presents with Consultation Yosi Dos Santos LVN [facility] 2024-02-20 23:53:18 Pt given printed and [...] in no apparent distress. Carol Siddiqui RN [facility] 2024-02-20 21:42:07 Pt arrived ambulatory with complaints of abdominal pain and constipation x4 days. Pt reports hx of pancreatitis but has been out of Creon prescription for a while. Debora Bhatti RN [facility] 2023-12-09 23:47:26 Pt discharged with diagnosis of lumbar radiculopathy. Printed and verbal instructions reviewed with and given to pt. Prescriptions given x 2. Pt verbalized understanding of teaching, medication, and recommended follow-up. Denies questions or concerns at this time. Pt ambulatory at discharge. Appears in no apparent distress. No ataxia noted. Accompanied by family. Shira Brumfield RN [facility] 2023-12-09 20:10:35 CC: Pt reports left [...] amb with steady gait Carol Wu RN [facility] 2023-12-09 19:46:00 [facility] Emergency Department Note Patient Name: Noah Putnam Date of : 1970 53 year old male Treatment Room: [facility] Primary Care Physician: Jimmy Brennan Patient Escorted by: Self [9] Mode of Arrival: Personal means [1] EMS Treatment Prior to ED Arrival: LIABILITY CLAIMS REPRESENTATIVE treatment: None Travel and Exposure Screening: Symptoms [...] years ago while he was living in [place]. As a result of said fall, pt developed chronic recurrent low back pain. No fever or chills. No cauda equina symptoms History provided by: Patient and medical records rn behavioral health used: No Difficulty Urinating Presenting symptoms: no [...] 0.01 - 0.09 10*3/uL COMP. METABOLIC PANEL (36158) - Abnormal NA 141 135 - 145 [...] CONTRAST Cbc with Diff Comp. Metabolic Panel (61890) Urinalysis Orders Placed This Encounter Medications ketorolac [...] -- ED COURSE Diagnosis/Impression as of 12/09/23 230 Hematuria of unknown cause Lumbar radiculopathy Procedures: [...] hours as needed (Abdominal pain or cramping). GBMNMM-SZIGNBRD-VBVDGYP (CREON) 3,000-9,500- 15,000 UNIT CAPSULE Take 1 [...] Jimmy Brennan MD Relationship: PCP - [facility] [address] [place] [address] Amrik Graham MD Specialty: ORT-ORTHOPAEDIC SURGERY [address] [facility] [id number] Electronically signed by: Abraham Orantes MD 12/09/232306 T [facility] 2023-10-06 14:20:14 Chief Complaint Patient presents with New Patient Blood Pressure the patient States he will bring in all his meds the next ov [facility] 2023-07-23 07:15:00 [facility] ([facility]) EMERGENCY PROVIDER REPORT REPORT#:[id number] REPORT STATUS: Signed DATE:07/23/23 TIME: 714 PATIENT: NOAH PUTNAM UNIT #: [id number] ROOM/BED: AGE: 52 SEX: M PCP PHYS: DOES_NOT KNOW SERVICE AUTHOR: Tracy Hall MD R1 LOCATION: [facility] * ALL edits or amendments must [...] showed that the patient was seen in [facility] ED on 07/[address] AP was negative for gallbladder, biliary, pancreatic and GI disease. Patient sees a GI doctor at [facility] and is in the process of getting [...] # (Auto) (1.0 - 3.8 K/mm3) 2.61 [place] # (Auto) (0.1 - 0.8 K/mm3) 0.68 Eos # (Auto) (0.0 - 0.2 K/mm3) 0.04 Baso # (Auto) (0.0 - 0.2 K/mm3) 0.02 Nucleated RBCs # (Man) (0.0 - 0.1 K/mm3) 0.00 Urines Urine Color (YELLOW) YELLOW Urine Appearance (CLEAR) CLEAR Urine pH (5.0 - 9.0) 6.0 Ur Specific [place] (1.003 - 1.030) 1.025 Urine Protein (NEGATIVE [...] in the ED, and will go see [facility] GI in [place] after discharge. We will send Norflex, Bentyl, [...] STA 07/23 531 DC 07/23 IV 07/23 532 0546 Diagnostic Agents Sig/Shirin Start time Last Medication Dose Route Stop Time Status Admin Iopamidol 0 .STK-MED ONE 07/23 737 DC 07/23 IV 0812 Electrolytic, Caloric, And [...] B/P 146/89 07/23 945 B/P Mean 108 11/09 0945 O2 Delivery Room air 07/23 945 Temp [...] Referrals Provider Referral: Karina Nascimento MD Address: [address] [place] [address] Provider Referral: Peter Pérez MD Address: [address] [place] [address] Provider Referral: Adebayo Bagley COBBLER APPRENTICE Address: [address] [place] [address] Provider Referral: Carola Brooks COBBLER APPRENTICE Address: [address] [place] [address] Provider Referral: Mary Ibarra MD Address: [address] [place] [address] Provider Referral: Woody Roman COBBLER APPRENTICE Address: [address] [place] [address]. [address] [place] [address] Supervising Physician Note Resident Saw Pt This [...] for patient's abdominal pain. Patient called his collator operator for which she is going to another hospital but the GI works at to be admitted for further care and evaluation. Discussed no indication for admission at this facility which patient understands and agrees with plan. Patient is discharged home with analgesia antiemetics at 1039 at 1048 RPT #:[id number] [facility] 2023-07-23 05:32:00 [facility] ([facility]) EMERGENCY PROVIDER REPORT REPORT#:[id number] REPORT STATUS: Signed DATE:07/23/23 TIME: 531 PATIENT: NOAH PUTNAM UNIT #: [id number] ROOM/BED: AGE: 52 SEX: M PCP PHYS: SERVICE DT: AUTHOR: Rita Ashford LOCATION: [facility] * ALL edits or amendments must [...] History Left wrist surgery at 0533 RPT #:[id number] [facility] 2023-07-01 23:26:00 [id number] [place], [place] PATIENT NAME: NOAH PUTNAM ADMIT DATE: 07/01/23 ACCOUNT NO: [id number] ROOM NO: AGE: 52 REPORT TYPE: ELECTROCARDIOGRAM SEX: M : 74 ADMITTING PHYSICIAN: ATTENDING PHYSICIAN:Jessie Gleason DO Order: [id number] Test Reason : abdominal pain Test Date/Time [...] available Confirmed by JESSIE GLEASON DO ([id number]), supervising film or videotape editor MARCIA GALVEZ ([id number]) on 07/20/2023 3:03:25 PM Referred By: Self Referred Confirmed by:JESSIE GLEASON DO at 1501 PATIENT NAME: NOAH PUTNAM [facility] 2023-07-01 23:22:00 [facility] OR A [facility] EMERGENCY PROVIDER REPORT REPORT#:[id number] REPORT STATUS: Signed DATE:07/01/23 TIME: 2321 PATIENT: NOAH PUTNAM UNIT #: [id number] ROOM/BED: AGE: 52 SEX: M PCP PHYS: [...] care urgent care and was referred to [place] [facility]. Patient states that he went to [place] [facility] and was discharged with tramadol after [...] % (Auto) (24 - 44 %) 41.1 [place] % (Auto) (0.0 - 4.0 %) 7.4 [...] SCAN - CT ABD PELVIS W/CONT 07/01 9409 Report Impression - Status: SIGNED Entered: 07/02/2023 0009 IMPRESSION: No acute findings in the abdomen or pelvis. Mildly enlarged prostate with a nodular component protruding into the bladder base. Correlation with PSA is recommended. Impression By: [email or web address] - Jennifer Bass MD ECG #1 Interpretation Text/Dict Note Sinus rhythm with frequent PVCs Nonspecific T wave abnormality Date 07/01/23 Time 2329 Interpreted by ED physician JUSTIN ECG Interpretation Normal rate, Normal sinus rhythm, [...] 07/01 2325 DC 07/01 IV 2327 Differential Diagnosis )( Differential Diagnosis Appendicitis, Constipation, [...] Screening/Cessation Denies tobacco use at 0109 RPT #:[id number] END OF REPORT [facility] 2023-05-20 15:08:22 Formatting of this n ote is different from the original. Chief Complaint Patient presents with Consultation Andreia Regalado CMA I [facility] 2023-05-07 23:22:46 Formatting of this n ote might be different from the original. Discharge instructions reviewed with patient. Follow up care discussed. All questions answered by RN. Patient ambulatory to [facility]. Patient in possession of all belongings. RR even and unlabored, VSS, NAD noted. T Steffanie Easley RN [facility] 2023-05-07 23:01:52 Formatting of this n ote might be different from the original. DC hold for fluid admin. T [facility] 2023-05-07 22:51:08 Formatting of this n ote might be different from the original. This RN chaperoned DO for rectal exam. [facility] 2023-05-07 20:30:00 Formatting of this n ote [...] Patient reports he was seen at the [facility] a few days ago and treated [...] RR even and unlabored. VSS. NAD noted. [facility] 2023-05-07 17:35:38 Formatting of this n ote might be different from the original. Noah Putnam is a 52 year old male presenting to ED with c/o abd pain. Patient reports hx of pancreatitis. Patient reports began having blood in stool today. Patient to green chairs due to ED saturation Helene Newell RN [facility] 2023-05-02 00:32:03 Formatting of this n [...] and in no distress. Marcelo Tsai RN [facility] 2023-05-01 21:28:00 Formatting of this n [...] in the sun today." Lelo Carbajal RN [facility] 2023-04-22 13:03:22 Formatting of this n [...] in no apparent distress, Jacki Rodriguez RN [facility] 2023-04-22 10:35:21 Formatting of this n ote might be different from the original. Patient ate some potatoes from meal tray, states stomach began to cramp. Patient provided juice, states that his boss is going to being him some food that he will also try but states stomach is cramping. Caty Pang RN [facility] 2023-04-22 10:28:09 Formatting of this n ote might be different from the original. Patient provided meal tray. [facility] 2023-04-22 10:18:30 Formatting of this n ote might be different from the original. Patient encouraged to eat, advised of plan of care. [facility] 2023-04-22 06:30:24 Formatting of this n ote might be different from the original. Second liter of fluids completed, pt states he is still unable to urinate, RN gave pt a urinal and encouraged pt to try, pt stated that he will but he does not feel like going yet. T Carol Siddiqui RN [facility] 2023-04-22 05:20:00 Formatting of this n ote might be different from the original. Pt walked to the bathroom, cannot void. Provider informed, orders received [facility] 2023-04-22 03:56:00 Formatting of this n ote [...] ext without difficulty, amb with steady gait T Carol Wu RN [facility] 2023-04-22 03:50:00 Formatting of this n [...] mg (25 mg Slow IV Push Given 04/22/23 042) NaCl 0.9% (NS) bolus infusion 1,000 mL [...] components within normal limits COMP. METABOLIC PANEL (96327) - Abnormal; Notable for the following components: [...] type Natali Alexander DO 04/22/23 1238 T [facility] 2023-04-16 08:49:36 Formatting of this n [...] not discharge papers complaining about the service. T Rachana Pratt RN [facility] 2023-04-16 08:17:00 Formatting of this n ote might be different from the original. This RN and Provider at bedside. Provider explaining to pt that some of his pain could be due to being constipated, images showed pt is constipated. [facility] 2023-04-16 07:56:11 Formatting of this n ote might be different from the original. Pt returns from X-ray, NAD noted, family remains at bedside. [facility] 2023-04-16 07:41:37 Formatting of this n ote might be different from the original. Pt transported to X-ray via [facility] transport. [facility] 2023-04-16 07:20:37 Formatting of this n [...] bedside. Provider and this RN at bedside. [facility] 2023-04-16 07:08:22 Formatting of this n ote might be different from the original. Noah Putnam is a 52 year old male presenting to ED with c/o abd pain. Patient reports pain for a few weeks. Patient reports was recently seen and diagnosed with pancreatitis. Patient endorses pain to abd and radiates to back. Patient to room for further eval T Helene Newell RN [facility] 2023-04-16 06:46:00 Formatting of this n ote is different from the original. [facility] Emergency Department Note Patient Name: Noah Putnam Date of : 1970 52 year old male Treatment Room: [address] [place] [address] Primary Care Physician: PATIENT DOES NOT HAVE A PCP Patient Escorted by: Family [5] Mode of Arrival: Personal means [1] EMS Treatment Prior to ED Arrival: LIABILITY CLAIMS REPRESENTATIVE treatment comments: Morning medications Travel and Exposure [...] radiates to back History provided by: Patient rn behavioral health used: No Abdominal Pain Pain location: Generalized [...] 0.01 - 0.09 10*3/uL COMP. METABOLIC PANEL (81554) - Abnormal NA 142 135 - 145 [...] VW CBC WITH DIFF COMP. METABOLIC PANEL (94986) LIPASE TROPONIN I Orders Placed This Encounter Medications NaCl 0.9% (NS) bolus infusion 1,000 mL ketorolac (TORADOL) injection 30 mg dicyclomine (BENTYL) injection 20 mg famotidine (PEPCID (PF)) injection 20 mg lactulose (CEPHULAC) solution 45 mL qwyxyc-ondfaien-jfnjrhl (CREON) 12,000-38,000 -60,000 unit capsule 2 capsule enalaprilat (VASOTEC I.V.) injection 1.25 mg tsuppa-tohjcsax-ityzeze (CREON) 3,000-9,500- 15,000 unit capsule hyoscyamine sulfate [...] hours as needed (Abdominal pain or cramping). GAGYCL-DQXTAOKU-PAILQMU (CREON) 3,000-9,500- 15,000 UNIT CAPSULE Take 1 [...] signed by: Adelaide Goodwin MD 04/16/23 0850 [facility] 2023-04-01 03:22:04 Formatting of this n [...] in no apparent distress. Lelo Carbajal RN [facility] 2023-04-01 00:02:06 Formatting of this n ote might be different from the original. History of chronic pancreatitis. Mid upper abdominal pain for 4 days. Complaining of oily stool. Vomited x2. Anuradha Nolen RN [facility]
--- NOTE | 2024-08-05 17:19 | RAD REPORT ---
Procedure: Chest Single View HISTORY: Cough COMPARISON: April 2024 FINDINGS: The lungs appear clear of acute infiltrate. No significant pleural effusion noted. The heart is normal size. IMPRESSION: No acute abnormality is displayed.
[2024-08-05] MEDS ORDERED: NA CHLORIDE 0.9% 500 ML ONE (17:20)
[2024-08-05 17:24] LABS: Specific Gravity 1.014 (1.005-1.030); Urine Bilirubin NEGATIVE (Negative); Urine Blood Negative (Negative); Urine Clarity Clear (Clear); Urine Color Light-Yellow (Yellow); Urine Glucose NEGATIVE (Negative); Urine Ketones NEGATIVE (Negative); Urine Microscopic Reflex YN NO UMIC; Urine Nitrite NEGATIVE (Negative); Urine Protein NEGATIVE (Negative); Urine Urobilinogen Normal (Normal)
[2024-08-05 17:32] LABS: Absolute Basophils 0.1 K/uL (0-0.5); Absolute Eosinophils 0.1 K/uL (0-0.5); Absolute Lymphocytes (CBC) 2.1 K/uL (0.7-4.9); Absolute Monocytes 0.4 K/uL (0.1-1.3); Absolute Neutrophil 4.7 K/uL (1.8-8.0); Basophils % 0.9 % (0-1.3); Eosinophils % 0.7 % (0-4.4); Hematocrit 43.2 % (39.6-49.0); Lymphocytes % 28.6 % (15.3-44.8); MCH 30.2 pg (27.0-35.0); MCHC 34.7 g/dL (32.0-36.0); MPV 7.7 fL (7.6-11.3); Monocytes % 5.2 % (3.3-12.3); Neutrophils % 64.6 % (41.7-73.7); Nucleated Red Blood Cells % 0.1 % (0-0); Platelets 195 thou/uL (152-406); RBC Red Blood Cell Count 4.96 M/uL (4.33-5.43); Red Cell Distribution Width 13.2 % (12.1-15.2)
[2024-08-05 17:33] LABS: PT Prothrombin Time 12.7 SECONDS (9.4-12.5); Protime INR 1.14
[2024-08-05 17:42] LABS: ALT/SGPT 33 U/L (16-61); AST/SGOT 26 U/L (15-37); Albumin 3.6 g/dL (3.4-5.0); Albumin/Globulin Ratio 0.9 (1.1-1.8); Alkaline Phosphatase 49 U/L (45-117); Anion Gap 6.9 mEq/L (5.0-15.0); BUN Blood Urea Nitrogen 12 mg/dL (7-18); Bicarbonate 31 mEq/L (21-32); Bilirubin Total 0.5 mg/dL (0.2-1.0); Globulin 3.9 g/dL (2.3-3.5); Glomerular Filtration Rate 72 ml/min (=/>90); Glucose Level 125 mg/dL (74-106); Lipase 40 U/L (13-75); Magnesium 2.1 mg/dL (1.6-2.4); NT PRO-BNP 51 pg/mL (<125); Potassium 3.9 mEq/L (3.5-5.1); Protein, Total 7.5 g/dL (6.4-8.2); Sodium Level 139 mEq/L (136-145); Troponin High Sensitivity 3.4 pg/mL (<58.9)
[2024-08-05 17:43] LABS: Bilirubin Direct < 0.2 mg/dL (0-0.2); Bilirubin Indirect, Calculated 0.3 mg/dL (0.2-0.8)
[2024-08-05] MEDS ORDERED: ONDANSETRON 4 MG/2 ML VIAL ONE (18:05)
[2024-08-05] MEDS ORDERED: AMLODIPINE 10 MG TAB ONE (18:05)
[2024-08-05] MEDS ORDERED: MORPHINE 4 MG/ML SYR ONE (18:05)
--- NOTE | 2024-08-05 18:37 | RAD REPORT ---
EXAM: CT brain without contrast HISTORY: Headache COMPARISON: 2021 TECHNIQUE: Multiple contiguous axial images were obtained and a CT of the brain without contrast.. Sagittal and coronal reconstruction performed. Automated exposure control, adjustment of the mA and/or kV according to patient size, and/or iterative reconstruction. Unless otherwise specified, incidental f indings do not require dedicated imaging follow-up FINDINGS: An intracranial bleed is not seen Ventricles are normal caliber No extra-axial fluid collection noted No significant hypodensity within the brain No fluid within the visualized sinuses or mastoids noted. IMPRESSION: No acute intracranial abnormality noted. If the patient's symptoms persist MRI of the brain would be recommended.
--- NOTE | 2024-08-05 18:45 | RAD REPORT ---
EXAMINATION: CT ABDOMEN AND PELVIS WITHOUT CONTRAST CLINICAL INDICATION: Abdominal pain TECHNIQUE: CT abdomen and pelvis was performed, as per department protocol. IV contrast and oral was not administered.Axial, sagittal and coronal reconstructions were obtained. One or more of the following dose reduction techniques were used: Automated exposure control, adjustment of the mA and/o r kV according to the patient size, and/or iterative reconstruction. Unless otherwise specified, incidental findings do not require dedicated imaging follow-up. [id number]. COMPARISON: April 2024 FINDINGS: The lack of intravenous and oral contrast limits evaluation of solid organs, vessels and bowel. The liver, spleen, pancreas, adrenals and kidneys appear grossly normal No evidence of diverticulitis Normal appendix. Small left inguinal hernia contains fat. Prominent soft tissue anterior prostate abuts the base of the bladder. Spondylosis L5-S1 IMPRESSION: Prominent soft tissue anterior prostate abuts the base of the bladder.. This probably is prostatic hy pertrophy. Prostate neoplasm can also have this appearance and should be correlated with appropriate lab values.
[2024-08-05] MEDS ORDERED: KETOROLAC 30 MG/ML INJ ONE (20:01)
[2024-08-05] MEDS ORDERED: METOCLOPRAMIDE 10 MG/2mL INJ ONE (20:01)
--- NOTE | 2024-08-05 20:41 | EDPHYS ---
Physician Documentation [facility] Name: Noah Putnam Age: 53 yrs Sex: Male : 1970 Arrival Date: 08/05/2024 Time: 16:25 Bed 11 Private MD: DINA Physician Jimbo Rivera HPI: 08/05 17:45 This 53 yrs old Black Male presents to ER via Ambulatory with complaints of High Blood abe Pressure, Dizziness, Headache. 17:45 The patient has elevated blood pressure and discovered this at home, with a home abe device. Onset: The symptoms/episode began/occurred 3 day(s) ago. Modifying factors: The symptoms are aggravated by activity, The symptoms are alleviated by remaining still. Severity of symptoms: At its worst the blood pressure was moderate, in the emergency department the blood pressure is unchanged. The patient has experienced similar episodes in the past, a few times. Historical: - Allergies: 16:59 Bee Venom; ss - Home Meds: 16:59 amlodipine 10 mg tab 1 tab once daily [Active]; lisinopril 10 mg Oral tab 1 tab once ss daily [Active]; - PMHx: 16:59 chronic kidney disease; Chronic Pancreatitis; Herniated disc; Hypertension; ss - PSHx: 16:59 left arm surgery; ss - Immunization history:: Adult Immunizations up to date. - Infectious Disease History:: Denies. - Social history:: Smoking status: Patient denies any tobacco usage or history of. ROS: 17:46 Constitutional: Negative for fever, chills, and weight loss, Eyes: Negative for injury, abe pain, redness, and discharge, ENT: Negative for injury, pain, and discharge, Neck: Negative for injury, pain, and swelling, Cardiovascular: Negative for chest pain, palpitations, and edema, Respiratory: Negative for shortness of breath, cough, wheezing, and pleuritic chest pain, Back: Negative for injury and pain, : Negative for injury, bleeding, discharge, and swelling, MS/Extremity: Negative for injury and deformity, Skin: Negative for injury, rash, and discoloration, Psych: Negative for depression, anxiety, suicide ideation, homicidal ideation, and hallucinations, Allergy/Immunology: Negative for hives, rash, and allergies, Endocrine: Negative for neck swelling, polydipsia, polyuria, polyphagia, and marked weight changes, Hematologic/Lymphatic: Negative for swollen nodes, abnormal bleeding, and unusual bruising, 17:46 Abdomen/GI: Positive for abdominal pain, of the right upper quadrant and left upper quadrant, had egd and colonoscope today, 17:46 Neuro: Positive for dizziness, headache, Exam: 17:46 Constitutional: This is a well developed, well nourished patient who is awake, alert, abe and in no acute distress. Head/Face: Normocephalic, atraumatic. Eyes: Pupils equal round and reactive to light, extra-ocular motions intact. Lids and lashes normal. Conjunctiva and sclera are non-icteric and not injected. Cornea within normal limits. Periorbital areas with no swelling, redness, or edema. ENT: Nares patent. No nasal discharge, no septal abnormalities noted. Tympanic membranes are normal and external auditory canals are clear. Oropharynx with no redness, swelling, or masses, exudates, or evidence of obstruction, uvula midline. Mucous membranes moist. Neck: Trachea midline, no thyromegaly or masses palpated, and no cervical lymphadenopathy. Supple, full range of motion without nuchal rigidity, or vertebral point tenderness. No Meningismus. Chest/axilla: Normal chest wall appearance and motion. Nontender with no deformity. No lesions are appreciated. Cardiovascular: Regular rate and rhythm with a normal S1 and S2. No gallops, murmurs, or rubs. Normal PMI, no JVD. No pulse deficits. Respiratory: Lungs have equal breath sounds bilaterally, clear to auscultation and percussion. No rales, rhonchi or wheezes noted. No increased work of breathing, no retractions or nasal flaring. Back: No spinal tenderness. No costovertebral tenderness. Full range of motion. Male : Normal genitalia with no discharge or lesions. Skin: Warm, dry with normal turgor. Normal color with no rashes, no lesions, and no evidence of cellulitis. MS/ Extremity: Pulses equal, no cyanosis. Neurovascular intact. Full, normal range of motion. Neuro: Awake and alert, GCS 15, oriented to person, place, time, and situation. Cranial nerves II-XII grossly intact. Motor strength 5/5 in all extremities. Sensory grossly intact. Cerebellar exam normal. Normal gait. Psych: Awake, alert, with orientation to person, place and time. Behavior, mood, and affect are within normal limits. 17:46 ECG was reviewed by the Attending Physician. 17:46 Abdomen/GI: Inspection: distension, that is mild, Bowel sounds: normal, Palpation: mild abdominal tenderness, in the epigastric area, right upper quadrant and left upper quadrant, Liver: no appreciated palpable abnormalities, Hernia: not appreciated, 17:46 Musculoskeletal/extremity: DVT Exam: No signs of deep vein thrombosis. no pain, no swelling, no tenderness, negative Homans' sign noted on exam, no appreciated bluish discoloration, no erythema, no increased warmth, Vital Signs: 16:55 BP 153 / 104; Pulse 71; Resp 19; Temp 98.3; Pulse Ox 100% on R/A; Weight 120.2 kg; ss 18:05 BP 144 / 78; ss 18:16 BP 143 / 93; Pulse 69; ss 18:29 BP 151 / 96; Pulse 63; ss 20:11 BP 155 / 101; Pulse 74; Resp 16; Pulse Ox 94% on R/A; jb4 NIH Stroke Scale Scores: 17:56 NIHSS Score: 0 abe Mary Coma Score: 17:57 Eye Response: spontaneous(4). Motor Response: obeys commands(6). Verbal Response: abe oriented(5). Total: 15. MDM: 16:36 Medical Screening Exam initiated abe 17:00 Medical Screening Exam initiated abe 17:57 Differential diagnosis: cluster headache, cerebral vascular accident, hypertensive abe crisis, Malignant HTN, CVA, intracerebral hemorrhage, hypoglycemia, hyponatremia, intracerebral hemorrhage, migraine, sinusitis, subdural hematoma, temporal arteritis, tension headache, traumatic injuries, uremia, vasomotor headache, bowel obstruction, cholecystitis, Cholelithiasis, diverticulitis, gastritis, GI Bleed, Hepatitis, myocardia ischemia or infarction, non-specific abd pain, pancreatitis, Peptic Ulcer Disease, Perf. Duodenal Ulcer, Perf. Gastric Ulcer, Peritonitis, Prostatitis, Ureterolithiasis. Data reviewed: vital signs, nurses notes, lab test result(s), EKG, radiologic studies, CT scan, plain films. Consideration of Admission/Observation Escalation of care including admission/observation considered. I considered the following discharge prescriptions or medication management in the emergency department Medications were administered in the Emergency Department. See MAR. Independent interpretation of the following test(s) in the Emergency Department EKG: See my EKG interpretation above. Test considered but Not performed: Ultrasound NO ABD USG. Care significantly affected by the following chronic conditions: Hypertension, Obesity, Chronic Kidney Disease, CHRONIC PANCREATITIS. Counseling: I had a detailed discussion with the patient and/or guardian regarding the historical points, exam findings, and any diagnostic results supporting the discharge/admit diagnosis, the presence of at least one elevated blood pressure reading (>120/80) during this emergency department visit, lab results, radiology results, the need for outpatient follow up, for definitive care, a electrical equipment assembler, a family practitioner, a hand tapper. 08/05 16:37 Order name: Basic Metabolic Panel; Complete Time: 17:54 [facility] 08/05 16:37 Order name: CBC with Diff; Complete Time: 17:54 [facility] 08/05 16:37 Order name: LFT's; Complete Time: 17:54 [facility] 08/05 16:37 Order name: Magnesium; Complete Time: 17:54 [facility] 08/05 16:37 Order name: NT PRO-BNP; Complete Time: 17:54 [facility] 08/05 16:37 Order name: PT-INR; Complete Time: 17:37 [facility] 08/05 16:37 Order name: Troponin HS; Complete Time: 17:54 [facility] 08/05 16:37 Order name: Lipase; Complete Time: 17:54 [facility] 08/05 16:37 Order name: Urinalysis w/ reflexes; Complete Time: 17:37 [facility] 08/05 16:37 Order name: XRAY Chest (1 view); Complete Time: 17:37 [facility] 08/05 17:45 Order name: CT Head Brain wo Cont; Complete Time: 19:41 [facility] 08/05 19:41 Interpretation: Report reviewed. 08/05 17:45 Order name: CT Abd/Pelvis - Without Contrast; Complete Time: 19:41 [facility] 08/05 19:42 Interpretation: Report reviewed. 08/05 16:37 Order name: Cardiac monitoring; Complete Time: 17:17 [facility] 08/05 16:37 Order name: EKG - Nurse/Tech; Complete Time: 17:13 [facility] 08/05 16:37 Order name: IV Saline Lock; Complete Time: 17:17 [facility] 08/05 16:37 Order name: Labs collected and sent; Complete Time: 17:17 [facility] 08/05 16:37 Order name: O2 Per Protocol; Complete Time: 17:17 abe 08/05 16:37 Order name: O2 Sat Monitoring; Complete Time: 17:17 abe EC:46 Rate is 72 beats/min. Rhythm is regular. QRS [place] is Normal. DC interval is normal. QRS abe interval is normal. QT interval is normal. No Q waves. T waves are Normal. No ST changes noted. Clinical impression: Normal ECG and No evidence of ischemia. Interpreted by me. Reviewed by me. Administered Medications: 17:23 Drug: NS 0.9% IV 500 ml IV at bolus once; to be given as a bolus over 30 minutes Route: ss IV; Rate: bolus; Site: right antecubital; 18:02 CANCELLED (Duplicate Order): ns 0.9% 500 ml IV at bolus once; to be given as a bolus abe over 30 minutes 18:10 Drug: Ondansetron IVP 4 mg IVP once; over 2 minutes Route: IVP; Site: right antecubital;ss 20:06 Follow up: Response: No adverse reaction; Marked relief of symptoms; Nausea is decreasedjb4 18:13 Drug: morphine IVP or IV 4 mg IVP once over 4 mins Route: IVP; Infused Over: 4 mins; ss Site: right antecubital; 20:06 Follow up: Response: No adverse reaction; Marked relief of symptoms; Pain is decreased; jb4 RASS: Alert and Calm (0) 18:37 Drug: Norvasc PO 10 mg PO once Route: PO; ss 20:06 Follow up: Response: No adverse reaction; Marked relief of symptoms; Blood pressure is jb4 lowered 20:06 Drug: metoCLOPramide IVP 10 mg IVP once; over 1 to 2 minutes Route: IVP; Site: right jb4 antecubital; 20:06 Drug: Ketorolac IVP 15 mg IVP once Route: IVP; Site: right antecubital; jb4 Disposition Summary: 08/05/24 20:40 Discharge Ordered Notes: Location: Home cp Problem: new cp Symptoms: have improved cp Condition: Stable cp Diagnosis - Headache cp - Abdominal tenderness - sp EGD/COLONOSCOPE 08/05 cp - Dizziness and giddiness cp - Essential (primary) hypertension cp Followup: abe - With: Private Physician - When: 2 - 3 days - Reason: Recheck today's complaints, Continuance of care, Re-evaluation by your physician Followup: abe - With: Nitish Diego MD - When: 2 - 3 days - Reason: Recheck today's complaints, Continuance of care, Re-evaluation by your physician Followup: abe - With: Jozef Fisher MD - When: 2 - 3 days - Reason: Recheck today's complaints, Re-evaluation by your physician Discharge Instructions: - Discharge Summary Sheet abe - Abdominal Pain, Adult abe - Potassium Content of Foods abe - Dizziness abe - Hypertension, Adult abe - Abdominal Pain, Adult, [id number] abe - Hypertension, Adult, [id number] abe - How to Take Your Blood Pressure, [id number] abe - Managing Your Hypertension [facility] Forms: - Medication Reconciliation Form cp - Antibiotic Education cp - Prescription Opioid Use cp - Patient Portal Instructions cp - Leadership Thank You Letter cp Prescriptions: - ondansetron 4 mg Oral Tablet,disintegrating - take 1 tablet ORAL route every 8 hours for 5 days; 20 tablet; Refills: 0, [facility] Product Selection Permitted - Fioricet with Codeine [id number] mg Oral capsule - take 2 capsule ORAL route every 4 hours as needed for pain; do not exceed 6 abe caps per day; 15 capsule; Refills: 0, Product Selection Permitted - Carafate 1 gram Oral tablet - take 1 tablet ORAL route 4 times per day take on an empty stomach, beginning on abe waking and last dose at bedtime; 40 tablet; Refills: 0, Product Selection Permitted - Norvasc 10 mg Oral Tablet - take 1 tablet ORAL route once daily; 30 tablet; Refills: 0, Product Selection [facility] Permitted - Protonix 40 mg Oral tablet, delayed release (enteric coated) - take 1 tablet ORAL route once daily; 14 tablet; Refills: 0, Product Selection [facility] Permitted - Lisinopril-Hydrochlorothiazide 10-12.5 mg Oral Tablet - take 1 tablet ORAL route once daily; 20 tablet; Refills: 0, Product Selection [facility] Permitted NIH Stroke Scale - NIH Stroke Score Date: 08/05/2024 Time: 17:56 Total Score = 0 10. Dysarthria (speech clarity - read or repeat words) - 0(Normal) 11. Extinction and Inattention (visual/tactile/auditory/spatial/personal) - 0(No abnormality) 1a. Level of Consciousness (LOC) - 0(Alert) 1b. Level of Consciousness (LOC) (Month \T\ Age) - 0(Both) 1c. LOC Commands (Open \T\ Closes Eyes/Roll Forming Machine Operator) - 0(Both) 2. Best Gaze (Lateral Gaze Paresis) - 0(Normal) 3. Visual Field Loss - 0(No visual loss) 4. Facial Palsy - 0(Normal) 5a. Left Arm: Motor (10-second hold) - 0(No drift) 5b. Right Arm: Motor (10-second hold) - 0(No drift) 6a. Left Leg: Motor (5-second hold - always test supine) - 0(No drift) 6b. Right Leg: Motor (5-second hold - always test supine) - 0(No drift) 7. Limb Ataxia (finger/nose \T\ heel/ricketts - test with eyes open) - 0(Absent) 8. Sensory Loss (pinprick arms/legs/face) - 0(Normal) 9. Best Language: Aphasia (description/naming/reading) - 0(No aphasia) Initials: abe Signatures: Dispatcher [employer] EDMS Jimbo Rivera MD MD cha Blanchard, Shelby, RN RN ss Jimbo Galvan PA PA Peter Aquino, RN RN jb4 Corrections: (The following items were deleted from the chart) 16:37 16:37 BASIC METABOLIC PANEL+C.LAB.BRZ ordered. EDMS EDMS 16:37 16:37 CBC+H.LAB.BRZ ordered. EDMS EDMS 16:37 16:37 HEPATIC FUNCTION+C.LAB.BRZ ordered. EDMS EDMS 16:37 16:37 MAGNESIUM+C.LAB.BRZ ordered. EDMS EDMS 16:37 16:37 PROBNP+C.LAB.BRZ ordered. EDMS EDMS 16:37 16:37 PROTIME (+INR)+COAG.LAB.BRZ ordered. EDMS EDMS 16:37 16:37 Troponin High Sensitivity+C.LAB.BRZ ordered. EDMS EDMS 16:38 16:37 LIPASE+C.LAB.BRZ ordered. EDMS EDMS 16:38 16:37 Urinalysis+U.LAB.BRZ ordered. EDMS EDMS 16:38 16:38 Chest Single View+RAD.RAD.BRZ ordered. EDMS EDMS 18:02 17:45 NS 0.9% IV 500 ml IV at bolus once; to be given as a bolus over 30 abe minutes ordered. abe
--- NOTE | 2024-08-05 20:41 | ER ---
Nurse's Notes [facility] Name: Noah Putnam Age: 53 yrs Sex: Male : 1970 Arrival Date: 08/05/2024 Time: 16:25 Bed 11 Private MD: Diagnosis: Headache;Abdominal tenderness-sp EGD/COLONOSCOPE 08/05;Dizziness and giddiness;Essential (primary) hypertension Presentation: 08/05 16:55 Chief complaint: Patient states: Patient presents in the ED c/o headache ( from ss forehead to back of the head), nausea, dizziness, and hypertension for the past 2 days. Patient also reports light and noise sensitivity. Coronavirus screen: Vaccine status: Patient reports receiving the 2nd dose of the covid vaccine. Client denies travel out of the [place] in the last 14 days. At this time, the client does not indicate any symptoms associated with coronavirus-19. Ebola Screen: No symptoms or risks identified at this time. Initial Sepsis Screen: Does the patient meet any 2 criteria? No. Patient's initial sepsis screen is negative. Does the patient have a suspected source of infection? No. Patient's initial sepsis screen is negative. Risk Assessment: Do you want to hurt yourself or someone else? Patient reports no desire to harm self or others. Onset of symptoms was August 03, 2024. 16:55 Method Of Arrival: Ambulatory ss 16:55 Acuity: BREEZY 3 ss Historical: - Allergies: 16:59 Bee Venom; ss - Home Meds: 16:59 amlodipine 10 mg tab 1 tab once daily [Active]; lisinopril 10 mg Oral tab 1 tab once ss daily [Active]; - PMHx: 16:59 chronic kidney disease; Chronic Pancreatitis; Herniated disc; Hypertension; ss - PSHx: 16:59 left arm surgery; ss - Immunization history:: Adult Immunizations up to date. - Infectious Disease History:: Denies. - Social history:: Smoking status: Patient denies any tobacco usage or history of. Screenin:12 Abuse screen: Denies threats or abuse. Denies injuries from another. Nutritional ss screening: No deficits noted. Tuberculosis screening: Never had TB. 21:03 [facility] ED Fall Risk Assessment (Adult) History of falling in the last 3 months, jb4 including since admission No falls in past 3 months (0 pts) Confusion or Disorientation No (0 pts) Intoxicated or Sedated No (0 pts) Impaired Gait No (0 pts) Mobility Assist Device Used No (0 pt) Altered Elimination No (0 pt) Score/Fall Risk Level 0 - 2 = Low Risk Oriented to surroundings, Maintained a safe environment. Assessment: 19:09 General: Appears uncomfortable, Behavior is calm, cooperative. Pain: Complains of pain ss in head, neck Pain currently is 7 out of 10 on a pain scale. Quality of pain is described as aching, Pain began 2-3 days ago. Is continuous. Neuro: Level of Consciousness is awake, alert, obeys commands, Oriented to person, place, time, situation. Respiratory: Airway is patent Respiratory effort is even, unlabored, Respiratory pattern is regular, symmetrical. EENT: Oral mucosa is moist. Derm: Skin is intact, is healthy with good turgor, Skin is pink, warm \T\ dry. normal. 19:13 GI: Patient currently denies diarrhea, nausea, vomiting. Musculoskeletal: Circulation, ss motion, and sensation intact. Range of motion: intact in all extremities. 20:11 Reassessment: Patient appears in no apparent distress at this time. Patient and/or jb4 family updated on plan of care and expected duration. Pain level reassessed. Patient is alert, oriented x 3, equal unlabored respirations, skin warm/dry/pink. Vital Signs: 16:55 BP 153 / 104; Pulse 71; Resp 19; Temp 98.3; Pulse Ox 100% on R/A; Weight 120.2 kg; ss 18:05 BP 144 / 78; ss 18:16 BP 143 / 93; Pulse 69; ss 18:29 BP 151 / 96; Pulse 63; ss 20:11 BP 155 / 101; Pulse 74; Resp 16; Pulse Ox 94% on R/A; jb4 Gerry Coma Score: 17:57 Eye Response: spontaneous(4). Motor Response: obeys commands(6). Verbal Response: abe oriented(5). Total: 15. NIH Stroke Scale Scores: 17:56 NIHSS Score: 0 abe ED Course: 16:30 Patient arrived in ED. ra3 16:36 Jimbo Rivera MD is Attending Physician. abe 16:59 Triage completed. ss 17:00 XRAY Chest (1 view) In Process Unspecified. EDMS 17:13 EKG done, by ED staff, reviewed by Jimbo Rivera MD. em1 17:15 Inserted saline lock: 20 gauge in right antecubital area, using aseptic technique. ss Blood collected. Flushed with 10 mL NS. 17:17 Basic Metabolic Panel Sent. ss 17:17 CBC with Diff Sent. ss 17:17 LFT's Sent. ss 17:18 Magnesium Sent. ss 17:18 NT PRO-BNP Sent. ss 17:18 PT-INR Sent. ss 17:18 Troponin HS Sent. ss 17:18 Urinalysis w/ reflexes Sent. ss 17:18 Lipase Sent. ss 17:22 Lawanda Marti, RN is Primary Nurse. ss 18:24 CT Head Brain wo Cont In Process Unspecified. EDMS 18:24 CT Abd/Pelvis - Without Contrast In Process Unspecified. EDMS 19:12 Patient has correct armband on for positive identification. Bed in low position. ss 20:40 Nitish Diego MD is Referral Physician. cp 20:40 Jozef Fisher MD is Referral Physician. cp 21:03 No provider procedures requiring assistance completed. IV discontinued, intact, jb4 bleeding controlled, No redness/swelling at site. Pressure dressing applied. 21:03 Provided Education on: discharge instructions.. jb4 Administered Medications: 17:23 Drug: NS 0.9% IV 500 ml IV at bolus once; to be given as a bolus over 30 minutes Route: ss IV; Rate: bolus; Site: right antecubital; 18:02 CANCELLED (Duplicate Order): ns 0.9% 500 ml IV at bolus once; to be given as a bolus abe over 30 minutes 18:10 Drug: Ondansetron IVP 4 mg IVP once; over 2 minutes Route: IVP; Site: right antecubital;ss 20:06 Follow up: Response: No adverse reaction; Marked relief of symptoms; Nausea is decreasedjb4 18:13 Drug: morphine IVP or IV 4 mg IVP once over 4 mins Route: IVP; Infused Over: 4 mins; ss Site: right antecubital; 20:06 Follow up: Response: No adverse reaction; Marked relief of symptoms; Pain is decreased; jb4 RASS: Alert and Calm (0) 18:37 Drug: Norvasc PO 10 mg PO once Route: PO; ss 20:06 Follow up: Response: No adverse reaction; Marked relief of symptoms; Blood pressure is jb4 lowered 20:06 Drug: metoCLOPramide IVP 10 mg IVP once; over 1 to 2 minutes Route: IVP; Site: right jb4 antecubital; 20:06 Drug: Ketorolac IVP 15 mg IVP once Route: IVP; Site: right antecubital; jb4 Medication: 19:09 VIS not applicable for this client. ss Outcome: 20:40 Discharge ordered by MD. cp 21:03 Discharged to home ambulatory, jb4 21:03 Condition: stable 21:03 Discharge instructions given to patient, Instructed on discharge instructions, follow up and referral plans. no drinking with medication, no driving heavy equipment, medication usage, Demonstrated understanding of instructions, follow-up care, medications, Prescriptions given X 6 21:04 Patient left the ED. jb4 NIH Stroke Scale - NIH Stroke Score Date: 08/05/2024 Time: 17:56 Total Score = 0 10. Dysarthria (speech clarity - read or repeat words) - 0(Normal) 11. Extinction and Inattention (visual/tactile/auditory/spatial/personal) - 0(No abnormality) 1a. Level of Consciousness (LOC) - 0(Alert) 1b. Level of Consciousness (LOC) (Month \T\ Age) - 0(Both) 1c. LOC Commands (Open \T\ Closes Eyes/Learning Development Specialist) - 0(Both) 2. Best Gaze (Lateral Gaze Paresis) - 0(Normal) 3. Visual Field Loss - 0(No visual loss) 4. Facial Palsy - 0(Normal) 5a. Left Arm: Motor (10-second hold) - 0(No drift) 5b. Right Arm: Motor (10-second hold) - 0(No drift) 6a. Left Leg: Motor (5-second hold - always test supine) - 0(No drift) 6b. Right Leg: Motor (5-second hold - always test supine) - 0(No drift) 7. Limb Ataxia (finger/nose \T\ heel/ricketts - test with eyes open) - 0(Absent) 8. Sensory Loss (pinprick arms/legs/face) - 0(Normal) 9. Best Language: Aphasia (description/naming/reading) - 0(No aphasia) Initials: abe Signatures: Dispatcher [employer] EDJimbo Marquez MD MD cha Martinez, Eric em1 Lawanda Marti, RN RN ss Jimbo Galvan PA PA cp Bryson, James RN RN jb4 Meron Estrada ra3 Corrections: (The following items were deleted from the chart) 19:13 19:09 Pain: Complains of pain in head, neck Pain currently is 7 out of 10 on a ss pain scale. Quality of pain is described as aching, Pain began Is continuous, ss
[2024-08-05 23:54] VITALS: TEMP 98.3
[2024-08-05 23:58] VITALS: BP 155/101; O2SAT 94
--- NOTE | 2024-08-08 12:03 | EKG ---
Test Date: 2024-08-05 Test Time: 17:10:15 [employer] Tutor: LEE MEASUREMENT RESULTS: Intervals: Rate: 72 IL: 170 QRSD: 76 QT: 398 QTc: 435 Gardner: P: 60 IL: 170 QRS: 38 T: 34 INTERPRETIVE STATEMENTS: Normal sinus rhythm Normal ECG Compared to ECG 05/13/2024 23:13:54 No significant changes Electronically Signed On 08-08-24 12:01:23 TITLE PROCESSOR by Elias Lee
== END 2024-08-05 21:04 | disposition home or self-care (01) ==
LOC: ER 16:25
DX: R51.9 Headache, unspecified (principal); R10.819 Abdominal tenderness, unspecified site; R42 Dizziness and giddiness; I10 Essential (primary) hypertension; Z98.890 Other specified postprocedural states
CPT/HCPCS: 93005; 85025; 80048; 36415; 83735; 85610; 80076; 81003; 84484; 83690; 83880; 70450; 74176; 71045; 96375; 96374; 99284; J2765; J2405; J7040

== ENCOUNTER 2024-09-07 14:59 | Emergency (ER) | payer OTHER ==
--- OUTSIDE RECORDS SUMMARY | 2024-09-07 15:08 | XMS REPORT | Continuity of Care Document ---
Author Name Unknown Address [address] [facility] [address] [place] [address] [facility] thconnect Address [address] [facility] 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 Role Phone Emily Gaines Primary Care Physician Mayuri James Attending Clinician UnavailHAYDEN Park Attending Clinician Unavailable OMARI RAZA Attending Clinician Unavailable ADRI TAYLOR Attending Clinician Unavailable MD RICKI Attending Clinician Unavailab LEANDRO Dodson Attending Clinician Unava ilable LUKE CLARKE Attending Clinician Unavailable LUKE CLARKE Attending Clinician Unavailable Luke Clarke PA-C Attending Clinician [phone] [facility] Attending Clinician UnavailFOUZIA Davis Attending Clinician Unavailable GIBRAN MCADAMS Attending Clinician Unavailable BROOK ALLEN Attending Clinician Unav ailable LAB90 Attending Clinician Unavailable Trevor TAYLOR Attending Clinician Unavailable Trevor TAYLOR Attending Clinician Unavailable GERALD VIDAL Attending Clinician Unavailable LAB47 Attending Clinician Unavailable Karl Ferguson MD Attending Clinician [phone] OUTSIDE, REPORTED Attending Clinician UnavailElida Patrick MD Attending Clinician [phone] LETI RIVAS Attending Clinician Unavailable LETI RIVAS Attending Clinician Unavailable ABRAHAM ORANTES Attending Clinician Unavailable Abraham Orantes MD Attending Clinician [phone] Chavez Turner DO Attending Clinician [phone] CALLIE MUNOZ Attending Clinician Unavailable CALLIE MUNOZ Attending Clinician Unavailable MERLYN HIDALGO Attending Clinician Unavailable Doctor Unassigned, [place] Attending Clinician U navailable ADAN CHESTER Attending Clinician Unav ailable KIARA RICHRADSON Attending Clinician Unava ilable JOHNATHAN AVILA Attending Clinician Unavail able Johnathan Avila MD Attending Clinician Kristian Paul Attending Clinician Unavaila NANCY Mayfield Attending Clinician Unavailabl STEPHIE Cortes Attending Clinician Unavailab MIRIAM Cervantes Attending Clinician Unavailable MIRIAM LUDWIG Attending Clinician Unavailable Haresh Santamaria MD Attending Clinician + Kristian Gleason Attending Clinician Unavailab atilio Vallejo, Dieudonne Attending Clinician Unavailab le LAB56 Attending Clinician Unavailable MANFRED LANE Attending Clinician Unavaila AYDIN Miller Attending Clinician Unavailable Aydin Matos MD Attending Clinician + NATALI ALEXANDER Attending Clinician Unavailab Natali Glass DO Attending Clinician + ADELAIDE GOODWIN Attending Clinician Unavailable Adelaide Goodwin MD Attending Clinician [phone] HEMALATHA MORA Attending Clinician Unavailable Vinclul SETTER COLD ROLLING MACHINE, Shinalan Attending Clinician + [phone] JESSICA GONZALES Attending Clinician Unavailable Jessica Pradhan S Attending Clinician [phone] SOHAM CLARKE Attending Clinician Unavaillupillo Clarke MD, Soham Sethi Attending Clinician +[phone] Azammicah FRENCHP, Lion Attending Clinician + MARK HERNANDEZ Attending Clinician Unavailable Mark Hernandez MD Attending Clinician [phone] Ellen Carroll RN Attending Clinician + [phone] EMELIA GALLEGO Attending Clinician Unavailable Coco WALDROP, Madison Tripathi Attending Clinician [phone] Emelia Gallego DO Attending Clinician [phone] Felipe Valdivia Attending Clinician + FELIPE ORTEGA Attending Clinician Unavailable Gabriella Zarate NP Attending Clinician + [phone] Nurse, Adc Pob Immunization Attending Clinician Unavailable David Clarke DO Attending Clinician [phone] Nikhil Trevizo Attending Clinician +[phone] NIKHIL BLANTON Attending Clinician Unavailable Isabela BARRIGA, Mirna Topete Attending Clinician Unavailab atilio Pcp, Patient Does Not Have A Attending Clinician Darnell Bustillo Attending Clinician +[phone] Jessy Siddiqui DO Attending Clinician [phone] LUKE CLARKE Admitting Clinician Unavailable Trevor TAYLOR [...] Clinician Unavailable Mark Hernandez MD Admitting Clinician Trevor TAYLOR Admitting Clinician Unavailable EMELIA GALLEGO Admitting Clinician Unavailable Emelia Gallego DO Admitting Clinician [phone] DARNELL HSU Admitting Clinician Unavailable Payers Payer Name Policy Type Policy Number Effective Date Expirati on Date Source AET[employer] 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 ON 9 [id number] 2023 00:00:00 [employer] W/ LUZ MARIA NG OOO [id number] 2023 00:00:00 [facility] INS PROGRAM 2 [id number] 2023 00:00:00 [employer] GENERIC [id number] 2021 00:00:00 [place] [address] [id number] Common [facility] Problems Condition Name Condition Details Condition Category Status Onset Date Resolution Date Last Treatment Date Treating Clinician Comments Source Bilateral renal cysts Bilateral renal cysts Disease Active 2023-09 00:00: 00 Luz Maria rea Liver hemangioma Liver hemangioma Disease Active 2023-09 00:00: 00 Luz Maria rea Well adult exam Well adult exam Disease [...] Luz Maria Riveraold - Externa l Chronic hepatitis C (multi HCC) Chronic hepatitis C (multi HCC) Disease Active 10-06 00:00: 00 Luz Maria Riveraold - Externa l Hypertensi on Hypertensi on [...] Epigastric pain Disease Active 10-11 00:00: 00 [facility] SBO (small bowel obstructio n) SBO (small bowel obstructio n) Disease Active 10-30 00:00: 00 [facility] Obesity (BMI 30-39.9) Obesity (BMI 30-39.9) Disease Active 10-30 00:00: 00 [facility] No known active problems No known active problems Disease [facility] [id number] Bladder mass Problem [facility] [id number] Microscopi c hematuria Problem [facility] [id number] Suprapubic pain Problem [facility] [id number] Lower urinary tract symptoms Problem [facility] Allergies, Adverse Reactions, Alerts Allergy Name Allergy Type Status Severity Reaction(s) Onset Date Inactive Date Treating Clinician Comments Source bee venom protein (honey bee) DA Active SV THROAT SWELL 2022-09:00: 00 [facility] Bee Venom Propensi ty to adverse reaction s Active Swelling 10-30 00:00: 00 Luz Maria Ng - Externa l BEE VENOM PROTEIN (HONEY BEE) DRUG INGREDI Active Swelling 10-30 00:00: 00 [facility] No Known Allergie s DA Active U 8-06 00:00: 00 [facility] NO KNOWN ALLERGIE S Drug Class Active [facility] Social History Social Habit Start Date Stop [...] (event) 2022-11-28 00:00:00 2022-12-08 23:50:00 Not sure [facility] Tobacco use and exposure 2022-10-11 00:00:00 2022-10-11 00:00:00 Smokeless tobacco non-user [facility] Sex 2022-09-11 16:00:01 2022-09-11 16:00:01 Male (finding) Luz Maria Montenegro Sex assigned at 1970 00:00:00 1970 00:00:00 Luz Maria Montenegro Smoking Status Start Date Stop Date Source Ex-smoker 2024-03-30 00:00:00 2024-03-30 00:00:00 Luz Maria Montenegro Occasional tobacco smoker 2023-05-20 00:00:00 Luz Maria Montenegro Never smoked tobacco [facility] Unknown if ever smoked [facility] Medications Ordered Medication Name Filled Medication Name Start Date Stop Date Current Medication? Ordering Clinician Indication Dosage Frequency Signature (SIG) Comments Components Source ketorolac (TORADOL) injection 15 mg 06-08 01:00: 00 06-08 00:42 :00 No 15mg 15 mg, Slow IV Push, ONCE, 1 dose, On Thu06/07/24 at 2000, [facility] HYDROcodone -acetaminop hen (NORCO 5) tablet 1 tablet 06-08 00:15: 00 06-08 00:41 :00 No 1{tbl} 1 tablet, Oral, ONCE, 1 dose, On Thu06/07/24 at 1915, [facility] aspirin chewable tablet 324 mg 06-07 23:30: 00 06-07 22:42 :00 No 324mg 324 mg, Oral, ONCE, 1 dose, On Thu06/07/24 at 1830, [facility] NaCl 0.9% (NS) bolus infusion 1,000 mL 06-07 22:45: 00 06-08 00:45 :00 No 1000mL at 999 mL/hr, 1,000 mL, IV Infusion, ONCE, 1 dose, On Thu06/07/24 at 1745, [facility] nitroglycer in (NITROSTAT) sublingual tablet 0.4 mg 06-07 21:58: 38 Yes .4mg 0.4 mg, Sublingual , Q5MIN PRN, 3 doses, Starting on Thu06/07/24 at 1658, Until Discontinu ed, VASILIY, Chest pain [facility] diclofenac 50 mg tablet 06-07 00:00: 00 06-18 04:59 :00 No [id number] 50mg Take 1 tablet by mouth in the morning and 1 tablet at noon and 1 tablet in the evening. Do all this for 10 days. [facility] acetaminoph en-codeine 300-30 mg tablet 06-07 00:00: 00 06-13 04:59 :00 No [id number] 1{tbl} Take 1 tablet by mouth every 6 (six) hours as needed for Pain (scale 7-10) for up to 5 days. Indication s: acute pain [facility] Lisinopril 10 MG oral Tablet 05-09 00:00: 00 Yes [id number] 10mg QD Take 1 tablet (10 mg total) by mouth daily. Luz Maria rea Alprazolam (Xanax) 0.25 MG oral Tablet 04-11 00:00: 00 07-20 00:00 :00 No [id number] 107 Take 1 table 45 mins before MRI and 1 tablet just before MRI. Luz Maria rea diphenhydrA MINE:lidoca ine 2% viscous:maa lox 1:1:1 (FIRST-MOUT [facility]) oral suspension 15 mL 04-02 16:30: 00 04-02 15:34 :00 No 15mL 15 mL, Oral (Swish & Swallow), ONCE, 1 dose, On 04/02/24 at 1130, Routine [facility] famotidine (PEPCID (PF)) injection 20 mg 04-02 15:30: 00 04-02 15:34 :00 No 20mg 20 mg, Slow IV Push, ONCE, 1 dose, On 04/02/24 at 1030, VASILIY [facility] NaCl 0.9% (NS) bolus infusion 2,000 mL 04-02 15:15: 00 04-02 17:55 :00 No 2000mL at 999 mL/hr, 2,000 mL, IV Infusion, ONCE, 1 dose, On 04/02/24 at 1015, [facility] ondansetron (ZOFRAN (PF)) injection 4 mg 04-02 15:15: 00 04-02 14:27 :00 No 4mg 4 mg, Slow IV Push, ONCE, 1 dose, On 04/02/24 at 1015, [facility] iopamidol (ISOVUE 370-500 mL) injection 90 mL 04-02 14:45: 00 04-02 15:00 :00 No [id number] 90mL 90 mL, Intravenou s, ONCE, 1 dose, On 04/02/24 at 1000, Routine [facility] morpHINE (4 mg/mL) injection 4 mg 04-02 14:15: 00 04-02 14:27 :00 No 4mg 4 mg, Slow IV Push, ONCE, 1 dose, On 04/02/24 at 0915, [facility] Sucralfate 1 g oral Tablet 04-02 00:00: 00 Yes 1g Take 1 tablet (1 g total) by mouth before meals and at bedtime. Luz Maria rea Sod Picosulfate -Mag Ox-Cit Acd (Clenpiq) 10-3.5-12 MG-GM -GM/175ML oral Solution 03-30 00:00: 00 Yes [id number] Instructio ns provided to patient. Follow instructio ns provided by provider.. Luz Maria rea Omeprazole 40 MG oral Delayed Release Capsule 03-30 00:00: 00 Yes [id number] 40mg QD Take 1 capsule (40 mg total) by mouth daily. Luz Maria rea NaCl 0.9% (NS) bolus infusion 1,000 mL 02-20 03:45: 00 02-20 04:50 :00 No 1000mL at 999 mL/hr, 1,000 mL, IV Infusion, ONCE, 1 dose, On 02/20/24 at 2245, [facility] FENTanyl PF (SUBLIMAZE (PF)) injection 50 mcg 02-20 03:00: 00 02-20 03:07 :00 No 50ug 50 mcg, Slow IV Push, ONCE, 1 dose, On 02/20/24 at 2200, Routine [facility] metoclopram jerilyn HCl (REGLAN) injection 10 mg 02-20 03:00: 00 02-20 03:07 :00 No 10mg 10 mg, Slow IV Push, ONCE, 1 dose, On 02/20/24 at 2200, [facility] bisacodyL (DULCOLAX[facility] tablet 5 mg 02-20 03:00: 00 02-20 03:07 :00 No 5mg 5 mg, Oral, ONCE NOW, 1 dose, On 02/20/24 at 2200, Routine [facility] dicyclomine 20 mg tablet 02-19 00:00: 00 Yes [id number] 20mg Take 1 tablet by mouth 4 (four) times daily as needed for Abdominal pain. [facility] Bisacodyl (DULCOLAX) 5 MG oral [...] MG oral Tablet 12-16 00:00: 00 Yes [id number] 10mg QD Take 1 tablet (10 mg total) by mouth nightly as needed for muscle spasms. Luz Maria rea HYDROcodone -acetaminop hen (NORCO) 10-325 mg tablet 1 tablet 12-09 04:45: 00 12-09 03:57 :00 No 1{tbl} 1 tablet, Oral, ONCE NOW, 1 dose, On Thu12/09/23 at 2345, Routine [facility] iopamidol (ISOVUE 370-500 mL) injection 100 mL 12-09 03:30: 00 12-09 03:30 :00 No [id number] 100mL 100 mL, Intravenou s, ONCE, 1 dose, On Thu12/09/23 at 2230, Routine [facility] ketorolac (TORADOL) injection 30 mg 12-09 03:00: 00 12-09 02:04 :00 No 30mg 30 mg, Slow IV Push, ONCE, 1 dose, On Thu12/09/23 at 2200, Routine [facility] Methocarbam ol 750 MG oral Tablet 12-09 00:00: 00 12-16 00:00 :00 No 750mg Q.25D Take 1 tablet (750 mg total) by mouth every 6 hours as needed FOR PAIN. Luz Maria rea ketorolac 10 mg tablet 12-08 00:00: 00 Yes [id number] 10mg Take 1 tablet by mouth every 6 (six) hours as needed for Pain (scale 7-10). [facility] methocarbam oL 750 mg tablet 12-08 00:00: 00 Yes [id number] 750mg Take 1 tablet by mouth every 6 (six) hours as needed for Pain (scale 7-10) (MUSCLE SPASM). [facility] Ketorolac Tromethamin e (TORADOL IM) 12-05 00:00: 00 12-16 00:00 :00 No Luz Maria rea Lisinopril 10 MG oral Tablet 10-06 14:45: 28 10-06 00:00 :00 No 10mg Take 1 tablet (10 mg total) by mouth daily. Luz Maria rea Gabapentin 300 MG oral Capsule 10-06 00:00: 00 Yes [id number] 300mg Q.5D Take 1 capsule (300 mg total) by mouth 2 times daily as needed. Luz Maria rea Lisinopril 10 MG oral Tablet 10-06 00:00: 00 Yes [id number] 10mg QD Take 1 tablet (10 mg total) by mouth daily. Luz Maria rea Pancrelipas e, Lip-Prot-Am yl, (Creon) [id number] units oral Cap DR Particles 10-06 00:00: 00 Yes [id number] 1{capsu le} Take 1 capsule by mouth 3 times daily (with meals). Luz Maria rea Amlodipine Besylate 10 MG oral Tablet 10-06 00:00: 00 Yes [id number] 10mg QD Take 1 tablet (10 mg total) by mouth daily. Luz Maria rea Famotidine (PEPCID) 20 MG oral tablet 10-06 00:00: 00 Yes [id number] 20mg Q.5D Take 1 tablet (20 mg total) by mouth 2 times daily. Luz Maria rea Pantoprazol e Sodium 20 MG oral Tablet Delayed Response 10-06 00:00: 00 03-30 00:00 :00 No [id number] 20mg Take 1 tablet (20 mg total) by mouth every morning. Luz Maria rea HYDROcodone -acetaminop hen (NORCO) 10-325 mg tablet 1 tablet 2022-09 06:45: 00 08-04 05:38 :00 No 1{tbl} 1 tablet, Oral, ONCE NOW, 1 dose, On Thu08/04/23 at 0045, [facility] (ROBAXIN) tablet 1,000 mg 2022-09 05:45: 00 08-04 05:38 :00 No 1000mg 1,000 mg, Oral, ONCE, 1 dose, On Thu08/03/23 at 2345, VASILIY [facility] FENTanyl PF (SUBLIMAZE (PF)) injection 75 mcg 2022-09 05:00: 00 08-04 04:14 :00 No 75ug 75 mcg, Slow IV Push, ONCE, 1 dose, On Thu08/03/23 at 2300, Routine [facility] NaCl 0.9% (NS) IV infusion 1,000 mL 2022-09 04:45: 00 08-04 05:39 :00 No 1000mL at 999 mL/hr, Intravenou s, ONCE, 1 dose, On 08/03/23 at 2245, Routine [facility] methocarbam oL 500 mg tablet 2022-09 00:00: 00 Yes [id number] 500mg Take 1 tablet by mouth every 6 (six) hours as needed (MUSCLE SPASM). [facility] HYDROcodone -acetaminop hen (NORCO) 10-325 mg tablet 2022-09 00:00: 00 08-11 05:59 :00 No [id number] 1{tbl} Take 1 tablet by mouth every 6 (six) hours as needed for Pain (scale 7-10) for up to 7 days. Indication s: acute pain [facility] diphenhydrA MINE (BENADRYL) injection 25 mg 2022-09 19:30: 00 07-25 18:34 :00 No 25mg 25 mg, Slow IV Push, ONCE, 1 dose, On 07/25/23 at 1330, STAT [facility] metoclopram jerilyn HCl (REGLAN) injection 10 mg 2022-09 19:30: 00 07-25 18:34 :00 No 10mg 10 mg, Slow IV Push, ONCE, 1 dose, On 07/25/23 at 1330, VASILIY [facility] morpHINE (4 mg/mL) injection 4 mg 2022-09 17:30: 00 07-25 16:43 :00 No 4mg 4 mg, Slow IV Push, ONCE, 1 dose, On 07/25/23 at 1130, STAT [facility] ondansetron (ZOFRAN (PF)) injection 4 mg 2022-09 17:15: 00 07-25 16:43 :00 No 4mg 4 mg, Slow IV Push, ONCE, 1 dose, On 07/25/23 at 1115, VASILIY [facility] NaCl 0.9% (NS) bolus infusion 1,000 mL 2022-09 17:15: 00 07-25 18:54 :00 No 1000mL at 999 mL/hr, 1,000 mL, IV Infusion, ONCE, 1 dose, On 07/25/23 at 1115, STAT [facility] metoclopram jerilyn HCl 10 mg tablet 2022-09 00:00: 00 Yes [id number] 10mg Take 1 tablet by mouth every 6 (six) hours. [facility] sodium chloride (NS) injection 5 mL 2022-09 19:45: 30 Yes 5mL 5 mL, Intravenou s, PRN, Starting on Thu07/24/23 at 1345, Until Discontinu ed, Routine, IV line flushing [facility] dicyclomine 20 mg tablet 2022-09 00:00: 00 02-19 00:00 :00 No [id number] 20mg Take 1 tablet by mouth 4 (four) times daily as needed for Abdominal pain. [facility] ketorolac (TORADOL) injection 15 mg 2022-09 03:15: 00 07-12 02:32 :00 No 15mg 15 mg, Slow IV Push, ONCE, 1 dose, On 07/11/23 at 2215, Routine [facility] methocarbam oL (ROBAXIN) tablet 1,000 mg 2022-09 02:30: 00 07-12 02:32 :00 No 1000mg 1,000 mg, Oral, ONCE, 1 dose, On 07/11/23 at 2130, VASILIY [facility] famotidine (PEPCID (PF)) injection 20 mg 2022-09 02:30: 00 07-12 02:32 :00 No 20mg 20 mg, Slow IV Push, ONCE, 1 dose, On 07/11/23 at 2130, VASILIY [facility] aspirin chewable tablet 324 mg 2022-09 02:15: 00 07-12 02:31 :00 No 324mg 324 mg, Oral, ONCE, 1 dose, On 07/11/23 at 2115, STAT [facility] HYDROcodone -acetaminop hen 5-325 mg tablet 2022-09 00:00: 00 07-15 04:59 :00 No [id number] 1{tbl} Take 1 tablet by mouth every 4 (four) hours as needed for Pain (scale 7-10) for up to 3 days. Indication s: acute pain [facility] omeprazole 40 mg capsule 2022-09 00:00: 00 Yes [id number] 40mg Take 1 capsule by mouth in the morning and 1 capsule in the evening. [facility] peg-electro lyte soln 236-22.74-6 .74 -5.86 gram solution 2022-09 00:00: 00 Yes [id number] Take as directed before colonoscop y [facility] Lisinopril 10 MG oral Tablet 2022-09 08:45: [...] ONCE, 1 dose, On Thu07/03/23 at 0845, [facility] famotidine (PEPCID (PF)) injection 20 mg 2022-09 13:00: 00 07-03 12:49 :00 No 20mg 20 mg, Slow IV Push, ONCE, 1 dose, On Thu07/03/23 at 0800, [facility] iohexol (OMNIPAQUE 350 BULK-100 mL) injection 80 mL 2022-09 10:40: 00 07-03 10:40 :00 No [id number] 80mL 80 mL, Intravenou s, ONCE, 1 dose, On Thu07/03/23 at 0545, Routine [facility] ondansetron (ZOFRAN (PF)) injection 4 mg 2022-09 10:15: 00 07-03 10:20 :00 No 4mg 4 mg, Slow IV Push, ONCE, 1 dose, On Thu07/03/23 at 0515, VASILIY [facility] morpHINE (4 mg/mL) injection 4 mg 2022-09 10:15: 07-03 10:20 :00 No 4mg 4 mg, Slow IV Push, ONCE, 1 dose, On Thu07/03/23 at 0515, STAT [facility] Pantoprazol e Sodium 20 MG [...] 2022-09 00:00: 00 07-10 00:00 :00 No [id number] 20mg Take 1 tablet by mouth in the morning and 1 tablet in the evening. [facility] Lisinopril 10 MG oral Tablet [...] 05-08 03:15: 00 05-08 02:12 :00 No [id number] 80mL 80 mL, Intravenou s, ONCE, 1 dose, On Carrie 05/07/23 at 2215, Routine [facility] morpHINE (4 mg/mL) injection 4 mg 05-08 01:00: 00 05-08 01:38 :00 No 4mg 4 mg, Slow IV Push, ONCE, 1 dose, On Carrie 05/07/23 at 2000, [facility] NaCl 0.9% (NS) bolus infusion 1,000 mL 05-08 01:00: 00 05-08 04:22 :00 No 1000mL at 999 mL/hr, 1,000 mL, IV Infusion, ONCE, 1 dose, On Carrie 05/07/23 at 2000, [facility] NaCl 0.9% (NS) bolus infusion 1,000 mL 05-02 05:15: 00 05-02 05:29 :00 No 1000mL at 999 mL/hr, 1,000 mL, IV Infusion, ONCE, 1 dose, On 05/02/23 at 0015, [facility] famotidine (PEPCID (PF)) injection 20 mg 05-02 04:15: 00 05-02 04:21 :00 No 20mg 20 mg, Slow IV Push, ONCE, 1 dose, On Thu05/01/23 at 2315, [facility] maalox:diph enhydrAMINE :lidocaine 2 % viscous 1:1:1 (FIRST[facility]MOUT [facility]) oral suspension 15 mL 05-02 04:15: 00 05-02 04:21 :00 No 15mL 15 mL, Oral, ONCE, 1 dose, On Thu05/01/23 at 2315, [facility] ondansetron (ZOFRAN (PF)) injection 4 mg 05-02 04:15: 00 05-02 03:18 :00 No 4mg 4 mg, Slow IV Push, ONCE, 1 dose, On Thu05/01/23 at 2315, [facility] NaCl 0.9% (NS) bolus infusion 1,000 mL 05-02 04:15: 00 05-02 04:15 :00 No 1000mL at 999 mL/hr, 1,000 mL, IV Infusion, ONCE, 1 dose, On Thu05/01/23 at 2315, STAT [facility] metoclopram jerilyn HCl 10 mg tablet 05-01 00:00: 00 Yes [id number] 10mg Take 1 tablet by mouth every 6 (six) hours. [facility] pantoprazol e (PROTONIX) 20 mg EC tablet 05-01 00:00: 00 07-03 00:00 :00 No [id number] 20mg Take 1 tablet by mouth in the morning. [facility] iopamidol (ISOVUE 370-500 mL) injection 70 mL 04-22 16:21: 00 04-22 16:21 :00 No [id number] 70mL 70 mL, Intravenou s, ONCE, 1 dose, On Thu04/22/23 at 1145, Routine [facility] haloperidol lactate (HALDOL) injection 2.5 mg 04-22 16:00: 00 04-22 16:01 :00 No 2.5mg 2.5 mg, Intravenou s, ONCE, 1 dose, On Thu04/22/23 at 1100, STAT [facility] NaCl 0.9% (NS) bolus infusion 500 mL 04-22 14:45: 00 04-22 15:30 :00 No 500mL at 999 mL/hr, 500 mL, IV Infusion, ONCE, 1 dose, On Thu04/22/23 at 0945, STAT [facility] maalox:diph enhydrAMINE :lidocaine 2 % viscous 1:1:1 (FIRST-MOUT [facility]) oral suspension 15 mL 04-22 13:00: 00 04-22 12:55 :00 No 15mL 15 mL, Oral, ONCE, 1 dose, On Thu04/22/23 at 0800, Routine [facility] NaCl 0.9% (NS) IV infusion 1,000 mL 04-22 12:45: 00 Yes 1000mL at 999 mL/hr, Intravenou s, CONTINUOUS , Starting on Thu04/22/23 at 0745, Until Discontinu ed, Routine [facility] NaCl 0.9% (NS) bolus infusion 1,000 mL 04-22 10:30: 00 04-22 11:30 :00 No 1000mL at 999 mL/hr, 1,000 mL, IV Infusion, ONCE, 1 dose, On Thu04/22/23 at 0530, STAT [facility] ketorolac (TORADOL) injection 30 mg 04-22 10:30: 00 04-22 09:21 :00 No 30mg 30 mg, Slow IV Push, ONCE, 1 dose, On Thu04/22/23 at 0530, Routine [facility] diphenhydrA MINE (BENADRYL) injection 25 mg 04-22 09:30: 00 04-22 09:21 :00 No 25mg 25 mg, Slow IV Push, ONCE, 1 dose, On Thu04/22/23 at 0430, STAT [facility] metoclopram jerilyn HCl (REGLAN) injection 10 mg 04-22 09:30: 00 04-22 09:21 :00 No 10mg 10 mg, Slow IV Push, ONCE, 1 dose, On Thu04/22/23 at 0430, VASILIY [facility] NaCl 0.9% (NS) bolus infusion 1,000 mL 04-22 09:15: 00 04-22 10:28 :00 No 1000mL at 999 mL/hr, 1,000 mL, IV Infusion, ONCE, 1 dose, On Thu04/22/23 at 0415, STAT [facility] Tramadol HCl (ULTRAM) 50 MG oral Tablet [...] dose, On Carrie 04/16/23 at 0915, Routine [facility] famotidine (PEPCID (PF)) injection 20 mg 04-16 13:30: 00 04-16 12:33 :00 No 20mg 20 mg, Slow IV Push, ONCE NOW, 1 dose, On Carrie 04/16/23 at 0830, VASILIY [facility] dicyclomine (BENTYL) injection 20 mg 04-16 13:30: 00 04-16 12:34 :00 No 20mg 20 mg, Intramuscu lar, ONCE NOW, 1 dose, On Carrie 04/16/23 at 0830, Routine [facility] enalaprilat (VASOTEC I.V.) injection 1.25 mg 04-16 13:15: 00 04-16 13:17 :00 No 1.25mg 1.25 mg, Slow IV Push, ONCE, 1 dose, On Carrie 04/16/23 at 0815, STAT [facility] lactulose (CEPHULAC) solution 45 mL 04-16 13:15: 00 04-16 13:18 :00 No 45mL 45 mL, Oral, ONCE, 1 dose, On Carrie 04/16/23 at 0815, VASILIY [facility] ketorolac (TORADOL) injection 30 mg 04-16 13:15: 00 04-16 12:32 :00 No 30mg 30 mg, Slow IV Push, ONCE NOW, 1 dose, On Thu04/16/23 at 0815, VASILIY [facility] NaCl 0.9% (NS) bolus infusion 1,000 mL 04-16 13:15: 00 04-16 13:54 :00 No 1000mL at 999 mL/hr, 1,000 mL, IV Piggyback, ONCE, 1 dose, On Thu04/16/23 at 0815, STAT [facility] lipase-prot ease-amylas e (CREON) 3,000-9,500 - 15,000 unit capsule 04-16 00:00: 00 Yes [id number] 3000U Take 1 capsule by mouth in the morning and 1 capsule at noon and 1 capsule in the evening. Take with meals. [facility] hyoscyamine sulfate (LEVSIN/SL) 0.125 mg sublingual tablet 04-16 00:00: [id number] 2 tablets under the tongue every 6 (six) hours as needed (Abdominal pain or cramping). [facility] bisacodyL 5 mg EC tablet 04-16 00:00: 00 Yes [id number] 5mg Take 1 tablet by mouth once daily as needed for Constipati on. [facility] Famotidine (PEPCID) 20 MG oral tablet 04-16 00:00: 00 10-06 00:00 :00 No 20mg Take 1 tablet (20 mg total) by mouth 2 times daily. [facility] Lorazepam 1 MG oral Tablet 04-05 00:00: 00 10-06 00:00 :00 No 1mg [id number] 3D Take 1 tablet (1 mg total) by mouth every 8 hours as needed. [facility] iopamidol (ISOVUE 370-500 mL) injection 100 mL 04-01 07:45: 00 04-01 06:58 :00 No [id number] 100mL 100 mL, Intravenou s, ONCE, 1 dose, On Thu04/01/23 at 0245, Routine [facility] famotidine (PEPCID (PF)) injection 20 mg 04-01 05:45: 00 04-01 06:09 :00 No 20mg 20 mg, Slow IV Push, ONCE, 1 dose, [facility]04/01/23 at 0045[facility] (SUBLIMAZE (PF)) injection 50 mcg 04-01 05:38: 00 04-01 06:10 :00 No 50ug 50 mcg, Slow IV Push, ONCE, 1 dose, On Thu04/01/23 at 0045, [facility] NaCl 0.9% (NS) IV infusion 1,000 mL 04-01 05:05: 00 04-01 06:30 :00 No 1000mL at 999 mL/hr, Intravenou s, ONCE, 1 dose, On Thu04/01/23 at 0015, [facility] ondansetron (ZOFRAN (PF)) injection 4 mg 04-01 05:05: 00 04-01 05:08 :00 No 4mg 4 mg, Slow IV Push, ONCE, 1 dose, On Thu04/01/23 at 0015, [facility] sodium chloride (NS) injection 5 mL 04-01 05:04: 36 Yes 5mL 5 mL, Intravenou s, PRN, Starting on Thu04/01/23 at 0004, Until Discontinu ed, Routine, IV line flushing [facility] ondansetron 4 mg disintegrat ing tablet 04-01 00:00: 00 Yes [id number] 4mg Take 1 tablet by mouth every 8 (eight) hours as needed for Nausea and Vomiting (N/V). [facility] traMADoL 50 mg tablet 04-01 00:00: 00 04-09 04:59 :00 No [id number] 50mg Take 1 tablet by mouth every 8 (eight) hours as needed for Pain (scale 4-6) for up to 7 days. Indication s: acute pain [facility] predniSONE (DELTASONE) tablet 40 mg 12-09 07:15: 00 12-09 06:33 :00 No 40mg 40 mg, Oral, ONCE, 1 dose, On Thu12/09/22 at 0215, [facility] traMADoL (ULTRAM) tablet 50 mg 12-09 07:15: 00 12-09 06:33 :00 No 50mg 50 mg, Oral, ONCE, 1 dose, On Thu12/09/22 at 0215, [facility] iopamidol (ISOVUE 370-500 mL) injection 100 mL 12-09 06:15: 00 12-09 06:15 :00 No [id number] 100mL 100 mL, Intravenou s, ONCE, 1 dose, On Thu12/09/22 at 0115, Routine [facility] ketorolac (TORADOL) injection 30 mg 12-09 06:15: 12-09 05:30 :00 No 30mg 30 mg, Slow IV Push, ONCE, 1 dose, On Thu12/09/22 at 0115, [facility] morpHINE (4 mg/mL) injection 4 mg 12-09 06:15: 00 12-09 05:30 :00 No 4mg 4 mg, Slow IV Push, ONCE, 1 dose, On Thu12/09/22 at 0115, [facility] NaCl 0.9% (NS) bolus infusion 1,000 mL 12-09 06:15: 00 12-09 06:33 :00 No 1000mL at 999 mL/hr, 1,000 mL, IV Infusion, ONCE, 1 dose, On Thu12/09/22 at 0115, [facility] ondansetron (ZOFRAN (PF)) injection 8 mg 12-09 05:30: 00 12-09 05:30 :00 No 8mg 8 mg, Slow IV Push, ONCE, 1 dose, On Thu12/09/22 at 0030, [facility] traMADoL 50 mg tablet 12-09 00:00: 00 Yes [id number] 50mg Take 1 tablet by mouth every 6 (six) hours as needed (pain). Indication s: acute pain [facility] ondansetron 4 mg tablet 12-09 00:00: 00 Yes [id number] 1-2 tablets every 8 hours as needed for nausea [facility] predniSONE 20 mg tablet 12-09 00:00: 00 12-17 04:59 :00 No [id number] 40mg Take 2 tablets by mouth in the morning for 7 days. [facility] iopamidol (ISOVUE 370-500 mL) injection 100 mL 11-25 06:15: 00 11-25 06:15 :00 No [id number] 100mL 100 mL, Intravenou s, ONCE, 1 dose, On Thu11/25/22 at 0115, Routine [facility] NaCl 0.9% (NS) bolus infusion 1,000 mL 11-25 06:00: 00 11-25 07:00 :00 No 1000mL at 999 mL/hr, 1,000 mL, IV Infusion, ONCE, 1 dose, On Thu11/25/22 at 0100, STAT [facility] FENTanyl PF (SUBLIMAZE (PF)) injection 50 mcg 11-25 05:45: 00 11-25 05:03 :00 No 50ug 50 mcg, Slow IV Push, ONCE, 1 dose, On Thu11/25/22 at 0045, Routine [facility] ondansetron (ZOFRAN (PF)) injection 4 mg 11-25 05:00: 00 11-25 05:04 :00 No 4mg 4 mg, Slow IV Push, ONCE, 1 dose, On Thu11/25/22 at 0000, [facility] Pancrelipas e, Lip-Prot-Am yl, (Creon) [address]-29561 units oral Cap DR Particles 1-30 00:00: 00 10-06 00:00 :00 No [facility] lipase-prot ease-amylas e (CREON) 12,000-38,0 00 -60,000 unit capsule 2 capsule 10-12 23:00: 00 Yes 2{capsu le} 2 capsule, Oral, TID MEALS, First dose on 10/12/22 at 1700, Until Discontinu ed, Routine [facility] lisinopriL 10 mg tablet 10-12 17:56: 15 Yes 10mg Take 10 mg by mouth in the morning. [facility] meloxicam (MOBIC) tablet 7.5 mg 10-12 17:15: 00 Yes 7.5mg 7.5 mg, Oral, DAILY, First dose on 10/12/22 at 1115, Until Discontinu ed, Routine [facility] omeprazole (PRILOSEC) capsule 20 mg 10-12 15:00: 00 Yes 20mg 20 mg, Oral, DAILY, First dose on 10/12/22 at 0900, Until Discontinu ed, Routine [facility] Pantoprazol e Sodium 40 MG oral Tablet Delayed Response 10-12 00:00: 00 10-06 00:00 :00 No [facility] lipase-prot ease-amylas e 12,000-38,0 00 -60,000 unit capsule 10-12 00:00: 00 01-11 04:59 :00 No [id number] 2{capsu le} Take 2 capsules by mouth in the morning and 2 capsules at noon and 2 capsules in the evening. Take with meals. Do all this for 90 days. Do not crush or chew. [facility] meloxicam 7.5 mg tablet 10-12 00:00: 00 10-27 05:59 :00 No [id number] 7.5mg Take 1 tablet by mouth once daily as needed for Pain (scale 7-10) for up to 14 days. [facility] HYDROcodone -acetaminop hen 5-325 mg tablet 10-12 00:00: 00 10-20 05:59 :00 No [id number] 1{tbl} Take 1 tablet by mouth every 6 (six) hours as needed for Pain (scale 4-6) for up to 7 days. Indication s: acute pain [facility] amLODIPine (NORVASC) tablet 10 mg 10-11 20:00: 00 Yes 10mg 10 mg, Oral, DAILY, First dose on 10/11/22 at 1400, Until Discontinu ed, Routine [facility] lactated ringers IV infusion 1,000 mL 10-11 20:00: 00 10-12 14:03 :28 No 1000mL at 125 mL/hr, 1,000 mL, IV Infusion, CONTINUOUS , Starting on 10/11/22 at 1400, Until 10/12/22 at 0803, Routine [facility] HYDROcodone -acetaminop hen (NORCO 5) 5-325 mg tablet 1 tablet 10-11 19:35: 19 10-13 19:34 :19 No 1{tbl} 1 tablet, Oral, Q6HPRN, Starting on 10/11/22 at 1335, Until 10/13/22 at 1334, Routine, Pain (scale 4-6) [facility] acetaminoph en (TYLENOL) tablet 650 mg 10-11 19:35: 16 Yes 650mg 650 mg, Oral, Q6HPRN, Starting on 10/11/22 at 1335, Until Discontinu ed, Routine, Pain (scale 1-3) [facility] NaCl 0.9% (NS) bolus infusion 1,000 mL 10-11 16:45: 00 10-11 16:02 :00 No 1000mL at 999 mL/hr, 1,000 mL, Intravenou s, ONCE, 1 dose, On 10/11/22 at 1045, STAT [facility] ondansetron (ZOFRAN (PF)) injection 4 mg 10-11 16:15: 00 10-11 16:15 :00 No 4mg 4 mg, Slow IV Push, ONCE, 1 dose, On 10/11/22 at 1015, VASILIY [facility] morpHINE (4 mg/mL) injection 4 mg 10-11 16:15: 00 10-11 16:14 :00 No 4mg 4 mg, Slow IV Push, ONCE, 1 dose, On 10/11/22 at 1015, [facility] iop[facility] (ISOVUE 370-500 mL) injection 120 mL 10-11 15:45: 00 10-11 14:43 :00 No [id number] 120mL 120 mL, Intravenou s, ONCE, 1 dose, On 10/11/22 at 0945, [facility] FENTanyl PF (SUBLIMAZE (PF)) injection 50 mcg 10-09 08:30: 00 10-09 07:23 :00 No 50ug 50 mcg, Slow IV Push, ONCE, 1 dose, On Carrie 10/09/22 at 0230, Routine [facility] iopamidol (ISOVUE 370-500 mL) injection 100 mL 10-09 07:15: 00 10-09 07:15 :00 No [id number] 100mL 100 mL, Intravenou s, ONCE, 1 dose, On Carrie 10/09/22 at 0115, Routine [facility] ketorolac (TORADOL) injection 30 mg 10-09 06:15: 00 10-09 05:25 :00 No 30mg 30 mg, Slow IV Push, ONCE, 1 dose, On Carrie 10/09/22 at 0015, Routine [facility] ondansetron (ZOFRAN) 4 mg tablet 10-09 00:00: 00 Yes [id number] 4mg Take 1 tablet by mouth every 8 (eight) hours as needed for Nausea and Vomiting (N/V). [facility] traMADoL (ULTRAM) 50 mg tablet 10-09 00:00: 00 Yes [id number] 50mg Take 1 tablet by mouth every 6 (six) hours as needed for Pain (scale 7-10). Indication s: acute pain [facility] ketorolac (TORADOL) injection 30 mg 2021-09 17:15: 00 08-20 16:35 :00 No 30mg 30 mg, Intramuscu lar, ONCE, 1 dose, On Thu08/20/22 at 1115, [facility] Amlodipine Besylate 10 MG oral Tablet 2021-09 00:00: 00 10-06 00:00 :00 No [facility] [place] [facility] morpHINE (4 mg/mL) injection 4 mg 06-09 13:15: 00 06-09 12:54 :00 No 4mg 4 mg, Slow IV Push, ONCE, 1 dose, On Thu06/09/22 at 0815, [facility] ketorolac (TORADOL) injection 30 mg 06-09 13:15: 06-09 12:55 :00 No 30mg 30 mg, Slow IV Push, ONCE, 1 dose, On Thu06/09/22 at 0815, [facility] iopamidol (ISOVUE 370-500 mL) injection 60 mL 06-09 13:07: 00 06-09 13:08 :00 No [id number] 60mL 60 mL, Intravenou s, ONCE, 1 dose, On Thu06/09/22 at 0815, Routine [facility] ondansetron (ZOFRAN (PF)) injection 4 mg 06-09 12:30: 00 06-09 12:54 :00 No 4mg 4 mg, Slow IV Push, ONCE, 1 dose, On Thu06/09/22 at 0730, [facility] dexamethaso ne sod phos PF injection 10 mg 06-09 12:30: 00 06-09 12:55 :00 No 10mg 10 mg, Slow IV Push, ONCE, 1 dose, On Thu06/09/22 at 0730, 1 mL [facility] traMADoL 50 mg tablet 06-09 00:00: 00 10-11 00:00 :00 No [id number] 50mg Take 1 tablet by mouth every 6 (six) hours as needed (pain). Indication s: acute pain [facility] lidocaine 5 % (700 mg/patch) patch 06-09 00:00: 00 10-11 00:00 :00 No [id number] Apply one patch to most painful area up to 12 hours a day as needed for pain. PHARMACIST : dispense one box [facility] predniSONE 20 mg tablet 06-09 00:00: 00 06-17 04:59 :00 No [id number] 40mg Take 2 tablets by mouth in the morning for 7 days. [facility] Dose Unknown 02-03 00:00: 00 No Dose Unknown 02-03 00:00: 00 No lisinopriL (PRINIVIL,Z ESTRIL) tablet 20 mg 11-01 03:00: 00 Yes 20mg 20 mg, Oral, QHS, First dose (after last modificati on) on Carrie 10/31/21 at 2100, Until Discontinu ed, Routine [facility] lisinopriL 20 mg tablet 11-01 00:00: 00 12-02 04:59 :00 No [id number] 20mg Take 1 tablet by mouth at bedtime for 30 days. [facility] lactated ringers IV infusion 1,000 mL 10-31 19:00: 00 Yes 1000mL at 75 mL/hr, 1,000 mL, IV Infusion, CONTINUOUS , Starting on Carrie 10/31/21 at 1300, Until Discontinu ed, Routine [facility] amLODIPine (NORVASC) tablet 10 mg 10-31 15:00: 00 Yes 10mg 10 mg, Oral, DAILY, First dose on Carrie 10/31/21 at 0900, Until Discontinu ed, Routine [facility] enoxaparin (LOVENOX) injection 40 mg 10-31 15:00: 00 Yes 40mg 40 mg, Subcutaneo us, DAILY, First dose on Carrie 10/31/21 at 0900, Until Discontinu ed, Routine [facility] lactated ringers IV infusion 1,000 mL 10-31 07:00: 00 10-31 18:45 :24 No 1000mL at 150 mL/hr, 1,000 mL, IV Infusion, CONTINUOUS , Starting on Thu10/31/21 at 0100, Until Thu10/31/21 at 1245, Routine [facility] lactated ringers IV infusion 1,000 mL 10-31 01:00: 00 10-31 06:52 :16 No 1000mL at 75 mL/hr, 1,000 mL, IV Infusion, CONTINUOUS , Starting on Thu10/30/21 at 1900, Until Thu10/31/21 at 0052, Routine [facility] morpHINE injection 4 mg 10-31 00:43: 35 11-01 00:42 :35 No 4mg 4 mg, Slow IV Push, Q4HPRN, Starting on Thu10/30/21 at 1843, Until Thu10/31/21 at 1842, Routine, Pain (scale 7-10) [facility] HYDROcodone -acetaminop hen (NORCO 5) 5-325 mg tablet 1 tablet 10-31 00:43: 32 11-02 00:42 :32 No 1{tbl} 1 tablet, Oral, Q6HPRN, Starting on Thu10/30/21 at 1843, Until Thu11/01/21 at 1842, Routine, Pain (scale 4-6) [facility] acetaminoph en (TYLENOL) tablet 650 mg 10-31 00:43: 22 Yes 650mg 650 mg, Oral, Q6HPRN, Starting on Thu10/30/21 at 1843, Until Discontinu ed, Routine, Pain (scale 1-3) [facility] ondansetron (ZOFRAN (PF)) injection 4 mg 10-30 21:15: 00 10-30 20:28 :00 No 4mg 4 mg, Slow IV Push, ONCE, 1 dose, On Thu10/30/21 at 1515, VASILIY [facility] morpHINE injection 4 mg 10-30 21:15: 00 2022- 02-16 20:29 :00 No 4mg 4 mg, Slow IV Push, ONCE, 1 dose, On Thu10/30/21 at 1515, STAT [facility] NaCl 0.9% (NS) bolus infusion 1,000 mL 10-30 21:15: 00 10-30 20:29 :00 No 1000mL at 999 mL/hr, 1,000 mL, IV Infusion, ONCE, 1 dose, On Thu10/30/21 at 1515, VASILIY [facility] iopamidol (ISOVUE 370-500 mL) injection 100 mL 10-30 20:37: 00 10-30 20:35 :00 No [id number] 100mL 100 mL, Intravenou s, ONCE, 1 dose, On Thu10/30/21 at 1445, Routine [facility] lisinopril 10 mg tablet 2- 00:00: 00 [...] mL, IV Piggyback, ONCE, 1 dose, [facility] 05/23/21 at 2245, STAT [facility] NaCl 0.9% (NS) bolus infusion 1,000 mL 05-24 03:00: 00 05-24 03:00 :00 No 1000mL at 999 mL/hr, 1,000 mL, IV Piggyback, ONCE, 1 dose, [facility] 05/23/21 at 2200, STAT [facility] NaCl 0.9% (NS) bolus infusion 500 mL 05-23 03:15: 00 05-23 15:14 :00 No 500mL at 999 mL/hr, 500 mL, IV Piggyback, ONCE, 1 dose, [facility] 05/22/21 at 2215, STAT [facility] dexamethaso ne (DECADRON PHOSPHATE) injection 10 mg 04-02 03:30: 00 04-02 02:47 :00 No 10mg 10 mg, Intramuscu lar, ONCE, 1 dose, 04/01/21 at 2230, STAT [facility] ketorolac (TORADOL) injection 60 mg 03-18 04:00: 00 03-18 02:56 :00 No 60mg 60 mg, Intramuscu lar, ONCE, 1 dose, 03/17/21 at 2300, VASILIY
Fa culty member approving Restricted medication : EMERGENCY ROOM, [facility] ibuprofen 800 mg tablet 03-17 00:00: 00 05-23 00:00 :00 No [id number] 800mg Take 1 tablet by mouth every 8 (eight) hours as needed for Pain (scale 4-6). [facility] acetaminoph en-codeine 300-30 mg tablet 03-17 00:00: 00 03-25 04:59 :00 No [id number] 1{tbl} Take 1 tablet by mouth every 6 (six) hours as needed for Pain (scale 7-10) for up to 7 days. Indication s: acute pain [facility] benzonatate (TESSALON PERLES) capsule 200 mg 3-04 05:00: 00 11-15 04:51 :00 No 200mg 200 mg, Oral, ONCE, 1 dose, Thu11/14/20 at 2300, Routine [facility] Dose Unknown 3-03 00:00: 00 No Dose Unknown 3-03 00:00: 00 No benzonatate 100 mg capsule 3-03 00:00: 00 05-23 00:00 :00 No [id number] 100mg Take 1 capsule by mouth 3 (three) times daily as needed for Cough. [facility] diphenhydrA MINE (BENADRYL) injection 25 mg 1-17 16:00: 00 09-30 15:17 :00 No 25mg 25 mg, Slow IV Push, ONCE, 1 dose, 09/30/20 at 1000, STAT [facility] metoclopram jerilyn HCl (REGLAN) injection 10 mg 09-30 16:00: 00 09-30 15:17 :00 No 10mg 10 mg, Slow IV Push, ONCE, 1 dose, [facility]30[facility]20 at 1000[facility] 0.9% (NS) bolus infusion 1,000 mL 09-30 15:00: 00 09-30 16:45 :00 No 1000mL at 999 mL/hr, 1,000 mL, IV Infusion, ONCE, 1 dose, 09/30/20 at 0900, [facility] amLODIPine (NORVASC) 10 mg tablet 09-30 00:00: 00 Yes [id number] 10mg Take 1 tablet by mouth daily. [facility] lisinopriL 10 mg tablet 09-30 00:00: 00 11-01 00:00 :00 No [id number] 10mg Take 1 tablet by mouth at bedtime. [facility] Dose Unknown 2019-09 0 00:00: 00 No Dose Unknown 2019-09 0 00:00: 00 No maalox:diph enhydrAMINE :lidocaine 2 % viscous 1:1:1 (FIRST-MOUT HWASH BLM) oral suspension 15 mL 2019-09 03:30: 00 07-02 03:30 :00 No 15mL 15 mL, Oral, ONCE, 1 dose, 07/01/20 at 2230, [facility] sodium chloride (NS) injection 5 mL 2019-09 03:00: 48 Yes 5mL 5 mL, Intravenou s, PRN, Starting 07/01/20 at 2200, Until Discontinu ed, Routine, IV line flushing [facility] sucralfate 1 gram tablet 2019-09 00:00: 00 07-16 05:59 :00 No [id number] 1g Take 1 tablet by mouth before meals and at bedtime for 14 days. [facility] lisinopril 10 mg tablet 04-12 00:00: 00 No 1mg amlodipine 10 mg tablet 04-12 00:00: 00 No 1mg No known medications No Un [facility] Immunizations Ordered Immunization Name Filled Immunization Name Date Status Comments Source SARS-COV-2 COVID-19 PFIZER VACCINE 2021-05-07 00:00:00 Completed [facility] SARS-COV-2 COVID-19 PFIZER VACCINE 2021-05-07 00:00:00 Completed [facility] SARS-COV-2 COVID-19 PFIZER VACCINE 2021-05-07 00:00:00 Completed [facility] SARS-COV-2 COVID-19 PFIZER VACCINE 2021-05-07 00:00:00 Completed [facility] SARS-COV-2 COVID-19 PFIZER VACCINE 2021-05-07 00:00:00 Completed [facility] SARS-COV-2 COVID-19 PFIZER VACCINE 2021-05-07 00:00:00 Completed [facility] SARS-COV-2 COVID-19 PFIZER VACCINE 2021-05-07 00:00:00 Completed [facility] SARS-COV-2 COVID-19 PFIZER VACCINE 2021-05-07 00:00:00 Completed [facility] SARS-COV-2 COVID-19 PFIZER VACCINE 2021-05-07 00:00:00 Completed [facility] SARS-COV-2 COVID-19 PFIZER VACCINE 2021-05-07 00:00:00 Completed [facility] SARS-COV-2 COVID-19 PFIZER VACCINE 2021-05-07 00:00:00 Completed [facility] SARS-COV-2 COVID-19 PFIZER VACCINE 2021-05-07 00:00:00 Completed [facility] SARS-COV-2 COVID-19 PFIZER VACCINE 2021-05-07 00:00:00 Completed [facility] SARS-COV-2 COVID-19 PFIZER VACCINE 2021-05-07 00:00:00 Completed [facility] SARS-COV-2 COVID-19 PFIZER VACCINE 2021-05-07 00:00:00 Completed [facility] SARS-COV-2 COVID-19 PFIZER VACCINE 2021-05-07 00:00:00 Completed [facility] SARS-COV-2 COVID-19 PFIZER VACCINE 2021-05-07 00:00:00 Completed [facility] SARS-COV-2 COVID-19 PFIZER VACCINE 2021-05-07 00:00:00 Completed [facility] SARS-COV-2 COVID-19 PFIZER VACCINE 2021-05-07 00:00:00 Completed [facility] SARS-COV-2 COVID-19 PFIZER VACCINE 2021-05-07 00:00:00 Completed [facility] SARS-COV-2 COVID-19 PFIZER VACCINE 2021-05-07 00:00:00 Completed [facility] SARS-COV-2 COVID-19 PFIZER VACCINE 2021-05-07 00:00:00 Completed [facility] SARS-COV-2 COVID-19 PFIZER VACCINE Unknown Completed [facility] SARS-COV-2 COVID-19 PFIZER VACCINE Unknown Completed [facility] SARS-COV-2 COVID-19 PFIZER VACCINE Unknown Completed [facility] SARS-COV-2 COVID-19 PFIZER VACCINE Unknown Completed [facility] SARS-COV-2 COVID-19 PFIZER VACCINE Unknown Completed [facility] SARS-COV-2 COVID-19 PFIZER VACCINE Unknown Completed [facility] SARS-COV-2 COVID-19 PFIZER VACCINE Unknown Completed [facility] SARS-COV-2 COVID-19 PFIZER VACCINE Unknown Completed [facility] SARS-COV-2 COVID-19 PFIZER VACCINE Unknown Completed [facility] SARS-COV-2 COVID-19 PFIZER VACCINE Unknown Completed [facility] SARS-COV-2 COVID-19 PFIZER VACCINE Unknown Completed [facility] SARS-COV-2 COVID-19 PFIZER VACCINE Unknown Completed [facility] SARS-COV-2 COVID-19 PFIZER VACCINE Unknown Completed [facility] SARS-COV-2 COVID-19 PFIZER VACCINE Unknown Completed [facility] SARS-COV-2 COVID-19 PFIZER VACCINE Unknown Completed [facility] SARS-COV-2 COVID-19 PFIZER VACCINE Unknown Completed [facility] SARS-COV-2 COVID-19 PFIZER VACCINE Unknown Completed [facility] SARS-COV-2 COVID-19 PFIZER VACCINE Unknown Completed [facility] SARS-COV-2 COVID-19 PFIZER VACCINE Unknown Completed [facility] SARS-COV-2 COVID-19 PFIZER VACCINE Unknown Completed [facility] SARS-COV-2 COVID-19 PFIZER VACCINE Unknown Completed [facility] Vital Signs Vital Name Observation Time Observation Value Comments S remberto Heart rate 2024-06-08 00:59:00 80 /min [facility] Respiratory rate 2024-06-08 00:59:00 15 /min [facility] Oxygen saturation in Arterial blood by Pulse oximetry 2024-06-08 00:59:00 97 /min [facility] Systolic blood pressure 2024-06-08 00:30:00 149 mm[Hg] [facility] Diastolic blood pressure 2024-06-08 00:30:00 98 mm[Hg] [facility] Body temperature 2024-06-07 21:55:00 36.5 Cindi [facility] Body height 2024-06-07 21:55:00 195.6 cm [facility] Body weight 2024-06-07 21:55:00 121.11 kg [facility] BMI 2024-06-07 21:55:00 31.66 kg/m2 [facility] Systolic blood pressure 2024-04-08 21:13:00 143 mm[Hg] [facility] ybo ld - External Diastolic blood pressure 2024-04-08 21:13:00 87 mm[Hg] [facility] Maria ybo ld - External Heart rate 2024-04-08 21:13:00 [...] Systolic blood pressure 2024-04-02 17:52:00 140 mm[Hg] [facility] Diastolic blood pressure 2024-04-02 17:52:00 93 mm[Hg] [facility] Heart rate 2024-04-02 17:52:00 80 /min [facility] 2024-04-02 17:52:00 37 Cindi [facility] Respiratory rate 2024-04-02 17:52:00 20 /min [facility] Oxygen saturation in Arterial blood by Pulse oximetry 2024-04-02 17:52:00 98 /min [facility] Body height 2024-04-02 13:32:00 195.6 cm [facility] Body weight 2024-04-02 13:32:00 120.3 kg [facility] BMI 2024-04-02 13:32:00 31.45 kg/m2 [facility] Systolic blood pressure 2024-03-30 13:10:00 [...] Systolic blood pressure 2024-02-21 04:48:00 132 mm[Hg] [facility] Diastolic blood pressure 2024-02-21 04:48:00 82 mm[Hg] [facility] Heart rate 2024-02-21 04:48:00 74 /min [facility] Body temperature 2024-02-21 04:48:00 36.72 Cindi [facility] Respiratory rate 2024-02-21 04:48:00 15 /min [facility] Oxygen saturation in Arterial blood by Pulse oximetry 2024-02-21 04:48:00 98 /min [facility] Body height 2024-02-21 02:43:00 195.6 cm [facility] Body weight 2024-02-21 02:43:00 115.667 kg [facility] BMI 2024-02-21 02:43:00 30.24 kg/m2 [facility] Systolic blood pressure 2023-12-17 20:32:00 112 mm[Hg] Luz Maria Ingramybo ld - External Diastolic blood pressure 2023-12-17 20:32:00 80 mm[Hg] [facility] Ingramybo [facility] - External Heart rate 2023-12-17 20:07:00 96 /min Sallie y Seybfarooq - External Body temperature 2023-12-17 20:07:00 36.44 [...] Systolic blood pressure 2023-12-10 03:57:00 157 mm[Hg] [facility] Diastolic blood pressure 2023-12-10 03:57:00 83 mm[Hg] [facility] Heart rate 2023-12-10 03:57:00 70 /min [facility] Respiratory rate 2023-12-10 03:57:00 16 /min [facility] Oxygen saturation in Arterial blood by Pulse oximetry 2023-12-10 03:57:00 99 /min [facility] Body temperature 2023-12-10 01:12:00 36.83 Cindi [facility] Body height 2023-12-10 01:12:00 195.6 cm [facility] weight 2023-12-10 01:12:00 122.471 kg [facility] BMI 2023-12-10 01:12:00 32.02 kg/m2 [facility] Systolic blood pressure 2023-10-06 20:55:00 [...] Systolic blood pressure 2023-08-04 05:38:00 164 mm[Hg] [facility] Diastolic blood pressure 2023-08-04 05:38:00 99 mm[Hg] [facility] Heart rate 2023-08-04 05:38:00 70 /min [facility] Body temperature 2023-08-04 05:38:00 37 Cindi [facility] Respiratory rate 2023-08-04 05:38:00 18 /min [facility] Oxygen saturation in Arterial blood by Pulse oximetry 2023-08-04 05:38:00 98 /min [facility] Body height 2023-08-04 02:22:00 195.6 cm [facility] Body weight 2023-08-04 02:22:00 118.389 kg [facility] BMI 2023-08-04 02:22:00 30.95 kg/m2 [facility] Systolic blood pressure 2023-07-25 18:00:00 146 mm[Hg] [facility] Diastolic blood pressure 2023-07-25 18:00:00 90 mm[Hg] [facility] Heart rate 2023-07-25 18:00:00 75 /min [facility] Respiratory rate 2023-07-25 18:00:00 18 /min [facility] Oxygen saturation in Arterial blood by Pulse oximetry 2023-07-25 18:00:00 95 /min [facility] Body temperature 2023-07-25 15:57:00 37.61 Cindi [facility] Body height 2023-07-25 15:57:00 195.6 cm [facility] Body weight 2023-07-25 15:57:00 118.842 kg [facility] BMI 2023-07-25 15:57:00 31.07 kg/m2 [facility] Systolic blood pressure 2023-07-24 21:05:00 140 mm[Hg] [facility] Diastolic blood pressure 2023-07-24 21:05:00 94 mm[Hg] [facility] Heart rate 2023-07-24 21:05:00 71 /min [facility] Body temperature 2023-07-24 21:05:00 36.67 Cindi [facility] Respiratory rate 2023-07-24 21:05:00 18 /min [facility] Oxygen saturation in Arterial blood by Pulse oximetry 2023-07-24 21:05:00 97 /min [facility] Body weight 2023-07-24 18:35:00 115.667 kg [facility] BMI 2023-07-24 18:35:00 30.24 kg/m2 [facility] Systolic blood pressure 2023-07-12 03:30:00 156 mm[Hg] [facility] Diastolic blood pressure 2023-07-12 03:30:00 101 mm[Hg] [facility] Heart rate 2023-07-12 03:30:00 90 /min [facility] Respiratory rate 2023-07-12 03:30:00 20 /min [facility] Oxygen saturation in Arterial blood by Pulse oximetry 2023-07-12 03:30:00 94 /min [facility] Body temperature 2023-07-12 01:57:00 36.67 Cindi [facility] Body weight 2023-07-12 01:57:00 115.667 kg [facility] BMI 2023-07-12 01:57:00 30.24 kg/m2 [facility] Systolic blood pressure 2023-07-10 13:34:00 140 mm[Hg] [facility] Diastolic blood pressure 2023-07-10 13:34:00 95 mm[Hg] [facility] Heart rate 2023-07-10 13:34:00 76 [facility] Body temperature 2023-07-10 13:34:00 35.94 Cindi [facility] Body height 2023-07-10 13:34:00 195.6 cm [facility] Body weight 2023-07-10 13:34:00 118.298 kg [facility] BMI 2023-07-10 13:34:00 30.93 kg/m2 [facility] Oxygen saturation in Arterial blood by Pulse oximetry 2023-07-10 13:34:00 97 /min [facility] Systolic blood pressure 2023-07-08 13:43:00 140 mm[Hg] Luz Maria Saucedo ld - External Diastolic blood pressure 2023-07-08 13:43:00 100 mm[Hg] Luz Maria Saucedo ld - External Heart rate 2023-07-08 13:43:00 68 /min Sallie Ng - External Body temperature 2023-07-08 13:43:00 36.67 Cindi Luz Maria Seybold - External Respiratory rate 2023-07-08 13:43:00 16 /min Luz Maria Seybold - External Body height 2023-07-08 13:43:00 195.6 cm Kelsi ey Seybold - External Body weight 2023-07-08 13:43:00 116.121 kg Kelsi ey Seybold - External BMI 2023-07-08 13:43:00 30.36 kg/m2 Kelsi ey Seybold - External Systolic blood pressure 2023-07-03 12:45:10 149 mm[Hg] [facility] Diastolic blood pressure 2023-07-03 12:45:10 88 mm[Hg] [facility] Heart rate 2023-07-03 12:45:10 88 /min [facility] Respiratory rate 2023-07-03 12:45:10 16 /min [facility] Oxygen saturation in Arterial blood by Pulse oximetry 2023-07-03 12:45:10 97 /min [facility] Body temperature 2023-07-03 09:47:00 36.78 Cindi [facility] Body height 2023-07-03 09:47:00 195.6 cm [facility] Body weight 2023-07-03 09:47:00 113.853 kg [facility] BMI 2023-07-03 09:47:00 29.76 kg/m2 [facility] Systolic blood pressure 2023-05-20 20:08:00 [...] Systolic blood pressure 2023-05-08 03:30:00 133 mm[Hg] [facility] Diastolic blood pressure 2023-05-08 03:30:00 87 mm[Hg] [facility] Heart rate 2023-05-08 03:30:00 70 /min [facility] Respiratory rate 2023-05-08 03:30:00 18 /min [facility] Oxygen saturation in Arterial blood by Pulse oximetry 2023-05-08 03:30:00 97 /min [facility] Body temperature 2023-05-07 22:36:00 36.72 Cindi [facility] Body weight 2023-05-07 22:36:00 113.853 kg [facility] BMI 2023-05-07 22:36:00 30.55 kg/m2 [facility] Systolic blood pressure 2023-05-02 05:00:00 134 mm[Hg] [facility] Diastolic blood pressure 2023-05-02 05:00:00 85 mm[Hg] [facility] Heart rate 2023-05-02 05:00:00 72 /min [facility] Oxygen saturation in Arterial blood by Pulse oximetry 2023-05-02 05:00:00 98 /min [facility] Body temperature 2023-05-02 02:28:00 37.28 Cindi [facility] Respiratory rate 2023-05-02 02:28:00 20 /min [facility] Body height 2023-05-02 02:28:00 193 cm [facility] Body weight 2023-05-02 02:28:00 113.399 kg [facility] BMI 2023-05-02 02:28:00 30.43 kg/m2 [facility] Systolic blood pressure 2023-04-22 18:02:36 130 mm[Hg] [facility] Diastolic blood pressure 2023-04-22 18:02:36 80 mm[Hg] [facility] Heart rate 2023-04-22 18:02:36 68 /min [facility] Body temperature 2023-04-22 18:02:36 36.78 Cindi [facility] Respiratory rate 2023-04-22 18:02:36 17 /min [facility] Oxygen saturation in Arterial blood by Pulse oximetry 2023-04-22 18:02:36 96 /min [facility] Body height 2023-04-22 08:58:00 195.6 cm [facility] Body weight 2023-04-22 08:58:00 113.944 kg [facility] BMI 2023-04-22 08:58:00 29.79 kg/m2 [facility] Systolic blood pressure 2023-04-16 13:30:00 142 mm[Hg] [facility] Diastolic blood pressure 2023-04-16 13:30:00 98 mm[Hg] [facility] Heart rate 2023-04-16 13:30:00 65 [facility] 2023-04-16 13:30:00 17 /min [facility] Oxygen saturation in Arterial blood by Pulse oximetry 2023-04-16 13:30:00 98 /min [facility] Systolic blood pressure 2023-04-16 12:32:00 155 mm[Hg] [facility] Diastolic blood pressure 2023-04-16 12:32:00 108 mm[Hg] [facility] Heart rate 2023-04-16 12:32:00 61 /min [facility] Respiratory rate 2023-04-16 12:32:00 18 /min [facility] Oxygen saturation in Arterial blood by Pulse oximetry 2023-04-16 12:32:00 97 /min [facility] Body temperature 2023-04-16 12:09:00 36.72 Cindi [facility] Body weight 2023-04-16 12:09:00 118.842 kg [facility] BMI 2023-04-16 12:09:00 31.89 kg/m2 [facility] Systolic blood pressure 2023-04-01 08:00:00 130 mm[Hg] [facility] Diastolic blood pressure 2023-04-01 08:00:00 75 mm[Hg] [facility] Heart rate 2023-04-01 08:00:00 75 /min [facility] Respiratory rate 2023-04-01 08:00:00 19 /min [facility] Oxygen saturation in Arterial blood by Pulse oximetry 2023-04-01 08:00:00 96 /min [facility] Body temperature 2023-04-01 05:02:00 36.28 Cindi [facility] Body height 2023-04-01 05:02:00 193 cm [facility] Body weight 2023-04-01 05:02:00 111.585 kg [facility] BMI 2023-04-01 05:02:00 29.94 kg/m2 [facility] Systolic blood pressure 2023-02-13 21:00:00 157 mm[Hg] [facility] Diastolic blood pressure 2023-02-13 21:00:00 89 mm[Hg] [facility] Heart rate 2023-02-13 21:00:00 102 /min [facility] Body temperature 2023-02-13 21:00:00 37.89 Cindi [facility] Respiratory rate 2023-02-13 21:00:00 16 /min [facility] Body weight 2023-02-13 21:00:00 124.286 kg [facility] BMI 2023-02-13 21:00:00 33.35 kg/m2 [facility] Oxygen saturation in Arterial blood by Pulse oximetry 2023-02-13 21:00:00 97 /min [facility] Systolic blood pressure 2022-12-09 06:33:00 152 mm[Hg] [facility] Diastolic blood pressure 2022-12-09 06:33:00 96 mm[Hg] [facility] Heart rate 2022-12-09 06:33:00 60 /min [facility] Respiratory rate 2022-12-09 06:33:00 11 /min [facility] Oxygen saturation in Arterial blood by Pulse oximetry 2022-12-09 06:33:00 96 /min [facility] Body temperature 2022-12-09 04:51:00 37 Cindi [facility] Body height 2022-12-09 04:51:00 193 cm [facility] Body weight 2022-12-09 04:51:00 116.121 kg [facility] BMI 2022-12-09 04:51:00 31.16 kg/m2 [facility] Systolic blood pressure 2022-11-25 04:51:00 148 mm[Hg] [facility] Diastolic blood pressure 2022-11-25 04:51:00 96 mm[Hg] [facility] Heart rate 2022-11-25 04:51:00 71 /min [facility] Body temperature 2022-11-25 04:51:00 37 Cindi [facility] Respiratory rate 2022-11-25 04:51:00 16 /min [facility] Body height 2022-11-25 04:51:00 193 cm [facility] Body weight 2022-11-25 04:51:00 113.399 kg [facility] BMI 2022-11-25 04:51:00 30.43 kg/m2 [facility] Oxygen saturation in Arterial blood by Pulse oximetry 2022-11-25 04:51:00 97 /min [facility] Systolic blood pressure 2022-10-12 21:48:00 152 mm[Hg] [facility] Diastolic blood pressure 2022-10-12 21:48:00 82 mm[Hg] [facility] Heart rate 2022-10-12 21:48:00 70 /min [facility] Body temperature 2022-10-12 21:48:00 36.89 Cindi [facility] Respiratory rate 2022-10-12 21:48:00 18 /min [facility] Oxygen saturation in Arterial blood by Pulse oximetry 2022-10-12 21:48:00 94 /min [facility] Body height 2022-10-11 17:50:00 193 cm [facility] Body weight 2022-10-11 17:50:00 113.399 kg [facility] BMI 2022-10-11 17:50:00 30.43 kg/m2 [facility] Systolic blood pressure 2022-10-09 07:25:23 138 mm[Hg] [facility] Diastolic blood pressure 2022-10-09 07:25:23 86 mm[Hg] [facility] Heart rate 2022-10-09 07:25:23 73 /min [facility] Respiratory rate 2022-10-09 07:25:23 20 /min [facility] Oxygen saturation in Arterial blood by Pulse oximetry 2022-10-09 07:25:23 98 /min [facility] Body temperature 2022-10-09 04:12:00 37.28 Cindi [facility] Body height 2022-10-09 04:12:00 193 cm [facility] Body weight 2022-10-09 04:12:00 113.399 kg [facility] BMI 2022-10-09 04:12:00 30.43 kg/m2 [facility] Systolic blood pressure 2022-08-20 14:40:00 147 mm[Hg] [facility] Diastolic blood pressure 2022-08-20 14:40:00 95 mm[Hg] [facility] Heart rate 2022-08-20 14:40:00 75 /min [facility] Body temperature 2022-08-20 14:40:00 36.89 Cindi [facility] Respiratory rate 2022-08-20 14:40:00 20 /min [facility] Body height 2022-08-20 14:40:00 190.5 cm [facility] Body weight 2022-08-20 14:40:00 115.667 kg [facility] BMI 2022-08-20 14:40:00 31.87 kg/m2 [facility] Oxygen saturation in Arterial blood by Pulse oximetry 2022-08-20 14:40:00 98 /min [facility] height 2022-07-11 09:30:00 77 [in_i] [facility] weight 2022-07-11 09:30:00 253.6 [lb_av] Co m[facility] temperature 2022-07-11 09:30:00 98.3 [degF] Com mon [facility] bmi 2022-07-11 09:30:00 30.07 kg/m2 Comm on [facility] oximetry 2022-07-11 09:30:00 99 % Commo n [facility] respiratory rate 2022-07-11 09:30:00 18 /min [facility] blood pressure systolic 2022-07-11 09:30:00 135 mm[Hg] [facility] blood pressure diastolic 2022-07-11 09:30:00 81 mm[Hg] [facility] Systolic blood pressure 2022-06-09 15:00:00 141 mm[Hg] [facility] Diastolic blood pressure 2022-06-09 15:00:00 94 mm[Hg] [facility] Heart rate 2022-06-09 15:00:00 59 /min [facility] Respiratory rate 2022-06-09 15:00:00 16 /min [facility] Oxygen saturation in Arterial blood by Pulse oximetry 2022-06-09 15:00:00 97 /min [facility] Body temperature 2022-06-09 11:56:00 36.17 Cindi [facility] Body height 2022-06-09 11:56:00 195.6 cm [facility] Body weight 2022-06-09 11:56:00 127.007 kg [facility] BMI 2022-06-09 11:56:00 33.20 kg/m2 [facility] Systolic blood pressure 2021-11-01 17:12:00 152 mm[Hg] [facility] Diastolic blood pressure 2021-11-01 17:12:00 89 mm[Hg] [facility] Heart rate 2021-11-01 17:12:00 72 /min [facility] Body temperature 2021-11-01 17:12:00 36.17 Cindi [facility] Respiratory rate 2021-11-01 17:12:00 18 /min [facility] Oxygen saturation in Arterial blood by Pulse oximetry 2021-11-01 17:12:00 94 /min [facility] Body height 2021-10-30 23:19:00 195.6 cm [facility] Body weight 2021-10-30 23:19:00 116.983 kg [facility] BMI 2021-10-30 23:19:00 30.58 kg/m2 [facility] Systolic blood pressure 2021-05-24 06:00:00 135 mm[Hg] [facility] Diastolic blood pressure 2021-05-24 06:00:00 97 mm[Hg] [facility] Heart rate 2021-05-24 06:00:00 88 /min [facility] Respiratory rate 2021-05-24 06:00:00 21 /min [facility] Oxygen saturation in Arterial blood by Pulse oximetry 2021-05-24 06:00:00 94 /min [facility] Body temperature 2021-05-24 01:47:00 37.28 Cindi [facility] Body height 2021-05-24 01:47:00 195.6 cm [facility] Body weight 2021-05-24 01:47:00 127.461 kg [facility] BMI 2021-05-24 01:47:00 33.32 kg/m2 [facility] Systolic blood pressure 2021-05-22 23:36:00 154 mm[Hg] [facility] Diastolic blood pressure 2021-05-22 23:36:00 112 mm[Hg] [facility] Heart rate 2021-05-22 23:36:00 97 /min [facility] Body temperature 2021-05-22 23:36:00 36 Cindi [facility] Respiratory rate 2021-05-22 23:36:00 19 /min [facility] Body height 2021-05-22 23:36:00 195.6 cm [facility] Body weight 2021-05-22 23:36:00 127.007 kg [facility] BMI 2021-05-22 23:36:00 33.20 kg/m2 [facility] Oxygen saturation in Arterial blood by Pulse oximetry 2021-05-22 23:36:00 96 /min [facility] Systolic blood pressure 2021-05-02 00:01:00 157 mm[Hg] [facility] Diastolic blood pressure 2021-05-02 00:01:00 93 mm[Hg] [facility] Heart rate 2021-05-02 00:01:00 84 /min [facility] Body temperature 2021-05-02 00:01:00 36.56 Cindi [facility] Respiratory rate 2021-05-02 00:01:00 18 /min [facility] Body weight 2021-05-02 00:01:00 126.554 kg [facility] BMI 2021-05-02 00:01:00 33.08 kg/m2 [facility] Oxygen saturation in Arterial blood by Pulse oximetry 2021-05-02 00:01:00 97 /min [facility] Systolic blood pressure 2021-04-02 01:01:00 144 mm[Hg] [facility] Diastolic blood pressure 2021-04-02 01:01:00 94 mm[Hg] [facility] Heart rate 2021-04-02 01:01:00 89 /min [facility] Body temperature 2021-04-02 01:01:00 37.06 Cindi [facility] Respiratory rate 2021-04-02 01:01:00 18 /min [facility] Body weight 2021-04-02 01:01:00 129.729 kg [facility] BMI 2021-04-02 01:01:00 33.91 kg/m2 [facility] Oxygen saturation in Arterial blood by Pulse oximetry 2021-04-02 01:01:00 100 /min [facility] Systolic blood pressure 2021-04-02 01:01:00 144 mm[Hg] [facility] Diastolic blood pressure 2021-04-02 01:01:00 94 mm[Hg] [facility] Heart rate 2021-04-02 01:01:00 89 /min [facility] Body temperature 2021-04-02 01:01:00 37.06 Cindi [facility] Respiratory rate 2021-04-02 01:01:00 18 /min [facility] Body weight 2021-04-02 01:01:00 129.729 kg [facility] BMI 2021-04-02 01:01:00 33.91 kg/m2 [facility] Oxygen saturation in Arterial blood by Pulse oximetry 2021-04-02 01:01:00 100 /min [facility] Systolic blood pressure 2021-03-18 03:16:13 140 mm[Hg] [facility] Diastolic blood pressure 2021-03-18 03:16:13 80 mm[Hg] [facility] Heart rate 2021-03-18 03:16:13 80 /min [facility] Body temperature 2021-03-18 03:16:13 36.67 Cindi [facility] Respiratory rate 2021-03-18 03:16:13 19 /min [facility] Oxygen saturation in Arterial blood by Pulse oximetry 2021-03-18 03:16:13 99 /min [facility] Body weight 2021-03-18 01:02:00 129.729 kg [facility] BMI 2021-03-18 01:02:00 33.91 kg/m2 [facility] Systolic blood pressure 2021-03-18 03:16:13 140 mm[Hg] [facility] Diastolic blood pressure 2021-03-18 03:16:13 80 mm[Hg] [facility] Heart rate 2021-03-18 03:16:13 80 /min [facility] Body temperature 2021-03-18 03:16:13 36.67 Cindi [facility] Respiratory rate 2021-03-18 03:16:13 19 /min [facility] Oxygen saturation in Arterial blood by Pulse oximetry 2021-03-18 03:16:13 99 /min [facility] Body weight 2021-03-18 01:02:00 129.729 kg [facility] BMI 2021-03-18 01:02:00 33.91 kg/m2 [facility] Oxygen saturation in Arterial blood by Pulse oximetry 2020-11-15 04:31:00 97 /min [facility] Systolic blood pressure 2020-11-15 03:25:00 173 mm[Hg] [facility] Diastolic blood pressure 2020-11-15 03:25:00 97 mm[Hg] [facility] Heart rate 2020-11-15 03:25:00 84 /min [facility] Body temperature 2020-11-15 03:25:00 36.67 Cindi [facility] Respiratory rate 2020-11-15 03:25:00 20 /min [facility] Body weight 2020-11-15 03:25:00 132.45 kg [facility] BMI 2020-11-15 03:25:00 34.63 kg/m2 [facility] Oxygen saturation in Arterial blood by Pulse oximetry 2020-11-15 04:31:00 97 /min [facility] Systolic blood pressure 2020-11-15 03:25:00 173 mm[Hg] [facility] Diastolic blood pressure 2020-11-15 03:25:00 97 mm[Hg] [facility] Heart rate 2020-11-15 03:25:00 84 /min [facility] Body temperature 2020-11-15 03:25:00 36.67 Cindi [facility] Respiratory rate 2020-11-15 03:25:00 20 /min [facility] Body weight 2020-11-15 03:25:00 132.45 kg [facility] BMI 2020-11-15 03:25:00 34.63 kg/m2 [facility] Systolic blood pressure 2020-09-30 16:30:00 121 mm[Hg] [facility] Diastolic blood pressure 2020-09-30 16:30:00 66 mm[Hg] [facility] Heart rate 2020-09-30 16:30:00 72 /min [facility] Respiratory rate 2020-09-30 16:30:00 19 /min [facility] Oxygen saturation in Arterial blood by Pulse oximetry 2020-09-30 16:30:00 94 /min [facility] Body weight 2020-09-30 14:20:00 136.079 kg [facility] BMI 2020-09-30 14:20:00 35.57 kg/m2 [facility] Body temperature 2020-09-30 14:10:00 37.06 Cindi [facility] Systolic blood pressure 2020-09-30 16:30:00 121 mm[Hg] [facility] Diastolic blood pressure 2020-09-30 16:30:00 66 mm[Hg] [facility] Heart rate 2020-09-30 16:30:00 72 /min [facility] Respiratory rate 2020-09-30 16:30:00 19 /min [facility] Oxygen saturation in Arterial blood by Pulse oximetry 2020-09-30 16:30:00 94 /min [facility] Body weight 2020-09-30 14:20:00 136.079 kg [facility] BMI 2020-09-30 14:20:00 35.57 kg/m2 [facility] Body temperature 2020-09-30 14:10:00 37.06 Cindi [facility] Systolic blood pressure 2020-07-02 04:00:00 132 mm[Hg] [facility] Diastolic blood pressure 2020-07-02 04:00:00 84 mm[Hg] [facility] Heart rate 2020-07-02 04:00:00 89 /min [facility] Oxygen saturation in Arterial blood by Pulse oximetry 2020-07-02 04:00:00 95 /min [facility] Body temperature 2020-07-02 02:53:00 36.94 Cindi [facility] Respiratory rate 2020-07-02 02:53:00 18 /min [facility] Body height 2020-07-02 02:53:00 195.6 cm [facility] Body weight 2020-07-02 02:53:00 136.079 kg [facility] BMI 2020-07-02 02:53:00 35.57 kg/m2 [facility] Systolic blood pressure 2020-07-02 04:00:00 132 mm[Hg] [facility] Diastolic blood pressure 2020-07-02 04:00:00 84 mm[Hg] [facility] Heart rate 2020-07-02 04:00:00 89 /min [facility] Oxygen saturation in Arterial blood by Pulse oximetry 2020-07-02 04:00:00 95 /min [facility] Body temperature 2020-07-02 02:53:00 36.94 Cindi [facility] Respiratory rate 2020-07-02 02:53:00 18 /min [facility] Body height 2020-07-02 02:53:00 195.6 cm [facility] Body weight 2020-07-02 02:53:00 136.079 kg [facility] BMI 2020-07-02 02:53:00 35.57 kg/m2 [facility] BP Systolic 2022-07-09 10:22:00 158 [...] Performing Clinician Source EKG-12 LEAD 2024-06-08 00:53:38 Luke Clarke [facility] XR CHEST 2 VW 2024-06-07 22:33:08 Luke Clarke [facility] CREATINE KINASE 2024-06-07 22:26:00 Luke Clarke [facility] LIPASE 2024-06-07 22:26:00 Luke Clarke [facility] MAGNESIUM 2024-06-07 22:26:00 Luke Clarke [facility] TROPONIN I 2024-06-07 22:26:00 Luke Clarke [facility] COMP. METABOLIC PANEL ([id number]) 2024-06-07 22:26:00 Luke Clarke [facility] CBC WITH DIFF 2024-06-07 22:26:00 Luke Clarke [facility] D-DIMER 2024-06-07 22:26:00 Luke Clarke [facility] INFLUENZA A/B RSV COVID NAAT 2024-06-07 22:26:00 Luke Clarke [facility] N-TERMINAL PRO-BNP 2024-06-07 22:26:00 Luke Clarke [facility] CT ABDOMEN PELVIS W CONTRAST 2024-04-02 14:49:11 Trevor Taylor [facility] URINALYSIS 2024-04-02 14:18:00 Trevor Taylor [facility] LIPASE 2024-04-02 14:12:00 Trevor Taylor [facility] MAGNESIUM 2024-04-02 14:12:00 Trevor Taylor [facility] TROPONIN I 2024-04-02 14:12:00 [facility] COMP. METABOLIC PANEL ([id number]) 2024-04-02 14:12:00 Trevor Taylor Tiffanie [facility] LIPID PANEL ([id number])(TOTAL CHOLESTEROL, TRIGLYCERIDES, HDL) 2024-04-02 14:12:00 Tervor Taylor Tiffanie [facility] CBC WITH DIFF 2024-04-02 14:12:00 Trevor Taylor [facility] LIPASE 2024-02-21 03:08:00 Leti Rivas [facility] COMP. METABOLIC PANEL ([id number]) 2024-02-21 03:08:00 Leti Rivas [facility] CBC WITH DIFF 2024-02-21 03:08:00 Leti Rivas [facility] URINALYSIS 2024-02-21 03:08:00 Leti Rivas [facility] CT ABDOMEN PELVIS W CONTRAST 2023-12-10 02:36:24 Abraham Orantes [facility] COMP. METABOLIC PANEL ([id number]) 2023-12-10 02:05:00 Abraham Orantes [facility] CBC WITH DIFF 2023-12-10 02:05:00 Abraham Orantes [facility] URINALYSIS 2023-12-10 02:05:00 Abraham Orantes [facility] CT ABDOMEN PELVIS WO CONTRAST 2023-08-04 04:23:15 Abraham Orantes [facility] BASIC METABOLIC PANEL (NA, K, CL, CO2, GLUCOSE, BUN, CREATININE, CA) 2023-08-04 02:57:00 Abraham Orantes [facility] CBC WITH DIFF 2023-08-04 02:57:00 Abraham Orantes [facility] URINALYSIS 2023-08-04 02:57:00 Abraham Orantes [facility] NOTICE OF PRIVACY PRACTICES 2023-08-04 02:16:09 Doctor Unassigned, [place] [facility] CONSENT/REFUSAL FOR DIAGNOSIS AND TREATMENT 2023-08-04 02:15:41 Doctor Unassigned, [place] [facility] LIPASE 2023-07-25 16:37:00 [facility] MAGNESIUM 2023-07-25 16:37:00 [facility] TROPONIN I 2023-07-25 16:37:00 [facility] COMP. METABOLIC PANEL ([id number]) 2023-07-25 16:37:00 Trevor Taylor [facility] CBC WITH DIFF 2023-07-25 16:37:00 Trevor Taylor [facility] URINALYSIS 2023-07-25 16:37:00 [facility] CONSENT/REFUSAL FOR DIAGNOSIS AND TREATMENT 2023-07-25 15:41:41 Doctor Unassigned, [place] [facility] US GALL BLADDER 2023-07-24 22:46:02 Johnathan Avila [facility] URINALYSIS 2023-07-24 20:10:00 Johnathan Avila [facility] EXTRA TUBE URINE CULTURE 2023-07-24 20:10:00 Ember Avila [facility] LIPASE 2023-07-24 20:09:00 Johnathan Avila [facility] COMP. METABOLIC PANEL ([id number]) 2023-07-24 20:09:00 Johnathan Avila [facility] LIPID PANEL ([id number])(TOTAL CHOLESTEROL, TRIGLYCERIDES, HDL) 2023-07-24 20:09:00 Johnathan Avila [facility] CBC WITH DIFF 2023-07-24 20:09:00 Johnathan Avila [facility] CONSENT/REFUSAL FOR DIAGNOSIS AND TREATMENT 2023-07-24 18:31:11 Doctor Unassigned, [place] [facility] XR CHEST 2 VW 2023-07-12 03:54:00 [facility] 2023-07-12 02:31:00 [facility] TR[facility] 2023-07-12 02:14:00 Norm Saleh [facility] COMP. METABOLIC PANEL ([id number]) 2023-07-12 02:14:00 Norm Saleh [facility] CBC WITH DIFF 2023-07-12 02:14:00 Norm Saleh [facility] COVID-19 (ID NOW RAPID TESTING) 2023-07-12 02:14:00 Norm Saleh [facility] CONSENT/REFUSAL FOR DIAGNOSIS AND TREATMENT 2023-07-12 01:47:09 Doctor Unassigned, [place] [facility] CONSENT FOR MEDICAL TREATMENT OF A MINOR 2023-07-10 05:01:00 Doctor Unassigned, [place] [facility] CT ABDOMEN PELVIS W CONTRAST 2023-07-03 10:43:57 Haresh Santamaria [facility] URINALYSIS 2023-07-03 10:23:00 Haresh Santamaria [facility] LIPASE 2023-07-03 10:11:00 Haresh Santamaria [facility] COMP. METABOLIC PANEL ([id number]) 2023-07-03 10:11:00 Haresh Santamaria [facility] CBC WITH DIFF 2023-07-03 10:11:00 Haresh Santamaria [facility] CONSENT/REFUSAL FOR DIAGNOSIS AND TREATMENT 2023-07-03 09:36:41 Doctor Unassigned, [place] [facility] CT ABDOMEN PELVIS W CONTRAST 2023-05-08 02:15:59 Riya Joseph [facility] HB ABO GROUPING 2023-05-08 01:25:00 Elvin Joseph [facility] LIPASE 2023-05-08 01:19:00 Elvin Joseph [facility] COMP. METABOLIC PANEL ([id number]) 2023-05-08 01:19:00 Riya Joseph [facility] CBC WITH DIFF 2023-05-08 01:19:00 Elvin Joseph Marie [facility] COVID-19 (ID NOW RAPID TESTING) 2023-05-08 01:19:00 Riya Joseph Connie [facility] CONSENT/REFUSAL FOR DIAGNOSIS AND TREATMENT 2023-05-07 22:22:14 Doctor Unassigned, [place] [facility] LIPASE 2023-05-02 03:01:00 Aydin Matos [facility] COMP. METABOLIC PANEL ([id number]) 2023-05-02 03:01:00 Aydin Matos [facility] ETHANOL 2023-05-02 03:01:00 Aydin Matos [facility] CBC WITH DIFF 2023-05-02 03:01:00 Aydin Matos [facility] URINALYSIS 2023-05-02 03:01:00 Aydin Matos [facility] URINE DRUG (IMMUNOASSAY) - COMPREHENSIVE DRUG SCREEN W/O REFLEX 2023-05-02 03:01:00 Aydin Matos [facility] CONSENT/REFUSAL FOR DIAGNOSIS AND TREATMENT 2023-05-02 02:28:20 Doctor Unassigned, [place] [facility] BASIC METABOLIC PANEL (NA, K, CL, CO2, GLUCOSE, BUN, CREATININE, CA) 2023-04-22 16:47:00 Natali Alexander [facility] LIPASE 2023-04-22 12:58:00 Natali Alexander [facility] BASIC METABOLIC PANEL (NA, K, CL, CO2, GLUCOSE, BUN, CREATININE, CA) 2023-04-22 12:58:00 Natali Alexander [facility] URINALYSIS 2023-04-22 11:44:00 Abraham Orantes [facility] CREATINE KINASE 2023-04-22 09:06:00 Natali Alexander [facility] LIPASE 2023-04-22 09:06:00 Natali Alexander [facility] COMP. METABOLIC PANEL ([id number]) 2023-04-22 09:06:00 Abraham Orantes [facility] CBC WITH DIFF 2023-04-22 09:06:00 Abraham Orantes [facility] CONSENT/REFUSAL FOR DIAGNOSIS AND TREATMENT 2023-04-22 08:52:58 Doctor Unassigned, [place] [facility] LIPASE 2023-04-16 12:30:00 Christa [facility] TROPONIN I 2023-04-16 12:30:00 Christa [facility] COMP. METABOLIC PANEL ([id number]) 2023-04-16 12:30:00 [facility] 2023-04-16 12:30:00 Christa [facility] CONSENT/REFUSAL FOR DIAGNOSIS AND TREATMENT 2023-04-16 11:48:23 Doctor Unassigned, [place] [facility] LIPASE 2023-04-01 05:08:00 [facility] TROPONIN I 2023-04-01 05:08:00 Hemalatha Mora [facility] COMP. METABOLIC PANEL ([id number]) 2023-04-01 05:08:00 Hemalatha Mora [facility] CBC WITH DIFF 2023-04-01 05:08:00 Hemalatha Mora [facility] URINALYSIS 2023-04-01 05:08:00 Hemalatha [facility] CONSENT/REFUSAL FOR DIAGNOSIS AND TREATMENT 2023-04-01 04:51:45 Doctor Unassigned, [place] [facility] ASSIGNMENT OF BENEFITS 2023-02-13 21:19:49 Docto r Unassigned, [place] [facility] POCT GLUCOSE (AUTOMATED) 2023-02-13 21:00:00 Alan Gonzales [facility] CONSENT/REFUSAL FOR DIAGNOSIS AND TREATMENT 2023-02-13 20:50:30 Doctor Unassigned, [place] [facility] REFERRAL- REQUEST/RESPONSE 2023-01-05 05:01:00 Doctor Unassigned, [place] [facility] LIPASE 2022-12-09 05:03:00 Soham Clarke [facility] COMP. METABOLIC PANEL ([id number]) 2022-12-09 05:03:00 Soham Clarke [facility] CBC WITH DIFF 2022-12-09 05:03:00 [facility] 2022-12-09 05:03:00 Soham Clarke [facility] NOTICE OF PRIVACY PRACTICES 2022-12-09 04:46:36 Doctor Unassigned, [place] [facility] CONSENT/REFUSAL FOR DIAGNOSIS AND TREATMENT 2022-12-09 04:46:16 Doctor Unassigned, [place] [facility] CT ABDOMEN PELVIS W CONTRAST 2022-11-25 05:38:20 Lion Nascimento [facility] LIPASE 2022-11-25 05:06:00 [facility] HEPATIC FUNCTION PANEL ([id number]) (ALB,T.PRO,BILI T,BU/BC,ALT,AST,ALK PHOS) 2022-11-25 05:06:00 [facility] BASIC METABOLIC PANEL (NA, K, CL, CO2, GLUCOSE, BUN, CREATININE, CA) 2022-11-25 05:06:00 [facility] CBC WITH DIFF 2022-11-25 05:06:00 Lion Nascimento [facility] URINALYSIS 2022-11-25 05:06:00 Lion Nascimento [facility] CONSENT/REFUSAL FOR DIAGNOSIS AND TREATMENT 2022-11-25 04:35:51 Doctor Unassigned, [place] [facility] EXTERNAL PROVIDER RECORDS 2022-10-23 06:01:00 Do ctor Unassigned, [place] [facility] CBC WITH DIFF 2022-10-12 21:26:00 Lb Bates Un [facility] PROSTATIC SPECIFIC ANTIGEN 2022-10-12 10:48:00 Jonh Roman [facility] HEPATIC FUNCTION PANEL ([id number]) (ALB,T.PRO,BILI T,BU/BC,ALT,AST,ALK PHOS) 2022-10-12 10:48:[address] [facility] BASIC METABOLIC PANEL (NA, K, CL, CO2, GLUCOSE, BUN, CREATININE, CA) 2022-10-12 10:48:[address] [facility] CBC WITH DIFF 2022-10-12 10:48:00 Lb Bates [facility] HEPATIC FUNCTION PANEL ([id number]) (ALB,T.PRO,BILI T,BU/BC,ALT,AST,ALK PHOS) 2022-10-11 23:53:[address] [facility] BASIC METABOLIC PANEL (NA, K, CL, CO2, GLUCOSE, BUN, CREATININE, CA) 2022-10-11 23:53:[address] [facility] US GALL BLADDER 2022-10-11 22:28:[address] [facility] ABORH CONFIRMATION (LAB ONLY) 2022-10-11 21:24:[address] [facility] URINALYSIS 2022-10-11 21:23:00 Lb Bates [facility] HB ABO GROUPING 2022-10-11 20:41:[address] [facility] CBC WITH DIFF 2022-10-11 20:35:00 Lb Bates [facility] CT ANGIOGRAM ABDOMEN/PELVIS 2022-10-11 14:52:00 Aydin Matos [facility] HB ECG ROUTINE & RHYTHM STRIP 2022-10-11 13:48:04 Carlo [facility] LIPASE 2022-10-11 13:42:00 [facility] TROPONIN I 2022-10-11 13:42:00 [facility] COMP. METABOLIC PANEL ([id number]) 2022-10-11 13:42:00 Aydin Matos [facility] LIPID PANEL ([id number])(TOTAL CHOLESTEROL, TRIGLYCERIDES, HDL) 2022-10-11 13:42:00 Lb Bates [facility] CBC WITH DIFF 2022-10-11 13:42:00 Aydin Matos [facility] PROTHROMBIN TIME / INR 2022-10-11 13:42:00 Nicholas Matos [facility] ACTIVATED PARTIAL THRMPLAS TAE 2022-10-11 13:42:00 Aydin Matos [facility] N-TERMINAL PRO-BNP 2022-10-11 13:42:00 Aydin Matos [facility] URINE DRUG (IMMUNOASSAY) - COMPREHENSIVE DRUG SCREEN W/O REFLEX 2022-10-11 13:42:00 [facility] FOR [facility] TREATMENT 2022-10-11 12:24:48 Doctor Unassigned, [place] [facility] CT ABDOMEN PELVIS W CONTRAST 2022-10-09 06:30:25 Abraham Orantes [facility] LIPASE 2022-10-09 05:24:00 Abraham Orantes [facility] COMP. METABOLIC PANEL ([id number]) 2022-10-09 05:24:00 Abraham Orantes [facility] CBC WITH DIFF 2022-10-09 05:24:00 Abraham Orantes [facility] URINALYSIS 2022-10-09 05:24[facility]00 [facility] FOR [facility]AG[facility]IS AND TREATMENT 2022-10-09 03:56:57 Doctor Unassigned, [place] [facility] COMP. METABOLIC PANEL ([id number]) 2022-08-20 15:11:00 Trevor Taylor [facility] CBC WITH DIFF 2022-08-20 15:11:00 Trevor Taylor [facility] URINALYSIS 2022-08-20 15:11:00 Trevor Taylor [facility] CONSENT/REFUSAL FOR DIAGNOSIS AND TREATMENT 2022-08-20 14:32:58 Doctor Unassigned, [place] [facility] CT ABDOMEN PELVIS W CONTRAST 2022-06-09 13:12:35 Soham Clarke [facility] LIPASE 2022-06-09 12:48:00 Soham Clarke [facility] COMP. METABOLIC PANEL ([id number]) 2022-06-09 12:48:00 Soham Clarke [facility] CBC WITH DIFF 2022-06-09 12:48:00 [facility] 2022-06-09 12:48:00 Soham Clarke [facility] NOTICE OF PRIVACY PRACTICES 2022-06-09 11:47:39 Doctor Unassigned, [place] [facility] CONSENT/REFUSAL FOR DIAGNOSIS AND TREATMENT 2022-06-09 11:47:18 Doctor Unassigned, [place] [facility] PHOSPHORUS 2021-11-01 09:55:00 Darshan Jerrica [facility] MAGNESIUM 2021-11-01 09:55:00 Darshan [facility] BASIC METABOLIC PANEL (NA, K, CL, CO2, GLUCOSE, BUN, CREATININE, CA) 2021-11-01 09:55:00 [facility] 2021-11-01 09:55:00 Darshan [facility] PHOSPHORUS 2021-10-31 08:45:00 [facility] CREATINE KINASE 2021-10-31 08:45:00 Roxanne Swenson [facility] MAGNESIUM 2021-10-31 08:45:00 Emelia Gallego [facility] TROPONIN I 2021-10-31 08:45:00 Roxanne Swenson [facility] COMP. METABOLIC PANEL ([id number]) 2021-10-31 08:45:00 Roxanne Swenson [facility] CBC WITH DIFF 2021-10-31 08:45:00 Emelia Gallego [facility] PROTHROMBIN TIME / INR 2021-10-31 08:45:00 Ramos Swenson [facility] N-TERMINAL PRO-BNP 2021-10-31 08:45:00 Roxanne Swenson [facility] LACTIC ACID WHOLE BLOOD 2021-10-31 08:45:00 Erwin Swenson [facility] FECES CULTURE 2021-10-30 22:27:00 Monica Hernandez [facility] OCCULT (GUAIAC) BLOOD 2021-10-30 22:27:00 Juany Hernandez [facility] CLOSTRIDIUM DIFFICILE TOXIN 2021-10-30 22:27:00 Monica Hernandez [facility] COVID-19 (ID NOW RAPID TESTING) 2021-10-30 21:24:00 Madison Sepulveda [facility] LAB ONLY COVID INTERPRETATION 2021-10-30 21:24:00 Madison Sepulveda [facility] CT ABDOMEN PELVIS W CONTRAST 2021-10-30 20:44:09 Madison Sepulveda [facility] LIPASE 2021-10-30 20:25:00 Madison Sepulveda [facility] TROPONIN I 2021-10-30 20:25:00 Roxanne Swenson [facility] COMP. METABOLIC PANEL ([id number]) 2021-10-30 20:25:00 Madison Sepulveda [facility] CBC WITH DIFF 2021-10-30 20:25:00 Madison Sepulveda [facility] URINALYSIS 2021-10-30 20:25:00 Madison Sepulveda [facility] N-TERMINAL PRO-BNP 2021-10-30 20:25:00 Roxanne Swenson [facility] CONSENT/REFUSAL FOR DIAGNOSIS AND TREATMENT 2021-10-30 19:24:05 Doctor Unassigned, [place] [facility] CREATINE KINASE 2021-05-24 04:40:00 Felipe Ortega [facility] BASIC METABOLIC PANEL (NA, K, CL, CO2, GLUCOSE, BUN, CREATININE, CA) 2021-05-24 04:40:00 Felipe Ortega [facility] URINALYSIS 2021-05-24 02:14:00 Felipe Ortega [facility] CREATINE KINASE 2021-05-24 01:53:00 [facility] 2021-05-24 01:53:00 Felipe Ortega [facility] COMP. METABOLIC PANEL ([id number]) 2021-05-24 01:53:00 Felipe Ortega [facility] CBC WITH DIFF 2021-05-24 01:53:00 Felipe Ortega [facility] N-TERMINAL PRO-BNP 2021-05-24 01:53:00 Felipe Ortega [facility] ASSIGNMENT OF BENEFITS 2021-05-23 00:46:04 Docto r Unassigned, [place] [facility] CONSENT/REFUSAL FOR DIAGNOSIS AND TREATMENT 2021-05-22 23:31:57 Doctor Unassigned, [place] [facility] SARS-COV-2 COVID-19 VACCINE,0.3ML,IM (PFIZER) 2021-05-07 16:12:40 Doctor Unassigned, [place] [facility] RAPID STREP SCREEN FOR GROUP A 2021-05-02 00:07:00 Aydin Matos [facility] COVID-19 (ID NOW RAPID TESTING) 2021-05-02 00:07:00 Aydin aMtos [facility] CONSENT/REFUSAL FOR DIAGNOSIS AND TREATMENT 2021-05-01 23:56:07 Doctor Unassigned, [place] [facility] RAPID STREP SCREEN FOR GROUP A 2021-04-02 01:05:00 Nikhil Blanton [facility] COVID-19 (ID NOW RAPID TESTING) 2021-04-02 01:05:00 Nikhil Blanton [facility] NOTICE OF PRIVACY PRACTICES 2021-04-02 00:56:18 Doctor Unassigned, [place] [facility] CONSENT/REFUSAL FOR DIAGNOSIS AND TREATMENT 2021-04-02 00:49:05 Doctor Unassigned, [place] [facility] XR WRIST 3+ VW LEFT 2021-03-18 01:19:59 Destini Blanton [facility] URINALYSIS 2021-03-18 01:12:00 Nikhil Blanton [facility] CONSENT/REFUSAL FOR DIAGNOSIS AND TREATMENT 2021-03-18 00:56:01 Doctor Unassigned, [place] [facility] XR CHEST 1 VW 2020-11-15 03:48:28 Darnell Hsu [facility] CONSENT/REFUSAL FOR DIAGNOSIS AND TREATMENT 2020-11-15 03:11:27 Doctor Unassigned, [place] [facility] CT HEAD WO CONTRAST 2020-09-30 15:00:43 Jessica Siddiqui ra [facility] XR CHEST 1 VW 2020-09-30 14:37:13 Jessy Siddiqui U [facility] LIPASE 2020-09-30 14:25:00 Jessy Siddiqui Un [facility] TROPONIN I 2020-09-30 14:25:00 Jessy Siddiqui [facility] COMP. METABOLIC PANEL ([id number]) 2020-09-30 14:25:00 Jessy Siddiqui [facility] CBC WITH DIFF 2020-09-30 14:25:00 Jessy Siddiqui U [facility] N-TERMINAL PRO-BNP 2020-09-30 14:25:00 Solitario Siddiqui [facility] NOTICE OF PRIVACY PRACTICES 2020-09-30 13:57:13 Doctor Unassigned, [place] [facility] CONSENT/REFUSAL FOR DIAGNOSIS AND TREATMENT 2020-09-30 13:55:57 Doctor Unassigned, [place] [facility] EKG-12 LEAD 2020-07-02 03:20:42 Felipe Ortega [facility] LIPASE 2020-07-02 03:05:00 Abraham Orantes [facility] TROPONIN I 2020-07-02 03:05:00 Felipe Ortega [facility] COMP. METABOLIC PANEL ([id number]) 2020-07-02 03:05:00 Abraham Orantes [facility] CBC WITH DIFF 2020-07-02 03:05:00 Abraham Orantes [facility] NOTICE OF PRIVACY PRACTICES 2020-07-02 02:48:43 Doctor Unassigned, [place] [facility] CONSENT/REFUSAL FOR DIAGNOSIS AND TREATMENT 2020-07-02 02:46:14 Doctor Unassigned, [place] [facility] Plan of Care Planned Activity Planned Date Details Comments Source Goal Plan of Care Note [code = 82571-1] Goal Plan of Care Note [code = 70058-4] Goal Plan of Care Note [code = 32844-1] Goal Plan of Care Note [code = 94966-5] Goal Plan of Care Note [code = 01057-6] Goal Plan of Care Note [code = 90965-5] Goal Plan of Care Note [code = 89010-9] Goal Plan of Care Note [code = 72296-9] Goal Plan of Care Note [code = 66183-3] Goal Plan of Care Note [code = 83614-1] Goal Plan of Care Note [code = 70110-3] Goal Plan of Care Note [code = 84497-6] Goal Plan of Care Note [code = 41944-2] Goal Plan of Care Note [code = 27770-5] Goal Plan of Care Note [code = 25381-6] Encounters Start Date/Time End Date/Time Encounter Type Admission Type Attending [facility] Facility Care Department Encounter ID Source 2022-07-29 14:17:02 Outpatient Mayuri James [facility] [id number] [facility] 2022-07-11 08:20:03 Outpatient Mayuri James [facility] [id number] [facility] 2024-08-30 00:00:00 2024-08-30 00:00:00 Outpatient [facility] [id number] [facility] 09:30:00 2024-08-29 09:30:00 Outpatient OMARI RAZA [id number] Luz Maria [facility] 2024-08-05 08:30:00 2024-08-05 08:30:00 Outpatient ADRI TAYLOR [id number] Luz Maria marcell 2024-08-03 00:00:00 2024-08-03 00:00:00 Outpatient MD LUZ MARIA AN [id number] Luz Maria [facility] 2024-07-29 00:00:00 2024-07-29 00:00:00 Outpatient PREZAHAYDEN Genao LUZ MARIA HOLLIDAY [id number] Luz Maria [facility] 2024-07-28 00:00:00 2024-07-28 00:00:00 Outpatient PREZAHAYDEN Genao LUZ MARIA HOLLIDAY [id number] [facility] 2024-07-28 00:00:00 2024-07-28 00:00:00 Outpatient MACKENZIE LEANDRO LUZ MARIA HOLLIDAY [id number] Luz Maria [facility] 2024-07-20 08:45:00 2024-07-20 08:45:00 Outpatient PREZABirgit HAYDEN HOLLIDAY [id number] Luz [facility] 2024-07-07 00:00:00 2024-07-07 00:00:00 Outpatient PREZAS HAYDEN HOLLIDAY [id number] [facility] 2024-06-16 00:00:00 2024-06-16 00:00:00 Outpatient PREZAS, HAYDEN LUZ MARIA HOLLIDAY [id number] [facility] 2024-06-07 16:57:00 2024-06-07 20:05:00 Emergency X LUKE CLARKE JOSHUA [facility] [id number] [facility] 2024-06-07 16:57:00 2024-06-07 20:05:00 Emergency Luke Clarke [facility] 1.2.840.114 350.1.13.10 4.2.7.2.686 [id number] [facility] 2024-05-30 09:45:00 2024-05-30 09:45:00 Outpatient PREZABirgit, HAYDEN HOLLIDAY [id number] [facility] 2024-05-26 08:30:00 2024-05-26 08:30:00 Outpatient HARSHIL STYLES [id number] [facility] 2024-05-26 00:00:00 2024-05-26 00:00:00 Outpatient SIDADRI HEREDIA [id number] [facility] 2024-05-25 00:00:00 2024-05-25 00:00:00 Outpatient HAYDEN ORTIZ LUZ MARIA HOLLIDAY [id number] Luz Maria Seybold 2024-05-24 15:00:00 2024-05-24 15:00:00 Outpatient HAYDEN ORTIZ LUZ MARIA HOLLIDAY [id number] [facility] 2024-05-23 00:00:00 2024-05-23 00:00:00 Outpatient MD LUZ MARIA AN [id number] [facility] 2024-05-18 11:10:00 2024-05-18 11:10:00 Outpatient FOUZIA GUNDERSON [id number] [facility] 2024-05-12 00:00:00 2024-05-12 00:00:00 Outpatient LUZ MARIA HOLLIDAY [id number] Luz Maria Seybold 2024-05-09 00:00:00 2024-05-09 00:00:00 Outpatient HAYDEN ORTIZ LUZ MARIA HOLLIDAY [id number] [facility] 2024-05-05 00:00:00 2024-05-05 00:00:00 Outpatient DEEJAY, GIBRAN LUZ MARIA HOLLIDAY [id number] Luz Maria Seybold 2024-05-04 08:30:00 2024-05-04 08:30:00 Outpatient LUZ MARIA HOLLIDAY [id number] Luz Maria Seybold 2024-04-29 00:00:00 2024-04-29 00:00:00 Outpatient HAYDEN ORTIZ LUZ MARIA HOLLIDAY [id number] Luz Maria Seybold 2024-04-22 08:00:00 2024-04-22 08:00:00 Outpatient LUZ MARIA HOLLIDAY [id number] Luz Maria Seybold 2024-04-12 09:40:00 2024-04-12 09:40:00 Outpatient BROOK ALLEN [id number] Luz Maria Seybold 2024-04-11 08:00:00 2024-04-11 08:00:00 Outpatient LUZ MARIA HOLLIDAY [id number] Luz Maria Seybold 2024-04-11 00:00:00 2024-04-11 00:00:00 Outpatient GIBRAN MCADAMS LUZ MARIA HOLLIDAY [id number] [facility] 2024-04-08 16:30:00 2024-04-08 16:30:00 Outpatient LEANDRO MANN LUZ MARIA HOLLIDAY [id number] Luz Maria [facility] 2024-04-04 08:10:00 2024-04-04 08:10:00 Outpatient LAB90 LUZ MARIA HOLLIDAY [id number] [facility] 2024-04-02 08:39:00 2024-04-02 12:55:00 Emergency X Trevor TAYLOR K [facility] ERT [id number] [facility] 2024-04-02 08:39:00 2024-04-02 12:55:00 Emergency Trevor Taylor Tiffanie [facility] 1.2.840.114 350.1.13.10 4.2.7.2.686 [id number] [facility] 2024-04-02 00:00:00 2024-04-02 00:00:00 Outpatient YOUNG, ELVA LUZ MARIA HOLLIDAY [id number] [facility] 2024-03-30 09:00:00 2024-03-30 09:00:00 Outpatient LAB47 LUZ MARIA HOLLIDAY [id number] [facility] 2024-03-30 08:30:00 2024-03-30 08:30:00 Outpatient DEEJAYGIBRAN LUZ MARIA HOLLIDAY [id number] [facility] 2024-03-30 00:00:00 2024-03-30 00:00:00 Outpatient GIBRAN MCADAMS [id number] [facility] 2024-03-30 00:00:00 2024-03-30 00:00:00 Outpatient HAYDEN ORTIZ [id number] [facility] 2024-03-28 00:00:00 2024-03-28 00:00:00 Outpatient HAYDEN ORTIZ [id number] [facility] 2024-03-23 00:00:00 2024-03-23 00:00:00 Outpatient PREZAHAYDEN Genao [id number] [facility] 2024-02-29 00:00:00 2024-02-29 13:30:22 Letter (Out) Karl Ferguson [facility] 1.2.840.114 350.1.13.10 4.2.7.2.686 [id number] [facility] 2024-02-24 00:00:00 2024-02-24 00:00:00 Outpatient OUTSIDE REPORTED LUZ MARIA LUZ MARIA [id number] [facility] 2024-02-24 00:00:00 2024-02-24 00:00:00 Outpatient HAYDEN ORTIZ LUZ MARIA [id number] [facility] 2024-02-22 00:00:00 2024-02-22 14:50:01 Letter (Out) Elida Lewis [facility] 1..840.114 350.1.13.10 4.2.7.2.686 [id number] [facility] 2024-02-22 00:00:00 2024-02-22 00:00:00 Outpatient HAYDEN ORTIZ LUZ MARIA [id number] [facility] 2024-02-20 21:47:00 2024-02-20 23:54:00 Emergency X LETI RIVAS ERICCA [facility] ERT [id number] [facility] 2024-02-20 21:47:00 2024-02-20 23:54:00 Emergency Leti Rivas [facility] ..840.114 350.1.13.10 4.2.7.2.686 [id number] [facility] 2024-01-26 00:00:00 2024-01-26 00:00:00 Outpatient HAYDEN ORTIZ LUZ MARIA LUZ MARIA [id number] [facility] 2024-01-15 00:00:00 2024-01-15 00:00:00 Outpatient ANGIEZAHAYDEN Genao [id number] [facility] 2023-12-28 00:00:00 2023-12-28 00:00:00 Outpatient PREHAYDEN MILNER [id number] [facility] 2023-12-18 00:00:00 2023-12-18 00:00:00 Outpatient LUZ MARIA HOLLIDAY [id number] [facility] 2023-12-17 15:30:00 2023-12-17 15:30:00 Outpatient PREZAHAYDEN Genao [id number] [facility] 2023-12-11 00:00:00 2023-12-11 00:00:00 Outpatient HAYDEN ORTIZ [id number] [facility] 2023-12-09 20:14:00 2023-12-09 23:50:00 Emergency X ABRAHAM ORANTES [facility] ERT [id number] [facility] 2023-12-09 20:14:00 2023-12-09 23:50:00 Emergency Aman Orantesclemente S [facility] 1.2.840.114 350.1.13.10 4.2.7.2.686 [id number] [facility] 2023-11-24 00:00:00 2023-11-24 00:00:00 Outpatient HAYDEN ORTIZ LUZ MARIA [id number] [facility] 2023-11-18 00:00:00 2023-11-18 00:00:00 Letter (Out) Chavez Turner [facility] 1.2.840.114 350.1.13.10 4.2.7.2.686 [id number] [facility] 2023-11-10 14:00:00 2023-11-10 14:00:00 Outpatient HAYDEN ORTIZ LUZ MARIA [id number] [facility] 2023-11-09 00:00:00 2023-11-09 00:00:00 Outpatient HAYDEN ORTIZ LUZ MARIA [id number] [facility] 2023-11-06 00:00:00 2023-11-06 00:00:00 Outpatient HAYDEN ORTIZ LUZ MARIA [id number] [facility] 2023 11:30:00 2023 11:30:00 Outpatient CALLIE THORNE [facility]UL[facility]NA [facility] [id number] [facility] 2023-10-16 00:00:00 2023-10-16 00:00:00 Outpatient HAYDEN ORTIZ LUZ MARIA HOLLIDAY [id number] [facility] 2023-10-13 00:00:00 2023-10-13 00:00:00 Outpatient LUZ MARIA HOLLIDAY [id number] [facility] 2023-10-06 14:30:00 2023-10-06 14:30:00 Outpatient HAYDEN ORTIZ LUZ MARIA HOLLIDAY [id number] [facility] 2023-08-14 00:00:00 2023-08-14 00:00:00 Outpatient MERLYN WORTHINGTON [facility] [id number] [facility] 2023-08-13 00:00:00 2023-08-13 00:00:00 Patient Secure Msg Doctor Unassigned, [place] [facility] 1.2.840.114 350.1.13.10 4.2.7.2.686 [id number] [facility] 2023-08-11 16:15:00 2023-08-11 16:15:00 Outpatient ANABELADAN Topete LUZ MARIA HOLLIDAY [id number] [facility] 2023-08-03 20:26:00 2023-08-04 00:05:00 Emergency X ABRAHAM ORANTES [facility] ERT [id number] [facility] 2023-08-03 20:26:00 2023-08-04 00:05:00 Emergency Abraham Orantes [facility] 1.840.114 350.1.13.10 4.2.7.2.686 [id number] [facility] 2023-08-03 00:00:00 2023-08-03 00:00:00 Outpatient KIARA RICHARDSON LUZ MARIA HOLLIDAY [id number] Luz Mariajasbir Ng 2023-08-03 00:00:00 2023-08-03 00:00:00 Orders Only Doctor Unassigned, [place] [facility] 1.2840.114 350.1.13.10 4.2.7.2.686 [id number] [facility] 2023-07-25 09:58:00 2023-07-25 12:56:00 Emergency X Trevor TAYLOR [facility] ERT [id number] [facility] 2023-07-25 09:58:00 2023-07-25 12:56:00 Emergency Trevor Taylor [facility] 1.840.114 350.1.13.10 4.2.7.2.686 [id number] [facility] 2023-07-24 12:36:00 2023-07-24 17:49:00 Emergency X JOHNATHAN AVILA [facility] ERT [id number] [facility] 2023-07-24 12:36:00 2023-07-24 17:49:[address] [facility] 1.840.114 350.1.13.10 4.2.7.2.686 [id number] [facility] 2023-07-24 14:30:00 2023-07-24 14:30:00 Outpatient ADAN CHESTER [id number] Luz Maria mcfarooq 2023-07-24 00:00:00 2023-07-24 00:00:00 Telephone Merlyn Hidalgo [facility] 1.840.114 350.1.13.10 4.2.7.2.686 [id number] [facility] 2023-07-23 05:22:00 2023-07-23 10:02:00 Emergency EM Kristian Paul [id number] 66 [facility] 2023-07-22 00:00:00 2023-07-22 00:00:00 Telephone [facility] AT [facility] 1.2840.114 350.1.13.10 4.2.7.2.686 [id number] [facility] 2023-07-22 00:00:00 2023-07-22 00:00:00 Patient Secure Msg Doctor Unassigned, [place] [facility] 1..840.114 350.1.13.10 4.2.7.2.686 [id number] [facility] 2023-07-20 00:00:00 2023-07-20 00:00:00 Telephone [facility] AT [facility] 1.840.114 350.1.13.10 4.2.7.2.686 [id number] [facility] 2023-07-17 13:45:00 2023-07-17 13:45:00 Outpatient NANCY BRENNAN [id number] Luz Maria Ng 2023-07-11 20:53:00 2023-07-11 23:38:00 Emergency X STEPHIE HEWITT [facility] ERT [id number] [facility] 2023-07-11 20:53:00 2023-07-11 23:38:00 Emergency Stephie Hew[facility] 1..840.114 350.1.13.10 4.2.7.2.686 [id number] [facility] 2023-07-10 08:45:00 2023-07-10 12:03:37 Outpatient R ROCKYMERLYN [facility] [id number] [facility] 2023-07-10 08:45:00 2023-07-10 12:03:37 Office Visit Merlyn Hidalgo [facility] 1.2.840.114 350.1.13.10 4.2.7.2.686 [id number] [facility] 2023-07-10 00:00:00 2023-07-10 00:00:00 Orders Only Doctor Unassigned, [place] [facility] 1..840.114 350.1.13.10 4.2.7.2.686 [id number] [facility] 2023-07-08 09:15:00 2023-07-08 09:15:00 Outpatient KIARA RICHARDSON [id number] [facility] 2023-07-03 04:49:00 2023-07-03 09:47:00 [facility] [id number] [facility] 2023-07-03 04:49:00 2023-07-03 09:47:00 [facility] 1..840.114 350.1.13.10 4.2.7.2.686 [id number] [facility] 2023-07-01 22:56:00 2023-07-02 01:00:00 Emergency NIXON Robert Gleasonhan [facility] ER [id number] [facility] 2023-05-20 15:50:00 2023-05-20 15:50:00 Outpatient LAB56 LUZ MARIA HOLLIDAY [id number] [facility] 2023-05-20 15:15:00 2023-05-20 15:15:00 Outpatient KIARA RICHARDSON [id number] [facility] 2023-05-07 17:37:00 2023-05-07 23:23:00 Emergency X YOHANAMAGDY Edith MANFRED [facility] ERT [id number] [facility] 2023-05-07 17:37:00 2023-05-07 23:23:00 Emergency Triciamagdy sharma [facility] 1.2.840.114 350.1.13.10 4.2.7.2.686 [id number] [facility] 2023-05-01 21:39:00 2023-05-02 00:35:00 Emergency X AYDIN MATOS [facility] ERT [id number] [facility] 2023-05-01 21:39:00 2023-05-02 00:35:00 Emergency Aydin Matos [facility] 1.2.840.114 350.1.13.10 4.2.7.2.686 [id number] [facility] 2023-04-22 03:51:00 2023-04-22 13:11:00 Emergency X DON [facility] ERT [id number] [facility] 2023-04-22 03:51:00 2023-04-22 13:11:00 Emergency Abraham Orantes Jaymieminnie [facility] 1.2.840.114 350.1.13.10 4.2.7.2.686 [id number] [facility] 2023-04-16 07:09:00 2023-04-16 09:00:00 Emergency X ADELAIDE GOODWIN [facility] ERT [id number] [facility] 2023-04-16 07:09:00 2023-04-16 09:00:00 Emergency Adelaide Goodwin [facility] 1.2840.114 350.1.13.10 4.2.7.2.686 [id number] [facility] 2023-03-31 23:59:00 2023-04-01 03:24:00 Emergency X HEMALATHA MORA [facility] ERT [id number] [facility] 2023-03-31 23:59:00 2023-04-01 03:24:00 Emergency Hemalatha Mora [facility] 1.2.840.114 350.1.13.10 4.2.7.2.686 [id number] [facility] 2023-02-13 16:02:00 2023-02-13 17:25:00 Emergency X JESSICA GONZALES [facility] ERT [id number] [facility] 2023-02-13 16:02:00 2023-02-13 17:25:00 Emergency Jessica Gonzales [facility] 1.2.840.114 350.1.13.10 4.2.7.2.686 [id number] [facility] 2023-01-05 00:00:00 2023-01-05 00:00:00 Orders Only Doctor Unassigned, [place] [facility] 1.2840.114 350.1.13.10 4.2.7.2.686 [id number] [facility] 2022-12-29 17:25:40 2022-12-29 17:25:40 Outpatient [facility] [id number] Dewey Ponce 2022-12-09 00:01:00 2022-12-09 01:39:00 Emergency X SOAHM CLARKE [facility] ERT [id number] [facility] 2022-12-09 00:01:00 2022-12-09 01:39:00 Emergency Soham Clarke [facility] 1.2.840.114 350.1.13.10 4.2.7.2.686 [id number] [facility] 2022-11-24 23:44:00 2022-11-25 02:56:00 Emergency X AYDIN MATOS [facility] ERT [id number] [facility] 2022-11-24 23:44:00 2022-11-25 02:56:00 Emergency Lion Nascimento [facility] 1.2.840.114 350.1.13.10 4.2.7.2.686 [id number] [facility] 2022-10-25 00:00:00 2022-10-25 00:00:00 Patient Secure Msg Doctor Unassigned, [place] [facility] 1.2.840.114 350.1.13.10 4.2.7.2.686 [id number] [facility] 2022-10-23 00:00:00 2022-10-23 00:00:00 Orders Only Doctor Unassigned, [place] [facility] 1.2.840.114 350.1.13.10 4.2.7.2.686 [id number] [facility] 2022-10-11 06:41:00 2022-10-12 17:56:00 Outpatient Josr DAVIDMARK Sharma [facility] MARTI [id number] [facility] 2022-10-11 06:41:00 2022-10-12 17:56:00 Emergency Aydin Matos Norman M [facility] 1.2.840.114 350.1.13.10 4.2.7.2.686 [id number] [facility] 2022-10-08 22:15:00 2022-10-09 01:39:00 Emergency X YOHANACHANDRAKANTRUDY BAKERMAGDIEL [facility] ERT [id number] [facility] 2022-10-08 22:15:00 2022-10-09 01:39:00 Emergency YohanaAbraham umana [facility] 1.2.840.114 350.1.13.10 4.2.7.2.686 [id number] [facility] 2022-10-08 00:00:00 2022-10-08 00:00:00 Orders Only Doctor Unassigned, [place] [facility] 1.2.840.114 350.1.13.10 4.2.7.2.686 [id number] [facility] 2022-08-20 08:42:00 2022-08-20 12:19:00 Emergency X MADDIE, K [facility] ERT [id number] [facility] 2022-08-20 08:42:00 2022-08-20 12:19:00 Emergency Trevor Taylor Tiffanie [facility] 1.2.840.114 350.1.13.10 4.2.7.2.686 [id number] [facility] 2022-07-11 00:00:00 2022-07-11 00:00:00 OFFICE VISIT NEW PT LEVEL 3 STLMLC STLC [id number] [facility] 2022-07-09 10:07:22 2022-07-09 10:07:22 Outpatient [facility] [id number] 1026 Dewey Tripathi Kris 2022-07-09 00:00:00 2022-07-09 00:00:00 Outpatient Visit [id number] 2022-06-09 06:57:00 2022-06-09 10:27:00 Emergency X SOHAM CLARKE [facility] ERT [id number] [facility] 2022-06-09 06:57:00 2022-06-09 10:27:00 Emergency Soham Clarke [facility] 1.2.840.114 350.1.13.10 4.2.7.2.686 [id number] [facility] 2022-06-09 00:00:00 2022-06-09 00:00:00 Orders Only Doctor Unassigned, [place] [facility] 1.2840.114 350.1.13.10 4.2.7.2.686 [id number] [facility] 2021-11-04 00:00:00 2021-11-04 00:00:00 Transition of Care Ellen Carroll 1.2840.114 350.1.13.10 4.2.7.2.686 [id number] [facility] 2021-10-30 13:39:00 2021-11-01 13:45:00 Inpatient X EMELIA GALLEGO [facility] MARTI [id number] [facility] 2021-10-30 13:39:00 2021-11-01 13:45:00 Hospital Encounter Madison Sepulveda David [facility] 1.2840.114 350.1.13.10 4.2.7.2.686 [id number] [facility] 2021-10-30 00:00:00 2021-10-30 00:00:00 Orders Only Doctor Unassigned, [place] [facility] 1.2840.114 350.1.13.10 4.2.7.2.686 [id number] [facility] 2021-05-23 20:42:00 2021-05-24 01:42:00 Emergency Felipe Ortega [facility] 1.2840.114 350.1.13.10 4.2.7.2.686 [id number] [facility] 2021-05-23 20:42:00 2021-05-23 20:42:00 Emergency X FELIPE ORTEGA [facility] ERT [id number] [facility] 2021-05-22 18:37:00 2021-05-22 21:40:00 Emergency Gabriella Zarate [facility] 1.2840.114 350.1.13.10 4.2.7.2.686 [id number] [facility] 2021-05-22 18:31:00 2021-05-22 18:31:00 Emergency X [facility] ERT [id number] [facility] 2021-05-07 11:11:35 2021-05-07 11:11:42 Imm/Inj Visit Nurse, Malika Pogay Immunizatio David Godinez [facility] Professio [facility] 1.2840.114 350.1.13.10 4.2.7.2.686 [id number] [facility] 2021-05-01 19:09:00 2021-05-01 20:46:00 [facility] 1.2840.114 350.1.13.10 4.2.7.2.686 [id number] [facility] 2021-05-01 18:53:00 2021-05-01 18:53:00 Emergency X [facility] ERT [id number] [facility] 2021-04-01 20:06:00 2021-04-01 21:56:00 Emergency [place] [facility] 1.2840.114 350.1.13.10 4.2.7.2.686 [id number] [facility] 2021-04-01 20:06:00 2021-04-01 21:56:00 Emergency [place], [facility] 1.2840.114 350.1.13.10 4.2.7.2.686 [id number] 2021-04-01 20:06:00 2021-04-01 20:06:00 Emergency X BLANTON, NIKHIL [facility] ERT [id number] [facility] 2021-03-17 20:09:00 2021-03-17 22:19:00 Emergency Blanton, Nikhil [facility] 1.2.840.114 350.1.13.10 4.2.7.2.686 [id number] [facility] 2021-03-17 20:09:00 2021-03-17 22:19:00 Emergency Nikhil Blanton [facility] 1.2.840.114 350.1.13.10 4.2.7.2.686 [id number] 2021-03-17 19:56:00 2021-03-17 19:56:00 Emergency X [facility] ERT [id number] [facility] 2020-11-15 00:00:00 2020-11-15 00:00:00 Letter (Out) Mirna Mar [facility] 1.2.840.114 350.1.13.10 4.2.7.2.686 [id number] [facility] 2020-11-15 00:00:00 2020-11-15 00:00:00 Telephone Pcp, Patient Does Not Have A [facility] 1.2.840.114 350.1.13.10 4.2.7.2.686 [id number] [facility] 2020-11-15 00:00:00 2020-11-15 00:00:00 Telephone Pcp, Patient Does Not Have A [facility] 1.2.840.114 350.1.13.10 4.2.7.2.686 [id number] 2020-11-15 00:00:00 2020-11-15 00:00:00 [facility] (Out[facility] 1.2.840.114 350.1.13.10 4.2.7.2.686 [id number] 2020-11-14 21:29:00 2020-11-14 22:55:00 Emergency Darnell Hsu [facility] 1.2.840.114 350.1.13.10 4.2.7.2.686 [id number] [facility] 2020-11-14 21:29:00 2020-11-14 22:55:00 Emergency X DARNELL HSU [facility] ERT [id number] [facility] 2020-11-14 21:29:00 2020-11-14 22:55:00 Emergency Darnell Hsu [facility] 1.2.840.114 350.1.13.10 4.2.7.2.686 [id number] 2020-09-30 08:03:00 2020-09-30 10:45:00 Emergency Jessy Siddiqui [facility] 1.2.840.114 350.1.13.10 4.2.7.2.686 [id number] 084 [id number] [facility] 2020-09-30 08:03:00 2020-09-30 10:45:00 Emergency Jessy Siddiqui [facility] 1.2.840.114 350.1.13.10 4.2.7.2.686 [id number] 2020-09-30 07:58:00 2020-09-30 07:58:00 Emergency X [facility] ERT [id number] [facility] 2020-09-30 00:00:00 2020-09-30 00:00:00 Orders Only Doctor Unassigned, [place] [facility] 1.2.840.114 350.1.13.10 4.2.7.2.686 [id number] [facility] 2020-09-30 00:00:00 2020-09-30 00:00:00 Orders Only Doctor Unassigned, [place] [facility] 1.2.840.114 350.1.13.10 4.2.7.2.686 [id number] 009 [id number] 2020-07-01 21:58:00 2020-07-01 23:54:00 Emergency Felipe Ortega [facility] 1.2.840.114 350.1.13.10 4.2.7.2.686 [id number] 084 [id number] [facility] 2020-07-01 21:58:00 2020-07-01 23:54:00 Emergency Felipe Ortega [facility] 1.2.840.114 350.1.13.10 4.2.7.2.686 [id number] [id number] 2020-07-01 21:58:00 2020-07-01 21:58:00 Emergency X FELIPE ORTEGA [facility] ERT [id number] [facility] Results Test Description Test Time Test Comments Results Result Co mments Source [facility] [id number] 23:38:46* Test Item Value Reference Range Interpretation Comme nts TROPONIN I (test code = 4773426090) 0.004 ng/mL <=0.034 KRYSTLE (test code = [...] of biotin. Lab Interpretation (test code = 85907-1) [facility] 2 [id number] 23:34:49Exam: Chest (2 Views), 06/07/2024 5:00 PM. Ordering Physician: LUKE CLARKE. History: sob . Technique: Two views of the chest. Comparison: Chest radiograph 07/11/2023. Findings: No focal consolidation. No pneumothorax or effusion. Normal size of thecardiac silhouette. No acute osseous finding.[facility] HospitalD-[id number] 23:30:44* Test Item Value Reference Range Interpretation Comments D-DIMER (test code = 4697555184) 0.22 See_Comment [Automated message] The system which [...] a diagnosis. Lab Interpretation (test code = 75450-2) Normal [facility]. METABOLIC PANEL (97383)2024-06-07 23:28:22* Test Item Value Reference Range Interpretation Comme nts NA (test code = 3661232645) 136 mmol/L 135-145 K (test code = 8188332807) 4.1 mmol/L 3.5-5.0 CL (test code = 2574681949) 103 mmol/L 98-108 CO2 TOTAL (test code = 1236637977) 25 mmol/L 23-31 AGAP (test code = 2096159083) 8 2-16 BUN (test code = 9935240421) 19 mg/dL 7-23 GLUCOSE (test code = 6634539464) 89 mg/dL 70-110 CREATININE (test code = 2160-0) 0.99 mg/dL 0.60-1.25 TOTAL BILI (test code = 9648620677) 1.1 mg/dL 0.1-1.1 CALCIUM (test code = 4102471394) 9.3 mg/dL 8.6-10.6 T PROTEIN (test code = 3655962611) 8.8 g/dL 6.3-8.2 H ALBUMIN (test code = 6993846814) 4.8 g/dL 3.5-5.0 ALK PHOS (test code = 0775455401) 51 U/L 34-122 ALTv (test code = 1742-6) 27 U/L 5-50 AST(SGOT) (test code = 5728826306) 35 U/L 13-40 eGFR (test code = 64418-8) 92.2 mL/min/1.73m2 CKD-EPI eGFR (2020). Assuming creatinine has been stable day-to-day for at least three months, the eGFR indicates Category G1 (>= 90 mL/min/1.73 m2) Lab Interpretation (test code = 91423-7) Abnormal [facility] HospitalMagnesium2024-09-24 23:28:02* Test Item Value Reference Range Interpretation Comme nts MAGNESIUM (test code = 2531080304) 1.8 mg/dL 1.7-2.4 Lab Interpretation (test cod e = 03153-5) Normal [facility]2024-09-24 23:28:02* Test Item Value Reference Range Interpretation Comme nts LIPASE (test code = 7512678125) 67 U/L 0-220 Lab Interpretation (test cod e = 66514-2) Normal [facility] HospitalCreatine [id number] 23:27:41* Test Item Value Reference Range Interpretation Comme nts CK (test code = 9394493018) 475 U/L 33-194 H Lab Interpretation (test cod e = 58595-1) Abnormal [facility] WITH [id number] 23:13:43* Test Item Value Reference Range Interpretation [...] 34.2 g/dL 31.2-35.0 RDW-SD (test code = 61309-3) 42.2 fL 38.5-51.6 RDW-CV (test code = 788-0) 13.0 % 12.1-15.4 PLT (test code = 777-3) 219 150-328 MPV (test code = 47243-7) 9.9 fL 9.8-13.0 NRBC/100 WBC (test code = 9085077752) 0.0 0.0-10.0 NRBC x10^3 (test code = 8664507016) See_Comment [Automated messa ge] The system which generated this result transmitted reference range: 10*3/?L. The reference range was not used to interpret this result as normal/abnormal. GRAN MAT (NEUT) % (test code = 770-8) 77.8 % IMM GRAN % (test code = 3779426812) 0.30 % LYMPH % (test code = 736-9) 15.6 % MONO % (test code = 5905-5) 5.7 % EOS % (test code = 713-8) 0.5 % BASO % (test code = 706-2) 0.1 % GRAN MAT x10^3(ANC) (test code = 3339392248) 5.87 10*3/uL 1.99-6.95 IMM GRAN x10^3 (test code = 4035488609) 0.00-0.06 LYMPH x10^3 (test code = 731-0) 1.18 10*3/uL 1.09-3.23 MONO x10^3 (test code = 742-7) 0.43 10*3/uL 0.36-1.02 EOS x10^3 (test code = 711-2) 0.04 10*3/uL 0.06-0.53 L BASO x10^3 (test code = 704-7) 0.01-0.09 Lab Interpretation (test code = 63435-1) Abnormal [facility] [id number] 15:49:54* Test Item Value Reference Range Interpretation Comme nts TROPONIN I (test code = 8056196735) <=0.034 KRYSTLE (test code = KRYSTLE) Reference [...] of biotin. Lab Interpretation (test code = 84735-1) Normal [facility] HospitalCT [facility] PEL[facility] W [id number] 15:06:25CT ABDOMEN PELVIS W CONTRAST HISTORY: 53 [...] noted.[facility]. Metabolic Panel (22588)2024-04-02 14:58:53* Test Item Value Reference Range Interpretation Comme nts NA (test code = 8390018567) 138 mmol/L 135-145 K (test code = 0092290864) 4.6 mmol/L 3.5-5.0 CL (test code = 3572283647) 105 mmol/L 98-108 CO2 TOTAL (test code = 4026447559) 28 mmol/L 23-31 AGAP (test code = 5934283110) 5 2-16 BUN (test code = 2643256424) 19 mg/dL 7-23 GLUCOSE (test code = 1716396267) 117 mg/dL 70-110 H CREATININE (test code = 2160-0) 0.91 mg/dL 0.60-1.25 TOTAL BILI (test code = 8005518239) 0.8 mg/dL 0.1-1.1 CALCIUM (test code = 0607731628) 9.2 mg/dL 8.6-10.6 T PROTEIN (test code = 7634109427) 8.4 g/dL 6.3-8.2 H ALBUMIN (test code = 5269257126) 4.4 g/dL 3.5-5.0 ALK PHOS (test code = 5140603875) 58 U/L 34-122 ALTv (test code = 1742-6) 28 U/L 5-50 AST(SGOT) (test code = 0726753916) 33 U/L 13-40 eGFR (test code = 00952-4) 102.0 mL/min/1.73m2 CKD-EPI eGFR (2020). Assuming creatinine has been stable day-to-day for at least three months, the eGFR indicates Category G1 (>= 90 mL/min/1.73 m2) Lab Interpretation (test code = 43871-7) [facility] Branch[facility] (63172)(Total Cholesterol, Triglycerides, HDL)2024-04-02 14:58:53* Test Item Value Reference Range Interpretation Comme nts CHOL (test code = 9681376775) 190 mg/dL 120-200 HDL (test code = 7162747755) 37 mg/dL >=40 L HDLC RATIO (test code = 2710046194) 5.1 <=5.0 H TRIG (test code = 9615280658) 107 mg/dL 30-170 LDL CHOL (test code = 64161-8) 132 mg/dL <=160 VLDL (test code = 5312887132) 21 mg/dL 5-60 Lab Interpretation (test cod e = 11678-8) Abnormal [facility] Hospital[facility]esium2024-07-20 14:58:32* Test Item Value Reference Range Interpretation Comme nts MAGNESIUM (test code = 5130029804) 1.9 mg/dL 1.7-2.4 Lab Interpretation (test cod e = 32821-4) Normal [facility] HospitalLipase2024-07-20 14:58:12* Test Item Value Reference Range Interpretation Comme nts LIPASE (test code = 8495122037) 384 U/L 0-220 H Lab Interpretation (test cod e = 94869-2) Abnormal [facility] HospitalCbc with [id number] 14:40:51* Test Item Value Reference Range Interpretation [...] 35.0 g/dL 31.2-35.0 RDW-SD (test code = 18048-3) 41.7 fL 38.5-51.6 RDW-CV (test code = 788-0) 13.3 % 12.1-15.4 PLT (test code = 777-3) 216 150-328 MPV (test code = 08595-4) 9.9 fL 9.8-13.0 NRBC/100 WBC (test code = 5592028453) 0.0 0.0-10.0 NRBC x10^3 (test code = 5243471938) See_Comment [Automated me ssage] The system which generated this result transmitted reference range: 10*3/?L. The reference range was not used to interpret this result as normal/abnormal. GRAN MAT (NEUT) % (test code = 770-8) 44.1 % IMM GRAN % (test code = 5809144887) 0.40 % LYMPH % (test code = 736-9) 45.4 % MONO % (test code = 5905-5) 8.4 % EOS % (test code = 713-8) 1.1 % BASO % (test code = 706-2) 0.6 % GRAN MAT x10^3(ANC) (test code = 0376326663) 2.31 10*3/uL 1.99-6.95 IMM GRAN x10^3 (test code = 0565993615) 0.00-0.06 LYMPH x10^3 (test code = 731-0) 2.38 10*3/uL 1.09-3.23 MONO x10^3 (test code = 742-7) 0.44 10*3/uL 0.36-1.02 EOS x10^3 (test code = 711-2) 0.06 10*3/uL 0.06-0.53 BASO x10^3 (test code = 704-7) 0.03 10*3/uL 0.01-0.09 [facility] HospitalCOMP. METABOLIC PANEL (54031)2024-02-21 03:54:20* Test Item Value Reference Range Interpretation Comme nts NA (test code = 8777089869) 137 mmol/L 135-145 K (test code = 9041941526) 3.9 mmol/L 3.5-5.0 CL (test code = 6394153120) 106 mmol/L 98-108 CO2 TOTAL (test code = 4257089559) 26 mmol/L 23-31 AGAP (test code = 3137265736) 5 2-16 BUN (test code = 9050358995) 14 mg/dL 7-23 GLUCOSE (test code = 3154031698) 128 mg/dL 70-110 H CREATININE (test code = 2160-0) 0.98 mg/dL 0.60-1.25 TOTAL BILI (test code = 9581568943) 0.5 mg/dL 0.1-1.1 CALCIUM (test code = 1683732283) 8.6 mg/dL 8.6-10.6 T PROTEIN (test code = 7235156504) 7.4 g/dL 6.3-8.2 ALBUMIN (test code = 2240299686) 4.1 g/dL 3.5-5.0 ALK PHOS (test code = 4138620912) 66 U/L 34-122 ALTv (test code = 1742-6) 25 U/L 5-50 AST(SGOT) (test code = 3555568047) 39 U/L 13-40 eGFR (test code = 05320-3) 93.4 mL/min/1.73m2 CKD-EPI eGFR (2020). Assuming creatinine has been stable day-to-day for at least three months, the eGFR indicates Category G1 (>= 90 mL/min/1.73 m2) Lab Interpretation (test code = 99070-0) Abnormal [facility] HospitalLIPASE2024-06-09 03:53:40* Test Item Value Reference Range Interpretation Comme nts LIPASE (test code = 0190185784) 117 U/L 0-220 Lab Interpretation (test cod e = 94186-0) Normal [facility] HospitalCBC WITH [id number] 03:39:58* Test Item Value Reference Range Interpretation [...] 34.8 g/dL 31.2-35.0 RDW-SD (test code = 24976-6) 40.3 fL 38.5-51.6 RDW-CV (test code = 788-0) 12.7 % 12.1-15.4 PLT (test code = 777-3) 216 150-328 MPV (test code = 65254-3) 9.6 fL 9.8-13.0 L NRBC/100 WBC (test code = 4286920255) 0.0 0.0-10.0 NRBC x10^3 (test code = 9780470891) See_Comment [Automated messa ge] The system which generated this result transmitted reference range: 10*3/?L. The reference range was not used to interpret this result as normal/abnormal. GRAN MAT (NEUT) % (test code = 770-8) 32.8 % IMM GRAN % (test code = 3986277256) 0.20 % LYMPH % (test code = 736-9) 58.5 % MONO % (test code = 5905-5) 6.6 % EOS % (test code = 713-8) 1.4 % BASO % (test code = 706-2) 0.5 % GRAN MAT x10^3(ANC) (test code = 9184727856) 1.94 10*3/uL 1.99-6.95 L IMM GRAN x10^3 (test code = 5503963253) 0.00-0.06 LYMPH x10^3 (test code = 731-0) 3.46 10*3/uL 1.09-3.23 H MONO x10^3 (test code = 742-7) 0.39 10*3/uL 0.36-1.02 EOS x10^3 (test code = 711-2) 0.08 10*3/uL 0.06-0.53 BASO x10^3 (test code = 704-7) 0.03 10*3/uL 0.01-0.09 Lab Interpretation (test code = 66560-7) Abnormal [facility] with [id number] 03:17:11* Test Item Value Reference Range Interpretation [...] 34.8 g/dL 31.2-35.0 RDW-SD (test code = 04855-1) 39.9 fL 38.5-51.6 RDW-CV (test code = 788-0) 12.7 % 12.1-15.4 PLT (test code = 777-3) 240 150-328 MPV (test code = 12544-1) 9.8 fL 9.8-13.0 NRBC/100 WBC (test code = 5581459971) 0.0 0.0-10.0 NRBC x10^3 (test code = 2253427414) See_Comment [Automated messa ge] The system which generated this result transmitted reference range: 10*3/?L. The reference range was not used to interpret this result as normal/abnormal. GRAN MAT (NEUT) % (test code = 770-8) 31.3 % IMM GRAN % (test code = 9647431606) 0.00 % LYMPH % (test code = 736-9) 57.3 % MONO % (test code = 5905-5) 9.3 % EOS % (test code = 713-8) 1.6 % BASO % (test code = 706-2) 0.5 % GRAN MAT x10^3(ANC) (test code = 8951910233) 1.94 10*3/uL 1.99-6.95 L IMM GRAN x10^3 (test code = 5413396476) 0.00-0.06 LYMPH x10^3 (test code = 731-0) 3.56 10*3/uL 1.09-3.23 H MONO x10^3 (test code = 742-7) 0.58 10*3/uL 0.36-1.02 EOS x10^3 (test code = 711-2) 0.10 10*3/uL 0.06-0.53 BASO x10^3 (test code = 704-7) 0.03 10*3/uL 0.01-0.09 Lab Interpretation (test code = 39606-4) Abnormal [facility]p. Metabolic Panel (65601)2023-12-10 03:13:49* Test Item Value Reference Range Interpretation Comme nts NA (test code = 6686768753) 141 mmol/L 135-145 K (test code = 7306804848) 4.3 mmol/L 3.5-5.0 CL (test code = 9309737685) 107 mmol/L 98-108 CO2 TOTAL (test code = 0210177740) 26 mmol/L 23-31 AGAP (test code = 9582290091) 8 2-16 BUN (test code = 9004120743) 20 mg/dL 7-23 GLUCOSE (test code = 1689412572) 123 mg/dL 70-110 H CREATININE (test code = 2160-0) 0.95 mg/dL 0.60-1.25 TOTAL BILI (test code = 0492039778) 0.8 mg/dL 0.1-1.1 CALCIUM (test code = 4489444589) 9.0 mg/dL 8.6-10.6 T PROTEIN (test code = 8973283031) 8.4 g/dL 6.3-8.2 H ALBUMIN (test code = 8980475207) 4.3 g/dL 3.5-5.0 ALK PHOS (test code = 7149505225) 58 U/L 34-122 ALTv (test code = 1742-6) 33 U/L 5-50 AST(SGOT) (test code = 6088233898) 52 U/L 13-40 H eGFR (test code = 20736-7) 96.9 mL/min/1.73m2 CKD-EPI eGFR (2020). Assuming creatinine has been stable day-to-day for at least three months, the eGFR indicates Category G1 (>= 90 mL/min/1.73 m2) Lab Interpretation (test code = 24185-0) Abnormal [facility] [id number] 03:12:08CT ABDOMEN PELVIS W CONTRAST HISTORY: 53 [...] TISSUES: No suspicious lytic or sclerotic bony lesions.[facility] BASIC METABOLIC PANEL (NA, K, CL, CO2, GLUCOSE, BUN, CREATININE, CA)2023-08-04 03:27:21* Test Item Value Reference Range Interpretation Comme nts NA (test code = 3679952523) 140 mmol/L 135-145 K (test code = 4411606014) 3.9 mmol/L 3.5-5.0 CL (test code = 7585263028) 104 mmol/L 98-108 CO2 TOTAL (test code = 6545227784) 28 mmol/L 23-31 AGAP (test code = 0895802282) 8 2-16 BUN (test code = 0893359836) 15 mg/dL 7-23 GLUCOSE (test code = 8501537955) 155 mg/dL 70-110 H CREATININE (test code = 7363478997) 1.37 mg/dL 0.60-1.25 H CALCIUM (test code = 8803959002) 9.5 mg/dL 8.6-10.6 eGFR (test code = 03616-2) 62.8 mL/min/1.73m2 CKD-EPI eGFR (2020). Assuming creatinine has been stable day-to-day for at least three months, the eGFR indicates Category G2 (60 - 89 mL/min/1.73 m2) Lab Interpretation (test code = 44182-6) Abnormal [facility] WITH [id number] 03:12:39* Test Item Value Reference Range Interpretation [...] g/dL 31.2-35.0 H RDW-SD (test code = 10643-1) 38.1 fL 38.5-51.6 L RDW-CV (test code = 788-0) 12.3 % 12.1-15.4 PLT (test code = 777-3) 238 See_Comment [Automated messa ge] The system which generated this result transmitted reference range: 150 - 328 10*3/?L. The reference range was not used to interpret this result as normal/abnormal. MPV (test code = 98235-9) 9.8 fL 9.8-13.0 NRBC/100 WBC (test code = 7259514789) 0.0 See_Comment [Automated Freta.lá ssage] The system which generated this result transmitted reference range: 0.0 - 10.0 /100 WBCs. The reference range was not used to interpret this result as normal/abnormal. NRBC x10^3 (test code = 3900303907) See_Comment [Automated messa ge] The system which generated this result transmitted reference range: 10*3/?L. The reference range was not used to interpret this result as normal/abnormal. GRAN MAT (NEUT) % (test code = 770-8) 37.8 % IMM GRAN % (test code = 5241889194) 0.30 % LYMPH % (test code = 736-9) 52.7 % MONO % (test code = 5905-5) 7.7 % EOS % (test code = 713-8) 1.1 % BASO % (test code = 706-2) 0.4 % GRAN MAT x10^3(ANC) (test code = 3129776693) 2.63 10*3/uL 1.99-6.95 IMM GRAN x10^3 (test code = 2177053480) 0.00-0.06 LYMPH x10^3 (test code = 731-0) 3.68 10*3/uL 1.09-3.23 H MONO x10^3 (test code = 742-7) 0.54 10*3/uL 0.36-1.02 EOS x10^3 (test code = 711-2) 0.08 10*3/uL 0.06-0.53 BASO x10^3 (test code = 704-7) 0.03 10*3/uL 0.01-0.09 Lab Interpretation (test code = 89772-2) Abnormal [facility] [id number] 17:24:34* Test Item Value Reference Range Interpretation Comme nts TROPONIN I (test code = 9797062508) 0.018 ng/mL <=0.034 RKYSTLE (test code = KRYSTLE) Reference (Normal) Range [...] of biotin. Lab Interpretation (test code = 61213-7) Normal [facility]UM2023-11-11 17:13:15* Test Item Value Reference Range Interpretation Comme nts MAGNESIUM (test code = 8979693477) 1.9 mg/dL 1.7-2.4 Lab Interpretation (test cod e = 45381-0) Normal [facility]. METABOLIC PANEL (74004)2023-07-25 17:12:55* Test Item Value Reference Range Interpretation Comme nts NA (test code = 8102343016) 141 mmol/L 135-145 K (test code = 3968023473) 3.8 mmol/L 3.5-5.0 CL (test code = 8611472853) 106 mmol/L 98-108 CO2 TOTAL (test code = 5752524764) 27 mmol/L 23-31 AGAP (test code = 3457664971) 8 2-16 BUN (test code = 2014788361) 14 mg/dL 7-23 GLUCOSE (test code = 3748631464) 124 mg/dL 70-110 H CREATININE (test code = 6069548647) 0.93 mg/dL 0.60-1.25 TOTAL BILI (test code = 7751289256) 0.8 mg/dL 0.1-1.1 CALCIUM (test code = 8981824536) 9.3 mg/dL 8.6-10.6 T PROTEIN (test code = 4921003715) 8.2 g/dL 6.3-8.2 ALBUMIN (test code = 5407506655) 4.4 g/dL 3.5-5.0 ALK PHOS (test code = 3146329683) 49 U/L 34-122 ALTv (test code = 1742-6) 20 U/L 5-50 AST(SGOT) (test code = 0945495572) 28 U/L 13-40 eGFR (test code = 25007-0) 100.0 mL/min/1.73m2 CKD-EPI eGFR (2020). Assuming creatinine has been stable day-to-day for at least three months, the eGFR indicates Category G1 (>= 90 mL/min/1.73 m2) Lab Interpretation (test code = 99560-4) Abnormal [facility]2023-11-11 17:12:35* Test Item Value Reference Range Interpretation Comme nts LIPASE (test code = 3555392185) 109 U/L 0-220 Lab Interpretation (test cod e = 03981-3) Normal [facility] WITH [id number] 16:59:59* Test Item Value Reference Range Interpretation [...] g/dL 31.2-35.0 H RDW-SD (test code = 75559-4) 39.2 fL 38.5-51.6 RDW-CV (test code = 788-0) 12.5 % 12.1-15.4 PLT (test code = 777-3) 207 See_Comment [Automated messa ge] The system which generated this result transmitted reference range: 150 - 328 10*3/?L. The reference range was not used to interpret this result as normal/abnormal. MPV (test code = 38165-9) 10.0 fL 9.8-13.0 NRBC/100 WBC (test code = 8540567449) 0.0 See_Comment [Automated Freta.lá ssage] The system which generated this result transmitted reference range: 0.0 - 10.0 /100 WBCs. The reference range was not used to interpret this result as normal/abnormal. NRBC x10^3 (test code = 5584189242) See_Comment [Automated messa ge] The system which generated this result transmitted reference range: 10*3/?L. The reference range was not used to interpret this result as normal/abnormal. GRAN MAT (NEUT) % (test code = 770-8) 45.8 % IMM GRAN % (test code = 9894187400) 0.20 % LYMPH % (test code = 736-9) 42.9 % MONO % (test code = 5905-5) 9.9 % EOS % (test code = 713-8) 0.8 % BASO % (test code = 706-2) 0.4 % GRAN MAT x10^3(ANC) (test code = 9592004232) 2.37 10*3/uL 1.99-6.95 IMM GRAN x10^3 (test code = 6290698378) 0.00-0.06 LYMPH x10^3 (test code = 731-0) 2.22 10*3/uL 1.09-3.23 MONO x10^3 (test code = 742-7) 0.51 10*3/uL 0.36-1.02 EOS x10^3 (test code = 711-2) 0.04 10*3/uL 0.06-0.53 L BASO x10^3 (test code = 704-7) 0.01-0.09 Lab Interpretation (test code = 93404-2) Abnormal [facility] HospitalLIPID PANEL (41109)(TOTAL CHOLESTEROL, TRIGLYCERIDES, HDL)2023-07-24 21:48:18* Test Item Value Reference Range Interpretation Comme nts CHOL (test code = 1858197792) 220 mg/dL 120-200 H HDL (test code = 0933009449) 31 mg/dL >=40 L HDLC RATIO (test code = 7709500479) 7.1 <=5.0 H TRIG (test code = 9740341796) 134 mg/dL 30-170 LDL CHOL (test code = 46475-4) 162 mg/dL <=160 H VLDL (test code = 7373057983) 27 mg/dL 5-60 Lab Interpretation (test cod e = 70037-5) Abnormal [facility] Hospital[facility] Metabolic Qjbih7465-11-88 20:48:07* Test Item Value Reference Range Interpretation Comme nts NA (test code = 0612052313) 141 mmol/L 135-145 K (test code = 2941840274) 3.8 mmol/L 3.5-5.0 CL (test code = 1963262920) 103 mmol/L 98-108 CO2 TOTAL (test code = 6395638172) 29 mmol/L 23-31 AGAP (test code = 5600885881) 9 2-16 BUN (test code = 3644802088) 14 mg/dL 7-23 GLUCOSE (test code = 4855056629) 102 mg/dL 70-110 CREATININE (test code = 9966253806) 0.85 mg/dL 0.60-1.25 TOTAL BILI (test code = 1694694128) 1.2 mg/dL 0.1-1.1 H CALCIUM (test code = 8856640451) 10.0 mg/dL 8.6-10.6 T PROTEIN (test code = 6803483258) 8.9 g/dL 6.3-8.2 H ALBUMIN (test code = 2620483006) 5.0 g/dL 3.5-5.0 ALK PHOS (test code = 7103702281) 52 U/L 34-122 ALTv (test code = 1742-6) 22 U/L 5-50 AST(SGOT) (test code = 5344094703) 45 U/L 13-40 H eGFR (test code = 45758-3) 105.9 mL/min/1.73m2 CKD-EPI eGFR (2020). Assuming creatinine has been stable day-to-day for at least three months, the eGFR indicates Category G1 (>= 90 mL/min/1.73 m2) Lab Interpretation (test code = 79104-6) [id number] 20:48:07* Test Item Value Reference Range Interpretation Comme nts LIPASE (test code = 9495792484) 134 U/L 0-220 Lab Interpretation (test cod e = 26834-8) [facility] [id number] 20:20:02* Test Item Value Reference Range Interpretation Comme nts WBC (test code = 6690-2) 6.91 See_Comment [Automated [employer]] The system which generated this result transmitted reference range: 4.20 - 10.70 10*3/?L. The reference range was not used to interpret this result as normal/abnormal. RBC (test code = 789-8) 5.49 See_Comment [Automated messa ge] The system which [...] 34.7 g/dL 31.2-35.0 RDW-SD (test code = 72272-2) 40.0 fL 38.5-51.6 RDW-CV (test code = 788-0) 12.7 % 12.1-15.4 PLT (test code = 777-3) 228 See_Comment [Automated [employer] ge] The system which generated this result transmitted reference range: 150 - 328 10*3/?L. The reference range was not used to interpret this result as normal/abnormal. MPV (test code = 79931-9) 9.5 fL 9.8-13.0 L NRBC/100 WBC (test code = 0460292164) 0.0 See_Comment [Automated [employer]] The system which generated this result transmitted reference range: 0.0 - 10.0 /100 WBCs. The reference range was not used to interpret this result as normal/abnormal. NRBC x10^3 (test code = 7735270674) See_Comment [Automated [employer] ge] The system which generated this result transmitted reference range: 10*3/?L. The reference range was not used to interpret this result as normal/abnormal. GRAN MAT (NEUT) % (test code = 770-8) 46.9 % IMM GRAN % (test code = 2683680246) 0.30 % LYMPH % (test code = 736-9) 42.3 % MONO % (test code = 5905-5) 9.8 % EOS % (test code = 713-8) 0.4 % BASO % (test code = 706-2) 0.3 % GRAN MAT x10^3(ANC) (test code = 8433450701) 3.24 10*3/uL 1.99-6.95 IMM GRAN x10^3 (test code = 6411073216) 0.00-0.06 LYMPH x10^3 (test code = 731-0) 2.92 10*3/uL 1.09-3.23 MONO x10^3 (test code = 742-7) 0.68 10*3/uL 0.36-1.02 EOS x10^3 (test code = 711-2) 0.03 10*3/uL 0.06-0.53 L BASO x10^3 (test code = 704-7) 0.01-0.09 Lab Interpretation (test code = 87518-2) Abnormal [facility] ABD PELVIS [id number] 08:28:00 [facility] 1970 Sex: M PatientName: NOAH PUTNAM Unit No: [id number] EXAMS: CPT CODE: [id number] CT ABD PELVIS W/CONT 63455 EXAM: - CT ABD PELVIS W/CONT INDICATION: [...] extraluminal fluid. IMPRESSION: 1. No acute abnormality. [facility] NAME: NOAH PUTNAM [id number] PHYS: [place] [address] : 1970 AGE: 52 SEX: M LOC: [place] PHONE #: [phone] EXAM DATE: 07/23/2023 STATUS: REG ER FAX #: [phone] RAD #: D/C DT PAGE 1 Signed Report (CONTINUED) Patient Name: NOAH PUTNAM Unit No: [id number] EXAMS: CPT CODE: [id number] CT ABD PELVIS W/CONT 99823 (Continued) at 0828 Reported and signed by: Kiara Meza MD CC: Kristian Paul MD Technologist: Jovanni GREEN CTDI: DLP: Trnscrpt: 07/23/2023 (0828) YessicaR.CB5 [facility] NAME: NOAH PUTNAM [id number] PHYS: [place]. [place] [address] : 1970 AGE: 52 SEX: M LOC: Douguo PHONE#: [phone] EXAM DATE: 07/23/2023 STATUS: REG ER FAX #: [phone] RAD #: D/C DT PAGE 2 Signed Report Patient Name: NOAH PUTNAM Unit No: [id number] EXAMS: CPT CODE: [id number] CT ABD PELVIS W/CONT 17772 (Continued) Orig Print D/T: S: 07/23/2023 (0831) [facility] NAME: NOAH PUTNAM [address] PHYS: [place] [address] : 1970 AGE: 52 SEX: M LOC: ABDELRAHMAN PHONE #: [phone] EXAM DATE: 07/23/2023 STATUS: REG ER FAX #: [phone] RAD #: D/C DT PAGE 3 Signed ReportURINALYSIS [id number] 06:32:00* Test Item Value Reference Range Interpretation [...] /mm3 NEGATIVE SOURCE OF URINE: CLEAN CATCHUA [id number] 06:32:00* Test Item Value Reference Range Interpretation Comme nts UA RBC (test code = RBCU) 3-5 RBC/HPF 0-3 A UA WBC (test code = XWBCU) 0-3 WBC/HPF 0-5 UA EPITHELIAL CELLS (test co de = EPIU) RARE EPI/HPF FEW UA BACTERIA (test code = XBACU) FEW NONE UA MUCUS (test code = MUCU) MODERATE #/LPF NONE A SOURCE OF URINE: CLEAN CATCHBASIC METABOLIC [id number] 06:31:00* Test Item Value Reference Range Interpretation [...] CA) 9.5 MG/DL 8.4-10.2 N HEPATIC FUNCTION [id number] 06:31:00* Test Item Value Reference Range Interpretation [...] code = ALKP) 57 UNITS/L 38-126 N [id number] 06:31:00* Test Item Value Reference Range Interpretation Comme nts LIPASE (test code = LIP) 94 UNITS/L 23-300 N [id number] 06:31:00* Test Item Value Reference Range Interpretation Comme nts TROPONIN-I (test code = TROPI) 0.019 NG/ML 0.012-0.033 N PROTHROMBIN [id number] 06:07:00* Test Item Value Reference Range Interpretation [...] systemic embolism. 3.0 - 4.5 CBC W/O [id number] 06:00:00* Test Item Value Reference Range Interpretation [...] = NRBC#) 0.00 K/mm3 0.0-0.1 N Troponin [id number] 02:46:51* Test Item Value Reference Range Interpretation Comme nts TROPONIN I (test code = 2309363388) 0.017 ng/mL <=0.034 KRYSTLE (test code = [...] of biotin. Lab Interpretation (test code = 88348-4) [facility] 02:35:28* Test Item Value Reference Range Interpretation Comme nts NA (test code = 5845836856) 138 mmol/L 135-145 K (test code = 1677548571) 3.7 mmol/L 3.5-5.0 CL (test code = 3914824954) 106 mmol/L 98-108 CO2 TOTAL (test code = 1051364090) 24 mmol/L 23-31 AGAP (test code = 6251882289) 8 2-16 BUN (test code = 2112375479) 11 mg/dL 7-23 GLUCOSE (test code = 3586669228) 165 mg/dL 70-110 H CREATININE (test code = 6130420644) 0.89 mg/dL 0.60-1.25 TOTAL BILI (test code = 9783704478) 0.2 mg/dL 0.1-1.1 CALCIUM (test code = 6133846119) 9.3 mg/dL 8.6-10.6 T PROTEIN (test code = 3528503281) 7.0 g/dL 6.3-8.2 ALBUMIN (test code = 9406623610) 4.0 g/dL 3.5-5.0 ALK PHOS (test code = 4631819626) 59 U/L 34-122 ALTv (test code = 1742-6) 23 U/L 5-50 AST(SGOT) (test code = 4880319844) 27 U/L 13-40 eGFR (test code = 0596361476) 90.5 mL/min/1.73m2 KRYSTLE (test code = KRYSTLE) [...] imaging tests). Lab Interpretation (test code = 47557-2) Abnormal [facility] with [id number] 02:26:10* Test Item Value Reference Range Interpretation [...] g/dL 31.2-35.0 H RDW-SD (test code = 45025-3) 38.6 fL 38.5-51.6 RDW-CV (test code = 788-0) 12.6 % 12.1-15.4 PLT (test code = 777-3) 200 See_Comment [Automated messa ge] The system which generated this result transmitted reference range: 150 - 328 10*3/?L. The reference range was not used to interpret this result as normal/abnormal. MPV (test code = 53940-8) 9.6 fL 9.8-13.0 L NRBC/100 WBC (test code = 2815209540) 0.0 See_Comment [Automated Freta.lá ssage] The system which generated this result transmitted reference range: 0.0 - 10.0 /100 WBCs. The reference range was not used to interpret this result as normal/abnormal. NRBC x10^3 (test code = 3963973659) See_Comment [Automated messa ge] The system which generated this result transmitted reference range: 10*3/?L. The reference range was not used to interpret this result as normal/abnormal. GRAN MAT (NEUT) % (test code = 770-8) 36.8 % IMM GRAN % (test code = 5724412652) 0.20 % LYMPH % (test code = 736-9) 54.7 % MONO % (test code = 5905-5) 7.1 % EOS % (test code = 713-8) 0.9 % BASO % (test code = 706-2) 0.3 % GRAN MAT x10^3(ANC) (test code = 1034758105) 2.13 10*3/uL 1.99-6.95 IMM GRAN x10^3 (test code = 4201435261) 0.00-0.06 LYMPH x10^3 (test code = 731-0) 3.16 10*3/uL 1.09-3.23 MONO x10^3 (test code = 742-7) 0.41 10*3/uL 0.36-1.02 EOS x10^3 (test code = 711-2) 0.05 10*3/uL 0.06-0.53 L BASO x10^3 (test code = 704-7) 0.01-0.09 Lab Interpretation (test code = 60901-8) [facility] (73301)2023-07-03 10:47:01* Test Item Value Reference Range Interpretation Comme nts NA (test code = 9219505568) 138 mmol/L 135-145 K (test code = 5993648267) 4.5 mmol/L 3.5-5.0 Slight hemolysis CL (test code = 2415922964) 103 mmol/L 98-108 CO2 TOTAL (test code = 2930929435) 23 mmol/L 23-31 AGAP (test code = 5782849305) 12 2-16 BUN (test code = 1904088923) 16 mg/dL 7-23 Slight hemolysis GLUCOSE (test code = 9262034703) 142 mg/dL 70-110 H CREATININE (test code = 8123814937) 0.99 mg/dL 0.60-1.25 TOTAL BILI (test code = 3237972606) 1.2 mg/dL 0.1-1.1 H CALCIUM (test code = 8254666546) 9.6 mg/dL 8.6-10.6 T PROTEIN (test code = 7445499358) 8.1 g/dL 6.3-8.2 ALBUMIN (test code = 4957465958) 4.6 g/dL 3.5-5.0 ALK PHOS (test code = 4435941126) 51 U/L 34-122 Slight hemolysis ALTv (test code = 1742-6) 26 U/L 5-50 AST(SGOT) (test code = 2492169093) 32 U/L 13-40 Slight hemolysis eGFR (test code = 4259887515) 80.0 mL/min/1.73m2 KRYSTLE (test code = KRYSTLE) [...] imaging tests). Lab Interpretation (test code = 92826-8) [facility] 10:47:01* Test Item Value Reference Range Interpretation Comme nts LIPASE (test code = 5443210505) 955 U/L 0-220 H Lab Interpretation (test cod e = 86657-6) Abnormal [facility] WITH [id number] 10:27:34* Test Item Value Reference Range Interpretation [...] 34.5 g/dL 31.2-35.0 RDW-SD (test code = 40476-8) 39.4 fL 38.5-51.6 RDW-CV (test code = 788-0) 12.3 % 12.1-15.4 PLT (test code = 777-3) 226 See_Comment [Automated messa ge] The system which generated this result transmitted reference range: 150 - 328 10*3/?L. The reference range was not used to interpret this result as normal/abnormal. MPV (test code = 16822-8) 9.6 fL 9.8-13.0 L NRBC/100 WBC (test code = 0366696754) 0.0 See_Comment [Automated Freta.lá ssage] The system which generated this result transmitted reference range: 0.0 - 10.0 /100 WBCs. The reference range was not used to interpret this result as normal/abnormal. NRBC x10^3 (test code = 6387721761) See_Comment [Automated messa ge] The system which generated this result transmitted reference range: 10*3/?L. The reference range was not used to interpret this result as normal/abnormal. GRAN MAT (NEUT) % (test code = 770-8) 54.9 % IMM GRAN % (test code = 5095921462) 0.20 % LYMPH % (test code = 736-9) 36.2 % MONO % (test code = 5905-5) 7.9 % EOS % (test code = 713-8) 0.5 % BASO % (test code = 706-2) 0.3 % GRAN MAT x10^3(ANC) (test code = 1005924133) 3.63 10*3/uL 1.99-6.95 IMM GRAN x10^3 (test code = 3499449622) 0.00-0.06 LYMPH x10^3 (test code = 731-0) 2.39 10*3/uL 1.09-3.23 MONO x10^3 (test code = 742-7) 0.52 10*3/uL 0.36-1.02 EOS x10^3 (test code = 711-2) 0.03 10*3/uL 0.06-0.53 L BASO x10^3 (test code = 704-7) 0.01-0.09 Lab Interpretation (test code = 46661-8) Abnormal [facility] W/[id number] 00:06:[facility] 1970 Sex: M Patient Name: NOAH PUTNAM Unit No: [id number] EXAMS: CPT CODE: [id number] CT ABD PELVIS W/CONT 70874 Reason: diffuse abd pain CT Scan of [...] appendix is unremarkable. IMPRESSION: No acute findings inthe abdomen or pelvis. Mildly enlarged prostate with a nodular component protruding into the bladder base. Correlation with PSA is recommended. at 0006 Reported and signed by: Jennifer Bass MD CC: Kristian Gleason DO; [facility] Technologist: Cory SCHOFIELD Trscrpt Dt/ (000)t.SDR.MA50 Orig Print D/T: S: 07/02/2023 (0009) CTDI: DLP: [place] FSED NAME: NOAH PUTNAM [address] [place] [address] PHYS:MANOLO.Kristian Hodge [address] : 1970 AGE: 52 SEX: M [place], [place] [address] LOC: D.PER PHONE #: [phone] EXAM DATE: 07/01/2023 STATUS: REG ER FAX #: RAD NO:DC Dt: PAGE 1 Signed ReportTROP-I HIGH [id number] 23:55:00* Test Item Value Reference Range Interpretation [...] troponin from other clinical conditions, the Fourth Clarks Definition of Myocardial Infarction stresses clinical assessment and demonstration of a rise and/or fall in serial troponin results above the upper reference limit.Results of this assay method may be falsely depressed orelevated if patient is taking high doses of Biotin. BASIC METABOLIC [id number] 23:55:00* Test Item Value Reference Range Interpretation [...] CA) 9.3 MG/DL 8.7-10.5 N HEPATIC FUNCTION [id number] 23:55:00* Test Item Value Reference Range Interpretation [...] code = ALKP) 60 Units/L 50-136 N [id number] 23:55:00* Test Item Value Reference Range Interpretation Comme [facility] LIPASE (test code = LIP) 259 U/L 16-77 H New Reference Ranges of 16-77 U/L please reviewrevised from 73-393 U/L on 06/30/2023 CBC W/AUTO [id number] 23:24:00* Test Item Value Reference Range Interpretation Comme [facility] WHITE BLOOD CELL (test code = WBC) [...] = BA#) 0.02 x10 3/uL 0.0-0.2 N [id number] 12:29:00* Test Item Value Reference Range Interpretation Comme [facility] LIPASE (test code = LIP) 73 Units/L 73-393 N [id number] 17:24:56* Test Item Value Reference Range Interpretation Comme [facility] LIPASE (test code = 6482185823) 283 U/L 0-220 H Lab Interpretation (test cod e = 20137-6) Abnormal [facility] METABOLIC PANEL (NA, K, CL, CO2, GLUCOSE, BUN, CREATININE, CA)2023-04-22 17:24:35* Test Item Value Reference Range Interpretation Comme [facility] NA (test code = 1429669778) 139 mmol/L 135-145 K (test code = 4226142130) 4.0 mmol/L 3.5-5.0 CL (test code = 0097760225) 106 mmol/L 98-108 CO2 TOTAL (test code = 9800537315) 25 mmol/L 23-31 AGAP (test code = 8232861201) 8 2-16 BUN (test code = 2802549630) 21 mg/dL 7-23 GLUCOSE (test code = 9364180546) 110 mg/dL 70-110 CREATININE (test code = 8283606405) 1.06 mg/dL 0.60-1.25 CALCIUM (test code = 6590414530) 8.1 mg/dL 8.6-10.6 L eGFR (test code = 2407515200) 74.0 mL/min/1.73m2 KRYSTLE (test code = KRYSTLE) [...] imaging tests). Lab Interpretation (test code = 63815-9) [facility]normal [facility] [id number] 13:57:28* Test Item Value Reference Range Interpretation Comme nts CK (test code = 2451129239) 635 U/L 33-194 H Lab Interpretation (test cod e = 55676-1) [facility]normal [facility] (NA, K, CL, CO2, GLUCOSE, BUN, CREATININE, CA)2023-04-22 13:23:02* Test Item Value Reference Range Interpretation Comme nts NA (test code = 5425984666) 141 mmol/L 135-145 K (test code = 6700999500) 4.0 mmol/L 3.5-5.0 CL (test code = 4801678100) 107 mmol/L 98-108 CO2 TOTAL (test code = 3416046665) 27 mmol/L 23-31 AGAP (test code = 5177639139) 7 2-16 BUN (test code = 7099160038) 22 mg/dL 7-23 GLUCOSE (test code = 0263807117) 94 mg/dL 70-110 CREATININE (test code = 4043508117) 1.26 mg/dL 0.60-1.25 H CALCIUM (test code = 3013775688) 8.3 mg/dL 8.6-10.6 L eGFR (test code = 4446878356) 60.6 mL/min/1.73m2 KRYSTLE (test code = KRYSTLE) [...] imaging tests). Lab Interpretation (test code = 22149-7) [facility]normal [facility] 13:22:41* Test Item Value Reference Range Interpretation Comme nts LIPASE (test code = 4441943368) 897 U/L 0-220 H Lab Interpretation (test cod e = 20651-3) [facility]normal [facility] (17006)2023-04-22 09:43:42* Test Item Value Reference Range Interpretation Comme nts NA (test code = 1430065560) 140 mmol/L 135-145 K (test code = 7865500287) 3.7 mmol/L 3.5-5.0 CL (test code = 0700374981) 103 mmol/L 98-108 CO2 TOTAL (test code = 8235974213) 24 mmol/L 23-31 AGAP (test code = 8745991310) 13 2-16 BUN (test code = 5541634197) 24 mg/dL 7-23 H GLUCOSE (test code = 2503222717) 114 mg/dL 70-110 H CREATININE (test code = 2171280169) 1.42 mg/dL 0.60-1.25 H TOTAL BILI (test code = 5756881678) 0.9 mg/dL 0.1-1.1 CALCIUM (test code = 2428562782) 9.5 mg/dL 8.6-10.6 T PROTEIN (test code = 4611081057) 9.2 g/dL 6.3-8.2 H ALBUMIN (test code = 2211845909) 4.9 g/dL 3.5-5.0 ALK PHOS (test code = 4105898736) 66 U/L 34-122 ALTv (test code = 1742-6) 25 U/L 5-50 AST(SGOT) (test code = 3736749581) 37 U/L 13-40 eGFR (test code = 6432738667) 52.8 mL/min/1.73m2 KRYSTLE (test code = KRYSTLE) [...] imaging tests). Lab Interpretation (test code = 25786-1) Abnormal [facility] WITH [id number] 09:33:37* Test Item Value Reference Range Interpretation Comme nts WBC (test code = 6690-2) 8.53 See_Comment [Automated [employer]] The system which generated this result transmitted reference range: 4.20 - 10.70 10*3/?L. The reference range was not used to interpret this result as normal/abnormal. RBC (test code = 789-8) 5.60 See_Comment H [Automated [employer]] The system which generated this result transmitted [...] g/dL 31.2-35.0 H RDW-SD (test code = 27668-7) 40.1 fL 38.5-51.6 RDW-CV (test code = 788-0) 13.0 % 12.1-15.4 PLT (test code = 777-3) 267 See_Comment [Automated OpenSpacea ge] The system which generated this result transmitted reference range: 150 - 328 10*3/?L. The reference range was not used to interpret this result as normal/abnormal. MPV (test code = 59229-2) 9.6 fL 9.8-13.0 L NRBC/100 WBC (test code = 7149503743) 0.0 See_Comment [Automated Freta.lá ssage] The system which generated this result transmitted reference range: 0.0 - 10.0 /100 WBCs. The reference range was not used to interpret this result as normal/abnormal. NRBC x10^3 (test code = 9351587355) See_Comment [Automated OpenSpacea ge] The system which generated this result transmitted reference range: 10*3/?L. The reference range was not used to interpret this result as normal/abnormal. GRAN MAT (NEUT) % (test code = 770-8) 44.5 % IMM GRAN % (test code = 2709379309) 0.20 % LYMPH % (test code = 736-9) 43.4 % MONO % (test code = 5905-5) 10.7 % EOS % (test code = 713-8) 0.8 % BASO % (test code = 706-2) 0.4 % GRAN MAT x10^3(ANC) (test code = 9624835426) 3.80 10*3/uL 1.99-6.95 IMM GRAN x10^3 (test code = 5947310442) 0.00-0.06 LYMPH x10^3 (test code = 731-0) 3.70 10*3/uL 1.09-3.23 H MONO x10^3 (test code = 742-7) 0.91 10*3/uL 0.36-1.02 EOS x10^3 (test code = 711-2) 0.07 10*3/uL 0.06-0.53 BASO x10^3 (test code = 704-7) 0.03 10*3/uL 0.01-0.09 Lab Interpretation (test code = 66390-7) Abnormal [facility] [id number] 13:23:31* Test Item Value Reference Range Interpretation Comme nts TROPONIN I (test code = 3001962097) 0.020 ng/mL <=0.034 KRYSTLE (test code = [...] of biotin. Lab Interpretation (test code = 59810-8) Normal [facility] [id number] 13:23:31* Test Item Value Reference Range Interpretation Comme nts TROPONIN I (test code = 8007616983) 0.020 ng/mL <=0.034 KRYSTLE (test code = [...] of biotin. Lab Interpretation (test code = 81899-5) Normal [facility] (36027)2023-04-16 12:58:04* Test Item Value Reference Range Interpretation Comme nts NA (test code = 1098717066) 142 mmol/L 135-145 K (test code = 1346829448) 4.0 mmol/L 3.5-5.0 CL (test code = 2064914203) 105 mmol/L 98-108 CO2 TOTAL (test code = 3221259471) 28 mmol/L 23-31 AGAP (test code = 9708797328) 9 2-16 BUN (test code = 7137628793) 11 mg/dL 7-23 GLUCOSE (test code = 2089078949) 115 mg/dL 70-110 H CREATININE (test code = 3500203867) 0.85 mg/dL 0.60-1.25 TOTAL BILI (test code = 9926512167) 0.4 mg/dL 0.1-1.1 CALCIUM (test code = 7996661712) 9.2 mg/dL 8.6-10.6 T PROTEIN (test code = 9807559931) 7.6 g/dL 6.3-8.2 ALBUMIN (test code = 9325814993) 4.4 g/dL 3.5-5.0 ALK PHOS (test code = 2377737175) 52 U/L 34-122 ALTv (test code = 1742-6) 23 U/L 5-50 AST(SGOT) (test code = 5274839351) 33 U/L 13-40 eGFR (test code = 5843653523) 95.4 mL/min/1.73m2 KRYSTLE (test code = KRYSTLE) [...] imaging tests). Lab Interpretation (test code = 84804-1) [facility] 12:58:04* Test Item Value Reference Range Interpretation Comme nts LIPASE (test code = 2742930779) 492 U/L 0-220 H Lab Interpretation (test cod e = 35330-9) [facility]normal [facility] (78261)2023-04-16 12:58:04* Test Item Value Reference Range Interpretation Comme nts NA (test code = 1097232438) 142 mmol/L 135-145 K (test code = 6826771208) 4.0 mmol/L 3.5-5.0 CL (test code = 3877560969) 105 mmol/L 98-108 CO2 TOTAL (test code = 6542922618) 28 mmol/L 23-31 AGAP (test code = 7268243478) 9 2-16 BUN (test code = 1873581742) 11 mg/dL 7-23 GLUCOSE (test code = 3118510741) 115 mg/dL 70-110 H CREATININE (test code = 3415588623) 0.85 mg/dL 0.60-1.25 TOTAL BILI (test code = 5587124497) 0.4 mg/dL 0.1-1.1 CALCIUM (test code = 5233047609) 9.2 mg/dL 8.6-10.6 T PROTEIN (test code = 0628467657) 7.6 g/dL 6.3-8.2 ALBUMIN (test code = 7217494363) 4.4 g/dL 3.5-5.0 ALK PHOS (test code = 9479707873) 52 U/L 34-122 ALTv (test code = 1742-6) 23 U/L 5-50 AST(SGOT) (test code = 6676290765) 33 U/L 13-40 eGFR (test code = 9147844271) 95.4 mL/min/1.73m2 KRYSTLE (test code = KRYSTLE) [...] imaging tests). Lab Interpretation (test code = 15253-9) [facility] 12:58:04* Test Item Value Reference Range Interpretation Comme nts LIPASE (test code = 9250098849) 492 U/L 0-220 H Lab Interpretation (test cod e = 85047-9) Abnormal [facility] WITH [id number] 12:50:01* Test Item Value Reference Range Interpretation [...] 34.9 g/dL 31.2-35.0 RDW-SD (test code = 70609-8) 41.4 fL 38.5-51.6 RDW-CV (test code = 788-0) 13.2 % 12.1-15.4 PLT (test code = 777-3) 219 See_Comment [Automated messa ge] The system which generated this result transmitted reference range: 150 - 328 10*3/?L. The reference range was not used to interpret this result as normal/abnormal. MPV (test code = 96434-8) 9.5 fL 9.8-13.0 L NRBC/100 WBC (test code = 4351825946) 0.0 See_Comment [Automated Freta.lá ssage] The system which generated this result transmitted reference range: 0.0 - 10.0 /100 WBCs. The reference range was not used to interpret this result as normal/abnormal. NRBC x10^3 (test code = 3096304822) See_Comment [Automated messa ge] The system which generated this result transmitted reference range: 10*3/?L. The reference range was not used to interpret this result as normal/abnormal. GRAN MAT (NEUT) % (test code = 770-8) 46.9 % IMM GRAN % (test code = 7191110356) 0.10 % LYMPH % (test code = 736-9) 43.4 % MONO % (test code = 5905-5) 8.4 % EOS % (test code = 713-8) 0.9 % BASO % (test code = 706-2) 0.3 % GRAN MAT x10^3(ANC) (test code = 4265660788) 3.16 10*3/uL 1.99-6.95 IMM GRAN x10^3 (test code = 7172324257) 0.00-0.06 LYMPH x10^3 (test code = 731-0) 2.93 10*3/uL 1.09-3.23 MONO x10^3 (test code = 742-7) 0.57 10*3/uL 0.36-1.02 EOS x10^3 (test code = 711-2) 0.06 10*3/uL 0.06-0.53 BASO x10^3 (test code = 704-7) 0.01-0.09 Lab Interpretation (test code = 90211-1) Abnormal [facility] WITH [id number] 12:50:01* Test Item Value Reference Range Interpretation Comme nts WBC (test code = 6690-2) 6.75 See_Comment [Automated [employer] ge] The system which generated this result transmitted reference range: 4.20 - 10.70 10*3/?L. The reference range was not used to interpret this result as normal/abnormal. RBC (test code = 789-8) 5.08 See_Comment [Automated [employer] ge] The system which generated this result [...] 34.9 g/dL 31.2-35.0 RDW-SD (test code = 55272-1) 41.4 fL 38.5-51.6 RDW-CV (test code = 788-0) 13.2 % 12.1-15.4 PLT (test code = 777-3) 219 See_Comment [Automated messa ge] The system which generated this result transmitted reference range: 150 - 328 10*3/?L. The reference range was not used to interpret this result as normal/abnormal. MPV (test code = 88421-0) 9.5 fL 9.8-13.0 L NRBC/100 WBC (test code = 6203400641) 0.0 See_Comment [Automated Freta.lá ssage] The system which generated this result transmitted reference range: 0.0 - 10.0 /100 WBCs. The reference range was not used to interpret this result as normal/abnormal. NRBC x10^3 (test code = 0807815342) See_Comment [Automated messa ge] The system which generated this result transmitted reference range: 10*3/?L. The reference range was not used to interpret this result as normal/abnormal. GRAN MAT (NEUT) % (test code = 770-8) 46.9 % IMM GRAN % (test code = 7937074736) 0.10 % LYMPH % (test code = 736-9) 43.4 % MONO % (test code = 5905-5) 8.4 % EOS % (test code = 713-8) 0.9 % BASO % (test code = 706-2) 0.3 % GRAN MAT x10^3(ANC) (test code = 2770347127) 3.16 10*3/uL 1.99-6.95 IMM GRAN x10^3 (test code = 7338276084) 0.00-0.06 LYMPH x10^3 (test code = 731-0) 2.93 10*3/uL 1.09-3.23 MONO x10^3 (test code = 742-7) 0.57 10*3/uL 0.36-1.02 EOS x10^3 (test code = 711-2) 0.06 10*3/uL 0.06-0.53 BASO x10^3 (test code = 704-7) 0.01-0.09 Lab Interpretation (test code = 75962-9) [facility]2023[facility] 21:02:35* Test Item Value Reference Range Interpretation Comme [facility] POCT GLU (test code = 8841821064) 118 mg/dL 70-110 H Lab Interpretation (test cod e = 41955-3) Abnormal [facility] WITH [id number] 05:51:48* Test Item Value Reference Range Interpretation Comme [facility] WBC (test code = 6690-2) 7.64 [...] 34.4 g/dL 31.2-35.0 RDW-SD (test code = 43842-9) 38.5 fL 38.5-51.6 RDW-CV (test code = 788-0) 12.5 % 12.1-15.4 PLT (test code = 777-3) 216 See_Comment [Automated messa ge] The system which generated this result transmitted reference range: 150 - 328 10*3/?L. The reference range was not used to interpret this result as normal/abnormal. MPV (test code = 61287-0) 10.0 fL 9.8-13.0 NRBC/100 WBC (test code = 6998421292) 0.0 See_Comment [Automated me ssage] The system which generated this result transmitted reference range: 0.0 - 10.0 /100 WBCs. The reference range was not used to interpret this result as normal/abnormal. NRBC x10^3 (test code = 4559688414) See_Comment [Automated messa ge] The system which generated this result transmitted reference range: 10*3/?L. The reference range was not used to interpret this result as normal/abnormal. SEG % (test code = 72340-1) 36 % 33-76 LYMPH % (test code = 96401-7) 48 % 14-54 MONO % (test code = 55837-0) 13 % 0-4 H EOS % (test code = 82866-6) 3 % 0-3 ANC (test code = 753-4) 2.75 10*3/uL 1.99-6.95 Lab Interpretation (test code = 90461-3) Abnormal [facility]. METABOLIC PANEL (50423)2022-12-09 05:24:19* Test Item Value Reference Range Interpretation Comme nts NA (test code = 8801375641) 139 mmol/L 135-145 K (test code = 0836308639) 3.8 mmol/L 3.5-5.0 CL (test code = 3618141548) 105 mmol/L 98-108 CO2 TOTAL (test code = 5359037655) 24 mmol/L 23-31 AGAP (test code = 7183370987) 10 2-16 BUN (test code = 0402836779) 11 mg/dL 7-23 GLUCOSE (test code = 0711135764) 115 mg/dL 70-110 H CREATININE (test code = 4614017556) 0.93 mg/dL 0.60-1.25 TOTAL BILI (test code = 5863490102) 0.8 mg/dL 0.1-1.1 CALCIUM (test code = 5525860829) 9.3 mg/dL 8.6-10.6 T PROTEIN (test code = 6908949295) 8.0 g/dL 6.3-8.2 ALBUMIN (test code = 5006463843) 4.5 g/dL 3.5-5.0 ALK PHOS (test code = 6600764700) 50 U/L 34-122 ALTv (test code = 1742-6) 22 U/L 5-50 AST(SGOT) (test code = 7476322951) 36 U/L 13-40 eGFR (test code = 6054715323) 86.0 mL/min/1.73m2 KRYSTLE (test code = KRYSTLE) [...] imaging tests). Lab Interpretation (test code = 86702-5) Abnormal [facility] 05:24:18* Test Item Value Reference Range Interpretation Comme nts LIPASE (test code = 2659116601) 271 U/L 0-220 H Lab Interpretation (test cod e = 33035-3) Abnormal [facility]CBC with [id number] 22:09:52* Test Item Value Reference Range Interpretation Comme nts WBC (test code = 6690-2) See_Comment [Automated messa ge] The system which generated this result transmitted reference range: 4.20 - 10.70 10*3/?L. The reference range was not used to interpret this result as normal/abnormal. RBC (test code = 789-8) See_Comment [Automated [employer] ge] The system which generated this result [...] g/dL 31.2-35.0 H RDW-SD (test code = 49580-3) 39.2 fL 38.5-51.6 RDW-CV (test code = 788-0) 12.9 % 12.1-15.4 PLT (test code = 777-3) See_Comment [Automated [employer] ge] The system which generated this result transmitted reference range: 150 - 328 10*3/?L. The reference range was not used to interpret this result as normal/abnormal. MPV (test code = 75053-6) 9.0 fL 9.8-13.0 L NRBC/100 WBC (test code = 5041982009) See_Comment [Automated Freta.lá ssage] The system which generated this result transmitted reference range: 0.0 - 10.0 /100 WBCs. The reference range was not used to interpret this result as normal/abnormal. NRBC x10^3 (test code = 2779261769) See_Comment [Automated [employer] ge] The system which generated this result transmitted reference range: 10*3/?L. The reference range was not used to interpret this result as normal/abnormal. GRAN MAT (NEUT) % (test code = 770-8) 35.3 % IMM GRAN % (test code = 3694026062) 0.00 % LYMPH % (test code = 736-9) 56.0 % MONO % (test code = 5905-5) 7.9 % EOS % (test code = 713-8) 0.4 % BASO % (test code = 706-2) 0.4 % GRAN MAT x10^3(ANC) (test code = 1779626061) 1.87 10*3/uL 1.99-6.95 L IMM GRAN x10^3 (test code = 2219135913) 0.00-0.06 LYMPH x10^3 (test code = 731-0) 2.97 10*3/uL 1.09-3.23 MONO x10^3 (test code = 742-7) 0.42 10*3/uL 0.36-1.02 EOS x10^3 (test code = 711-2) 0.06-0.53 L BASO x10^3 (test code = 704-7) 0.01-0.09 Lab Interpretation (test code = 67250-8) Abnormal [facility] METABOLIC PANEL (NA, K, CL, CO2, GLUCOSE, BUN, CREATININE, CA)2022-10-12 00:25:13* Test Item Value Reference Range Interpretation Comme nts NA (test code = 4176610877) 136 mmol/L 135-145 K (test code = 2852532418) 3.5 mmol/L 3.5-5.0 CL (test code = 4527896626) 103 mmol/L 98-108 CO2 TOTAL (test code = 0033199947) 26 mmol/L 23-31 AGAP (test code = 1134318721) 2-16 BUN (test code = 4665186680) 14 mg/dL 7-23 GLUCOSE (test code = 6619345669) 157 mg/dL 70-110 H CREATININE (test code = 8074306396) 0.80 mg/dL 0.60-1.25 CALCIUM (test code = 9506511764) 8.4 mg/dL 8.6-10.6 L eGFR (test code = 9257815712) mL/min/1.73m2 KRYSTLE (test code = KRYSTLE) Association [...] imaging tests). Lab Interpretation (test code = 01469-9) Abnormal [facility] HospitalHEPATIC FUNCTION PANEL (02389) (ALB,T.PRO,BILI T,BU/BC,ALT,AST,ALK PHOS)2022-10-12 00:25:13* Test Item Value Reference Range Interpretation Comme nts TOTAL BILI (test code = 2046760781) 1.2 mg/dL 0.1-1.1 H BILI UNCON (test code = 1670168842) 1.0 mg/dL 0.1-1.1 BILI CONJ (test code = 3237988991) 0.0 mg/dL 0.0-0.3 T PROTEIN (test code = 1368523734) 7.1 g/dL 6.3-8.2 ALBUMIN (test code = 4123146910) 4.0 g/dL 3.5-5.0 ALK PHOS (test code = 9134558618) 59 U/L 34-122 ALTv (test code = 1742-6) 38 U/L 5-50 AST(SGOT) (test code = 5869984660) 61 U/L 13-40 H Lab Interpretation (test cod e = 85238-2) Abnormal [facility] HospitalABORH Confirmation (Lab Only)2022-10-11 21:35:47* Test Item Value Reference Range Interpretation Comme nts ABO & RH (test code = 20) O Positive Performed at [facility] Laboratory Services - [facility] Blood [address] Free: [phone] No. [id number] [facility] HospitalType and Screen - ONCE Firjcrf9781-87-61 21:25:51* Test Item Value Reference Range Interpretation Comme nts ABO & RH (test code = 20) O POSITIVE Performed at [facility] Laboratory Services - [facility] Blood [address] Free: [phone] No. [id number] IAT (test code = 1185) Negative Performed at [facility] Laboratory Services - [place] [address]Toll Free: [phone] No. [id number] [facility]CBC WITH [id number] 20:47:43* Test Item Value Reference Range Interpretation [...] g/dL 31.2-35.0 H RDW-SD (test code = 52524-3) 41.1 fL 38.5-51.6 RDW-CV (test code = 788-0) 13.2 % 12.1-15.4 PLT (test code = 777-3) See_Comment [Automated [employer]a ge] The system which generated this result transmitted reference range: 150 - 328 10*3/?L. The reference range was not used to interpret this result as normal/abnormal. MPV (test code = 51581-5) 9.5 fL 9.8-13.0 L NRBC/100 WBC (test code = 5484966347) See_Comment [Automated Freta.lá ssage] The system which generated this result transmitted reference range: 0.0 - 10.0 /100 WBCs. The reference range was not used to interpret this result as normal/abnormal. NRBC x10^3 (test code = 3790727604) See_Comment [Automated [employer] ge] The system which generated this result transmitted reference range: 10*3/?L. The reference range was not used to interpret this result as normal/abnormal. GRAN MAT (NEUT) % (test code = 770-8) 38.2 % IMM GRAN % (test code = 0207409014) 0.00 % LYMPH % (test code = 736-9) 53.7 % MONO % (test code = 5905-5) 7.5 % EOS % (test code = 713-8) 0.3 % BASO % (test code = 706-2) 0.3 % GRAN MAT x10^3(ANC) (test code = 2158915543) 2.46 10*3/uL 1.99-6.95 IMM GRAN x10^3 (test code = 6941479031) 0.00-0.06 LYMPH x10^3 (test code = 731-0) 3.46 10*3/uL 1.09-3.23 H MONO x10^3 (test code = 742-7) 0.48 10*3/uL 0.36-1.02 EOS x10^3 (test code = 711-2) 0.06-0.53 L BASO x10^3 (test code = 704-7) 0.01-0.09 Lab Interpretation (test code = 23140-6) Abnormal [facility] HospitalLIPID PANEL (34360)(TOTAL CHOLESTEROL, TRIGLYCERIDES, HDL)2022-10-11 20:32:44* Test Item Value Reference Range Interpretation Comme nts CHOL (test code = 1861281583) 195 mg/dL 120-200 HDL (test code = 8731612276) 36 mg/dL See_Comment L [Automated messa ge] The system which generated this result transmitted reference range: >=40. The reference range was not used to interpret this result as normal/abnormal. HDLC RATIO (test code = 5099404726) See_Comment H [Automated messa ge] The system which generated this result transmitted reference range: <=5.0. The reference range was not used to interpret this result as normal/abnormal. TRIG (test code = 8727523639) 84 mg/dL 30-170 LDL CHOL (test code = 16023-5) 142 mg/dL See_Comment [Automated messa ge] The system which generated this result transmitted reference range: <=160. The reference range was not used to interpret this result as normal/abnormal. VLDL (test code = 2995254490) 17 mg/dL 5-60 Lab Interpretation (test code = 41628-0) Abnormal [facility] HospitalN-TERMINAL [id number] 14:23:55* Test Item Value Reference Range Interpretation Comme nts NT-proBNP (test code = 1340484648) See_Comment [Automated message] The system which generated this result transmitted reference range: <=125. The reference range was not used to interpret this result as normal/abnormal. KRYSTLE (test code = KRYSTLE) Biotin has been reported to cause a negative bias, interpret results relative to patient's use of biotin. Lab Interpretation (test code = 43797-1) Normal [facility] HospitalACTIVATED PARTIAL THRMPLAS [id number] 14:23:25* Test Item Value Reference Range Interpretation Comme nts APTT Patient (test code = 3173-2) See_Comment [Automated message] The system which generated this result transmitted reference range: 23 - 38 Seconds. The reference range was not used to interpret this result as normal/abnormal. KRYSTLE (test code = KRYSTLE) The [facility] patient population mean normal value for aPTT is 30 seconds. Lab Interpretation (test code = 04473-6) Normal [facility]2023-[facility] 14:23:05* Test Item Value Reference Range Interpretation Comme nts LIPASE (test code = 9673755793) 502 U/L 0-220 H Lab Interpretation (test cod e = 11987-7) Abnormal [facility] HospitalCOMP. METABOLIC PANEL (77522)2022-10-11 14:23:05* Test Item Value Reference Range Interpretation Comme nts NA (test code = 4305457648) 139 mmol/L 135-145 K (test code = 6727941252) 5.0 mmol/L 3.5-5.0 Slight hemolysis CL (test code = 4356431527) 103 mmol/L 98-108 CO2 TOTAL (test code = 9914155098) 28 mmol/L 23-31 AGAP (test code = 1710481496) 2-16 BUN (test code = 3598715028) 17 mg/dL 7-23 Slight hemolysis GLUCOSE (test code = 0114014994) 103 mg/dL 70-110 CREATININE (test code = 2739142021) 0.80 mg/dL 0.60-1.25 TOTAL BILI (test code = 2967465049) 1.6 mg/dL 0.1-1.1 H CALCIUM (test code = 5482933617) 9.0 mg/dL 8.6-10.6 T PROTEIN (test code = 6444880769) 8.4 g/dL 6.3-8.2 H ALBUMIN (test code = 2899209986) 4.8 g/dL 3.5-5.0 ALK PHOS (test code = 8141122105) 57 U/L 34-122 Slight hemolysis ALTv (test code = 1742-6) 49 U/L 5-50 AST(SGOT) (test code = 6049542500) 77 U/L 13-40 H Slight hemolysis eGFR (test code = 6695211111) mL/min/1.73m2 KRYSTLE (test code = KRYSTLE) Association [...] imaging tests). Lab Interpretation (test code = 63311-1) Abnormal [facility] HospitalTROPONIN [id number] 14:23:05* Test Item Value Reference Range Interpretation Comments TROPONIN I (test code = 7360212927) 0.018 ng/mL See_Comment [Automated message] The system [...] of biotin. Lab Interpretation (test code = 72941-6) Normal [facility] HospitalPROTHROMBIN TIME / [id number] 14:20:24* Test Item Value Reference Range Interpretation [...] the indications. Lab Interpretation (test code = 07775-4) Normal [facility] WITH [id number] 13:55:05* Test Item Value Reference Range Interpretation Comme nts WBC (test code = 6690-2) See_Comment [Automated Open[employer]a ge] The system which generated this result transmitted reference range: 4.20 - 10.70 10*3/?L. The reference range was not used to interpret this result as normal/abnormal. RBC (test code = 789-8) See_Comment [Automated [employer] ge] The system which generated this result [...] 34.9 g/dL 31.2-35.0 RDW-SD (test code = 32782-9) 40.4 fL 38.5-51.6 RDW-CV (test code = 788-0) 13.0 % 12.1-15.4 PLT (test code = 777-3) See_Comment [Automated [employer] ge] The system which generated this result transmitted reference range: 150 - 328 10*3/?L. The reference range was not used to interpret this result as normal/abnormal. MPV (test code = 67200-7) 9.1 fL 9.8-13.0 L NRBC/100 WBC (test code = 3891396638) See_Comment [Automated me ssage] The system which generated this result transmitted reference range: 0.0 - 10.0 /100 WBCs. The reference range was not used to interpret this result as normal/abnormal. NRBC x10^3 (test code = 1833151980) See_Comment [Automated messa ge] The system which generated this result transmitted reference range: 10*3/?L. The reference range was not used to interpret this result as normal/abnormal. GRAN MAT (NEUT) % (test code = 770-8) 53.2 % IMM GRAN % (test code = 3298518358) 0.10 % LYMPH % (test code = 736-9) 36.6 % MONO % (test code = 5905-5) 9.3 % EOS % (test code = 713-8) 0.5 % BASO % (test code = 706-2) 0.3 % GRAN MAT x10^3(ANC) (test code = 6996534750) 4.25 10*3/uL 1.99-6.95 IMM GRAN x10^3 (test code = 3789898087) 0.00-0.06 LYMPH x10^3 (test code = 731-0) 2.92 10*3/uL 1.09-3.23 MONO x10^3 (test code = 742-7) 0.74 10*3/uL 0.36-1.02 EOS x10^3 (test code = 711-2) 0.04 10*3/uL 0.06-0.53 L BASO x10^3 (test code = 704-7) 0.01-0.09 Lab Interpretation (test code = 36857-4) Abnormal [facility] HospitalCOMP. METABOLIC PANEL (20537)2022-06-09 13:23:22* Test Item Value Reference Range Interpretation Comme nts NA (test code = 3418679847) 138 mmol/L 135-145 K (test code = 0414084470) 4.5 mmol/L 3.5-5 CL (test code = 0542133030) 106 mmol/L 98-108 CO2 TOTAL (test code = 2318579023) 24 mmol/L 23-31 AGAP (test code = 7660129176) 2-16 BUN (test code = 6473200271) 18 mg/dL 7-23 GLUCOSE (test code = 1224156906) 97 mg/dL 70-110 CREATININE (test code = 8253081333) 0.98 mg/dL 0.6-1.25 TOTAL BILI (test code = 6469056325) 0.5 mg/dL 0.1-1.1 CALCIUM (test code = 5978047840) 9.3 mg/dL 8.6-10.6 T PROTEIN (test code = 8417848396) 7.3 g/dL 6.3-8.2 ALBUMIN (test code = 0010395893) 4.5 g/dL 3.5-5 ALK PHOS (test code = 4498165607) 65 U/L 34-122 ALTv (test code = 1742-6) 27 U/L 5-50 AST(SGOT) (test code = 7555447727) 33 U/L 13-40 eGFR (test code = 4663831090) mL/min/1.73m2 KRYSTLE (test code = KRYSTLE) Association [...] or urine or abnormalities in imaging tests). [facility] 13:23:01* Test Item Value Reference Range Interpretation Comme nts LIPASE (test code = 2849446556) 596 U/L 0-220 H Lab Interpretation (test cod e = 11736-8) Abnormal [facility] HospitalCBC WITH [id number] 13:09:00* Test Item Value Reference Range Interpretation Comme nts WBC (test code = 6690-2) See_Comment [Automated [employer]] The system which generated this result transmitted reference range: 4.20 - 10.70 10*3/?L. The reference range was not used to interpret this result as normal/abnormal. RBC (test code = 789-8) See_Comment [Automated [employer]] The system which generated this result transmitted [...] g/dL 31.2-35 H RDW-SD (test code = 23197-3) 38.3 fL 38.5-51.6 L RDW-CV (test code = 788-0) 12.3 % 12.1-15.4 PLT (test code = 777-3) See_Comment [Automated [employer]] The system which generated this result transmitted reference range: 150 - 328 10*3/?L. The reference range was not used to interpret this result as normal/abnormal. MPV (test code = 96549-2) 9.2 fL 9.8-13 L NRBC/100 WBC (test code = 1044075327) See_Comment [Automated me ssage] The system which generated this result transmitted reference range: 0.0 - 10.0 /100 WBCs. The reference range was not used to interpret this result as normal/abnormal. NRBC x10^3 (test code = 5791495862) See_Comment [Automated messa ge] The system which generated this result transmitted reference range: 10*3/?L. The reference range was not used to interpret this result as normal/abnormal. GRAN MAT (NEUT) % (test code = 770-8) 47.3 % IMM GRAN % (test code = 4549423214) 0.30 % LYMPH % (test code = 736-9) 43.8 % MONO % (test code = 5905-5) 7.8 % EOS % (test code = 713-8) 0.5 % BASO % (test code = 706-2) 0.3 % GRAN MAT x10^3(ANC) (test code = 0921114450) 3.04 10*3/uL 1.99-6.95 IMM GRAN x10^3 (test code = 0482208962) 0-0.06 LYMPH x10^3 (test code = 731-0) 2.81 10*3/uL 1.09-3.23 MONO x10^3 (test code = 742-7) 0.50 10*3/uL 0.36-1.02 EOS x10^3 (test code = 711-2) 0.03 10*3/uL 0.06-0.53 L BASO x10^3 (test code = 704-7) 0.01-0.09 Lab Interpretation (test code = 15362-9) Abnormal [facility] METABOLIC PANEL (NA, K, CL, CO2, GLUCOSE, BUN, CREATININE, CA)2021-11-01 10:40:12* Test Item Value Reference Range Interpretation Comme nts NA (test code = 9498903442) 136 mmol/L 135-145 K (test code = 1653730759) 4.2 mmol/L 3.5-5.0 CL (test code = 2513493728) 104 mmol/L 98-108 CO2 TOTAL (test code = 5923048734) 31 mmol/L 23-31 AGAP (test code = 5936521441) 2-16 L BUN (test code = 2600052621) 15 mg/dL 7-23 GLUCOSE (test code = 8434922948) 91 mg/dL 70-110 CREATININE (test code = 6967558065) 0.96 mg/dL 0.60-1.25 CALCIUM (test code = 4044431011) 8.5 mg/dL 8.6-10.6 L eGFR (test code = 6224973685) mL/min/1.73m2 KRYSTLE (test code = KRYSTLE) Association [...] imaging tests). Lab Interpretation (test code = 75945-7) Abnormal [facility] HospitalMAGNESIUM2022-02-18 10:40:12* Test Item Value Reference Range Interpretation Comme nts MAGNESIUM (test code = 6683756480) 1.7 mg/dL 1.7-2.4 Lab Interpretation (test cod e = 41232-3) Normal [facility] HospitalPHOSPHORUS2022-02-18 10:39:52* Test Item Value Reference Range Interpretation Comme nts PHOSPHORUS (test code = 0087421516) 4.4 mg/dL 2.5-5.0 Lab Interpretation (test cod e = 19185-3) Normal [facility]CBC WITH [id number] 10:25:11* Test Item Value Reference Range Interpretation [...] 34.3 g/dL 31.2-35.0 RDW-SD (test code = 15880-7) 38.5 fL 38.5-51.6 RDW-CV (test code = 788-0) 12.3 % 12.1-15.4 PLT (test code = 777-3) See_Comment [Automated messa ge] The system which generated this result transmitted reference range: 150 - 328 10*3/?L. The reference range was not used to interpret this result as normal/abnormal. MPV (test code = 25080-8) 9.6 fL 9.8-13.0 L NRBC/100 WBC (test code = 2862816513) See_Comment [Automated Freta.lá ssage] The system which generated this result transmitted reference range: 0.0 - 10.0 /100 WBCs. The reference range was not used to interpret this result as normal/abnormal. NRBC x10^3 (test code = 9576134179) <0.01 See_Comment [Automated messa ge] The system which generated this result transmitted reference range: 10*3/?L. The reference range was not used to interpret this result as normal/abnormal. GRAN MAT (NEUT) % (test code = 770-8) 49.5 % IMM GRAN % (test code = 0216336291) 0.30 % LYMPH % (test code = 736-9) 39.4 % MONO % (test code = 5905-5) 9.7 % EOS % (test code = 713-8) 0.8 % BASO % (test code = 706-2) 0.3 % GRAN MAT x10^3(ANC) (test code = 8590109844) 3.13 10*3/uL 1.99-6.95 IMM GRAN x10^3 (test code = 9096438795) <0.03 0.00-0.06 LYMPH x10^3 (test code = 731-0) 2.49 10*3/uL 1.09-3.23 MONO x10^3 (test code = 742-7) 0.61 10*3/uL 0.36-1.02 EOS x10^3 (test code = 711-2) 0.05 10*3/uL 0.06-0.53 L BASO x10^3 (test code = 704-7) <0.03 0.01-0.09 Lab Interpretation (test code = 41645-1) Abnormal [facility]-TERMINAL [id number]-[id number] 17:32:56* Test Item Value Reference Range Interpretation Comme nts NT-proBNP (test code = 2466006919) 13 pg/mL See_Comment [Automated message] The system which generated this result transmitted reference range: <=125. The reference range was not used to interpret this result as normal/abnormal. KRYSTLE (test code = KRYSTLE) Biotin has been reported to cause a negative bias, interpret results relative to patient's use of biotin. Lab Interpretation (test code = 87611-8) Normal [facility]MINAL [id number] 10:50:49* Test Item Value Reference Range Interpretation Comme nts NT-proBNP (test code = 7964697068) <11 See_Comment [Automated message] The system which generated this result transmitted reference range: <=125 pg/mL. The reference range was not used to interpret this result as normal/abnormal. KRYSTLE (test code = KRYSTLE) Biotin has been reported to cause a negative bias, interpret results relative to patient's use of biotin. Lab Interpretation (test code = 33069-2) Normal [facility] HospitalTROPONIN [id number] 10:36:56* Test Item Value Reference Range Interpretation Comments TROPONIN I (test code = 8463476093) 0.004 ng/mL See_Comment [Automated message] The system [...] of biotin. Lab Interpretation (test code = 29766-5) Normal [facility]OLIC PANEL (79170)2021-10-31 10:33:50* Test Item Value Reference Range Interpretation Comme nts NA (test code = 2266764278) 139 mmol/L 135-145 K (test code = 1178823630) 4.0 mmol/L 3.5-5.0 CL (test code = 4450168245) 109 mmol/L 98-108 H CO2 TOTAL (test code = 9041525456) 27 mmol/L 23-31 AGAP (test code = 5889474911) 2-16 BUN (test code = 6054930592) 16 mg/dL 7-23 GLUCOSE (test code = 4256140071) 97 mg/dL 70-110 CREATININE (test code = 2247293181) 1.00 mg/dL 0.60-1.25 TOTAL BILI (test code = 4324883816) 1.0 mg/dL 0.1-1.1 CALCIUM (test code = 2204784447) 8.7 mg/dL 8.6-10.6 T PROTEIN (test code = 4116453354) 7.9 g/dL 6.3-8.2 ALBUMIN (test code = 2734456628) 4.4 g/dL 3.5-5.0 ALK PHOS (test code = 5623471556) 60 U/L 34-122 ALTv (test code = 1742-6) 56 U/L 5-50 H AST(SGOT) (test code = 4593742584) 49 U/L 13-40 H eGFR (test code = 4281269299) mL/min/1.73m2 KRYSTLE (test code = KRYSTLE) Association [...] imaging tests). Lab Interpretation (test code = 22178-8) Abnormal [facility] HospitalMagnesium Kpjyy6747-37-75 10:25:32* Test Item Value Reference Range Interpretation Comme nts MAGNESIUM (test code = 9069724954) 1.8 mg/dL 1.7-2.4 Lab Interpretation (test cod e = 95415-1) Normal [facility]PH[facility]US2022-02-17 10:25:12* Test Item Value Reference Range Interpretation Comme nts PHOSPHORUS (test code = 3587169231) 3.9 mg/dL 2.5-5.0 Lab Interpretation (test cod e = 14774-0) Normal [facility] HospitalCREATINE [id number] 10:24:52* Test Item Value Reference Range Interpretation Comme nts CK (test code = 6708386114) 215 U/L 33-194 H Lab Interpretation (test cod e = 29107-4) Abnormal [facility] HospitalCB with Wzocbdinjqvn7111-03-25 10:18:09* Test Item Value Reference Range Interpretation Comme nts WBC (test code = 6690-2) See_Comment [Automated [employer] ge] The system which generated this result transmitted reference range: 4.20 - 10.70 10*3/?L. The reference range was not used to interpret this result as normal/abnormal. RBC (test code = 789-8) See_Comment [Automated [employer] ge] The system which generated this result [...] 33.9 g/dL 31.2-35.0 RDW-SD (test code = 49992-9) 41.3 fL 38.5-51.6 RDW-CV (test code = 788-0) 13.0 % 12.1-15.4 PLT (test code = 777-3) See_Comment [Automated messa ge] The system which generated this result transmitted reference range: 150 - 328 10*3/?L. The reference range was not used to interpret this result as normal/abnormal. MPV (test code = 29303-2) 10.0 fL 9.8-13.0 NRBC/100 WBC (test code = 8340970563) See_Comment [Automated me ssage] The system which generated this result transmitted reference range: 0.0 - 10.0 /100 WBCs. The reference range was not used to interpret this result as normal/abnormal. NRBC x10^3 (test code = 6693996604) <0.01 See_Comment [Automated messa ge] The system which generated this result transmitted reference range: 10*3/?L. The reference range was not used to interpret this result as normal/abnormal. GRAN MAT (NEUT) % (test code = 770-8) 46.4 % IMM GRAN % (test code = 0164137745) 0.20 % LYMPH % (test code = 736-9) 44.0 % MONO % (test code = 5905-5) 8.3 % EOS % (test code = 713-8) 0.7 % BASO % (test code = 706-2) 0.4 % GRAN MAT x10^3(ANC) (test code = 5513534481) 3.73 10*3/uL 1.99-6.95 IMM GRAN x10^3 (test code = 9281711111) <0.03 0.00-0.06 LYMPH x10^3 (test code = 731-0) 3.55 10*3/uL 1.09-3.23 H MONO x10^3 (test code = 742-7) 0.67 10*3/uL 0.36-1.02 EOS x10^3 (test code = 711-2) 0.06 10*3/uL 0.06-0.53 BASO x10^3 (test code = 704-7) 0.03 10*3/uL 0.01-0.09 Lab Interpretation (test code = 48362-0) Abnormal [facility] HospitalPROTHROMBIN TIME / [id number] 10:18:09* Test Item Value Reference Range Interpretation Comme nts PROTIME PATIENT (test code = 5964-2) See_Comment [Automated [employer]] The system which generated this result transmitted reference range: 12.0 - 14.7 Seconds. The reference range was not used to interpret this result as normal/abnormal. INR (test code = 6301-6) Normal INR <1.1; Warfarin Therapeutic range 2.0 to 3.0 or 2.5 to 3.5, depending upon the indications. Lab Interpretation (test code = 70727-9) [facility] [id number] 07:43:50* Test Item Value Reference Range Interpretation Comments TROPONIN I (test code = 2760992220) 0.005 ng/mL See_Comment [Automated message] The system [...] of biotin. Lab Interpretation (test code = 96675-0) [facility] (73796)2021-10-30 20:56:25* Test Item Value Reference Range Interpretation Comme nts NA (test code = 9564671961) 139 mmol/L 135-145 K (test code = 9564406194) 4.8 mmol/L 3.5-5.0 CL (test code = 4943633982) 105 mmol/L 98-108 CO2 TOTAL (test code = 4745231151) 26 mmol/L 23-31 AGAP (test code = 2747589174) 2-16 BUN (test code = 5982402966) 18 mg/dL 7-23 GLUCOSE (test code = 0166523251) 135 mg/dL 70-110 H CREATININE (test code = 5362398875) 0.98 mg/dL 0.60-1.25 TOTAL BILI (test code = 2298425091) 0.8 mg/dL 0.1-1.1 CALCIUM (test code = 2681818893) 10.0 mg/dL 8.6-10.6 T PROTEIN (test code = 5001894174) 10.3 g/dL 6.3-8.2 H ALBUMIN (test code = 5318923063) 5.5 g/dL 3.5-5.0 H ALK PHOS (test code = 8531658553) 74 U/L 34-122 ALTv (test code = 1742-6) 69 U/L 5-50 H AST(SGOT) (test code = 1946766730) 59 U/L 13-40 H eGFR (test code = 1945505626) mL/min/1.73m2 KRYSTLE (test code = KRYSTLE) Association [...] imaging tests). Lab Interpretation (test code = 03322-8) [facility]56[facility]05* Test Item Value Reference Range Interpretation Comme nts LIPASE (test code = 3212570942) 70 U/L 0-220 Lab Interpretation (test cod e = 70080-1) [facility] WITH [id number] 20:34:20* Test Item Value Reference Range Interpretation [...] 34.3 g/dL 31.2-35.0 RDW-SD (test code = 16695-5) 40.6 fL 38.5-51.6 RDW-CV (test code = 788-0) 12.8 % 12.1-15.4 PLT (test code = 777-3) See_Comment [Automated messa ge] The system which generated this result transmitted reference range: 150 - 328 10*3/?L. The reference range was not used to interpret this result as normal/abnormal. MPV (test code = 49689-1) 9.2 fL 9.8-13.0 L NRBC/100 WBC (test code = 1047791629) See_Comment [Automated Freta.lá ssage] The system which generated this result transmitted reference range: 0.0 - 10.0 /100 WBCs. The reference range was not used to interpret this result as normal/abnormal. NRBC x10^3 (test code = 9117879091) <0.01 See_Comment [Automated messa ge] The system which generated this result transmitted reference range: 10*3/?L. The reference range was not used to interpret this result as normal/abnormal. GRAN MAT (NEUT) % (test code = 770-8) 67.1 % IMM GRAN % (test code = 4008790615) 0.40 % LYMPH % (test code = 736-9) 24.5 % MONO % (test code = 5905-5) 7.6 % EOS % (test code = 713-8) 0.1 % BASO % (test code = 706-2) 0.3 % GRAN MAT x10^3(ANC) (test code = 5288456881) 7.34 10*3/uL 1.99-6.95 H IMM GRAN x10^3 (test code = 1925084760) 0.04 10*3/uL 0.00-0.06 LYMPH x10^3 (test code = 731-0) 2.67 10*3/uL 1.09-3.23 MONO x10^3 (test code = 742-7) 0.83 10*3/uL 0.36-1.02 EOS x10^3 (test code = 711-2) <0.03 0.06-0.53 L BASO x10^3 (test code = 704-7) 0.03 10*3/uL 0.01-0.09 Lab Interpretation (test code = 81547-8) [facility]normal [facility]CREAT[facility] [id number] 05:55:54* Test Item Value Reference Range Interpretation Comme nts CK (test code = 5053219693) 3682 U/L 33-194 H Lab Interpretation (test cod e = 57929-1) Abnormal [facility]CREAT[facility] [id number] 05:55:54* Test Item Value Reference Range Interpretation Comme nts CK (test code = 2504691593) 3682 U/L 33-194 H Lab Interpretation (test cod e = 93196-6) [facility] METABOLIC PANEL (NA, K, CL, CO2, GLUCOSE, BUN, CREATININE, CA)2021-05-24 05:02:27* Test Item Value Reference Range Interpretation Comme nts NA (test code = 1213451361) 137 mmol/L 135-145 K (test code = 2717883308) 3.6 mmol/L 3.5-5.0 CL (test code = 4846118079) 105 mmol/L 98-108 CO2 TOTAL (test code = 1379711159) 23 mmol/L 23-31 AGAP (test code = 2890013743) 2-16 BUN (test code = 7490506387) 26 mg/dL 7-23 H GLUCOSE (test code = 8986103866) 95 mg/dL 70-110 CREATININE (test code = 2839822594) 1.31 mg/dL 0.60-1.25 H CALCIUM (test code = 9878331029) 8.6 mg/dL 8.6-10.6 eGFR (test code = 0229133393) mL/min/1.73m2 KRYSTLE (test code = KRYSTLE) Association [...] imaging tests). Lab Interpretation (test code = 80695-8) [facility] (NA, K, CL, CO2, GLUCOSE, BUN, CREATININE, CA)2021-05-24 05:02:27* Test Item Value Reference Range Interpretation Comme nts NA (test code = 2220357731) 137 mmol/L 135-145 K (test code = 7027191823) 3.6 mmol/L 3.5-5.0 CL (test code = 9820037083) 105 mmol/L 98-108 CO2 TOTAL (test code = 6850990917) 23 mmol/L 23-31 AGAP (test code = 9581482990) 2-16 BUN (test code = 2451654506) 26 mg/dL 7-23 H GLUCOSE (test code = 3352035254) 95 mg/dL 70-110 CREATININE (test code = 8132535450) 1.31 mg/dL 0.60-1.25 H CALCIUM (test code = 9033659037) 8.6 mg/dL 8.6-10.6 eGFR (test code = 0893805788) mL/min/1.73m2 KRYSTLE (test code = KRYSTLE) Association [...] imaging tests). Lab Interpretation (test code = 73255-5) Abnormal [facility] [id number] 02:56:10* Test Item Value Reference Range Interpretation Comments TROPONIN I (test code = 4820892589) 0.004 ng/mL See_Comment [Automated message] The system [...] of biotin. Lab Interpretation (test code = 13140-0) Normal [facility] [id number] 02:56:10* Test Item Value Reference Range Interpretation Comments TROPONIN I (test code = 8402705562) 0.004 ng/mL See_Comment [Automated message] The system [...] of biotin. Lab Interpretation (test code = 04219-9) Normal [facility] HospitalCREAT[facility] [id number] 02:41:54* Test Item Value Reference Range Interpretation Comme nts CK (test code = 3896735747) 4607 U/L 33-194 H Lab Interpretation (test cod e = 66017-1) Abnormal [facility] [id number] 02:41:54* Test Item Value Reference Range Interpretation Comme nts CK (test code = 4769193379) 4607 U/L 33-194 H Lab Interpretation (test cod e = 65450-9) Abnormal [facility] HospitalN-TERMINAL [id number] 02:33:28* Test Item Value Reference Range Interpretation Comme nts NT-proBNP (test code = 5254849236) 14 pg/mL See_Comment [Automated message] The system which generated this result transmitted reference range: <=125. The reference range was not used to interpret this result as normal/abnormal. KRYSTLE (test code = KRYSTLE) Biotin has been reported to cause a negative bias, interpret results relative to patient's use of biotin. Lab Interpretation (test code = 26468-0) Normal [facility]MINAL [id number] 02:33:28* Test Item Value Reference Range Interpretation Comme nts NT-proBNP (test code = 5274249511) 14 pg/mL See_Comment [Automated message] The system which generated this result transmitted reference range: <=125. The reference range was not used to interpret this result as normal/abnormal. KRYSTLE (test code = KRYSTLE) Biotin has been reported to cause a negative bias, interpret results relative to patient's use of biotin. Lab Interpretation (test code = 34467-3) Normal [facility] HospitalURINALYSIS2021-09-10 02:29:35* Test Item Value Reference Range Interpretation Comme nts APPEARANCE (test code = 5434069628) Clear Clear COLOR (test code = 0437052330) Yellow Yellow PH (test code = 0784632800) 4.8-8.0 SP GRAVITY (test code = 9693836958) 1.003-1.030 GLU U QUAL (test code = 3698274665) Normal Normal BLOOD (test code = 7070214460) Negative Negative KETONES (test code = 6063737955) Negative Negative PROTEIN (test code = 2887-8) Negative Negative UROBILIN (test code = 1485386916) 2.0 mg/dL Normal A BILIRUBIN (test code = 0406391678) Negative Negative NITRITE (test code = 9294964081) Negative Negative LEUK MO (test code = 3270552848) Negative Negative RBC/HPF (test code = 8251696296) See_Comment [Automated OpenSpacea ge] The system which generated this result transmitted reference range: 0 - 3 HPF. The reference range was not used to interpret this result as normal/abnormal. WBC/HPF (test code = 0193737393) See_Comment [Automated [employer] ge] The system which generated this result transmitted reference range: 0 - 5 HPF. The reference range was not used to interpret this result as normal/abnormal. BACTERIA (test code = 0683343218) Negative Negative MUCOUS (test code = 3476614588) Slight Negative LPF A SQ EPITH (test code = 7229608026) <1 HPF Lab Interpretation (test code = 26077-9) Abnormal [facility]URINALYSIS2021-09-10 02:29:35* Test Item Value Reference Range Interpretation Comme nts APPEARANCE (test code = 1415847906) Clear Clear COLOR (test code = 0205393053) Yellow Yellow PH (test code = 1498105171) 4.8-8.0 SP GRAVITY (test code = 7271924783) 1.003-1.030 GLU U QUAL (test code = 5764986157) Normal Normal BLOOD (test code = 7125725236) Negative Negative KETONES (test code = 8466671578) Negative Negative PROTEIN (test code = 2887-8) Negative Negative UROBILIN (test code = 6112468152) 2.0 mg/dL Normal A BILIRUBIN (test code = 0823045254) Negative Negative NITRITE (test code = 9639135216) Negative Negative LEUK MO (test code = 8536010071) Negative Negative RBC/HPF (test code = 6330312437) See_Comment [Automated messa ge] The system which generated this result transmitted reference range: 0 - 3 HPF. The reference range was not used to interpret this result as normal/abnormal. WBC/HPF (test code = 0277886300) See_Comment [Automated messa ge] The system which generated this result transmitted reference range: 0 - 5 HPF. The reference range was not used to interpret this result as normal/abnormal. BACTERIA (test code = 5318243591) Negative Negative MUCOUS (test code = 0457160376) Slight Negative LPF A SQ EPITH (test code = 8827536505) <1 HPF Lab Interpretation (test code = 81630-4) Abnormal [facility]. METABOLIC PANEL (26212)2021-05-24 02:25:07* Test Item Value Reference Range Interpretation Comme nts NA (test code = 4750751570) 137 mmol/L 135-145 K (test code = 5656286600) 3.1 mmol/L 3.5-5.0 L CL (test code = 9583767203) 102 mmol/L 98-108 CO2 TOTAL (test code = 6819484576) 22 mmol/L 23-31 L AGAP (test code = 5401552493) 2-16 BUN (test code = 5924882444) 28 mg/dL 7-23 H GLUCOSE (test code = 6990616565) 132 mg/dL 70-110 H CREATININE (test code = 3425211458) 1.77 mg/dL 0.60-1.25 H TOTAL BILI (test code = 7860104730) 1.0 mg/dL 0.1-1.1 CALCIUM (test code = 7643578964) 9.4 mg/dL 8.6-10.6 T PROTEIN (test code = 8016806422) 9.4 g/dL 6.3-8.2 H ALBUMIN (test code = 8630178507) 5.0 g/dL 3.5-5.0 ALK PHOS (test code = 6289765825) 79 U/L 34-122 ALTv (test code = 1742-6) 112 U/L 5-50 H AST(SGOT) (test code = 4990847345) 152 U/L 13-40 H eGFR (test code = 3583679028) mL/min/1.73m2 KRYSTLE (test code = KRYSTLE) Association [...] imaging tests). Lab Interpretation (test code = 83041-1) Abnormal [facility]. METABOLIC PANEL (07777)2021-05-24 02:25:07* Test Item Value Reference Range Interpretation Comme nts NA (test code = 7479001816) 137 mmol/L 135-145 K (test code = 5968364511) 3.1 mmol/L 3.5-5.0 L CL (test code = 8453887883) 102 mmol/L 98-108 CO2 TOTAL (test code = 5726153341) 22 mmol/L 23-31 L AGAP (test code = 8341779866) 2-16 BUN (test code = 8460109644) 28 mg/dL 7-23 H GLUCOSE (test code = 5848581427) 132 mg/dL 70-110 H CREATININE (test code = 3388217800) 1.77 mg/dL 0.60-1.25 H TOTAL BILI (test code = 5103866941) 1.0 mg/dL 0.1-1.1 CALCIUM (test code = 7881320970) 9.4 mg/dL 8.6-10.6 T PROTEIN (test code = 2486132792) 9.4 g/dL 6.3-8.2 H ALBUMIN (test code = 0732145831) 5.0 g/dL 3.5-5.0 ALK PHOS (test code = 2766330092) 79 U/L 34-122 ALTv (test code = 1742-6) 112 U/L 5-50 H AST(SGOT) (test code = 0372492376) 152 U/L 13-40 H eGFR (test code = 1462230761) mL/min/1.73m2 KRYSTLE (test code = KRYSTLE) Association [...] imaging tests). Lab Interpretation (test code = 36410-4) Abnormal [facility] WITH [id number] 02:03:22* Test Item Value Reference Range Interpretation Comme nts WBC (test code = 6690-2) See_Comment [Automated OpenSpacea ge] The system which generated this result transmitted reference range: 4.20 - 10.70 10*3/?L. The reference range was not used to interpret this result as normal/abnormal. RBC (test code = 789-8) See_Comment [Automated OpenSpacea ge] The system which generated this result [...] g/dL 31.2-35.0 H RDW-SD (test code = 69649-0) 39.7 fL 38.5-51.6 RDW-CV (test code = 788-0) 12.7 % 12.1-15.4 PLT (test code = 777-3) See_Comment [Automated OpenSpacea ge] The system which generated this result transmitted reference range: 150 - 328 10*3/?L. The reference range was not used to interpret this result as normal/abnormal. MPV (test code = 22248-5) 9.7 fL 9.8-13.0 L NRBC/100 WBC (test code = 9299983426) See_Comment [Automated Freta.lá ssage] The system which generated this result transmitted reference range: 0.0 - 10.0 /100 WBCs. The reference range was not used to interpret this result as normal/abnormal. NRBC x10^3 (test code = 7439876634) <0.01 See_Comment [Automated OpenSpacea ge] The system which generated this result transmitted reference range: 10*3/?L. The reference range was not used to interpret this result as normal/abnormal. GRAN MAT (NEUT) % (test code = 770-8) 45.9 % IMM GRAN % (test code = 8901510674) 0.20 % LYMPH % (test code = 736-9) 41.7 % MONO % (test code = 5905-5) 11.6 % EOS % (test code = 713-8) 0.3 % BASO % (test code = 706-2) 0.3 % GRAN MAT x10^3(ANC) (test code = 4694689274) 3.95 10*3/uL 1.99-6.95 IMM GRAN x10^3 (test code = 1517175749) <0.03 0.00-0.06 LYMPH x10^3 (test code = 731-0) 3.60 10*3/uL 1.09-3.23 H MONO x10^3 (test code = 742-7) 1.00 10*3/uL 0.36-1.02 EOS x10^3 (test code = 711-2) 0.03 10*3/uL 0.06-0.53 L BASO x10^3 (test code = 704-7) 0.03 10*3/uL 0.01-0.09 Lab Interpretation (test code = 07956-8) Abnormal [facility] WITH [id number] 02:03:22* Test Item Value Reference Range Interpretation Comme nts WBC (test code = 6690-2) See_Comment [Automated OpenSpacea ge] The system which generated this result transmitted reference range: 4.20 - 10.70 10*3/?L. The reference range was not used to interpret this result as normal/abnormal. RBC (test code = 789-8) See_Comment [Automated OpenSpacea ge] The system which generated this result [...] g/dL 31.2-35.0 H RDW-SD (test code = 56541-3) 39.7 fL 38.5-51.6 RDW-CV (test code = 788-0) 12.7 % 12.1-15.4 PLT (test code = 777-3) See_Comment [Automated messa ge] The system which generated this result transmitted reference range: 150 - 328 10*3/?L. The reference range was not used to interpret this result as normal/abnormal. MPV (test code = 79132-6) 9.7 fL 9.8-13.0 L NRBC/100 WBC (test code = 9296036368) See_Comment [Automated Freta.lá ssage] The system which generated this result transmitted reference range: 0.0 - 10.0 /100 WBCs. The reference range was not used to interpret this result as normal/abnormal. NRBC x10^3 (test code = 1837314190) <0.01 See_Comment [Automated messa ge] The system which generated this result transmitted reference range: 10*3/?L. The reference range was not used to interpret this result as normal/abnormal. GRAN MAT (NEUT) % (test code = 770-8) 45.9 % IMM GRAN % (test code = 6850599249) 0.20 % LYMPH % (test code = 736-9) 41.7 % MONO % (test code = 5905-5) 11.6 % EOS % (test code = 713-8) 0.3 % BASO % (test code = 706-2) 0.3 % GRAN MAT x10^3(ANC) (test code = 3446492164) 3.95 10*3/uL 1.99-6.95 IMM GRAN x10^3 (test code = 1253723608) <0.03 0.00-0.06 LYMPH x10^3 (test code = 731-0) 3.60 10*3/uL 1.09-3.23 H MONO x10^3 (test code = 742-7) 1.00 10*3/uL 0.36-1.02 EOS x10^3 (test code = 711-2) 0.03 10*3/uL 0.06-0.53 L BASO x10^3 (test code = 704-7) 0.03 10*3/uL 0.01-0.09 Lab Interpretation (test code = 75677-6) Abnormal [facility]- (ID NOW RAPID TESTING)2021-05-02 00:31:00* Test Item Value Reference Range Interpretation Comme nts SARS-CoV-2 Rapid ID NOW (test code = 36052-9) Not Detected Not Detected KRYSTLE (test code = KRYSTLE) ID NOW COVID-19 As say is an isothermal nucleic acid amplification test intended for the qualitative detection of nucleic acid from SARS-CoV-2 viral RNA in nasopharyngeal ([employer]) specimens. It is used under Emergency Use [...] clinically indicated. Lab Interpretation (test code = 56142-7) Normal [facility] STREP SCREEN FOR GROUP [id number] 00:25:45* Test Item Value Reference Range Interpretation Comme nts Streptococcus pyogenes (grou p A) antigen (test code = 89583-7) Negative Negative Lab Interpretation (test cod e = 35490-8) Normal [facility]- (ID NOW RAPID TESTING)2021-04-02 01:41:42* Test Item Value Reference Range Interpretation Comme nts SARS-CoV-2 Rapid ID NOW (test code = 43384-7) Not Detected Not Detected KRYSTLE (test code = KRYSTLE) ID NOW COVID-19 As say is an isothermal nucleic acid amplification test intended for the qualitative detection of nucleic acid from SARS-CoV-2 viral RNA in nasopharyngeal ([employer]IVER) specimens. It is used under Emergency Use [...] clinically indicated. Lab Interpretation (test code = 83685-6) [facility] GROUP [id number] 01:39:31* Test Item Value Reference Range Interpretation Comme nts Streptococcus pyogenes (grou p A) antigen (test code = 30014-7) Negative Negative Lab Interpretation (test cod e = 37846-6) [facility]ST 3+ VW [id number] 02:41:03 Impression: No acute osseous abnormality. AFC: [id number] of Report Exam: XR WRIST 3+ [...] soft tissue edema.IMPRESSIONImpression: No acute osseous abnormality.AFC: [id number] of Report [facility] 01:32:01* Test Item Value Reference Range Interpretation Comme nts APPEARANCE (test code = 4922940943) Clear Clear COLOR (test code = 2900705669) Yellow Yellow PH (test code = 8277525868) 4.8-8.0 SP GRAVITY (test code = 1255969430) 1.003-1.030 GLU U QUAL (test code = 5199981642) Normal Normal BLOOD (test code = 5016521064) Negative Negative KETONES (test code = 6835875784) Negative Negative PROTEIN (test code = 2887-8) Negative Negative UROBILIN (test code = 7219792294) 2.0 mg/dL Normal A BILIRUBIN (test code = 6480487584) Negative Negative NITRITE (test code = 4706922794) Negative Negative LEUK MO (test code = 2366429325) Negative Negative RBC/HPF (test code = 8228185983) See_Comment [Automated OpenSpacea ge] The system which generated this result transmitted reference range: 0 - 3 HPF. The reference range was not used to interpret this result as normal/abnormal. WBC/HPF (test code = 2400576860) See_Comment [Automated [employer]Spacea ge] The system which generated this result transmitted reference range: 0 - 5 HPF. The reference range was not used to interpret this result as normal/abnormal. BACTERIA (test code = 1751627937) Few Negative A MUCOUS (test code = 3075205485) Slight Negative LPF A SQ EPITH (test code = 4752887851) <1 HPF Lab Interpretation (test code = 22020-4) [facility]ST 1 [id number] 04:09:05Impression: Mild thickening of the sol of the central airways, possibly reflectinginfectious or inflammatory bronchitis. RL: 460 AFC: [id number] Ordering physician: DARNELL HSU Indication: Cough and [...] airways, possibly reflectinginfectious or inflammatory bronchitis.RL: 460AF: [id number] signed byMarisol Manzo MD, PhD at 11/14/2020 10:09 PM [facility] HospitalCOMPRE[facility]IVE METABOLIC [id number] 00:00:00* Test Item Value Reference Range Interpretation Comme nts GLUCOSE (test code = 2217) 101 MG/DL BUN (test code = 2208) 11 MG/DL CREATININE (test code = 2214) 0.88 MG/DL eGFR AMER. (test cod e = 11102) 118 ML/MIN/1.73 eGFR NON- AMER. (test code = 98617) 102 ML/MIN/1.73 CALC BUN/CREAT (test code = [...] (test code = 2219) 88 U/L N-TERMINAL [id number] 15:43:00* Test Item Value Reference Range Interpretation Comme nts NT-proBNP (test code = 6091303156) <11 See_Comment [Automated message] The system which generated this result transmitted reference range: <=125 pg/mL. The reference range was not used to interpret this result as normal/abnormal. KRYSTLE (test code = KRYSTLE) Biotin has been reported to cause a negative bias, interpret results relative to patient's use of biotin. Lab Interpretation (test code = 47620-4) Normal [facility] WITH [id number] 15:27:00* Test Item Value Reference Range Interpretation Comme nts WBC (test code = 6690-2) See_Comment [Automated [employer]] The system which generated this result transmitted reference range: 4.20 - 10.70 10*3/?L. The reference range was not used to interpret this result as normal/abnormal. RBC (test code = 789-8) See_Comment [Automated [employer]] The system which generated this result transmitted [...] g/dL 31.2-35 H RDW-SD (test code = 84955-3) 37.3 fL 38.5-51.6 L RDW-CV (test code = 788-0) 11.9 % 12.1-15.4 L PLT (test code = 777-3) See_Comment [Automated [employer]] The system which generated this result transmitted reference range: 150 - 328 10*3/?L. The reference range was not used to interpret this result as normal/abnormal. MPV (test code = 68770-4) 9.7 fL 9.8-13 L NRBC/100 WBC (test code = 9736004745) See_Comment [Automated me ssage] The system which generated this result transmitted reference range: 0.0 - 10.0 /100 WBCs. The reference range was not used to interpret this result as normal/abnormal. NRBC x10^3 (test code = 2808837686) <0.01 See_Comment [Automated messa ge] The system which generated this result transmitted reference range: 10*3/?L. The reference range was not used to interpret this result as normal/abnormal. GRAN MAT (NEUT) % (test code = 770-8) 29.2 % IMM GRAN % (test code = 2080827337) 0.20 % LYMPH % (test code = 736-9) 59.0 % MONO % (test code = 5905-5) 10.1 % EOS % (test code = 713-8) 1.1 % BASO % (test code = 706-2) 0.4 % GRAN MAT x10^3(ANC) (test code = 7940058610) 1.57 10*3/uL 1.99-6.95 L IMM GRAN x10^3 (test code = 9401189153) <0.03 0-0.06 LYMPH x10^3 (test code = 731-0) 3.17 10*3/uL 1.09-3.23 MONO x10^3 (test code = 742-7) 0.54 10*3/uL 0.36-1.02 EOS x10^3 (test code = 711-2) 0.06 10*3/uL 0.06-0.53 BASO x10^3 (test code = 704-7) <0.03 0.01-0.09 Lab Interpretation (test code = 84807-2) [facility] 1 [id number] 15:13:32No acute cardiopulmonary process. Preliminary Report Dictated [...] have reviewed thisstudy and agree withthe above report.[facility] HospitalTROPONIN [id number] 14:59:00* Test Item Value Reference Range Interpretation Comme nts TROPONIN I (test code = 8016445411) <0.012 See_Comment [Automated message] The system which [...] biotin. ? Lab Interpretation (test code = 87062-6) Normal [facility]. METABOLIC PANEL (63814)2020-09-30 14:59:00* Test Item Value Reference Range Interpretation Comme nts NA (test code = 8691125089) 139 mmol/L 135-145 K (test code = 2676337088) 3.8 mmol/L 3.5-5 CL (test code = 4916650706) 103 mmol/L 98-108 CO2 TOTAL (test code = 4390227750) 26 mmol/L 23-31 AGAP (test code = 2151917409) 2-16 BUN (test code = 6966282475) 11 mg/dL 7-23 GLUCOSE (test code = 1837490780) 163 mg/dL 70-110 H CREATININE (test code = 3119744422) 0.85 mg/dL 0.6-1.25 TOTAL BILI (test code = 4763823228) 0.6 mg/dL 0.1-1.1 CALCIUM (test code = 5337228073) 9.0 mg/dL 8.6-10.6 T PROTEIN (test code = 3671539459) 8.0 g/dL 6.3-8.2 ALBUMIN (test code = 7992383094) 4.4 g/dL 3.5-5 ALK PHOS (test code = 6541859658) 75 U/L 34-122 ALTv (test code = 1742-6) 61 U/L 5-50 H AST(SGOT) (test code = 3368823128) 54 U/L 13-40 H eGFR Calculation (Non-) (test code = 1158668458) mL/min/1.73m2 eGFR Calculation () (test code = 2754429125) mL/min/1.73m2 KRYSTLE (test code = KRYSTLE) Association [...] imaging tests). Lab Interpretation (test code = 23207-4) Abnormal [facility] HospitalLIPASE, [id number] 14:59:00* Test Item Value Reference Range Interpretation Comme nts LIPASE (test code = 4175797493) 116 U/L 0-220 Lab Interpretation (test cod e = 64533-1) Normal [facility] HospitalTroponin [id number] 04:30:00* Test Item Value Reference Range Interpretation Comme nts TROPONIN I (test code = 4674346811) <0.012 See_Comment [Automated message] The system which [...] biotin. ? Lab Interpretation (test code = 55428-0) Normal [facility] HospitalComplete Metabolic [id number] 03:24:00* Test Item Value Reference Range Interpretation Comme nts NA (test code = 8432553048) 137 mmol/L 135-145 K (test code = 4286010447) 4.7 mmol/L 3.5-5 CL (test code = 9185307317) 101 mmol/L 98-108 CO2 TOTAL (test code = 0392667267) 27 mmol/L 23-31 AGAP (test code = 4315192647) 2-16 BUN (test code = 1950039144) 16 mg/dL 7-23 GLUCOSE (test code = 9342290116) 226 mg/dL 70-110 H CREATININE (test code = 1607384018) 1.13 mg/dL 0.6-1.25 TOTAL BILI (test code = 9364271934) 0.7 mg/dL 0.1-1.1 CALCIUM (test code = 3652953820) 9.3 mg/dL 8.6-10.6 T PROTEIN (test code = 4391936754) 7.8 g/dL 6.3-8.2 ALBUMIN (test code = [id number]) 3.9 g/dL 3.5-5 ALK PHOS (test code = 2329095168) 79 U/L 34-122 ALTv (test code = 1742-6) 62 U/L 5-50 H AST(SGOT) (test code = 8396563481) 49 U/L 13-40 H eGFR Calculation (Non-) (test code = 6694940289) mL/min/1.73m2 eGFR Calculation () (test code = 5431087961) mL/min/1.73m2 KRYSTLE (test code = KRYSTLE) Association [...] imaging tests). Lab Interpretation (test code = 69309-4) [facility] [id number] 03:23:00* Test Item Value Reference Range Interpretation Comme nts LIPASE (test code = 0821710682) 317 U/L 0-220 H Lab Interpretation (test cod e = 51727-5) [facility] with [id number] 03:21:00* Test Item Value Reference Range Interpretation Comme nts WBC (test code = 6690-2) See_Comment [Automated [employer]] The system which generated this result transmitted reference range: 4.20 - 10.70 10*3/?L. The reference range was not used to interpret this result as normal/abnormal. RBC (test code = 789-8) See_Comment [Automated [employer]] The system which generated this result transmitted [...] g/dL 31.2-35 H RDW-SD (test code = 49073-1) 37.9 fL 38.5-51.6 L RDW-CV (test code = 788-0) 12.4 % 12.1-15.4 PLT (test code = 777-3) See_Comment [Automated messa ge] The system which generated this result transmitted reference range: 150 - 328 10*3/?L. The reference range was not used to interpret this result as normal/abnormal. MPV (test code = 11291-6) 9.7 fL 9.8-13 L NRBC/100 WBC (test code = 6103978001) See_Comment [Automated [employer]] The system which generated this result transmitted reference range: 0.0 - 10.0 /100 WBCs. The reference range was not used to interpret this result as normal/abnormal. NRBC x10^3 (test code = 4908219908) <0.01 See_Comment [Automated messa ge] The system which generated this result transmitted reference range: 10*3/?L. The reference range was not used to interpret this result as normal/abnormal. GRAN MAT (NEUT) % (test code = 770-8) 36.7 % IMM GRAN % (test code = 5612528477) 0.10 % LYMPH % (test code = 736-9) 50.9 % MONO % (test code = 5905-5) 11.1 % EOS % (test code = 713-8) 0.8 % BASO % (test code = 706-2) 0.4 % GRAN MAT x10^3(ANC) (test code = 5337576236) 2.59 10*3/uL 1.99-6.95 IMM GRAN x10^3 (test code = 2197049291) <0.03 0-0.06 LYMPH x10^3 (test code = 731-0) 3.61 10*3/uL 1.09-3.23 H MONO x10^3 (test code = 742-7) 0.79 10*3/uL 0.36-1.02 EOS x10^3 (test code = 711-2) 0.06 10*3/uL 0.06-0.53 BASO x10^3 (test code = 704-7) 0.03 10*3/uL 0.01-0.09 Lab Interpretation (test code = 11334-4) Abnormal [facility] History and Physical Notes Date/Time Note Provider [...] 220). On a 12/2022 hospital stay at [facility], he was diagnosed with an [...] by mouth daily. 90 tablet 1 Pancrelipase, Qyl-Wyot-Tyeo, (Creon) 19544-93358 units oral Cap DR Particles Take 1 [...] He was getting medicinal marijuana while in [place] Sexual activity: Yes Partners: Male ROS: 06/27 [...] All questions were answered. Gibran Mcadams MD T [facility]
[2024-09-07] MEDS ORDERED: DIPHENHYDRAMINE 50 MG/ML VIAL ONE (15:24)
[2024-09-07] MEDS ORDERED: KETOROLAC 30 MG/ML INJ ONE (15:24)
[2024-09-07] MEDS ORDERED: METOCLOPRAMIDE 10 MG/2mL INJ ONE (15:24)
[2024-09-07] MEDS ORDERED: NA CHLORIDE 0.9% 1,000 ML ONE (15:24)
[2024-09-07 15:26] LABS: Absolute Eosinophils 0.1 K/uL (0-0.5); Absolute Monocytes 0.5 K/uL (0.1-1.3); Absolute Neutrophil 2.6 K/uL (1.8-8.0); Basophils % 0.3 % (0-1.3); Eosinophils % 1.5 % (0-4.4); Hematocrit 44.1 % (39.6-49.0); Hemoglobin 14.7 g/dL (13.6-17.9); Lymphocytes % 47.8 % (15.3-44.8); MCH 29.3 pg (27.0-35.0); MCHC 33.4 g/dL (32.0-36.0); MCV 87.7 fL (80-100); MPV 7.5 fL (7.6-11.3); Monocytes % 7.9 % (3.3-12.3); Neutrophils % 42.5 % (41.7-73.7); Nucleated Red Blood Cells % 0.1 % (0-0); Platelets 204 thou/uL (152-406); RBC Red Blood Cell Count 5.02 M/uL (4.33-5.43); Red Cell Distribution Width 13.3 % (12.1-15.2)
[2024-09-07 15:35] LABS: PT Prothrombin Time 12.8 SECONDS (9.4-12.5); Protime INR 1.15
[2024-09-07 15:47] LABS: ALT/SGPT 34 U/L (16-61); AST/SGOT 29 U/L (15-37); Albumin 3.7 g/dL (3.4-5.0); Albumin/Globulin Ratio 0.9 (1.1-1.8); Alkaline Phosphatase 58 U/L (45-117); Anion Gap 6.7 mEq/L (5.0-15.0); BUN Blood Urea Nitrogen 15 mg/dL (7-18); Bicarbonate 27 mEq/L (21-32); Bilirubin Direct < 0.2 mg/dL (0-0.2); Bilirubin Indirect, Calculated 0.2 mg/dL (0.2-0.8); Bilirubin Total 0.4 mg/dL (0.2-1.0); Globulin 4.1 g/dL (2.3-3.5); Glomerular Filtration Rate 75 ml/min (=/>90); Glucose Level 106 mg/dL (74-106); Lipase 25 U/L (13-75); NT PRO-BNP 82 pg/mL (<125); Potassium 3.7 mEq/L (3.5-5.1); Protein, Total 7.8 g/dL (6.4-8.2); Sodium Level 139 mEq/L (136-145); Troponin High Sensitivity 3.5 pg/mL (<58.9)
[2024-09-07] MEDS ORDERED: IPRATROPIUM BROM 0.5MG/2.5ML ONE (15:53)
[2024-09-07] MEDS ORDERED: METHYLPREDNISOLONE 125 MG INJ ONE ×2 (15:53→16:02)
[2024-09-07] MEDS ORDERED: ALBUTEROL 2.5 MG/3 ML NEB SOL ONE (15:53)
--- NOTE | 2024-09-07 15:53 | RAD REPORT ---
EXAMINATION: ONE VIEW CHEST XR CLINICAL INDICATION: Male, 53 years old.,CHEST PAIN TECHNIQUE: Frontal chest projection is submitted. Examination is limited by patient positioning and t echnique. COMPARISON: 08/05/2024 FINDINGS: The lungs are well inflated and clear. No pneumothorax or sizable effusion. The heart is normal in s ize. Mediastinal contours are unremarkable. IMPRESSION: No acute intrathoracic abnormalities.
--- NOTE | 2024-09-07 16:00 | ER ---
Nurse's Notes [facility] Name: Noah Putnam Age: 53 yrs Sex: Male : 1970 Arrival Date: 09/07/2024 Time: 14:59 Bed 19 Private MD: Diagnosis: Headache;Chest pain, unspecified;Shortness of breath Presentation: 09/07 15:07 Chief complaint: Patient states: woke up last night at 1230 and his chest was hurting, iw felt like stinging pain , he also has a left sided headache and nausea for a couple days. Coronavirus screen: At this time, the client does not indicate any symptoms associated with coronavirus-19. Ebola Screen: No symptoms or risks identified at this time. Initial Sepsis Screen: Does the patient meet any 2 criteria? No. Patient's initial sepsis screen is negative. Does the patient have a suspected source of infection? No. Patient's initial sepsis screen is negative. Risk Assessment: Do you want to hurt yourself or someone else? Patient reports no desire to harm self or others. Onset of symptoms was September 05, 2024. 15:07 Method Of Arrival: Ambulatory iw 15:07 Acuity: BREEZY 3 iw Historical: - Allergies: 15:09 Bee Venom; iw - PMHx: 15:09 chronic kidney disease; Chronic Pancreatitis; Herniated disc; Hypertension; iw - PSHx: 15:09 left arm surgery; iw - Immunization history:: Adult Immunizations up to date. - Infectious Disease History:: Denies. - Social history:: Smoking status: Patient denies any tobacco usage or history of. Screenin:17 [facility] ED Fall Risk Assessment (Adult) History of falling in the last 3 months, cm10 including since admission No falls in past 3 months (0 pts) Confusion or Disorientation No (0 pts) Intoxicated or Sedated No (0 pts) Impaired Gait No (0 pts) Mobility Assist Device Used No (0 pt) Altered Elimination No (0 pt) Score/Fall Risk Level 0 - 2 = Low Risk Oriented to surroundings, Maintained a safe environment, Hourly rounding (assess needs \T\ fall precautionary measures) done. Abuse screen: Denies threats or abuse. Denies injuries from another. Nutritional screening: No deficits noted. Tuberculosis screening: No symptoms or risk factors identified. Assessment: 15:18 General: Appears in no apparent distress. comfortable, Behavior is calm, cooperative, cm10 appropriate for age. Pain: Complains of pain in chest Pain does not radiate. Quality of pain is described as pinching, Pain began 2-3 days ago. Neuro: No deficits noted. Level of Consciousness is awake, alert, obeys commands, Oriented to person, place, time, situation, Appropriate for age. Cardiovascular: No deficits noted. Heart tones present Patient's skin is warm and dry. Respiratory: No deficits noted. Airway is patent Respiratory effort is even, unlabored, Respiratory pattern is regular, symmetrical, Breath sounds are clear bilaterally. 15:57 Reassessment: Upon going to medicate patient, patient states that he needs to leave. Pt cm10 states that his headache has improved. Provider made aware and speaking with pt. Pt reports that his ride is on their way. Vital Signs: 15:11 BP 171 / 98; Pulse 73; Resp 16; Temp 97.8; Pulse Ox 94% on R/A; iw 16:10 BP 154 / 97; Pulse 67; Resp 16; Pulse Ox 92% on R/A; cm10 ED Course: 15:01 Patient arrived in ED. ra3 15:02 Jimbo Galvan PA is PHCP. cp 15:03 Aram Bianchi MD is Attending Physician. cp 15:08 Triage completed. iw 15:09 Arm band placed on. iw 15:16 Josephine Petersen, RN is Primary Nurse. cm10 15:17 Patient has correct armband on for positive identification. Bed in low position. Call cm10 light in reach. Side rails up X 1. Provided Education on: ER process and procedures.. Client placed on continuous cardiac and pulse oximetry monitoring. NIBP monitoring applied. monitoring and evaluation advisor on. 15:21 Initial lab(s) drawn, by me, sent to lab. EKG done. Inserted saline lock: 20 gauge in tm3 right antecubital area, using aseptic technique. 15:32 XRAY Chest (1 view) In Process Unspecified. EDMS 16:11 No provider procedures requiring assistance completed. IV discontinued, intact, cm10 bleeding controlled, No redness/swelling at site. Pressure dressing applied. Patient maintains SpO2 saturation greater than 95% on room air. Administered Medications: 15:33 Drug: metoCLOPramide IVP 10 mg IVP once; over 1 to 2 minutes Route: IVP; Site: right cm10 antecubital; 16:10 Follow up: Response: No adverse reaction cm10 15:33 Drug: diphenhydrAMINE IVP 25 mg IVP once Route: IVP; Site: right antecubital; cm10 16:10 Follow up: Response: No adverse reaction cm10 15:33 Drug: Ketorolac IVP 15 mg IVP once Route: IVP; Site: right antecubital; cm10 16:10 Follow up: Response: No adverse reaction cm10 15:33 Drug: NS 0.9% IV 1000 ml IV at 1000 ml once; to be given as a bolus over 60 minutes cm10 Route: IV; Rate: 1000 ml; Site: right antecubital; 16:10 Follow up: Response: No adverse reaction; IV Status: Completed infusion; IV Intake: cm10 1000ml 15:56 Not Given (Patient Refused): DuoNeb Nebulize (2.5 mg - 0.5 mg) 3 ml Nebulizer once cm10 15:56 Not Given (Patient Refused): micxprxzjuzvnzrzug166 mg IVP once cm10 16:09 Drug: MethylPrednisoLONE IVP 125 mg IVP once Route: IVP; Site: right antecubital; cm10 16:10 Follow up: Response: Medication administered at discharge. cm10 Medication: 15:18 VIS not applicable for this client. cm10 Intake: 16:10 IV: 1000ml; Total: 1000ml. cm10 Outcome: 15:59 Discharge ordered by MD. cp 16:11 Discharged to home ambulatory, pt states ride is in parking lot cm10 16:11 Condition: good 16:11 Discharge instructions given to patient, Instructed on discharge instructions, follow up and referral plans. medication usage, Demonstrated understanding of instructions, follow-up care, medications, Prescriptions given X 2, 16:12 Patient left the ED. cm10 Signatures: Dispatcher [employer] EDMS Ronak Jarrett tm3 Brook Siddiqui RN RN iw Page, Corey, PA PA cp Martinez, Clarissa, RN RN cmMeron Frye ra3 Corrections: (The following items were deleted from the chart) 16:11 15:57 Reassessment: Upon going to medicate patient, patient states that he needs to cm10 leave. Pt states that his headache has improved. Provider made aware and speaking with pt. cm10
--- NOTE | 2024-09-07 16:00 | EDPHYS ---
Physician Documentation [facility] Name: Noah Putnam Age: 53 yrs Sex: Male : 1970 Arrival Date: 09/07/2024 Time: 14:59 Bed 19 Private MD: ED Physician Aram Bianchi HPI: 09/07 15:10 This 53 yrs old Black Male presents to ER via Ambulatory with complaints of Chest Pain, cp Headache. 15:10 The patient or guardian reports chest pain that is located primarily in the anterior cp chest wall, left. Onset: this morning, awoke patient at 0030. Associated signs and symptoms: Pertinent positives: blurred vision, left sided headache and nausea for past couple days. 15:10 Severity of symptoms: in the emergency department the pain is unchanged, despite home cp interventions. Headache History: Other history of headaches but this headache not relieved with prescribed medications. The chest pain is described as stinging. Duration: The patient or guardian reports a single episode, that is still ongoing, and unchanged. Historical: - Allergies: 15:09 Bee Venom; iw - PMHx: 15:09 chronic kidney disease; Chronic Pancreatitis; Herniated disc; Hypertension; iw - PSHx: 15:09 left arm surgery; iw - Immunization history:: Adult Immunizations up to date. - Infectious Disease History:: Denies. - Social history:: Smoking status: Patient denies any tobacco usage or history of. ROS: 15:15 Constitutional: Negative for body aches, chills, fever, poor PO intake, cp 15:15 Eyes: Positive for blurry vision, cp 15:15 Cardiovascular: Positive for chest pain, 15:15 Respiratory: Positive for shortness of breath, 15:15 Abdomen/GI: Positive for abdominal pain, nausea, 15:15 Neuro: Positive for headache, 15:15 All other systems are negative, cp Exam: 15:15 ECG was reviewed by the Attending Physician. cp 15:20 Constitutional: The patient appears in no acute distress, alert, awake, cp non-diaphoretic, non-toxic, well developed, well nourished, 15:20 Head/Face: Normocephalic, atraumatic. cp 15:20 Eyes: Periorbital structures: appear normal, Pupils: equal, round, and reactive to light and accomodation, Extraocular movements: intact throughout, Conjunctiva: normal, no exudate, no injection, Sclera: no appreciated abnormality, Lids and lashes: appear normal, bilaterally, 15:20 ENT: External ear(s): are unremarkable, Nose: is normal, Mouth: Lips: moist, Oral mucosa: moist, Posterior pharynx: Airway: no evidence of obstruction, patent, 15:20 Chest/axilla: Inspection: normal, 15:20 Cardiovascular: Rate: normal, Rhythm: regular, Edema: is not appreciated, 15:20 Respiratory: the patient does not display signs of respiratory distress, Respirations: cp normal, no use of accessory muscles, no retractions, labored breathing, is not present, Breath sounds: are clear throughout, no decreased breath sounds, no stridor, no wheezing, 15:20 Abdomen/GI: Inspection: abdomen appears normal, Palpation: abdomen is soft and non-tender, in all quadrants, 15:20 Neuro: Orientation: to person, place \T\ time. Mentation: is normal, Cerebellar function: is grossly normal, Motor: moves all fours, no focal deficits, Sensation: no obvious gross deficits, Gait: is steady, Vital Signs: 15:11 BP 171 / 98; Pulse 73; Resp 16; Temp 97.8; Pulse Ox 94% on R/A; iw 16:10 BP 154 / 97; Pulse 67; Resp 16; Pulse Ox 92% on R/A; cm10 MDM: 15:06 Medical Screening Exam initiated 15:59 Data reviewed: vital signs, nurses notes, lab test result(s), EKG, radiologic studies, cp plain films. 15:59 I considered the following discharge prescriptions or medication management in the emergency department Medications were administered in the Emergency Department. See MAR. Counseling: I had a detailed discussion with the patient and/or guardian regarding the historical points, exam findings, and any diagnostic results supporting the discharge/admit diagnosis, lab results, to return to the emergency department if symptoms worsen or persist or if there are any questions or concerns that arise at home. Response to treatment: the patient's symptoms have mildly improved after treatment. ED course: Patient reports headache and chest pain markedly improved and requests discharge due to family member health. Discussed concern for low oxygen sats and recommend f/u with pcp. 09/07 15:12 Order name: Basic Metabolic Panel; Complete Time: 15:56 cp 09/07 15:56 Interpretation: Normal except: CL 109; GFR 75. cp 09/07 15:12 Order name: CBC with Diff; Complete Time: 15:56 cp 09/07 15:12 Order name: LFT's; Complete Time: 15:56 cp 09/07 15:12 Order name: Magnesium; Complete Time: 15:56 cp 09/07 15:12 Order name: NT PRO-BNP; Complete Time: 15:56 cp 09/07 15:12 Order name: PT-INR; Complete Time: 15:56 cp 09/07 15:12 Order name: Troponin HS; Complete Time: 15:56 cp 09/07 15:12 Order name: Lipase; Complete Time: 15:56 cp 09/07 15:12 Order name: XRAY Chest (1 view); Complete Time: 15:56 cp 09/07 15:12 Order name: EKG; Complete Time: 15:12 cp 09/07 15:12 Order name: Cardiac monitoring; Complete Time: 15:19 cp 09/07 15:12 Order name: EKG - Nurse/Tech; Complete Time: 15:19 cp 09/07 15:12 Order name: IV Saline Lock; Complete Time: 15:19 cp 09/07 15:12 Order name: Labs collected and sent; Complete Time: 15:19 cp 09/07 15:12 Order name: O2 Per Protocol; Complete Time: 15:19 cp 09/07 15:12 Order name: O2 Sat Monitoring; Complete Time: 15:19 cp EC:15 Rate is 75 beats/min. Rhythm is regular. VT interval is normal. QRS interval is normal. cp QT interval is normal. T waves are Inverted in lead aVR. Interpreted by me. Reviewed by me. Administered Medications: 15:33 Drug: metoCLOPramide IVP 10 mg IVP once; over 1 to 2 minutes Route: IVP; Site: right cm10 antecubital; 16:10 Follow up: Response: No adverse reaction cm10 15:33 Drug: diphenhydrAMINE IVP 25 mg IVP once Route: IVP; Site: right antecubital; cm10 16:10 Follow up: Response: No adverse reaction cm10 15:33 Drug: Ketorolac IVP 15 mg IVP once Route: IVP; Site: right antecubital; cm10 16:10 Follow up: Response: No adverse reaction cm10 15:33 Drug: NS 0.9% IV 1000 ml IV at 1000 ml once; to be given as a bolus over 60 minutes cm10 Route: IV; Rate: 1000 ml; Site: right antecubital; 16:10 Follow up: Response: No adverse reaction; IV Status: Completed infusion; IV Intake: cm10 1000ml 15:56 Not Given (Patient Refused): DuoNeb Nebulize (2.5 mg - 0.5 mg) 3 ml Nebulizer once cm10 15:56 Not Given (Patient Refused): dhvszpimsuqfsixzhx232 mg IVP once cm10 16:09 Drug: MethylPrednisoLONE IVP 125 mg IVP once Route: IVP; Site: right antecubital; cm10 16:10 Follow up: Response: Medication administered at discharge. cm10 Disposition: 09/08 14:09 Chart complete. cp Disposition Summary: 09/07/24 15:59 Discharge Ordered Notes: Location: Home cp Problem: new cp Symptoms: have improved cp Condition: Stable cp Diagnosis - Headache cp - Chest pain, unspecified cp - Shortness of breath cp Followup: cp - With: Private Physician - When: 1 - 2 days - Reason: Recheck today's complaints Discharge Instructions: - Discharge Summary Sheet cp - Nonspecific Chest Pain, Adult cp - General Headache Without Cause cp - Shortness of Breath, Adult cp Forms: - Medication Reconciliation Form cp - Antibiotic Education cp - Prescription Opioid Use cp - Patient Portal Instructions cp - Leadership Thank You Letter cp Prescriptions: - ipratropium-albuterol 0.5 mg-3 mg(2.5 mg base)/3 mL Inhalation Solution for Nebulization - nebulize 3 milliliter INHALATION route 4 times per day As needed; 1 unit; cp Refills: 0, Product Selection Permitted - Medrol (Soto) 4 mg Oral Tablets, Dose Pack - take 1 tablet ORAL route as directed - follow package instructions; 1 packet; cp Refills: 0, Product Selection Permitted Addendum: 16:59 I was immediately available for consultation during this patient's visit. I did not e c2 personally see the patient or discuss the patient with the ROSARIO. . Signatures: Dispatcher [employer] Brook Sifuentes RN RN Jimbo Galvan PA PA cp Martinez, Clarissa, RN RN cm10 Aram Bianchi MD MD ec2 Corrections: (The following items were deleted from the chart) 09/07 15:35 15:35 SARS-COV-2 Antigen Rapid+I.LAB.BRZ ordered. EDMS EDMS 15:35 15:35 Influenza Screen (A \T\ B)+BA.LAB.BRFbaiola ordered. EDMS EDMS
[2024-09-07 16:35] VITALS: TEMP 97.8
[2024-09-07 16:41] VITALS: BP 154/97; O2SAT 92
--- NOTE | 2024-09-09 13:40 | EKG ---
Test Date: 2024-09-07 Test Time: 15:12:48 Floral Design Teacher: TM MEASUREMENT RESULTS: Intervals: Rate: 75 UT: 170 QRSD: 78 QT: 396 QTc: 442 [place]: P: 63 UT: 170 QRS: 33 T: 22 INTERPRETIVE STATEMENTS: Normal sinus rhythm Normal ECG Compared to ECG 08/05/2024 17:10:15 No significant changes Electronically Signed On 09-09-24 13:36:59 FARM SERVICE ADVISER by Nitish Diego
== END 2024-09-07 16:12 | disposition home or self-care (01) ==
LOC: ER 14:59
DX: R07.9 Chest pain, unspecified (principal); R51.9 Headache, unspecified; R06.02 Shortness of breath; R11.0 Nausea; H53.8 Other visual disturbances; I10 Essential (primary) hypertension; N18.9 Chronic kidney disease, unspecified; K86.1 Other chronic pancreatitis
CPT/HCPCS: 96361; 93005; 85025; 80048; 36415; 83735; 85610; 80076; 84484; 83690; 83880; 71045; 96375; 96374; 99285; J2765; J1200; J2919; J7030; J7613; J7644

== ENCOUNTER 2024-09-12 14:46 | Emergency (ER) | payer OTHER ==
--- OUTSIDE RECORDS SUMMARY | 2024-09-12 14:57 | XMS REPORT | Continuity of Care Document ---
Author Name Unknown Address [address] [facility] [address] [place] [address] [facility] thconnect Address [address] [facility] [address] [place] [address] Care Team Providers Care Sales Record Clerk Name Role Phone Emily Gaines Primary Care Physician Mayuri James Attending Clinician Unavailabl HAYDEN Montemayor Attending Clinician Unavailable OMARI RAZA Attending Clinician Unavailable ADRI TAYLOR Attending Clinician Unavailable MD RICKI Attending Clinician Unavailab LEANDRO Dodson Attending Clinician Unava ilable LUKE CLARKE Attending Clinician Unavailable LUKE CLARKE Attending Clinician Unavailable Luke Clarke PA-C Attending Clinician [phone] [facility] Attending Clinician Unavailabl FOUZIA Bang Attending Clinician Unavailable GIBRAN MCADAMS Attending Clinician Unavailable BROOK ALLEN Attending Clinician Unav ailable LAB90 Attending Clinician Unavailable Trevor TAYLOR Attending Clinician Unavailable Trevor TAYLOR Attending Clinician Unavailable GERALD VIDAL Attending Clinician Unavailable LAB47 Attending Clinician Unavailable Karl Ferguson MD Attending Clinician [phone] OUTSIDE, REPORTED Attending Clinician UnavailElida Patrick MD Attending Clinician [phone] LETI RIVAS Attending Clinician Unavailable LETI RIVAS Attending Clinician Unavailable ABRAHAM ORANTES Attending Clinician Unavailable Abraham Orantes MD Attending Clinician [phone] Chavez Turner DO Attending Clinician [phone] CALLIE MUNOZ Attending Clinician Unavailable CALLIE MUNOZ Attending Clinician Unavailable MERLYN HIDALGO Attending Clinician Unavailable Doctor Unassigned, [place] Attending Clinician U navailable ADAN CHESTER Attending Clinician Unav ailable KIARA RICHARDSON Attending Clinician Unava ilable JOHNATHAN AVILA Attending Clinician Unavail able Johnathan Avila MD Attending Clinician Kristian Paul Attending Clinician Unavaila NANCY Mayfield Attending Clinician Unavailabl STEPHIE Cortes Attending Clinician Unavailab MIRIAM Cervantes Attending Clinician Unavailable MIRIAM LUDWIG Attending Clinician Unavailable Haresh Santamaria MD Attending Clinician + Kristian Gleason Attending Clinician Unavailab le [place], [facility] Attending Clinician Unavailab atilio LAB56 Attending Clinician Unavailable MANFRED LANE Attending Clinician UnavailAYDIN Peralta Attending Clinician Unavailable Carlo ALLEN, Aydin Attending Clinician + NATALI ALEXANDER Attending Clinician Unavailab Natali Glass DO Attending Clinician + ADELAIDE OGODWIN Attending Clinician Unavailable Christa ALLEN, Adelaide Attending Clinician [phone] HEMALATHA MORA Attending Clinician Unavailable Vinclul GAS FITTER APPRENTICE, Hemalatha Attending Clinician +[phone] JESSICA GONZALES S Attending Clinician Unavailable Jessica Pradhan S Attending Clinician [phone] SOHAM CLARKE Attending Clinician Unavaillupillo Clarke MD, Soham Sethi Attending Clinician +[phone] Azam GAS FITTER APPRENTICE, Lion Attending Clinician + MARK HERNANDEZ Attending Clinician Unavailable Mark Hernandez MD Attending Clinician [phone] Ellen Carroll RN Attending Clinician + [phone] EMELIA GALLEGO Attending Clinician Unavailable Ibcat FRENCHP, Madison F Attending Clinician [phone] Emelia Gallego DO Attending Clinician [phone] Felipe Valdivia Attending Clinician +[phone] FELIPE ORTEGA Attending Clinician Unavailable Elliot HICKS, Gabriella Richard Attending Clinician +[phone] Nurse, Adc Pob Immunization Attending Clinician Unavailable David Clarke DO Attending Clinician [phone] Nikhil Trevizo Attending Clinician + [phone] NIKHIL BLANTON Attending Clinician Unavailable Pcp, Patient Does Not Have A Attending Clinician Isabela BARRIGA, Mirna Topete Attending Clinician Unavailab Darnell Denny Attending Clinician + [phone] Jessy Siddiqui DO Attending Clinician [phone] LUKE CLARKE Admitting Clinician Unavailable Trevor TAYLOR [...] Clinician Unavailable Mark Hernandez MD Admitting Clinician [phone] Trevor TAYLOR Admitting Clinician Unavailable EMELIA GALLEGO Admitting Clinician Unavailable Emelia Gallego DO Admitting Clinician [phone] DARNELL HSU Admitting Clinician Unavailable Payers Payer Name Policy Type Policy Number Effective Date Expirati on Date Source [employer] 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 SBO (small bowel obstructio n) SBO (small bowel obstructio n) Disease Active 10-30 00:00: 00 [facility] Obesity (BMI 30-39.9) Obesity (BMI 30-39.9) Disease Active 16 00:00: 00 [facility] No known active problems No known active problems Disease [facility] [id number] Bladder mass Problem [facility] [id number] Microscopi c hematuria Problem [facility] [id number] Suprapubic pain Problem [facility] [id number] Lower urinary tract symptoms Problem [facility] Allergies, Adverse Reactions, Alerts Allergy Name Allergy Type Status Severity Reaction(s) Onset Date Inactive Date Treating Clinician Comments Source bee venom protein (honey bee) DA Active SV THROAT SWELL 2022-09 00:00: 00 [facility] Bee Venom Propensi ty to adverse reaction s Active Swelling 10-30 00:00: 00 [facility] Ng - Externa l BEE VENOM PROTEIN (HONEY BEE) DRUG INGREDI Active Swelling 10-30 00:00: 00 [facility] No Known Allergie s DA Active U 04-19 00:00: 00 [facility] NO KNOWN ALLERGIE S Drug Class Active [facility] Social History Social Habit Start Date Stop [...] (event) 2022-11-28 00:00:00 2022-12-08 23:50:00 Not sure [facility] Tobacco use and exposure 2022-10-11 00:00:00 2022-10-11 00:00:00 Smokeless tobacco non-user [facility] Sex 2022-09-11 16:00:01 2022-09-11 16:00:01 Male (finding) Luz Maria Ng - External Sex assigned at 1970 00:00:00 1970 00:00:00 [facility] Maria Montenegro Smoking Status Start Date Stop Date Source Ex-smoker 2024-03-30 00:00:00 2024-03-30 00:00:00 Luz Maria Ng - Lan Occasional tobacco smoker 2023-05-20 00:00:00 Luz Maria Montenegro Never smoked tobacco [facility] Unknown if ever smoked [facility] Medications Ordered Medication Name Filled Medication Name Start Date Stop Date Current Medication? Ordering Clinician Indication Dosage Frequency Signature (SIG) Comments Components Source ketorolac (TORADOL) injection 15 mg 06-08 01:00: 00 06-08 00:42 :00 No 15mg 15 mg, Slow IV Push, ONCE, 1 dose, On Thu06/07/24 at 2000, Routine [facility] HYDROcodone -acetaminop hen (NORCO 5) tablet 1 tablet 06-08 00:15: 00 06-08 00:41 :00 No 1{tbl} 1 tablet, Oral, ONCE, 1 dose, On Thu06/07/24 at 1915, [facility] aspirin chewable tablet 324 mg 06-07 23:30: 00 06-07 22:42 :00 No 324mg 324 mg, Oral, ONCE, 1 dose, On Thu06/07/24 at 1830, Routine [facility] NaCl 0.9% (NS) bolus infusion 1,000 mL 06-07 22:45: 00 06-08 00:45 :00 No 1000mL at 999 mL/hr, 1,000 mL, IV Infusion, ONCE, 1 dose, On Thu06/07/24 at 1745, [facility] nitroglycer in (NITROSTAT) sublingual tablet 0.4 mg 06-07 21:58: 38 Yes .4mg 0.4 mg, Sublingual , Q5MIN PRN, 3 doses, Starting on Thu06/07/24 at 1658, Until Discontinu ed, VASILIY, Chest pain [facility] diclofenac 50 mg tablet 06-07 00:00: 00 06-18 04:59 :00 No [id number] 50mg Take 1 tablet by mouth in the morning and 1 tablet at noon and 1 tablet in the evening. Do all this for [address] [facility] acetaminoph en-codeine 300-30 mg tablet 06-07 00:00: 00 06-13 04:59 :00 No [id number] 1{tbl} Take 1 tablet by mouth every 6 (six) hours as needed for Pain (scale 7-10) for up to 5 days. Indication s: acute pain [facility] Lisinopril 10 MG oral Tablet 05-09 00:00: 00 Yes [id number] 10mg QD Take 1 tablet (10 mg total) by mouth daily. [facility] rea Alprazolam (Xanax) 0.25 MG oral Tablet 04-11 00:00: 00 07-20 00:00 :00 No [id number] 107 Take 1 table 45 mins before MRI and 1 tablet just before MRI. [facility] diphenhydrA MINE:lidoca ine 2% viscous:maa lox 1:1:1 ([facility]) oral suspension 15 mL 04-02 16:30: 00 04-02 15:34 :00 No 15mL 15 mL, Oral (Swish & Swallow), ONCE, 1 dose, On 04/02/24 at 1130, Routine [facility] famotidine (PEPCID (PF)) injection 20 mg 04-02 15:30: 00 04-02 15:34 :00 No 20mg 20 mg, Slow IV Push, ONCE, 1 dose, On 04/02/24 at 1030, [facility]ASIL[facility] NaCl 0.9% (NS) bolus infusion 2,000 mL 04-02 15:15: 00 04-02 17:55 :00 No 2000mL at 999 mL/hr, 2,000 mL, IV Infusion, ONCE, 1 dose, On 04/02/24 at 1015, STAT [facility] ondansetron (ZOFRAN (PF)) injection 4 mg 04-02 15:15: 00 04-02 14:27 :00 No 4mg 4 mg, Slow IV Push, ONCE, 1 dose, On 04/02/24 at 1015, VASILIY [facility] iopamidol (ISOVUE 370-500 mL) injection 90 mL 04-02 14:45: 00 04-02 15:00 :00 No [id number] 90mL 90 mL, Intravenou s, ONCE, 1 dose, On 04/02/24 at 1000, Routine [facility] morpHINE (4 mg/mL) injection 4 mg 04-02 14:15: 00 04-02 14:27 :00 No 4mg 4 mg, Slow IV Push, ONCE, 1 dose, On 04/02/24 at 0915, STAT [facility] Sucralfate 1 g oral Tablet 04-02 00:00: 00 Yes 1g Take 1 tablet (1 g total) by mouth before meals and at bedtime. [facility] rea Sod Picosulfate -Mag Ox-Cit Acd (Clenpiq) 10-3.5-12 MG-GM -GM/175ML oral Solution 03-30 00:00: 00 Yes [id number] Instructio ns provided to patient. Follow instructio ns provided by provider.. [facility] Omeprazole 40 MG oral Delayed Release Capsule 03-30 00:00: 00 Yes [id number] 40mg QD Take 1 capsule (40 mg total) by mouth daily. [facility] NaCl 0.9% (NS) bolus infusion 1,000 mL 02-20 03:45: 00 02-20 04:50 :00 No 1000mL at 999 mL/hr, 1,000 mL, IV Infusion, ONCE, 1 dose, On 02/20/24 at 2245, [facility] FENT[facility] (SUBLIMAZE (PF)) injection 50 mcg 02-20 03:00: 00 02-20 03:07 :00 No 50ug 50 mcg, Slow IV Push, ONCE, 1 dose, On 02/20/24 at 2200, Routine [facility] metoclopram jerilyn HCl (REGLAN) injection 10 mg 02-20 03:00: 00 02-20 03:07 :00 No 10mg 10 mg, Slow IV Push, ONCE, 1 dose, On 02/20/24 at 2200, [facility] bisacodyL (DULCOLAX) tablet 5 mg 02-20 03:00: 00 02-20 03:07 :00 No 5mg 5 mg, Oral, ONCE NOW, 1 dose, On 02/20/24 at 2200, Routine [facility] dicyclomine 20 mg tablet 02-19 00:00: 00 Yes [id number] 20mg Take 1 tablet by mouth 4 (four) times daily as needed for Abdominal pain. [facility] Bisacodyl (DULCOLAX) 5 MG oral Tablet [...] MG oral Tablet 12-16 00:00: 00 Yes [id number] 10mg QD Take 1 tablet (10 mg total) by mouth nightly as needed for muscle spasms. [facility] HYDROcodone -acetaminop hen (NORCO) 10-325 mg tablet 1 tablet 12-09 04:45: 00 12-09 03:57 :00 No 1{tbl} 1 tablet, Oral, ONCE NOW, 1 dose, On Thu12/09/23 at 2345, Routine [facility] iopamidol (ISOVUE 370-500 mL) injection 100 mL 12-09 03:30: 00 12-09 03:30 :00 No [id number] 100mL 100 mL, Intravenou s, ONCE, 1 dose, On Thu12/09/23 at 2230, Routine [facility] ketorolac (TORADOL) injection 30 mg 12-09 03:00: 00 12-09 02:04 :00 No 30mg 30 mg, Slow IV Push, ONCE, 1 dose, On Thu12/09/23 at 2200, Routine [facility] Methocarbam ol 750 MG oral Tablet 12-09 00:00: 00 12-16 00:00 :00 No 750mg Q.25D Take 1 tablet (750 mg total) by mouth every 6 hours as needed FOR PAIN. [facility] ketorolac 10 mg tablet 12-08 00:00: 00 Yes [id number] 10mg Take 1 tablet by mouth every 6 (six) hours as needed for Pain (scale 7-10). [facility] methocarbam oL 750 mg tablet 12-08 00:00: 00 Yes [id number] 750mg Take 1 tablet by mouth every 6 (six) hours as needed for Pain (scale 7-10) (MUSCLE SPASM). [facility] Ketorolac Tromethamin e (TORADOL IM) 12-05 00:00: 00 12-16 00:00 :00 No [facility] re[facility] Lisinopril 10 MG oral Tablet 10-06 14:45: 28 10-06 00:00 :00 No 10mg Take 1 tablet (10 mg total) by mouth daily. [facility] Gabapentin 300 MG oral Capsule 10-06 00:00: 00 Yes [id number] 300mg Q.5D Take 1 capsule (300 mg total) by mouth 2 times daily as needed. [facility] Lisinopril 10 MG oral Tablet 10-06 00:00: 00 Yes [id number] 10mg QD Take 1 tablet (10 mg total) by mouth daily. [facility] Pancrelipas e, Lip-Prot-Am yl, (Creon) 80414-21490 units oral Cap DR Particles 10-06 00:00: 00 Yes [id number] 1{capsu le} Take 1 capsule by mouth 3 times daily (with meals). [facility] re[facility] Amlodipine Besylate 10 MG oral Tablet 10-06 00:00: 00 Yes [id number] 10mg QD Take 1 tablet (10 mg total) by mouth daily. [facility] Famotidine (PEPCID) 20 MG oral tablet 10-06 00:00: 00 Yes [id number] 20mg Q.5D Take 1 tablet (20 mg total) by mouth 2 times daily. [facility] Pantoprazol e Sodium 20 MG oral Tablet Delayed Response 10-06 00:00: 00 03-30 00:00 :00 No [id number] 20mg Take 1 tablet (20 mg total) by mouth every morning. [facility] HYDROcodone -acetaminop hen (NORCO) 10-325 mg tablet 1 tablet 2022-09 06:45: 00 08-04 05:38 :00 No 1{tbl} 1 tablet, Oral, ONCE NOW, 1 dose, On Thu08/04/23 at 0045, [facility] meth[facility] (ROBAXIN) tablet 1,000 mg 2022-09 05:45: 00 08-04 05:38 :00 No 1000mg 1,000 mg, Oral, ONCE, 1 dose, On Thu08/03/23 at 2345, [facility] FENTanyl PF (SUBLIMAZE (PF)) injection 75 mcg 2022-09 05:00: 00 08-04 04:14 :00 No 75ug 75 mcg, Slow IV Push, ONCE, 1 dose, On 08/03/23 at 2300, Routine [facility] NaCl 0.9% (NS) IV infusion 1,000 mL 2022-09 04:45: 00 08-04 05:39 :00 No 1000mL at 999 mL/hr, Intravenou s, ONCE, 1 dose, On 08/03/23 at 2245, Routine [facility] methocarbam oL 500 mg tablet 2022-09 00:00: 00 Yes [id number] 500mg Take 1 tablet by mouth every 6 (six) hours as needed (MUSCLE SPASM). [facility] HYDROcodone -acetaminop hen (NORCO) 10-325 mg tablet 2022-09 00:00: 00 08-11 05:59 :00 No [id number] 1{tbl} Take 1 tablet by mouth every 6 (six) hours as needed for Pain (scale 7-10) for up to 7 days. Indication s: acute pain [facility] diphenhydrA MINE (BENADRYL) injection 25 mg 2022-09 19:30: 00 07-25 18:34 :00 No 25mg 25 mg, Slow IV Push, ONCE, 1 dose, On 07/25/23 at 1330, STAT [facility] metoclopram jerilyn HCl (REGLAN) injection 10 mg 2022-09 19:30: 00 07-25 18:34 :00 No 10mg 10 mg, Slow IV Push, ONCE, 1 dose, On 07/25/23 at 1330, VASIL[facility] morpHINE (4 mg/mL) injection 4 mg 2022-09 17:30: 00 07-25 16:43 :00 No 4mg 4 mg, Slow IV Push, ONCE, 1 dose, On 07/25/23 at 1130, STAT [facility] ondansetron (ZOFRAN (PF)) injection 4 mg 2022-09 17:15: 00 07-25 16:43 :00 No 4mg 4 mg, Slow IV Push, ONCE, 1 dose, On 07/25/23 at 1115, VASIL[facility] NaCl 0.9% (NS) bolus infusion 1,000 mL 2022-09 17:15: 00 07-25 18:54 :00 No 1000mL at 999 mL/hr, 1,000 mL, IV Infusion, ONCE, 1 dose, On 07/25/23 at 1115, STAT [facility] metoclopram jerilyn HCl 10 mg tablet 2022-09 00:00: 00 Yes [id number] 10mg Take 1 tablet by mouth every 6 (six) hours. [facility] sodium chloride (NS) injection 5 mL 2022-09 19:45: 30 Yes 5mL 5 mL, Intravenou s, PRN, Starting on Thu07/24/23 at 1345, Until Discontinu ed, Routine, IV line flushing [facility] dicyclomine 20 mg tablet 2022-09 00:00: 00 02-19 00:00 :00 No [id number] 20mg Take 1 tablet by mouth 4 (four) times daily as needed for Abdominal pain. [facility] ketorolac (TORADOL) injection 15 mg 2022-09 03:15: 00 07-12 02:32 :00 No 15mg 15 mg, Slow IV Push, ONCE, 1 dose, On 07/11/23 at 2215, Routine [facility] methocarbam oL (ROBAXIN) tablet 1,000 mg 2022-09 02:30: 00 07-12 02:32 :00 No 1000mg 1,000 mg, Oral, ONCE, 1 dose, On 07/11/23 at 2130, [facility] famotidine (PEPCID (PF)) injection 20 mg 2022-09 02:30: 00 07-12 02:32 :00 No 20mg 20 mg, Slow IV Push, ONCE, 1 dose, On 07/11/23 at 2130, [facility]ASIL[facility] aspirin chewable tablet 324 mg 2022-09 02:15: 00 07-12 02:31 :00 No 324mg 324 mg, Oral, ONCE, 1 dose, On Thu07/11/23 at 2115, STAT [facility] HYDROcodone -acetaminop hen 5-325 mg tablet 2022-09 00:00: 00 07-15 04:59 :00 No [id number] 1{tbl} Take 1 tablet by mouth every 4 (four) hours as needed for Pain (scale 7-10) for up to 3 days. Indication s: acute pain [facility] omeprazole 40 mg capsule 2022-09 00:00: 00 Yes [id number] 40mg Take 1 capsule by mouth in the morning and 1 capsule in the evening. [facility] peg-electro lyte soln 236-22.74-6 .74 -5.86 gram solution 2022-09 00:00: 00 Yes [id number] Take as directed before colonoscop y [facility] Lisinopril 10 MG oral Tablet 2022-09 [...] ONCE, 1 dose, On Thu07/03/23 at 0845, [facility] famotidine (PEPCID (PF)) injection 20 mg 2022-09 13:00: 00 07-03 12:49 :00 No 20mg 20 mg, Slow IV Push, ONCE, 1 dose, On Thu07/03/23 at 0800, [facility] iohexol (OMNIPAQUE 350 BULK-100 mL) injection 80 mL 2022-09 10:40: 00 07-03 10:40 :00 No [id number] 80mL 80 mL, Intravenou s, ONCE, 1 dose, On Thu07/03/23 at 0545, Routine [facility] ondansetron (ZOFRAN (PF)) injection 4 mg 2022-09 10:15: 00 07-03 10:20 :00 No 4mg 4 mg, Slow IV Push, ONCE, 1 dose, On Thu07/03/23 at 0515, [facility]AS[facility] morpHINE (4 mg/mL) injection 4 mg 2022-09 10:15: 07-03 10:20 :00 No 4mg 4 mg, Slow IV Push, ONCE, 1 dose, On Thu07/03/23 at 0515, STAT [facility] Pantoprazol e Sodium 20 MG oral Tablet Delayed Response 2022-09 00:00: 00 10-06 00:00 :00 No 20mg Take 1 tablet (20 mg total) by mouth every morning. Lu z[facility] rea HYDROcodone -Acetaminop hen (NORCO) 5-325 MG oral Tablet 2022-09 00:00: 00 10-06 00:00 :00 No TAKE 1 TABLET BY MOUTH EVERY 4 HOURS NEEDED FOR PAIN (SCALE 4-6) [facility] famotidine (PEPCID) 20 mg tablet 2022-09 00:00: 00 07-10 00:00 :00 No [id number] 20mg Take 1 tablet by mouth in the morning and 1 tablet in the evening. [facility] Lisinopril 10 MG oral Tablet 05-20 15:08: 12 Yes 10mg Take 1 tablet (10 mg total) by mouth daily. [facility] Tamsulosin HCl 0.4 MG oral Capsule 05-20 00:00: 00 Yes .4mg Take 1 capsule (0.4 mg total) by mouth every night at bedtime. [facility] iopamidol (ISOVUE 370-500 mL) injection 80 mL 05-08 03:15: 00 05-08 02:12 :00 No [id number] 80mL 80 mL, Intravenou s, ONCE, 1 dose, On Carrie 05/07/23 at 2215, Routine [facility] morpHINE (4 mg/mL) injection 4 mg 05-08 01:00: 00 05-08 01:38 :00 No 4mg 4 mg, Slow IV Push, ONCE, 1 dose, On Carrie 05/07/23 at 2000, [facility] NaCl 0.9% (NS) bolus infusion 1,000 mL 05-08 01:00: 00 05-08 04:22 :00 No 1000mL at 999 mL/hr, 1,000 mL, IV Infusion, ONCE, 1 dose, On Carrie 05/07/23 at 2000, [facility] NaCl 0.9% (NS) bolus infusion 1,000 mL 05-02 05:15: 00 05-02 05:29 :00 No 1000mL at 999 mL/hr, 1,000 mL, IV Infusion, ONCE, 1 dose, On 05/02/23 at 0015, [facility] famotidine (PEPCID (PF)) injection 20 mg 05-02 04:15: 00 05-02 04:21 :00 No 20mg 20 mg, Slow IV Push, ONCE, 1 dose, On Thu05/01/23 at 2315, [facility] maalox:diph enhydrAMINE :lidocaine 2 % viscous 1:1:1 ([facility]) oral suspension 15 mL 05-02 04:15: 00 05-02 04:21 :00 No 15mL 15 mL, Oral, ONCE, 1 dose, On Thu05/01/23 at 2315, [facility] ondansetron (ZOFRAN (PF)) injection 4 mg 05-02 04:15: 00 05-02 03:18 :00 No 4mg 4 mg, Slow IV Push, ONCE, 1 dose, On Thu05/01/23 at 2315, [facility] NaCl 0.9% (NS) bolus infusion 1,000 mL 05-02 04:15: 00 05-02 04:15 :00 No 1000mL at 999 mL/hr, 1,000 mL, IV Infusion, ONCE, 1 dose, On Thu05/01/23 at 2315, STAT [facility] metoclopram jerilyn HCl 10 mg tablet 05-01 00:00: 00 Yes [id number] 10mg Take 1 tablet by mouth every 6 (six) hours. [facility] pantoprazol e (PROTONIX) 20 mg EC tablet 05-01 00:00: 00 07-03 00:00 :00 No [id number] 20mg Take 1 tablet by mouth in the morning. [facility] iopamidol (ISOVUE 370-500 mL) injection 70 mL 04-22 16:21: 00 04-22 16:21 :00 No [id number] 70mL 70 mL, Intravenou s, ONCE, 1 dose, On Thu04/22/23 at 1145, Routine [facility] haloperidol lactate (HALDOL) injection 2.5 mg 04-22 16:00: 00 04-22 16:01 :00 No 2.5mg 2.5 mg, Intravenou s, ONCE, 1 dose, On Thu04/22/23 at 1100, STAT [facility] NaCl 0.9% (NS) bolus infusion 500 mL 04-22 14:45: 00 04-22 15:30 :00 No 500mL at 999 mL/hr, 500 mL, IV Infusion, ONCE, 1 dose, On Thu04/22/23 at 0945, STAT [facility] maalox:diph enhydrAMINE :lidocaine 2 % viscous 1:1:1 ([facility]) oral suspension 15 mL 04-22 13:00: 00 04-22 12:55 :00 No 15mL 15 mL, Oral, ONCE, 1 dose, On Thu04/22/23 at 0800, Routine [facility] NaCl 0.9% (NS) IV infusion 1,000 mL 04-22 12:45: 00 Yes 1000mL at 999 mL/hr, Intravenou s, CONTINUOUS , Starting on Thu04/22/23 at 0745, Until Discontinu ed, Routine [facility] NaCl 0.9% (NS) bolus infusion 1,000 mL 04-22 10:30: 00 04-22 11:30 :00 No 1000mL at 999 mL/hr, 1,000 mL, IV Infusion, ONCE, 1 dose, On Thu04/22/23 at 0530, STAT [facility] ketorolac (TORADOL) injection 30 mg 04-22 10:30: 00 04-22 09:21 :00 No 30mg 30 mg, Slow IV Push, ONCE, 1 dose, On Thu04/22/23 at 0530, Routine [facility] diphenhydrA MINE (BENADRYL) injection 25 mg 04-22 09:30: 00 04-22 09:21 :00 No 25mg 25 mg, Slow IV Push, ONCE, 1 dose, On Thu04/22/23 at 0430, STAT [facility] metoclopram jerilyn HCl (REGLAN) injection 10 mg 04-22 09:30: 00 04-22 09:21 :00 No 10mg 10 mg, Slow IV Push, ONCE, 1 dose, On Thu04/22/23 at 0430, [facility] NaCl 0.9% (NS) bolus infusion 1,000 mL 04-22 09:15: 00 04-22 10:28 :00 No 1000mL at 999 mL/hr, 1,000 mL, IV Infusion, ONCE, 1 dose, On Thu04/22/23 at 0415, STAT [facility] Tramadol HCl (ULTRAM) 50 MG oral [...] On Carrie 04/16/23 at 0915, Routine [facility] famotidine (PEPCID (PF)) injection 20 mg 04-16 13:30: 00 04-16 12:33 :00 No 20mg 20 mg, Slow IV Push, ONCE NOW, 1 dose, On Carrie 04/16/23 at 0830, [facility] dicyclomine (BENTYL) injection 20 mg 04-16 13:30: 00 04-16 12:34 :00 No 20mg 20 mg, Intramuscu lar, ONCE NOW, 1 dose, On Carrie 04/16/23 at 0830, Routine [facility] enalaprilat (VASOTEC I.V.) injection 1.25 mg 04-16 13:15: 00 04-16 13:17 :00 No 1.25mg 1.25 mg, Slow IV Push, ONCE, 1 dose, On Carrie 04/16/23 at 0815, STAT [facility] lactulose (CEPHULAC) solution 45 mL 04-16 13:15: 00 04-16 13:18 :00 No 45mL 45 mL, Oral, ONCE, 1 dose, On Carrie 04/16/23 at 0815, [facility] ketorolac (TORADOL) injection 30 mg 04-16 13:15: 00 04-16 12:32 :00 No 30mg 30 mg, Slow IV Push, ONCE NOW, 1 dose, On Carrie 04/16/23 at 0815, [facility]IL[facility] NaCl 0.9% (NS) bolus infusion 1,000 mL 04-16 13:15: 00 04-16 13:54 :00 No 1000mL at 999 mL/hr, 1,000 mL, IV Piggyback, ONCE, 1 dose, On Carrie 04/16/23 at 0815, STAT [facility] lipase-prot ease-amylas e (CREON) 3,000-9,500 - 15,000 unit capsule 04-16 00:00: 00 Yes [id number] 3000U Take 1 capsule by mouth in the morning and 1 capsule at noon and 1 capsule in the evening. Take with meals. [facility] hyoscyamine sulfate (LEVSIN/SL) 0.125 mg sublingual tablet 04-16 00:00: [id number] 2 tablets under the tongue every 6 (six) hours as needed (Abdominal pain or cramping). [facility] bisacodyL 5 mg EC tablet 04-16 00:00: 00 Yes [id number] 5mg Take 1 tablet by mouth once daily as needed for Constipati on. [facility] Famotidine (PEPCID) 20 MG oral tablet 04-16 00:00: 00 10-06 00:00 :00 No 20mg Take 1 tablet (20 mg total) by mouth 2 times daily. Luz Maria rea Lorazepam 1 MG oral Tablet 04-05 00:00: 00 10-06 00:00 :00 No 1mg [id number] 3D Take 1 tablet (1 mg total) by mouth every 8 hours as needed. Luz Maria Wallace l iopamidol (ISOVUE 370-500 mL) injection 100 mL 04-01 07:45: 00 04-01 06:58 :00 No [id number] 100mL 100 mL, Intravenou s, ONCE, 1 dose, On Thu04/01/23 at 0245, Routine [facility] famotidine (PEPCID (PF)) injection 20 mg 04-01 05:45: 00 04-01 06:09 :00 No 20mg 20 mg, Slow IV Push, ONCE, 1 dose, On Thu04/01/23 at 0045, [facility]IL[facility] FENTanyl PF (SUBLIMAZE (PF)) injection 50 mcg 04-01 05:38: 00 04-01 06:10 :00 No 50ug 50 mcg, Slow IV Push, ONCE, 1 dose, On Thu04/01/23 at 0045, [facility] NaCl 0.9% (NS) IV infusion 1,000 mL 04-01 05:05: 00 04-01 06:30 :00 No 1000mL at 999 mL/hr, Intravenou s, ONCE, 1 dose, On Thu04/01/23 at 0015, [facility] ondansetron (ZOFRAN (PF)) injection 4 mg 04-01 05:05: 00 04-01 05:08 :00 No 4mg 4 mg, Slow IV Push, ONCE, 1 dose, On Thu04/01/23 at 0015, [facility] sodium chloride (NS) injection 5 mL 04-01 05:04: 36 Yes 5mL 5 mL, Intravenou s, PRN, Starting on Thu04/01/23 at 0004, Until Discontinu ed, Routine, IV line flushing [facility] ondansetron 4 mg disintegrat ing tablet 04-01 00:00: 00 Yes [id number] 4mg Take 1 tablet by mouth every 8 (eight) hours as needed for Nausea and Vomiting (N/V). [facility] traMADoL 50 mg tablet 04-01 00:00: 00 04-09 04:59 :00 No [id number] 50mg Take 1 tablet by mouth every 8 (eight) hours as needed for Pain (scale 4-6) for up to 7 days. Indication s: acute pain [facility] predniSONE (DELTASONE) tablet 40 mg 12-09 07:15: 00 12-09 06:33 :00 No 40mg 40 mg, Oral, ONCE, 1 dose, On Thu12/09/22 at 0215, [facility] traMADoL (ULTRAM) tablet 50 mg 12-09 07:15: 00 12-09 06:33 :00 No 50mg 50 mg, Oral, ONCE, 1 dose, On Thu12/09/22 at 0215, [facility] iopamidol (ISOVUE 370-500 mL) injection 100 mL 12-09 06:15: 12-09 06:15 :00 No [id number] 100mL 100 mL, Intravenou s, ONCE, 1 dose, On Thu12/09/22 at 0115, Routine [facility] ketorolac (TORADOL) injection 30 mg 12-09 06:15: 12-09 05:30 :00 No 30mg 30 mg, Slow IV Push, ONCE, 1 dose, On Thu12/09/22 at 0115, [facility] morpHINE (4 mg/mL) injection 4 mg 12-09 06:15: 12-09 05:30 :00 No 4mg 4 mg, Slow IV Push, ONCE, 1 dose, On Thu12/09/22 at 0115, [facility] NaCl 0.9% (NS) bolus infusion 1,000 mL 12-09 06:15: 12-09 06:33 :00 No 1000mL at 999 mL/hr, 1,000 mL, IV Infusion, ONCE, 1 dose, On Thu12/09/22 at 0115, [facility] ondansetron (ZOFRAN (PF)) injection 8 mg 12-09 05:30: 00 12-09 05:30 :00 No 8mg 8 mg, Slow IV Push, ONCE, 1 dose, On Thu12/09/22 at 0030, [facility] traMADoL 50 mg tablet 12-09 00:00: 00 Yes [id number] 50mg Take 1 tablet by mouth every 6 (six) hours as needed (pain). Indication s: acute pain [facility] ondansetron 4 mg tablet 12-09 00:00: 00 Yes [id number] 1-2 tablets every 8 hours as needed for nausea [facility] predniSONE 20 mg tablet 12-09 00:00: 00 12-17 04:59 :00 No [id number] 40mg Take 2 tablets by mouth in the morning for [address] [facility] iopamidol (ISOVUE 370-500 mL) injection 100 mL 11-25 06:15: 00 11-25 06:15 :00 No [id number] 100mL 100 mL, Intravenou s, ONCE, 1 dose, On Thu11/25/22 at 0115, Routine [facility] NaCl 0.9% (NS) bolus infusion 1,000 mL 11-25 06:00: 00 11-25 07:00 :00 No 1000mL at 999 mL/hr, 1,000 mL, IV Infusion, ONCE, 1 dose, On Thu11/25/22 at 0100, STAT [facility] FENTanyl PF (SUBLIMAZE (PF)) injection 50 mcg 11-25 05:45: 00 11-25 05:03 :00 No 50ug 50 mcg, Slow IV Push, ONCE, 1 dose, On Thu11/25/22 at 0045, Routine [facility] ondansetron (ZOFRAN (PF)) injection 4 mg 11-25 05:00: 00 11-25 05:04 :00 No 4mg 4 mg, Slow IV Push, ONCE, 1 dose, On Thu11/25/22 at 0000, [facility] Pancrelipas e, Lip-Prot-Am yl, (Creon) [id number] units oral Cap DR Particles 10-13 00:00: 00 10-06 00:00 :00 No Luz Maria Wallace l lipase-prot ease-amylas e (CREON) 12,000-38,0 00 -60,000 unit capsule 2 capsule 10-12 23:00: 00 Yes 2{capsu le} 2 capsule, Oral, TID MEALS, First dose on 10/12/22 at 1700, Until Discontinu ed, Routine [facility] lisinopriL 10 mg tablet 10-12 17:56: 15 Yes 10mg Take 10 mg by mouth in the morning. [facility] meloxicam (MOBIC) tablet 7.5 mg 10-12 17:15: 00 Yes 7.5mg 7.5 mg, Oral, DAILY, First dose on 10/12/22 at 1115, Until Discontinu ed, Routine [facility] omeprazole (PRILOSEC) capsule 20 mg 10-12 15:00: 00 Yes 20mg 20 mg, Oral, DAILY, First dose on 10/12/22 at 0900, Until Discontinu ed, Routine [facility] Pantoprazol e Sodium 40 MG oral Tablet Delayed Response 10-12 00:00: 00 10-06 00:00 :00 No Luz Maria rea lipase-prot ease-amylas e 12,000-38,0 00 -60,000 unit capsule 10-12 00:00: 00 01-11 04:59 :00 No [id number] 2{capsu le} Take 2 capsules by mouth in the morning and 2 capsules at noon and 2 capsules in the evening. Take with meals. Do all this for 90 days. Do not crush or chew. [facility] meloxicam 7.5 mg tablet 10-12 00:00: 00 10-27 05:59 :00 No [id number] 7.5mg Take 1 tablet by mouth once daily as needed for Pain (scale 7-10) for up to [address] [facility] HYDROcodone -acetaminop hen 5-325 mg tablet 10-12 00:00: 00 10-20 05:59 :00 No [id number] 1{tbl} Take 1 tablet by mouth every 6 (six) hours as needed for Pain (scale 4-6) for up to 7 days. Indication s: acute pain [facility] amLODIPine (NORVASC) tablet 10 mg 10-11 20:00: 00 Yes 10mg 10 mg, Oral, DAILY, First dose on 10/11/22 at 1400, Until Discontinu ed, Routine [facility] lactated ringers IV infusion 1,000 mL 10-11 20:00: 00 10-12 14:03 :28 No 1000mL at 125 mL/hr, 1,000 mL, IV Infusion, CONTINUOUS , Starting on 10/11/22 at 1400, Until 10/12/22 at 0803, Routine [facility] HYDROcodone -acetaminop hen (NORCO 5) 5-325 mg tablet 1 tablet 10-11 19:35: 19 10-13 19:34 :19 No 1{tbl} 1 tablet, Oral, Q6HPRN, Starting on 10/11/22 at 1335, Until 10/13/22 at 1334, Routine, Pain (scale 4-6) [facility] acetaminoph en (TYLENOL) tablet 650 mg 10-11 19:35: 16 Yes 650mg 650 mg, Oral, Q6HPRN, Starting on 10/11/22 at 1335, Until Discontinu ed, Routine, Pain (scale 1-3) [facility] NaCl 0.9% (NS) bolus infusion 1,000 mL 10-11 16:45: 00 10-11 16:02 :00 No 1000mL at 999 mL/hr, 1,000 mL, Intravenou s, ONCE, 1 dose, On 10/11/22 at 1045, STAT [facility] ondansetron (ZOFRAN (PF)) injection 4 mg 10-11 16:15: 00 10-11 16:15 :00 No 4mg 4 mg, Slow IV Push, ONCE, 1 dose, On 10/11/22 at 1015, [facility] morpHINE (4 mg/mL) injection 4 mg 10-11 16:15: 00 10-11 16:14 :00 No 4mg 4 mg, Slow IV Push, ONCE, 1 dose, On 10/11/22 at 1015, STAT [facility] iopamidol (ISOVUE 370-500 mL) injection 120 mL 10-11 15:45: 00 10-11 14:43 :00 No [id number] 120mL 120 mL, Intravenou s, ONCE, 1 dose, On 10/11/22 at 0945, Routine [facility] FENTanyl PF (SUBLIMAZE (PF)) injection 50 mcg 10-09 08:30: 00 10-09 07:23 :00 No 50ug 50 mcg, Slow IV Push, ONCE, 1 dose, On Carrie 10/09/22 at 0230, Routine [facility] iopamidol (ISOVUE 370-500 mL) injection 100 mL 10-09 07:15: 00 10-09 07:15 :00 No [id number] 100mL 100 mL, Intravenou s, ONCE, 1 dose, On Carrie 10/09/22 at 0115, Routine [facility] ketorolac (TORADOL) injection 30 mg 10-09 06:15: 00 10-09 05:25 :00 No 30mg 30 mg, Slow IV Push, ONCE, 1 dose, On Carrie 10/09/22 at 0015, Routine [facility] ondansetron (ZOFRAN) 4 mg tablet 10-09 00:00: 00 Yes [id number] 4mg Take 1 tablet by mouth every 8 (eight) hours as needed for Nausea and Vomiting (N/V). [facility] traMADoL (ULTRAM) 50 mg tablet 10-09 00:00: 00 Yes [id number] 50mg Take 1 tablet by mouth every 6 (six) hours as needed for Pain (scale 7-10). Indication s: acute pain [facility] ketorolac (TORADOL) injection 30 mg 2021-09 2-07 17:15: 00 08-20 16:35 :00 No 30mg 30 mg, Intramuscu lar, ONCE, 1 dose, On Thu08/20/22 at 1115, [facility] Amlodipine Besylate 10 MG oral Tablet 2021-09 00:00: 00 10-06 00:00 :00 No Luz Maria Ng - [place] rea morpHINE (4 mg/mL) injection 4 mg 06-09 13:15: 00 06-09 12:54 :00 No 4mg 4 mg, Slow IV Push, ONCE, 1 dose, On Thu06/09/22 at 0815, [facility] ketorolac (TORADOL) injection 30 mg 06-09 13:15: 00 06-09 12:55 :00 No 30mg 30 mg, Slow IV Push, ONCE, 1 dose, On Thu06/09/22 at 0815, [facility] iop[facility]ol (ISOVUE 370-500 mL) injection 60 mL 06-09 13:07: 00 06-09 13:08 :00 No [id number] 60mL 60 mL, Intravenou s, ONCE, 1 dose, On Thu06/09/22 at 0815, Routine [facility] ondansetron (ZOFRAN (PF)) injection 4 mg 06-09 12:30: 00 06-09 12:54 :00 No 4mg 4 mg, Slow IV Push, ONCE, 1 dose, On Thu06/09/22 at 0730, [facility] dexamethaso ne sod phos PF injection 10 mg 06-09 12:30: 00 06-09 12:55 :00 No 10mg 10 mg, Slow IV Push, ONCE, 1 dose, On Thu06/09/22 at 0730, [address] [facility] traMADoL 50 mg tablet 06-09 00:00: 00 10-11 00:00 :00 No [id number] 50mg Take 1 tablet by mouth every 6 (six) hours as needed (pain). Indication s: acute pain [facility] lidocaine 5 % (700 mg/patch) patch 06-09 00:00: 00 10-11 00:00 :00 No [id number] Apply one patch to most painful area up to 12 hours a day as needed for pain. PHARMACIST : dispense one box [facility] predniSONE 20 mg tablet 06-09 00:00: 00 06-17 04:59 :00 No [id number] 40mg Take 2 tablets by mouth in the morning for [address] [facility] Dose Unknown 02-03 00:00: 00 No Dose Unknown 02-03 00:00: 00 No lisinopriL (PRINIVIL,Z ESTRIL) tablet 20 mg 11-01 03:00: 00 Yes 20mg 20 mg, Oral, QHS, First dose (after last modificati on) on Thu10/31/21 at 2100, Until Discontinu ed, Routine [facility] lisinopriL 20 mg tablet 11-01 00:00: 00 12-02 04:59 :00 No [id number] 20mg Take 1 tablet by mouth at bedtime for [address] [facility] lactated ringers IV infusion 1,000 mL 10-31 19:00: 00 Yes 1000mL at 75 mL/hr, 1,000 mL, IV Infusion, CONTINUOUS , Starting on Thu10/31/21 at 1300, Until Discontinu ed, Routine [facility] amLODIPine (NORVASC) tablet 10 mg 10-31 15:00: 00 Yes 10mg 10 mg, Oral, DAILY, First dose on Thu10/31/21 at 0900, Until Discontinu ed, [facility]LOVENOX) [facility] 40 mg 10-31 15:00: [...] 0100, Until Thu10/31/21 at 1245, Routine [facility] lactated ringers IV infusion 1,000 mL 10-31 01:00: 00 10-31 06:52 :16 No 1000mL at 75 mL/hr, 1,000 mL, IV Infusion, CONTINUOUS , Starting on Thu10/30/21 at 1900, Until Thu10/31/21 at 0052, Routine [facility] morpHINE injection 4 mg 10-31 00:43: 35 11-01 00:42 :35 No 4mg 4 mg, Slow IV Push, Q4HPRN, Starting on Thu10/30/21 at 1843, Until Thu10/31/21 at 1842, Routine, Pain (scale 7-10) [facility] HYDROcodone -acetaminop hen (NORCO 5) 5-325 mg tablet 1 tablet 10-31 00:43: 32 11-02 00:42 :32 No 1{tbl} 1 tablet, Oral, Q6HPRN, Starting on Thu10/30/21 at 1843, Until Thu11/01/21 at 1842, Routine, Pain (scale 4-6) [facility] acetaminoph en (TYLENOL) tablet 650 mg 10-31 00:43: 22 Yes 650mg 650 mg, Oral, Q6HPRN, Starting on Thu10/30/21 at 1843, Until Discontinu ed, Routine, Pain (scale 1-3) [facility] ondansetron (ZOFRAN (PF)) injection 4 mg 10-30 21:15: 00 10-30 20:28 :00 No 4mg 4 mg, Slow IV Push, ONCE, 1 dose, On Thu10/30/21 at 1515, [facility] morpHINE injection 4 mg 10-30 21:15: 00 10-30 20:29 :00 No 4mg 4 mg, Slow IV Push, ONCE, 1 dose, On Thu10/30/21 at 1515, STAT [facility] NaCl 0.9% (NS) bolus infusion 1,000 mL 10-30 21:15: 00 10-30 20:29 :00 No 1000mL at 999 mL/hr, 1,000 mL, IV Infusion, ONCE, 1 dose, On Thu10/30/21 at 1515, [facility] iopamidol (ISOVUE 370-500 mL) injection 100 mL 10-30 20:37: 00 10-30 20:35 :00 No [id number] 100mL 100 mL, Intravenou s, ONCE, 1 dose, On Thu10/30/21 at 1445, Routine [facility] lisinopril 10 mg tablet 2-03 00:00: 00 [...] 1 dose, Carrie 05/23/21 at 2245, STAT [facility] NaCl 0.9% (NS) bolus infusion 1,000 mL 0 10 03:00: 00 05-24 03:00 :00 No 1000mL at 999 mL/hr, 1,000 mL, IV Piggyback, ONCE, 1 dose, Carrie 05/23/21 at 2200, STAT [facility] NaCl 0.9% (NS) bolus infusion 500 mL 05-23 03:15: 00 05-23 15:14 :00 No 500mL at 999 mL/hr, 500 mL, IV Piggyback, ONCE, 1 dose, 05/22/21 at 2215, STAT [facility] dexamethaso ne (DECADRON PHOSPHATE) injection 10 mg 04-02 03:30: 00 04-02 02:47 :00 No 10mg 10 mg, Intramuscu lar, ONCE, 1 dose, 04/01/21 at 2230, STAT [facility] ketorolac (TORADOL) injection 60 mg 03-18 04:00: 00 03-18 02:56 :00 No 60mg 60 mg, Intramuscu lar, ONCE, 1 dose, 03/17/21 at 2300, [facility]Y
Fa culty member approving Restricted medication : EMERGENCY ROOM, [facility] ibuprofen 800 mg tablet 03-17 00:00: 00 05-23 00:00 :00 No [id number] 800mg Take 1 tablet by mouth every 8 (eight) hours as needed for Pain (scale 4-6). [facility] acetaminoph en-codeine 300-30 mg tablet 03-17 00:00: 00 03-25 04:59 :00 No [id number] 1{tbl} Take 1 tablet by mouth every 6 (six) hours as needed for Pain (scale 7-10) for up to 7 days. Indication s: acute pain [facility] benzonatate (TESSALON PERLES) capsule 200 mg 11-15 05:00: 00 11-15 04:51 :00 No 200mg 200 mg, Oral, ONCE, 1 dose, Thu11/14/20 at 2300, Routine [facility] Dose Unknown 11-14 00:00: 00 No Dose Unknown 11-14 00:00: 00 No benzonatate 100 mg capsule - 00:00: 00 05-23 00:00 :00 No [id number] 100mg Take 1 capsule by mouth 3 (three) times daily as needed for Cough. [facility] diphenhydrA MINE (BENADRYL) injection 25 mg 09-30 16:00: 00 09-30 15:17 :00 No 25mg 25 mg, Slow IV Push, ONCE, 1 dose, 09/30/20 at 1000, STAT [facility] metoclopram jerilyn HCl (REGLAN) injection 10 mg 09-30 16:00: 00 09-30 15:17 :00 No 10mg 10 mg, Slow IV Push, ONCE, 1 dose, 09/30/20 at 1000, [facility] NaCl 0.9% (NS) bolus infusion 1,000 mL 09-30 15:00: 00 09-30 16:45 :00 No 1000mL at 999 mL/hr, 1,000 mL, IV Infusion, ONCE, 1 dose, 09/30/20 at 0900, [facility] amLODIPine (NORVASC) 10 mg tablet 09-30 00:00: 00 Yes [id number] 10mg Take 1 tablet by mouth daily. [facility] lisinopriL 10 mg tablet 09-30 00:00: 00 11-01 00:00 :00 No [id number] 10mg Take 1 tablet by mouth at bedtime. [facility] Dose Unknown 2019-09 00:00: 00 No Dose Unknown 2019-09 0 00:00: 00 No maalox:diph enhydrAMINE :lidocaine 2 % viscous 1:1:1 (FIRST-MOUT HWASH BLM) oral suspension 15 mL 2019-09 03:30: 00 07-02 03:30 :00 No 15mL 15 mL, Oral, ONCE, 1 dose, 07/01/20 at 2230, [facility] sodium chloride (NS) injection 5 mL 2019-09 03:00: 48 Yes 5mL 5 mL, Intravenou s, PRN, Starting 07/01/20 at 2200, Until Discontinu ed, Routine, IV line flushing [facility] sucralfate 1 gram tablet 2019-09 00:00: 00 07-16 05:59 :00 No [id number] 1g Take 1 tablet by mouth before meals and at bedtime for [address] [facility] lisinopril 10 mg tablet 04-12 00:00: 00 No 1mg amlodipine 10 mg tablet 04-12 00:00: 00 No 1mg No known medications No [facility] Immunizations Ordered Immunization Name Filled Immunization Name Date Status Comments Source SARS-COV-2 COVID-19 PFIZER VACCINE 2021-05-07 00:00:00 Completed [facility] SARS-COV-2 COVID-19 PFIZER VACCINE 2021-05-07 00:00:00 Completed [facility] SARS-COV-2 COVID-19 PFIZER VACCINE 2021-05-07 00:00:00 Completed [facility] SARS-COV-2 COVID-19 PFIZER VACCINE 2021-05-07 00:00:00 Completed [facility] SARS-COV-2 COVID-19 PFIZER VACCINE 2021-05-07 00:00:00 Completed [facility] SARS-COV-2 COVID-19 PFIZER VACCINE 2021-05-07 00:00:00 Completed [facility] SARS-COV-2 COVID-19 PFIZER VACCINE 2021-05-07 00:00:00 Completed [facility] SARS-COV-2 COVID-19 PFIZER VACCINE 2021-05-07 00:00:00 Completed [facility] SARS-COV-2 COVID-19 PFIZER VACCINE 2021-05-07 00:00:00 Completed [facility] SARS-COV-2 COVID-19 PFIZER VACCINE 2021-05-07 00:00:00 Completed [facility] SARS-COV-2 COVID-19 PFIZER VACCINE 2021-05-07 00:00:00 Completed [facility] SARS-COV-2 COVID-19 PFIZER VACCINE 2021-05-07 00:00:00 Completed [facility] SARS-COV-2 COVID-19 PFIZER VACCINE 2021-05-07 00:00:00 Completed [facility] SARS-COV-2 COVID-19 PFIZER VACCINE 2021-05-07 00:00:00 Completed [facility] SARS-COV-2 COVID-19 PFIZER VACCINE 2021-05-07 00:00:00 Completed [facility] SARS-COV-2 COVID-19 PFIZER VACCINE 2021-05-07 00:00:00 Completed [facility] SARS-COV-2 COVID-19 PFIZER VACCINE 2021-05-07 00:00:00 Completed [facility] SARS-COV-2 COVID-19 PFIZER VACCINE 2021-05-07 00:00:00 Completed [facility] SARS-COV-2 COVID-19 PFIZER VACCINE 2021-05-07 00:00:00 Completed [facility] SARS-COV-2 COVID-19 PFIZER VACCINE 2021-05-07 00:00:00 Completed [facility] SARS-COV-2 COVID-19 PFIZER VACCINE 2021-05-07 00:00:00 Completed [facility] SARS-COV-2 COVID-19 PFIZER VACCINE 2021-05-07 00:00:00 Completed [facility] SARS-COV-2 COVID-19 PFIZER VACCINE Unknown Completed [facility] SARS-COV-2 COVID-19 PFIZER VACCINE Unknown Completed [facility] SARS-COV-2 COVID-19 PFIZER VACCINE Unknown Completed [facility] SARS-COV-2 COVID-19 PFIZER VACCINE Unknown Completed [facility] SARS-COV-2 COVID-19 PFIZER VACCINE Unknown Completed [facility] SARS-COV-2 COVID-19 PFIZER VACCINE Unknown Completed [facility] SARS-COV-2 COVID-19 PFIZER VACCINE Unknown Completed [facility] SARS-COV-2 COVID-19 PFIZER VACCINE Unknown Completed [facility] SARS-COV-2 COVID-19 PFIZER VACCINE Unknown Completed [facility] SARS-COV-2 COVID-19 PFIZER VACCINE Unknown Completed [facility] SARS-COV-2 COVID-19 PFIZER VACCINE Unknown Completed [facility] SARS-COV-2 COVID-19 PFIZER VACCINE Unknown Completed [facility] SARS-COV-2 COVID-19 PFIZER VACCINE Unknown Completed [facility] SARS-COV-2 COVID-19 PFIZER VACCINE Unknown Completed [facility] SARS-COV-2 COVID-19 PFIZER VACCINE Unknown Completed [facility] SARS-COV-2 COVID-19 PFIZER VACCINE Unknown Completed [facility] SARS-COV-2 COVID-19 PFIZER VACCINE Unknown Completed [facility] SARS-COV-2 COVID-19 PFIZER VACCINE Unknown Completed [facility] SARS-COV-2 COVID-19 PFIZER VACCINE Unknown Completed [facility] SARS-COV-2 COVID-19 PFIZER VACCINE Unknown Completed [facility] SARS-COV-2 COVID-19 PFIZER VACCINE Unknown Completed [facility] Vital Signs Vital Name Observation Time Observation Value Comments S ource Heart rate 2024-06-08 00:59:00 80 /min [facility] Respiratory rate 2024-06-08 00:59:00 15 /min [facility] Oxygen saturation in Arterial blood by Pulse oximetry 2024-06-08 00:59:00 97 /min [facility] Systolic blood pressure 2024-06-08 00:30:00 149 mm[Hg] [facility] Diastolic blood pressure 2024-06-08 00:30:00 98 mm[Hg] [facility] Body temperature 2024-06-07 21:55:00 36.5 Cindi [facility] Body height 2024-06-07 21:55:00 195.6 cm [facility] Body weight 2024-06-07 21:55:00 121.11 kg [facility] BMI 2024-06-07 21:55:00 31.66 kg/m2 [facility] Systolic blood pressure 2024-04-08 21:13:00 [...] Systolic blood pressure 2024-04-02 17:52:00 140 mm[Hg] [facility] Diastolic blood pressure 2024-04-02 17:52:00 93 mm[Hg] [facility] Heart rate 2024-04-02 17:52:00 80 /min [facility] Body temperature 2024-04-02 17:52:00 37 Cindi [facility] Respiratory rate 2024-04-02 17:52:00 20 /min [facility] Oxygen saturation in Arterial blood by Pulse oximetry 2024-04-02 17:52:00 98 /min [facility] Body height 2024-04-02 13:32:00 195.6 cm [facility] Body weight 2024-04-02 13:32:00 120.3 kg [facility] BMI 2024-04-02 13:32:00 31.45 kg/m2 [facility] Systolic blood pressure 2024-03-30 13:10:00 [...] Systolic blood pressure 2024-02-21 04:48:00 132 mm[Hg] [facility] Diastolic blood pressure 2024-02-21 04:48:00 82 mm[Hg] [facility] Heart rate 2024-02-21 04:48:00 74 /min [facility] Body temperature 2024-02-21 04:48:00 36.72 Cindi [facility] Respiratory rate 2024-02-21 04:48:00 15 /min [facility] Oxygen saturation in Arterial blood by Pulse oximetry 2024-02-21 04:48:00 98 /min [facility] Body height 2024-02-21 02:43:00 195.6 cm [facility] Body weight 2024-02-21 02:43:00 115.667 kg [facility] BMI 2024-02-21 02:43:00 30.24 kg/m2 [facility] Systolic blood pressure 2023-12-17 20:32:00 [...] Systolic blood pressure 2023-12-10 03:57:00 157 mm[Hg] [facility] Diastolic blood pressure 2023-12-10 03:57:00 83 mm[Hg] [facility] Heart rate 2023-12-10 03:57:00 70 /min [facility] Respiratory rate 2023-12-10 03:57:00 16 /min [facility] Oxygen saturation in Arterial blood by Pulse oximetry 2023-12-10 03:57:00 99 /min [facility] Body temperature 2023-12-10 01:12:00 36.83 Cindi [facility] Body height 2023-12-10 01:12:00 195.6 cm [facility] 2023-12-10 01:12:00 122.471 kg [facility] BMI 2023-12-10 01:12:00 32.02 kg/m2 [facility] Systolic blood pressure 2023-10-06 20:55:00 [...] Systolic blood pressure 2023-08-04 05:38:00 164 mm[Hg] [facility] Diastolic blood pressure 2023-08-04 05:38:00 99 mm[Hg] [facility] Heart rate 2023-08-04 05:38:00 70 /min [facility] Body temperature 2023-08-04 05:38:00 37 Cindi [facility] Respiratory rate 2023-08-04 05:38:00 18 /min [facility] Oxygen saturation in Arterial blood by Pulse oximetry 2023-08-04 05:38:00 98 /min [facility] Body height 2023-08-04 02:22:00 195.6 cm [facility] Body weight 2023-08-04 02:22:00 118.389 kg [facility] BMI 2023-08-04 02:22:00 30.95 kg/m2 [facility] Systolic blood pressure 2023-07-25 18:00:00 146 mm[Hg] [facility] Diastolic blood pressure 2023-07-25 18:00:00 90 mm[Hg] [facility] Heart rate 2023-07-25 18:00:00 75 /min [facility] Respiratory rate 2023-07-25 18:00:00 18 /min [facility] Oxygen saturation in Arterial blood by Pulse oximetry 2023-07-25 18:00:00 95 /min [facility] Body temperature 2023-07-25 15:57:00 37.61 Cindi [facility] Body height 2023-07-25 15:57:00 195.6 cm [facility] Body weight 2023-07-25 15:57:00 118.842 kg [facility] BMI 2023-07-25 15:57:00 31.07 kg/m2 [facility] Systolic blood pressure 2023-07-24 21:05:00 140 mm[Hg] [facility] Diastolic blood pressure 2023-07-24 21:05:00 94 mm[Hg] [facility] Heart rate 2023-07-24 21:05:00 71 /min [facility] Body temperature 2023-07-24 21:05:00 36.67 Cindi [facility] Respiratory rate 2023-07-24 21:05:00 18 /min [facility] Oxygen saturation in Arterial blood by Pulse oximetry 2023-07-24 21:05:00 97 /min [facility] Body weight 2023-07-24 18:35:00 115.667 kg [facility] BMI 2023-07-24 18:35:00 30.24 kg/m2 [facility] Systolic blood pressure 2023-07-12 03:30:00 156 mm[Hg] [facility] Diastolic blood pressure 2023-07-12 03:30:00 101 mm[Hg] [facility] Heart rate 2023-07-12 03:30:00 90 /min [facility] Respiratory rate 2023-07-12 03:30:00 20 /min [facility] Oxygen saturation in Arterial blood by Pulse oximetry 2023-07-12 03:30:00 94 /min [facility] Body temperature 2023-07-12 01:57:00 36.67 Cindi [facility] Body weight 2023-07-12 01:57:00 115.667 kg [facility] BMI 2023-07-12 01:57:00 30.24 kg/m2 [facility] Systolic blood pressure 2023-07-10 13:34:00 140 mm[Hg] [facility] Diastolic blood pressure 2023-07-10 13:34:00 95 mm[Hg] [facility] Heart rate 2023-07-10 13:34:00 76 /min [facility] Body temperature 2023-07-10 13:34:00 35.94 Cindi [facility] Body height 2023-07-10 13:34:00 195.6 cm [facility] Body weight 2023-07-10 13:34:00 118.298 kg [facility] BMI 2023-07-10 13:34:00 30.93 kg/m2 [facility] Oxygen saturation in Arterial blood by Pulse oximetry 2023-07-10 13:34:00 97 /min [facility] Systolic blood pressure 2023-07-08 13:43:00 [...] Systolic blood pressure 2023-07-03 12:45:10 149 mm[Hg] [facility] Diastolic blood pressure 2023-07-03 12:45:10 88 mm[Hg] [facility] Heart rate 2023-07-03 12:45:10 88 /min [facility] Respiratory rate 2023-07-03 12:45:10 16 /min [facility] Oxygen saturation in Arterial blood by Pulse oximetry 2023-07-03 12:45:10 97 /min [facility] Body temperature 2023-07-03 09:47:00 36.78 Cindi [facility] Body height 2023-07-03 09:47:00 195.6 cm [facility] Body weight 2023-07-03 09:47:00 113.853 kg [facility] BMI 2023-07-03 09:47:00 29.76 kg/m2 [facility] Systolic blood pressure 2023-05-20 20:08:00 [...] Systolic blood pressure 2023-05-08 03:30:00 133 mm[Hg] [facility] Diastolic blood pressure 2023-05-08 03:30:00 87 mm[Hg] [facility] Heart rate 2023-05-08 03:30:00 70 /min [facility] Respiratory rate 2023-05-08 03:30:00 18 /min [facility] Oxygen saturation in Arterial blood by Pulse oximetry 2023-05-08 03:30:00 97 /min [facility] Body temperature 2023-05-07 22:36:00 36.72 Cindi [facility] Body weight 2023-05-07 22:36:00 113.853 kg [facility] BMI 2023-05-07 22:36:00 30.55 kg/m2 [facility] Systolic blood pressure 2023-05-02 05:00:00 134 mm[Hg] [facility] Diastolic blood pressure 2023-05-02 05:00:00 85 mm[Hg] [facility] Heart rate 2023-05-02 05:00:00 72 /min [facility] Oxygen saturation in Arterial blood by Pulse oximetry 2023-05-02 05:00:00 98 /min [facility] Body temperature 2023-05-02 02:28:00 37.28 Cindi [facility] Respiratory rate 2023-05-02 02:28:00 20 /min [facility] Body height 2023-05-02 02:28:00 193 cm [facility] Body weight 2023-05-02 02:28:00 113.399 kg [facility] BMI 2023-05-02 02:28:00 30.43 kg/m2 [facility] Systolic blood pressure 2023-04-22 18:02:36 130 mm[Hg] [facility] Diastolic blood pressure 2023-04-22 18:02:36 80 mm[Hg] [facility] Heart rate 2023-04-22 18:02:36 68 /min [facility] Body temperature 2023-04-22 18:02:36 36.78 Cindi [facility] Respiratory rate 2023-04-22 18:02:36 17 /min [facility] Oxygen saturation in Arterial blood by Pulse oximetry 2023-04-22 18:02:36 96 /min [facility] Body height 2023-04-22 08:58:00 195.6 cm [facility] Body weight 2023-04-22 08:58:00 113.944 kg [facility] BMI 2023-04-22 08:58:00 29.79 kg/m2 [facility] Systolic blood pressure 2023-04-16 13:30:00 142 mm[Hg] [facility] Diastolic blood pressure 2023-04-16 13:30:00 98 mm[Hg] [facility] Heart rate 2023-04-16 13:30:00 65 /min [facility] Respiratory rate 2023-04-16 13:30:00 17 /min [facility] Oxygen saturation in Arterial blood by Pulse oximetry 2023-04-16 13:30:00 98 /min [facility] Systolic blood pressure 2023-04-16 12:32:00 155 mm[Hg] [facility] Diastolic blood pressure 2023-04-16 12:32:00 108 mm[Hg] [facility] Heart rate 2023-04-16 12:32:00 61 /min [facility] Respiratory rate 2023-04-16 12:32:00 18 /min [facility] Oxygen saturation in Arterial blood by Pulse oximetry 2023-04-16 12:32:00 97 /min [facility] Body temperature 2023-04-16 12:09:00 36.72 Cindi [facility] Body weight 2023-04-16 12:09:00 118.842 kg [facility] BMI 2023-04-16 12:09:00 31.89 kg/m2 [facility] Systolic blood pressure 2023-04-01 08:00:00 130 mm[Hg] [facility] Diastolic blood pressure 2023-04-01 08:00:00 75 mm[Hg] [facility] Heart rate 2023-04-01 08:00:00 75 /min [facility] Respiratory rate 2023-04-01 08:00:00 19 /min [facility] Oxygen saturation in Arterial blood by Pulse oximetry 2023-04-01 08:00:00 96 /min [facility] Body temperature 2023-04-01 05:02:00 36.28 Cindi [facility] Body height 2023-04-01 05:02:00 193 cm [facility] Body weight 2023-04-01 05:02:00 111.585 kg [facility] BMI 2023-04-01 05:02:00 29.94 kg/m2 [facility] Systolic blood pressure 2023-02-13 21:00:00 157 mm[Hg] [facility] Diastolic blood pressure 2023-02-13 21:00:00 89 mm[Hg] [facility] Heart rate 2023-02-13 21:00:00 102 /min [facility] Body temperature 2023-02-13 21:00:00 37.89 Cindi [facility] Respiratory rate 2023-02-13 21:00:00 16 /min [facility] Body weight 2023-02-13 21:00:00 124.286 kg [facility] BMI 2023-02-13 21:00:00 33.35 kg/m2 [facility] Oxygen saturation in Arterial blood by Pulse oximetry 2023-02-13 21:00:00 97 /min [facility] Systolic blood pressure 2022-12-09 06:33:00 152 mm[Hg] [facility] Diastolic blood pressure 2022-12-09 06:33:00 96 mm[Hg] [facility] Heart rate 2022-12-09 06:33:00 60 /min [facility] Respiratory rate 2022-12-09 06:33:00 11 /min [facility] Oxygen saturation in Arterial blood by Pulse oximetry 2022-12-09 06:33:00 96 /min [facility] Body temperature 2022-12-09 04:51:00 37 Cindi [facility] Body height 2022-12-09 04:51:00 193 cm [facility] Body weight 2022-12-09 04:51:00 116.121 kg [facility] BMI 2022-12-09 04:51:00 31.16 kg/m2 [facility] Systolic blood pressure 2022-11-25 04:51:00 148 mm[Hg] [facility] Diastolic blood pressure 2022-11-25 04:51:00 96 mm[Hg] [facility] Heart rate 2022-11-25 04:51:00 71 /min [facility] Body temperature 2022-11-25 04:51:00 37 Cindi [facility] Respiratory rate 2022-11-25 04:51:00 16 /min [facility] Body height 2022-11-25 04:51:00 193 cm [facility] Body weight 2022-11-25 04:51:00 113.399 kg [facility] BMI 2022-11-25 04:51:00 30.43 kg/m2 [facility] Oxygen saturation in Arterial blood by Pulse oximetry 2022-11-25 04:51:00 97 /min [facility] Systolic blood pressure 2022-10-12 21:48:00 152 mm[Hg] [facility] Diastolic blood pressure 2022-10-12 21:48:00 82 mm[Hg] [facility] Heart rate 2022-10-12 21:48:00 70 [facility] Body temperature 2022-10-12 21:48:00 36.89 Cindi [facility] Respiratory rate 2022-10-12 21:48:00 18 /min [facility] Oxygen saturation in Arterial blood by Pulse oximetry 2022-10-12 21:48:00 94 /min [facility] Body height 2022-10-11 17:50:00 193 cm [facility] Body weight 2022-10-11 17:50:00 113.399 kg [facility] BMI 2022-10-11 17:50:00 30.43 kg/m2 [facility] Systolic blood pressure 2022-10-09 07:25:23 138 mm[Hg] [facility] Diastolic blood pressure 2022-10-09 07:25:23 86 mm[Hg] [facility] Heart rate 2022-10-09 07:25:23 73 /min [facility] Respiratory rate 2022-10-09 07:25:23 20 /min [facility] Oxygen saturation in Arterial blood by Pulse oximetry 2022-10-09 07:25:23 98 /min [facility] Body temperature 2022-10-09 04:12:00 37.28 Cindi [facility] Body height 2022-10-09 04:12:00 193 cm [facility] Body weight 2022-10-09 04:12:00 113.399 kg [facility] BMI 2022-10-09 04:12:00 30.43 kg/m2 [facility] Systolic blood pressure 2022-08-20 14:40:00 147 mm[Hg] [facility] Diastolic blood pressure 2022-08-20 14:40:00 95 mm[Hg] [facility] Heart rate 2022-08-20 14:40:00 75 /min [facility] Body temperature 2022-08-20 14:40:00 36.89 Cindi [facility] Respiratory rate 2022-08-20 14:40:00 20 /min [facility] Body height 2022-08-20 14:40:00 190.5 cm [facility] Body weight 2022-08-20 14:40:00 115.667 kg [facility] BMI 2022-08-20 14:40:00 31.87 kg/m2 [facility] Oxygen saturation in Arterial blood by Pulse oximetry 2022-08-20 14:40:00 98 /min [facility] height 2022-07-11 09:30:00 77 [in_i] Commo n [facility] weight 2022-07-11 09:30:00 253.6 [lb_av] Co mmon [facility] temperature 2022-07-11 09:30:00 98.3 [degF] Com mon [facility] bmi 2022-07-11 09:30:00 30.07 kg/m2 Comm on [facility] oximetry 2022-07-11 09:30:00 99 % Commo n [facility] respiratory rate 2022-07-11 09:30:00 18 /min [facility] blood pressure systolic 2022-07-11 09:30:00 135 mm[Hg] [facility] blood pressure diastolic 2022-07-11 09:30:00 81 mm[Hg] [facility] Systolic blood pressure 2022-06-09 15:00:00 141 mm[Hg] [facility] Diastolic blood pressure 2022-06-09 15:00:00 94 mm[Hg] [facility] Heart rate 2022-06-09 15:00:00 59 /min [facility] Respiratory rate 2022-06-09 15:00:00 16 /min [facility] Oxygen saturation in Arterial blood by Pulse oximetry 2022-06-09 15:00:00 97 /min [facility] Body temperature 2022-06-09 11:56:00 36.17 Cindi [facility] Body height 2022-06-09 11:56:00 195.6 cm [facility] Body weight 2022-06-09 11:56:00 127.007 kg [facility] BMI 2022-06-09 11:56:00 33.20 kg/m2 [facility] Systolic blood pressure 2021-11-01 17:12:00 152 mm[Hg] [facility] Diastolic blood pressure 2021-11-01 17:12:00 89 mm[Hg] [facility] Heart rate 2021-11-01 17:12:00 72 /min [facility] Body temperature 2021-11-01 17:12:00 36.17 Cindi [facility] Respiratory rate 2021-11-01 17:12:00 18 /min [facility] Oxygen saturation in Arterial blood by Pulse oximetry 2021-11-01 17:12:00 94 /min [facility] Body height 2021-10-30 23:19:00 195.6 cm [facility] Body weight 2021-10-30 23:19:00 116.983 kg [facility] BMI 2021-10-30 23:19:00 30.58 kg/m2 [facility] Systolic blood pressure 2021-05-24 06:00:00 135 mm[Hg] [facility] Diastolic blood pressure 2021-05-24 06:00:00 97 mm[Hg] [facility] Heart rate 2021-05-24 06:00:00 88 /min [facility] Respiratory rate 2021-05-24 06:00:00 21 /min [facility] Oxygen saturation in Arterial blood by Pulse oximetry 2021-05-24 06:00:00 94 /min [facility] Body temperature 2021-05-24 01:47:00 37.28 Cindi [facility] Body height 2021-05-24 01:47:00 195.6 cm [facility] Body weight 2021-05-24 01:47:00 127.461 kg [facility] BMI 2021-05-24 01:47:00 33.32 kg/m2 [facility] Systolic blood pressure 2021-05-22 23:36:00 154 mm[Hg] [facility] Diastolic blood pressure 2021-05-22 23:36:00 112 mm[Hg] [facility] Heart rate 2021-05-22 23:36:00 97 /min [facility] Body temperature 2021-05-22 23:36:00 36 Cindi [facility] Respiratory rate 2021-05-22 23:36:00 19 /min [facility] Body height 2021-05-22 23:36:00 195.6 cm [facility] Body weight 2021-05-22 23:36:00 127.007 kg [facility] BMI 2021-05-22 23:36:00 33.20 kg/m2 [facility] Oxygen saturation in Arterial blood by Pulse oximetry 2021-05-22 23:36:00 96 /min [facility] Systolic blood pressure 2021-05-02 00:01:00 157 mm[Hg] [facility] Diastolic blood pressure 2021-05-02 00:01:00 93 mm[Hg] [facility] Heart rate 2021-05-02 00:01:00 84 /min [facility] Body temperature 2021-05-02 00:01:00 36.56 Cindi [facility] Respiratory rate 2021-05-02 00:01:00 18 /min [facility] Body weight 2021-05-02 00:01:00 126.554 kg [facility] BMI 2021-05-02 00:01:00 33.08 kg/m2 [facility] Oxygen saturation in Arterial blood by Pulse oximetry 2021-05-02 00:01:00 97 /min [facility] Systolic blood pressure 2021-04-02 01:01:00 144 mm[Hg] [facility] Diastolic blood pressure 2021-04-02 01:01:00 94 mm[Hg] [facility] Heart rate 2021-04-02 01:01:00 89 /min [facility] Body temperature 2021-04-02 01:01:00 37.06 Cindi [facility] Respiratory rate 2021-04-02 01:01:00 18 /min [facility] Body weight 2021-04-02 01:01:00 129.729 kg [facility] BMI 2021-04-02 01:01:00 33.91 kg/m2 [facility] Oxygen saturation in Arterial blood by Pulse oximetry 2021-04-02 01:01:00 100 /min [facility] Systolic blood pressure 2021-04-02 01:01:00 144 mm[Hg] [facility] Diastolic blood pressure 2021-04-02 01:01:00 94 mm[Hg] [facility] Heart rate 2021-04-02 01:01:00 89 /min [facility] Body temperature 2021-04-02 01:01:00 37.06 Cindi [facility] Respiratory rate 2021-04-02 01:01:00 18 /min [facility] Body weight 2021-04-02 01:01:00 129.729 kg [facility] BMI 2021-04-02 01:01:00 33.91 kg/m2 [facility] Oxygen saturation in Arterial blood by Pulse oximetry 2021-04-02 01:01:00 100 /min [facility] Systolic blood pressure 2021-03-18 03:16:13 140 mm[Hg] [facility] Diastolic blood pressure 2021-03-18 03:16:13 80 mm[Hg] [facility] Heart rate 2021-03-18 03:16:13 80 /min [facility] Body temperature 2021-03-18 03:16:13 36.67 Cindi [facility] Respiratory rate 2021-03-18 03:16:13 19 /min [facility] Oxygen saturation in Arterial blood by Pulse oximetry 2021-03-18 03:16:13 99 /min [facility] Body weight 2021-03-18 01:02:00 129.729 kg [facility] BMI 2021-03-18 01:02:00 33.91 kg/m2 [facility] Systolic blood pressure 2021-03-18 03:16:13 140 mm[Hg] [facility] Diastolic blood pressure 2021-03-18 03:16:13 80 mm[Hg] [facility] Heart rate 2021-03-18 03:16:13 80 /min [facility] Body temperature 2021-03-18 03:16:13 36.67 Cindi [facility] Respiratory rate 2021-03-18 03:16:13 19 /min [facility] Oxygen saturation in Arterial blood by Pulse oximetry 2021-03-18 03:16:13 99 /min [facility] Body weight 2021-03-18 01:02:00 129.729 kg [facility] BMI 2021-03-18 01:02:00 33.91 kg/m2 [facility] Oxygen saturation in Arterial blood by Pulse oximetry 2020-11-15 04:31:00 97 /min [facility] Systolic blood pressure 2020-11-15 03:25:00 173 mm[Hg] [facility] Diastolic blood pressure 2020-11-15 03:25:00 97 mm[Hg] [facility] Heart rate 2020-11-15 03:25:00 84 /min [facility] Body temperature 2020-11-15 03:25:00 36.67 Cindi [facility] Respiratory rate 2020-11-15 03:25:00 20 /min [facility] Body weight 2020-11-15 03:25:00 132.45 kg [facility] BMI 2020-11-15 03:25:00 34.63 kg/m2 [facility] Oxygen saturation in Arterial blood by Pulse oximetry 2020-11-15 04:31:00 97 /min [facility] Systolic blood pressure 2020-11-15 03:25:00 173 mm[Hg] [facility] Diastolic blood pressure 2020-11-15 03:25:00 97 mm[Hg] [facility] Heart rate 2020-11-15 03:25:00 84 /min [facility] Body temperature 2020-11-15 03:25:00 36.67 Cindi [facility] Respiratory rate 2020-11-15 03:25:00 20 /min [facility] Body weight 2020-11-15 03:25:00 132.45 kg [facility] BMI 2020-11-15 03:25:00 34.63 kg/m2 [facility] Systolic blood pressure 2020-09-30 16:30:00 121 mm[Hg] [facility] Diastolic blood pressure 2020-09-30 16:30:00 66 mm[Hg] [facility] Heart rate 2020-09-30 16:30:00 72 /min [facility] Respiratory rate 2020-09-30 16:30:00 19 /min [facility] Oxygen saturation in Arterial blood by Pulse oximetry 2020-09-30 16:30:00 94 /min [facility] Body weight 2020-09-30 14:20:00 136.079 kg [facility] BMI 2020-09-30 14:20:00 35.57 kg/m2 [facility] Body temperature 2020-09-30 14:10:00 37.06 Cindi [facility] Systolic blood pressure 2020-09-30 16:30:00 121 mm[Hg] [facility] Diastolic blood pressure 2020-09-30 16:30:00 66 mm[Hg] [facility] Heart rate 2020-09-30 16:30:00 72 /min [facility] Respiratory rate 2020-09-30 16:30:00 19 /min [facility] Oxygen saturation in Arterial blood by Pulse oximetry 2020-09-30 16:30:00 94 /min [facility] Body weight 2020-09-30 14:20:00 136.079 kg [facility] BMI 2020-09-30 14:20:00 35.57 kg/m2 [facility] Body temperature 2020-09-30 14:10:00 37.06 Cindi [facility] Systolic blood pressure 2020-07-02 04:00:00 132 mm[Hg] [facility] Diastolic blood pressure 2020-07-02 04:00:00 84 mm[Hg] [facility] Heart rate 2020-07-02 04:00:00 89 /min [facility] Oxygen saturation in Arterial blood by Pulse oximetry 2020-07-02 04:00:00 95 /min [facility] Body temperature 2020-07-02 02:53:00 36.94 Cindi [facility] Respiratory rate 2020-07-02 02:53:00 18 /min [facility] Body height 2020-07-02 02:53:00 195.6 cm [facility] Body weight 2020-07-02 02:53:00 136.079 kg [facility] BMI 2020-07-02 02:53:00 35.57 kg/m2 [facility] Systolic blood pressure 2020-07-02 04:00:00 132 mm[Hg] [facility] Diastolic blood pressure 2020-07-02 04:00:00 84 mm[Hg] [facility] Heart rate 2020-07-02 04:00:00 89 /min [facility] Oxygen saturation in Arterial blood by Pulse oximetry 2020-07-02 04:00:00 95 /min [facility] Body temperature 2020-07-02 02:53:00 36.94 Cindi [facility] Respiratory rate 2020-07-02 02:53:00 18 /min [facility] Body height 2020-07-02 02:53:00 195.6 cm [facility] Body weight 2020-07-02 02:53:00 136.079 kg [facility] BMI 2020-07-02 02:53:00 35.57 kg/m2 [facility] BP Systolic 2022-07-09 10:22:00 158 [...] 16:20:00 92.00 /min Respiratory Rate 2021-10-17 16:20:00 Heart Rate 2021-03-20 11:57:00 79.00 /min Respiratory Rate 2021-03-20 11:57:00 16.00 /min BP Systolic 2021-03-20 11:57:00 136 mm[Hg] BP Diastolic 2021-03-20 11:57:00 83 mm[Hg] Weight Measured 2021-03-20 11:57:00 280.40 pounds Height Measured 2021-03-20 11:57:00 77.00 inches Body Temperature 2021-03-20 11:57:00 97.70 degrees BP Systolic 2020-11-14 11:12:00 134 mm[Hg] BP [...] Source EKG-12 LEAD 2024-06-08 00:53:[address] [facility] XR CHEST 2 VW 2024-06-07 22:33:08 Luke Clarke [facility] CREATINE KINASE 2024-06-07 22:26:00 Luke Clarke [facility] LIPASE 2024-06-07 22:26:[address] [facility] MAGNESIUM 2024-06-07 22:26:[address] [facility] TROPONIN I 2024-06-07 22:26:[address] [facility] COMP. METABOLIC PANEL ([id number]) 2024-06-07 22:26:00 Luke Clarke [facility] CBC WITH DIFF 2024-06-07 22:26:00 Luke Clarke [facility] D-DIMER 2024-06-07 22:26:[address] [facility] INFLUENZA A/B RSV COVID NAAT 2024-06-07 22:26:00 Luke Clarke [facility] N-TERMINAL PRO-BNP 2024-06-07 22:26:00 Luke Clarke [facility] CT ABDOMEN PELVIS W CONTRAST 2024-04-02 14:49:11 Trevor Taylor [facility] URINALYSIS 2024-04-02 14:18:00 Trevor Taylor [facility] LIPASE 2024-04-02 14:12:00 [facility] MAGNESIUM 2024-04-02 14:12:00 [facility] TROPONIN I 2024-04-02 14:12:00 [facility] COMP. METABOLIC PANEL ([id number]) 2024-04-02 14:12:00 Trevor Taylor Tiffanie [facility] LIPID PANEL ([id number])(TOTAL CHOLESTEROL, TRIGLYCERIDES, HDL) 2024-04-02 14:12:00 Trevor Taylor Tiffanie [facility] CBC WITH DIFF 2024-04-02 14:12:00 Trevor Taylor [facility] LIPASE 2024-02-21 03:08:00 Leti Rivas [facility] COMP. METABOLIC PANEL ([id number]) 2024-02-21 03:08:00 Leti Rivas [facility] CBC WITH DIFF 2024-02-21 03:08:[address] [facility] URINALYSIS 2024-02-21 03:08:00 Leti Rivas [facility] CT ABDOMEN PELVIS W CONTRAST 2023-12-10 02:36:24 Abraham Orantes [facility] COMP. METABOLIC PANEL ([id number]) 2023-12-10 02:05:00 Abraham Orantes [facility] CBC WITH DIFF 2023-12-10 02:05:[address] [facility] URINALYSIS 2023-12-10 02:05:00 Abraham Orantes [facility] CT ABDOMEN PELVIS WO CONTRAST 2023-08-04 04:23:15 Abraham Orantes [facility] BASIC METABOLIC PANEL (NA, K, CL, CO2, GLUCOSE, BUN, CREATININE, CA) 2023-08-04 02:57:00 Abraham Orantes [facility] CBC WITH DIFF 2023-08-04 02:57:[address] [facility] URINALYSIS 2023-08-04 02:57:00 Abraham Orantes [facility] NOTICE OF PRIVACY PRACTICES 2023-08-04 02:16:09 Doctor Unassigned, [place] [facility] CONSENT/REFUSAL FOR DIAGNOSIS AND TREATMENT 2023-08-04 02:15:41 Doctor Unassigned, [place] [facility] LIPASE 2023-07-25 16:37:00 [facility] MAGNESIUM 2023-07-25 16:37:00 [facility] TROPONIN I 2023-07-25 16:37:00 [facility] COMP. METABOLIC PANEL ([id number]) 2023-07-25 16:37:00 Trevor Taylor [facility] CBC WITH DIFF 2023-07-25 16:37:00 Trevor Taylor [facility] URINALYSIS 2023-07-25 16:37:00 [facility] CONSENT/REFUSAL FOR DIAGNOSIS AND TREATMENT 2023-07-25 15:41:41 Doctor Unassigned, [place] [facility] US GALL BLADDER 2023-07-24 22:46:02 Johnathan Avila [facility] URINALYSIS 2023-07-24 20:10:00 Johnathan Avila [facility] EXTRA TUBE URINE CULTURE 2023-07-24 20:10:00 Ember Avila [facility] LIPASE 2023-07-24 20:09:00 Johnathan Avila [facility] COMP. METABOLIC PANEL ([id number]) 2023-07-24 20:09:00 Johnathan Avila [facility] LIPID PANEL ([id number])(TOTAL CHOLESTEROL, TRIGLYCERIDES, HDL) 2023-07-24 20:09:00 Johnathan Avila [facility] CBC WITH DIFF 2023-07-24 20:09:00 Johnathan Avila [facility] CONSENT/REFUSAL FOR DIAGNOSIS AND TREATMENT 2023-07-24 18:31:11 Doctor Unassigned, [place] [facility] XR CHEST 2 VW 2023-07-12 03:54:00 [facility] 2023-07-12 02:31:00 [facility] TROPONIN I 2023-07-12 02:14:00 Norm Saleh [facility] COMP. METABOLIC PANEL ([id number]) 2023-07-12 02:14:00 Norm Saleh [facility] CBC WITH DIFF 2023-07-12 02:14:[address] [facility] COVID-19 (ID NOW RAPID TESTING) 2023-07-12 02:14:00 Norm Saleh [facility] CONSENT/REFUSAL FOR DIAGNOSIS AND TREATMENT 2023-07-12 01:47:09 Doctor Unassigned, [place] [facility] CONSENT FOR MEDICAL TREATMENT OF A MINOR 2023-07-10 05:01:00 Doctor Unassigned, [place] [facility] CT ABDOMEN PELVIS W CONTRAST 2023-07-03 10:43:57 Haresh Santamaria [facility] URINALYSIS 2023-07-03 10:23:00 Haresh Santamaria [facility] LIPASE 2023-07-03 10:11:00 Haresh Santamaria [facility] COMP. METABOLIC PANEL ([id number]) 2023-07-03 10:11:00 Haresh Santamaria [facility] CBC WITH DIFF 2023-07-03 10:11:00 Haresh Santamaria [facility] CONSENT/REFUSAL FOR DIAGNOSIS AND TREATMENT 2023-07-03 09:36:41 Doctor Unassigned, [place] [facility] CT ABDOMEN PELVIS W CONTRAST 2023-05-08 02:15:59 Riya Joseph [facility] HB ABO GROUPING 2023-05-08 01:25:00 Elvin Joseph [facility] LIPASE 2023-05-08 01:19:00 Elvin Joseph Marie [facility] COMP. METABOLIC PANEL ([id number]) 2023-05-08 01:19:00 Riya Joseph Connie [facility] CBC WITH DIFF 2023-05-08 01:19:00 Elvin Joseph Marie [facility] COVID-19 (ID NOW RAPID TESTING) 2023-05-08 01:19:00 Riya Joseph [facility] CONSENT/REFUSAL FOR DIAGNOSIS AND TREATMENT 2023-05-07 22:22:14 Doctor Unassigned, [place] [facility] LIPASE 2023-05-02 03:01:00 Aydin Matos [facility] COMP. METABOLIC PANEL ([id number]) 2023-05-02 03:01:00 Aydin Matos [facility] ETHANOL 2023-05-02 03:01:00 Aydin Matos [facility] CBC WITH DIFF 2023-05-02 03:01:00 Aydin Matos [facility] URINALYSIS 2023-05-02 03:01:00 Aydin Matos [facility] URINE DRUG (IMMUNOASSAY) - COMPREHENSIVE DRUG SCREEN W/O REFLEX 2023-05-02 03:01[facility]ATMENT 2023-05-02 02:28:20 Doctor Unassigned, [place] [facility] BASIC METABOLIC PANEL (NA, K, CL, CO2, GLUCOSE, BUN, CREATININE, CA) 2023-04-22 16:47:00 Natali Alexander [facility] LIPASE 2023-04-22 12:58:00 Natali Alexander [facility] BASIC METABOLIC PANEL (NA, K, CL, CO2, GLUCOSE, BUN, CREATININE, CA) 2023-04-22 12:58:00 Natali Alexander [facility] URINALYSIS 2023-04-22 11:44:00 Abraham Orantes [facility] CREATINE KINASE 2023-04-22 09:06:00 Natali Alexander [facility] LIPASE 2023-04-22 09:06:00 Natali Alexander [facility] COMP. METABOLIC PANEL ([id number]) 2023-04-22 09:06:00 Abraham Orantes [facility] CBC WITH DIFF 2023-04-22 09:06:[address] [facility] CONSENT/REFUSAL FOR DIAGNOSIS AND TREATMENT 2023-04-22 08:52:58 Doctor Unassigned, [place] [facility] LIPASE 2023-04-16 12:30:00 Christa [facility] TROPONIN I 2023-04-16 12:30:00 Christa [facility] COMP. METABOLIC PANEL ([id number]) 2023-04-16 12:30:00 [facility] 2023-04-16 12:30:[address] [facility] CONSENT/REFUSAL FOR DIAGNOSIS AND TREATMENT 2023-04-16 11:48:23 Doctor Unassigned, [place] [facility] LIPASE 2023-04-01 05:08:00 Hemalatha [facility] TROPONIN I 2023-04-01 05:08:00 Hemalatha [facility] COMP. METABOLIC PANEL ([id number]) 2023-04-01 05:08:00 Hemalatha Mora [facility] CBC WITH DIFF 2023-04-01 05:08:00 Hemalatha Mora [facility] URINALYSIS 2023-04-01 05:08:00 Hemalatha [facility] CONSENT/REFUSAL FOR DIAGNOSIS AND TREATMENT 2023-04-01 04:51:45 Doctor Unassigned, [place] [facility] ASSIGNMENT OF BENEFITS 2023-02-13 21:19:49 Docto r Unassigned, [place] [facility] POCT GLUCOSE (AUTOMATED) 2023-02-13 21:00:00 Alan Gonzales [facility] CONSENT/REFUSAL FOR DIAGNOSIS AND TREATMENT 2023-02-13 20:50:30 Doctor Unassigned, [place] [facility] REFERRAL- REQUEST/RESPONSE 2023-01-05 05:01:00 Doctor Unassigned, [place] [facility] LIPASE 2022-12-09 05:03:[address] [facility] COMP. METABOLIC PANEL ([id number]) 2022-12-09 05:03:00 Soham Clarke [facility] CBC WITH DIFF 2022-12-09 05:03:00 [facility] 2022-12-09 05:03:[address] [facility] NOTICE OF PRIVACY PRACTICES 2022-12-09 04:46:36 Doctor Unassigned, [place] [facility] CONSENT/REFUSAL FOR DIAGNOSIS AND TREATMENT 2022-12-09 04:46:16 Doctor Unassigned, [place] [facility] CT ABDOMEN PELVIS W CONTRAST 2022-11-25 05:38:20 Lion Nascimento [facility] LIPASE 2022-11-25 05:06:00 Lion Nascimento [facility] HEPATIC FUNCTION PANEL ([id number]) (ALB,T.PRO,BILI T,BU/BC,ALT,AST,ALK PHOS) 2022-11-25 05:06:00 [facility] BASIC METABOLIC PANEL (NA, K, CL, CO2, GLUCOSE, BUN, CREATININE, CA) 2022-11-25 05:06:00 Lion Nascimento [facility] CBC WITH DIFF 2022-11-25 05:06:00 Lion Nascimento [facility] URINALYSIS 2022-11-25 05:06:00 Lion Nascimento [facility] CONSENT/REFUSAL FOR DIAGNOSIS AND TREATMENT 2022-11-25 04:35:51 Doctor Unassigned, [place] [facility] EXTERNAL PROVIDER RECORDS 2022-10-23 06:01:00 Do ctor Unassigned, [place] [facility] CBC WITH DIFF 2022-10-12 21:26:00 Lb [facility] PROSTATIC SPECIFIC ANTIGEN 2022-10-12 10:48:00 Jonh Roman [facility] HEPATIC FUNCTION PANEL ([id number]) (ALB,T.PRO,BILI T,BU/BC,ALT,AST,ALK PHOS) 2022-10-12 10:48:00 Jana [facility] BASIC METABOLIC PANEL (NA, K, CL, CO2, GLUCOSE, BUN, CREATININE, CA) 2022-10-12 10:48:00 Jana [facility] CBC WITH DIFF 2022-10-12 10:48:00 Lb Bates [facility] HEPATIC FUNCTION PANEL ([id number]) (ALB,T.PRO,BILI T,BU/BC,ALT,AST,ALK PHOS) 2022-10-11 23:53:00 Jana [facility] BASIC METABOLIC PANEL (NA, K, CL, CO2, GLUCOSE, BUN, CREATININE, CA) 2022-10-11 23:53:00 Jana [facility] US GALL BLADDER 2022-10-11 22:28:58 Jana [facility] ABORH CONFIRMATION (LAB ONLY) 2022-10-11 21:24:00 Jana [facility] URINALYSIS 2022-10-11 21:23:[address] [facility] HB ABO GROUPING 2022-10-11 20:41:00 Jana [facility] CBC WITH DIFF 2022-10-11 20:35:00 Lb Bates [facility] CT ANGIOGRAM ABDOMEN/PELVIS 2022-10-11 14:52:00 Aydin Matos [facility] HB ECG ROUTINE & RHYTHM STRIP 2022-10-11 13:48:04 Aydin Matos [facility] LIPASE 2022-10-11 13:42:00 A[facility] TROPONIN I 2022-10-11 13:42:00 Aydin [facility] COMP. METABOLIC PANEL ([id number]) 2022-10-11 13:42:00 Aydin Matos [facility] LIPID PANEL ([id number])(TOTAL CHOLESTEROL, TRIGLYCERIDES, HDL) 2022-10-11 13:42:00 Lb Bates [facility] CBC WITH DIFF 2022-10-11 13:42:00 Aydin Matos [facility] PROTHROMBIN TIME / INR 2022-10-11 13:42:00 Mahnaz Matos [facility] ACTIVATED PARTIAL THRMPLAS TAE 2022-10-11 13:42:00 Aydin Matos [facility] N-TERMINAL PRO-BNP 2022-10-11 13:42:00 Aydin Matos [facility] URINE DRUG (IMMUNOASSAY) - COMPREHENSIVE DRUG SCREEN W/O REFLEX 2022-10-11 13:42:00 Aydin Matos [facility] CONSENT/REFUSAL FOR DIAGNOSIS AND TREATMENT 2022-10-11 12:24:48 Doctor Unassigned, [place] [facility] CT ABDOMEN PELVIS W CONTRAST 2022-10-09 06:30:25 Abraham Orantes [facility] LIPASE 2022-10-09 05:24:00 Abraham Orantes [facility] COMP. METABOLIC PANEL ([id number]) 2022-10-09 05:24:00 Abraham Orantes [facility] CBC WITH DIFF 2022-10-09 05:24:[address] [facility] URINALYSIS 2022-10-09 05:24:00 Abraham Orantes [facility] CONSENT/REFUSAL FOR DIAGNOSIS AND TREATMENT 2022-10-09 03:56:57 Doctor Unassigned, [place] [facility] COMP. METABOLIC PANEL ([id number]) 2022-08-20 15:11:00 Trevor Taylor [facility] CBC WITH DIFF 2022-08-20 15:11:00 Trevor Taylor [facility] URINALYSIS 2022-08-20 15:11:00 Trevor Taylor [facility] CONSENT/REFUSAL FOR DIAGNOSIS AND TREATMENT 2022-08-20 14:32:58 Doctor Unassigned, [place] [facility] CT ABDOMEN PELVIS W CONTRAST 2022-06-09 13:12:35 Soham Clrake [facility] LIPASE 2022-06-09 12:48:[address] [facility] COMP. METABOLIC PANEL ([id number]) 2022-06-09 12:48:00 Soham Clarke [facility] CBC WITH DIFF 2022-06-09 12:48:00 [facility] 2022-06-09 12:48:[address] [facility] NOTICE OF PRIVACY PRACTICES 2022-06-09 11:47:39 Doctor Unassigned, [place] [facility] CONSENT/REFUSAL FOR DIAGNOSIS AND TREATMENT 2022-06-09 11:47:18 Doctor Unassigned, [place] [facility] PHOSPHORUS 2021-11-01 09:55:00 Darshan Jerrica [facility] MAGNESIUM 2021-11-01 09:55:00 Darshan [facility] BASIC METABOLIC PANEL (NA, K, CL, CO2, GLUCOSE, BUN, CREATININE, CA) 2021-11-01 09:55:[facility] 2021-11-01 09:55:00 Jessi Sextonthia [facility] PHOSPHORUS 2021-10-31 08:45:00 Roxanne Swenson [facility] CREATINE KINASE 2021-10-31 08:45:[address] [facility] MAGNESIUM 2021-10-31 08:45:[address] [facility] TROPONIN I 2021-10-31 08:45:00 Roxanne Swenson [facility] COMP. METABOLIC PANEL ([id number]) 2021-10-31 08:45:00 Roxanne Swenson [facility] CBC WITH DIFF 2021-10-31 08:45:00 Emelia Gallego [facility] PROTHROMBIN TIME / INR 2021-10-31 08:45:00 Ramos Swenson [facility] N-TERMINAL PRO-BNP 2021-10-31 08:45:00 Roxanne Swenson [facility] LACTIC ACID WHOLE BLOOD 2021-10-31 08:45:00 Erwin Swenson [facility] FECES CULTURE 2021-10-30 22:27:[address] [facility] OCCULT (GUAIAC) BLOOD 2021-10-30 22:27:00 Juany Hernandez [facility] CLOSTRIDIUM DIFFICILE TOXIN 2021-10-30 22:27:00 Monica Hernandez [facility] COVID-19 (ID NOW RAPID TESTING) 2021-10-30 21:24:00 Madison Sepulveda [facility] LAB ONLY COVID INTERPRETATION 2021-10-30 21:24:00 Madison Sepulveda [facility] CT ABDOMEN PELVIS W CONTRAST 2021-10-30 20:44:09 Madison Sepulveda [facility] LIPASE 2021-10-30 20:25:00 Madison Sepulveda [facility] TROPONIN I 2021-10-30 20:25:00 Roxanne Swenson [facility] COMP. METABOLIC PANEL ([id number]) 2021-10-30 20:25:00 Madison Sepulveda [facility] CBC WITH DIFF 2021-10-30 20:25:00 Madison Sepulveda [facility] URINALYSIS 2021-10-30 20:25:00 Madison Sepulveda [facility] N-TERMINAL PRO-BNP 2021-10-30 20:25:00 Roxanne Swenson [facility] CONSENT/REFUSAL FOR DIAGNOSIS AND TREATMENT 2021-10-30 19:24:05 Doctor Unassigned, [place] [facility] CREATINE KINASE 2021-05-24 04:40:00 Felipe Ortega [facility] BASIC METABOLIC PANEL (NA, K, CL, CO2, GLUCOSE, BUN, CREATININE, CA) 2021-05-24 04:40:00 Felipe Ortega [facility] URINALYSIS 2021-05-24 02:14:00 Felipe Ortega [facility] CREATINE KINASE 2021-05-24 01:53:00 [facility] TROPONIN I 2021-05-24 01:53:00 Felipe Ortega [facility] COMP. METABOLIC PANEL ([id number]) 2021-05-24 01:53:00 Felipe Ortega [facility] CBC WITH DIFF 2021-05-24 01:53:00 Felipe Orteag Uni [facility] N-TERMINAL PRO-BNP 2021-05-24 01:53:00 Felipe Ortega [facility] ASSIGNMENT OF BENEFITS 2021-05-23 00:46:04 Docto r Unassigned, [place] [facility] CONSENT/REFUSAL FOR DIAGNOSIS AND TREATMENT 2021-05-22 23:31:57 Doctor Unassigned, [place] [facility] SARS-COV-2 COVID-19 VACCINE,0.3ML,IM (PFIZER) 2021-05-07 16:12:40 Doctor Unassigned, [place] [facility] RAPID STREP SCREEN FOR GROUP A 2021-05-02 00:07:00 Aydin Matos [facility] COVID-19 (ID NOW RAPID TESTING) 2021-05-02 00:07:00 Aydin Matos [facility] CONSENT/REFUSAL FOR DIAGNOSIS AND TREATMENT 2021-05-01 23:56:07 Doctor Unassigned, [place] [facility] RAPID STREP SCREEN FOR GROUP A 2021-04-02 01:05:00 Nikhil Blanton [facility] COVID-19 (ID NOW RAPID TESTING) 2021-04-02 01:05:00 Nikhil Blanton [facility] NOTICE OF PRIVACY PRACTICES 2021-04-02 00:56:18 Doctor Unassigned, [place] [facility] CONSENT/REFUSAL FOR DIAGNOSIS AND TREATMENT 2021-04-02 00:49:05 Doctor Unassigned, [place] [facility] XR WRIST 3+ VW LEFT 2021-03-18 01:19:59 Destini Blanton [facility] URINALYSIS 2021-03-18 01:12:00 Nikhil Blanton [facility] CONSENT/REFUSAL FOR DIAGNOSIS AND TREATMENT 2021-03-18 00:56:01 Doctor Unassigned, [place] [facility] XR CHEST 1 VW 2020-11-15 03:48:28 Hsu Darnell R [facility] CONSENT/REFUSAL FOR DIAGNOSIS AND TREATMENT 2020-11-15 03:11:27 Doctor Unassigned, [place] [facility] CT HEAD WO CONTRAST 2020-09-30 15:00:43 Jesisca Siddiqui ra [facility] XR CHEST 1 VW 2020-09-30 14:37:13 Jessy Siddiqui U [facility] LIPASE 2020-09-30 14:25:00 Jessy Siddiqui Un [facility] TROPONIN I 2020-09-30 14:25:00 Jessy Siddiqui [facility] COMP. METABOLIC PANEL ([id number]) 2020-09-30 14:25:00 Jessy Siddiqui [facility] CBC WITH DIFF 2020-09-30 14:25:00 Jessy Siddiqui U [facility] N-TERMINAL PRO-BNP 2020-09-30 14:25:00 Solitario Siddiqui [facility] NOTICE OF PRIVACY PRACTICES 2020-09-30 13:57:13 Doctor Unassigned, [place] [facility] CONSENT/REFUSAL FOR DIAGNOSIS AND TREATMENT 2020-09-30 13:55:57 Doctor Unassigned, [place] [facility] EKG-12 LEAD 2020-07-02 03:20:42 Felipe Ortega [facility] LIPASE 2020-07-02 03:05:00 Abraham Orantes [facility] TROPONIN I 2020-07-02 03:05:00 Fleipe Ortega [facility] COMP. METABOLIC PANEL ([id number]) 2020-07-02 03:05:00 Abraham Orantes [facility] CBC WITH DIFF 2020-07-02 03:05:[address] [facility] NOTICE OF PRIVACY PRACTICES 2020-07-02 02:48:43 Doctor Unassigned, [place] [facility] CONSENT/REFUSAL FOR DIAGNOSIS AND TREATMENT 2020-07-02 02:46:14 Doctor Unassigned, [place] [facility] Plan of Care Planned Activity Planned Date Details Comments Source Goal Plan of Care Note [code = 25440-6] Goal Plan of Care Note [code = 46135-4] Goal Plan of Care Note [code = 72793-4] Goal Plan of Care Note [code = 97464-5] Goal Plan of Care Note [code = 11050-6] Goal Plan of Care Note [code = 14919-9] Goal Plan of Care Note [code = 07140-2] Goal Plan of Care Note [code = 38140-3] Goal Plan of Care Note [code = 09080-9] Goal Plan of Care Note [code = 76736-1] Goal Plan of Care Note [code = 18736-0] Goal Plan of Care Note [code = 54262-7] Goal Plan of Care Note [code = 30778-5] Goal Plan of Care Note [code = 29114-0] Goal Plan of Care Note [code = 27798-6] Encounters Start Date/Time End Date/Time Encounter Type Admission Type Attending Clinicians Care Facility Care Department Encounter ID Source 2022-07-29 14:17:02 [facility] [id number] [facility] 2022-07-11 08:20:03 Outpatient [facility] [id number] [facility] 2024-08-30 00:00:00 2024-08-30 00:00:00 Outpatient HAYDEN ORTIZ [id number] Luz Maria Ng 2024-08-29 09:30:00 2024-08-29 09:30:00 Outpatient OMARI RAZA [id number] Luz Maria Ng 2024-08-05 08:30:00 2024-08-05 08:30:00 Outpatient ADRI TAYLOR [id number] Luz Maria [facility] 2024-08-03 00:00:00 2024-08-03 00:00:00 Outpatient MD LUZ MARIA AN [id number] [facility] 2024-07-29 00:00:00 2024-07-29 00:00:00 Outpatient HAYDEN ORTIZ LUZ MARIA [facility] [id number] [facility] 2024-07-28 00:00:00 2024-07-28 00:00:00 Outpatient YUDY ORTIZHERACLIO HOLLIDAY [id number] [facility] 2024-07-28 00:00:00 2024-07-28 00:00:00 Outpatient LEANDRO MANN [id number] [facility] 2024-07-20 08:45:00 2024-07-20 08:45:00 Outpatient ANGEL HAYDEN HOLLIDAY [id number] [facility] 2024-07-07 00:00:00 2024-07-07 00:00:00 Outpatient ANGEL HAYDEN HOLLIDAY [id number] [facility] 2024-06-16 00:00:00 2024-06-16 00:00:00 Outpatient YUDY ORTIZHERACLIO HOLLIDAY [id number] Luz Maria [facility] 2024-06-07 16:57:00 2024-06-07 20:05:00 Emergency X LUKE CLARKE JOSHUA [facility] [id number] [facility] 2024-06-07 16:57:00 2024-06-07 20:05:00 Emergency Luke Clarke AT [facility] [id number] [facility] 2024-05-30 09:45:00 2024-05-30 09:45:00 Outpatient REYESBirgit HAYDEN HOLLIDAY [id number] [facility] 2024-05-26 08:30:00 2024-05-26 08:30:00 Outpatient HARSHIL STYLES [id number] [facility] 2024-05-26 00:00:00 2024-05-26 00:00:00 Outpatient ADRI TAYLOR LUZ MARIA HOLLIDAY [id number] Luz [facility] 2024-05-25 00:00:00 2024-05-25 00:00:00 Outpatient HAYDEN ORTIZ LUZ MARIA HOLLIDAY [id number] [facility] 2024-05-24 15:00:00 2024-05-24 15:00:00 Outpatient HAYDEN ORTIZ LUZ MARIA HOLLIDAY [id number] Luz Maria [facility] 2024-05-23 00:00:00 2024-05-23 00:00:00 Outpatient MD LUZ MARIA AN [id number] Luz Maria [facility] 2024-05-18 11:10:00 2024-05-18 11:10:00 Outpatient NEPTALIFOUZIA LUZ MARIA HOLLIDAY [id number] [facility] 2024-05-12 00:00:00 2024-05-12 00:00:00 Outpatient LUZ MARIA HOLLIDAY [id number] [facility] 2024-05-09 00:00:00 2024-05-09 00:00:00 Outpatient HAYDEN ORTIZ LUZ MARIA HOLLIDAY [id number] [facility] 2024-05-05 00:00:00 2024-05-05 00:00:00 Outpatient GIBRAN MCADAMS LUZ MARIA HOLLIDAY [id number] Luz Maria [facility] 2024-05-04 08:30:00 2024-05-04 08:30:00 Outpatient LUZ MARIA HOLLIDAY [id number] Luz Maria ybedith [facility] 2024-04-29 00:00:00 2024-04-29 00:00:00 Outpatient HAYDEN ORTIZ LUZ MARIA HOLLIDAY [id number] Luz Maria Seybedith [facility] 2024-04-22 08:00:00 2024-04-22 08:00:00 Outpatient LUZ MARIA HOLLIDAY [id number] Luz Maria Seybedith [facility] 2024-04-12 09:40:00 2024-04-12 09:40:00 Outpatient BROOK ALLEN [id number] Luz Maria Seybold 2024-04-11 08:00:00 2024-04-11 08:00:00 Outpatient LUZ MARIA HOLLIDAY [id number] [facility] 2024-04-11 00:00:00 2024-04-11 00:00:00 Outpatient GIBRAN MCADAMS [id number] Luz [facility] 2024-04-08 16:30:00 2024-04-08 16:30:00 Outpatient LEANDRO MANN LUZ MARIA HOLLIDAY [id number] Luz [facility] 2024-04-04 08:10:00 2024-04-04 08:10:00 Outpatient LAB90 LUZ MARIA HOLLIDAY [id number] Luz Maria [facility] 2024-04-02 08:39:00 2024-04-02 12:55:00 Emergency X Trevor TAYLOR K [facility] [id number] [facility] 2024-04-02 08:39:00 2024-04-02 12:55:00 Emergency Trevor Taylor Tiffanie [facility] 1.2.840.114 350.1.13.10 4.2.7.2.[id number] [facility] 2024-04-02 00:00:00 2024-04-02 00:00:00 Outpatient GERALD VIDAL [id number] [facility]-30 09:00:00 2024-03-30 09:00:00 Outpatient LAB47 LUZ MARIA HOLLIDAY [id number] Luz Maria [facility] 2024-03-30 08:30:00 2024-03-30 08:30:00 Outpatient GIBRAN MCADAMS [id number] [facility] 2024-03-30 00:00:00 2024-03-30 00:00:00 Outpatient GIBRAN MCADAMS [id number] Luz Maria [facility] 2024-03-30 00:00:00 2024-03-30 00:00:00 Outpatient HAYDEN ORTIZ [id number] Luz Maria [facility] 2024-03-28 00:00:00 2024-03-28 00:00:00 Outpatient HAYDEN ORTIZ [id number] Luz Maria Ng 2024-03-23 00:00:00 2024-03-23 00:00:00 Outpatient HAYDEN ORTIZ LUZ MARIA [id number] Luz Maria Ng 2024-02-29 00:00:00 2024-02-29 13:30:22 Letter (Out) Karl Ferguson [facility] 1.2.840.114 350.1.13.10 4.2.7.2.[id number] [facility] 2024-02-24 00:00:00 2024-02-24 00:00:00 Outpatient YUSUFMELINA LUZ MARIA [id number] Luz [facility] 2024-02-24 00:00:00 2024-02-24 00:00:00 Outpatient REYESHAYDEN Genao LUZ MARIA HOLLIDAY [id number] Luz [facility] 2024-02-22 00:00:00 2024-02-22 14:50:01 Letter (Out) Elida Lewis [facility] 1..840.114 350.1.13.10 4.2.7.2.[id number] [facility] 2024-02-22 00:00:00 2024-02-22 00:00:00 Outpatient ANGELHAYDEN LUZ MARIA HOLLIDAY [id number] Luz [facility] 2024-02-20 21:47:00 2024-02-20 23:54:00 Emergency X LETI RIVAS ERICCA [facility] [id number] [facility] 2024-02-20 21:47:00 2024-02-20 23:54:00 Emergency Leti Rivas [facility] 1.2.840.114 350.1.13.10 4.2.7.2.[id number] [facility] 2024-01-26 00:00:00 2024-01-26 00:00:00 Outpatient PREZASHAYDEN [id number] [facility] 2024-01-15 00:00:00 2024-01-15 00:00:00 Outpatient PREZAHAYDEN Genao [id number] [facility]z [facility] 2023-12-28 00:00:00 2023-12-28 00:00:00 Outpatient PREZAHAYDEN Genao [id number] Lu[facility] 2023-12-18 00:00:00 2023-12-18 00:00:00 Outpatient LUZ MARIA HOLLIDAY [id number] Luz [facility] 2023-12-17 15:30:00 2023-12-17 15:30:00 Outpatient PREZAHAYDEN Genao [id number] Luz [facility] 2023-12-11 00:00:00 2023-12-11 00:00:00 Outpatient PREZAHAYDEN Genao [id number] Luz Maria [facility] 2023-12-09 20:14:00 2023-12-09 23:50:00 Emergency X RUDY ORANTESMAGDIEL [facility] E[facility] [id number] [facility] 2023-12-09 20:14:00 2023-12-09 23:50:00 Emergency Abraham Orantes S [facility] .2.840.114 350.1.13.10 4.2.7.2.[id number] [facility] 2023-11-24 00:00:00 2023-11-24 00:00:00 Outpatient PREZAHAYDEN Genao [id number] Luz Maria [facility] 2023-11-18 00:00:00 2023-11-18 00:00:00 Letter (Out) Chavez Turner [facility] 1.2.840.114 350.1.13.10 4.2.7.2.[id number] [facility] 2023-11-10 14:00:00 2023-11-10 14:00:00 Outpatient PREZAHAYDEN Genao LUZ MARIA [id number] Luz Maria [facility] 2023-11-09 00:00:00 2023-11-09 00:00:00 Outpatient HAYDEN ORTIZ LUZ MARIA HOLLIDAY [id number] Luz Maria [facility] 2023-11-06 00:00:00 2023-11-06 00:00:00 Outpatient ANGEL HAYDEN HOLLIDAY [id number] Luz Maria [facility] 2023 11:30:00 2023 11:30:00 Outpatient CALLIE THORNE JULIANA [facility] [id number] [facility] 2023-10-16 00:00:00 2023-10-16 00:00:00 Outpatient HAYDEN ORTIZ LUZ MARIA HOLLIDAY [id number] Luz Maria [facility] 2023-10-13 00:00:00 2023-10-13 00:00:00 Outpatient LUZ MARIA HOLLIDAY [id number] [facility] 2023-10-06 14:30:00 2023-10-06 14:30:00 Outpatient HAYDEN ORTIZ LUZ MARIA HOLLIDAY [id number] [facility] 2023-08-14 00:00:00 2023-08-14 00:00:00 Outpatient MERLYN WORTHINGTON [facility] [id number] [facility] 2023-08-13 00:00:00 2023-08-13 00:00:00 Patient Secure Msg Doctor Unassigned, [place] [facility] 1.2.840.114 350.1.13.10 4.2.7.2.[id number] [facility] 2023-08-11 16:15:00 2023-08-11 16:15:00 Outpatient ADAN CHESTER [id number] [facility] 2023-08-03 20:26:00 2023-08-04 00:05:00 Emergency X ABRAHAM ORANTES [facility] [id number] [facility] 2023-08-03 20:26:00 2023-08-04 00:05:00 Emergency Abraham Orantes [facility] 1.2.840.114 350.1.13.10 4.2.7.2.[id number] [facility] 2023-08-03 00:00:00 2023-08-03 00:00:00 Outpatient KIARA RICHARDSON [id number] Luz Maria Ng 2023-08-03 00:00:00 2023-08-03 00:00:00 Orders Only Doctor Unassigned, [place] [facility] 1.2.840.114 350.1.13.10 4.2.7.2.[id number] [facility] 2023-07-25 09:58:00 2023-07-25 12:56:00 Emergency X Trevor TAYLOR [facility] E[facility] [id number] [facility] 2023-07-25 09:58:00 2023-07-25 12:56:00 Emergency ClaudiaTrevor seymour [facility] 1.2.840.114 350.1.13.10 4.2.7.2.[id number] [facility] 2023-07-24 12:36:00 2023-07-24 17:49:00 Emergency X JOHNATHAN AVILA [facility] [id number] [facility] 2023-07-24 12:36:00 2023-07-24 17:49:00 Emergency Johnathan Avila [facility] 1..840.114 350.1.13.10 4.2.7.2.[id number] [facility] 2023-07-24 14:30:00 2023-07-24 14:30:00 Outpatient ADAN CHESTER [id number] Luz Maria Ng 2023-07-24 00:00:00 2023-07-24 00:00:00 Telephone [facility] 1.2840.114 350.1.13.10 4.2.7.2.[id number] [facility] 2023-07-23 05:22:00 2023-07-23 10:02:00 Emergency EM Kristian Paul [facility] [id number] [facility] 2023-07-22 00:00:00 2023-07-22 00:00:00 Telephone [facility] 1.2840.114 350.1.13.10 4.2.7.2.[id number] [facility] 2023-07-22 00:00:00 2023-07-22 00:00:00 Patient Secure Msg Doctor Unassigned, [place] [facility] 1.2840.114 350.1.13.10 4.2.7.2.[id number] [facility] 2023-07-20 00:00:00 2023-07-20 00:00:00 Telephone [facility] 1.2840.114 350.1.13.10 4.2.7.2.[id number] [facility] 2023-07-17 13:45:00 2023-07-17 13:45:00 Outpatient NANCY BRENNAN [id number] Luz Maria Ng 2023-07-11 20:53:00 2023-07-11 23:38:00 Emergency X STEPHIE HEWITT [facility] [id number] [facility] 2023-07-11 20:53:00 2023-07-11 23:38:00 Emergency Stephie Hewitt [facility] 1.840.114 350.1.13.10 4.2.7.2.[id number] [facility] 2023-07-10 08:45:00 2023-07-10 12:03:37 Outpatient R MERLYN HIDALGO [facility] [id number] [facility] 2023-07-10 08:45:00 2023-07-10 12:03:37 Office Visit Merlyn Hidalgo [facility] 1..840.114 350.1.13.10 4.2.7.2.[id number] [facility] 2023-07-10 00:00:00 2023-07-10 00:00:00 Orders Only Doctor Unassigned, [place] [facility] 1..840.114 350.1.13.10 4.2.7.2.[id number] [facility] 2023-07-08 09:15:00 2023-07-08 09:15:00 Outpatient KIARA RICHARDSON [id number] Luz Maria [facility] 2023-07-03 04:49:00 2023-07-03 09:47:00 Emergency X MIRIAM LUDWIG [facility] [id number] [facility] 2023-07-03 04:49:00 2023-07-03 09:47:00 Emergency Haresh Santamaria [place] 1..840.114 350.1.13.10 4.2.7.2.[id number] [facility] 2023-07-01 22:56:00 2023-07-02 01:00:00 Emergency Kristian Billingsley [facility] ER [id number] 61 [facility] 2023-05-20 15:50:00 2023-05-20 15:50:00 Outpatient LAB56 LUZ MARIA HOLLIDAY [id number] [facility] 15:15:00 2023-05-20 15:15:00 Outpatient KIARA RICHARDSON LUZ MARIA HOLLIDAY [id number] Luz Maria Ng 2023-05-07 17:37:00 2023-05-07 23:23:00 Emergency X MANFRED KAN [facility] [id number] [facility] 2023-05-07 17:37:00 2023-05-07 23:23:00 Emergency Kelsi sharma [facility] 1.840.114 350.1.13.10 4.2.7.2.[id number] [facility] 2023-05-01 21:39:00 2023-05-02 00:35:00 Emergency X AYDIN MATOS [facility] [id number] [facility] 2023-05-01 21:39:00 2023-05-02 00:35:00 Emergency Aydin Matos [facility] 1.840.114 350.1.13.10 4.2.7.2.[id number] [facility] 2023-04-22 03:51:00 2023-04-22 13:11:00 Emergency X NATALI ALEXANDER [facility] [id number] [facility] 2023-04-22 03:51:00 2023-04-22 13:11:00 Emergency Abraham Orantes [facility] 1..840.114 350.1.13.10 4.2.7.2.[id number] [facility] 2023-04-16 07:09:00 2023-04-16 09:00:00 Emergency X ADELAIDE GOODWIN [facility] E[facility] [id number] [facility] 2023-04-16 07:09:00 2023-04-16 09:00:00 Emergency Adelaide Goodwin [facility] 1.840.114 350.1.13.10 4.2.7.2.[id number] [facility] 2023-03-31 23:59:00 2023-04-01 03:24:00 Emergency X HEMAALTHA MORA [facility] [id number] [facility] 2023-03-31 23:59:00 2023-04-01 03:24:00 Emergency Hemalatha Mora [facility] 1.2.840.114 350.1.13.10 4.2.7.2.[id number] [facility] 2023-02-13 16:02:00 2023-02-13 17:25:00 Emergency X JESSICA GONZALES [facility] [id number] [facility] 2023-02-13 16:02:00 2023-02-13 17:25:00 Emergency Jessica Gonzales S [facility] 1.2840.114 350.1.13.10 4.2.7.2.[id number] [facility] 2023-01-05 00:00:00 2023-01-05 00:00:00 Orders Only Doctor Unassigned, [place] [facility] 1.2.840.114 350.1.13.10 4.2.7.2.[id number] [facility] 2022-12-29 17:25:40 2022-12-29 17:25:40 Outpatient BENJAMIN STICKNEY [facility] [id number] 0417 Dewey Ponce 2022-12-09 00:01:00 2022-12-09 01:39:00 Emergency X JOSE ANTONIORICARDOSOHAM [facility] ERT [id number] [facility] 2022-12-09 00:01:00 2022-12-09 01:39:00 Emergency Soham Clarke [facility] 1.2.840.114 350.1.13.10 4.2.7.2.[id number] [facility] 2022-11-24 23:44:00 2022-11-25 02:56:00 Emergency X MAHNAZ MATOSNELL [facility] [id number] [facility] 2022-11-24 23:44:00 2022-11-25 02:56:00 Emergency Lion Nascimento [facility] 1.2840.114 350.1.13.10 4.2.7.2.[id number] [facility] 2022-10-25 00:00:00 2022-10-25 00:00:00 Patient Secure Msg Doctor Unassigned, [place] [facility] 1.0.114 350.1.13.10 4.2.7.2.[id number] [facility] 2022-10-23 00:00:00 2022-10-23 00:00:00 Orders Only Doctor Unassigned, [place] [facility] 1.20.114 350.1.13.10 4.2.7.2.[id number] [facility] 2022-10-11 06:41:00 2022-10-12 17:56:00 Outpatient X MARK HERNANDEZ [facility] MARTI [id number] [facility] 2022-10-11 06:41:00 2022-10-12 17:56:00 Emergency [facility]..114 350.1.13.10 4.2.7.2.[id number] [facility] 2022-10-08 22:15:00 2022-10-09 01:39:00 Emergency X ABRAHAM ORANTES [facility] [id number] [facility] 2022-10-08 22:15:00 2022-10-09 01:39:00 Emergency Abraham Orantes [facility] 1.20.114 350.1.13.10 4.2.7.2.[id number] [facility] 2022-10-08 00:00:00 2022-10-08 00:00:00 Orders Only Doctor Unassigned, [place] [facility] 1.2.840.114 350.1.13.10 4.2.7.2.[id number] [facility] 2022-08-20 08:42:00 2022-08-20 12:19:00 Emergency X Trevor TAYLOR [facility] E[facility] [id number] [facility] 2022-08-20 08:42:00 2022-08-20 12:19:00 Emergency Trevor Taylor [facility] 1.2.840.114 350.1.13.10 4.2.7.2.[id number] [facility] 2022-07-11 00:00:00 2022-07-11 00:00:00 OFFICE VISIT NEW PT LEVEL 3 STLMLC STLMLC [id number] [facility] 2022-07-09 10:07:22 2022-07-09 10:07:22 Outpatient [facility] [id number] 1026 Dewey F Kris 2022-07-09 00:00:00 2022-07-09 00:00:00 Outpatient Visit [id number] 2022-06-09 06:57:00 2022-06-09 10:27:00 Emergency SOHAM BOLANOS [facility] [id number] [facility] 2022-06-09 06:57:00 2022-06-09 10:27:00 Emergency Soham Clarke [facility] 1.2.840.114 350.1.13.10 4.2.7.2.[id number] [facility] 2022-06-09 00:00:00 2022-06-09 00:00:00 Orders Only Doctor Unassigned, [place] [facility] 1.2.840.114 350.1.13.10 4.2.7.2.[id number] [facility] 2021-11-04 00:00:00 2021-11-04 00:00:00 Transition of Care Ellen Carroll Shonna REN 1.2.840.114 350.1.13.10 4.2.7.2.[id number] [facility] 2021-10-30 13:39:00 2021-11-01 13:45:00 Inpatient X EMELIA GALLEGO [facility] [id number] [facility] 2021-10-30 13:39:00 2021-11-01 13:45:00 Hospital Encounter Madison Sepulveda David [facility] 1.2.840.114 350.1.13.10 4.2.7.2.[id number] [facility] 2021-10-30 00:00:00 2021-10-30 00:00:00 Orders Only Doctor Unassigned, [place] [facility] 1.2.840.114 350.1.13.10 4.2.7.2.[id number] [facility] 2021-05-23 20:42:00 2021-05-24 01:42:00 Emergency Felipe Ortega B [facility] 1.2.840.114 350.1.13.10 4.2.7.2.[id number] [facility] 2021-05-23 20:42:00 2021-05-23 20:42:00 Emergency X FELIPE ORTEGA [facility] [id number] [facility] 2021-05-22 18:37:00 2021-05-22 21:40:00 Emergency Gabriella Zarate [facility] 1.2840.114 350.1.13.10 4.2.7.2.[id number] [facility] 2021-05-22 18:31:00 2021-05-22 18:31:00 Emergency X [facility] [id number] [facility] 2021-05-07 11:11:35 2021-05-07 11:11:42 Imm/Inj Visit Nurse, Adc Pob Immunizatio David Godinez [facility] 1.2840.114 350.1.13.10 4.2.7.2.[id number] [facility] 2021-05-01 19:09:00 2021-05-01 20:46:00 Emergency Nikhil Blanton [facility] 1.2840.114 350.1.13.10 4.2.7.2.[id number] [facility] 2021-05-01 18:53:00 2021-05-01 18:53:00 Emergency X [facility] [id number] [facility] 2021-04-01 20:06:00 2021-04-01 21:56:00 Emergency Nikhil Blanton [facility] 1.2840.114 350.1.13.10 4.2.7.2.686 [id number] 084 [id number] 2021-04-01 20:06:00 2021-04-01 21:56:00 Emergency Blanton, Nikhil [facility] 1.2840.114 350.1.13.10 4.2.7.2.[id number] [facility] 2021-04-01 20:06:00 2021-04-01 20:06:00 Emergency X NIKHIL BLANTON [facility] [id number] [facility] 2021-03-17 20:09:00 2021-03-17 22:19:00 Emergency [place], [facility] 1.2.840.114 350.1.13.10 4.2.7.2.686 [id number] 2021-03-17 20:09:00 2021-03-17 22:19:00 Emergency [place], [facility] 1.2.840.114 350.1.13.10 4.2.7.2.[id number] [facility] 2021-03-17 19:56:00 2021-03-17 19:56:00 Emergency X [facility] [id number] [facility] 2020-11-15 00:00:00 2020-11-15 00:00:00 Telephone Pcp, Patient Does Not Have A [facility] 1.2.840.114 350.1.13.10 4.2.7.2.686 [id number] [id number] 2020-11-15 00:00:00 2020-11-15 00:00:00 Letter (Out) [facility] 1.2.840.114 350.1.13.10 4.2.7.2.686 [id number] [id number] 2020-11-15 00:00:00 2020-11-15 00:00:00 Letter (Out) [facility] 1.2.840.114 350.1.13.10 4.2.7.2.[id number] [facility] 2020-11-15 00:00:00 2020-11-15 00:00:00 Telephone Pcp, Patient Does Not Have A [facility] 1.2.840.114 350.1.13.10 4.2.7.2.[id number] [facility] 2020-11-14 21:29:00 2020-11-14 22:55:00 Emergency Darnell Hsu [facility] 1.2.840.114 350.1.13.10 4.2.7.2.686 [id number] 084 [id number] 2020-11-14 21:29:00 2020-11-14 22:55:00 Emergency Darnell Hsu [facility] 1.2.840.114 350.1.13.10 4.2.7.2.[id number] [facility] 2020-11-14 21:29:00 2020-11-14 22:55:00 Emergency X DARNELL HSU [facility] [id number] [facility] 2020-09-30 08:03:00 2020-09-30 10:45:00 Emergency Jessica Siddiquira Pa [facility] 1.2.840.114 350.1.13.10 4.2.7.2.686 [id number] [id number] 2020-09-30 08:03:00 2020-09-30 10:45:00 Emergency Jessy Siddiqui [facility] 1.2.840.114 350.1.13.10 4.2.7.2.[id number] [facility] 2020-09-30 07:58:00 2020-09-30 07:58:00 Emergency X [facility] [id number] [facility] 2020-09-30 00:00:00 2020-09-30 00:00:00 Orders Only Doctor Unassigned, [place] [facility] 1.2.840.114 350.1.13.10 4.2.7.2.686 [id number] 2020-09-30 00:00:00 2020-09-30 00:00:00 Orders Only Doctor Unassigned, [place] [facility] 1.2.840.114 350.1.13.10 4.2.7.2.[id number] [facility] 2020-07-01 21:58:00 2020-07-01 23:54:00 Emergency [place] [facility] 1.2.840.114 350.1.13.10 4.2.7.2.686 [id number] 084 [id number] 2020-07-01 21:58:00 2020-07-01 23:54:00 Emergency [place] [facility] 1.2.840.114 350.1.13.10 4.2.7.2.[id number] [facility] 2020-07-01 21:58:00 2020-07-01 21:58:[address] [facility] ERT [id number] [facility] Results Test Description Test Time Test Comments Results Result Co mments Source [facility] [id number] 23:38:46* Test Item Value Reference Range Interpretation Comme nts TROPONIN I (test code = 5667160605) 0.004 ng/mL <=0.034 KRYSTLE (test code = [...] of biotin. Lab Interpretation (test code = 90910-2) Normal [facility] CHE[facility] 2 [id number] 23:34:49Exam: Chest (2 Views), 06/07/2024 5:00 PM. Ordering Physician: LUKE CLARKE. History: sob . Technique: Two views of the chest. Comparison: Chest radiograph 07/11/2023. Findings: No focal consolidation. No pneumothorax or effusion. Normal size of thecardiac silhouette. No acute osseous finding.[facility]-[id number] 23:30:44* Test Item Value Reference Range Interpretation Comments D-DIMER (test code = 9142207069) 0.22 See_Comment [Automated message] The system which [...] a diagnosis. Lab Interpretation (test code = 63069-5) Normal [facility]. METABOLIC PANEL (47067)2024-06-07 23:28:22* Test Item Value Reference Range Interpretation Comme nts NA (test code = 0519617649) 136 mmol/L 135-145 K (test code = 8131805984) 4.1 mmol/L 3.5-5.0 CL (test code = 6394752846) 103 mmol/L 98-108 CO2 TOTAL (test code = 1248562983) 25 mmol/L 23-31 AGAP (test code = 3416156553) 8 2-16 BUN (test code = 0321776084) 19 mg/dL 7-23 GLUCOSE (test code = 0057751767) 89 mg/dL 70-110 CREATININE (test code = 2160-0) 0.99 mg/dL 0.60-1.25 TOTAL BILI (test code = 9764344647) 1.1 mg/dL 0.1-1.1 CALCIUM (test code = 7082101456) 9.3 mg/dL 8.6-10.6 T PROTEIN (test code = 3278247534) 8.8 g/dL 6.3-8.2 H ALBUMIN (test code = 5796966749) 4.8 g/dL 3.5-5.0 ALK PHOS (test code = 3197227037) 51 U/L 34-122 ALTv (test code = 1742-6) 27 U/L 5-50 AST(SGOT) (test code = 8454937573) 35 U/L 13-40 eGFR (test code = 15648-2) 92.2 mL/min/1.73m2 CKD-EPI eGFR (2020). Assuming creatinine has been stable day-to-day for at least three months, the eGFR indicates Category G1 (>= 90 mL/min/1.73 m2) Lab Interpretation (test code = 35526-4) Abnormal [facility]esium2024-09-24 23:28:02* Test Item Value Reference Range Interpretation Comme nts MAGNESIUM (test code = 6982994108) 1.8 mg/dL 1.7-2.4 Lab Interpretation (test cod e = 11415-0) Normal [facility]LIPASE2024-09-24 23:28:02* Test Item Value Reference Range Interpretation Comme nts LIPASE (test code = 9074080285) 67 U/L 0-220 Lab Interpretation (test cod e = 96957-3) Normal [facility] SoutheastCreatine [id number] 23:27:41* Test Item Value Reference Range Interpretation Comme nts CK (test code = 1492452690) 475 U/L 33-194 H Lab Interpretation (test cod e = 19489-7) Abnormal [facility]CBC WITH [id number] 23:13:43* Test Item Value Reference Range Interpretation [...] 34.2 g/dL 31.2-35.0 RDW-SD (test code = 20863-2) 42.2 fL 38.5-51.6 RDW-CV (test code = 788-0) 13.0 % 12.1-15.4 PLT (test code = 777-3) 219 150-328 MPV (test code = 47365-5) 9.9 fL 9.8-13.0 NRBC/100 WBC (test code = 2942915522) 0.0 0.0-10.0 NRBC x10^3 (test code = 9005723250) See_Comment [Automated messa ge] The system which generated this result transmitted reference range: 10*3/?L. The reference range was not used to interpret this result as normal/abnormal. GRAN MAT (NEUT) % (test code = 770-8) 77.8 % IMM GRAN % (test code = 3622784886) 0.30 % LYMPH % (test code = 736-9) 15.6 % MONO % (test code = 5905-5) 5.7 % EOS % (test code = 713-8) 0.5 % BASO % (test code = 706-2) 0.1 % GRAN MAT x10^3(ANC) (test code = 5197612443) 5.87 10*3/uL 1.99-6.95 IMM GRAN x10^3 (test code = 9736506765) 0.00-0.06 LYMPH x10^3 (test code = 731-0) 1.18 10*3/uL 1.09-3.23 MONO x10^3 (test code = 742-7) 0.43 10*3/uL 0.36-1.02 EOS x10^3 (test code = 711-2) 0.04 10*3/uL 0.06-0.53 L BASO x10^3 (test code = 704-7) 0.01-0.09 Lab Interpretation (test code = 74323-6) [facility]normal [facility] [id number] 15:49:54* Test Item Value Reference Range Interpretation Comme nts TROPONIN I (test code = 1198467887) <=0.034 KRYSTLE (test code = KRYSTLE) Reference [...] of biotin. Lab Interpretation (test code = 87770-1) Normal [facility] [id number] 15:06:25CT ABDOMEN PELVIS W CONTRAST HISTORY: 53 [...] hernia is seen. Degenerative changes atL5-S1 level noted.[facility]. Metabolic Panel (58923)2024-04-02 14:58:53* Test Item Value Reference Range Interpretation Comme nts NA (test code = 3947060992) 138 mmol/L 135-145 K (test code = 3350574887) 4.6 mmol/L 3.5-5.0 CL (test code = 9285485213) 105 mmol/L 98-108 CO2 TOTAL (test code = 8529184453) 28 mmol/L 23-31 AGAP (test code = 2091719088) 5 2-16 BUN (test code = 7993614275) 19 mg/dL 7-23 GLUCOSE (test code = 3788677836) 117 mg/dL 70-110 H CREATININE (test code = 2160-0) 0.91 mg/dL 0.60-1.25 TOTAL BILI (test code = 3268412439) 0.8 mg/dL 0.1-1.1 CALCIUM (test code = 1270280978) 9.2 mg/dL 8.6-10.6 T PROTEIN (test code = 7912457173) 8.4 g/dL 6.3-8.2 H ALBUMIN (test code = 4390375274) 4.4 g/dL 3.5-5.0 ALK PHOS (test code = 2030087305) 58 U/L 34-122 ALTv (test code = 1742-6) 28 U/L 5-50 AST(SGOT) (test code = 4001970689) 33 U/L 13-40 eGFR (test code = 54356-4) 102.0 mL/min/1.73m2 CKD-EPI eGFR (2020). Assuming creatinine has been stable day-to-day for at least three months, the eGFR indicates Category G1 (>= 90 mL/min/1.73 m2) Lab Interpretation (test code = 31248-9) [facility] ([facility]Total Cholesterol, Triglycerides, HDL)2024-04-02 14:58:53* Test Item Value Reference Range Interpretation Comme nts CHOL (test code = 4714733268) 190 mg/dL 120-200 HDL (test code = 8081179877) 37 mg/dL >=40 L HDLC RATIO (test code = 6009083697) 5.1 <=5.0 H TRIG (test code = 5641052018) 107 mg/dL 30-170 LDL CHOL (test code = 95710-9) 132 mg/dL <=160 VLDL (test code = 9490266672) 21 mg/dL 5-60 Lab Interpretation (test cod e = 63135-0) Abnormal [facility] SoutheastMagnesium2024-07-20 14:58:32* Test Item Value Reference Range Interpretation Comme nts MAGNESIUM (test code = 9849035636) 1.9 mg/dL 1.7-2.4 Lab Interpretation (test cod e = 07917-3) Normal [facility] SoutheastLipase2024-07-20 14:58:12* Test Item Value Reference Range Interpretation Comme nts LIPASE (test code = 4098832740) 384 U/L 0-220 H Lab Interpretation (test cod e = 82780-8) Abnormal [facility] SoutheastCb with Ctfn3456-76-30 14:40:51* Test Item Value Reference Range Interpretation [...] 35.0 g/dL 31.2-35.0 RDW-SD (test code = 96080-5) 41.7 fL 38.5-51.6 RDW-CV (test code = 788-0) 13.3 % 12.1-15.4 PLT (test code = 777-3) 216 150-328 MPV (test code = 48353-5) 9.9 fL 9.8-13.0 NRBC/100 WBC (test code = 8707638330) 0.0 0.0-10.0 NRBC x10^3 (test code = 7306110622) See_Comment [Automated me ssage] The system which generated this result transmitted reference range: 10*3/?L. The reference range was not used to interpret this result as normal/abnormal. GRAN MAT (NEUT) % (test code = 770-8) 44.1 % IMM GRAN % (test code = 4190611005) 0.40 % LYMPH % (test code = 736-9) 45.4 % MONO % (test code = 5905-5) 8.4 % EOS % (test code = 713-8) 1.1 % BASO % (test code = 706-2) 0.6 % GRAN MAT x10^3(ANC) (test code = 6094540609) 2.31 10*3/uL 1.99-6.95 IMM GRAN x10^3 (test code = 2560920499) 0.00-0.06 LYMPH x10^3 (test code = 731-0) 2.38 10*3/uL 1.09-3.23 MONO x10^3 (test code = 742-7) 0.44 10*3/uL 0.36-1.02 EOS x10^3 (test code = 711-2) 0.06 10*3/uL 0.06-0.53 BASO x10^3 (test code = 704-7) 0.03 10*3/uL 0.01-0.09 [facility]COMP[facility] METABOLIC PANEL (39622)2024-02-21 03:54:20* Test Item Value Reference Range Interpretation Comme nts NA (test code = 5262723743) 137 mmol/L 135-145 K (test code = 9722295646) 3.9 mmol/L 3.5-5.0 CL (test code = 5894141012) 106 mmol/L 98-108 CO2 TOTAL (test code = 5993074978) 26 mmol/L 23-31 AGAP (test code = 2565810462) 5 2-16 BUN (test code = 5535593950) 14 mg/dL 7-23 GLUCOSE (test code = 5758390002) 128 mg/dL 70-110 H CREATININE (test code = 2160-0) 0.98 mg/dL 0.60-1.25 TOTAL BILI (test code = 7200164236) 0.5 mg/dL 0.1-1.1 CALCIUM (test code = 2947440567) 8.6 mg/dL 8.6-10.6 T PROTEIN (test code = 2301776979) 7.4 g/dL 6.3-8.2 ALBUMIN (test code = 8099311494) 4.1 g/dL 3.5-5.0 ALK PHOS (test code = 4806111489) 66 U/L 34-122 ALTv (test code = 1742-6) 25 U/L 5-50 AST(SGOT) (test code = 0122466327) 39 U/L 13-40 eGFR (test code = 50765-6) 93.4 mL/min/1.73m2 CKD-EPI eGFR (2020). Assuming creatinine has been stable day-to-day for at least three months, the eGFR indicates Category G1 (>= 90 mL/min/1.73 m2) Lab Interpretation (test code = 27752-1) Abnormal [facility]LIPASE2024-06-09 03:53:40* Test Item Value Reference Range Interpretation Comme nts LIPASE (test code = 0196116441) 117 U/L 0-220 Lab Interpretation (test cod e = 89263-3) Normal [facility]CBC WITH [id number] 03:39:58* Test Item Value Reference Range Interpretation [...] 34.8 g/dL 31.2-35.0 RDW-SD (test code = 83784-5) 40.3 fL 38.5-51.6 RDW-CV (test code = 788-0) 12.7 % 12.1-15.4 PLT (test code = 777-3) 216 150-328 MPV (test code = 00154-8) 9.6 fL 9.8-13.0 L NRBC/100 WBC (test code = 7520691710) 0.0 0.0-10.0 NRBC x10^3 (test code = 5112377056) See_Comment [Automated messa ge] The system which generated this result transmitted reference range: 10*3/?L. The reference range was not used to interpret this result as normal/abnormal. GRAN MAT (NEUT) % (test code = 770-8) 32.8 % IMM GRAN % (test code = 5976852838) 0.20 % LYMPH % (test code = 736-9) 58.5 % MONO % (test code = 5905-5) 6.6 % EOS % (test code = 713-8) 1.4 % BASO % (test code = 706-2) 0.5 % GRAN MAT x10^3(ANC) (test code = 1798022187) 1.94 10*3/uL 1.99-6.95 L IMM GRAN x10^3 (test code = 3118822387) 0.00-0.06 LYMPH x10^3 (test code = 731-0) 3.46 10*3/uL 1.09-3.23 H MONO x10^3 (test code = 742-7) 0.39 10*3/uL 0.36-1.02 EOS x10^3 (test code = 711-2) 0.08 10*3/uL 0.06-0.53 BASO x10^3 (test code = 704-7) 0.03 10*3/uL 0.01-0.09 Lab Interpretation (test code = 00607-0) Abnormal [facility] with Ylji5353-82-64 03:17:11* Test Item Value Reference Range Interpretation [...] 34.8 g/dL 31.2-35.0 RDW-SD (test code = 79078-0) 39.9 fL 38.5-51.6 RDW-CV (test code = 788-0) 12.7 % 12.1-15.4 PLT (test code = 777-3) 240 150-328 MPV (test code = 14070-3) 9.8 fL 9.8-13.0 NRBC/100 WBC (test code = 6018695019) 0.0 0.0-10.0 NRBC x10^3 (test code = 2745867173) See_Comment [Automated messa ge] The system which generated this result transmitted reference range: 10*3/?L. The reference range was not used to interpret this result as normal/abnormal. GRAN MAT (NEUT) % (test code = 770-8) 31.3 % IMM GRAN % (test code = 6673035861) 0.00 % LYMPH % (test code = 736-9) 57.3 % MONO % (test code = 5905-5) 9.3 % EOS % (test code = 713-8) 1.6 % BASO % (test code = 706-2) 0.5 % GRAN MAT x10^3(ANC) (test code = 6852971088) 1.94 10*3/uL 1.99-6.95 L IMM GRAN x10^3 (test code = 4450452899) 0.00-0.06 LYMPH x10^3 (test code = 731-0) 3.56 10*3/uL 1.09-3.23 H MONO x10^3 (test code = 742-7) 0.58 10*3/uL 0.36-1.02 EOS x10^3 (test code = 711-2) 0.10 10*3/uL 0.06-0.53 BASO x10^3 (test code = 704-7) 0.03 10*3/uL 0.01-0.09 Lab Interpretation (test code = 01375-0) Abnormal [facility] Metabolic Panel (92905)2023-12-10 03:13:49* Test Item Value Reference Range Interpretation Comme nts NA (test code = 1872333069) 141 mmol/L 135-145 K (test code = 7542503400) 4.3 mmol/L 3.5-5.0 CL (test code = 7862187613) 107 mmol/L 98-108 CO2 TOTAL (test code = 9750763093) 26 mmol/L 23-31 AGAP (test code = 7926844578) 8 2-16 BUN (test code = 2799402726) 20 mg/dL 7-23 GLUCOSE (test code = 2125810642) 123 mg/dL 70-110 H CREATININE (test code = 2160-0) 0.95 mg/dL 0.60-1.25 TOTAL BILI (test code = 1215272698) 0.8 mg/dL 0.1-1.1 CALCIUM (test code = 9149183164) 9.0 mg/dL 8.6-10.6 T PROTEIN (test code = 6273716783) 8.4 g/dL 6.3-8.2 H ALBUMIN (test code = 2442198097) 4.3 g/dL 3.5-5.0 ALK PHOS (test code = 8108718073) 58 U/L 34-122 ALTv (test code = 1742-6) 33 U/L 5-50 AST(SGOT) (test code = 0325054781) 52 U/L 13-40 H eGFR (test code = 06662-5) 96.9 mL/min/1.73m2 CKD-EPI eGFR (2020). Assuming creatinine has been stable day-to-day for at least three months, the eGFR indicates Category G1 (>= 90 mL/min/1.73 m2) Lab Interpretation (test code = 44429-5) Abnormal [facility] W NZGWRLWM6361-94-91 03:12:08CT ABDOMEN PELVIS W CONTRAST HISTORY: 53 [...] TISSUES: No suspicious lytic or sclerotic bony lesions.[facility] BASIC METABOLIC PANEL (NA, K, CL, CO2, GLUCOSE, BUN, CREATININE, CA)2023-08-04 03:27:21* Test Item Value Reference Range Interpretation Comme nts NA (test code = 7110175817) 140 mmol/L 135-145 K (test code = 2437457466) 3.9 mmol/L 3.5-5.0 CL (test code = 4245496711) 104 mmol/L 98-108 CO2 TOTAL (test code = 3084540416) 28 mmol/L 23-31 AGAP (test code = 3631886589) 8 2-16 BUN (test code = 6583680674) 15 mg/dL 7-23 GLUCOSE (test code = 3877209300) 155 mg/dL 70-110 H CREATININE (test code = 1367926428) 1.37 mg/dL 0.60-1.25 H CALCIUM (test code = 8835580064) 9.5 mg/dL 8.6-10.6 eGFR (test code = 78794-7) 62.8 mL/min/1.73m2 CKD-EPI eGFR (2020). Assuming creatinine has been stable day-to-day for at least three months, the eGFR indicates Category G2 (60 - 89 mL/min/1.73 m2) Lab Interpretation (test code = 54697-6) Abnormal [facility] WITH [id number] 03:12:39* Test Item Value Reference Range Interpretation [...] g/dL 31.2-35.0 H RDW-SD (test code = 56517-9) 38.1 fL 38.5-51.6 L RDW-CV (test code = 788-0) 12.3 % 12.1-15.4 PLT (test code = 777-3) 238 See_Comment [Automated messa ge] The system which generated this result transmitted reference range: 150 - 328 10*3/?L. The reference range was not used to interpret this result as normal/abnormal. MPV (test code = 73812-9) 9.8 fL 9.8-13.0 NRBC/100 WBC (test code = 2048038934) 0.0 See_Comment [Automated BRAINDIGIT ssage] The system which generated this result transmitted reference range: 0.0 - 10.0 /100 WBCs. The reference range was not used to interpret this result as normal/abnormal. NRBC x10^3 (test code = 6273658819) See_Comment [Automated messa ge] The system which generated this result transmitted reference range: 10*3/?L. The reference range was not used to interpret this result as normal/abnormal. GRAN MAT (NEUT) % (test code = 770-8) 37.8 % IMM GRAN % (test code = 6793796511) 0.30 % LYMPH % (test code = 736-9) 52.7 % MONO % (test code = 5905-5) 7.7 % EOS % (test code = 713-8) 1.1 % BASO % (test code = 706-2) 0.4 % GRAN MAT x10^3(ANC) (test code = 8353639373) 2.63 10*3/uL 1.99-6.95 IMM GRAN x10^3 (test code = 7305981023) 0.00-0.06 LYMPH x10^3 (test code = 731-0) 3.68 10*3/uL 1.09-3.23 H MONO x10^3 (test code = 742-7) 0.54 10*3/uL 0.36-1.02 EOS x10^3 (test code = 711-2) 0.08 10*3/uL 0.06-0.53 BASO x10^3 (test code = 704-7) 0.03 10*3/uL 0.01-0.09 Lab Interpretation (test code = 03103-3) Abnormal [facility] SoutheastTROPONIN [id number] 17:24:34* Test Item Value Reference Range Interpretation Comme nts TROPONIN I (test code = 5998059856) 0.018 ng/mL <=0.034 KRYSTLE (test code = [...] of biotin. Lab Interpretation (test code = 04788-4) Normal [facility] SoutheastMAGNESIUM2023-11-11 17:13:15* Test Item Value Reference Range Interpretation Comme nts MAGNESIUM (test code = 9346347592) 1.9 mg/dL 1.7-2.4 Lab Interpretation (test cod e = 57626-4) Normal [facility]COMP. METABOLIC PANEL (35786)2023-07-25 17:12:55* Test Item Value Reference Range Interpretation Comme nts NA (test code = 6030166778) 141 mmol/L 135-145 K (test code = 7663706810) 3.8 mmol/L 3.5-5.0 CL (test code = 7203369258) 106 mmol/L 98-108 CO2 TOTAL (test code = 7480551857) 27 mmol/L 23-31 AGAP (test code = 4073910189) 8 2-16 BUN (test code = 3661432214) 14 mg/dL 7-23 GLUCOSE (test code = 5526230432) 124 mg/dL 70-110 H CREATININE (test code = 9484021461) 0.93 mg/dL 0.60-1.25 TOTAL BILI (test code = 9599119542) 0.8 mg/dL 0.1-1.1 CALCIUM (test code = 2262691019) 9.3 mg/dL 8.6-10.6 T PROTEIN (test code = 5042184939) 8.2 g/dL 6.3-8.2 ALBUMIN (test code = 6327767403) 4.4 g/dL 3.5-5.0 ALK PHOS (test code = 1634327242) 49 U/L 34-122 ALTv (test code = 1742-6) 20 U/L 5-50 AST(SGOT) (test code = 1645200789) 28 U/L 13-40 eGFR (test code = 01201-9) 100.0 mL/min/1.73m2 CKD-EPI eGFR (2020). Assuming creatinine has been stable day-to-day for at least three months, the eGFR indicates Category G1 (>= 90 mL/min/1.73 m2) Lab Interpretation (test code = 13920-4) Abnormal [facility]LIPASE2023-11-11 17:12:35* Test Item Value Reference Range Interpretation Comme nts LIPASE (test code = 9908756316) 109 U/L 0-220 Lab Interpretation (test cod e = 48134-9) Normal [facility] WITH QAAP5813-10-06 16:59:59* Test Item Value Reference Range Interpretation [...] g/dL 31.2-35.0 H RDW-SD (test code = 82563-6) 39.2 fL 38.5-51.6 RDW-CV (test code = 788-0) 12.5 % 12.1-15.4 PLT (test code = 777-3) 207 See_Comment [Automated messa ge] The system which generated this result transmitted reference range: 150 - 328 10*3/?L. The reference range was not used to interpret this result as normal/abnormal. MPV (test code = 05803-9) 10.0 fL 9.8-13.0 NRBC/100 WBC (test code = 9350814512) 0.0 See_Comment [Automated BRAINDIGIT ssage] The system which generated this result transmitted reference range: 0.0 - 10.0 /100 WBCs. The reference range was not used to interpret this result as normal/abnormal. NRBC x10^3 (test code = 7376159022) See_Comment [Automated messa ge] The system which generated this result transmitted reference range: 10*3/?L. The reference range was not used to interpret this result as normal/abnormal. GRAN MAT (NEUT) % (test code = 770-8) 45.8 % IMM GRAN % (test code = 1066338338) 0.20 % LYMPH % (test code = 736-9) 42.9 % MONO % (test code = 5905-5) 9.9 % EOS % (test code = 713-8) 0.8 % BASO % (test code = 706-2) 0.4 % GRAN MAT x10^3(ANC) (test code = 8873396989) 2.37 10*3/uL 1.99-6.95 IMM GRAN x10^3 (test code = 0168329778) 0.00-0.06 LYMPH x10^3 (test code = 731-0) 2.22 10*3/uL 1.09-3.23 MONO x10^3 (test code = 742-7) 0.51 10*3/uL 0.36-1.02 EOS x10^3 (test code = 711-2) 0.04 10*3/uL 0.06-0.53 L BASO x10^3 (test code = 704-7) 0.01-0.09 Lab Interpretation (test code = 31057-1) Abnormal [facility] SoutheastLIPID PANEL (26829)(TOTAL CHOLESTEROL, TRIGLYCERIDES, HDL)2023-07-24 21:48:18* Test Item Value Reference Range Interpretation Comme nts CHOL (test code = 8498624783) 220 mg/dL 120-200 H HDL (test code = 2484661095) 31 mg/dL >=40 L HDLC RATIO (test code = 6929144131) 7.1 <=5.0 H TRIG (test code = 3178580913) 134 mg/dL 30-170 LDL CHOL (test code = 11442-4) 162 mg/dL <=160 H VLDL (test code = 8128288983) 27 mg/dL 5-60 Lab Interpretation (test cod e = 42529-1) Abnormal [facility] SoutheastComplete Metabolic Niveo5619-15-82 20:48:07* Test Item Value Reference Range Interpretation Comme nts NA (test code = 8188538717) 141 mmol/L 135-145 K (test code = 2380608940) 3.8 mmol/L 3.5-5.0 CL (test code = 2611162811) 103 mmol/L 98-108 CO2 TOTAL (test code = 1017105999) 29 mmol/L 23-31 AGAP (test code = 1095858807) 9 2-16 BUN (test code = 9642242665) 14 mg/dL 7-23 GLUCOSE (test code = 4162982310) 102 mg/dL 70-110 CREATININE (test code = 1591570661) 0.85 mg/dL 0.60-1.25 TOTAL BILI (test code = 0448302679) 1.2 mg/dL 0.1-1.1 H CALCIUM (test code = 0275369885) 10.0 mg/dL 8.6-10.6 T PROTEIN (test code = 3567059165) 8.9 g/dL 6.3-8.2 H ALBUMIN (test code = 6615094800) 5.0 g/dL 3.5-5.0 ALK PHOS (test code = 3228154166) 52 U/L 34-122 ALTv (test code = 1742-6) 22 U/L 5-50 AST(SGOT) (test code = 6788171979) 45 U/L 13-40 H eGFR (test code = 69213-5) 105.9 mL/min/1.73m2 CKD-EPI eGFR (2020). Assuming creatinine has been stable day-to-day for at least three months, the eGFR indicates Category G1 (>= 90 mL/min/1.73 m2) Lab Interpretation (test code = 17491-6) Abnormal [facility] SoutheastLipase, Qcgcc7966-03-80 20:48:07* Test Item Value Reference Range Interpretation Comme nts LIPASE (test code = 7254124793) 134 U/L 0-220 Lab Interpretation (test cod e = 01307-3) Normal [facility] with Likyvfpmzrgd4157-35-47 20:20:02* Test Item Value Reference Range Interpretation Comme nts WBC (test code = 6690-2) 6.91 See_Comment [Automated Yodioa ge] The system which generated this result transmitted reference range: 4.20 - 10.70 10*3/?L. The reference range was not used to interpret this result as normal/abnormal. RBC (test code = 789-8) 5.49 See_Comment [Automated Yodioa ge] The system which generated this result [...] 34.7 g/dL 31.2-35.0 RDW-SD (test code = 21244-0) 40.0 fL 38.5-51.6 RDW-CV (test code = 788-0) 12.7 % 12.1-15.4 PLT (test code = 777-3) 228 See_Comment [Automated Yodioa ge] The system which generated this result transmitted reference range: 150 - 328 10*3/?L. The reference range was not used to interpret this result as normal/abnormal. MPV (test code = 54210-5) 9.5 fL 9.8-13.0 L NRBC/100 WBC (test code = 7054281707) 0.0 See_Comment [Automated BRAINDIGIT ssage] The system which generated this result transmitted reference range: 0.0 - 10.0 /100 WBCs. The reference range was not used to interpret this result as normal/abnormal. NRBC x10^3 (test code = 0144861894) See_Comment [Automated Yodioa ge] The system which generated this result transmitted reference range: 10*3/?L. The reference range was not used to interpret this result as normal/abnormal. GRAN MAT (NEUT) % (test code = 770-8) 46.9 % IMM GRAN % (test code = 7840504890) 0.30 % LYMPH % (test code = 736-9) 42.3 % MONO % (test code = 5905-5) 9.8 % EOS % (test code = 713-8) 0.4 % BASO % (test code = 706-2) 0.3 % GRAN MAT x10^3(ANC) (test code = 9580987994) 3.24 10*3/uL 1.99-6.95 IMM GRAN x10^3 (test code = 3889377872) 0.00-0.06 LYMPH x10^3 (test code = 731-0) 2.92 10*3/uL 1.09-3.23 MONO x10^3 (test code = 742-7) 0.68 10*3/uL 0.36-1.02 EOS x10^3 (test code = 711-2) 0.03 10*3/uL 0.06-0.53 L BASO x10^3 (test code = 704-7) 0.01-0.09 Lab Interpretation (test code = 23164-7) Abnormal [facility] W/UEYS5241-36-56 08:28:00 [facility] 1970 Sex: M PatientName: NOAH PUTNAM Unit No: [id number] EXAMS: CPT CODE: [id number] CT ABD PELVIS W/CONT 83295 EXAM: - CT ABD PELVIS W/CONT INDICATION: [...] extraluminal fluid. IMPRESSION: 1. No acute abnormality. [facility] NAME: NOAH PUTNAM PHYS: [place] [address] : 1970 AGE: 52 SEX: M LOC: [employer] PHONE #: [phone] EXAM DATE: 07/23/2023 STATUS: REG ER FAX #: [phone] RAD #: D/C DT PAGE 1 Signed Report (CONTINUED) Patient Name: NOAH PUTNAM Unit No: [id number] EXAMS: CPT CODE: [id number] CT ABD PELVIS W/CONT 74460 (Continued) at 0828 Reported and signed by: Kiara Meza MD CC: Kristian Paul MD Technologist: Jovanni GREEN CTDI: DLP: Trnscrpt: 07/23/2023 (0828) Lindsey.CB5 [facility] NAME: NOAH PUTNAM PHYS: [place] [address] : 1970 AGE: 52 SEX: M LOC: [employer] PHONE #: [phone] EXAM DATE: 07/23/2023 STATUS: REG ER FAX #: [phone] RAD #: D/C DT PAGE 2 Signed Report Patient Name: NOAH PUTNAM Unit No: [id number] EXAMS: CPT CODE: [id number] CT ABD PELVIS W/CONT 05539 (Continued) Orig Print D/T: S: 07/23/2023 (0831) [facility] Ji NAME: NOAH PUTNAM [id number] PHYS: [place] [address] : 1970 AGE: 52 SEX: M LOC: [facility] PHONE #: [phone] EXAM DATE: 07/23/2023 STATUS: REG ER FAX #: [phone] RAD #: D/C DT PAGE 3 Signed ReportURINALYSIS QPPWDLEW1626-91-63 06:32:00* Test Item Value Reference Range Interpretation [...] /mm3 NEGATIVE SOURCE OF URINE: CLEAN CATCHUA MUKABALUXMQ3057-76-15 06:32:00* Test Item Value Reference Range Interpretation Comme nts UA RBC (test code = RBCU) 3-5 RBC/HPF 0-3 A UA WBC (test code = XWBCU) 0-3 WBC/HPF 0-5 UA EPITHELIAL CELLS (test co de = EPIU) RARE EPI/HPF FEW UA BACTERIA (test code = XBACU) FEW NONE UA MUCUS (test code = MUCU) MODERATE #/LPF NONE A SOURCE OF URINE: CLEAN CATCHBASIC METABOLIC [id number] 06:31:00* Test Item Value Reference Range Interpretation [...] CA) 9.5 MG/DL 8.4-10.2 N HEPATIC FUNCTION [id number] 06:31:00* Test Item Value Reference Range Interpretation Comme nts TOTAL PROTEIN (test code = PROT) 9.0 G/DL 6.2-7.6 H Ortho Clinical D iagnMINDBODY has made us aware of newinformation regarding [...] code = ALKP) 57 UNITS/L 38-126 N [id number] 06:31:00* Test Item Value Reference Range Interpretation Comme nts LIPASE (test code = LIP) 94 UNITS/L 23-300 N [id number] 06:31:00* Test Item Value Reference Range Interpretation Comme nts TROPONIN-I (test code = TROPI) 0.019 NG/ML 0.012-0.033 N PROTHROMBIN [id number] 06:07:00* Test Item Value Reference Range Interpretation [...] systemic embolism. 3.0 - 4.5 CBC W/O [id number] 06:00:00* Test Item Value Reference Range Interpretation [...] = NRBC#) 0.00 K/mm3 0.0-0.1 N Troponin [id number] 02:46:51* Test Item Value Reference Range Interpretation Comme nts TROPONIN I (test code = 7154823505) 0.017 ng/mL <=0.034 KRYSTLE (test code = [...] of biotin. Lab Interpretation (test code = 10174-8) [id number]35[facility]28* Test Item Value Reference Range Interpretation Comme nts NA (test code = 1316354114) 138 mmol/L 135-145 K (test code = 6989109385) 3.7 mmol/L 3.5-5.0 CL (test code = 7326365104) 106 mmol/L 98-108 CO2 TOTAL (test code = 2824910082) 24 mmol/L 23-31 AGAP (test code = 3553176528) 8 2-16 BUN (test code = 7466572645) 11 mg/dL 7-23 GLUCOSE (test code = 7215023180) 165 mg/dL 70-110 H CREATININE (test code = 6390201450) 0.89 mg/dL 0.60-1.25 TOTAL BILI (test code = 4697214914) 0.2 mg/dL 0.1-1.1 CALCIUM (test code = 7176663937) 9.3 mg/dL 8.6-10.6 T PROTEIN (test code = 4248267644) 7.0 g/dL 6.3-8.2 ALBUMIN (test code = 8429069921) 4.0 g/dL 3.5-5.0 ALK PHOS (test code = 7134506603) 59 U/L 34-122 ALTv (test code = 1742-6) 23 U/L 5-50 AST(SGOT) (test code = 3071231198) 27 U/L 13-40 eGFR (test code = 4201448564) 90.5 mL/min/1.73m2 KRYSTLE (test code = KRYSTLE) [...] imaging tests). Lab Interpretation (test code = 31181-0) Abnormal [facility] with [id number] 02:26:10* Test Item Value Reference Range Interpretation [...] g/dL 31.2-35.0 H RDW-SD (test code = 28827-2) 38.6 fL 38.5-51.6 RDW-CV (test code = 788-0) 12.6 % 12.1-15.4 PLT (test code = 777-3) 200 See_Comment [Automated messa ge] The system which generated this result transmitted reference range: 150 - 328 10*3/?L. The reference range was not used to interpret this result as normal/abnormal. MPV (test code = 20611-4) 9.6 fL 9.8-13.0 L NRBC/100 WBC (test code = 4387152122) 0.0 See_Comment [Automated BRAINDIGIT ssage] The system which generated this result transmitted reference range: 0.0 - 10.0 /100 WBCs. The reference range was not used to interpret this result as normal/abnormal. NRBC x10^3 (test code = 4161785259) See_Comment [Automated messa ge] The system which generated this result transmitted reference range: 10*3/?L. The reference range was not used to interpret this result as normal/abnormal. GRAN MAT (NEUT) % (test code = 770-8) 36.8 % IMM GRAN % (test code = 0704545428) 0.20 % LYMPH % (test code = 736-9) 54.7 % MONO % (test code = 5905-5) 7.1 % EOS % (test code = 713-8) 0.9 % BASO % (test code = 706-2) 0.3 % GRAN MAT x10^3(ANC) (test code = 9831064442) 2.13 10*3/uL 1.99-6.95 IMM GRAN x10^3 (test code = 5633266077) 0.00-0.06 LYMPH x10^3 (test code = 731-0) 3.16 10*3/uL 1.09-3.23 MONO x10^3 (test code = 742-7) 0.41 10*3/uL 0.36-1.02 EOS x10^3 (test code = 711-2) 0.05 10*3/uL 0.06-0.53 L BASO x10^3 (test code = 704-7) 0.01-0.09 Lab Interpretation (test code = 51651-6) [facility] (08490)2023-07-03 10:47:01* Test Item Value Reference Range Interpretation Comme nts NA (test code = 2388941120) 138 mmol/L 135-145 K (test code = 0339103631) 4.5 mmol/L 3.5-5.0 Slight hemolysis CL (test code = 5642825567) 103 mmol/L 98-108 CO2 TOTAL (test code = 0764727162) 23 mmol/L 23-31 AGAP (test code = 6972643151) 12 2-16 BUN (test code = 8899008249) 16 mg/dL 7-23 Slight hemolysis GLUCOSE (test code = 3851898584) 142 mg/dL 70-110 H CREATININE (test code = 5865390546) 0.99 mg/dL 0.60-1.25 TOTAL BILI (test code = 2365042178) 1.2 mg/dL 0.1-1.1 H CALCIUM (test code = 0437686810) 9.6 mg/dL 8.6-10.6 T PROTEIN (test code = 4634020604) 8.1 g/dL 6.3-8.2 ALBUMIN (test code = 2785031452) 4.6 g/dL 3.5-5.0 ALK PHOS (test code = 1820664225) 51 U/L 34-122 Slight hemolysis ALTv (test code = 1742-6) 26 U/L 5-50 AST(SGOT) (test code = 1883899615) 32 U/L 13-40 Slight hemolysis eGFR (test code = 3925812561) 80.0 mL/min/1.73m2 KRYSTLE (test code = KRYSTLE) [...] imaging tests). Lab Interpretation (test code = 44821-1) [facility] 10[facility]47:01* Test Item Value Reference Range Interpretation Comme nts LIPASE (test code = 6761870498) 955 U/L 0-220 H Lab Interpretation (test cod e = 48887-5) Abnormal [facility] WITH [id number] 10:27:34* Test Item Value Reference Range Interpretation [...] 34.5 g/dL 31.2-35.0 RDW-SD (test code = 19077-8) 39.4 fL 38.5-51.6 RDW-CV (test code = 788-0) 12.3 % 12.1-15.4 PLT (test code = 777-3) 226 See_Comment [Automated messa ge] The system which generated this result transmitted reference range: 150 - 328 10*3/?L. The reference range was not used to interpret this result as normal/abnormal. MPV (test code = 70726-3) 9.6 fL 9.8-13.0 L NRBC/100 WBC (test code = 9046266082) 0.0 See_Comment [Automated BRAIND[employer] ssage] The system which generated this result transmitted reference range: 0.0 - 10.0 /100 WBCs. The reference range was not used to interpret this result as normal/abnormal. NRBC x10^3 (test code = 0904096027) See_Comment [Automated messa ge] The system which generated this result transmitted reference range: 10*3/?L. The reference range was not used to interpret this result as normal/abnormal. GRAN MAT (NEUT) % (test code = 770-8) 54.9 % IMM GRAN % (test code = 8809860726) 0.20 % LYMPH % (test code = 736-9) 36.2 % MONO % (test code = 5905-5) 7.9 % EOS % (test code = 713-8) 0.5 % BASO % (test code = 706-2) 0.3 % GRAN MAT x10^3(ANC) (test code = 2088807557) 3.63 10*3/uL 1.99-6.95 IMM GRAN x10^3 (test code = 3232382642) 0.00-0.06 LYMPH x10^3 (test code = 731-0) 2.39 10*3/uL 1.09-3.23 MONO x10^3 (test code = 742-7) 0.52 10*3/uL 0.36-1.02 EOS x10^3 (test code = 711-2) 0.03 10*3/uL 0.06-0.53 L BASO x10^3 (test code = 704-7) 0.01-0.09 Lab Interpretation (test code = 10898-7) [facility]normal [facility] W/[id number] 00:06:00 [facility] 1970 Sex: M Patient Name: NOAH PUTNAM Unit No: [id number] EXAMS: CPT CODE: [id number] CT ABD PELVIS W/CONT 04578 Reason: diffuse abd pain CT Scan of [...] 1.7 cm protruding into the bladder base. MATEO ROINTESTINAL: No significant findings. The appendix is unremarkable. IMPRESSION: No acute findings in the abdomen or pelvis. Mildly enlarged prostate with a nodular component protruding into the bladder base. Correlation with PSA is recommended. at 0006 Reported and signed by: Jennifer Bass MD CC: Kristian Gleason DO;[facility] Technologist: Cory Romero CT Trscrpt Dt/ (000)t.RAOULR.MA50 Orig Print D/T: S: 07/02/2023 (0009) CTDI: [facility] [address] [place] [address] PHYS: Kristian Fay [address] : 1970 AGE: 52 SEX: M [place], [place] [address] LOC: D.PER PHONE #: [phone] EXAM DATE: 07/01/2023 STATUS: REG ER FAX #: RAD NO: DC Dt: PAGE 1 Signed ReportTROP-I [facility] [id number] 23:55:00* Test Item Value Reference Range Interpretation [...] troponin from other clinical conditions, the Fourth [employer] Definition of Myocardial Infarction stresses clinical assessment and demonstration of a rise and/or fall in serial troponin results above the upper reference limit.Results of this assay method may be falsely depressed orelevated if patient is taking high doses of Biotin. BASIC METABOLIC [id number] 23:55:00* Test Item Value Reference Range Interpretation [...] CA) 9.3 MG/DL 8.7-10.5 N HEPATIC FUNCTION [id number] 23:55:00* Test Item Value Reference Range Interpretation [...] code = ALKP) 60 Units/L 50-136 N [id number] 23:55:00* Test Item Value Reference Range Interpretation Comme nts LIPASE (test code = LIP) 259 U/L 16-77 H New Reference Ranges of 16-77 U/L please reviewrevised from 73-393 U/L on 06/30/2023 CBC W/AUTO [id number] 23:24:00* Test Item Value Reference Range Interpretation [...] = BA#) 0.02 x10 3/uL 0.0-0.2 N [id number] 12:29:00* Test Item Value Reference Range Interpretation Comme [facility] LIPASE (test code = LIP) 73 Units/L 73-393 N [id number] 17:24:56* Test Item Value Reference Range Interpretation Comme [facility] LIPASE (test code = 6119789725) 283 U/L 0-220 H Lab Interpretation (test cod e = 01382-4) Abnormal [facility] METABOLIC PANEL (NA, K, CL, CO2, GLUCOSE, BUN, CREATININE, CA)2023-04-22 17:24:35* Test Item Value Reference Range Interpretation Comme [facility] NA (test code = 7956645679) 139 mmol/L 135-145 K (test code = 0619201115) 4.0 mmol/L 3.5-5.0 CL (test code = 0598636991) 106 mmol/L 98-108 CO2 TOTAL (test code = 8169769568) 25 mmol/L 23-31 AGAP (test code = 4723226011) 8 2-16 BUN (test code = 6703589899) 21 mg/dL 7-23 GLUCOSE (test code = 4224914482) 110 mg/dL 70-110 CREATININE (test code = 3382893606) 1.06 mg/dL 0.60-1.25 CALCIUM (test code = 7670700117) 8.1 mg/dL 8.6-10.6 L eGFR (test code = 1797778100) 74.0 mL/min/1.73m2 KRYSTLE (test code = KRYSTLE) [...] imaging tests). Lab Interpretation (test code = 29167-6) [facility]normal [facility] [id number] 13:57:28* Test Item Value Reference Range Interpretation Comme nts CK (test code = 1092964974) 635 U/L 33-194 H Lab Interpretation (test cod e = 19516-5) Abnormal [facility] METABOLIC PANEL (NA, K, CL, CO2, GLUCOSE, BUN, CREATININE, CA)2023-04-22 13:23:02* Test Item Value Reference Range Interpretation Comme nts NA (test code = 5544607113) 141 mmol/L 135-145 K (test code = 4955344602) 4.0 mmol/L 3.5-5.0 CL (test code = 6593081483) 107 mmol/L 98-108 CO2 TOTAL (test code = 5814731082) 27 mmol/L 23-31 AGAP (test code = 2864807737) 7 2-16 BUN (test code = 1441349702) 22 mg/dL 7-23 GLUCOSE (test code = 6452456261) 94 mg/dL 70-110 CREATININE (test code = 4637326197) 1.26 mg/dL 0.60-1.25 H CALCIUM (test code = 3528892685) 8.3 mg/dL 8.6-10.6 L eGFR (test code = 8590007143) 60.6 mL/min/1.73m2 KRYSTLE (test code = KRYSTLE) [...] imaging tests). Lab Interpretation (test code = 29325-6) [facility] 13:22:41* Test Item Value Reference Range Interpretation Comme nts LIPASE (test code = 2079385675) 897 U/L 0-220 H Lab Interpretation (test cod e = 68235-0) [facility]normal [facility] (93788)2023-04-22 09:43:42* Test Item Value Reference Range Interpretation Comme nts NA (test code = 6923745561) 140 mmol/L 135-145 K (test code = 0166017337) 3.7 mmol/L 3.5-5.0 CL (test code = 0291032528) 103 mmol/L 98-108 CO2 TOTAL (test code = 2619410760) 24 mmol/L 23-31 AGAP (test code = 9649971036) 13 2-16 BUN (test code = 5906691326) 24 mg/dL 7-23 H GLUCOSE (test code = 3342153574) 114 mg/dL 70-110 H CREATININE (test code = 3291943427) 1.42 mg/dL 0.60-1.25 H TOTAL BILI (test code = 0172089317) 0.9 mg/dL 0.1-1.1 CALCIUM (test code = 8136022002) 9.5 mg/dL 8.6-10.6 T PROTEIN (test code = 7592304937) 9.2 g/dL 6.3-8.2 H ALBUMIN (test code = 6486965712) 4.9 g/dL 3.5-5.0 ALK PHOS (test code = 7583738421) 66 U/L 34-122 ALTv (test code = 1742-6) 25 U/L 5-50 AST(SGOT) (test code = 3388143832) 37 U/L 13-40 eGFR (test code = 4717637460) 52.8 mL/min/1.73m2 KRYSTLE (test code = KRYSTLE) [...] imaging tests). Lab Interpretation (test code = 61127-2) Abnormal [facility] WITH [id number] 09:33:37* Test Item Value Reference Range Interpretation Comme nts WBC (test code = 6690-2) 8.53 See_Comment [Automated [employer]] The system which generated this result transmitted reference range: 4.20 - 10.70 10*3/?L. The reference range was not used to interpret this result as normal/abnormal. RBC (test code = 789-8) 5.60 See_Comment H [Automated Yodioa Leetchi] The system which generated this result transmitted [...] g/dL 31.2-35.0 H RDW-SD (test code = 82641-7) 40.1 fL 38.5-51.6 RDW-CV (test code = 788-0) 13.0 % 12.1-15.4 PLT (test code = 777-3) 267 See_Comment [Automated messa ge] The system which generated this result transmitted reference range: 150 - 328 10*3/?L. The reference range was not used to interpret this result as normal/abnormal. MPV (test code = 05937-5) 9.6 fL 9.8-13.0 L NRBC/100 WBC (test code = 7621661469) 0.0 See_Comment [Automated me ssage] The system which generated this result transmitted reference range: 0.0 - 10.0 /100 WBCs. The reference range was not used to interpret this result as normal/abnormal. NRBC x10^3 (test code = 9964159792) See_Comment [Automated messa ge] The system which generated this result transmitted reference range: 10*3/?L. The reference range was not used to interpret this result as normal/abnormal. GRAN MAT (NEUT) % (test code = 770-8) 44.5 % IMM GRAN % (test code = 1671431071) 0.20 % LYMPH % (test code = 736-9) 43.4 % MONO % (test code = 5905-5) 10.7 % EOS % (test code = 713-8) 0.8 % BASO % (test code = 706-2) 0.4 % GRAN MAT x10^3(ANC) (test code = 0394716556) 3.80 10*3/uL 1.99-6.95 IMM GRAN x10^3 (test code = 8155232101) 0.00-0.06 LYMPH x10^3 (test code = 731-0) 3.70 10*3/uL 1.09-3.23 H MONO x10^3 (test code = 742-7) 0.91 10*3/uL 0.36-1.02 EOS x10^3 (test code = 711-2) 0.07 10*3/uL 0.06-0.53 BASO x10^3 (test code = 704-7) 0.03 10*3/uL 0.01-0.09 Lab Interpretation (test code = 00927-2) Abnormal [facility] [id number] 13:23:31* Test Item Value Reference Range Interpretation Comme nts TROPONIN I (test code = 5526327229) 0.020 ng/mL <=0.034 KRYSTLE (test code = [...] of biotin. Lab Interpretation (test code = 00004-5) Normal [facility] [id number] 13:23:31* Test Item Value Reference Range Interpretation Comme nts TROPONIN I (test code = 9156701960) 0.020 ng/mL <=0.034 KRYSTLE (test code = [...] of biotin. Lab Interpretation (test code = 68578-1) Normal [facility]. METABOLIC PANEL (96416)2023-04-16 12:58:04* Test Item Value Reference Range Interpretation Comme nts NA (test code = 6291290499) 142 mmol/L 135-145 K (test code = 1958269638) 4.0 mmol/L 3.5-5.0 CL (test code = 5852830848) 105 mmol/L 98-108 CO2 TOTAL (test code = 9159776324) 28 mmol/L 23-31 AGAP (test code = 6950429505) 9 2-16 BUN (test code = 5305353259) 11 mg/dL 7-23 GLUCOSE (test code = 5629497489) 115 mg/dL 70-110 H CREATININE (test code = 9990092784) 0.85 mg/dL 0.60-1.25 TOTAL BILI (test code = 5166097517) 0.4 mg/dL 0.1-1.1 CALCIUM (test code = 9720722684) 9.2 mg/dL 8.6-10.6 T PROTEIN (test code = 2606926958) 7.6 g/dL 6.3-8.2 ALBUMIN (test code = 8855034863) 4.4 g/dL 3.5-5.0 ALK PHOS (test code = 0821008230) 52 U/L 34-122 ALTv (test code = 1742-6) 23 U/L 5-50 AST(SGOT) (test code = 8948691535) 33 U/L 13-40 eGFR (test code = 8877031620) 95.4 mL/min/1.73m2 KRYSTLE (test code = KRYSTLE) [...] imaging tests). Lab Interpretation (test code = 20039-7) [facility] 12:58:04* Test Item Value Reference Range Interpretation Comme nts LIPASE (test code = 0055552697) 492 U/L 0-220 H Lab Interpretation (test cod e = 97130-1) [facility]normal [facility] (64969)2023-04-16 12:58:04* Test Item Value Reference Range Interpretation Comme nts NA (test code = 7447285956) 142 mmol/L 135-145 K (test code = 9122561014) 4.0 mmol/L 3.5-5.0 CL (test code = 0096742366) 105 mmol/L 98-108 CO2 TOTAL (test code = 1710589567) 28 mmol/L 23-31 AGAP (test code = 3914150332) 9 2-16 BUN (test code = 5074132401) 11 mg/dL 7-23 GLUCOSE (test code = 4661457344) 115 mg/dL 70-110 H CREATININE (test code = 2213665845) 0.85 mg/dL 0.60-1.25 TOTAL BILI (test code = 2615849931) 0.4 mg/dL 0.1-1.1 CALCIUM (test code = 1189749057) 9.2 mg/dL 8.6-10.6 T PROTEIN (test code = 7473320731) 7.6 g/dL 6.3-8.2 ALBUMIN (test code = 1716253138) 4.4 g/dL 3.5-5.0 ALK PHOS (test code = 0680332316) 52 U/L 34-122 ALTv (test code = 1742-6) 23 U/L 5-50 AST(SGOT) (test code = 7113991479) 33 U/L 13-40 eGFR (test code = 1146573882) 95.4 mL/min/1.73m2 KRYSTLE (test code = KRYSTLE) [...] imaging tests). Lab Interpretation (test code = 04120-9) [facility]normal [facility] 12:58:04* Test Item Value Reference Range Interpretation Comme nts LIPASE (test code = 0387530166) 492 U/L 0-220 H Lab Interpretation (test cod e = 14578-8) Abnormal [facility] WITH [id number] 12:50:01* Test Item Value Reference Range Interpretation [...] 34.9 g/dL 31.2-35.0 RDW-SD (test code = 77620-6) 41.4 fL 38.5-51.6 RDW-CV (test code = 788-0) 13.2 % 12.1-15.4 PLT (test code = 777-3) 219 See_Comment [Automated messa ge] The system which generated this result transmitted reference range: 150 - 328 10*3/?L. The reference range was not used to interpret this result as normal/abnormal. MPV (test code = 52073-6) 9.5 fL 9.8-13.0 L NRBC/100 WBC (test code = 8551092009) 0.0 See_Comment [Automated [employer] ssage] The system which generated this result transmitted reference range: 0.0 - 10.0 /100 WBCs. The reference range was not used to interpret this result as normal/abnormal. NRBC x10^3 (test code = 3586533084) See_Comment [Automated messa ge] The system which generated this result transmitted reference range: 10*3/?L. The reference range was not used to interpret this result as normal/abnormal. GRAN MAT (NEUT) % (test code = 770-8) 46.9 % IMM GRAN % (test code = 1302652341) 0.10 % LYMPH % (test code = 736-9) 43.4 % MONO % (test code = 5905-5) 8.4 % EOS % (test code = 713-8) 0.9 % BASO % (test code = 706-2) 0.3 % GRAN MAT x10^3(ANC) (test code = 2789525548) 3.16 10*3/uL 1.99-6.95 IMM GRAN x10^3 (test code = 7172504261) 0.00-0.06 LYMPH x10^3 (test code = 731-0) 2.93 10*3/uL 1.09-3.23 MONO x10^3 (test code = 742-7) 0.57 10*3/uL 0.36-1.02 EOS x10^3 (test code = 711-2) 0.06 10*3/uL 0.06-0.53 BASO x10^3 (test code = 704-7) 0.01-0.09 Lab Interpretation (test code = 39351-0) Abnormal [facility] WITH [id number] 12:50:01* Test Item Value Reference Range Interpretation Comme nts WBC (test code = 6690-2) 6.75 See_Comment [Automated Yodioa ge] The system which generated this result [...] 34.9 g/dL 31.2-35.0 RDW-SD (test code = 58500-3) 41.4 fL 38.5-51.6 RDW-CV (test code = 788-0) 13.2 % 12.1-15.4 PLT (test code = 777-3) 219 See_Comment [Automated messa ge] The system which generated this result transmitted reference range: 150 - 328 10*3/?L. The reference range was not used to interpret this result as normal/abnormal. MPV (test code = 52592-6) 9.5 fL 9.8-13.0 L NRBC/100 WBC (test code = 7615921889) 0.0 See_Comment [Automated [employer] ssage] The system which generated this result transmitted reference range: 0.0 - 10.0 /100 WBCs. The reference range was not used to interpret this result as normal/abnormal. NRBC x10^3 (test code = 2231669536) See_Comment [Automated messa ge] The system which generated this result transmitted reference range: 10*3/?L. The reference range was not used to interpret this result as normal/abnormal. GRAN MAT (NEUT) % (test code = 770-8) 46.9 % IMM GRAN % (test code = 8742565823) 0.10 % LYMPH % (test code = 736-9) 43.4 % MONO % (test code = 5905-5) 8.4 % EOS % (test code = 713-8) 0.9 % BASO % (test code = 706-2) 0.3 % GRAN MAT x10^3(ANC) (test code = 4993335625) 3.16 10*3/uL 1.99-6.95 IMM GRAN x10^3 (test code = 1391607355) 0.00-0.06 LYMPH x10^3 (test code = 731-0) 2.93 10*3/uL 1.09-3.23 MONO x10^3 (test code = 742-7) 0.57 10*3/uL 0.36-1.02 EOS x10^3 (test code = 711-2) 0.06 10*3/uL 0.06-0.53 BASO x10^3 (test code = 704-7) 0.01-0.09 Lab Interpretation (test code = 52460-8) [facility]23-[facility]-13 21:02:35* Test Item Value Reference Range Interpretation Comme [facility] POCT GLU (test code = 9330522630) 118 mg/dL 70-110 H Lab Interpretation (test cod e = 83587-3) Abnormal [facility] WITH [id number] 05:51:48* Test Item Value Reference Range Interpretation [...] 34.4 g/dL 31.2-35.0 RDW-SD (test code = 17270-0) 38.5 fL 38.5-51.6 RDW-CV (test code = 788-0) 12.5 % 12.1-15.4 PLT (test code = 777-3) 216 See_Comment [Automated messa ge] The system which generated this result transmitted reference range: 150 - 328 10*3/?L. The reference range was not used to interpret this result as normal/abnormal. MPV (test code = 38988-6) 10.0 fL 9.8-13.0 NRBC/100 WBC (test code = 4544011649) 0.0 See_Comment [Automated me ssage] The system which generated this result transmitted reference range: 0.0 - 10.0 /100 WBCs. The reference range was not used to interpret this result as normal/abnormal. NRBC x10^3 (test code = 6088070955) See_Comment [Automated messa ge] The system which generated this result transmitted reference range: 10*3/?L. The reference range was not used to interpret this result as normal/abnormal. SEG % (test code = 34468-4) 36 % 33-76 LYMPH % (test code = 22709-5) 48 % 14-54 MONO % (test code = 51202-7) 13 % 0-4 H EOS % (test code = 47701-4) 3 % 0-3 ANC (test code = 753-4) 2.75 10*3/uL 1.99-6.95 Lab Interpretation (test code = 74434-2) [facility] (85775)2022-12-09 05:24:19* Test Item Value Reference Range Interpretation Comme nts NA (test code = 5701863054) 139 mmol/L 135-145 K (test code = 7391428088) 3.8 mmol/L 3.5-5.0 CL (test code = 0287873868) 105 mmol/L 98-108 CO2 TOTAL (test code = 5446110564) 24 mmol/L 23-31 AGAP (test code = 0240293958) 10 2-16 BUN (test code = 5775117520) 11 mg/dL 7-23 GLUCOSE (test code = 4212154009) 115 mg/dL 70-110 H CREATININE (test code = 7148941614) 0.93 mg/dL 0.60-1.25 TOTAL BILI (test code = 3963130216) 0.8 mg/dL 0.1-1.1 CALCIUM (test code = 3106264019) 9.3 mg/dL 8.6-10.6 T PROTEIN (test code = 3638309817) 8.0 g/dL 6.3-8.2 ALBUMIN (test code = 0605343674) 4.5 g/dL 3.5-5.0 ALK PHOS (test code = 2763476155) 50 U/L 34-122 ALTv (test code = 1742-6) 22 U/L 5-50 AST(SGOT) (test code = 0247989353) 36 U/L 13-40 eGFR (test code = 1129427312) 86.0 mL/min/1.73m2 KRYSTLE (test code = KRYSTLE) [...] imaging tests). Lab Interpretation (test code = 51106-9) [facility] 05:24:18* Test Item Value Reference Range Interpretation Comme nts LIPASE (test code = 9297459276) 271 U/L 0-220 H Lab Interpretation (test cod e = 63320-3) Abnormal [facility] with Umjodmmemsov5490-72-25 22:09:52* Test Item Value Reference Range Interpretation [...] g/dL 31.2-35.0 H RDW-SD (test code = 39417-9) 39.2 fL 38.5-51.6 RDW-CV (test code = 788-0) 12.9 % 12.1-15.4 PLT (test code = 777-3) See_Comment [Automated Yodioa ge] The system which generated this result transmitted reference range: 150 - 328 10*3/?L. The reference range was not used to interpret this result as normal/abnormal. MPV (test code = 04028-3) 9.0 fL 9.8-13.0 L NRBC/100 WBC (test code = 9484280806) See_Comment [Automated [employer] ssage] The system which generated this result transmitted reference range: 0.0 - 10.0 /100 WBCs. The reference range was not used to interpret this result as normal/abnormal. NRBC x10^3 (test code = 8102049083) See_Comment [Automated Yodioa ge] The system which generated this result transmitted reference range: 10*3/?L. The reference range was not used to interpret this result as normal/abnormal. GRAN MAT (NEUT) % (test code = 770-8) 35.3 % IMM GRAN % (test code = 6140154943) 0.00 % LYMPH % (test code = 736-9) 56.0 % MONO % (test code = 5905-5) 7.9 % EOS % (test code = 713-8) 0.4 % BASO % (test code = 706-2) 0.4 % GRAN MAT x10^3(ANC) (test code = 6014683574) 1.87 10*3/uL 1.99-6.95 L IMM GRAN x10^3 (test code = 9504175412) 0.00-0.06 LYMPH x10^3 (test code = 731-0) 2.97 10*3/uL 1.09-3.23 MONO x10^3 (test code = 742-7) 0.42 10*3/uL 0.36-1.02 EOS x10^3 (test code = 711-2) 0.06-0.53 L BASO x10^3 (test code = 704-7) 0.01-0.09 Lab Interpretation (test code = 38566-7) Abnormal [facility] METABOLIC PANEL (NA, K, CL, CO2, GLUCOSE, BUN, CREATININE, CA)2022-10-12 00:25:13* Test Item Value Reference Range Interpretation Comme nts NA (test code = 6726601760) 136 mmol/L 135-145 K (test code = 3311002294) 3.5 mmol/L 3.5-5.0 CL (test code = 9552755357) 103 mmol/L 98-108 CO2 TOTAL (test code = 4449820434) 26 mmol/L 23-31 AGAP (test code = 9857600957) 2-16 BUN (test code = 3034162404) 14 mg/dL 7-23 GLUCOSE (test code = 8852002473) 157 mg/dL 70-110 H CREATININE (test code = 9500727744) 0.80 mg/dL 0.60-1.25 CALCIUM (test code = 7726655710) 8.4 mg/dL 8.6-10.6 L eGFR (test code = 2726254951) mL/min/1.73m2 KRYSTLE (test code = KRYSTLE) Association [...] imaging tests). Lab Interpretation (test code = 61981-4) [facility] (ALB,T.PRO,BILI T,BU/BC,ALT,AST,ALK PHOS)2022-10-12 00:25:13* Test Item Value Reference Range Interpretation Comme nts TOTAL BILI (test code = 1718039700) 1.2 mg/dL 0.1-1.1 H BILI UNCON (test code = 1301953506) 1.0 mg/dL 0.1-1.1 BILI CONJ (test code = 4803655055) 0.0 mg/dL 0.0-0.3 T PROTEIN (test code = 4999377466) 7.1 g/dL 6.3-8.2 ALBUMIN (test code = 3769856051) 4.0 g/dL 3.5-5.0 ALK PHOS (test code = 5129566590) 59 U/L 34-122 ALTv (test code = 1742-6) 38 U/L 5-50 AST(SGOT) (test code = 7100586482) 61 U/L 13-40 H Lab Interpretation (test cod e = 31357-3) [facility]normal [facility] ([facility] Only)2022-10-11 21:35:47* Test Item Value Reference Range Interpretation Comme nts ABO & RH (test code = 20) O Positive Performed at [facility] Laboratory Services - HEALTH SYSTEM Blood [address] Free: [phone] No. [id number] [facility] and Screen - ONCE [id number] 21:25:51* Test Item Value Reference Range Interpretation Comme nts ABO & RH (test code = 20) O POSITIVE Performed at [facility] Laboratory Services - [address] Free: [phone] No. [id number] IAT (test code = 1185) Negative Performed at [facility] Laboratory Services - HEALTH SYSTEM Blood [place] [address]Toll Free: [phone] No. [id number] [facility] WITH [id number] 20:47:43* Test Item Value Reference Range Interpretation [...] g/dL 31.2-35.0 H RDW-SD (test code = 83485-6) 41.1 fL 38.5-51.6 RDW-CV (test code = 788-0) 13.2 % 12.1-15.4 PLT (test code = 777-3) See_Comment [Automated Yodioa ge] The system which generated this result transmitted reference range: 150 - 328 10*3/?L. The reference range was not used to interpret this result as normal/abnormal. MPV (test code = 78387-1) 9.5 fL 9.8-13.0 L NRBC/100 WBC (test code = 7314831887) See_Comment [Automated BRAINDIGIT ssage] The system which generated this result transmitted reference range: 0.0 - 10.0 /100 WBCs. The reference range was not used to interpret this result as normal/abnormal. NRBC x10^3 (test code = 2086236864) See_Comment [Automated Yodioa ge] The system which generated this result transmitted reference range: 10*3/?L. The reference range was not used to interpret this result as normal/abnormal. GRAN MAT (NEUT) % (test code = 770-8) 38.2 % IMM GRAN % (test code = 9629870863) 0.00 % LYMPH % (test code = 736-9) 53.7 % MONO % (test code = 5905-5) 7.5 % EOS % (test code = 713-8) 0.3 % BASO % (test code = 706-2) 0.3 % GRAN MAT x10^3(ANC) (test code = 6046991435) 2.46 10*3/uL 1.99-6.95 IMM GRAN x10^3 (test code = 5843425121) 0.00-0.06 LYMPH x10^3 (test code = 731-0) 3.46 10*3/uL 1.09-3.23 H MONO x10^3 (test code = 742-7) 0.48 10*3/uL 0.36-1.02 EOS x10^3 (test code = 711-2) 0.06-0.53 L BASO x10^3 (test code = 704-7) 0.01-0.09 Lab Interpretation (test code = 68440-7) [facility]TOTAL CHOLESTEROL, TRIGLYCERIDES, HDL)2022-10-11 20:32:44* Test Item Value Reference Range Interpretation Comme nts CHOL (test code = 9564467455) 195 mg/dL 120-200 HDL (test code = 5804156284) 36 mg/dL See_Comment L [Automated Yodioa ge] The system which generated this result transmitted reference range: >=40. The reference range was not used to interpret this result as normal/abnormal. HDLC RATIO (test code = 7814768398) See_Comment H [Automated Yodioa ge] The system which generated this result transmitted reference range: <=5.0. The reference range was not used to interpret this result as normal/abnormal. TRIG (test code = 4434513149) 84 mg/dL 30-170 LDL CHOL (test code = 88596-1) 142 mg/dL See_Comment [Automated Yodioa ge] The system which generated this result transmitted reference range: <=160. The reference range was not used to interpret this result as normal/abnormal. VLDL (test code = 5286640709) 17 mg/dL 5-60 Lab Interpretation (test code = 66811-4) [facility]normal [facility] [id number] 14:23:55* Test Item Value Reference Range Interpretation Comme nts NT-proBNP (test code = 6445268636) See_Comment [Automated message] The system which generated this result transmitted reference range: <=125. The reference range was not used to interpret this result as normal/abnormal. KRYSTLE (test code = KRYSTLE) Biotin has been reported to cause a negative bias, interpret results relative to patient's use of biotin. Lab Interpretation (test code = 83033-7) Normal [facility]ACTIV[facility] THRMPLAS [id number] 14:23:25* Test Item Value Reference Range Interpretation Comme nts APTT Patient (test code = 3173-2) See_Comment [Automated message] The system which generated this result transmitted reference range: 23 - 38 Seconds. The reference range was not used to interpret this result as normal/abnormal. KRYSTLE (test code = KRYSTLE) The [facility] patient population mean normal value for aPTT is 30 seconds. Lab Interpretation (test code = 36870-2) Normal [facility]2023[facility] 14:23:05* Test Item Value Reference Range Interpretation Comme nts LIPASE (test code = 2222335069) 502 U/L 0-220 H Lab Interpretation (test cod e = 24516-4) [facility]normal [facility] MET[facility]OLIC PANEL (96270)2022-10-11 14:23:05* Test Item Value Reference Range Interpretation Comme nts NA (test code = 6020696142) 139 mmol/L 135-145 K (test code = 8360743727) 5.0 mmol/L 3.5-5.0 Slight hemolysis CL (test code = 1721147791) 103 mmol/L 98-108 CO2 TOTAL (test code = 5878592950) 28 mmol/L 23-31 AGAP (test code = 3920539895) 2-16 BUN (test code = 9993765808) 17 mg/dL 7-23 Slight hemolysis GLUCOSE (test code = 8936128516) 103 mg/dL 70-110 CREATININE (test code = 4454778075) 0.80 mg/dL 0.60-1.25 TOTAL BILI (test code = 8132371936) 1.6 mg/dL 0.1-1.1 H CALCIUM (test code = 7236658291) 9.0 mg/dL 8.6-10.6 T PROTEIN (test code = 7518542921) 8.4 g/dL 6.3-8.2 H ALBUMIN (test code = 4529545007) 4.8 g/dL 3.5-5.0 ALK PHOS (test code = 1490245382) 57 U/L 34-122 Slight hemolysis ALTv (test code = 1742-6) 49 U/L 5-50 AST(SGOT) (test code = 2925189565) 77 U/L 13-40 H Slight hemolysis eGFR (test code = 5948401998) mL/min/1.73m2 KRYSTLE (test code = KRYSTLE) Association [...] imaging tests). Lab Interpretation (test code = 88258-9) [facility]normal [facility] [id number] 14:23:05* Test Item Value Reference Range Interpretation Comments TROPONIN I (test code = 5700241331) 0.018 ng/mL See_Comment [Automated message] The system [...] of biotin. Lab Interpretation (test code = 53969-7) Normal [facility]PROTHROMBIN TIME / [id number] 14:20:24* Test Item Value Reference Range Interpretation [...] the indications. Lab Interpretation (test code = 38531-5) Normal [facility]CBC WITH [id number] 13:55:05* Test Item Value Reference Range Interpretation [...] 34.9 g/dL 31.2-35.0 RDW-SD (test code = 44014-4) 40.4 fL 38.5-51.6 RDW-CV (test code = 788-0) 13.0 % 12.1-15.4 PLT (test code = 777-3) See_Comment [Automated messa ge] The system which generated this result transmitted reference range: 150 - 328 10*3/?L. The reference range was not used to interpret this result as normal/abnormal. MPV (test code = 44400-1) 9.1 fL 9.8-13.0 L NRBC/100 WBC (test code = 6619658972) See_Comment [Automated me ssage] The system which generated this result transmitted reference range: 0.0 - 10.0 /100 WBCs. The reference range was not used to interpret this result as normal/abnormal. NRBC x10^3 (test code = 5013979348) See_Comment [Automated messa ge] The system which generated this result transmitted reference range: 10*3/?L. The reference range was not used to interpret this result as normal/abnormal. GRAN MAT (NEUT) % (test code = 770-8) 53.2 % IMM GRAN % (test code = 7851448254) 0.10 % LYMPH % (test code = 736-9) 36.6 % MONO % (test code = 5905-5) 9.3 % EOS % (test code = 713-8) 0.5 % BASO % (test code = 706-2) 0.3 % GRAN MAT x10^3(ANC) (test code = 3991647498) 4.25 10*3/uL 1.99-6.95 IMM GRAN x10^3 (test code = 8450558617) 0.00-0.06 LYMPH x10^3 (test code = 731-0) 2.92 10*3/uL 1.09-3.23 MONO x10^3 (test code = 742-7) 0.74 10*3/uL 0.36-1.02 EOS x10^3 (test code = 711-2) 0.04 10*3/uL 0.06-0.53 L BASO x10^3 (test code = 704-7) 0.01-0.09 Lab Interpretation (test code = 39636-9) Abnormal [facility]. METABOLIC PANEL (60859)2022-06-09 13:23:22* Test Item Value Reference Range Interpretation Comme nts NA (test code = 6483778417) 138 mmol/L 135-145 K (test code = 7320442894) 4.5 mmol/L 3.5-5 CL (test code = 7391633513) 106 mmol/L 98-108 CO2 TOTAL (test code = 9531289499) 24 mmol/L 23-31 AGAP (test code = 0183571167) 2-16 BUN (test code = 0776127786) 18 mg/dL 7-23 GLUCOSE (test code = 5188893999) 97 mg/dL 70-110 CREATININE (test code = 8294508102) 0.98 mg/dL 0.6-1.25 TOTAL BILI (test code = 4370849558) 0.5 mg/dL 0.1-1.1 CALCIUM (test code = 1834646705) 9.3 mg/dL 8.6-10.6 T PROTEIN (test code = 8556764753) 7.3 g/dL 6.3-8.2 ALBUMIN (test code = 9617749964) 4.5 g/dL 3.5-5 ALK PHOS (test code = 8078418657) 65 U/L 34-122 ALTv (test code = 1742-6) 27 U/L 5-50 AST(SGOT) (test code = 7652694249) 33 U/L 13-40 eGFR (test code = 1598258360) mL/min/1.73m2 KRYSTLE (test code = KRYSTLE) Association [...] or urine or abnormalities in imaging tests). [facility] 13:23:01* Test Item Value Reference Range Interpretation Comme nts LIPASE (test code = 5506722714) 596 U/L 0-220 H Lab Interpretation (test cod e = 79998-4) Abnormal [facility] WITH [id number] 13:09:00* Test Item Value Reference Range Interpretation Comme nts WBC (test code = 6690-2) See_Comment [Automated Yodioa Leetchi] The system which generated this result transmitted reference range: 4.20 - 10.70 10*3/?L. The reference range was not used to interpret this result as normal/abnormal. RBC (test code = 789-8) See_Comment [Automated Yodioa Leetchi] The system which generated this result transmitted [...] g/dL 31.2-35 H RDW-SD (test code = 37540-0) 38.3 fL 38.5-51.6 L RDW-CV (test code = 788-0) 12.3 % 12.1-15.4 PLT (test code = 777-3) See_Comment [Automated Yodioa Leetchi] The system which generated this result transmitted reference range: 150 - 328 10*3/?L. The reference range was not used to interpret this result as normal/abnormal. MPV (test code = 92368-3) 9.2 fL 9.8-13 L NRBC/100 WBC (test code = 7594336723) See_Comment [Automated me ssage] The system which generated this result transmitted reference range: 0.0 - 10.0 /100 WBCs. The reference range was not used to interpret this result as normal/abnormal. NRBC x10^3 (test code = 0263424013) See_Comment [Automated messa ge] The system which generated this result transmitted reference range: 10*3/?L. The reference range was not used to interpret this result as normal/abnormal. GRAN MAT (NEUT) % (test code = 770-8) 47.3 % IMM GRAN % (test code = 4369075123) 0.30 % LYMPH % (test code = 736-9) 43.8 % MONO % (test code = 5905-5) 7.8 % EOS % (test code = 713-8) 0.5 % BASO % (test code = 706-2) 0.3 % GRAN MAT x10^3(ANC) (test code = 0486662477) 3.04 10*3/uL 1.99-6.95 IMM GRAN x10^3 (test code = 2325607632) 0-0.06 LYMPH x10^3 (test code = 731-0) 2.81 10*3/uL 1.09-3.23 MONO x10^3 (test code = 742-7) 0.50 10*3/uL 0.36-1.02 EOS x10^3 (test code = 711-2) 0.03 10*3/uL 0.06-0.53 L BASO x10^3 (test code = 704-7) 0.01-0.09 Lab Interpretation (test code = 28345-0) Abnormal [facility] METABOLIC PANEL (NA, K, CL, CO2, GLUCOSE, BUN, CREATININE, CA)2021-11-01 10:40:12* Test Item Value Reference Range Interpretation Comme nts NA (test code = 1600293205) 136 mmol/L 135-145 K (test code = 1867933551) 4.2 mmol/L 3.5-5.0 CL (test code = 4039051325) 104 mmol/L 98-108 CO2 TOTAL (test code = 3717611673) 31 mmol/L 23-31 AGAP (test code = 5330688319) 2-16 L BUN (test code = 4573819641) 15 mg/dL 7-23 GLUCOSE (test code = 9239874133) 91 mg/dL 70-110 CREATININE (test code = 5999880298) 0.96 mg/dL 0.60-1.25 CALCIUM (test code = 9374287493) 8.5 mg/dL 8.6-10.6 L eGFR (test code = 9422313768) mL/min/1.73m2 KRYSTLE (test code = KRYSTLE) Association [...] imaging tests). Lab Interpretation (test code = 69164-9) [facility]normal [facility]20[facility] 10:40:12* Test Item Value Reference Range Interpretation Comme nts MAGNESIUM (test code = 9266881197) 1.7 mg/dL 1.7-2.4 Lab Interpretation (test cod e = 52327-2) Normal [facility]2022-02-18 10:39:52* Test Item Value Reference Range Interpretation Comme nts PHOSPHORUS (test code = 8587664079) 4.4 mg/dL 2.5-5.0 Lab Interpretation (test cod e = 88930-0) Normal [facility]CBC WITH [id number] 10:25:11* Test Item Value Reference Range Interpretation [...] 34.3 g/dL 31.2-35.0 RDW-SD (test code = 92470-5) 38.5 fL 38.5-51.6 RDW-CV (test code = 788-0) 12.3 % 12.1-15.4 PLT (test code = 777-3) See_Comment [Automated messa ge] The system which generated this result transmitted reference range: 150 - 328 10*3/?L. The reference range was not used to interpret this result as normal/abnormal. MPV (test code = 43341-8) 9.6 fL 9.8-13.0 L NRBC/100 WBC (test code = 0376425130) See_Comment [Automated me ssage] The system which generated this result transmitted reference range: 0.0 - 10.0 /100 WBCs. The reference range was not used to interpret this result as normal/abnormal. NRBC x10^3 (test code = 8893075739) <0.01 See_Comment [Automated messa ge] The system which generated this result transmitted reference range: 10*3/?L. The reference range was not used to interpret this result as normal/abnormal. GRAN MAT (NEUT) % (test code = 770-8) 49.5 % IMM GRAN % (test code = 9516822832) 0.30 % LYMPH % (test code = 736-9) 39.4 % MONO % (test code = 5905-5) 9.7 % EOS % (test code = 713-8) 0.8 % BASO % (test code = 706-2) 0.3 % GRAN MAT x10^3(ANC) (test code = 1807479344) 3.13 10*3/uL 1.99-6.95 IMM GRAN x10^3 (test code = 5244230824) <0.03 0.00-0.06 LYMPH x10^3 (test code = 731-0) 2.49 10*3/uL 1.09-3.23 MONO x10^3 (test code = 742-7) 0.61 10*3/uL 0.36-1.02 EOS x10^3 (test code = 711-2) 0.05 10*3/uL 0.06-0.53 L BASO x10^3 (test code = 704-7) <0.03 0.01-0.09 Lab Interpretation (test code = 81726-3) Abnormal [facility] [id number] 17:32:56* Test Item Value Reference Range Interpretation Comme nts NT-proBNP (test code = 1071048342) 13 pg/mL See_Comment [Automated message] The system which generated this result transmitted reference range: <=125. The reference range was not used to interpret this result as normal/abnormal. KRYSTLE (test code = KRYSTLE) Biotin has been reported to cause a negative bias, interpret results relative to patient's use of biotin. Lab Interpretation (test code = 73627-4) Normal [facility]MINAL [id number] 10:50:49* Test Item Value Reference Range Interpretation Comme nts NT-proBNP (test code = 3032722358) <11 See_Comment [Automated message] The system which generated this result transmitted reference range: <=125 pg/mL. The reference range was not used to interpret this result as normal/abnormal. KRYSTLE (test code = KRYSTLE) Biotin has been reported to cause a negative bias, interpret results relative to patient's use of biotin. Lab Interpretation (test code = 45077-2) Normal [facility]TROPONIN [id number] 10:36:56* Test Item Value Reference Range Interpretation Comments TROPONIN I (test code = 8863892916) 0.004 ng/mL See_Comment [Automated message] The system [...] of biotin. Lab Interpretation (test code = 40759-1) Normal [facility]. METABOLIC PANEL (87935)2021-10-31 10:33:50* Test Item Value Reference Range Interpretation Comme nts NA (test code = 8401572061) 139 mmol/L 135-145 K (test code = 5637407244) 4.0 mmol/L 3.5-5.0 CL (test code = 6256477024) 109 mmol/L 98-108 H CO2 TOTAL (test code = 2447447720) 27 mmol/L 23-31 AGAP (test code = 1798650328) 2-16 BUN (test code = 6352870264) 16 mg/dL 7-23 GLUCOSE (test code = 7962018342) 97 mg/dL 70-110 CREATININE (test code = 2304828590) 1.00 mg/dL 0.60-1.25 TOTAL BILI (test code = 8360952016) 1.0 mg/dL 0.1-1.1 CALCIUM (test code = 4850756231) 8.7 mg/dL 8.6-10.6 T PROTEIN (test code = 7235447199) 7.9 g/dL 6.3-8.2 ALBUMIN (test code = 2868570217) 4.4 g/dL 3.5-5.0 ALK PHOS (test code = 7174339142) 60 U/L 34-122 ALTv (test code = 1742-6) 56 U/L 5-50 H AST(SGOT) (test code = 6644454999) 49 U/L 13-40 H eGFR (test code = 9597911631) mL/min/1.73m2 KRYSTLE (test code = KRYSTLE) Association [...] imaging tests). Lab Interpretation (test code = 35257-6) Abnormal [facility] SoutheastMagnesium [id number] 10:25:32* Test Item Value Reference Range Interpretation Comme nts MAGNESIUM (test code = 8515518531) 1.8 mg/dL 1.7-2.4 Lab Interpretation (test cod e = 51411-5) Normal [facility]PH[facility]2022-02-17 10:25:12* Test Item Value Reference Range Interpretation Comme nts PHOSPHORUS (test code = 7957939810) 3.9 mg/dL 2.5-5.0 Lab Interpretation (test cod e = 18938-0) Normal [facility] SoutheastCREATINE [id number] 10:24:52* Test Item Value Reference Range Interpretation Comme nts CK (test code = 6671780110) 215 U/L 33-194 H Lab Interpretation (test cod e = 09435-7) Abnormal [facility] with [id number] 10:18:09* Test Item Value Reference Range Interpretation Comme nts WBC (test code = 6690-2) See_Comment [Automated Yodioa ge] The system which generated this result transmitted reference range: 4.20 - 10.70 10*3/?L. The reference range was not used to interpret this result as normal/abnormal. RBC (test code = 789-8) See_Comment [Automated Yodioa Leetchi] The system which generated this result transmitted [...] 33.9 g/dL 31.2-35.0 RDW-SD (test code = 48985-9) 41.3 fL 38.5-51.6 RDW-CV (test code = 788-0) 13.0 % 12.1-15.4 PLT (test code = 777-3) See_Comment [Automated Yodioa ge] The system which generated this result transmitted reference range: 150 - 328 10*3/?L. The reference range was not used to interpret this result as normal/abnormal. MPV (test code = 25736-1) 10.0 fL 9.8-13.0 NRBC/100 WBC (test code = 9292734301) See_Comment [Automated BRAINDIGIT ssage] The system which generated this result transmitted reference range: 0.0 - 10.0 /100 WBCs. The reference range was not used to interpret this result as normal/abnormal. NRBC x10^3 (test code = 1674506374) <0.01 See_Comment [Automated Yodioa ge] The system which generated this result transmitted reference range: 10*3/?L. The reference range was not used to interpret this result as normal/abnormal. GRAN MAT (NEUT) % (test code = 770-8) 46.4 % IMM GRAN % (test code = 5870000417) 0.20 % LYMPH % (test code = 736-9) 44.0 % MONO % (test code = 5905-5) 8.3 % EOS % (test code = 713-8) 0.7 % BASO % (test code = 706-2) 0.4 % GRAN MAT x10^3(ANC) (test code = 3346203073) 3.73 10*3/uL 1.99-6.95 IMM GRAN x10^3 (test code = 2570020112) <0.03 0.00-0.06 LYMPH x10^3 (test code = 731-0) 3.55 10*3/uL 1.09-3.23 H MONO x10^3 (test code = 742-7) 0.67 10*3/uL 0.36-1.02 EOS x10^3 (test code = 711-2) 0.06 10*3/uL 0.06-0.53 BASO x10^3 (test code = 704-7) 0.03 10*3/uL 0.01-0.09 Lab Interpretation (test code = 49653-7) Abnormal [facility] SoutheastPROTHROMBIN TIME / [id number] 10:18:09* Test Item Value Reference Range Interpretation Comme nts PROTIME PATIENT (test code = 5964-2) See_Comment [Automated Yodioa ge] The system which generated this result transmitted reference range: 12.0 - 14.7 Seconds. The reference range was not used to interpret this result as normal/abnormal. INR (test code = 6301-6) Normal INR <1.1; Warfarin Therapeutic range 2.0 to 3.0 or 2.5 to 3.5, depending upon the indications. Lab Interpretation (test code = 83658-5) Normal [facility] SoutheastTROPONIN [id number] 07:43:50* Test Item Value Reference Range Interpretation Comments TROPONIN I (test code = 0668077749) 0.005 ng/mL See_Comment [Automated message] The system [...] of biotin. Lab Interpretation (test code = 61002-3) Normal [facility]COMP. METABOLIC PANEL (15726)2021-10-30 20:56:25* Test Item Value Reference Range Interpretation Comme nts NA (test code = 4089071282) 139 mmol/L 135-145 K (test code = 4299268147) 4.8 mmol/L 3.5-5.0 CL (test code = 3505060690) 105 mmol/L 98-108 CO2 TOTAL (test code = 1712705103) 26 mmol/L 23-31 AGAP (test code = 0360251037) 2-16 BUN (test code = 7461214004) 18 mg/dL 7-23 GLUCOSE (test code = 3661999448) 135 mg/dL 70-110 H CREATININE (test code = 5267522732) 0.98 mg/dL 0.60-1.25 TOTAL BILI (test code = 6594131581) 0.8 mg/dL 0.1-1.1 CALCIUM (test code = 1046361050) 10.0 mg/dL 8.6-10.6 T PROTEIN (test code = 8501629874) 10.3 g/dL 6.3-8.2 H ALBUMIN (test code = 8780306888) 5.5 g/dL 3.5-5.0 H ALK PHOS (test code = 9107855258) 74 U/L 34-122 ALTv (test code = 1742-6) 69 U/L 5-50 H AST(SGOT) (test code = 7897177662) 59 U/L 13-40 H eGFR (test code = 9015101571) mL/min/1.73m2 KRYSTLE (test code = KRYSTLE) Association [...] imaging tests). Lab Interpretation (test code = 27388-5) [facility]normal [facility] 20:56:05* Test Item Value Reference Range Interpretation Comme nts LIPASE (test code = 2020544186) 70 U/L 0-220 Lab Interpretation (test cod e = 82047-6) Normal [facility] WITH [id number] 20:34:20* Test Item Value Reference Range Interpretation [...] 34.3 g/dL 31.2-35.0 RDW-SD (test code = 89018-2) 40.6 fL 38.5-51.6 RDW-CV (test code = 788-0) 12.8 % 12.1-15.4 PLT (test code = 777-3) See_Comment [Automated messa ge] The system which generated this result transmitted reference range: 150 - 328 10*3/?L. The reference range was not used to interpret this result as normal/abnormal. MPV (test code = 24218-0) 9.2 fL 9.8-13.0 L NRBC/100 WBC (test code = 4100197105) See_Comment [Automated me ssage] The system which generated this result transmitted reference range: 0.0 - 10.0 /100 WBCs. The reference range was not used to interpret this result as normal/abnormal. NRBC x10^3 (test code = 6319600730) <0.01 See_Comment [Automated messa ge] The system which generated this result transmitted reference range: 10*3/?L. The reference range was not used to interpret this result as normal/abnormal. GRAN MAT (NEUT) % (test code = 770-8) 67.1 % IMM GRAN % (test code = 5388987577) 0.40 % LYMPH % (test code = 736-9) 24.5 % MONO % (test code = 5905-5) 7.6 % EOS % (test code = 713-8) 0.1 % BASO % (test code = 706-2) 0.3 % GRAN MAT x10^3(ANC) (test code = 8330147259) 7.34 10*3/uL 1.99-6.95 H IMM GRAN x10^3 (test code = 4558173614) 0.04 10*3/uL 0.00-0.06 LYMPH x10^3 (test code = 731-0) 2.67 10*3/uL 1.09-3.23 MONO x10^3 (test code = 742-7) 0.83 10*3/uL 0.36-1.02 EOS x10^3 (test code = 711-2) <0.03 0.06-0.53 L BASO x10^3 (test code = 704-7) 0.03 10*3/uL 0.01-0.09 Lab Interpretation (test code = 17050-3) Abnormal [facility]CREAT[facility] [id number] 05:55:54* Test Item Value Reference Range Interpretation Comme nts CK (test code = 7394441784) 3682 U/L 33-194 H Lab Interpretation (test cod e = 32917-3) Abnormal [facility]CREAT[facility] [id number] 05:55:54* Test Item Value Reference Range Interpretation Comme nts CK (test code = 2916404395) 3682 U/L 33-194 H Lab Interpretation (test cod e = 84720-1) Abnormal [facility] METABOLIC PANEL (NA, K, CL, CO2, GLUCOSE, BUN, CREATININE, CA)2021-05-24 05:02:27* Test Item Value Reference Range Interpretation Comme nts NA (test code = 9042760336) 137 mmol/L 135-145 K (test code = 9550661117) 3.6 mmol/L 3.5-5.0 CL (test code = 9629004217) 105 mmol/L 98-108 CO2 TOTAL (test code = 1000582519) 23 mmol/L 23-31 AGAP (test code = 7037464929) 2-16 BUN (test code = 9887459315) 26 mg/dL 7-23 H GLUCOSE (test code = 1515766287) 95 mg/dL 70-110 CREATININE (test code = 9238975369) 1.31 mg/dL 0.60-1.25 H CALCIUM (test code = 1257997056) 8.6 mg/dL 8.6-10.6 eGFR (test code = 4538789572) mL/min/1.73m2 KRYSTLE (test code = KRYSTLE) Association [...] imaging tests). Lab Interpretation (test code = 21993-3) Abnormal [facility] METABOLIC PANEL (NA, K, CL, CO2, GLUCOSE, BUN, CREATININE, CA)2021-05-24 05:02:27* Test Item Value Reference Range Interpretation Comme nts NA (test code = 0429350809) 137 mmol/L 135-145 K (test code = 1443523608) 3.6 mmol/L 3.5-5.0 CL (test code = 3705586304) 105 mmol/L 98-108 CO2 TOTAL (test code = 8351073410) 23 mmol/L 23-31 AGAP (test code = 1614217130) 2-16 BUN (test code = 5092316266) 26 mg/dL 7-23 H GLUCOSE (test code = 2473230571) 95 mg/dL 70-110 CREATININE (test code = 0570418346) 1.31 mg/dL 0.60-1.25 H CALCIUM (test code = 3409555543) 8.6 mg/dL 8.6-10.6 eGFR (test code = 5028961232) mL/min/1.73m2 KRYSTLE (test code = KRYSTLE) Association [...] imaging tests). Lab Interpretation (test code = 32854-4) Abnormal [facility] [id number] 02:56:10* Test Item Value Reference Range Interpretation Comments TROPONIN I (test code = 4231124133) 0.004 ng/mL See_Comment [Automated message] The system [...] of biotin. Lab Interpretation (test code = 85364-8) Normal [facility] [id number] 02:56:10* Test Item Value Reference Range Interpretation Comments TROPONIN I (test code = 9581006546) 0.004 ng/mL See_Comment [Automated message] The system [...] of biotin. Lab Interpretation (test code = 56905-5) [id number] 02:41:54* Test Item Value Reference Range Interpretation Comme nts CK (test code = 5840340751) 4607 U/L 33-194 H Lab Interpretation (test cod e = 19664-3) Abnormal [facility] [id number] 02:41:54* Test Item Value Reference Range Interpretation Comme nts CK (test code = 2050613871) 4607 U/L 33-194 H Lab Interpretation (test cod e = 23754-1) [facility] [id number] 02:33:28* Test Item Value Reference Range Interpretation Comme nts NT-proBNP (test code = 3708496914) 14 pg/mL See_Comment [Automated message] The system which generated this result transmitted reference range: <=125. The reference range was not used to interpret this result as normal/abnormal. KRYSTLE (test code = RKYSTLE) Biotin has been reported to cause a negative bias, interpret results relative to patient's use of biotin. Lab Interpretation (test code = 06066-3) [id number] 02:33:28* Test Item Value Reference Range Interpretation Comme nts NT-proBNP (test code = 6851473471) 14 pg/mL See_Comment [Automated message] The system which generated this result transmitted reference range: <=125. The reference range was not used to interpret this result as normal/abnormal. KRYSTLE (test code = KRYSTLE) Biotin has been reported to cause a negative bias, interpret results relative to patient's use of biotin. Lab Interpretation (test code = 58955-4) Normal [facility] 02:29:35* Test Item Value Reference Range Interpretation Comme nts APPEARANCE (test code = 4813225905) Clear Clear COLOR (test code = 1480478982) Yellow Yellow PH (test code = 2828033580) 4.8-8.0 SP GRAVITY (test code = 9808596129) 1.003-1.030 GLU U QUAL (test code = 0455244309) Normal Normal BLOOD (test code = 6506950640) Negative Negative KETONES (test code = 7371526746) Negative Negative PROTEIN (test code = 2887-8) Negative Negative UROBILIN (test code = 0924661081) 2.0 mg/dL Normal A BILIRUBIN (test code = 2498628855) Negative Negative NITRITE (test code = 6290752606) Negative Negative LEUK MO (test code = 6218794297) Negative Negative RBC/HPF (test code = 7039066699) See_Comment [Automated Yodioa ge] The system which generated this result transmitted reference range: 0 - 3 HPF. The reference range was not used to interpret this result as normal/abnormal. WBC/HPF (test code = 2349075148) See_Comment [Automated Yodioa ge] The system which generated this result transmitted reference range: 0 - 5 HPF. The reference range was not used to interpret this result as normal/abnormal. BACTERIA (test code = 5423226932) Negative Negative MUCOUS (test code = 3118903655) Slight Negative LPF A SQ EPITH (test code = 5448273934) <1 HPF Lab Interpretation (test code = 78026-7) Abnormal [facility] [id number] 02:29:35* Test Item Value Reference Range Interpretation Comme nts APPEARANCE (test code = 0646703857) Clear Clear COLOR (test code = 6248994987) Yellow Yellow PH (test code = 6737206367) 4.8-8.0 SP GRAVITY (test code = 1190741060) 1.003-1.030 GLU U QUAL (test code = 7689021885) Normal Normal BLOOD (test code = 6759365739) Negative Negative KETONES (test code = 0078392894) Negative Negative PROTEIN (test code = 2887-8) Negative Negative UROBILIN (test code = 1856968324) 2.0 mg/dL Normal A BILIRUBIN (test code = 8650443123) Negative Negative NITRITE (test code = 7624093078) Negative Negative LEUK MO (test code = 3213032668) Negative Negative RBC/HPF (test code = 2786774642) See_Comment [Automated Yodioa ge] The system which generated this result transmitted reference range: 0 - 3 HPF. The reference range was not used to interpret this result as normal/abnormal. WBC/HPF (test code = 4382592545) See_Comment [Automated messa ge] The system which generated this result transmitted reference range: 0 - 5 HPF. The reference range was not used to interpret this result as normal/abnormal. BACTERIA (test code = 2218717766) Negative Negative MUCOUS (test code = 9452844662) Slight Negative LPF A SQ EPITH (test code = 9616432580) <1 HPF Lab Interpretation (test code = 80041-8) Abnormal [facility]. METABOLIC PANEL (21453)2021-05-24 02:25:07* Test Item Value Reference Range Interpretation Comme nts NA (test code = 3197321965) 137 mmol/L 135-145 K (test code = 6368295820) 3.1 mmol/L 3.5-5.0 L CL (test code = 8262888871) 102 mmol/L 98-108 CO2 TOTAL (test code = 9356924544) 22 mmol/L 23-31 L AGAP (test code = 8685068743) 2-16 BUN (test code = 1901259611) 28 mg/dL 7-23 H GLUCOSE (test code = 1752956149) 132 mg/dL 70-110 H CREATININE (test code = 5312725877) 1.77 mg/dL 0.60-1.25 H TOTAL BILI (test code = 5554314148) 1.0 mg/dL 0.1-1.1 CALCIUM (test code = 9142341223) 9.4 mg/dL 8.6-10.6 T PROTEIN (test code = 5482831429) 9.4 g/dL 6.3-8.2 H ALBUMIN (test code = 1322297510) 5.0 g/dL 3.5-5.0 ALK PHOS (test code = 9878940116) 79 U/L 34-122 ALTv (test code = 1742-6) 112 U/L 5-50 H AST(SGOT) (test code = 4687363094) 152 U/L 13-40 H eGFR (test code = 7278997601) mL/min/1.73m2 KRYSTLE (test code = KRYSTLE) Association [...] imaging tests). Lab Interpretation (test code = 76264-1) Abnormal [facility]. METABOLIC PANEL (35114)2021-05-24 02:25:07* Test Item Value Reference Range Interpretation Comme nts NA (test code = 9574842960) 137 mmol/L 135-145 K (test code = 0674900672) 3.1 mmol/L 3.5-5.0 L CL (test code = 0694884453) 102 mmol/L 98-108 CO2 TOTAL (test code = 9671161376) 22 mmol/L 23-31 L AGAP (test code = 1053226832) 2-16 BUN (test code = 4321599629) 28 mg/dL 7-23 H GLUCOSE (test code = 8748891280) 132 mg/dL 70-110 H CREATININE (test code = 9829897093) 1.77 mg/dL 0.60-1.25 H TOTAL BILI (test code = 1257146166) 1.0 mg/dL 0.1-1.1 CALCIUM (test code = 9453192164) 9.4 mg/dL 8.6-10.6 T PROTEIN (test code = 5831999277) 9.4 g/dL 6.3-8.2 H ALBUMIN (test code = 3696806702) 5.0 g/dL 3.5-5.0 ALK PHOS (test code = 0240206305) 79 U/L 34-122 ALTv (test code = 1742-6) 112 U/L 5-50 H AST(SGOT) (test code = 2356083040) 152 U/L 13-40 H eGFR (test code = 8024573564) mL/min/1.73m2 KRYSTLE (test code = KRYSTLE) Association [...] imaging tests). Lab Interpretation (test code = 34118-2) Abnormal [facility] WITH [id number] 02:03:22* Test Item Value Reference Range Interpretation Comme nts WBC (test code = 6690-2) See_Comment [Automated Yodioa ge] The system which generated this result transmitted reference range: 4.20 - 10.70 10*3/?L. The reference range was not used to interpret this result as normal/abnormal. RBC (test code = 789-8) See_Comment [Automated Yodioa ge] The system which generated this result [...] g/dL 31.2-35.0 H RDW-SD (test code = 55184-5) 39.7 fL 38.5-51.6 RDW-CV (test code = 788-0) 12.7 % 12.1-15.4 PLT (test code = 777-3) See_Comment [Automated Yodioa ge] The system which generated this result transmitted reference range: 150 - 328 10*3/?L. The reference range was not used to interpret this result as normal/abnormal. MPV (test code = 35116-3) 9.7 fL 9.8-13.0 L NRBC/100 WBC (test code = 8738881737) See_Comment [Automated BRAINDIGIT ssage] The system which generated this result transmitted reference range: 0.0 - 10.0 /100 WBCs. The reference range was not used to interpret this result as normal/abnormal. NRBC x10^3 (test code = 3754107513) <0.01 See_Comment [Automated messa ge] The system which generated this result transmitted reference range: 10*3/?L. The reference range was not used to interpret this result as normal/abnormal. GRAN MAT (NEUT) % (test code = 770-8) 45.9 % IMM GRAN % (test code = 6632753477) 0.20 % LYMPH % (test code = 736-9) 41.7 % MONO % (test code = 5905-5) 11.6 % EOS % (test code = 713-8) 0.3 % BASO % (test code = 706-2) 0.3 % GRAN MAT x10^3(ANC) (test code = 8106212834) 3.95 10*3/uL 1.99-6.95 IMM GRAN x10^3 (test code = 0848839907) <0.03 0.00-0.06 LYMPH x10^3 (test code = 731-0) 3.60 10*3/uL 1.09-3.23 H MONO x10^3 (test code = 742-7) 1.00 10*3/uL 0.36-1.02 EOS x10^3 (test code = 711-2) 0.03 10*3/uL 0.06-0.53 L BASO x10^3 (test code = 704-7) 0.03 10*3/uL 0.01-0.09 Lab Interpretation (test code = 59358-5) Abnormal [facility] WITH [id number] 02:03:22* Test Item Value Reference Range Interpretation Comme nts WBC (test code = 6690-2) See_Comment [Automated messa ge] The system which generated this result transmitted reference range: 4.20 - 10.70 10*3/?L. The reference range was not used to interpret this result as normal/abnormal. RBC (test code = 789-8) See_Comment [Automated Yodioa ge] The system which generated this result [...] g/dL 31.2-35.0 H RDW-SD (test code = 27102-8) 39.7 fL 38.5-51.6 RDW-CV (test code = 788-0) 12.7 % 12.1-15.4 PLT (test code = 777-3) See_Comment [Automated messa ge] The system which generated this result transmitted reference range: 150 - 328 10*3/?L. The reference range was not used to interpret this result as normal/abnormal. MPV (test code = 31100-3) 9.7 fL 9.8-13.0 L NRBC/100 WBC (test code = 9109168907) See_Comment [Automated BRAINDIGIT ssage] The system which generated this result transmitted reference range: 0.0 - 10.0 /100 WBCs. The reference range was not used to interpret this result as normal/abnormal. NRBC x10^3 (test code = 8273577034) <0.01 See_Comment [Automated Yodioa ge] The system which generated this result transmitted reference range: 10*3/?L. The reference range was not used to interpret this result as normal/abnormal. GRAN MAT (NEUT) % (test code = 770-8) 45.9 % IMM GRAN % (test code = 8606491760) 0.20 % LYMPH % (test code = 736-9) 41.7 % MONO % (test code = 5905-5) 11.6 % EOS % (test code = 713-8) 0.3 % BASO % (test code = 706-2) 0.3 % GRAN MAT x10^3(ANC) (test code = 8406963898) 3.95 10*3/uL 1.99-6.95 IMM GRAN x10^3 (test code = 9985262812) <0.03 0.00-0.06 LYMPH x10^3 (test code = 731-0) 3.60 10*3/uL 1.09-3.23 H MONO x10^3 (test code = 742-7) 1.00 10*3/uL 0.36-1.02 EOS x10^3 (test code = 711-2) 0.03 10*3/uL 0.06-0.53 L BASO x10^3 (test code = 704-7) 0.03 10*3/uL 0.01-0.09 Lab Interpretation (test code = 79789-1) Abnormal [facility]- (ID NOW RAPID TESTING)2021-05-02 00:31:00* Test Item Value Reference Range Interpretation Comme nts SARS-CoV-2 Rapid ID NOW (test code = 11157-5) Not Detected Not Detected KRYSTLE (test code = KRYSTLE) ID NOW COVID-19 As say is an isothermal nucleic acid amplification test intended for the qualitative detection of nucleic acid from SARS-CoV-2 viral RNA in nasopharyngeal (TALENT ASSOCIATE) specimens. It is used under Emergency Use [...] clinically indicated. Lab Interpretation (test code = 99061-4) Normal [facility] STREP SCREEN FOR GROUP [id number] 00:25:45* Test Item Value Reference Range Interpretation Comme nts Streptococcus pyogenes (grou p A) antigen (test code = 56286-0) Negative Negative Lab Interpretation (test cod e = 64138-9) Normal [facility]- (ID NOW RAPID TESTING)2021-04-02 01:41:42* Test Item Value Reference Range Interpretation Comme nts SARS-CoV-2 Rapid ID NOW (test code = 49564-8) Not Detected Not Detected KRYSTLE (test code = KRYSTLE) ID NOW COVID-19 As say is an isothermal nucleic acid amplification test intended for the qualitative detection of nucleic acid from SARS-CoV-2 viral RNA in nasopharyngeal (TALENT ASSOCIATE) specimens. It is used under Emergency Use [...] clinically indicated. Lab Interpretation (test code = 76454-6) [facility] [id number] 01:39:31* Test Item Value Reference Range Interpretation Comme nts Streptococcus pyogenes (grou p A) antigen (test code = 16276-9) Negative Negative Lab Interpretation (test cod e = 85304-2) Normal [facility] W[facility] 3+ VW [id number] 02:41:03 Impression: No acute osseous abnormality. AFC: [id number] 460End of Report Exam: XR WRIST 3+ [...] soft tissue edema.IMPRESSIONImpression: No acute osseous abnormality.AFC: [id number] 460End of Report [facility]ieUrinalysis2021-07-05 01:32:01* Test Item Value Reference Range Interpretation Comme nts APPEARANCE (test code = 6208574706) Clear Clear COLOR (test code = 0970555179) Yellow Yellow PH (test code = 2815884489) 4.8-8.0 SP GRAVITY (test code = 7714604132) 1.003-1.030 GLU U QUAL (test code = 7525134928) Normal Normal BLOOD (test code = 8768029058) Negative Negative KETONES (test code = 2623005022) Negative Negative PROTEIN (test code = 2887-8) Negative Negative UROBILIN (test code = 1857787769) 2.0 mg/dL Normal A BILIRUBIN (test code = 9496450487) Negative Negative NITRITE (test code = 0949605095) Negative Negative LEUK MO (test code = 5431211963) Negative Negative RBC/HPF (test code = 0647655057) See_Comment [Automated [employer]] The system which generated this result transmitted reference range: 0 - 3 HPF. The reference range was not used to interpret this result as normal/abnormal. WBC/HPF (test code = 2135762050) See_Comment [Automated Yodioa Leetchi] The system which generated this result transmitted reference range: 0 - 5 HPF. The reference range was not used to interpret this result as normal/abnormal. BACTERIA (test code = 5538352103) Few Negative A MUCOUS (test code = 6775249458) Slight Negative LPF A SQ EPITH (test code = 5249179265) <1 HPF Lab Interpretation (test code = 29706-8) [facility] 1 [id number] 04:09:05Impression: Mild thickening of the sol of the central airways, possibly reflectinginfectious or inflammatory bronchitis. RL: 460 AFC: 82812 Ordering physician: DARNELL HSU Indication: Cough and [...] airways, possibly reflectinginfectious or inflammatory bronchitis.RL: 460AF: [id number] signed byMarisol Manzo MD, PhD at 11/14/2020 10:09 PM [facility]COMPREHENSIVE METABOLIC [id number] 00:00:00* Test Item Value Reference Range Interpretation Comme nts GLUCOSE (test code = 2217) 101 MG/DL BUN (test code = 2208) 11 MG/DL CREATININE (test code = 2214) 0.88 MG/DL eGFR AMER. (test cod e = 49225) 118 ML/MIN/1.73 eGFR NON- AMER. (test code = 86762) 102 ML/MIN/1.73 CALC BUN/CREAT (test code = [...] (test code = 2219) 88 U/L N-TERMINAL [id number] 15:43:00* Test Item Value Reference Range Interpretation Comme nts NT-proBNP (test code = 0168710786) <11 See_Comment [Automated message] The system which generated this result transmitted reference range: <=125 pg/mL. The reference range was not used to interpret this result as normal/abnormal. KRYSTLE (test code = KRYSTLE) Biotin has been reported to cause a negative bias, interpret results relative to patient's use of biotin. Lab Interpretation (test code = 98760-2) Normal [facility] WITH [id number] 15:27:00* Test Item Value Reference Range Interpretation Comme nts WBC (test code = 6690-2) See_Comment [Automated Yodioa ge] The system which generated this result transmitted reference range: 4.20 - 10.70 10*3/?L. The reference range was not used to interpret this result as normal/abnormal. RBC (test code = 789-8) See_Comment [Automated Yodioa ge] The system which generated this result [...] g/dL 31.2-35 H RDW-SD (test code = 12910-8) 37.3 fL 38.5-51.6 L RDW-CV (test code = 788-0) 11.9 % 12.1-15.4 L PLT (test code = 777-3) See_Comment [Automated Yodioa ge] The system which generated this result transmitted reference range: 150 - 328 10*3/?L. The reference range was not used to interpret this result as normal/abnormal. MPV (test code = 04010-3) 9.7 fL 9.8-13 L NRBC/100 WBC (test code = 4410345947) See_Comment [Automated me ssage] The system which generated this result transmitted reference range: 0.0 - 10.0 /100 WBCs. The reference range was not used to interpret this result as normal/abnormal. NRBC x10^3 (test code = 6827678653) <0.01 See_Comment [Automated messa ge] The system which generated this result transmitted reference range: 10*3/?L. The reference range was not used to interpret this result as normal/abnormal. GRAN MAT (NEUT) % (test code = 770-8) 29.2 % IMM GRAN % (test code = 0724437336) 0.20 % LYMPH % (test code = 736-9) 59.0 % MONO % (test code = 5905-5) 10.1 % EOS % (test code = 713-8) 1.1 % BASO % (test code = 706-2) 0.4 % GRAN MAT x10^3(ANC) (test code = 0430117453) 1.57 10*3/uL 1.99-6.95 L IMM GRAN x10^3 (test code = 9361148819) <0.03 0-0.06 LYMPH x10^3 (test code = 731-0) 3.17 10*3/uL 1.09-3.23 MONO x10^3 (test code = 742-7) 0.54 10*3/uL 0.36-1.02 EOS x10^3 (test code = 711-2) 0.06 10*3/uL 0.06-0.53 BASO x10^3 (test code = 704-7) <0.03 0.01-0.09 Lab Interpretation (test code = 60865-9) [facility]normal [facility] 1 [id number] 15:13:32No acute cardiopulmonary process. Preliminary Report Dictated [...] have reviewed thisstudy and agree withthe above report.[facility] SoutheastTRMUS[facility] CENTERMARÍA [id number] 14:59:00* Test Item Value Reference Range Interpretation Comme nts TROPONIN I (test code = 8977498020) <0.012 See_Comment [Automated message] The system which [...] biotin. ? Lab Interpretation (test code = 66045-9) Normal [facility]. METABOLIC PANEL (39206)2020-09-30 14:59:00* Test Item Value Reference Range Interpretation Comme nts NA (test code = 1328212392) 139 mmol/L 135-145 K (test code = 9223116096) 3.8 mmol/L 3.5-5 CL (test code = 9984955326) 103 mmol/L 98-108 CO2 TOTAL (test code = 4089476467) 26 mmol/L 23-31 AGAP (test code = 0090812749) 2-16 BUN (test code = 4334417171) 11 mg/dL 7-23 GLUCOSE (test code = 7077420296) 163 mg/dL 70-110 H CREATININE (test code = 2791127665) 0.85 mg/dL 0.6-1.25 TOTAL BILI (test code = 7547579447) 0.6 mg/dL 0.1-1.1 CALCIUM (test code = 7286937749) 9.0 mg/dL 8.6-10.6 T PROTEIN (test code = 8984221131) 8.0 g/dL 6.3-8.2 ALBUMIN (test code = 4673725233) 4.4 g/dL 3.5-5 ALK PHOS (test code = 1131217615) 75 U/L 34-122 ALTv (test code = 1742-6) 61 U/L 5-50 H AST(SGOT) (test code = 8881579993) 54 U/L 13-40 H eGFR Calculation (Non-) (test code = 8294704561) mL/min/1.73m2 eGFR Calculation () (test code = 6546334321) mL/min/1.73m2 KRYSTLE (test code = KRYSTLE) Association [...] imaging tests). Lab Interpretation (test code = 59498-1) Abnormal [facility] SoutheastLIPASE, [id number] 14:59:00* Test Item Value Reference Range Interpretation Comme nts LIPASE (test code = 3296014997) 116 U/L 0-220 Lab Interpretation (test cod e = 46943-2) Normal [facility] SoutheastTroponin [id number] 04:30:00* Test Item Value Reference Range Interpretation Comme nts TROPONIN I (test code = 8863182640) <0.012 See_Comment [Automated message] The system which [...] biotin. ? Lab Interpretation (test code = 45339-4) Normal [facility] SoutheastComplete Metabolic [id number] 03:24:00* Test Item Value Reference Range Interpretation Comme nts NA (test code = 7896605160) 137 mmol/L 135-145 K (test code = 0113723007) 4.7 mmol/L 3.5-5 CL (test code = 7171280929) 101 mmol/L 98-108 CO2 TOTAL (test code = 6409198098) 27 mmol/L 23-31 AGAP (test code = 6992719381) 2-16 BUN (test code = 1819159695) 16 mg/dL 7-23 GLUCOSE (test code = 6229522021) 226 mg/dL 70-110 H CREATININE (test code = 7511142729) 1.13 mg/dL 0.6-1.25 TOTAL BILI (test code = 6398643801) 0.7 mg/dL 0.1-1.1 CALCIUM (test code = 4175725439) 9.3 mg/dL 8.6-10.6 T PROTEIN (test code = 2440356441) 7.8 g/dL 6.3-8.2 ALBUMIN (test code = 7703414347) 3.9 g/dL 3.5-5 ALK PHOS (test code = 9349868074) 79 U/L 34-122 ALTv (test code = 1742-6) 62 U/L 5-50 H AST(SGOT) (test code = 7957235778) 49 U/L 13-40 H eGFR Calculation (Non-) (test code = 4289348637) mL/min/1.73m2 eGFR Calculation () (test code = 5838035104) mL/min/1.73m2 KRYSTLE (test code = KRYSTLE) Association [...] imaging tests). Lab Interpretation (test code = 36659-0) Abnormal [facility] SoutheastLipase, [id number] 03:23:00* Test Item Value Reference Range Interpretation Comme nts LIPASE (test code = 0076469264) 317 U/L 0-220 H Lab Interpretation (test cod e = 61877-5) Abnormal [facility] SoutheastCBC with [id number] 03:21:00* Test Item Value Reference Range Interpretation Comme nts WBC (test code = 6690-2) See_Comment [Automated [employer]] The system which generated this result transmitted reference range: 4.20 - 10.70 10*3/?L. The reference range was not used to interpret this result as normal/abnormal. RBC (test code = 789-8) See_Comment [Automated [employer]] The system which generated this result transmitted [...] g/dL 31.2-35 H RDW-SD (test code = 83184-5) 37.9 fL 38.5-51.6 L RDW-CV (test code = 788-0) 12.4 % 12.1-15.4 PLT (test code = 777-3) See_Comment [Automated Yodioa ge] The system which generated this result transmitted reference range: 150 - 328 10*3/?L. The reference range was not used to interpret this result as normal/abnormal. MPV (test code = 32046-4) 9.7 fL 9.8-13 L NRBC/100 WBC (test code = 1920493453) See_Comment [Automated BRAINDIGIT ssage] The system which generated this result transmitted reference range: 0.0 - 10.0 /100 WBCs. The reference range was not used to interpret this result as normal/abnormal. NRBC x10^3 (test code = 4156735968) <0.01 See_Comment [Automated Yodioa ge] The system which generated this result transmitted reference range: 10*3/?L. The reference range was not used to interpret this result as normal/abnormal. GRAN MAT (NEUT) % (test code = 770-8) 36.7 % IMM GRAN % (test code = 2788676908) 0.10 % LYMPH % (test code = 736-9) 50.9 % MONO % (test code = 5905-5) 11.1 % EOS % (test code = 713-8) 0.8 % BASO % (test code = 706-2) 0.4 % GRAN MAT x10^3(ANC) (test code = 6878663483) 2.59 10*3/uL 1.99-6.95 IMM GRAN x10^3 (test code = 4235400788) <0.03 0-0.06 LYMPH x10^3 (test code = 731-0) 3.61 10*3/uL 1.09-3.23 H MONO x10^3 (test code = 742-7) 0.79 10*3/uL 0.36-1.02 EOS x10^3 (test code = 711-2) 0.06 10*3/uL 0.06-0.53 BASO x10^3 (test code = 704-7) 0.03 10*3/uL 0.01-0.09 Lab Interpretation (test code = 72268-8) Abnormal [facility] History and Physical Notes Date/Time Note Provider [...] 220). On a 12/2022 hospital stay at [facility], he was diagnosed with an idiopathic chronic [...] by mouth daily. 90 tablet 1 Pancrelipase, Udt-Ltyv-Cosx, (Creon) 94834-638[address] units oral Cap DR Particles Take 1 [...] He was getting medicinal marijuana while in [place] Sexual activity: Yes Partners: Male ROS: 06/27 [...] questions were answered. Gibran Mcadams MD [facility]
[2024-09-12] MEDS ORDERED: FAMOTIDINE 20 MG/2 ML VIAL IV ONE (15:25)
[2024-09-12] MEDS ORDERED: METHYLPREDNISOLONE 125 MG INJ ONE (15:25)
[2024-09-12] MEDS ORDERED: DIPHENHYDRAMINE 50 MG/ML VIAL ONE (15:25)
[2024-09-12] MEDS ORDERED: NA CHLORIDE 0.9% 1,000 ML ONE (15:25)
[2024-09-12] MEDS ORDERED: KETOROLAC 30 MG/ML INJ ONE (16:25)
[2024-09-12] MEDS ORDERED: IPRATROPIUM BROM 0.5MG/2.5ML ONE (16:25)
[2024-09-12] MEDS ORDERED: ALBUTEROL 2.5 MG/3 ML NEB SOL ONE (16:25)
--- NOTE | 2024-09-12 17:06 | EDPHYS ---
Physician Documentation [facility] Name: Noah Putnam Age: 53 yrs Sex: Male : 1970 Arrival Date: 09/12/2024 Time: 14:46 Bed 8 Private MD: ED Physician Yamilka Russo HPI: 09/12 15:20 This 53 yrs old Black Male presents to ER via Ambulatory with complaints of Allergic sb4 Reaction, Swelling Of Tongue. 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 states this is the sb4 third time he has been stung and each time he has gone into anaphylaxis. states he does not have an epi pen with him currently but has one back home in [place]. states currently he feels like his tongue is swollen and his face is tingly. he denies any chest pain, shortness of breath, or wheezing. Historical: - Allergies: 14:58 Bee Venom; hb - Home Meds: 14:58 amlodipine 10 mg tab 1 tab once daily [Active]; lisinopril 10 mg Oral tab 1 tab once hb daily [Active]; - PMHx: 14:58 chronic kidney disease; Chronic Pancreatitis; Herniated disc; Hypertension; hb - PSHx: 14:58 left arm surgery; hb - Immunization history:: Adult Immunizations up to date. - Infectious Disease History:: Denies. - Social history:: Smoking status: Patient/guardian denies using tobacco. ROS: 15:22 Constitutional: Negative for fever, chills, and weight loss, sb4 15:22 ENT: Positive for per HPI, 15:22 All other systems are negative, Exam: 15:22 Constitutional: This is a well developed, well nourished patient who is awake, alert, sb4 and in no acute distress. Head/Face: Normocephalic, atraumatic. Eyes: Extra-ocular motions intact. Periorbital areas with no swelling, redness, or edema. ENT: Mucous membranes moist. Cardiovascular: Regular rate and rhythm with a normal S1 and S2. Respiratory: No increased work of breathing, no retractions or nasal flaring. Abdomen/GI: Soft, non-tender, no distension. Skin: Warm, dry with normal turgor. Normal color with no rashes, no lesions, and no evidence of cellulitis. Vital Signs: 15:00 BP 157 / 95; Pulse 67; Resp 15; Temp 97; Pulse Ox 99% on R/A; ko1 17:00 BP 165 / 89; Pulse 87; Resp 16; Temp 98; Pulse Ox 99% on R/A; ko1 MDM: 15:07 Medical Screening Exam initiated sb4 16:02 Data reviewed: vital signs, nurses notes, and as a result, I will discharge patient. sb4 Counseling: I had a detailed discussion with the patient and/or guardian regarding the historical points, exam findings, and any diagnostic results supporting the discharge/admit diagnosis, to return to the emergency department if symptoms worsen or persist or if there are any questions or concerns that arise at home. 09/12 15:07 Order name: IV Start; Complete Time: 15:35 sb4 Administered Medications: 15:30 Drug: NS 0.9% IV 1000 ml IV at 1 bolus Per protocol; to be given as a bolus over 60 ko1 minutes Route: IV; Rate: 1 bolus; Site: right antecubital; 17:07 Follow up: Response: No adverse reaction; IV Status: Completed infusion ko1 15:30 Drug: Famotidine IVP 20 mg IVP once; dilute with 10 mL 0.9% NaCl; give over 2 minutes ko1 Route: IVP; Site: right antecubital; 15:45 Follow up: Response: No adverse reaction ko1 15:32 Drug: MethylPrednisoLONE IVP 125 mg IVP once Route: IVP; Site: right antecubital; ko1 15:47 Follow up: Response: No adverse reaction ko1 15:35 Drug: diphenhydrAMINE IVP 50 mg IVP once Route: IVP; Site: right antecubital; ko1 15:50 Follow up: Response: No adverse reaction ko1 16:30 Drug: DuoNeb Nebulize (3:1) (2.5 mg - 0.5 mg) 3 ml Nebulizer once Route: Nebulizer; ko1 17:00 Follow up: Response: No adverse reaction ko1 16:30 Drug: Ketorolac IVP 30 mg IVP once Route: IVP; Site: right antecubital; ko1 16:45 Follow up: Response: No adverse reaction ko1 Disposition Summary: 09/12/24 17:06 Discharge Ordered Notes: Location: Home sb4 Problem: new sb4 Symptoms: have improved sb4 Condition: Stable sb4 Diagnosis - Allergic reaction sb4 Followup: sb4 - With: Emergency Department - When: As needed - Reason: Trouble breathing, Worsening of condition Discharge Instructions: - Discharge Summary Sheet sb4 - Anaphylactic Reaction, Adult sb4 - Bee, Wasp, or Hornet Sting, Adult sb4 Forms: - Patient Portal Instructions sb4 - Leadership Thank You Letter sb4 Prescriptions: - Pepcid 20 mg Oral Tablet - take 1 tablet ORAL route every 12 hours for 5 days; 10 tablet; Refills: 0, sb4 Product Selection Permitted - Loratadine 10 mg Oral Tablet - take 1 tablet ORAL route once daily; 14 tablet; Refills: 0, Product Selection sb4 Permitted - Prednisone 20 mg Oral Tablet - take 2 tablets ORAL route once daily for 5 days; 10 tablet; Refills: 0, Product sb4 Selection Permitted Signatures: Luciana Lopes, RN RN Ana Rosen RN RN koHien Dempsey PA-C PA-C sb4
--- NOTE | 2024-09-12 17:06 | ER ---
Nurse's Notes [facility] Name: Noah Putnam Age: 53 yrs Sex: Male : 1970 Arrival Date: 09/12/2024 Time: 14:46 Bed 8 Private MD: Diagnosis: Allergic reaction Presentation: 09/12 14:55 Chief complaint: Patient states: Stung by a bee to L upper arm approximately 20-30 ss minutes ago. Allergies to been venom. Coronavirus screen: Client denies travel out of the [place] in the last 14 days. Ebola Screen: Patient denies exposure to infectious person. Patient denies travel to an Ebola-affected area in the 21 days before illness onset. Onset: The symptoms/episode began/occurred suddenly. Anaphylaxis evaluation, tingling to mouth. Initial Sepsis Screen: Does the patient meet any 2 criteria? No. Patient's initial sepsis screen is negative. Does the patient have a suspected source of infection? No. Patient's initial sepsis screen is negative. Risk Assessment: Do you want to hurt yourself or someone else? Patient reports no desire to harm self or others. Onset of symptoms was September 12, 2024. 14:55 Acuity: BREEZY 2 ss 14:55 Method Of Arrival: Ambulatory ss Historical: - Allergies: 14:58 Bee Venom; hb - Home Meds: 14:58 amlodipine 10 mg tab 1 tab once daily [Active]; lisinopril 10 mg Oral tab 1 tab once hb daily [Active]; - PMHx: 14:58 chronic kidney disease; Chronic Pancreatitis; Herniated disc; Hypertension; hb - PSHx: 14:58 left arm surgery; hb - Immunization history:: Adult Immunizations up to date. - Infectious Disease History:: Denies. - Social history:: Smoking status: Patient/guardian denies using tobacco. Screenin:59 [place] [facility] Fall Risk Assessment (Adult) History of falling in the last 3 months, hb including since admission No falls in past 3 months (0 pts) Confusion or Disorientation No (0 pts) Intoxicated or Sedated No (0 pts) Impaired Gait No (0 pts) Mobility Assist Device Used No (0 pt) Altered Elimination No (0 pt) Score/Fall Risk Level 0 - 2 = Low Risk Oriented to surroundings, Maintained a safe environment, Educated pt \T\ family on fall prevention, incl call for assistance when getting out of bed. Abuse screen: Denies threats or abuse. Denies injuries from another. Nutritional screening: No deficits noted. Tuberculosis screening: No symptoms or risk factors identified. Assessment: 14:58 General: Appears in no apparent distress. Behavior is cooperative, anxious. Pain: Pain hb currently is 3 out of 10 on a pain scale. Neuro: Level of Consciousness is awake, alert, obeys commands, Oriented to person, place, time, situation. Cardiovascular: Patient's skin is warm and dry. Respiratory: Airway is patent Respiratory effort is even, unlabored, Respiratory pattern is regular, symmetrical. GI: No signs and/or symptoms were reported involving the gastrointestinal system. : No signs and/or symptoms were reported regarding the genitourinary system. EENT: No signs and/or symptoms were reported regarding the EENT system. Derm: Skin is pink, warm \T\ dry. Musculoskeletal: No signs and/or symptoms reported regarding the musculoskeletal system. 15:00 Respiratory: Breath sounds are clear bilaterally. ko1 Vital Signs: 15:00 BP 157 / 95; Pulse 67; Resp 15; Temp 97; Pulse Ox 99% on R/A; ko1 17:00 BP 165 / 89; Pulse 87; Resp 16; Temp 98; Pulse Ox 99% on R/A; ko1 ED Course: 14:48 Patient arrived in ED. ra3 14:55 Arm band placed on right wrist. ss 14:57 Luciana Lopes, RN is Primary Nurse. hb 14:57 Inserted saline lock: 18 gauge in right antecubital area, using aseptic technique. hb Flushed with 10 mL NS. 14:59 Triage completed. ss 14:59 Patient has correct armband on for positive identification. Provided Education on: USE hb OF CALL LIGHT . 15:00 IV discontinued, intact, bleeding controlled, No redness/swelling at site. Pressure ko1 dressing applied. 15:07 Hien Sears PA-C is PHCP. sb4 15:07 Yamilka Russo MD is Attending Physician. sb4 17:00 No provider procedures requiring assistance completed. ko1 Administered Medications: 15:30 Drug: NS 0.9% IV 1000 ml IV at 1 bolus Per protocol; to be given as a bolus over 60 ko1 minutes Route: IV; Rate: 1 bolus; Site: right antecubital; 17:07 Follow up: Response: No adverse reaction; IV Status: Completed infusion ko1 15:30 Drug: Famotidine IVP 20 mg IVP once; dilute with 10 mL 0.9% NaCl; give over 2 minutes ko1 Route: IVP; Site: right antecubital; 15:45 Follow up: Response: No adverse reaction ko1 15:32 Drug: MethylPrednisoLONE IVP 125 mg IVP once Route: IVP; Site: right antecubital; ko1 15:47 Follow up: Response: No adverse reaction ko1 15:35 Drug: diphenhydrAMINE IVP 50 mg IVP once Route: IVP; Site: right antecubital; ko1 15:50 Follow up: Response: No adverse reaction ko1 16:30 Drug: DuoNeb Nebulize (3:1) (2.5 mg - 0.5 mg) 3 ml Nebulizer once Route: Nebulizer; ko1 17:00 Follow up: Response: No adverse reaction ko1 16:30 Drug: Ketorolac IVP 30 mg IVP once Route: IVP; Site: right antecubital; ko1 16:45 Follow up: Response: No adverse reaction ko1 Medication: 17:00 VIS not applicable for this client. ko1 Outcome: 15:00 Discharged to home ambulatory, with friend, ko1 15:00 Condition: stable 15:00 Discharge instructions given to patient, friend, Instructed on discharge instructions, follow up and referral plans. medication usage, Demonstrated understanding of instructions, follow-up care, medications, Prescriptions given X 3, 17:06 Discharge ordered by MD. crump 17:29 Patient left the ED. ko1 Signatures: Lawanda Marti RN RN Luciana Lopes RN RN hb Oliver, Kathy, RN RN ko1 Hien Sears, PADinora PADinora [email or web address] Meron Estrada ra3
[2024-09-12 20:42] VITALS: O2SAT 99
[2024-09-12 20:45] VITALS: BP 165/89; TEMP 98
== END 2024-09-12 17:29 | disposition home or self-care (01) ==
LOC: ER 14:46
DX: R20.2 Paresthesia of skin (principal); R22.9 Localized swelling, mass and lump, unspecified; T63.441A Toxic effect of venom of bees, accidental (unintentional), initial encounter; Z91.030 Bee allergy status
CPT/HCPCS: 96361; 96375; 96374; 99284; J1200; J7613; J7644; J2919; J7030

== ENCOUNTER 2024-10-12 07:41 | Inpatient (IN) | payer OTHER ==
--- OUTSIDE RECORDS SUMMARY | 2024-10-12 07:51 | XMS REPORT | Continuity of Care Document ---
Author Name Unknown Address [address] [facility] [address] [place] [address] [facility] thconnect Address [address] [facility] [address] [place] [address] Care Team Providers Care Psychology Professor Name Role Phone Emily Gaines Primary Care Physician Mayuri James Attending Clinician Unavailabl HAYDEN Montemayor Attending Clinician Unavailable OMARI RAZA Attending Clinician Unavailable ADRI TAYLOR Attending Clinician Unavailable MD RICKI Attending Clinician Unavailab LEANDRO Dodson Attending Clinician Unava ilable LUKE CLARKE Attending Clinician Unavailable LUKE CLARKE Attending Clinician Unavailable Luke Clarke PA-C Attending Clinician [phone] [facility] Attending Clinician Unavailabl FOUZIA Bang Attending Clinician Unavailable GIBRAN MCADAMS Attending Clinician Unavailable BROOK ALLEN Attending Clinician Unav ailable LAB90 Attending Clinician Unavailable Trevor TAYLOR Attending Clinician Unavailable Trevor TAYLOR Attending Clinician Unavailable GERALD VIDAL Attending Clinician Unavailable LAB47 Attending Clinician Unavailable Karl Ferguson MD Attending Clinician [phone] OUTSIDE, REPORTED Attending Clinician UnavailElida Patrick MD Attending Clinician [phone] LETI RIVAS Attending Clinician Unavailable LETI RIVAS Attending Clinician Unavailable ABRAHAM ORANTES Attending Clinician Unavailable Abraham Orantes MD Attending Clinician [phone] Chavez Turner DO Attending Clinician [phone] CALLIE MUNOZ Attending Clinician Unavailable CALLIE MUNOZ Attending Clinician Unavailable MERLYN HIDALGO Attending Clinician Unavailable Doctor Unassigned, Attu Station Attending Clinician U navailable ADAN CHESTER Attending Clinician Unav ailable KIARA RICHARDSON Attending Clinician Unava ilable JOHNATHAN AVILA Attending Clinician Unavail able Johnathan Avila MD Attending Clinician Kristian Paul Attending Clinician Unavaila ANNCY Mayfield Attending Clinician Unavailabl STEPHIE Cortes Attending Clinician Unavailab MIRIAM Cervantes Attending Clinician Unavailable MIRIAM LUDWIG Attending Clinician Unavailable Haresh Santamaria MD Attending Clinician + Kristian Gleason Attending Clinician Unavailab le [place], PhysPrem Attending Clinician Unavailab le LAB56 Attending Clinician Unavailable MANFRED LANE Attending Clinician UnavailAYDIN Peralta Attending Clinician Unavailable Carlo ALLEN, Aydin Attending Clinician + NATALI ALEXANDER Attending Clinician Unavailab Natali Glass DO Attending Clinician + ADELAIDE GOODWIN Attending Clinician Unavailable Christa ALLEN, Adelaide Attending Clinician [phone] HEMALATHA MORA Attending Clinician Unavailable Vinclul VENEER REDRIER, Hemalatha Attending Clinician +[phone] JESSICA GONZALES S Attending Clinician Unavailable Jessica Pradhan S Attending Clinician [phone] SOHAM CLARKE Attending Clinician Unavaillupillo Clarke MD, Soham Sethi Attending Clinician +[phone] Azam VENEER REDRIER, Cynbrian Attending Clinician +[phone] MARK HERNANDEZ Attending Clinician Unavailable Mark Hernandez MD Attending Clinician [phone] Ellen Carroll RN Attending Clinician + [phone] EMELIA GALLEGO Attending Clinician Unavailable Ibcat FRENCHP, Madison F Attending Clinician [phone] Emelia Gallego DO Attending Clinician [phone] Shannon WALDROP, Felipe Street Attending Clinician +[phone] FELIPE ORTEGA Attending Clinician Unavailable Elliot HICKS, Gabriella Richard Attending Clinician +[phone] Nurse, Adc Pob Immunization Attending Clinician Unavailable David Clarke DO Attending Clinician [phone] Nikhil Trevizo Attending Clinician [phone] NIKHIL BLANTON Attending Clinician Unavailable Mirna Mar RN Attending Clinician Unavailab atilio Laurent, Patient Does Not Have A Attending Clinician Darnell Bustillo Attending Clinician + [phone] Jessy Siddiqui DO Attending Clinician [phone] LUKE CLARKE Admitting Clinician Unavailable Trevor TAYLOR [...] Clinician Unavailable Mark Hernandez MD Admitting Clinician [phone] Trevor TAYLOR Admitting Clinician Unavailable EMELIA GALLEGO Admitting Clinician Unavailable Emelia Gallego DO Admitting Clinician [phone] DARNELL HSU Admitting Clinician Unavailable Payers Payer Name Policy Type Policy Number Effective Date Expirati on Date Source DEEP GAP 5 [facility] [place] 94 9 [id number] 2024 00:00:00 [employer] W/ LUZ MARIA NG OOO [id number] 2023 00:00:00 [facility] INS PROGRAM 2 [id number] 2023 00:00:00 [employer] GENERIC [id number] 2021 00:00:00 [place] [address] [id number] [facility] Problems Condition Name Condition Details Condition [...] Disease Active 4-04 00:00: 00 [facility] Semcold - Externa [...] 00 [facility] Semcold - Externa l GERD (gastroeso phageal reflux disease) GERD (gastroeso phageal reflux disease) Disease Active 10-06 00:00: 00 [facility] Semcold - Externa l BPH (benign prostatic hyperplasi a) BPH (benign prostatic hyperplasi a) Disease Active 10-06 00:00: 00 [facility]z Maria Riveraold - Externa l Chronic back pain Chronic back pain Disease Active 10-06 00:00: 00 [facility] Maria Riveraold - Externa l Spondylosi s of lumbar spine Spondylosi s of lumbar spine Disease Active 10-06 00:00: 00 [facility] Maria Ng - Externa l Epigastric pain Epigastric pain Disease Active 10-11 00:00: 00 [facility] SBO (small bowel obstructio n) SBO (small bowel obstructio n) Disease Active 10-30 00:00: 00 [facility] Obesity (BMI 30-39.9) Obesity (BMI 30-39.9) Disease Active 16 00:00: 00 [facility] No known active problems No known active problems Disease [facility] [id number] Bladder mass Problem [facility] [id number] Microscopi c hematuria Problem [facility] [id number] Suprapubic pain Problem [facility] [id number] Lower urinary tract symptoms Problem [facility] Allergies, Adverse Reactions, Alerts Allergy Name Allergy Type Status Severity Reaction(s) Onset Date Inactive Date Treating Clinician Comments Source bee venom protein (honey bee) DA Active SV THROAT SWELL 2022-09 00:00: 00 [facility] Bee Venom Propensi ty to adverse reaction s Active Swelling 10-30 00:00: 00 Luz Maria Ng - Externa l BEE VENOM PROTEIN (HONEY BEE) DRUG INGREDI Active Swelling 10-30 00:00: 00 [facility] No Known Allergie s DA Active U 04-19 00:00: 00 [facility] NO KNOWN ALLERGIE S Drug Class Active [facility] Social History Social Habit [...] (event) 2022-11-28 00:00:00 2022-12-08 23:50:00 Not sure [facility] Tobacco use and exposure 2022-10-11 00:00:00 2022-10-11 00:00:00 Smokeless tobacco non-user [facility] Sex 2022-09-11 16:00:01 2022-09-11 16:00:01 Male (finding) Luz Maria Ng - Lan Sex assigned at 1970 00:00:00 1970 00:00:00 [facility] Monten[place]ro Smoking Status Start Date Stop Date Source Ex-smoker 2024-03-30 00:00:00 2024-03-30 00:00:00 Luz Maria Ng - Lan Occasional tobacco smoker 2023-05-20 00:00:00 Luz Maria Monten[place]ro Never smoked tobacco [facility] Unknown if ever smoked [facility] Medications Ordered Medication Name Filled Medication Name Start Date Stop Date Current Medication? Ordering Clinician Indication Dosage Frequency Signature (SIG) Comments Components Source ketorolac (TORADOL) injection 15 mg 06-08 01:00: 00 06-08 00:42 :00 No 15mg 15 mg, Slow IV Push, ONCE, 1 dose, On Thu06/07/24 at 2000, Routine [facility] HYDROcodone -acetaminop hen (NORCO 5) tablet 1 tablet 06-08 00:15: 00 06-08 00:41 :00 No 1{tbl} 1 tablet, Oral, ONCE, 1 dose, On Thu06/07/24 at 1915, [facility] aspirin chewable tablet 324 mg 06-07 23:30: 00 06-07 22:42 :00 No 324mg 324 mg, Oral, ONCE, 1 dose, On Thu06/07/24 at 1830, Routine [facility] NaCl 0.9% (NS) bolus infusion 1,000 mL 06-07 22:45: 00 06-08 00:45 :00 No 1000mL at 999 mL/hr, 1,000 mL, IV Infusion, ONCE, 1 dose, On Thu06/07/24 at 1745, [facility] nitroglycer in (NITROSTAT) sublingual tablet 0.4 mg 06-07 21:58: 38 Yes .4mg 0.4 mg, Sublingual , Q5MIN PRN, 3 doses, Starting on Thu06/07/24 at 1658, Until Discontinu ed, VASILIY, Chest pain [facility] diclofenac 50 mg tablet 06-07 00:00: 00 06-18 04:59 :00 No [id number] 50mg Take 1 tablet by mouth in the morning and 1 tablet at noon and 1 tablet in the evening. Do all this for 10 days. [facility] acetaminoph en-codeine 300-30 mg tablet 06-07 00:00: 00 06-13 04:59 :00 No [id number] 1{tbl} Take 1 tablet by mouth every 6 (six) hours as needed for Pain (scale 7-10) for up to 5 days. Indication s: acute pain [facility] Lisinopril 10 MG oral Tablet 05-09 00:00: 00 Yes [id number] 10mg QD Take 1 tablet (10 mg total) by mouth daily. [facility] Alprazolam (Xanax) 0.25 MG oral Tablet 04-11 00:00: 00 07-20 00:00 :00 No [id number] 107 Take 1 table 45 mins before MRI and 1 tablet just before MRI. [facility] diphenhydrA MINE:lidoca ine 2% viscous:maa lox 1:1:1 ([facility]) oral suspension 15 mL 04-02 16:30: 00 04-02 15:34 :00 No 15mL 15 mL, Oral (Swish & Swallow), ONCE, 1 dose, On 04/02/24 at 1130, Routine [facility] famotidine (PEPCID (PF)) injection 20 mg 04-02 15:30: 00 04-02 15:34 :00 No 20mg 20 mg, Slow IV Push, ONCE, 1 dose, On 04/02/24 at 1030, VASILIY [facility] NaCl 0.9% (NS) bolus infusion 2,000 mL 04-02 15:15: 00 04-02 17:55 :00 No 2000mL at 999 mL/hr, 2,000 mL, IV Infusion, ONCE, 1 dose, On 04/02/24 at 1015, STAT [facility] ondansetron (ZOFRAN (PF)) injection 4 mg 04-02 15:15: 00 04-02 14:27 :00 No 4mg 4 mg, Slow IV Push, ONCE, 1 dose, On 04/02/24 at 1015, VASILIY [facility] iopamidol (ISOVUE 370-500 mL) injection 90 mL 04-02 14:45: 00 04-02 15:00 :00 No [id number] 90mL 90 mL, Intravenou s, ONCE, 1 dose, On 04/02/24 at 1000, Routine [facility] morpHINE (4 mg/mL) injection 4 mg 04-02 14:15: 00 04-02 14:27 :00 No 4mg 4 mg, Slow IV Push, ONCE, 1 dose, On 04/02/24 at 0915, STAT [facility] Sucralfate 1 g oral Tablet 04-02 00:00: 00 Yes 1g Take 1 tablet (1 g total) by mouth before meals and at bedtime. [facility] Sod Picosulfate -Mag Ox-Cit Acd (Clenpiq) 10-3.5-12 MG-GM -GM/175ML oral Solution 03-30 00:00: 00 Yes [id number] Instructio ns provided to patient. Follow instructio ns provided by provider.. [facility] Omeprazole 40 MG oral Delayed Release Capsule 03-30 00:00: 00 Yes [id number] 40mg QD Take 1 capsule (40 mg total) by mouth daily. [facility] NaCl 0.9% (NS) bolus infusion 1,000 mL 09 03:45: 00 02-20 04:50 :00 No 1000mL at 999 mL/hr, 1,000 mL, IV Infusion, ONCE, 1 dose, On 02/20/24 at 2245, VASILIY [facility] FENTanyl PF (SUBLIMAZE (PF)) injection 50 mcg 02-20 03:00: 00 02-20 03:07 :00 No 50ug 50 mcg, Slow IV Push, ONCE, 1 dose, On 02/20/24 at 2200, Routine [facility] metoclopram jerilyn HCl (REGLAN) injection 10 mg 02-20 03:00: 00 02-20 03:07 :00 No 10mg 10 mg, Slow IV Push, ONCE, 1 dose, On 02/20/24 at 2200, [facility] bisacodyL (DULCOLAX) tablet 5 mg 02-20 03:00: 00 02-20 03:07 :00 No 5mg 5 mg, Oral, ONCE NOW, 1 dose, On 02/20/24 at 2200, Routine [facility] dicyclomine 20 mg tablet 02-19 00:00: 00 Yes [id number] 20mg Take 1 tablet by mouth 4 (four) times daily as needed for Abdominal pain. [facility] Bisacodyl (DULCOLAX) 5 MG oral [...] MG oral Tablet 12-16 00:00: 00 Yes [id number] 10mg QD Take 1 tablet (10 mg total) by mouth nightly as needed for muscle spasms. [facility] HYDROcodone -acetaminop hen (NORCO) 10-325 mg tablet 1 tablet 12-09 04:45: 00 12-09 03:57 :00 No 1{tbl} 1 tablet, Oral, ONCE NOW, 1 dose, On Thu12/09/23 at 2345, Routine [facility] iopamidol (ISOVUE 370-500 mL) injection 100 mL 12-09 03:30: 00 12-09 03:30 :00 No [id number] 100mL 100 mL, Intravenou s, ONCE, 1 dose, On Thu12/09/23 at 2230, Routine [facility] ketorolac (TORADOL) injection 30 mg 12-09 03:00: 00 12-09 02:04 :00 No 30mg 30 mg, Slow IV Push, ONCE, 1 dose, On Thu12/09/23 at 2200, Routine [facility] Methocarbam ol 750 MG oral Tablet 12-09 00:00: 00 12-16 00:00 :00 No 750mg Q.25D Take 1 tablet (750 mg total) by mouth every 6 hours as needed FOR PAIN. [facility] ketorolac 10 mg tablet 12-08 00:00: 00 Yes [id number] 10mg Take 1 tablet by mouth every 6 (six) hours as needed for Pain (scale 7-10). [facility] methocarbam oL 750 mg tablet 12-08 00:00: 00 Yes [id number] 750mg Take 1 tablet by mouth every 6 (six) hours as needed for Pain (scale 7-10) (MUSCLE SPASM). [facility] Ketorolac Tromethamin e (TORADOL IM) 12-05 00:00: 00 12-16 00:00 :00 No [facility] Lisinopril 10 MG oral Tablet 10-06 14:45: 28 10-06 00:00 :00 No 10mg Take 1 tablet (10 mg total) by mouth daily. [facility] Gabapentin 300 MG oral Capsule 10-06 00:00: 00 Yes [id number] 300mg Q.5D Take 1 capsule (300 mg total) by mouth 2 times daily as needed. [facility] Lisinopril 10 MG oral Tablet 10-06 00:00: 00 Yes [id number] 10mg QD Take 1 tablet (10 mg total) by mouth daily. [facility] Pancrelipas e, Lip-Prot-Am yl, (Creon) [address]-[address] units oral Cap DR Particles 10-06 00:00: 00 Yes [id number] 1{capsu le} Take 1 capsule by mouth 3 times daily (with meals). [facility] Amlodipine Besylate 10 MG oral Tablet 10-06 00:00: 00 Yes [id number] 10mg QD Take 1 tablet (10 mg total) by mouth daily. [facility] Famotidine (PEPCID) 20 MG oral tablet 10-06 00:00: 00 Yes [id number] 20mg Q.5D Take 1 tablet (20 mg total) by mouth 2 times daily. [facility] Pantoprazol e Sodium 20 MG oral Tablet Delayed Response 10-06 00:00: 00 03-30 00:00 :00 No [id number] 20mg Take 1 tablet (20 mg total) by mouth every morning. [facility] HYDROcodone -acetaminop hen (NORCO) 10-325 mg tablet 1 tablet 2022-09 06:45: 00 08-04 05:38 :00 No 1{tbl} 1 tablet, Oral, ONCE NOW, 1 dose, On Thu08/04/23 at 0045, [facility] methocarbam oL (ROBAXIN) tablet 1,000 mg 2022-09 05:45: 00 08-04 05:38 :00 No 1000mg 1,000 mg, Oral, ONCE, 1 dose, On Thu08/03/23 at 2345, [facility] FENTanyl PF (SUBLIMAZE (PF)) injection 75 mcg 2022-09 05:00: 00 08-04 04:14 :00 No 75ug 75 mcg, Slow IV Push, ONCE, 1 dose, On Thu08/03/23 at 2300, Routine [facility] NaCl 0.9% (NS) IV infusion 1,000 mL 2022-09 04:45: 00 08-04 05:39 :00 No 1000mL at 999 mL/hr, Intravenou s, ONCE, 1 dose, On Thu08/03/23 at 2245, Routine [facility] methocarbam oL 500 mg tablet 2022-09 00:00: 00 Yes [id number] 500mg Take 1 tablet by mouth every 6 (six) hours as needed (MUSCLE SPASM). [facility] HYDROcodone -acetaminop hen (NORCO) 10-325 mg tablet 2022-09 00:00: 00 08-11 05:59 :00 No [id number] 1{tbl} Take 1 tablet by mouth every 6 (six) hours as needed for Pain (scale 7-10) for up to 7 days. Indication s: acute pain [facility] diphenhydrA MINE (BENADRYL) injection 25 mg 2022-09 19:30: 00 07-25 18:34 :00 No 25mg 25 mg, Slow IV Push, ONCE, 1 dose, On 07/25/23 at 1330, STAT [facility] metoclopram jerilyn HCl (REGLAN) injection 10 mg 2022-09 19:30: 00 07-25 18:34 :00 No 10mg 10 mg, Slow IV Push, ONCE, 1 dose, On 07/25/23 at 1330, VASILIY [facility] morpHINE (4 mg/mL) injection 4 mg 2022-09 17:30: 00 07-25 16:43 :00 No 4mg 4 mg, Slow IV Push, ONCE, 1 dose, On 07/25/23 at 1130, STAT [facility] ondansetron (ZOFRAN (PF)) injection 4 mg 2022-09 17:15: 00 07-25 16:43 :00 No 4mg 4 mg, Slow IV Push, ONCE, 1 dose, On 07/25/23 at 1115, VASILIY [facility] NaCl 0.9% (NS) bolus infusion 1,000 mL 2022-09 17:15: 00 07-25 18:54 :00 No 1000mL at 999 mL/hr, 1,000 mL, IV Infusion, ONCE, 1 dose, On 07/25/23 at 1115, STAT [facility] metoclopram jerilyn HCl 10 mg tablet 2022-09 00:00: 00 Yes [id number] 10mg Take 1 tablet by mouth every 6 (six) hours. [facility] sodium chloride (NS) injection 5 mL 2022-09 19:45: 30 Yes 5mL 5 mL, Intravenou s, PRN, Starting on Thu07/24/23 at 1345, Until Discontinu ed, Routine, IV line flushing [facility] dicyclomine 20 mg tablet 2022-09 00:00: 00 02-19 00:00 :00 No [id number] 20mg Take 1 tablet by mouth 4 (four) times daily as needed for Abdominal pain. [facility] ketorolac (TORADOL) injection 15 mg 2022-09 03:15: 00 07-12 02:32 :00 No 15mg 15 mg, Slow IV Push, ONCE, 1 dose, On 07/11/23 at 2215, Routine [facility] methocarbam oL (ROBAXIN) tablet 1,000 mg 2022-09 02:30: 00 07-12 02:32 :00 No 1000mg 1,000 mg, Oral, ONCE, 1 dose, On 07/11/23 at 2130, VASILIY [facility] famotidine (PEPCID (PF)) injection 20 mg 2022-09 02:30: 00 07-12 02:32 :00 No 20mg 20 mg, Slow IV Push, ONCE, 1 dose, On 07/11/23 at 2130, VASILIY [facility] aspirin chewable tablet 324 mg 2022-09 02:15: 00 07-12 02:31 :00 No 324mg 324 mg, Oral, ONCE, 1 dose, On 07/11/23 at 2115, STAT [facility] HYDROcodone -acetaminop hen 5-325 mg tablet 2022-09 00:00: 00 07-15 04:59 :00 No [id number] 1{tbl} Take 1 tablet by mouth every 4 (four) hours as needed for Pain (scale 7-10) for up to 3 days. Indication s: acute pain [facility] omeprazole 40 mg capsule 2022-09 00:00: 00 Yes [id number] 40mg Take 1 capsule by mouth in the morning and 1 capsule in the evening. [facility] peg-electro lyte soln 236-22.74-6 .74 -5.86 gram solution 2022-09 00:00: 00 Yes [id number] Take as directed before colonoscop y [facility] Lisinopril 10 MG oral Tablet [...] ONCE, 1 dose, On Thu07/03/23 at 0845, [facility] famotidine (PEPCID (PF)) injection 20 mg 2022-09 13:00: 00 07-03 12:49 :00 No 20mg 20 mg, Slow IV Push, ONCE, 1 dose, On Thu07/03/23 at 0800, [facility] iohexol (OMNIPAQUE 350 BULK-100 mL) injection 80 mL 2022-09 10:40: 00 07-03 10:40 :00 No [id number] 80mL 80 mL, Intravenou s, ONCE, 1 dose, On Thu07/03/23 at 0545, Routine [facility] ondansetron (ZOFRAN (PF)) injection 4 mg 2022-09 10:15: 00 07-03 10:20 :00 No 4mg 4 mg, Slow IV Push, ONCE, 1 dose, On Thu07/03/23 at 0515, VASILIY [facility] morpHINE (4 mg/mL) injection 4 mg 2022-09 10:15: 07-03 10:20 :00 No 4mg 4 mg, Slow IV Push, ONCE, 1 dose, On Thu07/03/23 at 0515, STAT [facility] Pantoprazol e Sodium 20 MG [...] 2022-09 00:00: 00 07-10 00:00 :00 No [id number] 20mg Take 1 tablet by mouth in the morning and 1 tablet in the evening. [facility] Lisinopril 10 MG oral Tablet [...] 05-08 03:15: 00 05-08 02:12 :00 No [id number] 80mL 80 mL, Intravenou s, ONCE, 1 dose, On Carrie 05/07/23 at 2215, Routine [facility] morpHINE (4 mg/mL) injection 4 mg 05-08 01:00: 00 05-08 01:38 :00 No 4mg 4 mg, Slow IV Push, ONCE, 1 dose, On Carrie 05/07/23 at 2000, [facility] NaCl 0.9% (NS) bolus infusion 1,000 mL 05-08 01:00: 00 05-08 04:22 :00 No 1000mL at 999 mL/hr, 1,000 mL, IV Infusion, ONCE, 1 dose, On Carrie 05/07/23 at 2000, [facility] NaCl 0.9% (NS) bolus infusion 1,000 mL 05-02 05:15: 00 05-02 05:29 :00 No 1000mL at 999 mL/hr, 1,000 mL, IV Infusion, ONCE, 1 dose, On [facility] 05/02/23 at 0015, [facility] famotidine (PEPCID (PF)) injection 20 mg 05-02 04:15: 00 05-02 04:21 :00 No 20mg 20 mg, Slow IV Push, ONCE, 1 dose, On Thu05/01/23 at 2315, [facility] maalox:diph enhydrAMINE :lidocaine 2 % viscous 1:1:1 ([facility]) oral suspension 15 mL 05-02 04:15: 00 05-02 04:21 :00 No 15mL 15 mL, Oral, ONCE, 1 dose, On Thu05/01/23 at 2315, [facility] ondansetron (ZOFRAN (PF)) injection 4 mg 05-02 04:15: 00 05-02 03:18 :00 No 4mg 4 mg, Slow IV Push, ONCE, 1 dose, On Thu05/01/23 at 2315, [facility] NaCl 0.9% (NS) bolus infusion 1,000 mL 05-02 04:15: 00 05-02 04:15 :00 No 1000mL at 999 mL/hr, 1,000 mL, IV Infusion, ONCE, 1 dose, On Thu05/01/23 at 2315, STAT [facility] metoclopram jerilyn HCl 10 mg tablet 05-01 00:00: 00 Yes [id number] 10mg Take 1 tablet by mouth every 6 (six) hours. [facility] pantoprazol e (PROTONIX) 20 mg EC tablet 05-01 00:00: 00 07-03 00:00 :00 No [id number] 20mg Take 1 tablet by mouth in the morning. [facility] iopamidol (ISOVUE 370-500 mL) injection 70 mL 04-22 16:21: 00 04-22 16:21 :00 No [id number] 70mL 70 mL, Intravenou s, ONCE, 1 dose, On Thu04/22/23 at 1145, Routine [facility] haloperidol lactate (HALDOL) injection 2.5 mg 04-22 16:00: 00 04-22 16:01 :00 No 2.5mg 2.5 mg, Intravenou s, ONCE, 1 dose, On Thu04/22/23 at 1100, STAT [facility] NaCl 0.9% (NS) bolus infusion 500 mL 04-22 14:45: 00 04-22 15:30 :00 No 500mL at 999 mL/hr, 500 mL, IV Infusion, ONCE, 1 dose, On Thu04/22/23 at 0945, STAT [facility] maalox:diph enhydrAMINE :lidocaine 2 % viscous 1:1:1 (FIRST-MOUT [facility]) oral suspension 15 mL 04-22 13:00: 00 04-22 12:55 :00 No 15mL 15 mL, Oral, ONCE, 1 dose, On Thu04/22/23 at 0800, Routine [facility] NaCl 0.9% (NS) IV infusion 1,000 mL 04-22 12:45: 00 Yes 1000mL at 999 mL/hr, Intravenou s, CONTINUOUS , Starting on Thu04/22/23 at 0745, Until Discontinu ed, Routine [facility] NaCl 0.9% (NS) bolus infusion 1,000 mL 04-22 10:30: 00 04-22 11:30 :00 No 1000mL at 999 mL/hr, 1,000 mL, IV Infusion, ONCE, 1 dose, On Thu04/22/23 at 0530, STAT [facility] ketorolac (TORADOL) injection 30 mg 04-22 10:30: 00 04-22 09:21 :00 No 30mg 30 mg, Slow IV Push, ONCE, 1 dose, On Thu04/22/23 at 0530, Routine [facility] diphenhydrA MINE (BENADRYL) injection 25 mg 04-22 09:30: 00 04-22 09:21 :00 No 25mg 25 mg, Slow IV Push, ONCE, 1 dose, On Thu04/22/23 at 0430, STAT [facility] metoclopram jerilyn HCl (REGLAN) injection 10 mg 04-22 09:30: 00 04-22 09:21 :00 No 10mg 10 mg, Slow IV Push, ONCE, 1 dose, On Thu04/22/23 at 0430, VASILIY [facility] NaCl 0.9% (NS) bolus infusion 1,000 mL 04-22 09:15: 00 04-22 10:28 :00 No 1000mL at 999 mL/hr, 1,000 mL, IV Infusion, ONCE, 1 dose, On Thu04/22/23 at 0415, STAT [facility] Tramadol HCl (ULTRAM) 50 MG [...] On Carrie 04/16/23 at 0915, Routine [facility] famotidine (PEPCID (PF)) injection 20 mg 04-16 13:30: 00 04-16 12:33 :00 No 20mg 20 mg, Slow IV Push, ONCE NOW, 1 dose, On Carrie 04/16/23 at 0830, VASILIY [facility] dicyclomine (BENTYL) injection 20 mg 04-16 13:30: 00 04-16 12:34 :00 No 20mg 20 mg, Intramuscu lar, ONCE NOW, 1 dose, On Carrie 04/16/23 at 0830, Routine [facility] enalaprilat (VASOTEC I.V.) injection 1.25 mg 04-16 13:15: 00 04-16 13:17 :00 No 1.25mg 1.25 mg, Slow IV Push, ONCE, 1 dose, On Carrie 04/16/23 at 0815, STAT [facility] lactulose (CEPHULAC) solution 45 mL 04-16 13:15: 00 04-16 13:18 :00 No 45mL 45 mL, Oral, ONCE, 1 dose, On Carrie 04/16/23 at 0815, VASILIY [facility] ketorolac (TORADOL) injection 30 mg 04-16 13:15: 00 04-16 12:32 :00 No 30mg 30 mg, Slow IV Push, ONCE NOW, 1 dose, On Carrie 04/16/23 at 0815, VASILIY [facility] NaCl 0.9% (NS) bolus infusion 1,000 mL 04-16 13:15: 00 04-16 13:54 :00 No 1000mL at 999 mL/hr, 1,000 mL, IV Piggyback, ONCE, 1 dose, On Carrie 04/16/23 at 0815, STAT [facility] lipase-prot ease-amylas e (CREON) 3,000-9,500 - 15,000 unit capsule 04-16 00:00: 00 Yes [id number] 3000U Take 1 capsule by mouth in the morning and 1 capsule at noon and 1 capsule in the evening. Take with meals. [facility] hyoscyamine sulfate (LEVSIN/SL) 0.125 mg sublingual tablet 04-16 00:00: [id number] 2 tablets under the tongue every 6 (six) hours as needed (Abdominal pain or cramping). [facility] bisacodyL 5 mg EC tablet 04-16 00:00: 00 Yes [id number] 5mg Take 1 tablet by mouth once daily as needed for Constipati on. [facility] Famotidine (PEPCID) 20 MG oral tablet 04-16 00:00: 00 10-06 00:00 :00 No 20mg Take 1 tablet (20 mg total) by mouth 2 times daily. Luz Maria Wallace l Lorazepam 1 MG oral Tablet 04-05 00:00: 00 10-06 00:00 :00 No 1mg [id number] 3D Take 1 tablet (1 mg total) by mouth every 8 hours as needed. Luz Maria Ng - Externerwin l iopamidol (ISOVUE 370-500 mL) injection 100 mL 04-01 07:45: 00 04-01 06:58 :00 No [id number] 100mL 100 mL, Intravenou s, ONCE, 1 dose, On Thu04/01/23 at 0245, Routine [facility] famotidine (PEPCID (PF)) injection 20 mg 04-01 05:45: 00 04-01 06:09 :00 No 20mg 20 mg, Slow IV Push, ONCE, 1 dose, [facility] Thu04/01/23 at 0045[facility] F[facility] (SUBLIMAZE (PF)) injection [...] Until Discontinu ed, Routine, IV line flushing [facility] ondansetron 4 mg disintegrat ing tablet 04-01 00:00: 00 Yes [id number] 4mg Take 1 tablet by mouth every 8 (eight) hours as needed for Nausea and Vomiting (N/V). [facility] traMADoL 50 mg tablet 04-01 00:00: 00 04-09 04:59 :00 No [id number] 50mg Take 1 tablet by mouth every 8 (eight) hours as needed for Pain (scale 4-6) for up to 7 days. Indication s: acute pain [facility] predniSONE (DELTASONE) tablet 40 mg 12-09 07:15: 00 12-09 06:33 :00 No 40mg 40 mg, Oral, ONCE, 1 dose, On Thu12/09/22 at 0215, [facility] traMADoL (ULTRAM) tablet 50 mg 12-09 07:15: 12-09 06:33 :00 No 50mg 50 mg, Oral, ONCE, 1 dose, On Thu12/09/22 at 0215, [facility] iopamidol (ISOVUE 370-500 mL) injection 100 mL 12-09 06:15: 00 12-09 06:15 :00 No [id number] 100mL 100 mL, Intravenou s, ONCE, 1 dose, On Thu12/09/22 at 0115, Routine [facility] ketorolac (TORADOL) injection 30 mg 12-09 06:15: 12-09 05:30 :00 No 30mg 30 mg, Slow IV Push, ONCE, 1 dose, On Thu12/09/22 at 0115, [facility] morpHINE (4 mg/mL) injection 4 mg 12-09 06:15: 12-09 05:30 :00 No 4mg 4 mg, Slow IV Push, ONCE, 1 dose, On Thu12/09/22 at 0115, [facility] NaCl 0.9% (NS) bolus infusion 1,000 mL 12-09 06:15: 12-09 06:33 :00 No 1000mL at 999 mL/hr, 1,000 mL, IV Infusion, ONCE, 1 dose, On Thu12/09/22 at 0115, [facility] ondansetron (ZOFRAN (PF)) injection 8 mg 12-09 05:30: 00 12-09 05:30 :00 No 8mg 8 mg, Slow IV Push, ONCE, 1 dose, On Thu12/09/22 at 0030, [facility] traMADoL 50 mg tablet 12-09 00:00: 00 Yes [id number] 50mg Take 1 tablet by mouth every 6 (six) hours as needed (pain). Indication s: acute pain [facility] ondansetron 4 mg tablet 12-09 00:00: 00 Yes [id number] 1-2 tablets every 8 hours as needed for nausea [facility] predniSONE 20 mg tablet 12-09 00:00: 00 12-17 04:59 :00 No [id number] 40mg Take 2 tablets by mouth in the morning for 7 days. [facility] iopamidol (ISOVUE 370-500 mL) injection 100 mL 11-25 06:15: 00 11-25 06:15 :00 No [id number] 100mL 100 mL, Intravenou s, ONCE, 1 dose, On Thu11/25/22 at 0115, Routine [facility] NaCl 0.9% (NS) bolus infusion 1,000 mL 11-25 06:00: 00 11-25 07:00 :00 No 1000mL at 999 mL/hr, 1,000 mL, IV Infusion, ONCE, 1 dose, On Thu11/25/22 at 0100, STAT [facility] FENTanyl PF (SUBLIMAZE (PF)) injection 50 mcg 11-25 05:45: 00 11-25 05:03 :00 No 50ug 50 mcg, Slow IV Push, ONCE, 1 dose, On Thu11/25/22 at 0045, Routine [facility] ondansetron (ZOFRAN (PF)) injection 4 mg 11-25 05:00: 00 11-25 05:04 :00 No 4mg 4 mg, Slow IV Push, ONCE, 1 dose, On Thu11/25/22 at 0000, [facility] Pancrelipas e, Lip-Prot-Am yl, (Creon) 10193-53589 units oral Cap DR Particles 1-30 00:00: 00 10-06 00:00 :00 No Luz Maria Ng - [place] lipase-prot ease-amylas e (CREON) 12,000-38,0 00 -60,000 unit capsule 2 capsule 10-12 23:00: 00 Yes 2{capsu le} 2 capsule, Oral, TID MEALS, First dose on 10/12/22 at 1700, Until Discontinu ed, Routine [facility] lisinopriL 10 mg tablet 10-12 17:56: 15 Yes 10mg Take 10 mg by mouth in the morning. [facility] meloxicam (MOBIC) tablet 7.5 mg 10-12 17:15: 00 Yes 7.5mg 7.5 mg, Oral, DAILY, First dose on 10/12/22 at 1115, Until Discontinu ed, Routine [facility] omeprazole (PRILOSEC) capsule 20 mg 10-12 15:00: 00 Yes 20mg 20 mg, Oral, DAILY, First dose on 10/12/22 at 0900, Until Discontinu ed, Routine [facility] Pantoprazol e Sodium 40 MG oral Tablet Delayed Response 10-12 00:00: 00 10-06 00:00 :00 No Luz Maria rea lipase-prot ease-amylas e 12,000-38,0 00 -60,000 unit capsule 10-12 00:00: 00 01-11 04:59 :00 No [id number] 2{capsu le} Take 2 capsules by mouth in the morning and 2 capsules at noon and 2 capsules in the evening. Take with meals. Do all this for 90 days. Do not crush or chew. [facility] meloxicam 7.5 mg tablet 10-12 00:00: 00 10-27 05:59 :00 No [id number] 7.5mg Take 1 tablet by mouth once daily as needed for Pain (scale 7-10) for up to 14 days. [facility] HYDROcodone -acetaminop hen 5-325 mg tablet 10-12 00:00: 00 10-20 05:59 :00 No [id number] 1{tbl} Take 1 tablet by mouth every 6 (six) hours as needed for Pain (scale 4-6) for up to 7 days. Indication s: acute pain [facility] amLODIPine (NORVASC) tablet 10 mg 10-11 20:00: 00 Yes 10mg 10 mg, Oral, DAILY, First dose on 10/11/22 at 1400, Until Discontinu ed, Routine [facility] lactated ringers IV infusion 1,000 mL 10-11 20:00: 00 10-12 14:03 :28 No 1000mL at 125 mL/hr, 1,000 mL, IV Infusion, CONTINUOUS , Starting on 10/11/22 at 1400, Until 10/12/22 at 0803, Routine [facility] HYDROcodone -acetaminop hen (NORCO 5) 5-325 mg tablet 1 tablet 10-11 19:35: 19 10-13 19:34 :19 No 1{tbl} 1 tablet, Oral, Q6HPRN, Starting on 10/11/22 at 1335, Until 10/13/22 at 1334, Routine, Pain (scale 4-6) [facility] acetaminoph en (TYLENOL) tablet 650 mg 10-11 19:35: 16 Yes 650mg 650 mg, Oral, Q6HPRN, Starting on 10/11/22 at 1335, Until Discontinu ed, Routine, Pain (scale 1-3) [facility] NaCl 0.9% (NS) bolus infusion 1,000 mL 10-11 16:45: 00 10-11 16:02 :00 No 1000mL at 999 mL/hr, 1,000 mL, Intravenou s, ONCE, 1 dose, On 10/11/22 at 1045, STAT [facility] ondansetron (ZOFRAN (PF)) injection 4 mg 10-11 16:15: 00 10-11 16:15 :00 No 4mg 4 mg, Slow IV Push, ONCE, 1 dose, On 10/11/22 at 1015, [facility] morpHINE (4 mg/mL) injection 4 mg 10-11 16:15: 00 10-11 16:14 :00 No 4mg 4 mg, Slow IV Push, ONCE, 1 dose, On 10/11/22 at 1015, STAT [facility] iopamidol (ISOVUE 370-500 mL) injection 120 mL 10-11 15:45: 00 10-11 14:43 :00 No [id number] 120mL 120 mL, Intravenou s, ONCE, 1 dose, On 10/11/22 at 0945, Routine [facility] FENTanyl PF (SUBLIMAZE (PF)) injection 50 mcg 10-09 08:30: 00 10-09 07:23 :00 No 50ug 50 mcg, Slow IV Push, ONCE, 1 dose, On Carrie 10/09/22 at 0230, Routine [facility] iopamidol (ISOVUE 370-500 mL) injection 100 mL 10-09 07:15: 00 10-09 07:15 :00 No [id number] 100mL 100 mL, Intravenou s, ONCE, 1 dose, On Carrie 10/09/22 at 0115, Routine [facility] ketorolac (TORADOL) injection 30 mg 10-09 06:15: 00 10-09 05:25 :00 No 30mg 30 mg, Slow IV Push, ONCE, 1 dose, On Carrie 10/09/22 at 0015, Routine [facility] ondansetron (ZOFRAN) 4 mg tablet 10-09 00:00: 00 Yes [id number] 4mg Take 1 tablet by mouth every 8 (eight) hours as needed for Nausea and Vomiting (N/V). [facility] traMADoL (ULTRAM) 50 mg tablet 10-09 00:00: 00 Yes [id number] 50mg Take 1 tablet by mouth every 6 (six) hours as needed for Pain (scale 7-10). Indication s: acute pain [facility] ketorolac (TORADOL) injection 30 mg 2021-09 2-07 17:15: 00 08-20 16:35 :00 No 30mg 30 mg, Intramuscu lar, ONCE, 1 dose, On Thu08/20/22 at 1115, [facility] Amlodipine Besylate 10 MG oral Tablet 2021-09 00:00: 00 10-06 00:00 :00 No Luz Maria Ng - [place] re[facility] morpHINE (4 mg/mL) injection 4 mg 06-09 13:15: 00 06-09 12:54 :00 No 4mg 4 mg, Slow IV Push, ONCE, 1 dose, On Thu06/09/22 at 0815, [facility] ketorolac (TORADOL) injection 30 mg 06-09 13:15: 00 06-09 12:55 :00 No 30mg 30 mg, Slow IV Push, ONCE, 1 dose, On Thu06/09/22 at 0815, [facility] iop[facility] (ISOVUE 370-500 mL) injection 60 mL 06-09 13:07: 00 06-09 13:08 :00 No [id number] 60mL 60 mL, Intravenou s, ONCE, 1 dose, On Thu06/09/22 at 0815, Routine [facility] ondansetron (ZOFRAN (PF)) injection 4 mg 06-09 12:30: 00 06-09 12:54 :00 No 4mg 4 mg, Slow IV Push, ONCE, 1 dose, On Thu06/09/22 at 0730, [facility] dexamethaso ne sod phos PF injection 10 mg 06-09 12:30: 00 06-09 12:55 :00 No 10mg 10 mg, Slow IV Push, ONCE, 1 dose, On Thu06/09/22 at 0730, 1 mL [facility] traMADoL 50 mg tablet 06-09 00:00: 00 10-11 00:00 :00 No [id number] 50mg Take 1 tablet by mouth every 6 (six) hours as needed (pain). Indication s: acute pain [facility] lidocaine 5 % (700 mg/patch) patch 06-09 00:00: 00 10-11 00:00 :00 No [id number] Apply one patch to most painful area up to 12 hours a day as needed for pain. PHARMACIST : dispense one box [facility] predniSONE 20 mg tablet 06-09 00:00: 00 06-17 04:59 :00 No [id number] 40mg Take 2 tablets by mouth in the morning for 7 days. [facility] Dose Unknown 02-03 00:00: 00 No Dose Unknown 02-03 00:00: 00 No lisinopriL (PRINIVIL,Z ESTRIL) tablet 20 mg 11-01 03:00: 00 Yes 20mg 20 mg, Oral, QHS, First dose (after last modificati on) on Carrie 10/31/21 at 2100, Until Discontinu ed, Routine [facility] lisinopriL 20 mg tablet 11-01 00:00: 00 12-02 04:59 :00 No [id number] 20mg Take 1 tablet by mouth at bedtime for 30 days. [facility] lactated ringers IV infusion 1,000 mL 10-31 19:00: 00 Yes 1000mL at 75 mL/hr, 1,000 mL, IV Infusion, CONTINUOUS , Starting on Carrie 10/31/21 at 1300, Until Discontinu ed, Routine [facility] amLODIPine (NORVASC) tablet 10 mg 10-31 15:00: 00 Yes 10mg 10 mg, Oral, DAILY, First dose on Carrie 10/31/21 at 0900, Until Discontinu ed, Routine [facility] enoxaparin (LOVENOX) injection 40 mg 10-31 15:00: 00 Yes 40mg 40 mg, Subcutaneo us, DAILY, First dose on Carrie 10/31/21 at 0900, Until Discontinu ed, Routine [facility] lactated ringers IV infusion 1,000 mL 10-31 07:00: 00 10-31 18:45 :24 No 1000mL at 150 mL/hr, 1,000 mL, IV Infusion, CONTINUOUS , Starting on Thu10/31/21 at 0100, Until Thu10/31/21 at 1245, Routine [facility] lactated ringers IV infusion 1,000 mL 10-31 01:00: 00 10-31 06:52 :16 No 1000mL at 75 mL/hr, 1,000 mL, IV Infusion, CONTINUOUS , Starting on Thu10/30/21 at 1900, Until Thu10/31/21 at 0052, Routine [facility] morpHINE injection 4 mg 10-31 00:43: 35 11-01 00:42 :35 No 4mg 4 mg, Slow IV Push, Q4HPRN, Starting on Thu10/30/21 at 1843, Until Thu10/31/21 at 1842, Routine, Pain (scale 7-10) [facility] HYDROcodone -acetaminop hen (NORCO 5) 5-325 mg tablet 1 tablet 10-31 00:43: 32 11-02 00:42 :32 No 1{tbl} 1 tablet, Oral, Q6HPRN, Starting on Thu10/30/21 at 1843, Until Thu11/01/21 at 1842, Routine, Pain (scale 4-6) [facility] acetaminoph en (TYLENOL) tablet 650 mg 10-31 00:43: 22 Yes 650mg 650 mg, Oral, Q6HPRN, Starting on Thu10/30/21 at 1843, Until Discontinu ed, Routine, Pain (scale 1-3) [facility] ondansetron (ZOFRAN (PF)) injection 4 mg 10-30 21:15: 00 10-30 20:28 :00 No 4mg 4 mg, Slow IV Push, ONCE, 1 dose, On Thu10/30/21 at 1515, [facility]ILIY [facility] morpHINE injection 4 mg 10-30 21:15: 00 10-30 20:29 :00 No 4mg 4 mg, Slow IV Push, ONCE, 1 dose, On Thu10/30/21 at 1515, STAT [facility] NaCl 0.9% (NS) bolus infusion 1,000 mL 10-30 21:15: 00 10-30 20:29 :00 No 1000mL at 999 mL/hr, 1,000 mL, IV Infusion, ONCE, 1 dose, On Thu10/30/21 at 1515, VASILIY [facility] iopamidol (ISOVUE 370-500 mL) injection 100 mL 10-30 20:37: 00 10-30 20:35 :00 No [id number] 100mL 100 mL, Intravenou s, ONCE, 1 dose, On Thu10/30/21 at 1445, Routine [facility] lisinopril 10 mg tablet 2-03 00:00: 00 No 1mg amlodipine 10 mg tablet 0 2-03 00:00: 00 No 1mg lisinopril 10 mg tablet 2020-09 0-13 00:00: 00 No 1mg amlodipine 10 mg tablet 2020-09 0-13 00:00: 00 No 1mg NaCl 0.9% (NS) bolus infusion 1,000 mL 05-24 03:45: 00 05-24 05:00 :00 No 1000mL at 999 mL/hr, 1,000 mL, IV Piggyback, ONCE, 1 dose, [facility] 05/23/21 at 2245, STAT [facility] NaCl 0.9% (NS) bolus infusion 1,000 mL 05-24 03:00: 00 05-24 03:00 :00 No 1000mL at 999 mL/hr, 1,000 mL, IV Piggyback, ONCE, 1 dose, [facility] 05/23/21 at 2200, STAT [facility] NaCl 0.9% (NS) bolus infusion 500 mL 05-23 03:15: 00 05-23 15:14 :00 No 500mL at 999 mL/hr, 500 mL, IV Piggyback, ONCE, 1 dose, 05/22/21 at 2215, STAT [facility] dexamethaso ne (DECADRON PHOSPHATE) injection 10 mg 04-02 03:30: 00 04-02 02:47 :00 No 10mg 10 mg, Intramuscu lar, ONCE, 1 dose, 04/01/21 at 2230, STAT [facility] ketorolac (TORADOL) injection 60 mg 03-18 04:00: 00 03-18 02:56 :00 No 60mg 60 mg, Intramuscu lar, ONCE, 1 dose, Thu03/17/21 at 2300, VASILIY
Fa culty member approving Restricted medication : EMERGENCY ROOM, [facility] ibuprofen 800 mg tablet 03-17 00:00: 00 05-23 00:00 :00 No [id number] 800mg Take 1 tablet by mouth every 8 (eight) hours as needed for Pain (scale 4-6). [facility] acetaminoph en-codeine 300-30 mg tablet 03-17 00:00: 00 03-25 04:59 :00 No [id number] 1{tbl} Take 1 tablet by mouth every 6 (six) hours as needed for Pain (scale 7-10) for up to 7 days. Indication s: acute pain [facility] benzonatate (TESSALON PERLES) capsule 200 mg -04 05:00: 00 11-15 04:51 :00 No 200mg 200 mg, Oral, ONCE, 1 dose, Thu11/14/20 at 2300, Routine [facility] Dose Unknown 3- 00:00: 00 No Dose Unknown 3- 00:00: 00 No benzonatate 100 mg capsule 3-03 00:00: 00 05-23 00:00 :00 No [id number] 100mg Take 1 capsule by mouth 3 (three) times daily as needed for Cough. [facility] diphenhydrA MINE (BENADRYL) injection 25 mg 09-30 16:00: 00 09-30 15:17 :00 No 25mg 25 mg, Slow IV Push, ONCE, 1 dose, 09/30/20 at 1000, STAT [facility] metoclopram jerilyn HCl (REGLAN) injection 10 mg 09-30 16:00: 00 09-30 15:17 :00 No 10mg 10 mg, Slow IV Push, ONCE, 1 dose, 09/30/20 at 1000, [facility] NaCl 0.9% (NS) bolus infusion 1,000 mL 09-30 15:00: 00 09-30 16:45 :00 No 1000mL at 999 mL/hr, 1,000 mL, IV Infusion, ONCE, 1 dose, 09/30/20 at 0900, [facility] amLODIPine (NORVASC) 10 mg tablet 09-30 00:00: 00 Yes [id number] 10mg Take 1 tablet by mouth daily. [facility] lisinopriL 10 mg tablet 09-30 00:00: 00 11-01 00:00 :00 No [id number] 10mg Take 1 tablet by mouth at bedtime. [facility] Dose Unknown 2019-09 0 00:00: 00 No Dose Unknown 2019-09 00:00: 00 No maalox:diph enhydrAMINE :lidocaine 2 % viscous 1:1:1 ([facility]) oral suspension 15 mL 2019-09 03:30: 00 07-02 03:30 :00 No 15mL 15 mL, Oral, ONCE, 1 dose, 07/01/20 at 2230, [facility] sodium chloride (NS) injection 5 mL 2019-09 03:00: 48 Yes 5mL 5 mL, Intravenou s, PRN, Starting 07/01/20 at 2200, Until Discontinu ed, Routine, IV line flushing [facility] sucralfate 1 gram tablet 2019-09 00:00: 00 07-16 05:59 :00 No [id number] 1g Take 1 tablet by mouth before meals and at bedtime for 14 days. [facility] lisinopril 10 mg tablet 04-12 00:00: 00 No 1mg amlodipine 10 mg tablet 04-12 00:00: 00 No 1mg No known medications No Un ver[facility] Immunizations Ordered Immunization Name Filled Immunization Name Date Status Comments Source SARS-COV-2 COVID-19 PFIZER VACCINE 2021-05-07 00:00:00 Completed [facility] SARS-COV-2 COVID-19 PFIZER VACCINE 2021-05-07 00:00:00 Completed [facility] SARS-COV-2 COVID-19 PFIZER VACCINE 2021-05-07 00:00:00 Completed [facility] SARS-COV-2 COVID-19 PFIZER VACCINE 2021-05-07 00:00:00 Completed [facility] SARS-COV-2 COVID-19 PFIZER VACCINE 2021-05-07 00:00:00 Completed [facility] SARS-COV-2 COVID-19 PFIZER VACCINE 2021-05-07 00:00:00 Completed [facility] SARS-COV-2 COVID-19 PFIZER VACCINE 2021-05-07 00:00:00 Completed [facility] SARS-COV-2 COVID-19 PFIZER VACCINE 2021-05-07 00:00:00 Completed [facility] SARS-COV-2 COVID-19 PFIZER VACCINE 2021-05-07 00:00:00 Completed [facility] SARS-COV-2 COVID-19 PFIZER VACCINE 2021-05-07 00:00:00 Completed [facility] SARS-COV-2 COVID-19 PFIZER VACCINE 2021-05-07 00:00:00 Completed [facility] SARS-COV-2 COVID-19 PFIZER VACCINE 2021-05-07 00:00:00 Completed [facility] SARS-COV-2 COVID-19 PFIZER VACCINE 2021-05-07 00:00:00 Completed [facility] SARS-COV-2 COVID-19 PFIZER VACCINE 2021-05-07 00:00:00 Completed [facility] SARS-COV-2 COVID-19 PFIZER VACCINE 2021-05-07 00:00:00 Completed [facility] SARS-COV-2 COVID-19 PFIZER VACCINE 2021-05-07 00:00:00 Completed [facility] SARS-COV-2 COVID-19 PFIZER VACCINE 2021-05-07 00:00:00 Completed [facility] SARS-COV-2 COVID-19 PFIZER VACCINE 2021-05-07 00:00:00 Completed [facility] SARS-COV-2 COVID-19 PFIZER VACCINE 2021-05-07 00:00:00 Completed [facility] SARS-COV-2 COVID-19 PFIZER VACCINE 2021-05-07 00:00:00 Completed [facility] SARS-COV-2 COVID-19 PFIZER VACCINE 2021-05-07 00:00:00 Completed [facility] SARS-COV-2 COVID-19 PFIZER VACCINE 2021-05-07 00:00:00 Completed [facility] SARS-COV-2 COVID-19 PFIZER VACCINE Unknown Completed [facility] SARS-COV-2 COVID-19 PFIZER VACCINE Unknown Completed [facility] SARS-COV-2 COVID-19 PFIZER VACCINE Unknown Completed [facility] SARS-COV-2 COVID-19 PFIZER VACCINE Unknown Completed [facility] SARS-COV-2 COVID-19 PFIZER VACCINE Unknown Completed [facility] SARS-COV-2 COVID-19 PFIZER VACCINE Unknown Completed [facility] SARS-COV-2 COVID-19 PFIZER VACCINE Unknown Completed [facility] SARS-COV-2 COVID-19 PFIZER VACCINE Unknown Completed [facility] SARS-COV-2 COVID-19 PFIZER VACCINE Unknown Completed [facility] SARS-COV-2 COVID-19 PFIZER VACCINE Unknown Completed [facility] SARS-COV-2 COVID-19 PFIZER VACCINE Unknown Completed [facility] SARS-COV-2 COVID-19 PFIZER VACCINE Unknown Completed [facility] SARS-COV-2 COVID-19 PFIZER VACCINE Unknown Completed [facility] SARS-COV-2 COVID-19 PFIZER VACCINE Unknown Completed [facility] SARS-COV-2 COVID-19 PFIZER VACCINE Unknown Completed [facility] SARS-COV-2 COVID-19 PFIZER VACCINE Unknown Completed [facility] SARS-COV-2 COVID-19 PFIZER VACCINE Unknown Completed [facility] SARS-COV-2 COVID-19 PFIZER VACCINE Unknown Completed [facility] SARS-COV-2 COVID-19 PFIZER VACCINE Unknown Completed [facility] SARS-COV-2 COVID-19 PFIZER VACCINE Unknown Completed [facility] SARS-COV-2 COVID-19 PFIZER VACCINE Unknown Completed [facility] Vital Signs Vital Name Observation Time Observation Value Comments S ource Heart rate 2024-06-08 00:59:00 80 /min [facility] Respiratory rate 2024-06-08 00:59:00 15 /min [facility] Oxygen saturation in Arterial blood by Pulse oximetry 2024-06-08 00:59:00 97 /min [facility] Systolic blood pressure 2024-06-08 00:30:00 149 mm[Hg] [facility] Diastolic blood pressure 2024-06-08 00:30:00 98 mm[Hg] [facility] Body temperature 2024-06-07 21:55:00 36.5 Cindi [facility] Body height 2024-06-07 21:55:00 195.6 cm [facility] Body weight 2024-06-07 21:55:00 121.11 kg [facility] BMI 2024-06-07 21:55:00 31.66 kg/m2 [facility] Systolic blood pressure 2024-04-08 21:13:00 143 mm[Hg] Luz Maria Seybo ld - External Diastolic blood pressure 2024-04-08 [...] Systolic blood pressure 2024-04-02 17:52:00 140 mm[Hg] [facility] Diastolic blood pressure 2024-04-02 17:52:00 93 mm[Hg] [facility] Heart rate 2024-04-02 17:52:00 80 /min [facility] Body temperature 2024-04-02 17:52:00 37 Cindi [facility] Respiratory rate 2024-04-02 17:52:00 20 /min [facility] Oxygen saturation in Arterial blood by Pulse oximetry 2024-04-02 17:52:00 98 /min [facility] Body height 2024-04-02 13:32:00 195.6 cm [...] Systolic blood pressure 2024-02-21 04:48:00 132 mm[Hg] [facility] Diastolic blood pressure 2024-02-21 04:48:00 82 mm[Hg] [facility] Heart rate 2024-02-21 04:48:00 74 /min [facility] Body temperature 2024-02-21 04:48:00 36.72 Cindi [facility] Respiratory rate 2024-02-21 04:48:00 15 /min [facility] Oxygen saturation in Arterial blood by Pulse oximetry 2024-02-21 04:48:00 98 /min [facility] Body height 2024-02-21 02:43:00 195.6 cm [facility] Body weight 2024-02-21 02:43:00 115.667 kg [facility] BMI 2024-02-21 02:43:00 30.24 kg/m2 [facility] Systolic blood pressure 2023-12-17 20:32:00 112 mm[Hg] Luz Maria Ingramybo ld - External Diastolic blood pressure 2023-12-17 20:32:00 80 mm[Hg] Luz Maria Ingramybo ld - External Heart rate 2023-12-17 20:07:00 96 /min Manoj y ybold - External Body temperature 2023-12-17 20:07:00 36.44 [...] Systolic blood pressure 2023-12-10 03:57:00 157 mm[Hg] [facility] Diastolic blood pressure 2023-12-10 03:57:00 83 mm[Hg] [facility] Heart rate 2023-12-10 03:57:00 70 /min [facility] Respiratory rate 2023-12-10 03:57:00 16 /min [facility] Oxygen saturation in Arterial blood by Pulse oximetry 2023-12-10 03:57:00 99 /min [facility] Body temperature 2023-12-10 01:12:00 36.83 Cindi [facility] Body height 2023-12-10 01:12:00 195.6 cm [facility] 2023-12-10 01:12:00 122.471 kg Box [...] Systolic blood pressure 2023-08-04 05:38:00 164 mm[Hg] [facility] Diastolic blood pressure 2023-08-04 05:38:00 99 mm[Hg] [facility] Heart rate 2023-08-04 05:38:00 70 /min [facility] Body temperature 2023-08-04 05:38:00 37 Cindi [facility] Respiratory rate 2023-08-04 05:38:00 18 /min [facility] Oxygen saturation in Arterial blood by Pulse oximetry 2023-08-04 05:38:00 98 /min [facility] Body height 2023-08-04 02:22:00 195.6 cm [facility] Body weight 2023-08-04 02:22:00 118.389 kg [facility] BMI 2023-08-04 02:22:00 30.95 kg/m2 [facility] Systolic blood pressure 2023-07-25 18:00:00 146 mm[Hg] [facility] Diastolic blood pressure 2023-07-25 18:00:00 90 mm[Hg] [facility] Heart rate 2023-07-25 18:00:00 75 /min [facility] Respiratory rate 2023-07-25 18:00:00 18 /min [facility] Oxygen saturation in Arterial blood by Pulse oximetry 2023-07-25 18:00:00 95 /min [facility] Body temperature 2023-07-25 15:57:00 37.61 Cindi [facility] Body height 2023-07-25 15:57:00 195.6 cm [facility] Body weight 2023-07-25 15:57:00 118.842 kg [facility] BMI 2023-07-25 15:57:00 31.07 kg/m2 [facility] Systolic blood pressure 2023-07-24 21:05:00 140 mm[Hg] [facility] Diastolic blood pressure 2023-07-24 21:05:00 94 mm[Hg] [facility] Heart rate 2023-07-24 21:05:00 71 /min [facility] Body temperature 2023-07-24 21:05:00 36.67 Cindi [facility] Respiratory rate 2023-07-24 21:05:00 18 /min [facility] Oxygen saturation in Arterial blood by Pulse oximetry 2023-07-24 21:05:00 97 /min [facility] Body weight 2023-07-24 18:35:00 115.667 kg [facility] BMI 2023-07-24 18:35:00 30.24 kg/m2 [facility] Systolic blood pressure 2023-07-12 03:30:00 156 mm[Hg] [facility] Diastolic blood pressure 2023-07-12 03:30:00 101 mm[Hg] [facility] Heart rate 2023-07-12 03:30:00 90 /min [facility] Respiratory rate 2023-07-12 03:30:00 20 /min [facility] Oxygen saturation in Arterial blood by Pulse oximetry 2023-07-12 03:30:00 94 /min [facility] Body temperature 2023-07-12 01:57:00 36.67 Cindi [facility] Body weight 2023-07-12 01:57:00 115.667 kg [facility] BMI 2023-07-12 01:57:00 30.24 kg/m2 [facility] Systolic blood pressure 2023-07-10 13:34:00 140 mm[Hg] [facility] Diastolic blood pressure 2023-07-10 13:34:00 95 mm[Hg] [facility] Heart rate 2023-07-10 13:34:00 76 /min [facility] Body temperature 2023-07-10 13:34:00 35.94 Cindi [facility] Body height 2023-07-10 13:34:00 195.6 cm [facility] Body weight 2023-07-10 13:34:00 118.298 kg [facility] BMI 2023-07-10 13:34:00 30.93 kg/m2 [facility] Oxygen saturation in Arterial blood by Pulse oximetry 2023-07-10 13:34:00 97 /min [facility] Systolic blood pressure 2023-07-08 13:43:00 140 mm[Hg] Luz Maria walden - External Diastolic blood pressure 2023-07-08 13:43:00 100 mm[Hg] Luz Maria walden - External Heart rate 2023-07-08 13:43:00 68 [...] Systolic blood pressure 2023-07-03 12:45:10 149 mm[Hg] [facility] Diastolic blood pressure 2023-07-03 12:45:10 88 mm[Hg] [facility] Heart rate 2023-07-03 12:45:10 88 /min [facility] Respiratory rate 2023-07-03 12:45:10 16 /min [facility] Oxygen saturation in Arterial blood by Pulse oximetry 2023-07-03 12:45:10 97 /min [facility] Body temperature 2023-07-03 09:47:00 36.78 Cindi [facility] Body height 2023-07-03 09:47:00 195.6 cm Box [...] External BMI 2023-05-20 20:08:00 30.36 kg/m2 Kelsi Riveraold - External Systolic blood pressure 2023-05-08 03:30:00 133 mm[Hg] [facility] Diastolic blood pressure 2023-05-08 03:30:00 87 mm[Hg] [facility] Heart rate 2023-05-08 03:30:00 70 /min [facility] Respiratory rate 2023-05-08 03:30:00 18 /min [facility] Oxygen saturation in Arterial blood by Pulse oximetry 2023-05-08 03:30:00 97 /min [facility] Body temperature 2023-05-07 22:36:00 36.72 Cindi [facility] Body weight 2023-05-07 22:36:00 113.853 kg [facility] BMI 2023-05-07 22:36:00 30.55 kg/m2 [facility] Systolic blood pressure 2023-05-02 05:00:00 134 mm[Hg] [facility] Diastolic blood pressure 2023-05-02 05:00:00 85 mm[Hg] [facility] Heart rate 2023-05-02 05:00:00 72 /min [facility] Oxygen saturation in Arterial blood by Pulse oximetry 2023-05-02 05:00:00 98 /min [facility] Body temperature 2023-05-02 02:28:00 37.28 Cindi [facility] Respiratory rate 2023-05-02 02:28:00 20 /min [facility] Body height 2023-05-02 02:28:00 193 cm [facility] Body weight 2023-05-02 02:28:00 113.399 kg [facility] BMI 2023-05-02 02:28:00 30.43 kg/m2 [facility] Systolic blood pressure 2023-04-22 18:02:36 130 mm[Hg] [facility] Diastolic blood pressure 2023-04-22 18:02:36 80 mm[Hg] [facility] Heart rate 2023-04-22 18:02:36 68 /min [facility] Body temperature 2023-04-22 18:02:36 36.78 Cindi [facility] Respiratory rate 2023-04-22 18:02:36 17 /min [facility] Oxygen saturation in Arterial blood by Pulse oximetry 2023-04-22 18:02:36 96 /min [facility] Body height 2023-04-22 08:58:00 195.6 cm [facility] Body weight 2023-04-22 08:58:00 113.944 kg [facility] BMI 2023-04-22 08:58:00 29.79 kg/m2 [facility] Systolic blood pressure 2023-04-16 13:30:00 142 mm[Hg] [facility] Diastolic blood pressure 2023-04-16 13:30:00 98 mm[Hg] [facility] Heart rate 2023-04-16 13:30:00 65 /min [facility] Respiratory rate 2023-04-16 13:30:00 17 /min [facility] Oxygen saturation in Arterial blood by Pulse oximetry 2023-04-16 13:30:00 98 /min [facility] Systolic blood pressure 2023-04-16 12:32:00 155 mm[Hg] [facility] Diastolic blood pressure 2023-04-16 12:32:00 108 mm[Hg] [facility] Heart rate 2023-04-16 12:32:00 61 /min [facility] Respiratory rate 2023-04-16 12:32:00 18 /min [facility] Oxygen saturation in Arterial blood by Pulse oximetry 2023-04-16 12:32:00 97 /min [facility] Body temperature 2023-04-16 12:09:00 36.72 Cindi [facility] Body weight 2023-04-16 12:09:00 118.842 kg [facility] BMI 2023-04-16 12:09:00 31.89 kg/m2 [facility] Systolic blood pressure 2023-04-01 08:00:00 130 mm[Hg] [facility] Diastolic blood pressure 2023-04-01 08:00:00 75 mm[Hg] [facility] Heart rate 2023-04-01 08:00:00 75 /min [facility] Respiratory rate 2023-04-01 08:00:00 19 /min [facility] Oxygen saturation in Arterial blood by Pulse oximetry 2023-04-01 08:00:00 96 /min [facility] Body temperature 2023-04-01 05:02:00 36.28 Cindi [facility] Body height 2023-04-01 05:02:00 193 cm [facility] Body weight 2023-04-01 05:02:00 111.585 kg [facility] BMI 2023-04-01 05:02:00 29.94 kg/m2 [facility] Systolic blood pressure 2023-02-13 21:00:00 157 mm[Hg] [facility] Diastolic blood pressure 2023-02-13 21:00:00 89 mm[Hg] [facility] Heart rate 2023-02-13 21:00:00 102 /min [facility] Body temperature 2023-02-13 21:00:00 37.89 Cindi [facility] Respiratory rate 2023-02-13 21:00:00 16 /min [facility] Body weight 2023-02-13 21:00:00 124.286 kg [facility] BMI 2023-02-13 21:00:00 33.35 kg/m2 [facility] Oxygen saturation in Arterial blood by Pulse oximetry 2023-02-13 21:00:00 97 /min [facility] Systolic blood pressure 2022-12-09 06:33:00 152 mm[Hg] [facility] Diastolic blood pressure 2022-12-09 06:33:00 96 mm[Hg] [facility] Heart rate 2022-12-09 06:33:00 60 /min [facility] Respiratory rate 2022-12-09 06:33:00 11 /min [facility] Oxygen saturation in Arterial blood by Pulse oximetry 2022-12-09 06:33:00 96 /min [facility] Body temperature 2022-12-09 04:51:00 37 Cindi [facility] Body height 2022-12-09 04:51:00 193 cm [facility] Body weight 2022-12-09 04:51:00 116.121 kg [facility] BMI 2022-12-09 04:51:00 31.16 kg/m2 [facility] Systolic blood pressure 2022-11-25 04:51:00 148 mm[Hg] [facility] Diastolic blood pressure 2022-11-25 04:51:00 96 mm[Hg] [facility] Heart rate 2022-11-25 04:51:00 71 /min [facility] Body temperature 2022-11-25 04:51:00 37 Cindi [facility] Respiratory rate 2022-11-25 04:51:00 16 /min [facility] Body height 2022-11-25 04:51:00 193 cm [facility] Body weight 2022-11-25 04:51:00 113.399 kg [facility] BMI 2022-11-25 04:51:00 30.43 kg/m2 [facility] Oxygen saturation in Arterial blood by Pulse oximetry 2022-11-25 04:51:00 97 /min [facility] Systolic blood pressure 2022-10-12 21:48:00 152 mm[Hg] [facility] Diastolic blood pressure 2022-10-12 21:48:00 82 mm[Hg] [facility] Heart rate 2022-10-12 21:48:00 70 /min [facility] Body temperature 2022-10-12 21:48:00 36.89 Cindi [facility] Respiratory rate 2022-10-12 21:48:00 18 /min [facility] Oxygen saturation in Arterial blood by Pulse oximetry 2022-10-12 21:48:00 94 /min [facility] Body height 2022-10-11 17:50:00 193 cm [facility] Body weight 2022-10-11 17:50:00 113.399 kg [facility] BMI 2022-10-11 17:50:00 30.43 kg/m2 [facility] Systolic blood pressure 2022-10-09 07:25:23 138 mm[Hg] [facility] Diastolic blood pressure 2022-10-09 07:25:23 86 mm[Hg] [facility] Heart rate 2022-10-09 07:25:23 73 /min [facility] Respiratory rate 2022-10-09 07:25:23 20 /min [facility] Oxygen saturation in Arterial blood by Pulse oximetry 2022-10-09 07:25:23 98 /min [facility] Body temperature 2022-10-09 04:12:00 37.28 Cindi [facility] Body height 2022-10-09 04:12:00 193 cm [facility] Body weight 2022-10-09 04:12:00 113.399 kg [facility] BMI 2022-10-09 04:12:00 30.43 kg/m2 [facility] Systolic blood pressure 2022-08-20 14:40:00 147 mm[Hg] [facility] Diastolic blood pressure 2022-08-20 14:40:00 95 mm[Hg] [facility] Heart rate 2022-08-20 14:40:00 75 /min [facility] Body temperature 2022-08-20 14:40:00 36.89 Cindi [facility] Respiratory rate 2022-08-20 14:40:00 20 /min [facility] Body height 2022-08-20 14:40:00 190.5 cm [facility] Body weight 2022-08-20 14:40:00 115.667 kg [facility] BMI 2022-08-20 14:40:00 31.87 kg/m2 [facility] Oxygen saturation in Arterial blood by Pulse oximetry 2022-08-20 14:40:00 98 /min [facility] height 2022-07-11 09:30:00 77 [in_i] [facility] weight 2022-07-11 09:30:00 253.6 [lb_av] [facility] temperature 2022-07-11 09:30:00 98.3 [degF] [facility] bmi 2022-07-11 09:30:00 30.07 kg/m2 [facility] oximetry 2022-07-11 09:30:00 99 % [facility] respiratory rate 2022-07-11 09:30:00 18 /min [facility] blood pressure systolic 2022-07-11 09:30:00 135 mm[Hg] [facility] blood pressure diastolic 2022-07-11 09:30:00 81 mm[Hg] [facility] Systolic blood pressure 2022-06-09 15:00:00 141 mm[Hg] [facility] Diastolic blood pressure 2022-06-09 15:00:00 94 mm[Hg] [facility] Heart rate 2022-06-09 15:00:00 59 /min [facility] Respiratory rate 2022-06-09 15:00:00 16 /min [facility] Oxygen saturation in Arterial blood by Pulse oximetry 2022-06-09 15:00:00 97 /min [facility] Body temperature 2022-06-09 11:56:00 36.17 Cindi [facility] Body height 2022-06-09 11:56:00 195.6 cm [facility] Body weight 2022-06-09 11:56:00 127.007 kg [facility] BMI 2022-06-09 11:56:00 33.20 kg/m2 [facility] Systolic blood pressure 2021-11-01 17:12:00 152 mm[Hg] [facility] Diastolic blood pressure 2021-11-01 17:12:00 89 mm[Hg] [facility] Heart rate 2021-11-01 17:12:00 72 /min [facility] Body temperature 2021-11-01 17:12:00 36.17 Cindi [facility] Respiratory rate 2021-11-01 17:12:00 18 /min [facility] Oxygen saturation in Arterial blood by Pulse oximetry 2021-11-01 17:12:00 94 /min [facility] Body height 2021-10-30 23:19:00 195.6 cm [facility] Body weight 2021-10-30 23:19:00 116.983 kg [facility] BMI 2021-10-30 23:19:00 30.58 kg/m2 [facility] Systolic blood pressure 2021-05-24 06:00:00 135 mm[Hg] [facility] Diastolic blood pressure 2021-05-24 06:00:00 97 mm[Hg] [facility] Heart rate 2021-05-24 06:00:00 88 /min [facility] Respiratory rate 2021-05-24 06:00:00 21 /min [facility] Oxygen saturation in Arterial blood by Pulse oximetry 2021-05-24 06:00:00 94 /min [facility] Body temperature 2021-05-24 01:47:00 37.28 Cindi [facility] Body height 2021-05-24 01:47:00 195.6 cm [facility] Body weight 2021-05-24 01:47:00 127.461 kg [facility] BMI 2021-05-24 01:47:00 33.32 kg/m2 [facility] Systolic blood pressure 2021-05-22 23:36:00 154 mm[Hg] [facility] Diastolic blood pressure 2021-05-22 23:36:00 112 mm[Hg] [facility] Heart rate 2021-05-22 23:36:00 97 /min [facility] Body temperature 2021-05-22 23:36:00 36 Cindi [facility] Respiratory rate 2021-05-22 23:36:00 19 /min [facility] Body height 2021-05-22 23:36:00 195.6 cm [facility] Body weight 2021-05-22 23:36:00 127.007 kg [facility] BMI 2021-05-22 23:36:00 33.20 kg/m2 [facility] Oxygen saturation in Arterial blood by Pulse oximetry 2021-05-22 23:36:00 96 /min [facility] Systolic blood pressure 2021-05-02 00:01:00 157 mm[Hg] [facility] Diastolic blood pressure 2021-05-02 00:01:00 93 mm[Hg] [facility] Heart rate 2021-05-02 00:01:00 84 /min [facility] Body temperature 2021-05-02 00:01:00 36.56 Cindi [facility] Respiratory rate 2021-05-02 00:01:00 18 /min [facility] Body weight 2021-05-02 00:01:00 126.554 kg [facility] BMI 2021-05-02 00:01:00 33.08 kg/m2 [facility] Oxygen saturation in Arterial blood by Pulse oximetry 2021-05-02 00:01:00 97 /min [facility] Systolic blood pressure 2021-04-02 01:01:00 144 mm[Hg] [facility] Diastolic blood pressure 2021-04-02 01:01:00 94 mm[Hg] [facility] Heart rate 2021-04-02 01:01:00 89 /min [facility] Body temperature 2021-04-02 01:01:00 37.06 Cindi [facility] Respiratory rate 2021-04-02 01:01:00 18 /min [facility] Body weight 2021-04-02 01:01:00 129.729 kg [facility] BMI 2021-04-02 01:01:00 33.91 kg/m2 [facility] Oxygen saturation in Arterial blood by Pulse oximetry 2021-04-02 01:01:00 100 /min [facility] Systolic blood pressure 2021-04-02 01:01:00 144 mm[Hg] [facility] Diastolic blood pressure 2021-04-02 01:01:00 94 mm[Hg] [facility] Heart rate 2021-04-02 01:01:00 89 /min [facility] Body temperature 2021-04-02 01:01:00 37.06 Cindi [facility] Respiratory rate 2021-04-02 01:01:00 18 /min [facility] Body weight 2021-04-02 01:01:00 129.729 kg [facility] BMI 2021-04-02 01:01:00 33.91 kg/m2 [facility] Oxygen saturation in Arterial blood by Pulse oximetry 2021-04-02 01:01:00 100 /min [facility] Systolic blood pressure 2021-03-18 03:16:13 140 mm[Hg] [facility] Diastolic blood pressure 2021-03-18 03:16:13 80 mm[Hg] [facility] Heart rate 2021-03-18 03:16:13 80 /min [facility] Body temperature 2021-03-18 03:16:13 36.67 Cindi [facility] Respiratory rate 2021-03-18 03:16:13 19 /min [facility] Oxygen saturation in Arterial blood by Pulse oximetry 2021-03-18 03:16:13 99 /min [facility] Body weight 2021-03-18 01:02:00 129.729 kg [facility] BMI 2021-03-18 01:02:00 33.91 kg/m2 [facility] Systolic blood pressure 2021-03-18 03:16:13 140 mm[Hg] [facility] Diastolic blood pressure 2021-03-18 03:16:13 80 mm[Hg] [facility] Heart rate 2021-03-18 03:16:13 80 /min [facility] Body temperature 2021-03-18 03:16:13 36.67 Cindi [facility] Respiratory rate 2021-03-18 03:16:13 19 /min [facility] Oxygen saturation in Arterial blood by Pulse oximetry 2021-03-18 03:16:13 99 /min [facility] Body weight 2021-03-18 01:02:00 129.729 kg [facility] BMI 2021-03-18 01:02:00 33.91 kg/m2 [facility] Oxygen saturation in Arterial blood by Pulse oximetry 2020-11-15 04:31:00 97 /min [facility] Systolic blood pressure 2020-11-15 03:25:00 173 mm[Hg] [facility] Diastolic blood pressure 2020-11-15 03:25:00 97 mm[Hg] [facility] Heart rate 2020-11-15 03:25:00 84 /min [facility] Body temperature 2020-11-15 03:25:00 36.67 Cindi [facility] Respiratory rate 2020-11-15 03:25:00 20 /min [facility] Body weight 2020-11-15 03:25:00 132.45 kg [facility] BMI 2020-11-15 03:25:00 34.63 kg/m2 [facility] Oxygen saturation in Arterial blood by Pulse oximetry 2020-11-15 04:31:00 97 /min [facility] Systolic blood pressure 2020-11-15 03:25:00 173 mm[Hg] [facility] Diastolic blood pressure 2020-11-15 03:25:00 97 mm[Hg] [facility] Heart rate 2020-11-15 03:25:00 84 /min [facility] Body temperature 2020-11-15 03:25:00 36.67 Cindi [facility] Respiratory rate 2020-11-15 03:25:00 20 /min [facility] Body weight 2020-11-15 03:25:00 132.45 kg [facility] BMI 2020-11-15 03:25:00 34.63 kg/m2 [facility] Systolic blood pressure 2020-09-30 16:30:00 121 mm[Hg] [facility] Diastolic blood pressure 2020-09-30 16:30:00 66 mm[Hg] [facility] Heart rate 2020-09-30 16:30:00 72 /min [facility] Respiratory rate 2020-09-30 16:30:00 19 /min [facility] Oxygen saturation in Arterial blood by Pulse oximetry 2020-09-30 16:30:00 94 /min [facility] Body weight 2020-09-30 14:20:00 136.079 kg [facility] BMI 2020-09-30 14:20:00 35.57 kg/m2 [facility] Body temperature 2020-09-30 14:10:00 37.06 Cindi [facility] Systolic blood pressure 2020-09-30 16:30:00 121 mm[Hg] [facility] Diastolic blood pressure 2020-09-30 16:30:00 66 mm[Hg] [facility] Heart rate 2020-09-30 16:30:00 72 /min [facility] Respiratory rate 2020-09-30 16:30:00 19 /min [facility] Oxygen saturation in Arterial blood by Pulse oximetry 2020-09-30 16:30:00 94 /min [facility] Body weight 2020-09-30 14:20:00 136.079 kg [facility] BMI 2020-09-30 14:20:00 35.57 kg/m2 [facility] Body temperature 2020-09-30 14:10:00 37.06 Cindi [facility] Systolic blood pressure 2020-07-02 04:00:00 132 mm[Hg] [facility] Diastolic blood pressure 2020-07-02 04:00:00 84 mm[Hg] [facility] Heart rate 2020-07-02 04:00:00 89 /min [facility] Oxygen saturation in Arterial blood by Pulse oximetry 2020-07-02 04:00:00 95 /min [facility] Body temperature 2020-07-02 02:53:00 36.94 Cindi [facility] Respiratory rate 2020-07-02 02:53:00 18 /min [facility] Body height 2020-07-02 02:53:00 195.6 cm [facility] Body weight 2020-07-02 02:53:00 136.079 kg [facility] BMI 2020-07-02 02:53:00 35.57 kg/m2 [facility] Systolic blood pressure 2020-07-02 04:00:00 132 mm[Hg] [facility] Diastolic blood pressure 2020-07-02 04:00:00 84 mm[Hg] [facility] Heart rate 2020-07-02 04:00:00 89 /min [facility] Oxygen saturation in Arterial blood by Pulse oximetry 2020-07-02 04:00:00 95 /min [facility] Body temperature 2020-07-02 02:53:00 36.94 Cindi [facility] Respiratory rate 2020-07-02 02:53:00 18 /min [facility] Body height 2020-07-02 02:53:00 195.6 cm Box [...] Source EKG-12 LEAD 2024-06-08 00:53:38 Luke Clarke [facility] XR CHEST 2 VW 2024-06-07 22:33:08 Mayte Clarkeshua [facility] CREATINE KINASE 2024-06-07 22:26:00 Luke Clarke [facility] LIPASE 2024-06-07 22:26:00 Luke Clarke [facility] MAGNESIUM 2024-06-07 22:26:00 Luke Clarke [facility] TROPONIN I 2024-06-07 22:26:00 Luke Clarke [facility] COMP. METABOLIC PANEL ([id number]) 2024-06-07 22:26:00 Luke Clarke [facility] CBC WITH DIFF 2024-06-07 22:26:00 Luke Clarke [facility] D-DIMER 2024-06-07 22:26:00 Luke Clarke [facility] INFLUENZA A/B RSV COVID NAAT 2024-06-07 22:26:00 Mayte Clarkeshua [facility] N-TERMINAL PRO-BNP 2024-06-07 22:26:00 Luke Clarke [facility] CT ABDOMEN PELVIS W CONTRAST 2024-04-02 14:49:11 Trevor Taylor [facility] URINALYSIS 2024-04-02 14:18:00 [facility] LIPASE 2024-04-02 14:12:00 [facility] MAGNESIUM 2024-04-02 14:12:00 [facility] TROPONIN I 2024-04-02 14:12:00 Trevor Taylor [facility] COMP. METABOLIC PANEL ([id number]) 2024-04-02 14:12:00 Trevor Taylor Tiffanie [facility] LIPID PANEL ([id number])(TOTAL CHOLESTEROL, TRIGLYCERIDES, HDL) 2024-04-02 14:12:00 Trevor Taylor Tiffanie [facility] CBC WITH DIFF 2024-04-02 14:12:00 Trevor Taylor [facility] LIPASE 2024-02-21 03:08:00 Leti Rivas [facility] [facility] METABOLIC PANEL ([id number]) 2024-02-21 03:08:00 Leti Rivas [facility] CBC WITH DIFF 2024-02-21 03:08:00 [facility]i [facility] URINALYSIS 2024-02-21 03:08:00 Leti Rivas [facility] CT ABDOMEN PELVIS W CONTRAST 2023-12-10 02:36:24 Abraham Orantes [facility] COMP. METABOLIC PANEL ([id number]) 2023-12-10 02:05:00 Abraham Orantes [facility] CBC WITH DIFF 2023-12-10 02:05:00 [facility] URINALYSIS 2023-12-10 02:05:00 Abraham Orantes [facility] CT ABDOMEN PELVIS WO CONTRAST 2023-08-04 04:23:15 Abraham Orantes [facility] BASIC METABOLIC PANEL (NA, K, CL, CO2, GLUCOSE, BUN, CREATININE, CA) 2023-08-04 02:57:00 Abraham Orantes [facility] CBC WITH DIFF 2023-08-04 02:57:00 [facility] URINALYSIS 2023-08-04 02:57:00 Abraham Orantes [facility] NOTICE OF PRIVACY PRACTICES 2023-08-04 02:16:09 Doctor Unassigned, [place] [facility] CONSENT/REFUSAL FOR DIAGNOSIS AND TREATMENT 2023-08-04 02:15:41 Doctor Unassigned, [place] [facility] LIPASE 2023-07-25 16:37:00 Trevor Taylor [facility] MAGNESIUM 2023-07-25 16:37:00 ClaudiaTrevor kramer [facility] TROPONIN I 2023-07-25 16:37:00 Trevor Taylor [facility] COMP. METABOLIC PANEL ([id number]) 2023-07-25 16:37:00 Trevor Taylor [facility] CBC WITH DIFF 2023-07-25 16:37:00 Trevor Taylor [facility] URINALYSIS 2023-07-25 16:37:00 Trevor Taylor [facility] CONSENT/REFUSAL FOR DIAGNOSIS AND TREATMENT 2023-07-25 15:41:41 Doctor Unassigned, [place] [facility] US GALL BLADDER 2023-07-24 22:46:[address] [facility] URINALYSIS 2023-07-24 20:10:00 Johnathan Avila [facility] EXTRA TUBE URINE CULTURE 2023-07-24 20:10:00 Ember Avila [facility] LIPASE 2023-07-24 20:09:00 Johnathan Avila [facility] COMP. METABOLIC PANEL ([id number]) 2023-07-24 20:09:00 Johnathan Avila [facility] LIPID PANEL ([id number])(TOTAL CHOLESTEROL, TRIGLYCERIDES, HDL) 2023-07-24 20:09:00 Johnathan Avila [facility] CBC WITH DIFF 2023-07-24 20:09:00 Johnathan Avila [facility] CONSENT/REFUSAL FOR DIAGNOSIS AND TREATMENT 2023-07-24 18:31:11 Doctor Unassigned, [place] [facility] XR CHEST 2 VW 2023-07-12 03:54:00 [facility] 2023-07-12 02:31:00 [facility] 2023-07-12 02:14:00 Norm Saleh [facility] COMP. METABOLIC PANEL ([id number]) 2023-07-12 02:14:00 Norm Saleh [facility] CBC WITH DIFF 2023-07-12 02:14:00 Norm [facility]h [facility] COVID-19 (ID NOW RAPID TESTING) 2023-07-12 02:14:00 Norm Saleh [facility] CONSENT/REFUSAL FOR DIAGNOSIS AND TREATMENT 2023-07-12 01:47:09 Doctor Unassigned, [place] [facility] CONSENT FOR MEDICAL TREATMENT OF A MINOR 2023-07-10 05:01:00 Doctor Unassigned, [place] [facility] CT ABDOMEN PELVIS W CONTRAST 2023-07-03 10:43:57 Haresh Santamaria [facility] URINALYSIS 2023-07-03 10:23:00 Haresh Santamaria [facility] LIPASE 2023-07-03 10:11:00 Haresh Santamaria [facility] COMP. METABOLIC PANEL ([id number]) 2023-07-03 10:11:00 AufdHaresh gonsalves [facility] CBC WITH DIFF 2023-07-03 10:11:00 Haresh Santamaria [facility] CONSENT/REFUSAL FOR DIAGNOSIS AND TREATMENT 2023-07-03 09:36:41 Doctor Unassigned, [place] [facility] CT ABDOMEN PELVIS W CONTRAST 2023-05-08 02:15:59 Riya Joseph [facility] HB ABO GROUPING 2023-05-08 01:25:00 [facility] 2023-05-08 01:19:00 Elvin Joseph [facility] COMP. METABOLIC PANEL ([id number]) 2023-05-08 01:19:00 Riya Joseph [facility] CBC WITH DIFF 2023-05-08 01:19:00 Elvin Joseph [facility] COVID-19 (ID NOW RAPID TESTING) 2023-05-08 01:19:00 Riya Joseph [facility] CONSENT/REFUSAL FOR DIAGNOSIS AND TREATMENT 2023-05-07 22:22:14 Doctor Unassigned, [place] [facility] LIPASE 2023-05-02 03:01:00 Aydin Matos [facility] COMP. METABOLIC PANEL ([id number]) 2023-05-02 03:01:00 Aydin Matos [facility] ETHANOL 2023-05-02 03:01:00 Aydin Matos [facility] CBC WITH DIFF 2023-05-02 03:01:00 Aydin Matos [facility] URINALYSIS 2023-05-02 03:01:00 Aydin Matos [facility] URINE DRUG (IMMUNOASSAY) - COMPREHENSIVE DRUG SCREEN W/O REFLEX 2023-05-02 03:01:00 Aydin Matos [facility] CONSENT/REFUSAL FOR DIAGNOSIS AND TREATMENT 2023-05-02 02:28:20 Doctor Unassigned, [place] [facility] BASIC METABOLIC PANEL (NA, K, CL, CO2, GLUCOSE, BUN, CREATININE, CA) 2023-04-22 16:47:00 Natali Alexander [facility] LIPASE 2023-04-22 12:58:00 Natali Alexander [facility] BASIC METABOLIC PANEL (NA, K, CL, CO2, GLUCOSE, BUN, CREATININE, CA) 2023-04-22 12:58:00 Benjamin [facility] URINALYSIS 2023-04-22 11:44:00 Abraham Orantes [facility] CREATINE KINASE 2023-04-22 09:06:00 Benjamin [facility] LIPASE 2023-04-22 09:06:00 Natali Alexander [facility] COMP. METABOLIC PANEL ([id number]) 2023-04-22 09:06:00 Abraham Orantes [facility] CBC WITH DIFF 2023-04-22 09:06:00 [facility] CONSENT/REFUSAL FOR DIAGNOSIS AND TREATMENT 2023-04-22 08:52:58 Doctor Unassigned, [place] [facility] LIPASE 2023-04-16 12:30:00 Christa [facility] TROPONIN I 2023-04-16 12:30:00 Christa [facility] COMP. METABOLIC PANEL ([id number]) 2023-04-16 12:30:00 [facility] 2023-04-16 12:30:00 [facility] CONSENT/REFUSAL FOR DIAGNOSIS AND TREATMENT 2023-04-16 11:48:23 Doctor Unassigned, [place] [facility] LIPASE 2023-04-01 05:08:00 [facility] TROPONIN I 2023-04-01 05:08:00 [facility]atha [facility] COMP. METABOLIC PANEL ([id number]) 2023-04-01 05:08:00 Hemalatha Mora [facility] CBC WITH DIFF 2023-04-01 05:08:00 Hemalatha Mora [facility] URINALYSIS 2023-04-01 05:08:00 [facility]atha [facility] CONSENT/REFUSAL FOR DIAGNOSIS AND TREATMENT 2023-04-01 04:51:45 Doctor Unassigned, [place] [facility] ASSIGNMENT OF BENEFITS 2023-02-13 21:19:49 Docto r Unassigned, [place] [facility] POCT GLUCOSE (AUTOMATED) 2023-02-13 21:00:00 Alan Gonzales [facility] CONSENT/REFUSAL FOR DIAGNOSIS AND TREATMENT 2023-02-13 20:50:30 Doctor Unassigned, [place] [facility] REFERRAL- REQUEST/RESPONSE 2023-01-05 05:01:00 Doctor Unassigned, [place] [facility] LIPASE 2022-12-09 05:03:00 [facility] COMP. METABOLIC PANEL ([id number]) 2022-12-09 05:03:00 Soham Clarke [facility] CBC WITH DIFF 2022-12-09 05:03:00 [facility] 2022-12-09 05:03:00 [facility] NOTICE OF PRIVACY PRACTICES 2022-12-09 04:46:36 Doctor Unassigned, [place] [facility] CONSENT/REFUSAL FOR DIAGNOSIS AND TREATMENT 2022-12-09 04:46:16 Doctor Unassigned, [place] [facility] CT ABDOMEN PELVIS W CONTRAST 2022-11-25 05:38:20 Lion Nascimento [facility] LIPASE 2022-11-25 05:06:00 Lion Nascimento [facility] HEPATIC FUNCTION PANEL ([id number]) (ALB,T.PRO,BILI T,BU/BC,ALT,AST,ALK PHOS) 2022-11-25 05:06:00 [facility] BASIC METABOLIC PANEL (NA, K, CL, CO2, GLUCOSE, BUN, CREATININE, CA) 2022-11-25 05:06:00 Lion Nascimento [facility] CBC WITH DIFF 2022-11-25 05:06:00 Lion Nascimento [facility] URINALYSIS 2022-11-25 05:06:00 Lion Nascimento [facility] CONSENT/REFUSAL FOR DIAGNOSIS AND TREATMENT 2022-11-25 04:35:51 Doctor Unassigned, [place] [facility] EXTERNAL PROVIDER RECORDS 2022-10-23 06:01:00 Do ctor Unassigned, [place] [facility] CBC WITH DIFF 2022-10-12 21:26:00 L[facility] PROSTATIC SPECIFIC ANTIGEN 2022-10-12 10:48:00 Jonh Roman [facility] HEPATIC FUNCTION PANEL ([id number]) (ALB,T.PRO,BILI T,BU/BC,ALT,AST,ALK PHOS) 2022-10-12 10:48:00 Jana [facility] BASIC METABOLIC PANEL (NA, K, CL, CO2, GLUCOSE, BUN, CREATININE, CA) 2022-10-12 10:48:00 Jana [facility] CBC WITH DIFF 2022-10-12 10:48:00 Lb Bates [facility] HEPATIC FUNCTION PANEL ([id number]) (ALB,T.PRO,BILI T,BU/BC,ALT,AST,ALK PHOS) 2022-10-11 23:53:00 Jana [facility] BASIC METABOLIC PANEL (NA, K, CL, CO2, GLUCOSE, BUN, CREATININE, CA) 2022-10-11 23:53:00 Jana [facility] US GALL BLADDER 2022-10-11 22:28:58 Jana [facility] ABORH CONFIRMATION (LAB ONLY) 2022-10-11 21:24:00 Jana [facility] URINALYSIS 2022-10-11 21:23:00 Lb [facility] HB ABO GROUPING 2022-10-11 20:41:00 Jana [facility] CBC WITH DIFF 2022-10-11 20:35:00 Lb Bates [facility] CT ANGIOGRAM ABDOMEN/PELVIS 2022-10-11 14:52:00 Aydin Matos [facility] HB ECG ROUTINE & RHYTHM STRIP 2022-10-11 13:48:04 Aydin Matos [facility] LIPASE 2022-10-11 13:42:00 [facility] TROPONIN I 2022-10-11 13:42:00 [facility] COMP. METABOLIC PANEL ([id number]) 2022-10-11 13:42:00 Aydin Matos [facility] LIPID PANEL ([id number])(TOTAL CHOLESTEROL, TRIGLYCERIDES, HDL) 2022-10-11 13:42:00 Lb Bates [facility] CBC WITH DIFF 2022-10-11 13:42:00 Aydin Matos [facility] PROTHROMBIN TIME / INR 2022-10-11 13:42:00 Nicholas Matos [facility] ACTIVATED PARTIAL THRMPLAS TAE 2022-10-11 13:42:00 Aydin Matos [facility] N-TERMINAL PRO-BNP 2022-10-11 13:42:00 Aydin Matos [facility] URINE DRUG (IMMUNOASSAY) - COMPREHENSIVE DRUG SCREEN W/O REFLEX 2022-10-11 13:42:00 [facility] TREATMENT 2022-10-11 12:24:48 Doctor Unassigned, [place] [facility] CT ABDOMEN PELVIS W CONTRAST 2022-10-09 06:30:25 Abraham Orantes [facility] LIPASE 2022-10-09 05:24:00 Abraham Orantes [facility] COMP. METABOLIC PANEL ([id number]) 2022-10-09 05:24:00 Abraham Orantes [facility] CBC WITH DIFF 2022-10-09 05:24:00 [facility] URINALYSIS 2022-10-09 05:24:00 Lamberto [facility] CONSENT/REFUSAL FOR DIAGNOSIS AND TREATMENT 2022-10-09 03:56:57 Doctor Unassigned, [place] [facility] COMP. METABOLIC PANEL ([id number]) 2022-08-20 15:11:00 Trevor Taylor [facility] CBC WITH DIFF 2022-08-20 15:11:00 Trevor Taylor [facility] URINALYSIS 2022-08-20 15:11:00 Trevor Taylor [facility] CONSENT/REFUSAL FOR DIAGNOSIS AND TREATMENT 2022-08-20 14:32:58 Doctor Unassigned, [place] [facility] CT ABDOMEN PELVIS W CONTRAST 2022-06-09 13:12:35 Soham Clarke [facility] LIPASE 2022-06-09 12:48:00 [facility] COMP. METABOLIC PANEL ([id number]) 2022-06-09 12:48:00 Soham Clarke [facility] CBC WITH DIFF 2022-06-09 12:48:00 [facility] 2022-06-09 12:48:00 [facility] NOTICE OF PRIVACY PRACTICES 2022-06-09 11:47:39 Doctor Unassigned, [place] [facility] CONSENT/REFUSAL FOR DIAGNOSIS AND TREATMENT 2022-06-09 11:47:18 Doctor Unassigned, [place] [facility] PHOSPHORUS 2021-11-01 09:55:00 Darshan Jerrica [facility] MAGNESIUM 2021-11-01 09:55:00 Darshan [facility] BASIC METABOLIC PANEL (NA, K, CL, CO2, GLUCOSE, BUN, CREATININE, CA) 2021-11-01 09:55:00 Darshan [facility] CBC WITH DIFF 2021-11-01 09:55:00 Darshan [place] PHOSPHORUS 2021-10-31 08:45:00 Roxanne Swenson [facility] CREATINE KINASE 2021-10-31 08:45:00 Roxanne [facility] MAGNESIUM 2021-10-31 08:45:00 Emelia Gallego [facility] TROPONIN I 2021-10-31 08:45:00 Roxanne Swenson [facility] COMP. METABOLIC PANEL ([id number]) 2021-10-31 08:45:00 Roxanne Swenson [facility] CBC WITH DIFF 2021-10-31 08:45:00 Emelia Gallego [facility] PROTHROMBIN TIME / INR 2021-10-31 08:45:00 Ramos Swenson [facility] N-TERMINAL PRO-BNP 2021-10-31 08:45:00 oRxanne Swenson [facility] LACTIC ACID WHOLE BLOOD 2021-10-31 08:45:00 Erwin Swenson [facility] FECES CULTURE 2021-10-30 22:27:00 [facility] OCCULT (GUAIAC) BLOOD 2021-10-30 22:27:00 Juany Hernandez [facility] CLOSTRIDIUM DIFFICILE TOXIN 2021-10-30 22:27:00 Monica Hernandez [facility] COVID-19 (ID NOW RAPID TESTING) 2021-10-30 21:24:00 Madison Sepulveda [facility] LAB ONLY COVID INTERPRETATION 2021-10-30 21:24:00 Madison Sepulveda [facility] CT ABDOMEN PELVIS W CONTRAST 2021-10-30 20:44:09 Madison Sepulveda [facility] LIPASE 2021-10-30 20:25:00 Madison Sepulveda [facility] TROPONIN I 2021-10-30 20:25:00 Roxanne Swenson [facility] COMP. METABOLIC PANEL ([id number]) 2021-10-30 20:25:00 Madison Sepulveda [facility] CBC WITH DIFF 2021-10-30 20:25:00 Madison Sepulveda [facility] URINALYSIS 2021-10-30 20:25:00 Madison Sepulveda [facility] N-TERMINAL PRO-BNP 2021-10-30 20:25:00 Roxanne Swenson [facility] CONSENT/REFUSAL FOR DIAGNOSIS AND TREATMENT 2021-10-30 19:24:05 Doctor Unassigned, [place] [facility] CREATINE KINASE 2021-05-24 04:40:00 Felipe Ortega U [facility] BASIC METABOLIC PANEL (NA, K, CL, CO2, GLUCOSE, BUN, CREATININE, CA) 2021-05-24 04:40:00 Felipe Ortega [facility] URINALYSIS 2021-05-24 02:14:00 Felipe Ortega [facility] CREATINE KINASE 2021-05-24 01:53:00 [facility] 2021-05-24 01:53:00 Felipe Ortega [facility] COMP. METABOLIC PANEL ([id number]) 2021-05-24 01:53:00 Felipe Ortega [facility] CBC WITH DIFF 2021-05-24 01:53:00 Felipe Ortega [facility] N-TERMINAL PRO-BNP 2021-05-24 01:53:00 Felipe Ortega [facility] ASSIGNMENT OF BENEFITS 2021-05-23 00:46:04 Docto r Unassigned, [place] [facility] CONSENT/REFUSAL FOR DIAGNOSIS AND TREATMENT 2021-05-22 23:31:57 Doctor Unassigned, [place] [facility] SARS-COV-2 COVID-19 VACCINE,0.3ML,IM (PFIZER) 2021-05-07 16:12:40 Doctor Unassigned, [place] [facility] RAPID STREP SCREEN FOR GROUP A 2021-05-02 00:07:00 Aydin Matos [facility] COVID-19 (ID NOW RAPID TESTING) 2021-05-02 00:07:00 Aydin Matos [facility] CONSENT/REFUSAL FOR DIAGNOSIS AND TREATMENT 2021-05-01 23:56:07 Doctor Unassigned, [place] [facility] RAPID STREP SCREEN FOR GROUP A 2021-04-02 01:05:00 Nikhil Blanton [facility] COVID-19 (ID NOW RAPID TESTING) 2021-04-02 01:05:00 Nikhil Blanton [facility] NOTICE OF PRIVACY PRACTICES 2021-04-02 00:56:18 Doctor Unassigned, [place] [facility] CONSENT/REFUSAL FOR DIAGNOSIS AND TREATMENT 2021-04-02 00:49:05 Doctor Unassigned, [place] [facility] XR WRIST 3+ VW LEFT 2021-03-18 01:19:59 Destini Blanton [facility] URINALYSIS 2021-03-18 01:12:00 BlantonNikhil [facility] CONSENT/REFUSAL FOR DIAGNOSIS AND TREATMENT 2021-03-18 00:56:01 Doctor Unassigned, [place] [facility] XR CHEST 1 VW 2020-11-15 03:48:28 Darnell Hsu Edith [facility] CONSENT/REFUSAL FOR DIAGNOSIS AND TREATMENT 2020-11-15 03:11:27 Doctor Unassigned, [place] [facility] CT HEAD WO CONTRAST 2020-09-30 15:00:43 Jessica Siddiqui ra [facility] XR CHEST 1 VW 2020-09-30 14:37:13 Jessy Siddiqui U [facility] LIPASE 2020-09-30 14:25:00 [facility] 2020-09-30 14:25:00 [facility] COMP. METABOLIC PANEL ([id number]) 2020-09-30 14:25:00 Jessy Siddiqui [facility] CBC WITH DIFF 2020-09-30 14:25:00 Jessy Siddiqui U [facility] N-TERMINAL PRO-BNP 2020-09-30 14:25:00 Solitario Siddiqui [facility] NOTICE OF PRIVACY PRACTICES 2020-09-30 13:57:13 Doctor Unassigned, [place] [facility] CONSENT/REFUSAL FOR DIAGNOSIS AND TREATMENT 2020-09-30 13:55:57 Doctor Unassigned, [place] [facility] EKG-12 LEAD 2020-07-02 03:20:42 Felipe Ortega [facility] LIPASE 2020-07-02 03:05:00 Abraham Orantes [facility] TROPONIN I 2020-07-02 03:05:00 Shannon Felipe B [facility] COMP. METABOLIC PANEL ([id number]) 2020-07-02 03:05:00 Abraham Orantes [facility] CBC WITH DIFF 2020-07-02 03:05:00 [facility] NOTICE OF PRIVACY PRACTICES 2020-07-02 02:48:43 Doctor Unassigned, [place] [facility] CONSENT/REFUSAL FOR DIAGNOSIS AND TREATMENT 2020-07-02 02:46:14 Doctor Unassigned, [place] [facility] Plan of Care Planned Activity Planned Date Details Comments Source Goal Plan of Care Note [code = 11663-5] Goal Plan of Care Note [code = 62723-0] Goal Plan of Care Note [code = 33901-4] Goal Plan of Care Note [code = 82527-6] Goal Plan of Care Note [code = 87028-8] Goal Plan of Care Note [code = 67852-7] Goal Plan of Care Note [code = 05279-5] Goal Plan of Care Note [code = 40042-3] Goal Plan of Care Note [code = 80872-1] Goal Plan of Care Note [code = 85709-9] Goal Plan of Care Note [code = 25545-9] Goal Plan of Care Note [code = 89005-0] Goal Plan of Care Note [code = 76313-2] Goal Plan of Care Note [code = 83987-8] Goal Plan of Care Note [code = 34796-1] Encounters Start Date/Time End Date/Time Encounter Type Admission Type Attending [facility] Care Facility Care Department Encounter ID Source 2022-07-29 14:17:02 Outpatient Mayuri James [facility] [id number] [facility] 2022-07-11 08:20:03 Outpatient Mayuri James [facility] [id number] [facility] 2024-09-27 00:00:00 2024-09-27 00:00:00 Outpatient HAYDEN ORTIZ [id number] [facility] 2024-08-30 00:00:00 2024-08-30 00:00:00 Outpatient HAYDEN ORTIZ [id number] [facility] 2024-08-29 09:30:00 2024-08-29 09:30:00 Outpatient OMARI RAZA [id number] [facility] 2024-08-05 08:30:00 2024-08-05 08:30:00 Outpatient ADRI TAYLOR [facility] [id number] [facility] 2024-08-03 00:00:00 2024-08-03 00:00:00 Outpatient MD LUZ MARIA AN [id number] [facility] 2024-07-29 00:00:00 2024-07-29 00:00:00 Outpatient PREZASHAYDEN [facility] [id number] [facility] 2024-07-28 00:00:00 2024-07-28 00:00:00 Outpatient PREZAS, HAYDEN [facility]LLIDAY [id number] [facility] 2024-07-28 00:00:00 2024-07-28 00:00:00 Outpatient MACKENZIE LEANDRO [facility] [id number] [facility] 2024-07-20 08:45:00 2024-07-20 08:45:00 Outpatient PREZAS HAYDEN [facility] [id number] [facility] 2024-07-07 00:00:00 2024-07-07 00:00:00 Outpatient PREZAS, HAYDEN HOLLIDAY [id number] [facility] 2024-06-16 00:00:00 2024-06-16 00:00:00 Outpatient PREZAS, HAYDEN [facility] [id number] [facility] 2024-06-07 16:57:00 2024-06-07 20:05:00 Emergency X LUKE CLARKE JOSHUA [facility] [id number] [facility] 2024-06-07 16:57:00 2024-06-07 20:05:00 Emergency Luke Clarke AT [facility] [id number] [facility] 2024-05-30 09:45:00 2024-05-30 09:45:00 Outpatient PREZABirgit HAYDEN HOLLIDAY [id number] [facility] 2024-05-26 08:30:00 2024-05-26 08:30:00 Outpatient HARSHIL STYLES [facility] [id number] [facility] 2024-05-26 00:00:00 2024-05-26 00:00:00 Outpatient ADRI TAYLOR [facility] [id number] [facility] 2024-05-25 00:00:00 2024-05-25 00:00:00 Outpatient PREZABirgit HAYDEN [facility] [id number] [facility] 2024-05-24 15:00:00 2024-05-24 15:00:00 Outpatient PREZABirgit HAYDEN HOLLIDAY [id number] [facility] 2024-05-23 00:00:00 2024-05-23 00:00:00 Outpatient MD LUZ MARIA AN [id number] [facility] 2024-05-18 11:10:00 2024-05-18 11:10:00 Outpatient NEPTALI FRAGOSOThomas HOLLIDAY [id number] [facility] 2024-05-12 00:00:00 2024-05-12 00:00:00 Outpatient LUZ MAR[facility] [id number] [facility] 2024-05-09 00:00:00 2024-05-09 00:00:00 Outpatient ANGIEZAHAYDEN Genao [facility] [id number] [facility] 2024-05-05 00:00:00 2024-05-05 00:00:00 Outpatient DEEJAY GIBRAN [facility] [id number] [facility] 2024-05-04 08:30:00 2024-05-04 08:30:00 Outpatient LUZ MARIA HOLLDIAY [id number] [facility] 2024-04-29 00:00:00 2024-04-29 00:00:00 Outpatient ANGIEANNIA HAYDEN HOLLID[facility] [id number] [facility] 2024-04-22 08:00:00 2024-04-22 08:00:00 Outpatient LUZ MARIA HOLLIDAY [id number] [facility] Sey[facility] 2024-04-12 09:40:00 2024-04-12 09:40:00 Outpatient BROOK ALLEN [facility] [id number] [facility] 2024-04-11 08:00:00 2024-04-11 08:00:00 Outpatient LUZ MARIA HOLLIDAY [id number] [facility] 2024-04-11 00:00:00 2024-04-11 00:00:00 Outpatient GIBRAN MCADAMS [id number] [facility] 2024-04-08 16:30:00 2024-04-08 16:30:00 Outpatient LEANDRO MANN LUZ MARIA HOLLIDAY [id number] [facility] 2024-04-04 08:10:00 2024-04-04 08:10:00 Outpatient LAB90 LUZ MARIA HOLLIDAY [id number] [facility] 2024-04-02 08:39:00 2024-04-02 12:55:00 Emergency X Trevor TAYLOR K [facility] ERT [id number] [facility] 2024-04-02 08:39:00 2024-04-02 12:55:00 Emergency Trevor Taylor [facility] 1.2.840.114 350.1.13.10 4.2.7.2.686 [id number] [facility] 2024-04-02 00:00:00 2024-04-02 00:00:00 Outpatient GERALD VIDAL [id number] [facility] 2024-03-30 09:00:00 2024-03-30 09:00:00 Outpatient LAB47 LUZ MARIA HOLLIDAY [id number] [facility] 2024-03-30 08:30:00 2024-03-30 08:30:00 Outpatient GIBRAN MCADAMS [id number] [facility] 2024-03-30 00:00:00 2024-03-30 00:00:00 Outpatient GIBRAN MCADAMS [id number] [facility] 2024-03-30 00:00:00 2024-03-30 00:00:00 Outpatient HAYDEN ORTIZ [id number] [facility] 2024-03-28 00:00:00 2024-03-28 00:00:00 Outpatient PREZAHAYDEN Genao [id number] [facility] 2024-03-23 00:00:00 2024-03-23 00:00:00 Outpatient PREZAHAYDEN Genao [id number] [facility] 2024-02-29 00:00:00 2024-02-29 13:30:22 Letter (Out) Karl Ferguson [facility] [place] [facility] 1..840.114 350.1.13.10 4.2.7.2.686 [id number] [facility] 2024-02-24 00:00:00 2024-02-24 00:00:00 Outpatient OUTSIDEMELINA [id number] [facility] 2024-02-24 00:00:00 2024-02-24 00:00:00 Outpatient PREZAS, HAYDEN HOLLIDAY [id number] [facility] 2024-02-22 00:00:00 2024-02-22 14:50:01 Letter (Out) Elida Lewis [facility] 1..840.114 350.1.13.10 4.2.7.2.686 [id number] [facility] 2024-02-22 00:00:00 2024-02-22 00:00:00 Outpatient PREZAS, HAYDEN HOLLIDAY [id number] [facility] 2024-02-20 21:47:00 2024-02-20 23:54:00 Emergency X LETI RIVAS ERICCA [facility] ERT [id number] [facility] 2024-02-20 21:47:00 2024-02-20 23:54:00 Emergency Leti Rivas [facility] ..840.114 350.1.13.10 4.2.7.2.686 [id number] [facility] 2024-01-26 00:00:00 2024-01-26 00:00:00 Outpatient PREZAHAYDEN Genao [id number] [facility] 2024-01-15 00:00:00 2024-01-15 00:00:00 Outpatient PREZASHAYDEN [id number] [facility] 2023-12-28 00:00:00 2023-12-28 00:00:00 Outpatient PREZAS, HAYDEN HOLLIDAY [id number] [facility] 2023-12-18 00:00:00 2023-12-18 00:00:00 Outpatient LUZ MARIA HOLLIDAY [id number] [facility] 2023-12-17 15:30:00 2023-12-17 15:30:00 Outpatient PREZASHAYDEN [id number] [facility] 2023-12-11 00:00:00 2023-12-11 00:00:00 Outpatient PREZAS, HAYDEN HOLLIDAY [id number] [facility] 2023-12-09 20:14:00 2023-12-09 23:50:00 Emergency X OSMAR ORANTESONESIMO [facility] ERT [id number] [facility] 2023-12-09 20:14:00 2023-12-09 23:50:00 Emergency Abraham Orantes S [facility] ..840.114 350.1.13.10 4.2.7.2.686 [id number] [facility] 2023-11-24 00:00:00 2023-11-24 00:00:00 Outpatient PREZAHAYDEN Genao [id number] [facility] 2023-11-18 00:00:00 2023-11-18 00:00:00 Letter (Out) Chavez Turner [facility] [employer] [employer] [facility] ..840.114 350.1.13.10 4.2.7.2.686 [id number] [facility] 2023-11-10 14:00:00 2023-11-10 14:00:00 Outpatient HAYDEN ORTIZAROLDO HOLLIDAY [id number] [facility] 2023-11-09 00:00:00 2023-11-09 00:00:00 Outpatient HAYDEN ORTIZ LUZ MARIA HOLLIDAY [id number] [facility] 2023-11-06 00:00:00 2023-11-06 00:00:00 Outpatient HAYDEN ORTIZ LUZ MARIA HOLLIDAY [id number] [facility] 2023 11:30:00 2023 11:30:00 Outpatient CALLIE THORNE [place] [id number] [facility] 2023-10-16 00:00:00 2023-10-16 00:00:00 Outpatient HAYDEN ORTIZ LUZ MARIA HOLLIDAY [id number] [facility] 2023-10-13 00:00:00 2023-10-13 00:00:00 Outpatient LUZ MARIA HOLLIDAY [id number] [facility] 2023-10-06 14:30:00 2023-10-06 14:30:00 Outpatient HAYDEN ORTIZ LUZ MARIA HOLLIDAY [id number] [facility] 2023-08-14 00:00:00 2023-08-14 00:00:00 Outpatient MERLYN WOR[place] [id number] [facility] 2023-08-13 00:00:00 2023-08-13 00:00:00 Patient Secure Msg Doctor Unassigned, Attu Station [facility] 1.2.840.114 350.1.13.10 4.2.7.2.686 [id number] [facility] 2023-08-11 16:15:00 2023-08-11 16:15:00 Outpatient ADAN CHESTER [id number] [facility] 2023-08-03 20:26:00 2023-08-04 00:05:00 Emergency X ABRAHAM ORANTES [facility] ERT [id number] [facility] 2023-08-03 20:26:00 2023-08-04 00:05:00 Emergency Abraham Orantes [facility] 1.2.840.114 350.1.13.10 4.2.7.2.686 [id number] [facility] 2023-08-03 00:00:00 2023-08-03 00:00:00 Outpatient KIARA RICHARDSON [id number] Luz Maria Ng 2023-08-03 00:00:00 2023-08-03 00:00:00 Orders Only Doctor Unassigned, Attu Station [facility] 1.2.840.114 350.1.13.10 4.2.7.2.686 [id number] [facility] 2023-07-25 09:58:00 2023-07-25 12:56:00 Emergency X Trevor TAYLOR [facility] ERT [id number] [facility] 2023-07-25 09:58:00 2023-07-25 12:56:00 Emergency Trevor Taylor Tiffanie [facility] 1.2.840.114 350.1.13.10 4.2.7.2.686 [id number] [facility] 2023-07-24 12:36:00 2023-07-24 17:49:00 Emergency X JOHNATHAN AVILA [facility] ERT [id number] [facility] 2023-07-24 12:36:00 2023-07-24 17:49:00 Emergency Johnathan Avila [facility] 1.2.840.114 350.1.13.10 4.2.7.2.686 [id number] [facility] 2023-07-24 14:30:00 2023-07-24 14:30:00 Outpatient NHADAN MALIN [id number] [facility] 2023-07-24 00:00:00 2023-07-24 00:00:00 Telephone [facility] 1.2.840.114 350.1.13.10 4.2.7.2.686 [id number] [facility] 2023-07-23 05:22:00 2023-07-23 10:02:00 Emergency EM Kristian Paul [facility] [id number] 66 [facility] 2023-07-22 00:00:00 2023-07-22 00:00:00 [facility] 1..840.114 350.1.13.10 4.2.7.2.686 [id number] [facility] 2023-07-22 00:00:00 2023-07-22 00:00:00 Patient Secure Msg Doctor Unassigned, Attu Station [facility] 1..840.114 350.1.13.10 4.2.7.2.686 [id number] [facility] 2023-07-20 00:00:00 2023-07-20 00:00:00 Telephone [facility] ..840.114 350.1.13.10 4.2.7.2.686 [id number] [facility] 2023-07-17 13:45:00 2023-07-17 13:45:00 Outpatient NANCY BRENNAN [id number] [facility] 2023-07-11 20:53:00 2023-07-11 23:38:00 Emergency X STEPHIE HEWITT [facility] ERT [id number] [facility] 2023-07-11 20:53:00 2023-07-11 23:38:00 Emergency Stephie Hew[facility] 1.2840.114 350.1.13.10 4.2.7.2.686 [id number] [facility] 2023-07-10 08:45:00 2023-07-10 12:03:37 Outpatient R MERLYN HIDALGO [place] [id number] [facility] 2023-07-10 08:45:00 2023-07-10 12:03:37 Office Visit Merlyn Hidalgo [facility] 1.2840.114 350.1.13.10 4.2.7.2.686 [id number] [facility] 2023-07-10 00:00:00 2023-07-10 00:00:00 Orders Only Doctor Unassigned, Attu Station [facility] 1.840.114 350.1.13.10 4.2.7.2.686 [id number] [facility] 2023-07-08 09:15:00 2023-07-08 09:15:00 Outpatient KIARA RICHARDSON [id number] Luz Maria Ng 2023-07-03 04:49:00 2023-07-03 09:47:00 Emergency MIRIAM LIN [facility] [id number] [facility] 2023-07-03 04:49:00 2023-07-03 09:47:00 Emergency Haresh Santamaria Dietrich [facility] [place] 1.840.114 350.1.13.10 4.2.7.2.686 [id number] [facility] 2023-07-01 22:56:00 2023-07-02 01:00:00 Emergency Kristian Billingsley [facility] ER [id number] [facility] 2023-05-20 15:50:00 2023-05-20 15:50:00 Outpatient LAB56 LUZ MARIA HOLLIDAY [id number] Luz Maria Ng 2023-05-20 15:15:00 2023-05-20 15:15:00 Outpatient KIARA RICHARDSON [id number] Luz Maria Ng 2023-05-07 17:37:00 2023-05-07 23:23:00 Emergency X MANFRED KAN [facility] ERT [id number] [facility] 2023-05-07 17:37:00 2023-05-07 23:23:00 Emergency Kelsi hensley [facility] 1.2.840.114 350.1.13.10 4.2.7.2.686 [id number] [facility] 2023-05-01 21:39:00 2023-05-02 00:35:00 Emergency X AYDIN MATOS [facility] ERT [id number] [facility] 2023-05-01 21:39:00 2023-05-02 00:35:00 Emergency MatosAydin [facility] 1.2.840.114 350.1.13.10 4.2.7.2.686 [id number] [facility] 2023-04-22 03:51:00 2023-04-22 13:11:00 Emergency X BENJAMIN [facility] ERT [id number] [facility] 2023-04-22 03:51:00 2023-04-22 13:11:00 Emergency Abraham Orantes [facility] 1.2.840.114 350.1.13.10 4.2.7.2.686 [id number] [facility] 2023-04-16 07:09:00 2023-04-16 09:00:00 Emergency X ADELAIDE GOODWIN [facility] ERT [id number] [facility] 2023-04-16 07:09:00 2023-04-16 09:00:00 Emergency Adelaide Goodwin [facility] 1.2840.114 350.1.13.10 4.2.7.2.686 [id number] [facility] 2023-03-31 23:59:00 2023-04-01 03:24:00 Emergency X HEMALATHA MORA [facility] ERT [id number] [facility] 2023-03-31 23:59:00 2023-04-01 03:24:00 Emergency Hemalatha Mora [facility] 1.2840.114 350.1.13.10 4.2.7.2.686 [id number] [id number] [facility] 2023-02-13 16:02:00 2023-02-13 17:25:00 Emergency X GONZALESJESSICA [facility] ERT [id number] [facility] 2023-02-13 16:02:00 2023-02-13 17:25:00 Emergency GonzalesJessica S [facility] 1.2840.114 350.1.13.10 4.2.7.2.686 [id number] [id number] [facility] 2023-01-05 00:00:00 2023-01-05 00:00:00 Orders Only Doctor Unassigned, Attu Station [facility] 1.2840.114 350.1.13.10 4.2.7.2.686 [id number] [facility] 2022-12-29 17:25:40 2022-12-29 17:25:40 Outpatient [facility] [id number] 0417 Dewey Ponce 2022-12-09 00:01:00 2022-12-09 01:39:00 Emergency X SOHAM CLARKE [facility] ERT [id number] [facility] 2022-12-09 00:01:00 2022-12-09 01:39:00 Emergency Soham Clarke [facility] 1.2840.114 350.1.13.10 4.2.7.2.686 [id number] [facility] 2022-11-24 23:44:00 2022-11-25 02:56:00 Emergency X AYDIN MATOS [facility] ERT [id number] [facility] 2022-11-24 23:44:00 2022-11-25 02:56:00 Emergency Lion Nascimento [facility] 1.2.840.114 350.1.13.10 4.2.7.2.686 [id number] [id number] [facility] 2022-10-25 00:00:00 2022-10-25 00:00:00 Patient Secure Msg Doctor Unassigned, Attu Station [facility] 1.2.840.114 350.1.13.10 4.2.7.2.686 [id number] [facility] 2022-10-23 00:00:00 2022-10-23 00:00:00 Orders Only Doctor Unassigned, Attu Station [facility] 1.2840.114 350.1.13.10 4.2.7.2.686 [id number] [facility] 2022-10-11 06:41:00 2022-10-12 17:56:00 Outpatient X MARK HERNANDEZ [facility] MARTI [id number] [facility] 2022-10-11 06:41:00 2022-10-12 17:56:00 Emergency Aydin Matos Norman M [facility] 1.2840.114 350.1.13.10 4.2.7.2.686 [id number] [facility] 2022-10-08 22:15:00 2022-10-09 01:39:00 Emergency X ABRAHAM ORANTES [facility] ERT [id number] [facility] 2022-10-08 22:15:00 2022-10-09 01:39:00 Emergency Abraham Orantes [facility] 1.2.840.114 350.1.13.10 4.2.7.2.686 [id number] [facility] 2022-10-08 00:00:00 2022-10-08 00:00:00 Orders Only Doctor Unassigned, Attu Station [facility] 1.2.840.114 350.1.13.10 4.2.7.2.686 [id number] [facility] 2022-08-20 08:42:00 2022-08-20 12:19:00 Emergency X Trevor TAYLOR [facility] ERT [id number] [facility] 2022-08-20 08:42:00 2022-08-20 12:19:00 Emergency Trevor Taylor [facility] 1.2840.114 350.1.13.10 4.2.7.2.686 [id number] [facility] 2022-07-11 00:00:00 2022-07-11 00:00:00 OFFICE VISIT NEW PT LEVEL 3 STLMLC STLMLC [id number] [facility] 2022-07-09 10:07:22 2022-07-09 10:07:22 Outpatient SFA [facility] [id number] 1026 Dewey Tripathi Kris 2022-07-09 00:00:00 2022-07-09 00:00:00 Outpatient Visit [id number] 2022-06-09 06:57:00 2022-06-09 10:27:00 Emergency SOHAM BOLANOS [facility] ERT [id number] [facility] 2022-06-09 06:57:00 2022-06-09 10:27:00 Emergency Soham Clarke [facility] 1.2840.114 350.1.13.10 4.2.7.2.686 [id number] [facility] 2022-06-09 00:00:00 2022-06-09 00:00:00 Orders Only Doctor Unassigned, Attu Station [facility] 1.2.840.114 350.1.13.10 4.2.7.2.686 [id number] [facility] 2021-11-04 00:00:00 2021-11-04 00:00:00 Transition of Care Carly Ellen REN 1.2840.114 350.1.13.10 4.2.7.2.686 [id number] [facility] 2021-10-30 13:39:00 2021-11-01 13:45:00 Inpatient X EMELIA GALLEGO [facility] [id number] [facility] 2021-10-30 13:39:00 2021-11-01 13:45:00 Hospital Encounter Madison Sepulveda David [facility] 1.2840.114 350.1.13.10 4.2.7.2.686 [id number] [facility] 2021-10-30 00:00:00 2021-10-30 00:00:00 Orders Only Doctor Unassigned, Attu Station [facility] 1.2840.114 350.1.13.10 4.2.7.2.686 [id number] [facility] 2021-05-23 20:42:00 2021-05-24 01:42:00 Emergency Felipe Ortega [facility] 1.2.840.114 350.1.13.10 4.2.7.2.686 [id number] [facility] 2021-05-23 20:42:00 2021-05-23 20:42:00 Emergency X FELIPE ORTEGA [facility] ERT [id number] [facility] 2021-05-22 18:37:00 2021-05-22 21:40:00 Emergency Gabriella Zarate [facility] 1.2.840.114 350.1.13.10 4.2.7.2.686 [id number] [facility] 2021-05-22 18:31:00 2021-05-22 18:31:00 Emergency X [facility] ERT [id number] [facility] 2021-05-07 11:11:35 2021-05-07 11:11:42 Imm/Inj Visit Nurse, Malika Mallory [facility] 1.2.840.114 350.1.13.10 4.2.7.2.686 [id number] [facility] 2021-05-01 19:09:00 2021-05-01 20:46:00 Emergency Harvinder [facility] 1.2.840.114 350.1.13.10 4.2.7.2.686 [id number] [facility] 2021-05-01 18:53:00 2021-05-01 18:53:00 Emergency X [facility] ERT [id number] [facility] 2021-04-01 20:06:00 2021-04-01 21:56:00 Emergency Hortencia Blantonanne [facility] 1.2.840.114 350.1.13.10 4.2.7.2.686 [id number] 084 [id number] [facility] 2021-04-01 20:06:00 2021-04-01 21:56:00 Emergency Blanton, [facility] 1.2.840.114 350.1.13.10 4.2.7.2.686 [id number] 2021-04-01 20:06:00 2021-04-01 20:06:00 Emergency X NIKHIL BLANTON [facility] ERT [id number] [facility] 2021-03-17 20:09:00 2021-03-17 22:19:00 Emergency BlantonNikhil ambrocio [facility] 1.2.840.114 350.1.13.10 4.2.7.2.686 [id number] [facility] 2021-03-17 20:09:00 2021-03-17 22:19:00 Emergency BlantonNikhil ambrocio [facility] 1.2.840.114 350.1.13.10 4.2.7.2.686 [id number] 2021-03-17 19:56:00 2021-03-17 19:56:00 Emergency X [facility] ERT [id number] [facility] 2020-11-15 00:00:00 2020-11-15 00:00:00 Letter (Out) Mirna Mar [facility] 1.2.840.114 350.1.13.10 4.2.7.2.686 [id number] [facility] 2020-11-15 00:00:00 2020-11-15 00:00:00 Telephone Pcp, Patient Does Not Have A [facility] 1.2.840.114 350.1.13.10 4.2.7.2.686 [id number] [facility] 2020-11-15 00:00:00 2020-11-15 00:00:00 Telephone Pcp, Patient Does Not Have A [facility] 1.2.840.114 350.1.13.10 4.2.7.2.686 [id number] 2020-11-15 00:00:00 2020-11-15 00:00:00 [facility] ([facility].2.840.114 350.1.13.10 4.2.7.2.686 [id number] [id number] 2020-11-14 21:29:00 2020-11-14 22:55:00 Emergency Darnell Hsu [facility] 1.2.840.114 350.1.13.10 4.2.7.2.686 [id number] [facility] 2020-11-14 21:29:00 2020-11-14 22:55:00 Emergency X DARNELL HSU [facility] ERT [id number] [facility] 2020-11-14 21:29:00 2020-11-14 22:55:00 Emergency Darnell Hsu [facility] 1.2.840.114 350.1.13.10 4.2.7.2.686 [id number] 2020-09-30 08:03:00 2020-09-30 10:45:00 Emergency Jessy Siddiqui [facility] 1.2.840.114 350.1.13.10 4.2.7.2.686 [id number] [id number] [facility] 2020-09-30 08:03:00 2020-09-30 10:45:00 Emergency Jsesy Siddiqui [facility] 1.2.840.114 350.1.13.10 4.2.7.2.686 [id number] 2020-09-30 07:58:00 2020-09-30 07:58:00 Emergency X [facility] ERT [id number] [facility] 2020-09-30 00:00:00 2020-09-30 00:00:00 Orders Only Doctor Unassigned, Attu Station [facility] 1.2.840.114 350.1.13.10 4.2.7.2.686 [id number] [facility] 2020-09-30 00:00:00 2020-09-30 00:00:00 Orders Only Doctor Unassigned, Attu Station [facility] 1.2.840.114 350.1.13.10 4.2.7.2.686 [id number] 2020-07-01 21:58:00 2020-07-01 23:54:00 Emergency [place] [facility] 1.2.840.114 350.1.13.10 4.2.7.2.686 [id number] 084 [id number] [facility] 2020-07-01 21:58:00 2020-07-01 23:54:00 Emergency Shannon [facility] 1.2.840.114 350.1.13.10 4.2.7.2.686 [id number] 2020-07-01 21:58:00 2020-07-01 21:58:00 Emergency X SHANNON FELIPE [facility] ERT [id number] [facility] Results Test Description Test Time Test Comments Results Result Co mments Source [facility] [id number] 23:38:46* Test Item Value Reference Range Interpretation Comme nts TROPONIN I (test code = 1788298934) 0.004 ng/mL <=0.034 KRYSTLE (test code = [...] of biotin. Lab Interpretation (test code = 38387-3) [facility] 2 [id number] 23:34:49Exam: Chest (2 Views), 06/07/2024 5:00 PM. Ordering Physician: LUKE CLARKE. History: sob . Technique: Two views of the chest. Comparison: Chest radiograph 07/11/2023. Findings: No focal consolidation. No pneumothorax or effusion. Normal size of thecardiac silhouette. No acute osseous finding.[facility]-[id number] 23:30:44* Test Item Value Reference Range Interpretation Comments D-DIMER (test code = 1092443746) 0.22 See_Comment [Automated message] The system which [...] a diagnosis. Lab Interpretation (test code = 85261-9) Normal [facility]. METABOLIC PANEL (26444)2024-06-07 23:28:22* Test Item Value Reference Range Interpretation Comme nts NA (test code = 0046273071) 136 mmol/L 135-145 K (test code = 2837360399) 4.1 mmol/L 3.5-5.0 CL (test code = 8865616953) 103 mmol/L 98-108 CO2 TOTAL (test code = 8684410097) 25 mmol/L 23-31 AGAP (test code = 5282979299) 8 2-16 BUN (test code = 5374144927) 19 mg/dL 7-23 GLUCOSE (test code = 3413992458) 89 mg/dL 70-110 CREATININE (test code = 2160-0) 0.99 mg/dL 0.60-1.25 TOTAL BILI (test code = 5869950525) 1.1 mg/dL 0.1-1.1 CALCIUM (test code = 0126380464) 9.3 mg/dL 8.6-10.6 T PROTEIN (test code = 4994802369) 8.8 g/dL 6.3-8.2 H ALBUMIN (test code = 1271068988) 4.8 g/dL 3.5-5.0 ALK PHOS (test code = 4886720840) 51 U/L 34-122 ALTv (test code = 1742-6) 27 U/L 5-50 AST(SGOT) (test code = 0396139233) 35 U/L 13-40 eGFR (test code = 55369-5) 92.2 mL/min/1.73m2 CKD-EPI eGFR (2020). Assuming creatinine has been stable day-to-day for at least three months, the eGFR indicates Category G1 (>= 90 mL/min/1.73 m2) Lab Interpretation (test code = 61936-1) Abnormal [facility] PasoMagnesium2024-09-24 23:28:02* Test Item Value Reference Range Interpretation Comme nts MAGNESIUM (test code = 3431568759) 1.8 mg/dL 1.7-2.4 Lab Interpretation (test cod e = 85210-2) Normal [facility] PasoLIPASE2024-09-24 23:28:02* Test Item Value Reference Range Interpretation Comme nts LIPASE (test code = 3426518539) 67 U/L 0-220 Lab Interpretation (test cod e = 51515-7) Normal [facility] PasoCreatine Sahlls0763-26-56 23:27:41* Test Item Value Reference Range Interpretation Comme nts CK (test code = 8735771102) 475 U/L 33-194 H Lab Interpretation (test cod e = 41597-7) Abnormal [facility] PasoCB WITH [id number] 23:13:43* Test Item Value Reference Range Interpretation [...] 34.2 g/dL 31.2-35.0 RDW-SD (test code = 53834-9) 42.2 fL 38.5-51.6 RDW-CV (test code = 788-0) 13.0 % 12.1-15.4 PLT (test code = 777-3) 219 150-328 MPV (test code = 76821-8) 9.9 fL 9.8-13.0 NRBC/100 WBC (test code = 1635473926) 0.0 0.0-10.0 NRBC x10^3 (test code = 7027107555) See_Comment [Automated messa ge] The system which generated this result transmitted reference range: 10*3/?L. The reference range was not used to interpret this result as normal/abnormal. GRAN MAT (NEUT) % (test code = 770-8) 77.8 % IMM GRAN % (test code = 2005721106) 0.30 % LYMPH % (test code = 736-9) 15.6 % MONO % (test code = 5905-5) 5.7 % EOS % (test code = 713-8) 0.5 % BASO % (test code = 706-2) 0.1 % GRAN MAT x10^3(ANC) (test code = 0155973244) 5.87 10*3/uL 1.99-6.95 IMM GRAN x10^3 (test code = 2823794419) 0.00-0.06 LYMPH x10^3 (test code = 731-0) 1.18 10*3/uL 1.09-3.23 MONO x10^3 (test code = 742-7) 0.43 10*3/uL 0.36-1.02 EOS x10^3 (test code = 711-2) 0.04 10*3/uL 0.06-0.53 L BASO x10^3 (test code = 704-7) 0.01-0.09 Lab Interpretation (test code = 91381-1) [facility] [id number] 15:49:54* Test Item Value Reference Range Interpretation Comme nts TROPONIN I (test code = 4618838207) <=0.034 KRYSTLE (test code = KRYSTLE) Reference [...] of biotin. Lab Interpretation (test code = 07424-8) [facility] [id number] 15:06:25CT ABDOMEN PELVIS W CONTRAST HISTORY: 53 [...] hernia is seen. Degenerative changes atL5-S1 level noted.[facility] (51756)2024-04-02 14:58:53* Test Item Value Reference Range Interpretation Comme nts NA (test code = 7797431134) 138 mmol/L 135-145 K (test code = 8380417559) 4.6 mmol/L 3.5-5.0 CL (test code = 1920791166) 105 mmol/L 98-108 CO2 TOTAL (test code = 0579093112) 28 mmol/L 23-31 AGAP (test code = 2389757142) 5 2-16 BUN (test code = 4449188192) 19 mg/dL 7-23 GLUCOSE (test code = 9311906179) 117 mg/dL 70-110 H CREATININE (test code = 2160-0) 0.91 mg/dL 0.60-1.25 TOTAL BILI (test code = 8944904141) 0.8 mg/dL 0.1-1.1 CALCIUM (test code = 3778241889) 9.2 mg/dL 8.6-10.6 T PROTEIN (test code = 7407225076) 8.4 g/dL 6.3-8.2 H ALBUMIN (test code = 1915997451) 4.4 g/dL 3.5-5.0 ALK PHOS (test code = 9946760297) 58 U/L 34-122 ALTv (test code = 1742-6) 28 U/L 5-50 AST(SGOT) (test code = 8038546305) 33 U/L 13-40 eGFR (test code = 16311-4) 102.0 mL/min/1.73m2 CKD-EPI eGFR (2020). Assuming creatinine has been stable day-to-day for at least three months, the eGFR indicates Category G1 (>= 90 mL/min/1.73 m2) Lab Interpretation (test code = 44480-2) [facility] PasoL[facility] (96685)(Total Cholesterol, Triglycerides, HDL)2024-04-02 14:58:53* Test Item Value Reference Range Interpretation Comme nts CHOL (test code = 5158087155) 190 mg/dL 120-200 HDL (test code = 3870600079) 37 mg/dL >=40 L HDLC RATIO (test code = 0504550001) 5.1 <=5.0 H TRIG (test code = 3601573795) 107 mg/dL 30-170 LDL CHOL (test code = 52655-6) 132 mg/dL <=160 VLDL (test code = 2824377620) 21 mg/dL 5-60 Lab Interpretation (test cod e = 88923-1) [facility]normal [facility] PasoMagnesium2024-07-20 14:58:32* Test Item Value Reference Range Interpretation Comme nts MAGNESIUM (test code = 4966951678) 1.9 mg/dL 1.7-2.4 Lab Interpretation (test cod e = 67659-4) Normal [facility] PasoLipase2024-07-20 14:58:12* Test Item Value Reference Range Interpretation Comme nts LIPASE (test code = 6512615471) 384 U/L 0-220 H Lab Interpretation (test cod e = 98393-7) [facility] Paso[facility]b with Kmrm2876-31-89 14:40:51* Test Item Value Reference Range Interpretation [...] 35.0 g/dL 31.2-35.0 RDW-SD (test code = 13896-0) 41.7 fL 38.5-51.6 RDW-CV (test code = 788-0) 13.3 % 12.1-15.4 PLT (test code = 777-3) 216 150-328 MPV (test code = 77846-9) 9.9 fL 9.8-13.0 NRBC/100 WBC (test code = 8688064576) 0.0 0.0-10.0 NRBC x10^3 (test code = 3820542463) See_Comment [Automated me ssage] The system which generated this result transmitted reference range: 10*3/?L. The reference range was not used to interpret this result as normal/abnormal. GRAN MAT (NEUT) % (test code = 770-8) 44.1 % IMM GRAN % (test code = 9834758644) 0.40 % LYMPH % (test code = 736-9) 45.4 % MONO % (test code = 5905-5) 8.4 % EOS % (test code = 713-8) 1.1 % BASO % (test code = 706-2) 0.6 % GRAN MAT x10^3(ANC) (test code = 9523479974) 2.31 10*3/uL 1.99-6.95 IMM GRAN x10^3 (test code = 6599106502) 0.00-0.06 LYMPH x10^3 (test code = 731-0) 2.38 10*3/uL 1.09-3.23 MONO x10^3 (test code = 742-7) 0.44 10*3/uL 0.36-1.02 EOS x10^3 (test code = 711-2) 0.06 10*3/uL 0.06-0.53 BASO x10^3 (test code = 704-7) 0.03 10*3/uL 0.01-0.09 [facility] METABOLIC PANEL (11710)2024-02-21 03:54:20* Test Item Value Reference Range Interpretation Comme nts NA (test code = 2484462488) 137 mmol/L 135-145 K (test code = 8064742357) 3.9 mmol/L 3.5-5.0 CL (test code = 2154564131) 106 mmol/L 98-108 CO2 TOTAL (test code = 5511553078) 26 mmol/L 23-31 AGAP (test code = 6407984810) 5 2-16 BUN (test code = 1896436941) 14 mg/dL 7-23 GLUCOSE (test code = 9289915378) 128 mg/dL 70-110 H CREATININE (test code = 2160-0) 0.98 mg/dL 0.60-1.25 TOTAL BILI (test code = 8068927336) 0.5 mg/dL 0.1-1.1 CALCIUM (test code = 5538108444) 8.6 mg/dL 8.6-10.6 T PROTEIN (test code = 3312321431) 7.4 g/dL 6.3-8.2 ALBUMIN (test code = 7077534461) 4.1 g/dL 3.5-5.0 ALK PHOS (test code = 6382817170) 66 U/L 34-122 ALTv (test code = 1742-6) 25 U/L 5-50 AST(SGOT) (test code = 5087354538) 39 U/L 13-40 eGFR (test code = 55597-2) 93.4 mL/min/1.73m2 CKD-EPI eGFR (2020). Assuming creatinine has been stable day-to-day for at least three months, the eGFR indicates Category G1 (>= 90 mL/min/1.73 m2) Lab Interpretation (test code = 82361-1) [facility]normal [facility]ASE2024-06-09 03:53:40* Test Item Value Reference Range Interpretation Comme nts LIPASE (test code = 4341830968) 117 U/L 0-220 Lab Interpretation (test cod e = 32375-8) Normal [facility] WITH [id number] 03:39:58* Test Item Value Reference Range Interpretation [...] 34.8 g/dL 31.2-35.0 RDW-SD (test code = 23129-5) 40.3 fL 38.5-51.6 RDW-CV (test code = 788-0) 12.7 % 12.1-15.4 PLT (test code = 777-3) 216 150-328 MPV (test code = 97668-1) 9.6 fL 9.8-13.0 L NRBC/100 WBC (test code = 3312355888) 0.0 0.0-10.0 NRBC x10^3 (test code = 0759294212) See_Comment [Automated messa ge] The system which generated this result transmitted reference range: 10*3/?L. The reference range was not used to interpret this result as normal/abnormal. GRAN MAT (NEUT) % (test code = 770-8) 32.8 % IMM GRAN % (test code = 4322398622) 0.20 % LYMPH % (test code = 736-9) 58.5 % MONO % (test code = 5905-5) 6.6 % EOS % (test code = 713-8) 1.4 % BASO % (test code = 706-2) 0.5 % GRAN MAT x10^3(ANC) (test code = 7573439894) 1.94 10*3/uL 1.99-6.95 L IMM GRAN x10^3 (test code = 0869201917) 0.00-0.06 LYMPH x10^3 (test code = 731-0) 3.46 10*3/uL 1.09-3.23 H MONO x10^3 (test code = 742-7) 0.39 10*3/uL 0.36-1.02 EOS x10^3 (test code = 711-2) 0.08 10*3/uL 0.06-0.53 BASO x10^3 (test code = 704-7) 0.03 10*3/uL 0.01-0.09 Lab Interpretation (test code = 81182-7) Abnormal [facility] with [id number] 03:17:11* Test Item Value Reference Range Interpretation [...] 34.8 g/dL 31.2-35.0 RDW-SD (test code = 34001-5) 39.9 fL 38.5-51.6 RDW-CV (test code = 788-0) 12.7 % 12.1-15.4 PLT (test code = 777-3) 240 150-328 MPV (test code = 73154-8) 9.8 fL 9.8-13.0 NRBC/100 WBC (test code = 2967628322) 0.0 0.0-10.0 NRBC x10^3 (test code = 5814107417) See_Comment [Automated messa ge] The system which generated this result transmitted reference range: 10*3/?L. The reference range was not used to interpret this result as normal/abnormal. GRAN MAT (NEUT) % (test code = 770-8) 31.3 % IMM GRAN % (test code = 3123985557) 0.00 % LYMPH % (test code = 736-9) 57.3 % MONO % (test code = 5905-5) 9.3 % EOS % (test code = 713-8) 1.6 % BASO % (test code = 706-2) 0.5 % GRAN MAT x10^3(ANC) (test code = 8842074253) 1.94 10*3/uL 1.99-6.95 L IMM GRAN x10^3 (test code = 2803819269) 0.00-0.06 LYMPH x10^3 (test code = 731-0) 3.56 10*3/uL 1.09-3.23 H MONO x10^3 (test code = 742-7) 0.58 10*3/uL 0.36-1.02 EOS x10^3 (test code = 711-2) 0.10 10*3/uL 0.06-0.53 BASO x10^3 (test code = 704-7) 0.03 10*3/uL 0.01-0.09 Lab Interpretation (test code = 48942-0) [facility] (38168)2023-12-10 03:13:49* Test Item Value Reference Range Interpretation Comme nts NA (test code = 4878336267) 141 mmol/L 135-145 K (test code = 3501454133) 4.3 mmol/L 3.5-5.0 CL (test code = 0488738586) 107 mmol/L 98-108 CO2 TOTAL (test code = 9283472502) 26 mmol/L 23-31 AGAP (test code = 3946864975) 8 2-16 BUN (test code = 8608988190) 20 mg/dL 7-23 GLUCOSE (test code = 2876361947) 123 mg/dL 70-110 H CREATININE (test code = 2160-0) 0.95 mg/dL 0.60-1.25 TOTAL BILI (test code = 4099315843) 0.8 mg/dL 0.1-1.1 CALCIUM (test code = 7522022271) 9.0 mg/dL 8.6-10.6 T PROTEIN (test code = 4349060656) 8.4 g/dL 6.3-8.2 H ALBUMIN (test code = 3848039037) 4.3 g/dL 3.5-5.0 ALK PHOS (test code = 6062539036) 58 U/L 34-122 ALTv (test code = 1742-6) 33 U/L 5-50 AST(SGOT) (test code = 7627832572) 52 U/L 13-40 H eGFR (test code = 03227-0) 96.9 mL/min/1.73m2 CKD-EPI eGFR (2020). Assuming creatinine has been stable day-to-day for at least three months, the eGFR indicates Category G1 (>= 90 mL/min/1.73 m2) Lab Interpretation (test code = 35092-4) [facility] W [id number] 03:12:08CT ABDOMEN PELVIS W CONTRAST HISTORY: 53 [...] TISSUES: No suspicious lytic or sclerotic bony lesions.[facility] BASIC METABOLIC PANEL (NA, K, CL, CO2, GLUCOSE, BUN, CREATININE, CA)2023-08-04 03:27:21* Test Item Value Reference Range Interpretation Comme nts NA (test code = 8362312097) 140 mmol/L 135-145 K (test code = 0564173649) 3.9 mmol/L 3.5-5.0 CL (test code = 6608507442) 104 mmol/L 98-108 CO2 TOTAL (test code = 1093942253) 28 mmol/L 23-31 AGAP (test code = 1217393983) 8 2-16 BUN (test code = 7573352254) 15 mg/dL 7-23 GLUCOSE (test code = 5745020118) 155 mg/dL 70-110 H CREATININE (test code = 8518853140) 1.37 mg/dL 0.60-1.25 H CALCIUM (test code = 1167268679) 9.5 mg/dL 8.6-10.6 eGFR (test code = 21506-5) 62.8 mL/min/1.73m2 CKD-EPI eGFR (2020). Assuming creatinine has been stable day-to-day for at least three months, the eGFR indicates Category G2 (60 - 89 mL/min/1.73 m2) Lab Interpretation (test code = 29953-0) Abnormal [facility] WITH [id number] 03:12:39* Test Item Value Reference Range Interpretation [...] g/dL 31.2-35.0 H RDW-SD (test code = 25357-0) 38.1 fL 38.5-51.6 L RDW-CV (test code = 788-0) 12.3 % 12.1-15.4 PLT (test code = 777-3) 238 See_Comment [Automated messa ge] The system which generated this result transmitted reference range: 150 - 328 10*3/?L. The reference range was not used to interpret this result as normal/abnormal. MPV (test code = 02648-0) 9.8 fL 9.8-13.0 NRBC/100 WBC (test code = 4642014168) 0.0 See_Comment [Automated me ssage] The system which generated this result transmitted reference range: 0.0 - 10.0 /100 WBCs. The reference range was not used to interpret this result as normal/abnormal. NRBC x10^3 (test code = 8008031423) See_Comment [Automated messa ge] The system which generated this result transmitted reference range: 10*3/?L. The reference range was not used to interpret this result as normal/abnormal. GRAN MAT (NEUT) % (test code = 770-8) 37.8 % IMM GRAN % (test code = 1070262300) 0.30 % LYMPH % (test code = 736-9) 52.7 % MONO % (test code = 5905-5) 7.7 % EOS % (test code = 713-8) 1.1 % BASO % (test code = 706-2) 0.4 % GRAN MAT x10^3(ANC) (test code = 5993785767) 2.63 10*3/uL 1.99-6.95 IMM GRAN x10^3 (test code = 2821068675) 0.00-0.06 LYMPH x10^3 (test code = 731-0) 3.68 10*3/uL 1.09-3.23 H MONO x10^3 (test code = 742-7) 0.54 10*3/uL 0.36-1.02 EOS x10^3 (test code = 711-2) 0.08 10*3/uL 0.06-0.53 BASO x10^3 (test code = 704-7) 0.03 10*3/uL 0.01-0.09 Lab Interpretation (test code = 14563-2) [facility]normal [facility] PasoMELISSA [id number] 17:24:34* Test Item Value Reference Range Interpretation Comme nts TROPONIN I (test code = 6561872686) 0.018 ng/mL <=0.034 KRYSTLE (test code = [...] of biotin. Lab Interpretation (test code = 63570-3) [facility] PasoMAGNESIUM2023-11-11 17:13:15* Test Item Value Reference Range Interpretation Comme nts MAGNESIUM (test code = 5844515846) 1.9 mg/dL 1.7-2.4 Lab Interpretation (test cod e = 84288-4) [facility] METABOLIC PANEL (76606)2023-07-25 17:12:55* Test Item Value Reference Range Interpretation Comme nts NA (test code = 6527564195) 141 mmol/L 135-145 K (test code = 5003525190) 3.8 mmol/L 3.5-5.0 CL (test code = 7097376979) 106 mmol/L 98-108 CO2 TOTAL (test code = 6718061154) 27 mmol/L 23-31 AGAP (test code = 5974762005) 8 2-16 BUN (test code = 0858795179) 14 mg/dL 7-23 GLUCOSE (test code = 4429174540) 124 mg/dL 70-110 H CREATININE (test code = 1235040168) 0.93 mg/dL 0.60-1.25 TOTAL BILI (test code = 6063309992) 0.8 mg/dL 0.1-1.1 CALCIUM (test code = 6957546453) 9.3 mg/dL 8.6-10.6 T PROTEIN (test code = 3591760840) 8.2 g/dL 6.3-8.2 ALBUMIN (test code = 5923828161) 4.4 g/dL 3.5-5.0 ALK PHOS (test code = 7896502438) 49 U/L 34-122 ALTv (test code = 1742-6) 20 U/L 5-50 AST(SGOT) (test code = 2958306953) 28 U/L 13-40 eGFR (test code = 79748-2) 100.0 mL/min/1.73m2 CKD-EPI eGFR (2020). Assuming creatinine has been stable day-to-day for at least three months, the eGFR indicates Category G1 (>= 90 mL/min/1.73 m2) Lab Interpretation (test code = 79392-1) [facility]normal [facility]ASE2023-11-11 17:12:35* Test Item Value Reference Range Interpretation Comme nts LIPASE (test code = 8614441444) 109 U/L 0-220 Lab Interpretation (test cod e = 45470-0) Normal [facility] WITH [id number] 16:59:59* Test Item Value Reference Range Interpretation Comme nts WBC (test code = 6690-2) 5.17 See_Comment [Automated [employer]a ge] The system which generated this result transmitted reference range: 4.20 - 10.70 10*3/?L. The reference range was not used to interpret this result as normal/abnormal. RBC (test code = 789-8) 5.04 See_Comment [Automated [employer] ge] The system which generated this result [...] g/dL 31.2-35.0 H RDW-SD (test code = 59907-2) 39.2 fL 38.5-51.6 RDW-CV (test code = 788-0) 12.5 % 12.1-15.4 PLT (test code = 777-3) 207 See_Comment [Automated messa ge] The system which generated this result transmitted reference range: 150 - 328 10*3/?L. The reference range was not used to interpret this result as normal/abnormal. MPV (test code = 34155-2) 10.0 fL 9.8-13.0 NRBC/100 WBC (test code = 4378925737) 0.0 See_Comment [Automated [employer] ssage] The system which generated this result transmitted reference range: 0.0 - 10.0 /100 WBCs. The reference range was not used to interpret this result as normal/abnormal. NRBC x10^3 (test code = 3545815333) See_Comment [Automated messa ge] The system which generated this result transmitted reference range: 10*3/?L. The reference range was not used to interpret this result as normal/abnormal. GRAN MAT (NEUT) % (test code = 770-8) 45.8 % IMM GRAN % (test code = 4867018830) 0.20 % LYMPH % (test code = 736-9) 42.9 % MONO % (test code = 5905-5) 9.9 % EOS % (test code = 713-8) 0.8 % BASO % (test code = 706-2) 0.4 % GRAN MAT x10^3(ANC) (test code = 0258880429) 2.37 10*3/uL 1.99-6.95 IMM GRAN x10^3 (test code = 3519632209) 0.00-0.06 LYMPH x10^3 (test code = 731-0) 2.22 10*3/uL 1.09-3.23 MONO x10^3 (test code = 742-7) 0.51 10*3/uL 0.36-1.02 EOS x10^3 (test code = 711-2) 0.04 10*3/uL 0.06-0.53 L BASO x10^3 (test code = 704-7) 0.01-0.09 Lab Interpretation (test code = 41579-3) [facility]normal [facility] PasoLIPID PANEL (44915)(TOTAL CHOLESTEROL, TRIGLYCERIDES, HDL)2023-07-24 21:48:18* Test Item Value Reference Range Interpretation Comme nts CHOL (test code = 4264819558) 220 mg/dL 120-200 H HDL (test code = 6980009940) 31 mg/dL >=40 L HDLC RATIO (test code = 7748443008) 7.1 <=5.0 H TRIG (test code = 7462248784) 134 mg/dL 30-170 LDL CHOL (test code = 69852-1) 162 mg/dL <=160 H VLDL (test code = 2415848909) 27 mg/dL 5-60 Lab Interpretation (test cod e = 47001-3) [facility]normal [facility] PasoComplete Metabolic Rpsev9391-79-10 20:48:07* Test Item Value Reference Range Interpretation Comme nts NA (test code = 2881663023) 141 mmol/L 135-145 K (test code = 3061911643) 3.8 mmol/L 3.5-5.0 CL (test code = 0643584758) 103 mmol/L 98-108 CO2 TOTAL (test code = 6922834837) 29 mmol/L 23-31 AGAP (test code = 9102786200) 9 2-16 BUN (test code = 2774169729) 14 mg/dL 7-23 GLUCOSE (test code = 0355680307) 102 mg/dL 70-110 CREATININE (test code = 9551534816) 0.85 mg/dL 0.60-1.25 TOTAL BILI (test code = 4176377633) 1.2 mg/dL 0.1-1.1 H CALCIUM (test code = 5228897952) 10.0 mg/dL 8.6-10.6 T PROTEIN (test code = 5229825251) 8.9 g/dL 6.3-8.2 H ALBUMIN (test code = 6888308568) 5.0 g/dL 3.5-5.0 ALK PHOS (test code = 2909840856) 52 U/L 34-122 ALTv (test code = 1742-6) 22 U/L 5-50 AST(SGOT) (test code = 7513171620) 45 U/L 13-40 H eGFR (test code = 49394-3) 105.9 mL/min/1.73m2 CKD-EPI eGFR (2020). Assuming creatinine has been stable day-to-day for at least three months, the eGFR indicates Category G1 (>= 90 mL/min/1.73 m2) Lab Interpretation (test code = 24512-3) [facility], Zdmgt4523-81-23 20:48:07* Test Item Value Reference Range Interpretation Comme nts LIPASE (test code = 8537458477) 134 U/L 0-220 Lab Interpretation (test cod e = 79641-9) Normal [facility] PasoCBC with Rwbasoxdgdkq4570-42-37 20:20:02* Test Item Value Reference Range Interpretation Comme nts WBC (test code = 6690-2) 6.91 See_Comment [Automated messa ge] The system which generated this result transmitted reference range: 4.20 - 10.70 10*3/?L. The reference range was not used to interpret this result as normal/abnormal. RBC (test code = 789-8) 5.49 See_Comment [Automated [employer] ge] The system which generated this result [...] 34.7 g/dL 31.2-35.0 RDW-SD (test code = 69398-2) 40.0 fL 38.5-51.6 RDW-CV (test code = 788-0) 12.7 % 12.1-15.4 PLT (test code = 777-3) 228 See_Comment [Automated [employer]] The system which generated this result transmitted reference range: 150 - 328 10*3/?L. The reference range was not used to interpret this result as normal/abnormal. MPV (test code = 53082-6) 9.5 fL 9.8-13.0 L NRBC/100 WBC (test code = 7399105886) 0.0 See_Comment [Automated [employer] ssage] The system which generated this result transmitted reference range: 0.0 - 10.0 /100 WBCs. The reference range was not used to interpret this result as normal/abnormal. NRBC x10^3 (test code = 5256245507) See_Comment [Automated [employer]] The system which generated this result transmitted reference range: 10*3/?L. The reference range was not used to interpret this result as normal/abnormal. GRAN MAT (NEUT) % (test code = 770-8) 46.9 % IMM GRAN % (test code = 0658101549) 0.30 % LYMPH % (test code = 736-9) 42.3 % MONO % (test code = 5905-5) 9.8 % EOS % (test code = 713-8) 0.4 % BASO % (test code = 706-2) 0.3 % GRAN MAT x10^3(ANC) (test code = 4012397761) 3.24 10*3/uL 1.99-6.95 IMM GRAN x10^3 (test code = 5289551181) 0.00-0.06 LYMPH x10^3 (test code = 731-0) 2.92 10*3/uL 1.09-3.23 MONO x10^3 (test code = 742-7) 0.68 10*3/uL 0.36-1.02 EOS x10^3 (test code = 711-2) 0.03 10*3/uL 0.06-0.53 L BASO x10^3 (test code = 704-7) 0.01-0.09 Lab Interpretation (test code = 28434-8) [facility] W/AZMH3531-60-54 08:28:00 [facility] 1970 Sex: M PatientName: NOAH PUTNAM Unit No: [id number] EXAMS: CPT CODE: [id number] CT ABD PELVIS W/CONT 10616 EXAM: - CT ABD PELVIS W/CONT INDICATION: [...] extraluminal fluid. IMPRESSION: 1. No acute abnormality. [facility] Ji NAME: NOAH PUTNAM [address] PHYS: INGA. - Paul,[place] [address] : 1970 AGE: 52 SEX: M LOC: [facility] PHONE #: [phone] EXAM DATE: 07/23/2023 STATUS: REG ER FAX #: [phone] RAD #: D/C DT PAGE 1 Signed Report (CONTINUED) Patient Name: NOAH PUTNAM Unit No: [id number] EXAMS: CPT CODE: [id number] CT ABD PELVIS W/CONT 83804 (Continued) at 0828 Reported and signed by: Kiara Meza MD CC: Kristian Paul MD Technologist: Jovanni GREEN CTDI: DLP: Trnscrpt: 07/23/2023 (08) ValerioCB5 [facility] NAME: NOAH PUTNAM [address] PHYS: INGA. - Paul,[place] [address] : 1970 AGE: 52 SEX: M LOC: [facility] PHONE#: [phone] EXAM DATE: 07/23/2023 STATUS: REG ER FAX #: [phone] RAD #: D/C DT PAGE 2 Signed Report Patient Name: NOAH PUTNAM Unit No: [id number] EXAMS: CPT CODE: [id number] CT ABD PELVIS W/CONT 22117 (Continued) Orig Print D/T: S: 07/23/2023 (0831) [facility] NAME: NOAH PUTNAM [id number] PHYS: IN[address] [place] [address] : 1970 AGE: 52 SEX: M LOC: [facility] PHONE #: [phone] EXAM DATE: 07/23/2023 STATUS: REG ER FAX #: [phone] RAD #: D/C DT PAGE 3 Signed ReportURINALYSIS FTEFBQOG2517-58-38 06:32:00* Test Item Value Reference Range Interpretation [...] /mm3 NEGATIVE SOURCE OF URINE: CLEAN CATCHUA [id number] 06:32:00* Test Item Value Reference Range Interpretation Comme nts UA RBC (test code = RBCU) 3-5 RBC/HPF 0-3 A UA WBC (test code = XWBCU) 0-3 WBC/HPF 0-5 UA EPITHELIAL CELLS (test co de = EPIU) RARE EPI/HPF FEW UA BACTERIA (test code = XBACU) FEW NONE UA MUCUS (test code = MUCU) MODERATE #/LPF NONE A SOURCE OF URINE: CLEAN CATCHBASIC METABOLIC [id number] 06:31:00* Test Item Value Reference Range Interpretation [...] CA) 9.5 MG/DL 8.4-10.2 N HEPATIC FUNCTION [id number] 06:31:00* Test Item Value Reference Range Interpretation [...] code = ALKP) 57 UNITS/L 38-126 N [id number] 06:31:00* Test Item Value Reference Range Interpretation Comme nts LIPASE (test code = LIP) 94 UNITS/L 23-300 N [id number] 06:31:00* Test Item Value Reference Range Interpretation [facility] TROPONIN-I (test code = TROPI) 0.019 NG/ML 0.012-0.033 N PROTHROMBIN [id number] 06:07:00* Test Item Value Reference Range Interpretation [facility] PATIENT (test code = PTP) [...] systemic embolism. 3.0 - 4.5 CBC W/O [id number] 06:00:00* Test Item Value Reference Range Interpretation [facility] WHITE BLOOD CELL (test code = WBC) [...] = NRBC#) 0.00 K/mm3 0.0-0.1 N Troponin [id number] 02:46:51* Test Item Value Reference Range Interpretation Comme nts TROPONIN I (test code = 1830029188) 0.017 ng/mL <=0.034 KRYSTLE (test code = [...] of biotin. Lab Interpretation (test code = 65602-8) [id number]35:28* Test Item Value Reference Range Interpretation Comme nts NA (test code = 1859802373) 138 mmol/L 135-145 K (test code = 5904102627) 3.7 mmol/L 3.5-5.0 CL (test code = 9627239630) 106 mmol/L 98-108 CO2 TOTAL (test code = 1680875149) 24 mmol/L 23-31 AGAP (test code = 7958505690) 8 2-16 BUN (test code = 7221456811) 11 mg/dL 7-23 GLUCOSE (test code = 1216243081) 165 mg/dL 70-110 H CREATININE (test code = 3774757372) 0.89 mg/dL 0.60-1.25 TOTAL BILI (test code = 1578077369) 0.2 mg/dL 0.1-1.1 CALCIUM (test code = 7237672094) 9.3 mg/dL 8.6-10.6 T PROTEIN (test code = 6646749534) 7.0 g/dL 6.3-8.2 ALBUMIN (test code = 4293510792) 4.0 g/dL 3.5-5.0 ALK PHOS (test code = 7095998210) 59 U/L 34-122 ALTv (test code = 1742-6) 23 U/L 5-50 AST(SGOT) (test code = 5504943102) 27 U/L 13-40 eGFR (test code = 5150179205) 90.5 mL/min/1.73m2 KRYSTLE (test code = KRYSTLE) [...] imaging tests). Lab Interpretation (test code = 06871-3) Abnormal [facility] with [id number] 02:26:10* Test Item Value Reference Range Interpretation Comme nts WBC (test code = 6690-2) 5.78 See_Comment [[employer]] The system which generated this result transmitted reference range: 4.20 - 10.70 10*3/?L. The reference range was not used to interpret this result as normal/abnormal. RBC (test code = 789-8) 4.59 See_Comment [[employer]] The system which generated this result [...] g/dL 31.2-35.0 H RDW-SD (test code = 37728-5) 38.6 fL 38.5-51.6 RDW-CV (test code = 788-0) 12.6 % 12.1-15.4 PLT (test code = 777-3) 200 See_Comment [Automated [employer]] The system which generated this result transmitted reference range: 150 - 328 10*3/?L. The reference range was not used to interpret this result as normal/abnormal. MPV (test code = 55438-4) 9.6 fL 9.8-13.0 L NRBC/100 WBC (test code = 3932095360) 0.0 See_Comment [Automated [employer] ssage] The system which generated this result transmitted reference range: 0.0 - 10.0 /100 WBCs. The reference range was not used to interpret this result as normal/abnormal. NRBC x10^3 (test code = 4220007715) See_Comment [Automated messa ge] The system which generated this result transmitted reference range: 10*3/?L. The reference range was not used to interpret this result as normal/abnormal. GRAN MAT (NEUT) % (test code = 770-8) 36.8 % IMM GRAN % (test code = 8673697361) 0.20 % LYMPH % (test code = 736-9) 54.7 % MONO % (test code = 5905-5) 7.1 % EOS % (test code = 713-8) 0.9 % BASO % (test code = 706-2) 0.3 % GRAN MAT x10^3(ANC) (test code = 9158423020) 2.13 10*3/uL 1.99-6.95 IMM GRAN x10^3 (test code = 6344993928) 0.00-0.06 LYMPH x10^3 (test code = 731-0) 3.16 10*3/uL 1.09-3.23 MONO x10^3 (test code = 742-7) 0.41 10*3/uL 0.36-1.02 EOS x10^3 (test code = 711-2) 0.05 10*3/uL 0.06-0.53 L BASO x10^3 (test code = 704-7) 0.01-0.09 Lab Interpretation (test code = 48529-3) Abnormal [facility]. METABOLIC PANEL (15626)2023-07-03 10:47:01* Test Item Value Reference Range Interpretation Comme nts NA (test code = 6635012413) 138 mmol/L 135-145 K (test code = 7561459628) 4.5 mmol/L 3.5-5.0 Slight hemolysis CL (test code = 5379174372) 103 mmol/L 98-108 CO2 TOTAL (test code = 9180281089) 23 mmol/L 23-31 AGAP (test code = 9686754890) 12 2-16 BUN (test code = 0858664694) 16 mg/dL 7-23 Slight hemolysis GLUCOSE (test code = 3247216766) 142 mg/dL 70-110 H CREATININE (test code = 5941421051) 0.99 mg/dL 0.60-1.25 TOTAL BILI (test code = 7008654395) 1.2 mg/dL 0.1-1.1 H CALCIUM (test code = 8855872745) 9.6 mg/dL 8.6-10.6 T PROTEIN (test code = 3789911889) 8.1 g/dL 6.3-8.2 ALBUMIN (test code = 8454806906) 4.6 g/dL 3.5-5.0 ALK PHOS (test code = 5377098225) 51 U/L 34-122 Slight hemolysis ALTv (test code = 1742-6) 26 U/L 5-50 AST(SGOT) (test code = 5600386788) 32 U/L 13-40 Slight hemolysis eGFR (test code = 8805870374) 80.0 mL/min/1.73m2 KRYSTLE (test code = KRYSTLE) [...] imaging tests). Lab Interpretation (test code = 21247-0) [facility] 10[facility]* Test Item Value Reference Range Interpretation Comme nts LIPASE (test code = 0123189441) 955 U/L 0-220 H Lab Interpretation (test cod e = 60131-6) [facility] [id number] 10:27:34* Test Item Value Reference Range Interpretation [...] 34.5 g/dL 31.2-35.0 RDW-SD (test code = 46287-7) 39.4 fL 38.5-51.6 RDW-CV (test code = 788-0) 12.3 % 12.1-15.4 PLT (test code = 777-3) 226 See_Comment [Automated messa ge] The system which generated this result transmitted reference range: 150 - 328 10*3/?L. The reference range was not used to interpret this result as normal/abnormal. MPV (test code = 36225-2) 9.6 fL 9.8-13.0 L NRBC/100 WBC (test code = 5481088134) 0.0 See_Comment [Automated [employer] ssage] The system which generated this result transmitted reference range: 0.0 - 10.0 /100 WBCs. The reference range was not used to interpret this result as normal/abnormal. NRBC x10^3 (test code = 6423935270) See_Comment [Automated messa ge] The system which generated this result transmitted reference range: 10*3/?L. The reference range was not used to interpret this result as normal/abnormal. GRAN MAT (NEUT) % (test code = 770-8) 54.9 % IMM GRAN % (test code = 6651080679) 0.20 % LYMPH % (test code = 736-9) 36.2 % MONO % (test code = 5905-5) 7.9 % EOS % (test code = 713-8) 0.5 % BASO % (test code = 706-2) 0.3 % GRAN MAT x10^3(ANC) (test code = 2964624106) 3.63 10*3/uL 1.99-6.95 IMM GRAN x10^3 (test code = 1848729439) 0.00-0.06 LYMPH x10^3 (test code = 731-0) 2.39 10*3/uL 1.09-3.23 MONO x10^3 (test code = 742-7) 0.52 10*3/uL 0.36-1.02 EOS x10^3 (test code = 711-2) 0.03 10*3/uL 0.06-0.53 L BASO x10^3 (test code = 704-7) 0.01-0.09 Lab Interpretation (test code = 92017-6) [facility] [id number] 00:06:00 [facility] 1970 Sex: M Patient Name: NOAH PUTNAM Unit No: [id number] EXAMS: CPT CODE: [id number] CT ABD PELVIS W/CONT 28821 Reason: diffuse abd pain CT Scan of [...] Jennifer Bass MD CC: Kristian Gleason DO; [facility] Technologist: Cory SCHOFIELD Trscrpt Dt/ (000)t.[email or web address] Orig Print D/T: S: 07/02/2023 (000) CTDI: DLP: [place] FSED NAME: NOAH PUTNAM [address] [place] [address] PHYS: MANOLO.Naomi - Kristian Gleason [address] : 1970 AGE: 52 SEX: M [place], [place] [address] LOC: D.PER PHONE #: [phone] EXAM DATE: 07/01/2023 STATUS: REG ER FAX #: RAD NO:DC Dt: PAGE 1 Signed ReportTROP-I HIGH [id number] 23:55:00* Test Item Value Reference Range Interpretation [...] troponin from other clinical conditions, the Fourth [place] Definition of Myocardial Infarction stresses clinical assessment and demonstration of a rise and/or fall in serial troponin results above the upper reference limit.Results of this assay method may be falsely depressed orelevated if patient is taking high doses of Biotin. BASIC METABOLIC [id number] 23:55:00* Test Item Value Reference Range Interpretation [...] CA) 9.3 MG/DL 8.7-10.5 N HEPATIC FUNCTION [id number] 23:55:00* Test Item Value Reference Range Interpretation [...] code = ALKP) 60 Units/L 50-136 N [id number] 23:55:00* Test Item Value Reference Range Interpretation Comme nts LIPASE (test code = LIP) 259 U/L 16-77 H New Reference Ranges of 16-77 U/L please reviewrevised from 73-393 U/L on 06/30/2023 CBC W/AUTO [id number] 23:24:00* Test Item Value Reference Range Interpretation [...] = BA#) 0.02 x10 3/uL 0.0-0.2 N [id number] 12:29:00* Test Item Value Reference Range Interpretation Comme [facility] LIPASE (test code = LIP) 73 Units/L 73-393 N [id number] 17:24:56* Test Item Value Reference Range Interpretation Comme [facility] LIPASE (test code = 1944029012) 283 U/L 0-220 H Lab Interpretation (test cod e = 80546-5) Abnormal [facility] METABOLIC PANEL (NA, K, CL, CO2, GLUCOSE, BUN, CREATININE, CA)2023-04-22 17:24:35* Test Item Value Reference Range Interpretation Comme nts NA (test code = 6424242144) 139 mmol/L 135-145 K (test code = 4022091281) 4.0 mmol/L 3.5-5.0 CL (test code = 5684927901) 106 mmol/L 98-108 CO2 TOTAL (test code = 3413431168) 25 mmol/L 23-31 AGAP (test code = 2151516201) 8 2-16 BUN (test code = 4210878804) 21 mg/dL 7-23 GLUCOSE (test code = 0234166917) 110 mg/dL 70-110 CREATININE (test code = 1531218886) 1.06 mg/dL 0.60-1.25 CALCIUM (test code = 3030405720) 8.1 mg/dL 8.6-10.6 L eGFR (test code = 4238252291) 74.0 mL/min/1.73m2 KRYSTLE (test code = KRYSTLE) [...] imaging tests). Lab Interpretation (test code = 25591-2) [facility] [id number] 13:57:28* Test Item Value Reference Range Interpretation Comme nts CK (test code = 2694297251) 635 U/L 33-194 H Lab Interpretation (test cod e = 07270-8) [facility] (NA, K, CL, CO2, GLUCOSE, BUN, CREATININE, CA)2023-04-22 13:23:02* Test Item Value Reference Range Interpretation Comme nts NA (test code = 8487623411) 141 mmol/L 135-145 K (test code = 4655577510) 4.0 mmol/L 3.5-5.0 CL (test code = 7338204337) 107 mmol/L 98-108 CO2 TOTAL (test code = 0632185252) 27 mmol/L 23-31 AGAP (test code = 1858254808) 7 2-16 BUN (test code = 7044865259) 22 mg/dL 7-23 GLUCOSE (test code = 9609882294) 94 mg/dL 70-110 CREATININE (test code = 1391755804) 1.26 mg/dL 0.60-1.25 H CALCIUM (test code = 5714219764) 8.3 mg/dL 8.6-10.6 L eGFR (test code = 1532235358) 60.6 mL/min/1.73m2 KRYSTLE (test code = KRYSTLE) [...] imaging tests). Lab Interpretation (test code = 81204-4) [facility]23-[facility]09 13:22:41* Test Item Value Reference Range Interpretation Comme nts LIPASE (test code = 0956407166) 897 U/L 0-220 H Lab Interpretation (test cod e = 61738-0) [facility] MET[facility]OLIC PANEL (30738)2023-04-22 09:43:42* Test Item Value Reference Range Interpretation Comme nts NA (test code = 0164975955) 140 mmol/L 135-145 K (test code = 1246627237) 3.7 mmol/L 3.5-5.0 CL (test code = 5757286179) 103 mmol/L 98-108 CO2 TOTAL (test code = 2618851194) 24 mmol/L 23-31 AGAP (test code = 4638001299) 13 2-16 BUN (test code = 2744366608) 24 mg/dL 7-23 H GLUCOSE (test code = 4034287242) 114 mg/dL 70-110 H CREATININE (test code = 5485085094) 1.42 mg/dL 0.60-1.25 H TOTAL BILI (test code = 7427342790) 0.9 mg/dL 0.1-1.1 CALCIUM (test code = 2870587472) 9.5 mg/dL 8.6-10.6 T PROTEIN (test code = 3848824096) 9.2 g/dL 6.3-8.2 H ALBUMIN (test code = 0857405950) 4.9 g/dL 3.5-5.0 ALK PHOS (test code = 8645953635) 66 U/L 34-122 ALTv (test code = 1742-6) 25 U/L 5-50 AST(SGOT) (test code = 5763400236) 37 U/L 13-40 eGFR (test code = 7814663901) 52.8 mL/min/1.73m2 KRYSTLE (test code = KRYSTLE) [...] imaging tests). Lab Interpretation (test code = 19825-2) Abnormal [facility] WITH [id number] 09:33:37* Test Item Value Reference Range Interpretation Comme nts WBC (test code = 6690-2) 8.53 See_Comment [Automated [employer]] The system which generated this result transmitted [...] g/dL 31.2-35.0 H RDW-SD (test code = 57747-7) 40.1 fL 38.5-51.6 RDW-CV (test code = 788-0) 13.0 % 12.1-15.4 PLT (test code = 777-3) 267 See_Comment [[employer]ated [employer]] The system which generated this result transmitted reference range: 150 - 328 10*3/?L. The reference range was not used to interpret this result as normal/abnormal. MPV (test code = 78341-7) 9.6 fL 9.8-13.0 L NRBC/100 WBC (test code = 1906142414) 0.0 See_Comment [Automated [employer] ssage] The system which generated this result transmitted reference range: 0.0 - 10.0 /100 WBCs. The reference range was not used to interpret this result as normal/abnormal. NRBC x10^3 (test code = 7902268119) See_Comment [Automated [employer]] The system which generated this result transmitted reference range: 10*3/?L. The reference range was not used to interpret this result as normal/abnormal. GRAN MAT (NEUT) % (test code = 770-8) 44.5 % IMM GRAN % (test code = 6602655194) 0.20 % LYMPH % (test code = 736-9) 43.4 % MONO % (test code = 5905-5) 10.7 % EOS % (test code = 713-8) 0.8 % BASO % (test code = 706-2) 0.4 % GRAN MAT x10^3(ANC) (test code = 4349326076) 3.80 10*3/uL 1.99-6.95 IMM GRAN x10^3 (test code = 8935624088) 0.00-0.06 LYMPH x10^3 (test code = 731-0) 3.70 10*3/uL 1.09-3.23 H MONO x10^3 (test code = 742-7) 0.91 10*3/uL 0.36-1.02 EOS x10^3 (test code = 711-2) 0.07 10*3/uL 0.06-0.53 BASO x10^3 (test code = 704-7) 0.03 10*3/uL 0.01-0.09 Lab Interpretation (test code = 23110-7) Abnormal [facility] [id number] 13:23:31* Test Item Value Reference Range Interpretation Comme nts TROPONIN I (test code = 5814743555) 0.020 ng/mL <=0.034 KRYSTLE (test code = [...] of biotin. Lab Interpretation (test code = 06008-3) Normal [facility] [id number] 13:23:31* Test Item Value Reference Range Interpretation Comme nts TROPONIN I (test code = 1292115941) 0.020 ng/mL <=0.034 KRYSTLE (test code = [...] of biotin. Lab Interpretation (test code = 22027-7) Normal [facility]. METABOLIC PANEL (79641)2023-04-16 12:58:04* Test Item Value Reference Range Interpretation Comme nts NA (test code = 0419296801) 142 mmol/L 135-145 K (test code = 1916857911) 4.0 mmol/L 3.5-5.0 CL (test code = 0352916003) 105 mmol/L 98-108 CO2 TOTAL (test code = 8169555307) 28 mmol/L 23-31 AGAP (test code = 9642361468) 9 2-16 BUN (test code = 0008023345) 11 mg/dL 7-23 GLUCOSE (test code = 6558925706) 115 mg/dL 70-110 H CREATININE (test code = 6112353504) 0.85 mg/dL 0.60-1.25 TOTAL BILI (test code = 4349993434) 0.4 mg/dL 0.1-1.1 CALCIUM (test code = 1788593734) 9.2 mg/dL 8.6-10.6 T PROTEIN (test code = 7828593428) 7.6 g/dL 6.3-8.2 ALBUMIN (test code = 4891612935) 4.4 g/dL 3.5-5.0 ALK PHOS (test code = 0303464934) 52 U/L 34-122 ALTv (test code = 1742-6) 23 U/L 5-50 AST(SGOT) (test code = 9493763771) 33 U/L 13-40 eGFR (test code = 1670775003) 95.4 mL/min/1.73m2 KRYSTLE (test code = KRYSTLE) [...] imaging tests). Lab Interpretation (test code = 05468-3) [facility] 12:58:04* Test Item Value Reference Range Interpretation Comme nts LIPASE (test code = 8522321783) 492 U/L 0-220 H Lab Interpretation (test cod e = 56564-9) [facility]OL[facility] (60842)2023-04-16 12:58:04* Test Item Value Reference Range Interpretation Comme nts NA (test code = 5217977961) 142 mmol/L 135-145 K (test code = 3033449761) 4.0 mmol/L 3.5-5.0 CL (test code = 3574722795) 105 mmol/L 98-108 CO2 TOTAL (test code = 7562661128) 28 mmol/L 23-31 AGAP (test code = 4196816867) 9 2-16 BUN (test code = 7871772339) 11 mg/dL 7-23 GLUCOSE (test code = 2226100848) 115 mg/dL 70-110 H CREATININE (test code = 7806674377) 0.85 mg/dL 0.60-1.25 TOTAL BILI (test code = 8913404708) 0.4 mg/dL 0.1-1.1 CALCIUM (test code = 7639736355) 9.2 mg/dL 8.6-10.6 T PROTEIN (test code = 7639107465) 7.6 g/dL 6.3-8.2 ALBUMIN (test code = 4389074008) 4.4 g/dL 3.5-5.0 ALK PHOS (test code = 5174954730) 52 U/L 34-122 ALTv (test code = 1742-6) 23 U/L 5-50 AST(SGOT) (test code = 3696028341) 33 U/L 13-40 eGFR (test code = 6799397694) 95.4 mL/min/1.73m2 KRYSTLE (test code = KRYSTLE) [...] imaging tests). Lab Interpretation (test code = 74412-4) [facility] 12:58:04* Test Item Value Reference Range Interpretation Comme nts LIPASE (test code = 9488732255) 492 U/L 0-220 H Lab Interpretation (test cod e = 91955-1) [facility] [id number] 12:50:01* Test Item Value Reference Range Interpretation Comme nts WBC (test code = 6690-2) 6.75 See_Comment [Automated messa ge] The system which generated this result transmitted reference range: 4.20 - 10.70 10*3/?L. The reference range was not used to interpret this result as normal/abnormal. RBC (test code = 789-8) 5.08 See_Comment [[employer]ated [employer]] The system which generated this result [...] 34.9 g/dL 31.2-35.0 RDW-SD (test code = 03194-6) 41.4 fL 38.5-51.6 RDW-CV (test code = 788-0) 13.2 % 12.1-15.4 PLT (test code = 777-3) 219 See_Comment [Automated messa ge] The system which generated this result transmitted reference range: 150 - 328 10*3/?L. The reference range was not used to interpret this result as normal/abnormal. MPV (test code = 83322-6) 9.5 fL 9.8-13.0 L NRBC/100 WBC (test code = 0002514681) 0.0 See_Comment [Automated [employer] ssage] The system which generated this result transmitted reference range: 0.0 - 10.0 /100 WBCs. The reference range was not used to interpret this result as normal/abnormal. NRBC x10^3 (test code = 4512156907) See_Comment [Automated messa ge] The system which generated this result transmitted reference range: 10*3/?L. The reference range was not used to interpret this result as normal/abnormal. GRAN MAT (NEUT) % (test code = 770-8) 46.9 % IMM GRAN % (test code = 7631680636) 0.10 % LYMPH % (test code = 736-9) 43.4 % MONO % (test code = 5905-5) 8.4 % EOS % (test code = 713-8) 0.9 % BASO % (test code = 706-2) 0.3 % GRAN MAT x10^3(ANC) (test code = 8344820137) 3.16 10*3/uL 1.99-6.95 IMM GRAN x10^3 (test code = 5130128363) 0.00-0.06 LYMPH x10^3 (test code = 731-0) 2.93 10*3/uL 1.09-3.23 MONO x10^3 (test code = 742-7) 0.57 10*3/uL 0.36-1.02 EOS x10^3 (test code = 711-2) 0.06 10*3/uL 0.06-0.53 BASO x10^3 (test code = 704-7) 0.01-0.09 Lab Interpretation (test code = 49211-2) Abnormal [facility] WITH [id number] 12:50:01* Test Item Value Reference Range Interpretation [...] 34.9 g/dL 31.2-35.0 RDW-SD (test code = 76884-2) 41.4 fL 38.5-51.6 RDW-CV (test code = 788-0) 13.2 % 12.1-15.4 PLT (test code = 777-3) 219 See_Comment [Automated [employer]] The system which generated this result transmitted reference range: 150 - 328 10*3/?L. The reference range was not used to interpret this result as normal/abnormal. MPV (test code = 29606-1) 9.5 fL 9.8-13.0 L NRBC/100 WBC (test code = 7073013608) 0.0 See_Comment [Automated [employer] ssage] The system which generated this result transmitted reference range: 0.0 - 10.0 /100 WBCs. The reference range was not used to interpret this result as normal/abnormal. NRBC x10^3 (test code = 6900304507) See_Comment [Automated [employer]] The system which generated this result transmitted reference range: 10*3/?L. The reference range was not used to interpret this result as normal/abnormal. GRAN MAT (NEUT) % (test code = 770-8) 46.9 % IMM GRAN % (test code = 2460151026) 0.10 % LYMPH % (test code = 736-9) 43.4 % MONO % (test code = 5905-5) 8.4 % EOS % (test code = 713-8) 0.9 % BASO % (test code = 706-2) 0.3 % GRAN MAT x10^3(ANC) (test code = 9043253429) 3.16 10*3/uL 1.99-6.95 IMM GRAN x10^3 (test code = 9518907539) 0.00-0.06 LYMPH x10^3 (test code = 731-0) 2.93 10*3/uL 1.09-3.23 MONO x10^3 (test code = 742-7) 0.57 10*3/uL 0.36-1.02 EOS x10^3 (test code = 711-2) 0.06 10*3/uL 0.06-0.53 BASO x10^3 (test code = 704-7) 0.01-0.09 Lab Interpretation (test code = 73989-1) [facility] 21:02:35* Test Item Value Reference Range Interpretation Comme nts POCT GLU (test code = 7055074611) 118 mg/dL 70-110 H Lab Interpretation (test cod e = 83462-5) Abnormal [facility] WITH [id number] 05:51:48* Test Item Value Reference Range Interpretation [...] 34.4 g/dL 31.2-35.0 RDW-SD (test code = 77193-5) 38.5 fL 38.5-51.6 RDW-CV (test code = 788-0) 12.5 % 12.1-15.4 PLT (test code = 777-3) 216 See_Comment [Automated messa ge] The system which generated this result transmitted reference range: 150 - 328 10*3/?L. The reference range was not used to interpret this result as normal/abnormal. MPV (test code = 54492-6) 10.0 fL 9.8-13.0 NRBC/100 WBC (test code = 4041772633) 0.0 See_Comment [Automated me ssage] The system which generated this result transmitted reference range: 0.0 - 10.0 /100 WBCs. The reference range was not used to interpret this result as normal/abnormal. NRBC x10^3 (test code = 8525858189) See_Comment [Automated messa ge] The system which generated this result transmitted reference range: 10*3/?L. The reference range was not used to interpret this result as normal/abnormal. SEG % (test code = 28654-6) 36 % 33-76 LYMPH % (test code = 51261-0) 48 % 14-54 MONO % (test code = 22619-8) 13 % 0-4 H EOS % (test code = 56836-1) 3 % 0-3 ANC (test code = 753-4) 2.75 10*3/uL 1.99-6.95 Lab Interpretation (test code = 95321-4) Abnormal [facility]. METABOLIC PANEL (86763)2022-12-09 05:24:19* Test Item Value Reference Range Interpretation Comme nts NA (test code = 4781006040) 139 mmol/L 135-145 K (test code = 0971927274) 3.8 mmol/L 3.5-5.0 CL (test code = 4391419533) 105 mmol/L 98-108 CO2 TOTAL (test code = 2517699677) 24 mmol/L 23-31 AGAP (test code = 6830524382) 10 2-16 BUN (test code = 4941008820) 11 mg/dL 7-23 GLUCOSE (test code = 2061103262) 115 mg/dL 70-110 H CREATININE (test code = 3865043579) 0.93 mg/dL 0.60-1.25 TOTAL BILI (test code = 4561937062) 0.8 mg/dL 0.1-1.1 CALCIUM (test code = 1019095860) 9.3 mg/dL 8.6-10.6 T PROTEIN (test code = 2687095392) 8.0 g/dL 6.3-8.2 ALBUMIN (test code = 5016107014) 4.5 g/dL 3.5-5.0 ALK PHOS (test code = 6117492955) 50 U/L 34-122 ALTv (test code = 1742-6) 22 U/L 5-50 AST(SGOT) (test code = 4354489578) 36 U/L 13-40 eGFR (test code = 9959998557) 86.0 mL/min/1.73m2 KRYSTLE (test code = KRYSTLE) [...] imaging tests). Lab Interpretation (test code = 30230-9) [facility] 05:24:18* Test Item Value Reference Range Interpretation Comme nts LIPASE (test code = 2996004569) 271 U/L 0-220 H Lab Interpretation (test cod e = 19731-8) Abnormal [facility] with [id number] 22:09:52* Test Item Value Reference Range Interpretation [...] g/dL 31.2-35.0 H RDW-SD (test code = 33374-1) 39.2 fL 38.5-51.6 RDW-CV (test code = 788-0) 12.9 % 12.1-15.4 PLT (test code = 777-3) See_Comment [Automated messa ge] The system which generated this result transmitted reference range: 150 - 328 10*3/?L. The reference range was not used to interpret this result as normal/abnormal. MPV (test code = 07135-1) 9.0 fL 9.8-13.0 L NRBC/100 WBC (test code = 8313008852) See_Comment [Automated [employer] ssage] The system which generated this result transmitted reference range: 0.0 - 10.0 /100 WBCs. The reference range was not used to interpret this result as normal/abnormal. NRBC x10^3 (test code = 0402230609) See_Comment [Automated messa ge] The system which generated this result transmitted reference range: 10*3/?L. The reference range was not used to interpret this result as normal/abnormal. GRAN MAT (NEUT) % (test code = 770-8) 35.3 % IMM GRAN % (test code = 7930584356) 0.00 % LYMPH % (test code = 736-9) 56.0 % MONO % (test code = 5905-5) 7.9 % EOS % (test code = 713-8) 0.4 % BASO % (test code = 706-2) 0.4 % GRAN MAT x10^3(ANC) (test code = 9702737982) 1.87 10*3/uL 1.99-6.95 L IMM GRAN x10^3 (test code = 5593107149) 0.00-0.06 LYMPH x10^3 (test code = 731-0) 2.97 10*3/uL 1.09-3.23 MONO x10^3 (test code = 742-7) 0.42 10*3/uL 0.36-1.02 EOS x10^3 (test code = 711-2) 0.06-0.53 L BASO x10^3 (test code = 704-7) 0.01-0.09 Lab Interpretation (test code = 71852-5) Abnormal [facility] METABOLIC PANEL (NA, K, CL, CO2, GLUCOSE, BUN, CREATININE, CA)2022-10-12 00:25:13* Test Item Value Reference Range Interpretation Comme nts NA (test code = 2606867079) 136 mmol/L 135-145 K (test code = 3274111941) 3.5 mmol/L 3.5-5.0 CL (test code = 1438186186) 103 mmol/L 98-108 CO2 TOTAL (test code = 6866778009) 26 mmol/L 23-31 AGAP (test code = 1572809509) 2-16 BUN (test code = 3522428363) 14 mg/dL 7-23 GLUCOSE (test code = 3544519932) 157 mg/dL 70-110 H CREATININE (test code = 9337478598) 0.80 mg/dL 0.60-1.25 CALCIUM (test code = 2125115122) 8.4 mg/dL 8.6-10.6 L eGFR (test code = 8672311043) mL/min/1.73m2 KRYSTLE (test code = KRYSTLE) Association [...] imaging tests). Lab Interpretation (test code = 80239-2) [facility] (ALB,T.PRO,BILI T,BU/BC,ALT,AST,ALK PHOS)2022-10-12 00:25:13* Test Item Value Reference Range Interpretation Comme nts TOTAL BILI (test code = 9953154271) 1.2 mg/dL 0.1-1.1 H BILI UNCON (test code = 3278854030) 1.0 mg/dL 0.1-1.1 BILI CONJ (test code = 8443507829) 0.0 mg/dL 0.0-0.3 T PROTEIN (test code = 5653533091) 7.1 g/dL 6.3-8.2 ALBUMIN (test code = 4715988546) 4.0 g/dL 3.5-5.0 ALK PHOS (test code = 2998523620) 59 U/L 34-122 ALTv (test code = 1742-6) 38 U/L 5-50 AST(SGOT) (test code = 8598368587) 61 U/L 13-40 H Lab Interpretation (test cod e = 28344-6) [facility] Only)2022-10-11 21:35:47* Test Item Value Reference Range Interpretation Comme nts ABO & RH (test code = 20) O Positive Performed at [facility] Laboratory Services - [facility] Blood [address] Free: [phone] No. [id number] [facility] - ONCE [id number] 21:25:51* Test Item Value Reference Range Interpretation Comme nts ABO & RH (test code = 20) O POSITIVE Performed at [facility] Laboratory Services - [facility] Blood [address] Free: [phone] No. [id number] IAT (test code = 1185) Negative Performed at [facility] Laboratory Services - [address] Free: [phone] No. [id number] [facility] [id number] 20:47:43* Test Item Value Reference Range Interpretation [...] g/dL 31.2-35.0 H RDW-SD (test code = 66405-7) 41.1 fL 38.5-51.6 RDW-CV (test code = 788-0) 13.2 % 12.1-15.4 PLT (test code = 777-3) See_Comment [Automated messa ge] The system which generated this result transmitted reference range: 150 - 328 10*3/?L. The reference range was not used to interpret this result as normal/abnormal. MPV (test code = 35187-0) 9.5 fL 9.8-13.0 L NRBC/100 WBC (test code = 1165880130) See_Comment [Automated [employer] ssage] The system which generated this result transmitted reference range: 0.0 - 10.0 /100 WBCs. The reference range was not used to interpret this result as normal/abnormal. NRBC x10^3 (test code = 6962333727) See_Comment [Automated messa ge] The system which generated this result transmitted reference range: 10*3/?L. The reference range was not used to interpret this result as normal/abnormal. GRAN MAT (NEUT) % (test code = 770-8) 38.2 % IMM GRAN % (test code = 6741902779) 0.00 % LYMPH % (test code = 736-9) 53.7 % MONO % (test code = 5905-5) 7.5 % EOS % (test code = 713-8) 0.3 % BASO % (test code = 706-2) 0.3 % GRAN MAT x10^3(ANC) (test code = 1521505503) 2.46 10*3/uL 1.99-6.95 IMM GRAN x10^3 (test code = 7966180122) 0.00-0.06 LYMPH x10^3 (test code = 731-0) 3.46 10*3/uL 1.09-3.23 H MONO x10^3 (test code = 742-7) 0.48 10*3/uL 0.36-1.02 EOS x10^3 (test code = 711-2) 0.06-0.53 L BASO x10^3 (test code = 704-7) 0.01-0.09 Lab Interpretation (test code = 39927-4) [facility]TOTAL CHOLESTEROL, TRIGLYCERIDES, HDL)2022-10-11 20:32:44* Test Item Value Reference Range Interpretation Comme nts CHOL (test code = 2603823742) 195 mg/dL 120-200 HDL (test code = 2052032874) 36 mg/dL See_Comment L [Automated [employer]] The system which generated this result transmitted reference range: >=40. The reference range was not used to interpret this result as normal/abnormal. HDLC RATIO (test code = 0731289368) See_Comment H [Automated [employer]] The system which generated this result transmitted reference range: <=5.0. The reference range was not used to interpret this result as normal/abnormal. TRIG (test code = 9278814003) 84 mg/dL 30-170 LDL CHOL (test code = 74569-8) 142 mg/dL See_Comment [Automated [employer]] The system which generated this result transmitted reference range: <=160. The reference range was not used to interpret this result as normal/abnormal. VLDL (test code = 8101791842) 17 mg/dL 5-60 Lab Interpretation (test code = 68308-4) [facility] [id number] 14:23:55* Test Item Value Reference Range Interpretation Comme nts NT-proBNP (test code = 6406346492) See_Comment [Automated message] The system which generated this result transmitted reference range: <=125. The reference range was not used to interpret this result as normal/abnormal. KRYSTLE (test code = KRYSTLE) Biotin has been reported to cause a negative bias, interpret results relative to patient's use of biotin. Lab Interpretation (test code = 20433-1) Normal [facility]ACTIV[facility] PART[facility] THRMPLAS [id number] 14:23:25* Test Item Value Reference Range Interpretation Comme nts APTT Patient (test code = 3173-2) See_Comment [Automated message] The system which generated this result transmitted reference range: 23 - 38 Seconds. The reference range was not used to interpret this result as normal/abnormal. KRYSTLE (test code = KRYSTLE) The [facility] patient population mean normal value for aPTT is 30 seconds. Lab Interpretation (test code = 20134-1) [facility]2023-01-28 14:23:05* Test Item Value Reference Range Interpretation Comme nts LIPASE (test code = 4503899112) 502 U/L 0-220 H Lab Interpretation (test cod e = 47173-8) [facility]OLIC PAN[facility] (91687)2022-10-11 14:23:05* Test Item Value Reference Range Interpretation Comme nts NA (test code = 6549851032) 139 mmol/L 135-145 K (test code = 0386953402) 5.0 mmol/L 3.5-5.0 Slight hemolysis CL (test code = 3245007131) 103 mmol/L 98-108 CO2 TOTAL (test code = 0740962320) 28 mmol/L 23-31 AGAP (test code = 0477932828) 2-16 BUN (test code = 0675555621) 17 mg/dL 7-23 Slight hemolysis GLUCOSE (test code = 7602296646) 103 mg/dL 70-110 CREATININE (test code = 9434124863) 0.80 mg/dL 0.60-1.25 TOTAL BILI (test code = 0048914849) 1.6 mg/dL 0.1-1.1 H CALCIUM (test code = 0007229796) 9.0 mg/dL 8.6-10.6 T PROTEIN (test code = 5710834203) 8.4 g/dL 6.3-8.2 H ALBUMIN (test code = 4905045504) 4.8 g/dL 3.5-5.0 ALK PHOS (test code = 5028190877) 57 U/L 34-122 Slight hemolysis ALTv (test code = 1742-6) 49 U/L 5-50 AST(SGOT) (test code = 5572548765) 77 U/L 13-40 H Slight hemolysis eGFR (test code = 3071292111) mL/min/1.73m2 KRYSTLE (test code = KRYSTLE) Association [...] imaging tests). Lab Interpretation (test code = 60795-8) [facility] PasoTRTONAN [id number] 14:23:05* Test Item Value Reference Range Interpretation Comments TROPONIN I (test code = 9976376233) 0.018 ng/mL See_Comment [Automated message] The system [...] of biotin. Lab Interpretation (test code = 86900-8) [facility] PasoPROTHROMBIN TIME / [id number] 14:20:24* Test Item Value Reference Range Interpretation Comme nts PROTIME PATIENT (test code = 5964-2) See_Comment [Automated [employer]] The system which generated this result transmitted reference range: 12.0 - 14.7 Seconds. The reference range was not used to interpret this result as normal/abnormal. INR (test code = 6301-6) Normal INR <1.1; Warfarin Therapeutic range 2.0 to 3.0 or 2.5 to 3.5, depending upon the indications. Lab Interpretation (test code = 73675-3) [facility] PasoCBC WITH [id number] 13:55:05* Test Item Value Reference Range Interpretation Comme nts WBC (test code = 6690-2) See_Comment [Automated [employer]] The system which generated this result transmitted reference range: 4.20 - 10.70 10*3/?L. The reference range was not used to interpret this result as normal/abnormal. RBC (test code = 789-8) See_Comment [Automated [employer]] The system which generated this result transmitted [...] 34.9 g/dL 31.2-35.0 RDW-SD (test code = 19428-0) 40.4 fL 38.5-51.6 RDW-CV (test code = 788-0) 13.0 % 12.1-15.4 PLT (test code = 777-3) See_Comment [Automated messa ge] The system which generated this result transmitted reference range: 150 - 328 10*3/?L. The reference range was not used to interpret this result as normal/abnormal. MPV (test code = 69377-5) 9.1 fL 9.8-13.0 L NRBC/100 WBC (test code = 4372622749) See_Comment [Automated me ssage] The system which generated this result transmitted reference range: 0.0 - 10.0 /100 WBCs. The reference range was not used to interpret this result as normal/abnormal. NRBC x10^3 (test code = 6252821481) See_Comment [Automated messa ge] The system which generated this result transmitted reference range: 10*3/?L. The reference range was not used to interpret this result as normal/abnormal. GRAN MAT (NEUT) % (test code = 770-8) 53.2 % IMM GRAN % (test code = 3650256498) 0.10 % LYMPH % (test code = 736-9) 36.6 % MONO % (test code = 5905-5) 9.3 % EOS % (test code = 713-8) 0.5 % BASO % (test code = 706-2) 0.3 % GRAN MAT x10^3(ANC) (test code = 9642950268) 4.25 10*3/uL 1.99-6.95 IMM GRAN x10^3 (test code = 2318761275) 0.00-0.06 LYMPH x10^3 (test code = 731-0) 2.92 10*3/uL 1.09-3.23 MONO x10^3 (test code = 742-7) 0.74 10*3/uL 0.36-1.02 EOS x10^3 (test code = 711-2) 0.04 10*3/uL 0.06-0.53 L BASO x10^3 (test code = 704-7) 0.01-0.09 Lab Interpretation (test code = 28256-2) [facility] 13:23:22* Test Item Value Reference Range Interpretation Comme nts NA (test code = 5486630568) 138 mmol/L 135-145 K (test code = 4679633036) 4.5 mmol/L 3.5-5 CL (test code = 5013450573) 106 mmol/L 98-108 CO2 TOTAL (test code = 1445785796) 24 mmol/L 23-31 AGAP (test code = 6325896321) 2-16 BUN (test code = 8984374678) 18 mg/dL 7-23 GLUCOSE (test code = 4875112713) 97 mg/dL 70-110 CREATININE (test code = 2082256163) 0.98 mg/dL 0.6-1.25 TOTAL BILI (test code = 0894691055) 0.5 mg/dL 0.1-1.1 CALCIUM (test code = 6248318055) 9.3 mg/dL 8.6-10.6 T PROTEIN (test code = 7407342215) 7.3 g/dL 6.3-8.2 ALBUMIN (test code = 8087924715) 4.5 g/dL 3.5-5 ALK PHOS (test code = 3416996764) 65 U/L 34-122 ALTv (test code = 1742-6) 27 U/L 5-50 AST(SGOT) (test code = 7229145245) 33 U/L 13-40 eGFR (test code = 4065705857) mL/min/1.73m2 KRYSTLE (test code = KRYSTLE) Association [...] or urine or abnormalities in imaging tests). [facility]22-[facility]26 13:23:01* Test Item Value Reference Range Interpretation Comme nts LIPASE (test code = 4032509194) 596 U/L 0-220 H Lab Interpretation (test cod e = 43905-4) Abnormal [facility] WITH [id number] 13:09:00* Test Item Value Reference Range Interpretation Comme nts WBC (test code = 6690-2) See_Comment [Automated [employer]] The system which generated this result transmitted reference range: 4.20 - 10.70 10*3/?L. The reference range was not used to interpret this result as normal/abnormal. RBC (test code = 789-8) See_Comment [Automated [employer]] The system which generated this result transmitted [...] g/dL 31.2-35 H RDW-SD (test code = 08528-1) 38.3 fL 38.5-51.6 L RDW-CV (test code = 788-0) 12.3 % 12.1-15.4 PLT (test code = 777-3) See_Comment [Automated messa ge] The system which generated this result transmitted reference range: 150 - 328 10*3/?L. The reference range was not used to interpret this result as normal/abnormal. MPV (test code = 98151-0) 9.2 fL 9.8-13 L NRBC/100 WBC (test code = 3810490761) See_Comment [Automated [employer] ssage] The system which generated this result transmitted reference range: 0.0 - 10.0 /100 WBCs. The reference range was not used to interpret this result as normal/abnormal. NRBC x10^3 (test code = 0075968156) See_Comment [Automated messa ge] The system which generated this result transmitted reference range: 10*3/?L. The reference range was not used to interpret this result as normal/abnormal. GRAN MAT (NEUT) % (test code = 770-8) 47.3 % IMM GRAN % (test code = 5052276207) 0.30 % LYMPH % (test code = 736-9) 43.8 % MONO % (test code = 5905-5) 7.8 % EOS % (test code = 713-8) 0.5 % BASO % (test code = 706-2) 0.3 % GRAN MAT x10^3(ANC) (test code = 9431144366) 3.04 10*3/uL 1.99-6.95 IMM GRAN x10^3 (test code = 9038280177) 0-0.06 LYMPH x10^3 (test code = 731-0) 2.81 10*3/uL 1.09-3.23 MONO x10^3 (test code = 742-7) 0.50 10*3/uL 0.36-1.02 EOS x10^3 (test code = 711-2) 0.03 10*3/uL 0.06-0.53 L BASO x10^3 (test code = 704-7) 0.01-0.09 Lab Interpretation (test code = 28798-4) Abnormal [facility] METABOLIC PANEL (NA, K, CL, CO2, GLUCOSE, BUN, CREATININE, CA)2021-11-01 10:40:12* Test Item Value Reference Range Interpretation Comme nts NA (test code = 0729711629) 136 mmol/L 135-145 K (test code = 4570785382) 4.2 mmol/L 3.5-5.0 CL (test code = 7043199059) 104 mmol/L 98-108 CO2 TOTAL (test code = 3509588292) 31 mmol/L 23-31 AGAP (test code = 5489432092) 2-16 L BUN (test code = 2525565651) 15 mg/dL 7-23 GLUCOSE (test code = 2310511615) 91 mg/dL 70-110 CREATININE (test code = 8939643948) 0.96 mg/dL 0.60-1.25 CALCIUM (test code = 4056846052) 8.5 mg/dL 8.6-10.6 L eGFR (test code = 6584120721) mL/min/1.73m2 KRYSTLE (test code = KRYSTLE) Association [...] imaging tests). Lab Interpretation (test code = 24061-6) [facility]2022-[facility]-18 10:40:12* Test Item Value Reference Range Interpretation Comme nts MAGNESIUM (test code = 9135745736) 1.7 mg/dL 1.7-2.4 Lab Interpretation (test cod e = 70492-0) Normal [facility] PasoPHOSPHORUS2022-02-18 10:39:52* Test Item Value Reference Range Interpretation Comme nts PHOSPHORUS (test code = 1993457491) 4.4 mg/dL 2.5-5.0 Lab Interpretation (test cod e = 73827-2) Normal [facility] PasoCBC WITH [id number] 10:25:11* Test Item Value Reference Range Interpretation [...] 34.3 g/dL 31.2-35.0 RDW-SD (test code = 74652-9) 38.5 fL 38.5-51.6 RDW-CV (test code = 788-0) 12.3 % 12.1-15.4 PLT (test code = 777-3) See_Comment [Automated messa ge] The system which generated this result transmitted reference range: 150 - 328 10*3/?L. The reference range was not used to interpret this result as normal/abnormal. MPV (test code = 52380-2) 9.6 fL 9.8-13.0 L NRBC/100 WBC (test code = 1972078001) See_Comment [Automated me ssage] The system which generated this result transmitted reference range: 0.0 - 10.0 /100 WBCs. The reference range was not used to interpret this result as normal/abnormal. NRBC x10^3 (test code = 1195252468) <0.01 See_Comment [Automated messa ge] The system which generated this result transmitted reference range: 10*3/?L. The reference range was not used to interpret this result as normal/abnormal. GRAN MAT (NEUT) % (test code = 770-8) 49.5 % IMM GRAN % (test code = 4555235938) 0.30 % LYMPH % (test code = 736-9) 39.4 % MONO % (test code = 5905-5) 9.7 % EOS % (test code = 713-8) 0.8 % BASO % (test code = 706-2) 0.3 % GRAN MAT x10^3(ANC) (test code = 4250294108) 3.13 10*3/uL 1.99-6.95 IMM GRAN x10^3 (test code = 5782748081) <0.03 0.00-0.06 LYMPH x10^3 (test code = 731-0) 2.49 10*3/uL 1.09-3.23 MONO x10^3 (test code = 742-7) 0.61 10*3/uL 0.36-1.02 EOS x10^3 (test code = 711-2) 0.05 10*3/uL 0.06-0.53 L BASO x10^3 (test code = 704-7) <0.03 0.01-0.09 Lab Interpretation (test code = 70106-9) [facility]MIN[facility] [id number] 17:32:56* Test Item Value Reference Range Interpretation Comme nts NT-proBNP (test code = 2571422952) 13 pg/mL See_Comment [Automated message] The system which generated this result transmitted reference range: <=125. The reference range was not used to interpret this result as normal/abnormal. KRYSTLE (test code = KRYSTLE) Biotin has been reported to cause a negative bias, interpret results relative to patient's use of biotin. Lab Interpretation (test code = 46306-6) Normal [facility]N-TERMINAL [id number] 10:50:49* Test Item Value Reference Range Interpretation Comme nts NT-proBNP (test code = 1253410503) <11 See_Comment [Automated message] The system which generated this result transmitted reference range: <=125 pg/mL. The reference range was not used to interpret this result as normal/abnormal. KRYSTLE (test code = KRYSTLE) Biotin has been reported to cause a negative bias, interpret results relative to patient's use of biotin. Lab Interpretation (test code = 53007-0) [facility] PasoTROPONIN [id number] 10:36:56* Test Item Value Reference Range Interpretation Comments TROPONIN I (test code = 6767051767) 0.004 ng/mL See_Comment [Automated message] The system [...] of biotin. Lab Interpretation (test code = 33779-8) [facility] PasoCOMP[facility] METABOLIC PANEL (07610)2021-10-31 10:33:50* Test Item Value Reference Range Interpretation Comme nts NA (test code = 4357509912) 139 mmol/L 135-145 K (test code = 3805426362) 4.0 mmol/L 3.5-5.0 CL (test code = 6952266425) 109 mmol/L 98-108 H CO2 TOTAL (test code = 2303498030) 27 mmol/L 23-31 AGAP (test code = 5133318192) 2-16 BUN (test code = 9982220885) 16 mg/dL 7-23 GLUCOSE (test code = 1070203680) 97 mg/dL 70-110 CREATININE (test code = 3013700728) 1.00 mg/dL 0.60-1.25 TOTAL BILI (test code = 9749091455) 1.0 mg/dL 0.1-1.1 CALCIUM (test code = 9577314515) 8.7 mg/dL 8.6-10.6 T PROTEIN (test code = 4841797786) 7.9 g/dL 6.3-8.2 ALBUMIN (test code = 8758993412) 4.4 g/dL 3.5-5.0 ALK PHOS (test code = 9816554261) 60 U/L 34-122 ALTv (test code = 1742-6) 56 U/L 5-50 H AST(SGOT) (test code = 5834185294) 49 U/L 13-40 H eGFR (test code = 2292399797) mL/min/1.73m2 KRYSTLE (test code = KRYSTLE) Association [...] imaging tests). Lab Interpretation (test code = 33561-0) [facility]normal [facility] PasoMagnesium [id number] 10:25:32* Test Item Value Reference Range Interpretation Comme nts MAGNESIUM (test code = 8087244525) 1.8 mg/dL 1.7-2.4 Lab Interpretation (test cod e = 07611-1) [facility]2022-02-17 10:25:12* Test Item Value Reference Range Interpretation Comme nts PHOSPHORUS (test code = 1270940264) 3.9 mg/dL 2.5-5.0 Lab Interpretation (test cod e = 38667-3) Normal [facility] PasoCREATINE [id number] 10:24:52* Test Item Value Reference Range Interpretation Comme nts CK (test code = 8797438482) 215 U/L 33-194 H Lab Interpretation (test cod e = 67294-8) [facility]normal [facility] PasoCBC with [id number] 10:18:09* Test Item Value Reference Range Interpretation Comme nts WBC (test code = 6690-2) See_Comment [Automated [employer]] The system which generated this result transmitted reference range: 4.20 - 10.70 10*3/?L. The reference range was not used to interpret this result as normal/abnormal. RBC (test code = 789-8) See_Comment [Automated [employer]] The system which generated this result transmitted [...] 33.9 g/dL 31.2-35.0 RDW-SD (test code = 56005-4) 41.3 fL 38.5-51.6 RDW-CV (test code = 788-0) 13.0 % 12.1-15.4 PLT (test code = 777-3) See_Comment [Automated messa ge] The system which generated this result transmitted reference range: 150 - 328 10*3/?L. The reference range was not used to interpret this result as normal/abnormal. MPV (test code = 25684-4) 10.0 fL 9.8-13.0 NRBC/100 WBC (test code = 3662084359) See_Comment [Automated [employer] ssage] The system which generated this result transmitted reference range: 0.0 - 10.0 /100 WBCs. The reference range was not used to interpret this result as normal/abnormal. NRBC x10^3 (test code = 7633319195) <0.01 See_Comment [Automated messa ge] The system which generated this result transmitted reference range: 10*3/?L. The reference range was not used to interpret this result as normal/abnormal. GRAN MAT (NEUT) % (test code = 770-8) 46.4 % IMM GRAN % (test code = 5908648054) 0.20 % LYMPH % (test code = 736-9) 44.0 % MONO % (test code = 5905-5) 8.3 % EOS % (test code = 713-8) 0.7 % BASO % (test code = 706-2) 0.4 % GRAN MAT x10^3(ANC) (test code = 4990792916) 3.73 10*3/uL 1.99-6.95 IMM GRAN x10^3 (test code = 8403062816) <0.03 0.00-0.06 LYMPH x10^3 (test code = 731-0) 3.55 10*3/uL 1.09-3.23 H MONO x10^3 (test code = 742-7) 0.67 10*3/uL 0.36-1.02 EOS x10^3 (test code = 711-2) 0.06 10*3/uL 0.06-0.53 BASO x10^3 (test code = 704-7) 0.03 10*3/uL 0.01-0.09 Lab Interpretation (test code = 47955-6) Abnormal [facility] PasoPROTHROMBIN TIME / [id number] 10:18:09* Test Item Value Reference Range Interpretation Comme nts PROTIME PATIENT (test code = 5964-2) See_Comment [Automated [employer]] The system which generated this result transmitted reference range: 12.0 - 14.7 Seconds. The reference range was not used to interpret this result as normal/abnormal. INR (test code = 6301-6) Normal INR <1.1; Warfarin Therapeutic range 2.0 to 3.0 or 2.5 to 3.5, depending upon the indications. Lab Interpretation (test code = 93743-6) [facility] PasoTROPONIN [id number] 07:43:50* Test Item Value Reference Range Interpretation Comments TROPONIN I (test code = 9295824442) 0.005 ng/mL See_Comment [Automated message] The system [...] of biotin. Lab Interpretation (test code = 59457-2) [facility] METABOLIC PANEL (26057)2021-10-30 20:56:25* Test Item Value Reference Range Interpretation Comme nts NA (test code = 2107315602) 139 mmol/L 135-145 K (test code = 1627000826) 4.8 mmol/L 3.5-5.0 CL (test code = 9881543560) 105 mmol/L 98-108 CO2 TOTAL (test code = 4434407309) 26 mmol/L 23-31 AGAP (test code = 2190472395) 2-16 BUN (test code = 0643204256) 18 mg/dL 7-23 GLUCOSE (test code = 2803161246) 135 mg/dL 70-110 H CREATININE (test code = 5262473426) 0.98 mg/dL 0.60-1.25 TOTAL BILI (test code = 0040160629) 0.8 mg/dL 0.1-1.1 CALCIUM (test code = 7895595289) 10.0 mg/dL 8.6-10.6 T PROTEIN (test code = 8475457562) 10.3 g/dL 6.3-8.2 H ALBUMIN (test code = 1081617655) 5.5 g/dL 3.5-5.0 H ALK PHOS (test code = 2653599795) 74 U/L 34-122 ALTv (test code = 1742-6) 69 U/L 5-50 H AST(SGOT) (test code = 7644334287) 59 U/L 13-40 H eGFR (test code = 9333038949) mL/min/1.73m2 KRYSTLE (test code = KRYSTLE) Association [...] imaging tests). Lab Interpretation (test code = 13215-1) [facility] 20:56:05* Test Item Value Reference Range Interpretation Comme nts LIPASE (test code = 3847298243) 70 U/L 0-220 Lab Interpretation (test cod e = 89636-0) Normal [facility] PasoCBC WITH [id number] 20:34:20* Test Item Value Reference Range Interpretation [...] 34.3 g/dL 31.2-35.0 RDW-SD (test code = 73986-8) 40.6 fL 38.5-51.6 RDW-CV (test code = 788-0) 12.8 % 12.1-15.4 PLT (test code = 777-3) See_Comment [Automated messa ge] The system which generated this result transmitted reference range: 150 - 328 10*3/?L. The reference range was not used to interpret this result as normal/abnormal. MPV (test code = 71760-5) 9.2 fL 9.8-13.0 L NRBC/100 WBC (test code = 4579849581) See_Comment [Automated me ssage] The system which generated this result transmitted reference range: 0.0 - 10.0 /100 WBCs. The reference range was not used to interpret this result as normal/abnormal. NRBC x10^3 (test code = 8327516987) <0.01 See_Comment [Automated messa ge] The system which generated this result transmitted reference range: 10*3/?L. The reference range was not used to interpret this result as normal/abnormal. GRAN MAT (NEUT) % (test code = 770-8) 67.1 % IMM GRAN % (test code = 9662229977) 0.40 % LYMPH % (test code = 736-9) 24.5 % MONO % (test code = 5905-5) 7.6 % EOS % (test code = 713-8) 0.1 % BASO % (test code = 706-2) 0.3 % GRAN MAT x10^3(ANC) (test code = 8094268137) 7.34 10*3/uL 1.99-6.95 H IMM GRAN x10^3 (test code = 2686912049) 0.04 10*3/uL 0.00-0.06 LYMPH x10^3 (test code = 731-0) 2.67 10*3/uL 1.09-3.23 MONO x10^3 (test code = 742-7) 0.83 10*3/uL 0.36-1.02 EOS x10^3 (test code = 711-2) <0.03 0.06-0.53 L BASO x10^3 (test code = 704-7) 0.03 10*3/uL 0.01-0.09 Lab Interpretation (test code = 68026-4) [facility]normal [facility] PasoCREATINE [id number] 05:55:54* Test Item Value Reference Range Interpretation Comme nts CK (test code = 6784756509) 3682 U/L 33-194 H Lab Interpretation (test cod e = 76411-0) [facility]normal [facility] PasoCREATINE [id number] 05:55:54* Test Item Value Reference Range Interpretation Comme nts CK (test code = 8974615114) 3682 U/L 33-194 H Lab Interpretation (test cod e = 01636-0) [facility] (NA, K, CL, CO2, GLUCOSE, BUN, CREATININE, CA)2021-05-24 05:02:27* Test Item Value Reference Range Interpretation Comme nts NA (test code = 7383150824) 137 mmol/L 135-145 K (test code = 2377504839) 3.6 mmol/L 3.5-5.0 CL (test code = 2432347582) 105 mmol/L 98-108 CO2 TOTAL (test code = 7886759768) 23 mmol/L 23-31 AGAP (test code = 5396562906) 2-16 BUN (test code = 0504797494) 26 mg/dL 7-23 H GLUCOSE (test code = 6621418432) 95 mg/dL 70-110 CREATININE (test code = 9647646587) 1.31 mg/dL 0.60-1.25 H CALCIUM (test code = 4481308669) 8.6 mg/dL 8.6-10.6 eGFR (test code = 7052105221) mL/min/1.73m2 KRYSTLE (test code = KRYSTLE) Association [...] imaging tests). Lab Interpretation (test code = 90215-4) Abnormal [facility] METABOLIC PANEL (NA, K, CL, CO2, GLUCOSE, BUN, CREATININE, CA)2021-05-24 05:02:27* Test Item Value Reference Range Interpretation Comme nts NA (test code = 4648908101) 137 mmol/L 135-145 K (test code = 7974114991) 3.6 mmol/L 3.5-5.0 CL (test code = 7454739866) 105 mmol/L 98-108 CO2 TOTAL (test code = 0981531733) 23 mmol/L 23-31 AGAP (test code = 0414883651) 2-16 BUN (test code = 2493984301) 26 mg/dL 7-23 H GLUCOSE (test code = 5780446283) 95 mg/dL 70-110 CREATININE (test code = 1441478089) 1.31 mg/dL 0.60-1.25 H CALCIUM (test code = 7459728984) 8.6 mg/dL 8.6-10.6 eGFR (test code = 7208884251) mL/min/1.73m2 KRYSTLE (test code = KRYSTLE) Association [...] imaging tests). Lab Interpretation (test code = 21248-8) Abnormal [facility] [id number] 02:56:10* Test Item Value Reference Range Interpretation Comments TROPONIN I (test code = 7776289364) 0.004 ng/mL See_Comment [Automated message] The system [...] of biotin. Lab Interpretation (test code = 55706-6) Normal [facility] [id number] 02:56:10* Test Item Value Reference Range Interpretation Comments TROPONIN I (test code = 4150115524) 0.004 ng/mL See_Comment [Automated message] The system [...] of biotin. Lab Interpretation (test code = 48914-6) [facility] [id number] 02:41:54* Test Item Value Reference Range Interpretation Comme nts CK (test code = 3874260825) 4607 U/L 33-194 H Lab Interpretation (test cod e = 60003-3) [facility] [id number] 02:41:54* Test Item Value Reference Range Interpretation Comme nts CK (test code = 8199561514) 4607 U/L 33-194 H Lab Interpretation (test cod e = 35684-2) [facility] [id number] 02:33:28* Test Item Value Reference Range Interpretation Comme nts NT-proBNP (test code = 6044506067) 14 pg/mL See_Comment [Automated message] The system which generated this result transmitted reference range: <=125. The reference range was not used to interpret this result as normal/abnormal. KRYSTLE (test code = KRYSTLE) Biotin has been reported to cause a negative bias, interpret results relative to patient's use of biotin. Lab Interpretation (test code = 71813-7) [facility] [id number] 02:33:28* Test Item Value Reference Range Interpretation Comme nts NT-proBNP (test code = 5509197800) 14 pg/mL See_Comment [Automated message] The system which generated this result transmitted reference range: <=125. The reference range was not used to interpret this result as normal/abnormal. KRYSTLE (test code = KRYSTLE) Biotin has been reported to cause a negative bias, interpret results relative to patient's use of biotin. Lab Interpretation (test code = 23496-8) [facility] Test Item Value Reference Range Interpretation Comme nts APPEARANCE (test code = 6384178355) Clear Clear COLOR (test code = 4490249311) Yellow Yellow PH (test code = 8521839677) 4.8-8.0 SP GRAVITY (test code = 8570878080) 1.003-1.030 GLU U QUAL (test code = 3941595197) Normal Normal BLOOD (test code = 1393495312) Negative Negative KETONES (test code = 0631437418) Negative Negative PROTEIN (test code = 2887-8) Negative Negative UROBILIN (test code = 0653480515) 2.0 mg/dL Normal A BILIRUBIN (test code = 3007911201) Negative Negative NITRITE (test code = 1697261838) Negative Negative LEUK MO (test code = 7703364598) Negative Negative RBC/HPF (test code = 9562846335) See_Comment [Automated [employer]] The system which generated this result transmitted reference range: 0 - 3 HPF. The reference range was not used to interpret this result as normal/abnormal. WBC/HPF (test code = 5548228747) See_Comment [Automated [employer]] The system which generated this result transmitted reference range: 0 - 5 HPF. The reference range was not used to interpret this result as normal/abnormal. BACTERIA (test code = 3332122457) Negative Negative MUCOUS (test code = 6750096069) Slight Negative LPF A SQ EPITH (test code = 4387848707) <1 HPF Lab Interpretation (test code = 81066-3) [facility] 02:29:35* Test Item Value Reference Range Interpretation Comme nts APPEARANCE (test code = 8829740565) Clear Clear COLOR (test code = 1513878408) Yellow Yellow PH (test code = 7918719613) 4.8-8.0 SP GRAVITY (test code = 6547294617) 1.003-1.030 GLU U QUAL (test code = 4353235232) Normal Normal BLOOD (test code = 5607960571) Negative Negative KETONES (test code = 0920292597) Negative Negative PROTEIN (test code = 2887-8) Negative Negative UROBILIN (test code = 3054589745) 2.0 mg/dL Normal A BILIRUBIN (test code = 3893730736) Negative Negative NITRITE (test code = 7166090651) Negative Negative LEUK MO (test code = 2767253918) Negative Negative RBC/HPF (test code = 4740121671) See_Comment [Automated messa ge] The system which generated this result transmitted reference range: 0 - 3 HPF. The reference range was not used to interpret this result as normal/abnormal. WBC/HPF (test code = 4250891822) See_Comment [Automated messa ge] The system which generated this result transmitted reference range: 0 - 5 HPF. The reference range was not used to interpret this result as normal/abnormal. BACTERIA (test code = 4837071998) Negative Negative MUCOUS (test code = 8433055717) Slight Negative LPF A SQ EPITH (test code = 6779632813) <1 HPF Lab Interpretation (test code = 51042-0) Abnormal [facility]. METABOLIC PANEL (30462)2021-05-24 02:25:07* Test Item Value Reference Range Interpretation Comme nts NA (test code = 0103894690) 137 mmol/L 135-145 K (test code = 3672201469) 3.1 mmol/L 3.5-5.0 L CL (test code = 9685057706) 102 mmol/L 98-108 CO2 TOTAL (test code = 3591647743) 22 mmol/L 23-31 L AGAP (test code = 4197851237) 2-16 BUN (test code = 5646624502) 28 mg/dL 7-23 H GLUCOSE (test code = 3219632278) 132 mg/dL 70-110 H CREATININE (test code = 1317449752) 1.77 mg/dL 0.60-1.25 H TOTAL BILI (test code = 9897756105) 1.0 mg/dL 0.1-1.1 CALCIUM (test code = 9234784721) 9.4 mg/dL 8.6-10.6 T PROTEIN (test code = 0756424275) 9.4 g/dL 6.3-8.2 H ALBUMIN (test code = 2297228651) 5.0 g/dL 3.5-5.0 ALK PHOS (test code = 8791317689) 79 U/L 34-122 ALTv (test code = 1742-6) 112 U/L 5-50 H AST(SGOT) (test code = 7231790558) 152 U/L 13-40 H eGFR (test code = 2499013960) mL/min/1.73m2 KRYSTLE (test code = KRYSTLE) Association [...] imaging tests). Lab Interpretation (test code = 60589-8) Abnormal [facility]. METABOLIC PANEL (34745)2021-05-24 02:25:07* Test Item Value Reference Range Interpretation Comme nts NA (test code = 5028899544) 137 mmol/L 135-145 K (test code = 7349618866) 3.1 mmol/L 3.5-5.0 L CL (test code = 0603459404) 102 mmol/L 98-108 CO2 TOTAL (test code = 3560711431) 22 mmol/L 23-31 L AGAP (test code = 8602018554) 2-16 BUN (test code = 3455715038) 28 mg/dL 7-23 H GLUCOSE (test code = 4901175851) 132 mg/dL 70-110 H CREATININE (test code = 7986782650) 1.77 mg/dL 0.60-1.25 H TOTAL BILI (test code = 4304435870) 1.0 mg/dL 0.1-1.1 CALCIUM (test code = 6638105773) 9.4 mg/dL 8.6-10.6 T PROTEIN (test code = 3695993884) 9.4 g/dL 6.3-8.2 H ALBUMIN (test code = 2258979985) 5.0 g/dL 3.5-5.0 ALK PHOS (test code = 7471846486) 79 U/L 34-122 ALTv (test code = 1742-6) 112 U/L 5-50 H AST(SGOT) (test code = 3551813647) 152 U/L 13-40 H eGFR (test code = 9853215213) mL/min/1.73m2 KRYSTLE (test code = KRYSTLE) Association [...] imaging tests). Lab Interpretation (test code = 96349-9) Abnormal [facility] WITH [id number] 02:03:22* Test Item Value Reference Range Interpretation Comme nts WBC (test code = 6690-2) See_Comment [Automated [employer]] The system which generated this result transmitted reference range: 4.20 - 10.70 10*3/?L. The reference range was not used to interpret this result as normal/abnormal. RBC (test code = 789-8) See_Comment [Automated [employer]] The system which generated this result [...] g/dL 31.2-35.0 H RDW-SD (test code = 88417-6) 39.7 fL 38.5-51.6 RDW-CV (test code = 788-0) 12.7 % 12.1-15.4 PLT (test code = 777-3) See_Comment [Automated [employer]] The system which generated this result transmitted reference range: 150 - 328 10*3/?L. The reference range was not used to interpret this result as normal/abnormal. MPV (test code = 74572-1) 9.7 fL 9.8-13.0 L NRBC/100 WBC (test code = 3581083869) See_Comment [Automated [employer]age] The system which generated this result transmitted reference range: 0.0 - 10.0 /100 WBCs. The reference range was not used to interpret this result as normal/abnormal. NRBC x10^3 (test code = 3073951768) <0.01 See_Comment [Automated messa ge] The system which generated this result transmitted reference range: 10*3/?L. The reference range was not used to interpret this result as normal/abnormal. GRAN MAT (NEUT) % (test code = 770-8) 45.9 % IMM GRAN % (test code = 8509554600) 0.20 % LYMPH % (test code = 736-9) 41.7 % MONO % (test code = 5905-5) 11.6 % EOS % (test code = 713-8) 0.3 % BASO % (test code = 706-2) 0.3 % GRAN MAT x10^3(ANC) (test code = 1329026797) 3.95 10*3/uL 1.99-6.95 IMM GRAN x10^3 (test code = 7686677569) <0.03 0.00-0.06 LYMPH x10^3 (test code = 731-0) 3.60 10*3/uL 1.09-3.23 H MONO x10^3 (test code = 742-7) 1.00 10*3/uL 0.36-1.02 EOS x10^3 (test code = 711-2) 0.03 10*3/uL 0.06-0.53 L BASO x10^3 (test code = 704-7) 0.03 10*3/uL 0.01-0.09 Lab Interpretation (test code = 03975-0) Abnormal [facility] WITH [id number] 02:03:22* Test Item Value Reference Range Interpretation [...] g/dL 31.2-35.0 H RDW-SD (test code = 68290-9) 39.7 fL 38.5-51.6 RDW-CV (test code = 788-0) 12.7 % 12.1-15.4 PLT (test code = 777-3) See_Comment [Automated [employer]] The system which generated this result transmitted reference range: 150 - 328 10*3/?L. The reference range was not used to interpret this result as normal/abnormal. MPV (test code = 31592-1) 9.7 fL 9.8-13.0 L NRBC/100 WBC (test code = 5842159872) See_Comment [Automated [employer]age] The system which generated this result transmitted reference range: 0.0 - 10.0 /100 WBCs. The reference range was not used to interpret this result as normal/abnormal. NRBC x10^3 (test code = 8670889414) <0.01 See_Comment [Automated [employer]] The system which generated this result transmitted reference range: 10*3/?L. The reference range was not used to interpret this result as normal/abnormal. GRAN MAT (NEUT) % (test code = 770-8) 45.9 % IMM GRAN % (test code = 0967077535) 0.20 % LYMPH % (test code = 736-9) 41.7 % MONO % (test code = 5905-5) 11.6 % EOS % (test code = 713-8) 0.3 % BASO % (test code = 706-2) 0.3 % GRAN MAT x10^3(ANC) (test code = 9705426874) 3.95 10*3/uL 1.99-6.95 IMM GRAN x10^3 (test code = 2491360197) <0.03 0.00-0.06 LYMPH x10^3 (test code = 731-0) 3.60 10*3/uL 1.09-3.23 H MONO x10^3 (test code = 742-7) 1.00 10*3/uL 0.36-1.02 EOS x10^3 (test code = 711-2) 0.03 10*3/uL 0.06-0.53 L BASO x10^3 (test code = 704-7) 0.03 10*3/uL 0.01-0.09 Lab Interpretation (test code = 99438-4) [facility] 00:31:00* Test Item Value Reference Range Interpretation Comme nts SARS-CoV-2 Rapid ID NOW (test code = 22804-3) Not Detected Not Detected KRYSTLE (test code = KRYSTLE) ID NOW COVID-19 As say is an isothermal nucleic acid amplification test intended for the qualitative detection of nucleic acid from SARS-CoV-2 viral RNA in nasopharyngeal (PLAN REP) specimens. It is used under Emergency Use [...] clinically indicated. Lab Interpretation (test code = 38719-6) Normal [facility] STREP SCREEN FOR GROUP [id number] 00:25:45* Test Item Value Reference Range Interpretation Comme nts Streptococcus pyogenes (grou p A) antigen (test code = 56610-0) Negative Negative Lab Interpretation (test cod e = 43276-6) Normal [facility]- (ID NOW RAPID TESTING)2021-04-02 01:41:42* Test Item Value Reference Range Interpretation Comme nts SARS-CoV-2 Rapid ID NOW (test code = 90887-0) Not Detected Not Detected KRYSTLE (test code = KRYSTLE) ID NOW COVID-19 As say is an isothermal nucleic acid amplification test intended for the qualitative detection of nucleic acid from SARS-CoV-2 viral RNA in nasopharyngeal (PLAN REP) specimens. It is used under Emergency Use [...] clinically indicated. Lab Interpretation (test code = 26967-6) [facility] [id number] 01:39:31* Test Item Value Reference Range Interpretation Comme nts Streptococcus pyogenes (grou p A) antigen (test code = 41070-3) Negative Negative Lab Interpretation (test cod e = 48736-6) [facility] 3+ VW [id number] 02:41:03 Impression: No acute osseous abnormality. AFC: [id number] 460End of Report Exam: XR WRIST 3+ [...] soft tissue edema.IMPRESSIONImpression: No acute osseous abnormality.AFC: [id number] 460End of Report [facility] 01:32:01* Test Item Value Reference Range Interpretation Comme nts APPEARANCE (test code = 2414179329) Clear Clear COLOR (test code = 4315958095) Yellow Yellow PH (test code = 6364953488) 4.8-8.0 SP GRAVITY (test code = 9073386671) 1.003-1.030 GLU U QUAL (test code = 7741275084) Normal Normal BLOOD (test code = 6183326294) Negative Negative KETONES (test code = 8219948645) Negative Negative PROTEIN (test code = 2887-8) Negative Negative UROBILIN (test code = 1492419750) 2.0 mg/dL Normal A BILIRUBIN (test code = 2086071999) Negative Negative NITRITE (test code = 5245369791) Negative Negative LEUK MO (test code = 4517003157) Negative Negative RBC/HPF (test code = 7480129681) See_Comment [Automated [employer]] The system which generated this result transmitted reference range: 0 - 3 HPF. The reference range was not used to interpret this result as normal/abnormal. WBC/HPF (test code = 5071672194) See_Comment [Automated [employer]] The system which generated this result transmitted reference range: 0 - 5 HPF. The reference range was not used to interpret this result as normal/abnormal. BACTERIA (test code = 6607841421) Few Negative A MUCOUS (test code = 7744185138) Slight Negative LPF A SQ EPITH (test code = 5302802762) <1 HPF Lab Interpretation (test code = 17025-1) [facility] 1 [id number] 04:09:05Impression: Mild thickening of the sol of the central airways, possibly reflectinginfectious or inflammatory bronchitis. RL: 460 AFC: [id number] Ordering physician: DARNELL HSU Indication: Cough and [...] airways, possibly reflectinginfectious or inflammatory bronchitis.RL: 460AFC: 13589Vvtglkrdonxayc signed byMarisol Manzo MD, PhD at 11/14/2020 10:09 PM [facility] PasoCOMPREHENSIVE METABOLIC [id number] 00:00:00* Test Item Value Reference Range Interpretation Comme nts GLUCOSE (test code = 2217) 101 MG/DL BUN (test code = 2208) 11 MG/DL CREATININE (test code = 2214) 0.88 MG/DL eGFR AMER. (test cod e = 77544) 118 ML/MIN/1.73 eGFR NON- AMER. (test code = 28284) 102 ML/MIN/1.73 CALC BUN/CREAT (test code = [...] (test code = 2219) 88 U/L N-TERMINAL [id number] 15:43:00* Test Item Value Reference Range Interpretation Comme nts NT-proBNP (test code = 4062339305) <11 See_Comment [Automated message] The system which generated this result transmitted reference range: <=125 pg/mL. The reference range was not used to interpret this result as normal/abnormal. KRYSTLE (test code = KRYSTLE) Biotin has been reported to cause a negative bias, interpret results relative to patient's use of biotin. Lab Interpretation (test code = 14735-6) Normal [facility] WITH [id number] 15:27:00* Test Item Value Reference Range Interpretation Comme nts WBC (test code = 6690-2) See_Comment [Automated [employer]] The system which generated this result transmitted reference range: 4.20 - 10.70 10*3/?L. The reference range was not used to interpret this result as normal/abnormal. RBC (test code = 789-8) See_Comment [Automated [employer]] The system which generated this result transmitted [...] g/dL 31.2-35 H RDW-SD (test code = 19143-7) 37.3 fL 38.5-51.6 L RDW-CV (test code = 788-0) 11.9 % 12.1-15.4 L PLT (test code = 777-3) See_Comment [Automated messa ge] The system which generated this result transmitted reference range: 150 - 328 10*3/?L. The reference range was not used to interpret this result as normal/abnormal. MPV (test code = 75035-6) 9.7 fL 9.8-13 L NRBC/100 WBC (test code = 6134628111) See_Comment [Automated [employer]] The system which generated this result transmitted reference range: 0.0 - 10.0 /100 WBCs. The reference range was not used to interpret this result as normal/abnormal. NRBC x10^3 (test code = 3253272129) <0.01 See_Comment [Automated messa ge] The system which generated this result transmitted reference range: 10*3/?L. The reference range was not used to interpret this result as normal/abnormal. GRAN MAT (NEUT) % (test code = 770-8) 29.2 % IMM GRAN % (test code = 8596173561) 0.20 % LYMPH % (test code = 736-9) 59.0 % MONO % (test code = 5905-5) 10.1 % EOS % (test code = 713-8) 1.1 % BASO % (test code = 706-2) 0.4 % GRAN MAT x10^3(ANC) (test code = 5544447449) 1.57 10*3/uL 1.99-6.95 L IMM GRAN x10^3 (test code = 2906145703) <0.03 0-0.06 LYMPH x10^3 (test code = 731-0) 3.17 10*3/uL 1.09-3.23 MONO x10^3 (test code = 742-7) 0.54 10*3/uL 0.36-1.02 EOS x10^3 (test code = 711-2) 0.06 10*3/uL 0.06-0.53 BASO x10^3 (test code = 704-7) <0.03 0.01-0.09 Lab Interpretation (test code = 79365-4) [facility] 1 [id number] 15:13:32No acute cardiopulmonary process. Preliminary Report Dictated by Resident: Woongsoon Giron Efraín Francisco MD., have reviewed this study and agree [...] have reviewed thisstudy and agree withthe above report.[facility] PasoMELISSA [id number] 14:59:00* Test Item Value Reference Range Interpretation Comme nts TROPONIN I (test code = 8818471037) <0.012 See_Comment [Automated message] The system which [...] biotin. ? Lab Interpretation (test code = 24945-4) Normal [facility] METABOLIC PANEL (73396)2020-09-30 14:59:00* Test Item Value Reference Range Interpretation Comme nts NA (test code = 4140512952) 139 mmol/L 135-145 K (test code = 2097336835) 3.8 mmol/L 3.5-5 CL (test code = 2372732613) 103 mmol/L 98-108 CO2 TOTAL (test code = 5881018781) 26 mmol/L 23-31 AGAP (test code = 8439125668) 2-16 BUN (test code = 5663245262) 11 mg/dL 7-23 GLUCOSE (test code = 8262510405) 163 mg/dL 70-110 H CREATININE (test code = 8931291038) 0.85 mg/dL 0.6-1.25 TOTAL BILI (test code = 1649438581) 0.6 mg/dL 0.1-1.1 CALCIUM (test code = 2201993719) 9.0 mg/dL 8.6-10.6 T PROTEIN (test code = 0153276009) 8.0 g/dL 6.3-8.2 ALBUMIN (test code = 5728566220) 4.4 g/dL 3.5-5 ALK PHOS (test code = 5597365557) 75 U/L 34-122 ALTv (test code = 1742-6) 61 U/L 5-50 H AST(SGOT) (test code = 0847330717) 54 U/L 13-40 H eGFR Calculation (Non-) (test code = 1253323089) mL/min/1.73m2 eGFR Calculation () (test code = 9353008084) mL/min/1.73m2 KRYSTLE (test code = KRYSTLE) Association [...] imaging tests). Lab Interpretation (test code = 96448-2) Abnormal [facility] PasoLIPASE, [id number] 14:59:00* Test Item Value Reference Range Interpretation Comme nts LIPASE (test code = 2264223708) 116 U/L 0-220 Lab Interpretation (test cod e = 75536-1) Normal [facility] PasoTroponin [id number] 04:30:00* Test Item Value Reference Range Interpretation Comme nts TROPONIN I (test code = 3593659452) <0.012 See_Comment [Automated message] The system which [...] biotin. ? Lab Interpretation (test code = 01219-2) Normal [facility] PasoComplete Metabolic [id number] 03:24:00* Test Item Value Reference Range Interpretation Comme nts NA (test code = 2767682945) 137 mmol/L 135-145 K (test code = 4421771712) 4.7 mmol/L 3.5-5 CL (test code = 6919669637) 101 mmol/L 98-108 CO2 TOTAL (test code = 6362139402) 27 mmol/L 23-31 AGAP (test code = 1432266296) 2-16 BUN (test code = 8992289544) 16 mg/dL 7-23 GLUCOSE (test code = 0070907875) 226 mg/dL 70-110 H CREATININE (test code = 5074932880) 1.13 mg/dL 0.6-1.25 TOTAL BILI (test code = 7071590788) 0.7 mg/dL 0.1-1.1 CALCIUM (test code = 7985576855) 9.3 mg/dL 8.6-10.6 T PROTEIN (test code = 0583973243) 7.8 g/dL 6.3-8.2 ALBUMIN (test code = 8239105514) 3.9 g/dL 3.5-5 ALK PHOS (test code = 2630870135) 79 U/L 34-122 ALTv (test code = 1742-6) 62 U/L 5-50 H AST(SGOT) (test code = 7192916392) 49 U/L 13-40 H eGFR Calculation (Non-) (test code = 4658017816) mL/min/1.73m2 eGFR Calculation () (test code = 8994629697) mL/min/1.73m2 KRYSTLE (test code = KRYSTLE) Association [...] imaging tests). Lab Interpretation (test code = 02490-8) Abnormal [facility] PasoLipase, [id number] 03:23:00* Test Item Value Reference Range Interpretation Comme nts LIPASE (test code = 4679163963) 317 U/L 0-220 H Lab Interpretation (test cod e = 16259-0) Abnormal [facility] PasoCBC with [id number] 03:21:00* Test Item Value Reference Range Interpretation Comme nts WBC (test code = 6690-2) See_Comment [Automated [employer]] The system which generated this result transmitted reference range: 4.20 - 10.70 10*3/?L. The reference range was not used to interpret this result as normal/abnormal. RBC (test code = 789-8) See_Comment [Automated [employer]] The system which generated this result transmitted [...] g/dL 31.2-35 H RDW-SD (test code = 03013-5) 37.9 fL 38.5-51.6 L RDW-CV (test code = 788-0) 12.4 % 12.1-15.4 PLT (test code = 777-3) See_Comment [[employer]ated [employer]] The system which generated this result transmitted reference range: 150 - 328 10*3/?L. The reference range was not used to interpret this result as normal/abnormal. MPV (test code = 44608-7) 9.7 fL 9.8-13 L NRBC/100 WBC (test code = 1800016042) See_Comment [Automated [employer]] The system which generated this result transmitted reference range: 0.0 - 10.0 /100 WBCs. The reference range was not used to interpret this result as normal/abnormal. NRBC x10^3 (test code = 3876097055) <0.01 See_Comment [[employer]ated [employer]] The system which generated this result transmitted reference range: 10*3/?L. The reference range was not used to interpret this result as normal/abnormal. GRAN MAT (NEUT) % (test code = 770-8) 36.7 % IMM GRAN % (test code = 8175308669) 0.10 % LYMPH % (test code = 736-9) 50.9 % MONO % (test code = 5905-5) 11.1 % EOS % (test code = 713-8) 0.8 % BASO % (test code = 706-2) 0.4 % GRAN MAT x10^3(ANC) (test code = 6814412837) 2.59 10*3/uL 1.99-6.95 IMM GRAN x10^3 (test code = 8548848354) <0.03 0-0.06 LYMPH x10^3 (test code = 731-0) 3.61 10*3/uL 1.09-3.23 H MONO x10^3 (test code = 742-7) 0.79 10*3/uL 0.36-1.02 EOS x10^3 (test code = 711-2) 0.06 10*3/uL 0.06-0.53 BASO x10^3 (test code = 704-7) 0.03 10*3/uL 0.01-0.09 Lab Interpretation (test code = 80518-0) Abnormal [facility] History and Physical Notes Date/Time Note Provider [...] 220). On a 12/2022 hospital stay at [facility], he was diagnosed with an idiopathic chronic [...] by mouth daily. 90 tablet 1 Pancrelipase, Vzu-Izsf-Rxcu, (Creon) [id number] units oral Cap DR Particles Take 1 [...] He was getting medicinal marijuana while in [place] Sexual activity: Yes Partners: Male ROS: 06/27 [...] All questions were answered. Gibran Mcadams MD [facility]
[2024-10-12] MEDS ORDERED: FAMOTIDINE 20 MG/2 ML VIAL IV ONE (08:01)
[2024-10-12] MEDS ORDERED: ONDANSETRON 4 MG/2 ML VIAL ONE (08:01)
[2024-10-12] MEDS ORDERED: MORPHINE 4 MG/ML SYR ONE ×2 (08:01→15:10)
--- NOTE | 2024-10-12 08:29 | RAD REPORT ---
EXAMINATION: CT ABDOMEN AND PELVIS WITH CONTRAST CLINICAL INDICATION: Male, 53 years old.ABD PAIN TECHNIQUE: CT abdomen and pelvis was performed, after the administration of IV [facility] Axial, sagittal and coronal reconstructions were obtained. One or more of the following dose reduction techniques were used: Automated exposure control, adjustment of the mA and/o r kV according to patient size, and/or iterative reconstruction. Unless otherwise specified, incidental findings do not require dedicated imaging follow-up. [id number]. COMPARISON: 05/14/2024 FINDINGS: LOWER CHEST: No acute process identified.No significant pericardial effusion. Mild circumferential th ickening of the distal esophagus which could reflect esophagitis. UPPER GI: No significant abnormality. LIVER: Hepatic steatosis. Benign appearing and/or stable lesions are identified. No suspicious mass. GALLBLADDER/BILE DUCTS: No biliary ductal dilatation.? PANCREAS: Subtle edema present at the head of the pancreas. SPLEEN: Unremarkable. ADRENALS: No adrenal masses. KIDNEYS AND URETERS: No hydronephrosis.No suspicious renal mass. ABDOMINAL AORTA AND OTHER VESSELS: Normal caliber aorta and IVC. PERITONEUM: No abnormal free fluid. No free air. LYMPH NODES: No pathologic lymphadenopathy. ABDOMINAL WALL: Small fat containing umbilical hernia. SMALL BOWEL/COLON: Small bowel has normal course and caliber. No colonic wall thickening or pericolon ic inflammatory changes.Normal appendix. Mild diverticulosis without diverticulitis. URINARY BLADDER: Underdistended but grossly unremarkable. REPRODUCTIVE ORGANS: No pathologic process. MUSCULOSKELETAL: No acute or suspicious osseous abnormality. Mild degenerative changes are present L5 -S1. ADDITIONAL FINDINGS: None. IMPRESSION: Subtle edema around the head of the pancreas could reflect early or mild acute appendicitis.
[2024-10-12 08:39] LABS: Absolute Eosinophils 0.1 K/uL (0-0.5); Absolute Lymphocytes (CBC) 2.5 K/uL (0.7-4.9); Absolute Monocytes 0.6 K/uL (0.1-1.3); Absolute Neutrophil 3.1 K/uL (1.8-8.0); Basophils % 0.4 % (0-1.3); Eosinophils % 1.5 % (0-4.4); Hematocrit 45.1 % (39.6-49.0); Hemoglobin 15.3 g/dL (13.6-17.9); Lymphocytes % 39.4 % (15.3-44.8); MCH 29.6 pg (27.0-35.0); MCHC 33.9 g/dL (32.0-36.0); MCV 87.2 fL (80-100); MPV 8.1 fL (7.6-11.3); Monocytes % 9.6 % (3.3-12.3); Neutrophils % 49.1 % (41.7-73.7); Nucleated Red Blood Cells % 0.2 % (0-0); Platelets 226 thou/uL (152-406); RBC Red Blood Cell Count 5.18 M/uL (4.33-5.43); Red Cell Distribution Width 13.5 % (12.1-15.2)
[2024-10-12 08:49] LABS: Albumin 3.5 g/dL (3.4-5.0); Albumin/Globulin Ratio 0.9 (1.1-1.8); Anion Gap 6.9 mEq/L (5.0-15.0); Bilirubin Total 0.3 mg/dL (0.2-1.0); Globulin 4.1 g/dL (2.3-3.5); Potassium 3.9 mEq/L (3.5-5.1); Protein, Total 7.6 g/dL (6.4-8.2)
--- NOTE | 2024-10-12 08:56 | RAD REPORT ---
Abdomen Exam Limited: 10/12/2024 8:26 AM CLINICAL HISTORY: ABD PAIN STUDY: Limited right upper quadrant ultrasound of abdomen. COMPARISON: None. FINDINGS: Liver: Within normal limits. Bile ducts: Mild extrahepatic biliary duct dilatation. Common bile duct measures 7 mm. Gallbladder: Borderline gallbladder wall thickening though the gallbladder is underdistended. Negativ e for cholelithiasis. No sonographic Gomez sign reported. IMPRESSION: Gallbladder wall thickening may be reactive. No sonographic evidence of acute cholecystitis otherwise . Mildly dilated common bile duct measuring 7 mm though the duct appears in normal caliber on CT with e xpected tapering distally.
--- NOTE | 2024-10-12 09:29 | EDPHYS ---
Physician Documentation [facility] Name: Noah Putnam Age: 53 yrs Sex: Male : 1970 Arrival Date: 10/12/2024 Time: 07:41 Bed 24 Private MD: ED Physician Davy bAebe HPI: 10/12 09:24 This 53 yrs old Black Male presents to ER via Ambulatory with complaints of Abdominal rn Pain, Back Pain. 09:24 The patient presents with abdominal pain in the epigastric area. Onset: The rn symptoms/episode began/occurred 3 day(s) ago. The symptoms radiate to Associated signs and symptoms: Pertinent positives: nausea and vomiting, Pertinent negatives: blood in stools, fever. The symptoms are described as achy. Modifying factors: The symptoms are alleviated by nothing, the symptoms are aggravated by touching the area. Severity of pain: At its worst the pain was moderate in the emergency department the pain is unchanged. The patient has experienced similar episodes in the past. Patient reports a few days of epigastric abdominal pain that radiates to back, associated with nausea and vomiting and similar to previous episodes of pancreatitis. Patient states that his pain feels similar to pancreatitis but worse than usual he is. No fever or chills. Denies chest pain. No blood in stool. No lower abdominal pain.. Historical: - Allergies: 07:54 Bee Venom; bp - Home Meds: 07:54 amlodipine 10 mg tab 1 tab once daily [Active]; lisinopril 10 mg Oral tab 1 tab once bp daily [Active]; - PMHx: 07:54 chronic kidney disease; Chronic Pancreatitis; Herniated disc; Hypertension; bp - PSHx: 07:54 left arm surgery; bp - Immunization history:: Adult Immunizations up to date. - Infectious Disease History:: Denies. - Social history:: Smoking status: Patient denies any tobacco usage or history of. - Family history:: not pertinent. - Hospitalizations: : No recent hospitalization is reported. ROS: 09:24 Constitutional: Negative for fever, chills, and weight loss, Cardiovascular: Negative rn for chest pain, palpitations, and edema, Respiratory: Negative for shortness of breath, cough, wheezing, and pleuritic chest pain, Abdomen/GI: Positive for epigastric abdominal pain with nausea and vomiting Back: Positive for back pain MS/Extremity: Negative for injury and deformity, Skin: Negative for injury, rash, and discoloration, Neuro: Negative for headache, weakness, numbness, tingling, and seizure, Exam: 09:24 Constitutional: This is a well developed, well nourished patient who is awake, alert, rn and in no acute distress. Cardiovascular: Regular rate and rhythm. No pulse deficits. Respiratory: No increased work of breathing, no retractions or nasal flaring. Abdomen/GI: Soft, epigastric tenderness. Negative Gomez. No peritoneal signs or distention Neuro: Awake and alert, GCS 15 Vital Signs: 07:53 BP 139 / 97; Pulse 74; Resp 16; Temp 97.5; Pulse Ox 95% ; Weight 120.2 kg; Height 6 ft. bp 4 in. ; 08:00 BP 150 / 98; Pulse 66; Resp 15; Pulse Ox 94% ; bp 11:00 BP 132 / 69; Pulse 61; Resp 15; Pulse Ox 94% ; bp 13:00 BP 151 / 104; Pulse 63; Resp 15; Pulse Ox 95% ; bp 15:00 BP 147 / 83; Pulse 69; Resp 15; Pulse Ox 94% ; bp 07:53 Body Mass Index 32.26 (120.20 kg, 193.04 cm) bp MDM: 07:44 Medical Screening Exam initiated rn 09:24 Differential diagnosis: bowel obstruction, cholecystitis, Cholelithiasis, rn diverticulitis, gastritis, gastroesophageal reflux disease, pancreatitis, Peptic Ulcer Disease, Perf. Duodenal Ulcer, Perf. Gastric Ulcer. Data reviewed: vital signs, nurses notes, lab test result(s), radiologic studies, CT scan, ultrasound, and as a result, I will admit patient. Consideration of Admission/Observation Patient was admitted/placed on observation. Escalation of care including admission/observation considered. Care significantly affected by the following chronic conditions: Chronic pancreatitis. Counseling: I had a detailed discussion with the patient and/or guardian regarding the historical points, exam findings, and any diagnostic results supporting the discharge/admit diagnosis, lab results, radiology results, the need for further work-up and treatment in the hospital. Response to treatment: the patient's symptoms have mildly improved after treatment, and as a result, I will admit patient. ED course: Patient most likely with acute on chronic pancreatitis given inflammation of the pancreatic head on imaging and similar presentation to previous pancreatitis episodes. Ultrasound shows slight thickening of gallbladder wall but no other signs of acute cholecystitis and gallbladder is under distended. Patient with normal WBC and normal LFTs. Will admit for acute on chronic pancreatitis and further care. . 10/12 07:56 Order name: CBC with Diff; Complete Time: 09:10 rn 10/12 07:56 Order name: CMP; Complete Time: 09:10 rn 10/12 07:56 Order name: Lipase; Complete Time: 09:10 rn 10/12 07:56 Order name: CT Abd/Pelvis - IV Contrast Only; Complete Time: 09:17 rn 10/12 07:56 Order name: US Abdomen Limited; Complete Time: 09:10 rn 10/12 07:56 Order name: IV Saline Lock; Complete Time: 08:09 rn 10/12 07:56 Order name: Labs collected and sent; Complete Time: 08:09 rn Administered Medications: 08:09 Drug: Famotidine IVP 20 mg IVP once; dilute with 10 mL 0.9% NaCl; give over 2 minutes bp Route: IVP; Site: right forearm; 16:05 Follow up: Response: No adverse reaction bp 08:09 Drug: morphine IVP or IV 4 mg IVP once over 4 mins Route: IVP; Infused Over: 4 mins; bp Site: right forearm; 16:05 Follow up: Response: No adverse reaction bp 08:10 Drug: Ondansetron IVP 4 mg IVP once; over 2 minutes Route: IVP; Site: right forearm; bp 16:05 Follow up: Response: No adverse reaction bp 10:00 Drug: Rocephin IV 1 grams IV at calculated rate once; Given slow IV push per pharmacy bp instructions Route: IV; Rate: calculated rate; Site: right forearm; 15:16 Follow up: IV Status: Completed infusion bp 15:15 Drug: morphine IVP or IV 4 mg IVP once over 4 mins Route: IVP; Infused Over: 4 mins; bp Site: right antecubital; 16:04 Follow up: Response: No adverse reaction bp Disposition Summary: 10/12/24 09:28 Hospitalization Ordered Notes: Hospitalization Status: Observation rn Provider: Mark Abebe rn Condition: Stable rn Problem: new rn Symptoms: are unchanged rn Bed/Room Type: Standard rn Location: Telemetry/MedSurg (observation)(10/12/24 15:37) bd Room Assignment: 225(10/12/24 15:37) bd Diagnosis - Acute pancreatitis without necrosis or infection, unspecified rn Forms: - Medication Reconciliation Form rn - SBAR form rn - Leadership Thank You Letter rn Signatures: Dispatcher [employer] EDMS Gisela Rodriguez bd Davy Abebe MD MD rn Ramone, Donn, RN RN bp Corrections: (The following items were deleted from the chart) 07:57 07:57 CBC+H.LAB.BRZ ordered. EDMS EDMS 07:57 07:57 COMPREHENSIVE METABOLIC PANEL+C.LAB.BRZ ordered. EDMS EDMS 07:57 07:57 LIPASE+C.LAB.BRZ ordered. EDMS EDMS 07:57 07:57 Abdomen Pelvis W Con+CT.RAD.BRZ ordered. EDMS EDMS 07:57 07:57 Abdomen Limited+US.RAD.BRZ ordered. EDRI EDMS 10:31 09:28 Telemetry/MedSurg (observation) susan bd 10:31 09:28 rn bd 15:37 10:31 BR ER HOLD bd bd 15:37 10:31 ERHOLD- bd bd
--- NOTE | 2024-10-12 09:29 | ER ---
Nurse's Notes [facility] Name: Noah Putnam Age: 53 yrs Sex: Male : 1970 Arrival Date: 10/12/2024 Time: 07:41 Bed 24 Private MD: Diagnosis: Acute pancreatitis without necrosis or infection, unspecified Presentation: 10/12 07:53 Chief complaint: Patient states: EPIGASTRIC PAIN RADIATING TO R FLANK SINCE THURSDAY. bp Coronavirus screen: At this time, the client does not indicate any symptoms associated with coronavirus-19. Ebola Screen: No symptoms or risks identified at this time. Initial Sepsis Screen: Does the patient meet any 2 criteria? No. Patient's initial sepsis screen is negative. Does the patient have a suspected source of infection? No. Patient's initial sepsis screen is negative. Risk Assessment: Do you want to hurt yourself or someone else? Patient reports no desire to harm self or others. Onset of symptoms is unknown. 07:53 Method Of Arrival: Ambulatory bp 07:53 Acuity: BREEZY 3 bp Triage Assessment: 07:54 General: Appears in no apparent distress. uncomfortable, Behavior is calm, cooperative, bp appropriate for age. Pain: Complains of pain in abdomen. EENT: No deficits noted. Neuro: No deficits noted. Cardiovascular: No deficits noted. Respiratory: No deficits noted. GI: Reports epigastric pain. : No signs and/or symptoms were reported regarding the genitourinary system. Derm: No deficits noted. Musculoskeletal: No deficits noted. Historical: - Allergies: 07:54 Bee Venom; bp - Home Meds: 07:54 amlodipine 10 mg tab 1 tab once daily [Active]; lisinopril 10 mg Oral tab 1 tab once bp daily [Active]; - PMHx: 07:54 chronic kidney disease; Chronic Pancreatitis; Herniated disc; Hypertension; bp - PSHx: 07:54 left arm surgery; bp - Immunization history:: Adult Immunizations up to date. - Infectious Disease History:: Denies. - Social history:: Smoking status: Patient denies any tobacco usage or history of. - Family history:: not pertinent. - Hospitalizations: : No recent hospitalization is reported. Screenin:55 [facility] ED Fall Risk Assessment (Adult) History of falling in the last 3 months, bp including since admission No falls in past 3 months (0 pts) Confusion or Disorientation No (0 pts) Intoxicated or Sedated No (0 pts) Impaired Gait No (0 pts) Mobility Assist Device Used No (0 pt) Altered Elimination No (0 pt) Score/Fall Risk Level 0 - 2 = Low Risk Oriented to surroundings. Abuse screen: Denies threats or abuse. Denies injuries from another. Nutritional screening: No deficits noted. Tuberculosis screening: No symptoms or risk factors identified. Assessment: 07:55 General: SEE TRIAGE NOTE. bp 10:00 Reassessment: ADMIT INITIATED. bp 12:00 Reassessment: No changes from previously documented assessment. Patient is alert, bp oriented x 3, equal unlabored respirations, skin warm/dry/pink. 14:00 Reassessment: No changes from previously documented assessment. Patient is alert, bp oriented x 3, equal unlabored respirations, skin warm/dry/pink. 16:00 Reassessment: No changes from previously documented assessment. Patient is alert, bp oriented x 3, equal unlabored respirations, skin warm/dry/pink. Vital Signs: 07:53 BP 139 / 97; Pulse 74; Resp 16; Temp 97.5; Pulse Ox 95% ; Weight 120.2 kg; Height 6 ft. bp 4 in. ; 08:00 BP 150 / 98; Pulse 66; Resp 15; Pulse Ox 94% ; bp 11:00 BP 132 / 69; Pulse 61; Resp 15; Pulse Ox 94% ; bp 13:00 BP 151 / 104; Pulse 63; Resp 15; Pulse Ox 95% ; bp 15:00 BP 147 / 83; Pulse 69; Resp 15; Pulse Ox 94% ; bp 07:53 Body Mass Index 32.26 (120.20 kg, 193.04 cm) bp ED Course: 07:44 Patient arrived in ED. mr 07:44 Davy Abebe MD is Attending Physician. rn 07:52 Donn Pack, LINUS is Primary Nurse. bp 07:54 Triage completed. bp 07:54 Arm band placed on. bp 07:55 Patient has correct armband on for positive identification. bp 08:00 Inserted saline lock: 20 gauge in right forearm, using aseptic technique. Blood bp collected. Flushed with 10 mL NS. 08:00 Initial lab(s) drawn, by me, sent to lab. bp 08:19 CT Abd/Pelvis - IV Contrast Only In Process Unspecified. EDMS 08:28 US Abdomen Limited In Process Unspecified. EDMS 09:28 Mark Abebe MD is Hospitalizing Provider. rn 16:05 No provider procedures requiring assistance completed. Patient admitted, IV remains in bp place. Administered Medications: 08:09 Drug: Famotidine IVP 20 mg IVP once; dilute with 10 mL 0.9% NaCl; give over 2 minutes bp Route: IVP; Site: right forearm; 16:05 Follow up: Response: No adverse reaction bp 08:09 Drug: morphine IVP or IV 4 mg IVP once over 4 mins Route: IVP; Infused Over: 4 mins; bp Site: right forearm; 16:05 Follow up: Response: No adverse reaction bp 08:10 Drug: Ondansetron IVP 4 mg IVP once; over 2 minutes Route: IVP; Site: right forearm; bp 16:05 Follow up: Response: No adverse reaction bp 10:00 Drug: Rocephin IV 1 grams IV at calculated rate once; Given slow IV push per pharmacy bp instructions Route: IV; Rate: calculated rate; Site: right forearm; 15:16 Follow up: IV Status: Completed infusion bp 15:15 Drug: morphine IVP or IV 4 mg IVP once over 4 mins Route: IVP; Infused Over: 4 mins; bp Site: right antecubital; 16:04 Follow up: Response: No adverse reaction bp Medication: 07:55 VIS not applicable for this client. bp Outcome: 09:28 Decision to Hospitalize by Provider. rn 16:05 Admitted to ER Hold. Please see [facility] for further documentation. bp 16:05 Condition: stable 16:05 Instructed on the need for admit, 17:01 Patient left the ED. bp Signatures: Dispatcher [employer] EDMS Lona Pang, Davy Napier MD MD rn Peltier, Brian, RN RN bp
[2024-10-12] MEDS ORDERED: CEFTRIAXONE 1000 MG/VIAL ONE (09:46)
[2024-10-12] MEDS ORDERED: NA CHLORIDE 0.9% 100 ML ONE (09:46)
[2024-10-12 12:33] VITALS: BMI 32.2
[2024-10-12] MEDS: Ringers Lactate 1,000 ML IV SCH (15:18)
[2024-10-12] MEDS ORDERED: Ringers Lactate 1,000 ML IV ONE (15:43)
--- NOTE | 2024-10-12 16:03 | P.HP ---
Certification for Inpatient Patient admitted to: Inpatient With expected LOS: >2 Midnights Patient will require the following post-hospital care: None Practitioner: I am a practitioner with admitting privileges, knowledge of patient current condition, hospital course, and medical plan of care. Services: Services provided to patient in accordance with Admission requirements found in Title 42 Section 412.3 of the Code of Federal Regulations Patient History Date of Service: 10/12/24 Reason for admission: Acute pancreatitis History of Present Illness: 53-year-old male with history of CKD, chronic pancreatitis, hypertension presents to the emergency department with chief complaint of epigastric pain. His pain has been ongoing for the last 3 to 4 days but became significantly worse today with pain radiating around his right flank to his back. He was evaluated in the emergency department his initial lipase is 38, CBC is unremarkable CT of the abdomen and pelvis was performed which revealed subtle edema around the head of the pancreas which could reflect early or mild acute pancreatitis. Subsequent abdominal ultrasound was performed which showed gallbladder wall thickening which may be reactive, no sonographic evidence of acute cholecystitis otherwise. Mildly dilated CBD measuring 7 mm through the duct appears in normal caliber on the CT with expected tapering distally. Patient denies alcohol use, unclear reason that he developed chronic pancreatitis but he has had multiple hospitalizations for chronic pancreatitis at other facilities. His LFTs are within normal limits. Patient will be admitted for further evaluation and management of acute on chronic pancreatitis. Allergies No Known Allergies Allergy (Unverified 10/14/21 21:16) Home Medications: Amlodipine Besylate [Norvasc] 10 mg PO DAILY 10/14/21 Lisinopril [Zestril] 10 mg PO DAILY 10/14/21 Gabapentin [Neurontin*] 100 mg PO TID 30 Days #90 cap 10/16/21 Methylprednisolone [Medrol dosepack] 4 mg PO DIRECTED #1 jerel 10/16/21 - Past Medical/Surgical History Diabetic: No -: HTN -: herniated disc -: Pancreatitis -: pins in Left wrist Psychosocial/ Personal History: Patient lives at home with his fiance. - Family History Father -: Hypertension, Diabetes, Other (see notes) Mother -: Hypertension - Social History Smoking Status: Unknown if ever smoked Alcohol use: No CD- Drugs: No Place of Residence: Home Review of Systems 10-point ROS is otherwise unremarkable Gastrointestinal: Nausea, Abdominal Pain Physical Examination - Physical Exam General: Alert, In no apparent distress, Oriented x3 HEENT: Atraumatic, PERRLA, EOMI Neck: Supple, 2+ carotid pulse no bruit, No LAD Respiratory: Clear to auscultation bilaterally, Normal air movement Cardiovascular: Regular rate/rhythm, Normal S1 S2 Gastrointestinal: Normal bowel sounds, Tenderness (Epigastric tenderness) Musculoskeletal: No tenderness Integumentary: No rashes Neurological: Normal gait, Normal speech, Normal strength at 5/5 x4 extr, Normal affect - Studies Laboratory Data (last 24 hrs) 10/12/24 10/12/24 08:08 08:08 WBC 6.40 Hgb 15.3 Hct 45.1 Plt Count 226 Sodium 138 Potassium 3.9 BUN 12 Creatinine 0.97 Glucose 136 H Total Bilirubin 0.3 AST 22 ALT 32 Alkaline Phosphatase 63 Lipase 38 Assessment and Plan - Plan Assessment: Acute on chronic pancreatitis Hypertension Plan: Acute on chronic pancreatitis N.p.o., IVF, as needed pain medications and antiemetics Trend lipase, check LFTs in the morning Advance diet as tolerated Hypertension Continue home medication when verified DVT PPX: Lovenox Code status: Full Discharge Plan: Home Plan to discharge in: 48 Hours - Advance Directives Does patient have a Living Will: No Does patient have a Durable POA for Healthcare: No - Code Status/Comfort Care Code Status Assessed: Yes (Full code) Critical Care: No Time Spent Managing Pts Care (In Minutes): 64
[2024-10-12] MEDS: ENOXAPARIN 40 MG/0.4 ML SQ SCH (17:10)
[2024-10-12] MEDS: MORPHINE 4 MG/ML SYR IV PRN (20:58)
[2024-10-12] MEDS: ONDANSETRON 4 MG/2 ML VIAL IV PRN (20:59)
[2024-10-13 05:49] LABS: Absolute Eosinophils 0.1 K/uL (0-0.5); Absolute Lymphocytes (CBC) 2.7 K/uL (0.7-4.9); Absolute Monocytes 0.5 K/uL (0.1-1.3); Absolute Neutrophil 2.8 K/uL (1.8-8.0); Basophils % 0.4 % (0-1.3); Eosinophils % 1.4 % (0-4.4); Hematocrit 41.7 % (39.6-49.0); Hemoglobin 14.6 g/dL (13.6-17.9); Lymphocytes % 44.2 % (15.3-44.8); MCH 30.4 pg (27.0-35.0); MCV 86.7 fL (80-100); Monocytes % 8.7 % (3.3-12.3); Neutrophils % 45.3 % (41.7-73.7); Nucleated Red Blood Cells % 0.1 % (0-0); Platelets 202 thou/uL (152-406); RBC Red Blood Cell Count 4.81 M/uL (4.33-5.43); Red Cell Distribution Width 13.5 % (12.1-15.2)
[2024-10-13 05:50] LABS: Albumin 3.4 g/dL (3.4-5.0); Bilirubin Total 0.6 mg/dL (0.2-1.0); Globulin 3.5 g/dL (2.3-3.5); Magnesium 1.9 mg/dL (1.6-2.4); Phosphorus 3.8 mg/dL (2.5-4.9); Protein, Total 6.9 g/dL (6.4-8.2)
[2024-10-13 07:26] VITALS: O2SAT 97
[2024-10-13] MEDS: HYDROMORPHONE HCL 1 MG/ML INJ IV PRN (08:52)
--- NOTE | 2024-10-13 10:17 | P.PN ---
Date of Service: 10/13/24 Subjective: Still with significant pain overnight Denies vomiting No relief with medication so far Pain radiating from abdomen to right flank and back ROS: 10 point ROS as noted above, otherwise negative Physical exam GEN: Alert, oriented, NAD HEENT: Normal conjunctiva, sclera anicteric CV: Regular rate and rhythm, no edema Pulm: Nonlabored respirations on room air ABD: Soft, moderate epigastric tenderness, nondistended MSK: No joint tenderness Integumentary: No rashes Neuro: Normal speech, normal affect Vitals reviewed Assessment: Acute on chronic pancreatitis Hypertension Plan: Acute on chronic pancreatitis Clear liquids, IVF, as needed pain medications and antiemetics Lipase still elevated, LFTs within normal limits Minimal relief with morphine, will switch to Dilaudid for better pain control Hypertension Continue home medication when verified DVT PPX: Lovenox Code status: Full Discharge Plan: Home Plan to discharge in: 48 Hours - Advance Directives Does patient have a Living Will: No Does patient have a Durable POA for Healthcare: No Time Spent Managing Pts Care (In Minutes): 35
[2024-10-13] MEDS: TAMSULOSIN 0.4 MG SR CAP PO SCH (19:59)
[2024-10-14 05:31] LABS: Absolute Eosinophils 0.1 K/uL (0-0.5); Absolute Lymphocytes (CBC) 2.1 K/uL (0.7-4.9); Absolute Monocytes 0.6 K/uL (0.1-1.3); Absolute Neutrophil 2.6 K/uL (1.8-8.0); Basophils % 0.3 % (0-1.3); Eosinophils % 1.2 % (0-4.4); Hemoglobin 14.8 g/dL (13.6-17.9); Lymphocytes % 39.2 % (15.3-44.8); MCH 30.6 pg (27.0-35.0); MCHC 36.1 g/dL (32.0-36.0); MCV 84.9 fL (80-100); Monocytes % 10.4 % (3.3-12.3); Neutrophils % 48.9 % (41.7-73.7); Nucleated Red Blood Cells % 0.1 % (0-0); Platelets 182 thou/uL (152-406); RBC Red Blood Cell Count 4.83 M/uL (4.33-5.43); Red Cell Distribution Width 12.9 % (12.1-15.2)
[2024-10-14 06:04] LABS: Albumin 3.3 g/dL (3.4-5.0); Albumin/Globulin Ratio 0.8 (1.1-1.8); Anion Gap 7.1 mEq/L (5.0-15.0); Bilirubin Total 0.7 mg/dL (0.2-1.0); Globulin 3.9 g/dL (2.3-3.5); Magnesium 2.1 mg/dL (1.6-2.4); Phosphorus 4.2 mg/dL (2.5-4.9); Potassium 4.1 mEq/L (3.5-5.1); Protein, Total 7.2 g/dL (6.4-8.2)
[2024-10-14 08:37] LABS: Blood Morphology Comment NOT SEEN (NOT SEEN); Platelet Estimate ADEQ; White Blood Cell Scan OK (OK)
[2024-10-14] MEDS ORDERED: SODIUM CHLORIDE 0.9% 10ML INJ IV PRN (08:44)
[2024-10-14] MEDS: PANTOPRAZOLE 40 MG INJ IVP SCH (09:04)
--- NOTE | 2024-10-14 10:23 | RAD REPORT ---
EXAM:Extremity Venous Uni Ltd HISTORY: Left leg pain TECHNIQUE: Sonographic evaluation left lower extremity performed.Grayscale, color and spectral analys is performed on all vessels COMPARISON: None. FINDINGS: Left common femoral, superficial femoral, greater saphenous, popliteal and posterior tibial veins are compressible and demonstrate augmentation. Doppler demonstrates good flow. IMPRESSION: No evidence of deep venous thrombosis involving the left lower extremity.
--- NOTE | 2024-10-14 14:21 | P.PN ---
Date of Service: 10/14/24 Subjective: Still with significant pain and some vomiting overnight Dilaudid helping more than morphine was Pain radiating from abdomen to right flank and back ROS: 10 point ROS as noted above, otherwise negative Physical exam GEN: Alert, oriented, NAD HEENT: Normal conjunctiva, sclera anicteric CV: Regular rate and rhythm, no edema Pulm: Nonlabored respirations on room air ABD: Soft, moderate epigastric tenderness, nondistended MSK: No joint tenderness Integumentary: No rashes Neuro: Normal speech, normal affect Vitals reviewed Assessment: Acute on chronic pancreatitis Hypertension Plan: Acute on chronic pancreatitis Clear liquids, IVF, as needed pain medications and antiemetics Lipase still not elevated, LFTs within normal limits Minimal relief with morphine, will switch to Dilaudid for better pain control General surgery to also evaluate patient C/O left leg pain and swelling-negative for DVT Hypertension Resumed flomax DVT PPX: Lovenox Code status: Full Discharge Plan: Home Plan to discharge in: 48 Hours - Advance Directives Does patient have a Living Will: No Does patient have a Durable POA for Healthcare: No Time Spent Managing Pts Care (In Minutes): 35
[2024-10-14] MEDS: HYDRALAZINE HCL 20 MG/ML VIAL IV PRN (21:19)
--- NOTE | 2024-10-14 22:36 | CON ---
Date of Consultation: 10/14/2024 Reason For Service: Pancreatitis and also gallbladder wall thickening suggesting acalculous cholecys titis. Indications: This is a case of a 53-year-old patient with long history of pancreatitis. First time I see him, he is confused about his tests and he claimed that he has just not been explained properly , so I spent more than an hour in the room, printed out the CAT scan, printed out the ultrasound, aman irene diagram of the anatomy, and explained [id number]. Once again took me more than an hour, listened to him to his previous report. He even showed me his so many tests he has done and at [facility] an MRCP done in that area. He has chronic abdominal pain, epigastric. He is frustrated by that. Been seen many doctors and nobody seems to have any solution for that and he cannot understand that part. Now he has pain moved a little bit to the right side and he is concerned that gallbladder may be cause of that. On the ultrasound, it shows mild swelling of the gallbladder that they believe co uld be reactive from the pancreatitis. They are not completely sure and to clarify that is when I go t called to the case. He denies any trauma. He denies any smoking, any drinking. Denies any new me dication. Denies any weight loss medications. We discussed with him the differential diagnosis of p ancreatitis, at least 15 to 16 different cause of pancreatitis, none of them he can recall. The pain is in the right upper quadrant. It is a little different from before. A little more extensive than the epigastric pain. Feels a little better. No nausea. No vomiting at this moment. A little bit of bloating. No dysuria, hematuria, hematochezia, melena. No recent traveling out of the country. No family member sick at home. Review of Systems: Ten points otherwise unremarkable. Allergies: NONE. Medications: Norvasc, Zestril, Neurontin. Even as an outpatient I saw some pancreatic medications. Methylprednisolone, also Medrol Dosepak. Medical Issues: Once again pancreatitis, hypertension. He claimed he may have some herniated disks. Past Surgical History: Include left wrist surgery. Family History: Includes hypertension and diabetes. Social History: He does not smoke. He does not drink alcohol. Physical Examination: Vital Signs: Reviewed. General: Patient is awake and alert. No distress. HEENT: Pupils are equal and reactive. Anicteric. Neck: Supple. Chest: Clear. Heart: S1 and S2. Abdomen: Epigastric tenderness. No Gomez sign today, although he claimed that when they did the ul trasound he thought he had a Gomez sign. Rectal: Deferred. EXTREMITIES: Good capillary refill. Laboratory Data: Blood work shows WBC count of 5.0 with hemoglobin of 14.8 and platelets of 182. Pot assium 4.1, BUN 11, creatinine is 0.98, calcium is 8.7, lipase is 38. I do not see any triglycerides . CAT scan of the abdomen and pelvis and ultrasound: There is some I printed out the CAT scan and the ultrasound, even the correction of impression, so he has no doubt about the findings. Initially, the CAT scan shows may be appendicitis, but then the radiologist corrected and say it is p ancreatitis. We also discussed about his umbilical hernia, discussed about the of the head of the pancreas. Also the presence of diverticula but no diverticulitis. Also discussed with him t he degenerative changes seen between L5 and S1. We discussed with him for some of those findings, he has to see his primary doctor. They have the same situation. It is basically they see some gallbla dder wall thickening, although they believe it may be reactive as he has history of pancreatitis. Ne gative for cholelithiasis and they say at that moment, there was no Gomez sign. Assessment: This is a 53-year-old patient with history of pancreatitis at least on CAT scan. Lipase is normal at this moment. He has it for a long time. Multiple doctors, multiple admissions, imagin g including MRCPs, CAT scans, and ultrasound. I do not see a HIDA scan. I would like to obtain HIDA scan either here or as an outpatient that will help me once again diagnose his gallbladder a little bit better. At this moment, we have no gallstones. We cannot tell that there is absolutely no evide nce of cholecystitis. There is some gallbladder wall edema, but we should treat him with antibiotics first and see if that improves. If we see it does not improve, then we may have a point for acalcul ous cholecystitis and then if he failed to take antibiotics and to improve, then we may do a HIDA sca n to prove the cholecystitis and also see if he has biliary dyskinesia, but I fully explained to him that we cannot establish the full association between that and his pancreatitis. He has to understan d that. He verbalized he does. There are so many theories that he may have stones before the stone passed through the common bile duct went into the intestines and crossed all that, but once again hav e no proof of that. He understands that. Once again we spent more than hour there. He seems to marlene balizing back, seems to be very receptive and now very happy that he understands the anatomy better. One of his friends is present. We made sure his friend also understands this. I left the informati on and the printout of his studies with him. FARZAD Voice ID: [id number] Report ID: [id number]
[2024-10-15 05:47] LABS: Absolute Eosinophils 0.1 K/uL (0-0.5); Absolute Lymphocytes (CBC) 2.2 K/uL (0.7-4.9); Absolute Monocytes 0.6 K/uL (0.1-1.3); Absolute Neutrophil 2.7 K/uL (1.8-8.0); Basophils % 0.4 % (0-1.3); Eosinophils % 1.3 % (0-4.4); Hematocrit 40.6 % (39.6-49.0); Hemoglobin 14.3 g/dL (13.6-17.9); Lymphocytes % 39.4 % (15.3-44.8); MCH 30.2 pg (27.0-35.0); MCHC 35.1 g/dL (32.0-36.0); MPV 7.8 fL (7.6-11.3); Neutrophils % 48.9 % (41.7-73.7); Nucleated Red Blood Cells % 0.1 % (0-0); Platelets 193 thou/uL (152-406); RBC Red Blood Cell Count 4.72 M/uL (4.33-5.43); Red Cell Distribution Width 13.2 % (12.1-15.2)
[2024-10-15 06:09] LABS: Albumin 3.4 g/dL (3.4-5.0); Albumin/Globulin Ratio 0.9 (1.1-1.8); Anion Gap 9.7 mEq/L (5.0-15.0); Bilirubin Total 0.8 mg/dL (0.2-1.0); Globulin 3.7 g/dL (2.3-3.5); Phosphorus 3.6 mg/dL (2.5-4.9); Potassium 3.7 mEq/L (3.5-5.1); Protein, Total 7.1 g/dL (6.4-8.2)
--- NOTE | 2024-10-15 15:21 | P.PN ---
Date of Service: 10/15/24 Subjective: Improving Tolerating clear liquids ROS: 10 point ROS as noted above, otherwise negative Physical exam GEN: Alert, oriented, NAD HEENT: Normal conjunctiva, sclera anicteric CV: Regular rate and rhythm, no edema Pulm: Nonlabored respirations on room air ABD: Soft, moderate epigastric tenderness, nondistended MSK: No joint tenderness Integumentary: No rashes Neuro: Normal speech, normal affect Vitals reviewed Assessment: Acute on chronic pancreatitis Hypertension Plan: Acute on chronic pancreatitis Clear liquids, IVF, as needed pain medications and antiemetics Lipase still not elevated, LFTs within normal limits Minimal relief with morphine, will switch to Dilaudid for better pain control General surgery also following Plan for A thursday C/O left leg pain and swelling-negative for DVT Hypertension Resumed flomax DVT PPX: Lovenox Code status: Full Discharge Plan: Home Plan to discharge in: 48 Hours - Advance Directives Does patient have a Living Will: No Does patient have a Durable POA for Healthcare: No Time Spent Managing Pts Care (In Minutes): 35
--- NOTE | 2024-10-15 21:19 | RAD REPORT ---
EXAMINATION: ONE VIEW CHEST XR CLINICAL INDICATION: Male, 53 years old.,SOB TECHNIQUE: Frontal chest projection is submitted. Examination is limited by patient positioning and t echnique. COMPARISON: 09/07/2024 FINDINGS: The lungs are well inflated and clear. No pneumothorax or sizable effusion. The heart is normal in s ize. Mediastinal contours are unremarkable. IMPRESSION: No acute intrathoracic abnormalities.
[2024-10-15] MEDS: PIPER TAZO 3.375 GM in NA CHLORIDE 0.9% 100 ML IV SCH (21:22)
[2024-10-16 06:13] LABS: Absolute Eosinophils 0.1 K/uL (0-0.5); Absolute Lymphocytes (CBC) 2.1 K/uL (0.7-4.9); Absolute Monocytes 0.7 K/uL (0.1-1.3); Absolute Neutrophil 2.8 K/uL (1.8-8.0); Basophils % 0.5 % (0-1.3); Eosinophils % 1.6 % (0-4.4); Hemoglobin 14.2 g/dL (13.6-17.9); MCH 30.4 pg (27.0-35.0); MCHC 35.4 g/dL (32.0-36.0); MCV 85.7 fL (80-100); MPV 8.2 fL (7.6-11.3); Monocytes % 12.4 % (3.3-12.3); Neutrophils % 49.5 % (41.7-73.7); Platelets 191 thou/uL (152-406); RBC Red Blood Cell Count 4.66 M/uL (4.33-5.43); Red Cell Distribution Width 13.1 % (12.1-15.2)
[2024-10-16 06:37] LABS: Albumin 3.4 g/dL (3.4-5.0); Albumin/Globulin Ratio 0.9 (1.1-1.8); Anion Gap 6.8 mEq/L (5.0-15.0); Bilirubin Total 0.7 mg/dL (0.2-1.0); Globulin 3.6 g/dL (2.3-3.5); Magnesium 2.1 mg/dL (1.6-2.4); Phosphorus 3.8 mg/dL (2.5-4.9); Potassium 3.8 mEq/L (3.5-5.1)
[2024-10-16] MEDS: lisinopriL 10 MG TAB PO SCH (09:30)
[2024-10-16] MEDS: AMLODIPINE 10 MG TAB PO SCH (09:44)
--- NOTE | 2024-10-16 15:28 | P.PN ---
Date of Service: 10/16/24 Subjective: Improving Tolerating Full liquids HIDA in AM ROS: 10 point ROS as noted above, otherwise negative Physical exam GEN: Alert, oriented, NAD HEENT: Normal conjunctiva, sclera anicteric CV: Regular rate and rhythm, no edema Pulm: Nonlabored respirations on room air ABD: Soft, moderate epigastric tenderness, nondistended MSK: No joint tenderness Integumentary: No rashes Neuro: Normal speech, normal affect Vitals reviewed Assessment: Acute on chronic pancreatitis Hypertension Plan: Acute on chronic pancreatitis Clear liquids, IVF, as needed pain medications and antiemetics Lipase still not elevated, LFTs within normal limits Minimal relief with morphine, will switch to Dilaudid for better pain control Spacing out dilaudid, added norco 2/2 General surgery also following Plan for HIDA thursday C/O left leg pain and swelling-negative for DVT Hypertension Resumed flomax, amlodipine and lisinopril DVT PPX: Lovenox Code status: Full Discharge Plan: Home Plan to discharge in: 48 Hours - Advance Directives Does patient have a Living Will: No Does patient have a Durable POA for Healthcare: No Time Spent Managing Pts Care (In Minutes): 35
[2024-10-16] MEDS: HYDROMORPHONE HCL 1 MG/ML INJ IV PRN (16:02)
[2024-10-16] MEDS: PIPER TAZO 3.375 GM in NA CHLORIDE 0.9% 100 ML IV SCH (16:07)
[2024-10-17 07:21] LABS: Hematocrit 40.3 % (39.6-49.0); Hemoglobin 14.4 g/dL (13.6-17.9); MCH 30.3 pg (27.0-35.0); MCHC 35.7 g/dL (32.0-36.0); MCV 84.9 fL (80-100); MPV 8.4 fL (7.6-11.3); Platelets 195 thou/uL (152-406); RBC Red Blood Cell Count 4.75 M/uL (4.33-5.43); Red Cell Distribution Width 13.3 % (12.1-15.2)
[2024-10-17 07:45] LABS: Albumin 3.2 g/dL (3.4-5.0); Albumin/Globulin Ratio 0.8 (1.1-1.8); Anion Gap 6.8 mEq/L (5.0-15.0); Bilirubin Total 0.6 mg/dL (0.2-1.0); Globulin 3.9 g/dL (2.3-3.5); Potassium 3.8 mEq/L (3.5-5.1); Protein, Total 7.1 g/dL (6.4-8.2)
[2024-10-17] MEDS: HYDROCODONE/APAP 5/325 MG TAB PO PRN (11:19)
--- NOTE | 2024-10-17 12:54 | RAD REPORT ---
EXAMINATION: Hepatobiliary System W/ Ph CLINICAL INDICATION: Abdominal pain TECHNIQUE: Hepatobiliary imaging was acquired over the abdomen for 60 minutes following intravenous a dministration of radiotracer. Slow intravenous administration of CCK. 2.4 mcg Additional imaging was acquired over the abdomen for 30 minutes. Gallbladder ejection fraction was then calculated. RADIOPHARMACEUTICAL: 5.8 mCi Technetium 99m Mebrofenin. COMPARISON: No prior exams. FINDINGS: There is prompt accumulation of the radiopharmaceutical in the liver and excretion into the biliary d uctal system, gallbladder, and small bowel. Gallbladder ejection fraction was calculated at 83% (normal range >35%). Patient was asymptomatic prior to CCK. Patient complained of mild bloating during the administration of CCK IMPRESSION: No evidence of acute cholecystitis Normal gallbladder contraction
[2024-10-17 12:58] VITALS: BP 153/91; TEMP 97.9
--- NOTE | 2024-10-17 13:47 | P.DS ---
Admission Date: 10/12/24 Discharge Date: 10/17/24 Disposition: ROUTINE DISCHARGE Discharge Condition: GOOD Reason for Admission: Acute pancreatitis Brief History of Present Illness: 53-year-old male with history of CKD, chronic pancreatitis, hypertension presents to the emergency department with chief complaint of epigastric pain. His pain has been ongoing for the last 3 to 4 days but became significantly worse today with pain radiating around his right flank to his back. He was evaluated in the emergency department his initial lipase is 38, CBC is unremarkable CT of the abdomen and pelvis was performed which revealed subtle edema around the head of the pancreas which could reflect early or mild acute pancreatitis. Subsequent abdominal ultrasound was performed which showed gallbladder wall thickening which may be reactive, no sonographic evidence of acute cholecystitis otherwise. Mildly dilated CBD measuring 7 mm through the duct appears in normal caliber on the CT with expected tapering distally. Patient denies alcohol use, unclear reason that he developed chronic pancreatitis but he has had multiple hospitalizations for chronic pancreatitis at other facilities. His LFTs are within normal limits. Patient will be admitted for further evaluation and management of acute on chronic pancreatitis. Hospital Course: Assessment: Acute on chronic pancreatitis Hypertension Patient was admitted to the hospital for acute on chronic pancreatitis. He was also seen by general surgery for evaluation of his right upper quadrant pain. His initial CT of the abdomen pelvis showed subtle edema around the head of the pancreas which could reflect early or mild acute appendicitis. Subsequent abdominal ultrasound shows gallbladder wall thickening which may be reactive, no sonographic evidence of acute cholecystitis otherwise. Mildly dilated CBD measuring 7 mm through the duct appears in normal caliber on the CT with expected tapering distally. Patient was able to show general surgery results from his previous ERCP and other testing, the only test he had not had was a HIDA scan, HIDA scan was performed during his hospitalization and normal. He has been tolerating a full liquid diet and pain is much improved, he is stable for outpatient follow-up with general surgery and GI. He will be sent short course of pain medication antibiotics as well as refills for his Creon and tamsulosin which he needed. Vital Signs/Physical Exam: Temp Pulse Resp BP Pulse Ox 97.9 F 75 18 153/91 H 98 10/17/24 12:00 10/17/24 12:00 10/17/24 12:00 10/17/24 12:00 10/17/24 12:00 General: Alert, In no apparent distress, Oriented x3 HEENT: Atraumatic, PERRLA Neck: Supple, JVD not distended Respiratory: Clear to auscultation bilaterally, Normal air movement Cardiovascular: Regular rate/rhythm, Normal S1 S2 Gastrointestinal: Normal bowel sounds, No tenderness Musculoskeletal: No tenderness Integumentary: No rashes Neurological: Normal speech Laboratory Data at Discharge: WBC 4.40 thou/uL (4.3-10.9) 10/17/24 06:35 Hgb 14.4 g/dL (13.6-17.9) 10/17/24 06:35 Hct 40.3 % (39.6-49.0) 10/17/24 06:35 Plt Count 195 thou/uL (152-406) 10/17/24 06:35 Sodium 138 mEq/L (136-145) 10/17/24 06:35 Potassium 3.8 mEq/L (3.5-5.1) 10/17/24 06:35 BUN 12 mg/dL (7-18) 10/17/24 06:35 Creatinine 1.17 mg/dL (0.70-1.30) 10/17/24 06:35 Glucose 116 mg/dL (74-106) H 10/17/24 06:35 Phosphorus 3.8 mg/dL (2.5-4.9) 10/16/24 05:32 Magnesium 2.1 mg/dL (1.6-2.4) 10/16/24 05:32 Total Bilirubin 0.6 mg/dL (0.2-1.0) 10/17/24 06:35 AST 28 U/L (15-37) 10/17/24 06:35 ALT 39 U/L (16-61) 10/17/24 06:35 Alkaline Phosphatase 57 U/L (45-117) 10/17/24 06:35 Lipase 32 U/L (13-75) 10/17/24 06:35 Home Medications: Amlodipine Besylate [Norvasc] 10 mg PO DAILY 10/14/21 Famotidine 10 mg PO DAILY 10/12/24 Gabapentin [Neurontin*] 300 mg PO PRN PRN 10/12/24 Lisinopril/Hydrochlorothiazide [Lisinopril-Hctz 10-12.5 mg Tab] 1 tab PO DAILY 10/12/24 Pantoprazole [Protonix Tab*] 40 mg PO DAILY 10/12/24 Sucralfate [Carafate] 1 tab PO DAILY 10/12/24 Amox/Clavulanate [Augmentin 875-125 Tab] 1 each PO BID 5 Days #10 tab 10/17/24 Hydrocodone 5/APAP 325 [Ryegate 5/325*] 1 tab PO Q8H PRN #15 tab 10/17/24 Lipase/Protease/Amylase [Creon Dr 12,000 Unit Capsule] 1 tab PO ACHS #120 cap 10/17/24 Tamsulosin [Flomax*] 0.4 mg PO BEDTIME #90 cap 10/17/24 New Medications: Amox/Clavulanate [Augmentin 875-125 Tab] 1 each PO BID 5 Days #10 tab Lipase/Protease/Amylase [Creon Dr 12,000 Unit Capsule] 1 tab PO ACHS #120 cap Tamsulosin [Flomax*] 0.4 mg PO BEDTIME #90 cap Hydrocodone 5/APAP 325 [Ryegate 5/325*] 1 tab PO Q8H PRN #15 tab PRN Reason: Pain Scale 5-7 (Moderate) Physician Discharge Instructions: Patient was admitted to the hospital for acute on chronic pancreatitis. He was also seen by general surgery for evaluation of his right upper quadrant pain. His initial CT of the abdomen pelvis showed subtle edema around the head of the pancreas which could reflect early or mild acute appendicitis. Subsequent abdominal ultrasound shows gallbladder wall thickening which may be reactive, no sonographic evidence of acute cholecystitis otherwise. Mildly dilated CBD measuring 7 mm through the duct appears in normal caliber on the CT with expected tapering distally. Patient was able to show general surgery results from his previous ERCP and other testing, the only test he had not had was a HIDA scan, HIDA scan was performed during his hospitalization and normal. He has been tolerating a full liquid diet and pain is much improved, he is stable for outpatient follow-up with general surgery and GI. He will be sent short course of pain medication antibiotics as well as refills for his Creon and tamsulosin which he needed. Diet: [place] Activity: Ad jackie Followup: Jack Petersen MD [ACTIVE - CAN ADMIT] - 1-2 Weeks Anselmo Genao DO [Primary Care Provider] - 1-2 Weeks Time spent managing pt's care (in minutes): 52
== END 2024-10-17 14:40 | disposition home or self-care (01) | DRG 440 ==
LOC: ER 07:41 → ERHOLD 10:29 → 2ND 16:14
PROVIDERS: ADMIT Hospitalist; ATTEND Hospitalist
DX: K85.90 Acute pancreatitis without necrosis or infection, unspecified (principal); K86.1 Other chronic pancreatitis; I12.9 Hypertensive chronic kidney disease with stage 1 through stage 4 chronic kidney disease, or unspecified chronic kidney disease; N18.9 Chronic kidney disease, unspecified; K83.8 Other specified diseases of biliary tract; Z91.030 Bee allergy status; Z79.899 Other long term (current) drug therapy
CPT/HCPCS: 36415; 71045; 74177; 76705; 78227; 80053; 83690; 83735; 84100; 85025; 85027; 93971; 99285; A9537; J0360; J0696; J1171; J1650; J2405; J2470; J2543; J2805; J7120; Q9967

== ENCOUNTER 2025-04-19 19:17 | Inpatient (IN) | payer OTHER, SELFPAY ==
[2025-04-19] MEDS ORDERED: ONDANSETRON 4 MG/2 ML VIAL ONE (19:34)
[2025-04-19] MEDS ORDERED: NA CHLORIDE 0.9% 1,000 ML ONE ×2 (19:34→21:37)
--- OUTSIDE RECORDS SUMMARY | 2025-04-19 19:34 | XMS REPORT | Continuity of Care Document ---
Author Name Unknown Address [address] [facility] [place]. [address] [place] [address] Organization [facility] [place] Address [address] [facility]. 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 Name Role Phone Emily Gaines Primary Care Physician Mayuri James Attending Clinician UnavailLION Minaya Attending Clinician Unavailable ANSELMO GENAO Attending Clinician Unavailable LEANDRO MANN Attending Clinician Unava ilable NEGRITA Attending Clinician Unavailable [id number] Attending Clinician Unavailable OMARI RAZA Attending Clinician Unavailable ADRI TAYLOR Attending Clinician Unavailable MD RICKI Attending Clinician Unavailab LUKE Lopez Attending Clinician Unavailable LUKE CLARKE Attending Clinician Unavailable Luke Clarke PA-C Attending Clinician [phone] [facility] Attending Clinician Unavailabl FOUZIA Bang Attending Clinician Unavailable GIBRAN MCADAMS Attending Clinician Unavailable BROOK ALLEN Attending Clinician Unav ailable LAB90 Attending Clinician Unavailable Trevor TAYLOR Attending Clinician Unavailable Trevor TAYLOR Attending Clinician Unavailable GERALD VIDAL Attending Clinician Unavailable LAB47 Attending Clinician Unavailable Karl Ferguson MD Attending Clinician [phone] OUTSIDE, REPORTED Attending Clinician UnavailElida Patrick MD Attending Clinician [phone] LETI RIVAS Attending Clinician Unavailable LETI RIVAS Attending Clinician Unavailable ABRAHAM ORANTES Attending Clinician Unavailable Abraham Orantes MD Attending Clinician [phone] Chavez Turner DO Attending Clinician [phone] CALLIE MUNOZ Attending Clinician Unavailable CALLIE MUNOZ Attending Clinician Unavailable ROCKY, MERLYN Attending Clinician Unavailable Doctor Unassigned, [place] Attending Clinician U rossailable ADAN CHESTER Attending Clinician Unav ailable KIARA RICHARDSON Attending Clinician Unava ilable JOHNATHAN AVILA Attending Clinician Unavail able Johnathan Avila MD Attending Clinician Jessie Paul Attending Clinician Unavaila JIMMY Mayfield Attending Clinician Unavailabl STEPHIE Cortes Attending Clinician Unavailab MIRIAM Cervantes Attending Clinician Unavailable MIRIAM LUDWIG Attending Clinician Unavailable Haresh Santamaria MD Attending Clinician + Jessie Gleason Attending Clinician Unavailab atilio [place], PhysPrem Attending Clinician Unavailab le LAB56 Attending Clinician Unavailable MANFRED LANE Attending Clinician UnavailAYDIN Peralta Attending Clinician Unavailable Carlo ALLEN, Aydin Attending Clinician + NATALI ALEXANDER Attending Clinician Unavailab Natali Glass DO Attending Clinician +[phone] ADELAIDE GOODWIN Attending Clinician Unavailable Adelaide Goodwin MD Attending Clinician [phone] HEMALATHA MORA Attending Clinician Unavailable Morgan FINANCIAL ADVISOR TRAINEE, Hemalatha Attending Clinician + [phone] JESSICA GONZALES Attending Clinician Unavailable Jessica Pradhan Attending Clinician [phone] SOHAM CLARKE Attending Clinician Unavaillupillo Clarke MD, Soham Sethi Attending Clinician +[phone] Jennifer FRENCHP, Lion Attending Clinician +[phone] MARK HERNANDEZ Attending Clinician Unavailable Mark Hernandez MD Attending Clinician [phone] Ellen Carroll RN Attending Clinician + [phone] EMELIA GALLEGO Attending Clinician Unavailable Madison Akers Attending Clinician [phone] Emelia Gallego DO Attending Clinician [phone] Felipe Valdivia Attending Clinician +[phone] FELIPE ORTEGA Attending Clinician Unavailable Elliot HICKS, Gabriella Richard Attending Clinician + [phone] Nurse, Adc Pob Immunization Attending Clinician Unavailable David Clarke DO Attending Clinician [phone] Nikhil Trevizo Attending Clinician [phone] NIKHIL BLANTON Attending Clinician Unavailable Pcp, Patient Does Not Have A Attending Clinician Isabela BARRIGA, Mirna Toepte Attending Clinician Unavailab Darnell Denny Attending Clinician + [phone] Jessy Siddiqui DO Attending Clinician +[phone] JENNIFER, CYNISE Admitting Clinician Unavailable LUKE CLARKE Admitting Clinician Unavailable Trevor TAYLOR Admitting Clinician Unavailable ABRAHAM ORANTES Admitting Clinician Unavailable JOHNATHAN AVILA Admitting Clinician Unavail able UNDEFINED Admitting Clinician Unavailable STEPHIE HEWITT Admitting Clinician Unavailab HARESH Sharma Admitting Clinician Unav ailable [place], Dieudonne Admitting Clinician Unavailab MANFRED Elizabeth Admitting Clinician Unavaila NATALI Roe Admitting Clinician Unavailab ADELAIDE Rader Admitting Clinician Unavailable HEMALATHA MORA Admitting Clinician Unavailable SOHAM CLARKE Admitting Clinician UnavailMARK Cornejo Admitting Clinician Unavailable Mark Hernandez MD Admitting Clinician [phone] Trevor TAYLOR Admitting Clinician Unavailable EMELIA GALLEGO Admitting Clinician Unavailable Emelia Gallego DO Admitting Clinician [phone] DARNELL HSU Admitting Clinician Unavailable Payers Payer Name Policy Type Policy Number Effective Date Expirati on Date Source AESTEPHAN W/ LUZ MARIA SOMMER [id number] 2023 00:00:00 SILVER 5 [employer] 94 9 [id number] 2024 00:00:00 [facility] 2 [id number] 2023 00:00:00 [employer] GENERIC [id number] 2021 00:00:00 [place] [address] [id number] [facility] Problems Condition Name Condition Details Condition Category Status Onset Date Resolution Date Last Treatment Date Treating Clinician Comments Source Hospital discharge follow-up Hospital discharge follow-up Disease Active 10-19 00:00: 00 [facility] Maria rea Left inguinal hernia Left inguinal hernia Disease Active 10-19 00:00: 00 [facility]z Maria rea Bilateral renal cysts Bilateral renal cysts Disease Active 2023-09 00:00: 00 [facility]z Maria rea Liver hemangioma Liver hemangioma Disease Active 2023-09 00:00: 00 Luz Maria Seybold - Externa l Well adult exam Well [...] pain Disease Active 10-11 00:00: 00 [facility] SBO (small bowel obstructio n) SBO (small bowel obstructio n) Disease Active 10-30 00:00: 00 [facility] Obesity (BMI 30-39.9) Obesity (BMI 30-39.9) Disease Active 10-30 00:00: 00 [facility] No known active problems No known active problems Disease [facility] [id number] Bladder mass Problem [facility] [id number] Microscopi c hematuria Problem [facility] [id number] Suprapubic pain Problem [facility] [id number] Lower urinary tract symptoms Problem [facility] Allergies, Adverse Reactions, Alerts Allergy Name Allergy Type Status Severity Reaction(s) Onset Date Inactive Date Treating Clinician Comments Source bee venom protein (honey bee) DA Active SV THROAT SWELL 2022-09 00:00: 00 [facility] Bee Venom Propensi ty to adverse reaction s Active Swelling 10-30 00:00: 00 Luz Maria Ng - Externa l BEE VENOM PROTEIN (HONEY BEE) DRUG INGREDI Active Swelling 10-30 00:00: 00 [facility] No Known Allergie s DA Active U 04-19 00:00: 00 [facility] NO KNOWN ALLERGIE S Drug Class Active [facility] Social History Social Habit Start Date Stop Date Quantity Comments Source Gender identity Kelsi Ng - External Sexual orientation Trevor Ng - External History of Occupation Luz Maria Ng - External History of tobacco use Cigarette Smoker Luz Maria trivedi - External Alcoholic beverage intake 2025-01-02 00:00:00 2025-01-02 00:00:00 Ex-drinker (finding) Luz Maria Ng - [...] 2023-10-06 00:00:00 sober since 2016 Luz Maria Hernandez - External History of Social function 2023-06-01 00:00:00 2023-06-01 00:00:00 Luz Maria Hernandez - External Exposure to SARS-CoV-2 (event) 2022-11-28 00:00:00 2022-12-08 23:50:00 Not sure [facility] Sex 2022-09-11 16:00:01 2022-09-11 16:00:01 Male (finding) Luz Maria Hernandez - External Sex assigned at 1970 00:00:00 1970 00:00:00 Luz Maria Ng - External Smoking Status Start Date Stop Date Source Ex-smoker 2024-03-30 00:00:00 2024-03-30 00:00:00 Luz Maria Ng - External Occasional tobacco smoker 2023-05-20 00:00:00 Luz Maria Ng - External Never smoked tobacco [facility] Unknown if ever smoked [facility] Medications Ordered Medication Name Filled Medication Name Start Date Stop Date Current Medication? Ordering Clinician Indication Dosage Frequency Signature (SIG) Comments Components Source NaCl 0.9% (NS) bolus infusion 1,000 mL 04-07 03:45: 00 04-07 04:07 :00 No 1000mL at 999 mL/hr, 1,000 mL, IV Infusion, ONCE, 1 dose, On Carrie 04/06/25 at 2245, [facility] NaCl 0.9% (NS) bolus infusion 1,000 mL 04-07 03:15: 00 04-07 03:12 :00 No 1000mL at 999 mL/hr, 1,000 mL, IV Infusion, ONCE, 1 dose, On Carrie 04/06/25 at 2215, [facility] NaCl 0.9% (NS) bolus infusion 1,000 mL 04-07 01:45: 00 04-07 03:12 :00 No 1000mL at 999 mL/hr, 1,000 mL, IV Infusion, ONCE, 1 dose, On Carrie 04/06/25 at 2045, STAT [facility] ketorolac (TORADOL) injection 30 mg 04-07 00:45: 00 04-07 00:47 :00 No 30mg 30 mg, Slow IV Push, ONCE, 1 dose, On Thu04/06/25 at 1945[facility] Lis[facility] 10 MG oral Tablet 2-17 00:00: 00 Yes [id number] 10mg QD Take 1 tablet (10 mg total) by mouth daily. Luz Maria rea Pancrelipas e, Lip-Prot-Am yl, (Creon) [address]-[address] units [address] Particles 205 00:00: 00 Yes [id number] 1{capsu le} Take 1 capsule by mouth 3 times daily (with meals). Luz Maria rea Tizanidine HCl 2 MG oral Tablet 10-19 00:00: 00 Yes [id number] 2mg QD Take 1 tablet (2 mg total) by mouth daily as needed for muscle spasms. Luz Maria rea ketorolac (TORADOL) injection 15 mg 06-08 01:00: 00 06-08 00:42 :00 No 15mg 15 mg, Slow IV Push, ONCE, 1 dose, On Thu06/07/24 at 2000, Routine [facility] HYDROcodone -acetaminop hen (NORCO 5) tablet 1 tablet 06-08 00:15: 00 06-08 00:41 :00 No 1{tbl} 1 tablet, Oral, ONCE, 1 dose, On Thu06/07/24 at 1915, [facility] aspirin chewable tablet 324 mg 06-07 23:30: 00 06-07 22:42 :00 No 324mg 324 mg, Oral, ONCE, 1 dose, On Thu06/07/24 at 1830, Routine [facility] NaCl 0.9% (NS) bolus infusion 1,000 mL 06-07 22:45: 00 06-08 00:45 :00 No 1000mL at 999 mL/hr, 1,000 mL, IV Infusion, ONCE, 1 dose, On Thu06/07/24 at 1745, [facility]IL[facility] nitroglycer in (NITROSTAT) sublingual tablet 0.4 mg 06-07 21:58: 38 Yes .4mg 0.4 mg, Sublingual , Q5MIN PRN, 3 doses, Starting on Thu06/07/24 at 1658, Until Discontinu ed, VASILIY, Chest pain [facility] diclofenac 50 mg tablet 06-07 00:00: 00 06-18 04:59 :00 No [id number] 50mg Take 1 tablet by mouth in the morning and 1 tablet at noon and 1 tablet in the evening. Do all this for [address] [facility] acetaminoph en-codeine 300-30 mg tablet 06-07 00:00: 00 06-13 04:59 :00 No [id number] 1{tbl} Take 1 tablet by mouth every 6 (six) hours as needed for Pain (scale 7-10) for up to 5 days. Indication s: acute pain [facility] Lisinopril 10 MG oral Tablet 05-09 00:00: 00 Yes [id number] 10mg QD Take 1 tablet (10 mg total) by mouth daily. [facility] Maria rea Alprazolam (Xanax) 0.25 MG oral Tablet 04-11 00:00: 00 07-20 00:00 :00 No [id number] 107 Take 1 table 45 mins before MRI and 1 tablet just before MRI. [facility]z Maria rea diphenhydrA MINE:lidoca ine 2% viscous:maa lox 1:1:1 (FIRST-MOUT [facility] BLM) oral suspension 15 mL 04-02 16:30: 00 04-02 15:34 :00 No 15mL 15 mL, Oral (Swish & Swallow), ONCE, 1 dose, On 04/02/24 at 1130, Routine [facility] famotidine (PEPCID (PF)) injection 20 mg 04-02 15:30: 00 04-02 15:34 :00 No 20mg 20 mg, Slow IV Push, ONCE, 1 dose, On 04/02/24 at 1030, [facility] NaCl 0.9% (NS) bolus infusion 2,000 mL 04-02 15:15: 00 04-02 17:55 :00 No 2000mL at 999 mL/hr, 2,000 mL, IV Infusion, ONCE, 1 dose, On 04/02/24 at 1015, STAT [facility] ondansetron (ZOFRAN (PF)) injection 4 mg 04-02 15:15: 00 04-02 14:27 :00 No 4mg 4 mg, Slow IV Push, ONCE, 1 dose, On 04/02/24 at 1015, [facility] iopamidol (ISOVUE 370-500 mL) injection 90 mL 04-02 14:45: 00 04-02 15:00 :00 No [id number] 90mL 90 mL, Intravenou s, ONCE, 1 dose, On 04/02/24 at 1000, Routine [facility] morpHINE (4 mg/mL) injection 4 mg 04-02 14:15: 00 04-02 14:27 :00 No 4mg 4 mg, Slow IV Push, ONCE, 1 dose, On 04/02/24 at 0915, STAT [facility] sucralfate 1 gram tablet 04-02 00:00: 00 Yes [id number] 1g Take 1 tablet by mouth before meals and at bedtime. [facility] Sod Picosulfate -Mag Ox-Cit Acd (Clenpiq) 10-3.5-12 MG-GM -GM/175ML oral Solution 03-30 00:00: 00 Yes [id number] Instructio ns provided to patient. Follow instructio ns provided by provider.. [facility]z Maria rea Omeprazole 40 MG oral Delayed Release Capsule 03-30 00:00: 00 Yes [id number] 40mg QD Take 1 capsule (40 mg total) by mouth daily. [facility]z Maria rea NaCl 0.9% (NS) bolus infusion 1,000 mL 02-20 03:45: 00 02-20 04:50 :00 No 1000mL at 999 mL/hr, 1,000 mL, IV Infusion, ONCE, 1 dose, On 02/20/24 at 2245, [facility] FENTanyl PF (SUBLIMAZE (PF)) injection 50 mcg 02-20 03:00: 00 02-20 03:07 :00 No 50ug 50 mcg, Slow IV Push, ONCE, 1 dose, On 02/20/24 at 2200, Routine [facility] metoclopram jerilyn HCl (REGLAN) injection 10 mg 02-20 03:00: 00 02-20 03:07 :00 No 10mg 10 mg, Slow IV Push, ONCE, 1 dose, On 02/20/24 at 2200, [facility] bisacodyL (DULCOLAX) tablet 5 mg 02-20 03:00: 00 02-20 03:07 :00 No 5mg 5 mg, Oral, ONCE NOW, 1 dose, On 02/20/24 at 2200, Routine [facility] bisacodyL (DULCOLAX, BISACODYL,) 5 mg EC tablet 02-19 00:00: 00 Yes [id number] 5mg Take 1 tablet by mouth once daily as needed for Constipati on. [facility] dicyclomine 20 mg tablet 02-19 00:00: 00 Yes [id number] 20mg Take 1 tablet by mouth 4 (four) times daily as needed for Abdominal pain. [facility] Ketorolac Tromethamin e 10 MG oral Tablet 12-16 15:16: 47 12-16 00:00 :00 No 10mg Q.25D Take 1 tablet (10 mg total) by mouth every 6 hours as needed for pain FOR PAIN. [facility] Cyclobenzap rine HCl 10 MG oral Tablet 12-16 00:00: 00 10-19 00:00 :00 No [id number] 10mg QD Take 1 tablet (10 mg total) by mouth nightly as needed for muscle spasms. [facility] HYDROcodone -acetaminop hen (NORCO) 10-325 mg tablet 1 tablet 12-09 04:45: 00 12-09 03:57 :00 No 1{tbl} 1 tablet, Oral, ONCE NOW, 1 dose, On Thu12/09/23 at 2345, Routine [facility] iopamidol (ISOVUE 370-500 mL) injection 100 mL 12-09 03:30: 00 12-09 03:30 :00 No [id number] 100mL 100 mL, Intravenou s, ONCE, 1 dose, On Thu12/09/23 at 2230, Routine [facility] ketorolac (TORADOL) injection 30 mg 12-09 03:00: 00 12-09 02:04 :00 No 30mg 30 mg, Slow IV Push, ONCE, 1 dose, On Thu12/09/23 at 2200, Routine [facility] Methocarbam ol 750 MG oral Tablet 12-09 00:00: 00 12-16 00:00 :00 No 750mg Q.25D Take 1 tablet (750 mg total) by mouth every 6 hours as needed FOR PAIN. [facility] rea ketorolac 10 mg tablet 12-08 00:00: 00 Yes [id number] 10mg Take 1 tablet by mouth every 6 (six) hours as needed for Pain (scale 7-10). [facility] methocarbam oL 750 mg tablet 12-08 00:00: 00 Yes [id number] 750mg Take 1 tablet by mouth every 6 (six) hours as needed for Pain (scale 7-10) (MUSCLE SPASM). [facility] Ketorolac Tromethamin e (TORADOL IM) 12-05 00:00: 00 12-16 00:00 :00 No [facility] Maria rea Lisinopril 10 MG oral Tablet 10-06 14:45: 28 10-06 00:00 :00 No 10mg Take 1 tablet (10 mg total) by mouth daily. Luz Maria rea Gabapentin 300 MG oral Capsule 10-06 00:00: 00 Yes [id number] 300mg Q.5D Take 1 capsule (300 mg total) by mouth 2 times daily as needed. [facility] re[facility] Lisinopril 10 MG oral Tablet 10-06 00:00: 00 Yes [id number] 10mg QD Take 1 tablet (10 mg total) by mouth daily. [facility] Maria rea Amlodipine Besylate 10 MG oral Tablet 10-06 00:00: 00 Yes [id number] 10mg QD Take 1 tablet (10 mg total) by mouth daily. [facility]z Maria rea Famotidine (PEPCID) 20 MG oral tablet 10-06 00:00: 00 Yes [id number] 20mg Q.5D Take 1 tablet (20 mg total) by mouth 2 times daily. [facility]z Maria rea Pancrelipas e, Lip-Prot-Am yl, (Creon) [address]-[address] units [address] Particles 10-06 00:00: 00 10-19 00:00 :00 No [id number] 1{capsu le} Take 1 capsule by mouth 3 times daily (with meals). [facility] Maria rea Pantoprazol e Sodium 20 MG oral Tablet Delayed Response 10-06 00:00: 00 03-30 00:00 :00 No [id number] 20mg Take 1 tablet (20 mg total) by mouth every morning. [facility] HYDROcodone -acetaminop hen (NORCO) 10-325 mg tablet 1 tablet 2022-09 06:45: 00 08-04 05:38 :00 No 1{tbl} 1 tablet, Oral, ONCE NOW, 1 dose, On Thu08/04/23 at 0045, [facility] (ROBAXIN) tablet 1,000 mg 2022-09 05:45: 00 08-04 05:38 :00 No 1000mg 1,000 mg, Oral, ONCE, 1 dose, On Thu08/03/23 at 2345, [facility]IL[facility] FENTanyl PF (SUBLIMAZE (PF)) injection 75 mcg 2022-09 05:00: 00 08-04 04:14 :00 No 75ug 75 mcg, Slow IV Push, ONCE, 1 dose, On Thu08/03/23 at 2300, Routine [facility] NaCl 0.9% (NS) IV infusion 1,000 mL 2022-09 04:45: 00 08-04 05:39 :00 No 1000mL at 999 mL/hr, Intravenou s, ONCE, 1 dose, On Thu08/03/23 at 2245, Routine [facility] methocarbam oL 500 mg tablet 2022-09 00:00: 00 Yes [id number] 500mg Take 1 tablet by mouth every 6 (six) hours as needed (MUSCLE SPASM). [facility] HYDROcodone -acetaminop hen (NORCO) 10-325 mg tablet 2022-09 00:00: 00 08-11 05:59 :00 No [id number] 1{tbl} Take 1 tablet by mouth every 6 (six) hours as needed for Pain (scale 7-10) for up to 7 days. Indication s: acute pain [facility] diphenhydrA MINE (BENADRYL) injection 25 mg 2022-09 19:30: 00 07-25 18:34 :00 No 25mg 25 mg, Slow IV Push, ONCE, 1 dose, On 07/25/23 at 1330, STAT [facility] metoclopram jerilyn HCl (REGLAN) injection 10 mg 2022-09 19:30: 00 07-25 18:34 :00 No 10mg 10 mg, Slow IV Push, ONCE, 1 dose, On 07/25/23 at 1330, [facility] morpHINE (4 mg/mL) injection 4 mg 2022-09 17:30: 00 07-25 16:43 :00 No 4mg 4 mg, Slow IV Push, ONCE, 1 dose, On 07/25/23 at 1130, STAT [facility] ondansetron (ZOFRAN (PF)) injection 4 mg 2022-09 17:15: 00 07-25 16:43 :00 No 4mg 4 mg, Slow IV Push, ONCE, 1 dose, On 07/25/23 at 1115, [facility] NaCl 0.9% (NS) bolus infusion 1,000 mL 2022-09 17:15: 00 07-25 18:54 :00 No 1000mL at 999 mL/hr, 1,000 mL, IV Infusion, ONCE, 1 dose, On 07/25/23 at 1115, STAT [facility] metoclopram jerilyn HCl 10 mg tablet 2022-09 00:00: 00 Yes [id number] 10mg Take 1 tablet by mouth every 6 (six) hours. [facility] sodium chloride (NS) injection 5 mL 2022-09 19:45: 30 Yes 5mL 5 mL, Intravenou s, PRN, Starting on Thu07/24/23 at 1345, Until Discontinu ed, Routine, IV line flushing [facility] dicyclomine 20 mg tablet 2022-09 00:00: 00 02-19 00:00 :00 No [id number] 20mg Take 1 tablet by mouth 4 (four) times daily as needed for Abdominal pain. [facility] ketorolac (TORADOL) injection 15 mg 2022-09 0 03:15: 00 07-12 02:32 :00 No 15mg 15 mg, Slow IV Push, ONCE, 1 dose, On 07/11/23 at 2215, Routine [facility] methocarbam oL (ROBAXIN) tablet 1,000 mg 2022-09 0 02:30: 00 07-12 02:32 :00 No 1000mg 1,000 mg, Oral, ONCE, 1 dose, On 07/11/23 at 2130, [facility]IL[facility] famotidine (PEPCID (PF)) injection 20 mg 2022-09 02:30: 00 07-12 02:32 :00 No 20mg 20 mg, Slow IV Push, ONCE, 1 dose, On 07/11/23 at 2130, [facility] aspirin chewable tablet 324 mg 2022-09 02:15: 00 07-12 02:31 :00 No 324mg 324 mg, Oral, ONCE, 1 dose, On 07/11/23 at 2115, STAT [facility] HYDROcodone -acetaminop hen 5-325 mg tablet 2022-09 00:00: 00 07-15 04:59 :00 No [id number] 1{tbl} Take 1 tablet by mouth every 4 (four) hours as needed for Pain (scale 7-10) for up to 3 days. Indication s: acute pain [facility] omeprazole 40 mg capsule 2022-09 00:00: 00 Yes [id number] 40mg Take 1 capsule by mouth in the morning and 1 capsule in the evening. [facility] peg-electro lyte soln 236-22.74-6 .74 -5.86 gram solution 2022-09 00:00: 00 Yes [id number] Take as directed before colonoscop y [facility] Lisinopril 10 MG oral [...] Slow IV Push, ONCE, 1 dose, On 07/03/23 at 0845, [facility]IL[facility] famotidine (PEPCID (PF)) injection 20 mg 2022-09 13:00: 00 07-03 12:49 :00 No 20mg 20 mg, Slow IV Push, ONCE, 1 dose, On Thu07/03/23 at 0800, [facility] iohexol (OMNIPAQUE 350 BULK-100 mL) injection 80 mL 2022-09 10:40: 00 07-03 10:40 :00 No [id number] 80mL 80 mL, Intravenou s, ONCE, 1 dose, On Thu07/03/23 at 0545, Routine [facility] ondansetron (ZOFRAN (PF)) injection 4 mg 2022-09 10:15: 00 07-03 10:20 :00 No 4mg 4 mg, Slow IV Push, ONCE, 1 dose, On Thu07/03/23 at 0515, [facility]IL[facility] morpHINE (4 mg/mL) injection 4 mg 2022-09 10:15: 00 07-03 10:20 :00 No 4mg 4 mg, Slow IV Push, ONCE, 1 dose, On Thu07/03/23 at 0515, STAT [facility] HYDROcodone -acetaminop hen 5-325 mg tablet 2022-09 00:00: 00 Yes [id number] 1{tbl} Take 1 tablet by mouth every 4 (four) hours as needed for Pain (scale 4-6) for up to 10 doses. Indication s: acute pain [facility] Pantoprazol e Sodium 20 MG oral Tablet Delayed Response 2022-09 00:00: 00 10-06 00:00 :00 No 20mg Take 1 tablet (20 mg total) by mouth every morning. [facility] famotidine (PEPCID) 20 mg tablet 2022-09 00:00: 00 07-10 00:00 :00 No [id number] 20mg Take 1 tablet by mouth in the morning and 1 tablet in the evening. [facility] Lisinopril 10 MG oral Tablet 9-06 15:08: 12 Yes 10mg Take 1 tablet (10 mg total) by mouth daily. [facility] Tamsulosin HCl 0.4 MG oral Capsule 9-06 00:00: 00 Yes .4mg Take 1 capsule (0.4 mg total) by mouth every night at bedtime. [facility] iopamidol (ISOVUE 370-500 mL) injection 80 mL 05-08 03:15: 00 05-08 02:12 :00 No [id number] 80mL 80 mL, Intravenou s, ONCE, 1 dose, On Carrie 05/07/23 at 2215, Routine [facility] morpHINE (4 mg/mL) injection 4 mg 05-08 01:00: 00 05-08 01:38 :00 No 4mg 4 mg, Slow IV Push, ONCE, 1 dose, On Carrie 05/07/23 at 2000, [facility] NaCl 0.9% (NS) bolus infusion 1,000 mL 05-08 01:00: 00 05-08 04:22 :00 No 1000mL at 999 mL/hr, 1,000 mL, IV Infusion, ONCE, 1 dose, On Carrie 05/07/23 at 2000, [facility] NaCl 0.9% (NS) bolus infusion 1,000 mL 05-02 05:15: 00 05-02 05:29 :00 No 1000mL at 999 mL/hr, 1,000 mL, IV Infusion, ONCE, 1 dose, On Thu05/02/23 at 0015, [facility] famotidine (PEPCID (PF)) injection 20 mg 05-02 04:15: 00 05-02 04:21 :00 No 20mg 20 mg, Slow IV Push, ONCE, 1 dose, On Thu05/01/23 at 2315, [facility] maalox:diph enhydrAMINE :lidocaine 2 % viscous 1:1:1 ([facility]) oral suspension 15 mL 05-02 04:15: 00 05-02 04:21 :00 No 15mL 15 mL, Oral, ONCE, 1 dose, On Thu05/01/23 at 2315, V[facility]ILIY [facility] ondansetron (ZOFRAN (PF)) injection 4 mg 05-02 04:15: 00 05-02 03:18 :00 No 4mg 4 mg, Slow IV Push, ONCE, 1 dose, On Thu05/01/23 at 2315, [facility]ILI[facility] NaCl 0.9% (NS) bolus infusion 1,000 mL 05-02 04:15: 00 05-02 04:15 :00 No 1000mL at 999 mL/hr, 1,000 mL, IV Infusion, ONCE, 1 dose, On Thu05/01/23 at 2315, STAT [facility] metoclopram jerilyn HCl 10 mg tablet 05-01 00:00: 00 Yes [id number] 10mg Take 1 tablet by mouth every 6 (six) hours. [facility] pantoprazol e (PROTONIX) 20 mg EC tablet 05-01 00:00: 00 07-03 00:00 :00 No [id number] 20mg Take 1 tablet by mouth in the morning. [facility] iopamidol (ISOVUE 370-500 mL) injection 70 mL 04-22 16:21: 00 04-22 16:21 :00 No [id number] 70mL 70 mL, Intravenou s, ONCE, 1 dose, On Thu04/22/23 at 1145, Routine [facility] haloperidol lactate (HALDOL) injection 2.5 mg 04-22 16:00: 00 04-22 16:01 :00 No 2.5mg 2.5 mg, Intravenou s, ONCE, 1 dose, On Thu04/22/23 at 1100, STAT [facility] NaCl 0.9% (NS) bolus infusion 500 mL 04-22 14:45: 00 04-22 15:30 :00 No 500mL at 999 mL/hr, 500 mL, IV Infusion, ONCE, 1 dose, On Thu04/22/23 at 0945, STAT [facility] maalox:diph enhydrAMINE :lidocaine 2 % viscous 1:1:1 (FIRST-MOUT HWASH BLM) oral suspension 15 mL 04-22 13:00: 00 04-22 12:55 :00 No 15mL 15 mL, Oral, ONCE, 1 dose, On Thu04/22/23 at 0800, Routine [facility] NaCl 0.9% (NS) IV infusion 1,000 mL 04-22 12:45: 00 Yes 1000mL at 999 mL/hr, Intravenou s, CONTINUOUS , Starting on Thu04/22/23 at 0745, Until Discontinu ed, Routine [facility] NaCl 0.9% (NS) bolus infusion 1,000 mL 04-22 10:30: 00 04-22 11:30 :00 No 1000mL at 999 mL/hr, 1,000 mL, IV Infusion, ONCE, 1 dose, On Thu04/22/23 at 0530, STAT [facility] ketorolac (TORADOL) injection 30 mg 04-22 10:30: 00 04-22 09:21 :00 No 30mg 30 mg, Slow IV Push, ONCE, 1 dose, On Thu04/22/23 at 0530, Routine [facility] diphenhydrA MINE (BENADRYL) injection 25 mg 04-22 09:30: 00 04-22 09:21 :00 No 25mg 25 mg, Slow IV Push, ONCE, 1 dose, On Thu04/22/23 at 0430, STAT [facility] metoclopram jerilyn HCl (REGLAN) injection 10 mg 04-22 09:30: 00 04-22 09:21 :00 No 10mg 10 mg, Slow IV Push, ONCE, 1 dose, On Thu04/22/23 at 0430, [facility] NaCl 0.9% (NS) bolus infusion 1,000 mL 04-22 09:15: 00 04-22 10:28 :00 No 1000mL at 999 mL/hr, 1,000 mL, IV Infusion, ONCE, 1 dose, On Thu04/22/23 at 0415, STAT [facility] ondansetron (ZOFRAN) 4 mg tablet 04-22 00:00: 00 Yes [id number] 05 4mg Take 1 tablet by mouth every 8 (eight) hours as needed for Nausea and Vomiting (N/V). [facility] proMETHazin e 25 mg tablet 04-22 00:00: 00 Yes [id number] 25mg Take 1 tablet by mouth every 6 (six) hours as needed for Nausea and Vomiting (N/V) or N/V unresponsi ve to Ondansetro n. [facility] Tramadol HCl (ULTRAM) 50 MG oral Tablet 04-22 00:00: 00 10-06 00:00 :00 No 50mg Q.25D Take 1 tablet (50 mg total) by mouth every 6 hours as needed FOR PAIN. Luz Maria Ng - Externa l lipase-prot ease-amylas e (CREON) 12,000-38,0 00 -60,000 unit capsule 2 capsule 04-16 14:15: 00 Yes 2{capsu le} 2 capsule, Oral, ONCE, 1 dose, On Carrie 04/16/23 at 0915, Routine [facility] famotidine (PEPCID (PF)) injection 20 mg 04-16 13:30: 00 04-16 12:33 :00 No 20mg 20 mg, Slow IV Push, ONCE NOW, 1 dose, On [place] 04/16/23 at 0830, [facility] dicyclomine (BENTYL) injection 20 mg 04-16 13:30: 00 04-16 12:34 :00 No 20mg 20 mg, Intramuscu lar, ONCE NOW, 1 dose, On [place] 04/16/23 at 0830, Routine [facility] enalaprilat (VASOTEC I.V.) injection 1.25 mg 04-16 13:15: 00 04-16 13:17 :00 No 1.25mg 1.25 mg, Slow IV Push, ONCE, 1 dose, On [place] 04/16/23 at 0815, STAT [facility] lactulose (CEPHULAC) solution 45 mL 04-16 13:15: 00 04-16 13:18 :00 No 45mL 45 mL, Oral, ONCE, 1 dose, On [facility] 04/16/23 at 0815, [facility] ketorolac (TORADOL) injection 30 mg 04-16 13:15: 00 04-16 12:32 :00 No 30mg 30 mg, Slow IV Push, ONCE NOW, 1 dose, On [facility] 04/16/23 at 0815, [facility]IL[facility] NaCl 0.9% (NS) bolus infusion 1,000 mL 04-16 13:15: 00 04-16 13:54 :00 No 1000mL at 999 mL/hr, 1,000 mL, IV Piggyback, ONCE, 1 dose, On [facility] 04/16/23 at 0815, STAT [facility] lipase-prot ease-amylas e (CREON) 3,000-9,500 - 15,000 unit capsule 04-16 00:00: 00 Yes [id number] 3000U Take 1 capsule by mouth in the morning and 1 capsule at noon and 1 capsule in the evening. Take with meals. [facility] hyoscyamine sulfate (LEVSIN/SL) 0.125 mg sublingual tablet 04-16 00:00: [id number] 2 tablets under the tongue every 6 (six) hours as needed (Abdominal pain or cramping). [facility] bisacodyL 5 mg EC tablet 04-16 00:00: 00 Yes [id number] 5mg Take 1 tablet by mouth once daily as needed for Constipati on. [facility] Famotidine (PEPCID) 20 MG oral tablet 04-16 00:00: 00 10-06 00:00 :00 No 20mg Take 1 tablet (20 mg total) by mouth 2 times daily. [facility] Lorazepam 1 MG oral Tablet 04-05 00:00: 00 10-06 00:00 :00 No 1mg [id number] 3D Take 1 tablet (1 mg total) by mouth every 8 hours as needed. [facility] iopamidol (ISOVUE 370-500 mL) injection 100 mL 04-01 07:45: 00 04-01 06:58 :00 No [id number] 100mL 100 mL, Intravenou s, ONCE, 1 dose, On Thu04/01/23 at 0245, Routine [facility] famotidine (PEPCID (PF)) injection 20 mg 04-01 05:45: 00 04-01 06:09 :00 No 20mg 20 mg, Slow IV Push, ONCE, 1 dose, On Thu04/01/23 at 0045, [facility] FENTanyl PF (SUBLIMAZE (PF)) injection 50 mcg 04-01 05:38: 00 04-01 06:10 :00 No 50ug 50 mcg, Slow IV Push, ONCE, 1 dose, On Thu04/01/23 at 0045, [facility] NaCl 0.9% (NS) IV infusion 1,000 mL 04-01 05:05: 00 04-01 06:30 :00 No 1000mL at 999 mL/hr, Intravenou s, ONCE, 1 dose, On Thu04/01/23 at 0015, [facility] ondansetron (ZOFRAN (PF)) injection 4 mg 04-01 05:05: 00 04-01 05:08 :00 No 4mg 4 mg, Slow IV Push, ONCE, 1 dose, On Thu04/01/23 at 0015, [facility] sodium chloride (NS) injection 5 mL 04-01 05:04: 36 Yes 5mL 5 mL, Intravenou s, PRN, Starting on Thu04/01/23 at 0004, Until Discontinu ed, Routine, IV line flushing [facility] ondansetron 4 mg disintegrat ing tablet 04-01 00:00: 00 Yes [id number] 4mg Take 1 tablet by mouth every 8 (eight) hours as needed for Nausea and Vomiting (N/V). [facility] traMADoL 50 mg tablet 04-01 00:00: 00 04-09 04:59 :00 No [id number] 50mg Take 1 tablet by mouth every 8 (eight) hours as needed for Pain (scale 4-6) for up to 7 days. Indication s: acute pain [facility] predniSONE (DELTASONE) tablet 40 mg 12-09 07:15: 00 12-09 06:33 :00 No 40mg 40 mg, Oral, ONCE, 1 dose, On Thu12/09/22 at 0215, [facility] traMADoL (ULTRAM) tablet 50 mg 12-09 07:15: 12-09 06:33 :00 No 50mg 50 mg, Oral, ONCE, 1 dose, On Thu12/09/22 at 0215[facility] (ISOVUE 370-500 mL) injection 100 mL 12-09 06:15: 12-09 06:15 :00 No [id number] 100mL 100 mL, Intravenou s, ONCE, 1 dose, On Thu12/09/22 at 0115, Routine [facility] ketorolac (TORADOL) injection 30 mg 12-09 06:15: 12-09 05:30 :00 No 30mg 30 mg, Slow IV Push, ONCE, 1 dose, On Thu12/09/22 at 0115, [facility] mor[facility]INE (4 mg/mL) injection 4 mg 12-09 06:15: 12-09 05:30 :00 No 4mg 4 mg, Slow IV Push, ONCE, 1 dose, On Thu12/09/22 at 0115, [facility] NaCl 0.9% (NS) bolus infusion 1,000 mL 12-09 06:15: 12-09 06:33 :00 No 1000mL at 999 mL/hr, 1,000 mL, IV Infusion, ONCE, 1 dose, On Thu12/09/22 at 0115, [facility]IL[facility] ondansetron (ZOFRAN (PF)) injection 8 mg 12-09 05:30: 00 12-09 05:30 :00 No 8mg 8 mg, Slow IV Push, ONCE, 1 dose, On Thu12/09/22 at 0030, [facility] traMADoL 50 mg tablet 12-09 00:00: 00 Yes [id number] 50mg Take 1 tablet by mouth every 6 (six) hours as needed (pain). Indication s: acute pain [facility] ondansetron 4 mg tablet 12-09 00:00: 00 Yes [id number] 1-2 tablets every 8 hours as needed for nausea [facility] predniSONE 20 mg tablet 12-09 00:00: 00 12-17 04:59 :00 No [id number] 40mg Take 2 tablets by mouth in the morning for [address] [facility] iopamidol (ISOVUE 370-500 mL) injection 100 mL 11-25 06:15: 00 11-25 06:15 :00 No [id number] 100mL 100 mL, Intravenou s, ONCE, 1 dose, On Thu11/25/22 at 0115, Routine [facility] NaCl 0.9% (NS) bolus infusion 1,000 mL 11-25 06:00: 00 11-25 07:00 :00 No 1000mL at 999 mL/hr, 1,000 mL, IV Infusion, ONCE, 1 dose, On Thu11/25/22 at 0100, STAT [facility] FENTanyl PF (SUBLIMAZE (PF)) injection 50 mcg 11-25 05:45: 00 11-25 05:03 :00 No 50ug 50 mcg, Slow IV Push, ONCE, 1 dose, On Thu11/25/22 at 0045, Routine [facility] ondansetron (ZOFRAN (PF)) injection 4 mg 11-25 05:00: 00 11-25 05:04 :00 No 4mg 4 mg, Slow IV Push, ONCE, 1 dose, On Thu11/25/22 at 0000, [facility] Pancrelipas e, Lip-Prot-Am yl, (Creon) [address]39-[address]447 units oral Cap DR Particles 10-13 00:00: 00 10-06 00:00 :00 No Luz Maria Callahana l lipase-prot ease-amylas e (CREON) 12,000-38,0 00 -60,000 unit capsule 2 capsule 10-12 23:00: 00 Yes 2{capsu le} 2 capsule, Oral, TID MEALS, First dose on Thu10/12/22 at 1700, Until Discontinu ed, Routine [facility] lisinopriL 10 mg tablet 10-12 17:56: 15 Yes 10mg Take 10 mg by mouth in the morning. [facility] meloxicam (MOBIC) tablet 7.5 mg 10-12 17:15: 00 Yes 7.5mg 7.5 mg, Oral, DAILY, First dose on Thu10/12/22 at 1115, Until Discontinu ed, Routine [facility] omeprazole (PRILOSEC) capsule 20 mg 10-12 15:00: 00 Yes 20mg 20 mg, Oral, DAILY, First dose on Thu10/12/22 at 0900, Until Discontinu ed, Routine [facility] Pantoprazol e Sodium 40 MG oral Tablet Delayed Response 10-12 00:00: 00 10-06 00:00 :00 No Luz Maria rea lipase-prot ease-amylas e 12,000-38,0 00 -60,000 unit capsule 10-12 00:00: 00 01-11 04:59 :00 No [id number] 2{capsu le} Take 2 capsules by mouth in the morning and 2 capsules at noon and 2 capsules in the evening. Take with meals. Do all this for 90 days. Do not crush or chew. [facility] meloxicam 7.5 mg tablet 10-12 00:00: 00 10-27 05:59 :00 No [id number] 7.5mg Take 1 tablet by mouth once daily as needed for Pain (scale 7-10) for up to [address] [facility] HYDROcodone -acetaminop hen 5-325 mg tablet 10-12 00:00: 00 10-20 05:59 :00 No [id number] 1{tbl} Take 1 tablet by mouth every 6 (six) hours as needed for Pain (scale 4-6) for up to 7 days. Indication s: acute pain [facility] amLODIPine (NORVASC) tablet 10 mg 10-11 20:00: 00 Yes 10mg 10 mg, Oral, DAILY, First dose on 10/11/22 at 1400, Until Discontinu ed, Routine [facility] lactated ringers IV infusion 1,000 mL 10-11 20:00: 00 10-12 14:03 :28 No 1000mL at 125 mL/hr, 1,000 mL, IV Infusion, CONTINUOUS , Starting on 10/11/22 at 1400, Until 10/12/22 at 0803, Routine [facility] HYDROcodone -acetaminop hen (NORCO 5) 5-325 mg tablet 1 tablet 10-11 19:35: 19 10-13 19:34 :19 No 1{tbl} 1 tablet, Oral, Q6HPRN, Starting on 10/11/22 at 1335, Until 10/13/22 at 1334, Routine, Pain (scale 4-6) [facility] acetaminoph en (TYLENOL) tablet 650 mg 10-11 19:35: 16 Yes 650mg 650 mg, Oral, Q6HPRN, Starting on 10/11/22 at 1335, Until Discontinu ed, Routine, Pain (scale 1-3) [facility] NaCl 0.9% (NS) bolus infusion 1,000 mL 10-11 16:45: 00 10-11 16:02 :00 No 1000mL at 999 mL/hr, 1,000 mL, Intravenou s, ONCE, 1 dose, On 10/11/22 at 1045, STAT [facility] ondansetron (ZOFRAN (PF)) injection 4 mg 10-11 16:15: 00 10-11 16:15 :00 No 4mg 4 mg, Slow IV Push, ONCE, 1 dose, On 10/11/22 at 1015, [facility] morpHINE (4 mg/mL) injection 4 mg 10-11 16:15: 00 10-11 16:14 :00 No 4mg 4 mg, Slow IV Push, ONCE, 1 dose, On 10/11/22 at 1015, STAT [facility] iopamidol (ISOVUE 370-500 mL) injection 120 mL 10-11 15:45: 00 10-11 14:43 :00 No [id number] 120mL 120 mL, Intravenou s, ONCE, 1 dose, On 10/11/22 at 0945, Routine [facility] FENTanyl PF (SUBLIMAZE (PF)) injection 50 mcg 10-09 08:30: 00 10-09 07:23 :00 No 50ug 50 mcg, Slow IV Push, ONCE, 1 dose, On [place] 10/09/22 at 0230, Routine [facility] iopamidol (ISOVUE 370-500 mL) injection 100 mL 10-09 07:15: 00 10-09 07:15 :00 No [id number] 100mL 100 mL, Intravenou s, ONCE, 1 dose, On [place] 10/09/22 at 0115, Routine [facility] ketorolac (TORADOL) injection 30 mg 10-09 06:15: 00 10-09 05:25 :00 No 30mg 30 mg, Slow IV Push, ONCE, 1 dose, On [place] 10/09/22 at 0015, Routine [facility] ondansetron (ZOFRAN) 4 mg tablet 10-09 00:00: 00 Yes [id number] 4mg Take 1 tablet by mouth every 8 (eight) hours as needed for Nausea and Vomiting (N/V). [facility] traMADoL (ULTRAM) 50 mg tablet 10-09 00:00: 00 Yes [id number] 50mg Take 1 tablet by mouth every 6 (six) hours as needed for Pain (scale 7-10). Indication s: acute pain [facility] ketorolac (TORADOL) injection 30 mg 2021-09 17:15: 00 08-20 16:35 :00 No 30mg 30 mg, Intramuscu lar, ONCE, 1 dose, On Thu08/20/22 at 1115, [facility] Amlodipine Besylate 10 MG oral Tablet 2021-09 00:00: 00 10-06 00:00 :00 No Luz Maria rea morpHINE (4 mg/mL) injection 4 mg 06-09 13:15: 06-09 12:54 :00 No 4mg 4 mg, Slow IV Push, ONCE, 1 dose, On Thu06/09/22 at 0815, [facility] ketorolac (TORADOL) injection 30 mg 06-09 13:15: 00 06-09 12:55 :00 No 30mg 30 mg, Slow IV Push, ONCE, 1 dose, On Thu06/09/22 at 0815, [facility] iopamidol (ISOVUE 370-500 mL) injection 60 mL 06-09 13:07: 00 06-09 13:08 :00 No [id number] 60mL 60 mL, Intravenou s, ONCE, 1 dose, On Thu06/09/22 at 0815, Routine [facility] ondansetron (ZOFRAN (PF)) injection 4 mg 06-09 12:30: 00 06-09 12:54 :00 No 4mg 4 mg, Slow IV Push, ONCE, 1 dose, On Thu06/09/22 at 0730, [facility] dexamethaso ne sod phos PF injection 10 mg 06-09 12:30: 00 06-09 12:55 :00 No 10mg 10 mg, Slow IV Push, ONCE, 1 dose, On Thu06/09/22 at 0730, [address] [facility] traMADoL 50 mg tablet 06-09 00:00: 00 10-11 00:00 :00 No [id number] 50mg Take 1 tablet by mouth every 6 (six) hours as needed (pain). Indication s: acute pain [facility] lidocaine 5 % (700 mg/patch) patch 06-09 00:00: 00 10-11 00:00 :00 No [id number] Apply one patch to most painful area up to 12 hours a day as needed for pain. PHARMACIST : dispense one box [facility] predniSONE 20 mg tablet 06-09 00:00: 00 06-17 04:59 :00 No [id number] 40mg Take 2 tablets by mouth in the morning for [address] [facility] Dose Unknown 02-03 00:00: 00 No Dose Unknown 02-03 00:00: 00 No lisinopriL (PRINIVIL,Z ESTRIL) tablet 20 mg 11-01 03:00: 00 Yes 20mg 20 mg, Oral, QHS, First dose (after last modificati on) on Thu10/31/21 at 2100, Until Discontinu ed, Routine [facility] lisinopriL 20 mg tablet 11-01 00:00: 00 12-02 04:59 :00 No [id number] 20mg Take 1 tablet by mouth at bedtime for [address] [facility] lactated ringers IV infusion 1,000 mL 10-31 19:00: 00 Yes 1000mL at 75 mL/hr, 1,000 mL, IV Infusion, CONTINUOUS , Starting on [place] 10/31/21 at 1300, Until Discontinu ed, Routine [facility] amLODIPine (NORVASC) tablet 10 mg 10-31 15:00: 00 Yes 10mg 10 mg, Oral, DAILY, First dose on Thu10/31/21 at 0900, Until Discontinu ed, Routine [facility] enoxaparin (LOVENOX) injection 40 mg 10-31 15:00: 00 Yes 40mg 40 mg, Subcutaneo us, DAILY, First dose on Thu10/31/21 at 0900, Until Discontinu ed, Routine [facility] lactated ringers IV infusion 1,000 mL 10-31 07:00: 00 10-31 18:45 :24 No 1000mL at 150 mL/hr, 1,000 mL, IV Infusion, CONTINUOUS , Starting on Thu10/31/21 at 0100, Until Thu10/31/21 at 1245, Routine [facility] lactated ringers IV infusion 1,000 mL 10-31 01:00: 00 10-31 06:52 :16 No 1000mL at 75 mL/hr, 1,000 mL, IV Infusion, CONTINUOUS , Starting on Thu10/30/21 at 1900, Until Thu10/31/21 at 0052, Routine [facility] morpHINE injection 4 mg 10-31 00:43: 35 11-01 00:42 :35 No 4mg 4 mg, Slow IV Push, Q4HPRN, Starting on Thu10/30/21 at 1843, Until Thu10/31/21 at 1842, Routine, Pain (scale 7-10) [facility] HYDROcodone -acetaminop hen (NORCO 5) 5-325 mg tablet 1 tablet 10-31 00:43: 32 11-02 00:42 :32 No 1{tbl} 1 tablet, Oral, Q6HPRN, Starting on Thu10/30/21 at 1843, Until Thu11/01/21 at 1842, Routine, Pain (scale 4-6) [facility] acetaminoph en (TYLENOL) tablet 650 mg 10-31 00:43: 22 Yes 650mg 650 mg, Oral, Q6HPRN, Starting on Thu10/30/21 at 1843, Until Discontinu ed, Routine, Pain (scale 1-3) [facility] ondansetron (ZOFRAN (PF)) injection 4 mg 10-30 21:15: 00 10-30 20:28 :00 No 4mg 4 mg, Slow IV Push, ONCE, 1 dose, On Thu10/30/21 at 1515, [facility] morpHINE injection 4 mg 10-30 21:15: 00 10-30 20:29 :00 No 4mg 4 mg, Slow IV Push, ONCE, 1 dose, On Thu10/30/21 at 1515, STAT [facility] NaCl 0.9% (NS) bolus infusion 1,000 mL 10-30 21:15: 00 10-30 20:29 :00 No 1000mL at 999 mL/hr, 1,000 mL, IV Infusion, ONCE, 1 dose, On Thu10/30/21 at 1515, [facility] iopamidol (ISOVUE 370-500 mL) injection 100 mL 10-30 20:37: 00 10-30 20:35 :00 No [id number] 100mL 100 mL, Intravenou s, ONCE, 1 dose, On Thu10/30/21 at 1445, Routine [facility] lisinopril 10 mg tablet [...] dose, [place] 05/23/21 at 2245, STAT [facility] NaCl 0.9% (NS) bolus infusion 1,000 mL 05-24 03:00: 00 05-24 03:00 :00 No 1000mL at 999 mL/hr, 1,000 mL, IV Piggyback, ONCE, 1 dose, [place] 05/23/21 at 2200, STAT [facility] NaCl 0.9% (NS) bolus infusion 500 mL 05-23 03:15: 00 05-23 15:14 :00 No 500mL at 999 mL/hr, 500 mL, IV Piggyback, ONCE, 1 dose, 05/22/21 at 2215, STAT [facility] dexamethaso ne (DECADRON PHOSPHATE) injection 10 mg 04-02 03:30: 00 04-02 02:47 :00 No 10mg 10 mg, Intramuscu lar, ONCE, 1 dose, 04/01/21 at 2230, STAT [facility] ketorolac (TORADOL) injection 60 mg 03-18 04:00: 00 03-18 02:56 :00 No 60mg 60 mg, Intramuscu lar, ONCE, 1 dose, [place] 03/17/21 at 2300, [facility], [facility]y member approving Restricted medication : EMERGENCY ROOM, [facility] ibuprofen 800 mg tablet 03-17 00:00: 00 05-23 00:00 :00 No [id number] 800mg Take 1 tablet by mouth every 8 (eight) hours as needed for Pain (scale 4-6). [facility] acetaminoph en-codeine 300-30 mg tablet 03-17 00:00: 00 03-25 04:59 :00 No [id number] 1{tbl} Take 1 tablet by mouth every 6 (six) hours as needed for Pain (scale 7-10) for up to 7 days. Indication s: acute pain [facility] benzonatate (TESSALON PERLES) capsule 200 mg 11-15 05:00: 00 11-15 04:51 :00 No 200mg 200 mg, Oral, ONCE, 1 dose, Thu11/14/20 at 2300, Routine [facility] Dose Unknown 11-14 00:00: 00 No Dose Unknown 11-14 00:00: 00 No benzonatate 100 mg capsule - 00:00: 00 05-23 00:00 :00 No [id number] 100mg Take 1 capsule by mouth 3 (three) times daily as needed for Cough. [facility] diphenhydrA MINE (BENADRYL) injection 25 mg 09-30 16:00: 00 09-30 15:17 :00 No 25mg 25 mg, Slow IV Push, ONCE, 1 dose, 09/30/20 at 1000, STAT [facility] metoclopram jerilyn HCl (REGLAN) injection 10 mg 09-30 16:00: 00 09-30 15:17 :00 No 10mg 10 mg, Slow IV Push, ONCE, 1 dose, 09/30/20 at 1000, [facility] NaCl 0.9% (NS) bolus infusion 1,000 mL 09-30 15:00: 00 09-30 16:45 :00 No 1000mL at 999 mL/hr, 1,000 mL, IV Infusion, ONCE, 1 dose, 09/30/20 at 0900, [facility]IL[facility] amLODIPine (NORVASC) 10 mg tablet 09-30 00:00: 00 Yes [id number] 10mg Take 1 tablet by mouth daily. [facility] lisinopriL 10 mg tablet 09-30 00:00: 00 11-01 00:00 :00 No [id number] 10mg Take 1 tablet by mouth at bedtime. [facility] Dose Unknown 2019-09 0 00:00: 00 No Dose Unknown 2019-09 0 00:00: 00 No maalox:diph enhydrAMINE :lidocaine 2 % viscous 1:1:1 (FIRST-MOUT HWASH BLM) oral suspension 15 mL 2019-09 0 03:30: 00 07-02 03:30 :00 No 15mL 15 mL, Oral, ONCE, 1 dose, 07/01/20 at 2230, [facility]IL[facility] sodium chloride (NS) injection 5 mL 2019-09 03:00: 48 Yes 5mL 5 mL, Intravenou s, PRN, Starting 07/01/20 at 2200, Until Discontinu ed, Routine, IV line flushing [facility] sucralfate 1 gram tablet 2019-09 00:00: 00 07-16 05:59 :00 No [id number] 1g Take 1 tablet by mouth before meals and at bedtime for [address] [facility] lisinopril 10 mg tablet 04-12 00:00: 00 No 1mg amlodipine 10 mg tablet 04-12 00:00: 00 No 1mg No known medications No Un [facility] Immunizations Ordered Immunization Name Filled Immunization Name Date Status Comments Source SARS-COV-2 COVID-19 PFIZER VACCINE 2021-05-07 00:00:00 Completed [facility] SARS-COV-2 COVID-19 PFIZER VACCINE 2021-05-07 00:00:00 Completed [facility] SARS-COV-2 COVID-19 PFIZER VACCINE 2021-05-07 00:00:00 Completed [facility] SARS-COV-2 COVID-19 PFIZER VACCINE 2021-05-07 00:00:00 Completed [facility] SARS-COV-2 COVID-19 PFIZER VACCINE 2021-05-07 00:00:00 Completed [facility] SARS-COV-2 COVID-19 PFIZER VACCINE 2021-05-07 00:00:00 Completed [facility] SARS-COV-2 COVID-19 PFIZER VACCINE 2021-05-07 00:00:00 Completed [facility] SARS-COV-2 COVID-19 PFIZER VACCINE 2021-05-07 00:00:00 Completed [facility] SARS-COV-2 COVID-19 PFIZER VACCINE 2021-05-07 00:00:00 Completed [facility] SARS-COV-2 COVID-19 PFIZER VACCINE 2021-05-07 00:00:00 Completed [facility] SARS-COV-2 COVID-19 PFIZER VACCINE 2021-05-07 00:00:00 Completed [facility] SARS-COV-2 COVID-19 PFIZER VACCINE 2021-05-07 00:00:00 Completed [facility] SARS-COV-2 COVID-19 PFIZER VACCINE 2021-05-07 00:00:00 Completed [facility] SARS-COV-2 COVID-19 PFIZER VACCINE 2021-05-07 00:00:00 Completed [facility] SARS-COV-2 COVID-19 PFIZER VACCINE 2021-05-07 00:00:00 Completed [facility] SARS-COV-2 COVID-19 PFIZER VACCINE 2021-05-07 00:00:00 Completed [facility] SARS-COV-2 COVID-19 PFIZER VACCINE 2021-05-07 00:00:00 Completed [facility] SARS-COV-2 COVID-19 PFIZER VACCINE 2021-05-07 00:00:00 Completed [facility] SARS-COV-2 COVID-19 PFIZER VACCINE 2021-05-07 00:00:00 Completed [facility] SARS-COV-2 COVID-19 PFIZER VACCINE 2021-05-07 00:00:00 Completed [facility] SARS-COV-2 COVID-19 PFIZER VACCINE 2021-05-07 00:00:00 Completed [facility] SARS-COV-2 COVID-19 PFIZER VACCINE 2021-05-07 00:00:00 Completed [facility] SARS-COV-2 COVID-19 PFIZER VACCINE 2021-05-07 00:00:00 Completed [facility] SARS-COV-2 COVID-19 PFIZER VACCINE Unknown Completed [facility] SARS-COV-2 COVID-19 PFIZER VACCINE Unknown Completed [facility] SARS-COV-2 COVID-19 PFIZER VACCINE Unknown Completed [facility] SARS-COV-2 COVID-19 PFIZER VACCINE Unknown Completed [facility] SARS-COV-2 COVID-19 PFIZER VACCINE Unknown Completed [facility] SARS-COV-2 COVID-19 PFIZER VACCINE Unknown Completed [facility] SARS-COV-2 COVID-19 PFIZER VACCINE Unknown Completed [facility] SARS-COV-2 COVID-19 PFIZER VACCINE Unknown Completed [facility] SARS-COV-2 COVID-19 PFIZER VACCINE Unknown Completed [facility] SARS-COV-2 COVID-19 PFIZER VACCINE Unknown Completed [facility] SARS-COV-2 COVID-19 PFIZER VACCINE Unknown Completed [facility] SARS-COV-2 COVID-19 PFIZER VACCINE Unknown Completed [facility] SARS-COV-2 COVID-19 PFIZER VACCINE Unknown Completed [facility] SARS-COV-2 COVID-19 PFIZER VACCINE Unknown Completed [facility] SARS-COV-2 COVID-19 PFIZER VACCINE Unknown Completed [facility] SARS-COV-2 COVID-19 PFIZER VACCINE Unknown Completed [facility] SARS-COV-2 COVID-19 PFIZER VACCINE Unknown Completed [facility] SARS-COV-2 COVID-19 PFIZER VACCINE Unknown Completed [facility] SARS-COV-2 COVID-19 PFIZER VACCINE Unknown Completed [facility] SARS-COV-2 COVID-19 PFIZER VACCINE Unknown Completed [facility] SARS-COV-2 COVID-19 PFIZER VACCINE Unknown Completed [facility] Vital Signs Vital Name Observation Time Observation Value Comments S ource Systolic blood pressure 2025-04-07 04:00:00 151 mm[Hg] [facility] Diastolic blood pressure 2025-04-07 04:00:00 80 mm[Hg] [facility] Heart rate 2025-04-07 04:00:00 74 /min [facility] Body temperature 2025-04-07 04:00:00 36.72 Cindi [facility] Respiratory rate 2025-04-07 04:00:00 18 /min [facility] Oxygen saturation in Arterial blood by Pulse oximetry 2025-04-07 04:00:00 97 /min [facility] Body height 2025-04-07 00:09:00 195.6 cm [facility] Body weight 2025-04-07 00:09:00 124.739 kg [facility] BMI 2025-04-07 00:09:00 32.61 kg/m2 [facility] Systolic blood pressure 2025-01-02 13:35:00 156 mm[Hg] Luz Maria Saucedo ld - External Diastolic blood pressure 2025-01-02 13:35:00 94 mm[Hg] Luz Maria Saucedo ld - External Heart rate 2025-01-02 13:32:00 77 /min Manojse y Seybold - External Body temperature 2025-01-02 13:32:00 36.28 Cindi Luz Maria Seybold - External Respiratory rate 2025-01-02 13:32:00 18 /min Luz Maria Seybold - External Body height 2025-01-02 13:32:00 195.6 cm Kelsi ey Seybold - External Body weight 2025-01-02 13:32:00 126.1 kg Kelsi ey Seybold - External BMI 2025-01-02 13:32:00 32.97 kg/m2 Kelsi ey Seybold - External Oxygen saturation in Arterial blood by Pulse oximetry 2025-01-02 13:32:00 96 /min Luz Maria Ingramybo ld - External Systolic blood pressure 2024 15:47:00 122 mm[Hg] Luz Maria Ingramybo ld - External Diastolic blood pressure 2024 15:47:00 84 mm[Hg] Luz Maria Ingramybo ld - External Heart rate 2024 15:47:00 89 /min Manojse y Seybold - External Body temperature 2024 15:47:00 36.11 Cindi Luz Maria Seybold - External Respiratory rate 2024 15:47:00 18 /min Luz Maria Ingramybold - External Body height 2024 15:47:00 195.6 cm Kelsi ey Seybold - External Body weight 2024 15:47:00 123.832 kg Kelsi ey Seybold - External BMI 2024 15:47:00 32.37 kg/m2 Kelsi ey Seybold - External Oxygen saturation in Arterial blood by Pulse oximetry 2024 15:47:00 97 /min Luz Maria Ingramybo ld - External Heart rate 2024-06-08 00:59:00 80 /min [facility] Respiratory rate 2024-06-08 00:59:00 15 /min [facility] Oxygen saturation in Arterial blood by Pulse oximetry 2024-06-08 00:59:00 97 /min [facility] Systolic blood pressure 2024-06-08 00:30:00 149 mm[Hg] [facility] Diastolic blood pressure 2024-06-08 00:30:00 98 mm[Hg] [facility] Body temperature 2024-06-07 21:55:00 36.5 Cindi [facility] Body height 2024-06-07 21:55:00 195.6 cm [facility] Body weight 2024-06-07 21:55:00 121.11 kg [facility] BMI 2024-06-07 21:55:00 31.66 kg/m2 [facility] Systolic blood pressure 2024-04-08 21:13:00 143 mm[Hg] Luz Maria Seybo ld - External Diastolic blood pressure 2024-04-08 21:13:00 87 mm[Hg] Luz Maria Seybo ld - External Heart rate 2024-04-08 21:13:00 79 /min Sallie y Seybold - External Body temperature 2024-04-08 [...] Systolic blood pressure 2024-04-02 17:52:00 140 mm[Hg] [facility] Diastolic blood pressure 2024-04-02 17:52:00 93 mm[Hg] [facility] Heart rate 2024-04-02 17:52:00 80 /min [facility] Body temperature 2024-04-02 17:52:00 37 Cindi [facility] Respiratory rate 2024-04-02 17:52:00 20 /min [facility] Oxygen saturation in Arterial blood by Pulse oximetry 2024-04-02 17:52:00 98 /min [facility] Body height 2024-04-02 13:32:00 195.6 cm [facility] Body weight 2024-04-02 13:32:00 120.3 kg [facility] BMI 2024-04-02 13:32:00 31.45 kg/m2 [facility] Systolic blood pressure 2024-03-30 13:10:00 119 mm[Hg] Luz Maria Seybo ld - External Diastolic blood pressure 2024-03-30 13:10:00 77 mm[Hg] Luz Maria Seybo ld - External Heart rate 2024-03-30 13:10:00 83 /min Sallie y Seybold - External Body temperature 2024-03-30 [...] Systolic blood pressure 2024-02-21 04:48:00 132 mm[Hg] [facility] Diastolic blood pressure 2024-02-21 04:48:00 82 mm[Hg] [facility] Heart rate 2024-02-21 04:48:00 74 /[facility] 2024-02-21 04:48:00 36.72 Cindi [facility] Respiratory rate 2024-02-21 04:48:00 15 /min [facility] Oxygen saturation in Arterial blood by Pulse oximetry 2024-02-21 04:48:00 98 /min [facility] Body height 2024-02-21 02:43:00 195.6 cm [facility] Body weight 2024-02-21 02:43:00 115.667 kg [facility] BMI 2024-02-21 02:43:00 30.24 kg/m2 [facility] Systolic blood pressure 2023-12-17 20:32:00 112 mm[Hg] Luz Marai Ingramybo ld - External Diastolic blood pressure 2023-12-17 20:32:00 80 mm[Hg] Luz Maria Ingramybo ld - External Heart rate 2023-12-17 20:07:00 96 /min Sallie y Seybold - External Body temperature 2023-12-17 20:07:00 36.44 Cindi Luz Maria Ingramybold - External Respiratory rate 2023-12-17 20:07:00 15 /min Luz Maria Ingramybold - External Body height 2023-12-17 20:07:00 195.6 cm Kelsi hampton Seybold - External Body weight 2023-12-17 20:07:00 125.193 kg Kelsi hampton Seybold - External BMI 2023-12-17 20:07:00 32.73 kg/m2 Kelsihayden hampton Seybold - External Oxygen saturation in Arterial blood by Pulse oximetry 2023-12-17 20:07:00 100 /min Luz Maria Riverao ld - External Systolic blood pressure 2023-12-10 03:57:00 157 mm[Hg] [facility] Diastolic blood pressure 2023-12-10 03:57:00 83 mm[Hg] [facility] Heart rate 2023-12-10 03:57:00 70 /min [facility] Respiratory rate 2023-12-10 03:57:00 16 /min [facility] Oxygen saturation in Arterial blood by Pulse oximetry 2023-12-10 03:57:00 99 /min [facility] Body temperature 2023-12-10 01:12:00 36.83 Cindi [facility] Body height 2023-12-10 01:12:00 195.6 cm [facility] Body weight 2023-12-10 01:12:00 122.471 kg [facility] BMI 2023-12-10 01:12:00 32.02 kg/m2 [facility] Systolic blood pressure 2023-10-06 20:55:00 130 mm[Hg] Luz Maria Seybo ld - External Diastolic blood pressure 2023-10-06 20:55:00 80 mm[Hg] Luz Maria Riverao ld - External Heart rate 2023-10-06 20:14:00 98 /min Sallie Ng - External Body temperature 2023-10-06 20:14:00 36.56 Cindi Luz Maria Ng - External Respiratory rate 2023-10-06 20:14:00 18 /min Luz Maria Ng - External Body height 2023-10-06 20:14:00 195.6 cm Kelsi hampton Seybold - External Body weight 2023-10-06 20:14:00 127.007 kg Kelsi hampton Seybold - External BMI 2023-10-06 20:14:00 33.20 kg/m2 Kelsi hampton Seybfarooq - External Oxygen saturation in Arterial blood by Pulse oximetry 2023-10-06 20:14:00 94 /min Luz Maria Saucedo ld - External Systolic blood pressure 2023-08-04 05:38:00 164 mm[Hg] [facility] Diastolic blood pressure 2023-08-04 05:38:00 99 mm[Hg] [facility] Heart rate 2023-08-04 05:38:00 70 /min [facility] Body temperature 2023-08-04 05:38:00 37 Cindi [facility] Respiratory rate 2023-08-04 05:38:00 18 /min [facility] Oxygen saturation in Arterial blood by Pulse oximetry 2023-08-04 05:38:00 98 /min [facility] Body height 2023-08-04 02:22:00 195.6 cm [facility] Body weight 2023-08-04 02:22:00 118.389 kg [facility] BMI 2023-08-04 02:22:00 30.95 kg/m2 [facility] Systolic blood pressure 2023-07-25 18:00:00 146 mm[Hg] [facility] Diastolic blood pressure 2023-07-25 18:00:00 90 mm[Hg] [facility] Heart rate 2023-07-25 18:00:00 75 /min [facility] Respiratory rate 2023-07-25 18:00:00 18 /min [facility] Oxygen saturation in Arterial blood by Pulse oximetry 2023-07-25 18:00:00 95 /min [facility] Body temperature 2023-07-25 15:57:00 37.61 Cindi [facility] Body height 2023-07-25 15:57:00 195.6 cm [facility] Body weight 2023-07-25 15:57:00 118.842 kg [facility] BMI 2023-07-25 15:57:00 31.07 kg/m2 [facility] Systolic blood pressure 2023-07-24 21:05:00 140 mm[Hg] [facility] Diastolic blood pressure 2023-07-24 21:05:00 94 mm[Hg] [facility] Heart rate 2023-07-24 21:05:00 71 /min [facility] Body temperature 2023-07-24 21:05:00 36.67 Cindi [facility] Respiratory rate 2023-07-24 21:05:00 18 /min [facility] Oxygen saturation in Arterial blood by Pulse oximetry 2023-07-24 21:05:00 97 /min [facility] Body weight 2023-07-24 18:35:00 115.667 kg [facility] BMI 2023-07-24 18:35:00 30.24 kg/m2 [facility] Systolic blood pressure 2023-07-12 03:30:00 156 mm[Hg] [facility] Diastolic blood pressure 2023-07-12 03:30:00 101 mm[Hg] [facility] Heart rate 2023-07-12 03:30:00 90 /min [facility] Respiratory rate 2023-07-12 03:30:00 20 /min [facility] Oxygen saturation in Arterial blood by Pulse oximetry 2023-07-12 03:30:00 94 /min [facility] Body temperature 2023-07-12 01:57:00 36.67 Cindi [facility] Body weight 2023-07-12 01:57:00 115.667 kg [facility] BMI 2023-07-12 01:57:00 30.24 kg/m2 [facility] Systolic blood pressure 2023-07-10 13:34:00 140 mm[Hg] [facility] Diastolic blood pressure 2023-07-10 13:34:00 95 mm[Hg] [facility] Heart rate 2023-07-10 13:34:00 76 /min [facility] Body temperature 2023-07-10 13:34:00 35.94 Cindi [facility] Body height 2023-07-10 13:34:00 195.6 cm [facility] Body weight 2023-07-10 13:34:00 118.298 kg [facility] BMI 2023-07-10 13:34:00 30.93 kg/m2 [facility] Oxygen saturation in Arterial blood by Pulse oximetry 2023-07-10 13:34:00 97 /min [facility] Systolic blood pressure 2023-07-08 13:43:00 [...] Systolic blood pressure 2023-07-03 12:45:10 149 mm[Hg] [facility] Diastolic blood pressure 2023-07-03 12:45:10 88 mm[Hg] [facility] Heart rate 2023-07-03 12:45:10 88 [facility]23-[facility]-03 12:45:10 16 /min [facility] Oxygen saturation in Arterial blood by Pulse oximetry 2023-07-03 12:45:10 97 /min [facility] Body temperature 2023-07-03 09:47:00 36.78 Cindi [facility] Body height 2023-07-03 09:47:00 195.6 cm [facility] Body weight 2023-07-03 09:47:00 113.853 kg [facility] BMI 2023-07-03 09:47:00 29.76 kg/m2 [facility] Systolic blood pressure 2023-05-20 20:08:00 132 mm[Hg] Luz Maria Seybo ld - External Diastolic blood pressure 2023-05-20 20:08:00 84 mm[Hg] Luz Maria Ingramybo ld - External Heart rate 2023-05-20 20:08:00 76 /min Kel y Seybold - External Body temperature 2023-05-20 [...] Systolic blood pressure 2023-05-08 03:30:00 133 mm[Hg] [facility] Diastolic blood pressure 2023-05-08 03:30:00 87 mm[Hg] [facility] Heart rate 2023-05-08 03:30:00 70 /min [facility] Respiratory rate 2023-05-08 03:30:00 18 /min [facility] Oxygen saturation in Arterial blood by Pulse oximetry 2023-05-08 03:30:00 97 /min [facility] Body temperature 2023-05-07 22:36:00 36.72 Cindi [facility] Body weight 2023-05-07 22:36:00 113.853 kg [facility] BMI 2023-05-07 22:36:00 30.55 kg/m2 [facility] Systolic blood pressure 2023-05-02 05:00:00 134 mm[Hg] [facility] Diastolic blood pressure 2023-05-02 05:00:00 85 mm[Hg] [facility] Heart rate 2023-05-02 05:00:00 72 /min [facility] Oxygen saturation in Arterial blood by Pulse oximetry 2023-05-02 05:00:00 98 /min [facility] Body temperature 2023-05-02 02:28:00 37.28 Cindi [facility] Respiratory rate 2023-05-02 02:28:00 20 /min [facility] Body height 2023-05-02 02:28:00 193 cm [facility] Body weight 2023-05-02 02:28:00 113.399 kg [facility] BMI 2023-05-02 02:28:00 30.43 kg/m2 [facility] Systolic blood pressure 2023-04-22 18:02:36 130 mm[Hg] [facility] Diastolic blood pressure 2023-04-22 18:02:36 80 mm[Hg] [facility] Heart rate 2023-04-22 18:02:36 68 /min [facility] Body temperature 2023-04-22 18:02:36 36.78 Cindi [facility] Respiratory rate 2023-04-22 18:02:36 17 /min [facility] Oxygen saturation in Arterial blood by Pulse oximetry 2023-04-22 18:02:36 96 /min [facility] Body height 2023-04-22 08:58:00 195.6 cm [facility] Body weight 2023-04-22 08:58:00 113.944 kg [facility] BMI 2023-04-22 08:58:00 29.79 kg/m2 [facility] Systolic blood pressure 2023-04-16 13:30:00 142 mm[Hg] [facility] Diastolic blood pressure 2023-04-16 13:30:00 98 mm[Hg] [facility] Heart rate 2023-04-16 13:30:00 65 /min [facility] Respiratory rate 2023-04-16 13:30:00 17 /min [facility] Oxygen saturation in Arterial blood by Pulse oximetry 2023-04-16 13:30:00 98 /min [facility] Systolic blood pressure 2023-04-16 12:32:00 155 mm[Hg] [facility] Diastolic blood pressure 2023-04-16 12:32:00 108 mm[Hg] [facility] Heart rate 2023-04-16 12:32:00 61 /min [facility] Respiratory rate 2023-04-16 12:32:00 18 /min [facility] Oxygen saturation in Arterial blood by Pulse oximetry 2023-04-16 12:32:00 97 /min [facility] Body temperature 2023-04-16 12:09:00 36.72 Cindi [facility] Body weight 2023-04-16 12:09:00 118.842 kg [facility] BMI 2023-04-16 12:09:00 31.89 kg/m2 [facility] Systolic blood pressure 2023-04-01 08:00:00 130 mm[Hg] [facility] Diastolic blood pressure 2023-04-01 08:00:00 75 mm[Hg] [facility] Heart rate 2023-04-01 08:00:00 75 /min [facility] Respiratory rate 2023-04-01 08:00:00 19 /min [facility] Oxygen saturation in Arterial blood by Pulse oximetry 2023-04-01 08:00:00 96 /min [facility] Body temperature 2023-04-01 05:02:00 36.28 Cindi [facility] Body height 2023-04-01 05:02:00 193 cm Univ [facility] Body weight 2023-04-01 05:02:00 111.585 kg [facility] BMI 2023-04-01 05:02:00 29.94 kg/m2 [facility] Systolic blood pressure 2023-02-13 21:00:00 157 mm[Hg] [facility] Diastolic blood pressure 2023-02-13 21:00:00 89 mm[Hg] [facility] Heart rate 2023-02-13 21:00:00 102 /min [facility] Body temperature 2023-02-13 21:00:00 37.89 Cindi [facility] Respiratory rate 2023-02-13 21:00:00 16 /min [facility] Body weight 2023-02-13 21:00:00 124.286 kg [facility] BMI 2023-02-13 21:00:00 33.35 kg/m2 [facility] Oxygen saturation in Arterial blood by Pulse oximetry 2023-02-13 21:00:00 97 /min [facility] Systolic blood pressure 2022-12-09 06:33:00 152 mm[Hg] [facility] Diastolic blood pressure 2022-12-09 06:33:00 96 mm[Hg] [facility] Heart rate 2022-12-09 06:33:00 60 /min [facility] Respiratory rate 2022-12-09 06:33:00 11 /min [facility] Oxygen saturation in Arterial blood by Pulse oximetry 2022-12-09 06:33:00 96 /min [facility] Body temperature 2022-12-09 04:51:00 37 Cindi [facility] Body height 2022-12-09 04:51:00 193 cm Univ [facility] Body weight 2022-12-09 04:51:00 116.121 kg Univ [facility] BMI 2022-12-09 04:51:00 31.16 kg/m2 [facility] Systolic blood pressure 2022-11-25 04:51:00 148 mm[Hg] [facility] Diastolic blood pressure 2022-11-25 04:51:00 96 mm[Hg] [facility] Heart rate 2022-11-25 04:51:00 71 /min [facility] Body temperature 2022-11-25 04:51:00 37 Cindi [facility] Respiratory rate 2022-11-25 04:51:00 16 /min [facility] Body height 2022-11-25 04:51:00 193 cm [facility] Body weight 2022-11-25 04:51:00 113.399 kg [facility] BMI 2022-11-25 04:51:00 30.43 kg/m2 [facility] Oxygen saturation in Arterial blood by Pulse oximetry 2022-11-25 04:51:00 97 /min [facility] Systolic blood pressure 2022-10-12 21:48:00 152 mm[Hg] [facility] Diastolic blood pressure 2022-10-12 21:48:00 82 mm[Hg] [facility] Heart rate 2022-10-12 21:48:00 70 /min [facility] Body temperature 2022-10-12 21:48:00 36.89 Cindi [facility] Respiratory rate 2022-10-12 21:48:00 18 /min [facility] Oxygen saturation in Arterial blood by Pulse oximetry 2022-10-12 21:48:00 94 /min [facility] Body height 2022-10-11 17:50:00 193 cm [facility] Body weight 2022-10-11 17:50:00 113.399 kg [facility] BMI 2022-10-11 17:50:00 30.43 kg/m2 [facility] Systolic blood pressure 2022-10-09 07:25:23 138 mm[Hg] [facility] Diastolic blood pressure 2022-10-09 07:25:23 86 mm[Hg] [facility] Heart rate 2022-10-09 07:25:23 73 /min [facility] Respiratory rate 2022-10-09 07:25:23 20 /min [facility] Oxygen saturation in Arterial blood by Pulse oximetry 2022-10-09 07:25:23 98 /min [facility] Body temperature 2022-10-09 04:12:00 37.28 Cindi [facility] Body height 2022-10-09 04:12:00 193 cm [facility] Body weight 2022-10-09 04:12:00 113.399 kg [facility] BMI 2022-10-09 04:12:00 30.43 kg/m2 [facility] Systolic blood pressure 2022-08-20 14:40:00 147 mm[Hg] [facility] Diastolic blood pressure 2022-08-20 14:40:00 95 mm[Hg] [facility] Heart rate 2022-08-20 14:40:00 75 /min [facility] Body temperature 2022-08-20 14:40:00 36.89 Cindi [facility] Respiratory rate 2022-08-20 14:40:00 20 /min [facility] Body height 2022-08-20 14:40:00 190.5 cm [facility] Body weight 2022-08-20 14:40:00 115.667 kg [facility] BMI 2022-08-20 14:40:00 31.87 kg/m2 [facility] Oxygen saturation in Arterial blood by Pulse oximetry 2022-08-20 14:40:00 98 /min [facility] height 2022-07-11 09:30:00 77 [in_i] Commo n [facility] weight 2022-07-11 09:30:00 253.6 [lb_av] Co mmon [facility] temperature 2022-07-11 09:30:00 98.3 [degF] Com mon [facility] bmi 2022-07-11 09:30:00 30.07 kg/m2 Comm on [facility] oximetry 2022-07-11 09:30:00 99 % Commo n [facility] respiratory rate 2022-07-11 09:30:00 18 /min [facility] blood pressure systolic 2022-07-11 09:30:00 135 mm[Hg] [facility] blood pressure diastolic 2022-07-11 09:30:00 81 mm[Hg] [facility] Systolic blood pressure 2022-06-09 15:00:00 141 mm[Hg] [facility] Diastolic blood pressure 2022-06-09 15:00:00 94 mm[Hg] [facility] Heart rate 2022-06-09 15:00:00 59 /min [facility] Respiratory rate 2022-06-09 15:00:00 16 /min [facility] Oxygen saturation in Arterial blood by Pulse oximetry 2022-06-09 15:00:00 97 /min [facility] Body temperature 2022-06-09 11:56:00 36.17 Cindi [facility] Body height 2022-06-09 11:56:00 195.6 cm Univ [facility] Body weight 2022-06-09 11:56:00 127.007 kg [facility] BMI 2022-06-09 11:56:00 33.20 kg/m2 [facility] Systolic blood pressure 2021-11-01 17:12:00 152 mm[Hg] [facility] Diastolic blood pressure 2021-11-01 17:12:00 89 mm[Hg] [facility] Heart rate 2021-11-01 17:12:00 72 /min [facility] Body temperature 2021-11-01 17:12:00 36.17 Cindi [facility] Respiratory rate 2021-11-01 17:12:00 18 /min [facility] Oxygen saturation in Arterial blood by Pulse oximetry 2021-11-01 17:12:00 94 /min [facility] Body height 2021-10-30 23:19:00 195.6 cm Univ [facility] Body weight 2021-10-30 23:19:00 116.983 kg [facility] BMI 2021-10-30 23:19:00 30.58 kg/m2 [facility] Systolic blood pressure 2021-05-24 06:00:00 135 mm[Hg] [facility] Diastolic blood pressure 2021-05-24 06:00:00 97 mm[Hg] [facility] Heart rate 2021-05-24 06:00:00 88 /min [facility] Respiratory rate 2021-05-24 06:00:00 21 /min [facility] Oxygen saturation in Arterial blood by Pulse oximetry 2021-05-24 06:00:00 94 /min [facility] Body temperature 2021-05-24 01:47:00 37.28 Cindi [facility] Body height 2021-05-24 01:47:00 195.6 cm [facility] Body weight 2021-05-24 01:47:00 127.461 kg [facility] BMI 2021-05-24 01:47:00 33.32 kg/m2 [facility] Systolic blood pressure 2021-05-22 23:36:00 154 mm[Hg] [facility] Diastolic blood pressure 2021-05-22 23:36:00 112 mm[Hg] [facility] Heart rate 2021-05-22 23:36:00 97 /min Un[facility] Body temperature 2021-05-22 23:36:00 36 Cindi [facility] Respiratory rate 2021-05-22 23:36:00 19 /min [facility] Body height 2021-05-22 23:36:00 195.6 cm [facility] Body weight 2021-05-22 23:36:00 127.007 kg [facility] BMI 2021-05-22 23:36:00 33.20 kg/m2 [facility] Oxygen saturation in Arterial blood by Pulse oximetry 2021-05-22 23:36:00 96 /min [facility] Systolic blood pressure 2021-05-02 00:01:00 157 mm[Hg] [facility] Diastolic blood pressure 2021-05-02 00:01:00 93 mm[Hg] [facility] Heart rate 2021-05-02 00:01:00 84 /min [facility] Body temperature 2021-05-02 00:01:00 36.56 Cindi [facility] Respiratory rate 2021-05-02 00:01:00 18 /min [facility] Body weight 2021-05-02 00:01:00 126.554 kg [facility] BMI 2021-05-02 00:01:00 33.08 kg/m2 [facility] Oxygen saturation in Arterial blood by Pulse oximetry 2021-05-02 00:01:00 97 /min [facility] Systolic blood pressure 2021-04-02 01:01:00 144 mm[Hg] [facility] Diastolic blood pressure 2021-04-02 01:01:00 94 mm[Hg] [facility] Heart rate 2021-04-02 01:01:00 89 /min [facility] Body temperature 2021-04-02 01:01:00 37.06 Cindi [facility] Respiratory rate 2021-04-02 01:01:00 18 /min [facility] Body weight 2021-04-02 01:01:00 129.729 kg [facility] BMI 2021-04-02 01:01:00 33.91 kg/m2 [facility] Oxygen saturation in Arterial blood by Pulse oximetry 2021-04-02 01:01:00 100 /min [facility] Systolic blood pressure 2021-04-02 01:01:00 144 mm[Hg] [facility] Diastolic blood pressure 2021-04-02 01:01:00 94 mm[Hg] [facility] Heart rate 2021-04-02 01:01:00 89 /min [facility] Body temperature 2021-04-02 01:01:00 37.06 Cindi [facility] Respiratory rate 2021-04-02 01:01:00 18 /min [facility] Body weight 2021-04-02 01:01:00 129.729 kg [facility] BMI 2021-04-02 01:01:00 33.91 kg/m2 [facility] Oxygen saturation in Arterial blood by Pulse oximetry 2021-04-02 01:01:00 100 /min [facility] Systolic blood pressure 2021-03-18 03:16:13 140 mm[Hg] [facility] Diastolic blood pressure 2021-03-18 03:16:13 80 mm[Hg] [facility] Heart rate 2021-03-18 03:16:13 80 /min [facility] Body temperature 2021-03-18 03:16:13 36.67 Cindi [facility] Respiratory rate 2021-03-18 03:16:13 19 /min [facility] Oxygen saturation in Arterial blood by Pulse oximetry 2021-03-18 03:16:13 99 /min [facility] Body weight 2021-03-18 01:02:00 129.729 kg [facility] BMI 2021-03-18 01:02:00 33.91 kg/m2 [facility] Systolic blood pressure 2021-03-18 03:16:13 140 mm[Hg] [facility] Diastolic blood pressure 2021-03-18 03:16:13 80 mm[Hg] [facility] Heart rate 2021-03-18 03:16:13 80 /min [facility] Body temperature 2021-03-18 03:16:13 36.67 [facility] Respiratory rate 2021-03-18 03:16:13 19 /min [facility] Oxygen saturation in Arterial blood by Pulse oximetry 2021-03-18 03:16:13 99 /min [facility] Body weight 2021-03-18 01:02:00 129.729 kg [facility] BMI 2021-03-18 01:02:00 33.91 kg/m2 [facility] Oxygen saturation in Arterial blood by Pulse oximetry 2020-11-15 04:31:00 97 /min [facility] Systolic blood pressure 2020-11-15 03:25:00 173 mm[Hg] [facility] Diastolic blood pressure 2020-11-15 03:25:00 97 mm[Hg] [facility] Heart rate 2020-11-15 03:25:00 84 /min [facility] Body temperature 2020-11-15 03:25:00 36.67 Cindi [facility] Respiratory rate 2020-11-15 03:25:00 20 /min [facility] Body weight 2020-11-15 03:25:00 132.45 kg Univ [facility] BMI 2020-11-15 03:25:00 34.63 kg/m2 [facility] Oxygen saturation in Arterial blood by Pulse oximetry 2020-11-15 04:31:00 97 /min [facility] Systolic blood pressure 2020-11-15 03:25:00 173 mm[Hg] [facility] Diastolic blood pressure 2020-11-15 03:25:00 97 mm[Hg] [facility] Heart rate 2020-11-15 03:25:00 84 /min [facility] Body temperature 2020-11-15 03:25:00 36.67 Cindi [facility] Respiratory rate 2020-11-15 03:25:00 20 /min [facility] Body weight 2020-11-15 03:25:00 132.45 kg Univ [facility] BMI 2020-11-15 03:25:00 34.63 kg/m2 [facility] Systolic blood pressure 2020-09-30 16:30:00 121 mm[Hg] [facility] Diastolic blood pressure 2020-09-30 16:30:00 66 mm[Hg] [facility] Heart rate 2020-09-30 16:30:00 72 /min [facility] Respiratory rate 2020-09-30 16:30:00 19 /min [facility] Oxygen saturation in Arterial blood by Pulse oximetry 2020-09-30 16:30:00 94 /min [facility] Body weight 2020-09-30 14:20:00 136.079 kg [facility] BMI 2020-09-30 14:20:00 35.57 kg/m2 [facility] Body temperature 2020-09-30 14:10:00 37.06 Cindi [facility] Systolic blood pressure 2020-09-30 16:30:00 121 mm[Hg] [facility] Diastolic blood pressure 2020-09-30 16:30:00 66 mm[Hg] [facility] Heart rate 2020-09-30 16:30:00 72 /min [facility] Respiratory rate 2020-09-30 16:30:00 19 /min [facility] Oxygen saturation in Arterial blood by Pulse oximetry 2020-09-30 16:30:00 94 /min [facility] Body weight 2020-09-30 14:20:00 136.079 kg [facility] BMI 2020-09-30 14:20:00 35.57 kg/m2 [facility] Body temperature 2020-09-30 14:10:00 37.06 Cindi [facility] Systolic blood pressure 2020-07-02 04:00:00 132 mm[Hg] [facility] Diastolic blood pressure 2020-07-02 04:00:00 84 mm[Hg] [facility] Heart rate 2020-07-02 04:00:00 89 /min [facility] Oxygen saturation in Arterial blood by Pulse oximetry 2020-07-02 04:00:00 95 /min [facility] Body temperature 2020-07-02 02:53:00 36.94 Cindi [facility] Respiratory rate 2020-07-02 02:53:00 18 /min [facility] Body height 2020-07-02 02:53:00 195.6 cm [facility] Body weight 2020-07-02 02:53:00 136.079 kg [facility] BMI 2020-07-02 02:53:00 35.57 kg/m2 [facility] Systolic blood pressure 2020-07-02 04:00:00 132 mm[Hg] [facility] Diastolic blood pressure 2020-07-02 04:00:00 84 mm[Hg] [facility] Heart rate 2020-07-02 04:00:00 89 /min [facility] Oxygen saturation in Arterial blood by Pulse oximetry 2020-07-02 04:00:00 95 /min [facility] Body temperature 2020-07-02 02:53:00 36.94 Cindi [facility] Respiratory rate 2020-07-02 02:53:00 18 /min [facility] Body height 2020-07-02 02:53:00 195.6 cm [facility] Body weight 2020-07-02 02:53:00 136.079 kg [facility] BMI 2020-07-02 02:53:00 35.57 kg/m2 [facility] [...] Date / Time Performed Performing Clinician Source US GALL BLADDER 2025-04-07 01:26:21 Lion Rodriguez [facility] CREATINE KINASE 2025-04-07 00:38:00 Lion Rodriguez [facility] LIPASE 2025-04-07 00:38:00 Lion Rodriguez [facility] MAGNESIUM 2025-04-07 00:38:00 Jennifer [facility] TROPONIN I 2025-04-07 00:38:00 [facility] COMP. METABOLIC PANEL ([id number]) 2025-04-07 00:38:00 Jennifer [facility] SEDIMENTATION RATE 2025-04-07 00:38:00 [facility] CBC WITH DIFF 2025-04-07 00:38:00 Lion Rodriguez [facility] URINALYSIS 2025-04-07 00:38:00 Lion Rodriguez [facility] EKG-12 LEAD 2024-06-08 00:53:[address] [facility] XR CHEST 2 VW 2024-06-07 22:33:08 Luke Clarke [facility] CREATINE KINASE 2024-06-07 22:26:00 Luke Clarke [facility] LIPASE 2024-06-07 22:26:[address] [facility] MAGNESIUM 2024-06-07 22:26:[address] [facility] TROPONIN I 2024-06-07 22:26:[address] [facility] COMP. METABOLIC PANEL ([id number]) 2024-06-07 22:26:00 Luke Clarke [facility] CBC WITH DIFF 2024-06-07 22:26:00 Luke Clarke [facility] D-DIMER 2024-06-07 22:26:[address] [facility] INFLUENZA A/B RSV COVID NAAT 2024-06-07 22:26:00 Luke Clarke [facility] N-TERMINAL PRO-BNP 2024-06-07 22:26:00 Luke Clarke [facility] CT ABDOMEN PELVIS W CONTRAST 2024-04-02 14:49:11 Trevor Taylor [facility] URINALYSIS 2024-04-02 14:18:00 [facility] LIPASE 2024-04-02 14:12:00 Trevor Taylor [facility] MAGNESIUM 2024-04-02 14:12:00 Claudia, K Tiffanie [facility] TROPONIN I 2024-04-02 14:12:00 ClaudiaTrevor kramer [facility] COMP. METABOLIC PANEL ([id number]) 2024-04-02 14:12:00 Trevor Taylor Tiffanie [facility] LIPID PANEL ([id number])(TOTAL CHOLESTEROL, TRIGLYCERIDES, HDL) 2024-04-02 14:12:00 Trevor Taylor Tiffanie [facility] CBC WITH DIFF 2024-04-02 14:12:00 Trevor Taylor Tiffanie [facility] LIPASE 2024-02-21 03:08:00 Leti Rivas [facility] COMP. METABOLIC PANEL ([id number]) 2024-02-21 03:08:00 Leti Rivas [facility] CBC WITH DIFF 2024-02-21 03:08:00 Leti Rivas [facility] URINALYSIS 2024-02-21 03:08:00 Leti Rivas [facility] CT ABDOMEN PELVIS W CONTRAST 2023-12-10 02:36:24 Abraham Orantes [facility] COMP. METABOLIC PANEL ([id number]) 2023-12-10 02:05:00 Abraham Orantes [facility] CBC WITH DIFF 2023-12-10 02:05:00 Abraham Orantes [facility] URINALYSIS 2023-12-10 02:05:00 Abraham Orantes [facility] CT ABDOMEN PELVIS WO CONTRAST 2023-08-04 04:23:15 Abraham Orantes [facility] BASIC METABOLIC PANEL (NA, K, CL, CO2, GLUCOSE, BUN, CREATININE, CA) 2023-08-04 02:57:00 Abraham Orantes [facility] CBC WITH DIFF 2023-08-04 02:57:00 [facility] 2023-08-04 02:57:00 Abraham Orantes [facility] NOTICE OF PRIVACY PRACTICES 2023-08-04 02:16:09 Doctor Unassigned, [place] [facility] CONSENT/REFUSAL FOR DIAGNOSIS AND TREATMENT 2023-08-04 02:15:41 Doctor Unassigned, [place] [facility] LIPASE 2023-07-25 16:37:00 Trevor Taylor [facility] MAGNESIUM 2023-07-25 16:37:00 Trevor Taylor [facility] TROPONIN I 2023-07-25 16:37:00 Trevor Taylor [facility] COMP. METABOLIC PANEL ([id number]) 2023-07-25 16:37:00 Trevor Taylor [facility] CBC WITH DIFF 2023-07-25 16:37:00 Trevor Taylor [facility] URINALYSIS 2023-07-25 16:37:00 [facility] CONSENT/REFUSAL FOR DIAGNOSIS AND TREATMENT 2023-07-25 15:41:41 Doctor Unassigned, [place] [facility] US GALL BLADDER 2023-07-24 22:46:02 Johnathan Avila [facility] URINALYSIS 2023-07-24 20:10:00 Johnathan Avila [facility] EXTRA TUBE URINE CULTURE 2023-07-24 20:10:00 Ember Avila [facility] LIPASE 2023-07-24 20:09:00 Johnathan Avila [facility] COMP. METABOLIC PANEL ([id number]) 2023-07-24 20:09:00 Johnathan Avila [facility] LIPID PANEL ([id number])(TOTAL CHOLESTEROL, TRIGLYCERIDES, HDL) 2023-07-24 20:09:00 Johnathan Avila [facility] CBC WITH DIFF 2023-07-24 20:09:00 Johnathan Avila [facility] CONSENT/REFUSAL FOR DIAGNOSIS AND TREATMENT 2023-07-24 18:31:11 Doctor Unassigned, [place] [facility] XR CHEST 2 VW 2023-07-12 03:54:00 [facility] 2023-07-12 02:31:00 [facility] 2023-07-12 02:14:00 Norm Saleh [facility] COMP. METABOLIC PANEL ([id number]) 2023-07-12 02:14:00 Norm Saleh [facility] CBC WITH DIFF 2023-07-12 02:14:00 Norm Saleh [facility] COVID-19 (ID NOW RAPID TESTING) 2023-07-12 02:14:00 Norm Saleh [facility] CONSENT/REFUSAL FOR DIAGNOSIS AND TREATMENT 2023-07-12 01:47:09 Doctor Unassigned, [place] [facility] CONSENT FOR MEDICAL TREATMENT OF A MINOR 2023-07-10 05:01:00 Doctor Unassigned, [place] [facility] CT ABDOMEN PELVIS W CONTRAST 2023-07-03 10:43:57 Haresh Santamaria [facility] URINALYSIS 2023-07-03 10:23:00 Haresh Santamaria [facility] LIPASE 2023-07-03 10:11:00 Haresh Santamaria [facility] COMP. METABOLIC PANEL ([id number]) 2023-07-03 10:11:00 Haresh Santamarai [facility] CBC WITH DIFF 2023-07-03 10:11:00 Haresh Santamaria [facility] CONSENT/REFUSAL FOR DIAGNOSIS AND TREATMENT 2023-07-03 09:36:41 Doctor Unassigned, [place] [facility] CT ABDOMEN PELVIS W CONTRAST 2023-05-08 02:15:59 Riya Joseph Connie [facility] HB ABO GROUPING 2023-05-08 01:25:00 Elvin Joseph Marie [facility] LIPASE 2023-05-08 01:19:00 Elvin Joseph Marie [facility] COMP. METABOLIC PANEL ([id number]) 2023-05-08 01:19:00 Riya Joseph Connie [facility] CBC WITH DIFF 2023-05-08 01:19:00 Elvin Joseph Marie [facility] COVID-19 (ID NOW RAPID TESTING) 2023-05-08 01:19:00 Jake Riya [facility] CONSENT/REFUSAL FOR DIAGNOSIS AND TREATMENT 2023-05-07 22:22:14 Doctor Unassigned, [place] [facility] LIPASE 2023-05-02 03:01:00 Aydin Matos [facility] COMP. METABOLIC PANEL ([id number]) 2023-05-02 03:01:00 Aydin Matos [facility] ETHANOL 2023-05-02 03:01:00 Aydin Matos [facility] CBC WITH DIFF 2023-05-02 03:01:00 Aydin Matos [facility] URINALYSIS 2023-05-02 03:01:00 Aydin Matos [facility] URINE DRUG (IMMUNOASSAY) - COMPREHENSIVE DRUG SCREEN W/O REFLEX 2023-05-02 03:01:00 Aydin Matos [facility] CONSENT/REFUSAL FOR DIAGNOSIS AND TREATMENT 2023-05-02 02:28:20 Doctor Unassigned, [place] [facility] BASIC METABOLIC PANEL (NA, K, CL, CO2, GLUCOSE, BUN, CREATININE, CA) 2023-04-22 16:47:00 Natali Alexander [facility] LIPASE 2023-04-22 12:58:00 [facility]OLIC PANEL (NA, K, CL, CO2, GLUCOSE, BUN, CREATININE, CA) 2023-04-22 12:58:00 Natali Alexander [facility] URINALYSIS 2023-04-22 11:44:00 Abraham Orantes [facility] CREATINE KINASE 2023-04-22 09:06:00 Natali Alexander [facility] LIPASE 2023-04-22 09:06:00 Natali Alexander [facility] COMP. METABOLIC PANEL ([id number]) 2023-04-22 09:06:00 Abraham Orantes [facility] CBC WITH DIFF 2023-04-22 09:06:00 Abraham Orantes [facility] CONSENT/REFUSAL FOR DIAGNOSIS AND TREATMENT 2023-04-22 08:52:58 Doctor Unassigned, [place] [facility] LIPASE 2023-04-16 12:30:00 Christa [facility] TROPONIN I 2023-04-16 12:30:00 Christa [facility] COMP. METABOLIC PANEL ([id number]) 2023-04-16 12:30:00 [facility] 2023-04-16 12:30:00 Christa [facility] CONSENT/REFUSAL FOR DIAGNOSIS AND TREATMENT 2023-04-16 11:48:23 Doctor Unassigned, [place] [facility] LIPASE 2023-04-01 05:08:00 Hemalatha Mora [facility] TROPONIN I 2023-04-01 05:08:00 Hemalatha Mora [facility] COMP. METABOLIC PANEL ([id number]) 2023-04-01 05:08:00 Hemalatha Mora [facility] CBC WITH DIFF 2023-04-01 05:08:00 Hemalatha Mora [facility] URINALYSIS 2023-04-01 05:08:00 Hemalatha Mora [facility] CONSENT/REFUSAL FOR DIAGNOSIS AND TREATMENT 2023-04-01 04:51:45 Doctor Unassigned, [place] [facility] ASSIGNMENT OF BENEFITS 2023-02-13 21:19:49 Docto r Unassigned, [place] [facility] POCT GLUCOSE (AUTOMATED) 2023-02-13 21:00:00 Alan Gonzales [facility] CONSENT/REFUSAL FOR DIAGNOSIS AND TREATMENT 2023-02-13 20:50:30 Doctor Unassigned, [place] [facility] REFERRAL- REQUEST/RESPONSE 2023-01-05 05:01:00 Doctor Unassigned, [place] [facility] LIPASE 2022-12-09 05:03:00 Soham Clarke [facility] COMP. METABOLIC PANEL ([id number]) 2022-12-09 05:03:00 Soham Clarke [facility] CBC WITH DIFF 2022-12-09 05:03:00 [facility] 2022-12-09 05:03:00 Soham Clarke [facility] NOTICE OF PRIVACY PRACTICES 2022-12-09 04:46:36 Doctor Unassigned, [place] [facility] CONSENT/REFUSAL FOR DIAGNOSIS AND TREATMENT 2022-12-09 04:46:16 Doctor Unassigned, [place] [facility] CT ABDOMEN PELVIS W CONTRAST 2022-11-25 05:38:20 Lion Rodriguez [facility] LIPASE 2022-11-25 05:06:00 Lion [facility] HEPATIC FUNCTION PANEL ([id number]) (ALB,T.PRO,BILI T,BU/BC,ALT,AST,ALK PHOS) 2022-11-25 05:06:00 Lion Rodriguez [facility] BASIC METABOLIC PANEL (NA, K, CL, CO2, GLUCOSE, BUN, CREATININE, CA) 2022-11-25 05:06:00 Lion Rodriguez [facility] CBC WITH DIFF 2022-11-25 05:06:00 Lion Rodriguez [facility] URINALYSIS 2022-11-25 05:06:00 Lion Rodriguez [facility] CONSENT/REFUSAL FOR DIAGNOSIS AND TREATMENT 2022-11-25 04:35:51 Doctor Unassigned, [place] [facility] EXTERNAL PROVIDER RECORDS 2022-10-23 06:01:00 Do ctor Unassigned, [place] [facility] CBC WITH DIFF 2022-10-12 21:26:00 [facility] PROSTATIC SPECIFIC ANTIGEN 2022-10-12 10:48:00 Jonh Roman [facility] HEPATIC FUNCTION PANEL ([id number]) (ALB,T.PRO,BILI T,BU/BC,ALT,AST,ALK PHOS) 2022-10-12 10:48:00 Lb Bates [facility] BASIC METABOLIC PANEL (NA, K, CL, CO2, GLUCOSE, BUN, CREATININE, CA) 2022-10-12 10:48:00 Lb Bates [facility] CBC WITH DIFF 2022-10-12 10:48:00 Lb Bates [facility] HEPATIC FUNCTION PANEL ([id number]) (ALB,T.PRO,BILI T,BU/BC,ALT,AST,ALK PHOS) 2022-10-11 23:53:00 Lb Bates [facility] BASIC METABOLIC PANEL (NA, K, CL, CO2, GLUCOSE, BUN, CREATININE, CA) 2022-10-11 23:53:00 Lb Bates [facility] US GALL BLADDER 2022-10-11 22:28:58 Jana Lb [facility] ABORH CONFIRMATION (LAB ONLY) 2022-10-11 21:24:00 Jana [facility] URINALYSIS 2022-10-11 21:23:00 Lb Bates Uni [facility] HB ABO GROUPING 2022-10-11 20:41:00 Lb Bates [facility] CBC WITH DIFF 2022-10-11 20:35:00 Lb Bates [facility] CT ANGIOGRAM ABDOMEN/PELVIS 2022-10-11 14:52:00 Aydin Matos [facility] HB ECG ROUTINE & RHYTHM STRIP 2022-10-11 13:48:04 Aydin Matos [facility] LIPASE 2022-10-11 13:42:00 Aydin Matos [facility] TROPONIN I 2022-10-11 13:42:00 Aydin Matos [facility] COMP. METABOLIC PANEL ([id number]) 2022-10-11 13:42:00 Aydin Matos [facility] LIPID PANEL ([id number])(TOTAL CHOLESTEROL, TRIGLYCERIDES, HDL) 2022-10-11 13:42:00 Lb Bates [facility] CBC WITH DIFF 2022-10-11 13:42:00 Aydin Matos [facility] PROTHROMBIN TIME / INR 2022-10-11 13:42:00 Nicholas Matos [facility] ACTIVATED PARTIAL THRMPLAS TAE 2022-10-11 13:42:00 Aydin Matos [facility] N-TERMINAL PRO-BNP 2022-10-11 13:42:00 Aydin Matos [facility] URINE DRUG (IMMUNOASSAY) - COMPREHENSIVE DRUG SCREEN W/O REFLEX 2022-10-11 13:42:00 Aydin Matos [facility] CONSENT/REFUSAL FOR DIAGNOSIS AND TREATMENT 2022-10-11 12:24:48 Doctor Unassigned, [place] [facility] CT ABDOMEN PELVIS W CONTRAST 2022-10-09 06:30:25 Abraham Orantes [facility] LIPASE 2022-10-09 05:24[facility]00 [facility] MET[facility]OLIC [facility] ([id number]) 2022-10-09 05:24:00 Abraham Orantes [facility] CBC WITH DIFF 2022-10-09 05:24:00 Abraham Orantes [facility] URINALYSIS 2022-10-09 05:24:00 Abraham Orantes [facility] CONSENT/REFUSAL FOR DIAGNOSIS AND TREATMENT 2022-10-09 03:56:57 Doctor Unassigned, [place] [facility] COMP. METABOLIC PANEL ([id number]) 2022-08-20 15:11:00 Trevor Taylor [facility] CBC WITH DIFF 2022-08-20 15:11:00 Trevor Taylor [facility] URINALYSIS 2022-08-20 15:11:00 Trevor Taylor [facility] CONSENT/REFUSAL FOR DIAGNOSIS AND TREATMENT 2022-08-20 14:32:58 Doctor Unassigned, [place] [facility] CT ABDOMEN PELVIS W CONTRAST 2022-06-09 13:12:35 Soham Clarke [facility] LIPASE 2022-06-09 12:48:00 Soham Clarke [facility] COMP. METABOLIC PANEL ([id number]) 2022-06-09 12:48:00 Soham Clarke [facility] CBC WITH DIFF 2022-06-09 12:48:00 [facility] 2022-06-09 12:48:00 Soham Clarke [facility] NOTICE OF PRIVACY PRACTICES 2022-06-09 11:47:39 Doctor Unassigned, [place] [facility] CONSENT/REFUSAL FOR DIAGNOSIS AND TREATMENT 2022-06-09 11:47:18 Doctor Unassigned, [place] [facility] PHOSPHORUS 2021-11-01 09:55:00 Jerrica Sexton [facility] MAGNESIUM 2021-11-01 09:55:00 Darshan [facility] BASIC METABOLIC PANEL (NA, K, CL, CO2, GLUCOSE, BUN, CREATININE, CA) 2021-11-01 09:55:00 Darshan [facility] CBC WITH DIFF 2021-11-01 09:55:00 Jerrica Sexton [facility] PHOSPHORUS 2021-10-31 08:45:00 Roxanne Swenson [facility] CREATINE KINASE 2021-10-31 08:45:00 Roxanne Swenson [facility] MAGNESIUM 2021-10-31 08:45:[address] [facility] TROPONIN I 2021-10-31 08:45:00 Roxanne Swenson [facility] COMP. METABOLIC PANEL ([id number]) 2021-10-31 08:45:00 Roxanne Swenson [facility] CBC WITH DIFF 2021-10-31 08:45:00 Emelia Gallego [facility] PROTHROMBIN TIME / INR 2021-10-31 08:45:00 Ramos Swenson [facility] N-TERMINAL PRO-BNP 2021-10-31 08:45:00 Roxanne Swenson [facility] LACTIC ACID WHOLE BLOOD 2021-10-31 08:45:00 Erwin Swenson [facility] FECES CULTURE 2021-10-30 22:27:00 Monica Hernandez [facility] OCCULT (GUAIAC) BLOOD 2021-10-30 22:27:00 Juany Hernandez [facility] CLOSTRIDIUM DIFFICILE TOXIN 2021-10-30 22:27:00 Monica Hernandez [facility] COVID-19 (ID NOW RAPID TESTING) 2021-10-30 21:24:00 Madison Sepulveda [facility] LAB ONLY COVID INTERPRETATION 2021-10-30 21:24:00 Madison Sepulveda [facility] CT ABDOMEN PELVIS W CONTRAST 2021-10-30 20:44:09 Madison Sepulveda [facility] LIPASE 2021-10-30 20:25:00 Madison Sepulveda [facility] TROPONIN I 2021-10-30 20:25:00 Roxanne Swenson [facility] COMP. METABOLIC PANEL (76847) 2021-10-30 20:25:00 Madison Sepulveda [facility] CBC WITH DIFF 2021-10-30 20:25:00 Madison Sepulveda [facility] URINALYSIS 2021-10-30 20:25:00 Madison Sepulveda [facility] N-TERMINAL PRO-BNP 2021-10-30 20:25:00 Roxanne Swenson [facility] CONSENT/REFUSAL FOR DIAGNOSIS AND TREATMENT 2021-10-30 19:24:05 Doctor Unassigned, [place] [facility] CREATINE KINASE 2021-05-24 04:40:00 Felipe Ortega U [facility] BASIC METABOLIC PANEL (NA, K, CL, CO2, GLUCOSE, BUN, CREATININE, CA) 2021-05-24 04:40:00 Felipe Ortega [facility] URINALYSIS 2021-05-24 02:14:00 Felipe Ortega [facility] CREATINE KINASE 2021-05-24 01:53:00 Felipe Ortega U [facility] TROPONIN I 2021-05-24 01:53:00 Felipe Ortega [facility] COMP. METABOLIC PANEL (88650) 2021-05-24 01:53:00 Felipe Ortega [facility] CBC WITH DIFF 2021-05-24 01:53:00 Felipe Ortega [facility] N-TERMINAL PRO-BNP 2021-05-24 01:53:00 Felipe Ortega [facility] ASSIGNMENT OF BENEFITS 2021-05-23 00:46:04 Docto r Unassigned, [place] [facility] CONSENT/REFUSAL FOR DIAGNOSIS AND TREATMENT 2021-05-22 23:31:57 Doctor Unassigned, [place] [facility] SARS-COV-2 COVID-19 VACCINE,0.3ML,IM (PFIZER) 2021-05-07 16:12:40 Doctor Unassigned, [place] [facility] RAPID STREP SCREEN FOR GROUP A 2021-05-02 00:07:00 Aydin Matos [facility] COVID-19 (ID NOW RAPID TESTING) 2021-05-02 00:07:00 Aydin Matos [facility] CONSENT/REFUSAL FOR DIAGNOSIS AND TREATMENT 2021-05-01 23:56:07 Doctor Unassigned, [place] [facility] RAPID STREP SCREEN FOR GROUP A 2021-04-02 01:05:00 Nikhil Blanton [facility] COVID-19 (ID NOW RAPID TESTING) 2021-04-02 01:05:00 Nikhil Blanton [facility] NOTICE OF PRIVACY PRACTICES 2021-04-02 00:56:18 Doctor Unassigned, [place] [facility] CONSENT/REFUSAL FOR DIAGNOSIS AND TREATMENT 2021-04-02 00:49:05 Doctor Unassigned, [place] [facility] XR WRIST 3+ VW LEFT 2021-03-18 01:19:59 Destini Blanton [facility] URINALYSIS 2021-03-18 01:12:00 Nikhil Blanton [facility] CONSENT/REFUSAL FOR DIAGNOSIS AND TREATMENT 2021-03-18 00:56:01 Doctor Unassigned, [place] [facility] XR CHEST 1 VW 2020-11-15 03:48:28 Darnell Hsu [facility] CONSENT/REFUSAL FOR DIAGNOSIS AND TREATMENT 2020-11-15 03:11:27 Doctor Unassigned, [place] [facility] CT HEAD WO CONTRAST 2020-09-30 15:00:43 Jessica Siddiqui ra [facility] XR CHEST 1 VW 2020-09-30 14:37:13 Jessy Siddiqui U [facility] LIPASE 2020-09-30 14:25:00 [facility] 2020-09-30 14:25:00 [facility] COMP. METABOLIC PANEL (12731) 2020-09-30 14:25:00 Jessy Siddiqui [facility] CBC WITH DIFF 2020-09-30 14:25:00 Jessy Siddiqui U [facility] N-TERMINAL PRO-BNP 2020-09-30 14:25:00 Solitario Siddiqui [facility] NOTICE OF PRIVACY PRACTICES 2020-09-30 13:57:13 Doctor Unassigned, [place] [facility] CONSENT/REFUSAL FOR DIAGNOSIS AND TREATMENT 2020-09-30 13:55:57 Doctor Unassigned, [place] [facility] EKG-12 LEAD 2020-07-02 03:20:42 Felipe Ortega [facility] LIPASE 2020-07-02 03:05:00 Abraham Orantes [facility] TROPONIN I 2020-07-02 03:05:00 Felipe Ortega [facility] COMP. METABOLIC PANEL (35271) 2020-07-02 03:05:00 Abraham Orantes [facility] CBC WITH DIFF 2020-07-02 03:05:00 [facility] 2020-07-02 02:48:43 Doctor Unassigned, [place] [facility] CONSENT/REFUSAL FOR DIAGNOSIS AND TREATMENT 2020-07-02 02:46:14 Doctor Unassigned, [place] [facility] Plan of Care Planned Activity Planned Date Details Comments Source Goal Plan of Care Note [code = 38256-5] Goal Plan of Care Note [code = 61336-8] Goal Plan of Care Note [code = 55182-0] Goal Plan of Care Note [code = 75284-5] Goal Plan of Care Note [code = 33815-2] Goal Plan of Care Note [code = 32221-4] Goal Plan of Care Note [code = 63828-4] Goal Plan of Care Note [code = 52036-3] Goal Plan of Care Note [code = 64664-8] Goal Plan of Care Note [code = 39791-3] Goal Plan of Care Note [code = 12184-7] Goal Plan of Care Note [code = 35886-5] Goal Plan of Care Note [code = 01097-2] Goal Plan of Care Note [code = 93268-6] Goal Plan of Care Note [code = 47595-0] Encounters Start Date/Time End Date/Time Encounter Type Admission Type Attending [facility] Care Facility Care Department Encounter ID Source 2022-07-29 14:17:02 Outpatient Mayuri James [facility] [id number] [facility] 2022-07-11 08:20:03 Outpatient Mayuri James [facility] [id number] [facility] 2025-04-06 19:15:00 2025-04-06 23:10:00 Emergency X JENNIFER[facility]ISJESUS [facility] E[facility] [id number] [facility] 2025-03-28 00:00:00 2025-03-28 00:00:00 Outpatient ANSELMO GENAO [id number] Luz Maria Ng 2025-03-22 00:00:00 2025-03-22 00:00:00 Outpatient PREZAS, ANSELMO LUZ MARIA HOLLIDAY [id number] Luz Maria Seybold 2025-03-14 00:00:00 2025-03-14 00:00:00 Outpatient MACKENZIE, LEANDRO LUZ MARIA [facility]LLIDAY [id number] Luz Maria Seybold 2025-03-13 00:00:00 2025-03-13 00:00:00 Outpatient MACKENZIE, LEANDRO LUZ MARIA [facility]LLIDAY [id number] Luz Maria Seybold 2025-02-27 00:00:00 2025-02-27 00:00:00 Outpatient MACKENZIE, LEANDRO LUZ MARIA [facility]IDAY [id number] [facility] 2025-02-13 00:00:00 2025-02-13 00:00:00 Outpatient MACKENZIE, LEANDRO LUZ MARIA [facility] [id number] [facility] 2025-02-10 00:00:00 2025-02-10 00:00:00 Outpatient MACKENZIE, LEANDRO LUZ MARIA HOLLIDAY [id number] Luz Maria Seybold 2025-01-31 10:15:00 2025-01-31 10:15:00 Outpatient PREZAS, ANSELMO LUZ MARIA [facility]LLIDAY [id number] Luz Maria Seybold 2025-01-25 00:00:00 2025-01-25 00:00:00 Outpatient PREZAS, ANSELMO LUZ MARIA [facility]LLIDAY [id number] Luz Maria Seybold 2025-01-03 00:00:00 2025-01-03 00:00:00 Outpatient MACKENZIE, LEANDRO LUZ MARIA HOLLIDAY [id number] Luz Maria Seybold 2025-01-02 09:00:00 2025-01-02 09:00:00 Outpatient MACKENZIE, LEANDROHELLEN HOLLIDAY [id number] Luz Maria Seybold 2024-11-28 00:00:00 2024-11-28 00:00:00 Outpatient PREZAS, ANSELMOHERACLIO HOLLIDAY [id number] Luz Maria Seybold 2024-11-28 00:00:00 2024-11-28 00:00:00 Outpatient PREZAS, ANSELMO HOLLIDAY [id number] Luz Maria Seybold 2024-10-30 00:00:00 2024-10-30 00:00:00 Outpatient PREZAS, ANSELMO HOLLIDAY LUZ MARIA [id number] Luz Maria [facility] 2024-10-26 00:00:00 2024-10-26 00:00:00 Outpatient PREZAS, ANSELMO HOLLIDAY LUZ MARIA [id number] Luz Maria [facility] 2024-10-25 00:00:00 2024-10-25 00:00:00 Outpatient GINUR LUZ MARIA LUZ MARIA [id number] Luz Maria Seybold 2024-10-20 00:00:00 2024-10-20 00:00:00 Outpatient PREZAS, ANSELMO HOLLIDAY LUZ MARIA [id number] Luz Maria [facility] 2024 10:35:00 2024 10:35:00 Outpatient RAI219 LUZ MARIA LUZ MARIA [id number] [facility] 2024 09:45:00 2024 09:45:00 Outpatient PREZAS, ANSELMO HOLLIDAY LUZ MARIA [id number] [facility] 2024-10-17 00:00:00 2024-10-17 00:00:00 Outpatient PREZAS, ANSELMO HOLLIDAY LUZ MARIA [id number] [facility] 2024-10-12 00:00:00 2024-10-12 00:00:00 Outpatient PREZAS, ANSELMO HOLLIDAY LUZ MARIA [id number] [facility] 2024-10-12 00:00:00 2024-10-12 00:00:00 Outpatient PREZAS, ANSELMO HOLLIDAY LUZ MARIA [id number] [facility] 2024-09-27 00:00:00 2024-09-27 00:00:00 Outpatient PREZAS, ANSELMO LUZ MARIA LUZ MARIA [id number] [facility] 2024-08-30 00:00:00 2024-08-30 00:00:00 Outpatient PREZAS, ANSELMO LUZ MARIA LUZ MARIA [id number] [facility] 2024-08-29 09:30:00 2024-08-29 09:30:00 Outpatient MED RAZARY LUZ MARIA HOLLIDAY [id number] [facility] 2024-08-05 08:30:00 2024-08-05 08:30:00 Outpatient ADRI TAYLOR LUZ MARIA [facility]LLIDAY [id number] [facility] 2024-08-03 00:00:00 2024-08-03 00:00:00 Outpatient MD LUZ MARIA AN [id number] Luz Maria [facility] 2024-07-29 00:00:00 2024-07-29 00:00:00 Outpatient PREZASANSELMO LUZ MARIA HOLLIDAY [id number] [facility] 2024-07-28 00:00:00 2024-07-28 00:00:00 Outpatient PREZAS ANSELMO HOLLIDAY [id number] Luz Maria [facility] 2024-07-28 00:00:00 2024-07-28 00:00:00 Outpatient MACKENZIE LEANDRO LUZ MARIA HOLLIDAY [id number] [facility] 2024-07-20 08:45:00 2024-07-20 08:45:00 Outpatient PREZAS ANSELMO HOLLIDAY [id number] [facility] 2024-07-07 00:00:00 2024-07-07 00:00:00 Outpatient PREZAS, ANSELMO HOLLIDAY [id number] [facility] 2024-06-16 00:00:00 2024-06-16 00:00:00 Outpatient PREZAS, ANSELMO LUZ MARIA HOLLIDAY [id number] [facility] 2024-06-07 16:57:00 2024-06-07 20:05:00 Emergency X LUKE CLARKE JOSHUA [facility] ERT [id number] [facility] 2024-06-07 16:57:00 2024-06-07 20:05:00 Emergency Luke Clarke AT [facility] 1.2.840.114 350.1.13.10 4.2.7.2.[id number] [facility] 2024-05-30 09:45:00 2024-05-30 09:45:00 Outpatient PREANNIA ANSELMO HOLLIDAY [id number] [facility] 2024-05-26 08:30:00 2024-05-26 08:30:00 Outpatient HARSHIL STYLES LUZ MARIA HOLLIDAY [id number] Luz Maria Seybold 2024-05-26 00:00:00 2024-05-26 00:00:00 Outpatient ADRI TAYLOR LUZ MARIA [facility]LL[facility] [id number] Luz Maria Seybold 2024-05-25 00:00:00 2024-05-25 00:00:00 Outpatient PREZAANSELMO Genao LUZ MARIA HOLLIDAY [id number] Luz Maria Seybold 2024-05-24 15:00:00 2024-05-24 15:00:00 Outpatient PREZAS ANSELMO HOLLIDAY [id number] [facility] 2024-05-23 00:00:00 2024-05-23 00:00:00 Outpatient MD LUZ MARIA AN [id number] [facility] 2024-05-18 11:10:00 2024-05-18 11:10:00 Outpatient NEPTALIFOUZIA LUZ MARIA HOLLIDAY [id number] [facility] 2024-05-12 00:00:00 2024-05-12 00:00:00 Outpatient LUZ MARIA HOLLIDAY [id number] [facility] 2024-05-09 00:00:00 2024-05-09 00:00:00 Outpatient PREZAANSELMO Genao LUZ MARIA HOLLIDAY [id number] Luz Maria Seybold 2024-05-05 00:00:00 2024-05-05 00:00:00 Outpatient DEEJAYGIBRAN BAUTISTA LUZ MARIA HOLLIDAY [id number] Luz Maria Seybold 2024-05-04 08:30:00 2024-05-04 08:30:00 Outpatient LUZ MARIA HOLLIDAY [id number] Luz Maria Seybold 2024-04-29 00:00:00 2024-04-29 00:00:00 Outpatient PREZASANSELMO LUZ MARIA HOLLIDAY [id number] Luz Maria Seybold 2024-04-22 08:00:00 2024-04-22 08:00:00 Outpatient LUZ MARIA HOLLIDAY [id number] Luz Maria Seybold 2024-04-12 09:40:00 2024-04-12 09:40:00 Outpatient BROOK ALLEN LUZ MARIA HOLLIDAY [id number] [facility] 2024-04-11 08:00:00 2024-04-11 08:00:00 Outpatient LUZ MARIA HOLLIDAY [id number] Luz Maria [facility] 2024-04-11 00:00:00 2024-04-11 00:00:00 Outpatient GIBRAN MCADAMS [id number] [facility] 2024-04-08 16:30:00 2024-04-08 16:30:00 Outpatient LEANDRO MANN LUZ MARIA [facility]LLIDAY [id number] [facility] 2024-04-04 08:10:00 2024-04-04 08:10:00 Outpatient LAB90 LUZ MARIA HOLLIDAY [id number] Luz Maria [facility] 2024-04-02 08:39:00 2024-04-02 12:55:00 Emergency X Trevor TAYLOR K [facility] ERT [id number] [facility] 2024-04-02 08:39:00 2024-04-02 12:55:00 Emergency Trevor Taylor [facility] 1.2.840.114 350.1.13.10 4.2.7.2.[id number] [facility] 2024-04-02 00:00:00 2024-04-02 00:00:00 Out[facility]ID[facility] [id number] [facility]-30 09:00:00 2024-03-30 09:00:00 Outpatient LAB47 LUZ MARIA HOLLIDAY [id number] [facility] 2024-03-30 08:30:00 2024-03-30 08:30:00 Outpatient GIBRAN MCADAMS [id number] Luz Maria [facility] 2024-03-30 00:00:00 2024-03-30 00:00:00 Outpatient GIBRAN MCADAMS [id number] [facility] 2024-03-30 00:00:00 2024-03-30 00:00:00 Outpatient ANSELMO GENAO [id number] [facility] 2024-03-28 00:00:00 2024-03-28 00:00:00 Outpatient PREZAANSELMO Genao [id number] Luz Maria [facility] 2024-03-23 00:00:00 2024-03-23 00:00:00 Outpatient PREZAANSELMO Genao [id number] [facility] 2024-02-29 00:00:00 2024-02-29 13:30:22 Letter (Out) Karl Ferguson [facility] 1..840.114 350.1.13.10 4.2.7.2.[id number] [facility] 2024-02-24 00:00:00 2024-02-24 00:00:00 Outpatient OUTSIDE, MELINA HOLLIDAY [id number] [facility] 2024-02-24 00:00:00 2024-02-24 00:00:00 Outpatient PREZAS, ANSELMO HOLLIDAY [id number] [facility] 2024-02-22 00:00:00 2024-02-22 14:50:01 Letter (Out) Elida Lewis [facility] 1..840.114 350.1.13.10 4.2.7.2.[id number] [facility] 2024-02-22 00:00:00 2024-02-22 00:00:00 Outpatient PREZAS, ANSELMO HOLLIDAY [id number] [facility] 2024-02-20 21:47:00 2024-02-20 23:54:00 Emergency X LETI RIVAS ERICCA [facility] ERT [id number] [facility] 2024-02-20 21:47:00 2024-02-20 23:54:00 Emergency Leti Rivas [facility] ..840.114 350.1.13.10 4.2.7.2.[id number] [facility] 2024-01-26 00:00:00 2024-01-26 00:00:00 Outpatient PREZAANSELMO Genao [id number] Luz Maria [facility] 2024-01-15 00:00:00 2024-01-15 00:00:00 Outpatient PREZASANSELMO [id number] [facility] 2023-12-28 00:00:00 2023-12-28 00:00:00 Outpatient PREZAS, ANSELMO HOLLIDAY [id number] [facility] 2023-12-18 00:00:00 2023-12-18 00:00:00 Outpatient LUZ MARIA HOLLIDAY [id number] Luz Maria [facility] 2023-12-17 15:30:00 2023-12-17 15:30:00 Outpatient PREZAS, ANSELMO HOLLIDAY LUZ MARIA [id number] Luz Maria [facility] 2023-12-11 00:00:00 2023-12-11 00:00:00 Outpatient PREZAS, ANSELMO HOLLIDAY [id number] Luz Maria [facility] 2023-12-09 20:14:00 2023-12-09 23:50:00 Emergency X RUDY ORANTESMAGDIEL [facility] ERT [id number] [facility] 2023-12-09 20:14:00 2023-12-09 23:50:00 Emergency Abraham Orantes S [facility] ..840.114 350.1.13.10 4.2.7.2.[id number] [facility] 2023-11-24 00:00:00 2023-11-24 00:00:00 Outpatient PREZAANSELMO Genao LUZ MARIA [id number] [facility] 2023-11-18 00:00:00 2023-11-18 00:00:00 Letter (Out) Chavez Turner [facility] ..840.114 350.1.13.10 4.2.7.2.[id number] [facility] 2023-11-10 14:00:00 2023-11-10 14:00:00 Outpatient ANSELMO GENAO LUZ MARIA [id number] Luz Maria [facility] 2023-11-09 00:00:00 2023-11-09 00:00:00 Outpatient ANSELMO GENAO LUZ MARIA HOLLIDAY [id number] Luz Maria [facility] 2023-11-06 00:00:00 2023-11-06 00:00:00 Outpatient ANSELMO GENAO LUZ MARIA HOLLIDAY [id number] Luz Maria [facility] 2023 11:30:00 2023 11:30:00 Outpatient CALLIE THORNE JULIANA [facility] [id number] [facility] 2023-10-16 00:00:00 2023-10-16 00:00:00 Outpatient ANSELMO GENAO LUZ MARIA HOLLIDAY [id number] [facility] 2023-10-13 00:00:00 2023-10-13 00:00:00 Outpatient LUZ MARIA HOLLIDAY [id number] Luz Maria [facility] 2023-10-06 14:30:00 2023-10-06 14:30:00 Outpatient ANSELMO GENAO LUZ MARIA HOLLIDAY [id number] [facility] 2023-08-14 00:00:00 2023-08-14 00:00:00 Outpatient MERLYN WORTHINGTON [facility] [id number] [facility] 2023-08-13 00:00:00 2023-08-13 00:00:00 Patient Secure Msg Doctor Unassigned, [place] [facility] 1.2.840.114 350.1.13.10 4.2.7.2.[id number] [facility] 2023-08-11 16:15:00 2023-08-11 16:15:00 Outpatient ADAN CHESTER [id number] [facility] 2023-08-03 20:26:00 2023-08-04 00:05:00 Emergency X ABRAHAM ORANTES [facility] ERT [id number] [facility] 2023-08-03 20:26:00 2023-08-04 00:05:00 Emergency Abraham Orantes [facility] 1.2.840.114 350.1.13.10 4.2.7.2.[id number] [facility] 2023-08-03 00:00:00 2023-08-03 00:00:00 Outpatient KIARA RICHARDSON [id number] Luz Maria Ng 2023-08-03 00:00:00 2023-08-03 00:00:00 Orders Only Doctor Unassigned, [place] [facility] 1.2.840.114 350.1.13.10 4.2.7.2.[id number] [facility] 2023-07-25 09:58:00 2023-07-25 12:56:00 Emergency X Trevor TAYLOR [facility] ERT [id number] [facility] 2023-07-25 09:58:00 2023-07-25 12:56:00 Emergency Trevor Taylor Tiffanie [facility] 1.2.840.114 350.1.13.10 4.2.7.2.[id number] [facility] 2023-07-24 12:36:00 2023-07-24 17:49:00 Emergency X JOHNATHAN AVILA [facility] ERT [id number] [facility] 2023-07-24 12:36:00 2023-07-24 17:49:00 Emergency Johnathan Avila [facility] 1.2.840.114 350.1.13.10 4.2.7.2.[id number] [facility] 2023-07-24 14:30:00 2023-07-24 14:30:00 Outpatient ADAN CHESTER LUZ MARIA HOLLIDAY [id number] [facility] 2023-07-24 00:00:00 2023-07-24 00:00:00 [facility] 1..840.114 350.1.13.10 4.2.7.2.[id number] [facility] 2023-07-23 05:22:00 2023-07-23 10:02:00 Emergency EM Jessie Paul [facility] [id number] [facility] 2023-07-22 00:00:00 2023-07-22 00:00:00 [facility] 1..840.114 350.1.13.10 4.2.7.2.[id number] [facility] 2023-07-22 00:00:00 2023-07-22 00:00:00 Patient Secure Msg Doctor Unassigned, [place] [facility] ..840.114 350.1.13.10 4.2.7.2.[id number] [facility] 2023-07-20 00:00:00 2023-07-20 00:00:00 Telephone [facility] ..840.114 350.1.13.10 4.2.7.2.[id number] [facility] 2023-07-17 13:45:00 2023-07-17 13:45:00 Outpatient JIMMY BRENNAN [id number] Luz Maria [facility] 2023-07-11 20:53:00 2023-07-11 23:38:00 Emergency X STEPHIE HEWITT [facility] ERT [id number] [facility] 2023-07-11 20:53:00 2023-07-11 23:38:00 Emergency [facility] 1.2840.114 350.1.13.10 4.2.7.2.[id number] [facility] 2023-07-10 08:45:00 2023-07-10 12:03:37 Outpatient R MERLYN HIDALGO [facility] [id number] [facility] 2023-07-10 08:45:00 2023-07-10 12:03:37 Office Visit Merlyn Hidalgo [facility] 1.2840.114 350.1.13.10 4.2.7.2.[id number] [facility] 2023-07-10 00:00:00 2023-07-10 00:00:00 Orders Only Doctor Unassigned, [place] [facility] 1..840.114 350.1.13.10 4.2.7.2.[id number] [facility] 2023-07-08 09:15:00 2023-07-08 09:15:00 Outpatient KIARA RICHARDSON [id number] Luz Maria Ng 2023-07-03 04:49:00 2023-07-03 09:47:00 Emergency [facility] [id number] [facility] 2023-07-03 04:49:00 2023-07-03 09:47:00 Emergency Haresh Santamaria [facility] 1.840.114 350.1.13.10 4.2.7.2.[id number] [facility] 2023-07-01 22:56:00 2023-07-02 01:00:00 Emergency Jessie Billingsley [facility] ER [id number] [facility] 2023-05-20 15:50:00 2023-05-20 15:50:00 Outpatient LAB56 LUZ MARIA HOLLIDAY [id number] Luz Maria Ng 2023-05-20 15:15:00 2023-05-20 15:15:00 Outpatient KIARA RICHARDSON [id number] Luz Maria Ng 2023-05-07 17:37:00 2023-05-07 23:23:00 Emergency X MANFRED KAN [facility] ERT [id number] [facility] 2023-05-07 17:37:00 2023-05-07 23:23:00 Emergency Kelsi hensley [facility] 1.2.840.114 350.1.13.10 4.2.7.2.[id number] [facility] 2023-05-01 21:39:00 2023-05-02 00:35:00 Emergency X AYDIN MATOS [facility] ERT [id number] [facility] 2023-05-01 21:39:00 2023-05-02 00:35:00 Emergency MatosAydin [facility] 1.2.840.114 350.1.13.10 4.2.7.2.[id number] [facility] 2023-04-22 03:51:00 2023-04-22 13:11:00 Emergency X DON AULTMAN [facility] E[facility] [id number] [facility] 2023-04-22 03:51:00 2023-04-22 13:11:00 Emergency Abraham Orantes [facility] 1.2.840.114 350.1.13.10 4.2.7.2.[id number] [facility] 2023-04-16 07:09:00 2023-04-16 09:00:00 Emergency X ADELAIDE GOODWIN [facility] ERT [id number] [facility] 2023-04-16 07:09:00 2023-04-16 09:00:00 Emergency Adelaide [facility] 1.2840.114 350.1.13.10 4.2.7.2.686 [id number] [facility] 2023-03-31 23:59:00 2023-04-01 03:24:00 Emergency X HEMALATHA MORA [facility] ERT [id number] [facility] 2023-03-31 23:59:00 2023-04-01 03:24:00 Emergency Hemalatha Mora [facility] 1.2840.114 350.1.13.10 4.2.7.2.[id number] [facility] 2023-02-13 16:02:00 2023-02-13 17:25:00 Emergency X BRIGHTJESSICA [facility] ERT [id number] [facility] 2023-02-13 16:02:00 2023-02-13 17:25:00 Emergency Jessica Gonzales S [facility] 1.2840.114 350.1.13.10 4.2.7.2.[id number] [facility] 2023-01-05 00:00:00 2023-01-05 00:00:00 Orders Only Doctor Unassigned, [place] [facility] 1.2840.114 350.1.13.10 4.2.7.2.[id number] [facility] 2022-12-29 17:25:40 2022-12-29 17:25:40 Outpatient [facility] [id number] 0417 Dewey Ponce 2022-12-09 00:01:00 2022-12-09 01:39:00 Emergency X SOHMA CLARKE [facility] ERT [id number] [facility] 2022-12-09 00:01:00 2022-12-09 01:39:00 Emergency Soham Clarke [facility] 1.2840.114 350.1.13.10 4.2.7.2.[id number] [facility] 2022-11-24 23:44:00 2022-11-25 02:56:00 Emergency X AYDIN MATOS [facility] ERT [id number] [facility] 2022-11-24 23:44:00 2022-11-25 02:56:00 Emergency Lion Rodriguez [facility] 1.2.840.114 350.1.13.10 4.2.7.2.[id number] [facility] 2022-10-25 00:00:00 2022-10-25 00:00:00 Patient Secure Msg Doctor Unassigned, [place] [facility] 1.2.840.114 350.1.13.10 4.2.7.2.[id number] [facility] 2022-10-23 00:00:00 2022-10-23 00:00:00 Orders Only Doctor Unassigned, [place] [facility] 1.2840.114 350.1.13.10 4.2.7.2.[id number] [facility] 2022-10-11 06:41:00 2022-10-12 17:56:00 Outpatient X MARK HERNANDEZ [facility] MARTI [id number] [facility] 2022-10-11 06:41:00 2022-10-12 17:56:00 Emergency Aydin Matos Norman [facility] 1.2840.114 350.1.13.10 4.2.7.2.[id number] [facility] 2022-10-08 22:15:00 2022-10-09 01:39:00 Emergency X ABRAHAM ORANTES [facility] ERT [id number] [facility] 2022-10-08 22:15:00 2022-10-09 01:39:00 Emergency Abraham Orantes [facility] 1.2.840.114 350.1.13.10 4.2.7.2.[id number] [facility] 2022-10-08 00:00:00 2022-10-08 00:00:00 Orders Only Doctor Unassigned, [place] [facility] 1.2.840.114 350.1.13.10 4.2.7.2.[id number] [facility] 2022-08-20 08:42:00 2022-08-20 12:19:00 Emergency X Trevor TAYLOR [facility] ERT [id number] [facility] 2022-08-20 08:42:00 2022-08-20 12:19:00 Emergency Trevor Taylor [facility] 1.2840.114 350.1.13.10 4.2.7.2.[id number] [facility] 2022-07-11 00:00:00 2022-07-11 00:00:00 OFFICE VISIT NEW PT LEVEL 3 STLMLC STLMLC [id number] [facility] 2022-07-09 10:07:22 2022-07-09 10:07:22 Outpatient [facility] [id number] 1026 Dewey Tripathi Kris 2022-07-09 00:00:00 2022-07-09 00:00:00 Outpatient Visit [id number] 2022-06-09 06:57:00 2022-06-09 10:27:00 Emergency SOHAM BOLANOS [facility] ERT [id number] [facility] 2022-06-09 06:57:00 2022-06-09 10:27:00 Emergency Soham Clarke [facility] 1.2.840.114 350.1.13.10 4.2.7.2.[id number] [facility] 2022-06-09 00:00:00 2022-06-09 00:00:00 Orders Only Doctor Unassigned, [place] [facility] 1.2.840.114 350.1.13.10 4.2.7.2.[id number] [facility] 2021-11-04 00:00:00 2021-11-04 00:00:00 Transition of Care Carly Ellen REN 1.2.840.114 350.1.13.10 4.2.7.2.[id number] [facility] 2021-10-30 13:39:00 2021-11-01 13:45:00 Inpatient X EMELIA GALLEGO [facility] [id number] [facility] 2021-10-30 13:39:00 2021-11-01 13:45:00 Hospital Encounter Madison Sepulveda David [facility] 1.2.840.114 350.1.13.10 4.2.7.2.[id number] [facility] 2021-10-30 00:00:00 2021-10-30 00:00:00 Orders Only Doctor Unassigned, [place] [facility] 1.2.840.114 350.1.13.10 4.2.7.2.[id number] [facility] 2021-05-23 20:42:00 2021-05-24 01:42:00 Emergency Felipe Ortega [facility] 1.2.840.114 350.1.13.10 4.2.7.2.[id number] [facility] 2021-05-23 20:42:00 2021-05-23 20:42:00 Emergency X FELIPE ORTEGA [facility] ERT [id number] [facility] 2021-05-22 18:37:00 2021-05-22 21:40:00 Emergency Gabriella Zarate [facility] 1.2.840.114 350.1.13.10 4.2.7.2.[id number] [facility] 2021-05-22 18:31:00 2021-05-22 18:31:00 Emergency X [facility] ERT [id number] [facility] 2021-05-07 11:11:35 2021-05-07 11:11:42 Imm/Inj Visit Nurse, Malika Mallory Immunizatio David Godinez [facility] 1.2840.114 350.1.13.10 4.2.7.2.[id number] [facility] 2021-05-01 19:09:00 2021-05-01 20:46:00 [facility] 1.2840.114 350.1.13.10 4.2.7.2.[id number] [facility] 2021-05-01 18:53:00 2021-05-01 18:53:00 Emergency X [facility] ERT [id number] [facility] 2021-04-01 20:06:00 2021-04-01 21:56:00 Emergency Hortencia Blantonanne [facility] 1.2840.114 350.1.13.10 4.2.7.2.686 [id number] 084 [id number] 2021-04-01 20:06:00 2021-04-01 21:56:00 Emergency Blanton, [facility] 1.2.840.114 350.1.13.10 4.2.7.2.[id number] [facility] 2021-04-01 20:06:00 2021-04-01 20:06:00 Emergency X NIKHIL BLANTON [facility] ERT [id number] [facility] 2021-03-17 20:09:00 2021-03-17 22:19:00 Emergency Nikhil Blanton [facility] 1.2.840.114 350.1.13.10 4.2.7.2.686 [id number] [id number] 2021-03-17 20:09:00 2021-03-17 22:19:00 Emergency BlantonNikhil ambrocio [facility] 1.2.840.114 350.1.13.10 4.2.7.2.[id number] [facility] 2021-03-17 19:56:00 2021-03-17 19:56:00 Emergency X [facility] ERT [id number] [facility] 2020-11-15 00:00:00 2020-11-15 00:00:00 Telephone Pcp, Patient Does Not Have A [facility] 1.2.840.114 350.1.13.10 4.2.7.2.686 [id number] 2020-11-15 00:00:00 2020-11-15 00:00:00 Letter (Out) IsabelaMirna perez [facility] 1.2.840.114 350.1.13.10 4.2.7.2.686 [id number] 2020-11-15 00:00:00 2020-11-15 00:00:00 Letter (Out) Mirna Mar [facility] 1.2.840.114 350.1.13.10 4.2.7.2.[id number] [facility] 2020-11-15 00:00:00 2020-11-15 00:00:00 Telephone Pcp, Patient Does Not Have A [facility] 1.2.840.114 350.1.13.10 4.2.7.2.[id number] [facility] 2020-11-14 21:29:00 2020-11-14 22:55:00 Emergency Darnell Hsu [facility] 1.2.840.114 350.1.13.10 4.2.7.2.686 [id number] [id number] 2020-11-14 21:29:00 2020-11-14 22:55:00 Emergency Darnell Hsu [facility] 1.2.840.114 350.1.13.10 4.2.7.2.[id number] [facility] 2020-11-14 21:29:00 2020-11-14 22:55:00 Emergency X DARNELL HSU [facility] ERT [id number] [facility] 2020-09-30 08:03:00 2020-09-30 10:45:00 Emergency Jessy Siddiqui [facility] 1.2.840.114 350.1.13.10 4.2.7.2.686 [id number] [id number] 2020-09-30 08:03:00 2020-09-30 10:45:00 Emergency Jessy Siddiqui [facility] 1.2.840.114 350.1.13.10 4.2.7.2.[id number] [facility] 2020-09-30 07:58:00 2020-09-30 07:58:00 Emergency X [facility] ERT [id number] [facility] 2020-09-30 00:00:00 2020-09-30 00:00:00 Orders Only Doctor Unassigned, [place] [facility] 1.2.840.114 350.1.13.10 4.2.7.2.686 [id number] 2020-09-30 00:00:00 2020-09-30 00:00:00 Orders Only Doctor Unassigned, [place] [facility] 1.2.840.114 350.1.13.10 4.2.7.2.[id number] [facility] 2020-07-01 21:58:00 2020-07-01 23:54:00 Emergency Felipe Ortega [facility] 1.2.840.114 350.1.13.10 4.2.7.2.686 [id number] 084 [id number] 2020-07-01 21:58:00 2020-07-01 23:54:00 Emergency Felipe Ortega [facility] 1.2.840.114 350.1.13.10 4.2.7.2.[id number] [facility] 2020-07-01 21:58:00 2020-07-01 21:58:00 Emergency X FELIPE ORTEGA [facility] ERT [id number] [facility] Results Test Description Test Time Test Comments Results Result Comments Source US Gall bladder 01:45:45 EXAM: US GALL BLADDER HISTORY: 54 years-old Male; Provided indication: RUQ abd pain, r/o acutecholecystitis . TECHNIQUE: Limited abdominal ultrasound focused on the gallbladder wasperformed. The main portal vein was evaluated with color Doppler.Rn Triage images were obtained for the record. COMPARISON: CT abdomen pelvis on 04/02/2024 FINDINGS: PANCREAS:The pancreas is unable to be visualized due to shadowing from bowel gas. LIVER:Visualized Parenchyma: The liver parenchyma exhibits normal hepaticechogenicity and echotexture. Portal vein: Hepatopetal flow is present in the main portal vein. BILE DUCTS:No intra- or extrahepatic biliary dilatation is visualized.The common duct diameter is normal and measures 0.6 cm. GALLBLADDER:No shadowing stones are seen. The gallbladder is physiologically distended. The gallbladder wall thickness is normal and measures 0.2 cm. Nopericholecystic fluid is visualized.Gomez's sign could not be accurately assessed due to pain medication. OTHER: [facility]. [facility] [id number] 23:38:46* Test Item Value Reference Range Interpretation Comme nts TROPONIN I (test code = 8099180444) 0.004 ng/mL <=0.034 KRYSTLE (test code = [...] of biotin. Lab Interpretation (test code = 43182-8) [facility] 2 [id number] 23:34:49Exam: Chest (2 Views), 06/07/2024 5:00 PM. Ordering Physician: LUKE CLARKE. History: sob . Technique: Two views of the chest. Comparison: Chest radiograph 07/11/2023. Findings: No focal consolidation. No pneumothorax or effusion. Normal size of thecardiac silhouette. No acute osseous finding.[facility][id number] 23:30:44* Test Item Value Reference Range Interpretation Comments D-DIMER (test code = 4591893633) 0.22 See_Comment [Automated message] The system which [...] a diagnosis. Lab Interpretation (test code = 30213-5) Normal [facility]OLIC PANEL (07646)2024-06-07 23:28:22* Test Item Value Reference Range Interpretation Comme nts NA (test code = 8967570976) 136 mmol/L 135-145 K (test code = 4973616280) 4.1 mmol/L 3.5-5.0 CL (test code = 0499982350) 103 mmol/L 98-108 CO2 TOTAL (test code = 5684832018) 25 mmol/L 23-31 AGAP (test code = 9843087434) 8 2-16 BUN (test code = 9422801233) 19 mg/dL 7-23 GLUCOSE (test code = 2395083626) 89 mg/dL 70-110 CREATININE (test code = 2160-0) 0.99 mg/dL 0.60-1.25 TOTAL BILI (test code = 3408287454) 1.1 mg/dL 0.1-1.1 CALCIUM (test code = 9037271202) 9.3 mg/dL 8.6-10.6 T PROTEIN (test code = 0711118710) 8.8 g/dL 6.3-8.2 H ALBUMIN (test code = 1413938791) 4.8 g/dL 3.5-5.0 ALK PHOS (test code = 1563164328) 51 U/L 34-122 ALTv (test code = 1742-6) 27 U/L 5-50 AST(SGOT) (test code = 8321710150) 35 U/L 13-40 eGFR (test code = 58272-5) 92.2 mL/min/1.73m2 CKD-EPI eGFR (2020). Assuming creatinine has been stable day-to-day for at least three months, the eGFR indicates Category G1 (>= 90 mL/min/1.73 m2) Lab Interpretation (test code = 30461-0) Abnormal [facility] Hospital[facility]esium2024-09-24 23:28:02* Test Item Value Reference Range Interpretation Comme nts MAGNESIUM (test code = 9132935833) 1.8 mg/dL 1.7-2.4 Lab Interpretation (test cod e = 54593-2) Normal [facility] HospitalLIPASE2024-09-24 23:28:02* Test Item Value Reference Range Interpretation Comme nts LIPASE (test code = 5889874352) 67 U/L 0-220 Lab Interpretation (test cod e = 46238-4) Normal [facility] HospitalCreatine Vyzuvm5386-30-21 23:27:41* Test Item Value Reference Range Interpretation Comme nts CK (test code = 0087300268) 475 U/L 33-194 H Lab Interpretation (test cod e = 55396-6) Abnormal [facility] HospitalCBC WITH [id number] 23:13:43* Test Item Value Reference Range Interpretation [...] 34.2 g/dL 31.2-35.0 RDW-SD (test code = 43272-1) 42.2 fL 38.5-51.6 RDW-CV (test code = 788-0) 13.0 % 12.1-15.4 PLT (test code = 777-3) 219 150-328 MPV (test code = 74138-2) 9.9 fL 9.8-13.0 NRBC/100 WBC (test code = 1841925078) 0.0 0.0-10.0 NRBC x10^3 (test code = 4010490758) See_Comment [Automated messa ge] The system which generated this result transmitted reference range: 10*3/?L. The reference range was not used to interpret this result as normal/abnormal. GRAN MAT (NEUT) % (test code = 770-8) 77.8 % IMM GRAN % (test code = 9045373144) 0.30 % LYMPH % (test code = 736-9) 15.6 % MONO % (test code = 5905-5) 5.7 % EOS % (test code = 713-8) 0.5 % BASO % (test code = 706-2) 0.1 % GRAN MAT x10^3(ANC) (test code = 6568557790) 5.87 10*3/uL 1.99-6.95 IMM GRAN x10^3 (test code = 0091172581) 0.00-0.06 LYMPH x10^3 (test code = 731-0) 1.18 10*3/uL 1.09-3.23 MONO x10^3 (test code = 742-7) 0.43 10*3/uL 0.36-1.02 EOS x10^3 (test code = 711-2) 0.04 10*3/uL 0.06-0.53 L BASO x10^3 (test code = 704-7) 0.01-0.09 Lab Interpretation (test code = 59977-0) Abnormal [facility] HospitalTroponin [id number] 15:49:54* Test Item Value Reference Range Interpretation Comme nts TROPONIN I (test code = 4914069086) <=0.034 KRYSTLE (test code = KRYSTLE) Reference [...] of biotin. Lab Interpretation (test code = 83115-7) Normal [facility] HospitalCT ABDOMEN PELVIS W [id number] 15:06:25CT ABDOMEN PELVIS W CONTRAST HISTORY: 53 [...] hernia is seen. Degenerative changes atL5-S1 level noted.[facility]. Metabolic Panel (76178)2024-04-02 14:58:53* Test Item Value Reference Range Interpretation Comme nts NA (test code = 6456417293) 138 mmol/L 135-145 K (test code = 5221287420) 4.6 mmol/L 3.5-5.0 CL (test code = 5290631821) 105 mmol/L 98-108 CO2 TOTAL (test code = 7569471423) 28 mmol/L 23-31 AGAP (test code = 7516381988) 5 2-16 BUN (test code = 6636784990) 19 mg/dL 7-23 GLUCOSE (test code = 1042222639) 117 mg/dL 70-110 H CREATININE (test code = 2160-0) 0.91 mg/dL 0.60-1.25 TOTAL BILI (test code = 7140290626) 0.8 mg/dL 0.1-1.1 CALCIUM (test code = 9622235922) 9.2 mg/dL 8.6-10.6 T PROTEIN (test code = 7123657336) 8.4 g/dL 6.3-8.2 H ALBUMIN (test code = 6174928355) 4.4 g/dL 3.5-5.0 ALK PHOS (test code = 8284917808) 58 U/L 34-122 ALTv (test code = 1742-6) 28 U/L 5-50 AST(SGOT) (test code = 9131262286) 33 U/L 13-40 eGFR (test code = 40220-6) 102.0 mL/min/1.73m2 CKD-EPI eGFR (2020). Assuming creatinine has been stable day-to-day for at least three months, the eGFR indicates Category G1 (>= 90 mL/min/1.73 m2) Lab Interpretation (test code = 59725-3) Abnormal [facility] HospitalLipid Panel (51182)(Total Cholesterol, Triglycerides, HDL)2024-04-02 14:58:53* Test Item Value Reference Range Interpretation Comme nts CHOL (test code = 4827510148) 190 mg/dL 120-200 HDL (test code = 2504843464) 37 mg/dL >=40 L HDLC RATIO (test code = 0115092505) 5.1 <=5.0 H TRIG (test code = 2705647279) 107 mg/dL 30-170 LDL CHOL (test code = 27030-8) 132 mg/dL <=160 VLDL (test code = 9468488760) 21 mg/dL 5-60 Lab Interpretation (test cod e = 25609-4) Abnormal [facility] Hospital[facility]esium2024-07-20 14:58:32* Test Item Value Reference Range Interpretation Comme nts MAGNESIUM (test code = 6765802014) 1.9 mg/dL 1.7-2.4 Lab Interpretation (test cod e = 79940-4) Normal [facility] HospitalLipase2024-07-20 14:58:12* Test Item Value Reference Range Interpretation Comme nts LIPASE (test code = 7662563630) 384 U/L 0-220 H Lab Interpretation (test cod e = 59382-5) Abnormal [facility] HospitalCb with [id number] 14:40:51* Test Item Value Reference Range Interpretation [...] 35.0 g/dL 31.2-35.0 RDW-SD (test code = 53139-9) 41.7 fL 38.5-51.6 RDW-CV (test code = 788-0) 13.3 % 12.1-15.4 PLT (test code = 777-3) 216 150-328 MPV (test code = 16415-4) 9.9 fL 9.8-13.0 NRBC/100 WBC (test code = 3406520732) 0.0 0.0-10.0 NRBC x10^3 (test code = 8649674452) See_Comment [Automated me ssage] The system which generated this result transmitted reference range: 10*3/?L. The reference range was not used to interpret this result as normal/abnormal. GRAN MAT (NEUT) % (test code = 770-8) 44.1 % IMM GRAN % (test code = 8646160451) 0.40 % LYMPH % (test code = 736-9) 45.4 % MONO % (test code = 5905-5) 8.4 % EOS % (test code = 713-8) 1.1 % BASO % (test code = 706-2) 0.6 % GRAN MAT x10^3(ANC) (test code = 2197318848) 2.31 10*3/uL 1.99-6.95 IMM GRAN x10^3 (test code = 0590207996) 0.00-0.06 LYMPH x10^3 (test code = 731-0) 2.38 10*3/uL 1.09-3.23 MONO x10^3 (test code = 742-7) 0.44 10*3/uL 0.36-1.02 EOS x10^3 (test code = 711-2) 0.06 10*3/uL 0.06-0.53 BASO x10^3 (test code = 704-7) 0.03 10*3/uL 0.01-0.09 [facility]OL[facility] PAN[facility] (77147)2024-02-21 03:54:20* Test Item Value Reference Range Interpretation Comme nts NA (test code = 1980589936) 137 mmol/L 135-145 K (test code = 2381946002) 3.9 mmol/L 3.5-5.0 CL (test code = 9515664746) 106 mmol/L 98-108 CO2 TOTAL (test code = 5717360756) 26 mmol/L 23-31 AGAP (test code = 4966727899) 5 2-16 BUN (test code = 9910238999) 14 mg/dL 7-23 GLUCOSE (test code = 5335844106) 128 mg/dL 70-110 H CREATININE (test code = 2160-0) 0.98 mg/dL 0.60-1.25 TOTAL BILI (test code = 9397159176) 0.5 mg/dL 0.1-1.1 CALCIUM (test code = 3389163036) 8.6 mg/dL 8.6-10.6 T PROTEIN (test code = 0770680647) 7.4 g/dL 6.3-8.2 ALBUMIN (test code = 5517997918) 4.1 g/dL 3.5-5.0 ALK PHOS (test code = 5765489141) 66 U/L 34-122 ALTv (test code = 1742-6) 25 U/L 5-50 AST(SGOT) (test code = 3158965772) 39 U/L 13-40 eGFR (test code = 27067-9) 93.4 mL/min/1.73m2 CKD-EPI eGFR (2020). Assuming creatinine has been stable day-to-day for at least three months, the eGFR indicates Category G1 (>= 90 mL/min/1.73 m2) Lab Interpretation (test code = 19946-9) Abnormal [facility]2024-06-09 03:53:40* Test Item Value Reference Range Interpretation Comme nts LIPASE (test code = 1852140287) 117 U/L 0-220 Lab Interpretation (test cod e = 25503-8) Normal [facility] WITH [id number] 03:39:58* Test Item Value Reference Range Interpretation [...] 34.8 g/dL 31.2-35.0 RDW-SD (test code = 15801-7) 40.3 fL 38.5-51.6 RDW-CV (test code = 788-0) 12.7 % 12.1-15.4 PLT (test code = 777-3) 216 150-328 MPV (test code = 44497-7) 9.6 fL 9.8-13.0 L NRBC/100 WBC (test code = 7957792904) 0.0 0.0-10.0 NRBC x10^3 (test code = 5511728838) See_Comment [Automated messa ge] The system which generated this result transmitted reference range: 10*3/?L. The reference range was not used to interpret this result as normal/abnormal. GRAN MAT (NEUT) % (test code = 770-8) 32.8 % IMM GRAN % (test code = 0331043386) 0.20 % LYMPH % (test code = 736-9) 58.5 % MONO % (test code = 5905-5) 6.6 % EOS % (test code = 713-8) 1.4 % BASO % (test code = 706-2) 0.5 % GRAN MAT x10^3(ANC) (test code = 4074671916) 1.94 10*3/uL 1.99-6.95 L IMM GRAN x10^3 (test code = 5832772548) 0.00-0.06 LYMPH x10^3 (test code = 731-0) 3.46 10*3/uL 1.09-3.23 H MONO x10^3 (test code = 742-7) 0.39 10*3/uL 0.36-1.02 EOS x10^3 (test code = 711-2) 0.08 10*3/uL 0.06-0.53 BASO x10^3 (test code = 704-7) 0.03 10*3/uL 0.01-0.09 Lab Interpretation (test code = 93822-8) Abnormal [facility] with [id number] 03:17:11* Test Item Value Reference Range Interpretation [...] 34.8 g/dL 31.2-35.0 RDW-SD (test code = 87080-9) 39.9 fL 38.5-51.6 RDW-CV (test code = 788-0) 12.7 % 12.1-15.4 PLT (test code = 777-3) 240 150-328 MPV (test code = 69358-2) 9.8 fL 9.8-13.0 NRBC/100 WBC (test code = 3328910369) 0.0 0.0-10.0 NRBC x10^3 (test code = 1851151772) See_Comment [Automated messa ge] The system which generated this result transmitted reference range: 10*3/?L. The reference range was not used to interpret this result as normal/abnormal. GRAN MAT (NEUT) % (test code = 770-8) 31.3 % IMM GRAN % (test code = 6832054537) 0.00 % LYMPH % (test code = 736-9) 57.3 % MONO % (test code = 5905-5) 9.3 % EOS % (test code = 713-8) 1.6 % BASO % (test code = 706-2) 0.5 % GRAN MAT x10^3(ANC) (test code = 1273544167) 1.94 10*3/uL 1.99-6.95 L IMM GRAN x10^3 (test code = 7516991013) 0.00-0.06 LYMPH x10^3 (test code = 731-0) 3.56 10*3/uL 1.09-3.23 H MONO x10^3 (test code = 742-7) 0.58 10*3/uL 0.36-1.02 EOS x10^3 (test code = 711-2) 0.10 10*3/uL 0.06-0.53 BASO x10^3 (test code = 704-7) 0.03 10*3/uL 0.01-0.09 Lab Interpretation (test code = 90944-4) [facility]51462[facility]2023-12-10 03:13:49* Test Item Value Reference Range Interpretation Comme nts NA (test code = 5972582590) 141 mmol/L 135-145 K (test code = 9923959344) 4.3 mmol/L 3.5-5.0 CL (test code = 0095793713) 107 mmol/L 98-108 CO2 TOTAL (test code = 2325620661) 26 mmol/L 23-31 AGAP (test code = 7864457307) 8 2-16 BUN (test code = 2342524980) 20 mg/dL 7-23 GLUCOSE (test code = 6163624764) 123 mg/dL 70-110 H CREATININE (test code = 2160-0) 0.95 mg/dL 0.60-1.25 TOTAL BILI (test code = 5588845852) 0.8 mg/dL 0.1-1.1 CALCIUM (test code = 1787467500) 9.0 mg/dL 8.6-10.6 T PROTEIN (test code = 0324203365) 8.4 g/dL 6.3-8.2 H ALBUMIN (test code = 8217768723) 4.3 g/dL 3.5-5.0 ALK PHOS (test code = 3179312456) 58 U/L 34-122 ALTv (test code = 1742-6) 33 U/L 5-50 AST(SGOT) (test code = 6237578028) 52 U/L 13-40 H eGFR (test code = 01080-8) 96.9 mL/min/1.73m2 CKD-EPI eGFR (2020). Assuming creatinine has been stable day-to-day for at least three months, the eGFR indicates Category G1 (>= 90 mL/min/1.73 m2) Lab Interpretation (test code = 67033-4) [facility] [id number] 03:12:08CT ABDOMEN PELVIS W CONTRAST HISTORY: 53 [...] TISSUES: No suspicious lytic or sclerotic bony lesions.[facility] BASIC METABOLIC PANEL (NA, K, CL, CO2, GLUCOSE, BUN, CREATININE, CA)2023-08-04 03:27:21* Test Item Value Reference Range Interpretation Comme nts NA (test code = 7629197728) 140 mmol/L 135-145 K (test code = 9093008250) 3.9 mmol/L 3.5-5.0 CL (test code = 9963578222) 104 mmol/L 98-108 CO2 TOTAL (test code = 0155492053) 28 mmol/L 23-31 AGAP (test code = 7723649337) 8 2-16 BUN (test code = 8690846265) 15 mg/dL 7-23 GLUCOSE (test code = 9491873220) 155 mg/dL 70-110 H CREATININE (test code = 6210320905) 1.37 mg/dL 0.60-1.25 H CALCIUM (test code = 9871239063) 9.5 mg/dL 8.6-10.6 eGFR (test code = 50440-6) 62.8 mL/min/1.73m2 CKD-EPI eGFR (2020). Assuming creatinine has been stable day-to-day for at least three months, the eGFR indicates Category G2 (60 - 89 mL/min/1.73 m2) Lab Interpretation (test code = 20880-6) Abnormal [facility] WITH [id number] 03:12:39* Test Item Value Reference Range Interpretation Comme nts WBC (test code = 6690-2) 6.98 See_Comment [Automated [employer]] The system which generated this result transmitted reference range: 4.20 - 10.70 10*3/?L. The reference range was not used to interpret this result as normal/abnormal. RBC (test code = 789-8) 5.27 See_Comment [Automated [facility]] The system which generated this result transmitted [...] g/dL 31.2-35.0 H RDW-SD (test code = 31006-8) 38.1 fL 38.5-51.6 L RDW-CV (test code = 788-0) 12.3 % 12.1-15.4 PLT (test code = 777-3) 238 See_Comment [Automated messa ge] The system which generated this result transmitted reference range: 150 - 328 10*3/?L. The reference range was not used to interpret this result as normal/abnormal. MPV (test code = 81539-0) 9.8 fL 9.8-13.0 NRBC/100 WBC (test code = 4323023229) 0.0 See_Comment [Automated [employer]] The system which generated this result transmitted reference range: 0.0 - 10.0 /100 WBCs. The reference range was not used to interpret this result as normal/abnormal. NRBC x10^3 (test code = 4917973240) See_Comment [Automated messa ge] The system which generated this result transmitted reference range: 10*3/?L. The reference range was not used to interpret this result as normal/abnormal. GRAN MAT (NEUT) % (test code = 770-8) 37.8 % IMM GRAN % (test code = 5959208072) 0.30 % LYMPH % (test code = 736-9) 52.7 % MONO % (test code = 5905-5) 7.7 % EOS % (test code = 713-8) 1.1 % BASO % (test code = 706-2) 0.4 % GRAN MAT x10^3(ANC) (test code = 7864646524) 2.63 10*3/uL 1.99-6.95 IMM GRAN x10^3 (test code = 1222970355) 0.00-0.06 LYMPH x10^3 (test code = 731-0) 3.68 10*3/uL 1.09-3.23 H MONO x10^3 (test code = 742-7) 0.54 10*3/uL 0.36-1.02 EOS x10^3 (test code = 711-2) 0.08 10*3/uL 0.06-0.53 BASO x10^3 (test code = 704-7) 0.03 10*3/uL 0.01-0.09 Lab Interpretation (test code = 81983-7) [facility] [id number] 17:24:34* Test Item Value Reference Range Interpretation Comme nts TROPONIN I (test code = 7696168580) 0.018 ng/mL <=0.034 KRYSTLE (test code = [...] of biotin. Lab Interpretation (test code = 96970-4) Normal [facility]2023-[facility]-11 17:13:15* Test Item Value Reference Range Interpretation Comme nts MAGNESIUM (test code = 6823140570) 1.9 mg/dL 1.7-2.4 Lab Interpretation (test cod e = 89823-3) Normal [facility] METABOLIC PANEL (57446)2023-07-25 17:12:55* Test Item Value Reference Range Interpretation Comme nts NA (test code = 2546133202) 141 mmol/L 135-145 K (test code = 4391796732) 3.8 mmol/L 3.5-5.0 CL (test code = 1584915234) 106 mmol/L 98-108 CO2 TOTAL (test code = 0746295825) 27 mmol/L 23-31 AGAP (test code = 6852772152) 8 2-16 BUN (test code = 5851467767) 14 mg/dL 7-23 GLUCOSE (test code = 2456730795) 124 mg/dL 70-110 H CREATININE (test code = 2005189753) 0.93 mg/dL 0.60-1.25 TOTAL BILI (test code = 8956594405) 0.8 mg/dL 0.1-1.1 CALCIUM (test code = 2475530217) 9.3 mg/dL 8.6-10.6 T PROTEIN (test code = 1174960367) 8.2 g/dL 6.3-8.2 ALBUMIN (test code = 7279039240) 4.4 g/dL 3.5-5.0 ALK PHOS (test code = 9136456962) 49 U/L 34-122 ALTv (test code = 1742-6) 20 U/L 5-50 AST(SGOT) (test code = 0849516627) 28 U/L 13-40 eGFR (test code = 76965-2) 100.0 mL/min/1.73m2 CKD-EPI eGFR (2020). Assuming creatinine has been stable day-to-day for at least three months, the eGFR indicates Category G1 (>= 90 mL/min/1.73 m2) Lab Interpretation (test code = 54260-6) [facility]normal [facility]2023-[facility]-11 17:12:35* Test Item Value Reference Range Interpretation Comme nts LIPASE (test code = 8189373857) 109 U/L 0-220 Lab Interpretation (test cod e = 88096-1) Normal [facility] Hospital[facility] WITH [id number] 16:59:59* Test Item Value Reference Range Interpretation Comme nts WBC (test code = 6690-2) 5.17 See_Comment [Automated [employer]] The system which generated this result transmitted reference range: 4.20 - 10.70 10*3/?L. The reference range was not used to interpret this result as normal/abnormal. RBC (test code = 789-8) 5.04 See_Comment [Automated [employer]] The system which generated this result transmitted [...] g/dL 31.2-35.0 H RDW-SD (test code = 28623-1) 39.2 fL 38.5-51.6 RDW-CV (test code = 788-0) 12.5 % 12.1-15.4 PLT (test code = 777-3) 207 See_Comment [Automated [employer]] The system which generated this result transmitted reference range: 150 - 328 10*3/?L. The reference range was not used to interpret this result as normal/abnormal. MPV (test code = 05715-2) 10.0 fL 9.8-13.0 NRBC/100 WBC (test code = 1197890207) 0.0 See_Comment [Automated [employer]] The system which generated this result transmitted reference range: 0.0 - 10.0 /100 WBCs. The reference range was not used to interpret this result as normal/abnormal. NRBC x10^3 (test code = 3470917600) See_Comment [Automated [employer]] The system which generated this result transmitted reference range: 10*3/?L. The reference range was not used to interpret this result as normal/abnormal. GRAN MAT (NEUT) % (test code = 770-8) 45.8 % IMM GRAN % (test code = 5438112846) 0.20 % LYMPH % (test code = 736-9) 42.9 % MONO % (test code = 5905-5) 9.9 % EOS % (test code = 713-8) 0.8 % BASO % (test code = 706-2) 0.4 % GRAN MAT x10^3(ANC) (test code = 9796605381) 2.37 10*3/uL 1.99-6.95 IMM GRAN x10^3 (test code = 7446818858) 0.00-0.06 LYMPH x10^3 (test code = 731-0) 2.22 10*3/uL 1.09-3.23 MONO x10^3 (test code = 742-7) 0.51 10*3/uL 0.36-1.02 EOS x10^3 (test code = 711-2) 0.04 10*3/uL 0.06-0.53 L BASO x10^3 (test code = 704-7) 0.01-0.09 Lab Interpretation (test code = 93745-9) Abnormal [facility] HospitalLIPID PANEL (28414)(TOTAL CHOLESTEROL, TRIGLYCERIDES, HDL)2023-07-24 21:48:18* Test Item Value Reference Range Interpretation Comme nts CHOL (test code = 0421501182) 220 mg/dL 120-200 H HDL (test code = 5246578941) 31 mg/dL >=40 L HDLC RATIO (test code = 6946966445) 7.1 <=5.0 H TRIG (test code = 0109253658) 134 mg/dL 30-170 LDL CHOL (test code = 37848-2) 162 mg/dL <=160 H VLDL (test code = 1680413831) 27 mg/dL 5-60 Lab Interpretation (test cod e = 10036-2) Abnormal [facility] HospitalComplete Metabolic Iwqsl8632-85-88 20:48:07* Test Item Value Reference Range Interpretation Comme nts NA (test code = 2208272694) 141 mmol/L 135-145 K (test code = 5487969887) 3.8 mmol/L 3.5-5.0 CL (test code = 0595748758) 103 mmol/L 98-108 CO2 TOTAL (test code = 7413626224) 29 mmol/L 23-31 AGAP (test code = 7171017411) 9 2-16 BUN (test code = 6382004943) 14 mg/dL 7-23 GLUCOSE (test code = 1524334018) 102 mg/dL 70-110 CREATININE (test code = 6780045932) 0.85 mg/dL 0.60-1.25 TOTAL BILI (test code = 2931861084) 1.2 mg/dL 0.1-1.1 H CALCIUM (test code = 0589432593) 10.0 mg/dL 8.6-10.6 T PROTEIN (test code = 0106586252) 8.9 g/dL 6.3-8.2 H ALBUMIN (test code = 5510092110) 5.0 g/dL 3.5-5.0 ALK PHOS (test code = 2444091291) 52 U/L 34-122 ALTv (test code = 1742-6) 22 U/L 5-50 AST(SGOT) (test code = 1962496066) 45 U/L 13-40 H eGFR (test code = 58472-3) 105.9 mL/min/1.73m2 CKD-EPI eGFR (2020). Assuming creatinine has been stable day-to-day for at least three months, the eGFR indicates Category G1 (>= 90 mL/min/1.73 m2) Lab Interpretation (test code = 02733-2) Abnormal [facility] HospitalLipase, Ddlzr8622-08-46 20:48:07* Test Item Value Reference Range Interpretation Comme nts LIPASE (test code = 2686074202) 134 U/L 0-220 Lab Interpretation (test cod e = 96214-2) Normal [facility] with Xgznvvuxilgn6758-58-98 20:20:02* Test Item Value Reference Range Interpretation Comme nts WBC (test code = 6690-2) 6.91 See_Comment [Automated [facility]] The system which generated this result transmitted reference range: 4.20 - 10.70 10*3/?L. The reference range was not used to interpret this result as normal/abnormal. RBC (test code = 789-8) 5.49 See_Comment [Automated [employer]] The system which generated this result transmitted [...] 34.7 g/dL 31.2-35.0 RDW-SD (test code = 15690-4) 40.0 fL 38.5-51.6 RDW-CV (test code = 788-0) 12.7 % 12.1-15.4 PLT (test code = 777-3) 228 See_Comment [Automated messa ge] The system which generated this result transmitted reference range: 150 - 328 10*3/?L. The reference range was not used to interpret this result as normal/abnormal. MPV (test code = 17622-5) 9.5 fL 9.8-13.0 L NRBC/100 WBC (test code = 1342842006) 0.0 See_Comment [Automated me ssage] The system which generated this result transmitted reference range: 0.0 - 10.0 /100 WBCs. The reference range was not used to interpret this result as normal/abnormal. NRBC x10^3 (test code = 4468210479) See_Comment [Automated messa ge] The system which generated this result transmitted reference range: 10*3/?L. The reference range was not used to interpret this result as normal/abnormal. GRAN MAT (NEUT) % (test code = 770-8) 46.9 % IMM GRAN % (test code = 5573218473) 0.30 % LYMPH % (test code = 736-9) 42.3 % MONO % (test code = 5905-5) 9.8 % EOS % (test code = 713-8) 0.4 % BASO % (test code = 706-2) 0.3 % GRAN MAT x10^3(ANC) (test code = 3574256657) 3.24 10*3/uL 1.99-6.95 IMM GRAN x10^3 (test code = 2326767531) 0.00-0.06 LYMPH x10^3 (test code = 731-0) 2.92 10*3/uL 1.09-3.23 MONO x10^3 (test code = 742-7) 0.68 10*3/uL 0.36-1.02 EOS x10^3 (test code = 711-2) 0.03 10*3/uL 0.06-0.53 L BASO x10^3 (test code = 704-7) 0.01-0.09 Lab Interpretation (test code = 93065-1) [facility] W/HKAE5504-06-09 08:28:00 [facility] 1970 Sex: M Patient Name: NOAH PUTNAM Unit No: [id number] EXAMS: CPT CODE: [id number] CT ABD PELVIS W/CONT 77025 EXAM: - CT ABD PELVIS W/CONT INDICATION: pancreatitis Location code:C3 TECHNIQUE: No oral contrast was given Axial CT images of the abdomen and pelvis were obtained after the use of intravenous contrast. No delayed phase images were obtained. Reconstructions - coronal and sagittal planes Automated ex posure reduction (Auto mA/Smart mA) was utilized in [...] present. Gastrointestinal: No bowel obstruction or perienteric i nflammation. The appendix is normal. Vascular: No evidence of aneurysm or dissection. Lymphatics: No enlarged lymph nodes by CT size criteria. Bones/Soft Tissues: No acute osseous findings. No ventral hernias. Peritoneum/Other: No extraluminal fluid. IMPRESSION: 1. No acute abnormality. [facility] NAME: NOAH PUTNAM [address] PHYS: [address] [place] [address] : 1970 AGE: 52 SEX: M LOC: Z.ERS PHONE #: [phone] EXAM DATE: 07/23/2023 STATUS: REG ER FAX #: [phone] RAD #: D/C DT PAGE 1 Signed Report (CONTINUED) Patient Name: NOAH PUTNAM Unit No: [id number] EXAMS: CPT CODE: [id number] CT ABD PELVIS W/CONT 79668 (Continued) at 0828 Reported and signed by: Kiara Meza MD CC: Jessie Paul MD Technologist: Jovanni GREEN CTDI: DLP: Trnscrpt: 07/23/2023 (08) ValerioCB5 [facility] NAME: NOAH PUTNAM [address] [place] [address] PHYS: [place] [address] : 1970 AGE: 52 SEX: M LOC: Flyr PHONE #: [phone] EXAM DATE: 07/23/2023 STATUS: REG ER FAX #: [phone] RAD #: D/C DT PAGE 2 Signed Report Patient Name: NOAH PUTNAM Unit No: [id number] EXAMS: CPT CODE: [id number] CT ABD PELVISW/CONT 65294 (Continued) Orig Print D/T: S: 07/23/2023 (0831) [facility] NAME: NOAH PUTNAM [address] [place] [address] PHYS: [place] [address] : 1970 AGE: 52 SEX: M LOC: Flyr PHONE #: [phone] EXAM DATE: 07/23/2023 STATUS: REG ER FAX #: [phone] RAD #: D/C DT PAGE 3 Signed ReportURINALYSIS [id number] 06:32:00* Test Item Value Reference Range Interpretation [...] /mm3 NEGATIVE SOURCE OF URINE: CLEAN CATCHUA QKSFENBTLJJ2541-93-30 06:32:00* Test Item Value Reference Range Interpretation Comme nts UA RBC (test code = RBCU) 3-5 RBC/HPF 0-3 A UA WBC (test code = XWBCU) 0-3 WBC/HPF 0-5 UA EPITHELIAL CELLS (test co de = EPIU) RARE EPI/HPF FEW UA BACTERIA (test code = XBACU) FEW NONE UA MUCUS (test code = MUCU) MODERATE #/LPF NONE A SOURCE OF URINE: CLEAN FOJQUHQLMLQ3770-67-59 06:31:00* Test Item Value Reference Range Interpretation Comme nts LIPASE (test code = LIP) 94 UNITS/L 23-300 N [id number]-G2520-31-09 06:31:00* Test Item Value Reference Range Interpretation Comme nts TROPONIN-I (test code = TROPI) 0.019 NG/ML 0.012-0.033 N BASIC METABOLIC [id number] 06:31:00* Test Item Value Reference Range Interpretation [...] CA) 9.5 MG/DL 8.4-10.2 N HEPATIC FUNCTION [id number] 06:31:00* Test Item Value Reference Range Interpretation [...] = ALKP) 57 UNITS/L 38-126 N PROTHROMBIN LLVM5795-13-84 06:07:00* Test Item Value Reference Range Interpretation [...] systemic embolism. 3.0 - 4.5 CBC W/O [id number] 06:00:00* Test Item Value Reference Range Interpretation [...] = NRBC#) 0.00 K/mm3 0.0-0.1 N Troponin [id number] 02:46:51* Test Item Value Reference Range Interpretation Comme nts TROPONIN I (test code = 5561940380) 0.017 ng/mL <=0.034 KRYSTLE (test code = [...] of biotin. Lab Interpretation (test code = 24547-8) Normal [facility] Hospital[facility]MP2023-10-29 02:35:28* Test Item Value Reference Range Interpretation Comme nts NA (test code = 7409994821) 138 mmol/L 135-145 K (test code = 8983470453) 3.7 mmol/L 3.5-5.0 CL (test code = 6109487798) 106 mmol/L 98-108 CO2 TOTAL (test code = 3975310715) 24 mmol/L 23-31 AGAP (test code = 9832774359) 8 2-16 BUN (test code = 4307212452) 11 mg/dL 7-23 GLUCOSE (test code = 0034879863) 165 mg/dL 70-110 H CREATININE (test code = 1403623428) 0.89 mg/dL 0.60-1.25 TOTAL BILI (test code = 1226286521) 0.2 mg/dL 0.1-1.1 CALCIUM (test code = 3855858959) 9.3 mg/dL 8.6-10.6 T PROTEIN (test code = 7624583121) 7.0 g/dL 6.3-8.2 ALBUMIN (test code = 7411268087) 4.0 g/dL 3.5-5.0 ALK PHOS (test code = 8064921790) 59 U/L 34-122 ALTv (test code = 1742-6) 23 U/L 5-50 AST(SGOT) (test code = 6770271761) 27 U/L 13-40 eGFR (test code = 2972664535) 90.5 mL/min/1.73m2 KRYSTLE (test code = KRYSTLE) [...] imaging tests). Lab Interpretation (test code = 83495-0) Abnormal [facility] with Mnxs1640-34-30 02:26:10* Test Item Value Reference Range Interpretation Comme nts WBC (test code = 6690-2) 5.78 See_Comment [Automated [employer] [facility]] The system which generated this result transmitted reference range: 4.20 - 10.70 10*3/?L. The reference range was not used to interpret this result as normal/abnormal. RBC (test code = 789-8) 4.59 See_Comment [[employer]] The system which generated this result transmitted [...] g/dL 31.2-35.0 H RDW-SD (test code = 83746-6) 38.6 fL 38.5-51.6 RDW-CV (test code = 788-0) 12.6 % 12.1-15.4 PLT (test code = 777-3) 200 See_Comment [Automated messa ge] The system which generated this result transmitted reference range: 150 - 328 10*3/?L. The reference range was not used to interpret this result as normal/abnormal. MPV (test code = 46427-7) 9.6 fL 9.8-13.0 L NRBC/100 WBC (test code = 8034737491) 0.0 See_Comment [Automated [employer]] The system which generated this result transmitted reference range: 0.0 - 10.0 /100 WBCs. The reference range was not used to interpret this result as normal/abnormal. NRBC x10^3 (test code = 6545699484) See_Comment [Automated messa ge] The system which generated this result transmitted reference range: 10*3/?L. The reference range was not used to interpret this result as normal/abnormal. GRAN MAT (NEUT) % (test code = 770-8) 36.8 % IMM GRAN % (test code = 5673576530) 0.20 % LYMPH % (test code = 736-9) 54.7 % MONO % (test code = 5905-5) 7.1 % EOS % (test code = 713-8) 0.9 % BASO % (test code = 706-2) 0.3 % GRAN MAT x10^3(ANC) (test code = 8948857074) 2.13 10*3/uL 1.99-6.95 IMM GRAN x10^3 (test code = 4046019354) 0.00-0.06 LYMPH x10^3 (test code = 731-0) 3.16 10*3/uL 1.09-3.23 MONO x10^3 (test code = 742-7) 0.41 10*3/uL 0.36-1.02 EOS x10^3 (test code = 711-2) 0.05 10*3/uL 0.06-0.53 L BASO x10^3 (test code = 704-7) 0.01-0.09 Lab Interpretation (test code = 29343-9) [facility]OLIC PANEL (04274)2023-07-03 10:47:01* Test Item Value Reference Range Interpretation Comme nts NA (test code = 1637448922) 138 mmol/L 135-145 K (test code = 3533607438) 4.5 mmol/L 3.5-5.0 Slight hemolysis CL (test code = 2612767637) 103 mmol/L 98-108 CO2 TOTAL (test code = 3647618644) 23 mmol/L 23-31 AGAP (test code = 3348887961) 12 2-16 BUN (test code = 0902948660) 16 mg/dL 7-23 Slight hemolysis GLUCOSE (test code = 5330301007) 142 mg/dL 70-110 H CREATININE (test code = 7861111786) 0.99 mg/dL 0.60-1.25 TOTAL BILI (test code = 6894249570) 1.2 mg/dL 0.1-1.1 H CALCIUM (test code = 3769349464) 9.6 mg/dL 8.6-10.6 T PROTEIN (test code = 9253677465) 8.1 g/dL 6.3-8.2 ALBUMIN (test code = 4329780766) 4.6 g/dL 3.5-5.0 ALK PHOS (test code = 6027530620) 51 U/L 34-122 Slight hemolysis ALTv (test code = 1742-6) 26 U/L 5-50 AST(SGOT) (test code = 4444673887) 32 U/L 13-40 Slight hemolysis eGFR (test code = 9352225608) 80.0 mL/min/1.73m2 KRYSTLE (test code = KRYSTLE) [...] imaging tests). Lab Interpretation (test code = 33264-0) [facility]2023-[facility] 10:47:01* Test Item Value Reference Range Interpretation Comme nts LIPASE (test code = 5758511946) 955 U/L 0-220 H Lab Interpretation (test cod e = 37365-3) [facility] [id number] 10:27:34* Test Item Value Reference Range Interpretation Comme nts WBC (test code = 6690-2) 6.60 See_Comment [Automated [employer] [facility] [facility]] The system which generated this result transmitted reference range: 4.20 - 10.70 10*3/?L. The reference range was not used to interpret this result as normal/abnormal. RBC (test code = 789-8) 5.32 See_Comment [[employer]ated [facility]] The system which generated this result transmitted [...] 34.5 g/dL 31.2-35.0 RDW-SD (test code = 83152-4) 39.4 fL 38.5-51.6 RDW-CV (test code = 788-0) 12.3 % 12.1-15.4 PLT (test code = 777-3) 226 See_Comment [Automated messa ge] The system which generated this result transmitted reference range: 150 - 328 10*3/?L. The reference range was not used to interpret this result as normal/abnormal. MPV (test code = 91605-4) 9.6 fL 9.8-13.0 L NRBC/100 WBC (test code = 4439656978) 0.0 See_Comment [Automated me ssage] The system which generated this result transmitted reference range: 0.0 - 10.0 /100 WBCs. The reference range was not used to interpret this result as normal/abnormal. NRBC x10^3 (test code = 1304127365) See_Comment [Automated messa ge] The system which generated this result transmitted reference range: 10*3/?L. The reference range was not used to interpret this result as normal/abnormal. GRAN MAT (NEUT) % (test code = 770-8) 54.9 % IMM GRAN % (test code = 2585409299) 0.20 % LYMPH % (test code = 736-9) 36.2 % MONO % (test code = 5905-5) 7.9 % EOS % (test code = 713-8) 0.5 % BASO % (test code = 706-2) 0.3 % GRAN MAT x10^3(ANC) (test code = 4498681378) 3.63 10*3/uL 1.99-6.95 IMM GRAN x10^3 (test code = 5100880298) 0.00-0.06 LYMPH x10^3 (test code = 731-0) 2.39 10*3/uL 1.09-3.23 MONO x10^3 (test code = 742-7) 0.52 10*3/uL 0.36-1.02 EOS x10^3 (test code = 711-2) 0.03 10*3/uL 0.06-0.53 L BASO x10^3 (test code = 704-7) 0.01-0.09 Lab Interpretation (test code = 00073-1) [facility]normal [facility] PELVIS W/QXSL4238-64-28 00:06:00 [facility] 1970 Sex: M Patient Name: NOAH PUTNAM Unit No: [id number] EXAMS: CPT CODE: [id number] CT ABD PELVIS W/CONT 97080 Reason: diffuse abd pain CT Scan of [...] Jennifer Bass MD CC: Jessie Gleason DO; [facility] Technologist: Cory Romero CT Trscrpt Dt/ (000)t.SDR.MA50 Orig Print D/T:S: 07/02/2023 (0009) CTDI: DLP: [facility] NAME: NOAH PUTNAM [address] [place] [address] PHYS: MANOLO[address] - Jessie Gleason [address] : 1970 AGE: 52 SEX: M [place], [place] [address] LOC: D.PER PHONE #: [phone] EXAM DATE: 07/01/2023 STATUS: REG ER FAX #: RAD NO: DCDt: PAGE 1 Signed ReportTROP-I HIGH [id number] 23:55:00* Test Item Value Reference Range Interpretation [...] from other clinical conditions, the Fourth [place] Definition of Myocardial Infarction stresses clinical assessment and demonstration of a rise and/or fall in serial troponin results above the upper reference limit.Results of this assay method may be falsely depressed orelevated if patient is taking high doses of Biotin. BASIC METABOLIC ILIPV1182-73-05 23:55:00* Test Item Value Reference Range Interpretation [...] CA) 9.3 MG/DL 8.7-10.5 N HEPATIC FUNCTION [id number] 23:55:00* Test Item Value Reference Range Interpretation [...] code = ALKP) 60 Units/L 50-136 N [id number] 23:55:00* Test Item Value Reference Range Interpretation Comme nts LIPASE (test code = LIP) 259 U/L 16-77 H New Reference Ranges of 16-77 U/L please reviewrevised from 73-393 U/L on 06/30/2023 CBC W/AUTO [id number] 23:24:00* Test Item Value Reference Range Interpretation [...] = BA#) 0.02 x10 3/uL 0.0-0.2 N [id number] 12:29:00* Test Item Value Reference Range Interpretation Comme nts LIPASE (test code = LIP) 73 Units/L 73-393 N [id number] 17:24:56* Test Item Value Reference Range Interpretation Comme nts LIPASE (test code = 7046313995) 283 U/L 0-220 H Lab Interpretation (test cod e = 79561-6) Abnormal [facility] METABOLIC PANEL (NA, K, CL, CO2, GLUCOSE, BUN, CREATININE, CA)2023-04-22 17:24:35* Test Item Value Reference Range Interpretation Comme [facility] NA (test code = 2825317844) 139 mmol/L 135-145 K (test code = 7327298828) 4.0 mmol/L 3.5-5.0 CL (test code = 1653860371) 106 mmol/L 98-108 CO2 TOTAL (test code = 5042856099) 25 mmol/L 23-31 AGAP (test code = 1171727417) 8 2-16 BUN (test code = 4288156099) 21 mg/dL 7-23 GLUCOSE (test code = 7015379112) 110 mg/dL 70-110 CREATININE (test code = 1912037136) 1.06 mg/dL 0.60-1.25 CALCIUM (test code = 8672469056) 8.1 mg/dL 8.6-10.6 L eGFR (test code = 6642297613) 74.0 mL/min/1.73m2 KRYSTLE (test code = KRYSTLE) [...] imaging tests). Lab Interpretation (test code = 85103-6) [facility] [id number] 13:57:28* Test Item Value Reference Range Interpretation Comme nts CK (test code = 5975421061) 635 U/L 33-194 H Lab Interpretation (test cod e = 27865-8) [facility] (NA, K, CL, CO2, GLUCOSE, BUN, CREATININE, CA)2023-04-22 13:23:02* Test Item Value Reference Range Interpretation Comme nts NA (test code = 3934619850) 141 mmol/L 135-145 K (test code = 5818602480) 4.0 mmol/L 3.5-5.0 CL (test code = 7966335624) 107 mmol/L 98-108 CO2 TOTAL (test code = 7538052604) 27 mmol/L 23-31 AGAP (test code = 2102506682) 7 2-16 BUN (test code = 8458823263) 22 mg/dL 7-23 GLUCOSE (test code = 8681756482) 94 mg/dL 70-110 CREATININE (test code = 2370683345) 1.26 mg/dL 0.60-1.25 H CALCIUM (test code = 9859231604) 8.3 mg/dL 8.6-10.6 L eGFR (test code = 1430470078) 60.6 mL/min/1.73m2 KRYSTLE (test code = KRYSTLE) [...] imaging tests). Lab Interpretation (test code = 95615-1) [facility] 13:22:41* Test Item Value Reference Range Interpretation Comme nts LIPASE (test code = 3720903955) 897 U/L 0-220 H Lab Interpretation (test cod e = 07754-8) [facility]OLIC PAN[facility] (96515)2023-04-22 09:43:42* Test Item Value Reference Range Interpretation Comme nts NA (test code = 8107686724) 140 mmol/L 135-145 K (test code = 5778266311) 3.7 mmol/L 3.5-5.0 CL (test code = 7131397529) 103 mmol/L 98-108 CO2 TOTAL (test code = 5847752652) 24 mmol/L 23-31 AGAP (test code = 0503964890) 13 2-16 BUN (test code = 3315280418) 24 mg/dL 7-23 H GLUCOSE (test code = 2135968639) 114 mg/dL 70-110 H CREATININE (test code = 9025887402) 1.42 mg/dL 0.60-1.25 H TOTAL BILI (test code = 3796755861) 0.9 mg/dL 0.1-1.1 CALCIUM (test code = 8081771434) 9.5 mg/dL 8.6-10.6 T PROTEIN (test code = 1820747306) 9.2 g/dL 6.3-8.2 H ALBUMIN (test code = 1177638688) 4.9 g/dL 3.5-5.0 ALK PHOS (test code = 9135724546) 66 U/L 34-122 ALTv (test code = 1742-6) 25 U/L 5-50 AST(SGOT) (test code = 4577687691) 37 U/L 13-40 eGFR (test code = 6814877252) 52.8 mL/min/1.73m2 KRYSTLE (test code = KRYSTLE) [...] imaging tests). Lab Interpretation (test code = 73796-6) Abnormal [facility] WITH [id number] 09:33:37* Test Item Value Reference Range Interpretation Comme nts WBC (test code = 6690-2) 8.53 See_Comment [Automated [employer] [facility]] The system which generated this result transmitted reference range: 4.20 - 10.70 10*3/?L. The reference range was not used to interpret this result as normal/abnormal. RBC (test code = 789-8) 5.60 See_Comment H [Automated [facility]] The system which generated this result transmitted [...] g/dL 31.2-35.0 H RDW-SD (test code = 35631-1) 40.1 fL 38.5-51.6 RDW-CV (test code = 788-0) 13.0 % 12.1-15.4 PLT (test code = 777-3) 267 See_Comment [Automated [facility]] The system which generated this result transmitted reference range: 150 - 328 10*3/?L. The reference range was not used to interpret this result as normal/abnormal. MPV (test code = 55503-4) 9.6 fL 9.8-13.0 L NRBC/100 WBC (test code = 9978560631) 0.0 See_Comment [Automated me ssage] The system which generated this result transmitted reference range: 0.0 - 10.0 /100 WBCs. The reference range was not used to interpret this result as normal/abnormal. NRBC x10^3 (test code = 7565476986) See_Comment [Automated messa ge] The system which generated this result transmitted reference range: 10*3/?L. The reference range was not used to interpret this result as normal/abnormal. GRAN MAT (NEUT) % (test code = 770-8) 44.5 % IMM GRAN % (test code = 5102033290) 0.20 % LYMPH % (test code = 736-9) 43.4 % MONO % (test code = 5905-5) 10.7 % EOS % (test code = 713-8) 0.8 % BASO % (test code = 706-2) 0.4 % GRAN MAT x10^3(ANC) (test code = 6863354918) 3.80 10*3/uL 1.99-6.95 IMM GRAN x10^3 (test code = 4721219345) 0.00-0.06 LYMPH x10^3 (test code = 731-0) 3.70 10*3/uL 1.09-3.23 H MONO x10^3 (test code = 742-7) 0.91 10*3/uL 0.36-1.02 EOS x10^3 (test code = 711-2) 0.07 10*3/uL 0.06-0.53 BASO x10^3 (test code = 704-7) 0.03 10*3/uL 0.01-0.09 Lab Interpretation (test code = 42057-0) [id number] 13:23:31* Test Item Value Reference Range Interpretation Comme nts TROPONIN I (test code = 6894555056) 0.020 ng/mL <=0.034 KRYSTLE (test code = [...] of biotin. Lab Interpretation (test code = 19905-0) [facility] [id number] 13:23:31* Test Item Value Reference Range Interpretation Comme nts TROPONIN I (test code = 0683000239) 0.020 ng/mL <=0.034 KRYSTLE (test code = [...] of biotin. Lab Interpretation (test code = 98514-1) [facility] METABOLIC PANEL (35092)2023-04-16 12:58:04* Test Item Value Reference Range Interpretation Comme nts NA (test code = 0106547917) 142 mmol/L 135-145 K (test code = 1178536332) 4.0 mmol/L 3.5-5.0 CL (test code = 0730188881) 105 mmol/L 98-108 CO2 TOTAL (test code = 6834639580) 28 mmol/L 23-31 AGAP (test code = 4452956473) 9 2-16 BUN (test code = 2798966377) 11 mg/dL 7-23 GLUCOSE (test code = 6556701386) 115 mg/dL 70-110 H CREATININE (test code = 6402030027) 0.85 mg/dL 0.60-1.25 TOTAL BILI (test code = 1225285757) 0.4 mg/dL 0.1-1.1 CALCIUM (test code = 5737662940) 9.2 mg/dL 8.6-10.6 T PROTEIN (test code = 8579176692) 7.6 g/dL 6.3-8.2 ALBUMIN (test code = 0961581895) 4.4 g/dL 3.5-5.0 ALK PHOS (test code = 2350552517) 52 U/L 34-122 ALTv (test code = 1742-6) 23 U/L 5-50 AST(SGOT) (test code = 2791945015) 33 U/L 13-40 eGFR (test code = 5900859400) 95.4 mL/min/1.73m2 KRYSTLE (test code = KRYSTLE) [...] imaging tests). Lab Interpretation (test code = 60366-0) [facility] 12:58:04* Test Item Value Reference Range Interpretation Comme nts LIPASE (test code = 1616398580) 492 U/L 0-220 H Lab Interpretation (test cod e = 52047-0) Abnormal [facility]. METABOLIC PANEL (80010)2023-04-16 12:58:04* Test Item Value Reference Range Interpretation Comme nts NA (test code = 3219362408) 142 mmol/L 135-145 K (test code = 5127988074) 4.0 mmol/L 3.5-5.0 CL (test code = 5960162851) 105 mmol/L 98-108 CO2 TOTAL (test code = 4968911772) 28 mmol/L 23-31 AGAP (test code = 5531306798) 9 2-16 BUN (test code = 3833342256) 11 mg/dL 7-23 GLUCOSE (test code = 6062547517) 115 mg/dL 70-110 H CREATININE (test code = 5933778255) 0.85 mg/dL 0.60-1.25 TOTAL BILI (test code = 0678862440) 0.4 mg/dL 0.1-1.1 CALCIUM (test code = 5578762977) 9.2 mg/dL 8.6-10.6 T PROTEIN (test code = 6910884024) 7.6 g/dL 6.3-8.2 ALBUMIN (test code = 5010469056) 4.4 g/dL 3.5-5.0 ALK PHOS (test code = 0647309638) 52 U/L 34-122 ALTv (test code = 1742-6) 23 U/L 5-50 AST(SGOT) (test code = 6761456047) 33 U/L 13-40 eGFR (test code = 3739117239) 95.4 mL/min/1.73m2 KRYSTLE (test code = KRYSTLE) [...] imaging tests). Lab Interpretation (test code = 06850-9) [facility] 12:58:04* Test Item Value Reference Range Interpretation Comme nts LIPASE (test code = 4850093144) 492 U/L 0-220 H Lab Interpretation (test cod e = 29959-1) Abnormal [facility] WITH [id number] 12:50:01* Test Item Value Reference Range Interpretation Comme nts WBC (test code = 6690-2) 6.75 See_Comment [Automated [facility]] The system which generated this result transmitted reference range: 4.20 - 10.70 10*3/?L. The reference range was not used to interpret this result as normal/abnormal. RBC (test code = 789-8) 5.08 See_Comment [Automated [facility]] The system which generated this result transmitted [...] 34.9 g/dL 31.2-35.0 RDW-SD (test code = 84331-7) 41.4 fL 38.5-51.6 RDW-CV (test code = 788-0) 13.2 % 12.1-15.4 PLT (test code = 777-3) 219 See_Comment [Automated [employer]] The system which generated this result transmitted reference range: 150 - 328 10*3/?L. The reference range was not used to interpret this result as normal/abnormal. MPV (test code = 60318-8) 9.5 fL 9.8-13.0 L NRBC/100 WBC (test code = 3897731124) 0.0 See_Comment [Automated [employer]] The system which generated this result transmitted reference range: 0.0 - 10.0 /100 WBCs. The reference range was not used to interpret this result as normal/abnormal. NRBC x10^3 (test code = 1216637751) See_Comment [Automated [employer]] The system which generated this result transmitted reference range: 10*3/?L. The reference range was not used to interpret this result as normal/abnormal. GRAN MAT (NEUT) % (test code = 770-8) 46.9 % IMM GRAN % (test code = 3566154331) 0.10 % LYMPH % (test code = 736-9) 43.4 % MONO % (test code = 5905-5) 8.4 % EOS % (test code = 713-8) 0.9 % BASO % (test code = 706-2) 0.3 % GRAN MAT x10^3(ANC) (test code = 7910662476) 3.16 10*3/uL 1.99-6.95 IMM GRAN x10^3 (test code = 8353568634) 0.00-0.06 LYMPH x10^3 (test code = 731-0) 2.93 10*3/uL 1.09-3.23 MONO x10^3 (test code = 742-7) 0.57 10*3/uL 0.36-1.02 EOS x10^3 (test code = 711-2) 0.06 10*3/uL 0.06-0.53 BASO x10^3 (test code = 704-7) 0.01-0.09 Lab Interpretation (test code = 61893-8) Abnormal [facility] WITH [id number] 12:50:01* Test Item Value Reference Range Interpretation Comme nts WBC (test code = 6690-2) 6.75 See_Comment [Automated messa ge] The system which generated this result transmitted reference range: 4.20 - 10.70 10*3/?L. The reference range was not used to interpret this result as normal/abnormal. RBC (test code = 789-8) 5.08 See_Comment [Automated [employer]] The system which generated this result [...] 34.9 g/dL 31.2-35.0 RDW-SD (test code = 21497-3) 41.4 fL 38.5-51.6 RDW-CV (test code = 788-0) 13.2 % 12.1-15.4 PLT (test code = 777-3) 219 See_Comment [Automated messa ge] The system which generated this result transmitted reference range: 150 - 328 10*3/?L. The reference range was not used to interpret this result as normal/abnormal. MPV (test code = 98656-7) 9.5 fL 9.8-13.0 L NRBC/100 WBC (test code = 1836296759) 0.0 See_Comment [Automated [employer]] The system which generated this result transmitted reference range: 0.0 - 10.0 /100 WBCs. The reference range was not used to interpret this result as normal/abnormal. NRBC x10^3 (test code = 9746689737) See_Comment [Automated messa ge] The system which generated this result transmitted reference range: 10*3/?L. The reference range was not used to interpret this result as normal/abnormal. GRAN MAT (NEUT) % (test code = 770-8) 46.9 % IMM GRAN % (test code = 1476199260) 0.10 % LYMPH % (test code = 736-9) 43.4 % MONO % (test code = 5905-5) 8.4 % EOS % (test code = 713-8) 0.9 % BASO % (test code = 706-2) 0.3 % GRAN MAT x10^3(ANC) (test code = 1272536984) 3.16 10*3/uL 1.99-6.95 IMM GRAN x10^3 (test code = 7912135593) 0.00-0.06 LYMPH x10^3 (test code = 731-0) 2.93 10*3/uL 1.09-3.23 MONO x10^3 (test code = 742-7) 0.57 10*3/uL 0.36-1.02 EOS x10^3 (test code = 711-2) 0.06 10*3/uL 0.06-0.53 BASO x10^3 (test code = 704-7) 0.01-0.09 Lab Interpretation (test code = 30541-9) [facility]2023-02-13 21:02:35* Test Item Value Reference Range Interpretation Comme nts POCT GLU (test code = 6540083133) 118 mg/dL 70-110 H Lab Interpretation (test cod e = 25944-3) Abnormal [facility] WITH [id number] 05:51:48* Test Item Value Reference Range Interpretation [...] 34.4 g/dL 31.2-35.0 RDW-SD (test code = 42816-0) 38.5 fL 38.5-51.6 RDW-CV (test code = 788-0) 12.5 % 12.1-15.4 PLT (test code = 777-3) 216 See_Comment [Automated [employer]] The system which generated this result transmitted reference range: 150 - 328 10*3/?L. The reference range was not used to interpret this result as normal/abnormal. MPV (test code = 49753-1) 10.0 fL 9.8-13.0 NRBC/100 WBC (test code = 4461356399) 0.0 See_Comment [Automated [employer]] The system which generated this result transmitted reference range: 0.0 - 10.0 /100 WBCs. The reference range was not used to interpret this result as normal/abnormal. NRBC x10^3 (test code = 2680363037) See_Comment [Automated [employer]] The system which generated this result transmitted reference range: 10*3/?L. The reference range was not used to interpret this result as normal/abnormal. SEG % (test code = 71574-0) 36 % 33-76 LYMPH % (test code = 50669-3) 48 % 14-54 MONO % (test code = 54844-8) 13 % 0-4 H EOS % (test code = 66249-5) 3 % 0-3 ANC (test code = 753-4) 2.75 10*3/uL 1.99-6.95 Lab Interpretation (test code = 92129-5) Abnormal [facility]. METABOLIC PANEL (23641)2022-12-09 05:24:19* Test Item Value Reference Range Interpretation Comme nts NA (test code = 1874314672) 139 mmol/L 135-145 K (test code = 4347758083) 3.8 mmol/L 3.5-5.0 CL (test code = 5607817714) 105 mmol/L 98-108 CO2 TOTAL (test code = 3745610613) 24 mmol/L 23-31 AGAP (test code = 3352540296) 10 2-16 BUN (test code = 4296677513) 11 mg/dL 7-23 GLUCOSE (test code = 5878184334) 115 mg/dL 70-110 H CREATININE (test code = 3335315442) 0.93 mg/dL 0.60-1.25 TOTAL BILI (test code = 2036958474) 0.8 mg/dL 0.1-1.1 CALCIUM (test code = 5509779776) 9.3 mg/dL 8.6-10.6 T PROTEIN (test code = 9512622353) 8.0 g/dL 6.3-8.2 ALBUMIN (test code = 5712952769) 4.5 g/dL 3.5-5.0 ALK PHOS (test code = 8009085431) 50 U/L 34-122 ALTv (test code = 1742-6) 22 U/L 5-50 AST(SGOT) (test code = 3664004617) 36 U/L 13-40 eGFR (test code = 6259615664) 86.0 mL/min/1.73m2 KRYSTLE (test code = KRYSTLE) [...] imaging tests). Lab Interpretation (test code = 45534-2) [facility] 05:24:18* Test Item Value Reference Range Interpretation Comme nts LIPASE (test code = 5329313387) 271 U/L 0-220 H Lab Interpretation (test cod e = 42877-7) Abnormal [facility] Hospital[facility] with [id number] 22:09:52* Test Item Value Reference Range Interpretation Comme nts WBC (test code = 6690-2) See_Comment [[employer]] The system which generated this result transmitted reference range: 4.20 - 10.70 10*3/?L. The reference range was not used to interpret this result as normal/abnormal. RBC (test code = 789-8) See_Comment [[employer]] The system which generated this result transmitted [...] g/dL 31.2-35.0 H RDW-SD (test code = 15180-4) 39.2 fL 38.5-51.6 RDW-CV (test code = 788-0) 12.9 % 12.1-15.4 PLT (test code = 777-3) See_Comment [Automated messa ge] The system which generated this result transmitted reference range: 150 - 328 10*3/?L. The reference range was not used to interpret this result as normal/abnormal. MPV (test code = 76652-8) 9.0 fL 9.8-13.0 L NRBC/100 WBC (test code = 3159346057) See_Comment [Automated [employer]] The system which generated this result transmitted reference range: 0.0 - 10.0 /100 WBCs. The reference range was not used to interpret this result as normal/abnormal. NRBC x10^3 (test code = 6259847641) See_Comment [Automated messa ge] The system which generated this result transmitted reference range: 10*3/?L. The reference range was not used to interpret this result as normal/abnormal. GRAN MAT (NEUT) % (test code = 770-8) 35.3 % IMM GRAN % (test code = 6884579521) 0.00 % LYMPH % (test code = 736-9) 56.0 % MONO % (test code = 5905-5) 7.9 % EOS % (test code = 713-8) 0.4 % BASO % (test code = 706-2) 0.4 % GRAN MAT x10^3(ANC) (test code = 4989263963) 1.87 10*3/uL 1.99-6.95 L IMM GRAN x10^3 (test code = 5821227512) 0.00-0.06 LYMPH x10^3 (test code = 731-0) 2.97 10*3/uL 1.09-3.23 MONO x10^3 (test code = 742-7) 0.42 10*3/uL 0.36-1.02 EOS x10^3 (test code = 711-2) 0.06-0.53 L BASO x10^3 (test code = 704-7) 0.01-0.09 Lab Interpretation (test code = 06710-4) Abnormal [facility] METABOLIC PANEL (NA, K, CL, CO2, GLUCOSE, BUN, CREATININE, CA)2022-10-12 00:25:13* Test Item Value Reference Range Interpretation Comme nts NA (test code = 0666719911) 136 mmol/L 135-145 K (test code = 4318943833) 3.5 mmol/L 3.5-5.0 CL (test code = 3074782980) 103 mmol/L 98-108 CO2 TOTAL (test code = 2597177086) 26 mmol/L 23-31 AGAP (test code = 6648361792) 2-16 BUN (test code = 3380867507) 14 mg/dL 7-23 GLUCOSE (test code = 2042897957) 157 mg/dL 70-110 H CREATININE (test code = 6751604000) 0.80 mg/dL 0.60-1.25 CALCIUM (test code = 5465766405) 8.4 mg/dL 8.6-10.6 L eGFR (test code = 0017853341) mL/min/1.73m2 KRYSTLE (test code = KRYSTLE) Association [...] imaging tests). Lab Interpretation (test code = 27289-8) [facility]normal [facility] Hospital[facility]AT[facility] FUNCTION PAN[facility] (12912) (ALB,T.PRO,BILI T,BU/BC,ALT,AST,ALK PHOS)2022-10-12 00:25:13* Test Item Value Reference Range Interpretation Comme nts TOTAL BILI (test code = 3668889004) 1.2 mg/dL 0.1-1.1 H BILI UNCON (test code = 6565206697) 1.0 mg/dL 0.1-1.1 BILI CONJ (test code = 3942624756) 0.0 mg/dL 0.0-0.3 T PROTEIN (test code = 2994327401) 7.1 g/dL 6.3-8.2 ALBUMIN (test code = 4775215769) 4.0 g/dL 3.5-5.0 ALK PHOS (test code = 3800620876) 59 U/L 34-122 ALTv (test code = 1742-6) 38 U/L 5-50 AST(SGOT) (test code = 4288935919) 61 U/L 13-40 H Lab Interpretation (test cod e = 12189-8) Abnormal [facility] Confirmation (Lab Only)2022-10-11 21:35:47* Test Item Value Reference Range Interpretation Comme nts ABO & RH (test code = 20) O Positive Performed at [facility] Laboratory [facility] Blood [address] Free: [phone] No. [id number] [facility] HospitalType and Screen - ONCE [id number] 21:25:51* Test Item Value Reference Range Interpretation Comme nts ABO & RH (test code = 20) O POSITIVE Performed at [place] [id number] Free: [phone] No. [id number] IAT (test code = 1185) Negative Performed at [facility] Laboratory [facility] [place] [address]Msez Free: [phone] No. [id number] [facility] WITH [id number] 20:47:43* Test Item Value Reference Range Interpretation [...] g/dL 31.2-35.0 H RDW-SD (test code = 33334-3) 41.1 fL 38.5-51.6 RDW-CV (test code = 788-0) 13.2 % 12.1-15.4 PLT (test code = 777-3) See_Comment [Automated messa ge] The system which generated this result transmitted reference range: 150 - 328 10*3/?L. The reference range was not used to interpret this result as normal/abnormal. MPV (test code = 23663-4) 9.5 fL 9.8-13.0 L NRBC/100 WBC (test code = 9912926690) See_Comment [Automated me ssage] The system which generated this result transmitted reference range: 0.0 - 10.0 /100 WBCs. The reference range was not used to interpret this result as normal/abnormal. NRBC x10^3 (test code = 3461731655) See_Comment [Automated messa ge] The system which generated this result transmitted reference range: 10*3/?L. The reference range was not used to interpret this result as normal/abnormal. GRAN MAT (NEUT) % (test code = 770-8) 38.2 % IMM GRAN % (test code = 1127965495) 0.00 % LYMPH % (test code = 736-9) 53.7 % MONO % (test code = 5905-5) 7.5 % EOS % (test code = 713-8) 0.3 % BASO % (test code = 706-2) 0.3 % GRAN MAT x10^3(ANC) (test code = 1407587441) 2.46 10*3/uL 1.99-6.95 IMM GRAN x10^3 (test code = 7945887291) 0.00-0.06 LYMPH x10^3 (test code = 731-0) 3.46 10*3/uL 1.09-3.23 H MONO x10^3 (test code = 742-7) 0.48 10*3/uL 0.36-1.02 EOS x10^3 (test code = 711-2) 0.06-0.53 L BASO x10^3 (test code = 704-7) 0.01-0.09 Lab Interpretation (test code = 99027-2) [facility]normal [facility] HospitalLIPID PANEL (53375)(TOTAL CHOLESTEROL, TRIGLYCERIDES, HDL)2022-10-11 20:32:44* Test Item Value Reference Range Interpretation Comme nts CHOL (test code = 3650770282) 195 mg/dL 120-200 HDL (test code = 7314434843) 36 mg/dL See_Comment L [Automated messa ge] The system which generated this result transmitted reference range: >=40. The reference range was not used to interpret this result as normal/abnormal. HDLC RATIO (test code = 7951509153) See_Comment H [Automated messa ge] The system which generated this result transmitted reference range: <=5.0. The reference range was not used to interpret this result as normal/abnormal. TRIG (test code = 7584365223) 84 mg/dL 30-170 LDL CHOL (test code = 65619-3) 142 mg/dL See_Comment [Automated messa ge] The system which generated this result transmitted reference range: <=160. The reference range was not used to interpret this result as normal/abnormal. VLDL (test code = 4233350410) 17 mg/dL 5-60 Lab Interpretation (test code = 75574-8) Abnormal [facility] HospitalN-TERMINAL [id number] 14:23:55* Test Item Value Reference Range Interpretation Comme nts NT-proBNP (test code = 6406643060) See_Comment [Automated message] The system which generated this result transmitted reference range: <=125. The reference range was not used to interpret this result as normal/abnormal. KRYSTLE (test code = KRYSTLE) Biotin has been reported to cause a negative bias, interpret results relative to patient's use of biotin. Lab Interpretation (test code = 74491-6) Normal [facility] HospitalACTIVATED PARTIAL THRMPLAS [id number] 14:23:25* Test Item Value Reference Range Interpretation Comme nts APTT Patient (test code = 3173-2) See_Comment [Automated message] The system which generated this result transmitted reference range: 23 - 38 Seconds. The reference range was not used to interpret this result as normal/abnormal. KRYSTLE (test code = KRYSTLE) The [facility] patient population mean normal value for aPTT is 30 seconds. Lab Interpretation (test code = 87410-9) Normal [facility] Hospital[facility]2023-01-28 14:23:05* Test Item Value Reference Range Interpretation Comme nts LIPASE (test code = 8037496276) 502 U/L 0-220 H Lab Interpretation (test cod e = 74078-2) [facility]normal [facility] HospitalCOMP. METABOLIC PANEL (91184)2022-10-11 14:23:05* Test Item Value Reference Range Interpretation Comme nts NA (test code = 3609478543) 139 mmol/L 135-145 K (test code = 6908049525) 5.0 mmol/L 3.5-5.0 Slight hemolysis CL (test code = 4239096878) 103 mmol/L 98-108 CO2 TOTAL (test code = 3368212554) 28 mmol/L 23-31 AGAP (test code = 9426370081) 2-16 BUN (test code = 5816729666) 17 mg/dL 7-23 Slight hemolysis GLUCOSE (test code = 4559856407) 103 mg/dL 70-110 CREATININE (test code = 1665184845) 0.80 mg/dL 0.60-1.25 TOTAL BILI (test code = 6036743652) 1.6 mg/dL 0.1-1.1 H CALCIUM (test code = 4999831792) 9.0 mg/dL 8.6-10.6 T PROTEIN (test code = 1570496090) 8.4 g/dL 6.3-8.2 H ALBUMIN (test code = 3223429320) 4.8 g/dL 3.5-5.0 ALK PHOS (test code = 0599937028) 57 U/L 34-122 Slight hemolysis ALTv (test code = 1742-6) 49 U/L 5-50 AST(SGOT) (test code = 2836055316) 77 U/L 13-40 H Slight hemolysis eGFR (test code = 1986851622) mL/min/1.73m2 KRYSTLE (test code = KRYSTLE) Association [...] imaging tests). Lab Interpretation (test code = 11658-5) [facility]normal [facility] HospitalTR[facility]IN [id number] 14:23:05* Test Item Value Reference Range Interpretation Comments TROPONIN I (test code = 7060845435) 0.018 ng/mL See_Comment [Automated message] The system [...] of biotin. Lab Interpretation (test code = 30211-1) Normal [facility] HospitalPROTHROMBIN TIME / [id number] 14:20:24* Test Item Value Reference Range Interpretation Comme nts PROTIME PATIENT (test code = 5964-2) See_Comment [Automated [facility]] The system which generated this result transmitted reference range: 12.0 - 14.7 Seconds. The reference range was not used to interpret this result as normal/abnormal. INR (test code = 6301-6) Normal INR <1.1; Warfarin Therapeutic range 2.0 to 3.0 or 2.5 to 3.5, depending upon the indications. Lab Interpretation (test code = 92462-5) Normal [facility] HospitalCBC WITH [id number] 13:55:05* Test Item Value Reference Range Interpretation Comme nts WBC (test code = 6690-2) See_Comment [Automated [facility]] The system which generated this result transmitted [...] 34.9 g/dL 31.2-35.0 RDW-SD (test code = 13769-0) 40.4 fL 38.5-51.6 RDW-CV (test code = 788-0) 13.0 % 12.1-15.4 PLT (test code = 777-3) See_Comment [Automated [employer]] The system which generated this result transmitted reference range: 150 - 328 10*3/?L. The reference range was not used to interpret this result as normal/abnormal. MPV (test code = 30526-0) 9.1 fL 9.8-13.0 L NRBC/100 WBC (test code = 4419743456) See_Comment [Automated [employer]] The system which generated this result transmitted reference range: 0.0 - 10.0 /100 WBCs. The reference range was not used to interpret this result as normal/abnormal. NRBC x10^3 (test code = 8930925415) See_Comment [Automated [employer]] The system which generated this result transmitted reference range: 10*3/?L. The reference range was not used to interpret this result as normal/abnormal. GRAN MAT (NEUT) % (test code = 770-8) 53.2 % IMM GRAN % (test code = 3224326587) 0.10 % LYMPH % (test code = 736-9) 36.6 % MONO % (test code = 5905-5) 9.3 % EOS % (test code = 713-8) 0.5 % BASO % (test code = 706-2) 0.3 % GRAN MAT x10^3(ANC) (test code = 6480014141) 4.25 10*3/uL 1.99-6.95 IMM GRAN x10^3 (test code = 2653521412) 0.00-0.06 LYMPH x10^3 (test code = 731-0) 2.92 10*3/uL 1.09-3.23 MONO x10^3 (test code = 742-7) 0.74 10*3/uL 0.36-1.02 EOS x10^3 (test code = 711-2) 0.04 10*3/uL 0.06-0.53 L BASO x10^3 (test code = 704-7) 0.01-0.09 Lab Interpretation (test code = 14011-7) [facility]802)[facility]-09 13:23:22* Test Item Value Reference Range Interpretation Comme nts NA (test code = 2391400574) 138 mmol/L 135-145 K (test code = 2195446721) 4.5 mmol/L 3.5-5 CL (test code = 8042471425) 106 mmol/L 98-108 CO2 TOTAL (test code = 9456519306) 24 mmol/L 23-31 AGAP (test code = 1684460976) 2-16 BUN (test code = 3604793680) 18 mg/dL 7-23 GLUCOSE (test code = 0139435933) 97 mg/dL 70-110 CREATININE (test code = 1365278937) 0.98 mg/dL 0.6-1.25 TOTAL BILI (test code = 8038827074) 0.5 mg/dL 0.1-1.1 CALCIUM (test code = 0461641811) 9.3 mg/dL 8.6-10.6 T PROTEIN (test code = 1717994823) 7.3 g/dL 6.3-8.2 ALBUMIN (test code = 7084069861) 4.5 g/dL 3.5-5 ALK PHOS (test code = 6642054467) 65 U/L 34-122 ALTv (test code = 1742-6) 27 U/L 5-50 AST(SGOT) (test code = 0260989086) 33 U/L 13-40 eGFR (test code = 7431419543) mL/min/1.73m2 KRYSTLE (test code = KRYSTLE) Association [...] or urine or abnormalities in imaging tests). [facility]23[facility]01* Test Item Value Reference Range Interpretation Comme nts LIPASE (test code = 8445008589) 596 U/L 0-220 H Lab Interpretation (test cod e = 61067-8) [facility]normal [facility] WITH [id number] 13:09:00* Test Item Value Reference Range Interpretation Comme nts WBC (test code = 6690-2) See_Comment [Automated [employer] [facility]] The system which generated this result transmitted reference range: 4.20 - 10.70 10*3/?L. The reference range was not used to interpret this result as normal/abnormal. RBC (test code = 789-8) See_Comment [Automated [employer]] The system which generated this result [...] g/dL 31.2-35 H RDW-SD (test code = 81149-6) 38.3 fL 38.5-51.6 L RDW-CV (test code = 788-0) 12.3 % 12.1-15.4 PLT (test code = 777-3) See_Comment [Automated [employer]] The system which generated this result transmitted reference range: 150 - 328 10*3/?L. The reference range was not used to interpret this result as normal/abnormal. MPV (test code = 29624-8) 9.2 fL 9.8-13 L NRBC/100 WBC (test code = 5074132857) See_Comment [Automated [employer]] The system which generated this result transmitted reference range: 0.0 - 10.0 /100 WBCs. The reference range was not used to interpret this result as normal/abnormal. NRBC x10^3 (test code = 4737525151) See_Comment [Automated [employer]] The system which generated this result transmitted reference range: 10*3/?L. The reference range was not used to interpret this result as normal/abnormal. GRAN MAT (NEUT) % (test code = 770-8) 47.3 % IMM GRAN % (test code = 3366652694) 0.30 % LYMPH % (test code = 736-9) 43.8 % MONO % (test code = 5905-5) 7.8 % EOS % (test code = 713-8) 0.5 % BASO % (test code = 706-2) 0.3 % GRAN MAT x10^3(ANC) (test code = 8064926549) 3.04 10*3/uL 1.99-6.95 IMM GRAN x10^3 (test code = 1334930771) 0-0.06 LYMPH x10^3 (test code = 731-0) 2.81 10*3/uL 1.09-3.23 MONO x10^3 (test code = 742-7) 0.50 10*3/uL 0.36-1.02 EOS x10^3 (test code = 711-2) 0.03 10*3/uL 0.06-0.53 L BASO x10^3 (test code = 704-7) 0.01-0.09 Lab Interpretation (test code = 48505-3) Abnormal [facility] METABOLIC PANEL (NA, K, CL, CO2, GLUCOSE, BUN, CREATININE, CA)2021-11-01 10:40:12* Test Item Value Reference Range Interpretation Comme nts NA (test code = 9659483038) 136 mmol/L 135-145 K (test code = 0020548903) 4.2 mmol/L 3.5-5.0 CL (test code = 6899063764) 104 mmol/L 98-108 CO2 TOTAL (test code = 1699338146) 31 mmol/L 23-31 AGAP (test code = 7949856752) 2-16 L BUN (test code = 0366502377) 15 mg/dL 7-23 GLUCOSE (test code = 0023734657) 91 mg/dL 70-110 CREATININE (test code = 6317675459) 0.96 mg/dL 0.60-1.25 CALCIUM (test code = 0718989411) 8.5 mg/dL 8.6-10.6 L eGFR (test code = 5496230758) mL/min/1.73m2 KRYSTLE (test code = KRYSTLE) Association [...] imaging tests). Lab Interpretation (test code = 22017-3) [facility] 10:40:12* Test Item Value Reference Range Interpretation Comme nts MAGNESIUM (test code = 2970555727) 1.7 mg/dL 1.7-2.4 Lab Interpretation (test cod e = 95614-9) Normal [facility] HospitalPHOSPHORUS2022-02-18 10:39:52* Test Item Value Reference Range Interpretation Comme nts PHOSPHORUS (test code = 2205664200) 4.4 mg/dL 2.5-5.0 Lab Interpretation (test cod e = 78715-4) Normal [facility] HospitalCBC WITH [id number] 10:25:11* Test Item Value Reference Range Interpretation Comme nts WBC (test code = 6690-2) See_Comment [Automated [employer]] The system which generated this result transmitted reference range: 4.20 - 10.70 10*3/?L. The reference range was not used to interpret this result as normal/abnormal. RBC (test code = 789-8) See_Comment [Automated [employer]] The system which generated this result transmitted [...] 34.3 g/dL 31.2-35.0 RDW-SD (test code = 18307-4) 38.5 fL 38.5-51.6 RDW-CV (test code = 788-0) 12.3 % 12.1-15.4 PLT (test code = 777-3) See_Comment [Automated [employer] ge] The system which generated this result transmitted reference range: 150 - 328 10*3/?L. The reference range was not used to interpret this result as normal/abnormal. MPV (test code = 92910-2) 9.6 fL 9.8-13.0 L NRBC/100 WBC (test code = 9164063805) See_Comment [Automated [employer]] The system which generated this result transmitted reference range: 0.0 - 10.0 /100 WBCs. The reference range was not used to interpret this result as normal/abnormal. NRBC x10^3 (test code = 2349674150) <0.01 See_Comment [Automated [employer]] The system which generated this result transmitted reference range: 10*3/?L. The reference range was not used to interpret this result as normal/abnormal. GRAN MAT (NEUT) % (test code = 770-8) 49.5 % IMM GRAN % (test code = 1538616571) 0.30 % LYMPH % (test code = 736-9) 39.4 % MONO % (test code = 5905-5) 9.7 % EOS % (test code = 713-8) 0.8 % BASO % (test code = 706-2) 0.3 % GRAN MAT x10^3(ANC) (test code = 3008213859) 3.13 10*3/uL 1.99-6.95 IMM GRAN x10^3 (test code = 0434479174) <0.03 0.00-0.06 LYMPH x10^3 (test code = 731-0) 2.49 10*3/uL 1.09-3.23 MONO x10^3 (test code = 742-7) 0.61 10*3/uL 0.36-1.02 EOS x10^3 (test code = 711-2) 0.05 10*3/uL 0.06-0.53 L BASO x10^3 (test code = 704-7) <0.03 0.01-0.09 Lab Interpretation (test code = 93472-5) Abnormal [facility]MINAL [id number] 17:32:56* Test Item Value Reference Range Interpretation Comme nts NT-proBNP (test code = 4553539058) 13 pg/mL See_Comment [Automated message] The system which generated this result transmitted reference range: <=125. The reference range was not used to interpret this result as normal/abnormal. KRYSTLE (test code = KRYSTLE) Biotin has been reported to cause a negative bias, interpret results relative to patient's use of biotin. Lab Interpretation (test code = 91581-0) Normal [facility]MINAL [id number] 10:50:49* Test Item Value Reference Range Interpretation Comme nts NT-proBNP (test code = 9808224673) <11 See_Comment [Automated message] The system which generated this result transmitted reference range: <=125 pg/mL. The reference range was not used to interpret this result as normal/abnormal. KRYSTLE (test code = KRYSTLE) Biotin has been reported to cause a negative bias, interpret results relative to patient's use of biotin. Lab Interpretation (test code = 52713-2) Normal [facility] HospitalTROPONIN [id number] 10:36:56* Test Item Value Reference Range Interpretation Comments TROPONIN I (test code = 5243135979) 0.004 ng/mL See_Comment [Automated message] The system [...] of biotin. Lab Interpretation (test code = 29929-4) Normal [facility]. METABOLIC PANEL (26588)2021-10-31 10:33:50* Test Item Value Reference Range Interpretation Comme nts NA (test code = 1608155861) 139 mmol/L 135-145 K (test code = 7125692383) 4.0 mmol/L 3.5-5.0 CL (test code = 8358097367) 109 mmol/L 98-108 H CO2 TOTAL (test code = 1509697717) 27 mmol/L 23-31 AGAP (test code = 9480765738) 2-16 BUN (test code = 3191626104) 16 mg/dL 7-23 GLUCOSE (test code = 3113078734) 97 mg/dL 70-110 CREATININE (test code = 9223933013) 1.00 mg/dL 0.60-1.25 TOTAL BILI (test code = 2932293664) 1.0 mg/dL 0.1-1.1 CALCIUM (test code = 7117387858) 8.7 mg/dL 8.6-10.6 T PROTEIN (test code = 6876536197) 7.9 g/dL 6.3-8.2 ALBUMIN (test code = 3922343378) 4.4 g/dL 3.5-5.0 ALK PHOS (test code = 3858695053) 60 U/L 34-122 ALTv (test code = 1742-6) 56 U/L 5-50 H AST(SGOT) (test code = 5511557752) 49 U/L 13-40 H eGFR (test code = 5486217083) mL/min/1.73m2 KRYSTLE (test code = KRYSTLE) Association [...] imaging tests). Lab Interpretation (test code = 30124-5) Abnormal [facility] HospitalMagnesium [id number] 10:25:32* Test Item Value Reference Range Interpretation Comme nts MAGNESIUM (test code = 1868818721) 1.8 mg/dL 1.7-2.4 Lab Interpretation (test cod e = 25289-6) Normal [facility]PH[facility]US2022-02-17 10:25:12* Test Item Value Reference Range Interpretation Comme nts PHOSPHORUS (test code = 8224304565) 3.9 mg/dL 2.5-5.0 Lab Interpretation (test cod e = 37090-1) Normal [facility] HospitalCREATINE [id number] 10:24:52* Test Item Value Reference Range Interpretation Comme nts CK (test code = 6104186783) 215 U/L 33-194 H Lab Interpretation (test cod e = 68788-8) Abnormal [facility] with [id number] 10:18:09* Test Item Value Reference Range Interpretation [...] 33.9 g/dL 31.2-35.0 RDW-SD (test code = 07493-9) 41.3 fL 38.5-51.6 RDW-CV (test code = 788-0) 13.0 % 12.1-15.4 PLT (test code = 777-3) See_Comment [Automated [employer] ge] The system which generated this result transmitted reference range: 150 - 328 10*3/?L. The reference range was not used to interpret this result as normal/abnormal. MPV (test code = 95968-3) 10.0 fL 9.8-13.0 NRBC/100 WBC (test code = 8746206419) See_Comment [Automated [employer]] The system which generated this result transmitted reference range: 0.0 - 10.0 /100 WBCs. The reference range was not used to interpret this result as normal/abnormal. NRBC x10^3 (test code = 5665223047) <0.01 See_Comment [Automated messa ge] The system which generated this result transmitted reference range: 10*3/?L. The reference range was not used to interpret this result as normal/abnormal. GRAN MAT (NEUT) % (test code = 770-8) 46.4 % IMM GRAN % (test code = 4290719410) 0.20 % LYMPH % (test code = 736-9) 44.0 % MONO % (test code = 5905-5) 8.3 % EOS % (test code = 713-8) 0.7 % BASO % (test code = 706-2) 0.4 % GRAN MAT x10^3(ANC) (test code = 1902257557) 3.73 10*3/uL 1.99-6.95 IMM GRAN x10^3 (test code = 0997908400) <0.03 0.00-0.06 LYMPH x10^3 (test code = 731-0) 3.55 10*3/uL 1.09-3.23 H MONO x10^3 (test code = 742-7) 0.67 10*3/uL 0.36-1.02 EOS x10^3 (test code = 711-2) 0.06 10*3/uL 0.06-0.53 BASO x10^3 (test code = 704-7) 0.03 10*3/uL 0.01-0.09 Lab Interpretation (test code = 48365-0) Abnormal [facility] HospitalPROTHROMBIN TIME / [id number] 10:18:09* Test Item Value Reference Range Interpretation [...] the indications. Lab Interpretation (test code = 49575-4) Normal [facility] HospitalTROPONIN [id number] 07:43:50* Test Item Value Reference Range Interpretation Comments TROPONIN I (test code = 4420369926) 0.005 ng/mL See_Comment [Automated message] The system [...] of biotin. Lab Interpretation (test code = 19131-3) [facility] HospitalCOM. METABOLIC PANEL (68568)2021-10-30 20:56:25* Test Item Value Reference Range Interpretation Comme nts NA (test code = 3602107391) 139 mmol/L 135-145 K (test code = 4223332765) 4.8 mmol/L 3.5-5.0 CL (test code = 7069703728) 105 mmol/L 98-108 CO2 TOTAL (test code = 5246290101) 26 mmol/L 23-31 AGAP (test code = 7369261063) 2-16 BUN (test code = 7464597024) 18 mg/dL 7-23 GLUCOSE (test code = 8395498736) 135 mg/dL 70-110 H CREATININE (test code = 1893296266) 0.98 mg/dL 0.60-1.25 TOTAL BILI (test code = 0658464545) 0.8 mg/dL 0.1-1.1 CALCIUM (test code = 5693769606) 10.0 mg/dL 8.6-10.6 T PROTEIN (test code = 6433813670) 10.3 g/dL 6.3-8.2 H ALBUMIN (test code = 3342457055) 5.5 g/dL 3.5-5.0 H ALK PHOS (test code = 4501580302) 74 U/L 34-122 ALTv (test code = 1742-6) 69 U/L 5-50 H AST(SGOT) (test code = 0796740144) 59 U/L 13-40 H eGFR (test code = 7596728309) mL/min/1.73m2 KRYSTLE (test code = KRYSTLE) Association [...] imaging tests). Lab Interpretation (test code = 83961-0) [facility]normal [facility]ASE[facility] 20:56:05* Test Item Value Reference Range Interpretation Comme nts LIPASE (test code = 5192994320) 70 U/L 0-220 Lab Interpretation (test cod e = 94288-8) [facility] HospitalCBC WITH [id number] 20:34:20* Test Item Value Reference Range Interpretation Comme nts WBC (test code = 6690-2) See_Comment H [Automated [employer]] The system which generated this result transmitted reference range: 4.20 - 10.70 10*3/?L. The reference range was not used to interpret this result as normal/abnormal. RBC (test code = 789-8) See_Comment H [Automated [employer]] The system which generated this result transmitted [...] 34.3 g/dL 31.2-35.0 RDW-SD (test code = 74480-6) 40.6 fL 38.5-51.6 RDW-CV (test code = 788-0) 12.8 % 12.1-15.4 PLT (test code = 777-3) See_Comment [Automated mess[employer] ge] The system which generated this result transmitted reference range: 150 - 328 10*3/?L. The reference range was not used to interpret this result as normal/abnormal. MPV (test code = 52926-8) 9.2 fL 9.8-13.0 L NRBC/100 WBC (test code = 2712258205) See_Comment [Automated [employer]] The system which generated this result transmitted reference range: 0.0 - 10.0 /100 WBCs. The reference range was not used to interpret this result as normal/abnormal. NRBC x10^3 (test code = 9239911144) <0.01 See_Comment [Automated [employer]] The system which generated this result transmitted reference range: 10*3/?L. The reference range was not used to interpret this result as normal/abnormal. GRAN MAT (NEUT) % (test code = 770-8) 67.1 % IMM GRAN % (test code = 8937308266) 0.40 % LYMPH % (test code = 736-9) 24.5 % MONO % (test code = 5905-5) 7.6 % EOS % (test code = 713-8) 0.1 % BASO % (test code = 706-2) 0.3 % GRAN MAT x10^3(ANC) (test code = 6176128133) 7.34 10*3/uL 1.99-6.95 H IMM GRAN x10^3 (test code = 7392700202) 0.04 10*3/uL 0.00-0.06 LYMPH x10^3 (test code = 731-0) 2.67 10*3/uL 1.09-3.23 MONO x10^3 (test code = 742-7) 0.83 10*3/uL 0.36-1.02 EOS x10^3 (test code = 711-2) <0.03 0.06-0.53 L BASO x10^3 (test code = 704-7) 0.03 10*3/uL 0.01-0.09 Lab Interpretation (test code = 03433-0) [facility]normal [facility] HospitalCREATINE [id number] 05:55:54* Test Item Value Reference Range Interpretation Comme nts CK (test code = 2980911368) 3682 U/L 33-194 H Lab Interpretation (test cod e = 68929-1) Abnormal [facility] HospitalCREATINE [id number] 05:55:54* Test Item Value Reference Range Interpretation Comme nts CK (test code = 9005972410) 3682 U/L 33-194 H Lab Interpretation (test cod e = 30782-3) Abnormal [facility] METABOLIC PANEL (NA, K, CL, CO2, GLUCOSE, BUN, CREATININE, CA)2021-05-24 05:02:27* Test Item Value Reference Range Interpretation Comme nts NA (test code = 7630417377) 137 mmol/L 135-145 K (test code = 3606452679) 3.6 mmol/L 3.5-5.0 CL (test code = 0037823961) 105 mmol/L 98-108 CO2 TOTAL (test code = 4655444261) 23 mmol/L 23-31 AGAP (test code = 3932973419) 2-16 BUN (test code = 2173674630) 26 mg/dL 7-23 H GLUCOSE (test code = 4011015787) 95 mg/dL 70-110 CREATININE (test code = 8286125112) 1.31 mg/dL 0.60-1.25 H CALCIUM (test code = 7305271393) 8.6 mg/dL 8.6-10.6 eGFR (test code = 1118628835) mL/min/1.73m2 KRYSTLE (test code = KRYSTLE) Association [...] imaging tests). Lab Interpretation (test code = 35830-5) [facility] (NA, K, CL, CO2, GLUCOSE, BUN, CREATININE, CA)2021-05-24 05:02:27* Test Item Value Reference Range Interpretation Comme nts NA (test code = 8273913925) 137 mmol/L 135-145 K (test code = 1637284370) 3.6 mmol/L 3.5-5.0 CL (test code = 6650770586) 105 mmol/L 98-108 CO2 TOTAL (test code = 8789327732) 23 mmol/L 23-31 AGAP (test code = 9575000891) 2-16 BUN (test code = 1221077108) 26 mg/dL 7-23 H GLUCOSE (test code = 6356867190) 95 mg/dL 70-110 CREATININE (test code = 1756379615) 1.31 mg/dL 0.60-1.25 H CALCIUM (test code = 4663191096) 8.6 mg/dL 8.6-10.6 eGFR (test code = 2782526344) mL/min/1.73m2 KRYSTLE (test code = KRYSTLE) Association [...] imaging tests). Lab Interpretation (test code = 61093-0) [facility]normal [facility] HospitalTRTONAN [id number] 02:56:10* Test Item Value Reference Range Interpretation Comments TROPONIN I (test code = 3088202957) 0.004 ng/mL See_Comment [Automated message] The system [...] of biotin. Lab Interpretation (test code = 83769-6) Normal [facility] HospitalTROPONIN [id number] 02:56:10* Test Item Value Reference Range Interpretation Comments TROPONIN I (test code = 6833209807) 0.004 ng/mL See_Comment [Automated message] The system [...] of biotin. Lab Interpretation (test code = 53904-7) Normal [facility] HospitalCREATINE [id number] 02:41:54* Test Item Value Reference Range Interpretation Comme nts CK (test code = 7962861996) 4607 U/L 33-194 H Lab Interpretation (test cod e = 81477-5) Abnormal [facility] HospitalCREATINE [id number] 02:41:54* Test Item Value Reference Range Interpretation Comme nts CK (test code = 9094005387) 4607 U/L 33-194 H Lab Interpretation (test cod e = 53078-6) Abnormal [facility] HospitalN-TERMINAL [id number] 02:33:28* Test Item Value Reference Range Interpretation Comme nts NT-proBNP (test code = 4888635473) 14 pg/mL See_Comment [Automated message] The system which generated this result transmitted reference range: <=125. The reference range was not used to interpret this result as normal/abnormal. KRYSTLE (test code = KRYSTLE) Biotin has been reported to cause a negative bias, interpret results relative to patient's use of biotin. Lab Interpretation (test code = 97157-5) Normal [facility] HospitalN-[facility]MINAL [id number] 02:33:28* Test Item Value Reference Range Interpretation Comme nts NT-proBNP (test code = 2120383904) 14 pg/mL See_Comment [Automated message] The system which generated this result transmitted reference range: <=125. The reference range was not used to interpret this result as normal/abnormal. KRYSTLE (test code = KRYSTLE) Biotin has been reported to cause a negative bias, interpret results relative to patient's use of biotin. Lab Interpretation (test code = 10298-8) Normal [facility] HospitalURINALYSIS2021-09-10 02:29:35* Test Item Value Reference Range Interpretation Comme nts APPEARANCE (test code = 4759976114) Clear Clear COLOR (test code = 4627767595) Yellow Yellow PH (test code = 5891435712) 4.8-8.0 SP GRAVITY (test code = 3552933830) 1.003-1.030 GLU U QUAL (test code = 6775108440) Normal Normal BLOOD (test code = 5467919903) Negative Negative KETONES (test code = 0232146022) Negative Negative PROTEIN (test code = 2887-8) Negative Negative UROBILIN (test code = 9220289861) 2.0 mg/dL Normal A BILIRUBIN (test code = 3828445184) Negative Negative NITRITE (test code = 4931515273) Negative Negative LEUK MO (test code = 9706061629) Negative Negative RBC/HPF (test code = 8403870123) See_Comment [Automated [employer]] The system which generated this result transmitted reference range: 0 - 3 HPF. The reference range was not used to interpret this result as normal/abnormal. WBC/HPF (test code = 1122358919) See_Comment [Automated [employer]] The system which generated this result transmitted reference range: 0 - 5 HPF. The reference range was not used to interpret this result as normal/abnormal. BACTERIA (test code = 7085308615) Negative Negative MUCOUS (test code = 3491450981) Slight Negative LPF A SQ EPITH (test code = 9513688896) <1 HPF Lab Interpretation (test code = 92043-7) [facility]normal [facility] HospitalURINALYSIS2021-09-10 02:29:35* Test Item Value Reference Range Interpretation Comme nts APPEARANCE (test code = 8487866302) Clear Clear COLOR (test code = 3735329593) Yellow Yellow PH (test code = 2294997712) 4.8-8.0 SP GRAVITY (test code = 5968048873) 1.003-1.030 GLU U QUAL (test code = 9946061751) Normal Normal BLOOD (test code = 0008712029) Negative Negative KETONES (test code = 7931130735) Negative Negative PROTEIN (test code = 2887-8) Negative Negative UROBILIN (test code = 1758517198) 2.0 mg/dL Normal A BILIRUBIN (test code = 6369103826) Negative Negative NITRITE (test code = 9290269164) Negative Negative LEUK MO (test code = 9761351973) Negative Negative RBC/HPF (test code = 4953409868) See_Comment [Automated [facility]] The system which generated this result transmitted reference range: 0 - 3 HPF. The reference range was not used to interpret this result as normal/abnormal. WBC/HPF (test code = 7675725091) See_Comment [[employer]] The system which generated this result transmitted reference range: 0 - 5 HPF. The reference range was not used to interpret this result as normal/abnormal. BACTERIA (test code = 0250609524) Negative Negative MUCOUS (test code = 1956487258) Slight Negative LPF A SQ EPITH (test code = 7265014662) <1 HPF Lab Interpretation (test code = 52505-5) [facility] HospitalCOMP[facility] METABOLIC PANEL (59694)2021-05-24 02:25:07* Test Item Value Reference Range Interpretation Comme nts NA (test code = 8920501433) 137 mmol/L 135-145 K (test code = 5142113078) 3.1 mmol/L 3.5-5.0 L CL (test code = 2148043264) 102 mmol/L 98-108 CO2 TOTAL (test code = 7798765902) 22 mmol/L 23-31 L AGAP (test code = 3877019402) 2-16 BUN (test code = 1439065307) 28 mg/dL 7-23 H GLUCOSE (test code = 8850133823) 132 mg/dL 70-110 H CREATININE (test code = 1608851045) 1.77 mg/dL 0.60-1.25 H TOTAL BILI (test code = 3430812376) 1.0 mg/dL 0.1-1.1 CALCIUM (test code = 1775672696) 9.4 mg/dL 8.6-10.6 T PROTEIN (test code = 0318026965) 9.4 g/dL 6.3-8.2 H ALBUMIN (test code = 1115087836) 5.0 g/dL 3.5-5.0 ALK PHOS (test code = 1226357001) 79 U/L 34-122 ALTv (test code = 1742-6) 112 U/L 5-50 H AST(SGOT) (test code = 8835745456) 152 U/L 13-40 H eGFR (test code = 4307852542) mL/min/1.73m2 KRYSTLE (test code = KRYSTLE) Association [...] imaging tests). Lab Interpretation (test code = 30787-2) Abnormal [facility]. METABOLIC PANEL (48474)2021-05-24 02:25:07* Test Item Value Reference Range Interpretation Comme nts NA (test code = 4488109039) 137 mmol/L 135-145 K (test code = 4243022480) 3.1 mmol/L 3.5-5.0 L CL (test code = 8072170031) 102 mmol/L 98-108 CO2 TOTAL (test code = 0026809473) 22 mmol/L 23-31 L AGAP (test code = 5751820578) 2-16 BUN (test code = 7561672503) 28 mg/dL 7-23 H GLUCOSE (test code = 2148508570) 132 mg/dL 70-110 H CREATININE (test code = 4691814183) 1.77 mg/dL 0.60-1.25 H TOTAL BILI (test code = 6795547246) 1.0 mg/dL 0.1-1.1 CALCIUM (test code = 9116622758) 9.4 mg/dL 8.6-10.6 T PROTEIN (test code = 2250841181) 9.4 g/dL 6.3-8.2 H ALBUMIN (test code = 2350217166) 5.0 g/dL 3.5-5.0 ALK PHOS (test code = 7147529095) 79 U/L 34-122 ALTv (test code = 1742-6) 112 U/L 5-50 H AST(SGOT) (test code = 0239468031) 152 U/L 13-40 H eGFR (test code = 1583688794) mL/min/1.73m2 KRYSTLE (test code = KRYSTLE) Association [...] imaging tests). Lab Interpretation (test code = 35056-0) Abnormal [facility] WITH [id number] 02:03:22* Test Item Value Reference Range Interpretation Comme nts WBC (test code = 6690-2) See_Comment [Rerecipe] The system which generated this result transmitted reference range: 4.20 - 10.70 10*3/?L. The reference range was not used to interpret this result as normal/abnormal. RBC (test code = 789-8) See_Comment [Automated [facility]] The system which generated this result transmitted [...] g/dL 31.2-35.0 H RDW-SD (test code = 26609-6) 39.7 fL 38.5-51.6 RDW-CV (test code = 788-0) 12.7 % 12.1-15.4 PLT (test code = 777-3) See_Comment [Automated messa ge] The system which generated this result transmitted reference range: 150 - 328 10*3/?L. The reference range was not used to interpret this result as normal/abnormal. MPV (test code = 89458-6) 9.7 fL 9.8-13.0 L NRBC/100 WBC (test code = 4950284494) See_Comment [Automated [employer]] The system which generated this result transmitted reference range: 0.0 - 10.0 /100 WBCs. The reference range was not used to interpret this result as normal/abnormal. NRBC x10^3 (test code = 2952862788) <0.01 See_Comment [Automated [employer]] The system which generated this result transmitted reference range: 10*3/?L. The reference range was not used to interpret this result as normal/abnormal. GRAN MAT (NEUT) % (test code = 770-8) 45.9 % IMM GRAN % (test code = 0433320089) 0.20 % LYMPH % (test code = 736-9) 41.7 % MONO % (test code = 5905-5) 11.6 % EOS % (test code = 713-8) 0.3 % BASO % (test code = 706-2) 0.3 % GRAN MAT x10^3(ANC) (test code = 9230348019) 3.95 10*3/uL 1.99-6.95 IMM GRAN x10^3 (test code = 4594681653) <0.03 0.00-0.06 LYMPH x10^3 (test code = 731-0) 3.60 10*3/uL 1.09-3.23 H MONO x10^3 (test code = 742-7) 1.00 10*3/uL 0.36-1.02 EOS x10^3 (test code = 711-2) 0.03 10*3/uL 0.06-0.53 L BASO x10^3 (test code = 704-7) 0.03 10*3/uL 0.01-0.09 Lab Interpretation (test code = 04712-5) Abnormal [facility] WITH [id number] 02:03:22* Test Item Value Reference Range Interpretation [...] g/dL 31.2-35.0 H RDW-SD (test code = 67434-2) 39.7 fL 38.5-51.6 RDW-CV (test code = 788-0) 12.7 % 12.1-15.4 PLT (test code = 777-3) See_Comment [Automated messa ge] The system which generated this result transmitted reference range: 150 - 328 10*3/?L. The reference range was not used to interpret this result as normal/abnormal. MPV (test code = 56031-5) 9.7 fL 9.8-13.0 L NRBC/100 WBC (test code = 9942641173) See_Comment [Automated [employer] ssage] The system which generated this result transmitted reference range: 0.0 - 10.0 /100 WBCs. The reference range was not used to interpret this result as normal/abnormal. NRBC x10^3 (test code = 0528772458) <0.01 See_Comment [Automated messa ge] The system which generated this result transmitted reference range: 10*3/?L. The reference range was not used to interpret this result as normal/abnormal. GRAN MAT (NEUT) % (test code = 770-8) 45.9 % IMM GRAN % (test code = 4538772870) 0.20 % LYMPH % (test code = 736-9) 41.7 % MONO % (test code = 5905-5) 11.6 % EOS % (test code = 713-8) 0.3 % BASO % (test code = 706-2) 0.3 % GRAN MAT x10^3(ANC) (test code = 7105747306) 3.95 10*3/uL 1.99-6.95 IMM GRAN x10^3 (test code = 2427802869) <0.03 0.00-0.06 LYMPH x10^3 (test code = 731-0) 3.60 10*3/uL 1.09-3.23 H MONO x10^3 (test code = 742-7) 1.00 10*3/uL 0.36-1.02 EOS x10^3 (test code = 711-2) 0.03 10*3/uL 0.06-0.53 L BASO x10^3 (test code = 704-7) 0.03 10*3/uL 0.01-0.09 Lab Interpretation (test code = 60706-7) [facility]APID [facility]2021-05-02 00:31:00* Test Item Value Reference Range Interpretation Comme nts SARS-CoV-2 Rapid ID NOW (test code = 42483-2) Not Detected Not Detected KRYSTLE (test code = KRYSTLE) ID NOW COVID-19 As say is an isothermal nucleic acid amplification test intended for the qualitative detection of nucleic acid from SARS-CoV-2 viral RNA in nasopharyngeal (RAIL CAR REPAIRER) specimens. It is used under Emergency Use [...] clinically indicated. Lab Interpretation (test code = 06816-7) Normal [facility] STREP SCREEN FOR GROUP [id number] 00:25:45* Test Item Value Reference Range Interpretation Comme nts Streptococcus pyogenes (grou p A) antigen (test code = 32781-9) Negative Negative Lab Interpretation (test cod e = 44104-5) Normal [facility]-19 (ID NOW RAPID TESTING)2021-04-02 01:41:42* Test Item Value Reference Range Interpretation Comme nts SARS-CoV-2 Rapid ID NOW (test code = 84448-2) Not Detected Not Detected KRYSTLE (test code = KRYSTLE) ID NOW COVID-19 As say is an isothermal nucleic acid amplification test intended for the qualitative detection of nucleic acid from SARS-CoV-2 viral RNA in nasopharyngeal (RAIL CAR REPAIRER) specimens. It is used under Emergency Use [...] clinically indicated. Lab Interpretation (test code = 99389-1) Normal [facility] STREP SCREEN FOR GROUP [id number] 01:39:31* Test Item Value Reference Range Interpretation Comme nts Streptococcus pyogenes (grou p A) antigen (test code = 10100-4) Negative Negative Lab Interpretation (test cod e = 15427-1) [facility]+ VW [id number] 02:41:03 Impression: No acute osseous abnormality. AFC: [id number] of Report Exam: XR WRIST 3+ [...] soft tissue edema.IMPRESSIONImpression: No acute osseous abnormality.AFC: [id number] of Report [facility] 01:32:01* Test Item Value Reference Range Interpretation Comme nts APPEARANCE (test code = 5764756888) Clear Clear COLOR (test code = 5070357883) Yellow Yellow PH (test code = 4128361458) 4.8-8.0 SP GRAVITY (test code = 8500997656) 1.003-1.030 GLU U QUAL (test code = 3208739922) Normal Normal BLOOD (test code = 4789198678) Negative Negative KETONES (test code = 6046335062) Negative Negative PROTEIN (test code = 2887-8) Negative Negative UROBILIN (test code = 9739448784) 2.0 mg/dL Normal A BILIRUBIN (test code = 0300340950) Negative Negative NITRITE (test code = 9109606258) Negative Negative LEUK MO (test code = 7356642136) Negative Negative RBC/HPF (test code = 6183114844) See_Comment [Automated messa ge] The system which generated this result transmitted reference range: 0 - 3 HPF. The reference range was not used to interpret this result as normal/abnormal. WBC/HPF (test code = 4331569068) See_Comment [Automated messa ge] The system which generated this result transmitted reference range: 0 - 5 HPF. The reference range was not used to interpret this result as normal/abnormal. BACTERIA (test code = 6958463157) Few Negative A MUCOUS (test code = 9219898743) Slight Negative LPF A SQ EPITH (test code = 3186247823) <1 HPF Lab Interpretation (test code = 42057-2) [facility] 1 [id number] 04:09:05Impression: Mild thickening of the sol of the central airways, possibly reflectinginfectious or inflammatory bronchitis. RL: 460 AFC: [id number] Ordering physician: DARNELL HSU Indication: Cough and [...] airways, possibly reflectinginfectious or inflammatory bronchitis.RL: 460AFC: [id number] signed byMarisol Manzo MD, PhD at 11/14/2020 10:09 PM [facility] HospitalCOMPREHENSIVE METABOLIC [id number] 00:00:00* Test Item Value Reference Range Interpretation Comme nts GLUCOSE (test code = 2217) 101 MG/DL BUN (test code = 2208) 11 MG/DL CREATININE (test code = 2214) 0.88 MG/DL eGFR AMER. (test cod e = ) 118 ML/MIN/1.73 eGFR NON- AMER. (test code = 26636) 102 ML/MIN/1.73 CALC BUN/CREAT (test code = [...] (test code = 2219) 88 U/L N-TERMINAL [id number] 15:43:00* Test Item Value Reference Range Interpretation Comme nts NT-proBNP (test code = 5383349102) <11 See_Comment [Automated message] The system which generated this result transmitted reference range: <=125 pg/mL. The reference range was not used to interpret this result as normal/abnormal. KRYSTLE (test code = KRYSTLE) Biotin has been reported to cause a negative bias, interpret results relative to patient's use of biotin. Lab Interpretation (test code = 38508-2) Normal [facility] WITH [id number] 15:27:00* Test Item Value Reference Range Interpretation Comme nts WBC (test code = 6690-2) See_Comment [Automated [employer] [facility] [employer]] The system which generated this result transmitted reference range: 4.20 - 10.70 10*3/?L. The reference range was not used to interpret this result as normal/abnormal. RBC (test code = 789-8) See_Comment [Automated [employer]] The system which generated this result [...] g/dL 31.2-35 H RDW-SD (test code = 34665-3) 37.3 fL 38.5-51.6 L RDW-CV (test code = 788-0) 11.9 % 12.1-15.4 L PLT (test code = 777-3) See_Comment [Automated [employer]] The system which generated this result transmitted reference range: 150 - 328 10*3/?L. The reference range was not used to interpret this result as normal/abnormal. MPV (test code = 37879-1) 9.7 fL 9.8-13 L NRBC/100 WBC (test code = 7726582477) See_Comment [Automated [employer] ss[employer]] The system which generated this result transmitted reference range: 0.0 - 10.0 /100 WBCs. The reference range was not used to interpret this result as normal/abnormal. NRBC x10^3 (test code = 6145356485) <0.01 See_Comment [Automated [employer]] The system which generated this result transmitted reference range: 10*3/?L. The reference range was not used to interpret this result as normal/abnormal. GRAN MAT (NEUT) % (test code = 770-8) 29.2 % IMM GRAN % (test code = 6673020425) 0.20 % LYMPH % (test code = 736-9) 59.0 % MONO % (test code = 5905-5) 10.1 % EOS % (test code = 713-8) 1.1 % BASO % (test code = 706-2) 0.4 % GRAN MAT x10^3(ANC) (test code = 9241458284) 1.57 10*3/uL 1.99-6.95 L IMM GRAN x10^3 (test code = 3867776332) <0.03 0-0.06 LYMPH x10^3 (test code = 731-0) 3.17 10*3/uL 1.09-3.23 MONO x10^3 (test code = 742-7) 0.54 10*3/uL 0.36-1.02 EOS x10^3 (test code = 711-2) 0.06 10*3/uL 0.06-0.53 BASO x10^3 (test code = 704-7) <0.03 0.01-0.09 Lab Interpretation (test code = 21206-5) [facility]normal [facility] 1 [id number] 15:13:32No acute cardiopulmonary process. Preliminary Report Dictated by Resident: Efraín Alcaraz MD., have reviewed this study and agree withthe above report.PROCEDURE: XR CHEST1 VW CLINICAL INDICATION: dizzy TECHNIQUE: Frontal chest radiograph was obtained. COMPARISON: None FINDINGS: The lungs are clear. No pleural effusion or pneumothorax is seen. The heart is normal in size. No acute bony abnormality is noted. [facility], Radiant Results Inft User - 09/30/2020 9:14 AM CSTPROCEDURE: XR CHEST 1 VWCLINICAL INDICATION: dizzy TECHNIQUE: Frontal chest radiograph was obtained.COMPARISON: NoneFINDINGS:The lungs are clear. No pleural effusion or pneumothorax is seen. The heart isnormal in size.No acute bony abnormality is noted.IMPRESSIONNo acute cardiopulmonary process.Preliminary Report Dictated by Resident: Luiz Ruiz MD., have reviewed thisstudy and agree withthe above report.[facility] HospitalTROPONIN [id number] 14:59:00* Test Item Value Reference Range Interpretation Comme nts TROPONIN I (test code = 9285434058) <0.012 See_Comment [Automated message] The system which [...] biotin. ? Lab Interpretation (test code = 10189-4) [facility]78275[facility]2020-[facility]-30 14:59:00* Test Item Value Reference Range Interpretation Comme nts NA (test code = 1978362832) 139 mmol/L 135-145 K (test code = 0720529660) 3.8 mmol/L 3.5-5 CL (test code = 9407258150) 103 mmol/L 98-108 CO2 TOTAL (test code = 8848870538) 26 mmol/L 23-31 AGAP (test code = 4347052870) 2-16 BUN (test code = 4318953093) 11 mg/dL 7-23 GLUCOSE (test code = 2752325180) 163 mg/dL 70-110 H CREATININE (test code = 2170954264) 0.85 mg/dL 0.6-1.25 TOTAL BILI (test code = 8367192460) 0.6 mg/dL 0.1-1.1 CALCIUM (test code = 0201831532) 9.0 mg/dL 8.6-10.6 T PROTEIN (test code = 8248255087) 8.0 g/dL 6.3-8.2 ALBUMIN (test code = 4638786111) 4.4 g/dL 3.5-5 ALK PHOS (test code = 1729636034) 75 U/L 34-122 ALTv (test code = 1742-6) 61 U/L 5-50 H AST(SGOT) (test code = 7483703266) 54 U/L 13-40 H eGFR Calculation (Non-) (test code = 6073842676) mL/min/1.73m2 eGFR Calculation () (test code = 4023834311) mL/min/1.73m2 KRYSTLE (test code = KRYSTLE) Association [...] imaging tests). Lab Interpretation (test code = 77851-2) Abnormal [facility] BranchLIPASE, [id number] 14:59:00* Test Item Value Reference Range Interpretation Comme nts LIPASE (test code = 2664459782) 116 U/L 0-220 Lab Interpretation (test cod e = 25109-4) Normal [facility] HospitalTroponin [id number] 04:30:00* Test Item Value Reference Range Interpretation Comme nts TROPONIN I (test code = 5003579800) <0.012 See_Comment [Automated message] The system which [...] biotin. ? Lab Interpretation (test code = 24901-6) Normal [facility] HospitalComplete Metabolic [id number] 03:24:00* Test Item Value Reference Range Interpretation Comme nts NA (test code = 4502038623) 137 mmol/L 135-145 K (test code = 2342698872) 4.7 mmol/L 3.5-5 CL (test code = 2868327399) 101 mmol/L 98-108 CO2 TOTAL (test code = 8360720138) 27 mmol/L 23-31 AGAP (test code = 5104360122) 2-16 BUN (test code = 9967807320) 16 mg/dL 7-23 GLUCOSE (test code = 6408719984) 226 mg/dL 70-110 H CREATININE (test code = 6548188696) 1.13 mg/dL 0.6-1.25 TOTAL BILI (test code = 8909885084) 0.7 mg/dL 0.1-1.1 CALCIUM (test code = 2735827446) 9.3 mg/dL 8.6-10.6 T PROTEIN (test code = 2932657469) 7.8 g/dL 6.3-8.2 ALBUMIN (test code = 5599637589) 3.9 g/dL 3.5-5 ALK PHOS (test code = 2394471443) 79 U/L 34-122 ALTv (test code = 1742-6) 62 U/L 5-50 H AST(SGOT) (test code = 4382067029) 49 U/L 13-40 H eGFR Calculation (Non-) (test code = 5942952985) mL/min/1.73m2 eGFR Calculation () (test code = 1800921001) mL/min/1.73m2 KRYTSLE (test code = KRYSTLE) Association of Glomerular [...] imaging tests). Lab Interpretation (test code = 10431-0) [facility]normal [facility] HospitalLipase, [id number] 03:23:00* Test Item Value Reference Range Interpretation Comme nts LIPASE (test code = 2513148766) 317 U/L 0-220 H Lab Interpretation (test cod e = 56652-2) Abnormal [facility] HospitalCBC with [id number] 03:21:00* Test Item Value Reference Range Interpretation Comme nts WBC (test code = 6690-2) See_Comment [Automated [employer]] The system which generated this result transmitted reference range: 4.20 - 10.70 10*3/?L. The reference range was not used to interpret this result as normal/abnormal. RBC (test code = 789-8) See_Comment [Automated [employer]] The system which generated this result [...] g/dL 31.2-35 H RDW-SD (test code = 46781-9) 37.9 fL 38.5-51.6 L RDW-CV (test code = 788-0) 12.4 % 12.1-15.4 PLT (test code = 777-3) See_Comment [Automated [employer]] The system which generated this result transmitted reference range: 150 - 328 10*3/?L. The reference range was not used to interpret this result as normal/abnormal. MPV (test code = 43643-2) 9.7 fL 9.8-13 L NRBC/100 WBC (test code = 8409403609) See_Comment [Automated me ssage] The system which generated this result transmitted reference range: 0.0 - 10.0 /100 WBCs. The reference range was not used to interpret this result as normal/abnormal. NRBC x10^3 (test code = 7910216220) <0.01 See_Comment [Automated messa ge] The system which generated this result transmitted reference range: 10*3/?L. The reference range was not used to interpret this result as normal/abnormal. GRAN MAT (NEUT) % (test code = 770-8) 36.7 % IMM GRAN % (test code = 7651794830) 0.10 % LYMPH % (test code = 736-9) 50.9 % MONO % (test code = 5905-5) 11.1 % EOS % (test code = 713-8) 0.8 % BASO % (test code = 706-2) 0.4 % GRAN MAT x10^3(ANC) (test code = 0240710067) 2.59 10*3/uL 1.99-6.95 IMM GRAN x10^3 (test code = 2379806309) <0.03 0-0.06 LYMPH x10^3 (test code = 731-0) 3.61 10*3/uL 1.09-3.23 H MONO x10^3 (test code = 742-7) 0.79 10*3/uL 0.36-1.02 EOS x10^3 (test code = 711-2) 0.06 10*3/uL 0.06-0.53 BASO x10^3 (test code = 704-7) 0.03 10*3/uL 0.01-0.09 Lab Interpretation (test code = 01148-8) Abnormal [facility] History and Physical Notes Date/Time Note [...] 220). On a 12/2022 hospital stay at [facility], he was diagnosed with an idiopathic [...] by mouth daily. 90 tablet 1 Pancrelipase, Odz-Yccr-Hyzg, (Creon) [address]-[address] Particles Take 1 [...] All questions were answered. Gibran Mcadams MD [facility] Notes Date/Time Note Provider Source 2025-04-06 23:09:20 Pt discharged with diagnosis of EARNEST, muscle cramps, RUQ abdominal pain and heat exhaustion. Printed and verbal instructions reviewed with and given to pt. Prescriptions given x 0. pt verbalized understanding of teaching and recommended follow-up. Denies questions or concerns at this time. Pt ambulatory at discharge. Appears in no apparent distress. No ataxia noted. Nicole Velásquez RN [facility] 2025-04-06 19:14:39 Pt given urine cup and placed back into lobby with instructions for collecting urine sample. [facility] 2025-04-06 19:09:53 Pt arrived ambulatory without assist. Pt c/o "locking muscles" and generalized pain for the last three days. Stephy Dennison RN [facility] 2025-04-06 19:03:00 [facility] Emergency Department Note Patient Name: Noah Putnam Date of : 1970 54 year old male Treatment Room: [place] [address] Primary Care Physician: Anselmo Genao Patient Escorted by: Self [9] Mode of Arrival: Personal means [1] EMS Treatment Prior to ED Arrival: ACDS BLOCK 1 OPERATOR treatment: None Travel and Exposure Screening: Symptoms Does patient have any of these symptoms?: (not recorded) Exposure Screening Has patient had contact with someone with a communicable disease in the last month?: (not recorded) Diseases exposed to:: (not recorded) Is Patient ?: (not recorded) Exposure Date: (not recorded) Chief Complaint: Chief Complaint Patient presents with Pain Dehydration History of Present Illness: History of Present Illness Patient is a 54yo M that presents to ER with 3 day history of intermittent muscle cramps and RUQ abdominal pain. States he has vomited liquid a few times when it began and also has had decreased appetite. He feels dehydrated per patient. He denies any fevers or other acute symptoms. Hx pancreatitis. Denies any drug or alcohol usage. 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 Alcohol Use Not Currently. Drug Use Not Currently; Marijuana. Comments: former Past Surgical History: Past Surgical History: Procedure Laterality Date AK FOREARM OR WRIST SURGERY Left Review of Systems: Review of Systems Constitutional: Negative. Negative for fever. HENT: Negative. Eyes: Negative. Respiratory: Negative. Breasts: Negative. Cardiovascular: Negative. Gastrointestinal: Positive for abdominal pain. Genitourinary: Negative. Musculoskeletal: Positive for myalgias. Skin: Negative. Neurological: Negative. Psychiatric/Behavioral: Negative. Physical Exam: Physical Exam ED Triage Vitals [04/06/25 1909] Weight 124.7 kg (275 lb) Actual or estimated Estimated by patient/family report Height 1.956 m (6' 5") BP 136/87 Pulse 106 Resp 18 Temp 36.7 ?C (98.1 ?F) Temp source Oral SpO2 100 % Measured on Room air Physical Exam Vitals and nursing note reviewed. Constitutional: General: He is not in acute distress. Appearance: He is well-developed. He is not ill-appearing or toxic-appearing. HENT: Head: Normocephalic and atraumatic. Right Ear: External ear normal. Left Ear: External ear normal. Nose: Nose normal. Mouth/Throat: Mouth: Mucous membranes are moist. Eyes: Conjunctiva/sclera: Conjunctivae normal. Pupils: Pupils are equal, round, and reactive to light. Cardiovascular: Rate and Rhythm: Normal rate and regular rhythm. Pulses: Normal pulses. Heart sounds: Normal heart sounds. Pulmonary: Effort: Pulmonary effort is normal. No respiratory distress. Breath sounds: Normal breath sounds. Abdominal: General: Bowel sounds are normal. There is no distension. Palpations: Abdomen is soft. There is no mass. Tenderness: There is abdominal tenderness in the right upper quadrant. There is no guarding or rebound. Comments: Abd round Musculoskeletal: General: No tenderness or deformity. Normal range of motion. Cervical back: Normal range of motion and neck supple. Skin: General: Skin is warm and dry. Capillary Refill: Capillary refill takes less than 2 seconds. Neurological: General: No focal deficit present. Mental Status: He is alert and oriented to person, place, and time. Psychiatric: Mood and Affect: Mood normal. Behavior: Behavior normal. Thought Content: Thought content normal. Judgment: Judgment normal. Radiology: US Gall bladder Final Result EXAM: US GALL BLADDER HISTORY: 54 years-old Male; Provided indication: RUQ abd pain, r/o acute cholecystitis . TECHNIQUE: Limited abdominal ultrasound focused on the gallbladder was performed. The main portal vein was evaluated with color Doppler. Rn Triage images were obtained for the record. COMPARISON: CT abdomen pelvis on 04/02/2024 FINDINGS: PANCREAS: The pancreas is unable to be visualized due to shadowing from bowel gas. LIVER: Visualized Parenchyma: The liver parenchyma exhibits normal hepatic echogenicity and echotexture. Portal vein: Hepatopetal flow is present in the main portal vein. BILE DUCTS: No intra- or extrahepatic biliary dilatation is visualized. The common duct diameter is normal and measures 0.6 cm. GALLBLADDER: No shadowing stones are seen. The gallbladder is physiologically distended. The gallbladder wall thickness is normal and measures 0.2 cm. No pericholecystic fluid is visualized. Gomez's sign could not be accurately assessed due to pain medication. OTHER: None. IMPRESSION No cholelithiasis or sonographic evidence of acute cholecystitis. Preliminary Report Dictated by Resident: Mickey Hannon MD., have reviewed this study and agree with the above report. Lab Results: Lab Results CBC WITH DIFF - Abnormal Result Value Ref Range WBC 8.31 4.20 - 10.70 10*3/?L RBC 5.41 4.26 - 5.52 10*6/?L HGB 15.8 12.2 - 16.4 g/dL HCT 46.8 38.4 - 49.3 % MCV 86.5 81.7 - 95.6 fL MCH 29.2 26.1 - 32.7 pg MCHC 33.8 31.2 - 35.0 g/dL RDW-SD 41.3 38.5 - 51.6 fL RDW-CV 13.2 12.1 - 15.4 % PLT 293 150 - 328 10*3/?L MPV 9.5 (*) 9.8 - 13.0 fL NRBC/100 WBC 0.0 0.0 - 10.0 /100 WBCs NRBC x10 3 <0.01 10*3/?L GRAN MAT (NEUT) % 62.9 % IMM GRAN % 0.40 % LYMPH % 27.3 % MONO % 8.8 % EOS % 0.4 % BASO % 0.2 % GRAN MAT x10 3 (ANC) 5.23 1.99 - 6.95 10*3/uL IMM GRAN x10 3 0.03 0.00 - 0.06 10*3/uL LYMPH x10 3 2.27 1.09 - 3.23 10*3/uL MONO x10 3 0.73 0.36 - 1.02 10*3/uL EOS x10 3 0.03 (*) 0.06 - 0.53 10*3/uL BASO x10 3 <0.03 0.01 - 0.09 10*3/uL COMP. METABOLIC PANEL (28214) - Abnormal NA 134 (*) 135 - 145 mmol/L K 4.9 3.5 - 5.0 mmol/L CL 99 98 - 108 mmol/L CO2 TOTAL 22 (*) 23 - 31 mmol/L AGAP 13 2 - 16 BUN 40 (*) 7 - 23 mg/dL GLUCOSE 92 70 - 110 mg/dL CREATININE 1.93 (*) 0.60 - 1.25 mg/dL TOTAL BILI 0.8 0.1 - 1.1 mg/dL CALCIUM 9.3 8.6 - 10.6 mg/dL T PROTEIN 9.7 (*) 6.3 - 8.2 g/dL ALBUMIN 5.3 (*) 3.5 - 5.0 g/dL ALK PHOS 63 34 - 122 U/L ALTv 42 5 - 50 U/L AST(SGOT) 46 (*) 13 - 40 U/L eGFR 41.1 mL/min/1.73m2 CREATINE KINASE - Abnormal CK 790 (*) 33 - 194 U/L MAGNESIUM - Abnormal MAGNESIUM 2.5 (*) 1.7 - 2.4 mg/dL SEDIMENTATION RATE - Abnormal ESR 11 (*) 0 - 10 mm/HR URINALYSIS - Abnormal APPEARANCE Slightly Cloudy (*) Clear COLOR Yellow Yellow PH 5.0 4.8 - 8.0 SP GRAVITY 1.023 1.003 - 1.030 GLU U QUAL Normal Normal BLOOD Negative Negative KETONES Negative Negative PROTEIN Negative Negative UROBILIN Normal Normal BILIRUBIN Negative Negative NITRITE Negative Negative LEUK MO Negative Negative RBC/HPF 1 0 - 3 HPF WBC/HPF 2 0 - 5 HPF BACTERIA Few (*) Negative MUCOUS Slight (*) Negative LPF SQ EPITH <1 HPF HYAL CAST 7 (*) <=2 LPF LIPASE - Normal LIPASE 170 0 - 220 U/L TROPONIN I - Normal TROPONIN I 0.007 <=0.034 ng/mL C-REACTIVE PROTEIN EKG: If EKG completed, see Procedure Note. Orders and Treatments: Orders Placed This Encounter Procedures US Gall bladder CBC WITH DIFF COMP. METABOLIC PANEL (12195) Creatine Kinase Magnesium Sedimentation Rate C-Reactive Protein URINALYSIS Lipase Troponin I Orders Placed This Encounter Medications NaCl 0.9% (NS) bolus infusion 1,000 mL ketorolac (TORADOL) injection 30 mg NaCl 0.9% (NS) bolus infusion 1,000 mL NaCl 0.9% (NS) bolus infusion 1,000 mL First Provider Eval: ED Events Date/Time Event User Comments 04/06/251924 Medical Screening Begins LION RODRIGUEZ -- 04/06/251924 First Provider Evaluation LION RODRIGUEZ -- ED COURSE ED Course as of 04/06/252299 Carrie Apr 06, [id number] Patient given 3L of NS. Educated to monitor hydration and diet. Advised to follow-up with PCP in 3-5 days. Given ER return precautions. [CH] 2054 SED RATE(!): 11 [CH] 2054 TROPONIN I: 0.007 [CH] 2043 LIPASE: 170 [CH] 2041 AST(SGOT)(!): 46 [CH] 2041 NA(!): 134 [CH] 2041 CREATININE(!): 1.93 [CH] 2041 CK(!): 790 [CH] 2041 MAGNESIUM(!): 2.5 [CH] 2039 US Gall bladder IMPRESSION No cholelithiasis or sonographic evidence of acute cholecystitis. [CH] 2039 HCT: 46.8 [CH] 2039 HGB: 15.8 [CH] 0 WBC x10 3 : 8.31 [CH] ED Course User Index [CH] Lion Rodriguez FNP Diagnosis/Impression as of 04/06/252299 Muscle cramps Right upper quadrant abdominal pain EARNEST (acute kidney injury) Heat exhaustion, initial encounter Results Procedures: Procedures MDM: Assessment & Plan Medical Decision Making Patient was evaluated for an emergency medical condition related to Pain and Dehydration . Differential diagnoses considered by presenting complaints but not limited to: Dehydration Pancreatitis Cholecystitis Rhabdomyolysis. Problems Addressed: EARNEST (acute kidney injury): acute illness or injury Heat exhaustion, initial encounter: acute illness or injury Muscle cramps: acute illness or injury Right upper quadrant abdominal pain: acute illness or injury Amount and/or Complexity of Data Reviewed Labs: ordered. Decision-making details documented in ED Course. Radiology: ordered. Decision-making details documented in ED Course. Risk Prescription drug management. Flowsheet Documentation: Scoring Tools: No data recorded Disposition/Condition: ED Disposition ED Disposition Discharge Condition Stable Comment -- Discharge Medications: Patient's Medications START taking these medications No medications on file CONTINUE taking these medications which have NOT CHANGED AMLODIPINE (NORVASC) 10 MG TABLET Take 1 tablet by mouth daily. BISACODYL (DULCOLAX, BISACODYL,) 5 MG EC TABLET Take 1 tablet by mouth once daily as needed for Constipation. BISACODYL 5 MG EC TABLET Take 1 [...] hours as needed (Abdominal pain or cramping). KETOROLAC 10 MG TABLET Take 1 tablet by mouth every 6 (six) hours as needed for Pain (scale 7-10). YOBFKI-HNNAWQNU-AACNXQX (CREON) 3,000-9,500- 15,000 UNIT CAPSULE Take 1 capsule by mouth in the morning and 1 capsule at noon and 1 capsule in the evening. Take with meals. LISINOPRIL 10 MG TABLET Take 10 mg by mouth in the morning. METHOCARBAMOL 500 MG TABLET Take 1 tablet by mouth every 6 (six) hours as needed (MUSCLE SPASM). METHOCARBAMOL 750 MG TABLET Take 1 tablet by mouth every 6 (six) hours as needed for Pain (scale 7-10) (MUSCLE SPASM). METOCLOPRAMIDE HCL 10 MG TABLET [...] Vomiting (N/V) or N/V unresponsive to Ondansetron. SUCRALFATE 1 GRAM TABLET Take 1 tablet by mouth before meals and at bedtime. TRAMADOL 50 MG TABLET Take 1 tablet by mouth every 6 (six) hours as needed (pain). Indications: acute pain START taking Modified Medications as Prescribed No medications on file STOP taking these medications No medications on file Follow-up: Contact information for follow-up Anselmo Genao Specialty: FAMILY MEDICINE Relationship: PCP - General [address] [place] [address] [facility] [address] [facility] [address] Instructions: Please follow-up with PCP in 3-5 days. [facility]Emergency Department Specialty: Emergency Medicine [address] [facility] [address] Instructions: If symptoms worsen I have considered medical emergencies that could be related to this patient's clinical presentation, including life and limb threatening disease processes. I am unable to find any evidence that one might be present at this time and the patient's condition is stabilized. In my medical judgment, there is no indication for further evaluation, treatment, or admission of the patient. Comprehensive verbal and written discharge and follow up instructions have been provided to the patient and/or family. Electronically signed by: Lion Rodriguez FNP 04/06/25 2300 Cosigned by Daniel Barreto DO at 04/06/2025 11:04 PM CDT Associated attestation - Daniel Barreto DO - 04/06/2025 11:04 PM CDT This patient was examined, evaluated and cared for by the advanced practice provider. I did not examine or evaluate this patient. I was present for consultation as needed. [facility] 2025-01-02 08:34:39 Chief Complaint Patient presents with OTHER Follow up from ER Pancreatitis flare up Patient states he is not urinating like he should as well Houston Hatch MA Houston Hatch MA [facility] 2024 09:50:08 Chief Complaint Patient presents with Hospital F/U pancreatitis Houston Hatch MA [facility] 2024-06-07 20:01:54 Pt given printed and verbal [...] in no apparent distress. Stephany Membreno RN [facility] 2024-06-07 17:51:04 Patient does not want another dose of nitro. [facility] 2024-06-07 16:53:18 Patient reports getting flu shot about 2 hours ago and now developing shortness of breath. Also has some chest pressure. Yosi Garcia RN [facility] 2024-04-02 12:54:12 Pt given printed and verbal [...] distress. Left with . Caty Pang RN [facility] 2024-04-02 08:35:20 Pt arrives with c/o upper abd pain, pt states known hx pancreatitis, had recent labs and lipase elevated. Pain present for one week, worsening last 2 days. 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 Pt has been hospitalized for this. Aminta Novoa RN [facility] 2024-03-30 08:10:34 Chief Complaint Patient presents with Consultation Yosi Dos Santos LVN [facility] 2024-02-20 23:53:18 Pt given printed and [...] in no apparent distress. Carol Siddiqui RN [facility] 2024-02-20 21:42:07 Pt arrived ambulatory with complaints of abdominal pain and constipation x4 days. Pt reports hx of pancreatitis but has been out of Creon prescription for a while. Debora Bhatti RN [facility] 2023-12-09 23:47:26 Pt discharged with diagnosis of lumbar radiculopathy. Printed and verbal instructions reviewed with and given to pt. Prescriptions given x 2. Pt verbalized understanding of teaching, medication, and recommended follow-up. Denies questions or concerns at this time. Pt ambulatory at discharge. Appears in no apparent distress. No ataxia noted. Accompanied by family. 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 Preliminary Report Dictated by Resident: Campos Saeed I, Azam Shay MD., have reviewed this study and agree [...] 0.01 - 0.09 10*3/uL COMP. METABOLIC PANEL (22896) - Abnormal NA 141 135 - 145 [...] CONTRAST Cbc with Diff Comp. Metabolic Panel (10591) Urinalysis Orders Placed This Encounter Medications ketorolac [...] -- ED COURSE Diagnosis/Impression as of 12/09/23 2300 Hematuria of unknown cause Lumbar radiculopathy Procedures: [...] hours as needed (Abdominal pain or cramping). ILYPAC-BAJPPTAF-IVLOWNY (CREON) 3,000-9,500- 15,000 UNIT CAPSULE Take 1 [...] Brennan MD Relationship: PCP - General Luz [address] [address] Amrik Graham MD Specialty: ORT-ORTHOPAEDIC SURGERY [address] [facility] [id number] Electronically signed by: Abraham Orantes MD 12/09/232306 [facility] 2023-10-06 14:20:14 Chief Complaint Patient presents with New Patient Blood Pressure the patient States he will bring in all his meds the next ov [facility] 2023-07-23 07:15:00 [facility] ([facility]) EMERGENCY PROVIDER REPORT REPORT#:[id number] REPORT STATUS: Signed DATE:07/23/23 TIME: 714 PATIENT: NOAH PUTNAM UNIT #: [id number] ROOM/BED: AGE: 52 SEX: M PCP PHYS: DOES_NOT KNOW SERVICE AUTHOR: Tracy aHll MD R1 LOCATION: [facility] * ALL edits or amendments must [...] showed that the patient was seen in [facility] ED on 07/[address] AP was negative for gallbladder, biliary, pancreatic and GI disease. Patient sees a GI doctor at [facility] and is in the process of [...] # (Auto) (1.0 - 3.8 K/mm3) 2.61 [place] # (Auto) (0.1 - 0.8 K/mm3) 0.68 Eos # (Auto) (0.0 - 0.2 K/mm3) 0.04 Baso # (Auto) (0.0 - 0.2 K/mm3) 0.02 Nucleated RBCs # (Man) (0.0 - 0.1 K/mm3) 0.00 Urines Urine Color (YELLOW) YELLOW Urine Appearance (CLEAR) CLEAR Urine pH (5.0 - 9.0) 6.0 Ur Specific [place] (1.003 - 1.030) 1.025 Urine Protein (NEGATIVE [...] in the ED, and will go see [facility] GI in [place] after discharge. We will send Norflex, Bentyl, [...] Referrals Provider Referral: Karina Nascimento MD Address: [address] [place] [address] Provider Referral: Peter Pérez MD Address: [address] [place] [address] Provider Referral: Adebayo Bagley NP Address: [address] [place] [address] Provider Referral: Carola Brooks RAIL CAR REPAIRER Address: [address] [place] [address] Provider Referral: Mary Ibarra MD Address: [address] [place] [address] Provider Referral: Woody Roman RAIL CAR REPAIRER Address: [address] [address] [place] [address] Supervising Physician Note Resident Saw Pt This [...] for patient's abdominal pain. 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 Discussed no indication for admission at this facility which patient understands and agrees with plan. Patient is discharged home with analgesia antiemetics at 1039 at 1048 RPT #:[id number] END OF REPORT [facility] 2023-07-23 05:32:00 [facility] ([facility]) EMERGENCY PROVIDER REPORT REPORT#:[id number] REPORT STATUS: Signed DATE:07/23/23 TIME: 0532 PATIENT: NOAH PUTNAM UNIT #: [id number] ROOM/BED: AGE: 52 SEX: M PCP PHYS: SERVICE DT: AUTHOR: Rita Ashford LOCATION: [facility] * ALL edits or amendments must [...] History Left wrist surgery at 0533 RPT #:[id number] END OF REPORT [facility] 2023-07-01 23:26:00 [id number] [place], [place] PATIENT NAME: NOAH PUTNAM ADMIT DATE: 07/01/23 ACCOUNT NO: [id number] ROOM NO: AGE: 52 REPORT TYPE: ELECTROCARDIOGRAM SEX: M : 74 ADMITTING PHYSICIAN: ATTENDING PHYSICIAN:Jessie Gleason DO Order: [id number] Test Reason : abdominal pain Test Date/Time [...] available Confirmed by JESSIE GLEASON DO ([id number]), manuscript editor MARCIA GALVEZ ([id number]) on 07/20/2023 3:03:25 PM Referred By: Self Referred Confirmed by:JESSIE GLEASON DO at 1503 PATIENT NAME: NOAH PUTNAM [facility] 2023-07-01 23:22:00 [facility] OR A [facility] EMERGENCY PROVIDER REPORT REPORT#:[id number] REPORT STATUS: Signed DATE:07/01/23 TIME: 2321 PATIENT: NOAH PUTNAM UNIT #: [id number] ROOM/BED: AGE: 52 SEX: M PCP PHYS: Undefined Provider SERVICE AUTHOR: Jessie Gleason DO * ALL edits or amendments must be made on the electronic/computer document * HPI-Abd Pain M 40 and Over General Confirmed Patient Yes Patient Type New patient Initial Greet Date/Time 07/01/23 230 Presentation Chief Complaint Abdominal pain Sudden in [...] care urgent care and was referred to [facility]. Patient states that he went to [facility] and was discharged with tramadol after [...] % (Auto) (24 - 44 %) 41.1 [place] % (Auto) (0.0 - 4.0 %) 7.4 [...] Admin Morphine Sulfate 4 MG X1ED STA 07/012 DC 07/01 IV 07/01 2323 2327 Diagnostic [...] X1ED STA 07/028 DC 07/02 PO 07/02 0019 0032 Gastrointestinal [...] 07/01 2256 O2 Delivery Room air 07/01 225 Temp 98.1 07/01 225 Pulse 89 07/01 225 Resp 18 07/01 2256 Last Documented: Result Date Time Pulse Ox 98 07/01 2256 B/P 140/110 07/01 2256 B/P Mean 120 07/01 225 O2 Delivery Room air 07/01 225 Temp 98.1 07/01 2256 Pulse 89 07/01 225 Resp 18 07/01 2256 All vital signs [...] Tobacco Screening/Cessation Denies tobacco use at 0109 [facility] #:[id number] END OF REPORT [facility] 2023-05-20 15:08:22 Formatting of this n ote is different from the original. Chief Complaint Patient presents with Consultation Andreia Regalado CMA I [facility] 2023-05-07 23:22:46 Formatting of this n ote might be different from the original. Discharge instructions reviewed with patient. Follow up care discussed. All questions answered by RN. Patient ambulatory to [facility]. Patient in possession of all belongings. RR even and unlabored, VSS, NAD noted. Steffanie Easley RN [facility] 2023-05-07 23:01:52 Formatting of this n ote might be different from the original. DC hold for fluid admin. [facility] 2023-05-07 22:51:08 Formatting of this n ote might be different from the original. This RN chaperoned DO for rectal exam. [facility] 2023-05-07 20:30:00 Formatting of this n ote [...] Patient reports he was seen at the [facility] a few days ago and [...] RR even and unlabored. VSS. NAD noted. [facility] 2023-05-07 17:35:38 Formatting of this n ote might be different from the original. Noah Putnam is a 52 year old male presenting to ED with c/o abd pain. Patient reports hx of pancreatitis. Patient reports began having blood in stool today. Patient to green chairs due to ED saturation Helene Newell RN [facility] 2023-05-02 00:32:03 Formatting of this n ote [...] and in no distress. Marcelo Tsai RN [facility] 2023-05-01 21:28:00 Formatting of this n ote [...] in the sun today." Lelo Carbajal RN [facility] 2023-04-22 13:03:22 Formatting of this n ote [...] in no apparent distress, Jacki Rodriguez RN [facility] 2023-04-22 10:35:21 Formatting of this n ote might be different from the original. Patient ate some potatoes from meal tray, states stomach began to cramp. Patient provided juice, states that his boss is going to being him some food that he will also try but states stomach is cramping. Caty Pang RN [facility] 2023-04-22 10:28:09 Formatting of this n ote might be different from the original. Patient provided meal tray. [facility] 2023-04-22 10:18:30 Formatting of this n ote might be different from the original. Patient encouraged to eat, advised of plan of care. [facility] 2023-04-22 06:30:24 Formatting of this n ote might be different from the original. Second liter of fluids completed, pt states he is still unable to urinate, RN gave pt a urinal and encouraged pt to try, pt stated that he will but he does not feel like going yet. T Carol Siddiqui RN [facility] 2023-04-22 05:20:00 Formatting of this n ote might be different from the original. Pt walked to the bathroom, cannot void. Provider informed, orders received [facility] 2023-04-22 03:56:00 Formatting of this n ote [...] amb with steady gait Carol Wu RN [facility] 2023-04-22 03:50:00 Formatting of this n ote [...] (25 mg Slow IV Push Given 04/22/23 0421) NaCl 0.9% (NS) bolus infusion 1,000 mL (0 mL IV Infusion Stopped 04/22/23 0630) maalox:diphenhydrAMINE:lidoc nakia 2 % viscous 1:1:1 (FIRST-MOUTHWASH BLM) oral [...] components within normal limits COMP. METABOLIC PANEL (75731) - Abnormal; Notable for the following components: BUN 24 (*) GLUCOSE 114 (*) CREATININE 1.42 (*) T PROTEIN 9.2 (*) All other components within normal limits Narrative: Association of Glomerular Filtration Rate (GFR) and Staging of Kidney Disease* + +--- +--------- + | GFR (mL/min/1.73 m2) | With Kidney Damage | Without Kidney Damage + +--- +--------- + | >90 | Stage one | Normal + +--- +--------- + | 60-89 | Stage two | Decreased GFR + +--- +--------- + | 30-59 | Stage three | Stage three + +--- +--------- + | 15-29 | Stage four | Stage four + +--- +--------- + | <15 (or dialysis) | Stage five | Stage five + +--- +--------- + *Each stage assumes the associated GFR [...] (GFR) and Staging of Kidney Disease* + +--- +--------- + | GFR (mL/min/1.73 m2) | With Kidney Damage | Without Kidney Damage + +--- +--------- + | >90 | Stage one | Normal + +--- +--------- + | 60-89 | Stage two | Decreased GFR + +--- +--------- + | 30-59 | Stage three | Stage three + +--- +--------- + | 15-29 | Stage four | Stage four + +--- +--------- + | <15 (or dialysis) | Stage five | Stage five + +--- +--------- + *Each stage assumes the associated GFR [...] (GFR) and Staging of Kidney Disease* + +--- +--------- + | GFR (mL/min/1.73 m2) | With Kidney Damage | Without Kidney Damage + +--- +--------- + | >90 | Stage one | Normal + +--- +--------- + | 60-89 | Stage two | Decreased GFR + +--- +--------- + | 30-59 | Stage three | Stage three + +--- +--------- + | 15-29 | Stage four | Stage four + +--- +--------- + | <15 (or dialysis) | Stage five | Stage five + +--- +--------- + *Each stage assumes the associated GFR [...] pancreatitis type Natali Alexander DO 04/22/23 1238 [facility] 2023-04-16 08:49:36 Formatting of this n ote [...] complaining about the service. Rachana Pratt RN [facility] 2023-04-16 08:17:00 Formatting of this n ote might be different from the original. This RN and Provider at bedside. Provider explaining to pt that some of his pain could be due to being constipated, images showed pt is constipated. [facility] 2023-04-16 07:56:11 Formatting of this n ote might be different from the original. Pt returns from X-ray, NAD noted, family remains at bedside. T [facility] 2023-04-16 07:41:37 Formatting of this n ote might be different from the original. Pt transported to X-ray via [facility] transport. T [facility] 2023-04-16 07:20:37 Formatting of this n ote [...] bedside. Provider and this RN at bedside. T [facility] 2023-04-16 07:08:22 Formatting of this n ote might be different from the original. Noah Putnam is a 52 year old male presenting to ED with c/o abd pain. Patient reports pain for a few weeks. Patient reports was recently seen and diagnosed with pancreatitis. Patient endorses pain to abd and radiates to back. Patient to room for further eval Helene Newell RN [facility] 2023-04-16 06:46:00 Formatting of this n ote is different from the original. 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 METABOLIC PANEL (45250) - Abnormal NA 142 135 - 145 [...] VW CBC WITH DIFF COMP. METABOLIC PANEL (84788) LIPASE TROPONIN I Orders Placed This Encounter Medications NaCl 0.9% (NS) bolus infusion 1,000 mL ketorolac (TORADOL) injection 30 mg dicyclomine (BENTYL) injection 20 mg famotidine (PEPCID (PF)) injection 20 mg lactulose (CEPHULAC) solution 45 mL nqjyen-gwugrbqb-zaifing (CREON) 12,000-38,000 -60,000 unit capsule 2 capsule enalaprilat (VASOTEC I.V.) injection 1.25 mg bonnqn-bfhwhwpi-nougbmx (CREON) 3,000-9,500- 15,000 unit capsule hyoscyamine sulfate [...] hours as needed (Abdominal pain or cramping). VHVNGT-XPULJOJF-NPSWBRA (CREON) 3,000-9,500- 15,000 UNIT CAPSULE Take 1 [...] signed by: Adelaide Goodwin MD 04/16/23 0850 [facility] 2023-04-01 03:22:04 Formatting of this n ote [...] in no apparent distress. Lelo Carbajal RN [facility] 2023-04-01 00:02:06 Formatting of this n ote might be different from the original. History of chronic pancreatitis. Mid upper abdominal pain for 4 days. Complaining of oily stool. Vomited x2. Anuradha Nolen RN [facility]
[2025-04-19 19:42] LABS: Absolute Lymphocytes (CBC) 3.0 K/uL (0.7-4.9); Hematocrit 46.9 % (39.6-49.0); Hemoglobin 16.5 g/dL (13.6-17.9); MCH 29.9 pg (27.0-35.0); MCHC 35.2 g/dL (32.0-36.0); MCV 84.9 fL (80-100); MPV 7.1 fL (7.6-11.3); Nucleated RBC Absolute Count 0.0 (0-0); Nucleated Red Blood Cells % 0.4 % (0-0); RBC Red Blood Cell Count 5.53 M/uL (4.33-5.43); White Blood Count 9.50 thou/uL (4.3-10.9)
[2025-04-19 19:54] LABS: Sqamous Epithelial <5 /HPF (None Seen); Urine Crystals Unidentified Few /HPF (None Seen); Urine Culture Reflex Order NOT NEEDED; Urine Microscopic Reflex YN ORDER UMIC; Urine WBC Clump Rare /HPF (None Seen)
[2025-04-19 20:02] LABS: ALT/SGPT 49.0 U/L (16-61); AST/SGOT 36.0 U/L (15-37); Albumin 4.8 g/dL (3.4-5.0); Albumin/Globulin Ratio 1.1 (1.1-1.8); Alkaline Phosphatase 62.0 U/L (45-117); Anion Gap 15.5 mEq/L (5.0-15.0); BUN Blood Urea Nitrogen 45.0 mg/dL (7-18); Globulin 4.4 g/dL (2.3-3.5); Glucose Level 145.0 mg/dL (74-106); Lipase 83.0 U/L (13-75); Potassium 4.5 mEq/L (3.5-5.1)
--- NOTE | 2025-04-19 21:16 | RAD REPORT ---
EXAMINATION: Abdomen Pelvis Wo Contrast CLINICAL INDICATION: Male, 54 years old.ABD PAIN TECHNIQUE: CT abdomen and pelvis was performed, without IV contrast, as per department protocol. Axia l, sagittal and coronal reconstructions were obtained. One or more of the following dose reduction techniques were used: Automated exposure control, adjustment of the mA and/or kV according to the pat ient size, and/or iterative reconstruction. Unless otherwise specified, incidental findings do not require dedicated imaging follow-up. [id number]. IV CONTRAST: Not administered. COMPARISON: No prior exams FINDINGS: The lack of intravenous contrast limits the sensitivity of this exam for evaluation of solid visceral organs, vascular structures, and retroperitoneum. LOWER CHEST: No acute process identified.No significant pericardial effusion. UPPER GI: No significant abnormality. LIVER: No significant focal abnormality. GALLBLADDER/BILE DUCTS: No biliary ductal dilatation.? PANCREAS: No mass, ductal dilation, or brandin-pancreatic fluid. SPLEEN: Unremarkable. ADRENALS: No adrenal masses. KIDNEYS AND URETERS: No hydronephrosis.Limited evaluation for renal lesions in the absence of IV cont rast. ABDOMINAL AORTA AND OTHER VESSELS: Normal caliber aorta and IVC. PERITONEUM: No abnormal free fluid. No free air. LYMPH NODES: No pathologic lymphadenopathy. ABDOMINAL WALL: Small fat containing umbilical hernia. SMALL BOWEL/COLON: Small bowel has normal course and caliber. No colonic wall thickening or pericolon ic inflammatory changes.Normal appendix. URINARY BLADDER: Underdistended but grossly unremarkable. REPRODUCTIVE ORGANS: No pathologic process. MUSCULOSKELETAL: Moderate degenerative changes are present at L5-S1. ADDITIONAL FINDINGS: None. IMPRESSION: No acute findings within the abdomen or pelvis. No appendicitis.
--- NOTE | 2025-04-19 22:02 | ER ---
Nurse's Notes [facility] Name: Noah Putnam Age: 54 yrs Sex: Male : 1970 Arrival Date: 04/19/2025 Time: 19:17 Bed 5 Private MD: Diagnosis: Nausea with vomiting, unspecified;Diarrhea, unspecified;Muscle weakness (generalized) Presentation: 04/19 19:29 Chief complaint: Patient states: abdominal pain, nausea, vomiting, and diarrhea that cp4 started several days ago. States he is also not urinating. Coronavirus screen: Client denies travel out of the [place] in the last 14 days. At this time, the client does not indicate any symptoms associated with coronavirus-19. Ebola Screen: Patient negative for fever greater than or equal to 101.5 degrees Fahrenheit, and additional compatible Ebola Virus Disease symptoms Patient denies exposure to infectious person. Patient denies travel to an Ebola-affected area in the 21 days before illness onset. No symptoms or risks identified at this time. Initial Sepsis Screen: Does the patient meet any 2 criteria? HR > 90 bpm. No. Patient's initial sepsis screen is negative. Does the patient have a suspected source of infection? No. Patient's initial sepsis screen is negative. Risk Assessment: Do you want to hurt yourself or someone else? Patient reports no desire to harm self or others. Onset of symptoms was April 17, 2025. 19:29 Method Of Arrival: Ambulatory cp4 19:29 Acuity: BREEZY 3 cp4 Triage Assessment: 19:31 General: Appears in no apparent distress. uncomfortable, Behavior is calm, cooperative, cp4 appropriate for age. Pain: Complains of pain in abdomen. GI: Reports diarrhea, nausea, vomiting. Historical: - Allergies: 19:31 Bee Venom; cp4 - PMHx: 19:31 chronic kidney disease; Chronic Pancreatitis; Herniated disc; Hypertension; cp4 - PSHx: 19:31 left arm surgery; cp4 - Immunization history:: Adult Immunizations up to date. - Infectious Disease History:: Denies. - Social history:: Smoking status: Patient denies any tobacco usage or history of. - Family history:: not pertinent. - Hospitalizations: : No recent hospitalization is reported. Screenin:37 [facility] ED Fall Risk Assessment (Adult) History of falling in the last 3 months, lg3 including since admission No falls in past 3 months (0 pts) Confusion or Disorientation No (0 pts) Intoxicated or Sedated No (0 pts) Impaired Gait No (0 pts) Mobility Assist Device Used No (0 pt) Altered Elimination No (0 pt) Score/Fall Risk Level 0 - 2 = Low Risk Oriented to surroundings, Maintained a safe environment, Educated pt \T\ family on fall prevention, incl call for assistance when getting out of bed, Assessed \T\ reinforced patient's understanding of fall precautions. Abuse screen: Denies threats or abuse. Denies injuries from another. Nutritional screening: No deficits noted. Tuberculosis screening: No symptoms or risk factors identified. Assessment: 19:37 General: Appears in no apparent distress. comfortable, Behavior is calm, cooperative. lg3 Pain: Complains of pain in right lower quadrant and left lower quadrant. Neuro: No deficits noted. Maier Agitation-Sedation Scale (RASS): 0 - Alert and Calm Level of Consciousness is awake, alert, obeys commands, Oriented to person, place, time, situation. Cardiovascular: No deficits noted. Denies chest pain, shortness of breath, Capillary refill < 3 seconds Clubbing of nail beds is absent JVD is absent Patient's skin is warm and dry. Respiratory: No deficits noted. Airway is patent Respiratory effort is even, unlabored, Respiratory pattern is regular, symmetrical. GI: Abdomen is round non-distended, obese, Bowel sounds present X 4 quads. Abd is soft and non tender X 4 quads. Reports lower abdominal pain, cramping, diarrhea, nausea. : Reports inability to void. EENT: No deficits noted. No signs and/or symptoms were reported regarding the EENT system. Derm: No deficits noted. No signs and/or symptoms reported regarding the dermatologic system. Skin is intact, is healthy with good turgor, Skin is dry, Skin is normal, Skin temperature is warm. Musculoskeletal: No deficits noted. No signs and/or symptoms reported regarding the musculoskeletal system. Circulation, motion, and sensation intact. Range of motion: intact in all extremities. 20:20 Reassessment: Patient appears in no apparent distress at this time. No changes from lg3 previously documented assessment. Patient and/or family updated on plan of care and expected duration. Pain level reassessed. Patient is alert, oriented x 3, equal unlabored respirations, skin warm/dry/pink. 21:21 Reassessment: Patient appears in no apparent distress at this time. No changes from lg3 previously documented assessment. Patient and/or family updated on plan of care and expected duration. Pain level reassessed. Patient is alert, oriented x 3, equal unlabored respirations, skin warm/dry/pink. 22:12 Reassessment: Patient appears in no apparent distress at this time. No changes from lg3 previously documented assessment. Patient and/or family updated on plan of care and expected duration. Pain level reassessed. Patient is alert, oriented x 3, equal unlabored respirations, skin warm/dry/pink. 23:23 Reassessment: Patient appears in no apparent distress at this time. No changes from lg3 previously documented assessment. Patient and/or family updated on plan of care and expected duration. Pain level reassessed. Patient is alert, oriented x 3, equal unlabored respirations, skin warm/dry/pink. Vital Signs: 19:29 BP 163 / 86; Pulse 103; Resp 18; Temp 97; Pulse Ox 98% ; Weight 122.47 kg; Height 6 ft. cp4 5 in. ; Pain 8/10; 20:18 BP 138 / 76; Pulse 96; Resp 16 S; Pulse Ox 98% on R/A; lg3 21:22 BP 144 / 81; Pulse 93; Resp 16 S; Pulse Ox 96% on R/A; lg3 22:13 BP 138 / 87; Pulse 91; Resp 17 S; Pulse Ox 97% on R/A; lg3 23:23 BP 145 / 89; Pulse 85; Resp 15 S; Pulse Ox 96% on R/A; lg3 04/20 01:39 BP 149 / 94; Pulse 70; Resp 18; Temp 97; Pulse Ox 96% ; Pain 0/10; bm8 04/19 19:29 Body Mass Index 32.02 (122.47 kg, 195.58 cm) cp4 04/19 19:29 Pain Scale: Adult cp4 04/20 01:39 Pain Scale: Adult bm8 ED Course: 04/19 19:22 Patient arrived in ED. gm2 19:24 Davy Abebe MD is Attending Physician. rn 19:30 Faith Becerra RN is Primary Nurse. lg3 19:31 Triage completed. cp4 19:31 Arm band placed on right wrist. Patient placed in waiting room. cp4 19:37 Patient has correct armband on for positive identification. Placed in gown. Bed in low lg3 position. Call light in reach. Side rails up X 1. Client placed on continuous cardiac and pulse oximetry monitoring. NIBP monitoring applied. Door closed. Noise minimized. Warm blanket given. Pillow given. 19:37 Initial lab(s) drawn, by ED staff, sent to lab. Urine collected: clean catch specimen, lg3 clear. Inserted saline lock: 18 gauge in right antecubital area, using aseptic technique. Blood collected. Flushed with 10 mL NS. 19:39 Radiology exam delayed due to lab results not completed at this time. (BUN/Creatinine) jc4 IV insertion attempt and/or patient not having appropriate IV at this time. 19:40 UA Rfx Keo Cult if indicated Sent. lg3 19:40 CBC with Diff Sent. lg3 19:40 CMP Sent. lg3 19:40 Lipase Sent. lg3 19:56 CMP Sent. vk 19:56 Lipase Sent. vk 20:07 Bladder scan completed. 60ml. lg3 21:00 Abdomen In Process Unspecified. EDMS 22:01 Karl Torres, RN is Hospitalizing Provider. rn 04/20 01:22 No provider procedures requiring assistance completed. Patient admitted, IV remains in bm8 place. 01:33 Provided Education on: need for admit. bm8 Administered Medications: 04/19 19:39 Drug: NS 0.9% IV 1000 ml IV at 1 bolus Per protocol; to be given as a bolus over 60 lg3 minutes Route: IV; Rate: 1 bolus; Site: right antecubital; 21:22 Follow up: Response: No adverse reaction; IV Status: Completed infusion; IV Intake: lg3 1000ml 19:40 Drug: Ondansetron IVP 4 mg IVP once; over 2 minutes Route: IVP; Site: right antecubital;lg3 20:07 Follow up: Response: No adverse reaction lg3 21:40 Drug: NS 0.9% IV 1000 ml IV at 1000 ml once; to be given as a bolus over 60 minutes lg3 Route: IV; Rate: 1000 ml; Site: right antecubital; 23:23 Follow up: Response: No adverse reaction; IV Status: Completed infusion; IV Intake: lg3 1000ml 04/20 00:24 Drug: Ondansetron IVP 4 mg IVP once; over 2 minutes Route: IVP; Site: right antecubital;lg3 01:39 Follow up: Response: No adverse reaction bm8 00:25 Drug: morphine IVP or IV 4 mg IVP once over 4 mins Route: IVP; Infused Over: 4 mins; lg3 Site: right antecubital; 01:39 Follow up: Response: No adverse reaction bm8 Medication: 04/19 19:37 VIS not applicable for this client. lg3 Intake: 21:22 IV: 1000ml; Total: 1000ml. lg3 23:23 IV: 1000ml; Total: 2000ml. lg3 Outcome: 22:02 Decision to Hospitalize by Provider. rn 04/20 01:22 Admitted to Tele accompanied by nurse, via wheelchair, room 414, with chart, bm8 Condition: stable Instructed on the need for admit, Demonstrated understanding of instructions, follow-up care, medications, 01:38 Patient left the ED. bm8 Signatures: Dispatcher [employer] EDMS Davy Abebe MD MD rn Able, Lacie, RN RN lg3 Riya Borges cp4 Rafia Smith gm2 Carola Juan Brad RN RN bm8 Yosi Rodríguez jc4
--- NOTE | 2025-04-19 22:02 | EDPHYS ---
Physician Documentation [facility] Name: Noah Putnam Age: 54 yrs Sex: Male : 1970 Arrival Date: 04/19/2025 Time: 19:17 Bed 5 Private MD: ED Physician Davy Abebe HPI: 04/19 19:33 This 54 yrs old Black Male presents to ER via Ambulatory with complaints of Abdominal rn Pain, Nausea/Vomiting/Diarrhea. 19:33 Patient reports 1 week of nausea vomiting and diarrhea. Having mid and lower abdominal rn pain. Having difficulty urinating despite drinking a lot of water and taking tamsulosin. Reports malaise and fatigue. Has been hyponatremic in the past and states this feels similar to previous episodes.. Historical: - Allergies: 19:31 Bee Venom; cp4 - PMHx: 19:31 chronic kidney disease; Chronic Pancreatitis; Herniated disc; Hypertension; cp4 - PSHx: 19:31 left arm surgery; cp4 - Immunization history:: Adult Immunizations up to date. - Infectious Disease History:: Denies. - Social history:: Smoking status: Patient denies any tobacco usage or history of. - Family history:: not pertinent. - Hospitalizations: : No recent hospitalization is reported. ROS: 19:33 Constitutional: Negative for fever, chills, and weight loss, Cardiovascular: Negative rn for chest pain, palpitations, and edema, Respiratory: Negative for shortness of breath, cough, wheezing, and pleuritic chest pain, Abdomen/GI: Positive for abdominal pain with nausea vomiting diarrhea MS/Extremity: Negative for injury and deformity, Neuro: Positive for generalized weakness and malaise Exam: 19:33 Constitutional: This is a well developed, well nourished patient who is awake, alert, rn and in no acute distress. ENT: Dry mucous membranes Cardiovascular: Tachycardic, regular Respiratory: No increased work of breathing, no retractions or nasal flaring. Abdomen/GI: Soft, mild mid and suprapubic tenderness. No rebound or guarding. Neuro: Awake and alert, GCS 15 Vital Signs: 19:29 BP 163 / 86; Pulse 103; Resp 18; Temp 97; Pulse Ox 98% ; Weight 122.47 kg; Height 6 ft. cp4 5 in. ; Pain 8/10; 20:18 BP 138 / 76; Pulse 96; Resp 16 S; Pulse Ox 98% on R/A; lg3 21:22 BP 144 / 81; Pulse 93; Resp 16 S; Pulse Ox 96% on R/A; lg3 22:13 BP 138 / 87; Pulse 91; Resp 17 S; Pulse Ox 97% on R/A; lg3 23:23 BP 145 / 89; Pulse 85; Resp 15 S; Pulse Ox 96% on R/A; lg3 04/20 01:39 BP 149 / 94; Pulse 70; Resp 18; Temp 97; Pulse Ox 96% ; Pain 0/10; bm8 04/19 19:29 Body Mass Index 32.02 (122.47 kg, 195.58 cm) cp4 04/19 19:29 Pain Scale: Adult cp4 04/20 01:39 Pain Scale: Adult bm8 MDM: 04/19 19:24 Medical Screening Exam initiated rn 21:58 Differential diagnosis: Nonspecific abd pain, gastritis, pancreatitis, appendicitis, rn diverticulitis, viral gastroenteritis, gastroenteritis. Data reviewed: vital signs, nurses notes, lab test result(s), radiologic studies, CT scan, and as a result, I will discharge patient. Consideration of Admission/Observation Patient was admitted/placed on observation. Escalation of care including admission/observation considered. Care significantly affected by the following chronic conditions: Chronic Kidney Disease. Counseling: I had a detailed discussion with the patient and/or guardian regarding the historical points, exam findings, and any diagnostic results supporting the discharge/admit diagnosis, lab results, radiology results, the need for further work-up and treatment in the hospital. Response to treatment: There is no appreciated change of the patient's symptoms at this time, and as a result, I will admit patient. ED course: Patient still feels weak, nauseated, not making much urine. CT abdomen pelvis negative for acute findings. Will admit to hospitalist service for further hydration and observation.. 04/19 19:31 Order name: CBC with Diff; Complete Time: 20:03 rn 04/19 19:31 Order name: CMP; Complete Time: 20: rn 04/19 19:31 Order name: Lipase; Complete Time: 20: rn 04/19 19:31 Order name: UA Rfx Keo Cult if indicated; Complete Time: 20: rn 04/20 00:40 Order name: CBC with Automated Diff EDMS 04/20 00:40 Order name: CBC with Automated Diff EDMS 04/20 00:40 Order name: CBC with Automated Diff EDMS 04/20 00:40 Order name: CBC with Automated Diff EDMS 04/20 00:40 Order name: Comprehensive Metabolic Panel EDMS 04/20 00:40 Order name: Comprehensive Metabolic Panel EDMS 04/20 00:40 Order name: Comprehensive Metabolic Panel EDMS 04/20 00:40 Order name: Comprehensive Metabolic Panel EDMS 04/20 00:40 Order name: Magnesium EDMS 04/20 00:40 Order name: Magnesium EDMS 04/20 00:40 Order name: Magnesium EDMS 04/20 00:40 Order name: Magnesium EDMS 04/19 20:29 Order name: Abdomen ; Complete Time: 21:26 EDMS 04/20 00:38 Order name: Abdomen Exam Complete EDMS 04/20 00:38 Order name: Abdomen Exam Complete EDMS 04/19 19:31 Order name: IV Saline Lock; Complete Time: 19:40 rn 04/19 19:31 Order name: Labs collected and sent; Complete Time: 19:40 rn 04/19 19:31 Order name: Bladder Scanner: post void residual; Complete Time: 20:07 rn Administered Medications: 19:39 Drug: NS 0.9% IV 1000 ml IV at 1 bolus Per protocol; to be given as a bolus over 60 lg3 minutes Route: IV; Rate: 1 bolus; Site: right antecubital; 21:22 Follow up: Response: No adverse reaction; IV Status: Completed infusion; IV Intake: lg3 1000ml 19:40 Drug: Ondansetron IVP 4 mg IVP once; over 2 minutes Route: IVP; Site: right antecubital;lg3 20:07 Follow up: Response: No adverse reaction lg3 21:40 Drug: NS 0.9% IV 1000 ml IV at 1000 ml once; to be given as a bolus over 60 minutes lg3 Route: IV; Rate: 1000 ml; Site: right antecubital; 23:23 Follow up: Response: No adverse reaction; IV Status: Completed infusion; IV Intake: lg3 1000ml 04/20 00:24 Drug: Ondansetron IVP 4 mg IVP once; over 2 minutes Route: IVP; Site: right antecubital;lg3 01:39 Follow up: Response: No adverse reaction bm8 00:25 Drug: morphine IVP or IV 4 mg IVP once over 4 mins Route: IVP; Infused Over: 4 mins; lg3 Site: right antecubital; 01:39 Follow up: Response: No adverse reaction bm8 Disposition Summary: 04/19/25 22:02 Hospitalization Ordered Notes: Hospitalization Status: Observation rn Provider: Karl Torres rn Location: Telemetry/MedSurg (observation) rn Condition: Stable rn Problem: new rn Symptoms: are unchanged rn Bed/Room Type: Standard rn Room Assignment: 414(04/20/25 00:54) rv1 Diagnosis - Nausea with vomiting, unspecified rn - Diarrhea, unspecified rn - Muscle weakness (generalized) rn Forms: - Medication Reconciliation Form rn - SBAR form rn - Leadership Thank You Letter rn Signatures: Dispatcher [employer] EDMS Davy Abebe MD MD rn Able, Lacie, RN RN lg3 Yaneth Wong rv1 Riya Borges cp4 Damon Graham RN bm8 Corrections: (The following items were deleted from the chart) 04/19 19:32 19:32 CBC+H.LAB.BRZ ordered. EDMS EDMS 19:32 19:32 COMPREHENSIVE METABOLIC PANEL+C.LAB.BRZ ordered. EDMS EDMS 19:32 19:32 LIPASE+C.LAB.BRZ ordered. EDMS EDMS 19:32 19:32 UA Rfx Keo Cult if indicated+U.LAB.BRZ ordered. EDMS EDMS 20:29 19:32 Abdomen Pelvis W Con+CT.RAD.BRZ ordered. EDMS EDMS 04/20 00:54 04/19 22:02 rn rv1
[2025-04-20] MEDS ORDERED: ONDANSETRON 4 MG/2 ML VIAL ONE (00:20)
[2025-04-20] MEDS ORDERED: MORPHINE 4 MG/ML SYR ONE (00:21)
[2025-04-20] MEDS ORDERED: ONDANSETRON 4 MG/2 ML VIAL IV PRN (00:36)
[2025-04-20] MEDS: D5 0.45 NS 1,000 ML IV SCH (01:52)
[2025-04-20 02:05] VITALS: BMI 32.2
--- NOTE | 2025-04-20 04:04 | P.HP ---
Certification for Inpatient Patient admitted to: Inpatient With expected LOS: >2 Midnights Patient will require the following post-hospital care: None Practitioner: I am a practitioner with admitting privileges, knowledge of patient current condition, hospital course, and medical plan of care. Services: Services provided to patient in accordance with Admission requirements found in Title 42 Section 412.3 of the Code of Federal Regulations Patient History Date of Service: 04/19/25 Reason for admission: Nausea and vomiting, diarrhea, generalized body weakness. History of Present Illness: Patient is a pleasant 54-year-old male with past medical history of CKD, chronic pancreatitis, herniated disc, essential hypertension, who reports to ER complaining of nausea and vomiting nonbilious and nonbloody content, diarrhea, and generalized body weakness. Patient states been having multiple episodes of nausea and vomiting, nonbilious and nonbloody content, and diarrhea for the past couple of days, associated with abdominal pain with no chest pain or shortness of breath. Also complains of weakness with no focal or sensory deficit identified at this time, it appears patient weakness is related to possible volume depleted. Patient states he has not been on any antibiotics recently. States he had colonoscopy and EGD done with no acute findings except some polyps, states were removed. Patient states he have visited ER recently total of times for dehydration secondary to nausea and vomiting, states he was treated and discharged home. States he is really concern about his present condition. On admission assessment, patient positive for rebound tenderness right upper quadrant, will proceed to have an ultrasound of the abdomen ordered to rule out cholecystitis. Patient denies of any chest pain or shortness of breath. Patient lipase is 83, UA negative. Allergies No Known Allergies Allergy (Unverified 10/14/21 21:16) Home medications list reviewed: Yes Home Medications: Amlodipine Besylate [Norvasc] 10 mg PO DAILY 10/14/21 Famotidine 10 mg PO DAILY 10/12/24 Lisinopril/Hydrochlorothiazide [Lisinopril-Hctz 10-12.5 mg Tab] 1 tab PO DAILY 10/12/24 Pantoprazole [Protonix Tab*] 40 mg PO DAILY 10/12/24 Sucralfate [Carafate] 1 tab PO DAILY 10/12/24 Lipase/Protease/Amylase [Agnes Lugo 12,000 Unit Capsule] 1 tab PO ACHS #120 cap 10/17/24 Tamsulosin [Flomax*] 0.4 mg PO BEDTIME #90 cap 10/17/24 - Past Medical/Surgical History Has patient received pneumonia vaccine in the past: No Diabetic: No -: HTN -: herniated disc -: Pancreatitis -: BPH. -: pins in Left wrist Psychosocial/ Personal History: Patient lives at home with his fiance. - Family History Father -: Hypertension, Diabetes, Other (see notes) Mother -: Hypertension - Social History Smoking Status: Never smoker Alcohol use: No CD- Drugs: No Caffeine use: No Place of Residence: Home Review of Systems 10-point ROS is otherwise unremarkable Gastrointestinal: Nausea, Vomiting, Abdominal Pain Physical Examination - Vital Signs Temperature: 98.1 F Blood Pressure: 136/70 Pulse: 75 Respirations: 18 Pulse Ox (%): 98 - Physical Exam General: Alert, Oriented x3 HEENT: Atraumatic, Normocephalic, PERRLA, Mucous membr. moist/pink, Sclerae nonicteric Neck: Supple, 2+ carotid pulse no bruit, No LAD, Without JVD or thyroid abnormality Respiratory: Clear to auscultation bilaterally, Normal air movement Cardiovascular: No edema, Normal pulses, Regular rate/rhythm, Normal S1 S2, No gallops, No rubs, No murmurs Capillary refill: <2 Seconds Gastrointestinal: Normal bowel sounds, No ascites, No masses, Rebound, Guarding Musculoskeletal: No clubbing, No swelling, No contractures, No erythema, No tenderness, No warmth Integumentary: No rashes, No breakdown, No significant lesion, No tenderness/sw elling, No erythema, No warmth, No cyanosis Neurological: Normal gait, Normal speech, Normal strength at 5/5 x4 extr, Normal tone, Sensation intact, Cranial nerves 3-12 intact, Normal reflexes 2+, Normal affect Lymphatics: No axilla or inguinal lymphadenopathy - Studies Laboratory Data (last 24 hrs) 04/19/25 04/19/25 19:35 19:35 WBC 9.50 Hgb 16.5 Hct 46.9 Plt Count 293 Sodium 134 L Potassium 4.5 BUN 45 H Creatinine 1.98 H Glucose 145 H Total Bilirubin 0.4 AST 36 ALT 49 Alkaline Phosphatase 62 Lipase 83 H Male Exam - Male Exam Inguinal exam: No hernias Testicular exam: Non-tender (Stated by patient) Assessment and Plan - Plan Patient presents the ER complaining of abdominal pain, nausea and vomiting, diarrhea, nonbloody content. (1)Nausea and vomiting/diarrhea, body weakness. -Zofran 4 mg IV as needed every 6 hours. -D5 half NS at 100 mL/ hr. -Order ultrasound abdomen to rule out cholecystitis. Impression: Mild diffuse heterogeneous appearance of the liver parenchyma may be secondary to underlying inflammation or fatty infiltration. -N.p.o. at this time. -Do not appreciate any surgical consult at this time. There is no acute findings on patient ultrasound abdomen and CT of the abdomen. -Order stool for C. difficile and parasites. (2)Chronic pancreatitis. -Continue home medication Creon 12,000 units 1 ACHS. (3) chronic essential hypertension. -Continue home medication amlodipine 10 mg p.o. daily. (4) BPH. -Continue tamsulosin 0.4 mg nightly. (5) explained the treatment plan to the patient, solicit questions answered and voiced understanding.. Discharge Plan: Home Plan to discharge in: 72 Hours - Advance Directives Does patient have a Living Will: No Does patient have a Durable POA for Healthcare: No - Code Status/Comfort Care Code Status Assessed: Yes Code Status: Full Code Critical Care: No Time Spent Managing Pts Care (In Minutes): 55
[2025-04-20] MEDS: MORPHINE 4 MG/ML SYR IV PRN (04:35)
[2025-04-20 05:12] LABS: Absolute Lymphocytes (CBC) 3.5 K/uL (0.7-4.9); Hematocrit 40.9 % (39.6-49.0); Hemoglobin 14.3 g/dL (13.6-17.9); MCH 30.1 pg (27.0-35.0); MCHC 35.0 g/dL (32.0-36.0); MCV 86.0 fL (80-100); MPV 7.9 fL (7.6-11.3); Nucleated RBC Absolute Count 0.0 (0-0); Nucleated Red Blood Cells % 0.0 % (0-0); RBC Red Blood Cell Count 4.76 M/uL (4.33-5.43); White Blood Count 7.20 thou/uL (4.3-10.9)
[2025-04-20 05:24] LABS: ALT/SGPT 42.0 U/L (16-61); AST/SGOT 26.0 U/L (15-37); Albumin 3.9 g/dL (3.4-5.0); Albumin/Globulin Ratio 1.1 (1.1-1.8); Alkaline Phosphatase 47.0 U/L (45-117); Anion Gap 12.3 mEq/L (5.0-15.0); BUN Blood Urea Nitrogen 37.0 mg/dL (7-18); Globulin 3.5 g/dL (2.3-3.5); Glucose Level 126.0 mg/dL (74-106); Magnesium 2.3 mg/dL (1.6-2.4); Potassium 4.3 mEq/L (3.5-5.1)
[2025-04-20 05:42] LABS: Blood Morphology Comment NOT SEEN (NOT SEEN); Differential Total Cells Count 100; Segmented Neutrophils 41 % (40-80)
--- NOTE | 2025-04-20 08:10 | RAD REPORT ---
EXAMINATION: COMPLETE ABDOMINAL ULTRASOUND CLINICAL INDICATION: Right upper quad positive rebound, / Abdomen pain TECHNIQUE: Grayscale ultrasonography of the abdomen was performed. COMPARISON: No prior exam. FINDINGS: LIVER: Mild diffuse heterogenous liver parenchymal pattern observed. No focal mass seen. GALLBLADDER: No gallstones, gall bladder wall thickening or pericholecystic fluid. BILE DUCTS: Intrahepatic and extrahepatic bile ducts appear normal. Measured near the amy hepatis , the common bile duct is 3 mm. RIGHT KIDNEY: Normal in echogenicity and size. No calculus, solid mass or hydronephrosis. LEFT KIDNEY:. Normal in echogenicity and size. No calculus, solid mass or hydronephrosis. SPLEEN: Normal in echogenicity, with length of 9 cm. PANCREAS/AORTA: Partially obscured by bowel gas without abnormality grossly appreciated. IMPRESSION: Mild diffuse heterogenous appearance of the liver parenchyma may be secondary to underlying inflammat ion or fatty infiltration.
[2025-04-20 10:07] VITALS: O2SAT 98
[2025-04-20] MEDS: LIPASE/PROTEASE/AMYLASE CAP PO SCH (11:36)
[2025-04-20 13:18] VITALS: TEMP 97.8
--- NOTE | 2025-04-20 16:53 | P.DS ---
Admission Date: 04/20/25 Discharge Date: 04/20/25 Disposition: ROUTINE DISCHARGE Discharge Condition: FAIR Reason for Admission: Nausea and vomiting, diarrhea, generalized body weakness. Brief History of Present Illness: 54-year-old gentleman with a history of chronic kidney disease, chronic pancreatitis, herniated disc, hypertension presented to the emergency department with complaint of nausea and vomiting, diarrhea and general body weakness of a couple of days duration. Patient evaluated in the ED and noted to have elevated creatinine. Lipase level was normal, UA negative. Blood work also showed mild hyponatremia. Patient's hospital for further management of nausea and vomiting with dehydration. Hospital Course: Diagnosis Acute gastroenteritis Acute kidney injury Hyponatremia Chronic pancreatitis History of peptic ulcer Patient was admitted to the medical floor and treated with supportive measures including IV hydration. JAQUELINE and hyponatremia resolved with IV hydration. Patient's symptoms resolved, patient diet advanced and he tolerated regular diet with no abdominal pain or nausea. No vomiting since admission. Patient was stable vitals. He is deemed stable for discharge. Patient is prescribed with oral ciprofloxacin and Flagyl for possible bacterial gastroenteritis. Vital Signs/Physical Exam: Temp Pulse Resp BP Pulse Ox 97.8 F 72 18 132/60 98 04/20/25 12:00 04/20/25 12:00 04/20/25 12:06 04/20/25 12:00 04/20/25 12:06 General: Alert, In no apparent distress, Oriented x3 HEENT: Mucous membr. moist/pink Neck: Supple, JVD not distended Respiratory: Clear to auscultation bilaterally, Normal air movement Cardiovascular: No edema, Regular rate/rhythm, Normal S1 S2 Gastrointestinal: Normal bowel sounds, Soft and benign, No tenderness Musculoskeletal: No swelling Integumentary: No rashes, No cyanosis Neurological: Normal strength at 5/5 x4 extr Laboratory Data at Discharge: WBC 7.20 thou/uL (4.3-10.9) 04/20/25 04:02 Hgb 14.3 g/dL (13.6-17.9) D 04/20/25 04:02 Hct 40.9 % (39.6-49.0) 04/20/25 04:02 Plt Count 224 thou/uL (152-406) 04/20/25 04:02 Sodium 137 mEq/L (136-145) 04/20/25 04:02 Potassium 4.3 mEq/L (3.5-5.1) 04/20/25 04:02 BUN 37 mg/dL (7-18) H 04/20/25 04:02 Creatinine 1.28 mg/dL (0.70-1.30) 04/20/25 04:02 Glucose 126 mg/dL (74-106) H 04/20/25 04:02 Magnesium 2.3 mg/dL (1.6-2.4) 04/20/25 04:02 Total Bilirubin 0.4 mg/dL (0.2-1.0) 04/20/25 04:02 AST 26 U/L (15-37) 04/20/25 04:02 ALT 42 U/L (16-61) 04/20/25 04:02 Alkaline Phosphatase 47 U/L (45-117) D 04/20/25 04:02 Lipase 83 U/L (13-75) H 04/19/25 19:35 Home Medications: Amlodipine Besylate [Norvasc] 10 mg PO DAILY 10/14/21 Famotidine 10 mg PO DAILY 10/12/24 Lisinopril/Hydrochlorothiazide [Lisinopril-Hctz 10-12.5 mg Tab] 1 tab PO DAILY 10/12/24 Pantoprazole [Protonix Tab*] 40 mg PO DAILY 10/12/24 Sucralfate [Carafate] 1 tab PO DAILY 10/12/24 Lipase/Protease/Amylase [Creon Dr 12,000 Unit Capsule] 1 tab PO ACHS #120 cap 10/17/24 Tamsulosin [Flomax*] 0.4 mg PO BEDTIME #90 cap 10/17/24 Ciprofloxacin HCl [Cipro] 500 mg PO BID #10 tab 04/20/25 metroNIDAZOLE [Flagyl] 500 mg PO Q8H #15 tab 04/20/25 New Medications: Ciprofloxacin HCl [Cipro] 500 mg PO BID #10 tab metroNIDAZOLE [Flagyl] 500 mg PO Q8H #15 tab Diet: AHA Activity: Ad jackie Followup: Anselmo Genao DO [Primary Care Provider] - 1-2 Weeks Time spent managing pt's care (in minutes): 32
[2025-04-20 17:00] VITALS: BP 159/88
[2025-04-21] MEDS ORDERED: PANTOPRAZOLE 40MG TABLET PO SCH (06:30)
[2025-04-21] MEDS ORDERED: TAMSULOSIN 0.4 MG SR CAP PO SCH (09:00)
[2025-04-21] MEDS ORDERED: AMLODIPINE 10 MG TAB PO SCH (09:00)
== END 2025-04-20 18:07 | disposition home or self-care (01) | DRG 392 ==
LOC: ER 19:17 → 4TH 04-20 00:32
PROVIDERS: ADMIT Internal Medicine; ATTEND Internal Medicine
DX: K52.9 Noninfective gastroenteritis and colitis, unspecified (principal); N17.9 Acute kidney failure, unspecified; E87.1 Hypo-osmolality and hyponatremia; K86.1 Other chronic pancreatitis; Z87.11 Personal history of peptic ulcer disease; I12.9 Hypertensive chronic kidney disease with stage 1 through stage 4 chronic kidney disease, or unspecified chronic kidney disease; N18.9 Chronic kidney disease, unspecified; E86.0 Dehydration; Z91.030 Bee allergy status; M62.81 Muscle weakness (generalized); N40.0 Benign prostatic hyperplasia without lower urinary tract symptoms
CPT/HCPCS: 36415; 74176; 76700; 80053; 81001; 83690; 83735; 85025; 96361; 96374; 96375; 99285; J2405; J7030; J7799

== ENCOUNTER 2025-04-29 21:54 | Emergency (ER) | payer SELFPAY ==
--- OUTSIDE RECORDS SUMMARY | 2025-04-29 22:10 | XMS REPORT | Continuity of Care Document ---
Author Name Unknown Address [address] [facility] [place] [address] Organization [facility] [place] Address [address] [facility] [place] [address] Care Team Providers Care Aba Therapist Name Role Phone Emily Gaines Primary Care Physician [phone] Mayuri James Attending Clinician UnavailLION Minaya Attending Clinician Unavailable ANSELMO GENAO Attending Clinician Unavailable LEANDRO MANN Attending Clinician Unava ilable NEGRITA Attending Clinician Unavailable [id number] Attending Clinician Unavailable OMARI RAZA Attending Clinician Unavailable ADRI TAYLOR Attending Clinician Unavailable MD RICKI Attending Clinician Unavailab LUKE Lopez Attending Clinician Unavailable LUKE CLARKE Attending Clinician Unavailable Luke Clarke PA-C Attending Clinician [phone] HARSHIL STYLES QI Attending Clinician UnavailFOUZIA Davis Attending Clinician Unavailable GIBRAN MCADAMS Attending Clinician Unavailable BROOK ALLEN Attending Clinician Unav ailable LAB90 Attending Clinician Unavailable Trevor TAYLOR Attending Clinician Unavailable Trevor TAYLOR Attending Clinician Unavailable GERALD VIDAL Attending Clinician Unavailable LAB47 Attending Clinician Unavailable Karl Ferguson MD Attending Clinician [phone] OUTSIDE, REPORTED Attending Clinician UnavailElida Patrick MD Attending Clinician [phone] LETI RIVAS Attending Clinician Unavailable LETI RIVAS Attending Clinician Unavailable ABRAHAM ORANTES Attending Clinician Unavailable Abraham Orantes MD Attending Clinician [phone] Chavez Turner DO Attending Clinician [phone] CALLIE MUNOZ Attending Clinician Unavailable CALLIE MUNOZ Attending Clinician Unavailable MERLYN HIDALGO Attending Clinician Unavailable Doctor Unassigned, [place] Attending Clinician U navailable ADAN CHESTER Attending Clinician Unav ailable KIARA RICHARDSON Attending Clinician Unava ilable JOHNATHAN AVILA Attending Clinician Unavail able Johnathan Avlia MD Attending Clinician Jessie Paul Attending Clinician Unavaila JIMMY Mayfield Attending Clinician Unavailabl STEPHIE Cortes Attending Clinician Unavailab MIRIAM Cervantes Attending Clinician Unavailable MIRIAM LUDWIG Attending Clinician Unavailable Haresh Santamaria MD Attending Clinician + Jessie Gleason Attending Clinician Unavailab atilio [place], PhysPrem Attending Clinician Unavailab le LAB56 Attending Clinician Unavailable MANFRED LANE Attending Clinician UnavailAYDIN Peralta Attending Clinician Unavailable Carlo ALLEN, Aydin Attending Clinician + NATALI ALEXANDER Attending Clinician Unavailab Natali Glass DO Attending Clinician +[phone] ADELAIDE GOODWIN Attending Clinician Unavailable Adelaide Goodwin MD Attending Clinician [phone] HEMALATHA MORA Attending Clinician Unavailable Morgan FORESTRY HUNTER, Hemalatha Attending Clinician + [phone] JESSICA GONZALES Attending Clinician Unavailable Jessica Pradhan Attending Clinician [phone] SOHAM CLARKE Attending Clinician Unavaillupillo Clarke MD, Soham Sethi Attending Clinician +[phone] Jennifer FRENCHP, Lion Attending Clinician +[phone] MARK HERNANDEZ Attending Clinician Unavailable Mark Hernandez MD Attending Clinician [phone] Ellen Carroll RN Attending Clinician + [phone] EMELIA GALLEGO Attending Clinician Unavailable Madison Akers Attending Clinician [phone] Emelia Gallego DO Attending Clinician [phone] Felipe Valdivia Attending Clinician +[phone] FELIPE ORTEGA Attending Clinician Unavailable Elliot HICKS, Gabriella Richard Attending Clinician + [phone] Nurse, Adc Pob Immunization Attending Clinician Unavailable David Clarke DO Attending Clinician [phone] Nikhil Trevizo Attending Clinician [phone] NIKHIL BLANTON Attending Clinician Unavailable Pcp, Patient Does Not Have A Attending Clinician Isabela BARRIGA, Mirna Topete Attending Clinician Unavailab Darnell Denny Attending Clinician + [phone] Jessy Siddiqui DO Attending Clinician +[phone] LION RODRIGUEZ Admitting Clinician Unavailable LUKE CLARKE Admitting Clinician Unavailable Trevor TAYLOR Admitting Clinician Unavailable ABRAHAM ORANTES Admitting Clinician Unavailable JOHNATHAN AVILA Admitting Clinician Unavail able UNDEFINED Admitting Clinician Unavailable STEPHIE HEWITT Admitting Clinician Unavailab HARESH Sharma Admitting Clinician Unav ailable [place], ClPrekatie Admitting Clinician Unavailab MANFRED Elizabeth Admitting Clinician Unavaila NATALI Roe Admitting Clinician Unavailab ADELAIDE Rader Admitting Clinician Unavailable HEMALATHA MORA Admitting Clinician Unavailable SOHAM CLARKE Admitting Clinician UnavailMARK [place] Admitting Clinician Unavailable Mark Hernandez MD Admitting Clinician [phone] Trevor TAYLOR Admitting Clinician Unavailable EMELIA GALLEGO Admitting Clinician Unavailable Emelia Gallego DO Admitting Clinician [phone] DARNELL HSU Admitting Clinician Unavailable Payers Payer Name Policy Type Policy Number Effective Date Expirati on Date Source AESTEPHAN W/ LUZ MARIA SOMMER [id number] 2023 00:00:00 S[employer] 94 9 [id number] 2024 00:00:00 [facility] INS PROGRAM 2 [id number] 2023 00:00:00 [employer] GENERIC [id number] 2021 00:00:00 [place] [address] [id number] [facility] Problems Condition Name Condition Details [...] adult exam Well adult exam Disease Active 4 00:00: 00 Luz Maria Espinosa Externa rona Class 1 obesity due to [...] 00 Luz Maria Ng - Externa rona Hypertensi on Hypertensi on Disease Active 10-06 00:00: 00 Luz Maira Ng - Externa rona GERD (gastroeso phageal reflux disease) GERD (gastroeso phageal reflux disease) Disease Active 10-06 00:00: 00 Luz Maria Ng - Externa rona BPH (benign prostatic hyperplasi a) BPH (benign prostatic hyperplasi a) Disease Active 10-06 00:00: 00 Luz Maria Ng - Externa rona Chronic back pain Chronic back pain Disease Active 10-06 00:00: 00 Luz Maria Ng - Externa rona Spondylosi s of lumbar spine Spondylosi s of lumbar spine Disease Active 10-06 00:00: 00 Luz Maria Ng - Externa rona Epigastric pain Epigastric pain Disease Active 10-11 00:00: 00 [facility] SBO (small bowel obstructio n) SBO (small bowel obstructio n) Disease Active 10-30 00:00: 00 [facility] Obesity (BMI 30-39.9) Obesity (BMI 30-39.9) Disease Active 10-30 00:00: 00 [facility] No known active problems No known active problems Disease [facility] [id number] Bladder mass Problem [facility] [id number] Microscopi c hematuria Problem [facility] [id number] Suprapubic pain Problem [facility] [id number] Lower urinary tract symptoms Problem [facility] Allergies, Adverse Reactions, Alerts Allergy Name Allergy Type Status Severity Reaction(s) Onset Date Inactive Date Treating Clinician Comments Source bee venom protein (honey bee) DA Active SV THROAT SWELL 2022-09 00:00: 00 [facility] Bee Venom Propensi ty to adverse reaction s Active Swelling 10-30 00:00: 00 Luz Maria Ng - Externa l BEE VENOM PROTEIN (HONEY BEE) DRUG INGREDI Active Swelling 10-30 00:00: 00 [facility] No Known Allergie s DA Active U 04-19 00:00: 00 [facility] NO KNOWN ALLERGIE S Drug Class Active [facility] Social History Social Habit Start Date Stop Date Quantity Comments Source Gender identity Kelsi Ng - External Sexual orientation Trevor Ng - External History of Occupation Luz Maria Ng - External History of tobacco use Cigarette Smoker Luz Maria triveid - External Alcoholic beverage intake 2025-01-02 00:00:00 [...] [facility] Sex 2022-09-11 16:00:01 2022-09-11 16:00:01 Male (finding) Luz Maria Hernandez - External Sex assigned at 1970 00:00:00 1970 00:00:00 Luz Maria Ng - External Smoking Status Start Date Stop Date Source Ex-smoker 2024-03-30 00:00:00 2024-03-30 00:00:00 Luz Maria Ng - External Occasional tobacco smoker 2023-05-20 00:00:00 Luz Maria Ng - External Never smoked tobacco [facility] Unknown if ever smoked [facility] Medications Ordered Medication Name Filled Medication Name Start Date Stop Date Current Medication? Ordering Clinician Indication Dosage Frequency Signature (SIG) Comments Components Source NaCl 0.9% (NS) bolus infusion 1,000 mL 04-07 03:45: 00 04-07 04:07 :00 No 1000mL at 999 mL/hr, 1,000 mL, IV Infusion, ONCE, 1 dose, On Carrie 04/06/25 at 2245, STAT [facility] NaCl 0.9% (NS) bolus infusion 1,000 mL 04-07 03:15: 00 04-07 03:12 :00 No 1000mL at 999 mL/hr, 1,000 mL, IV Infusion, ONCE, 1 dose, On Carrie 04/06/25 at 2215, STAT [facility] NaCl 0.9% (NS) bolus infusion 1,000 mL 04-07 01:45: 00 04-07 03:12 :00 No 1000mL at 999 mL/hr, 1,000 mL, IV Infusion, ONCE, 1 dose, On Carrie 04/06/25 at 2045, STAT [facility] ketorolac (TORADOL) injection 30 mg 04-07 00:45: 00 04-07 00:47 :00 No 30mg 30 mg, Slow IV Push, ONCE, 1 dose, [facility]06[facility]25 [facility] 1945[facility] MG oral Tablet 2-17 00:00: 00 Yes [id number] 10mg QD Take 1 tablet (10 mg total) by mouth daily. Luz Maria rea Pancrelipas e, Lip-Prot-Am yl, (Creon) [address]54-[address] units [address] Particles 2-05 00:00: 00 Yes [id number] 1{capsu le} Take 1 capsule by mouth 3 times daily (with meals). Luz Maria rea Tizanidine HCl 2 MG oral Tablet 10-19 00:00: 00 Yes [id number] 2mg QD Take 1 tablet (2 mg total) by mouth daily as needed for muscle spasms. Luz Maria rea ketorolac (TORADOL) injection 15 mg 06-08 01:00: 00 06-08 00:42 :00 No 15mg 15 mg, Slow IV Push, ONCE, 1 dose, On Thu06/07/24 at 2000, Routine [facility] HYDROcodone -acetaminop hen (NORCO 5) tablet 1 tablet 06-08 00:15: 00 06-08 00:41 :00 No 1{tbl} 1 tablet, Oral, ONCE, 1 dose, On Thu06/07/24 at 1915, [facility] aspirin chewable tablet 324 mg 06-07 23:30: 00 06-07 22:42 :00 No 324mg 324 mg, Oral, ONCE, 1 dose, On Thu06/07/24 at 1830, Routine [facility] NaCl 0.9% (NS) bolus infusion 1,000 mL 06-07 22:45: 00 06-08 00:45 :00 No 1000mL at 999 mL/hr, 1,000 mL, IV Infusion, ONCE, 1 dose, On Thu06/07/24 at 1745, VASILIY [facility] nitroglycer in (NITROSTAT) sublingual tablet 0.4 mg 06-07 21:58: 38 Yes .4mg 0.4 mg, Sublingual , Q5MIN PRN, 3 doses, Starting on Thu06/07/24 at 1658, Until Discontinu ed, VASILIY, Chest pain [facility] diclofenac 50 mg tablet 06-07 00:00: 00 06-18 04:59 :00 No [id number] 50mg Take 1 tablet by mouth in the morning and 1 tablet at noon and 1 tablet in the evening. Do all this for 10 days. [facility] acetaminoph en-codeine 300-30 mg tablet 06-07 00:00: 00 06-13 04:59 :00 No [id number] 1{tbl} Take 1 tablet by mouth every 6 (six) hours as needed for Pain (scale 7-10) for up to 5 days. Indication s: acute pain [facility] Lisinopril 10 MG oral Tablet 05-09 00:00: 00 Yes [id number] 10mg QD Take 1 tablet (10 mg total) by mouth daily. Luz Maria rea Alprazolam (Xanax) 0.25 MG oral Tablet 04-11 00:00: 00 07-20 00:00 :00 No [id number] 107 Take 1 table 45 mins before MRI and 1 tablet just before MRI. Luz Maria rea diphenhydrA MINE:lidoca ine 2% viscous:maa lox 1:1:1 (FIRST-MOUT HWASH BLM) oral suspension 15 mL 04-02 16:30: 00 04-02 15:34 :00 No 15mL 15 mL, Oral (Swish & Swallow), ONCE, 1 dose, On 04/02/24 at 1130, Routine [facility] famotidine (PEPCID (PF)) injection 20 mg 04-02 15:30: 00 04-02 15:34 :00 No 20mg 20 mg, Slow IV Push, ONCE, 1 dose, On 04/02/24 at 1030, VASILIY [facility] NaCl 0.9% (NS) bolus infusion 2,000 mL 04-02 15:15: 00 04-02 17:55 :00 No 2000mL at 999 mL/hr, 2,000 mL, IV Infusion, ONCE, 1 dose, On 04/02/24 at 1015, STAT [facility] ondansetron (ZOFRAN (PF)) injection 4 mg 04-02 15:15: 00 04-02 14:27 :00 No 4mg 4 mg, Slow IV Push, ONCE, 1 dose, On 04/02/24 at 1015, VASILIY [facility] iopamidol (ISOVUE 370-500 mL) injection 90 mL 04-02 14:45: 00 04-02 15:00 :00 No [id number] 90mL 90 mL, Intravenou s, ONCE, 1 dose, On 04/02/24 at 1000, Routine [facility] morpHINE (4 mg/mL) injection 4 mg 04-02 14:15: 00 04-02 14:27 :00 No 4mg 4 mg, Slow IV Push, ONCE, 1 dose, On 04/02/24 at 0915, STAT [facility] sucralfate 1 gram tablet 04-02 00:00: 00 Yes [id number] 1g Take 1 tablet by mouth before meals and at bedtime. [facility] Sod Picosulfate -Mag Ox-Cit Acd (Clenpiq) 10-3.5-12 MG-GM -GM/175ML oral Solution 03-30 00:00: 00 Yes [id number] Instructio ns provided to patient. Follow instructio ns provided by provider.. Luz Maria rea Omeprazole 40 MG oral Delayed Release Capsule 03-30 00:00: 00 Yes [id number] 40mg QD Take 1 capsule (40 mg total) by mouth daily. Luz Maria rea NaCl 0.9% (NS) bolus infusion 1,000 mL 02-20 03:45: 00 02-20 04:50 :00 No 1000mL at 999 mL/hr, 1,000 mL, IV Infusion, ONCE, 1 dose, On 02/20/24 at 2245, VASILIY [facility] FENTanyl PF (SUBLIMAZE (PF)) injection 50 mcg 02-20 03:00: 00 02-20 03:07 :00 No 50ug 50 mcg, Slow IV Push, ONCE, 1 dose, On 02/20/24 at 2200, Routine [facility] metoclopram jerilyn HCl (REGLAN) injection 10 mg 02-20 03:00: 00 02-20 03:07 :00 No 10mg 10 mg, Slow IV Push, ONCE, 1 dose, On 02/20/24 at 2200, VASILIY [facility] bisacodyL (DULCOLAX) tablet 5 mg 02-20 03:00: 00 02-20 03:07 :00 No 5mg 5 mg, Oral, ONCE NOW, 1 dose, On 02/20/24 at 2200, Routine [facility] bisacodyL (DULCOLAX, BISACODYL,) 5 mg EC tablet 02-19 00:00: 00 Yes [id number] 5mg Take 1 tablet by mouth once daily as needed for Constipati on. [facility] dicyclomine 20 mg tablet 02-19 00:00: 00 Yes [id number] 20mg Take 1 tablet by mouth 4 (four) times daily as needed for Abdominal pain. [facility] Ketorolac Tromethamin e 10 MG oral Tablet 12-16 15:16: 47 12-16 00:00 :00 No 10mg Q.25D Take 1 tablet (10 mg total) by mouth every 6 hours as needed for pain FOR PAIN. Luz Maria rea Cyclobenzap rine HCl 10 MG oral Tablet 12-16 00:00: 00 10-19 00:00 :00 No [id number] 10mg QD Take 1 tablet (10 mg total) by mouth nightly as needed for muscle spasms. Luz Maria rea HYDROcodone -acetaminop hen (NORCO) 10-325 mg tablet 1 tablet 12-09 04:45: 00 12-09 03:57 :00 No 1{tbl} 1 tablet, Oral, ONCE NOW, 1 dose, On Thu12/09/23 at 2345, Routine [facility] iopamidol (ISOVUE 370-500 mL) injection 100 mL 12-09 03:30: 00 12-09 03:30 :00 No [id number] 100mL 100 mL, Intravenou s, ONCE, 1 dose, On Thu12/09/23 at 2230, Routine [facility] ketorolac (TORADOL) injection 30 mg 12-09 03:00: 00 12-09 02:04 :00 No 30mg 30 mg, Slow IV Push, ONCE, 1 dose, On Thu12/09/23 at 2200, Routine [facility] Methocarbam ol 750 MG oral Tablet 12-09 00:00: 00 12-16 00:00 :00 No 750mg Q.25D Take 1 tablet (750 mg total) by mouth every 6 hours as needed FOR PAIN. Luz Maria rea ketorolac 10 mg tablet 12-08 00:00: 00 Yes [id number] 10mg Take 1 tablet by mouth every 6 (six) hours as needed for Pain (scale 7-10). [facility] methocarbam oL 750 mg tablet 12-08 00:00: 00 Yes [id number] 750mg Take 1 tablet by mouth every 6 (six) hours as needed for Pain (scale 7-10) (MUSCLE SPASM). [facility] Ketorolac Tromethamin e (TORADOL IM) 12-05 00:00: 00 12-16 00:00 :00 No Luz Maria rea Lisinopril 10 MG oral Tablet 10-06 14:45: 28 10-06 00:00 :00 No 10mg Take 1 tablet (10 mg total) by mouth daily. Luz Maria rea Gabapentin 300 MG oral Capsule 10-06 00:00: 00 Yes [id number] 300mg Q.5D Take 1 capsule (300 mg total) by mouth 2 times daily as needed. [facility]z Maria rea Lisinopril 10 MG oral Tablet 10-06 00:00: 00 Yes [id number] 10mg QD Take 1 tablet (10 mg total) by mouth daily. Luz Maria rea Amlodipine Besylate 10 MG oral Tablet 10-06 00:00: 00 Yes [id number] 10mg QD Take 1 tablet (10 mg total) by mouth daily. Luz Maria rea Famotidine (PEPCID) 20 MG oral tablet 10-06 00:00: 00 Yes [id number] 20mg Q.5D Take 1 tablet (20 mg total) by mouth 2 times daily. Luz Maria rea Pancrelipas e, Lip-Prot-Am yl, (Creon) [address]-[address] Particles 10-06 00:00: 00 10-19 00:00 :00 No [id number] 1{capsu le} Take 1 capsule by mouth 3 times daily (with meals). Luz Maria rea Pantoprazol e Sodium 20 MG oral Tablet Delayed Response 10-06 00:00: 00 03-30 00:00 :00 No [id number] 20mg Take 1 tablet (20 mg total) by mouth every morning. [facility] Maria rea HYDROcodone -acetaminop hen (NORCO) 10-325 mg tablet 1 tablet 2022-09 06:45: 00 08-04 05:38 :00 No 1{tbl} 1 tablet, Oral, ONCE NOW, 1 dose, On Thu08/04/23 at 0045, [facility]IL[facility] methocarbam oL (ROBAXIN) tablet 1,000 mg 2022-09 05:45: 00 08-04 05:38 :00 No 1000mg 1,000 mg, Oral, ONCE, 1 dose, On Thu08/03/23 at 2345, VASILIY [facility] FENTanyl PF (SUBLIMAZE (PF)) injection 75 mcg 2022-09 05:00: 00 08-04 04:14 :00 No 75ug 75 mcg, Slow IV Push, ONCE, 1 dose, On Thu08/03/23 at 2300, Routine [facility] NaCl 0.9% (NS) IV infusion 1,000 mL 2022-09 04:45: 00 08-04 05:39 :00 No 1000mL at 999 mL/hr, Intravenou s, ONCE, 1 dose, On Thu08/03/23 at 2245, Routine [facility] methocarbam oL 500 mg tablet 2022-09 00:00: 00 Yes [id number] 500mg Take 1 tablet by mouth every 6 (six) hours as needed (MUSCLE SPASM). [facility] HYDROcodone -acetaminop hen (NORCO) 10-325 mg tablet 2022-09 00:00: 00 08-11 05:59 :00 No [id number] 1{tbl} Take 1 tablet by mouth every 6 (six) hours as needed for Pain (scale 7-10) for up to 7 days. Indication s: acute pain [facility] diphenhydrA MINE (BENADRYL) injection 25 mg 2022-09 19:30: 00 07-25 18:34 :00 No 25mg 25 mg, Slow IV Push, ONCE, 1 dose, On 07/25/23 at 1330, STAT [facility] metoclopram jerilyn HCl (REGLAN) injection 10 mg 2022-09 19:30: 00 07-25 18:34 :00 No 10mg 10 mg, Slow IV Push, ONCE, 1 dose, On 07/25/23 at 1330, VASILIY [facility] morpHINE (4 mg/mL) injection 4 mg 2022-09 17:30: 00 07-25 16:43 :00 No 4mg 4 mg, Slow IV Push, ONCE, 1 dose, On 07/25/23 at 1130, STAT [facility] ondansetron (ZOFRAN (PF)) injection 4 mg 2022-09 17:15: 00 07-25 16:43 :00 No 4mg 4 mg, Slow IV Push, ONCE, 1 dose, On 07/25/23 at 1115, VASILIY [facility] NaCl 0.9% (NS) bolus infusion 1,000 mL 2022-09 17:15: 00 07-25 18:54 :00 No 1000mL at 999 mL/hr, 1,000 mL, IV Infusion, ONCE, 1 dose, On 07/25/23 at 1115, STAT [facility] metoclopram jerilyn HCl 10 mg tablet 2022-09 00:00: 00 Yes [id number] 10mg Take 1 tablet by mouth every 6 (six) hours. [facility] sodium chloride (NS) injection 5 mL 2022-09 19:45: 30 Yes 5mL 5 mL, Intravenou s, PRN, Starting on Thu07/24/23 at 1345, Until Discontinu ed, Routine, IV line flushing [facility] dicyclomine 20 mg tablet 2022-09 00:00: 00 02-19 00:00 :00 No [id number] 20mg Take 1 tablet by mouth 4 (four) times daily as needed for Abdominal pain. [facility] ketorolac (TORADOL) injection 15 mg 2022-09 0 03:15: 00 07-12 02:32 :00 No 15mg 15 mg, Slow IV Push, ONCE, 1 dose, On 07/11/23 at 2215, Routine [facility] methocarbam oL (ROBAXIN) tablet 1,000 mg 2022-09 0 02:30: 00 07-12 02:32 :00 No 1000mg 1,000 mg, Oral, ONCE, 1 dose, On 07/11/23 at 2130, VASILIY [facility] famotidine (PEPCID (PF)) injection 20 mg 2022-09 02:30: 00 07-12 02:32 :00 No 20mg 20 mg, Slow IV Push, ONCE, 1 dose, On 07/11/23 at 2130, VASILIY [facility] aspirin chewable tablet 324 mg 2022-09 02:15: 00 07-12 02:31 :00 No 324mg 324 mg, Oral, ONCE, 1 dose, On 07/11/23 at 2115, STAT [facility] HYDROcodone -acetaminop hen 5-325 mg tablet 2022-09 00:00: 00 07-15 04:59 :00 No [id number] 1{tbl} Take 1 tablet by mouth every 4 (four) hours as needed for Pain (scale 7-10) for up to 3 days. Indication s: acute pain [facility] omeprazole 40 mg capsule 2022-09 00:00: 00 Yes [id number] 40mg Take 1 capsule by mouth in the morning and 1 capsule in the evening. [facility] peg-electro lyte soln 236-22.74-6 .74 -5.86 gram solution 2022-09 00:00: 00 Yes [id number] Take as directed before colonoscop y [facility] Lisinopril 10 MG oral Tablet [...] 1 dose, On 07/03/23 at 0845, VASILIY [facility] famotidine (PEPCID (PF)) injection 20 mg 2022-09 13:00: 00 07-03 12:49 :00 No 20mg 20 mg, Slow IV Push, ONCE, 1 dose, On Thu07/03/23 at 0800, VASILIY [facility] iohexol (OMNIPAQUE 350 BULK-100 mL) injection 80 mL 2022-09 10:40: 00 07-03 10:40 :00 No [id number] 80mL 80 mL, Intravenou s, ONCE, 1 dose, On Thu07/03/23 at 0545, Routine [facility] ondansetron (ZOFRAN (PF)) injection 4 mg 2022-09 10:15: 00 07-03 10:20 :00 No 4mg 4 mg, Slow IV Push, ONCE, 1 dose, On Thu07/03/23 at 0515, VASILIY [facility] morpHINE (4 mg/mL) injection 4 mg 2022-09 10:15: 00 07-03 10:20 :00 No 4mg 4 mg, Slow IV Push, ONCE, 1 dose, On Thu07/03/23 at 0515, STAT [facility] HYDROcodone -acetaminop hen 5-325 mg tablet 2022-09 00:00: 00 Yes [id number] 1{tbl} Take 1 tablet by mouth every 4 (four) hours as needed for Pain (scale 4-6) for up to 10 doses. Indication s: acute pain [facility] Pantoprazol e Sodium 20 MG oral Tablet Delayed Response 2022-09 00:00: 00 10-06 00:00 :00 No 20mg Take 1 tablet (20 mg total) by mouth every morning. [facility] famotidine (PEPCID) 20 mg tablet 2022-09 00:00: 00 07-10 00:00 :00 No [id number] 20mg Take 1 tablet by mouth in the morning and 1 tablet in the evening. [facility] Lisinopril 10 MG oral Tablet 906 15:08: 12 Yes 10mg Take 1 tablet (10 mg total) by mouth daily. [facility] re[facility] Tamsulosin HCl 0.4 MG oral Capsule 9-06 00:00: 00 Yes .4mg Take 1 capsule (0.4 mg total) by mouth every night at bedtime. [facility] iopamidol (ISOVUE 370-500 mL) injection 80 mL 05-08 03:15: 00 05-08 02:12 :00 No [id number] 80mL 80 mL, Intravenou s, ONCE, 1 dose, On Carrie 05/07/23 at 2215, Routine [facility] morpHINE (4 mg/mL) injection 4 mg 05-08 01:00: 00 05-08 01:38 :00 No 4mg 4 mg, Slow IV Push, ONCE, 1 dose, On Carrie 05/07/23 at 2000, [facility] NaCl 0.9% (NS) bolus infusion 1,000 mL 05-08 01:00: 00 05-08 04:22 :00 No 1000mL at 999 mL/hr, 1,000 mL, IV Infusion, ONCE, 1 dose, On Carrie 05/07/23 at 2000, [facility] NaCl 0.9% (NS) bolus infusion 1,000 mL 05-02 05:15: 00 05-02 05:29 :00 No 1000mL at 999 mL/hr, 1,000 mL, IV Infusion, ONCE, 1 dose, On 05/02/23 at 0015, [facility] famotidine (PEPCID (PF)) injection 20 mg 05-02 04:15: 00 05-02 04:21 :00 No 20mg 20 mg, Slow IV Push, ONCE, 1 dose, On Thu05/01/23 at 2315, [facility] maalox:diph enhydrAMINE :lidocaine 2 % viscous 1:1:1 ([facility] oral suspension 15 mL 05-02 04:15: 00 05-02 04:21 :00 No 15mL 15 mL, Oral, ONCE, 1 dose, On Thu05/01/23 at 2315, VASILIY [facility] ondansetron (ZOFRAN (PF)) injection 4 mg 05-02 04:15: 00 05-02 03:18 :00 No 4mg 4 mg, Slow IV Push, ONCE, 1 dose, On Thu05/01/23 at 2315, VASILIY [facility] NaCl 0.9% (NS) bolus infusion 1,000 mL 05-02 04:15: 00 05-02 04:15 :00 No 1000mL at 999 mL/hr, 1,000 mL, IV Infusion, ONCE, 1 dose, On Thu05/01/23 at 2315, STAT [facility] metoclopram jerilyn HCl 10 mg tablet 05-01 00:00: 00 Yes [id number] 10mg Take 1 tablet by mouth every 6 (six) hours. [facility] pantoprazol e (PROTONIX) 20 mg EC tablet 05-01 00:00: 00 07-03 00:00 :00 No [id number] 20mg Take 1 tablet by mouth in the morning. [facility] iopamidol (ISOVUE 370-500 mL) injection 70 mL 04-22 16:21: 00 04-22 16:21 :00 No [id number] 70mL 70 mL, Intravenou s, ONCE, 1 dose, On Thu04/22/23 at 1145, Routine [facility] haloperidol lactate (HALDOL) injection 2.5 mg 04-22 16:00: 00 04-22 16:01 :00 No 2.5mg 2.5 mg, Intravenou s, ONCE, 1 dose, On Thu04/22/23 at 1100, STAT [facility] NaCl 0.9% (NS) bolus infusion 500 mL 04-22 14:45: 00 04-22 15:30 :00 No 500mL at 999 mL/hr, 500 mL, IV Infusion, ONCE, 1 dose, On Thu04/22/23 at 0945, STAT [facility] maalox:diph enhydrAMINE :lidocaine 2 % viscous 1:1:1 ([facility]) oral suspension 15 mL 04-22 13:00: 00 04-22 12:55 :00 No 15mL 15 mL, Oral, ONCE, 1 dose, On Thu04/22/23 at 0800, Routine [facility] NaCl 0.9% (NS) IV infusion 1,000 mL 04-22 12:45: 00 Yes 1000mL at 999 mL/hr, Intravenou s, CONTINUOUS , Starting on Thu04/22/23 at 0745, Until Discontinu ed, Routine [facility] NaCl 0.9% (NS) bolus infusion 1,000 mL 04-22 10:30: 00 04-22 11:30 :00 No 1000mL at 999 mL/hr, 1,000 mL, IV Infusion, ONCE, 1 dose, On Thu04/22/23 at 0530, STAT [facility] ketorolac (TORADOL) injection 30 mg 04-22 10:30: 00 04-22 09:21 :00 No 30mg 30 mg, Slow IV Push, ONCE, 1 dose, On Thu04/22/23 at 0530, Routine [facility] diphenhydrA MINE (BENADRYL) injection 25 mg 04-22 09:30: 00 04-22 09:21 :00 No 25mg 25 mg, Slow IV Push, ONCE, 1 dose, On Thu04/22/23 at 0430, STAT [facility] metoclopram jerilyn HCl (REGLAN) injection 10 mg 04-22 09:30: 00 04-22 09:21 :00 No 10mg 10 mg, Slow IV Push, ONCE, 1 dose, On Thu04/22/23 at 0430, [facility]IL[facility] NaCl 0.9% (NS) bolus infusion 1,000 mL 04-22 09:15: 00 04-22 10:28 :00 No 1000mL at 999 mL/hr, 1,000 mL, IV Infusion, ONCE, 1 dose, On Thu04/22/23 at 0415, STAT [facility] ondansetron (ZOFRAN) 4 mg tablet 04-22 00:00: 00 Yes [id number] 05 4mg Take 1 tablet by mouth every 8 (eight) hours as needed for Nausea and Vomiting (N/V). [facility] proMETHazin e 25 mg tablet 04-22 00:00: 00 Yes [id number] 25mg Take 1 tablet by mouth every 6 (six) hours as needed for Nausea and Vomiting (N/V) or N/V unresponsi ve to Ondansetro n. [facility] Tramadol HCl (ULTRAM) 50 MG [...] dose, On Carrie 04/16/23 at 0915, Routine [facility] famotidine (PEPCID (PF)) injection 20 mg 04-16 13:30: 00 04-16 12:33 :00 No 20mg 20 mg, Slow IV Push, ONCE NOW, 1 dose, On Carrie 04/16/23 at 0830, VASILIY [facility] dicyclomine (BENTYL) injection 20 mg 04-16 13:30: 00 04-16 12:34 :00 No 20mg 20 mg, Intramuscu lar, ONCE NOW, 1 dose, On Carrie 04/16/23 at 0830, Routine [facility] enalaprilat (VASOTEC I.V.) injection 1.25 mg 04-16 13:15: 00 04-16 13:17 :00 No 1.25mg 1.25 mg, Slow IV Push, ONCE, 1 dose, On Carrie 04/16/23 at 0815, STAT [facility] lactulose (CEPHULAC) solution 45 mL 04-16 13:15: 00 04-16 13:18 :00 No 45mL 45 mL, Oral, ONCE, 1 dose, On [facility] 04/16/23 at 0815, VASILIY [facility] ketorolac (TORADOL) injection 30 mg 04-16 13:15: 00 04-16 12:32 :00 No 30mg 30 mg, Slow IV Push, ONCE NOW, 1 dose, On Carrie 04/16/23 at 0815, VASILIY [facility] NaCl 0.9% (NS) bolus infusion 1,000 mL 04-16 13:15: 00 04-16 13:54 :00 No 1000mL at 999 mL/hr, 1,000 mL, IV Piggyback, ONCE, 1 dose, On [facility] 04/16/23 at 0815, STAT [facility] lipase-prot ease-amylas e (CREON) 3,000-9,500 - 15,000 unit capsule 04-16 00:00: 00 Yes [id number] 3000U Take 1 capsule by mouth in the morning and 1 capsule at noon and 1 capsule in the evening. Take with meals. [facility] hyoscyamine sulfate (LEVSIN/SL) 0.125 mg sublingual tablet 04-16 00:00: [id number] 2 tablets under the tongue every 6 (six) hours as needed (Abdominal pain or cramping). [facility] bisacodyL 5 mg EC tablet 04-16 00:00: 00 Yes [id number] 5mg Take 1 tablet by mouth once daily as needed for Constipati on. [facility] Famotidine (PEPCID) 20 MG oral tablet 04-16 00:00: 00 10-06 00:00 :00 No 20mg Take 1 tablet (20 mg total) by mouth 2 times daily. [facility] Lorazepam 1 MG oral Tablet 04-05 00:00: 00 10-06 00:00 :00 No 1mg [id number] 3D Take 1 tablet (1 mg total) by mouth every 8 hours as needed. [facility] iopamidol (ISOVUE 370-500 mL) injection 100 mL 04-01 07:45: 00 04-01 06:58 :00 No [id number] 100mL 100 mL, Intravenou s, ONCE, 1 dose, On Thu04/01/23 at 0245, Routine [facility] famotidine (PEPCID (PF)) injection 20 mg 04-01 05:45: 00 04-01 06:09 :00 No 20mg 20 mg, Slow IV Push, ONCE, 1 dose, [facility]01/23 [facility] 0045[facility] (SUBLIMAZE (PF)) injection 50 mcg 04-01 05:38: 00 04-01 06:10 :00 No 50ug 50 mcg, Slow IV Push, ONCE, 1 dose, On Thu04/01/23 at 0045, [facility] NaCl 0.9% (NS) IV infusion 1,000 mL 04-01 05:05: 00 04-01 06:30 :00 No 1000mL at 999 mL/hr, Intravenou s, ONCE, 1 dose, On Thu04/01/23 at 0015, [facility] ondans[facility] (ZOFRAN (PF)) injection 4 mg 04-01 05:05: 00 04-01 05:08 :00 No 4mg 4 mg, Slow IV Push, ONCE, 1 dose, On Thu04/01/23 at 0015, [facility] sodium chloride (NS) injection 5 mL 04-01 05:04: 36 Yes 5mL 5 mL, Intravenou s, PRN, Starting on Thu04/01/23 at 0004, Until Discontinu ed, Routine, IV line flushing [facility] ondansetron 4 mg disintegrat ing tablet 04-01 00:00: 00 Yes [id number] 4mg Take 1 tablet by mouth every 8 (eight) hours as needed for Nausea and Vomiting (N/V). [facility] traMADoL 50 mg tablet 04-01 00:00: 00 04-09 04:59 :00 No [id number] 50mg Take 1 tablet by mouth every 8 (eight) hours as needed for Pain (scale 4-6) for up to 7 days. Indication s: acute pain [facility] predniSONE (DELTASONE) tablet 40 mg 12-09 07:15: 00 12-09 06:33 :00 No 40mg 40 mg, Oral, ONCE, 1 dose, On Thu12/09/22 at 0215, [facility] traMADoL (ULTRAM) tablet 50 mg 12-09 07:15: 12-09 06:33 :00 No 50mg 50 mg, Oral, ONCE, 1 dose, On Thu12/09/22 at 0215, [facility] (ISOVUE 370-500 mL) injection 100 mL 12-09 06:15: 12-09 06:15 :00 No [id number] 100mL 100 mL, Intravenou s, ONCE, 1 dose, On Thu12/09/22 at 0115, Routine [facility] ketorolac (TORADOL) injection 30 mg 12-09 06:15: 12-09 05:30 :00 No 30mg 30 mg, Slow IV Push, ONCE, 1 dose, On Thu12/09/22 at 0115, [facility] mor[facility]INE (4 mg/mL) injection 4 mg 12-09 06:15: 00 12-09 05:30 :00 No 4mg 4 mg, Slow IV Push, ONCE, 1 dose, On Thu12/09/22 at 0115, [facility] NaCl 0.9% (NS) bolus infusion 1,000 mL 12-09 06:15: 00 12-09 06:33 :00 No 1000mL at 999 mL/hr, 1,000 mL, IV Infusion, ONCE, 1 dose, On Thu12/09/22 at 0115, V[facility]ILIY [facility] ondansetron (ZOFRAN (PF)) injection 8 mg 12-09 05:30: 00 12-09 05:30 :00 No 8mg 8 mg, Slow IV Push, ONCE, 1 dose, On Thu12/09/22 at 0030, VASILIY [facility] traMADoL 50 mg tablet 12-09 00:00: 00 Yes [id number] 50mg Take 1 tablet by mouth every 6 (six) hours as needed (pain). Indication s: acute pain [facility] ondansetron 4 mg tablet 12-09 00:00: 00 Yes [id number] 1-2 tablets every 8 hours as needed for nausea [facility] predniSONE 20 mg tablet 12-09 00:00: 00 12-17 04:59 :00 No [id number] 40mg Take 2 tablets by mouth in the morning for 7 days. [facility] iopamidol (ISOVUE 370-500 mL) injection 100 mL 11-25 06:15: 00 11-25 06:15 :00 No [id number] 100mL 100 mL, Intravenou s, ONCE, 1 dose, On Thu11/25/22 at 0115, Routine [facility] NaCl 0.9% (NS) bolus infusion 1,000 mL 11-25 06:00: 00 11-25 07:00 :00 No 1000mL at 999 mL/hr, 1,000 mL, IV Infusion, ONCE, 1 dose, On Thu11/25/22 at 0100, STAT [facility] FENTanyl PF (SUBLIMAZE (PF)) injection 50 mcg 11-25 05:45: 00 11-25 05:03 :00 No 50ug 50 mcg, Slow IV Push, ONCE, 1 dose, On Thu11/25/22 at 0045, Routine [facility] ondansetron (ZOFRAN (PF)) injection 4 mg 11-25 05:00: 00 11-25 05:04 :00 No 4mg 4 mg, Slow IV Push, ONCE, 1 dose, On Thu11/25/22 at 0000, VASILIY [facility] Pancrelipas e, Lip-Prot-Am yl, (Creon) 52316-19876 units oral Cap DR Particles 10-13 00:00: 00 10-06 00:00 :00 No [facility] Maria Callahana l lipase-prot ease-amylas e (CREON) 12,000-38,0 00 -60,000 unit capsule 2 capsule 10-12 23:00: 00 Yes 2{capsu le} 2 capsule, Oral, TID MEALS, First dose on Thu10/12/22 at 1700, Until Discontinu ed, Routine [facility] lisinopriL 10 mg tablet 10-12 17:56: 15 Yes 10mg Take 10 mg by mouth in the morning. [facility] meloxicam (MOBIC) tablet 7.5 mg 10-12 17:15: 00 Yes 7.5mg 7.5 mg, Oral, DAILY, First dose on Thu10/12/22 at 1115, Until Discontinu ed, Routine [facility] omeprazole (PRILOSEC) capsule 20 mg 10-12 15:00: 00 Yes 20mg 20 mg, Oral, DAILY, First dose on Thu10/12/22 at 0900, Until Discontinu ed, Routine [facility] Pantoprazol e Sodium 40 MG oral Tablet Delayed Response 10-12 00:00: 00 10-06 00:00 :00 No Luz aMria Callahana l lipase-prot ease-amylas e 12,000-38,0 00 -60,000 unit capsule 10-12 00:00: 00 01-11 04:59 :00 No [id number] 2{capsu le} Take 2 capsules by mouth in the morning and 2 capsules at noon and 2 capsules in the evening. Take with meals. Do all this for 90 days. Do not crush or chew. [facility] meloxicam 7.5 mg tablet 10-12 00:00: 00 10-27 05:59 :00 No [id number] 7.5mg Take 1 tablet by mouth once daily as needed for Pain (scale 7-10) for up to 14 days. [facility] HYDROcodone -acetaminop hen 5-325 mg tablet 10-12 00:00: 00 10-20 05:59 :00 No [id number] 1{tbl} Take 1 tablet by mouth every 6 (six) hours as needed for Pain (scale 4-6) for up to 7 days. Indication s: acute pain [facility] amLODIPine (NORVASC) tablet 10 mg 10-11 20:00: 00 Yes 10mg 10 mg, Oral, DAILY, First dose on 10/11/22 at 1400, Until Discontinu ed, Routine [facility] lactated ringers IV infusion 1,000 mL 10-11 20:00: 00 10-12 14:03 :28 No 1000mL at 125 mL/hr, 1,000 mL, IV Infusion, CONTINUOUS , Starting on 10/11/22 at 1400, Until 10/12/22 at 0803, Routine [facility] HYDROcodone -acetaminop hen (NORCO 5) 5-325 mg tablet 1 tablet 10-11 19:35: 19 10-13 19:34 :19 No 1{tbl} 1 tablet, Oral, Q6HPRN, Starting on 10/11/22 at 1335, Until 10/13/22 at 1334, Routine, Pain (scale 4-6) [facility] acetaminoph en (TYLENOL) tablet 650 mg 10-11 19:35: 16 Yes 650mg 650 mg, Oral, Q6HPRN, Starting on 10/11/22 at 1335, Until Discontinu ed, Routine, Pain (scale 1-3) [facility] NaCl 0.9% (NS) bolus infusion 1,000 mL 10-11 16:45: 00 10-11 16:02 :00 No 1000mL at 999 mL/hr, 1,000 mL, Intravenou s, ONCE, 1 dose, On 10/11/22 at 1045, STAT [facility] ondansetron (ZOFRAN (PF)) injection 4 mg 10-11 16:15: 00 10-11 16:15 :00 No 4mg 4 mg, Slow IV Push, ONCE, 1 dose, On 10/11/22 at 1015, [facility] morpHINE (4 mg/mL) injection 4 mg 10-11 16:15: 00 10-11 16:14 :00 No 4mg 4 mg, Slow IV Push, ONCE, 1 dose, On 10/11/22 at 1015, STAT [facility] iopamidol (ISOVUE 370-500 mL) injection 120 mL 10-11 15:45: 00 10-11 14:43 :00 No [id number] 120mL 120 mL, Intravenou s, ONCE, 1 dose, On 10/11/22 at 0945, Routine [facility] FENTanyl PF (SUBLIMAZE (PF)) injection 50 mcg 10-09 08:30: 00 10-09 07:23 :00 No 50ug 50 mcg, Slow IV Push, ONCE, 1 dose, On Carrie 10/09/22 at 0230, Routine [facility] iopamidol (ISOVUE 370-500 mL) injection 100 mL 10-09 07:15: 00 10-09 07:15 :00 No [id number] 100mL 100 mL, Intravenou s, ONCE, 1 dose, On Carrie 10/09/22 at 0115, Routine [facility] ketorolac (TORADOL) injection 30 mg 10-09 06:15: 00 10-09 05:25 :00 No 30mg 30 mg, Slow IV Push, ONCE, 1 dose, On Carrie 10/09/22 at 0015, Routine [facility] ondansetron (ZOFRAN) 4 mg tablet 10-09 00:00: 00 Yes [id number] 4mg Take 1 tablet by mouth every 8 (eight) hours as needed for Nausea and Vomiting (N/V). [facility] traMADoL (ULTRAM) 50 mg tablet 10-09 00:00: 00 Yes [id number] 50mg Take 1 tablet by mouth every 6 (six) hours as needed for Pain (scale 7-10). Indication s: acute pain [facility] ketorolac (TORADOL) injection 30 mg 2021-09 17:15: 08-20 16:35 :00 No 30mg 30 mg, Intramuscu lar, ONCE, 1 dose, On Thu08/20/22 at 1115, [facility] Amlodipine Besylate 10 MG oral Tablet 2021-09 00:00: 00 10-06 00:00 :00 No [facility] morpHINE (4 mg/mL) injection 4 mg 06-09 13:15: 00 06-09 12:54 :00 No 4mg 4 mg, Slow IV Push, ONCE, 1 dose, On Thu06/09/22 at 0815, [facility] ketorolac (TORADOL) injection 30 mg 06-09 13:15: 00 06-09 12:55 :00 No 30mg 30 mg, Slow IV Push, ONCE, 1 dose, On Thu06/09/22 at 0815, [facility] iopamidol (ISOVUE 370-500 mL) injection 60 mL 06-09 13:07: 00 06-09 13:08 :00 No [id number] 60mL 60 mL, Intravenou s, ONCE, 1 dose, On Thu06/09/22 at 0815, Routine [facility] ondansetron (ZOFRAN (PF)) injection 4 mg 06-09 12:30: 00 06-09 12:54 :00 No 4mg 4 mg, Slow IV Push, ONCE, 1 dose, On Thu06/09/22 at 0730, [facility] dexamethaso ne sod phos PF injection 10 mg 06-09 12:30: 00 06-09 12:55 :00 No 10mg 10 mg, Slow IV Push, ONCE, 1 dose, On Thu06/09/22 at 0730, 1 mL [facility] traMADoL 50 mg tablet 06-09 00:00: 00 10-11 00:00 :00 No [id number] 50mg Take 1 tablet by mouth every 6 (six) hours as needed (pain). Indication s: acute pain [facility] lidocaine 5 % (700 mg/patch) patch 06-09 00:00: 00 10-11 00:00 :00 No [id number] Apply one patch to most painful area up to 12 hours a day as needed for pain. PHARMACIST : dispense one box [facility] predniSONE 20 mg tablet 06-09 00:00: 00 06-17 04:59 :00 No [id number] 40mg Take 2 tablets by mouth in the morning for 7 days. [facility] Dose Unknown 02-03 00:00: 00 No Dose Unknown 02-03 00:00: 00 No lisinopriL (PRINIVIL,Z ESTRIL) tablet 20 mg 11-01 03:00: 00 Yes 20mg 20 mg, Oral, QHS, First dose (after last modificati on) on Thu10/31/21 at 2100, Until Discontinu ed, Routine [facility] lisinopriL 20 mg tablet 11-01 00:00: 00 12-02 04:59 :00 No [id number] 20mg Take 1 tablet by mouth at bedtime for 30 days. [facility] lactated ringers IV infusion 1,000 mL 10-31 19:00: 00 Yes 1000mL at 75 mL/hr, 1,000 mL, IV Infusion, CONTINUOUS , Starting on Carrie 10/31/21 at 1300, Until Discontinu ed, Routine [facility] amLODIPine (NORVASC) tablet 10 mg 10-31 15:00: 00 Yes 10mg 10 mg, Oral, DAILY, First dose on Thu10/31/21 at 0900, Until Discontinu ed, Routine [facility] enoxaparin (LOVENOX) injection 40 mg 10-31 15:00: 00 Yes 40mg 40 mg, Subcutaneo us, DAILY, First dose on Thu10/31/21 at 0900, Until Discontinu ed, Routine [facility] lactated ringers IV infusion 1,000 mL 10-31 07:00: 00 10-31 18:45 :24 No 1000mL at 150 mL/hr, 1,000 mL, IV Infusion, CONTINUOUS , Starting on Thu10/31/21 at 0100, Until Thu10/31/21 at 1245, Routine [facility] lactated ringers IV infusion 1,000 mL 10-31 01:00: 00 10-31 06:52 :16 No 1000mL at 75 mL/hr, 1,000 mL, IV Infusion, CONTINUOUS , Starting on Thu10/30/21 at 1900, Until Thu10/31/21 at 0052, Routine [facility] morpHINE injection 4 mg 10-31 00:43: 35 11-01 00:42 :35 No 4mg 4 mg, Slow IV Push, Q4HPRN, Starting on Thu10/30/21 at 1843, Until Thu10/31/21 at 1842, Routine, Pain (scale 7-10) [facility] HYDROcodone -acetaminop hen (NORCO 5) 5-325 mg tablet 1 tablet 10-31 00:43: 32 11-02 00:42 :32 No 1{tbl} 1 tablet, Oral, Q6HPRN, Starting on Thu10/30/21 at 1843, Until Thu11/01/21 at 1842, Routine, Pain (scale 4-6) [facility] acetaminoph en (TYLENOL) tablet 650 mg 10-31 00:43: 22 Yes 650mg 650 mg, Oral, Q6HPRN, Starting on Thu10/30/21 at 1843, Until Discontinu ed, Routine, Pain (scale 1-3) [facility] ondansetron (ZOFRAN (PF)) injection 4 mg 10-30 21:15: 00 10-30 20:28 :00 No 4mg 4 mg, Slow IV Push, ONCE, 1 dose, On Thu10/30/21 at 1515, VASILIY [facility] morpHINE injection 4 mg 10-30 21:15: 00 10-30 20:29 :00 No 4mg 4 mg, Slow IV Push, ONCE, 1 dose, On Thu10/30/21 at 1515, STAT [facility] NaCl 0.9% (NS) bolus infusion 1,000 mL 10-30 21:15: 00 10-30 20:29 :00 No 1000mL at 999 mL/hr, 1,000 mL, IV Infusion, ONCE, 1 dose, On Thu10/30/21 at 1515, VASILIY [facility] iopamidol (ISOVUE 370-500 mL) injection 100 mL 10-30 20:37: 00 10-30 20:35 :00 No [id number] 100mL 100 mL, Intravenou s, ONCE, 1 dose, On Thu10/30/21 at 1445, Routine [facility] lisinopril 10 mg tablet 2-03 [...] 1 dose, Carrie 05/23/21 at 2245, STAT [facility] NaCl 0.9% (NS) bolus infusion 1,000 mL -10 03:00: 05-24 03:00 :00 No 1000mL at 999 mL/hr, 1,000 mL, IV Piggyback, ONCE, 1 dose, Carrie 05/23/21 at 2200, STAT [facility] NaCl 0.9% (NS) bolus infusion 500 mL 05-23 03:15: 00 05-23 15:14 :00 No 500mL at 999 mL/hr, 500 mL, IV Piggyback, ONCE, 1 dose, 05/22/21 at 2215, STAT [facility] dexamethaso ne (DECADRON PHOSPHATE) injection 10 mg 04-02 03:30: 00 04-02 02:47 :00 No 10mg 10 mg, Intramuscu lar, ONCE, 1 dose, 04/01/21 at 2230, STAT [facility] ketorolac (TORADOL) injection 60 mg 03-18 04:00: 00 03-18 02:56 :00 No 60mg 60 mg, Intramuscu lar, ONCE, 1 dose, 03/17/21 at 2300, [facility] : EMERGENCY ROOM, [facility] ibuprofen 800 mg tablet 03-17 00:00: 00 05-23 00:00 :00 No [id number] 800mg Take 1 tablet by mouth every 8 (eight) hours as needed for Pain (scale 4-6). [facility] acetaminoph en-codeine 300-30 mg tablet 03-17 00:00: 00 03-25 04:59 :00 No [id number] 1{tbl} Take 1 tablet by mouth every 6 (six) hours as needed for Pain (scale 7-10) for up to 7 days. Indication s: acute pain [facility] benzonatate (TESSALON PERLES) capsule 200 mg 11-15 05:00: 00 11-15 04:51 :00 No 200mg 200 mg, Oral, ONCE, 1 dose, 11/14/20 at 2300, Routine [facility] Dose Unknown 2021-0 3-03 00:00: 00 No Dose Unknown 3-03 00:00: 00 No benzonatate 100 mg capsule 3-03 00:00: 00 05-23 00:00 :00 No [id number] 100mg Take 1 capsule by mouth 3 (three) times daily as needed for Cough. [facility] diphenhydrA MINE (BENADRYL) injection 25 mg 09-30 16:00: 00 09-30 15:17 :00 No 25mg 25 mg, Slow IV Push, ONCE, 1 dose, 09/30/20 at 1000, STAT [facility] metoclopram jerilyn HCl (REGLAN) injection 10 mg 09-30 16:00: 00 09-30 15:17 :00 No 10mg 10 mg, Slow IV Push, ONCE, 1 dose, 09/30/20 at 1000, VASILIY [facility] NaCl 0.9% (NS) bolus infusion 1,000 mL 09-30 15:00: 00 09-30 16:45 :00 No 1000mL at 999 mL/hr, 1,000 mL, IV Infusion, ONCE, 1 dose, 09/30/20 at 0900, VASILIY [facility] amLODIPine (NORVASC) 10 mg tablet 09-30 00:00: 00 Yes [id number] 10mg Take 1 tablet by mouth daily. [facility] lisinopriL 10 mg tablet 09-30 00:00: 00 11-01 00:00 :00 No [id number] 10mg Take 1 tablet by mouth at bedtime. [facility] Dose Unknown 2019-09 0 00:00: 00 No Dose Unknown 2019-09 030 00:00: 00 No maalox:diph enhydrAMINE :lidocaine 2 % viscous 1:1:1 ([facility]) oral suspension 15 mL 2019-09 0 03:30: 00 07-02 03:30 :00 No 15mL 15 mL, Oral, ONCE, 1 dose, 07/01/20 at 2230, VASILIY [facility] sodium chloride (NS) injection 5 mL 2019-09 03:00: 48 Yes 5mL 5 mL, Intravenou s, PRN, Starting 07/01/20 at 2200, Until Discontinu ed, Routine, IV line flushing [facility] sucralfate 1 gram tablet 2019-09 00:00: 07-16 05:59 :00 No [id number] 1g Take 1 tablet by mouth before meals and at bedtime for 14 days. [facility] lisinopril 10 mg tablet 04-12 00:00: 00 No 1mg amlodipine 10 mg tablet 04-12 00:00: 00 No 1mg No known medications No [facility] Immunizations Ordered Immunization Name Filled Immunization Name Date Status Comments Source SARS-COV-2 COVID-19 PFIZER VACCINE 2021-05-07 00:00:00 Completed [facility] SARS-COV-2 COVID-19 PFIZER VACCINE 2021-05-07 00:00:00 Completed [facility] SARS-COV-2 COVID-19 PFIZER VACCINE 2021-05-07 00:00:00 Completed [facility] SARS-COV-2 COVID-19 PFIZER VACCINE 2021-05-07 00:00:00 Completed [facility] SARS-COV-2 COVID-19 PFIZER VACCINE 2021-05-07 00:00:00 Completed [facility] SARS-COV-2 COVID-19 PFIZER VACCINE 2021-05-07 00:00:00 Completed [facility] SARS-COV-2 COVID-19 PFIZER VACCINE 2021-05-07 00:00:00 Completed [facility] SARS-COV-2 COVID-19 PFIZER VACCINE 2021-05-07 00:00:00 Completed [facility] SARS-COV-2 COVID-19 PFIZER VACCINE 2021-05-07 00:00:00 Completed [facility] SARS-COV-2 COVID-19 PFIZER VACCINE 2021-05-07 00:00:00 Completed [facility] SARS-COV-2 COVID-19 PFIZER VACCINE 2021-05-07 00:00:00 Completed [facility] SARS-COV-2 COVID-19 PFIZER VACCINE 2021-05-07 00:00:00 Completed [facility] SARS-COV-2 COVID-19 PFIZER VACCINE 2021-05-07 00:00:00 Completed [facility] SARS-COV-2 COVID-19 PFIZER VACCINE 2021-05-07 00:00:00 Completed [facility] SARS-COV-2 COVID-19 PFIZER VACCINE 2021-05-07 00:00:00 Completed [facility] SARS-COV-2 COVID-19 PFIZER VACCINE 2021-05-07 00:00:00 Completed [facility] SARS-COV-2 COVID-19 PFIZER VACCINE 2021-05-07 00:00:00 Completed [facility] SARS-COV-2 COVID-19 PFIZER VACCINE 2021-05-07 00:00:00 Completed [facility] SARS-COV-2 COVID-19 PFIZER VACCINE 2021-05-07 00:00:00 Completed [facility] SARS-COV-2 COVID-19 PFIZER VACCINE 2021-05-07 00:00:00 Completed [facility] SARS-COV-2 COVID-19 PFIZER VACCINE 2021-05-07 00:00:00 Completed [facility] SARS-COV-2 COVID-19 PFIZER VACCINE 2021-05-07 00:00:00 Completed [facility] SARS-COV-2 COVID-19 PFIZER VACCINE 2021-05-07 00:00:00 Completed [facility] SARS-COV-2 COVID-19 PFIZER VACCINE Unknown Completed [facility] SARS-COV-2 COVID-19 PFIZER VACCINE Unknown Completed [facility] SARS-COV-2 COVID-19 PFIZER VACCINE Unknown Completed [facility] SARS-COV-2 COVID-19 PFIZER VACCINE Unknown Completed [facility] SARS-COV-2 COVID-19 PFIZER VACCINE Unknown Completed [facility] SARS-COV-2 COVID-19 PFIZER VACCINE Unknown Completed [facility] SARS-COV-2 COVID-19 PFIZER VACCINE Unknown Completed [facility] SARS-COV-2 COVID-19 PFIZER VACCINE Unknown Completed [facility] SARS-COV-2 COVID-19 PFIZER VACCINE Unknown Completed [facility] SARS-COV-2 COVID-19 PFIZER VACCINE Unknown Completed [facility] SARS-COV-2 COVID-19 PFIZER VACCINE Unknown Completed [facility] SARS-COV-2 COVID-19 PFIZER VACCINE Unknown Completed [facility] SARS-COV-2 COVID-19 PFIZER VACCINE Unknown Completed [facility] SARS-COV-2 COVID-19 PFIZER VACCINE Unknown Completed [facility] SARS-COV-2 COVID-19 PFIZER VACCINE Unknown Completed [facility] SARS-COV-2 COVID-19 PFIZER VACCINE Unknown Completed [facility] SARS-COV-2 COVID-19 PFIZER VACCINE Unknown Completed [facility] SARS-COV-2 COVID-19 PFIZER VACCINE Unknown Completed [facility] SARS-COV-2 COVID-19 PFIZER VACCINE Unknown Completed [facility] SARS-COV-2 COVID-19 PFIZER VACCINE Unknown Completed [facility] SARS-COV-2 COVID-19 PFIZER VACCINE Unknown Completed [facility] Vital Signs Vital Name Observation Time Observation Value Comments S ource Systolic blood pressure 2025-04-07 04:00:00 151 mm[Hg] [facility] Diastolic blood pressure 2025-04-07 04:00:00 80 mm[Hg] [facility] Heart rate 2025-04-07 04:00:00 74 /min [facility] Body temperature 2025-04-07 04:00:00 36.72 Cindi [facility] Respiratory rate 2025-04-07 04:00:00 18 /min [facility] Oxygen saturation in Arterial blood by Pulse oximetry 2025-04-07 04:00:00 97 /min [facility] Body height 2025-04-07 00:09:00 195.6 cm [facility] Body weight 2025-04-07 00:09:00 124.739 kg [facility] BMI 2025-04-07 00:09:00 32.61 kg/m2 [facility] Systolic blood pressure 2025-01-02 13:35:00 156 mm[Hg] [...] pressure 2024 15:47:00 122 mm[Hg] Luz Maria Seybo ld - External Diastolic blood pressure 2024 15:47:00 84 mm[Hg] Luz Maria Ingramybo ld - External Heart rate 2024 15:47:00 89 /min Manojse y Seybold - External Body temperature 2024 15:47:00 36.11 Cindi Luz Maria Seybold - External Respiratory rate 2024 15:47:00 18 /min Luz Maria Seybold - External Body height 2024 15:47:00 195.6 cm Kelsi ey Seybold - External Body weight 2024 15:47:00 123.832 kg Kelsi ey Seybold - External BMI 2024 15:47:00 32.37 kg/m2 Kelsi ey Seybold - External Oxygen saturation in Arterial blood by Pulse oximetry 2024 15:47:00 97 /min Luz Maria Ingramybo ld - External Heart rate 2024-06-08 00:59:00 80 /min [facility] Respiratory rate 2024-06-08 00:59:00 15 /min [facility] Oxygen saturation in Arterial blood by Pulse oximetry 2024-06-08 00:59:00 97 /min [facility] Systolic blood pressure 2024-06-08 00:30:00 149 mm[Hg] [facility] Diastolic blood pressure 2024-06-08 00:30:00 98 mm[Hg] [facility] Body temperature 2024-06-07 21:55:00 36.5 Cindi [facility] Body height 2024-06-07 21:55:00 195.6 cm Box [...] Systolic blood pressure 2024-04-02 17:52:00 140 mm[Hg] [facility] Diastolic blood pressure 2024-04-02 17:52:00 93 mm[Hg] [facility] Heart rate 2024-04-02 17:52:00 80 /min [facility] Body temperature 2024-04-02 17:52:00 37 Cindi [facility] Respiratory rate 2024-04-02 17:52:00 20 /min [facility] Oxygen saturation in Arterial blood by Pulse oximetry 2024-04-02 17:52:00 98 /min [facility] Body height 2024-04-02 13:32:00 195.6 cm [facility] Body weight 2024-04-02 13:32:00 120.3 kg [facility] BMI 2024-04-02 13:32:00 31.45 kg/m2 [facility] Systolic blood pressure 2024-03-30 13:10:00 119 mm[Hg] Luz Maria Seybo ld - External Diastolic blood pressure 2024-03-30 13:10:00 77 mm[Hg] Luz Maria Seybo ld - External Heart rate 2024-03-30 13:10:00 83 /min Kel y Seybold - External Body temperature 2024-03-30 [...] Systolic blood pressure 2024-02-21 04:48:00 132 mm[Hg] [facility] Diastolic blood pressure 2024-02-21 04:48:00 82 mm[Hg] [facility] Heart rate 2024-02-21 04:48:00 74 [facility] Body temperature 2024-02-21 04:48:00 36.72 Cindi [facility] Respiratory rate 2024-02-21 04:48:00 15 /min [facility] Oxygen saturation in Arterial blood by Pulse oximetry 2024-02-21 04:48:00 98 /min [facility] Body height 2024-02-21 02:43:00 195.6 cm Box [...] 03:57:00 83 mm[Hg] [facility] Heart rate 2023-12-10 03:57:00 70 /min [facility] Respiratory rate 2023-12-10 03:57:00 16 /min [facility] Oxygen saturation in Arterial blood by Pulse oximetry 2023-12-10 03:57:00 99 /min [facility] Body temperature 2023-12-10 01:12:00 36.83 Cindi [facility] Body height 2023-12-10 01:12:00 195.6 cm Box [...] rate 2023-10-06 20:14:00 18 /min Luz Maria Riveraold - External Body height 2023-10-06 20:14:00 195.6 [...] Services Heart rate 2023-08-04 05:38:00 70 /min [facility] Body temperature 2023-08-04 05:38:00 37 Cindi [facility] Respiratory rate 2023-08-04 05:38:00 18 /min [facility] Oxygen saturation in Arterial blood by Pulse oximetry 2023-08-04 05:38:00 98 /min [facility] Body height 2023-08-04 02:22:00 195.6 cm [facility] Body weight 2023-08-04 02:22:00 118.389 kg [facility] BMI 2023-08-04 02:22:00 30.95 kg/m2 [facility] Systolic blood pressure 2023-07-25 18:00:00 146 mm[Hg] [facility] Diastolic blood pressure 2023-07-25 18:00:00 90 mm[Hg] [facility] Heart rate 2023-07-25 18:00:00 75 /min [facility] Respiratory rate 2023-07-25 18:00:00 18 /min [facility] Oxygen saturation in Arterial blood by Pulse oximetry 2023-07-25 18:00:00 95 /min [facility] Body temperature 2023-07-25 15:57:00 37.61 Cindi [facility] Body height 2023-07-25 15:57:00 195.6 cm [facility] Body weight 2023-07-25 15:57:00 118.842 kg [facility] BMI 2023-07-25 15:57:00 31.07 kg/m2 [facility] Systolic blood pressure 2023-07-24 21:05:00 140 mm[Hg] [facility] Diastolic blood pressure 2023-07-24 21:05:00 94 mm[Hg] [facility] Heart rate 2023-07-24 21:05:00 71 /min [facility] Body temperature 2023-07-24 21:05:00 36.67 Cindi [facility] Respiratory rate 2023-07-24 21:05:00 18 /min [facility] Oxygen saturation in Arterial blood by Pulse oximetry 2023-07-24 21:05:00 97 /min [facility] Body weight 2023-07-24 18:35:00 115.667 kg [facility] BMI 2023-07-24 18:35:00 30.24 kg/m2 [facility] Systolic blood pressure 2023-07-12 03:30:00 156 mm[Hg] [facility] Diastolic blood pressure 2023-07-12 03:30:00 101 mm[Hg] [facility] Heart rate 2023-07-12 03:30:00 90 /min [facility] Respiratory rate 2023-07-12 03:30:00 20 /min [facility] Oxygen saturation in Arterial blood by Pulse oximetry 2023-07-12 03:30:00 94 /min [facility] Body temperature 2023-07-12 01:57:00 36.67 Cindi [facility] Body weight 2023-07-12 01:57:00 115.667 kg [facility] BMI 2023-07-12 01:57:00 30.24 kg/m2 [facility] Systolic blood pressure 2023-07-10 13:34:00 140 mm[Hg] [facility] Diastolic blood pressure 2023-07-10 13:34:00 95 mm[Hg] [facility] Heart rate 2023-07-10 13:34:00 76 /min [facility] Body temperature 2023-07-10 13:34:00 35.94 Cindi [facility] Body height 2023-07-10 13:34:00 195.6 cm Box [...] Services Heart rate 2023-07-03 12:45:10 88 /min [facility] Respiratory rate 2023-07-03 12:45:10 16 /min [facility] Oxygen saturation in Arterial blood by Pulse oximetry 2023-07-03 12:45:10 97 /min [facility] Body temperature 2023-07-03 09:47:00 36.78 Cindi [facility] Body height 2023-07-03 09:47:00 195.6 cm [facility] Body weight 2023-07-03 09:47:00 113.853 kg Box [...] Services Heart rate 2023-05-08 03:30:00 70 /min [facility] Respiratory rate 2023-05-08 03:30:00 18 /min [facility] Oxygen saturation in Arterial blood by Pulse oximetry 2023-05-08 03:30:00 97 /min [facility] Body temperature 2023-05-07 22:36:00 36.72 Cindi [facility] Body weight 2023-05-07 22:36:00 113.853 kg [facility] BMI 2023-05-07 22:36:00 30.55 kg/m2 [facility] Systolic blood pressure 2023-05-02 05:00:00 134 mm[Hg] [facility] Diastolic blood pressure 2023-05-02 05:00:00 85 mm[Hg] [facility] Heart rate 2023-05-02 05:00:00 72 /min [facility] Oxygen saturation in Arterial blood by Pulse oximetry 2023-05-02 05:00:00 98 /min [facility] Body temperature 2023-05-02 02:28:00 37.28 Cindi [facility] Respiratory rate 2023-05-02 02:28:00 20 /min [facility] Body height 2023-05-02 02:28:00 193 cm [facility] Body weight 2023-05-02 02:28:00 113.399 kg [facility] BMI 2023-05-02 02:28:00 30.43 kg/m2 [facility] Systolic blood pressure 2023-04-22 18:02:36 130 mm[Hg] [facility] Diastolic blood pressure 2023-04-22 18:02:36 80 mm[Hg] [facility] Heart rate 2023-04-22 18:02:36 68 /min [facility] Body temperature 2023-04-22 18:02:36 36.78 Cindi [facility] Respiratory rate 2023-04-22 18:02:36 17 /min [facility] Oxygen saturation in Arterial blood by Pulse oximetry 2023-04-22 18:02:36 96 /min [facility] Body height 2023-04-22 08:58:00 195.6 cm [facility] Body weight 2023-04-22 08:58:00 113.944 kg [facility] BMI 2023-04-22 08:58:00 29.79 kg/m2 [facility] Systolic blood pressure 2023-04-16 13:30:00 142 mm[Hg] [facility] Diastolic blood pressure 2023-04-16 13:30:00 98 mm[Hg] [facility] Heart rate 2023-04-16 13:30:00 65 /min [facility] Respiratory rate 2023-04-16 13:30:00 17 /min [facility] Oxygen saturation in Arterial blood by Pulse oximetry 2023-04-16 13:30:00 98 /min [facility] Systolic blood pressure 2023-04-16 12:32:00 155 mm[Hg] [facility] Diastolic blood pressure 2023-04-16 12:32:00 108 mm[Hg] [facility] Heart rate 2023-04-16 12:32:00 61 /min [facility] Respiratory rate 2023-04-16 12:32:00 18 /min [facility] Oxygen saturation in Arterial blood by Pulse oximetry 2023-04-16 12:32:00 97 /min [facility] Body temperature 2023-04-16 12:09:00 36.72 Cindi [facility] Body weight 2023-04-16 12:09:00 118.842 kg [facility] BMI 2023-04-16 12:09:00 31.89 kg/m2 [facility] Systolic blood pressure 2023-04-01 08:00:00 130 mm[Hg] [facility] Diastolic blood pressure 2023-04-01 08:00:00 75 mm[Hg] [facility] Heart rate 2023-04-01 08:00:00 75 /min [facility] Respiratory rate 2023-04-01 08:00:00 19 /min [facility] Oxygen saturation in Arterial blood by Pulse oximetry 2023-04-01 08:00:00 96 /min [facility] Body temperature 2023-04-01 05:02:00 36.28 Cindi [facility] Body height 2023-04-01 05:02:00 193 cm [facility] Body weight 2023-04-01 05:02:00 111.585 kg [facility] BMI 2023-04-01 05:02:00 29.94 kg/m2 [facility] Systolic blood pressure 2023-02-13 21:00:00 157 mm[Hg] [facility] Diastolic blood pressure 2023-02-13 21:00:00 89 mm[Hg] [facility] Heart rate 2023-02-13 21:00:00 102 /min [facility] Body temperature 2023-02-13 21:00:00 37.89 Cindi [facility] Respiratory rate 2023-02-13 21:00:00 16 /min [facility] Body weight 2023-02-13 21:00:00 124.286 kg Box [...] rate 2022-12-09 06:33:00 60 /min [facility] Respiratory rate 2022-12-09 06:33:00 11 /min [facility] Oxygen saturation in Arterial blood by Pulse oximetry 2022-12-09 06:33:00 96 /min [facility] Body temperature 2022-12-09 04:51:00 37 Cindi [facility] Body height 2022-12-09 04:51:00 193 cm [facility] Body weight 2022-12-09 04:51:00 116.121 kg [facility] BMI 2022-12-09 04:51:00 31.16 kg/m2 [facility] Systolic blood pressure 2022-11-25 04:51:00 148 mm[Hg] [facility] Diastolic blood pressure 2022-11-25 04:51:00 96 mm[Hg] [facility] Heart rate 2022-11-25 04:51:00 71 /min [facility] Body temperature 2022-11-25 04:51:00 37 Cindi [facility] Respiratory rate 2022-11-25 04:51:00 16 /min [facility] Body height 2022-11-25 04:51:00 193 cm Box [...] Services Heart rate 2022-10-12 21:48:00 70 /min [facility] Body temperature 2022-10-12 21:48:00 36.89 Cindi [facility] Respiratory rate 2022-10-12 21:48:00 18 /min [facility] Oxygen saturation in Arterial blood by Pulse oximetry 2022-10-12 21:48:00 94 /min [facility] Body height 2022-10-11 17:50:00 193 cm [facility] Body weight 2022-10-11 17:50:00 113.399 kg [facility] BMI 2022-10-11 17:50:00 30.43 kg/m2 [facility] Systolic blood pressure 2022-10-09 07:25:23 138 mm[Hg] [facility] Diastolic blood pressure 2022-10-09 07:25:23 86 mm[Hg] [facility] Heart rate 2022-10-09 07:25:23 73 /min [facility] Respiratory rate 2022-10-09 07:25:23 20 /min [facility] Oxygen saturation in Arterial blood by Pulse oximetry 2022-10-09 07:25:23 98 /min [facility] Body temperature 2022-10-09 04:12:00 37.28 Cindi [facility] Body height 2022-10-09 04:12:00 193 cm [facility] Body weight 2022-10-09 04:12:00 113.399 kg [facility] BMI 2022-10-09 04:12:00 30.43 kg/m2 [facility] Systolic blood pressure 2022-08-20 14:40:00 147 mm[Hg] [facility] Diastolic blood pressure 2022-08-20 14:40:00 95 mm[Hg] [facility] Heart rate 2022-08-20 14:40:00 75 /min [facility] Body temperature 2022-08-20 14:40:00 36.89 Cindi [facility] Respiratory rate 2022-08-20 14:40:00 20 /min [facility] Body height 2022-08-20 14:40:00 190.5 cm [facility] Body weight 2022-08-20 14:40:00 115.667 kg [facility] BMI 2022-08-20 14:40:00 31.87 kg/m2 [facility] Oxygen saturation in Arterial blood by Pulse oximetry 2022-08-20 14:40:00 98 /min [facility] height 2022-07-11 09:30:00 77 [in_i] [facility] weight 2022-07-11 09:30:00 253.6 [lb_av] Co m[facility] temperature 2022-07-11 09:30:00 98.3 [degF] Com mon [facility] bmi 2022-07-11 09:30:00 30.07 kg/m2 [facility] oximetry 2022-07-11 09:30:00 99 % [facility] respiratory rate 2022-07-11 09:30:00 18 /min [facility] blood pressure systolic 2022-07-11 09:30:00 135 mm[Hg] [facility] blood pressure diastolic 2022-07-11 09:30:00 81 mm[Hg] [facility] Systolic blood pressure 2022-06-09 15:00:00 141 mm[Hg] [facility] Diastolic blood pressure 2022-06-09 15:00:00 94 mm[Hg] [facility] Heart rate 2022-06-09 15:00:00 59 /min [facility] Respiratory rate 2022-06-09 15:00:00 16 /min [facility] Oxygen saturation in Arterial blood by Pulse oximetry 2022-06-09 15:00:00 97 /min [facility] Body temperature 2022-06-09 11:56:00 36.17 Cindi [facility] Body height 2022-06-09 11:56:00 195.6 cm [facility] Body weight 2022-06-09 11:56:00 127.007 kg [facility] BMI 2022-06-09 11:56:00 33.20 kg/m2 [facility] Systolic blood pressure 2021-11-01 17:12:00 152 mm[Hg] [facility] Diastolic blood pressure 2021-11-01 17:12:00 89 mm[Hg] [facility] Heart rate 2021-11-01 17:12:00 72 /[facility] 2021-11-01 17:12:00 36.17 Cindi [facility] Respiratory rate 2021-11-01 17:12:00 18 /min [facility] Oxygen saturation in Arterial blood by Pulse oximetry 2021-11-01 17:12:00 94 /min [facility] Body height 2021-10-30 23:19:00 195.6 cm [facility] Body weight 2021-10-30 23:19:00 116.983 kg [facility] BMI 2021-10-30 23:19:00 30.58 kg/m2 [facility] Systolic blood pressure 2021-05-24 06:00:00 135 mm[Hg] [facility] Diastolic blood pressure 2021-05-24 06:00:00 97 mm[Hg] [facility] Heart rate 2021-05-24 06:00:00 88 /min [facility] Respiratory rate 2021-05-24 06:00:00 21 /min [facility] Oxygen saturation in Arterial blood by Pulse oximetry 2021-05-24 06:00:00 94 /min [facility] Body temperature 2021-05-24 01:47:00 37.28 Cindi [facility] Body height 2021-05-24 01:47:00 195.6 cm [facility] Body weight 2021-05-24 01:47:00 127.461 kg [facility] BMI 2021-05-24 01:47:00 33.32 kg/m2 [facility] Systolic blood pressure 2021-05-22 23:36:00 154 mm[Hg] [facility] Diastolic blood pressure 2021-05-22 23:36:00 112 mm[Hg] [facility] Heart rate 2021-05-22 23:36:00 97 /min [facility] Body temperature 2021-05-22 23:36:00 36 Cindi [facility] Respiratory rate 2021-05-22 23:36:00 19 /min [facility] Body height 2021-05-22 23:36:00 195.6 cm [facility] Body weight 2021-05-22 23:36:00 127.007 kg [facility] BMI 2021-05-22 23:36:00 33.20 kg/m2 [facility] Oxygen saturation in Arterial blood by Pulse oximetry 2021-05-22 23:36:00 96 /min [facility] Systolic blood pressure 2021-05-02 00:01:00 157 mm[Hg] [facility] Diastolic blood pressure 2021-05-02 00:01:00 93 mm[Hg] [facility] Heart rate 2021-05-02 00:01:00 84 /min [facility] Body temperature 2021-05-02 00:01:00 36.56 Cindi [facility] Respiratory rate 2021-05-02 00:01:00 18 /min [facility] Body weight 2021-05-02 00:01:00 126.554 kg [facility] BMI 2021-05-02 00:01:00 33.08 kg/m2 [facility] Oxygen saturation in Arterial blood by Pulse oximetry 2021-05-02 00:01:00 97 /min [facility] Systolic blood pressure 2021-04-02 01:01:00 144 mm[Hg] [facility] Diastolic blood pressure 2021-04-02 01:01:00 94 mm[Hg] [facility] Heart rate 2021-04-02 01:01:00 89 /min [facility] Body temperature 2021-04-02 01:01:00 37.06 Cindi [facility] Respiratory rate 2021-04-02 01:01:00 18 /min [facility] Body weight 2021-04-02 01:01:00 129.729 kg [facility] BMI 2021-04-02 01:01:00 33.91 kg/m2 [facility] Oxygen saturation in Arterial blood by Pulse oximetry 2021-04-02 01:01:00 100 /min [facility] Systolic blood pressure 2021-04-02 01:01:00 144 mm[Hg] [facility] Diastolic blood pressure 2021-04-02 01:01:00 94 mm[Hg] [facility] Heart rate 2021-04-02 01:01:00 89 /min [facility] Body temperature 2021-04-02 01:01:00 37.06 Cindi [facility] Respiratory rate 2021-04-02 01:01:00 18 /min [facility] Body weight 2021-04-02 01:01:00 129.729 kg [facility] BMI 2021-04-02 01:01:00 33.91 kg/m2 [facility] Oxygen saturation in Arterial blood by Pulse oximetry 2021-04-02 01:01:00 100 /min [facility] Systolic blood pressure 2021-03-18 03:16:13 140 mm[Hg] [facility] Diastolic blood pressure 2021-03-18 03:16:13 80 mm[Hg] [facility] Heart rate 2021-03-18 03:16:13 80 /min [facility] Body temperature 2021-03-18 03:16:13 36.67 Cindi [facility] Respiratory rate 2021-03-18 03:16:13 19 /min [facility] Oxygen saturation in Arterial blood by Pulse oximetry 2021-03-18 03:16:13 99 /min [facility] [facility] Body weight 2021-03-18 01:02:00 129.729 kg [facility] BMI 2021-03-18 01:02:00 33.91 kg/m2 [facility] Systolic blood pressure 2021-03-18 03:16:13 140 mm[Hg] [facility] Diastolic blood pressure 2021-03-18 03:16:13 80 mm[Hg] [facility] Heart rate 2021-03-18 03:16:13 80 /min [facility] Body temperature 2021-03-18 03:16:13 36.67 [facility] Respiratory rate 2021-03-18 03:16:13 19 /min [facility] Oxygen saturation in Arterial blood by Pulse oximetry 2021-03-18 03:16:13 99 /min [facility] Body weight 2021-03-18 01:02:00 129.729 kg Box [...] rate 2020-11-15 03:25:00 84 /min [facility] Body temperature 2020-11-15 03:25:00 36.67 Cindi [facility] Respiratory rate 2020-11-15 03:25:00 20 /min [facility] Body weight 2020-11-15 03:25:00 132.45 kg [facility] BMI 2020-11-15 03:25:00 34.63 kg/m2 [facility] Oxygen saturation in Arterial blood by Pulse oximetry 2020-11-15 04:31:00 97 /min [facility] Systolic blood pressure 2020-11-15 03:25:00 173 mm[Hg] [facility] Diastolic blood pressure 2020-11-15 03:25:00 97 mm[Hg] [facility] Heart rate 2020-11-15 03:25:00 84 /min [facility] Body temperature 2020-11-15 03:25:00 36.67 Cindi [facility] Respiratory rate 2020-11-15 03:25:00 20 /min [facility] Body weight 2020-11-15 03:25:00 132.45 kg [facility] BMI 2020-11-15 03:25:00 34.63 kg/m2 [facility] Systolic blood pressure 2020-09-30 16:30:00 121 mm[Hg] [facility] Diastolic blood pressure 2020-09-30 16:30:00 66 mm[Hg] [facility] Heart rate 2020-09-30 16:30:00 72 /min [facility] Respiratory rate 2020-09-30 16:30:00 19 /min [facility] Oxygen saturation in Arterial blood by Pulse oximetry 2020-09-30 16:30:00 94 /min [facility] Body weight 2020-09-30 14:20:00 136.079 kg [facility] BMI 2020-09-30 14:20:00 35.57 kg/m2 [facility] Body temperature 2020-09-30 14:10:00 37.06 Cindi [facility] Systolic blood pressure 2020-09-30 16:30:00 121 mm[Hg] [facility] Diastolic blood pressure 2020-09-30 16:30:00 66 mm[Hg] [facility] Heart rate 2020-09-30 16:30:00 72 /min [facility] Respiratory rate 2020-09-30 16:30:00 19 /min [facility] Oxygen saturation in Arterial blood by Pulse oximetry 2020-09-30 16:30:00 94 /min [facility] Body weight 2020-09-30 14:20:00 136.079 kg [facility] BMI 2020-09-30 14:20:00 35.57 kg/m2 [facility] Body temperature 2020-09-30 14:10:00 37.06 Cindi [facility] Systolic blood pressure 2020-07-02 04:00:00 132 mm[Hg] [facility] Diastolic blood pressure 2020-07-02 04:00:00 84 mm[Hg] [facility] Heart rate 2020-07-02 04:00:00 89 /min [facility] Oxygen saturation in Arterial blood by Pulse oximetry 2020-07-02 04:00:00 95 /min [facility] Body temperature 2020-07-02 02:53:00 36.94 Cindi [facility] Respiratory rate 2020-07-02 02:53:00 18 /min [facility] Body height 2020-07-02 02:53:00 195.6 cm [facility] Body weight 2020-07-02 02:53:00 136.079 kg [facility] BMI 2020-07-02 02:53:00 35.57 kg/m2 [facility] Systolic blood pressure 2020-07-02 04:00:00 132 mm[Hg] [facility] Diastolic blood pressure 2020-07-02 04:00:00 84 mm[Hg] [facility] Heart rate 2020-07-02 04:00:00 89 /min [facility] Oxygen saturation in Arterial blood by Pulse oximetry 2020-07-02 04:00:00 95 /min [facility] Body temperature 2020-07-02 02:53:00 36.94 Cindi [facility] Respiratory rate 2020-07-02 02:53:00 18 /min [facility] Body height 2020-07-02 02:53:00 195.6 cm Box [...] US GALL BLADDER 2025-04-07 01:26:21 Lion Rodriguez [facility] CREATINE KINASE 2025-04-07 00:38:00 Lion Rodriguez [facility] LIPASE 2025-04-07 00:38:00 Lion Rodriguez [facility] MAGNESIUM 2025-04-07 00:38:00 Jennifer [facility] TROPONIN I 2025-04-07 00:38:00 Lion Rodriguez [facility] COMP. METABOLIC PANEL ([id number]) 2025-04-07 00:38:00 Lion Rodriguez [facility] SEDIMENTATION RATE 2025-04-07 00:38:00 Jennifer [facility] CBC WITH DIFF 2025-04-07 00:38:00 Lion Rodriguez [facility] URINALYSIS 2025-04-07 00:38:00 Jennifer Cox Bransonbrian [facility] EKG-12 LEAD 2024-06-08 00:53:38 Luke Clarke [facility] XR CHEST 2 VW 2024-06-07 22:33:08 Luke Clarke [facility] CREATINE KINASE 2024-06-07 22:26:00 Luke Clarke [facility] LIPASE 2024-06-07 22:26:00 Luke Clarke [facility] MAGNESIUM 2024-06-07 22:26:00 Luke Clarke [facility] TROPONIN I 2024-06-07 22:26:00 Luke Clarke [facility] COMP. METABOLIC PANEL ([id number]) 2024-06-07 22:26:00 Luke Clarke [facility] CBC WITH DIFF 2024-06-07 22:26:00 Luke Clarke [facility] D-DIMER 2024-06-07 22:26:00 Luke Clarke [facility] INFLUENZA A/B RSV COVID NAAT 2024-06-07 22:26:00 Luke Clarke [facility] N-TERMINAL PRO-BNP 2024-06-07 22:26:00 Luke Clarke [facility] CT ABDOMEN PELVIS W CONTRAST 2024-04-02 14:49:11 Trevor Taylor [facility] URINALYSIS 2024-04-02 14:18:00 [facility] LIP[facility] 2024-04-02 14:12:00 [facility] MAGNESIUM 2024-04-02 14:12:00 [facility] TROPONIN I 2024-04-02 14:12:00 ClaudiaTrevor kramer [facility] COMP. METABOLIC PANEL ([id number]) 2024-04-02 14:12:00 Trevor Taylor Tiffanie [facility] LIPID PANEL ([id number])(TOTAL CHOLESTEROL, TRIGLYCERIDES, HDL) 2024-04-02 14:12:00 Trevor Taylor Tiffanie [facility] CBC WITH DIFF 2024-04-02 14:12:00 Trevor Taylor [facility] LIPASE 2024-02-21 03:08:00 Leti Rivas [facility] COMP. METABOLIC PANEL ([id number]) 2024-02-21 03:08:00 Leti Rivas [facility] CBC WITH DIFF 2024-02-21 03:08:00 Leti Rivas [facility] URINALYSIS 2024-02-21 03:08:00 Leti Rivas [facility] CT ABDOMEN PELVIS W CONTRAST 2023-12-10 02:36:24 Abraham Orantes [facility] COMP. METABOLIC PANEL ([id number]) 2023-12-10 02:05:00 Abraham Orantes [facility] CBC WITH DIFF 2023-12-10 02:05:00 Abraham Orantes [facility] URINALYSIS 2023-12-10 02:05:00 Abraham Orantes [facility] CT ABDOMEN PELVIS WO CONTRAST 2023-08-04 04:23:15 Abraham Orantes [facility] BASIC METABOLIC PANEL (NA, K, CL, CO2, GLUCOSE, BUN, CREATININE, CA) 2023-08-04 02:57:00 Abraham Orantes [facility] CBC WITH DIFF 2023-08-04 02:57:00 [facility] 2023-08-04 02:57:00 Abraham Orantes [facility] NOTICE OF PRIVACY PRACTICES 2023-08-04 02:16:09 Doctor Unassigned, [place] [facility] CONSENT/REFUSAL FOR DIAGNOSIS AND TREATMENT 2023-08-04 02:15:41 Doctor Unassigned, [place] [facility] LIPASE 2023-07-25 16:37:00 [facility] MAGNESIUM 2023-07-25 16:37:00 Trevor Taylor [facility] TROPONIN I 2023-07-25 16:37:00 Trevor Taylor [facility] COMP. METABOLIC PANEL ([id number]) 2023-07-25 16:37:00 Trevor Taylor [facility] CBC WITH DIFF 2023-07-25 16:37:00 Trevor Taylor [facility] URINALYSIS 2023-07-25 16:37:00 [facility] CONSENT/REFUSAL FOR DIAGNOSIS AND TREATMENT 2023-07-25 15:41:41 Doctor Unassigned, [place] [facility] US GALL BLADDER 2023-07-24 22:46:02 Johnathan Avila [facility] URINALYSIS 2023-07-24 20:10:00 Johnathan Avila [facility] EXTRA TUBE URINE CULTURE 2023-07-24 20:10:00 Ember Avila [facility] LIPASE 2023-07-24 20:09:00 Johnathan Avila [facility] COMP. METABOLIC PANEL ([id number]) 2023-07-24 20:09:00 Johnathan Avila [facility] LIPID PANEL ([id number])(TOTAL CHOLESTEROL, TRIGLYCERIDES, HDL) 2023-07-24 20:09:00 Johnathan Avila [facility] CBC WITH DIFF 2023-07-24 20:09:00 Johnathan Avila [facility] CONSENT/REFUSAL FOR DIAGNOSIS AND TREATMENT 2023-07-24 18:31:11 Doctor Unassigned, [place] [facility] XR CHEST 2 VW 2023-07-12 03:54:00 [facility] 2023-07-12 02:31:00 [facility] TROPON[facility] 2023-07-12 02:14:00 Norm Saleh [facility] COMP. METABOLIC PANEL ([id number]) 2023-07-12 02:14:00 Norm Saleh [facility] CBC WITH DIFF 2023-07-12 02:14:00 Norm Saleh [facility] COVID-19 (ID NOW RAPID TESTING) 2023-07-12 02:14:00 Norm Saleh [facility] CONSENT/REFUSAL FOR DIAGNOSIS AND TREATMENT 2023-07-12 01:47:09 Doctor Unassigned, [place] [facility] CONSENT FOR MEDICAL TREATMENT OF A MINOR 2023-07-10 05:01:00 Doctor Unassigned, [place] [facility] CT ABDOMEN PELVIS W CONTRAST 2023-07-03 10:43:57 Haresh Santamaria [facility] URINALYSIS 2023-07-03 10:23:00 Haresh Santamaria [facility] LIPASE 2023-07-03 10:11:00 Haresh Santamaria [facility] COMP. METABOLIC PANEL ([id number]) 2023-07-03 10:11:00 Haresh Santamaria [facility] CBC WITH DIFF 2023-07-03 10:11:00 Haresh Santamaria [facility] CONSENT/REFUSAL FOR DIAGNOSIS AND TREATMENT 2023-07-03 09:36:41 Doctor Unassigned, [place] [facility] CT ABDOMEN PELVIS W CONTRAST 2023-05-08 02:15:59 Riya Joseph Connie [facility] HB ABO GROUPING 2023-05-08 01:25:00 Elvin Joseph Marie [facility] LIPASE 2023-05-08 01:19:00 Elvin Joseph Marie [facility] COMP. METABOLIC PANEL ([id number]) 2023-05-08 01:19:00 Riya Joseph Connie [facility] CBC WITH DIFF 2023-05-08 01:19:00 Elvin Joseph Marie [facility] COVID-19 (ID NOW RAPID TESTING) 2023-05-08 01:19:00 Jake Riya [facility] CONSENT/REFUSAL FOR DIAGNOSIS AND TREATMENT 2023-05-07 22:22:14 Doctor Unassigned, [place] [facility] LIPASE 2023-05-02 03:01:00 [facility]in [facility] COMP. METABOLIC PANEL ([id number]) 2023-05-02 03:01:00 Aydin Matos [facility] ETHANOL 2023-05-02 03:01:00 [facility] CBC WITH DIFF 2023-05-02 03:01:00 Aydin Matos [facility] URINALYSIS 2023-05-02 03:01:00 Aydin [facility]os [facility] URINE DRUG (IMMUNOASSAY) - COMPREHENSIVE DRUG SCREEN W/O REFLEX 2023-05-02 03:01:00 Aydin Matos [facility] CONSENT/REFUSAL FOR DIAGNOSIS AND TREATMENT 2023-05-02 02:28:20 Doctor Unassigned, [place] [facility] BASIC METABOLIC PANEL (NA, K, CL, CO2, GLUCOSE, BUN, CREATININE, CA) 2023-04-22 16:47:00 Natali Alexander [facility] LIPASE 2023-04-22 12:58:00 [facility] BASIC MET[facility]OLIC PANEL (NA, K, CL, CO2, GLUCOSE, BUN, CREATININE, CA) 2023-04-22 12:58:00 Natali Alexander [facility] URINALYSIS 2023-04-22 11:44:00 Abraham Orantes [facility] CREATINE KINASE 2023-04-22 09:06:00 Natali Alexander [facility] LIPASE 2023-04-22 09:06:00 Natali Alexander [facility] COMP. METABOLIC PANEL ([id number]) 2023-04-22 09:06:00 Abraham Orantes [facility] CBC WITH DIFF 2023-04-22 09:06:00 Abraham Orantes [facility] CONSENT/REFUSAL FOR DIAGNOSIS AND TREATMENT 2023-04-22 08:52:58 Doctor Unassigned, [place] [facility] LIPASE 2023-04-16 12:30:00 Christa [facility] TROPONIN I 2023-04-16 12:30:00 Christa [facility] COMP. METABOLIC PANEL ([id number]) 2023-04-16 12:30:00 Adelaide Goodwin [facility] CBC WITH DIFF 2023-04-16 12:30:00 Christa Adelaide [facility] CONSENT/REFUSAL FOR DIAGNOSIS AND TREATMENT 2023-04-16 11:48:23 Doctor Unassigned, [place] [facility] LIPASE 2023-04-01 05:08:00 Hemalatha Mor[facility] TROPONIN I 2023-04-01 05:08:00 Hemalatha Mora [facility] COMP. METABOLIC PANEL ([id number]) 2023-04-01 05:08:00 Hemalatha Mora [facility] CBC WITH DIFF 2023-04-01 05:08:00 Hemalatha Mora [facility] URINALYSIS 2023-04-01 05:08:00 Hemalatha Mor[facility] CONSENT/REFUSAL FOR DIAGNOSIS AND TREATMENT 2023-04-01 04:51:45 Doctor Unassigned, [place] [facility] ASSIGNMENT OF BENEFITS 2023-02-13 21:19:49 Docto r Unassigned, [place] [facility] POCT GLUCOSE (AUTOMATED) 2023-02-13 21:00:00 Alan Gonzales [facility] CONSENT/REFUSAL FOR DIAGNOSIS AND TREATMENT 2023-02-13 20:50:30 Doctor Unassigned, [place] [facility] REFERRAL- REQUEST/RESPONSE 2023-01-05 05:01:00 Doctor Unassigned, [place] [facility] LIPASE 2022-12-09 05:03:00 Soham Clarke [facility] COMP. METABOLIC PANEL ([id number]) 2022-12-09 05:03:00 Soham Clarke [facility] CBC WITH DIFF 2022-12-09 05:03:00 [facility] 2022-12-09 05:03:00 Soham Clarke [facility] NOTICE OF PRIVACY PRACTICES 2022-12-09 04:46:36 Doctor Unassigned, [place] [facility] CONSENT/REFUSAL FOR DIAGNOSIS AND TREATMENT 2022-12-09 04:46:16 Doctor Unassigned, [place] [facility] CT ABDOMEN PELVIS W CONTRAST 2022-11-25 05:38:20 Lion Rodriguez [facility] LIPASE 2022-11-25 05:06:00 Lion Rodriguez [facility] HEPATIC FUNCTION PANEL ([id number]) (ALB,T.PRO,BILI T,BU/BC,ALT,AST,ALK PHOS) 2022-11-25 05:06:00 Lion Rodriguez [facility] BASIC METABOLIC PANEL (NA, K, CL, CO2, GLUCOSE, BUN, CREATININE, CA) 2022-11-25 05:06:00 Lion Rodriguez [facility] CBC WITH DIFF 2022-11-25 05:06:00 Lion Rodriguez [facility] URINALYSIS 2022-11-25 05:06:00 Lion Rodriguez [facility] CONSENT/REFUSAL FOR DIAGNOSIS AND TREATMENT 2022-11-25 04:35:51 Doctor Unassigned, [place] [facility] EXTERNAL PROVIDER RECORDS 2022-10-23 06:01:00 Do ctor Unassigned, [place] [facility] CBC WITH DIFF 2022-10-12 21:26:00 L[facility] PROSTATIC SPECIFIC ANTIGEN 2022-10-12 10:48:00 Jonh Roman [facility] HEPATIC FUNCTION PANEL ([id number]) (ALB,T.PRO,BILI T,BU/BC,ALT,AST,ALK PHOS) 2022-10-12 10:48:00 Lb Bates [facility] BASIC METABOLIC PANEL (NA, K, CL, CO2, GLUCOSE, BUN, CREATININE, CA) 2022-10-12 10:48:00 Lb Bates [facility] CBC WITH DIFF 2022-10-12 10:48:00 L[facility] HEPATIC FUN[facility]EL ([id number]) (ALB,T.PRO,BILI T,BU/BC,ALT,AST,ALK PHOS) 2022-10-11 23:53:00 Lb Bates [facility] BASIC METABOLIC PANEL (NA, K, CL, CO2, GLUCOSE, BUN, CREATININE, CA) 2022-10-11 23:53:00 Lb Bates [facility] US GALL BLADDER 2022-10-11 22:28:58 Jana Lb [facility] ABORH CONFIRMATION (LAB ONLY) 2022-10-11 21:24:00 Jana [facility] URINALYSIS 2022-10-11 21:23:00 Lb Bates [facility] HB ABO GROUPING 2022-10-11 20:41:00 Lb Bates [facility] CBC WITH DIFF 2022-10-11 20:35:00 Lb Bates Un [facility] CT ANGIOGRAM ABDOMEN/PELVIS 2022-10-11 14:52:00 Aydin Matos [facility] HB ECG ROUTINE & RHYTHM STRIP 2022-10-11 13:48:04 Aydin Matos [facility] LIPASE 2022-10-11 13:42:00 Aydin Matos [facility] TROPONIN I 2022-10-11 13:42:00 Aydin Matos [facility] COMP. METABOLIC PANEL ([id number]) 2022-10-11 13:42:00 Aydin Matos [facility] LIPID PANEL ([id number])(TOTAL CHOLESTEROL, TRIGLYCERIDES, HDL) 2022-10-11 13:42:00 Lb Bates [facility] CBC WITH DIFF 2022-10-11 13:42:00 Aydin Matos [facility] PROTHROMBIN TIME / INR 2022-10-11 13:42:00 Nicholas Matos [facility] ACTIVATED PARTIAL THRMPLAS TAE 2022-10-11 13:42:00 Aydin Matos [facility] N-TERMINAL PRO-BNP 2022-10-11 13:42:00 Aydin Matos [facility] URINE DRUG (IMMUNOASSAY) - COMPREHENSIVE DRUG SCREEN W/O REFLEX 2022-10-11 13:42:00 Aydin Matos [facility] CONSENT/REFUSAL FOR DIAGNOSIS AND TREATMENT 2022-10-11 12:24:48 Doctor Unassigned, [place] [facility] CT ABDOMEN PELVIS W CONTRAST 2022-10-09 06:30:25 Abraham Orantes [facility] LIPASE 2022-10-09 05:24:00 Abraham Orantes [facility] COMP. METABOLIC PANEL ([id number]) 2022-10-09 05:24:00 Abraham Orantes [facility] CBC WITH DIFF 2022-10-09 05:24:00 Abraham Orantes [facility] URINALYSIS 2022-10-09 05:24:00 Abraham Orantes [facility] CONSENT/REFUSAL FOR DIAGNOSIS AND TREATMENT 2022-10-09 03:56:57 Doctor Unassigned, [place] [facility] COMP. METABOLIC PANEL ([id number]) 2022-08-20 15:11:00 Trevor Taylor [facility] CBC WITH DIFF 2022-08-20 15:11:00 Trevor Taylor [facility] URINALYSIS 2022-08-20 15:11:00 Trevor Taylor [facility] CONSENT/REFUSAL FOR DIAGNOSIS AND TREATMENT 2022-08-20 14:32:58 Doctor Unassigned, [place] [facility] CT ABDOMEN PELVIS W CONTRAST 2022-06-09 13:12:35 Soham Clarke [facility] LIPASE 2022-06-09 12:48:00 Soham Clarke [facility] COMP. METABOLIC PANEL ([id number]) 2022-06-09 12:48:00 Soham Clarke [facility] CBC WITH DIFF 2022-06-09 12:48:00 [facility] 2022-06-09 12:48:00 Soham Clarke [facility] NOTICE OF PRIVACY PRACTICES 2022-06-09 11:47:39 Doctor Unassigned, [place] [facility] CONSENT/REFUSAL FOR DIAGNOSIS AND TREATMENT 2022-06-09 11:47:18 Doctor Unassigned, [place] [facility] PHOSPHORUS 2021-11-01 09:55:00 Darshan Jerrica [facility] MAGNESIUM 2021-11-01 09:55:00 Darshan [facility] BASIC METABOLIC PANEL (NA, K, CL, CO2, GLUCOSE, BUN, CREATININE, CA) 2021-11-01 09:55:00 Darshan [facility] CBC WITH DIFF 2021-11-01 09:55:00 Jerrica Sexton [facility] PHOSPHORUS 2021-10-31 08:45:00 Roxanne Swenson [facility] CREATINE KINASE 2021-10-31 08:45:00 Roxanne Swenson [facility] MAGNESIUM 2021-10-31 08:45:00 Emelia Gallego [facility] TROPONIN I 2021-10-31 08:45:00 Roxanne Swenson [facility] COMP. METABOLIC PANEL ([id number]) 2021-10-31 08:45:00 Roxanne Swenson [facility] CBC WITH DIFF 2021-10-31 08:45:00 Emelia Gallego [facility] PROTHROMBIN TIME / INR 2021-10-31 08:45:00 Ramos Swenson [facility] N-TERMINAL PRO-BNP 2021-10-31 08:45:00 Roxanne Swenson [facility] LACTIC ACID WHOLE BLOOD 2021-10-31 08:45:00 Erwin Swenson [facility] FECES CULTURE 2021-10-30 22:27:00 Monica Hernandez [facility] OCCULT (GUAIAC) BLOOD 2021-10-30 22:27:00 Juany Hernandez [facility] CLOSTRIDIUM DIFFICILE TOXIN 2021-10-30 22:27:00 Monica Hernandez [facility] COVID-19 (ID NOW RAPID TESTING) 2021-10-30 21:24:00 Madison Sepulveda [facility] LAB ONLY COVID INTERPRETATION 2021-10-30 21:24:00 Madison Sepulveda [facility] CT ABDOMEN PELVIS W CONTRAST 2021-10-30 20:44:09 Madison Sepulveda [facility] LIPASE 2021-10-30 20:25:00 Madison Sepulveda [facility] TROPONIN I 2021-10-30 20:25:00 Roxanne Swenson [facility] COMP. METABOLIC PANEL ([id number]) 2021-10-30 20:25:00 Madison Sepulveda [facility] CBC WITH DIFF 2021-10-30 20:25:00 Madison Sepulveda [facility] URINALYSIS 2021-10-30 20:25:00 Madison Sepulveda [facility] N-TERMINAL PRO-BNP 2021-10-30 20:25:00 Roxanne Swenson [facility] CONSENT/REFUSAL FOR DIAGNOSIS AND TREATMENT 2021-10-30 19:24:05 Doctor Unassigned, [place] [facility] CREATINE KINASE 2021-05-24 04:40:00 Felipe Ortega [facility] BASIC METABOLIC PANEL (NA, K, CL, CO2, GLUCOSE, BUN, CREATININE, CA) 2021-05-24 04:40:00 Felipe Ortega [facility] URINALYSIS 2021-05-24 02:14:00 Felipe Ortega [facility] CREATINE KINASE 2021-05-24 01:53:00 Felipe Ortega [facility] TROPONIN I 2021-05-24 01:53:00 Felipe Ortega [facility] COMP. METABOLIC PANEL ([id number]) 2021-05-24 01:53:00 Felipe Ortega [facility] CBC WITH DIFF 2021-05-24 01:53:00 Felipe Ortega [facility] N-TERMINAL PRO-BNP 2021-05-24 01:53:00 Felipe Ortega [facility] ASSIGNMENT OF BENEFITS 2021-05-23 00:46:04 Docto r Unassigned, [place] [facility] CONSENT/REFUSAL FOR DIAGNOSIS AND TREATMENT 2021-05-22 23:31:57 Doctor Unassigned, [place] [facility] SARS-COV-2 COVID-19 VACCINE,0.3ML,IM (PFIZER) 2021-05-07 16:12:40 Doctor Unassigned, [place] [facility] RAPID STREP SCREEN FOR GROUP A 2021-05-02 00:07:00 Aydin Matos [facility] COVID-19 (ID NOW RAPID TESTING) 2021-05-02 00:07:00 Aydin Matos [facility] CONSENT/REFUSAL FOR DIAGNOSIS AND TREATMENT 2021-05-01 23:56:07 Doctor Unassigned, [place] [facility] RAPID STREP SCREEN FOR GROUP A 2021-04-02 01:05:00 Nikhil Blanton [facility] COVID-19 (ID NOW RAPID TESTING) 2021-04-02 01:05:00 Nikhil Blanton [facility] NOTICE OF PRIVACY PRACTICES 2021-04-02 00:56:18 Doctor Unassigned, [place] [facility] CONSENT/REFUSAL FOR DIAGNOSIS AND TREATMENT 2021-04-02 00:49:05 Doctor Unassigned, [place] [facility] XR WRIST 3+ VW LEFT 2021-03-18 01:19:59 Destini Blanton [facility] URINALYSIS 2021-03-18 01:12:00 Nikhil Blanton [facility] CONSENT/REFUSAL FOR DIAGNOSIS AND TREATMENT 2021-03-18 00:56:01 Doctor Unassigned, [place] [facility] XR CHEST 1 VW 2020-11-15 03:48:28 Darnell Hsu [facility] CONSENT/REFUSAL FOR DIAGNOSIS AND TREATMENT 2020-11-15 03:11:27 Doctor Unassigned, [place] [facility] CT HEAD WO CONTRAST 2020-09-30 15:00:43 Jessica Siddiqui ra [facility] XR CHEST 1 VW 2020-09-30 14:37:13 Jessy Siddiqui [facility] LIPASE 2020-09-30 14:25:00 [facility] 2020-09-30 14:25:00 [facility] COMP. METABOLIC PANEL ([id number]) 2020-09-30 14:25:00 Jessy Siddiqui [facility] CBC WITH DIFF 2020-09-30 14:25:00 Jessy Siddiqui [facility] N-TERMINAL PRO-BNP 2020-09-30 14:25:00 Solitario Siddiqui [facility] NOTICE OF PRIVACY PRACTICES 2020-09-30 13:57:13 Doctor Unassigned, [place] [facility] CONSENT/REFUSAL FOR DIAGNOSIS AND TREATMENT 2020-09-30 13:55:57 Doctor Unassigned, [place] [facility] EKG-12 LEAD 2020-07-02 03:20:42 Felipe Ortega [facility] LIPASE 2020-07-02 03:05:00 Abraham Orantes [facility] TROPONIN I 2020-07-02 03:05:00 Felipe Ortega [facility] COMP. METABOLIC PANEL ([id number]) 2020-07-02 03:05:00 Abraham Orantes [facility] CBC WITH DIFF 2020-07-02 03:05:00 Abraham Orantes [facility] NOTICE OF PRIVACY PRACTICES 2020-07-02 02:48:43 Doctor Unassigned, [place] [facility] CONSENT/REFUSAL FOR DIAGNOSIS AND TREATMENT 2020-07-02 02:46:14 Doctor Unassigned, [place] [facility] Plan of Care Planned Activity Planned Date Details Comments Source Goal Plan of Care Note [code = 41569-2] Goal Plan of Care Note [code = 74654-0] Goal Plan of Care Note [code = 74828-4] Goal Plan of Care Note [code = 96136-5] Goal Plan of Care Note [code = 49713-7] Goal Plan of Care Note [code = 91759-3] Goal Plan of Care Note [code = 11975-1] Goal Plan of Care Note [code = 57085-3] Goal Plan of Care Note [code = 96058-9] Goal Plan of Care Note [code = 38346-8] Goal Plan of Care Note [code = 65452-9] Goal Plan of Care Note [code = 32281-2] Goal Plan of Care Note [code = 65025-7] Goal Plan of Care Note [code = 59457-4] Goal Plan of Care Note [code = 51090-6] Encounters Start Date/Time End Date/Time Encounter Type Admission Type Attending [facility] Care Facility Care Department Encounter ID Source 2022-07-29 14:17:02 Outpatient Mayuri James [facility] [id number] [facility] 2022-07-11 08:20:03 Outpatient Mayuri James [facility] [id number] [facility] 2025-04-06 19:15:00 2025-04-06 23:10:00 Emergency X JENNIFERLION [facility] ERT [id number] [facility] 2025-03-28 00:00:00 2025-03-28 00:00:00 Outpatient ANSELMO GENAO [id number] Lu[facility] Maria Ng 2025-03-22 00:00:00 2025-03-22 00:00:00 Outpatient PREZAS, ANSELMO [facility] MARIA HOLL[facility]AY [id number] Luz Maria Seybold 2025-03-14 00:00:00 2025-03-14 00:00:00 Outpatient MACKENZIE, LEANDRO [facility] [id number] Luz Maria Seybold 2025-03-13 00:00:00 2025-03-13 00:00:00 Outpatient MACKENZIE, LEANDRO [facility] [id number] [facility] 2025-02-27 00:00:00 2025-02-27 00:00:00 Outpatient MACKENZIE, LEANDRO [facility] [id number] [facility] 2025-02-13 00:00:00 2025-02-13 00:00:00 Outpatient MACKENZIE, LEANDRO [facility] [id number] [facility] 2025-02-10 00:00:00 2025-02-10 00:00:00 Outpatient MACKENZIE, LEANDRO [facility] [id number] [facility] 2025-01-31 10:15:00 2025-01-31 10:15:00 Outpatient PREZAS, ANSELMO [facility] [id number] [facility] 2025-01-25 00:00:00 2025-01-25 00:00:00 Outpatient PREZAS, ANSELMO [facility] [id number] [facility] 2025-01-03 00:00:00 2025-01-03 00:00:00 Outpatient MACKENZIE, LEANDRO [facility] [id number] Luz Maria Seybold 2025-01-02 09:00:00 2025-01-02 09:00:00 Outpatient MACKENZIE, LEANDROHELLEN HOLLIDAY [id number] Luz Maria Seybold 2024-11-28 00:00:00 2024-11-28 00:00:00 Outpatient PREZAS, ANSELMOHERACLIO HOLLIDAY [id number] Luz Maria Seybold 2024-11-28 00:00:00 2024-11-28 00:00:00 Outpatient PREZAS, ANSELMO HOLLIDAY [id number] Luz Maria Seybold 2024-10-30 00:00:00 2024-10-30 00:00:00 Outpatient PREZAS, ANSELMO HOLLIDAY [facility] MAR[facility] [id number] [facility] 2024-10-26 00:00:00 2024-10-26 00:00:00 Outpatient PREZAS, ANSELMO HOLLIDAY [facility] MAR[facility] [id number] [facility] 2024-10-25 00:00:00 2024-10-25 00:00:00 Outpatient GINUR LUZ MARIA [facility] MAR[facility] [id number] [facility] 2024-10-20 00:00:00 2024-10-20 00:00:00 Outpatient PREZAS, ANSELMO HOLLIDAY LU[facility] MARIA [id number] [facility] 2024 10:35:00 2024 10:35:00 Outpatient [id number] LUZ MARIA LUZ MARIA [id number] [facility] 2024 09:45:00 2024 09:45:00 Outpatient PREZAS, ANSELMO HOLLIDAY [facility] MAR[facility] [id number] [facility] 2024-10-17 00:00:00 2024-10-17 00:00:00 Outpatient PREZAS, ANSELMO HOLLIDAY [facility] [id number] [facility] 2024-10-12 00:00:00 2024-10-12 00:00:00 Outpatient PREZAS, ANSELMO HOLLIDAY [facility] MAR[facility] [id number] [facility] 2024-10-12 00:00:00 2024-10-12 00:00:00 Outpatient PREZAS, ANSELMO HOLLIDAY [facility] MAR[facility] [id number] [facility] 2024-09-27 00:00:00 2024-09-27 00:00:00 Outpatient PREZAS, ANSELMO LUZ MARIA [facility] MAR[facility] [id number] [facility] 2024-08-30 00:00:00 2024-08-30 00:00:00 Outpatient PREZAS, ANSELMO [facility] [id number] [facility] 2024-08-29 09:30:00 2024-08-29 09:30:00 Outpatient OMARI RAZA [id number] [facility] 2024-08-05 08:30:00 2024-08-05 08:30:00 Outpatient ADRI TAYLOR [facility] [id number] [facility] 2024-08-03 00:00:00 2024-08-03 00:00:00 Outpatient MD LUZ MARIA AN [id number] Luz Maria Ng 2024-07-29 00:00:00 2024-07-29 00:00:00 Outpatient PREZAANSELMO Genao [facility]LL[facility] [id number] [facility] 2024-07-28 00:00:00 2024-07-28 00:00:00 Outpatient PREZAS ANSELMO HOLLIDAY [id number] [facility] 2024-07-28 00:00:00 2024-07-28 00:00:00 Outpatient MACKENZIELEANDRO LAW [facility] [id number] [facility] 2024-07-20 08:45:00 2024-07-20 08:45:00 Outpatient PREZABirgit ANSELMO HOLLIDAY [id number] [facility] 2024-07-07 00:00:00 2024-07-07 00:00:00 Outpatient PREZAS ANSELMO HOLLIDAY [id number] [facility] 2024-06-16 00:00:00 2024-06-16 00:00:00 Outpatient PREZAANSELMO Genao [facility] [id number] [facility] 2024-06-07 16:57:00 2024-06-07 20:05:00 Emergency X LUKE CLARKE JOSHUA [facility] [id number] [facility] 2024-06-07 16:57:00 2024-06-07 20:05:00 Emergency Lkue Clarke AT [facility] 1.2.840.114 350.1.13.10 4.2.7.2.686 [id number] [facility] 2024-05-30 09:45:00 2024-05-30 09:45:00 Outpatient PREANNIA ANSELMO [facility] [id number] [facility] 2024-05-26 08:30:00 2024-05-26 08:30:00 Outpatient HARSHIL STYLES [facility] [id number] [facility] 2024-05-26 00:00:00 2024-05-26 00:00:00 Outpatient ADRI TAYLOR [facility] [id number] [facility] 2024-05-25 00:00:00 2024-05-25 00:00:00 Outpatient ANSELMO GENAO [facility] [id number] [facility] 2024-05-24 15:00:00 2024-05-24 15:00:00 Outpatient PREANNIA ANSELMO HOLLIDAY [id number] [facility] 2024-05-23 00:00:00 2024-05-23 00:00:00 Outpatient MD LUZ MARIA AN [id number] [facility] 2024-05-18 11:10:00 2024-05-18 11:10:00 Outpatient NEPTALIFOUZIA [facility] [id number] [facility] 2024-05-12 00:00:00 2024-05-12 00:00:00 Outpatient LUZ MARIA HOLLIDAY [id number] [facility] 2024-05-09 00:00:00 2024-05-09 00:00:00 Outpatient ANSELMO GENAO [facility] [id number] [facility] 2024-05-05 00:00:00 2024-05-05 00:00:00 Outpatient DEEJAY, GIBRAN [facility] [id number] [facility] 2024-05-04 08:30:00 2024-05-04 08:30:00 Outpatient LUZ MARIA HOLLIDAY [id number] Luz Maria Seybold 2024-04-29 00:00:00 2024-04-29 00:00:00 Outpatient ANGEL ANSELMO [facility] [id number] [facility] Maria Seybold 2024-04-22 08:00:00 2024-04-22 08:00:00 Outpatient LUZ MARIA HOLLIDAY [id number] [facility] 2024-04-12 09:40:00 2024-04-12 09:40:00 Outpatient TIFFANY, BROOK [facility] [id number] [facility] 2024-04-11 08:00:00 2024-04-11 08:00:00 Outpatient LUZ MARIA HOLLIDAY [id number] Luz Maria [facility] 2024-04-11 00:00:00 2024-04-11 00:00:00 Outpatient GIBRAN MCADAMS [id number] Luz [facility] 2024-04-08 16:30:00 2024-04-08 16:30:00 Outpatient MACKENZIE LEANDRO [facility] [id number] Luz [facility] 2024-04-04 08:10:00 2024-04-04 08:10:00 Outpatient LAB90 LUZ MARIA HOLLIDAY [id number] Luz Maria [facility] 2024-04-02 08:39:00 2024-04-02 12:55:00 Emergency X Trevor TAYLOR K [facility] ERT [id number] [facility] 2024-04-02 08:39:00 2024-04-02 12:55:00 Emergency Trevor [facility] 1.2.840.114 350.1.13.10 4.2.7.2.686 [id number] [facility] 2024-04-02 00:00:00 2024-04-02 00:00:00 Outpatient GERALD VIDAL [id number] Luz Maria [facility] 2024-03-30 09:00:00 2024-03-30 09:00:00 Outpatient LAB47 LUZ MARIA HOLLIDAY [id number] Luz Maria [facility] 2024-03-30 08:30:00 2024-03-30 08:30:00 Outpatient GIBRAN MCADAMS [id number] Luz Maria [facility] 2024-03-30 00:00:00 2024-03-30 00:00:00 Outpatient GIBRAN MCADAMS [id number] Luz Maria [facility] 2024-03-30 00:00:00 2024-03-30 00:00:00 Outpatient ANSELMO GENAO [id number] [facility] 2024-03-28 00:00:00 2024-03-28 00:00:00 Outpatient PREZAS, ANSELMO HOLLIDAY [id number] Luz Maria Ng 2024-03-23 00:00:00 2024-03-23 00:00:00 Outpatient PREZAANSELMO Genao [id number] Luz Maria Ng 2024-02-29 00:00:00 2024-02-29 13:30:22 Letter (Out) Karl Ferguson [facility] 1..840.114 350.1.13.10 4.2.7.2.686 [id number] [facility] 2024-02-24 00:00:00 2024-02-24 00:00:00 Outpatient MELINA GOLDBERG [id number] [facility] 2024-02-24 00:00:00 2024-02-24 00:00:00 Outpatient PREZAS, ANSELMO HOLLIDAY [id number] [facility] 2024-02-22 00:00:00 2024-02-22 14:50:01 Letter (Out) Elida Lewis [facility] 1..840.114 350.1.13.10 4.2.7.2.686 [id number] [facility] 2024-02-22 00:00:00 2024-02-22 00:00:00 Outpatient PREZAS, ANSELMO HOLLIDAY [id number] [facility] 2024-02-20 21:47:00 2024-02-20 23:54:00 Emergency X LETI RIVAS ERICCA [facility] ERT [id number] [facility] 2024-02-20 21:47:00 2024-02-20 23:54:00 Emergency Leti Rivas [facility] ..840.114 350.1.13.10 4.2.7.2.686 [id number] [facility] 2024-01-26 00:00:00 2024-01-26 00:00:00 Outpatient ANGIEZAANSELMO Genao [id number] [facility] 2024-01-15 00:00:00 2024-01-15 00:00:00 Outpatient PREZAANSELMO Genao [id number] [facility] 2023-12-28 00:00:00 2023-12-28 00:00:00 Outpatient PREZABirgit, ANSELMO HOLLIDAY [id number] [facility] 2023-12-18 00:00:00 2023-12-18 00:00:00 Outpatient LUZ MARIA HOLLIDAY [id number] [facility] 2023-12-17 15:30:00 2023-12-17 15:30:00 Outpatient PREZAANSELMO Genao [id number] [facility] 2023-12-11 00:00:00 2023-12-11 00:00:00 Outpatient PREZABirgit, ANSELMO HOLLIDAY [id number] Luz Maria [facility] 2023-12-09 20:14:00 2023-12-09 23:50:00 Emergency X RUDY ORANTESMAGDIEL [facility] ERT [id number] [facility] 2023-12-09 20:14:00 2023-12-09 23:50:00 Emergency Abraham Orantes S [facility] ..840.114 350.1.13.10 4.2.7.2.686 [id number] [facility] 2023-11-24 00:00:00 2023-11-24 00:00:00 Outpatient ANSELMO GENAO [id number] Luz Maria [facility] 2023-11-18 00:00:00 2023-11-18 00:00:00 Letter (Out) Chavez Turner [facility] ..840.114 350.1.13.10 4.2.7.2.686 [id number] [facility] 2023-11-10 14:00:00 2023-11-10 14:00:00 Outpatient ANSELMO GENAO LUZ MARIA [id number] [facility] 2023-11-09 00:00:00 2023-11-09 00:00:00 Outpatient ANSELMO GENAO [facility] [id number] [facility] 2023-11-06 00:00:00 2023-11-06 00:00:00 Outpatient ANSELMO GENAO [facility] [id number] [facility] 2023 11:30:00 2023 11:30:00 Outpatient CALLIE THORNE JULIANA [facility] [id number] [facility] 2023-10-16 00:00:00 2023-10-16 00:00:00 Outpatient ANSELMO GENAO [facility] MAR[facility]LLIDAY [id number] [facility] 2023-10-13 00:00:00 2023-10-13 00:00:00 Outpatient LUZ MARIA HOLLIDAY [id number] Luz Maria [facility] 2023-10-06 14:30:00 2023-10-06 14:30:00 Outpatient ANSELMO GENAO [facility] MAR[facility] HOLL[facility] [id number] [facility] 2023-08-14 00:00:00 2023-08-14 00:00:00 Outpatient MERLYN WORTHINGTON [facility] [id number] [facility] 2023-08-13 00:00:00 2023-08-13 00:00:00 Patient Secure Msg Doctor Unassigned, [place] [facility] 1.2.840.114 350.1.13.10 4.2.7.2.686 [id number] [facility] 2023-08-11 16:15:00 2023-08-11 16:15:00 Outpatient HENRIK ADAN HOLLIDAY [id number] [facility] 2023-08-03 20:26:00 2023-08-04 00:05:00 Emergency X ABRAHAM ORANTES [facility] ERT [id number] [facility] 2023-08-03 20:26:00 2023-08-04 00:05:00 Emergency Abraham Orantes [facility] 1.2.840.114 350.1.13.10 4.2.7.2.686 [id number] [facility] 2023-08-03 00:00:00 2023-08-03 00:00:00 Outpatient KIARA RICHARDSON [id number] [facility] Ng 2023-08-03 00:00:00 2023-08-03 00:00:00 Orders Only Doctor Unassigned, [place] [facility] 1..840.114 350.1.13.10 4.2.7.2.686 [id number] [facility] 2023-07-25 09:58:00 2023-07-25 12:56:00 Emergency X Trevor TAYLOR [facility] [id number] [facility] 2023-07-25 09:58:00 2023-07-25 12:56:00 Emergency Trevor Taylor Tiffanie [facility] 1.2.840.114 350.1.13.10 4.2.7.2.686 [id number] [facility] 2023-07-24 12:36:00 2023-07-24 17:49:00 Emergency X STEFANIAJOHNATHAN Sharma [facility] ERT [id number] [facility] 2023-07-24 12:36:00 2023-07-24 17:49:00 Emergency Johnathan Avila [facility] 1.2.840.114 350.1.13.10 4.2.7.2.686 [id number] [facility] 2023-07-24 14:30:00 2023-07-24 14:30:00 Outpatient ADAN CHESTER LUZ MARIA HOLLIDAY [id number] [facility] 2023-07-24 00:00:00 2023-07-24 00:00:00 Telephone [facility] 1.2.840.114 350.1.13.10 4.2.7.2.686 [id number] [facility] 2023-07-23 05:22:00 2023-07-23 10:02:00 Emergency EM Jessie Paul [facility] [id number] [facility] 2023-07-22 00:00:00 2023-07-22 00:00:[address] [facility] 1..840.114 350.1.13.10 4.2.7.2.686 [id number] [facility] 2023-07-22 00:00:00 2023-07-22 00:00:00 Patient Secure Msg Doctor Unassigned, [place] [facility] 1..840.114 350.1.13.10 4.2.7.2.686 [id number] [facility] 2023-07-20 00:00:00 2023-07-20 00:00:[address] [facility] ..840.114 350.1.13.10 4.2.7.2.686 [id number] [facility] 2023-07-17 13:45:00 2023-07-17 13:45:00 Outpatient JIMMY BRENNAN [id number] Luz Maria [facility] 2023-07-11 20:53:00 2023-07-11 23:38:00 Emergency X STEPHIE HEWITT [facility] ERT [id number] [facility] 2023-07-11 20:53:00 2023-07-11 23:38:00 Emergency Kallie McdonnellSteph[facility] 1.2.840.114 350.1.13.10 4.2.7.2.686 [id number] [facility] 2023-07-10 08:45:00 2023-07-10 12:03:37 Outpatient R MERLYN HIDALGO [facility] [id number] [facility] 2023-07-10 08:45:00 2023-07-10 12:03:37 Office Visit Merlyn Hidalgo [facility] 1..840.114 350.1.13.10 4.2.7.2.686 [id number] [facility] 2023-07-10 00:00:00 2023-07-10 00:00:00 Orders Only Doctor Unassigned, [place] [facility] 1..840.114 350.1.13.10 4.2.7.2.686 [id number] [facility] 2023-07-08 09:15:00 2023-07-08 09:15:00 Outpatient KIARA RICHARDSON [id number] Luz Maria Ng 2023-07-03 04:49:00 2023-07-03 09:47:00 Emergency MIRIAM LIN [facility] [id number] [facility] 2023-07-03 04:49:00 2023-07-03 09:47:00 Emergency Haresh Santamaria Dietrich [facility] 1.840.114 350.1.13.10 4.2.7.2.686 [id number] [facility] 2023-07-01 22:56:00 2023-07-02 01:00:00 Emergency Jsesie Billingsley [facility] ER [id number] [facility] 2023-05-20 15:50:00 2023-05-20 15:50:00 Outpatient LAB56 LUZ MARIA HOLLIDAY [id number] Luz Maria Ng 2023-05-20 15:15:00 2023-05-20 15:15:00 Outpatient KIARA RICHARDSON LUZ MARIA [id number] Luz Maria Ng 2023-05-07 17:37:00 2023-05-07 23:23:00 Emergency X MANFRED KAN [facility] ERT [id number] [facility] 2023-05-07 17:37:00 2023-05-07 23:23:00 Emergency Kelsi sharma [facility] 1.2.840.114 350.1.13.10 4.2.7.2.686 [id number] [facility] 2023-05-01 21:39:00 2023-05-02 00:35:00 Emergency X AYDIN MATOS [facility] ERT [id number] [facility] 2023-05-01 21:39:00 2023-05-02 00:35:00 Emergency Carlo Aydin [facility] 1.2.840.114 350.1.13.10 4.2.7.2.686 [id number] [facility] 2023-04-22 03:51:00 2023-04-22 13:11:00 Emergency X DON [facility] ERT [id number] [facility] 2023-04-22 03:51:00 2023-04-22 13:11:00 Emergency Abraham Orantes [facility] 1.2.840.114 350.1.13.10 4.2.7.2.686 [id number] [facility] 2023-04-16 07:09:00 2023-04-16 09:00:00 Emergency X ADELAIDE GOODWIN [facility] ERT [id number] [facility] 2023-04-16 07:09:00 2023-04-16 09:00:00 Emergency Adelaide Goodwin [facility] 1.2840.114 350.1.13.10 4.2.7.2.686 [id number] [facility] 2023-03-31 23:59:00 2023-04-01 03:24:00 Emergency X HEMALATHA MORA [facility] ERT [id number] [facility] 2023-03-31 23:59:00 2023-04-01 03:24:00 Emergency Hemalatha Mora [facility] 1.2840.114 350.1.13.10 4.2.7.2.686 [id number] [facility] 2023-02-13 16:02:00 2023-02-13 17:25:00 Emergency X BRIGHTJESSICA [facility] ERT [id number] [facility] 2023-02-13 16:02:00 2023-02-13 17:25:00 Emergency Jessica Gonzales S [facility] 1.2840.114 350.1.13.10 4.2.7.2.686 [id number] [facility] 2023-01-05 00:00:00 2023-01-05 00:00:00 Orders Only Doctor Unassigned, [place] [facility] 1.2840.114 350.1.13.10 4.2.7.2.686 [id number] [id number] [facility] 2022-12-29 17:25:40 2022-12-29 17:25:40 Outpatient [facility] [id number] 0417 Dewey Ponce 2022-12-09 00:01:00 2022-12-09 01:39:00 Emergency X SOHAM CLARKE [facility] ERT [id number] [facility] 2022-12-09 00:01:00 2022-12-09 01:39:00 Emergency Soham Clarke [facility] 1.2840.114 350.1.13.10 4.2.7.2.686 [id number] [facility] 2022-11-24 23:44:00 2022-11-25 02:56:00 Emergency X AYDIN MATOS [facility] ERT [id number] [facility] 2022-11-24 23:44:00 2022-11-25 02:56:00 Emergency Lion Rodriguez [facility] 1.2.840.114 350.1.13.10 4.2.7.2.686 [id number] [facility] 2022-10-25 00:00:00 2022-10-25 00:00:00 Patient Secure Msg Doctor Unassigned, [place] [facility] 1.2840.114 350.1.13.10 4.2.7.2.686 [id number] [facility] 2022-10-23 00:00:00 2022-10-23 00:00:00 Orders Only Doctor Unassigned, [place] [facility] 1.2840.114 350.1.13.10 4.2.7.2.686 [id number] [facility] 2022-10-11 06:41:00 2022-10-12 17:56:00 Outpatient X MARK HERNANDEZ [facility] MARTI [id number] [facility] 2022-10-11 06:41:00 2022-10-12 17:56:00 Emergency Aydin Matos Norman M JENNIE [facility] 1.2840.114 350.1.13.10 4.2.7.2.686 [id number] [facility] 2022-10-08 22:15:00 2022-10-09 01:39:00 Emergency X ABRAHAM ORANTES [facility] ERT [id number] [facility] 2022-10-08 22:15:00 2022-10-09 01:39:00 Emergency Abraham Orantes [facility] 1.2.840.114 350.1.13.10 4.2.7.2.686 [id number] [facility] 2022-10-08 00:00:00 2022-10-08 00:00:00 Orders Only Doctor Unassigned, [place] [facility] 1.2.840.114 350.1.13.10 4.2.7.2.686 [id number] [id number] [facility] 2022-08-20 08:42:00 2022-08-20 12:19:00 Emergency X Trevor TAYLOR [facility] ERT [id number] [facility] 2022-08-20 08:42:00 2022-08-20 12:19:00 Emergency Trevor Taylor [facility] 1.2.840.114 350.1.13.10 4.2.7.2.686 [id number] [facility] 2022-07-11 00:00:00 2022-07-11 00:00:00 OFFICE VISIT NEW PT LEVEL 3 STLMLC STLMLC [id number] [facility] 2022-07-09 10:07:22 2022-07-09 10:07:[address] [facility] [id number] 1026 Dewey Ponce 2022-07-09 00:00:00 2022-07-09 00:00:00 Outpatient Visit [id number] 2022-06-09 06:57:00 2022-06-09 10:27:00 Emergency SOHAM BOLANOS [facility] ERT [id number] [facility] 2022-06-09 06:57:00 2022-06-09 10:27:00 Emergency Soham Clarke [facility] 1.2.840.114 350.1.13.10 4.2.7.2.686 [id number] [facility] 2022-06-09 00:00:00 2022-06-09 00:00:00 Orders Only Doctor Unassigned, [place] [facility] 1.2.840.114 350.1.13.10 4.2.7.2.686 [id number] [id number] [facility] 2021-11-04 00:00:00 2021-11-04 00:00:00 Transition of Care CarrollEllen 1.2.840.114 350.1.13.10 4.2.7.2.686 [id number] [facility] 2021-10-30 13:39:00 2021-11-01 13:45:00 Inpatient X EMELIA GALLEGO [facility] [id number] [facility] 2021-10-30 13:39:00 2021-11-01 13:45:00 Hospital Encounter Madison Sepulveda David [facility] 1.2.840.114 350.1.13.10 4.2.7.2.686 [id number] [id number] [facility] 2021-10-30 00:00:00 2021-10-30 00:00:00 Orders Only Doctor Unassigned, [place] [facility] 1.2.840.114 350.1.13.10 4.2.7.2.686 [id number] [id number] [facility] 2021-05-23 20:42:00 2021-05-24 01:42:00 Emergency Felipe Ortega [facility] 1.2.840.114 350.1.13.10 4.2.7.2.686 [id number] 084 [id number] [facility] 2021-05-23 20:42:00 2021-05-23 20:42:00 Emergency X FELIPE ORTEGA [facility] ERT [id number] [facility] 2021-05-22 18:37:00 2021-05-22 21:40:00 Emergency Gabriella Zarate [facility] 1.2.840.114 350.1.13.10 4.2.7.2.686 [id number] [id number] [facility] 2021-05-22 18:31:00 2021-05-22 18:31:00 Emergency X [facility] ERT [id number] [facility] 2021-05-07 11:11:35 2021-05-07 11:11:42 Imm/Inj Visit Nurse, Malika Pogay Immunizatio David Godinez [facility] Professio [facility] 1.2.840.114 350.1.13.10 4.2.7.2.686 [id number] [facility] 2021-05-01 19:09:00 2021-05-01 20:46:00 [facility] 1.2.840.114 350.1.13.10 4.2.7.2.686 [id number] 084 [id number] [facility] 2021-05-01 18:53:00 2021-05-01 18:53:00 Emergency X [facility] ERT [id number] [facility] 2021-04-01 20:06:00 2021-04-01 21:56:00 Emergency Hortencia Blantonanne [facility] 1.2840.114 350.1.13.10 4.2.7.2.686 [id number] [id number] 2021-04-01 20:06:00 2021-04-01 21:56:00 Emergency Blanton, [facility] 1.2.840.114 350.1.13.10 4.2.7.2.686 [id number] [facility] 2021-04-01 20:06:00 2021-04-01 20:06:00 Emergency X NIKHIL BLANTON [facility] ERT [id number] [facility] 2021-03-17 20:09:00 2021-03-17 22:19:00 Emergency BlantonNikhil ambrocio [facility] 1.2.840.114 350.1.13.10 4.2.7.2.686 [id number] 084 [id number] 2021-03-17 20:09:00 2021-03-17 22:19:00 Emergency BlantonNikhil ambrocio [facility] 1.2.840.114 350.1.13.10 4.2.7.2.686 [id number] [facility] 2021-03-17 19:56:00 2021-03-17 19:56:00 Emergency X [facility] ERT [id number] [facility] 2020-11-15 00:00:00 2020-11-15 00:00:00 Telephone Pcp, Patient Does Not Have A [facility] 1.2.840.114 350.1.13.10 4.2.7.2.686 [id number] 2020-11-15 00:00:00 2020-11-15 00:00:00 Letter (Out) IsabelaMirna perez [facility] 1.2.840.114 350.1.13.10 4.2.7.2.686 [id number] 2020-11-15 00:00:00 2020-11-15 00:00:00 Letter (Out) Mirna Mar [facility] 1.2.840.114 350.1.13.10 4.2.7.2.686 [id number] [facility] 2020-11-15 00:00:00 2020-11-15 00:00:00 Telephone Pcp, Patient Does Not Have A [facility] 1.2.840.114 350.1.13.10 4.2.7.2.686 [id number] 019 [id number] [facility] 2020-11-14 21:29:00 2020-11-14 22:55:00 Emergency Darnell Hsu [facility] 1.2.840.114 350.1.13.10 4.2.7.2.686 [id number] 2020-11-14 21:29:00 2020-11-14 22:55:00 Emergency Darnell Hsu [facility] 1.2.840.114 350.1.13.10 4.2.7.2.686 [id number] [facility] 2020-11-14 21:29:00 2020-11-14 22:55:00 Emergency X DARNELL HSU [facility] ERT [id number] [facility] 2020-09-30 08:03:00 2020-09-30 10:45:00 Emergency Jessy Siddiqui [facility] 1.2.840.114 350.1.13.10 4.2.7.2.686 [id number] [id number] 2020-09-30 08:03:00 2020-09-30 10:45:00 Emergency Jessy Siddiqui [facility] 1.2.840.114 350.1.13.10 4.2.7.2.686 [id number] [facility] 2020-09-30 07:58:00 2020-09-30 07:58:00 Emergency X [facility] ERT [id number] [facility] 2020-09-30 00:00:00 2020-09-30 00:00:00 Orders Only Doctor Unassigned, [place] [facility] 1.2.840.114 350.1.13.10 4.2.7.2.686 [id number] 2020-09-30 00:00:00 2020-09-30 00:00:00 Orders Only Doctor Unassigned, [place] [facility] 1.2.840.114 350.1.13.10 4.2.7.2.686 [id number] [facility] 2020-07-01 21:58:00 2020-07-01 23:54:00 Emergency Felipe Ortega [facility] 1.2.840.114 350.1.13.10 4.2.7.2.686 [id number] 2020-07-01 21:58:00 2020-07-01 23:54:00 Emergency Felipe Ortega [facility] 1.2.840.114 350.1.13.10 4.2.7.2.686 [id number] [facility] 2020-07-01 21:58:00 2020-07-01 21:58:00 Emergency X FELIPE ORTEGA [facility] ERT [id number] [facility] Results Test Description Test Time Test Comments Results Result Comments Source US Gall bladder 01:45:45 EXAM: US GALL BLADDER HISTORY: 54 years-old Male; Provided indication: RUQ abd pain, r/o acutecholecystitis . TECHNIQUE: Limited abdominal ultrasound focused on the gallbladder wasperformed. The main portal vein was evaluated with color Doppler.Photoengraving Photographer images were obtained for the record. COMPARISON: [...] assessed due to pain medication. OTHER: None. [facility] [id number] 23:38:46* Test Item Value Reference Range Interpretation Comme nts TROPONIN I (test code = 3435849541) 0.004 ng/mL <=0.034 KRYSTLE (test code = [...] of biotin. Lab Interpretation (test code = 53247-8) Normal [facility] 2 [id number] 23:34:49Exam: Chest (2 Views), 06/07/2024 5:00 PM. Ordering Physician: LUKE CLARKE. History: sob . Technique: Two views of the chest. Comparison: Chest radiograph 07/11/2023. Findings: No focal consolidation. No pneumothorax or effusion. Normal size of thecardiac silhouette. No acute osseous finding.[facility] ClubD-[id number] 23:30:44* Test Item Value Reference Range Interpretation Comments D-DIMER (test code = 2928467135) 0.22 See_Comment [Automated message] The system which [...] a diagnosis. Lab Interpretation (test code = 15524-0) Normal [facility]. METABOLIC PANEL (95607)2024-06-07 23:28:22* Test Item Value Reference Range Interpretation Comme nts NA (test code = 7656441198) 136 mmol/L 135-145 K (test code = 7815744538) 4.1 mmol/L 3.5-5.0 CL (test code = 9515970721) 103 mmol/L 98-108 CO2 TOTAL (test code = 1836325399) 25 mmol/L 23-31 AGAP (test code = 1631450792) 8 2-16 BUN (test code = 7261335065) 19 mg/dL 7-23 GLUCOSE (test code = 5689178540) 89 mg/dL 70-110 CREATININE (test code = 2160-0) 0.99 mg/dL 0.60-1.25 TOTAL BILI (test code = 4835743825) 1.1 mg/dL 0.1-1.1 CALCIUM (test code = 8997926948) 9.3 mg/dL 8.6-10.6 T PROTEIN (test code = 8637784679) 8.8 g/dL 6.3-8.2 H ALBUMIN (test code = 7267144660) 4.8 g/dL 3.5-5.0 ALK PHOS (test code = 7019265209) 51 U/L 34-122 ALTv (test code = 1742-6) 27 U/L 5-50 AST(SGOT) (test code = 9783114788) 35 U/L 13-40 eGFR (test code = 95649-2) 92.2 mL/min/1.73m2 CKD-EPI eGFR (2020). Assuming creatinine has been stable day-to-day for at least three months, the eGFR indicates Category G1 (>= 90 mL/min/1.73 m2) Lab Interpretation (test code = 50452-0) Abnormal [facility] ClubMagnesium2024-09-24 23:28:02* Test Item Value Reference Range Interpretation Comme nts MAGNESIUM (test code = 6286842667) 1.8 mg/dL 1.7-2.4 Lab Interpretation (test cod e = 48806-0) Normal [facility] Club[facility]IPASE2024-09-24 23:28:02* Test Item Value Reference Range Interpretation Comme nts LIPASE (test code = 6970026273) 67 U/L 0-220 Lab Interpretation (test cod e = 39052-7) Normal [facility] ClubCreatine Njiopc7524-02-42 23:27:41* Test Item Value Reference Range Interpretation Comme nts CK (test code = 0145852294) 475 U/L 33-194 H Lab Interpretation (test cod e = 64434-1) Abnormal [facility] ClubCBC WITH [id number] 23:13:43* Test Item Value Reference Range Interpretation [...] 34.2 g/dL 31.2-35.0 RDW-SD (test code = 96717-1) 42.2 fL 38.5-51.6 RDW-CV (test code = 788-0) 13.0 % 12.1-15.4 PLT (test code = 777-3) 219 150-328 MPV (test code = 09841-3) 9.9 fL 9.8-13.0 NRBC/100 WBC (test code = 6057884761) 0.0 0.0-10.0 NRBC x10^3 (test code = 7117239925) See_Comment [Automated messa ge] The system which generated this result transmitted reference range: 10*3/?L. The reference range was not used to interpret this result as normal/abnormal. GRAN MAT (NEUT) % (test code = 770-8) 77.8 % IMM GRAN % (test code = 5147439275) 0.30 % LYMPH % (test code = 736-9) 15.6 % MONO % (test code = 5905-5) 5.7 % EOS % (test code = 713-8) 0.5 % BASO % (test code = 706-2) 0.1 % GRAN MAT x10^3(ANC) (test code = 4488409960) 5.87 10*3/uL 1.99-6.95 IMM GRAN x10^3 (test code = 4171856342) 0.00-0.06 LYMPH x10^3 (test code = 731-0) 1.18 10*3/uL 1.09-3.23 MONO x10^3 (test code = 742-7) 0.43 10*3/uL 0.36-1.02 EOS x10^3 (test code = 711-2) 0.04 10*3/uL 0.06-0.53 L BASO x10^3 (test code = 704-7) 0.01-0.09 Lab Interpretation (test code = 02832-9) Abnormal [facility] ClubTroponin [id number] 15:49:54* Test Item Value Reference Range Interpretation Comme nts TROPONIN I (test code = 3903538593) <=0.034 KRYSTLE (test code = KRYSTLE) Reference [...] of biotin. Lab Interpretation (test code = 01076-3) Normal [facility] ClubCT ABDOMEN PELVIS W [id number] 15:06:25CT ABDOMEN PELVIS W CONTRAST HISTORY: 53 [...] hernia is seen. Degenerative changes atL5-S1 level noted.[facility]. Metabolic Panel (19004)2024-04-02 14:58:53* Test Item Value Reference Range Interpretation Comme nts NA (test code = 2778383370) 138 mmol/L 135-145 K (test code = 3830217048) 4.6 mmol/L 3.5-5.0 CL (test code = 3107212125) 105 mmol/L 98-108 CO2 TOTAL (test code = 6118281781) 28 mmol/L 23-31 AGAP (test code = 5186499183) 5 2-16 BUN (test code = 3420832439) 19 mg/dL 7-23 GLUCOSE (test code = 9829280454) 117 mg/dL 70-110 H CREATININE (test code = 2160-0) 0.91 mg/dL 0.60-1.25 TOTAL BILI (test code = 3574738706) 0.8 mg/dL 0.1-1.1 CALCIUM (test code = 9283870156) 9.2 mg/dL 8.6-10.6 T PROTEIN (test code = 5690157450) 8.4 g/dL 6.3-8.2 H ALBUMIN (test code = 1023919638) 4.4 g/dL 3.5-5.0 ALK PHOS (test code = 9740510341) 58 U/L 34-122 ALTv (test code = 1742-6) 28 U/L 5-50 AST(SGOT) (test code = 6778047244) 33 U/L 13-40 eGFR (test code = 02098-4) 102.0 mL/min/1.73m2 CKD-EPI eGFR (2020). Assuming creatinine has been stable day-to-day for at least three months, the eGFR indicates Category G1 (>= 90 mL/min/1.73 m2) Lab Interpretation (test code = 88198-9) Abnormal [facility] ClubLipid Panel (38671)(Total Cholesterol, Triglycerides, HDL)2024-04-02 14:58:53* Test Item Value Reference Range Interpretation Comme nts CHOL (test code = 8256913209) 190 mg/dL 120-200 HDL (test code = 6171302798) 37 mg/dL >=40 L HDLC RATIO (test code = 0007392026) 5.1 <=5.0 H TRIG (test code = 0706559792) 107 mg/dL 30-170 LDL CHOL (test code = 61587-0) 132 mg/dL <=160 VLDL (test code = 5627447512) 21 mg/dL 5-60 Lab Interpretation (test cod e = 30294-2) Abnormal [facility] ClubMagnesium2024-07-20 14:58:32* Test Item Value Reference Range Interpretation Comme nts MAGNESIUM (test code = 3196486636) 1.9 mg/dL 1.7-2.4 Lab Interpretation (test cod e = 12599-8) Normal [facility] ClubLipase2024-07-20 14:58:12* Test Item Value Reference Range Interpretation Comme nts LIPASE (test code = 8253864310) 384 U/L 0-220 H Lab Interpretation (test cod e = 45668-4) Abnormal [facility] ClubCbc with [id number] 14:40:51* Test Item Value Reference Range Interpretation [...] 35.0 g/dL 31.2-35.0 RDW-SD (test code = 95636-3) 41.7 fL 38.5-51.6 RDW-CV (test code = 788-0) 13.3 % 12.1-15.4 PLT (test code = 777-3) 216 150-328 MPV (test code = 04454-4) 9.9 fL 9.8-13.0 NRBC/100 WBC (test code = 3700248248) 0.0 0.0-10.0 NRBC x10^3 (test code = 4763022429) See_Comment [Automated me ssage] The system which generated this result transmitted reference range: 10*3/?L. The reference range was not used to interpret this result as normal/abnormal. GRAN MAT (NEUT) % (test code = 770-8) 44.1 % IMM GRAN % (test code = 1813322478) 0.40 % LYMPH % (test code = 736-9) 45.4 % MONO % (test code = 5905-5) 8.4 % EOS % (test code = 713-8) 1.1 % BASO % (test code = 706-2) 0.6 % GRAN MAT x10^3(ANC) (test code = 2477162860) 2.31 10*3/uL 1.99-6.95 IMM GRAN x10^3 (test code = 2984851904) 0.00-0.06 LYMPH x10^3 (test code = 731-0) 2.38 10*3/uL 1.09-3.23 MONO x10^3 (test code = 742-7) 0.44 10*3/uL 0.36-1.02 EOS x10^3 (test code = 711-2) 0.06 10*3/uL 0.06-0.53 BASO x10^3 (test code = 704-7) 0.03 10*3/uL 0.01-0.09 [facility] ClubCOMP. METABOLIC PANEL (67197)2024-02-21 03:54:20* Test Item Value Reference Range Interpretation Comme nts NA (test code = 7280545030) 137 mmol/L 135-145 K (test code = 5374170827) 3.9 mmol/L 3.5-5.0 CL (test code = 0156928773) 106 mmol/L 98-108 CO2 TOTAL (test code = 4471252517) 26 mmol/L 23-31 AGAP (test code = 7947826307) 5 2-16 BUN (test code = 3535911353) 14 mg/dL 7-23 GLUCOSE (test code = 5720023601) 128 mg/dL 70-110 H CREATININE (test code = 2160-0) 0.98 mg/dL 0.60-1.25 TOTAL BILI (test code = 5785348966) 0.5 mg/dL 0.1-1.1 CALCIUM (test code = 0782852918) 8.6 mg/dL 8.6-10.6 T PROTEIN (test code = 8833237758) 7.4 g/dL 6.3-8.2 ALBUMIN (test code = 2522297116) 4.1 g/dL 3.5-5.0 ALK PHOS (test code = 4933375775) 66 U/L 34-122 ALTv (test code = 1742-6) 25 U/L 5-50 AST(SGOT) (test code = 3597444014) 39 U/L 13-40 eGFR (test code = 78999-7) 93.4 mL/min/1.73m2 CKD-EPI eGFR (2020). Assuming creatinine has been stable day-to-day for at least three months, the eGFR indicates Category G1 (>= 90 mL/min/1.73 m2) Lab Interpretation (test code = 43375-5) Abnormal [facility] ClubLIPASE2024-06-09 03:53:40* Test Item Value Reference Range Interpretation Comme nts LIPASE (test code = 0919370182) 117 U/L 0-220 Lab Interpretation (test cod e = 41761-6) Normal [facility] WITH [id number] 03:39:58* Test Item Value Reference Range Interpretation [...] 34.8 g/dL 31.2-35.0 RDW-SD (test code = 18032-2) 40.3 fL 38.5-51.6 RDW-CV (test code = 788-0) 12.7 % 12.1-15.4 PLT (test code = 777-3) 216 150-328 MPV (test code = 89177-3) 9.6 fL 9.8-13.0 L NRBC/100 WBC (test code = 5133781032) 0.0 0.0-10.0 NRBC x10^3 (test code = 3864956951) See_Comment [Automated messa ge] The system which generated this result transmitted reference range: 10*3/?L. The reference range was not used to interpret this result as normal/abnormal. GRAN MAT (NEUT) % (test code = 770-8) 32.8 % IMM GRAN % (test code = 7887290054) 0.20 % LYMPH % (test code = 736-9) 58.5 % MONO % (test code = 5905-5) 6.6 % EOS % (test code = 713-8) 1.4 % BASO % (test code = 706-2) 0.5 % GRAN MAT x10^3(ANC) (test code = 8126822561) 1.94 10*3/uL 1.99-6.95 L IMM GRAN x10^3 (test code = 5213114682) 0.00-0.06 LYMPH x10^3 (test code = 731-0) 3.46 10*3/uL 1.09-3.23 H MONO x10^3 (test code = 742-7) 0.39 10*3/uL 0.36-1.02 EOS x10^3 (test code = 711-2) 0.08 10*3/uL 0.06-0.53 BASO x10^3 (test code = 704-7) 0.03 10*3/uL 0.01-0.09 Lab Interpretation (test code = 96149-9) Abnormal [facility] with Pjqn1220-75-21 03:17:11* Test Item Value Reference Range Interpretation [...] 34.8 g/dL 31.2-35.0 RDW-SD (test code = 78502-8) 39.9 fL 38.5-51.6 RDW-CV (test code = 788-0) 12.7 % 12.1-15.4 PLT (test code = 777-3) 240 150-328 MPV (test code = 71320-3) 9.8 fL 9.8-13.0 NRBC/100 WBC (test code = 1208146618) 0.0 0.0-10.0 NRBC x10^3 (test code = 2620743655) See_Comment [Automated messa ge] The system which generated this result transmitted reference range: 10*3/?L. The reference range was not used to interpret this result as normal/abnormal. GRAN MAT (NEUT) % (test code = 770-8) 31.3 % IMM GRAN % (test code = 2200633618) 0.00 % LYMPH % (test code = 736-9) 57.3 % MONO % (test code = 5905-5) 9.3 % EOS % (test code = 713-8) 1.6 % BASO % (test code = 706-2) 0.5 % GRAN MAT x10^3(ANC) (test code = 4752210133) 1.94 10*3/uL 1.99-6.95 L IMM GRAN x10^3 (test code = 5712621401) 0.00-0.06 LYMPH x10^3 (test code = 731-0) 3.56 10*3/uL 1.09-3.23 H MONO x10^3 (test code = 742-7) 0.58 10*3/uL 0.36-1.02 EOS x10^3 (test code = 711-2) 0.10 10*3/uL 0.06-0.53 BASO x10^3 (test code = 704-7) 0.03 10*3/uL 0.01-0.09 Lab Interpretation (test code = 54580-9) [facility] (34453)2023-12-10 03:13:49* Test Item Value Reference Range Interpretation Comme nts NA (test code = 4807738362) 141 mmol/L 135-145 K (test code = 5711329916) 4.3 mmol/L 3.5-5.0 CL (test code = 8986649549) 107 mmol/L 98-108 CO2 TOTAL (test code = 1337953673) 26 mmol/L 23-31 AGAP (test code = 0796514768) 8 2-16 BUN (test code = 8883830877) 20 mg/dL 7-23 GLUCOSE (test code = 2563137486) 123 mg/dL 70-110 H CREATININE (test code = 2160-0) 0.95 mg/dL 0.60-1.25 TOTAL BILI (test code = 4818484784) 0.8 mg/dL 0.1-1.1 CALCIUM (test code = 3909221788) 9.0 mg/dL 8.6-10.6 T PROTEIN (test code = 1628406503) 8.4 g/dL 6.3-8.2 H ALBUMIN (test code = 5257659183) 4.3 g/dL 3.5-5.0 ALK PHOS (test code = 8926189404) 58 U/L 34-122 ALTv (test code = 1742-6) 33 U/L 5-50 AST(SGOT) (test code = 8392038529) 52 U/L 13-40 H eGFR (test code = 37587-8) 96.9 mL/min/1.73m2 CKD-EPI eGFR (2020). Assuming creatinine has been stable day-to-day for at least three months, the eGFR indicates Category G1 (>= 90 mL/min/1.73 m2) Lab Interpretation (test code = 16167-0) [facility] W [id number] 03:12:08CT ABDOMEN PELVIS W CONTRAST HISTORY: 53 [...] lesions.[facility] BASIC METABOLIC PANEL (NA, K, CL, CO2, GLUCOSE, BUN, CREATININE, CA)2023-08-04 03:27:21* Test Item Value Reference Range Interpretation Comme nts NA (test code = 9382533013) 140 mmol/L 135-145 K (test code = 0599551096) 3.9 mmol/L 3.5-5.0 CL (test code = 2124382799) 104 mmol/L 98-108 CO2 TOTAL (test code = 1111716800) 28 mmol/L 23-31 AGAP (test code = 1204617604) 8 2-16 BUN (test code = 8566380542) 15 mg/dL 7-23 GLUCOSE (test code = 2494914687) 155 mg/dL 70-110 H CREATININE (test code = 3287712469) 1.37 mg/dL 0.60-1.25 H CALCIUM (test code = 1322067059) 9.5 mg/dL 8.6-10.6 eGFR (test code = 79658-6) 62.8 mL/min/1.73m2 CKD-EPI eGFR (2020). Assuming creatinine has been stable day-to-day for at least three months, the eGFR indicates Category G2 (60 - 89 mL/min/1.73 m2) Lab Interpretation (test code = 30061-0) Abnormal [facility] WITH [id number] 03:12:39* Test Item Value Reference Range Interpretation Comme nts WBC (test code = 6690-2) 6.98 See_Comment [Automated [employer]] The system which generated this result transmitted reference range: 4.20 - 10.70 10*3/?L. The reference range was not used to interpret this result as normal/abnormal. RBC (test code = 789-8) 5.27 See_Comment [[employer]ated [employer]] The system which generated this result transmitted [...] g/dL 31.2-35.0 H RDW-SD (test code = 06311-9) 38.1 fL 38.5-51.6 L RDW-CV (test code = 788-0) 12.3 % 12.1-15.4 PLT (test code = 777-3) 238 See_Comment [Automated messa ge] The system which generated this result transmitted reference range: 150 - 328 10*3/?L. The reference range was not used to interpret this result as normal/abnormal. MPV (test code = 32985-6) 9.8 fL 9.8-13.0 NRBC/100 WBC (test code = 2685331614) 0.0 See_Comment [Automated [employer]] The system which generated this result transmitted reference range: 0.0 - 10.0 /100 WBCs. The reference range was not used to interpret this result as normal/abnormal. NRBC x10^3 (test code = 7476228908) See_Comment [Automated messa ge] The system which generated this result transmitted reference range: 10*3/?L. The reference range was not used to interpret this result as normal/abnormal. GRAN MAT (NEUT) % (test code = 770-8) 37.8 % IMM GRAN % (test code = 1232777770) 0.30 % LYMPH % (test code = 736-9) 52.7 % MONO % (test code = 5905-5) 7.7 % EOS % (test code = 713-8) 1.1 % BASO % (test code = 706-2) 0.4 % GRAN MAT x10^3(ANC) (test code = 7845931450) 2.63 10*3/uL 1.99-6.95 IMM GRAN x10^3 (test code = 9677677842) 0.00-0.06 LYMPH x10^3 (test code = 731-0) 3.68 10*3/uL 1.09-3.23 H MONO x10^3 (test code = 742-7) 0.54 10*3/uL 0.36-1.02 EOS x10^3 (test code = 711-2) 0.08 10*3/uL 0.06-0.53 BASO x10^3 (test code = 704-7) 0.03 10*3/uL 0.01-0.09 Lab Interpretation (test code = 31945-5) [facility] [id number] 17:24:34* Test Item Value Reference Range Interpretation Comme nts TROPONIN I (test code = 1769351936) 0.018 ng/mL <=0.034 KRYSTLE (test code = [...] of biotin. Lab Interpretation (test code = 97388-8) Normal [facility] ClubMAGNESIUM2023-11-11 17:13:15* Test Item Value Reference Range Interpretation Comme nts MAGNESIUM (test code = 5029583615) 1.9 mg/dL 1.7-2.4 Lab Interpretation (test cod e = 11849-7) Normal [facility] ClubCOMP. METABOLIC PANEL (86290)2023-07-25 17:12:55* Test Item Value Reference Range Interpretation Comme nts NA (test code = 6579697843) 141 mmol/L 135-145 K (test code = 5349159416) 3.8 mmol/L 3.5-5.0 CL (test code = 2011263074) 106 mmol/L 98-108 CO2 TOTAL (test code = 3234850513) 27 mmol/L 23-31 AGAP (test code = 9869313527) 8 2-16 BUN (test code = 2979245092) 14 mg/dL 7-23 GLUCOSE (test code = 0178052238) 124 mg/dL 70-110 H CREATININE (test code = 4495145134) 0.93 mg/dL 0.60-1.25 TOTAL BILI (test code = 5172101028) 0.8 mg/dL 0.1-1.1 CALCIUM (test code = 6388696549) 9.3 mg/dL 8.6-10.6 T PROTEIN (test code = 9272578540) 8.2 g/dL 6.3-8.2 ALBUMIN (test code = 5791917665) 4.4 g/dL 3.5-5.0 ALK PHOS (test code = 8131922733) 49 U/L 34-122 ALTv (test code = 1742-6) 20 U/L 5-50 AST(SGOT) (test code = 3402179246) 28 U/L 13-40 eGFR (test code = 95427-1) 100.0 mL/min/1.73m2 CKD-EPI eGFR (2020). Assuming creatinine has been stable day-to-day for at least three months, the eGFR indicates Category G1 (>= 90 mL/min/1.73 m2) Lab Interpretation (test code = 01620-5) [facility]normal [facility]2023-11-11 17:12:35* Test Item Value Reference Range Interpretation Comme nts LIPASE (test code = 9464947444) 109 U/L 0-220 Lab Interpretation (test cod e = 55332-9) Normal [facility] WITH [id number] 16:59:59* Test Item Value Reference Range Interpretation Comme nts WBC (test code = 6690-2) 5.17 See_Comment [Automated [employer]] The system which generated this result transmitted reference range: 4.20 - 10.70 10*3/?L. The reference range was not used to interpret this result as normal/abnormal. RBC (test code = 789-8) 5.04 See_Comment [Automated [employer]] The system which generated this result transmitted [...] g/dL 31.2-35.0 H RDW-SD (test code = 49690-6) 39.2 fL 38.5-51.6 RDW-CV (test code = 788-0) 12.5 % 12.1-15.4 PLT (test code = 777-3) 207 See_Comment [Automated wavecatcha ge] The system which generated this result transmitted reference range: 150 - 328 10*3/?L. The reference range was not used to interpret this result as normal/abnormal. MPV (test code = 01420-1) 10.0 fL 9.8-13.0 NRBC/100 WBC (test code = 3162888255) 0.0 See_Comment [Automated [employer].B[employer].S[employer] ssage] The system which generated this result transmitted reference range: 0.0 - 10.0 /100 WBCs. The reference range was not used to interpret this result as normal/abnormal. NRBC x10^3 (test code = 4829179281) See_Comment [Automated wavecatcha ge] The system which generated this result transmitted reference range: 10*3/?L. The reference range was not used to interpret this result as normal/abnormal. GRAN MAT (NEUT) % (test code = 770-8) 45.8 % IMM GRAN % (test code = 8711991110) 0.20 % LYMPH % (test code = 736-9) 42.9 % MONO % (test code = 5905-5) 9.9 % EOS % (test code = 713-8) 0.8 % BASO % (test code = 706-2) 0.4 % GRAN MAT x10^3(ANC) (test code = 3936527717) 2.37 10*3/uL 1.99-6.95 IMM GRAN x10^3 (test code = 1951830049) 0.00-0.06 LYMPH x10^3 (test code = 731-0) 2.22 10*3/uL 1.09-3.23 MONO x10^3 (test code = 742-7) 0.51 10*3/uL 0.36-1.02 EOS x10^3 (test code = 711-2) 0.04 10*3/uL 0.06-0.53 L BASO x10^3 (test code = 704-7) 0.01-0.09 Lab Interpretation (test code = 00189-3) [facility]normal [facility] ClubLIPID PANEL (04123)(TOTAL CHOLESTEROL, TRIGLYCERIDES, HDL)2023-07-24 21:48:18* Test Item Value Reference Range Interpretation Comme nts CHOL (test code = 5861671271) 220 mg/dL 120-200 H HDL (test code = 7881697038) 31 mg/dL >=40 L HDLC RATIO (test code = 5880879874) 7.1 <=5.0 H TRIG (test code = 0102512225) 134 mg/dL 30-170 LDL CHOL (test code = 92474-4) 162 mg/dL <=160 H VLDL (test code = 1979723712) 27 mg/dL 5-60 Lab Interpretation (test cod e = 20452-8) Abnormal [facility] ClubComplete Metabolic Dhehp8361-27-60 20:48:07* Test Item Value Reference Range Interpretation Comme nts NA (test code = 6233066218) 141 mmol/L 135-145 K (test code = 1284493999) 3.8 mmol/L 3.5-5.0 CL (test code = 7315030990) 103 mmol/L 98-108 CO2 TOTAL (test code = 3258505885) 29 mmol/L 23-31 AGAP (test code = 5563765633) 9 2-16 BUN (test code = 4643986186) 14 mg/dL 7-23 GLUCOSE (test code = 3122077745) 102 mg/dL 70-110 CREATININE (test code = 9468368274) 0.85 mg/dL 0.60-1.25 TOTAL BILI (test code = 2084681689) 1.2 mg/dL 0.1-1.1 H CALCIUM (test code = 7515451879) 10.0 mg/dL 8.6-10.6 T PROTEIN (test code = 7140417488) 8.9 g/dL 6.3-8.2 H ALBUMIN (test code = 7344573096) 5.0 g/dL 3.5-5.0 ALK PHOS (test code = 7876604948) 52 U/L 34-122 ALTv (test code = 1742-6) 22 U/L 5-50 AST(SGOT) (test code = 2655013228) 45 U/L 13-40 H eGFR (test code = 29122-2) 105.9 mL/min/1.73m2 CKD-EPI eGFR (2020). Assuming creatinine has been stable day-to-day for at least three months, the eGFR indicates Category G1 (>= 90 mL/min/1.73 m2) Lab Interpretation (test code = 20903-4) [facility]normal [facility] ClubLipase, Tjdoq6594-17-90 20:48:07* Test Item Value Reference Range Interpretation Comme nts LIPASE (test code = 6732660232) 134 U/L 0-220 Lab Interpretation (test cod e = 01192-5) Normal [facility] ClubCB with Wkpzswjdzaiy5680-72-94 20:20:02* Test Item Value Reference Range Interpretation Comme nts WBC (test code = 6690-2) 6.91 See_Comment [Automated [employer]] The system which generated this result transmitted reference range: 4.20 - 10.70 10*3/?L. The reference range was not used to interpret this result as normal/abnormal. RBC (test code = 789-8) 5.49 See_Comment [Automated [employer]] The system which generated this result transmitted [...] 34.7 g/dL 31.2-35.0 RDW-SD (test code = 12541-7) 40.0 fL 38.5-51.6 RDW-CV (test code = 788-0) 12.7 % 12.1-15.4 PLT (test code = 777-3) 228 See_Comment [Automated messa ge] The system which generated this result transmitted reference range: 150 - 328 10*3/?L. The reference range was not used to interpret this result as normal/abnormal. MPV (test code = 37899-5) 9.5 fL 9.8-13.0 L NRBC/100 WBC (test code = 9579284060) 0.0 See_Comment [Automated me ssage] The system which generated this result transmitted reference range: 0.0 - 10.0 /100 WBCs. The reference range was not used to interpret this result as normal/abnormal. NRBC x10^3 (test code = 5869991147) See_Comment [Automated messa ge] The system which generated this result transmitted reference range: 10*3/?L. The reference range was not used to interpret this result as normal/abnormal. GRAN MAT (NEUT) % (test code = 770-8) 46.9 % IMM GRAN % (test code = 7119866093) 0.30 % LYMPH % (test code = 736-9) 42.3 % MONO % (test code = 5905-5) 9.8 % EOS % (test code = 713-8) 0.4 % BASO % (test code = 706-2) 0.3 % GRAN MAT x10^3(ANC) (test code = 8045782180) 3.24 10*3/uL 1.99-6.95 IMM GRAN x10^3 (test code = 3544276385) 0.00-0.06 LYMPH x10^3 (test code = 731-0) 2.92 10*3/uL 1.09-3.23 MONO x10^3 (test code = 742-7) 0.68 10*3/uL 0.36-1.02 EOS x10^3 (test code = 711-2) 0.03 10*3/uL 0.06-0.53 L BASO x10^3 (test code = 704-7) 0.01-0.09 Lab Interpretation (test code = 67135-1) Abnormal [facility]ELVIS W/FRXH5443-20-59 08:28:00 [facility] 1970 Sex: M PatientName: NOAH PUTNAM Unit No: [id number] EXAMS: CPT CODE: [id number] CT ABD PELVIS W/CONT 87497 EXAM: - CT ABD PELVIS W/CONT INDICATION: [...] extraluminal fluid. IMPRESSION: 1. No acute abnormality. [facility] NAME: NOAH PUTNAM [address] PHYS: HOMERO [place] [address] : 1970 AGE: 52 SEX: M LOC: Z.ERS PHONE #: [phone] EXAM DATE: 07/23/2023 STATUS: REG ER FAX #: [phone] RAD #: D/C DT PAGE 1 Signed Report (CONTINUED) Patient Name: NOAH PUTNAM Unit No: [id number] EXAMS: CPT CODE: [id number] CT ABD PELVIS W/CONT 11053 (Continued) at 0828 Reported and signed by:Kiara Meza MD CC: Jessie Paul MD Technologist: Jovanni GREEN CTDI: DLP: Trnscrpt: 07/23/2023 (08) ValerioCB5 [facility] NAME: NOAH PUTNAM PHYS: [place] [address] : 1970 AGE: 52 SEX: M LOC: Iotum PHONE #: [phone] EXAM DATE: 07/23/2023 STATUS: REG ER FAX #: [phone] RAD #: D/C DT PAGE 2 Signed Report Patient Name: NOAH PUTNAM Unit No: [id number] EXAMS: CPT CODE: [id number] CT ABD PELVIS W/CONT 55088 (Continued) Orig Print D/T: S: 07/23/2023 (0831) [facility] NAME: NOAH PUTNAM PHYS: Fabi Jessie Arguelles [place] [id number] : 1970 AGE: 52 SEX: M LOC: [employer] PHONE #: [phone] EXAM DATE: 07/23/2023 STATUS: REG ER FAX #: [phone] RAD #: D/C DT PAGE 3 Signed ReportURINALYSIS [id number] 06:32:00* Test Item Value Reference Range Interpretation [...] /mm3 NEGATIVE SOURCE OF URINE: CLEAN CATCHUA XDPZHSQWBDQ1875-91-76 06:32:00* Test Item Value Reference Range Interpretation Comme nts UA RBC (test code = RBCU) 3-5 RBC/HPF 0-3 A UA WBC (test code = XWBCU) 0-3 WBC/HPF 0-5 UA EPITHELIAL CELLS (test co de = EPIU) RARE EPI/HPF FEW UA BACTERIA (test code = XBACU) FEW NONE UA MUCUS (test code = MUCU) MODERATE #/LPF NONE A SOURCE OF URINE: CLEAN FSQTJSMXDJQ5750-57-15 06:31:00* Test Item Value Reference Range Interpretation Comme nts LIPASE (test code = LIP) 94 UNITS/L 23-300 N [id number]-[id number] 06:31:00* Test Item Value Reference Range Interpretation Comme nts TROPONIN-I (test code = TROPI) 0.019 NG/ML 0.012-0.033 N BASIC METABOLIC [id number] 06:31:00* Test Item Value Reference Range Interpretation [...] CA) 9.5 MG/DL 8.4-10.2 N HEPATIC FUNCTION [id number] 06:31:00* Test Item Value Reference Range Interpretation Comme nts TOTAL PROTEIN (test code = PROT) 9.0 G/DL 6.2-7.6 H Ortho Clinical D iagnostic has made us aware of newinformation regarding the potential interference ofEltrombopag (a bone marrow stimulant used to treatthrombocytonmenia and aplastic anemia) with specific assayson the [employer] [address] of which Total Protein is one [...] = ALKP) 57 UNITS/L 38-126 N PROTHROMBIN [id number] 06:07:00* Test Item Value Reference Range Interpretation [...] systemic embolism. 3.0 - 4.5 CBC W/O [id number] 06:00:00* Test Item Value Reference Range Interpretation [...] = NRBC#) 0.00 K/mm3 0.0-0.1 N Troponin [id number] 02:46:51* Test Item Value Reference Range Interpretation Comme nts TROPONIN I (test code = 0833579890) 0.017 ng/mL <=0.034 KRYSTLE (test code = [...] of biotin. Lab Interpretation (test code = 91904-1) Normal [facility] ClubCMP2023-10-29 02:35:28* Test Item Value Reference Range Interpretation Comme nts NA (test code = 8882252816) 138 mmol/L 135-145 K (test code = 7102941983) 3.7 mmol/L 3.5-5.0 CL (test code = 9991687592) 106 mmol/L 98-108 CO2 TOTAL (test code = 6852166068) 24 mmol/L 23-31 AGAP (test code = 8334857578) 8 2-16 BUN (test code = 4240207457) 11 mg/dL 7-23 GLUCOSE (test code = 1524710575) 165 mg/dL 70-110 H CREATININE (test code = 0611377748) 0.89 mg/dL 0.60-1.25 TOTAL BILI (test code = 0510680488) 0.2 mg/dL 0.1-1.1 CALCIUM (test code = 3110451551) 9.3 mg/dL 8.6-10.6 T PROTEIN (test code = 9482152930) 7.0 g/dL 6.3-8.2 ALBUMIN (test code = 7428457352) 4.0 g/dL 3.5-5.0 ALK PHOS (test code = 5882047288) 59 U/L 34-122 ALTv (test code = 1742-6) 23 U/L 5-50 AST(SGOT) (test code = 8274803405) 27 U/L 13-40 eGFR (test code = 3832580961) 90.5 mL/min/1.73m2 KRYSTLE (test code = KRYSTLE) [...] imaging tests). Lab Interpretation (test code = 26812-7) Abnormal [facility] with Xycs7137-88-13 02:26:10* Test Item Value Reference Range Interpretation Comme nts WBC (test code = 6690-2) 5.78 See_Comment [[employer]] The system which generated this result transmitted reference range: 4.20 - 10.70 10*3/?L. The reference range was not used to interpret this result as normal/abnormal. RBC (test code = 789-8) 4.59 See_Comment [[employer]] The system which generated this result transmitted [...] g/dL 31.2-35.0 H RDW-SD (test code = 95448-3) 38.6 fL 38.5-51.6 RDW-CV (test code = 788-0) 12.6 % 12.1-15.4 PLT (test code = 777-3) 200 See_Comment [Automated messa ge] The system which generated this result transmitted reference range: 150 - 328 10*3/?L. The reference range was not used to interpret this result as normal/abnormal. MPV (test code = 03772-0) 9.6 fL 9.8-13.0 L NRBC/100 WBC (test code = 7050545910) 0.0 See_Comment [Automated [employer]] The system which generated this result transmitted reference range: 0.0 - 10.0 /100 WBCs. The reference range was not used to interpret this result as normal/abnormal. NRBC x10^3 (test code = 4849822654) See_Comment [Automated messa ge] The system which generated this result transmitted reference range: 10*3/?L. The reference range was not used to interpret this result as normal/abnormal. GRAN MAT (NEUT) % (test code = 770-8) 36.8 % IMM GRAN % (test code = 9634388666) 0.20 % LYMPH % (test code = 736-9) 54.7 % MONO % (test code = 5905-5) 7.1 % EOS % (test code = 713-8) 0.9 % BASO % (test code = 706-2) 0.3 % GRAN MAT x10^3(ANC) (test code = 2595122768) 2.13 10*3/uL 1.99-6.95 IMM GRAN x10^3 (test code = 0033064663) 0.00-0.06 LYMPH x10^3 (test code = 731-0) 3.16 10*3/uL 1.09-3.23 MONO x10^3 (test code = 742-7) 0.41 10*3/uL 0.36-1.02 EOS x10^3 (test code = 711-2) 0.05 10*3/uL 0.06-0.53 L BASO x10^3 (test code = 704-7) 0.01-0.09 Lab Interpretation (test code = 56864-3) [facility] METABOLIC PANEL (95763)2023-07-03 10:47:01* Test Item Value Reference Range Interpretation Comme nts NA (test code = 0621707098) 138 mmol/L 135-145 K (test code = 4348302878) 4.5 mmol/L 3.5-5.0 Slight hemolysis CL (test code = 3762486746) 103 mmol/L 98-108 CO2 TOTAL (test code = 1067960627) 23 mmol/L 23-31 AGAP (test code = 2886638969) 12 2-16 BUN (test code = 9911628995) 16 mg/dL 7-23 Slight hemolysis GLUCOSE (test code = 4430367278) 142 mg/dL 70-110 H CREATININE (test code = 2032850031) 0.99 mg/dL 0.60-1.25 TOTAL BILI (test code = 4025242142) 1.2 mg/dL 0.1-1.1 H CALCIUM (test code = 4090407113) 9.6 mg/dL 8.6-10.6 T PROTEIN (test code = 4261071496) 8.1 g/dL 6.3-8.2 ALBUMIN (test code = 7226385482) 4.6 g/dL 3.5-5.0 ALK PHOS (test code = 5108038304) 51 U/L 34-122 Slight hemolysis ALTv (test code = 1742-6) 26 U/L 5-50 AST(SGOT) (test code = 7881093445) 32 U/L 13-40 Slight hemolysis eGFR (test code = 7083399830) 80.0 mL/min/1.73m2 KRYSTLE (test code = KRYSTLE) [...] imaging tests). Lab Interpretation (test code = 26953-6) [facility]normal [facility]LIPASE2023-10-20 10:47:01* Test Item Value Reference Range Interpretation Comme nts LIPASE (test code = 9499871220) 955 U/L 0-220 H Lab Interpretation (test cod e = 90006-0) [facility]normal [facility] ClubCBC WITH [id number] 10:27:34* Test Item Value Reference Range Interpretation Comme nts WBC (test code = 6690-2) 6.60 See_Comment [Automated [employer]] The system which generated this result transmitted reference range: 4.20 - 10.70 10*3/?L. The reference range was not used to interpret this result as normal/abnormal. RBC (test code = 789-8) 5.32 See_Comment [Automated [employer]] The system which generated this result transmitted [...] 34.5 g/dL 31.2-35.0 RDW-SD (test code = 29494-9) 39.4 fL 38.5-51.6 RDW-CV (test code = 788-0) 12.3 % 12.1-15.4 PLT (test code = 777-3) 226 See_Comment [Automated messa ge] The system which generated this result transmitted reference range: 150 - 328 10*3/?L. The reference range was not used to interpret this result as normal/abnormal. MPV (test code = 75830-0) 9.6 fL 9.8-13.0 L NRBC/100 WBC (test code = 5742656481) 0.0 See_Comment [Automated [employer]] The system which generated this result transmitted reference range: 0.0 - 10.0 /100 WBCs. The reference range was not used to interpret this result as normal/abnormal. NRBC x10^3 (test code = 8866379096) See_Comment [Automated messa ge] The system which generated this result transmitted reference range: 10*3/?L. The reference range was not used to interpret this result as normal/abnormal. GRAN MAT (NEUT) % (test code = 770-8) 54.9 % IMM GRAN % (test code = 8829751821) 0.20 % LYMPH % (test code = 736-9) 36.2 % MONO % (test code = 5905-5) 7.9 % EOS % (test code = 713-8) 0.5 % BASO % (test code = 706-2) 0.3 % GRAN MAT x10^3(ANC) (test code = 2282411491) 3.63 10*3/uL 1.99-6.95 IMM GRAN x10^3 (test code = 2495425686) 0.00-0.06 LYMPH x10^3 (test code = 731-0) 2.39 10*3/uL 1.09-3.23 MONO x10^3 (test code = 742-7) 0.52 10*3/uL 0.36-1.02 EOS x10^3 (test code = 711-2) 0.03 10*3/uL 0.06-0.53 L BASO x10^3 (test code = 704-7) 0.01-0.09 Lab Interpretation (test code = 22290-5) Abnormal [facility] PELVIS W/ISJX0442-96-63 00:06:00 [facility] 1970 Sex: M Patient Name: NOAH PUTNAM Unit No: [id number] EXAMS: CPT CODE: [id number] CT ABD PELVIS W/CONT 38855 Reason: diffuse abd pain CT Scan of [...] Jennifer Bass MD CC: Jessie Gleason DO; [facility] Technologist: Cory Romero CT Trscrpt Dt/ (000)t.SDR.MA50 Orig Print D/T: S: 07/02/2023 (0009) CTDI: DLP: [facility]NAM [address] [place] [address] PHYS: MANOLO.[address] - Jessie Gleason [address] : 1970 AGE: 52 SEX: M [place], [place] [address] LOC: D.PER PHONE #: [phone] EXAM DATE: 07/01/2023 STATUS: REG ER FAX #: RAD NO:DC Dt: PAGE 1 Signed ReportTROP-I HIGH [id number] 23:55:00* Test Item Value Reference Range Interpretation [...] troponin from other clinical conditions, the Fourth [place] Definition of Myocardial Infarction stresses clinical assessment and demonstration of a rise and/or fall in serial troponin results above the upper reference limit.Results of this assay method may be falsely depressed orelevated if patient is taking high doses of Biotin. BASIC METABOLIC [id number] 23:55:00* Test Item Value Reference Range Interpretation [...] CA) 9.3 MG/DL 8.7-10.5 N HEPATIC FUNCTION [id number] 23:55:00* Test Item Value Reference Range Interpretation [...] code = ALKP) 60 Units/L 50-136 N [id number] 23:55:00* Test Item Value Reference Range Interpretation Comme nts LIPASE (test code = LIP) 259 U/L 16-77 H New Reference Ranges of 16-77 U/L please reviewrevised from 73-393 U/L on 06/30/2023 CBC W/AUTO [id number] 23:24:00* Test Item Value Reference Range Interpretation [...] = BA#) 0.02 x10 3/uL 0.0-0.2 N [id number] 12:29:00* Test Item Value Reference Range Interpretation Comme nts LIPASE (test code = LIP) 73 Units/L 73-393 N [id number] 17:24:56* Test Item Value Reference Range Interpretation Comme nts LIPASE (test code = 0456060426) 283 U/L 0-220 H Lab Interpretation (test cod e = 33399-9) Abnormal [facility] METABOLIC PANEL (NA, K, CL, CO2, GLUCOSE, BUN, CREATININE, CA)2023-04-22 17:24:35* Test Item Value Reference Range Interpretation Comme [facility] NA (test code = 5030692205) 139 mmol/L 135-145 K (test code = 2687178692) 4.0 mmol/L 3.5-5.0 CL (test code = 3539248952) 106 mmol/L 98-108 CO2 TOTAL (test code = 6638095630) 25 mmol/L 23-31 AGAP (test code = 1236938022) 8 2-16 BUN (test code = 8524957589) 21 mg/dL 7-23 GLUCOSE (test code = 5725538826) 110 mg/dL 70-110 CREATININE (test code = 0251646938) 1.06 mg/dL 0.60-1.25 CALCIUM (test code = 2127353683) 8.1 mg/dL 8.6-10.6 L eGFR (test code = 7765836252) 74.0 mL/min/1.73m2 KRYSTLE (test code = KRYSTLE) [...] imaging tests). Lab Interpretation (test code = 01233-0) [facility]normal [facility]CREATINE [id number] 13:57:28* Test Item Value Reference Range Interpretation Comme nts CK (test code = 0602026581) 635 U/L 33-194 H Lab Interpretation (test cod e = 02870-4) [facility]normal [facility] ClubBASI METABOLIC PANEL (NA, K, CL, CO2, GLUCOSE, BUN, CREATININE, CA)2023-04-22 13:23:02* Test Item Value Reference Range Interpretation Comme nts NA (test code = 8141397144) 141 mmol/L 135-145 K (test code = 7458114700) 4.0 mmol/L 3.5-5.0 CL (test code = 2309283569) 107 mmol/L 98-108 CO2 TOTAL (test code = 7753824587) 27 mmol/L 23-31 AGAP (test code = 5666616013) 7 2-16 BUN (test code = 9696201206) 22 mg/dL 7-23 GLUCOSE (test code = 7874293641) 94 mg/dL 70-110 CREATININE (test code = 4190953157) 1.26 mg/dL 0.60-1.25 H CALCIUM (test code = 8607154205) 8.3 mg/dL 8.6-10.6 L eGFR (test code = 6301641640) 60.6 mL/min/1.73m2 KRYSTLE (test code = KRYSTLE) [...] imaging tests). Lab Interpretation (test code = 47199-7) [facility]22:41* Test Item Value Reference Range Interpretation Comme nts LIPASE (test code = 6605523447) 897 U/L 0-220 H Lab Interpretation (test cod e = 74318-5) [facility] (74702)2023-04-22 09:43:42* Test Item Value Reference Range Interpretation Comme nts NA (test code = 1999956271) 140 mmol/L 135-145 K (test code = 0872089251) 3.7 mmol/L 3.5-5.0 CL (test code = 3648905849) 103 mmol/L 98-108 CO2 TOTAL (test code = 4935741018) 24 mmol/L 23-31 AGAP (test code = 4402280603) 13 2-16 BUN (test code = 7259928336) 24 mg/dL 7-23 H GLUCOSE (test code = 2346242945) 114 mg/dL 70-110 H CREATININE (test code = 8881682794) 1.42 mg/dL 0.60-1.25 H TOTAL BILI (test code = 4062573903) 0.9 mg/dL 0.1-1.1 CALCIUM (test code = 0546003199) 9.5 mg/dL 8.6-10.6 T PROTEIN (test code = 3083292471) 9.2 g/dL 6.3-8.2 H ALBUMIN (test code = 7560934908) 4.9 g/dL 3.5-5.0 ALK PHOS (test code = 3014169811) 66 U/L 34-122 ALTv (test code = 1742-6) 25 U/L 5-50 AST(SGOT) (test code = 9335275474) 37 U/L 13-40 eGFR (test code = 0688067746) 52.8 mL/min/1.73m2 KRYSTLE (test code = KRYSTLE) [...] imaging tests). Lab Interpretation (test code = 04832-3) Abnormal [facility] WITH [id number] 09:33:37* Test Item Value Reference Range Interpretation Comme nts WBC (test code = 6690-2) 8.53 See_Comment [Automated [employer]] The system which generated this result transmitted reference range: 4.20 - 10.70 10*3/?L. The reference range was not used to interpret this result as normal/abnormal. RBC (test code = 789-8) 5.60 See_Comment H [Automated [employer]] The system which generated this result transmitted [...] g/dL 31.2-35.0 H RDW-SD (test code = 47127-9) 40.1 fL 38.5-51.6 RDW-CV (test code = 788-0) 13.0 % 12.1-15.4 PLT (test code = 777-3) 267 See_Comment [Automated [employer]] The system which generated this result transmitted reference range: 150 - 328 10*3/?L. The reference range was not used to interpret this result as normal/abnormal. MPV (test code = 37457-2) 9.6 fL 9.8-13.0 L NRBC/100 WBC (test code = 1832875661) 0.0 See_Comment [Automated me ssage] The system which generated this result transmitted reference range: 0.0 - 10.0 /100 WBCs. The reference range was not used to interpret this result as normal/abnormal. NRBC x10^3 (test code = 1537186264) See_Comment [Automated messa ge] The system which generated this result transmitted reference range: 10*3/?L. The reference range was not used to interpret this result as normal/abnormal. GRAN MAT (NEUT) % (test code = 770-8) 44.5 % IMM GRAN % (test code = 1869070623) 0.20 % LYMPH % (test code = 736-9) 43.4 % MONO % (test code = 5905-5) 10.7 % EOS % (test code = 713-8) 0.8 % BASO % (test code = 706-2) 0.4 % GRAN MAT x10^3(ANC) (test code = 7848618915) 3.80 10*3/uL 1.99-6.95 IMM GRAN x10^3 (test code = 1198234137) 0.00-0.06 LYMPH x10^3 (test code = 731-0) 3.70 10*3/uL 1.09-3.23 H MONO x10^3 (test code = 742-7) 0.91 10*3/uL 0.36-1.02 EOS x10^3 (test code = 711-2) 0.07 10*3/uL 0.06-0.53 BASO x10^3 (test code = 704-7) 0.03 10*3/uL 0.01-0.09 Lab Interpretation (test code = 29809-9) [id number] 13:23:31* Test Item Value Reference Range Interpretation Comme nts TROPONIN I (test code = 3038105916) 0.020 ng/mL <=0.034 KRYSTLE (test code = [...] of biotin. Lab Interpretation (test code = 12194-2) [facility] [id number] 13:23:31* Test Item Value Reference Range Interpretation Comme nts TROPONIN I (test code = 7003520067) 0.020 ng/mL <=0.034 KRYSTLE (test code = [...] of biotin. Lab Interpretation (test code = 07683-5) [facility] METABOLIC PANEL (23430)2023-04-16 12:58:04* Test Item Value Reference Range Interpretation Comme nts NA (test code = 9090856324) 142 mmol/L 135-145 K (test code = 6889050775) 4.0 mmol/L 3.5-5.0 CL (test code = 6020313205) 105 mmol/L 98-108 CO2 TOTAL (test code = 0892935572) 28 mmol/L 23-31 AGAP (test code = 2317657779) 9 2-16 BUN (test code = 9936821162) 11 mg/dL 7-23 GLUCOSE (test code = 1338010175) 115 mg/dL 70-110 H CREATININE (test code = 9574380102) 0.85 mg/dL 0.60-1.25 TOTAL BILI (test code = 0297810593) 0.4 mg/dL 0.1-1.1 CALCIUM (test code = 5809828986) 9.2 mg/dL 8.6-10.6 T PROTEIN (test code = 0087044283) 7.6 g/dL 6.3-8.2 ALBUMIN (test code = 3825185845) 4.4 g/dL 3.5-5.0 ALK PHOS (test code = 6176748475) 52 U/L 34-122 ALTv (test code = 1742-6) 23 U/L 5-50 AST(SGOT) (test code = 5883493503) 33 U/L 13-40 eGFR (test code = 8660913043) 95.4 mL/min/1.73m2 KRYSTLE (test code = KRYSTLE) [...] imaging tests). Lab Interpretation (test code = 59765-4) [facility] 12:58:04* Test Item Value Reference Range Interpretation Comme nts LIPASE (test code = 5420952111) 492 U/L 0-220 H Lab Interpretation (test cod e = 96730-6) Abnormal [facility]. METABOLIC PANEL (10782)2023-04-16 12:58:04* Test Item Value Reference Range Interpretation Comme nts NA (test code = 8073096084) 142 mmol/L 135-145 K (test code = 9141484390) 4.0 mmol/L 3.5-5.0 CL (test code = 5987578912) 105 mmol/L 98-108 CO2 TOTAL (test code = 2582933725) 28 mmol/L 23-31 AGAP (test code = 6933956960) 9 2-16 BUN (test code = 4669330198) 11 mg/dL 7-23 GLUCOSE (test code = 6064883073) 115 mg/dL 70-110 H CREATININE (test code = 8763461754) 0.85 mg/dL 0.60-1.25 TOTAL BILI (test code = 9917680951) 0.4 mg/dL 0.1-1.1 CALCIUM (test code = 2936718337) 9.2 mg/dL 8.6-10.6 T PROTEIN (test code = 6892728721) 7.6 g/dL 6.3-8.2 ALBUMIN (test code = 2908080848) 4.4 g/dL 3.5-5.0 ALK PHOS (test code = 5033956132) 52 U/L 34-122 ALTv (test code = 1742-6) 23 U/L 5-50 AST(SGOT) (test code = 7955898907) 33 U/L 13-40 eGFR (test code = 8878920702) 95.4 mL/min/1.73m2 KRYSTLE (test code = KRYSTLE) [...] imaging tests). Lab Interpretation (test code = 84551-8) [facility]normal [facility] 12:58:04* Test Item Value Reference Range Interpretation Comme nts LIPASE (test code = 3321913430) 492 U/L 0-220 H Lab Interpretation (test cod e = 10822-4) Abnormal [facility] WITH [id number] 12:50:01* Test Item Value Reference Range Interpretation Comme nts WBC (test code = 6690-2) 6.75 See_Comment [Automated [employer]] The system which generated this result transmitted reference range: 4.20 - 10.70 10*3/?L. The reference range was not used to interpret this result as normal/abnormal. RBC (test code = 789-8) 5.08 See_Comment [Automated [employer]] The system which generated this result transmitted [...] 34.9 g/dL 31.2-35.0 RDW-SD (test code = 11752-3) 41.4 fL 38.5-51.6 RDW-CV (test code = 788-0) 13.2 % 12.1-15.4 PLT (test code = 777-3) 219 See_Comment [Automated messa ge] The system which generated this result transmitted reference range: 150 - 328 10*3/?L. The reference range was not used to interpret this result as normal/abnormal. MPV (test code = 37974-5) 9.5 fL 9.8-13.0 L NRBC/100 WBC (test code = 0110610965) 0.0 See_Comment [Automated [employer].Ship ssage] The system which generated this result transmitted reference range: 0.0 - 10.0 /100 WBCs. The reference range was not used to interpret this result as normal/abnormal. NRBC x10^3 (test code = 4748106762) See_Comment [Automated wavecatcha ge] The system which generated this result transmitted reference range: 10*3/?L. The reference range was not used to interpret this result as normal/abnormal. GRAN MAT (NEUT) % (test code = 770-8) 46.9 % IMM GRAN % (test code = 7631058769) 0.10 % LYMPH % (test code = 736-9) 43.4 % MONO % (test code = 5905-5) 8.4 % EOS % (test code = 713-8) 0.9 % BASO % (test code = 706-2) 0.3 % GRAN MAT x10^3(ANC) (test code = 3618541916) 3.16 10*3/uL 1.99-6.95 IMM GRAN x10^3 (test code = 4490697491) 0.00-0.06 LYMPH x10^3 (test code = 731-0) 2.93 10*3/uL 1.09-3.23 MONO x10^3 (test code = 742-7) 0.57 10*3/uL 0.36-1.02 EOS x10^3 (test code = 711-2) 0.06 10*3/uL 0.06-0.53 BASO x10^3 (test code = 704-7) 0.01-0.09 Lab Interpretation (test code = 84431-5) Abnormal [facility] WITH [id number] 12:50:01* Test Item Value Reference Range Interpretation Comme nts WBC (test code = 6690-2) 6.75 See_Comment [Automated wavecatcha ge] The system which generated this result transmitted reference range: 4.20 - 10.70 10*3/?L. The reference range was not used to interpret this result as normal/abnormal. RBC (test code = 789-8) 5.08 See_Comment [Automated wavecatcha ge] The system which generated this result [...] 34.9 g/dL 31.2-35.0 RDW-SD (test code = 34147-7) 41.4 fL 38.5-51.6 RDW-CV (test code = 788-0) 13.2 % 12.1-15.4 PLT (test code = 777-3) 219 See_Comment [Automated wavecatcha ge] The system which generated this result transmitted reference range: 150 - 328 10*3/?L. The reference range was not used to interpret this result as normal/abnormal. MPV (test code = 24275-3) 9.5 fL 9.8-13.0 L NRBC/100 WBC (test code = 9620002095) 0.0 See_Comment [Automated [employer].S[employer] ssage] The system which generated this result transmitted reference range: 0.0 - 10.0 /100 WBCs. The reference range was not used to interpret this result as normal/abnormal. NRBC x10^3 (test code = 3855391121) See_Comment [Automated messa ge] The system which generated this result transmitted reference range: 10*3/?L. The reference range was not used to interpret this result as normal/abnormal. GRAN MAT (NEUT) % (test code = 770-8) 46.9 % IMM GRAN % (test code = 8735730516) 0.10 % LYMPH % (test code = 736-9) 43.4 % MONO % (test code = 5905-5) 8.4 % EOS % (test code = 713-8) 0.9 % BASO % (test code = 706-2) 0.3 % GRAN MAT x10^3(ANC) (test code = 0280783572) 3.16 10*3/uL 1.99-6.95 IMM GRAN x10^3 (test code = 0906210448) 0.00-0.06 LYMPH x10^3 (test code = 731-0) 2.93 10*3/uL 1.09-3.23 MONO x10^3 (test code = 742-7) 0.57 10*3/uL 0.36-1.02 EOS x10^3 (test code = 711-2) 0.06 10*3/uL 0.06-0.53 BASO x10^3 (test code = 704-7) 0.01-0.09 Lab Interpretation (test code = 67316-6) Abnormal [facility] (AUTOMATED)2023-02-13 21:02:35* Test Item Value Reference Range Interpretation Comme nts POCT GLU (test code = 5863840767) 118 mg/dL 70-110 H Lab Interpretation (test cod e = 23668-7) Abnormal [facility] WITH [id number] 05:51:48* Test Item Value Reference Range Interpretation [...] 34.4 g/dL 31.2-35.0 RDW-SD (test code = 71658-5) 38.5 fL 38.5-51.6 RDW-CV (test code = 788-0) 12.5 % 12.1-15.4 PLT (test code = 777-3) 216 See_Comment [Automated wavecatcha ge] The system which generated this result transmitted reference range: 150 - 328 10*3/?L. The reference range was not used to interpret this result as normal/abnormal. MPV (test code = 89595-6) 10.0 fL 9.8-13.0 NRBC/100 WBC (test code = 4566119826) 0.0 See_Comment [Automated Post.[employer].Ship ssage] The system which generated this result transmitted reference range: 0.0 - 10.0 /100 WBCs. The reference range was not used to interpret this result as normal/abnormal. NRBC x10^3 (test code = 0399950087) See_Comment [Automated wavecatcha ge] The system which generated this result transmitted reference range: 10*3/?L. The reference range was not used to interpret this result as normal/abnormal. SEG % (test code = 17625-8) 36 % 33-76 LYMPH % (test code = 95245-5) 48 % 14-54 MONO % (test code = 94173-3) 13 % 0-4 H EOS % (test code = 81367-7) 3 % 0-3 ANC (test code = 753-4) 2.75 10*3/uL 1.99-6.95 Lab Interpretation (test code = 39184-4) [facility]12606[facility] 05:24:19* Test Item Value Reference Range Interpretation Comme nts NA (test code = 8533070310) 139 mmol/L 135-145 K (test code = 6770940341) 3.8 mmol/L 3.5-5.0 CL (test code = 8703533730) 105 mmol/L 98-108 CO2 TOTAL (test code = 9396960782) 24 mmol/L 23-31 AGAP (test code = 5580176404) 10 2-16 BUN (test code = 8870436443) 11 mg/dL 7-23 GLUCOSE (test code = 0599248316) 115 mg/dL 70-110 H CREATININE (test code = 8737659952) 0.93 mg/dL 0.60-1.25 TOTAL BILI (test code = 2951382256) 0.8 mg/dL 0.1-1.1 CALCIUM (test code = 9818890315) 9.3 mg/dL 8.6-10.6 T PROTEIN (test code = 2998215568) 8.0 g/dL 6.3-8.2 ALBUMIN (test code = 6134266258) 4.5 g/dL 3.5-5.0 ALK PHOS (test code = 4780782382) 50 U/L 34-122 ALTv (test code = 1742-6) 22 U/L 5-50 AST(SGOT) (test code = 0847347182) 36 U/L 13-40 eGFR (test code = 0381833575) 86.0 mL/min/1.73m2 KRYSTLE (test code = KRYSTLE) [...] imaging tests). Lab Interpretation (test code = 13319-7) [facility] 05:24:18* Test Item Value Reference Range Interpretation Comme nts LIPASE (test code = 4940904259) 271 U/L 0-220 H Lab Interpretation (test cod e = 41416-8) Abnormal [facility] ClubCB with [id number] 22:09:52* Test Item Value Reference Range Interpretation Comme nts WBC (test code = 6690-2) See_Comment [[employer]] The system which generated this result transmitted reference range: 4.20 - 10.70 10*3/?L. The reference range was not used to interpret this result as normal/abnormal. RBC (test code = 789-8) See_Comment [[employer]] The system which generated this result transmitted [...] g/dL 31.2-35.0 H RDW-SD (test code = 82155-2) 39.2 fL 38.5-51.6 RDW-CV (test code = 788-0) 12.9 % 12.1-15.4 PLT (test code = 777-3) See_Comment [Automated messa ge] The system which generated this result transmitted reference range: 150 - 328 10*3/?L. The reference range was not used to interpret this result as normal/abnormal. MPV (test code = 13534-8) 9.0 fL 9.8-13.0 L NRBC/100 WBC (test code = 0204994905) See_Comment [Automated Post.B[employer].Ship ssage] The system which generated this result transmitted reference range: 0.0 - 10.0 /100 WBCs. The reference range was not used to interpret this result as normal/abnormal. NRBC x10^3 (test code = 2730406550) See_Comment [Automated wavecatcha ge] The system which generated this result transmitted reference range: 10*3/?L. The reference range was not used to interpret this result as normal/abnormal. GRAN MAT (NEUT) % (test code = 770-8) 35.3 % IMM GRAN % (test code = 6724822039) 0.00 % LYMPH % (test code = 736-9) 56.0 % MONO % (test code = 5905-5) 7.9 % EOS % (test code = 713-8) 0.4 % BASO % (test code = 706-2) 0.4 % GRAN MAT x10^3(ANC) (test code = 3537086234) 1.87 10*3/uL 1.99-6.95 L IMM GRAN x10^3 (test code = 2045412388) 0.00-0.06 LYMPH x10^3 (test code = 731-0) 2.97 10*3/uL 1.09-3.23 MONO x10^3 (test code = 742-7) 0.42 10*3/uL 0.36-1.02 EOS x10^3 (test code = 711-2) 0.06-0.53 L BASO x10^3 (test code = 704-7) 0.01-0.09 Lab Interpretation (test code = 87754-9) Abnormal [facility] METABOLIC PANEL (NA, K, CL, CO2, GLUCOSE, BUN, CREATININE, CA)2022-10-12 00:25:13* Test Item Value Reference Range Interpretation Comme nts NA (test code = 7010885438) 136 mmol/L 135-145 K (test code = 5991570046) 3.5 mmol/L 3.5-5.0 CL (test code = 8549001510) 103 mmol/L 98-108 CO2 TOTAL (test code = 7292657848) 26 mmol/L 23-31 AGAP (test code = 1231728169) 2-16 BUN (test code = 6830373602) 14 mg/dL 7-23 GLUCOSE (test code = 6159006477) 157 mg/dL 70-110 H CREATININE (test code = 8047029072) 0.80 mg/dL 0.60-1.25 CALCIUM (test code = 6903138293) 8.4 mg/dL 8.6-10.6 L eGFR (test code = 3310103635) mL/min/1.73m2 KRYSTLE (test code = KRYSTLE) Association [...] imaging tests). Lab Interpretation (test code = 95536-4) [facility]normal [facility] ClubHEPAT[facility] FUNCTION PAN[facility] (46061) (ALB,T.PRO,BILI T,BU/BC,ALT,AST,ALK PHOS)2022-10-12 00:25:13* Test Item Value Reference Range Interpretation Comme nts TOTAL BILI (test code = 6932733129) 1.2 mg/dL 0.1-1.1 H BILI UNCON (test code = 3022181336) 1.0 mg/dL 0.1-1.1 BILI CONJ (test code = 6017171223) 0.0 mg/dL 0.0-0.3 T PROTEIN (test code = 4694765421) 7.1 g/dL 6.3-8.2 ALBUMIN (test code = 4086448314) 4.0 g/dL 3.5-5.0 ALK PHOS (test code = 3484417826) 59 U/L 34-122 ALTv (test code = 1742-6) 38 U/L 5-50 AST(SGOT) (test code = 3372803474) 61 U/L 13-40 H Lab Interpretation (test cod e = 19948-9) [facility]normal [facility] ClubAB[facility] Confirmation (Lab Only)2022-10-11 21:35:47* Test Item Value Reference Range Interpretation Comme nts ABO & RH (test code = 20) O Positive Performed at [facility] Laboratory Services [facility] Blood [address] Free: [phone] No. [id number] [facility] ClubType and Screen - ONCE [id number] 21:25:51* Test Item Value Reference Range Interpretation Comme nts ABO & RH (test code = 20) O POSITIVE Performed at [facility] Laboratory [place] [address]Toll Free: [phone] No. [id number] IAT (test code = 1185) Negative Performed at [facility] Laboratory Services [facility] Blood [address] [place] [address]Kcin Free: [phone] No. [id number] [facility] WITH [id number] 20:47:43* Test Item Value Reference Range Interpretation [...] g/dL 31.2-35.0 H RDW-SD (test code = 35911-5) 41.1 fL 38.5-51.6 RDW-CV (test code = 788-0) 13.2 % 12.1-15.4 PLT (test code = 777-3) See_Comment [Automated messa ge] The system which generated this result transmitted reference range: 150 - 328 10*3/?L. The reference range was not used to interpret this result as normal/abnormal. MPV (test code = 57675-8) 9.5 fL 9.8-13.0 L NRBC/100 WBC (test code = 2585844635) See_Comment [Automated me ssage] The system which generated this result transmitted reference range: 0.0 - 10.0 /100 WBCs. The reference range was not used to interpret this result as normal/abnormal. NRBC x10^3 (test code = 3819296071) See_Comment [Automated messa ge] The system which generated this result transmitted reference range: 10*3/?L. The reference range was not used to interpret this result as normal/abnormal. GRAN MAT (NEUT) % (test code = 770-8) 38.2 % IMM GRAN % (test code = 1182438136) 0.00 % LYMPH % (test code = 736-9) 53.7 % MONO % (test code = 5905-5) 7.5 % EOS % (test code = 713-8) 0.3 % BASO % (test code = 706-2) 0.3 % GRAN MAT x10^3(ANC) (test code = 3661082430) 2.46 10*3/uL 1.99-6.95 IMM GRAN x10^3 (test code = 0075093766) 0.00-0.06 LYMPH x10^3 (test code = 731-0) 3.46 10*3/uL 1.09-3.23 H MONO x10^3 (test code = 742-7) 0.48 10*3/uL 0.36-1.02 EOS x10^3 (test code = 711-2) 0.06-0.53 L BASO x10^3 (test code = 704-7) 0.01-0.09 Lab Interpretation (test code = 74998-0) [facility]normal [facility] ClubLIPID PANEL (70917)(TOTAL CHOLESTEROL, TRIGLYCERIDES, HDL)2022-10-11 20:32:44* Test Item Value Reference Range Interpretation Comme nts CHOL (test code = 6401728742) 195 mg/dL 120-200 HDL (test code = 9860388523) 36 mg/dL See_Comment L [Automated messa ge] The system which generated this result transmitted reference range: >=40. The reference range was not used to interpret this result as normal/abnormal. HDLC RATIO (test code = 9420257200) See_Comment H [Automated messa ge] The system which generated this result transmitted reference range: <=5.0. The reference range was not used to interpret this result as normal/abnormal. TRIG (test code = 1256626247) 84 mg/dL 30-170 LDL CHOL (test code = 81790-3) 142 mg/dL See_Comment [Automated messa ge] The system which generated this result transmitted reference range: <=160. The reference range was not used to interpret this result as normal/abnormal. VLDL (test code = 1618185338) 17 mg/dL 5-60 Lab Interpretation (test code = 77405-2) Abnormal [facility] ClubN-TERMINAL [id number] 14:23:55* Test Item Value Reference Range Interpretation Comme nts NT-proBNP (test code = 6030959119) See_Comment [Automated message] The system which generated this result transmitted reference range: <=125. The reference range was not used to interpret this result as normal/abnormal. KRYSTLE (test code = KRYSTLE) Biotin has been reported to cause a negative bias, interpret results relative to patient's use of biotin. Lab Interpretation (test code = 27535-8) Normal [facility] ClubACTIVATED PARTIAL THRMPLAS [id number] 14:23:25* Test Item Value Reference Range Interpretation [...] 30 seconds. Lab Interpretation (test code = 95833-6) Normal [facility] ClubLIPASE2023-01-28 14:23:05* Test Item Value Reference Range Interpretation Comme nts LIPASE (test code = 5575953802) 502 U/L 0-220 H Lab Interpretation (test cod e = 98419-9) [facility]normal [facility] ClubCOMP. METABOLIC PANEL (98748)2022-10-11 14:23:05* Test Item Value Reference Range Interpretation Comme nts NA (test code = 4149026296) 139 mmol/L 135-145 K (test code = 1949686360) 5.0 mmol/L 3.5-5.0 Slight hemolysis CL (test code = 5889344871) 103 mmol/L 98-108 CO2 TOTAL (test code = 2321488449) 28 mmol/L 23-31 AGAP (test code = 0889382574) 2-16 BUN (test code = 8941321479) 17 mg/dL 7-23 Slight hemolysis GLUCOSE (test code = 2932555602) 103 mg/dL 70-110 CREATININE (test code = 1308591840) 0.80 mg/dL 0.60-1.25 TOTAL BILI (test code = 6692579071) 1.6 mg/dL 0.1-1.1 H CALCIUM (test code = 0940052891) 9.0 mg/dL 8.6-10.6 T PROTEIN (test code = 6236551829) 8.4 g/dL 6.3-8.2 H ALBUMIN (test code = 0321753018) 4.8 g/dL 3.5-5.0 ALK PHOS (test code = 4529635019) 57 U/L 34-122 Slight hemolysis ALTv (test code = 1742-6) 49 U/L 5-50 AST(SGOT) (test code = 5305794351) 77 U/L 13-40 H Slight hemolysis eGFR (test code = 6814353274) mL/min/1.73m2 KRYSTLE (test code = KRYSTLE) Association [...] imaging tests). Lab Interpretation (test code = 70725-7) [facility]normal [facility] ClubTROP[facility]IN [id number] 14:23:05* Test Item Value Reference Range Interpretation Comments TROPONIN I (test code = 6751470981) 0.018 ng/mL See_Comment [Automated message] The system [...] of biotin. Lab Interpretation (test code = 76979-8) Normal [facility] ClubPROTHROMBIN TIME / [id number] 14:20:24* Test Item Value Reference Range Interpretation Comme nts PROTIME PATIENT (test code = 5964-2) See_Comment [Automated [employer]] The system which generated this result transmitted reference range: 12.0 - 14.7 Seconds. The reference range was not used to interpret this result as normal/abnormal. INR (test code = 6301-6) Normal INR <1.1; Warfarin Therapeutic range 2.0 to 3.0 or 2.5 to 3.5, depending upon the indications. Lab Interpretation (test code = 08231-3) Normal [facility] ClubCBC WITH [id number] 13:55:05* Test Item Value Reference Range Interpretation Comme nts WBC (test code = 6690-2) See_Comment [Automated [employer]] The system which generated this result transmitted [...] 34.9 g/dL 31.2-35.0 RDW-SD (test code = 03407-7) 40.4 fL 38.5-51.6 RDW-CV (test code = 788-0) 13.0 % 12.1-15.4 PLT (test code = 777-3) See_Comment [Automated messa ge] The system which generated this result transmitted reference range: 150 - 328 10*3/?L. The reference range was not used to interpret this result as normal/abnormal. MPV (test code = 59845-1) 9.1 fL 9.8-13.0 L NRBC/100 WBC (test code = 2645105129) See_Comment [Automated [employer] ssage] The system which generated this result transmitted reference range: 0.0 - 10.0 /100 WBCs. The reference range was not used to interpret this result as normal/abnormal. NRBC x10^3 (test code = 9122775794) See_Comment [Automated messa ge] The system which generated this result transmitted reference range: 10*3/?L. The reference range was not used to interpret this result as normal/abnormal. GRAN MAT (NEUT) % (test code = 770-8) 53.2 % IMM GRAN % (test code = 9012865152) 0.10 % LYMPH % (test code = 736-9) 36.6 % MONO % (test code = 5905-5) 9.3 % EOS % (test code = 713-8) 0.5 % BASO % (test code = 706-2) 0.3 % GRAN MAT x10^3(ANC) (test code = 7001016387) 4.25 10*3/uL 1.99-6.95 IMM GRAN x10^3 (test code = 1717987867) 0.00-0.06 LYMPH x10^3 (test code = 731-0) 2.92 10*3/uL 1.09-3.23 MONO x10^3 (test code = 742-7) 0.74 10*3/uL 0.36-1.02 EOS x10^3 (test code = 711-2) 0.04 10*3/uL 0.06-0.53 L BASO x10^3 (test code = 704-7) 0.01-0.09 Lab Interpretation (test code = 47536-3) [facility] METABOLIC PANEL (13053)2022-06-09 13:23:22* Test Item Value Reference Range Interpretation Comme nts NA (test code = 7552605264) 138 mmol/L 135-145 K (test code = 2222593013) 4.5 mmol/L 3.5-5 CL (test code = 6012117467) 106 mmol/L 98-108 CO2 TOTAL (test code = 2570471844) 24 mmol/L 23-31 AGAP (test code = 2775778179) 2-16 BUN (test code = 0020968789) 18 mg/dL 7-23 GLUCOSE (test code = 4713663357) 97 mg/dL 70-110 CREATININE (test code = 2755548521) 0.98 mg/dL 0.6-1.25 TOTAL BILI (test code = 4259075594) 0.5 mg/dL 0.1-1.1 CALCIUM (test code = 8552348629) 9.3 mg/dL 8.6-10.6 T PROTEIN (test code = 4800448771) 7.3 g/dL 6.3-8.2 ALBUMIN (test code = 9484730819) 4.5 g/dL 3.5-5 ALK PHOS (test code = 4019477465) 65 U/L 34-122 ALTv (test code = 1742-6) 27 U/L 5-50 AST(SGOT) (test code = 5337823314) 33 U/L 13-40 eGFR (test code = 6584090632) mL/min/1.73m2 KRYSTLE (test code = KRYSTLE) Association [...] [facility] 13:23:01* Test Item Value Reference Range Interpretation Comme nts LIPASE (test code = 0775251569) 596 U/L 0-220 H Lab Interpretation (test cod e = 67845-3) [facility]normal [facility] WITH [id number] 13:09:00* Test Item Value Reference Range Interpretation Comme nts WBC (test code = 6690-2) See_Comment [Automated [employer]] The system which generated this result transmitted reference range: 4.20 - 10.70 10*3/?L. The reference range was not used to interpret this result as normal/abnormal. RBC (test code = 789-8) See_Comment [Automated [employer]] The system which generated this result [...] g/dL 31.2-35 H RDW-SD (test code = 74889-7) 38.3 fL 38.5-51.6 L RDW-CV (test code = 788-0) 12.3 % 12.1-15.4 PLT (test code = 777-3) See_Comment [Automated wavecatcha ge] The system which generated this result transmitted reference range: 150 - 328 10*3/?L. The reference range was not used to interpret this result as normal/abnormal. MPV (test code = 11200-4) 9.2 fL 9.8-13 L NRBC/100 WBC (test code = 7638765019) See_Comment [Automated Post.Bid.Ship ssage] The system which generated this result transmitted reference range: 0.0 - 10.0 /100 WBCs. The reference range was not used to interpret this result as normal/abnormal. NRBC x10^3 (test code = 1209955905) See_Comment [Automated wavecatcha ge] The system which generated this result transmitted reference range: 10*3/?L. The reference range was not used to interpret this result as normal/abnormal. GRAN MAT (NEUT) % (test code = 770-8) 47.3 % IMM GRAN % (test code = 3955184677) 0.30 % LYMPH % (test code = 736-9) 43.8 % MONO % (test code = 5905-5) 7.8 % EOS % (test code = 713-8) 0.5 % BASO % (test code = 706-2) 0.3 % GRAN MAT x10^3(ANC) (test code = 0788207360) 3.04 10*3/uL 1.99-6.95 IMM GRAN x10^3 (test code = 9472504483) 0-0.06 LYMPH x10^3 (test code = 731-0) 2.81 10*3/uL 1.09-3.23 MONO x10^3 (test code = 742-7) 0.50 10*3/uL 0.36-1.02 EOS x10^3 (test code = 711-2) 0.03 10*3/uL 0.06-0.53 L BASO x10^3 (test code = 704-7) 0.01-0.09 Lab Interpretation (test code = 69410-0) Abnormal [facility] METABOLIC PANEL (NA, K, CL, CO2, GLUCOSE, BUN, CREATININE, CA)2021-11-01 10:40:12* Test Item Value Reference Range Interpretation Comme nts NA (test code = 5684732507) 136 mmol/L 135-145 K (test code = 0377946858) 4.2 mmol/L 3.5-5.0 CL (test code = 2610408356) 104 mmol/L 98-108 CO2 TOTAL (test code = 8907663540) 31 mmol/L 23-31 AGAP (test code = 6695426119) 2-16 L BUN (test code = 1153920930) 15 mg/dL 7-23 GLUCOSE (test code = 5319363760) 91 mg/dL 70-110 CREATININE (test code = 5143358550) 0.96 mg/dL 0.60-1.25 CALCIUM (test code = 5844428816) 8.5 mg/dL 8.6-10.6 L eGFR (test code = 0949415411) mL/min/1.73m2 KRYSTLE (test code = KRYSTLE) Association [...] imaging tests). Lab Interpretation (test code = 76638-2) [facility] 10:40:12* Test Item Value Reference Range Interpretation Comme nts MAGNESIUM (test code = 4313344305) 1.7 mg/dL 1.7-2.4 Lab Interpretation (test cod e = 44817-9) [facility]2022-02-18 10:39:52* Test Item Value Reference Range Interpretation Comme nts PHOSPHORUS (test code = 5025592255) 4.4 mg/dL 2.5-5.0 Lab Interpretation (test cod e = 45341-7) [facility] WITH [id number] 10:25:11* Test Item Value Reference Range Interpretation Comme nts WBC (test code = 6690-2) See_Comment [Automated wavecatcha [employer]] The system which generated this result transmitted reference range: 4.20 - 10.70 10*3/?L. The reference range was not used to interpret this result as normal/abnormal. RBC (test code = 789-8) See_Comment [Automated wavecatcha ge] The system which generated this result [...] 34.3 g/dL 31.2-35.0 RDW-SD (test code = 70884-2) 38.5 fL 38.5-51.6 RDW-CV (test code = 788-0) 12.3 % 12.1-15.4 PLT (test code = 777-3) See_Comment [Automated messa ge] The system which generated this result transmitted reference range: 150 - 328 10*3/?L. The reference range was not used to interpret this result as normal/abnormal. MPV (test code = 82817-4) 9.6 fL 9.8-13.0 L NRBC/100 WBC (test code = 1862555788) See_Comment [Automated Post.Bid.Ship ssage] The system which generated this result transmitted reference range: 0.0 - 10.0 /100 WBCs. The reference range was not used to interpret this result as normal/abnormal. NRBC x10^3 (test code = 3474020568) <0.01 See_Comment [Automated messa ge] The system which generated this result transmitted reference range: 10*3/?L. The reference range was not used to interpret this result as normal/abnormal. GRAN MAT (NEUT) % (test code = 770-8) 49.5 % IMM GRAN % (test code = 4606265182) 0.30 % LYMPH % (test code = 736-9) 39.4 % MONO % (test code = 5905-5) 9.7 % EOS % (test code = 713-8) 0.8 % BASO % (test code = 706-2) 0.3 % GRAN MAT x10^3(ANC) (test code = 5264118637) 3.13 10*3/uL 1.99-6.95 IMM GRAN x10^3 (test code = 2162032832) <0.03 0.00-0.06 LYMPH x10^3 (test code = 731-0) 2.49 10*3/uL 1.09-3.23 MONO x10^3 (test code = 742-7) 0.61 10*3/uL 0.36-1.02 EOS x10^3 (test code = 711-2) 0.05 10*3/uL 0.06-0.53 L BASO x10^3 (test code = 704-7) <0.03 0.01-0.09 Lab Interpretation (test code = 12794-8) [facility] [id number] 17:32:56* Test Item Value Reference Range Interpretation Comme nts NT-proBNP (test code = 6706871541) 13 pg/mL See_Comment [Automated message] The system which generated this result transmitted reference range: <=125. The reference range was not used to interpret this result as normal/abnormal. KRYSTLE (test code = KRYSTLE) Biotin has been reported to cause a negative bias, interpret results relative to patient's use of biotin. Lab Interpretation (test code = 81539-3) [facility] Club[facility]MIN[facility] [id number] 10:50:49* Test Item Value Reference Range Interpretation Comme nts NT-proBNP (test code = 2026795227) <11 See_Comment [Automated message] The system which generated this result transmitted reference range: <=125 pg/mL. The reference range was not used to interpret this result as normal/abnormal. KRYSTLE (test code = KRYSTLE) Biotin has been reported to cause a negative bias, interpret results relative to patient's use of biotin. Lab Interpretation (test code = 36524-2) [facility] ClubTROPONIN [id number] 10:36:56* Test Item Value Reference Range Interpretation Comments TROPONIN I (test code = 4034922772) 0.004 ng/mL See_Comment [Automated message] The system [...] of biotin. Lab Interpretation (test code = 79971-6) Normal [facility]. METABOLIC PANEL (96244)2021-10-31 10:33:50* Test Item Value Reference Range Interpretation Comme nts NA (test code = 1907621520) 139 mmol/L 135-145 K (test code = 5774290561) 4.0 mmol/L 3.5-5.0 CL (test code = 0982130226) 109 mmol/L 98-108 H CO2 TOTAL (test code = 5999900186) 27 mmol/L 23-31 AGAP (test code = 8845709370) 2-16 BUN (test code = 8798311332) 16 mg/dL 7-23 GLUCOSE (test code = 5099248573) 97 mg/dL 70-110 CREATININE (test code = 7133002148) 1.00 mg/dL 0.60-1.25 TOTAL BILI (test code = 7372674980) 1.0 mg/dL 0.1-1.1 CALCIUM (test code = 9874600550) 8.7 mg/dL 8.6-10.6 T PROTEIN (test code = 4740841819) 7.9 g/dL 6.3-8.2 ALBUMIN (test code = 8520712679) 4.4 g/dL 3.5-5.0 ALK PHOS (test code = 9533621415) 60 U/L 34-122 ALTv (test code = 1742-6) 56 U/L 5-50 H AST(SGOT) (test code = 9546540382) 49 U/L 13-40 H eGFR (test code = 6592516579) mL/min/1.73m2 KRYSTLE (test code = KRYSTLE) Association [...] imaging tests). Lab Interpretation (test code = 51891-1) [facility]normal [facility] ClubMagnesium [id number] 10:25:32* Test Item Value Reference Range Interpretation Comme nts MAGNESIUM (test code = 0296082435) 1.8 mg/dL 1.7-2.4 Lab Interpretation (test cod e = 90658-6) Normal [facility]PH[facility]2022-02-17 10:25:12* Test Item Value Reference Range Interpretation Comme nts PHOSPHORUS (test code = 3492549961) 3.9 mg/dL 2.5-5.0 Lab Interpretation (test cod e = 68640-7) Normal [facility] ClubCREATINE [id number] 10:24:52* Test Item Value Reference Range Interpretation Comme nts CK (test code = 3250265867) 215 U/L 33-194 H Lab Interpretation (test cod e = 36608-9) Abnormal [facility] with Albzfysolpje7657-51-49 10:18:09* Test Item Value Reference Range Interpretation [...] 33.9 g/dL 31.2-35.0 RDW-SD (test code = 33642-5) 41.3 fL 38.5-51.6 RDW-CV (test code = 788-0) 13.0 % 12.1-15.4 PLT (test code = 777-3) See_Comment [Automated messa ge] The system which generated this result transmitted reference range: 150 - 328 10*3/?L. The reference range was not used to interpret this result as normal/abnormal. MPV (test code = 69818-6) 10.0 fL 9.8-13.0 NRBC/100 WBC (test code = 8618069364) See_Comment [Automated Post.Bid.Ship ssage] The system which generated this result transmitted reference range: 0.0 - 10.0 /100 WBCs. The reference range was not used to interpret this result as normal/abnormal. NRBC x10^3 (test code = 8644018240) <0.01 See_Comment [Automated messa ge] The system which generated this result transmitted reference range: 10*3/?L. The reference range was not used to interpret this result as normal/abnormal. GRAN MAT (NEUT) % (test code = 770-8) 46.4 % IMM GRAN % (test code = 3674399094) 0.20 % LYMPH % (test code = 736-9) 44.0 % MONO % (test code = 5905-5) 8.3 % EOS % (test code = 713-8) 0.7 % BASO % (test code = 706-2) 0.4 % GRAN MAT x10^3(ANC) (test code = 3250541604) 3.73 10*3/uL 1.99-6.95 IMM GRAN x10^3 (test code = 0719965503) <0.03 0.00-0.06 LYMPH x10^3 (test code = 731-0) 3.55 10*3/uL 1.09-3.23 H MONO x10^3 (test code = 742-7) 0.67 10*3/uL 0.36-1.02 EOS x10^3 (test code = 711-2) 0.06 10*3/uL 0.06-0.53 BASO x10^3 (test code = 704-7) 0.03 10*3/uL 0.01-0.09 Lab Interpretation (test code = 99842-2) Abnormal [facility] ClubPROTHROMBIN TIME / [id number] 10:18:09* Test Item Value Reference Range Interpretation [...] the indications. Lab Interpretation (test code = 88722-8) Normal [facility] ClubTROPONIN [id number] 07:43:50* Test Item Value Reference Range Interpretation Comments TROPONIN I (test code = 9585213162) 0.005 ng/mL See_Comment [Automated message] The system [...] of biotin. Lab Interpretation (test code = 77282-2) [facility] METABOLIC PANEL (19030)2021-10-30 20:56:25* Test Item Value Reference Range Interpretation Comme nts NA (test code = 6844330717) 139 mmol/L 135-145 K (test code = 3919124234) 4.8 mmol/L 3.5-5.0 CL (test code = 2161705696) 105 mmol/L 98-108 CO2 TOTAL (test code = 0418491892) 26 mmol/L 23-31 AGAP (test code = 6443565724) 2-16 BUN (test code = 9234551661) 18 mg/dL 7-23 GLUCOSE (test code = 2440871558) 135 mg/dL 70-110 H CREATININE (test code = 7847824445) 0.98 mg/dL 0.60-1.25 TOTAL BILI (test code = 1591398537) 0.8 mg/dL 0.1-1.1 CALCIUM (test code = 7938515874) 10.0 mg/dL 8.6-10.6 T PROTEIN (test code = 4062519458) 10.3 g/dL 6.3-8.2 H ALBUMIN (test code = 6570439376) 5.5 g/dL 3.5-5.0 H ALK PHOS (test code = 7264453800) 74 U/L 34-122 ALTv (test code = 1742-6) 69 U/L 5-50 H AST(SGOT) (test code = 8178359602) 59 U/L 13-40 H eGFR (test code = 9794052542) mL/min/1.73m2 KRYSTLE (test code = KRYSTLE) Association [...] imaging tests). Lab Interpretation (test code = 76302-4) [facility]normal [facility] ClubLIPASE2022-02-16 20:56:05* Test Item Value Reference Range Interpretation Comme nts LIPASE (test code = 0201545201) 70 U/L 0-220 Lab Interpretation (test cod e = 56097-5) [facility] ClubCBC WITH [id number] 20:34:20* Test Item Value Reference Range Interpretation Comme nts WBC (test code = 6690-2) See_Comment H [Automated [employer]] The system which generated this result transmitted reference range: 4.20 - 10.70 10*3/?L. The reference range was not used to interpret this result as normal/abnormal. RBC (test code = 789-8) See_Comment H [Automated wavecatcha [employer]] The system which generated this result transmitted [...] 34.3 g/dL 31.2-35.0 RDW-SD (test code = 45967-4) 40.6 fL 38.5-51.6 RDW-CV (test code = 788-0) 12.8 % 12.1-15.4 PLT (test code = 777-3) See_Comment [Automated messa ge] The system which generated this result transmitted reference range: 150 - 328 10*3/?L. The reference range was not used to interpret this result as normal/abnormal. MPV (test code = 23555-7) 9.2 fL 9.8-13.0 L NRBC/100 WBC (test code = 3232124217) See_Comment [Automated Post.Bid.Ship ssage] The system which generated this result transmitted reference range: 0.0 - 10.0 /100 WBCs. The reference range was not used to interpret this result as normal/abnormal. NRBC x10^3 (test code = 0273985599) <0.01 See_Comment [Automated wavecatcha ge] The system which generated this result transmitted reference range: 10*3/?L. The reference range was not used to interpret this result as normal/abnormal. GRAN MAT (NEUT) % (test code = 770-8) 67.1 % IMM GRAN % (test code = 1407544275) 0.40 % LYMPH % (test code = 736-9) 24.5 % MONO % (test code = 5905-5) 7.6 % EOS % (test code = 713-8) 0.1 % BASO % (test code = 706-2) 0.3 % GRAN MAT x10^3(ANC) (test code = 0030570963) 7.34 10*3/uL 1.99-6.95 H IMM GRAN x10^3 (test code = 2487095391) 0.04 10*3/uL 0.00-0.06 LYMPH x10^3 (test code = 731-0) 2.67 10*3/uL 1.09-3.23 MONO x10^3 (test code = 742-7) 0.83 10*3/uL 0.36-1.02 EOS x10^3 (test code = 711-2) <0.03 0.06-0.53 L BASO x10^3 (test code = 704-7) 0.03 10*3/uL 0.01-0.09 Lab Interpretation (test code = 91435-1) [facility]normal [facility] ClubCREATINE [id number] 05:55:54* Test Item Value Reference Range Interpretation Comme nts CK (test code = 5490394741) 3682 U/L 33-194 H Lab Interpretation (test cod e = 92694-4) Abnormal [facility] ClubCREATINE [id number] 05:55:54* Test Item Value Reference Range Interpretation Comme nts CK (test code = 8374921397) 3682 U/L 33-194 H Lab Interpretation (test cod e = 15834-1) [facility] (NA, K, CL, CO2, GLUCOSE, BUN, CREATININE, CA)2021-05-24 05:02:27* Test Item Value Reference Range Interpretation Comme nts NA (test code = 1911691044) 137 mmol/L 135-145 K (test code = 5702658433) 3.6 mmol/L 3.5-5.0 CL (test code = 7581492933) 105 mmol/L 98-108 CO2 TOTAL (test code = 1961457977) 23 mmol/L 23-31 AGAP (test code = 3448950129) 2-16 BUN (test code = 2498252391) 26 mg/dL 7-23 H GLUCOSE (test code = 9433045230) 95 mg/dL 70-110 CREATININE (test code = 6404790101) 1.31 mg/dL 0.60-1.25 H CALCIUM (test code = 5727939940) 8.6 mg/dL 8.6-10.6 eGFR (test code = 7615739585) mL/min/1.73m2 KRYSTLE (test code = KRYSTLE) Association [...] imaging tests). Lab Interpretation (test code = 12509-2) [facility] (NA, K, CL, CO2, GLUCOSE, BUN, CREATININE, CA)2021-05-24 05:02:27* Test Item Value Reference Range Interpretation Comme nts NA (test code = 3901285432) 137 mmol/L 135-145 K (test code = 1916211119) 3.6 mmol/L 3.5-5.0 CL (test code = 4618020758) 105 mmol/L 98-108 CO2 TOTAL (test code = 6752556069) 23 mmol/L 23-31 AGAP (test code = 9230389590) 2-16 BUN (test code = 0622448914) 26 mg/dL 7-23 H GLUCOSE (test code = 8202333144) 95 mg/dL 70-110 CREATININE (test code = 1374445834) 1.31 mg/dL 0.60-1.25 H CALCIUM (test code = 3141021940) 8.6 mg/dL 8.6-10.6 eGFR (test code = 7566195911) mL/min/1.73m2 KRYSTLE (test code = KRYSTLE) Association [...] imaging tests). Lab Interpretation (test code = 48248-7) [facility]normal [facility] ClubTRLYNETTE [id number] 02:56:10* Test Item Value Reference Range Interpretation Comments TROPONIN I (test code = 4404656920) 0.004 ng/mL See_Comment [Automated message] The system [...] of biotin. Lab Interpretation (test code = 52043-5) [facility] ClubTROPONIN [id number] 02:56:10* Test Item Value Reference Range Interpretation Comments TROPONIN I (test code = 6382656875) 0.004 ng/mL See_Comment [Automated message] The system [...] of biotin. Lab Interpretation (test code = 14590-7) Normal [facility] ClubCREATINE [id number] 02:41:54* Test Item Value Reference Range Interpretation Comme nts CK (test code = 2704431718) 4607 U/L 33-194 H Lab Interpretation (test cod e = 18573-0) Abnormal [facility] ClubCREATINE [id number] 02:41:54* Test Item Value Reference Range Interpretation Comme nts CK (test code = 7196736509) 4607 U/L 33-194 H Lab Interpretation (test cod e = 19383-9) [facility]normal [facility] ClubN-TERMINAL [id number] 02:33:28* Test Item Value Reference Range Interpretation Comme nts NT-proBNP (test code = 3601622106) 14 pg/mL See_Comment [Automated message] The system which generated this result transmitted reference range: <=125. The reference range was not used to interpret this result as normal/abnormal. KRYSTLE (test code = KRYSTLE) Biotin has been reported to cause a negative bias, interpret results relative to patient's use of biotin. Lab Interpretation (test code = 13076-9) Normal [facility] ClubN-TERMINAL [id number] 02:33:28* Test Item Value Reference Range Interpretation Comme nts NT-proBNP (test code = 5452421405) 14 pg/mL See_Comment [Automated message] The system which generated this result transmitted reference range: <=125. The reference range was not used to interpret this result as normal/abnormal. KRYSTLE (test code = KRYSTLE) Biotin has been reported to cause a negative bias, interpret results relative to patient's use of biotin. Lab Interpretation (test code = 09521-0) [facility] ClubURINALYSIS2021-09-10 02:29:35* Test Item Value Reference Range Interpretation Comme nts APPEARANCE (test code = 2177200029) Clear Clear COLOR (test code = 5021002800) Yellow Yellow PH (test code = 8530389992) 4.8-8.0 SP GRAVITY (test code = 1164363403) 1.003-1.030 GLU U QUAL (test code = 6434591978) Normal Normal BLOOD (test code = 7996803324) Negative Negative KETONES (test code = 3169551818) Negative Negative PROTEIN (test code = 2887-8) Negative Negative UROBILIN (test code = 4365703876) 2.0 mg/dL Normal A BILIRUBIN (test code = 3501306826) Negative Negative NITRITE (test code = 5162343194) Negative Negative LEUK MO (test code = 2375166722) Negative Negative RBC/HPF (test code = 0462583041) See_Comment [Automated [employer]] The system which generated this result transmitted reference range: 0 - 3 HPF. The reference range was not used to interpret this result as normal/abnormal. WBC/HPF (test code = 9801144493) See_Comment [Automated [employer]] The system which generated this result transmitted reference range: 0 - 5 HPF. The reference range was not used to interpret this result as normal/abnormal. BACTERIA (test code = 7097446683) Negative Negative MUCOUS (test code = 5162275453) Slight Negative LPF A SQ EPITH (test code = 3021011510) <1 HPF Lab Interpretation (test code = 13117-4) [facility]UR[facility]ALYSIS2021-09-10 02:29:35* Test Item Value Reference Range Interpretation Comme nts APPEARANCE (test code = 4215462259) Clear Clear COLOR (test code = 3706044428) Yellow Yellow PH (test code = 2752461817) 4.8-8.0 SP GRAVITY (test code = 4194717759) 1.003-1.030 GLU U QUAL (test code = 5033472942) Normal Normal BLOOD (test code = 8072983349) Negative Negative KETONES (test code = 4919703852) Negative Negative PROTEIN (test code = 2887-8) Negative Negative UROBILIN (test code = 5383231199) 2.0 mg/dL Normal A BILIRUBIN (test code = 8597564105) Negative Negative NITRITE (test code = 4915669551) Negative Negative LEUK MO (test code = 4798136371) Negative Negative RBC/HPF (test code = 3827796224) See_Comment [Automated [employer]] The system which generated this result transmitted reference range: 0 - 3 HPF. The reference range was not used to interpret this result as normal/abnormal. WBC/HPF (test code = 6072710521) See_Comment [[employer]] The system which generated this result transmitted reference range: 0 - 5 HPF. The reference range was not used to interpret this result as normal/abnormal. BACTERIA (test code = 3855430021) Negative Negative MUCOUS (test code = 7312587490) Slight Negative LPF A SQ EPITH (test code = 0958072530) <1 HPF Lab Interpretation (test code = 51390-5) [facility] ClubCOM[facility] METABOLIC PANEL (09732)2021-05-24 02:25:07* Test Item Value Reference Range Interpretation Comme nts NA (test code = 2609664002) 137 mmol/L 135-145 K (test code = 2936979502) 3.1 mmol/L 3.5-5.0 L CL (test code = 2559944742) 102 mmol/L 98-108 CO2 TOTAL (test code = 4718224503) 22 mmol/L 23-31 L AGAP (test code = 1181672537) 2-16 BUN (test code = 5709075745) 28 mg/dL 7-23 H GLUCOSE (test code = 6574383349) 132 mg/dL 70-110 H CREATININE (test code = 0599902064) 1.77 mg/dL 0.60-1.25 H TOTAL BILI (test code = 3711673506) 1.0 mg/dL 0.1-1.1 CALCIUM (test code = 5319333059) 9.4 mg/dL 8.6-10.6 T PROTEIN (test code = 6595425543) 9.4 g/dL 6.3-8.2 H ALBUMIN (test code = 3965719236) 5.0 g/dL 3.5-5.0 ALK PHOS (test code = 9071238090) 79 U/L 34-122 ALTv (test code = 1742-6) 112 U/L 5-50 H AST(SGOT) (test code = 2453985216) 152 U/L 13-40 H eGFR (test code = 1299250293) mL/min/1.73m2 KRYSTLE (test code = KRYSTLE) Association [...] imaging tests). Lab Interpretation (test code = 41414-2) Abnormal [facility]. METABOLIC PANEL (30202)2021-05-24 02:25:07* Test Item Value Reference Range Interpretation Comme nts NA (test code = 2396759968) 137 mmol/L 135-145 K (test code = 6099036192) 3.1 mmol/L 3.5-5.0 L CL (test code = 4913866565) 102 mmol/L 98-108 CO2 TOTAL (test code = 7372984302) 22 mmol/L 23-31 L AGAP (test code = 7190276032) 2-16 BUN (test code = 0178346907) 28 mg/dL 7-23 H GLUCOSE (test code = 9777501278) 132 mg/dL 70-110 H CREATININE (test code = 0974926644) 1.77 mg/dL 0.60-1.25 H TOTAL BILI (test code = 6183584561) 1.0 mg/dL 0.1-1.1 CALCIUM (test code = 7919176020) 9.4 mg/dL 8.6-10.6 T PROTEIN (test code = 7717094522) 9.4 g/dL 6.3-8.2 H ALBUMIN (test code = 0624176720) 5.0 g/dL 3.5-5.0 ALK PHOS (test code = 5966196697) 79 U/L 34-122 ALTv (test code = 1742-6) 112 U/L 5-50 H AST(SGOT) (test code = 4478547372) 152 U/L 13-40 H eGFR (test code = 3374423325) mL/min/1.73m2 KRYSTLE (test code = KRYSTLE) Association [...] imaging tests). Lab Interpretation (test code = 85409-1) Abnormal [facility] WITH [id number] 02:03:22* Test Item Value Reference Range Interpretation Comme nts WBC (test code = 6690-2) See_Comment [[employer]] The system which generated this result transmitted reference range: 4.20 - 10.70 10*3/?L. The reference range was not used to interpret this result as normal/abnormal. RBC (test code = 789-8) See_Comment [Automated [employer]] The system which generated this result transmitted [...] g/dL 31.2-35.0 H RDW-SD (test code = 66563-0) 39.7 fL 38.5-51.6 RDW-CV (test code = 788-0) 12.7 % 12.1-15.4 PLT (test code = 777-3) See_Comment [Automated messa ge] The system which generated this result transmitted reference range: 150 - 328 10*3/?L. The reference range was not used to interpret this result as normal/abnormal. MPV (test code = 85889-7) 9.7 fL 9.8-13.0 L NRBC/100 WBC (test code = 9181130443) See_Comment [Automated [employer]] The system which generated this result transmitted reference range: 0.0 - 10.0 /100 WBCs. The reference range was not used to interpret this result as normal/abnormal. NRBC x10^3 (test code = [id number]) <0.01 See_Comment [Automated wavecatcha ge] The system which generated this result transmitted reference range: 10*3/?L. The reference range was not used to interpret this result as normal/abnormal. GRAN MAT (NEUT) % (test code = 770-8) 45.9 % IMM GRAN % (test code = [id number]) 0.20 % LYMPH % (test code = 736-9) 41.7 % MONO % (test code = 5905-5) 11.6 % EOS % (test code = 713-8) 0.3 % BASO % (test code = 706-2) 0.3 % GRAN MAT x10^3(ANC) (test code = [id number]) 3.95 10*3/uL 1.99-6.95 IMM GRAN x10^3 (test code = [id number]) <0.03 0.00-0.06 LYMPH x10^3 (test code = 731-0) 3.60 10*3/uL 1.09-3.23 H MONO x10^3 (test code = 742-7) 1.00 10*3/uL 0.36-1.02 EOS x10^3 (test code = 711-2) 0.03 10*3/uL 0.06-0.53 L BASO x10^3 (test code = 704-7) 0.03 10*3/uL 0.01-0.09 Lab Interpretation (test code = 19661-8) Abnormal [facility] WITH [id number] 02:03:22* Test Item Value Reference Range Interpretation [...] g/dL 31.2-35.0 H RDW-SD (test code = 47371-5) 39.7 fL 38.5-51.6 RDW-CV (test code = 788-0) 12.7 % 12.1-15.4 PLT (test code = 777-3) See_Comment [Automated messa ge] The system which generated this result transmitted reference range: 150 - 328 10*3/?L. The reference range was not used to interpret this result as normal/abnormal. MPV (test code = 55046-2) 9.7 fL 9.8-13.0 L NRBC/100 WBC (test code = 1445610673) See_Comment [Automated me ssage] The system which generated this result transmitted reference range: 0.0 - 10.0 /100 WBCs. The reference range was not used to interpret this result as normal/abnormal. NRBC x10^3 (test code = 9388764722) <0.01 See_Comment [Automated messa ge] The system which generated this result transmitted reference range: 10*3/?L. The reference range was not used to interpret this result as normal/abnormal. GRAN MAT (NEUT) % (test code = 770-8) 45.9 % IMM GRAN % (test code = 2768105129) 0.20 % LYMPH % (test code = 736-9) 41.7 % MONO % (test code = 5905-5) 11.6 % EOS % (test code = 713-8) 0.3 % BASO % (test code = 706-2) 0.3 % GRAN MAT x10^3(ANC) (test code = 8214130119) 3.95 10*3/uL 1.99-6.95 IMM GRAN x10^3 (test code = 7360553400) <0.03 0.00-0.06 LYMPH x10^3 (test code = 731-0) 3.60 10*3/uL 1.09-3.23 H MONO x10^3 (test code = 742-7) 1.00 10*3/uL 0.36-1.02 EOS x10^3 (test code = 711-2) 0.03 10*3/uL 0.06-0.53 L BASO x10^3 (test code = 704-7) 0.03 10*3/uL 0.01-0.09 Lab Interpretation (test code = 77204-6) [facility]normal [facility]ID NOW RAPID TESTING)2021-05-02 00:31:00* Test Item Value Reference Range Interpretation Comme nts SARS-CoV-2 Rapid ID NOW (test code = 41241-6) Not Detected Not Detected KRYSTLE (test code = KRYSTLE) ID NOW COVID-19 As say is an isothermal nucleic acid amplification test intended for the qualitative detection of nucleic acid from SARS-CoV-2 viral RNA in nasopharyngeal (SPECIAL DELIVERY CARRIER) specimens. It is used under Emergency Use [...] clinically indicated. Lab Interpretation (test code = 49797-4) Normal [facility] STREP SCREEN FOR GROUP [id number] 00:25:45* Test Item Value Reference Range Interpretation Comme nts Streptococcus pyogenes (grou p A) antigen (test code = 53847-3) Negative Negative Lab Interpretation (test cod e = 43077-4) Normal [facility]-19 (ID NOW RAPID TESTING)2021-04-02 01:41:42* Test Item Value Reference Range Interpretation Comme nts SARS-CoV-2 Rapid ID NOW (test code = 44687-2) Not Detected Not Detected KRYSTLE (test code = KRYSTLE) ID NOW COVID-19 As say is an isothermal nucleic acid amplification test intended for the qualitative detection of nucleic acid from SARS-CoV-2 viral RNA in nasopharyngeal (SPECIAL DELIVERY CARRIER) specimens. It is used under Emergency Use [...] clinically indicated. Lab Interpretation (test code = 55413-7) Normal [facility] STREP SCREEN FOR GROUP [id number] 01:39:31* Test Item Value Reference Range Interpretation Comme nts Streptococcus pyogenes (grou p A) antigen (test code = 76279-2) Negative Negative Lab Interpretation (test cod e = 21191-8) Normal [facility] W[facility] 3+ VW [id number] 02:41:03 Impression: No acute osseous abnormality. AFC: [id number] of Report Exam: XR WRIST 3+ [...] soft tissue edema.IMPRESSIONImpression: No acute osseous abnormality.AFC: [id number] of Report [facility]:32:01* Test Item Value Reference Range Interpretation Comme nts APPEARANCE (test code = 9897228854) Clear Clear COLOR (test code = 5196219600) Yellow Yellow PH (test code = 2610924788) 4.8-8.0 SP GRAVITY (test code = 2843930619) 1.003-1.030 GLU U QUAL (test code = 0138641684) Normal Normal BLOOD (test code = 8622925151) Negative Negative KETONES (test code = 5045570704) Negative Negative PROTEIN (test code = 2887-8) Negative Negative UROBILIN (test code = 8257007520) 2.0 mg/dL Normal A BILIRUBIN (test code = 1377729123) Negative Negative NITRITE (test code = 1316875555) Negative Negative LEUK MO (test code = 6208254129) Negative Negative RBC/HPF (test code = 0517135665) See_Comment [Automated messa ge] The system which generated this result transmitted reference range: 0 - 3 HPF. The reference range was not used to interpret this result as normal/abnormal. WBC/HPF (test code = 0232014744) See_Comment [Automated messa ge] The system which generated this result transmitted reference range: 0 - 5 HPF. The reference range was not used to interpret this result as normal/abnormal. BACTERIA (test code = 4916608817) Few Negative A MUCOUS (test code = 7406031676) Slight Negative LPF A SQ EPITH (test code = 3322972325) <1 HPF Lab Interpretation (test code = 72576-0) Abnormal [facility] CHEST 1 [id number] 04:09:05Impression: Mild thickening of the sol of the central airways, possibly reflectinginfectious or inflammatory bronchitis. RL: 460 AFC: [id number] Ordering physician: DARNELL HSU Indication: Cough and [...] airways, possibly reflectinginfectious or inflammatory bronchitis.RL: 460AFC: [id number] signed byMarisol Manzo MD, PhD at 11/14/2020 10:09 PM [facility] ClubCOMPREHENSIVE METABOLIC [id number] 00:00:00* Test Item Value Reference Range Interpretation Comme nts GLUCOSE (test code = 2217) 101 MG/DL BUN (test code = 2208) 11 MG/DL CREATININE (test code = 2214) 0.88 MG/DL eGFR AMER. (test cod e = 98451) 118 ML/MIN/1.73 eGFR NON- AMER. (test code = 23037) 102 ML/MIN/1.73 CALC BUN/CREAT (test code = [...] (test code = 2219) 88 U/L N-TERMINAL [id number] 15:43:00* Test Item Value Reference Range Interpretation Comme nts NT-proBNP (test code = 0310734515) <11 See_Comment [Automated message] The system which generated this result transmitted reference range: <=125 pg/mL. The reference range was not used to interpret this result as normal/abnormal. KRYSTLE (test code = KRYSTLE) Biotin has been reported to cause a negative bias, interpret results relative to patient's use of biotin. Lab Interpretation (test code = 94047-3) Normal [facility] WITH [id number] 15:27:00* Test Item Value Reference Range Interpretation Comme nts WBC (test code = 6690-2) See_Comment [Automated [employer]] The system which generated this result transmitted reference range: 4.20 - 10.70 10*3/?L. The reference range was not used to interpret this result as normal/abnormal. RBC (test code = 789-8) See_Comment [Automated wavecatcha ge] The system which generated this result [...] g/dL 31.2-35 H RDW-SD (test code = 03903-1) 37.3 fL 38.5-51.6 L RDW-CV (test code = 788-0) 11.9 % 12.1-15.4 L PLT (test code = 777-3) See_Comment [Automated wavecatcha ge] The system which generated this result transmitted reference range: 150 - 328 10*3/?L. The reference range was not used to interpret this result as normal/abnormal. MPV (test code = 73355-4) 9.7 fL 9.8-13 L NRBC/100 WBC (test code = 9745323506) See_Comment [Automated [employer].S[employer] ssage] The system which generated this result transmitted reference range: 0.0 - 10.0 /100 WBCs. The reference range was not used to interpret this result as normal/abnormal. NRBC x10^3 (test code = 3013874080) <0.01 See_Comment [Automated wavecatcha ge] The system which generated this result transmitted reference range: 10*3/?L. The reference range was not used to interpret this result as normal/abnormal. GRAN MAT (NEUT) % (test code = 770-8) 29.2 % IMM GRAN % (test code = 6642369822) 0.20 % LYMPH % (test code = 736-9) 59.0 % MONO % (test code = 5905-5) 10.1 % EOS % (test code = 713-8) 1.1 % BASO % (test code = 706-2) 0.4 % GRAN MAT x10^3(ANC) (test code = 0437018884) 1.57 10*3/uL 1.99-6.95 L IMM GRAN x10^3 (test code = 0353384296) <0.03 0-0.06 LYMPH x10^3 (test code = 731-0) 3.17 10*3/uL 1.09-3.23 MONO x10^3 (test code = 742-7) 0.54 10*3/uL 0.36-1.02 EOS x10^3 (test code = 711-2) 0.06 10*3/uL 0.06-0.53 BASO x10^3 (test code = 704-7) <0.03 0.01-0.09 Lab Interpretation (test code = 32482-7) Abnormal [facility] 1 [id number] 15:13:32No acute cardiopulmonary process. Preliminary Report Dictated by Resident: Efraín Alcaraz MD., have reviewed this study and agree withthe above report.PROCEDURE: XR CHEST1 VW CLINICAL INDICATION: dizzy TECHNIQUE: Frontal chest radiograph was obtained. COMPARISON: None FINDINGS: The lungs are clear. No pleural effusion or pneumothorax is seen. The heart is normal in size. No acute bony abnormality is noted. [facility], Radiant Results Inft User - 09/30/2020 [...] report.[facility] ClubTROPONIN [id number] 14:59:00* Test Item Value Reference Range Interpretation Comme nts TROPONIN I (test code = 8209194949) <0.012 See_Comment [Automated message] The system which [...] biotin. ? Lab Interpretation (test code = 07717-3) Normal [facility] ClubCOMP. METABOLIC PANEL (24568)2020-09-30 14:59:00* Test Item Value Reference Range Interpretation Comme nts NA (test code = 9519207005) 139 mmol/L 135-145 K (test code = 0614265447) 3.8 mmol/L 3.5-5 CL (test code = 3781678807) 103 mmol/L 98-108 CO2 TOTAL (test code = 9338147914) 26 mmol/L 23-31 AGAP (test code = 7934607435) 2-16 BUN (test code = 8523535262) 11 mg/dL 7-23 GLUCOSE (test code = 9313272182) 163 mg/dL 70-110 H CREATININE (test code = 0616850659) 0.85 mg/dL 0.6-1.25 TOTAL BILI (test code = 5345569259) 0.6 mg/dL 0.1-1.1 CALCIUM (test code = 2041411400) 9.0 mg/dL 8.6-10.6 T PROTEIN (test code = 5604826867) 8.0 g/dL 6.3-8.2 ALBUMIN (test code = 4134741889) 4.4 g/dL 3.5-5 ALK PHOS (test code = 8084209660) 75 U/L 34-122 ALTv (test code = 1742-6) 61 U/L 5-50 H AST(SGOT) (test code = 2095467641) 54 U/L 13-40 H eGFR Calculation (Non-) (test code = 6135864005) mL/min/1.73m2 eGFR Calculation () (test code = 4466839072) mL/min/1.73m2 KRYSTLE (test code = KRYSTLE) Association [...] imaging tests). Lab Interpretation (test code = 82572-6) [facility]normal [facility] BranchLIPASE, [id number] 14:59:00* Test Item Value Reference Range Interpretation Comme nts LIPASE (test code = 0395502316) 116 U/L 0-220 Lab Interpretation (test cod e = 63253-2) Normal [facility] ClubTroponin [id number] 04:30:00* Test Item Value Reference Range Interpretation Comme nts TROPONIN I (test code = 7650846678) <0.012 See_Comment [Automated message] The system which [...] biotin. ? Lab Interpretation (test code = 05799-5) Normal [facility] ClubComplete Metabolic [id number] 03:24:00* Test Item Value Reference Range Interpretation Comme nts NA (test code = 4316678121) 137 mmol/L 135-145 K (test code = 4782845257) 4.7 mmol/L 3.5-5 CL (test code = 2178829147) 101 mmol/L 98-108 CO2 TOTAL (test code = 7959538661) 27 mmol/L 23-31 AGAP (test code = 0812827566) 2-16 BUN (test code = 4273426213) 16 mg/dL 7-23 GLUCOSE (test code = 2067093980) 226 mg/dL 70-110 H CREATININE (test code = 8398117077) 1.13 mg/dL 0.6-1.25 TOTAL BILI (test code = 7115320133) 0.7 mg/dL 0.1-1.1 CALCIUM (test code = 7264414037) 9.3 mg/dL 8.6-10.6 T PROTEIN (test code = 5844906350) 7.8 g/dL 6.3-8.2 ALBUMIN (test code = 3146587805) 3.9 g/dL 3.5-5 ALK PHOS (test code = 8133259277) 79 U/L 34-122 ALTv (test code = 1742-6) 62 U/L 5-50 H AST(SGOT) (test code = 4636257335) 49 U/L 13-40 H eGFR Calculation (Non-) (test code = 7983300569) mL/min/1.73m2 eGFR Calculation () (test code = 3590771698) mL/min/1.73m2 KRYSTLE (test code = KRYSTLE) Association [...] imaging tests). Lab Interpretation (test code = 86466-5) Abnormal [facility] ClubLipase, [id number] 03:23:00* Test Item Value Reference Range Interpretation Comme nts LIPASE (test code = 7993208328) 317 U/L 0-220 H Lab Interpretation (test cod e = 28591-4) Abnormal [facility] ClubCBC with [id number] 03:21:00* Test Item Value Reference Range Interpretation Comme nts WBC (test code = 6690-2) See_Comment [Automated wavecatcha [employer]] The system which generated this result transmitted reference range: 4.20 - 10.70 10*3/?L. The reference range was not used to interpret this result as normal/abnormal. RBC (test code = 789-8) See_Comment [Automated [employer]] The system which generated this result transmitted [...] g/dL 31.2-35 H RDW-SD (test code = 06846-9) 37.9 fL 38.5-51.6 L RDW-CV (test code = 788-0) 12.4 % 12.1-15.4 PLT (test code = 777-3) See_Comment [Automated [employer]] The system which generated this result transmitted reference range: 150 - 328 10*3/?L. The reference range was not used to interpret this result as normal/abnormal. MPV (test code = 65766-1) 9.7 fL 9.8-13 L NRBC/100 WBC (test code = 2970472760) See_Comment [Automated me ssage] The system which generated this result transmitted reference range: 0.0 - 10.0 /100 WBCs. The reference range was not used to interpret this result as normal/abnormal. NRBC x10^3 (test code = 4668189039) <0.01 See_Comment [Automated messa ge] The system which generated this result transmitted reference range: 10*3/?L. The reference range was not used to interpret this result as normal/abnormal. GRAN MAT (NEUT) % (test code = 770-8) 36.7 % IMM GRAN % (test code = 3833193617) 0.10 % LYMPH % (test code = 736-9) 50.9 % MONO % (test code = 5905-5) 11.1 % EOS % (test code = 713-8) 0.8 % BASO % (test code = 706-2) 0.4 % GRAN MAT x10^3(ANC) (test code = 3213111291) 2.59 10*3/uL 1.99-6.95 IMM GRAN x10^3 (test code = 7080411825) <0.03 0-0.06 LYMPH x10^3 (test code = 731-0) 3.61 10*3/uL 1.09-3.23 H MONO x10^3 (test code = 742-7) 0.79 10*3/uL 0.36-1.02 EOS x10^3 (test code = 711-2) 0.06 10*3/uL 0.06-0.53 BASO x10^3 (test code = 704-7) 0.03 10*3/uL 0.01-0.09 Lab Interpretation (test code = 15955-4) Abnormal [facility] History and Physical Notes Date/Time Note Provider [...] by mouth daily. 90 tablet 1 Pancrelipase, Uhi-Kkty-Ufil, (Creon) 08[address]-[address] units [address] Cap [address] Particles Take 1 [...] He was getting medicinal marijuana while in [place] Sexual activity: Yes Partners: Male ROS: 06/27 [...] All questions were answered. Gibran Mcadams MD [facility] Notes Date/Time Note Provider Source 2025-04-06 23:09:20 [...] distress. No ataxia noted. Nicole Velásquez RN [facility] 2025-04-06 19:14:39 Pt given urine cup and placed back into lobby with instructions for collecting urine sample. [facility] 2025-04-06 19:09:53 Pt arrived ambulatory without assist. Pt c/o "locking muscles" and generalized pain for the last three days. 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 History provided by: Patient rn hospice used: No Past Medical History/Immunizations: Past Medical [...] History: Past Surgical History: Procedure Laterality Date [place] FOREARM OR WRIST SURGERY Left Review of [...] portal vein was evaluated with color Doppler. Photoengraving Photographer images were obtained for the record. COMPARISON: [...] 0.01 - 0.09 10*3/uL COMP. METABOLIC PANEL (48465) - Abnormal NA 134 (*) 135 - [...] bladder CBC WITH DIFF COMP. METABOLIC PANEL (45519) Creatine Kinase Magnesium Sedimentation Rate C-Reactive Protein [...] HCT: 46.8 [CH] 2039 HGB: 15.8 [CH] 2039 WBC x10 3 : 8.31 [CH] ED [...] hours as needed for Pain (scale 7-10). GVPDRL-XUXOUOTQ-USFEIDP (CREON) 3,000-9,500- 15,000 UNIT CAPSULE Take 1 [...] Specialty: FAMILY MEDICINE Relationship: PCP - General [address] [place] [address] [facility] [address] [facility] [address] Instructions: Please follow-up with PCP in 3-5 days. [facility]-Emergency Department Specialty: Emergency Medicine [address] [facility] [address] Instructions: If symptoms worsen I have considered [...] I was present for consultation as needed. [facility] 2025-01-02 08:34:39 Chief Complaint Patient presents with OTHER Follow up from ER Pancreatitis flare up Patient states he is not urinating like he should as well Houston Hatch MA Houston Hatch MA [facility] 2024 09:50:08 Chief Complaint Patient presents with Hospital F/U pancreatitis Houston Hatch MA [facility] 2024-06-07 20:01:54 Pt given printed and [...] in no apparent distress. Stephany Membreno RN [facility] 2024-06-07 17:51:04 Patient does not want another dose of nitro. [facility] 2024-06-07 16:53:18 Patient reports getting flu shot about 2 hours ago and now developing shortness of breath. Also has some chest pressure. Yosi Garcia RN [facility] 2024-04-02 12:54:12 Pt given printed and verbal [...] distress. Left with . Caty Pang RN [facility] 2024-04-02 08:35:20 Pt arrives with c/o upper abd pain, pt states known hx pancreatitis, had recent labs and lipase elevated. Pain present for one week, worsening last 2 days. Phone licensed appraiser recommended coming to ER. Pt has been hospitalized for this. Aminta Novoa RN [facility] 2024-03-30 08:10:34 Chief Complaint Patient presents with Consultation Yosi Dos Santos LVN [facility] 2024-02-20 23:53:18 Pt given printed and verbal [...] in no apparent distress. Carol Siddiqui RN [facility] 2024-02-20 21:42:07 Pt arrived ambulatory with complaints of abdominal pain and constipation x4 days. Pt reports hx of pancreatitis but has been out of Creon prescription for a while. Debora Bhatti RN [facility] 2023-12-09 23:47:26 Pt discharged with diagnosis of lumbar radiculopathy. Printed and verbal instructions reviewed with and given to pt. Prescriptions given x 2. Pt verbalized understanding of teaching, medication, and recommended follow-up. Denies questions or concerns at this time. Pt ambulatory at discharge. Appears in no apparent distress. No ataxia noted. Accompanied by family. 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 As a result of said fall, pt developed chronic recurrent low back pain. No fever or chills. No cauda equina symptoms History provided by: Patient and medical records rn hospice used: No Difficulty Urinating Presenting symptoms: no [...] History: Past Surgical History: Procedure Laterality Date [place] FOREARM OR WRIST SURGERY Left Review of [...] 0.01 - 0.09 10*3/uL COMP. METABOLIC PANEL (08298) - Abnormal NA 141 135 - 145 [...] CONTRAST Cbc with Diff Comp. Metabolic Panel (48466) Urinalysis Orders Placed This Encounter Medications ketorolac [...] -- ED COURSE Diagnosis/Impression as of 12/09/23 3096 Hematuria of unknown cause Lumbar radiculopathy Procedures: [...] hours as needed (Abdominal pain or cramping). QMZMLA-VSVZOFEA-PNFOAIQ (CREON) 3,000-9,500- 15,000 UNIT CAPSULE Take 1 [...] Brennan MD Relationship: PCP - General Luz MariaHernandez [address] [place] [id number] Amrik Graham MD Specialty: ORT-ORTHOPAEDIC SURGERY [address] [facility] [address] Electronically signed by: Abraham Orantes MD 12/09/232306 [facility] 2023-10-06 14:20:14 Chief Complaint Patient presents with New Patient Blood Pressure the patient States he will bring in all his meds the next ov [facility] 2023-07-23 07:15:00 [facility] ([facility]) EMERGENCY PROVIDER REPORT REPORT#:[id number] REPORT STATUS: Signed DATE:07/23/23 TIME: 07 PATIENT: NOAH PUTNAM UNIT #: [id number] ROOM/BED: AGE: 52 SEX: M PCP PHYS: DOES_NOT KNOW SERVICE AUTHOR: Tracy Hall MD R1 LOCATION: [facility] * ALL edits or amendments must [...] showed that the patient was seen in [place] ED on 07/[address] AP was negative for gallbladder, biliary, pancreatic and GI disease. Patient sees a GI doctor at [facility] and is in the process of getting a c-scope and EGD. Denies chest pain, SOB, hematemesis, melena and hematochezia. General Initial Greet Date/Time 07/23/23 05 Provider in Triage HPI Chief Complaint Abdominal [...] # (Auto) (1.0 - 3.8 K/mm3) 2.61 [place] # (Auto) (0.1 - 0.8 K/mm3) 0.68 Eos # (Auto) (0.0 - 0.2 K/mm3) 0.04 Baso # (Auto) (0.0 - 0.2 K/mm3) 0.02 Nucleated RBCs # (Man) (0.0 - 0.1 K/mm3) 0.00 Urines Urine Color (YELLOW) YELLOW Urine Appearance (CLEAR) CLEAR Urine pH (5.0 - 9.0) 6.0 Ur Specific Holl[place] (1.003 - 1.030) 1.025 Urine Protein (NEGATIVE [...] see [facility] GI in [place] after discharge. We will send Norflex, Bentyl, [...] Referrals Provider Referral: Karina Nascimento MD Address: [address] [place] [address] Provider Referral: Peter Pérez MD Address: [address] [place] [address] Provider Referral: Adebayo Bagley NP Address: [address] [place] [address] Provider Referral: Carola Brooks SPECIAL DELIVERY CARRIER Address: [address] [place] [address] Provider Referral: Mary Ibarra MD Address: [address] [place] [address] Provider Referral: Woody Roman SPECIAL DELIVERY CARRIER Address: [address] [address] [place] [address] Supervising Physician Note Resident Saw Pt This [...] for patient's abdominal pain. Patient called his furniture cleaner for which she is going to another hospital but the GI works at to be admitted for further care and evaluation. Discussed no indication for admission at this facility which patient understands and agrees with plan. Patient is discharged home with analgesia antiemetics at 1039 at 1048 RPT #:[id number] END OF REPORT [facility] 2023-07-23 05:32:00 [facility] ([facility]) EMERGENCY PROVIDER REPORT REPORT#:[id number] REPORT STATUS: Signed DATE:07/23/23 TIME: 0532 PATIENT: NOAH PUTNAM UNIT #: [id number] ROOM/BED: AGE: 52 SEX: M PCP PHYS: SERVICE DT: AUTHOR: Rita Ashford LOCATION: [facility] * ALL edits or amendments must [...] History Left wrist surgery at 0533 RPT #:[id number] END OF REPORT [facility] 2023-07-01 23:26:00 [id number] [place], [place] PATIENT NAME: NOAH PUTNAM ADMIT DATE: 07/01/23 ACCOUNT NO: [id number] ROOM NO: AGE: 52 REPORT TYPE: ELECTROCARDIOGRAM SEX: M : 74 ADMITTING PHYSICIAN: ATTENDING PHYSICIAN:Jessie Gleason DO Order: [id number] Test Reason : abdominal pain Test Date/Time [...] available Confirmed by JESSIE GLEASON DO ([id number]), development editor MARCIA GALVEZ ([id number]) on 07/20/2023 3:03:25 PM Referred By: Self Referred Confirmed by:JESSIE GLEASON DO at 1503 PATIENT NAME: NOHA PUTNAM [facility] 2023-07-01 23:22:00 [facility] OR [facility] EMERGENCY PROVIDER REPORT REPORT#:[id number] REPORT STATUS: Signed DATE:07/01/23 TIME: 2321 PATIENT: NOAH PUTNAM UNIT #: [id number] ROOM/BED: AGE: 52 SEX: M PCP PHYS: [...] care urgent care and was referred to [facility]. Patient states that he went to [facility] and was discharged with [...] % (Auto) (24 - 44 %) [address] [place] % (Auto) (0.0 - 4.0 %) 7.4 [...] 07/01 IV 07/01 2323 2327 Diagnostic Agents Sig/Hsirin Start time Last Medication Dose Route Stop [...] Screening/Cessation Denies tobacco use at 0109 RPT #[id number] END OF REPORT [facility] 2023-05-20 15:08:22 Formatting of this n ote is different from the original. Chief Complaint Patient presents with Consultation Andreia Regalado CMA I [facility] 2023-05-07 23:22:46 Formatting of this n ote might be different from the original. Discharge instructions reviewed with patient. Follow up care discussed. All questions answered by RN. Patient ambulatory to [facility]. Patient in possession of all belongings. RR even and unlabored, VSS, NAD noted. Steffanie Easley RN [facility] 2023-05-07 23:01:52 Formatting of this n ote might be different from the original. DC hold for fluid admin. [facility] 2023-05-07 22:51:08 Formatting of this n ote might be different from the original. This RN chaperoned DO for rectal exam. [facility] 2023-05-07 20:30:00 Formatting of this n ote [...] Patient reports he was seen at the [facility] a few days ago and treated [...] RR even and unlabored. VSS. NAD noted. [facility] 2023-05-07 17:35:38 Formatting of this n ote might be different from the original. Noah Putnam is a 52 year old male presenting to ED with c/o abd pain. Patient reports hx of pancreatitis. Patient reports began having blood in stool today. Patient to green chairs due to ED saturation Helene Newell RN [facility] 2023-05-02 00:32:03 Formatting of this n ote [...] and in no distress. Marcelo Tsai RN [facility] 2023-05-01 21:28:00 Formatting of this n ote [...] in the sun today." Lelo Carbajal RN [facility] 2023-04-22 13:03:22 Formatting of this n ote [...] in no apparent distress, Jacki Rodriguez RN [facility] 2023-04-22 10:35:21 Formatting of this n ote might be different from the original. Patient ate some potatoes from meal tray, states stomach began to cramp. Patient provided juice, states that his boss is going to being him some food that he will also try but states stomach is cramping. Caty Pang RN [facility] 2023-04-22 10:28:09 Formatting of this n ote might be different from the original. Patient provided meal tray. [facility] 2023-04-22 10:18:30 Formatting of this n ote might be different from the original. Patient encouraged to eat, advised of plan of care. [facility] 2023-04-22 06:30:24 Formatting of this n ote might be different from the original. Second liter of fluids completed, pt states he is still unable to urinate, RN gave pt a urinal and encouraged pt to try, pt stated that he will but he does not feel like going yet. T Carol Siddiqui RN [facility] 2023-04-22 05:20:00 Formatting of this n ote might be different from the original. Pt walked to the bathroom, cannot void. Provider informed, orders received [facility] 2023-04-22 03:56:00 Formatting of this n ote [...] amb with steady gait Carol Wu RN [facility] 2023-04-22 03:50:00 Formatting of this n ote [...] components within normal limits COMP. METABOLIC PANEL (63336) - Abnormal; Notable for the following components: [...] Notes: ED Course as of 04/22/23 1239 Wed Apr [...] pancreatitis type Natali Alexander DO 04/22/23 1238 [facility] 2023-04-16 08:49:36 Formatting of this n ote [...] complaining about the service. Rachana Pratt RN [facility] 2023-04-16 08:17:00 Formatting of this n ote might be different from the original. This RN and Provider at bedside. Provider explaining to pt that some of his pain could be due to being constipated, images showed pt is constipated. [facility] 2023-04-16 07:56:11 Formatting of this n ote might be different from the original. Pt returns from X-ray, NAD noted, family remains at bedside. T [facility] 2023-04-16 07:41:37 Formatting of this n ote might be different from the original. Pt transported to X-ray via [facility] transport. T [facility] 2023-04-16 07:20:37 Formatting of this n ote [...] bedside. Provider and this RN at bedside. [facility] 2023-04-16 07:08:22 Formatting of this n ote might be different from the original. Noah Putnam is a 52 year old male presenting to ED with c/o abd pain. Patient reports pain for a few weeks. Patient reports was recently seen and diagnosed with pancreatitis. Patient endorses pain to abd and radiates to back. Patient to room for further eval Helene Newell RN [facility] 2023-04-16 06:46:00 Formatting of this n ote is different from the original. [facility] Emergency Department Note Patient Name: Noah Putnam Date of : 1970 52 year old male Treatment Room: [address] [place] [address] Primary Care Physician: PATIENT DOES NOT HAVE A PCP Patient Escorted by: Family [5] Mode of Arrival: Personal means [1] EMS Treatment Prior to ED Arrival: [employer] treatment comments: Morning medications Travel and Exposure [...] to back History provided by: Patient rn hospice used: No Abdominal Pain Pain location: Generalized [...] History: Past Surgical History: Procedure Laterality Date [place] FOREARM OR WRIST SURGERY Left Review of [...] 0.01 - 0.09 10*3/uL COMP. METABOLIC PANEL (13835) - Abnormal NA 142 135 - 145 [...] VW CBC WITH DIFF COMP. METABOLIC PANEL (68598) LIPASE TROPONIN I Orders Placed This Encounter Medications NaCl 0.9% (NS) bolus infusion 1,000 mL ketorolac (TORADOL) injection 30 mg dicyclomine (BENTYL) injection 20 mg famotidine (PEPCID (PF)) injection 20 mg lactulose (CEPHULAC) solution 45 mL cccoft-bepwiqjf-wpiogfv (CREON) 12,000-38,000 -60,000 unit capsule 2 capsule enalaprilat (VASOTEC I.V.) injection 1.25 mg eonoju-bqmzymcx-xqtzups (CREON) 3,000-9,500- 15,000 unit capsule hyoscyamine sulfate (LEVSIN/SL) 0.125 mg sublingual tablet famotidine (PEPCID) 20 mg tablet bisacodyL 5 mg EC tablet First Provider Eval: ED Events Date/Time Event User Comments 04/16/23703 Medical Screening Begins BLOSSOM CANALES -- 04/16/23 [...] hours as needed (Abdominal pain or cramping). [id number]-[id number] (CREON) 3,000-9,500- 15,000 UNIT CAPSULE Take 1 [...] signed by: Adelaide Goodwin MD 04/16/23 0850 [facility] 2023-04-01 03:22:04 Formatting of this n ote [...] in no apparent distress. Lelo Carbajal RN [facility] 2023-04-01 00:02:06 Formatting of this n ote might be different from the original. History of chronic pancreatitis. Mid upper abdominal pain for 4 days. Complaining of oily stool. Vomited x2. Anuradha Nolen RN [facility]
[2025-04-29] MEDS ORDERED: LORazepam 2 MG/ML VIAL ONE (22:37)
[2025-04-29] MEDS ORDERED: METOCLOPRAMIDE 10 MG/2mL INJ ONE (22:37)
[2025-04-29] MEDS ORDERED: NA CHLORIDE 0.9% 1,000 ML ONE (22:38)
[2025-04-29] MEDS ORDERED: MORPHINE 4 MG/ML SYR ONE (22:38)
[2025-04-29 22:54] LABS: PT Prothrombin Time 12.8 SECONDS (10-13.0); Protime INR 1.14
[2025-04-29 22:57] LABS: Absolute Lymphocytes (CBC) 0.5 K/uL (0.7-4.9); Hematocrit 40.1 % (39.6-49.0); Hemoglobin 14.0 g/dL (13.6-17.9); MCH 30.1 pg (27.0-35.0); MCHC 34.9 g/dL (32.0-36.0); MCV 86.3 fL (80-100); MPV 7.6 fL (7.6-11.3); Nucleated RBC Absolute Count 0.0 (0-0); Nucleated Red Blood Cells % 0.0 % (0-0); RBC Red Blood Cell Count 4.64 M/uL (4.33-5.43); White Blood Count 6.50 thou/uL (4.3-10.9)
[2025-04-29 23:03] LABS: Urine Microscopic Reflex YN NO UMIC
[2025-04-29 23:12] LABS: Influenza A Ag Negative; Influenza B Ag Negative
[2025-04-29 23:13] LABS: SARS-CoV-2 Antigen Rapid Res Positive (Negative)
[2025-04-29 23:32] LABS: ALT/SGPT 52 U/L (16-61); AST/SGOT 38 U/L (15-37); Alkaline Phosphatase 50 U/L (45-117); BUN Blood Urea Nitrogen 24 mg/dL (7-18); Glucose Level 113 mg/dL (74-106); Potassium 4.4 mEq/L (3.5-5.1)
[2025-04-29 23:33] LABS: Albumin 3.8 g/dL (3.4-5.0); Albumin/Globulin Ratio 1.0 (1.1-1.8); Bilirubin Indirect, Calculated ND mg/dL (0.2-0.8); Globulin 3.8 g/dL (2.3-3.5); Troponin High Sensitivity 3.5 (<58.9)
[2025-04-29 23:34] LABS: Lipase 38 U/L (13-75); Magnesium 2.1
[2025-04-29 23:46] LABS: Anion Gap 11.4 mEq/L (5.0-15.0)
--- NOTE | 2025-04-30 02:14 | RAD REPORT ---
EXAM DESCRIPTION: Abdomen Pelvis W Contrast RadLex: CT ABDOMEN PELVIS WITH IV CONTRAST CLINICAL HISTORY: 54 years Male; ABD PAIN; IV ONLY Bed Name: 5 TECHNIQUE: CT of the abdomen and pelvis [with] intravenous contrast. All CT scans at this facility use dose modulation, iterative reconstruction, and/or weight based dosi ng when appropriate to reduce radiation dose to as low as reasonably achievable. COMPARISON: CT abdomen pelvis 04/19/2025. FINDINGS: Lower thorax: Lung bases are clear Abdomen: Stomach: Within normal limits Liver: Subcentimeter hypodensity in the right hepatic lobe, too small to characterize. No intrahepati c ductal distention. Gallbladder: Nondistended Pancreas: Within normal limits Spleen: Within normal limits Right kidney: No hydronephrosis. No focal lesion. Left kidney: No hydronephrosis. No focal lesion. Adrenal glands: Within normal limits Vascular structures: Within normal limits Nodes: No lymphadenopathy by size criteria Pelvis: Small bowel: No significant distention. Appendix: Within normal limits Colon: No distention or acute pericolonic edema. Peritoneum: No free intraperitoneal fluid or air. Bones: No acute bone findings. Bladder: Mild diffuse wall thickening. Reproductive organs: No acute findings. Prostatomegaly. Soft tissues: Small fat-containing umbilical hernia. Small fat-containing left inguinal hernia. IMPRESSION: 1. Mild diffuse bladder wall thickening, can be seen in setting of cystitis versus sequela of chron ic bladder outlet obstruction. Correlate with urinalysis. 2. Prostatomegaly. Correlate with PSA. Electronically signed by: Coreen Goldberg MD 04/30/2025 01:42 AM CDT TYG Due to temporary technical issues with the PACS[employer] reporting system, reports are being val d by the in-house radiologist without review as a courtesy to ensure prompt reporting the interpreting radiologist is fully responsible for the content of the report. Transcribed Date/Time: 04/30/2025 2:13 AM
--- NOTE | 2025-04-30 02:18 | EDPHYS ---
Physician Documentation [facility] Name: Noah Putnam Age: 54 yrs Sex: Male : 1970 Arrival Date: 04/29/2025 Time: 21:54 Bed 5 Private MD: ED Physician Cullen Trejo HPI: 04/29 22:35 This 54 yrs old Black Male presents to ER via Ambulatory with complaints of Low Back cp Pain, Abdominal Pain, Fever, General Weakness. 22:35 The patient presents with abdominal pain general. Severity of symptoms: in the emergency department the symptoms are unchanged, despite home interventions. The symptoms radiate to back. Associated signs and symptoms: Pertinent positives: nausea and vomiting, fever, body aches, Pertinent negatives: diarrhea, shortness of breath, chest pain, cough. Historical: - Allergies: 22:15 Bee Venom; br2 - PMHx: 22:15 chronic kidney disease; Chronic Pancreatitis; Herniated disc; Hypertension; br2 - PSHx: 22:15 left arm surgery; br2 - Immunization history:: Adult Immunizations up to date. - Infectious Disease History:: Denies. - Social history:: Smoking status: Patient/guardian denies using tobacco, Patient/guardian denies using alcohol, street drugs. ROS: 22:40 Eyes: Negative for injury, pain, redness, and discharge, cp 22:40 Constitutional: Positive for body aches, chills, 22:40 ENT: Negative for drainage from ear(s), ear pain, sore throat, difficulty swallowing, difficulty handling secretions, 22:40 Cardiovascular: Negative for chest pain, palpitations, 22:40 Respiratory: Negative for cough, shortness of breath, wheezing, 22:40 Abdomen/GI: Positive for abdominal pain, nausea and vomiting, diarrhea, Negative for constipation, hematemesis, black/tarry stool, rectal bleeding, 22:40 : Negative for urinary symptoms, hematuria, testicular pain 22:40 Neuro: Negative for altered mental status, dizziness, headache, numbness, syncope, weakness, 22:40 All other systems are negative, Exam: 22:45 Constitutional: The patient appears in no acute distress, alert, awake, cp non-diaphoretic, non-toxic, well developed, well nourished, uncomfortable, 22:45 Head/Face: Normocephalic, atraumatic. cp 22:45 Eyes: Periorbital structures: appear normal, Conjunctiva: normal, no exudate, no injection, Sclera: no appreciated abnormality, Lids and lashes: appear normal, bilaterally, 22:45 ENT: External ear(s): are unremarkable, Nose: is normal, Mouth: Lips: moist, Oral mucosa: moist, Posterior pharynx: Airway: no evidence of obstruction, patent, erythema, is not appreciated, exudate, is not appreciated, 22:45 Neck: ROM/movement: is normal, is supple, without pain, no range of motions limitations, 22:45 Chest/axilla: Inspection: normal, 22:45 Cardiovascular: Rate: tachycardic, Rhythm: regular, Edema: is not appreciated, JVD: is not appreciated, 22:45 Respiratory: the patient does not display signs of respiratory distress, Respirations: normal, no use of accessory muscles, no retractions, labored breathing, is not present, Breath sounds: are clear throughout, no decreased breath sounds, no stridor, no wheezing, 22:45 Abdomen/GI: Inspection: distension, that is mild, Bowel sounds: active, all quadrants, Palpation: soft, in all quadrants, moderate abdominal tenderness, in all quadrants, rebound tenderness, is not appreciated, 22:45 Back: pain, that is moderate, CVA tenderness, is absent, 22:45 Skin: no rash present. 22:45 Neuro: Orientation: to person, place \T\ time. Mentation: is normal, Motor: moves all fours, strength is normal, Sensation: is normal, 23:03 ECG was reviewed by the Attending Physician. cp Vital Signs: 22:13 BP 171 / 86; Pulse 102; Resp 20; Temp 97.6; Pulse Ox 96% ; Weight 125.19 kg; Height 6 br2 ft. 5 in. ; Pain 8/10; 22:26 BP 158 / 92; Pulse 101; Resp 18; Temp 98.4; Pulse Ox 97% on R/A; mf3 23:50 BP 145 / 85; Pulse 98; Resp 18; Temp 99; Pulse Ox 98% on R/A; mf3 08 01:41 BP 114 / 100; Pulse 98; Resp 19; Pulse Ox 97% on R/A; mf3 03:04 BP 132 / 73; Pulse 100; Resp 15; Pulse Ox 96% on R/A; al5 04/29 22:13 Body Mass Index 32.73 (125.19 kg, 195.58 cm) br2 04/29 22:13 Pain Scale: Adult br2 Mary Coma Score: 04/29 22:26 Eye Response: spontaneous(4). Motor Response: obeys commands(6). Verbal Response: mf3 oriented(5). Total: 15. MDM: 22:05 Medical Screening Exam initiated cp 04/30 02:16 Data reviewed: vital signs, nurses notes, lab test result(s), radiologic studies, CT cp scan, plain films, and as a result, I will discharge patient. 02:16 Differential diagnosis: non-specific abd pain, pancreatitis, Peptic Ulcer Disease, cp Pyelonephritis, urinary tract infection, sepsis. I considered the following discharge prescriptions or medication management in the emergency department Medications were administered in the Emergency Department. See MAR. Independent interpretation of the following test(s) in the Emergency Department EKG: See my EKG interpretation above. Care significantly affected by the following chronic conditions: Hypertension, Chronic Kidney Disease. Counseling: I had a detailed discussion with the patient and/or guardian regarding the historical points, exam findings, and any diagnostic results supporting the discharge/admit diagnosis, lab results, radiology results, to return to the emergency department if symptoms worsen or persist or if there are any questions or concerns that arise at home. Response to treatment: the patient's symptoms have markedly improved after treatment, and as a result, I will discharge patient. Special discussion: Based on the patient's Hx, exam, and Dx evaluation, there is no indication for emergent surgery or inpatient Tx. It is understood by the patient/guardian that if the Sx's persist or worsen they need to return immediately for re-evaluation. 04/29 22:30 Order name: Basic Metabolic Panel; Complete Time: 23:52 cp 04/29 23:52 Interpretation: Normal except: GLUC 113; BUN 24; CRE 1.45; GFR 58. 04/29 22:30 Order name: CBC with Diff; Complete Time: 23:52 cp 04/29 23:53 Interpretation: Normal except: LOS% 79.5; LYM% 7.8; LYMA 0.5. cp 04/29 22:30 Order name: LFT's; Complete Time: 23:52 cp 04/29 22:30 Order name: Magnesium; Complete Time: 23:52 cp 04/29 22:30 Order name: PT-INR; Complete Time: 23:52 cp 04/29 22:30 Order name: Troponin HS; Complete Time: 23:52 cp 04/29 22:30 Order name: Lipase; Complete Time: 23:52 cp 04/29 22:31 Order name: UA Rfx Keo Cult if indicated; Complete Time: 23:52 cp 04/30 01:59 Interpretation: Reviewed. 04/29 22:31 Order name: COVID-19 Ag + Flu A+B Ag; Complete Time: 23:52 cp 04/29 22:31 Order name: CK; Complete Time: 23:52 cp 04/29 22:30 Order name: XRAY Chest (1 view) cp 04/29 23:54 Order name: CT Abd/Pelvis - IV Contrast Only cp 04/29 22:30 Order name: EKG; Complete Time: 22:31 cp 04/29 22:30 Order name: Cardiac monitoring; Complete Time: 22:48 cp 04/29 22:30 Order name: EKG - Nurse/Tech; Complete Time: 22:48 cp 04/29 22:30 Order name: IV Saline Lock; Complete Time: 22:48 cp 04/29 22:30 Order name: Labs collected and sent; Complete Time: 22:48 cp 04/29 22:30 Order name: O2 Per Protocol; Complete Time: 22:48 cp 04/29 22:30 Order name: O2 Sat Monitoring; Complete Time: 22:48 cp 04/30 01:58 Order name: Bladder Scanner; Complete Time: 03:04 cp 04/30 01:59 Order name: PO challenge; Complete Time: 02:34 cp EC/16 23:03 Rate is 100 beats/min. Rhythm is regular. RI interval is normal. QRS interval is cp normal. QT interval is normal. T waves are Inverted in lead aVR. Interpreted by me. Reviewed by me. Administered Medications: 22:47 Drug: Ativan IVP 1 mg IVP once Route: IVP; Site: right antecubital; mf3 04/30 01:35 Follow up: Response: No adverse reaction ha1 04/29 22:47 Drug: NS 0.9% IV 1000 ml IV at 1000 ml once; to be given as a bolus over 60 minutes [facility] Route: IV; Rate: 1000 ml; Site: right antecubital; 04/30 01:40 Follow up: Response: No adverse reaction; IV Status: Completed infusion; IV Intake: [facility] 1000ml 04/29 22:48 Drug: metoCLOPramide IVP 10 mg IVP once; over 1 to 2 minutes Route: IVP; Site: right 3 antecubital; 04/30 01:36 Follow up: Response: No adverse reaction [facility] 04/29 22:48 Drug: morphine IVP or IV 4 mg IVP once over 4 mins Route: IVP; Infused Over: 4 mins; [facility] Site: right antecubital; 23:00 Follow up: Response: Pain is decreased; RASS: Alert and Calm (0) [facility] 04/30 01:36 Follow up: Response: No adverse reaction [facility] Disposition: 02:38 I was immediately available on-site in the Emergency Department for consultation in the [facility] care of the patient. Disposition Summary: 04/30/25 02:17 Discharge Ordered Notes: Location: Home cp Problem: new cp Symptoms: have improved cp Condition: Stable cp Diagnosis - SARS-associated coronavirus as the cause of diseases classified elsewhere cp - Nausea with vomiting, unspecified cp - Enlarged prostate with lower urinary tract symptoms cp Followup: cp - With: Jose Luis Lagunas MD - When: 1 week - Reason: enlarged prostate Discharge Instructions: - Discharge Summary Sheet cp - Nausea and Vomiting, Adult cp - Aspirin and Your Heart cp - COVID-19 cp - How to Protect Yourself and Others - [facility] (11/08/2021) cp - 10 Things You Can Do to Manage Your COVID-19 Symptoms at Home - [facility] (03/29/2021) cp - COVID-19: Quarantine and Isolation - [facility] (12/11/2021) cp - COVID-19: What to Do If You Are Sick - [facility] (12/03/2021) cp Forms: - Medication Reconciliation Form cp - Antibiotic Education cp - Prescription Opioid Use cp - Patient Portal Instructions cp - Leadership Thank You Letter cp Prescriptions: - Paxlovid 300 mg (150 mg x 2)-100 mg Oral Tablet, Dose Pack - take 1 dose pack ORAL route as directed on dose pack take TWO 150 mg tablets of cp nirmatrelvir with ONE 100 mg tablet of ritonavir twice daily for 5 days; 30 tablet; Refills: 0, Product Selection Permitted - Ibuprofen 800 mg Oral Tablet - take 1 tablet ORAL route every 8 hours As needed take with food; 30 tablet; cp Refills: 0, Product Selection Permitted - ondansetron 8 mg Oral Tablet,disintegrating - take 1 tablet ORAL route every 12 hours; 15 tablet; Refills: 0, Product cp Selection Permitted Signatures: Dispatcher [employer] EDFL Jimbo Galvan PA-C PA-C cp Sims, Marcus, DO ms3 Temi Love RN RN br2 Ghazala Lewis RN RN mf3 Cristy Underwood RN ha1 Corrections: (The following items were deleted from the chart) 04/29 22:31 22:31 BASIC METABOLIC PANEL+C.LAB.BRZ ordered. EDMS EDMS 22:31 22:31 CBC+H.LAB.BRZ ordered. EDMS EDMS 22:31 22:31 HEPATIC FUNCTION+C.LAB.BRZ ordered. EDMS EDMS 22:31 22:31 MAGNESIUM+C.LAB.BRZ ordered. EDMS EDMS 22:31 22:31 PROTIME (+INR)+COAG.LAB.BRZ ordered. EDMS EDMS 22:31 22:31 Troponin High Sensitivity+C.LAB.BRZ ordered. EDMS EDMS 22:31 22:31 LIPASE+C.LAB.BRZ ordered. EDMS EDMS 22:31 22:31 Chest Single View+RAD.RAD.BRZ ordered. EDMS EDMS 23:54 23:54 Abdomen Pelvis W Con+CT.RAD.BRZ ordered. EDFL EDMS 05/01 00:59 00:55 Constitutional: Positive for body aches, chills, cp cp 00:59 00:55 Cardiovascular: Negative for chest pain, palpitations, cp cp 00:59 00:55 Respiratory: Negative for cough, shortness of breath, wheezing, cp cp 00:59 00:55 Abdomen/GI: Positive for abdominal pain, nausea and vomiting, diarrhea, Negative cp for constipation, hematemesis, black/tarry stool, rectal bleeding, cp 00:59 00:55 Eyes: Negative for injury, pain, redness, and discharge, cp cp 00:59 00:55 ENT: Negative for drainage from ear(s), ear pain, sore throat, difficulty cp swallowing, difficulty handling secretions, cp 00: 00:55 Neuro: Negative for altered mental status, dizziness, headache, numbness, cp syncope, weakness, cp : 00:55 : Negative for urinary symptoms, hematuria, testicular pain cp cp 00:55 All other systems are negative, cp cp
--- NOTE | 2025-04-30 02:18 | ER ---
Nurse's Notes [facility] Name: Noah Putnam Age: 54 yrs Sex: Male : 1970 Arrival Date: 04/29/2025 Time: 21:54 Bed 5 Private MD: Diagnosis: SARS-associated coronavirus as the cause of diseases classified elsewhere;Nausea with vomiting, unspecified;Enlarged prostate with lower urinary tract symptoms Presentation: 04/29 22:13 Chief complaint: Patient states: Pt states at approx 1430 pt began having chills, br2 nausea/vomiting/diarrhea and ab pain. Coronavirus screen: Client denies travel out of the [place] in the last 14 days. Ebola Screen: Patient denies exposure to infectious person. Initial Sepsis Screen: Does the patient meet any 2 criteria? HR > 90 bpm. Does the patient have a suspected source of infection? No. Patient's initial sepsis screen is negative. Risk Assessment: Do you want to hurt yourself or someone else?. Onset of symptoms was April 29, 2025 at 14:30. 22:13 Method Of Arrival: Ambulatory br2 22:13 Acuity: BREEZY 3 br2 Triage Assessment: 22:15 General: Appears in no apparent distress. comfortable, Behavior is calm, cooperative. br2 Pain: Complains of pain in back, abdomen and neck Pain currently is 8 out of 10 on a pain scale. Historical: - Allergies: 22:15 Bee Venom; br2 - PMHx: 22:15 chronic kidney disease; Chronic Pancreatitis; Herniated disc; Hypertension; br2 - PSHx: 22:15 left arm surgery; br2 - Immunization history:: Adult Immunizations up to date. - Infectious Disease History:: Denies. - Social history:: Smoking status: Patient/guardian denies using tobacco, Patient/guardian denies using alcohol, street drugs. Screenin:26 [facility] ED Fall Risk Assessment (Adult) History of falling in the last 3 months, mf3 including since admission No falls in past 3 months (0 pts) Confusion or Disorientation No (0 pts) Intoxicated or Sedated No (0 pts) Impaired Gait No (0 pts) Mobility Assist Device Used No (0 pt) Altered Elimination No (0 pt) Score/Fall Risk Level 0 - 2 = Low Risk. [facility] ED Fall Risk Assessment (Adult) Score/Fall Risk Level 0 - 2 = Low Risk Oriented to surroundings, Maintained a safe environment, Hourly rounding (assess needs \T\ fall precautionary measures) done. Abuse screen: Denies threats or abuse. Denies injuries from another. Nutritional screening: No deficits noted. Tuberculosis screening: No symptoms or risk factors identified. Never had TB. Assessment: 22:26 General: Appears in no apparent distress. comfortable, Behavior is calm, cooperative, mf3 appropriate for age. Pain: Complains of pain in abdomen Pain does not radiate. Pain radiates to abdomen Pain currently is 8 out of 10 on a pain scale. Neuro: Level of Consciousness is awake, alert, obeys commands, Oriented to person, place, time, situation, Appropriate for age. Cardiovascular: Capillary refill Patient's skin is warm and dry. Chest pain is denied. Respiratory: Airway is patent Trachea midline Respiratory effort is even, unlabored, Respiratory pattern is regular, symmetrical. GI: Bowel sounds present X 4 quads. hyperactive in right upper quadrant, left upper quadrant, right lower quadrant and left lower quadrant Abd is soft X 4 quads Abdomen has rebound tenderness X 4 quads. Reports lower abdominal pain, upper abdominal pain, cramping, nausea, vomiting. 23:30 Reassessment: Patient and/or family updated on plan of care and expected duration. Pain mf3 level reassessed. Patient is alert, oriented x 3, equal unlabored respirations, skin warm/dry/pink. 04/30 00:35 Reassessment: No changes from previously documented assessment. Patient and/or family mf3 updated on plan of care and expected duration. Pain level reassessed. Patient is alert, oriented x 3, equal unlabored respirations, skin warm/dry/pink. pain now 6/10 Patient states feeling better. 01:30 Reassessment: Patient and/or family updated on plan of care and expected duration. Pain mf3 level reassessed. Patient is alert, oriented x 3, equal unlabored respirations, skin warm/dry/pink. 02:20 Reassessment: Patient and/or family updated on plan of care and expected duration. Pain mf3 level reassessed. DISCHARGE PENDING WAITING ON BLADDER SCANNER. 03:03 Reassessment: bladder scan reveals 73 mL of urine in patient's bladder. al5 Vital Signs: 04/29 22:13 BP 171 / 86; Pulse 102; Resp 20; Temp 97.6; Pulse Ox 96% ; Weight 125.19 kg; Height 6 br2 ft. 5 in. ; Pain 8/10; 22:26 BP 158 / 92; Pulse 101; Resp 18; Temp 98.4; Pulse Ox 97% on R/A; mf3 23:50 BP 145 / 85; Pulse 98; Resp 18; Temp 99; Pulse Ox 98% on R/A; mf3 04/30 01:41 BP 114 / 100; Pulse 98; Resp 19; Pulse Ox 97% on R/A; mf3 03:04 BP 132 / 73; Pulse 100; Resp 15; Pulse Ox 96% on R/A; al5 04/29 22:13 Body Mass Index 32.73 (125.19 kg, 195.58 cm) br2 04/29 22:13 Pain Scale: Adult br2 [place] Coma Score: 04/29 22:26 Eye Response: spontaneous(4). Motor Response: obeys commands(6). Verbal Response: mf3 oriented(5). Total: 15. ED Course: 21:56 Patient arrived in ED. im 21:58 Jimbo Galvan PA is PHCP. cp 21:58 Cullen Trejo DO is Attending Physician. cp 22:15 Triage completed. br2 22:15 Arm band placed on right wrist. br2 22:26 Ghazala Lewis, RN is Primary Nurse. mf3 22:26 Patient has correct armband on for positive identification. Bed in low position. Call mf3 light in reach. Provided Education on: pt seen by JUSTIN Galvan. Pt aware of plan of care. 22:26 Inserted saline lock: 20 gauge in right antecubital area, using aseptic technique. mf3 Blood collected. Flushed with 10 mL NS. 23:02 XRAY Chest (1 view) In Process Unspecified. EDMS 04/30 00:47 CT Abd/Pelvis - IV Contrast Only In Process Unspecified. EDMS 02:16 Jose Luis Lagunas MD is Referral Physician. cp 03:03 No provider procedures requiring assistance completed. IV discontinued, intact, al5 bleeding controlled, No redness/swelling at site. Pressure dressing applied. Administered Medications: 04/29 22:47 Drug: Ativan IVP 1 mg IVP once Route: IVP; Site: right antecubital; mf3 08/17 01:35 Follow up: Response: No adverse reaction ha1 04/29 22:47 Drug: NS 0.9% IV 1000 ml IV at 1000 ml once; to be given as a bolus over 60 minutes 3 Route: IV; Rate: 1000 ml; Site: right antecubital; 04/30 01:40 Follow up: Response: No adverse reaction; IV Status: Completed infusion; IV Intake: mf3 1000ml 04/29 22:48 Drug: metoCLOPramide IVP 10 mg IVP once; over 1 to 2 minutes Route: IVP; Site: right 3 antecubital; 04/30 01:36 Follow up: Response: No adverse reaction 3 04/29 22:48 Drug: morphine IVP or IV 4 mg IVP once over 4 mins Route: IVP; Infused Over: 4 mins; 3 Site: right antecubital; 23:00 Follow up: Response: Pain is decreased; RASS: Alert and Calm (0) [facility] 04/30 01:36 Follow up: Response: No adverse reaction [facility] Medication: 04/29 22:26 VIS not applicable for this client. mf3 Intake: 04/30 01:40 IV: 1000ml; Total: 1000ml. 3 Outcome: 02:17 Discharge ordered by MD. gale 03:03 Discharged to home ambulatory, al5 03:03 Condition: good 03:03 Discharge instructions given to patient, Instructed on discharge instructions, follow up and referral plans. medication usage, Demonstrated understanding of instructions, follow-up care, medications, Prescriptions given X 3, 03:04 Patient left the ED. al5 Signatures: Dispatcher [employer] EDMS Jimbo Galvan PA-C PA-C cp Ayala, Heidy RN RN ha1 Elen Livingston Amanda, RN RN al5 Temi Love RN RN br2 Ghazala Lewis RN RN 3 Corrections: (The following items were deleted from the chart) 01:38 01:37 Response: Pain is decreased; RASS: Alert and Calm (0) [facility]3
[2025-04-30 11:56] VITALS: TEMP 99
[2025-04-30 12:00] VITALS: BP 132/73; O2SAT 96
--- NOTE | 2025-04-30 13:33 | RAD REPORT ---
EXAM: Chest Single View HISTORY: 54 years Male upper abdomen pain COMPARISON: 02/19/25 FINDINGS: LUNGS/PLEURA: The lungs are clear. No pleural effusions or pneumothorax. No pulmonary edema. CARDIAC/MEDIASTINUM: The cardiac silhouette is within normal limits. UPPER ABDOMEN: No significant abnormality. BONES: No acute abnormality. LINES/TUBES/OTHER: N/A IMPRESSION: No evidence of acute cardiopulmonary disease.
== END 2025-04-30 03:04 | disposition home or self-care (01) ==
LOC: ER 21:54
DX: U07.1 COVID-19 (principal); N40.1 Benign prostatic hyperplasia with lower urinary tract symptoms
CPT/HCPCS: 36415; 71045; 74177; 80048; 80076; 81003; 82550; 83690; 83735; 84484; 85025; 85610; 87428; 93005; 96361; 96374; 96375; 99284; J2765; J7030; Q9967

== ENCOUNTER 2025-06-07 19:20 | Emergency (ER) | payer BC, SELFPAY ==
--- OUTSIDE RECORDS SUMMARY | 2025-06-07 19:39 | XMS REPORT | Continuity of Care Document ---
Author Name Unknown Address [address] [facility]. [address] [place] [address] [facility] Address [address] [facility]. [address] [place] [address] Care Team Providers Care Dtp Operator Name Role Phone Emily Gaines Primary Care Physician [phone] Mayuri James Attending Clinician UnavailRENÉ Hill Attending Clinician Unavailable AUGUSTINE WASSERMAN Attending Clinician Unavailab LION Laguna Attending Clinician Unavailable ANSELMO GENAO Attending Clinician Unavailable LEANDRO MANN Attending Clinician Unava ilable NEGRITA Attending Clinician Unavailable [id number] Attending Clinician Unavailable OMARI RAZA Attending Clinician Unavailable ADRI TAYLOR Attending Clinician Unavailable MD RICKI Attending Clinician Unavailab LUKE Lopez Attending Clinician Unavailable LUKE CLARKE Attending Clinician Unavailable Luke Clarke PA-C Attending Clinician [phone] HARSHIL STYLES Attending Clinician UnavailFOUZIA Davis Attending Clinician Unavailable GIBRAN MCADAMS Attending Clinician Unavailable BROOK ALLEN Attending Clinician Unav ailable LAB90 Attending Clinician Unavailable Trevor TAYLOR Attending Clinician Unavailable Trevor TAYLOR Attending Clinician Unavailable GERALD VIDAL Attending Clinician Unavailable LAB47 Attending Clinician Unavailable Karl Ferguson MD Attending Clinician [phone] OUTSIDE, REPORTED Attending Clinician UnavailElida Patrick MD Attending Clinician [phone] LETI RIVAS Attending Clinician Unavailable LETI RIVAS Attending Clinician Unavailable ABRAHAM ORANTES Attending Clinician Unavailable Abraham Orantes MD Attending Clinician [phone] Chavez Turner DO Attending Clinician [phone] CALLIE MUNOZ Attending Clinician Unavailable CALLIE MUNOZ Attending Clinician Unavailable MERLYN HIDALGO Attending Clinician Unavailable Doctor Unassigned, [place] Attending Clinician U navailable ADAN CHESTER Attending Clinician Unav ailable KIARA RICHARDSON Attending Clinician Unava ilable JOHNATHAN AVILA Attending Clinician Unavail able Johnathan Avila MD Attending Clinician Jessie Paul Attending Clinician Unavaila JIMMY Mayfield Attending Clinician UnavailSTEPHIE Damian Attending Clinician Unavailab MIRIAM Cervantes Attending Clinician Unavailable MIRIAM LUDWIG Attending Clinician Unavailable Hina ALLEN, Haresh Saeed Attending Clinician + Jessie Gleason Attending Clinician Unavailab Dieudonne Winters Attending Clinician Unavailab atilio BANGURA Attending Clinician Unavailable JESSICA LANE Attending Clinician Unavaila AYDIN Miller Attending Clinician Unavailable Aydin Matos MD Attending Clinician + NATALI ALEXANDER Attending Clinician Unavailab Natali Glass DO Attending Clinician + ADELAIDE GOODWIN Attending Clinician Unavailable Adelaide Goodwin MD Attending Clinician [phone] HEMALATHA MORA Attending Clinician Unavailable Morgan QUOTE CLERK, Hemalatha Attending Clinician + JESSICA GONZALES Attending Clinician Unavailable Jessica Pradhan Attending Clinician [phone] SOHAM CLARKE Attending Clinician Unavaillupillo Clarke MD, Soham Sethi Attending Clinician + Azam Lion WALDROP Attending Clinician + MARK HERNANDEZ Attending Clinician Unavailable Mark Hernandez MD Attending Clinician [phone] Ellen Carroll RN Attending Clinician + [phone] EMELIA GALLEGO Attending Clinician Unavailable Coco WALDROP, Madison Tripathi Attending Clinician +[phone] Emelia Gallego DO Attending Clinician [phone] Felipe Valdivia Attending Clinician + FELIPE ORTEGA Attending Clinician Unavailable Gabriella Zarate NP Attending Clinician +[phone] Nurse, Adc Pob Immunization Attending Clinician Unavailable David Clarke DO Attending Clinician [phone] Nikhil Trevizo Attending Clinician + [phone] NIKHIL BLANTON Attending Clinician Unavailable Pcp, Patient Does Not Have A Attending Clinician Isabela BARRIGA, Mirna Topete Attending Clinician Unavailab Darnell Denny Attending Clinician +[phone] Jessy Siddiqui DO Attending Clinician [phone] AUGUSTINE WASSERMAN Admitting Clinician Unavailab LION Laguna Admitting Clinician Unavailable LUKE CLARKE Admitting Clinician Unavailable Trevor TAYLOR Admitting Clinician Unavailable ABRAHAM ORANTES Admitting Clinician Unavailable JOHNATHAN AVILA Admitting Clinician Unavail able UNDEFINED Admitting Clinician Unavailable STEPHIE HEWITT Admitting Clinician Unavailab HARESH Sharma Admitting Clinician UnaDieudonne Naik Admitting Clinician Unavailab JESSICA Elizabeth Admitting Clinician Unavaila NATALI Roe Admitting Clinician Unavailab ADELAIDE Rader Admitting Clinician Unavailable HEMALATHA MORA Admitting Clinician Unavailable SOHAM CLARKE Admitting Clinician Unavailabl MARK Nick Admitting Clinician Unavailable Mark Hernandez MD Admitting Clinician [phone] Trevor TAYLOR Admitting Clinician Unavailable EMELIA GALLEGO Admitting Clinician Unavailable Emelia Gallego DO Admitting Clinician [phone] DARNLEL HSU Admitting Clinician Unavailable Payers Payer Name Policy Type Policy Number Effective Date Expirati on Date Source NAVNEET Reynoso/ LUZ MARIA SOMMER [id number] 2023 00:00:00 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 94 9 [id number] 2024 00:00:00 [facility] INS PROGRAM 2 [id number] 2023 00:00:00 [employer] GENERIC [id number] 2021 00:00:00 [place] [address] [id number] Common [facility] Problems Condition Name Condition Details Condition Category Status Onset Date Resolution Date Last Treatment Date Treating Clinician Comments Source Generalize d abdominal pain Generalize d abdominal pain Disease Active 04-30 00:00: 00 [facility] Fever, unspecifie d fever cause Fever, unspecifie d fever cause Disease Active 04-30 00:00: 00 [facility] COVID-19 COVID-19 Disease Active 2025-0 8-17 00:00: 00 [facility] Prostate nodule Prostate nodule Disease Active 8-17 00:00: 00 [facility] Hospital discharge follow-up Hospital discharge follow-up Disease Active 205 00:00: 00 [facility] Ng - Externa l Left inguinal hernia Left inguinal hernia Disease Active 205 00:00: 00 [facility] Ng - Externa l Bilateral renal cysts Bilateral renal cysts Disease Active 2023-09 00:00: 00 [facility] Riveraold - Externa l Liver hemangioma Liver hemangioma [...] 32.0 to 32.9 in adult Disease Active 4 00:00: 00 [facility] Riveraold - Externa [...] Spondylosi s of lumbar spine Disease Active 1-23 00:00: 00 [facility] Espinosa Externa l Epigastric pain Epigastric pain Disease Active 1- 00:00: 00 [facility] SBO (small bowel obstructio n) SBO (small bowel obstructio n) Disease Active 2 00:00: 00 [facility] Obesity (BMI 30-39.9) Obesity (BMI 30-39.9) Disease Active 16 00:00: 00 [facility] No known active problems No known active problems Disease [facility] [id number] Bladder mass Problem [facility] [id number] Microscopi c hematuria Problem [facility] [id number] Suprapubic pain Problem [facility] [id number] Lower urinary tract symptoms Problem [facility] Allergies, Adverse Reactions, Alerts Allergy Name Allergy Type Status Severity Reaction(s) Onset Date Inactive Date Treating Clinician Comments Source bee venom protein (honey bee) DA Active SV THROAT SWELL 2022-09 1- 00:00: 00 [facility] Bee Venom Propensi ty to adverse reaction s Active Swelling 10-30 00:00: 00 [facility] rea BEE VENOM PROTEIN (HONEY BEE) DRUG INGREDI Active Swelling 10-30 00:00: 00 [facility] No Known Allergie s DA Active U 8-06 00:00: 00 [facility] NO KNOWN ALLERGIE S Drug Class Active [facility] Social History Social Habit Start [...] (event) 2022-11-28 00:00:00 2022-12-08 23:50:00 Not sure [facility] Tobacco use and exposure 2022-10-11 00:00:00 2022-10-11 00:00:00 Smokeless tobacco non-user [facility] Sex 2022-09-11 16:00:01 2022-09-11 16:00:01 Male (finding) [facility] Ng - Lan Sex assigned at 1970 00:00:00 1970 00:00:00 [facility] [place] Smoking Status Start Date Stop Date Source Ex-smoker 2024-03-30 00:00:00 2024-03-30 00:00:00 [facility] [place] Occasional tobacco smoker 2023-05-20 00:00:00 [facility] Maria [place] Never smoked tobacco [facility] Unknown if ever smoked [facility] Medications Ordered Medication Name Filled Medication Name Start Date Stop Date Current Medication? Ordering Clinician Indication Dosage Frequency Signature (SIG) Comments Components Source iopamidol (ISOVUE 370-500 mL) injection 90 mL 04-30 17:45: 00 04-30 18:00 :00 No [id number] 90mL 90 mL, Intravenou s, ONCE, 1 dose, On 04/30/25 at 1300, Routine [facility] acetaminoph en (TYLENOL) tablet 1,000 mg 04-30 16:30: 00 04-30 16:57 :00 No 1000mg 1,000 mg, Oral, ONCE, 1 dose, On Thu04/30/25 at 1130, Routine [facility] nirmatrelvi r-ritonavir (PAXLOVID) 300 mg (150 mg x 2)-100 mg tablet 04-30 00:00: 00 Yes [id number] 3{tbl} Take 3 tablets by mouth in the morning and 3 tablets in the evening. [facility] NaCl 0.9% (NS) bolus infusion 1,000 mL 04-07 03:45: 00 04-07 04:07 :00 No 1000mL at 999 mL/hr, 1,000 mL, IV Infusion, ONCE, 1 dose, On Thu04/06/25 at 2245, STAT [facility] NaCl 0.9% (NS) bolus infusion 1,000 mL 04-07 03:15: 00 04-07 03:12 :00 No 1000mL at 999 mL/hr, 1,000 mL, IV Infusion, ONCE, 1 dose, On Thu04/06/25 at 2215, STAT [facility] NaCl 0.9% (NS) bolus infusion 1,000 mL 04-07 01:45: 00 04-07 03:12 :00 No 1000mL at 999 mL/hr, 1,000 mL, IV Infusion, ONCE, 1 dose, On Thu04/06/25 at 2045, STAT [facility] ketorolac (TORADOL) injection 30 mg 04-07 00:45: 00 04-07 00:47 :00 No 30mg 30 mg, Slow IV Push, ONCE, 1 dose, On Carrie 04/06/25 at 1945, VASILIY [facility] Lisinopril 10 MG oral Tablet 10-31 00:00: 00 Yes [id number] 10mg QD Take 1 tablet (10 mg total) by mouth daily. [facility] Seybold - Externa l Pancrelipas e, Lip-Prot-Am yl, (Creon) [address]-[address] units [address] Particles 2-05 00:00: 00 Yes [id number] 1{capsu le} Take 1 capsule by mouth 3 times daily (with meals). [facility] Maria rea Tizanidine HCl 2 MG oral Tablet 2-05 00:00: 00 Yes [id number] 2mg QD Take 1 tablet (2 mg total) by mouth daily as needed for muscle spasms. [facility] re[facility] ketorolac (TORADOL) injection 15 mg 06-08 01:00: 00 06-08 00:42 :00 No 15mg 15 mg, Slow IV Push, ONCE, 1 dose, On Thu06/07/24 at 2000, Routine [facility] HYDROcodone -acetaminop hen (NORCO 5) tablet 1 tablet 06-08 00:15: 00 06-08 00:41 :00 No 1{tbl} 1 tablet, Oral, ONCE, 1 dose, On Thu06/07/24 at 1915, VASILIY [facility] aspirin chewable tablet 324 mg 06-07 23:30: 00 06-07 22:42 :00 No 324mg 324 mg, Oral, ONCE, 1 dose, On Thu06/07/24 at 1830, Routine [facility] NaCl 0.9% (NS) bolus infusion 1,000 mL 06-07 22:45: 00 06-08 00:45 :00 No 1000mL at 999 mL/hr, 1,000 mL, IV Infusion, ONCE, 1 dose, On Thu06/07/24 at 1745, VASILIY [facility] nitroglycer in (NITROSTAT) sublingual tablet 0.4 mg 06-07 21:58: 38 Yes .4mg 0.4 mg, Sublingual , Q5MIN PRN, 3 doses, Starting on Thu06/07/24 at 1658, Until Discontinu ed, VASILIY, Chest pain [facility] diclofenac 50 mg tablet 06-07 00:00: 00 06-18 04:59 :00 No [id number] 50mg Take 1 tablet by mouth in the morning and 1 tablet at noon and 1 tablet in the evening. Do all this for 10 days. [facility] acetaminoph en-codeine 300-30 mg tablet 06-07 00:00: 00 06-13 04:59 :00 No [id number] 1{tbl} Take 1 tablet by mouth every 6 (six) hours as needed for Pain (scale 7-10) for up to 5 days. Indication s: acute pain [facility] Lisinopril 10 MG oral Tablet 05-09 00:00: 00 Yes [id number] 10mg QD Take 1 tablet (10 mg total) by mouth daily. [facility] re[facility] Alprazolam (Xanax) 0.25 MG oral Tablet 04-11 00:00: 00 07-20 00:00 :00 No [id number] 107 Take 1 table 45 mins before MRI and 1 tablet just before MRI. [facility] re[facility] diphenhydrA MINE:lidoca ine 2% viscous:maa lox 1:1:1 (FIRST-MOUT [facility]) oral suspension 15 mL 04-02 16:30: 00 04-02 15:34 :00 No 15mL 15 mL, Oral (Swish & Swallow), ONCE, 1 dose, On 04/02/24 at 1130, Routine [facility] famotidine (PEPCID (PF)) injection 20 mg 04-02 15:30: 00 04-02 15:34 :00 No 20mg 20 mg, Slow IV Push, ONCE, 1 dose, On 04/02/24 at 1030, VASILIY [facility] NaCl 0.9% (NS) bolus infusion 2,000 mL 04-02 15:15: 00 04-02 17:55 :00 No 2000mL at 999 mL/hr, 2,000 mL, IV Infusion, ONCE, 1 dose, On 04/02/24 at 1015, STAT [facility] ondansetron (ZOFRAN (PF)) injection 4 mg 04-02 15:15: 00 04-02 14:27 :00 No 4mg 4 mg, Slow IV Push, ONCE, 1 dose, On 04/02/24 at 1015, VASILIY [facility] iopamidol (ISOVUE 370-500 mL) injection 90 mL 04-02 14:45: 00 04-02 15:00 :00 No [id number] 90mL 90 mL, Intravenou s, ONCE, 1 dose, On 04/02/24 at 1000, Routine [facility] morpHINE (4 mg/mL) injection 4 mg 04-02 14:15: 00 04-02 14:27 :00 No 4mg 4 mg, Slow IV Push, ONCE, 1 dose, On 04/02/24 at 0915, STAT [facility] sucralfate 1 gram tablet 04-02 00:00: 00 Yes [id number] 1g Take 1 tablet by mouth before meals and at bedtime. [facility] Sod Picosulfate -Mag Ox-Cit Acd (Clenpiq) 10-3.5-12 MG-GM -GM/175ML oral Solution 03-30 00:00: 00 Yes [id number] Instructio ns provided to patient. Follow instructio ns provided by provider.. [facility] Omeprazole 40 MG oral Delayed Release Capsule 03-30 00:00: 00 Yes [id number] 40mg QD Take 1 capsule (40 mg total) by mouth daily. [facility] NaCl 0.9% (NS) bolus infusion 1,000 mL 02-20 03:45: 00 02-20 04:50 :00 No 1000mL at 999 mL/hr, 1,000 mL, IV Infusion, ONCE, 1 dose, On 02/20/24 at 2245, VASILIY [facility] FENTanyl PF (SUBLIMAZE (PF)) injection 50 mcg 02-20 03:00: 00 02-20 03:07 :00 No 50ug 50 mcg, Slow IV Push, ONCE, 1 dose, On 02/20/24 at 2200, Routine [facility] metoclopram jerilyn HCl (REGLAN) injection 10 mg 02-20 03:00: 00 02-20 03:07 :00 No 10mg 10 mg, Slow IV Push, ONCE, 1 dose, On 02/20/24 at 2200, VASILIY [facility] bisacodyL (DULCOLAX) tablet 5 mg 02-20 03:00: 00 02-20 03:07 :00 No 5mg 5 mg, Oral, ONCE NOW, 1 dose, On 02/20/24 at 2200, Routine [facility] bisacodyL (DULCOLAX, BISACODYL,) 5 mg EC tablet 02-19 00:00: 00 Yes [id number] 5mg Take 1 tablet by mouth once daily as needed for Constipati on. [facility] dicyclomine 20 mg tablet 02-19 00:00: 00 Yes [id number] 20mg Take 1 tablet by mouth 4 (four) times daily as needed for Abdominal pain. [facility] Ketorolac Tromethamin e 10 MG oral Tablet 12-16 15:16: 47 12-16 00:00 :00 No 10mg Q.25D Take 1 tablet (10 mg total) by mouth every 6 hours as needed for pain FOR PAIN. [facility] Externerwin l Cyclobenzap rine HCl 10 MG oral Tablet 12-16 00:00: 00 10-19 00:00 :00 No [id number] 10mg QD Take 1 tablet (10 mg total) by mouth nightly as needed for muscle spasms. [facility] Espin[facility] Externerwin l HYDROcodone -acetaminop hen (NORCO) 10-325 mg tablet 1 tablet 12-09 04:45: 00 12-09 03:57 :00 No 1{tbl} 1 tablet, Oral, ONCE NOW, 1 dose, On 12/09/23 at 2345, Routine [facility] iopamidol (ISOVUE 370-500 mL) injection 100 mL 12-09 03:30: 00 12-09 03:30 :00 No [id number] 100mL 100 mL, Intravenou s, ONCE, 1 dose, On Thu12/09/23 at 2230, Routine [facility] ketorolac (TORADOL) injection 30 mg 12-09 03:00: 00 12-09 02:04 :00 No 30mg 30 mg, Slow IV Push, ONCE, 1 dose, On Thu12/09/23 at 2200, Routine [facility] Methocarbam ol 750 MG oral Tablet 12-09 00:00: 00 12-16 00:00 :00 No 750mg Q.25D Take 1 tablet (750 mg total) by mouth every 6 hours as needed FOR PAIN. [facility] ketorolac 10 mg tablet 12-08 00:00: 00 Yes [id number] 10mg Take 1 tablet by mouth every 6 (six) hours as needed for Pain (scale 7-10). [facility] methocarbam oL 750 mg tablet 12-08 00:00: 00 Yes [id number] 750mg Take 1 tablet by mouth every 6 (six) hours as needed for Pain (scale 7-10) (MUSCLE SPASM). [facility] Ketorolac Tromethamin e (TORADOL IM) 12-05 00:00: 00 12-16 00:00 :00 No Luz Maria era Lisinopril 10 MG oral Tablet 10-06 14:45: 28 10-06 00:00 :00 No 10mg Take 1 tablet (10 mg total) by mouth daily. [facility] rea Gabapentin 300 MG oral Capsule 10-06 00:00: 00 Yes [id number] 300mg Q.5D Take 1 capsule (300 mg total) by mouth 2 times daily as needed. [facility] Lisinopril 10 MG oral Tablet 10-06 00:00: 00 Yes [id number] 10mg QD Take 1 tablet (10 mg total) by mouth daily. [facility] Amlodipine Besylate 10 MG oral Tablet 10-06 00:00: 00 Yes [id number] 10mg QD Take 1 tablet (10 mg total) by mouth daily. [facility] re[facility] Famotidine (PEPCID) 20 MG oral tablet 10-06 00:00: 00 Yes [id number] 20mg Q.5D Take 1 tablet (20 mg total) by mouth 2 times daily. [facility] Pancrelipas e, Lip-Prot-Am yl, (Creon) [address]-[address] Particles 10-06 00:00: 00 10-19 00:00 :00 No [id number] 1{capsu le} Take 1 capsule by mouth 3 times daily (with meals). [facility] Pantoprazol e Sodium 20 MG oral Tablet Delayed Response 10-06 00:00: 00 03-30 00:00 :00 No [id number] 20mg Take 1 tablet (20 mg total) by mouth every morning. [facility] HYDROcodone -acetaminop hen (NORCO) 10-325 mg tablet 1 tablet 2022-09 06:45: 00 08-04 05:38 :00 No 1{tbl} 1 tablet, Oral, ONCE NOW, 1 dose, On Thu08/04/23 at 0045, VASILIY [facility] methocarbam oL (ROBAXIN) tablet 1,000 mg 2022-09 05:45: 00 08-04 05:38 :00 No 1000mg 1,000 mg, Oral, ONCE, 1 dose, On Thu08/03/23 at 2345, VASILIY [facility] FENTanyl PF (SUBLIMAZE (PF)) injection 75 mcg 2022-09 05:00: 00 08-04 04:14 :00 No 75ug 75 mcg, Slow IV Push, ONCE, 1 dose, On Thu08/03/23 at 2300, Routine [facility] NaCl 0.9% (NS) IV infusion 1,000 mL 2022-09 04:45: 00 08-04 05:39 :00 No 1000mL at 999 mL/hr, Intravenou s, ONCE, 1 dose, On 08/03/23 at 2245, Routine [facility] methocarbam oL 500 mg tablet 2022-09 00:00: 00 Yes [id number] 500mg Take 1 tablet by mouth every 6 (six) hours as needed (MUSCLE SPASM). [facility] HYDROcodone -acetaminop hen (NORCO) 10-325 mg tablet 2022-09 00:00: 00 08-11 05:59 :00 No [id number] 1{tbl} Take 1 tablet by mouth every 6 (six) hours as needed for Pain (scale 7-10) for up to 7 days. Indication s: acute pain [facility] diphenhydrA MINE (BENADRYL) injection 25 mg 2022-09 19:30: 00 07-25 18:34 :00 No 25mg 25 mg, Slow IV Push, ONCE, 1 dose, On 07/25/23 at 1330, STAT [facility] metoclopram jerilyn HCl (REGLAN) injection 10 mg 2022-09 19:30: 00 07-25 18:34 :00 No 10mg 10 mg, Slow IV Push, ONCE, 1 dose, On 07/25/23 at 1330, VASILIY [facility] morpHINE (4 mg/mL) injection 4 mg 2022-09 17:30: 00 07-25 16:43 :00 No 4mg 4 mg, Slow IV Push, ONCE, 1 dose, On 07/25/23 at 1130, STAT [facility] ondansetron (ZOFRAN (PF)) injection 4 mg 2022-09 17:15: 00 07-25 16:43 :00 No 4mg 4 mg, Slow IV Push, ONCE, 1 dose, On 07/25/23 at 1115, VASILIY [facility] NaCl 0.9% (NS) bolus infusion 1,000 mL 2022-09 17:15: 00 07-25 18:54 :00 No 1000mL at 999 mL/hr, 1,000 mL, IV Infusion, ONCE, 1 dose, On 07/25/23 at 1115, STAT [facility] metoclopram jerilyn HCl 10 mg tablet 2022-09 00:00: 00 Yes [id number] 10mg Take 1 tablet by mouth every 6 (six) hours. [facility] sodium chloride (NS) injection 5 mL 2022-09 19:45: 30 Yes 5mL 5 mL, Intravenou s, PRN, Starting on Thu07/24/23 at 1345, Until Discontinu ed, Routine, IV line flushing [facility] dicyclomine 20 mg tablet 2022-09 00:00: 00 02-19 00:00 :00 No [id number] 20mg Take 1 tablet by mouth 4 (four) times daily as needed for Abdominal pain. [facility] ketorolac (TORADOL) injection 15 mg 2022-09 03:15: 00 07-12 02:32 :00 No 15mg 15 mg, Slow IV Push, ONCE, 1 dose, On 07/11/23 at 2215, Routine [facility] methocarbam oL (ROBAXIN) tablet 1,000 mg 2022-09 02:30: 00 07-12 02:32 :00 No 1000mg 1,000 mg, Oral, ONCE, 1 dose, On 07/11/23 at 2130, VASILIY [facility] famotidine (PEPCID (PF)) injection 20 mg 2022-09 02:30: 00 07-12 02:32 :00 No 20mg 20 mg, Slow IV Push, ONCE, 1 dose, On 07/11/23 at 2130, VASILIY [facility] aspirin chewable tablet 324 mg 2022-09 02:15: 00 07-12 02:31 :00 No 324mg 324 mg, Oral, ONCE, 1 dose, On 07/11/23 at 2115, STAT [facility] HYDROcodone -acetaminop hen 5-325 mg tablet 2022-0928 00:00: 00 07-15 04:59 :00 No [id number] 1{tbl} Take 1 tablet by mouth every 4 (four) hours as needed for Pain (scale 7-10) for up to 3 days. Indication s: acute pain [facility] omeprazole 40 mg capsule 2022-09 00:00: 00 Yes [id number] 40mg Take 1 capsule by mouth in the morning and 1 capsule in the evening. [facility] peg-electro lyte soln 236-22.74-6 .74 -5.86 gram solution 2022-09 00:00: 00 Yes [id number] Take as directed before colonoscop y [facility] Lisinopril 10 MG oral Tablet [...] ONCE, 1 dose, On Thu07/03/23 at 0845, [facility] famotidine (PEPCID (PF)) injection 20 mg 2022-09 13:00: 00 07-03 12:49 :00 No 20mg 20 mg, Slow IV Push, ONCE, 1 dose, On Thu07/03/23 at 0800, [facility] iohexol (OMNIPAQUE 350 BULK-100 mL) injection 80 mL 2022-09 10:40: 00 07-03 10:40 :00 No [id number] 80mL 80 mL, Intravenou s, ONCE, 1 dose, On Thu07/03/23 at 0545, Routine [facility] ondansetron (ZOFRAN (PF)) injection 4 mg 2022-09 0 10:15: 00 07-03 10:20 :00 No 4mg 4 mg, Slow IV Push, ONCE, 1 dose, On Thu07/03/23 at 0515, VASILIY [facility] morpHINE (4 mg/mL) injection 4 mg 2022-09 10:15: 00 07-03 10:20 :00 No 4mg 4 mg, Slow IV Push, ONCE, 1 dose, On Thu07/03/23 at 0515, STAT [facility] HYDROcodone -acetaminop hen 5-325 mg tablet 2022-09 00:00: 00 Yes [id number] 1{tbl} Take 1 tablet by mouth every 4 (four) hours as needed for Pain (scale 4-6) for up to 10 doses. Indication s: acute pain [facility] Pantoprazol e Sodium 20 MG oral Tablet Delayed Response 2022-09 00:00: 00 10-06 00:00 :00 No 20mg Take 1 tablet (20 mg total) by mouth every morning. [facility] famotidine (PEPCID) 20 mg tablet 2022-09 00:00: 00 07-10 00:00 :00 No [id number] 20mg Take 1 tablet by mouth in the morning and 1 tablet in the evening. [facility] Lisinopril 10 MG oral Tablet [...] 05-08 03:15: 00 05-08 02:12 :00 No [id number] 80mL 80 mL, Intravenou s, ONCE, 1 dose, On Thu05/07/23 at 2215, Routine [facility] morpHINE (4 mg/mL) injection 4 [...] mL, IV Infusion, ONCE, 1 dose, On [facility] 05/02/23 at 0015, [facility] famotidine (PEPCID (PF)) injection 20 mg 05-02 04:15: 00 05-02 04:21 :00 No 20mg 20 mg, Slow IV Push, ONCE, 1 dose, On Thu05/01/23 at 2315, [facility] maalox:diph enhydrAMINE :lidocaine 2 % viscous 1:1:1 (FIRST-MOUT [facility]) oral suspension 15 mL 05-02 04:15: 00 05-02 04:21 :00 No 15mL 15 mL, Oral, ONCE, 1 dose, On Thu05/01/23 at 2315, [facility] ondansetron (ZOFRAN (PF)) injection 4 mg 05-02 04:15: 00 05-02 03:18 :00 No 4mg 4 mg, Slow IV Push, ONCE, 1 dose, On Thu05/01/23 at 2315, [facility] NaCl 0.9% (NS) bolus infusion 1,000 mL 05-02 04:15: 00 05-02 04:15 :00 No 1000mL at 999 mL/hr, 1,000 mL, IV Infusion, ONCE, 1 dose, On Thu05/01/23 at 2315, STAT [facility] metoclopram jerilyn HCl 10 mg tablet 05-01 00:00: 00 Yes [id number] 10mg Take 1 tablet by mouth every 6 (six) hours. [facility] pantoprazol e (PROTONIX) 20 mg EC tablet 05-01 00:00: 00 07-03 00:00 :00 No [id number] 20mg Take 1 tablet by mouth in the morning. [facility] iopamidol (ISOVUE 370-500 mL) injection 70 mL 04-22 16:21: 00 04-22 16:21 :00 No [id number] 70mL 70 mL, Intravenou s, ONCE, 1 dose, On Thu04/22/23 at 1145, Routine [facility] haloperidol lactate (HALDOL) injection 2.5 mg 04-22 16:00: 00 04-22 16:01 :00 No 2.5mg 2.5 mg, Intravenou s, ONCE, 1 dose, On Thu04/22/23 at 1100, STAT [facility] NaCl 0.9% (NS) bolus infusion 500 mL 04-22 14:45: 00 04-22 15:30 :00 No 500mL at 999 mL/hr, 500 mL, IV Infusion, ONCE, 1 dose, On Thu04/22/23 at 0945, STAT [facility] maalox:diph enhydrAMINE :lidocaine 2 % viscous 1:1:1 (FIRST-MOUT HWASH BLM) oral suspension 15 mL 04-22 13:00: 00 04-22 12:55 :00 No 15mL 15 mL, Oral, ONCE, 1 dose, On Thu04/22/23 at 0800, Routine [facility] NaCl 0.9% (NS) IV infusion 1,000 mL 04-22 12:45: 00 Yes 1000mL at 999 mL/hr, Intravenou s, CONTINUOUS , Starting on 8/9/23 at 0745, Until Discontinu ed, Routine [facility] NaCl 0.9% (NS) bolus infusion 1,000 mL 04-22 10:30: 00 04-22 11:30 :00 No 1000mL at 999 mL/hr, 1,000 mL, IV Infusion, ONCE, 1 dose, On Thu04/22/23 at 0530, STAT [facility] ketorolac (TORADOL) injection 30 mg 04-22 10:30: 00 04-22 09:21 :00 No 30mg 30 mg, Slow IV Push, ONCE, 1 dose, On Thu04/22/23 at 0530, Routine [facility] diphenhydrA MINE (BENADRYL) injection 25 mg 04-22 09:30: 00 04-22 09:21 :00 No 25mg 25 mg, Slow IV Push, ONCE, 1 dose, On Thu04/22/23 at 0430, STAT [facility] metoclopram jerilyn HCl (REGLAN) injection 10 mg 04-22 09:30: 00 04-22 09:21 :00 No 10mg 10 mg, Slow IV Push, ONCE, 1 dose, On Thu04/22/23 at 0430, VASILIY [facility] NaCl 0.9% (NS) bolus infusion 1,000 mL 04-22 09:15: 00 04-22 10:28 :00 No 1000mL at 999 mL/hr, 1,000 mL, IV Infusion, ONCE, 1 dose, On Thu04/22/23 at 0415, STAT [facility] ondansetron (ZOFRAN) 4 mg tablet 04-22 00:00: 00 Yes [id number] 05 4mg Take 1 tablet by mouth every 8 (eight) hours as needed for Nausea and Vomiting (N/V). [facility] proMETHazin e 25 mg tablet 04-22 00:00: 00 Yes [id number] 25mg Take 1 tablet by mouth every 6 (six) hours as needed for Nausea and Vomiting (N/V) or N/V unresponsi ve to Ondansetro n. [facility] Tramadol HCl (ULTRAM) 50 MG oral Tablet 04-22 00:00: 00 10-06 00:00 :00 No 50mg Q.25D Take 1 tablet (50 mg total) by mouth every 6 hours as needed FOR PAIN. Luz Maria Riveraold - Externa l lipase-prot ease-amylas e (CREON) 12,000-38,0 00 -60,000 unit capsule 2 capsule 04-16 14:15: 00 Yes 2{capsu le} 2 capsule, Oral, ONCE, 1 dose, On Carrie 04/16/23 at 0915, Routine [facility] famotidine (PEPCID (PF)) injection 20 mg 04-16 13:30: 00 04-16 12:33 :00 No 20mg 20 mg, Slow IV Push, ONCE NOW, 1 dose, On Carrie 04/16/23 at 0830, VASILIY [facility] dicyclomine (BENTYL) injection 20 mg 04-16 13:30: 00 04-16 12:34 :00 No 20mg 20 mg, Intramuscu lar, ONCE NOW, 1 dose, On Thu04/16/23 at 0830, Routine [facility] enalaprilat (VASOTEC I.V.) injection 1.25 mg 04-16 13:15: 00 04-16 13:17 :00 No 1.25mg 1.25 mg, Slow IV Push, ONCE, 1 dose, On Carrie 04/16/23 at 0815, STAT [facility] lactulose (CEPHULAC) solution 45 mL 04-16 13:15: 00 04-16 13:18 :00 No 45mL 45 mL, Oral, ONCE, 1 dose, On Carrie 04/16/23 at 0815, VASILIY [facility] ketorolac (TORADOL) injection 30 mg 04-16 13:15: 00 04-16 12:32 :00 No 30mg 30 mg, Slow IV Push, ONCE NOW, 1 dose, On Thu04/16/23 at 0815, VASILIY [facility] NaCl 0.9% (NS) bolus infusion 1,000 mL 04-16 13:15: 00 04-16 13:54 :00 No 1000mL at 999 mL/hr, 1,000 mL, IV Piggyback, ONCE, 1 dose, On Thu04/16/23 at 0815, STAT [facility] lipase-prot ease-amylas e (CREON) 3,000-9,500 - 15,000 unit capsule 04-16 00:00: 00 Yes [id number] 3000U Take 1 capsule by mouth in the morning and 1 capsule at noon and 1 capsule in the evening. Take with meals. [facility] hyoscyamine sulfate (LEVSIN/SL) 0.125 mg sublingual tablet 04-16 00:00: [id number] 2 tablets under the tongue every 6 (six) hours as needed (Abdominal pain or cramping). [facility] bisacodyL 5 mg EC tablet 04-16 00:00: 00 Yes [id number] 5mg Take 1 tablet by mouth once daily as needed for Constipati on. [facility] Famotidine (PEPCID) 20 MG oral tablet 04-16 00:00: 00 10-06 00:00 :00 No 20mg Take 1 tablet (20 mg total) by mouth 2 times daily. Luz Maria rea Lorazepam 1 MG oral Tablet 04-05 00:00: 00 10-06 00:00 :00 No 1mg [id number] 3D Take 1 tablet (1 mg total) by mouth every 8 hours as needed. Luz Maria rea iopamidol (ISOVUE 370-500 mL) injection 100 mL 04-01 07:45: 00 04-01 06:58 :00 No [id number] 100mL 100 mL, Intravenou s, ONCE, 1 dose, On Thu04/01/23 at 0245, Routine [facility] famotidine (PEPCID (PF)) injection 20 [...] Until Discontinu ed, Routine, IV line flushing [facility] ondansetron 4 mg disintegrat ing tablet 04-01 00:00: 00 Yes [id number] 4mg Take 1 tablet by mouth every 8 (eight) hours as needed for Nausea and Vomiting (N/V). [facility] traMADoL 50 mg tablet 04-01 00:00: 00 04-09 04:59 :00 No [id number] 50mg Take 1 tablet by mouth every 8 (eight) hours as needed for Pain (scale 4-6) for up to 7 days. Indication s: acute pain [facility] predniSONE (DELTASONE) tablet 40 mg [...] 12-09 06:15: 00 12-09 06:15 :00 No [id number] 100mL 100 mL, Intravenou s, ONCE, 1 dose, On Thu12/09/22 at 0115, Routine [facility] ketorolac (TORADOL) injection 30 mg [...] ONCE, 1 dose, On Thu12/09/22 at 0030, [facility] traMADoL 50 mg tablet 12-09 00:00: 00 Yes [id number] 50mg Take 1 tablet by mouth every 6 (six) hours as needed (pain). Indication s: acute pain [facility] ondansetron 4 mg tablet 12-09 00:00: 00 Yes [id number] 1-2 tablets every 8 hours as needed for nausea [facility] predniSONE 20 mg tablet 12-09 00:00: 00 12-17 04:59 :00 No [id number] 40mg Take 2 tablets by mouth in the morning for 7 days. [facility] iopamidol (ISOVUE 370-500 mL) injection 100 mL 11-25 06:15: 00 11-25 06:15 :00 No [id number] 100mL 100 mL, Intravenou s, ONCE, 1 dose, On Thu11/25/22 at 0115, Routine [facility] NaCl 0.9% (NS) bolus infusion 1,000 mL 11-25 06:00: 00 11-25 07:00 :00 No 1000mL at 999 mL/hr, 1,000 mL, IV Infusion, ONCE, 1 dose, On Thu11/25/22 at 0100, STAT [facility] FENTanyl PF (SUBLIMAZE (PF)) injection 50 mcg 11-25 05:45: 00 11-25 05:03 :00 No 50ug 50 mcg, Slow IV Push, ONCE, 1 dose, On Thu11/25/22 at 0045, Routine [facility] ondansetron (ZOFRAN (PF)) injection 4 mg 11-25 05:00: 00 11-25 05:04 :00 No 4mg 4 mg, Slow IV Push, ONCE, 1 dose, On Thu11/25/22 at 0000, VASILIY [facility] Pancrelipas e, Lip-Prot-Am yl, (Creon) [address]491 units oral Cap DR Particles 1-30 00:00: 00 10-06 00:00 :00 No Luz Maria Ng - [place] rea lipase-prot ease-amylas e (CREON) 12,000-38,0 00 -60,000 unit capsule 2 capsule 10-12 23:00: 00 Yes 2{capsu le} 2 capsule, Oral, TID MEALS, First dose on 10/12/22 at 1700, Until Discontinu ed, Routine [facility] lisinopriL 10 mg tablet 10-12 17:56: 15 Yes 10mg Take 10 mg by mouth in the morning. [facility] meloxicam (MOBIC) tablet 7.5 mg 10-12 17:15: 00 Yes 7.5mg 7.5 mg, Oral, DAILY, First dose on 10/12/22 at 1115, Until Discontinu ed, Routine [facility] omeprazole (PRILOSEC) capsule 20 mg 10-12 15:00: 00 Yes 20mg 20 mg, Oral, DAILY, First dose on 10/12/22 at 0900, Until Discontinu ed, Routine [facility] Pantoprazol e Sodium 40 MG oral Tablet Delayed Response 10-12 00:00: 00 10-06 00:00 :00 No Luz Maria Wallace l lipase-prot ease-amylas e 12,000-38,0 00 -60,000 unit capsule 10-12 00:00: 00 01-11 04:59 :00 No [id number] 2{capsu le} Take 2 capsules by mouth in the morning and 2 capsules at noon and 2 capsules in the evening. Take with meals. Do all this for 90 days. Do not crush or chew. [facility] meloxicam 7.5 mg tablet 10-12 00:00: 00 10-27 05:59 :00 No [id number] 7.5mg Take 1 tablet by mouth once daily as needed for Pain (scale 7-10) for up to 14 days. [facility] HYDROcodone -acetaminop hen 5-325 mg [...] 10/13/22 at 1334, Routine, Pain (scale 4-6) [facility] acetaminoph en (TYLENOL) tablet 650 mg 10-11 19:35: 16 Yes 650mg 650 mg, Oral, Q6HPRN, Starting on 10/11/22 at 1335, Until Discontinu ed, Routine, Pain (scale 1-3) [facility] NaCl 0.9% (NS) bolus infusion 1,000 mL 10-11 16:45: 00 10-11 16:02 :00 No 1000mL at 999 mL/hr, 1,000 mL, Intravenou s, ONCE, 1 dose, On 10/11/22 at 1045, STAT [facility] ondansetron (ZOFRAN (PF)) injection 4 mg 10-11 16:15: 00 10-11 16:15 :00 No 4mg 4 mg, Slow IV Push, ONCE, 1 dose, On 10/11/22 at 1015, VASILIY [facility] morpHINE (4 mg/mL) injection 4 mg 10-11 16:15: 00 10-11 16:14 :00 No 4mg 4 mg, Slow IV Push, ONCE, 1 dose, On 10/11/22 at 1015, STAT [facility] iopamidol (ISOVUE 370-500 mL) injection 120 mL 10-11 15:45: 00 10-11 14:43 :00 No [id number] 120mL 120 mL, Intravenou s, ONCE, 1 dose, On 10/11/22 at 0945, Routine [facility] FENTanyl PF (SUBLIMAZE (PF)) injection 50 mcg 10-09 08:30: 00 10-09 07:23 :00 No 50ug 50 mcg, Slow IV Push, ONCE, 1 dose, On [place] 10/09/22 at 0230, Routine [facility] iopamidol (ISOVUE 370-500 mL) injection 100 mL 10-09 07:15: 00 10-09 07:15 :00 No [id number] 100mL 100 mL, Intravenou s, ONCE, 1 dose, On [place] 10/09/22 at 0115, Routine [facility] ketorolac (TORADOL) injection 30 mg 10-09 06:15: 00 10-09 05:25 :00 No 30mg 30 mg, Slow IV Push, ONCE, 1 dose, On [place] 10/09/22 at 0015, Routine [facility] ondansetron (ZOFRAN) 4 mg tablet 10-09 00:00: 00 Yes [id number] 4mg Take 1 tablet by mouth every 8 (eight) hours as needed for Nausea and Vomiting (N/V). [facility] traMADoL (ULTRAM) 50 mg tablet 10-09 00:00: 00 Yes [id number] 50mg Take 1 tablet by mouth every 6 (six) hours as needed for Pain (scale 7-10). Indication s: acute pain [facility] ketorolac (TORADOL) injection 30 mg 2021-09 17:15: 00 08-20 16:35 :00 No 30mg 30 mg, Intramuscu lar, ONCE, 1 dose, On Thu08/20/22 at 1115, [facility] Amlodipine Besylate 10 MG oral [...] 370-500 mL) injection 60 mL 06-09 13:07: 06-09 13:08 :00 No [id number] 60mL 60 mL, Intravenou s, ONCE, 1 dose, On Thu06/09/22 at 0815, Routine [facility] ondansetron (ZOFRAN (PF)) injection 4 mg 06-09 12:30: 00 06-09 12:54 :00 No 4mg 4 mg, Slow IV Push, ONCE, 1 dose, On Thu06/09/22 at 0730, [facility] dexamethaso ne sod phos PF injection 10 mg 06-09 12:30: 00 06-09 12:55 :00 No 10mg 10 mg, Slow IV Push, ONCE, 1 dose, On Thu06/09/22 at 0730, 1 mL [facility] traMADoL 50 mg tablet 06-09 00:00: 00 10-11 00:00 :00 No [id number] 50mg Take 1 tablet by mouth every 6 (six) hours as needed (pain). Indication s: acute pain [facility] lidocaine 5 % (700 mg/patch) patch 06-09 00:00: 00 10-11 00:00 :00 No [id number] Apply one patch to most painful area up to 12 hours a day as needed for pain. PHARMACIST : dispense one box [facility] predniSONE 20 mg tablet 06-09 00:00: 00 06-17 04:59 :00 No [id number] 40mg Take 2 tablets by mouth in the morning for 7 days. [facility] Dose Unknown 02-03 00:00: 00 No Dose Unknown 02-03 00:00: 00 No lisinopriL (PRINIVIL,Z ESTRIL) tablet 20 mg 11-01 03:00: 00 Yes 20mg 20 mg, Oral, QHS, First dose (after last modificati on) on Carrie 10/31/21 at 2100, Until Discontinu ed, Routine [facility] lisinopriL 20 mg tablet 11-01 00:00: 00 12-02 04:59 :00 No [id number] 20mg Take 1 tablet by mouth at bedtime for 30 days. [facility] lactated ringers IV infusion 1,000 mL 10-31 19:00: 00 Yes 1000mL at 75 mL/hr, 1,000 mL, IV Infusion, CONTINUOUS , Starting on Carrie 10/31/21 at 1300, Until Discontinu ed, Routine [facility] amLODIPine (NORVASC) tablet 10 mg 10-31 15:00: 00 Yes 10mg 10 mg, Oral, DAILY, First dose on Carrie 10/31/21 at 0900, Until Discontinu ed, Routine [facility] enoxaparin (LOVENOX) injection 40 mg 10-31 15:00: 00 Yes 40mg 40 mg, Subcutaneo us, DAILY, First dose on Carrie 10/31/21 at 0900, Until Discontinu ed, [facility] [...] Thu11/01/21 at 1842, Routine, Pain (scale 4-6) [facility] acetaminoph en (TYLENOL) tablet 650 mg 10-31 00:43: 22 Yes 650mg 650 mg, Oral, Q6HPRN, Starting on Thu10/30/21 at 1843, Until Discontinu ed, Routine, Pain (scale 1-3) [facility] ondansetron (ZOFRAN (PF)) injection 4 mg 10-30 21:15: 00 10-30 20:28 :00 No 4mg 4 mg, Slow IV Push, ONCE, 1 dose, On Thu10/30/21 at 1515, VASILIY [facility] morpHINE injection 4 mg 10-30 21:15: 00 10-30 20:29 :00 No 4mg 4 mg, Slow IV Push, ONCE, 1 dose, On Thu10/30/21 at 1515, STAT [facility] NaCl 0.9% (NS) bolus infusion 1,000 mL 10-30 21:15: 00 10-30 20:29 :00 No 1000mL at 999 mL/hr, 1,000 mL, IV Infusion, ONCE, 1 dose, On Thu10/30/21 at 1515, VASILIY [facility] iopamidol (ISOVUE 370-500 mL) injection 100 mL 10-30 20:37: 00 10-30 20:35 :00 No [id number] 100mL 100 mL, Intravenou s, ONCE, 1 dose, On Thu10/30/21 at 1445, Routine [facility] lisinopril 10 mg tablet 2 00:00: 00 [...] IV Piggyback, ONCE, 1 dose, [facility] 05/23/21 at 2245, [facility] NaCl 0.9% (NS) bolus infusion 1,000 mL 05-24 03:00: 00 05-24 03:00 :00 No 1000mL at 999 mL/hr, 1,000 mL, IV Piggyback, ONCE, 1 dose, [place] 05/23/21 at 2200, STAT [facility] NaCl 0.9% (NS) bolus infusion 500 mL 05-23 03:15: 00 05-23 15:14 :00 No 500mL at 999 mL/hr, 500 mL, IV Piggyback, ONCE, 1 dose, [facility] 05/22/21 at 2215, STAT [facility] dexamethaso ne (DECADRON PHOSPHATE) injection 10 mg 04-02 03:30: 00 04-02 02:47 :00 No 10mg 10 mg, Intramuscu lar, ONCE, 1 dose, 04/01/21 at 2230, STAT [facility] ketorolac (TORADOL) injection 60 mg 03-18 04:00: 00 03-18 02:56 :00 No 60mg 60 mg, Intramuscu lar, ONCE, 1 dose, 03/17/21 at 2300, VASILIY
Fa culty member approving Restricted medication : EMERGENCY ROOM, [facility] ibuprofen 800 mg tablet 03-17 00:00: 00 05-23 00:00 :00 No [id number] 800mg Take 1 tablet by mouth every 8 (eight) hours as needed for Pain (scale 4-6). [facility] acetaminoph en-codeine 300-30 mg tablet 03-17 00:00: 00 03-25 04:59 :00 No [id number] 1{tbl} Take 1 tablet by mouth every 6 (six) hours as needed for Pain (scale 7-10) for up to 7 days. Indication s: acute pain [facility] benzonatate (TESSALON PERLES) capsule 200 mg 11-15 05:00: 00 11-15 04:51 :00 No 200mg 200 mg, Oral, ONCE, 1 dose, Thu11/14/20 at 2300, Routine [facility] Dose Unknown 3- 00:00: 00 No Dose Unknown 3-03 00:00: 00 No benzonatate 100 mg capsule 3-03 00:00: 00 05-23 00:00 :00 No [id number] 100mg Take 1 capsule by mouth 3 (three) times daily as needed for Cough. [facility] diphenhydrA MINE (BENADRYL) injection 25 mg 09-30 16:00: 00 09-30 15:17 :00 No 25mg 25 mg, Slow IV Push, ONCE, 1 dose, [place] 09/30/20 at 1000, STAT [facility] metoclopram jerilyn HCl (REGLAN) injection 10 mg 09-30 16:00: 00 09-30 15:17 :00 No 10mg 10 mg, Slow IV Push, ONCE, 1 dose, 09/30/20 at 1000, VASILIY [facility] NaCl 0.9% (NS) bolus infusion 1,000 mL 09-30 15:00: 00 09-30 16:45 :00 No 1000mL at 999 mL/hr, 1,000 mL, IV Infusion, ONCE, 1 dose[facility] 10 mg tablet 09-30 00:00: 00 Yes [id number] 10mg Take 1 tablet by mouth daily. [facility] lisinopriL 10 mg tablet 09-30 00:00: 00 11-01 00:00 :00 No [id number] 10mg Take 1 tablet by mouth at bedtime. [facility] Dose Unknown 2019-09 0 00:00: 00 No Dose Unknown 2019-09 0 00:00: 00 No maalox:diph enhydrAMINE :lidocaine 2 % viscous 1:1:1 (FIRST-MOUT HWASH BLM) oral suspension 15 mL 2019-09 03:30: 00 07-02 03:30 :00 No 15mL 15 mL, Oral, ONCE, 1 dose, 07/01/20 at 2230, VASILIY [facility] sodium chloride (NS) injection 5 mL 2019-09 03:00: 48 Yes 5mL 5 mL, Intravenou s, PRN, Starting 07/01/20 at 2200, Until Discontinu ed, Routine, IV line flushing [facility] sucralfate 1 gram tablet 2019-09 00:00: 00 07-16 05:59 :00 No [id number] 1g Take 1 tablet by mouth before meals and at bedtime for 14 days. [facility] lisinopril 10 mg tablet 04-12 00:00: 00 No 1mg amlodipine 10 mg tablet 04-12 00:00: 00 No 1mg No known medications No Un veronica [facility] Immunizations Ordered Immunization Name Filled Immunization Name Date Status Comments Source SARS-COV-2 COVID-19 PFIZER VACCINE 2021-05-07 00:00:00 Completed [facility] SARS-COV-2 COVID-19 PFIZER VACCINE 2021-05-07 00:00:00 Completed [facility] SARS-COV-2 COVID-19 PFIZER VACCINE 2021-05-07 00:00:00 Completed [facility] SARS-COV-2 COVID-19 PFIZER VACCINE 2021-05-07 00:00:00 Completed [facility] SARS-COV-2 COVID-19 PFIZER VACCINE 2021-05-07 00:00:00 Completed [facility] SARS-COV-2 COVID-19 PFIZER VACCINE 2021-05-07 00:00:00 Completed [facility] SARS-COV-2 COVID-19 PFIZER VACCINE 2021-05-07 00:00:00 Completed [facility] SARS-COV-2 COVID-19 PFIZER VACCINE 2021-05-07 00:00:00 Completed [facility] SARS-COV-2 COVID-19 PFIZER VACCINE 2021-05-07 00:00:00 Completed [facility] SARS-COV-2 COVID-19 PFIZER VACCINE 2021-05-07 00:00:00 Completed [facility] SARS-COV-2 COVID-19 PFIZER VACCINE 2021-05-07 00:00:00 Completed [facility] SARS-COV-2 COVID-19 PFIZER VACCINE 2021-05-07 00:00:00 Completed [facility] SARS-COV-2 COVID-19 PFIZER VACCINE 2021-05-07 00:00:00 Completed [facility] SARS-COV-2 COVID-19 PFIZER VACCINE 2021-05-07 00:00:00 Completed [facility] SARS-COV-2 COVID-19 PFIZER VACCINE 2021-05-07 00:00:00 Completed [facility] SARS-COV-2 COVID-19 PFIZER VACCINE 2021-05-07 00:00:00 Completed [facility] SARS-COV-2 COVID-19 PFIZER VACCINE 2021-05-07 00:00:00 Completed [facility] SARS-COV-2 COVID-19 PFIZER VACCINE 2021-05-07 00:00:00 Completed [facility] SARS-COV-2 COVID-19 PFIZER VACCINE 2021-05-07 00:00:00 Completed [facility] SARS-COV-2 COVID-19 PFIZER VACCINE 2021-05-07 00:00:00 Completed [facility] SARS-COV-2 COVID-19 PFIZER VACCINE 2021-05-07 00:00:00 Completed [facility] SARS-COV-2 COVID-19 PFIZER VACCINE 2021-05-07 00:00:00 Completed [facility] SARS-COV-2 COVID-19 PFIZER VACCINE 2021-05-07 00:00:00 Completed [facility] SARS-COV-2 COVID-19 PFIZER VACCINE Unknown Completed [facility] SARS-COV-2 COVID-19 PFIZER VACCINE Unknown Completed [facility] SARS-COV-2 COVID-19 PFIZER VACCINE Unknown Completed [facility] SARS-COV-2 COVID-19 PFIZER VACCINE Unknown Completed [facility] SARS-COV-2 COVID-19 PFIZER VACCINE Unknown Completed [facility] SARS-COV-2 COVID-19 PFIZER VACCINE Unknown Completed [facility] SARS-COV-2 COVID-19 PFIZER VACCINE Unknown Completed [facility] SARS-COV-2 COVID-19 PFIZER VACCINE Unknown Completed [facility] SARS-COV-2 COVID-19 PFIZER VACCINE Unknown Completed [facility] SARS-COV-2 COVID-19 PFIZER VACCINE Unknown Completed [facility] SARS-COV-2 COVID-19 PFIZER VACCINE Unknown Completed [facility] SARS-COV-2 COVID-19 PFIZER VACCINE Unknown Completed [facility] SARS-COV-2 COVID-19 PFIZER VACCINE Unknown Completed [facility] SARS-COV-2 COVID-19 PFIZER VACCINE Unknown Completed [facility] SARS-COV-2 COVID-19 PFIZER VACCINE Unknown Completed [facility] SARS-COV-2 COVID-19 PFIZER VACCINE Unknown Completed [facility] SARS-COV-2 COVID-19 PFIZER VACCINE Unknown Completed [facility] SARS-COV-2 COVID-19 PFIZER VACCINE Unknown Completed [facility] SARS-COV-2 COVID-19 PFIZER VACCINE Unknown Completed [facility] SARS-COV-2 COVID-19 PFIZER VACCINE Unknown Completed [facility] SARS-COV-2 COVID-19 PFIZER VACCINE Unknown Completed [facility] Vital Signs Vital Name Observation Time Observation Value Comments S ource Systolic blood pressure 2025-04-30 19:19:43 121 mm[Hg] [facility] Diastolic blood pressure 2025-04-30 19:19:43 77 mm[Hg] [facility] Heart rate 2025-04-30 19:19:43 83 /min Unive [facility] Body temperature 2025-04-30 19:19:43 37.39 Cindi [facility] Respiratory rate 2025-04-30 19:19:43 16 /min [facility] Oxygen saturation in Arterial blood by Pulse oximetry 2025-04-30 19:19:43 96 /min [facility] Body height 2025-04-30 16:00:00 177.8 cm [facility] Body weight 2025-04-30 16:00:00 124.739 kg [facility] BMI 2025-04-30 16:00:00 39.46 kg/m2 [facility] Systolic blood pressure 2025-04-07 04:00:00 151 mm[Hg] [facility] Diastolic blood pressure 2025-04-07 04:00:00 80 mm[Hg] [facility] Heart rate 2025-04-07 04:00:00 74 /min [facility] Levellande [facility] Body temperature 2025-04-07 04:00:00 36.72 Cindi [facility] Respiratory rate 2025-04-07 04:00:00 18 /min [facility] Oxygen saturation in Arterial blood by Pulse oximetry 2025-04-07 04:00:00 97 /min [facility] Body height 2025-04-07 00:09:00 195.6 cm [facility] Body weight 2025-04-07 00:09:00 124.739 kg [facility] BMI 2025-04-07 00:09:00 32.61 kg/m2 [facility] Systolic blood pressure 2025-01-02 13:35:00 156 mm[Hg] Luz Maria Seybo ld - External Diastolic blood pressure 2025-01-02 13:35:00 94 mm[Hg] Luz Maria Seybo ld - External Heart rate 2025-01-02 13:32:00 77 /min Kelse y Seybold - External Body temperature 2025-01-02 [...] oximetry 2025-01-02 13:32:00 96 /min Luz Maria Seybo ld - External Systolic blood pressure 2024 15:47:00 122 mm[Hg] Luz Maria Seybo ld - External Diastolic blood pressure 2024 15:47:00 84 mm[Hg] Luz Maria Seybo ld - External Heart rate 2024 15:47:00 89 /min Kelse y Seybold - External Body temperature 2024 [...] oximetry 2024 15:47:00 97 /min Luz Maria Seybo ld - External Heart rate 2024-06-08 00:59:00 80 /min [facility] Respiratory rate 2024-06-08 00:59:00 15 /min [facility] Oxygen saturation in Arterial blood by Pulse oximetry 2024-06-08 00:59:00 97 /min [facility] Systolic blood pressure 2024-06-08 00:30:00 149 mm[Hg] [facility] Diastolic blood pressure 2024-06-08 00:30:00 98 mm[Hg] [facility] Body temperature 2024-06-07 21:55:00 36.5 Cindi [facility] Body height 2024-06-07 21:55:00 195.6 cm [facility] Body weight 2024-06-07 21:55:00 121.11 kg [facility] BMI 2024-06-07 21:55:00 31.66 kg/m2 [facility] Systolic blood pressure 2024-04-08 21:13:00 143 mm[Hg] Luz Maria Seybo ld - External Diastolic blood pressure 2024-04-08 21:13:00 87 mm[Hg] Luz Maria ybo ld - External Heart rate 2024-04-08 21:13:00 79 /min Kelse y Seybold - External Body temperature 2024-04-08 21:13:00 36.78 Cindi Luz Maria Seybold - External Respiratory rate 2024-04-08 21:13:00 16 /min Luz Maria Ingramybold - External Body height 2024-04-08 21:13:00 195.6 cm Kelsi ey Seybold - External Body weight 2024-04-08 21:13:00 118.389 kg Kelsi ey Seybold - External BMI 2024-04-08 21:13:00 30.95 kg/m2 Kelsi ey Seybold - External Oxygen saturation in Arterial blood by Pulse oximetry 2024-04-08 21:13:00 100 /min Luz Maria Ingramybo ld - External Systolic blood pressure 2024-04-02 17:52:00 140 mm[Hg] [facility] Diastolic blood pressure 2024-04-02 17:52:00 93 mm[Hg] [facility] Heart rate 2024-04-02 17:52:00 80 /min Unive [facility] Body temperature 2024-04-02 17:52:00 37 Cindi [facility] Respiratory rate 2024-04-02 17:52:00 20 /min [facility] Oxygen saturation in Arterial blood by Pulse oximetry 2024-04-02 17:52:00 98 /min [facility] Body height 2024-04-02 13:32:00 195.6 cm [facility] 2024-04-02 13:32:00 120.3 kg [facility] BMI 2024-04-02 13:32:00 31.45 kg/m2 [facility] Systolic blood pressure 2024-03-30 13:10:00 119 mm[Hg] [...] Systolic blood pressure 2024-02-21 04:48:00 132 mm[Hg] [facility] Diastolic blood pressure 2024-02-21 04:48:00 82 mm[Hg] [facility] Heart rate 2024-02-21 04:48:00 74 /min Unive [facility] Body temperature 2024-02-21 04:48:00 36.72 Cindi [facility] Respiratory rate 2024-02-21 04:48:00 15 /min [facility] Oxygen saturation in Arterial blood by Pulse oximetry 2024-02-21 04:48:00 98 /min [facility] Body height 2024-02-21 02:43:00 195.6 cm [facility] Body weight 2024-02-21 02:43:00 115.667 kg [facility] BMI 2024-02-21 02:43:00 30.24 kg/m2 [facility] Systolic blood pressure 2023-12-17 20:32:00 112 mm[Hg] Luz Maria Seybo ld - External Diastolic blood pressure 2023-12-17 20:32:00 80 mm[Hg] Luz Maria Ingramybo ld - External Heart rate 2023-12-17 20:07:00 96 /min Sallie armas Seybold - External Body temperature 2023-12-17 20:07:00 [...] Systolic blood pressure 2023-12-10 03:57:00 157 mm[Hg] [facility] Diastolic blood pressure 2023-12-10 03:57:00 83 mm[Hg] [facility] Heart rate 2023-12-10 03:57:00 70 /min [facility] Respiratory rate 2023-12-10 03:57:00 16 /min [facility] Oxygen saturation in Arterial blood by Pulse oximetry 2023-12-10 03:57:00 99 /min [facility] Body temperature 2023-12-10 01:12:00 36.83 Cindi [facility] Body height 2023-12-10 01:12:00 195.6 cm [facility] Body weight 2023-12-10 01:12:00 122.471 kg [facility] BMI 2023-12-10 01:12:00 32.02 kg/m2 [facility] Systolic blood pressure 2023-10-06 20:55:00 130 mm[Hg] Luz Maria Seybo ld - External Diastolic blood pressure 2023-10-06 20:55:00 80 mm[Hg] Luz Maria Seybo ld - External Heart rate 2023-10-06 20:14:00 98 /min Sallie y Seybold - External Body temperature 2023-10-06 [...] Systolic blood pressure 2023-08-04 05:38:00 164 mm[Hg] [facility] Diastolic blood pressure 2023-08-04 05:38:00 99 mm[Hg] [facility] Heart rate 2023-08-04 05:38:00 70 /min [facility] Body temperature 2023-08-04 05:38:00 37 Cindi [facility] Respiratory rate 2023-08-04 05:38:00 18 /min [facility] Oxygen saturation in Arterial blood by Pulse oximetry 2023-08-04 05:38:00 98 /min [facility] Body height 2023-08-04 02:22:00 195.6 cm [facility] Body weight 2023-08-04 02:22:00 118.389 kg [facility] BMI 2023-08-04 02:22:00 30.95 kg/m2 [facility] Systolic blood pressure 2023-07-25 18:00:00 146 mm[Hg] [facility] Diastolic blood pressure 2023-07-25 18:00:00 90 mm[Hg] [facility] Heart rate 2023-07-25 18:00:00 75 /min Unive [facility] Respiratory rate 2023-07-25 18:00:00 18 /min [facility] Oxygen saturation in Arterial blood by Pulse oximetry 2023-07-25 18:00:00 95 /min [facility] Body temperature 2023-07-25 15:57:00 37.61 Cindi [facility] Body height 2023-07-25 15:57:00 195.6 cm [facility] Body weight 2023-07-25 15:57:00 118.842 kg [facility] BMI 2023-07-25 15:57:00 31.07 kg/m2 [facility] Systolic blood pressure 2023-07-24 21:05:00 140 mm[Hg] [facility] Diastolic blood pressure 2023-07-24 21:05:00 94 mm[Hg] [facility] Heart rate 2023-07-24 21:05:00 71 /min [facility] Body temperature 2023-07-24 21:05:00 36.67 Cindi [facility] Respiratory rate 2023-07-24 21:05:00 18 /min [facility] Oxygen saturation in Arterial blood by Pulse oximetry 2023-07-24 21:05:00 97 /min [facility] Body weight 2023-07-24 18:35:00 115.667 kg [facility] BMI 2023-07-24 18:35:00 30.24 kg/m2 [facility] Systolic blood pressure 2023-07-12 03:30:00 156 mm[Hg] [facility] Diastolic blood pressure 2023-07-12 03:30:00 101 mm[Hg] [facility] Heart rate 2023-07-12 03:30:00 90 /min [facility] Respiratory rate 2023-07-12 03:30:00 20 /min [facility] Oxygen saturation in Arterial blood by Pulse oximetry 2023-07-12 03:30:00 94 /min [facility] Body temperature 2023-07-12 01:57:00 36.67 Cindi [facility] Body weight 2023-07-12 01:57:00 115.667 kg [facility] BMI 2023-07-12 01:57:00 30.24 kg/m2 [facility] Systolic blood pressure 2023-07-10 13:34:00 140 mm[Hg] [facility] Diastolic blood pressure 2023-07-10 13:34:00 95 mm[Hg] [facility] Heart rate 2023-07-10 13:34:00 76 /min [facility] Body temperature 2023-07-10 13:34:00 35.94 Cindi [facility] Body height 2023-07-10 13:34:00 195.6 cm [facility] Body weight 2023-07-10 13:34:00 118.298 kg [facility] BMI 2023-07-10 13:34:00 30.93 kg/m2 [facility] Oxygen saturation in Arterial blood by Pulse oximetry 2023-07-10 13:34:00 97 /min [facility] Systolic blood pressure 2023-07-08 13:43:00 [...] Systolic blood pressure 2023-07-03 12:45:10 149 mm[Hg] [facility] Diastolic blood pressure 2023-07-03 12:45:10 88 mm[Hg] [facility] Heart rate 2023-07-03 12:45:10 88 /min [facility] Respiratory rate 2023-07-03 12:45:10 16 /min [facility] Oxygen saturation in Arterial blood by Pulse oximetry 2023-07-03 12:45:10 97 /min [facility] Body temperature 2023-07-03 09:47:00 36.78 Cindi [facility] Body height 2023-07-03 09:47:00 195.6 cm [facility] Body weight 2023-07-03 09:47:00 113.853 kg [facility] BMI 2023-07-03 09:47:00 29.76 kg/m2 [facility] Systolic blood pressure 2023-05-20 20:08:00 132 mm[Hg] [...] Systolic blood pressure 2023-05-08 03:30:00 133 mm[Hg] [facility] Diastolic blood pressure 2023-05-08 03:30:00 87 mm[Hg] [facility] Heart rate 2023-05-08 03:30:00 70 /min Unive [facility] Respiratory rate 2023-05-08 03:30:00 18 /min [facility] Oxygen saturation in Arterial blood by Pulse oximetry 2023-05-08 03:30:00 97 /min [facility] Body temperature 2023-05-07 22:36:00 36.72 Cindi [facility] Body weight 2023-05-07 22:36:00 113.853 kg [facility] BMI 2023-05-07 22:36:00 30.55 kg/m2 [facility] Systolic blood pressure 2023-05-02 05:00:00 134 mm[Hg] [facility] Diastolic blood pressure 2023-05-02 05:00:00 85 mm[Hg] [facility] Heart rate 2023-05-02 05:00:00 72 /min Unive [facility] Oxygen saturation in Arterial blood by Pulse oximetry 2023-05-02 05:00:00 98 /min [facility] Body temperature 2023-05-02 02:28:00 37.28 Cindi [facility] Respiratory rate 2023-05-02 02:28:00 20 /min [facility] Body height 2023-05-02 02:28:00 193 cm [facility] Body weight 2023-05-02 02:28:00 113.399 kg [facility] BMI 2023-05-02 02:28:00 30.43 kg/m2 [facility] Systolic blood pressure 2023-04-22 18:02:36 130 mm[Hg] [facility] Diastolic blood pressure 2023-04-22 18:02:36 80 mm[Hg] [facility] Heart rate 2023-04-22 18:02:36 68 /min Unive [facility] Body temperature 2023-04-22 18:02:36 36.78 Cindi [facility] Respiratory rate 2023-04-22 18:02:36 17 /min [facility] Oxygen saturation in Arterial blood by Pulse oximetry 2023-04-22 18:02:36 96 /min [facility] Body height 2023-04-22 08:58:00 195.6 cm [facility] Body weight 2023-04-22 08:58:00 113.944 kg [facility] BMI 2023-04-22 08:58:00 29.79 kg/m2 [facility] Systolic blood pressure 2023-04-16 13:30:00 142 mm[Hg] [facility] Diastolic blood pressure 2023-04-16 13:30:00 98 mm[Hg] [facility] Heart rate 2023-04-16 13:30:00 65 /min Unive [facility] Respiratory rate 2023-04-16 13:30:00 17 /min [facility] Oxygen saturation in Arterial blood by Pulse oximetry 2023-04-16 13:30:00 98 /min [facility] Systolic blood pressure 2023-04-16 12:32:00 155 mm[Hg] [facility] Diastolic blood pressure 2023-04-16 12:32:00 108 mm[Hg] [facility] Heart rate 2023-04-16 12:32:00 61 /min [facility] Respiratory rate 2023-04-16 12:32:00 18 /min [facility] Oxygen saturation in Arterial blood by Pulse oximetry 2023-04-16 12:32:00 97 /min [facility] Body temperature 2023-04-16 12:09:00 36.72 Cindi [facility] Body weight 2023-04-16 12:09:00 118.842 kg [facility] BMI 2023-04-16 12:09:00 31.89 kg/m2 [facility] Systolic blood pressure 2023-04-01 08:00:00 130 mm[Hg] [facility] Diastolic blood pressure 2023-04-01 08:00:00 75 mm[Hg] [facility] Heart rate 2023-04-01 08:00:00 75 /min [facility] Respiratory rate 2023-04-01 08:00:00 19 /min [facility] Oxygen saturation in Arterial blood by Pulse oximetry 2023-04-01 08:00:00 96 /min [facility] Body temperature 2023-04-01 05:02:00 36.28 Cindi [facility] Body height 2023-04-01 05:02:00 193 cm [facility] Body weight 2023-04-01 05:02:00 111.585 kg [facility] BMI 2023-04-01 05:02:00 29.94 kg/m2 [facility] Systolic blood pressure 2023-02-13 21:00:00 157 mm[Hg] [facility] Diastolic blood pressure 2023-02-13 21:00:00 89 mm[Hg] [facility] Heart rate 2023-02-13 21:00:00 102 /min Unive [facility] Body temperature 2023-02-13 21:00:00 37.89 Cindi [facility] Respiratory rate 2023-02-13 21:00:00 16 /min [facility] Body weight 2023-02-13 21:00:00 124.286 kg [facility] BMI 2023-02-13 21:00:00 33.35 kg/m2 [facility] Oxygen saturation in Arterial blood by Pulse oximetry 2023-02-13 21:00:00 97 /min [facility] Systolic blood pressure 2022-12-09 06:33:00 152 mm[Hg] [facility] Diastolic blood pressure 2022-12-09 06:33:00 96 mm[Hg] [facility] Heart rate 2022-12-09 06:33:00 60 /min Unive [facility] Respiratory rate 2022-12-09 06:33:00 11 /min [facility] Oxygen saturation in Arterial blood by Pulse oximetry 2022-12-09 06:33:00 96 /min [facility] Body temperature 2022-12-09 04:51:00 37 Cindi [facility] Body height 2022-12-09 04:51:00 193 cm [facility] Body weight 2022-12-09 04:51:00 116.121 kg [facility] BMI 2022-12-09 04:51:00 31.16 kg/m2 [facility] Systolic blood pressure 2022-11-25 04:51:00 148 mm[Hg] [facility] Diastolic blood pressure 2022-11-25 04:51:00 96 mm[Hg] [facility] Heart rate 2022-11-25 04:51:00 71 /min Unive [facility] Body temperature 2022-11-25 04:51:00 37 Cindi [facility] Respiratory rate 2022-11-25 04:51:00 16 /min [facility] Body height 2022-11-25 04:51:00 193 cm Univ [facility] Body weight 2022-11-25 04:51:00 113.399 kg Univ [facility] BMI 2022-11-25 04:51:00 30.43 kg/m2 [facility] Oxygen saturation in Arterial blood by Pulse oximetry 2022-11-25 04:51:00 97 /min [facility] Systolic blood pressure 2022-10-12 21:48:00 152 mm[Hg] [facility] Diastolic blood pressure 2022-10-12 21:48:00 82 mm[Hg] [facility] Heart rate 2022-10-12 21:48:00 70 /min [facility] Body temperature 2022-10-12 21:48:00 36.89 Cindi [facility] Respiratory rate 2022-10-12 21:48:00 18 /min [facility] Oxygen saturation in Arterial blood by Pulse oximetry 2022-10-12 21:48:00 94 /min [facility] Body height 2022-10-11 17:50:00 193 cm [facility] Body weight 2022-10-11 17:50:00 113.399 kg [facility] BMI 2022-10-11 17:50:00 30.43 kg/m2 [facility] Systolic blood pressure 2022-10-09 07:25:23 138 mm[Hg] [facility] Diastolic blood pressure 2022-10-09 07:25:23 86 mm[Hg] [facility] Heart rate 2022-10-09 07:25:23 73 /min Unive [facility] Respiratory rate 2022-10-09 07:25:23 20 /min [facility] Oxygen saturation in Arterial blood by Pulse oximetry 2022-10-09 07:25:23 98 /min [facility] Body temperature 2022-10-09 04:12:00 37.28 Cindi [facility] Body height 2022-10-09 04:12:00 193 cm [facility] Body weight 2022-10-09 04:12:00 113.399 kg [facility] BMI 2022-10-09 04:12:00 30.43 kg/m2 [facility] Systolic blood pressure 2022-08-20 14:40:00 147 mm[Hg] [facility] Diastolic blood pressure 2022-08-20 14:40:00 95 mm[Hg] [facility] Heart rate 2022-08-20 14:40:00 75 /min Unive [facility] Body temperature 2022-08-20 14:40:00 36.89 Cindi [facility] Respiratory rate 2022-08-20 14:40:00 20 /min [facility] Body height 2022-08-20 14:40:00 190.5 cm [facility] Body weight 2022-08-20 14:40:00 115.667 kg [facility] BMI 2022-08-20 14:40:00 31.87 kg/m2 [facility] Oxygen saturation in Arterial blood by Pulse oximetry 2022-08-20 14:40:00 98 /min [facility] height 2022-07-11 09:30:00 77 [in_i] Commo n [facility] weight 2022-07-11 09:30:00 253.6 [lb_av] Co mmon [facility] temperature 2022-07-11 09:30:00 98.3 [degF] Com mon [facility] bmi 2022-07-11 09:30:00 30.07 kg/m2 Comm on [facility] oximetry 2022-07-11 09:30:00 99 % Commo n [facility] respiratory rate 2022-07-11 09:30:00 18 /min Common [facility] blood pressure systolic 2022-07-11 09:30:00 135 mm[Hg] [facility] blood pressure diastolic 2022-07-11 09:30:00 81 mm[Hg] [facility] Systolic blood pressure 2022-06-09 15:00:00 141 mm[Hg] [facility] Diastolic blood pressure 2022-06-09 15:00:00 94 mm[Hg] [facility] Heart rate 2022-06-09 15:00:00 59 /min Unive [facility] Respiratory rate 2022-06-09 15:00:00 16 /min [facility] Oxygen saturation in Arterial blood by Pulse oximetry 2022-06-09 15:00:00 97 /min [facility] Body temperature 2022-06-09 11:56:00 36.17 [facility] Body height 2022-06-09 11:56:00 195.6 cm [facility] Body weight 2022-06-09 11:56:00 127.007 kg [facility] BMI 2022-06-09 11:56:00 33.20 kg/m2 [facility] Systolic blood pressure 2021-11-01 17:12:00 152 mm[Hg] [facility] Diastolic blood pressure 2021-11-01 17:12:00 89 mm[Hg] [facility] Heart rate 2021-11-01 17:12:00 72 /min [facility] Body temperature 2021-11-01 17:12:00 36.17 Cindi [facility] Respiratory rate 2021-11-01 17:12:00 18 /min [facility] Oxygen saturation in Arterial blood by Pulse oximetry 2021-11-01 17:12:00 94 /min [facility] Body height 2021-10-30 23:19:00 195.6 cm [facility] Body weight 2021-10-30 23:19:00 116.983 kg [facility] BMI 2021-10-30 23:19:00 30.58 kg/m2 [facility] Systolic blood pressure 2021-05-24 06:00:00 135 mm[Hg] [facility] Diastolic blood pressure 2021-05-24 06:00:00 97 mm[Hg] [facility] Heart rate 2021-05-24 06:00:00 88 /min Unive [facility] Respiratory rate 2021-05-24 06:00:00 21 /min [facility] Oxygen saturation in Arterial blood by Pulse oximetry 2021-05-24 06:00:00 94 /min [facility] Body temperature 2021-05-24 01:47:00 37.28 Cindi [facility] Body height 2021-05-24 01:47:00 195.6 cm [facility] Body weight 2021-05-24 01:47:00 127.461 kg [facility] BMI 2021-05-24 01:47:00 33.32 kg/m2 [facility] Systolic blood pressure 2021-05-22 23:36:00 154 mm[Hg] [facility] Diastolic blood pressure 2021-05-22 23:36:00 112 mm[Hg] [facility] Heart rate 2021-05-22 23:36:00 97 /min [facility] 2021-05-22 23:36:00 36 Cindi [facility] Respiratory rate 2021-05-22 23:36:00 19 /min [facility] Body height 2021-05-22 23:36:00 195.6 cm [facility] Body weight 2021-05-22 23:36:00 127.007 kg [facility] BMI 2021-05-22 23:36:00 33.20 kg/m2 [facility] Oxygen saturation in Arterial blood by Pulse oximetry 2021-05-22 23:36:00 96 /min [facility] Systolic blood pressure 2021-05-02 00:01:00 157 mm[Hg] [facility] Diastolic blood pressure 2021-05-02 00:01:00 93 mm[Hg] [facility] Heart rate 2021-05-02 00:01:00 84 /min Unive [facility] Body temperature 2021-05-02 00:01:00 36.56 Cindi [facility] Respiratory rate 2021-05-02 00:01:00 18 /min [facility] Body weight 2021-05-02 00:01:00 126.554 kg [facility] BMI 2021-05-02 00:01:00 33.08 kg/m2 [facility] Oxygen saturation in Arterial blood by Pulse oximetry 2021-05-02 00:01:00 97 /min [facility] Systolic blood pressure 2021-04-02 01:01:00 144 mm[Hg] [facility] Diastolic blood pressure 2021-04-02 01:01:00 94 mm[Hg] [facility] Heart rate 2021-04-02 01:01:00 89 /min Unive [facility] Body temperature 2021-04-02 01:01:00 37.06 Cindi [facility] Respiratory rate 2021-04-02 01:01:00 18 /min [facility] Body weight 2021-04-02 01:01:00 129.729 kg [facility] BMI 2021-04-02 01:01:00 33.91 kg/m2 [facility] Oxygen saturation in Arterial blood by Pulse oximetry 2021-04-02 01:01:00 100 /min [facility] Systolic blood pressure 2021-04-02 01:01:00 144 mm[Hg] [facility] Diastolic blood pressure 2021-04-02 01:01:00 94 mm[Hg] [facility] Heart rate 2021-04-02 01:01:00 89 /min Unive [facility] Body temperature 2021-04-02 01:01:00 37.06 Cindi [facility] Respiratory rate 2021-04-02 01:01:00 18 /min [facility] Body weight 2021-04-02 01:01:00 129.729 kg [facility] BMI 2021-04-02 01:01:00 33.91 kg/m2 [facility] Oxygen saturation in Arterial blood by Pulse oximetry 2021-04-02 01:01:00 100 /min [facility] Systolic blood pressure 2021-03-18 03:16:13 140 mm[Hg] [facility] Diastolic blood pressure 2021-03-18 03:16:13 80 mm[Hg] [facility] Heart rate 2021-03-18 03:16:13 80 /min Unive [facility] Body temperature 2021-03-18 03:16:13 36.67 Cindi [facility] Respiratory rate 2021-03-18 03:16:13 19 /min [facility] Oxygen saturation in Arterial blood by Pulse oximetry 2021-03-18 03:16:13 99 /min [facility] Body weight 2021-03-18 01:02:00 129.729 kg [facility] BMI 2021-03-18 01:02:00 33.91 kg/m2 [facility] Systolic blood pressure 2021-03-18 03:16:13 140 mm[Hg] [facility] Diastolic blood pressure 2021-03-18 03:16:13 80 mm[Hg] [facility] Heart rate 2021-03-18 03:16:13 80 /min [facility] Body temperature 2021-03-18 03:16:13 36.67 Cindi [facility] Respiratory rate 2021-03-18 03:16:13 19 /min [facility] Oxygen saturation in Arterial blood by Pulse oximetry 2021-03-18 03:16:13 99 /min [facility] Body weight 2021-03-18 01:02:00 129.729 kg [facility] BMI 2021-03-18 01:02:00 33.91 kg/m2 [facility] Oxygen saturation in Arterial blood by Pulse oximetry 2020-11-15 04:31:00 97 /min [facility] Systolic blood pressure 2020-11-15 03:25:00 173 mm[Hg] [facility] Diastolic blood pressure 2020-11-15 03:25:00 97 mm[Hg] [facility] Heart rate 2020-11-15 03:25:00 84 /min [facility] Body temperature 2020-11-15 03:25:00 36.67 Cindi [facility] Respiratory rate 2020-11-15 03:25:00 20 /min [facility] Body weight 2020-11-15 03:25:00 132.45 kg [facility] BMI 2020-11-15 03:25:00 34.63 kg/m2 [facility] Oxygen saturation in Arterial blood by Pulse oximetry 2020-11-15 04:31:00 97 /min [facility] Systolic blood pressure 2020-11-15 03:25:00 173 mm[Hg] [facility] Diastolic blood pressure 2020-11-15 03:25:00 97 mm[Hg] [facility] Heart rate 2020-11-15 03:25:00 84 /min [facility] Body temperature 2020-11-15 03:25:00 36.67 Cindi [facility] Respiratory rate 2020-11-15 03:25:00 20 /min [facility] Body weight 2020-11-15 03:25:00 132.45 kg [facility] BMI 2020-11-15 03:25:00 34.63 kg/m2 [facility] Systolic blood pressure 2020-09-30 16:30:00 121 mm[Hg] [facility] Diastolic blood pressure 2020-09-30 16:30:00 66 mm[Hg] [facility] Heart rate 2020-09-30 16:30:00 72 /min [facility] Respiratory rate 2020-09-30 16:30:00 19 /min [facility] Oxygen saturation in Arterial blood by Pulse oximetry 2020-09-30 16:30:00 94 /min [facility] Body weight 2020-09-30 14:20:00 136.079 kg [facility] BMI 2020-09-30 14:20:00 35.57 kg/m2 [facility] Body temperature 2020-09-30 14:10:00 37.06 Cindi [facility] Systolic blood pressure 2020-09-30 16:30:00 121 mm[Hg] [facility] Diastolic blood pressure 2020-09-30 16:30:00 66 mm[Hg] [facility] Heart rate 2020-09-30 16:30:00 72 /min Un[facility] Respiratory rate 2020-09-30 16:30:00 19 /min [facility] Oxygen saturation in Arterial blood by Pulse oximetry 2020-09-30 16:30:00 94 /min [facility] Body weight 2020-09-30 14:20:00 136.079 kg [facility] BMI 2020-09-30 14:20:00 35.57 kg/m2 [facility] Body temperature 2020-09-30 14:10:00 37.06 Cindi [facility] Systolic blood pressure 2020-07-02 04:00:00 132 mm[Hg] [facility] Diastolic blood pressure 2020-07-02 04:00:00 84 mm[Hg] [facility] Heart rate 2020-07-02 04:00:00 89 /min [facility] Oxygen saturation in Arterial blood by Pulse oximetry 2020-07-02 04:00:00 95 /min [facility] Body temperature 2020-07-02 02:53:00 36.94 Cindi [facility] Respiratory rate 2020-07-02 02:53:00 18 /min [facility] Body height 2020-07-02 02:53:00 195.6 cm [facility] Body weight 2020-07-02 02:53:00 136.079 kg [facility] BMI 2020-07-02 02:53:00 35.57 kg/m2 [facility] Systolic blood pressure 2020-07-02 04:00:00 132 mm[Hg] [facility] Diastolic blood pressure 2020-07-02 04:00:00 84 mm[Hg] [facility] Heart rate 2020-07-02 04:00:00 89 /min [facility] Oxygen saturation in Arterial blood by Pulse oximetry 2020-07-02 04:00:00 95 /min [facility] Body temperature 2020-07-02 02:53:00 36.94 Cindi [facility] Respiratory rate 2020-07-02 02:53:00 18 /min [facility] Body height 2020-07-02 02:53:00 195.6 cm [facility] Body weight 2020-07-02 02:53:00 136.079 kg [facility] BMI 2020-07-02 02:53:00 35.57 kg/m2 [facility] BP Systolic 2022-07-09 10:22:00 158 [...] Clinician Source CT ABDOMEN PELVIS W CONTRAST 2025-04-30 17:54:44 Augustine Wasserman [facility] LACTIC ACID WHOLE BLOOD 2025-04-30 17:07:00 Augustine Wasserman [facility] LIPASE 2025-04-30 17:06:00 Augustine Wasserman Un [facility] COMP. METABOLIC PANEL ([id number]) 2025-04-30 17:06:00 Augustine Wasserman [facility] CBC WITH DIFF 2025-04-30 17:06:00 [facility] 2025-04-30 17:06:00 Augustine Wasserman Un [facility] INFLUENZA A/B RSV COVID NAAT 2025-04-30 17:06:00 Augustine Wasserman [facility] US GALL BLADDER 2025-04-07 01:26:21 Lion Rodriguez [facility] CREATINE KINASE 2025-04-07 00:38:00 Lion Rodriguez [facility] LIPASE 2025-04-07 00:38:00 Lion Rodriguez [facility] MAGNESIUM 2025-04-07 00:38:00 Lion Rodriguez [facility] TROPONIN I 2025-04-07 00:38:00 Lion Rodriguez [facility] COMP. METABOLIC PANEL ([id number]) 2025-04-07 00:38:00 Lion Rodriguez [facility] SEDIMENTATION RATE 2025-04-07 00:38:00 Lion Rodriguez [facility] CBC WITH DIFF 2025-04-07 00:38:00 Lion Rodriguez [facility] URINALYSIS 2025-04-07 00:38:00 AzamLion [facility] EKG-12 LEAD 2024-06-08 00:53:38 Luke Clarke [facility] XR CHEST 2 VW 2024-06-07 22:33:08 Luke Clarke [facility] CREATINE KINASE 2024-06-07 22:26:00 Luke Clarke [facility] LIPASE 2024-06-07 22:26:00 Luke Clarke [facility] MAGNESIUM 2024-06-07 22:26:00 Luke Clarke [facility] TROPONIN I 2024-06-07 22:26:00 Luke Clarke [facility] COMP. METABOLIC PANEL ([id number]) 2024-06-07 22:26:00 Luke Clarke [facility] CBC WITH DIFF 2024-06-07 22:26:00 Luke Clarke [facility] D-DIMER 2024-06-07 22:26:00 Luke Clarke [facility] INFLUENZA A/B RSV COVID NAAT 2024-06-07 22:26:00 Mayte Clarkeshua [facility] N-TERMINAL PRO-BNP 2024-06-07 22:26:00 Luke Clarke [facility] CT ABDOMEN PELVIS W CONTRAST 2024-04-02 14:49:11 Trevor Taylor [facility] URINALYSIS 2024-04-02 14:18:00 Trevor Taylor [facility] LIPASE 2024-04-02 14:12:00 Trevor Taylor [facility] MAGNESIUM 2024-04-02 14:12:00 Trevor Taylor [facility] TROPONIN I 2024-04-02 14:12:00 [facility] COMP. METABOLIC PANEL ([id number]) 2024-04-02 14:12:00 Trevor Taylor [facility] LIPID PANEL ([id number])(TOTAL CHOLESTEROL, TRIGLYCERIDES, HDL) 2024-04-02 14:12:00 Trevor Taylor [facility] CBC WITH DIFF 2024-04-02 14:12:00 Trevor Taylor [facility] LIPASE 2024-02-21 03:08:00 Leti Rivas [facility] COMP. METABOLIC PANEL ([id number]) 2024-02-21 03:08:00 Leti Rivas [facility] CBC WITH DIFF 2024-02-21 03:08:00 Leti Rivas [facility] URINALYSIS 2024-02-21 03:08:00 Leti Rivas [facility] CT ABDOMEN PELVIS W CONTRAST 2023-12-10 02:36:24 Abraham Orantes [facility] COMP. METABOLIC PANEL ([id number]) 2023-12-10 02:05:00 Abraham Orantes [facility] CBC WITH DIFF 2023-12-10 02:05:00 Abraham Orantes [facility] URINALYSIS 2023-12-10 02:05:00 Abraham Orantes [facility] CT ABDOMEN PELVIS WO CONTRAST 2023-08-04 04:23:15 Abraham Orantes [facility] BASIC METABOLIC PANEL (NA, K, CL, CO2, GLUCOSE, BUN, CREATININE, CA) 2023-08-04 02:57:00 Abraham Orantes [facility] CBC WITH DIFF 2023-08-04 02:57:00 Abraham Orantes [facility] URINALYSIS 2023-08-04 02:57:00 Abraham Orantes [facility] NOTICE OF PRIVACY PRACTICES 2023-08-04 02:16:09 Doctor Unassigned, [place] [facility] CONSENT/REFUSAL FOR DIAGNOSIS AND TREATMENT 2023-08-04 02:15:41 Doctor Unassigned, [place] [facility] LIPASE 2023-07-25 16:37:00 Trevor Taylor [facility] MAGNESIUM 2023-07-25 16:37:00 Trevor [facility] TROPONIN I 2023-07-25 16:37:00 Trevor Taylor [facility] COMP. METABOLIC PANEL ([id number]) 2023-07-25 16:37:00 Trevor Taylor [facility] CBC WITH DIFF 2023-07-25 16:37:00 Trevor Taylor [facility] URINALYSIS 2023-07-25 16:37:00 Trevor Taylor [facility] CONSENT/REFUSAL FOR DIAGNOSIS AND TREATMENT 2023-07-25 15:41:41 Doctor Unassigned, [place] [facility] US GALL BLADDER 2023-07-24 22:46:02 Johnathan Avila [facility] URINALYSIS 2023-07-24 20:10:00 Johnathan Avila [facility] EXTRA TUBE URINE CULTURE 2023-07-24 20:10:00 Ember Avila [facility] LIPASE 2023-07-24 20:09:00 Johnathan Avila [facility] COMP. METABOLIC PANEL ([id number]) 2023-07-24 20:09:00 Johnathan Avila [facility] LIPID PANEL ([id number])(TOTAL CHOLESTEROL, TRIGLYCERIDES, HDL) 2023-07-24 20:09:00 Johnathan Avila [facility] CBC WITH DIFF 2023-07-24 20:09:00 Johnathan Avila [facility] CONSENT/REFUSAL FOR DIAGNOSIS AND TREATMENT 2023-07-24 18:31:11 Doctor Unassigned, [place] [facility] XR CHEST 2 VW 2023-07-12 03:54:00 [facility] 2023-07-12 02:31:00 [facility] TROP[facility] 2023-07-12 02:14:00 Norm Saleh [facility] COMP. METABOLIC PANEL ([id number]) 2023-07-12 02:14:00 Norm Saleh [facility] CBC WITH DIFF 2023-07-12 02:14:00 Norm Saleh [facility] COVID-19 (ID NOW RAPID TESTING) 2023-07-12 02:14:00 Norm Saleh [facility] CONSENT/REFUSAL FOR DIAGNOSIS AND TREATMENT 2023-07-12 01:47:09 Doctor Unassigned, [place] [facility] CONSENT FOR MEDICAL TREATMENT OF A MINOR 2023-07-10 05:01:00 Doctor Unassigned, [place] [facility] CT ABDOMEN PELVIS W CONTRAST 2023-07-03 10:43:57 AufderheHaresh jean-baptiste [facility] URINALYSIS 2023-07-03 10:23:00 Aufderhejerilyn, [facility] LIPASE 2023-07-03 10:11:00 LubnaerHaresh chan [facility] COMP. METABOLIC PANEL ([id number]) 2023-07-03 10:11:00 DeedeefderHaresh chan [facility] CBC WITH DIFF 2023-07-03 10:11:00 Haresh Santamaria [facility] CONSENT/REFUSAL FOR DIAGNOSIS AND TREATMENT 2023-07-03 09:36:41 Doctor Unassigned, [place] [facility] CT ABDOMEN PELVIS W CONTRAST 2023-05-08 02:15:59 Riya Joseph [facility] HB ABO GROUPING 2023-05-08 01:25:00 Elvin Joseph [facility] LIPASE 2023-05-08 01:19:00 Elvin Joseph [facility] COMP. METABOLIC PANEL ([id number]) 2023-05-08 01:19:00 Riya Joseph [facility] CBC WITH DIFF 2023-05-08 01:19:00 Elvin Joseph [facility] COVID-19 (ID NOW RAPID TESTING) 2023-05-08 01:19:00 Riya Joseph [facility] CONSENT/REFUSAL FOR DIAGNOSIS AND TREATMENT 2023-05-07 22:22:14 Doctor Unassigned, [place] [facility] LIPASE 2023-05-02 03:01:00 Aydin Matos [facility] COMP. METABOLIC PANEL ([id number]) 2023-05-02 03:01:00 Aydin Matos [facility] ETHANOL 2023-05-02 03:01:00 Aydin Matos [facility] CBC WITH DIFF 2023-05-02 03:01:00 Aydin Matos [facility] URINALYSIS 2023-05-02 03:01:00 Aydin Matos [facility] URINE DRUG (IMMUNOASSAY) - COMPREHENSIVE DRUG SCREEN W/O REFLEX 2023-05-02 03:01:00 Aydin Matos [facility] CONSENT/REFUSAL FOR DIAGNOSIS AND TREATMENT 2023-05-02 02:28:20 Doctor Unassigned, [place] [facility] BASIC METABOLIC PANEL (NA, K, CL, CO2, GLUCOSE, BUN, CREATININE, CA) 2023-04-22 16:47:00 Natali Alexander [facility] LIPASE 2023-04-22 12:58:00 Natali Alexander [facility] BASIC METABOLIC PANEL (NA, K, CL, CO2, GLUCOSE, BUN, CREATININE, CA) 2023-04-22 12:58:00 Natali Alexander [facility] URINALYSIS 2023-04-22 11:44:00 Abraham Orantes [facility] CREATINE KINASE 2023-04-22 09:06:00 Natali Alexander [facility] LIPASE 2023-04-22 09:06:00 Natali Alexander [facility] COMP. METABOLIC PANEL ([id number]) 2023-04-22 09:06:00 Abraham Orantes [facility] CBC WITH DIFF 2023-04-22 09:06:00 Abraham Orantes [facility] CONSENT/REFUSAL FOR DIAGNOSIS AND TREATMENT 2023-04-22 08:52:58 Doctor Unassigned, [place] [facility] LIPASE 2023-04-16 12:30:00 Adelaide Goodwin [facility] TROPONIN I 2023-04-16 12:30:00 Adelaide Goodwin [facility] COMP. METABOLIC PANEL ([id number]) 2023-04-16 12:30:00 Adelaide Goodwin [facility] CBC WITH DIFF 2023-04-16 12:30:00 Adelaide Goodwin [facility] CONSENT/REFUSAL FOR DIAGNOSIS AND TREATMENT 2023-04-16 11:48:23 Doctor Unassigned, [place] [facility] LIPASE 2023-04-01 05:08:00 Hemalatha Mora [facility] TROPONIN I 2023-04-01 05:08:00 Hemalatha Mora [facility] COMP. METABOLIC PANEL ([id number]) 2023-04-01 05:08:00 Hemalatha Mora [facility] CBC WITH DIFF 2023-04-01 05:08:00 Hemalatha Mora [facility] URINALYSIS 2023-04-01 05:08:00 Hemalatha Mora [facility] CONSENT/REFUSAL FOR DIAGNOSIS AND TREATMENT 2023-04-01 04:51:45 Doctor Unassigned, [place] [facility] ASSIGNMENT OF BENEFITS 2023-02-13 21:19:49 Docto r Unassigned, [place] [facility] POCT GLUCOSE (AUTOMATED) 2023-02-13 21:00:00 Alan Gonzales [facility] CONSENT/REFUSAL FOR DIAGNOSIS AND TREATMENT 2023-02-13 20:50:30 Doctor Unassigned, [place] [facility] REFERRAL- REQUEST/RESPONSE 2023-01-05 05:01:00 Doctor Unassigned, [place] [facility] LIPASE 2022-12-09 05:03:00 Soham Clarke [facility] COMP. METABOLIC PANEL ([id number]) 2022-12-09 05:03:00 Soham Clarke [facility] CBC WITH DIFF 2022-12-09 05:03:00 [facility] 2022-12-09 05:03:00 Soham Clarke [facility] NOTICE OF PRIVACY PRACTICES 2022-12-09 04:46:36 Doctor Unassigned, [place] [facility] CONSENT/REFUSAL FOR DIAGNOSIS AND TREATMENT 2022-12-09 04:46:16 Doctor Unassigned, [place] [facility] CT ABDOMEN PELVIS W CONTRAST 2022-11-25 05:38:20 Lion Rodriguez [facility] LIPASE 2022-11-25 05:06:00 [facility] HEPATIC FUNCTION PANEL ([id number]) (ALB,T.PRO,BILI T,BU/BC,ALT,AST,ALK PHOS) 2022-11-25 05:06:00 Azam [facility] BASIC METABOLIC PANEL (NA, K, CL, CO2, GLUCOSE, BUN, CREATININE, CA) 2022-11-25 05:06:00 Azam [facility] CBC WITH DIFF 2022-11-25 05:06:00 [facility] URINALYSIS 2022-11-25 05:06:00 Lion Rodriguez [facility] CONSENT/REFUSAL FOR DIAGNOSIS AND TREATMENT 2022-11-25 04:35:51 Doctor Unassigned, [place] [facility] EXTERNAL PROVIDER RECORDS 2022-10-23 06:01:00 Do ctor Unassigned, [place] [facility] CBC WITH DIFF 2022-10-12 21:26:00 Lb Bates [facility] PROSTATIC SPECIFIC ANTIGEN 2022-10-12 10:48:00 Jonh Roman [facility] HEPATIC FUNCTION PANEL ([id number]) (ALB,T.PRO,BILI T,BU/BC,ALT,AST,ALK PHOS) 2022-10-12 10:48:00 Lb Bates [facility] BASIC METABOLIC PANEL (NA, K, CL, CO2, GLUCOSE, BUN, CREATININE, CA) 2022-10-12 10:48:00 Lb Bates [facility] CBC WITH DIFF 2022-10-12 10:48:00 Lb Bates [facility] HEPATIC FUNCTION PANEL ([id number]) (ALB,T.PRO,BILI T,BU/BC,ALT,AST,ALK PHOS) 2022-10-11 23:53:00 [facility] BASIC METABOLIC PANEL (NA, K, CL, CO2, GLUCOSE, BUN, CREATININE, CA) 2022-10-11 23:53:00 [facility] US GALL BLADDER 2022-10-11 22:28:58 [facility] ABORH CONFIRMATION (LAB ONLY) 2022-10-11 21:24:00 [facility] URINALYSIS 2022-10-11 21:23:00 Lb Bates [facility] HB ABO GROUPING 2022-10-11 20:41:00 [facility] CBC WITH DIFF 2022-10-11 20:35:00 Lb [facility]/PELVIS 2022-10-11 14:52:00 Aydin Matos [facility] HB ECG ROUTINE & RHYTHM STRIP 2022-10-11 13:48:04 Aydin Matos [facility] LIPASE 2022-10-11 13:42:00 Aydin Matos [facility] TROPONIN I 2022-10-11 13:42:00 Aydin Matos [facility] COMP. METABOLIC PANEL ([id number]) 2022-10-11 13:42:00 [facility] ([id number])(TOTAL CHOLESTEROL, TRIGLYCERIDES, HDL) 2022-10-11 13:42:00 [facility] CBC WITH DIFF 2022-10-11 13:42:00 Aydin Matos [facility] PROTHROMBIN TIME / INR 2022-10-11 13:42:00 Nicholas Matos [facility] ACTIVATED PARTIAL THRMPLAS TAE 2022-10-11 13:42:00 Aydin Matos [facility] N-TERMINAL PRO-BNP 2022-10-11 13:42:00 Aydin Matos [facility] URINE DRUG (IMMUNOASSAY) - COMPREHENSIVE DRUG SCREEN W/O REFLEX 2022-10-11 13:42:00 Aydin Matos [facility] CONSENT/REFUSAL FOR DIAGNOSIS AND TREATMENT 2022-10-11 12:24:48 Doctor Unassigned, [place] [facility] CT ABDOMEN PELVIS W CONTRAST 2022-10-09 06:30:25 Abraham Orantes [facility] LIPASE 2022-10-09 05:24:00 Sandraak [facility] COMP. METABOLIC PANEL ([id number]) 2022-10-09 05:24:00 Abraham Orantes [facility] CBC WITH DIFF 2022-10-09 05:24:00 Abraham Orantes [facility] URINALYSIS 2022-10-09 05:24:00 [facility] CONSENT/REFUSAL FOR DIAGNOSIS AND TREATMENT 2022-10-09 03:56:57 Doctor Unassigned, [place] [facility] COMP. METABOLIC PANEL ([id number]) 2022-08-20 15:11:00 Trevor Taylor Tiffanie [facility] CBC WITH DIFF 2022-08-20 15:11:00 Trevor Taylor [facility] URINALYSIS 2022-08-20 15:11:00 Trevor Taylor [facility] CONSENT/REFUSAL FOR DIAGNOSIS AND TREATMENT 2022-08-20 14:32:58 Doctor Unassigned, [place] [facility] CT ABDOMEN PELVIS W CONTRAST 2022-06-09 13:12:35 Soham Clarke [facility] LIPASE 2022-06-09 12:48:00 Soham Clarke [facility] COMP. METABOLIC PANEL ([id number]) 2022-06-09 12:48:00 Soham Clarke [facility] CBC WITH DIFF 2022-06-09 12:48:00 [facility] 2022-06-09 12:48:00 Soham Clarke [facility] NOTICE OF PRIVACY PRACTICES 2022-06-09 11:47:39 Doctor Unassigned, [place] [facility] CONSENT/REFUSAL FOR DIAGNOSIS AND TREATMENT 2022-06-09 11:47:18 Doctor Unassigned, [place] [facility] PHOSPHORUS 2021-11-01 09:55:00 Darshan Jerrica [facility] MAGNESIUM 2021-11-01 09:55:00 Darshan [facility] BASIC METABOLIC PANEL (NA, K, CL, CO2, GLUCOSE, BUN, CREATININE, CA) 2021-11-01 09:55:00 Darshan [facility] CBC WITH DIFF 2021-11-01 09:55:00 Darshan [facility] PHOSPHORUS 2021-10-31 08:45:00 Leela [facility] CREATINE KINASE 2021-10-31 08:45:00 Roxanne Swenson [facility] MAGNESIUM 2021-10-31 08:45:00 Emelia Gallego [facility] TROPONIN I 2021-10-31 08:45:00 Roxanne Swenson [facility] COMP. METABOLIC PANEL ([id number]) 2021-10-31 08:45:00 Roxanne Swenson [facility] CBC WITH DIFF 2021-10-31 08:45:00 Emelia Gallego [facility] PROTHROMBIN TIME / INR 2021-10-31 08:45:00 Ramos Swenson [facility] N-TERMINAL PRO-BNP 2021-10-31 08:45:00 Roxanne Swenson [facility] LACTIC ACID WHOLE BLOOD 2021-10-31 08:45:00 Erwin Swenson [facility] FECES CULTURE 2021-10-30 22:27:00 Monica Hernandez [facility] OCCULT (GUAIAC) BLOOD 2021-10-30 22:27:00 Juany Hernandez [facility] CLOSTRIDIUM DIFFICILE TOXIN 2021-10-30 22:27:00 Monica Hernandez [facility] COVID-19 (ID NOW RAPID TESTING) 2021-10-30 21:24:00 Madison Sepulveda [facility] LAB ONLY COVID INTERPRETATION 2021-10-30 21:24:00 Madison Sepulveda [facility] CT ABDOMEN PELVIS W CONTRAST 2021-10-30 20:44:09 Madison Sepulveda [facility] LIPASE 2021-10-30 20:25:00 Madison Sepulveda [facility] TROPONIN I 2021-10-30 20:25:00 Roxanne Swenson [facility] COMP. METABOLIC PANEL ([id number]) 2021-10-30 20:25:00 Madison Sepulveda [facility] CBC WITH DIFF 2021-10-30 20:25:00 Madison Sepulveda [facility] URINALYSIS 2021-10-30 20:25:00 Madison Sepulveda [facility] N-TERMINAL PRO-BNP 2021-10-30 20:25:00 Roxanne Swenson [facility] CONSENT/REFUSAL FOR DIAGNOSIS AND TREATMENT 2021-10-30 19:24:05 Doctor Unassigned, [place] [facility] CREATINE KINASE 2021-05-24 04:40:00 Felipe Ortega U [facility] BASIC METABOLIC PANEL (NA, K, CL, CO2, GLUCOSE, BUN, CREATININE, CA) 2021-05-24 04:40:00 Felipe Ortega [facility] URINALYSIS 2021-05-24 02:14:00 Felpie Ortega [facility] CREATINE KINASE 2021-05-24 01:53:00 Felipe Ortega U [facility] TROPONIN I 2021-05-24 01:53:00 Felipe Ortega [facility] COMP. METABOLIC PANEL (70903) 2021-05-24 01:53:00 Felipe Ortega [facility] CBC WITH DIFF 2021-05-24 01:53:00 Felipe Ortega [facility] N-TERMINAL PRO-BNP 2021-05-24 01:53:00 Felipe Ortega [facility] ASSIGNMENT OF BENEFITS 2021-05-23 00:46:04 Docto r Unassigned, [place] [facility] CONSENT/REFUSAL FOR DIAGNOSIS AND TREATMENT 2021-05-22 23:31:57 Doctor Unassigned, [place] [facility] SARS-COV-2 COVID-19 VACCINE,0.3ML,IM (PFIZER) 2021-05-07 16:12:40 Doctor Unassigned, [place] [facility] RAPID STREP SCREEN FOR GROUP A 2021-05-02 00:07:00 Aydin Matos [facility] COVID-19 (ID NOW RAPID TESTING) 2021-05-02 00:07:00 Aydin Matos [facility] CONSENT/REFUSAL FOR DIAGNOSIS AND TREATMENT 2021-05-01 23:56:07 Doctor Unassigned, [place] [facility] RAPID STREP SCREEN FOR GROUP A 2021-04-02 01:05:00 Nikhil Blanton [facility] COVID-19 (ID NOW RAPID TESTING) 2021-04-02 01:05:00 Nikhil Blanton [facility] NOTICE OF PRIVACY PRACTICES 2021-04-02 00:56:18 Doctor Unassigned, [place] [facility] CONSENT/REFUSAL FOR DIAGNOSIS AND TREATMENT 2021-04-02 00:49:05 Doctor Unassigned, [place] [facility] XR WRIST 3+ VW LEFT 2021-03-18 01:19:59 Destini Blanton [facility] URINALYSIS 2021-03-18 01:12:00 Nikhil Blanton [facility] CONSENT/REFUSAL FOR DIAGNOSIS AND TREATMENT 2021-03-18 00:56:01 Doctor Unassigned, [place] [facility] XR CHEST 1 VW 2020-11-15 03:48:28 Darnell Hsu [facility] CONSENT/REFUSAL FOR DIAGNOSIS AND TREATMENT 2020-11-15 03:11:27 Doctor Unassigned, [place] [facility] CT HEAD WO CONTRAST 2020-09-30 15:00:43 Jessica Siddiqui ra [facility] XR CHEST 1 VW 2020-09-30 14:37:13 Jessy Siddiqui U [facility] LIPASE 2020-09-30 14:25:00 Jessy Siddiqui Un [facility] TROPONIN I 2020-09-30 14:25:00 Jessy Siddiqui Un [facility] COMP. METABOLIC PANEL (99720) 2020-09-30 14:25:00 Jessy Siddiqui [facility] CBC WITH DIFF 2020-09-30 14:25:00 Jessy Siddiqui U [facility] N-TERMINAL PRO-BNP 2020-09-30 14:25:00 Solitario Siddiqui [facility] NOTICE OF PRIVACY PRACTICES 2020-09-30 13:57:13 Doctor Unassigned, [place] [facility] CONSENT/REFUSAL FOR DIAGNOSIS AND TREATMENT 2020-09-30 13:55:57 Doctor Unassigned, [place] [facility] EKG-12 LEAD 2020-07-02 03:20:42 Felipe Ortega [facility] LIPASE 2020-07-02 03:05:00 Abraham Orantes [facility] TROPONIN I 2020-07-02 03:05:00 Felipe Ortega [facility] COMP. METABOLIC PANEL (92533) 2020-07-02 03:05:00 Abraham Orantes [facility] CBC WITH DIFF 2020-07-02 03:05:00 Abraham Orantes [facility] NOTICE OF PRIVACY PRACTICES 2020-07-02 02:48:43 Doctor Unassigned, [place] [facility] CONSENT/REFUSAL FOR DIAGNOSIS AND TREATMENT 2020-07-02 02:46:14 Doctor Unassigned, [place] [facility] Plan of Care Planned Activity Planned Date Details Comments Source Goal Plan of Care Note [code = 42636-7] Goal Plan of Care Note [code = 99715-7] Goal Plan of Care Note [code = 59889-7] Goal Plan of Care Note [code = 72693-9] Goal Plan of Care Note [code = 13941-7] Goal Plan of Care Note [code = 22232-6] Goal Plan of Care Note [code = 75164-6] Goal Plan of Care Note [code = 65464-4] Goal Plan of Care Note [code = 51116-6] Goal Plan of Care Note [code = 15708-3] Goal Plan of Care Note [code = 07261-9] Goal Plan of Care Note [code = 19238-7] Goal Plan of Care Note [code = 33554-2] Goal Plan of Care Note [code = 01565-3] Goal Plan of Care Note [code = 68702-7] Encounters Start Date/Time End Date/Time Encounter Type Admission Type Attending [facility] Facility Care Department Encounter ID Source 2022-07-29 14:17:02 Outpatient JacobMayuri [facility] [id number] [facility] 2022-07-11 08:20:03 Outpatient Jacob Mayuri [facility] [id number] [facility] 2025-05-17 08:30:00 2025-05-17 08:30:00 Outpatient RENÉ BRITT [facility] [id number] [facility] 2025-04-30 11:07:00 2025-04-30 14:26:00 Emergency X AUGUSTINE WASSERMAN [facility] ERT [id number] [facility] 2025-04-06 19:15:00 2025-04-06 23:10:00 Emergency X LION RODRIGUEZ [facility] ERT [id number] [facility] 2025-03-28 00:00:00 2025-03-28 00:00:00 Outpatient ANSELMO GENAO [id number] Luz Maria [facility] 2025-03-22 00:00:00 2025-03-22 00:00:00 Outpatient ANSELMO GENAO [id number] Luz Maria Ng 2025-03-14 00:00:00 2025-03-14 00:00:00 Outpatient LEANDRO MANN [id number] Luz Maria Ng 2025-03-13 00:00:00 2025-03-13 00:00:00 Outpatient LEANDRO MANN LUZ MARIA [facility]LL[facility] [id number] [facility]z [facility] 2025-02-27 00:00:00 2025-02-27 00:00:00 Outpatient LEANDRO MANN LUZ MARIA [facility] [id number] [facility] 2025-02-13 00:00:00 2025-02-13 00:00:00 Outpatient LEANDRO MANN LUZ MARIA [facility] [id number] Luz [facility] 2025-02-10 00:00:00 2025-02-10 00:00:00 Outpatient LEANDRO MANN LUZ MARIA [facility] [id number] [facility] 2025-01-31 10:15:00 2025-01-31 10:15:00 Outpatient PREZAS, ANSELMOHERACLIO HOLLIDAY [id number] Luz Maria [facility] 2025-01-25 00:00:00 2025-01-25 00:00:00 Outpatient PREZASYUDYANSELMOHERACLIO HOLLIDAY [id number] Luz [facility] 2025-01-03 00:00:00 2025-01-03 00:00:00 Outpatient LEANDRO MANN LUZ MARIA [facility] [id number] Luz [facility] 2025-01-02 09:00:00 2025-01-02 09:00:00 Outpatient LEANDRO MANN LUZ MARIA [facility] [id number] Luz Maria [facility] 2024-11-28 00:00:00 2024-11-28 00:00:00 Outpatient PREZAS, ANSELMO HOLLIDAY [id number] Luz Maria [facility] 2024-11-28 00:00:00 2024-11-28 00:00:00 Outpatient PREZAS, ANSELMO HOLLIDAY [id number] Luz Maria [facility] 2024-10-30 00:00:00 2024-10-30 00:00:00 Outpatient PREZAS, ANSELMO HOLLIDAY [id number] Luz Maria [facility] 2024-10-26 00:00:00 2024-10-26 00:00:00 Outpatient PREZAS, ANSELMO HOLLIDAY [id number] Luz Maria Seybold 2024-10-25 00:00:00 2024-10-25 00:00:00 Outpatient GINUR LUZ MARIA [facility] [id number] [facility]z Maria [facility] 2024-10-20 00:00:00 2024-10-20 00:00:00 Outpatient PREZAANSELMO Genao LUZ MARIA [id number] [facility] 2024 10:35:00 2024 10:35:00 Outpatient [id number] LUZ MARIA [facility] [id number] [facility]z [facility] 2024 09:45:00 2024 09:45:00 Outpatient PREZAANSELMO Genao LUZ MARIA [id number] [facility] 2024-10-17 00:00:00 2024-10-17 00:00:00 Outpatient PREZASANSELMO LUZ MARIA HOLLIDAY [id number] [facility] 2024-10-12 00:00:00 2024-10-12 00:00:00 Outpatient PREZASANSELMO LUZ MARIA HOLLIDAY [id number] Luz Maria [facility] 2024-10-12 00:00:00 2024-10-12 00:00:00 Outpatient PREZASANSELMO LUZ MARIA HOLLID[facility] [id number] [facility] 2024-09-27 00:00:00 2024-09-27 00:00:00 Outpatient PREZASANSELMO LUZ MARIA HOLLIDAY [id number] Luz Maria [facility] 2024-08-30 00:00:00 2024-08-30 00:00:00 Outpatient PREZASANSELMO LUZ MARIA [facility] [id number] [facility] 2024-08-29 09:30:00 2024-08-29 09:30:00 Outpatient RY OMARITON HOLLIDAY [id number] Luz [facility] 2024-08-05 08:30:00 2024-08-05 08:30:00 Out[facility] [id number] [facility] 2024-08-03 00:00:00 2024-08-03 00:00:00 Outpatient MD LUZ MARIA AN [id number] Luz Maria [facility] 2024-07-29 00:00:00 2024-07-29 00:00:00 Outpatient PREZAS, ANSELMO ONEILLSEY [id number] Luz Maria Ng 2024-07-28 00:00:00 2024-07-28 00:00:00 Outpatient PREZAANSELMO Genao LUZ MARIA [facility] [id number] [facility] 2024-07-28 00:00:00 2024-07-28 00:00:00 Outpatient MACKENZIELEANDRO LAW LUZ MARIA [facility] [id number] [facility] Maria [facility] 2024-07-20 08:45:00 2024-07-20 08:45:00 Outpatient PREZAS, ANSELMO HOLLIDAY [id number] Luz Maria Ng 2024-07-07 00:00:00 2024-07-07 00:00:00 Outpatient PREZAS ANSELMO HOLLIDAY [id number] [facility] 2024-06-16 00:00:00 2024-06-16 00:00:00 Outpatient PREZAS ANSELMO HOLLIDAY [id number] Luz Maria [facility] 2024-06-07 16:57:00 2024-06-07 20:05:00 Emergency X LUKE CLARKE JOSHUA [facility] [id number] [facility] 2024-06-07 16:57:00 2024-06-07 20:05:00 Emergency Luke Clarke [facility] 1.2.840.114 350.1.13.10 4.2.7.2.686 [id number] [facility] 2024-05-30 09:45:00 2024-05-30 09:45:00 Outpatient PREZAS ANSELMO HOLLIDAY [id number] [facility] 2024-05-26 08:30:00 2024-05-26 08:30:00 Outpatient HARSHIL STYLES [id number] Luz Maria [facility] 2024-05-26 00:00:00 2024-05-26 00:00:00 Outpatient SIDADRI HEREDIA [facility] MAR[facility] [id number] [facility] 2024-05-25 00:00:00 2024-05-25 00:00:00 Outpatient PREZAS ANSELMO ONEILLSEY [id number] [facility] 2024-05-24 15:00:00 2024-05-24 15:00:00 Outpatient ANSELMO GENAO LUZ MARIA [facility] [id number] Luz Maria [facility] 2024-05-23 00:00:00 2024-05-23 00:00:00 Outpatient MD LUZ MARIA AN [id number] [facility] 2024-05-18 11:10:00 2024-05-18 11:10:00 Outpatient NEPTALI FRAGOSOThomas HOLLIDAY [id number] [facility] 2024-05-12 00:00:00 2024-05-12 00:00:00 Outpatient LUZ MAIRA HOLLIDAY [id number] Lu[facility] 2024-05-09 00:00:00 2024-05-09 00:00:00 Outpatient ANSELMO GENAO LUZ MARIA HOLL[facility]AY [id number] Luz [facility] 2024-05-05 00:00:00 2024-05-05 00:00:00 Outpatient GIBRAN MCADAMS [id number] [facility] 2024-05-04 08:30:00 2024-05-04 08:30:00 Outpatient LUZ MARIA HOLLIDAY [id number] Luz Maria [facility] 2024-04-29 00:00:00 2024-04-29 00:00:00 Outpatient ANSELMO GENAO LUZ MARIA [facility] [id number] Lu[facility] 2024-04-22 08:00:00 2024-04-22 08:00:00 Outpatient LUZ MARIA HOLLIDAY [id number] Luz [facility] 2024-04-12 09:40:00 2024-04-12 09:40:00 Outpatient BROOK ALLEN [id number] Lu[facility] 2024-04-11 08:00:00 2024-04-11 08:00:00 Outpatient LUZ MARIA HOLLIDAY [id number] Luz Maria [facility] 2024-04-11 00:00:00 2024-04-11 00:00:00 Outpatient GIBRAN MCADAMS [id number] [facility] 2024-04-08 16:30:00 2024-04-08 16:30:00 Outpatient LEANDRO MANN LUZ MARIA [facility] [id number] [facility] 2024-04-04 08:10:00 2024-04-04 08:10:00 Outpatient LAB90 LUZ MARIA HOLLIDAY [id number] [facility] 2024-04-02 08:39:00 2024-04-02 12:55:00 Emergency X Treovr TAYLOR K [facility] ERT [id number] [facility] 2024-04-02 08:39:00 2024-04-02 12:55:00 Emergency Trevor Taylor [facility] 1.2.840.114 350.1.13.10 4.2.7.2.686 [id number] [facility] 2024-04-02 00:00:00 2024-04-02 00:00:00 Outpatient GERALD VIDAL [id number] [facility] 2024-03-30 09:00:00 2024-03-30 09:00:00 Outpatient LAB47 LUZ MARIA HOLLIDAY [id number] Luz Maria [facility] 2024-03-30 08:30:00 2024-03-30 08:30:00 Outpatient GIBRAN MCADAMS [id number] [facility] 2024-03-30 00:00:00 2024-03-30 00:00:00 Outpatient GIBRAN MCADAMS [id number] [facility] 2024-03-30 00:00:00 2024-03-30 00:00:00 Outpatient ANSELMO GENAO [id number] Luz Maria [facility] 2024-03-28 00:00:00 2024-03-28 00:00:00 Outpatient ANSELMO GENAO [id number] Luz Maria [facility] 2024-03-23 00:00:00 2024-03-23 00:00:00 Outpatient ANSELMO GENAO [id number] [facility] 2024-02-29 00:00:00 2024-02-29 13:30:22 Letter (Out) Karl Ferguson [facility] 1.2.840.114 350.1.13.10 4.2.7.2.686 [id number] [facility] 2024-02-24 00:00:00 2024-02-24 00:00:00 Outpatient OUTSIDE MELINA HOLLIDAY [id number] Luz Maria [facility] 2024-02-24 00:00:00 2024-02-24 00:00:00 Outpatient PREZAS, ANSELMO LUZ MARIA HOLLIDAY [id number] Luz Maria [facility] 2024-02-22 00:00:00 2024-02-22 14:50:01 Letter (Out) Elida Lewis [facility] 1.2.840.114 350.1.13.10 4.2.7.2.686 [id number] [facility] 2024-02-22 00:00:00 2024-02-22 00:00:00 Outpatient PREZAS, ANSELMOHERACLIO HOLLIDAY [id number] Luz Maria [facility] 2024-02-20 21:47:00 2024-02-20 23:54:00 Emergency LETI ROGERS ERICCA [facility] ERT [id number] [facility] 2024-02-20 21:47:00 2024-02-20 23:54:00 Emergency Leti Rivas [facility] 1.2.840.114 350.1.13.10 4.2.7.2.686 [id number] [facility] 2024-01-26 00:00:00 2024-01-26 00:00:00 Outpatient PREZABirgit, ANSELMO HOLLIDAY [id number] [facility] 2024-01-15 00:00:00 2024-01-15 00:00:00 Outpatient PREZAANSELMO Genao [id number] [facility] 2023-12-28 00:00:00 2023-12-28 00:00:00 Outpatient PREZAANSELMO Genao LUZ MARIA [id number] Luz Maria Ng 2023-12-18 00:00:00 2023-12-18 00:00:00 Outpatient LUZ MARIA HOLLIDAY [id number] [facility] 2023-12-17 15:30:00 2023-12-17 15:30:00 Outpatient ANGIEZAANSELMO Genao LUZ MARIA [id number] [facility] 2023-12-11 00:00:00 2023-12-11 00:00:00 Outpatient PREZAANSELMO GenaoSEY [id number] [facility] 2023-12-09 20:14:00 2023-12-09 23:50:00 Emergency X ABRAHAM ORANTES [facility] ERT [id number] [facility] 2023-12-09 20:14:00 2023-12-09 23:50:00 Emergency Abraham Orantes [facility] .2.840.114 350.1.13.10 4.2.7.2.686 [id number] [facility] 2023-11-24 00:00:00 2023-11-24 00:00:00 Outpatient PREANSELMO MILNER LUZ MARIA [id number] Luz Maria [facility] 2023-11-18 00:00:00 2023-11-18 00:00:00 Letter (Out) Chavez Turner [facility] .2.840.114 350.1.13.10 4.2.7.2.686 [id number] [facility] 2023-11-10 14:00:00 2023-11-10 14:00:00 Outpatient PREZAANSELMO Genao LUZ MARIA [id number] [facility] 2023-11-09 00:00:00 2023-11-09 00:00:00 Outpatient PREANNIA ANSELMO HOLLIDAY [id number] Luz Maria [facility] 2023-11-06 00:00:00 2023-11-06 00:00:00 Outpatient ANSELMO GENAO LUZ MARIA HOLLIDAY [id number] Luz Maria [facility] 2023 11:30:00 2023 11:30:00 Outpatient CALLIE THORNE JULIANA [facility] [id number] [facility] 2023-10-16 00:00:00 2023-10-16 00:00:00 Outpatient ANSELMO GENAO LUZ MARIA HOLLIDAY [id number] Luz Maria [facility] 2023-10-13 00:00:00 2023-10-13 00:00:00 Outpatient LUZ MARIA HOLLIDAY [id number] Luz Maria [facility] 2023-10-06 14:30:00 2023-10-06 14:30:00 Outpatient ANGEL ANSELMO LUZ MARIA HOLLIDAY [id number] [facility] 2023-08-14 00:00:00 2023-08-14 00:00:00 Outpatient MERLYN WORTHINGTON [facility] [id number] [facility] 2023-08-13 00:00:00 2023-08-13 00:00:00 Patient Secure Msg Doctor Unassigned, [place] [facility] 1..840.114 350.1.13.10 4.2.7.2.686 [id number] [facility] 2023-08-11 16:15:00 2023-08-11 16:15:00 Outpatient ADAN CHESTER [id number] [facility] 2023-08-03 20:26:00 2023-08-04 00:05:00 Emergency X YOHANAKADENMERLYNABRAHAM [facility] ERT [id number] [facility] 2023-08-03 20:26:00 2023-08-04 00:05:00 Emergency YohanakadenmerlynAbraham S [facility] 1..840.114 350.1.13.10 4.2.7.2.686 [id number] [facility] 2023-08-03 00:00:00 2023-08-03 00:00:00 Outpatient KIARA RICHARDSON [id number] Luz Maria Ng 2023-08-03 00:00:00 2023-08-03 00:00:00 Orders Only Doctor Unassigned, [place] [facility] 1.2840.114 350.1.13.10 4.2.7.2.686 [id number] [facility] 2023-07-25 09:58:00 2023-07-25 12:56:00 Emergency X CLAUDIA Trevor [facility] ERT [id number] [facility] 2023-07-25 09:58:00 2023-07-25 12:56:00 Emergency ClaudiaTrevor seymourge [facility] 1.2840.114 350.1.13.10 4.2.7.2.686 [id number] [facility] 2023-07-24 12:36:00 2023-07-24 17:49:00 Emergency X BERTRAMJOHNATHAN FITZPATRICK [facility] ERT [id number] [facility] 2023-07-24 12:36:00 2023-07-24 17:49:00 Emergency Johnathan Avila [facility] 1.840.114 350.1.13.10 4.2.7.2.686 [id number] [facility] 2023-07-24 14:30:00 2023-07-24 14:30:00 Outpatient ADAN CHESTER [id number] Luz Maria Ng 2023-07-24 00:00:00 2023-07-24 00:00:00 Telephone Merlyn Hidalgo [facility] 1.2840.114 350.1.13.10 4.2.7.2.686 [id number] [facility] 2023-07-23 05:22:00 2023-07-23 10:02:00 Emergency EM Jessie Paul [facility] [id number] 2023-07-22 00:00:00 2023-07-22 00:00:00 Telephone Merlyn Hidalgo [facility] 1..840.114 350.1.13.10 4.2.7.2.686 [id number] [facility] 2023-07-22 00:00:00 2023-07-22 00:00:00 Patient Secure Msg Doctor Unassigned, [place] [facility] [employer] [facility] 1.2.840.114 350.1.13.10 4.2.7.2.686 [id number] [facility] 2023-07-20 00:00:00 2023-07-20 00:00:00 Telephone Emerald Dunnellon [facility] 1..840.114 350.1.13.10 4.2.7.2.686 [id number] [facility] 2023-07-17 13:45:00 2023-07-17 13:45:00 Outpatient JIMMY BRENNAN [id number] Luz Maria Ng 2023-07-11 20:53:00 2023-07-11 23:38:00 Emergency X STEPHIE HEWITT [facility] ERT [id number] [facility] 2023-07-11 20:53:00 2023-07-11 23:38:00 Emergency Stephie [facility] 1.840.114 350.1.13.10 4.2.7.2.686 [id number] [facility] 2023-07-10 08:45:00 2023-07-10 12:03:37 Outpatient R MERLYN HIDALGO [facility] [id number] [facility] 2023-07-10 08:45:00 2023-07-10 12:03:37 Office Visit Merlyn Hidalgo [facility] 1.2.840.114 350.1.13.10 4.2.7.2.686 [id number] [facility] 2023-07-10 00:00:00 2023-07-10 00:00:00 Orders Only Doctor Unassigned, [place] [facility] 1.2.840.114 350.1.13.10 4.2.7.2.686 [id number] [facility] 2023-07-08 09:15:00 2023-07-08 09:15:00 Outpatient KIARA RICHARDSON [id number] Luz Maria Ng 2023-07-03 04:49:00 2023-07-03 09:47:00 Emergency X MIRIAM LUDWIG DIETRICH [facility] ERT [id number] [facility] 2023-07-03 04:49:00 2023-07-03 09:47:00 [facility] 1.2.840.114 350.1.13.10 4.2.7.2.686 [id number] [facility] 2023-07-01 22:56:00 2023-07-02 01:00:00 Emergency Jessie Billingsley [facility] ER [id number] [facility] 2023-05-20 15:50:00 2023-05-20 15:50:00 Outpatient LAB56 LUZ MARIA HOLLIDAY [id number] Luz Maria marcell 2023-05-20 15:15:00 2023-05-20 15:15:00 Outpatient KIARA RICHARDSON [id number] Luz Maria Ng 2023-05-07 17:37:00 2023-05-07 23:23:00 Emergency X JESSICA CHAMBERLAIN [facility] ERT [id number] [facility] 2023-05-07 17:37:00 2023-05-07 23:23:00 Emergency Jessica Chamberlain [facility] 1.2.840.114 350.1.13.10 4.2.7.2.686 [id number] [facility] 2023-05-01 21:39:00 2023-05-02 00:35:00 Emergency X AYDIN MATOS [facility] ERT [id number] [facility] 2023-05-01 21:39:00 2023-05-02 00:35:00 Emergency Aydin Matos [facility] 1.2.840.114 350.1.13.10 4.2.7.2.686 [id number] [facility] 2023-04-22 03:51:00 2023-04-22 13:11:00 Emergency X NATALI ALEXANDER [facility] ERT [id number] [facility] 2023-04-22 03:51:00 2023-04-22 13:11:00 Emergency Abraham Orantes [facility] 1.2.840.114 350.1.13.10 4.2.7.2.686 [id number] [facility] 2023-04-16 07:09:00 2023-04-16 09:00:00 Emergency X ADELAIDE GOODWIN [facility] ERT [id number] [facility] 2023-04-16 07:09:00 2023-04-16 09:00:00 Emergency Adelaide Goodwin [facility] 1.2.840.114 350.1.13.10 4.2.7.2.686 [id number] [facility] 2023-03-31 23:59:00 2023-04-01 03:24:00 Emergency X HEMALATHA MORA [facility] ERT [id number] [facility] 2023-03-31 23:59:00 2023-04-01 03:24:00 Emergency Hemalatha Mora [facility] 1.2.840.114 350.1.13.10 4.2.7.2.686 [id number] [facility] 2023-02-13 16:02:00 2023-02-13 17:25:00 Emergency X JESSICA GONZALES [facility] ERT [id number] [facility] 2023-02-13 16:02:00 2023-02-13 17:25:00 Emergency Jessica Gonzales S [facility] 1.2.840.114 350.1.13.10 4.2.7.2.686 [id number] [facility] 2023-01-05 00:00:00 2023-01-05 00:00:00 Orders Only Doctor Unassigned, [place] [facility] 1.2.840.114 350.1.13.10 4.2.7.2.686 [id number] [facility] 2022-12-29 17:25:40 2022-12-29 17:25:40 Outpatient SYMMES [facility] [id number] [address] 2022-12-09 00:01:00 2022-12-09 01:39:00 Emergency X SOHAM CLARKE [facility] ERT [id number] [facility] 2022-12-09 00:01:00 2022-12-09 01:39:00 Emergency Soham Clarke [facility] 1.2.840.114 350.1.13.10 4.2.7.2.686 [id number] [facility] 2022-11-24 23:44:00 2022-11-25 02:56:00 Emergency X MATOSAYDIN [facility] ERT [id number] [facility] 2022-11-24 23:44:00 2022-11-25 02:56:00 Emergency Lion Rodriguez [facility] 1.2.840.114 350.1.13.10 4.2.7.2.686 [id number] [facility] 2022-10-25 00:00:00 2022-10-25 00:00:00 Patient Secure Msg Doctor Unassigned, [place] [facility] 1.2.840.114 350.1.13.10 4.2.7.2.686 [id number] [facility] 2022-10-23 00:00:00 2022-10-23 00:00:00 Orders Only Doctor Unassigned, [place] [facility] 1.2840.114 350.1.13.10 4.2.7.2.686 [id number] [facility] 2022-10-11 06:41:00 2022-10-12 17:56:00 Outpatient X MARK HER[facility]Z [facility] [id number] [facility] 2022-10-11 06:41:00 2022-10-12 17:56:00 Emergency Aydin Matos Norman [facility] 1.2840.114 350.1.13.10 4.2.7.2.686 [id number] [facility] 2022-10-08 22:15:00 2022-10-09 01:39:00 Emergency X ABRAHAM ORANTES [facility] ERT [id number] [facility] 2022-10-08 22:15:00 2022-10-09 01:39:00 Emergency Abraham Orantes [facility] 1.2.840.114 350.1.13.10 4.2.7.2.686 [id number] [id number] [facility] 2022-10-08 00:00:00 2022-10-08 00:00:00 Orders Only Doctor Unassigned, [place] [facility] 1.2.840.114 350.1.13.10 4.2.7.2.686 [id number] [facility] 2022-08-20 08:42:00 2022-08-20 12:19:00 Emergency X Trevor TAYLOR [facility] ERT [id number] [facility] 2022-08-20 08:42:00 2022-08-20 12:19:00 Emergency Trevor Taylor [facility] 1.2840.114 350.1.13.10 4.2.7.2.686 [id number] [id number] [facility] 2022-07-11 00:00:00 2022-07-11 00:00:00 OFFICE VISIT NEW PT LEVEL 3 STLMLC STLMLC [id number] [facility] 2022-07-09 10:07:22 2022-07-09 10:07:22 Outpatient [facility] [id number] [address] 2022-07-09 00:00:00 2022-07-09 00:00:00 Outpatient Visit [id number] 2022-06-09 06:57:00 2022-06-09 10:27:00 Emergency Josr BRADYRICARDOSOHAM [facility] ERT [id number] [facility] 2022-06-09 06:57:00 2022-06-09 10:27:00 Emergency Soham Clarke [facility] 1.2840.114 350.1.13.10 4.2.7.2.686 [id number] [id number] [facility] 2022-06-09 00:00:00 2022-06-09 00:00:00 Orders Only Doctor Unassigned, [place] [facility] 1.2840.114 350.1.13.10 4.2.7.2.686 [id number] [id number] [facility] 2021-11-04 00:00:00 2021-11-04 00:00:00 Transition of Care Carly Ellen REN 1.2.840.114 350.1.13.10 4.2.7.2.686 [id number] [facility] 2021-10-30 13:39:00 2021-11-01 13:45:00 Inpatient X EMELIA GALLEGO [facility] MARTI [id number] [facility] 2021-10-30 13:39:00 2021-11-01 13:45:00 Hospital Encounter Madison Sepulveda David [facility] 1.2.840.114 350.1.13.10 4.2.7.2.686 [id number] [facility] 2021-10-30 00:00:00 2021-10-30 00:00:00 Orders Only Doctor Unassigned, [place] [facility] 1.2.840.114 350.1.13.10 4.2.7.2.686 [id number] [id number] [facility] 2021-05-23 20:42:00 2021-05-24 01:42:00 Emergency Felipe Ortega B [facility] 1.2.840.114 350.1.13.10 4.2.7.2.686 [id number] [id number] [facility] 2021-05-23 20:42:00 2021-05-23 20:42:00 Emergency X FELIPE ORTEGA [facility] ERT [id number] [facility] 2021-05-22 18:37:00 2021-05-22 21:40:00 Emergency Gabriella Zarate [facility] 1.2.840.114 350.1.13.10 4.2.7.2.686 [id number] [id number] [facility] 2021-05-22 18:31:00 2021-05-22 18:31:00 Emergency X [facility] ERT [id number] [facility] 2021-05-07 11:11:35 2021-05-07 11:11:42 Imm/Inj Visit Nurse, Malika Mallory ImmunizatiDavid Handy [facility] 1.2840.114 350.1.13.10 4.2.7.2.686 [id number] [facility] 2021-05-01 19:09:00 2021-05-01 20:46:00 [facility] 1.20.114 350.1.13.10 4.2.7.2.686 [id number] [facility] 2021-05-01 18:53:00 2021-05-01 18:53:00 Emergency X [facility] ERT [id number] [facility] 2021-04-01 20:06:00 2021-04-01 21:56:00 [facility] 1.20.114 350.1.13.10 4.2.7.2.686 [id number] 2021-04-01 20:06:00 2021-04-01 21:56:00 Emergency BlantonNikhil ambrocio [facility] 1.2840.114 350.1.13.10 4.2.7.2.686 [id number] [facility] 2021-04-01 20:06:00 2021-04-01 20:06:00 Emergency X NIKHIL BLANTON [facility] ERT [id number] [facility] 2021-03-17 20:09:00 2021-03-17 22:19:00 [facility] 1.2840.114 350.1.13.10 4.2.7.2.686 [id number] 2021-03-17 20:09:00 2021-03-17 22:19:00 Emergency Nikhil Blanton [facility] 1.2.840.114 350.1.13.10 4.2.7.2.686 [id number] [facility] 2021-03-17 19:56:00 2021-03-17 19:56:00 Emergency X [facility] ERT [id number] [facility] 2020-11-15 00:00:00 2020-11-15 00:00:00 Telephone Pcp, Patient Does Not Have A [facility] 1.2.840.114 350.1.13.10 4.2.7.2.686 [id number] 2020-11-15 00:00:00 2020-11-15 00:00:00 Letter (Out) [facility] 1.2.840.114 350.1.13.10 4.2.7.2.686 [id number] 2020-11-15 00:00:00 2020-11-15 00:00:00 Letter (Out) [facility] 1.2.840.114 350.1.13.10 4.2.7.2.686 [id number] [facility] 2020-11-15 00:00:00 2020-11-15 00:00:00 Telephone Pcp, Patient Does Not Have A [facility] 1.2.840.114 350.1.13.10 4.2.7.2.686 [id number] 019 [id number] [facility] 2020-11-14 21:29:00 2020-11-14 22:55:00 Emergency Darnell Hsu [facility] 1.2.840.114 350.1.13.10 4.2.7.2.686 [id number] 084 [id number] 2020-11-14 21:29:00 2020-11-14 22:55:00 Emergency Darnell Hsu [facility] 1.2.840.114 350.1.13.10 4.2.7.2.686 [id number] [id number] [facility] 2020-11-14 21:29:00 2020-11-14 22:55:00 Emergency X MARIANNE HSUN [facility] ERT [id number] [facility] 2020-09-30 08:03:00 2020-09-30 10:45:00 Emergency Jessy Siddiqui Ember [facility] 1.2.840.114 350.1.13.10 4.2.7.2.686 [id number] 084 [id number] 2020-09-30 08:03:00 2020-09-30 10:45:00 Emergency Jessica Siddiquira Pa [facility] 1.2.840.114 350.1.13.10 4.2.7.2.686 [id number] [id number] [facility] 2020-09-30 07:58:00 2020-09-30 07:58:00 Emergency X [facility] ERT [id number] [facility] 2020-09-30 00:00:00 2020-09-30 00:00:00 Orders Only Doctor Unassigned, [place] [facility] 1.2840.114 350.1.13.10 4.2.7.2.686 [id number] 2020-09-30 00:00:00 2020-09-30 00:00:00 Orders Only Doctor Unassigned, [place] [facility] 1.2.840.114 350.1.13.10 4.2.7.2.686 [id number] [facility] 2020-07-01 21:58:00 2020-07-01 23:54:00 Emergency Felipe Ortega [facility] 1.2.840.114 350.1.13.10 4.2.7.2.686 [id number] 084 [id number] 2020-07-01 21:58:00 2020-07-01 23:54:00 Emergency Felipe Ortega B [facility] 1.2.840.114 350.1.13.10 4.2.7.2.686 [id number] [id number] [facility] 2020-07-01 21:58:00 2020-07-01 21:58:00 Emergency X FELIPE ORTEGA [facility] ERT [id number] [facility] Results Test Description Test Time Test Comments Results Resul t Comments Source CT ABDOMEN PELVIS W CONTRAST 2025-04-30 18:41:08 Ordering physician:AUGUSTINE WASSERMAN CLINICAL HISTORY: Abdominal pain, acute, nonlocalized TECHNIQUE: Contrast enhanced CT images were obtained through the abdomenand pelvis with IV contrast. ?Coronal and sagittal reformats were alsoobtained. ALARA (As Low As Reasonably Achievable) ?principles was usedduring this examination. COMPARISON: ?04/02/2024 FINDINGS: The lung bases are clear bilaterally. ? The liver, spleen, gallbladder, pancreas, adrenal glands and kidneys areunremarkable. ? The small bowel and colon are without bowel wall thickening or dilatation.Unrema rkable appendix. No free fluid or adenopathy is demonstrated in the abdomen or pelvis. ?Noevidence of free air. Hyperdensity in the urinary bladder. Nodular protrusion the prostate intothe inferior aspect of the bladder. The aortoiliac vessels are normal caliber. No acute osseous abnormality. [facility] [id number] 01:45:45EXAM: US GALL BLADDER HISTORY: 54 years-old Male; Provided indication: RUQ abd pain, r/o acutecholecystitis . TECHNIQUE: Limited abdominal ultrasound focused on the gallbladder wasperformed. The mainportal vein was evaluated with color Doppler.Cutter Barrel Drum images were obtained for the record. COMPARISON: CT abdomen pelvis on 04/02/2024 FINDINGS: PANCREAS:The pancreas is unable to be visualized due to shadowing from bowel gas. LIVER:Visualized Parenchyma: The liver parenchyma exhibits normal hepaticechogenicity and echotexture. Portal vein: Hepatopetal flow is present in the main portal vein. BILE DUCTS:No intra- or extrahepatic biliary dilatation is visualized.The common duct diameter is n ormal and measures 0.6 cm. GALLBLADDER:No shadowing stones are seen. The gallbladder is physiologically distended. The gallbladder wall thickness is normal and measures 0.2 cm. Nopericholecystic fluid is visualized.Gomez's sign could not be accurately assessed due to pain medication. OTHER: None.[facility] [id number] 23:46:29* Test Item Value Reference Range Interpretation Comme [facility] NT-proBNP (test code = 37325-9) <=125 Lab Interpretation (test cod e = 09907-0) Normal [facility]lingenTROPONIN [id number] 23:38:46* Test Item Value Reference Range Interpretation Comme nts TROPONIN I (test code = 2495124397) 0.004 ng/mL <=0.034 KRYSTLE (test code = [...] of biotin. Lab Interpretation (test code = 54836-0) Normal [facility]enXR CHEST 2 [id number] 23:34:49Exam: Chest (2 Views), 06/07/2024 5:00 PM. Ordering Physician: LUKE CLARKE. History: sob . Technique: Two views of the chest. Comparison: Chest radiograph 07/11/2023. Findings: No focal consolidation. No pneumothorax or effusion. Normal size of thecardiac silhouette. No acute osseous finding.[facility]enD-[id number] 23:30:44* Test Item Value Reference Range Interpretation Comments D-DIMER (test code = 6702348649) 0.22 See_Comment [Automated message] The system which [...] a diagnosis. Lab Interpretation (test code = 00313-9) Normal [facility]. METABOLIC PANEL (96718)2024-06-07 23:28:22* Test Item Value Reference Range Interpretation Comme nts NA (test code = 6216339739) 136 mmol/L 135-145 K (test code = 0207132939) 4.1 mmol/L 3.5-5.0 CL (test code = 6172349831) 103 mmol/L 98-108 CO2 TOTAL (test code = 6210595487) 25 mmol/L 23-31 AGAP (test code = 5228513196) 8 2-16 BUN (test code = 0528761987) 19 mg/dL 7-23 GLUCOSE (test code = 3900436545) 89 mg/dL 70-110 CREATININE (test code = 2160-0) 0.99 mg/dL 0.60-1.25 TOTAL BILI (test code = 5071007949) 1.1 mg/dL 0.1-1.1 CALCIUM (test code = 4548123173) 9.3 mg/dL 8.6-10.6 T PROTEIN (test code = 4382402506) 8.8 g/dL 6.3-8.2 H ALBUMIN (test code = 3595054986) 4.8 g/dL 3.5-5.0 ALK PHOS (test code = 6178859217) 51 U/L 34-122 ALTv (test code = 1742-6) 27 U/L 5-50 AST(SGOT) (test code = 9335346617) 35 U/L 13-40 eGFR (test code = 28629-8) 92.2 mL/min/1.73m2 CKD-EPI eGFR (2020). Assuming creatinine has been stable day-to-day for at least three months, the eGFR indicates Category G1 (>= 90 mL/min/1.73 m2) Lab Interpretation (test code = 12212-8) Abnormal [facility]enMagnesium2024-09-24 23:28:02* Test Item Value Reference Range Interpretation Comme nts MAGNESIUM (test code = 6773115930) 1.8 mg/dL 1.7-2.4 Lab Interpretation (test cod e = 10065-5) Normal [facility]enLIPASE2024-09-24 23:28:02* Test Item Value Reference Range Interpretation Comme nts LIPASE (test code = 3433930055) 67 U/L 0-220 Lab Interpretation (test cod e = 87168-2) Normal [facility]enCreatine [id number] 23:27:41* Test Item Value Reference Range Interpretation Comme nts CK (test code = 0400572606) 475 U/L 33-194 H Lab Interpretation (test cod e = 89060-9) Abnormal [facility] WITH [id number] 23:13:43* Test Item Value Reference Range Interpretation [...] 34.2 g/dL 31.2-35.0 RDW-SD (test code = 08273-0) 42.2 fL 38.5-51.6 RDW-CV (test code = 788-0) 13.0 % 12.1-15.4 PLT (test code = 777-3) 219 150-328 MPV (test code = 57551-0) 9.9 fL 9.8-13.0 NRBC/100 WBC (test code = 3833593552) 0.0 0.0-10.0 NRBC x10^3 (test code = 4227556318) See_Comment [Automated messa ge] The system which generated this result transmitted reference range: 10*3/?L. The reference range was not used to interpret this result as normal/abnormal. GRAN MAT (NEUT) % (test code = 770-8) 77.8 % IMM GRAN % (test code = 4203955788) 0.30 % LYMPH % (test code = 736-9) 15.6 % MONO % (test code = 5905-5) 5.7 % EOS % (test code = 713-8) 0.5 % BASO % (test code = 706-2) 0.1 % GRAN MAT x10^3(ANC) (test code = 3016795016) 5.87 10*3/uL 1.99-6.95 IMM GRAN x10^3 (test code = 0382462896) 0.00-0.06 LYMPH x10^3 (test code = 731-0) 1.18 10*3/uL 1.09-3.23 MONO x10^3 (test code = 742-7) 0.43 10*3/uL 0.36-1.02 EOS x10^3 (test code = 711-2) 0.04 10*3/uL 0.06-0.53 L BASO x10^3 (test code = 704-7) 0.01-0.09 Lab Interpretation (test code = 72529-3) Abnormal [facility]enEsdrasmethod[facility] hospitaldebbie [id number] 15:49:54* Test Item Value Reference Range Interpretation Comme nts TROPONIN I (test code = 3109113736) <=0.034 KRYSTLE (test code = KRYSTLE) Reference [...] of biotin. Lab Interpretation (test code = 65406-6) Normal [facility] ABD[facility] PELVIS W [id number] 15:06:25CT ABDOMEN PELVIS W CONTRAST HISTORY: 53 [...] noted.[facility]. Metabolic Panel (88038)2024-04-02 14:58:53* Test Item Value Reference Range Interpretation Comme nts NA (test code = 5189458454) 138 mmol/L 135-145 K (test code = 5154005189) 4.6 mmol/L 3.5-5.0 CL (test code = 7740788792) 105 mmol/L 98-108 CO2 TOTAL (test code = 9830476929) 28 mmol/L 23-31 AGAP (test code = 8660695965) 5 2-16 BUN (test code = 5371949209) 19 mg/dL 7-23 GLUCOSE (test code = 1677138555) 117 mg/dL 70-110 H CREATININE (test code = 2160-0) 0.91 mg/dL 0.60-1.25 TOTAL BILI (test code = 5494403360) 0.8 mg/dL 0.1-1.1 CALCIUM (test code = 7915453185) 9.2 mg/dL 8.6-10.6 T PROTEIN (test code = 2052133141) 8.4 g/dL 6.3-8.2 H ALBUMIN (test code = 3415382721) 4.4 g/dL 3.5-5.0 ALK PHOS (test code = 5506182655) 58 U/L 34-122 ALTv (test code = 1742-6) 28 U/L 5-50 AST(SGOT) (test code = 6884320796) 33 U/L 13-40 eGFR (test code = 03270-0) 102.0 mL/min/1.73m2 CKD-EPI eGFR (2020). Assuming creatinine has been stable day-to-day for at least three months, the eGFR indicates Category G1 (>= 90 mL/min/1.73 m2) Lab Interpretation (test code = 62984-1) Abnormal [facility] HarlingenLipid Panel (83501)(Total Cholesterol, Triglycerides, HDL)2024-04-02 14:58:53* Test Item Value Reference Range Interpretation Comme nts CHOL (test code = 6034106155) 190 mg/dL 120-200 HDL (test code = 7194865027) 37 mg/dL >=40 L HDLC RATIO (test code = 4180470137) 5.1 <=5.0 H TRIG (test code = 2857055751) 107 mg/dL 30-170 LDL CHOL (test code = 63569-4) 132 mg/dL <=160 VLDL (test code = 9151038229) 21 mg/dL 5-60 Lab Interpretation (test cod e = 35763-2) Abnormal [facility]enMagnesium2024-07-20 14:58:32* Test Item Value Reference Range Interpretation Comme nts MAGNESIUM (test code = 3888095497) 1.9 mg/dL 1.7-2.4 Lab Interpretation (test cod e = 04038-0) Normal [facility]enLipase2024-07-20 14:58:12* Test Item Value Reference Range Interpretation Comme nts LIPASE (test code = 5317590900) 384 U/L 0-220 H Lab Interpretation (test cod e = 22918-7) Abnormal [facility]enCbc with Fjgk2879-77-34 14:40:51* Test Item Value Reference Range Interpretation [...] 35.0 g/dL 31.2-35.0 RDW-SD (test code = 06774-0) 41.7 fL 38.5-51.6 RDW-CV (test code = 788-0) 13.3 % 12.1-15.4 PLT (test code = 777-3) 216 150-328 MPV (test code = 23718-0) 9.9 fL 9.8-13.0 NRBC/100 WBC (test code = 7189642766) 0.0 0.0-10.0 NRBC x10^3 (test code = 5609824829) See_Comment [Automated me ssage] The system which generated this result transmitted reference range: 10*3/?L. The reference range was not used to interpret this result as normal/abnormal. GRAN MAT (NEUT) % (test code = 770-8) 44.1 % IMM GRAN % (test code = 7717735718) 0.40 % LYMPH % (test code = 736-9) 45.4 % MONO % (test code = 5905-5) 8.4 % EOS % (test code = 713-8) 1.1 % BASO % (test code = 706-2) 0.6 % GRAN MAT x10^3(ANC) (test code = 8513478516) 2.31 10*3/uL 1.99-6.95 IMM GRAN x10^3 (test code = 7398673725) 0.00-0.06 LYMPH x10^3 (test code = 731-0) 2.38 10*3/uL 1.09-3.23 MONO x10^3 (test code = 742-7) 0.44 10*3/uL 0.36-1.02 EOS x10^3 (test code = 711-2) 0.06 10*3/uL 0.06-0.53 BASO x10^3 (test code = 704-7) 0.03 10*3/uL 0.01-0.09 [facility]. METABOLIC PANEL (75040)2024-02-21 03:54:20* Test Item Value Reference Range Interpretation Comme nts NA (test code = 0487338554) 137 mmol/L 135-145 K (test code = 8963831547) 3.9 mmol/L 3.5-5.0 CL (test code = 1619303264) 106 mmol/L 98-108 CO2 TOTAL (test code = 7084848329) 26 mmol/L 23-31 AGAP (test code = 7328972692) 5 2-16 BUN (test code = 4609092542) 14 mg/dL 7-23 GLUCOSE (test code = 3074028331) 128 mg/dL 70-110 H CREATININE (test code = 2160-0) 0.98 mg/dL 0.60-1.25 TOTAL BILI (test code = 7883603838) 0.5 mg/dL 0.1-1.1 CALCIUM (test code = 4242928280) 8.6 mg/dL 8.6-10.6 T PROTEIN (test code = 8400282878) 7.4 g/dL 6.3-8.2 ALBUMIN (test code = 1761537612) 4.1 g/dL 3.5-5.0 ALK PHOS (test code = 0899175845) 66 U/L 34-122 ALTv (test code = 1742-6) 25 U/L 5-50 AST(SGOT) (test code = 0480617214) 39 U/L 13-40 eGFR (test code = 12414-4) 93.4 mL/min/1.73m2 CKD-EPI eGFR (2020). Assuming creatinine has been stable day-to-day for at least three months, the eGFR indicates Category G1 (>= 90 mL/min/1.73 m2) Lab Interpretation (test code = 37515-3) Abnormal [facility]2024-06-09 03:53:40* Test Item Value Reference Range Interpretation Comme nts LIPASE (test code = 3576176429) 117 U/L 0-220 Lab Interpretation (test cod e = 93579-8) Normal [facility] WITH [id number] 03:39:58* Test Item Value Reference Range Interpretation [...] 34.8 g/dL 31.2-35.0 RDW-SD (test code = 99402-4) 40.3 fL 38.5-51.6 RDW-CV (test code = 788-0) 12.7 % 12.1-15.4 PLT (test code = 777-3) 216 150-328 MPV (test code = 89970-1) 9.6 fL 9.8-13.0 L NRBC/100 WBC (test code = 0040334229) 0.0 0.0-10.0 NRBC x10^3 (test code = 5010840806) See_Comment [Automated messa ge] The system which generated this result transmitted reference range: 10*3/?L. The reference range was not used to interpret this result as normal/abnormal. GRAN MAT (NEUT) % (test code = 770-8) 32.8 % IMM GRAN % (test code = 7734046875) 0.20 % LYMPH % (test code = 736-9) 58.5 % MONO % (test code = 5905-5) 6.6 % EOS % (test code = 713-8) 1.4 % BASO % (test code = 706-2) 0.5 % GRAN MAT x10^3(ANC) (test code = 9969318855) 1.94 10*3/uL 1.99-6.95 L IMM GRAN x10^3 (test code = 8127781523) 0.00-0.06 LYMPH x10^3 (test code = 731-0) 3.46 10*3/uL 1.09-3.23 H MONO x10^3 (test code = 742-7) 0.39 10*3/uL 0.36-1.02 EOS x10^3 (test code = 711-2) 0.08 10*3/uL 0.06-0.53 BASO x10^3 (test code = 704-7) 0.03 10*3/uL 0.01-0.09 Lab Interpretation (test code = 40078-3) Abnormal [facility] with [id number] 03:17:11* Test Item Value Reference Range Interpretation [...] 34.8 g/dL 31.2-35.0 RDW-SD (test code = 48296-2) 39.9 fL 38.5-51.6 RDW-CV (test code = 788-0) 12.7 % 12.1-15.4 PLT (test code = 777-3) 240 150-328 MPV (test code = 14296-7) 9.8 fL 9.8-13.0 NRBC/100 WBC (test code = 2103983093) 0.0 0.0-10.0 NRBC x10^3 (test code = 6509610245) See_Comment [Automated messa ge] The system which generated this result transmitted reference range: 10*3/?L. The reference range was not used to interpret this result as normal/abnormal. GRAN MAT (NEUT) % (test code = 770-8) 31.3 % IMM GRAN % (test code = 1310032184) 0.00 % LYMPH % (test code = 736-9) 57.3 % MONO % (test code = 5905-5) 9.3 % EOS % (test code = 713-8) 1.6 % BASO % (test code = 706-2) 0.5 % GRAN MAT x10^3(ANC) (test code = 1394282027) 1.94 10*3/uL 1.99-6.95 L IMM GRAN x10^3 (test code = 1392240881) 0.00-0.06 LYMPH x10^3 (test code = 731-0) 3.56 10*3/uL 1.09-3.23 H MONO x10^3 (test code = 742-7) 0.58 10*3/uL 0.36-1.02 EOS x10^3 (test code = 711-2) 0.10 10*3/uL 0.06-0.53 BASO x10^3 (test code = 704-7) 0.03 10*3/uL 0.01-0.09 Lab Interpretation (test code = 81295-8) Abnormal [facility]. Metabolic Panel (47630)2023-12-10 03:13:49* Test Item Value Reference Range Interpretation Comme nts NA (test code = 7776384537) 141 mmol/L 135-145 K (test code = 3806682788) 4.3 mmol/L 3.5-5.0 CL (test code = 5113628418) 107 mmol/L 98-108 CO2 TOTAL (test code = 4698713206) 26 mmol/L 23-31 AGAP (test code = 8922847364) 8 2-16 BUN (test code = 7528747429) 20 mg/dL 7-23 GLUCOSE (test code = 8467448939) 123 mg/dL 70-110 H CREATININE (test code = 2160-0) 0.95 mg/dL 0.60-1.25 TOTAL BILI (test code = 2450034144) 0.8 mg/dL 0.1-1.1 CALCIUM (test code = 0275774526) 9.0 mg/dL 8.6-10.6 T PROTEIN (test code = 5498797379) 8.4 g/dL 6.3-8.2 H ALBUMIN (test code = 9494831140) 4.3 g/dL 3.5-5.0 ALK PHOS (test code = 7917529857) 58 U/L 34-122 ALTv (test code = 1742-6) 33 U/L 5-50 AST(SGOT) (test code = 9077912345) 52 U/L 13-40 H eGFR (test code = 64615-1) 96.9 mL/min/1.73m2 CKD-EPI eGFR (2020). Assuming creatinine has been stable day-to-day for at least three months, the eGFR indicates Category G1 (>= 90 mL/min/1.73 m2) Lab Interpretation (test code = 96503-6) [facility] [id number] 03:12:08CT ABDOMEN PELVIS W CONTRAST HISTORY: 53 [...] TISSUES: No suspicious lytic or sclerotic bony lesions.[facility] [place] BASIC METABOLIC PANEL (NA, K, CL, CO2, GLUCOSE, BUN, CREATININE, CA)2023-08-04 03:27:21* Test Item Value Reference Range Interpretation Comme nts NA (test code = 7170059523) 140 mmol/L 135-145 K (test code = 2996434045) 3.9 mmol/L 3.5-5.0 CL (test code = 0531127105) 104 mmol/L 98-108 CO2 TOTAL (test code = 0730931751) 28 mmol/L 23-31 AGAP (test code = 0951085381) 8 2-16 BUN (test code = 6197515677) 15 mg/dL 7-23 GLUCOSE (test code = 6969508814) 155 mg/dL 70-110 H CREATININE (test code = 5035797227) 1.37 mg/dL 0.60-1.25 H CALCIUM (test code = 7487207104) 9.5 mg/dL 8.6-10.6 eGFR (test code = 45098-3) 62.8 mL/min/1.73m2 CKD-EPI eGFR (2020). Assuming creatinine has been stable day-to-day for at least three months, the eGFR indicates Category G2 (60 - 89 mL/min/1.73 m2) Lab Interpretation (test code = 95092-3) Abnormal [facility] WITH [id number] 03:12:39* Test Item Value Reference Range Interpretation Comme nts WBC (test code = 6690-2) 6.98 See_Comment [Automated [employer] ge] The system which generated this result transmitted reference range: 4.20 - 10.70 10*3/?L. The reference range was not used to interpret this result as normal/abnormal. RBC (test code = 789-8) 5.27 See_Comment [Automated [employer] ge] The system which generated this result [...] g/dL 31.2-35.0 H RDW-SD (test code = 22618-4) 38.1 fL 38.5-51.6 L RDW-CV (test code = 788-0) 12.3 % 12.1-15.4 PLT (test code = 777-3) 238 See_Comment [Automated [employer] ge] The system which generated this result transmitted reference range: 150 - 328 10*3/?L. The reference range was not used to interpret this result as normal/abnormal. MPV (test code = 29111-1) 9.8 fL 9.8-13.0 NRBC/100 WBC (test code = 8771830539) 0.0 See_Comment [Automated [employer]age] The system which generated this result transmitted reference range: 0.0 - 10.0 /100 WBCs. The reference range was not used to interpret this result as normal/abnormal. NRBC x10^3 (test code = 3640303991) See_Comment [Automated [employer] ge] The system which generated this result transmitted reference range: 10*3/?L. The reference range was not used to interpret this result as normal/abnormal. GRAN MAT (NEUT) % (test code = 770-8) 37.8 % IMM GRAN % (test code = 9065057632) 0.30 % LYMPH % (test code = 736-9) 52.7 % MONO % (test code = 5905-5) 7.7 % EOS % (test code = 713-8) 1.1 % BASO % (test code = 706-2) 0.4 % GRAN MAT x10^3(ANC) (test code = 9713059266) 2.63 10*3/uL 1.99-6.95 IMM GRAN x10^3 (test code = 2447340494) 0.00-0.06 LYMPH x10^3 (test code = 731-0) 3.68 10*3/uL 1.09-3.23 H MONO x10^3 (test code = 742-7) 0.54 10*3/uL 0.36-1.02 EOS x10^3 (test code = 711-2) 0.08 10*3/uL 0.06-0.53 BASO x10^3 (test code = 704-7) 0.03 10*3/uL 0.01-0.09 Lab Interpretation (test code = 48101-6) [facility] [id number] 17:24:34* Test Item Value Reference Range Interpretation Comme nts TROPONIN I (test code = 2127710845) 0.018 ng/mL <=0.034 KRYSTLE (test code = [...] of biotin. Lab Interpretation (test code = 79668-0) [facility]2023-[facility]-11 17:13:15* Test Item Value Reference Range Interpretation Comme nts MAGNESIUM (test code = 0257367302) 1.9 mg/dL 1.7-2.4 Lab Interpretation (test cod e = 01816-5) [facility]OLIC PANEL (84790)2023-07-25 17:12:55* Test Item Value Reference Range Interpretation Comme nts NA (test code = 5897901559) 141 mmol/L 135-145 K (test code = 3749500273) 3.8 mmol/L 3.5-5.0 CL (test code = 3593243655) 106 mmol/L 98-108 CO2 TOTAL (test code = 9867343157) 27 mmol/L 23-31 AGAP (test code = 3474574870) 8 2-16 BUN (test code = 1968554429) 14 mg/dL 7-23 GLUCOSE (test code = 2164797738) 124 mg/dL 70-110 H CREATININE (test code = 4896899732) 0.93 mg/dL 0.60-1.25 TOTAL BILI (test code = 1642544187) 0.8 mg/dL 0.1-1.1 CALCIUM (test code = 6273750229) 9.3 mg/dL 8.6-10.6 T PROTEIN (test code = 1434329742) 8.2 g/dL 6.3-8.2 ALBUMIN (test code = 1125808203) 4.4 g/dL 3.5-5.0 ALK PHOS (test code = 7111396453) 49 U/L 34-122 ALTv (test code = 1742-6) 20 U/L 5-50 AST(SGOT) (test code = 6542975521) 28 U/L 13-40 eGFR (test code = 55219-9) 100.0 mL/min/1.73m2 CKD-EPI eGFR (2020). Assuming creatinine has been stable day-to-day for at least three months, the eGFR indicates Category G1 (>= 90 mL/min/1.73 m2) Lab Interpretation (test code = 51791-2) [facility]23-[facility]-11 17:12:35* Test Item Value Reference Range Interpretation Comme nts LIPASE (test code = 4361113682) 109 U/L 0-220 Lab Interpretation (test cod e = 49777-1) [facility] WITH [id number] 16:59:59* Test Item Value Reference Range Interpretation Comme nts WBC (test code = 6690-2) 5.17 See_Comment [Automated [employer] ge] The system which generated this result transmitted reference range: 4.20 - 10.70 10*3/?L. The reference range was not used to interpret this result as normal/abnormal. RBC (test code = 789-8) 5.04 See_Comment [Automated [employer] ge] The system which generated this result [...] g/dL 31.2-35.0 H RDW-SD (test code = 32890-0) 39.2 fL 38.5-51.6 RDW-CV (test code = 788-0) 12.5 % 12.1-15.4 PLT (test code = 777-3) 207 See_Comment [Automated [employer]] The system which generated this result transmitted reference range: 150 - 328 10*3/?L. The reference range was not used to interpret this result as normal/abnormal. MPV (test code = 79046-3) 10.0 fL 9.8-13.0 NRBC/100 WBC (test code = 2158936439) 0.0 See_Comment [Automated [employer]] The system which generated this result transmitted reference range: 0.0 - 10.0 /100 WBCs. The reference range was not used to interpret this result as normal/abnormal. NRBC x10^3 (test code = 4181259324) See_Comment [Automated [employer] ge] The system which generated this result transmitted reference range: 10*3/?L. The reference range was not used to interpret this result as normal/abnormal. GRAN MAT (NEUT) % (test code = 770-8) 45.8 % IMM GRAN % (test code = 5004777846) 0.20 % LYMPH % (test code = 736-9) 42.9 % MONO % (test code = 5905-5) 9.9 % EOS % (test code = 713-8) 0.8 % BASO % (test code = 706-2) 0.4 % GRAN MAT x10^3(ANC) (test code = 9720041018) 2.37 10*3/uL 1.99-6.95 IMM GRAN x10^3 (test code = 6078799485) 0.00-0.06 LYMPH x10^3 (test code = 731-0) 2.22 10*3/uL 1.09-3.23 MONO x10^3 (test code = 742-7) 0.51 10*3/uL 0.36-1.02 EOS x10^3 (test code = 711-2) 0.04 10*3/uL 0.06-0.53 L BASO x10^3 (test code = 704-7) 0.01-0.09 Lab Interpretation (test code = 68423-6) [facility]enLIPID PANEL (26835)(TOTAL CHOLESTEROL, TRIGLYCERIDES, HDL)2023-07-24 21:48:18* Test Item Value Reference Range Interpretation Comme nts CHOL (test code = 4236116832) 220 mg/dL 120-200 H HDL (test code = 0886132461) 31 mg/dL >=40 L HDLC RATIO (test code = 7072473526) 7.1 <=5.0 H TRIG (test code = 0252914357) 134 mg/dL 30-170 LDL CHOL (test code = 81165-4) 162 mg/dL <=160 H VLDL (test code = 8346422381) 27 mg/dL 5-60 Lab Interpretation (test cod e = 30760-6) [facility]enComplete Metabolic Urast5985-43-52 20:48:07* Test Item Value Reference Range Interpretation Comme nts NA (test code = 1167923533) 141 mmol/L 135-145 K (test code = 9014521271) 3.8 mmol/L 3.5-5.0 CL (test code = 8508694894) 103 mmol/L 98-108 CO2 TOTAL (test code = 0301470204) 29 mmol/L 23-31 AGAP (test code = 7021926318) 9 2-16 BUN (test code = 2959395876) 14 mg/dL 7-23 GLUCOSE (test code = 4785971902) 102 mg/dL 70-110 CREATININE (test code = 4589115270) 0.85 mg/dL 0.60-1.25 TOTAL BILI (test code = 5874485954) 1.2 mg/dL 0.1-1.1 H CALCIUM (test code = 3751840841) 10.0 mg/dL 8.6-10.6 T PROTEIN (test code = 2817753861) 8.9 g/dL 6.3-8.2 H ALBUMIN (test code = 6738090262) 5.0 g/dL 3.5-5.0 ALK PHOS (test code = 7029479987) 52 U/L 34-122 ALTv (test code = 1742-6) 22 U/L 5-50 AST(SGOT) (test code = 3471364819) 45 U/L 13-40 H eGFR (test code = 94303-9) 105.9 mL/min/1.73m2 CKD-EPI eGFR (2020). Assuming creatinine has been stable day-to-day for at least three months, the eGFR indicates Category G1 (>= 90 mL/min/1.73 m2) Lab Interpretation (test code = 64568-0) [facility]en[facility], [id number] 20:48:07* Test Item Value Reference Range Interpretation Comme nts LIPASE (test code = 7559082306) 134 U/L 0-220 Lab Interpretation (test cod e = 13144-0) [facility] with Kluhbndhrkkw3919-11-47 20:20:02* Test Item Value Reference Range Interpretation Comme nts WBC (test code = 6690-2) 6.91 See_Comment [Automated [employer]] The system which generated this result transmitted reference range: 4.20 - 10.70 10*3/?L. The reference range was not used to interpret this result as normal/abnormal. RBC (test code = 789-8) 5.49 See_Comment [Automated [employer] ge] The system which generated this result [...] 34.7 g/dL 31.2-35.0 RDW-SD (test code = 68446-8) 40.0 fL 38.5-51.6 RDW-CV (test code = 788-0) 12.7 % 12.1-15.4 PLT (test code = 777-3) 228 See_Comment [Automated mess[employer] ge] The system which generated this result transmitted reference range: 150 - 328 10*3/?L. The reference range was not used to interpret this result as normal/abnormal. MPV (test code = 37922-7) 9.5 fL 9.8-13.0 L NRBC/100 WBC (test code = 0551042925) 0.0 See_Comment [Automated [employer]] The system which generated this result transmitted reference range: 0.0 - 10.0 /100 WBCs. The reference range was not used to interpret this result as normal/abnormal. NRBC x10^3 (test code = 5225589242) See_Comment [Automated [employer] ge] The system which generated this result transmitted reference range: 10*3/?L. The reference range was not used to interpret this result as normal/abnormal. GRAN MAT (NEUT) % (test code = 770-8) 46.9 % IMM GRAN % (test code = 9406426663) 0.30 % LYMPH % (test code = 736-9) 42.3 % MONO % (test code = 5905-5) 9.8 % EOS % (test code = 713-8) 0.4 % BASO % (test code = 706-2) 0.3 % GRAN MAT x10^3(ANC) (test code = 9695881938) 3.24 10*3/uL 1.99-6.95 IMM GRAN x10^3 (test code = 7863369050) 0.00-0.06 LYMPH x10^3 (test code = 731-0) 2.92 10*3/uL 1.09-3.23 MONO x10^3 (test code = 742-7) 0.68 10*3/uL 0.36-1.02 EOS x10^3 (test code = 711-2) 0.03 10*3/uL 0.06-0.53 L BASO x10^3 (test code = 704-7) 0.01-0.09 Lab Interpretation (test code = 17052-8) [facility]normal [facility] W/SLCZ2453-53-47 08:28:00 [facility] 1970 Sex: M PatientName: NOAH PUTNAM Unit No: [id number] EXAMS: CPT CODE: [id number] CT ABD PELVIS W/CONT 70658 EXAM: - CT ABD PELVIS W/CONT INDICATION: [...] extraluminal fluid. IMPRESSION: 1. No acute abnormality. [facility] NAME: NOAH PUTNAM PHYS: HOMERO Espinosa Paul,[place] [address] : 1970 AGE: 52 SEX: M LOC: [employer] PHONE #: [phone] EXAM DATE: 07/23/2023 STATUS: REG ER FAX #: [phone] RAD #: D/C DT PAGE 1 Signed Report (CONTINUED) Patient Name: NOAH PUTNAM Unit No: [id number] EXAMS: CPT CODE: [id number] CT ABD PELVIS W/CONT 12987 (Continued) at 0828 Reported and signedby: Kiara Meza MD CC: Jessie Paul MD Technologist: Jovanni GREEN CTDI: DLP: Trnscrpt: 07/23/2023 (0828) t.SDR.CB5 [facility] Ji NAME: NOAH PUTNAM PHYS: HOMERO [place] [address] : 1970 AGE: 52 SEX: M LOC: [facility] PHONE #: [phone] EXAM DATE: 07/23/2023 STATUS: REG ER FAX #: [phone] RAD #: D/C DT PAGE 2 Signed Report Patient Name: NOAH PUTNAM Unit No: [id number] EXAMS: CPT CODE: [id number] CT ABD PELVIS W/CONT 63291 (Continued) Orig Print D/T: S: 07/23/2023 (0831) [facility] NAME: NOAH PUTNAMmond PHYS: [email or web address].09 - [place] [address] : 1970 AGE: 52 SEX: M LOC: [facility] PHONE #: [phone] EXAM DATE: 07/23/2023 STATUS: REG ER FAX #: [phone] RAD #: D/C DT PAGE 3 Signed ReportURINALYSIS KISSKNAM3669-89-18 06:32:00* Test Item Value Reference Range Interpretation [...] /mm3 NEGATIVE SOURCE OF URINE: CLEAN CATCHUA EVGGDUGNMUL2758-08-21 06:32:00* Test Item Value Reference Range Interpretation Comme nts UA RBC (test code = RBCU) 3-5 RBC/HPF 0-3 A UA WBC (test code = XWBCU) 0-3 WBC/HPF 0-5 UA EPITHELIAL CELLS (test co de = EPIU) RARE EPI/HPF FEW UA BACTERIA (test code = XBACU) FEW NONE UA MUCUS (test code = MUCU) MODERATE #/LPF NONE A SOURCE OF URINE: CLEAN CATCHBASIC METABOLIC [id number] 06:31:00* Test Item Value Reference Range Interpretation [...] CA) 9.5 MG/DL 8.4-10.2 N HEPATIC FUNCTION [id number] 06:31:00* Test Item Value Reference Range Interpretation Comme nts TOTAL PROTEIN (test code = PROT) 9.0 G/DL 6.2-7.6 H Ortho Clinical D iagnostic has made us aware of newinformation regarding the potential interference ofEltrombopag (a bone marrow stimulant used to treatthrombocytonmenia and aplastic anemia) with specific assayson the [employer] of which Total Protein is one of thoseassays performed in our lab.Interference testing performed at [facility] determined thatEltrombopag does interfere with Vitros Total [...] code = ALKP) 57 UNITS/L 38-126 N [id number] 06:31:00* Test Item Value Reference Range Interpretation Comme nts LIPASE (test code = LIP) 94 UNITS/L 23-300 N [id number]-[id number] 06:31:00* Test Item Value Reference Range Interpretation Comme nts TROPONIN-I (test code = TROPI) 0.019 NG/ML 0.012-0.033 N PROTHROMBIN [id number] 06:07:00* Test Item Value Reference Range Interpretation [...] systemic embolism. 3.0 - 4.5 CBC W/O [id number] 06:00:00* Test Item Value Reference Range Interpretation [...] = NRBC#) 0.00 K/mm3 0.0-0.1 N Troponin [id number] 02:46:51* Test Item Value Reference Range Interpretation Comme nts TROPONIN I (test code = 0944046627) 0.017 ng/mL <=0.034 KRYSTLE (test code = [...] of biotin. Lab Interpretation (test code = 25114-5) [facility]enCMP2023-10-29 02:35:28* Test Item Value Reference Range Interpretation Comme nts NA (test code = 1765862229) 138 mmol/L 135-145 K (test code = 6608580036) 3.7 mmol/L 3.5-5.0 CL (test code = 3118701495) 106 mmol/L 98-108 CO2 TOTAL (test code = 8152230093) 24 mmol/L 23-31 AGAP (test code = 4034657990) 8 2-16 BUN (test code = 8255355860) 11 mg/dL 7-23 GLUCOSE (test code = 4513874467) 165 mg/dL 70-110 H CREATININE (test code = 7635866078) 0.89 mg/dL 0.60-1.25 TOTAL BILI (test code = 8519268308) 0.2 mg/dL 0.1-1.1 CALCIUM (test code = 8672228612) 9.3 mg/dL 8.6-10.6 T PROTEIN (test code = 0752853988) 7.0 g/dL 6.3-8.2 ALBUMIN (test code = 2204215621) 4.0 g/dL 3.5-5.0 ALK PHOS (test code = 1645400361) 59 U/L 34-122 ALTv (test code = 1742-6) 23 U/L 5-50 AST(SGOT) (test code = 1518473911) 27 U/L 13-40 eGFR (test code = 9549248463) 90.5 mL/min/1.73m2 KRYSTEL (test code = KRYSTLE) Association of Glomerular [...] imaging tests). Lab Interpretation (test code = 43216-7) Abnormal [facility] with [id number] 02:26:10* Test Item Value Reference Range Interpretation Comme nts WBC (test code = 6690-2) 5.78 See_Comment [Automated [employer]] The system which generated this result transmitted reference range: 4.20 - 10.70 10*3/?L. The reference range was not used to interpret this result as normal/abnormal. RBC (test code = 789-8) 4.59 See_Comment [Automated [employer] ge] The system which generated this result [...] g/dL 31.2-35.0 H RDW-SD (test code = 38031-4) 38.6 fL 38.5-51.6 RDW-CV (test code = 788-0) 12.6 % 12.1-15.4 PLT (test code = 777-3) 200 See_Comment [Automated [employer] ge] The system which generated this result transmitted reference range: 150 - 328 10*3/?L. The reference range was not used to interpret this result as normal/abnormal. MPV (test code = 36379-2) 9.6 fL 9.8-13.0 L NRBC/100 WBC (test code = 5683103755) 0.0 See_Comment [Automated [employer]] The system which generated this result transmitted reference range: 0.0 - 10.0 /100 WBCs. The reference range was not used to interpret this result as normal/abnormal. NRBC x10^3 (test code = 8291706725) See_Comment [Automated [employer] ge] The system which generated this result transmitted reference range: 10*3/?L. The reference range was not used to interpret this result as normal/abnormal. GRAN MAT (NEUT) % (test code = 770-8) 36.8 % IMM GRAN % (test code = 2880898796) 0.20 % LYMPH % (test code = 736-9) 54.7 % MONO % (test code = 5905-5) 7.1 % EOS % (test code = 713-8) 0.9 % BASO % (test code = 706-2) 0.3 % GRAN MAT x10^3(ANC) (test code = 1638462457) 2.13 10*3/uL 1.99-6.95 IMM GRAN x10^3 (test code = 1105819711) 0.00-0.06 LYMPH x10^3 (test code = 731-0) 3.16 10*3/uL 1.09-3.23 MONO x10^3 (test code = 742-7) 0.41 10*3/uL 0.36-1.02 EOS x10^3 (test code = 711-2) 0.05 10*3/uL 0.06-0.53 L BASO x10^3 (test code = 704-7) 0.01-0.09 Lab Interpretation (test code = 54294-7) [facility]enCOMP. METABOLIC PANEL (38273)2023-07-03 10:47:01* Test Item Value Reference Range Interpretation Comme nts NA (test code = 5442381998) 138 mmol/L 135-145 K (test code = 1908714622) 4.5 mmol/L 3.5-5.0 Slight hemolysis CL (test code = 9117514677) 103 mmol/L 98-108 CO2 TOTAL (test code = 0832760656) 23 mmol/L 23-31 AGAP (test code = 4498116384) 12 2-16 BUN (test code = 1189412677) 16 mg/dL 7-23 Slight hemolysis GLUCOSE (test code = 7964388425) 142 mg/dL 70-110 H CREATININE (test code = 6183862485) 0.99 mg/dL 0.60-1.25 TOTAL BILI (test code = 6173803642) 1.2 mg/dL 0.1-1.1 H CALCIUM (test code = 7122529654) 9.6 mg/dL 8.6-10.6 T PROTEIN (test code = 6875751495) 8.1 g/dL 6.3-8.2 ALBUMIN (test code = 6389161795) 4.6 g/dL 3.5-5.0 ALK PHOS (test code = 1431240958) 51 U/L 34-122 Slight hemolysis ALTv (test code = 1742-6) 26 U/L 5-50 AST(SGOT) (test code = 3369930530) 32 U/L 13-40 Slight hemolysis eGFR (test code = 5355681541) 80.0 mL/min/1.73m2 KRYSTLE (test code = KRYSTLE) [...] imaging tests). Lab Interpretation (test code = 72628-2) [facility]2023-[facility]-20 10:47:01* Test Item Value Reference Range Interpretation Comme nts LIPASE (test code = 9780630326) 955 U/L 0-220 H Lab Interpretation (test cod e = 97274-8) [facility]normal [facility]enCBC WITH [id number] 10:27:34* Test Item Value Reference Range Interpretation [...] 34.5 g/dL 31.2-35.0 RDW-SD (test code = 28169-2) 39.4 fL 38.5-51.6 RDW-CV (test code = 788-0) 12.3 % 12.1-15.4 PLT (test code = 777-3) 226 See_Comment [Automated [employer]] The system which generated this result transmitted reference range: 150 - 328 10*3/?L. The reference range was not used to interpret this result as normal/abnormal. MPV (test code = 43848-0) 9.6 fL 9.8-13.0 L NRBC/100 WBC (test code = 1555681543) 0.0 See_Comment [Automated [employer]] The system which generated this result transmitted reference range: 0.0 - 10.0 /100 WBCs. The reference range was not used to interpret this result as normal/abnormal. NRBC x10^3 (test code = 1176845967) See_Comment [Automated [employer]] The system which generated this result transmitted reference range: 10*3/?L. The reference range was not used to interpret this result as normal/abnormal. GRAN MAT (NEUT) % (test code = 770-8) 54.9 % IMM GRAN % (test code = 8710099940) 0.20 % LYMPH % (test code = 736-9) 36.2 % MONO % (test code = 5905-5) 7.9 % EOS % (test code = 713-8) 0.5 % BASO % (test code = 706-2) 0.3 % GRAN MAT x10^3(ANC) (test code = 5351441416) 3.63 10*3/uL 1.99-6.95 IMM GRAN x10^3 (test code = 4043976518) 0.00-0.06 LYMPH x10^3 (test code = 731-0) 2.39 10*3/uL 1.09-3.23 MONO x10^3 (test code = 742-7) 0.52 10*3/uL 0.36-1.02 EOS x10^3 (test code = 711-2) 0.03 10*3/uL 0.06-0.53 L BASO x10^3 (test code = 704-7) 0.01-0.09 Lab Interpretation (test code = 03679-7) Abnormal [facility] PELVIS W/JUOW3970-00-94 00:06:00 [facility] 1970 Sex: M Patient Name: NOAH PUTNAM Unit No: [id number] EXAMS: CPT CODE: [id number] CT ABD PELVIS W/CONT 33739 Reason: diffuse abd pain CT Scan of [...] Jennifer Bass MD CC: Jessie Gleason DO; [facility] Technologist: Cory Romero CT Trscrpt Dt/ (5)t.SDR.MA50 Orig Print D/T: S: 07/02/2023 (000) CTDI: DLP: [place] FSED NAME: NOAH PUTNAM [address] [place] [address] PHYS: Jessie Gleason [address] : 1970 AGE: 52 SEX: M [place], [place] [address] LOC: D.PER PHONE #: [phone] EXAM DATE: 07/01/2023 STATUS: REG ER FAX #: RAD NO: DCDt: PAGE 1 Signed ReportBASIC METABOLIC [id number] 23:55:00* Test Item Value Reference Range Interpretation [...] CA) 9.3 MG/DL 8.7-10.5 N HEPATIC FUNCTION [id number] 23:55:00* Test Item Value Reference Range Interpretation [...] code = ALKP) 60 Units/L 50-136 N [id number] 23:55:00* Test Item Value Reference Range Interpretation Comme nts LIPASE (test code = LIP) 259 U/L 16-77 H New Reference Ranges of 16-77 U/L please reviewrevised from 73-393 U/L on 06/30/2023 TROP-I HIGH [id number] 23:55:00* Test Item Value Reference Range Interpretation [...] troponin from other clinical conditions, the Fourth [place] Definition of Myocardial Infarction stresses clinical assessment and demonstration of a rise and/or fall in serial troponin results above the upper reference limit.Results of this assay method may be falsely depressed orelevated if patient is taking high doses of Biotin. CBC W/AUTO [id number] 23:24:00* Test Item Value Reference Range Interpretation [...] = BA#) 0.02 x10 3/uL 0.0-0.2 N [id number] 12:29:00* Test Item Value Reference Range Interpretation Comme [facility] LIPASE (test code = LIP) 73 Units/L 73-393 N [id number] 17:24:56* Test Item Value Reference Range Interpretation Comme [facility] LIPASE (test code = 1532474385) 283 U/L 0-220 H Lab Interpretation (test cod e = 30827-9) Abnormal [facility] METABOLIC PANEL (NA, K, CL, CO2, GLUCOSE, BUN, CREATININE, CA)2023-04-22 17:24:35* Test Item Value Reference Range Interpretation Comme [facility] NA (test code = 7807433022) 139 mmol/L 135-145 K (test code = 0384472216) 4.0 mmol/L 3.5-5.0 CL (test code = 6286087178) 106 mmol/L 98-108 CO2 TOTAL (test code = 8106452371) 25 mmol/L 23-31 AGAP (test code = 3585765290) 8 2-16 BUN (test code = 6683433144) 21 mg/dL 7-23 GLUCOSE (test code = 8813911209) 110 mg/dL 70-110 CREATININE (test code = 2052868849) 1.06 mg/dL 0.60-1.25 CALCIUM (test code = 9318750429) 8.1 mg/dL 8.6-10.6 L eGFR (test code = 4822620077) 74.0 mL/min/1.73m2 KRYSTLE (test code = KRYSTLE) [...] imaging tests). Lab Interpretation (test code = 59841-8) [id number] 13:57:28* Test Item Value Reference Range Interpretation Comme nts CK (test code = 0308390271) 635 U/L 33-194 H Lab Interpretation (test cod e = 94490-0) [facility] (NA, K, CL, CO2, GLUCOSE, BUN, CREATININE, CA)2023-04-22 13:23:02* Test Item Value Reference Range Interpretation Comme nts NA (test code = 4348318426) 141 mmol/L 135-145 K (test code = 4943042998) 4.0 mmol/L 3.5-5.0 CL (test code = 8974396454) 107 mmol/L 98-108 CO2 TOTAL (test code = 1795177442) 27 mmol/L 23-31 AGAP (test code = 8752494938) 7 2-16 BUN (test code = 5995068081) 22 mg/dL 7-23 GLUCOSE (test code = 6046129756) 94 mg/dL 70-110 CREATININE (test code = 2051307398) 1.26 mg/dL 0.60-1.25 H CALCIUM (test code = 2284460285) 8.3 mg/dL 8.6-10.6 L eGFR (test code = 3276709217) 60.6 mL/min/1.73m2 KRYSTLE (test code = KRYSTLE) [...] imaging tests). Lab Interpretation (test code = 68945-0) [facility] 13:22:41* Test Item Value Reference Range Interpretation Comme nts LIPASE (test code = 5655600904) 897 U/L 0-220 H Lab Interpretation (test cod e = 04003-5) [facility] (70286)2023-04-22 09:43:42* Test Item Value Reference Range Interpretation Comme nts NA (test code = 5814717164) 140 mmol/L 135-145 K (test code = 2138846039) 3.7 mmol/L 3.5-5.0 CL (test code = 1488339767) 103 mmol/L 98-108 CO2 TOTAL (test code = 5708722106) 24 mmol/L 23-31 AGAP (test code = 0842084310) 13 2-16 BUN (test code = 7804656834) 24 mg/dL 7-23 H GLUCOSE (test code = 1945009575) 114 mg/dL 70-110 H CREATININE (test code = 3959738814) 1.42 mg/dL 0.60-1.25 H TOTAL BILI (test code = 5686478194) 0.9 mg/dL 0.1-1.1 CALCIUM (test code = 3005598726) 9.5 mg/dL 8.6-10.6 T PROTEIN (test code = 8199667777) 9.2 g/dL 6.3-8.2 H ALBUMIN (test code = 4520763247) 4.9 g/dL 3.5-5.0 ALK PHOS (test code = 6566578039) 66 U/L 34-122 ALTv (test code = 1742-6) 25 U/L 5-50 AST(SGOT) (test code = 1250168281) 37 U/L 13-40 eGFR (test code = 8082354459) 52.8 mL/min/1.73m2 KRYSTLE (test code = KRYSTLE) [...] imaging tests). Lab Interpretation (test code = 56229-9) Abnormal [facility] WITH [id number] 09:33:37* Test Item Value Reference Range Interpretation Comme nts WBC (test code = 6690-2) 8.53 See_Comment [Automated [employer]] The system which generated this result transmitted reference range: 4.20 - 10.70 10*3/?L. The reference range was not used to interpret this result as normal/abnormal. RBC (test code = 789-8) 5.60 See_Comment H [Automated [employer]] The system which generated this result transmitted [...] g/dL 31.2-35.0 H RDW-SD (test code = 62605-1) 40.1 fL 38.5-51.6 RDW-CV (test code = 788-0) 13.0 % 12.1-15.4 PLT (test code = 777-3) 267 See_Comment [Automated messa ge] The system which generated this result transmitted reference range: 150 - 328 10*3/?L. The reference range was not used to interpret this result as normal/abnormal. MPV (test code = 38474-0) 9.6 fL 9.8-13.0 L NRBC/100 WBC (test code = 5257353489) 0.0 See_Comment [Automated [employer]] The system which generated this result transmitted reference range: 0.0 - 10.0 /100 WBCs. The reference range was not used to interpret this result as normal/abnormal. NRBC x10^3 (test code = 0796660737) See_Comment [Automated messa ge] The system which generated this result transmitted reference range: 10*3/?L. The reference range was not used to interpret this result as normal/abnormal. GRAN MAT (NEUT) % (test code = 770-8) 44.5 % IMM GRAN % (test code = 0980209342) 0.20 % LYMPH % (test code = 736-9) 43.4 % MONO % (test code = 5905-5) 10.7 % EOS % (test code = 713-8) 0.8 % BASO % (test code = 706-2) 0.4 % GRAN MAT x10^3(ANC) (test code = 7665963131) 3.80 10*3/uL 1.99-6.95 IMM GRAN x10^3 (test code = 4098154455) 0.00-0.06 LYMPH x10^3 (test code = 731-0) 3.70 10*3/uL 1.09-3.23 H MONO x10^3 (test code = 742-7) 0.91 10*3/uL 0.36-1.02 EOS x10^3 (test code = 711-2) 0.07 10*3/uL 0.06-0.53 BASO x10^3 (test code = 704-7) 0.03 10*3/uL 0.01-0.09 Lab Interpretation (test code = 23713-1) Abnormal [facility] [id number] 13:23:31* Test Item Value Reference Range Interpretation Comme nts TROPONIN I (test code = 8665947190) 0.020 ng/mL <=0.034 KRYSTLE (test code = [...] of biotin. Lab Interpretation (test code = 45878-0) Normal [facility] [id number] 13:23:31* Test Item Value Reference Range Interpretation Comme nts TROPONIN I (test code = 3612391450) 0.020 ng/mL <=0.034 KRYSTLE (test code = [...] of biotin. Lab Interpretation (test code = 41790-4) Normal [facility]. METABOLIC PANEL (28469)2023-04-16 12:58:04* Test Item Value Reference Range Interpretation Comme nts NA (test code = 0180432302) 142 mmol/L 135-145 K (test code = 9514174130) 4.0 mmol/L 3.5-5.0 CL (test code = 4706744543) 105 mmol/L 98-108 CO2 TOTAL (test code = 0532042706) 28 mmol/L 23-31 AGAP (test code = 7660845136) 9 2-16 BUN (test code = 8309289936) 11 mg/dL 7-23 GLUCOSE (test code = 2723068275) 115 mg/dL 70-110 H CREATININE (test code = 2886704067) 0.85 mg/dL 0.60-1.25 TOTAL BILI (test code = 7465700975) 0.4 mg/dL 0.1-1.1 CALCIUM (test code = 1009648293) 9.2 mg/dL 8.6-10.6 T PROTEIN (test code = 2425866700) 7.6 g/dL 6.3-8.2 ALBUMIN (test code = 9297736783) 4.4 g/dL 3.5-5.0 ALK PHOS (test code = 6712826375) 52 U/L 34-122 ALTv (test code = 1742-6) 23 U/L 5-50 AST(SGOT) (test code = 7260451673) 33 U/L 13-40 eGFR (test code = 2632397645) 95.4 mL/min/1.73m2 KRYSTLE (test code = KRYSTLE) [...] imaging tests). Lab Interpretation (test code = 17073-1) [facility] 12:58:[facility]* Test Item Value Reference Range Interpretation Comme nts LIPASE (test code = 7643437095) 492 U/L 0-220 H Lab Interpretation (test cod e = 35135-5) [facility] (52164)2023-04-16 12:58:04* Test Item Value Reference Range Interpretation Comme nts NA (test code = 3116753609) 142 mmol/L 135-145 K (test code = 9726242688) 4.0 mmol/L 3.5-5.0 CL (test code = 4781127639) 105 mmol/L 98-108 CO2 TOTAL (test code = 9380370790) 28 mmol/L 23-31 AGAP (test code = 8567654084) 9 2-16 BUN (test code = 7071778680) 11 mg/dL 7-23 GLUCOSE (test code = 7165176558) 115 mg/dL 70-110 H CREATININE (test code = 3686767248) 0.85 mg/dL 0.60-1.25 TOTAL BILI (test code = 4623193686) 0.4 mg/dL 0.1-1.1 CALCIUM (test code = 8246287460) 9.2 mg/dL 8.6-10.6 T PROTEIN (test code = 5487144761) 7.6 g/dL 6.3-8.2 ALBUMIN (test code = 8336378733) 4.4 g/dL 3.5-5.0 ALK PHOS (test code = 2007305950) 52 U/L 34-122 ALTv (test code = 1742-6) 23 U/L 5-50 AST(SGOT) (test code = 0001667576) 33 U/L 13-40 eGFR (test code = 5743257722) 95.4 mL/min/1.73m2 KRYSTLE (test code = KRYSTLE) [...] imaging tests). Lab Interpretation (test code = 49291-8) [facility] 12:58:04* Test Item Value Reference Range Interpretation Comme nts LIPASE (test code = 8302353902) 492 U/L 0-220 H Lab Interpretation (test cod e = 30809-6) [facility] [id number] 12:50:01* Test Item Value Reference Range Interpretation [...] 34.9 g/dL 31.2-35.0 RDW-SD (test code = 16434-6) 41.4 fL 38.5-51.6 RDW-CV (test code = 788-0) 13.2 % 12.1-15.4 PLT (test code = 777-3) 219 See_Comment [Automated [employer]] The system which generated this result transmitted reference range: 150 - 328 10*3/?L. The reference range was not used to interpret this result as normal/abnormal. MPV (test code = 86257-5) 9.5 fL 9.8-13.0 L NRBC/100 WBC (test code = 0800509769) 0.0 See_Comment [Automated [employer]] The system which generated this result transmitted reference range: 0.0 - 10.0 /100 WBCs. The reference range was not used to interpret this result as normal/abnormal. NRBC x10^3 (test code = 5679855317) See_Comment [Automated [employer]] The system which generated this result transmitted reference range: 10*3/?L. The reference range was not used to interpret this result as normal/abnormal. GRAN MAT (NEUT) % (test code = 770-8) 46.9 % IMM GRAN % (test code = 3183521973) 0.10 % LYMPH % (test code = 736-9) 43.4 % MONO % (test code = 5905-5) 8.4 % EOS % (test code = 713-8) 0.9 % BASO % (test code = 706-2) 0.3 % GRAN MAT x10^3(ANC) (test code = 7714937937) 3.16 10*3/uL 1.99-6.95 IMM GRAN x10^3 (test code = 0724731883) 0.00-0.06 LYMPH x10^3 (test code = 731-0) 2.93 10*3/uL 1.09-3.23 MONO x10^3 (test code = 742-7) 0.57 10*3/uL 0.36-1.02 EOS x10^3 (test code = 711-2) 0.06 10*3/uL 0.06-0.53 BASO x10^3 (test code = 704-7) 0.01-0.09 Lab Interpretation (test code = 08965-1) Abnormal [facility] WITH [id number] 12:50:01* Test Item Value Reference Range Interpretation Comme nts WBC (test code = 6690-2) 6.75 See_Comment [Automated [employer]] The system which generated this result transmitted reference range: 4.20 - 10.70 10*3/?L. The reference range was not used to interpret this result as normal/abnormal. RBC (test code = 789-8) 5.08 See_Comment [Automated [employer]] The system which generated this result [...] 34.9 g/dL 31.2-35.0 RDW-SD (test code = 78088-6) 41.4 fL 38.5-51.6 RDW-CV (test code = 788-0) 13.2 % 12.1-15.4 PLT (test code = 777-3) 219 See_Comment [Automated messa ge] The system which generated this result transmitted reference range: 150 - 328 10*3/?L. The reference range was not used to interpret this result as normal/abnormal. MPV (test code = 99953-1) 9.5 fL 9.8-13.0 L NRBC/100 WBC (test code = 8516875692) 0.0 See_Comment [Automated me ssage] The system which generated this result transmitted reference range: 0.0 - 10.0 /100 WBCs. The reference range was not used to interpret this result as normal/abnormal. NRBC x10^3 (test code = 7644603422) See_Comment [Automated messa ge] The system which generated this result transmitted reference range: 10*3/?L. The reference range was not used to interpret this result as normal/abnormal. GRAN MAT (NEUT) % (test code = 770-8) 46.9 % IMM GRAN % (test code = 2801750858) 0.10 % LYMPH % (test code = 736-9) 43.4 % MONO % (test code = 5905-5) 8.4 % EOS % (test code = 713-8) 0.9 % BASO % (test code = 706-2) 0.3 % GRAN MAT x10^3(ANC) (test code = 8478563985) 3.16 10*3/uL 1.99-6.95 IMM GRAN x10^3 (test code = 4929255747) 0.00-0.06 LYMPH x10^3 (test code = 731-0) 2.93 10*3/uL 1.09-3.23 MONO x10^3 (test code = 742-7) 0.57 10*3/uL 0.36-1.02 EOS x10^3 (test code = 711-2) 0.06 10*3/uL 0.06-0.53 BASO x10^3 (test code = 704-7) 0.01-0.09 Lab Interpretation (test code = 66423-0) [facility]2023-02-13 21:02:35* Test Item Value Reference Range Interpretation Comme nts POCT GLU (test code = 3740853124) 118 mg/dL 70-110 H Lab Interpretation (test cod e = 42339-5) Abnormal [facility] WITH [id number] 05:51:48* Test Item Value Reference Range Interpretation [...] 34.4 g/dL 31.2-35.0 RDW-SD (test code = 90534-7) 38.5 fL 38.5-51.6 RDW-CV (test code = 788-0) 12.5 % 12.1-15.4 PLT (test code = 777-3) 216 See_Comment [Automated messa ge] The system which generated this result transmitted reference range: 150 - 328 10*3/?L. The reference range was not used to interpret this result as normal/abnormal. MPV (test code = 67744-9) 10.0 fL 9.8-13.0 NRBC/100 WBC (test code = 7969394327) 0.0 See_Comment [Automated me ssage] The system which generated this result transmitted reference range: 0.0 - 10.0 /100 WBCs. The reference range was not used to interpret this result as normal/abnormal. NRBC x10^3 (test code = 1424970645) See_Comment [Automated [employer]] The system which generated this result transmitted reference range: 10*3/?L. The reference range was not used to interpret this result as normal/abnormal. SEG % (test code = 97084-4) 36 % 33-76 LYMPH % (test code = 92941-5) 48 % 14-54 MONO % (test code = 84032-1) 13 % 0-4 H EOS % (test code = 84457-5) 3 % 0-3 ANC (test code = 753-4) 2.75 10*3/uL 1.99-6.95 Lab Interpretation (test code = 32270-4) [facility]41311[facility]-09 05:24:19* Test Item Value Reference Range Interpretation Comme nts NA (test code = 2051118183) 139 mmol/L 135-145 K (test code = 8638083578) 3.8 mmol/L 3.5-5.0 CL (test code = 7299831389) 105 mmol/L 98-108 CO2 TOTAL (test code = 1879576202) 24 mmol/L 23-31 AGAP (test code = 1862594599) 10 2-16 BUN (test code = 3642934054) 11 mg/dL 7-23 GLUCOSE (test code = 0553443861) 115 mg/dL 70-110 H CREATININE (test code = 8208012257) 0.93 mg/dL 0.60-1.25 TOTAL BILI (test code = 8767627460) 0.8 mg/dL 0.1-1.1 CALCIUM (test code = 5998540284) 9.3 mg/dL 8.6-10.6 T PROTEIN (test code = 5153191229) 8.0 g/dL 6.3-8.2 ALBUMIN (test code = 4432444196) 4.5 g/dL 3.5-5.0 ALK PHOS (test code = 1736213452) 50 U/L 34-122 ALTv (test code = 1742-6) 22 U/L 5-50 AST(SGOT) (test code = 8535016671) 36 U/L 13-40 eGFR (test code = 9492635282) 86.0 mL/min/1.73m2 KRYSTLE (test code = KRYSTLE) [...] imaging tests). Lab Interpretation (test code = 79148-9) [facility] 05:24:18* Test Item Value Reference Range Interpretation Comme nts LIPASE (test code = 1094295158) 271 U/L 0-220 H Lab Interpretation (test cod e = 63323-6) [facility]normal [facility] with [id number] 22:09:52* Test Item Value Reference Range Interpretation Comme nts WBC (test code = 6690-2) See_Comment [Automated [employer]] The system which generated this result transmitted [...] g/dL 31.2-35.0 H RDW-SD (test code = 89196-2) 39.2 fL 38.5-51.6 RDW-CV (test code = 788-0) 12.9 % 12.1-15.4 PLT (test code = 777-3) See_Comment [Automated [employer]] The system which generated this result transmitted reference range: 150 - 328 10*3/?L. The reference range was not used to interpret this result as normal/abnormal. MPV (test code = 15859-3) 9.0 fL 9.8-13.0 L NRBC/100 WBC (test code = 3396418346) See_Comment [Automated [employer]] The system which generated this result transmitted reference range: 0.0 - 10.0 /100 WBCs. The reference range was not used to interpret this result as normal/abnormal. NRBC x10^3 (test code = 7461295675) See_Comment [Automated [employer]] The system which generated this result transmitted reference range: 10*3/?L. The reference range was not used to interpret this result as normal/abnormal. GRAN MAT (NEUT) % (test code = 770-8) 35.3 % IMM GRAN % (test code = 8970929934) 0.00 % LYMPH % (test code = 736-9) 56.0 % MONO % (test code = 5905-5) 7.9 % EOS % (test code = 713-8) 0.4 % BASO % (test code = 706-2) 0.4 % GRAN MAT x10^3(ANC) (test code = 5262286176) 1.87 10*3/uL 1.99-6.95 L IMM GRAN x10^3 (test code = 7810541718) 0.00-0.06 LYMPH x10^3 (test code = 731-0) 2.97 10*3/uL 1.09-3.23 MONO x10^3 (test code = 742-7) 0.42 10*3/uL 0.36-1.02 EOS x10^3 (test code = 711-2) 0.06-0.53 L BASO x10^3 (test code = 704-7) 0.01-0.09 Lab Interpretation (test code = 40168-2) Abnormal [facility] METABOLIC PANEL (NA, K, CL, CO2, GLUCOSE, BUN, CREATININE, CA)2022-10-12 00:25:13* Test Item Value Reference Range Interpretation Comme nts NA (test code = 4130189925) 136 mmol/L 135-145 K (test code = 7933860452) 3.5 mmol/L 3.5-5.0 CL (test code = 1111339022) 103 mmol/L 98-108 CO2 TOTAL (test code = 4043230826) 26 mmol/L 23-31 AGAP (test code = 7216407241) 2-16 BUN (test code = 2719652292) 14 mg/dL 7-23 GLUCOSE (test code = 8248227593) 157 mg/dL 70-110 H CREATININE (test code = 2463098604) 0.80 mg/dL 0.60-1.25 CALCIUM (test code = 9621496592) 8.4 mg/dL 8.6-10.6 L eGFR (test code = 3103700456) mL/min/1.73m2 KRYSTLE (test code = KRYSTLE) Association [...] imaging tests). Lab Interpretation (test code = 80066-0) [facility]en[facility] (15614) (ALB,T.PRO,BILI T,BU/BC,ALT,AST,ALK PHOS)2022-10-12 00:25:13* Test Item Value Reference Range Interpretation Comme nts TOTAL BILI (test code = 0785065306) 1.2 mg/dL 0.1-1.1 H BILI UNCON (test code = 9145552991) 1.0 mg/dL 0.1-1.1 BILI CONJ (test code = 7803822156) 0.0 mg/dL 0.0-0.3 T PROTEIN (test code = 2527825636) 7.1 g/dL 6.3-8.2 ALBUMIN (test code = 8423734810) 4.0 g/dL 3.5-5.0 ALK PHOS (test code = 2612660129) 59 U/L 34-122 ALTv (test code = 1742-6) 38 U/L 5-50 AST(SGOT) (test code = 5602339789) 61 U/L 13-40 H Lab Interpretation (test cod e = 62373-9) [facility]normal [facility] Confirmation (Lab Only)2022-10-11 21:35:47* Test Item Value Reference Range Interpretation Comme nts ABO & RH (test code = 20) O Positive Performed at [facility] Laboratory Services - [facility] Blood [address] Free: [phone] No. [id number] [facility] Screen - ONCE [id number] 21:25:51* Test Item Value Reference Range Interpretation Comme nts ABO & RH (test code = 20) O POSITIVE Performed at [facility] Laboratory Services - [address] Free: [phone] No. [id number] IAT (test code = 1185) Negative Performed at [facility] Laboratory Services - [address] Free: [phone] No. [id number] [facility] WITH [id number] 20:47:43* Test Item Value Reference Range Interpretation [...] g/dL 31.2-35.0 H RDW-SD (test code = 57539-2) 41.1 fL 38.5-51.6 RDW-CV (test code = 788-0) 13.2 % 12.1-15.4 PLT (test code = 777-3) See_Comment [Automated [employer]] The system which generated this result transmitted reference range: 150 - 328 10*3/?L. The reference range was not used to interpret this result as normal/abnormal. MPV (test code = 40149-8) 9.5 fL 9.8-13.0 L NRBC/100 WBC (test code = 1594859968) See_Comment [Automated [employer]] The system which generated this result transmitted reference range: 0.0 - 10.0 /100 WBCs. The reference range was not used to interpret this result as normal/abnormal. NRBC x10^3 (test code = 5664189195) See_Comment [Automated [employer]] The system which generated this result transmitted reference range: 10*3/?L. The reference range was not used to interpret this result as normal/abnormal. GRAN MAT (NEUT) % (test code = 770-8) 38.2 % IMM GRAN % (test code = 9590587786) 0.00 % LYMPH % (test code = 736-9) 53.7 % MONO % (test code = 5905-5) 7.5 % EOS % (test code = 713-8) 0.3 % BASO % (test code = 706-2) 0.3 % GRAN MAT x10^3(ANC) (test code = 6229741869) 2.46 10*3/uL 1.99-6.95 IMM GRAN x10^3 (test code = 6675933648) 0.00-0.06 LYMPH x10^3 (test code = 731-0) 3.46 10*3/uL 1.09-3.23 H MONO x10^3 (test code = 742-7) 0.48 10*3/uL 0.36-1.02 EOS x10^3 (test code = 711-2) 0.06-0.53 L BASO x10^3 (test code = 704-7) 0.01-0.09 Lab Interpretation (test code = 61028-0) [facility]enLIPID PANEL (53723)(TOTAL CHOLESTEROL, TRIGLYCERIDES, HDL)2022-10-11 20:32:44* Test Item Value Reference Range Interpretation Comme nts CHOL (test code = 3961244324) 195 mg/dL 120-200 HDL (test code = 8344053233) 36 mg/dL See_Comment L [Automated [employer]] The system which generated this result transmitted reference range: >=40. The reference range was not used to interpret this result as normal/abnormal. HDLC RATIO (test code = 7859874489) See_Comment H [Automated [employer]] The system which generated this result transmitted reference range: <=5.0. The reference range was not used to interpret this result as normal/abnormal. TRIG (test code = 2016139235) 84 mg/dL 30-170 LDL CHOL (test code = 77179-9) 142 mg/dL See_Comment [Automated [employer]] The system which generated this result transmitted reference range: <=160. The reference range was not used to interpret this result as normal/abnormal. VLDL (test code = 2369850285) 17 mg/dL 5-60 Lab Interpretation (test code = 78324-4) [facility]normal [facility]enN-TERMINAL [id number] 14:23:55* Test Item Value Reference Range Interpretation Comme nts NT-proBNP (test code = 6688339675) See_Comment [Automated message] The system which generated this result transmitted reference range: <=125. The reference range was not used to interpret this result as normal/abnormal. KRYSTLE (test code = KRYSTLE) Biotin has been reported to cause a negative bias, interpret results relative to patient's use of biotin. Lab Interpretation (test code = 28806-0) Normal [facility]enACTIVATED PARTIAL THRMPLAS [id number] 14:23:25* Test Item Value Reference Range Interpretation Comme nts APTT Patient (test code = 3173-2) See_Comment [Automated message] The system which generated this result transmitted reference range: 23 - 38 Seconds. The reference range was not used to interpret this result as normal/abnormal. KRYSTLE (test code = KRYSTLE) The [facility] patient population mean normal value for aPTT is 30 seconds. Lab Interpretation (test code = 42121-1) Normal [facility]2023-01-28 14:23:05* Test Item Value Reference Range Interpretation Comme nts LIPASE (test code = 0428726511) 502 U/L 0-220 H Lab Interpretation (test cod e = 83581-4) [facility]normal [facility] METABOLIC PANEL (96168)2022-10-11 14:23:05* Test Item Value Reference Range Interpretation Comme nts NA (test code = 1823454251) 139 mmol/L 135-145 K (test code = 3589083920) 5.0 mmol/L 3.5-5.0 Slight hemolysis CL (test code = 2430068015) 103 mmol/L 98-108 CO2 TOTAL (test code = 4271975987) 28 mmol/L 23-31 AGAP (test code = 4856603410) 2-16 BUN (test code = 9385650362) 17 mg/dL 7-23 Slight hemolysis GLUCOSE (test code = 4388788886) 103 mg/dL 70-110 CREATININE (test code = 4314797427) 0.80 mg/dL 0.60-1.25 TOTAL BILI (test code = 0311081622) 1.6 mg/dL 0.1-1.1 H CALCIUM (test code = 8094181925) 9.0 mg/dL 8.6-10.6 T PROTEIN (test code = 8606325521) 8.4 g/dL 6.3-8.2 H ALBUMIN (test code = 6133168475) 4.8 g/dL 3.5-5.0 ALK PHOS (test code = 7234230347) 57 U/L 34-122 Slight hemolysis ALTv (test code = 1742-6) 49 U/L 5-50 AST(SGOT) (test code = 6114747296) 77 U/L 13-40 H Slight hemolysis eGFR (test code = 8715176587) mL/min/1.73m2 KRYSTEL (test code = KRYSTLE) Association of Glomerular [...] imaging tests). Lab Interpretation (test code = 46665-8) [facility]normal [facility]enTROPONIN [id number] 14:23:05* Test Item Value Reference Range Interpretation Comments TROPONIN I (test code = 7688044892) 0.018 ng/mL See_Comment [Automated message] The system [...] of biotin. Lab Interpretation (test code = 19888-1) Normal [facility]lingenPROTHROMBIN TIME / [id number] 14:20:24* Test Item Value Reference Range Interpretation [...] the indications. Lab Interpretation (test code = 93380-5) Normal [facility] WITH [id number] 13:55:05* Test Item Value Reference Range Interpretation [...] 34.9 g/dL 31.2-35.0 RDW-SD (test code = 38834-6) 40.4 fL 38.5-51.6 RDW-CV (test code = 788-0) 13.0 % 12.1-15.4 PLT (test code = 777-3) See_Comment [Automated messa ge] The system which generated this result transmitted reference range: 150 - 328 10*3/?L. The reference range was not used to interpret this result as normal/abnormal. MPV (test code = 61945-5) 9.1 fL 9.8-13.0 L NRBC/100 WBC (test code = 1120028412) See_Comment [Automated [employer]] The system which generated this result transmitted reference range: 0.0 - 10.0 /100 WBCs. The reference range was not used to interpret this result as normal/abnormal. NRBC x10^3 (test code = 4417953848) See_Comment [Automated messa ge] The system which generated this result transmitted reference range: 10*3/?L. The reference range was not used to interpret this result as normal/abnormal. GRAN MAT (NEUT) % (test code = 770-8) 53.2 % IMM GRAN % (test code = 9388220664) 0.10 % LYMPH % (test code = 736-9) 36.6 % MONO % (test code = 5905-5) 9.3 % EOS % (test code = 713-8) 0.5 % BASO % (test code = 706-2) 0.3 % GRAN MAT x10^3(ANC) (test code = 9228093734) 4.25 10*3/uL 1.99-6.95 IMM GRAN x10^3 (test code = 7130634964) 0.00-0.06 LYMPH x10^3 (test code = 731-0) 2.92 10*3/uL 1.09-3.23 MONO x10^3 (test code = 742-7) 0.74 10*3/uL 0.36-1.02 EOS x10^3 (test code = 711-2) 0.04 10*3/uL 0.06-0.53 L BASO x10^3 (test code = 704-7) 0.01-0.09 Lab Interpretation (test code = 26088-8) [facility][id number][facility]-09 13:23:22* Test Item Value Reference Range Interpretation Comme nts NA (test code = 4340064179) 138 mmol/L 135-145 K (test code = 9290827220) 4.5 mmol/L 3.5-5 CL (test code = 2180159087) 106 mmol/L 98-108 CO2 TOTAL (test code = 5294665146) 24 mmol/L 23-31 AGAP (test code = 4940108130) 2-16 BUN (test code = 5925704662) 18 mg/dL 7-23 GLUCOSE (test code = 5465114068) 97 mg/dL 70-110 CREATININE (test code = 8657726529) 0.98 mg/dL 0.6-1.25 TOTAL BILI (test code = 5317234377) 0.5 mg/dL 0.1-1.1 CALCIUM (test code = 3083827200) 9.3 mg/dL 8.6-10.6 T PROTEIN (test code = 8976935941) 7.3 g/dL 6.3-8.2 ALBUMIN (test code = 4814238781) 4.5 g/dL 3.5-5 ALK PHOS (test code = 2456780166) 65 U/L 34-122 ALTv (test code = 1742-6) 27 U/L 5-50 AST(SGOT) (test code = 6476013927) 33 U/L 13-40 eGFR (test code = 1479933358) mL/min/1.73m2 KRYSTLE (test code = KRYSTLE) Association [...] or urine or abnormalities in imaging tests). [facility] 13:23:01* Test Item Value Reference Range Interpretation Comme nts LIPASE (test code = 2546501523) 596 U/L 0-220 H Lab Interpretation (test cod e = 41508-1) Abnormal [facility] WITH [id number] 13:09:00* Test Item Value Reference Range Interpretation Comme nts WBC (test code = 6690-2) See_Comment [Automated [employer]] The system which generated this result transmitted reference range: 4.20 - 10.70 10*3/?L. The reference range was not used to interpret this result as normal/abnormal. RBC (test code = 789-8) See_Comment [Automated [employer]] The system which generated this result [...] g/dL 31.2-35 H RDW-SD (test code = 20758-8) 38.3 fL 38.5-51.6 L RDW-CV (test code = 788-0) 12.3 % 12.1-15.4 PLT (test code = 777-3) See_Comment [Automated [employer]] The system which generated this result transmitted reference range: 150 - 328 10*3/?L. The reference range was not used to interpret this result as normal/abnormal. MPV (test code = 40653-3) 9.2 fL 9.8-13 L NRBC/100 WBC (test code = 8499245459) See_Comment [Automated [employer] ssage] The system which generated this result transmitted reference range: 0.0 - 10.0 /100 WBCs. The reference range was not used to interpret this result as normal/abnormal. NRBC x10^3 (test code = 5006740322) See_Comment [Automated messa ge] The system which generated this result transmitted reference range: 10*3/?L. The reference range was not used to interpret this result as normal/abnormal. GRAN MAT (NEUT) % (test code = 770-8) 47.3 % IMM GRAN % (test code = 7908041136) 0.30 % LYMPH % (test code = 736-9) 43.8 % MONO % (test code = 5905-5) 7.8 % EOS % (test code = 713-8) 0.5 % BASO % (test code = 706-2) 0.3 % GRAN MAT x10^3(ANC) (test code = 7484860088) 3.04 10*3/uL 1.99-6.95 IMM GRAN x10^3 (test code = 4840470101) 0-0.06 LYMPH x10^3 (test code = 731-0) 2.81 10*3/uL 1.09-3.23 MONO x10^3 (test code = 742-7) 0.50 10*3/uL 0.36-1.02 EOS x10^3 (test code = 711-2) 0.03 10*3/uL 0.06-0.53 L BASO x10^3 (test code = 704-7) 0.01-0.09 Lab Interpretation (test code = 28161-3) Abnormal [facility] METABOLIC PANEL (NA, K, CL, CO2, GLUCOSE, BUN, CREATININE, CA)2021-11-01 10:40:12* Test Item Value Reference Range Interpretation Comme nts NA (test code = 0288944150) 136 mmol/L 135-145 K (test code = 7799867640) 4.2 mmol/L 3.5-5.0 CL (test code = 7885041252) 104 mmol/L 98-108 CO2 TOTAL (test code = 4374775249) 31 mmol/L 23-31 AGAP (test code = 9044538186) 2-16 L BUN (test code = 6199528410) 15 mg/dL 7-23 GLUCOSE (test code = 5361057479) 91 mg/dL 70-110 CREATININE (test code = 5042466344) 0.96 mg/dL 0.60-1.25 CALCIUM (test code = 9846553863) 8.5 mg/dL 8.6-10.6 L eGFR (test code = 6585188344) mL/min/1.73m2 KRYSTLE (test code = KRYSTLE) Association [...] imaging tests). Lab Interpretation (test code = 69978-4) [facility] 10:40:12* Test Item Value Reference Range Interpretation Comme nts MAGNESIUM (test code = 6480325038) 1.7 mg/dL 1.7-2.4 Lab Interpretation (test cod e = 11828-9) [facility] 10:39:52* Test Item Value Reference Range Interpretation Comme nts PHOSPHORUS (test code = 6703583173) 4.4 mg/dL 2.5-5.0 Lab Interpretation (test cod e = 99499-1) Normal [facility] WITH [id number] 10:25:11* Test Item Value Reference Range Interpretation [...] 34.3 g/dL 31.2-35.0 RDW-SD (test code = 75612-4) 38.5 fL 38.5-51.6 RDW-CV (test code = 788-0) 12.3 % 12.1-15.4 PLT (test code = 777-3) See_Comment [Automated messa ge] The system which generated this result transmitted reference range: 150 - 328 10*3/?L. The reference range was not used to interpret this result as normal/abnormal. MPV (test code = 84616-7) 9.6 fL 9.8-13.0 L NRBC/100 WBC (test code = 2605305798) See_Comment [Automated me ssage] The system which generated this result transmitted reference range: 0.0 - 10.0 /100 WBCs. The reference range was not used to interpret this result as normal/abnormal. NRBC x10^3 (test code = 4528163921) <0.01 See_Comment [Automated messa ge] The system which generated this result transmitted reference range: 10*3/?L. The reference range was not used to interpret this result as normal/abnormal. GRAN MAT (NEUT) % (test code = 770-8) 49.5 % IMM GRAN % (test code = 8204817027) 0.30 % LYMPH % (test code = 736-9) 39.4 % MONO % (test code = 5905-5) 9.7 % EOS % (test code = 713-8) 0.8 % BASO % (test code = 706-2) 0.3 % GRAN MAT x10^3(ANC) (test code = 0210016880) 3.13 10*3/uL 1.99-6.95 IMM GRAN x10^3 (test code = 3224670867) <0.03 0.00-0.06 LYMPH x10^3 (test code = 731-0) 2.49 10*3/uL 1.09-3.23 MONO x10^3 (test code = 742-7) 0.61 10*3/uL 0.36-1.02 EOS x10^3 (test code = 711-2) 0.05 10*3/uL 0.06-0.53 L BASO x10^3 (test code = 704-7) <0.03 0.01-0.09 Lab Interpretation (test code = 77665-2) Abnormal [facility] [id number] 17:32:56* Test Item Value Reference Range Interpretation Comme nts NT-proBNP (test code = 6252478452) 13 pg/mL See_Comment [Automated message] The system which generated this result transmitted reference range: <=125. The reference range was not used to interpret this result as normal/abnormal. KRYSTLE (test code = KRYSTLE) Biotin has been reported to cause a negative bias, interpret results relative to patient's use of biotin. Lab Interpretation (test code = 60125-0) Normal [facility] [id number] 10:50:49* Test Item Value Reference Range Interpretation Comme nts NT-proBNP (test code = 4353926142) <11 See_Comment [Automated message] The system which generated this result transmitted reference range: <=125 pg/mL. The reference range was not used to interpret this result as normal/abnormal. KRYSTLE (test code = KRYSTLE) Biotin has been reported to cause a negative bias, interpret results relative to patient's use of biotin. Lab Interpretation (test code = 58269-7) [facility] [id number] 10:36:56* Test Item Value Reference Range Interpretation Comments TROPONIN I (test code = 1657749191) 0.004 ng/mL See_Comment [Automated message] The system [...] of biotin. Lab Interpretation (test code = 03265-9) Normal [facility]. METABOLIC PANEL (35140)2021-10-31 10:33:50* Test Item Value Reference Range Interpretation Comme nts NA (test code = 8637086986) 139 mmol/L 135-145 K (test code = 5755300142) 4.0 mmol/L 3.5-5.0 CL (test code = 7323123773) 109 mmol/L 98-108 H CO2 TOTAL (test code = 9025078799) 27 mmol/L 23-31 AGAP (test code = 9135602875) 2-16 BUN (test code = 3429028027) 16 mg/dL 7-23 GLUCOSE (test code = 1325362992) 97 mg/dL 70-110 CREATININE (test code = 6555865307) 1.00 mg/dL 0.60-1.25 TOTAL BILI (test code = 7821840720) 1.0 mg/dL 0.1-1.1 CALCIUM (test code = 7619956827) 8.7 mg/dL 8.6-10.6 T PROTEIN (test code = 2518198168) 7.9 g/dL 6.3-8.2 ALBUMIN (test code = 2111369820) 4.4 g/dL 3.5-5.0 ALK PHOS (test code = 0739931352) 60 U/L 34-122 ALTv (test code = 1742-6) 56 U/L 5-50 H AST(SGOT) (test code = 2840159400) 49 U/L 13-40 H eGFR (test code = 4244819869) mL/min/1.73m2 KRYSTLE (test code = KRYSTLE) Association [...] imaging tests). Lab Interpretation (test code = 71615-0) [facility]en[facility] [id number] 10:25:32* Test Item Value Reference Range Interpretation Comme nts MAGNESIUM (test code = 6466453717) 1.8 mg/dL 1.7-2.4 Lab Interpretation (test cod e = 34521-8) [facility]2022-[facility]-17 10:25:12* Test Item Value Reference Range Interpretation Comme nts PHOSPHORUS (test code = 1302133343) 3.9 mg/dL 2.5-5.0 Lab Interpretation (test cod e = 16997-3) [facility] [id number] 10:24:52* Test Item Value Reference Range Interpretation Comme nts CK (test code = 4996576093) 215 U/L 33-194 H Lab Interpretation (test cod e = 51050-0) [facility] with [id number] 10:18:09* Test Item Value Reference Range Interpretation [...] 33.9 g/dL 31.2-35.0 RDW-SD (test code = 56182-8) 41.3 fL 38.5-51.6 RDW-CV (test code = 788-0) 13.0 % 12.1-15.4 PLT (test code = 777-3) See_Comment [Automated messa ge] The system which generated this result transmitted reference range: 150 - 328 10*3/?L. The reference range was not used to interpret this result as normal/abnormal. MPV (test code = 05097-2) 10.0 fL 9.8-13.0 NRBC/100 WBC (test code = 7613294722) See_Comment [Automated [employer]] The system which generated this result transmitted reference range: 0.0 - 10.0 /100 WBCs. The reference range was not used to interpret this result as normal/abnormal. NRBC x10^3 (test code = 8269985852) <0.01 See_Comment [Automated [employer]] The system which generated this result transmitted reference range: 10*3/?L. The reference range was not used to interpret this result as normal/abnormal. GRAN MAT (NEUT) % (test code = 770-8) 46.4 % IMM GRAN % (test code = 6833827408) 0.20 % LYMPH % (test code = 736-9) 44.0 % MONO % (test code = 5905-5) 8.3 % EOS % (test code = 713-8) 0.7 % BASO % (test code = 706-2) 0.4 % GRAN MAT x10^3(ANC) (test code = 4860397022) 3.73 10*3/uL 1.99-6.95 IMM GRAN x10^3 (test code = 3017259566) <0.03 0.00-0.06 LYMPH x10^3 (test code = 731-0) 3.55 10*3/uL 1.09-3.23 H MONO x10^3 (test code = 742-7) 0.67 10*3/uL 0.36-1.02 EOS x10^3 (test code = 711-2) 0.06 10*3/uL 0.06-0.53 BASO x10^3 (test code = 704-7) 0.03 10*3/uL 0.01-0.09 Lab Interpretation (test code = 54830-3) [facility]normal [facility]enPROTHROMBIN [facility] / [id number] 10:18:09* Test Item Value Reference Range Interpretation Comme nts PROTIME PATIENT (test code = 5964-2) See_Comment [Automated [employer]] The system which generated this result transmitted reference range: 12.0 - 14.7 Seconds. The reference range was not used to interpret this result as normal/abnormal. INR (test code = 6301-6) Normal INR <1.1; Warfarin Therapeutic range 2.0 to 3.0 or 2.5 to 3.5, depending upon the indications. Lab Interpretation (test code = 50832-8) [facility]enTR[facility] [id number] 07:43:50* Test Item Value Reference Range Interpretation Comments TROPONIN I (test code = 2506982019) 0.005 ng/mL See_Comment [Automated message] The system [...] of biotin. Lab Interpretation (test code = 80139-7) Normal [facility]. METABOLIC PANEL (09744)2021-10-30 20:56:25* Test Item Value Reference Range Interpretation Comme nts NA (test code = 5188091048) 139 mmol/L 135-145 K (test code = 9045774025) 4.8 mmol/L 3.5-5.0 CL (test code = 0495115337) 105 mmol/L 98-108 CO2 TOTAL (test code = 4296005071) 26 mmol/L 23-31 AGAP (test code = 8446063252) 2-16 BUN (test code = 7386148499) 18 mg/dL 7-23 GLUCOSE (test code = 8155473668) 135 mg/dL 70-110 H CREATININE (test code = 4395912661) 0.98 mg/dL 0.60-1.25 TOTAL BILI (test code = 4364888567) 0.8 mg/dL 0.1-1.1 CALCIUM (test code = 9047047615) 10.0 mg/dL 8.6-10.6 T PROTEIN (test code = 3341869207) 10.3 g/dL 6.3-8.2 H ALBUMIN (test code = 1942219536) 5.5 g/dL 3.5-5.0 H ALK PHOS (test code = 2823070887) 74 U/L 34-122 ALTv (test code = 1742-6) 69 U/L 5-50 H AST(SGOT) (test code = 2578775547) 59 U/L 13-40 H eGFR (test code = 0427589209) mL/min/1.73m2 KRYSTLE (test code = KRYSTLE) Association [...] imaging tests). Lab Interpretation (test code = 49916-3) [facility]22-[facility] 20:56:05* Test Item Value Reference Range Interpretation Comme nts LIPASE (test code = 2811079764) 70 U/L 0-220 Lab Interpretation (test cod e = 73837-1) Normal [facility] WITH [id number] 20:34:20* Test Item Value Reference Range Interpretation [...] 34.3 g/dL 31.2-35.0 RDW-SD (test code = 75296-7) 40.6 fL 38.5-51.6 RDW-CV (test code = 788-0) 12.8 % 12.1-15.4 PLT (test code = 777-3) See_Comment [Automated messa ge] The system which generated this result transmitted reference range: 150 - 328 10*3/?L. The reference range was not used to interpret this result as normal/abnormal. MPV (test code = 76232-9) 9.2 fL 9.8-13.0 L NRBC/100 WBC (test code = 9428579419) See_Comment [Automated me ssage] The system which generated this result transmitted reference range: 0.0 - 10.0 /100 WBCs. The reference range was not used to interpret this result as normal/abnormal. NRBC x10^3 (test code = 8162295658) <0.01 See_Comment [Automated messa ge] The system which generated this result transmitted reference range: 10*3/?L. The reference range was not used to interpret this result as normal/abnormal. GRAN MAT (NEUT) % (test code = 770-8) 67.1 % IMM GRAN % (test code = 2341446231) 0.40 % LYMPH % (test code = 736-9) 24.5 % MONO % (test code = 5905-5) 7.6 % EOS % (test code = 713-8) 0.1 % BASO % (test code = 706-2) 0.3 % GRAN MAT x10^3(ANC) (test code = 2527878336) 7.34 10*3/uL 1.99-6.95 H IMM GRAN x10^3 (test code = 5871753061) 0.04 10*3/uL 0.00-0.06 LYMPH x10^3 (test code = 731-0) 2.67 10*3/uL 1.09-3.23 MONO x10^3 (test code = 742-7) 0.83 10*3/uL 0.36-1.02 EOS x10^3 (test code = 711-2) <0.03 0.06-0.53 L BASO x10^3 (test code = 704-7) 0.03 10*3/uL 0.01-0.09 Lab Interpretation (test code = 48450-7) [facility] [id number] 05:55:54* Test Item Value Reference Range Interpretation Comme nts CK (test code = 5798311855) 3682 U/L 33-194 H Lab Interpretation (test cod e = 12751-0) [facility]normal [facility] [id number] 05:55:54* Test Item Value Reference Range Interpretation Comme nts CK (test code = 0067173915) 3682 U/L 33-194 H Lab Interpretation (test cod e = 43299-4) Abnormal [facility] METABOLIC PANEL (NA, K, CL, CO2, GLUCOSE, BUN, CREATININE, CA)2021-05-24 05:02:27* Test Item Value Reference Range Interpretation Comme nts NA (test code = 8815255083) 137 mmol/L 135-145 K (test code = 3492519540) 3.6 mmol/L 3.5-5.0 CL (test code = 0843229022) 105 mmol/L 98-108 CO2 TOTAL (test code = 2767004933) 23 mmol/L 23-31 AGAP (test code = 2516968431) 2-16 BUN (test code = 6971692525) 26 mg/dL 7-23 H GLUCOSE (test code = 8362670826) 95 mg/dL 70-110 CREATININE (test code = 3478810546) 1.31 mg/dL 0.60-1.25 H CALCIUM (test code = 7336875491) 8.6 mg/dL 8.6-10.6 eGFR (test code = 9209005033) mL/min/1.73m2 KRYSTLE (test code = KRYSTLE) Association [...] imaging tests). Lab Interpretation (test code = 74420-5) Abnormal [facility] METABOLIC PANEL (NA, K, CL, CO2, GLUCOSE, BUN, CREATININE, CA)2021-05-24 05:02:27* Test Item Value Reference Range Interpretation Comme nts NA (test code = 0428723772) 137 mmol/L 135-145 K (test code = 0950977243) 3.6 mmol/L 3.5-5.0 CL (test code = 8556256755) 105 mmol/L 98-108 CO2 TOTAL (test code = 2129829159) 23 mmol/L 23-31 AGAP (test code = 8488087393) 2-16 BUN (test code = 3948476359) 26 mg/dL 7-23 H GLUCOSE (test code = 5797372675) 95 mg/dL 70-110 CREATININE (test code = 1578825461) 1.31 mg/dL 0.60-1.25 H CALCIUM (test code = 1040207780) 8.6 mg/dL 8.6-10.6 eGFR (test code = 1551300009) mL/min/1.73m2 KRYSTLE (test code = KRYSTLE) Association [...] imaging tests). Lab Interpretation (test code = 57493-0) Abnormal [facility] [id number] 02:56:10* Test Item Value Reference Range Interpretation Comments TROPONIN I (test code = 1110600637) 0.004 ng/mL See_Comment [Automated message] The system [...] of biotin. Lab Interpretation (test code = 30791-8) Normal [facility] [id number] 02:56:10* Test Item Value Reference Range Interpretation Comments TROPONIN I (test code = 5278224959) 0.004 ng/mL See_Comment [Automated message] The system [...] of biotin. Lab Interpretation (test code = 72462-3) [facility] [id number] 02:41:54* Test Item Value Reference Range Interpretation Comme nts CK (test code = 4349923271) 4607 U/L 33-194 H Lab Interpretation (test cod e = 37862-0) Abnormal [facility] [id number] 02:41:54* Test Item Value Reference Range Interpretation Comme nts CK (test code = 5258201666) 4607 U/L 33-194 H Lab Interpretation (test cod e = 56035-2) [facility] [id number] 02:33:28* Test Item Value Reference Range Interpretation Comme nts NT-proBNP (test code = 1348608502) 14 pg/mL See_Comment [Automated message] The system which generated this result transmitted reference range: <=125. The reference range was not used to interpret this result as normal/abnormal. KRYSTLE (test code = KRYSTLE) Biotin has been reported to cause a negative bias, interpret results relative to patient's use of biotin. Lab Interpretation (test code = 14591-9) [facility] [id number] 02:33:28* Test Item Value Reference Range Interpretation Comme nts NT-proBNP (test code = 9700102791) 14 pg/mL See_Comment [Automated message] The system which generated this result transmitted reference range: <=125. The reference range was not used to interpret this result as normal/abnormal. KRYSTLE (test code = KRYSTLE) Biotin has been reported to cause a negative bias, interpret results relative to patient's use of biotin. Lab Interpretation (test code = 87121-6) [facility]2021-09-10 02:29:35* Test Item Value Reference Range Interpretation Comme nts APPEARANCE (test code = 7734326260) Clear Clear COLOR (test code = 2331751199) Yellow Yellow PH (test code = 3363649571) 4.8-8.0 SP GRAVITY (test code = 2329672167) 1.003-1.030 GLU U QUAL (test code = 8491276623) Normal Normal BLOOD (test code = 9683523038) Negative Negative KETONES (test code = 0988079176) Negative Negative PROTEIN (test code = 2887-8) Negative Negative UROBILIN (test code = 4201491822) 2.0 mg/dL Normal A BILIRUBIN (test code = 0403748976) Negative Negative NITRITE (test code = 2642469067) Negative Negative LEUK MO (test code = 2669435127) Negative Negative RBC/HPF (test code = 0532414624) See_Comment [Automated [employer]] The system which generated this result transmitted reference range: 0 - 3 HPF. The reference range was not used to interpret this result as normal/abnormal. WBC/HPF (test code = 6309201910) See_Comment [Automated [employer]] The system which generated this result transmitted reference range: 0 - 5 HPF. The reference range was not used to interpret this result as normal/abnormal. BACTERIA (test code = 8747507818) Negative Negative MUCOUS (test code = 5394757436) Slight Negative LPF A SQ EPITH (test code = 1968215502) <1 HPF Lab Interpretation (test code = 60215-5) [facility]2021-[facility]-10 02:29:35* Test Item Value Reference Range Interpretation Comme nts APPEARANCE (test code = 5260320502) Clear Clear COLOR (test code = 3806327164) Yellow Yellow PH (test code = 6380505007) 4.8-8.0 SP GRAVITY (test code = 2023663298) 1.003-1.030 GLU U QUAL (test code = 9541721788) Normal Normal BLOOD (test code = 4360799700) Negative Negative KETONES (test code = 8301211592) Negative Negative PROTEIN (test code = 2887-8) Negative Negative UROBILIN (test code = 9572036412) 2.0 mg/dL Normal A BILIRUBIN (test code = 0881508394) Negative Negative NITRITE (test code = 3244055659) Negative Negative LEUK MO (test code = 9542969958) Negative Negative RBC/HPF (test code = 3848842392) See_Comment [Automated [employer]] The system which generated this result transmitted reference range: 0 - 3 HPF. The reference range was not used to interpret this result as normal/abnormal. WBC/HPF (test code = 0466708538) See_Comment [Automated [employer] ge] The system which generated this result transmitted reference range: 0 - 5 HPF. The reference range was not used to interpret this result as normal/abnormal. BACTERIA (test code = 4022683401) Negative Negative MUCOUS (test code = 6370642397) Slight Negative LPF A SQ EPITH (test code = 2958242740) <1 HPF Lab Interpretation (test code = 06342-8) Abnormal [facility]. METABOLIC PANEL (75869)2021-05-24 02:25:07* Test Item Value Reference Range Interpretation Comme nts NA (test code = 4262500508) 137 mmol/L 135-145 K (test code = 8268528709) 3.1 mmol/L 3.5-5.0 L CL (test code = 3420609244) 102 mmol/L 98-108 CO2 TOTAL (test code = 9522794351) 22 mmol/L 23-31 L AGAP (test code = 4905020400) 2-16 BUN (test code = 4701344821) 28 mg/dL 7-23 H GLUCOSE (test code = 6824006236) 132 mg/dL 70-110 H CREATININE (test code = 5054177276) 1.77 mg/dL 0.60-1.25 H TOTAL BILI (test code = 3023036164) 1.0 mg/dL 0.1-1.1 CALCIUM (test code = 7904863464) 9.4 mg/dL 8.6-10.6 T PROTEIN (test code = 2374108193) 9.4 g/dL 6.3-8.2 H ALBUMIN (test code = 9224065382) 5.0 g/dL 3.5-5.0 ALK PHOS (test code = 1919615753) 79 U/L 34-122 ALTv (test code = 1742-6) 112 U/L 5-50 H AST(SGOT) (test code = 2815436430) 152 U/L 13-40 H eGFR (test code = 3636297769) mL/min/1.73m2 KRYSTLE (test code = KRYSTLE) Association [...] imaging tests). Lab Interpretation (test code = 23858-1) Abnormal [facility]. METABOLIC PANEL (07426)2021-05-24 02:25:07* Test Item Value Reference Range Interpretation Comme nts NA (test code = 6094013864) 137 mmol/L 135-145 K (test code = 5826684814) 3.1 mmol/L 3.5-5.0 L CL (test code = 9995625499) 102 mmol/L 98-108 CO2 TOTAL (test code = 4188242293) 22 mmol/L 23-31 L AGAP (test code = 2742480002) 2-16 BUN (test code = 5729947216) 28 mg/dL 7-23 H GLUCOSE (test code = 3768739800) 132 mg/dL 70-110 H CREATININE (test code = 4833700064) 1.77 mg/dL 0.60-1.25 H TOTAL BILI (test code = 1903851509) 1.0 mg/dL 0.1-1.1 CALCIUM (test code = 8442121152) 9.4 mg/dL 8.6-10.6 T PROTEIN (test code = 8949524946) 9.4 g/dL 6.3-8.2 H ALBUMIN (test code = 7850719195) 5.0 g/dL 3.5-5.0 ALK PHOS (test code = 1858974093) 79 U/L 34-122 ALTv (test code = 1742-6) 112 U/L 5-50 H AST(SGOT) (test code = 9617915037) 152 U/L 13-40 H eGFR (test code = 9040145698) mL/min/1.73m2 KRYSTLE (test code = KRYSTLE) Association [...] imaging tests). Lab Interpretation (test code = 57346-1) Abnormal [facility] WITH [id number] 02:03:22* Test Item Value Reference Range Interpretation [...] g/dL 31.2-35.0 H RDW-SD (test code = 60039-2) 39.7 fL 38.5-51.6 RDW-CV (test code = 788-0) 12.7 % 12.1-15.4 PLT (test code = 777-3) See_Comment [Automated messa ge] The system which generated this result transmitted reference range: 150 - 328 10*3/?L. The reference range was not used to interpret this result as normal/abnormal. MPV (test code = 53682-2) 9.7 fL 9.8-13.0 L NRBC/100 WBC (test code = 7757726967) See_Comment [Automated [employer] ssage] The system which generated this result transmitted reference range: 0.0 - 10.0 /100 WBCs. The reference range was not used to interpret this result as normal/abnormal. NRBC x10^3 (test code = 4016214626) <0.01 See_Comment [Automated messa ge] The system which generated this result transmitted reference range: 10*3/?L. The reference range was not used to interpret this result as normal/abnormal. GRAN MAT (NEUT) % (test code = 770-8) 45.9 % IMM GRAN % (test code = 4302114114) 0.20 % LYMPH % (test code = 736-9) 41.7 % MONO % (test code = 5905-5) 11.6 % EOS % (test code = 713-8) 0.3 % BASO % (test code = 706-2) 0.3 % GRAN MAT x10^3(ANC) (test code = 6191124525) 3.95 10*3/uL 1.99-6.95 IMM GRAN x10^3 (test code = 6402358855) <0.03 0.00-0.06 LYMPH x10^3 (test code = 731-0) 3.60 10*3/uL 1.09-3.23 H MONO x10^3 (test code = 742-7) 1.00 10*3/uL 0.36-1.02 EOS x10^3 (test code = 711-2) 0.03 10*3/uL 0.06-0.53 L BASO x10^3 (test code = 704-7) 0.03 10*3/uL 0.01-0.09 Lab Interpretation (test code = 39441-8) Abnormal [facility] WITH [id number] 02:03:22* Test Item Value Reference Range Interpretation Comme nts WBC (test code = 6690-2) See_Comment [Automated [employer] ge] The system which generated this result transmitted reference range: 4.20 - 10.70 10*3/?L. The reference range was not used to interpret this result as normal/abnormal. RBC (test code = 789-8) See_Comment [Automated [employer]] The system which generated this result transmitted [...] g/dL 31.2-35.0 H RDW-SD (test code = 38920-3) 39.7 fL 38.5-51.6 RDW-CV (test code = 788-0) 12.7 % 12.1-15.4 PLT (test code = 777-3) See_Comment [Automated messa ge] The system which generated this result transmitted reference range: 150 - 328 10*3/?L. The reference range was not used to interpret this result as normal/abnormal. MPV (test code = 37389-5) 9.7 fL 9.8-13.0 L NRBC/100 WBC (test code = 8120343013) See_Comment [Automated [employer] ssage] The system which generated this result transmitted reference range: 0.0 - 10.0 /100 WBCs. The reference range was not used to interpret this result as normal/abnormal. NRBC x10^3 (test code = 1922322551) <0.01 See_Comment [Automated messa ge] The system which generated this result transmitted reference range: 10*3/?L. The reference range was not used to interpret this result as normal/abnormal. GRAN MAT (NEUT) % (test code = 770-8) 45.9 % IMM GRAN % (test code = 9181003176) 0.20 % LYMPH % (test code = 736-9) 41.7 % MONO % (test code = 5905-5) 11.6 % EOS % (test code = 713-8) 0.3 % BASO % (test code = 706-2) 0.3 % GRAN MAT x10^3(ANC) (test code = 0306204777) 3.95 10*3/uL 1.99-6.95 IMM GRAN x10^3 (test code = 3313173545) <0.03 0.00-0.06 LYMPH x10^3 (test code = 731-0) 3.60 10*3/uL 1.09-3.23 H MONO x10^3 (test code = 742-7) 1.00 10*3/uL 0.36-1.02 EOS x10^3 (test code = 711-2) 0.03 10*3/uL 0.06-0.53 L BASO x10^3 (test code = 704-7) 0.03 10*3/uL 0.01-0.09 Lab Interpretation (test code = 56515-1) Abnormal [place] [address] (ID NOW RAPID TESTING)2021-05-02 00:31:00* Test Item Value Reference Range Interpretation Comme nts SARS-CoV-2 Rapid ID NOW (test code = 81752-1) Not Detected Not Detected KRYSLTE (test code = KRYSTLE) ID NOW COVID-19 As say is an isothermal nucleic acid amplification test intended for the qualitative detection of nucleic acid from SARS-CoV-2 viral RNA in nasopharyngeal (TIE MAKER) specimens. It is used under Emergency [...] clinically indicated. Lab Interpretation (test code = 80778-9) Normal [facility] STREP SCREEN FOR GROUP [id number] 00:25:45* Test Item Value Reference Range Interpretation Comme nts Streptococcus pyogenes (grou p A) antigen (test code = 20131-3) Negative Negative Lab Interpretation (test cod e = 17322-2) Normal [place] [address] (ID NOW RAPID TESTING)2021-04-02 01:41:42* Test Item Value Reference Range Interpretation Comme nts SARS-CoV-2 Rapid ID NOW (test code = 02901-7) Not Detected Not Detected KRYSTLE (test code = KRYSTLE) ID NOW COVID-19 As say is an isothermal nucleic acid amplification test intended for the qualitative detection of nucleic acid from SARS-CoV-2 viral RNA in nasopharyngeal (TIE MAKER) specimens. It is used under Emergency [...] clinically indicated. Lab Interpretation (test code = 17096-5) [facility] [id number] 01:39:31* Test Item Value Reference Range Interpretation Comme nts Streptococcus pyogenes (grou p A) antigen (test code = 42935-9) Negative Negative Lab Interpretation (test cod e = 73452-6) Normal [facility]+ VW [id number] 02:41:03 Impression: No acute osseous abnormality. AFC: [id number] of Report Exam: XR WRIST 3+ [...] soft tissue edema.IMPRESSIONImpression: No acute osseous abnormality.AFC: [id number] of Report [facility]:01* Test Item Value Reference Range Interpretation Comme nts APPEARANCE (test code = 7009988141) Clear Clear COLOR (test code = 6099271549) Yellow Yellow PH (test code = 0044478306) 4.8-8.0 SP GRAVITY (test code = 8796499434) 1.003-1.030 GLU U QUAL (test code = 4803090669) Normal Normal BLOOD (test code = 5935316297) Negative Negative KETONES (test code = 8659626989) Negative Negative PROTEIN (test code = 2887-8) Negative Negative UROBILIN (test code = 3258383939) 2.0 mg/dL Normal A BILIRUBIN (test code = 6614956143) Negative Negative NITRITE (test code = 9769290298) Negative Negative LEUK MO (test code = 7483377497) Negative Negative RBC/HPF (test code = 1558582286) See_Comment [Automated [employer] ge] The system which generated this result transmitted reference range: 0 - 3 HPF. The reference range was not used to interpret this result as normal/abnormal. WBC/HPF (test code = 1730486316) See_Comment [Automated [employer] ge] The system which generated this result transmitted reference range: 0 - 5 HPF. The reference range was not used to interpret this result as normal/abnormal. BACTERIA (test code = 1079110775) Few Negative A MUCOUS (test code = 8479942454) Slight Negative LPF A SQ EPITH (test code = 9057878604) <1 HPF Lab Interpretation (test code = 02052-1) [facility]normal [facility] 1 [id number] 04:09:05Impression: Mild thickening of the sol of the central airways, possibly reflectinginfectious or inflammatory bronchitis. RL: 460 AFC: 48740 Ordering physician: DARNELL HSU Indication: Cough and [...] airways, possibly reflectinginfectious or inflammatory bronchitis.RL: 460AF: [id number] signed byMarisol Manzo MD, PhD at 11/14/2020 10:09 PM [facility]en[facility]PREHENSIVE METABOLIC [id number] 00:00:00* Test Item Value Reference Range Interpretation Comme nts GLUCOSE (test code = 2217) 101 MG/DL BUN (test code = 2208) 11 MG/DL CREATININE (test code = 2214) 0.88 MG/DL eGFR AMER. (test cod e = 66502) 118 ML/MIN/1.73 eGFR NON- AMER. (test code = 44895) 102 ML/MIN/1.73 CALC BUN/CREAT (test code = [...] (test code = 2219) 88 U/L N-TERMINAL [id number] 15:43:00* Test Item Value Reference Range Interpretation Comme nts NT-proBNP (test code = 8748973107) <11 See_Comment [Automated message] The system which generated this result transmitted reference range: <=125 pg/mL. The reference range was not used to interpret this result as normal/abnormal. KRYSTLE (test code = KRYSTLE) Biotin has been reported to cause a negative bias, interpret results relative to patient's use of biotin. Lab Interpretation (test code = 07665-3) Normal [facility] WITH [id number] 15:27:00* Test Item Value Reference Range Interpretation Comme nts WBC (test code = 6690-2) See_Comment [Automated [employer] ge] The system which generated this result transmitted reference range: 4.20 - 10.70 10*3/?L. The reference range was not used to interpret this result as normal/abnormal. RBC (test code = 789-8) See_Comment [Automated [employer] ge] The system which generated this result [...] g/dL 31.2-35 H RDW-SD (test code = 25779-1) 37.3 fL 38.5-51.6 L RDW-CV (test code = 788-0) 11.9 % 12.1-15.4 L PLT (test code = 777-3) See_Comment [Automated messa ge] The system which generated this result transmitted reference range: 150 - 328 10*3/?L. The reference range was not used to interpret this result as normal/abnormal. MPV (test code = 82026-6) 9.7 fL 9.8-13 L NRBC/100 WBC (test code = 9410310568) See_Comment [Automated [employer] ssage] The system which generated this result transmitted reference range: 0.0 - 10.0 /100 WBCs. The reference range was not used to interpret this result as normal/abnormal. NRBC x10^3 (test code = 3214109488) <0.01 See_Comment [Automated [employer] ge] The system which generated this result transmitted reference range: 10*3/?L. The reference range was not used to interpret this result as normal/abnormal. GRAN MAT (NEUT) % (test code = 770-8) 29.2 % IMM GRAN % (test code = 8934531220) 0.20 % LYMPH % (test code = 736-9) 59.0 % MONO % (test code = 5905-5) 10.1 % EOS % (test code = 713-8) 1.1 % BASO % (test code = 706-2) 0.4 % GRAN MAT x10^3(ANC) (test code = 8759011850) 1.57 10*3/uL 1.99-6.95 L IMM GRAN x10^3 (test code = 6138103440) <0.03 0-0.06 LYMPH x10^3 (test code = 731-0) 3.17 10*3/uL 1.09-3.23 MONO x10^3 (test code = 742-7) 0.54 10*3/uL 0.36-1.02 EOS x10^3 (test code = 711-2) 0.06 10*3/uL 0.06-0.53 BASO x10^3 (test code = 704-7) <0.03 0.01-0.09 Lab Interpretation (test code = 01197-3) [facility]normal [facility] 1 [id number] 15:13:32No acute cardiopulmonary process. Preliminary Report Dictated [...] have reviewed thisstudy and agree withthe above report.[facility]lingenTROPONIN [id number] 14:59:00* Test Item Value Reference Range Interpretation Comme nts TROPONIN I (test code = 1158428277) <0.012 See_Comment [Automated message] The system which [...] biotin. ? Lab Interpretation (test code = 69081-7) Normal [facility]. METABOLIC PANEL (85351)2020-09-30 14:59:00* Test Item Value Reference Range Interpretation Comme nts NA (test code = 3282662052) 139 mmol/L 135-145 K (test code = 3352953523) 3.8 mmol/L 3.5-5 CL (test code = 2114945202) 103 mmol/L 98-108 CO2 TOTAL (test code = 8771733597) 26 mmol/L 23-31 AGAP (test code = 7138410260) 2-16 BUN (test code = 5089859759) 11 mg/dL 7-23 GLUCOSE (test code = 8904397178) 163 mg/dL 70-110 H CREATININE (test code = 2202341716) 0.85 mg/dL 0.6-1.25 TOTAL BILI (test code = 5965398093) 0.6 mg/dL 0.1-1.1 CALCIUM (test code = 0566072781) 9.0 mg/dL 8.6-10.6 T PROTEIN (test code = 4903786870) 8.0 g/dL 6.3-8.2 ALBUMIN (test code = 5863043806) 4.4 g/dL 3.5-5 ALK PHOS (test code = 6679332290) 75 U/L 34-122 ALTv (test code = 1742-6) 61 U/L 5-50 H AST(SGOT) (test code = 4632554308) 54 U/L 13-40 H eGFR Calculation (Non-) (test code = 7188444653) mL/min/1.73m2 eGFR Calculation () (test code = 3832578469) mL/min/1.73m2 KRYSTLE (test code = KRYSTLE) Association [...] imaging tests). Lab Interpretation (test code = 81594-7) Abnormal [facility]en[facility]IPASE, [id number] 14:59:00* Test Item Value Reference Range Interpretation Comme nts LIPASE (test code = 2860796836) 116 U/L 0-220 Lab Interpretation (test cod e = 17309-0) Normal [facility]enTroponin [id number] 04:30:00* Test Item Value Reference Range Interpretation Comme nts TROPONIN I (test code = 8939493435) <0.012 See_Comment [Automated message] The system which [...] biotin. ? Lab Interpretation (test code = 51159-3) Normal [facility]en[facility] Metabolic [id number] 03:24:00* Test Item Value Reference Range Interpretation Comme nts NA (test code = 1378562320) 137 mmol/L 135-145 K (test code = 0610155232) 4.7 mmol/L 3.5-5 CL (test code = 5754955406) 101 mmol/L 98-108 CO2 TOTAL (test code = 3908937503) 27 mmol/L 23-31 AGAP (test code = 7046833080) 2-16 BUN (test code = 8079489425) 16 mg/dL 7-23 GLUCOSE (test code = 1327453754) 226 mg/dL 70-110 H CREATININE (test code = 1328762836) 1.13 mg/dL 0.6-1.25 TOTAL BILI (test code = 5163556984) 0.7 mg/dL 0.1-1.1 CALCIUM (test code = 1430967789) 9.3 mg/dL 8.6-10.6 T PROTEIN (test code = 7850161471) 7.8 g/dL 6.3-8.2 ALBUMIN (test code = 6068550060) 3.9 g/dL 3.5-5 ALK PHOS (test code = 6494454301) 79 U/L 34-122 ALTv (test code = 1742-6) 62 U/L 5-50 H AST(SGOT) (test code = 5210803461) 49 U/L 13-40 H eGFR Calculation (Non-) (test code = 6053040059) mL/min/1.73m2 eGFR Calculation () (test code = 6935599572) mL/min/1.73m2 KRYSTLE (test code = KRYSTLE) Association [...] imaging tests). Lab Interpretation (test code = 37474-3) Abnormal [facility]lingenLipase, [id number] 03:23:00* Test Item Value Reference Range Interpretation Comme nts LIPASE (test code = 9185918648) 317 U/L 0-220 H Lab Interpretation (test cod e = 92391-1) Abnormal [facility]enCBC with [id number] 03:21:00* Test Item Value Reference Range Interpretation Comme nts WBC (test code = 6690-2) See_Comment [Envoimoinscher] The system which generated this result transmitted reference range: 4.20 - 10.70 10*3/?L. The reference range was not used to interpret this result as normal/abnormal. RBC (test code = 789-8) See_Comment [Automated [employer]] The system which generated this result transmitted [...] g/dL 31.2-35 H RDW-SD (test code = 16161-8) 37.9 fL 38.5-51.6 L RDW-CV (test code = 788-0) 12.4 % 12.1-15.4 PLT (test code = 777-3) See_Comment [Automated [employer]] The system which generated this result transmitted reference range: 150 - 328 10*3/?L. The reference range was not used to interpret this result as normal/abnormal. MPV (test code = 49436-0) 9.7 fL 9.8-13 L NRBC/100 WBC (test code = 5056785065) See_Comment [Automated [employer] ssage] The system which generated this result transmitted reference range: 0.0 - 10.0 /100 WBCs. The reference range was not used to interpret this result as normal/abnormal. NRBC x10^3 (test code = 2283718924) <0.01 See_Comment [Automated [employer]] The system which generated this result transmitted reference range: 10*3/?L. The reference range was not used to interpret this result as normal/abnormal. GRAN MAT (NEUT) % (test code = 770-8) 36.7 % IMM GRAN % (test code = 6295303528) 0.10 % LYMPH % (test code = 736-9) 50.9 % MONO % (test code = 5905-5) 11.1 % EOS % (test code = 713-8) 0.8 % BASO % (test code = 706-2) 0.4 % GRAN MAT x10^3(ANC) (test code = 0067353221) 2.59 10*3/uL 1.99-6.95 IMM GRAN x10^3 (test code = 4571409244) <0.03 0-0.06 LYMPH x10^3 (test code = 731-0) 3.61 10*3/uL 1.09-3.23 H MONO x10^3 (test code = 742-7) 0.79 10*3/uL 0.36-1.02 EOS x10^3 (test code = 711-2) 0.06 10*3/uL 0.06-0.53 BASO x10^3 (test code = 704-7) 0.03 10*3/uL 0.01-0.09 Lab Interpretation (test code = 32372-1) Abnormal [facility] History and Physical Notes Date/Time Note Provider [...] 220). On a 12/2022 hospital stay at [facility], he was diagnosed with an idiopathic chronic [...] by mouth daily. 90 tablet 1 Pancrelipase, Efp-Hvgc-Waqi, (Creon) 32[address]-8[address] units oral Cap DR Particles Take 1 [...] All questions were answered. Gibran Mcadams MD [facility] Notes Date/Time Note Provider Source 2025-04-30 14:25:20 Patient given discharge instructions on viral syndrome. Given prescription X 1 for paxlovid. Pt advised to follow up with pcp. Pt left ER ambulatory, no signs of distress. Shereen Marcum RN [facility] 2025-04-30 10:59:27 Patient to ED complaining of generalized weakness, body aches, uncontrolled BM started yesterday. States went to ER yesterday and he was tested positive for Covid. ROT Alfred Juarez RN [facility] 2025-04-06 23:09:20 Pt discharged with diagnosis of EARNEST, muscle cramps, RUQ abdominal pain and heat exhaustion. Printed and verbal instructions reviewed with and given to pt. Prescriptions given x 0. pt verbalized understanding of teaching and recommended follow-up. Denies questions or concerns at this time. Pt ambulatory at discharge. Appears in no apparent distress. No ataxia noted. Nicole Velásquez RN [facility] 2025-04-06 19:14:39 Pt given urine cup and placed back into lobby with instructions for collecting urine sample. [facility] 2025-04-06 19:09:53 Pt arrived ambulatory without assist. Pt c/o "locking muscles" and generalized pain for the last three days. ROT Stephy Dennison RN [facility] 2025-04-06 19:03:00 [facility] Emergency Department Note Patient Name: Noah Putnam Date of : 1970 54 year old male Treatment Room: [place] [address] Primary Care Physician: Anselmo Genao Patient Escorted by: Self [9] Mode of Arrival: Personal means [1] EMS Treatment Prior to ED Arrival: PILOT SUBMERSIBLE treatment: None Travel and Exposure Screening: Symptoms [...] during the day. History provided by: Patient motor vehicle parts interpreter used: No Past Medical History/Immunizations: Past Medical [...] History: Past Surgical History: Procedure Laterality Date FL FOREARM OR WRIST SURGERY Left Review of [...] portal vein was evaluated with color Doppler. Cutter Barrel Drum images were obtained for the record. COMPARISON: [...] 0.01 - 0.09 10*3/uL COMP. METABOLIC PANEL (83570) - Abnormal NA 134 (*) 135 - [...] bladder CBC WITH DIFF COMP. METABOLIC PANEL (32890) Creatine Kinase Magnesium Sedimentation Rate C-Reactive Protein URINALYSIS Lipase Troponin I Orders Placed This Encounter Medications NaCl 0.9% (NS) bolus infusion 1,000 mL ketorolac (TORADOL) injection 30 mg NaCl 0.9% (NS) bolus infusion 1,000 mL NaCl 0.9% (NS) bolus infusion 1,000 mL First Provider Eval: ED Events Date/Time Event User Comments 04/06/251924 Medical Screening Begins LION RODRIGUEZ Thomas -- 04/06/251924 First Provider Evaluation LION RODRIGUEZ Thomas -- ED COURSE ED Course as of 04/06/25 2300 Carrie Apr 06, [id number] Patient given 3L [...] 8.31 [CH] ED Course User Index [CH] Jessi RodriguezBENJIE torres Diagnosis/Impression as of 04/06/252299 Muscle cramps Right [...] hours as needed for Pain (scale 7-10). AZRVSG-OUUBTLTW-OMRLQIA (CREON) 3,000-9,500- 15,000 UNIT CAPSULE Take 1 [...] FAMILY MEDICINE Relationship: PCP - General [address] [place] [address] DR Genao [facility] [address] [facility] [id number] Instructions: Please follow-up with PCP in 3-5 days. [facility]-Emergency Department Specialty: Emergency Medicine [address] [facility] [address] Instructions: If symptoms worsen I have considered [...] I was present for consultation as needed. [facility] 2025-01-02 08:34:39 Chief Complaint Patient presents with OTHER Follow up from ER Pancreatitis flare up Patient states he is not urinating like he should as well Houston Hatch MA Houston Hatch MA [facility] 2024 09:50:08 Chief Complaint Patient presents with Hospital F/U pancreatitis Houston Hatch MA [facility] 2024-06-07 20:01:54 Pt given printed and verbal [...] in no apparent distress. Stephany Membreno RN [facility] 2024-06-07 17:51:04 Patient does not want another dose of nitro. [facility] 2024-06-07 16:53:18 Patient reports getting flu shot about 2 hours ago and now developing shortness of breath. Also has some chest pressure. Yosi Garcia RN [facility] 2024-04-02 12:54:12 Pt given printed and [...] distress. Left with . Caty Pang RN [facility] 2024-04-02 08:35:20 Pt arrives with c/o upper abd pain, pt states known hx pancreatitis, had recent labs and lipase elevated. Pain present for one week, worsening last 2 days. Phone internet marketing coordinator recommended coming to ER. Pt has been hospitalized for this. Aminta Novao RN [facility] 2024-03-30 08:10:34 Chief Complaint Patient presents with Consultation Yosi Dos Santos LVN [facility] 2024-02-20 23:53:18 Pt given printed and [...] in no apparent distress. Carol Siddiqui RN [facility] 2024-02-20 21:42:07 Pt arrived ambulatory with complaints of abdominal pain and constipation x4 days. Pt reports hx of pancreatitis but has been out of Creon prescription for a while. Debora Bhatti RN [facility] 2023-12-09 23:47:26 Pt discharged with diagnosis of lumbar radiculopathy. Printed and verbal instructions reviewed with and given to pt. Prescriptions given x 2. Pt verbalized understanding of teaching, medication, and recommended follow-up. Denies questions or concerns at this time. Pt ambulatory at discharge. Appears in no apparent distress. No ataxia noted. Accompanied by family. Shira Brumfield RN [facility] 2023-12-09 20:10:35 CC: Pt reports left [...] amb with steady gait Carol Wu RN [facility] 2023-12-09 19:46:00 [facility] Emergency Department Note Patient Name: Noah Putnam Date of : 1970 53 year old male Treatment Room: [facility] Primary Care Physician: Jimmy Brennan Patient Escorted by: Self [9] Mode of Arrival: Personal means [1] EMS Treatment Prior to ED Arrival: PILOT SUBMERSIBLE treatment: None Travel and Exposure Screening: Symptoms [...] History provided by: Patient and medical records motor vehicle parts interpreter used: No Difficulty Urinating Presenting symptoms: no [...] History: Past Surgical History: Procedure Laterality Date FL FOREARM OR WRIST SURGERY Left Review of [...] 0.01 - 0.09 10*3/uL COMP. METABOLIC PANEL (20538) - Abnormal NA 141 135 - 145 [...] CONTRAST Cbc with Diff Comp. Metabolic Panel (50854) Urinalysis Orders Placed This Encounter Medications ketorolac [...] hours as needed (Abdominal pain or cramping). BMIAIN-YDEGTVFH-JVHBLYF (CREON) 3,000-9,500- 15,000 UNIT CAPSULE Take 1 [...] Jimmy Brennan MD Relationship: PCP - General [facility] [address] [place] [id number] Amrik Graham MD Specialty: ORT-ORTHOPAEDIC SURGERY [address] [facility] [address] Electronically signed by: Abraham Orantes MD 12/09/232306 T [facility] 2023-10-06 14:20:14 Chief Complaint Patient presents with New Patient Blood Pressure the patient States he will bring in all his meds the next ov [facility] 2023-07-23 07:15:00 [facility] ([facility]) EMERGENCY PROVIDER REPORT REPORT#:[id number] REPORT STATUS: Signed DATE:07/23/23 TIME: 714 PATIENT: ONAH PUTNAM UNIT #: [id number] ROOM/BED: AGE: 52 SEX: M PCP PHYS: DOES_NOT KNOW SERVICE AUTHOR: Tracy Hall MD R1 LOCATION: [facility] * ALL edits or amendments must [...] showed that the patient was seen in [place] ED on 07/[address] AP was negative for gallbladder, biliary, pancreatic and GI disease. Patient sees a GI doctor at [facility] and is in the process of [...] # (Auto) (1.0 - 3.8 K/mm3) 2.61 [place] # (Auto) (0.1 - 0.8 K/mm3) 0.68 Eos # (Auto) (0.0 - 0.2 K/mm3) 0.04 Baso # (Auto) (0.0 - 0.2 K/mm3) 0.02 Nucleated RBCs # (Man) (0.0 - 0.1 K/mm3) 0.00 Urines Urine Color (YELLOW) YELLOW Urine Appearance (CLEAR) CLEAR Urine pH (5.0 - 9.0) 6.0 Ur Specific [place] (1.003 - 1.030) 1.025 Urine Protein (NEGATIVE [...] Report Impression - Status: SIGNED Entered: 07/23/2023 0838 IMPRESSION: 1. No acute abnormality. Impression By: [...] in the ED, and will go see [facility] GI in [place] after discharge. 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 [place] [address] Provider Referral: Peter Pérez MD Address: [address] [place] [address] Provider Referral: Adebayo Bagley TIE MAKER Address: [address] [place] [address] Provider Referral: Carola Brooks TIE MAKER Address: [address] [place] [address] Provider Referral: Mary Ibarra MD Address: [address] [place] [address] Provider Referral: Woody Roman TIE MAKER Address: [address] [place] [address] Supervising Physician Note Resident Saw Pt This [...] for patient's abdominal pain. Patient called his wrecker operator for which she is going to another hospital but the GI works at to be admitted for further care and evaluation. Discussed no indication for admission at this facility which patient understands and agrees with plan. Patient is discharged home with analgesia antiemetics at 1039 at 1048 RPT #:[id number] END OF REPORT [facility] 2023-07-23 05:32:00 [facility] ([facility]) EMERGENCY PROVIDER REPORT REPORT#:[id number] REPORT STATUS: Signed DATE:07/23/23 TIME: 05 PATIENT: NOAH PUTNAM UNIT #: [id number] ROOM/BED: AGE: 52 SEX: M PCP PHYS: SERVICE DT: AUTHOR: Rita Ashford LOCATION: [facility] * ALL edits or amendments must [...] History Left wrist surgery at 0533 RPT #:[id number] END OF REPORT [facility] 2023-07-01 23:26:00 [id number] [place], [place] PATIENT NAME: NOAH PUTNAM ADMIT DATE: 07/01/23 ACCOUNT NO: [id number] ROOM NO: AGE: 52 REPORT TYPE: ELECTROCARDIOGRAM SEX: M : 74 ADMITTING PHYSICIAN: ATTENDING PHYSICIAN:Jessie Gleason DO Order: [id number] Test Reason : abdominal pain Test Date/Time [...] available Confirmed by JESSIE GLEASON DO ([id number]), copy editor MARCIA GALVEZ ([id number]) on 07/20/2023 3:03:25 PM Referred By: Self Referred Confirmed by:JESSIE GLEASON DO at [id number] PATIENT NAME: NOAH PUTNAM [facility] 2023-07-01 23:22:00 [facility] OR A CAMPUS OF [facility] EMERGENCY PROVIDER REPORT REPORT#:[id number] REPORT STATUS: Signed DATE:07/01/23 TIME: 2321 PATIENT: NOAH PUTNAM UNIT #: [id number] ROOM/BED: AGE: 52 SEX: M PCP PHYS: [...] care urgent care and was referred to [facility]. Patient states that he went to [facility] and was discharged with tramadol after [...] % (Auto) (24 - 44 %) 41.1 [place] % (Auto) (0.0 - 4.0 %) 7.4 [...] SCAN - CT ABD PELVIS W/CONT 07/01 1730 Report Impression - Status: SIGNED Entered: 07/02/2023 0009 IMPRESSION: No acute findings in the abdomen or pelvis. Mildly enlarged prostate with a nodular component protruding into the bladder base. Correlation with PSA is recommended. Impression By: Bear - Jennifer Bass MD ECG #1 Interpretation [...] ONE 07/01 2330 DCr 07/01 IV 234 Electrolytic, Caloric, And Daryn Sig/Shirin Start time Last Medication Dose Route Stop Time Status Admin Potassium Chloride 40 MEQ X1ED STA 07/02 0018 DC 07/02 PO 07/029 0032 Gastrointestinal Drugs Sig/Shirin Start time Last [...] Screening/Cessation Denies tobacco use at 0109 RPT #:[id number] END OF REPORT [facility] 2023-05-20 15:08:22 Formatting of this n ote is different from the original. Chief Complaint Patient presents with Consultation Andreia Regalado CMA I T [facility] 2023-05-07 23:22:46 Formatting of this n ote might be different from the original. Discharge instructions reviewed with patient. Follow up care discussed. All questions answered by RN. Patient ambulatory to [facility]. Patient in possession of all belongings. RR even and unlabored, VSS, NAD noted. T Steffanie Easley RN [facility] 2023-05-07 23:01:52 Formatting of this n ote might be different from the original. DC hold for fluid admin. [facility] 2023-05-07 22:51:08 Formatting of this n ote might be different from the original. This RN chaperoned DO for rectal exam. [facility] 2023-05-07 20:30:00 Formatting of this n ote [...] Patient reports he was seen at the [facility] a few days ago and treated [...] RR even and unlabored. VSS. NAD noted. [facility] 2023-05-07 17:35:38 Formatting of this n ote might be different from the original. Noah Putnam is a 52 year old male presenting to ED with c/o abd pain. Patient reports hx of pancreatitis. Patient reports began having blood in stool today. Patient to green chairs due to ED saturation Helene Newell RN [facility] 2023-05-02 00:32:03 Formatting of this n [...] and in no distress. Marcelo Tsai RN [facility] 2023-05-01 21:28:00 Formatting of this n [...] in the sun today." Lelo Carbajal RN [facility] 2023-04-22 13:03:22 Formatting of this n [...] in no apparent distress, Jacki Rodriguez RN [facility] 2023-04-22 10:35:21 Formatting of this n ote might be different from the original. Patient ate some potatoes from meal tray, states stomach began to cramp. Patient provided juice, states that his boss is going to being him some food that he will also try but states stomach is cramping. Caty Pang RN [facility] 2023-04-22 10:28:09 Formatting of this n ote might be different from the original. Patient provided meal tray. [facility] 2023-04-22 10:18:30 Formatting of this n ote might be different from the original. Patient encouraged to eat, advised of plan of care. [facility] 2023-04-22 06:30:24 Formatting of this n ote might be different from the original. Second liter of fluids completed, pt states he is still unable to urinate, RN gave pt a urinal and encouraged pt to try, pt stated that he will but he does not feel like going yet. Carol Siddiqui RN [facility] 2023-04-22 05:20:00 Formatting of this n ote might be different from the original. Pt walked to the bathroom, cannot void. Provider informed, orders received [facility] 2023-04-22 03:56:00 Formatting of this n [...] amb with steady gait Carol Wu RN [facility] 2023-04-22 03:50:00 Formatting of this n [...] components within normal limits COMP. METABOLIC PANEL (44122) - Abnormal; Notable for the following components: [...] pancreatitis type Natali Alexander DO 04/22/23 1238 [facility] 2023-04-16 08:49:36 Formatting of this n [...] complaining about the service. Rachana Pratt RN [facility] 2023-04-16 08:17:00 Formatting of this n ote might be different from the original. This RN and Provider at bedside. Provider explaining to pt that some of his pain could be due to being constipated, images showed pt is constipated. [facility] 2023-04-16 07:56:11 Formatting of this n ote might be different from the original. Pt returns from X-ray, NAD noted, family remains at bedside. T [facility] 2023-04-16 07:41:37 Formatting of this n ote might be different from the original. Pt transported to X-ray via [facility] transport. T [facility] 2023-04-16 07:20:37 Formatting of this n [...] bedside. Provider and this RN at bedside. [facility] 2023-04-16 07:08:22 Formatting of this n ote might be different from the original. Noah Putnam is a 52 year old male presenting to ED with c/o abd pain. Patient reports pain for a few weeks. Patient reports was recently seen and diagnosed with pancreatitis. Patient endorses pain to abd and radiates to back. Patient to room for further eval Helene Newell RN [facility] 2023-04-16 06:46:00 Formatting of this n ote is different from the original. [facility] Emergency Department Note Patient Name: Noah Putnam Date of : 1970 52 year old male Treatment Room: 108/[facility] Primary Care Physician: PATIENT DOES NOT HAVE A PCP Patient Escorted by: Family [5] Mode of Arrival: Personal means [1] EMS Treatment Prior to ED Arrival: PILOT SUBMERSIBLE treatment comments: Morning medications Travel and Exposure [...] radiates to back History provided by: Patient motor vehicle parts interpreter used: No Abdominal Pain Pain location: Generalized [...] History: Past Surgical History: Procedure Laterality Date FL FOREARM OR WRIST SURGERY Left Review of [...] 0.01 - 0.09 10*3/uL COMP. METABOLIC PANEL (06124) - Abnormal NA 142 135 - 145 [...] VW CBC WITH DIFF COMP. METABOLIC PANEL (59519) LIPASE TROPONIN I Orders Placed This Encounter Medications NaCl 0.9% (NS) bolus infusion 1,000 mL ketorolac (TORADOL) injection 30 mg dicyclomine (BENTYL) injection 20 mg famotidine (PEPCID (PF)) injection 20 mg lactulose (CEPHULAC) solution 45 mL rdcltl-mzyckjky-uolrrpp (CREON) 12,000-38,000 -60,000 unit capsule 2 capsule enalaprilat (VASOTEC I.V.) injection 1.25 mg ubifnj-filcksog-fnmsgzy (CREON) 3,000-9,500- 15,000 unit capsule hyoscyamine sulfate (LEVSIN/SL) 0.125 mg sublingual tablet famotidine (PEPCID) 20 mg tablet bisacodyL 5 mg EC tablet First Provider Eval: ED Events Date/Time Event User Comments 04/16/23 07 [...] hours as needed (Abdominal pain or cramping). HBDQOE-CVFOTXGW-NKPMJRJ (CREON) 3,000-9,500- 15,000 UNIT CAPSULE Take 1 [...] signed by: Adelaide Goodwin MD 04/16/23 0850 [facility] 2023-04-01 03:22:04 Formatting of this n ote [...] in no apparent distress. Lelo Carbajal RN [facility] 2023-04-01 00:02:06 Formatting of this n ote might be different from the original. History of chronic pancreatitis. Mid upper abdominal pain for 4 days. Complaining of oily stool. Vomited x2. Anuradha Nolen RN [facility]
[2025-06-07 20:16] LABS: Absolute Lymphocytes (CBC) 3.3 K/uL (0.7-4.9); Hematocrit 44.7 % (39.6-49.0); Hemoglobin 15.8 g/dL (13.6-17.9); MCH 30.3 pg (27.0-35.0); MCHC 35.3 g/dL (32.0-36.0); MCV 85.7 fL (80-100); MPV 6.9 fL (7.6-11.3); Nucleated RBC Absolute Count 0.0 (0-0); Nucleated Red Blood Cells % 0.1 % (0-0); RBC Red Blood Cell Count 5.21 M/uL (4.33-5.43); White Blood Count 9.30 thou/uL (4.3-10.9)
[2025-06-07] MEDS ORDERED: ONDANSETRON 4 MG/2 ML VIAL ONE (20:20)
[2025-06-07] MEDS ORDERED: NA CHLORIDE 0.9% 1,000 ML ONE (20:21)
[2025-06-07 20:42] LABS: ALT/SGPT 39.0 U/L (16-61); AST/SGOT 32.0 U/L (15-37); Albumin 4.7 g/dL (3.4-5.0); Albumin/Globulin Ratio 1.0 (1.1-1.8); Alkaline Phosphatase 61.0 U/L (45-117); Anion Gap 11.6 mEq/L (5.0-15.0); BUN Blood Urea Nitrogen 26.0 mg/dL (7-18); Globulin 4.6 g/dL (2.3-3.5); Glucose Level 102.0 mg/dL (74-106); Lipase 55.0 U/L (13-75); Potassium 3.6 mEq/L (3.5-5.1)
--- NOTE | 2025-06-07 20:51 | ER ---
Nurse's Notes [facility] Name: Noah Putnam Age: 54 yrs Sex: Male : 1970 Arrival Date: 06/07/2025 Time: 19:20 Bed 14 Private MD: Diagnosis: Abdominal pain, unspecified Presentation: 06/07 19:45 Chief complaint: Patient states: LT UPPER STOMACH PAIN THAT RADIATES TO LT BACK, N/V dd2 SINCE LAST THURSDAY. PT REPORTS PAIN AND BURNING IS GETTING WORSE. Coronavirus screen: At this time, the client does not indicate any symptoms associated with coronavirus-19. Ebola Screen: No symptoms or risks identified at this time. Initial Sepsis Screen: Does the patient meet any 2 criteria? No. Patient's initial sepsis screen is negative. Does the patient have a suspected source of infection? No. Patient's initial sepsis screen is negative. Risk Assessment: Do you want to hurt yourself or someone else? Patient reports no desire to harm self or others. Onset of symptoms was May 30, 2025. 19:45 Method Of Arrival: Ambulatory dd2 19:45 Acuity: BREEZY 3 dd2 Triage Assessment: 19:47 General: Appears in no apparent distress. uncomfortable, Behavior is calm, cooperative, dd2 appropriate for age. Pain: Complains of pain in left upper quadrant Pain radiates to left mid back Pain currently is 8 out of 10 on a pain scale. GI: Reports upper abdominal pain, intolerance of food, nausea, vomiting. Historical: - Allergies: 19:47 Bee Venom; dd2 - PMHx: 19:47 chronic kidney disease; Chronic Pancreatitis; Herniated disc; Hypertension; dd2 - PSHx: 19:47 left arm surgery; dd2 - Immunization history:: Adult Immunizations up to date. - Infectious Disease History:: Denies. - Social history:: Smoking status: Patient denies any tobacco usage or history of. Screenin:13 [facility] ED Fall Risk Assessment (Adult) History of falling in the last 3 months, kt5 including since admission No falls in past 3 months (0 pts) Confusion or Disorientation No (0 pts) Intoxicated or Sedated No (0 pts) Impaired Gait No (0 pts) Mobility Assist Device Used No (0 pt) Altered Elimination No (0 pt) Score/Fall Risk Level 0 - 2 = Low Risk. [facility] ED Fall Risk Assessment (Adult) Score/Fall Risk Level. Abuse screen: Denies threats or abuse. Nutritional screening: No deficits noted. Tuberculosis screening: No symptoms or risk factors identified. Assessment: 20:13 General: Appears in no apparent distress. comfortable, Behavior is calm, cooperative, kt5 appropriate for age. Pain: Complains of pain in abdomen Pain radiates to back Pain currently is 6 out of 10 on a pain scale. Quality of pain is described as aching, crampy, Pain began 6 days Is intermittent, episodic. Neuro: No deficits noted. Maier Agitation-Sedation Scale (RASS): 0 - Alert and Calm Level of Consciousness is awake, alert, obeys commands, Oriented to person, place, time, situation, Appropriate for age. Cardiovascular: No deficits noted. Denies chest pain, Heart tones S1 S2 present Capillary refill < 3 seconds Clubbing of nail beds is absent JVD is absent. Respiratory: No deficits noted. Airway is patent Trachea midline Respiratory effort is even, unlabored, Respiratory pattern is regular, symmetrical. GI: Abdomen is round non-distended, Bowel sounds present X 4 quads. Abd is soft and non tender X 4 quads. Reports lower abdominal pain, upper abdominal pain, nausea, vomiting. : No deficits noted. No signs and/or symptoms were reported regarding the genitourinary system. EENT: No deficits noted. No signs and/or symptoms were reported regarding the EENT system. Derm: No deficits noted. Skin is intact, is healthy with good turgor, Skin is dry, Skin is pink, warm \T\ dry. Musculoskeletal: No deficits noted. No signs and/or symptoms reported regarding the musculoskeletal system. 20:56 Reassessment: Patient appears in no apparent distress at this time. Patient and/or kt5 family updated on plan of care and expected duration. Pain level reassessed. Patient is alert, oriented x 3, equal unlabored respirations, skin warm/dry/pink. Patient states feeling better. Patient states symptoms have improved. Vital Signs: 19:45 BP 144 / 94; Pulse 87; Resp 16; Temp 97.9; Pulse Ox 98% ; Weight 125.19 kg; Height 6 dd2 ft. 5 in. ; Pain 8/10; 20:13 BP 132 / 98; Pulse 80; Resp 16; Pulse Ox 95% ; kt5 20:56 BP 134 / 69; Pulse 77; Resp 18; Pulse Ox 99% ; Pain 3/10; kt5 19:45 Body Mass Index 32.73 (125.19 kg, 195.58 cm) dd2 19:45 Pain Scale: Adult dd2 20:56 Pain Scale: Adult kt5 ED Course: 19:34 Patient arrived in ED. mr 19:35 Anders Roman MD is Attending Physician. sp3 19:47 Triage completed. dd2 19:47 Arm band placed on right wrist. dd2 20:12 CBC with Diff Sent. vk 20:12 CMP Sent. vk 20:12 Lipase Sent. vk 20:12 Initial lab(s) drawn, by me, sent to lab. Inserted saline lock: 20 gauge in right vk antecubital area, using aseptic technique. Blood collected. Flushed with 10 mL NS. 20:13 Marsha Gonzalez, RN is Primary Nurse. kt5 20:13 Patient has correct armband on for positive identification. Bed in low position. Call kt5 light in reach. Side rails up X 1. Client placed on continuous cardiac and pulse oximetry monitoring. NIBP monitoring applied. Door closed. Noise minimized. Warm blanket given. Pillow given. 21:04 No provider procedures requiring assistance completed. IV discontinued, intact, kt5 bleeding controlled, No redness/swelling at site. Pressure dressing applied. 21:05 Provided Education on: follow up and medications. kt5 Administered Medications: 20:24 Drug: NS 0.9% IV 1000 ml IV at 1 bolus Per protocol; to be given as a bolus over 60 kt5 minutes Route: IV; Rate: 1 bolus; Site: right antecubital; 20:56 Follow up: IV Status: Completed infusion; IV Intake: 1000ml kt5 20:56 Follow up: Response: No adverse reaction kt5 20:24 Drug: Ondansetron IVP 4 mg IVP once; over 2 minutes Route: IVP; Site: right antecubital;kt5 20:56 Follow up: Response: No adverse reaction; Nausea is decreased kt5 Medication: 20:13 VIS not applicable for this client. kt5 Intake: 20:56 IV: 1000ml; Total: 1000ml. kt5 Outcome: 20:51 Discharge ordered by . sp3 21:04 Discharged to home ambulatory, kt5 21:04 Condition: improved 21:04 Discharge instructions given to patient, Instructed on discharge instructions, follow up and referral plans. Demonstrated understanding of instructions, follow-up care, medications, Prescriptions given X 1, 21:06 Patient left the ED. kt5 Signatures: Lona Pang, Jimbo Choi mr Anders Roman MD MD sp3 Carola Juan DIANA, RN RN dd2 Marsha Gonzalez RN RN kt5
--- NOTE | 2025-06-07 20:51 | EDPHYS ---
Physician Documentation [facility] Name: Noah Putnam Age: 54 yrs Sex: Male : 1970 Arrival Date: 06/07/2025 Time: 19:20 Bed 14 Private MD: ED Physician Anders Roman HPI: 06/07 20:03 This 54 yrs old Black Male presents to ER via Ambulatory with complaints of Abdominal sp3 Pain. 20:06 54-year-old male with history of chronic kidney disease, chronic pancreatitis, sp3 hypertension presents to the ED with recurrent acute on chronic abdominal pain. Patient states she has an appointment with Luz Maria Ng in the coming week. Denies any other new aspects of his presentation. ROS otherwise negative.. Historical: - Allergies: 19:47 Bee Venom; dd2 - PMHx: 19:47 chronic kidney disease; Chronic Pancreatitis; Herniated disc; Hypertension; dd2 - PSHx: 19:47 left arm surgery; dd2 - Immunization history:: Adult Immunizations up to date. - Infectious Disease History:: Denies. - Social history:: Smoking status: Patient denies any tobacco usage or history of. ROS: 20:07 Constitutional: Negative for fever, chills, and weight loss, Eyes: Negative for injury, sp3 pain, redness, and discharge, ENT: Negative for injury, pain, and discharge, Neck: Negative for injury, pain, and swelling, Cardiovascular: Negative for chest pain, palpitations, and edema, Respiratory: Negative for shortness of breath, cough, wheezing, and pleuritic chest pain, MS/Extremity: Negative for injury and deformity, Skin: Negative for injury, rash, and discoloration, Neuro: Negative for headache, weakness, numbness, tingling, and seizure, Psych: Negative for depression, anxiety, suicide ideation, homicidal ideation, and hallucinations, Allergy/Immunology: Negative for hives, rash, and allergies, Endocrine: Negative for neck swelling, polydipsia, polyuria, polyphagia, and marked weight changes, Hematologic/Lymphatic: Negative for swollen nodes, abnormal bleeding, and unusual bruising, 20:07 All other systems are negative, Exam: 20:07 Constitutional: This is a well developed, well nourished patient who is awake, alert, sp3 and in no acute distress. Head/Face: Normocephalic, atraumatic. Eyes: Pupils equal round and reactive to light, extra-ocular motions intact. Lids and lashes normal. Conjunctiva and sclera are non-icteric and not injected. Cornea within normal limits. Periorbital areas with no swelling, redness, or edema. Neck: Trachea midline, no thyromegaly or masses palpated, and no cervical lymphadenopathy. Supple, full range of motion without nuchal rigidity, or vertebral point tenderness. No Meningismus. Chest/axilla: Normal chest wall appearance and motion. Nontender with no deformity. No lesions are appreciated. Cardiovascular: Regular rate and rhythm with a normal S1 and S2. No gallops, murmurs, or rubs. Normal PMI, no JVD. No pulse deficits. Respiratory: Lungs have equal breath sounds bilaterally, clear to auscultation and percussion. No rales, rhonchi or wheezes noted. No increased work of breathing, no retractions or nasal flaring. Back: No spinal tenderness. No costovertebral tenderness. Full range of motion. Skin: Warm, dry with normal turgor. Normal color with no rashes, no lesions, and no evidence of cellulitis. MS/ Extremity: Pulses equal, no cyanosis. Neurovascular intact. Full, normal range of motion. Neuro: Awake and alert, GCS 15, oriented to person, place, time, and situation. Cranial nerves II-XII grossly intact. Motor strength 5/5 in all extremities. Sensory grossly intact. Cerebellar exam normal. Normal gait. Psych: Awake, alert, with orientation to person, place and time. Behavior, mood, and affect are within normal limits. 20:07 Abdomen/GI: Mild epigastric abdominal pain to palpation without peritoneal signs, rebound or guarding., Vital Signs: 19:45 BP 144 / 94; Pulse 87; Resp 16; Temp 97.9; Pulse Ox 98% ; Weight 125.19 kg; Height 6 dd2 ft. 5 in. ; Pain 8/10; 20:13 BP 132 / 98; Pulse 80; Resp 16; Pulse Ox 95% ; kt5 20:56 BP 134 / 69; Pulse 77; Resp 18; Pulse Ox 99% ; Pain 3/10; kt5 19:45 Body Mass Index 32.73 (125.19 kg, 195.58 cm) dd2 19:45 Pain Scale: Adult dd2 20:56 Pain Scale: Adult kt5 MDM: 19:42 Medical Screening Exam initiated sp3 20:08 Data reviewed: vital signs, nurses notes, old medical records, lab test result(s). ED sp3 course: 54-year-old male with PMH above now with acute on chronic recurrent abdominal pain. CT scan not indicated. Will check routine labs including lipase. If workup negative will stay for discharge home with IV fluids and ondansetron given in the ED. Will layer on pain medication if indicated. Differential diagnosis includes acute on chronic pancreatitis, gastritis, musculoskeletal, other intra-abdominal pathology, among others.. 20:49 ED course: Full workup negative and creatinine at baseline at 1.6. Lipase is normal. sp3 Vital signs are normal. Will discharge patient home on ODT ondansetron and follow-up with his GI team.. 06/07 19:47 Order name: CBC with Diff; Complete Time: 20:49 sp3 06/07 19:47 Order name: CMP; Complete Time: 20:49 sp3 06/07 19:47 Order name: Lipase; Complete Time: 20:49 sp3 06/07 19:47 Order name: IV Saline Lock; Complete Time: 20:12 sp3 06/07 19:47 Order name: Labs collected and sent; Complete Time: 20:12 sp3 Administered Medications: 20:24 Drug: NS 0.9% IV 1000 ml IV at 1 bolus Per protocol; to be given as a bolus over 60 kt5 minutes Route: IV; Rate: 1 bolus; Site: right antecubital; 20:56 Follow up: IV Status: Completed infusion; IV Intake: 1000ml kt5 20:56 Follow up: Response: No adverse reaction kt5 20:24 Drug: Ondansetron IVP 4 mg IVP once; over 2 minutes Route: IVP; Site: right antecubital;kt5 20:56 Follow up: Response: No adverse reaction; Nausea is decreased kt5 Disposition Summary: 06/07/25 20:51 Discharge Ordered Notes: Location: Home sp3 Condition: Stable sp3 Diagnosis - Abdominal pain, unspecified sp3 Followup: sp3 - With: Private Physician - When: Upon discharge from the Emergency Department - Reason: Continuance of care Discharge Instructions: - Discharge Summary Sheet sp3 - Abdominal Pain, Adult sp3 Forms: - Medication Reconciliation Form sp3 - Antibiotic Education sp3 - Prescription Opioid Use sp3 - Patient Portal Instructions sp3 - Leadership Thank You Letter sp3 Prescriptions: - ondansetron 4 mg Oral Tablet,disintegrating - take 1 tablet ORAL route every 6 hours as needed for nausea and vomiting; 20 sp3 tablet; Refills: 0, Product Selection Permitted Signatures: Dispatcher [employer] EDAnders Little MD MD sp3 ILANA DUNCAN RN RN dd2 Marsha Gonzalez RN RN kt5
[2025-06-07 21:49] VITALS: TEMP 97.9
[2025-06-07 21:57] VITALS: BP 134/69; O2SAT 99
== END 2025-06-07 21:06 | disposition home or self-care (01) ==
LOC: ER 19:20
DX: R10.9 Unspecified abdominal pain (principal); I12.9 Hypertensive chronic kidney disease with stage 1 through stage 4 chronic kidney disease, or unspecified chronic kidney disease; N18.9 Chronic kidney disease, unspecified
CPT/HCPCS: 96361; 85025; 36415; 83690; 80053; 96374; 99284; J2405; J7030